=== PATIENT | female | born 1950 | race Caucasian/White ===

== ENCOUNTER 2022-10-30 11:32 | Outpatient (OUT) | payer MEDICARE, SELFPAY ==
--- NOTE | 2022-10-30 11:41 | XR_ITS ---
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 FINDINGS: SPINE ANALYSIS: Average bone mineral density is 1.4-5 g/cm2. T-score (standard deviation relative to young adult mean): 2.0 . -2.0% change since prior study. HIP ANALYSIS: Lowest bone mineral density is within the left femoral trochanter, 0.739 g/cm2. T-score (standard deviation relative to young adult mean): -1.0 . -2.3% change since prior study. IMPRESSION: [employer] Classification: Normal - Low Fracture Risk Electronically authenticated by: PARTHA CAMACHO Date: 10/30/2022 12:57
== END 2022-10-30 11:33 ==
LOC: RAD 11:33
PROVIDERS: PCP Internal Medicine
DX: K74.3 Primary biliary cirrhosis (principal)
CPT/HCPCS: 77080

== ENCOUNTER 2022-12-03 08:30 | Outpatient (OUT) | payer MEDICARE, SELFPAY ==
--- NOTE | 2022-12-03 08:42 | US_ITS ---
[address] [address] Patient Name: MASSIMO CALLAHAN MRN: [id number] date: 1950 Sex: F Assigned Patient Location: [place] Current Patient Location: [place] Accession/Order Number: [id number] Exam Date: 12/03/2022 08:45 Report Date: 12/03/2022 10:19 At the request of: NON-STAFF PHYSICIAN Procedure: US right upper quadrant EXAMINATION: US right upper quadrant HISTORY: Biliary Cholangitis K74.3, Thrombocytopenia D69.6 COMPARISON: No relevant comparison available. TECHNIQUE: Transabdominal evaluation of the right upper quadrant. FINDINGS: LIVER: Nodular liver with heterogeneous echotexture. PORTAL VEIN: Duplex Doppler demonstrates normal hepatopetal flow pattern with flow velocity averaging 31 cm/s. GALLBLADDER: Contains a 1.5 cm stone. No wall thickening or free fluid. BILIARY: No abnormal dilation or stones. Common bile duct diameter is within normal limits. PANCREASE: No visible mass, abnormal atrophy, or duct dilation. KIDNEY: Contain several nonobstructing stones, largest is 5 mm. Benign-appearing 4.8 cm cyst projecting from inferior pole. Size: 9.9 x 5.5 x 5.7 cm US/US right upper quadrant IMPRESSION: 1. Heterogeneous nodular liver which can be seen with cirrhosis. 2. Cholelithiasis. No ultrasound evidence of acute cholecystitis. 3. Nonobstructing right nephrolithiasis. Electronically authenticated by: PARTHA CAMACHO Date: 12/03/2022 10:19
--- NOTE | 2022-12-03 08:50 | US_ITS ---
[address] [address] Patient Name: MASSIMO CALLAHAN MRN: [id number] date: 1950 Sex: F Assigned Patient Location: [place] Current Patient Location: Accession/Order Number: [id number] Exam Date: 12/03/2022 08:51 Report Date: 12/03/2022 09:52 At the request of: NON-STAFF PHYSICIAN Procedure: US abdomen limited EXAM: US abdomen limited HISTORY: SPLENOMEGALY COMPARISON: None. TECHNIQUE: Transabdominal ultrasound evaluation. FINDINGS: Normal contour and homogeneous echotexture. Color Doppler demonstrates uniform blood flow throughout the spleen. No mass or fluid collection. Size: 13.3 x 14.6 x 4.7 cm. US/US abdomen limited IMPRESSION: 1. Mild splenomegaly of uncertain etiology. Electronically authenticated by: PARTHA CAMACHO Date: 12/03/2022 09:52
== END 2022-12-03 08:31 | disposition home or self-care (01) ==
LOC: US 08:30
PROVIDERS: PCP Internal Medicine
DX: K74.3 Primary biliary cirrhosis (principal); D69.6 Thrombocytopenia, unspecified; K80.20 Calculus of gallbladder without cholecystitis without obstruction; N20.0 Calculus of kidney
CPT/HCPCS: 76705

== ENCOUNTER 2022-12-28 12:48 | Outpatient (OUT) | payer MEDICARE, SELFPAY ==
--- NOTE | 2022-12-28 12:50 | MM_ITS ---
Patient: MASSIMO CALLAHAN Exam Date: 12/28/2022 : 1950 Gender:F Ordering : DR ZEUS [facility] Admission #: [id number] Family : DR GAMBOA RAFITA Order #: [id number] CLICK HERE TO VIEW EXAM RADIOLOGY REPORT PROCEDURE: MM TOMOSYNTHESIS SCREENING BI COMPARISON: MG MAMM SCREEN 3D KRISH CAD, 12/25/2021. MG MAMM SCREEN 3D KRISH CAD, 12/23/2020. MG MAMM SCREEN KRISH W CAD, 12/19/2019. MG MAMM KRISH SCRN W CAD DIG, 12/07/2012. INDICATIONS: Screening Calculator Name NCI Breast Cancer Risk Assessment Tool 5 Year Breast Cancer Risk 2.90% Lifetime Breast Cancer Risk 7.10% Personal Breast Cancer No Personal Ovarian Cancer No Treatments None Family Cancers Sister with thyroid cancer at age 63. LOCATION: [facility] BREAST COMPOSITION: Heterogeneously dense,which may obscure small masses. FINDINGS: DIAGNOSTIC CATEGORY 2--BENIGN FINDING: RIGHT BREAST: No significant suspicious finding. Scattered benign-appearing calcifications are present. No significant change has occurred. LEFT BREAST: No significant suspicious finding. Scattered benign-appearing calcifications are present. No significant change has occurred. RECOMMENDATIONS: ROUTINE MAMMOGRAM AND CLINICAL EVALUATION IN 12 MONTHS. PLEASE NOTE: A NORMAL MAMMOGRAM DOES NOT EXCLUDE THE POSSIBILITY OF BREAST CANCER. A CLINICALLY SUSPICIOUS PALPABLE LUMP SHOULD BE BIOPSIED. Dictated by: Nikko Barbosa M.D. on 12/30/2022 at 12:02 Approved by: Nikko Barbosa M.D. on 12/30/2022 at 12:07
== END 2022-12-28 12:49 | disposition home or self-care (01) ==
LOC: MAMMO 12:48
PROVIDERS: PCP Internal Medicine; Visit Provider Midwife
DX: Z12.31 Encounter for screening mammogram for malignant neoplasm of breast (principal); Z80.8 Family history of malignant neoplasm of other organs or systems
CPT/HCPCS: 77063; 77067

== ENCOUNTER 2023-01-05 12:56 | Outpatient (OUT) | payer MEDICARE, SELFPAY ==
--- NOTE | 2023-01-05 | CONS_ITS ---
CONSULTATION DATE: ??01/05/2023 TO:? Dr. Shay CHIEF COMPLAINT:? Includes neck pain, shoulder pain, worse on the left side.? HISTORY:? She reports the pain as being 8/10, sharp in character, with a deep aching component, increased with activities such as lifting maneuvers, pushing/pulling maneuvers, cervical extension.? She feels most comfortable in the semi-recumbent position.? Denies any change in bowel and bladder habits or new sensorimotor changes in the upper extremities, MEDICATIONS:? Current medications include Novato 5 mg b.i.d. p.r.n.? She reports this does help her pain symptoms, improves her quality of life and level of functioning.? She denies any side effects.? EXAM:? Notable for patient having mild dysesthesia long the left C6 dermatome.? She otherwise has a non-focal motor examination of her upper extremities.? No appreciable Spurling?s sign. IMPRESSION:? Our impression is patient appears to have chronic pain secondary to known cervical spinal stenosis.?? Patient complains of left sided neck pain and left upper extremity pain.? She has failed conservative therapy with various non-steroidal agents, most recently ibuprofen, and narcotics have been used for at least the last 6-7 months.? A home exercises program and previous aquatic therapy have failed to improve her symptomatology or level of functioning.? RECOMMENDATIONS:? Therefore, I recommend patient undergo cervical epidural steroid injection under fluoroscopic guidance.? I have also asked her to consider aquatic therapy.? Procedure discussed with the patient.? All her questions were answered.? She agrees to proceed with the outlined plan. As part of providing excellent, safe, comprehensive care, the following was completed at our patient's visit: 1. A medication reconciliation and review to ensure accurate knowledge of current/active medications, including asking our patients to inform us about any [id number] medications or herbal remedies/nutritional supplements/alternative remedies. 2. A review to specifically ensure our patients have had annual screening for: elevated body mass index (BMI, see intake chart for exact total), tobacco use, screening for depression, and screening for unhealthy alcohol use.? When screening is concerning, patients are provided with education and the specific recommendation to discuss the concerning health issue and treatment options with their primary care provider. JENNA
== END 2023-01-05 12:57 | disposition home or self-care (01) ==
PROVIDERS: PCP Internal Medicine; Visit Provider Anesthesiology Pain Medicine
DX: M48.02 Spinal stenosis, cervical region (principal); G89.29 Other chronic pain
CPT/HCPCS: G0463

== ENCOUNTER 2023-01-26 08:53 | Day surgery (SDC) | payer MEDICARE, SELFPAY ==
[2023-01-26 09:05] VITALS: BP 94/64; PULSE 69; RESP 16; TEMP 36.1; O2SAT 98
[2023-01-26 09:12] LABS: Glucometer 182 mg/dL (74-106)
[2023-01-26 10:18] VITALS: BP 138/64; PULSE 63; RESP 18; O2SAT 98
[2023-01-26] MEDS: 0.9 % SODIUM CHLORIDE 10 ML SYRINGE - SALINE FLUSH INJ (10:19)
[2023-01-26] MEDS: BUPIVACAINE HCL 0.25% PF 25 MG/10 ML VIAL INJ (10:19)
[2023-01-26] MEDS: IOHEXOL 240 MG/ML - 10 ML VIAL INJ (10:20)
[2023-01-26] MEDS: LIDOCAINE HCL 2% PF 100 MG/5 ML VIAL INJ (10:20)
[2023-01-26] MEDS: DEXAMETHASONE SODIUM PHOSPHATE 10 MG/ML VIAL INJ (10:20)
[2023-01-26 10:22] VITALS: BP 141/68; PULSE 65; RESP 18; O2SAT 97
--- NOTE | 2023-01-26 10:58 | P.ON_ITS ---
Date of procedure: 01/26/23 Pre-op diagnosis: Cervical radiculopathy Post-op diagnosis: same as pre-op Procedure: Cercical 7, T1 Epidural Steroid Injection Under fluoroscopic guidance Immediate complications none Solution used for injection: Marcaine 0.25% 2mL, 2cc Normal saline, Depo-Medrol 80mg Omnipaque 3 mL Anesthesia local 2% lidocaine up to 4ml Timeout process compliant After informed consent obtained. Patient brought to the procedure room placed in the prone position. Skin overlying the area was prepped and draped in a sterile fashion using betadine. 25 gauge needle used to raise a skin wheel with local anesthetic over the target area identified under fluoroscopy. A 17 gauge Touhy needle Was inserted over the anesthetized area and directed towards the inter- space under fluoroscopic guidance. Epidural space was identified with loss of resistance technique to air. Needle Tip placement confirmed with injection of contrast solution. Steroid solution was then injected. Anesthesia: Local Surgeon: Jarek Valenzuela Condition: stable
== END 2023-01-26 10:29 | disposition home or self-care (01) ==
LOC: SURGOUT 08:54
PROVIDERS: PCP Internal Medicine; Visit Provider Anesthesiology Pain Medicine
DX: M54.12 Radiculopathy, cervical region (principal); Z79.82 Long term (current) use of aspirin; Z79.84 Long term (current) use of oral hypoglycemic drugs; Z79.899 Other long term (current) drug therapy
CPT/HCPCS: 36415; 62321; 82948; J1100; Q9966

== ENCOUNTER 2023-02-03 11:36 | Outpatient (OUT) | payer MEDICARE, SELFPAY ==
--- NOTE | 2023-02-03 11:39 | PM.CN ---
Consult Note: HPI Data of Consult Patient: known to practice within the last 3 years Requesting Physician: Marcella Cuenca NP Primary Care Provider: COOPER ELLER Consult Narrative Reason for consult: procedure f/u Narrative: Ashlee lira pleasant 72 year old female presents for evaluation of chronic neck pain. Recently underwent a C7-T1 BERNADR with mild pain relief roughly 30%. Today rating pain 5-6/10 and would like to discuss additional treatment options cc:: CC: Marcella Cuenca NP Review of Systems ROS Status of ROS 10 or more systems reviewed and unremarkable except as noted in history and below Ears, nose, mouth, and throat Reports: neck pain Musculoskeletal Reports: back pain PFSH PFSH Medical History (Updated 02/03/23 @ 12:43 by Marcella Cuenca NP) Surgical History Meds Home Medications and Allergies Home Medications Medication Instructions Recorded Confirmed Type hydrocodone 5 mg-acetaminophen 325 1 tab PO BID PRN pain #60 tabs 01/05/23 01/26/23 Rx mg tablet acidophilus 100 million 1 cap PO DAILY 01/11/23 01/26/23 History cell-pectin, citrus 10 mg capsule (Probiotic Acidophilus-Pectin) aspirin 81 mg tablet,delayed 81 mg PO DAILY 01/11/23 01/26/23 History release atorvastatin 20 mg tablet 20 mg PO DAILY 01/11/23 01/26/23 History calcium citrate 200 mg (950 mg) 200 mg PO TID 01/11/23 01/26/23 History tablet carvedilol 25 mg tablet 25 mg PO Q12H 01/11/23 01/26/23 History cetirizine 5 mg tablet (Allergy 5 mg PO DAILY PRN allergy symptoms 01/11/23 01/26/23 History Relief (cetirizine)) cholecalciferol (vitamin D3) 50 2,000 unit PO DAILY 01/11/23 01/26/23 History mcg (2,000 unit) capsule cyclosporine 0.05 % eye drops in a 1 drp ophthalmic (eye) Q12H 01/11/23 01/26/23 History dropperette (Restasis) hydrochlorothiazide 12.5 mg tablet 12.5 mg PO DAILY 01/11/23 01/26/23 History levothyroxine 100 mcg tablet 100 mcg PO DAILY 01/11/23 01/26/23 History meloxicam 15 mg tablet 15 mg PO DAILY 01/11/23 01/26/23 History metformin 500 mg tablet 500 mg PO BID 01/11/23 01/26/23 History olopatadine 0.2 % eye drops (Eye 1 drp ophthalmic (eye) DAILY 01/11/23 01/26/23 History Allergy Itch Relief) omega 2-blu-som-fish oil 100 1 cap PO DAILY 01/11/23 01/26/23 History mg-160 mg-1,000 mg capsule (Fish Oil) trazodone 50 mg tablet 100 mg PO BEDTIME 01/11/23 01/26/23 History triamcinolone acetonide 55 mcg 2 spray intranasal DAILY 01/11/23 01/26/23 History nasal spray aerosol (24 Hour Nasal Allergy) ursodiol 300 mg capsule 300 mg PO DAILY 01/11/23 01/26/23 History valsartan 320 mg tablet 320 mg PO DAILY 01/11/23 01/26/23 History Allergies Allergy/AdvReac Type Severity Reaction Status Date / Time Penicillins Allergy Severe Verified 01/11/23 14:48 morphine Allergy Mild Rash Verified 01/11/23 14:48 nickel Allergy Mild Rash Verified 01/11/23 14:48 sulfite Allergy Watery Eye Verified 01/11/23 14:48 Exam Constitutional Documenting provider has reviewed patient's vital signs: yes Common normals: no apparent distress, oriented x3, healthy appearing, alert and well nourished General appearance: cooperative [facility] Common normals: normocephalic, hearing grossly normal bilaterally and moist oral mucous membranes Head and scalp: normocephalic Eye Common normals: PERRL Pupil: PERRL Neck & C-Spine Common normals: full ROM General: normal visual inspection Cervical spine: pain with cervical ROM, cervical spine tenderness and paracervical muscle tenderness Chest Common normals: inspection of chest normal Respiratory Common normals: normal respiratory effort, no retractions and no use of accessory muscles Back & Pelvis Lumbar spine/lower back: ROM limited and pain with ROM Other: facet loading positive on left side. Neuro Common normals: oriented x3, CN's II-XII intact bilaterally, moves all extremities, no focal motor deficits, no sensory deficits noted and deep tendon reflexes 2+ bilaterally Sensorium/orientation: alert Motor exam: strength 5/5 throughout and no movement abnormalities noted Psych Common normals: mental status grossly normal, thought process normal, cooperative, affect normal, speech normal and activity/motor behavior normal Speech: normal speech Thought process: normal thought process Results Additional Findings Additional findings: As part of providing excellent, safe, comprehensive care, the following was completed at our patient's visit: 1. A medication reconciliation and review to ensure accurate knowledge of current/active medications, including asking our patients to inform us about any deli-zog-oswuzwl medications or herbal remedies/nutritional supplements/alternative remedies. 2. A review to specifically ensure our patients have had annual screening for: elevated body mass index (BMI), tobacco use, screening for depression, and screening for unhealthy alcohol use. When screening is concerning, patients are provided with education and the specific recommendation to discuss the concerning health issue and treatment options with their primary care provider. Assessment and Plan Assessment and Plan (1) Cervical radiculopathy: (2) Lumbar spondylosis: Plan patient would like to repeat L3-4 L4-5 RFAs as she has had benefit in the past repeat left L 3-4 L4-5 MBB X2 under fluoroscopy, if provides >80% pain relief and functional improvement will proceed with thermal RFA start duloxetine 30mg HS f/u after injection
== END 2023-02-03 11:37 | disposition home or self-care (01) ==
LOC: PM 11:37
PROVIDERS: PCP Internal Medicine; Visit Provider Nurse Practitioner
DX: M54.12 Radiculopathy, cervical region (principal); M47.816 Spondylosis without myelopathy or radiculopathy, lumbar region
CPT/HCPCS: G0463

== ENCOUNTER 2023-02-04 10:54 | Outpatient (RCR) | payer MEDICARE, SELFPAY | END 2023-03-26 15:01 | disposition home or self-care (01) | LOC: PT 10:54 | PROVIDERS: PCP Internal Medicine; Visit Provider Nurse Practitioner | DX: M48.02 Spinal stenosis, cervical region (principal) | CPT/HCPCS: 97113; 97163 ==

== ENCOUNTER 2023-03-15 10:51 | Outpatient (OUT) | payer MEDICARE, SELFPAY ==
[2023-03-15 11:46] LABS: Microalbumin Urine Random <1.3 mg/dL (<=30.0)
[2023-03-15 12:26] LABS: Alanine Aminotransferase 52 U/L (14-59); Albumin Level 3.5 g/dL (3.4-5.0); Alkaline Phosphatase 195 U/L (46-116); Aspartate Amino Transferase 50 U/L (15-37); BUN Creatinine Ratio 34.9; Bilirubin Total 0.5 mg/dL (0.2-1.0); Calcium 9.7 mg/dL (8.5-10.1); Carbon Dioxide 27.2 mmol/L (21.0-32.0); Chloride 105 mmol/L (98-107); Chol HDL Ratio 2.5; Cholesterol 102 mg/dL (<=200); Estimated GFR (African America 50 (>=60); Estimated GFR (Non-African Ame 42 (>=60); Globulin 3.6 g/dL; Glucose 124 mg/dL (74-106); HDL Cholesterol 41 mg/dL (40-60); LDL Cholesterol Calculated 47.6 mg/dL; Potassium 4.2 mmol/L (3.5-5.1); Sodium 141 mmol/L (136-145); Thyroid Stimulating Hormone 0.967 uIU/mL (0.358-3.740); Total Protein 7.1 g/dL (6.4-8.2); Triglycerides 67 mg/dL (<=150); VLDL CHOLESTEROL 13.4 mg/dL
== END 2023-03-15 10:52 | disposition home or self-care (01) ==
LOC: LAB 10:55
PROVIDERS: PCP Internal Medicine; Visit Provider Internal Medicine
DX: E78.2 Mixed hyperlipidemia (principal); I10 Essential (primary) hypertension; E03.8 Other specified hypothyroidism
CPT/HCPCS: 36415; 80053; 80061; 82043; 84443

== ENCOUNTER 2023-06-23 10:09 | Outpatient (OUT) | payer MEDICARE, SELFPAY ==
--- NOTE | 2023-06-23 10:27 | P.CN_ITS ---
Consult Note: HPI Data of Consult Patient: known to practice within the last 3 years Requesting Physician: Marcella Cuenca NP Primary Care Provider: COOPER ELLER Consult Narrative Reason for consult: procedure f/u Narrative: Ashlee lira pleasant 72 year old female presents for evaluation of chronic low back pain and left hip pain. Today pain 10/10 worse with all activity, denies numbness tingling weakness of legs. Patient recovering from neck surgery with Dr Downs, very pleased with success. Patient would like to discuss chronic low back and left hip pain. 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 - Primary biliary cirrhosis (ICD-10) Osteoarthritis ?M19.90 - Unspecified osteoarthritis, unspecified site (ICD-10) Cervical myelopathy ?G95.9 - Disease of spinal cord, unspecified (ICD-10) Hypothyroid ?E03.9 - Hypothyroidism, unspecified (ICD-10) Diabetes ?E11.9 - Type 2 diabetes mellitus without complications (ICD-10) High cholesterol ?E78.00 - Pure hypercholesterolemia, unspecified (ICD-10) HTN (hypertension) ?I10 - Essential (primary) hypertension (ICD-10) Surgical History History of bunionectomy of both great toes ?Z98.890 - Other specified postprocedural states (ICD-10) History of sinus surgery ?Z98.890 - Other specified postprocedural states (ICD-10) H/O excision of ganglion cyst ?Z98.890 - Other specified postprocedural states (ICD-10) History of repair of rotator cuff ?Z98.890 - Other specified postprocedural states (ICD-10) History of incisional hernia repair ?Z98.890 - Other specified postprocedural states (ICD-10) ?Z87.19 - Personal history of other diseases of the digestive system (ICD-10) History of hysterectomy ?Z90.710 - Acquired absence of both cervix and uterus (ICD-10) History of total knee arthroplasty ?Z96.659 - Presence of unspecified artificial knee joint (ICD-10) Meds Home Medications and Allergies Home Medications Medication Instructions Recorded Confirmed Type hydrocodone 5 mg-acetaminophen 325 1 tab PO BID PRN pain #60 tabs 01/05/23 01/26/23 Rx mg tablet acidophilus 100 million 1 cap PO DAILY 01/11/23 01/26/23 History cell-pectin, citrus 10 mg capsule (Probiotic Acidophilus-Pectin) aspirin 81 mg tablet,delayed 81 mg PO DAILY 01/11/23 01/26/23 History release atorvastatin 20 mg tablet 20 mg PO DAILY 01/11/23 01/26/23 History calcium citrate 200 mg (950 mg) 200 mg PO TID 01/11/23 01/26/23 History tablet carvedilol 25 mg tablet 25 mg PO Q12H 01/11/23 01/26/23 History cetirizine 5 mg tablet (Allergy 5 mg PO DAILY PRN allergy symptoms 01/11/23 01/26/23 History Relief (cetirizine)) cholecalciferol (vitamin D3) 50 2,000 unit PO DAILY 01/11/23 01/26/23 History mcg (2,000 unit) capsule cyclosporine 0.05 % eye drops in a 1 drp ophthalmic (eye) Q12H 01/11/23 01/26/23 History dropperette (Restasis) hydrochlorothiazide 12.5 mg tablet 12.5 mg PO DAILY 01/11/23 01/26/23 History levothyroxine 100 mcg tablet 100 mcg PO DAILY 01/11/23 01/26/23 History meloxicam 15 mg tablet 15 mg PO DAILY 01/11/23 01/26/23 History metformin 500 mg tablet 500 mg PO BID 01/11/23 01/26/23 History olopatadine 0.2 % eye drops (Eye 1 drp ophthalmic (eye) DAILY 01/11/23 01/26/23 History Allergy Itch Relief) omega 7-uvu-nwx-fish oil 100 1 cap PO DAILY 01/11/23 01/26/23 History mg-160 mg-1,000 mg capsule (Fish Oil) trazodone 50 mg tablet 100 mg PO BEDTIME 01/11/23 01/26/23 History triamcinolone acetonide 55 mcg 2 spray intranasal DAILY 01/11/23 01/26/23 History nasal spray aerosol (24 Hour Nasal Allergy) ursodiol 300 mg capsule 300 mg PO DAILY 01/11/23 01/26/23 History valsartan 320 mg tablet 320 mg PO DAILY 01/11/23 01/26/23 History hydrocodone 5 mg-acetaminophen 325 1 tab PO BID PRN pain #60 tabs 03/10/23 Rx mg tablet Allergies Allergy/AdvReac Type Severity Reaction Status Date / Time Penicillins Allergy Severe Verified 01/11/23 14:48 morphine Allergy Mild Rash Verified 01/11/23 14:48 nickel Allergy Mild Rash Verified 01/11/23 14:48 sulfite Allergy Watery Eye Verified 01/11/23 14:48 Exam HENMT Common normals: normocephalic, hearing grossly normal bilaterally and moist oral mucous membranes Head and scalp: normocephalic Eye Common normals: PERRL Pupil: PERRL Neck & C-Spine Common normals: full ROM General: normal visual inspection Chest Common normals: inspection of chest normal Respiratory Common normals: normal respiratory effort, no retractions and no use of accessory muscles Back & Pelvis Lumbar spine/lower back: ROM limited, pain with ROM and straight leg raise negative bilaterally Sacroiliac joints: SI joints normal Other: facet loading positive on left side. Extremity Left lower extremity: hip joint Other: tenderness and pain with palpation of ischial bursa negative GTB negative external log roll mild pain with internal log roll pain follow IT band Extremity image (front): 2 1. Extremity image (back): 2 1. Neuro Common normals: oriented x3, CN's II-XII intact bilaterally, moves all extremities, no focal motor deficits, no sensory deficits noted and deep tendon reflexes 2+ bilaterally Sensorium/orientation: alert Motor exam: strength 5/5 throughout and no movement abnormalities noted Psych Common normals: mental status grossly normal, thought process normal, cooperative, affect normal, speech normal and activity/motor behavior normal Speech: normal speech Thought process: normal thought process Assessment and Plan Assessment and Plan (1) Ischial bursitis of left side: (2) IT band syndrome: (3) Left hip pain: (4) Lumbar spondylosis: Plan medrol dose pack with food left hip xray PT for stretching, evaluate and treat ischial bursitis of left side and IT band syndrome continue mobic 15mg daily with food will discuss potential injections with Dr Valenzuela f/u 8 weeks
== END 2023-06-23 10:10 | disposition home or self-care (01) ==
LOC: PM 10:10
PROVIDERS: PCP Internal Medicine; Visit Provider Nurse Practitioner
DX: M25.552 Pain in left hip (principal); M70.72 Other bursitis of hip, left hip; M76.32 Iliotibial band syndrome, left leg; M47.816 Spondylosis without myelopathy or radiculopathy, lumbar region
CPT/HCPCS: 73502; G0463

== ENCOUNTER 2023-06-23 10:58 | Outpatient (OUT) | payer MEDICARE, SELFPAY ==
--- NOTE | 2023-06-23 11:16 | XR_ITS ---
[facility] [place] [id number] Patient Name: MASSIMO CALLAHAN MRN: [id number] date: 1950 Sex: F Assigned Patient Location: [facility] Current Patient Location: [facility] Accession/Order Number: [id number] Exam Date: 06/23/2023 11:25 Report Date: 06/23/2023 13:03 At the request of: THERON TEMPLE Procedure: XR hip LT min 2V PROCEDURE: XR hip LT min 2V COMPARISON: None. HISTORY: Left Hip Pain FINDINGS: BONES:No acute fracture or dislocation. Severe hip osteoarthritis with joint space narrowing and extensive sclerosis and marginal osteophyte relation of the acetabulum SOFT TISSUES:Negative. No visible soft tissue swelling. EFFUSION:None visible. OTHER: Vascular calcifications. Neurostimulator wire projects over the left sacrum XR/XR hip LT min 2V IMPRESSION: Severe degenerative changes of the left hip Electronically authenticated by: WILVER CARTAGENA Date: 06/23/2023 13:03
--- OUTSIDE RECORDS SUMMARY | 2023-06-23 11:17 | XMS_ITS | CCD ---
Author Name Unknown Address [id number] [place] [address] Organization [facility] Care Team Providers Care Station Installation Supervisor Name Role Phone Vladimir Greco Primary Care Physician Unavail able Vladimir Greco Unavailable Unavailable Cooper Eller Primary Care Provider [phone] Vladimir Greco Primary Care Physician Unavail able Vladimir Greco Primary Care Physician Unavail able Cooper Eller Primary Care Provider Vladimir Greco Primary Care Physician Unavail able Vladimir Greco Primary Care Physician Unavail able Vladimir Greco Primary Care Physician Unavail able Rafita FOSTER, Cooper Ambriz Primary Care Provider [phone] Rafita FOSTER, Cooper Ambriz Primary Care Provider [phone] Cooper Eller MD Primary Care Provider [phone] COOPER ELLER Primary Care Unavailable PRASHANT HERNANDEZ Referring Unavailable SANDRA ALVARENGA Attending Unavailable SANDRA ALVARENGA Referring Unavailable COOPER ELLER Primary Care Unavailable COOPER ELLER Primary Care Unavailable ALEXANDRA FRYE Referring Unavailable COOPER ELLER Primary Care Unavailable ALEXANDRA FRYE Referring Unavailable COOPER ELLER Primary Care Unavailable SANDRA ALVARENGA Admitting Unavailable SANDRA ALVARENGA Attending Unavailable COOPER ELLER Primary Care Physician [phone] Unavailable Primary Care Provider UnavailDR COOPER Allen Attending Unavailable RAFITA, DR GAMBOA Consulting Unavailable RAFITA, DR GAMBOA Admitting Unavailable RAFITA, DR GAMBOA Primary Care Unavailable Wilver Hannah Consulting Unavailable SWATI DIALLO Admitting Unavailable SWATI DIALLO Attending Unavailable RAFITA, DR GAMBOA Primary Care Unavailable SWATI DIALLO Consulting Unavailable TIAN ., DR KELLY Cardoza Admitting Unavailable CALLEJAS ., ANDREW Consulting Unavailable RAFITA, DR GAMBOA Primary Care Unavailable TIAN ., DR KELLY Cardoza Attending Unavailable RAFITA, DR GAMBOA Consulting Unavailable RAFITA, DR GAMBOA Attending Unavailable RAFITA, DR GAMBOA Admitting Unavailable RAFITA, DR GAMBOA Primary Care Unavailable RAFITA, DR GAMBOA Referring Unavailable RAFITA, DR GAMBOA Primary Care Unavailable MISC, DR REYEZ Admitting Unavailable MISC, DR REYEZ Attending Unavailable MISC, DR REYEZ Consulting Unavailable TIAN ., DR KELLY Cardoza Admitting Unavailable CALLEJAS ., ANDREW Consulting Unavailable TIAN ., DR KELLY Cardoza Attending Unavailable RAFITA, DR GAMBOA Primary Care Unavailable TIAN ., DR KELLY Cardoza Admitting Unavailable TIAN ., DR KELLY Cardoza Consulting Unavailable TIAN ., DR KELLY Cardoza Attending Unavailable RAFITA, DR GAMBOA Primary Care Unavailable RAFITA, DR GAMBOA Consulting Unavailable TIAN ., DR KELLY Cardoza Attending Unavailable CALLEJAS ., ANDREW Consulting Unavailable RAFITA, DR GAMBOA Primary Care Unavailable TIAN ., DR KELLY Cardoza Admitting Unavailable TIAN ., DR KELLY Cardoza Admitting Unavailable TIAN ., DR KELLY Cardoza Consulting Unavailable RAFITA, DR GAMBOA Primary Care Unavailable TIAN ., DR KELLY Cardoza Attending Unavailable TIAN ., DR KELLY Cardoza Admitting Unavailable TIAN ., DR KELLY Cardoza Consulting Unavailable TIAN ., DR KELLY Cardoza Attending Unavailable RAFITA, DR GAMBOA Primary Care Unavailable CALLEJAS ., ANDREW Consulting Unavailable TIAN ., DR KELLY Cardoza Admitting Unavailable CALLEJAS ., ANDREW Consulting Unavailable TIAN ., DR KELLY Cardoza Attending Unavailable RAFITA, DR GAMBOA Primary Care Unavailable TIAN ., DR KELLY Cardoza Attending Unavailable CALLEJAS ., ANDREW Consulting Unavailable RAFITA, DR GAMBOA Primary Care Unavailable TIAN ., DR KELLY Cardoza Admitting Unavailable LAKSHMIPATHY ., NARENDSHEYATH Attending Jeanie vailable RAFITA, DR GAMBOA Primary Care Unavailable LAKSHMIPATHY ., NARENDSHEYATH Admitting Jeanie vailable TIAN ., DR KELLY Cardoza Admitting Unavailable TIAN ., DR KELLY Cardoza Consulting Unavailable TIAN ., DR KELLY Cardoza Attending Unavailable RAFITA, DR GAMBOA Primary Care Unavailable TIAN ., DR KELLY Cardoza Admitting Unavailable CALLEJAS ., ANDREW Consulting Unavailable TIAN ., DR KELLY Cardoza Attending Unavailable RAFITA, DR GAMBOA Primary Care Unavailable RAFITA, DR GAMBOA Consulting Unavailable TIAN ., DR KELLY Cardoza Consulting Unavailable TIAN ., DR KELLY Cardoza Attending Unavailable RAFITA, DR GAMBOA Primary Care Unavailable SANDRO ., DR KELLY Cardoza Admitting Unavailable TIAN ., DR KELLY Cardoza Attending Unavailable CALLEJAS ., ANDREW Consulting Unavailable RAFITA, DR GAMBOA Primary Care Unavailable TIAN ., DR KELLY Cardoza Admitting Unavailable CALLEJAS ., ANDREW Admitting Unavailable RAFITA, DR GAMBOA Primary Care Unavailable Wilver Hannah Consulting Unavailable BRITTA ., ANDREW Attending Unavailable BRITTA ., ANDREW Consulting Unavailable Nikko Barbosa Consulting Unavailable MARCO ANTONIO, DR SCHULZ Admitting Unavailable MARCO ANTONIO, DR SCHULZ Attending Unavailable RAFITA, DR GAMBOA Primary Care Unavailable MARCO ANTONIO, DR SCHULZ Consulting Unavailable Geri Vergara MD Unavailable [phone] Geri Vergara Attending Unavailable Geri Vergara Admitting Unavailable TIAN, KELLY S Referring Unavailable Geri Vergara Referring Unavailable MD Gerry Jerry Admitting Unavailable Gerry Jerry Attending Unavailable Geri Vergara Admitting Unavailable Geri Vergara Referring Unavailable Geri Vergara Attending Unavailable Geri Vergara Admitting Unavailable Geri Vergara Referring Unavailable Geri Vergara Attending Unavailable Janie Henning Admitting Unavailable TIAN, KELLY S Referring Unavailable Janie Henning Attending Unavailable LAKISHA STAFFORD [id number] Attending Unavailable SELF, SELF Referring Unavailable LAKISHA STAFFORD [id number] Attending Unavailable COOPER ELLER Primary Care Unavailable SELF, SELF Referring Unavailable Rafita FOSTER, Cooper Kirby Primary Care Unavailfrank Patino MD, Andrae Bradley Attending Unavailable Rafita FOSTER, Cooper Kirby Primary Care Unavailfrank Patino MD, Andrae Bradley Attending Unavailable Rafita FOSTER, Cooper Kirby Primary Care Unavailfrank Patino MD, Andrae Bradley Consulting Unavailable Sukumar FOSTER, Andrae Bradley Attending Unavailable Rafita FOSTER, Cooper Kirby Consulting Unavailfrank Eller MD, Cooper Kirby Primary Care Unavaila lydia Eller MD, Cooper Kirby Consulting Unavailfrank Patino MD, Andrae Bradley Attending Unavailable Rafita FOSTER, Cooper Kirby Primary Care Unavailfrank Patino MD, Andrae Bradley Attending Unavailable Sukumar FOSTER, Andrae Bradley Consulting Unavailable Rafita FOSTER, Cooper Kirby Primary Care Unavaila lydia Patino MD, Andrae Bradley Attending Unavailable Aline BURK-Dee SOSA Unavailable PROVIDER, UNKNOWN Admitting Unavailable PROVIDER, UNKNOWN Attending Unavailable GERI VERGARA Referring Unavailable PROVIDER, UNKNOWN Attending Unavailable PROVIDER, UNKNOWN Admitting Unavailable GERI VERGARA Referring Unavailable PROVIDER, UNKNOWN Attending Unavailable PROVIDER, UNKNOWN Admitting Unavailable GERI VERGARA Referring Unavailable PROVIDER, UNKNOWN Attending Unavailable GERI VERGARA Admitting Unavailable PROVIDER, UNKNOWN Admitting Unavailable PROVIDER, UNKNOWN Attending Unavailable PROVIDER, UNKNOWN Attending Unavailable GERI VERGARA Admitting Unavailable PROVIDER, UNKNOWN Admitting Unavailable PROVIDER, UNKNOWN Attending Unavailable PROVIDER, UNKNOWN Attending Unavailable PROVIDER, UNKNOWN Admitting Unavailable REQUEST, IP PHYSICAL THERAPY SERVICE Consulting Unavailable GERI VERGARA Admitting Unavailable GERI VERGARA Attending Unavailable REQUEST, IP OCCUPATIONAL THERAPY SERVICE Consult ing Unavailable PROVIDER, UNKNOWN Attending Unavailable PROVIDER, UNKNOWN Admitting Unavailable PROVIDER, UNKNOWN Admitting Unavailable PROVIDER, UNKNOWN Attending Unavailable PROVIDER, UNKNOWN Admitting Unavailable PROVIDER, UNKNOWN Attending Unavailable PROVIDER, UNKNOWN Attending Unavailable PROVIDER, UNKNOWN Admitting Unavailable PROVIDER, UNKNOWN Admitting Unavailable PROVIDER, UNKNOWN Attending Unavailable PROVIDER, UNKNOWN Admitting Unavailable GERI VERGARA Referring Unavailable PROVIDER, UNKNOWN Attending Unavailable Allergies Allergy Classification Reported Allergen(s) Allergy Type Date of Onset Reaction(s) Facility (2 sources) Morphine; Translations: [Morphine Sulfate] Drug Allergy rash [facility] (20 sources) nickel; Translations: [Nickel] Drug Allergy 1 Rash, Itching (finding) [facility] (20 sources) Penicillins; Translations: [PENICILLINS] Allergy to substance (disorder) 5 Swelling [facility] (11 sources) Sulfites/Food Preservatives Allergy to substance (disorder) [place] [facility] (20 sources) Morphine; Translations: [Morphine Sulfate] Drug Allergy 5 Rash, Eruption of skin (disorder) [place], [place] (20 sources) Sulfites; Translations: [sulfites] Propensity to adverse reactions to drug 5 [place], [place] (4 sources) Leucine Drug Allergy 1 [facility] (2 sources) Acetaminophen / oxyCODONE Drug Allergy 7 [facility] (7 sources) Penicillin; Translations: [penicillin] Drug Allergy Swelling (morphologic abnormality) [facility] (1 source) Acetaminophen / oxyCODONE Drug Allergy 7 [facility] (1 source) Morphine Drug Allergy 1 [facility] (1 source) Penicillin Drug Allergy 3 [facility] (1 source) Sulfites Drug allergy (disorder) 5 [facility] (1 source) Sulfur Based Preservatives Drug allergy Itching (finding) [facility] Medications Current Medications Medication Drug Class(es) Dates Sig (Normalized) Sig (Original) acetaminophen 325 mg / HYDROcodone bitartrate 5 mg oral tablet (20 sources) Opioid Agonist Start: 05-19-2022 take 1 tablet by mouth twice daily as needed acetaminophen-hyd rocodone 325 mg-5 mg oral tablet TAKE 1 TABLET BY MOUTH TWICE A DAY NEEDED Start Date: 05/19/22 Status: Ordered Start: 08-05-2021 End: 08-05-2021 take 1 tablet by mouth once as needed for pain 1 tablet, Oral, ONCE PRN, Pain Moderate (4-6), Pain Severe (7-10), Starting on Wed08/05/21 at 1451, For 1 dose Maximum dose of acetaminophen is 4000 mg from all sources in 24 hours. PACU only take 2 tablets by [facility] once as needed hydrocodone-acetaminophen (NORCO) 5-325 mg per tablet Take 2 Tablets by mouth. As needed 0 Suspended acetaminophen 325 mg / oxyCODONE hydrochloride 5 mg oral tablet (1 source) Opioid Agonist Start: 04-03-2023 End: 04-14-2023 take 1-2 tablets by mouth every six hours as needed for pain oxyCODONE-acetaminophen (Percocet) 5-325 mg per tablet Indications: History of major orthopedic surgery Take 1-2 Tablets by mouth every 6 hours as needed for Pain for up to 11 days. 84 Tablet 0 04/03/2023 04/14/2023 Active Aspirin (20 sources) Platelet Aggregation Inhibitor, Nonsteroidal Anti-inflammator y Drug Start: 05-19-2022 aspirin 81 mg, Daily, Refills(s) 0 Start Date: 05/19/22 Status: Ordered Start: 09-25-2015 take 1 tablet by janie th once daily aspirin EC 81 MG EC tablet Take 1 tablet by mouth daily 30 tablet 3 09/25/2015 Active atorvastatin 20 mg oral tablet (20 sources) HMG-CoA Reductase Inhibitor Start: 05-19-2022 take 1 tablet by mouth once daily atorvastatin 20 mg Tab 20 mg = 1 tab(s), Oral, Daily, # 30 tab(s), Refills(s) 0 Start Date: 05/19/22 Status: Ordered Start: 05-27-2018 End: 07-25-2021 take 1 tablet by mouth once daily atorvastatin (LIPITOR) 20 MG tablet Take 1 tablet by mouth daily 90 tablet 3 07/25/2021 Active bismuth subsalicylate (2 sources) Bismuth take 0.5 tablet by mouth once daily Bismuth Subsalicylate (PEPTO-BISMOL PO) Take by mouth 1/2 tablet daily 0 Active take 1 tablet by mouth once camille y Bismuth Subsalicylate (PEPTO-BISMOL PO) Take by mouth 1 tablet daily 0 Active calcium carbonate 1500 mg oral tablet (8 sources) take 1 tablet by mouth three times daily calcium carbonate 600 MG TABS tablet Take 1 tablet by mouth 3 times daily 0 Active calcium chloride 0.0014 meq/ml / potassium chloride 0.004 meq/ml / sodium chloride 0.103 meq/ml / sodium lactate 0.028 meq/ml injectable solution (4 sources) Start: 02-15-2023 lactated ringers iv infusion Start: 08-05-2021 IntraVENous, a t 125 mL/hr, CONTINUOUS, Starting on Wed08/05/21 at 1515, PACU only Start: 08-05-2021 lactated ringe rs infusion Calcium Citrate (20 sources) Start: 05-19-2022 calcium citrat e Daily, Refills(s) 0 Start Date: 05/19/22 Status: Ordered Calcium Citrate 150 MG CAPS Take by mouth 3 times daily. 0 Active calcium citrate 760 mg calcium /3.5 gram oral granules take 1500 by oral route daily carvedilol 25 mg oral tablet (20 sources) alpha-Adrenergic Walker, beta-Adrenergic Walker Start: 11-10-2022 take 1 tablet by mouth twice daily carvedilol 25 mg Tab 25 mg = 1 tab(s), Oral, BID, Refills(s) 0 Start Date: 11/10/22 Status: Ordered Start: 01-13-2022 take 1 tablet by janie twice daily carvedilol (COREG) 6.25 MG tablet Take 1 tablet by mouth 2 times daily 1 tablet 0 01/13/2022 Active ceFAZolin 2000 mg injection (1 source) Cephalosporin Antibacterial Start: 02-15-2023 End: 02-15-2023 ceFAZolin (ANCEF) 2,000 mg in dextrose 50 mL ivpb Zyrtec (20 sources) Histamine-1 Receptor Antagonist Start: 05-19-2022 Zyrtec 10 mg, Daily, Refills(s) 0 Start Date: 05/19/22 Status: Ordered cetirizine (ZyrT EC Allergy) 10 MG tablet Take 10 mg by mouth. 0 Active cholecalciferol 0.05 mg oral tablet (20 sources) Vitamin D Cholecalciferol (Vitamin D) 50 MCG (2000 UT) TABS Take by mouth. 0 Active take 1 tablet by mouth twice zulema ly vitamin D (CHOLECALCIFEROL) 1000 UNIT TABS tablet Take 1,000 Units by mouth 2 times daily 0 Active take 2 capsules by mouth once [place] Vitamin D3 2,000 unit oral capsule take 2 capsules by oral route daily clindamycin 150 mg oral capsule (5 sources) Lincosamide Antibacterial Start: 05-19-2022 take 3 capsules by mouth every eight hours clindamycin 150 mg Cap 450 mg = 3 cap(s), Oral, q8hr, # 90 cap(s), Refills(s) 0 Start Date: 05/19/22 Status: Ordered Start: 08-05-2021 End: 08-05-2021 clindamycin (CLEOCIN) 900 mg in dextrose 5 % 50 mL IVPB Co Q-10 (5 sources) Start: 05-19-2022 Co Q-10 Daily, Refills(s) 0 Start Date: 05/19/22 Status: Ordered Coenzyme Q10 (COQ10 PO) (8 sources) Coenzyme Q10 (CO Q10 PO) Take by mouth daily 0 Active Coenzyme Q10 (CO Q10 PO) Take by mouth 0 Active cyclobenzaprine hydrochloride 10 mg oral tablet (7 sources) Muscle Relaxant Start: 04-02-2023 End: 06-17-2023 take 1 tablet by mouth three times daily as needed cyclobenzaprine (FLEXERIL) 10 MG tablet Take 1 Tablet by mouth 3 times daily as needed. 90 Tablet 3 06/17/2023 Active Restasis (20 sources) Calcineurin Inhibitor Immunosuppressant Start: 11-10-2022 take 1 drop(s) into the eye(s) twice daily Restasis ophthalmic 1 drop(s), BID, Refill(s) 0 Start Date: 11/10/22 Status: Ordered Start: 02-01-2018 take 1 drop(s) into the eye(s) every twelve hours Restasis 0.05 % ophthalmic (eye) dropperette 02/01/2018 instill 1 drop into both eyes by ophthalmic route every 12 hours cycloSPORINE (RE STASIS OP) by Ophthalmic route 2 times a day. 0 Suspended cycloSPORINE (RE STASIS OP) by Ophthalmic route 2 times a day. 0 Active cycloSPORINE (RE STASIS OP) by Ophthalmic route. 0 Active take 1 drop(s) into the eye(s) twice daily CycloSPORINE (RESTASIS OP) Apply 1 drop to eye 2 times daily 0 Active 1 ml dexamethasone phosphate 10 mg/ml injection (1 source) Corticosteroid Start: 02-15-2023 End: 02-15-2023 dexamethasone sod phosphate PF (DECADRON) 10 MG/ML injection diclofenac potassium 50 mg oral tablet (4 sources) Nonsteroidal Anti-inflammatory Drug diclofenac (CATAF TREVINO) 50 MG tablet 50 mg 2 times daily 0 Active Eye Multivitamin oral tablet (5 sources) Start: 05-19-2022 Eye Multivitam in oral tablet Daily, Refill(s) 0 Start Date: 05/19/22 Status: Ordered 2 ml fentaNYL 0.05 mg/ml injection (2 sources) Opioid Agonist Start: 08-05-2021 50 mcg, IntraV ENous, EVERY 5 MIN PRN, Pain Severe (7-10), Starting on Wed08/05/21 at 1451, For 4 doses Phase I - Initial therapy for severe pain. PACU only Start: 08-05-2021 25 mcg, IntraV ENous, EVERY 5 MIN PRN, Pain Moderate (4-6), Starting on Wed08/05/21 at 1451, For 4 doses Phase I - Initial therapy for moderate pain. PACU only Fish Oils (16 sources) Start: 05-19-2022 [place]-3 Fish O il Daily, Refills(s) 0 Start Date: 05/19/22 Status: Ordered End: 11-27-2014 take 1 capsule by mouth once daily Fish Oil 500 mg oral capsule 11/27/2014 take 1 capsule by oral route daily hydroCHLOROthiazide 12.5 mg oral tablet (20 sources) Thiazide Diuretic Start: 05-19-2022 take 1 tablet by mouth once daily hydrochlorothiazide 12.5 mg Tab TAKE 1 TABLET BY MOUTH EVERY DAY Start Date: 05/19/22 Status: Ordered take 1 capsule by mo [facility] once daily hydrochlorothiazide (MICROZIDE) 12.5 MG capsule Take 12.5 mg by mouth daily. 0 Active End: 05-13-2016 take 0.5 tablet by mouth once daily in the morning hydrochlorothiazide 25 mg oral tablet 05/13/2016 take 0.5 tablet by oral route once a day (in the morning) levothyroxine sodium 0.1 mg oral tablet (20 sources) l-Thyroxine Start: 05-19-2022 take 1 tablet by mouth once daily levothyroxine 100 mcg (0.1 mg) Tab 100 mcg = 1 tab(s), Oral, Daily, # 30 tab(s), Refills(s) 0 Start Date: 05/19/22 Status: Ordered Start: 05-27-2018 End: 07-25-2021 take 1 tablet by mouth once daily levothyroxine (SYNTHROID) 100 MCG tablet Take 1 tablet by mouth Daily 90 tablet 3 07/25/2021 Active lisinopril 40 mg oral tablet (20 sources) Angiotensin Converting Enzyme Inhibitor Start: 05-19-2022 take 1 tablet by mouth once daily lisinopril 40 mg Tab 40 mg = 1 tab(s), Oral, Daily, # 30 tab(s), Refills(s) 0 Start Date: 05/19/22 Status: Ordered Start: 10-03-2021 [facility] lisinopril (PRINIVIL;ZESTRIL) 40 MG tablet Take 1 tablet by mouth daily 90 tablet 1 10/03/2021 Active Start: 06-20-2021 End: 07-25-2021 take 1 tablet by mouth once daily lisinopril (PRINIVIL;ZESTRIL) 20 MG tablet Take 1 tablet by mouth daily 90 tablet 3 07/25/2021 Active Start: 05-30-2018 take 1 tablet by janie th once daily lisinopril (PRINIVIL;ZESTRIL) 20 MG tablet Take 1 tablet by mouth daily 90 tablet 4 05/29/2019 Active melatonin 10 mg oral capsule (19 sources) take 1 capsule by mo uth once daily Melatonin 10 MG CAPS Take 10 mg by mouth nightly 0 Active take 1 tablet by mouth once camille y melatonin 10 mg oral tablet take 1 tablet by oral route daily meloxicam 15 mg oral tablet (20 sources) Nonsteroidal Anti-inflammatory Drug Start: 05-19-2022 take 1 tablet by mouth once daily meloxicam 15 mg Tab 15 mg = 1 tab(s), Oral, Daily, # 30 tab(s), Refills(s) 0 Start Date: 05/19/22 Status: Ordered metFORMIN hydrochloride 500 mg oral tablet (20 sources) Biguanide Start: 09-17-2021 take 1 tablet by mouth once daily metFORMIN (GLUCOPHAGE) 500 MG tablet Indications: Type 2 diabetes mellitus without complication, without long-term current use of insulin (HCC) Take 1 tablet by mouth daily 180 tablet 3 09/17/2021 Active Start: 01-09-2020 take 1 tablet by janie th three times daily at dinner metformin 500 mg oral tablet 01/09/2020 take 1 tablet (500 mg) by oral route 3 times per day with morning and evening meals Start: 08-29-2019 take 1 tablet by janie th three times daily at mealtime metFORMIN (GLUCOPHAGE) 500 MG tablet Take 1 tablet by mouth 3 times daily (with meals) 180 tablet 4 08/29/2019 Active Start: 05-27-2018 take 1 tablet by janie th twice daily metformin 500 mg Tab TAKE 1 TABLET BY MOUTH TWICE A DAY Start Date: 05/19/22 Status: Ordered Multivitamin preparation (5 sources) Start: 05-19-2022 multivitamin D aily, Refill(s) 0 Start Date: 05/19/22 Status: Ordered Nasacort Allergy 24HR (5 sources) Start: 05-19-2022 Nasacort Aller gy 24HR Daily, Refill(s) 0 Start Date: 05/19/22 Status: Ordered NONFORMULARY (8 sources) take 1 tablet by mouth once daily NONFORMULARY Take 1 tablet by mouth daily RESTORE OCULAR & CO-Q10 0 Active take 1 tablet by mouth twice zulema ly NONFORMULARY Take 1 tablet by mouth 2 times daily RESTORE OCULAR & CO-Q10 0 Active olopatadine 1 mg/ml ophthalmic solution (20 sources) Histamine-1 Receptor Inhibitor End: 07-28-2017 take 1 drop(s) into the eye(s) twice daily olopatadine (PATANOL) 0.1 % ophthalmic solution 1 drop 2 times daily 0 Active take 1 drop(s) into the eye(s) once daily Pataday 0.2 % ophthalmic (eye) drops instill 1 drop into both eyes by ophthalmic route once daily [place] 3-6-9 Fatty Acids (TRI PLE OMEGA-3-6-9 ORAL) (20 sources) [place] 3-6-9 Fatt y Acids (TRIPLE OMEGA-3-6-9 ORAL) Take by mouth. 0 Suspended [place] 3-6-9 Fatt y Acids (TRIPLE OMEGA-3-6-9 ORAL) Take by mouth. 0 Active [place]-3 Fatty Acids (OMEGA 3 PO) (8 sources) take 1 tablet by mouth once daily [place]-3 Fatty Acids (OMEGA 3 PO) Take 1 tablet by mouth daily 0 Active 2 ml ondansetron 2 mg/ml injection (1 source) Serotonin-3 Receptor Antagonist Start: 08-05-2021 End: 08-05-2021 4 mg, IntraVENous, ONCE PRN, Nausea, Starting on Wed08/05/21 at 1451, For 1 dose Initial antiemetic therapy. PACU only Vit-Fe Fumarate-FA ( VITAMIN PO) (8 sources) Vit-Fe Fumarate-FA ( VITAMIN PO) Take by mouth daily 0 Active Vit-Fe Fumarate-FA ( VITAMIN PO) Take by mouth 0 Active Probiotic 10 Ultra Strength (1 source) Start: 11-10-2022 Probiotic 10 U ltra Strength Refill(s) 0 Start Date: 11/10/22 Status: Ordered Probiotic Product (PROBIOTIC PO) (4 sources) Probiotic Produc t (PROBIOTIC PO) Take by mouth daily 0 Active Probiotic Produc t (PROBIOTIC PO) Take by mouth 0 Active 2 ml prochlorperazine 5 mg/ml injection (1 source) Phenothiazine Start: 08-05-2021 End: 08-05-2021 5 mg, IntraVENous, ONCE PRN, Nausea, Starting on Wed08/05/21 at 1451, For 1 dose Secondary antiemetic therapy. PACU only 5 ml sodium chloride 9 mg/ml injection (3 sources) Start: 08-05-2021 sodium chlorid e flush 0.9 % injection 5-40 mL Start: 08-05-2021 0.9 % sodium c hloride infusion Start: 08-05-2021 sodium chlorid e flush 0.9 % injection 5-40 mL traZODone hydrochloride 50 mg oral tablet (20 sources) Serotonin Reuptake Inhibitor Start: 11-10-2022 take 1 tablet by mouth once daily at bedtime traZODONE 50 mg Tab 50 mg = 1 tab(s), Oral, Once a day (at bedtime), Refills(s) 0 Start Date: 11/10/22 Status: Ordered Triamcinolone (20 sources) Corticosteroid Triamcinolone Acetonide (NASACORT NASAL) Use in each nostril. 0 Suspended Triamcinolone Ac etonide (NASACORT NASAL) Use in each nostril. 0 Active Triamcinolone Ac etonide (NASACORT AQ NA) by Nasal route daily One spray in each nostril once a day 0 Active Nasacort 55 mcg nasal aerosol,spray apply 1 spray by nasal route daily Triamcinolone Ac etonide (NASACORT AQ NA) by Nasal route 0 Active ubidecarenone 100 mg / vitamin e 5 unt oral capsule (20 sources) Coenzyme Q10 (Co Q 10) 100 MG CAPS Take by mouth. 0 Active ursodiol 500 mg oral tablet (20 sources) Bile Acid Start: 05-19-2022 take 7.5 mg by mouth twice daily at mealtime ursodiol 500 mg Tab 7.5 mg/kg, Oral, BID, with food, # 180 tab(s), Refills(s) 0 Start Date: 05/19/22 Status: Ordered Start: 10-25-2021 take 1 tablet by janie th twice daily ursodiol (ACTIGALL) 500 MG tablet Take 500 mg by mouth 2 times daily 0 10/25/2021 Active Start: 07-02-2021 take 3 capsules by out once daily ursodiol (ACTIGALL) 300 MG capsule Indications: Primary biliary cirrhosis (HCC) Take 3 capsules by mouth daily 270 capsule 3 07/02/2021 Active Start: 01-09-2020 take 4 capsules by m outh once daily, then take 2 capsules by mouth in the morning, then take 1 capsule by mouth Actigall 300 mg oral capsule 01/09/2020 Take 4 capsules a day, 2 in the morning and 1 at night Start: 08-29-2019 take 4 capsules by m outh once daily ursodiol (ACTIGALL) 300 MG capsule Take 4 capsules by mouth daily 270 capsule 3 08/29/2019 Active Start: 07-11-2019 take 3 capsules by m outh once daily, then take 2 capsules by mouth in the morning, then take 1 capsule by mouth Actigall 300 mg oral capsule 07/11/2019 Take 3 capsules a day, 2 in the morning and 1 at night Start: 07-11-2019 take 3 capsules by m outh once daily, then take 2 capsules by mouth in the morning, then take 1 capsule by mouth Actigall 300 mg oral capsule 07/11/2019 Take 3 capsules a day, 2 in the morning and 1 at night Start: 08-02-2018 take 3 capsules by m outh once daily ursodiol (ACTIGALL) 300 MG capsule Take 3 capsules by mouth daily 270 capsule 3 08/02/2018 Active Start: 11-27-2014 take 4 capsules by m outh once daily, then take 2 capsules by mouth in the morning, then take 2 capsules by mouth Actigall 300 mg oral capsule 11/27/2014 Take 4 capsules a day, 2 in the morning and 2 at night take 2 tablets by mo uth twice daily ursodiol (ACTIGALL) 250 MG TABS tablet Take 500 mg by mouth 2 times daily. 0 Active valsartan 320 mg oral tablet (20 sources) Angiotensin 2 Receptor Walker Start: 11-10-2022 take 1 tablet by mouth once daily valsartan 320 mg Tab 320 mg = 1 tab(s), Oral, Daily, Refills(s) 0 Start Date: 11/10/22 Status: Ordered Vitamin D (8 sources) Start: 05-19-2022 Vitamin D Camille y, Refills(s) 0 Start Date: 05/19/22 Status: Ordered take 1 tablet by mouth twice zulema ly vitamin D (CHOLECALCIFEROL) 1000 UNIT TABS tablet Take 1,000 Units by mouth 2 times daily 0 Active Completed/Discontinued Medications Medication Drug Class(es) Dates Sig (Normalized) Sig (Original) acetaminophen 325 mg oral tablet (1 source) Start: 2 End: 2 acetaminophen (TYLENOL) tablet 650 mg calcium carbonate 1250 mg / cholecalciferol 400 unt oral tablet (11 sources) Vitamin D End: 8 take 1 tablet by mouth four times daily Calcium 500 + D 500 mg(1,250mg) -400 unit oral tablet 02/01/2018 take 1 tablet by oral route 4 times a day calcium citrate 760 mg calcium /3.5 gram oral granules (2 sources) calcium citrate 760 mg calcium /3.5 gram oral granules take 1500 by oral route daily coenzyme q10 60 mg / red yeast rice 600 mg oral capsule (11 sources) End: 8 take 1 capsule by mouth once daily co Q10-red yeast rice 60-600 mg oral capsule 02/01/2018 take 1 capsule by oral route daily docusate sodium 100 mg oral capsule (5 sources) Start: 3 End: 4 take 1 capsule by mouth twice daily docusate sodium (COLACE) 100 MG capsule Take 1 Capsule by mouth 2 times daily. 60 Capsule 0 04/02/2023 06/17/2023 Discontinued Esomeprazole (11 sources) Proton Pump Inhibitor End: 5 nexium 22.3 mg 11/27/2014 one tablet in the morning esomeprazole 20 mg / naproxen 500 mg delayed release oral tablet (11 sources) Proton Pump Inhibitor, Nonsteroidal Anti-inflammatory Drug End: 5 take 1 tablet by mouth twice daily 30 minutes before mealtime Vimovo 500-20 mg oral tablet,IR,delayed rel,biphasic 05/29/2014 take 1 tablet by oral route 2 times per day 30 minutes before meals estrogens, conjugated (residential) 0.625 mg/ml vaginal cream (11 sources) Estrogen End: 6 apply 0.5 g topically three times weekly Premarin 0.625 mg/gram vaginal cream 05/13/2016 apply 0.5 gram by topical route three times a wk 2 ml famotidine 10 mg/ml injection (1 source) Histamine-2 Receptor Antagonist Start: 2 End: 2 famotidine (PEPCID) injection 20 mg ferrous sulfate 325 mg extended release oral capsule (2 sources) End: 8 take 1 capsule by mouth once daily iron 325 mg (65 mg iron) oral capsule, extended release 07/28/2017 take 1 capsule by oral route daily fluticasone furoate 0.0275 mg/actuat metered dose nasal spray (11 sources) Corticosteroid End: 3 take 2 spray(s) nasal route once daily Veramyst 27.5 mcg/actuation nasal spray,suspension 12/12/2012 spray 2 sprays (55 mcg) in each nostril by intranasal route once daily [id number] -115HC Oral (11 sources) End: 4 glucosamin-chond- [id number] Oral 06/12/2013 hydroCHLOROthiazide 25 mg / losartan potassium 100 mg oral tablet (11 sources) Thiazide Diuretic, Angiotensin 2 Receptor Walker End: 5 take 1 tablet by mouth once daily losartan-hydrochl orothiazide 100-25 mg oral tablet 11/27/2014 take 1 tablet by oral route once daily Iron (9 sources) End: 8 take 1 capsule by mouth once daily iron 325 mg (65 mg iron) oral capsule, extended release 07/28/2017 take 1 capsule by oral route daily krill oil 500 mg oral capsule (11 sources) End: 8 take 1 capsule by mouth twice daily krill oil 500 mg oral capsule 07/28/2017 take 1 capsule by oral route 2 times a day Suprep Bowel Prep Kit 17.5-3.13-1.6 gram oral recon soln (18 sources) Start: 7 End: 8 Suprep Bowel Prep Kit 17.5-3.13-1.6 gram oral recon soln 11/12/2016 07/28/2017 take as directed Start: 09-19-2015 Suprep Bowel P rep Kit 17.5-3.13-1.6 gram oral recon soln 09/19/2015 take as directed mometasone furoate 0.05 mg/actuat metered dose nasal spray (11 sources) Corticosteroid End: 11-27-2014 take 2 spray(s) nasal route once daily Nasonex 50 mcg/actuation nasal spray,non-aerosol 11/27/2014 spray 2 sprays in each nostril by intranasal route once daily multivitamin Oral tablet (11 sources) End: 05-13-2016 take 1 tablet by mouth once daily multivitamin Oral tablet 05/13/2016 take 1 tablet by oral route daily naloxone hydrochloride 40 mg/ml nasal spray (5 sources) Opioid Antagonist Start: 04-02-2023 End: 06-17-2023 naloxone 4 mg/0.1 mL nasal liquid Use 1 spray in one nostril (alternate sides) as needed for Drug Overdose for up to 1 dose. Use every 2-3 minutes until help arrives. 1 Each 1 04/02/2023 06/17/2023 Discontinued naproxen sodium 220 mg oral capsule (11 sources) Nonsteroidal Anti-inflammatory Drug End: 11-27-2014 take 1 capsule by mouth once daily naproxen sodium 220 mg oral capsule 11/27/2014 take 1 capsule by oral route daily obeticholic acid 5 mg oral tablet (15 sources) Farnesoid X Receptor Agonist Start: 01-09-2020 take 2 tablets by mouth once daily Ocaliva 5 mg oral tablet 01/09/2020 TAKE 2 TABLET DAILY. Start: 01-09-2020 take 2 tablets by mo [facility] once daily Ocaliva 5 mg oral tablet 01/09/2020 TAKE 2 TABLET DAILY. Start: 08-29-2019 Obeticholic Ac id (OCALIVA) 5 MG TABS 5 mg daily 30 tablet 0 08/29/2019 Active Start: 03-24-2018 [facility] Ocaliva 5 mg oral tablet 01/24/2019 TAKE 1 TABLET DAILY. Muldrow-3 350 mg-235 mg- 90 mg-597 mg oral capsule,delayed release(DR/EC) (11 sources) take 1 capsule by mouth once daily [place]row-3 350 mg-235 mg- 90 mg-597 mg oral capsule,delayed release(DR/EC) take 1 capsule by oral route daily 24 hr oxybutynin chloride 15 mg extended release oral tablet (20 sources) Cholinergic Muscarinic Antagonist Start: 016 End: 016 take 1 tablet by mouth once daily oxybutynin chloride 15 mg oral tablet extended release 24hr 08/13/2015 05/13/2016 take 1 tablet (15 mg) by oral route once daily End: 11-27-2014 take 1 tablet by mouth twice daily oxybutynin chloride 5 mg oral tablet 11/27/2014 take 1 tablet (5 mg) by oral route 2 times per day oral (11 sources) oral ta ke once daily Probiotic oral (11 sources) Probiotic oral o nce daily Restore ete vitamin (9 sources) Restore ete kaleb min 2 tablets daily- eye dr. Flores (11 sources) Cholinergic Muscarinic Antagonist End: 06-12-2013 solifenacin Oral 06/12/2013 Suprep Bowel Prep Kit 17.5-3.13-1.6 gram oral recon soln (4 sources) Start: 11-12-2016 End: 07-28-2017 Suprep Bowel Prep Kit 17.5-3.13-1.6 gram oral recon soln 11/12/2016 07/28/2017 take as directed Start: 09-19-2015 Suprep Bowel P rep Kit 17.5-3.13-1.6 gram oral recon soln 09/19/2015 take as directed traMADol hydrochloride 50 mg oral tablet (11 sources) Opioid Agonist End: 05-29-2014 take 1 tablet by mouth every four to six hours as needed tramadol 50 mg oral tablet 05/29/2014 take 1 tablet (50 mg) by oral route every 4-6 hours as needed ubiquinol 100 mg oral capsule (11 sources) Start: 07-11-2019 take 2 capsules by mouth once daily coQ10 (ubiquinol) 100 mg oral capsule 07/11/2019 take 2 capsules by oral route daily take 1 capsule by mouth once zulema ly coQ10 (ubiquinol) 100 mg oral capsule take 1 capsule by oral route daily Problems Active Problems Problem Classification Problem Date Documented Date Episodic/Chronic Coagulation and hemorrhagic disorders (2 sources) Thrombocytopenia, unspecified; Translations: [Thrombocytopenia, unspecified] Onset: 11-23-2022 Chronic Diabetes mellitus with complications (1 source) Type 2 diabetes mellitus with unspecified complications; Translations: [Type 2 diabetes mellitus with unspecified complications] Onset: 03-23-2023 Chronic Diabetes mellitus without complication (20 sources) Type 2 diabetes mellitus; Translations: [Type 2 diabetes mellitus without complication] Onset: 05-19-2016 Resolved: 04-03-2015 04-03-2015 Chronic Disorders of lipid metabolism (20 sources) Other and unspecified hyperlipidemia; Translations: [Mixed hyperlipidemia] Onset: 05-19-2016 Resolved: 04-03-2015 05-19-2016 Chronic Essential hypertension (20 sources) Essential hypertension; Translations: [Hypertensive disorder] Onset: 05-08-2015 Resolved: 04-03-2015 05-08-2015 Chronic Genitourinary symptoms and ill-defined conditions (11 sources) Mixed urinary incontinence; Translations: [Incontinence] Onset: 02-12-2016 04-06-2016 Chronic Genitourinary symptoms and ill-defined conditions (5 sources) Urgent desire to urinate; Translations: [Increased frequency of urination] Episodic Menopausal disorders (3 sources) Unspecified menopausal and postmenopausal disorder; Translations: [Menopausal and female climacteric states] Onset: 01-09-2020 Chronic Osteoarthritis (1 source) Unilateral primary osteoarthritis, left knee; Translations: [UNI PRIM OSTEOARTHRITIS LT KNEE] Onset: 10-15-2021 Chronic Other connective tissue disease (1 source) Presence of left artificial knee joint; Translations: [PRESENCE LEFT ARTIFICIAL KNEE JOINT] Onset: 11-26-2021 Chronic Other diseases of bladder and urethra (2 sources) Bladder muscle dysfunction - overactive; Translations: [OAB (overactive bladder)] Onset: 02-12-2016 04-06-2016 Chronic Other diseases of bladder and urethra (20 sources) Overactive bladder; Translations: [Overactive bladder] Onset: 02-12-2016 04-06-2016 Chronic Other liver diseases (20 sources) Biliary cirrhosis Onset: 01-26-2014 Chronic Other liver diseases (20 sources) Primary biliary cholangitis; Translations: [Primary biliary cirrhosis] Onset: 05-24-2003 02-25-2018 Chronic Other liver diseases (20 sources) Primary biliary cirrhosis; Translations: [PRIMARY BILIARY CIRRHOSIS] Onset: 11-27-2014 Chronic Other liver diseases (2 sources) Biliary cirrhosis, unspecified; Translations: [Biliary cirrhosis, unspecified] Onset: 11-23-2022 Chronic Other nervous system disorders (1 source) Other chronic pain; Translations: [OTHER CHRONIC PAIN] Onset: 03-25-2022 Chronic Other nervous system disorders (2 sources) Spinal cord disease; Translations: [Disease of spinal cord, unspecified] 10-26-2022 Chronic Other nervous system disorders (1 source) Disease of spinal cord, unspecified; Translations: [Disease of spinal cord, unspecified] Onset: 10-26-2022 Chronic Other nervous system disorders (2 sources) Disorder of nervous system; Translations: [Other specified disorders of central nervous system] 03-22-2023 Episodic Other nervous system disorders (1 source) Other specified disorders of central nervous system; Translations: [Other specified disorders of central nervous system] Onset: 03-23-2023 Episodic Other nutritional; endocrine; and metabolic disorders (2 sources) Body mass index 30+ - obesity; Translations: [Body mass index (BMI) 30.0-30.9, adult] 03-23-2023 Chronic Other nutritional; endocrine; and metabolic disorders (1 source) Body mass index (BMI) 30.0-30.9, adult; Translations: [Body mass index (BMI) 30.0-30.9, adult] Onset: 03-23-2023 Chronic Other screening for suspected conditions (not mental disorders or infectious disease) (12 sources) Encounter for screening mammogram for malignant neoplasm of breast; Translations: [Abnormal finding of blood chemistry, unspecified] Onset: 12-25-2021 Episodic Residual codes; unclassified (6 sources) History of major orthopedic surgery; Translations: [Other specified postprocedural states] Onset: 04-03-2023 04-03-2023 Episodic Residual codes; unclassified (2 sources) History of surgical procedure on cervical spine; Translations: [Other specified postprocedural states] 04-22-2023 Episodic Spondylosis; intervertebral disc disorders; other back problems (20 sources) Other spondylosis with radiculopathy, lumbar region; Translations: [Sacroiliitis, not elsewhere classified] Onset: 02-19-2022 Chronic Thyroid disorders (20 sources) Thyrotoxicosis without mention of goiter or other cause, and without mention of thyrotoxic crisis or storm; Translations: [Hypothyroidism] Onset: 02-26-2017 02-26-2017 Chronic Unclassified (4 sources) LOW BACK PAIN, UNSPECIFIED; Translations: [LOW BACK PAIN, UNSPECIFIED] Onset: 03-05-2022 Past or Other Problems Problem Classification Problem Date Documented Da te Episodic/Chronic Calculus of urinary tract (1 source) Kidney stone; Translations: [Renal stones] Episodic Other connective tissue disease (4 sources) Other muscle spasm; Translations: [OTHER MUSCLE SPASM] Onset: 05-07-2022 Episodic Other connective tissue disease (4 sources) Pain in right foot; Translations: [PAIN IN RIGHT FOOT] Onset: 03-24-2022 Episodic Other connective tissue disease (1 source) Pain in left foot; Translations: [PAIN IN LEFT FOOT] Onset: 03-27-2022 Episodic Other diseases of kidney and ureters (18 sources) Unspecified disorder of kidney and ureter Onset: 11-27-2014 Episodic Other diseases of kidney and ureters (4 sources) Disorder of kidney and ureter, unspecified Onset: 11-27-2014 Episodic Other gastrointestinal disorders (1 source) Diarrhea, unspecified; Translations: [DIARRHEA UNSPECIFIED] Onset: 04-25-2022 Episodic Other non-traumatic joint disorders (4 sources) Pain in left knee; Translations: [PAIN IN LEFT KNEE] Onset: 11-19-2021 Episodic Residual codes; unclassified (1 source) Family history of malignant neoplasm of other organs or systems; Translations: [FAM HX MALIG NEOPLASM OTH ORGN/SYS] Onset: 12-26-2021 Episodic Spondylosis; intervertebral disc disorders; other back problems (17 sources) Spinal stenosis of lumbar region; Translations: [Spinal stenosis, lumbar region without neurogenic claudication] Onset: 04-06-2022 Episodic Unclassified (1 source) LOW BACK PAIN, UNSPECIFIED; Translations: [LOW BACK PAIN, UNSPECIFIED] Onset: 03-31-2022 Results Test Name Value Interpretation Reference Range Facility Progress Noteson 06-17-2023 Patient Resource Specialist Authentication Interface Message Text Patient was identified by name and date of . Lisa Huff RN Patient at risk for falls:No Falls Risk protocol implemented: No Normal The [employer] [facility] XR C-SPINE FLEX/EXT ONLY 2 V IEWSon 06-17-2023 XR C-SPINE FLEX/EXT ONLY 2 VIEWS EXAMINATION: XR C-SPINE FLEX/EXT ONLY 2 VIEWS 06/17/2023 10:40 AM CLINICAL HISTORY: laminoplasty ASSOCIATED DIAGNOSIS: Cervical spondylosis with myelopathy ORDERING PROVIDER: GERI VERGARA [employer]ISTS NOTE: COMPARISON: 04/01/2023 FINDINGS: There is evidence of hardware for hemilaminectomy extending from C4 C7. Narrowing of multiple disc spaces is noted from C4 through C7. Anterior and posterior osteophytes are noted. Slight anterolisthesis of C3 on C4 is noted. Slight retrolisthesis of C5 on C6 and C4 on C5 is noted. Generalized osteopenia is noted. Degenerative facet arthropathy. Slight anterolisthesis of C6 over C7 IMPRESSION: No pathologic motion. Considerable cervical spondylosis as discussed. No compression deformity. Fracture of spinous process of C6 and possibly C7 vertebral bodies are noted most likely postsurgical. MACRO: None Normal [facility] XR Cervical spine Lateral Vi ews W flexion and W extensionon 06-17-2023 EXAMINATION: XR C-SPINE FLEX/EXT ONLY 2 VIEWS 06/17/2023 10:40 AM CLINICAL HISTORY: laminoplasty ASSOCIATED DIAGNOSIS: Cervical spondylosis with myelopathy ORDERING PROVIDER: G[employer]I VERGARA [employer]CH[employer]ISTS NOTE: COMPARISON: 04/01/2023 FINDINGS: There is evidence of hardware for hemilaminectomy extending from C4 C7. Narrowing of multiple disc spaces is noted from C4 through C7. Anterior and posterior osteophytes are noted. Slight anterolisthesis of C3 on C4 is noted. Slight retrolisthesis of C5 on C6 and C4 on C5 is noted. Generalized osteopenia is noted. Degenerative facet arthropathy. Slight anterolisthesis of C6 over C7 IMPRESSION: No pathologic motion. Considerable cervical spondylosis as discussed. No compression deformity. Fracture of spinous process of C6 and possibly C7 vertebral bodies are noted most likely postsurgical. MACRO: None RADIOLOGY Edin Toney MD - 06/17/2023 EXAMINATION: XR C-SPINE FLEX/EXT ONLY 2 VIEWS 06/17/2023 10:40 AM CLINICAL HISTORY: laminoplasty ASSOCIATED DIAGNOSIS: Cervical spondylosis with myelopathy ORDERING PROVIDER: G[employer] VERGARA [employer] NOTE: COMPARISON: 04/01/2023 FINDINGS: There is evidence of hardware for hemilaminectomy extending from C4 C7. Narrowing of multiple disc spaces is noted from C4 through C7. Anterior and posterior osteophytes are noted. Slight anterolisthesis of C3 on C4 is noted. Slight retrolisthesis of C5 on C6 and C4 on C5 is noted. Generalized osteopenia is noted. Degenerative facet arthropathy. Slight anterolisthesis of C6 over C7 IMPRESSION: No pathologic motion. Considerable cervical spondylosis as discussed. No compression deformity. Fracture of spinous process of C6 and possibly C7 vertebral bodies are noted most likely postsurgical. MACRO: None [facility] Study observation (narrative) [facility] XR Cervical spine Lateral Vi ews W flexion and W extensionOrdered By: Edin Toney on 06-17-2023 [employer] Work Phone: Progress Noteson 06-16-2023 Patient Resource Specialist Authentication Interface Message Text DX: [id number] Posterior cervical laminoplasty, C4 to C7, with Globus Canopy laminoplasty system. LAST VISIT: [id number] Ruddy SIMON Ms Rubio returns today. Normal bowel habits. Denies fever/chills. PE: Incision C/D/I, at neuro baseline, deltoids intact. Justine removed from surgical incision, steri-strips applied. INV: Standing lateral flex-ex cervical xrays, no issues IMP: 72yo female s/p C4-C7 laminoplasty, doing well almost 3 months PLAN: I encouraged her to continue doing her exercises. I encouraged her to take the Flexeril 3 times a day if she has pain. I recommended heat, ice and simple modalities for her neck misery. I recommended she sleep in the soft collar if her neck still hurts at night. I will see her back in 3 months with standing lateral flexion-extension views of her cervical spine. Normal [facility] [facility] Telephone Encounteron 2022 Patient Resource Specialist Authentication Interface Message Text RN called pt. Pt answered. Pt wanted to know how long to do her neck exercises. RN answered her question, 2 five minutes sessions a day. RN went over the same post-operative teaching that was done at 04/22/23 post operative visit. Pt verbalized understanding and was taking notes both at that visit and during this phone call. Pt asked how to send messages in [employer]. RN let her know to make sure she is logged into her [email or web address] and to send messages to Dr Vergara and they will get to his RN. Pt agreeable. No further questions. Pt verbalized understanding. ----- Message from Judith Palm sent at 05/04/2023 12:15 PM EST ----- Regarding: clarification Needs clarification on her neck exercises. Please call. Normal [facility] [facility] Progress Noteson 04-22-2023 Patient Resource Specialist Authentication Interface Message Text Soft cervical collar dispensed to patient in clinic. Normal [facility] [employer] [facility] Patient Resource Specialist Authentication Interface Message Text Patient was identified by name and date of . Jose Guadalupe Fox RN Patient at risk for falls:Yes Falls Risk protocol implemented: Yes DX: [id number] Posterior cervical laminoplasty, C4 to C7, with Forward [employer] Canopy laminoplasty system. LAST VISIT: [facility] Ms Rubio returns today. Normal bowel habits. Denies fever/chills. PE: Incision C/D/I, at neuro baseline, deltoids intact. [place] removed from surgical incision, steri-strips applied. INV: no new. IMP: 72 y/o female s/p C4-C7 laminoplasty, doing well first post-op check. PLAN: Soft collar p.r.n., I taught her some exercises to do. She needs to be mindful of her bowels. Continue to work the hands as much as possible and walk a little bit farther today than yesterday. Dr Vergara will want to see her back in 8-10 weeks with standing lateral flexion extension views of the cervical spine. Normal [facility] [employer] [facility] Telephone Encounteron 2022 Patient Resource Specialist Authentication Interface Message Text RN called SNF back. Spoke with Beryl who had originally called. Advised pt's justine are to stay in place until follow up appt on 04/22/23. Pt ok to shower, mild soap and water can run over the incision. No vigorous scrubbing. Pat dry. Leave open to air or cover lightly with dry gauze and change daily. Beryl agreeable. No further questions. Beryl verbalized understanding. ----- Message from Maura Trotter sent at 04/08/2023 4:13 PM EST ----- Regarding: ? from [facility] Deacon [facility] [phone] Calling to question can she get a shower ? Hair washed ? Still has justine - Dressing off today Normal [facility] [facility] Care Plan Noteon 04-03-2023 Patient Resource Specialist Authentication Interface Message Text Problem: Routine Care: Goal: Patient care will be managed and maintained throughout hospital stay per unit specific routine care procedure Outcome: Progressing Problem: Acute Pain: Goal: Ability to identify pain intensity on a pain scale and rate it consistently will be achieved and maintained Outcome: Progressing Problem: Impaired Mobility: Goal: Ability to tolerate increased activity will improve and be maintained Outcome: Progressing Goal: Ability to maintain or regain baseline function will be acheived Outcome: Progressing Problem: Impaired Skin Integrity: Goal: Acheive wound healing without signs and symptoms of infection Outcome: Progressing Problem: VTE Prophylaxis: Goal: Will be free of DVT Outcome: Progressing Problem: Safety: Goal: Patient will remain free of falls during hospital stay Outcome: Progressing Goal: Free from injury during hospitalization Outcome: Progressing Problem: Discharge Planning: Goal: Discharge needs of the adult patient will be met Outcome: Progressing Normal [facility] [employer] [facility] Discharge Planning Noteon Patient Resource Specialist Authentication Interface Message Text Ms Banerjee will be discharging tomorrow to [facility] [place]. Due to distance, she was required to pay 483$ up front for transport. Her niece has agreed to drive her and will be picking her up tomorrow at 1pm. SNF agreeable and aware of pick uptime. CM will remain available to assist with discharge planning and needs as warranted. Eloisa URBINA, wrapper stitcher (8:30-4:00) Normal [facility] [facility] Patient Resource Specialist Authentication Interface Message Text CASE MANAGEMENT/SOCIAL WORK SNF DC NOTE: Pt has been cleared for transfer to SNF on Wednesday04.03.23 Pt will be transferred to [facility] via Johan Santoyo ([id number]) at 1pm Nursing report may be called to [phone] Support person notified: Patient/Family, team aware of above and agreeable. For discharge, please ensure the following is completed: ??? MD to place DC order, reconcile meds, and print narcotics to go with patient to SNF ??? [place] to print Discharge Summary, [place], Summary of Care, Narcotic Scripts, and Signature Page and place in a packet to be given to rail car driver If transport/discharge needs to be adjusted/cancelled, team (/RN) to cancel transport, update support person, and update receiving facility. Eloisa URBINA, wrapper stitcher [phone] (available 8:30-4:00) Normal [facility] [employer] [facility] [place] 04-02-2023 Patient Resource Specialist Authentication Interface Message Text Social Work/Case Management: Reason for placement: PT/OT Therapies Patient level of care required : Skilled Applicant's potential for returning to community: Convalescent stay:<30 days Prognosis: Good Rehab Potential: Improve Mental/Behavioral status:Alert, Oriented, Cooperative Affect: Calm Social Work Assessment Functional status prior to admission: independent Community agencies active with patient: none aware of Support system: family Capacity for independent living/terminal system operator plan:good Other hospital admissions within the past 60 days: no Other pertinent problems: na Normal [facility] Progress Noteson 04-02-2023 Patient Resource Specialist Authentication Interface Message Text CASE MANAGEMENT NOTE: CM aware of FOC placement for SNF via allscripts and has been ACCEPTED for placement pending pre certification to [facility] MD to place dc order to SNF CM to complete HENS CM to complete GR CM to arrange for [place] CM to notify patient and family Eloisa Pineda Professional Nursing Assistant [phone] Normal [facility] Anesthesia Postprocedure Nya luationon 04-01-2023 Patient Resource Specialist Authentication Interface Message Text Anesthesia Postoperative Assessment: Vital Signs (most recent): BP 118/95 (BP Location: left arm) Pulse 83 Temp 36.9 ???C (98.4 ???F) (Oral) Resp 15 Ht 5' 2 (1.575 m) Wt 159 lb (72.1 kg) SpO2 96% BMI 29.08 kg/m??? Anesthesia Post Evaluation Post-procedure exam normal. Body temperature, hydration status, PONV and pain evaluated and addressed. Cardiopulmonary status stable ANESTHESIA NOTABLE EVENTS: No notable events documented. Normal [facility] Care Plan Noteon 04-01-2023 Patient Resource Specialist Authentication Interface Message Text Problem: Routine Care: Goal: Patient care will be managed and maintained throughout hospital stay per unit specific routine care procedure Outcome: Progressing Problem: Acute Pain: Goal: Ability to identify pain intensity on a pain scale and rate it consistently will be achieved and maintained Outcome: Progressing Problem: Impaired Mobility: Goal: Ability to tolerate increased activity will improve and be maintained Outcome: Progressing Goal: Ability to maintain or regain baseline function will be acheived Outcome: Progressing Problem: Impaired Skin Integrity: Goal: Acheive wound healing without signs and symptoms of infection Outcome: Progressing Problem: VTE Prophylaxis: Goal: Will be free of DVT Outcome: Progressing Problem: Safety: Goal: Patient will remain free of falls during hospital stay Outcome: Progressing Goal: Free from injury during hospitalization Outcome: Progressing Problem: Discharge Planning: Goal: Discharge needs of the adult patient will be met Outcome: Progressing Normal [facility] Anesthesia Preprocedure Eval uationon 11-08-2023 Patient Resource Specialist Authentication Interface Message Text ASA: 3 No history of anesthetic complications NPO status: Greater than 8 hours Past Medical History and Review of Systems Pulmonary - negative ROS Dental - negative ROS Endo (+) diabetes mellitus, hypothyroidism, Neuro/Psych - negative ROS Cardiovascular (+) hypertension, Surgical risk: intermediate; Cardiac condition: stable, ECG reviewed No previous ECG available GI/Hepatic/Renal - negative ROS (+) liver disease, Heme/Other (+) anemia, Other ROS: Bladder stimulator right upper gluteus. Turned off by pt. PBC. Physical Exam Airway Mallampati: II TM distance: Adequate Micrognathia: Not present Jaw opening: Adequate Neck flexion: Adequate Dental Pulmonary - pulmonary exam normal Cardiovascular - cardiovascular exam normal Neuro - neurological exam normal Plan Anesthesia plan: general; (ETT) Anesthesia risks / alternatives discussed pre-op Questions answered / anesthesia plan accepted Past medical history, surgical history, allergies, and medications reviewed. Pertinent laboratory tests, EKG, imaging, and consults reviewed and I have personally seen and evaluated the patient, repeating morales portions of the history and physical examination. Attestation: Anesthesia options were discussed with the patient and/or legal event marketing representative. The risks, benefits and alternatives were reviewed. Questions regarding anesthesia were answered. Patient and/or legal event marketing representative knows such anesthetics and procedures may be performed by Resident physicians, Certified Anesthesiologist Assistants, or Certified Nurse Anesthetists under the supervision of a physician. The patient /or the patient's legal event marketing representative agree with the plan for anesthesia. Normal [facility] Anesthesia Transfer Of Careo n 03-31-2023 Patient Resource Specialist Authentication Interface Message Text Patient taken to PACU. Patient was drowsy, comfortable and stable on arrival. Anesthesia Transfer of Care Note Past Medical History: No past medical history on file. Sleep Apnea/Positive STOP-BANG: No Problem List: Patient Active Problem List: Cervical spondylosis with myelopathy [M47.12] High blood cholesterol [E78.00] Essential hypertension [I10] OAB (overactive bladder) [N32.81] Other specified hypothyroidism [E03.8] Type 2 diabetes mellitus without complication, without long-term current use of insulin (HCC) [E11.9] Past Surgical History: There is no previous surgical history on file. Allergies: Morphine, Nickel, Penicillins, and Sulfites Basic Operating Room Facts: Surgeon(s): Geri Vergara MD Anesthesiologist: Todd Tan MD CAA: Moe Macario CAA MECHANICAL MANUFACTURING ENGINEER: Norbert Parks APRN-RAMON Anesthesia Student: Archana Rivas LAMINOPLASTY, POSTERIOR CERVICAL C4-7 (Spine Cervical) Intraoperative Events: No acute event ASA: 3 EBL: 75 mL Urine Not documented Lactated Ringers and NaCl 0.9%: Fluid Totals (Filter: LR and NaCl 0.9% Medications Shown) Medication Calculated Total Lactated Ringers 700 mL / 1 bag Lactated Ringers 800 mL / 1 bag Cell Saver: Not documented Blood Volume Values: Blood Products None MTP Blood: MTP PRBC: Not documented MTP FFP: Not documented MTP PLT: Not documented MTP Cryo: Not documented MTP Whole Blood: Not documented Current Vasoactive Medications: {Vasoactive Medications: None Lines, Drains, Airways Peripheral IV Access: 03/31/23936 18 gauge Anterior;Left Forearm (Active) Site Assessment WNL;Dressing intact 03/31/23936 Infusion Status Port #1 Infusing;Positive blood return;Patent 03/31/23936 Peripheral IV Access: 03/31/23 111 18 gauge Right Hand (Active) Arterial Line: 03/31/23 Left (Active) Airway Insertion Details [REMOVED] Advanced Airway: ETT, Oral;Cuffed #7 (Removed) 03/31/231108 Pre-Oxygenation/ Induction: Mask Rapid Sequence Induction?: Mask Ventilation: Easy Blade size: S3 Visualization: Airway Type: ETT, Oral;Cuffed Airway Size: #7 Post Insertion Assessment: Confirmation: Equal bilateral breath sounds, CO2 confirmed # Attempts >1: Special Equipment: Glidescope;Bite block placed Present on Admission?: Previously Removed / Not Present: Removal Reason: Not Removed at Discharge: Removed 03/31/23 130 Location (cm) 20 03/31/23 110 Measured from: Lips 03/31/23 110 Secured via: Taped 03/31/231108 [REMOVED] Advanced Airway: (Removed) 03/31/231108 Pre-Oxygenation/ Induction: Rapid Sequence Induction?: Mask Ventilation: Blade size: Visualization: Airway Type: Airway Size: Post Insertion Assessment: Confirmation: # Attempts >1: Special Equipment: Present on Admission?: Previously Removed / Not Present: Removal Reason: Not Removed at Discharge: Removed 03/31/23 130 All non-working IVs have been removed: Yes Laboratory Data: CBC (last 3 years, up to 5 values) WBC RBC Hgb Hct MCV RDW Plt 03/23/23 1034 4.0 3.73 11.1 33.8 91 13.6 109 Basic Metabolic Panel Na K Cl CO2 Gap Glu BUN Cr Ca 03/23/23 1034 140 4.2 104 26 14 187 40 1.31 9.9 Basic Metabolic Panel None INR (no units) Date Value 03/23/2023 1.13 (H) No result for BNP LFT's (last 3 years, up to 5 values) T Prot Albumin D Bili T Bili Alk Phos ALT AST 03/23/23 1034 6.2 3.9 0.20 0.7 138 33 39 Arterial Blood Gases None Hand off Completed: Yes 1. The patient was identified. 2. Pertinent medical history was relayed. 3. A brief discussion was had about any pertinent surgical/ procedural issues. 4. Intraoperative/ anesthetic management issue and concerns were discussed. 5. Plans for the early post-operative period relayed. 6. An opportunity for questions and acknowledgment of understanding of the report was received. JAMES Flores Normal [facility] Brief Operative Noteon 03-31 Patient Resource Specialist Authentication Interface Message Text Brief Operative Note MAIN OR 01 Massimo Banerjee 72 year old female Surgical Contact Serial Number: [id number] Preoperative Diagnosis: Cervical spondylosis with myelopathy [M47.12] Postoperative Diagnosis: * Cervical spondylosis with myelopathy [M47.12] Procedures: No data filed C4-C7 laminoplasty Surgeon(s): Surgeon(s): Geri Vergara MD Staff: Nurse: Dea Santana RN Scrub: Mathew Sethi, AUR[place]A; Sanjiv Arriaga Health Policy Nurse Nurse: Mathew Sethi, [place]UR[place]A; Rochelle Fuentes RN Label Machine Operator: Marry Hector Spinal Cord Monitor: Raz Metz Goat Driver: Tammy Ridley MD Anesthesia: General Anesthesiologist: Todd Tan MD CAA: Moe Macario CAA MECHANICAL MANUFACTURING ENGINEER: Norbert Parks APRN-MECHANICAL MANUFACTURING ENGINEER Anesthesia Student: Archana Rivas Specimen(s): * No specimens in log * Estimated Blood Loss: 75cc Lines/Drains: Peripheral IV Access: 03/31/23936 18 gauge Anterior;Left Forearm (Active) Site Assessment WNL;Dressing intact 03/31/23936 Infusion Status Port #1 Infusing;Positive blood return;Patent 03/31/23936 Peripheral IV Access: 03/31/23 1112 18 gauge Right Hand (Active) Surgical Drain Hemovac / Davol # 1 10 fr Posterior (Active) Temporarily Retained Foreign Object: No Location: N/a Object: N/a Anticipated removal date: N/a Findings: Adequate decompression Complications: None Status at end of surgery: Stable Activity: WBAT no heavy lifting/bending/twist ing Surgical wound class: Yes, wound was clean. Patient Class: Surgery Admit. Is this a patient scheduled as an outpatient that needs to be admitted as an inpatient? No Dr. Vergara was present in the OR for the critical portion of the procedure and procedure sign-out. Signed by Tammy Ridley MD 03/31/2023 1:09 PM Normal [facility] Care Plan Noteon 03-31-2023 Patient Resource Specialist Authentication Interface Message Text Problem: Routine Care: Goal: Patient care will be managed and maintained throughout hospital stay per unit specific routine care procedure Outcome: Progressing Problem: Acute Pain: Goal: Ability to identify pain intensity on a pain scale and rate it consistently will be achieved and maintained Outcome: Progressing Problem: Impaired Mobility: Goal: Ability to tolerate increased activity will improve and be maintained Outcome: Progressing Goal: Ability to maintain or regain baseline function will be acheived Outcome: Progressing Problem: Impaired Skin Integrity: Goal: Acheive wound healing without signs and symptoms of infection Outcome: Progressing Problem: VTE Prophylaxis: Goal: Will be free of DVT Outcome: Progressing Problem: Safety: Goal: Patient will remain free of falls during hospital stay Outcome: Progressing Goal: Free from injury during hospitalization Outcome: Progressing Problem: Discharge Planning: Goal: Discharge needs of the adult patient will be met Outcome: Progressing Normal [facility] GLUCOSE, FINGERSTICK-IN OFFI CEon 03-31-2023 Glucose [Mass/Vol] 126 mg/dL High 80-116 [facility] Comment on above: Result Comment: Cedrick zavaleta RN, APN, MD Performed By: #### [id number] ####NURSING GLUCOSE [id number] [facility] [place], [address] Glucose [Mass/Vol] 136 mg/dL High 80-116 [facility] Comment on above: Performed By: #### [id number] #### NURSING GLUCOSE PROGRAM [address] [place], [address] OP Noteon 03-31-2023 Patient Resource Specialist Authentication Interface Message Text Name: MASSIMO BANERJEE MR#: [id number] ENC#: [id number] Date of Procedure: 03/31/2023 ATTENDING SURGEON: Geri Vergara MD FRETTED INSTRUMENT INSPECTOR: Tammy Ridley MD PREOPERATIVE DIAGNOSIS: Cervical spondylosis with myelopathy. POSTOPERATIVE DIAGNOSIS: Cervical spondylosis with myelopathy. PROCEDURE: Posterior cervical laminoplasty, C4 to C7, with Globus Canopy laminoplasty system. ANESTHESIA: General. ESTIMATED BLOOD LOSS: 50 cc. OPERATIVE INDICATIONS: The patient is a 72-year-old female, who is [facility] for failed conservative treatment of cervical myelopathy. The patient was found to be significantly symptomatic from her multiple level spinal cord compression in her neck with some numbness and tingling in her hands and a lot of low back symptoms. Clumsiness in her gait also. Risks, benefits, and alternatives of operative versus nonoperative treatment were discussed with the patient and the patient's significant others, and she wished to proceed with surgery. OPERATIVE PROCEDURE: After proper consent and identification, the patient was taken to OR1. General endotracheal anesthesia was administered. Antibiotics were given prophylactically. The patient was rolled prone on a standard table. The head was placed in neutral alignment in an anesthesia pillow. The back of the neck was prepped and draped in a normal sterile fashion. After a time-out by Anesthesia, Nursing, and Surgery, a midline incision was made over the posterior neck with a 10-blade scalpel. Sharp dissection was taken down to the ligamentum nuchae. The paraspinal muscles were elevated off the bottom of C3 down the top of T1 bilaterally with Bovie electrocautery and a Robert elevator. One of the apparent facet joints was marked with a Milan 4 and a lateral cervical spine x-ray was taken. Once our position was justified, attention was drawn to the decompression. The spinous process of C7 was cut with angled bone cutter. A trough was decorticated at the junction of the lamina and lateral masses through and through on the left side and just the dorsal cortex on the right side with a 3 mm matchstick bur. Under maintenance of mean arterial pressure of 85 mmHg, we elevated the lamina from C4 to C7 without difficulty. We then placed Globus Canopy titanium laminoplasty plates at every level 7 mm. They were secured to the lamina with 4 mm screws and the lateral masses with 6 and 8 mm screws. Excellent purchase was obtained. Our final construct was justified by multiple C-arm views. The wound was irrigated copiously and attention was drawn to wound closure. The wound was closed in layers over vancomycin powder and a 10-Palauan round Hemovac drain, simple interrupted #2 Vicryl sutures for the ligamentum nuchae, 2-0 simple interrupted buried Vicryl sutures for the subcutaneous tissue, and justine for the skin edges. Sterile dressing was applied. Hemovac drain was sewn to the skin with a 3-0 nylon stitch, placed under suction and was functioning properly at the end of the case. The patient was then rolled supine on her hospital bed, placed in a soft cervical collar, awakened, extubated, taken to PACU. There were no complications. The patient tolerated the procedure well. I was present from the time the patient came into the room until the wounds were closed. DISPOSITION: The patient will be allowed out of bed as tolerated on the day of her surgery. She will be monitored closely for any hemodynamic instability. She will receive a standing AP and lateral cervical spine x-ray in her collar on postoperative day 1. MD FRANCISCO Wellington/Susanna/Dict: 04/01/2023 09:01:04 TRANS: 04/01/2023 09:13:01 JOB: [id number] DictJob#: [id number] Normal [facility] Gastroenterology Office/Clin ic Noteon 03-25-2023 Gastroenterology Office/Clinic Note Chief Complaint f/u History of Present Illness Here for follow up Last seen 2022 Here for follow up Last seen 03/2022 Here for follow up Last seen 10/01/2021 Here for follow up Last seen 07/08/2021 Here for follow up Last seen 04/08/2021 Here for follow up Last seen 11/07/2020 Here for follow up Seeing us for PBC Has been on Ocaliva as well as Mihai Last seen 08/05/2020 Massimo is a 69 year old female here to establish care Has been seeing Dr Greco for almost 20 years due to PBC Seems like 20 years ago had routine blood work performed Her ALP levels were 308 with an increased AMA At that point she was started on Mihai and the levels improved dramatically In addition she did undergo a liver biopsy that was consistent with non specific salinas-portal inflammation Over the past 15 years she had done well Recently her ALP level has increased and Dr Greco placed her on Ocaliva 10 mg in addition to her Ursodiol In addition she is being seen at [facility] with regard to an opinion Feels well No complaints No ascites No jaundice No signs of bleeding No encephalopathy Hx of hypothyroidism for which she is on synthroid and as per the patient her disease is well controlled Denies new medications Recent RUQ US 2020 -Fibrosis -Mild fatty liver -Gallstones 06/2020 T richard 0.1 0.4 0.5 0.3 Alb 3.7 3.5 3.5 3.7 4.5 3.4 ALT 64 60 73 42 30 36 AST 42 47 41 27 26 22 ALP 209 197 212 162 144 103 Cr 1.15 1.03 Hgb 12 12.9 PLT 163 198 Liver biopsy 2003 mild periportal chronic inflammation and focal fatty change Imaging MRCP 2002 No cirrhosis 6 mm pancreatic cystic lesion within the uncinate process Renal cyst CT Abd/pelvis 2017 - gallstones - cirrhosis with steatosis Colonoscopy 2016 - Diverticulosis - no colonic polyps Colonoscopy 2016 - Hemorrhoids - Diverticulosis - 1.7 cm sessile polyp - removed - villous adenoma Colonoscopy 2002 - normal colon - normal ileum [1] Interval History 11/08/2020 Blood results from 08/15/2020 ANDREE 1:640 HCV AB - Anti LKM - INR 1.00 WBC 7.9 Hgb 12 plT 154 T richard 0.3 TP 6.8 NA 143 BUN 25 Cr 1.17 ALT 83 AST 50 ALP 105 ALB 3.3 AFP 3.2 A1AT 143 Ceruloplasmin 25.6 Hep A AB - AMA + ( 119) HB sAB - HCV - [2] US with elastography performed at [facility] which is not here for review Most recent LFT 10/15/2020 ALK 180 AST 31 ALT 41 Alb 3.5 total Richard 0.5 She has no complaints Her concern is with regard to the recent FDA warning with regard to the use of Ocaliva in patients with PBC with advanced cirrhosis [1] Interval history 04/08/2021 Overall doing well Recent US of liver (03/31/2021 10:45 EST US Liver w/ Duplex + Elastography) IMPRESSION: 1. Hepatic steatosis. 2. Cirrhosis. 3. Liver fibrosis staging mild to moderate (F2-F3). 4. Cholelithiasis. 5. Unremarkable liver Dopplers. [2] Recent blood work Hb 12.3 INR 1.0 ALK 151 AST 62 ALT 61 Cr 1.15 Na 138 Total bilirubin 0.6 MELD 8 Only on Ursodiol Off of the Ocaliva No ascites No jaundice No encephalopathy No signs of bleeding Doing well AFP 3.1 [1] Interval GI history July 07, 2021 Overall doing quite well Recent endoscopy was negative for any esophageal or gastric varices or portal hypertensive gastropathy. EGD Esophagus - no varices - no mass - no stenosis - GEJ 40 cm Stomach - no varices - multiple superficial pre-pyloric erosions - bx - no PHG Duodenum - no varices - normal - random bx taken f/u bx OTC PPI f/u in office in one week [2] Diagnosis (Verified) Part A: Duodenum, biopsies: Normal duodenal mucosa. Part B: Stomach, biopsies: Mild inactive chronic gastritis. [3] Recent blood work demonstrated hemoglobin of 12, platelets of 145, total bilirubin of 0.4, Sodium of 140, creatinine of 1.15, ALT of 57, AST of 45, alk phos of 136, hemoglobin A1c is 6.1% INR 1.02 MELD 8 [1] Interval GI history October 01, 2021 Overall is doing quite well. She continues the ursodiol 500 mg twice daily Recent blood work demonstrates hemoglobin slight decreased 11.8 with an MCV of 88, INR 1.0, sodium 141, alkaline phosphatase 148, ALT 39, AST 38. Recent sonogram of the liver was consistent with probable cirrhosis, F0 to F1 fibrosis. No evidence of ascites. (09/08/2021 10:58 EDT US Liver + Elastography) IMPRESSION: 1. Probable cirrhosis. 2. Liver fibrosis staging normal to mild (F0-F1). 3. Cholelithiasis. 4. Likely benign right renal cyst. [2] [1] Interval GI History 04/21/2022 Since her last office visit Repeat colonoscopy colonoscopy - minimal int hemorrhoids - scattered diverticula - no rectal varices - hypertrophic anal papilla - 2 mm cecal polyp - removed with cold forceps bx - 4 mm ascending colon polyp - removed with cold forceps bx f/u bx Repeat in 5 years high fiber diet anusol prn [2] (more content not included)... Normal [facility] ABO RH TYPEon 03-23-2023 ABO and Rh group Nom (Bld) Blood group A Rh(D) positive Normal [facility] Comment on above: Performed By: #### Frank NOLAN #### [facility] [address] [place] [address], BASIC METABOLIC PANELon - Anion gap [Moles/Vol] 14 mmol/L Normal 10-20 [facility] Comment on above: Performed By: #### Mirta AHN, CH8 #### [facility] [address] [place] [address], Calcium [Mass/Vol] 9.9 mg/dL Normal 8.4-10.4 [facility] Comment on above: Performed By: #### Mirta AHN, 8 #### [facility] [address] [place] [address], Chloride [Moles/Vol] 104 mmol/L Normal 97-111 [facility] Comment on above: Performed By: #### Mirta AHN, CH8 #### [facility] [address] [place] [address], CO2 [Moles/Vol] 26 mmol/L Normal 21-30 [facility] Comment on above: Performed By: #### Mirta AHN, CH8 #### [facility] [address] [place] [address], Creatinine [Mass/Vol] 1.31 mg/dL High 0.50-1.10 [facility] Comment on above: Performed By: #### Mirta AHN, CH8 #### [facility] [address] [place] [address], ESTIMATED GFR (CKD-EPI) 43 mL/min/1.73sqm Low >=60 [facility] Comment on above: Result Comment: 2020 CKD EPI Equation using Creatinine without Race Comment: Estimated glomerular filtration rate (eGFR) is calculated without a race coefficient. Values should be interpreted in the context of the patient's full clinical presentation. Reference: 1. Bill Maurice, Sharona M, Bob CALDERON, et al.. A Unifying Approach for GFR Estimation: Recommendations of the NKF-ASN Task Force on Reassessing the Inclusion of Race in Diagnosing Kidney Disease. [place] Journal of Kidney Diseases 2021;79(2):268-88.e1. 2. N Engl J Med 1 Vol. 385 Issue 19 Pages 9920-3913 Performed By: #### Mirta AHN CH8 #### [facility] [address] [place] [address], Glucose [Mass/Vol] 187 mg/dL High 80-116 [facility] Comment on above: Performed By: #### Mirta AHN CH8 #### [facility] [address] [place] [address], Potassium [Moles/Vol] 4.2 mmol/L Normal 3.3-5.3 [facility] Comment on above: Performed By: #### Mirta AHN CH8 #### [facility] [address] [place] [address], Sodium [Moles/Vol] 140 mmol/L Normal 135-148 [facility] Comment on above: Performed By: #### Mirta AHN CH8 #### [facility] [address] [place] [address], Urea nitrogen [Mass/Vol] 40 mg/dL High 8-22 [facility] Comment on above: Performed By: #### Mirta AHN CH8 #### [facility] [address] [place] [address], Basic metabolic 2000 panelon 03-23-2023 Anion gap [Moles/Vol] 14 mmol/L 10 - 20 [facility] Calcium [Mass/Vol] 9.9 mg/dL 8.4 - 10. 4 mg/dL [facility] Chloride [Moles/Vol] 104 mmol/L 97 - 11 1 mmol/L [facility] CO2 [Moles/Vol] 26 mmol/L 21 - 30 mmol/L [facility] Creatinine [Mass/Vol] 1.31 mg/dL High 0.50 - 1.10 mg/dL [facility] GFR/1.73 sq M.predicted MDRD (S/P/Bld) [Vol rate/Area] 43 mL/min/{1.73_m2} Low - PINF [facility] Comment on above: 2020 CKD EPI Equatio n using Creatinine without Race Comment: Estimated glomerular filtration rate (eGFR) is calculated without a race coefficient. Values should be interpreted in the context of the patient's full clinical presentation. Reference: 1. Bill C, Sharona M, Bob DC, et al.. A Unifying Approach for GFR Estimation: Recommendations of the NKF-ASN Task Force on Reassessing the Inclusion of Race in Diagnosing Kidney Disease. [place] Journal of Kidney Diseases 2021;79(2):268-88.e1. 2. N Engl J Med 2020 Vol. 385 Issue 19 Pages [id number] Glucose [Mass/Vol] 187 mg/dL High 80 - 116 mg/dL [facility] Interpretation and review of laboratory results Abnormal [facility] Potassium [Moles/Vol] 4.2 mmol/L 3.3 - 5.3 mmol/L [facility] Sodium [Moles/Vol] 140 mmol/L 135 - 148 mmol/L [facility] Urea nitrogen [Mass/Vol] 40 mg/dL High 8 - 22 mg/dL [facility] CBC WITH DIFFERENTIALon 10-3 Basophils (Bld) [#/Vol] 0.03 10*3/uL Normal 0.00-0.20 [facility] Comment on above: Performed By: #### C BCDSAT ####S PATHOLOGY [id number] [place], [place], Basophils/100 WBC (Bld) 0.7 % Normal <=1.9 [facility] Comment on above: Performed By: #### C BCDSAT ####S PATHOLOGY [id number] [place], [place], Eosinophils (Bld) [#/Vol] 0.15 10*3/uL Normal 0.00-0.70 [facility] Comment on above: Performed By: #### C BCDSAT ####[facility] PATHOLOGY [id number] [place], [place], Eosinophils/100 WBC (Bld) 3.7 % Normal 0.1-4.0 [facility] Comment on above: Performed By: #### C BCDSAT ####[facility] PATHOLOGY [id number] [place], [place], Erythrocyte distribution width (RBC) [Ratio] 13.6 % Normal 11.5-14.5 [facility] Comment on above: Performed By: #### C BCDSAT ####[facility] PATHOLOGY [id number] [place], [place], Hematocrit (Bld) [Volume fraction] 33.8 % Low 36.0-46.0 [facility] Comment on above: Performed By: #### C BCDSAT ####[facility] PATHOLOGY [id number] [place], [place], Hemoglobin (Bld) [Mass/Vol] 11.1 g/dL Low 12.0-15.0 [facility] Comment on above: Performed By: #### C BCDSAT ####[facility] PATHOLOGY [id number] [place], [place], Lymphocytes (Bld) [#/Vol] 0.74 10*3/uL Low 1.00-4.80 [facility] Comment on above: Performed By: #### C BCDSAT ####[facility] PATHOLOGY [id number] [place], [place], Lymphocytes/100 WBC (Bld) 18.3 % Low 24.0-44.0 [facility] System Comment on above: Performed By: #### C BCDSAT ####[facility] PATHOLOGY [id number] [place], [place], MCH (RBC) [Entitic mass] 29.8 pg Normal 26.0-34.0 [facility] System Comment on above: Performed By: #### C BCDSAT ####[facility] PATHOLOGY [id number] [place], [place], MCHC (RBC) [Mass/Vol] 32.9 g/dL Normal 32.0-35.9 [facility] System Comment on above: Performed By: #### C BCDSAT ####[facility] PATHOLOGY [id number] [place], [place], MCV (RBC) [Entitic vol] 91 fL Normal 80-100 [facility] System Comment on above: Performed By: #### C BCDSAT ####[facility] PATHOLOGY [id number] [place], [place], Monocytes (Bld) [#/Vol] 0.34 10*3/uL Normal 0.20-1.00 [facility] System Comment on above: Performed By: #### C BCDSAT ####[facility] PATHOLOGY [id number] [place], [place], Monocytes/100 WBC (Bld) 8.4 % Normal 2.0-11.0 [facility] System Comment on above: Performed By: #### C BCDSAT ####[facility] PATHOLOGY [id number] [place], [place], Neutrophils (Bld) [#/Vol] 2.79 10*3/uL Normal 1.50-8.00 [facility] System Comment on above: Performed By: #### C BCDSAT ####[facility] PATHOLOGY [id number] [place] [address], Neutrophils/100 WBC (Bld) 68.9 % Normal 31.0-76.0 [facility] System Comment on above: Performed By: #### C BCDSAT ####[facility] PATHOLOGY [id number] [place], [place], Platelet mean volume (Bld) [Entitic vol] 9.8 fL Normal 7.5-11.2 [facility] System Comment on above: Performed By: #### C BCDSAT ####S PATHOLOGY [id number] [place], [place], Platelets (Bld) [#/Vol] 109 10*3/uL Low 150-400 [facility] System Comment on above: Performed By: #### C BCDSAT ####S PATHOLOGY [id number] [place], [place], RBC (Bld) [#/Vol] 3.73 10*6/uL Low 4.00-5.20 [facility] [employer] [facility] Comment on above: Performed By: #### C BCDSAT ####[facility] [id number] [place], [place], WBC (Bld) [#/Vol] 4.0 10*3/uL Low 4.5-11.5 [facility] Comment on above: Performed By: #### C BCDSAT ####[facility] [id number] [place], [place], CT C-SPINE W/O CONTRASTon CT C-SPINE W/O CONTRAST EXAMINATION: CT C-SPINE W/O CONTRAST 03/23/2023 08:32 AM CLINICAL HISTORY: Neck pain, 6 weeks or more; X-ray C-spine done ASSOCIATED DIAGNOSIS: Cervical spondylosis with myelopathy ORDERING PROVIDER: [employer] NOTE: COMPARISON: None TECHNIQUE: Thin isotropic axial images were obtained from the skull base to the upper thoracic spine without intravenous contrast. 2D sagittal and coronal reconstructions were obtained from the axial data. FINDINGS: Counting reference: Craniocervical junction. Anatomic variants: None. Alignment: Degenerative reversal of usual cervical lordosis centered at C4-5. Vertebrae: No evidence of prior fracture or destructive osseous lesion. Advanced multilevel degenerative disc space narrowing with endplate spurring greatest at C4-5 and C5-6. Canal and foramina: Unless otherwise specified, spinal canal stenosis is due to posterior disc osteophyte complexes/endplate spurring, and neural foraminal stenosis is due to facet hypertrophy and uncovertebral spurring. No ossification of posterior longitudinal ligament. C2-C3: Mild spinal canal stenosis with ventral cord indentation eccentric to the left due to protrusion. No significant neural foraminal stenosis. C3-C4: Mild spinal canal stenosis and ventral cord abutment on the left. No significant right neural foraminal stenosis. Mild left neural foraminal stenosis. C4-C5: Moderate eccentric spinal canal stenosis with ventral cord flattening on the left. Mild right and moderate left neural foraminal stenoses. C5-C6: Moderate eccentric spinal canal stenosis with ventral cord flattening on the left. Mild right and severe left neural foraminal stenoses. C6-C7: Moderate spinal canal stenosis and ventral cord indentation. Moderate right and severe left neural foraminal stenoses. C7-T1: No significant spinal canal or neural foraminal stenosis. Soft Tissues: No dorsal paraspinous, paravertebral, or prevertebral fluid collection. Atheromatous calcifications of the carotid bifurcations. No mass or focal consolidation in the included upper lungs. IMPRESSION: Advanced multilevel cervical degenerative changes with moderate eccentric spinal canal stenoses and ventral cord flattening at C4-5 through C6-7. Scattered moderate and severe neural foraminal stenoses. MACRO: None Normal The [facility] CT Cervical spine WO contras tOrdered By: Alexandra Neri on 03-23-2023 CT DLP 324.15 (mGy.cm) [employer] Work Phone: CT Series Topogram,Topogram,C SPINE WO [employer] Work Phone: CTDI VOL 0.07 (mGy),0.08 (mGy),15.96 (mGy) [employer] Work Phone: PHANTOM TYPE IEC Body Dosimetry Phantom,IEC Body Dosimetry Phantom,IEC Body Dosimetry Phantom [employer] Work Phone: [employer] Work Phone: CT Cervical spine WO contras ton 03-23-2023 EXAMINATION: CT C-SPINE W/O CONTRAST 03/23/2023 08:32 AM CLINICAL HISTORY: Neck pain, 6 weeks or more; X-ray C-spine done ASSOCIATED DIAGNOSIS: Cervical spondylosis with myelopathy ORDERING PROVIDER: [employer] NOTE: COMPARISON: None TECHNIQUE: Thin isotropic axial images were obtained from the skull base to the upper thoracic spine without intravenous contrast. 2D sagittal and coronal reconstructions were obtained from the axial data. FINDINGS: Counting reference: Craniocervical junction. Anatomic variants: None. Alignment: Degenerative reversal of usual cervical lordosis centered at C4-5. Vertebrae: No evidence of prior fracture or destructive osseous lesion. Advanced multilevel degenerative disc space narrowing with endplate spurring greatest at C4-5 and C5-6. Canal and foramina: Unless otherwise specified, spinal canal stenosis is due to posterior disc osteophyte complexes/endplate spurring, and neural foraminal stenosis is due to facet hypertrophy and uncovertebral spurring. No ossification of posterior longitudinal ligament. C2-C3: Mild spinal canal stenosis with ventral cord indentation eccentric to the left due to protrusion. No significant neural foraminal stenosis. C3-C4: Mild spinal canal stenosis and ventral cord abutment on the left. No significant right neural foraminal stenosis. Mild left neural foraminal stenosis. C4-C5: Moderate eccentric spinal canal stenosis with ventral cord flattening on the left. Mild right and moderate left neural foraminal stenoses. C5-C6: Moderate eccentric spinal canal stenosis with ventral cord flattening on the left. Mild right and severe left neural foraminal stenoses. C6-C7: Moderate spinal canal stenosis and ventral cord indentation. Moderate right and severe left neural foraminal stenoses. C7-T1: No significant spinal canal or neural foraminal stenosis. Soft Tissues: No dorsal paraspinous, paravertebral, or prevertebral fluid collection. Atheromatous calcifications of the carotid bifurcations. No mass or focal consolidation in the included upper lungs. IMPRESSION: Advanced multilevel cervical degenerative changes with moderate eccentric spinal canal stenoses and ventral cord flattening at C4-5 through C6-7. Scattered moderate and severe neural foraminal stenoses. MACRO: None RADIOLOGY Alexandra Neri MD - 03/23/2023 EXAMINATION: CT C-SPINE W/O CONTRAST 03/23/2023 08:32 AM CLINICAL HISTORY: Neck pain, 6 weeks or more; X-ray C-spine done ASSOCIATED DIAGNOSIS: Cervical spondylosis with myelopathy ORDERING PROVIDER: [employer] NOTE: COMPARISON: None TECHNIQUE: Thin isotropic axial images were obtained from the skull base to the upper thoracic spine without intravenous contrast. 2D sagittal and coronal reconstructions were obtained from the axial data. FINDINGS: Counting reference: Craniocervical junction. Anatomic variants: None. Alignment: Degenerative reversal of usual cervical lordosis centered at C4-5. Vertebrae: No evidence of prior fracture or destructive osseous lesion. Advanced multilevel degenerative disc space narrowing with endplate spurring greatest at C4-5 and C5-6. Canal and foramina: Unless otherwise specified, spinal canal stenosis is due to posterior disc osteophyte complexes/endplate spurring, and neural foraminal stenosis is due to facet hypertrophy and uncovertebral spurring. No ossification of posterior longitudinal ligament. C2-C3: Mild spinal canal stenosis with ventral cord indentation eccentric to the left due to protrusion. No significant neural foraminal stenosis. C3-C4: Mild spinal canal stenosis and ventral cord abutment on the left. No significant right neural foraminal stenosis. Mild left neural foraminal stenosis. C4-C5: Moderate eccentric spinal canal stenosis with ventral cord flattening on the left. Mild right and moderate left neural foraminal stenoses. C5-C6: Moderate eccentric spinal canal stenosis with ventral cord flattening on the left. Mild right and severe left neural foraminal stenoses. C6-C7: Moderate spinal canal stenosis and ventral cord indentation. Moderate right and severe left neural foraminal stenoses. C7-T1: No significant spinal canal or neural foraminal stenosis. Soft Tissues: No dorsal paraspinous, paravertebral, or prevertebral fluid collection. Atheromatous calcifications of the carotid bifurcations. No mass or focal consolidation in the included upper lungs. IMPRESSION: Advanced multilevel cervical degenerative changes with moderate eccentric spinal canal stenoses and ventral cord flattening at C4-5 through C6-7. Scattered moderate and severe neural foraminal stenoses. MACRO: None [facility] Radiology Study observation (narrative) [facility] EKG 12 LEAD - PERFORMon 02-23 Diagnosis Normal sinus rhythm Nonspecific ST abnormality Abnormal ECG No previous ECGs available Confirmed by BREN AUSTIN ([id number]) on 03/23/2023 6:39:31 PM [facility] P wave At[facility] by EKG 77 BPM [facility] P wave axis 73 degrees [facility] P-R Interval 126 ms [facility] Q-T interval 372 ms [facility] Q-T interval corrected 420 ms [facility] QRS axis 72 degrees [facility] QRS duration 80 ms [facility] T wave axis 59 degrees [facility] GLUCOSE, FINGERSTICK-IN OFFI CEon 03-23-2023 Glucose [Mass/Vol] 183 mg/dL High 80-116 [facility] Comment on above: Result Comment: Foll ow Protocol Performed By: #### [id number] #### [facility] GLUCOSE PROGRAM [address] [place] [address], [id number] HEPATIC FUNCTION PANELon Albumin [Mass/Vol] 3.9 g/dL Normal 3.4-5.1 [facility] Comment on above: Performed By: #### H FRANCES AHN #### [facility] [address] [place] [address], ALK 138 IU/L Normal 40-200 [facility] Comment on above: Performed By: #### Mirta AHN CH8 #### [facility] [address] [place] [address], ALT [Catalytic activity/Vol] 33 U/L Normal 7-40 [facility] Comment on above: Performed By: #### Mirta AHN CH8 #### [facility] [address] [place] [address], AST [Catalytic activity/Vol] 39 U/L Normal 7-40 [facility] Comment on above: Performed By: #### Mirta AHN CH8 #### [facility] [address] [place] [address], Bilirubin [Mass/Vol] 0.7 mg/dL Normal 0.1-1.5 [facility] Comment on above: Performed By: ###FRANCES BOX #### [facility] [address] [place] [address], Bilirubin.direct [Mass/Vol] 0.20 mg/dL Normal 0.10-0.30 [facility] Comment on above: Performed By: ###Gracy AHN CH8 #### [facility] [address] [place] [address], Protein [Mass/Vol] 6.2 g/dL Normal 5.7-8.1 [facility] Comment on above: Performed By: ###FRANCES BOX #### [facility] [address] [place] [address], Laboratory - Blood bankon ABO and Rh group Nom (Bld) Blood group A Rh(D) positive [facility] ABO and Rh group Nom (Bld) No Previous Results [facility] Comment on above: Patient does not req uire a 2nd sample drawn prior to surgery date of 03/31/2023. Specimen meets Blood Bank's Pre-Surgical Protocol and is valid within 14 days from date of collection but will at midnight on the day of approved Surgery. Blood group antibody screen Ql Negative [facility] ABO and Rh group Nom (Bld) Blood group A Rh(D) positive [facility] Laboratory - Chemistry and C hemistry - challengeon 03-23-2023 Albumin [Mass/Vol] 3.9 g/dL 3.4 - 5.1 g/dL [facility] ALP [Catalytic activity/Vol] 138 U/L [facility] ALT [Catalytic activity/Vol] 33 U/L [facility] AST [Catalytic activity/Vol] 39 U/L [facility] Bilirubin [Mass/Vol] 0.7 mg/dL 0.1 - 1 .5 mg/dL [facility] Bilirubin.direct [Mass/Vol] 0.20 mg/dL 0.10 - 0.30 mg/dL [facility] Protein [Mass/Vol] 6.2 g/dL 5.7 - 8.1 g/dL [facility] Glucose [Mass/Vol] 183 mg/dL High 80 - 116 mg/dL [facility] Comment on above: Follow Protocol Notified [facility] Laboratory - Coagulationon 1 aPTT Coag (Bld) [Time] 36 s [facility] INR Coag (PPP) [Relative time] 1.13 {INR} High 0.90 - 1.10 [facility] PT Coag (PPP) [Time] 12.6 s [facility] Laboratory - Hematology and Cell countson 03-23-2023 Basophils (Bld) [#/Vol] 0.03 10*3/uL 0.00 - 0.20 K/uL [facility] Basophils/100 WBC (Bld) 0.7 % NINF - 1.9 % [facility] Eosinophils (Bld) [#/Vol] 0.15 10*3/uL 0.00 - 0.70 K/uL [facility] Eosinophils/100 WBC (Bld) 3.7 % 0.1 - 4.0 % [facility] Erythrocyte distribution width (RBC) [Ratio] 13.6 % 11.5 - 14.5 % [facility] Hematocrit (Bld) [Volume fraction] 33.8 % Low 36.0 - 46.0 % [facility] Hemoglobin (Bld) [Mass/Vol] 11.1 g/dL Low 12.0 - 15.0 g/dL [facility] Lymphocytes (Bld) [#/Vol] 0.74 10*3/uL Low 1.00 - 4.80 K/uL [facility] Lymphocytes/100 WBC (Bld) 18.3 % Low 24.0 - 44.0 % [facility] MCH (RBC) [Entitic mass] 29.8 pg 26.0 - 34.0 pg [facility] MCHC (RBC) [Mass/Vol] 32.9 g/dL 32.0 - 35.9 g/dL [facility] MCV (RBC) [Entitic vol] 91 fL 80 - 100 fL [facility] Monocytes (Bld) [#/Vol] 0.34 10*3/uL 0.20 - 1.00 K/uL [facility] Monocytes/100 WBC (Bld) 8.4 % 2.0 - 11.0 % [facility] Neutrophils (Bld) [#/Vol] 2.79 10*3/uL 1.50 - 8.00 K/uL [facility] Neutrophils/100 WBC (Bld) 68.9 % 31.0 - 76.0 % [facility] Platelet mean volume (Bld) [Entitic vol] 9.8 fL 7.5 - 11.2 fL [facility] Platelets (Bld) [#/Vol] 109 10*3/uL Low 150 - 400 K/uL [facility] RBC (Bld) [#/Vol] 3.73 10*6/uL Low [facility] WBC (Bld) [#/Vol] 4.0 10*3/uL Low 4.5 - 11.5 K/uL [facility] No Panel Informationon 03-23 [facility] Interpretation and review of laboratory results Normal [facility] Interpretation and review of laboratory results Abnormal [facility] Interpretation and review of laboratory results Normal [facility] Interpretation and review of laboratory results Abnormal [facility] Interpretation and review of laboratory results Abnormal [facility] PARTIAL THROMBOPLASTIN TIMEo n 03-23-2023 aPTT Coag (Bld) [Time] 36 s Normal 25-37 [facility] System Comment on above: Performed By: #### A PTT, PT #### [facility] [address] [place] [address], [id number] PROTHROMBIN TIME AND INRon 1 INR Coag (PPP) [Relative time] 1.13 {INR} High 0.90-1.10 [facility] [employer] [facility] Comment on above: Performed By: #### A PTT, PT #### S PATHOLOGY LABORATORY [address] [place] [address], PT Coag (PPP) [Time] 12.6 s Normal 9.7-12.9 [facility] Comment on above: Performed By: #### A PTT, PT #### S PATHOLOGY LABORATORY [address] [place], [place], PSE Appt H AND Jeremy Patient Resource Specialist Authentication Interface Message Text Patient was identified by name and date of . Kassandra Griggs Patient at risk for falls:No Falls Risk protocol implemented: No Normal [facility] [employer] [facility] Patient Instructionson 03-23 Patient Resource Specialist Authentication Interface Message Text On the morning of your surgery please take only the following medications, with a small sip of water: atorvastatin (LIPITOR) 20 mg tablet CARvedilol (COREG) 25 MG tablet ursodiol (ACTIGALL) 250 MG TABS tablet cycloSPORINE (RESTASIS OP) cetirizine (ZyrTEC Allergy) 10 MG tablet levothyroxine (SYNTHROID) 100 MCG tablet Do not take any Aspirin 7 days before surgery .Do not take any Meloxicam ,Ibuprofen, Aleve, Advil, or Motrin or any other NSAIDS 3 days before surgery . May take over the counter Acetaminophen (Tylenol) as needed for pain Please hold all Co Q 10 , Vitamin E, [place] 3, fish oil and herbal supplements for 1 week prior to surgery Do not take Valsartan,hydrochloro thiazide morning of surgery Don't take any metformin evening before and the morning of surgery Do not take any diabetes medication on the morning of the surgery Normal The [facility] [employer] [facility] Progress Noteson 03-23-2023 Patient Resource Specialist Authentication Interface Message Text DX: Cervical spondylosis with myelopathy LV: [id number] Ms Banerjee comes in today with family. It is her preoperative appointment. We spent about 45 minutes talking about the upcoming surgery. They understand the importance of regular bowel habits going into surgery. They understand it's extremely important to keep her head up as much as possible and make sure to check her deltoid function at least twice a day. All their questions were answered. We reviewed the Generalities, Expectations and Home Instructions concerning the surgery. We reviewed the MRI and CT scan and discussed the surgical plan. The Risks of Surgery Form and the Informed Consent were signed by the patient and me. They will follow up the day of their surgery. Normal [facility] TYPE AND SCREENon 03-23-2023 ABO and Rh group Nom (Bld) Blood group A Rh(D) positive Normal [facility] Comment on above: Performed By: #### T S #### S PATHOLOGY LABORATORY [address] [place] [address], ABO and Rh group Nom (Bld) No Previous Results Normal [facility] Comment on above: Result Comment: Shanann ent does not require a 2nd sample drawn prior to surgery date of 03/31/2023. Specimen meets Blood Bank's Pre-Surgical Protocol and is valid within 14 days from date of collection but will at midnight on the day of approved Surgery. Performed By: #### T S #### S PATH[facility] LABORATORY [address] [place] [address], ABSC INT Negative Normal [facility] Comment on above: Performed By: #### T S #### S PATHOLOGY LABORATORY [address] [place], [place], MRI Abdomen w/ + w/o Contras ton 03-17-2023 MRI Abdomen w/ + w/o Contrast MRI abdomen with and without contrast on 03/17/2023 History: Liver cirrhosis. Technique: Multiplanar and multisequential MR images of the abdomen were obtained with and without contrast. COMPARISON: Ultrasound study on 09/30/2022 Findings: Lobulated heterogeneous liver compatible with cirrhosis. This could obscure a small lesions. However, no discrete lesion is evident. Splenomegaly measuring 14.3 cm. Recanalization of the umbilical vein. A 1.1 cm left adrenal nodule which is a small to be characterized. Unremarkable right adrenal gland. Cholelithiasis. Distended gallbladder. Slightly prominent common bile duct measuring 7 mm. No pancreatic ductal dilatation. A 2.4 x 1.0 cm T2 hypointense focus which is difficult to separate from the pancreatic body, probably prominent china hepatis lymph node rather than a pancreatic lesion. Bilateral renal cysts, some of which are too small to be characterized. An 8 mm cyst corticated with proteinaceous fluid or hemorrhage in the inferior pole of the right kidney. No hydronephrosis. No ascites in the visualized portion of the abdomen. An 8 mm nodule in the left lung base. Impression: 1. Cirrhotic liver with diffuse fatty infiltration. This could obscure a small hepatic lesions. 2. Signs of portal hypertension including splenomegaly and recanalization of the umbilical vein. 3. A 2.4 x 1.0 cm hypointense focus which is difficult to separate from the pancreatic body, probably prominent china hepatis lymph node rather than a pancreatic lesion. Consider reevaluation in 3-4 months. 4. Cholelithiasis and distended gallbladder. 5. Bilateral renal cysts. 6. A 1.1 cm left adrenal nodule consistent to be characterized, probably lipid poor adenoma. Consider reevaluation in 6 months. Final Dictated by: Mateo Shepard MD Dictated DT/TM: 03/17/2023 12:21 pm Signed by: Mateo Shepard MD Signed (Electronic Signature): 03/17/2023 1:03 pm (If Report Is Signed, Electronically Signed in Other Vendor System) Normal [facility] Comment on above: Order Comment: medtr onic bladder stim Progress Noteson 02-11-2023 Patient Resource Specialist Authentication Interface Message Text A soft cervical collar was dispensed to patient in clinic today. Normal [facility] Patient Resource Specialist Authentication Interface Message Text Patient was identified by name and date of . Lisa Huff RN Patient at risk for falls:Yes Falls Risk protocol implemented: Yes Ambulates with cane Lisa Huff RN Normal [facility] Progress Noteson 02-10-2023 Patient Resource Specialist Authentication Interface Message Text DX: Cervical myelopathy LV: [id number] Ms Banerjee returns today. She received a ANAHY [id number]. It affected her neck symptoms on the left side but it did not affect her low back pain. INV: MRI cervical performed 16oct2022 IMP: 71yo female significant cervical cord compression, significant clinical myelopathy. PLAN: I again offered her surgery. I am not sure how the ANAHY was done. She can call the office schedule surgery or follow up every 4-6 months. Normal [facility] Progress Noteson 12-24-2022 Patient Resource Specialist Authentication Interface Message Text Patient was identified by name and date of . Lisa Huff, AURORA Patient at risk for falls:No Falls Risk protocol implemented: No Normal [facility] [employer] [facility] Progress Noteson 12-23-2022 Patient Resource Specialist Authentication Interface Message Text DX: Cervical myelopathy LV: [id number] Ms Banerjee returns today. Thong [facility] pain management refused to do a ANAHY. She is going to talk to her new pain management docs in [place]. INV: MRI cervical performed 16oct2022 IMP: 71yo female significant cervical cord compression PLAN: I told her again I was concerned about her neck. Yes, I wish she can get a cervical 1 time as the temporary relief she experiences from the injection is what she can expect from surgery. She is very atypical as she has mostly lower extremity symptoms. She can call the office and schedule surgery or follow up every 4-6 months. Normal [facility] [facility] AFP TUMOR MARKERon AFP Tumor Marker 3.9 ng/mL Normal <8.1 [facility] Comment on above: Result Comment: This test was performed on the Atellica IM Immunoassay platform by Siemens which is a two-site sandwich chemiluminescent immunoassay. It is important to note that assays using different manufacturers and/or methods may not be comparable. Performed By: #### H [facility] #### [facility] (DEFAULT) [address] [place] [address] CA 19-9on 11-23-2022 CA 19-9 28.39 U/mL Normal <=37.00 [facility] Comment on above: Result Comment: This test was performed on the Siemens Atellica IM Immunoassay platform which is a 2-step sandwich chemiluminescent immunoassay. It is important to note that assays using different manufacturers and/or methods may not be comparable. Performed By: #### C A199, FOLSB #### [facility] (DEFAULT) [address] [address] CBC,PLATELETSon 11-23-2022 Hematocrit (Bld) [Volume fraction] 36.5 % Normal 34.9-44.3 [facility] Comment on above: Performed By: #### H [facility] #### [facility] (DEFAULT) [address] [place] [address] Hemoglobin (Bld) [Mass/Vol] 11.7 g/dL Normal 11.4-15.2 [facility] Comment on above: Performed By: #### H EMOGC #### U [facility] (DEFAULT) [address] [place] [address] 19454 MCV (RBC) [Entitic vol] 95.3 fL Normal 79.6-97.7 [facility] Comment on above: Performed By: #### H EMOGC #### U [facility] (DEFAULT) [address] [place] [address] 36006 Mean Cell Hgb 30.5 pg Normal 25.9-33.9 [facility] Comment on above: Performed By: #### H EMOGC #### U [facility] (DEFAULT) [address] [place] [address] 42274 Mean Cell Hgb Conc 32.1 g/dL Normal 31.4-35.9 [facility] Comment on above: Performed By: #### H EMOGC #### U [facility] (DEFAULT) [address] [address] Mean Platelet Volume Normal [facility] Comment on above: Result Comment: Not measured Performed By: #### H EMOGC #### U [facility] (DEFAULT) [address] [place] [address] Platelets (Bld) [#/Vol] 122 10*3/uL Low 150-393 [facility] Comment on above: Performed By: #### H EMOGC #### U [facility] (DEFAULT) [address] [place] [address] RBC (Bld) [#/Vol] 3.83 10*6/uL Low 3.91-5.04 [facility] Comment on above: Performed By: #### H EMOGC #### U [facility] (DEFAULT) [address] [place] [address]274 RBC Distribution 12.5 % Normal 10.8-14.9 [facility] Comment on above: Performed By: #### H [facility] #### [facility] (DEFAULT) [address] [place] [address] WBC (Bld) [#/Vol] 6.45 10*3/uL Normal 3.99-11.19 [facility] Comment on above: Performed By: #### H EMO #### U [facility] (DEFAULT) [address] [place] [address] CHEM 6 (LYTES, BUN CREA)on 0 11-23-2022 Anion gap [Moles/Vol] 14 mmol/L Normal 7-17 [facility] Comment on above: Performed By: #### H FP, IRBC, CHM6, GGTB #### [facility] (DEFAULT) [address] [place] [address] 17919 Chloride [Moles/Vol] 104 mmol/L Normal 98-108 [facility] Comment on above: Performed By: #### H FP, IRBC, CHM6, GGTB #### [facility] (DEFAULT) [address] [place] [address] 37527 CO2 [Moles/Vol] 28 mmol/L Normal 21-31 [facility] Comment on above: Performed By: #### H FP, IRBC, CHM6, GGTB #### [facility] (DEFAULT) [address] [place] [address]30 Creatinine [Mass/Vol] 1.22 mg/dL High 0.50-1.20 [facility] Comment on above: Performed By: #### H FP, IRBC, CHM6, GGTB #### [facility] (DEFAULT) [address] [place] [address]53 GFR/1.73 sq M.predicted among non-blacks MDRD (S/P/Bld) [Vol rate/Area] 47 mL/min/{1.73_m2} Low >=60 [facility] Comment on above: Result Comment: Repo rted eGFR is based on the CKD-EPI 2020 equation using creatinine, age, and sex. Performed By: #### H FP, IRBC, CHM6, GGTB #### U [facility] (DEFAULT) [address] [place] [address]246 Potassium [Moles/Vol] 4.1 mmol/L Normal 3.5-5.0 [facility] Comment on above: Performed By: #### H FP, IRBC, CHM6, GGTB #### U [facility] (DEFAULT) [address] [place] [address] 39369 Sodium [Moles/Vol] 142 mmol/L Normal 135-145 [facility] Comment on above: Performed By: #### H FP, IRBC, CHM6, GGTB #### U [facility] (DEFAULT) [address] [place] [address]45 Urea nitrogen [Mass/Vol] 35 mg/dL High 7-25 [facility] Comment on above: Performed By: #### H FP, IRBC, CHM6, GGTB #### U [facility] (DEFAULT) [address] [place] [address] 04015 Urea nitrogen/Creatinine [Mass ratio] 29 mg/mg Normal [facility] Comment on above: Performed By: #### H FP, IRBC, CHM6, GGTB #### U [facility] (DEFAULT) [address] [place] [address] FERRITINon 11-23-2022 Ferritin [Mass/Vol] 137.5 ng/mL Normal 10.0-291.0 [facility] Comment on above: Performed By: #### F ERIB, B12B #### U [facility] (DEFAULT) [address] [place] [address] 71867 FOLATE, SERUMon 11-23-2022 Folate 64.84 ng/mL Normal >5.38 [facility] Comment on above: Performed By: #### C A199, FOLSB #### U [facility] (DEFAULT) [address] [place] [address] GGTon 11-23-2022 Gamma glutamyl transferase [Catalytic activity/Vol] 28 U/L Normal 8-64 [facility] Comment on above: Performed By: #### H FP, IRBC, CHM6, GGTB #### [facility] (DEFAULT) [address] [place] [address]92 HEMOGLOBIN A1Con 11-23-2022 Glucose [Mass/Vol] 126 mg/dL Normal [facility] Comment on above: Performed By: #### A 1CB #### [facility] (DEFAULT) [address] [place] [address] Hemoglobin A1C HPLC 6.0 % High 4.7-5.6 [facility] Comment on above: Performed By: #### A 1CB #### [facility] (DEFAULT) [address] [address] HEPATIC FUNCTION PANELon Albumin [Mass/Vol] 4.3 g/dL Normal 3.5-5.0 [facility] Comment on above: Performed By: #### H FP, IRBC, CHM6, GGTB #### [facility] (DEFAULT) [address] [address] ALP [Catalytic activity/Vol] 160 U/L High 32-126 [facility] Comment on above: Performed By: #### H FP, IRBC, CHM6, GGTB #### U [facility] (DEFAULT) [address] [address] ALT [Catalytic activity/Vol] 49 U/L High 9-48 [facility] Comment on above: Performed By: #### H FP, IRBC, CHM6, GGTB #### U [facility] (DEFAULT) [address] [address] AST [Catalytic activity/Vol] 45 U/L High 10-39 [facility] Comment on above: Performed By: #### H FP, IRBC, CHM6, GGTB #### [facility] (DEFAULT) [address] [address] Bilirubin [Mass/Vol] 0.5 mg/dL Normal <1.5 [facility] Comment on above: Performed By: #### H FP, IRBC, CHM6, GGTB #### [facility] (DEFAULT) [address] [place] [address] Bilirubin.indirect [Mass/Vol] 0.2 mg/dL Normal <0.3 [facility] Comment on above: Performed By: #### H FP, IRBC, CHM6, GGTB #### [facility] (DEFAULT) [address] [place] [address] Protein [Mass/Vol] 7.1 g/dL Normal 6.4-8.3 [facility] Comment on above: Performed By: #### H FP, IRBC, CHM6, GGTB #### [facility] (DEFAULT) [address] [place] [address] IRON/IRON BINDING/TRANSFERRI Non 11-23-2022 Iron [Mass/Vol] 95 ug/dL Normal 40-174 [facility] Comment on above: Performed By: #### H FP, IRBC, CHM6, GGTB #### U [facility] (DEFAULT) [address] [place] [address] Iron Saturation 29 % Normal 20-55 [facility] Comment on above: Performed By: #### H FP, IRBC, CHM6, GGTB #### [facility] (DEFAULT) [address] [place] [address]37 Total Iron Binding Capacity 324 mcg/dL Normal 250-425 [facility] Comment on above: Performed By: #### H FP, IRBC, CHM6, GGTB #### [facility] (DEFAULT) [address] [place] [address] Transferrin [Mass/Vol] 259 mg/dL Normal 200-400 [facility] Comment on above: Performed By: #### H FP, IRBC, CHM6, GGTB #### [facility] (DEFAULT) [address] [place] [address] PROTIME-INRon 11-23-2022 INR Coag (PPP) [Relative time] 1.2 {INR} High 0.9-1.1 [facility] Comment on above: Performed By: #### P TI #### [facility] (DEFAULT) [address] [place] [address] PT Coag (PPP) [Time] 15.5 s High 11.9-14.2 [facility] Comment on above: Performed By: #### P TI #### [facility] (DEFAULT) [address] [place] [address] VITAMIN B12on 11-23-2022 Cobalamin (Vitamin B12) [Mass/Vol] 876 pg/mL Normal 211-911 [facility] Comment on above: Result Comment: Test ing of Methylmalonic Acid and Intrinsic Factor Blocking Antibody are recommended if clinical suspicion for pernicious anemia due to B12 deficiency is high for patients with intermediate B12 levels (211 to 400 pg/mL) to rule out spurious heterophile antibodies. Performed By: #### H EMO #### U [facility] (DEFAULT) [address] [address] Consent for Treatmenton 10-23 Consent for Treatment [id number]# 1.00CD:127 Normal [facility] Consultation Noteon 11-11-19 Consultation Note Patient: MASSIMO BANERJEE Age: 72 years Sex: Female : 1950 Associated Diagnoses: None Author: Gerry Jerry MD Chief Complaint 11/10/2022 9:57 EDT Neck pain History of Present Illness 72-year-old female long history of low back and lower extremity pain. She was under the care of Dr. Tian at [place]. She recently saw Dr. Vergara who obtained an MRI of the cervical spine based on the patient's progressive symptoms of standing and walking instability and clumsiness in her hands. She was found to have rather significant cervical spinal stenosis. The patient has had a recent lumbar epidural steroid injection with Dr. Tian with no benefit. Previous ablations (possible SI joint?) Were helpful in the past. Pain rates as a 6 out of 10 on the visual analog scale. The pain radiates from the neck into the left upper extremity. LIYA is 44%. The patient feels that she is relatively homebound as a result of her pain. She feels depressed as a result of her pain. She declines referral for psychological treatment and denies suicidal ideation. Review of Systems Complete review of systems obtained and reviewed. Form scanned. Pertinent findings are noted in the HPI. Health Status Allergies: Allergic Reactions (All) Severity Not Documented Morphine- Rash. Nickel- Itching. Penicillin- Swelling. Sulfur Based Preservatives- Itching. Current medications: Home Medications (21) Active acetaminophen-hydroco done 325 mg-5 mg oral tablet aspirin 81 mg, Daily atorvastatin 20 mg Tab 20 mg = 1 tab(s), Oral, Daily calcium citrate , Daily carvedilol 25 mg Tab 25 mg = 1 tab(s), Oral, BID Co Q-10 , Daily Eye Multivitamin oral tablet , Daily hydrochlorothiazide 12.5 mg Tab levothyroxine 100 mcg (0.1 mg) Tab 100 mcg = 1 tab(s), Oral, Daily lisinopril 40 mg Tab 40 mg = 1 tab(s), Oral, Daily meloxicam 15 mg Tab 15 mg = 1 tab(s), Oral, Daily metformin 500 mg Tab multivitamin , Daily Nasacort Allergy 24HR , Daily Muldrow-3 Fish Oil , Daily Probiotic 10 Ultra Strength Restasis ophthalmic 1 drop(s), BID traZODONE 50 mg Tab 50 mg = 1 tab(s), Oral, Once a day (at bedtime) valsartan 320 mg Tab 320 mg = 1 tab(s), Oral, Daily Vitamin D , Daily Zyrtec 10 mg, Daily Problem list: All Problems Diabetes / SNOMED CT 982122580 / Confirmed High blood cholesterol / SNOMED CT 97255894 / Confirmed HTN (hypertension) / SNOMED CT 2063313217 / Confirmed Hypothyroid / SNOMED CT 68830607 / Confirmed Overactive bladder / SNOMED CT 3622829102 / Confirmed Histories Past Medical History: No active or resolved past medical history items have been selected or recorded. Family History: No family history items have been selected or recorded. Procedure history: Electrical stimulation of bladder ([id number]) on 08/05/2021 at 70 Years. History of hysterectomy.. ([id number]). Comments: 05/19/2022 12:39 EST - Day Mala EDEN [address] [facility] [address] Cervantes History of right total knee replacement ([id number]). Comments: 05/19/2022 12:40 EST - Day Mlaa EDEN [address] [facility] [address] Gabriel Complete repair of rotator cuff ([id number]). Comments: 05/19/2022 12:41 EST - Day Mala EDEN [address] [facility] [address] Gabriel Complete repair of rotator cuff ([id number]). Comments: 05/19/2022 12:42 EST - Day Mala EDEN [address] [place] [address] Gabriel Social History Social & Psychosocial Habits Alcohol 06/16/2022 Risk Assessment: Denies Alcohol Use Substance Abuse 06/16/2022 Risk Assessment: Denies Substance Abuse Tobacco 06/16/2022 Risk Assessment: Denies Tobacco Use . Physical Examination Vital Signs (last 24 hrs) Last Charted Heart Rate Peripheral 68 bpm (NOV 10 09:57) SBP H 150mmHg (NOV 10 09:57) DBP 72 mmHg (NOV 10 09:57) Weight 73 kg (NOV 10 09:57) BMI 30.39 (NOV 10 09:57) General: No acute distress. Alert and oriented x3. Well-nourished. Well-developed. Musculoskeletal: Arises easily from a seated position. Neuro: Unsteady gait. Review / Management * Final Report * Reason For Exam G95.9 POWERSCRIBE REPORT IMPRESSION: Multilevel degenerative changes of the cervical spine, especially involving the C4-C5, C5-C6, and C6-C7 levels. EXAMINATION: MRI Spine Cervical w/o Contrast HISTORY: Chronic neck pain, worsening.. TECHNIQUE: Routine cervical spine MR protocol without gadolinium. COMPARISON: None. RESULT: CERVICAL: Counting reference: Craniocervical junction. Anatomic Variants: None. Alignment: Straightening of the cervical lordosis. Grade 1 retrolisthesis of C4 on C5 measuring around 3 mm, C5 on C6 measuring around 3 mm, and grade 1 anterolisthesis of C7 on T1 measuring around 3 mm. Craniocervical junction: Craniocervical junction is unremarkable. Cord: The cervical spinal cord is within normal limits of signal intensity and morphology. Bone marrow signal/fracture: No evidence for acute (more content not included)... Normal [facility] Comment on above: Result Comment: Elec tronically Signed By: Rosalino FOSTER, Gerry Ovalle.br\Date and Time Signed: 11/10/22 11:01 EDT HIPAA Forms Officeon 023 HIPAA Forms Office [id number]#1 .00CD:127 [facility] Legal Correspondence Officeo n 11-10-2022 Legal Correspondence Office [id number]#1 .00CD:127 [facility] Legal Correspondence Office [id number]#1 .00CD:127 Normal [facility] Office/Clinic Note-Physician on 11-10-2022 Office/Clinic Note-Physician [id number]#1 .00CD:127 [facility] Patient Correspondenceon Patient Correspondence [id number]#1 .00CD:127 [facility] Patient Correspondence [id number]#1 .00CD:127 [facility] Patient Correspondence [id number]#1 .00CD:127 [facility] Patient Correspondence [id number]#1 .00CD:127 [facility] Patient Correspondence [id number]#1 .00CD:127 [facility] Patient History Officeon Patient History Office [id number] .00CD:127 Normal [facility] Provider Letteron 11-03-2022 Provider Letter Cooper EllerMD [address] [place] [address] [address] [place] [address] Re: Massimo Banerjee Date of Visit: 04/21/2022 Dear Cooper Eller, Attached you will find the office visit and/or procedure documentation for Massimo Banerjee. Let me know if you have any questions or concerns. Sincerely, Lisa Yanez RN C C Providers: Result Name Current Result Outside Imaging 11/02/2022 Normal [facility] Progress Noteson 10-29-2022 Patient Resource Specialist Authentication Interface Message Text Patient was identified by name and date of . Lisa Huff RN Patient at risk for falls:No Falls Risk protocol implemented: No Normal [facility] [employer] [facility] Progress Noteson 10-28-2022 Patient Resource Specialist Authentication Interface Message Text DX: Lumbar stenosis rule out cervical myelopathy LV: [id number] Ms Banerjee returns today to review the new cervical MRI. Remember, she received a LESI which DID NOT affect her symptoms INV: MRI cervical performed 16oct2022 IMP: 71yo female significant cervical cord compression PLAN: I mentioned the option of a ANAHY at [facility] if the providers feel appropriate. She realizes the temporary relief the injection gives her is what she can expect permanently from an operation. Saying that, it would delay surgery for 3 months. I am offering her surgery on her cervical spine. I gave her the Risks of Cervical Surgery Form, the Generalities, Expectations and Home Instructions Form and names of surgeons in the area that I trust. She will consider her options. Normal [facility] [employer] [facility] MRI Spine Cervical w/o Contr rosette 10-22-2022 MRI Spine Cervical w/o Contrast Exam Date/Time: 10/16/2022 15:46 EDT Reason for Exam: G95.9 Report IMPRESSION: Multilevel degenerative changes of the cervical spine, especially involving the C4-C5, C5-C6, and C6-C7 levels. EXAMINATION: MRI Spine Cervical w/o Contrast HISTORY: Chronic neck pain, worsening.. TECHNIQUE: Routine cervical spine MR protocol without gadolinium. COMPARISON: None. RESULT: CERVICAL: Counting reference: Craniocervical junction. Anatomic Variants: None. Alignment: Straightening of the cervical lordosis. Grade 1 retrolisthesis of C4 on C5 measuring around 3 mm, C5 on C6 measuring around 3 mm, and grade 1 anterolisthesis of C7 on T1 measuring around 3 mm. Craniocervical junction: Craniocervical junction is unremarkable. Cord: The cervical spinal cord is within normal limits of signal intensity and morphology. Bone marrow signal/fracture: No evidence for acute or chronic fracture. No destructive osseous process. Cervical soft tissues: The paraspinal soft tissues are unremarkable. C2-C3: Tiny disc bulge without significant canal or foraminal narrowing. C3-C4: Broad-based disc bulge. Endplate osteophytes. Facet/uncovertebral degenerative changes. Mild bilateral foraminal narrowing with mild canal narrowing. C4-C5: Disc height loss. Broad-based disc bulge. Endplate osteophytes. Facet/uncovertebral degenerative changes. Severe bilateral foraminal narrowing with moderate to severe canal narrowing. C5-C6: Disc height loss. Broad-based disc bulge. Endplate osteophytes. Report Facet/uncovertebral degenerative changes. Severe bilateral foraminal narrowing with severe canal narrowing. C6-C7: Disc height loss. Broad-based disc bulge. Endplate osteophytes. Facet/uncovertebral degenerative changes. Severe bilateral foraminal narrowing with moderate to severe canal narrowing. C7-T1: Anterolisthesis. Facet degenerative changes. No significant canal or foraminal narrowing. Upper thoracic spine: Visualized upper thoracic canal and foramina without significant narrowing. Ordering Provider: Geri Vergara FINAL REPORT Dictated: 10/22/2022 3:36 pm Agustín Martinez MD Signed (Electronic Signature): 10/22/2022 3:36 pm Signed by: Agustín Martinez MD Transcribed by: KENYA Technologist: GIANNA Technical Comments None Normal [facility] Gastroenterology Office/Clin ic Noteon 2022 Gastroenterology Office/Clinic Note Chief Complaint 6 mo follow up primary biliary cholangitis, colon polyp tubular adenoma, diarrhea. Pt c/o epigastric pain and pressure. History of Present Illness Here for follow up Last seen 03/2022 Here for follow up Last seen 10/01/2021 Here for follow up Last seen 07/08/2021 Here for follow up Last seen 04/08/2021 Here for follow up Last seen 11/07/2020 Here for follow up Seeing us for PBC Has been on Ocaliva as well as Mihai Last seen 08/05/2020 Massimo is a 69 year old female here to establish care Has been seeing Dr Greco for almost 20 years due to PBC Seems like 20 years ago had routine blood work performed Her ALP levels were 308 with an increased AMA At that point she was started on Mihai and the levels improved dramatically In addition she did undergo a liver biopsy that was consistent with non specific salinas-portal inflammation Over the past 15 years she had done well Recently her ALP level has increased and Dr Greco placed her on Ocaliva 10 mg in addition to her Ursodiol In addition she is being seen at [facility] with regard to an opinion Feels well No complaints No ascites No jaundice No signs of bleeding No encephalopathy Hx of hypothyroidism for which she is on synthroid and as per the patient her disease is well controlled Denies new medications Recent RUQ US 2020 -Fibrosis -Mild fatty liver -Gallstones 06/2020 T richard 0.1 0.4 0.5 0.3 Alb 3.7 3.5 3.5 3.7 4.5 3.4 ALT 64 60 73 42 30 36 AST 42 47 41 27 26 22 ALP 209 197 212 162 144 103 Cr 1.15 1.03 Hgb 12 12.9 PLT 163 198 Liver biopsy 2003 mild periportal chronic inflammation and focal fatty change Imaging MRCP 2002 No cirrhosis 6 mm pancreatic cystic lesion within the uncinate process Renal cyst CT Abd/pelvis 2017 - gallstones - cirrhosis with steatosis Colonoscopy 2016 - Diverticulosis - no colonic polyps Colonoscopy 2016 - Hemorrhoids - Diverticulosis - 1.7 cm sessile polyp - removed - villous adenoma Colonoscopy 2002 - normal colon - normal ileum [1] Interval History 11/08/2020 Blood results from 08/15/2020 ANDREE 1:640 HCV AB - Anti LKM - INR 1.00 WBC 7.9 Hgb 12 plT 154 T richard 0.3 TP 6.8 NA 143 BUN 25 Cr 1.17 ALT 83 AST 50 ALP 105 ALB 3.3 AFP 3.2 A1AT 143 Ceruloplasmin 25.6 Hep A AB - AMA + ( 119) HB sAB - HCV - [2] US with elastography performed at OSH which is not here for review Most recent LFT 10/15/2020 ALK 180 AST 31 ALT 41 Alb 3.5 total Richard 0.5 She has no complaints Her concern is with regard to the recent FDA warning with regard to the use of Ocaliva in patients with PBC with advanced cirrhosis [1] Interval history 04/08/2021 Overall doing well Recent US of liver (03/31/2021 10:45 EST US Liver w/ Duplex + Elastography) IMPRESSION: 1. Hepatic steatosis. 2. Cirrhosis. 3. Liver fibrosis staging mild to moderate (F2-F3). 4. Cholelithiasis. 5. Unremarkable liver Dopplers. [2] Recent blood work Hb 12.3 INR 1.0 ALK 151 AST 62 ALT 61 Cr 1.15 Na 138 Total bilirubin 0.6 MELD 8 Only on Ursodiol Off of the Ocaliva No ascites No jaundice No encephalopathy No signs of bleeding Doing well AFP 3.1 [1] Interval GI history July 07, 2021 Overall doing quite well Recent endoscopy was negative for any esophageal or gastric varices or portal hypertensive gastropathy. EGD Esophagus - no varices - no mass - no stenosis - GEJ 40 cm Stomach - no varices - multiple superficial pre-pyloric erosions - bx - no PHG Duodenum - no varices - normal - random bx taken f/u bx OTC PPI f/u in office in one week [2] Diagnosis (Verified) Part A: Duodenum, biopsies: Normal duodenal mucosa. Part B: Stomach, biopsies: Mild inactive chronic gastritis. [3] Recent blood work demonstrated hemoglobin of 12, platelets of 145, total bilirubin of 0.4, Sodium of 140, creatinine of 1.15, ALT of 57, AST of 45, alk phos of 136, hemoglobin A1c is 6.1% INR 1.02 MELD 8 [1] Interval GI history October 01, 2021 Overall is doing quite well. She continues the ursodiol 500 mg twice daily Recent blood work demonstrates hemoglobin slight decreased 11.8 with an MCV of 88, INR 1.0, sodium 141, alkaline phosphatase 148, ALT 39, AST 38. Recent sonogram of the liver was consistent with probable cirrhosis, F0 to F1 fibrosis. No evidence of ascites. (09/08/2021 10:58 EDT US Liver + Elastography) IMPRESSION: 1. Probable cirrhosis. 2. Liver fibrosis staging normal to mild (F0-F1). 3. Cholelithiasis. 4. Likely benign right renal cyst. [2] [1] Interval GI History 04/21/2022 Since her last office visit Repeat colonoscopy colonoscopy - minimal int hemorrhoids - scattered diverticula - no rectal varices - hypertrophic anal papilla - 2 mm cecal polyp - removed with cold forceps bx - 4 mm ascending colon polyp - removed with cold f (more content not included)... Normal [facility] Consent for Treatmenton 05-2 Consent for Treatment [id number]#1 .00CD:127 Normal [facility] RAD - MRI Screening Formon 0 10-16-2022 RAD - MRI Screening Form [id number]#1 .00CD:127 Normal [facility] Physician Orderon 10-12-2022 Physician Order [id number]#1 .00CD:127 Normal [facility] Progress Noteson 10-08-2022 Patient Resource Specialist Authentication Interface Message Text DX: Lumbar stenosis rule out cervical myelopathy LV: FT with Janie Henning PA-C Ms Banerjee returns today with a friend. She actually received a lumbar epidural steroid injection at [facility] which did not affect her symptoms. We would wanted to get an MRI of her cervical spine also the same time but the insurance company did not approve it. She comes in today still with significant numbness and tingling in her hands clumsiness in her gait but she does have classic neurogenic claudication. INV: MRI lumbar spine is reviewed. Significant L4-5 spondylolisthesis but there is a salvage engineering technician sagittal of the entire spine which shows significant cervical spondylosis can not determine if there is cord compression secondary to the resolution. IMP: 71yo female lumbar stenosis unresponsive to epidural steroid injections rule out cervical myelopathy. PLAN: We absolutely need to perform a cervical spine MRI. She will call on Wednesday to for that order at but she can have it done out at [facility]. She will follow up once that is complete. Normal [facility] Progress Noteson 10-06-2022 Patient Resource Specialist Authentication Interface Message Text Patient was identified by name and date of . Judigilson Flores Patient at risk for falls:No Falls Risk protocol implemented: No Normal [facility] GLYCOHEMOGLOBIN A1Con 2022 ADA RECOMMENDATION SEE BELOW Normal [facility] Comment on above: Result Comment: ADA RECOMMENDED LIMIT 4.0 - 6.0 ADA THERAPEUTIC TARGET < 7.0 ACTION SUGGESTED > 7.0 Performed By: #### A 1C #### [facility] [address] [address] [address] Fernanda Sanon Glucose [Mass/Vol] 134 mg/dL Normal [facility] Comment on above: Performed By: #### A 1C #### [facility] [address] [address] [address] Fernanda Sanon HbA1c (Bld) [Mass fraction] 6.3 % Critically high 4.5-6.2 [facility] Comment on above: Performed By: #### A 1C #### [facility] [address] [address] [address] Fernanda Sanon POINT OF CARE GLUCOSEon 06-24 Glucose [Mass/Vol] 138 mg/dL Critically high 74-106 [facility] Comment on above: Performed By: #### P OCGLUC #### [facility] [address] [place] [address] Dr. Fernanda Sanon Coding Summary.on 06-23-2022 Coding Summary. CD:[id number] G h0bWw+PGhlYWQ+UX7XSZV uK06wjBUkvI7XR5xKJN9F CETXAFHYXO1JNB9dwJQ0A KftE5EjzhZu QagcqUNdGO15HJx6RLA4p MmeKUskbL2djEQjC4e5Wk YvBL30lA17UGpfDRKgBzB 3LjZpbjsgbWFy N9mkXwWksKFrPsw+PHRhY mxlIHdpZHRoPScxMDAlJy CbrWqpVZ4mZb5tUSJyDAI vbGxhcHNlOiBj n2mvEJIsKExzFK4uvQvfW 3VfsQW0DQDgd9v8Dm06zI I+BRCjBYS1gBphAEbcz35 3TfSac3cuIFK5 gNMjGEaoOHV8Q65vp3R0S HIySLZuRGQ6lWZ0zN0vwZ rzmjijU8AhdSZkJwB6OBP 1wKTnqM1rrMkt bmwmrJ7iOmq+F39TOI6LU YYOBV6TFgj2G3VqDpcksA I+FH81HLXbFU32oHQvmWA be5keuGk8VpTs BBAgFMY2sKdkUGbfq5JbJ JUwI97nnQVzu4Y5GBWtiM gkhSZvXaTbiJR3dE6nCNs ndagpj7mllnkw Jmsbn6zhdl08yM82O61nA SejTOEdESP2UAHoZFCwdS nknd0gkW0rXf5+DEqzc7h me7kkoYy4YyQz WZJzwdZofSjxMVC9i2VvN b86U3OfpXdjr4NlRar1pq 32pSZze8G6bPH8ZKjzHPC iuG0cTJowZdZ3 BXZnWwXrmZ31aELsZGplC h8cqQahfNjnUF6iYXDgtg myBSBuwN9kCFCanMWhcLl nAA4dYGMawwfn f925QjSuSNT9LKRmvDUaE 8DzyE1yZyFhSSPbGBMtN7 KnhNQdHUmfR984DNkfCsS 5CCYkyvCoX5Al QTDbpDxzXhQ0m8T9Fl5Xs 3ExodlnFZN0QBqpWMPrSf AqBcDkVaT7O2XqGko6ZUI zyDgrPU5qP5Bh RVFxymrsvkbbeUI1WNJvN KDpaC50gKKrUKmzKx9zb7 G8k179UXBgNGNpvN68Ka7 udDogMTBwdCBU lO3xuytzb2zwctifScThA POhCKf5SHm1JZEeyDbpBa ElJHS6KhA4AWI4mHIjcS8 iaZioacytwH5k Oyc+R31maU2cBOY4ZVO1i ykiRAVmtvRqLW57LN28P3 RyPjwvdGFibGU+PGRpdiB dzRrcHE3qBoMp u0app0RwMAesL8NkPGKcG JwaZcg2LSLtYXK1yIM8eP 7kVKWaNEyxm4I9kWO7P3Q plwWthp8ay8xd KHAsTLghU42csFPzv7E1D HTpgJL1SHOesQczUlBdqK 93Oyc+DUUtiMxnu0UmEkj yq2hsl2ndzJn0 LmLqCWWkhiAuqTcdDOB6f 3LfDn24O45kWXxpNTMeBO JdKKNqGKWdgBoocj1phQ8 wIi8+PGNvbCB3 iIS9jN0vFUEdPdN7VSjgM 102NhNfyBGrMotaz8rfu3 idhXr0YyQwXDEvtaAdiKf iTKE3r4TxQf03 U17pNTovPPWuLDHnWQNuB PRzhRrhex6iaB8wCz6+PC 7qz8mmai81rX94oTE+PHR bYBK6fOepJLxj HHEobS8nTWsyDkI0WWMbQ hWciK22bLBiAEboTb1lbQ lccHwhTJ3bMSOwgydbs89 8CmDzs2szYSFb uQTrPPkiOBL5I07dt2A9M FKbIAGjLZG6kOL9rV2pvN lnbjogbGVmdDsgdmVydGl fFCfzRPxeZ291 IHRvcDsnPlBhdGllbnQgT bBmKHs4G7SdDfv0NVVcxJ stYC0jyDOzVAceHc2xiTl poXglJW3kVAXh vplfr047YbHdi2pxKPUdw YKlWUinQHS5C65ui5Q1FO TkJGEePCE1kVX2tN8dlFf nbjogbGVmdDsg xlFqjVfvZAzeDPduI749I HRvcDsnPkJpcnRoIERhdG X6IW47AH20oAFab8W8fFJ 7L0AaDQArfnfo cmlhoQQ3GSQzBXCcoP49P w7hfAufBp6ePDSuHLN1SE UpbIHjF9EljU6lMgMoNPZ hBBUaW5XhpUAi GEzaU212KDnqNlP8MVVam pPeI0KyIVOpkDoqNvA9c3 M8Qd0AV3S5YX46RK23dKZ ll0D6pCY4M2Zm MTBbmornukvosKY4FRYjO ETmyX46Tw0qyNmwZp2gXQ IdBDT0UYYquOYzJ7XvdC3 yOiAjMDAwMDAw V7NjkQAoEXawN158HJinW jK3XLQpfqTqP3JwWKFqdQ vkDmP2o9J3Nn0EDZt5DO5 3EP11sNQzt6X8 jWZ2Z3BjYMFxdjafxeenf CX9ZMWkUZPgiJ33Hn1sdT oiOk0qHYUbOCI0MHIjsES bG5CttK4eHwQh XZXrVFXuR1FcwCIcXUvjA 711LFpnGlB2EGFzhrSdX1 XzTCKieStyCmT8d8Y2Qx4 CNVZpJN04TXY9 eON3RG78XN55Z9NyDxugx GFibGU+PHRhYmxlIHdpZH RoPScxMDAlJyBzdHlsZT0 gPg5uHQVuYKVf aAnxrIYjHrMkr2smZTHxC McvSG8qqFrmS7LbwIB6ML Fjr9y5Lq60Z33pO7ZnlFF +WRWvgCT1vXE2 fC2aCrYyXtD5TXzsT799J yZtgKOqWbqfg2pqx3snmJ w2BqU4SJUoasSupKunCTX 2a5XiLp78V57o IHdpZHRoPSIxNSUiIHZhb Nhcbi9kiE6fLc9+PGNvbC F2eHU2oR1vQjCxPeC1PXg gO395DqXdoQKf Alwzv1rzp7gusMu9SjItM TCdgjCyuVqqYIX7x5KxVj 85G8OfjDnji6LmRsf3op1 1uAWdk0C6bIM2 H7NmAREvwbzmiYLlxTazF O2qWEEdabjwQQPowU6vXB BqP3t4TgTbDwM1BNhbO2N exvJ7QYHvbWKb XYwqBOL7Y19ei4L0KEBuQ AVpYTS0iOO6cU8hkUcupl ogbGVmdDsgdmVydGljYWw zAAxuN664LYNp cVuzRNXnkG3qCRWefJQcn RwvTW0iMXFjcbdeOmSUCu VzUZDLJupvEG0DCUCWKB3 7W4GuTlv2VFVy kCubGT5fsVMxGKytBd4ix QydbKwbTE4oCODpgggfSQ OydF4hUYQsxMWvqBhaON3 tNATyuqaue250 XqDnAEU9ZZSnpAIcM0Gfy S2rBkWeMMGlCCSlP9DnkO SqYNxwQ087SHxqDbI3LCE kppHeR9QaXCOp aCkyCzH8i2W0Xl5zDL4fC F7gZTEtSM48OS26sWIrq3 K7oQN8P6RxVZAbxskqbhf acOW2WFWaGIHj xJ12uYDdPEmuAa3ki5V5p 236QSOgRNVumR65Mv8keC lnUNJymNMSrN6hnzvbp2i vcjogIzAwMDAw LXf2VQj7RMXycJgxKwDmZ IN8TnH2KTV6rYJuxM7iiS vgnerceL6tFxn+NzIgWWV qptR2S0IsFwp5 SRRlkUlhKP6ezAUfQZiqO m7qsNabyKusDP7dPTXglg pyMMKtmZ4xZOKlcOUbwMb hNT8kDMRfdhmf w342DoHgJYI2EIFkaBCsZ 1TxfW4kZaCkBAUxRZUwE6 KvfQWqBKcoS998BTxmHwW 0RFIbowGdD4Qp NXZvjEeyUrQ5j9R2Oa9HA F1cuCF5B7WnGiv9BAUhtX ylAK2lsGKePZqxLh7sbHy qbKlvBV2eIXGj uyleTKQbhY3rBQZdvYJoi PatCO0gVXAcrmtsw985Fk AvMCB4POAchMUsS7ObzW3 yOiAjMDAwMDAw U5MxyZFdVOimU101HRinD kB3BQUcvqPnS6GyHYWxmU xxLjS1k1D1Nn1DfSIvOQV kOL92OG24DQ71 Z7AvCfyjxEAoyZL+PHRhY mxlIHdpZHRoPScxMDAlJy MmmMauEK6eCo3yRKWdMMK vbGxhcHNlOiBj v7ilIISaRIisOW3tuYckP 8LcjJA4NIGpc6g6Xx84Q2 6nR7JtqOO+ZQUlvCI4nMS 3gW9uFnXuDcF2 MLjfC674RvCxmJQqEtoag 6wgq1edbMn4OmVaKREjkx QpdOjcAWP6j1FvWr92T01 sIHdpZHRoPSIy GCDeRTXnsPqgwe4pdA7mM i8+GQFetFB5uJE1uB7cZx NrCiM5RAqqG438EdZcyWG pMuauG34jG9Os dXA+AVCuJen3VXOutLhiM H0vtQLoXBimQm7wZYC2Rq PjXhWmVQwsO8HcYCPihwq kmsgiiYC5PQYj TXIruA25Zk7atIthLj2fC YTiICH6IKMaeRVrB1LiiR 1zUpWfDAPjFGXcJ6AygNC jRAjvD668EGzv HfX2QYWlstXqJ6QoZBYei JzwTbG2k8M5Le9QoRsigH UaSM1kOlCdPQo3G9ZlXli 8VSSttOfvIN9g uOWdWLkyWe5bkEhrqAqcU F9pEJXhywdwg131IhEmr8 yzYBVgmTQwFIgiLZP5E84 nw6J4FZCmCNFp ADA2yRY7uY0gdLxstneso GVmdDsgdmVydGljYWwtYW wnC675XMZupVdtPpDGIeb 4X8CoXou6PUPy nQnyTR0ngXThMKbyJm3jn AbucPgpXZ7mZDXykztsc6 18CuJko3mnULIocHFpPMx eUPW4J52qy0D0 OIWrCAOzOZY5nIR8yO0mk GlnbjogbGVmdDsgdmVydG feLFdpBRynS650KZQizIw rRy7EThk4J9Qk Fos7CCAzxUftRT0zcMKzU TacSk0ljBjyoZliFE3kOK Txjddqw660MnJte9roRXH wcHQgVGltZXM7 U58lu9G2FRWmVZFxKDW1q KL0uZ8lgDlozzxzyAXixJ odiyPyrGkiZGnfZJseX67 6IHRvcDsnPlBh eWVyOjwvdGQ+XU32tq72E 5ToWpzbPrk5SZXuGUI7sP D7bA9gHUXsSCflh5B0jBV 1R1OqpaEtgu4s b2xs (more content not included)... Normal [facility] Consent for Treatmenton 05-25 Consent for Treatment [id number]# 1.00CD:127 Normal [facility] Consultation Noteon 06-16-19 Consultation Note Patient: MASSIMO BANERJEE Age: 71 years Sex: Female : 1950 Associated Diagnoses: None Author: Janie Henning PA-C Subjective Chief complaint 06/16/2022 13:42 EST Spine-Follow Up . Patient is a 71-year-old female. She presents today for follow-up after undergoing a lumbar MRI She continues have lower back pain with left radiating leg pain and intermittent left leg weakness. She rates her discomfort a 5/10 She states that she has difficulty with any sort of ambulation or doing physical activities. This affects her ability to get comfortable. This affects her quality of life and activities of daily. Patient has previously seen Dr. Tian. From my review of those records she had a lumbar RFA as well as a left gluteal trigger point injection but the sacroiliac joint RFA was denied by her insurance It does not appear as though that she had any epidurals and she states that she call them to confirm this and she has not had any epidurals Health Status Allergies: Allergic Reactions (Selected) Severity Not Documented Morphine- Rash. Nickel- Itching. Penicillin- Swelling., Allergies (3) Active Reaction morphine Rash Nickel Itching penicillin Swelling Current medications: (Selected) Documented Medications Documented Co Q-10: Daily, Refills(s) 0 Eye Multivitamin oral tablet: Daily, Refill(s) 0 Nasacort Allergy 24HR: Daily, Refill(s) 0 [place]-3 Fish Oil: Daily, Refills(s) 0 Vitamin D: Daily, Refills(s) 0 Zyrtec: 10 mg, Daily, Refills(s) 0 acetaminophen-hydroco done 325 mg-5 mg oral tablet: TAKE 1 TABLET BY MOUTH TWICE A DAY NEEDED aspirin: 81 mg, Daily, Refills(s) 0 atorvastatin 20 mg Tab: 20 mg = 1 tab(s), Oral, Daily, # 30 tab(s), Refills(s) 0 calcium citrate: Daily, Refills(s) 0 clindamycin 150 mg Cap: 450 mg = 3 cap(s), Oral, q8hr, # 90 cap(s), Refills(s) 0 hydrochlorothiazide 12.5 mg Tab: TAKE 1 TABLET BY MOUTH EVERY DAY levothyroxine 100 mcg (0.1 mg) Tab: 100 mcg = 1 tab(s), Oral, Daily, # 30 tab(s), Refills(s) 0 lisinopril 40 mg Tab: 40 mg = 1 tab(s), Oral, Daily, # 30 tab(s), Refills(s) 0 meloxicam 15 mg Tab: 15 mg = 1 tab(s), Oral, Daily, # 30 tab(s), Refills(s) 0 metformin 500 mg Tab: TAKE 1 TABLET BY MOUTH TWICE A DAY multivitamin: Daily, Refill(s) 0 ursodiol 500 mg Tab: 7.5 mg/kg, Oral, BID, with food, # 180 tab(s), Refills(s) 0 Problem list: All Problems Overactive bladder / SNOMED CT 2663301566 / Confirmed Diabetes / SNOMED CT 668613836 / Confirmed HTN (hypertension) / SNOMED CT 0242221035 / Confirmed Hypothyroid / SNOMED CT 46521043 / Confirmed High blood cholesterol / SNOMED CT 01659235 / Confirmed Objective Vital Signs 06/16/2022 13:42 EST Peripheral Pulse Rate 65 bpm Respiratory Rate 18 br/min Systolic Blood Pressure 140 mmHg Diastolic Blood Pressure 75 mmHg Mean Arterial Pressure, Cuff 97 mmHg General: Alert and oriented, No acute distress. Eye: Normal conjunctiva. HENT: Normocephalic, Normal hearing. Cardiovascular: No edema. Musculoskeletal Normal range of motion. Normal strength. Other than bilateral hip flexion 5 -/5 Integumentary: Warm, Dry, [place]. Neurologic: Alert, Oriented. Psychiatric: Cooperative, Appropriate mood & affect. Results Review * Final Report * Reason For Exam M54.50 POWERSCRIBE REPORT IMPRESSION: MILD MULTILEVEL DEGENERATIVE DISC DISEASE WITH CENTRAL DISC HERNIATION AT L2-L3. MILD CANAL STENOSIS AT L3-L4 AND L4-L5 AND MILD TO MODERATE CANAL STENOSIS AT L2-L3. QUESTION POSSIBLE LUMBAR INSTABILITY L4-L5 EXAM: MRI Lumbar Spine MRI Spine Lumbar w/o Contrast COMPARISONS: None CLINICAL HISTORY: Low back pain radiating into left leg. M54.50 TECHNIQUE: Multisequence multiplanar imaging of the lumbar spine was performed without gadolinium contrast. MR contrast: MultiHance Volume of contrast: None cc. FINDINGS: Vertebrae: Vertebral bodies show normal age-related bone marrow signal changes. No acute fracture. Conus: The conus medullaris ends at L1 level and is unremarkable. T12-1: Normal central canal and neural foramina. L1-L2: Normal central canal and neural foramina. L2-L3: There is broad-based disc bulging with central protrusion/extrusion and slight caudal migration of the herniating fragment. Marked facet hypertrophy and thickening of ligamenta flava also present at this level. These changes are resulting in crowding of the nerve roots resulting moderate central canal stenosis. Posterior epidural fat is preserved at this level. Abutment and probable compression of the traversing nerve roots on the right with associated right lateral recess stenosis. Borderline left lateral recess narrowing. Borderline to mild left foraminal narrowing. No right foraminal narrowing. L3-L4: Broad-based disc bulging with facet hypertrophy and thickening of ligamenta flava. Mild central canal stenosis. Mild right lateral recess narrowing mild right foraminal pito (more content not included)... Normal [facility] Comment on above: Result Comment: Elec tronically Signed By: Janie Henning PA-C\.br\Date and Time Signed: 06/16/22 14:02 EST\.br\Electronically Co-Signed By: Geri Vergara MD\.br\Date and Time Co-Signed: 06/21/22 21:27 EST Office/Clinic Note-Physician on 06-16-2022 Office/Clinic Note-Physician [id number]#1 .00CD:127 Normal [facility] Coding Summary.on 06-15-2022 Coding Summary. CD:[id number] G h0bWw+PGhlYWQ+QL9FYST mT95wqRQxoL0GP6bUPA5F IMUVUJKILO9WVV9xkKS9F NebY9TvjgDw WevxlAOiZH20AJs1DYR8v OftAHilfG1bmJKtI5e2Mk TnFG73fH05FUxdBFLqDhH 3LjZpbjsgbWFy K9baXwWxxLOwEet+PHRhY mxlIHdpZHRoPScxMDAlJy YspUqcWA8nPb1pPZKjCCM vbGxhcHNlOiBj p2bfIIUeMYwbRG2xmUldW 5VzpZD4UHVxf4q2Vj87aM I+XOAiHMZ4fUxiOCmps47 0LpAmi7kmWNE3 bLIeLZsqXLF8M20il5Y0W ZJbUYEpZEB3pAM3vZ6rmH mthwwcD0MksQDuNhB2XPW 8pRLliY8ohScj pmbdxK4hNtk+K13FSZ3AS ZHXXP3SRub1D1MuAekweX I+DW77PBSeLE50uKNjzLN dr9wjqWv2JkOc ATDcFIS5bMohSCoor5JrB WFaH99dqPSrt4G7HLVwcH mqqVPyNlOegRR1kC6oNVl okyocz5mhfois Fkyxt8bfrc97bB25I17dF NrpNWYiJGV0VAUePGDcqM rbcf7ezL5kCq8+VBniu6e uu8irzYy9KzRm KOWzbxOylWptNTN7a2ViY w42J6UdzAzwt2EhXsf5tj 73pYXih3C8xVZ0UZdvTJF doP8nYAmaFeX5 SFRbNvBfyQ76hXGwWYbwN b6bfDuwgUogCN6rVLWgxq vzYPMfbC2aNBIkrQAosQn bRL1kKILdevqk d890YdAlIAA6NRVgaKZrK 2IxgP4bPyWxWHRqOHGzD6 BgqYXgZNfkN102NCpfZnZ 0FGJmiyGqF2Ck MKBqxIpvDnC6s7Y7Hn5Yw 2BgzbkiGJS4CFpeOQIcHb OpLqWeZpQ2C0FkDyl5SXY jbPjsSJ1kV6Dn IBHxodlehotcjUG8QZFpE WXxpO53sXAkCVtuZt8ye7 X0a888NOKpYSTwsL18Aj8 udDogMTBwdCBU zV3cszsns2ppayvuPmRnZ UGdEWt2DMm5HTHdvFmbAe AbSWD6OeI1DGZ6aKFgpJ2 flIrqwafbwU6g Oyc+O96vbZ0bURQ7IZO8v ekqEXDozoKjCK56OR75E7 RyPjwvdGFibGU+PGRpdiB fjPkbZK6vKwZz x6eda9CqVUehW2FeKBStG CgoAyo5EAFjCAG1mQO4kY 2xJSSjOMqdw3Z8zII2F2T ncjQblv1fi5ya UCZzGNsqN46tuNSgb5P2T ORqbMO9TSYhlNinZzZsvM 93Oyc+GEJdaNfqn7ZnYkz ky2csz2gnrLp3 TsJoPPQcvcJjhBarIHM3q 0RmJf46A89iMAxxVQIiSU EeATPmNSTkuWuxmq5mbE4 wIi8+PGNvbCB3 oLY5fU3bEUVvCnA1MIshC 758RjTusCAdKdufp0wpb5 wfrNu0JdJgKJYzrjQgmFl fXUZ4c9QiQg60 N51rKIuyOQWdHZSjNBYeN XGreNwihu4dcL9gNi9+PC 5yn4balb26kZ47tSL+PHR nOZX4sRzvUOux NSQcqS3zBZzaMlB1XBXhV tIbsB12eIYeWMzwWs7esT ahiJuxQC9lTLJnrridb53 1TzHkm6lvNXXt bRCaAIaaRYN0J45mh5S9I RAaEYQhRBC4jZD9wS6sqI lnbjogbGVmdDsgdmVydGl fUUwvPWtfG205 IHRvcDsnPlBhdGllbnQgT sUiBLd1X1BxJtt2DPQduW bsHU9ffEZsZOzjFc8wfNq nnNqfBT9yOSZt pqisr803NuJom0hmCRZbu HQqSWfsZQS0L62ng4C5LO HjHOEvPJM0iND3pH6zuUt nbjogbGVmdDsg mqAjdVnwYFcqREsyI144M HRvcDsnPkJpcnRoIERhdG Q2BL07BX23hYOsc2Z0zQR 8L8YwPUWhotzs jyzgpSY6OSHmAXPtiT21S k9fiZurJp4jMOJrTED0RI QfoZUqY1QesV5zCuUuOOU lONRpQ3RxcOEb JBiaV566DJeyNuJ3VWPrq aFsH9BlLAJrzZejWeK1b7 S9Sn6RY3U8VJ11EX71mNS dc3A9lCD2J5Me PBDrdfglwsnxmFS1JSYiO DBdxU75Vn5vcXjoIb5vQB MkQJU4QHZgzGYgE0AaxF5 yOiAjMDAwMDAw Y4AplSJtDRokF814UIzbW iG9CXLhvtBpQ4RiOMOxoJ obSrA6e5U9Zl3SNKd9IM6 8KZ19aBTpz5S2 bMN1C6ZpWDJiviknbywrd UK6FVUaKALosH86So7vcL krBk5vXZXcPKT9FEYusWZ kS6SsaR3uKsNr DNTjXQJvY7WeoRGeYFldT 313OIzrRkR4CARmmuSqQ4 RdMBXtaEypMaV8z3X0Ik7 XTNMuMA06CBR2 bQE2LN53WZ96S6IzIhzft GFibGU+PHRhYmxlIHdpZH RoPScxMDAlJyBzdHlsZT0 mId9mDOIkWINp pGxrtSZlFvGuo7vmSTNuY WvbYY7bdEzfP6ZmxMC3EI Hgt5c6Hg60A24kA4CfaNT +GFDapRZ1mQK7 yM9hFeDiUqG3GKsiX612M jMwvCVoZuias3own2wbxN i8AtQ3NYQkapKygHucQZJ 1e6YrOd80O23o IHdpZHRoPSIxNSUiIHZhb Ahylp6yyH3jPe3+PGNvbC W3pQU8lB7pFaDnSfT5CLh lJ567EhVdnPKi Trqoa0jxc6nvlCd1KjWxH IKymaQouJyzMGM4y7WnBx 16Q8KgbIwys4SkGjs9lf7 8aOPdn8O4oUE7 O9JmMFTkogemvPHelJxmS S5lFEAdvqszGLVciW4jEA DfN5e5FjXjHqR2IGokF8K urbE4FBMilAAx IEtkRZQ2P47sy7V0MQTiS VEuGKV5pYH0aP3mfYttai ogbGVmdDsgdmVydGljYWw vWXybH927DQXo jZhiOOYsnU2kQBWzeJCoy OuuKC7sHBXlhuuoVbCVJh WjOGJPRtujPU6HGRMHXM3 9P3NkIyw6NAUv dRueTP0wpMXiCGfoUh9zq MsfvAinDZ4zECVgldxlIO SvfA3xJBKcsGMpqClgSS0 dIQQnkklkg928 OjOwAYS3DNRamOKbL0Ohs Y7hSgZhLEFyCLXgQ5HvaZ EzWTfdX036NRbhNiC9CQJ mmfGpQ6UsBJBu iJyjEcZ8w8Y1Jt2cWA7xO M5dRXGkDD96IX84dUDou1 L4tZQ3J0OzLNLptdikcae rdOK2TOFrAQBy yR11fLCiSSeuOx4ff1H5u 332LWVwPJOatF21Pu3ycZ unWUVpjYWKzV2xpaaky9m vcjogIzAwMDAw WNf1IDr3FVPplZnhDxUyR SD6RaT8ESX6tUSjsQ6yaO jpujpyaC0kAwe+NzIgWWV wafZ8F3LpGgq8 TUJicWcyTH5ceTIvCHgaZ f1ghRbduFobQO6eTFNtcv kqQSBinZ3oTFRhxXLxjWf uVN4yEZMryfng a872SqDcXAS7WLJigCTgT 7HhiP9lLvDkAWMuQLStR6 YghRMjFTfwJ851WTfbQfJ 9GIYfxeFsC8Lu HDWfwZobRvS3g6N8Sw8MU I9hjQW8B0TuKaq4PVHrnQ yeYN1bfWLtIOsuDs4clZi prGdgSL4gEXDn wecuXHMbiA9xIKZdtRQmb IzlJB7zDTUovtxix946Tk GzKUX6GYCxrGIhV7VcwC6 yOiAjMDAwMDAw F1GfsOYpCVhpQ257FInuF aB8RBLdvkMiS9QjGTSzcB ytYfF9q8J9Fb7YgLUzLFK jOC36QG55XL26 Y8QqGwnsrZImsGC+PHRhY mxlIHdpZHRoPScxMDAlJy JpoRhfRB5tWn5qROVxDGA vbGxhcHNlOiBj s2prUYIwBIalWG1zpGndF 8SvyUM3GZPsl4x2Gg05G2 0wU6ElgSC+ZADvgJZ4nJD 9nC5aZdAeMvE6 WJhiB417FpDmjWJdZhjjx 1byf7ygmKn2FzNgXSKmkd YktMskGNQ9y9LlVl06B74 sIHdpZHRoPSIy MYJzZBTazOaszx0wrH4xA i8+HPEdyMN8wSJ9sQ0oXj TwRfK9WZooU505CrWzoNA jWlgnR13uZ5Up dXA+YUKcXip1OZJmkSdaY G9wcLXtQDitUf1gEUV9Sj NnNrMkRSxhJ4PzBITasrh ncujunOW2QMIu XLUrlF28Ay9leTouOe6zU TCvUAX3XIDfpGCkL5NseG 7gEhFxGUGuOGIhV8CrlWM nGPrsZ849YHgw XvT2EJOtabDtL0SwEOTuq HdzBsP8g9M3Qv1LlHagnQ HqQP7uSdBuAGk4I5LhLnp 3ABEkyOwtEW2s qTLxHLedJf8kpNwsxDsrV Y3gZIIycynhy642RtSrz2 fsBLAwxZLpWMshYHM9Q95 hv2C5UKFzTLGu USX5zKE3fZ7uqYtbnagyf GVmdDsgdmVydGljYWwtYW lmW081MVIodBunQsUDPvt 7Y2JyMjz5AFIs hNfySP9shIIjYIpfUg1ik YhkdNyaHX5rQRMuuzzem2 68HwIcg7zkNQPqwQFcMQt lKVY4I10wn1C3 SEJuIUQuHUG0kQB5pI9hp GlnbjogbGVmdDsgdmVydG wwRAcxKUhrF025XPCtvUq yFg9VQli4A9Zu Cbv3JIIefYdcWM7haTRqM VfkLl2haPwnjSqjWJ9qII Mkkquxt944HnHnp2quATP wcHQgVGltZXM7 H38jc9U5BRRyZRLcWJN0v IK9oZ6lyXpeubgozWMawQ pcrxEfpAlxWJblMWlrG03 6IHRvcDsnPlBh eWVyOjwvdGQ+PI99kg70W 2OiNmotTiu1XIOjROQ4gV S5cV5lXUSaKOrzw6O3lQV 7V2UzkfUtzh8q b2xs (more content not included)... Normal [facility] MRI Spine Lumbar w/o Contras ton 06-11-2022 MRI Spine Lumbar w/o Contrast Exam Date/Time: 06/09/2022 11:53 EST Reason for Exam: M54.50 Report IMPRESSION: MILD MULTILEVEL DEGENERATIVE DISC DISEASE WITH CENTRAL DISC HERNIATION AT L2-L3. MILD CANAL STENOSIS AT L3-L4 AND L4-L5 AND MILD TO MODERATE CANAL STENOSIS AT L2-L3. QUESTION POSSIBLE LUMBAR INSTABILITY L4-L5 EXAM: MRI Lumbar Spine MRI Spine Lumbar w/o Contrast COMPARISONS: None CLINICAL HISTORY: Low back pain radiating into left leg. M54.50 TECHNIQUE: Multisequence multiplanar imaging of the lumbar spine was performed without gadolinium contrast. MR contrast: MultiHance Volume of contrast: None cc. FINDINGS: Vertebrae: Vertebral bodies show normal age-related bone marrow signal changes. No acute fracture. Conus: The conus medullaris ends at L1 level and is unremarkable. T12-1: Normal central canal and neural foramina. L1-L2: Normal central canal and neural foramina. L2-L3: There is broad-based disc bulging with central protrusion/extrusion and slight caudal migration of the herniating fragment. Marked facet hypertrophy and thickening of ligamenta flava also present at this level. These changes are resulting in crowding of the nerve roots resulting moderate central canal stenosis. Posterior epidural fat is preserved at this level. Abutment and probable compression of the traversing nerve roots on the right with associated right lateral recess stenosis. Borderline left lateral recess narrowing. Borderline to mild left foraminal narrowing. No right foraminal narrowing. L3-L4: Broad-based disc bulging with facet hypertrophy and thickening of ligamenta flava. Mild central canal stenosis. Mild right lateral recess narrowing mild right foraminal narrowing. No left foraminal narrowing. L4-L5: 4 mm anterolisthesis. Disc space narrowing. Mild broad-based disc bulging with mild indentation on the anterior CSF space. Facet hypertrophy and thickening of ligamenta flava. Mild central canal stenosis. There is widening of the facet joints Report with increased facet fluid bilaterally. This can be associated with instability of hypermobility of the lumbar spine. Mild bilateral foraminal narrowing left greater than right. Mild bilateral lateral recess narrowing as well. L5-S1: Disc space narrowing. Minimal ventral ridging on the thecal sac without canal stenosis. Mild bilateral foraminal narrowing. Minimal bilateral lateral recess narrowing. Retroperitoneum: No abnormality of the visualized aorta or retroperitoneum. FINAL REPORT Dictated: 06/11/2022 9:23 am Geri Muro MD Signed (Electronic Signature): 06/11/2022 9:23 am Signed by: Geri Muro MD Transcribed by: KEYNA Technologist: ADRIEL Technical Comments None Normal [facility] Consent for Treatmenton 05-24 Consent for Treatment [id number]#1 .00CD:127 Normal [facility] RAD - MISCon 06-09-2022 RAD - MISC [id number]#1 .00CD:127 Normal [facility] RAD - MRI Screening Formon 0 06-09-2022 RAD - MRI Screening Form [id number]# 1.00CD:127 Normal [facility] Office/Clinic Note-Nurseon 0 06-04-2022 Office/Clinic Note-Nurse [id number]#1 .00CD:127 Normal [facility] Physician Orderon 06-04-2022 Physician Order [id number]#1 .00CD:127 Normal [facility] Physician Order [id number]#1 .00CD:127 Normal [facility] Coding Summary.on 05-21-2022 Coding Summary. CD:[id number]:[id number] G h0bWw+PGhlYWQ+YY0LNOD bV37cfRKszD2VF1kWIF2L DQYXNKLZDB4PCR9eeWK9B WpuO3HxpuSy OjxjcWOdOG95NQe4DSY8p RirDQnpeJ9nwDPbL3o8Se UePM00tQ50UZwlCSYwSwN 3LjZpbjsgbWFy X2mtTiKxwULqLig+PHRhY mxlIHdpZHRoPScxMDAlJy HpaLgsYZ2bDy5qGMImWUJ vbGxhcHNlOiBj h3pmMWMmTJtjEA5flXwfE 1YblUM6SNAmz0o6Cq95yW I+QYTpZFX8nPbcTNidr32 5SpNmw3pjPNE2 oZEbXHolYZZ8M37kv8Z3C KEvJEGvUWB1jMA0dX8knU cqfnknK0OxcAMzDwY8WBF 6eAItfG7iqNzz ljlliX7vMgl+A38WYE7EU XPZVO0FRbc0R3GrFaimlJ I+BS86ASRfFT01dBIciUX uc5cfaBq4NoFh JJCpPGS5eOqkBFjdi3WmA DToE14poSJki3I6POWeaF btvCPtJxPdjNA4rU6vUSe pnxxjp5shxdma Mbwjm7pqhe83mK26V96mR KbkTRVoGMR6GXXiRWNkjJ tniv0qvU0mHa9+JJsld2k ik9osuYn9OfVc PSJrsdZkuUzvRUU1h0IvL p88K8HutBobi6BbUjq1qv 92nKWlb8D6lED3HTefOMH fbW5nMYyqAxI0 VOVtTbDrnU22pMHhKEzzL m9vmZnkcZbhEJ8rBXMgqq vpHCIkzL5bPERiwJVxeIl nHE8rWHQqgcyd f210MyYkXEN7QGIlaMTjZ 7UjkM7pKwUhPIZsXIFbL1 FouAKdERgpX731NGtxWrI 0JZJdviXgR0Eq VAAhpXkcIgE1m1Z6Ks3Fs 1OlpnimDNE1XRxuOQBnUt N3FgFgBuZ2G3OzEss7HVB qqHdoEI2eB1Qr HXVixhhoioicsAG7ALEwK SQhlO54lPCcWYuuGq7gb5 D5m606ENRrYEXvfB20Aq9 udDogMTBwdCBU eL6qojzpm0pjaeeuFaNnW CUuTEf0PDu9WCBlrAwvTg WxHSV2OfC0GZL3lVAdmG6 eyHswwsyirY6u Oyc+W79lfQ8tGWL4UAW6h oqcQDPtftKuTC42LV86K9 RyPjwvdGFibGU+PGRpdiB uiNdbAP2qKwVc b3agt8DsKQztF6HvELVnQ UhuYza6UTLkOII6oGO8oF 4lDGDdFRzez0Z8hQJ2R6X wihBljx7fl8ky VKNwMIkbS18avMCgv2Q9Z IRwlRH3ZFBnuJqgSuKblX 93Oyc+AIEijIpgk8HoHrv rq6qce6dgyWu4 ZrHxADHqigLzrFreWEA3w 6MySy49V52dJDlhOOPpFC OpIOBbNHBtsUqafn2adU7 wIi8+PGNvbCB3 dUP1xV8dRQXjZrG2RYviG 280RjAjwNZbObzfc9yds3 vcrBg8VoFkCSNhnlFwuQs aPNT2z9KhEc31 X00qIUewQRZtIHGvCGNhR OGbyMfwlj2nlX9zRt5+PC 4rf9gogl64aV18eRL+PHR hMBT8lYsxTPob PJHuqD7uOPciFdH8SAWcG lRnhG42wKAnIRjzCp4zrA pfiNjhQH8eHYHsyrfpg29 7YoClx5anMWIe aHEfUGwxCXV7G33yy6S0Z MSrYRJoTSC9tKK3yE8vrO lnbjogbGVmdDsgdmVydGl pCOfiQKwjX320 IHRvcDsnPlBhdGllbnQgT wIhOMa6T6PzFry3BYZhaL rhFJ7shNEzPRunOk4kuHy pzOeeUS3bBTDm bubqj376RqSci5idKBBya GPxOCwuMKQ2N25kl1N0CM NiMTLhSEI5jPE4qU8mjLn nbjogbGVmdDsg bwCvoEdqAHykRExiF993G HRvcDsnPkJpcnRoIERhdG X6HR08WN76fVZax3N5kLD 6D9SmGSQmaxax jfisrGL1WGBuPWYxmQ58B j6bbTegJn6aJWQmJUB2YA SicITdN5ShsK5lJyUbQZE aHETrT4YgfIOh WZusB175SUzsOiA1HRDtt bPaD4RtVJKgsExePsO7z7 J8Mq3FJ8Q3WK17GB41vCR pm5O7xWF7V6Rl CSZotzcsruzcsOD6NDQmD KEdrW55Sn1pvUudYn8bNK BfNLD8YBMejKUiE3FfwY5 yOiAjMDAwMDAw A3TtcUAhLVvvM845XDexL wU0UAWzrbNkM9BtCTNqsY vpFiD7k4C8Pw3CWYl0QZ7 8HI13bUWsr5Y8 hQY4P3OzSRGjcuxsdikmt BO2JTGzUQImtI39Lj0tpR gcJd3xZKIzTKN3XESuaZQ cH3KonD8aUvCc VNJiRDYhZ1FrfLMcWQtcU 072OEaiSnT3VABgorOqZ9 QkRAZplAnnAqM7l2U8Fs2 CSQBsNT97OHJ9 iPI9JS98YG41Z9QgEnhvr GFibGU+PHRhYmxlIHdpZH RoPScxMDAlJyBzdHlsZT0 eEd0qSXMbYHQp hSxiaJPsDbSpz8avKQNxU FnkTT7peOpwZ9PyyNN1DR Dbl6r2Mr73P51dW0WzjTW +VVOtsBD8rSW8 lI4nXkUgMxI0XJyuH085A jHqaNJqLjhev2esk9aixY g2XwN6FZBuqdMlyWplRHF 3j8CiWk44P89q IHdpZHRoPSIxNSUiIHZhb Uoiak9dfL2aDh1+PGNvbC I5bRR1zG5bAyVyOnZ6XDc rS241AeJhjOOi Bcnvc4lzh9hnkMk0YiToY GZamlFycYrzAOF0b9GhUl 40U2LxcPqtl5IgOry7bn3 0iIRwn1X1yWF6 Q0YqCQRjbxuksLGziQkqQ E3vPOMaazmwUMOotJ0nFF SgK5w9NtNoRfM6DNaqT3M nqpJ6XEZmxIBh QEspTOC3B20bc8Z3SSWaP VKuXQX4rWS8pN0enLtqmj ogbGVmdDsgdmVydGljYWw mFFkbB176YUXc iWvcRPQuhB4aUVJfcEQzr WuyMF5aLZIuldyaGhIODo XwFTKJYrjqSB3LEFZDCH4 6U1KyBxq4NJQx gOioZR7iwZFiRSnyMq0hd IsudEinNF6jVOLindogYI ZrnQ9oOMAklNZuaMafZC2 bOTDjqqqdp380 KfJoVFQ6LAFacMHfE3Ore O3oLvFaBWIpCNWxP2CerV ZfTJfdD100BYvrMcC1JLN komEtD0FlNYTf cEvvAuB3k1H4Gp6kTK3yN S6vVALtWN34CC12kBEil6 G0eRZ8R6AvXBHflrjtwtf smBQ1SFHgYVOe fC55yQGqSSnoHs8yk2V4d 227TOSgCBJgoU60Ea9esC oeIGYliMITsQ1nnfigh7p vcjogIzAwMDAw NJz6NAp4QZFnzClxVkNeW MV4HkS8XMV4uVQxhU2ilC gokmmijU0nZzn+NzIgWWV gjrM4R3AhZtv4 BGWmzEunWH4qlEAmVJqgV u0bdAjsiTreWX7pMSXhjh kyQBZdrB2gRWQkzZYtlJl nPG1xLJGzurhe w071XaYsYOX3RTZggUCwT 7InkE6xIjLnSQMnCBShA7 SewWBgANdlX903RKmcZuK 9WVTaqxQaX6Tf MRTqlWmfAmW2v4I1Hv4KZ K3wgWM7F5PsRuc6ELAdjD vbEP3rsELlPKfaSg8kfCf xjFhbZA8qOKEf jlkkPGEtqJ5uQXSkqZVyl BwmBM5uTMPvmvaff103Mp IiHKX4QXWvqLJlC8LurL5 yOiAjMDAwMDAw P5YodFHlKFshX669PPtpL wM8EBWvmpHbB7SmDMKcfM xbWuM9x3H6Es0AbVTzCCV lKT38VE84YZ90 C8JzGbrowFWmwNU+PHRhY mxlIHdpZHRoPScxMDAlJy PptAotIG2bGa8cXTEvSEB vbGxhcHNlOiBj g9xpMVTkXXcoEG0pqSdxA 1KzqXT2ZWTsa5n3Fn16K1 2wZ6CluQU+UUMkyRH3tVD 0hG5mIgMoYaK7 FVspA496QtAbzGIcVgeqf 4esa9hlzRq1BsWhWPFciw FqwKjwSDG1e0PzMc78G43 sIHdpZHRoPSIy QNOsWPTonDimpi4peC8jI i8+AFInsIA4wCV3nM0cYy QdRzU9HChpT370AjVbsLA mPcycE60aG2Nb dXA+ZDUkHiu9VTOmoCovQ H2woQGwOIkaOs0yXVX9Oa KaHqYyDLxdC2NiTSJnwvn jtxvkjJO8JHAs FPTihU95Ah0glTjqId7sR HPdACM2SQThtWPgI8LsjS 3xHvKrSHJtXTAnY4YgvWR zTZjrM826CTnz XzZ9UHMxayKjS1DxPJKuu UllIaP4t2Y9Jf5UiWfmtJ DjAS2dKrToUPj9Y8FoYrb 1XQQmdAzmZO8b rUQgJGqqKo3qfGrtqEgyX O6dTIQoxcufc992NyBsc0 ptJBNqdGRwFZyePCC9G21 ur6T2VYKtADKz MUT7oHN2fU7viZviakydj GVmdDsgdmVydGljYWwtYW sjC347RIFzdOpjXnLHHcn 8F2UlHuo9LXGx qAlgIQ8vuDZqSRjhPx5ne LnucGmkSW8yWESqghxvc7 17ChGhr1htBNKesVLhDOx yGOZ5A90ss1A0 RHJgPTYeLTD5vVH3mV0gv GlnbjogbGVmdDsgdmVydG ljRJogEWltR280ALAufJc dJj6QEvx1X9Vx Yqx7JZXwzMsdOQ8jiHAoT SalYj8qsAyorAogTQ5xDI Odyugal293KxXli3rxUSV wcHQgVGltZXM7 G27vi4J9JGTcFJGpZNX7u YX6iD3psRhdshfcxFYvrS rfdfWhaEvfAUxuRDhrG04 6IHRvcDsnPlBh eWVyOjwvdGQ+HN61vo71H 6WkKqesSvc3PMLnEPJ5kH F8aW7vBBTpWTuxa3W7dHQ 9D7OrzrIzlv3z b2xs (more content not included)... Normal [facility] Consent for Treatmenton 04-24 Consent for Treatment [id number]# 1.00CD:127 Normal [facility] HIPAA Forms Officeon 022 HIPAA Forms Office [id number]#1 .00CD:127 Normal [facility] Legal Correspondence Officeo n 05-19-2022 Legal Correspondence Office [id number]#1 .00CD:127 [facility] Office/Clinic Note-Physician on 05-19-2022 Office/Clinic Note-Physician [id number]#1 .00CD:127 Normal [facility] Patient History Officeon Patient History Office [id number]#1 .00CD:127 Normal [facility] Outside Records Officeon Outside Records Office [id number]# 1.00CD:127 Normal [facility] Radiology Outside Office Zigzag Appliquer yon 05-12-2022 Radiology Outside Office Copy [id number]# 1.00CD:127 Normal [facility] Radiology Outside Office Copy [id number]# 1.00CD:127 Normal [facility] Referrals Officeon 2 Referrals Office [id number]# 1.00CD:127 Normal [facility] CT LSPINE WO CONon 2 CT LSPINE WO CON EXAMINATION: CT LSPINE WO CON HISTORY: Lumbar radiculopathy , spondylosis, sacroiliitis, chronic low back pain COMPARISON: No relevant comparison available. TECHNIQUE: Axial, Coronal, and Sagittal CT images were created without I.V. contrast material. Dose reduction techniques were achieved by using automated exposure control and/or adjustment of mA and/or kV according to patient size and/or use of iterative reconstruction technique. FINDINGS: PARASPINAL AREA: Right neurostimulator extending up the left sacrum. Moderate atherosclerosis BONES: 4 mm anterolisthesis of L4 in relation to L5. Mild to moderate diffuse degenerative spondylosis and facet osteoarthropathy DISC LEVELS: 12-L1: Moderate degenerative disc disease is present without visible neural impingement. L1-L2: Moderate degenerative disc disease is present without visible neural impingement. L2-L3: Disc space narrowing. Broad-based disc herniation the perfusion type extending up to 3.9 mm. Ligamentum flavum and facet osteoarthropathy. No central canal or right foraminal stenosis. Minimal left foraminal stenosis L3-L4: Disc space narrowing. Broad-based disc herniation of the protrusion type extending up to 3 mm posterior inferior migration. Ligamentum flavum and facet osteoarthropathy. No definite central or left foraminal stenosis. Mild narrowing of the right neural foramen sagittal image 24 L4-L5: 4 mm anterolisthesis of L4 in relation L5. Moderate disc space narrowing and disc desiccation with vacuum disc. Moderate diffuse disc bulge/pseudobulge. No central canal or right foraminal stenosis. Moderate narrowing of the left neural foramen L5-S1: Disc collapse with endplate sclerosis. Mild diffuse disc/osteophyte complex and facet osteoarthropathy. No central canal stenosis. Mild bilateral foraminal stenosis IMPRESSION: Degenerative changes resulting in central and foraminal stenosis at multiple levels Electronically authenticated by: WILVER HANNAH Date: 2022-05-04 08:26 Normal [facility] CT PELVIS WO CONon 2 CT PELVIS WO CON EXAMINATION: CT PELVIS WO CON HISTORY: Lumbar radiculopathy COMPARISON: No relevant comparison available. TECHNIQUE: Axial, Coronal, and Sagittal CT images obtained without IV contrast. Dose reduction techniques were achieved by using automated exposure control and/or adjustment of mA and/or kV according to patient size and/or use of iterative reconstruction technique. FINDINGS: URINARY BLADDER: No visible focal wall thickening, lesion, or calculus. LYMPH NODES: No adenopathy. BOWEL: Mild colonic diverticulosis without evidence of acute diverticulitis. Nonobstructive bowel gas pattern PELVIC ORGANS: Hysterectomy. ANTERIOR WALL: Evidence of prior hernia repair with suspected mesh placement BONES: No acute fracture or dislocation. No focal sclerotic or lytic change. 3 mm anterolisthesis of L4 and L5 likely related to facet osteoarthropathy. Vacuum disc L4-L5. Disc collapse L5-S1. OTHER: Moderate diffuse atherosclerosis. Pelvic stimulator implanted over the right buttock. 5 cm cyst partially visualized lower pole of the right kidney IMPRESSION: Moderate degenerative changes of the visualized spine Electronically authenticated by: WILVER HANNAH Date: 2022-05-01 14:57 Normal [facility] OVA AND PARASITE EXAMINATION on 04-30-2022 O AND P Exam, Formalin Only Final report Normal [facility] Comment on above: Result Comment: Refe rence Range: None Seen No PVA preserved specimen received. For optimal O and P results we suggest the use of O and P kits containing both formalin and PVA. These kits are available from your vending service technician. Performed By: #### P ANC #### [facility] [address] [place] [address] Dr. Fernanda Sanon Result 1 Comment Normal [facility] Comment on above: Result Comment: No o va, cysts, or parasites seen. . One negative specimen does not rule out the possibility of a parasitic infection. Performed By: #### P ANCEF #### [facility] [address] [place] [address] Dr. Fernanda Sanon CALPROTECTIN, FECALon 2021 Calprotectin, Fecal 83 ug/g Normal 0-120 [facility] Comment on above: Result Comment: Conc entration Interpretation Follow-Up <16 - 50 ug/g Normal None >50 -120 ug/g Borderline Re-evaluate in 4-6 weeks >120 ug/g Abnormal Repeat as clinically indicated Performed By: #### C ALPOO #### [facility] [address] [place] [address] Dr. Fernanda Sanon PANCREATIC ELASTASE FECALon 04-26-2022 Pancreatic Elastase, Fecal 415 ug Elast./g Normal >200 [facility] Comment on above: Result Comment: Shayna re Pancreatic Insufficiency: <100 Moderate Pancreatic Insufficiency: 100 - 200 Normal: >200 Performed By: #### P ANCEF #### [facility] [address] [place] [address] Dr. Fernanda Sanon GI PANEL (PCR)on 04-22-2022 Adenovirus F 40/41 Not detected Normal NOT DETECTED [facility] Comment on above: Performed By: #### G IPANEL #### [facility] [address] [place] [address] Dr. Fernanda Sanon Astrovirus Not detected Normal NOT DETECTED [facility] Comment on above: Performed By: #### G IPANEL #### [facility] [address] [place] [address] Dr. Fernadna Sanon C. Diff toxin A/B Not detected Normal NOT DETECTED [facility] Comment on above: Performed By: #### G IPANEL #### [facility] [address] [place] [address] Dr. Fernanda Sanon Campylobacter Not detected Normal NOT DETECTED [facility] Comment on above: Performed By: #### G IPANEL #### [facility] [address] [place] [address] Dr. Fernanda Sanon Cryptosporidium Not detected Normal NOT DETECTED [facility] Comment on above: Performed By: #### G IPANEL #### [facility] [address] [place] [address] Dr. Fernanda Sanon Cyclos. Cayetanensis Not detected Normal NOT DETECTED [facility] Comment on above: Performed By: #### G IPANEL #### [facility] [address] [place] [address] Dr. Fernanda Sanon E. Coli O157 Not Applicable Normal Not Applicable [facility] Comment on above: Performed By: #### G IPANEL #### [facility] [address] [place] [address] Dr. Fernanda Sanon E. histolytica Not detected Normal NOT DETECTED [facility] Comment on above: Performed By: #### G IPANEL #### [facility] [address] [place] [address] Dr. Fernanda Sanon EAEC Not detected Normal NOT DETECTED [facility] Comment on above: Performed By: #### G IPANEL #### [facility] [address] [place] [address] Dr. Fernanda Sanon EIEC Not detected Normal NOT DETECTED [facility] Comment on above: Performed By: #### G IPANEL #### [facility] [address] [place] [address] Dr. Fernanda Sanon EPEC Not detected Normal NOT DETECTED [facility] Comment on above: Performed By: #### G IPANEL #### [facility] [address] [place] [address] Dr. Fernanda Sanon ETEC Not detected Normal NOT DETECTED [facility] Comment on above: Performed By: #### G IPANEL #### [facility] [address] [place] [address] Dr. Fernanda Sanon G. Lamblia Not detected Normal NOT DETECTED [facility] Comment on above: Performed By: #### G IPANEL #### [facility] [address] [place] [address] Dr. Fernanda CHOU CONTROLS PASSED Normal The [facility] Comment on above: Performed By: #### G IPANEL #### [facility] [address] [address] [address] Fernanda BLEDSOE HEADER GI PANEL BACTERIA Normal [facility] Comment on above: Performed By: #### G IPANEL #### [facility] [address] [address] [address] Fernanda SAUER ECOLI GI PANEL DIARRHEAGENIC E.COLI / SHIGELLA Normal [facility] Comment on above: Performed By: #### G IPANEL #### [facility] [address] [address] [address] Fernanda SAUER INFO SEE BELOW Normal [facility] Comment on above: Result Comment: EAEC - Enteroaggregative E. Coli EPEC- Enteropathogenic E. Coli ETEC- Enterotoxigenic E. Coli lt/st STEC- Shigella-like toxin-producing E. Coli stx1/stx2 EIEC- Shigella/Enteroinvasive E. Coli Performed By: #### G IPANEL #### [facility] [address] [place] [address] Dr. Fernanda SAUER PARASITES GI PANEL PARASITES Normal [facility] Comment on above: Performed By: #### G IPANEL #### [facility] [address] [place] [address] Dr. Fernanda SAUER VIRUS GI PANEL VIRUSES Normal [facility] Comment on above: Performed By: #### G IPANEL #### [facility] [address] [place] [address] Dr. Fernanda Sanon Norovirus GI/GII Not detected Normal NOT DETECTED [facility] Comment on above: Performed By: #### G IPANEL #### [facility] [address] [address] [address] Fernanda Sanon P. Shigelloides Not detected Normal NOT DETECTED [facility] Comment on above: Performed By: #### G IPANEL #### [facility] [address] [place] [address] Dr. Fernanda Sanon Rotavirus A Not detected Normal NOT DETECTED [facility] Comment on above: Performed By: #### G IPANEL #### [facility] [address] [place] [address] Dr. Fernanda Sanon Salmonella Not detected Normal NOT DETECTED [facility] Comment on above: Performed By: #### G IPANEL #### [facility] [address] [place] [address] Dr. Fernanda Sanon Sapovirus Not detected Normal NOT DETECTED [facility] Comment on above: Performed By: #### G IPANEL #### [facility] [address] [place] [address] Dr. Fernanda Sanon STEC Not detected Normal NOT DETECTED [facility] Comment on above: Performed By: #### G IPANEL #### [facility] [address] [place] [address] Dr. Fernanda Sanon Vibrio Not detected Normal NOT DETECTED [facility] Comment on above: Performed By: #### G IPANEL #### [facility] [address] [place] [address] Dr. Fernanda Sanon Vibrio Cholera Not detected Normal NOT DETECTED [facility] Comment on above: Performed By: #### G IPANEL #### [facility] [address] [place] [address] Dr. Fernanda Sanon Y. Enterocolitica Not detected Normal NOT DETECTED [facility] Comment on above: Performed By: #### G IPANEL #### [facility] [address] [place] [address] Dr. Fernanda Sanon Gastroenterology Office/Clin ic Noteon 04-21-2022 Gastroenterology Office/Clinic Note Chief Complaint 6 mo follow up PBC, colon polyp. Pt c/o diarrhea, weight gain. History of Present Illness Here for follow up Last seen 10/01/2021 Here for follow up Last seen 07/08/2021 Here for follow up Last seen 04/08/2021 Here for follow up Last seen 11/07/2020 Here for follow up Seeing us for PBC Has been on Ocaliva as well as Mihai Last seen 08/05/2020 Massimo is a 69 year old female here to establish care Has been seeing Dr Greco for almost 20 years due to PBC Seems like 20 years ago had routine blood work performed Her ALP levels were 308 with an increased AMA At that point she was started on Mihai and the levels improved dramatically In addition she did undergo a liver biopsy that was consistent with non specific salinas-portal inflammation Over the past 15 years she had done well Recently her ALP level has increased and Dr Greco placed her on Ocaliva 10 mg in addition to her Ursodiol In addition she is being seen at [facility] with regard to an opinion Feels well No complaints No ascites No jaundice No signs of bleeding No encephalopathy Hx of hypothyroidism for which she is on synthroid and as per the patient her disease is well controlled Denies new medications Recent RUQ US 2020 -Fibrosis -Mild fatty liver -Gallstones 06/2020 T richard 0.1 0.4 0.5 0.3 Alb 3.7 3.5 3.5 3.7 4.5 3.4 ALT 64 60 73 42 30 36 AST 42 47 41 27 26 22 ALP 209 197 212 162 144 103 Cr 1.15 1.03 Hgb 12 12.9 PLT 163 198 Liver biopsy 2003 mild periportal chronic inflammation and focal fatty change Imaging MRCP 2002 No cirrhosis 6 mm pancreatic cystic lesion within the uncinate process Renal cyst CT Abd/pelvis 2017 - gallstones - cirrhosis with steatosis Colonoscopy 2016 - Diverticulosis - no colonic polyps Colonoscopy 2016 - Hemorrhoids - Diverticulosis - 1.7 cm sessile polyp - removed - villous adenoma Colonoscopy 2002 - normal colon - normal ileum [1] Interval History 11/08/2020 Blood results from 08/15/2020 ANDREE 1:640 HCV AB - Anti LKM - INR 1.00 WBC 7.9 Hgb 12 plT 154 T richard 0.3 TP 6.8 NA 143 BUN 25 Cr 1.17 ALT 83 AST 50 ALP 105 ALB 3.3 AFP 3.2 A1AT 143 Ceruloplasmin 25.6 Hep A AB - AMA + ( 119) HB sAB - HCV - [2] US with elastography performed at [facility] which is not here for review Most recent LFT 10/15/2020 ALK 180 AST 31 ALT 41 Alb 3.5 total Richard 0.5 She has no complaints Her concern is with regard to the recent FDA warning with regard to the use of Ocaliva in patients with PBC with advanced cirrhosis [1] Interval history 04/08/2021 Overall doing well Recent US of liver (03/31/2021 10:45 EST US Liver w/ Duplex + Elastography) IMPRESSION: 1. Hepatic steatosis. 2. Cirrhosis. 3. Liver fibrosis staging mild to moderate (F2-F3). 4. Cholelithiasis. 5. Unremarkable liver Dopplers. [2] Recent blood work Hb 12.3 INR 1.0 ALK 151 AST 62 ALT 61 Cr 1.15 Na 138 Total bilirubin 0.6 MELD 8 Only on Ursodiol Off of the Ocaliva No ascites No jaundice No encephalopathy No signs of bleeding Doing well AFP 3.1 [1] Interval GI history July 07, 2021 Overall doing quite well Recent endoscopy was negative for any esophageal or gastric varices or portal hypertensive gastropathy. EGD Esophagus - no varices - no mass - no stenosis - GEJ 40 cm Stomach - no varices - multiple superficial pre-pyloric erosions - bx - no PHG Duodenum - no varices - normal - random bx taken f/u bx OTC PPI f/u in office in one week [2] Diagnosis (Verified) Part A: Duodenum, biopsies: Normal duodenal mucosa. Part B: Stomach, biopsies: Mild inactive chronic gastritis. [3] Recent blood work demonstrated hemoglobin of 12, platelets of 145, total bilirubin of 0.4, Sodium of 140, creatinine of 1.15, ALT of 57, AST of 45, alk phos of 136, hemoglobin A1c is 6.1% INR 1.02 MELD 8 [1] Interval GI history October 01, 2021 Overall is doing quite well. She continues the ursodiol 500 mg twice daily Recent blood work demonstrates hemoglobin slight decreased 11.8 with an MCV of 88, INR 1.0, sodium 141, alkaline phosphatase 148, ALT 39, AST 38. Recent sonogram of the liver was consistent with probable cirrhosis, F0 to F1 fibrosis. No evidence of ascites. (09/08/2021 10:58 EDT US Liver + Elastography) IMPRESSION: 1. Probable cirrhosis. 2. Liver fibrosis staging normal to mild (F0-F1). 3. Cholelithiasis. 4. Likely benign right renal cyst. [2] [1] Interval GI History 04/21/2022 Since her last office visit Repeat colonoscopy colonoscopy - minimal int hemorrhoids - scattered diverticula - no rectal varices - hypertrophic anal papilla - 2 mm cecal polyp - removed with cold forceps bx - 4 mm ascending colon polyp - removed with cold forceps bx f/u bx Repeat in 5 years high fiber diet anusol prn [2] Diagnosis (Verified) (more content not included)... Normal [facility] POINT OF CARE GLUCOSEon 11-0 Glucose [Mass/Vol] 81 mg/dL Normal 74-106 [facility] Comment on above: Performed By: #### P ANCEF #### [facility] [address] [place], [place] [address] Dr. Fernanda Sanon .eGFRon 03-30-2022 Estimated GFR 59 mL/min/1.73m? Low >=60 [facility] Comment on above: Result Comment: [facility] have implemented the eGFR calculation approach that does not have a coefficient for race and that conforms to the NKF-ASN Task Force Recommendations. Stages of Chronic Kidney Disease GFR Stage 3a Mild to moderate loss of kidney function 59 to 45 Stage 3b Moderate to severe loss of kidney function 44 to 33 Stage 4 Severe loss of kidney function 29 to 15 Stage 5 Kidney failure Less than 15 GFR calculated using the CKD-Epi Creatinine Equation (2020): eGFR = 142 X min(SCr/?, 1)? X max(SCr /?, 1)-1.200 X 0.9938Age X 1.012 [if female] Abbreviations/Units: eGFR (estimated glomerular filtration rate) = mL/min/1.73 m2 SCr (standardized serum creatinine) = mg/dL ? = 0.7 (females) or 0.9 (males) ? = -0.241 (females) or -0.302 (males) min = indicates the minimum of SCr/? or 1 max = indicates the maximum of SCr/? or 1 Age = years Performed By: #### . Automated Diff #### [facility] [address] [place] [address] AFP Tumor Marker,Serumon AFP Tumor Marker, Serum 2.6 ng/mL Normal <=8.3 [facility] Comment on above: Result Comment: Refe rence values are for non- subjects only; production of alpha-fetoprotein elevates values in women. In this [facility] [place] assay AFP concentrations are <8.4 ng/mL for 99% of a normal population consisting of non- healthy individuals, without known liver disease, hepatocellular carcinoma, or germ-cell tumors. The persistence of alpha-fetoprotein , an uncommon hereditary trait may cause elevations of AFP above the reference interval. In some immunoassays, the presence of unusually high concentrations of analyte may result in a high-dose hook effect. This may result in a lower or even normal measured analyte concentration. If the reported result is inconsistent with the clinical presentation, the laboratory should be alerted for troubleshooting. For diagnostic purposes, these immunoassay results should always be assessed in conjunction with the patient?s medical history, clinical examination and other findings. The testing method is an immunoenzymatic assay manufactured by [employer]. and is tested on the [employer] DxI 600. Values obtained with different assay methods or kits may be different and cannot be used interchangeably. Test results cannot be interpreted as absolute evidence of the presence or absence of malignant disease. Alpha-Fetoprotein values are not interpretable in females for the investigation of malignant disease. Performed By: #### C [id number] #### [address] [address] B12/Folate Lvlon 03-30-2022 Cobalamin (Vitamin B12) [Mass/Vol] 1014 pg/mL High 180-914 [facility] Comment on above: Performed By: #### B 12FO #### [address] [address] Folate Lvl >22.3 Normal >=5.9 [facility] Comment on above: Result Comment: A [facility] Technical Consultation has determined that deficient Folate concentrations are considered to be less than 4 ng/mL. Performed By: #### B 12FO #### [address] [address] CBC w/ Diffon 03-30-2022 Erythrocyte distribution width (RBC) [Ratio] 13.5 % Normal 11.6-14.8 [facility] Comment on above: Performed By: #### C BC #### [address] [address] Hematocrit (Bld) [Volume fraction] 37.4 % Normal 36.0-46.0 [facility] Comment on above: Performed By: #### C BC #### [address] [address] Hemoglobin (Bld) [Mass/Vol] 12.6 g/dL Normal 12.0-16.0 [facility] Comment on above: Performed By: #### C BC #### [place] [id number] MCH (RBC) [Entitic mass] 30.0 pg Normal 27.0-35.0 [facility] Comment on above: Performed By: #### C BC #### [place] [id number] MCHC 33.5 % Normal 31.0-37.0 [facility] Comment on above: Performed By: #### C BC #### [place] [id number] MCV (RBC) [Entitic vol] 89.3 fL Normal 80.0-100.0 [facility] Comment on above: Performed By: #### C BC #### [address] [address] Platelet 111 x10*3/mcL Low 150-350 [facility] Comment on above: Performed By: #### C BC #### [address] [address] Platelet mean volume (Bld) [Entitic vol] 9.0 fL Normal 6.7-10.6 [facility] Comment on above: Performed By: #### C BC #### [address] [address] RBC 4.19 x10*6/mcL Normal 3.80-5.20 [facility] Comment on above: Performed By: #### C BC #### [address] [address] WBC 5.1 x10*3/mcL Normal 4.5-11.0 [facility] Comment on above: Performed By: #### C BC #### [address] [address] CMPon 03-30-2022 Albumin [Mass/Vol] 4.1 g/dL Normal 3.2-4.9 [facility] Comment on above: Performed By: #### . Automated Diff #### [address] [address] Albumin/Globulin [Mass ratio] 1.3 {ratio} Normal 1.1-2.2 [facility] Comment on above: Performed By: #### . Automated Diff #### [address] [address] Alk Phos 140 IU/L High 32-91 [facility] Comment on above: Performed By: #### . Automated Diff #### [address] [address] ALT [Catalytic activity/Vol] 32 U/L Normal 14-54 [facility] Comment on above: Performed By: #### . Automated Diff #### [address] [address] Anion gap [Moles/Vol] 11 mmol/L Normal 7-17 [facility] Comment on above: Performed By: #### . Automated Diff #### [address] [address] AST [Catalytic activity/Vol] 36 U/L Normal 15-41 [facility] Comment on above: Performed By: #### . Automated Diff #### [address] [address] Bili Total 0.5 mg/dL Normal 0.3-1.2 [facility] Comment on above: Performed By: #### . Automated Diff #### [address] [address] Calcium [Mass/Vol] 10.1 mg/dL Normal 8.5-10.3 [facility] Comment on above: Performed By: #### . Automated Diff #### [address] [address] Chloride [Moles/Vol] 105 mmol/L Normal 98-110 [facility] Comment on above: Performed By: #### . Automated Diff #### [address] [address] CO2 [Moles/Vol] 28 mmol/L Normal 22-32 [facility] Comment on above: Performed By: #### . Automated Diff #### [address] [address] Creatinine [Mass/Vol] 1.01 mg/dL Normal 0.44-1.03 [facility] Comment on above: Performed By: #### . Automated Diff #### [address] [address] Glucose [Mass/Vol] 123 mg/dL High 70-99 [facility] Comment on above: Performed By: #### . Automated Diff #### [address] [address] Potassium [Moles/Vol] 4.3 mmol/L Normal 3.4-4.8 [facility] Comment on above: Performed By: #### . Automated Diff #### [address] [address] Protein [Mass/Vol] 7.3 g/dL Normal 6.5-8.1 [facility] Comment on above: Performed By: #### . Automated Diff #### [address] [address] Sodium [Moles/Vol] 140 mmol/L Normal 133-142 [facility] Comment on above: Performed By: #### . Automated Diff #### [address] [address] Urea nitrogen [Mass/Vol] 27 mg/dL High 8-26 [facility] Comment on above: Performed By: #### . Automated Diff #### [address] [address] Urea nitrogen/Creatinine [Mass ratio] 26.7 mg/mg High 10.0-20.0 [facility] Comment on above: Performed By: #### . Automated Diff #### [address] [address] Diff Autoon 03-30-2022 Baso Absolute 0.0 x10*3/mcL Normal 0.0-0.2 [facility] Comment on above: Performed By: #### . Automated Diff #### [address] [address] Basophils/100 WBC (Bld) 0.8 % Normal 0.0-1.5 [facility] Comment on above: Performed By: #### . Automated Diff #### [address] [address] Eos Absolute 0.2 x10*3/mcL Normal 0.0-0.4 [facility] Comment on above: Performed By: #### . Automated Diff #### [address] [address] Eosinophils/100 WBC (Bld) 3.3 % Normal 0.0-5.4 [facility] Comment on above: Performed By: #### . Automated Diff #### [address] [address] Lymph Absolute 0.9 x10*3/mcL Low 1.0-4.8 [facility] Comment on above: Performed By: #### . Automated Diff #### [address] [address] Lymphocytes/100 WBC (Bld) 16.9 % Low 27.2-40.8 [facility] Comment on above: Performed By: #### . Automated Diff #### [address] [address] [place] Absolute 0.4 x10*3/mcL Normal 0.1-1.1 [facility] Comment on above: Performed By: #### . Automated Diff #### [address] [address] Monocytes/100 WBC (Bld) 8.3 % Normal 3.7-11.9 [facility] Comment on above: Performed By: #### . Automated Diff #### [address] [address] Neutro Absolute 3.6 x10*3/mcL Normal 1.8-7.7 [facility] Comment on above: Performed By: #### . Automated Diff #### [address] [address] Neutro Auto 70.7 % Normal 47.2-70.8 [facility] Comment on above: Performed By: #### . Automated Diff #### [address] [address] Ferritinon 03-30-2022 Ferritin Lvl 48.5 ng/mL Normal 11.0-306.8 [facility] Comment on above: Performed By: #### F ERR #### [address] [address] Hgb A1con 03-30-2022 Glucose [Mass/Vol] 140 mg/dL High 68-114 [facility] Comment on above: Result Comment: Math ematical Calc approx. The mean gluc equivalency of A1c Performed By: #### . Automated Diff #### [address] [address] Hgb A1c 6.5 % A1c High 4.0-5.6 [facility] Comment on above: Result Comment: Refe rence Range: 4.0 - 5.6 % Normal 5.7 - 6.4 % Pre-Diabetes > 6.5 % Diabetes Performed By: #### . Automated Diff #### [address] [address] PTon 03-30-2022 INR Coag (PPP) [Relative time] 1.0 {INR} Normal <=3.5 [facility] Comment on above: Result Comment: INR has no normal range. INR Therapeutic range is: 2.0-3.0 (AF, CVA, TIAs, DVT prophylaxis, acute DVT) 2.5-3.5 (Mech heart valves, recurrent thrombosis/emboli) Performed By: #### P TINR #### [place] [id number] [facility] [place] [address] PT Coag (PPP) [Time] 10.5 s Normal 8.9-11.8 [facility] Comment on above: Performed By: #### P TINR #### [address] [address] TIBCon 03-30-2022 Iron [Mass/Vol] 62 ug/dL Normal 28-170 [facility] Comment on above: Performed By: #### T IBC #### [address] [address] Iron Sat 14.8 % Low >=16.0 [facility] Comment on above: Performed By: #### T IBC #### [address] [address] TIBC 420 mcg/dL Normal 261-478 [facility] Comment on above: Performed By: #### T IBC #### [address] [address] Transferrin [Mass/Vol] 300 mg/dL Normal 192-382 [facility] Comment on above: Performed By: #### T IBC #### [address] [address] Vitamin D 25-Hydroxy Totalon 03-30-2022 Vitamin D 25-Hydroxy Total 67 ng/mL Normal 30-100 [facility] Comment on above: Result Comment: Kaleb min D 25-Hydroxy Total Reference Range: Deficient: < 20 Insufficient: 20 to < 30 Sufficient: 30 - 100 Upper Safety Limit: > 100 Performed By: #### C [id number] #### [address] [address] XR FOOT RICHARD MIN 3 VIEWSon XR FOOT RICHARD MIN 3 VIEWS EXAMINATION: XR FOOT RICHARD MIN 3 VIEWS HISTORY: Pain in both feet COMPARISON: 09/23/2021 FINDINGS: RIGHT FINDINGS: BONES: No acute fracture or dislocation. Stable fusion first metatarsal-phalangeal joint with no mechanical failure. Degenerative changes with enthesopathic spurring of the calcaneus SOFT TISSUES: Negative. No visible soft tissue swelling. OTHER: Vascular calcification LEFT FINDINGS: BONES: No acute fracture or dislocation. Stable fusion first metatarsal-phalangeal joint with no mechanical failure. Degenerative changes with enthesopathic spurring of the calcaneus SOFT TISSUES: Negative. No visible soft tissue swelling. OTHER: Scattered calcifications IMPRESSION: RIGHT CONCLUSION: Stable first metatarsal-phalangeal joint fusion and degenerative changes LEFT CONCLUSION: Stable first metatarsal-phalangeal joint fusion and degenerative changes Electronically authenticated by: WILVER HANNAH Date: 2022-03-24 12:02 Normal [facility] GLYCOHEMOGLOBIN A1Con 2021 ADA RECOMMENDATION SEE BELOW Normal [facility] Comment on above: Result Comment: ADA RECOMMENDED LIMIT 4.0 - 6.0 ADA THERAPEUTIC TARGET < 7.0 ACTION SUGGESTED > 7.0 Performed By: #### P ANCEF #### [facility] [address] [place] [address] Dr. Fernanda Sanon Glucose [Mass/Vol] 148 mg/dL Normal [facility] Comment on above: Performed By: #### P ANCEF #### [facility] [address] [place] [address] Dr. Fernanda Sanon HbA1c (Bld) [Mass fraction] 6.8 % Critically high 4.5-6.2 [facility] Comment on above: Performed By: #### P ANCEF #### [facility] [address] [place] [address] Dr. Fernanda Sanon LIPID PROFILEon 03-10-2022 CHOL-HDL RATIO NORM SEE BELOW Normal [facility] Comment on above: Result Comment: 3.3 - 4.4 LOW RISK 4.4 - 7.1 AVERAGE RISK 7.1 - 11.0 MODERATE RISK >11.0 HIGH RISK Performed By: #### L IPID, TSH, BMP #### [facility] [address] [place] [address] Dr. Fernanda Sanon Cholesterol [Mass/Vol] 141 mg/dL Normal <=200 [facility] Comment on above: Performed By: #### L IPID, TSH, BMP #### [facility] [address] [place] [address] [address] Fernanda Sanon Cholesterol in HDL [Mass/Vol] 74 mg/dL Critically high 40-60 [facility] Comment on above: Performed By: #### L IPID, TSH, BMP #### [facility] [address] [place] [address] [address] Fernanda Sanon Cholesterol in LDL [Mass/Vol] 57.6 mg/dL Normal [facility] Comment on above: Performed By: #### L IPID, TSH, BMP #### [facility] [address] [place] [address] [address] Fernanda Sanon Cholesterol.total/Ch olesterol in HDL [Mass ratio] 1.9 {ratio} Normal [facility] Comment on above: Performed By: #### L IPID, TSH, BMP #### [facility] [address] [place] [address] [address] Fernanda Sanon HDL NORMAL > or = 60 mg/dl - LO W CARDIOVASCULAR RISK <40 mg/dl - HIGH CARDIOVASCULAR RISK Normal [facility] Comment on above: Performed By: #### L IPID, TSH, BMP #### [facility] [address] [place] [address] Dr. Fernanda Sanon LDL CALC NORMAL SEE BELOW Normal [facility] Comment on above: Result Comment: <100 mg/dl OPTIMAL 100 - 129 mg/dl NEAR OR ABOVE OPTIMAL 130 - 159 mg/dl BORDERLINE HIGH 160 - 189 mg/dl HIGH >190 mg/dl VERY HIGH Performed By: #### L IPID, TSH, BMP #### [facility] [address] [place] [address] [address] Fernanda Sanon Triglyceride [Mass/Vol] 47 mg/dL Normal <=150 [facility] Comment on above: Performed By: #### L IPID, TSH, BMP #### [facility] [address] [place] [address] [address] Fernanda Sanon VLDL CALC 9.4 mg/dL Normal [facility] Comment on above: Performed By: #### L IPID, TSH, BMP #### [facility] [address] [place] [address] [address] Fernanda Sanon MICROALBUMIN, RAND URon 10-1 mALB 1.3 mg/L Normal <=30.0 [facility] Comment on above: Performed By: #### M ALBR #### [facility] [address] [place] [address] Dr. Fernanda Sanon PROF CHEM 8 (BAS METB)on Anion gap [Moles/Vol] 12.6 mmol/L Normal [facility] Comment on above: Performed By: #### L IPID, TSH, BMP #### [facility] [address] [place] [address] Dr. Fernanda Sanon Calcium [Mass/Vol] 9.7 mg/dL Normal 8.5-10.1 [facility] Comment on above: Performed By: #### L IPID, TSH, BMP #### [facility] [address] [place] [address] Dr. Fernanda Sanon Chloride [Moles/Vol] 104 mmol/L Normal 98-107 [facility] Comment on above: Performed By: #### L IPID, TSH, BMP #### [facility] [address] [place] [address] Dr. Fernanda Sanon CO2 [Moles/Vol] 29.2 mmol/L Normal 21.0-32.0 [facility] Comment on above: Performed By: #### L IPID, TSH, BMP #### [facility] [address] [place] [address] Dr. Fernanda Sanon Creatinine [Mass/Vol] 1.20 mg/dL Critically high 0.55-1.02 [facility] Comment on above: Performed By: #### L IPID, TSH, BMP #### [facility] [address] [place] [address] Dr. Fernanda Sanon EGFR-AF THAI 54 mL/min/1.73m2 Critically low >=60 [facility] Comment on above: Performed By: #### L IPID, TSH, BMP #### [facility] [address] [place] [address] Dr. Fernanda Sanon EGFR-NON AF THAI 44 mL/min/1.73m2 Critically low >=60 [facility] Comment on above: Performed By: #### L IPID, TSH, BMP #### [facility] [address] [place] [address] [address] Fernanda Sanon Glucose [Mass/Vol] 122 mg/dL Critically high 74-106 [facility] Comment on above: Performed By: #### L IPID, TSH, BMP #### [facility] [address] [place] [address] Dr. Fernanda Sanon Potassium [Moles/Vol] 4.8 mmol/L Normal 3.5-5.1 [facility] Comment on above: Performed By: #### L IPID, TSH, BMP #### [facility] [address] [place] [address] Dr. Fernanda Sanon Sodium [Moles/Vol] 141 mmol/L Normal 136-145 [facility] Comment on above: Performed By: #### L IPID, TSH, BMP #### [facility] [address] [place] [address] Dr. Fernanda Sanon Urea nitrogen [Mass/Vol] 39.0 mg/dL Critically high 7.0-18.0 [facility] Comment on above: Performed By: #### L IPID, TSH, BMP #### [facility] [address] [place] [address] Dr. Fernanda Sanon Urea nitrogen/Creatinine [Mass ratio] 32.5 mg/mg Normal [facility] Comment on above: Performed By: #### L IPID, TSH, BMP #### [facility] [address] [place] [address] Dr. Fernanda Sanon TSHon 03-10-2022 TSH 2.050 uIU/mL Normal 0.358-3.740 [facility] Comment on above: Performed By: #### L IPID, TSH, BMP #### [facility] [address] [place] [address] Dr. Fernanda Sanon POINT OF CARE GLUCOSEon 02-21 Glucose [Mass/Vol] 124 mg/dL Critically high 74-106 [facility] Comment on above: Performed By: #### P ANCEF #### [facility] [address] [place] [address] Dr. Fernanda Sanon Cult,Urineon 01-21-2022 Cult,Urine Specimen Description .CLEAN CATCH URINE Culture NO GROWTH Report Status FINAL 01/21/2022 Normal [facility] Comment on above: Performed By: #### U RC #### [facility] [address] [place], [place] [id number] Child Guidance Counselor: Beto Farah MD [facility] [address] [place] [address] [place] [address] Child Guidance Counselor: Wilver Calvillo MD Urinalysis w/ Microon 2021 Bilirubin, SemiQt,Ur Negative Normal NEG [facility] Comment on above: Performed By: #### U AMIC #### [address] [place] [address] Child Guidance Counselor: Wilver Calvillo MD Blood, Urine Negative Normal NEG [facility] Comment on above: Performed By: #### U AMIC #### [facility] [address] [place] [address] [place] [address] Child Guidance Counselor: Wilver Calvillo MD Clarity (U) Clear Normal CLEAR [facility] Comment on above: Performed By: #### U AMIC #### [address] [place] [address] Child Guidance Counselor: Wilver Calvillo MD Color (U) Yellow Normal YEL [facility] Comment on above: Performed By: #### U AMIC #### [facility] [address] [place] [address] Dr. [place], [place] [id number] Child Guidance Counselor: Wilver Calvillo MD Epithelial cells LM Ql (Urine sed) 0 TO 2 Normal 0-25 [facility] Comment on above: Performed By: #### U AMIC #### [facility] [address] [place] [address] [place] [address] Child Guidance Counselor: Wilver Calvillo MD Glucose Ql (U) Negative Normal NEG [facility] Comment on above: Performed By: #### U AMIC #### [facility] [address] [place] [address] Dr. [place], [place] [id number] Child Guidance Counselor: Wilver Calivllo MD Ketones Ql (U) TRACE Abnormal NEG [facility] Comment on above: Performed By: #### U AMIC #### [facility] [address] [place] [address] Dr. [place], [place] [id number] Child Guidance Counselor: Wilver Calvillo MD Leukocyte esterase Test strip Ql (U) Negative Normal NEG [facility] Comment on above: Performed By: #### U AMIC #### [facility] [address] [place] [address] [place]. [place], [place] [phone] Child Guidance Counselor: Wilver Calvillo MD Mucus Strands 1+ Abnormal NONE [facility] Comment on above: Performed By: #### U AMIC #### [facility] [address] [place] [address] Dr. [place], [place] [address] Child Guidance Counselor: Wilver Calvillo MD Nitrite,Ur Negative Normal NEG [facility] Comment on above: Performed By: #### U AMIC #### [facility] [address] [place] [address] Dr. [place], [facility] Child Guidance Counselor: Wilver Calvillo MD PH,Ur 6.0 Normal 5.0-9.0 [facility] Comment on above: Performed By: #### U AMIC #### [facility] [address] [place] [address] Dr. [place], [facility] Child Guidance Counselor: Wilver Calvillo MD Protein Ql (U) Negative Normal NEG [facility] Comment on above: Performed By: #### U AMIC #### [facility] [address] [place] [address] [place] [address] Child Guidance Counselor: Wilver Calvillo MD Spec. [place],Ur >1.030 High 1.010-1.020 [facility] Comment on above: Performed By: #### U AMIC #### [facility] [address] [place] [address] Dr. [place], [place] [phone] Child Guidance Counselor: Wilver Calvillo MD Urine RBC's 0 TO 2 Normal 0-2 [facility] Comment on above: Performed By: #### U AMIC #### [facility] [address] [place], [place] [id number] Child Guidance Counselor: Wilver Calvillo MD Urine WBC's 0 TO 2 Normal 0-5 [facility] Comment on above: Performed By: #### U AMIC #### [facility] [address] [place], [place] [id number] Child Guidance Counselor: Wilver Calvillo MD Urobilinogen,Ur Normal Normal NORM [facility] Comment on above: Performed By: #### U AMIC #### [facility] [address] [place] [address] Child Guidance Counselor: Wilver Calvillo MD Urinalysis with Microscopico n 01-20-2022 Bilirubin Urine Negative NEGATIVE [facility] Color, UA Yellow Yellow [facility] Epithelial Cells UA 0 TO 2 [facility] Glucose, Ur Negative NEGATIVE [facility] Interpretation and review of laboratory results Abnormal [facility] Ketones Ql (U) TRACE Abnormal NEGATIVE [facility] Leukocyte esterase Test strip Ql (U) Negative NEGATIVE [facility] Mucus, UA 1+ Abnormal None [facility] Nitrite, Urine Negative NEGATIVE [facility] pH, UA 6.0 5 - 9 [facility] Protein, UA Negative NEGATIVE [facility] RBC, UA 0 TO 2 [facility] Specific [place], UA High 1.01 - 1.02 [facility] Turbidity UA Clear Clear [facility] Urine Hgb Negative NEGATIVE [facility] Urobilinogen, Urine Normal Normal [facility] WBC, UA 0 TO 2 [facility] MG MAMM SCREEN 3D RICHARD CADon 12-25-2021 MG MAMM SCREEN 3D RICHARD CAD Patient: MASSIMO BANERJEESpenser Exam Date: 12/25/2021 : 1950 Gender:F Ordering : DR ZEUS COUGHLIN [facility] Admission #: [id number] Family : Order #: [id number] CLICK HERE TO VIEW EXAM RADIOLOGY REPORT PROCEDURE: MAMMOGRAM SCREENING 3D BILATERAL CAD COMPARISON: MG MAMM SCREEN 3D RICHARD CAD, 12/23/2020. MG MAMM SCREEN RICHARD W CAD, 12/19/2019. INDICATIONS: Screening mammography Calculator Name NCI Breast Cancer Risk Assessment Tool 5 Year Breast Cancer Risk 2.90% Lifetime Breast Cancer Risk 7.50% Personal Breast Cancer No Personal Ovarian Cancer No Treatments None Family Cancers Sister with thyroid cancer at age 63. LOCATION: [facility] BREAST COMPOSITION: Heterogeneously dense,which may obscure small masses. FINDINGS: DIAGNOSTIC CATEGORY 2--BENIGN FINDING: RIGHT BREAST: No significant suspicious finding. Scattered benign-appearing calcifications are present. No significant change has occurred. LEFT BREAST: No significant suspicious finding. Scattered benign-appearing calcifications are present. No significant change has occurred. RECOMMENDATIONS: ROUTINE MAMMOGRAM AND CLINICAL EVALUATION IN 12 MONTHS. PLEASE NOTE: A NORMAL MAMMOGRAM DOES NOT EXCLUDE THE POSSIBILITY OF BREAST CANCER. A CLINICALLY SUSPICIOUS PALPABLE LUMP SHOULD BE BIOPSIED. Dictated by: Nikko Barbosa M.D. on 12/26/2021 at 11:00 Approved by: Nikko Barbosa M.D. on 12/26/2021 at 11:11 Normal [facility] Cult,Urineon 11-19-2021 Cult,Urine Specimen Description .CLEAN CATCH URINE Culture NO GROWTH Report Status FINAL 11/19/2021 Normal [facility] Comment on above: Performed By: #### U RC #### [facility] [employer] [address] [place] [address] Child Guidance Counselor: Beto Farah MD [facility] [address] [place] [address] Child Guidance Counselor: Wilver Calvillo MD Urinalysis w/ Microon 2021 ----- Normal [facility] Comment on above: Performed By: #### B MP, IPF, CDP #### [facility] [address] [place] [address] Child Guidance Counselor: Wilver Calvillo MD Bacteria 2+ Abnormal NONE [facility] Comment on above: Performed By: #### B MP IPF, CDP #### [facility] [address] [place] [address] Child Guidance Counselor: Wilver Calvillo MD Bilirubin, SemiQt,Ur Negative Normal NEG [facility] Comment on above: Performed By: #### B MP, IPF, CDP #### [facility] [address] [place] [address] Child Guidance Counselor: Wilver Calvillo MD Blood, Urine Negative Normal NEG [facility] Comment on above: Performed By: #### B MP, IPF, CDP #### [facility] [address] [place] [address] Child Guidance Counselor: Wilver Calvillo MD Clarity (U) Clear Normal CLEAR [facility] Comment on above: Performed By: #### B MP, IPF, CDP #### [facility] [address] [place] [address] Child Guidance Counselor: Wilver Calvillo MD Color (U) Yellow Normal YEL [facility] Comment on above: Performed By: #### B MP, IPF, CDP #### [facility] [address] [place] [address] Child Guidance Counselor: Wilver Calvillo MD Epithelial cells LM Ql (Urine sed) 2 TO 5 Normal 0-25 [facility] Comment on above: Performed By: #### B MP, IPF, CDP #### [facility] [address] [place] [address] Child Guidance Counselor: Wilver Calvillo MD Glucose Ql (U) Negative Normal NEG [facility] Comment on above: Performed By: #### B MP, IPF, CDP #### [facility] [address] [place] [address] Child Guidance Counselor: Wilver Calvillo MD Ketones Ql (U) TRACE Abnormal NEG [facility] Comment on above: Performed By: #### B MP, IPF, CDP #### [facility] [address] [place], [place] [id number] Child Guidance Counselor: Wilver Calvillo MD Leukocyte esterase Test strip Ql (U) Negative Normal NEG [facility] Comment on above: Performed By: #### B MP, IPF, CDP #### [facility] [address] [place] [address] Child Guidance Counselor: Wilver Calvillo MD Mucus Strands 2+ Abnormal NONE [facility] Comment on above: Performed By: #### B MP, IPF, CDP #### [facility] [address] [place] [address] [place] [address] Child Guidance Counselor: Wilver Calvillo MD Nitrite,Ur Negative Normal [facility] Comment on above: Performed By: #### B MP, IPF, CDP #### [facility] [address] [place] [address] [place] [address] Child Guidance Counselor: Wilver Calvillo MD PH,Ur 5.5 Normal 5.0-9.0 [facility] Comment on above: Performed By: #### B MP, IPF, CDP #### [facility] [address] [place] [address] [place] [address] Child Guidance Counselor: Wilver Calvillo MD Protein Ql (U) TRACE Abnormal NEG [facility] Comment on above: Performed By: #### B MP, IPF, CDP #### [facility] [address] [place] [address] Child Guidance Counselor: Wilver Calvillo MD Spec. [place]mar,Ur >1.030 High 1.010-1.020 [facility] Comment on above: Performed By: #### B MP, IPF, CDP #### [facility] [address] [place] [address] Child Guidance Counselor: Wilver Calvillo MD Urine RBC's 0 TO 2 Normal 0-2 [facility] Comment on above: Performed By: #### B SUKHJINDER ISABEL, CDP #### [facility] [address] [place] [address] Child Guidance Counselor: Wilver Calvillo MD Urine WBC's 0 TO 2 Normal 0-5 [facility] Comment on above: Performed By: #### B SUKHJINDER ISABEL, CDP #### [facility] [address] [place], [place] [id number] Child Guidance Counselor: Wilver Calvillo MD Urobilinogen,Ur Normal Normal NORM [facility] Comment on above: Performed By: #### B SUKHJINDER ISABEL, CDP #### [facility] [address] [place] [address] Child Guidance Counselor: Wilver Calvillo MD Urinalysis with Microscopico n 11-18-2021 - [facility] Bacteria, UA 2+ Abnormal None [facility] Bilirubin Urine Negative NEGATIVE [facility] Color, UA Yellow Yellow [facility] Epithelial Cells UA 2 TO 5 [facility] Glucose, Ur Negative NEGATIVE [facility] Interpretation and review of laboratory results Abnormal [facility] Ketones Ql (U) TRACE Abnormal NEGATIVE [facility] Leukocyte esterase Test strip Ql (U) Negative NEGATIVE [facility] Mucus, UA 2+ Abnormal None [facility] Nitrite, Urine Negative NEGATIVE [facility] pH, UA 5.5 [facility] Protein, UA TRACE Abnormal NEGATIVE [facility] RBC, UA 0 TO 2 [facility] Specific [place], UA >1.030 High [facility] Turbidity UA Clear Clear [facility] Urine Hgb Negative NEGATIVE [facility] Urobilinogen, Urine Normal Normal [facility] WBC, UA 0 TO 2 [facility] POINT [facility] CARE GLUCOSEon 05-2 Glucose [Mass/Vol] 105 mg/dL Normal 74-106 [facility] Comment on above: Performed By: #### P ANCEF #### [facility] [address] [address] [address] Fernanda Sanon OPERATIVE REPORTon 2 OPERATIVE REPORT [address] [id number] OPERATIVE REPORT PATIENT NAME: MASSIMO BANERJEE : 1950 MED REC NO: [id number] ROOM: ACCOUNT NO: [id number] ADMIT DATE: 08/05/2021 PROVIDER: Sandra Alvarenga DATE OF PROCEDURE: 08/05/2021 SURGEON: Dr. Sandra Alvarenga. DEWAXER: None. PREOPERATIVE DIAGNOSES: 1. Overactive bladder. 2. Urinary urgency. 3. Urge incontinence. POSTOPERATIVE DIAGNOSES: 1. Overactive bladder. 2. Urinary urgency. 3. Urge incontinence. PROCEDURES PERFORMED: InterStim replacement of device and lead, phase 1 and 2. ANESTHESIA: MAC. COMPLICATIONS: None. ESTIMATED BLOOD LOSS: Minimal. SPECIMENS: None. PROSTHESIS: [employer] InterStim device lead and generator. DISPOSITION: Stable. FINDINGS: InterStim lead. INDICATIONS: This patient is a 70-year-old female who has had InterStim placed for approximately five years, has zero battery life left, here now for replacement of device and lead. DESCRIPTION OF PROCEDURE: The patient was taken back to the operating room after informed consent including all risks, benefits, and alternatives were obtained. The patient was transferred from the [facility] onto the operating room table, where she was induced under MAC anesthesia, and given IV for preoperative antibiotic prophylaxis. To begin the case, she was prepped and draped in the normal sterile fashion, and placed in the prone position. To begin the case, we identified the previous generator. We made an incision approximately 4 cm over this area and further dissected out opening soft tissue pocket for the generator, which was then placed into the incision. We then used the torque wrench and removed the lead. We then checked the lead back to the midline incision, made a counterincision approximately 1 cm over this area. We were able to grasp the lead with a hemostat. Once this was done, we were able to remove the lead in its entirety. At this point in time, we then took a needle and we were able to try to place this back into the S3 foramina and got a good response, we were unsuccessful. We then anesthetized the opposite side on her left side, where we were able to place the needle into the S3 foramina and get adequate response as well as plantarflexion. We then made a skin incision around this needle. We then removed the inner needle, placed the needle guide, and placed this introducer into the S3 foramina. We then removed the anterior and placed the lead. All four leads were then checked once this was placed adequately with appropriate response. We then removed the introducer, deploying the tines and deploying the lead. This was confirmed with placement with both AP and lateral fluoroscopy. Once this was done, we then tunneled the lead back over the incision and inserted it back into a new generator, which was then placed into the incision. We then checked impedances. Once that was done, we then closed the skin incision with a running subcuticular 3-0 Vicryl. We then closed the skin subcutaneous 4-0 Monocryl and all wounds were dressed with Dermabond. She was then awoken from general anesthesia, transferred to the [facility], and taken to the PACU in satisfactory condition by Nursing and Anesthesia Teams. PLAN: The patient will be discharged home to follow up with us in two to four weeks, so we can check the device. SANDRA ALVARENGA [id number] Doc#: [id number] CC: Normal [facility] FLUORO FOR SURGICAL PROCEDUR ESon 08-05-2021 FLUORO FOR SURGICAL PROCEDURES Radiology exam is complete. No Radiologist dictation. Please follow up with ordering provider. Final result Normal [facility] Basic Metabolic Panelon -0 Anion gap [Moles/Vol] 10 mmol/L 9 - 17 mmol/L [facility] Calcium [Mass/Vol] 10.2 mg/dL 8.6 - 10. 4 mg/dL [facility] Chloride [Moles/Vol] 105 mmol/L 98 - 10 7 mmol/L [facility] CO2 [Moles/Vol] 26 mmol/L 20 - 31 mmol/L [facility] Creatinine [Mass/Vol] 1.01 mg/dL High 0.50 - 0.90 mg/dL [facility] GFR >60 >60 mL/min [facility] GFR Non- 54 mL/min Low >60 [facility] Glucose [Mass/Vol] 102 mg/dL High 70 - 99 mg/dL [facility] Interpretation and review of laboratory results Abnormal [facility] Potassium [Moles/Vol] 4.1 mmol/L 3.7 - 5.3 mmol/L [facility] Sodium [Moles/Vol] 141 mmol/L 135 - 144 mmol/L [facility] Urea nitrogen (BldV) [Mass/Vol] 32 mg/dL High 8 - 23 mg/dL [facility] Urea nitrogen/Creatinine (Bld) [Mass ratio] 32 High [facility][Note 3] Basic Metabolic Profon 07-23 (cont.) Normal [facility] Comment on above: Result Comment: Aver age GFR for 70 or more years old: 75 mL/min/1.73sq m Chronic Kidney Disease: <60 mL/min/1.73sq m Kidney failure: <15 mL/min/1.73sq m eGFR calculated using average adult body mass. Additional eGFR calculator available at: http://www.[employer]portal.[employer] [place]/multiple_crcl_2012.htm Performed By: #### B SUKHJINDER ISABEL, [place] #### [facility] [address] [place] [address] Child Guidance Counselor: Wilver Calvillo MD Anion gap [Moles/Vol] 10 mmol/L Normal - [facility] Comment on above: Performed By: #### B SUKHJINDER ISABEL, CDP #### [facility] [address] [place] [address] Child Guidance Counselor: Wilver Calvillo MD BUN/CRE Ratio 32 High - [facility] Comment on above: Performed By: #### B SUKHJINDER ISABEL, CDP #### [facility] [address] [place] [address] Child Guidance Counselor: Wilver Calvillo MD Calcium [Mass/Vol] 10.2 mg/dL Normal 8.6-10.4 [facility] Comment on above: Performed By: #### B MP, IPF, CDP #### [facility] [address] [place], [place] [phone] Child Guidance Counselor: Wilver Calvillo MD Chloride [Moles/Vol] 105 mmol/L Normal 98-107 [facility] Comment on above: Performed By: #### B MP, IPF, CDP #### [facility] [address] [place], [place] [address] Child Guidance Counselor: Wilver Calvillo MD CO2 [Moles/Vol] 26 mmol/L Normal 20-31 [facility] Comment on above: Performed By: #### B MP, IPF, CDP #### [facility] [address] [place], [place] [id number] Child Guidance Counselor: Wilver Calvillo MD Creatinine [Mass/Vol] 1.01 mg/dL High 0.50-0.90 [facility] Comment on above: Performed By: #### B MP, IPF, CDP #### [facility] [address] [place], [place] 85[address]483 Child Guidance Counselor: Wilver Calvillo MD GFR, Amer >60 Normal >60 [facility] Comment on above: Performed By: #### B MP, IPF, CDP #### [facility] [address] [place], [place] [address] Child Guidance Counselor: Wilver Calvillo MD GFR,non Amer 54 mL/min Low >60 [facility] Comment on above: Performed By: #### B MP, IPF, CDP #### [facility] [address] [place], [place] [phone] Child Guidance Counselor: Wilver Calvillo MD Glucose [Mass/Vol] 102 mg/dL High 70-99 [facility] Comment on above: Performed By: #### B MP, IPF, CDP #### [facility] [address] [place], [place] [address]183 Child Guidance Counselor: Wilver Calvillo MD Potassium [Moles/Vol] 4.1 mmol/L Normal 3.7-5.3 [facility] Comment on above: Performed By: #### B SUKHJINDER ISABEL, CDP #### [facility] [address] [place], [place] [address] Child Guidance Counselor: Wilver Calvillo MD Sodium [Moles/Vol] 141 mmol/L Normal 135-144 [facility] Comment on above: Performed By: #### B SUKHJINDER ISABEL, CDP #### [facility] [address] [place] [address] Child Guidance Counselor: Wilver Calvillo MD Staging: Normal [facility] Comment on above: Result Comment: Stag e 1: Some kidney damage normal GFR Stage 2: Mild kidney damage GFR 60-89 Stage 3: Moderate kidney damage GFR 30-59 Stage 4: Severe kidney damage GFR 15-29 Stage 5: Severe kidney damage GFR <15 ESRD - chronic treatment by dialysis or transplant Performed By: #### B SUKHJINDER ISABEL, CDP #### [facility] [address] [place] [address] [place] [address] Child Guidance Counselor: Wilver Calvillo MD Urea nitrogen [Mass/Vol] 32 mg/dL High 8-23 [facility] Comment on above: Performed By: #### B SUKHJINDER ISABEL, CDP #### [facility] [address] [place] [address] [place] [address] Child Guidance Counselor: Wilver Calvillo MD CBC Auto Differentialon 03-0 Absolute Eos # 0.26 [facility] th Absolute Immature Granulocyte <0.03 [facility] Absolute Lymph # 1.09 Low [facility] He alth Absolute [place] # 0.54 [facility] Hea lth Basophils (Bld) [#/Vol] 0.05 10*3/uL [facility] Basophils/100 WBC (Bld) 1 % 0 - 2 % [facility] Eosinophils/100 WBC (Bld) 4 % 1 - 4 % [facility] Hematocrit (Bld) [Volume fraction] 40.2 % 36.3 - 47.1 % [facility] Hemoglobin.gastroint estinal spec 1 Ql (Stl) 12.3 g/dL 11.9 - 15.1 g/dL [facility] Immature granulocytes/100 WBC (Bld) 0 % 0 [facility] Interpretation and review of laboratory results Abnormal [facility] Lymphocytes/100 WBC (Bld) 18 % Low 24 - 43 % [facility] MCH (RBC) [Entitic mass] 29.4 pg 25.2 - 33.5 pg [facility] MCHC (RBC) [Mass/Vol] 30.6 g/dL 28.4 - 34.8 g/dL [facility] MCV (RBC) [Entitic vol] 95.9 fL 82.6 - 102.9 fL [facility] Monocytes/100 WBC (Bld) 9 % 3 - 12 % [facility] NRBC Automated 0.0 0.0 per 100 WBC [facility] Platelet distribution width (Bld) [Ratio] 12.5 % 11.8 - 14.4 % [facility] Platelets (Bld) [#/Vol] See Reflexed IPF Result [facility] RBC (Bld) [#/Vol] 4.19 10*6/uL 3.95 - 5.1 1 m/uL [facility] Segmented neutrophils/100 WBC (Bld) 69 % High 36 - 65 % [facility] Segs Absolute 4.26 [facility] ([facility]ld) [#/Vol] 6.2 10*3/uL [facility][Note 3] CBC with Diffon 07-23-2021 Abs. Basophil 0.05 k/uL Normal 0.00-0.20 [facility] Comment on above: Performed By: #### B MAAME IPF, CDP #### [facility] [address] [place] [address] Child Guidance Counselor: Wilver Calvillo MD Abs.Imm.Granulocyte <0.03 Normal 0.00-0.30 [facility] Comment on above: Performed By: #### B MAAME, IPF, CDP #### [facility] [address] [place] [address] Child Guidance Counselor: Wilver Calvillo MD Abs.Neutrophil (Seg) 4.26 k/uL Normal 1.50-8.10 [facility] Comment on above: Performed By: #### B MP, IPF, CDP #### [facility] [address] [place] [address] [place] [place], [place] [address] Child Guidance Counselor: Wilver Calvillo MD Basophils/100 WBC (Bld) 1 % Normal 0-2 [facility] Comment on above: Performed By: #### B MP, IPF, CDP #### [facility] [address] [place], [facility] Child Guidance Counselor: Wilver Calvillo MD Eosinophils (Bld) [#/Vol] 0.26 10*3/uL Normal 0.00-0.44 [facility] Comment on above: Performed By: #### B MP, IPF, CDP #### [address] [place], [facility] Child Guidance Counselor: Wilver Calvillo MD Eosinophils/100 WBC (Bld) 4 % Normal 1-4 [facility] Comment on above: Performed By: #### B MP, IPF, CDP #### [address] [place], [facility] Child Guidance Counselor: Wilver Calvillo MD Erythrocyte distribution width (RBC) [Ratio] 12.5 % Normal 11.8-14.4 [facility] Comment on above: Performed By: #### B MP, IPF, CDP #### [address] [place], [facility] Child Guidance Counselor: Wilver Calvillo MD Hematocrit (Bld) [Volume fraction] 40.2 % Normal 36.3-47.1 [facility] Comment on above: Performed By: #### B MP, IPF, CDP #### [address] [place], [facility] Child Guidance Counselor: Wilver Calvillo MD Hemoglobin (Bld) [Mass/Vol] 12.3 g/dL Normal 11.9-15.1 [facility] Comment on above: Performed By: #### B MP, IPF, CDP #### [facility] [address] [place], [place] [phone] Child Guidance Counselor: Wilver Calvillo MD Immature granulocytes/100 WBC (Bld) 0 % Normal 0 [facility] Comment on above: Performed By: #### B MP, IPF, CDP #### [facility] [address] [place], [place] [address] Child Guidance Counselor: Wilver Calvillo MD Lymphocytes (Bld) [#/Vol] 1.09 10*3/uL Low 1.10-3.70 [facility] Comment on above: Performed By: #### B MP, IPF, CDP #### [address] [place], [place] [phone] Child Guidance Counselor: Wilver Calvillo MD Lymphocytes/100 WBC (Bld) 18 % Low 24-43 [facility] Comment on above: Performed By: #### B MP, IPF, CDP #### [address] [place], [place] 3082183 Child Guidance Counselor: Wilver Calvillo MD MCH (RBC) [Entitic mass] 29.4 pg Normal 25.2-33.5 [facility] Comment on above: Performed By: #### B MAAME IPF, CDP #### [address] [place], [facility]83 Child Guidance Counselor: Wilver Calvillo MD MCHC (RBC) [Mass/Vol] 30.6 g/dL Normal 28.4-34.8 [facility] Comment on above: Performed By: #### B MP, IPF, CDP #### [address] [place] [address] Child Guidance Counselor: Wilver Calvillo MD MCV (RBC) [Entitic vol] 95.9 fL Normal 82.6-102.9 [facility] Comment on above: Performed By: #### B MP, IPF, CDP #### [facility] [address] [place], [place] [phone] Child Guidance Counselor: Wilver Calvillo MD Monocytes (Bld) [#/Vol] 0.54 10*3/uL Normal 0.10-1.20 [facility] Comment on above: Performed By: #### B MP, IPF, CDP #### [facility] [address] [place], [place] [phone] Child Guidance Counselor: Wilver Calvillo MD Monocytes/100 WBC (Bld) 9 % Normal 3-12 [facility] Comment on above: Performed By: #### B MP, IPF, CDP #### [facility] [address] [place], [place] [phone] Child Guidance Counselor: Wilver Calvillo MD Neutrophil (Seg) 69 % High 36-65 [facility] Comment on above: Performed By: #### B MP, IPF, CDP #### [facility] [address] [place] [address] [place] [place], [place] [phone] Child Guidance Counselor: Wilver Calvillo MD NRBC Automated 0.0 per 100 WBC Normal 0.0 [facility] Comment on above: Performed By: #### B MP, IPF, CDP #### [address] [place], [place] [address]83 Child Guidance Counselor: Wilver Calvillo MD Platelet Count See Reflexed IPF Result Normal 138-453 [facility] Comment on above: Performed By: #### B MP, IPF, CDP #### [facility] [address] [place], [place] [phone] Child Guidance Counselor: Wilver Calvillo MD RBC (Bld) [#/Vol] 4.19 10*6/uL Normal 3.95-5.11 [facility] Comment on above: Performed By: #### B MP, IPF, CDP #### [facility] [address] [place], [place] [address]83 Child Guidance Counselor: Wilver Calvillo MD WBC (Bld) [#/Vol] 6.2 10*3/uL Normal 3.5-11.3 [facility] Comment on above: Performed By: #### B MP, IPF, CDP #### [facility] [address] [place], [place] 2288383 Child Guidance Counselor: Wilver Calvillo MD EKG 12 LeadOrdered By: Steve Wilson on 07-23-2021 Atrial Rate 69 BPM [employer] Work Phone: P Kountze 64 degrees [employer] Work Phone: P-R Interval 130 ms [employer] Work Phone: Q-T Interval 366 ms [employer] Work Phone: QRS Duration 82 ms [employer] Work Phone: QTc Calculation (Bazett) 392 ms [employer] Work Phone: R Kountze 27 degrees [employer] Work Phone: T Kountze 34 degrees [employer] Work Phone: Ventricular Rate 69 BPM [employer] Work Phone: [employer] Work Phone: EKG 12 Leadon 07-23-2021 Normal sinus rhythm Possible Left atrial enlargement Borderline ECG When compared with ECG of 16-MAR-2016 09:54, No significant change was found Confirmed by MONI WILSON ([id number]) on 07/23/2021 1:56:02 PM [facility] Moni Wilson MD - 07/23/2021 Normal sinus rhythm Possible Left atrial enlargement Borderline ECG When compared with ECG of 16-MAR-2016 09:54, No significant change was found Confirmed by MONI WILSON ([id number]) on 07/23/2021 1:56:02 PM [employer] Work Phone: Immature Platelet Fractionon 07-23-2021 Interpretation and review of laboratory results Abnormal [employer] Platelet, Fluorescence 133 Low [facility] Platelet, Immature Fraction 3.7 % 1.1 - 10.3 % [facility][Note 3] Laboratory - Chemistry and C hemistry - challengeon 07-23-2021 GFR/1.73 sq M.predicted MDRD (S/P/Bld) [Vol rate/Area] [facility] Comment on above: Average GFR for 70 o r more years old: 75 mL/min/1.73sq m Chronic Kidney Disease: <60 mL/min/1.73sq m Kidney failure: <15 mL/min/1.73sq m eGFR calculated using average adult body mass. Additional eGFR calculator available at: http://www.[employer]ise Intervention [email or web address] Stage 1: Some kidney damage normal GFR Stage 2: Mild kidney damage GFR 60-89 Stage 3: Moderate kidney damage GFR 30-59 Stage 4: Severe kidney damage GFR 15-29 Stage 5: Severe kidney damage GFR <15 ESRD - chronic treatment by dialysis or transplant PLT, Immature Fract.on 07-23 Platelet, Fluoresc. 133 k/uL Low 138-453 [facility] Comment on above: Performed By: #### B MP IPF, CDP #### [facility] [address] [place] [address] Child Guidance Counselor: Wilver Calvillo MD PLT, Immature Fract. 3.7 % Normal 1.1-10.3 [facility] Comment on above: Performed By: #### B MP IPF, CDP #### [facility] [address] [place] [address] Child Guidance Counselor: Wliver Calvillo MD Cult,Urineon 04-08-2021 Cult,Urine Specimen Description .CLEAN CATCH URINE Special Requests NOT REPORTED Culture NO SIGNIFICANT GROWTH Report Status FINAL 04/08/2021 Normal [facility] Comment on above: Performed By: #### U RC #### [id number] [place] [address] Child Guidance Counselor: Beto Farah MD [facility] [address] [place] [address] Child Guidance Counselor: Wilver Calvillo MD Urinalysis w/ Microon 2020 ----- Normal [facility] Comment on above: Performed By: #### U AMIC #### [facility] [address] [place], [place] [phone] Child Guidance Counselor: Wilver Calvillo MD Bilirubin, SemiQt,Ur Negative Normal NEG [facility] Comment on above: Performed By: #### U AMIC #### [facility] [address] [place], [place] [id number] Child Guidance Counselor: Wilver Calvillo MD Blood, Urine Negative Normal NEG [facility] Comment on above: Performed By: #### U AMIC #### [facility] [address] [place] [address] [address]. [place], [place] [phone] Child Guidance Counselor: Wilver Calvillo MD Clarity (U) Clear Normal CLEAR [facility] Comment on above: Performed By: #### U AMIC #### [facility] [address] [place], [place] [id number] Child Guidance Counselor: Wilver Calvillo MD Color (U) Yellow Normal YEL [facility] Comment on above: Performed By: #### U AMIC #### [facility] [address] [place], [place] [phone] Child Guidance Counselor: Wilver Calvillo MD Epithelial cells LM Ql (Urine sed) None Normal 0-25 [facility] Comment on above: Performed By: #### U AMIC #### [facility] [address] [place], [place] [phone] Child Guidance Counselor: Wilver Calvillo MD Glucose Ql (U) Negative Normal NEG [facility] Comment on above: Performed By: #### U AMIC #### [facility] [address] [place], [place] [id number] Child Guidance Counselor: Wilver Calvillo MD Ketones Ql (U) TRACE Abnormal NEG [facility] Comment on above: Performed By: #### U AMIC #### [facility] [address] [place], [place] [phone] Child Guidance Counselor: Wilver Calvillo MD Leukocyte esterase Test strip Ql (U) Negative Normal NEG [facility] Comment on above: Performed By: #### U AMIC #### [facility] [address] [place], [place] [phone] Child Guidance Counselor: Wilver Calvillo MD Nitrite,Ur Negative Normal NEG [facility] Comment on above: Performed By: #### U AMIC #### [address] [place] [phone] Child Guidance Counselor: Wilver Calvillo MD PH,Ur 6.0 Normal 5.0-9.0 [facility] Comment on above: Performed By: #### U AMIC #### [address] [place] [phone] Child Guidance Counselor: Wilver Calvillo MD Protein Ql (U) Negative Normal NEG [facility] Comment on above: Performed By: #### U AMIC #### [address] [place], [place] [phone] Child Guidance Counselor: Wilver Calvillo MD Spec. [place],Ur 1.025 High 1.010-1.020 [facility] Comment on above: Performed By: #### U AMIC #### [facility] [address] [place] [phone] Child Guidance Counselor: Wilver Calvillo MD Urine RBC's None Normal 0-2 [facility] Comment on above: Performed By: #### U AMIC #### [facility] [address] [place], [place] [phone] Child Guidance Counselor: Wilver Calvillo MD Urine WBC's 0 TO 2 Normal 0-5 [facility] Comment on above: Performed By: #### U AMIC #### [facility] [address] [place], [place] [phone] Child Guidance Counselor: Wilver Calvillo MD Urobilinogen,Ur Normal Normal NORM [facility] Comment on above: Performed By: #### U AMIC #### [facility] [address] [place], [place] [id number] Child Guidance Counselor: Wilver Calvillo MD Amorphous sediment LM Ql (Urine sed) NOT REPORTED Normal NONE [facility] Comment on above: Performed By: #### U AMIC #### [facility] [address] [place], [place] 6[address]83 Child Guidance Counselor: Wilver Calvillo MD Bacteria NOT REPORTED Normal [facility] Comment on above: Performed By: #### U AMIC #### [facility] [address] [place], [place] [phone] Child Guidance Counselor: Wilver Calvillo MD Casts NOT REPORTED Normal [facility] Comment on above: Performed By: #### U AMIC #### [facility] [address] [place], [place] [phone] Child Guidance Counselor: Wilver Calvillo MD Comment NOT REPORTED Normal [facility] Comment on above: Performed By: #### U AMIC #### [facility] [address] [place], [place] [phone] Child Guidance Counselor: Wilver Calvillo MD Crystals LM Nom (Urine sed) NOT REPORTED Normal [facility] Comment on above: Performed By: #### U AMIC #### [facility] [address] [place], [place] [phone] Child Guidance Counselor: Wilver Calvillo MD Epithelial, Renal NOT REPORTED Normal 0 [facility] Comment on above: Performed By: #### U AMIC #### [facility] [address] [place], [place] [phone] Child Guidance Counselor: Wilver Calvillo MD Mucus Strands NOT REPORTED Normal [facility] Comment on above: Performed By: #### U AMIC #### [facility] [address] [place] [address] Child Guidance Counselor: Wilver Calvillo MD Other Observations NOT REPORTED Normal NREQ [facility] Comment on above: Performed By: #### U AMIC #### [facility] [address] [place] [address] Child Guidance Counselor: Wilver Calvillo MD Trichomonas NOT REPORTED Normal NONE [facility] Comment on above: Performed By: #### U AMIC #### [facility] [address] [place] [address] Child Guidance Counselor: Wilver Calvillo MD Yeast NOT REPORTED Normal [facility] Comment on above: Performed By: #### U AMIC #### [facility] [address] [place] [address] Child Guidance Counselor: Wilver Calvillo MD Urinalysis With Microscopico n 2019 Amorphous, UA NOT REPORTED None [facility], [place] Bacteria, UA NOT REPORTED None [facility], [place] Bilirubin Urine Negative NEGATIVE [facility], [place] Casts UA NOT REPORTED /LPF [facility], [place] Color, UA YELLOW YELLOW [facility], [place] Crystals, UA NOT REPORTED None /HPF [facility]- [place], [place] Epithelial Cells UA 0 TO 2 [facility], [place] Glucose, Ur Negative NEGATIVE [facility], [place] Interpretation and review of laboratory results Abnormal [facility], [place] Ketones Ql (U) TRACE Abnormal NEGATIVE [facility]- [place], [place] Leukocyte esterase Test strip Ql (U) MODERATE Abnormal NEGATIVE [facility]- [place] Mucus, UA NOT REPORTED None [facility], [place] Nitrite, Urine Negative NEGATIVE [facility]- [place] Other Observations UA NOT REPORTED NOT REQ. [facility]- [place] pH, UA 5.5 [facility]- [place] Protein (U) [Mass/Vol] Negative NEGATIVE [facility]- [place], [place] RBC (U) [#/Vol] 0 TO 2 [facility] [place], [place] Renal Epithelial, UA NOT REPORTED 0 /HPF [place], [place] Specific [place], UA >1.030 [place], [place] Trichomonas, UA NOT REPORTED None [place] Turbidity UA CLEAR CLEAR [place] Urinalysis Comments NOT REPORTED [place], [place] Urine Hgb Negative NEGATIVE [place] Urobilinogen, Urine Normal Normal [place], [place] WBC, UA 5 TO 10 [place], [place] Yeast, UA NOT REPORTED None [place] - [place] Otheron 02-24-2019 Unremarkable bowel-gas pattern. Indeterminate right upper quadrant calcification most likely reflects cholelithiasis, as seen on prior CT. Possible calculus versus vascular calcification overlying the left renal shadow. No stone at this level on CT 1 year ago. [place], [place] EXAMINATION: ONE SUPINE XRAY VIEW(S) OF THE ABDOMEN 02/24/2019 2:30 pm COMPARISON: CT abdomen 02/27/2018 HISTORY: ORDERING SYSTEM PROVIDED HISTORY: Renal stones TECHNOLOGIST PROVIDED HISTORY: renal stone FINDINGS: 2 images are presented. Unremarkable bowel gas pattern. Nonspecific approximately 12 x 15 mm stippled calcification overlying the right upper quadrant could reflect gallstones, upper pole renal calculus or lymph node. Approximate 2 mm calcific density overlies the inferior left renal shadow. No unusual abdominal or pelvic soft tissue or calcific density is seen. Visualized osseous structures appear unremarkable. Stimulator power pack is noted over the right iliac wing, lead overlying the inferior right sacrum. [place], [place], [employer] Incoming Radiant Results From [employer] - 02/24/2019 3:08 PM EDT EXAMINATION: ONE SUPINE XRAY VIEW(S) OF THE ABDOMEN 02/24/2019 2:30 pm COMPARISON: CT abdomen 02/27/2018 HISTORY: ORDERING SYSTEM PROVIDED HISTORY: Renal stones TECHNOLOGIST PROVIDED HISTORY: renal stone FINDINGS: 2 images are presented. Unremarkable bowel gas pattern. Nonspecific approximately 12 x 15 mm stippled calcification overlying the right upper quadrant could reflect gallstones, upper pole renal calculus or lymph node. Approximate 2 mm calcific density overlies the inferior left renal shadow. No unusual abdominal or pelvic soft tissue or calcific density is seen. Visualized osseous structures appear unremarkable. Stimulator power pack is noted over the right iliac wing, lead overlying the inferior right sacrum. IMPRESSION: Unremarkable bowel-gas pattern. Indeterminate right upper quadrant calcification most likely reflects cholelithiasis, as seen on prior CT. Possible calculus versus vascular calcification overlying the left renal shadow. No stone at this level on CT 1 year ago. [place] Urinalysis with Microscopico n 01-06-2019 Amorphous, UA NOT REPORTED None [place] Bacteria, UA NOT REPORTED None [place], [place] Bilirubin Urine Negative NEGATIVE [place] Casts UA NOT REPORTED /LPF [place] Color, UA YELLOW YELLOW [place] Crystals UA NOT REPORTED None /HPF [place] Epithelial Cells UA 0 TO 2 [place], [place] Glucose, Ur Negative NEGATIVE [place] Interpretation and review of laboratory results Abnormal [place], [place] Ketones Ql (U) Negative NEGATIVE [place] Leukocyte esterase Test strip Ql (U) SMALL Abnormal NEGATIVE [place], [place] Mucus, UA NOT REPORTED None [place] Nitrite, Urine Negative NEGATIVE [place] Other Observations UA NOT REPORTED NOT REQ. [place] pH, UA 5.5 [place] Protein (U) [Mass/Vol] Negative NEGATIVE [place] RBC (U) [#/Vol] 0 TO 2 [place] Renal Epithelial, Urine NOT REPORTED 0 /HPF [place], [place] Specific [place], UA 1.020 [place], [place] Trichomonas, UA NOT REPORTED None [facility] [place] Turbidity UA CLEAR CLEAR [place] Urinalysis Comments NOT REPORTED [place], [place] Urine Hgb Negative NEGATIVE [place] Urobilinogen, Urine Normal Normal [place], [place] WBC, UA 2 TO 5 [place], [place] Yeast, UA NOT REPORTED None [place] - [place] Vital Signs Date Time Vital Sign Value Performing Clinician Facility 03-23-2023 19:08-0400 Heart rate 77 /min Dee Mireles [employer] Work Phone: [facility] 03-23-2023 10:41-0400 Body height 154.9 cm Dee Mireles CHAINST[employer] B[employer]PER[employer] Work Phone: [facility] 03-23-2023 10:41-0400 Body mass index (BMI) [Ratio] 30.04 kg/m2 Dee Mireles CHAINSTITCH B[employer]SUPER[employer] Work Phone: [facility] 03-23-2023 10:41-0400 Body temperature 98.01 [degF] Dee Mireles CH[employer]STITCH B[employer]PER[employer] Work Phone: [facility] 03-23-2023 10:41-0400 Body weight 72.12 kg Dee Mireles CH[employer]STITCH B[employer]PER[employer] Work Phone: [facility] 03-23-2023 10:41-0400 Diastolic blood pressure 67 mm[Hg] Dee Mireles [employer]STITCH B[employer]PER[employer] Work Phone: [facility] 03-23-2023 10:41-0400 Heart rate 79 /min Dee Mireles CHAINSTITCH B[employer]ER[employer]PER[employer] Work Phone: [facility] 03-23-2023 10:41-0400 Respiratory rate 12 /min Dee Mireles CHAINSTITCH B[employer]ER[employer]PER[employer]OR [employer] Work Phone: [facility] 03-23-2023 10:41-0400 SaO2% (BldA) [Mass fraction] 100 % Dee Mireles CHAINSTITCH B[employer]ER-SUPER[employer]OR [employer] Work Phone: [facility] 03-23-2023 10:41-0400 Systolic blood pressure 123 mm[Hg] Dee Mireles CHAINSTITCH B[employer]ER-SUPER[employer]OR [employer] Work Phone: [facility] 11-10-2022 09:57-0400 Diastolic blood pressure 72 mm[Hg] Gerry Rosalino [facility] 11-10-2022 09:57-0400 Heart rate 68 /min Gerry Rosalino [facility] 11-10-2022 09:57-0400 Mean blood pressure 98 mm[Hg] Gerry Jerry [facility] 11-10-2022 09:57-0400 Respiratory rate 16 /min Gerry Jerry [facility] 11-10-2022 09:57-0400 Systolic blood pressure 150 mm[Hg] Gerry Jerry [facility] 06-16-2022 13:42-0500 Diastolic blood pressure 75 mm[Hg] Janie Henning [facility] 06-16-2022 13:42-0500 Heart rate 65 /min Janie Henning [facility] 06-16-2022 13:42-0500 Mean blood pressure 97 mm[Hg] Janie Henning [facility] 06-16-2022 13:42-0500 Respiratory rate 18 /min Janie Henning [facility] 06-16-2022 13:42-0500 Systolic blood pressure 140 mm[Hg] Janie Henning [facility] 05-19-2022 12:15-0500 Diastolic blood pressure 82 mm[Hg] Geri Vergara [facility] 05-19-2022 12:15-0500 Heart rate 62 /min Geri Vergara [facility] 05-19-2022 12:15-0500 Mean blood pressure 95 mm[Hg] Geri Vergara [facility] 05-19-2022 12:15-0500 Respiratory rate 18 /min Geri Vergara [facility] 05-19-2022 12:15-0500 Systolic blood pressure 120 mm[Hg] Geri Vergara [facility] 08-05-2021 16:30-0400 Diastolic blood pressure 76 mm[Hg] Sandra Alvarenga MD Work Phone: [facility] 08-05-2021 16:30-0400 Heart rate 71 /min Sandra Alvarenga MD Work Phone: [facility] 08-05-2021 16:30-0400 Respiratory rate 18 /min Sandra Alvarenga MD Work Phone: [facility] 08-05-2021 16:30-0400 SaO2% (BldA) [Mass fraction] 98 % Sandra Alvarenga MD Work Phone: [facility] 08-05-2021 16:30-0400 Systolic blood pressure 148 mm[Hg] Sandra Alvarenga MD Work Phone: [facility] 08-05-2021 15:50-0400 Body temperature 98.1 [degF] Sandra Alvarenga MD Work Phone: [facility] 08-05-2021 12:44-0400 Body height 154.9 cm Sandra Alvarenga MD Work Phone: [facility] 08-05-2021 12:44-0400 Body mass index (BMI) [Ratio] 30.12 kg/m2 Sandra Alvarenga MD Work Phone: [employer] [facility] 08-05-2021 12:44-0400 Body weight 72.3 kg Sandra Alvarenga MD Work Phone: [employer] [facility] 07-23-2021 09:04-0500 Body height 154.9 cm Sandra Alvarenga MD Work Phone: [employer] 07-23-2021 09:04-0500 Body mass index (BMI) [Ratio] 30.89 kg/m2 Sandra Alvarenga MD Work Phone: [employer] 07-23-2021 09:04-0500 Body temperature 97.11 [degF] Sandra Alvarenga MD Work Phone: [employer] 07-23-2021 09:04-0500 Body weight 74.16 kg Sandra Alvarenga MD Work Phone: [employer] 07-23-2021 09:04-0500 Diastolic blood pressure 73 mm[Hg] Sandra Alvarenga MD Work Phone: [employer] 07-23-2021 09:04-0500 Heart rate 77 /min Sandra Alvarenga MD Work Phone: [employer] 07-23-2021 09:04-0500 Respiratory rate 20 /min Sandra Alvarenga MD Work Phone: [employer] 07-23-2021 09:04-0500 SaO2% (BldA) [Mass fraction] 99 % Sandra Alvarenga MD Work Phone: [employer] 07-23-2021 09:04-0500 Systolic blood pressure 151 mm[Hg] Sandra Alvarenga MD Work Phone: [employer] 04-10-2020 16:39-0500 BMI (Body Mass Index) 33.25 kg/m2 SellplexkelbyDesmosAlemanAmbiq [employer] [facility] 04-10-2020 16:39-0500 Body weight 79.83 kg SellplexkelbyDesmosAlemanAmbiq Micro [facility] 04-10-2020 16:39-0500 BP Diastolic 76 mm[Hg] [employer] [facility] 04-10-2020 16:39-0500 BP Systolic 130 mm[Hg] [employer] [facility] 04-10-2020 16:39-0500 BSA (Body Surface Area) 1.85 m2 TechflakesGBkatherine AlemanAmbiq Micro [facility] 04-10-2020 16:39-0500 Height 154.94 cm Incline TherapeuticsncAmbiq Micro [facility] 04-10-2020 16:39-0500 Pulse (Heart Rate) 88 /min Vladimir [facility] 01-09-2020 16:05-0400 BMI (Body Mass Index) 33.82 kg/m2 Vladimir ArshadAFINOSkatherine [employer] 01-09-2020 16:05-0400 Body Temperature 98.4 [degF] Vladimir Martínez[employer]bar 01-09-2020 16:05-0400 Body weight 81.19 kg Vladimir Greco [employer] 01-09-2020 16:05-0400 BP Diastolic 62 mm[Hg] Vladimir [employer] 01-09-2020 16:05-0400 BP Systolic 114 mm[Hg] Vladimir [employer] 01-09-2020 16:05-0400 BSA (Body Surface Area) 1.87 m2 Vladimir [employer] 01-09-2020 16:05-0400 Height 154.94 cm Vladimir [employer] 01-09-2020 16:05-0400 Pulse (Heart Rate) 76 /min Vladimir Aleman [employer] [facility] 07-11-2019 16:08-0500 BMI (Body Mass Index) 35.01 kg/m2 Vladimir Emot[employer] [facility] 07-11-2019 16:08-0500 Body Temperature 98.7 [degF] [employer] 07-11-2019 16:08-0500 Body weight 84.06 kg Vladimir [employer] 07-11-2019 16:08-0500 BP Diastolic 72 mm[Hg] [employer] 07-11-2019 16:08-0500 BP Systolic 126 mm[Hg] Vladimir MartínezJybe 07-11-2019 16:08-0500 BSA (Body Surface Area) 1.9 m2 Vladimir Aleman [employer] 07-11-2019 16:08-0500 Height 154.94 cm Vladimir ArshadKnoa SoftwarencJybe 07-11-2019 16:08-0500 Pulse (Heart Rate) 72 /min Vladimir Vaddio Aleman Dee Dee sanchezy [employer] 11-29-2018 18:22-0400 BMI (Body Mass Index) 34.39 kg/m2 Vladimir ChristopherBad Juju Games[employer] AlemanJybe 11-29-2018 18:22-0400 Body Temperature 97.9 [degF] Vladimir Phillips [employer] 11-29-2018 18:22-0400 Body weight 82.56 kg Vladimir ArshadKnoa SoftwarencJybe 11-29-2018 18:22-0400 BP Diastolic 70 mm[Hg] Vladimir ChristopherBad Juju Games[employer] AlemanJybe 11-29-2018 18:22-0400 BP Systolic 140 mm[Hg] Vladimir EzeecubencJybe 11-29-2018 18:22-0400 BSA (Body Surface Area) 1.88 m2 Vladimir EzeecubencJybe 11-29-2018 18:22-0400 BSA (Body Surface Area) 1.89 m2 Vladimir EzeecubencJybe 11-29-2018 18:22-0400 Height 154.94 cm Vladimir EzeecubencJybe 11-29-2018 18:22-0400 Pulse (Heart Rate) 80 /min Vladimir Funez [employer] 05-31-2018 17:44-0500 BMI (Body Mass Index) 32.94 kg/m2 Vladimir ArshadAFINOSkatherine MartínezAlemanJybe 05-31-2018 17:44-0500 Body Temperature 98.2 [degF] Vladimir ArshadIngagePatient AlemanBitbar 05-31-2018 17:44-0500 Body weight 79.07 kg Vladimir JeancarlosIngagePatient Aleman[employer] 05-31-2018 17:44-0500 BP Diastolic 68 mm[Hg] [employer] 05-31-2018 17:44-0500 BP Systolic 118 mm[Hg] Vladimir [employer] 05-31-2018 17:44-0500 BSA (Body Surface Area) 1.84 m2 Incline TherapeuticsncJybe 05-31-2018 17:44-0500 Height 154.94 cm Vladimir ArshadKnoa SoftwarencJybe 05-31-2018 17:44-0500 Pulse (Heart Rate) 80 /min Vladimir Funez [employer] 02-01-2018 17:15-0400 BMI (Body Mass Index) 32.31 kg/m2 [employer] 02-01-2018 17:15-0400 Body Temperature 98.5 [degF] [employer] Therapeuticsnc[employer]bar 02-01-2018 17:15-0400 Body weight 77.57 kg [employer] 02-01-2018 17:15-0400 BP Diastolic 88 mm[Hg] Vladimir ArshadKnoa SoftwarencJybe 02-01-2018 17:15-0400 BP Systolic 134 mm[Hg] Vladimir ArshadKnoa SoftwarencJybe 02-01-2018 17:15-0400 BSA (Body Surface Area) 1.83 m2 Vladimir EzeecubencJybe 02-01-2018 17:15-0400 Height 154.94 cm [employer] 02-01-2018 17:15-0400 Pulse (Heart Rate) 76 /min Vladimir Vaddio Aleman[employer] 07-28-2017 17:14-0500 BMI (Body Mass Index) 32.31 kg/m2 [employer] 07-28-2017 17:14-0500 Body Temperature 99.2 [degF] Vladimir Vaddio AlemanBitbar 07-28-2017 17:14-0500 Body weight 77.57 kg Vladimir [employer] 07-28-2017 17:14-0500 BP Diastolic 78 mm[Hg] [employer] 07-28-2017 17:14-0500 BP Systolic 128 mm[Hg] [employer] 07-28-2017 17:14-0500 BSA (Body Surface Area) 1.83 m2 [employer] 07-28-2017 17:14-0500 Height 154.94 cm [employer] 07-28-2017 17:14-0500 Pulse (Heart Rate) 68 /min [employer] AlemanLes[employer] 11-11-2016 18:39-0400 BMI (Body Mass Index) 34.11 kg/m2 Vladimir Aleman [employer] 11-11-2016 18:39-0400 Body Temperature 98.1 [degF] Vladimir Aleman [employer] 11-11-2016 18:39-0400 Body weight 82.56 kg Vladimir MartínezJybe 11-11-2016 18:39-0400 BP Diastolic 70 mm[Hg] Vladimir EzeecubencJybe 11-11-2016 18:39-0400 BP Systolic 138 mm[Hg] Vladimir ChristopherBad Juju Games[employer] AlemanJybe 11-11-2016 18:39-0400 BSA (Body Surface Area) 1.89 m2 Vladimir FinestrellakelbyBad Juju Games, Inc[employer] AlemanJybe 11-11-2016 18:39-0400 Height 155.57 cm Vladimir EzeecubencJybe 11-11-2016 18:39-0400 Pulse (Heart Rate) 88 /min Vladimir sanchezBloc 05-13-2016 18:05-0500 BMI (Body Mass Index) 34.48 kg/m2 Vladimir Greco AlemanJybe 05-13-2016 18:05-0500 Body Temperature 98.4 [degF] Vladimir Vaddio Aleman [employer] 05-13-2016 18:05-0500 Body weight 83.46 kg Vladimir ChristopherDesmosAlemanJybe 05-13-2016 18:05-0500 BP Diastolic 64 mm[Hg] Vladimir EzeecubencJybe 05-13-2016 18:05-0500 BP Systolic 118 mm[Hg] Vladimir MartínezJybe 05-13-2016 18:050500 BSA (Body Surface Area) 1.9 m2 Vladimir MartínezJybe 05-13-2016 18:050500 Height 155.57 cm Vladimir ArshadIngagePatient AlemanJybe 05-13-2016 18:05-0500 Pulse (Heart Rate) 92 /min Vladimir Funez [employer] 08-13-2015 18:22-0400 BMI (Body Mass Index) 33.45 kg/m2 Vladimir Vaddio AlemanJybe 08-13-2015 18:22-0400 Body Temperature 98 [degF] Vladimir Vaddio Love [employer] 08-13-2015 18:22-0400 Body weight 80.97 kg Vladimir MartínezJybe 08-13-2015 18:22-0400 BP Diastolic 70 mm[Hg] Vladimir ArshadIngagePatient AlemanJybe 08-13-2015 18:22-0400 BP Systolic 124 mm[Hg] Vladimir Vaddio AlemanJybe 08-13-2015 18:22-0400 BSA (Body Surface Area) 1.87 m2 Vladimir ArshadAFINOSkatherine MartínezAlemanJybe 08-13-2015 18:220400 Height 155.57 cm Vladimir EzeecubencJybe 08-13-2015 18:22-0400 Pulse (Heart Rate) 76 /min Vladimir Funez [employer] 11-27-2014 18:35-0400 BMI (Body Mass Index) 33.93 kg/m2 Vladimir Heacock AlemanJybe 11-27-2014 18:35-0400 Body Temperature 97.3 [degF] Vladimir MartínezBitbar 11-27-2014 18:35-0400 Body weight 83.46 kg Vladimir ChristopherDesmosAlemanJybe 11-27-2014 18:35-0400 BP Diastolic 66 mm[Hg] Vladimir [employer] 11-27-2014 18:35-0400 BP Systolic 108 mm[Hg] [employer] 11-27-2014 18:35-0400 BSA (Body Surface Area) 1.91 m2 Incline TherapeuticsncJybe 11-27-2014 18:35-0400 Height 156.84 cm [employer] 11-27-2014 18:35-0400 Pulse (Heart Rate) 88 /min Vladimir Vaddio Love sanchezBloc 05-29-2014 18:26-0500 BMI (Body Mass Index) 37.61 kg/m2 Vladimir EzeecubencJybe 05-29-2014 18:26-0500 Body Temperature 97.5 [degF] Vladimir ArshadIngagePatient AlemanBitbar 05-29-2014 18:26-0500 Body weight 92.53 kg Element ID 05-29-2014 18:26-0500 BP Diastolic 72 mm[Hg] Element ID 05-29-2014 18:26-0500 BP Systolic 128 mm[Hg] Element ID 05-29-2014 18:26-0500 BSA (Body Surface Area) 2.01 m2 Vladimir EzeecubencJybe 05-29-2014 18:26-0500 Height 156.84 cm Vladimir EzeecubencJybe 05-29-2014 18:26-0500 Pulse (Heart Rate) 66 /min Vladimir dbTwangkatherien Funez [employer] 06-12-2013 16:34-0500 BMI (Body Mass Index) 34.02 kg/m2 Element ID 06-12-2013 16:34-0500 Body Temperature 98.6 [degF] [employer] AlemanBitbar 06-12-2013 16:34-0500 Body weight 83.69 kg Vladimir [employer] 06-12-2013 16:34-0500 BP Diastolic 64 mm[Hg] Element ID 06-12-2013 16:34-0500 BP Systolic 112 mm[Hg] Element ID 06-12-2013 16:34-0500 BSA (Body Surface Area) 1.91 m2 Vladimir [employer] 06-12-2013 16:34-0500 Height 156.84 cm Vladimir EzeecubencJybe 06-12-2013 16:34-0500 Pulse (Heart Rate) 76 /min Vladimir Vaddio [employer] 12-12-2012 18:33-0400 BMI (Body Mass Index) 32.4 kg/m2 Element ID 12-12-2012 18:33-0400 Body Temperature 97.6 [degF] Vladimir ArshadKnoa Softwarenchard Jacqueline nelson Joust 12-12-2012 18:33-0400 Body weight 79.07 kg Vladimir EzeecubencJybe 12-12-2012 18:33-0400 BP Diastolic 80 mm[Hg] Element ID 12-12-2012 18:33-0400 BP Systolic 140 mm[Hg] Element ID 12-12-2012 18:33-0400 BSA (Body Surface Area) 1.85 m2 Element ID 12-12-2012 18:33-0400 Height 156.21 cm Element ID 12-12-2012 18:33-0400 Pulse (Heart Rate) 76 /min Vladimir Vaddio Aleman Dee Dee cuellar Joust Encounters Encounter Date Encounter Type Care Provider Facility Start: 06-17-2023 End: 06-18-2023 ambulatory UNKNOWN PROVIDER Facility:[facility] Start: 06-17-2023 End: 06-17-2023 Patient encounter procedure Geri Vergara MD Work Phone: [facility] Comment on above: Cervical spondylosis with myelopathy (Primary Dx) Start: 06-17-2023 End: 06-17-2023 Subsequent hospital visit by physician Op Xray 1 [facility] Radiology Comment on above: Cervical spondylosis with myelopathy Start: 05-04-2023 Telephone encounter Geri Vergara MD Work Phone: [facility] Comment on above: Health Information Start: 04-22-2023 End: 04-22-2023 ambulatory UNKNOWN PROVIDER Facility:[facility] Start: 04-22-2023 End: 04-22-2023 Patient encounter procedure Ortho Spine Rn [facility] Comment on above: Hx of cervical spine surgery (Primary Dx) Start: 04-09-2023 Telephone encounter Geri Vergara MD Work Phone: [facility] Comment on above: Health Information Start: 04-01-2023 Evaluation and manag ement of inpatient UNKNOWN PROVIDER Facility:[facility] Start: 03-31-2023 End: 04-03-2023 Evaluation and management of inpatient IP PHYSICAL THERAPY SERVICE REQUEST Facility:[facility] Start: 03-31-2023 End: 04-01-2023 ambulatory UNKNOWN PROVIDER Facility:[facility] Start: 03-31-2023 End: 03-31-2023 Subsequent hospital visit by physician Geri Vergara MD Work Phone: [facility] Rad[facility] Comment on above: Arrived Start: 03-25-2023 End: 03-26-2023 ambulatory Cooper Eller MD Facility:[facility] Start: 03-23-2023 End: 03-23-2023 ambulatory UNKNOWN PROVIDER Facility:[facility] Start: 03-23-2023 Encounter for other preprocedural examination [facility] Start: 03-23-2023 End: 03-23-2023 ambulatory UNKNOWN PROVIDER Facility:[facility] Start: 03-23-2023 End: 03-23-2023 Patient encounter procedure Dee Aline BURK-SUPERVISOR PAYROLL Work Phone: [facility] Pre Surgical Evaluation Comment on above: Preop testing (Prima ry Dx); 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); Other specified disorders of central nervous system; Body mass index (BMI) 30.0-30.9, adult Preop testing (Prima ry Dx); 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); Other specified disorders of central nervous system; Body mass index (BMI) 30.0-30.9, adult; Abnormal electrocardiogram (ECG) (EKG) Start: 03-23-2023 End: 03-23-2023 Patient encounter status Dee Aline CHAINSTITCH BINDER-SUPERVISOR PAYROLL Work Phone: [facility] Work Phone: Start: 03-23-2023 End: 03-24-2023 ambulatory UNKNOWN PROVIDER Facility:[facility] Start: 03-23-2023 End: 03-23-2023 Office outpatient visit 25 minutes Geri Vergara MD Work Phone: [facility] Comment on above: Cervical spondylosis with myelopathy (Primary Dx) Start: 03-23-2023 End: 03-23-2023 Subsequent hospital visit by physician Ip/Op Ct Scan Main 2(Edge) [facility] Rad[facility] CT Comment on above: Cervical spondylosis with myelopathy Start: 03-16-2023 End: 03-17-2023 ambulatory Cooper Eller MD Facility:[facility] Start: 02-15-2023 Admission to [facility] Geri Vergara MD Work Phone: [facility] Main OR Start: 02-11-2023 End: 02-11-2023 ambulatory UNKNOWN PROVIDER Facility:[facility] Start: 02-11-2023 End: 02-11-2023 Office outpatient visit 15 minutes Geri Vergara MD Work Phone: [facility] Comment on above: Cervical spondylosis with myelopathy (Primary Dx) Start: 01-30-2023 Letter encounter Geri Vergara MD Work Phone: [facility] Start: 12-24-2022 End: 12-24-2022 ambulatory UNKNOWN PROVIDER Facility:[facility] Start: 12-24-2022 End: 12-24-2022 Office outpatient visit 15 minutes Geri Vergara MD Work Phone: [facility] Comment on above: Cervical spondylosis with myelopathy (Primary Dx) Start: 11-23-2022 ambulatory LAKISHA LAKISHA G~[id number] BERYL CORDOBA Facility:[facility] Start: 11-23-2022 ambulatory LAKISHA LAKISHA G~06 [id number] BERYL CORDOBA Facility:[facility] Start: 11-10-2022 End: 11-11-2022 ambulatory Geri Vergara Facility:[facility] Start: 11-10-2022 End: 11-10-2022 Pain Management Gerry Jerry [facility] Start: 10-29-2022 End: 11-02-2022 ambulatory UNKNOWN PROVIDER Facility:[facility] Start: 10-29-2022 End: 11-02-2022 Office outpatient visit 15 minutes Geri Vergara MD Work Phone: [facility] Comment on above: Cervical spondylosis with myelopathy (Primary Dx) Start: 10-28-2022 ambulatory LAKISHA BANUELOS KATELIN Nelson BERYL Facility:[facility] Start: 10-27-2022 Letter encounter Geri Vergara MD Work Phone: [facility] Start: 10-26-2022 End: 10-27-2022 Orders Only Geri Vergara MD Work Phone: [facility] Comment on above: Myelopathy (HCC) Start: 2022 End: 10-21-2022 ambulatory Cooper Eller MD Facility:[facility] Start: 10-16-2022 End: 10-17-2022 ambulatory Geri Vergara Facility:[facility] Start: 10-16-2022 End: 10-16-2022 Patient encounter procedure Geri Vergara [facility] Start: 10-06-2022 End: 10-08-2022 ambulatory UNKNOWN PROVIDER Facility:[facility] Start: 09-30-2022 End: 10-01-2022 ambulatory Cooper Eller MD Facility:[facility] Start: 09-28-2022 End: 09-29-[address] COOPER ELLER Facility: Start: 09-24-2022 End: 09-25-2022 ambulatory UNKNOWN PROVIDER Facility:[facility] Start: 09-24-2022 End: 09-24-2022 Subsequent hospital visit by physician Courtney [facility] Comment on above: Spinal stenosis of l umbar region, unspecified whether neurogenic claudication present Start: 09-23-2022 Orders Only Geri farias MD Work Phone: [facility] Start: 07-30-2022 End: 07-31-[address] KELLY TIAN . Facility: Start: 07-07-2022 End: 07-07-[address] KELLY TIAN . Facility: Start: 06-25-2022 End: 06-26-[address] KELLY TIAN . Facility: Start: 06-16-2022 End: 06-17-2022 ambulatory Janie Henning Facility:[facility] Start: 06-16-2022 End: 06-16-2022 Patient encounter procedure Janie Henning [facility] Start: 06-09-2022 End: 06-10-2022 ambulatory Geri Vergara Facility:[facility] Start: 06-09-2022 End: 06-09-2022 Patient encounter procedure Geri Vergara [facility] Start: 05-19-2022 End: 05-20-2022 ambulatory Geri Vergara Facility:[facility] Start: 05-19-2022 End: 05-19-2022 Patient encounter procedure Geri Vergara [facility] Start: 05-07-2022 End: 05-08-[address] KELLY TIAN . Facility: Start: 05-01-2022 End: 05-02-2022 ambulatory ANDREW CALLEJAS . Facility: Start: 04-22-2022 End: 04-22-[address] KELLY TIAN . Facility: Start: 04-22-2022 End: 04-23-[address] COOPER ELLER Facility: Start: 04-21-2022 End: 04-22-2022 ambulatory Cooper Eller MD Facility:[facility] Start: 03-31-2022 End: 03-31-[address] KELLY TIAN . Facility: Start: 03-30-2022 End: 03-31-2022 ambulatory Cooper Eller MD Facility:[facility] Start: 03-24-2022 End: 03-25-2022 ambulatory Wilver Hannah Facility: Start: 03-18-2022 End: 03-19-[address] KELLY TIAN . Facility:[facility] Start: 03-10-2022 End: 03-11-[address] COOPER ELLER Facility:[facility] Start: 03-03-2022 End: 03-03-[address] KELLY TIAN . Facility:[facility] Start: 02-19-2022 End: 02-20-[address] KELLY TIAN . Facility:[facility] Start: 01-20-2022 End: 01-21-2022 ambulatory COOPER ELLER [facility] Start: 01-20-2022 End: 01-20-2022 Subsequent hospital visit by physician Cooper Eller MD Work Phone: [facility] Comment on above: Urinary urgency; Frequency of micturition Start: 12-25-2021 End: 12-26-2021 ambulatory Nikko Familia Facility:[facility] Start: 11-19-2021 End: 11-20-[address] KELLY TIAN . Facility:[facility] Start: 11-18-2021 End: 11-19-2021 ambulatory COOPER AMBRIZ RAFITA [facility] Start: 11-18-2021 End: 11-18-2021 Subsequent hospital visit by physician Cooper Eller MD Work Phone: [facility] Comment on above: Urinary urgency Start: 10-14-2021 End: 10-14-[address] KELLY TIAN . Facility:[facility] Start: 10-09-2021 End: 10-10-[address] KELLY TIAN . Facility:[facility] Start: 08-05-2021 End: 08-05-2021 ambulatory COOPER CROWDERIN RAFITA [facility] Start: 08-05-2021 End: 08-05-2021 Subsequent hospital visit by physician Sandra Alvarenga MD Work Phone: [facility] Start: 07-23-2021 End: 07-28-2021 ambulatory SANDRA ALVARENGA [facility] Start: 07-23-2021 End: 07-27-2021 Patient encounter status Sandra Alvarenga MD Work Phone: [facility] PRE [facility]MIT Start: 07-23-2021 End: 07-27-2021 Subsequent hospital visit by physician Sandra Alvarenga MD Work Phone: [facility] Comment on above: Preop testing Start: 04-07-2021 End: 04-08-2021 ambulatory COOPER ELLER [facility] Start: 04-10-2020 Office outpatient vi sit 15 minutes Vladimir Celestina Greco Other [facility] Start: 04-10-2020 Office Services Vladimir murphy Other [facility] Start: 01-09-2020 Office outpatient vi sit 15 minutes Vladimir Celestina Heacokatherine Other [facility] Start: 2019 End: 2019 Subsequent hospital visit by physician Cooper [facility] Comment on above: Mixed incontinence Start: 07-11-2019 Office outpatient vi sit 15 minutes Vladimir Celestina Greco Other [facility] Start: 02-24-2019 End: 02-26-2019 Subsequent hospital visit by physician Madhuri [place] Dr Room 2 [facility] Comment on above: Arrived Renal stones Start: 01-06-2019 End: 01-06-2019 Subsequent hospital visit by physician Cooper [facility] Comment on above: Mixed incontinence; OAB (overactive bladder); Frequency of urination; Urgency of urination Start: 11-29-2018 Office outpatient vi sit 15 minutes Vladimir Celestina Heacokatherine Other [facility] Start: 05-31-2018 Office outpatient vi sit 15 minutes Vladimir Celestina Heacokatherine Other [facility] Start: 02-01-2018 Office outpatient vi sit 15 minutes Vladimir Celestina Heacokatherine Other [facility] Start: 07-28-2017 Office outpatient vi sit 15 minutes Vladimir Celestina Heacokatherine Other [facility] Start: 12-03-2016 Procedure Vladimir murphy Other [facility] Start: 11-11-2016 Office outpatient vi sit 15 minutes Vladimir Celestina Heacokatherine Other [facility] Start: 05-13-2016 Office outpatient vi sit 15 minutes Vladimir Celestina Fannie Other [facility] Start: 09-26-2015 Procedure Vladimir murphy Other [facility] Start: 08-13-2015 Office outpatient vi sit 15 minutes Vladimir Greco Other [facility] Start: 11-27-2014 Office outpatient vi sit 15 minutes Vladimir Arshadkelbykatherine Other [facility] Start: 05-29-2014 Office Services Vladimir Christopher ck Other [facility] Start: 06-12-2013 Office Services Vladimir Christopher ck Other [facility] Start: 12-12-2012 Office Services Vladimir murphy Other [facility] Procedures Date Procedure Procedure Detail Performing Clinician Start: 06-17-2023 Radex spine cervical 2 or 3 views Geri Vergara MD Work Phone: Start: 03-31-2023 Fluoroscopy up to 1 hour physician/qhp time Tammy Ridley MD Work Phone: Start: 03-23-2023 End: 03-23-2023 Blood typing serologic abo Deepolo willoughby CHAINSTITCH BINDER-SUPERVISOR PAYROLL Work Phone: Start: 03-23-2023 Ecg routine ecg w/le ast 12 lds trcg only w/o i&r To Be Assigned Start: 03-23-2023 Blood typing, ABO, R ho(D) and RBC antibody screening Dee Mireles CHAINSTITCH BINDER-SUPERVISOR [employer]ROLL Work Phone: Start: 03-23-2023 End: 03-23-2023 Thromboplastin time partial plasma/whole blood Dee Mireles CHAINSTITCH BINDER-SUPERVISOR [employer]RO[employer] Work Phone: Start: 03-23-2023 Ct cervical spine w/ o contrast material Geri Vergara MD Work Phone: Start: 10-26-2022 MR NEURO IMAGE IMPORT Dayanna Vergara MD Work Phone: Start: 09-24-2022 MR NEURO IMAGE IMPORT Dayanna Vergara MD Work Phone: Start: 01-20-2022 Urnls dip stick/tabl et reagent auto microscopy Alexandra Frye PA-[employer] Work Phone: Start: 11-18-2021 Urnls dip stick/tabl et reagent auto microscopy Alexandra Frye PA-C Work Phone: Start: 08-05-2021 Electrical stimulati on of bladder Gerry Jerry Start: 07-23-2021 Ecg routine ecg w/le ast 12 lds i&r only Alexandra Abbott Hunterjosé miguelTargeted Growth PA-[employer] Work Phone: Start: 07-23-2021 Basic metabolic pane l calcium total Alexandra Abbott [employer] Work Phone: Start: 07-23-2021 IMMATURE PLATELET FRACTION Alexandra Abbott [employer]aurelianoanaV[employer] Work Phone: Start: 04-10-2020 Doc meds verified w/ pt or re Vladimir Greco Start: 01-09-2020 Doc meds verified w/ pt or re Vladimir Greco Start: 2019 Urnls dip stick/tabl et reagent auto microscopy Prashant Hernandez Work Phone: Start: 07-11-2019 Doc meds verified w/ pt or re Vladimir Greco Start: 03-01-2019 Blood count complete auto&auto difrntl wbc Vladimir Greco Start: 03-01-2019 Comprehensive metabo lic panel Vladimir Greco Start: 02-24-2019 Radiologic exam abdo men 1 view Prashant Hernandez Work Phone: Start: 01-06-2019 Urnls dip stick/tabl et reagent auto microscopy Prashant Hernandez Work Phone: Start: 11-29-2018 Current Medications Verified MIPS Vladimir Greco Start: 11-29-2018 Doc meds verified w/ pt or re Vladimir Greco Start: 11-22-2018 Blood count complete auto&auto difrntl wbc Vlaidmir Greco Start: 11-22-2018 Comprehensive metabo lic panel Vladimir Greco Start: 08-29-2018 Blood count complete auto&auto difrntl wbc Vladimir Greco Start: 08-29-2018 Comprehensive metabo lic panel Vladimir Greco Start: 08-23-2018 Blood count complete auto&auto difrntl wbc Vladimir Greco Start: 08-23-2018 Comprehensive metabo lic panel Vladimir Greco Start: 06-03-2018 Blood count complete auto&auto difrntl wbc Vladimir Greco Start: 05-31-2018 Current Medications Verified MIPS Vladimir Greco Start: 05-31-2018 Doc meds verified w/ pt or re Vladimir Greco Start: 05-24-2018 Blood count complete auto&auto difrntl wbc Vladimir Greco Start: 05-24-2018 Comprehensive metabo lic panel Vladimir Greco Start: 02-01-2018 Current Medications Verified MIPS Vladimir Greco Start: 01-28-2018 Blood count complete auto&auto difrntl wbc Vladimir Greco Start: 01-28-2018 Comprehensive metabo lic panel Vladimir Greco Start: 01-24-2018 Blood count complete auto&auto difrntl wbc Vladimir Greco Start: 01-24-2018 Comprehensive metabo lic panel Vladimir Greco Start: 07-28-2017 Current Medications Verified MIPS Vladimir Greco Start: 07-19-2017 Blood count complete auto&auto difrntl wbc Vladimir Greco Start: 07-19-2017 Comprehensive metabo lic panel Vladimir Greco Start: 05-13-2017 Blood count complete auto&auto difrntl wbc Vladimir Greco Start: 05-13-2017 Comprehensive metabo lic panel Vladimir Greco Start: 12-03-2016 Colonoscopy Sandra garces MD Work Phone: Start: 11-11-2016 Blood count complete auto&auto difrntl wbc Vladimir Greco Start: 11-11-2016 Colon ca scrn not hi rsk ind Vladimir Greco Start: 11-11-2016 Comprehensive metabo lic panel Vladimir Greco Start: 11-04-2016 Blood count complete auto&auto difrntl wbc Vladimir Greco Start: 11-04-2016 Comprehensive metabo lic panel Vladimir Greco Start: 05-13-2016 Colon ca scrn not hi rsk ind Vladimir Greco Start: 02-13-2016 Blood count complete auto&auto difrntl wbc Vladimir Greco Start: 02-10-2016 Blood count complete auto&auto difrntl wbc Vladimir Greco Start: 02-10-2016 Comprehensive metabo lic panel Vladimir Greco Start: 08-13-2015 Colon ca scrn not hi rsk ind Vladimir Greco Start: 05-30-2015 Blood count complete auto&auto difrntl wbc Vladimir Greco Start: 05-30-2015 Comprehensive metabo lic panel Vladimir Greco Start: 05-21-2014 Blood count complete auto&auto difrntl wbc Vladimir Greco Start: 05-21-2014 Comprehensive metabo lic panel Vladimir Arshadxiomara Complete repair of r otator cuff Geri Vergara Comment on above: 2014 Lewis Liu [address] [facility] [address] Gabriel H/O: hysterectomy Geri Mo jessica Comment on above: 1993 [place] History of right tot al knee replacement Geri Vergara Comment on above: [address] Gabriel Plan of Treatment Date Care Activity Detail Author Start: 03-10-2027 Cholesterol [Mass/volume] in Serum or Plasma [facility] Start: 12-03-2026 Colon cancer screen colonoscopy Colon cancer screen colonoscopy [place], [place] Start: 12-03-2026 Screening for malignant neoplasm of colon [facility] Start: 03-23-2024 Creatinine measurement Basic Metabolic Panel [facility] Start: 03-15-2024 Lipid panel Lipid Profile [facility] Start: 03-15-2024 Urine screening for protein [facility]albumin [facility] Start: 03-11-2024 Glaucoma screening Eye Exam [facility] Start: 12-27-2023 Screening for malignant neoplasm of breast Breast cancer screen [facility] Start: 09-16-2023 End: 09-16-2023 Patient encounter procedure 09/16/2023 11:15 AM EDT Office Visit [facility] [address] [place] [address] Geri Vergara MD [address] [place] [address] [facility] Start: 06-24-2023 End: 06-24-2023 Patient encounter procedure 06/24/2023 10:45 AM EST [facility] [address] [place] [id number] Geri Vergara MD [address] [place] [phone] [facility] Start: 06-17-2023 End: 06-17-2023 Patient encounter procedure 06/17/2023 10:45 AM EST [facility] [address] [place] [id number] Geri Vergara MD [address] [place] [id number] [facility] Start: 05-26-2023 Hemoglobin A1c measurement Hemoglobin A1C [facility] Start: 04-22-2023 End: 04-22-2023 [facility] Start: 03-31-2023 End: 03-31-2023 Admission to same day surgery center 03/31/2023 7:30 AM EST - 03/31/2023 10:23 AM EST Surgery [facility] Main OR [address] [place] [id number] Geri Vergara MD [address] [place] [id number] LAMINOPLASTY, POSTERIOR CERVICAL [facility] Main OR Comment on above: LAMINOPLASTY, POSTERIOR CERVICAL Start: 03-31-2023 End: 03-31-2023 LAMINOPLASTY, POSTERIOR CERVICAL LAMINOPLASTY, POSTERIOR CERVICAL Routine scheduled Cervical spondylosis with myelopathy 03/31/2023 7:30 AM EST [facility] Start: 03-31-2023 Subsequent hospital visit by physician [facility] Main [facility] Start: 03-23-2023 End: 03-23-2023 Patient encounter procedure 03/23/2023 10:30 AM EDT [facility] [address] [place] [address], [place] [address] Dee Mireles APRN-SUPERVISOR [employer]RO[employer] [address] [place] [address] [facility] Pre Surgical Evaluation Start: 03-23-2023 End: 03-23-2023 Patient encounter procedure [facility] Rad[facility] CT Start: 02-21-2023 Annual Wellness Visit (G0439) Annual Wellness Visit (G0439) [facility] Start: 02-21-2023 Influenza vaccination Influenza Vaccine (#1) [facility] Start: 02-15-2023 End: 02-16-2024 CT Cervical spine WO contrast CT C-SPINE W/O CONTRAST Imaging Within 1 week Cervical spondylosis with myelopathy Expected: 02/15/2023, Expires: 02/16/2024 [facility] Work Phone: Comment on above: Expected: 02/15/2023, Expires: Start: 02-11-2023 End: 02-11-2023 Patient encounter procedure 02/11/2023 10:30 AM EDT Office Visit [facility] [address] [place] [address] Geri Vergara MD [address] [place] [address] [facility] Start: 01-22-2023 COVID-19 Vaccine ( season) COVID-19 Vaccine ( season) [facility] Start: 12-26-2022 Screening for malignant neoplasm of breast [facility] Start: 11-03-2022 End: 11-03-2022 Patient encounter procedure 11/03/2022 Office Visit Obstetrics and Gynecology Zeus Coughlin, WM - CNStephanie [address] [place] [address] [facility] OBST[facility] & [facility]YNECOLOGY [facility] Start: 10-29-2022 ambulatory Ambulatory Facility: Start: 10-29-2022 End: 10-29-2022 Patient encounter procedure 10/29/2022 9:45 AM EDT [facility] [address] [place] [id number] Geri Vergara MD [address] [place] [phone] [facility] Start: 10-06-2022 End: 10-06-2022 Patient encounter procedure 10/06/2022 Office Visit Orthopedics Geri Vergara MD [address] [place] [phone] [facility] Start: 09-23-2022 End: 09-24-2023 DOWNLOAD eblizz IMAGES TO [employer] DOWNLOAD eblizz IMAGES TO [facility] Imaging Routine Spinal stenosis of lumbar region, unspecified whether neurogenic claudication present Expected: 09/23/2022, Expires: 09/24/2023 [employer] Work Phone: Comment on above: Expected: 09/23/2022, Expires: Start: 09-17-2022 Depression Screen [facility] Screen [facility] Start: 09-17-2022 DTaP/Tdap/Td vaccine (1 - Tdap) DTaP/Tdap/Td vaccine (1 - Tdap) [facility] [employer] Comment on above: Postponed from 1968 (Patient Refus ed) Start: 07-23-2022 Creatinine measurement Creatinine monitoring [facility] Start: 07-23-2022 Potassium monitoring Potassium monitoring [facility] Start: 03-24-2022 End: 03-24-2022 Patient encounter procedure 03/24/2022 Office Visit Urology Prashant Hernandez, CHAINSTITCH BINDER - SUPERVISOR PAYROLL [address] [place] [address] [facility] Start: 03-18-2022 Depression Screen Depression Screen [facility] Start: 03-17-2022 End: 03-17-2022 Patient encounter procedure 03/17/2022 Office Visit Internal Medicine Rafita, Cooper Pb, MD [address], [place] [address] Cooper Eller MD Start: 03-13-2022 Annual Wellness Visit (AWV) Annual Wellness Visit (AWV) [facility] Start: 03-12-2022 Diabetic foot examination Diabetic foot exam [facility] Start: 03-04-2022 Hemoglobin A1c measurement A1C test (Diabetic or Prediabetic) [facility] Start: 03-04-2022 Lipid panel [facility] Start: 03-04-2022 Thyroid stimulating hormone measurement TSH testing [facility] Start: 03-04-2022 Urine screening for protein Diabetic microalbuminuria test [facility] Start: 01-22-2022 Influenza vaccination Flu vaccine (#1) KELLI [facility] Start: 01-20-2022 End: 01-20-2022 Patient encounter procedure 01/20/2022 Office Visit Urology Prashant Hernandez, CHAINSTITCH BINDER - SUPERVISOR PAYROLL [address] [place] [id number] [facility] UROLOG[facility] Start: 10-30-2021 End: 10-30-2021 Patient encounter procedure 10/30/2021 Office Visit Obstetrics and Gynecology Zeus Coughlin, CHAINSTITCH BINDER - CNM [address] [place] [address] [facility] OBSTETRICS & GYNECOLOGY [facility] Start: 09-17-2021 End: 09-17-2021 Patient encounter procedure 09/17/2021 Office Visit Internal Medicine Cooper Eller MD [address], [place] [address] Cooper Eller MD Start: 09-10-2021 Hepatitis A vaccine (1 of 2 - Risk 2-dose series) Hepatitis A vaccine (1 of 2 - Risk 2-dose series) [facility] Comment on above: Postponed from 1950 (Not Indicated ) Start: 08-28-2021 End: 08-28-2021 Patient encounter procedure 08/28/2021 Office Visit Urology Prashant Hernandez, CHAINSTITCH BINDER - SUPERVISOR PAYROLL [address] [place] [address] [facility] Start: 08-05-2021 End: 08-05-2021 Admission to same day surgery center 08/05/2021 Surgery IP Unit Sandra Alvarenga MD [address], [address] [place] [address] SACRAL NERVE STIMULATOR IMPLANT--REMOVE INTERSTIM AND LEADS PLACEMENT OF NEW INTERSTIM [facility] Comment on above: SACRAL NERVE STIMULATOR IMPLANT--REMOVE INTERSTIM AND LEADS PLACEMENT OF NEW INTERSTIM Start: 08-05-2021 End: 08-05-2021 Inc impltj neurostimulator eltrd sacral nerve [facility] Start: 08-05-2021 Subsequent hospital visit by physician 08/05/2021 Hospital Encounter IP Unit Sandra Alvarenga MD [address], [address] [place] [address] [facility] Start: 03-31-2021 Diabetic retinal exam Diabetic retinal exam [place], [place] Start: 10-08-2020 Blood count complete auto&auto difrntl wbc CBC w diff [facility] Start: 10-08-2020 Comprehensive metabolic panel Comp [facility] Start: 08-22-2020 Creatinine measurement Creatinine monitoring [place], [place] Start: 08-22-2020 HbA1c (Bld) [Mass fraction] A1C test (Diabetic or Prediabetic) [place] Start: 08-22-2020 Lipid panel Lipid screen [place] Start: 08-22-2020 Potassium monitoring Potassium monitoring [place] Start: 07-11-2020 Blood count complete auto&auto difrntl wbc [facility] Start: 07-11-2020 Comprehensive metabolic panel [facility] Start: 04-23-2020 End: 04-23-2020 Office Visit 04/23/2020 Office Visit Urology Prashant Hernandez, CHAINSTITCH BINDER - SUPERVISOR PAYROLL [address] [place] [address] [facility] Start: 04-01-2020 Blood count complete auto&auto difrntl wbc CBC w diff [facility] Start: 04-01-2020 Comprehensive metabolic panel Comp [facility] Start: 03-31-2020 Diabetic retinal exam Diabetic retinal exam [facility] Start: 03-16-2020 Diabetic retinal exam Diabetic retinal exam [place] Start: 03-06-2020 End: 03-06-2020 Office Visit 03/06/2020 Office Visit Internal Medicine Cooper Eller MD [address] [place] [address], [place] [address] Cooper Eller MD Start: 02-25-2020 Annual Wellness Visit (AWV) Annual Wellness Visit (AWV) [place] Start: 02-25-2020 DTaP/Tdap/Td vaccine (1 - Tdap) DTaP/Tdap/Td vaccine (1 - Tdap) [place] Comment on above: Postponed from 1968 (Patient Refus ed) Start: 02-25-2020 Shingles Vaccine (2 of 3) Shingles Vaccine (2 of 3) [place] Comment on above: Postponed from 11/29/2013 (Patient Refus ed) Start: 02-24-2020 Annual Wellness Visit (AWV) Annual Wellness Visit (AWV) [place] Start: 02-18-2020 A1C test (Diabetic or Prediabetic) A1C test (Diabetic or Prediabetic) [place] Start: 02-18-2020 TSH Qn TSH testing [place] Start: 02-18-2020 TSH testing TSH testing [place] Start: 01-09-2020 Blood count complete auto&auto difrntl wbc CBC, PLATELET, DIFFERENTIAL, AUTOMATED [facility] Start: 01-09-2020 Dual energy X-ray photon absorptiometry DEXA bone density study of axial skeleton [facility] Start: 01-02-2020 Blood count complete auto&auto difrntl wbc CBC w diff [facility] Start: 01-02-2020 Comprehensive metabolic panel Comp [facility] Start: 12-08-2019 Breast cancer screen Breast cancer screen [place] Start: 12-08-2019 Screening for malignant neoplasm of breast Breast cancer screen [place] Start: 10-26-2019 End: 10-26-2019 Office Visit 10/26/2019 Office Visit Obstetrics and Gynecology Zeus Coughlin APRN - CNStephanie [address] [address] [phone] [facility]ECOLOGY Start: 10-10-2019 End: 10-10-2019 Office Visit 10/10/2019 Office Visit Obstetrics and Gynecology Zeus Coughlin, WM - CN [address] [place] [id number] [facility] 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 Start: 08-29-2019 End: 08-29-2019 Office Visit 08/29/2019 Office Visit Internal Medicine Cooper Eller MD [address] [place] [address] [phone] Cooper Eller MD Start: 08-18-2019 A1C test (Diabetic or Prediabetic) A1C test (Diabetic or Prediabetic) [place] Start: 08-18-2019 Creatinine monitoring Creatinine monitoring [place] Start: 08-18-2019 Potassium monitoring Potassium monitoring [place] Start: 08-09-2019 Blood count complete auto&auto difrntl wbc CBC w diff [facility] Start: 08-09-2019 Comprehensive metabolic panel [facility] Start: 07-11-2019 Blood count complete auto&auto difrntl wbc CBC, PLATELET, DIFFERENTIAL, AUTOMATED [facility] Start: 05-31-2019 Blood count complete auto&auto difrntl wbc CBC w diff [facility] Start: 05-31-2019 Comprehensive metabolic panel CMP [facility] Start: 03-10-2019 End: 03-10-2019 Office Visit 03/10/2019 Office Visit Urology Prashant Hernandez, CHAINSTITCH BINDER - SUPERVISOR PAYROLL [address] [place] [address] [facility] Start: 03-01-2019 Blood count complete auto&auto difrntl wbc CBC, PLATELET, DIFFERENTIAL, AUTOMATED [facility] Start: 03-01-2019 Comprehensive metabolic panel COMPREHENSIVE METABOLIC PANEL [facility] Start: 02-25-2019 [object Object] Diabetic foot exam [place] Start: 02-25-2019 Diabetic foot examination Diabetic foot exam [place] Start: 02-25-2019 Hepatitis A vaccine (1 of 2 - Risk 2-dose series) Hepatitis A vaccine (1 of 2 - Risk 2-dose series) [place] Comment on above: Postponed from 1950 (Not Indicated ) Start: 02-24-2019 End: 02-24-2019 Office Visit 02/24/2019 Office Visit Internal Medicine Cooper Eller MD [address] [place] [address], [place] [address] Cooper Eller MD Start: 02-18-2019 Lipid screen Lipid screen [place] Start: 01-22-2019 Influenza vaccination Flu vaccine (#1) [place] Start: 11-22-2018 Blood count complete auto&auto difrntl wbc CBC w diff [facility] Start: 11-22-2018 Comprehensive metabolic panel Comp [facility] Start: 08-29-2018 Blood count complete auto&auto difrntl wbc CBC, PLATELET, DIFFERENTIAL, AUTOMATED [facility] Start: 08-29-2018 Comprehensive metabolic panel COMPREHENSIVE METABOLIC PANEL [facility] Start: 08-23-2018 Blood count complete auto&auto difrntl wbc CBC w diff [facility] Start: 08-23-2018 Comprehensive metabolic panel Comp [facility] Start: 08-17-2018 TSH testing TSH testing [place] Start: 06-03-2018 Blood count complete auto&auto difrntl wbc CBC, PLATELET, DIFFERENTIAL, AUTOMATED [facility] Start: 05-24-2018 Blood count complete auto&auto difrntl wbc CBC w diff [facility] Start: 05-24-2018 Comprehensive metabolic panel Comp [facility] Start: 03-25-2016 Diabetic microalbuminuria test Diabetic microalbuminuria test [place] Start: 09-22-2015 Annual wellness visit Annual Wellness Visit (G0438) [facility] Start: 2014 Pneumococcal vaccination Pneumococcal Vaccine(s) (65+ yrs) (1 - PCV) [facility] Start: 2014 Screening for osteoporosis Bone Densitometry [facility] Start: 11-29-2013 Shingles Vaccine (2 of 3) Shingles Vaccine (2 of 3) [facility] Start: 2012 Annual Wellness Visit (AWV) Annual Wellness Visit (AWV) [place] Start: 2009 RSV vaccine (optional 60+ years) RSV vaccine (optional 60+ years) [facility] Start: 10-21-1999 Shingles (RZV) Vaccine (1 of 2) Shingles (RZV) Vaccine (1 of 2) [facility] Start: 1994 Cholesterol [Mass/volume] in Serum or Plasma Cholesterol [facility] Start: 1994 Screening for malignant neoplasm of colon [facility] Start: 1989 Screening for malignant neoplasm of breast Mammography [facility] Start: 1968 DTaP/Tdap/Td vaccine (1 - Tdap) DTaP/Tdap/Td vaccine (1 - Tdap) [facility] Start: 10-21-1967 Hepatitis C screening Hepatitis C Antibody [facility] Start: 10-21-1967 Tetanus + diphtheria + acellular pertussis vaccine (product) Tdap Booster [facility] Start: 1950 Hepatitis A vaccine (1 of 2 - Risk 2-dose series) Hepatitis A vaccine (1 of 2 - Risk 2-dose series) [facility] Start: 04-22-1950 COVID-19 Vaccine (#1) COVID-19 [facility]ine [facility]) [facility] Start: 1949 Urine screening for protein Microalbumin [facility] Start: 1949 COVID-19 Vaccine ([id number] formulation) COVID-19 Vaccine ( formulation) [facility] Start: 1949 Cyanocobalamin vitamin b-12 Vitamin B12 [facility] Start: 1949 Diabetic foot examination Foot Exam [facility] Start: 1949 Screening for malignant neoplasm of colon Colonoscopy [facility] Start: 1949 Thyroid stimulating hormone measurement TSH [facility] End: 2019 Culture, Urine Culture, Urine Microbiology Routine Mixed incontinence 1 Occurrences starting 2019 until 2019 [place] Comment on above: 1 Occurrences starting 2019 until 2019 Culture, Urine Culture, Urine Microbiology Routine Mixed incontinence 2019 3:24 PM EDT [place] End: 11-18-2021 Culture, Urine [facility] Work Phone: Comment on above: 1 Occurrences starting 11/18/2021 until 11/18/2021 End: 01-20-2022 Culture, Urine [facility] Phone: Comment on above: 1 Occurrences starting 01/20/2022 until 01/20/2022 End: 04-05-2023 Ecg routine ecg w/least 12 lds trcg only w/o i&r EKG 12 LEAD - PERFORM MUSE Routine Preop testing 1 Occurrences starting 03/22/2023 until 04/05/2023 [employer] Work Phone: Comment on above: 1 Occurrences starting 03/22/2023 until 04/05/2023 End: 08-05-2021 Fluoroscopy during operation FLUORO FOR SURGICAL PROCEDURES Imaging Routine Once for 1 Occurrences starting 08/05/2021 until 08/05/2021 [employer] Phone: Comment on above: Once for 1 Occurrences starting 08/06/19 until 08/05/2021 End: 08-05-2021 INITIATE PACU OXYGEN THERAPY PROTOCOL Initiate PACU Oxygen Therapy Protocol Respiratory Care Routine Continuous until discontinued starting 08/05/2021 [employer] Phone: Comment on above: Continuous until discontinued starting 0 08/05/2021 LAMINOPLASTY, COLD ROLLING COORDINATOR IOR CERVICAL LAMINOPLASTY, POSTERIOR CERVICAL Routine scheduled Cervical spondylosis with myelopathy [employer] Oxygen therapy [[facility] Data Set] Initiate Oxygen Therapy Protocol Respiratory Care Routine As Needed until discontinued starting 08/05/2021 [employer] Phone: Comment on above: As Needed until discontinued starting End: 01-06-2019 Urine culture clean catch Urine culture clean catch Microbiology Routine Mixed incontinence OAB (overactive bladder) Frequency of urination Urgency of urination 1 Occurrences starting 01/06/2019 until 01/06/2019 [employer] Comment on above: 1 Occurrences starting 01/06/2019 until 01/06/2019 Urine culture clean catch Urine culture clean catch Microbiology Routine Mixed incontinence OAB (overactive bladder) Frequency of urination Urgency of urination 01/06/2019 10:45 AM EDT [facility] Immunizations Immunization Date Immunization Notes Care Provider Fa [facility] 02-02-2023 Influenza, seasonal vaccine, quadrivalent, adjuvanted, 0.5mL dose, preservative free (NGB=245) Geri Vergara MD Work Phone: [facility] 11-23-2022 Hemoglobin A1C Dee willoughby CHAINSTITCH BINDER-SUPERVISOR PAYROLL Work Phone: [facility] 02-01-2022 Influenza, injectabl e, high-dose seasonal, quadrivalent, 0.7 mL, preservative free (QGK=432) [facility] 02-01-2022 influenza virus vaccine, unspecified formulation Geri Vergara MD Work Phone: [facility] 08-27-2021 Pfizer Monovalent (1 2+ yrs) SARS-COV-2 (COVID-19) vaccine, mRNA, spike protein, LNP, pres. free, 30 mcg/0.3mL dose, nabil-sucrose (HIB=199) [facility] 02-15-2021 COVID-19, Pfizer Pur ple top, DILUTE for use, 12+ yrs, 30mcg/0.3mL dose Sandra Alvarenga MD Work Phone: [facility] [employer] Work Phone: 02-03-2021 Influenza, High-dose , Quadv, 65 yrs +, IM (Fluzone) Sandra Alvarenga MD Work Phone: [facility] [employer] Work Phone: 07-22-2020 COVID-19, Pfizer Pur ple top, DILUTE for use, 12+ yrs, 30mcg/0.3mL dose Sandra Alvarenga MD Work Phone: [facility] Work Phone: 07-01-2020 COVID-19, Pfizer Pur ple top, DILUTE for use, 12+ yrs, 30mcg/0.3mL dose Sandra Alvarenga MD Work Phone: [facility] Work Phone: 01-25-2020 influenza virus vaccine, unspecified formulation Sandra Alvarenga MD Work Phone: [facility] [employer] Work Phone: 01-25-2020 Influenza, High-dose , Quadv, 65 yrs +, IM (Fluzone) Sandra Alvarenga MD Work Phone: [facility] 02-14-2019 influenza, high dose seasonal, preservative-free [address], [place] 02-28-2018 influenza, high dose seasonal, preservative-free [facility], [place] 02-28-2018 pneumococcal polysaccharide vaccine, 23 valent Cooper [facility] 03-01-2017 Influenza Vaccine, unspecified formulation [address] , [place] 03-01-2017 influenza virus vaccine, unspecified formulation Cooper Eller MD Work Phone: [facility] Work Phone: 02-19-2017 influenza, high dose seasonal, preservative-free [facility], [place] 03-04-2016 Influenza Vaccine, unspecified formulation [address] Work Phone: 03-04-2016 pneumococcal conjuga te vaccine, 13 valent Cooper [facility] 03-02-2016 influenza virus vaccine, unspecified formulation [facility] 05-01-2015 pneumococcal conjuga te vaccine, [address], [place] 03-24-2015 influenza virus vaccine, unspecified formulation Cooper Eller MD Work Phone: [facility] Work Phone: 03-24-2015 seasonal influenza, intradermal, preservative free [address], [place] 03-13-2015 influenza, high dose seasonal, preservative-free [address], [place] 02-26-2014 influenza virus vaccine, unspecified formulation [facility] 10-04-2013 zoster vaccine, live Cooper [facility], [place] 02-26-2012 zoster vaccine, live Cooper [facility] 03-24-2011 pneumococcal polysaccharide vaccine, 23 valent Cooper [facility] 03-25-2009 novel [id number], preservative-free, injectable [facility] Payers Date Payer Category Payer Unknown [id number] 2018 Medicare MEDICARE MEDICAR E PART A AND B xxxxxxxxxxx 2018-Present [phone] [place] [address] xxxxxxxxxxx [id number] 2018 Private Health Insurance HUMANA HUMANA MEDICARE SUPP xxxxxxxxx 2018-Present [address] [address] [place] [address] xxxxxxxxx [id number] 2014 Medicare [id number] 1959 Medicare [id number] 2.16.840.1.042624.3.441 1959 Private Health Insurance [id number] 1.2.840.521959.1.13.239.2. [id number] 1949 Unknown [id number] 2.16.840.1.692381.3.579.2. 173 1949 Unknown [id number] 2.16.840.1.193247.3.579.2. 173 1949 Unknown [id number] 2.16.840.1.597962.3.579.2. 173 1949 Unknown [id number] 2.16.840.1.604783.3.579.2. 173 1949 Unknown [id number] 2.16.840.1.485270.3.579.2. 173 1949 Unknown [id number] 2.16.840.1.101547.3.579.2. 593 1949 Unknown [id number] 2.16.840.1.833641.3.579.2. 593 1949 Unknown [id number] 2.16.840.1.109271.3.579.2. 593 1949 Unknown [id number] 2.16.840.1.306219.3.579.2. 593 1949 Unknown [id number] 2.16.840.1.759087.3.579.2. 593 1949 Unknown [id number] 2.16.840.1.631936.3.579.2. 593 1949 Unknown [id number] 2.16.840.1.170022.3.579.2. 593 1949 Unknown [id number] 2.16.840.1.145531.3.579.2. 593 1949 Unknown [id number] 2.16.840.1.354242.3.579.2. 593 1949 Unknown [id number] 2.16.840.1.972363.3.579.2. 593 1949 Unknown [id number] 2.16.840.1.720686.3.579.2. 593 1949 Unknown [id number] 2.16.840.1.854876.3.579.2. 593 1949 Unknown [id number] 2.16.840.1.270078.3.579.2. 593 1949 Unknown [id number] 2.16.840.1.796130.3.579.2. 593 1949 Unknown [id number] 2.16.840.1.453314.3.579.2. 593 1949 Unknown [id number] 2.16.840.1.390096.3.579.2. 593 1949 Unknown [id number] 2.16.840.1.890517.3.579.2. 593 1949 Unknown [id number] 2.16.840.1.363096.3.579.2. 593 1949 Unknown [id number] 2.16.840.1.427480.3.579.2. 593 1949 Unknown [id number] 2.16.840.1.085186.3.579.2. 727 1949 Unknown [id number] 2.16.840.1.745964.3.579.2. 727 1949 Unknown [id number] 2.16.840.1.281005.3.579.2. 727 1949 Unknown [id number] 2.16.840.1.138757.3.579.2. 727 1949 Unknown [id number] 2.16.840.1.661831.3.579.2. 727 1949 Unknown [id number] 2.16.840.1.946348.3.579.2. 594 1949 Unknown [id number] 2.16.840.1.946302.3.579.2. 594 1949 Unknown [id number] 2.16.840.1.830789.3.579.2. 594 1949 Unknown [id number] 2.16.840.1.319607.3.579.2. 196 1949 Unknown [id number] 2.16.840.1.585907.3.579.2. 196 1949 Unknown [id number] 2.16.840.1.263079.3.579.2. 196 1949 Unknown [id number] 2.16.840.1.952004.3.579.2. 196 1949 Unknown [id number] 2.16.840.1.309454.3.579.2. 196 1949 Unknown [id number] 2.16.840.1.386210.3.579.2. 196 1949 Unknown [id number] 2.16.840.1.457682.3.579.2. 732 1949 Unknown [id number] 2.16840.1.007854.3.579.2. 1949 Unknown [id number] 2.16.840.1.126725.3.579.2. 73 1949 Unknown [id number] 2.840.1.122982.3.579.2. 1949 Unknown [id number] 2.840.1.239291.3.579.2. 73 1949 Unknown [id number] 2.840.1.564160.3.579.2 1949 Unknown [id number] 2.840.1.600306.3.579.2 1949 Unknown [id number] 2.840.1.790819.3.579.2. 1949 Unknown [id number] 2.840.1.777743.3.579.2. 1949 Unknown [id number] 2.840.1.231912.3.579.2 1949 Unknown [id number] 2.840.1.281650.3.579.2. 73 1949 Unknown [id number] 2.840.1.961284.3.579.2. 1949 Unknown [id number] 2.840.1.182638.3.579.2. 1949 Unknown [id number] 2.840.1.415747.3.579.2. 1949 Unknown [id number] 2.840.1.392207.3.579.2. 732 Private Health Insurance [id number] 2.840.1.610302.3.441 Unknown [id number] 2.840.1.539875.3.441 Unknown [id number] 2.16.840.1.990578.3.441 Social History Date Type Detail Facility Start: Denies ETOH use [facility] Start: 01-06-2019 End: 10-29-2022 Former smoker [facility] [employer] End: 05-24-1974 History of tobacco use Current [place] End: 05-24-1974 History of tobacco use Cigarette Smoker [place] Start: 01-06-2019 End: 01-20-2022 Cigarettes smoked current (pack per day) - Reported [place] Start: 01-06-2019 End: 02-24-2019 Alcohol intake No [facility] Start: 03-24-2016 End: 01-20-2022 Tobacco Comment smoked socially on occassion until 1999 [place] Start: 04-07-2016 Alcohol Comment social [place] Start: 1950 Sex Assigned At Not on file [place] Start: 2019 Alcohol intake Current non-drinker of alcohol (finding) [place] Start: 08-29-2019 History SDOH Financial 5 [place] Start: 08-29-2019 End: 03-18-2021 History SDOH Food Worry 1 [place] Start: 08-29-2019 End: 03-18-2021 History SDOH Transport Med 2 [place] Start: 1950 Sex Assigned At Female [place] Exposure to SARS-CoV -2 (event) Unable to assess [place] Start: 04-03-2015 End: 10-29-2022 Tobacco use and exposure Smokeless tobacco non-user [facility] Phone: Start: 07-23-2021 End: 08-05-2021 Alcohol intake Current drinker of alcohol (finding) [facility] [employer] Phone: Start: 03-11-2020 History SDOH Alcohol Std Drinks 98 [employer] Phone: Start: 03-18-2021 History SDOH Social Connections Phone 3 [employer] Phone: Start: 03-18-2021 History SDOH Social Connections Living 7 [employer] Phone: Start: 03-18-2021 History SDOH Physical Activity DPW 0 [employer] Phone: Start: 03-18-2021 History SDOH Financial 4 [employer] Phone: Start: 2021 End: 10-30-2021 Exposure to SARS-CoV-2 (event) Not sure [employer] Phone: Start: 11-18-2021 End: 04-01-2023 Alcohol intake Ex-drinker (finding) [facility] Phone: Tobacco smoking status No Smokin g Status Entered [facility] Tobacco smoking stat [facility] Tobacco smoking consumption unknown [facility] Start: 09-24-2022 Gender identity Identifies as female gender (finding) [facility] Start: 09-24-2022 Sexual orientation Heterosexual (finding) [facility] Medical Equipment Procedure Code Equipment Code Equipment Origin al Text Equipment Identifier Dates Kit Lead Sure Sc an Interstim Mri - [id number] Start: 08-05-2021 Generator Neurostimulator [id number] Thk3in Torq [facility] Prod - [id number] Start: 08-05-2021 Comment on above: Description: PIN# [id number] Plate 7mm In-Tiffanie e Shelf Ea1 1102.3007 - [id number] Start: 03-31-2023 Screw 2.6 X 6mm Self-Drilling Ea1 1102.6006 - [id number] Start: 03-31-2023 Functional Status Date Assessment Result Facility 11-10-2022 Functional Status N/A [facility] 06-16-2022 Functional Status N/A [facility] [facility] 05-19-2022 Functional Status N/A [place] [facility] Clinical Notes 07-23-2021 to 06-17-2023 Lisa Huff RN - 06/17/2023 10:59 AM Geri Marin MD - 06/16/2023 6:06 PM ESTTelephone Encounter - Jose Guadalupe Fox RN - 05/04/2023 1:46 PM ESTAshleighSalomoncesar - 04/22/2023 4:22 PM EST Note Date & Type Note Facility 06-17-2023 History of Presen t illness Narrative Patient was identified by name and date of . Lisa Huff RN Patient at risk for falls:No Falls Risk protocol implemented: No DX: 31Mar2023 Posterior cervical laminoplasty, C4 to C7, with Globus Canopy laminoplasty system. LAST VISIT: 22apr2023 Ruddy RN Ms Rubio returns today. Normal bowel habits. Denies fever/chills. PE: Incision C/D/I, at neuro baseline, deltoids intact. Justine removed from surgical incision, steri-strips applied. INV: Standing lateral flex-ex cervical xrays, no issues IMP: 72yo female s/p C4-C7 laminoplasty, doing well almost 3 months PLAN: I encouraged her to continue doing her exercises. I encouraged her to take the Flexeril 3 times a day if she has pain. I recommended heat, ice and simple modalities for her neck misery. I recommended she sleep in the soft collar if her neck still hurts at night. I will see her back in 3 months with standing lateral flexion-extension views of her cervical spine. documented in this encounter [facility] 05-04-2023 Telephone encount er Note RN called pt. Pt answered. Pt wanted to know how long to do her neck exercises. RN answered her question, 2 five minutes sessions a day. RN went over the same post-operative teaching that was done at 11/30/23 post operative visit. Pt verbalized understanding and was taking notes both at that visit and during this phone call. Pt asked how to send messages in [employer]. RN let her know to make sure she is logged into her [employer] and to send messages to Dr Vergara and they will get to his RN. Pt agreeable. No further questions. Pt verbalized understanding. ----- Message from Judith Palm sent at 05/04/2023 12:15 PM EST ----- Regarding: clarification Needs clarification on her neck exercises. Please call. [facility] 05-04-2023 Miscellaneous Notes Formattin g of this note might be different from the original. RN called pt. Pt answered. Pt wanted to know how long to do her neck exercises. RN answered her question, 2 five minutes sessions a day. RN went over the same post-operative teaching that was done at 04/22/23 post operative visit. Pt verbalized understanding and was taking notes both at that visit and during this phone call. Pt asked how to send messages in [employer]. RN let her know to make sure she is logged into her [employer] and to send messages to Dr Vergara and they will get to his RN. Pt agreeable. No further questions. Pt verbalized understanding. ----- Message from Judith Palm sent at 05/04/2023 12:15 PM EST ----- Regarding: clarification Needs clarification on her neck exercises. Please call. documented in this encounter [facility] 04-22-2023 History of Presen t illness Narrative Soft cervical collar dispensed to patient in clinic. Patient was identified by name and date of . Jose Guadalupe Fox RN Patient at risk for falls:Yes Falls Risk protocol implemented: Yes DX: 31Mar2023 Posterior cervical laminoplasty, C4 to C7, with Globus Canopy laminoplasty system. LAST VISIT: [facility]SD Ms Rubio returns today. Normal bowel habits. Denies fever/chills. PE: Incision C/D/I, at neuro baseline, deltoids intact. Justine removed from surgical incision, steri-strips applied. INV: no new. IMP: 72 y/o female s/p C4-C7 laminoplasty, doing well first post-op check. PLAN: Soft collar p.r.n., I taught her some exercises to do. She needs to be mindful of her bowels. Continue to work the hands as much as possible and walk a little bit farther today than yesterday. Dr Vergara will want to see her back in 8-10 weeks with standing lateral flexion extension views of the cervical spine. documented in this encounter [facility] 04-09-2023 Telephone encount er Note RN called [facility] back. Spoke with Beryl who had originally called. Advised pt's justine are to stay in place until follow up appt on 04/22/23. Pt ok to shower, mild soap and water can run over the incision. No vigorous scrubbing. Pat dry. Leave open to air or cover lightly with dry gauze and change daily. Beryl agreeable. No further questions. Beryl verbalized understanding. ----- Message from Maura Trotter sent at 04/08/2023 4:13 PM EST ----- Regarding: ? from [facility] [phone] Calling to question can she get a shower ? Hair washed ? Still has justine - Dressing off today [facility] 04-09-2023 Miscellaneous Notes Formattin g of this note might be different from the original. RN called [facility] back. Spoke with Beryl who had originally called. Advised pt's justine are to stay in place until follow up appt on 04/22/23. Pt ok to shower, mild soap and water can run over the incision. No vigorous scrubbing. Pat dry. Leave open to air or cover lightly with dry gauze and change daily. Beryl agreeable. No further questions. Beryl verbalized understanding. ----- Message from Maura Trotter sent at 04/08/2023 4:13 PM EST ----- Regarding: ? from SNF [facility] [phone] Calling to question can she get a shower ? Hair washed ? Still has justine - Dressing off today documented in this encounter [facility] 04-03-2023 Note DISCHARGE SUMMARY [address] [address] Msasimo Banerjee Date of : 1950 72 year oldfemale Attending No att. providers found ? Date of Admission 03/31/2023 Date of Discharge 04/03/23 Hospital Problems as of 04/03/2023 * (Principal) Cervical spondylosis with myelopathy History of major orthopedic surgery No discharge procedures on file. Future Appointments Date Time Provider Department Center 04/22/2023 10:30 AM ORTHO SPINE RN [facility] Condition at Discharge Improved Activity WBAT, no heavy lifting/bending/twisting Diet No restrictions Disposition SNF Functional Status Ambulatory Reason for Hospitalization Cervical spondylosis with myelopathy Significant Findings See operative report Hospital Course 72 year-old F who presented with Cervical spondylosis with myelopathy. Patient is now s/p C4-C7 laminoplasty on 03/31/[address] Vergara. On the day of surgery, patient was identified in the pre-operative holding area and agreeable to proceed with surgery. Written consent was obtained. Please see operative note for further details of this procedure. Patient received 24 hours of salinas-operative antibiotics. Patient recovered in the PACU before transfer to a regular nursing floor. Patient was started on oxycodone, tylenol, and AUDIO PRODUCTION ENGINEER for pain control. Physical therapy recommended continued recovery at SNF with continued physical therapy and wound care. On the day of discharge, patient was afebrile with stable vital signs. Patient was neurovascularly intact at time of discharge. Patient will follow-up with Dr. Vergara in 2 weeks for post-operative visit. Jose Guadalupe Coello MD Orthopaedic Surgery, PGY 2 Ortho Team A Pager [phone] (Mashwork works best - please include all of Team A in epic messages) Additional Team A: Charlie Solis MD ([phone]) After 5 pm and on weekends, please page consumer affairs specialist resident ([phone]) with questions or concerns. [facility] 04-03-2023 Note ORTHOPAEDIC SURGERY PROGRESS NOTE SUBJECTIVE: No acute events overnight. AFVSS. Pain is well controlled. Plan for DC today to facility. OBJECTIVE: Patient Vitals for the past 24 hrs: BP Temp Temp src Pulse Resp SpO2 O2 Device 04/03/23 0511 136/65 98.4 ???F (36.9 ???C) Oral 81 18 98 % Room air 04/02/23 2121 135/57 98.2 ???F (36.8 ???C) Oral 87 17 97 % Room air 04/02/23 1405 -- 99.8 ???F (37.7 ???C) Oral -- -- -- -- 04/02/23 1400 148/74 101.1 ???F (38.4 ???C) Oral 85 18 99 % Room air 04/02/23 1001 142/63 99.7 ???F (37.6 ???C) Oral 85 16 97 % Room air 04/02/23 0800 -- -- -- -- -- -- Room air Basic Metabolic Panel None Intake/Output Summary (Last 24 hours) at 04/03/2023 0657 Last data filed at 04/02/2023 0900 Gross per 24 hour Intake 600 ml Output -- Net 600 ml PHYSICAL EXAM: Gen: NAD, A AND O x3 Normal chest rise with respiration RRR to peripheral palpation Spine Exam: - 5/5 motor bilateral deltoids, triceps, biceps, HG - 5/5 motor bilateral KF/KE, PF/DF/EHL - Sensation intact throughout bilateral upper and lower extremities - Bilateral upper and lower extremities warm and well perfused - HV removed 04/02. ASSESSMENT AND PLAN: Massimo Banerjee is a 72 year old female s/p C4-7 laminoplasty w/ Dr. Vergara on 03/31 - Weightbearing: AT, no heavy lifting/bending/twisting - Dressing: c/d/i - Keep splint dry, use rest, ice, elevation, and compression PRN for pain - Drains: Hv removed 04/02 - Diet: Regular - DVT Prophylaxis: SCDs - Antibiotics: periop ancef - Consults: PT/OT, appreciate recs - XR complete DISPO: SNF today Jose Guadalupe Coello MD Orthopaedic Surgery PGY-2 For questions/issues: Patient will be followed by Team A: Salvador Solis PGY2 Jose Guadalupe Coello PGY2 After 5 PM and Weekends, please notify consult pager, [phone] Ortho Team A: Tati Coello, PGY2: [phone] Charlie Solis, PGY2: [phone] Ortho Team B: Percy (Yvette) Jacqueline, PGY3: [phone] Jeffrey Vega, PGY1: [phone] Ortho Elective Team: Harini Cardoso, PGY3: [phone] Aden Culver, PGY2: [phone] Ortho Hand Team: Chavez Gill, PGY4: [phone] Kyle Santos, PGY4: [phone] [facility] [employer] [facility] 04-02-2023 Note 04/02/23 0827 Assessment and Discharge Planning Evaluation READMISSION LESS THAN 30 DAYS No READMISSION RISK SCORE IS Low Risk INTERVIEWED Patient;Chart Review COGNITIVE STATUS Oriented to person, place, time and location Functional Status Age Appropriate;Ambulatory LIVING SITUATION Alone;Home - Own PCP VERIFIED No ADMISSION INSURANCE Medicare HOME HEALTH CARE PRIOR TO ADMISSION No Dialysis No TENTATIVE DISCHARGE PLAN Custodial Facility READMISSION RISK SCORE SHOULD BE Remain Unchanged REASON READMISSION SCORE NEEDS ADJUSTED na CM met with Ms Banerjee yesterday. She is requesting SNF ([facility]) CM sent referral via [facility]. She will need 3 midnights in order to transfer which will be Wednesday04/03/23. CM will remain available to assist with discharge planning and needs as warranted. Eloisa URBINA, wrapper stitcher (8:30-4:00) [facility] 04-02-2023 Note ORTHOPAEDIC SURGERY PROGRESS NOTE SUBJECTIVE: No acute events overnight. AFVSS. Pain is well controlled. OBJECTIVE: Patient Vitals for the past 24 hrs: BP Temp Temp src Pulse Resp SpO2 O2 Device 04/02/23 0513 156/80 99.3 ???F (37.4 ???C) Oral 91 16 9 % Room air 04/02/23 0319 134/67 99.3 ???F (37.4 ???C) Oral 87 16 99 % Room air 04/01/23 2008 149/62 98.6 ???F (37 ???C) Oral 89 16 99 % Room air 04/01/23 1331 134/52 98.2 ???F (36.8 ???C) Oral 83 16 99 % Room air 04/01/23 0921 140/64 98.2 ???F (36.8 ???C) Oral 88 18 98 % Room air 04/01/23 0831 -- -- -- -- -- -- Room air Basic Metabolic Panel None Intake/Output Summary (Last 24 hours) at 04/02/2023 0746 Last data filed at 04/02/2023 0500 Gross per 24 hour Intake 401.8 ml Output 65 ml Net 336.8 ml PHYSICAL EXAM: Gen: NAD, A AND O x3 Normal chest rise with respiration RRR to peripheral palpation Spine Exam: - 5/5 motor bilateral deltoids, triceps, biceps, HG - 5/5 motor bilateral KF/KE, PF/DF/EHL - Sensation intact throughout bilateral upper and lower extremities - Bilateral upper and lower extremities warm and well perfused - HV in place holding suction ASSESSMENT AND PLAN: Massimo Banerjee is a 72 year old female s/p C4-7 laminoplasty w/ Dr. Vergara on 03/31 - Weightbearing: AT, no heavy lifting/bending/twisting - Dressing: c/d/i - Keep splint dry, use rest, ice, elevation, and compression PRN for pain - Drains: Hvx1; please record output each shift - Diet: Regular - DVT Prophylaxis: SCDs - Antibiotics: periop ancef - Consults: PT/OT, appreciate recs - XR complete DISPO: recd SNF pending drain Charlie Solis MD Orthopaedic Surgery PGY-2 For questions/issues: Patient will be followed by Team A: Salvador Solis PGY2 Jose Guadalupe Coello PGY2 After 5 PM and Weekends, please notify consult pager, [phone] Ortho Team A: Tati Coello, PGY2: [phone] Charlie Solis, PGY2: [phone] Ortho Team B: Percy (Yvette) Jacqueline, PGY3: [phone] Jeffrey Vega, PGY1: [phone] Ortho Elective Team: Harini Cardoso, PGY3: [phone] Aden Culver, PGY2: [phone] Ortho Hand Team: Chavez Gill, PGY4: [phone] Kyle Santos, PGY4: [phone] [facility] 04-01-2023 Note PHYSICAL THERAPY ACU TE EVALUATION Referral received, chart reviewed. Patient seen on unit: 6E for 24 minutes (eval and tx) Time in: 1048 time out: 1112 Admit date/time: 03/31/2023 8:20 AM Reason for admit: elective surgery for cervical spondylosis and myelopathy. Procedures this admit: 03/31/[address] Vergara: C4-C7 laminoplasty History of B knee replacements. Bilateral rotator cuff surgeries. Precautions: high falls, full code, soft collar, WBAT, no heavy lifting, twisting or bending. Identification was verified by patient verbalizing her name and date of and patient's I.D. band. Risks and Benefits of physical therapy: Patient informed of risks and benefits of treatment SUBJECTIVE: Patient Subjective: My plan was to go to a skilled facility. I already talked to them and gave them my information and they told me they would have a bed for me. Patient Identified Goal(s): to go to SNF MUFFLER TENDER Status: independent, lives alone. Drives. Retired. Home: 3 steps to enter without rails. 1 flight of steps to bedroom/bathroom with rails. *can stay in recliner on first level with half bath Assistance available: limited assist. Can call people but cannot depend on them Equipment available: quad cane OBJECTIVE: Appearance: soft cervical collar, IV, AUDIO PRODUCTION ENGINEER, BLE SCDs, hemovac drain Behavior: WFL Oriented x 3 Follows 1 step commands consistently Pain: Site/Location: neck and shoulders; Pain Scale: greater than a 10 /10 Pain Relief Interventions Implemented: positioning, rest, AUDIO PRODUCTION ENGINEER and RN administered tylenol. Passive ROM: Not formally tested however observed WFL for basic level of mobility Strength/Active ROM: BLE at least 3/5 throughout however some increased heaviness in LLE Mobility: Rolling to left: contact guard with cues Sidelying to sit: mod assist of 1 from flat bed. Sitting balance: Good Sit to stand: min assist of 2 (side by side) with quad cane. Reports increased weakness in LLE. No buckling. Denies dizziness. Transfers: bed to chair with stand-step transfer. Patient able take 4-5 small steps to chair with quad cane in RUE and min assist of 2. Decreased speed and step length. No buckling or LOB. Patient seated in chair. Able to scoot back in chair with cues. Remained in chair with BLE elevated at end of session. Call light in reach. Chair alarm on. RN aware. AUDIO PRODUCTION ENGINEER in reach. Endurance: WFL Patient/Family Education: Instructed Patient in roles of therapy. Educated in log roll technique Importance of mobility and OOB Repositioning in chair Reviewed use of call light and instructed patient to call for assistance to mobilize. Instructed in ability to use ice pack. Reviewed antiembolic exercises with patient Reviewed gentle shoulder exercises to decreased pain and stiffness. ASSESSMENT: Massimo Banerjee is a 72 year old female admitted for elective C4-C7 laminoplasty. Patient demonstrates increased pain and L weakness though does have full active ROM available. Patient is below functional baseline and lives alone with limited assistance available. At this time, would recommend further inpt therapies in a skilled setting to maximize functional outcomes. Will follow pt while in house. Problems: Pain Decreased ROM/strength Decreased functional mobility Decreased balance Decreased education in exercise/precautions Rehabilitation Potential: Good Goals (to be achieved by discharge from acute care): Patient will achieve acceptable level of pain control to allow participation in therapy. Patient will increase bed mobility to minimal assistance Patient will perform sit to/from stand with quad cane vs RW PRN with CG assistance. Patient will ambulate 40+ feet with quad cane vs RW PRN with CG assistance. Patient will increase ROM/Strength/Endurance/Balance to allow for above goals. 6 Clicks Basic Mobility PT 04/01/2023 Difficulty turning over in bed 3 Difficulty sitting down and standing up from a chair with arms 2 Difficulty moving from lying on back to sitting on the side of the bed 2 Help from another person moving to and from bed to a chair 2 Help from another person to walk in hospital room 2 Help from another person climbing 3-5 steps with a railing 1 PT 6 Clicks Score 12 6 Click Score Guidelines: 1 - Total = Requires total assistance, or cannot do at all. 2 - A lot = Requires a lot of help (maximun to moderate assistance) Can use assistive devices. 3 - A little = Requires a little help (supervision, minimal assistance) Can use assistive devices. 4 - None = Does not require any help and does the activity independently. Can use assistive devices. PLAN: Frequency: Patient to be seen 1-3 times a week for: Interventions: Functional mobility ROM/Strengthening Discharge planning and equipment ordering as needed Patient/Family education The evaluation findings and treatment plan were discussed with the patient. The patient i (more content not included)... [facility] [employer] [facility] 04-01-2023 Note OCCUPATIONAL THERAPY INITIAL EVALUATION Patient seen from 1049 to 1111 on GC6E unit for 22 minutes. (E + Tx) Co-eval with PT for skilled assist with progression of functional mobility and safety. Admit Date: 03/31/2023 8:20 AM Reason for Admit: 72 y/o female presenting for planned procedure 2/2 cervical spondylosis with myelopathy Precautions/Activity Order: [place] Full Code Regular Diet Activity as Tolerated WBAT no heavy lifting/bending/twisting per Dr. Ridley Brief Operative Note Procedures this admit: 03/31/[address] Vergara: C4-C7 laminoplasty Past Medical and Surgical History: PMH: No past medical history on file. PSH: Past Surgical History: Procedure Laterality Date LAMINOPLASTY, POSTERIOR CERVICAL N/A 03/31/2023 Procedure: LAMINOPLASTY, POSTERIOR CERVICAL C4-7; Surgeon: Geri Vergara MD; Location: PERIOPERATIVE SERVICES; Service: Neurosurgery SUBJECTIVE: Patient Subjective: I plan on going to a [facility]p facility. I already called them before the surgery and set it up. Patient Identified Goal(s): return to home. Home Living Situation Prior Functional Status: Independent with Activities of Daily Living Independent Driving Modified Independent Ambulation with quad cane PRN Independent with Instrumental Activities of Daily Living Retired Denies recent falls Assistance Available at Home: Lives alone, very limited assist available Patient lives in a 2 story condo 3 stairs to enter w/ no rail. Full Bathroom on 2 level, 1/2 Bathroom on 1 level. Bedroom on 2 level. Does have recliner chair on 1 level she can sleep in. Laundry on 1 level. Equipment available at home: quad cane OBJECTIVE: Patient Identification: patient verbalizing his/her name and date of . Risks and benefits of occupational therapy: Patient informed of risks and benefits of treatment Appearance: supine in bed, hospital gown, soft collar, cervical incision/dressings intact with hemovac x1, B SCDs Alertness: WFL Affect: WNL Cooperation/Behavior: Appropriate dialogue with therapist and Pleasant and cooperative Communication: WFL Pain: Pain rating: greater than a 10 /10, Location: neck Pain Relief Interventions Implemented: Positioning, Rest, Relaxation Training, and Encouraged patient to use AUDIO PRODUCTION ENGINEER Self Care: Assistance Level Dep Max Mod Min CG CS DS ID I Set-Up Comment Feeding X Drinking from water Grooming/Hygiene X Anticipate chair level based on observed AROM Bathing:UB X Anticipate chair level for thoroughness Bathing:LB X Anticipate chair level Dressing:UB X To don personal robe, assist to manage around backside Dressing: LB X Anticipate for clothing mgmt over hips Toileting X Declines urgency, anticipate for clothing mgmt and hygiene Transfers/Bed Mobility: Assistance Level Dep Max Mod Min CG CS DS ID I Set-Up Comment Toilet Transfers Bed Transfers x2 Sit > stand EOB to quad cane in (R) hand (Min x2) Upon stand, pt reaching for therapist's hand on (L) d/t instability. Provided HONING MACHINE SET UP OPERATOR TOOL. Pt then took few steps to transfer to chair with Min x2 (HONING MACHINE SET UP OPERATOR TOOL and quad cane). Stand > sit in chair (Min x2) Cues for hand placement Bed Mobility x1 At trunk via logroll technique towards (L) Cues for technique Patient remained seated in bedside chair at end of session. Chair alarm intact. Call hylton and telephone within reach. RN aware of patient location and mobility status. Patient instructed to call RN assist for all mobility. Endurance for Self Care: Impaired Static Sitting Balance: WFL Dynamic Sitting Balance: WFL UE Motor: BUE AROM WFL with exception of shoulder flexion only tested to 90* 2/2 cervical surgery Strength NT d/t increased pain but observed at least 3+ Certified Ethical Hacker strength WFL Denies numbness/tingling Vision/Perception: WFL Cognition: Orientation: Oriented to person, place, date, and situation Follows Commands: WFL Attention: WNL Memory: WFL Problem Solving: WFL Safety/Judgement: WFL Sequencing: WFL Other Specialized Tests: None Patient/Family Education: Pt instructed in roles, goals, treatment plan: demonstrated good verbal understanding. Educated pt on WBAT and no heavy bending/lifting/twisting, OOBTC at least x1 hour and not to mobilize without staff assist, gentle AROM of B shoulders DME: With Patients permission ordered no equipment via [employer] Order. [facility] any [facility] at [phone]. 6 Clicks Daily Activity OT 04/01/2023 Help from another person Eating meals 4 Help from another person taking care of personal grooming 3 Help from another person bathing 3 Help from another person putting on and taking off regular upper body clothing 3 Help from another person putting on and taking off regular lower body clothing 3 Help from another person toileting 3 OT 6 Clicks Score 19 6 Click Score Guidelines: 1 - Unable = Total/Dependent Assist 2 - A lot = Max/Moderate Assist 3 - A little = Mi (more content not included)... [facility] [employer] [facility] 04-01-2023 Note EXAMINATION: XR C-SP INE AP+LATERAL 2 VIEWS 04/01/2023 04:47 AM CLINICAL HISTORY: Postoperative evaluation ASSOCIATED DIAGNOSIS: Postoperative evaluation ORDERING PROVIDER: JOSE GUADALUPE COELLO TECHNOLOGISTS NOTE: COMPARISON: CT of the cervical spine dated March 23, 2023 FINDINGS: Postsurgical changes are seen to the cervical spine from C4 to C7 laminoplasty. There is no malalignment. The hardware is intact. Midline skin justine are seen with minimal soft tissue gas posteriorly from recent surgery. A surgical drain is in place. There is no significant prevertebral soft tissue thickening. IMPRESSION: Postsurgical changes without acute complication. MACRO: None [facility] [employer] [facility] 04-01-2023 Note ORTHOPAEDIC SURGERY PROGRESS NOTE SUBJECTIVE: No acute events overnight. AFVSS. Pain is well controlled. OBJECTIVE: Patient Vitals for the past 24 hrs: BP Temp Temp src Pulse Resp SpO2 O2 Device O2 Flow Rate (l/min) 03/31/23 2050 133/66 97.7 ???F (36.5 ???C) Oral 84 15 97 % Room air -- 03/31/23 1800 155/57 97.7 ???F (36.5 ???C) Oral 76 15 94 % Room air -- 03/31/23 1541 153/75 97.9 ???F (36.6 ???C) Oral 83 16 99 % Room air -- 03/31/23 1416 160/78 -- -- 77 11 99 % -- -- 03/31/23 1401 98/77 -- -- 75 12 100 % -- -- 03/31/23 1345 165/68 -- -- 75 11 100 % -- -- 03/31/23 1330 153/61 -- -- 77 13 99 % -- -- 03/31/23 1329 -- -- -- 76 15 99 % Nasal cannula 2 03/31/23 1328 -- -- -- 78 9 89 % Room air -- 03/31/23 1319 159/84 98.3 ???F (36.8 ???C) Temporal 84 10 97 % -- -- 03/31/23 1318 -- -- -- 88 12 96 % -- -- 03/31/23 0903 146/81 96.8 ???F (36 ???C) Oral 78 18 100 % Room air -- Basic Metabolic Panel None Intake/Output Summary (Last 24 hours) at 04/01/2023 0513 Last data filed at 04/01/2023 0200 Gross per 24 hour Intake 1554.8 ml Output 515 ml Net 1039.8 ml PHYSICAL EXAM: Gen: NAD, A AND O x3 Normal chest rise with respiration RRR to peripheral palpation Spine Exam: - 5/5 motor bilateral deltoids, triceps, biceps, HG - 5/5 motor bilateral KF/KE, PF/DF/EHL - Sensation intact throughout bilateral upper and lower extremities - Bilateral upper and lower extremities warm and well perfused ASSESSMENT AND PLAN: Massimo Banerjee is a 72 year old female s/p C4-7 laminoplasty w/ Dr. Vergara on 03/31 - Weightbearing: AT, no heavy lifting/bending/twisting - Dressing: c/d/i - Keep splint dry, use rest, ice, elevation, and compression PRN for pain - Drains: Hvx1, output 30,110 - Diet: Regular - DVT Prophylaxis: SCDs - Antibiotics: periop ancef - Consults: PT/OT, appreciate recs - XR obtained this AM DISPO: pending PT, drain Jose Guadalupe Coello MD Orthopaedic Surgery, PGY 2 Ortho Team A Pager [phone] (JustGo Chat works best - please include all of Team A in [employer] messages) Additional Team A: Charlie Solis MD ([phone]) After 5 pm and on weekends, please page consumer affairs specialist resident ([phone]) with questions or concerns. [facility] [employer] [facility] 03-31-2023 Note I have reviewed the patient's History and Physical Examination. I have personally seen and evaluated the patient, repeating morales portions. There is no significant interval change. Surgery is still indicated. Yes Consent reviewed and signed by patient/family: Yes Operative site verified and marked: Yes Tammy Ridley MD Spine Fellow Orthopaedic On-Call Pager at [phone] [facility] [employer] [facility] 03-23-2023 History of Presen t illness Narrative DX: Cervical spondylosis with myelopathy LV: [id number] Ms Banerjee comes in today with family. It is her preoperative appointment. We spent about 45 minutes talking about the upcoming surgery. They understand the importance of regular bowel habits going into surgery. They understand it's extremely important to keep her head up as much as possible and make sure to check her deltoid function at least twice a day. All their questions were answered. We reviewed the Generalities, Expectations and Home Instructions concerning the surgery. We reviewed the MRI and CT scan and discussed the surgical plan. The Risks of Surgery Form and the Informed Consent were signed by the patient and me. They will follow up the day of their surgery. documented in this encounter [facility] [employer] [facility] 03-23-2023 Instructions Dee Mireles APRN-SUPERVISOR [employer] - 03/23/2023 11:05 AM EDT On the morning of your surgery please take only the following medications, with a small sip of water: atorvastatin (LIPITOR) 20 mg tablet CARvedilol (COREG) 25 MG tablet ursodiol (ACTIGALL) 250 MG TABS tablet cycloSPORINE (RESTASIS OP) cetirizine (ZyrTEC Allergy) 10 MG tablet levothyroxine (SYNTHROID) 100 MCG tablet Do not take any Aspirin 7 days before surgery .Do not take any Meloxicam ,Ibuprofen, Aleve, Advil, or Motrin or any other NSAIDS 3 days before surgery . May take over the counter Acetaminophen (Tylenol) as needed for pain Please hold all Co Q 10 , Vitamin E, Muldrow 3, fish oil and herbal supplements for 1 week prior to surgery Do not take Valsartan,hydrochlorothiazide morning of surgery Don't take any metformin evening before and the morning of surgery Do not take any diabetes medication on the morning of the surgery documented in this encounter [facility] 03-23-2023 Instructions Dee Mireles APRN-CNP - 03/23/2023 11:05 AM EDT On the morning of your surgery please take only the following medications, with a small sip of water: atorvastatin (LIPITOR) 20 mg tablet CARvedilol (COREG) 25 MG tablet ursodiol (ACTIGALL) 250 MG TABS tablet cycloSPORINE (RESTASIS OP) cetirizine (ZyrTEC Allergy) 10 MG tablet levothyroxine (SYNTHROID) 100 MCG tablet Do not take any Aspirin 7 days before surgery .Do not take any Meloxicam ,Ibuprofen, Aleve, Advil, or Motrin or any other NSAIDS 3 days before surgery . May take over the counter Acetaminophen (Tylenol) as needed for pain Please hold all Co Q 10 , Vitamin E, Muldrow 3, fish oil and herbal supplements for 1 week prior to surgery Do not take Valsartan,hydrochlorothiazide morning of surgery Don't take any metformin evening before and the morning of surgery Do not take any diabetes medication on the morning of the surgery documented in this encounter [facility] 03-23-2023 Evaluation note Patient was identified by name and date of . Kassandra Griggs Patient at risk for falls:No Falls Risk protocol implemented: No [facility] 03-23-2023 Miscellaneous Notes Formattin g of this note might be different from the original. Patient was identified by name and date of . Kassandra Griggs Patient at risk for falls:No Falls Risk protocol implemented: No Images from the original note were not included. Presurgical Evaluation (Pre-Admission Testing) Consultation Massimo Banerjee, [id number] 72 year old Female 03/23/2023 Consult placed to PSE by Dr. Vergara Patient needs a PSE TELEPHONE ASSESSMENT Total Score: 4 1 Patient has exhibited symptoms of Diabetes in the past. 2 Patient is on more than 2 antihypertension medications. 1 Patient has history of hyperlipidemia. Massimo Banerjee is scheduled for LAMINOPLASTY, POSTERIOR CERVICAL on 03/31/2023. Preop diagnosis of: Pre-Op Diagnosis Codes: * Cervical spondylosis with myelopathy [M47.12] HISTORY OF PRESENT ILLNESS: Patient report neck pain that started many years ,pain has gotten worse over past 1 year . Surgical intervention warranted . Patient is here for presurgical optimization and education prior to surgery. RECENT ILLNESS: Serious illness or hospitalization within the last six months. No STOP BANG: STOP-BANG Row Name 03/23/23 1049 History of sleep apnea? No Snoring No Tired/Fatigued No Observed Apnea No Pressure: Hypertension Yes BMI greater than 35 0 Age greater than 50 1 Neck circ greater than 40cm (15.75 ) No Gender male? 0 Score 2 ALLERGIES: Allergies Allergen Reactions Morphine Nickel Penicillins Sulfites Patient Active Problem List: Cervical spondylosis with myelopathy [M47.12] High blood cholesterol [E78.00] Essential hypertension [I10] OAB (overactive bladder) [N32.81] Other specified hypothyroidism [E03.8] Type 2 diabetes mellitus without complication, without long-term current use of insulin (HCC) [E11.9] SOCIAL HISTORY: has no history on file for drug use. Social History Tobacco Use Smoking status: Former Current packs/day: 0.00 Types: Cigarettes Smokeless tobacco: Never MEDICAL HISTORY: No past medical history on file. SURGICAL HISTORY: No past surgical history on file. ANESTHESIA REVIEW OF SYSTEMS: Eyes/ENT: Eye Glasses and Snoring,sinus surgery ,right hearing deficit, dry eyes Teeth: Negative Pulmonary: Negative Cardio-vascular: HTN,HLD and denies CP, SOB, SCANLON,Syncope or palpitations G.I./ Hepatic: occ GERD,primary biliary cirrhosis -followed by specialists ,hernia repairs Renal/: OAB -stimulator in place ,CKD Neurological: Negative Gynecological: hysterectomy Psychiatric: anxiety Musculoskeletal: b/l toe surgery ,b/l RTC repair ,b/l TKR Cervical spondylosis with myelopathy Endocrine: DM 2 BG 183 @ 1030 ,hypothyroid Hematologic: anemia ,plt 109 Constitutional: Negative Skin: excision pilonidal cyst , excision ganglion cyst b/l PREVIOUS ANESTHETIC COMPLICATIONS: Anesthesia Complications None FAMILY HISTORY OF ANESTHETIC COMPLICATIONS: Yessister post op headache ,father slow to wake up CURRENT MEDICATION LIST: Current Outpatient Medications Medication Sig Dispense Refill atorvastatin (LIPITOR) 20 mg tablet Take 20 mg by mouth daily. hydrochlorothiazide (MICROZIDE) 12.5 MG capsule Take 12.5 mg by mouth daily. CARvedilol (COREG) 25 MG tablet Take 25 mg by mouth 2 times daily. valsartan (DIOVAN) 320 MG tablet Take 320 mg by mouth daily. metformin (GLUCOPHAGE) 500 MG tablet Take 500 mg by mouth 2 times daily (with meals). ursodiol (ACTIGALL) 250 MG TABS tablet Take 500 mg by mouth 2 times daily. meloxicam (MOBIC) 15 MG tablet Take 15 mg by mouth daily. TRAZODONE HCL ORAL Take 50 mg by mouth at bedtime. hydrocodone-acetaminophen (NORCO) 5-325 mg per tablet Take 2 Tablets by mouth. (Patient not taking: Reported on 02/11/2023) cycloSPORINE (RESTASIS OP) by Ophthalmic route. cetirizine (ZyrTEC Allergy) 10 MG tablet Take 10 mg by mouth. Triamcinolone Acetonide (NASACORT NASAL) Use in each nostril. aspirin EC 81 MG tablet Take 81 mg by mouth daily. Calcium Citrate 150 MG CAPS Take by mouth 3 times daily. Cholecalciferol (Vitamin D) 50 MCG (2000 UT) TABS Take by mouth. Muldrow 3-6-9 Fatty Acids (TRIPLE OMEGA-3-6-9 ORAL) Take by mouth. Coenzyme Q10 (Co Q 10) 100 MG CAPS Take by mouth. levothyroxine (SYNTHROID) 100 MCG tablet Take 100 mcg by mouth daily. No current facility-administered medications for this visit. HEIGHT: 5' 1 WEIGHT: No prior weight on file BMI: 30.04 VITAL SIGNS:BP 123/67 Pulse 79 Temp 98 F (36.7 C) (Temporal) Resp 12 Ht 1.549 m (5' 1 ) Wt 72.1 kg (159 lb) SpO2 100% BMI 30.04 kg/m PAIN ASSESSMENT: Severity: 1 Location: neck AIRWAY EXAM: Mallampati score: 3 TMD: Adequate Neck Extension/ Flexion: Limited Mouth Opening: Adequate Dentition: Intact Micrognathia/Overbite: No PHYSICAL EXAM: Eyes: Wears glasses ENT: Mucosa normal, Neck supple, Carotids normal pulse without bruits, and Thyroid normal Pulmonary: Chest clear to auscultation bilaterally Cardiovascular: RRR with S1S2 and No murmurs, gallops, or rubs Abdomen: Deferred Extremities: No gross or obvious abnormalities Neurologic: Awake, alert, oriented Psychiatric: alert and oriented to person, place and time, Appropriate mood/affect Skin: Deferred FUNCTIONAL CAPACITY: Uses a cane and around 4 mets, patient able to walk 1/2 block , able to climb stairs and shop Assessment and Plan: 1) pre surgical evaluation 2) Cervical spondylosis with myelopathy -Stop aspirin 7 days before surgery ,Chlorhexidine soap and instructions given to patient,Proceed to surgery 3) HTN -Do not take Valsartan,hydrochlorothiazide morning of surgery 4 ) DM 2 -Don't take any metformin evening before and the morning of surgery LABS, TESTS, CONSULTS ORDERED: Orders & Meds Signed During This Encounter GLUCOSE, FINGERSTICK-IN OFFICE [[id number]] BASIC METABOLIC PANEL [CH8] HEPATIC FUNCTION PANEL [HEPATIC] COMPLETE BLOOD COUNT W/DIFF (RAPID RESPONSE LABS) PROTHROMBIN TIME AND INR [PT] PARTIAL THROMBOPLASTIN TIME [APTT] TYPE AND SCREEN [TS] Abo Rh Type Complete Blood Count W/Diff EKG 12-LEAD TRACING [31930] LABORATORY DATA: Contains abnormal data HEMOGLOBIN A1C Order: [id number] Component Ref Range & Units 3 mo ago Hemoglobin A1C HPLC 4.7 - 5.6 % 6.0 High CBC WBC RBC Hgb Hct MCV RDW Plt 03/23/23 1034 4.0 3.73 11.1 33[address] Vergara made aware platelet count Basic Metabolic Panel Na K Cl CO2 Gap Glu BUN Cr Ca Mg PO4 03/23/23 1034 140 4.2 104 26 14 187 40 1.31 9.9 INR (no units) Date Value 03/23/2023 1.13 (H) Type & Screen (Last result in the past 30 days) ABO Rh Screen Int. 03/23/23 1048 A Positive LFT's (last 3 years, up to 5 values) T Prot Albumin D Bili T Bili Alk Phos ALT AST 03/23/23 1034 6.2 3.9 0.20 0.7 138 33 39 TESTS REVIEWED: I personally reviewed and interpreting and findings were: CXRay: No Chest x-ray found EK03/23/2023 Normal sinus rhythm Nonspecific ST abnormality Abnormal ECG No previous ECGs available ECHO: Last Echocardiogram: none found going back to 05/01/2015 Stress test date: Last StressTest: none found going back to 05/01/2015 Patient is medically optimized for surgery. This note will be forwarded to the referring provider. Patient should follow up with referring provider. Interviewer signature: ALEXANDER Alvarez 10:50 AM 03/23/2023 documented in this encounter [facility] 03-23-2023 Miscellaneous Notes Formattin g of this note might be different from the original. Patient was identified by name and date of . Kassandra Anson Patient at risk for falls:No Falls Risk protocol implemented: No Images from the original note were not included. Presurgical Evaluation (Pre-Admission Testing) Consultation Massimo Banerjee, [id number] 72 year old Female 03/23/2023 Consult placed to PSE by Dr. Vergara Patient needs a PSE TELEPHONE ASSESSMENT Total Score: 4 1 Patient has exhibited symptoms of Diabetes in the past. 2 Patient is on more than 2 antihypertension medications. 1 Patient has history of hyperlipidemia. Massimo Banerjee is scheduled for LAMINOPLASTY, POSTERIOR CERVICAL on 03/31/2023. Preop diagnosis of: Pre-Op Diagnosis Codes: * Cervical spondylosis with myelopathy [M47.12] HISTORY OF PRESENT ILLNESS: Patient report neck pain that started many years ,pain has gotten worse over past 1 year . Surgical intervention warranted . Patient is here for presurgical optimization and education prior to surgery. RECENT ILLNESS: Serious illness or hospitalization within the last six months. No STOP BANG: STOP-BANG Row Name 03/23/23 1049 History of sleep apnea? No Snoring No Tired/Fatigued No Observed Apnea No Pressure: Hypertension Yes BMI greater than 35 0 Age greater than 50 1 Neck circ greater than 40cm (15.75 ) No Gender male? 0 Score 2 ALLERGIES: Allergies Allergen Reactions Morphine Nickel Penicillins Sulfites Patient Active Problem List: Cervical spondylosis with myelopathy [M47.12] High blood cholesterol [E78.00] Essential hypertension [I10] OAB (overactive bladder) [N32.81] Other specified hypothyroidism [E03.8] Type 2 diabetes mellitus without complication, without long-term current use of insulin (HCC) [E11.9] SOCIAL HISTORY: has no history on file for drug use. Social History Tobacco Use Smoking status: Former Current packs/day: 0.00 Types: Cigarettes Smokeless tobacco: Never MEDICAL HISTORY: No past medical history on file. SURGICAL HISTORY: No past surgical history on file. ANESTHESIA REVIEW OF SYSTEMS: Eyes/ENT: Eye Glasses and Snoring,sinus surgery ,right hearing deficit, dry eyes Teeth: Negative Pulmonary: Negative Cardio-vascular: HTN,HLD and denies CP, SOB, SCANLON,Syncope or palpitations G.I./ Hepatic: occ GERD,primary biliary cirrhosis -followed by specialists ,hernia repairs Renal/: OAB -stimulator in place ,CKD Neurological: Negative Gynecological: hysterectomy Psychiatric: anxiety Musculoskeletal: b/l toe surgery ,b/l RTC repair ,b/l TKR Cervical spondylosis with myelopathy Endocrine: DM 2 BG 183 @ 1030 ,hypothyroid Hematologic: anemia ,plt 109 Constitutional: Negative Skin: excision pilonidal cyst , excision ganglion cyst b/l PREVIOUS ANESTHETIC COMPLICATIONS: Anesthesia Complications None FAMILY HISTORY OF ANESTHETIC COMPLICATIONS: Yessister post op headache ,father slow to wake up CURRENT MEDICATION LIST: Current Outpatient Medications Medication Sig Dispense Refill atorvastatin (LIPITOR) 20 mg tablet Take 20 mg by mouth daily. hydrochlorothiazide (MICROZIDE) 12.5 MG capsule Take 12.5 mg by mouth daily. CARvedilol (COREG) 25 MG tablet Take 25 mg by mouth 2 times daily. valsartan (DIOVAN) 320 MG tablet Take 320 mg by mouth daily. metformin (GLUCOPHAGE) 500 MG tablet Take 500 mg by mouth 2 times daily (with meals). ursodiol (ACTIGALL) 250 MG TABS tablet Take 500 mg by mouth 2 times daily. meloxicam (MOBIC) 15 MG tablet Take 15 mg by mouth daily. TRAZODONE HCL ORAL Take 50 mg by mouth at bedtime. hydrocodone-acetaminophen (NORCO) 5-325 mg per tablet Take 2 Tablets by mouth. (Patient not taking: Reported on 02/11/2023) cycloSPORINE (RESTASIS OP) by Ophthalmic route. cetirizine (ZyrTEC Allergy) 10 MG tablet Take 10 mg by mouth. Triamcinolone Acetonide (NASACORT NASAL) Use in each nostril. aspirin EC 81 MG tablet Take 81 mg by mouth daily. Calcium Citrate 150 MG CAPS Take by mouth 3 times daily. Cholecalciferol (Vitamin D) 50 MCG (2000 UT) TABS Take by mouth. Muldrow 3-6-9 Fatty Acids (TRIPLE OMEGA-3-6-9 ORAL) Take by mouth. Coenzyme Q10 (Co Q 10) 100 MG CAPS Take by mouth. levothyroxine (SYNTHROID) 100 MCG tablet Take 100 mcg by mouth daily. No current facility-administered medications for this visit. HEIGHT: 5' 1 WEIGHT: No prior weight on file BMI: 30.04 VITAL SIGNS:BP 123/67 Pulse 79 Temp 98 F (36.7 C) (Temporal) Resp 12 Ht 1.549 m (5' 1 ) Wt 72.1 kg (159 lb) SpO2 100% BMI 30.04 kg/m PAIN ASSESSMENT: Severity: 1 Location: neck AIRWAY EXAM: Mallampati score: 3 TMD: Adequate Neck Extension/ Flexion: Limited Mouth Opening: Adequate Dentition: Intact Micrognathia/Overbite: No PHYSICAL EXAM: Eyes: Wears glasses ENT: Mucosa normal, Neck supple, Carotids normal pulse without bruits, and Thyroid normal Pulmonary: Chest clear to auscultation bilaterally Cardiovascular: RRR with S1S2 and No murmurs, gallops, or rubs Abdomen: Deferred Extremities: No gross or obvious abnormalities Neurologic: Awake, alert, oriented Psychiatric: alert and oriented to person, place and time, Appropriate mood/affect Skin: Deferred FUNCTIONAL CAPACITY: Uses a cane and around 4 mets, patient able to walk 1/2 block , able to climb stairs and shop Assessment and Plan: 1) pre surgical evaluation 2) Cervical spondylosis with myelopathy -Stop aspirin 7 days before surgery ,Chlorhexidine soap and instructions given to patient,Proceed to surgery 3) HTN -Do not take Valsartan,hydrochlorothiazide morning of surgery 4 ) DM 2 -Don't take any metformin evening before and the morning of surgery LABS, TESTS, CONSULTS ORDERED: Orders & Meds Signed During This Encounter GLUCOSE, FINGERSTICK-IN OFFICE [[id number]] BASIC METABOLIC PANEL [CH8] HEPATIC FUNCTION PANEL [HEPATIC] COMPLETE BLOOD COUNT W/DIFF (RAPID RESPONSE LABS) PROTHROMBIN TIME AND INR [PT] PARTIAL THROMBOPLASTIN TIME [APTT] TYPE AND SCREEN [TS] Abo Rh Type Complete Blood Count W/Diff EKG 12-LEAD TRACING [39912] LABORATORY DATA: Contains abnormal data HEMOGLOBIN A1C Order: [id number] Component Ref Range & Units 3 mo ago Hemoglobin A1C HPLC 4.7 - 5.6 % 6.0 High CBC WBC RBC Hgb Hct MCV RDW Plt 03/23/23 1034 4.0 3.73 11.1 33[address] Vergara made aware platelet count Basic Metabolic Panel Na K Cl CO2 Gap Glu BUN Cr Ca Mg PO4 03/23/23 1034 140 4.2 104 26 14 187 40 1.31 9.9 INR (no units) Date Value 03/23/2023 1.13 (H) Type & Screen (Last result in the past 30 days) ABO Rh Screen Int. 03/23/23 1048 A Positive LFT's (last 3 years, up to 5 values) T Prot Albumin D Bili T Bili Alk Phos ALT AST 03/23/23 1034 6.2 3.9 0.20 0.7 138 33 39 TESTS REVIEWED: I personally reviewed and interpreting and findings were: CXRay: No Chest x-ray found EK03/23/2023 Normal sinus rhythm Nonspecific ST abnormality Abnormal ECG No previous ECGs available ECHO: Last Echocardiogram: none found going back to 05/01/2015 Stress test date: Last StressTest: none found going back to 05/01/2015 Patient is medically optimized for surgery. This note will be forwarded to the referring provider. Patient should follow up with referring provider. Interviewer signature: ALEXANDER Alvarez 10:50 AM 03/23/2023 documented in this encounter [facility] 03-22-2023 Note Presurgical Evaluati on (Pre-Admission Testing) Consultation Massimo Banerjee, [id number] 72 year old Female 03/23/2023 Consult placed to PSE by Dr. Vergara Patient needs a PSE TELEPHONE ASSESSMENT Total Score: 4 1 Patient has exhibited symptoms of Diabetes in the past. 2 Patient is on more than 2 antihypertension medications. 1 Patient has history of hyperlipidemia. Massimo Banerjee is scheduled for LAMINOPLASTY, POSTERIOR CERVICAL on 03/31/2023. Preop diagnosis of: Pre-Op Diagnosis Codes: * Cervical spondylosis with myelopathy [M47.12] HISTORY OF PRESENT ILLNESS: Patient report neck pain that started many years ,pain has gotten worse over past 1 year . Surgical intervention warranted . Patient is here for presurgical optimization and education prior to surgery. RECENT ILLNESS: Serious illness or hospitalization within the last six months. No STOP BANG: STOP-BANG Row Name 03/23/23 1049 History of sleep apnea? No Snoring No Tired/Fatigued No Observed Apnea No Pressure: Hypertension Yes BMI greater than 35 0 Age greater than 50 1 Neck circ greater than 40cm (15.75 ) No Gender male? 0 Score 2 ALLERGIES: Allergies Allergen Reactions Morphine Nickel Penicillins Sulfites Patient Active Problem List: Cervical spondylosis with myelopathy [M47.12] High blood cholesterol [E78.00] Essential hypertension [I10] OAB (overactive bladder) [N32.81] Other specified hypothyroidism [E03.8] Type 2 diabetes mellitus without complication, without long-term current use of insulin (HCC) [E11.9] SOCIAL HISTORY: has no history on file for drug use. Social History Tobacco Use Smoking status: Former Current packs/day: 0.00 Types: Cigarettes Smokeless tobacco: Never MEDICAL HISTORY: No past medical history on file. SURGICAL HISTORY: No past surgical history on file. ANESTHESIA REVIEW OF SYSTEMS: Eyes/ENT: Eye Glasses and Snoring,sinus surgery ,right hearing deficit, dry eyes Teeth: Negative Pulmonary: Negative Cardio-vascular: HTN,HLD and denies CP, SOB, SCANLON,Syncope or palpitations G.I./ Hepatic: occ GERD,primary biliary cirrhosis -followed by specialists ,hernia repairs Renal/: OAB -stimulator in place ,CKD Neurological: Negative Gynecological: hysterectomy Psychiatric: anxiety Musculoskeletal: b/l toe surgery ,b/l RTC repair ,b/l TKR Cervical spondylosis with myelopathy Endocrine: DM 2 BG 183 @ 1030 ,hypothyroid Hematologic: anemia ,plt 109 Constitutional: Negative Skin: excision pilonidal cyst , excision ganglion cyst b/l PREVIOUS ANESTHETIC COMPLICATIONS: Anesthesia Complications None FAMILY HISTORY OF ANESTHETIC COMPLICATIONS: Yessister post op headache ,father slow to wake up CURRENT MEDICATION LIST: Current Outpatient Medications Medication Sig Dispense Refill atorvastatin (LIPITOR) 20 mg tablet Take 20 mg by mouth daily. hydrochlorothiazide (MICROZIDE) 12.5 MG capsule Take 12.5 mg by mouth daily. CARvedilol (COREG) 25 MG tablet Take 25 mg by mouth 2 times daily. valsartan (DIOVAN) 320 MG tablet Take 320 mg by mouth daily. metformin (GLUCOPHAGE) 500 MG tablet Take 500 mg by mouth 2 times daily (with meals). ursodiol (ACTIGALL) 250 MG TABS tablet Take 500 mg by mouth 2 times daily. meloxicam (MOBIC) 15 MG tablet Take 15 mg by mouth daily. TRAZODONE HCL ORAL Take 50 mg by mouth at bedtime. hydrocodone-acetaminophen (NORCO) 5-325 mg per tablet Take 2 Tablets by mouth. (Patient not taking: Reported on 02/11/2023) cycloSPORINE (RESTASIS OP) by Ophthalmic route. cetirizine (ZyrTEC Allergy) 10 MG tablet Take 10 mg by mouth. Triamcinolone Acetonide (NASACORT NASAL) Use in each nostril. aspirin EC 81 MG tablet Take 81 mg by mouth daily. Calcium Citrate 150 MG CAPS Take by mouth 3 times daily. Cholecalciferol (Vitamin D) 50 MCG (2000 UT) TABS Take by mouth. Muldrow 3-6-9 Fatty Acids (TRIPLE OMEGA-3-6-9 ORAL) Take by mouth. Coenzyme Q10 (Co Q 10) 100 MG CAPS Take by mouth. levothyroxine (SYNTHROID) 100 MCG tablet Take 100 mcg by mouth daily. No current facility-administered medications for this visit. HEIGHT: 5' 1 WEIGHT: No prior weight on file BMI: 30.04 VITAL SIGNS:BP 123/67 Pulse 79 Temp 98 ???F (36.7 ???C) (Temporal) Resp 12 Ht 1.549 m (5' 1 ) Wt 72.1 kg (159 lb) SpO2 100% BMI 30.04 kg/m??? PAIN ASSESSMENT: Severity: 1 Location: neck AIRWAY EXAM: Mallampati score: 3 TMD: Adequate Neck Extension/ Flexion: Limited Mouth Opening: Adequate Dentition: Intact Micrognathia/Overbite: No PHYSICAL EXAM: Eyes: Wears glasses ENT: Mucosa normal, Neck supple, Carotids normal pulse without bruits, and Thyroid normal Pulmonary: Chest clear to auscultation bilaterally Cardiovascular: RRR with S1S2 and No murmurs, gallops, or rubs Abdomen: Deferred Extremities: No gross or obvious abnormalities Neurologic: Awake, alert, oriented Psychiatric: alert and oriented to person, place and time, Appropriate mood/affect Skin: (more content not included)... [facility] [employer] [facility] 03-22-2023 Evaluation note Images from the original note were not included. Presurgical Evaluation (Pre-Admission Testing) Consultation Massimo Banerjee, [id number] 72 year old Female 03/23/2023 Consult placed to PSE by Dr. Vergara Patient needs a PSE TELEPHONE ASSESSMENT Total Score: 4 1 Patient has exhibited symptoms of Diabetes in the past. 2 Patient is on more than 2 antihypertension medications. 1 Patient has history of hyperlipidemia. Massimo Banerjee is scheduled for LAMINOPLASTY, POSTERIOR CERVICAL on 03/31/2023. Preop diagnosis of: Pre-Op Diagnosis Codes: * Cervical spondylosis with myelopathy [M47.12] HISTORY OF PRESENT ILLNESS: Patient report neck pain that started many years ,pain has gotten worse over past 1 year . Surgical intervention warranted . Patient is here for presurgical optimization and education prior to surgery. RECENT ILLNESS: Serious illness or hospitalization within the last six months. No STOP BANG: STOP-BANG Row Name 03/23/23 1049 History of sleep apnea? No Snoring No Tired/Fatigued No Observed Apnea No Pressure: Hypertension Yes BMI greater than 35 0 Age greater than 50 1 Neck circ greater than 40cm (15.75 ) No Gender male? 0 Score 2 ALLERGIES: Allergies Allergen Reactions Morphine Nickel Penicillins Sulfites Patient Active Problem List: Cervical spondylosis with myelopathy [M47.12] High blood cholesterol [E78.00] Essential hypertension [I10] OAB (overactive bladder) [N32.81] Other specified hypothyroidism [E03.8] Type 2 diabetes mellitus without complication, without long-term current use of insulin (HCC) [E11.9] SOCIAL HISTORY: has no history on file for drug use. Social History Tobacco Use Smoking status: Former Current packs/day: 0.00 Types: Cigarettes Smokeless tobacco: Never MEDICAL HISTORY: No past medical history on file. SURGICAL HISTORY: No past surgical history on file. ANESTHESIA REVIEW OF SYSTEMS: Eyes/ENT: Eye Glasses and Snoring,sinus surgery ,right hearing deficit, dry eyes Teeth: Negative Pulmonary: Negative Cardio-vascular: HTN,HLD and denies CP, SOB, SCANLON,Syncope or palpitations G.I./ Hepatic: occ GERD,primary biliary cirrhosis -followed by specialists ,hernia repairs Renal/: OAB -stimulator in place ,CKD Neurological: Negative Gynecological: hysterectomy Psychiatric: anxiety Musculoskeletal: b/l toe surgery ,b/l RTC repair ,b/l TKR Cervical spondylosis with myelopathy Endocrine: DM 2 BG 183 @ 1030 ,hypothyroid Hematologic: anemia ,plt 109 Constitutional: Negative Skin: excision pilonidal cyst , excision ganglion cyst b/l PREVIOUS ANESTHETIC COMPLICATIONS: Anesthesia Complications None FAMILY HISTORY OF ANESTHETIC COMPLICATIONS: Yessister post op headache ,father slow to wake up CURRENT MEDICATION LIST: Current Outpatient Medications Medication Sig Dispense Refill atorvastatin (LIPITOR) 20 mg tablet Take 20 mg by mouth daily. hydrochlorothiazide (MICROZIDE) 12.5 MG capsule Take 12.5 mg by mouth daily. CARvedilol (COREG) 25 MG tablet Take 25 mg by mouth 2 times daily. valsartan (DIOVAN) 320 MG tablet Take 320 mg by mouth daily. metformin (GLUCOPHAGE) 500 MG tablet Take 500 mg by mouth 2 times daily (with meals). ursodiol (ACTIGALL) 250 MG TABS tablet Take 500 mg by mouth 2 times daily. meloxicam (MOBIC) 15 MG tablet Take 15 mg by mouth daily. TRAZODONE HCL ORAL Take 50 mg by mouth at bedtime. hydrocodone-acetaminophen (NORCO) 5-325 mg per tablet Take 2 Tablets by mouth. (Patient not taking: Reported on 02/11/2023) cycloSPORINE (RESTASIS OP) by Ophthalmic route. cetirizine (ZyrTEC Allergy) 10 MG tablet Take 10 mg by mouth. Triamcinolone Acetonide (NASACORT NASAL) Use in each nostril. aspirin EC 81 MG tablet Take 81 mg by mouth daily. Calcium Citrate 150 MG CAPS Take by mouth 3 times daily. Cholecalciferol (Vitamin D) 50 MCG (2000 UT) TABS Take by mouth. [place] 3-6-9 Fatty Acids (TRIPLE OMEGA-3-6-9 ORAL) Take by mouth. Coenzyme Q10 (Co Q 10) 100 MG CAPS Take by mouth. levothyroxine (SYNTHROID) 100 MCG tablet Take 100 mcg by mouth daily. No current facility-administered medications for this visit. HEIGHT: 5' 1 WEIGHT: No prior weight on file BMI: 30.04 VITAL SIGNS:BP 123/67 Pulse 79 Temp 98 F (36.7 C) (Temporal) Resp 12 Ht 1.549 m (5' 1 ) Wt 72.1 kg (159 lb) SpO2 100% BMI 30.04 kg/m PAIN ASSESSMENT: Severity: 1 Location: neck AIRWAY EXAM: Mallampati score: 3 TMD: Adequate Neck Extension/ Flexion: Limited Mouth Opening: Adequate Dentition: Intact Micrognathia/Overbite: No PHYSICAL EXAM: Eyes: Wears glasses ENT: Mucosa normal, Neck supple, Carotids normal pulse without bruits, and Thyroid normal Pulmonary: Chest clear to auscultation bilaterally Cardiovascular: RRR with S1S2 and No murmurs, gallops, or rubs Abdomen: Deferred Extremities: No gross or obvious abnormalities Neurologic: Awake, alert, oriented Psychiatric: alert and oriented to person, place and time, Appropriate mood/affect Skin: Deferred FUNCTIONAL CAPACITY: Uses a cane and around 4 mets, patient able to walk 1/2 block , able to climb stairs and shop Assessment and Plan: 1) pre surgical evaluation 2) Cervical spondylosis with myelopathy -Stop aspirin 7 days before surgery ,Chlorhexidine soap and instructions given to patient,Proceed to surgery 3) HTN -Do not take Valsartan,hydrochlorothiazide morning of surgery 4 ) DM 2 -Don't take any metformin evening before and the morning of surgery LABS, TESTS, CONSULTS ORDERED: Orders & Meds Signed During This Encounter GLUCOSE, FINGERSTICK-IN OFFICE [[id number]] BASIC METABOLIC PANEL [CH8] HEPATIC FUNCTION PANEL [HEPATIC] COMPLETE BLOOD COUNT W/DIFF (RAPID RESPONSE LABS) PROTHROMBIN TIME AND INR [PT] PARTIAL THROMBOPLASTIN TIME [APTT] TYPE AND SCREEN [TS] Abo Rh Type Complete Blood Count W/Diff EKG 12-LEAD TRACING [81186] LABORATORY DATA: Contains abnormal data HEMOGLOBIN A1C Order: [id number] Component Ref Range & Units 3 mo ago Hemoglobin A1C HPLC 4.7 - 5.6 % 6.0 High CBC WBC RBC Hgb Hct MCV RDW Plt 03/23/23 1034 4.0 3.73 11.1 33[address] Vergara made aware platelet count Basic Metabolic Panel Na K Cl CO2 Gap Glu BUN Cr Ca Mg PO4 03/23/23 1034 140 4.2 104 26 14 187 40 1.31 9.9 INR (no units) Date Value 03/23/2023 1.13 (H) Type & Screen (Last result in the past 30 days) ABO Rh Screen Int. 03/23/23 1048 A Positive LFT's (last 3 years, up to 5 values) T Prot Albumin D Bili T Bili Alk Phos ALT AST 03/23/23 1034 6.2 3.9 0.20 0.7 138 33 39 TESTS REVIEWED: I personally reviewed and interpreting and findings were: CXRay: No Chest x-ray found EK03/23/2023 Normal sinus rhythm Nonspecific ST abnormality Abnormal ECG No previous ECGs available ECHO: Last Echocardiogram: none found going back to 05/01/2015 Stress test date: Last StressTest: none found going back to 05/01/2015 Patient is medically optimized for surgery. This note will be forwarded to the referring provider. Patient should follow up with referring provider. Interviewer signature: ALEXANDER Alvarez 10:50 AM 03/23/2023 T [facility] 02-11-2023 History of Presen t illness Narrative A soft cervical collar was dispensed to patient in clinic today. Patient was identified by name and date of . Lisa Huff RN Patient at risk for falls:Yes Falls Risk protocol implemented: Yes Ambulates with cane Lisa Huff RN Images from the original note were not included. DX: Cervical myelopathy LV: [id number] Ms Banerjee returns today. She received a ANAHY [id number]. It affected her neck symptoms on the left side but it did not affect her low back pain. INV: MRI cervical performed [id number] IMP: 71yo female significant cervical cord compression, significant clinical myelopathy. PLAN: I again offered her surgery. I am not sure how the ANAHY was done. She can call the office schedule surgery or follow up every 4-6 months. documented in this encounter [facility] 12-24-2022 History of Presen t illness Narrative Patient was identified by name and date of . Lisa Huff RN Patient at risk for falls:No Falls Risk protocol implemented: No Images from the original note were not included. DX: Cervical myelopathy LV: [id number] Ms Banerjee returns today. [facility] pain management refused to do a ANAHY. She is going to talk to her new pain management docs in [place]. INV: MRI cervical performed [id number] IMP: 71yo female significant cervical cord compression PLAN: I told her again I was concerned about her neck. Yes, I wish she can get a cervical 1 time as the temporary relief she experiences from the injection is what she can expect from surgery. She is very atypical as she has mostly lower extremity symptoms. She can call the office and schedule surgery or follow up every 4-6 months. documented in this encounter [facility] 11-10-2022 Evaluation + Plan note Extrac nagi from: Title:NPV Author:Gerry Jerry MD Date :11/10/22 Impression and Plan 72-year-old female with longstanding neck pain that radiates to left shoulder and low back pain that radiates to the left lower extremity. She is myelopathic. She has rather severe cervical spinal canal stenosis. I encouraged the patient to seek surgical intervention based on her deteriorating motor function. I counseled the patient on her condition extensively. Her numerous questions were addressed. She is receiving controlled substances from her current pain provider at [place]. She wishes to continue receiving those prescriptions from them at this time. I offered a referral for psychological care, the patient declined. The patient will follow- up with me as needed. If she decides to switch her care here we will obtain her previous pain management records in full and send the patient for urine drug screen. Patient voiced understanding and agrees with plan of care [facility]06-08-2023 History of Present illness Narrative* Lisa Huff RN - 10/29/2022 9:58 AM EDT Patient was identified by name and date of . Lisa Huff RN Patient at risk for falls:No Falls Risk protocol implemented: No * Geri Vergara MD - 10/28/2022 6:37 AM EDT Images from the original note were not included. DX: Lumbar stenosis rule out cervical myelopathy LV: [id number] Ms Banerjee returns today to review the new cervical MRI. Remember, she received a LESI which DID NOT affect her symptoms INV: MRI cervical performed [id number] IMP: 71yo female significant cervical cord compression PLAN: I mentioned the option of a ANAHY at [facility] if the providers feel appropriate. She realizes the temporary relief the injection gives her is what she can expect permanently from an operation. Saying that, it would delay surgery for 3 months. I am offering her surgery on her cervical spine. I gave her the Risks of Cervical Surgery Form, the Generalities, Expectations and Home Instructions Form andnames of surgeons in the area that I trust. She will consider her options. documented in this [id number] NoteProcedure: Liver sonogram with elastography. Technique: Real-time grayscale, color-flow Doppler, and shear wave elastography (ElastPQ) of the liver. Still images were reviewed. Clinical information: Follow-up cirrhosis Comparison: 03/30/2022 Findings: Liver: Moderately increased and heterogenous echotexture. No focal liver lesion. Sagittal liver dimension: 13.4 cm. Elastography: Mean tissue stiffness 1.39 m/s. Stiffness IQR 0.06 m/s. Gallbladder: More spread out appearance of dependent gallstones with the largest about 13 mm. Negative Salomon sign. More distended gallbladder appearance today with AP measurement about 6 cm versus 4cm. Gallbladder wall thickness: 2 mm. Biliary tree: No intrahepatic biliary dilatation. Common duct diameter: Similar CBD cross-section 7 mm. Pancreas: Partially obscured by bowel gas. Grossly unremarkable. Ascites: None. IMPRESSION: 1. Metavir fibrosis score F2 to F3, [id number]. Slight worsening compared to 6 months ago. 2. Cholelithiasis. No gross indication of cholecystitis. (Previous report had an error in impression #3) 3. More distended gallbladder today. Persistent enlargement of CBD that is not different in 6 months. Consider nuclear medicine hepatobiliary scan if CBD obstruction is suspected clinically. Liver fibrosis staging Metavir Score m/s Normal F0 0.81 -1.22 Normal - Mild F0 - F1 1.22 - 1.37 Mild - Moderate F2 - F3 1.37 - 2.00 Moderate - Severe F3 - F4 2.00 - 2.64+ Final Dictated by: Omar Magallanes MD Dictated DT/TM: 09/30/2022 12:43 pm Signed by: Omar Magallanes MD Signed (Electronic Signature): 09/30/2022 12:53 pm (If Report Is Signed, Electronically Signed in Other Vendor System)[facility]03-09-2023 NoteCONSULTATION PROCEDURE DATE: 07/30/2022 PREOPERATIVE DIAGNOSIS: Bilateral lumbar paravertebral spasms. POSTOPERATIVE DIAGNOSIS: Bilateral lumbar paravertebral spasms. PROCEDURE: Bilateral lumbar trigger point injections. Subsequent to obtaining informed consent, the patient was placed in the upright standing forward flexion position. Alcohol prep was used to sterilize the site in two locations. A 25 gauge needle with 0.125% Marcaine and 40 mg of Kenalog was placed to rest inside the trigger zone. Negative heme. Medication was injected in a slow, fan-like pattern in both locations. Patient tolerated procedure will, will be followed up in the office.[facility] 07-30-2022 NoteCONSULTATION CONSULTATION DATE: 07/30/2022 HISTORY OF PRESENT ILLNESS: This is a 71-year-old female who returns to the clinic status post lumbar epidural steroid injection completed on 07/07/2022. This patient received a lumbar epidural and it afforded only 10% relief. Historically, she has received much better relief, and she is disappointed. Medications include Vansant 5/325 b.i.d., Mobic 15 mg daily, Tylenol and trazodone. Patient has seen Dr. Geri Vergara, neurosurgeon, at [facility], but he has since moved to [facility]. She is going to follow up with him regarding pending fusion surgery. She is complaining of some left leg weakness. She rates her pain today 4/10, describes it as dull. Activities such as twisting, pushing, pulling, standing, walking and bending greatly aggravate her pain. She will occasionally get radiating pain down the lateral and anterior portion of her left leg. She denies any trips or falls. Patient's REVIEW OF SYSTEMS / PAST MEDICAL HISTORY / ALLERGIES and IMAGES have been reviewed and noted on the chart. PHYSICAL EXAM: VITAL SIGNS: Blood pressure 153/78, heart rate is 76. Temperature is 97.3. She is 60 and weighs 76 kg. GENERAL IMPRESSION: Pleasant, appropriate, in no acute distress. FOCUSED EXAM - BACK: Range of motion is functional in lateral rotation and flexion/extension. Paravertebral muscles are spasmodic with trigger points identified bilateral lower erector spinae muscles. Compression of these muscles reproduces the patient's pain symptomatology. No spinal axial pain upon deep compression. Dean's point mildly tender to the right with no radiation. Negative FABERs. MUSCULOSKELETAL: Patient walks unassisted with a stable but antalgic gait. Muscle weakness noted to bilateral quadriceps and right anterior tibialis. NEUROLOGICALLY: Patchy hypoesthesia noted along the L4-L5 distribution to the left that does extend below the knee. Blunted bilateral patellar reflexes. DIAGNOSIS: Lumbar radiculitis, lumbar paravertebral spasms, lumbar degenerative disc disease. PLAN: The patient will receive bilateral lumbar trigger point injections in the clinic, which she does consent to. We discussed an inversion table, and patient does agree to seek one out for her house. We will prescribe aqua therapy 2-3 times a week for 6-8 weeks. She will follow up in the clinic in two months' time, unless otherwise indicated.[id number] NoteCONSULTATION CONSULTATION DATE: 06/25/2022 HISTORY OF PRESENT ILLNESS: This is a 71-year-old female who returns to the clinic following neurosurgical evaluation with Dr. Geri Vergara at [facility] in [place]. She was last seen in the office on 05/07/2022 and, at that time, she received a left gluteal trigger point injection. The patient states it gave her 90% relief for two weeks and she was very pleased with that. She did bring a disc in today for review of her lumbar MRI. She does have significant pathology to her lower lumbar, particularly L5-S1 and L4-L5. It is at the recommendation of Dr. Vergara that prior to any surgery he did recommend trialing a lumbar epidural steroid injection. Patient is very open to this. Today, her pain is 5/10 and she describes it as an ache and a pressure. It is increased by prolonged standing, walking, lifting and housework. She scanlon use ice intermittent, which does help decrease the pain. She does have radicular pain down her left buttock and left leg. She does have some intermittent weakness but denies any falls or injuries. Medications include Vansant 5/325 daily p.r.n., which she does use sparingly, Mobic 15 mg daily, Tylenol and trazodone. Patient's REVIEW OF SYSTEMS / PAST MEDICAL HISTORY / ALLERGIES and IMAGES have been reviewed and noted on the chart. PHYSICAL EXAM: VITAL SIGNS: Blood pressure 151/76, heart rate is 84. Temperature is 96.8. She is 5'1 , weighs 78 kg. GENERAL IMPRESSION: Pleasant, appropriate, in no acute distress. FOCUSED EXAM - BACK: Range of motion is functional in lateral rotation and flexion/extension. Paravertebral muscles are non-spasmodic. Mild spinal axial pain noted to direct compression along the lower lumbar facets of L2, L3 and L4, L5. Dean's point mildly tender with pain radiating bilaterally. FABERs is negative as is compression test. MUSCULOSKELETAL: Motor is intact, 5/5 bilaterally. Patient walks unassisted with a steady gait. Muscle tone adequate. Left anterior tibialis with mild decreased strength. Extensors are intact. NEUROLOGICAL: Patchy hypoesthesia noted along the L4-L5 distribution to the left lower extremity that does extend below the knee. +1 bilateral patellar and Achilles reflexes. DIAGNOSIS: Lumbar radiculitis, lumbar degenerative disc disease and lumbar spondylosis. PLAN: We will move forward with a lumbar epidural steroid injection. I did discuss with the patient the benefits of using an inversion table and she is to do her own research on it. We will refill her Mobic 50 mg daily and maintain her on her Vansant 5/325 p.r.n. Patient agrees with the procedure and will be followed up in the clinic thereafter.[facility] [id number] Evaluation + Plan noteExtracted from: Title:Spine Follow up Author:Lj Henning PA-C Date:06/16/22 Impression and Plan Patient is a 71-year-old female with a past medical history significant for lumbar stenosis and lumbar neuritis. We reviewed the MRI scan. We discussed different options. At this time she states that surgery would be her absolute last option I am in agreement with this She has previously seen Dr. Tian. She has had a few treatments with him but none appear to be an epidural steroid injection. I would recommend her to once again see him/his services and discuss her options She really wants to try and avoid any sort of surgery. She will follow-up with spine as needed. [facility]12-15-2022 NoteCONSULTATION PROCEDURE DATE: 05/07/2022 PREOPERATIVE DIAGNOSIS: Left gluteal spasm. POSTOPERATIVE DIAGNOSIS: Left gluteal spasm. PROCEDURE: Left gluteal trigger point injection. Subsequent to obtaining informed consent, the patient was placed in the upright standing forward flexion position. Alcohol prep was used to sterilize the site. A 25 gauge needle with 0.125% Marcaine and 40 mg of Kenalog was placed to rest inside the trigger zone. Negative heme. Medication was injected in a slow, fan-like pattern. Patient tolerated the procedure well. She will be followed up in the office.[facility] [id number] NoteCONSULTATION CONSULTATION DATE: 05/07/2022 HISTORY OF PRESENT ILLNESS: This is a 71-year-old female who reports to the clinic for a one month follow up for left buttock and lower back pain. She is also here for a lumbar CT review. She was last seen on 04/22/2022 and the imaging was reviewed at that time. She has had successful #1 and #2 left SI joint injections with 100% relief but for 2-4 hours only. Historically, she has had lumbar RFAs of L2, L3 and L4, L5 with good relief. She is having increasing spinal axial pain and left groin pain as well. Activities such as standing, walking, lying, pushing, pulling and lifting aggravate her pain. She does use ice which decreases her pain. Current medications include Mobic 15 mg daily, Vitamin D and Extra Strength Tylenol twice a day. Her PCP has her on 25 mg of trazodone for sleep. She has been placed on tramadol in the past with some relief, but opted not to continue that medication for her pain at her last appointment. Today, she is willing to entertain pain medicine idea, as he pain is chronically between [address] does show a broad based disc herniation between L2, L3 and L3, L4. She has got an anterior listhesis between L4 and L5 with diffuse disc bulging as well. No evidence of central canal or right foraminal stenosis. She does have moderate narrowing of the left neural foramen at L4-5. There is disc collapse with end plate sclerosis between L5 and S1. Unfortunately, her insurance does not allow for SI RFA. Patient's REVIEW OF SYSTEMS / PAST MEDICAL HISTORY / ALLERGIES and IMAGES have been reviewed and noted in the chart. PHYSICAL EXAM: VITAL SIGNS: Blood pressure is 133/75. Heart rate is 80. Temperature is 96.9. She is 5'1 , weighs 172.6 pounds. GENERAL IMPRESSION: Appropriate, uncomfortable sitting in the chair, using a quad cane to ambulate. BACK EXAM: Facet compression along posterior elements of the lumbar spine between L2 and S1 reproduces patient's spinal axial pain. Paravertebral muscles are taut but non-spasmodic. Dean's point is tender bilaterally, specifically to the left, with a positive jump response. FABERs, compression and thigh thrust tests are positive with referral pain to the left groin. Compression over left gluteal muscle reproduces a positive jump response with trigger point identified. MUSCULOSKELETAL: Diffuse muscle atrophy noted bilateral lower extremities, particularly to bilateral quadriceps and left anterior tibialis. Extensors are intact. NEUROLOGICALLY: Patient is cognitively intact. Bilateral patella and Achilles reflexes are +1. DIAGNOSIS: Left sacroiliitis, lumbar degenerative disc disease and lumbar spondylosis, left gluteal spasm. PLAN: Patient will receive a left gluteal trigger point injection in the clinic today, which she does consent to. We will start her on Vansant 5/325 once or twice daily p.r.n. for pain. We are sending a referral to Neurosurgery to Dr. Anjum Vergara in [facility]. Patient agrees with this plan of care, will be followed up here in two months' time, unless otherwise indicated.[facility] [id number] NoteCONSULTATION CONSULTATION DATE: 04/22/2022 This is a 71-year-old female returning to the clinic status post left SI joint infections completed on . This afforded her 100% relief for 12 hours. Today she complains of pain in that area. It is 2 out of 10. With increased activity, it will increase to 5 out of 10. Her primary area of pain today is her left knee. She has had bilateral total knee replacement. Historically she has responded well to left knee genicular blocks. She states her left knee pain is a different kind of pain today and has resulted in total leg weakness. She states it starts with her hip and goes downward. She denies any recent falls, but states she has had a couple near misses. She does not use an assistive device. Medications include Mobic 15 mg q. day, extra strength Tylenol, 2 g. q.day, Trazadone and multivitamins. REVIEW OF SYSTEMS, PAST MEDICAL HISTORY, ALLERGIES AND IMAGES: Have been reviewed and noted in the chart. PHYSICAL EXAM: VITAL SIGNS: Blood pressure 165/76, heart rate is 76, temperature is 96.6. Height is 5'1 , weighs 79 kg. GENERAL APPEARANCE: Pleasant, appropriate, no acute distress. FOCUSED EXAM: BACK: Range of motion is functional in lateral rotation and flexion/extension. The patient does transition from sitting to standing in a very guarded position. Compression of the lower aspect of the facets are tender along L3, L4 and L5 and fullness palpated as well. This is indicative of ill facet arthropathy, lumbar spondylosis. Pain does radiate down the left leg to the level of the knee along the lateral aspects. Dean's point is mildly tender on the right which is non-radiating. Simran's and compression tests are positive. MUSCULOSKELETAL: Muscle weakness noted to left hamstring and quadriceps as well as anterior tibialis. Motor is 4 out of 5 bilaterally, weaker on the left. NEUROLOGICAL: Radicular sensory is intact, negative polyneuropathy. Reflexes are +1 bilaterally. DIAGNOSIS: Lumbar radiculopathy, lumbar degenerative disk disease, lumbar spondylosis and bilateral sacroiliitis. PLAN: Will obtain lumbar and pelvis MRI without contrast. I did instruct the patient to start walking with a cane for safety reasons. We will refill her Mobic 15 mg q. day. The patient will be brought back to the clinic following the MRI and for re-evaluation and formation of plan of care. The patient is in agreement.[id number] NoteProcedure: Liver sonogram with elastography. Technique: Real-time grayscale, color-flow Doppler, and shear wave elastography (ElastPQ) of the liver. Still images were reviewed. Clinical information: Cirrhosis Comparison: 09/08/2021 Findings: Liver: Moderately increased and heterogenous echotexture. No focal acute lesion. Sagittal liver dimension: 12 cm Elastography: Mean tissue stiffness 1.36 m/s. Stiffness IQR 0.03 mm/s. Gallbladder: Small collection of adherent stones versus 2 cm lobulated gallstone. No gallbladder wall thickening or pericholecystic fluid. Negative Salomon sign. Gallbladder wall thickness: 2 mm. Biliary tree: No intrahepatic biliary dilatation. Common duct diameter: 7 mm like previous exam. Pancreas: Partially obscured by bowel gas. Grossly unremarkable. Ascites: None. IMPRESSION: 1. Metavir fibrosis score normal to mild. 2. No focal liver lesion. 3. Negative gallbladder. Negative Salomon's sign. 4. Mildly enlarged common bile duct to 7 mm cross-section. No change compared to previous exam. Liver fibrosis staging Metavir Score m/s Normal F0 0.81 -1.22 Normal - Mild F0 - F1 1.22 - 1.37 Mild - Moderate F2 - F3 1.37 - 2.00 Moderate - Severe F3 - F4 2.00 - 2.64+ Final Dictated by: Omar Magallanes MD Dictated DT/TM: 04/02/2022 2:55 pm Signed by: Omar Magallanes MD Signed (Electronic Signature): 04/02/2022 3:01 pm (If Report Is Signed, Electronically Signed in Other Vendor System)[facility]10-26-2022 NoteCONSULTATION CONSULTATION DATE: 03/18/2022 HISTORY OF PRESENT ILLNESS: This is a 71-year-old female returning to the clinic status post left SI joint injection completed on 03/03/2022. The patient states she received 90% relief for two hours. During those two hours, patient was able to stand, walk, fold laundry and cook with great decreased amount of pain. Today, she presents near baseline with pain 3/10 at rest, which increases to 7/10 with activity. Those activities that aggravate the pain are standing, walking, lying, pushing, pulling, sitting and lifting. Current medications include Mobic 15 mg daily, Tylenol p.r.n., trazodone 50 mg q.h.s. and multivitamin. She is experiencing some bilateral leg weakness, left greater than the right. During the two hours of decreased pain, she did not experience this weakness. Patient's REVIEW OF SYSTEMS / PAST MEDICAL HISTORY / ALLERGIES and IMAGES have been reviewed and they are noted on the chart. PHYSICAL EXAM: VITAL SIGNS: Blood pressure 140/76, heart rate is 70. Temperature is 97.5. She is 5'1 , weighs 79 kg. GENERAL IMPRESSION: Pleasant, appropriate, no acute distress. FOCUSED EXAM - BACK: Range of motion is functional in lateral rotation and flexion/extension. Dean's point is grossly tender to the right with pain radiating to the right hip and groin indicative of right sacroiliitis. Slight pain radiating along the lateral aspect of the right leg to mid thigh. Paravertebral muscles are non-spasmodic. MUSCULOSKELETAL: Motor is intact, 4/5 bilaterally. Slight muscle atrophy noted bilateral lower extremities. Her gait is steady. No limp noted. NEUROLOGICALLY: Patient is cognitively intact with negative polyneuropathy. Radicular sensory is intact. DIAGNOSIS: Left sacroiliitis and chronic lower back pain. PLAN: We will move forward to authorize a #2 left SI joint injection. I did encourage her to continue taking the Mobic as well as her vitamin regimen. The hopes are, depending on the outcomes, to move forward with a possible radiofrequency ablation. The patient agrees with the plan of care and would like to move forward. She will be followed up in the office post procedure.[facility] [id number] NoteCONSULTATION CONSULTATION DATE: 02/19/2022 HISTORY OF PRESENT ILLNESS: This is a pleasant and active 71-year-old female returning to the clinic for a three month follow up for her chronic lower back pain. The patient had lumbar radiofrequency ablations successfully in July of 2020. The patient continues to feel significant relief. Today, she is complaining of left buttock and hip pain and radiating pain that goes down the lateral aspect of her left leg to mid thigh. She denies any new vasomotor weakness; however, the radiating pain makes her feel weak. She does not use an assistive device to ambulate. She denies any new falls. Activities such as prolonged standing, walking, lying on her left side and stairs aggravate her pain. She does use ice and Voltaren gel which decreases her pain. Medications include Tylenol p.r.n., melatonin 10 mg q.h.s., multivitamin regimen and Mobic 15 mg daily. Patient's REVIEW OF SYSTEMS / PAST MEDICAL HISTORY / ALLERGIES and IMAGES have been reviewed and they are noted on the chart. PHYSICAL EXAM: VITAL SIGNS: Blood pressure is 123/77. Heart rate is 77. Temperature is 97.9. She is 5'1, weighs 77.6 kg. GENERAL IMPRESSION: Pleasant, appropriate, no acute distress. FOCUSED EXAM - BACK: Range of motion is functional in lateral rotation and flexion/extension. Paravertebral muscles are non-spasmodic. Dean's point is tender to the left with positive jump response compression. Pain does radiate to the left hip and to the left groin and along the lateral aspect of her left leg to the level of the knee. This is indicative of left sacroiliitis. MUSCULOSKELETAL: Motor is intact, 4/5 bilaterally. No vasomotor weakness is noted. Patient walks with a stable and steady gait. NEUROLOGICALLY: Patchy hypoesthesia noted along L5 dermatome to the left to the level above the knee. Radicular sensory is intact. DIAGNOSIS: Left sacroiliitis, lumbar degenerative disc disease, lumbar spondylosis. PLAN: We will move forward with a left SI joint injection which the patient does agree to. I educated the patient on heat and a menthol heat rub. She is compliant with her vitamins at this time. Patient agrees with the plan, will be followed up in the office post procedure.[facility] [id number] Note CONSULTATION CONSULTATION DATE: 11/19/2021 HISTORY OF PRESENT ILLNESS: This is a pleasant and active, 71-year-old female returning to the clinic status post left genicular RFA completed on 10/14/2021. This has thus far afforded her 60% relief. She had her initial left knee genicular RFA in March 2021 that afforded her 70% relief. She is pleased with her relief, but is hoping that she will gain further improvement at the weeks go on. She initially was sore for multiple days following the procedure, but has since noticed improvement. Current medications include diclofenac 50 mg b.i.d. The patient did cut her diclofenac frequency to once a day due to climbing blood pressure issues. She denies any vasomotor weakness. Patient's REVIEW OF SYSTEMS / PAST MEDICAL HISTORY / ALLERGIES and IMAGES have been reviewed and they are noted on the chart. PHYSICAL EXAM: VITAL SIGNS: Blood pressure 141/82, heart rate is 82. Temperature is 97.1. She is 5'1 and weighs 78.4 kg. GENERAL APPEARANCE: Pleasant, appropriate, no acute distress. FOCUSED EXAM - MUSCULOSKELETAL: Motor is intact, 4/5 bilaterally with decent muscle tone. Left knee with full range of motion in flexion/extension. No reproducible pain to palpation. NEUROLOGICAL: Radicular sensory is intact. Negative polyneuropathy. Patient is cognitively intact. IMPRESSION: Left knee pain and status post left total knee replacement. PLAN: Diclofenac will be discontinued and will be changed to Mobic 15 mg daily. I did encourage her to continue using her Icy Hot heat rub to her knee, but I did encourage her to mix it with a nickel size dose of Voltaren gel topical. She is to continue with her multivitamins as well. She will be seen in the clinic in three months' time unless otherwise indicated. Patient agrees with the plan of care. [facility] Signed and Approved by: ANDREW CALLEJAS . 11/20/2021 13:37:00[facility]05-19-2022 NoteCONSULTATION CONSULTATION DATE: 10/09/2021 This 70-year-old female returns to the clinic status post #2 left genicular nerve block completed on 05/13/2022 that afforded her 70% precent relief for 2-1/2 months. The patient is anticipating moving forward with radiofrequency ablation of that left genicular nerve. Today the patient rates her pain 8 out of 10 and describes it as achy with occasional sharp shooting pain. She will occasionally use ice which decreases her pain. Physical activity and changes in the weather aggravate her pain. She does take Diclofenac 15 mg b.i.d. as well as calcium, omega 3 and a multivitamin. She denies any new radicular pain or vasomotor changes. REVIEW OF SYSTEMS, PAST MEDICAL HISTORY, ALLERGIES AND IMAGES: Have been reviewed and noted in the chart. PHYSICAL EXAM: VITAL SIGNS: Blood pressure 181/86, heart rate is 72, temperature is 97.7. Height is 155 cm, weighs 75.2 kg. GENERAL APPEARANCE: Pleasant and appropriate. No acute distress. FOCUSED EXAM: MUSCULOSKELETAL: Motor is intact, 4 out of 5 bilaterally. Slight weakness left over right. Range of motion to her left knee is fully intact. Negative crepitus or effusion. NEUROLOGICAL: Negative polyneuropathy or hypesthesia. Achilles tendon reflex bilaterally is +1. DIAGNOSIS: Left knee pain, left knee osteoarthritis. PLAN: We will get authorization to move forward with the radiofrequency ablation of the left genicular nerve. She is to continue with her diclofenac but recommended to take with Pepto Bismol. Nutrition was discussed and Boost Supplements recommended. The patient agrees with the plan of care and would like to proceed. She will be followed up in the office post procedure. [facility] Signed and Approved by: ANDREW CALLEJAS . 10/13/2021 14:58:00[facility]03-15-2022 History of Present illness Narrative* Delores Wilson RN - 08/05/2021 4:44 PM EDT Pt ambulated to bathroom and back to chair. Pt tolerated ambulation well and able to urinate without difficulty. * Delores Wilson RN - 08/05/2021 4:40 PM EDT Pt verbalized readiness to go home. Discharge instructions given to pt and sister. Verbalized understanding and all questions answered at this time. Discharge Criteria Inpatients must meet Criteria 1 through 7. All other patients are either YES or N/A. If a NO is chosen then Anesthesia or Surgeon must be notified. 1. Minimum 30 minutes after last dose of sedative medication, minimum 120 minutes after last dose of reversal agent. Yes 2. Systolic BP stable within 20 mmHg for 30 minutes & systolic BP between 90 & 180 or within 10 mmHg of baseline. Yes 3. Pulse between 60 and 100 or within 10 bpm of baseline. Yes 4. Spontaneous respiratory rate >/= 10 per minute. Yes 5. SaO2 >/= 95 or >/= baseline. Yes 6. Able to cough and swallow or return to baseline function. Yes 7. Alert and oriented or return to baseline mental status. Yes 8. Demonstrates controlled, coordinated movements, ambulates with steady gait, or return to baseline activity function. Yes 9. Minimal or no pain or nausea, or at a level tolerable and acceptable to patient. Yes 10. Takes and retains oral fluids as allowed. Yes 11. Procedural / perioperative site stable. Minimal or no bleeding. Yes 12. If GI endoscopy procedure, minimal or no abdominal distention or passing flatus. N/A 13. Written discharge instructions and emergency telephone number provided. Yes 14. Accompanied by a responsible adult. Yes documented in this HelpHub Phone: 1(749) 147-636103-15-2022 Hospital Discharge instructions* Instructions* Delores Wilson RN - 08/05/2021 SACRAL NERVE STIMULATOR IMPLANT INSTRUCTIONS 1. Do not drive or operate hazardous machinery for 24 hours. 2. Do not make important personal or business decisions for 24 hours. 3. Do not drink alcoholic beverages for 24 hours. 4. Do not smoke tobacco products for 24 hours. 5. Eat light foods (Jell-O, soups, etc....) and drink plenty of fluids (water, Sprite, etc...) up to 8 glasses per day, as you can tolerate. 6. If your bandages become soaked with bright red blood, place another dressing pad over your bandages. (DO NOT remove original bandage.) Call your surgeon for further instructions. A small amount ofbright red blood is to be expected. 7. Limit your activities for 24 hours. Do not engage in heavy work until your surgeon gives you permission. 8. Report the following signs or any questions regarding your physical condition to your surgeon immediately: Excessive swelling of, or around the wound area. Redness. Temperature of 100 degrees (F) or above. Excessive pain. 9. Call your surgeon for any questions regarding your surgery. 10. Call for an appointment to see your surgeon in 2 weeks. 11. No swimming or use of hot tubs/saunas, no sitting in bath tub for 4 weeks. (You may shower the next day.) 12. Call Dr. Alvarenga if you are unable to void or can void only small amounts of urine. Call Dr. Alvarenga for any questions [phone] documented in this HelpHub Phone: 1(738) 476-605103-02-2022 History of Present illness Narrative* Sayda Sepulveda RN - 07/23/2021 9:00 AM EST [facility] Preadmission Testing Name: Massimo Brown Lavonne : 1950 Patient (home) Procedure INTERSTIM REPLACEMENT Date of Procedure: 08/05/21 Surgeon: Sandra Alvarenga MD Ht: 5' 1 (154.9 cm) Wt: 163 lb 8 oz (74.2 kg) Wt method: Actual Allergies: Allergies Allergen Reactions Pcn [Penicillins] Swelling Leucine Morphine Rash Nickel Rash Sulfites SNEEZING, RUNNY NOSE Peanut allergy: No Vitals: 07/23/21 0904 BP: (!) 151/73 Pulse: 77 Resp: 20 Temp: 97.1 F (36.2 C) SpO2: 99% No LMP recorded (lmp unknown). Patient has had a hysterectomy. Do you take blood thinners? [x] Yes [] No Instructed to stop blood thinners prior to procedure? [x] Yes [] No [] N/A Do you have sleep apnea? [] Yes [x] No Instructed to bring CPAP machine? [] Yes [] No [x] N/A Do you have acid reflux ? [x] Yes [] No HEARTBURN Do you have hiatal hernia? [] Yes [x] No Do you ever experience motion sickness? [x] Yes [] No Have you had a respiratory infection or sore throat in last 4 weeks before surgery? [] Yes [x] No Do you have poorly controlled asthma or COPD? [] Yes [x] No Do you have a history of angina in the last month or symptomatic arrhythmia? [] Yes [x] No Do you have significant central nervous system disease? [] Yes [x] No Have you had an EKG, labs, or chest xray in last 12 months? If yes provide copies to anesthesia [x] Yes [] No [x] Lab [] EKG [] CXR Have you had a stress test? [x] Yes [] No When/where: [facility] Was it normal? [x] Yes [] No Do you or your family have a history of Malignant Hyperthermia? [] Yes [x] No Patient instructed on: [x] NPO Status [x] Meds to Take Day of Surgery [x] Ride Home [x]No Jewelry/Contact Lenses/Dentures day of surgery [x] Chlorhexidene PAT Call/Visit Questions Person Interviewed: MASSIMO Relationship to Patient: Patient Surgery Time Verified: Yes Surgery Location Verified: Yes NPO Status Reinforced: Yes Ride and Caregiver Arranged: Yes Ride Caregiver Provider: [place] [facility] Bottle/Wipes provided with instructions for use: Yes Pre-AdmissionTesting Checklist Communication Needs: None Patient instructed on the pre-operative, intra-operative, and post-operative process? Yes Medication instructions reviewed with patient? Yes Pre operative instruction sheet reviewed and given to patient in PAT? Yes * Sayda Sepulveda RN - 07/23/2021 9:00 AM EST Patient instructed on the pre-operative, intra-operative, and post-operative process. Patient instructed on NPO status. Medication instructions and pre operative instruction sheet reviewed with the patient. CHG skin prep instructions reviewed with patient. documented in this encounter[facility] HospitalBuildDirect Phone: evaluation + Plan note No data available for this section [facility] + Plan note Future Appointments Appointment Date:06/16/2022 01:30:00 PM Scheduled Provider:Janie Henning PA-C Location:[facility] Appointment Type:Spine - Follow Up ([facility]) [facility] note* Diagnosis Preop testing Preoperative examination, unspecified documented in this encounter [employer] Phone: evaluation note* Diagnosis OAB (overactive bladder)- Primary Hypertonicity of bladder Mixed incontinence Mixed incontinence urge and stress (male)(female) documented in this encounter [employer] Phone: evaluation note* Diagnosis Urinary urgency Urgency of urination documented in this encounter [facility] [employer] Phone: evalvwzstn note* Diagnosis Urinary urgency Urgency of urination Frequency of micturition Urinary frequency documented in this encounter [facility] [employer] Phone: evaluation note* Diagnosis Spinal stenosis of lumbar region, unspecified whether neurogenic claudication present- Primary [facility] Diagnosis Spinal stenosis of lumbar region, unspecified whether neurogenic claudication present [facility]* Diagnosis Myelopathy (HCC)- Primary Unspecified disease of spinal cord [facility]* Diagnosis Myelopathy (HCC) Unspecified disease of spinal cord [facility]* Diagnosis Cervical spondylosis with myelopathy- Primary [facility]* Diagnosis Cervical spondylosis with myelopathy- Primary [facility]* Diagnosis Cervical spondylosis with myelopathy- Primary [facility]* Diagnosis Cervical spondylosis with myelopathy- Primary [facility]* Diagnosis Cervical spondylosis with myelopathy- Primary Cervical spondylosis with myelopathy- Primary [facility]* Diagnosis Cervical spondylosis with myelopathy- Primary Cervical spondylosis with myelopathy- Primary Cervical spondylosis with myelopathy [facility]* Diagnosis Cervical spondylosis with myelopathy- Primary Preop testing- Primary Preoperative examination, unspecified 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) Other specified disorders of central nervous system Body mass index (BMI) 30.0-30.9, adult Cervical spondylosis with myelopathy [facility]* Diagnosis Cervical spondylosis with myelopathy- Primary Cervical spondylosis with myelopathy- Primary Cervical spondylosis with myelopathy [facility]* Diagnosis Cervical spondylosis with myelopathy- Primary Preop testing- Primary Preoperative examination, unspecified 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) Other specified disorders of central nervous system Body mass index (BMI) 30.0-30.9, adult Abnormal electrocardiogram (ECG) (EKG) Cervical spondylosis with myelopathy [facility]* Diagnosis Cervical spondylosis with myelopathy- Primary Cervical spondylosis with myelopathy Cervical spondylosis with myelopathy [facility]* Diagnosis Hx of cervical spine surgery- Primary [facility]* Diagnosis Cervical spondylosis with myelopathy- Primary Cervical spondylosis with myelopathy [facility]* Diagnosis Cervical spondylosis with myelopathy [facility] No data available for this section [facility] No data available for this section [facility] Narrative* Auth/Cert Specialty Diagnoses / Procedures Referred By Rebekah lara Referred To Contact Diagnoses OAB (overactive bladder) OAB MIXED CONTINENCE Procedures MO OPEN IMPLANTATION JENNI SACRAL NERVE SACRAL NERVE STIMULATOR IMPLANT--REMOVE INTERSTIM AND LEADS PLACEMENT OF NEW INTERSTIM Sandra Alvarenga MD [address], [address] [place] [address] [facility] [id number] [place] [address] Referral ID Status Reason Start Date Expiration Date Visits Re quested Visits Authorized [id number] 1 1 [employer] Phone: Assessments Diagnosis Mixed incontinence Mixed incontinence urge and stress (male)(female) OAB (overactive bladder) Hypertonicity of bladder Frequency of urination Urinary frequency Urgency of urination Diagnosis Mixed incontinence Mixed incontinence urge and stress (male)(female) Diagnosis Renal stones Calculus of kidney Advance Directives No Advanced Directives Records FoundDocuments on File Type Date Recorded 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 Advance Directives and Living Will Power of Field Seismologist Latest Code Status on File Code Status Date Activated Date Inactivated Comments Full Code 04/07/2016 12:51 PM 04/07/2016 6:11 PM Full Code 03/24/2016 7:53 AM 03/24/2016 2:13 PM Documents on File Type Date Recorded 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 ACP-Advance Directive ACP-Power of Field Seismologist Latest Code Status on File Code Status Date Activated Date Inactivated Comments Full Code 04/07/2016 12:51 PM 04/07/2016 6:11 PM Full Code 03/24/2016 7:53 AM 03/24/2016 2:13 PM Latest Code Status on File Code Status Date Activated Date Inactivated Comments Full Code 08/05/2021 12:10 PM Full Code 04/07/2016 12:51 PM 04/07/2016 6:11 PM Documents on File Type Date Recorded 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 This is the code status chosen by the patient/surrogate. Latest Code Status on File Code Status Date Activated Date Inactivated Comments Full Code 03/31/2023 3:39 PM 04/03/2023 3:35 PM Question Answer Comments Documentation of decision process for this code status: Discussed with patient or surrogate. This is the code status chosen by the patient/surrogate. Latest Code Status on File Code Status Date Activated Date Inactivated Comments Full Code 03/31/2023 3:39 PM 04/03/2023 3:35 PM Question Answer Comments Documentation of decision process for this code status: Discussed with patient or surrogate. This is the code status chosen by the patient/surrogate. Reason for Referral Specialty Diagnoses / Procedures Referred By Contac t Referred To Contact Cardiology Diagnoses Preop testing Procedures EKG 12 Lead Prashant Hernandez, CHAINSTITCH BINDER - SUPERVISOR PAYROLL [address] [facility] [address] [address] Referral ID Status Reason Start Date Expiration Date Visits Re quested Visits Authorized [id number] Open 07/22/2021 07/22/2022 1 1 Specialty Diagnoses / Procedures Referred By Contac t Referred To Contact Radiology Diagnoses Spinal stenosis of lumbar region, unspecified whether neurogenic claudication present Procedures DOWNLOAD POWERSHARE IMAGES TO Geri Garay MD [address] [place] [address] [facility] [address] [place] [address] [place] [address] Referral ID Status Reason Start Date Expiration Date V isits Requested Visits Authorized [id number] Authorized 09/23/2022 09/23/2023 1 1 Specialty Diagnoses / Procedures Referred By Contac t Referred To Contact Radiology Diagnoses Myelopathy (HCC) Procedures MR NEURO IMAGE IMPORT(WHIT) DOWNLOAD POWERSHARE IMAGES TO Geri Garay MD [address] [place], [place] [id number] [facility] [address] [place] [address] [place] [address] Referral ID Status Reason Start Date Expiration Date Visits Re quested Visits Authorized [id number] Closed 10/26/2022 10/26/2023 1 1 Specialty Diagnoses / Procedures Referred By Contac t Referred To Contact Radiology Diagnoses Cervical spondylosis with myelopathy Procedures CT C-SPINE W/O CONTRAST Geri Vergara MD [address] [place] [address] [facility] [address] [facility]AN Referral ID Status Reason Start Date Expiration Date V isits Requested Visits Authorized [id number] Authorized 02/15/2023 02/15/2024 1 1 Referral ID Status Reason Start Date Expiration Date Visits Re quested Visits Authorized [id number] Closed 02/15/2023 02/15/2024 1 1 Specialty Diagnoses / Procedures Referred By Contac t Referred To Contact Radiology Diagnoses Cervical spondylosis with myelopathy Procedures XR C-SPINE FLEX/EXT ONLY 2 VIEWS Geri Vergara MD [address] [place], [place] [id number] [facility] [address] [place] [address] [place] [address] Referral ID Status Reason Start Date Expiration Date Visits Re quested Visits Authorized [id number] Closed 06/16/2023 06/15/2024 1 1 Summary Purpose Family History No Family History Records FoundNo Family History Records FoundNo Family History Records FoundNo Family History Records FoundNo Family History Records FoundNo Family History Records Found Additional Source Comments Care Teams (unrecognized sec tion and content) Station Installation Supervisor Relationship Specialty Start Date End Date Cooper Eller MD [address] [place] [address], [facility] [place] [address] PCP - General Internal Medicine 07/20/14 Station Installation Supervisor Relationship Specialty Start Date End Date Cooper Eller MD [address] [place] [address], [facility] [place] [address] PCP - General Internal Medicine 07/20/14 Station Installation Supervisor Relationship Specialty Start Date End Date Cooper Eller MD [address] [place] [address], [facility] [place] [address] PCP - General Internal Medicine 07/20/14 Station Installation Supervisor Relationship Specialty Start Date End Date Geri Vergara MD [address] [place] [address] Physician Orthopaedic Surgery 09/26/22 Station Installation Supervisor Relationship Specialty Start Date End Date Geri Vergara MD [address] [place] [address] Physician Orthopaedic Surgery 09/26/22 Station Installation Supervisor Relationship Specialty Start Date End Date Geri Vergara MD [address] [place] [address]604 Physician Orthopaedic Surgery 09/26/22 Station Installation Supervisor Relationship Specialty Start Date End Date Geri Vergara MD [address] [place] [address]98 Physician Orthopaedic Surgery 09/26/22 Station Installation Supervisor Relationship Specialty Start Date End Date Geri Vergara MD [address] [place] [address] Physician Orthopaedic Surgery 09/26/22 Station Installation Supervisor Relationship Specialty Start Date End Date Geri Vergara MD [address] [place] [address]37 Physician Orthopaedic Surgery 09/26/22 Station Installation Supervisor Relationship Specialty Start Date End Date Geri Vergara MD [address] [place] [address] Physician Orthopaedic Surgery 09/26/22 Station Installation Supervisor Relationship Specialty Start Date End Date Geri Vergara MD [address] [place] [address] 66714 Physician Orthopaedic Surgery 09/26/22 Station Installation Supervisor Relationship Specialty Start Date End Date Geri Vergara MD [address] [place] [address] 75886 Physician Orthopaedic Surgery 09/26/22 Station Installation Supervisor Relationship Specialty Start Date End Date Geri Vergara MD [address] [place] [address] 416[address] Physician Orthopaedic Surgery 09/26/22 Station Installation Supervisor Relationship Specialty Start Date End Date Geri Vergara MD [address] [place] [address] Physician Orthopaedic Surgery 09/26/22 Station Installation Supervisor Relationship Specialty Start Date End Date Geri Vergara MD [address] [place] [address] Physician Orthopaedic Surgery 09/26/22 Station Installation Supervisor Relationship Specialty Start Date End Date Geri Vergara MD [address] [place] [address]20 Physician Orthopaedic Surgery 09/26/22 Station Installation Supervisor Relationship Specialty Start Date End Date Geri Vergara MD [address] [place] [address] 57674 Physician Orthopaedic Surgery 09/26/22 Dee Mireles, CHAINSTITCH BINDER-SUPERVISOR [employer] [address] [place] [address] FABRICATION TECHNICIAN Anesthesiology 03/27/23 Station Installation Supervisor Relationship Specialty Start Date End Date Geri Vergara MD [address] [place] [address] 46966 Physician Orthopaedic Surgery 09/26/22 Dee Mireles APRN-SUPERVISOR [employer] [address] [place] [address] [place] [address] FABRICATION TECHNICIAN Anesthesiology 03/27/23 Station Installation Supervisor Relationship Specialty Start Date End Date Geri Vergara MD [address] [place] [address]758 Physician Orthopaedic Surgery 09/26/22 Dee Mireles APRN-SUPERVISOR [employer] [address] [place] [address] [place] [address] FABRICATION TECHNICIAN Anesthesiology 03/27/23 Station Installation Supervisor Relationship Specialty Start Date End Date Geri Vergara MD [address] [place] [address] Physician Orthopaedic Surgery 09/26/22 Dee Mireles APRN-SUPERVISOR [employer] [address] [place] [address] [place] [address] FABRICATION TECHNICIAN Anesthesiology 03/27/23 Station Installation Supervisor Relationship Specialty Start Date End Date Geri Vergara MD [address] [place] [address] Physician Orthopaedic Surgery 09/26/22 Dee Mireles APRN-SUPERVISOR [employer] [address] [place] [address] [place] [address] FABRICATION TECHNICIAN Anesthesiology 03/27/23 Station Installation Supervisor Relationship Specialty Start Date End Date Geri Vergara MD [address] [place] [address] Physician Orthopaedic Surgery 09/26/22 Dee Mireles APRN-CNP [address] [place] [address] FABRICATION TECHNICIAN Anesthesiology 03/27/23 Scheduled Active and Recently Administ ered Medications (unrecognized section and content) Medication Order 08/03/2021 08/04/2021 08/05/2021 acetaminophen (TYLENOL) tablet 650 mg (COMPLETED) 650 mg, Oral, ONCE, On e 08/05/21 at 1230, For 1 dose, Maximum dose of acetaminophen is 4000 mg from all sources in 24 hours., Pre-op (day of surgery) 1259 (Given - Provid er: Aditi Felton RN) clindamycin (CLEOCIN) 900 mg in dextrose 5 % 50 mL IVPB (COMPLETED) 900 mg, IntraVENous, ONCE, 1 dose, On e 08/05/21 at 1300 1427 (New Bag - Prov ider: Zenon Baltazar RN)1447 (Stopped - Provider: Zenon Baltazar RN) famotidine (PEPCID) injection 20 mg (COMPLETED) 20 mg, IntraVENous, ONCE, On 08/05/21 at 1230, For 1 dose, Administer over 2 minutes., Pre-op (day of surgery) 1259 (Given - Provid er: Aditi Felton RN) sodium chloride flush 0.9 % injection 5-40 mL 5-40 mL, IntraVENous, EVERY 12 HOURS SCHEDULED (2 times per day), First dose on Wed08/05/21 at 2100, For Line Patency: Peripheral IV = 5 mL; Midline or Central Line = 10 mL/lumen. If following IV push medication, administer flush at same rate as the IV push. Flush volume is determined by type of infusion therapy being given. For non-viscous solutions use: Peripheral IV = 5 mL Midline or Central Line = 10 mL/lumen For viscous solutions (i.e. blood components, parenteral nutrition, contrast media, or after obtaining blood sample) use: Peripheral IV = 10 mL Midline or Central Line = 20 mL/lumen, Pre-op (day of surgery) 2100 (Due) Continuous Medication Order 08/03/2021 08/04/2021 08/05/2021 lactated ringers infusion IntraVENous, at 100 mL/hr, CONTINUOUS, Starting on e 08/05/21 at 1230, Pre-op (day of surgery) 1230 (Due) lactated ringers infusion IntraVENous, at 125 mL/hr, CONTINUOUS, Starting on Wed08/05/21 at 1230, Pre-op (day of surgery) 1254 (New Bag - Prov ider: Aditi Felton RN)1429 (NoRateChange - Provider: WM Olea CRNA)1548 (Paused - Provider: WM Nash CRNA - Comment: Switch to gravity)1549 (Restarted - Provider: WM Nash CRNA) lactated ringers infusion IntraVENous, at 125 mL/hr, CONTINUOUS, Starting on Wed08/05/21 at 1515, PACU only 1515 (Due) PRN Medication Order 08/03/2021 08/04/2021 08/05/2021 0.9 % sodium chloride infusion 25 mL, IntraVENous, at 100 mL/hr, PRN, If patient receiving piggyback infusions without ordered maintenance IV fluids or with frequent/long duration piggyback infusions, Starting on Wed08/05/21 at 1204, Administer at the same rate as the piggyback being infused., Pre-op (day of surgery) fentaNYL (SUBLIMAZE) injection 25 mcg 25 mcg, IntraVENous, EVERY 5 MIN PRN, Pain Moderate (4-6), Starting on e 08/05/21 at 1451, For 4 doses, Phase I - Initial therapy for moderate pain., PACU only fentaNYL (SUBLIMAZE) injection 50 mcg 50 mcg, IntraVENous, EVERY 5 MIN PRN, Pain Severe (7-10), Starting on Wed08/05/21 at 1451, For 4 doses, Phase I - Initial therapy for severe pain., PACU only HYDROcodone-acetaminophen (NORCO) 5-325 MG per tablet 1 tablet 1 tablet, Oral, ONCE PRN, Pain Moderate (4-6), Pain Severe (7-10), Starting on Wed08/05/21 at 1451, For 1 dose, Maximum dose of acetaminophen is 4000 mg from all sources in 24 hours., PACU only lidocaine-EPINEPHrine 2 percent-1:[id number] injection (CANCELED) PRN, Starting on Wed08/05/21 at 1449, Intra-op 1449 (Given - Provid er: Sandra Alvarenga MD - Comment: injection to implant site) ondansetron (ZOFRAN) injection 4 mg 4 mg, IntraVENous, ONCE PRN, Nausea, Starting on Wed08/05/21 at 1451, For 1 dose, Initial antiemetic therapy., PACU only prochlorperazine (COMPAZINE) injection 5 mg 5 mg, IntraVENous, ONCE PRN, Nausea, Starting on Wed08/05/21 at 1451, For 1 dose, Secondary antiemetic therapy., PACU only sodium chloride flush 0.9 % injection 5-40 mL 5-40 mL, IntraVENous, PRN, Line Care, Starting on Wed08/05/21 at 1204, For Line Patency: Peripheral IV = 5 mL; Midline or Central Line = 10 mL/lumen. If following IV push medication, administer flush at same rate as the IV push. Flush volume is determined by type of infusion therapy being given. For non-viscous solutions use: Peripheral IV = 5 mL Midline or Central Line = 10 mL/lumen For viscous solutions (i.e. blood components, parenteral nutrition, contrast media, or after obtaining blood sample) use: Peripheral IV = 10 mL Midline or Central Line = 20 mL/lumen, Pre-op (day of surgery) INFORMATION SOURCE (unrecogn ized section and content) DATE CREATED AUTHOR 01/22/2022 [facility] DATE CREATED AUTHOR AUTHOR'S ORGANIZ ATION 10/02/2022 [facility] DATE CREATED AUTHOR AUTHOR'S ORGANIZ ATION 11/11/2022 [facility] DATE CREATED AUTHOR AUTHOR'S ORGANIZ ATION 11/25/2022 [facility] DATE CREATED AUTHOR AUTHOR'S ORGANIZ ATION 03/26/2023 [facility] DATE CREATED AUTHOR AUTHOR'S ORGANIZ ATION 06/21/2023 [facility] Reason for Visit (unrecogniz ed section and content) Specialty Diagnoses / Procedures Referred By Contac t Referred To Contact Radiology Diagnoses Spinal stenosis of lumbar region, unspecified whether neurogenic claudication present Procedures MR NEURO IMAGE IMPORT(WHIT) DOWNLOAD POWERSHARE IMAGES TO Geri Garay MD [address] [place] [address] [facility] [address] [place] [address] [place] [address] Referral ID Status Reason Start Date Expiration Date Visits Re quested Visits Authorized [id number] Closed 09/23/2022 09/23/2023 1 1 Specialty Diagnoses / Procedures Referred By Contac t Referred To Contact Radiology Diagnoses Myelopathy (HCC) Procedures MR NEURO IMAGE IMPORT(WHIT) DOWNLOAD POWERSHARE IMAGES TO Geri Garay MD [address] [place] [address] [facility] [address] [place] [address] [place] [address] Referral ID Status Reason Start Date Expiration Date Visits Re quested Visits Authorized [id number] Closed 10/26/2022 10/26/2023 1 1 Reason Comments Neck pain Reason Comments Leg/thigh symptoms Reason Comments Monitoring/follow-up Specialty Diagnoses / Procedures Referred By Kyraac t Referred To Contact Radiology Diagnoses Cervical spondylosis with myelopathy Procedures CT C-SPINE W/O CONTRAST Geri Vergara MD [address] [place] [address] [facility] [address] [facility] Referral ID Status Reason Start Date Expiration Date Visits Re quested Visits Authorized [id number] Closed 02/15/2023 02/15/2024 1 1 Specialty Diagnoses / Procedures Referred By Contac t Referred To Contact General Surgery Diagnoses Cervical spondylosis with myelopathy Cervical spondylosis with myelopathy [M47.12] Procedures LAMINOPLASTY, CERVICAL, W/SPINAL CORD DECOMPRESS, 2/> VERTEBRAL SEGMENTS W/POST BONE RECONSTRUCT LAMINOPLASTY, POSTERIOR CERVICAL Geri Vergara MD [address] [place] [address] [facility] [address] [place] [address] Phone: [phone] Referral ID Status Reason Start Date Expiration Date Visits Re quested Visits Authorized [id number] 3 Reason Onset Date Comments Health Information 04/09/2023 Reason Comments Post Op Check Reason Onset Date Comments Health Information 05/04/2023 Reason Comments Post Op Check Specialty Diagnoses / Procedures Referred By Contac t Referred To Contact Radiology Diagnoses Cervical spondylosis with myelopathy Procedures XR C-SPINE FLEX/EXT ONLY 2 VIEWS Geri Vergara MD [address] [place] [address] [facility] [address] [place] [address] Referral ID Status Reason Start Date Expiration Date Visits Re quested Visits Authorized [id number] Closed 06/16/2023 06/15/2024 1 1 FOR RECORDS PERTAINING TO PATIENTS WHO ARE OR HAVE BEEN ENROLLED IN A CHEMICAL DEPENDENCY/SUBSTANCEABUSE PROGRAM, SOME INFORMATION MAY BE OMITTED. This clinical summary was aggregated from multiple sources. Caution should be exercised in using it in the provision of clinical care. This summary normalizes information from multiple sources, and as a consequence, information in this document may materially change the coding, format and clinical context of patient data. In addition, data may be omitted in some cases. CLINICAL DECISIONS SHOULD BE BASED ON THE PRIMARY CLINICAL RECORDS. [facility]. provides no warranty or guarantee of the accuracy or completeness of information in this document.
== END 2023-06-23 10:59 | disposition home or self-care (01) ==
LOC: RAD 11:02
PROVIDERS: PCP Internal Medicine; Visit Provider Nurse Practitioner
DX: M25.552 Pain in left hip (principal)
CPT/HCPCS: 73502

== ENCOUNTER 2023-07-02 14:47 | Outpatient (RCR) | payer MEDICARE, SELFPAY | END 2023-09-22 15:52 | disposition home or self-care (01) | LOC: PT 14:47 | PROVIDERS: PCP Internal Medicine; Visit Provider Nurse Practitioner | DX: M70.72 Other bursitis of hip, left hip (principal); M76.30 Iliotibial band syndrome, unspecified leg | CPT/HCPCS: 20561; 97010; 97110; 97112; 97140; 97163; G0283 ==

== ENCOUNTER 2023-07-13 08:05 | Day surgery (SDC) | payer MEDICARE, SELFPAY ==
--- OUTSIDE RECORDS SUMMARY | 2023-07-13 08:11 | XMS_ITS | CCD ---
Author Name Unknown Address [id number] [place] [address] Organization [facility] Care Team Providers Care Manufacturing Laborer Name Role Phone Vladimir Greco Primary Care Physician Unavail able Vladimir Greco Unavailable Unavailable Cooper Eller Primary Care Provider [phone] Vladimir Greco Primary Care Physician Unavail able Vladimir Greco Primary Care Physician Unavail able Cooper Eller Primary Care Provider Vladimir Greco Primary Care Physician Unavail able Vladimir Greco Primary Care Physician Unavail able Vladimir Greco Primary Care Physician Unavail able Rafita FOSTER, Cooper Ambriz Primary Care Provider Rafita FOSTER, Cooper Ambriz Primary Care Provider [phone] Cooper Eller MD Primary Care Provider COOPER ELLER Primary Care Unavailable PRASHANT HERNANDEZ Referring Unavailable SANDRA ALVARENGA Attending Unavailable SANDRA ALVARENGA Referring Unavailable COOPER ELLER Primary Care Unavailable COOPER ELLER Primary Care Unavailable ALEXANDRA FRYE Referring Unavailable COOPER ELLER Primary Care Unavailable ALEXANDRA FRYE Referring Unavailable COOPER ELLER Primary Care Unavailable SANDRA ALVARENGA Admitting Unavailable SANDRA ALVARENGA Attending Unavailable COOPER ELLER Primary Care Physician [phone] Unavailable Primary Care Provider UnavailDR COOPER Allen [...] SCHULZ Consulting Unavailable Geri Vergara MD Unavailable [phone] Geri Vergara Attending Unavailable Geri Vergara Admitting [...] Unavailable Janie Henning Attending Unavailable LAKISHA STAFFORD [id number] Attending Unavailable SELF, SELF Referring Unavailable LAKISHA STAFFORD [id number] Attending Unavailable COOPER ELLER Primary Care Unavailable [...] Unavailable Aline BURK-Dee SOSA Unavailable PROVIDER, UNKNOWN Attending Unavailable PROVIDER, UNKNOWN [...] THERAPY SERVICE Consult ing Unavailable PROVIDER, UNKNOWN Admitting Unavailable PROVIDER, UNKNOWN Attending Unavailable PROVIDER, UNKNOWN Admitting Unavailable PROVIDER, UNKNOWN Attending Unavailable PROVIDER, UNKNOWN Attending Unavailable PROVIDER, UNKNOWN Admitting Unavailable PROVIDER, UNKNOWN Admitting Unavailable PROVIDER, UNKNOWN Attending Unavailable PROVIDER, UNKNOWN Admitting Unavailable PROVIDER, UNKNOWN Attending Unavailable GERI VERGARA Referring Unavailable PROVIDER, UNKNOWN Admitting Unavailable GERI VERGARA Referring Unavailable PROVIDER, UNKNOWN Attending Unavailable Vladimir Jose Primary Care Physician Unava ilable Vladimir Jose Unavailable Unavailable Allergies Allergy Classification Reported Allergen(s) Allergy Type Date of Onset Reaction(s) Facility (2 sources) Morphine; Translations: [Morphine Sulfate] Drug Allergy rash [facility] (20 sources) nickel; Translations: [Nickel] Drug Allergy 1 Rash, Itching (finding) [facility] (20 sources) Penicillins; Translations: [PENICILLINS] Allergy to substance (disorder) 5 Swelling [facility] (12 sources) Sulfites/Food Preservatives Allergy to substance (disorder) [facility] (20 sources) Morphine; Translations: [Morphine Sulfate] Drug Allergy 5 Rash, Eruption of skin (disorder) [place] (20 sources) Sulfites; Translations: [sulfites] Propensity to adverse reactions to drug 5 [place], [place] (4 sources) Leucine Drug Allergy 1 [facility] (2 sources) Acetaminophen / oxyCODONE Drug Allergy 7 [facility] (7 sources) Penicillin; Translations: [penicillin] Drug Allergy Swelling (morphologic abnormality) [facility] (1 source) Acetaminophen / oxyCODONE Drug Allergy 7 [facility] (1 source) Morphine Drug Allergy 1 [facility] (1 source) Penicillin Drug Allergy 3 [facility] (1 source) Sulfites Drug allergy (disorder) 5 [facility] (1 source) Sulfur Based Preservatives Drug allergy Itching (finding) [facility] Medications Current Medications Medication Drug Class(es) [...] hours. PACU only take 2 tablets by [facility] once as needed hydrocodone-acetaminophen (NORCO) 5-325 mg [...] Start: 01-13-2022 take 1 tablet by janie th twice daily carvedilol (COREG) 6.25 MG tablet [...] Status: Ordered take 1 tablet by mouth once camille y Zyrtec 10 mg oral tablet take 1 tablet (10 mg) by oral route once daily clindamycin 150 mg oral capsule (5 [...] for moderate pain. PACU only Fish Oils (17 sources) Start: 05-19-2022 Macungie-3 Fish O il Daily, Refills(s) 0 Start [...] EVERY DAY Start Date: 05/19/22 Status: Ordered End: 05-13-2016 take 0.5 tablet by mouth once daily in the morning hydrochlorothiazide 25 mg oral tablet 05/13/2016 take 0.5 tablet by oral route once a day (in the morning) take 1 capsule by mo wih once daily hydrochlorothiazide (MICROZIDE) 12.5 MG capsule Take 12.5 mg by mouth daily. 0 Active levothyroxine sodium 0.1 mg oral tablet (20 [...] Ordered Start: 10-03-2021 take 1 tablet by janie th once daily lisinopril (PRINIVIL;ZESTRIL) 40 MG tablet [...] mouth daily 90 tablet 4 05/29/2019 Active meloxicam 15 mg oral tablet (20 sources) [...] daily RESTORE OCULAR & CO-Q10 0 Active [place] 3-6-9 Fatty Acids (TRI PLE OMEGA-3-6-9 ORAL) (20 sources) Mac[place]ie 3-6-9 Fatt y Acids (TRIPLE OMEGA-3-6-9 ORAL) Take by mouth. 0 Suspended [place]ie 3-6-9 Fatt y Acids (TRIPLE OMEGA-3-6-9 ORAL) Take by mouth. 0 Active Macungie-3 Fatty Acids (OMEGA 3 PO) (8 sources) take 1 tablet by mouth once daily Macungie-3 Fatty Acids (OMEGA 3 PO) Take 1 [...] Refills(s) 0 Start Date: 11/10/22 Status: Ordered ubidecarenone 100 mg / vitamin e 5 [...] Active Start: 07-02-2021 take 3 capsules by m outh once daily ursodiol (ACTIGALL) 300 MG capsule Indications: Primary biliary cirrhosis (HCC) Take 3 capsules by mouth daily 270 capsule 3 07/02/2021 Active Start: 01-09-2020 Actigall 300 m g oral capsule 01/09/2020 Take 4 capsules a [...] 325 mg oral tablet (1 source) Start: 08-05-2021 End: 08-05-2021 acetaminophen (TYLENOL) tablet 650 mg calcium carbonate 1250 mg / cholecalciferol 0.01 mg oral tablet (12 sources) Vitamin D End: 02-01-2018 take 1 tablet by mouth four times daily Calcium 500 + D 500 mg(1,250mg) -400 unit oral tablet 02/01/2018 take 1 tablet by oral route 4 times a day End: 02-01-2018 take 1 tablet by mouth four times daily Calcium 500 + D 500 mg(1,250mg) -400 unit oral tablet 02/01/2018 take 1 tablet by oral route 4 times a day calcium citrate 760 mg calcium /3.5 gram oral granules (2 sources) calcium citrate 760 mg calcium /3.5 gram oral granules take 1500 by oral route daily cholecalciferol 0.05 mg oral capsule (20 sources) Vitamin D take 2 capsules by mouth once daily Vitamin D3 2,000 unit oral capsule take 2 capsules by oral route daily Cholecalciferol (Vitamin D) 50 MCG (2000 UT) TABS Take by mouth. 0 Active take 1 tablet by mouth twice zulema ly vitamin D (CHOLECALCIFEROL) 1000 UNIT TABS tablet Take 1,000 Units by mouth 2 times daily 0 Active co Q10-red yeast rice 60-600 mg oral capsule (1 source) End: 02-01-2018 take 1 capsule by mouth once daily co Q10-red yeast rice 60-600 mg oral capsule 02/01/2018 take 1 capsule by oral route daily coenzyme q10 60 mg / red yeast rice 600 mg oral capsule (11 sources) End: 02-01-2018 take 1 capsule by mouth once daily co Q10-red yeast rice 60-600 mg oral capsule 02/01/2018 take 1 capsule by oral route daily docusate sodium 100 mg oral capsule (5 sources) Start: 04-02-2023 End: 06-17-2023 take 1 capsule by mouth twice daily docusate sodium (COLACE) 100 MG capsule Take 1 Capsule by mouth 2 times daily. 60 Capsule 0 04/02/2023 06/17/2023 Discontinued Esomeprazole (12 sources) Proton Pump Inhibitor End: 11-27-2014 nexium 22.3 mg 11/27/2014 one tablet in the morning esomeprazole 20 mg / naproxen 500 mg delayed release oral tablet (12 sources) Proton Pump Inhibitor, Nonsteroidal Anti-inflammatory Drug End: 05-29-2014 take 1 tablet by mouth twice daily 30 minutes before mealtime Vimovo 500-20 mg oral tablet,IR,delaye d rel,biphasic 05/29/2014 take 1 tablet by oral route 2 times per day 30 minutes before meals estrogens, conjugated (fci) 0.625 mg/ml vaginal cream (12 sources) Estrogen End: 05-13-2016 apply 0.5 g topically three times weekly Premarin 0.625 mg/gram vaginal cream 05/13/2016 apply 0.5 gram by topical route three times a wk 2 ml famotidine 10 mg/ml injection (1 source) Histamine-2 Receptor Antagonist Start: 08-05-2021 End: 08-05-2021 famotidine (PEPCID) injection 20 mg ferrous sulfate 325 mg extended release oral capsule (2 sources) End: 07-28-2017 take 1 capsule by mouth once daily iron 325 mg (65 mg iron) oral capsule, extended release 07/28/2017 take 1 capsule by oral route daily fluticasone furoate 0.0275 mg/actuat metered dose nasal spray (12 sources) Corticosteroid End: 12-12-2012 take 2 spray(s) nasal route once daily Veramyst 27.5 mcg/actuation nasal spray,suspension 12/12/2012 spray 2 sprays (55 mcg) in each nostril by intranasal route once daily wydtblaazi-[id number]-ffq-tia -115HC Oral (12 sources) End: 06-12-2013 glucosamin-chond -[id number]-[id number] Oral 06/12/2013 hydroCHLOROthiazide 25 mg / losartan potassium 100 mg oral tablet (12 sources) Thiazide Diuretic, Angiotensin 2 Receptor Walker End: 11-27-2014 take 1 tablet by mouth once daily losartan-hydroch lorothiazide 100-25 mg oral tablet 11/27/2014 take 1 tablet by oral route once daily Iron (10 sources) End: 07-28-2017 take 1 capsule by mouth once daily iron 325 mg (65 mg iron) oral capsule, extended release 07/28/2017 take 1 capsule by oral route daily krill oil 500 mg oral capsule (12 sources) End: 07-28-2017 take 1 capsule by mouth twice daily krill oil 500 mg oral capsule 07/28/2017 take 1 capsule by oral route 2 times a day Suprep Bowel Prep Kit 17.5-3.13-1.6 gram oral recon soln (20 sources) Start: 11-12-2016 End: 07-28-2017 Suprep Bowel Prep Kit 17.5-3.13-1.6 gram oral recon soln 11/12/2016 07/28/2017 take as directed Start: 09-19-2015 Suprep Bowel P rep Kit 17.5-3.13-1.6 gram oral recon soln 09/19/2015 take as directed melatonin 10 mg oral tablet (20 sources) take 1 tablet by janie th once daily melatonin 10 mg oral tablet take 1 tablet by oral route daily take 1 capsule by mouth once zulema ly Melatonin 10 MG CAPS Take 10 mg by mouth nightly 0 Active mometasone furoate 0.05 mg/actuat metered dose nasal spray (12 sources) Corticosteroid End: 11-27-2014 take 2 spray(s) nasal route once daily Nasonex 50 mcg/actuation nasal spray,non-aerosol 11/27/2014 spray 2 sprays in each nostril by intranasal route once daily multivitamin Oral tablet (12 sources) End: 05-13-2016 take 1 tablet by [...] Discontinued naproxen sodium 220 mg oral capsule (12 sources) Nonsteroidal Anti-inflammatory Drug End: 11-27-2014 take 1 capsule by mouth once daily naproxen sodium 220 mg oral capsule 11/27/2014 take 1 capsule by oral route daily obeticholic acid 5 mg oral tablet (16 sources) Farnesoid X Receptor Agonist Start: 01-09-2020 take 2 tablets by mouth once daily Ocaliva 5 mg oral tablet 01/09/2020 TAKE 2 TABLET DAILY. Start: 08-29-2019 Obeticholic Ac id (OCALIVA) 5 MG TABS 5 mg daily 30 tablet 0 08/29/2019 Active Start: 03-24-2018 take 1 tablet by janie th once daily Ocaliva 5 mg oral tablet 01/24/2019 TAKE 1 TABLET DAILY. olopatadine 2 mg/ml ophthalmic solution (20 sources) Histamine-1 Receptor Inhibitor End: 07-28-2017 take 1 drop(s) into the eye(s) twice daily Patanol 0.1 % ophthalmic drops 07/28/2017 instill 1 drop into affected eye(s) by ophthalmic route 2 times per day at an interval of 6 to 8 hours take 1 drop(s) into the eye(s) once daily Pataday 0.2 % ophthalmic (eye) drops instill 1 drop into both eyes by ophthalmic route once daily Macungie-3 350 mg-235 mg- 90 mg-597 mg oral capsule,delayed release(DR/EC) (12 sources) take 1 capsule by mouth once daily Macungie-3 350 mg-235 mg- 90 mg-597 mg oral [...] oral route 2 times per day oral (12 sources) oral ta ke once daily Probiotic oral (12 sources) Probiotic oral o nce daily Restasis 0.05 % ophthalmic (eye) dropperette (1 source) Start: 8 take 1 drop(s) into the eye(s) every twelve hours Restasis 0.05 % ophthalmic (eye) dropperette 02/01/2018 instill 1 drop into both eyes by ophthalmic route every 12 hours Restore ete vitamin (10 sources) Restore ete kaleb min 2 tablets daily- eye dr. Flores (12 sources) Cholinergic Muscarinic Antagonist End: 4 solifenacin Oral 06/12/2013 Suprep Bowel Prep Kit 17.5-3.13-1.6 gram oral recon soln (4 sources) Start: 7 End: 8 Suprep Bowel Prep Kit 17.5-3.13-1.6 gram oral recon soln 11/12/2016 07/28/2017 take as directed Start: 09-19-2015 Suprep Bowel P rep Kit 17.5-3.13-1.6 gram oral recon soln 09/19/2015 take as directed traMADol hydrochloride 50 mg oral tablet (12 sources) Opioid Agonist End: 05-29-2014 take 1 tablet by mouth every four to six hours as needed tramadol 50 mg oral tablet 05/29/2014 take 1 tablet (50 mg) by oral route every 4-6 hours as needed triamcinolone acetonide 0.055 mg/actuat metered dose nasal spray (20 sources) Corticosteroid Nasacort 55 mcg nasal aerosol,spray apply 1 spray by nasal route daily Triamcinolone Ac etonide (NASACORT NASAL) Use in each nostril. 0 Suspended Triamcinolone Ac etonide (NASACORT NASAL) Use in each nostril. 0 Active Triamcinolone Ac etonide (NASACORT AQ NA) by Nasal route daily One spray in each nostril once a day 0 Active Triamcinolone Ac etonide (NASACORT AQ NA) by Nasal route 0 Active ubiquinol 100 mg oral capsule (12 sources) Start: 07-11-2019 take 2 capsules by [...] [Increased frequency of urination] Episodic Menopausal disorders (4 sources) Unspecified menopausal and postmenopausal disorder; Translations: [...] of central nervous system] 03-22-2023 Episodic Other nutritional; endocrine; and metabolic disorders (2 sources) Body mass index 30+ - obesity; Translations: [Body mass index (BMI) 30.0-30.9, adult] 03-23-2023 Chronic Other nutritional; endocrine; and metabolic disorders (1 source) Body mass index (BMI) 30.0-30.9, adult; Translations: [Body mass index (BMI) 30.0-30.9, adult] Onset: 03-23-2023 Chronic Residual codes; unclassified (6 sources) History of [...] Episodic Other diseases of kidney and ureters (6 sources) Disorder of kidney and ureter, unspecified Onset: 11-27-2014 Episodic Other gastrointestinal disorders (1 source) Diarrhea, unspecified; Translations: [DIARRHEA UNSPECIFIED] Onset: 04-25-2022 Episodic Other nervous system disorders (1 source) Other specified disorders of central nervous system; Translations: [Other specified disorders of central nervous system] Onset: 03-23-2023 Episodic Other non-traumatic joint disorders (4 sources) Pain in left knee; Translations: [PAIN IN LEFT KNEE] Onset: 11-19-2021 Episodic Other screening for suspected conditions (not mental disorders or infectious disease) (12 sources) Encounter for screening mammogram for malignant neoplasm of breast; Translations: [Abnormal finding of blood chemistry, unspecified] Onset: 12-25-2021 Episodic Residual codes; unclassified (1 source) Family [...] Interpretation Reference Range Facility Progress Noteson 06-17-2023 [employer] Interface Message Text Patient was identified by name and date of . Lisa Huff RN Patient at risk for falls:No Falls Risk protocol implemented: No Normal [facility] XR C-SPINE FLEX/EXT ONLY 2 V [...] most likely postsurgical. MACRO: None Normal [facility] XR Cervical spine Lateral Vi ews [...] are noted most likely postsurgical. MACRO: None [facility] (narrative) [facility] XR Cervical spine Lateral Vi ews W flexion and W extensionOrdered By: Edin Toney on 06-17-2023 [employer] Work Phone: Progress Noteson 06-16-2023 [employer] Aut[employer] Interface Message Text DX: 31Mar2023 Posterior cervical laminoplasty, C4 to C7, with Simulmedia laminoplasty system. LAST VISIT: 22apr2023 Ruddy SIMON Ms Rubio returns today. Normal bowel habits. Denies fever/chills. PE: Incision C/D/I, at neuro baseline, deltoids intact. Rowland removed from surgical incision, steri-strips applied. INV: [...] views of her cervical spine. Normal [facility] Telephone Encounteron 2022 [employer] Authentication Interface Message Text RN called pt. [...] Pt asked how to send messages in [employer]. RN let her know to make sure she is logged into her [employer] and to send messages to Dr Vergara and they will get to his RN. Pt agreeable. No further questions. Pt verbalized understanding. ----- Message from Judith Palm sent at 05/04/2023 12:15 PM EST ----- Regarding: clarification Needs clarification on her neck exercises. Please call. Normal [facility] Progress Noteson 04-22-2023 [employer] Interface Message Text Soft cervical collar dispensed to patient in clinic. Normal [facility] [employer] Interface Message Text Patient was identified by name and date of . Jose Guadalupe Fox RN Patient at risk for falls:Yes Falls Risk protocol implemented: Yes DX: 31Mar2023 Posterior cervical laminoplasty, C4 to C7, with Simulmedia laminoplasty system. LAST VISIT: [facility] Ms Rubio [...] views of the cervical spine. Normal [facility] Telephone Encounteron 2022 [employer] Interface Message Text RN called SNF [...] EST ----- Regarding: ? from SN[facility] [phone] Calling to question can she get a shower ? Hair washed ? Still has justine - Dressing off today Normal [facility] Care Plan Noteon 04-03-2023 [employer]hentication Interface Message Text Problem: Routine Care: [...] will be met Outcome: Progressing Normal [facility] Discharge Planning Noteon [employer] Interface Message Text Ms Banerjee will be discharging tomorrow to [facility] [place]. Due to distance, she was required to pay 483$ up front for transport. Her niece has agreed to drive her and will be picking her up tomorrow at 1pm. SNF agreeable and aware of pick uptime. CM will remain available to assist with discharge planning and needs as warranted. Eloisa URBINA, quality control (8:30-4:00) Normal [facility] [employer]hentication Interface Message Text CASE MANAGEMENT/SOCIAL WORK SNF DC NOTE: Pt has been cleared for transfer to SNF on 04.03. Pt will be transferred to [facility] via Johan Santoyo ([id number]) at 1pm Nursing report may be called to [phone] Support person notified: Patient/Family, team aware of above and agreeable. For discharge, please ensure the following is completed: ??? MD to place DC order, reconcile meds, and print narcotics to go with patient to [facility] ??? [place] to print Discharge Summary, [place], Summary of Care, Narcotic Scripts, and Signature Page and place in a packet to be given to regional otr company driver If transport/discharge needs to be adjusted/cancelled, team (MD/RN) to cancel transport, update support person, and update receiving facility. Eloisa Tan BSN, quality control [phone] (available 8:30-4:00) Normal [facility] [place] 04-02-2023 [employer] Interface Message Text Social Work/Case Management: Reason for placement: PT/OT Therapies Patient level of care required : Skilled Applicant's potential for returning to community: Convalescent stay:<30 days Prognosis: Good Rehab Potential: Improve Mental/Behavioral status:Alert, Oriented, Cooperative Affect: Calm Social Work Assessment Functional status prior to admission: independent Community agencies active with patient: none aware of Support system: family Capacity for independent living/assistant terminal manager plan:good Other hospital admissions within the past 60 days: no Other pertinent problems: na Normal [facility] Progress Noteson 04-02-2023 [employer] Interface Message Text CASE MANAGEMENT NOTE: CM aware of FOC placement for SNF via allscripts and has been ACCEPTED for placement pending pre certification to [facility] MD to place dc order to SNF CM to complete HENS CM to complete GR CM to arrange for [place] CM to notify patient and family Eloisa Pineda Salesperson Flowers [phone] Normal [facility] Anesthesia Postprocedure Nya lopes 04-01-2023 [employer] Authentication Interface Message Text Anesthesia Postoperative Assessment: [...] EVENTS: No notable events documented. Normal [facility] Care Plan Noteon 04-01-2023 [employer] Authentication Interface Message Text Problem: Routine Care: [...] will be met Outcome: Progressing Normal The [facility] Preprocedure Eval mariion 03-31-2023 [employer] Interface Message Text ASA: 3 No [...] were discussed with the patient and/or legal loan servicing representative. The risks, benefits and alternatives were reviewed. Questions regarding anesthesia were answered. Patient and/or legal loan servicing representative knows such anesthetics and procedures may be performed by Resident physicians, Certified Anesthesiologist Assistants, or Certified Nurse Anesthetists under the supervision of a physician. The patient /or the patient's legal loan servicing representative agree with the plan for anesthesia. Normal [facility] Anesthesia Transfer Of Careo n 03-31-2023 [employer] Authentication Interface Message Text Patient taken to [...] Todd Tan MD CAA: Moe Macario CAA COREMAKING SUPERVISOR: Norbert Parks APRN-RAMON Anesthesia Student: Archana Rivas [...] 03/31/23 1112 18 gauge Right Hand (Active) Arterial Line: 03/31/23 Left (Active) Airway Insertion Details [REMOVED] Advanced Airway: ETT, Oral;Cuffed #7 (Removed) 03/31/23 1109 Pre-Oxygenation/ Induction: Mask Rapid Sequence Induction?: Mask Ventilation: Easy Blade size: S3 Visualization: Airway Type: ETT, Oral;Cuffed Airway Size: #7 Post Insertion Assessment: Confirmation: Equal bilateral breath sounds, CO2 confirmed # Attempts >1: Special Equipment: Glidescope;Bite block placed Present on Admission?: Previously Removed / Not Present: Removal Reason: Not Removed at Discharge: Removed 03/31/23 1309 Location (cm) 20 03/31/23 1109 Measured from: Lips 03/31/23 110 Secured via: Taped 03/31/23 110 [REMOVED] Advanced Airway: (Removed) 03/31/23 110 Pre-Oxygenation/ Induction: Rapid Sequence Induction?: Mask Ventilation: [...] of the report was received. JAMES Flores [facility] Brief Operative Noteon 03-31 [employer] Authentication Interface Message Text Brief Operative Note MAIN OR 01 Massimo Banerjee 72 year old female Surgical Contact Serial Number: [id number] Preoperative Diagnosis: Cervical spondylosis with myelopathy [M47.12] Postoperative Diagnosis: * Cervical spondylosis with myelopathy [M47.12] Procedures: No data filed C4-C7 laminoplasty Surgeon(s): Surgeon(s): Geri Vergara MD Staff: Nurse: Dea Santana RN Scrub: Mathew Sethi, AURORA; Sanjiv Arriaga Extra Hand Nurse: Mathew Sethi, AURORA; Rochelle Fuentes RN Orchid Worker: Marry Hector Spinal Cord Monitor: Raz [employer]Mtz Cabinet Mounter: Tammy Ridley MD Anesthesia: General Anesthesiologist: Todd Tan MD CAA: Moe Macario CAA COREMAKING SUPERVISOR: Norbert Parks APRN-RAMON Anesthesia Student: Archana Rivas Specimen(s): * No [...] Ridley MD 03/31/2023 1:09 PM Normal [facility] Care Plan Noteon 03-31-2023 [employer] Authentication Interface Message Text Problem: Routine Care: [...] will be met Outcome: Progressing Normal [facility] GLUCOSE, FINGERSTICK-IN OFFI CEon 03-31-2023 Glucose [Mass/Vol] 126 mg/dL High 80-116 [facility] Comment on above: Result Comment: Cedrick zavaleta RN, APN, MD Performed By: #### [id number] ####NURSING GLUCOSE [id number] [place], [address] Glucose [Mass/Vol] 136 mg/dL High 80-116 [facility] [employer] Comment on above: Performed By: #### 8 [id number] #### NURSING GLUCOSE PROGRAM [address] [place], [address] OP Noteon 03-31-2023 Solder [employer]ayer Authentication Interface Message Text Name: MASSIMO BANERJEE MR#: [id number] ENC#: [id number] Date of Procedure: 03/31/2023 ATTENDING SURGEON: Geri Vergara MD CERTIFIED ADAPTIVE PHYSICAL EDUCATOR: Tammy Ridley MD PREOPERATIVE DIAGNOSIS: Cervical spondylosis [...] apparent facet joints was marked with a [place] 4 and a lateral cervical spine x-ray [...] in layers over vancomycin powder and a 10-Danish round Hemovac drain, simple interrupted #2 Vicryl [...] collar on postoperative day 1. MD FRANCISCO Wellington/MedQ/Dict: 04/01/2023 09:01:04 TRANS: 04/01/2023 09:13:01 JOB: [id number] DictJob#: [id number] Normal [facility] Gastroenterology Office/Clin ic Noteon 03-25-2023 Gastroenterology Office/Clinic [...] well controlled Denies new medications Recent RUQ 2020 -Fibrosis -Mild fatty liver -Gallstones 06/2020 T richard 0.1 0.4 0.5 0.3 Alb 3.7 3.5 3.5 3.7 4.5 3.4 ALT 64 60 73 42 30 36 AST 42 47 41 27 26 22 ALP 209 197 212 162 144 103 Cr 1.15 1.03 Hgb 12 12.9 PLT 163 198 Liver biopsy 2002 mild periportal chronic inflammation and focal fatty change Imaging MRCP 2002 No cirrhosis 6 mm pancreatic cystic lesion within the uncinate process Renal cyst CT Abd/pelvis 2017 - gallstones - cirrhosis with steatosis Colonoscopy 2017 - Diverticulosis - no colonic polyps Colonoscopy [...] prn [2] (more content not included)... Normal [facility] ABO RH TYPEon 03-23-2023 ABO and Rh group Nom (Bld) Blood group A Rh(D) positive Normal [facility] Comment on above: Performed By: #### Frank NOLAN #### [facility] [address] [place] [address], BASIC METABOLIC PANELon 10-3 Anion gap [Moles/Vol] 14 mmol/L Normal 10-20 [facility] Comment on above: Performed By: #### C H8, HEPATIC #### [facility] [address] [place] [address], Calcium [Mass/Vol] 9.9 mg/dL Normal 8.4-10.[address] [facility] Comment on above: Performed By: #### C H8, HEPATIC #### [facility] [address] [place] [address], Chloride [Moles/Vol] 104 mmol/L Normal 97-111 [facility] Comment on above: Performed By: #### C H8, HEPATIC #### [facility] [address] [place], [place], CO2 [Moles/Vol] 26 mmol/L Normal 21-30 The [facility] Comment on above: Performed By: #### C H8, HEPATIC #### [facility] [address] [place], [place], Creatinine [Mass/Vol] 1.31 mg/dL High 0.50-1.10 The [facility] Comment on above: Performed By: #### C H8, HEPATIC #### [facility] [address] [place] [address], ESTIMATED GFR (CKD-EPI) 43 mL/min/1.73sqm Low >=60 The [facility] Comment on above: Result Comment: 2020 CKD EPI Equation using Creatinine without Race Comment: Estimated glomerular filtration rate (eGFR) is calculated without a race coefficient. Values should be interpreted in the context of the patient's full clinical presentation. Reference: 1. Bill C, Sharona M, Bob CALDERON, et al.. A Unifying Approach for GFR Estimation: Recommendations of the NKF-ASN Task Force on Reassessing the Inclusion of Race in Diagnosing Kidney Disease. [place] Journal of Kidney Diseases 2021;79(2):268-88.e1. 2. N Engl J Med 1 Vol. 385 Issue 19 Pages 8976-2718 Performed By: #### C H8, HEPATIC #### [facility] [address] [place], [place], Glucose [Mass/Vol] 187 mg/dL High 80-116 The [facility] Comment on above: Performed By: #### C H8, HEPATIC #### [facility] [address] [place], [place], Potassium [Moles/Vol] 4.2 mmol/L Normal 3.3-5.3 [facility] Comment on above: Performed By: #### C H8, HEPATIC #### [facility] [address] [place], [place], Sodium [Moles/Vol] 140 mmol/L Normal 135-148 [facility] Comment on above: Performed By: #### C H8, HEPATIC #### [facility] [address] [place], [place], Urea nitrogen [Mass/Vol] 40 mg/dL High 8-22 [facility] Comment on above: Performed By: #### C H8, HEPATIC #### [facility] [address] [place], [place], Basic metabolic 2000 panelon 03-23-2023 Anion gap [Moles/Vol] 14 mmol/L 10 - 20 [facility] Calcium [Mass/Vol] 9.9 mg/dL 8.4 - 10. 4 mg/dL [facility] Chloride [Moles/Vol] 104 mmol/L 97 - 11 1 mmol/L [facility] CO2 [Moles/Vol] 26 mmol/L 21 - 30 mmol/L [facility] Creatinine [Mass/Vol] 1.31 mg/dL High 0.50 - 1.10 mg/dL [facility] GFR/1.73 sq M.predicted MDRD (S/P/Bld) [Vol rate/Area] 43 mL/min/{1.73_m2} Low - PINF [facility] Comment on above: 2020 CKD EPI Equatio [...] Inclusion of Race in Diagnosing Kidney Disease. [place] Journal of Kidney Diseases 2021;79(2):268-88.e1. 2. N Engl J Med 2020 Vol. 385 Issue 19 Pages 4449-6618 Glucose [Mass/Vol] 187 mg/dL High 80 - 116 mg/dL [facility] Interpretation and review of laboratory results Abnormal [facility] Potassium [Moles/Vol] 4.2 mmol/L 3.3 - 5.3 mmol/L [facility] Sodium [Moles/Vol] 140 mmol/L 135 - 148 mmol/L [facility] Urea nitrogen [Mass/Vol] 40 mg/dL High 8 - 22 mg/dL [facility] CBC WITH DIFFERENTIALon 02-23 Basophils (Bld) [#/Vol] 0.03 10*3/uL Normal 0.00-0.20 [facility] Comment on above: Performed By: #### C BCDSAT ####[facility] [[email or web address] PATHOLOGY [id number] [place] [address], Basophils/100 WBC (Bld) 0.7 % Normal <=1.9 [facility] Comment on above: Performed By: #### C BCDSAT ####[facility] [[email or web address] PATHOLOGY [id number] [place] [address], Eosinophils (Bld) [#/Vol] 0.15 10*3/uL Normal 0.00-0.70 [facility] Comment on above: Performed By: #### C BCDSAT ####[facility] [[email or web address] PATHOLOGY [id number] [place] [address], Eosinophils/100 WBC (Bld) 3.7 % Normal 0.1-4.0 [facility] Comment on above: Performed By: #### C BCDSAT ####[facility] [[email or web address] PATHOLOGY [id number] [place] [address], Erythrocyte distribution width (RBC) [Ratio] 13.6 % Normal 11.5-14.5 [facility] Comment on above: Performed By: #### C BCDSAT ####[facility] [[email or web address] PATHOLOGY [id number] [place] [address], Hematocrit (Bld) [Volume fraction] 33.8 % Low 36.0-46.[address] [facility] Comment on above: Performed By: #### C BCDSAT ####[facility] [[email or web address] PATHOLOGY [id number] [place] [address], Hemoglobin (Bld) [Mass/Vol] 11.1 g/dL Low 12.0-15.[address] [facility] Comment on above: Performed By: #### C BCDSAT ####[facility] [[email or web address] PATHOLOGY [id number] [place] [address], Lymphocytes (Bld) [#/Vol] 0.74 10*3/uL Low 1.00-4.80 [facility] Comment on above: Performed By: #### C BCDSAT ####[facility] [[email or web address] PATHOLOGY [id number] [place] [address], Lymphocytes/100 WBC (Bld) 18.3 % Low 24.0-44.0 [facility] Comment on above: Performed By: #### Kaylene DORMANAT ####[facility] [[email or web address]] PATHOLOGY [id number] [place], [place], MCH (RBC) [Entitic mass] 29.8 pg Normal 26.0-34.0 [facility] Comment on above: Performed By: #### C DANDYAT ####[facility] [[email or web address]] PATHOLOGY [id number] [place] [address], MCHC (RBC) [Mass/Vol] 32.9 g/dL Normal 32.0-35.9 [facility] Comment on above: Performed By: #### Kaylene DORMANAT ####[facility] [[email or web address]] PATHOLOGY [id number] [place] [address], MCV (RBC) [Entitic vol] 91 fL Normal 80-100 [facility] Comment on above: Performed By: #### Kaylene DORMANAT ####[facility] [[email or web address]] PATHOLOGY [id number] [place] [address], Monocytes (Bld) [#/Vol] 0.34 10*3/uL Normal 0.20-1.00 [facility] Comment on above: Performed By: #### Kaylene DORMANAT ####[facility] [[email or web address]] PATHOLOGY [id number] [place], [place], Monocytes/100 WBC (Bld) 8.4 % Normal 2.0-11.0 [facility] Comment on above: Performed By: #### Kaylene DORMANAT ####[facility] [[email or web address]] PATHOLOGY [id number] [place] [address], Neutrophils (Bld) [#/Vol] 2.79 10*3/uL Normal 1.50-8.00 [facility] Comment on above: Performed By: #### C BCDARRELLAT ####[facility] [[email or web address]] PATHOLOGY [id number] [place], [place], Neutrophils/100 WBC (Bld) 68.9 % Normal 31.0-76.0 [facility] Comment on above: Performed By: #### C VARUNDSAT ####[facility] [[email or web address]] PATHOLOGY [id number] [place], [place], Platelet mean volume (Bld) [Entitic vol] 9.8 fL Normal 7.5-11.2 [facility] Comment on above: Performed By: #### C BCDSAT ####[facility] [[email or web address] PATHOLOGY [id number] [place], [place], Platelets (Bld) [#/Vol] 109 10*3/uL Low 150-400 [facility] Comment on above: Performed By: #### C BCDSAT ####[facility] [[email or web address] PATHOLOGY [id number] [place], [place], RBC (Bld) [#/Vol] 3.73 10*6/uL Low 4.00-5.20 [facility] Comment on above: Performed By: #### C BCDSAT ####[facility] [[email or web address] PATHOLOGY [id number] [place], [place], WBC (Bld) [#/Vol] 4.0 10*3/uL Low 4.5-11.5 [facility] Comment on above: Performed By: #### C BCDSAT ####[facility] [[email or web address]] PATHOLOGY [id number] [place], [place], CT C-SPINE W/O CONTRASTon CT C-SPINE [...] neural foraminal stenoses. MACRO: None Normal [facility] CT Cervical spine WO contras tOrdered By: Alexandra Neri on 03-23-2023 CT DLP 324.15 (mGy.cm) [employer] Work Phone: CT Series Topogram,Topogram,C SPINE WO [employer] Work Phone: CTDI VOL 0.07 (mGy),0.08 (mGy),15.96 (mGy) [employer] Work Phone: PHANTOM TYPE IEC Body Dosimetry Phantom,IEC Body Dosimetry Phantom,IEC Body Dosimetry Phantom [employer] Work Phone: [employer] Work Phone: CT Cervical spine WO contras [...] and severe neural foraminal stenoses. MACRO: None [facility] Radiology Study observation (narrative) [facility] EKG 12 LEAD - PERFORMon 10-3 Diagnosis Normal sinus rhythm Nonspecific ST abnormality Abnormal ECG No previous ECGs available Confirmed by BREN AUSTIN ([id number]) on 03/23/2023 6:39:31 PM [facility] by E[facility] 77 BPM [facility] P wave axis 73 degrees [facility] P-R Interval 126 ms [facility] Q-T interval 372 ms [facility] Q-T interval corrected 420 ms [facility] QRS axis 72 degrees [facility] QRS duration 80 ms [facility] T wave axis 59 degrees [facility] GLUCOSE, FINGERSTICK-IN OFFI CEon 03-23-2023 Glucose [Mass/Vol] 183 mg/dL High 80-[address] [facility] Comment on above: Result Comment: Foll ow Protocol Performed By: #### 8 [id number] #### NURSING GLUCOSE PROGRAM [address] [place] [address], [address] HEPATIC FUNCTION PANELon Albumin [Mass/Vol] 3.9 g/dL Normal 3.4-5.[address] [facility] Comment on above: Performed By: #### C H8, HEPATIC #### [facility] [address] [place] [address], ALK 138 IU/L Normal 40-[address] [facility] Comment on above: Performed By: #### C H8, HEPATIC #### [facility] [address] [place] [address], ALT [Catalytic activity/Vol] 33 U/L Normal 7-[address] [facility] Comment on above: Performed By: #### C H8, HEPATIC #### [facility] [address] [place] [address], AST [Catalytic activity/Vol] 39 U/L Normal 7-[address] [facility] Comment on above: Performed By: #### C H8, HEPATIC #### [facility] [address] [place] [address], Bilirubin [Mass/Vol] 0.7 mg/dL Normal 0.1-1.[address] [facility] Comment on above: Performed By: #### C H8, HEPATIC #### [facility] [address] [place] [address], Bilirubin.direct [Mass/Vol] 0.20 mg/dL Normal 0.10-0.[address] [facility] Comment on above: Performed By: #### C H8, HEPATIC #### [facility] [address] [place] [address], Protein [Mass/Vol] 6.2 g/dL Normal 5.7-8.[address] [facility] Comment on above: Performed By: #### C H8, HEPATIC #### [facility] [address] [place], [address] Laboratory - Blood bankon ABO and Rh group Nom (Bld) Blood group A Rh(D) positive [facility] ABO and Rh group Nom (Bld) No Previous Results [facility] Comment on above: Patient does not req uire a 2nd sample drawn prior to surgery date of 03/31/2023. Specimen meets Blood Bank's Pre-Surgical Protocol and is valid within 14 days from date of collection but will at midnight on the day of approved Surgery. Blood group antibody screen Ql Negative [facility] ABO and Rh group Nom (Bld) Blood group A Rh(D) positive [facility] Laboratory - Chemistry and C hemistry - challengeon 03-23-2023 Albumin [Mass/Vol] 3.9 g/dL 3.4 - 5.1 g/dL [facility] ALP [Catalytic activity/Vol] 138 U/L [facility] ALT [Catalytic activity/Vol] 33 U/L [facility] AST [Catalytic activity/Vol] 39 U/L [facility] Bilirubin [Mass/Vol] 0.7 mg/dL 0.1 - 1 .5 mg/dL [facility] Bilirubin.direct [Mass/Vol] 0.20 mg/dL 0.10 - 0.30 mg/dL [facility] Protein [Mass/Vol] 6.2 g/dL 5.7 - 8.1 g/dL [facility] Glucose [Mass/Vol] 183 mg/dL High 80 - 116 mg/dL [facility] Comment on above: Follow Protocol Notified AURORA WAKEFIELD MD Laboratory - Coagulationon 1 aPTT Coag (Bld) [Time] 36 s [facility] INR Coag (PPP) [Relative time] 1.13 {INR} High 0.90 - 1.10 [facility] PT Coag (PPP) [Time] 12.6 s [facility] - Hematology and Cell countson 03-23-2023 [...] 0.74 10*3/uL Low 1.00 - 4.80 K/uL [facility] Lymphocytes/100 WBC (Bld) 18.3 % Low 24.0 - 44.0 % [facility] MCH (RBC) [Entitic mass] 29.8 pg 26.0 - 34.0 pg [facility] MCHC (RBC) [Mass/Vol] 32.9 g/dL 32.0 - 35.9 g/dL [facility] MCV (RBC) [Entitic vol] 91 fL 80 - 100 fL [facility] Monocytes (Bld) [#/Vol] 0.34 10*3/uL 0.20 - 1.00 K/uL [facility] Monocytes/100 WBC (Bld) 8.4 % 2.0 - 11.0 % [facility] Neutrophils (Bld) [#/Vol] 2.79 10*3/uL 1.50 - 8.00 K/uL [facility] Neutrophils/100 WBC (Bld) 68.9 % 31.0 - 76.0 % [facility] Platelet mean volume (Bld) [Entitic vol] 9.8 fL 7.5 - 11.2 fL [facility] Platelets (Bld) [#/Vol] 109 10*3/uL Low 150 - 400 K/uL [facility] RBC (Bld) [#/Vol] 3.73 10*6/uL Low [facility] WBC (Bld) [#/Vol] 4.0 10*3/uL Low 4.5 - 11.5 K/uL [facility] No Panel Informationon 03-23 [facility] Interpretation and review of laboratory results Normal [facility] Interpretation and review of laboratory results Abnormal [facility] Interpretation and review of laboratory results Normal [facility] Interpretation and review of laboratory results Abnormal [facility] Interpretation and review of laboratory results Abnormal [facility] PARTIAL THROMBOPLASTIN TIMEo n 03-23-2023 aPTT Coag (Bld) [Time] 36 s Normal 25-[address] [facility] Comment on above: Performed By: #### A PTT, PT #### S PATHOLOGY LABORATORY [address] [place] [address], PROTHROMBIN TIME AND INRon 1 INR Coag (PPP) [Relative time] 1.13 {INR} High 0.90-1.[address] [facility] Comment on above: Performed By: #### A PTT, PT #### S [facility] [address] [place], [place], PT Coag (PPP) [Time] 12.6 s Normal 9.7-12.[address] [facility] Comment on above: Performed By: #### A PTT, PT #### S [facility] [address] [place], [place], PSE Appt H AND Jeremy [employer] Authentication Interface Message Text Patient was identified by name and date of . Kassandra Griggs Patient at risk for falls:No Falls Risk protocol implemented: No Normal The [facility] Patient Instructionson 03-23 [employer] Authentication Interface Message Text On the morning [...] all Co Q 10 , Vitamin E, [place] 3, fish oil and herbal supplements for 1 week prior to surgery Do not take Valsartan,hydrochloro thiazide morning of surgery Don't take any metformin evening before and the morning of surgery Do not take any diabetes medication on the morning of the surgery Normal The [employer] [facility] Progress Noteson 03-23-2023 [employer] Authentication Interface Message Text DX: Cervical spondylosis with myelopathy LV: [id number] Ms Banerjee comes in today with family. [...] the day of their surgery. Normal [facility] TYPE AND SCREENon 03-23-2023 ABO and Rh group Nom (Bld) Blood group A Rh(D) positive Normal [facility] Comment on above: Performed By: #### T S #### S PATH[facility]Y LABORATORY [address] [place] [address], ABO and Rh group Nom (Bld) No Previous Results Normal [facility] Comment on above: Result Comment: Shannan ent does not require a 2nd sample drawn prior to surgery date of 03/31/2023. Specimen meets Blood Bank's Pre-Surgical Protocol and is valid within 14 days from date of collection but will at midnight on the day of approved Surgery. Performed By: #### T S #### [facility] [address] [place] [address], ABSC INT Negative Normal The [employer] [facility] Comment on above: Performed By: #### T S #### [facility] [address] [place] [address], MRI Abdomen w/ + w/o Contras ton [...] Electronically Signed in Other Vendor System) Normal [facility] Comment on above: Order Comment: medtr onic bladder stim Progress Noteson 02-11-2023 [employer] Authentication Interface Message Text A soft cervical collar was dispensed to patient in clinic today. Normal [facility] [employer] Authentication Interface Message Text Patient was identified by name and date of . Lisa Huff RN Patient at risk for falls:Yes Falls Risk protocol implemented: Yes Ambulates with cane Lisa Huff RN Normal [facility] Progress Noteson 02-10-2023 [employer] Authentication Interface Message Text DX: Cervical myelopathy LV: [id number] Ms Banerjee returns today. She received a ANAHY [id number]. It affected her neck symptoms on the left side but it did not affect her low back pain. INV: MRI cervical performed [id number] IMP: 71yo female significant cervical cord compression, significant clinical myelopathy. PLAN: I again offered her surgery. I am not sure how the ANAHY was done. She can call the office schedule surgery or follow up every 4-6 months. 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 Lisa Huff RN Patient at risk for falls:No Falls Risk protocol implemented: No Normal The [employer] [facility] Progress Noteson 12-23-2022 [employer] Authentication Interface Message Text DX: Cervical myelopathy LV: [id number] Ms Banerjee returns today. [facility]ong [facility] pain management refused to do a ANAHY. She is going to talk to her new pain management docs in [place]. INV: MRI cervical performed [id number] IMP: 71yo female significant cervical cord compression [...] follow up every 4-6 months. Normal The [employer] [facility] AFP TUMOR MARKERon 3 AFP Tumor Marker 3.9 ng/mL Normal <8.1 [facility] Comment on above: Result Comment: This test was performed on the [employer] IM Immunoassay platform by [employer] which is a two-site sandwich chemiluminescent immunoassay. It is important to note that assays using different manufacturers and/or methods may not be comparable. Performed By: #### H [facility] #### [facility] (DEFAULT) [address] [place] [address] CA 19-9on 11-23-2022 CA 19-9 28.39 U/mL Normal <=37.00 [facility] Comment on above: Result Comment: This test was performed on the [employer] IM Immunoassay platform which is a 2-step sandwich chemiluminescent immunoassay. It is important to note that assays using different manufacturers and/or methods may not be comparable. Performed By: #### C A199, LIOR #### [facility] (DEFAULT) [address] [place] [address] CBC,PLATELETSon 11-23-2022 Hematocrit (Bld) [Volume fraction] 36.5 % Normal 34.9-44.3 [facility] Comment on above: Performed By: #### H EMOGC #### [facility] (DEFAULT) [address] [address] Hemoglobin (Bld) [Mass/Vol] 11.7 g/dL Normal 11.4-15.2 [facility] Comment on above: Performed By: #### H EMOGC #### [facility] (DEFAULT) [address] [place] [address] MCV (RBC) [Entitic vol] 95.3 fL Normal 79.6-97.7 [facility] Comment on above: Performed By: #### H EMOGC #### [facility] (DEFAULT) [address] [address] Mean Cell Hgb 30.5 pg Normal 25.9-33.9 [facility] Comment on above: Performed By: #### H EMOGC #### [facility] (DEFAULT) [address] [place] [address] Mean Cell Hgb Conc 32.1 g/dL Normal 31.4-35.9 [facility] Comment on above: Performed By: #### H EMOGC #### [facility] (DEFAULT) [address] [address] Mean Platelet Volume Normal [facility] Comment on above: Result Comment: Not measured Performed By: #### H EMOGC #### [facility] (DEFAULT) [address] [place] [address] Platelets (Bld) [#/Vol] 122 10*3/uL Low 150-393 [facility] Comment on above: Performed By: #### H EMO #### [facility] (DEFAULT) [address] [place] [address] RBC (Bld) [#/Vol] 3.83 10*6/uL Low 3.91-5.04 [facility] Comment on above: Performed By: #### H EMO #### [facility] (DEFAULT) [address] [place] [address] 89365 RBC Distribution 12.5 % Normal 10.8-14.9 [facility] Comment on above: Performed By: #### H EMO #### [facility] (DEFAULT) [address] [place] [address] 22200 WBC (Bld) [#/Vol] 6.45 10*3/uL Normal 3.99-11.19 [facility] Comment on above: Performed By: #### H EMO #### [facility] (DEFAULT) [address] [place] [address] 05709 CHEM 6 (LYTES, BUN CREA)on 0 --2022 Anion gap [Moles/Vol] 14 mmol/L Normal 7-17 [facility] Comment on above: Performed By: #### H FP, IRBC, CHM6, GGTB #### [facility] (DEFAULT) [address] [place] [address] 80282 Chloride [Moles/Vol] 104 mmol/L Normal 98-108 [facility] Comment on above: Performed By: #### H FP, IRBC, CHM6, GGTB #### [facility] (DEFAULT) [address] [place] [address] 80736 CO2 [Moles/Vol] 28 mmol/L Normal 21-31 [facility] Comment on above: Performed By: #### H FP, IRBC, CHM6, GGTB #### [facility] (DEFAULT) [address] [place] [address] 19166 Creatinine [Mass/Vol] 1.22 mg/dL High 0.50-1.20 [facility] Comment on above: Performed By: #### H DONNA IRBC, CHM6, GGTB #### [facility] (DEFAULT) [address] [place] [address] 23240 GFR/1.73 sq M.predicted among non-blacks MDRD (S/P/Bld) [Vol rate/Area] 47 mL/min/{1.73_m2} Low >=60 [facility] Comment on above: Result Comment: Repo rted eGFR is based on the CKD-EPI 2020 equation using creatinine, age, and sex. Performed By: #### H DONNA IRBC, CHM6, GGTB #### [facility] (DEFAULT) [address] [place] [address] 39892 Potassium [Moles/Vol] 4.1 mmol/L Normal 3.5-5.0 [facility] Comment on above: Performed By: #### H DONNA IRBC, CHM6, GGTB #### [facility] (DEFAULT) [address] [place] [address] 42027 Sodium [Moles/Vol] 142 mmol/L Normal 135-145 [facility] Comment on above: Performed By: #### H FP, IRBC, CHM6, GGTB #### [facility] (DEFAULT) [address] [place] [address] 89546 Urea nitrogen [Mass/Vol] 35 mg/dL High 7-25 [facility] Comment on above: Performed By: #### H DONNA, IRBC, CHM6, GGTB #### [facility] (DEFAULT) [address] [place] [address] 56085 Urea nitrogen/Creatinine [Mass ratio] 29 mg/mg Normal [facility] Comment on above: Performed By: #### H FP, IRBC, CHM6, GGTB #### [facility] (DEFAULT) [address] [place] [address] 70941 FERRITINon 07-03-2023 Ferritin [Mass/Vol] 137.5 ng/mL Normal 10.0-291.0 [facility] Comment on above: Performed By: #### F ERIB, B12B #### [facility] (DEFAULT) [address] [place] [address] 64632 FOLATE, SERUMon 11-23-2022 Folate 64.84 ng/mL Normal >5.38 [facility] Comment on above: Performed By: #### C A199, FOLSB #### [facility] (DEFAULT) [address] [place] [address] 94451 GGTon 11-23-2022 Gamma glutamyl transferase [Catalytic activity/Vol] 28 U/L Normal 8-64 [facility] Comment on above: Performed By: #### H FP, IRBC, CHM6, GGTB #### [facility] (DEFAULT) [address] [place] [address] 38756 HEMOGLOBIN A1Con 11-23-2022 Glucose [Mass/Vol] 126 mg/dL Normal [facility] Comment on above: Performed By: #### A 1CB #### [facility] (DEFAULT) [address] [address] Hemoglobin A1C HPLC 6.0 % High 4.7-5.6 [facility] Comment on above: Performed By: #### A 1CB #### [facility] (DEFAULT) [address] [place] [address] 80419 HEPATIC FUNCTION PANELon Albumin [Mass/Vol] 4.3 g/dL Normal 3.5-5.0 [facility] Comment on above: Performed By: #### H FP, IRBC, CHM6, GGTB #### [facility] (DEFAULT) [address] [address] ALP [Catalytic activity/Vol] 160 U/L High 32-126 [facility] Comment on above: Performed By: #### H FP, IRBC, CHM6, GGTB #### [facility] (DEFAULT) [address] [place] [address] 02168 ALT [Catalytic activity/Vol] 49 U/L High 9-48 [facility] Comment on above: Performed By: #### H FP, IRBC, CHM6, GGTB #### [facility] (DEFAULT) [address] [place] [address] 61189 AST [Catalytic activity/Vol] 45 U/L High 10-39 [facility] Comment on above: Performed By: #### H FP, IRBC, CHM6, GGTB #### [facility] (DEFAULT) [address] [place] [address] 10637 Bilirubin [Mass/Vol] 0.5 mg/dL Normal <1.5 [facility] Comment on above: Performed By: #### H FP, IRBC, CHM6, GGTB #### [facility] (DEFAULT) [address] [place] [address] 54861 Bilirubin.indirect [Mass/Vol] 0.2 mg/dL Normal <0.3 [facility] Comment on above: Performed By: #### H FP, IRBC, CHM6, GGTB #### [facility] (DEFAULT) [address] [place] [address] 59984 Protein [Mass/Vol] 7.1 g/dL Normal 6.4-8.3 [facility] Comment on above: Performed By: #### H FP, IRBC, CHM6, GGTB #### [facility] (DEFAULT) [address] [place] [address] 13935 IRON/IRON BINDING/TRANSFERRI Non 11-23-2022 Iron [Mass/Vol] 95 ug/dL Normal 40-174 [facility] Comment on above: Performed By: #### H FP, IRBC, CHM6, GGTB #### [facility] (DEFAULT) [address] [place] [address] 47438 Iron Saturation 29 % Normal 20-55 [facility] Comment on above: Performed By: #### H FP, IRBC, CHM6, GGTB #### [facility] (DEFAULT) [address] [place] [address] 84901 Total Iron Binding Capacity 324 mcg/dL Normal 250-425 [facility] Comment on above: Performed By: #### H FP, IRBC, CHM6, GGTB #### [facility] (DEFAULT) [address] [place] [address] 24171 Transferrin [Mass/Vol] 259 mg/dL Normal 200-400 [facility] Comment on above: Performed By: #### H FP, IRBC, CHM6, GGTB #### [facility] (DEFAULT) [address] [place] [address] 06896 PROTIME-INRon 11-23-2022 INR Coag (PPP) [Relative time] 1.2 {INR} High 0.9-1.1 [facility] Comment on above: Performed By: #### P TI #### [facility] (DEFAULT) [address] [place] [address] 19225 PT Coag (PPP) [Time] 15.5 s High 11.9-14.2 [facility] Comment on above: Performed By: #### P TI #### [facility] (DEFAULT) [address] [place] [address] 10581 VITAMIN B12on 11-23-2022 Cobalamin (Vitamin B12) [Mass/Vol] 876 pg/mL Normal 211-911 [facility] Comment on above: Result Comment: Test ing of Methylmalonic Acid and Intrinsic Factor Blocking Antibody are recommended if clinical suspicion for pernicious anemia due to B12 deficiency is high for patients with intermediate B12 levels (211 to 400 pg/mL) to rule out spurious heterophile antibodies. Performed By: #### H EMOGC #### [facility] (DEFAULT) [address] [place] [address] 93662 Consent for Treatmenton 10-23 Consent for Treatment [id number]# 1.00CD:127 Normal [facility] Consultation Noteon 11-11-19 Consultation Note Patient: STRAZIUSO, MASSIMO M Age: 72 years Sex: Female : 1950 Associated Diagnoses: None Author: Gerry Jerry MD Chief Complaint 11/10/2022 9:57 EDT Neck pain History of Present Illness 72-year-old female long history of low back and lower extremity pain. She was under the care of Dr. Tian at [facility]. She recently saw Dr. Vergara who obtained [...] , Daily Nasacort Allergy 24HR , Daily [place]-3 Fish Oil , Daily Probiotic 10 Ultra Strength Restasis ophthalmic 1 drop(s), BID traZODONE 50 mg Tab 50 mg = 1 tab(s), Oral, Once a day (at bedtime) valsartan 320 mg Tab 320 mg = 1 tab(s), Oral, Daily Vitamin D , Daily Zyrtec 10 mg, Daily Problem list: All Problems Diabetes / SNOMED CT 132750719 / Confirmed High blood cholesterol / SNOMED CT 38650181 / Confirmed HTN (hypertension) / SNOMED CT 2523408227 / Confirmed Hypothyroid / SNOMED CT 91480757 / Confirmed Overactive bladder / SNOMED CT 9453566867 / Confirmed Histories Past Medical History: No active or resolved past medical history items have been selected or recorded. Family History: No family history items have been selected or recorded. Procedure history: Electrical stimulation of bladder (171076190) on 08/05/2021 at 70 Years. History of hysterectomy.. ([id number]). Comments: 05/19/2022 12:39 EST - Day Mala EDEN [address] [facility] History of right total knee replacement ([id number]). Comments: 05/19/2022 12:40 EST - Day Mala EDEN [address] [facility] [address] Gabriel Complete repair of rotator cuff ([id number]). Comments: 05/19/2022 12:41 EST - Day Mala EDEN [address] [facility] [address] Gabriel Complete repair of rotator cuff ([id number]). Comments: 05/19/2022 12:42 EST - Day Mala EDEN [address] [place] [address] Gabrile Social History Social & Psychosocial Habits Alcohol 06/16/2022 Risk Assessment: Denies Alcohol Use Substance Abuse 06/16/2022 Risk Assessment: Denies Substance Abuse Tobacco 06/16/2022 Risk Assessment: Denies Tobacco Use . Physical Examination Vital Signs (last 24 hrs) Last Charted Heart Rate Peripheral 68 bpm (NOV 10:57) SBP H 150mmHg (NOV 10:57) DBP 72 mmHg (NOV 10:57) Weight 73 kg (NOV 10:57) BMI 30.39 (NOV 10:57) General: No acute distress. Alert and oriented [...] for acute (more content not included)... Normal [facility] Comment on above: Result Comment: Elec tronically Signed By: Rosalino FOSTER, Gerry Ovalle.br\Date and Time Signed: 11/10/22 11:01 EDT HIPAA Forms Officeon 023 HIPAA Forms Office [id number]#1 .00CD:127 [facility] Legal Correspondence Officeo n 11-10-2022 Legal Correspondence Office [id number]#1 .00CD:127 [facility] Legal Correspondence Office [id number]#1 .00CD:127 [facility] Office/Clinic Note-Physician on 11-10-2022 Office/Clinic Note-Physician [id number]#1 .00CD:127 [facility] Patient Correspondenceon Patient Correspondence [id number]#1 .00CD:127 [facility] Patient Correspondence [id number]#1 .00CD:127 Normal [facility] Patient Correspondence [id number]#1 .00CD:127 Normal [facility] Patient Correspondence [id number]#1 .00CD:127 Normal [facility] Patient Correspondence [id number]#1 .00CD:127 Normal [facility] Patient History Officeon Patient History Office [id number]#1 .00CD:127 Normal [facility] Provider Letteron 11-03-2022 Provider Letter Cooper EllerMD [address] [place] [phone] Re: Massimo Banerjee Date of Visit: 04/21/2022 Dear Cooper Eller, Attached you will find the office visit and/or procedure documentation for Massimo Banerjee. Let me know if you have any questions or concerns. Sincerely, Lisa Yanez RN C C Providers: Result Name Current Result Outside Imaging 11/02/[address] [facility] Progress Noteson 10-29-2022 Solder Sprayer Authentication Interface Message Text Patient was identified by name and date of . Lisa Huff RN Patient at risk for falls:No Falls Risk protocol implemented: No [facility] Progress Noteson 10-28-2022 Solder Sprayer Authentication Interface Message Text DX: Lumbar stenosis rule out cervical myelopathy LV: [id number] Ms Banerjee returns today to review the [...] She will consider her options. Normal [facility] [employer] [facility] MRI Spine Cervical w/o Contr rosette [...] Vergara FINAL REPORT Dictated: 10/22/2022 3:36 pm Michelle FOSTER, Agustín Aldridge Signed (Electronic Signature): 10/22/2022 3:36 pm Signed by: Agustín Martinez MD Transcribed by: KENYA Technologist: GIANNA Technical Comments None Normal [facility] Gastroenterology Office/Clin ic Noteon 2022 Gastroenterology Office/Clinic [...] 12 12.9 PLT 163 198 Liver biopsy 2002 mild periportal chronic inflammation and focal fatty change Imaging MRCP 2002 No cirrhosis 6 mm pancreatic cystic lesion within the uncinate process Renal cyst CT Abd/pelvis 2017 - gallstones - cirrhosis with steatosis Colonoscopy 2017 - Diverticulosis - no colonic polyps Colonoscopy [...] cold f (more content not included)... Normal [facility] Consent for Treatmenton 09-22 Consent for Treatment [id number]#1 .00CD:127 Normal [facility] RAD - MRI Screening Formon 0 10-16-2022 RAD - MRI Screening Form [id number]#1 .00CD:127 Normal [facility] Physician Orderon 10-12-2022 Physician Order [id number]#1 .00CD:127 Normal [facility] Progress Noteson 10-08-2022 Solder Sprayer Authentication Interface Message Text DX: Lumbar stenosis rule out cervical myelopathy LV: FT with Janie Henning PA-C Ms Banerjee returns today with a friend. She actually received a lumbar epidural steroid injection at [facility] which did not affect her symptoms. [...] Significant L4-5 spondylolisthesis but there is a thread twister sagittal of the entire spine which shows [...] she can have it done out at [facility]. She will follow up once that is complete. Normal [facility] [employer] [facility] Progress Noteson 10-06-2022 Solder Sprayer Authentication Interface Message Text Patient was identified by name and date of . Judi Flores Patient at risk for falls:No Falls Risk protocol implemented: No Normal [facility] [employer] [facility] GLYCOHEMOGLOBIN A1Con 2022 ADA RECOMMENDATION SEE BELOW Normal [facility] Comment on above: Result Comment: ADA RECOMMENDED LIMIT 4.0 - 6.0 ADA THERAPEUTIC TARGET < 7.0 ACTION SUGGESTED > 7.0 Performed By: #### A 1C #### [facility] [address] [place] [address] Dr. Fernanda Sanon Glucose [Mass/Vol] 134 mg/dL Normal [facility] Comment on above: Performed By: #### A 1C #### [facility] [address] [address] [address] Fernanda Sanon HbA1c (Bld) [Mass fraction] 6.3 % Critically high 4.5-6.2 [facility] Comment on above: Performed By: #### A 1C #### [facility] [address] [address] [address] Fernanda Sanon POINT OF CARE GLUCOSEon 06-24 Glucose [Mass/Vol] 138 mg/dL Critically high 74-106 [facility] Comment on above: Performed By: #### P OCGLUC #### [facility] [address] [place] [address] Dr. Fernanda Sanon Coding Summary.on 06-23-2022 Coding Summary. CD:[id number] G h0bWw+PGhlYWQ+LR1EPOS hF35huBKmvK3DG3iNWF6I KLNBGMXNUI0AGT8idRC3H BrfL3LkrpQs BlhorARuUY56JVe2JAM1i DvjVGkzvE4fkBUqM6n4Fx ZtLT30fM97TKvqYLZoJdH 3LjZpbjsgbWFy D1whWkRjuOTdYyt+PHRhY mxlIHdpZHRoPScxMDAlJy OnxUpnHN7rYu7hZGZaFVP vbGxhcHNlOiBj y1vcXWYkHYliSO6qwEfnE 9FfmLI7DAGsr7n4Fl31zX I+VUVtMZA0kIqbRZhmk02 4LuBpe9azJDF4 uVFcMQzgKID9L56bq2R9B PRkMJCbLTF5vLB9jN7jeH dfbplqT6ZcwYRbHnQ6DAS 5kYDxrI4wgUrz kxtzrX3gWok+D02FCR6GF IRPRX4OOqi5F5TdOcbfpW I+BI65FQApWM34pZHstSO wb0jzzIo8LxNj UVXqTDA8mOibDFxqc8OaW NLrI35mpTRmd5C6WDZmbD qnpFBbHiLlwGS0jY1tUDl exjkwp6fkgofm Adbfo6hbyl86vN29L97nS JnwZTTzAKA8YXAnGWUlmJ lthq4koS3uIg3+XIznn8t bs3innDn4JwRw TKDltrZaeEaxNHT6o4HuR h62L8MqwQvtg0XzNqn2ew 68iCGxo6W3pEH2ANgfRDU cuF2pYWmnIlN7 ADNtJsXajC54iDVlKRrdB b6yoIoocEtvVM0qDNHyvf vgHUTaaA2yQUAglAFooSf uXN1iNGOwdctu k492KlDuJUI4ZRLohBVqP 3BgaE4uCkHlJRTxJDByK9 GnzIFnIVztO777NXytFdZ 0YAZtgvOhF2Kw SXCmrAwzVoC4h9Z8Cs0Wn 9HaoaixEKS4JDhmLYJoTx RzVgGyIsE6L8IkSfe6GSO zgDhvSH2yM0Tg XEAtbnhelfxslER1VKIdV WBfiQ86aHJcQHycLh7ua0 T5z365XNSjKSJitI78Zo4 udDogMTBwdCBU mG3bdfmfp8hhducpHlUsE LCiLZe3OCc5NEYirHfaQu OcOJF4ZfX4JUY4aVPnfJ7 gnRkdqbfqyI7z Oyc+K52paW8gVOW7JVJ2n ainJPMnvrJxDF02PD14I1 RyPjwvdGFibGU+PGRpdiB ztWurUJ5cYhGd r0uzs8UdEZiqT2JiOIDxI KxmGmo7NMJzVIV1cHZ4qT 1yADXmOGjzo6T8vWK2N4T wlsJtyx4be9oh IFPsXMeyO99xlNQai1A3O TQycUO3LCNobQhlCsUlqN 93Oyc+MWLfjXwsw4GzTjr nu3reu7witDi0 UxCxVKNopkGmgQaeXNQ9w 4VfDu24J59jFCjxOSPwQD ChCOIcOYGnhQkrzp3peO2 wIi8+PGNvbCB3 fRG0xO2pYOAkNpA4GHtmI 482ZpLgvFOlAzfiz2xzn6 cezWr0JjCtCLSnirGecOu rNVP8n1BxIs81 R90ePZblXKTzGGGoXKQqI KVzhUkjwj5cgC4hFu5+PC 9in4mrvw29hE76pUK+PHR pMWS3bVisPYuw RRQvwG5dODkcYhA4IJNgP yLwaQ58zVBoTUnkCq9coU mdsZdqKG5eWAAjygcjb77 1PxAaa0oaGWJu oPLkTSqeWSK1K60fa5T1O RGdYDOmBYO8dBU1oO6ptJ lnbjogbGVmdDsgdmVydGl eGTcpOEvjF248 IHRvcDsnPlBhdGllbnQgT aDoNCm7J4MfZqf2MXBqoG yvKL0snLElZObsVu0vhOg ufLvbOB7eHBNb tkkul250BuImz9vlAVUjp AApINodAPP6S49ip9A9SJ RjPLAtRPQ9kWX7rU4ofBa nbjogbGVmdDsg muPiyCrgWCvlAHkjC076Z HRvcDsnPkJpcnRoIERhdG I6YV02WE18oBKbq3N7rKM 5V2KgBEGnvyao qnlniEZ4KZWtFHFbcR75C k8poTgfKy6iMYJfOGK6DA BslWSnE9YghE8iNuVkLWG xTEFxC1FwiZDe BDqtW659VBzbXmI2ZMImq cGtW8EiPFThlVmjKuO4g6 Q6Mp4UH6H2AX41DJ58eJD dy5E8tEW6O3Ej VYLzizoeehxsyYP1QQVeL BHmbZ51No5fdVffWb1cLP RiSOF3IBZoxEJwK5RbuO2 yOiAjMDAwMDAw T8PxpDPtXRcbV676KBnkH oR3VTLqhsGyI6UkIURmcT pxXpM8u4Z9Oq3EFPn7LZ2 2OA71oPXee2S9 uVN1S4GeQNMxbmvczsufb PE1OULjISTmdJ47Sz9enM bfTl1uZCKfSXS4HLTzwWP zG0XxaZ2oUaUa TTDhUFFmC9RjtUYyZLdpQ 015SYhzVlG7CKWmjwOvV6 KfNPUarBfbLkJ8e2M0Hb6 SBOMmWD58BBP3 zVC5VI13AP53M0ZlAglfw GFibGU+PHRhYmxlIHdpZH RoPScxMDAlJyBzdHlsZT0 sGu9jEIHjIRZq dQloeXBiCpHqe1efCXHnO TqdYV3wzOheY1TqkVV4XQ Xue1b3Zy28L74kE6KfnVC +KDNayBX6pXG8 fU2zMdZiJxM0YBwoQ908P mUvoQVvHvydo7uvx6mbgI e4RnO0TCUoubCgiVixIHW 9v4KaLv71D17c IHdpZHRoPSIxNSUiIHZhb Deiup7joK0uLv4+PGNvbC L3uHA2iH6eAtKxKoR1XTz qN820GbFidQVk Fqcyd6ttq7qruTu6NfDeT CYotiDlhSwoLCP4v8SwGx 58V4ZpmOnhj1IgEqu4wd1 1wLKaf3L8cLK8 U1MzWPKwmpigiVQwrOegC Z2nQDWhggwxKGLwjP1qQQ IcB5f7ToAuTwI3YShtJ7G cgoC6EMSvgSYf SVzuNLU5A16mb7A2CCSpP SStVEL0qFV4iL6wyTxlwq ogbGVmdDsgdmVydGljYWw hXUbxD364LEBq wDsyWYHuoX3mWWYbtGIex TomHH8uTTMutacnMyDGRp MdEIHHKbhjOU0QNBNOLO1 9A2RmFaw1MFVo fEfjHD4wpYUzHWlrVm1sh BlwfKemDQ2gHHSzbpuzGJ ZmdN5bIWCtwPUrfOahVT8 zHOGakxlrz440 QxGxJFY2BNOmrGWcC3Wdn R5lQdYuCQJeJBTzI2EzbA TfZNpxS107MKmgPyG5FRP etgVnG4DfKHFf gBziDoE0y1Z2Nu2xGN6uV L9xJOKjHV09PS75cTSmi2 L5pDQ4E4SbZMNjndclkhp rrYG6KJToMUBu aT78kOJvNFhiNb4sa5Q4n 547BVSwMOJopB90Sl8oxH lyIDNvzGOKxB6kmwxge2w vcjogIzAwMDAw RGn6ZBg8JUOohSblPoMcA IG5ZbI7FVW6fACoeF6vpF ojzrcdeB0oDay+NzIgWWV eatS2P5UdDob3 GZInmDvaCV7mxIZuTOpeY m5riHhamQbnYY1xVHPotk nvZMDjdM4vYLUxcOEtdBb nWT2xMXZuyswt i780AvWqOBQ0WAFvjXYxO 9VtmP5gQkMmJBNcZAUeM4 QyrUYxZCciC496FXaoQxC 4UIGghfUeI4Wj HKRywLdjEsH7m9E0Yk4CE L6ucFJ8W6UwAde3DKDmiU ycEE0xnJZqKFtwKx7blTt ptKxlBO7jOQXp qgtuOPYuyI0jBAHpdZNic RyvCV2jHJQmyhelz084Cj ZrDJI6KJXtdMWhN9FajY1 yOiAjMDAwMDAw F3RriTHiWRafM706VHmjE uO6RSTqxtZrY3DmJXRseV tkQiM5o1W0We6RqGQkOXA wWI29QU91PL55 T0DmJevbiQGevPM+PHRhY mxlIHdpZHRoPScxMDAlJy AxpHviLH4lUe8iFENxLFK vbGxhcHNlOiBj x9sqVTXgXOirOH2zuJvrG 7LllFC7FQKeu0p3Es56S2 3mN8EvuMV+HPIcqAM6dWO 7kM7cDoBlTuB0 FXvpJ327GbDwkUXoLclsi 9rvh0grqBy6FmMjZAEhdr MvvCbaEXN3z7ScDc50T97 sIHdpZHRoPSIy SAUsDYGopNknla4yiF9lB i8+JGImiAH5tUD7zS8eBr CeDxU7XPmvP269FmVesNP tIyiwC09kQ6Ox dXA+XTHvQyw5DDDnrGbjC P8nrJJaUTrdGr3rEPI2Ek WxToVzPMtkS2RnZDQbuxp achmduYO4MLTp UCRgqQ55Bw1lmEgxVv1cR IFjOUG9JTIhoQMnX5GqoU 9tHiUrDUKfNHKuA9SirVG oRBfyM481LJcw BoL7BZEidzSiU8OvJEPtw JwcNvX0d9L0Ve2MbIzhpG MgYL0aPmZdSPs4F0XtYpw 9JQNrcRjwNP7p gFInDIapKy7fnCdiiPveN M2oUXJljetbx102IjCmr7 gsFHZpoGXwSOldPUZ9W70 tc1O7EXEtPFNg WXW1hYD7gC9auWfjvusum GVmdDsgdmVydGljYWwtYW ahA625VFToiQlcXaQJFix 8R8DyEas5DHSp kEuwSD8vwGWcDOisWl2nv BbphXnsZW5tLNOpdmvso2 27ClJdl5uvVHMloMUzQCa tNJW2D04kk5N1 DERqWYAtOSE1pAY3lN7ok GlnbjogbGVmdDsgdmVydG ffGPllQHgoE728AYYozFj aVk7HIqk2M4St Vsf1YAAymCflCX5jfCZkR OrvOl4crNeduXqxRW5uRN Aybgqln494LwDpz5cuULW wcHQgVGltZXM7 O58kq3E4QNNeOEAcCEE7w JR8rR5umVfmiokoxPLunC mrqjIqbKrxBFfuMWvjN83 6IHRvcDsnPlBh eWVyOjwvdGQ+WI04qd31B 6QwZinsRvl5OUHwJMH1rS H0lF8xLDOfIEeae6O9gOJ 6K2LoheUknw5r b2xs (more content not included)... Normal [facility] Consent for Treatmenton 05-25 Consent for Treatment [id number]# 1.00CD:127 Normal [facility] Consultation Noteon 06-16-19 23 Consultation Note Patient: MASSIMO BANERJEE Age: 71 [...] 0 Nasacort Allergy 24HR: Daily, Refill(s) 0 [place]-3 Fish Oil: Daily, Refills(s) 0 Vitamin D: [...] All Problems Overactive bladder / SNOMED CT 6280263794 / Confirmed Diabetes / SNOMED CT 379478426 / Confirmed HTN (hypertension) / SNOMED CT 2898581270 / Confirmed Hypothyroid / SNOMED CT 64430012 / Confirmed High blood cholesterol / SNOMED CT 76467580 / Confirmed Objective Vital Signs 06/16/2022 13:42 [...] hip flexion 5 -/5 Integumentary: Warm, Dry, [place]. Neurologic: Alert, Oriented. Psychiatric: Cooperative, Appropriate mood [...] foraminal pito (more content not included)... Normal [facility] Comment on above: Result Comment: Elec tronically Signed By: Janie Henning PA-C\.br\Date and Time Signed: 06/16/22 14:02 EST\.br\Electronically Co-Signed By: Geri Vergara MD\.br\Date and Time Co-Signed: 06/21/22 21:27 EST Office/Clinic Note-Physician on 06-16-2022 Office/Clinic Note-Physician [id number]#1 .00CD:127 Normal [facility] Coding Summary.on 06-15-2022 Coding Summary. CD:[id number]:[id number] G h0bWw+PGhlYWQ+OP6TWCR zQ21ecOWfdB8QE9sYHX0M YJICZJYXHS2KZC2ruKQ0W FqwR9QzdvWg FbympGCaBC69SSj9VMJ8i UwwADnmeM4emLWbY0t4Gu TbDM90kG26PSjgHCMiOuI 3LjZpbjsgbWFy P6ypXgQxqDUzRor+PHRhY mxlIHdpZHRoPScxMDAlJy LioMtlOV5tPz3sYYLwOBA vbGxhcHNlOiBj k4kwZNTaRBprYH0jwAudJ 7StqCL8NYJkb1r9Ke71tE I+RFItWOD5eSpbRSovq62 6JxFrt4skBYX6 nOYzZYxkDCZ5Y52ew8W4N HAgOFFeSYC0mAS0mN6boM inlcqtS6HcqRMqGtP4PGQ 9sLWjoV4zhUud hrfttR0hAoi+E39OKV0QP LDODY9LLzz7H0DxYarfcU I+JJ68AZJhOP23jUWjaQN ld3igpId3ZpWq PLUaUVQ9vMgfZCfgc6XhC HKgJ88uyUCke1U9GSZdnR mrmMZwZmTywIX5yN5bLFf vpqjbl8ikjsio Oqgpf0dhky66gD62X63jO RoxLUAqMQF5JSTiVAOhqK nutm1cxE2vLv9+HLgsf9x fb2eoyDr0JsZs ECXfojZwhBugKHZ5o5WgR s92O7FfyJqbf8JnUsh5bz 13yRQex6E1rMB8KGrbDUO hjE0wZKaeCiQ4 WDRaEiJjeJ85wTGdLKabG u6beUaooAdrQU1yMBQvqi plBGNqfV6sUAQcvXEjzNv kPX9pCFUkhtla e421UnXeFMD7XWFfqRSlK 8XegJ5eMfGkBPDfGBRwM7 VigLSkHHopO622IBqtAqM 0ICLiurMmP5Xq KLEjqSgqQvC6q8B2Bh3Qz 7TwxhbwJHE8VKvzZITaSe DvJxGyJeQ0D2SjWlu3AET pcOnuQV1lE5Zb QMWzxbozkbevsHZ7VMNyG UOfkX32bMFbZXonHa1ix0 N7i543EHGaYRCvuV65Ix4 udDogMTBwdCBU uR4gpppgd2pbjlsiHsDiR MDpNZm8XUb0DNJohQnyOy XkDUS5VwU5TYJ7fOOqgJ0 hsOvntqgsuR9v Oyc+I91idB3zCMX3SYV9g mpdMSSdrvDfQL20IH89B7 RyPjwvdGFibGU+PGRpdiB vsAzpLS8xWlVv q6xiy0VyZBwgQ5AbFCVzM QorDvp6TMQuKMK7jVZ5hR 1vKEXaOLuwh4Q2tJI4H0Y jzpKdub9hy0vi JRNgXDozR66hpIPvp6L0O CLezDZ4TKPpeKbkUnSgyO 93Oyc+ZJXpyRhqp3VpCgs bz2ome7vznJc9 BrImIKDlcxDdqNcdGZZ1e 8LgVz84M87iELanKUTfEQ QmIJMqZFBxeDzpor9rzN7 wIi8+PGNvbCB3 bMP5mL1rBBHlMvZ5DIehI 151FtTiwWAoQiafa1rzf9 skbCf0LsIwTFQinaHcaHy eQAA1f8CrEj50 M25nOKflVJHlNZIfWYIqX OFqhNxrlq3bxF4wNc9+PC 2ak7yqhr78yZ05mBQ+PHR rPRS8zRrzOFlb SGBebP6uOAsfZcU0XPMtB aYxyF44iEKkZLfuKl3ddB dmwSzsSK5jEKUhlqesx21 2GaWsj6ftMNAk bMSkRTouIUD1M95vd2A0K WBgWEHqCWZ3gCO4lN5zmP lnbjogbGVmdDsgdmVydGl dZVzxYKwmA295 IHRvcDsnPlBhdGllbnQgT kNwKAw7A7WjUdh1NZOptR kyXG4xoCFbUDibRm3ygXl hqLwwNU2wIPPo kkidf364CkLcg5mbFCHhj KPwFUvzNMP0F98ly9H3DF DaMIWrCGT9kQW8cJ2gnCs nbjogbGVmdDsg dcTytPrbBRflSUxjU175G HRvcDsnPkJpcnRoIERhdG K3JW82HL19zCGem6V5jZF 6W4EeHIFazpfn onvoaNP9RMLqBIWjcA08Q y1jeBuhMm3yLDWeBBS9OS BksDCbH5KgzN9fFpXxSLY aCXXeN6TugMYa DFgkM825FHwtRqQ5STXho bNiB6OzFZIceAwmHoK8h1 A4Yp1MG5U9ES16UL93jWM ot8J8eKL8D7Ra LGWxovtmebbdeIF2PVCbR HVstC71Wg3shPeqVb4vNM CsFCT0RKXalYYhX0OmnX1 yOiAjMDAwMDAw M2SbxDYuBMhsD543HBosY bF8HEMpbnXoH6YqNSMygM fpGvI8z6W7Xl0MQYr6NC4 6KB00gCAsh8K1 oWW4J6JvXMMbsephgzrca ZT4KEBhPGZfpH17Nv9yfZ naVb1uTMFkVME5KJNruUK mW2SwbM3kAuXv UITpBYKiI4WxkKOiWCpmF 856ZKwqNrY5CGZsnaKcU7 YcDPNycMgyHjW1o0Q5Ug3 GFUMuCH68HVA9 nEM9NY34GZ67D8DnUezmj GFibGU+PHRhYmxlIHdpZH RoPScxMDAlJyBzdHlsZT0 xQz8pJMJeWDTy jMgkkFJxUiMtr8pxTGIyJ SepDK2ttDkdB7KyjSO5FS Fdx1w1Ir38T74jD9ZctRR +ZYXvpTD1mXO4 jZ5oTwOdFzN6XXccB215R kWfmVBbHrwhf7ihx6nwrV s2MpN4NMHcwyCzlPnePZN 8t8QzNw50C79x IHdpZHRoPSIxNSUiIHZhb Zovid6abJ4aMi8+PGNvbC I2pWO8tO0vPuWrThV0ANs lH962YnPndGJj Ofmne7qim2fobWn4LnDbM IDtjuCipGslEUH4s5ExYj 28M1EcdSosc9CrVsq7sc4 7jYBrr5S6oCI6 C3IfTHJmldodaVFkvEnvP M6qLAVecburFSNbdF6vBW DvW4e8WbCdGoP3OCjcI0W febV8QEZfuRQp NDewXOF4S08pp1I3HJIrN JIcZLD2tOU5hG8njLezdb ogbGVmdDsgdmVydGljYWw mITxzI120LXYl wMujLYZgpW1pYQTvfTKld CkhEZ4vMQSkvqnpWnZPYs MuBWXPOzpmGB2KFXHWRN2 3Z8OwRzt3MTIv sHalGY2suAAkCNpsSk1wp VmirGvpNR5lNNNtqpvzWL IpbP9zIIIhrBRqmFntJF5 lFFDhzwucq179 YzQzZFP4BTZqaLKgL5Cma P6kHyZyVPGoDZBzX3DsjL UdJRbgT972VWppHmJ9RDU txjTcY0CsMXBs oRadNoI0u4D9Lh4bAV7aG X6aNOArLT33YM06vEUqn9 V1qRO9P4QrOIUfhbgagri hyAE9FSAdNQPb pG19cOHlZTqaTf3ct2Z3n 656OGDdHEKytJ61Jf6hqB wuNLWvcYSRsT8mqxvsi5d vcjogIzAwMDAw HYd5XZu0QNBoyQhhBjBnM QC1OwN6VSI0iUOxsV3voS lptkbqlA1pEov+NzIgWWV pkwN4G6EpSow4 WLQhiLfqJN7bqAJwYTtuM q7ylUvabGgiYP7yDUNrxe wcPEWyrS7tDLZvrHHikYl jHE0hTHVdfnrz e979EfWsBZC1UXOhmBTeI 5FscZ5kTyDdXNRsLDAtJ7 AmrELoIGjkC403SIioEdR 6ZDByflHbG7Sj BRAgtCrjHhE9a8M5Pt0YY W6qlCR4S5SyAza7MJTubE syEK9ebTImWNkpQg4nyKm qeOwySY6qHDEe miszHAZsdC7tNQBqnHSiq BedEB0hZIQjbpsqm175Ev BcZGF4ZUNgbLWrB7LwcJ3 yOiAjMDAwMDAw L0CrdDRzKLvgG031WYouY yW1NJIybbMjG1UeGUAipZ lnMmC6n6A0Xe7BrZQvAMD mTI89WR75JD65 U5VzVlfxcEJvhIG+PHRhY mxlIHdpZHRoPScxMDAlJy WtlUqzMZ4hSe7rNAZgCJB vbGxhcHNlOiBj f9qiZJGkGBiiYN8dyJjuS 6TyjWH7GXAol0y1Xg28S9 5aZ7BieCG+XUPlyMO6oOY 9uC1kTgXaJuI6 VYavQ518GlUdmHXcXtbtp 1duh6izpZw7UxGvRYXmku DesRlyBCA2q0ZkGw93O60 sIHdpZHRoPSIy VBSwRQSnmYxvix6foQ1hU i8+EEYfnZG9kVX6iG1yUl SiCyV8WRzeK118QeJuwGK aJxpyK83eR5Iv dXA+XJYgZxp3SSLstPqrI L5jdBXbDRelRv1pJGZ4Np KxRoRvUUotV7IvBXDdssr jvsfltML6QBKp UHXfiO21Fc8tmLnsMb8uJ EWfZKT1JPPvqWMcG2PnuC 6rNsDcGSFwUMWmF6MeyUE fTQqsM426TKmw UuD8PXFlepJpD0TyIZOjr WutXlS4t9C2Vc6HfWkceX OfAX1gInKzXWd2E2RpZfz 6LHOgdNeuZQ9f dGHkEWaqEz7hvTaitYnmS H2mXPZpisosw339QhVto8 hoWPItlCFqBKjnNXM0H16 qy6C6OSQfUFLc JXV8xIR2cQ7ptEzybrhpr GVmdDsgdmVydGljYWwtYW diQ143SPJcvAjdZuSYSzs 4B4WqToc2LYCa uRaiQQ5cyMLcZXmxMj1sb JntjMdjNN0sNXKwrglxy0 43ItLyu8kzLUQsoDKrFEg qMOL4V34ut1A2 ZCDqOSYuABI8dCN0rK1qa GlnbjogbGVmdDsgdmVydG exFUqrTTzuE225ZADwbSd aEc3XHsc6Y3Wi Hbq0PBGzpMplWI8cyROpG SfrIa7amAzgzCoyQO4tNN Ocrgltu433IqNsl1tjBHD wcHQgVGltZXM7 P62yp1A6WZFhTJRcBTF2k TU6sY5jyCnpwsexlROgxC prqnZyrBboURcaLAuhN74 6IHRvcDsnPlBh eWVyOjwvdGQ+JD18ma72H 5KsYgltYaj6PPPuNZW7fV C3vL0zBCFgMScmm6M7uZA 1P0MnhbTbhc9x b2xs (more content not included)... Normal [facility] MRI Spine Lumbar w/o Contras ton 06-11-2022 [...] Signed by: Geri Muro MD Transcribed by: KENYA Technologist: ADRIEL Technical Comments None [facility] Consent for Treatmenton 05-24 Consent for Treatment [id number]#1 .00CD:127 Normal [facility] RAD - MISCon 06-09-2022 RAD - MISC [id number]#1 .00CD:127 [facility] RAD - MRI Screening Formon 0 06-09-2022 RAD - MRI Screening Form [id number]# 1.00CD:127 [facility] Office/Clinic Note-Nurseon 0 06-04-2022 Office/Clinic Note-Nurse [id number]#1 .00CD:127 Normal [facility] Physician Orderon 06-04-2022 Physician Order [id number]#1 .00CD:127 [facility] Physician Order [id number]#1 .00CD:127 [facility] Coding Summary.on 05-21-2022 Coding Summary. CD:[id number] G h0bWw+PGhlYWQ+EW8LUOG jV24xqNSlaR4EH8zBWV4S QYLFTYJTWP1XEA5ymJZ7V RckM3HfveKk EhbtsPFxDD31SQg1TNW3u EhnKZdpxQ6xgVUdX6k3Uw OkKN77bE74ARprGXWuJgM 3LjZpbjsgbWFy K0vdLyTciPHnHus+PHRhY mxlIHdpZHRoPScxMDAlJy XloWjnVJ4rRa3gAUHoNLD vbGxhcHNlOiBj l8fmYLAzXUrjLN0wmTzkA 6LkhRR6RVZnh8p2Sb58wA I+TODjPUL2uDzyVErfp59 8PgXmy4uhRGS1 aPJnNUdhJZT0Y27dh4H2U ACdOKEwTQJ9iZZ3fN8ocJ tlyqmuI9MrgATkUqA9FNR 3ySDkzK6rsQqp rcsswD0xFcg+G62JUT8LN VEXJX9DJyk0J7PoWtcgaZ I+QX45GSMiVX30dTHsmDM mm9rrhAh0WvSj BAPgIHN3bNuuNHoif5VyD KAlE84okIJfu6U6FWDdtV jozREhBwPjuYE2pU0bZMr knmyfx3vubkhk Fhwqy4celp20iY82I06wO WhzJFRtPMO0KGLaRJTbsX ibls7exN3gBu1+SMmft9x rs7qklKt3EtBw XMPwstJtxSphNIU2o8VmN s65V2WqlHcev5VnYtx6yw 92aXZof5M6dXL2JAadFQR czC2vBLvhMuC5 KODvQxXpzW45dZJbAUdbV i8zqKnirByjDH3ePLYcuj qtHESaoB7mXVBgjSQniBd kOS8kYYVnsfbi j251YdLbTPX8PNDezQOkR 0DjxC5pXlXiMMOhVQSoT1 WddQAuJTnpM215TJzwChH 8AQXelkSxZ0Sv GJZerVucFoC9y5W3Bt1Ph 2PdsinyOVR4SIdxXCYoQq I5KyZvNsP6K2QaHwr1VGW umEkgYW5oE0Ad MCCvsudloegpuVA4ZVFpG NKlgZ45zNXyAUqoNd3rk3 O6d153JZIyKKVvwW19Ml5 udDogMTBwdCBU nG1zqiqtq6lkkrodMvJuE XPxOGw3HEz4EPOraYgxLc XvMVW5NpA4OOY7uGJhcO4 hyJynlnpamQ6x Oyc+U34ueB9hNKO7JXI7h wgsWTXqvrAdWZ20GA25U7 RyPjwvdGFibGU+PGRpdiB djMgrCU3zLrOt z5oug2RtEQliC6ElZORaO DwuGxy0REObKBQ6kGO2uH 3bDSGbKTgfu8N5mQJ7H0M wryEqtd4rv2zk QNEeRHmeX15kfKWbq7I1R DYbcVF7KVCmzTjeMiDuqI 93Oyc+NRRwuNwrl6JxZpr oi2dcc7ywrYd3 LyPkHCKmkrLzdAojBEL2s 2JyPv16Z60zKKfaREGhHX GlMOFqYMHazRoaeg4vvR7 wIi8+PGNvbCB3 bNC0wP4jJIYaUqN2SVioU 354QcHylHOjRmwtl7wfu4 omvOl6EdNbYZRgplKxzUh sHIJ0j0ZxTq25 E29sJFvhHFViMHQbZIHlB NMzjPvzdg5qtD6vZc8+PC 9ha3ttnr49aR82iWX+PHR wPML5aLwnJMbm WQVqyI9pVVkaLrU6AVTzL aEwiY63qFTwMEomIr4pxI emuIjbQO4rTHXhfueuw80 9JkKwp1iyEPKn fPSlTLtyYIY1R71fh4Q7O MZtDCHxFLW0cFI5aK1djA lnbjogbGVmdDsgdmVydGl tMGeoUVoaN308 IHRvcDsnPlBhdGllbnQgT qNvCNv3T2DnCgp6WJOhqB hiLB3uwGMwNIcbQj9ynBv dhJtaPA0kDTWg wdrrf451OcRkh4frJDEpg NOmJYfrARG0E90br7M1GI YbXDIxKXM4yKG0rR6fpVa nbjogbGVmdDsg lfFhrGspLBjqISiqA705Y HRvcDsnPkJpcnRoIERhdG C3VW18EH86dLTom2G5jYZ 8S7UePNRjvthx lzyduJM2AZVyQVJhvI03W u3exEdhOo5hZDYfQFA0TK PyfQYxX5DbiC8tGgEhKZJ fFFZfM9MibVYx RIchS847KTopEgB6FESae mHvS6WnCZJmgPoaFeN9y7 R2Vd0PD5Q0IN12FC93rAY lx4Y4nVE7Z4Yo YOWxuhsmgebluCY3WMPcO VGhhM06Qt8loCoqJi9mWI YlLSK4HTUelTVoK5ElwQ5 yOiAjMDAwMDAw A7OnfKRzXQidV421HDibA kD2DIFqicGrB7YdODRtpB lwYyU7d8O5Zq6ARLt4TR3 6SN25aKTyf6P2 eFN3T3SuRFAsvudptsaee PF7HZSbYZXceB97Zr4idS gaPy0xDUWqAQW9AGSucHD cU0OhfZ2zTuCy NDCjTQOtI2DolDIvYInhC 232ZKjsFiY2UUOawxIvM1 MwPEWauSwzRtP6h1V2Pf5 BBFJkOJ88HYT3 eCM6CK23QD96L1FzNdvgx GFibGU+PHRhYmxlIHdpZH RoPScxMDAlJyBzdHlsZT0 vMy8vYIIxYEOv eSppkVDjPfZdy2suCENwO ZulLR6zvWktJ3KzvDM8RE Xus9c6Go04D49lH9QuyAF +LAOtwOW2vSE7 vD6xHrBlYrX8NEviM782E aNyeUUhYobsa4tdo5iiaP s9QdN0IPJwrhMyyTndUGV 5q3MlZk69P37a IHdpZHRoPSIxNSUiIHZhb Zbeuj6nbZ1hOp5+PGNvbC X3zXQ2yC7hIfSjXyY9DBu hL579OtCcjSNv Yzmze1ntz9vrhGa9MkOjP JWnfjCmrWduPQA9j7DpRf 96O4BeiQxug5ZiGfn7cq7 7vLYjm4X7xKW3 N1LdJMFnanthaITvfGmnW I2rYZJpwillIVOexS2lFJ HwS5w5MwKgKjW1DMafH8E fldF7EMUakFYm XIhuBUM0G82we6D8LYCtK RVkKMP1uNX3lU8grDyxia ogbGVmdDsgdmVydGljYWw uTLqtC309XUTx fRzxYEXymZ1iJRAfcOJcp AlwZO2uMCLlskyjEcZMFa CmTRKQOwgnOH8IPCRISD5 7D7MrMqb5IFQi aQqrXQ8hqTAyLOqcSq8nx VleaMplTW9vECYbdfftSN DfxF2cLIHvfYVltSijRU1 nADJlqjbwa537 BtTtPBJ7WYArpDBdW0Agh F0dKsMgTPYtNAZzJ5XpyA RjDPpdN155YQjmLkQ0EVB aakMtF1YjITMk lCnfTpU6q6G8Cn7kRL1iS N9iZBJpGB33BR67nNBwu0 X0zQZ8J8QwRFTluhitmln kyIK5ERTrHJEx rB94iPHcNIxtNf4mc1H3y 529CFXeKBWwuK40Fn4bjN oqWSXlyEFZoD5ycgyzi7h vcjogIzAwMDAw LKm4LCf5JHFwvBzfKwLdM OE2FcH1VZW5fAGtzQ8vrT nuzsbfqM6tEjx+NzIgWWV edbM6H7EyJxj9 WZXcbNxjFP2sxMSvUBwjC a3ckHbvoFwbNX4mCFAxuq teBQNdbG3aYWKdmLTsuCw eCA4eLRBcnfcj a295UoCbUMP9BCKngCNlR 7YpcG7rZsItHKLhUQZwC2 FkwFKiBZiwV325YDxnJdY 9ENYavaSfI7Tz HSPfgHoiQmW6l5E0Bl8FK N0ehUM6X2IeEvk2KHWcqA cxYG0buTWeEVkcVh8deGf dsAxyFI7bWXDu kluhLWHeuW3kGACvmYKco KchFR4mDZXrdcygw045Nf LwHHW0RHWvjORmV2LsjZ8 yOiAjMDAwMDAw N3GlySQpSUjnQ918RMxxA rH5SDGjptEfE6BwURAajY abEzZ4g4L8Ty5KqFEwIZP xSM66ON95AW13 C0ChLtfcdRZnxNZ+PHRhY mxlIHdpZHRoPScxMDAlJy KejRrhOW4tQl8kJXBdMQW vbGxhcHNlOiBj i1jfGRJgPSmfJX0rkBoaJ 4QezLF6GFAir6q1Nz61P1 9uY0VmuPP+OHPywVO6cDR 7hI3fHoBySyO1 MNeeU464MfJnzQIsPhglq 0ucn8rucEp5TjAaTPQkhp UmvFisGBX9c4InWp67T10 sIHdpZHRoPSIy KQLmRGQbsEmbvw7rlD2iW i8+TZXvpWQ3xXX1fC7vRr EdFgA9ICnvH567CtCrzLJ vAobqF03gX8Fv dXA+RXWqTxi1FVZyjAkfA H1xnKOkQZjfUd9mSTR7Qb FaBfAmJPiqL5HoJYWgetm yddazhQS3VHIa GUGdsK55Lh8gqJjyUi6qK WPlYEY3LUBecUChC3AizG 8yNxPqSKTdDHWgX6IjtVA jLTloR474IAqb BhX2KIFmzwAnG7AtRVMsw SmpGfC3q4Q5Ce0IvBfhbV QfEQ3aMdDsJEf5H5KqJfz 7QRXcvFrcMD0l zWBgZAobIo4tbXdamLxcX K9rUKUufjmfl525NnVkn5 niDKGwuTXySCzxUPG6T11 jt9T0IHRtKVSv FKR6kFX2fF6lzEmlejpyr GVmdDsgdmVydGljYWwtYW oqD491WMCvaXneHkDAUwm 3J4OaXkd5AWGf zQkhRH7pgNUjQAnoQm1fo WumzJkpNQ9pTFLoouawx1 89BfYus6evXJTkyFGtGAu cTZR2V95lc7F7 CPSuEHScWDG0tIQ6sJ0ej GlnbjogbGVmdDsgdmVydG yzJYqgSKxdW460NOFalSi xJd5UCks8W3Gd Xgx3MUCrlWkzGY5irKCmL NorYb5idRxlgLwaMB3fOK Ooyenno197OfAhy9wrAKQ wcHQgVGltZXM7 P70qy8I9MWWqKFJnDHE3p ZH2iE0tqBupbrnqpKZrrP gajqJseWvwUWonAWyaS70 6IHRvcDsnPlBh eWVyOjwvdGQ+HO26ty91S 2LsAqfqYzj1CHZpFKT7yX C2rL3gIEEsPNnob6M6eXW 7Q0NtfgGazh4o b2xs (more content not included)... Normal [facility] Consent for Treatmenton 12-2 Consent for Treatment [id number]# 1.00CD:127 Normal [facility] HIPAA Forms Officeon 022 HIPAA Forms Office [id number]#1 .00CD:127 Normal [facility] Legal Correspondence Officeo n 05-19-2022 Legal Correspondence Office [id number]#1 .00CD:127 Normal [facility] Office/Clinic Note-Physician on 05-19-2022 Office/Clinic Note-Physician [id number]#1 .00CD:127 Normal [facility] Patient History Officeon Patient History Office [id number]#1 .00CD:127 Normal [facility] Outside Records Officeon Outside Records Office [id number]# 1.00CD:127 Normal [facility] Radiology Outside Office Hebrew Cantor yon 05-12-2022 Radiology Outside Office Copy [id number]# 1.00CD:127 Normal [facility] Radiology Outside Office Copy [id number]# 1.00CD:127 Normal [facility] Referrals Officeon 2 Referrals Office [id number]# 1.00CD:127 Normal [facility] CT LSPINE WO CONon 2 CT LSPINE [...] by: WILVER HANNAH Date: 2022-05-04 08:26 Normal [facility] CT PELVIS WO CONon 2 CT [...] WILVER HANNAH Date: 2022-05-01 14:57 Normal [facility] OVA AND PARASITE EXAMINATION on 04-30-2022 O AND P Exam, Formalin Only Final report Normal [facility] Comment on above: Result Comment: Refe rence Range: None Seen No PVA preserved specimen received. For optimal O and P results we suggest the use of O and P kits containing both formalin and PVA. These kits are available from your service station cashier. Performed By: #### P ANCEF #### [facility] [address] [place] [address] Dr. Fernanda Sanon Result 1 Comment Normal [facility] Comment on above: Result Comment: No o va, cysts, or parasites seen. . One negative specimen does not rule out the possibility of a parasitic infection. Performed By: #### P ANCEF #### [facility] [address] [place] [address] Dr. Fernanda Sanon CALPROTECTIN, FECALon 2021 Calprotectin, Fecal 83 ug/g Normal 0-120 [facility] Comment on above: Result Comment: Conc entration Interpretation Follow-Up <16 - 50 ug/g Normal None >50 -120 ug/g Borderline Re-evaluate in 4-6 weeks >120 ug/g Abnormal Repeat as clinically indicated Performed By: #### C ALPOO #### [facility] [address] [place] [address] Dr. Fernanda Sanon PANCREATIC ELASTASE FECALon 04-26-2022 Pancreatic Elastase, Fecal 415 ug Elast./g Normal >200 [facility] Comment on above: Result Comment: Shayna re Pancreatic Insufficiency: <100 Moderate Pancreatic Insufficiency: 100 - 200 Normal: >200 Performed By: #### P ANCEF #### [facility] [address] [place] [address] Dr. Fernanda Sanon GI PANEL (PCR)on 04-22-2022 Adenovirus F 40/41 Not detected Normal NOT DETECTED [facility] Comment on above: Performed By: #### G IPANEL #### [facility] [address] [address] [address] Fernanda Sanon Astrovirus Not detected Normal NOT DETECTED [facility] Comment on above: Performed By: #### G IPANEL #### [facility] [address] [place] [address] Dr. Fernanda Sanon C. Diff toxin A/B Not detected Normal NOT DETECTED [facility] Comment on above: Performed By: #### G IPANEL #### [facility] [address] [address] [address] Fernanda Sanon Campylobacter Not detected Normal NOT DETECTED [facility] Comment on above: Performed By: #### G IPANEL #### [facility] [address] [place] [address] Dr. Fernanda Sanon Cryptosporidium Not detected Normal NOT DETECTED [facility] Comment on above: Performed By: #### G IPANEL #### [facility] [address] [place] [address] Dr. Fernanda Sanon Cyclos. Cayetanensis Not detected Normal NOT DETECTED [facility] Comment on above: Performed By: #### G IPANEL #### [facility] [address] [place] [address] Dr. Fernanda Sanon E. Coli O157 Not Applicable Normal Not Applicable [facility] Comment on above: Performed By: #### G IPANEL #### [facility] [address] [place] [address] Dr. Fernanda Sanon E. histolytica Not detected Normal NOT DETECTED [facility] Comment on above: Performed By: #### G IPANEL #### [facility] [address] [place] [address] Dr. Fernanda Sanon EAEC Not detected Normal NOT DETECTED [facility] Comment on above: Performed By: #### G IPANEL #### [facility] [address] [place] [address] Dr. Fernadna Sanon EIEC Not detected Normal NOT DETECTED [facility] Comment on above: Performed By: #### G IPANEL #### [facility] [address] [place] [address] Dr. Fernanda Sanon EPEC Not detected Normal NOT DETECTED [facility] Comment on above: Performed By: #### G IPANEL #### [facility] [address] [place] [address] Dr. Fernanda Sanon ETEC Not detected Normal NOT DETECTED [facility] Comment on above: Performed By: #### G IPANEL #### [facility] [address] [address] [address] Fernanda Humphrey Lamblia Not detected Normal NOT DETECTED [facility] Comment on above: Performed By: #### G IPANEL #### [facility] [address] [address] [address] Fernanda CHOU CONTROLS PASSED Normal [facility] Comment on above: Performed By: #### G IPANEL #### [facility] [address] [place] [address] Dr. Fernanda BLEDSOE HEADER GI PANEL BACTERIA Normal [facility] Comment on above: Performed By: #### G IPANEL #### [facility] [address] [place] [address] Dr. Fernanda SAUER ECOLI GI PANEL DIARRHEAGENIC E.COLI / SHIGELLA Normal [facility] Comment on above: Performed By: #### G IPANEL #### [facility] [address] [place] [address] Dr. Fernanda SAUER INFO SEE BELOW Normal [facility] Comment on above: Result Comment: EAEC - Enteroaggregative E. Coli EPEC- Enteropathogenic E. Coli ETEC- Enterotoxigenic E. Coli lt/st STEC- Shigella-like toxin-producing E. Coli stx1/stx2 EIEC- Shigella/Enteroinvasive E. Coli Performed By: #### G IPANEL #### [facility] [address] [place] [address] Dr. Fernanda SAUER PARASITES GI PANEL PARASITES Normal [facility] Comment on above: Performed By: #### G IPANEL #### [facility] [address] [address] [address] Fernanda SAUER VIRUS GI PANEL VIRUSES Normal [facility] Comment on above: Performed By: #### G IPANEL #### [facility] [address] [address] [address] Fernanda Sanon Norovirus GI/GII Not detected Normal NOT DETECTED [facility] Comment on above: Performed By: #### G IPANEL #### [facility] [address] [address] [address] Fernanda Sanon P. Shigelloides Not detected Normal NOT DETECTED [facility] Comment on above: Performed By: #### G IPANEL #### [facility] [address] [address] [address] Fernanda Sanon Rotavirus A Not detected Normal NOT DETECTED [facility] Comment on above: Performed By: #### G IPANEL #### [facility] [address] [address] [address] Fernanda Sanon Salmonella Not detected Normal NOT DETECTED [facility] Comment on above: Performed By: #### G IPANEL #### [facility] [address] [address] [address] Fernanda Sanon Sapovirus Not detected Normal NOT DETECTED [facility] Comment on above: Performed By: #### G IPANEL #### [facility] [address] [address] [address] Fernanda Sanon STEC Not detected Normal NOT DETECTED [facility] Comment on above: Performed By: #### G IPANEL #### [facility] [address] [address] [address] Fernanda Sanon Vibrio Not detected Normal NOT DETECTED [facility] Comment on above: Performed By: #### G IPANEL #### [facility] [address] [address] [address] Fernanda Sanon Vibrio Cholera Not detected Normal NOT DETECTED [facility] Comment on above: Performed By: #### G IPANEL #### [facility] [address] [address] [address] Fernanda Sanon Y. Enterocolitica Not detected Normal NOT DETECTED [facility] Comment on above: Performed By: #### G IPANEL #### [facility] [id number] Fernanda Sanon Gastroenterology Office/Clin ic Noteon [...] 12 12.9 PLT 163 198 Liver biopsy 2002 mild periportal chronic inflammation and focal fatty change Imaging MRCP 2002 No cirrhosis 6 mm pancreatic cystic lesion within the uncinate process Renal cyst CT Abd/pelvis 2017 - gallstones - cirrhosis with steatosis Colonoscopy 2017 - Diverticulosis - no colonic polyps Colonoscopy [...] Diagnosis (Verified) (more content not included)... Normal [facility] POINT OF CARE GLUCOSEon 11-0 Glucose [Mass/Vol] 81 mg/dL Normal 74-106 [facility] Comment on above: Performed By: #### P ANCEF #### [facility] [address] [place] [address] Dr. Fernanda Sanon .eGFRon 03-30-2022 Estimated GFR 59 mL/min/1.73m? Low >=60 [facility] Comment on above: Result Comment: [facility] have implemented the eGFR calculation approach [...] Performed By: #### . Automated Diff #### [facility] [address] [place] [address] AFP Tumor Marker,Serumon AFP Tumor Marker, Serum 2.6 ng/mL Normal <=8.[address] [facility] Comment on above: Result Comment: Refe rence values are for non- subjects only; production of alpha-fetoprotein elevates values in women. In this [employer] assay AFP concentrations are <8.4 ng/mL for [...] method is an immunoenzymatic assay manufactured by [employer]. and is tested on the [employer] DxI 600. Values obtained with different assay methods or kits may be different and cannot be used interchangeably. Test results cannot be interpreted as absolute evidence of the presence or absence of malignant disease. Alpha-Fetoprotein values are not interpretable in females for the investigation of malignant disease. Performed By: #### C [id number] #### [facility] [address] [place] [address] B12/Folate Lvlon 03-30-2022 Cobalamin (Vitamin B12) [Mass/Vol] 1014 pg/mL High 180-[address] [facility] Comment on above: Performed By: #### B 12FO #### [facility] [address] [place] [address] Folate Lvl >22.3 Normal >=5.[address] [facility] Comment on above: Result Comment: A [facility] Technical Consultation has determined that deficient Folate concentrations are considered to be less than 4 ng/mL. Performed By: #### B 12FO #### [address] [address] CBC w/ Diffon 03-30-2022 Erythrocyte distribution width (RBC) [Ratio] 13.5 % Normal 11.6-14.[address] [facility] Comment on above: Performed By: #### C BC #### [address] [address] Hematocrit (Bld) [Volume fraction] 37.4 % Normal 36.0-46.[address] [facility] Comment on above: Performed By: #### C BC #### [address] [address] Hemoglobin (Bld) [Mass/Vol] 12.6 g/dL Normal 12.0-16.[address] [facility] Comment on above: Performed By: #### C BC #### [address] [address] MCH (RBC) [Entitic mass] 30.0 pg Normal 27.0-35.[address] [facility] Comment on above: Performed By: #### C BC #### [address] [address] MCHC 33.5 % Normal 31.0-37.[address] [facility] Comment on above: Performed By: #### C BC #### [address] [address] MCV (RBC) [Entitic vol] 89.3 fL Normal 80.0-100.[address] [facility] Comment on above: Performed By: #### C BC #### [address] [address] Platelet 111 x10*3/mcL Low 150-[address] [facility] Comment on above: Performed By: #### C BC #### [address] [address] Platelet mean volume (Bld) [Entitic vol] 9.0 fL Normal 6.7-10.[address] [facility] Comment on above: Performed By: #### C BC #### [address] [address] RBC 4.19 x10*6/mcL Normal 3.80-5.[address] [facility] Comment on above: Performed By: #### C BC #### [address] [address] WBC 5.1 x10*3/mcL Normal 4.5-11.[address] [facility] Comment on above: Performed By: #### C BC #### [address] [address] CMPon 03-30-2022 Albumin [Mass/Vol] 4.1 g/dL Normal 3.2-4.9 [facility] Comment on above: Performed By: #### . Automated Diff #### [address] [id number] Albumin/Globulin [Mass ratio] 1.3 {ratio} Normal 1.1-2.[address] [facility] Comment on above: Performed By: #### . Automated Diff #### [address] [address] Alk Phos 140 IU/L High 32-[address] [facility] Comment on above: Performed By: #### . Automated Diff #### [address] [address] ALT [Catalytic activity/Vol] 32 U/L Normal 14-[address] [facility] Comment on above: Performed By: #### . Automated Diff #### [address] [address] Anion gap [Moles/Vol] 11 mmol/L Normal 7-[address] [facility] Comment on above: Performed By: #### . Automated Diff #### [address] [address] AST [Catalytic activity/Vol] 36 U/L Normal 15-[address] [facility] Comment on above: Performed By: #### . Automated Diff #### [address] [address] Bili Total 0.5 mg/dL Normal 0.3-1.[address] [facility] Comment on above: Performed By: #### . Automated Diff #### [address] [address] Calcium [Mass/Vol] 10.1 mg/dL Normal 8.5-10.3 [facility] Comment on above: Performed By: #### . Automated Diff #### [address] [address] Chloride [Moles/Vol] 105 mmol/L Normal 98-110 [facility] Comment on above: Performed By: #### . Automated Diff #### [address] [address] CO2 [Moles/Vol] 28 mmol/L Normal 22-[address] [facility] Comment on above: Performed By: #### . Automated Diff #### [address] [address] Creatinine [Mass/Vol] 1.01 mg/dL Normal 0.44-1.03 [facility] Comment on above: Performed By: #### . Automated Diff #### [address] [address] Glucose [Mass/Vol] 123 mg/dL High 70-99 [facility] Comment on above: Performed By: #### . Automated Diff #### [address] [address] Potassium [Moles/Vol] 4.3 mmol/L Normal 3.4-4.[address] [facility] Comment on above: Performed By: #### . Automated Diff #### [address] [address] Protein [Mass/Vol] 7.3 g/dL Normal 6.5-8.1 [facility] Comment on above: Performed By: #### . Automated Diff #### [address] [address] Sodium [Moles/Vol] 140 mmol/L Normal 133-142 [facility] Comment on above: Performed By: #### . Automated Diff #### [address] [address] Urea nitrogen [Mass/Vol] 27 mg/dL High 8-[address] [facility] Comment on above: Performed By: #### . Automated Diff #### [address] [address] Urea nitrogen/Creatinine [Mass ratio] 26.7 mg/mg High 10.0-20.[address] [facility] Comment on above: Performed By: #### . Automated Diff #### [address] [address] Diff Autoon 03-30-2022 Baso Absolute 0.0 x10*3/mcL Normal 0.0-0.2 [facility] Comment on above: Performed By: #### . Automated Diff #### [address] [address] Basophils/100 WBC (Bld) 0.8 % Normal 0.0-1.[address] [facility] Comment on above: Performed By: #### . Automated Diff #### [address] [address] Eos Absolute 0.2 x10*3/mcL Normal 0.0-0.[address] [facility] Comment on above: Performed By: #### . Automated Diff #### [address] [address] Eosinophils/100 WBC (Bld) 3.3 % Normal 0.0-5.[address] [facility] Comment on above: Performed By: #### . Automated Diff #### [address] [address] Lymph Absolute 0.9 x10*3/mcL Low 1.0-4.8 [facility] Comment on above: Performed By: #### . Automated Diff #### [address] [address] Lymphocytes/100 WBC (Bld) 16.9 % Low 27.2-40.[address] [facility] Comment on above: Performed By: #### . Automated Diff #### [address] [address] Gem Absolute 0.4 x10*3/mcL Normal 0.1-1.1 [facility] Comment on above: Performed By: #### . Automated Diff #### [address] [address] Monocytes/100 WBC (Bld) 8.3 % Normal 3.7-11.[address] [facility] Comment on above: Performed By: #### . Automated Diff #### [address] [address] Neutro Absolute 3.6 x10*3/mcL Normal 1.8-7.7 [facility] Comment on above: Performed By: #### . Automated Diff #### [address] [address] Neutro Auto 70.7 % Normal 47.2-70.[address] [facility] Comment on above: Performed By: #### . Automated Diff #### [address] [address] Ferritinon 03-30-2022 Ferritin Lvl 48.5 ng/mL Normal 11.0-306.[address] [facility] Comment on above: Performed By: #### F ERR #### [address] [address] Hgb A1con 03-30-2022 Glucose [Mass/Vol] 140 mg/dL High 68-114 [facility] Comment on above: Result Comment: Math ematical Calc approx. The mean gluc equivalency of A1c Performed By: #### . Automated Diff #### [address] [address] Hgb A1c 6.5 % A1c High 4.0-5.[address] [facility] Comment on above: Result Comment: Refe rence Range: 4.0 - 5.6 % Normal 5.7 - 6.4 % Pre-Diabetes > 6.5 % Diabetes Performed By: #### . Automated Diff #### [address] [address] PTon 03-30-2022 INR Coag (PPP) [Relative time] 1.0 {INR} Normal <=3.[address] [facility] Comment on above: Result Comment: INR has no normal range. INR Therapeutic range is: 2.0-3.0 (AF, CVA, TIAs, DVT prophylaxis, acute DVT) 2.5-3.5 ([facility] heart valves, recurrent thrombosis/emboli) Performed By: #### P TINR #### [address] [address] PT Coag (PPP) [Time] 10.5 s Normal 8.9-11.8 [facility] Comment on above: Performed By: #### P TINR #### [address] [address] TIBCon 03-30-2022 Iron [Mass/Vol] 62 ug/dL Normal 28-[address] [facility] Comment on above: Performed By: #### T IBC #### [address] [address] Iron Sat 14.8 % Low >=16.[address] [facility] Comment on above: Performed By: #### T IBC #### [address] [address] TIBC 420 mcg/dL Normal 261-[address] [facility] Comment on above: Performed By: #### T IBC #### [address] [address] Transferrin [Mass/Vol] 300 mg/dL Normal 192-[address] [facility] Comment on above: Performed By: #### T IBC #### [address] [address] Vitamin D 25-Hydroxy Totalon 03-30-2022 Vitamin D 25-Hydroxy Total 67 ng/mL Normal 30-[address] [facility] Comment on above: Result Comment: Kaleb min D 25-Hydroxy Total Reference Range: Deficient: < 20 Insufficient: 20 to < 30 Sufficient: 30 - 100 Upper Safety Limit: > 100 Performed By: #### C [id number] #### [facility] [address] [place] [address] XR FOOT RICHARD MIN 3 VIEWSon XR [...] by: WILVER HANNAH Date: 2022-03-24 12:02 Normal [facility] GLYCOHEMOGLOBIN A1Con 2021 ADA RECOMMENDATION SEE BELOW Normal [facility] Comment on above: Result Comment: ADA RECOMMENDED LIMIT 4.0 - 6.0 ADA THERAPEUTIC TARGET < 7.0 ACTION SUGGESTED > 7.0 Performed By: #### P ANCEF #### [facility] [address] [address] [address] Fernanda Sanon Glucose [Mass/Vol] 148 mg/dL Normal [facility] Comment on above: Performed By: #### P ANCEF #### [facility] [address] [address] [address] Fernanda Sanon HbA1c (Bld) [Mass fraction] 6.8 % Critically high 4.5-6.2 [facility] Comment on above: Performed By: #### P ANCEF #### [facility] [address] [address] [address] Fernanda Sanon LIPID PROFILEon 03-10-2022 CHOL-HDL RATIO NORM SEE BELOW Normal [facility] Comment on above: Result Comment: 3.3 - 4.4 LOW RISK 4.4 - 7.1 AVERAGE RISK 7.1 - 11.0 MODERATE RISK >11.0 HIGH RISK Performed By: #### L IPID, TSH, BMP #### [facility] [address] [address] [address] Fernanda Sanon Cholesterol [Mass/Vol] 141 mg/dL Normal <=200 [facility] Comment on above: Performed By: #### L IPID, TSH, BMP #### [facility] [address] [address] [address] Fernanda Sanon Cholesterol in HDL [Mass/Vol] 74 mg/dL Critically high 40-60 [facility] Comment on above: Performed By: #### L IPID, TSH, BMP #### [facility] [address] [address] [address] Fernanda Sanon Cholesterol in LDL [Mass/Vol] 57.6 mg/dL Normal [facility] Comment on above: Performed By: #### L IPID, TSH, BMP #### [facility] [address] [address] [address] Fernanda Sanon Cholesterol.total/Ch olesterol in HDL [Mass ratio] 1.9 {ratio} Normal [facility] Comment on above: Performed By: #### L IPID, TSH, BMP #### [facility] [address] [address] [address] Fernanda Sanon HDL NORMAL > or = 60 mg/dl - LO W CARDIOVASCULAR RISK <40 mg/dl - HIGH CARDIOVASCULAR RISK Normal [facility] Comment on above: Performed By: #### L IPID, TSH, BMP #### [facility] [address] [address] [address] Fernanda Sanon LDL CALC NORMAL SEE BELOW Normal [facility] Comment on above: Result Comment: <100 mg/dl OPTIMAL 100 - 129 mg/dl NEAR OR ABOVE OPTIMAL 130 - 159 mg/dl BORDERLINE HIGH 160 - 189 mg/dl HIGH >190 mg/dl VERY HIGH Performed By: #### L IPID, TSH, BMP #### [facility] [address] [address] [address] Fernanda Sanon Triglyceride [Mass/Vol] 47 mg/dL Normal <=150 [facility] Comment on above: Performed By: #### L IPID, TSH, BMP #### [facility] [address] [address] [address] Fernanda Sanon VLDL CALC 9.4 mg/dL Normal [facility] Comment on above: Performed By: #### L IPID, TSH, BMP #### [facility] [address] [address] [address] Fernanda Sanon MICROALBUMIN, RAND URon 10-1 mALB 1.3 mg/L Normal <=30.0 [facility] Comment on above: Performed By: #### M ALBR #### [facility] [address] [place] [address] Dr. Fernanda Sanon PROF CHEM 8 (BAS METB)on Anion gap [Moles/Vol] 12.6 mmol/L Normal [facility] Comment on above: Performed By: #### L IPID, TSH, BMP #### [facility] [address] [address] [address] Fernanda Sanon Calcium [Mass/Vol] 9.7 mg/dL Normal 8.5-10.1 [facility] Comment on above: Performed By: #### L IPID, TSH, BMP #### [facility] [address] [address] [address] Fernanda Sanon Chloride [Moles/Vol] 104 mmol/L Normal 98-107 [facility] Comment on above: Performed By: #### L IPID, TSH, BMP #### [facility] [address] [address] [address] Fernanda Sanon CO2 [Moles/Vol] 29.2 mmol/L Normal 21.0-32.0 [facility] Comment on above: Performed By: #### L IPID, TSH, BMP #### [facility] [address] [address] [address] Fernanda Sanon Creatinine [Mass/Vol] 1.20 mg/dL Critically high 0.55-1.02 [facility] Comment on above: Performed By: #### L IPID, TSH, BMP #### [facility] [address] [place] [address] Dr. Fernanda Sanon EGFR-AF BRITISH 54 mL/min/1.73m2 Critically low >=60 [facility] Comment on above: Performed By: #### L IPID, TSH, BMP #### [facility] [address] [place] [address] Dr. Fernanda Sanon EGFR-NON AF BRITISH 44 mL/min/1.73m2 Critically low >=60 [facility] Comment on above: Performed By: #### L IPID, TSH, BMP #### [facility] [address] [place] [address] Dr. Fernanda Sanon Glucose [Mass/Vol] 122 mg/dL Critically high 74-106 [facility] Comment on above: Performed By: #### L IPID, TSH, BMP #### [facility] [address] [place] [address] Dr. Fernanda Sanon Potassium [Moles/Vol] 4.8 mmol/L Normal 3.5-5.1 [facility] Comment on above: Performed By: #### L IPID, TSH, BMP #### [facility] [address] [place] [address] Dr. Fernanda Sanon Sodium [Moles/Vol] 141 mmol/L Normal 136-145 [facility] Comment on above: Performed By: #### L IPID, TSH, BMP #### [facility] [address] [place] [address] Dr. Fernanda Sanon Urea nitrogen [Mass/Vol] 39.0 mg/dL Critically high 7.0-18.0 [facility] Comment on above: Performed By: #### L IPID, TSH, BMP #### [facility] [address] [place] [address] Dr. Fernanda Sanon Urea nitrogen/Creatinine [Mass ratio] 32.5 mg/mg Normal [facility] Comment on above: Performed By: #### L IPID, TSH, BMP #### [facility] [address] [address] [address] Fernanda Sanon TSHon 03-10-2022 TSH 2.050 uIU/mL Normal 0.358-3.740 [facility] Comment on above: Performed By: #### L IPID, TSH, BMP #### [facility] [address] [address] [address] Fernanda Sanon POINT OF CARE GLUCOSEon 02-21 Glucose [Mass/Vol] 124 mg/dL Critically high 74-106 [facility] Comment on above: Performed By: #### P ANCEF #### [facility] [address] [address] [address] Fernanda Sanon Cult,Urineon 01-21-2022 Cult,Urine Specimen Description .CLEAN CATCH URINE Culture NO GROWTH Report Status FINAL 01/21/2022 Normal [facility] Comment on above: Performed By: #### U RC #### [address] [place], [place] [id number] [employer]: Beto Farah MD [facility] [address] [place] [address] [employer]: Wilver Calvillo MD Urinalysis w/ Microon 2021 Bilirubin, SemiQt,Ur Negative Normal NEG [facility] Comment on above: Performed By: #### U AMIC #### [facility] [address] [place], [place] [id number] [employer]: Wilver Calvillo MD Blood, Urine Negative Normal NEG [facility] Comment on above: Performed By: #### U AMIC #### [facility] [address] [place] [address] [employer]: Wilver Calvillo MD Clarity (U) Clear Normal CLEAR [facility] Comment on above: Performed By: #### U AMIC #### [facility] [address] [place] [address] [employer]: Wilver Calvillo MD Color (U) Yellow Normal YEL [facility] Comment on above: Performed By: #### U AMIC #### [facility] [address] [place], [place] [id number] [employer]: Wilver Calvillo MD Epithelial cells LM Ql (Urine sed) 0 TO 2 Normal 0-25 [facility] Comment on above: Performed By: #### U AMIC #### [facility] [address] [place], [place] [id number] [employer]: Wilver Calvillo MD Glucose Ql (U) Negative Normal NEG [facility] Comment on above: Performed By: #### U AMIC #### [facility] [address] [place], [place] [id number] [employer]: Wilver Calvillo MD Ketones Ql (U) TRACE Abnormal NEG [facility] Comment on above: Performed By: #### U AMIC #### [facility] [address] [place], [place] [id number] [employer]: Wilver Calvillo MD Leukocyte esterase Test strip Ql (U) Negative Normal NEG [facility] Comment on above: Performed By: #### U AMIC #### [facility] [address] [place] [address] Dr[place], [place] [id number] [employer]: Wilver Calvillo MD Mucus Strands 1+ Abnormal NONE [facility] Comment on above: Performed By: #### U AMIC #### [facility] [address] [place], [place] [address]83 [employer]: Wilver Calvillo MD Nitrite,Ur Negative Normal NEG [facility] Comment on above: Performed By: #### U AMIC #### [facility] [address] [place] [address] [place] [address] [employer]: Wilver Calvillo MD PH,Ur 6.0 Normal 5.0-9.0 [facility] Comment on above: Performed By: #### U AMIC #### [facility] [address] [place], [place] [address] [employer]: Wilver Calvillo MD Protein Ql (U) Negative Normal NEG [facility] Comment on above: Performed By: #### U AMIC #### [facility] [address] [place], [place] [id number] [employer]: Wilver Calvillo MD Spec. [place],Ur >1.030 High 1.010-1.020 [facility] Comment on above: Performed By: #### U AMIC #### [facility] [address] [place], [place] [id number] [employer]: Wilver Calvillo MD Urine RBC's 0 TO 2 Normal 0-2 [facility] Comment on above: Performed By: #### U AMIC #### [facility] [address] [place] [address] Dr. [place], [facility] [employer]: Wilver Calvillo MD Urine WBC's 0 TO 2 Normal 0-5 [facility] Comment on above: Performed By: #### U AMIC #### [facility] [address] [place] [address] Dr[place], [place] [id number] [employer]: Wilver Calvillo MD Urobilinogen,Ur Normal Normal NORM [facility] Comment on above: Performed By: #### U AMIC #### [facility] [address] [place], [facility] [employer]: Wilver Calvillo MD Urinalysis with Microscopico n 01-20-2022 Bilirubin Urine Negative NEGATIVE [facility] Color, UA Yellow Yellow [facility] Epithelial Cells UA 0 TO 2 [facility] Glucose, Ur Negative NEGATIVE [facility] Interpretation and review of laboratory results Abnormal [facility] Ketones Ql (U) TRACE Abnormal NEGATIVE [facility] Leukocyte esterase Test strip Ql (U) Negative NEGATIVE [facility] Mucus, UA 1+ Abnormal None [facility] Nitrite, Urine Negative NEGATIVE [facility] pH, UA 6.0 5 - 9 [facility] Protein, UA Negative NEGATIVE [facility] RBC, UA 0 TO 2 [facility] Specific [place], UA High 1.01 - 1.02 [facility] Turbidity UA Clear Clear [facility] Urine Hgb Negative NEGATIVE [facility] Urobilinogen, Urine Normal Normal [facility] WBC, UA 0 TO 2 [facility] MG MAMM SCREEN 3D RICHARD CADon 12-25-2021 MG MAMM SCREEN 3D RICHARD CAD Patient: MASSIMO BANERJEE Exam Date: 12/25/2021 : 1950 Gender:F Ordering : [facility] Admission #: [id number] Family : Order #: [id number] CLICK HERE TO VIEW EXAM RADIOLOGY REPORT [...] thyroid cancer at age 62. LOCATION: [facility] BREAST COMPOSITION: Heterogeneously dense,which may obscure [...] Barbosa M.D. on 12/26/2021 at 11:11 Normal [facility] Cult,Urineon 11-19-2021 Cult,Urine Specimen Description .CLEAN CATCH URINE Culture NO GROWTH Report Status FINAL 11/19/2021 Normal [facility] Comment on above: Performed By: #### U RC #### [facility] [address] [place], [place] [address] [employer]: Beto Farah MD [facility] [address] [place], [place] [id number] [employer]: Wilver Calvillo MD Urinalysis w/ Microon 2021 ----- Normal [facility] Comment on above: Performed By: #### B MP, IPF, CDP #### [facility] [address] [place], [place] [address]83 [employer]: Wilver Calvillo MD Bacteria 2+ Abnormal NONE [facility] Comment on above: Performed By: #### B MP, IPF, CDP #### [facility] [address] [place], [place] [address]85783 [employer]: Wilver Calvillo MD Bilirubin, SemiQt,Ur Negative Normal NEG [facility] Comment on above: Performed By: #### B MP, IPF, CDP #### [facility] [address] [place], [place] [id number] [employer]: Wilver Calvillo MD Blood, Urine Negative Normal NEG [facility] Comment on above: Performed By: #### B MP, IPF, CDP #### [facility] [address] [place], [place] 687[address]83 [employer]: Wilver Calvillo MD Clarity (U) Clear Normal CLEAR [facility] Comment on above: Performed By: #### B MP, IPF, CDP #### [facility] [address] [place], [place] [address]019183 [employer]: Wilver Calvillo MD Color (U) Yellow Normal YEL [facility] Comment on above: Performed By: #### B MP, IPF, CDP #### [facility] [address] [place], [place] [id number] [employer]: Wilver Calvillo MD Epithelial cells LM Ql (Urine sed) 2 TO 5 Normal 0-25 [facility] Comment on above: Performed By: #### B MP, IPF, CDP #### [facility] [address] [place], [place] [address]83 [employer]: Wilver Calvillo MD Glucose Ql (U) Negative Normal NEG [facility] Comment on above: Performed By: #### B MP, IPF, CDP #### [facility] [address] [place], [place] [address]83 [employer]: Wilver Calvillo MD Ketones Ql (U) TRACE Abnormal NEG [facility] Comment on above: Performed By: #### B MP, IPF, CDP #### [facility] [address] [place], [place] [address]89[address]83 [employer]: Wilver Calvillo MD Leukocyte esterase Test strip Ql (U) Negative Normal NEG [facility] Comment on above: Performed By: #### B MP, IPF, CDP #### [facility] [address] [place], [place] [id number] [employer]: Wilver Calvillo MD Mucus Strands 2+ Abnormal NONE [facility] Comment on above: Performed By: #### B MP, IPF, CDP #### [facility] [address] [place], [place] [address]83 [employer]: Wilver Calvillo MD Nitrite,Ur Negative Normal NEG [facility] Comment on above: Performed By: #### B MP, IPF, CDP #### [facility] [address] [place], [place] [address] [employer]: Wilver Calvillo MD PH,Ur 5.5 Normal 5.0-9.0 [facility] Comment on above: Performed By: #### B MP, IPF, CDP #### [facility] [address] [place], [place] [address]883 [employer]: Wilver Calvillo MD Protein Ql (U) TRACE Abnormal NEG [facility] Comment on above: Performed By: #### B MAAME IPF, CDP #### [facility] [address] [place] [address] Dr. [place], [place] [phone] [employer]: Wilver Calvillo MD Spec. [place],Ur >1.030 High 1.010-1.020 [facility] Comment on above: Performed By: #### B MAAME IPF, CDP #### [facility] [address] [place] [address] Dr[place], [place] [id number] [employer]: Wilver Calvillo MD Urine RBC's 0 TO 2 Normal 0-2 [facility] Comment on above: Performed By: #### B SUKHJINDER ISABEL, CDP #### [facility] [address] [place] [address] Dr[address] [place], [place] [id number] [employer]: Wilver Calvillo MD Urine WBC's 0 TO 2 Normal 0-5 [facility] Comment on above: Performed By: #### B SUKHJINDER ISABEL, CDP #### [facility] [address] [place] [address] Dr. [place], [place] [phone] [employer]: Wilver Calvillo MD Urobilinogen,Ur Normal Normal NORM [facility] Comment on above: Performed By: #### B MAAME IPF, CDP #### [facility] [address] [place] [address] Dr. [place], [facility] [employer]: Wilver Calvillo MD Urinalysis with Microscopico n 11-18-2021 - [facility] Bacteria, UA 2+ Abnormal None [facility] Bilirubin Urine Negative NEGATIVE [facility] Color, UA Yellow Yellow [facility] Epithelial Cells UA 2 TO 5 [facility] Glucose, Ur Negative NEGATIVE [facility] Interpretation and review of laboratory results Abnormal [facility] Ketones Ql (U) TRACE Abnormal NEGATIVE [facility] Leukocyte esterase Test strip Ql (U) Negative NEGATIVE [facility] Mucus, UA 2+ Abnormal None [facility] Nitrite, Urine Negative NEGATIVE [facility] pH, UA 5.5 [facility] Protein, UA TRACE Abnormal NEGATIVE [facility] RBC, UA 0 TO 2 [facility] Specific [place], UA >1.030 High [facility] Turbidity UA Clear Clear [facility] Urine Hgb Negative NEGATIVE [facility] Urobilinogen, Urine Normal Normal [facility] WBC, UA 0 TO 2 [facility] POINT OF CARE GLUCOSEon - Glucose [Mass/Vol] 105 mg/dL Normal 74-106 [facility] Comment on above: Performed By: #### P ANCEF #### [facility] Laboratory [address] [address] [address] Fernanda Sanon OPERATIVE REPORTon 2 OPERATIVE REPORT [address] [id number] OPERATIVE REPORT PATIENT NAME: MASSIMO BANERJEE : 1950 MED REC NO: [id number] ROOM: ACCOUNT NO: [id number] ADMIT DATE: 08/05/2021 PROVIDER: Sandra Alvarenga DATE OF PROCEDURE: 08/05/2021 SURGEON: Dr. Sandra Alvarenga. COMMUNITY DEVELOPMENT WORKER: None. PREOPERATIVE DIAGNOSES: 1. Overactive bladder. 2. Urinary urgency. 3. Urge incontinence. POSTOPERATIVE DIAGNOSES: 1. Overactive bladder. 2. Urinary urgency. 3. Urge incontinence. PROCEDURES PERFORMED: InterStim replacement of device and lead, phase 1 and 2. ANESTHESIA: MAC. COMPLICATIONS: None. ESTIMATED BLOOD LOSS: Minimal. SPECIMENS: None. PROSTHESIS: [employer] InterStim device lead and generator. DISPOSITION: Stable. [...] obtained. The patient was transferred from the [facility] onto the operating room table, where she [...] awoken from general anesthesia, transferred to the [facility], and taken to the PACU in satisfactory condition by Nursing and Anesthesia Teams. PLAN: The patient will be discharged home to follow up with us in two to four weeks, so we can check the device. SANDRA ALVARENGA [id number] Doc#: [id number] CC: [facility] SURGICAL PROCEDUR ESon 08-05-2021 FLUORO FOR SURGICAL PROCEDURES Radiology exam is complete. No Radiologist dictation. Please follow up with ordering provider. Final result Normal [facility] Basic Metabolic Panelon Anion gap [Moles/Vol] 10 mmol/L 9 - 17 mmol/L [facility] Calcium [Mass/Vol] 10.2 mg/dL 8.6 - 10. 4 mg/dL [facility] Chloride [Moles/Vol] 105 mmol/L 98 - 10 7 mmol/L [facility] CO2 [Moles/Vol] 26 mmol/L 20 - 31 mmol/L [facility] Creatinine [Mass/Vol] 1.01 mg/dL High 0.50 - 0.90 mg/dL [facility] GFR >60 >60 mL/min [facility] GFR Non- 54 mL/min Low >60 [facility] Glucose [Mass/Vol] 102 mg/dL High 70 - 99 mg/dL [facility] Interpretation and review of laboratory results Abnormal [facility] Potassium [Moles/Vol] 4.1 mmol/L 3.7 - 5.3 mmol/L [facility] Sodium [Moles/Vol] 141 mmol/L 135 - 144 mmol/L [facility] Urea nitrogen (BldV) [Mass/Vol] 32 mg/dL High 8 - 23 mg/dL [facility] Urea nitrogen/Creatinine (Bld) [Mass ratio] 32 High [facility] Basic Metabolic Profon 07-23 (cont.) Normal [facility] Comment on above: Result Comment: Aver age GFR for 70 or more years old: 75 mL/min/1.73sq m Chronic Kidney Disease: <60 mL/min/1.73sq m Kidney failure: <15 mL/min/1.73sq m eGFR calculated using average adult body mass. Additional eGFR calculator available at: http://www.Chideo.Figure 1/multiple_crcl_2011.htm Performed By: #### B MP, IPF, CDP #### [facility] [address] [place] [address] [employer] Ref[employer]: Wilver Calvillo MD Anion gap [Moles/Vol] 10 mmol/L Normal 9-17 [facility] Comment on above: Performed By: #### B MP, IPF, CDP #### [facility] [address] [place], [place] [id number] [employer]: Wilver Calvillo MD BUN/CRE Ratio 32 High 9-20 [facility] Comment on above: Performed By: #### B MP, IPF, CDP #### [facility] [address] [place], [place] [id number] [employer]: Wilver Calvillo MD Calcium [Mass/Vol] 10.2 mg/dL Normal 8.6-10.4 [facility] Comment on above: Performed By: #### B MP, IPF, CDP #### [facility] [address] [place], [place] [id number] [employer]: Wilver Calvillo MD Chloride [Moles/Vol] 105 mmol/L Normal 98-107 [facility] Comment on above: Performed By: #### B MP, IPF, CDP #### [facility] [address] [place], [place] [id number] [employer]: Wilver Calvillo MD CO2 [Moles/Vol] 26 mmol/L Normal 20-31 [facility] Comment on above: Performed By: #### B MP, IPF, CDP #### [facility] [address] [place], [place] [id number] [employer]: Wilver Calvillo MD Creatinine [Mass/Vol] 1.01 mg/dL High 0.50-0.90 [facility] Comment on above: Performed By: #### B MP, IPF, CDP #### [facility] [address] [place], [place] [id number] [employer]: Wilver Calvillo MD GFR, Amer >60 Normal >60 [facility] Comment on above: Performed By: #### B MP, IPF, CDP #### [facility] [address] [place], [place] [id number] [employer]: Wilver Calvillo MD GFR,non Amer 54 mL/min Low >60 [facility] Comment on above: Performed By: #### B SUKHJINDER ISABEL, CDP #### [facility] [address] [place], [place] [id number] [employer]: Wilver Calvillo MD Glucose [Mass/Vol] 102 mg/dL High 70-99 [facility] Comment on above: Performed By: #### B SUKHJINDER ISABEL, CDP #### [facility] [address] [place], [place] [id number] [employer]: Wilver Calvillo MD Potassium [Moles/Vol] 4.1 mmol/L Normal 3.7-5.3 [facility] Comment on above: Performed By: #### B SUKHJINDER ISABEL, CDP #### [address] [place], [place] 9787783 [employer]: Wilver Calvillo MD Sodium [Moles/Vol] 141 mmol/L Normal 135-144 [facility] Comment on above: Performed By: #### B SUKHJINDER ISABEL, CDP #### [address] [place], [place] 1003083 [employer]: Wilver Calvillo MD Staging: Normal [facility] Comment on above: Result Comment: Stag e 1: Some kidney damage normal GFR Stage 2: Mild kidney damage GFR 60-89 Stage 3: Moderate kidney damage GFR 30-59 Stage 4: Severe kidney damage GFR 15-29 Stage 5: Severe kidney damage GFR <15 ESRD - chronic treatment by dialysis or transplant Performed By: #### B SUKHJINDER ISABLE, CDP #### [facility] [address] [place] [address] Dr. [place], [place] [phone] [employer]: Wilver Calvillo MD Urea nitrogen [Mass/Vol] 32 mg/dL High 8-23 [facility] Comment on above: Performed By: #### B SUKHJINDER ISABEL, CDP #### [facility] [address] [place] [address] [employer]: Wilver Calvillo MD CBC Auto Differentialon Absolute Eos # 0.26 [facility] th Absolute Immature Granulocyte <0.03 [facility] Absolute Lymph # 1.09 Low [facility] alth Absolute Gem # 0.54 [facility] lt Basophils (Bld) [#/Vol] 0.05 10*3/uL [facility] Basophils/100 WBC (Bld) 1 % 0 - 2 % [facility] Eosinophils/100 WBC (Bld) 4 % 1 - 4 % [facility] Hematocrit (Bld) [Volume fraction] 40.2 % 36.3 - 47.1 % [facility] Hemoglobin.gastroint estinal spec 1 Ql (Stl) 12.3 g/dL 11.9 - 15.1 g/dL [facility] Immature granulocytes/100 WBC (Bld) 0 % 0 [facility] Interpretation and review of laboratory results Abnormal [facility] Lymphocytes/100 WBC (Bld) 18 % Low 24 - 43 % [facility] MCH (RBC) [Entitic mass] 29.4 pg 25.2 - 33.5 pg [facility] MCHC (RBC) [Mass/Vol] 30.6 g/dL 28.4 - 34.8 g/dL [facility] MCV (RBC) [Entitic vol] 95.9 fL 82.6 - 102.9 fL [facility] Monocytes/100 WBC (Bld) 9 % 3 - 12 % [facility] NRBC Automated 0.0 0.0 per 100 WBC [facility] Platelet distribution width (Bld) [Ratio] 12.5 % 11.8 - 14.4 % [facility] Platelets (Bld) [#/Vol] See Reflexed IPF Result [facility] RBC (Bld) [#/Vol] 4.19 10*6/uL 3.95 - 5.1 1 m/uL [facility] Segmented neutrophils/100 WBC (Bld) 69 % High 36 - 65 % [facility] Segs Absolute 4.26 [facility] h WBC (Bld) [#/Vol] 6.2 10*3/uL [facility] CBC with Diffon 07-23-2021 Abs. Basophil 0.05 k/uL Normal 0.00-0.20 [facility] Comment on above: Performed By: #### B MP, IPF, CDP #### [facility] [address] [place] [address] Dr[address] [place], [address] [place] [address] [employer]: Wilver Calvillo MD Abs.Imm.Granulocyte <0.03 Normal 0.00-0.30 [facility] Comment on above: Performed By: #### B MP, IPF, CDP #### [address] [place], [place] [address] [employer]: Wilver Calvillo MD Abs.Neutrophil (Seg) 4.26 k/uL Normal 1.50-8.10 [facility] Comment on above: Performed By: #### B MP, IPF, CDP #### [address] [place], [place] [address] [employer]: Wilver Calvillo MD Basophils/100 WBC (Bld) 1 % Normal 0-2 [facility] Comment on above: Performed By: #### B MP IPF, CDP #### [address] [place], [place] [address] [employer]: Wilver Calvillo MD Eosinophils (Bld) [#/Vol] 0.26 10*3/uL Normal 0.00-0.44 [facility] Comment on above: Performed By: #### B MP, IPF, CDP #### [address] [place], [facility] [employer]: Wilver Calvillo MD Eosinophils/100 WBC (Bld) 4 % Normal 1-4 [facility] Comment on above: Performed By: #### B MP, IPF, CDP #### [address] [place], [facility]83 [employer]: Wilver Calvillo MD Erythrocyte distribution width (RBC) [Ratio] 12.5 % Normal 11.8-14.4 [facility] Comment on above: Performed By: #### B MP, IPF, CDP #### [facility] [address] [place], [place] [id number] [employer]: Wilver Calvillo MD Hematocrit (Bld) [Volume fraction] 40.2 % Normal 36.3-47.1 [facility] Comment on above: Performed By: #### B MP IPF, CDP #### [facility] [address] [place], [facility] [employer]: Wilver Calvillo MD Hemoglobin (Bld) [Mass/Vol] 12.3 g/dL Normal 11.9-15.1 [facility] Comment on above: Performed By: #### B MP IPF, CDP #### [address] [place], [facility]83 [employer]: Wilver Calvillo MD Immature granulocytes/100 WBC (Bld) 0 % Normal 0 [facility] Comment on above: Performed By: #### B MP IPF, CDP #### [address] [place], [facility] [employer]: Wilver Calvillo MD Lymphocytes (Bld) [#/Vol] 1.09 10*3/uL Low 1.10-3.70 [facility] Comment on above: Performed By: #### B MP IPF, CDP #### [address] [place], [facility]83 [employer]: Wilver Calvillo MD Lymphocytes/100 WBC (Bld) 18 % Low 24-43 [facility] Comment on above: Performed By: #### B MP, IPF, CDP #### [address] [place], [facility]83 [employer]: Wilver Calvillo MD MCH (RBC) [Entitic mass] 29.4 pg Normal 25.2-33.5 [facility] Comment on above: Performed By: #### B MP IPF, CDP #### [address] [place] [id number] [employer]: Wilver Calvillo MD MCHC (RBC) [Mass/Vol] 30.6 g/dL Normal 28.4-34.8 [facility] Comment on above: Performed By: #### B MP, IPF, CDP #### [facility] [address] [place] [address] Dr. [place], [place] [phone] [employer]: Wilver Calvillo MD MCV (RBC) [Entitic vol] 95.9 fL Normal 82.6-102.9 [facility] Comment on above: Performed By: #### B MP, IPF, CDP #### [address] [place], [place] [phone] [employer]: Wilver Calvillo MD Monocytes (Bld) [#/Vol] 0.54 10*3/uL Normal 0.10-1.20 [facility] Comment on above: Performed By: #### B MP, IPF, CDP #### [facility] [address] [place] [address] Dr. [place], [place] [phone] [employer]: Wilver Calvillo MD Monocytes/100 WBC (Bld) 9 % Normal 3-12 [facility] Comment on above: Performed By: #### B MP, IPF, CDP #### [facility] [address] [place] [address] Dr. [place], [place] [phone] [employer]: Wilver Calvillo MD Neutrophil (Seg) 69 % High 36-65 [facility] Comment on above: Performed By: #### B MP, IPF, CDP #### [facility] [address] [place] [address] Dr. [place], [place] [id number] [employer]: Wilver Calvillo MD NRBC Automated 0.0 per 100 WBC Normal 0.0 [facility] Comment on above: Performed By: #### B MP, IPF, CDP #### [facility] [address] [place] [address] Dr. [place], [place] [phone] [employer]: Wilver Calvillo MD Platelet Count See Reflexed IPF Result Normal 138-453 [facility] Comment on above: Performed By: #### B MP, IPF, CDP #### [facility] [address] [place] [address] [employer]: Wilver Calvillo MD RBC (Bld) [#/Vol] 4.19 10*6/uL Normal 3.95-5.11 [facility] Comment on above: Performed By: #### B MP, IPF, CDP #### [facility] [address] [place] [address] [employer]: Wilver Calvillo MD WBC (Bld) [#/Vol] 6.2 10*3/uL Normal 3.5-11.3 [facility] Comment on above: Performed By: #### B MP, IPF, CDP #### [facility] [address] [place] [address] [employer]: Wilver Calvillo MD EKG 12 LeadOrdered By: Steve Wilson on 07-23-2021 Atrial Rate 69 BPM [employer] Phone: P [place] 64 degrees [employer] Phone: P-R Interval 130 ms [employer] Phone: Q-T Interval 366 ms [employer] Phone: QRS Duration 82 ms [employer] Phone: QTc Calculation (Bazett) 392 ms [employer] Phone: R [place] 27 degrees [employer] Phone: T [place] 34 degrees [employer] Phone: Ventricular Rate 69 BPM [employer] Phone: [employer] Phone: EKG 12 Leadon 07-23-2021 Normal sinus rhythm Possible Left atrial enlargement Borderline ECG When compared with ECG of 16-MAR-2016 09:54, No significant change was found Confirmed by MONI WILSON ([id number]) on 07/23/2021 1:56:02 PM [facility] Moni Wilson MD - 07/23/2021 Normal sinus rhythm Possible Left atrial enlargement Borderline ECG When compared with ECG of 16-MAR-2016 09:54, No significant change was found Confirmed by MONI WILSON ([id number]) on 07/23/2021 1:56:02 PM [facility] Work Phone: Immature Platelet Fractionon 07-23-2021 Interpretation and review of laboratory results Abnormal [facility] Platelet, Fluorescence 133 Low [facility] Platelet, Immature Fraction 3.7 % 1.1 - 10.3 % [facility] - Chemistry and C hemistry - challengeon 07-23-2021 GFR/1.73 sq M.predicted MDRD (S/P/Bld) [Vol rate/Area] [facility] Comment on above: Average GFR for 70 o r more years old: 75 mL/min/1.73sq m Chronic Kidney Disease: <60 mL/min/1.73sq m Kidney failure: <15 mL/min/1.73sq m eGFR calculated using average adult body mass. Additional eGFR calculator available at: http://www.Unlimited [employer]s/multiple_crcl_2011.htm Stage 1: Some kidney damage normal GFR Stage 2: Mild kidney damage GFR 60-89 Stage 3: Moderate kidney damage GFR 30-59 Stage 4: Severe kidney damage GFR 15-29 Stage 5: Severe kidney damage GFR <15 ESRD - chronic treatment by dialysis or transplant PLT, Immature Fract.on 07-23 Platelet, Fluoresc. 133 k/uL Low 138-453 [facility] Comment on above: Performed By: #### B SUKHJINDER ISABEL, CDP #### [address] [place] [address] [employer]: Wilver Calvillo MD PLT, Immature Fract. 3.7 % Normal 1.1-10.3 [facility] Comment on above: Performed By: #### B SUKHJINDER ISABEL, CDP #### [facility] [address] [place], [place] [phone] [employer]: Wilver Calvillo MD Cult,Urineon 04-08-2021 Cult,Urine Specimen Description .CLEAN CATCH URINE Special Requests NOT REPORTED Culture NO SIGNIFICANT GROWTH Report Status FINAL 04/08/2021 Normal [facility] Comment on above: Performed By: #### U RC #### [facility] [address], [place] 6522[address] [employer]: Beto Farah MD [facility] [address] [place], [place] 9[address]83 [employer]: Wilver Calvillo MD Urinalysis w/ Microon 2020 ----- Normal [facility] Comment on above: Performed By: #### U AMIC #### [facility] [address] [place] [address] Dr. [place], [place] [phone] [employer]: Wilver Calvillo MD Bilirubin, SemiQt,Ur Negative Normal NEG [facility] Comment on above: Performed By: #### U AMIC #### [facility] [address] [place] [address] [place] [address] [employer]: Wilver Calvillo MD Blood, Urine Negative Normal NEG [facility] Comment on above: Performed By: #### U AMIC #### [facility] [address] [place] [address] Dr. [place], [place] [phone] [employer]: Wilver Calvillo MD Clarity (U) Clear Normal CLEAR [facility] Comment on above: Performed By: #### U AMIC #### [facility] [address] [place] [address] [employer]: Wilver Calvillo MD Color (U) Yellow Normal YEL [facility] Comment on above: Performed By: #### U AMIC #### [facility] [address] [place] [address] [employer]: Wilver Calvillo MD Epithelial cells LM Ql (Urine sed) None Normal 0-25 [facility] Comment on above: Performed By: #### U AMIC #### [facility] [address] [place] [address] Dr. [place], [place] 9294983 [employer]: Wilver Calvillo MD Glucose Ql (U) Negative Normal NEG [facility] in Hospital Comment on above: Performed By: #### U AMIC #### [facility] [address] [place] [address] Dr. [place], [place] [phone] [employer]: Wilver Calvillo MD Ketones Ql (U) TRACE Abnormal NEG [facility] Comment on above: Performed By: #### U AMIC #### [facility] [address] [place] [address] Dr. [place], [place] [phone] [employer]: Wilver Calvillo MD Leukocyte esterase Test strip Ql (U) Negative Normal NEG [facility] Comment on above: Performed By: #### U AMIC #### [facility] [address] [place] [address] Dr. [place], [place] [phone] [employer]: Wilver Calvillo MD Nitrite,Ur Negative Normal NEG [facility] Comment on above: Performed By: #### U AMIC #### [facility] [address] [place] [address] Dr. [place], [place] [phone] [employer]: Wilver Calvillo MD PH,Ur 6.0 Normal 5.0-9.0 [facility] Comment on above: Performed By: #### U AMIC #### [facility] [address] [place] [address] Dr. [place], [place] 5396783 [employer]: Wilver Calvillo MD Protein Ql (U) Negative Normal NEG [facility] in [facility] Comment on above: Performed By: #### U AMIC #### [facility] [address] [place] [address] Dr. [place], [place] 6931883 [employer]: Wilver Calvillo MD Spec. [place],Ur 1.025 High 1.010-1.020 [facility] Comment on above: Performed By: #### U AMIC #### [facility] [address] [place], [place] [phone] [employer]: Wilver Calvillo MD Urine RBC's None Normal 0-2 [facility] Comment on above: Performed By: #### U AMIC #### [facility] [address] [place], [place] [phone] [employer]: Wilver Calvillo MD Urine WBC's 0 TO 2 Normal 0-5 [facility] Comment on above: Performed By: #### U AMIC #### [facility] [address] [place], [place] 1415383 [employer]: Wilver Calvillo MD Urobilinogen,Ur Normal Normal NORM [facility] Comment on above: Performed By: #### U AMIC #### [facility] [address] [place], [place] [phone] [employer]: Wilver Calvillo MD Amorphous sediment LM Ql (Urine sed) NOT REPORTED Normal [facility] Comment on above: Performed By: #### U AMIC #### [facility] [address] [place] [address] Dr. [place], [place] [phone] [employer]: Wilver Calvillo MD Bacteria NOT REPORTED Normal [facility] Comment on above: Performed By: #### U AMIC #### [facility] [address] [place], [place] [phone] [employer]: Wilver Calvillo MD Casts NOT REPORTED Normal [facility] Comment on above: Performed By: #### U AMIC #### [facility] [address] [place] [address] Dr. [place], [place] [phone] [employer]: Wilver Calvillo MD Comment NOT REPORTED Normal [facility] Comment on above: Performed By: #### U AMIC #### [facility] [address] [place] [address] [employer]: Wilver Calvillo MD Crystals LM Nom (Urine sed) NOT REPORTED Normal [facility] Comment on above: Performed By: #### U AMIC #### [facility] [address] [place] [address] [employer]: Wilver Calvillo MD Epithelial, Renal NOT REPORTED Normal 0 [facility] Comment on above: Performed By: #### U AMIC #### [facility] [address] [place], [place] [phone] [employer]: Wilver Calvillo MD Mucus Strands NOT REPORTED Normal [facility] Comment on above: Performed By: #### U AMIC #### [facility] [address] [place], [place] 075[address]83 [employer]: Wilver Calvillo MD Other Observations NOT REPORTED Normal NREQ [facility] Comment on above: Performed By: #### U AMIC #### [facility] [address] [place], [place] [phone] [employer]: Wilver Calvillo MD Trichomonas NOT REPORTED Normal [facility] Comment on above: Performed By: #### U AMIC #### [facility] [address] [place] [address] [place]. [place], [place] [address] [employer]: Wilver Calvillo MD Yeast NOT REPORTED Normal [facility] Comment on above: Performed By: #### U AMIC #### [facility] [address] [place], [place] 8116083 [employer]: Wilver Calvillo MD Urinalysis With Microscopico n 2019 Amorphous, UA NOT REPORTED None [facility] [place] [place] Bacteria, UA NOT REPORTED None [facility] [place] Bilirubin Urine Negative NEGATIVE [facility] [place] Casts UA NOT REPORTED /LPF [facility] [place] Color, UA YELLOW YELLOW [facility] Crystals, UA NOT REPORTED None /HPF [facility] Epithelial Cells UA 0 TO 2 [place] Glucose, Ur Negative NEGATIVE [place] Interpretation and review of laboratory results Abnormal [place] Ketones Ql (U) TRACE Abnormal NEGATIVE [place] Leukocyte esterase Test strip Ql (U) MODERATE Abnormal NEGATIVE [place] Mucus, UA NOT REPORTED None [place] Nitrite, Urine Negative NEGATIVE [place] Other Observations UA NOT REPORTED NOT REQ. [place] pH, UA 5.5 [place] Protein (U) [Mass/Vol] Negative NEGATIVE [place] RBC (U) [#/Vol] 0 TO 2 [facility] [place] [place] Renal Epithelial, UA NOT REPORTED 0 /HPF [place] Specific [place], UA >1.030 [place], [place] Trichomonas, UA NOT REPORTED None [facility] [place] Turbidity UA CLEAR CLEAR [place], [place] Urinalysis Comments NOT REPORTED [place], [place] Urine Hgb Negative NEGATIVE [place], [place] Urobilinogen, Urine Normal Normal [place] WBC, UA 5 TO 10 [place], [place] Yeast, UA NOT REPORTED None [place] Otheron 02-24-2019 Unremarkable bowel-gas pattern. Indeterminate right upper quadrant calcification most likely reflects cholelithiasis, as seen on prior CT. Possible calculus versus vascular calcification overlying the left renal shadow. No stone at this level on CT 1 year ago. [place], [place] EXAMINATION: ONE SUPINE XRAY VIEW(S) OF [...] wing, lead overlying the inferior right sacrum. [place], [place] Souleymane, Mhpn Incoming Radiant Results From madvertisee/Pacs - 02/24/2019 3:08 PM EDT EXAMINATION: ONE [...] this level on CT 1 year ago. [place], [place] Urinalysis with Microscopico n 01-06-2019 Amorphous, UA NOT REPORTED None [facility], [place] Bacteria, UA NOT REPORTED None [place], [place] Bilirubin Urine Negative NEGATIVE [place], [place] Casts UA NOT REPORTED /LPF [place], [place] Color, UA YELLOW YELLOW [place], [place] Crystals UA NOT REPORTED None /HPF [facility] [place] Epithelial Cells UA 0 TO 2 [place], [place] Glucose, Ur Negative NEGATIVE [place] Interpretation and review of laboratory results Abnormal [place], [place] Ketones Ql (U) Negative NEGATIVE [place], [place] Leukocyte esterase Test strip Ql (U) SMALL Abnormal NEGATIVE [place], [place] Mucus, UA NOT REPORTED None [place], [place] Nitrite, Urine Negative NEGATIVE [place], [place] Other Observations UA NOT REPORTED NOT REQ. [place] pH, UA 5.5 [place], [place] Protein (U) [Mass/Vol] Negative NEGATIVE [place] RBC (U) [#/Vol] 0 TO 2 [facility] [place], [place] Renal Epithelial, Urine NOT REPORTED 0 /HPF [facility], [place] Specific [place], UA 1.020 [facility] [place], [place] Trichomonas, UA NOT REPORTED None [facility] [place], [place] Turbidity UA CLEAR CLEAR [facility], [place] Urinalysis Comments NOT REPORTED [facility] [place], [place] Urine Hgb Negative NEGATIVE [facility], [place] Urobilinogen, Urine Normal Normal [facility], [place] WBC, UA 2 TO 5 [facility] [place], [place] Yeast, UA NOT REPORTED None [facility] [place], [place] - [facility], [place] Vital Signs Date Time Vital Sign Value Performing Clinician Facility 03-23-2023 19:08-0400 Heart rate 77 /min Dee Mireles COCOA ROOM OPERATOR-HEEL TOP LIFT SPLITTER [facility] 03-23-2023 10:41-0400 Body height 154.9 cm Dee Mireles COCOA ROOM OPERATOR-HEEL TOP LIFT SPLITTER [facility] 03-23-2023 10:41-0400 Body mass index (BMI) [Ratio] 30.04 kg/m2 Dee Mireles COCOA ROOM OPERATOR-HEEL TOP LIFT SPLITTER Work Phone: [employer] 03-23-2023 10:41-0400 Body temperature 98.01 [degF] Dee Mireles COCOA ROOM OPERATOR-HEEL TOP LIFT SPLITTER Work Phone: [employer] 03-23-2023 10:41-0400 Body weight 72.12 kg Dee Mireles COCOA ROOM OPERATOR-HEEL TOP LIFT SPLITTER [facility] 03-23-2023 10:41-0400 Diastolic blood pressure 67 mm[Hg] Dee Mireles COCOA ROOM OPERATOR-HEEL TOP LIFT SPLITTER Work Phone: [employer] 03-23-2023 10:41-0400 Heart rate 79 /min Dee Mireles COCOA ROOM OPERATOR-HEEL TOP LIFT SPLITTER Work Phone: [employer] 03-23-2023 10:41-0400 Respiratory rate 12 /min Dee Mireles COCOA ROOM OPERATOR-HEEL TOP LIFT SPLITTER Work Phone: [employer] 03-23-2023 10:41-0400 SaO2% (BldA) [Mass fraction] 100 % Dee Mireles COCOA ROOM OPERATOR-HEEL TOP LIFT SPLITTER Work Phone: [facility] 03-23-2023 10:41-0400 Systolic blood pressure 123 mm[Hg] Dee Mireles COCOA ROOM OPERATOR-HEEL TOP LIFT SPLITTER Work Phone: [facility] 11-10-2022 09:57-0400 Diastolic blood pressure 72 mm[Hg] Gerry Jerry [facility] 11-10-2022 09:57-0400 Heart rate 68 /min Gerry Jerry [facility] 11-10-2022 09:57-0400 Mean blood pressure 98 mm[Hg] Gerry Jerry [facility] 11-10-2022 09:57-0400 Respiratory rate 16 /min Gerry Jerry [facility] 11-10-2022 09:57-0400 Systolic blood pressure 150 mm[Hg] Gerry Jerry [facility] 06-16-2022 13:42-0500 Diastolic blood pressure 75 mm[Hg] Janie Henning [facility] 06-16-2022 13:42-0500 Heart rate 65 /min Janie Henning [facility] 06-16-2022 13:42-0500 Mean blood pressure 97 mm[Hg] Janie Henning [facility] 06-16-2022 13:42-0500 Respiratory rate 18 /min Janie Henning [facility] 06-16-2022 13:42-0500 Systolic blood pressure 140 mm[Hg] Janie Henning [facility] 05-19-2022 12:15-0500 Diastolic blood pressure 82 mm[Hg] Geri Vergara [facility] 05-19-2022 12:15-0500 Heart rate 62 /min Geri Vergara [facility] 05-19-2022 12:15-0500 Mean blood pressure 95 mm[Hg] Geri Vergara [facility] 05-19-2022 12:15-0500 Respiratory rate 18 /min Geri Vergara [facility] 05-19-2022 12:15-0500 Systolic blood pressure 120 mm[Hg] Geri Vergara [facility] 08-05-2021 16:30-0400 Diastolic blood pressure 76 mm[Hg] Sandra Alvarenga MD Work Phone: [facility] 08-05-2021 16:30-0400 Heart rate 71 /min Sandra Alvarenga MD Work Phone: [facility] 08-05-2021 16:30-0400 Respiratory rate 18 /min Sandra Alvarenga MD Work Phone: [facility] 08-05-2021 16:30-0400 SaO2% (BldA) [Mass fraction] 98 % Sandra Alvarenga MD Work Phone: [facility] 08-05-2021 16:30-0400 Systolic blood pressure 148 mm[Hg] Sandra Alvarenga MD Work Phone: [facility] 08-05-2021 15:50-0400 Body temperature 98.1 [degF] Sandra Alvarenga MD Work Phone: [facility] 08-05-2021 12:44-0400 Body height 154.9 cm Sandra Alvarenga MD Work Phone: [facility] 08-05-2021 12:44-0400 Body mass index (BMI) [Ratio] 30.12 kg/m2 Sandra Alvarenga MD Work Phone: [facility] [employer] 08-05-2021 12:44-0400 Body weight 72.3 kg Sandra Alvarenga MD Work Phone: [employer] 07-23-2021 09:04-0500 Body height 154.9 cm Sandra Alvarenga MD Work Phone: [employer] 07-23-2021 09:04-0500 Body mass index (BMI) [Ratio] 30.89 kg/m2 Sandra Alvarenga MD Work Phone: [employer] 07-23-2021 09:04-0500 Body temperature 97.11 [degF] Sandra Alvarenga MD Work Phone: [employer] 07-23-2021 09:04-0500 Body weight 74.16 kg Sandra Alvarenga MD Work Phone: [employer] 07-23-2021 09:04-0500 Diastolic blood pressure 73 mm[Hg] Sandra Alvarenga MD Work Phone: [employer] 07-23-2021 09:04-0500 Heart rate 77 /min Sandra Alvarenga MD Work Phone: [employer] 07-23-2021 09:04-0500 Respiratory rate 20 /min Sandra Alvarenga MD Work Phone: [employer] 07-23-2021 09:04-0500 SaO2% (BldA) [Mass fraction] 99 % Sandra Alvarenga MD Work Phone: [employer] 07-23-2021 09:04-0500 Systolic blood pressure 151 mm[Hg] Sandra Alvarenga MD Work Phone: [employer] 04-10-2020 16:39-0500 BMI (Body Mass Index) 33.25 kg/m2 Vladimir Je[facility] hospitalMedServeAlemanGenieMD, LLC 04-10-2020 16:39-0500 Body weight 79.83 kg [employer] 04-10-2020 16:39-0500 BP Diastolic 76 mm[Hg] [facility] 04-10-2020 16:39-0500 BP Systolic 130 mm[Hg] Vladimir Aleman [employer] 04-10-2020 16:39-0500 BSA (Body Surface Area) 1.85 m2 Vladimir Aleman [employer] 04-10-2020 16:39-0500 Height 154.94 cm Vladimir MartínezImmco Diagn[facility] 04-10-2020 16:39-0500 Pulse (Heart Rate) 88 /min Vladimir Lezamancsadia Funez [employer] [facility] 01-09-2020 16:05-0400 BMI (Body Mass Index) 33.82 kg/m2 Vladimir MartínezGenieMD, LLC 01-09-2020 16:05-0400 Body Temperature 98.4 [degF] Vladimir [facility] [employer] [facility] 01-09-2020 16:05-0400 Body weight 81.19 kg Vladimir MartínezImmco Diagnostics Inc 01-09-2020 16:05-0400 BP Diastolic 62 mm[Hg] Vladimir MartínezImmco Diagnostics Inc 01-09-2020 16:05-0400 BP Systolic 114 mm[Hg] Vladimir MartínezImm[facility] 01-09-2020 16:05-0400 BSA (Body Surface Area) 1.87 m2 Vladimir MartínezImmco Diagnostics Inc 01-09-2020 16:05-0400 Height 154.94 cm Vladimir Aleman [employer] 01-09-2020 16:05-0400 Pulse (Heart Rate) 76 /min Vladimir Lezamancsadia Funez Tribe[employer] [facility] 07-11-2019 16:08-0500 BMI (Body Mass Index) 35.01 kg/m2 Vladimir Aleman [employer] 07-11-2019 16:08-0500 Body Temperature 98.7 [degF] Vladimir Mart[employer]Woowa [employer] 07-11-2019 16:08-0500 Body weight 84.06 kg Vladimir MartínezGenieMD, LLC 07-11-2019 16:08-0500 BP Diastolic 72 mm[Hg] Vladimir ADARTISncGenieMD, LLC 07-11-2019 16:08-0500 BP Systolic 126 mm[Hg] Vladimir ChristopherMedServeLaemanGenieMD, LLC 07-11-2019 16:08-0500 BSA (Body Surface Area) 1.9 m2 Vladimir Celltick TechnologieskelbyMedServeAlemanGenieMD, LLC 07-11-2019 16:08-0500 Height 154.94 cm Vladimir ADARTISncGenieMD, LLC 07-11-2019 16:08-0500 Pulse (Heart Rate) 72 /min Vladimir [employer]Get[employer] 11-29-2018 18:22-0400 BMI (Body Mass Index) 34.39 kg/m2 Vladimir ChristopherMedServeAlemanGenieMD, LLC 11-29-2018 18:22-0400 Body Temperature 97.9 [degF] Vladimir ChristopherPopset AlemanWoowa [employer] 11-29-2018 18:22-0400 Body weight 82.56 kg Vladimir ADARTISncGenieMD, LLC 11-29-2018 18:22-0400 BP Diastolic 70 mm[Hg] [employer] 11-29-2018 18:22-0400 BP Systolic 140 mm[Hg] Vladimir Christopherkatherine MartínezAlemanImmco Diagnostics Inc 11-29-2018 18:22-0400 BSA (Body Surface Area) 1.88 m2 Vladimir Arshadzhiwo AlemanImmco Diagnostics Inc 11-29-2018 18:22-0400 BSA (Body Surface Area) 1.89 m2 Vladimir ADARTISncGenieMD, LLC 11-29-2018 18:22-0400 Height 154.94 cm Vladimir [employer] 11-29-2018 18:22-0400 Pulse (Heart Rate) 80 /min Vladimir [employer] 05-31-2018 17:44-0500 BMI (Body Mass Index) 32.94 kg/m2 [employer] 05-31-2018 17:44-0500 Body Temperature 98.2 [degF] Vladimir [employer]owa [employer] 05-31-2018 17:44-0500 Body weight 79.07 kg Vladimir [employer] 05-31-2018 17:44-0500 BP Diastolic 68 mm[Hg] [employer] 05-31-2018 17:44-0500 BP Systolic 118 mm[Hg] [employer] 05-31-2018 17:44-0500 BSA (Body Surface Area) 1.84 m2 Vladimir [employer] 05-31-2018 17:44-0500 Height 154.94 cm [employer] 05-31-2018 17:44-0500 Pulse (Heart Rate) 80 /min [employer] 02-01-2018 17:15-0400 BMI (Body Mass Index) 32.31 kg/m2 Vladimir MartínezGenieMD, LLC 02-01-2018 17:15-0400 Body Temperature 98.5 [degF] Vladimir MartínezW[employer] 02-01-2018 17:15-0400 Body weight 77.57 kg Vladimir ArshadBoxeencGenieMD, LLC 02-01-2018 17:15-0400 BP Diastolic 88 mm[Hg] [employer] 02-01-2018 17:15-0400 BP Systolic 134 mm[Hg] [employer] 02-01-2018 17:15-0400 BSA (Body Surface Area) 1.83 m2 Vladimir ADARTISncGenieMD, LLC 02-01-2018 17:15-0400 Height 154.94 cm [employer] 02-01-2018 17:15-0400 Pulse (Heart Rate) 76 /min Vladimir Aleman [employer] 07-28-2017 17:14-0500 BMI (Body Mass Index) 32.31 kg/m2 Vladimir ADARTISncGenieMD, LLC 07-28-2017 17:14-0500 Body Temperature 99.2 [degF] [employer] 07-28-2017 17:14-0500 Body weight 77.57 kg [employer] 07-28-2017 17:14-0500 BP Diastolic 78 mm[Hg] [employer] 07-28-2017 17:14-0500 BP Systolic 128 mm[Hg] Vladimir [employer] 07-28-2017 17:14-0500 BSA (Body Surface Area) 1.83 m2 Vladimir [employer] 07-28-2017 17:14-0500 Height 154.94 cm Vladimir [employer] 07-28-2017 17:14-0500 Pulse (Heart Rate) 68 /min [employer] Aleman[employer]View 11-11-2016 18:39-0400 BMI (Body Mass Index) 34.11 kg/m2 [employer] 11-11-2016 18:39-0400 Body Temperature 98.1 [degF] Vladimir ADARTISncWoowa Bros 11-11-2016 18:39-0400 Body weight 82.56 kg [employer] 11-11-2016 18:39-0400 BP Diastolic 70 mm[Hg] [employer] 11-11-2016 18:39-0400 BP Systolic 138 mm[Hg] [employer] 11-11-2016 18:39-0400 BSA (Body Surface Area) 1.89 m2 [employer] 11-11-2016 18:39-0400 Height 155.57 cm [employer] 11-11-2016 18:39-0400 Pulse (Heart Rate) 88 /min [employer] AlemanBView 05-13-2016 18:05-0500 BMI (Body Mass Index) 34.48 kg/m2 Vladimir MartínezGenieMD, LLC 05-13-2016 18:05-0500 Body Temperature 98.4 [degF] Vladimir MartínezW[employer]owa [employer] 05-13-2016 18:05-0500 Body weight 83.46 kg Vladimir ChristopherMedServeAlemanGenieMD, LLC 05-13-2016 18:05-0500 BP Diastolic 64 mm[Hg] Vladimir ADARTISncGenieMD, LLC 05-13-2016 18:05-0500 BP Systolic 118 mm[Hg] Vladimir [employer] 05-13-2016 18:05-0500 BSA (Body Surface Area) 1.9 m2 [employer] 05-13-2016 18:05-0500 Height 155.57 cm Vladimir ADARTISncGenieMD, LLC 05-13-2016 18:05-0500 Pulse (Heart Rate) 92 /min Vladimir Celltick Technologiesxiomara sanchezGetApp 08-13-2015 18:22-0400 BMI (Body Mass Index) 33.45 kg/m2 Vladimir ADARTISncGenieMD, LLC 08-13-2015 18:22-0400 Body Temperature 98 [degF] Vladimir [employer] Ale[employer] 08-13-2015 18:22-0400 Body weight 80.97 kg Vladimir [employer] 08-13-2015 18:22-0400 BP Diastolic 70 mm[Hg] [employer] 08-13-2015 18:22-0400 BP Systolic 124 mm[Hg] [employer] 08-13-2015 18:22-0400 BSA (Body Surface Area) 1.87 m2 Vladimir Aleman [employer] 08-13-2015 18:220400 Height 155.57 cm Vladimir MartínezGenieMD, LLC 08-13-2015 18:22-0400 Pulse (Heart Rate) 76 /min Vladimir Funez [employer] 11-27-2014 18:35-0400 BMI (Body Mass Index) 33.93 kg/m2 Vladimir [employer] AlemanGenieMD, LLC 11-27-2014 18:35-0400 Body Temperature 97.3 [degF] Vladimir Phillips [employer] 11-27-2014 18:35-0400 Body weight 83.46 kg Vladimir MartínezGenieMD, LLC 11-27-2014 18:35-0400 BP Diastolic 66 mm[Hg] Vladimir [employer] AlemanGenieMD, LLC 11-27-2014 18:35-0400 BP Systolic 108 mm[Hg] Vladimir MartínezGenieMD, LLC 11-27-2014 18:35-0400 BSA (Body Surface Area) 1.91 m2 Vladimir MartínezGenieMD, LLC 11-27-2014 18:35-0400 Height 156.84 cm Vladimir Buzzoolekatherine MartínezAlemanGenieMD, LLC 11-27-2014 18:35-0400 Pulse (Heart Rate) 88 /min Vladimir Funez [employer] 05-29-2014 18:26-0500 BMI (Body Mass Index) 37.61 kg/m2 Vladimir ADARTISncGenieMD, LLC 05-29-2014 18:26-0500 Body Temperature 97.5 [degF] Vladimir Phillips [employer] 05-29-2014 18:26-0500 Body weight 92.53 kg Vladimir Aleman [employer] 05-29-2014 18:26-0500 BP Diastolic 72 mm[Hg] Vladimir MartínezGenieMD, LLC 05-29-2014 18:26-0500 BP Systolic 128 mm[Hg] Vladimir MartínezGenieMD, LLC 05-29-2014 18:26-0500 BSA (Body Surface Area) 2.01 m2 Vladimir ChristopherMedServeAlemanGenieMD, LLC 05-29-2014 18:26-0500 Height 156.84 cm Vladimir Celltick TechnologieskelbyMedServeAlemanGenieMD, LLC 05-29-2014 18:26-0500 Pulse (Heart Rate) 66 /min Vladimir sanchezGetApp 06-12-2013 16:34-0500 BMI (Body Mass Index) 34.02 kg/m2 Vladimir MartínezGenieMD, LLC 06-12-2013 16:34-0500 Body Temperature 98.6 [degF] Vladimir Aleman [employer] 06-12-2013 16:34-0500 Body weight 83.69 kg Vladimir ChristopherMedServeAlemanGenieMD, LLC 06-12-2013 16:34-0500 BP Diastolic 64 mm[Hg] Vladimir ChristopherMedServeAlemanGenieMD, LLC 06-12-2013 16:34-0500 BP Systolic 112 mm[Hg] [employer] 06-12-2013 16:34-0500 BSA (Body Surface Area) 1.91 m2 Vladimir [employer] 06-12-2013 16:34-0500 Height 156.84 cm Vladimir [employer] 06-12-2013 16:34-0500 Pulse (Heart Rate) 76 /min Vladimir Arshadzhiwo [employer]View 12-12-2012 18:33-0400 BMI (Body Mass Index) 32.4 kg/m2 Vladimir [employer] 12-12-2012 18:33-0400 Body Temperature 97.6 [degF] Vladimir [employer] 12-12-2012 18:33-0400 Body weight 79.07 kg [employer] 12-12-2012 18:33-0400 BP Diastolic 80 mm[Hg] [employer] 12-12-2012 18:33-0400 BP Systolic 140 mm[Hg] [employer] 12-12-2012 18:33-0400 BSA (Body Surface Area) 1.85 m2 [employer] 12-12-2012 18:33-0400 Height 156.21 cm Vladimir [employer] 12-12-2012 18:33-0400 Pulse (Heart Rate) 76 /min Vladimir ADARTISncBView Encounters Encounter Date Encounter Type Care Provider Facility Start: 06-17-2023 End: 06-18-2023 ambulatory UNKNOWN PROVIDER Facility:[facility] Start: 06-17-2023 End: 06-17-2023 Patient encounter procedure Geri Vergara MD Work Phone: [facility] Orthopedic Spine Comment on above: Cervical spondylosis with myelopathy (Primary Dx) Start: 06-17-2023 End: 06-17-2023 Subsequent hospital visit by physician Op Xray [address] [facility] Radiology Comment on above: Cervical spondylosis with myelopathy Start: 05-04-2023 Telephone encounter Geri Vergara MD Work Phone: [facility] Comment on above: Health Information Start: 04-22-2023 End: 04-22-2023 ambulatory UNKNOWN PROVIDER Facility:[facility] Start: 04-22-2023 End: 04-22-2023 Patient encounter procedure Ortho Spine Rn [facility] Comment on above: Hx of cervical spine surgery (Primary Dx) Start: 04-09-2023 Telephone encounter Geri Vergara MD Work Phone: [facility] Comment on above: Health Information Start: 04-01-2023 Evaluation and manag ement of inpatient UNKNOWN PROVIDER Facility:[facility] Start: 03-31-2023 End: 04-03-2023 Evaluation and management of inpatient IP PHYSICAL THERAPY SERVICE REQUEST Facility:[facility] Start: 03-31-2023 End: 04-01-2023 ambulatory UNKNOWN PROVIDER Facility:[facility] Start: 03-31-2023 End: 03-31-2023 Subsequent hospital visit by physician Geri Vergara MD Work Phone: [facility] Radiology Comment on above: Arrived Start: 03-25-2023 End: 03-26-2023 ambulatory Cooper Eller MD Facility:[facility] Start: 03-23-2023 End: 03-23-2023 ambulatory UNKNOWN PROVIDER Facility:[facility] Start: 03-23-2023 Encounter for other preprocedural examination UNKNOWN PROVIDER [facility] Start: 03-23-2023 End: 03-23-2023 ambulatory UNKNOWN PROVIDER Facility:[facility] Start: 03-23-2023 End: 03-23-2023 Patient encounter procedure Dee Mireles COCOA ROOM OPERATOR-HEEL TOP LIFT SPLITTER Work Phone: [facility] Pre Surgical Evaluation Comment on above: Preop [...] 03-23-2023 End: 03-23-2023 Patient encounter status Dee Mireles COCOA ROOM OPERATOR-HEEL TOP LIFT SPLITTER Work Phone: [facility] Work Phone: Start: 03-23-2023 End: 03-24-2023 ambulatory UNKNOWN PROVIDER Facility:[facility] Start: 03-23-2023 End: 03-23-2023 Office outpatient visit 25 minutes Geri Vergara MD Work Phone: [facility] Comment on above: Cervical spondylosis with myelopathy (Primary Dx) Start: 03-23-2023 End: 03-23-2023 Subsequent hospital visit by physician Ip/Op Ct Scan Main 2(Edge) [facility] Radiology CT Comment on above: Cervical spondylosis with myelopathy Start: 03-16-2023 End: 03-17-2023 ambulatory Cooper Eller MD Facility:[facility] Start: 02-15-2023 Admission to [facility] Geri Vergara MD Work Phone: [facility] Main OR Start: 02-11-2023 End: 02-11-2023 ambulatory UNKNOWN PROVIDER Facility:[facility] Start: 02-11-2023 End: 02-11-2023 Office outpatient visit 15 minutes Geri Vergara MD Work Phone: [facility] Comment on above: Cervical spondylosis with myelopathy (Primary Dx) Start: 01-30-2023 Letter encounter Geri Vergara MD Work Phone: [facility] Start: 12-24-2022 End: 12-24-2022 ambulatory UNKNOWN PROVIDER Facility:[facility] Start: 12-24-2022 End: 12-24-2022 Office outpatient visit 15 minutes Geri Vergara MD Work Phone: [facility] Comment on above: Cervical spondylosis with myelopathy (Primary Dx) Start: 11-23-2022 ambulatory LAKISHA LAKISHA Adam~06 6 BERYL CORDOBA Facility:[facility] Start: 11-23-2022 ambulatory LAKISHA Medina~06 6 BERYL CORDOBA [facility] Start: 11-10-2022 End: 11-11-2022 ambulatory Geri Vergara Facility:[facility] Start: 11-10-2022 End: 11-10-2022 Pain Management Gerry Jerry [facility] Start: 10-29-2022 End: 11-02-2022 ambulatory UNKNOWN PROVIDER Facility:[facility] Start: 10-29-2022 End: 11-02-2022 Office outpatient visit 15 minutes Geri Vergara MD Work Phone: [facility] Comment on above: Cervical spondylosis with myelopathy (Primary Dx) Start: 10-28-2022 ambulatory LAKISHA CORDOBA Facility:[facility] Start: 10-27-2022 Letter encounter Geri Vergara MD Work Phone: [facility] Start: 10-26-2022 End: 10-27-2022 Orders Only Geri Vergara MD Work Phone: [facility] Comment on above: Myelopathy (HCC) Start: 2022 End: 10-21-2022 ambulatory Cooper Eller MD Facility:[facility] Start: 10-16-2022 End: 10-17-2022 ambulatory Geri Vergara Facility:[facility] Start: 10-16-2022 End: 10-16-2022 Patient encounter procedure Geri Vergara [facility] Start: 10-06-2022 End: 10-08-2022 ambulatory UNKNOWN PROVIDER Facility:[facility] Start: 09-30-2022 End: 10-01-2022 ambulatory Cooper Eller MD Facility:[facility] Start: 09-28-2022 End: 09-29-[address] COOPER ELLER Facility: Start: 09-24-2022 End: 09-25-2022 ambulatory UNKNOWN PROVIDER Facility:[facility] Start: 09-24-2022 End: 09-24-2022 Subsequent hospital visit by physician Courtney [facility] Radiology Comment on above: Spinal stenosis of l umbar region, unspecified whether neurogenic claudication present Start: 09-23-2022 Orders Only Geri farias MD Work Phone: [facility] Start: 07-30-2022 End: 07-31-[address] KELLY TIAN . Facility: Start: 07-07-2022 End: 07-07-[address] KELLY TIAN . Facility: Start: 06-25-2022 End: 06-26-[address] KELLY TIAN . Facility: Start: 06-16-2022 End: 06-17-2022 ambulatory Janie Henning Facility:[facility] Start: 06-16-2022 End: 06-16-2022 Patient encounter procedure Janie Henning [facility] Start: 06-09-2022 End: 06-10-2022 ambulatory Geri Vergara Facility:[facility] Start: 06-09-2022 End: 06-09-2022 Patient encounter procedure Geri A Himanshu [facility] Start: 05-19-2022 End: 05-20-2022 ambulatory Geri Vergara Facility:[facility] Start: 05-19-2022 End: 05-19-2022 Patient encounter procedure Geri Frank Himanshu [facility] Start: 05-07-2022 End: 05-08-[address] KELLY TIAN . Facility: Start: 05-01-2022 End: 05-02-2022 ambulatory ANDREW CALLEJAS . Facility: Start: 04-22-2022 End: 04-22-[address] KELLY TIAN . Facility:[facility] Start: 04-22-2022 End: 04-23-[address] COOPER ELLER Facility:[facility]1 Start: 04-21-2022 End: 04-22-2022 ambulatory Cooper Eller MD Facility:[facility] Start: 03-31-2022 End: 03-31-[address] KELLY TIAN . Facility:[facility]1 Start: 03-30-2022 End: 03-31-2022 ambulatory Cooper Eller MD Facility:[facility] Start: 03-24-2022 End: 03-25-2022 ambulatory [facility] Facility:[facility]1 Start: 03-18-2022 End: 03-19-[address] KELLY TIAN . Facility:[facility]1 Start: 03-10-2022 End: 03-11-[address] COOPER ELLER Facility:[facility]1 Start: 03-03-2022 End: 03-03-[address] KELLY TIAN . Facility:[facility] Start: 02-19-2022 End: 02-20-[address] KELLY TIAN . Facility:[facility] Start: 01-20-2022 End: 01-21-2022 ambulatory COOPER ELLER [facility] Start: 01-20-2022 End: 01-20-2022 Subsequent hospital visit by physician Cooper Eller MD Work Phone: [facility] Comment on above: Urinary urgency; Frequency of micturition Start: 12-25-2021 End: 12-26-2021 ambulatory Nikko Barbosa Facility:[facility]1 Start: 11-19-2021 End: 11-20-[address] KELLY TIAN . Facility:[facility] Start: 11-18-2021 End: 11-19-2021 ambulatory [facility] Start: 11-18-2021 End: 11-18-2021 Subsequent hospital visit by physician Cooper Eller MD Work Phone: [facility] Comment on above: Urinary urgency Start: 10-14-2021 End: 10-14-[address] KELLY TIAN . Facility:[facility]1 Start: 10-09-2021 End: 10-10-[address] KELLY TIAN . Facility:[facility] Start: 08-05-2021 End: 08-05-2021 ambulatory COOPER ELLER [facility] Start: 08-05-2021 End: 08-05-2021 Subsequent hospital visit by physician Sandra Alvarenga MD Work Phone: [facility] Start: 07-23-2021 End: 07-28-2021 ambulatory SANDRA LANDEROSZHENG [facility] Start: 07-23-2021 End: 07-27-2021 Patient encounter status Sandra Alvarenga MD Work Phone: [facility] Start: 07-23-2021 End: 07-27-2021 Subsequent hospital visit by physician Sandra Alvarenga MD Work Phone: [facility] Comment on above: Preop testing Start: 04-07-2021 End: 04-08-2021 ambulatory COOPER ELLER [facility] Start: 04-10-2020 Office outpatient vi sit 15 minutes Vladimir Greco Other [facility] Start: 04-10-2020 Office Services Vladimir murphy Other [facility] Office Start: 01-09-2020 Office outpatient vi sit 15 minutes Vladimir Greco Other [facility] Office Start: 2019 End: 2019 Subsequent hospital visit by physician Cooper [facility] Comment on above: Mixed incontinence Start: 07-11-2019 Office outpatient vi sit 15 minutes Vladimir Greco Other [facility] Office Start: 02-24-2019 End: 02-26-2019 Subsequent hospital visit by physician Madhuri Fair[address] Dr Room 2 [facility] Radiology Comment on above: Arrived Renal stones Start: 01-06-2019 End: 01-06-2019 Subsequent hospital visit by physician Cooper [facility] Comment on above: Mixed incontinence; OAB (overactive bladder); Frequency of urination; Urgency of urination Start: 11-29-2018 Office outpatient vi sit 15 minutes Vladimir Greco Other [facility] Office Start: 05-31-2018 Office outpatient vi sit 15 minutes Vladimir L Heacock Other [facility] Office Start: 02-01-2018 Office outpatient vi sit 15 minutes Vladimir L Heacock Other [facility] Office Start: 07-28-2017 Office outpatient vi sit 15 minutes Vladimir L Heacock Other [facility] Office Start: 12-03-2016 Procedure Vladimir L Jeancarlosaco ck Other [facility] Start: 11-11-2016 Office outpatient vi sit 15 minutes Vladimir L Heacock Other [facility] Start: 05-13-2016 Office outpatient vi sit 15 minutes Vladimir L Heacock Other [facility] Office Start: 09-26-2015 Procedure Vladimir L Heaco ck Other [facility] Start: 08-13-2015 Office outpatient vi sit 15 minutes Vladimir L Heacock Other [facility] Office Start: 11-27-2014 Office outpatient vi sit 15 minutes Vladimir L Heacock Other [facility] Start: 05-29-2014 Office Services Vladimir L Heaco ck Other [facility] Office Start: 06-12-2013 Office Services Vladimir L Heaco ck Other [facility] Office Start: 12-12-2012 Office Services Vladimir L Heaco ck Other [facility] Office Procedures Date Procedure Procedure Detail Performing Clinician Start: 06-17-2023 Radex spine cervical 2 or 3 views Geri Vergara MD Work Phone: Start: 03-31-2023 Fluoroscopy up to 1 hour physician/qhp time Tammy Ridley MD Work Phone: Start: 03-23-2023 End: 03-23-2023 Blood typing serologic abo Dee Funez es COCOA ROOM OPERATOR-HEEL TOP LIFT SPLITTER Work Phone: Start: 03-23-2023 Ecg routine ecg w/le ast 12 lds trcg only w/o i&r To Be Assigned Start: 03-23-2023 Blood typing, ABO, R ho(D) and RBC antibody screening Dee Mireles COCOA ROOM OPERATOR-HEEL TOP LIFT SPLITTER Work Phone: Start: 03-23-2023 End: 03-23-2023 Thromboplastin time partial plasma/whole blood Dee Mireles COCOA ROOM OPERATOR-HEEL TOP LIFT SPLITTER Work Phone: Start: 03-23-2023 Ct cervical spine w/ o contrast material Geri Vergara MD Work Phone: Start: 10-26-2022 MR NEURO IMAGE IMPORT Dayanna Vergara MD Work Phone: Start: 09-24-2022 MR NEURO IMAGE IMPORT Dayanna Vergara MD Work Phone: Start: 01-20-2022 Urnls dip stick/tabl et reagent auto microscopy Alexandra Frye PA-C Work Phone: Start: 11-18-2021 Urnls dip stick/tabl et reagent auto microscopy Alexandra Frye PA-C Work Phone: Start: 08-05-2021 Electrical stimulati on of bladder Gerry Jerry Start: 07-23-2021 Ecg routine ecg w/le ast 12 lds i&r only Alexandra Frye PA-C Work Phone: Start: 07-23-2021 Basic metabolic pane l calcium total Alexandra THOMPSON-C Work Phone: Start: 07-23-2021 IMMATURE PLATELET FRACTION Alexandra Frye PA-C Work Phone: Start: 10-08-2020 Complete blood count Ro susie Greco Start: 10-08-2020 Comprehensive metabo lic panel Vladimir Greco Start: 07-11-2020 Complete blood count Ro susie Greco Start: 07-11-2020 Comprehensive metabo lic panel Vladimir Greco Start: 04-10-2020 Current Medications Verified MIPS Vladimir Greco Start: 04-10-2020 Doc meds verified w/ pt or re Vladimir Greco Start: 04-01-2020 Complete blood count Ro susie Arshadxiomara Start: 04-01-2020 Comprehensive metabo lic panel Vladimir arriaga Fannie Start: 01-09-2020 Complete blood count Ro susie Arshadxiomara Start: 01-09-2020 Current Medications Verified MIPS Vladimir arriaga Fannie Start: 01-09-2020 Doc meds verified w/ pt or re Vladimir Greco Start: 01-09-2020 Dual energy X-ray absorptiometry Vladimir bart Greco Start: 01-02-2020 Complete blood count Ro susie arriaga Fannie Start: 01-02-2020 Comprehensive metabo lic panel Vladimir bart Greco Start: 2019 Urnls dip stick/tabl et reagent auto microscopy Prashant Hernandez Work Phone: Start: 08-09-2019 Complete blood count Ro susie arriaga Fannie Start: 08-09-2019 Comprehensive metabo lic panel Vladimir bart Greco Start: 07-11-2019 Complete blood count Ro susie arriaga Fannie Start: 07-11-2019 Current Medications Verified MIPS Vladimir Greco Start: 07-11-2019 Doc meds verified w/ pt or re Vladimir Greco Start: 05-31-2019 Complete blood count Ro susie arriaga Fannie Start: 05-31-2019 Comprehensive metabo lic panel Vladimir Greco Start: 03-01-2019 Blood count complete auto&auto difrntl wbc Vladimir Greco Start: 03-01-2019 Complete blood count Ro susie arriaga Fannie Start: 03-01-2019 Comprehensive metabo lic panel Vladimir Greco Start: 02-24-2019 Radiologic exam abdo men 1 view Prashant Hernandez Work Phone: Start: 01-06-2019 Urnls dip stick/tabl et reagent auto microscopy Prashant Hernandez Work Phone: Start: 11-29-2018 Current Medications Verified MIPS Vladimir Greco Start: 11-29-2018 Doc meds verified w/ pt or re Vladimir Greco Start: 11-22-2018 Blood count complete auto&auto difrntl wbc Vladimir Greco Start: 11-22-2018 Complete blood count Ro susie arriaga Fannie Start: 11-22-2018 Comprehensive metabo lic panel Vladimir Greco Start: 08-29-2018 Blood count complete auto&auto difrntl wbc Vladimir Greco Start: 08-29-2018 Complete blood count Ro susie Arshadxiomara Start: 08-29-2018 Comprehensive metabo lic panel Vladimir Greco Start: 08-23-2018 Blood count complete auto&auto difrntl wbc Vladimir Greco Start: 08-23-2018 Complete blood count Ro susie arriaga Fannie Start: 08-23-2018 Comprehensive metabo lic panel Vladimir Greco Start: 06-03-2018 Blood count complete auto&auto difrntl wbc Vladimir Greco Start: 06-03-2018 Complete blood count Ro susie arriaga Fannie Start: 05-31-2018 Current Medications Verified MIPS Vladimir Greco Start: 05-31-2018 Doc meds verified w/ pt or re Vladimir Greco Start: 05-24-2018 Blood count complete auto&auto difrntl wbc Vladimir Greco Start: 05-24-2018 Complete blood count Ro susie arriaga Fannie Start: 05-24-2018 Comprehensive metabo lic panel Vladimir Greco Start: 02-01-2018 Current Medications Verified MIPS Vladimir Greco Start: 01-28-2018 Blood count complete auto&auto difrntl wbc Vladimir Greco Start: 01-28-2018 Complete blood count Ro susie arriaga Fannie Start: 01-28-2018 Comprehensive metabo lic panel Vladimir Greco Start: 01-24-2018 Blood count complete auto&auto difrntl wbc Vladimir Greco Start: 01-24-2018 Complete blood count Ro susie arriaga Fannie Start: 01-24-2018 Comprehensive metabo lic panel Vladimir Greco Start: 07-28-2017 Current Medications Verified MIPS Vladimir Greco Start: 07-19-2017 Blood count complete auto&auto difrntl wbc Vladimir Greco Start: 07-19-2017 Complete blood count Ro susie bart Greco Start: 07-19-2017 Comprehensive metabo lic panel Vladimir Greco Start: 05-13-2017 Blood count complete auto&auto difrntl wbc Vladimir Greco Start: 05-13-2017 Complete blood count Ro susie arriaga Fannie Start: 05-13-2017 Comprehensive metabo lic panel Vladimir Greco Start: 12-03-2016 Siddhartha garces MD Work Phone: Start: 11-11-2016 Blood count complete auto&auto difrntl wbc Vladimir Jeancarlosxiomara Start: 11-11-2016 Colon ca scrn not hi rsk ind Vladimir Greco Start: 11-11-2016 Complete blood count Ro susie Arshadxiomara Start: 11-11-2016 Comprehensive metabo lic panel Vladimir Greco Start: 11-11-2016 Screening colonoscopy Candace arriaga Fannie Start: 11-04-2016 Blood count complete auto&auto difrntl wbc Vladimir Greco Start: 11-04-2016 Complete blood count Ro susie Arshadxiomara Start: 11-04-2016 Comprehensive metabo lic panel Vladimir Greco Start: 05-13-2016 Colon ca scrn not hi rsk ind Vladimir Greco Start: 05-13-2016 Screening colonoscopy R alvarado arriaga Fannie Start: 02-13-2016 Blood count complete auto&auto difrntl wbc Vladimir Greco Start: 02-13-2016 Complete blood count Ro susie arriaga Fannie Start: 02-10-2016 Blood count complete auto&auto difrntl wbc Vladimir Greco Start: 02-10-2016 Complete blood count Ro susie Arshadxiomara Start: 02-10-2016 Comprehensive metabo lic panel Vladimir Greco Start: 08-13-2015 Colon ca scrn not hi rsk ind Vladimir Greco Start: 08-13-2015 Screening colonoscopy R alvarado Arshadxiomara Start: 05-30-2015 Blood count complete auto&auto difrntl wbc Vladimir Greco Start: 05-30-2015 Complete blood count Tayla arriaga Fannie Start: 05-30-2015 Comprehensive metabo lic panel Vladimir Greco Start: 05-21-2014 Blood count complete auto&auto difrntl wbc Vladimir Greco Start: 05-21-2014 Complete blood count Ro susie arriaga Fannie Start: 05-21-2014 Comprehensive metabo lic panel Vladimir Greco Complete repair of r otator cuff Geri Vergara Comment on above: 2014 Lewis Liu [address] [facility] [address] Gabriel H/O: hysterectomy Geri Mo ore Comment on above: 1993 [facility]ian Cervantes History of right tot al knee replacement Geri Vergara Comment on above: 2010 Lewis Gabriel Plan of Treatment Date Care Activity Detail Author Start: 03-10-2027 Cholesterol [Mass/volume] in Serum or Plasma Cholesterol [facility] Start: 12-03-2026 Colon cancer screen colonoscopy Colon cancer screen colonoscopy [place], [place] Start: 12-03-2026 Screening for malignant neoplasm of colon [facility] Start: 03-23-2024 Creatinine measurement Basic Metabolic Panel [facility] Start: 03-15-2024 Lipid panel Lipid Profile [facility] Start: 03-15-2024 Urine screening for protein Microalbumin [facility] Start: 03-11-2024 Glaucoma screening Eye Exam [facility] Start: 12-27-2023 Screening for malignant neoplasm of breast Breast cancer screen [facility] Start: 09-16-2023 End: 09-16-2023 Patient encounter procedure 09/16/2023 11:15 AM EDT Office Visit [facility] Orthopedic Spine [address] [place] [phone] Geri Vergara MD [address] [place] [address] [facility] Orthopedic Spine Start: 06-24-2023 End: 06-24-2023 Patient encounter procedure 06/24/2023 10:45 AM EST Office Visit [facility] Orthopedic Spine [address] [place] [id number] Geri Vergara MD [address] [place] [address] [facility] Start: 06-17-2023 End: 06-17-2023 Patient encounter procedure 06/17/2023 10:45 AM EST [facility] [address] [place] [id number] Geri Vergara MD [address] [place] [address] [facility] Start: 05-26-2023 Hemoglobin A1c measurement [facility]C [facility] Start: 04-22-2023 End: 04-22-2023 Patient encounter procedure [facility] Start: 03-31-2023 End: 03-31-2023 Admission to same day surgery center 03/31/2023 7:30 AM EST - 03/31/2023 10:23 AM EST Surgery [facility] Main OR [address] [place] [address] Geri Vergara MD [address] [place] [address] LAMINOPLASTY, POST[facility]IOR [facility] Comment on above: LAMINOPLASTY, POSTERIOR CERVICAL Start: 03-31-2023 End: 03-31-2023 LAMINOPLASTY, POSTERIOR CERVICAL LAMINOPLASTY, POSTERIOR CERVICAL Routine scheduled Cervical spondylosis with myelopathy 03/31/2023 7:30 AM EST [facility] Start: 03-31-2023 Subsequent hospital visit by physician [facility] Main OR Start: 03-23-2023 End: 03-23-2023 Patient encounter procedure 03/23/2023 10:30 AM EDT Office Visit [facility] Pre Surgical Evaluation [address] [place] [address] Dee Mireles, COCOA ROOM OPERATOR-HEEL TOP LIFT SPLITTER [address] [place] [address] [facility] Pre Surgical Evaluation Start: 03-23-2023 End: 03-23-2023 Patient encounter procedure [facility] Radiology CT Start: 02-21-2023 Annual Wellness Visit (G0439) Annual Wellness Visit (G0439) [facility] Start: 02-21-2023 Influenza vaccination Influenza Vaccine (#1) [facility] Start: 02-15-2023 End: 02-16-2024 CT Cervical spine WO contrast CT C-SPINE W/O CONTRAST Imaging Within 1 week Cervical spondylosis with myelopathy Expected: 02/15/2023, Expires: 02/16/2024 [facility] Work Phone: Comment on above: Expected: 02/15/2023, Expires: Start: 02-11-2023 End: 02-11-2023 Patient encounter procedure 02/11/2023 10:30 AM EDT [facility] [address] [place] [phone] Geri Vergara MD [address] [place] [phone] [facility] Start: 01-22-2023 COVID-19 Vaccine () COVID-19 Vaccine () [facility] Start: 12-26-2022 Screening for malignant neoplasm of breast [facility] Start: 11-03-2022 End: 11-03-2022 Patient encounter procedure 11/03/2022 Office Visit Obstetrics and Gynecology Zeus Coughlin, COCOA ROOM OPERATOR - CNM [address] [place], [place] [phone] [facility] OBSTETRICS & [facility]YNECOLOGY [facility] of [facility] Start: 10-29-2022 ambulatory Ambulatory Facility: Start: 10-29-2022 End: 10-29-2022 Patient encounter procedure 10/29/2022 9:45 AM EDT Office Visit [facility] Orthopedic Spine [address] [place] [phone] Geri Vergara MD [address] [place] [phone] [facility] Orthopedic Spine Start: 10-06-2022 End: 10-06-2022 Patient encounter procedure 10/06/2022 Office Visit Orthopedics Geri Vergara MD [address] [place] [phone] [facility] Start: 09-23-2022 End: 09-24-2023 DOWNLOAD [employer] IMAGES TO [email or web address] DOWNLOAD [employer] IMAGES TO [facility] Imaging Routine Spinal stenosis of lumbar region, unspecified whether neurogenic claudication present Expected: 09/23/2022, Expires: 09/24/2023 [employer] Work Phone: Comment on above: Expected: 09/23/2022, Expires: Start: 09-17-2022 Depression Screen Depression Screen [facility] Start: 09-17-2022 DTaP/Tdap/Td vaccine (1 - Tdap) DTaP/Tdap/Td vaccine (1 - Tdap) [facility] Comment on above: Postponed from 1968 (Patient Refus ed) Start: 07-23-2022 Creatinine measurement Creatinine monitoring [facility] Start: 07-23-2022 Potassium monitoring Potassium monitoring [facility] Start: 03-24-2022 End: 03-24-2022 Patient encounter procedure 03/24/2022 Office Visit Urology Prashant Hernandez, COCOA ROOM OPERATOR - HEEL TOP LIFT SPLITTER [address] [place] [phone] [facility] of [facility] Start: 03-18-2022 Depression Screen Depression Screen [facility] Start: 03-17-2022 End: 03-17-2022 Patient encounter procedure 03/17/2022 Office Visit Internal Medicine Cooper Eller MD [address] [place] [address], [address] [place], [place] [phone] Cooper Eller MD Start: 03-13-2022 Annual Wellness Visit (AWV) Annual Wellness Visit (AWV) [facility] Start: 03-12-2022 Diabetic foot examination Diabetic foot exam [facility] Start: 03-04-2022 Hemoglobin A1c measurement A1C test (Diabetic or Prediabetic) [facility] Start: 03-04-2022 Lipid panel [facility] Start: 03-04-2022 Thyroid stimulating hormone measurement TSH testing [facility] Start: 03-04-2022 Urine screening for protein Diabetic microalbuminuria test [facility] Start: 01-22-2022 Influenza vaccination Flu vaccine (#1) [facility] Start: 01-20-2022 End: 01-20-2022 Patient encounter procedure 01/20/2022 Office Visit Urology Prashant Hernandez, COCOA ROOM OPERATOR - HEEL TOP LIFT SPLITTER [address] [place] [phone] [facility] UROLOGY [facility] Start: 10-30-2021 End: 10-30-2021 Patient encounter procedure 10/30/2021 Office Visit Obstetrics and Gynecology Zeus Coughlin, COCOA ROOM OPERATOR - CNM [address] [place], [place] [phone] [facility]OLOGY [facility] Start: 09-17-2021 End: 09-17-2021 Patient encounter procedure 09/17/2021 Office Visit Internal Medicine Cooper Eller MD [address], [place] [address] Cooper Eller MD Start: 09-10-2021 Hepatitis A vaccine (1 of 2 - Risk 2-dose series) Hepatitis A vaccine (1 of 2 - Risk 2-dose series) [facility] Comment on above: Postponed from 1950 (Not Indicated ) Start: 08-28-2021 End: 08-28-2021 Patient encounter procedure 08/28/2021 Office Visit Urology Prashant Hernandez, COCOA ROOM OPERATOR - HEEL TOP LIFT SPLITTER [address] [place] [phone] [facility] UROLOGY [facility] Start: 08-05-2021 End: 08-05-2021 Admission to same day surgery center 08/05/2021 Surgery IP Unit Sandra Alvarenga MD [address], [address] [place] [address] SACRAL NERVE STIMULATOR IMPLANT--REMOVE INTERSTIM AND LEADS PLACEMENT OF NEW INTERSTIM [facility] Comment on above: SACRAL NERVE STIMULATOR IMPLANT--REMOVE INTERSTIM AND LEADS PLACEMENT OF NEW INTERSTIM Start: 08-05-2021 End: 08-05-2021 Inc impltj neurostimulator eltrd sacral nerve [facility] Start: 08-05-2021 Subsequent hospital visit by physician 08/05/2021 Hospital Encounter IP Unit Sandra Alvarenga MD [address], [address] [place], [place] [phone] [facility] Start: 03-31-2021 Diabetic retinal exam Diabetic retinal exam [facility] [employer] [place] Start: 10-08-2020 Blood count complete auto&auto difrntl wbc CBC w diff [facility] Start: 10-08-2020 Comprehensive metabolic panel Comp [facility] Start: 08-22-2020 Creatinine measurement Creatinine monitoring [facility] [employer] [place] Start: 08-22-2020 HbA1c (Bld) [Mass fraction] A1C test (Diabetic or Prediabetic) [place], [place] Start: 08-22-2020 Lipid panel Lipid screen [place] Start: 08-22-2020 Potassium monitoring Potassium monitoring [place] Start: 07-11-2020 Blood count complete auto&auto difrntl wbc [facility] Start: 07-11-2020 Comprehensive metabolic panel [facility] Start: 04-23-2020 End: 04-23-2020 Office Visit 04/23/2020 Office Visit Urology Prashant Hernandez, COCOA ROOM OPERATOR - HEEL TOP LIFT SPLITTER [address] [place] [address] [facility] UROLOGY [facility] Start: 04-01-2020 Blood count complete auto&auto difrntl wbc CBC w diff [facility] Start: 04-01-2020 Comprehensive metabolic panel [facility] Start: 03-31-2020 Diabetic retinal exam Diabetic retinal exam [facility] Start: 03-16-2020 Diabetic retinal exam Diabetic retinal exam [place], [place] Start: 03-06-2020 End: 03-06-2020 Office Visit 03/06/2020 Office Visit Internal Medicine Cooper Eller MD [address] [place] [address], [place] [address] Cooper Eller MD Start: 02-25-2020 Annual Wellness Visit (AWV) Annual Wellness Visit (AWV) [place] Start: 02-25-2020 DTaP/Tdap/Td vaccine (1 - Tdap) DTaP/Tdap/Td vaccine (1 - Tdap) [place] Comment on above: Postponed from 1968 (Patient Refus ed) Start: 02-25-2020 Shingles Vaccine (2 of 3) Shingles Vaccine (2 of 3) [place], [place] Comment on above: Postponed from 11/29/2013 (Patient Refus ed) Start: 02-24-2020 Annual Wellness Visit (AWV) Annual Wellness Visit (AWV) [place] Start: 02-18-2020 A1C test (Diabetic or Prediabetic) A1C test (Diabetic or Prediabetic) [place] Start: 02-18-2020 TSH Qn TSH testing [place] Start: 02-18-2020 TSH testing TSH testing [place] Start: 01-09-2020 Blood count complete auto&auto difrntl wbc CBC, PLATELET, DIFFERENTIAL, AUTOMATED [employer] Start: 01-09-2020 Dual energy X-ray photon absorptiometry DEXA bone density study of axial skeleton [facility] Start: 01-02-2020 Blood count complete auto&auto difrntl wbc CBC w diff [employer] Start: 01-02-2020 Comprehensive metabolic panel Comp [facility] Start: 12-08-2019 Breast cancer screen Breast cancer screen [place], [place] Start: 12-08-2019 Screening for malignant neoplasm of breast Breast cancer screen [place] Start: 10-26-2019 End: 10-26-2019 Office Visit 10/26/2019 Office Visit Obstetrics and Gynecology Zeus Coughlin, COCOA ROOM OPERATOR - CNStephanie [address] [place] [address] [phone] [facility] Start: 10-10-2019 End: 10-10-2019 Office Visit 10/10/2019 Office Visit Obstetrics and Gynecology Zeus Coughlin, COCOA ROOM OPERATOR - CNM [address] [place] [phone] [facility] LOGISTICS LEAD Start: 08-29-2019 End: 08-29-2019 Office Visit 08/29/2019 Office Visit Internal Medicine Cooper Eller MD [address] [place] [address], [place] [address] Cooper Eller MD Start: 08-18-2019 A1C test (Diabetic or Prediabetic) A1C test (Diabetic or Prediabetic) [place], [place] Start: 08-18-2019 Creatinine monitoring Creatinine monitoring [place], [place] Start: 08-18-2019 Potassium monitoring Potassium monitoring [place] Start: 08-09-2019 Blood count complete auto&auto difrntl wbc CBC w diff Immunity Project Start: 08-09-2019 Comprehensive metabolic panel Immunity Project Start: 07-11-2019 Blood count complete auto&auto difrntl wbc CBC, PLATELET, DIFFERENTIAL, AUTOMATED [employer] Start: 05-31-2019 Blood count complete auto&auto difrntl wbc CBC w diff Immunity Project Start: 05-31-2019 Comprehensive metabolic panel CMP Immunity Project Start: 03-10-2019 End: 03-10-2019 Office Visit 03/10/2019 Office Visit Urology Prashant Hernandez, COCOA ROOM OPERATOR - HEEL TOP LIFT SPLITTER [address] [place] [phone] [facility] Start: 03-01-2019 Blood count complete auto&auto difrntl wbc CBC, PLATELET, DIFFERENTIAL, AUTOMATED [facility] Start: 03-01-2019 Comprehensive metabolic panel COMPREHENSIVE METABOLIC PANEL Immunity Project Start: 02-25-2019 [object Object] Diabetic foot exam [place] Start: 02-25-2019 Diabetic foot examination Diabetic foot exam [place] Start: 02-25-2019 Hepatitis A vaccine (1 of 2 - Risk 2-dose series) Hepatitis A vaccine (1 of 2 - Risk 2-dose series) [place] Comment on above: Postponed from 1951 (Not Indicated ) Start: 02-24-2019 End: 02-24-2019 Office Visit 02/24/2019 Office Visit Internal Medicine Cooper Eller MD [address] [place] [address], [facility] [place] [address] Cooper Eller MD Start: 02-18-2019 Lipid screen Lipid screen [place] Start: 01-22-2019 Influenza vaccination Flu vaccine (#1) [place] Start: 11-22-2018 Blood count complete auto&auto difrntl wbc CBC w diff Immunity Project Start: 11-22-2018 Comprehensive metabolic panel Comp Immunity Project Start: 08-29-2018 Blood count complete auto&auto difrntl wbc CBC, PLATELET, DIFFERENTIAL, AUTOMATED Immunity Project Start: 08-29-2018 Comprehensive metabolic panel COMPREHENSIVE METABOLIC PANEL Immunity Project Start: 08-23-2018 Blood count complete auto&auto difrntl wbc CBC w diff Immunity Project Start: 08-23-2018 Comprehensive metabolic panel Comp Immunity Project Start: 08-17-2018 TSH testing TSH testing [place] Start: 06-03-2018 Blood count complete auto&auto difrntl wbc CBC, PLATELET, DIFFERENTIAL, AUTOMATED Immunity Project Start: 05-24-2018 Blood count complete auto&auto difrntl wbc CBC w diff Immunity Project Start: 05-24-2018 Comprehensive metabolic panel Comp [employer] Start: 03-25-2016 Diabetic microalbuminuria test Diabetic microalbuminuria test [place] Start: 09-22-2015 Annual wellness visit Annual Wellness Visit (G0438) [facility] Start: 2014 Pneumococcal vaccination Pneumococcal Vaccine(s) (65+ yrs) (1 - PCV) [facility] Start: 2014 Screening for osteoporosis Bone Densitometry [facility] Start: 11-29-2013 Shingles Vaccine (2 of 3) Shingles Vaccine (2 of 3) [facility] Start: 2012 Annual Wellness Visit (AWV) Annual Wellness Visit (AWV) [place] Start: 2009 RSV vaccine (optional 60+ years) RSV vaccine (optional 60+ years) [facility] Start: 10-21-1999 Shingles (RZV) Vaccine (1 of 2) Shingles (RZV) Vaccine (1 of 2) [facility] Start: 1994 Cholesterol [Mass/volume] in Serum or Plasma Cholesterol [facility] Start: 1994 Screening for malignant neoplasm of colon [facility] Start: 1989 Screening for malignant neoplasm of breast Mammography [facility] Start: 1968 DTaP/Tdap/Td vaccine (1 - Tdap) DTaP/Tdap/Td vaccine (1 - Tdap) [facility] Start: 10-21-1967 Hepatitis C screening Hepatitis C Antibody [facility] Start: 10-21-1967 Tetanus + diphtheria + acellular pertussis vaccine (product) Tdap Booster [facility] Start: 1950 Hepatitis A vaccine (1 of 2 - Risk 2-dose series) Hepatitis A vaccine (1 of 2 - Risk 2-dose series) [facility] Start: 04-22-1951 COVID-19 Vaccine (#1) COVID-19 Vaccine (#1) [facility] Start: 1949 Urine screening for protein Microalbumin [facility] Start: 1949 COVID-19 Vaccine ( formulation) COVID-19 Vaccine ( formulation) [facility] Start: 1949 Cyanocobalamin vitamin b-12 Vitamin B12 [facility] Start: 1949 Diabetic foot examination Foot Exam [facility] Start: 1949 Screening for malignant neoplasm of colon Colonoscopy [facility] Start: 1949 Thyroid stimulating hormone measurement TSH [facility] End: 2019 Culture, Urine Culture, Urine Microbiology Routine Mixed incontinence 1 Occurrences starting 2019 until 2019 [employer] Comment on above: 1 Occurrences starting 2019 until 2019 Culture, Urine Culture, Urine Microbiology Routine Mixed incontinence 2019 3:24 PM EDT [facility] [place] End: 11-18-2021 Culture, Urine [facility] [employer] Work Phone: Comment on above: 1 Occurrences starting 11/18/2021 until 11/18/2021 End: 01-20-2022 Culture, Urine [facility] [employer] Work Phone: Comment on above: 1 Occurrences starting 01/20/2022 until 01/20/2022 End: 04-05-2023 Ecg routine ecg w/least 12 lds trcg only w/o i&r EKG 12 LEAD - PERFORM MUSE Routine Preop testing 1 Occurrences starting 03/22/2023 until 04/05/2023 [employer] Work Phone: Comment on above: 1 Occurrences starting 03/22/2023 until 04/05/2023 End: 08-05-2021 Fluoroscopy during operation FLUORO FOR SURGICAL PROCEDURES Imaging Routine Once for 1 Occurrences starting 08/05/2021 until 08/05/2021 [employer] Phone: Comment on above: Once for 1 Occurrences starting 08/06/19 until 08/05/2021 End: 08-05-2021 INITIATE PACU OXYGEN THERAPY PROTOCOL Initiate PACU Oxygen Therapy Protocol Respiratory Care Routine Continuous until discontinued starting 08/05/2021 [employer] Phone: Comment on above: Continuous until discontinued starting 0 08/05/2021 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 Oxygen therapy [[facility] Data Set] Initiate Oxygen Therapy Protocol Respiratory Care Routine As Needed until discontinued starting 08/05/2021 [employer] Phone: Comment on above: As Needed until discontinued starting End: 01-06-2019 Urine culture clean catch Urine culture clean catch Microbiology Routine Mixed incontinence OAB (overactive bladder) Frequency of urination Urgency of urination 1 Occurrences starting 01/06/2019 until 01/06/2019 [facility] [place] Comment on above: 1 Occurrences starting 01/06/2019 until 01/06/2019 Urine culture clean catch Urine culture clean catch Microbiology Routine Mixed incontinence OAB (overactive bladder) Frequency of urination Urgency of urination 01/06/2019 10:45 AM EDT [facility] [place] Immunizations Immunization Date Immunization Notes Care Provider [facility] 02-02-2023 Influenza, seasonal vaccine, quadrivalent, adjuvanted, 0.5mL dose, preservative free (MXP=842) Geri Vergara MD Work Phone: [facility] 11-23-2022 Hemoglobin A1C Dee Funez COCOA ROOM OPERATOR-[facility] Work Phone: [facility] 02-01-2022 Influenza, injectabl e, high-dose seasonal, quadrivalent, 0.7 mL, preservative free (UHK=389) [facility] 02-01-2022 influenza virus vaccine, unspecified formulation Geri Vergara MD Work Phone: [facility] 08-27-2021 Pfizer Monovalent (1 2+ yrs) SARS-COV-2 (COVID-19) vaccine, mRNA, spike protein, LNP, pres. free, 30 mcg/0.3mL dose, nabil-sucrose (IVO=693) [facility] 02-15-2021 COVID-19, Pfizer Pur ple top, DILUTE for use, 12+ yrs, 30mcg/0.3mL dose Sandra Alvarenga MD Work Phone: [employer] Phone: 02-03-2021 Influenza, High-dose , Quadv, 65 yrs +, IM (Fluzone) Sandra Alvarenga MD Work Phone: [facility] Work Phone: 07-22-2020 COVID-19, Pfizer Pur ple top, DILUTE for use, 12+ yrs, 30mcg/0.3mL dose Sandra Alvarenga MD Work Phone: [facility] Work Phone: 07-01-2020 COVID-19, Pfizer Pur ple top, DILUTE for use, 12+ yrs, 30mcg/0.3mL dose Sandra Alvarenga MD Work Phone: [facility] Work Phone: 01-25-2020 influenza virus vaccine, unspecified formulation Sandra Alvarenga MD Work Phone: [facility] Work Phone: 01-25-2020 Influenza, High-dose , Quadv, 65 yrs +, IM (Fluzone) Sandra Alvarenga MD Work Phone: [facility] 02-14-2019 influenza, high dose seasonal, preservative-free [facility] [place] 02-28-2018 influenza, high dose seasonal, preservative-free [facility] [place] 02-28-2018 pneumococcal polysaccharide vaccine, 23 valent [facility] 03-01-2017 Influenza Vaccine, unspecified formulation [facility] [place] 03-01-2017 influenza virus vaccine, unspecified formulation Cooper Eller MD Work Phone: [facility] Work Phone: 02-19-2017 influenza, high dose seasonal, preservative-free Cooper [facility] 03-04-2016 Influenza Vaccine, unspecified formulation [facility] Work Phone: 03-04-2016 pneumococcal conjuga te vaccine, 13 valent Cooper [facility], [place] 03-02-2016 influenza virus vaccine, unspecified formulation Cooper Eller [facility] [place] 05-01-2015 pneumococcal conjuga te vaccine, [address], [place] 03-24-2015 influenza virus vaccine, unspecified formulation Cooper Eller MD Work Phone: [facility] Work Phone: 03-24-2015 seasonal influenza, intradermal, preservative free [address], [place] 03-13-2015 influenza, high dose seasonal, preservative-free [address], [place] 02-26-2014 influenza virus vaccine, unspecified formulation Cooper [facility] 10-04-2013 zoster vaccine, live Cooper [facility], [place] 02-26-2012 zoster vaccine, live Cooper [facility] 03-24-2011 pneumococcal polysaccharide vaccine, 23 valent Cooper [facility], [place] 03-25-2009 novel [id number], preservative-free, injectable [facility] Payers Date Payer Category Payer Unknown [id number] 2018 Medicare MEDICARE MEDICAR E PART A AND B xxxxxxxxxxx 2018-Present [phone] [place] [address] xxxxxxxxxxx [id number] 2018 Private Health Insurance HUMANA HUMANA MEDICARE SUPP xxxxxxxxx 2018-Present [address] [address] [place] [address] xxxxxxxxx [id number]. [id number] 2014 Medicare [id number] [id number] .[id number] 1959 Medicare [id number] 2.16.840.1.739369.3.441 1959 Private Health Insurance [id number] 1.2.840.210854.1.13.239.2. 7.3.724348.315 1949 Unknown [id number] 2.16.840.1.940974.3.579.2. 173 1949 Unknown [id number] 2.16.840.1.460767.3.579.2. 173 1949 Unknown [id number] 2.16.840.1.495596.3.579.2. 173 1949 Unknown [id number] 2.16.840.1.681515.3.579.2. 173 1949 Unknown [id number] 2.16.840.1.568333.3.579.2. 173 1949 Unknown [id number] 2.16.840.1.450543.3.579.2. 593 1949 Unknown [id number] 2.16.840.1.590211.3.579.2. 593 1949 Unknown [id number] 2.16.840.1.599050.3.579.2. 593 1949 Unknown [id number] 2.16.840.1.438952.3.579.2. 593 1949 Unknown [id number] 2.16.840.1.445830.3.579.2. 593 1949 Unknown [id number] 2.16.840.1.778423.3.579.2. 593 1949 Unknown [id number] 2.16.840.1.285692.3.579.2. 593 1949 Unknown [id number] 2.16.840.1.366549.3.579.2. 593 1949 Unknown [id number] 2.16.840.1.419136.3.579.2. 593 1949 Unknown [id number] 2.16.840.1.118077.3.579.2. 593 1949 Unknown [id number] 2.16.840.1.373511.3.579.2. 593 1949 Unknown [id number] 2.16.840.1.188559.3.579.2. 593 1949 Unknown [id number] 2.16.840.1.762369.3.579.2. 593 1949 Unknown [id number] 2.16.840.1.498072.3.579.2. 593 1949 Unknown [id number] 2.16.840.1.975570.3.579.2. 593 1949 Unknown [id number] 2.16.840.1.307368.3.579.2. 593 1949 Unknown [id number] 2.16.840.1.110057.3.579.2. 593 1949 Unknown [id number] 2.16.840.1.914602.3.579.2. 593 1949 Unknown [id number] 2.16.840.1.590009.3.579.2. 593 1949 Unknown [id number] 2.16.840.1.655704.3.579.2. 727 1949 Unknown [id number] 2.16.840.1.399549.3.579.2. 727 1949 Unknown [id number] 2.16.840.1.121307.3.579.2. 727 1949 Unknown [id number] 2.16.840.1.693956.3.579.2. 727 1949 Unknown [id number] 2.16.840.1.961995.3.579.2. 727 1949 Unknown [id number] 2.16.840.1.759596.3.579.2. 594 1949 Unknown [id number] 2.16.840.1.802390.3.579.2. 594 1949 Unknown [id number] 2.16.840.1.975958.3.579.2. 594 1949 Unknown [id number] 2.16.840.1.793672.3.579.2. 196 1949 Unknown [id number] 2.16.840.1.745343.3.579.2. 196 1949 Unknown [id number] 2.16.840.1.896598.3.579.2. 196 1949 Unknown [id number] 2.16.840.1.696461.3.579.2. 196 1949 Unknown [id number] 2.16.840.1.777192.3.579.2. 196 1949 Unknown [id number] 2.16.840.1.911130.3.579.2. 196 1949 Unknown [id number] 2.16.840.1.824801.3.579.2. 732 1949 Unknown [id number] 2.16.840.1.749796.3.579.2. 732 1949 Unknown [id number] 2.16.840.1.892155.3.579.2. 732 1949 Unknown [id number] 2.16.840.1.650254.3.579.2. 732 1949 Unknown [id number] 2.16.840.1.051803.3.579.2. 732 1949 Unknown [id number] 2.16.840.1.603926.3.579.2. 732 1949 Unknown [id number] 2.16.840.1.793427.3.579.2. 732 1949 Unknown [id number] 2.16.840.1.230261.3.579.2. 732 1949 Unknown [id number] 2.16.840.1.509631.3.579.2. 732 1949 Unknown [id number] 2.16.840.1.526809.3.579.2. 732 1949 Unknown [id number] 2.16.840.1.440744.3.579.2. 73 1949 Unknown [id number] 2.16.840.1.449265.3.579.2. 73 1949 Unknown [id number] 2.16.840.1.102087.3.579.2. 73 1949 Unknown [id number] 2.16.840.1.331602.3.579.2. 73 1949 Unknown [id number] 2.16.840.1.403981.3.579.2. 732 Private Health Insurance [id number] 2.840.1.430675.3.441 Unknown [id number] 2.16840.1.154847.3.441 Unknown [id number] 2.840.1.862817.3.441 Social History Date Type Detail Facility Start: Denies ETOH use Bath [employer] [facility] Start: End: 10-29-2022 Former smoker Bath [employer] [facility] [employer] [facility] End: 05-24-1974 History of tobacco use Current smoker [place], [place] End: 05-24-1974 History of tobacco use Cigarette [place] Start: 01-06-2019 End: 01-20-2022 Cigarettes smoked current (pack per day) - Reported [place] Start: 01-06-2019 End: 02-24-2019 Alcohol intake No [facility] Start: 03-24-2016 End: 01-20-2022 Tobacco Comment smoked socially on occassion until 1999 [place], [place] Start: 11-15-2016 Alcohol Comment social [place] Start: 1950 Sex Assigned At Not on file [place] Start: 2019 Alcohol intake Current non-drinker of alcohol (finding) [place] Start: 08-29-2019 History SDOH Financial 5 [place] Start: 08-29-2019 End: 03-18-2021 History SDOH Food Worry 1 [place] Start: 08-29-2019 End: 03-18-2021 History SDOH Transport Med 2 [place], [place] Start: 1950 Sex Assigned At Female [place] Exposure to SARS-CoV -2 (event) Unable to assess [place] Start: 04-03-2015 End: 10-29-2022 Tobacco use and exposure Smokeless tobacco non-user [employer] Phone: Start: 07-23-2021 End: 08-05-2021 Alcohol intake Current drinker of alcohol (finding) [employer] Phone: Start: 03-11-2020 History SDOH Alcohol Std Drinks 98 [employer] Phone: Start: 03-18-2021 History SDOH Social Connections Phone 3 [employer] Phone: Start: 03-18-2021 History SDOH Social Connections Living 7 [employer] Phone: Start: 03-18-2021 History SDOH Physical Activity DPW 0 [employer] Phone: Start: 03-18-2021 History SDOH Financial 4 [employer] Phone: Start: 2021 End: 10-30-2021 Exposure to SARS-CoV-2 (event) Not sure [employer] Phone: Start: 11-18-2021 End: 04-01-2023 Alcohol intake Ex-drinker (finding) [facility] [employer] Phone: Tobacco smoking status No Smokin g Status Entered [facility] Tobacco smoking stat [facility] Tobacco smoking consumption unknown [facility] Start: 09-24-2022 Gender identity Identifies as female gender (finding) [facility] Start: 09-24-2022 Sexual orientation Heterosexual (finding) [facility] Medical Equipment Procedure Code Equipment Code Equipment Origin al Text Equipment Identifier Dates Kit Lead Sure Sc an Interstim Mri - [id number] Start: 08-05-2021 Generator Neurostimulator [id number] Thk3in Torq Wrnch Prod - [id number] Start: 08-05-2021 Comment on above: Description: PIN# [id number] Plate 7mm In-Tiffanie e Shelf Ea1 1102.3007 - [id number] Start: 03-31-2023 Screw 2.6 X 6mm Self-Drilling Ea1 1102.6006 - [id number] Start: 03-31-2023 Functional Status Date Assessment Result Facility 11-10-2022 Functional Status N/A [facility] 06-16-2022 Functional Status N/A [facility] 05-19-2022 Functional Status N/A [facility] Clinical Notes 07-23-2021 to 06-17-2023 Lisa Huff RN - 06/17/2023 10:59 AM Geri Marin MD - 06/16/2023 6:06 PM ESTTelephone Encounter - Jose Guadalupe Fox RN - 05/04/2023 1:46 PM Maruicio Walters - 04/22/2023 4:22 PM EST Note Date & Type Note Facility 06-17-2023 History of Presen t illness Narrative Patient was identified by name and date of . Lisa Huff RN Patient at risk for falls:No Falls Risk protocol implemented: No DX: [id number] Posterior cervical laminoplasty, C4 to C7, with Globus Canopy laminoplasty system. LAST VISIT: 22apr2023 Ruddy SIMON Ms Rubio returns today. Normal bowel habits. Denies fever/chills. PE: Incision C/D/I, at neuro baseline, deltoids intact. Rowland removed from surgical incision, steri-strips applied. INV: [...] her cervical spine. documented in this encounter [facility] 05-04-2023 Telephone encount er Note RN called [...] Pt asked how to send messages in [employer]. RN let her know to make sure she is logged into her [facility] and to send messages to Dr Vergara and they will get to his RN. Pt agreeable. No further questions. Pt verbalized understanding. ----- Message from Judith Palm sent at 05/04/2023 12:15 PM EST ----- Regarding: clarification Needs clarification on her neck exercises. Please call. [facility] 05-04-2023 Miscellaneous Notes Formattin g of this [...] Pt asked how to send messages in [employer]. RN let her know to make sure she is logged into her [facility] DDNhart and to send messages to Dr Vergara and they will get to his RN. Pt agreeable. No further questions. Pt verbalized understanding. ----- Message from Judithnikunj Palm sent at 05/04/2023 12:15 PM EST ----- Regarding: clarification Needs clarification on her neck exercises. Please call. documented in this encounter [facility] 04-22-2023 History of Presen t illness Narrative [...] the cervical spine. documented in this encounter [facility] 04-09-2023 Telephone encount er Note RN called SNF back. Spoke with Beryl [...] 4:13 PM EST ----- Regarding[phone] Calling to question can she get a shower ? Hair washed ? Still has justine - Dressing off today [facility] 04-09-2023 Miscellaneous Notes Formattin g of this note might be different from the original. RN called [facility] back. Spoke with Beryl who had originally [...] 4:13 PM EST ----- Regarding: ? from [facility] Deacon Beryl [phone] Calling to question can she get a shower ? Hair washed ? Still has justine - Dressing off today documented in this encounter [facility] 04-03-2023 Note DISCHARGE SUMMARY [address] [address] Massimo Banerjee Date of : 1950 72 year oldfemale Attending No att. providers found ? Date of Admission 03/31/2023 Date of Discharge 04/03/23 Hospital Problems as of 04/03/2023 * (Principal) Cervical spondylosis with myelopathy History of major orthopedic surgery No discharge procedures on file. Future Appointments Date Time Provider Department Center 04/22/2023 10:30 AM ORTHO SPINE RN [facility] [place] Condition at Discharge Improved Activity WBAT, no [...] Patient was started on oxycodone, tylenol, and PROPERTY AND CASUALTY INSURANCE AGENT for pain control. Physical therapy recommended continued recovery at SNF with continued physical therapy and wound care. On the day of discharge, patient was afebrile with stable vital signs. Patient was neurovascularly intact at time of discharge. Patient will follow-up with Dr. Vergara in 2 weeks for post-operative visit. Jose Guadalupe Coello MD Orthopaedic Surgery, PGY 2 Ortho Team A Pager [phone] ([employer] Chat works best - please include all of Team A in afterBOT messages) Additional Team A: Charlie Solis MD ([phone]) After 5 pm and on weekends, please page security solutions engineer resident ([phone]) with questions or concerns. [employer] 04-03-2023 Note ORTHOPAEDIC SURGERY PROGRESS NOTE [...] PM and Weekends, please notify consult pager, [phone] Ortho Team A: Tati Coello, PGY2: [phone] Charlie Solis, PGY2: [phone] Ortho Team B: Percy (Yvette) Jacqueline, PGY3: [phone] Jeffrey Vega, PGY1: [phone] Ortho Elective Team: Harini Cardoso, PGY3: [phone] Aden Culver, PGY2: [phone] Ortho Hand Team: Chavez iGll, PGY4: [phone] Kyle Santos, PGY4: [phone] [employer] 04-02-2023 Note 04/02/23 0827 Assessment and Discharge Planning Evaluation READMISSION LESS THAN 30 DAYS No READMISSION RISK SCORE IS Low Risk INTERVIEWED Patient;Chart Review COGNITIVE STATUS Oriented to person, place, time and location Functional Status Age Appropriate;Ambulatory LIVING SITUATION Alone;Home - Own PCP VERIFIED No ADMISSION INSURANCE Medicare HOME HEALTH CARE PRIOR TO ADMISSION No Dialysis No TENTATIVE DISCHARGE PLAN [facility] Facility READMISSION RISK SCORE SHOULD BE Remain Unchanged REASON READMISSION SCORE NEEDS ADJUSTED na CM met with Ms Banerjee yesterday. She is requesting SNF ([facility]) CM sent referral via [facility]. She will need 3 midnights in order to transfer which will be Wednesday04/03/23. CM will remain available to assist with discharge planning and needs as warranted. Eloisa URBINA, quality control (8:30-4:00) [employer] 04-02-2023 Note ORTHOPAEDIC SURGERY PROGRESS NOTE [...] PM and Weekends, please notify consult pager, [phone] Ortho Team A: Tati Coello, PGY2: [phone] Charlie Solis, PGY2: [phone] Ortho Team B: Percy (Evelina Phillips, PGY3: [phone] Jeffrey Vega, PGY1: [phone] Ortho Elective Team: Harini Cardoso, PGY3: [phone] Aden Culver, PGY2: [phone] Ortho Hand Team: Chavez Gill, PGY4: [phone] Kyle Santos, PGY4: [phone] [facility]-01-2023 Note PHYSICAL THERAPY ACU TE [...] Patient Identified Goal(s): 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 Drives. Retired. Home: 3 steps to enter without rails. 1 flight of steps to bedroom/bathroom with rails. *can stay in recliner on first level with half bath Assistance available: limited assist. Can call people but cannot depend on them Equipment available: quad cane OBJECTIVE: Appearance: soft cervical collar, IV, PROPERTY AND CASUALTY INSURANCE AGENT, BLE SCDs, hemovac drain Behavior: WFL Oriented x 3 Follows 1 step commands consistently Pain: Site/Location: neck and shoulders; Pain Scale: greater than a 10 /10 Pain Relief Interventions Implemented: positioning, rest, PROPERTY AND CASUALTY INSURANCE AGENT and RN administered tylenol. Passive ROM: Not [...] in reach. Chair alarm on. RN aware. PROPERTY AND CASUALTY INSURANCE AGENT in reach. Endurance: WFL Patient/Family Education: Instructed [...] patient i (more content not included)... [employer] 04-01-2023 Note OCCUPATIONAL THERAPY INITIAL EVALUATION Patient seen from 1049 to 1111 on GC6E unit for 22 minutes. (E + Tx) Co-eval with PT for skilled assist with progression of functional mobility and safety. Admit Date: 03/31/2023 8:20 AM Reason for Admit: 72 y/o female presenting for planned procedure 2/2 cervical spondylosis with myelopathy Precautions/Activity Order: [place] Full Code Regular Diet Activity as Tolerated [...] Subjective: I plan on going to a residential facility. I already called them before the [...] Relaxation Training, and Encouraged patient to use PROPERTY AND CASUALTY INSURANCE AGENT Self Care: Assistance Level Dep Max Mod Min CG CS DS NH I Set-Up Comment Feeding X Drinking from [...] Dep Max Mod Min CG CS DS NH I Set-Up Comment Toilet Transfers Bed Transfers x2 Sit > stand EOB to quad cane in (R) hand (Min x2) Upon stand, pt reaching for therapist's hand on (L) d/t instability. Provided MATTRESS INSPECTOR. Pt then took few steps to transfer to chair with Min x2 (MATTRESS INSPECTOR and quad cane). Stand > sit in [...] increased pain but observed at least 3+ Patternmaker Helper strength WFL Denies numbness/tingling Vision/Perception: WFL Cognition: [...] With Patients permission ordered no equipment via [employer] Order. If any questions contact [facility] DME Provider at [phone]. 6 Clicks Daily Activity OT 04/01/2023 Help [...] = Mi (more content not included)... [employer] 04-01-2023 Note EXAMINATION: XR C-SP INE [...] changes without acute complication. MACRO: None [facility] [employer] 04-01-2023 Note ORTHOPAEDIC SURGERY PROGRESS NOTE SUBJECTIVE: No acute events overnight. AFVSS. Pain is well controlled. OBJECTIVE: Patient Vitals for the past 24 hrs: BP Temp Temp src Pulse Resp SpO2 O2 Device O2 Flow Rate (l/min) 03/31/232049 133/66 97.7 ???F (36.5 ???C) Oral 84 [...] Surgery, PGY 2 Ortho Team A Pager [phone] ([employer] Chat works best - please include all of Team A in afterBOT messages) Additional Team A: Charlie Solis MD ([phone]) After 5 pm and on weekends, please page security solutions engineer resident ([phone]) with questions or concerns. [facility] [employer] 03-31-2023 Note I have reviewed the patient's History and Physical Examination. I have personally seen and evaluated the patient, repeating morales portions. There is no significant interval change. Surgery is still indicated. Yes Consent reviewed and signed by patient/family: Yes Operative site verified and marked: Yes Tammy Ridley MD Spine Fellow Orthopaedic On-Call Pager at [phone] [employer] 03-23-2023 History of Presen t illness Narrative DX: Cervical spondylosis with myelopathy LV: [id number] Ms Banerjee comes in today with family. [...] of their surgery. documented in this encounter [facility] 03-23-2023 Instructions Dee Mireles APRN-CNP - 03/23/2023 [...] all Co Q 10 , Vitamin E, [place] 3, fish oil and herbal supplements for 1 week prior to surgery Do not take Valsartan,hydrochlorothiazide morning of surgery Don't take any metformin evening before and the morning of surgery Do not take any diabetes medication on the morning of the surgery documented in this encounter [facility] 03-23-2023 Instructions Dee Mireles APRN-CNP - 03/23/2023 [...] all Co Q 10 , Vitamin E, [place] 3, fish oil and herbal supplements for 1 week prior to surgery Do not take Valsartan,hydrochlorothiazide morning of surgery Don't take any metformin evening before and the morning of surgery Do not take any diabetes medication on the morning of the surgery documented in this encounter [facility] 03-23-2023 Evaluation note Patient was identified by name and date of . Kassandra Griggs Patient at risk for falls:No Falls Risk protocol implemented: No [facility] 03-23-2023 Miscellaneous Notes Formattin g of this note might be different from the original. Patient was identified by name and date of . Kassandra Griggs Patient at risk for falls:No Falls Risk protocol implemented: No Images from the original note were not included. Presurgical Evaluation (Pre-Admission Testing) Consultation Massimo Howardhiwot, [id number] 72 year old Female 03/23/2023 Consult placed [...] MCG (2000 UT) TABS Take by mouth. [place]ie 3-6-9 Fatty Acids (TRIPLE OMEGA-3-6-9 ORAL) Take [...] Signed During This Encounter GLUCOSE, FINGERSTICK-IN OFFICE [59177] BASIC METABOLIC PANEL [CH8] HEPATIC FUNCTION PANEL [HEPATIC] COMPLETE BLOOD COUNT W/DIFF (RAPID RESPONSE LABS) PROTHROMBIN TIME AND INR [PT] PARTIAL THROMBOPLASTIN TIME [APTT] TYPE AND SCREEN [TS] Abo Rh Type Complete Blood Count W/Diff EKG 12-LEAD TRACING [19863] LABORATORY DATA: Contains abnormal data HEMOGLOBIN A1C Order: [id number] Component Ref Range & Units 3 mo [...] 10:50 AM 03/23/2023 documented in this encounter [facility] 03-23-2023 Miscellaneous Notes Formattin g of this note might be different from the original. Patient was identified by name and date of . Kassandra Griggs Patient at risk for falls:No Falls Risk protocol implemented: No Images from the original note were not included. Presurgical Evaluation (Pre-Admission Testing) Consultation Massimo Banerjee, [id number] 72 year old Female 03/23/2023 Consult placed [...] MCG (2000 UT) TABS Take by mouth. [place]ie 3-6-9 Fatty Acids (TRIPLE OMEGA-3-6-9 ORAL) Take [...] Signed During This Encounter GLUCOSE, FINGERSTICK-IN OFFICE [97831] BASIC METABOLIC PANEL [CH8] HEPATIC FUNCTION PANEL [HEPATIC] COMPLETE BLOOD COUNT W/DIFF (RAPID RESPONSE LABS) PROTHROMBIN TIME AND INR [PT] PARTIAL THROMBOPLASTIN TIME [APTT] TYPE AND SCREEN [TS] Abo Rh Type Complete Blood Count W/Diff EKG 12-LEAD TRACING [12116] LABORATORY DATA: Contains abnormal data HEMOGLOBIN A1C Order: [id number] Component Ref Range & Units 3 mo [...] 10:50 AM 03/23/2023 documented in this encounter [facility] 03-22-2023 Note Presurgical Evaluati on (Pre-Admission Testing) Consultation Massimo Banerjee, [id number] 72 year old Female 03/23/2023 Consult placed [...] MCG (2000 UT) TABS Take by mouth. [place]ie 3-6-9 Fatty Acids (TRIPLE OMEGA-3-6-9 ORAL) Take [...] mood/affect Skin: (more content not included)... [facility] [employer] 03-22-2023 Evaluation note Images from the original note were not included. Presurgical Evaluation (Pre-Admission Testing) Consultation Massimo Banerjee, [id number] 72 year old Female 03/23/2023 Consult placed [...] times daily. Cholecalciferol (Vitamin D) 50 MCG (1999 UT) TABS Take by mouth. [place]ie 3-6-9 Fatty Acids (TRIPLE OMEGA-3-6-9 ORAL) Take [...] Signed During This Encounter GLUCOSE, FINGERSTICK-IN OFFICE [91513] BASIC METABOLIC PANEL [CH8] HEPATIC FUNCTION PANEL [HEPATIC] COMPLETE BLOOD COUNT W/DIFF (RAPID RESPONSE LABS) PROTHROMBIN TIME AND INR [PT] PARTIAL THROMBOPLASTIN TIME [APTT] TYPE AND SCREEN [TS] Abo Rh Type Complete Blood Count W/Diff EKG 12-LEAD TRACING [97391] LABORATORY DATA: Contains abnormal data HEMOGLOBIN A1C Order: [id number] Component Ref Range & Units 3 mo [...] Interviewer signature: ALEXANDER Alvarez 10:50 AM 03/23/[address] [facility] 02-11-2023 History of Presen t illness Narrative A soft cervical collar was dispensed to patient in clinic today. Patient was identified by name and date of . Lisa Huff RN Patient at risk for falls:Yes Falls Risk protocol implemented: Yes Ambulates with cane Lisa Huff RN Images from the original note were not included. DX: Cervical myelopathy LV: [id number] Ms Banerjee returns today. She received a ANAHY [id number]. It affected her neck symptoms on the [...] every 4-6 months. documented in this encounter [facility] 12-24-2022 History of Presen t illness Narrative Patient was identified by name and date of . Lisa Huff RN Patient at risk for falls:No Falls Risk protocol implemented: No Images from the original note were not included. DX: Cervical myelopathy LV: [id number] Ms Banerjee returns today. [facility] pain management refused to do a ANAHY. She is going to talk to her new pain management docs in [place]. INV: MRI cervical performed 16oct2022 IMP: 71yo [...] every 4-6 months. documented in this encounter [facility] 11-10-2022 Evaluation + Plan note Extrac nagi from: Title:NPV Author:Rosalino FOSTER, Gerry Abbott Date :11/10/22 Impression and Plan 72-year-old female [...] substances from her current pain provider at [place]. She wishes to continue receiving those prescriptions [...] understanding and agrees with plan of care [facility]06-08-2023 History of Present illness Narrative* Lisa Huff RN - 10/29/2022 9:58 AM EDT Patient was identified by name and date of . Lisa Huff RN Patient at risk for falls:No Falls Risk protocol implemented: No * Geri Vergara MD - 10/28/2022 6:37 AM EDT Images from the original note were not included. DX: Lumbar stenosis rule out cervical myelopathy LV: [id number] Ms Banerjee returns today to review the [...] will consider her options. documented in this [id number] NoteProcedure: Liver sonogram with elastography. Technique: Real-time [...] 1. 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 Slight worsening compared to 6 months ago. [...] Is Signed, Electronically Signed in Other Vendor System)[facility]03-09-2023 NoteCONSULTATION PROCEDURE DATE: 07/30/2022 PREOPERATIVE DIAGNOSIS: Bilateral [...] will be followed up in the office.[facility] 07-30-2022 NoteCONSULTATION CONSULTATION DATE: 07/30/2022 HISTORY OF PRESENT ILLNESS: This is a 71-year-old female who returns to the clinic status post lumbar epidural steroid injection completed on 07/07/2022. This patient received a lumbar epidural and it afforded only 10% relief. Historically, she has received much better relief, and she is disappointed. Medications include Austin 5/325 b.i.d., Mobic 15 mg daily, Tylenol and trazodone. Patient has seen Dr. Geri Vergara, neurosurgeon, at [facility], but he has since moved to [facility]. She is going to follow up with [...] in two months' time, unless otherwise indicated.[facility] [id number] NoteCONSULTATION CONSULTATION DATE: 06/25/2022 HISTORY OF PRESENT ILLNESS: This is a 71-year-old female who returns to the clinic following neurosurgical evaluation with Dr. Geri Vergara at [facility] in [place]. She was last seen in the office [...] denies any falls or injuries. Medications include Austin 5/325 daily p.r.n., which she does use [...] mg daily and maintain her on her Austin 5/325 p.r.n. Patient agrees with the procedure and will be followed up in the clinic thereafter.[id number] Evaluation + Plan noteExtracted from: Title:Spine Follow [...] She will follow-up with spine as needed. [facility]12-15-2022 NoteCONSULTATION PROCEDURE DATE: 05/07/2022 PREOPERATIVE DIAGNOSIS: [...] will be followed up in the office.[id number] NoteCONSULTATION CONSULTATION DATE: 05/07/2022 HISTORY OF PRESENT [...] consent to. We will start her on Austin 5/325 once or twice daily p.r.n. for pain. We are sending a referral to Neurosurgery to Dr. Anjum Vergara in [place] [facility]. Patient agrees with this plan of care, will be followed up here in two months' time, unless otherwise indicated.[facility] [id number] NoteCONSULTATION CONSULTATION DATE: 04/22/2022 This is a [...] of care. The patient is in agreement.[facility] [id number] NoteProcedure: Liver sonogram with elastography. Technique: Real-time [...] Is Signed, Electronically Signed in Other Vendor System)[facility]10-26-2022 NoteCONSULTATION CONSULTATION DATE: 03/18/2022 HISTORY OF PRESENT [...] followed up in the office post procedure.[facility] [id number] NoteCONSULTATION CONSULTATION DATE: 02/19/2022 HISTORY OF PRESENT [...] followed up in the office post procedure.[facility] [id number] Note CONSULTATION CONSULTATION DATE: 11/19/2021 HISTORY OF [...] Patient agrees with the plan of care. [facility] Signed and Approved by: ANDREW CALLEJAS . 11/20/2021 13:37:00[facility] [id number] NoteCONSULTATION CONSULTATION DATE: 10/09/2021 This 70-year-old female [...] followed up in the office post procedure. [facility] Signed and Approved by: ANDREW CALLEJAS . 10/13/2021 14:58:00[facility]03-15-2022 History of Present illness Narrative* Delores [...] a responsible adult. Yes documented in this [facility] Phone: 1(363) 785-760803-15-2022 Hospital Discharge instructions* Instructions* Delores Wilson RN [...] urine. Call Dr. Alvarenga for any questions [phone] documented in this [facility] Phone: [phone] History of Present illness Narrative* Sayda eSpulveda RN - 07/23/2021 9:00 AM EST [facility] Preadmission Testing Name: Massimo Banerjee : 1950 Patient (home) Procedure INTERSTIM REPLACEMENT [...] stress test? [x] Yes [] No When/where: [facility] Was it normal? [x] Yes [] No [...] and Caregiver Arranged: Yes Ride Caregiver Provider: [facility] [facility] Bottle/Wipes provided with instructions for use: [...] instructions reviewed with patient. documented in this encounterMeniga Phone: evaluation + Plan note No data available for this section [facility] note Future Appointments Appointment Date:06/16/2022 01:30:00 PM Scheduled Provider:Janie Henning PA-C Location:.[facility] Appointment Type:Spine - Follow Up () [facility]* Diagnosis Preop testing Preoperative examination, unspecified documented in this encounter [employer] Phone: evaluation note* Diagnosis OAB (overactive bladder)- Primary Hypertonicity of bladder Mixed incontinence Mixed incontinence urge and stress (male)(female) documented in this encounter [employer] Phone: evaluation note* Diagnosis Urinary urgency Urgency of urination documented in this encounter [employer] Phone: evalatqekc note* Diagnosis Urinary urgency Urgency of urination Frequency of micturition Urinary frequency documented in this encounter [employer] Phone: evalfrurrq note* Diagnosis Spinal stenosis of lumbar region, unspecified whether neurogenic claudication present- Primary [facility] Diagnosis Spinal stenosis of lumbar region, [...] instructions No data available for this section [facility] HospitalProgress note No data available for this section [facility] HospitalReason for visit Narrative* Auth/Cert Specialty Diagnoses / Procedures Referred By Rebekah lara Referred To Contact Diagnoses OAB (overactive bladder) OAB MIXED CONTINENCE Procedures GA OPEN IMPLANTATION JENNI SACRAL NERVE SACRAL NERVE STIMULATOR IMPLANT--REMOVE INTERSTIM AND LEADS PLACEMENT OF NEW INTERSTIM Sandra Alvarenga MD [address] [place] [address], [address] [place] [address] [employer] [address] [place] [address] Referral ID Status Reason Start Date Expiration Date Visits Re quested Visits Authorized [id number] 1 1 [employer] Phone: Assessments Diagnosis Mixed incontinence Mixed incontinence urge and stress (male)(female) OAB (overactive bladder) Hypertonicity of bladder Frequency of urination Urinary frequency Urgency of urination Diagnosis Mixed incontinence Mixed incontinence urge and stress (male)(female) Diagnosis Renal stones Calculus of kidney Advance Directives Documents on File Type Date Recorded 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 Expl anation Advance Directives and Living Will Power of Construction Recruiter Latest Code Status on File Code Status Date Activated Date Inactivated Comments Full Code 04/07/2016 12:51 PM 04/07/2016 6:11 PM Full Code 03/24/2016 7:53 AM 03/24/2016 2:13 PM Documents on File Type Date Recorded 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 Expl anation ACP-Advance Directive ACP-Power of Construction Recruiter Latest Code Status on File Code Status Date Activated Date Inactivated Comments Full Code 04/07/2016 12:51 PM 04/07/2016 6:11 PM Full Code 03/24/2016 7:53 AM 03/24/2016 2:13 PM Latest Code Status on File Code Status Date Activated Date Inactivated Comments Full Code 08/05/2021 12:10 PM Full Code 04/07/2016 12:51 PM 04/07/2016 6:11 PM Documents on File Type Date Recorded 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 Expl anation ACP-Advance Directive ACP-Power of Construction Recruiter Latest Code Status on File Code Status [...] Referral Specialty Diagnoses / Procedures Referred By Rebekah lara Referred To Contact Cardiology Diagnoses Preop testing Procedures EKG 12 Lead Prashant Hernandez, COCOA ROOM OPERATOR - HEEL TOP LIFT SPLITTER [address] [facility] [address] [place] [address] Referral ID Status Reason Start Date Expiration Date Visits Re quested Visits Authorized [id number] Open 07/22/2021 07/22/2022 1 1 Specialty Diagnoses / Procedures Referred By Contac t Referred To Contact Radiology Diagnoses Spinal stenosis of lumbar region, unspecified whether neurogenic claudication present Procedures DOWNLOAD POWERSHARE IMAGES TO Geri Garay MD [address] [place] [address] [email or web address] DIAGNOSTIC RADIOLOGY [address] [place] [address] [place] [address] Referral ID Status Reason Start Date Expiration Date V isits Requested Visits Authorized [id number] Authorized 09/23/2022 09/23/2023 1 1 Specialty Diagnoses / Procedures Referred By Contac t Referred To Contact Radiology Diagnoses Myelopathy (HCC) Procedures MR NEURO IMAGE IMPORT(WHIT) DOWNLOAD POWERSHARE IMAGES TO Geri Garay MD [address] [place] [address] [facility] [[email or web address] DIAGNOSTIC RADIOLOGY [address] [place] [address] [place] [address] Referral ID Status Reason Start Date Expiration Date Visits Re quested Visits Authorized [id number] Closed 10/26/2022 10/26/2023 1 1 Specialty Diagnoses / Procedures Referred By Contac t Referred To Contact Radiology Diagnoses Cervical spondylosis with myelopathy Procedures CT C-SPINE W/O CONTRAST Geri Vergara MD [address] [place] [address] [facility] [[email or web address]] CT SCAN Referral ID Status Reason Start Date Expiration Date V isits Requested Visits Authorized [id number] Authorized 02/15/2023 02/15/2024 1 1 Referral ID Status Reason Start Date Expiration Date Visits Re quested Visits Authorized [id number] Closed 02/15/2023 02/15/2024 1 1 Specialty Diagnoses / Procedures Referred By Contac t Referred To Contact Radiology Diagnoses Cervical spondylosis with myelopathy Procedures XR C-SPINE FLEX/EXT ONLY 2 VIEWS Geri Vergara MD [address] [place] [address] [facility] [[email or web address]] DIAGNOSTIC RADIOLOGY [address] [place] [address] Referral ID Status Reason Start Date Expiration Date Visits Re quested Visits Authorized [id number] Closed 06/16/2023 06/15/2024 1 1 Summary Purpose Family History No Family History Records FoundNo Family History Records FoundNo Family History Records FoundNo Family History Records FoundNo Family History Records FoundNo Family History Records Found Additional Source Comments Care Teams (unrecognized sec tion and content) Manufacturing Laborer Relationship Specialty Start Date End Date Cooper Eller MD [address] [place] [address] [place] [id number] PCP - General Internal Medicine 07/20/14 Manufacturing Laborer Relationship Specialty Start Date End Date Cooper Eller MD [address] [place] [address] [place] [address] PCP - General Internal Medicine 07/20/14 Manufacturing Laborer Relationship Specialty Start Date End Date Cooper Eller MD [address] [place] [address], [facility] [place] [address] PCP - General Internal Medicine 07/20/14 Manufacturing Laborer Relationship Specialty Start Date End Date Geri Vergara MD [address] [place] [address] Physician Orthopaedic Surgery 09/26/22 Manufacturing Laborer Relationship Specialty Start Date End Date Geri Vergara MD [address] [place] [address] Physician Orthopaedic Surgery 09/26/22 Manufacturing Laborer Relationship Specialty Start Date End Date Geri Vergara MD [address] [place] [address] Physician Orthopaedic Surgery 09/26/22 Manufacturing Laborer Relationship Specialty Start Date End Date Geri Vergara MD [address] [place] [address] Physician Orthopaedic Surgery 09/26/22 Manufacturing Laborer Relationship Specialty Start Date End Date Geri Vergara MD [address] [place] [address]644 Physician Orthopaedic Surgery 09/26/22 Manufacturing Laborer Relationship Specialty Start Date End Date Geri Vergara MD [address] [place] [address] 31575 Physician Orthopaedic Surgery 09/26/22 Manufacturing Laborer Relationship Specialty Start Date End Date Geri Vergara MD [address] [place] [address]1663 Physician Orthopaedic Surgery 09/26/22 Manufacturing Laborer Relationship Specialty Start Date End Date Geri Vergara MD [address] [place] [address] 11260 Physician Orthopaedic Surgery 09/26/22 Manufacturing Laborer Relationship Specialty Start Date End Date Geri Vergara MD [address] [place] [address] 20361 Physician Orthopaedic Surgery 09/26/22 Manufacturing Laborer Relationship Specialty Start Date End Date Geri Vergara MD [address] [place] [address] 48644 Physician Orthopaedic Surgery 09/26/22 Manufacturing Laborer Relationship Specialty Start Date End Date Geri Vergara MD [address] [place] [address] 83928 Physician Orthopaedic Surgery 09/26/22 Manufacturing Laborer Relationship Specialty Start Date End Date Geri Vergara MD [address] [place] [address] 43392 Physician Orthopaedic Surgery 09/26/22 Manufacturing Laborer Relationship Specialty Start Date End Date Geri Vergara MD [address] [place] [address] 40468 Physician Orthopaedic Surgery 09/26/22 Manufacturing Laborer Relationship Specialty Start Date End Date Geri Vergara MD [address] [place] [address] 74934 Physician Orthopaedic Surgery 09/26/22 Dee Mireles APRN-HEEL TOP LIFT SPLITTER [address] [place] [address] [place] [address] DRYWALL STRIPPER HELPER Anesthesiology 03/27/23 Manufacturing Laborer Relationship Specialty Start Date End Date Geri Vergara MD [address] [place] [id number] Physician Orthopaedic Surgery 09/26/22 Dee Mireles APRN-HEEL TOP LIFT SPLITTER [address] [place] [address] [place] [address] DRYWALL STRIPPER HELPER Anesthesiology 03/27/23 Manufacturing Laborer Relationship Specialty Start Date End Date Geri Vergara MD [address] [place] [id number] Physician Orthopaedic Surgery 09/26/22 Dee Mireles APRN-HEEL TOP LIFT SPLITTER [address] [place] [address] [place] [address] DRYWALL STRIPPER HELPER Anesthesiology 03/27/23 Manufacturing Laborer Relationship Specialty Start Date End Date Geri Vergara MD [address] [place] [id number] Physician Orthopaedic Surgery 09/26/22 Dee Mireles APRN-HEEL TOP LIFT SPLITTER [address] [place] [address] [address] [place] [phone] DRYWALL STRIPPER HELPER Anesthesiology 03/27/23 Manufacturing Laborer Relationship Specialty Start Date End Date Geri Vergara MD [address] [place], [place] [phone] Physician Orthopaedic Surgery 09/26/22 Dee Mireles APRN-HEEL TOP LIFT SPLITTER [address] [place] [address] DR [place] [phone] DRYWALL STRIPPER HELPER Anesthesiology 03/27/23 Manufacturing Laborer Relationship Specialty Start Date End Date Geri Vergara MD [address] [place] [id number] Physician Orthopaedic Surgery 09/26/22 Dee Mireles APRN-HEEL TOP LIFT SPLITTER [address] [place] [address] [place] [address] DRYWALL STRIPPER HELPER Anesthesiology 03/27/23 Scheduled Active and Recently Administ ered Medications (unrecognized section and content) Medication Order 08/03/2021 08/04/2021 08/05/2021 acetaminophen (TYLENOL) tablet 650 mg (COMPLETED) 650 mg, Oral, ONCE, On Wed08/05/21 at 1230, For 1 dose, Maximum dose of acetaminophen is 4000 mg from all sources in 24 hours., Pre-op (day of surgery) 1259 (Given - Provid er: Aditi Felton RN) clindamycin (CLEOCIN) 900 mg in dextrose 5 % 50 mL IVPB (COMPLETED) 900 mg, IntraVENous, ONCE, 1 dose, On Wed08/05/21 at 1300 1427 (New Bag - Prov ider: Zenon Baltazar RN)1447 (Stopped - Provider: Zenon Baltazar RN) famotidine (PEPCID) injection 20 mg (COMPLETED) 20 mg, IntraVENous, ONCE, On Wed08/05/21 at 1230, For 1 dose, Administer over [...] IntraVENous, at 100 mL/hr, CONTINUOUS, Starting on Wed08/05/21 at 1230, Pre-op (day of surgery) 1230 [...] in 24 hours., PACU only lidocaine-EPINEPHrine 2 percent-1:[id number] injection (CANCELED) PRN, Starting on Wed08/05/21 at [...] DATE CREATED AUTHOR AUTHOR'S ORGANIZ ATION 11/11/2022 [facility] DATE CREATED AUTHOR AUTHOR'S ORGANIZ ATION 11/25/2022 [facility] DATE CREATED AUTHOR AUTHOR'S ORGANIZ ATION 03/26/[address] [facility] DATE CREATED AUTHOR AUTHOR'S ORGANIZ ATION 06/24/2023 [employer] Reason for Visit (unrecogniz ed section and content) Specialty Diagnoses / Procedures Referred By Kyraac t Referred To Contact Radiology Diagnoses Spinal stenosis of lumbar region, unspecified whether neurogenic claudication present Procedures MR NEURO IMAGE IMPORT(WHIT) DOWNLOAD POWERSHARE IMAGES TO Geri Garay MD [address] [place] [address] [facility] [[email or web address]] DIAGNOSTIC RADIOLOGY [address] [place] [address] [place] [address] Referral ID Status Reason Start Date Expiration Date Visits Re quested Visits Authorized [id number] Closed 09/23/2022 09/23/2023 1 1 Specialty Diagnoses / Procedures Referred By Rebekah lara Referred To Contact Radiology Diagnoses Myelopathy (HCC) Procedures MR NEURO IMAGE IMPORT(WHIT) DOWNLOAD POWERSHARE IMAGES TO Geri Garay MD [address] [place] [address] [facility] [[email or web address]] DIAGNOSTIC RADIOLOGY [address] [place] [address] [place] [address] Referral ID Status Reason Start Date Expiration Date Visits Re quested Visits Authorized [id number] Closed 10/26/2022 10/26/2023 1 1 Reason Comments Neck pain Reason Comments Leg/thigh symptoms Reason Comments Monitoring/follow-up Specialty Diagnoses / Procedures Referred By Rebekah t Referred To Contact Radiology Diagnoses Cervical spondylosis with myelopathy Procedures CT C-SPINE W/O CONTRAST Geri Vergara MD [address] [place] [address] [facility] [[email or web address]] CT SCAN Referral ID Status Reason Start Date Expiration Date Visits Re quested Visits Authorized [id number] Closed 02/15/2023 02/15/2024 1 1 Specialty Diagnoses / Procedures Referred By Rebekah t Referred To Contact General Surgery Diagnoses Cervical spondylosis with myelopathy Cervical spondylosis with myelopathy [M47.12] Procedures LAMINOPLASTY, CERVICAL, W/SPINAL CORD DECOMPRESS, 2/> VERTEBRAL SEGMENTS W/POST BONE RECONSTRUCT LAMINOPLASTY, POSTERIOR CERVICAL Geri Vergara MD [address] [place] [address] [facility] [address] [place] [id number] Phone: [phone] Referral ID Status Reason Start Date Expiration Date Visits Re quested Visits Authorized [id number] 3 Reason Onset Date Comments Health Information 04/09/2023 Reason Comments Post Op Check Reason Onset Date Comments Health Information 05/04/2023 Reason Comments Post Op Check Specialty Diagnoses / Procedures Referred By Rebekah t Referred To Contact Radiology Diagnoses Cervical spondylosis with myelopathy Procedures XR C-SPINE FLEX/EXT ONLY 2 VIEWS Geri Vergara MD [address] [place] [address] [facility] [[email or web address]] DIAGNOSTIC RADIOLOGY [address] [place] [address] Referral ID Status Reason Start Date Expiration Date Visits Re quested Visits Authorized [id number] Closed 06/16/2023 06/15/2024 1 1 FOR RECORDS [...] BE BASED ON THE PRIMARY CLINICAL RECORDS. [facility]. provides no warranty or guarantee of the accuracy or completeness of information in this document.
[2023-07-13 08:22] VITALS: BP 143/83; PULSE 76; RESP 16; TEMP 36.4; O2SAT 99
[2023-07-13 08:24] LABS: Glucometer 124 mg/dL (74-106)
[2023-07-13 08:56] VITALS: BP 155/72; PULSE 75; RESP 18; O2SAT 98
[2023-07-13 08:58] VITALS: BP 154/72; PULSE 73; RESP 18; O2SAT 98
[2023-07-13] MEDS: BUPIVACAINE HCL 0.25% PF 25 MG/10 ML VIAL 4 ML INJ (09:01)
[2023-07-13] MEDS: IOHEXOL 240 MG/ML - 10 ML VIAL 24 MG INJ (09:01)
[2023-07-13] MEDS: METHYLPREDNISOLONE ACETATE 40 MG/ML VIAL INJ (09:01)
--- NOTE | 2023-07-13 10:14 | P.ON_ITS ---
Date of procedure: 07/13/23 Pre-op diagnosis: Left hip osteoarthritis Post-op diagnosis: same as pre-op Procedure: Procedure: Left Hip joint injection Pre & postoperative diagnosis: pain secondary to osteoarthritis. Immediate complications none. Anesthesia: 2% lidocaine plain for skin wheal. After informed consent was obtained, patient brought to the OR placed in the supine position. Skin overlying the area was prepped and draped using betadine. 25-gauge 1/2 inch needle was used for skin wheal over the medial aspect of the joint identified under fluoroscopy. Omnipaque dye was used to confirm needle tip placement within the hip joint space 0.5 mL use of the injection. Subseq uently Depomedrol 40mg and Marcaine 0.25% 4ml was injected into the space. No indication of intravascular or intraneuronal needle tip placement or injection was noted post procedure. The needle was removed, patient transferred to Recovery room in stable condition to discharged home after meeting criteria. Anesthesia: Local Surgeon: Jarek Valenzuela Condition: stable
== END 2023-07-13 09:06 | disposition home or self-care (01) ==
LOC: SURGOUT 08:06
PROVIDERS: PCP Internal Medicine; Visit Provider Anesthesiology Pain Medicine
DX: M16.12 Unilateral primary osteoarthritis, left hip (principal); Z79.84 Long term (current) use of oral hypoglycemic drugs
CPT/HCPCS: 20610; 36415; 77002; 82948; J0665; J1030; Q9966

== ENCOUNTER 2023-07-21 11:09 | Outpatient (OUT) | payer MEDICARE, SELFPAY ==
--- NOTE | 2023-07-21 11:34 | PM.CN ---
Consult Note: HPI Data of Consult Patient: known to practice within the last 3 years Requesting Physician: Marcella Cuenca NP Primary Care Provider: COOPER ELLER Consult Narrative Reason for consult: procedure f/u Narrative: Ashlee Banerjee a pleasant 72 year old female presents for evaluation of chronic low back pain and left hip pain. Today pain 0.5/10. Patient reporting significant relief from current medication regimen and greater than 90% improvement from left hip injection with Dr Valenzuela. Patient would like to continue current medication regimen as needed and is continuing PT. 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 (ICD-10) Osteoarthritis ?M19.90 - Unspecified osteoarthritis, unspecified site (ICD-10) Cervical myelopathy ?G95.9 - Disease of spinal cord, unspecified (ICD-10) Hypothyroid ?E03.9 - Hypothyroidism, unspecified (ICD-10) Diabetes ?E11.9 - Type 2 diabetes mellitus without complications (ICD-10) High cholesterol ?E78.00 - Pure hypercholesterolemia, unspecified (ICD-10) HTN (hypertension) ?I10 - Essential (primary) hypertension (ICD-10) Surgical History History of bunionectomy of both great toes ?Z98.890 - Other specified postprocedural states (ICD-10) History of sinus surgery ?Z98.890 - Other specified postprocedural states (ICD-10) H/O excision of ganglion cyst ?Z98.890 - Other specified postprocedural states (ICD-10) History of repair of rotator cuff ?Z98.890 - Other specified postprocedural states (ICD-10) History of incisional hernia repair ?Z98.890 - Other specified postprocedural states (ICD-10) ?Z87.19 - Personal history of other diseases of the digestive system (ICD-10) History of hysterectomy ?Z90.710 - Acquired absence of both cervix and uterus (ICD-10) History of total knee arthroplasty ?Z96.659 - Presence of unspecified artificial knee joint (ICD-10) Meds Home Medications and Allergies Home Medications Medication Instructions Recorded Confirmed Type acidophilus 100 million 1 cap PO DAILY 01/11/23 07/13/23 History cell-pectin, citrus 10 mg capsule (Probiotic Acidophilus-Pectin) aspirin 81 mg tablet,delayed 81 mg PO DAILY 01/11/23 07/13/23 History release atorvastatin 20 mg tablet 20 mg PO DAILY 01/11/23 07/13/23 History calcium citrate 200 mg (950 mg) 200 mg PO TID 01/11/23 07/13/23 History tablet carvedilol 25 mg tablet 25 mg PO Q12H 01/11/23 07/13/23 History cetirizine 5 mg tablet (Allergy 5 mg PO DAILY PRN allergy symptoms 01/11/23 07/13/23 History Relief (cetirizine)) cholecalciferol (vitamin D3) 50 2,000 unit PO DAILY 01/11/23 07/13/23 History mcg (2,000 unit) capsule cyclosporine 0.05 % eye drops in a 1 drp ophthalmic (eye) Q12H 01/11/23 07/13/23 History dropperette (Restasis) hydrochlorothiazide 12.5 mg tablet 12.5 mg PO DAILY 01/11/23 07/13/23 History levothyroxine 100 mcg tablet 100 mcg PO DAILY 01/11/23 07/13/23 History meloxicam 15 mg tablet 15 mg PO DAILY 01/11/23 07/13/23 History metformin 500 mg tablet 500 mg PO BID 01/11/23 07/13/23 History olopatadine 0.2 % eye drops (Eye 1 drp ophthalmic (eye) DAILY 01/11/23 07/13/23 History Allergy Itch Relief) omega 5-gxn-fmz-fish oil 100 1 cap PO DAILY 01/11/23 07/13/23 History mg-160 mg-1,000 mg capsule (Fish Oil) trazodone 50 mg tablet 100 mg PO BEDTIME 01/11/23 07/13/23 History triamcinolone acetonide 55 mcg 2 spray intranasal DAILY 01/11/23 07/13/23 History nasal spray aerosol (24 Hour Nasal Allergy) ursodiol 300 mg capsule 300 mg PO DAILY 01/11/23 07/13/23 History valsartan 320 mg tablet 320 mg PO DAILY 01/11/23 07/13/23 History Allergies Allergy/AdvReac Type Severity Reaction Status Date / Time Penicillins Allergy Severe Verified 07/13/23 08:15 morphine Allergy Mild Rash Verified 07/13/23 08:15 nickel Allergy Mild Rash Verified 07/13/23 08:15 sulfite Allergy Watery Eye Verified 07/13/23 08:15 Exam Constitutional Documenting provider has reviewed patient's vital signs: yes Common normals: no apparent distress, oriented x3, healthy appearing, alert and well nourished General appearance: cooperative HENMT Common normals: normocephalic, hearing grossly normal bilaterally and moist oral mucous membranes Head and scalp: normocephalic Eye Common normals: PERRL Pupil: PERRL Neck & C-Spine Common normals: full ROM General: normal visual inspection Chest Common normals: inspection of chest normal Respiratory Common normals: normal respiratory effort, no retractions and no use of accessory muscles Back & Pelvis Other: facet loading positive on left side. Extremity Other: no pain over IT band or ischial bursa negative internal and external log roll of left hip Neuro Common normals: oriented x3, CN's II-XII intact bilaterally, moves all extremities, no focal motor deficits, no sensory deficits noted and deep tendon reflexes 2+ bilaterally Sensorium/orientation: alert Motor exam: strength 5/5 throughout and no movement abnormalities noted Psych Common normals: mental status grossly normal, thought process normal, cooperative, affect normal, speech normal and activity/motor behavior normal Speech: normal speech Thought process: normal thought process Results Additional Findings Additional findings: I have checked an OARRS report on this patient today and there are no aberrancies noted in the prescribing history.?? A drug screen was completed and reviewed within the last year, and if there has not been a drug screen completed we ordered one today to monitor higher risk, state monitored pain medication use. As part of providing excellent, safe, comprehensive care, the following was completed at our patient's visit: 1. A medication reconciliation and review to ensure accurate knowledge of current/active medications, including asking our patients to inform us about any [id number]-[id number] medications or herbal remedies/nutritional supplements/alternative remedies. 2. A review to specifically ensure our patients have had annual screening for: elevated body mass index (BMI), tobacco use, screening for depression, and screening for unhealthy alcohol use. When screening is concerning, patients are provided with education and the specific recommendation to discuss the concerning health issue and treatment options with their primary care provider. Assessment and Plan Assessment and Plan (1) Left hip pain: (2) Ischial bursitis of left side: (3) Lumbar spondylosis: Plan decrease mobic to 7.5 once-twice daily or 15mg daily as needed mild to moderate pain f/u 6 months, sooner if needed
== END 2023-07-21 11:10 | disposition home or self-care (01) ==
LOC: PM 11:15
PROVIDERS: PCP Internal Medicine; Visit Provider Nurse Practitioner
DX: M25.552 Pain in left hip (principal); M70.72 Other bursitis of hip, left hip; M47.816 Spondylosis without myelopathy or radiculopathy, lumbar region
CPT/HCPCS: G0463

== ENCOUNTER 2023-09-21 11:41 | Outpatient (OUT) | payer MEDICARE, SELFPAY ==
[2023-09-21 12:19] LABS: Microalbumin Urine Random <1.3 mg/dL (<=30.0)
[2023-09-21 12:20] LABS: Estimated Average Glucose 126 mg/dL
[2023-09-21 12:37] LABS: Alanine Aminotransferase 54 U/L (14-59); Albumin Globulin Ratio 0.8; Albumin Level 3.2 g/dL (3.4-5.0); Alkaline Phosphatase 197 U/L (46-116); Anion Gap 10.5; Aspartate Amino Transferase 52 U/L (15-37); BUN Creatinine Ratio 24.8; Bilirubin Total 0.5 mg/dL (0.2-1.0); Calcium 9.8 mg/dL (8.5-10.1); Carbon Dioxide 29.5 mmol/L (21.0-32.0); Chloride 104 mmol/L (98-107); Chol HDL Ratio 2.6; Cholesterol 116 mg/dL (<=200); Estimated GFR (African America 57 (>=60); Estimated GFR (Non-African Ame 47 (>=60); Globulin 3.8 g/dL; Glucose 108 mg/dL (74-106); HDL Cholesterol 45 mg/dL (40-60); LDL Cholesterol Calculated 56.6 mg/dL; Sodium 140 mmol/L (136-145); Triglycerides 72 mg/dL (<=150); VLDL CHOLESTEROL 14.4 mg/dL
== END 2023-09-21 11:42 | disposition home or self-care (01) ==
LOC: LAB 11:43
PROVIDERS: PCP Internal Medicine; Visit Provider Internal Medicine
DX: E78.2 Mixed hyperlipidemia (principal); E11.9 Type 2 diabetes mellitus without complications; I10 Essential (primary) hypertension
CPT/HCPCS: 36415; 80053; 80061; 82043; 83036

== ENCOUNTER 2023-09-30 12:30 | Outpatient (OUT) | payer MEDICARE, SELFPAY ==
[2023-09-30 14:46] LABS: Percent Iron Saturation 15.9 %
[2023-10-01 04:12] LABS: AFP, Serum, Tumor Marker 2.5 ng/mL (0.0-9.2)
== END 2023-09-30 12:31 | disposition home or self-care (01) ==
LOC: LAB 12:30
PROVIDERS: PCP Internal Medicine
DX: K74.3 Primary biliary cirrhosis (principal)
CPT/HCPCS: 36415; 82105; 82306; 82728; 83540; 83550

== ENCOUNTER 2023-11-04 10:08 | Outpatient (OUT) | payer MEDICARE, SELFPAY ==
--- NOTE | 2023-11-04 10:12 | US_ITS ---
The [address] [address] Patient Name: MASSIMO CALLAHAN MRN: [id number] date: 1950 Sex: F Assigned Patient Location: US Current Patient Location: US Accession/Order Number: [id number] Exam Date: 11/04/2023 10:13 Report Date: 11/04/2023 11:35 At the request of: NON-STAFF PHYSICIAN Procedure: US right upper quadrant EXAM: US right upper quadrant HISTORY: Primary Biliary Cholangitis K74.3 Thrombocytopenia D69.6 COMPARISON: 12/03/2022 TECHNIQUE: Grayscale and color ultrasound FINDINGS: the liver appears small in size nodular contour with diffuse increase in hepatic echotexture. No focal mass. Hepatopedal flow in the main portal vein with velocity 23 cm/s. The gallbladder is enlarged measuring 11.1 cm in length. The wall measures 1.3 mm. Identified in the posterior gallbladder wall is 1.5 x 1.3 x 1.2 cm mixed echogenicity mass with vascularity felt to be artifact from calcification, this was noted to be mobile by the technologist. The common bile duct measures 5.9 mm. Negative sonographic Salomon sign. The visualized pancreatic body is normal. The right kidney 5 mm area of anechoic echogenicity of the lower pole, simple cyst US/US right upper quadrant IMPRESSION: Small nodular echogenic liver suggesting cirrhosis Gallbladder hydrops with cholelithiasis Electronically authenticated by: WILVER CARTAGENA Date: 11/04/2023 11:35
--- NOTE | 2023-11-04 10:15 | US_ITS ---
[address] [address] Patient Name: MASSIMO CALLAHAN MRN: [id number] date: 1950 Sex: F Assigned Patient Location: US Current Patient Location: Accession/Order Number: [id number] Exam Date: 11/04/2023 10:13 Report Date: 11/04/2023 11:36 At the request of: NON-STAFF PHYSICIAN Procedure: US abdomen limited EXAMINATION: US abdomen limited HISTORY: Primary Biliary Cholangitis K74.3 Thrombocytopenia D69.6 COMPARISON: 12/03/2022 FINDINGS: The spleen measures 12.7 x 13.5 x 5.9 cm, normal in contour and echotexture US/US abdomen limited IMPRESSION: Prominent spleen size, stable Electronically authenticated by: WILVER CARTAGENA Date: 11/04/2023 11:36
== END 2023-11-04 10:09 | disposition home or self-care (01) ==
LOC: US 10:08
PROVIDERS: PCP Internal Medicine
DX: K74.3 Primary biliary cirrhosis (principal); D69.6 Thrombocytopenia, unspecified
CPT/HCPCS: 76705

== ENCOUNTER 2023-12-08 07:49 | Outpatient (RCR) | payer MEDICARE, SELFPAY ==
--- NOTE | 2023-12-08 08:25 | PC.NURSE ---
0803: Pt. to [facility] amb. for straight cath. Explained procedure to patient, questions addressed. Pt. to supine position on bed. Using sterile technique, pt. straight cath'd for large amount clear yellow urine. Cath removed, salinas care provided. Pt. tolerated without c/o discomfort. 0820: Pt. d/c'd amb to home.
[2023-12-08 15:10] LABS: Bilirubin Urine NEGATIVE (NEGATIVE); Blood Urine NEGATIVE (NEGATIVE); Clarity Urine CLEAR (CLEAR); Color Urine YELLOW (YELLOW); Glucose Urine UA NEGATIVE (NEGATIVE); Ketones Urine NEGATIVE (NEGATIVE); Leukocyte Esterase Urine NEGATIVE (NEGATIVE); Nitrite Urine NEGATIVE (NEGATIVE); Protein Urine NEGATIVE (NEG/TRACE); Specific Gravity Urine >=1.030 (1.005-1.025); Urobilinogen Urine 0.2 EU/dL (0.2-1.0); pH Urine 5.5 (5.0-9.0)
[2023-12-08 15:25] LABS: Urine Microscopic Indicated NO
== END 2023-12-22 23:59 | disposition home or self-care (01) ==
LOC: INF 07:49
PROVIDERS: PCP Internal Medicine; Visit Provider Personal Emergency Response Attendant
DX: N30.00 Acute cystitis without hematuria (principal)
CPT/HCPCS: 51701; 81003

== ENCOUNTER 2024-02-15 13:51 | Outpatient (OUT) | payer MEDICARE, SELFPAY ==
--- NOTE | 2024-02-15 13:54 | MM_ITS ---
Patient Name: MASSIMO CALLAHAN MR#: [id number] : 1950 Exam Date: 02/15/2024 Ordering Doctor: DR ZEUS BERNARD [facility] RADIOLOGY REPORT PROCEDURE: MM TOMOSYNTHESIS SCREENING BI COMPARISON: MM TOMOSYNTHESIS SCREENING BI, 12/28/2022. MG MAMM SCREEN 3D KRISH CAD, 12/25/2021. MG MAMM SCREEN 3D KRISH CAD, 12/23/2020. MG MAMM KRISH SCRN W CAD DIG, 12/07/2012. INDICATIONS: Screening Calculator Name NCI Breast Cancer Risk Assessment Tool 5 Year Breast Cancer Risk 2.90% Lifetime Breast Cancer Risk 6.70% Personal Breast Cancer No Personal Ovarian Cancer No Treatments None Family Cancers Sister with thyroid cancer at age 63. LOCATION: The [facility] BREAST COMPOSITION: The breasts are heterogeneously dense,which may obscure small masses. FINDINGS: DIAGNOSTIC CATEGORY 2--BENIGN FINDING: RIGHT BREAST: No significant suspicious finding. Scattered benign-appearing calcifications are present. No significant change has occurred. LEFT BREAST: No significant suspicious finding. Scattered benign-appearing calcifications are present. No significant change has occurred. RECOMMENDATIONS: ROUTINE MAMMOGRAM AND CLINICAL EVALUATION IN 12 MONTHS. PLEASE NOTE: A NORMAL MAMMOGRAM DOES NOT EXCLUDE THE POSSIBILITY OF BREAST CANCER. A CLINICALLY SUSPICIOUS PALPABLE LUMP SHOULD BE BIOPSIED. Dictated by: Nikko Barbosa M.D. on 02/16/2024 at 15:35 Approved by: iNkko Barbosa M.D. on 02/16/2024 at 15:37
== END 2024-02-15 13:52 | disposition home or self-care (01) ==
LOC: MAMMO 13:51
PROVIDERS: PCP Internal Medicine; Visit Provider Midwife
DX: Z12.31 Encounter for screening mammogram for malignant neoplasm of breast (principal); Z85.850 Personal history of malignant neoplasm of thyroid
CPT/HCPCS: 77063; 77067

== ENCOUNTER 2024-03-15 09:22 | Outpatient (OUT) | payer MEDICARE, SELFPAY ==
[2024-03-15 10:05] LABS: Microalbumin Urine Random <1.3 mg/dL (<=30.0)
[2024-03-15 10:37] LABS: Estimated Average Glucose 114 mg/dL; Glycohemoglobin A1C 5.6 % (4.5-6.2)
== END 2024-03-15 09:23 | disposition home or self-care (01) ==
LOC: LAB 09:24
PROVIDERS: PCP Internal Medicine; Visit Provider Internal Medicine
DX: E11.9 Type 2 diabetes mellitus without complications (principal)
CPT/HCPCS: 36415; 82043; 83036

== ENCOUNTER 2024-05-02 11:07 | Outpatient (OUT) | payer MEDICARE, SELFPAY ==
[2024-05-02 11:52] LABS: Estimated Average Glucose 128 mg/dL; Glycohemoglobin A1C 6.1 % (4.5-6.2)
[2024-05-02 11:56] LABS: Calcium 9.5 mg/dL (8.5-10.1); Carbon Dioxide 29.3 mmol/L (21.0-32.0); Chloride 107 mmol/L (98-107); Estimated GFR (African America 53 (>=60 mL/min/1.73m^2); Estimated GFR (Non-African Ame 44 (>=60 mL/min/1.73m^2); Glucose 118 mg/dL (74-106); Potassium 4.3 mmol/L (3.5-5.1); Sodium 142 mmol/L (136-145)
== END 2024-05-02 11:08 | disposition home or self-care (01) ==
LOC: LAB 11:09
PROVIDERS: PCP Internal Medicine; Visit Provider Internal Medicine
DX: E11.9 Type 2 diabetes mellitus without complications (principal)
CPT/HCPCS: 36415; 80048; 82043; 83036

== ENCOUNTER 2024-09-26 10:14 | Outpatient (OUT) | payer MEDICARE, SELFPAY ==
[2024-09-26 10:57] LABS: Estimated Average Glucose 137 mg/dL; Glycohemoglobin A1C 6.4 % (4.5-6.2)
[2024-09-26 11:04] LABS: Chol HDL Ratio 2.3; Cholesterol 116 mg/dL (<=200); Estimated GFR (African America 44 (>=60 mL/min/1.73m^2); Estimated GFR (Non-African Ame 36 (>=60 mL/min/1.73m^2); HDL Cholesterol 51 mg/dL (40-60); Hematocrit 28.4 % (36.0-48.0); Hemoglobin 9.1 g/dL (12.0-16.0); LDL Cholesterol Calculated 44.4 mg/dL; Mean Corpuscular Hemoglobin 29.7 pg (26.7-34.0); Mean Corpuscular Volume 92.8 fL (81.0-99.0); Mean Platelet Volume 12.2 fL (9.5-13.5); Platelet Count 91 10^3/uL (150-450); Red Blood Count 3.06 10^6/uL (4.20-5.40); Red Cell Distribution Width 13.8 % (11.0-15.0); Thyroid Stimulating Hormone 2.112 uIU/mL (0.358-3.740); Triglycerides 103 mg/dL (<=150); VLDL CHOLESTEROL 20.6 mg/dL; White Blood Count 4.4 10^3/uL (4.0-11.0)
[2024-09-26 11:40] LABS: Eosinophils Absolute Manual 0.17 10^3/uL (0.00-0.70); Lymphocytes Absolute Manual 1.14 10^3/uL (1.20-3.80); Monocytes Absolute Manual 0.17 10^3/uL (0.30-0.80)
[2024-09-26 12:55] LABS: Creatinine Urine Random 30.17 mg/dL (20.00-300.00); Microalbumin Urine Random 1.3 mg/dL (<=30.0)
== END 2024-09-26 10:15 | disposition home or self-care (01) ==
LOC: LAB 10:15
PROVIDERS: PCP Internal Medicine; Visit Provider Internal Medicine
DX: R10.84 Generalized abdominal pain (principal); Z98.890 Other specified postprocedural states; M51.369 Other intervertebral disc degeneration, lumbar region without mention of lumbar back pain or lower extremity pain
CPT/HCPCS: 36415; 74177; 80061; 82043; 82565; 82570; 83036; 84156; 84443; 85007; 85027; Q9967

== ENCOUNTER 2024-11-21 15:59 | Outpatient (OUT) | payer MEDICARE, SELFPAY ==
--- OUTSIDE RECORDS SUMMARY | 2024-11-09 13:45 | XMS_ITS | Encounter Summary ---
Author Organization [facility] Address [address] [place] [address] Care Team Providers Care Grated Cheese Maker Name Role Phone Magnus Shay MD Primary Care Provider [phone] Reason for Visit * Reason Comments Urinary Frequency at Night Patient is he re today for her 3 month follow up for Nocturia. The provider increased the Interstim settings at her last visit on 08/03/2024, but the patient reports this did not help her nocturia at all. Patient continues to get up every 90 minutes at night to urinate. Pt reports she wears a brief at night and it is saturated. Pt often has to change her brief during the night. Patient reports she urinates every 90 minutes to 1 hr during the day. Patient wears a pad and changes it bid. Other Patient denies hemat uria, dysuria, fever or flank pain. Pt was hospitalized for internal bleeding since her last office visit. Encounter Details Date Type Department Care Team (Late st Contact Info) Description 11/09/2024 1:45 PM EDT Office Visit [facility] UROLOGY Part of [address] [place] [address] Sandra Alvares, SANITATION TECHNICIAN - ARMATURE VARNISHER [address] [place] [address] [address] [place] [address] Nocturia (Primary Dx); OAB (overactive bladder); Mixed incontinence Social History Tobacco Use Types Packs/Day Years Used Date Smoking Tobacco: Former Cigarettes 0.3 8 1 967 - 1974 Smokeless Tobacco: Never Comments:smoked socially on occassion until 1999 Alcohol Use Standard Drinks/Week Comments Not Currently 0 (1 standard drink = 0.6 oz pur e alcohol) social [facility] Utilities Answer Date Recorded In the past 12 months has th e electric, gas, oil, or water company threatened to shut off services in your home? No 09/28/2024 Humiliation, Afraid, Rape, and Kick questionnair e Answer Date Recorded Within the last year, have y ou been afraid of your partner or ex-partner? No 03/27/2024 Within the last year, have y ou been humiliated or emotionally abused in other ways by your partner or ex-partner? No Within the last year, have y ou been kicked, hit, slapped, or otherwise physically hurt by your partner or ex-partner? No 03/27/2024 Within the last year, have y ou been raped or forced to have any kind of sexual activity by your partner or ex-partner? No 03/27/2024 Social Connection and Isolat ion Panel [NHANES] Answer Date Recorded In a typical week, how many times do you talk on the phone with family, friends, or neighbors? More than three times a week 03/27/2024 How often do you get togethe r with friends or relatives? More than three times a week 03/27/2024 How often do you attend [facility] or worship services? 1 to 4 times per year 03/27/2024 Do you belong to any clubs o r organizations such as yazdanism groups, unions, fraternal or athletic groups, or school groups? Yes 03/27/2024 How often do you attend meet ings of the clubs or organizations you belong to? More than 4 times per year 03/27/2024 Are you , , di vorced, , never , or living with a partner? Never 03/27/2024 AUDIT-C Answer Date Recorded Q1: How often do you have a drink containing alcohol? Never 03/27/2024 Q2: How many drinks containi ng alcohol do you have on a typical day when you are drinking? Patient does not drink Q3: How often do you have si x or more drinks on one occasion? Never 03/27/2024 Overall Financial Resource Strain (CARDIA) Answe r Date Recorded How hard is it for you to pa y for the very basics like food, housing, medical care, and heating? Not hard at all 03/27/2024 PHQ-2 Answer Date Recorded PHQ-9 Total Score 2 10/11/2024 [facility] - Occupational Stress Questionnaire Answer Date Recorded Do you feel stress - tense, restless, nervous, or anxious, or unable to sleep at night because your mind is troubled all the time - these days? To some extent 03/27/2024 Exercise Vital Sign Answer Date Recorde d On average, how many days pe r week do you engage in moderate to strenuous exercise (like a brisk walk)? 3 days 03/27/2024 On average, how many minutes do you engage in exercise at this level? 20 min 03/27/2024 Hunger Vital Sign Answer Date Recorded Within the past 12 months, y ou worried that your food would run out before you got the money to buy more. Never true 09/29/19 25 Within the past 12 months, t he food you bought just didn't last and you didn't have money to get more. Never true 09/28/2024 PRAPARE - Transportation Answer Date Re corded In the past 12 months, has l ack of transportation kept you from medical appointments or from getting medications? No 12/2024 In the past 12 months, has l ack of transportation kept you from meetings, work, or from getting things needed for daily living? No 09/28/2024 Housing Stability Vital Sign Answer Raiel e Recorded Unable to Pay for Housing in the Last Year Not o n file 10/01/2023 Number of Places Lived in the Last Year Not on f ile 10/01/2023 In the last 12 months, was t here a time when you did not have a steady place to sleep or slept in a fpc (including now)? No 10/01/2023 Housing Stability Vital Sign Answer Ariel e Recorded In the last 12 months, was t here a time when you were not able to pay the mortgage or rent on time? No 09/28/2024 In the past 12 months, how m any times have you moved where you were living? 0 09/28/2024 At any time in the past 12 m [facility], were you homeless or living in a fpc (including now)? No 09/28/2024 Food Insecurity Answer Date Recorded Within the past 12 months, y ou worried that your food would run out before you got the money to buy more. 1 09/28/2024 Within the past 12 months, t he food you bought just didn't last and you didn't have money to get more. 1 09/28/2024 Interpersonal Safety Domain Source: IP Abuse Scr eening Answer Date Recorded Physical abuse Denies 09/28/2024 Verbal abuse Denies 09/28/2024 Emotional abuse Denies 09/28/2024 Financial abuse Denies 09/28/2024 Sexual abuse Denies 09/28/2024 Comments No Sex and Gender Information Value Date Recorded Sex Assigned at Female 10/18/2019 5:43 PM EDT Legal Sex Female 10:08 AM EST Gender Identity Female 10/18/2019 5:43 PM EDT Sexual Orientation Straight 10/18/2019 5: 43 PM EDT documented as of this encounter Last Filed Vital Signs Vital Sign Reading Time Taken Comments Blood Pressure 138/70 11/09/2024 1:46 PM EDT Pulse - - Temperature 36.5 C (97.7 F) 11/09/2024 1:46 PM EDT Respiratory Rate - - Oxygen Saturation - - Inhaled Oxygen Concentration - - Weight 69.4 kg (153 lb) 11/09/2024 1:46 PM EDT Height - - Body Mass Index 28.91 10/11/2024 1:49 PM EDT documented in this encounter Patient Instructions * Patient Instructions* Sandra Alvares, SANITATION TECHNICIAN - ARMATURE VARNISHER - 11/09/2024 1:46 PM EDT Estrace: insert one inch of cream inside the vagina and place an additional dime sized amount to the urethra and inner labia every night for two weeks then three nights per week thereafter. DO NOT use plastic applicator. Survey: You may be receiving a survey from [employer] regarding your visit today. Please complete the survey to enable us to provide the highest quality of care to you and your family. If you cannot score us as very good on any question, please call the office to discuss how we couldhave major experience exceptional. Thank you Your Urology Care Team. documented in this encounter Progress Notes * Jasmina Tolbert RN - 11/09/2024 1:51 PM EDT Bladderscan performed in office today: Pt voided - 100 mL, PVR - 7 mL * Sandra Alvares APRN - CNP - 11/09/2024 1:49 PM EDT History Symptoms: daytime frequency every 1.5 hours, with severe sudden urgency and urge incontinence. 3 pads per day. nocturia ×1-2. Mild OLEG, not as bothersome as the urge incontinence/OAB. Previous treatment: 4 or 5 anticholinergics including Ditropan, Detrol, and Vesicare (thinks 1 or 2others in addition) as well as Myrbetriq. variable improvement. intolerable side effects. 04/07/2016 Interstim device placed Tried program #3 (-2 +0), 2.2 V Apr-Jul. Switched to program #2 (-1 +3), 2.3V, in July. [we did attempt program #1 (-0 +3) but pt couldn't feel stim until 4.2V and still very weak at that point so we chose not to try this program] Marked improvement in symptoms. Battery life: 85-100%, 60-70 monthsin Aug 20162017 Urinates every 2-2.5 hours during the day, nocturia 1-2 times per night. She is using 1 pad per day, but this is not always wet. She denies urge incontinence. She does have mild stress incontinence with position changes. She denies dysuria or gross hematuria. She is having daily bowel movements. Current program: #2, (-1 +3), 2.5 V feels stimulation in the vaginal area Battery life: 71-97%%, 52-71 months 1482 impedence Electrodes fixed: no 12/2018 Current program: #2, (-1 +3), 3.0 V feels stimulation in the buttocks. We did increase stimulation to 3.4. Battery life: 32-57%, 24-44 months Electrodes fixed: no 02/2019 frequency every 1.5-2 hours hours, urgency and worsening urge incontinence. Nocturia is unchanged, 1-2 times per night. She is using 3 pads per day. She denies dysuria, gross hematuria, or constipation. Current program: #2, (-1 +3), 3.4 V feels stimulation in the buttocks. Changed to: #C5, (-1, -0 +3), 3.4 V feels stimulation in the buttocks, perineum 05/2019 patient is doing well. She reports minor issues with urinary frequency and urgency. She doeshave some minor leakage. It is hard to tell whether this is stress or urge. We did go over her bladder irritants with her again today. She has no flank pain nausea vomiting. Current program: #C5, (-1 +3), 3.4 V feels stimulation in the pelvis 10/2020 Urinating every 2-3 hours during the day. She is having a daily bowel movement with MiraLAX and fiber supplementation. She does wear at least 1 pad a day. It is never saturated. Nocturia X 1 She still has occasional stress incontinence. She is interested in pelvic floor rehabilitation for this but would like to wait until she has foot surgery she overall is very happy with her symptoms. 07/2021 - Interstim revision due to device end of life 09/2021 - Increased to 0.8V 10/2021 - Program #2 - increased to 1.1V - perineal 12/2021 - Program changed to #3 1.8V - anus 03/2022 Nocturia every 2 hours. Program 1 (+3, -0). Increased to 2.2. Haworth stimulation down her leg 08/2022 - Program 1 (+3, -0). Increased pulse width to 300. Increased rate to 30. 1.4V, felt stimulation in rectum and down left leg 03/2023 nocturia has improved. She wears 1-2 pads during the day. She states that these are rarely saturated. This is when she holds too long. She urinates every 2-2.5 hours during the day. Nocturia X 2. Sometimes more nocturia. 03/2024 complaints of nocturia. She is having nocturia every hour. She is status post left hip replacement in December. She did go to the [facility] for rehab. She is also having lower extremity swelling.She is wearing compression hose during the day. Her primary care provider did start her on a diuretic, but she has not started this yet. They are visibly edematous today in the office. She denies any dysuria or gross hematuria. Her bowels are moving daily since surgery. Urine culture due to recent hospitalization and stay in a rehab facility, positive for klebsiella I did explain to her that the worsening nocturia is likely due to recent hip replacement and will continue to improve as the hip heals. In addition, due to worsening lower extremity edema this can actually worsen nocturia until the diuretic becomes effective. I did increase her energy to 1.8 V. She did feel the stimulation in her left hip and vaginal area. 07/2024 follow-up for nocturia. At her last visit we did treat her for a positive urine culture. Thenocturia did not improve with antibiotics. She has nocturia approximately every 90 minutes. She denies daytime frequency, urgency or incontinence. PVR is low Changed to Program 5 (+3,-1,-0) 1.2V Today Here today to follow-up for nocturia and overactive bladder. She continues to complain of nocturia every 90 minutes. She was recently hospitalized for internal bleeding. She denies any dysuria or gross hematuria. Plan PCR urine Start estradiol nightly for two weeks, then three nights per week Increased stim to 1.6V felt stim in her entire seat F/u in 3 months documented in this encounter Plan of Treatment Upcoming Encounters Date Type Department Care Team (Late st Contact Info) Description 12/12/2024 2:00 PM EDT Office Visit Magnus Shay MD [address] [place] [address] [place] [address] Magnus Shay MD [address] [facility] [place] [address] 2 month gc 12/19/2024 2:15 PM EDT Office Visit [facility] OBSTETRICS & GYNECOLOGY [address] [place] [address] Destinee Coughlin, SANITATION TECHNICIAN - CNM [address] [facility] [address] [place] [address] yearly-last PAP 12/15/2022-Medicare 02/06/2025 2:00 PM EDT Office Visit [facility] UROLOGY [address] [place] [address] Sandra Alvares, SANITATION TECHNICIAN - ARMATURE VARNISHER [address] [place] [address] [address] [place] [address] 3M interstim check. remind patient to charge 04/11/2025 9:50 AM EST Office Visit Magnus Shay MD [address] [place] [address] [place] [address] Magnus Shay MD [address] [place] [address] [place] [address] maw documented as of this encounter Procedures Procedure Name Priority Date/Time Associated Diagnosis Comments CLARA,POST-VOID RES,US,NON-IMAGING Routine 11/09/2024 2:26 PM EDT Nocturia OAB (overactive bladder) Mixed incontinence documented in this encounter Visit Diagnoses Diagnosis Nocturia- Primary OAB (overactive bladder) Hypertonicity of bladder Mixed incontinence Mixed incontinence urge and stress (male)(female) documented in this encounter Additional Health Concerns Assessment Noted Time A fall risk assessment has been complete d for the patient 10/11/2024 1:55 PM EDT A Body Mass Index follow-up plan has been documented for the patient 11/18/2021 4:24 PM EDT documented as of this encounter Care Teams Grated Cheese Maker Relationship Specialty Start Date End Date Magnus Shay MD [address] [place] [address], [address] [place] [id number] PCP - General Internal Medicine 07/20/14 documented as of this encounter
--- OUTSIDE RECORDS SUMMARY | 2024-11-21 16:01 | XMS_ITS | Encounter Summary ---
Author Organization [facility] Address [address] [place] [address] Care Team Providers Care Pharmacist Helper Name Role Phone Andrae Patino MD Unavailable Magnus Shay MD Primary Care Provider [phone] Reason for Visit * Reason Onset Date Comments Labs Only 10/26/2022 Encounter Details Date Type Department Care Team (Late st Contact Info) Description 10/26/2022 Telephone Central Scheduling [address] [place] [address] Kaylen De La Rosa Labs Only Social History Tobacco Use Types Packs/Day Years Used Date Smoking Tobacco: Former Cigarettes Smokeless Tobacco: Never Alcohol Use Standard Drinks/Week Comments Not Currently 0 (1 standard drink = 0.6 oz pur e alcohol) Comments No Sex and Gender Information Value Date Recorded Sex Assigned at Not on file Legal Sex Female 5:30 PM EST Gender Identity Female 11/11/2023 9:47 PM EDT Sexual Orientation Straight 11/11/2023 9: 47 PM EDT documented as of this encounter Miscellaneous Notes * Telephone Encounter - Kaylen De La Rosa - 10/26/2022 8:49 AM EDT GHN TRIAGE (NON-SYMPTOM) MESSAGE Provider: Carol Minor CNP, Dr. Cordova Subject of call: Labs in September Reason for call: Patient states she had labs done around October 08, and Dr. Andrae Patino, of [facility], is concerned that when she had the booster (also in September) could have interfered with her lab work and wanted this relayed to the provider as an FYI. Please call if there are any questions. Dr. Patino, Preferred call back time: [phone] Will warm connect patient to nursing line if symptomatic or if returning call from nurse on same day. If not symptomatic or same day call back a message will be routed and it will be a 24-48 hour turn around time documented in this encounter Plan of Treatment Not on file documented as of this encounter Visit Diagnoses Not on filedocumented in this encounter Care Teams Pharmacist Helper Relationship Specialty Start Date End Date Magnus Shay MD [address] [place] [address], [facility] [place] [address] PCP - General Internal Medicine 11/23/22 Andrae Patino MD [address] [place] [facility] [address] Gastroenterology 11/23/22 documented as of this encounter
--- OUTSIDE RECORDS SUMMARY | 2024-11-21 16:01 | XMS_ITS | Encounter Summary ---
Author Organization [facility] Address [address] [place] [address] Care Team Providers Care Pbx Teacher Name Role Phone Magnus Shay MD Primary Care Provider Encounter Details Date Type Department Care Team (Late Contact Info) Description 04/08/2016 FollowUp Telephone Encounter [facility] General Surgery [address] [place] [address] Candida Randolph RN Social History Tobacco Use Types Packs/Day Years Used Date Smoking Tobacco: Former Cigarettes Q uit: 1975 Smokeless Tobacco: Never Comments:smoked socially on occassion until 1999 Alcohol Use Standard Drinks/Week Comments Yes 0 (1 standard drink = 0.6 oz pur e alcohol) social Comments No Sex and Gender Information Value Date Recorded Sex Assigned at Female 10/18/2019 5:43 PM EDT Legal Sex Female 10:08 AM EST Gender Identity Female 10/18/2019 5:43 PM EDT Sexual Orientation Straight 10/18/2019 5: 43 PM EDT documented as of this encounter Plan of Treatment Upcoming Encounters Date Type Department Care Team (Late Contact Info) Description 12/12/2024 2:00 PM EDT Office Visit Magnus Shay MD [address] [place] [address] Magnus Shay MD [address] [place] [address], [place] [address] 2 month gc 12/19/2024 2:15 PM EDT Office Visit [facility] OBSTETRICS & GYNECOLOGY Part of [address] [place] [address] Destinee Coughlin, SCREEN REPAIRER CRUSHER - CNM [address] [place] [address] [address] [facility] [place] [address] yearly-last PAP 12/15/2022-Medicare 02/06/2025 2:00 PM EDT Office Visit [facility] UROLOGY Part of [address] [place] [phone] Sandra Alvares, SCREEN REPAIRER CRUSHER - LASER BEAM TRIM OPERATOR [address] [place] [address] [address] [facility] [place] [address] 3M interstim check. remind patient to charge 04/11/2025 9:50 AM EST Office Visit Magnus Shay MD [address] [place] [address] [place] [phone] Magnus Shay MD [address] [place] [address] A [place] [id number] maw documented as of this encounter Visit Diagnoses Not on filedocumented in this encounter Additional Health Concerns Assessment Noted Time A fall risk assessment has been complete d for the patient 03/18/2016 3:36 PM EDT documented as of this encounter Care Teams Pbx Teacher Relationship Specialty Start Date End Date Magnus Shay MD [address] [place] [address] [place] [id number] PCP - General Internal Medicine 07/20/14 documented as of this encounter
--- OUTSIDE RECORDS SUMMARY | 2024-11-21 16:01 | XMS_ITS | Encounter Summary ---
Author Organization [facility] Address [address] [place] [address] Care Team Providers Care Groover And Striper Operator Name Role Phone Magnus Shay MD Primary Care Provider [phone] Encounter Details Date Type Department Care Team (Late Contact Info) Description 03/25/2016 FollowUp Telephone Encounter [facility] General Surgery [address] [place] [address] Candida Randolph RN Social History Tobacco Use Types Packs/Day Years Used Date Smoking Tobacco: Former Cigarettes Q uit: 1975 Smokeless Tobacco: Never Comments:smoked socially on occassion until 1999 Alcohol Use Standard Drinks/Week Comments No 0 (1 standard drink = 0.6 oz [...] PM EDT Office Visit Magnus Shay MD [address] [place] [phone] Magnus Shay MD [address] [place] [address], [place] [address] 2 month gc 12/19/2024 2:15 PM EDT Office Visit [facility] OBSTETRICS & GYNECOLOGY Part of [address] [place], [place] [address] Destinee Coughlin, MORNING SHOW HOST - CNM [address] [place] [address] [address] [place] [address] yearly-last PAP 12/15/2022-Medicare 02/06/2025 2:00 PM EDT Office Visit [facility] UROLOGY Part of [address] [place] [address] Sandra Alvares, MORNING SHOW HOST - HEARING EXAMINER [address] [place] [address] [address] [place] [address] 3M interstim check. remind patient to charge 04/11/2025 9:50 AM EST Office Visit Magnus Shay MD [address] [place] [address] [place] [phone] Magnus Shay MD [address] [place] [address] [place] [id number] maw documented as of this encounter Visit Diagnoses Not on filedocumented in this encounter Additional Health Concerns Assessment Noted Time A fall risk assessment has been complete d for the patient 03/18/2016 3:36 PM EDT documented as of this encounter Care Teams Groover And Striper Operator Relationship Specialty Start Date End Date Magnus Shay MD [address] [place] [address] [place] [id number] PCP - General Internal Medicine 07/20/14 documented as of this encounter
--- OUTSIDE RECORDS SUMMARY | 2024-11-21 16:01 | XMS_ITS | Encounter Summary ---
Author Organization [facility] Address [address] [place] [address] Care Team Providers Care Embedded Processor Name Role Phone Maguns Shay MD Primary Care Provider [phone]- [phone] Encounter Details Date Type Department Care Team (Late st Contact Info) Description 03/12/2023 Orders Only Magnus Shay MD [address] [place] [address] [place] [phone] Provider, MD Eduarda Social History Tobacco Use Types Packs/Day Years Used Date Smoking Tobacco: Former Cigarettes 0.3 8 1 967 - 1974 Smokeless Tobacco: Never Comments:smoked socially on occassion until 1999 Alcohol Use Standard Drinks/Week Comments Not Currently 0 (1 standard drink = 0.6 oz pur e alcohol) social Humiliation, Afraid, Rape, and Kick questionnair e Answer Date Recorded Within the last year, have y ou been afraid of your partner or ex-partner? No 03/18/2022 Within the last year, have y ou been humiliated or emotionally abused in other ways by your partner or ex-partner? No Within the last year, have y ou been kicked, hit, slapped, or otherwise physically hurt by your partner or ex-partner? No 03/18/2022 Within the last year, have y ou been raped or forced to have any kind of sexual activity by your partner or ex-partner? No 03/18/2022 Social Connection and Isolat ion Panel [NHANES] Answer Date Recorded In a typical week, how many times do you talk on the phone with family, friends, or neighbors? More than three times a week 03/18/2022 How often do you get togethe r with friends or relatives? Once a week 03/18/2022 How often do you attend chur or moravian services? 1 to 4 times per year 03/18/2022 Do you belong to any clubs o r organizations such as uatsdin groups, unions, fraternal or athletic groups, or school groups? Yes 03/18/2022 How often do you attend meet ings of the clubs or organizations you belong to? More than 4 times per year 03/18/2022 Are you , , di vorced, , never , or living with a partner? Never 03/18/2022 AUDIT-C Answer Date Recorded Q1: How often do you have a drink containing alcohol? Never 03/10/2022 Q2: How many drinks containi ng alcohol do you have on a typical day when you are drinking? Patient does not drink Q3: How often do you have si x or more drinks on one occasion? Never 03/10/2022 Overall Financial Resource Strain (CARDIA) Answe r Date Recorded How hard is it for you to pa y for the very basics like food, housing, medical care, and heating? Not hard at all 09/16/2022 PHQ-2 Answer Date Recorded PHQ-9 Total Score 0 09/16/2022 [facility] ional [facility] - Occupational Stress Questionnaire Answer Date Recorded Do you feel stress - tense, restless, nervous, or anxious, or unable to sleep at night because your mind is troubled all the time - these days? To some extent 03/18/2021 Exercise Vital Sign Answer Date Recorde d On average, how many days pe r week do you engage in moderate to strenuous exercise (like a brisk walk)? Patient declined Minutes of Exercise per Session Not on file 03/10/2022 Hunger Vital Sign Answer Date Recorded Within the past 12 months, y ou worried that your food would run out before you got the money to buy more. Never true 09/17/19 23 Within the past 12 months, t he food you bought just didn't last and you didn't have money to get more. Never true 09/16/2022 PRAPARE - Transportation Answer Date Re corded Lack of Transportation (Medical) Not on file 09/16/2022 In the past 12 months, has l ack of transportation kept you from meetings, work, or from getting things needed for daily living? No 09/16/2022 Housing Stability Vital Sign Answer Ariel e Recorded Unable to Pay for Housing in the Last Year Not o n file 09/16/2022 Number of Places Lived in the Last Year Not on f ile 09/16/2022 In the last 12 months, was t here a time when you did not have a steady place to sleep or slept in a halfway (including now)? No 09/16/2022 Food Insecurity Answer Date Recorded Within the past 12 months, y ou worried that your food would run out before you got the money to buy more. 1 09/16/2022 Within the past 12 months, t he food you bought just didn't last and you didn't have money to get more. 1 09/16/2022 Comments No Sex and Gender Information Value [...] PM EDT Office Visit Magnus Shay MD [address] [place] [address] [place] [address] Magnus Shay MD [address] [facility] [place], [place] [address] 2 month gc 12/19/2024 2:15 PM EDT Office Visit [facility] OBSTETRICS & GYNECOLOGY Part of [address] [place] [address] Destinee Coughlin, WM - [address] [place] [address] yearly-last PAP 12/15/2022-Medicare 02/06/2025 2:00 PM EDT Office Visit [facility] UROLOGY Part of [facility] [address] [facility] [place] [phone] Sandra Alvares, OVERHAULER HELPER - TROLLEY WIRE INSTALLER [address] [facility] [address] [place] [phone] 3M interstim check. remind patient to charge 04/11/2025 9:50 AM EST Office Visit Magnus Shay MD [address] [place] [address] Magnus Shay MD [address] [facility] [place] [address] maw documented as of this encounter Procedures Procedure Name Priority Date/Time Associated Diagnosis Comments DIABETES EYE EXAM Routine 03/11/2023 documented in this encounter Results * DIABETES EYE EXAM (03/11/2023) Diabetic Retinopathy Negative 03/11/2023 us Historical Provider [facility] Result - Final documented in this encounter Visit Diagnoses Not on filedocumented in this encounter Additional Health Concerns Assessment Noted Time A fall risk assessment has been complete d for the patient 09/16/2022 1:35 PM EDT A Body Mass Index follow-up plan has been documented for the patient 11/18/2021 4:24 PM EDT documented as of this encounter Care Teams Embedded Processor Relationship Specialty Start Date End Date Magnus Shay MD [address] [place] [address] [place] [address] PCP - General Internal Medicine 07/20/14 documented as of this encounter
--- OUTSIDE RECORDS SUMMARY | 2024-11-21 16:01 | XMS_ITS | Encounter Summary ---
Author Organization [facility] Address [address] [place] [address] Care Team Providers Care Copy Manager Name Role Phone Andrae Patino MD Unavailable Magnus Shay MD Primary Care Provider [phone] Reason for Visit * Reason Onset Date Comments Medication Follow-up 02/04/2023 Encounter Details Date Type Department Care Team (Late st Contact Info) Description 02/04/2023 Telephone Gastroenterology and Hepatology [facility] [address] [phone] Pamela Mckeon Medication Follow-up Social History Tobacco Use Types Packs/Day Years [...] encounter Miscellaneous Notes * Telephone Encounter - Enedina Chiu RN - 02/04/2023 11:41 AM EDT Routing to provider for review and advice * Telephone Encounter - Pamela Mckeon - 02/04/2023 10:31 AM EDT GHN TRIAGE (NON-SYMPTOM) MESSAGE Provider: Dr Cordova Subject of call: Sonja called from [facility] (with [facility]) Reason for call: Pt was prescribed Duloxetine 30mg at bedtime, but pharmacist recommends pt 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 Is this medication safe for this pt or is there an alternative medication that pt could take instead? Preferred call back time: Any, Sonja PH# [phone] press 0 Will warm connect patient to nursing line [...] on filedocumented in this encounter Care Teams Copy Manager Relationship Specialty Start Date End Date Magnus Shay MD [address] [place] [address] [place] [address] PCP - General Internal Medicine 11/23/22 Andrae Patino MD [address] [place] [address] Gastroenterology 11/23/22 documented as of this encounter
--- OUTSIDE RECORDS SUMMARY | 2024-11-21 16:01 | XMS_ITS | Encounter Summary ---
Author Organization [facility] Address [address] [place] [address] Care Team Providers Care Ward Maid Name Role Phone Magnus Shay MD Primary Care Provider [phone] Reason for Visit * Reason Onset Date Comments Results 11/13/2024 Encounter Details Date Type Department Care Team (Late st Contact Info) Description 11/13/[address] [facility] UROLOGY Part of [address] [place] [address] Sandra Alvares, QUILL REAMER - REGISTRAR NURSES' REGISTRY [address] [place] [address] Results Social History Tobacco Use Types Packs/Day Years Used Date Smoking Tobacco: Former Cigarettes 0.3 8 1 967 - 1974 Smokeless Tobacco: Never Comments:smoked socially on occassion until 1999 Alcohol Use Standard Drinks/Week Comments Not Currently 0 (1 standard drink = 0.6 oz pur e alcohol) social [facility] Utilities Answer Date Recorded In the past 12 months has e electric, gas, oil, or water company [...] week 03/27/2024 How often do you attend chur or judaism services? 1 to 4 times per year 03/27/2024 Do you belong to any clubs o r organizations such as oriental orthodox groups, unions, fraternal or athletic groups, or [...] Date Recorded PHQ-9 Total Score 2 10/11/2024 [facility]at ional [facility] - Occupational Stress [...] No 09/28/2024 Housing Stability Vital Sign Answer Ariel e Recorded Unable to Pay for Housing in the Last Year Not o n file 10/01/2023 Number of Places Lived in the Last Year Not on f ile 10/01/2023 In the last 12 months, was t here a time when you did not have a steady place to sleep or slept in a mcc (including now)? No 10/01/2023 Housing Stability Vital Sign Answer Ariel e Recorded In the last 12 months, was t here a time when you were not able to pay the mortgage or rent on time? No 09/28/2024 In the past 12 months, how m any times have you moved where you were living? 0 09/28/2024 At any time in the past 12 m [facility], were you homeless or living in a mcc (including now)? No 09/28/2024 Food Insecurity Answer [...] PM EDT Office Visit Magnus Shay MD [address] [place] [address] [place] [phone] Magnus Shay MD [address] [place] [address] [place] [address] 2 month gc 12/19/2024 2:15 PM EDT Office Visit [facility] OBSTETRICS & GYNECOLOGY [address] [place] [phone] Destinee Coughlin, QUILL REAMER - CNM [address] [place] [address] [address] [place] [address] yearly-last PAP 12/15/2022-Medicare 02/06/2025 2:00 PM EDT Office Visit [facility] UROLOGY Part [address] [place] [phone] Sandra Alvares, QUILL REAMER - REGISTRAR NURSES' REGISTRY [address] [place] [address] [address] [place] [address] 3M interstim check. remind patient to charge 04/11/2025 9:50 AM EST Office Visit Magnus Shay MD [address] [place] [address] [place] [phone] Magnus Shay MD [address] [place] [address], [facility] [place] [address] maw documented as of this encounter Visit Diagnoses Not on filedocumented in this encounter Additional Health Concerns Assessment Noted Time A fall risk assessment has been complete d for the patient 10/11/2024 1:55 PM EDT A Body Mass Index follow-up plan has been documented for the patient 11/18/2021 4:24 PM EDT documented as of this encounter Care Teams Ward Maid Relationship Specialty Start Date End Date Magnus Shay MD [address] [place] [address] [place] [phone] PCP - General Internal Medicine 07/20/14 documented as of this encounter
--- OUTSIDE RECORDS SUMMARY | 2024-11-21 16:01 | XMS_ITS | Encounter Summary ---
Author Organization [facility] Address [address] [place] [address] Care Team Providers Care Mainspring Winder Name Role Phone Magnus Shay MD Primary Care Provider [phone] Encounter Details Date Type Department Care Team (Late st Contact Info) Description 11/13/2024 Orders Only [facility] UROLOGY Part of [address] [place] [address] Provider, MD Eduarda Social History Tobacco Use Types Packs/Day Years Used Date Smoking Tobacco: Former Cigarettes 0.3 8 1 967 - 1974 Smokeless Tobacco: Never Comments:smoked socially on occassion until 1999 Alcohol Use Standard Drinks/Week Comments Not Currently 0 (1 standard drink = 0.6 oz pur e alcohol) social [facility] Utilities Answer Date Recorded In the past 12 months has e [employer], gas, oil, or water [employer] threatened to shut off services in your [...] How often do you attend chur or advent services? 1 to 4 times per year 03/27/2024 Do you belong to any clubs o r organizations such as holiness groups, unions, fraternal or athletic groups, or [...] Date Recorded PHQ-9 Total Score 2 10/11/2024 [facility] of Occupat ional Health - Occupational Stress [...] place to sleep or slept in a detention (including now)? No 10/01/2023 Housing Stability Vital Sign Answer Ariel e Recorded In the last 12 months, was t here a time when you were not able to pay the mortgage or rent on time? No 09/28/2024 In the past 12 months, how m any times have you moved where you were living? 0 09/28/2024 At any time in the past 12 m [facility], were you homeless or living in a detention (including now)? No 09/28/2024 Food Insecurity Answer [...] PM EDT Office Visit Magnus Shay MD [address] [place] [address] [place] [phone] Magnus Shay MD [address] [place] [address] [place] [address] 2 month gc 12/19/2024 2:15 PM EDT Office Visit [facility] OBSTETRICS & GYNECOLOGY [address] [place] [address] Destinee Coughlin, FORESTER SILVICULTURE - CNM [address] [place] [address] [address] [place] [address] yearly-last PAP 12/15/2022-Medicare 02/06/2025 2:00 PM EDT Office Visit [facility] UROLOGY Part [address] [place] [phone] Sandra Alvares, FORESTER SILVICULTURE - PERSONAL INVESTMENT ADVISER [address] [place] [address] [address] [place] [phone] 3M interstim check. remind patient to charge 04/11/2025 9:50 AM EST Office Visit Magnus Shay MD [address] [place] [address] [place] [phone] Magnus Shay MD [address] [place] [address] [place] [address] maw documented as of this encounter Procedures Procedure Name Priority Date/Time Associated Diagnosis Comments URINE PCR MULTIPLEX Routine 11/11/2024 8:36 AM EDT documented in this encounter Results * Urine PCR Multiplex (11/11/2024 8:36 AM EDT) Urine (Urine) us Historical Provider MICROBIOLOGY - GENERAL OR DERABLES Final Result documented in this encounter Visit Diagnoses Not on filedocumented in this encounter Additional Health Concerns Assessment Noted Time A fall risk assessment has been complete d for the patient 10/11/2024 1:55 PM EDT A Body Mass Index follow-up plan has been documented for the patient 11/18/2021 4:24 PM EDT documented as of this encounter Care Teams Mainspring Winder Relationship Specialty Start Date End Date Magnus Shay MD [address] [place], [place] [phone] PCP - General Internal Medicine 07/20/14 documented as of this encounter
--- OUTSIDE RECORDS SUMMARY | 2024-11-21 16:01 | XMS_ITS | Clinical Summary ---
Author Organization [facility] Address [address] [place] [address] [place] [address] Care Team Providers Care Trouble Locator Test Desk Name Role Phone Andrae Patino MD Unavailable Magnus Shay MD Primary Care Provider [phone] Allergies Active Allergy Reactions Criticality Noted Date Comments Morphine Rash 05/22/2020 Nickel Rash 05/22/2020 Penicillins Swelling 05/22/2020 Sulfites Itching,Sneezing 05/22/2020 Medications Synthroid 100 MCG tablet Take 1 tablet by mouth daily. 04/30/2020 Active atorvastatin 20 MG tablet Take 1 tablet by mouth daily every morning. 04/30/2020 Active metFORMIN 500 MG tablet Take 1 tablet by mouth 2 times daily. 05/07/2020 Active ursodiol 300 MG capsule Take 1 capsule by mouth 4 times daily. Takes 2 capsules in the am and 2 capsules in the pm 04/12/2020 Active cyclosporin 0.05 % Emulsion ophthalmic suspension 1 drop 2 times daily. Active Vit-Fe Fumarate-FA ( VITAMIN PO) Take 1 tablet by mouth daily. Active Cholecalciferol (VITAMIN D3 PO) Take 1 tablet by mouth daily. Active Coenzyme Q10 (CO Q 10 PO) Take 1 tablet by mouth daily. Active Triamcinolone Acetonide (NASACORT AQ NA) by Nasal route. Active omega-3 acid ethyl esters 1 g capsule Take 2 capsules by mouth daily. Active cetirizine 10 MG tablet Take 1 tablet by mouth daily. Active olopatadine (Pataday) 0.1 % Solution ophthalmic solution 1 drop 2 times daily as needed for Allergies. Active meloxicam (Mobic) 15 MG tablet Take 0.5 tablets by mouth daily. Active Valsartan 160 MG tablet Take 2 tablets by mouth daily. Active hydroCHLOROthia zide 12.5 MG capsule Take 1 capsule by mouth daily. Active carveDILOL 25 MG tablet Take 1 tablet by mouth 2 times daily with meals. Active traZODone 50 MG tablet Take 0.5 tablets by mouth At bedtime. Active Active Problems Problem Noted Date Diagnosed Date Obesity (BMI 30.0-34.9) 05/22/2020 Encounters Date Type Department Care Team Description 09/20/2024 11:45 AM EDT - 09/20/2024 1:15 PM EDT Surgery [facility] [address] [place] [phone] Harshad Whipple II, MD Venography Hepatic W/ S&I Transjugular Liver Bx w/ Pressures 09/20/2024 10:19 AM EDT - 09/20/2024 2:56 PM EDT Hospital Encounter [facility] [address] [place] [phone] Harshad Whipple II, MD Liver fibrosis Discharge Disposition: Home or Self Care 09/12/2024 Telephone [facility] [address] [place] [phone] Heather Tolbert, [facility] Appointment from Last 3 Months Family History Medical History Relation Name Comments Alzheimer's Father Heart Disease - Other Father Myocardial Infarction Maternal Grandfather Alzheimer's Mother Diabetes Mother Hypertension Mother Thyroid Disease Sister Relation Name Status Comments Father Maternal Grandfather Maternal Grandmother Mother Paternal Grandfather Sister Alive Social History Tobacco Use Types Packs/Day Years [...] Orientation Straight 11/11/2023 9: 47 PM EDT Last Filed Vital Signs Vital Sign Reading Time Taken Comments Blood Pressure 142/64 09/20/2024 2:30 PM EDT Pulse 82 09/20/2024 2:30 PM EDT Temperature 36.9 C (98.4 F) 11/29/2023 1:17 PM EDT Respiratory Rate 16 09/20/2024 1:00 PM EDT Oxygen Saturation 97% 09/20/2024 2:30 PM EDT Inhaled Oxygen Concentration - - Weight 62.6 kg (138 lb) 11/29/2023 1:17 PM EDT Height 154.9 cm (5' 1 ) 11/29/2023 1:17 PM EDT Body Mass Index 26.07 11/29/2023 1:17 PM EDT Plan of Treatment Health Maintenance Due Date Last Done Comments DEXA SCAN DISCUSSION 1949 HEPATITIS C VIRUS SCREENING 1949 TETANUS 1949 TSH 1949 TDAP (ADULT) 1968 CERVICAL CANCER SCREENING DISCUSSION 1970 LIPID SCREENING 1989 HEP B VACCINE (1 of 3 - Risk 3-dose series) 2009 ZOSTER (SHINGLES) VACCINE (2 of 3) 11/29/20132013, 02/26/2012 COLORECTAL CANCER SCREENING DISCUSSION 08/13/2021 08/13/2020 MAMMOGRAM SCREENING DISCUSSION 12/26/2022 0 12/26/2021, 12/26/2020, 12/07/2017 COVID-19 VACCINE (2023-2 5 season) 2024 02/25/2024, 08/13/2023, 09/27/2022, Additional history exists POTASSIUM 11/28/2024 11/29/2023, 0707/2022, 05/22/2020 PNEUMOCOCCAL VACCINE SERIES Completed 12/2017, 03/04/2016, 05/01/2015, Additional history exists RSV VACCINE Completed 02/23/2023 INFLUENZA VACCINE Completed 02/11/2024, , 02/01/2022, Additional history exists Procedures Procedure Name Priority Date/Time Associated Diagnosis Comments BX TRANSCATHETER W/ S&I Routine 09/20/2024 12:19 PM EDT Liver fibrosis BX TRANSCATHETER Routine 09/20/2024 12:1 9 PM EDT Liver fibrosis VENOGRAPHY HEPATIC W/ S&I Routine 09/20/2024 12:19 PM EDT Liver fibrosis GENERAL PROCEDURE Routine 09/20/2024 12: 12 PM EDT SURG PATH REQUEST Routine 09/20/2024 12: 08 PM EDT GLUCOSE POC Routine 09/20/2024 10:57 AM EDT SEDATION/PROCEDURES MONITORING FLOWSHEET 09/20/2024 OUTSIDE PROCEDURES 08/25/2024 LABS (OUTSIDE) Routine 08/23/2024 12:22 PM EDT LABS (OUTSIDE) 08/23/2024 CHEM 6 (LYTES, BUN CREA) Routine 11/29/2023 2:44 PM EDT Primary biliary cholangitis Abnormal LFTs Splenomegaly OUTSIDE COLONOSCOPY 08/13/2020 from Last 3 Months or Most Recently Relevant to Health Maintenance Results * BX TRANSCATHETER, BX TRANSCATHETER W/ S&I (09/20/2024 12:19 PM EDT) Anatomical Region Laterality Modality X-Ray Angiograph y 09/20/2024 12:4 8 PM EDT Impressions 09/21/2024 3:20 PM EDT IMPRESSION: Transjugular liver biopsy performed with samples sent to pathology. Pressure measurements as above. Harshad Whipple II, MD was in the room and participated during all morales portions of this procedure. I personally viewed and interpreted these images and I have reviewed and approved this report. Narrative 09/21/2024 3:20 PM EDT EXAM: IR HEPATIC WEDGE PRESSURE/VENO, IR TRANSCATHETER BIOPSY, 09/20/2024 12:17 PM CLINICAL INDICATIONS: 73-year-old woman with history of liver fibrosis and primary biliary cholangitis presenting for transjugular liver biopsy with manometry. MEDICATIONS: 11:34 AM 09/20/24 fentaNYL (SUBLIMAZE) injection 0-300 mcg Ordered and Given 50 mcg Given Rate: 0 Route: Intravenous; 11:34 AM 09/20/24 midazolam (VERSED) injection 0-10 mg Ordered and Given 1 mg Given Rate: 0 Route: Intravenous; 11:41 AM 09/20/24 fentaNYL (SUBLIMAZE) injection 0-300 mcg Given 50 mcg Given Rate: 0 Route: Intravenous; 11:41 AM 09/20/24 midazolam (VERSED) injection 0-10 mg Given 1 mg Given Rate: 0 Route: Intravenous; 11:50 AM 09/20/24 Lidocaine 2 % injection Ordered and Given 2 mL Given Rate: 0 Route: Other; 11:51 AM 09/20/24 fentaNYL (SUBLIMAZE) injection 0-300 mcg Given 25 mcg Given Rate: 0 Route: Intravenous; 11:51 AM 09/20/24 midazolam (VERSED) injection 0-10 mg Given 0.5 mg Given Rate: 0 Route: Intravenous; 12:03 PM 09/20/24 fentaNYL (SUBLIMAZE) injection 0-300 mcg Given 25 mcg Given Rate: 0 Route: Intravenous; 12:03 PM 09/20/24 midazolam (VERSED) injection 0-10 mg Given 0.5 mg Given Rate: 0 Route: Intravenous; 12:07 PM 09/20/24 Iohexol (OMNIPAQUE) 300 MG/ML vial Ordered and Given 20 mL Given Rate: 0 Route: Intravenous; 12:07 PM 09/20/24 fentaNYL (SUBLIMAZE) injection 0-300 mcg Given 50 mcg Given Rate: 0 Route: Intravenous; 12:07 PM 09/20/24 midazolam (VERSED) injection 0-10 mg Given 1 mg Given Rate: 0 Route: Intravenous; TOTAL FLUORO TIME: 4.3 minutes OPERATORS: Harshad Whipple II, MD (attending), Jorge Serrano MD (resident) CONSENT: Following discussion of the risks, benefits and alternatives of the procedure, written informed consent was obtained. SEDATION: I performed Moderate Sedation which included the presence of a nurse that assisted in monitoring the patient's level of consciousness and physiologic status. After administration of sedative medication(s), I spent 33 minutes of continuous [id number] time with the patient. COMPARISON: No prior studies available for comparison. TIME OUT: Prior to the procedure a time out was performed in the presence of the patient and all personnel involved in this case. The patient identity, procedure type, procedure side/site, and allergies were verified. TECHNIQUE: Position: The patient was transferred to the IR laboratory and was positioned supine on the procedural table. The right side of the neck was prepped and draped using maximum sterile barrier technique. This consisted of cap, mask, hand hygiene, sterile gown and gloves, 2% Chlorhexidine solution or acceptable alternatives for cutaneous antisepsis and occlusive sterile draping of the field. Procedure: Access was gained via the right internal jugular vein using direct ultrasound guidance and an image was saved in the imaging archive system for documentation. A wire was advanced into the IVC. A 10-Spanish by 40 cm hemostatic sheath was placed. An endhole catheter was advanced into the right hepatic vein. A right hepatic venogram was obtained. The catheter was then positioned into a wedged position and wedged hepatic pressure measurement was obtained. It was then pulled back into the free position and free hepatic venous pressure was obtained. This process was repeated until a total of 2 sets of pressure measurements were obtained. The right atrial pressure was measured via the sheath. An Amplatz wire was placed through the catheter. The sheath was positioned into the right hepatic vein. A biopsy device was advanced through the sheath into the right hepatic vein. A total of 4 passes were made in the right hepatic vein and tissue samples were obtained and submitted in formalin. FINDINGS: The right hepatic vein has a normal appearance. 1st pressures Right Atrium Pressure: 6 Wedge Pressure: 16 Free Hepatic Pressure: 10 2nd pressures Right Atrium Pressure: 5 Wedge Pressure: 13 Free Hepatic Pressure: 8 Procedure Note Harshad Whipple II, MD - 09/21/2024 EXAM: IR HEPATIC WEDGE PRESSURE/VENO, IR TRANSCATHETER BIOPSY,09/20/2024 12:17 PM CLINICAL INDICATIONS: 73-year-old woman with history of liver fibrosisand primary biliary cholangitis presenting for transjugular liver biopsywith manometry. MEDICATIONS: 11:34 AM 09/20/24 fentaNYL (SUBLIMAZE) injection 0-300 mcg Ordered and Given 50 mcg Given Rate: 0 Route: Intravenous; 11:34 AM09/20/24 midazolam (VERSED) injection 0-10 mg Ordered and Given 1 mg Given Rate:0 Route: Intravenous; 11:41 AM 09/20/24 fentaNYL (SUBLIMAZE) injection 0-300mcg Given 50 mcg Given Rate: 0 Route: Intravenous; 11: AM 09/20/24midazolam (VERSED) injection 0-10 mg Given 1 mg Given Rate: 0 Route:Intravenous; 11:50 AM 09/20/24 Lidocaine 2 % injection Ordered and Given 2 mL GivenRate: 0 Route: Other; 11:51 AM 09/20/24 fentaNYL (SUBLIMAZE) injection 0-300 mcgGiven 25 mcg Given Rate: 0 Route: Intravenous; 11:51 AM 09/20/24 midazolam(VERSED) injection 0-10 mg Given 0.5 mg Given Rate: 0 Route: Intravenous; 12:03PM 09/20/24 fentaNYL (SUBLIMAZE) injection 0-300 mcg Given 25 mcg Given Rate:0 Route: Intravenous; 12:03 PM 09/20/24 midazolam (VERSED) injection 0-10mg Given 0.5 mg Given Rate: 0 Route: Intravenous; 12:07 PM 09/20/24Iohexol (OMNIPAQUE) 300 MG/ML vial Ordered and Given 20 mL Given Rate: 0 Route: Intravenous; 12:07 PM 09/20/24 fentaNYL (SUBLIMAZE) injection 0-300 mcgGiven 50 mcg Given Rate: 0 Route: Intravenous; 12:07 PM 09/20/24 midazolam(VERSED) injection 0-10 mg Given 1 mg Given Rate: 0 Route: Intravenous; TOTAL FLUORO TIME: 4.3 minutes OPERATORS: Harshad Whipple II, MD (attending), Jorge Serrano MD(resident) CONSENT: Following discussion of the risks, benefits and alternatives ofthe procedure, written informed consent was obtained. SEDATION: I performed Moderate Sedation which included the presence of anurse that assisted in monitoring the patient's level of consciousness and physiologic status. After administration of sedative medication(s), Ispent 33 minutes of continuous [id number] time with the patient. COMPARISON: No prior studies available for comparison. TIME OUT: Prior to the procedure a time out was performed in the presenceof the patient and all personnel involved in this case. The patientidentity, procedure type, procedure side/site, and allergies were verified. TECHNIQUE: Position: The patient was transferred to the IR laboratory and waspositioned supine on the procedural table. The right side of the neck was preppedand draped using maximum sterile barrier technique. This consisted of cap,mask, hand hygiene, sterile gown and gloves, 2% Chlorhexidine solution oracceptable alternatives for cutaneous antisepsis and occlusive sterile draping ofthe field. Procedure: Access was gained via the right internal jugular vein usingdirect ultrasound guidance and an image was saved in the imaging archive systemfor documentation. A wire was advanced into the IVC. A 10-Spanish by 40 cm hemostatic sheath was placed. An endhole catheter was advanced into theright hepatic vein. A right hepatic venogram was obtained. The catheter wasthen positioned into a wedged position and wedged hepatic pressure measurementwas obtained. It was then pulled back into the free position and freehepatic venous pressure was obtained. This process was repeated until a total of2 sets of pressure measurements were obtained. The right atrial pressurewas measured via the sheath. An Amplatz wire was placed through the catheter. The sheath waspositioned into the right hepatic vein. A biopsy device was advanced through thesheath into the right hepatic vein. A total of 4 passes were made in the right hepatic vein and tissue samples were obtained and submitted in formalin. FINDINGS: The right hepatic vein has a normal appearance. 1st pressures Right Atrium Pressure: 6 Wedge Pressure: 16 Free Hepatic Pressure: 10 2nd pressures Right Atrium Pressure: 5 Wedge Pressure: 13 Free Hepatic Pressure: 8 IMPRESSION IMPRESSION: Transjugular liver biopsy performed with samples sent to pathology. Pressure measurements as above. Harshad Whipple II, MD was in the room and participated during all morales portions of this procedure. I personally viewed and interpreted these images and I have reviewed and approved this report. Harshad Whipple II, MD VIR ORDERABLES Final R esult * VENOGRAPHY HEPATIC W/ S&I (09/20/2024 12:19 PM EDT) Anatomical Region Laterality Modality X-Ray Angiograph y 09/20/2024 12:4 8 PM EDT Impressions 09/21/2024 3:20 PM EDT IMPRESSION: Transjugular liver biopsy performed with samples sent to pathology. Pressure measurements as above. Harshad Whipple II, MD was in the room and participated during all morales portions of this procedure. I personally viewed and interpreted these images and I have reviewed and approved this report. Narrative 09/21/2024 3:20 PM EDT EXAM: IR HEPATIC WEDGE PRESSURE/VENO, IR TRANSCATHETER BIOPSY, 09/20/2024 12:17 PM CLINICAL INDICATIONS: 73-year-old woman with history of liver fibrosis and primary biliary cholangitis presenting for transjugular liver biopsy with manometry. MEDICATIONS: 11:34 AM 09/20/24 fentaNYL (SUBLIMAZE) injection 0-300 mcg Ordered and Given 50 mcg Given Rate: 0 Route: Intravenous; 11:34 AM 09/20/24 midazolam (VERSED) injection 0-10 mg Ordered and Given 1 mg Given Rate: 0 Route: Intravenous; 11:41 AM 09/20/24 fentaNYL (SUBLIMAZE) injection 0-300 mcg Given 50 mcg Given Rate: 0 Route: Intravenous; 11:41 AM 09/20/24 midazolam (VERSED) injection 0-10 mg Given 1 mg Given Rate: 0 Route: Intravenous; 11:50 AM 09/20/24 Lidocaine 2 % injection Ordered and Given 2 mL Given Rate: 0 Route: Other; 11:51 AM 09/20/24 fentaNYL (SUBLIMAZE) injection 0-300 mcg Given 25 mcg Given Rate: 0 Route: Intravenous; 11:51 AM 09/20/24 midazolam (VERSED) injection 0-10 mg Given 0.5 mg Given Rate: 0 Route: Intravenous; 12:03 PM 09/20/24 fentaNYL (SUBLIMAZE) injection 0-300 mcg Given 25 mcg Given Rate: 0 Route: Intravenous; 12:03 PM 09/20/24 midazolam (VERSED) injection 0-10 mg Given 0.5 mg Given Rate: 0 Route: Intravenous; 12:07 PM 09/20/24 Iohexol (OMNIPAQUE) 300 MG/ML vial Ordered and Given 20 mL Given Rate: 0 Route: Intravenous; 12:07 PM 09/20/24 fentaNYL (SUBLIMAZE) injection 0-300 mcg Given 50 mcg Given Rate: 0 Route: Intravenous; 12:07 PM 09/20/24 midazolam (VERSED) injection 0-10 mg Given 1 mg Given Rate: 0 Route: Intravenous; TOTAL FLUORO TIME: 4.3 minutes OPERATORS: Harshad Wihpple II, MD (attending), Jorge Serrano MD (resident) CONSENT: Following discussion of the risks, benefits and alternatives of the procedure, written informed consent was obtained. SEDATION: I performed Moderate Sedation which included the presence of a nurse that assisted in monitoring the patient's level of consciousness and physiologic status. After administration of sedative medication(s), I spent 33 minutes of continuous [id number] time with the patient. COMPARISON: No prior studies available for comparison. TIME OUT: Prior to the procedure a time out was performed in the presence of the patient and all personnel involved in this case. The patient identity, procedure type, procedure side/site, and allergies were verified. TECHNIQUE: Position: The patient was transferred to the IR laboratory and was positioned supine on the procedural table. The right side of the neck was prepped and draped using maximum sterile barrier technique. This consisted of cap, mask, hand hygiene, sterile gown and gloves, 2% Chlorhexidine solution or acceptable alternatives for cutaneous antisepsis and occlusive sterile draping of the field. Procedure: Access was gained via the right internal jugular vein using direct ultrasound guidance and an image was saved in the imaging archive system for documentation. A wire was advanced into the IVC. A 10-Spanish by 40 cm hemostatic sheath was placed. An endhole catheter was advanced into the right hepatic vein. A right hepatic venogram was obtained. The catheter was then positioned into a wedged position and wedged hepatic pressure measurement was obtained. It was then pulled back into the free position and free hepatic venous pressure was obtained. This process was repeated until a total of 2 sets of pressure measurements were obtained. The right atrial pressure was measured via the sheath. An Amplatz wire was placed through the catheter. The sheath was positioned into the right hepatic vein. A biopsy device was advanced through the sheath into the right hepatic vein. A total of 4 passes were made in the right hepatic vein and tissue samples were obtained and submitted in formalin. FINDINGS: The right hepatic vein has a normal appearance. 1st pressures Right Atrium Pressure: 6 Wedge Pressure: 16 Free Hepatic Pressure: 10 2nd pressures Right Atrium Pressure: 5 Wedge Pressure: 13 Free Hepatic Pressure: 8 Procedure Note Harshad Whipple II, MD - 09/21/2024 EXAM: IR HEPATIC WEDGE PRESSURE/VENO, IR TRANSCATHETER BIOPSY,09/20/2024 12:17 PM CLINICAL INDICATIONS: 73-year-old woman with history of liver fibrosisand primary biliary cholangitis presenting for transjugular liver biopsywith manometry. MEDICATIONS: 11:34 AM 09/20/24 fentaNYL (SUBLIMAZE) injection 0-300 mcg Ordered and Given 50 mcg Given Rate: 0 Route: Intravenous; 11:34 AM09/20/24 midazolam (VERSED) injection 0-10 mg Ordered and Given 1 mg Given Rate:0 Route: Intravenous; 11:41 AM 09/20/24 fentaNYL (SUBLIMAZE) injection 0-300mcg Given 50 mcg Given Rate: 0 Route: Intravenous; 11: AM 09/20/24midazolam (VERSED) injection 0-10 mg Given 1 mg Given Rate: 0 Route:Intravenous; 11: AM 09/20/24 Lidocaine 2 % injection Ordered and Given 2 mL GivenRate: 0 Route: Other; 11: AM 09/20/24 fentaNYL (SUBLIMAZE) injection 0-300 mcgGiven 25 mcg Given Rate: 0 Route: Intravenous; 11: AM 09/20/24 midazolam(VERSED) injection 0-10 mg Given 0.5 mg Given Rate: 0 Route: Intravenous; 12:03PM 09/20/24 fentaNYL (SUBLIMAZE) injection 0-300 mcg Given 25 mcg Given Rate:0 Route: Intravenous; 12:03 PM 09/20/24 midazolam (VERSED) injection 0-10mg Given 0.5 mg Given Rate: 0 Route: Intravenous; 12:07 PM 09/20/24Iohexol (OMNIPAQUE) 300 MG/ML vial Ordered and Given 20 mL Given Rate: 0 Route: Intravenous; 12:07 PM 09/20/24 fentaNYL (SUBLIMAZE) injection 0-300 mcgGiven 50 mcg Given Rate: 0 Route: Intravenous; 12:07 PM 09/20/24 midazolam(VERSED) injection 0-10 mg Given 1 mg Given Rate: 0 Route: Intravenous; TOTAL FLUORO TIME: 4.3 minutes OPERATORS: Harshad Whipple II, MD (attending), Jorge Serrano MD(resident) CONSENT: Following discussion of the risks, benefits and alternatives ofthe procedure, written informed consent was obtained. SEDATION: I performed Moderate Sedation which included the presence of anurse that assisted in monitoring the patient's level of consciousness and physiologic status. After administration of sedative medication(s), Ispent 33 minutes of continuous bmrk-we-scki time with the patient. COMPARISON: No prior studies available for comparison. TIME OUT: Prior to the procedure a time out was performed in the presenceof the patient and all personnel involved in this case. The patientidentity, procedure type, procedure side/site, and allergies were verified. TECHNIQUE: Position: The patient was transferred to the IR laboratory and waspositioned supine on the procedural table. The right side of the neck was preppedand draped using maximum sterile barrier technique. This consisted of cap,mask, hand hygiene, sterile gown and gloves, 2% Chlorhexidine solution oracceptable alternatives for cutaneous antisepsis and occlusive sterile draping ofthe field. Procedure: Access was gained via the right internal jugular vein usingdirect ultrasound guidance and an image was saved in the imaging archive systemfor documentation. A wire was advanced into the IVC. A 10-Spanish by 40 cm hemostatic sheath was placed. An endhole catheter was advanced into theright hepatic vein. A right hepatic venogram was obtained. The catheter wasthen positioned into a wedged position and wedged hepatic pressure measurementwas obtained. It was then pulled back into the free position and freehepatic venous pressure was obtained. This process was repeated until a total of2 sets of pressure measurements were obtained. The right atrial pressurewas measured via the sheath. An Amplatz wire was placed through the catheter. The sheath waspositioned into the right hepatic vein. A biopsy device was advanced through thesheath into the right hepatic vein. A total of 4 passes were made in the right hepatic vein and tissue samples were obtained and submitted in formalin. FINDINGS: The right hepatic vein has a normal appearance. 1st pressures Right Atrium Pressure: 6 Wedge Pressure: 16 Free Hepatic Pressure: 10 2nd pressures Right Atrium Pressure: 5 Wedge Pressure: 13 Free Hepatic Pressure: 8 IMPRESSION IMPRESSION: Transjugular liver biopsy performed with samples sent to pathology. Pressure measurements as above. Harshad Whipple II, MD was in the room and participated during all morales portions of this procedure. I personally viewed and interpreted these images and I have reviewed and approved this report. us Harshad Whipple II, MD VIR ORDERABLES Final R esult * GENERAL PROCEDURE (09/20/2024 12:12 PM EDT) Anatomical Region Laterality Modality Other Narrative Procedure Note Jorge Serrano MD - 09/20/2024 12:12 PM EDT PROCEDURE NOTE PROCEDURE PERFORMED BY: Attending Dr. Harshad Whipple, Dr. Jorge Serrano(fellow) PROCEDURE DATE: 09/20/24 12:13 PM PRE PROCEDURE DIAGNOSIS: hepatic fibrosis POST PROCEDURE DIAGNOSIS: hepatic fibrosis PROCEDURE: Transjugular liver biopsy with pressures. Please refer to the imaging tab for the full dictation final report. CONSENT: Informed consent was obtained prior to the procedure after discussion ofthe risks, benefits, and alternatives and expected outcomes were discussedwith the patient; consent placed in chart. UNIVERSAL PROTOCOL: Preprocedure verification is complete- patientverified and consents confirmed. ANESTHESIA: Moderate sedation and local anesthetic ESTIMATED BLOOD LOSS: Minimal CONDITION: Stable. Patient tolerated procedure well. COMPLICATIONS: None. SPECIMEN: 4 passe sliver parenchyma 1st pressures Right Atrium Pressure: 6 Wedge Pressure: 16 Free Hepatic Pressure: 10 2nd pressures Right Atrium Pressure: 5 Wedge Pressure: 13 Free Hepatic Pressure: 8 IMPRESSION/PLAN: Successful transjugular liver biopsy with hepatic pressures. Biopsy samples sent to laboratory. Gradient pressures as above. Thank you for allowing Interventional Radiology to participate in thispatient's care. Jorge Serrano MD Integrated Interventional Seed Trucker PGY-6 us Jorge Serrano MD BEDSIDE PROCEDURES Edited Res ult - Final * SURG PATH REQUEST (09/20/2024 12:08 PM EDT) Case Report Surgical Pathology Report Case: [id number] Authorizing Provider: ERNIE Duek Collected: 09/20/2024 12:08 PM Ordering Location: [facility] Received: 09/20/2024 12:24 PM Hospital Pathologist: Jj Crowell MD Specimen: Liver Non-Tumor (medical) 5 6:35 PM EDT [facility] Clinical History 73 year old female with history of PBC, indeterminate hepatic fibrosis. 5 6:35 PM EDT [facility] Pathologic Diagnosis A. Liver, transjugular core biopsy: Focal bile duct injury with inflammation, compatible with clinical history of PBC Trichrome stain highlights bridging fibrosis with focal nodular formation, stage 3-4 Iron stain is negative PAS with diastase is negative for intracytoplasmic globules 5 6:35 PM EDT [facility] at 1835 EDT Microscopic Description A microscopic examination was performed. All controls show appropriate reactivity. All immunohistochemistry (IHC), in situ hybridization (LEONARDA), and histochemical tests were developed by and are performed at the [facility], Histology and IHC Lab, [address] [place] [address]. All Immunofluorescent (IF) tests were developed by and are performed at the [facility], Renal Division, [address] [place] [address]. All tests reported here, except for PD-L1, have not been cleared by or approved by the [place] Food and Drug Administration (FDA). The laboratory is regulated under CLIA as qualified to perform high-complexity testing. The tests are used for clinical purposes. They should not be regarded as investigational or for research. 5 6:35 PM EDT [facility] Gross Description The specimen is received in one properly labeled container with the patient's name and accession number. A. The specimen is designated transjugular medical liver core biopsy and consists of five copeland soft tissue cores that range from 0.5 cm up to 1.6 cm in length, with an average diameter of 0.1 cm. TE 2 Lab Use Only: JobID [id number] Grosser for this case was: Judith Flores 5 6:35 PM EDT [facility] Images 5 6:35 PM EDT [facility] For Immediate Release to Patient's [email or web address]? Yes Yes 5 6:35 PM EDT [facility] Professional Interpretation Performed at: [facility] [address] [place] [address] 5 6:35 PM EDT [facility] Tissue (Liver Non-Tumor (medical)) 09/20/2024 12:08 PM EDT 09/20/2024 12:24 PM EDT us Vonda GOODWINBS SURG PATH Final Result Performing Organization Address [facility] Co de Phone Number [facility] [address] [address] * GLUCOSE POC (09/20/2024 10:57 AM EDT) Glucose (POC Device) 133 Nonfasting Glucose: 70-179 mg/dL 09/20/2024 11:00 AM EDT [facility] POC Sample Type VENO 09/20/2024 11:00 AM EDT [facility] Blood 09/20/2024 10:5 7 AM EDT 09/20/2024 11:00 AM EDT Narrative [facility] - 09/20/2024 11:00 AM EDT Test performed at address of the patient encounter. us Harshad Whipple II, MD POINT OF CARE TESTING F inal Result Performing Organization Address [facility] de Phone Number [facility] [address] [address] * SEDATION/PROCEDURES MONITORING FLOWSHEET (09/20/2024) Anatomical Region Laterality Modality Other 09/20/2024 us Other Other OT PROC - OPERATIVE Final Result * OUTSIDE PROCEDURES (08/25/2024) Anatomical Region Laterality Modality Other 08/25/2024 us Other Other OT PROC - OPERATIVE Final Result * LABS (OUTSIDE) (08/23/2024 12:22 PM EDT) Only the most recent of2 resultswithin the time period is included. us Andrae Patino MD LAB SEND OUTS Final Result * (ABNORMAL) CHEM 6 (LYTES, BUN CREA) (11/29/2023 2:44 PM EDT) BUN 35(H) 7 - 25 mg/dL 11/29/2023 5:01 PM EDT [facility] Sodium 141 135 - 145 mmol/L 11/29/2023 5:01 PM EDT [facility] Potassium 4.1 3.5 - 5.0 mmol/L 11/29/2023 5:01 PM EDT [facility] Chloride 107 98 - 108 mmol/L 11/29/2023 5:01 PM EDT [facility] CO2 25 21 - 31 mmol/L 11/29/2023 5:01 PM EDT [facility] Creatinine 0.99 0.50 - 1.20 mg/dL 11/29/2023 5:01 PM EDT [facility] Bun/Crea Ratio 35 11/29/2023 5:01 PM EDT [facility] Anion Gap 13 7 - 17 mmol/L 11/29/2023 5:01 PM EDT [facility] eGFR, CKD-EPI, Female 60 >=60 mL/min/1.7 3m2 11/29/2023 5:01 PM EDT [facility] Comment:Reported eGFR is bas ed on the CKD-EPI 2020 equation using creatinine, age, and sex. Blood Venipuncture / Unknown 11/29/2023 2:44 PM EDT 11/29/2023 2:46 PM EDT us Mono Cordova MD CHEMISTRY ORDERABLES Final Resul t [facility] [address] [address] * COLONOSCOPY (OUTSIDE) (08/13/2020) Anatomical Region Laterality Modality Other 08/13/2020 us Other Other GI/BRONCH PROCEDURE ORDERABLES F inal Result from Last 3 Months or Most Recently Relevant to Health Maintenance Insurance MEDICARE A AND B [facility] Care Teams Trouble Locator Test Desk Relationship Specialty Start Date End Date Magnus Shay MD [address] [place] [address] [place] [address] PCP - General Internal Medicine 11/23/22 Andrae Patino MD [address] [facility] [address] [place] [address] Gastroenterology 11/23/22
--- OUTSIDE RECORDS SUMMARY | 2024-11-21 16:02 | XMS_ITS | Encounter Summary ---
Author Organization [facility] Address [address] [place] [address] Care Team Providers Care Air Carrier Inspector Name Role Phone Magnus Shay MD Primary Care Provider [phone] Encounter Details Date Type Department Care Team (Late Contact Info) Description 11/29/2023 Orders Only [facility] [address] [facility] [address] [place] [id number] Jr. Keith Gabriel, DO [address] [facility] [address] [place] [address] Social History Tobacco Use Types Packs/Day Years Used Date Smoking Tobacco: Former Cigarettes Q uit: 1975 Smokeless Tobacco: Never Alcohol Use Standard Drinks/Week Comments Not Currently 0 (1 standard drink = 0.6 oz pure alcohol) caffeine intake: 1-2 cups per day Comments Unknown Sex and Gender Information Value Date Recorded Sex Assigned at Female 03/08/2023 10:15 AM EDT Legal Sex Female 6:38 PM EDT Gender Identity Female 03/08/2023 10:15 AM EDT Sexual Orientation Not on file documented as of this encounter Plan of Treatment Upcoming Encounters Date Type Department Care Team (Late st Contact Info) Description 12/13/2024 1:15 PM EDT Office Visit [facility] [address] [place] [address] [place] [id number] Jr. Keith Gabriel, DO [address] [facility] [address] [place] [address] documented as of this encounter Procedures Procedure Name Priority Date/Time Associated Diagnosis Comments XR CHEST 1 VIEW FRONTAL Routine 11/29/2023 10:11 AM EDT documented in this encounter Results * XR CHEST 1 VIEW FRONTAL (11/29/2023 10:11 AM EDT) Anatomical Region Laterality Modality Radiographic Ashley ging Jr. Keith Gabriel DO IMG XR PROCEDURES Final Result documented in this encounter Visit Diagnoses Not on filedocumented in this encounter Care Teams Air Carrier Inspector Relationship Specialty Start Date End Date Magnus Shay MD [address] [place] [address] PCP - General 03/08/23 documented as of this encounter
--- OUTSIDE RECORDS SUMMARY | 2024-11-21 16:02 | XMS_ITS | Encounter Summary ---
Author Organization [facility] [employer] [facility] tem Address [id number] [address] [place] [address] Care Team Providers Care Assistant Professor Sculpture Name Role Phone Unavailable Primary Care Provider Unavailabl e Encounter Details Date Type Department Care Team (Late st Contact Info) Description 10/04/2024 Documentation [facility] - GEN 9 ICU [address] [facility] [place] [address] Joel Carroll RN Social History Tobacco Use Types Packs/Day Years Used Date Smoking Tobacco: Former Cigarettes Smokeless Tobacco: Never Alcohol Use Standard Drinks/Week Comments Not Currently 0 (1 standard drink = 0.6 oz pur e alcohol) [facility] Utilities Answer Date Recorded In the past 12 months has e [employer], gas, oil, or water [employer] threatened to shut off services in your home? No 09/30/2024 AUDIT-C Answer Date Recorded Q1: How often do you have a drink containing alcohol? Never 09/30/2024 Q2: How many drinks containi ng alcohol do you have on a typical day when you are drinking? Patient does not drink Q3: How often do you have si x or more drinks on one occasion? Never 09/30/2024 Overall Financial Resource Strain (CARDIA) Answe r Date Recorded How hard is it for you to pa y for the very basics like food, housing, medical care, and heating? Not hard at all 09/30/2024 PHQ-2 Answer Date Recorded Total Score 0 09/30/2024 PRAPARE - Transportation Answer Date Re corded In the past 12 months, has l ack of transportation kept you from medical appointments or from getting medications? No 09/21 In the past 12 months, has l ack of transportation kept you from meetings, work, or from getting things needed for daily living? No 09/30/2024 Housing Instability Answer Date Recorde d Are you worried or concerned that in the next two months you may not have stable housing that you own, rent or stay in as a part of a household? No 09/30/2024 Childcare Answer Date Recorded Childcare Unknown 11/02/2018 Employment Answer Date Recorded Employment Unknown 11/02/2018 Hunger Screening Answer Date Recorded Within the past 12 months we worried whether our food would run out before we got money to buy more. Never True 09/30/2024 Within the past 12 months th e food we bought just didn't last and we didn't have money to get more. Never True 09/30/2024 Comments No Sex and Gender Information Value Date Recorded Sex Assigned at Not on file Legal Sex Female 2:32 PM EST Gender Identity Not on file Sexual Orientation Not on file documented as of this encounter Plan of Treatment Not on file documented as of this encounter Goals Goal Patient Goal Type Associated Problems Recent Progress Patient-Stated? Author Return home General Yes Nadya Pickens, [place] Note: Evaluation of progress towards goal: Plan to return home. documented as of this encounter Visit Diagnoses Not on filedocumented in this encounter Additional Health Concerns Assessment Noted Time PHQ-9 Depression Total Score: 0 10/01/19 25 9:48 AM EDT documented as of this encounter
--- OUTSIDE RECORDS SUMMARY | 2024-11-21 16:02 | XMS_ITS | Encounter Summary ---
Author Organization [facility] Address [address] [place] [address] Care Team Providers Care Online Content Developer Name Role Phone Andrae Patino MD Unavailable Magnus Shay MD Primary Care Provider [phone] Reason for Visit * Reason Onset Date Comments Advice Only 08/14/2024 Encounter Details Date Type Department Care Team (Late st Contact Info) Description 08/14/2024 Telephone [facility] [address] [place] [address] Ihisschedule, Interventional Rad (Ir Dept Use Only) [address] [place] [address] [address] [place] [id number] Advice Only Social History Tobacco Use Types Packs/Day [...] encounter Miscellaneous Notes * Telephone Encounter - Lisa Lee - 08/14/2024 11:54 AM EDT Patient is scheduled for a transjugular liver biopsy on 09/20. She asked she will need to wait for aspecific length of time after the procedure to eat. Please call her at [phone]. documented in this encounter Plan of Treatment Not on file documented as of this encounter Visit Diagnoses Not on filedocumented in this encounter Care Teams Online Content Developer Relationship Specialty Start Date End Date Magnus Shay MD [address] [place] [address] [place] [address] PCP - General Internal Medicine 11/23/22 Andrae Patino MD [address] [place] [address] Gastroenterology 11/23/22 documented as of this encounter
--- OUTSIDE RECORDS SUMMARY | 2024-11-21 16:02 | XMS_ITS | Clinical Summary ---
Author Organization Eugenio [facility] [place] [facility] Address [address] [place] [address] Care Team Providers Care Marine Electronics Technician Name Role Phone Magnus Shay MD Primary Care Provider Allergies Active Allergy Reactions Criticality Noted Date Comments Cyclobenzaprine Hallucinations 04/13/2024 Leucine 06/26/2010 Morphine Rash Low 04/03/2015 Nickel Rash Low 04/03/2015 Penicillins Swelling Medium 04/03/2015 Sulfites Low 04/03/2015 SNEEZING, RUNNY NOSE Medications calcium carbonate 600 MG TABS tablet Take 1 tablet by mouth 3 times daily Active vitamin D (CHOLECALCIFEROL) 1000 UNIT TABS tablet Take 1 tablet by mouth in the morning and 1 tablet in the evening. Active NONFORMULARY Take 1 tablet by mouth daily RESTORE OCULAR Active CycloSPORINE (RESTASIS OP) Apply 1 drop to eye in the morning and 1 drop in the evening. Both Eyes. Active Triamcinolone Acetonide (NASACORT AQ NA) by Nasal route daily One spray in each nostril once a day Active Vit-Fe Fumarate-FA ( VITAMIN PO) Take by mouth daily Active cetirizine (ZYRTEC) 10 MG tablet Take 1 tablet by mouth daily Active Probiotic Product (PROBIOTIC PO) Take 1 tablet by mouth daily Active ursodiol (ACTIGALL) 500 MG tablet Take 1 tablet by mouth 2 times daily 022 Active carvedilol (COREG) 25 MG tablet TAKE 1 TABLET BY MOUTH TWICE A DAY 180 tablet 1 02/19/2 025 Active levothyroxine (SYNTHROID) 100 MCG tablet TAKE 1 TABLET BY MOUTH EVERY DAY 90 tablet 3 Active atorvastatin (LIPITOR) 20 MG tablet TAKE 1 TABLET BY MOUTH EVERY DAY 90 tablet 3 Active coenzyme Q10 60 MG CAPS Take 1 tablet by mouth daily Active meloxicam (MOBIC) 15 MG tablet Take 1 tablet by mouth daily Active hydroCHLOROthiazi de 12.5 MG tablet Take 1 tablet by mouth daily 90 tablet 3 Active omeprazole (PRILOSEC) 40 MG delayed release capsule Take 1 capsule by mouth daily 90 capsule 3 Active metFORMIN (GLUCOPHAGE) 500 MG tabletIndications :Type 2 diabetes mellitus without complication, without long-term current use of insulin (HCC) Take 1 tablet by mouth 2 times daily 180 tablet 3 Active lactulose (CHRONULAC) 10 GM/15ML solution TAKE 30 ML BY MOUTH DAILY NEEDED FOR CONSTIPATION FOR UP TO 30 DAYS. 237 mL 2 Active Additional Information Patient not taking.Reported on 11/09/2024 estradiol (ESTRACE VAGINAL) 0.1 MG/GM vaginal cream insert one inch of cream inside the vagina and place an additional dime sized amount to the urethra and inner labia every night for two weeks then three nights per week thereafter. Do NOT use plastic applicator. 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 SOLN solution Take 30 mLs by mouth daily as needed (constipation) 025 2024 Discontinued Active Problems Problem Noted Date Diagnosed Date Gastrointestinal hemorrhage with melena / Normal EGD 2024 / Likely from Liver Biopsy 09/29/2024 Hypothyroidism 02/26/2017 Mixed hyperlipidemia 05/19/2016 Type 2 diabetes mellitus wit hout complication, without long-term current use of insulin (HCC) / Metformin ER 05/19/2016 Mixed incontinence 02/12/2016 OAB (overactive bladder) 02/12/2016 Essential hypertension 05/08/2015 Primary biliary cirrhosis (HCC) / 2003 / MRI 202 3 05/24/2003 Resolved Problems Problem Noted Date Diagnosed Date Resolved Date Hypovolemic shock 09/29/2024 10/11/2024 Hypertension 04/03/2015 Hyperlipidemia 04/03/2015 Type 2 diabetes mellitus 03/2015 Encounters Date Type Department Care Team Description 11/13/2024 Orders Only [facility] [address] [place] [phone] ProviderEduarda MD 11/13/2024 Telephone [facility] [address] [place] [phone] Sandra Alvares APRN - MANAGER COLLECTION Results 11/09/2024 1:45 PM EDT Office Visit [facility] [address] [place] [phone] Sandra Alvares DRIVER/GUIDE - MANAGER COLLECTION Nocturia (Primary Dx); OAB (overactive bladder); Mixed incontinence 10/30/2024 Refill Magnus Shay MD [address] [place] [address] [place] [address] Magnus Shay MD Medication Refill 2024 Telephone Magnus Shay MD [facility] [place] [address] Magnus Shay MD update 10/18/2024 Telephone [facility] [place] [address] Magnus Shay MD update 10/11/2024 2:00 PM EDT Office Visit [facility] [place] [phone] Magnus Shay MD Primary biliary cirrhosis (HCC) / 2003 MRI 2022 (Primary Dx); Type 2 diabetes mellitus without complication, without long-term current use of insulin (HCC) / Metformin ER; Gastrointestinal hemorrhage with melena / Normal EGD 2024 / Likely from Liver Biopsy; Essential hypertension; OAB (overactive bladder); Hospital discharge follow-up 10/04/2024 Telephone Magnus Shay MD [address] [place] [address] [place] [address] Magnus Shay MD 10/04/2024 Telephone Magnus Shay MD [address] [place] [address] [place] [address] Magnus Shay MD Care Coordination 09/28/2024 1:32 PM EDT - 09/29/2024 6:13 PM EDT Hospital Encounter [facility] [address] [facility] [place] [address] Magnus Shay MD Discharge Disposition: Another Acute Care Hospital 09/28/2024 Travel 09/28/2024 Telephone [facility] of [facility] [address] [place] [phone] Sandra Alvares, DRIVER/GUIDE - MANAGER COLLECTION 09/27/2024 Orders Only Magnus Shay MD [address] [place] [address] [place] [address] Dulce Bess MA Generalized abdominal pain; History of liver biopsy 09/27/2024 Telephone Magnus Shay MD [address] [place] [address] [place] [address] Magnus Shay MD Results 09/26/2024 Refill Magnus Shay MD [address] [place] [address] [place] [address] Magnus Shay MD Medication Refill 09/26/2024 Orders Only Magnus Shay MD [address] [place] [address] [place] [address] Magnus Shay MD 09/26/2024 Telephone Magnus Shay MD [address] [place] [address] [place] [address] Magnus Shay MD order 09/25/2024 1:30 PM EDT Office Visit Magnus Shay MD [address] [place] [address] [place] [address] Magnus Shay MD Primary osteoarthritis involving multiple joints (Primary Dx); Type 2 diabetes mellitus without complication, without long-term current use of insulin (HCC) / Metformin ER; Primary biliary cirrhosis (HCC) / 2003 / MRI 2022; Mixed hyperlipidemia; Hypothyroidism; Essential hypertension 09/01/2024 Refill Magnus Shay MD [address] [place] [address] [place] [address] Magnus Shay MD Medication Refill 08/29/2024 Abstract Magnus Shay MD [address] [place] [address] [place] [address] Magnus Shay MD 08/23/2024 Abstract Magnus Shay MD [address] [place] [address] [place] [address] Tasha Arce MA from Last 3 Months Immunizations Immunization Administration Dates Next Due COVID-19, PFIZER Bivalent, D O NOT Dilute, (age 12y+), IM, 30 mcg/0.3 mL 09/27/2022,02/01/2022 COVID-19, PFIZER TERRY top, D O NOT Dilute, (age 12 y+), IM, 30 mcg/0.3 mL 08/27/2021 COVID-19, PFIZER PURPLE top, DILUTE for use, (age 12 y+), 30mcg/0.3mL 02/01/2022,02/15/2021,07/22/2020,2020 COVID-19, PFIZER, , ( age 12y+), IM, 30mcg/0.3mL 02/23/2023 Influenza A (S3H3-92) Vaccine PF IM 03/25/2009 Influenza Vaccine, unspecifi ed formulation 03/01/2017,03/04/2016 Influenza Virus Vaccine 01/25/2020,03/01,03/02/2016,2014,02/26/2014 Influenza, FLUAD, (age 65 y+ ), IM, Quadv, 0.5mL 02/02/2023 Influenza, FLUAD, (age 65 y+ ), IM, Trivalent PF, 0.5mL 02/28/2016 Influenza, FLUZONE High Dose (age 65 y+), IM, Quadv, 0.7mL 02/01/2022,02/03/2021,02/03/2021,2019 Influenza, FLUZONE High Dose , (age 65 y+), IM, Trivalent PF, 0.5mL 02/11/2024,02/14/2019,02/28/2018,2016,03/13/2015 Influenza, Intradermal, Pres ervative free 03/24/2015 Pneumococcal, PCV-13, PREVNA R 13, (age 6w+), IM, 0.5mL 03/04/2016,05/01/2015 Pneumococcal, PPSV23, PNEUMO VAX 23, (age 2y+), SC/IM, 0.5mL 02/28/2018,03/24/2011 RSV, ABRYSVO, ( or a ge 60y+), PF, IM, 0.5mL 02/23/2023 Zoster Live (Zostavax) 10/04/2013,02/26/2012 Family History Medical History Relation Name Comments Arthritis Father Depression Father Heart Disease Father Mental Illness Father Thyroid Disease Father Anemia Mother Arthritis Mother Depression Mother Diabetes Mother High Blood Pressure Mother Mental Illness Mother Thyroid Disease Mother Allergies Sister 1 Asthma Sister 1 Relation Name Status Comments Father Maternal Grandfather Maternal Grandmother Mother Paternal Grandfather Paternal Grandmother Sister 1 Alive Sister 2 Alive Sister 3 Alive Social History Tobacco Use Types Packs/Day Years Used Date Smoking Tobacco: Former Cigarettes 0.3 8 1 967 - 1974 Smokeless Tobacco: Never Comments:smoked socially on occassion until 1999 Alcohol Use Standard Drinks/Week Comments Not Currently 0 (1 standard drink = 0.6 oz pur e alcohol) social [facility] Utilities Answer Date Recorded In the past 12 months has e [employer], or water [employer] threatened to shut off services in your [...] 03/27/2024 How often do you attend chur ch or spiritism services? 1 to 4 times per year 03/27/2024 Do you belong to any clubs o r organizations such as baptist groups, unions, fraternal or athletic groups, or [...] Date Recorded PHQ-9 Total Score 2 10/11/2024 [facility] - [...] place to sleep or slept in a correction (including now)? No 10/01/2023 Housing Stability Vital Sign Answer Ariel e Recorded In the last 12 months, was t here a time when you were not able to pay the mortgage or rent on time? No 09/28/2024 In the past 12 months, how m any times have you moved where you were living? 0 09/28/2024 At any time in the past 12 m [facility], were you homeless or living in a correction (including now)? No 09/28/2024 Food Insecurity Answer [...] Orientation Straight 10/18/2019 5: 43 PM EDT Last Filed Vital Signs Vital Sign Reading Time Taken Comments Blood Pressure 138/70 11/09/2024 1:46 PM EDT Pulse 73 10/11/2024 1:49 PM EDT Temperature 36.5 C (97.7 F) 11/09/2024 1:46 PM EDT Respiratory Rate 19 09/29/2024 6:00 PM EDT Oxygen Saturation 98% 09/29/2024 6:00 PM EDT Inhaled Oxygen Concentration - - Weight 69.4 kg (153 lb) 11/09/2024 1:46 PM EDT Height 154.9 cm (5' 1 ) 10/11/2024 1:49 PM EDT Body Mass Index 28.91 10/11/2024 1:49 PM EDT Plan of Treatment Upcoming Encounters Date Type Department Care Team (Late st Contact Info) Description 12/12/2024 2:00 PM EDT Office Visit Magnus Shay MD [address] [place] [address] [place] [phone] Magnus Shay MD [address] [place] [address], [place] [address] 2 month gc 12/19/2024 2:15 PM EDT Office Visit [facility] [address] [place] [address] Destinee Coughlin, WM - CNM [address] [place] [address] [address] [place] [address] yearly-last PAP 12/15/2022-Medicare 02/06/2025 2:00 PM EDT Office Visit [facility] UR[facility] [address] [place] [address] Sandra Alvares, DRIVER/GUIDE - MANAGER COLLECTION [address] [place] [address] [address] [place] [phone] 3M interstim check. remind patient to charge 04/11/2025 9:50 AM EST Office Visit Magnus Shay MD [address] [facility] [place] [address] Magnus Shay MD [address] [place] [address], [place] [address] maw Health Maintenance Due Date Last Done Comments Fecal-DNA (Cologuard): Average risk 1994 Sigmoidoscopy/CT colonography 1994 Shingles vaccine (2 of 3) 11/29/2013 10/04/2013, 09/2011 DTaP/Tdap/Td vaccine (1 - Tdap) 12/05/2024 Postponed from 1968 (Patient Refused) Diabetic foot exam 12/14/2024 12/15/2023, 1 , 03/12/2021, Additional history exists Flu vaccine (#1) 12/22/2024 02/11/2024, 04/2023, 02/01/2022, Additional history exists Annual Wellness Visit (Medicare) 03/28/2025 03/27/2024, 03/24/2023, 03/17/2022, Additional history exists COVID-19 Vaccine ( season) 2025 02/25/2024, 08/13/2023, 02/23/2023, Additional history exists Postponed from 08/25/2024 (Patient Refused) Hepatitis A vaccine (1 of 2 - Risk 2-dose series) 09/25/2025 Postponed from 1968 (Patient Refused) A1C test (Diabetic or Prediabetic) 09/26/2025 09/26/2024, 05/02/2024, 05/02/2024, Additional history exists Diabetic Alb to Cr ratio (uACR) test 09/26/2025 09/26/2024, 03/25/2015 (Previously completed) Lipids 09/26/2025 09/26/2024, 08/24, 03/10/2022, Additional history exists FIT/FOBT: Average risk 09/29/2025 09/29/2024 GFR test (Diabetes, CKD 3-4, OR last GFR 15-59) 09/29/2025 09/29/2024, 09/28/2024, 03/10/2022, Additional history exists Depression Screen 10/11/2025 10/11/2024, 10/11/2024 Diabetic retinal exam 03/13/2026 03/13/2024 , 03/11/2023, 03/10/2022, Additional history exists Colonoscopy 12/03/2026 12/03/2016, 09/2015, 08/22/2002 (Previously completed) Colorectal Cancer Screen 12/03/2026 Hepatitis C screen Addressed 09/25/2015 (Declined) Overridden with the intention of not completing the topic Pneumococcal 50+ years Vaccine Completed 02/28/2018, 03/04/2016, 05/01/2015, Additional history exists DEXA (modify frequency per FRAX score) Completed 10/30/2022, 09/19/2014 (Previously completed) Respiratory Syncytial Virus (RSV) or age 60 yrs+ Completed 02/23/2023 Breast cancer screen Discontinued 02/15/2024, 02/15/2024, 12/28/2022, Additional history exists Hepatitis B vaccine Discontinued Hib vaccine Aged Out No longer eligi ble based on patient's age to complete this topic Meningococcal (ACWY) vaccine Aged Out No longer eligible based on patient's age to complete this topic Meningococcal B vaccine Aged Out No l onger eligible based on patient's age to complete this topic Polio vaccine Aged Out No longer elig ible based on patient's age to complete this topic Medical Devices Implanted Type Area Ferris Wheel Attendant Device Identifier Shelf Expiration Date Model / Serial / Lot Kit Lead Sure Scan Interstim Mri - [id number] Implanted:Qty: 1 on 08/05/2021 by Mj Alvarenga MD at [facility] Spine:St imulator [employer]PMM 12/16/2022 [id number] / / [id number] Generator Neurostimulator [id number] Thk3in [facility] Prod - [id number] Implanted:Qty: 1 on 08/05/2021 by Mj Alvarenga MD at [facility] [employer] 11/18/2022 [id number] / [id number] / Description:PIN# [id number] Procedures Procedure Name Priority Date/Time Associated Diagnosis Comments URINE PCR MULTIPLEX Routine 11/11/2024 8:36 AM EDT CLARA,POST-VOID RES,US,NON-IMAGING Routine 11/09/2024 2:26 PM EDT Nocturia OAB (overactive bladder) Mixed incontinence HEMOGLOBIN AND HEMATOCRIT Timed 09/29/2024 4:00 PM EDT EKG RHYTHM STRIP Routine 09/29/2024 3:00 PM EDT NM HEPATOBILIARY SCAN W PHARMACOLOGICAL INTERVENTION Routine 09/29/2024 1:32 PM EDT TRANSFUSE RED BLOOD CELLS Routine 09/29/2024 11:52 AM EDT HEMOGLOBIN AND HEMATOCRIT Timed 09/29/2024 9:05 AM EDT BLOOD OCCULT STOOL DIAGNOSTIC [employer] Label Print 09/29/2024 6:45 AM EDT EKG RHYTHM STRIP Routine 09/29/2024 6:00 AM EDT APTT STAT 09/29/2024 4:35 AM EDT PROTIME-INR STAT 09/29/2024 4:35 AM EDT TRANSFUSE RED BLOOD CELLS Routine 09/29/2024 4:22 AM EDT AMMONIA STAT 09/29/2024 4:03 AM EDT LACTIC ACID Routine 09/29/2024 4:03 AM EDT CBC WITH AUTO DIFFERENTIAL Routine 09/29/2024 4:03 AM EDT COMPREHENSIVE METABOLIC PANEL W/ REFLEX TO MG FOR LOW K Routine 09/29/2024 4:03 AM EDT EKG 12-LEAD Routine 09/29/2024 3:46 AM EDT EKG 12-LEAD Routine 09/29/2024 3:46 AM EDT Procedure Note - Result, Unknown Provider - 09/29/2024 3:46 AM EDTThis note is in progress. Consider ACUTE CORONARY SYNDROME (ACS) Sinus bradycardia with short NJ with Premature atrial complexes Nonspecific ST abnormality ECG interpretation of ACS is based on presence of symptoms and STdepression in Anterolateral leads Abnormal ECG When compared with ECG of 28-Sep-2024 14:51, (unconfirmed) Premature atrial complexes are now Present NJ interval has decreased Nonspecific T wave abnormality no longer evident in Anterior leads GLUCOSE, WHOLE BLOOD Routine 09/29/2024 3:43 AM EDT EKG RHYTHM STRIP Routine 09/29/2024 12:00 AM EDT MICROSCOPIC URINALYSIS Routine 09/28/2024 5:22 PM EDT URINALYSIS WITH REFLEX TO CULTURE [employer] Label Print 09/28/2024 5:22 PM EDT TYPE AND SCREEN Routine 09/28/2024 4:20 PM EDT LACTATE, SEPSIS Timed 09/28/2024 4:20 PM EDT CULTURE, BLOOD 2 STAT 09/28/2024 4:20 PM EDT CTA CHEST ABDOMEN PELVIS W CONTRAST STAT 09/28/2024 3:14 PM EDT EKG RHYTHM STRIP Routine 09/28/2024 3:00 PM EDT EKG 12-LEAD Routine 09/28/2024 2:51 PM EDT APTT STAT 09/28/2024 2:05 PM EDT PROTIME-INR Routine 09/28/2024 2:05 PM EDT COMPREHENSIVE METABOLIC PANEL W/ REFLEX TO MG FOR LOW K Routine 09/28/2024 2:05 PM EDT CBC WITH AUTO DIFFERENTIAL Routine 09/28/2024 2:05 PM EDT PROCALCITONIN Routine 09/28/2024 2:05 PM EDT LIPASE Routine 09/28/2024 2:05 PM EDT LACTATE, SEPSIS Timed 09/28/2024 2:05 PM EDT CULTURE, BLOOD 1 STAT 09/28/2024 2:05 PM EDT ALBUMIN/CREATININE RATIO, URINE Routine 09/26/2024 1:45 PM EDT CBC Routine 09/26/2024 1:41 PM EDT LIPID PANEL Routine 09/26/2024 1:41 PM EDT TSH Routine 09/26/2024 1:41 PM EDT HEMOGLOBIN A1C Routine 09/26/2024 11:36 AM EDT DIABETES EYE EXAM Routine 03/13/2024 HM MAMMOGRAPHY Routine 02/15/2024 1:54 PM EDT DIABETES FOOT EXAM Routine 12/15/2023 Type 2 diabetes mellitus without complication, without long-term current use of insulin (HCC) / metformin HM DEXA SCAN Routine 10/30/2022 HM COLONOSCOPY Routine 12/03/2016 from Last 3 Months or Most Recently Relevant to Health Maintenance Results * Urine PCR Multiplex (11/11/2024 8:36 AM EDT) Urine (Urine) us Historical Provider MICROBIOLOGY - GENERAL OR DERABLES Final Result * (ABNORMAL) Hemoglobin and Hematocrit (09/29/2024 4:00 PM EDT) Only the most recent of2 resultswithin the time period is included. Hemoglobin 8.9(L) 11.9 - 15.1 g/dL 09/29/2024 4:00 PM EDT [facility] Hematocrit 27.3(L) 36.3 - 47.1 % 09/29/2024 4:00 PM EDT [facility] Blood BLOOD SPECIMEN / Unknown 09/29/2024 4:00 PM EDT 09/29/2024 4:02 PM EDT us Magnus Shay MD HEMATOLOGY ORDERABLES Final Result Performing Organization Address [facility]/ZIP Co de Phone Number [facility] [address] [place] [address] * EKG Rhythm Strip (09/29/2024 3:00 PM EDT) Only the most recent of4 resultswithin the time period is included. 09/29/2024 3:00 PM EDT Narrative [facility] - 09/29/2024 3:20 PM EDT us Unknown Provider Result ECG ORDERABLES Final Re sult Performing Organization Address [facility] Co de Phone Number [facility] [address] [place] [address] * Transfuse RBC (09/29/2024 2:48 PM EDT) Only the most recent of2 resultswithin the time period is included. us Teresa Moss DRIVER/GUIDE - MANAGER COLLECTION NURSI NG TREATMENT ORDERABLES - BLOOD ADMIN Final Result * NM HEPATOBILIARY SCAN W EJECTION FRACTION (09/29/2024 1:32 PM EDT) Anatomical Region Laterality Modality Abdomen Nuclear Medicine 09/29/2024 3:03 PM EDT Impressions 09/29/2024 3:07 PM EDT Nonvisualization of the gallbladder taken out to 2 hours. The findings could represent either acute cholecystitis or chronic cholecystitis. No enterogastric bile reflux Narrative 09/29/2024 3:07 PM EDT EXAMINATION: NUCLEAR MEDICINE HEPATOBILIARY SCINTIGRAPHY (HIDA SCAN). 09/29/2024 12:55 pm TECHNIQUE: Approximately 5.1 mCi Tc-99m Mebrofenin (Choletec) was administered IV. Then, dynamic images of the abdomen were obtained in the anterior projection for 60 min(s). A right lateral view was also obtained at 60 min(s). Imaging in the anterior projection and lateral projection was performed at 2 hours. COMPARISON: CT angiogram of the chest, abdomen, pelvis done September 28, 2024 HISTORY: ORDERING SYSTEM PROVIDED HISTORY: sludge TECHNOLOGIST PROVIDED HISTORY: sludge Reason for Exam: cholelithiasis FINDINGS: Following administration of radiotracer prompt uptake of radiotracer is seen in the liver with no persistence of cardiac blood pool activity. The biliary tree is visualized by 30 minutes. Gallbladder activity is not demonstrated up to 2 hours of imaging. Bowel activity is demonstrated at 30 minutes. Progressive radiotracer excretion is demonstrated from the liver to the small-bowel. Good aboral progression of radiotracer from the proximal to distal small bowel is seen. No enterogastric bile reflux is noted. Procedure Note Bonita Torres MD - 09/29/2024 EXAMINATION: NUCLEAR MEDICINE HEPATOBILIARY SCINTIGRAPHY (HIDA SCAN). 09/29/2024 12:55pm TECHNIQUE: Approximately 5.1 mCi Tc-99m Mebrofenin (Choletec) was administered IV. Then, dynamic images of the abdomen were obtained in the anteriorprojection for 60 min(s). A right lateral view was also obtained at 60 min(s).Imaging in the anterior projection and lateral projection was performed at 2hours. COMPARISON: CT angiogram of the chest, abdomen, pelvis done September 28, 2024 HISTORY: ORDERING SYSTEM PROVIDED HISTORY: sludge TECHNOLOGIST PROVIDED HISTORY: sludge Reason for Exam: cholelithiasis FINDINGS: Following administration of radiotracer prompt uptake of radiotracer isseen in the liver with no persistence of cardiac blood pool activity. The biliary tree is visualized by 30 minutes. Gallbladder activity is not demonstrated up to 2 hours of imaging. Bowel activity is demonstrated at 30 minutes. Progressive radiotracer excretion is demonstrated from the liver to the small-bowel. Good aboral progression of radiotracer from the proximalto distal small bowel is seen. No enterogastric bile reflux is noted. IMPRESSION: Nonvisualization of the gallbladder taken out to 2 hours. The findingscould represent either acute cholecystitis or chronic cholecystitis. No enterogastric bile reflux us Smita Washington DRIVER/GUIDE - MANAGER COLLECTION IMG NM ORDERABLES Final Result * (ABNORMAL) Blood occult stool #1 (09/29/2024 6:45 AM EDT) Occult Blood, Stool #1 POSITIVE(A ) NEGATIVE 09/29/2024 6:45 AM EDT [facility] Date, Stool #1 TIMED 09/29/2024 6:45 AM EDT [facility] Time, Stool #1 [id number] 09/29/2024 6:45 AM EDT [facility] STOOL SPECIMEN / Unknown 09/29/2024 6:45 AM EDT 09/29/2024 6:54 AM EDT Smita Washington DRIVER/GUIDE - MANAGER COLLECTION BODY FLUIDS AND STOOLS ORDERABLES Final Result Performing Organization Address [facility]/ZIP Co de Phone Number [facility] [address] [place] [address] * PTT (09/29/2024 4:35 AM EDT) Only the most recent of2 resultswithin the time period is included. APTT 33.6 26.8 - 34.8 sec 09/29/2024 4:35 AM EDT [facility] Comment: IV Heparin Therapy Range: 62.0-94.0 Blood BLOOD SPECIMEN / Unknown 09/29/2024 4:35 AM EDT 09/29/2024 4:42 AM EDT us Smita Washington DRIVER/GUIDE - MANAGER COLLECTION HEMATOLOGY ORDERABLES F inal Result Performing Organization Address [facility]/ZIP Co de Phone Number [facility] [address] [place] [address] * (ABNORMAL) Protime-INR (09/29/2024 4:35 AM EDT) Only the most recent of2 resultswithin the time period is included. Protime 17.0(H) 11.7 - 14.1 sec 09/29/2024 4:35 AM EDT [facility] INR 1.4 09/29/2024 4:35 AM EDT [facility] Comment: Therapeutic Range: Moderate Anticoagulant Intensity: INR = 2.0-3.0 High Anticoagulant Intensity: INR = 2.5-3.5 Blood BLOOD SPECIMEN / Unknown 09/29/2024 4:35 AM EDT 09/29/2024 4:42 AM EDT Smita Washington DRIVER/GUIDE - MANAGER COLLECTION HEMATOLOGY ORDERABLES F inal Result [facility] [address] [phone] * (ABNORMAL) Comprehensive Metabolic Panel w/ Reflex to MG (09/29/2024 4:03 AM EDT) Only the most recent of2 resultswithin the time period is included. Pathologist [facility] Sodium 139 136 - 145 mmol/L 09/29/2024 4:03 AM T [facility] Potassium 4.8 3.7 - 5.3 mmol/L 09/29/2024 4:03 AM [facility] Chloride 109(H) 98 - 107 mmol/L 09/29/2024 4:03 AM T [facility] CO2 17(L) 20 - 31 mmol/L 09/29/2024 4:03 AM [facility] Anion Gap 13 9 - 16 mmol/L 09/29/2024 4:03 AM [facility] Glucose 171(H) 74 - 99 mg/dL 09/29/2024 4:03 AM [facility] BUN 54(H) 8 - 23 mg/dL 09/29/2024 4:03 AM T [facility] Creatinine 1.8(H) 0.50 - 0.90 mg/dL 09/29/2024 4:03 AM [facility] Est, [place] Filt Rate 29(L) >60 mL/min/1.7 3m2 09/29/2024 4:03 AM [facility] Comment: These results are not intended for use in patients <18 years of age. eGFR results are calculated without a race factor using the 2020 CKD-EPI equation. Careful clinical correlation is recommended, particularly when comparing to results calculated using previous equations. The CKD-EPI equation is less accurate in patients with extremes of muscle mass, extra-renal metabolism of creatine, excessive creatine ingestion, or following therapy that affects renal tubular secretion. BUN/Creatinine Ratio 30(H) 9 - 20 09/29/2024 4:03 AM [facility] Calcium 8.3(L) 8.6 - 10.4 mg/dL 09/29/2024 4:03 AM [facility] Total Protein 5.7(L) 6.6 - 8.7 g/dL 09/29/2024 4:03 AM [facility] Albumin 3.3(L) 3.5 - 5.2 g/dL 09/29/2024 4:03 AM [facility] Albumin/Globulin Ratio 1.3 1.0 - 2.5 09/29/2024 4:03 AM [facility] Total Bilirubin 0.9 0.00 - 1.20 mg/dL 09/29/2024 4:03 AM [facility] Alkaline Phosphatase 181(H) 35 - 104 U/L 09/29/2024 4:03 AM [facility] ALT 71(H) 10 - 35 U/L 09/29/2024 4:03 AM [facility] AST 83(H) 10 - 35 U/L 09/29/2024 4:03 AM [facility] Blood BLOOD SPECIMEN / Unknown 09/29/2024 4:03 AM EDT 09/29/2024 4:09 AM EDT Smita Washington DRIVER/GUIDE - MANAGER COLLECTION CHEMISTRY ORDERABLES Fi nal Result [facility] [address] [id number], [facility] [phone] * (ABNORMAL) CBC auto differential (09/29/2024 4:03 AM EDT) Only the most recent of2 resultswithin the time period is included. WBC 7.3 3.5 - 11.3 k/uL 09/29/2024 4:03 AM [facility] RBC 2.28(L) 3.95 - 5.11 m/uL 09/29/2024 4:03 AM [facility] Hemoglobin 6.8(LL) 11.9 - 15.1 g/dL 09/29/2024 4:03 AM [facility] Hematocrit 21.7(L) 36.3 - 47.1 % 09/29/2024 4:03 AM [facility] MCV 95.2 82.6 - 102.9 fL 09/29/2024 4:03 AM [facility] MCH 29.8 25.2 - 33.5 pg 09/29/2024 4:03 AM [facility] MCHC 31.3 28.4 - 34.8 g/dL 09/29/2024 4:03 AM [facility] RDW 14.3 11.8 - 14.4 % 09/29/2024 4:03 AM [facility] Platelets See Reflexed IPF Result 138 - 453 k/uL 09/29/2024 4:03 AM [facility] Platelet, Fluorescence 91(L) 138 - 453 k/uL 09/29/2024 4:03 AM [facility] Platelet, Immature Fraction 3.7 1.1 - 10.3 % 09/29/2024 4:03 AM [facility] NRBC Automated 0.0 0.0 per 100 WBC 09/29/2024 4:03 AM [facility] Neutrophils % 75(H) 36 - 65 % 09/29/2024 4:03 AM [facility] Lymphocytes % 13(L) 24 - 43 % 09/29/2024 4:03 AM [facility] Monocytes % 12 3 - 12 % 09/29/2024 4:03 AM [facility] Eosinophils % 0(L) 1 - 4 % 09/29/2024 4:03 AM [facility] Immature Granulocytes % 0 0 % 09/29/2024 4:03 AM [facility] Basophils % 0 0 - 2 % 09/29/2024 4:03 AM [facility] Neutrophils Absolute 5.47 1.50 - 8.10 k/uL 09/29/2024 4:03 AM [facility] Lymphocytes Absolute 0.95(L) 1.10 - 3.70 k/uL 09/29/2024 4:03 AM [facility] Monocytes Absolute 0.88 0.10 - 1.20 k/uL 09/29/2024 4:03 AM [facility] Eosinophils Absolute 0.00 0.00 - 0.44 k/uL 09/29/2024 4:03 AM [facility] Immature Granulocytes Absolute 0.00 0.00 - 0.30 k/uL 09/29/2024 4:03 AM [facility] Basophils Absolute 0.00 0.00 - 0.20 k/uL 09/29/2024 4:03 AM [facility] Morphology Platelet scan shows Decreased Platelets 09/29/2024 4:03 AM [facility] 09/29/2024 4:03 AM EDT 09/29/2024 4:09 AM EDT us Smita Washington DRIVER/GUIDE - MANAGER COLLECTION HEMATOLOGY ORDERABLES F inal Result [facility] [address] [place] [phone] * (ABNORMAL) Lactic Acid (09/29/2024 4:03 AM EDT) Lactic Acid 2.4(H) 0.5 - 2.2 mmol/L 09/29/2024 4:03 AM EDT [facility] Blood BLOOD SPECIMEN / Unknown 09/29/2024 4:03 AM EDT 09/29/2024 4:07 AM EDT Smita L Felix DRIVER/GUIDE - MANAGER COLLECTION CHEMISTRY ORDERABLES Fi nal Result Performing Organization Address City/[facility]/ZIP Co de Phone Number [facility] [address] [place] [address] * Ammonia (09/29/2024 4:03 AM EDT) Ammonia 23 11 - 51 umol/L 09/29/2024 4:03 AM EDT [facility] Blood BLOOD SPECIMEN / Unknown 09/29/2024 4:03 AM EDT 09/29/2024 4:10 AM EDT Smita Celestina Felix DRIVER/GUIDE - MANAGER COLLECTION CHEMISTRY ORDERABLES Fi nal Result Performing Organization Address City/[facility]/ZIP Co de Phone Number [facility] [address] [place] [address] * EKG 12 Lead (09/29/2024 3:46 AM EDT) Only the most recent of2 resultswithin the time period is included. Ventricular Rate 54 BPM [facility] Atrial Rate 54 BPM [facility] P-R Interval 88 ms [facility] QRS Duration 78 ms [facility] Q-T Interval 428 ms [facility] QTc Calculation (Bazett) 405 ms [facility] P Vulcan 74 degrees [facility] R Vulcan 25 degrees [facility] T Vulcan 30 degrees [facility] 09/29/2024 3:46 AM EDT Narrative [facility] - 09/29/2024 8:23 AM EDT Consider ACUTE CORONARY SYNDROME (ACS) Sinus bradycardia with short NJ with Premature atrial complexes Nonspecific ST abnormality ECG interpretation of ACS is based on presence of symptoms and ST depression in Anterolateral leads Abnormal ECG When compared with ECG of 28-Sep-2024 14:51, Premature atrial complexes are now Present NJ interval has decreased Nonspecific T wave abnormality no longer evident in Anterior leads Confirmed by John Galindo ([id number]) on 09/29/2024 8:23:04 AM Procedure Note John Galindo MD - 09/29/2024 Consider ACUTE CORONARY SYNDROME (ACS) Sinus bradycardia with short NJ with Premature atrial complexes Nonspecific ST abnormality ECG interpretation of ACS is based on presence of symptoms and STdepression in Anterolateral leads Abnormal ECG When compared with ECG of 28-Sep-2024 14:51, Premature atrial complexes are now Present NJ interval has decreased Nonspecific T wave abnormality no longer evident in Anterior leads Confirmed by John Galindo ([id number]) on 09/29/2024 8:23:04 AM us Smita Ramos CNP ECG ORDERABLES Final R esult Performing Organization Address City/[facility]/ZIP Co de Phone Number [facility] * (ABNORMAL) Glucose, Whole Blood (09/29/2024 3:43 AM EDT) Pathologist [facility] POC Glucose 178(H) 74 - 100 mg/dL 09/29/2024 3:43 AM EDT [facility] 09/29/2024 3:43 AM EDT 09/29/2024 4:24 AM EDT us Magnus Shay MD CHEMISTRY ORDERABLES Final Result Performing Organization Address [facility]/ZIP Co de Phone Number [facility] [address] [place] [address], [facility] [phone] * (ABNORMAL) Urinalysis with Reflex to Culture (09/28/2024 5:22 PM EDT) Color, UA Yellow Yellow 09/28/2024 5:22 PM EDT [facility] Turbidity UA Clear Clear 09/28/2024 5:22 PM EDT [facility] Glucose, Ur NEGATIVE NEGATIVE mg/dL 09/28/2024 5:22 PM EDT [facility] Bilirubin, Urine SMALL(A) NEGATIVE 09/28/2024 5:22 PM EDT [facility] Ketones, Urine NEGATIVE NEGATIVE mg/dL 09/28/2024 5:22 PM EDT [facility] Specific [place], UA 1.010 1.010 - 1.020 09/28/2024 5:22 PM EDT [facility] Urine Hgb NEGATIVE NEGATIVE 09/28/2024 5:22 PM EDT [facility] pH, Urine 6.0 5.0 - 9.0 09/28/2024 5:22 PM EDT [facility] Protein, UA NEGATIVE NEGATIVE mg/dL 09/28/2024 5:22 PM EDT [facility] Urobilinogen, Urine Normal 0.0 - 1.0 EU/dL 09/28/2024 5:22 PM EDT [facility] Nitrite, Urine NEGATIVE NEGATIVE 09/28/2024 5:22 PM EDT [facility] Leukocyte Esterase, Urine NEGATIVE NEGATIVE 09/28/2024 5:22 PM T [facility] Urine 09/28/2024 5:22 PM EDT 09/28/2024 5:31 PM EDT us Teresa Moss DRIVER/GUIDE - MANAGER COLLECTION URINE ORDERAB LES Final Result [facility] [address] [id number] [phone] * (ABNORMAL) Microscopic Urinalysis (09/28/2024 5:22 PM EDT) WBC, UA 0 TO 2 0 - 5 /HPF 09/28/2024 5:22 PM EDT [facility] RBC, UA None 0 - 2 /HPF 09/28/2024 5:22 PM EDT [facility] Epithelial Cells, UA 0 TO 2 0 - 25 /HPF 09/28/2024 5:22 PM EDT [facility] Mucus, UA TRACE(A) None 09/28/2024 5:22 PM EDT [facility] 09/28/2024 5:22 PM EDT 09/28/2024 5:31 PM EDT Teresa Moss APRN - MANAGER COLLECTION URINE ORDERAB LES Final Result Performing Organization Address [facility]/ZIP Co de Phone Number [facility] [address] [place] [address] * (ABNORMAL) Lactate, Sepsis (09/28/2024 4:20 PM EDT) Only the most recent of2 resultswithin the time period is included. Lactic Acid, Sepsis 2.0(H) 0.5 - 1.9 mmol/L 09/28/2024 4:20 PM EDT [facility] BLOOD SPECIMEN / Unknown 09/28/2024 4:20 PM EDT 09/28/2024 4:35 PM EDT Teresa Moss APRN - MANAGER COLLECTION CHEMISTRY ORD ERABLES Final Result Performing Organization Address [facility]/ZIP Co de Phone Number [facility] [address] [place] [address] * Culture, Blood 2 (09/28/2024 4:20 PM EDT) Specimen Description .BLOOD 09/28/2024 4:20 PM EDT [facility] Special Requests rfa, 2ml 09/29/19 4:20 PM EDT [facility] Culture NO GROWTH 5 DAYS 09/28/2024 4:20 PM EDT [facility] BLOOD SPECIMEN / Unknown 09/28/2024 4:20 PM EDT 09/28/2024 4:36 PM EDT us Teresa Moss DRIVER/GUIDE - MANAGER COLLECTION MICROBIOLOGY - GENERAL ORDERABLES Final Result [facility] [address] [phone] * TYPE AND SCREEN (09/28/2024 4:20 PM EDT) [facility] Blood Bank Sample Expiration 10/01/2024,2353 09/28/2024 5:24 PM EDT [facility] Arm Band Number [id number] 5:24 PM EDT [facility] ABO/Rh A POSITIVE 09/28/2024 5:24 PM EDT [facility] Antibody Screen NEGATIVE 5:24 PM EDT [facility] Unit Number [id number] 09/28/2024 5:32 PM EDT [facility] Component Leukocyte Reduced Red Cell 09/28/2024 5:32 PM [facility] Unit Divison 00 09/28/2024 5:32 PM EDT [facility] Dispense Status Blood Bank TRANSFUSED 09/30/2024 12:57 AM [facility] Unit Issue Date/Time [id number] 09/30/2024 12:57 AM [facility] Product Code Blood Bank [id number] 09/30/2024 12:57 AM [facility] Blood Bank Unit Type and Rh A POS 09/30/2024 12:[facility] IS[facility] Product Blood Type 6200 09/30/2024 12:57 [facility] Blood Product Expiration Date [id number] 09/30/2024 12:57 AM EDT [facility] Transfusion Status OK TO TRANSFUSE 09/28/2024 5:32 PM EDT [facility] Crossmatch Result COMPATIBLE 09/28/2024 5:32 PM EDT [facility] Unit Number [id number] 09/28/2024 5:32 PM EDT [facility] Component Leukocyte Reduced Red Cell 09/28/2024 5:32 PM EDT [facility] Unit Divison 00 09/28/2024 5:32 PM EDT [facility] Dispense Status Blood Bank TRANSFUSED 09/30/2024 12:57 AM EDT [facility] Unit Issue Date/Time [id number] 09/30/2024 12:57 AM EDT [facility] Product Code Blood Bank [id number] 09/30/2024 12:57 AM EDT [facility] Blood Bank Unit Type and Rh O POS 09/30/2024 12:57 AM EDT [facility] Blood Bank ISBT Product Blood Type 5100 09/30/2024 12:57 AM T [facility] Blood Bank Blood Product Expiration Date [id number] 09/30/2024 12:57 AM EDT [facility] Transfusion Status OK TO TRANSFUSE 09/28/2024 5:32 PM EDT [facility] Crossmatch Result COMPATIBLE 09/28/2024 5:32 PM EDT [facility] Blood BLOOD SPECIMEN / Unknown 09/28/2024 4:20 PM EDT 09/28/2024 4:35 PM EDT us Teresa Moss DRIVER/GUIDE - MANAGER COLLECTION BLOOD BANK TE ST ORDERABLES Final Result [facility] [address] [id number] [phone] * CTA CHEST ABDOMEN PELVIS W CONTRAST (09/28/2024 3:14 PM EDT) Anatomical Region Laterality Modality Chest, Abdomen, Pelvis, Hip Comp uted Tomography 09/28/2024 5:13 PM EDT Impressions 09/28/2024 5:23 PM EDT 1. No aortic aneurysm or dissection. There is moderate atherosclerosis with approximately 25% stenosis at the origin of the left subclavian artery due to fibrocalcific calcific plaque. 2. Distension of the gallbladder with cholelithiasis and tumefactive sludge in the gallbladder. The common bile duct is dilated measuring up to 1.3 cm and there is dependent soft tissue attenuation in the common bile duct believed to represent sludge. Correlation with liver function tests is suggested. 3. Hepatic cirrhosis with portal hypertension including splenomegaly and a small amount of ascites in the abdomen and pelvis. 4. Thickening of the central airways which could be related to bronchitis or reactive airways disease. 5. Colonic diverticulosis. Narrative 09/28/2024 5:23 PM EDT EXAMINATION: CTA OF THE CHEST, ABDOMEN AND PELVIS WITH CONTRAST 09/28/2024 2:13 pm: TECHNIQUE: CTA of the chest, abdomen and pelvis was performed after the administration of intravenous contrast. Multiplanar reformatted images are provided for review. MIP images are provided for review. Automated exposure control, iterative reconstruction, and/or weight based adjustment of the mA/kV was utilized to reduce the radiation dose to as low as reasonably achievable. COMPARISON: CT of the abdomen pelvis 01/28/2018. HISTORY: ORDERING SYSTEM PROVIDED HISTORY: abdominal pain TECHNOLOGIST PROVIDED HISTORY: abdominal pain FINDINGS: CTA CHEST: Thoracic aorta: The thoracic aorta is normal in caliber and opacified. There is mild fibrocalcific plaque at the aortic arch. There is no dissection or aneurysm. There is normal patency of the branches of the aortic arch. There is significant fibrocalcific plaque at the origin of the left subclavian artery with approximately 25% stenosis at the origin. Mediastinum: There is no lymphadenopathy. There is borderline cardiomegaly. There is no pericardial effusion. Lungs/Pleura: There is a calcified granuloma in the left lower lobe. Mild linear opacities at the lung bases likely represent atelectasis or scarring. There is no confluent airspace consolidation or pleural effusion. The central airways appear patent and are thickened. Soft Tissues/Bones: No acute bone or soft tissue abnormality. CTA ABDOMEN: Abdominal aorta/Branches: Moderate multifocal atheromatous plaque involves the abdominal aorta its branches with no aneurysm or dissection. There is no hemodynamically significant stenosis of the mesenteric or renal arteries. Organs: The liver has a nodular contour and there is hypertrophy of the left lobe. No focal liver lesion is noted. The gallbladder contains a stone and tumefactive sludge and is distended. The common bile duct is dilated measuring up to 1.3 cm and there is dependent soft tissue attenuation in the common bile duct believed to represent sludge. The spleen is enlarged measuring up to 16.5 cm. The adrenal glands and pancreas are unremarkable. The kidneys enhance normally. No suspicious renal parenchymal lesion, ureteral stone or hydronephrosis is identified. GI/Bowel: No bowel dilatation or bowel wall thickening is identified. There are colonic diverticula. There is no appendicitis. The stomach is unremarkable. Peritoneum/Retroperitoneum: There is no lymphadenopathy. There is a small amount of ascites near the liver. Elsewhere, no fat stranding, free fluid, free air or focal fluid collection is identified. Bones/Soft Tissues: No acute findings. CTA PELVIS: Aorta/Iliacs: The bilateral iliac and visualized femoral arteries are normal in caliber. There is multifocal atheromatous plaque with no dissection or stenosis. Other: The bladder appears normal. There has been a hysterectomy. There is trace ascites in the pelvis. Bones/Soft Tissues: There is a left hip arthroplasty. No fracture or suspicious bone lesion is identified. Procedure Note Harshad Jackson MD - 09/28/2024 EXAMINATION: CTA OF THE CHEST, ABDOMEN AND PELVIS WITH CONTRAST 09/28/2024 2:13 pm: TECHNIQUE: CTA of the chest, abdomen and pelvis was performed after theadministration of intravenous contrast. Multiplanar reformatted images are providedfor review. MIP images are provided for review. Automated exposure control, iterative reconstruction, and/or weight based adjustment of the mA/kVwas utilized to reduce the radiation dose to as low as reasonablyachievable. COMPARISON: CT of the abdomen pelvis 01/28/2018. HISTORY: ORDERING SYSTEM PROVIDED HISTORY: abdominal pain TECHNOLOGIST PROVIDED HISTORY: abdominal pain FINDINGS: CTA CHEST: Thoracic aorta: The thoracic aorta is normal in caliber and opacified.There is mild fibrocalcific plaque at the aortic arch. There is no dissectionor aneurysm. There is normal patency of the branches of the aortic arch.There is significant fibrocalcific plaque at the origin of the left subclavian artery with approximately 25% stenosis at the origin. Mediastinum: There is no lymphadenopathy. There is borderlinecardiomegaly. There is no pericardial effusion. Lungs/Pleura: There is a calcified granuloma in the left lower lobe.Mild linear opacities at the lung bases likely represent atelectasis orscarring. There is no confluent airspace consolidation or pleural effusion. The central airways appear patent and are thickened. Soft Tissues/Bones: No acute bone or soft tissue abnormality. CTA ABDOMEN: Abdominal aorta/Branches: Moderate multifocal atheromatous plaqueinvolves the abdominal aorta its branches with no aneurysm or dissection. There isno hemodynamically significant stenosis of the mesenteric or renalarteries. Organs: The liver has a nodular contour and there is hypertrophy of theleft lobe. No focal liver lesion is noted. The gallbladder contains a stoneand tumefactive sludge and is distended. The common bile duct is dilated measuring up to 1.3 cm and there is dependent soft tissue attenuation inthe common bile duct believed to represent sludge. The spleen is enlarged measuring up to 16.5 cm. The adrenal glands and pancreas areunremarkable. The kidneys enhance normally. No suspicious renal parenchymal lesion, ureteral stone or hydronephrosis is identified. GI/Bowel: No bowel dilatation or bowel wall thickening is identified.There are colonic diverticula. There is no appendicitis. The stomach is unremarkable. Peritoneum/Retroperitoneum: There is no lymphadenopathy. There is asmall amount of ascites near the liver. Elsewhere, no fat stranding, freefluid, free air or focal fluid collection is identified. Bones/Soft Tissues: No acute findings. CTA PELVIS: Aorta/Iliacs: The bilateral iliac and visualized femoral arteries arenormal in caliber. There is multifocal atheromatous plaque with no dissectionor stenosis. Other: The bladder appears normal. There has been a hysterectomy. Thereis trace ascites in the pelvis. Bones/Soft Tissues: There is a left hip arthroplasty. No fracture or suspicious bone lesion is identified. IMPRESSION: 1. No aortic aneurysm or dissection. There is moderate atherosclerosiswith approximately 25% stenosis at the origin of the left subclavian artery dueto fibrocalcific calcific plaque. 2. Distension of the gallbladder with cholelithiasis and tumefactivesludge in the gallbladder. The common bile duct is dilated measuring up to 1.3cm and there is dependent soft tissue attenuation in the common bile duct believed to represent sludge. Correlation with liver function tests is suggested. 3. Hepatic cirrhosis with portal hypertension including splenomegaly liane small amount of ascites in the abdomen and pelvis. 4. Thickening of the central airways which could be related to bronchitisor reactive airways disease. 5. Colonic diverticulosis. Teresa Moss APRN [facility] IMG CT ORDERA BLES Final Result * Culture, Blood 1 (09/28/2024 2:05 PM EDT) Specimen Description .BLOOD 09/28/2024 2:05 PM EDT [facility] Special Requests 20ml, rac 09/29/19 25 2:05 PM EDT [facility] Culture NO GROWTH 5 DAYS 09/28/2024 2:05 PM EDT [facility] BLOOD SPECIMEN / Unknown 09/28/2024 2:05 PM EDT 09/28/2024 2:16 PM EDT Teresa Moss [facility] MICROBIOLOGY - GENERAL ORDERABLES Final Result [facility] [address] [phone] * (ABNORMAL) Procalcitonin (09/28/2024 2:05 PM EDT) Procalcitonin 1.16(H) 0.00 - 0.09 ng/mL 09/28/2024 2:05 PM EDT [facility] Comment: Suspected Sepsis: <0.50 ng/mL Low likelihood of sepsis. 0.50-2.00 ng/mL Increased likelihood of sepsis. Antibiotics encouraged. >2.00 ng/mL High risk of sepsis/shock. Antibiotics strongly encouraged. Suspected Lower Resp Tract Infections: <0.24 ng/mL Low likelihood of bacterial infection. >0.24 ng/mL Increased likelihood of bacterial infection. Antibiotics encouraged. With successful antibiotic therapy, PCT levels should decrease rapidly. (Half- life of 24 to 36 hours.) Procalcitonin values from samples collected within the first 6 hours of systemic infection may still be low. Retesting may be indicated. Values from day 1 and day 4 can be entered into the Change in Procalcitonin Calculator (www.vvobpm-vov-jugtllykti.com) to determine the patient's Mortality Risk Prognosis In healthy neonates, plasma Procalcitonin (PCT) concentrations increase gradually after , reaching peak values at about 24 hours of age then decrease to normal values below 0.5 ng/mL by 48-72 hours of age. Blood BLOOD SPECIMEN / Unknown 09/28/2024 2:05 PM EDT 09/28/2024 2:16 PM EDT Teresa Moss APRN - MANAGER COLLECTION CHEMISTRY ORD ERABLES Final Result Performing Organization Address [facility]/ZIP Co de Phone Number [facility] [address] [place] [address] [phone] * Lipase (09/28/2024 2:05 PM EDT) Pathologist [facility] Lipase 42 13 - 60 U/L 09/28/2024 2:05 PM EDT [facility] Blood BLOOD SPECIMEN / Unknown 09/28/2024 2:05 PM EDT 09/28/2024 2:15 PM EDT Teresa Moss DRIVER/GUIDE - [facility] CHEMISTRY ORD ERABLES Final Result Performing Organization Address [facility]/ZIP Co de Phone Number [facility] [address] [phone] * Albumin/Creatinine Ratio, Urine (09/26/2024 1:45 PM EDT) Albumin/Creatin ine Ratio 43.0 mg/g Albumin Urine 1.3 MG/DL Creatinine, Ur 30.17 mg/dL Urine (Urine) Magnus Shay MD URINE ORDERABLES Edited Res ult - Final * (ABNORMAL) CBC (09/26/2024 1:41 PM EDT) WBC 4.4 10^3/mL Hemoglobin 9.1(A) 12.0 - 16.0 g/dL Hematocrit 28.4(A) 36 - 46 % Platelets 91 K/ L Neutrophils % 66.0 % Lymphocytes % 26.0 % Monocytes % 4.0 % Eosinophils % 4.0 % Basophils % 0.0 % Neutrophils Absolute 2.90 / L Lymphocytes Absolute 1.14 / L Monocytes Absolute 0.17 / L Eosinophils Absolute 0.17 / L Basophils Absolute 0.00 / L RBC 3.06 10^6/ L MCV 92.8 fL MCH 29.7 pg MCHC 32.0 g/dL MPV 12.2 fL Blood BLOOD SPECIMEN / Unknown Magnus Shay MD HEMATOLOGY ORDERABLES Edite d Result - Final * TSH (09/26/2024 1:41 PM EDT) TSH 2.112 uIU/mL Blood BLOOD SPECIMEN / Unknown Magnus Shay MD CHEMISTRY ORDERABLES Edited Result - Final * Lipid Panel (09/26/2024 1:41 PM EDT) Cholesterol, Total 116 mg/dL HDL 51 35 - 70 mg/dL LDL Cholesterol 44.4 Triglycerides 103 mg/dL Chol/HDL Ratio 2.3 VLDL 20.6 mg/dL Cholesterol non HDL Blood BLOOD SPECIMEN / Unknown Magnus Shay MD CHEMISTRY ORDERABLES Edited Result - Final * Hemoglobin A1C (09/26/2024 11:36 AM EDT) Hemoglobin A1C 6.4 % Estimated Avg Glucose 137 Blood BLOOD SPECIMEN / Unknown us Magnus Shay MD CHEMISTRY ORDERABLES Edited Result - Final * DIABETES EYE EXAM (03/13/2024) Diabetic Retinopathy Negative 03/13/2024 Provider Unknown PA HEALTH MAINTENANCE Edited Re sult - Final * MAMMOGRAPHY (02/15/2024 1:54 PM EDT) Anatomical Region Laterality Modality Other Provider Unknown PA HEALTH MAINTENANCE Final Res ult * DIABETES FOOT EXAM (12/15/2023) Magnus Shay MD HEALTH MAINTENANCE Final Re sult * DEXA SCAN (10/30/2022) Anatomical Region Laterality Modality Other Historical Provider HEALTH MAINTENANCE Final Result * COLONOSCOPY (12/03/2016) Historical Provider HEALTH MAINTENANCE Final Result from Last 3 Months or Most Recently Relevant to Health Maintenance Insurance MEDICARE [employer] MEDICARE SUPP MEDICARE [employer] MEDICARE SUPP Advance Directives * Full Code (Latest Code Status on File) Date Activated Date Inactivated Comments 09/28/2024 1:46 PM 09/29/2024 8:18 PM * Full Code Date Activated Date Inactivated Comments 08/05/2021 12:10 PM 08/05/2021 6:52 PM * Full Code Date Activated Date Inactivated Comments 04/07/2016 12:51 PM 04/07/2016 6:11 PM * Full Code Date Activated Date Inactivated Comments 03/24/2016 7:53 AM 03/24/2016 2:13 PM Care Teams Marine Electronics Technician Relationship Specialty Start Date End Date Magnus Shay MD [address] [place] [address], [place] [phone] PCP - General Internal Medicine 07/20/14
--- OUTSIDE RECORDS SUMMARY | 2024-11-21 16:02 | XMS_ITS | Encounter Summary ---
Author Organization [facility] Address [address] [email or web address] [address] Care Team Providers Care Expeller Operator Name Role Phone Magnus Shay MD Primary Care Provider [phone] Encounter Details Date Type Department Care Team (Late st Contact Info) Description 03/13/2024 Orders Only Magnus Shay MD [address] [place] [address] [place] [phone] Unknown, Provider, PA Social History Tobacco Use Types Packs/Day Years [...] How often do you attend chur or rastafarian services? 1 to 4 times per year 03/18/2022 Do you belong to any clubs o r organizations such as congregational groups, unions, fraternal or athletic groups, or [...] you have a drink containing alcohol? Never 03/21/2023 Q2: How many drinks containi ng alcohol do you have on a typical day when you are drinking? Patient does not drink Q3: How often do you have si x or more drinks on one occasion? Never 03/21/2023 Overall Financial Resource Strain (CARDIA) Answe r Date Recorded How hard is it for you to pa y for the very basics like food, housing, medical care, and heating? Not hard at all 10/01/2023 PHQ-2 Answer Date Recorded PHQ-9 Total Score 0 12/06/2023 [facility] - Occupational [...] to strenuous exercise (like a brisk walk)? 2 days 03/21/2023 On average, how many minutes do you engage in exercise at this level? 30 min 03/21/2023 Hunger Vital Sign Answer Date Recorded Within the past 12 months, y ou worried that your food would run out before you got the money to buy more. Never true 10/01/19 24 Within the past 12 months, t he food you bought just didn't last and you didn't have money to get more. Never true 10/01/2023 PRAPARE - Transportation Answer Date Re corded Lack of Transportation (Medical) Not on file 10/01/2023 In the past 12 months, has l ack of transportation kept you from meetings, work, or from getting things needed for daily living? No 10/01/2023 Housing Stability Vital Sign Answer [...] in a fpc (including now)? No 10/01/2023 Food Insecurity Answer Date Recorded Within the past 12 months, y ou worried that your food would run out before you got the money to buy more. 1 10/01/2023 Within the past 12 months, t he food you bought just didn't last and you didn't have money to get more. 1 10/01/2023 Comments No Sex and Gender Information Value [...] PM EDT Office Visit Magnus Shay MD [address] [place] [address] [place] [address] Magnus Shay MD [address] [facility], [place] [address] 2 month gc 12/19/2024 2:15 PM EDT Office Visit [facility] Part of [address] [place] [address] Destinee Coughlin, WM - [address] [place] [address] yearly-last PAP 12/15/2022-Medicare 02/06/2025 2:00 PM EDT Office Visit [facility] UR[facility] Part of [facility] [address] [place] [address] Sandra Avlares, DIE STORAGE CLERK - SILVERWARE WASHER [address] [facility] [address] [place] [address] 3M interstim check. remind patient to charge 04/11/2025 9:50 AM EST Office Visit Magnus Shay MD [address] [place] [phone] Magnus Shay MD [address] [place] [address] maw documented as of this encounter Procedures Procedure Name Priority Date/Time Associated Diagnosis Comments DIABETES EYE EXAM Routine 03/13/2024 documented in this encounter Results * DIABETES EYE EXAM (03/13/2024) Diabetic Retinopathy Negative 03/13/2024 us Provider Unknown PA HEALTH MAINTENANCE Edited Re sult - Final documented in this encounter Visit Diagnoses Not on filedocumented in this encounter Additional Health Concerns Assessment Noted Time A fall risk assessment has been complete d for the patient 12/06/2023 9:27 AM EDT A Body Mass Index follow-up plan has been documented for the patient 11/18/2021 4:24 PM EDT documented as of this encounter Care Teams Expeller Operator Relationship Specialty Start Date End Date Magnus Shay MD [address] [place] [address], [facility] [place] [address] PCP - General Internal Medicine 07/20/14 documented as of this encounter
--- OUTSIDE RECORDS SUMMARY | 2024-11-21 16:02 | XMS_ITS | Encounter Summary ---
Author Organization [employer] Address [id number] [address] [place] [address] Care Team Providers Care Exercise Equipment Specialist Name Role Phone Unavailable Primary Care Provider Unavailabl e Encounter Details Date Type Department Care Team (Late st Contact Info) Description 09/30/2024 Orders Only [facility] [address] [place] [address] Transcribe, Orders Support User Pain (Primary Dx) Social History Tobacco Use Types Packs/Day Years Used Date Smoking Tobacco: Former Cigarettes Smokeless Tobacco: Never Alcohol Use Standard Drinks/Week Comments Not Currently 0 (1 standard drink = 0.6 oz pur e alcohol) [facility] Utilities Answer Date Recorded In the past 12 months has e [employer], gas, oil, or water [email or web address] threatened to shut off services in your [...] on file documented as of this encounter Functional Status * Audit-C Score Answer Date of Assessment Author 0 09/30/2024 9:47 AM Shanika Pizarro RN * Question Answer Date of Assessment Author Q1: How often do you have a drink containing alcohol? Never 09/30/2024 9:47 AM Kristine Pizarro RN Q2: How many drinks containing alcohol do you have on a typical day when you are drinking? Patient does not drink 09/30/2024 9:47 AM Kristine Pizarro RN Q3: How often do you have six or more drinks on one occasion? Never 09/30/2024 9:47 AM Kristine Pizarro RN * Question Answer Date of Assessment Author Functional Status Independent 09/30/2024 9:49 AM Kristine Pizarro RN documented as of this encounter Plan of Treatment Not on file documented as of this encounter Goals Goal Patient Goal Type Associated Problems Recent Progress Patient-Stated? Author Return home General Yes Nadya Pickens, RN Note: Evaluation of progress towards goal: Plan to return home. documented as of this encounter Results * NM hepatobiliary system imaging with pharmacologic agent (09/29/2024 11:30 AM EDT) us Scanning Provider External IMG NM ORDERABLES Fin al Result * CT angiogram abdomen and pelvis (09/28/2024 3:15 PM EDT) us Scanning Provider External IMG CT ORDERABLES Fin al Result * CT angiogram chest (09/28/2024 3:10 PM EDT) us Scanning Provider External IMG CT ORDERABLES Fin al Result documented in this encounter Visit Diagnoses Diagnosis Pain- Primary Generalized pain documented in this encounter Additional Health Concerns Assessment Noted Time PHQ-9 Depression Total Score: 0 10/01/19 25 9:48 AM EDT documented as of this encounter
--- OUTSIDE RECORDS SUMMARY | 2024-11-21 16:02 | XMS_ITS | Encounter Summary ---
Author Organization [employer] Address [id number] [address] [place] [address] Care Team Providers Care Fisher Hand Line Name Role Phone Unavailable Primary Care Provider Unavailabl e Reason for Visit * Reason Onset Date Comments Transfer 09/29/2024 Encounter Details Date Type Department Care Team (Late st Contact Info) Description 09/29/2024 Telephone [facility] [address] [place] [phone] Candida Quiros Transfer Social History Tobacco Use Types Packs/Day Years Used Date Smoking Tobacco: Never Assessed [facility] Utilities Answer Date Recorded In [...] to get more. Never True 09/30/2024 Comments Unknown Sex and Gender Information Value [...] Pizarro RN documented as of this encounter Miscellaneous Notes * Telephone Encounter - Candida Quiros - 09/29/2024 8:45 AM EDT Contract: ELIO Andrews is calling for a Pt at [facility] with Lauren Fuchs and are requesting a transfer. Call [phone] * Telephone Encounter - Candida Quiros - 09/29/2024 8:45 AM EDT Secure chat sent to Melquiades Smith MD documented in this encounter Plan of Treatment Not on file documented as of this encounter Visit Diagnoses Not on filedocumented in this encounter
--- OUTSIDE RECORDS SUMMARY | 2024-11-21 16:02 | XMS_ITS | Encounter Summary ---
Author Organization [facility] Address [address] [place] [address] Care Team Providers Care Lumber Buyer Name Role Phone Magnus Shay MD Primary Care Provider [phone]- [phone] Encounter Details Date Type Department Care Team (Late st Contact Info) Description 02/17/2024 Orders Only Magnus Shay MD [address] [place] [address] [place] [phone] Unknown, Provider, PA Social History Tobacco Use [...] How often do you attend chur or synagogue services? 1 to 4 times per year 03/18/2022 Do you belong to any clubs o r organizations such as latter-day groups, unions, fraternal or athletic groups, or [...] Date Recorded PHQ-9 Total Score 0 12/06/2023 [facility] - Occupational [...] slept in a halfway (including now)? No 10/01/2023 Food Insecurity Answer [...] PM EDT Office Visit Magnus Shay MD [address] [place] [address] [place] [address] Magnus Shay MD [address] [facility], [place] [address] 2 month gc 12/19/2024 2:15 PM EDT Office Visit [facility] Part of [address] [place] [address] Destinee Coughlin, WM - [address] [place] [address] yearly-last PAP 12/15/2022-Medicare 02/06/2025 2:00 PM EDT Office Visit [facility] Part of [facility] [address] [facility] [address] [place] [address] Sandra Alvares, INTEGRATED MARKETING INTERN - WHITEPRINTING MACHINE OPERATOR [address] [facility] [address] [place] [address] 3M interstim check. remind patient to charge 04/11/2025 9:50 AM EST Office Visit Magnus Shay MD [address] [place] [phone] Magnus Shay MD [address] [facility] [place] [address] maw documented as of this encounter Procedures Procedure Name Priority Date/Time Associated Diagnosis Comments MAMMOGRAPHY Routine 02/15/2024 1:54 PM EDT documented in this encounter Results * MAMMOGRAPHY (02/15/2024 1:54 PM EDT) Anatomical Region Laterality Modality Other us Provider Unknown PA HEALTH MAINTENANCE Final Res ult documented in this encounter Visit Diagnoses Not on filedocumented in this encounter Additional Health Concerns Assessment Noted Time A fall risk assessment has been complete d for the patient 12/06/2023 9:27 AM EDT A Body Mass Index follow-up plan has been documented for the patient 11/18/2021 4:24 PM EDT documented as of this encounter Care Teams Lumber Buyer Relationship Specialty Start Date End Date Magnus Shay MD [address] [place] [address] [place] [address] PCP - General Internal Medicine 07/20/14 documented as of this encounter
--- OUTSIDE RECORDS SUMMARY | 2024-11-21 16:02 | XMS_ITS | Clinical Summary ---
Author Organization Appinions s tem Address [id number] [address] [place] [address] Care Team Providers Care Pack Room Operator Name Role Phone Unavailable Primary Care Provider Unavailabl e Allergies Active Allergy Reactions Criticality Noted Date Comments Cyclobenzaprine 09/30/2024 Morphine 09/30/2024 Nickel 09/30/2024 Penicillins 09/30/2024 Sulfites 09/30/2024 Medications ubidecarenone (coenzyme Q10) 60 mg capsule Take 1 tablet by mouth in the morning. Active acetaminophen (TYLENOL EXTRA STRENGTH) 500 mg tablet Take 2 tablets (1,000 mg total) by mouth every 6 (six) hours as needed. 4 Active atorvastatin (LIPITOR) 20 mg tablet Take 1 tablet (20 mg total) by mouth in the morning. 4 Active calcium carbonate (OS-TIP) 600 mg elemental (1,500 mg) tablet Take 1 tablet (600 mg total) by mouth daily with breakfast. Active carboxymethylce llulose sodium (THERATEARS OPHT) Administer 2 drops to both eyes daily as needed. 4 Active carvediloL (COREG) 25 mg tablet Take 1 tablet (25 mg total) by mouth in the morning and 1 tablet (25 mg total) in the evening. Take with meals. 4 Active cetirizine (ZyrTEC) 10 mg tablet Take 1 tablet (10 mg total) by mouth in the morning. Active cholecalciferol 1,000 units tablet Take 1 tablet (1,000 Units total) by mouth in the morning and at bedtime. Active cycloSPORINE (RESTASIS) 0.05 % ophthalmic emulsion Administer 1 drop to both eyes in the morning and 1 drop before bedtime. 4 Active docosahexaenoic acid (EXPECTA LIPIL) 200 mg capsule Take 1 capsule (200 mg total) by mouth in the morning. 4 Active levothyroxine (SYNTHROID, LEVOTHROID) 100 MCG tablet Take 1 tablet (100 mcg total) by mouth in the morning. 4 Active triamcinolone (NASACORT) 55 mcg nasal inhaler Administer 1 spray into each nostril in the morning. Active ursodioL (NATHEN FORTE) 500 mg tablet Take 1 tablet (500 mg total) by mouth in the morning and 1 tablet (500 mg total) before bedtime. Active ferrous sulfate 325 (65 FE) MG tablet Take 1 tablet (325 mg total) by mouth daily with breakfast for 30 days. 30 tablet 5 11/04/19 25 lactulose (CHRONULAC) 10 gram/15 mL solution Take 30 mL (20 g total) by mouth daily as needed (For constipation) for up to 30 days. 237 mL 5 11/03/19 25 pantoprazole (PROTONIX) 40 mg EC tablet Take 1 tablet (40 mg total) by mouth in the morning and at bedtime for 30 days. 60 tablet 5 11/03/19 25 SITagliptin phosphate (JANUVIA) 25 mg tablet Take 1 tablet (25 mg total) by mouth in the morning for 30 days. 30 tablet 5 11/03/19 25 Active Problems Problem Noted Date Diagnosed Date GI bleed 09/29/2024 Encounters Date Type Department Care Team Description 5 Telephone [facility]at[facility] Pancreatic & Endocrine Surgery [address] [place] [phone] Anjelica Holland MD 5 Documentation [facility] - GEN 9 ICU [address] [place] [phone] Joel Carroll RN 5 2:37 PM EDT Anesthesia Event [facility] - Endoscopy [address] [place] [phone] Steven Riddle MD 5 1:15 PM EDT - 5 1:45 PM EDT Surgery [facility] - Endoscopy [address] [place] [phone] Christina Noland, ESOPHAGOGASTRODUODENOSCOPY DIAGNOSTIC [44748 (CPT )] 5 Travel 5 Orders Only [facility] [employer] [facility] [place] [phone] Transcribe, Orders Support User Pain (Primary Dx) 5 7:35 PM EDT - 5 3:00 PM EDT Hospital Encounter [facility] - GEN 9 ICU [address] [place] [phone] Lisbet Tolbert MD Kukreja, Sandeep S, MD Gastrointestinal hemorrhage with melena (Primary Dx); Gastrointestinal hemorrhage, unspecified gastrointestinal hemorrhage type; Acute blood loss anemia; Iron deficiency anemia, unspecified iron deficiency anemia type; Right upper quadrant abdominal pain Discharge Disposition: Home 5 11:30 AM EDT Ancillary Procedure [facility] [place] [phone] Pain 5 Telephone [facility] [address] [place] [phone] Candida Quiros Transfer 5 3:15 PM EDT Ancillary Procedure [facility] [place] [address] Pain 5 3:10 PM EDT Ancillary Procedure [facility] [address] [place] [phone] Pain from Last 3 Months Immunizations Immunization Administration Dates Next Due Covid-19, Mrna, Lnp-s, Pf,nabil-sucrose,30 Mcg/0.3ml Seasonal 02/23/2023 H1N1 Inj Preservative Free 03/25/2009 Influenza High Dose Preserva tive Free IM 02/11/2024,02/14/2019,02/28/2018,02/19,03/13/2015 Influenza Split Preservative Free ID 03/24/2015 Influenza Vaccine, Quadrival ent, Adjuvanted 02/02/2023 Influenza, High-dose, Quadrivalent 02/01/2022,,01/25/2020 Influenza, Injectable, quadr ivalent (PF) 03/04/2016 Influenza, Trivalent, Adjuvanted 02/28/2016 Influenza, Unspecified 03/01/2017,03/02/2016,10/2013 Pneumococcal Conjugate 13-Valent 03/04/2016,12/0 01/2015 Pneumococcal Polysaccharide 02/28/2018, 1 RSV, bivalent, protein subun it RSVpreF, diluent reconstituted, 0.5 mL, PF 02/23/2023 Zoster Live 10/04/2013,02/26/2012 Social History Tobacco Use Types Packs/Day Years Used Date Smoking Tobacco: Former Cigarettes Smokeless Tobacco: Never Tobacco Cessation:Counseling Given: Not Answered Alcohol Use Standard Drinks/Week Comments Not Currently 0 (1 standard drink = 0.6 oz pur e alcohol) [facility] [employer] Answer Date Recorded In the past 12 months has [employer] oil, or water [employer] threatened to shut off services in your [...] on file Sexual Orientation Not on file Last Filed Vital Signs Vital Sign Reading Time Taken Comments Blood Pressure 164/78 10/03/2024 11:35 AM EDT Pulse 74 10/03/2024 12:00 PM EDT Temperature 37.1 C (98.8 F) 10/03/2024 12:00 PM EDT Respiratory Rate 21 10/03/2024 12:00 PM EDT Oxygen Saturation 100% 10/02/2024 3:15 PM EDT Inhaled Oxygen Concentration - - Weight 72.6 kg (160 lb) 10/03/2024 6:00 AM EDT Height 154.9 cm (5' 1 ) 09/30/2024 12:00 AM EDT Body Mass Index 30.23 09/30/2024 12:00 AM EDT Plan of Treatment Health Maintenance Due Date Last Done Comments DTaP,Tdap and Td Vaccines (1 - Tdap) 1968 Zoster (Shingles) Vaccine (2 of 3) 11/29/2013 10/04/2013, 02/26/2012 Fall Risk Screening 2014 COVID-19 Vaccine ( season) 2024 02/25/2024, 08/13/2023, 02/23/2023, Additional history exists Influenza Vaccine 01/22/2025 02/11/2024, , 02/01/2022, Additional history exists Depression Screening 09/30/2025 09/30/2024 Tobacco Screening 10/02/2025 10/02/2024 Goals Goal Patient Goal Type Associated Problems Recent Progress Patient-Stated? Author Return home General Yes Nadya Pickens, RN Note: Evaluation of progress towards goal: Plan to return home. Medical Devices Not on file Procedures Procedure Name Priority Date/Time Associated Diagnosis Comments BEDSIDE GLUCOSE Routine 10/03/2024 11:44 AM EDT BEDSIDE GLUCOSE Routine 10/03/2024 8:27 AM EDT BASIC METABOLIC PANEL Routine 10/03/2024 3:45 AM EDT CBC WITH AUTO DIFFERENTIAL Routine 10/03 3:45 AM EDT BEDSIDE GLUCOSE Routine 10/02/2024 10:36 PM EDT NV ESOPHAGOGASTRODUODENOSCOP Y TRANSORAL DIAGNOSTIC 10/02/2024 2:35 PM EDT Gastrointestina l hemorrhage with melena EGD 10/02/2024 1:24 PM EDT PROVATION EGD Routine 10/02/2024 1:05 PM EDT IONIZED MAGNESIUM Routine 10/02/2024 9:27 AM EDT THYROID PROFILE INCLUDES TSH FT4 Add-On 10/02/2024 2:27 AM EDT FOLATE Add-On 10/02/2024 2:27 AM EDT VITAMIN B12 Add-On 10/02/2024 2:27 AM EDT IRON AND TIBC Add-On 10/02/2024 2:27 AM EDT HEMOGLOBIN A1C Add-On 10/02/2024 2:27 AM EDT MAGNESIUM Routine 10/02/2024 2:27 AM EDT COMPREHENSIVE METABOLIC PANEL Routine 2:27 AM EDT CBC WITH AUTO DIFFERENTIAL Routine 10/02 2:27 AM EDT HEMOGLOBIN AND HEMATOCRIT, BLOOD Routine 10/01/2024 5:53 PM EDT HEMOGLOBIN AND HEMATOCRIT, BLOOD Routine 10/01/2024 10:56 AM EDT IONIZED MAGNESIUM Routine 10/01/2024 10:56 AM EDT MAGNESIUM Routine 10/01/2024 3:09 AM EDT COMPREHENSIVE METABOLIC PANEL Routine 3:09 AM EDT CBC WITH AUTO DIFFERENTIAL Routine 10/01 3:09 AM EDT HEMOGLOBIN AND HEMATOCRIT, BLOOD Routine 09/30/2024 8:55 PM EDT HEMOGLOBIN AND HEMATOCRIT, BLOOD Routine 09/30/2024 5:13 PM EDT MAGNESIUM Routine 09/30/2024 9:49 AM EDT COMPREHENSIVE METABOLIC PANEL Routine 9:49 AM EDT CBC WITH AUTO DIFFERENTIAL Routine 09/30 9:49 AM EDT HEMOGLOBIN AND HEMATOCRIT, BLOOD Routine 09/30/2024 3:23 AM EDT IONIZED CALCIUM Routine 09/30/2024 3:23 AM EDT REPEATED ABORH Routine 09/29/2024 11:15 PM EDT PROCALCITONIN Routine 09/29/2024 11:15 PM EDT TYPE AND SCREEN Routine 09/29/2024 8:32 PM EDT APTT Routine 09/29/2024 8:32 PM EDT PROTIME & INR Routine 09/29/2024 8:32 PM EDT LACTATE W/ REFLEX Routine 09/29/2024 8:32 PM EDT CBC WITH AUTO DIFFERENTIAL Routine 09/29 8:32 PM EDT COMPREHENSIVE METABOLIC PANEL Routine 8:32 PM EDT BEDSIDE GLUCOSE Routine 09/29/2024 7:42 PM EDT NM HEPATOBILIARY SYS IMAGING W PHARMACOLOGIC AGENT Routine 09/29/2024 11:[address] CTA ABD AND PELVIS Routine 09/28/2024 3:[address] CTA CHEST Routine 09/28/2024 3:10 PM EDT Pain from Last 3 Months Results * (ABNORMAL) Bedside Glucose *Place/Obtain serum glucose if >500 per glucometer. (10/03/2024 11:44AM EDT) Only the most recent of4 resultswithin the time period is included. Bedside Glucose (POC) 203(H) 65 - 99 mg/dL 10/03/2024 11:45 AM EDT [facility] arterial/capilla ry 10/03/2024 11:44 AM EDT 10/03/2024 11:45 AM EDT us Kev Melendez MD POINT OF CARE TEST ORDERABL ES Final Result [facility] [address] [place] [address], [place] * (ABNORMAL) CBC auto differential (10/03/2024 3:45 AM EDT) Only the most recent of5 resultswithin the time period is included. WBC 3.4(L) 4 - 11 x10E9/L 10/03/2024 4:21 AM [facility] RBC Count 3.06(L) 3.8 - 5.2 X10E12/L 10/03/2024 4:21 AM T [facility] Hemoglobin 9.1(L) 11.7 - 15.5 g/dL 10/03/2024 4:21 AM T [facility] Hematocrit 26.8(L) 35 - 47 % 10/03/2024 4:21 AM [facility] MCV 88 80 - 100 fL 10/03/2024 4:21 AM [facility] MCH 29.7 27 - 34 pg 10/03/2024 4:21 AM [facility] MCHC 33.9 32 - 36 g/dL 10/03/2024 4:21 AM [facility] RDW 15.0 11.5 - 15 % 10/03/2024 4:21 AM T [facility] Platelet Count 99(L) 150 - 450 X10E9/L 10/03/2024 4:21 AM [facility] MPV 8.9 7 - 12 fL 10/03/2024 4:21 AM T [facility] Neutrophils % 60.0 % 10/03/2024 4:21 AM EDT [facility] Lymphocytes % 23.3 % 10/03/2024 4:[facility] Monocytes % 11.2 % 10/03/2024 4:21 AM T [facility] Eosinophils % 4.3 % 10/03/2024 4:21 AM T [facility] Basophils % 1.2 % 10/03/2024 4:21 AM [facility] Neutrophils Absolute (A) 2.1 1.5 - 6.6 10*3/uL 10/03/2024 4:21 AM T [facility] Lymphocytes Absolute 0.8(L) 1.0 - 3.5 10*3/uL 10/03/2024 4:21 AM EDT [facility] Monocytes Absolute 0.4 0.0 - 0.9 10*3/uL 10/03/2024 4:21 AM EDT [facility] Eosinophils Absolute 0.1 0.0 - 0.4 10*3/uL 10/03/2024 4:21 AM EDT [facility] Basophils Absolute 0.0 0.0 - 0.2 10*3/uL 10/03/2024 4:21 AM EDT [facility] Differential Type AUTOMATED DIFFERENTIAL 10/03/2024 4:21 AM EDT [facility] Blood 10/03/2024 3:45 AM EDT 10/03/2024 3:59 AM EDT Kev Melendez MD LAB BLOOD ORDERABLES Final Result [facility] [address] [place] [address], * (ABNORMAL) Basic Metabolic Panel (10/03/2024 3:45 AM EDT) SODIUM 139 134 - 146 mmol/L 10/03/2024 4:27 AM EDT [facility] POTASSIUM 4.2 3.5 - 5.0 mmol/L 10/03/2024 4:27 AM EDT [facility] CHLORIDE 111(H) 98 - 109 mmol/L 10/03/2024 4:27 AM EDT [facility] CARBON DIOXIDE 22 22 - 32 mmol/L 10/03/2024 4:27 AM EDT [facility] ANION GAP 6 5 - 15 mmol/L 10/03/2024 4:27 AM EDT [facility] BLOOD UREA NITROGEN 22 5 - 27 mg/dL 10/03/2024 4:27 AM EDT [facility] CREATININE 0.90 0.40 - 1.00 mg/dL 10/03/2024 4:27 AM EDT [facility] Comment:METHOD TRACEABLE TO IDMS STANDARD GLUCOSE 165(H) 65 - 99 mg/dL 10/03/2024 4:27 AM EDT [facility] CALCIUM 8.2(L) 8.5 - 10.5 mg/dL 10/03/2024 4:27 AM EDT [facility] EGFR Non-Race Dependent 67 >=60 ml/min/1.7 3sq.m 10/03/2024 4:27 AM EDT [facility] Comment: Reported eGFR is based on the CKD-EPI 2020 equation that does not use a race coefficient. Blood 10/03/2024 3:45 AM EDT 10/03/2024 3:59 AM EDT Kev Melendez MD LAB BLOOD ORDERABLES Final Result [facility] [address] [place] [address], * EGD (10/02/2024 1:24 PM EDT) 10/02/2024 1:24 PM EDT Narrative PM CARDIOVASCULAR - 10/02/2024 2:58 PM EDT [facility] Patient Name: Ashlee Banerjee Procedure Date: 10/02/2024 1:24 PM CSN: [id number] Date of : 1950 Admit Type: Inpatient Age: 73 Room: [place] [address] Gender: Female Note Status: Finalized Attending MD: Christina Noland , , Procedure: Upper GI endoscopy Indications: Melena Providers: Christina Noland Referring MD: Teresa Hilton Requestgenia Provider: Medicines: Monitored Anesthesia Care Complications: No immediate complications. Procedure: After obtaining informed consent, the endoscope was passed under direct vision. Throughout the procedure, the patient's blood pressure, pulse, and oxygen saturations were monitored continuously. The Endoscope was introduced through the mouth, and advanced to the second part of duodenum. The upper GI endoscopy was accomplished without difficulty. The patient tolerated the procedure well. Findings: The examined esophagus was normal. The Z-line was regular and was found 40 cm from the incisors. Moderate portal hypertensive gastropathy was found in the entire examined stomach. A few dispersed small erosions with no bleeding and no stigmata of recent bleeding were found in the gastric antrum. The ampulla, duodenal bulb, first portion of the duodenum and second portion of the duodenum were normal. Estimated Blood Loss: Estimated blood loss: none. Impression: - Normal esophagus. - Z-line regular, 40 cm from the incisors. - Moderate Portal hypertensive gastropathy. - Erosive gastropathy with no bleeding and no stigmata of recent bleeding. - Normal ampulla, duodenal bulb, first portion of the duodenum and second portion of the duodenum. - No esophageal or gastric varices. No evidence of significant GAVE. Most likely source of GI bleed with hemodynamic instability at outside hospital was most likely hemobilia from liver biopsy. - No specimens collected. Recommendation: - Return patient to hospital day for ongoing care. - Resume regular diet. - If melena recurs, can consider colonoscopy if she has not had a recent colonoscopy. - Follow-up with primary liberal arts teacher at [facility] for further management of underlying liver disease. Procedure Code(s): --- Professional --- 32006, Esophagogastroduodenoscopy, flexible, transoral; diagnostic, including collection of specimen(s) by brushing or washing, when performed (separate procedure) Diagnosis Code(s): --- Professional --- K76.6, Portal hypertension K31.89, Other diseases of stomach and duodenum K92.1, Melena (includes Hematochezia) CPT copyright 2022 [employer]. All rights reserved. The codes documented in this report are preliminary and upon map editor review may be revised to meet current compliance requirements. Thomas Ridley, 10/02/2024 2:57:29 PM This report has been signed electronically. Number of Addenda: 0 Note Initiated On: 10/02/2024 1:24 PM Procedure Note Christina Noland DO - 10/02/2024 [facility] Patient Name: Lincolnton Straziuso Procedure Date: 10/02/2024 1:24 PM CSN: [id number] Date of : 1950 Admit Type: Inpatient Age: 73 Room: [place] [address] Gender: Female Note Status: Finalized Attending MD: Christina Noland , , Procedure: Upper GI endoscopy Indications: Melena Providers: Christina Noland Referring MD: Teresa Hilton Requesting Provider: Medicines: Monitored Anesthesia Care Complications: No immediate complications. Procedure: After obtaining informed consent, theendoscope was passed under direct vision. Throughoutthe procedure, the patient's blood pressure,pulse, and oxygen saturations were monitored continuously. The Endoscope was introduced through the mouth, and advanced to thesecond part of duodenum. The upper GI endoscopy was accomplished without difficulty. The patient tolerated the procedure well. Findings: The examined esophagus was normal. The Z-line was regular and was found 40 cm from the incisors. Moderate portal hypertensive gastropathy was found in the entire examined stomach. A few dispersed small erosions with no bleeding and no stigmata of recent bleeding were found in the gastric antrum. The ampulla, duodenal bulb, first portion of the duodenum and second portion of the duodenum were normal. Estimated Blood Loss: Estimated blood loss: none. Impression: - Normal esophagus. - Z-line regular, 40 cm from the incisors. - Moderate Portal hypertensivegastropathy. - Erosive gastropathy with no bleeding andno stigmata of recent bleeding. - Normal ampulla, duodenal bulb, firstportion of the duodenum and second portion of the duodenum. - No esophageal or gastric varices. Noevidence of significant GAVE. [facility] from[facility]. - No specimens collected. Recommendation: - Return patient to hospital day forongoing care. - Resume regular diet. - If melena recurs, can consider colonoscopyif she has not had a recent colonoscopy. - [facility] disease. Procedure Code(s): --- Professional --- 92853, Esophagogastroduodenoscopy, flexible, transoral; diagnostic, including collectionof specimen(s) by brushing or washing, when performed (separate procedure) Diagnosis Code(s): --- Professional --- K76.6, Portal hypertension K31.89, Other diseases of stomach andduodenum K92.1, Melena (includes Hematochezia) CPT copyright 2022 [employer]. All rights reserved. The codes documented in this report are preliminary and upon map editor reviewmay be revised to meet current compliance requirements. Thomas Ridley, 10/02/2024 2:57:29 PM This report has been signed electronically. Number of Addenda: 0 Note Initiated On: 10/02/2024 1:24 PM Christina Noland DO GI PROCEDURE ORDERABLES Final Result PM CARDIOVASCULAR * EGD Report (10/02/2024 1:05 PM EDT) Narrative SYSTEMGENERATED, DOCUMENTATION - 10/02/2024 1:05 PM EDT This order has been auto-finalized for image and report archival in PACs. *For full report details, please reach out to your physician. This image is visible to you in MyChart.* Anne-Marie Suggs MD IMG OR IMG ORDERABLES Final R esult * Ionized magnesium (10/02/2024 9:27 AM EDT) Only the most recent of2 resultswithin the time period is included. Pathologist [facility] [place] IONIZED MAGNESIUM 0.63 0.45 - 0.74 mmol/L 10/02/2024 9:49 AM EDT [facility] Blood Venous blood / Unknown 10/02/2024 9:27 AM EDT 10/02/2024 9:41 AM EDT Tj Amin ESTATE CONSERVATOR-[employer] INSPECTOR LAB BLOOD ORDERABLES Fi nal Result [facility] [address] [place] [address], [place] [phone] * (ABNORMAL) Thyroid profile includes TSH FT4 (10/02/2024 2:27 AM EDT) [facility] FREE T4 0.94 0.61 - 1.60 ng/dL 10/02/2024 6:13 PM EDT [facility] TSH 5.65(H) 0.49 - 4.67 uIU/mL 10/02/2024 6:13 PM EDT [facility] Blood Venous blood / Unknown Central Line / Unknown 10/02/2024 2:27 AM EDT 10/02/2024 2:44 AM EDT us Kev Melendez MD LAB BLOOD ORDERABLES Final Result [facility] [address] [place] [address], * (ABNORMAL) Iron and TIBC (10/02/2024 2:27 AM EDT) Pathologist [facility] [place] IRON 28(L) 50 - 170 ug/dL 10/02/2024 5:40 PM EDT [facility] TRANSFERRIN 234 168 - 336 mg/dL 10/02/2024 5:40 PM EDT [facility] IRON BINDING 328 250 - 425 ug/dL 10/02/2024 5:40 PM EDT [facility] IRON SATURATION 9(L) 15 - 50 % SATURATION 10/02/2024 5:40 PM EDT [facility] Blood Venous blood / Unknown Central Line / Unknown 10/02/2024 2:27 AM EDT 10/02/2024 2:44 AM EDT us Kev Melendez MD LAB BLOOD ORDERABLES Final Result [facility] [address] [place] [address], * Magnesium (10/02/2024 2:27 AM EDT) Only the most recent of3 resultswithin the time period is included. MAGNESIUM 1.8 1.8 - 2.6 mg/dL 10/02/2024 3:13 AM EDT [facility] Blood Venous blood / Unknown Central Line / Unknown 10/02/2024 2:27 AM EDT 10/02/2024 2:44 AM EDT Tammy Sung PA-C LAB BLOOD ORDERABLES Final Result [facility] [address] [place] [address], [place] [phone] * (ABNORMAL) Hemoglobin A1c (10/02/2024 2:27 AM EDT) HEMOGLOBIN A1C 6.3(H) 4.4 - 5.6 % 10/02/2024 10:13 AM EDT [facility] Comment: ADA Guidelines Result HgbA1c Normal : less than 5.7 % Prediabetes : 5.7 % to 6.4 % Diabetes : > 6.4 % Use with caution in patients with abnormal hemoglobin variants as the half-life of red blood cells and in vivo glycation rates are affected. EST. AVERAGE GLUCOSE 134 mg/dL 10/02/2024 10:13 AM EDT [facility] Blood Venous blood / Unknown Central Line / Unknown 10/02/2024 2:27 AM EDT 10/02/2024 2:44 AM EDT Kev Melendez MD LAB BLOOD ORDERABLES Final Result [facility] [address] [place] [address], [place] [phone] * Folate (10/02/2024 2:27 AM EDT) FOLIC ACID 18.6 >5.8 ng/mL 10/02/2024 6:22 PM EDT [facility] Blood Venous blood / Unknown Central Line / Unknown 10/02/2024 2:27 AM EDT 10/02/2024 2:44 AM EDT us Kev Melendez MD LAB BLOOD ORDERABLES Final Result [facility] [address] [place] [address], * (ABNORMAL) Vitamin B12 (10/02/2024 2:27 AM EDT) VITAMIN B12 >1,500(H) 180 - 914 pg/mL 10/02/2024 6:22 PM EDT [facility] Blood Venous blood / Unknown Central Line / Unknown 10/02/2024 2:27 AM EDT 10/02/2024 2:44 AM EDT us Kev Melendez MD LAB BLOOD ORDERABLES Final Result [facility] [address] [place] [address], * (ABNORMAL) Comprehensive metabolic panel (10/02/2024 2:27 AM EDT) Only the most recent of4 resultswithin the time period is included. SODIUM 141 134 - 146 mmol/L 10/02/2024 3:13 AM EDT [facility] POTASSIUM 4.2 3.5 - 5.0 mmol/L 10/02/2024 3:13 AM EDT [facility] CHLORIDE 113(H) 98 - 109 mmol/L 10/02/2024 3:13 AM EDT [facility] CARBON DIOXIDE 20(L) 22 - 32 mmol/L 10/02/2024 3:13 AM EDT [facility] ANION GAP 8 5 - 15 mmol/L 10/02/2024 3:13 AM EDT [facility] BLOOD UREA NITROGEN 28(H) 5 - 27 mg/dL 10/02/2024 3:13 AM EDT [facility] CREATININE 0.97 0.40 - 1.00 mg/dL 10/02/2024 3:13 AM EDT [facility] Comment:METHOD TRACEABLE TO IDWI STANDARD GLUCOSE 215(H) 65 - 99 mg/dL 10/02/2024 3:13 AM EDT [facility] CALCIUM 8.3(L) 8.5 - 10.5 mg/dL 10/02/2024 3:13 AM EDT [facility] TOTAL PROTEIN 5.4(L) 6.0 - 8.0 g/dL 10/02/2024 3:13 AM EDT [facility] ALBUMIN 2.9(L) 3.2 - 5.3 g/dL 10/02/2024 3:13 AM EDT [facility] ALKALINE PHOSPHATASE 119 39 - 130 U/L 10/02/2024 3:13 AM EDT [facility] AST 30 <=41 U/L 10/02/2024 3:13 AM EDT [facility] ALT 28 <=31 U/L 10/02/2024 3:13 AM EDT [facility] BILIRUBIN,TOTAL 0.6 0.3 - 1.2 mg/dL 10/02/2024 3:13 AM EDT [facility] EGFR Non-Race Dependent 61 >=60 ml/min/1.7 3sq.m 10/02/2024 3:13 AM EDT [facility] Comment: Reported eGFR is based on the CKD-EPI 2020 equation that does not use a race coefficient. Blood Venous blood / Unknown Central Line / Unknown 10/02/2024 2:27 AM EDT 10/02/2024 2:44 AM EDT us Tammy Sung PA-C LAB BLOOD ORDERABLES Final Result [facility] [address] [place] [address], * (ABNORMAL) Hemoglobin and hematocrit, blood (10/01/2024 5:53 PM EDT) Only the most recent of5 resultswithin the time period is included. Hemoglobin 9.4(L) 11.7 - 15.5 g/dL 10/01/2024 6:24 PM EDT [facility] Hematocrit 27.9(L) 35 - 47 % 10/01/2024 6:24 PM EDT [facility] Blood Venous blood / Unknown 10/01/2024 5:53 PM EDT 10/01/2024 6:06 PM EDT Tammy Sung PA-C LAB BLOOD ORDERABLES Final Result [facility] [address] [place] [address], * Ionized calcium (09/30/2024 3:23 AM EDT) IONIZED CALCIUM - ICAN 4.6 4.5 - 5.3 mg/dL 09/30/2024 3:57 AM EDT [facility] Blood Venous blood / Unknown 09/30/2024 3:23 AM EDT 09/30/2024 3:46 AM EDT Tj Amin [employer] LAB BLOOD ORDERABLES Fi nal Result [facility] [address] [place] [address], [place] [phone] * (ABNORMAL) Procalcitonin (09/29/2024 11:15 PM EDT) PROCALCITONIN 1.48(H) <0.05 ng/mL 09/30/2024 12:28 AM EDT [facility] Blood Venous blood / Unknown Central Line / Unknown 09/29/2024 11:15 PM EDT 09/29/2024 11:34 PM EDT Narrative [facility] - 09/30/2024 12:28 AM EDT <0.50 ng/mL - Low risk of severe sepsis and/or septic shock. <2.00 ng/mL - Recommend retesting within 6-24 hours. >2.00 ng/mL - High risk of sepsis and/or septic shock. us Tj Amin [employer]STATE CON[employer]ATOR[employer] INS[employer] LAB BLOOD ORDERABLES Fi nal Result [facility] [address] [place] [address], * ABO Rh Repeat (09/29/2024 11:15 PM EDT) ABO A 09/30/2024 12:50 AM EDT [facility] RH Positive 09/30/2024 12:50 AM EDT [facility] Blood Venous blood / Unknown Central Line / Unknown 09/29/2024 11:15 PM EDT 09/29/2024 11:29 PM EDT us Lisbet Tolbert MD BLOOD BANK TEST ORDERABLES F inal Result Performing Organization Address City/[facility]/ZIP Co de Phone Number [facility] - [place] [address] [place] [address], [facility] [address] [place] [address], * Lactate w/ Reflex (09/29/2024 8:32 PM EDT) LACTATE W/REFLEX 0.7 0.4 - 2.0 mmol/L 09/29/2024 9:11 PM EDT [facility] Blood Venous blood / Unknown 09/29/2024 8:32 PM EDT 09/29/2024 8:45 PM EDT Narrative [facility] - 09/29/2024 9:11 PM EDT Result did not trigger repeat Lactate, re-order if needed. Tj Amin [facility] LAB BLOOD ORDERABLES Fi nal Result [facility] [address] [place] [address], * APTT (09/29/2024 8:32 PM EDT) APTT 31 26 - 37 sec 09/29/2024 8:59 PM EDT [facility] Blood Venous blood / Unknown 09/29/2024 8:32 PM EDT 09/29/2024 8:45 PM EDT Tj Amin [facility] LAB BLOOD ORDERABLES Fi nal Result Performing Organization Address City/[facility]/ZIP Co de Phone Number [facility] [address] [place] [address], * (ABNORMAL) Protime & INR (09/29/2024 8:32 PM EDT) PROTIME 15.9(H) 9.8 - 13.2 sec 09/29/2024 8:59 PM EDT [facility] INR 1.4(H) 0.9 - 1.2 09/29/2024 8:59 PM EDT [facility] Blood Venous blood / Unknown 09/29/2024 8:32 PM EDT 09/29/2024 8:45 PM EDT Tj Amin [facility] LAB BLOOD ORDERABLES Fi nal Result [facility] [address] [place] [address], * Type and screen(includes indirect jesenia) (09/29/2024 8:32 PM EDT) ABO A 09/29/2024 9:32 PM EDT [facility] RH Positive 09/29/2024 9:32 PM EDT [facility] Antibody Screen Negative 09/29/2024 9:32 PM EDT [facility] Blood Venous blood / Unknown 09/29/2024 8:32 PM EDT 09/29/2024 8:55 PM EDT Tj Amin [employer] CON[employer]ATOR[employer] INS[employer] BLOOD BANK TEST ORDERAB LES Edited Result - Final [facility] - [address] [place] [address], [facility] [address] [place] [address], * NM hepatobiliary system imaging with pharmacologic agent (09/29/2024 11:30 AM EDT) us Scanning Provider External IMG NM ORDERABLES Fin al Result * CT angiogram abdomen and pelvis (09/28/2024 3:15 PM EDT) us Scanning Provider External IMG CT ORDERABLES Fin al Result * CT angiogram chest (09/28/2024 3:10 PM EDT) us Scanning Provider External IMG CT ORDERABLES Fin al Result from Last 3 Months Insurance MEDICARE [facility] Advance Directives * Full Code (Latest Code Status on File) Date Activated Date Inactivated Comments 09/29/2024 7:59 PM 10/03/2024 6:17 PM
[2024-11-21 16:14] LABS: Hematocrit 33.4 % (36.0-48.0); Hemoglobin 10.8 g/dL (12.0-16.0); Immature Granulocytes Abs Auto 0.14 10^3/uL (0.00-0.03); Immature Granulocytes Pct Auto 3.5 % (0.0-0.5); Lymphocytes Absolute Auto 1.0 10^3/uL (1.2-3.8); Mean Corpuscular HGB Conc 32.3 g/dL (29.9-35.2); Mean Corpuscular Hemoglobin 29.1 pg (26.7-34.0); Mean Corpuscular Volume 90.0 fL (81.0-99.0); Platelet Count 80 10^3/uL (150-450); Red Blood Count 3.71 10^6/uL (4.20-5.40); White Blood Count 4.0 10^3/uL (4.0-11.0)
== END 2024-11-21 16:00 | disposition home or self-care (01) ==
LOC: LAB 16:00
PROVIDERS: PCP Internal Medicine; Visit Provider Internal Medicine
DX: K92.1 Melena (principal)
CPT/HCPCS: 36415; 85025

== ENCOUNTER 2024-12-13 16:06 | Outpatient (OUT) | payer MEDICARE, SELFPAY ==
[2024-12-13 16:59] LABS: Anion Gap 13.1; Blood Urea Nitrogen 36.0 mg/dL (7.0-18.0); Calcium 9.2 mg/dL (8.5-10.1); Carbon Dioxide 26.1 mmol/L (21.0-32.0); Chloride 107 mmol/L (98-107); Estimated GFR (African America >60 (>=60 mL/min/1.73m^2); Estimated GFR (Non-African Ame 51 (>=60 mL/min/1.73m^2); Glucose 123 mg/dL (74-106); Potassium 5.2 mmol/L (3.5-5.1); Sodium 141 mmol/L (136-145)
== END 2024-12-13 16:07 | disposition home or self-care (01) ==
LOC: LAB 16:07
PROVIDERS: PCP Internal Medicine; Visit Provider Internal Medicine
DX: I10 Essential (primary) hypertension (principal)
CPT/HCPCS: 36415; 80048

== ENCOUNTER 2025-01-09 15:07 | Outpatient (OUT) | payer MEDICARE, SELFPAY ==
--- OUTSIDE RECORDS SUMMARY | 2025-01-09 16:25 | XMS_ITS | CCD ---
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 Teacher Name Role Phone Vladimir Greco Primary Care Physician Unavail able Vladimir Greco Unavailable Unavailable Cooper Eller Primary Care Provider [phone] Vladimir Greco Primary Care Physician Unavail able Vladimir Greco Primary Care Physician Unavail able Cooper Eller Primary Care Provider [phone] Vladimir Greco Primary Care Physician Unavail able Vladimir Greco Primary Care Physician Unavail able Vladimir Greco Primary Care Physician Unavail able Rafita FOSTER, Cooper Ambriz Primary Care Provider Cooper Eller MD Primary Care Provider Cooper Eller MD Primary Care Provider COOPER ELLER Primary Care Physician Unavailable Primary Care Provider UnavailDR COOPER Allen Attending Unavailable RAFITA, DR GAMBOA Consulting Unavailable RAFITA, DR GAMBOA Admitting Unavailable RAFITA, DR GAMBOA Primary Care Unavailable Wilver Hannah Consulting Unavailable SWATI DIALLO Admitting Unavailable SWATI DIALLO Attending Unavailable RAFITA, DR GAMBOA Primary Care Unavailable SWATI DIALLO Consulting Unavailable DR KELLY CISNEROS Admitting Unavailable CALLEJAS ., ANDREW Consulting Unavailable RAFITA, DR GAMBOA Primary Care Unavailable SANDRO Dueñas, DR KELLY Cardoza Attending Unavailable RAFITA, DR GAMBOA Consulting Unavailable RAFITA, DR GAMBOA Attending Unavailable RAFITA, DR GAMBOA Admitting Unavailable RAFITA, DR GAMBOA Primary Care Unavailable RAFITA, DR GAMBOA Referring Unavailable RAFITA, DR GAMBOA Primary Care Unavailable MISC, DR REYEZ Admitting Unavailable MISC, DR REYEZ Attending Unavailable MISC, DR REYEZ Consulting Unavailable SANDRO Dueñas, DR KELLY Cardoza Admitting Unavailable CALLEJAS ., [...] DR GAMBOA Primary Care Unavailable RAFITA, DR COOPER Kaye Unavailable TIAN ., DR KELLY Cardoza Consulting [...] DR GAMBOA Primary Care Unavailable Wilver Hannah Unavailable CALLEJAS ., ANDREW Attending Unavailable CALLEJAS ., ANDREW Consulting Unavailable Nikko Barbosa Consulting Unavailable MARCO ANTONIO, DR SCHULZ Admitting Unavailable MARCO ANTONIO, DR SCHULZ Attending Unavailable DR COOPER ELLER Primary Care Unavailable DR DESTINEE COUGHLIN Consulting Unavailable Geri Vergara MD Unavailable Geri Vergara Attending Unavailable Geri Vergara A Admitting Unavailable TIAN, KELLY S Referring Unavailable Florian Vergaraothy A Referring Unavailable MD Gerry Jerry Admitting Unavailable Gerry Jerry Attending Unavailable Geri Vergara A Admitting Unavailable Florian Vergaraothy A Referring Unavailable Geri Vergara Attending Unavailable Florian Vergaraothy A Admitting Unavailable Florian Vergaraothy A Referring Unavailable Geri Vergara Attending Unavailable Juvencio Janei Admitting Unavailable TIAN, KELLY S Referring Unavailable Janie Henning Attending Unavailable Aline SAND CLEANING MACHINE OPERATOR-SKID WORKER, Dee Unavailable Vladimir Jose Primary Care Physician Unava ilable Vladimir Jose Unavailable Unavailable Geri Vergara MD Unavailable Andrae Patino MD Unavailable Cooper Eller MD Primary Care Provider KEITH GABRIEL Attending Unavailable Elvis Adame Consulting Unavailable COOPER ELLER Primary Care Unavailable KEITH GABRIEL Admitting Unavailable COOPER ELLER Primary Care Unavailable KEITH GABRIEL Admitting Unavailable KEITH GABRIEL Attending Unavailable Cooper Eller MD Primary Care Provider Cooper Eller MD Primary Care Provider PROVIDER, UNKNOWN Attending Unavailable GERI VERGARA Referring Unavailable PROVIDER, UNKNOWN Admitting Unavailable PROVIDER, UNKNOWN Attending Unavailable GERI VERGARA Referring Unavailable PROVIDER, UNKNOWN Admitting Unavailable GERI VERGARA Attending Unavailable PROVIDER, UNKNOWN Admitting Unavailable PROVIDER, UNKNOWN Attending Unavailable PROVIDER, UNKNOWN Admitting Unavailable PROVIDER, UNKNOWN Attending Unavailable PROVIDER, UNKNOWN Admitting Unavailable GERI VERGARA Attending Unavailable PROVIDER, UNKNOWN Admitting Unavailable PROVIDER, UNKNOWN Attending Unavailable GERI VERGARA Referring Unavailable PROVIDER, UNKNOWN Admitting Unavailable Sukumar FOSTER, Andrae Bradley Attending Unavailable Rafita FOSTER, Cooper Kirby Primary Care UnavailAndrae Porter MD Attending Unavailable Rafita FOSTER, Cooper Kirby Primary Care UnavailAndrae Porter MD Consulting Unavailable Sukumar FOSTER, Andrae Bradley Attending Unavailable Rafita FOSTER, Cooper Pb H Primary Care Unavaila lydia Patino MD, Andrae Bradley Attending Unavailable Rafita FOSTER, Cooper Kirby Primary Care Unavaila ble RAFITA, COOPER Primary Care Unavailable LAKISHA CORDOBA Attending Unavailable COOPER ELLER Referring Unavailable RAFITA, COOPER Referring Unavailable RAFITA, COOPER Primary Care Unavailable LAKISHA CORDOBA Attending Unavailable RAFITA, COOPER Primary Care Unavailable LAKISHA CORDOBA Referring Unavailable MARVIN II, RYLIE Brown Attending Unavailabl e MARVIN II, RYLIE Brown Admitting Unavailabl e RAFITA, COOPER Primary Care Unavailable MARVIN II, RYLIE Brown Referring Unavailabl e MARVIN II, RYLIE Brown Attending Unavailabl e Unavailable Primary Care Provider Unavailabl e ALEXANDRA FRYE Referring Unavailable RAFITA, COOPER AMBRIZ Primary Care Unavailable PRASHANT HERNANDEZ Referring Unavailable RAFITA, COOPER AMBRIZ Primary Care Unavailable RAFITA, COOPER AMBRIZ Admitting Unavailable RAFITA, COOPER AMBRIZ Attending Unavailable RAFITA, COOPER AMBRIZ Primary Care Unavailable CHACE MADRIGALTINA Consulting Unavailable LISBET BRUSH Admitting Unavailable TERESA FAIRBANKS Referring Unavailable ANJELICA HOLLAND Consulting Unavailable JUICE MELENDEZ Attending Unavailable JEANNIE ARELLANO Consulting Unavailable JR. SANJANA, KEITH Maurice Attending Unavaila ble JR. SANJANA, KEITH Maurice Attending Unavaila ble JR. SANJANA, KEITH Maurice Referring Unavaila ble JR. SANJANA, KEITH Maurice Referring Unavaila ble JR SANJANA., KEITH Maurice Attending Unavaila ble JR. SANJANA, KEITH Maurice Referring Unavaila ble JR. SANJANA, KEITH Maurice Attending Unavaila ble Allergies Allergy Classification Reported Allergen(s) Allergy Type Date of Onset Reaction(s) Facility nickel sulfate (1 source) nickel sulfate Drug Allergy 05-22-20 Rash [facility] Opioid Agonists (1 source) Morphine Drug Allergy 05-22-20 Rash [facility] Penicillins (antibiotic) (1 source) Penicillins Drug Allergy 05-[facility]-20 [facility] ([facility] source) Sulfites Substance Allergy 05-22-20 [facility] (2 sources) Morphine; Translations: [Morphine Sulfate] Drug Allergy rash [facility] (20 sources) nickel; Translations: [Nickel] Drug Allergy 06-26-19 11 Rash, Itching (finding), Other [facility] (20 sources) Penicillins; Translations: [PENICILLINS] Allergy to substance (disorder) 04-03-20 15 Swelling [facility] (12 sources) Sulfites/Food Preservatives Allergy to substance (disorder) [facility] (20 sources) Morphine; Translations: [Morphine Sulfate] Drug Allergy 04-03-20 15 Rash, Eruption of skin (disorder), Itching [place], [place] (20 sources) Sulfites; Translations: [SULFITES] Propensity to adverse reactions to drug 04-03-20 15 Other, Itching, Sneezing [place], [place] (6 sources) Leucine Drug Allergy 06-26-19 11 [facility] (2 sources) Acetaminophen / oxyCODONE Drug Allergy 04-05-20 17 [facility] (8 sources) Penicillin; Translations: [penicillin] Drug Allergy Swelling (morphologic abnormality) [facility] (1 source) Acetaminophen / oxyCODONE Drug Allergy 04-05-20 17 [facility] (1 source) Morphine Drug Allergy 07-25-19 11 [facility] (1 source) Penicillin Drug Allergy 10-20-18 63 [facility] (1 source) Sulfites Drug allergy (disorder) 09-26-19 15 [facility] (1 source) Sulfur Based Preservatives Drug allergy Itching (finding) [facility] (1 source) Lactose; Translations: [Lactose] Drug Allergy [facility] (1 source) Sulfites; Translations: [Sulfite Allergy] Propensity to adverse reactions to food (disorder) [facility] (12 sources) Penicillin G Drug Allergy 03-11-20 23 Swelling [facility] (8 sources) cyclobenzaprine; Translations: [CYCLOBENZAPRINE ] Drug Allergy 04-13-20 24 [facility] Work Phone: (2 sources) Sulfites Propensity to adverse reactions to drug 10-01-19 [facility] Current Medications Medication Drug Class(es) Dates Sig (Normalized) Sig (Original) acetaminophen 500 mg oral tablet (16 sources) Start: 11-24-2023 take 2 tablets by mouth every six hours as needed acetaminophen (TYLENOL EXTRA STRENGTH) 500 mg tablet Take 2 tablets (1,000 mg total) by mouth every 6 (six) hours as needed. 11/24/2023 Active Start: 08-05-2021 End: 08-05-2021 acetaminophen (TYLENOL) tabl et 650 mg Acetaminophen 50 0 MG capsule Active acetaminophen 325 mg / HYDROcodone bitartrate 5 mg oral tablet (20 sources) Opioid Agonist Start: 09-26-2024 End: 10-06-2024 take 1 tablet by mouth every eight hours as needed HYDROcodone-acetaminophen (NORCO) 5-325 mg per tablet Take 1 tablet by mouth every 8 (eight) hours as needed. 09/26/2024 10/06/2024 Active Start: 09-26-2024 End: 10-06-2024 HYDROcodone-acetaminophen (N ORCO) 5-325 MG per tablet Indications: Primary osteoarthritis involving multiple joints Take 1 tablet by mouth 2 times daily as needed for Pain for up to 10 days. Max Daily Amount: 2 tablets 20 tablet 09/26/2024 10/06/2024 Active Start: 05-19-2022 take 1 tablet by janie twice daily as needed acetaminophen-hydrocodone 325 mg-5 mg or al tablet TAKE 1 TABLET BY MOUTH TWICE A DAY NEEDED Start Date: 05/19/22 Status: Ordered Start: 08-05-2021 End: 08-05-2021 take 1 tablet by mouth once as needed for pain 1 tablet, Oral, ONCE PRN, Pain Moderate (4-6), Pain Severe (7-10), Starting on Wed08/05/21 at 1451, For 1 dose Maximum dose of acetaminophen is 4000 mg from all sources in 24 hours. PACU only End: 11-29-2023 take 1 tablet by mouth every four hours as needed hydroCODone-acetaminophen 5-325 MG table t Take 1 tablet by mouth every 4 hours as needed. 11/29/2023 Discontinued (Therapy completed) take 2 tablets by mo [facility] once as needed hydrocodone-acetaminophen (NORCO) 5-325 mg [...] mouth daily 30 tablet 3 09/25/2015 Active End: 11-29-2023 Aspirin 500 MG tablet Take 8 1 mg by mouth daily. 11/29/2023 Discontinued (Therapy completed) atorvastatin 20 mg oral tablet (20 sources) HMG-CoA Reductase Inhibitor Start: 05-19-2022 take 1 tablet by mouth in the morning atorvastatin (LIPITOR) 20 mg tablet Take 1 tablet (20 mg total) by mouth in the morning. 11/24/2023 Active Start: 05-27-2018 End: 07-25-2021 take 1 tablet by mouth in the morning atorvastatin (Lipitor) 20 MG tablet Take 20 mg by mouth in the morning. 05/19/2022 Active bismuth subsalicylate (2 sources) Bismuth take 0.5 tablet by mouth once daily Bismuth Subsalicylate (PEPTO-BISMOL PO) Take by mouth 1/2 tablet daily 0 Active take 1 tablet by mouth once marcello y Bismuth Subsalicylate (PEPTO-BISMOL PO) Take by mouth 1 tablet daily 0 Active calcium carbonate 1500 mg oral tablet (13 sources) take 1 tablet by janie th once daily at breakfast calcium carbonate (OS-TIP) 600 mg elemental (1,500 mg) tablet Take 1 tablet (600 mg total) by mouth daily with breakfast. Active take 1 tablet by mouth three florian es daily calcium carbonate 600 MG TABS tablet Take 1 tablet by mouth 3 times daily Active calcium chloride 0.0014 meq/ ml / potassium chloride 0.004 meq/ml / sodium chloride 0.103 meq/ml / sodium lactate 0.028 meq/ml injectable solution (4 sources) Start: 02-15-2023 lactated ringe rs iv infusion Start: 08-05-2021 IntraVENous, a t 125 mL/hr, CONTINUOUS, Starting on Wed08/05/21 at 1515, PACU only Start: 08-05-2021 lactated ringe rs infusion Calcium Citrate (20 sources) Start: 05-19-2022 calcium citrat e Daily, Refills(s) 0 Start Date: 05/19/22 Status: Ordered Calcium Citrate 150 MG CAPS Take by mouth 3 times daily. Active CALCIUM CITRATE PO Take 600 mg by mouth in the morning and 600 mg at noon and 600 mg in the evening. Active calcium citrate 760 mg calcium /3.5 gram oral granules take 1500 by oral route daily Carboxymethylcellulose (15 sources) Start: 11-24-2023 take 2 drop(s) into the eye(s) once daily as needed carboxymethylcellulose sodium (THERATEARS OPHT) Administer 2 drops to both eyes daily as needed. 11/24/2023 Active Start: 11-24-2023 take 2 drop(s) into the eye(s) once daily as needed carboxymethylcellulose sodium (THERATEAR S OPHT) Administer 2 drops to both eyes daily as needed. 11/24/2023 Carboxymethylcel lulose Sodium (EQ RESTORE PLUS LUBRICANT EYE OP) Restore-X Active carvedilol 25 mg oral tablet (20 sources) alpha-Adrenergic Walker, beta-Adrenergic Walker Start: 11-10-2022 take 1 tablet by mouth in the morning, then take 1 tablet by mouth at mealtime carvediloL (COREG) 25 mg tablet Take 1 tablet (25 mg total) by mouth in the morning and 1 tablet (25 mg total) in the evening. Take with meals. 11/24/2023 Active Start: 01-13-2022 take 1 tablet by janie [...] Start Date: 05/19/22 Status: Ordered cetirizine (ZyrT EC) 10 MG tablet Take 10 mg by mouth. Active cholecalciferol 0.05 mg oral tablet (20 sources) Vitamin D take 1 tablet by mouth in the morning cholecalciferol (Vitamin D-3) 50 MCG (1999 UT) tablet Take 1 tablet by mouth in the morning. Active take 1 tablet by mouth at bedtim e cholecalciferol 1,000 units tablet Take 1 tablet (1,000 Units total) by mouth in the morning and at bedtime. Active take 1 tablet by janie th once in the morning vitamin D (CHOLECALCIFEROL) 1000 UNIT TA BS tablet Take 1 tablet by mouth in the morning and 1 tablet in the evening. Active Cholecalciferol (Vitamin D) 50 MCG (1999 UT) TABS Take by mouth. Active take 1 tablet by mouth once marcello y Cholecalciferol (VITAMIN D3 PO) Take 1 tablet by mouth daily. Active take 2 capsules by mouth once da silvino Vitamin D3 2,000 unit oral capsule take 2 capsules by oral route daily take 1 tablet by mouth twice zulema ly vitamin D (CHOLECALCIFEROL) 1000 UNIT TABS tablet Take 1,000 Units by mouth 2 times daily 0 Active Co Q-10 (5 sources) Start: 05-19-2022 Co Q-10 Daily, Refills(s) 0 Start Date: 05/19/22 Status: Ordered Coenzyme Q10 (CO Q 10 PO) (2 sources) take 1 tablet by mouth once daily Coenzyme Q10 (CO Q 10 PO) Take 1 tablet by mouth daily. Active Coenzyme Q10 (COQ10 PO) (8 sources) Coenzyme Q10 (CO Q10 PO) Take by mouth daily 0 Active Coenzyme Q10 (CO Q10 PO) Take by mouth 0 Active cycloSPORINE (RESTASIS) 0.05 % ophthalmic emulsion (3 sources) Start: 11-24-2023 take 1 drop(s) into the eye(s) in the morning cycloSPORINE (RESTASIS) 0.05 % ophthalmic emulsion Administer 1 drop to both eyes in the morning and 1 drop before bedtime. 11/24/2023 Active Start: 11-24-2023 take 1 drop(s) into the eye(s) in the morning cycloSPORINE (RESTASIS) 0.05 % ophthalmic emulsion Administer 1 drop to both eyes in the morning and 1 drop before bedtime. 11/24/2023 1 ml dexamethasone phosphate 10 mg/ml injection (1 source) Corticosteroid Start: 02-15-2023 End: 02-15-2023 dexamethasone sod phosphate PF (DECADRON) 10 MG/ML injection diclofenac potassium 50 mg oral tablet (4 sources) Nonsteroidal Anti-inflammatory Drug diclofenac (CATAFLAM) 50 MG tablet 50 mg 2 times daily 0 Active docosahexaenoic acid 200 mg oral capsule (3 sources) Start: 11-24-2023 take 1 capsule by mouth in the morning docosahexaenoic acid (EXPECTA LIPIL) 200 mg capsule Take 1 capsule (200 mg total) by mouth in the morning. 11/24/2023 Active Eye Multivitamin oral tablet (5 sources) Start: 05-19-2022 Eye Multivitamin oral tablet Daily, Refill(s) 0 Start Date: 05/19/22 Status: Ordered ferrous sulfate 325 mg oral tablet (6 sources) Start: 10-03-2024 End: 11-03-2024 take 1 tablet by mouth once daily at breakfast ferrous sulfate 325 (65 FE) MG tablet Take 1 tablet (325 mg total) by mouth daily with breakfast for 30 days. 30 tablet 10/04/2024 11/03/2024 Active End: 07-28-2017 take 1 capsule by mouth once daily iron 325 mg (65 mg iron) oral capsule, extended release 07/28/2017 take 1 capsule by oral route daily Fish Oils (17 sources) Start: 05-19-2022 [place]-3 Fish O il Daily, Refills(s) 0 Start Date: 05/19/22 Status: Ordered End: 11-27-2014 take 1 capsule by mouth once daily Fish Oil 500 mg oral capsule 11/27/2014 take 1 capsule by oral route daily furosemide 20 mg oral tablet (1 source) Loop Diuretic Start: 03-27-2024 take 1 tablet by mouth once daily as needed for edema furosemide (LASIX) 20 MG tablet Take 1 tablet by mouth daily as needed (leg edema) 30 tablet 03/27/2024 Active Handicap Placard MISC (1 source) Start: 07-19-2023 Handicap Placard [facility] [place] Indications: Bursitis of left hip, unspecified bursa by Does not apply route Duration; permanent placard 1 each 07/19/2023 Active HYDROmorphone HCl PF (DILAUDID) injection 0.25 mg (1 source) Start: 09-28-2024 HYDROmorphone HCl PF (DILAUDID) injection 0.25 mg lactulose 667 mg/ml oral solution (3 sources) Osmotic Laxative Start: 10-03-2024 End: 11-02-2024 take 30 mL by mouth once daily as needed for constipation lactulose (CHRONULAC) 10 gram/15 mL solution Take 30 mL (20 g total) by mouth daily as needed (For constipation) for up to 30 days. 237 mL 10/03/2024 11/02/2024 Active lisinopril 40 mg oral tablet (20 [...] daily 90 tablet 1 10/03/2021 Active Start: 05-30-2018 End: 11-29-2023 take 1 tablet by mouth once daily lisinopril (PRINIVIL;ZESTRIL) 20 MG tablet Take 1 tablet by mouth daily 90 tablet 3 07/25/2021 Active metFORMIN hydrochloride 500 mg oral tablet (20 sources) Biguanide Start: 05-19-2022 End: 10-03-2024 take 1 tablet by mouth in the morning metFORMIN (Glucophage) 500 MG tablet Take 500 mg by mouth in the morning and 500 mg in the evening. Take with meals. 05/19/2022 Active Start: 09-17-2021 take 1 tablet by janie th once daily metFORMIN (GLUCOPHAGE) 500 MG tablet [...] 1 tablet by janie th twice daily metFORMIN (GLUCOPHAGE) 500 MG tablet Indications: Type 2 diabetes mellitus without complication, without long-term current use of insulin (HCC) Take 1 tablet by mouth 2 times daily 180 tablet 3 11/01/2023 Active Multivitamin preparation (5 sources) Start: 05-19-2022 multivitamin D aily, Refill(s) 0 Start Date: 05/19/22 Status: Ordered Nasacort Allergy 24HR (5 sources) Start: 05-19-2022 Nasacort Aller gy 24HR Daily, Refill(s) 0 Start Date: 05/19/22 Status: Ordered NONFORMULARY (10 sources) take 1 tablet by mouth once daily NONFORMULARY Take 1 tablet by mouth daily RESTORE OCULAR Active take 1 tablet by mouth once marcello y NONFORMULARY Take 1 tablet by mouth daily RESTORE OCULAR & CO-Q10 0 Active take 1 tablet by mouth twice zulema ly NONFORMULARY Take 1 tablet by mouth 2 times daily RESTORE OCULAR & CO-Q10 0 Active norepinephrine (LEVOPHED) 16 mg in sodium chloride 0.9 % 250 mL infusion (premix) (1 source) Start: 09-29-2024 1-100 mcg/min (0.9375-93.75 mL/hr, rounded to 0.9-93.8 mL/hr), IntraVENous, CONTINUOUS, Starting on Wed09/29/24 at 1100, Until Discontinued, Titrate Infusion? Yes, Initial Infusion Dose: 5 mcg/min, Goal of Therapy is: MAP greater than 65 mmHg, Contact Provider if: Patient is receiving the maximum dose and is not achieving the goal of therapy, Vascular access recommendations: - Step 1: Is the concentration GREATER than 16mg/250mL? >Yes - REQUIRES A central line >No - Proceed to step 2 -Step 2: Concentrations LESS THAN OR EQUAL TO 16mg/250mL, central line preferred, may administer through a peripheral intraVENous catheter for emergent situations (in anticipation of central line placement) or for a short duration (less than 48 hours) if placed in a large vein, at a proximal site. If available, refer to site specific guidance for additional administration requirements/instructions. If Titrate Infusion? is No : Disregard instructions below. If Titrate infusion? is Yes : If rate LESS than 10 mcg/min: Titrate by 2 mcg/min no faster than every 5 minutes to goal. If rate GREATER than or equal to 10 mcg/min: Titrate by 5 mcg/min no faster than every 5 minutes to goal. When approaching therapeutic goal or weaning off, smaller titration increments of 1 mcg/min no faster than every 5 minutes may be used to maintain goal. If patient is not at goal for >15 minutes, titrate infusion by 10 mcg/min every 2 minutes for a max of 10 minutes and contact the provider for further instructions/orders. Restarting the infusion: If the infusion has been stopped for less than or equal to 30 minutes, resume at previous dose. If the infusion has been stopped for greater than 30 minutes, resume at initial starting dose in order. olopatadine 1 mg/ml ophthalmic solution (20 sources) Histamine-1 Receptor Inhibitor End: 07-28-2017 take 1 drop(s) into the eye(s) twice daily as needed olopatadine (Pataday) 0.1 % Solution ophthalmic solution 1 drop 2 times daily as needed for Allergies. Active take 1 drop(s) into the eye(s) once daily Pataday 0.2 % ophthalmic (eye) drops instill 1 drop into both eyes by ophthalmic route once daily [place] 3-6-9 Fatty Acids (TRI PLE OMEGA COMPLEX PO) (12 sources) [place] 3-6-9 Fatt y Acids (TRIPLE OMEGA COMPLEX PO) Take by mouth. Active [place] 3-6-9 Fatty Acids (TRI PLE OMEGA-3-6-9 ORAL) (20 sources) [place] 3-6-9 Fatt y Acids (TRIPLE OMEGA-3-6-9 ORAL) Take by mouth. Active [place] 3-6-9 Fatt y Acids (TRIPLE OMEGA-3-6-9 ORAL) Take by mouth. 0 Suspended [place] 3-6-9 Fatt y Acids (TRIPLE OMEGA-3-6-9 ORAL) Take by mouth. 0 Active omega-3 acid ethyl esters (intermediate) 1000 mg oral capsule (2 sources) take 2 capsules by mouth once daily omega-3 acid ethyl esters 1 g capsule Take 2 capsules by mouth daily. Active [place]-3 Fatty Acids (OMEGA 3 PO) (8 sources) take 1 tablet by mouth once daily [place]-3 Fatty Acids (OMEGA 3 PO) Take 1 tablet by mouth daily 0 Active pantoprazole 40 mg delayed release oral tablet (4 sources) Proton Pump Inhibitor Start: End: take 1 tablet by mouth at bedtime pantoprazole (PROTONIX) 40 mg EC tablet Take 1 tablet (40 mg total) by mouth in the morning and at bedtime for 30 days. 60 tablet 10/03/2024 11/02/2024 Active Start: 09-29-2024 End: 10-03-2024 take 40 mg intravenously every twelve hours 40 mg, intravenous, Every 12 hours, First dose on Wed09/29/24 at 2000, Look-alike/sound-alike medication - verify indication for use., Indication: Upper GI bleed pantoprazole (PROTONIX) 80 mg in sodium chloride 0.9 % 100 mL infusion (1 source) Start: 09-28-2024 take 8 mg intravenously every hour 8 mg/hr (10 mL/hr), IntraVENous, CONTINUOUS, Starting on Wed09/28/24 at 1415, Until Discontinued 28-0.8 MG tablet (12 sources) 28-0.8 MG tablet 1 (one) time each day at the same time. Active Vit-Fe Fumarate-FA ( VITAMIN PO) (12 sources) Vit-Fe Fumarate-FA ( VITAMIN PO) Take by mouth daily Active take 1 tablet by mouth once marcello y Vit-Fe Fumarate-FA ( VITAMIN PO) Take 1 tablet by mouth daily. Active Vit-Fe Fumarate-FA ( VITAMIN PO) Take by mouth daily 0 Active Vit-Fe Fumarate-FA ( VITAMIN PO) Take by mouth 0 Active Probiotic 10 Ultra Strength (1 source) Start: 11-10-2022 Probiotic 10 U ltra Strength Refill(s) 0 Start Date: 11/10/22 Status: Ordered Probiotic Product (PROBIOTIC BLEND PO) (12 sources) Probiotic Produc t (PROBIOTIC BLEND PO) as directed Orally Active Probiotic Product (PROBIOTIC PO) (6 sources) take 1 tablet by mouth once daily Probiotic Product (PROBIOTIC PO) Take 1 tablet by mouth daily Active Probiotic Produc t (PROBIOTIC PO) Take by mouth daily Active Probiotic Produc t (PROBIOTIC PO) Take by mouth daily 0 Active Probiotic Produc t (PROBIOTIC PO) Take by mouth 0 Active 2 ml prochlorperazine 5 mg/ml injection (2 sources) Phenothiazine Start: 09-20-2024 End: 09-20-2024 5 mg, Intravenous, ONCE, 1 dose, On Wed09/20/24 at 1400, For IV route: dilute dose with 10mL normal saline and give by slow IV push at a rate of 5mg/min. Maximum of 40mg/day. Start: 08-05-2021 End: 08-05-2021 5 mg, IntraVENous, ONCE PRN, Nausea, Starting on Wed08/05/21 at 1451, For 1 dose Secondary antiemetic therapy. PACU only SITagliptin 25 mg oral tablet (3 sources) Dipeptidyl Peptidase 4 Inhibitor Start: 10-03-2024 End: 11-02-2024 take 1 tablet by mouth in the morning SITagliptin phosphate (JANUVIA) 25 mg tablet Take 1 tablet (25 mg total) by mouth in the morning for 30 days. 30 tablet 10/03/2024 11/02/2024 Active triamcinolone acetonide 0.055 mg/actuat metered dose nasal spray (20 sources) Corticosteroid triamcinolone (Nasacort Allergy 24HR) 55 MCG/ACT nasal inhaler 1 (one) time each day at the same time. Active take 1 spray(s) nasa l route in the morning triamcinolone (NASACORT) 55 mcg nasal inhaler Administer 1 spray into each nostril in the morning. Active Triamcinolone Ac etonide (NASACORT NASAL) Use in each nostril. Active Triamcinolone Ac etonide (NASACORT AQ NA) by Nasal route daily One spray in each nostril once a day Active Triamcinolone Ac etonide (NASACORT AQ NA) by Nasal route. Active Nasacort 55 mcg nasal aerosol,spray apply [...] NA) by Nasal route 0 Active ubidecarenone 60 mg oral capsule (3 sources) take 1 tablet by mouth once in the morning ubidecarenone (coenzyme Q10) 60 mg capsule Take 1 tablet by mouth in the morning. Active ubidecarenone 100 mg / vitamin e 5 unt oral capsule (20 sources) Start: 05-19-2022 coenzyme Q-10 (Q-SORB) 100 MG capsule Daily, Refills(s) 0 05/19/2022 Active Coenzyme Q10 (Co Q 10) 100 MG CAPS Take by mouth. Active ursodiol 500 mg oral tablet (20 sources) Bile Acid Start: 05-19-2022 take 7.5 mg by mouth twice daily at mealtime ursodiol 500 mg Tab 7.5 mg/kg, Oral, BID, with food, # 180 tab(s), Refills(s) 0 Start Date: 05/19/22 Status: Ordered Start: 10-25-2021 End: 10-03-2024 take 1 tablet by mouth in the morning ursodiol (Actigall) 500 MG tablet Take 500 mg by mouth in the morning and 500 mg before bedtime. 12/17/2022 Active Start: 07-02-2021 take 3 capsules by m outh once daily ursodiol (ACTIGALL) 300 MG capsule Indications: Primary biliary cirrhosis (HCC) Take 3 capsules by mouth daily 270 capsule 3 07/02/2021 Active Start: 04-12-2020 take 1 capsule by mo uth four times daily, then take 2 capsules by mouth in the morning, then take 2 capsules by mouth in the evening ursodiol 300 MG capsule Take 1 capsule by mouth 4 times daily. Takes 2 capsules in the am and 2 capsules in the pm 04/12/2020 Active Start: 01-09-2020 Actigall 300 m g [...] 500 mg by mouth 2 times daily. Active valsartan 320 mg oral tablet (20 sources) Angiotensin 2 Receptor Walker Start: 11-10-2022 End: 10-03-2024 take 1 tablet by mouth in the morning valsartan (Diovan) 320 MG tablet Take 320 mg by mouth in the morning. 11/10/2022 Active take 2 tablets by mouth once zulema ly Valsartan 160 MG tablet Take 2 tablets by mouth daily. Active Vitamin D (8 sources) Start: 05-19-2022 Vitamin D Marcello y, Refills(s) 0 Start Date: 05/19/22 Status: Ordered take 1 tablet by mouth twice zulema ly vitamin D (CHOLECALCIFEROL) 1000 UNIT TABS tablet Take 1,000 Units by mouth 2 times daily 0 Active Completed/Discontinued Medications Medication Drug Class(es) Dates Sig (Normalized) Sig (Original) ALTEplase (CATHFLO) injection 2 mg (1 source) Start: 09-29-2024 2 mg, IntraCATHeter, PRN, Starting on Wed09/29/24 at 1038, Until Discontinued, for PICC occlusion., Dilute with 2.2 mL of sterile water to final concentration of 1 mg/mL. Instill 2 mg alteplase in each occluded lumen. After 30 minutes of dwell time, assess patency. If still occluded, reassess after a total of 120 minutes of dwell time. If still occluded after 120 minutes, obtain new vials of alteplase and sterile water. Dilute and instill a second 2 mg dose per occluded lumen and assess patency as outlined above. Once patency is restored, aspirate 5 mL of blood to remove alteplase and residual clot then flush with 10 mL normal saline. apixaban 5 mg oral tablet (10 sources) Factor Xa Inhibitor Start: 12-13-2023 End: 06-20-2024 take 0.5 tablet by mouth in the morning apixaban (Eliquis) 5 MG tablet Indications: Encounter for deep vein thrombosis prophylaxis Take 0.5 tablets (2.5 mg) by mouth in the morning and 0.5 tablets (2.5 mg) before bedtime. Do all this for 14 days. 14 tablet 12/13/2023 06/20/2024 Discontinued (Therapy completed) calcium carbonate 1250 mg / cholecalciferol 0.01 [...] granules take 1500 by oral route daily Calcium Gluconate (1 source) Start: 09-29-2024 End: 10-03-2024 calcium gluconate IVPB 1000 mg/50 mL (20 mg/mL premix) clindamycin 150 mg oral capsule (7 sources) Lincosamide Antibacterial Start: 07-14-2024 End: 10-03-2024 clindamycin (CLEOCIN) 150 mg capsule Take 1 capsule (150 mg total) by mouth. 07/14/2024 10/03/2024 Discontinued (Stop Taking at Discharge) Start: 07-14-2024 clindamycin (C LEOCIN) 150 MG capsule TAKE 4 CAPSULES 1 HR BEFORE DENTAL WORK 4 capsule 07/14/2024 Active Start: 05-19-2022 take 3 capsules by m outh every eight hours clindamycin 150 mg Cap 450 mg = 3 cap(s), Oral, q8hr, # 90 cap(s), Refills(s) 0 Start Date: 05/19/22 Status: Ordered Start: 08-05-2021 End: 08-05-2021 clindamycin (CLEOCIN) 900 mg in dextrose 5 % 50 mL IVPB co Q10-red yeast rice 60-600 mg oral [...] take 1 capsule by oral route daily cyclobenzaprine hydrochloride 10 mg oral tablet (10 sources) Muscle Relaxant Start: 04-02-2023 End: 04-13-2024 take 1 tablet by mouth three times daily as needed cyclobenzaprine (FLEXERIL) 10 MG tablet Take 1 Tablet by mouth 3 times daily as needed. 90 Tablet 3 06/17/2023 04/13/2024 Discontinued cycloSPORINE 0.5 mg/ml ophthalmic suspension (20 sources) Calcineurin Inhibitor Immunosuppressant Start: 09-28-2024 take 1 drop(s) into the eye(s) twice daily 1 drop, Ophthalmic, 2 TIMES DAILY RESP, First dose (after last reorder) on [facility] 09/28/24 at 2200, Until Discontinued, Please select a reason the therapeutic interchange was not accepted: Okay for Pharmacy to Substitute Start: 11-10-2022 cycloSPORINE ( Restasis) 0.05 % ophthalmic emulsion 1 drop. 11/10/2022 Active Start: 11-10-2022 take 1 drop(s) into the eye(s) twice daily Restasis ophthalmic 1 drop(s), BID, Refill(s) 0 Start Date: 11/10/22 Status: Ordered Start: 02-01-2018 take 1 drop(s) into the eye(s) every twelve hours Restasis 0.05 % ophthalmic (eye) dropperette 02/01/2018 instill 1 drop into both eyes by ophthalmic route every 12 hours take 1 drop(s) into the eye(s) twice daily cyclosporin 0.05 % Emulsion ophthalmic suspension 1 drop 2 times daily. Active cycloSPORINE (RE STASIS OP) by Ophthalmic route 2 times a day. Active take 1 drop(s) into the eye(s) in the morning CycloSPORINE (RESTASIS OP) Apply 1 drop to eye in the morning and 1 drop in the evening. Both Eyes. Active cycloSPORINE (RE STASIS OP) by Ophthalmic route 2 times a day. 0 Suspended cycloSPORINE (RE STASIS OP) by Ophthalmic route 2 times a day. 0 Active cycloSPORINE (RE STASIS OP) by Ophthalmic route. 0 Active take 1 drop(s) into the eye(s) twice daily CycloSPORINE (RESTASIS OP) Apply 1 drop to eye 2 times daily 0 Active docusate sodium 100 mg oral capsule (5 [...] day 30 minutes before meals estrogens, conjugated (intermediate) 0.625 mg/ml vaginal cream (12 sources) Estrogen End: 05-13-2016 apply 0.5 g topically three times weekly Premarin 0.625 mg/gram vaginal cream 05/13/2016 apply 0.5 gram by topical route three times a wk 2 ml famotidine 10 mg/ml injection (1 source) Histamine-2 Receptor Antagonist Start: 08-05-2021 End: 08-05-2021 famotidine (PEPCID) injection 20 mg 2 ml fentaNYL 0.05 mg/ml injection (3 sources) Opioid Agonist Start: 09-28-2024 End: 09-29-2024 take 25 ug by mouth every two hours as needed for pain 25 mcg, IntraVENous, EVERY 2 HOURS PRN, Starting on Renee 09/28/24 at 1357, Until Wed09/29/24 at 0603, Pain Severe (7-10), If oral and IV narcotics ordered, use oral first and only use IV if oral is ineffective or cannot take oral. Do Not give oral and IV within 1 hour of each other unless specifically ordered. Start: 08-05-2021 50 mcg, IntraV ENous, EVERY 5 MIN PRN, Pain Severe (7-10), Starting on Wed08/05/21 at 1451, For 4 doses Phase I - Initial therapy for severe pain. PACU only Start: 08-05-2021 25 mcg, IntraV ENous, EVERY 5 MIN PRN, Pain Moderate (4-6), Starting on Wed08/05/21 at 1451, For 4 doses Phase I - Initial therapy for moderate pain. PACU only fentaNYL (SUBLIMAZE) injection 50 mcg (1 source) Start: 09-29-2024 End: 10-03-2024 take 50 ug intravenously every two hours as needed fentaNYL (SUBLIMAZE) injection 50 mcg fluticasone furoate 0.0275 mg/actuat metered dose nasal spray (12 sources) Corticosteroid End: 12-12-2012 take 2 spray(s) nasal route once daily Veramyst 27.5 mcg/actuation nasal spray,suspensio n 12/12/2012 spray 2 sprays (55 mcg) in each nostril by intranasal route once daily glucagon (rdna) 1 mg injection (1 source) Antihypoglycemic Agent Start: 09-29-2024 End: 10-03-2024 1 mg, intramuscular, As needed, low blood sugar, blood glucose less than 70 mg/dL and unconscious or NPO without IV access., Starting on Wed09/29/24 at 1955, If conscious and not NPO, immediately follow with meal tray or high protein (7Grams) snack if tray not available. If NPO, initiate IV 5% Dextrose/Water at 100 mL/hr and contact prescriber for additional orders. If blood glucose is not greater than 70 mg/dL after initial treatment, repeat treatment. glucosamin-chond [id number] Oral (12 sources) End: 06-12-2013 glucosamin-katlyn [id number] Oral 06/12/2013 50 ml glucose 500 mg/ml prefilled syringe (2 sources) Start: 09-29-2024 End: 10-03-2024 15 g, oral, As needed, low blood sugar, blood glucose less than 70 mg/dL, Starting on Wed09/29/24 at 1955, If patient conscious and taking PO. If blood glucose is not greater than 70 mg/dL after initial treatment, repeat treatment. Start: 09-29-2024 End: 10-03-2024 25 mL, intravenous, As neede d, low blood sugar, blood glucose less than 70 mg/dL and unconscious or NPO with IV access, Starting on Wed09/29/24 at 1955, Push over 1-3 minutes STAT. If conscious and not NPO, immediately follow with meal tray or high protein (7 grams) snack if tray not available. If NPO, initiate 5% dextrose in water at 100 mL/hr and contact prescriber for additional orders. If blood glucose is not greater than 70 mg/dL after initial treatment, repeat treatment. VESICANT (RED) Warning: HYPERTONIC solution. 1 ml hydrALAZINE hydrochloride 20 mg/ml injection (1 source) Arteriolar Vasodilator Start: 10-01-2024 End: 10-03-2024 take 10 mg intravenously every six hours as needed 10 mg, intravenous, Every 6 hours PRN, high blood pressure, Starting on Wed10/01/24 at 0940, For systolic blood pressure greater than 160 mmHg Look-alike/sound-alike medication - verify indication for use. Administer IV doses as a slow IV push; maximum rate: 5 mg/minute. hydroCHLOROthiazide 12.5 mg oral tablet (20 sources) Thiazide Diuretic Start: 05-19-2022 End: 10-03-2024 take 1 tablet by mouth once daily hydroCHLOROthiazide (HYDRODIURIL) 12.5 mg tablet Take 1 tablet (12.5 mg total) by mouth daily. 11/24/2023 10/03/2024 Discontinued (Stop Taking at Discharge) take 1 capsule by [facility] once daily hydroCHLOROthiazide 12.5 MG capsule Take 1 capsule by mouth daily. Active End: 05-13-2016 take 0.5 tablet by mouth once daily in the morning hydrochlorothiazide 25 mg oral tablet 05/13/2016 take 0.5 tablet by oral route once a day (in the morning) hydroCHLOROthiazide 25 mg / losartan potassium 100 mg oral tablet (12 sources) Thiazide Diuretic, Angiotensin 2 Receptor Walker End: 11-27-2014 take 1 tablet by mouth once daily losartan-hydrochlorothiazide 100-25 mg oral tablet 11/27/2014 take 1 tablet by oral route once daily hypromellose 5 mg/ml ophthalmic solution (1 source) Start: 10-02-2024 End: 10-03-2024 ibuprofen 200 mg oral tablet (1 source) Nonsteroidal Anti-inflamma tory Drug End: 11-29-2023 take 1 tablet by mouth every six hours as needed Ibuprofen 200 MG tablet Take 1 tablet by mouth every 6 hours as needed for Mild Pain. 11/29/2023 Discontinued (Therapy completed) 3 ml insulin lispro 100 unt/ml pen injector (2 sources) Insulin Analog Start: 10-02-2024 End: 10-03-2024 inject 400 mg by subcutaneous injection once daily, then inject 2 [IU] by subcutaneous injection 15 minutes after mealtime 1-4 Units, subcutaneous, Nightly, First dose on Wed10/02/24 at 2200, Bedtime hyperglycemia dosing. For blood glucose 201-250 mg/dL, give 1 unit. For blood glucose 251-300 mg/dL, give 2 units. For blood glucose 301-350 mg/dL, give 3 units. For blood glucose 351-400 mg/dL, give 4 units. Give even if NPO or meals skipped. Do NOT give more often than every 4 hours when NPO. Notify prescriber if blood glucose greater than 400 mg/dL. Look-alike/sound-alike medication - verify indication for use. Prime with 2 units of insulin prior to administration. Prandial/supplemental Insulin. Pre-filled pens stable 28 days at room temperature. Insulin lispro should be administered within 15 minutes before or immediately after a meal. Start: 10-02-2024 End: 10-03-2024 inject 400 mg by subcutaneous injection three times daily at mealtime, then inject 2 [IU] by subcutaneous injection 15 minutes after mealtime 1-5 Units, subcutaneous, 3 times daily with meals, First dose on 10/02/24 at 1730, Daytime hyperglycemia dosing. For blood glucose 151-200 mg/dL, give 1 unit. For blood glucose 201-250 mg/dL, give 2 units. For blood glucose 251-300 mg/dL, give 3 units. For blood glucose 301-350 mg/dL, give 4 units. For blood glucose 351-400 mg/dL, give 5 units. Give even if NPO or meals skipped. Do NOT give more often than every 4 hours when NPO. Notify prescriber if blood glucose greater than 400 mg/dL. Look-alike/sound-alike medication - verify indication for use. Prime with 2 units of insulin prior to administration. Prandial/supplemental Insulin. Pre-filled pens stable 28 days at room temperature. Insulin lispro should be administered within 15 minutes before or immediately after a meal. iopamidol (ISOVUE-370) 76 % injection 100 mL (1 source) Start: 09-28-2024 End: 09-28-2024 take 1 dose intravenously once 100 mL, IntraVENous, IMG ONCE PRN, 1 dose, Starting on Renee 09/28/24 at 1458, Until Renee 09/28/24 at 1504, Other Iron (10 sources) End: 07-28-2017 take 1 [...] by oral route 2 times a day levothyroxine sodium 0.1 mg oral tablet (20 sources) l-Thyrox ine Start: 11-24-2023 Start: 05-19-2022 End: 10-03-2024 100 mcg, oral, Daily, First dose on Wed10/01/24 at 1000, Look-alike/sound-alike medication. Verify indication for use Administer on empty stomach at least ONE hour before or TWO hours after food Enteral Feeding: For 7 days or less of tube feeding- do NOT hold tube feedings, after 7 days- hold tube feedings ONE hour before and ONE hour after administration DOES NOT APPLY TO NEONATES Monitor thyroid function tests weekly Start: 05-19-2022 take 1 tablet by janie th once daily levothyroxine 100 mcg (0.1 mg) Tab 100 mcg = 1 tab(s), Oral, Daily, # 30 tab(s), Refills(s) 0 Start Date: 05/19/22 Status: Ordered Start: 05-27-2018 End: 07-25-2021 take 1 tablet by mouth in the morning levothyroxine (Synthroid, Levoxyl) 100 MCG tablet Take 100 mcg by mouth in the morning. 05/19/2022 Active loratadine 10 mg oral tablet (1 source) Start: 10-02-2024 End: 10-03-2024 take 10 mg by mouth once daily 10 mg, oral, Daily, First dose on Wed10/02/24 at 1715, Look-alike/sound-alike medication - verify indication for use. Suprep Bowel Prep Kit 17.5-3.13-1.6 gram oral recon soln (20 sources) Start: 11-12-2016 End: 07-28-2017 Suprep Bowel Prep Kit 17.5-3.13-1.6 gram oral recon soln 11/12/2016 07/28/2017 take as directed Start: 09-19-2015 Suprep Bowel P rep Kit 17.5-3.13-1.6 gram oral recon soln 09/19/2015 take as directed magnesium sulfate IVPB 2000 mg/50 mL in iso-osmotic water (40 mg/mL premix) (1 source) Start: 09-29-2024 End: 10-03-2024 magnesium sulfate IVPB 2000 mg/50 mL in iso-osmotic water (40 mg/mL premix) melatonin 10 mg oral tablet (20 sources) End: 11-29-2023 take 1 tablet by mouth at bedtime Melatonin 10 MG tablet Take 10 mg by mouth at bedtime. 11/29/2023 Discontinued (Therapy completed) take 1 capsule by mouth once zulema ly Melatonin 10 MG CAPS Take 10 mg by mouth nightly 0 Active meloxicam 15 mg oral tablet (20 sources) Nonsteroidal Anti-inflammatory Drug Start: 05-19-2022 End: 10-03-2024 take 1 tablet by mouth in the morning MOBIC 15 mg tablet Take 1 tablet (15 mg total) by mouth in the morning. 04/17/2024 10/03/2024 Discontinued (Stop Taking at Discharge) take 0.5 tablet by mouth once da silvino meloxicam (Mobic) 15 MG tablet Take 0.5 tablets by mouth daily. Active mometasone furoate 0.05 mg/actuat metered dose [...] capsule by oral route daily obeticholic acid 10 mg oral tablet (17 sources) Farnesoid X Receptor Agonist Start: 05-16-2020 End: 11-29-2023 take 1 tablet by mouth once daily Ocaliva 10 MG tablet Take 10 mg by mouth daily. 05/16/2020 11/29/2023 Discontinued (Therapy completed) Start: 01-09-2020 take 2 tablets by mo [facility] once daily Ocaliva 5 mg oral tablet 01/09/2020 TAKE 2 TABLET DAILY. Start: 08-29-2019 Obeticholic Ac id (OCALIVA) 5 MG TABS 5 mg daily 30 tablet 0 08/29/2019 Active Start: 03-24-2018 [facility] Ocaliva 5 mg oral tablet 01/24/2019 TAKE 1 TABLET DAILY. [place]-3 350 mg-235 mg- 90 mg-597 mg oral capsule,delayed release(DR/EC) (12 sources) take 1 capsule by mouth once daily [place]-3 350 mg-235 mg- 90 mg-597 mg oral capsule,delayed release(DR/EC) take 1 capsule by oral route daily omeprazole 40 mg delayed release oral capsule (2 sources) Proton Pump Inhibitor End: 025 take 1 capsule by mouth once daily before breakfast omeprazole (PriLOSEC) 40 mg capsule Take 1 capsule (40 mg total) by mouth every morning before breakfast. 10/03/2024 Discontinued (Stop Taking at Discharge) 2 ml ondansetron 2 mg/ml injection (3 sources) Serotonin-3 Receptor Antagonist Start: 4 mg, IntraVENous, EVERY 6 HOURS PRN, Starting on Renee 09/28/24 at 1400, Until Discontinued, Nausea, Vomiting Start: 09-20-2024 End: 09-20-2024 4 mg, Intravenous, ONCE N EEDED, 1 dose, Starting on Wed09/20/24 at 1053, Until Wed09/20/24 at 1225, Nausea, Intra-op/Intra-Proc Start: 08-05-2021 End: 08-05-2021 4 mg, IntraVENous, ONCE PRN, Nausea, Starting on Wed08/05/21 at 1451, For 1 dose Initial antiemetic therapy. PACU only 24 hr oxybutynin chloride 15 mg extended release oral tablet (20 sources) Cholinergic Muscarinic Antagonist Start: 08-13-2015 End: 05-13-2016 take 1 tablet by mouth once daily oxybutynin chloride 15 mg oral tablet extended release 24hr 08/13/2015 05/13/2016 take 1 tablet (15 mg) by oral route once daily End: 11-27-2014 take 1 tablet by mouth twice daily oxybutynin chloride 5 mg oral tablet 11/27/2014 take 1 tablet (5 mg) by oral route 2 times per day oxyCODONE hydrochloride 5 mg oral tablet (1 source) Opioid Agonist Start: 09-20-2024 End: 09-20-2024 take 1 dose by mouth once 2.5 mg, Oral, ONCE, 1 dose, On Wed09/20/24 at 1430 polyvinyl alcohol 0.005 ml/ml / povidone 6 mg/ml ophthalmic solution (1 source) Start: 09-28-2024 End: 09-28-2024 1 drop, Both Eyes, 2 TIMES DAILY, First dose on Wed09/28/24 at 2100, Until Discontinued, Substituted for cycloSPORINE (RESTASIS). Potassium Chloride (2 sources) Start: 09-29-2024 End: 10-03-2024 potassium chloride (K-TAB,KLOR-CON) CR tablet 20-40 mEq Start: 03-27-2024 take 1 tablet by janie th once daily as needed potassium chloride (KLOR-CON M) 20 MEQ extended release tablet Take 1 tablet by mouth daily as needed (/ Take with lasix water pill) 30 tablet 5 03/27/2024 Active potassium chloride IVPB 10 mEq/50 mL in water (0.2 mEq/mL premix) (1 source) Start: 09-29-2024 End: 10-03-2024 potassium chloride IVPB 10 mEq/50 mL in water (0.2 mEq/mL premix) oral (12 sources) oral ta ke once daily Probiotic oral (12 sources) Probiotic oral o nce daily Restasis 0.05 % ophthalmic (eye) dropperette (1 source) Start: 02-01-2018 take 1 drop(s) into the eye(s) every twelve hours Restasis 0.05 % ophthalmic (eye) dropperette 02/01/2018 instill 1 drop into both eyes by ophthalmic route every 12 hours Restore ete vitamin (10 sources) Restore ete kaleb min 2 tablets daily- eye Sodium Chloride (20 sources) Start: 09-30-2024 End: 10-03-2024 take 10 mL intravenously every eight hours sodium chloride 0.9 % flush 10 mL Start: 09-29-2024 5-40 mL, Intra VENous, EVERY 12 HOURS SCHEDULED (2 times per day), First dose on Wed09/29/24 at 2100, Until Discontinued, For Line Patency: Peripheral IV = 5 [...] mL Midline or Central Line = 20 mL/lumen Start: 09-29-2024 End: 09-30-2024 take 75 mL intravenously every hour 75 mL/hr, intravenous, Continuous, Starting on Wed09/29/24 at 2015, For 1 day Start: 09-29-2024 5-40 mL, Intra VENous, EVERY 12 HOURS SCHEDULED (2 times per day), First dose on Wed09/29/24 at 1100, Until Discontinued, For Line Patency: Peripheral IV = 5 [...] mL Midline or Central Line = 20 mL/lumen Start: 09-29-2024 5-40 mL, Intra VENous, PRN, Starting on Wed09/29/24 at 1324, Until Discontinued, Line Care, After every IV line use, For Line Patency: Peripheral IV = 5 [...] mL Midline or Central Line = 20 mL/lumen Start: 09-28-2024 End: 09-29-2024 IntraVENous, at 5-250 mL/hr, PRN, if patient receiving piggyback infusions and maintenance fluids are not ordered, Starting on Wed09/29/24 at 1324, For piggyback infusion, administer at same rate as piggyback for a total of 25 mL. Enter 25 mL into dose field and piggyback rate into rate field of order. If piggyback is infusing at a rate less than 100 mL/hr, enter 25 mL into dose field and 100 mL/hr into rate field of order. Start: 09-28-2024 Start: 09-28-2024 End: 05-10-2025 take 1 mL intravenously every hour IntraVENous, at 125 mL/hr, CONTINUOUS, Starting on Renee 09/28/24 at 1415, For 48 hours, Maintenance IV fluid order, if a bolus IV fluid order is present, begin this order after the bolus is complete. Start: 08-05-2021 sodium chlorid e flush 0.9 % injection 5-40 mL Start: 08-05-2021 0.9 % sodium c hloride infusion Start: 08-05-2021 sodium chlorid e flush 0.9 % injection 5-40 mL Solifenacin (12 sources) Cholinergic Muscarinic Antagonist End: 06-12-2013 solifenacin Oral 06/12/2013 Suprep Bowel Prep Kit 17.5-3.13-1.6 gram oral recon soln (4 sources) Start: 11-12-2016 End: 07-28-2017 Suprep Bowel Prep Kit 17.5-3.13-1.6 gram oral recon soln 11/12/2016 07/28/2017 take as directed Start: 09-19-2015 Suprep Bowel P rep Kit 17.5-3.13-1.6 gram oral recon soln 09/19/2015 take as directed technetium mebrofenin (CHOLETEC) injection 5 millicurie (1 source) Start: 09-29-2024 End: 09-29-2024 5 millicurie, IntraVENous, IMG ONCE PRN, 1 dose, Starting on Wed09/29/24 at 1254, Until Wed09/29/24 at 1333, Other tiZANidine 4 mg oral capsule (11 sources) Central alpha-2 Adrenergic Agonist End: 06-20-2024 take 1 capsule by mouth in the morning, then take 1 capsule by mouth in the evening, then take 1 capsule by mouth at bedtime tiZANidine (Zanaflex) 4 MG capsule Take 4 mg by mouth in the morning and 4 mg in the evening and 4 mg before bedtime. 06/20/2024 Discontinued (Therapy completed) traMADol hydrochloride 50 mg oral tablet (12 sources) Opioid Agonist End: 05-29-2014 take 1 tablet by mouth every four to six hours as needed tramadol 50 mg oral tablet 05/29/2014 take 1 tablet (50 mg) by oral route every 4-6 hours as needed traZODone hydrochloride 50 mg oral tablet (20 sources) Serotonin Reuptake Inhibitor Start: 11-10-2022 End: 06-20-2024 traZODone (Desyrel) 50 MG tablet Take 50 mg by mouth as needed at bedtime. 11/10/2022 06/20/2024 Discontinued (Therapy completed) take 0.5 tablet by mouth at bedt leila traZODone 50 MG tablet Take 0.5 tablets by mouth At bedtime. Active ubiquinol 100 mg oral capsule (12 sources) Start: 07-11-2019 take 2 capsules by mouth once daily coQ10 (ubiquinol) 100 mg oral capsule 07/11/2019 take 2 capsules by oral route daily take 1 capsule by mouth once zulema ly coQ10 (ubiquinol) 100 mg oral capsule take 1 capsule by oral route daily Problems Active Problems Problem Classification Problem Date Documented Da te Episodic/Chronic Abdominal pain (7 sources) Acute abdominal pain; Translations: [Unspecified abdominal pain] Onset: 5 09-28-2024 Episodic Acute posthemorrhagic anemia (3 sources) Acute posthemorrhagic anemia; Translations: [Acute posthemorrhagic anemia] Onset: 5 10-03-2024 Episodic Deficiency and other anemia (2 sources) Iron deficiency anemia; Translations: [Iron deficiency anemia, unspecified] 10-03-2024 Episodic Deficiency and other anemia (1 source) Iron deficiency anemia, unspecified; Translations: [Iron deficiency anemia, unspecified] Onset: Episodic Diabetes mellitus without complication (20 sources) Type 2 diabetes mellitus; Translations: [Type 2 diabetes mellitus without complication] Onset: 6 Resolved: 5 04-03-2015 Chronic Disorders of lipid metabolism (20 sources) Other and unspecified hyperlipidemia; Translations: [Mixed hyperlipidemia] Onset: 6 Resolved: 5 05-19-2016 Chronic Essential hypertension (20 sources) Essential hypertension; Translations: [Hypertensive disorder] Onset: 5 Resolved: 5 05-08-2015 Chronic Gastrointestinal hemorrhage (11 sources) Gastrointestinal hemorrhage; Translations: [Hemorrhage of anus and rectum] Onset: 5 09-29-2024 Episodic Genitourinary symptoms and ill-defined conditions (14 sources) Mixed urinary incontinence; Translations: [Incontinence] Onset: 6 04-06-2016 Chronic Menopausal disorders (4 sources) Unspecified menopausal and postmenopausal disorder; Translations: [Menopausal and female climacteric states] Onset: 0 Chronic Osteoarthritis (1 source) Unilateral primary osteoarthritis, left knee; Translations: [UNI PRIM OSTEOARTHRITIS LT KNEE] Onset: 2 Chronic Other connective tissue disease (1 source) Presence of left artificial knee joint; Translations: [PRESENCE LEFT ARTIFICIAL KNEE JOINT] Onset: 2 Chronic Other connective tissue disease (6 sources) History of repair of hip joint; Translations: [Presence of left artificial hip joint] 03-20-2024 Chronic Other diseases of bladder and urethra (2 sources) Bladder muscle dysfunction - overactive; Translations: [OAB (overactive bladder)] Onset: 6 04-06-2016 Chronic Other diseases of bladder and urethra (20 sources) Overactive bladder; Translations: [Overactive bladder] Onset: 6 04-06-2016 Chronic Other gastrointestinal disorders (1 source) Splenomegaly; Translations: [Splenomegaly, not elsewhere classified] 11-29-2023 Episodic Other liver diseases (20 sources) Biliary cirrhosis Onset: 4 Chronic Other liver diseases (20 sources) Primary biliary cholangitis; Translations: [Primary biliary cirrhosis] Onset: 4 02-25-2018 Chronic Other liver diseases (20 sources) Primary biliary cirrhosis; Translations: [PRIMARY BILIARY CIRRHOSIS] Onset: 5 Chronic Other liver diseases (1 source) Hepatic fibrosis; Translations: [Liver fibrosis] 12-07-2023 Chronic Other nervous system disorders (1 source) Other chronic pain; Translations: [OTHER CHRONIC PAIN] Onset: 2 Chronic Other nervous system disorders (3 sources) Spinal cord disease; Translations: [Disease of spinal cord, unspecified] 10-26-2022 Chronic Other nervous system disorders (2 sources) Disorder of nervous system; Translations: [Other specified disorders of central nervous system] 03-22-2023 Episodic Other non-traumatic joint disorders (4 sources) Hip pain; Translations: [Pain in left hip] 02-02-2024 Episodic Other nutritional; endocrine; and metabolic disorders (2 sources) Body mass index 30+ - obesity; Translations: [Body mass index (BMI) 30.0-30.9, adult] 03-23-2023 Chronic Other nutritional; endocrine; and metabolic disorders (2 sources) Obese class I; Translations: [Obesity, unspecified] Onset: 0 05-22-2020 Chronic Residual codes; unclassified (2 sources) History of surgical procedure on cervical spine; Translations: [Other specified postprocedural states] 04-22-2023 Episodic Residual codes; unclassified (1 source) Pain, unspecified; Translations: [Pain, unspecified] Onset: 5 Episodic Shock (2 sources) Hypovolemic shock; Translations: [Hypovolemic shock] Onset: 5 09-29-2024 Episodic Spondylosis; intervertebral disc disorders; other back problems (20 sources) Other spondylosis with radiculopathy, lumbar region; Translations: [Sacroiliitis, not elsewhere classified] Onset: 2 Chronic Spondylosis; intervertebral disc disorders; other back problems (16 sources) Spinal stenosis of lumbar region; Translations: [Spinal stenosis, lumbar region without neurogenic claudication] Onset: 2 Episodic Thyroid disorders (20 sources) Thyrotoxicosis without mention of goiter or other cause, and without mention of thyrotoxic crisis or storm; Translations: [Hypothyroidism] Onset: 7 02-26-2017 Chronic Unclassified (4 sources) LOW BACK PAIN, UNSPECIFIED; Translations: [LOW BACK PAIN, UNSPECIFIED] Onset: 2 Unclassified (1 source) Hepatic fibrosis, unspecified; Translations: [Hepatic fibrosis, unspecified] Onset: 5 Past or Other Problems Problem Classification Problem Date Documented Da te Episodic/Chronic Calculus of urinary tract (1 source) Kidney stone; Translations: [Renal stones] Episodic Genitourinary symptoms and ill-defined conditions (7 sources) Urgent desire to urinate; Translations: [Increased frequency of urination] Onset: 10-26-2023 Episodic Mood disorders (2 sources) Mood disorders Onset: 09-30-2024 09-30-2024 Other connective tissue disease (4 sources) Other [...] Translations: [DIARRHEA UNSPECIFIED] Onset: 04-25-2022 Episodic Other gastrointestinal disorders (2 sources) Splenomegaly, not elsewhere classified; Translations: [Splenomegaly, not elsewhere classified] Onset: 11-29-2023 Episodic Other non-traumatic joint disorders (4 sources) Pain in left knee; Translations: [PAIN IN LEFT KNEE] Onset: 11-19-2021 Episodic Other screening for suspected conditions (not mental disorders or infectious disease) (10 sources) Encounter for screening mammogram for malignant neoplasm of breast; Translations: [Electrocardiogram abnormal] Onset: 12-25-2021 Episodic Residual codes; unclassified (1 source) Family history of malignant neoplasm of other organs or systems; Translations: [FAM HX MALIG NEOPLASM OTH ORGN/SYS] Onset: 12-26-2021 Episodic Residual codes; unclassified (10 sources) History of major orthopedic surgery; Translations: [Other specified postprocedural states] Onset: 04-03-2023 04-03-2023 Episodic Unclassified (1 source) LOW BACK PAIN, UNSPECIFIED; Translations: [LOW BACK PAIN, UNSPECIFIED] Onset: 03-31-2022 Unclassified (4 sources) Onset: 11-18-2021 Resolved: 03-24-2024 03-24-2024 Unclassified (1 source) Hepatic fibrosis, unspecified; Translations: [Hepatic fibrosis, unspecified] Onset: 09-20-2024 Results Test Name Value Interpretation Reference Range Facility BASIC METABOLIC PANELon 09-21 Anion gap [Moles/Vol] 6 mmol/L Normal 5-15 [facility] Comment on above: Performed By: #### C BCA #### [facility] ([facility]) [address] [place] [address] VIR Calcium [Mass/Vol] 8.2 mg/dL Low 8.5-10.5 [facility] Comment on above: Performed By: #### C BCA #### [facility] ([facility]) [address] [place] [address] VIR Chloride [Moles/Vol] 111 mmol/L High 98-109 [facility] Comment on above: Performed By: #### C BCA #### [facility] ([facility]) [address] [place] [address] VIR CO2 [Moles/Vol] 22 mmol/L Normal 22-32 [facility] Comment on above: Performed By: #### C BCA #### [facility] ([facility]) [address] [place] [address] VIR Creatinine [Mass/Vol] 0.90 mg/dL Normal 0.40-1.00 [facility] Comment on above: Result Comment: METH OD TRACEABLE TO IDMS STANDARD Performed By: #### C BCA #### [facility] ([facility]) [address] [place] [address] VIR GFR/1.73 sq M.predicted among non-blacks MDRD (S/P/Bld) [Vol rate/Area] 67 mL/min/{1.73_m2} Normal >=60 [facility] Comment on above: Result Comment: Repo rted eGFR is based on the CKD-EPI 2020 equation that does not use a race coefficient. Performed By: #### C BCA #### [facility] ([facility]) [address] [place] [address] VIR Glucose [Mass/Vol] 165 mg/dL High 65-99 [facility] Comment on above: Performed By: #### C BCA #### [facility] ([facility]) [address] [place] [address] VIR Potassium [Moles/Vol] 4.2 mmol/L Normal 3.5-5.0 [facility] Comment on above: Performed By: #### C BCA #### [facility] ([facility]) [address] [place] [address] VIR Sodium [Moles/Vol] 139 mmol/L Normal 134-146 [facility] Comment on above: Performed By: #### C BCA #### [facility] ([facility]) [address] [place] [address] VIR Urea nitrogen [Mass/Vol] 22 mg/dL Normal 5-27 [facility] Comment on above: Performed By: #### C BCA #### [facility] ([facility]) [address] [place] [address] VIR BEDSIDE GLUCOSEon 10-03-2024 Glucose [Mass/Vol] 203 mg/dL High 65-99 [facility] Comment on above: Performed By: #### C BCA #### [facility] ([facility]) [address] [place] [address] VIR Glucose [Mass/Vol] 245 mg/dL High 65-99 [facility] Comment on above: Performed By: #### C BCA #### [facility] ([facility]) [address] [place] [address] VIR Basic Metabolic Panelon 05- Anion gap [Moles/Vol] 6 mmol/L 5 - 15 mmol/L [facility] Calcium [Mass/Vol] 8.2 mg/dL Low 8.5 - 10. 5 mg/dL [facility] Chloride [Moles/Vol] 111 mmol/L High 98 - 109 mmol/L [facility] CO2 [Moles/Vol] 22 mmol/L 22 - 32 mmol/L [facility] Creatinine [Mass/Vol] 0.9 mg/dL 0.40 - 1.00 mg/dL [facility] Comment on above: METHOD TRACEABLE TO IDMS STANDARD EGFR Non-Race Dependent 67 - PINF [facility] Comment on above: Reported eGFR is bas ed on the CKD-EPI 2020 equation that does not use a race coefficient. Glucose [Mass/Vol] 165 mg/dL High 65 - 99 mg/dL [facility] Interpretation and review of laboratory results Abnormal [facility] Potassium [Moles/Vol] 4.2 mmol/L 3.5 - 5.0 mmol/L [facility] Sodium [Moles/Vol] 139 mmol/L 134 - 146 mmol/L [facility] Urea nitrogen [Mass/Vol] 22 mg/dL 5 - 27 mg/dL [facility] Bedside Glucose *Place/Obtai n serum glucose if >500 per glucometer.on 10-03-2024 Glucose [Mass/Vol] 203 mg/dL High 65 - 99 mg/dL [facility] Interpretation and review of laboratory results Abnormal [facility] Glucose [Mass/Vol] 245 mg/dL High 65 - 99 mg/dL [facility] Interpretation and review of laboratory results Abnormal [facility] CBC WITH AUTO DIFFERENTIALon 10-03-2024 BASOPHILS ABSOLUTE COUNT (10*3/UL) BY AUTOMATED COUNT 0.0 10*3/uL Normal 0.0-0.2 [facility] Comment on above: Performed By: #### C BCA #### [facility] ([facility]) [address] [place] [address] VIR BASOPHILS RELATIVE PERCENT BY AUTOMATED COUNT 1.2 % Normal [facility] Comment on above: Performed By: #### C BCA #### [facility] ([facility]) [address] [place] [address] VIR CELLAVISION DIFFERENTIAL TYPE AUTOMATED DIFFERENTIAL Normal [facility] Comment on above: Performed By: #### C BCA #### [facility] ([facility]) [address] [place] [address] VIR Eosinophils (Bld) [#/Vol] 0.1 10*3/uL Normal 0.0-0.4 [facility] Comment on above: Performed By: #### C BCA #### [facility] ([facility]) [address] [place] [address] VIR EOSINOPHILS RELATIVE PERCENT BY AUTOMATED COUNT 4.3 % Normal [facility] Comment on above: Performed By: #### C BCA #### [facility] ([facility]) [address] [place] [address] VIR Erythrocyte distribution width (RBC) [Ratio] 15.0 % Normal 11.5-15 [facility] Comment on above: Performed By: #### C BCA #### [facility] ([facility]) [address] [place] [address] VIR Hematocrit (Bld) [Volume fraction] 26.8 % Low 35-47 [facility] Comment on above: Performed By: #### C BCA #### [facility] ([facility]) [address] [facility] [address] [place] [address] VIR Hemoglobin (Bld) [Mass/Vol] 9.1 g/dL Low 11.7-15.5 [facility] Comment on above: Performed By: #### C BCA #### [facility] ([facility]) [address] [facility] [address] [place] [address] VIR LYMPHOCYTES ABSOLUTE COUNT (10*3/UL) BY AUTOMATED COUNT 0.8 10*3/uL Low 1.0-3.5 [facility] Comment on above: Performed By: #### C BCA #### [facility] ([facility]) [address] [facility] [address] [place] [address] VIR LYMPHOCYTES RELATIVE PERCENT BY AUTOMATED COUNT 23.3 % Normal [facility] Comment on above: Performed By: #### C BCA #### [facility] ([facility]) [address] [place] [address] VIR MCH (RBC) [Entitic mass] 29.7 pg Normal 27-34 [facility] Comment on above: Performed By: #### C BCA #### [facility] ([facility]) [address] [place] [address] VIR MCHC (RBC) [Mass/Vol] 33.9 g/dL Normal 32-36 [facility] Comment on above: Performed By: #### C BCA #### [facility] ([facility]) [address] [place] [address] VIR MCV (RBC) [Entitic vol] 88 fL Normal 80-100 [facility] Comment on above: Performed By: #### C BCA #### [facility] ([facility]) [address] [place] [address] VIR MONOCYTES ABSOLUTE COUNT (10*3/UL) BY AUTOMATED COUNT 0.4 10*3/uL Normal 0.0-0.9 [facility] Comment on above: Performed By: #### C BCA #### [facility] ([facility]) [address] [place] [address] VIR MONOCYTES RELATIVE PERCENT BY AUTOMATED COUNT 11.2 % Normal [facility] Comment on above: Performed By: #### C BCA #### [facility] ([facility]) [address] [place] [address] VIR NEUTROPHILS ABSOLUTE COUNT BY AUTOMATED COUNT 2.1 10*3/uL Normal 1.5-6.6 [facility] Comment on above: Performed By: #### C BCA #### [facility] ([facility]) [address] [place] [address] VIR NEUTROPHILS RELATIVE PERCENT BY AUTOMATED COUNT 60.0 % Normal [facility] Comment on above: Performed By: #### C BCA #### [facility] ([facility]) [address] [place] [address] VIR Platelet mean volume (Bld) [Entitic vol] 8.9 fL Normal 7-12 [facility] Comment on above: Performed By: #### C BCA #### [facility] ([facility]) [address] [place] [address] VIR Platelets (Bld) [#/Vol] 99 10*3/uL Low 150-450 [facility] Comment on above: Performed By: #### C BCA #### [facility] ([facility]) [address] [place] [address] VIR RBC COUNT 3.06 X10E12/L Low 3.8-5.2 [facility] Comment on above: Performed By: #### C BCA #### [facility] ([facility]) [address] [place] [address] VIR WBC (Bld) [#/Vol] 3.4 10*3/uL Low 4-11 [facility] Comment on above: Performed By: #### C BCA #### [facility] ([facility]) [address] [place] [address] VIR CBC auto differentialon 09-21 Basophils (Bld) [#/Vol] 0 10*3/uL 0.0 - 0.2 10*3/uL [facility] Basophils/100 WBC (Bld) 1.2 % [facility] Differential cell count method Nom (Bld) AUTOMATED DIFFERENTIAL [facility] Eosinophils (Bld) [#/Vol] 0.1 10*3/uL 0.0 - 0.4 10*3/uL [facility] Eosinophils/100 WBC (Bld) 4.3 % [facility] Erythrocyte distribution width (RBC) [Ratio] 15 % 11.5 - 15 % [facility] Hematocrit (Bld) [Volume fraction] 26.8 % Low 35 - 47 % [facility] Hemoglobin (Bld) [Mass/Vol] 9.1 g/dL Low 11.7 - 15.5 g/dL [facility] Interpretation and review of laboratory results Abnormal [facility] Lymphocytes (Bld) [#/Vol] 0.8 10*3/uL Low 1.0 - 3.5 10*3/uL [facility] Lymphocytes/100 WBC (Bld) 23.3 % [facility] MCH (RBC) [Entitic mass] 29.7 pg 27 - 34 pg [facility] MCHC (RBC) [Mass/Vol] 33.9 g/dL 32 - 36 g/dL [facility] MCV (RBC) [Entitic vol] 88 fL 80 - 100 fL [facility] Monocytes (Bld) [#/Vol] 0.4 10*3/uL 0.0 - 0.9 10*3/uL [facility] Monocytes/100 WBC (Bld) 11.2 % [facility] Neutrophils (Bld) [#/Vol] 2.1 10*3/uL 1.5 - 6.6 10*3/uL [facility] Neutrophils/100 WBC (Bld) 60 % [facility] Platelet mean volume (Bld) [Entitic vol] 8.9 fL 7 - 12 fL [facility] Platelets (Bld) [#/Vol] 99 10*3/uL Low [facility] RBC (Bld) [#/Vol] 3.06 10*6/uL Low [facility] WBC LM Ql (Sput) 3.4 Low [facility] Cult, Bloodon 10-03-2024 Cult, Blood Specimen Description .BLOOD Special Requests rfa, 2ml Culture NO GROWTH 5 DAYS Report Status FINAL 10/03/2024 [facility] Comment on above: Performed By: #### B CUL2 #### [facility] [address] [place] [address] Incident Engineer: Wilver Calvillo MD Cult,Bloodon 10-03-2024 Cult,Blood Specimen Description .BLOOD Special Requests 20ml, rac Culture NO GROWTH 5 DAYS Report Status FINAL 10/03/2024 [facility] Comment on above: Performed By: #### L ACDS #### [facility] [address] [place] [address] Incident Engineer: Wilver Calvillo MD BEDSIDE GLUCOSEon 10-02-2024 Glucose [Mass/Vol] 202 mg/dL High 65-99 [facility] Comment on above: Performed By: #### C BCA #### [facility] ([facility]) [address] [place] [address] VIR Bedside Glucose *Place/Obtai n serum glucose if >500 per glucometer.on 10-02-2024 Glucose [Mass/Vol] 202 mg/dL High 65 - 99 mg/dL [facility] Interpretation and review of laboratory results Abnormal [facility] CBC WITH AUTO DIFFERENTIALon 10-02-2024 BASOPHILS ABSOLUTE COUNT (10*3/UL) BY AUTOMATED COUNT 0.0 10*3/uL Normal 0.0-0.2 [facility] Comment on above: Performed By: #### P TT #### [facility] ([facility]) [address] [place] [address] VIR BASOPHILS RELATIVE PERCENT BY AUTOMATED COUNT 0.7 % Normal [facility] Comment on above: Performed By: #### P TT #### [facility] ([facility]) [address] [place] [address] VIR CELLAVISION DIFFERENTIAL TYPE AUTOMATED DIFFERENTIAL Normal [facility] Comment on above: Performed By: #### P TT #### [facility] ([facility]) [address] [place] [address] VIR Eosinophils (Bld) [#/Vol] 0.2 10*3/uL Normal 0.0-0.4 [facility] Comment on above: Performed By: #### P TT #### [facility] ([facility]) [address] [place] [address] VIR EOSINOPHILS RELATIVE PERCENT BY AUTOMATED COUNT 4.6 % Normal [facility] Comment on above: Performed By: #### P TT #### [facility] ([facility]) [address] [place] [address] VIR Erythrocyte distribution width (RBC) [Ratio] 15.3 % High 11.5-15 [facility] Comment on above: Performed By: #### P TT #### [facility] ([facility]) [address] [place] [address] VIR Hematocrit (Bld) [Volume fraction] 26.5 % Low 35-47 [facility] Comment on above: Performed By: #### P TT #### [facility] ([facility]) [address] [place] [address] VIR Hemoglobin (Bld) [Mass/Vol] 9.1 g/dL Low 11.7-15.5 [facility] Comment on above: Performed By: #### P TT #### [facility] ([facility]) [address] [place] [address] VIR LYMPHOCYTES ABSOLUTE COUNT (10*3/UL) BY AUTOMATED COUNT 0.7 10*3/uL Low 1.0-3.5 [facility] Comment on above: Performed By: #### P TT #### [facility] ([facility]) [address] [place] [address] VIR LYMPHOCYTES RELATIVE PERCENT BY AUTOMATED COUNT 21.4 % Normal [facility] Comment on above: Performed By: #### P TT #### [facility] ([facility]) [address] [place] [address] VIR MCH (RBC) [Entitic mass] 30.1 pg Normal 27-34 [facility] Comment on above: Performed By: #### P TT #### [facility] ([facility]) [address] [place] [address] VIR MCHC (RBC) [Mass/Vol] 34.3 g/dL Normal 32-36 [facility] Comment on above: Performed By: #### P TT #### [facility] ([facility]) [address] [place] [address] VIR MCV (RBC) [Entitic vol] 88 fL Normal 80-100 [facility] Comment on above: Performed By: #### P TT #### [facility] ([facility]) [address] [place] [address] VIR MONOCYTES ABSOLUTE COUNT (10*3/UL) BY AUTOMATED COUNT 0.4 10*3/uL Normal 0.0-0.9 [facility] Comment on above: Performed By: #### P TT #### [facility] LABORATORY ([facility]) [address] [place] [address] VIR MONOCYTES RELATIVE PERCENT BY AUTOMATED COUNT 12.6 % Normal [facility] Comment on above: Performed By: #### P TT #### [facility] ([facility]) [address] [place] [address] VIR NEUTROPHILS ABSOLUTE COUNT BY AUTOMATED COUNT 2.1 10*3/uL Normal 1.5-6.6 [facility] Comment on above: Performed By: #### P TT #### [facility] ([facility]) [address] [place] [address] VIR NEUTROPHILS RELATIVE PERCENT BY AUTOMATED COUNT 60.7 % Normal [facility] Comment on above: Performed By: #### P TT #### [facility] ([facility]) [address] [place] [address] VIR Platelet mean volume (Bld) [Entitic vol] 9.1 fL Normal 7-12 [facility] Comment on above: Performed By: #### P TT #### [facility] ([facility]) [address] [place] [address] VIR Platelets (Bld) [#/Vol] 97 10*3/uL Low 150-450 [facility] Comment on above: Performed By: #### P TT #### [facility] ([facility]) [address] [place] [address] VIR RBC COUNT 3.01 X10E12/L Low 3.8-5.2 [facility] Comment on above: Performed By: #### P TT #### [facility] ([facility]) [address] [place] [address] VIR WBC (Bld) [#/Vol] 3.5 10*3/uL Low 4-11 [facility] Comment on above: Performed By: #### P TT #### [facility] ([facility]) [address] [place] [address] VIR CBC auto differentialon 09-21 Basophils (Bld) [#/Vol] 0 10*3/uL 0.0 - 0.2 10*3/uL [facility] Basophils/100 WBC (Bld) 0.7 % [facility] Differential cell count method Nom (Bld) AUTOMATED DIFFERENTIAL [facility] Eosinophils (Bld) [#/Vol] 0.2 10*3/uL 0.0 - 0.4 10*3/uL [facility] Eosinophils/100 WBC (Bld) 4.6 % [facility] Erythrocyte distribution width (RBC) [Ratio] 15.3 % High 11.5 - 15 % [facility] Hematocrit (Bld) [Volume fraction] 26.5 % Low 35 - 47 % [facility] Hemoglobin (Bld) [Mass/Vol] 9.1 g/dL Low 11.7 - 15.5 g/dL [facility] Interpretation and review of laboratory results Abnormal [facility] Lymphocytes (Bld) [#/Vol] 0.7 10*3/uL Low 1.0 - 3.5 10*3/uL [facility] Lymphocytes/100 WBC (Bld) 21.4 % [facility] MCH (RBC) [Entitic mass] 30.1 pg 27 - 34 pg [facility] MCHC (RBC) [Mass/Vol] 34.3 g/dL 32 - 36 g/dL [facility] MCV (RBC) [Entitic vol] 88 fL 80 - 100 fL [facility] Monocytes (Bld) [#/Vol] 0.4 10*3/uL 0.0 - 0.9 10*3/uL [facility] Monocytes/100 WBC (Bld) 12.6 % [facility] Neutrophils (Bld) [#/Vol] 2.1 10*3/uL 1.5 - 6.6 10*3/uL [facility] Neutrophils/100 WBC (Bld) 60.7 % [facility] Platelet mean volume (Bld) [Entitic vol] 9.1 fL 7 - 12 fL [facility] Platelets (Bld) [#/Vol] 97 10*3/uL Low [facility] RBC (Bld) [#/Vol] 3.01 10*6/uL Low [facility] WBC LM Ql (Sput) 3.5 Low [facility] COMPREHENSIVE METABOLIC PANE [place] 10-02-2024 Albumin [Mass/Vol] 2.9 g/dL Low 3.2-5.3 [facility] Comment on above: Performed By: #### P TT #### [facility] ([facility]) [address] [place] [address] VIR ALP [Catalytic activity/Vol] 119 U/L Normal 39-130 [facility] Comment on above: Performed By: #### P TT #### [facility] ([facility]) [address] [place] [address] VIR ALT [Catalytic activity/Vol] 28 U/L Normal <=31 [facility] Comment on above: Performed By: #### P TT #### [facility] ([facility]) [address] [place] [address] VIR Anion gap [Moles/Vol] 8 mmol/L Normal 5-15 [facility] Comment on above: Performed By: #### P TT #### [facility] ([facility]) [address] [place] [address] VIR AST [Catalytic activity/Vol] 30 U/L Normal <=41 [facility] Comment on above: Performed By: #### P TT #### [facility] ([facility]) [address] [place] [address] VIR Bilirubin [Mass/Vol] 0.6 mg/dL Normal 0.3-1.2 [facility] Comment on above: Performed By: #### P TT #### [facility] ([facility]) [address] [place] [address] VIR Calcium [Mass/Vol] 8.3 mg/dL Low 8.5-10.5 [facility] Comment on above: Performed By: #### P TT #### [facility] ([facility]) [address] [place] [address] VIR Chloride [Moles/Vol] 113 mmol/L High 98-109 [facility] Comment on above: Performed By: #### P TT #### [facility] ([facility]) [address] [place] [address] VIR CO2 [Moles/Vol] 20 mmol/L Low 22-32 [facility] Comment on above: Performed By: #### P TT #### [facility] ([facility]) [address] [place] [address] VIR Creatinine [Mass/Vol] 0.97 mg/dL Normal 0.40-1.00 [facility] Comment on above: Result Comment: METH OD TRACEABLE TO IDMS STANDARD Performed By: #### P TT #### [facility] ([facility]) [address] [place] [address] VIR GFR/1.73 sq M.predicted among non-blacks MDRD (S/P/Bld) [Vol rate/Area] 61 mL/min/{1.73_m2} Normal >=60 [facility] Comment on above: Result Comment: Repo rted eGFR is based on the CKD-EPI 2020 equation that does not use a race coefficient. Performed By: #### P TT #### [facility] ([facility]) [address] [place] [address] VIR Glucose [Mass/Vol] 215 mg/dL High 65-99 [facility] Comment on above: Performed By: #### P TT #### [facility] ([facility]) [address] [place] [address] VIR Potassium [Moles/Vol] 4.2 mmol/L Normal 3.5-5.0 [facility] Comment on above: Performed By: #### P TT #### [facility] ([facility]) [address] [place] [address] VIR Protein [Mass/Vol] 5.4 g/dL Low 6.0-8.0 [facility] Comment on above: Performed By: #### P TT #### [facility] ([facility]) [address] [place] [address] VIR Sodium [Moles/Vol] 141 mmol/L Normal 134-146 [facility] Comment on above: Performed By: #### P TT #### [facility] ([facility]) [address] [place] [address] VIR Urea nitrogen [Mass/Vol] 28 mg/dL High 5-27 [facility] Comment on above: Performed By: #### P TT #### [facility] ([facility]) [address] [place] [address] VIR Comprehensive metabolic pane [place] 10-02-2024 Albumin [Mass/Vol] 2.9 g/dL Low 3.2 - 5.3 g/dL [facility] ALP [Catalytic activity/Vol] 119 U/L 39 - 130 U/L [facility] ALT No additional P-5'-P [Catalytic activity/Vol] 28 U/L NINF - 31 U/L [facility] Anion gap [Moles/Vol] 8 mmol/L 5 - 15 mmol/L [facility] AST [Catalytic activity/Vol] 30 U/L NINF - 41 U/L [facility] Bilirubin [Mass/Vol] 0.6 mg/dL 0.3 - 1.2 mg/dL [facility] Calcium [Mass/Vol] 8.3 mg/dL Low 8.5 - 10. 5 mg/dL [facility] Chloride [Moles/Vol] 113 mmol/L High 98 - 109 mmol/L [facility] CO2 [Moles/Vol] 20 mmol/L Low 22 - 32 mmol/L [facility] Creatinine [Mass/Vol] 0.97 mg/dL 0.40 - 1.00 mg/dL [facility] Comment on above: METHOD TRACEABLE TO IDMS STANDARD EGFR Non-Race Dependent 61 - PINF [facility] Comment on above: Reported eGFR is bas ed on the CKD-EPI 2020 equation that does not use a race coefficient. Glucose [Mass/Vol] 215 mg/dL High 65 - 99 mg/dL [facility] Interpretation and review of laboratory results Abnormal [facility] Potassium [Moles/Vol] 4.2 mmol/L 3.5 - 5.0 mmol/L [facility] Protein [Mass/Vol] 5.4 g/dL Low 6.0 - 8.0 g/dL [facility] Sodium [Moles/Vol] 141 mmol/L 134 - 146 mmol/L [facility] Urea nitrogen [Mass/Vol] 28 mg/dL High 5 - 27 mg/dL [facility] EGDon 10-02-2024 Christina Noland DO - 10/02/2024 [facility] [place] [facility] Patient Name: Ashlee Banerjee Procedure Date: 10/02/2024 1:24 PM CSN: [id number] Date of : 1950 Admit Type: Inpatient Age: 73 Room: [place] [address] Gender: Female Note Status: Finalized Attending MD: Christina Noland , , Procedure: Upper GI endoscopy Indications: Melena Providers: Chirstina Noland Referring MD: Teresa Fairbanks Requestgenia Provider: Medicines: Monitored Anesthesia Care Complications: [...] a recent colonoscopy. - Follow-up with primary construction recruiter at [facility] for further management of underlying liver disease. Procedure Code(s): --- Professional --- 43442, Esophagogastroduodenosc opy, flexible, transoral; diagnostic, including collection of specimen(s) by brushing or washing, when performed (separate procedure) Diagnosis Code(s): --- Professional --- K76.6, Portal hypertension K31.89, Other diseases of stomach and duodenum K92.1, Melena (includes Hematochezia) CPT copyright 2022 [employer]. All rights reserved. The codes documented in this report are preliminary and upon survey workers supervisor review may be revised to meet current compliance requirements. Thomas Ridley, 10/02/2024 2:57:29 PM This report has been signed electronically. Number of Addenda: 0 Note Initiated On: 10/02/2024 1:24 PM [facility] EGD Study observationon 09-21 This order has been auto-finalized for image and report archival in PACs. *For full report details, please reach out to your physician. This image is visible to you in MyChart.* [facility] FOLATEon 10-02-2024 FOLIC ACID 18.6 ng/mL Normal >5.8 [facility] Comment on above: Performed By: #### P TT #### [facility] (TT) [address] [place] [address] VIR Folateon 10-02-2024 Folate [Mass/Vol] 18.6 ng/mL 5.8 - PINF ng/mL [facility] Interpretation and review of laboratory results Normal [facility] HEMOGLOBIN A1Con 10-02-2024 Glucose [Mass/Vol] 134 mg/dL Normal [facility] Comment on above: Performed By: #### P TT #### [facility] ([facility]) [address] [place] [address] VIR HbA1c (Bld) [Mass fraction] 6.3 % High 4.4-5.6 [facility] Comment on above: Result Comment: ADA Guidelines Result HgbA1c Normal : less than 5.7 % Prediabetes : 5.7 % to 6.4 % Diabetes : > 6.4 % Use with caution in patients with abnormal hemoglobin variants as the half-life of red blood cells and in vivo glycation rates are affected. Performed By: #### P TT #### [facility] ([facility]) [address] [place] [address] VIR Hemoglobin A1con 10-02-2024 Average glucose Estimated from glycated hemoglobin (Bld) [Mass/Vol] 134 mg/dL [facility] HbA1c (Bld) [Mass fraction] 6.3 % High 4.4 - 5.6 % [facility] Comment on above: ADA Guidelines Result HgbA1c Normal : less than 5.7 % Prediabetes : 5.7 % to 6.4 % Diabetes : > 6.4 % Use with caution in patients with abnormal hemoglobin variants as the half-life of red blood cells and in vivo glycation rates are affected. Interpretation and review of laboratory results Abnormal [facility] IONIZED MAGNESIUMon 10-03-19 25 Magnesium [Moles/Vol] 0.63 mmol/L Normal 0.45-0.74 [facility] Comment on above: Performed By: #### P TT #### [facility] ([facility]) [address] [place] [address] VIR IRON AND TIBCon 10-02-2024 Iron [Mass/Vol] 28 ug/dL Low 50-170 [facility] Comment on above: Performed By: #### P TT #### [facility] ([facility]) [address] [place] [address] VIR IRON BINDING 328 ug/dL Normal 250-425 [facility] Comment on above: Performed By: #### P TT #### [facility] ([facility]) [address] [place] [address] VIR IRON SATURATION 9 % SATURATION Low 15-50 [facility] Comment on above: Performed By: #### P TT #### [facility] ([facility]) [address] [place] [address] VIR Transferrin [Mass/Vol] 234 mg/dL Normal 168-336 [facility] Comment on above: Performed By: #### P TT #### [facility] ([facility]) [address] [place] [address] VIR Ionized magnesiumon 10-03-19 Interpretation and review of laboratory results Normal [facility] Magnesium Ionized ISE (Bld) [Moles/Vol] 0.63 mmol/L 0.45 - 0.74 mmol/L [facility] Iron and TIBCon 10-02-2024 Interpretation and review of laboratory results Abnormal [facility] Iron [Mass/Vol] 28 ug/dL Low 50 - 170 ug/dL [facility] Iron binding capacity [Mass/Vol] 328 ug/dL 250 - 425 ug/dL [facility] Iron saturation [Mass fraction] 9 Low [facility] Transferrin [Mass or moles/Vol] 234 mg/dL 168 - 336 mg/dL [facility] MAGNESIUMon 10-02-2024 Magnesium [Mass/Vol] 1.8 mg/dL Normal 1.8-2.6 [facility] Comment on above: Performed By: #### P TT #### [facility] ([facility]) [address] [place] [address] VIR Magnesiumon 10-02-2024 Interpretation and review of laboratory results Normal [facility] Magnesium [Mass/Vol] 1.8 mg/dL 1.8 - 2.6 mg/dL [facility] No Panel Informationon 10-02 [facility] THYROID PROFILE INCLUDES TSH FT4on 10-02-2024 Free T4 [Mass/Vol] 0.94 ng/dL Normal 0.61-1.60 [facility] Comment on above: Performed By: #### P TT #### [facility] ([facility]) [address] [place] [address] VIR TSH 5.65 uIU/mL High 0.49-4.67 [facility] Comment on above: Performed By: #### P TT #### [facility] ([facility]) [address] [place] [address] VIR Thyroid profile includes TSH FT4on 10-02-2024 Free T4 [Mass/Vol] 0.94 ng/dL 0.61 - 1. 60 ng/dL [facility] Interpretation and review of laboratory results Abnormal [facility] TSH Qn 5.65 m[IU]/L High [facility] VITAMIN B12on 10-02-2024 Cobalamin (Vitamin B12) [Mass/Vol] pg/mL High 180-914 [facility] Comment on above: Performed By: #### C BCA #### [facility] ([facility]) [address] [place] [address] VIR Vitamin B12on 10-02-2024 Cobalamin (Vitamin B12) [Mass/Vol] pg/mL High 180 - 914 pg/mL [facility] Interpretation and review of laboratory results Abnormal [facility] CBC WITH AUTO DIFFERENTIALon 10-01-2024 BASOPHILS ABSOLUTE COUNT (10*3/UL) BY AUTOMATED COUNT 0.0 10*3/uL Normal 0.0-0.2 [facility] Comment on above: Performed By: #### P INR #### [facility] ([facility]) [address] [place] [address] VIR BASOPHILS RELATIVE PERCENT BY AUTOMATED COUNT 0.7 % Normal [facility] Comment on above: Performed By: #### P INR #### [facility] ([facility]) [address] [place] [address] VIR CELLAVISION DIFFERENTIAL TYPE AUTOMATED DIFFERENTIAL Normal [facility] Comment on above: Performed By: #### P INR #### [facility] ([facility]) [address] [place] [address] VIR Eosinophils (Bld) [#/Vol] 0.2 10*3/uL Normal 0.0-0.4 [facility] Comment on above: Performed By: #### P INR #### [facility] ([facility]) [address] [place] [address] VIR EOSINOPHILS RELATIVE PERCENT BY AUTOMATED COUNT 4.4 % Normal [facility] Comment on above: Performed By: #### P INR #### [facility] ([facility]) [address] [place] [address] VIR Erythrocyte distribution width (RBC) [Ratio] 15.7 % High 11.5-15 [facility] Comment on above: Performed By: #### P INR #### [facility] ([facility]) [address] [place] [address] VIR Hematocrit (Bld) [Volume fraction] 26.3 % Low 35-47 [facility] Comment on above: Performed By: #### P INR #### [facility] ([facility]) [address] [place] [address] VIR Hemoglobin (Bld) [Mass/Vol] 8.9 g/dL Low 11.7-15.5 [facility] Comment on above: Performed By: #### P INR #### [facility] ([facility]) [address] [place] [address] VIR LYMPHOCYTES ABSOLUTE COUNT (10*3/UL) BY AUTOMATED COUNT 0.8 10*3/uL Low 1.0-3.5 [facility] Comment on above: Performed By: #### P INR #### [facility] ([facility]) [address] [place] [address] VIR LYMPHOCYTES RELATIVE PERCENT BY AUTOMATED COUNT 23.0 % Normal [facility] Comment on above: Performed By: #### P INR #### [facility] ([facility]) [address] [place] [address] VIR MCH (RBC) [Entitic mass] 29.9 pg Normal 27-34 [facility] Comment on above: Performed By: #### P INR #### [facility] ([facility]) [address] [place] [address] VIR MCHC (RBC) [Mass/Vol] 34.0 g/dL Normal 32-36 [facility] Comment on above: Performed By: #### P INR #### [facility] ([facility]) [address] [place] [address] VIR MCV (RBC) [Entitic vol] 88 fL Normal 80-100 [facility] Comment on above: Performed By: #### P INR #### [facility] ([facility]) [address] [place] [address] VIR MONOCYTES ABSOLUTE COUNT (10*3/UL) BY AUTOMATED COUNT 0.4 10*3/uL Normal 0.0-0.9 [facility] Comment on above: Performed By: #### P INR #### [facility] ([facility]) [address] [place] [address] VIR MONOCYTES RELATIVE PERCENT BY AUTOMATED COUNT 10.4 % Normal [facility] Comment on above: Performed By: #### P INR #### [facility] ([facility]) [address] [place] [address] VIR NEUTROPHILS ABSOLUTE COUNT BY AUTOMATED COUNT 2.1 10*3/uL Normal 1.5-6.6 [facility] Comment on above: Performed By: #### P INR #### [facility] ([facility]) [address] [place] [address] VIR NEUTROPHILS RELATIVE PERCENT BY AUTOMATED COUNT 61.5 % Normal [facility] Comment on above: Performed By: #### P INR #### [facility] ([facility]) [address] [place] [address] VIR Platelet mean volume (Bld) [Entitic vol] 9.6 fL Normal 7-12 [facility] Comment on above: Performed By: #### P INR #### [facility] ([facility]) [address] [place] [address] VIR Platelets (Bld) [#/Vol] 86 10*3/uL Low 150-450 [facility] Comment on above: Performed By: #### P INR #### [facility] ([facility]) [address] [facility] [address] [place] [address] VIR RBC COUNT 2.99 X10E12/L Low 3.8-5.2 [facility] Comment on above: Performed By: #### P INR #### [facility] ([facility]) [address] [facility] [address] [place] [address] VIR WBC (Bld) [#/Vol] 3.5 10*3/uL Low 4-11 [facility] Comment on above: Performed By: #### P INR #### [facility] ([facility]) [address] [facility] [address] [place] [address] VIR CBC auto differentialon 09-21 Basophils (Bld) [#/Vol] 0 10*3/uL 0.0 - 0.2 10*3/uL [facility] Basophils/100 WBC (Bld) 0.7 % [facility] Differential cell count method Nom (Bld) AUTOMATED DIFFERENTIAL [facility] Eosinophils (Bld) [#/Vol] 0.2 10*3/uL 0.0 - 0.4 10*3/uL [facility] Eosinophils/100 WBC (Bld) 4.4 % [facility] Erythrocyte distribution width (RBC) [Ratio] 15.7 % High 11.5 - 15 % [facility] Hematocrit (Bld) [Volume fraction] 26.3 % Low 35 - 47 % [facility] Hemoglobin (Bld) [Mass/Vol] 8.9 g/dL Low 11.7 - 15.5 g/dL [facility] Interpretation and review of laboratory results Abnormal [facility] Lymphocytes (Bld) [#/Vol] 0.8 10*3/uL Low 1.0 - 3.5 10*3/uL [facility] Lymphocytes/100 WBC (Bld) 23 % [facility] MCH (RBC) [Entitic mass] 29.9 pg 27 - 34 pg [facility] MCHC (RBC) [Mass/Vol] 34 g/dL 32 - 36 g/dL [facility] MCV (RBC) [Entitic vol] 88 fL 80 - 100 fL [facility] Monocytes (Bld) [#/Vol] 0.4 10*3/uL 0.0 - 0.9 10*3/uL [facility] Monocytes/100 WBC (Bld) 10.4 % [facility] Neutrophils (Bld) [#/Vol] 2.1 10*3/uL 1.5 - 6.6 10*3/uL [facility] Neutrophils/100 WBC (Bld) 61.5 % [facility] Platelet mean volume (Bld) [Entitic vol] 9.6 fL 7 - 12 fL [facility] Platelets (Bld) [#/Vol] 86 10*3/uL Low [facility] RBC (Bld) [#/Vol] 2.99 10*6/uL Low [facility] WBC LM Ql (Sput) 3.5 Low [facility] COMPREHENSIVE METABOLIC PANE Arley 10-01-2024 Albumin [Mass/Vol] 2.9 g/dL Low 3.2-5.3 [facility] Comment on above: Performed By: #### P INR #### [facility] ([facility]) [address] [place] [address] VIR ALP [Catalytic activity/Vol] 113 U/L Normal 39-130 [facility] Comment on above: Performed By: #### P INR #### [facility] ([facility]) [address] [place] [address] VIR ALT [Catalytic activity/Vol] 32 U/L High <=31 [facility] Comment on above: Performed By: #### P INR #### [facility] ([facility]) [address] [place] [address] VIR Anion gap [Moles/Vol] 7 mmol/L Normal 5-15 [facility] Comment on above: Performed By: #### P INR #### [facility] ([facility]) [address] [place] [address] VIR AST [Catalytic activity/Vol] 30 U/L Normal <=41 [facility] Comment on above: Performed By: #### P INR #### [facility] ([facility]) [address] [place] [address] VIR Bilirubin [Mass/Vol] 0.9 mg/dL Normal 0.3-1.2 [facility] Comment on above: Performed By: #### P INR #### [facility] ([facility]) [address] [place] [address] VIR Calcium [Mass/Vol] 8.4 mg/dL Low 8.5-10.5 [facility] Comment on above: Performed By: #### P INR #### [facility] ([facility]) [address] [place] [address] VIR Chloride [Moles/Vol] 114 mmol/L High 98-109 [facility] Comment on above: Performed By: #### P INR #### [facility] ([facility]) [address] [place] [address] VIR CO2 [Moles/Vol] 19 mmol/L Low 22-32 [facility] Comment on above: Performed By: #### P INR #### [facility] ([facility]) [address] [place] [address] VIR Creatinine [Mass/Vol] 1.09 mg/dL High 0.40-1.00 [facility] Comment on above: Result Comment: METH OD TRACEABLE TO IDMS STANDARD Performed By: #### P INR #### [facility] ([facility]) [address] [place] [address] VIR GFR/1.73 sq M.predicted among non-blacks MDRD (S/P/Bld) [Vol rate/Area] 53 mL/min/{1.73_m2} Low >=60 [facility] Comment on above: Result Comment: Repo rted eGFR is based on the CKD-EPI 2020 equation that does not use a race coefficient. Performed By: #### P INR #### [facility] ([facility]) [address] [place] [address] VIR Glucose [Mass/Vol] 125 mg/dL High 65-99 [facility] Comment on above: Performed By: #### P INR #### [facility] ([facility]) [address] [place] [address] VIR Potassium [Moles/Vol] 4.1 mmol/L Normal 3.5-5.0 [facility] Comment on above: Performed By: #### P INR #### [facility] ([facility]) [address] [place] [address] VIR Protein [Mass/Vol] 5.2 g/dL Low 6.0-8.0 [facility] Comment on above: Performed By: #### P INR #### [facility] ([facility]) [address] [place] [address] VIR Sodium [Moles/Vol] 140 mmol/L Normal 134-146 [facility] Comment on above: Performed By: #### P INR #### [facility] ([facility]) [address] [place] [address] VIR Urea nitrogen [Mass/Vol] 37 mg/dL High 5-27 [facility] Comment on above: Performed By: #### P INR #### [facility] ([facility]) [address] [place] [address] VIR Comprehensive metabolic pane arley 10-01-2024 Albumin [Mass/Vol] 2.9 g/dL Low 3.2 - 5.3 g/dL [facility] ALP [Catalytic activity/Vol] 113 U/L 39 - 130 U/L [facility] ALT No additional P-5'-P [Catalytic activity/Vol] 32 U/L High NINF - 31 U/L [facility] Anion gap [Moles/Vol] 7 mmol/L 5 - 15 mmol/L [facility] AST [Catalytic activity/Vol] 30 U/L NINF - 41 U/L [facility] Bilirubin [Mass/Vol] 0.9 mg/dL 0.3 - 1.2 mg/dL [facility] Calcium [Mass/Vol] 8.4 mg/dL Low 8.5 - 10. 5 mg/dL [facility] Chloride [Moles/Vol] 114 mmol/L High 98 - 109 mmol/L [facility] CO2 [Moles/Vol] 19 mmol/L Low 22 - 32 mmol/L [facility] Creatinine [Mass/Vol] 1.09 mg/dL High 0.40 - 1.00 mg/dL [facility] Comment on above: METHOD TRACEABLE TO IDIA STANDARD EGFR Non-Race Dependent 53 Low - PINF [facility] Comment on above: Reported eGFR is bas ed on the CKD-EPI 2020 equation that does not use a race coefficient. Glucose [Mass/Vol] 125 mg/dL High 65 - 99 mg/dL [facility] Interpretation and review of laboratory results Abnormal [facility] Potassium [Moles/Vol] 4.1 mmol/L 3.5 - 5.0 mmol/L [facility] Protein [Mass/Vol] 5.2 g/dL Low 6.0 - 8.0 g/dL [facility] Sodium [Moles/Vol] 140 mmol/L 134 - 146 mmol/L [facility] Urea nitrogen [Mass/Vol] 37 mg/dL High 5 - 27 mg/dL [facility] HEMOGLOBIN AND HEMATOCRIT, B LOODon 10-01-2024 Hematocrit (Bld) [Volume fraction] 27.9 % Low 35-47 [facility] Comment on above: Performed By: #### P TT #### [facility] ([facility]) [address] [place] [address] VIR Hemoglobin (Bld) [Mass/Vol] 9.4 g/dL Low 11.7-15.5 [facility] Comment on above: Performed By: #### P TT #### [facility] ([facility]) [address] [place] [address] VIR Hematocrit (Bld) [Volume fraction] 28.6 % Low 35-47 [facility] Comment on above: Performed By: #### P TT #### [facility] ([facility]) [address] [place] [address] VIR Hemoglobin (Bld) [Mass/Vol] 9.6 g/dL Low 11.7-15.5 [facility] Comment on above: Performed By: #### P TT #### [facility] ([facility]) [address] [place] [address] VIR Hemoglobin and hematocrit, b loodon 10-01-2024 Hematocrit (Bld) [Volume fraction] 27.9 % Low 35 - 47 % [facility] Hemoglobin (Bld) [Mass/Vol] 9.4 g/dL Low 11.7 - 15.5 g/dL [facility] Interpretation and review of laboratory results Abnormal [facility] Hematocrit (Bld) [Volume fraction] 28.6 % Low 35 - 47 % [facility] Hemoglobin (Bld) [Mass/Vol] 9.6 g/dL Low 11.7 - 15.5 g/dL [facility] Interpretation and review of laboratory results Abnormal [facility] IONIZED MAGNESIUMon 10-02-19 25 Magnesium [Moles/Vol] 0.57 mmol/L Normal 0.45-0.74 [facility] Comment on above: Performed By: #### P INR #### [facility] ([facility]) [address] [place] [address] VIR Ionized magnesiumon 10-02-19 Interpretation and review of laboratory results Normal [facility] Magnesium Ionized ISE (Bld) [Moles/Vol] 0.57 mmol/L 0.45 - 0.74 mmol/L [facility] MAGNESIUMon 10-01-2024 Magnesium [Mass/Vol] 1.8 mg/dL Normal 1.8-2.6 [facility] Comment on above: Performed By: #### P INR #### [facility] ([facility]) [address] [place] [address] VIR Magnesiumon 10-01-2024 Interpretation and review of laboratory results Normal [facility] Magnesium [Mass/Vol] 1.8 mg/dL 1.8 - 2.6 mg/dL [facility] No Panel Informationon 10-01 [facility] ABO Rh Repeaton 09-30-2024 ABO A [facility] Rh Nom (Bld) Positive [facility] CBC WITH AUTO DIFFERENTIALon 09-30-2024 BASOPHILS ABSOLUTE COUNT (10*3/UL) BY AUTOMATED COUNT 0.0 10*3/uL Normal 0.0-0.2 [facility] Comment on above: Performed By: #### P INR #### [facility] ([facility]) [address] [place] [address] VIR BASOPHILS RELATIVE PERCENT BY AUTOMATED COUNT 0.7 % Normal [facility] Comment on above: Performed By: #### P INR #### [facility] ([facility]) [address] [place] [address] VIR CELLAVISION DIFFERENTIAL TYPE AUTOMATED DIFFERENTIAL Normal [facility] Comment on above: Performed By: #### P INR #### [facility] ([facility]) [address] [place] [address] VIR Eosinophils (Bld) [#/Vol] 0.1 10*3/uL Normal 0.0-0.4 [facility] Comment on above: Performed By: #### P INR #### [facility] ([facility]) [address] [place] [address] VIR EOSINOPHILS RELATIVE PERCENT BY AUTOMATED COUNT 3.2 % Normal [facility] Comment on above: Performed By: #### P INR #### [facility] ([facility]) [address] [place] [address] VIR Erythrocyte distribution width (RBC) [Ratio] 15.1 % High 11.5-15 [facility] Comment on above: Performed By: #### P INR #### [facility] ([facility]) [address] [facility] [address] [place] [address] VIR Hematocrit (Bld) [Volume fraction] 26.2 % Low 35-47 [facility] Comment on above: Performed By: #### P INR #### [facility] ([facility]) [address] [facility] [address] [place] [address] VIR Hemoglobin (Bld) [Mass/Vol] 8.9 g/dL Low 11.7-15.5 [facility] Comment on above: Performed By: #### P INR #### [facility] ([facility]) [address] [place] [address] VIR LYMPHOCYTES ABSOLUTE COUNT (10*3/UL) BY AUTOMATED COUNT 0.5 10*3/uL Low 1.0-3.5 [facility] Comment on above: Performed By: #### P INR #### [facility] ([facility]) [address] [place] [address] VIR LYMPHOCYTES RELATIVE PERCENT BY AUTOMATED COUNT 15.3 % Normal [facility] Comment on above: Performed By: #### P INR #### [facility] ([facility]) [address] [place] [address] VIR MCH (RBC) [Entitic mass] 30.0 pg Normal 27-34 [facility] Comment on above: Performed By: #### P INR #### [facility] ([facility]) [address] [place] [address] VIR MCHC (RBC) [Mass/Vol] 34.2 g/dL Normal 32-36 [facility] Comment on above: Performed By: #### P INR #### [facility] ([facility]) [address] [place] [address] VIR MCV (RBC) [Entitic vol] 88 fL Normal 80-100 [facility] Comment on above: Performed By: #### P INR #### [facility] ([facility]) [address] [place] [address] VIR MONOCYTES ABSOLUTE COUNT (10*3/UL) BY AUTOMATED COUNT 0.4 10*3/uL Normal 0.0-0.9 [facility] Comment on above: Performed By: #### P INR #### [facility] ([facility]) [address] [facility] [address] [place] [address] VIR MONOCYTES RELATIVE PERCENT BY AUTOMATED COUNT 11.7 % Normal [facility] Comment on above: Performed By: #### P INR #### [facility] ([facility]) [address] [place] [address] VIR NEUTROPHILS ABSOLUTE COUNT BY AUTOMATED COUNT 2.4 10*3/uL Normal 1.5-6.6 [facility] Comment on above: Performed By: #### P INR #### [facility] ([facility]) [address] [facility] [address] [place] [address] VIR NEUTROPHILS RELATIVE PERCENT BY AUTOMATED COUNT 69.1 % Normal [facility] Comment on above: Performed By: #### P INR #### [facility] ([facility]) [address] [place] [address] VIR Platelet mean volume (Bld) [Entitic vol] 9.7 fL Normal 7-12 [facility] Comment on above: Performed By: #### P INR #### [facility] ([facility]) [address] [place] [address] VIR Platelets (Bld) [#/Vol] 71 10*3/uL Low 150-450 [facility] Comment on above: Performed By: #### P INR #### [facility] ([facility]) [address] [place] [address] VIR RBC COUNT 2.98 [id number]/L Low 3.8-5.2 [facility] Comment on above: Performed By: #### P INR #### [facility] ([facility]) [address] [place] [address] VIR WBC (Bld) [#/Vol] 3.5 10*3/uL Low 4-11 [facility] Comment on above: Performed By: #### P INR #### [facility] ([facility]) [address] [place] [address] VIR CBC auto differentialon 09-21 Basophils (Bld) [#/Vol] 0 10*3/uL 0.0 - 0.2 10*3/uL [facility] Basophils/100 WBC (Bld) 0.7 % [facility] Differential cell count method Nom (Bld) AUTOMATED DIFFERENTIAL [facility] Eosinophils (Bld) [#/Vol] 0.1 10*3/uL 0.0 - 0.4 10*3/uL [facility] Eosinophils/100 WBC (Bld) 3.2 % [facility] Erythrocyte distribution width (RBC) [Ratio] 15.1 % High 11.5 - 15 % [facility] Hematocrit (Bld) [Volume fraction] 26.2 % Low 35 - 47 % [facility] Hemoglobin (Bld) [Mass/Vol] 8.9 g/dL Low 11.7 - 15.5 g/dL [facility] Interpretation and review of laboratory results Abnormal [facility] Lymphocytes (Bld) [#/Vol] 0.5 10*3/uL Low 1.0 - 3.5 10*3/uL [facility] Lymphocytes/100 WBC (Bld) 15.3 % [facility] MCH (RBC) [Entitic mass] 30 pg 27 - 34 pg [facility] MCHC (RBC) [Mass/Vol] 34.2 g/dL 32 - 36 g/dL [facility] MCV (RBC) [Entitic vol] 88 fL 80 - 100 fL [facility] Monocytes (Bld) [#/Vol] 0.4 10*3/uL 0.0 - 0.9 10*3/uL [facility] Monocytes/100 WBC (Bld) 11.7 % [facility] Neutrophils (Bld) [#/Vol] 2.4 10*3/uL 1.5 - 6.6 10*3/uL [facility] Neutrophils/100 WBC (Bld) 69.1 % [facility] Platelet mean volume (Bld) [Entitic vol] 9.7 fL 7 - 12 fL [facility] Platelets (Bld) [#/Vol] 71 10*3/uL Low [facility] RBC (Bld) [#/Vol] 2.98 10*6/uL Low [facility] WBC LM Ql (Sput) 3.5 Low [facility] COMPREHENSIVE METABOLIC PANE Arley 09-30-2024 Albumin [Mass/Vol] 3.0 g/dL Low 3.2-5.3 [facility] Comment on above: Performed By: #### P INR #### [facility] ([facility]) [address] [place] [address] VIR ALP [Catalytic activity/Vol] 123 U/L Normal 39-130 [facility] Comment on above: Performed By: #### P INR #### [facility] ([facility]) [address] [place] [address] VIR ALT [Catalytic activity/Vol] 38 U/L High <=31 [facility] Comment on above: Performed By: #### P INR #### [facility] ([facility]) [address] [place] [address] VIR Anion gap [Moles/Vol] 9 mmol/L Normal 5-15 [facility] Comment on above: Performed By: #### P INR #### [facility] ([facility]) [address] [place], [place] [address], [place] [address] VIR AST [Catalytic activity/Vol] 36 U/L Normal <=41 [facility] Comment on above: Performed By: #### P INR #### [facility] ([facility]) [address] [place] [address] VIR Bilirubin [Mass/Vol] 1.0 mg/dL Normal 0.3-1.2 [facility] Comment on above: Performed By: #### P INR #### [facility] ([facility]) [address] [place] [address] VIR Calcium [Mass/Vol] 8.3 mg/dL Low 8.5-10.5 [facility] Comment on above: Performed By: #### P INR #### [facility] ([facility]) [address] [place] [address] VIR Chloride [Moles/Vol] 116 mmol/L High 98-109 [facility] Comment on above: Performed By: #### P INR #### [facility] ([facility]) [address] [place] [address] VIR CO2 [Moles/Vol] 17 mmol/L Low 22-32 [facility] Comment on above: Performed By: #### P INR #### [facility] ([facility]) [address] [place] [address] VIR Creatinine [Mass/Vol] 1.48 mg/dL High 0.40-1.00 [facility] Comment on above: Result Comment: METH OD TRACEABLE TO IDMS STANDARD Performed By: #### P INR #### [facility] ([facility]) [address] [place] [address] VIR GFR/1.73 sq M.predicted among non-blacks MDRD (S/P/Bld) [Vol rate/Area] 37 mL/min/{1.73_m2} Low >=60 [facility] Comment on above: Result Comment: Repo rted eGFR is based on the CKD-EPI 2020 equation that does not use a race coefficient. Performed By: #### P INR #### [facility] ([facility]) [address] [place] [address] VIR Glucose [Mass/Vol] 203 mg/dL High 65-99 [facility] Comment on above: Performed By: #### P INR #### [facility] ([facility]) [address] [place] [address] VIR Potassium [Moles/Vol] 4.3 mmol/L Normal 3.5-5.0 [facility] Comment on above: Performed By: #### P INR #### [facility] ([facility]) [address] [place] [address] VIR Protein [Mass/Vol] 5.3 g/dL Low 6.0-8.0 [facility] Comment on above: Performed By: #### P INR #### [facility] ([facility]) [address] [place] [address] VIR Sodium [Moles/Vol] 142 mmol/L Normal 134-146 [facility] Comment on above: Performed By: #### P INR #### [facility] ([facility]) [address] [place] [address] VIR Urea nitrogen [Mass/Vol] 50 mg/dL High 5-27 [facility] Comment on above: Performed By: #### P INR #### [facility] ([facility]) [address] [place] [address] VIR Comprehensive metabolic pane arley 09-30-2024 Albumin [Mass/Vol] 3 g/dL Low 3.2 - 5.3 g/dL [facility] ALP [Catalytic activity/Vol] 123 U/L 39 - 130 U/L [facility] ALT No additional P-5'-P [Catalytic activity/Vol] 38 U/L High NINF - 31 U/L [facility] Anion gap [Moles/Vol] 9 mmol/L 5 - 15 mmol/L [facility] AST [Catalytic activity/Vol] 36 U/L NINF - 41 U/L [facility] Bilirubin [Mass/Vol] 1 mg/dL 0.3 - 1.2 mg/dL [facility] Calcium [Mass/Vol] 8.3 mg/dL Low 8.5 - 10. 5 mg/dL [facility] Chloride [Moles/Vol] 116 mmol/L High 98 - 109 mmol/L [facility] CO2 [Moles/Vol] 17 mmol/L Low 22 - 32 mmol/L [facility] Creatinine [Mass/Vol] 1.48 mg/dL High 0.40 - 1.00 mg/dL [facility] Comment on above: METHOD TRACEABLE TO IDIA STANDARD EGFR Non-Race Dependent 37 Low - PINF [facility] Comment on above: Reported eGFR is bas ed on the CKD-EPI 2020 equation that does not use a race coefficient. Glucose [Mass/Vol] 203 mg/dL High 65 - 99 mg/dL [facility] Interpretation and review of laboratory results Abnormal [facility] Potassium [Moles/Vol] 4.3 mmol/L 3.5 - 5.0 mmol/L [facility] Protein [Mass/Vol] 5.3 g/dL Low 6.0 - 8.0 g/dL [facility] Sodium [Moles/Vol] 142 mmol/L 134 - 146 mmol/L [facility] Urea nitrogen [Mass/Vol] 50 mg/dL High 5 - 27 mg/dL [facility] HEMOGLOBIN AND HEMATOCRIT, B LOODon 09-30-2024 Hematocrit (Bld) [Volume fraction] 26.8 % Low 35-47 [facility] Comment on above: Performed By: #### P INR #### [facility] ([facility]) [address] [place] [address] VIR Hemoglobin (Bld) [Mass/Vol] 9.1 g/dL Low 11.7-15.5 [facility] Comment on above: Performed By: #### P INR #### [facility] ([facility]) [address] [place] [address] VIR Hematocrit (Bld) [Volume fraction] 28.4 % Low 35-47 [facility] Comment on above: Performed By: #### P INR #### [facility] ([facility]) [address] [place] [address] VIR Hemoglobin (Bld) [Mass/Vol] 9.7 g/dL Low 11.7-15.5 [facility] Comment on above: Performed By: #### P INR #### [facility] - [facility] ([facility]) [address] [place] [address] VIR Hematocrit (Bld) [Volume fraction] 24.4 % Low 35-47 [facility] Comment on above: Performed By: #### P INR #### [facility] ([facility]) [address] [place] [address] VIR Hemoglobin (Bld) [Mass/Vol] 8.3 g/dL Low 11.7-15.5 [facility] Comment on above: Performed By: #### P INR #### [facility] ([facility]) [address] [place] [address] VIR Hemoglobin and hematocrit, b loodon 09-30-2024 Hematocrit (Bld) [Volume fraction] 26.8 % Low 35 - 47 % [facility] Hemoglobin (Bld) [Mass/Vol] 9.1 g/dL Low 11.7 - 15.5 g/dL [facility] Interpretation and review of laboratory results Abnormal [facility] Hematocrit (Bld) [Volume fraction] 28.4 % Low 35 - 47 % [facility] Hemoglobin (Bld) [Mass/Vol] 9.7 g/dL Low 11.7 - 15.5 g/dL [facility] Interpretation and review of laboratory results Abnormal [facility] Hematocrit (Bld) [Volume fraction] 24.4 % Low 35 - 47 % [facility] Hemoglobin (Bld) [Mass/Vol] 8.3 g/dL Low 11.7 - 15.5 g/dL [facility] Interpretation and review of laboratory results Abnormal [facility] IONIZED CALCIUMon 09-30-2024 IONIZED CALCIUM - ICAN 4.6 mg/dL Normal 4.5-5.3 [facility] Comment on above: Performed By: #### I CA #### [facility] ([facility]) [address] [place] [address] VIR Ionized calciumon 09-30-2024 Calcium.ionized ISE [Moles/Vol] 4.6 mg/dL 4.5 - 5.3 mg/dL [facility] Interpretation and review of laboratory results Normal [facility] MAGNESIUMon 09-30-2024 Magnesium [Mass/Vol] 2.0 mg/dL Normal 1.8-2.6 [facility] Comment on above: Performed By: #### P INR #### [facility] ([facility]) [address] [place] [address] VIR Magnesiumon 09-30-2024 Interpretation and review of laboratory results Normal [facility] Magnesium [Mass/Vol] 2 mg/dL 1.8 - 2.6 mg/dL [facility] No Panel Informationon 09-30 [facility] Procalcitoninon 09-30-2024 Interpretation and review of laboratory results Abnormal [facility] Procalcitonin IA [Mass/Vol] 1.48 ng/mL High NINF - 0.05 ng/mL [facility] <0.50 ng/mL - Low ri sk of severe sepsis and/or septic shock. <2.00 ng/mL - Recommend retesting within 6-24 hours. >2.00 ng/mL - High risk of sepsis and/or septic shock. [facility] APTTon 09-29-2024 aPTT Coag (PPP) [Time] 31 s [facility] Interpretation and review of laboratory results Normal [facility] aPTT Coag (Bld) [Time] 31 s Normal 26-37 [facility] Comment on above: Performed By: #### P TT #### [facility] ([facility]) [address] [place] [address] VIR aPTT Coag (Bld) [Time] 33.6 s Normal 26.8-34.8 [facility] Comment on above: Result Comment: IV Heparin Therapy Range: 62.0-94.0 Performed By: #### P T, PTT #### [facility] [address] [place] [address] Incident Engineer: Wilver Calvillo MD Ammoniaon 09-29-2024 Ammonia (P) [Moles/Vol] 23 umol/L 11 - umol/L [facility] Ammonia (P) [Moles/Vol] 23 umol/L Normal [facility] Comment on above: Performed By: #### L ACDS #### [facility] [address] [place] [address] Incident Engineer: Wilver Calvillo MD BEDSIDE GLUCOSEon 09-29-2024 Glucose [Mass/Vol] 143 mg/dL High 65-99 [facility] Comment on above: Performed By: #### B EDG #### [facility] ([facility]) [address] [place] [address] VIR Bedside Glucose *Place/Obtai n serum glucose if >500 per glucometer.on 09-29-2024 Glucose [Mass/Vol] 143 mg/dL High 65 - 99 mg/dL [facility] Interpretation and review of laboratory results Abnormal [facility] Blood occult stool #1on Date, Stool #1 TIMED [facility] Hemoglobin.gastroin testinal spec 1 Ql (Stl) Positive Abnormal NEGATIVE [facility] Interpretation and review of laboratory results Abnormal [facility] Time, Stool #1 645 [facility] CBC WITH AUTO DIFFERENTIALon 09-29-2024 Band form neutrophils/100 WBC (Bld) 5 % Normal [facility] Comment on above: Result Comment: This is an appended report. These results have been appended to a previously preliminary verified report. Performed By: #### C BCA #### [facility] ([facility]) [address] [place] [address] VIR CELLAVISION ATYPICAL LYMPHOCYTES RELATIVE PERCENT BY MANUAL COUNT 2 % Normal [facility] Comment on above: Result Comment: This is an appended report. These results have been appended to a previously preliminary verified report. Performed By: #### C BCA #### [facility] ([facility]) [address] [place] [address] VIR CELLAVISION ROSA CELLS IN BLOOD BY LIGHT MICROSCOPY 1+ Normal [facility] Comment on above: Result Comment: This is an appended report. These results have been appended to a previously preliminary verified report. Performed By: #### C BCA #### [facility] ([facility]) [address] [place] [address] VIR CELLAVISION DIFFERENTIAL TYPE MANUAL DIFFERENTIAL Normal [facility] Comment on above: Result Comment: This is an appended report. These results have been appended to a previously preliminary verified report. Performed By: #### C BCA #### [facility] ([facility]) [address] [place] [address] VIR CELLAVISION ELLIPTOCYTES IN BLOOD BY LIGHT MICROSCOPY 1+ Normal [facility] Comment on above: Result Comment: This is an appended report. These results have been appended to a previously preliminary verified report. Performed By: #### C BCA #### [facility] ([facility]) [address] [place] [address] VIR CELLAVISION EOSINOPHILS ABSOLUTE COUNT (10*3/UL) BY MANUAL COUNT 0.1 10*3/uL Normal 0.0-0.4 [facility] Comment on above: Result Comment: This is an appended report. These results have been appended to a previously preliminary verified report. Performed By: #### C BCA #### [facility] ([facility]) [address] [place] [address] VIR CELLAVISION EOSINOPHILS PERCENT BY MANUAL COUNT 2 % Normal [facility] Comment on above: Result Comment: This is an appended report. These results have been appended to a previously preliminary verified report. Performed By: #### C BCA #### [facility] ([facility]) [address] [place] [address] VIR CELLAVISION LYMPHOCYTES ABSOLUTE COUNT (10*3/UL) BY MANUAL COUNT 0.9 10*3/uL Low 1.0-3.5 [facility] Comment on above: Result Comment: This is an appended report. These results have been appended to a previously preliminary verified report. Performed By: #### C BCA #### [facility] ([facility]) [address] [place] [address] VIR CELLAVISION LYMPHOCYTES RELATIVE PERCENT BY MANUAL COUNT 19 % Normal [facility] Comment on above: Result Comment: This is an appended report. These results have been appended to a previously preliminary verified report. Performed By: #### C BCA #### [facility] ([facility]) [address] [place] [address] VIR CELLAVISION MONOCYTES ABSOLUTE COUNT (10*3/UL) IN BLOOD BY MANUAL COUNT 0.3 10*3/uL Normal 0.0-0.9 [facility] Comment on above: Result Comment: This is an appended report. These results have been appended to a previously preliminary verified report. Performed By: #### C BCA #### [facility] ([facility]) [address] [place] [address] VIR CELLAVISION MONOCYTES RELATIVE PERCENT BY MANUAL COUNT 8 % Normal [facility] Comment on above: Result Comment: This is an appended report. These results have been appended to a previously preliminary verified report. Performed By: #### C BCA #### [facility] ([facility]) [address] [place] [address] VIR CELLAVISION NEUTROPHILS ABSOLUTE COUNT BY MANUAL COUNT 2.7 10*3/uL Normal 1.5-6.6 [facility] Comment on above: Result Comment: This is an appended report. These results have been appended to a previously preliminary verified report. Performed By: #### C BCA #### [facility] ([facility]) [address] [place] [address] VIR CELLAVISION NEUTROPHILS RELATIVE PERCENT BY MANUAL COUNT 64 % Normal [facility] Comment on above: Result Comment: This is an appended report. These results have been appended to a previously preliminary verified report. Performed By: #### C BCA #### [facility] ([facility]) [address] [place] [address] VIR Erythrocyte distribution width (RBC) [Ratio] 15.2 % High 11.5-15 [facility] Comment on above: Performed By: #### C BCA #### [facility] ([facility]) [address] [place] [address] VIR Hematocrit (Bld) [Volume fraction] 24.4 % Low 35-47 [facility] Comment on above: Performed By: #### C BCA #### [facility] ([facility]) [address] [place] [address] VIR Hemoglobin (Bld) [Mass/Vol] 8.3 g/dL Low 11.7-15.5 [facility] Comment on above: Performed By: #### C BCA #### [facility] ([facility]) [address] [place] [address] VIR MCH (RBC) [Entitic mass] 29.7 pg Normal 27-34 [facility] Comment on above: Performed By: #### C BCA #### [facility] ([facility]) [address] [place] [address] VIR MCHC (RBC) [Mass/Vol] 34.0 g/dL Normal 32-36 [facility] Comment on above: Performed By: #### C BCA #### [facility] ([facility]) [address] [place] [address] VIR MCV (RBC) [Entitic vol] 87 fL Normal 80-100 [facility] Comment on above: Performed By: #### C BCA #### [facility] ([facility]) [address] [place] [address] VIR Platelet mean volume (Bld) [Entitic vol] 9.8 fL Normal 7-12 [facility] Comment on above: Performed By: #### C BCA #### [facility] ([facility]) [address] [place] [address] VIR Platelets (Bld) [#/Vol] 61 10*3/uL Low 150-450 [facility] Comment on above: Performed By: #### C BCA #### [facility] ([facility]) [address] [place] [address] VIR RBC COUNT 2.79 X10E12/L Low 3.8-5.2 [facility] Comment on above: Performed By: #### C BCA #### [facility] ([facility]) [address] [place] [address] VIR WBC (Bld) [#/Vol] 4.0 10*3/uL Normal 4-11 [facility] Comment on above: Performed By: #### C BCA #### [facility] ([facility]) [address] [place] [address] VIR CBC auto differentialon 05-0 Band form neutrophils/100 WBC (Bld) 5 % [facility] Comment on above: This is an appended report. These results have been appended to a previously preliminary verified report. [place] cells LM Ql (Bld) 1+ [facility] Comment on above: This is an appended report. These results have been appended to a previously preliminary verified report. Differential cell count method Nom (Bld) MANUAL DIFFERENTIAL [facility] Comment on above: This is an appended report. These results have been appended to a previously preliminary verified report. Elliptocytes LM Ql (Bld) 1+ [facility] Comment on above: This is an appended report. These results have been appended to a previously preliminary verified report. Eosinophils (Bld) [#/Vol] 0.1 10*3/uL 0.0 - 0.4 10*3/uL [facility] Comment on above: This is an appended report. These results have been appended to a previously preliminary verified report. Eosinophils/100 WBC (Bld) 2 % [facility] Comment on above: This is an appended report. These results have been appended to a previously preliminary verified report. Erythrocyte distribution width (RBC) [Ratio] 15.2 % High 11.5 - 15 % [facility] Hematocrit (Bld) [Volume fraction] 24.4 % Low 35 - 47 % [facility] Hemoglobin (Bld) [Mass/Vol] 8.3 g/dL Low 11.7 - 15.5 g/dL [facility] Interpretation and review of laboratory results Abnormal [facility] Lymphocytes (Bld) [#/Vol] 0.9 10*3/uL Low 1.0 - 3.5 10*3/uL [facility] Comment on above: This is an appended report. These results have been appended to a previously preliminary verified report. MCH (RBC) [Entitic mass] 29.7 pg 27 - 34 pg [facility] MCHC (RBC) [Mass/Vol] 34 g/dL 32 - 36 g/dL [facility] MCV (RBC) [Entitic vol] 87 fL 80 - 100 fL [facility] Monocytes (Bld) [#/Vol] 0.3 10*3/uL 0.0 - 0.9 10*3/uL [facility] Comment on above: This is an appended report. These results have been appended to a previously preliminary verified report. Monocytes/100 WBC (Bld) 8 % [facility] Comment on above: This is an appended report. These results have been appended to a previously preliminary verified report. Neutrophils (Bld) [#/Vol] 2.7 10*3/uL 1.5 - 6.6 10*3/uL [facility] Comment on above: This is an appended report. These results have been appended to a previously preliminary verified report. Neutrophils/100 WBC (Bld) 64 % [facility] Comment on above: This is an appended report. These results have been appended to a previously preliminary verified report. Platelet mean volume (Bld) [Entitic vol] 9.8 fL 7 - 12 fL [facility] Platelets (Bld) [#/Vol] 61 10*3/uL Low [facility] RBC (Bld) [#/Vol] 2.79 10*6/uL Low [facility] Variant lymphocytes/100 WBC (Bld) 19 % [facility] Comment on above: This is an appended report. These results have been appended to a previously preliminary verified report. Variant lymphocytes/100 WBC (Bld) 2 % [facility] Comment on above: This is an appended report. These results have been appended to a previously preliminary verified report. WBC LM Ql (Sput) 4 [facility] Basophils (Bld) [#/Vol] 0 10*3/uL [facility] Basophils/100 WBC (Bld) 0 % 0 - 2 % [facility] Eosinophils (Bld) [#/Vol] 0 10*3/uL [facility] Eosinophils/100 WBC (Bld) 0 % Low 1 - 4 % [facility] Erythrocyte distribution width (RBC) [Ratio] 14.3 % 11.8 - 14.4 % [facility] Hematocrit (Bld) [Volume fraction] 21.7 % Low 36.3 - 47.1 % [facility] Hemoglobin (Bld) [Mass/Vol] 6.8 g/dL Critically low 11.9 - 15.1 g/dL [facility] Immature granulocytes (Bld) [#/Vol] 0 10*3/uL [facility] Immature granulocytes/100 WBC (Bld) 0 % 0 [facility] Interpretation and review of laboratory results Abnormal [facility] Lymphocytes/100 WBC (Bld) 13 % Low 24 - 43 % [facility] Lymphocytes/100 WBC (Bld) 0.95 % Low [facility] MCH (RBC) [Entitic mass] 29.8 pg 25.2 - 33.5 pg [facility] MCHC (RBC) [Mass/Vol] 31.3 g/dL 28.4 - 34.8 g/dL [facility] MCV (RBC) [Entitic vol] 95.2 fL 82.6 - 102.9 fL [facility] [place] [facility] Monocytes/100 WBC (Bld) 12 % 3 - 12 % [facility] Monocytes/100 WBC (Bld) 0.88 % [facility] [place] [facility] Morphology Padilla (Bld) [Interp] Platelet scan shows Decreased Platelets [facility] Neutrophils/100 WBC (Bld) 75 % High 36 - 65 % [facility] Nucleated RBC/100 WBC (Bld) [Ratio] 0 % 0.0 per 100 WBC [facility] Platelet, Fluorescence 91 Low [facility] Platelets (Bld) [#/Vol] See Reflexed IPF Result [facility] Platelets reticulated/100 platelets Auto (Bld) 3.7 % 1.1 - 10.3 % [facility] RBC (Bld) [#/Vol] 2.28 10*6/uL Low 3.95 - 5.1 1 m/uL [facility] Segmented neutrophils/100 WBC (Bld) 5.47 % [facility] WBC other (Bld) [#/Vol] 7.3 [facility] CBC with Diffon 09-29-2024 Abs. Basophil 0.00 k/uL Normal 0.00-0.20 [facility] Comment on above: Performed By: #### U RC #### [facility] [address] [place], [place] [id number] Incident Engineer: Beto Farah MD [facility] [address] [place] [address] [place] [address] Incident Engineer: Wilver Calvillo MD Abs.Imm.Granulocyte 0.00 k/uL Normal 0.00-0.30 [facility] Comment on above: Performed By: #### U RC #### [facility] [address], [place] [id number] Incident Engineer: Beto Farah MD [facility] [address] [place] [address] [place] [address] Incident Engineer: Wilver Calvillo MD Abs.Neutrophil (Seg) 5.47 k/uL Normal 1.50-8.10 [facility] Comment on above: Performed By: #### U RC #### [address] [place] [address] Incident Engineer: Beto Farah MD [facility] [address] [place] [address] [address]. [place] [id number] Incident Engineer: Wilver Calvillo MD Basophils/100 WBC (Bld) 0 % Normal 0-2 [facility] Comment on above: Performed By: #### U RC #### [address] [address] Incident Engineer: Beto Farah MD [facility] [address] [place] [address] Dr. [place] [id number] Incident Engineer: Wilver Calvillo MD Eosinophils (Bld) [#/Vol] 0.00 10*3/uL Normal 0.00-0.44 [facility] Comment on above: Performed By: #### U RC #### [address] [address] Incident Engineer: Beto Farah MD [address] [place] [address] Incident Engineer: Wilver Calvillo MD Eosinophils/100 WBC (Bld) 0 % Low 1-4 [facility] Comment on above: Performed By: #### U RC #### [address] [address] Incident Engineer: Beto Farah MD [facility] [address] [place] [address] [place] [address] Incident Engineer: Wilver Calvillo MD Immature granulocytes/100 WBC (Bld) 0 % Normal 0 [facility] Comment on above: Performed By: #### U RC #### [address] [address] Incident Engineer: Beto Farah MD [facility] [address] [place] [address] [place] [address] Incident Engineer: Wilver Calvillo MD Lymphocytes (Bld) [#/Vol] 0.95 10*3/uL Low 1.10-3.70 [facility] Comment on above: Performed By: #### U RC #### [address] [place] [address] Incident Engineer: Beto Farah MD [facility] [address] [place] [address] [place]. [place], [place] [id number] Incident Engineer: Wilver Calvillo MD Lymphocytes/100 WBC (Bld) 13 % Low 24-43 [facility] Comment on above: Performed By: #### U RC #### [address] [address] Incident Engineer: Beto Farah MD [facility] [address] [place] [address] Dr. [place] [phone] Incident Engineer: Wilver Calvillo MD Monocytes (Bld) [#/Vol] 0.88 10*3/uL Normal 0.10-1.20 [facility] Comment on above: Performed By: #### U RC #### [facility] [address] [place] [address] Incident Engineer: Beto Farah MD [facility] [address] [place] [address] [place] [address] Incident Engineer: Wilver Calvillo MD Monocytes/100 WBC (Bld) 12 % Normal 3-12 [facility] Comment on above: Performed By: #### U RC #### [address] [address] Incident Engineer: Beto Farah MD [facility] [address] [place] [address] [place]. [place], [place] [id number] Incident Engineer: Wilver Calvillo MD Morphology Padilla (Bld) [Interp] Platelet scan shows Decreased Platelets Normal [facility] Comment on above: Performed By: #### U RC #### [facility] [address] [place] [address] Incident Engineer: Beto Farah MD [facility] [address] [place] [address] Dr. [place], [place] [id number] Incident Engineer: Wilver Calvillo MD Neutrophil (Seg) 75 % High 36-65 [facility] Comment on above: Performed By: #### U RC #### [address] [address] Incident Engineer: Beto Farah MD [facility] [address] [place] [address] Dr. [place] [id number] Incident Engineer: Wilver Calivllo MD Erythrocyte distribution width (RBC) [Ratio] 14.3 % Normal 11.8-14.4 [facility] Comment on above: Performed By: #### U RC #### [address] [address] Incident Engineer: Beto Farah MD [facility] [address] [place] [address] Dr. [place] [phone] Incident Engineer: Wilver Calvillo MD Hematocrit (Bld) [Volume fraction] 21.7 % Low 36.3-47.1 [facility] Comment on above: Performed By: #### U RC #### [address] [address] Incident Engineer: Beto Farah MD [facility] [address] [place] [address] Dr. [place] [id number] Incident Engineer: Wilver Calvillo MD Hemoglobin (Bld) [Mass/Vol] 6.8 g/dL Critically low 11.9-15.1 [facility] Comment on above: Performed By: #### U RC #### [facility] [address] [place] [address] Incident Engineer: Beto Farah MD [facility] [address] [place] [address] Dr. [place] [id number] Incident Engineer: Wilver Calvillo MD MCH (RBC) [Entitic mass] 29.8 pg Normal 25.2-33.5 [facility] Comment on above: Performed By: #### U RC #### [address] [address] Incident Engineer: Beto Farah MD [facility] [address] [place] [address] [place] [phone] Incident Engineer: Wilver Calvillo MD MCHC (RBC) [Mass/Vol] 31.3 g/dL Normal 28.4-34.8 [facility] Comment on above: Performed By: #### U RC #### [address] [address] Incident Engineer: Beto Farah MD [address] [place] [phone] Incident Engineer: Wilver Calvillo MD MCV (RBC) [Entitic vol] 95.2 fL Normal 82.6-102.9 [facility] Comment on above: Performed By: #### U RC #### [address] [address] Incident Engineer: Beto Farah MD [address] [place] [address] Incident Engineer: Wilver Calvillo MD NRBC Automated 0.0 per 100 WBC Normal 0.0 [facility] Comment on above: Performed By: #### U RC #### [address] [address] Incident Engineer: Beto Farah MD [address] [place] [phone] Incident Engineer: Wilver Calvillo MD Platelet Count See Reflexed IPF Result Normal 138-453 [facility] Comment on above: Performed By: #### U RC #### [address] [address] Incident Engineer: Beto Farah MD [address] [place], [place] [phone] Incident Engineer: Wilver Calvillo MD Platelet, Fluoresc. 91 k/uL Low 138-453 [facility] Comment on above: Performed By: #### U RC #### [facility] [address] [place] [address] Incident Engineer: Beto Farah MD [address] [place] [phone] Incident Engineer: Wilver Calvillo MD PLT, Immature Fract. 3.7 % Normal 1.1-10.3 [facility] Comment on above: Performed By: #### U RC #### [address] [address] Incident Engineer: Beto Farah MD [address] [place] [phone] Incident Engineer: Wilver Calvillo MD RBC (Bld) [#/Vol] 2.28 10*6/uL Low 3.95-5.11 [facility] Comment on above: Performed By: #### U RC #### [facility] [address] [place] [address] Incident Engineer: Beto Farah MD [address] [place] [address] Incident Engineer: Wilver Calvillo MD WBC (Bld) [#/Vol] 7.3 10*3/uL Normal 3.5-11.3 [facility] Comment on above: Performed By: #### U RC #### [address] [address] Incident Engineer: Beto Farah MD [address] [place], [place] [phone] Incident Engineer: Wilver Calvillo MD COMPREHENSIVE METABOLIC PANE Arley 09-29-2024 Albumin [Mass/Vol] 2.7 g/dL Low 3.2-5.3 [facility] Comment on above: Performed By: #### C MP #### [facility] ([facility]) [address] [place] [address] VIR ALP [Catalytic activity/Vol] 121 U/L Normal 39-130 [facility] Comment on above: Performed By: #### C MP #### [facility] ([facility]) [address] [place] [address] VIR ALT [Catalytic activity/Vol] 39 U/L High <=31 [facility] Comment on above: Performed By: #### C MP #### [facility] ([facility]) [address] [place] [address] VIR Anion gap [Moles/Vol] 10 mmol/L Normal 5-15 [facility] Comment on above: Performed By: #### C MP #### [facility] ([facility]) [address] [place] [address] VIR AST [Catalytic activity/Vol] 40 U/L Normal <=41 [facility] Comment on above: Performed By: #### C MP #### [facility] ([facility]) [address] [place] [address] VIR Bilirubin [Mass/Vol] 0.9 mg/dL Normal 0.3-1.2 [facility] Comment on above: Performed By: #### C MP #### [facility] ([facility]) [address] [place] [address] VIR Calcium [Mass/Vol] 7.2 mg/dL Low 8.5-10.5 [facility] Comment on above: Performed By: #### C MP #### [facility] ([facility]) [address] [place] [address] VIR Chloride [Moles/Vol] 120 mmol/L High 98-109 [facility] Comment on above: Performed By: #### C MP #### [facility] ([facility]) [address] [place] [address] VIR CO2 [Moles/Vol] 16 mmol/L Low 22-32 [facility] Comment on above: Performed By: #### C MP #### [facility] ([facility]) [address] [place] [address] VIR Creatinine [Mass/Vol] 1.54 mg/dL High 0.40-1.00 [facility] Comment on above: Result Comment: METH OD TRACEABLE TO IDMS STANDARD Performed By: #### C MP #### [facility] ([facility]) [address] [place] [address] VIR GFR/1.73 sq M.predicted among non-blacks MDRD (S/P/Bld) [Vol rate/Area] 35 mL/min/{1.73_m2} Low >=60 [facility] Comment on above: Result Comment: Repo rted eGFR is based on the CKD-EPI 2020 equation that does not use a race coefficient. Performed By: #### C MP #### [facility] ([facility]) [address] [place] [address] VIR Glucose [Mass/Vol] 119 mg/dL High 65-99 [facility] Comment on above: Performed By: #### C MP #### [facility] ([facility]) [address] [place] [address] VIR Potassium [Moles/Vol] 4.0 mmol/L Normal 3.5-5.0 [facility] Comment on above: Performed By: #### C MP #### [facility] ([facility]) [address] [place] [address] VIR Protein [Mass/Vol] 4.7 g/dL Low 6.0-8.0 [facility] Comment on above: Performed By: #### C MP #### [facility] ([facility]) [address] [place] [address] VIR Sodium [Moles/Vol] 146 mmol/L Normal 134-146 [facility] Comment on above: Performed By: #### C MP #### [facility] ([facility]) [address] [place] [address] VIR Urea nitrogen [Mass/Vol] 48 mg/dL High 5-27 [facility] Comment on above: Performed By: #### C MP #### [facility] ([facility]) [address] [place] [address] VIR Comp Metabolic Pr/rfx MGon 0 - Albumin [Mass/Vol] 3.3 g/dL Low 3.5-5.2 [facility] Comment on above: Performed By: #### U RC #### [facility] [address] [place] [address] Incident Engineer: Beto Farah MD [facility] [address] [place] [address] [place] [address] Incident Engineer: Wilver Calvillo MD Albumin/Glob Ratio 1.3 Normal 1.0-2.5 [facility] Comment on above: Performed By: #### U RC #### [facility] [address] [place] [address] Incident Engineer: Beto Farah MD [facility] [address] [place] [address] Incident Engineer: Wilver Calvillo MD Alkaline Phos 181 U/L High 35-104 [facility] Comment on above: Performed By: #### U RC #### [facility] [address] [place] [address] Incident Engineer: Beto Farah MD [facility] [address] [place] [phone] Incident Engineer: Wilver Calvillo MD ALT [Catalytic activity/Vol] 71 U/L High 10-35 [facility] Comment on above: Performed By: #### U RC #### [facility] [address] [place] [address] Incident Engineer: Beto Farah MD [facility] [address] [place] [address] [place]. [place], [place] [phone] Incident Engineer: Wilver Calvillo MD Anion gap [Moles/Vol] 13 mmol/L Normal 9-16 [facility] Comment on above: Performed By: #### U RC #### [facility] [address] [place] [address] Incident Engineer: Beto Farah MD [facility] [address] [place] [address] [place] [address] Incident Engineer: Wilver Calvillo MD AST [Catalytic activity/Vol] 83 U/L High 10-35 [facility] Comment on above: Performed By: #### U RC #### [address] [address] Incident Engineer: Beto Farah MD [address] [place], [place] [phone] Incident Engineer: Wilver Calvillo MD Bilirubin [Mass/Vol] 0.9 mg/dL Normal 0.00-1.20 [facility] Comment on above: Performed By: #### U RC #### [facility] [address] [place] [address] Incident Engineer: Beto Farah MD [address] [place], [place] [phone] Incident Engineer: Wilver Calvillo MD BUN/CRE Ratio 30 High 9-20 [facility] Comment on above: Performed By: #### U RC #### [facility] [address] [place] [address] Incident Engineer: Beto Farah MD [facility] [address] [place] [address] [place]. [place], [place] [phone] Incident Engineer: Wilver Calvillo MD Calcium [Mass/Vol] 8.3 mg/dL Low 8.6-10.4 [facility] Comment on above: Performed By: #### U RC #### [facility] [address] [place] [address] Incident Engineer: Beto Farah MD [facility] [address] [place] [address] Incident Engineer: Wilver Calvillo MD Chloride [Moles/Vol] 109 mmol/L High 98-107 [facility] Comment on above: Performed By: #### U RC #### [place] [address]5972 [place] [address] Incident Engineer: Beto Farah MD [facility] [address] [place] [address] [place] [address] Incident Engineer: Wilver Calvillo MD CO2 [Moles/Vol] 17 mmol/L Low 20-31 [facility] Comment on above: Performed By: #### U RC #### [facility] [address] [place] [address] Incident Engineer: Beto Farah MD [facility] [address] [place] [address] [place] [address] Incident Engineer: Wilver Calvillo MD Creatinine [Mass/Vol] 1.8 mg/dL High 0.50-0.90 [facility] Comment on above: Performed By: #### U RC #### [address] [address] Incident Engineer: Beto Farah MD [facility] [address] [place] [address] Incident Engineer: Wilver Calvillo MD GFR/1.73 sq M.predicted among non-blacks MDRD (S/P/Bld) [Vol rate/Area] 29 mL/min/{1.73_m2} Low >60 [facility] Comment on above: Result Comment: These results are not intended for use in patients <18 years of age. eGFR results are calculated without a race factor using the 2021 CKD-EPI equation. Careful clinical correlation is recommended, particularly when comparing to results calculated using previous equations. The CKD-EPI equation is less accurate in patients with extremes of muscle mass, extra-renal metabolism of creatine, excessive creatine ingestion, or following therapy that affects renal tubular secretion. Performed By: #### U RC #### [facility] [address] [place] [address] Incident Engineer: Beto Farah MD [facility] [address] [place] [address] [place]. [place], [place] [phone] Incident Engineer: Wilver Calvillo MD Glucose [Mass/Vol] 171 mg/dL High 74-99 [facility] Comment on above: Performed By: #### U RC #### [address] [address] Incident Engineer: Beto Farah MD [facility] [address] [place] [address] [place]. [place], [place] [phone] Incident Engineer: Wilver Calvillo MD Potassium [Moles/Vol] 4.8 mmol/L Normal 3.7-5.3 [facility] Comment on above: Performed By: #### U RC #### [address] [address] Incident Engineer: Beto Farah MD [address] [place] [address] Incident Engineer: Wilver Calvillo MD Protein [Mass/Vol] 5.7 g/dL Low 6.6-8.7 [facility] Comment on above: Performed By: #### U RC #### [address] [address] Incident Engineer: Beto Farah MD [facility] [address] [place] [address] Dr. [place], [place] [phone] Incident Engineer: Wilver Calvillo MD Sodium [Moles/Vol] 139 mmol/L Normal 136-145 [facility] Comment on above: Performed By: #### U RC #### [address] [place] [id number] Incident Engineer: Beto Farah MD [facility] [address] [place] [address] Incident Engineer: Wilver Calvillo MD Urea nitrogen [Mass/Vol] 54 mg/dL High 8-23 [facility] Comment on above: Performed By: #### U RC #### [facility] [address] [place], [place] [phone] Incident Engineer: Beto Farah MD [facility] [address] [place] [address] Incident Engineer: Wilver Calvillo MD Comprehensive Metabolic Pane l w/ Reflex to on 09-29-2024 Albumin [Mass/Vol] 3.3 g/dL Low 3.5 - 5.2 g/dL [facility] Albumin/Globulin [Mass ratio] 1.3 {ratio} 1.0 - 2.5 [facility] ALP [Catalytic activity/Vol] 181 U/L High 35 - 104 U/L [facility] ALT [Catalytic activity/Vol] 71 U/L High 10 - 35 U/L [facility] Anion gap [Moles/Vol] 13 mmol/L 9 - 16 mmol/L [facility] AST [Catalytic activity/Vol] 83 U/L High 10 - 35 U/L [facility] Bilirubin [Mass/Vol] 0.9 mg/dL 0.00 - 1.20 mg/dL [facility] Calcium [Mass/Vol] 8.3 mg/dL Low 8.6 - 10. 4 mg/dL [facility] Chloride [Moles/Vol] 109 mmol/L High 98 - 107 mmol/L [facility] CO2 [Moles/Vol] 17 mmol/L Low 20 - 31 mmol/L [facility] Creatinine [Mass/Vol] 1.8 mg/dL High 0.50 - 0.90 mg/dL [facility] Est, Glom Filt Rate 29 Low - PINF [facility] Comment on above: These results are not intended for use [...] following therapy that affects renal tubular secretion. Glucose [Mass/Vol] 171 mg/dL High 74 - 99 mg/dL [facility] Interpretation and review of laboratory results Abnormal [facility] Potassium [Moles/Vol] 4.8 mmol/L 3.7 - 5.3 mmol/L [facility] Protein [Mass/Vol] 5.7 g/dL Low 6.6 - 8.7 g/dL [facility] Sodium [Moles/Vol] 139 mmol/L 136 - 145 mmol/L [facility] Urea nitrogen [Mass/Vol] 54 mg/dL High 8 - 23 mg/dL [facility] Urea nitrogen/Creatinine [Mass ratio] 30 mg/mg High 9 - 20 [facility] Comprehensive metabolic pane arlye 09-29-2024 Albumin [Mass/Vol] 2.7 g/dL Low 3.2 - 5.3 g/dL [facility] ALP [Catalytic activity/Vol] 121 U/L 39 - 130 U/L [facility] ALT No additional P-5'-P [Catalytic activity/Vol] 39 U/L High NINF - 31 U/L [facility] Anion gap [Moles/Vol] 10 mmol/L 5 - 15 mmol/L [facility] AST [Catalytic activity/Vol] 40 U/L NINF - 41 U/L [facility] Bilirubin [Mass/Vol] 0.9 mg/dL 0.3 - 1.2 mg/dL [facility] Calcium [Mass/Vol] 7.2 mg/dL Low 8.5 - 10. 5 mg/dL [facility] Chloride [Moles/Vol] 120 mmol/L High 98 - 109 mmol/L [facility] CO2 [Moles/Vol] 16 mmol/L Low 22 - 32 mmol/L [facility] Creatinine [Mass/Vol] 1.54 mg/dL High 0.40 - 1.00 mg/dL [facility] Comment on above: METHOD TRACEABLE TO IDMS STANDARD EGFR Non-Race Dependent 35 Low - PINF [facility] Comment on above: Reported eGFR is bas ed on the CKD-EPI 2020 equation that does not use a race coefficient. Glucose [Mass/Vol] 119 mg/dL High 65 - 99 mg/dL [facility] Interpretation and review of laboratory results Abnormal [facility] Potassium [Moles/Vol] 4 mmol/L 3.5 - 5.0 mmol/L [facility] Protein [Mass/Vol] 4.7 g/dL Low 6.0 - 8.0 g/dL [facility] Sodium [Moles/Vol] 146 mmol/L 134 - 146 mmol/L [facility] Urea nitrogen [Mass/Vol] 48 mg/dL High 5 - 27 mg/dL [facility] EKG 12 Leadon 09-29-2024 Atrial Rate 54 BPM [employer] P [place] 74 degrees [employer] P-R Interval 88 ms [employer] Q-T Interval 428 ms [employer] QRS Duration 78 ms [employer] [facility] Q[facility] Calculation (Bazett) 405 ms [employer] R [place] 25 degrees [facility] T [place] 30 degrees [employer] Ventricular Rate 54 BPM [facility] [employer] Consider ACUTE CORONARY SYNDROME (ACS) Sinus bradycardia with short NH with Premature atrial complexes Nonspecific ST abnormality ECG interpretation of ACS is based on presence of symptoms and ST depression in Anterolateral leads Abnormal ECG When compared with ECG of 28-Sep-2024 14:51, Premature atrial complexes are now Present NH interval has decreased Nonspecific T wave abnormality no longer evident in Anterior leads Confirmed by John Galindo ([id number]) on 09/29/2024 8:23:04 AM [facility] John Galindo MD - 09/29/2024 Consider ACUTE CORONARY SYNDROME (ACS) Sinus bradycardia with short NH with Premature atrial complexes Nonspecific ST abnormality ECG interpretation of ACS is based on presence of symptoms and ST depression in Anterolateral leads Abnormal ECG When compared with ECG of 28-Sep-2024 14:51, Premature atrial complexes are now Present NH interval has decreased Nonspecific T wave abnormality no longer evident in Anterior leads Confirmed by John Galindo ([id number]) on 09/29/2024 8:23:04 AM [employer] [facility] [employer] Normal sinus rhythm Possible Left atrial enlargement Nonspecific ST and T wave abnormality Abnormal ECG When compared with ECG of 23-Jul-2021 09:50, QT has lengthened Confirmed by John Galindo ([id number]) on 09/29/2024 8:21:59 AM [facility] John Galindo MD - 09/29/2024 Normal sinus rhythm Possible Left atrial enlargement Nonspecific ST and T wave abnormality Abnormal ECG When compared with ECG of 23-Jul-2021 09:50, QT has lengthened Confirmed by John Galindo ([id number]) on 09/29/2024 8:21:59 AM [employer] EKG 12 LeadOrdered By: John Marie hmad on 09-29-2024 Atrial Rate 76 BPM [employer] Work Phone: P [place]our 57 degrees [employer] Work Phone: P-R Interval 134 ms [employer] Work Phone: Q-T Interval 404 ms [employer] Work Phone: QRS Duration 76 ms [employer] Work Phone: QTc Calculation (Bazett) 454 ms [employer] Work Phone: R [place] 20 degrees [employer] Work Phone: T [place] 43 degrees [employer] Work Phone: Ventricular Rate 76 BPM [facility] [employer] Work Phone: [facility] [employer] Work Phone: EKG Rhythm Stripon [facility] Glucose, Whole Bloodon 09-29 Glucose [Mass/Vol] 178 mg/dL High 74 - 100 mg/dL [facility] Interpretation and review of laboratory results Abnormal [facility] Glucose [Mass/Vol] 178 mg/dL High 74-100 [facility] Hemoglobin and Hematocriton 09-29-2024 Hematocrit (Bld) [Volume fraction] 27.3 % Low 36.3 - 47.1 % [facility] Hemoglobin (Bld) [Mass/Vol] 8.9 g/dL Low 11.9 - 15.1 g/dL [facility] Interpretation and review of laboratory results Abnormal [facility] Hematocrit (Bld) [Volume fraction] 23.5 % Low 36.3 - 47.1 % [facility] Hemoglobin (Bld) [Mass/Vol] 7.7 g/dL Low 11.9 - 15.1 g/dL [facility] Interpretation and review of laboratory results Abnormal [facility] Hgb/Hcton 09-29-2024 Hematocrit (Bld) [Volume fraction] 27.3 % Low 36.3-47.1 [facility] Comment on above: Performed By: #### H H #### [facility] [address] [place] [address] [place] [address] Incident Engineer: Wilver Calvillo MD Hemoglobin (Bld) [Mass/Vol] 8.9 g/dL Low 11.9-15.1 [facility] Comment on above: Performed By: #### H H #### [facility] [address] [place] [address] Incident Engineer: Wilver Calvillo MD Hematocrit (Bld) [Volume fraction] 23.5 % Low 36.3-47.1 [facility] Comment on above: Performed By: #### L ACDS #### [facility] [address] [place] [address] [place] [address] Incident Engineer: Wilver Calvillo MD Hemoglobin (Bld) [Mass/Vol] 7.7 g/dL Low 11.9-15.1 [facility] Comment on above: Performed By: #### L ACDS #### [facility] [address] [place] [address] Incident Engineer: Wilver Calvillo MD LACTATE W/ REFLEXon 09-30-19 25 LACTATE W/REFLEX 0.7 mmol/L Normal 0.4-2.0 [facility] Comment on above: Order Comment: Resul t did not trigger repeat Lactate, re-order if needed. Performed By: #### L ACTS #### [facility] [address] [place] [address] VIR Lactate w/ Reflexon 09-30-19 25 Interpretation and review of laboratory results Normal [facility] Lactate (P filippo) [Moles/Vol] 0.7 mmol/L 0.4 - 2.0 mmol/L [facility] Result did not [place] er repeat Lactate, re-order if needed. [facility] Lactic Acidon 09-29-2024 Interpretation and review of laboratory results Abnormal [facility] Lactate (BldV) [Moles/Vol] 2.4 mmol/L High 0.5 - 2.2 mmol/L [facility] Lactate [Moles/Vol] 2.4 mmol/L High 0.5-2.2 [facility] Comment on above: Performed By: #### U RC #### [facility] [address] [place] [address] Incident Engineer: Beto Farah MD [facility] [address] [place] [address] Incident Engineer: Wilver Calvillo MD NM Gallbladder Views W ghulam cystokinin and W radionuclide Ted 09-29-2024 Nonvisualization of the gallbladder taken out to 2 hours. The findings could represent either acute cholecystitis or chronic cholecystitis. No enterogastric bile reflux [facility] RIS CONSOLIDATED EXAMINATION: NUCLEAR MEDICINE HEPATOBILIARY SCINTIGRAPHY (HIDA SCAN). [...] seen. No enterogastric bile reflux is noted. [facility] Bonita Mulligan MD - 09/29/2024 EXAMINATION: NUCLEAR MEDICINE HEPATOBILIARY [...] or chronic cholecystitis. No enterogastric bile reflux [facility] Radiology Study observation (narrative) [facility] NM Gallbladder Views W ghulam cystokinin and W radionuclide IVOrdered By: Bonita Torres on 09-29-2024 [facility] Work Phone: NM HEPATOBILIARY SCAN W PHAR MACOLOGICAL INTERVENTIONon 09-29-2024 NM HEPATOBILIARY SCAN W PHARMACOLOGICAL INTERVENTION EXAMINATION: NUCLEAR MEDICINE HEPATOBILIARY SCINTIGRAPHY (HIDA SCAN). [...] or chronic cholecystitis. No enterogastric bile reflux Interpreted by: Bonita Torres MD Signed by: Bonita Torres MD 09/29/24 Final result Normal [facility] No Panel Informationon 09-29 [facility] Occult Blood, Fecalon 2024 Occult Blood 1 Positive Abnormal NEG [facility] Comment on above: Performed By: #### L ACDS #### [facility] [address] [place] [address] Incident Engineer: Wilver Calvillo MD Specimen 1 Date TIMED Normal [facility] Comment on above: Performed By: #### L ACDS #### [facility] [address] [place] [address] Incident Engineer: Wilver Calvillo MD Specimen 1 Time 0645 [facility] Comment on above: Performed By: #### L ACDS #### [facility] [address] [place] [address] Incident Engineer: Wilver Calvillo MD PROCALCITONINon 09-29-2024 PROCALCITONIN 1.48 ng/mL High <0.05 [facility] Comment on above: Order Comment: <0.50 ng/mL - Low risk of severe sepsis and/or septic shock. <2.00 ng/mL - Recommend retesting within 6-24 hours. >2.00 ng/mL - High risk of sepsis and/or septic shock. Performed By: #### P TIP #### [facility] ([facility]) [address] [place] [address] VIR PROTIME AND INRon 09-29-2024 INR 1.4 High 0.9-1.2 [facility] Comment on above: Performed By: #### P INR #### [facility] ([facility]) [address] [place] [address] VIR PT Coag (PPP) [Time] 15.9 s High 9.8-13.2 [facility] Comment on above: Performed By: #### P INR #### [facility] ([facility]) [address] [place] [address] VIR PTon 09-29-2024 INR Coag (PPP) [Relative time] 1.4 {INR} [facility] Comment on above: Result Comment: Therapeutic Range: Moderate Anticoagulant Intensity: INR = 2.0-3.0 High Anticoagulant Intensity: INR = 2.5-3.5 Performed By: #### P T, PTT #### [facility] [address] [place] [address] Incident Engineer: Wilver Calvillo MD PT Coag (PPP) [Time] 17.0 s High 11.7-14.1 [facility] Comment on above: Performed By: #### P T, PTT #### [facility] [address] [place] [address] Incident Engineer: Wilver Calvillo MD PTTon 09-29-2024 aPTT Coag (Bld) [Time] 33.6 s [facility] Comment on above: IV Heparin Therapy Range: 62.0-94.0 [facility] Protime & INRon 09-29-2024 INR Coag (Platelet poor plasma or blood) [Relative time] 1.4 High 0.9 - 1.2 [facility] Interpretation and review of laboratory results Abnormal [facility] PT Coag (PPP) [Time] 15.9 s High [facility] Protime-INRon 09-29-2024 INR Coag (PPP) [Relative time] 1.4 {INR} [facility] Comment on above: Therapeutic Range: Moderate Anticoagulant Intensity: INR = 2.0-3.0 High Anticoagulant Intensity: INR = 2.5-3.5 Interpretation and review of laboratory results Abnormal [facility] PT Coag (PPP) [Time] 17.0 s High [facility] REPEATED ABORHon 09-29-2024 ABO_INTEP A [facility] Comment on above: Performed By: #### A BORHR #### [facility] ([facility]) [address] [place] [address] VIR RH_INTEP Positive Normal [facility] Comment on above: Performed By: #### A BORHR #### [facility] ([facility]) [address] [place] [address] VIR TYPE AND SCREENon 09-29-2024 ABO_INTEP A Normal [facility] Comment on above: Performed By: #### T SC #### [facility] ([facility]) [address] [place] [address] VIR RH_INTEP Positive Normal [facility] Comment on above: Performed By: #### T SC #### [facility] ([facility]) [address] [place] [address] VIR Type and screen(includes ind irect jesenia)on 09-29-2024 ABO A [facility] Rh Nom (Bld) Positive [facility] APTTon 09-28-2024 aPTT Coag (Bld) [Time] 31.8 s Normal 26.8-34.8 [facility] Comment on above: Result Comment: IV Heparin Therapy Range: 62.0-94.0 Performed By: #### L ACDS #### [facility] [address] [place] [address] Incident Engineer: Wilver Calvillo MD CBC auto differentialon Basophils (Bld) [#/Vol] 0 10*3/uL [facility] Basophils/100 WBC (Bld) 0 % 0 - 2 % [facility] Eosinophils (Bld) [#/Vol] 0.06 10*3/uL [facility] Eosinophils/100 WBC (Bld) 1 % 1 - 4 % [facility] Erythrocyte distribution width (RBC) [Ratio] 14 % 11.8 - 14.4 % [facility] Hematocrit (Bld) [Volume fraction] 25.2 % Low 36.3 - 47.1 % [facility] Hemoglobin (Bld) [Mass/Vol] 8.1 g/dL Low 11.9 - 15.1 g/dL [facility] Immature granulocytes (Bld) [#/Vol] 0 10*3/uL [facility] Immature granulocytes/100 WBC (Bld) 0 % 0 [facility] Interpretation and review of laboratory results Abnormal [facility] [place] [facility] Lymphocytes/100 WBC (Bld) 11 % Low 24 - 43 % [facility] Lymphocytes/100 WBC (Bld) 0.63 % Low [facility] MCH (RBC) [Entitic mass] 29.8 pg 25.2 - 33.5 pg [facility] MCHC (RBC) [Mass/Vol] 32.1 g/dL 28.4 - 34.8 g/dL [facility] MCV (RBC) [Entitic vol] 92.6 fL 82.6 - 102.9 fL [facility] Monocytes/100 WBC (Bld) 4 % 3 - 12 % [facility] Monocytes/100 WBC (Bld) 0.23 % [facility] Morphology Padilla (Bld) [Interp] ANISOCYTOSIS PRESENT [facility] Morphology Padilla (Bld) [Interp] Platelet scan shows Decreased Platelets [facility] Neutrophils/100 WBC (Bld) 84 % High 36 - 65 % [facility] Nucleated RBC/100 WBC (Bld) [Ratio] 0 % 0.0 per 100 WBC [facility] Platelet, Fluorescence 92 Low [facility] Platelets (Bld) [#/Vol] See Reflexed IPF Result [facility] Platelets reticulated/100 platelets Auto (Bld) 4.1 % 1.1 - 10.3 % [facility] RBC (Bld) [#/Vol] 2.72 10*6/uL Low 3.95 - 5.1 1 m/uL [facility] Segmented neutrophils/100 WBC (Bld) 4.78 % [facility] WBC other (Bld) [#/Vol] 5.7 [facility] CBC with Diffon 09-28-2024 Abs. Basophil 0.00 k/uL Normal 0.0-0.2 [facility] Comment on above: Performed By: #### U RC #### [facility] [employer] [address] [place] [address] Incident Engineer: Beto Farah MD [facility] [address] [place] [address] Incident Engineer: Wilver Calvillo MD Abs.Imm.Granulocyte 0.00 k/uL Normal 0.00-0.30 [facility] Comment on above: Performed By: #### U RC #### [address] [address] Incident Engineer: Beto Farah MD [address] [place] [address] Incident Engineer: Wilver Calvillo MD Abs.Neutrophil (Seg) 4.78 k/uL Normal 1.50-8.10 [facility] Comment on above: Performed By: #### U RC #### [address] [address] Incident Engineer: Beto Farah MD [address] [place] [phone] Incident Engineer: Wilver Calvillo MD Basophils/100 WBC (Bld) 0 % Normal 0-2 [facility] Comment on above: Performed By: #### U RC #### [address] [address] Incident Engineer: Beto Farah MD [address] [place] [phone] Incident Engineer: Wilver Calvillo MD Eosinophils (Bld) [#/Vol] 0.06 10*3/uL Normal 0.00-0.44 [facility] Comment on above: Performed By: #### U RC #### [address] [address] Incident Engineer: Beto Farah MD [address] [place] [phone] Incident Engineer: Wilver Calvillo MD Eosinophils/100 WBC (Bld) 1 % Normal 1-4 [facility] Comment on above: Performed By: #### U RC #### [address] [address] Incident Engineer: Beto Farah MD [address] [place] [phone] Incident Engineer: Wilver Calvillo MD Immature granulocytes/100 WBC (Bld) 0 % Normal 0 [facility] Comment on above: Performed By: #### U RC #### [facility] [address] [place] [address] Incident Engineer: Beto Farah MD [facility] [address] [place] [address] Dr. [place], [place] [phone] Incident Engineer: Wilver Calvillo MD Lymphocytes (Bld) [#/Vol] 0.63 10*3/uL Low 1.10-3.70 [facility] Comment on above: Performed By: #### U RC #### [address] [address] Incident Engineer: Beto Farah MD [facility] [address] [place] [address] Dr. [place] [phone] Incident Engineer: Wilver Calvillo MD Lymphocytes/100 WBC (Bld) 11 % Low 24-43 [facility] Comment on above: Performed By: #### U RC #### [address] [address] Incident Engineer: Beto Farah MD [facility] [address] [place] [address] [place] [address] Incident Engineer: Wilver Calvillo MD Monocytes (Bld) [#/Vol] 0.23 10*3/uL Normal 0.10-1.20 [facility] Comment on above: Performed By: #### U RC #### [address] [address] Incident Engineer: Beto Farah MD [facility] [address] [place] [address] Dr. [place] [phone] Incident Engineer: Wilver Calvillo MD Monocytes/100 WBC (Bld) 4 % Normal 3-12 [facility] Comment on above: Performed By: #### U RC #### [address] [address] Incident Engineer: Beto Farah MD [facility] [address] [place] [address] [place] [address] Incident Engineer: Wilver Calvillo MD Morphology Padilla (Bld) [Interp] ANISOCYTOSIS Normal [facility] Comment on above: Result Comment: PRES ENT Platelet scan shows Decreased Platelets Performed By: #### U RC #### [facility] [address] [place] [address] Incident Engineer: Beto Farah MD [facility] [address] [place] [address] [address]. [place], [place] [phone] Incident Engineer: Wilver Calvillo MD Neutrophil (Seg) 84 % High 36-65 [facility] Comment on above: Performed By: #### U RC #### [address] [address] Incident Engineer: Beto Farah MD [address] [place] [phone] Incident Engineer: Wilver Calvillo MD Erythrocyte distribution width (RBC) [Ratio] 14.0 % Normal 11.8-14.4 [facility] Comment on above: Performed By: #### U RC #### [facility] [address] [place] [address] Incident Engineer: Beto Farah MD [address] [place], [place] [phone] Incident Engineer: Wilver Calvillo MD Hematocrit (Bld) [Volume fraction] 25.2 % Low 36.3-47.1 [facility] Comment on above: Performed By: #### U RC #### [facility] [address] [place] [address] Incident Engineer: Beto Farah MD [facility] [address] [place] [address] [address] [place], [place] [phone] Incident Engineer: Wilver Calvillo MD Hemoglobin (Bld) [Mass/Vol] 8.1 g/dL Low 11.9-15.1 [facility] Comment on above: Performed By: #### U RC #### [address] [address] Incident Engineer: Beto Farah MD [address] [place] [address] Incident Engineer: Wilver Calvillo MD MCH (RBC) [Entitic mass] 29.8 pg Normal 25.2-33.5 [facility] Comment on above: Performed By: #### U RC #### [address] [address] Incident Engineer: Beto Farah MD [address] [place] [address] Incident Engineer: Wilver Calvillo MD MCHC (RBC) [Mass/Vol] 32.1 g/dL Normal 28.4-34.8 [facility] Comment on above: Performed By: #### U RC #### [address] [address] Incident Engineer: Beto Farah MD [address] [place] [address] Incident Engineer: Wilver Calvillo MD MCV (RBC) [Entitic vol] 92.6 fL Normal 82.6-102.9 [facility] Comment on above: Performed By: #### U RC #### [address] [address] Incident Engineer: Beto Farah MD [address] [place] [address] Incident Engineer: Wilver Calvillo MD NRBC Automated 0.0 per 100 WBC Normal 0.0 [facility] Comment on above: Performed By: #### U RC #### [address] [address] Incident Engineer: Beto Farah MD [address] [place] [address] Incident Engineer: Wilver Calvillo MD Platelet Count See Reflexed IPF Result Normal 138-453 [facility] Comment on above: Performed By: #### U RC #### [place] [address] [place] [address] Incident Engineer: Beto Farah MD [facility] [address] [place] [address] Dr. [place], [place] [phone] Incident Engineer: Wilver Calvillo MD Platelet, Fluoresc. 92 k/uL Low 138-453 [facility] Comment on above: Performed By: #### U RC #### [address] [address] Incident Engineer: Beto Farah MD [address] [place] [phone] Incident Engineer: Wilver Calvillo MD PLT, Immature Fract. 4.1 % Normal 1.1-10.3 [facility] Comment on above: Performed By: #### U RC #### [address] [address] Incident Engineer: Beto Farah MD [address] [place] [address] Incident Engineer: Wilver Calvillo MD RBC (Bld) [#/Vol] 2.72 10*6/uL Low 3.95-5.11 [facility] Comment on above: Performed By: #### U RC #### [address] [address] Incident Engineer: Beto Farah MD [address] [place] [address] Incident Engineer: Wilver Calvillo MD WBC (Bld) [#/Vol] 5.7 10*3/uL Normal 3.5-11.3 [facility] Comment on above: Performed By: #### U RC #### [address] [address] Incident Engineer: Beto Farah MD [facility] [address] [place] [address] Incident Engineer: Wilver Calvillo MD CTA CHEST ABDOMEN PELVIS W C [facility] 09-28-2024 CTA CHEST ABDOMEN PELVIS W CONTRAST EXAMINATION: CTA OF THE CHEST, ABDOMEN AND [...] is no appendicitis. The stomach is unremarkable. Peritoneum/Retroperiton eum: There is no lymphadenopathy. There is a [...] or reactive airways disease. 5. Colonic diverticulosis. Interpreted by: Rylie Jackson MD Signed by: Rylie Jackson MD 09/28/24 Final result Normal [facility] CTA Chest vessels and Abdomi nal vessels and Pelvis vessels W contrast Ted 09-28-2024 1. No aortic aneurys m or dissection. There is moderate atherosclerosis with [...] or reactive airways disease. 5. Colonic diverticulosis. [facility] RIS CONSOLIDATED EXAMINATION: CTA OF THE CHEST, ABDOMEN AND [...] is no appendicitis. The stomach is unremarkable. Peritoneum/Retroperiton eum: There is no lymphadenopathy. There is a [...] fracture or suspicious bone lesion is identified. [facility] RIS CONSOLIDATED Rylie Jackson MD - 09/28/2024 EXAMINATION: CTA OF [...] is no appendicitis. The stomach is unremarkable. Peritoneum/Retroperiton eum: There is no lymphadenopathy. There is a [...] or reactive airways disease. 5. Colonic diverticulosis. [facility] Radiology Study observation (narrative) [facility] CTA Chest vessels and Abdomi nal vessels and Pelvis vessels W contrast IVOrdered By: Rylie Jackson on 09-28-2024 [facility] Work Phone: Comp Metabolic Pr/rfx MGon 0 09-28-2024 Albumin [Mass/Vol] 3.9 g/dL Normal 3.5-5.2 [facility] Comment on above: Performed By: #### U #### [employer] [address] [place] [address] Incident Engineer: Beto Farah MD [facility] [address] [place], [place] [phone] Incident Engineer: Wilver Calvillo MD Albumin/Glob Ratio 1.4 Normal 1.0-2.5 [facility] Comment on above: Performed By: #### U RC #### [facility] [address] [place] [address] Incident Engineer: Beto Farah MD [address] [place], [place] [phone] Incident Engineer: Wilver Calvillo MD Alkaline Phos 209 U/L High 35-104 [facility] Comment on above: Performed By: #### U RC #### [address] [address] Incident Engineer: Beto Farah MD [address] [place], [place] [phone] Incident Engineer: Wilver aClvillo MD ALT [Catalytic activity/Vol] 86 U/L High 10-35 [facility] Comment on above: Performed By: #### U RC #### [facility] [address] [place] [address] Incident Engineer: Beto Farah MD [address] [place], [place] [phone] Incident Engineer: Wilver Calvillo MD Anion gap [Moles/Vol] 13 mmol/L Normal 9-16 [facility] Comment on above: Performed By: #### U RC #### [facility] [address] [place] [address] Incident Engineer: Beto Farah MD [facility] [address] [place] [address] Dr. [place], [place] [phone] Incident Engineer: Wilver Calvillo MD AST [Catalytic activity/Vol] 110 U/L High 10-35 [facility] Comment on above: Performed By: #### U RC #### [address] [address] Incident Engineer: Beto Farah MD [facility] [address] [place] [address] [place], [place] [phone] Incident Engineer: Wilver Calvillo MD Bilirubin [Mass/Vol] 1.7 mg/dL High 0.00-1.20 [facility] Comment on above: Performed By: #### U RC #### [facility] [address] [place] [address] Incident Engineer: Beto Farah MD [facility] [address] [place] [address] [place]. [place], [place] [phone] Incident Engineer: Wilver Calvillo MD BUN/CRE Ratio 34 High 9-20 [facility] Comment on above: Performed By: #### U RC #### [facility] [address] [place] [address] Incident Engineer: Beto Farah MD [facility] [address] [place] [address] [address]. [place], [place] [phone] Incident Engineer: Wilver Calvillo MD Calcium [Mass/Vol] 9.0 mg/dL Normal 8.6-10.4 [facility] Comment on above: Performed By: #### U RC #### [facility] [address] [place] [address] Incident Engineer: Beto Farah MD [address] [place], [place] [phone] Incident Engineer: Wilver Calvillo MD Chloride [Moles/Vol] 104 mmol/L Normal 98-107 [facility] Comment on above: Performed By: #### U RC #### [facility] [address] [place] [address] Incident Engineer: Beto Farah MD [facility] [address] [place] [address] [address]. [place], [place] [phone] Incident Engineer: Wilver Calvillo MD CO2 [Moles/Vol] 21 mmol/L Normal 20-31 [facility] Comment on above: Performed By: #### U RC #### [facility] [address] [place] [address] Incident Engineer: Beto Farah MD [facility] [address] [place] [address] [place] [address] Incident Engineer: Wilver Calvillo MD Creatinine [Mass/Vol] 1.7 mg/dL High 0.50-0.90 [facility] Comment on above: Performed By: #### U RC #### [address] [address] Incident Engineer: Beto Farah MD [facility] [address] [place] [address] [place] [address] Incident Engineer: Wilver Calvillo MD GFR/1.73 sq M.predicted among non-blacks MDRD (S/P/Bld) [Vol rate/Area] 31 mL/min/{1.73_m2} Low >60 [facility] Comment on above: Result Comment: These results are not intended for [...] following therapy that affects renal tubular secretion. Performed By: #### U RC #### [address] [address] Incident Engineer: Beto Farah MD [facility] [address] [place] [address] [place] [address] Incident Engineer: Wilver Calvillo MD Glucose [Mass/Vol] 218 mg/dL High 74-99 [facility] Comment on above: Performed By: #### U RC #### [facility] [address] [place] [address] Incident Engineer: Beto Farah MD [facility] [address] [place] [address] Dr. [place] [phone] Incident Engineer: Wilver Calvillo MD Potassium [Moles/Vol] 5.0 mmol/L Normal 3.7-5.3 [facility] Comment on above: Performed By: #### U RC #### [facility] [address] [place] [address] Incident Engineer: Beto Farah MD [facility] [address] [place] [address] [place] [address] Incident Engineer: Wilver Calvillo MD Protein [Mass/Vol] 6.7 g/dL Normal 6.6-8.7 [facility] Comment on above: Performed By: #### U RC #### [facility] [address] [place] [address] Incident Engineer: Beto Farah MD [facility] [address] [place] [address] [address]. [place], [place] [phone] Incident Engineer: Wilver Calvillo MD Sodium [Moles/Vol] 138 mmol/L Normal 136-145 [facility] Comment on above: Performed By: #### U RC #### [facility] [address] [place] [address] Incident Engineer: Beto Farah MD [facility] [address] [place] [address] [address] [place], [place] [phone] Incident Engineer: Wilver Calvillo MD Urea nitrogen [Mass/Vol] 57 mg/dL High 8-23 [facility] Comment on above: Performed By: #### U RC #### [facility] [address] [place] [address] Incident Engineer: Beto Farah MD [facility] [address] [place] [address] Incident Engineer: Wilver Calvillo MD Comprehensive Metabolic Pane l w/ Reflex to MGon 09-28-2024 Albumin [Mass/Vol] 3.9 g/dL 3.5 - 5.2 g/dL [facility] Albumin/Globulin [Mass ratio] 1.4 {ratio} 1.0 - 2.5 [facility] ALP [Catalytic activity/Vol] 209 U/L High 35 - 104 U/L [facility] ALT [Catalytic activity/Vol] 86 U/L High 10 - 35 U/L [facility] Anion gap [Moles/Vol] 13 mmol/L 9 - 16 mmol/L [facility] AST [Catalytic activity/Vol] 110 U/L High 10 - 35 U/L [facility] Bilirubin [Mass/Vol] 1.7 mg/dL High 0.00 - 1.20 mg/dL [facility] Calcium [Mass/Vol] 9 mg/dL 8.6 - 10. 4 mg/dL [facility] Chloride [Moles/Vol] 104 mmol/L 98 - 107 mmol/L [facility] CO2 [Moles/Vol] 21 mmol/L 20 - 31 mmol/L [facility] Creatinine [Mass/Vol] 1.7 mg/dL High 0.50 - 0.90 mg/dL [facility] Est, Glom Filt Rate 31 Low - PINF [facility] Comment on above: These results are not intended for use [...] following therapy that affects renal tubular secretion. Glucose [Mass/Vol] 218 mg/dL High 74 - 99 mg/dL [facility] Interpretation and review of laboratory results Abnormal [facility] Potassium [Moles/Vol] 5 mmol/L 3.7 - 5.3 mmol/L [facility] Protein [Mass/Vol] 6.7 g/dL 6.6 - 8.7 g/dL [facility] Sodium [Moles/Vol] 138 mmol/L 136 - 145 mmol/L [facility] Urea nitrogen [Mass/Vol] 57 mg/dL High 8 - 23 mg/dL [facility] Urea nitrogen/Creatinine [Mass ratio] 34 mg/mg High 9 - 20 [facility] EKG Rhythm Stripon [facility] Lactate, Sepsison 09-28-2024 Interpretation and review of laboratory results Abnormal [facility] Lactate (BldV) [Moles/Vol] 2 mmol/L High 0.5 - 1.9 mmol/L [facility] Lactic Acid, Sepsis 2.0 mmol/L High 0.5-1.9 [facility] Comment on above: Performed By: #### L ACDS #### [facility] [address] [place] [address] Incident Engineer: Wilver Calvillo MD Interpretation and review of laboratory results Abnormal [facility] Lactate (BldV) [Moles/Vol] 2.2 mmol/L High 0.5 - 1.9 mmol/L [facility] Lactic Acid, Sepsis 2.2 mmol/L High 0.5-1.9 [facility] Comment on above: Performed By: #### L ACDS #### [facility] [address] [place] [address] Incident Engineer: Wilver Calvillo MD Lipaseon 09-28-2024 Lipase [Catalytic activity/Vol] 42 U/L 13 - 60 U/L [facility] Lipase [Catalytic activity/Vol] 42 U/L Normal 13-60 [facility] Comment on above: Performed By: #### L ACDS #### [facility] [address] [place] [address] Incident Engineer: Wilver Calvillo MD Microscopic Urinalysison Epithelial cells LM.HPF (Urine sed) [#/Area] 0 TO 2 [facility] Interpretation and review of laboratory results Abnormal [facility] Mucus Ql (Urine sed) TRACE Abnormal None [facility] RBC LM.HPF (Urine sed) [#/Area] None [facility] WBC LM.HPF (Urine sed) [#/Area] 0 TO 2 [facility] PTon 09-28-2024 INR Coag (PPP) [Relative time] 1.2 {INR} Normal [facility] Comment on above: Result Comment: Therapeutic Range: Moderate Anticoagulant Intensity: INR = 2.0-3.0 High Anticoagulant Intensity: INR = 2.5-3.5 Performed By: #### L ACDS #### [facility] [address] [place] [address] Incident Engineer: Wilver Calvillo MD PT Coag (PPP) [Time] 14.6 s High 11.7-14.1 [facility] Comment on above: Performed By: #### L ACDS #### [facility] [address] [place] [address] Incident Engineer: Wilver Calvillo MD PTTon 09-28-2024 aPTT Coag (Bld) [Time] 31.8 s [facility] Comment on above: IV Heparin Therapy Range: 62.0-94.0 [facility] Procalcitoninon 09-28-2024 Interpretation and review of laboratory results Abnormal [facility] Procalcitonin [Mass/Vol] 1.16 ng/mL High 0.00 - 0.09 ng/mL [facility] Comment on above: Suspected Sepsis: <0.50 ng/mL Low likelihood of sepsis. 0.50-2.00 ng/mL Increased likelihood of sepsis. Antibiotics encouraged. >2.00 ng/mL High risk of sepsis/shock. Antibiotics strongly encouraged. Suspected Lower Resp Tract Infections: <0.24 ng/mL Low likelihood of bacterial infection. >0.24 ng/mL Increased likelihood of bacterial infection. Antibiotics encouraged. With successful antibiotic therapy, PCT levels should decrease rapidly. (Half-life of 24 to 36 hours.) Procalcitonin values from samples collected within the first 6 hours of systemic infection may still be low. Retesting may be indicated. Values from day 1 and day 4 can be entered into the Change in Procalcitonin Calculator ([email or web address]-oyv-[email or web address]) to determine the patient's Mortality Risk Prognosis In healthy neonates, plasma Procalcitonin (PCT) concentrations increase gradually after , reaching peak values at about 24 hours of age then decrease to normal values below 0.5 ng/mL by 48-72 hours of age. [facility] Procalcitonin 1.16 ng/mL High 0.00-0.09 [facility] Comment on above: Result Comment: Suspected Sepsis: <0.50 ng/mL Low likelihood of sepsis. 0.50-2.00 ng/mL Increased likelihood of sepsis. Antibiotics encouraged. >2.00 ng/mL High risk of sepsis/shock. Antibiotics strongly encouraged. Suspected Lower Resp Tract Infections: <0.24 ng/mL Low likelihood of bacterial infection. >0.24 ng/mL Increased likelihood of bacterial infection. Antibiotics encouraged. With successful antibiotic therapy, PCT levels should decrease rapidly. (Half-life of 24 to 36 hours.) Procalcitonin values from samples collected within the first 6 hours of systemic infection may still be low. Retesting may be indicated. Values from day 1 and day 4 can be entered into the Change in Procalcitonin Calculator (www.dbijmg-wjz-[email or web address]) to determine the patient's Mortality Risk Prognosis In healthy neonates, plasma Procalcitonin (PCT) concentrations increase gradually after , reaching peak values at about 24 hours of age then decrease to normal values below 0.5 ng/mL by 48-72 hours of age. Performed By: #### U RC #### [address] [place] [address] Incident Engineer: Beto Farah MD [facility] [address] [place] [address] [place] [address] Incident Engineer: Wilver Calvillo MD Protime-INRon 09-28-2024 INR Coag (PPP) [Relative time] 1.2 {INR} [facility] Comment on above: Therapeutic Range: Moderate Anticoagulant Intensity: INR = 2.0-3.0 High Anticoagulant Intensity: INR = 2.5-3.5 Interpretation and review of laboratory results Abnormal [facility] PT Coag (PPP) [Time] 14.6 s High [facility] Type + Screenon 09-28-2024 Type + Screen Sample Expiration 10/01/2024,2359 Arm Band Number [id number] ABO/Rh(D) A POSITIVE Antibody Screen NEGATIVE Unit Number [id number] Blood Component Type Leukocyte Reduced Red Cell Unit Division 00 Status of Unit TRANSFUSED Transfusion Status OK TO TRANSFUSE Crossmatch Result COMPATIBLE Unit Number [id number] Blood Component Type Leukocyte Reduced Red Cell Unit Division 00 Status of Unit TRANSFUSED Transfusion Status OK TO TRANSFUSE Crossmatch Result COMPATIBLE Normal [facility] Comment on above: Performed By: #### T YS #### [address] [place], [place] [id number] Incident Engineer: Wilver Calvillo MD UA w/Reflex Cultureon 2024 Bilirubin, SemiQt,Ur SMALL Abnormal NEG [facility] Comment on above: Performed By: #### U RC #### [address] [address] Incident Engineer: Beto Farah MD [address] [place] [phone] Incident Engineer: Wilver Calvillo MD Blood, Urine Negative Normal NEG [facility] Comment on above: Performed By: #### U RC #### [address] [address] Incident Engineer: Beto Farah MD [address] [place], [place] [phone] Incident Engineer: Wilver Calvillo MD Clarity (U) Clear Normal CLEAR [facility] Comment on above: Performed By: #### U RC #### [address] [address] Incident Engineer: Beto Farah MD [address] [place], [place] [phone] Incident Engineer: Wilver Calvillo MD Color (U) Yellow Normal YEL [facility] Comment on above: Performed By: #### U RC #### [address] [address] Incident Engineer: Beto Farah MD [facility] [address] [place] [address] Dr. [place], [place] [phone] Incident Engineer: Wilver Calvillo MD Glucose Ql (U) Negative Normal NEG [facility] Comment on above: Performed By: #### U RC #### [address] [address] Incident Engineer: Beto Farah MD [facility] [address] [place] [address] Dr. [place], [place] [phone] Incident Engineer: Wilver Calvillo MD Ketones Ql (U) Negative Normal NEG [facility] Comment on above: Performed By: #### U RC #### [address] [address] Incident Engineer: Beto Farah MD [facility] [address] [place] [address] Dr. [place] [phone] Incident Engineer: Wilver Calvillo MD Leukocyte esterase Test strip Ql (U) Negative Normal NEG [facility] Comment on above: Performed By: #### U RC #### [address] [address] Incident Engineer: Beto Farah MD [facility] [address] [place] [address] Dr. [place] [phone] Incident Engineer: Wilver Calvillo MD Nitrite,Ur Negative Normal [facility] Comment on above: Performed By: #### U RC #### [address] [address] Incident Engineer: Beto Farah MD [facility] [address] [place] [address] Dr. [place] [phone] Incident Engineer: Wilver Calvillo MD PH,Ur 6.0 Normal 5.0-9.0 [facility] Comment on above: Performed By: #### U RC #### [address] [id number] Incident Engineer: Beto Farah MD [facility] [address] [place] [address] Dr. [place], [place] [phone] Incident Engineer: Wilver Calvillo MD Protein Ql (U) Negative Normal NEG [facility] Comment on above: Performed By: #### U RC #### [facility] [address] [place] [address] Incident Engineer: Beto Farah MD [facility] [address] [place] [address] Dr. [place], [place] [phone] Incident Engineer: Wilver Calvillo MD Spec. [place],Ur 1.010 Normal 1.010-1.020 [facility] Comment on above: Performed By: #### U RC #### [facility] [address] [place] [address] Incident Engineer: Beto Farah MD [address] [place] [phone] Incident Engineer: Wilver Calvillo MD Urobilinogen,Ur Normal Normal 0.0-1.0 [facility] Comment on above: Performed By: #### U RC #### [address] [address] Incident Engineer: Beto Farah MD [address] [place] [phone] Incident Engineer: Wilver Calvillo MD Urinalysis with Reflex to Cu ltureon 09-28-2024 Bilirubin Ql (U) SMALL Abnormal NEGATIVE [facility] Clarity (U) Clear Clear [facility] Color (U) Yellow Yellow [facility] Glucose Test strip (U) [Mass/Vol] Negative NEGATIVE mg/dL [facility] Hemoglobin Auto test strip Ql (U) Negative NEGATIVE [facility] Interpretation and review of laboratory results Abnormal [facility] Ketones (U) [Mass/Vol] Negative NEGATIVE mg/dL [facility] Leukocyte esterase Test strip Ql (U) Negative NEGATIVE [facility] Nitrite Ql (U) Negative NEGATIVE [facility] pH (U) 6 [pH] 5.0 - 9.0 [facility] Protein (U) [Mass/Vol] Negative NEGATIVE mg/dL [facility] Specific gravity (U) [Rel density] 1.01 1.010 - 1.020 [facility] Urobilinogen Qn (U) Normal 0.0 - 1. 0 EU/dL [facility] Urinalysis,Microon 5 Epithelial cells LM Ql (Urine sed) 0 TO 2 Normal 0-25 [facility] Comment on above: Performed By: #### U RC #### [address] [address] Incident Engineer: Beto Farah MD [facility] [address] [place] [address] Dr. [place] [phone] Incident Engineer: Wilver Calvillo MD Mucus Strands TRACE Abnormal NONE [facility] Comment on above: Performed By: #### U RC #### [address] [place] [address] Incident Engineer: Beto Farah MD [facility] [address] [place] [address] Dr. [place] [phone] Incident Engineer: Wilver Calvillo MD Urine RBC's None Normal 0-2 [facility] Comment on above: Performed By: #### U RC #### [address] [address] Incident Engineer: Beto Farah MD [facility] [address] [place] [address] Dr. [place] [phone] Incident Engineer: Wilver Calvillo MD Urine WBC's 0 TO 2 Normal 0-5 [facility] Comment on above: Performed By: #### U RC #### [facility] [address] [place] [address] Incident Engineer: Beto Farah MD [facility] [address] [phone] Incident Engineer: Wilver Calvillo MD HEPATIC WEDGE PRESSURE/VENOo n 09-21-2024 HEPATIC WEDGE PRESSURE/VENO EXAM: IR HEPATIC WEDGE PRESSURE/VENO, IR TRANSCATHETER [...] 1 mg Given Rate: 0 Route: Intravenous; 11: AM 09/20/24 fentaNYL (SUBLIMAZE) injection 0-300 mcg Given 50 mcg Given Rate: 0 Route: Intravenous; 11: AM 09/20/24 midazolam (VERSED) injection 0-10 mg Given 1 mg Given Rate: 0 Route: Intravenous; 11: AM 09/20/24 Lidocaine 2 % injection Ordered and Given 2 mL Given Rate: 0 Route: Other; 11:51 AM 09/20/24 fentaNYL (SUBLIMAZE) injection 0-300 mcg Given 25 mcg Given Rate: 0 Route: Intravenous; 11: AM 09/20/24 midazolam (VERSED) injection 0-10 mg Given 0.5 mg Given Rate: 0 Route: Intravenous; 12:03 PM 09/20/24 fentaNYL (SUBLIMAZE) injection 0-300 mcg Given 25 mcg Given Rate: 0 Route: Intravenous; 12: PM 09/20/24 midazolam (VERSED) injection 0-10 mg [...] Intravenous; TOTAL FLUORO TIME: 4.3 minutes OPERATORS: Rylie Whipple II, MD (attending), Jorge Serrano MD (resident) CONSENT: Following discussion of the risks, benefits and alternatives of the procedure, written informed consent was obtained. SEDATION: I performed Moderate Sedation which included the presence of a nurse that assisted in monitoring the patient's level of consciousness and physiologic status. After administration of sedative medication(s), I spent 33 minutes of continuous kxun-nt-xbzr time with the patient. COMPARISON: No prior [...] wire was advanced into the IVC. A 10-Montserratian by 40 cm hemostatic sheath was placed. [...] Wedge Pressure: 13 Free Hepatic Pressure: 8 IMPRESSION: Transjugular liver biopsy performed with samples sent to pathology. Pressure measurements as above. Rylie Whipple II, MD was in the room and participated during all morales portions of this procedure. I personally viewed and interpreted these images and I have reviewed and approved this report. Table formatting from the original result was not included. Flowsheet Row Most Recent Value Fluoro time: 4.3 Fluoro time measurement: minutes Rad Dose: 12 Rad Dose Measurement: mGy Meds Meds Time Date Event Details User 11:26 AM 09/20/24 Timeout: Sign-in Signed by Smita Pyle RN at 09/20/2024 11:26 AM 11:34 AM 09/20/24 fentaNYL (SUBLIMAZE) injection 0-300 mcg Ordered and Given 50 mcg Given Rate: 0 Route: Intravenous 11:34 AM 09/20/24 midazolam (VERSED) injection 0-10 mg Ordered and Given 1 mg Gi (more content not included)... Normal [facility] TRANSCATHETER BIOPSYon 09-21 TRANSCATHETER BIOPSY EXAM: IR HEPATIC WEDGE PRESSURE/VENO, IR TRANSCATHETER BIOPSY, 09/20/2024 12:17 PM CLINICAL INDICATIONS: 73-year-old woman with history of liver fibrosis and primary biliary cholangitis presenting for transjugular liver biopsy with manometry. MEDICATIONS: 11:34 AM 09/20/24 fentaNYL (SUBLIMAZE) injection 0-300 mcg Ordered and Given 50 mcg Given Rate: 0 Route: Intravenous; 11: AM 09/20/24 midazolam (VERSED) injection 0-10 mg Ordered and Given 1 mg Given Rate: 0 Route: Intravenous; 11: AM 09/20/24 fentaNYL (SUBLIMAZE) injection 0-300 mcg Given 50 mcg Given Rate: 0 Route: Intravenous; 11: AM 09/20/24 midazolam (VERSED) injection 0-10 mg Given 1 mg Given Rate: 0 Route: Intravenous; 11: AM 09/20/24 Lidocaine 2 % injection Ordered and Given 2 mL Given Rate: 0 Route: Other; 11: AM 09/20/24 fentaNYL (SUBLIMAZE) injection 0-300 mcg Given 25 mcg Given Rate: 0 Route: Intravenous; : AM 09/20/24 midazolam (VERSED) injection 0-10 mg [...] Intravenous; TOTAL FLUORO TIME: 4.3 minutes OPERATORS: Rylie Whipple II, MD (attending), Jorge Serrano MD (resident) CONSENT: Following discussion of the risks, benefits and alternatives of the procedure, written informed consent was obtained. SEDATION: I performed Moderate Sedation which included the presence of a nurse that assisted in monitoring the patient's level of consciousness and physiologic status. After administration of sedative medication(s), I spent 33 minutes of continuous hzio-ln-ofyx time with the patient. COMPARISON: No prior [...] wire was advanced into the IVC. A 10-Montserratian by 40 cm hemostatic sheath was placed. [...] Wedge Pressure: 13 Free Hepatic Pressure: 8 IMPRESSION: Transjugular liver biopsy performed with samples sent to pathology. Pressure measurements as above. Rylie Whipple II, MD was in the room and participated during all morales portions of this procedure. I personally viewed and interpreted these images and I have reviewed and approved this report. Table formatting from the original result was not included. Flowsheet Row Most Recent Value Fluoro time: 4.3 Fluoro time measurement: minutes Rad Dose: 12 Rad Dose Measurement: mGy Meds Meds Time Date Event Details User 11:26 AM 09/20/24 Timeout: Sign-in Signed by Smita Pyle RN at 09/20/2024 11:26 AM 11:34 AM 09/20/24 fentaNYL (SUBLIMAZE) injection 0-300 mcg Ordered and Given 50 mcg Given Rate: 0 Route: Intravenous 11:34 AM 09/20/24 midazolam (VERSED) injection 0-10 mg Ordered and Given 1 mg Gi (more content not included)... Normal [facility] GENERAL PROCEDUREon 09-21-19 [facility] Radiology Study observation (narrative) [facility] GLUCOSE POCon 09-20-2024 Glucose [Mass/Vol] 133 mg/dL 70 - 179 mg/dL [facility] POC Sample Type VENO [facility] Test performed at address of the patient encounter. [facility] SURG PATH REQUESTon 09-21-19 Case Report Normal [facility] Comment on above: Result Comment: Surg ical Pathology Report Case: [id number] Authorizing Provider: ERNIE Duke Collected: 09/20/2024 12:08 PM Ordering Location: [facility] Received: 09/20/2024 12:24 PM Hospital Pathologist: Jj Crowell MD Specimen: Liver Non-Tumor (medical) Performed By: #### S URGP #### [facility] (DEFAULT) [address] [place] [address] Clinical History 73 year old female w ith history of PBC, indeterminate hepatic fibrosis. Normal [facility] Comment on above: Performed By: #### S URGP #### [facility] (DEFAULT) [address] [place] [address] Gross Description Normal [facility] Comment on above: Result Comment: The specimen is received in one properly labeled container with the patient's name and accession number. A. The specimen is designated transjugular medical liver core biopsy and consists of five copeland soft tissue cores that range from 0.5 cm up to 1.6 cm in length, with an average diameter of 0.1 cm. TE 2 Lab Use Only: JobID [id number] Grosser for this case was: Judith Flores Performed By: #### S URGP #### [facility] (DEFAULT) [address] [place] [address] Microscopic Description [facility] Comment on above: Result Comment: A mi croscopic examination was performed. All controls show appropriate reactivity. All immunohistochemistry (IHC), in situ hybridization (LEONARDA), and histochemical tests were developed by and are performed at the [facility] Clinical Laboratory, Histology and IHC Lab, [address] [place] [address]. All Immunofluorescent (IF) tests were developed by and are performed at the [facility] Clinical Laboratory, Renal Division, [address] [place] [address]. All tests reported here, except for PD-L1, have not been cleared by or approved by the US Food and Drug Administration (FDA). The laboratory is regulated under CLIA as qualified to perform high-complexity testing. The tests are used for clinical purposes. They should not be regarded as investigational or for research. Performed By: #### S URGP #### [facility] (DEFAULT) [address] [place] [address] Pathologic Diagnosis Normal [facility] Comment on above: Result Comment: Venkata tinoco, transjugular core biopsy: Focal bile duct injury with inflammation, compatible with clinical history of PBC Trichrome stain highlights bridging fibrosis with focal nodular formation, stage 3-4 Iron stain is negative PAS with diastase is negative for intracytoplasmic globules at 1835 EDT Performed By: #### S URGP #### [facility] (DEFAULT) [address] [address] Professional Interpretation Performed at: [facility] Comment on above: Result Comment: [facility] For Immediate Release [facility] Yes [address] [place] [address] Performed By: #### S URGP #### [facility] (DEFAULT) [address] [address] Inpatient Clinical Summaryon 08-23-2024 Inpatient Clinical Summary [facility] Post-Acute Care Transfer Instructions PERSON INFORMATION Name: Ashlee Banerjee : 1950 [employer] Admitting Physician: Attending Physician: Andrae Patino MD PCP: Rafita FOSTER, Cooper Kirby Discharge Diagnosis: Comment: PATIENT EDUCATION INFORMATION Instructions: Medication Leaflets: Follow-up: MEDICATION LIST Medication Reconciliation at Discharge: New Medications [id number], [address], [place] [id number], [phone] omeprazole (omeprazole 40 mg oral delayed release capsule) 1 Capsules Oral (given by mouth) every day for 30 Days. Refills: 6. Last Dose: __ Medications that have not changed Other Medications aspirin (aspirin 81 mg oral delayed release tablet) 1 Tabs Oral (given by mouth) every day. Last Dose: __ atorvastatin (atorvastatin 20 mg oral tablet) 1 Tabs Oral (given by mouth) every day. Last Dose: __ bifidobacterium-lactoba cillus (Probiotic Formula oral capsule) Oral (given by mouth) every day. Last Dose: __ calcium citrate Oral (given by mouth) 2 times a day. Last Dose: __ carvedilol (carvedilol 25 mg oral tablet) 1 Tabs Oral (given by mouth) 2 times a day. Last Dose: __ cetirizine (ZyrTEC 10 mg oral tablet) 1 Tabs Oral (given by mouth) every day. Last Dose: __ cholecalciferol (Vitamin D3 1000 intl units oral capsule) 25 Microgram Oral (given by mouth) every day. Last Dose: __ cycloSPORINE ophthalmic (Restasis 0.05% ophthalmic emulsion) 1 Drops Both eyes 2 times a day. Last Dose: __ hydroCHLOROthiazide (hydroCHLOROthiazide 12.5 mg oral tablet) Last Dose: __ levothyroxine (Synthroid 100 mcg (0.1 mg) oral tablet) 1 Tabs Oral (given by mouth) every day. Last Dose: __ meloxicam (meloxicam 15 mg oral tablet) Oral (given by mouth) every day. Last Dose: __ metFORMIN (metFORMIN 500 mg oral tablet) TAKE 1 TABLET BY MOUTH TWICE A DAY WITH MEALS. Last Dose: __ Misc Medication (Restore Ocular) Ophthalmic (the eye) every day. Last Dose: __ olopatadine ophthalmic (Pataday 0.2% ophthalmic solution) 1 Drops Both eyes every day. Last Dose: __ omega-3 polyunsaturated fatty acids ([place]-3 oral capsule) Last Dose: __ traZODone (traZODone 50 mg oral tablet) every day. Last Dose: __ triamcinolone nasal (Nasacort Allergy 24HR 55 mcg/inh nasal spray) 2 Sprays Nasal (into the nose) every day. Last Dose: __ ubiquinone (Co-Q10 100 mg oral capsule) 2 Capsules Oral (given by mouth) every day. Last Dose: __ ursodiol (ursodiol 500 mg oral tablet) 1 Tabs Oral (given by mouth) 2 times a day for 90 Days. Refills: 2. Last Dose: __ valsartan (valsartan 320 mg oral tablet) Last Dose: __ Patient?s Final Home Medication List Upon Discharge: [id number], [address], [place] [id number], [phone] omeprazole (omeprazole 40 mg oral delayed release capsule) 1 Capsules Oral (given by mouth) every day for 30 Days. Refills: 6. Other Medications aspirin (aspirin 81 mg oral delayed release tablet) 1 Tabs Oral (given by mouth) every day. atorvastatin (atorvastatin 20 mg oral tablet) 1 Tabs Oral (given by mouth) every day. bifidobacterium-lactoba cillus (Probiotic Formula oral capsule) Oral (given by mouth) every day. calcium citrate Oral (given by mouth) 2 times a day. carvedilol (carvedilol 25 mg oral tablet) 1 Tabs Oral (given by mouth) 2 times a day. cetirizine (ZyrTEC 10 mg oral tablet) 1 Tabs Oral (given by mouth) every day. cholecalciferol (Vitamin D3 1000 intl units oral capsule) 25 Microgram Oral (given by mouth) every day. cycloSPORINE ophthalmic (Restasis 0.05% ophthalmic emulsion) 1 Drops Both eyes 2 times a day. hydroCHLOROthiazide (hydroCHLOROthiazide 12.5 mg oral tablet) levothyroxine (Synthroid 100 mcg (0.1 mg) oral tablet) 1 Tabs Oral (given by mouth) every day. meloxicam (meloxicam 15 mg oral tablet) Oral (given by mouth) every day. metFORMIN (metFORMIN 500 mg oral tablet) TAKE 1 TABLET BY MOUTH TWICE A DAY WITH MEALS. Misc Medication (Restore Ocular) Ophthalmic (the eye) every day. olopatadine ophthalmic (Pataday 0.2% ophthalmic solution) 1 Drops Both eyes every day. omega-3 polyunsaturated fatty acids ([place]-3 oral capsule) traZODone (traZODone 50 mg oral tablet) every day. triamcinolone nasal (Nasacort Allergy 24HR 55 mcg/inh nasal spray) 2 Sprays Nasal (into the nose) every day. ubiquinone (Co-Q10 100 mg oral capsule) 2 Capsules Oral (given by mouth) every day. ursodiol (ursodiol 500 mg oral tablet) 1 Tabs Oral (given by mouth) 2 times a day for 90 Days. Refills: 2. valsartan (valsartan 320 mg oral (more content not included)... Normal [facility] POC Glucose Randomon 025 Glucose [Mass/Vol] 134 mg/dL High 70-99 [facility] Comment on above: Performed By: #### C [id number] #### [facility] [address] [place] [address] XR C-SPINE FLEX/EXT ONLY 2 V IEWSon 04-13-2024 XR C-SPINE FLEX/EXT ONLY 2 VIEWS EXAMINATION: XR C-SPINE FLEX/EXT ONLY 2 VIEWS 04/13/2024 11:45 AM CLINICAL HISTORY: laminoplasty ASSOCIATED DIAGNOSIS: Cervical spondylosis with myelopathy ORDERING PROVIDER: GERI VERGARA [employer] NOTE: COMPARISON: Cervical radiograph 09/16/2023 FINDINGS: On the lateral view the C-spine is visible to the C7 level. Normal alignment. The vertebral bodies appear intact. There is no prevertebral soft tissue swelling. The atlantodental interval is normal. Multilevel degenerative changes are present most prominent at 4-5 and C5-6. Posterior cervical hardware is intact. 1 mm posterior displacement of the C4 vertebral body and relation to C5 on flexion in setting of retrolisthesis.. IMPRESSION: Multilevel degenerative changes of the lower cervical spine with 1 mm posterior displacement of the C4 vertebral body in relation to C5 on flexion in the setting of retrolisthesis. MACRO: None Normal [employer] XR Cervical spine Lateral Vi ews W flexion and W extensionon 04-13-2024 EXAMINATION: XR C-SP INE FLEX/EXT ONLY 2 VIEWS 04/13/2024 11:45 AM CLINICAL HISTORY: laminoplasty ASSOCIATED DIAGNOSIS: Cervical spondylosis with myelopathy ORDERING PROVIDER: GERI VERGARA TECHNMONY NOTE: COMPARISON: Cervical radiograph 09/16/2023 FINDINGS: On the lateral view the C-spine is visible to the C7 level. Normal alignment. The vertebral bodies appear intact. There is no prevertebral soft tissue swelling. The atlantodental interval is normal. Multilevel degenerative changes are present most prominent at 4-5 and C5-6. Posterior cervical hardware is intact. 1 mm posterior displacement of the C4 vertebral body and relation to C5 on flexion in setting of retrolisthesis.. IMPRESSION: Multilevel degenerative changes of the lower cervical spine with 1 mm posterior displacement of the C4 vertebral body in relation to C5 on flexion in the setting of retrolisthesis. MACRO: None RADIOLOGY Bacilio Lisa MD - 04/13/2024 EXAMINATION: XR C-SPINE FLEX/EXT ONLY 2 VIEWS 04/13/2024 11:45 AM CLINICAL HISTORY: laminoplasty ASSOCIATED DIAGNOSIS: Cervical spondylosis with myelopathy ORDERING PROVIDER: GERI VERGARA TECHNMONY NOTE: COMPARISON: Cervical radiograph 09/16/2023 FINDINGS: On the lateral view the C-spine is visible to the C7 level. Normal alignment. The vertebral bodies appear intact. There is no prevertebral soft tissue swelling. The atlantodental interval is normal. Multilevel degenerative changes are present most prominent at 4-5 and C5-6. Posterior cervical hardware is intact. 1 mm posterior displacement of the C4 vertebral body and relation to C5 on flexion in setting of retrolisthesis.. IMPRESSION: Multilevel degenerative changes of the lower cervical spine with 1 mm posterior displacement of the C4 vertebral body in relation to C5 on flexion in the setting of retrolisthesis. MACRO: [facility] (narrative) [facility] XR Cervical spine Lateral Vi ews W flexion and W extensionOrdered By: Bacilio Lisa on 04-13-2024 [employer] Work Phone: Progress Noteson 04-12-2024 Sleeping Bag Filler Authentication Interface Message Text DX: [id number] Posterior cervical laminoplasty, C4 to C7, with Paxfire laminoplasty system. LV: [id number] Ms Rubio returns today now 1 year out from her surgery. PE: Incision C/D/I, at neuro baseline, deltoids intact, she has lost some fascial integrity but the skin is still mobile over the spinous processes. INV: Standing lateral flex-ex cervical xrays, no issues IMP: 73yo female s/p C4-C7 laminoplasty, doing well at 1 year. PLAN: I told her if things change tomorrow to call the office. Otherwise I reminded her of the simple things - ice, sleep in the soft collar, ABCs twice a day and take a muscle relaxer at night. I want to see her for her two year follow up with standing lateral flexion-extension cervical spine xrays. Normal [employer] Cult,Urineon 04-01-2024 Cult,Urine Specimen Description .CLEAN CATCH URINE Special Requests Site: Urine Culture KLEBSIELLA PNEUMONIAE >100,000 CFU/ML KLEBSIELLA PNEUMONIAE >100,000 CFU/ML 2ND COLONY TYPE Report Status FINAL 04/01/2024 SUSCEPTIBILITY Organism KLEBSIELLA PNEUMONIAE Method TERESA Ampicillin 16 RESISTANT Cefazolin <=4 SUSCEPTIBLE Cefazolin sensitivity results can be used to predict the effectiveness of oral cephalosporins (eg. Cephalexin) in uncomplicated Urinary Tract Infections due to E. coli, K. pneumoniae, and P. mirabilis Ceftriaxone <=0.25 SUSCEPTIBLE ESBL NEGATIVE Gentamicin <=1 SUSCEPTIBLE Levofloxacin <=0.12 SUSCEPTIBLE Nitrofurantoin 32 SUSCEPTIBLE Piperacillin/Tazobactam <=4 SUSCEPTIBLE Tobramycin <=1 SUSCEPTIBLE Trimethoprim/Sulfa <=20 SUSCEPTIBLE SUSCEPTIBILITY Organism KLEBSIELLA PNEUMONIAE Method TERESA Ampicillin RESISTANT Cefazolin <=4 SUSCEPTIBLE Cefazolin sensitivity results can be used to predict the effectiveness of oral cephalosporins (eg. Cephalexin) in uncomplicated Urinary Tract Infections due to E. coli, K. pneumoniae, and P. mirabilis Ceftriaxone <=0.25 SUSCEPTIBLE ESBL NEGATIVE Gentamicin <=1 SUSCEPTIBLE Levofloxacin <=0.12 SUSCEPTIBLE Nitrofurantoin 64 INTERMEDIATE Piperacillin/Tazobactam <=4 SUSCEPTIBLE Tobramycin <=1 SUSCEPTIBLE Trimethoprim/Sulfa <=20 SUSCEPTIBLE Susceptible [facility] Comment on above: Performed By: #### L ACDS #### [facility] [address] [place], [place] [id number] Incident Engineer: Wilver Calvillo MD Urinalysis w/ Microon 2023 Bacteria 2+ Abnormal NONE [facility] Comment on above: Performed By: #### L ACDS #### [facility] [address] [place], [place] [id number] Incident Engineer: Wilver Calvillo MD Bilirubin, SemiQt,Ur Negative Normal NEG [facility] Comment on above: Performed By: #### L ACDS #### [facility] [address] [place], [place] [id number] Incident Engineer: Wilver Calvillo MD Blood, Urine Negative Normal NEG [facility] Comment on above: Performed By: #### L ACDS #### [facility] [address] [place], [place] [id number] Incident Engineer: Wilver Calvillo MD Clarity (U) Clear Normal CLEAR [facility] Comment on above: Performed By: #### L ACDS #### [facility] [address] [place], [place] [id number] Incident Engineer: Wilver Calvillo MD Color (U) Yellow Normal YEL [facility] Comment on above: Performed By: #### L ACDS #### [facility] [address] [place] [address] Incident Engineer: Wilver Calvillo MD Epithelial cells LM Ql (Urine sed) 0 TO 2 Normal 0-25 [facility] Comment on above: Performed By: #### L ACDS #### [facility] [address] [place] [address] [place] [address] Incident Engineer: Wilver Calvillo MD Glucose Ql (U) Negative Normal NEG [facility] Comment on above: Performed By: #### L ACDS #### [facility] [address] [place] [address] [place] [place], [place] [id number] Incident Engineer: Wilver Calvillo MD Ketones Ql (U) Negative Normal NEG [facility] Comment on above: Performed By: #### L ACDS #### [facility] [address] [place] [address] [place] [place], [place] [id number] Incident Engineer: Wilver Calvillo MD Leukocyte esterase Test strip Ql (U) Negative Normal NEG [facility] Comment on above: Performed By: #### L ACDS #### [facility] [address] [place] [address] [place] [address] Incident Engineer: Wilver Calvillo MD Nitrite,Ur Negative Normal NEG [facility] Comment on above: Performed By: #### L ACDS #### [facility] [address] [place] [address] [address] [place], [place] [id number] Incident Engineer: Wilver Calvillo MD PH,Ur 5.5 Normal 5.0-9.0 [facility] Comment on above: Performed By: #### L ACDS #### [facility] [address] [place] [address] [place] [address] Incident Engineer: Wilver Calvillo MD Protein Ql (U) Negative Normal NEG [facility] Comment on above: Performed By: #### L ACDS #### [facility] [address] [place] [address] [place], [place] [id number] Incident Engineer: Wilver Calvillo MD Spec. [place],Ur 1.025 High 1.010-1.020 [facility] Comment on above: Performed By: #### L ACDS #### [facility] [address] [place] [address] [address] [place], [place] [id number] Incident Engineer: Wilver Calvillo MD Urine RBC's 0 TO 2 Normal 0-2 [facility] Comment on above: Performed By: #### L ACDS #### [facility] [address] [place], [place] [id number] Incident Engineer: Wilver Calvillo MD Urine WBC's 0 TO 2 Normal 0-5 [facility] Comment on above: Performed By: #### L ACDS #### [facility] [address] [place], [place] [id number] Incident Engineer: Wilver Calvillo MD Urobilinogen,Ur Normal Normal 0.0-1.0 [facility] Comment on above: Performed By: #### L ACDS #### [facility] [address] [place] [address] Incident Engineer: Wilver Calvillo MD Urinalysis with Microscopico n 03-28-2024 Bacteria LM Ql (Urine sed) 2+ Abnormal None [facility] Bilirubin Ql (U) Negative NEGATIVE [facility] Clarity (U) Clear Clear [facility] Color (U) Yellow Yellow [facility] Epithelial cells LM.HPF (Urine sed) [#/Area] 0 TO 2 [facility] Glucose Test strip (U) [Mass/Vol] Negative NEGATIVE mg/dL [facility] Hemoglobin Auto test strip Ql (U) Negative NEGATIVE [facility] Interpretation and review of laboratory results Abnormal [facility] Ketones (U) [Mass/Vol] Negative NEGATIVE mg/dL [facility] Leukocyte esterase Test strip Ql (U) Negative NEGATIVE [facility] Nitrite Ql (U) Negative NEGATIVE [facility] pH (U) 5.5 [pH] 5.0 - 9.0 [facility] Protein (U) [Mass/Vol] Negative NEGATIVE mg/dL [facility] RBC LM.HPF (Urine sed) [#/Area] 0 TO [address] [facility] Specific gravity (U) [Rel density] 1.025 High 1.010 - 1.020 [facility] Urobilinogen Qn (U) Normal 0.0 - 1. 0 EU/dL [facility] WBC LM.HPF (Urine sed) [#/Area] 0 TO 2 [facility] XR Hip - left 3 Viewson 01-22 Imaging Result: AP and lateral of left hip showed acceptable position and alignment of left total hip arthroplasty. There was no evidence of loosening of the acetabular cup or femoral stem. Femoral head was well centered in the acetabular liner without evidence of asymmetric or accelerated wear. There was no gross evidence of fracture and/or dislocation. Impression: Unremarkable left total hip arthroplasty. [facility] Radiology Study observation (narrative) [facility] MAGR Intraoperative Record MAGR Intra-Op Record Summary Primary Physician: Finalized Date/Time: 01/31/24 12:58:14 Pt. Name: ASHLEE BANERJEE/Sex: 1950 FEMALE Med Rec #: [id number] Physician: KEITH GABRIEL DO Financial #: [id number] Pt. Type: I Room/Bed: [facility] Admit/Disch: 12/23/23 05:40:58 - 12/27/23 16:10:00 Institution: Case Times MAGR Entry 1 Patient In Room Time 12/23/23 07:41:00 Out Room Time 12/23/23 07:53:00 Anesthesia Start Time 12/23/23 07:42:00 Stop Time 12/23/23 07:53:00 Surgery Start Time 12/23/23 07:47:00 Stop Time 12/23/23 07:49:00 Last Modified By: Carole Jones RN 12/23/23 08:22:49 Case Attendance MAGR Entry 1 Entry 2 Entry 3 Case Attendee George Beverly MD, Erika RN Draper, Lora RN Role Performed Anesthesiologist of Clinical Data Abstractor Clinical Data Abstractor Record Time In 12/23/23 07:41:00 12/23/23 07:41:00 12/23/23 07:41:00 Time Out 12/23/23 07:53:00 08/01/24 07:53:00 12/23/23 07:53:00 Procedure FASCIA ILIACA FASCIA ILIACA FASCIA ILIACA BLOCK(Left) BLOCK(Left) BLOCK(Left) Last Modified By: Carole Jones RN 12/23/23 Carole Jones RN 12/23/23 Carole Jones RN 12/23/23 08:22:55 08:22:55 08:22:55 Surgical Procedures MAGR Pre-Care Text: A.20 Verifies operative procedure, surgical site, and laterality Im.150 Develops individualized plan of care Entry 1 Procedure FASCIA ILIACA BLOCK Primary Procedure Yes Primary Surgeon George Beverly MD Modifiers Left Surgeon Comment BLOCK PRIOR TO LEFT Start 12/23/23 07:47:00 TOTAL HIP Stop 12/23/23 07:49:00 Anesthesia Type Regional Block Surgical Service Anesthesia Wound Class Clean Technique Details Closure Technique N/A Entire procedure No was performed via laparoscope or robotic assistance Last Modified By: Hailee Rosa RN 01/31/24 12:58:02 Post-Care Text: O.730 The patient's care is consistent with the individualized perioperative plan of care General Case Data MAGR Pre-Care Text: A.350.1 Classifies surgical wound Entry 1 Case Information OR MAGR Proc Room Case Level None Wound Class Clean Specialty Anesthesia ASA Class 3 Diagnosis Preop Diagnosis BLOCK PRIOR TO LEFT Postop Same As Preop Yes TOTAL HIP Postop Diagnosis BLOCK PRIOR TO LEFT TOTAL HIP Blunt or No Is the procedure No penetrating injury considered occured prior to Emergent/Urgent? the start of the procedure: Last Modified By: Carole Jones RN 12/23/23 08:15:35 Post-Care Text: O.760 Patient receives consistent and comparable care regardless of the setting Time Out MAGR Entry 1 Procedure(s) FASCIA ILIACA BLOCK(Left) Time Out Checklist Verifications Team Introductions Yes Confirmed Identity, Yes Completed Procedure, Incision Site, and Consent(s) Presence of Yes Site Verification, Yes Necessary Site Marking, Site Procedural Marking Equipment, Devices, Alternative, and/or and Implants Site Marking Verified Exception in Accordance with Facility Policy Anesthesia Review Antibiotic Received n/a All Anesthesia Yes Within an Concerns Addressed Appropriate Time Interval Prior to Surgical Incision Surgeon Review Anticipated Blood Yes Expected Case Yes Loss Risk Addressed Duration Addressed Critical and Yes Non-Routine Steps to be Performed Addressed Nurse Review Equipment Yes Fire Risk Yes Checks/Concerns Assessment Addressed Completed and Interventions Performed Diagnostic and Yes Sterilization Yes Radiological Test Concerns Addressed Results Displayed are Appropriate and Labeled Other Concerns Yes Addressed Time Out George Beverly MD, Time Out Time 12/23/23 07:42:00 Participants Carole Jones RN, Amelia Acosta RN Last Modified By: Carole Jones RN 12/23/23 08:17:32 Patient Positioning MAGR Pre-Care Text: A.280 Identifies baseline musculoskeletal status Im.40 Positions the patient Im.80 Applies safety devices Entry 1 Procedure FASCIA ILIACA Body Position Supine BLOCK(Left) Left Arm Position Resting at Side Right Arm Position Resting at Side Left Leg Position Extended Right Leg Position Extended Feet Uncrossed? Yes Press Points Checked Yes Outcome Met (O.80) Yes Last Modified By: Carole Jones RN 12/23/23 08:21:42 Post-Care Text: E.290 Evaluates musculoskeletal status O.80 Patient is free from signs and symptoms of injury related to positioning Skin Prep MAGR Pre-Care Text: A.30 Verifies allergies Im.270 Performs skin preparation Im.270.1 Implements protective measures to prevent skin and tissue injury due to chemical sources Entry 1 Skin Prep Syntegrity Prep Agents (Im.270) Chlorhexidine Gluconate Prep By George Beverly MD and Alcohol Prep Area (Im.270) Hip Prep Area Details Left Skin Prep Agent Dry Yes Without Pooling Hair Removal Syntegrity Hair Removal Methods No hair removal performed Outcome Met (O.100) Yes Last Modified By: Carole Jones RN 12/23/23 08:19:21 Post-Care Text: E.10 Evaluates for sign (more content not included)... [facility] Coding Summary 12-29-2023 Coding Summary HTMLBase 64 FijwdwfaIEx7yXk+PGhlYWQ +BJ6IJYKtB71zqRCeiJ0rI4 NMTElOSywgQVBQTElOSyIgb hYmYH1vnBEnQXDh IC8+HP2zWSHyMiprwJUis7J 1nVV6W79dew4dJHbkhMQ3OM VrKzVcjisvr6gzuSk2WZquL mluOyBt TLIgeS20SCG6qK27Ex93gDM agFPtl3qgoKo5MoVmSNFlVV A2nYnlYYhca8HcTYOlS91ql BXwx6S8 RHOjeIhntYYmMmWfjSO6vO9 aIJiafzrfz1kdopivZfm7bl 62gWTcy6A5tKA0S0QdjfG5Q GJvbGQg BqsbfHTRyC4gbsuow1gvodd kHgMsRMVlCUm7HVw0IGMalX dlFrTrVN33WXD9VTNgysLiF 2FsLWFs tVvyWgH8v0I5Sz7JS5YXQeg jH6GEQQAUVMqwbNQ+PC90cj 97P8OoPalfAnx7CUVpEMV6z XC9lQ6r BLUyEKlbl4V2vSX6J9GphqN ctp7xq8aaSXBqZOhrR26cqW Cma2V7QLRupMB1JEOpbWuwD iBzaG93 Oyc+SMTcaJygt5DeVgmfz4y ob7hunYc1YikxHWGyngEbmG rwFZL7f5PjGk0oOZFtxVH1i UI3oP9i XwYvRrA8JFgbS559HuQulPV sIjwfM49aZ1OnxJO+PHRyPj a6EGLzxLhvKO8nR5SoUVDns mctbGVm oOtlWZ3yTICistffVTNrcL9 rLJSoX3u9ZwVkLeE1YLgeM7 LkEKFrfiwnAt14cF3vYgAbI yA2HSwy J3LaxlP5QLUksDWxKYptRKJ 8R77fb3S4KNBtURNiUJP2vB G0yG9qhHucaemfbDIboIoej mVydGlj MOuaBIveS948JHPohPqzPgM vZGluZyBEYXRlOiAgMDgvMD cvMjAyNDwvdGQ+DJPiFEZ1a WxlPSAn qRZwSLgdOm4jkXrqvCwqCC1 gBEGvoakuZOErgC7bWOMilE JpwSbqOB3yEMTztghjy369L iAxMHB0 SMGoqUDeX2VuwJ7wAmUpLSK hCLPtS7CvkSTwWDwmG121ZK kbMdU2CMRkdbGjW6BcAMUoj WduOiB0 q2G9Qq1An8BtbfamK9VaeUO kLtZaDsafEMx8N5FfAwcovB I+GH96QXRvDK01QGn3GTR7n WxlPSdi ZFJxO6FkeC4lBcEyRERtLFM kOyc+PHRhYmxlIHdpZHRoPS nqZSTuXqQumGbzAH7eVa5cH GVyLWNv eZosxSSwFrMap7nzERKzBLh uJS1zxMzpB8AfmMX0QQBvg8 p0Du44K59vX9FweZD+PGNvb VR4zZG5 hD3fBxTyCfK1RVqmR017HgT bzOFaMrbgz6zez2teqPy2Vi Z4DLXfumGlxIhdQJE5s6QrI z07Q97x IHdpZHRoPSIxNSUiIHZhbGl wfa1noM8qIq9+IVWkxBY0wA J1yD1mFpPpDnT0BAjnG517U nRvcCIv Ercgm0psl0kzgRs5ZiXjSXD ktzRcbXgcXQA3u8EhJi23N5 BozDuya7MwXkr5ca24qZKut 5P4mSB1 B4GnVRHvlgtdpXAycAprGT3 pFUZxrfkqHMWtfJ9iVQYvV3 e6NzMqZrT2BHndQ2DfnbJ4J GJvbGQg YNUkzCCZmT2dwhxjm3nutyt qEkAwAURhKIi3IMa6ZGFgbI dcSpPmBGC8TzH5TDE0pODwj M4cnJpg uhyfoI2dZfc+FZV1oKCjcUF PBU5aPukorZO+OQBmFQN4qB gaDQysOPQeiA3wRSJaU3n4B iAwLjA1 HDvhQ5PobqW3IKDtuDDwXRV piNJCaC1vhyhtb9zftbuuHl CrBFPuVTo4GNl0EFQbjQpnS iBsZWZ0 TwE0NPA7uFGhtP2igDnsplb ubJ8jBwq+OagblSvjQWD2XJ n0S6QnJrz0UOPctNuqSD5uc GFkZGlu Wc2lfDbkoUayKV1tTBIahoq aq952FpAqa2vqTBKmpPCiPY ezRMT0A96fv3W4IKEtAHRpG YM2wYH7 oD5aaFvyjydicJHxkJqqjmX njZswKXusTDulY230WIFwbF wfQdDqFDt7R3EzUqp8UWWmz EkaCP6a iVVeQWcmBi3kkIcvyPynKB5 qHPLdwysfn432SwKes9wdRI WmjKAkWVibXEW1W28og3U2C CMwMDAw ZZT7xQJ4sZ4bpLyihothjBE mdDsgdmVydGljYWwtYWxpZ2 98BBUkbEcvBhRwlVc3F6ZwH da7MBUq yYtqPR9psXVmWBibGz2diZq mbXgpDI0bANBqssjjf046Pm Cdn5ulTKYzfZHcLMkoYII9J 28kc7R9 FBPgUFRkLJK6xRG4iC5uwRh nbjogbGVmdDsgdmVydGljYW ilYUqiR246PUOntWieLmElj GllbnQg KRaaGEu8L7RrKsupsDW+PC9 8GOTqMN22gGPngSZjy4dulP o7QrMwQBVqGAO7yFfbVUtgx 3JkZXIt B00efFUnq8K6AHIoyRdbyAJ lIbTqlZP3pL5cZTpuixemh6 xzxzqxAbvcw2orhb94pF71L 29sIHdp ZHRoPSIzMCUiIHZhbGlnbj0 bxR1dHy7+QVRmqJF2cYZ6eO 1bEYEoLdY0VMpyJ032TtCre CIvPjxj f2tse3jgyRx4ChQ1HHSvxkY dvNeqVPF2k8MbWn51K05uSJ dpZHRoPSIyMCUiIHZhbGlnb w2hfX5p Ii8+HDCacUZ3uTZ5wN7tPfV cEoG8CKomR860VlPsoCZmGx sjL54fX6OjmTH+LGLxEum2Y CBzdHls KA3mhUZuZShhSx6rGBP8ToP aFkZcZRmeD0TsNYNzrvzgzy ybsUT2YISfEHYlnS90Yw4ma DogMTBw mWRDyA0fblmsj5krubgmXsK uGAZwYPi8BJx2MZRtqKocUf FyQQV4TjC9ONR4qBTciJ0px Glnbjog lZ3pM6WpIAJohevoQs34fA0 jMsLhVeA7QHcjLgj+U1RSQV cPQBMLZBNEN4YDW6RrXSLER ZD5G5Fa Cir8XHVzeJjyOU3hgTRiQRa vFp4gsYulgRbfJW3sFUAtqo njEXWimC7uSXMadOQonJgkU J3bRUBn ounvr808JxEqROS7KAZtsXQ vR0JxjX2sTqMjIYYqOMIyG8 DfmLFyORvbP892AYmzDmC6F HZlcnRp I3OgPMAmzYtzEgR9r9C0Di4 qEB7cSR2cULCwXL46ZA17sG Vaw3A9iWH1F2JlGVTbmjdlh mlnaHQ6 OQSmZDPzdP16rWQwZCnmDl2 zt6Q8c772KPSuCSCgfZ91Yz 5wbSikZNCvrBMCnT0lwwfkl 2xvcjog HeVrRXTrXLs4SIc0EMTdhAt mYuSyOKC8FhU9XFN0pKPgoH 2swVdfwtedaQ2dApc+NzQgW WVhcnM8 Y2UwGwd3CAXfkUtuRZ5aaWD yIYmyCf1rdKhefKfyRU7wCJ KqicecARPmyU8gPJKehQRju HfsGW1h FKBwkadrj372SoNmIVP9UHS otCBbN2GezB7rSfAsYTOzZO PgJ2JzfWEaOXbmK428YEfoO uH4UXQg qaJbD3HmLWImjOseQgM2o0A 5Wr0IBR9JMLU6R8GxHzg3SJ LwaDlnRG1esGZnEXvmPi0sd WdodDog XA3nGQFgebhbCVWmyL0bMFJ gqTRbfRmcYT9iBAScfdgmq9 23HeUfYXX0NYExhTQqH1Kwa V0sKsYb UVYxSQDyZ9CjpHGsEYkeJ66 6PGujCzA4CYZfcjGaS1EiKB LreAoeEaK6y3C6Lj8YmjSeo GllbnQ8 Z5KsSxeyhPS+GU45ZGWaKM9 8mARvpFUnn0wjyQg0ZmTwBN OsPFB6aVgtKIvet4KgMRMtA 29sbGFw y5G3VZWicShvlPWvGnJphNW 3hZ6iCWvlutlgm3opeezsGy hjo7tfsm82lP55Y78pQBglF HRoPSIz QQWgNNGtyPueul9keI8wOg3 +VOVkqKI1jCC5pD9hTwEkTp W1CCbfR107DrZdoSIdIpfsm 9pey6oi kMs3WtXeRXHlaoMltMxwQQX 5c6VjPx51B79vBZawBYBdCY DyGDXxOBYfmTbyfk1jhT1eP i8+PC9j n3tjvk74pJ16zFH+PHRkIHN 7uQjiVAvhNOZlfO5sZBjmEy Y8CUDbEqEdnX76xTAdEZmgT v4pkJwr iHzwQX5sNJVqswzdx319UnI zm0rhMCAezVEmRNiaVYC0C4 5kz8A5MZNoSPFdIEZ4nKF8a I5grDgq bjogbGVmdDsgdmVydGljYWw rSOsjV383IDGyhOchPsPyxE BbX5ymunQHPP3gLduqhXV+P HRkIHN0 mUmgZHvlLWXcuY0tVEBbV8s 7HuQlIiU8CHweF6UdquM4OB SmtNSoEWDkzGCJnA0xyqkzy 2xvcjog SdMbYLFdTTu8FAm2GYEueQu hEzCuVEN4VgB2GOG5sEIakS 6wrJqnbgfqsP6xCwz+RklOO jwvdGQ+ LLKpVSZ3rDakHDhgTRQiwV6 eRSHsK9a5BzOaBuF1ZXtxU9 VedcI3WEVvrUGsWNCoxMOYz S7bqjmb m1kkbvxtOsVzZEJiQKx9MLs 7RGEjeQruSgQtLYI1UwU3YX S8lCTyeV7vrBbardeabC5qU yc+TVJO OjwvdGQ+DRZiQHH6uTaiUVg uBKPrqZ2hHKAbN4i5MwWkCb R4SZopF6IneyP0HMMhpBJwW TBwdCBU xU6lqjmgt8vzppobBlJqNSE bWBc0GRi1GXQszRsiNyZxYK S7LlQ8OLJ5sLLfuI5bcXfiw temdL8s Oyc+AER1QDF8AM99XM35M5Y yPjwvdGFibGU+PHRhYmxlIH dpZHRoPScxMDAlJyBzdHlsZ U5xLs1l ZGV (more content not included)... [facility] Consultation/Specialist Note on 12-29-2023 Consultation/Specia list Note [id number]#1.00OT [facility] Consent Formson 12-28-2023 Consent Forms [id number]#1.00OT [facility] Consent Forms [id number]#1.00OT [facility] Outside Recordson 12-28-2023 Outside Records [id number]#1.00OT [facility] Provider Orderson 12-28-2023 Provider Orders [id number]#1.00OT [facility] Provider Orders [id number]#1.00OT [facility] Provider Orders [id number]#1.00OT [facility] Telemetry Stripson Telemetry Strips [id number]#1.00OT [facility] Inpatient Patient Summaryon 12-27-2023 Inpatient Patient Summary [facility] [address] [place] [address] Patient Discharge Instructions Name: ASHLEE BANERJEE : 1950 Patient Address: [address] [place] [address] Primary Care Provider: Name: COOPER ELLER MD After you are discharged if you find you have any questions, please, call [phone] ext [phone] to speak to a nurse. The Pharmacy at [facility] is open Wednesday through Wednesday from 9A to 6P and Wednesday and Wednesday from 9A to 5P Discharge Diagnosis: Arthritis of left hip Prescription Information: If you have been given a prescription for narcotics, seek immediate medical attention if you have any difficulty breathing or any sudden status changes such as confusion and sleepiness. If you or anyone you know is experiencing suicidal thoughts, mental health, alcohol and/or drug addiction problems; contact the [facility] 14/12 Crisis Hotline -Text 4HKXC to 022107. If you received any narcotics, sedation, or any other medication that causes drowsiness for the next 24 hours, unless otherwise directed: ? Do not drive a car. ? Do not operate machinery such as power tools, lawn mowers, drills, sewing machines, or stoves ? Avoid alcoholic beverages and drugs for allergies, nerves, or sleep ? Do not make important personal or business decisions or sign any legal documents [facility] would like to thank you for allowing us to assist you with your healthcare needs. The following includes patient education materials and information regarding your injury/illness. ASHLEE BANERJEE has been given the following list of follow-up instructions, prescriptions, and patient education materials: Follow-up Instructions With: Address: When: KEITH GABRIEL DO [address] [facility] [address] [place] [address] Within 1 to 2 weeks, only if needed With: Address: When: COOPER FRENCH Business (1) Comments: gave patient blue card to make follow up appt with pcp With: Address: When: Omar Dutta [address] [place] [address], [address] [place] [address] Business (1) 01/06/2024 10:00 AM Medications During the course of your visit, your medication list was updated with the most current information. The details of those changes are reflected below: New Medications [id number], [address], [place] [id number], [phone] apixaban (Eliquis 2.5 mg oral tablet) 1 tab(s) Oral (given by mouth) 2 times per day. Refills: 0. Medications to Continue That Have Not Changed Other Medications acetaminophen (Tylenol Extra Strength 500 mg oral tablet) 2 tab(s) Oral (given by mouth) 2 times per day as needed pain. atorvastatin (atorvastatin 20 mg oral tablet) 1 tab(s) Oral (given by mouth) every day. carvedilol (carvedilol 25 mg oral tablet) 1 tab(s) Oral (given by mouth) 2 times per day. cycloSPORINE ophthalmic (Restasis 0.05% ophthalmic emulsion) 1 drop Eye-Both 2 times per day. hydroCHLOROthiazide (hydroCHLOROthiazide 12.5 mg oral tablet) 1 tab(s) Oral (given by mouth) every day. iron polysaccharide (Ferrex-150 oral capsule) 1 cap(s) Oral (given by mouth) every day. levothyroxine (levothyroxine 100 mcg (0.1 mg) oral tablet) 1 tab(s) Oral (given by mouth) every day. meloxicam (meloxicam 15 mg oral tablet) 1 tab(s) Oral (given by mouth) every day. metFORMIN (metFORMIN 500 mg oral tablet) 1 tab(s) Oral (given by mouth) 2 times per day. multivitamin with minerals 1 tab(s) Oral (given by mouth) At bedtime. ocular lubricant (TheraTears) 2 Drops Eye-Both every day. omega-3 polyunsaturated fatty acids (omega-3 polyunsaturated fatty acids 200 mg oral capsule) 1 cap(s) Oral (given by mouth) At bedtime. polyethylene glycol 3350 (MiraLax oral powder for reconstitution) 17 gram Oral (given by mouth) every day. dissolve in water before taking. psyllium (psyllium 3.4 g/5.2 g oral powder for reconstitution) 1.7 gram Oral (given by mouth) every day as needed for constipation. Template Non-Formulary (Restore) 1 tab(s) Oral (given by mouth) every day. tiZANidine (tiZANidine 4 mg oral tablet) 1 tab(s) Oral (given by mouth) once a day (at bedtime) as needed spasm. traZODone (traZODone 50 mg oral tablet) 1 tab(s) Oral (given by mouth) once a day (at bedtime) as needed insomnia. ubiquinone (CoQ10 100 mg oral capsule) 1 tab(s) Oral (given by mouth) every day. ursodiol (ursodiol 500 mg oral tablet) 1 tab(s) Oral (given by mouth) 2 times per day. valsartan (valsartan 320 mg oral tablet) 1 tab(s) Oral (given by mouth) every day. No Longer Take the Following Medications aspirin (aspirin 81 mg oral capsule) 1 cap(s) Oral (given by mouth) every 4 hours.. not to exceed 12 capsules/day. It is important to always keep an active list of medications available so that you can share with other providers and manage your medications appropriately. As an addit (more content not included)... Normal [facility] Nutrition Noteon 12-27-2023 Nutrition Note Per intake records, Pt avg 50% of most meals, drinking supplements. Last BM 12/25. BS 116-205Hmg/dl past 24hrs; SSI in place. CRP 13.5H, alb 2.5L suspect low from inflammation coupled w/ post op anemia. H/H 8.8/25.9L slight improvement. Per medical rounds, discharge anticipated to SNF later today. Would continue to encourage oral nutritional supplements for higher protein/nutritional needs. Normal [facility] POCT Glucose Levelon 024 Glucose [Mass/Vol] 231 mg/dL High 74-118 [facility] Comment on above: Result Comment: OPR_ ID=IN_LIST,TGC FLAG = False,Meter:[id number] Manager Aviation:[id number] Michelle G[address] Performed By: #### 4 [id number] #### [facility] (DEFAULT) [address] [place] [address] 14970 Glucose [Mass/Vol] 116 mg/dL Normal -[address] [place] [address] Comment on above: Result Comment: OPR_ ID=IN_LIST,TGC FLAG = False,Meter:[id number] Manager Aviation:[id number] G[place] Performed By: #### 4 [id number] #### [facility] (DEFAULT) [address] [place] [address] [id number] Pharmacy Noteon 12-27-2023 Pharmacy Note I have personally reviewed the patient's medication list upon discharge including, prescription medications, OTC products, vitamins and supplements. Below are the following medications the patient is discharged on. New Medications [id number], [address], [place] [id number], [phone] apixaban (Eliquis 2.5 mg oral tablet) 1 tab(s) Oral (given by mouth) 2 times per day. Refills: 0. Medications to Continue That Have Not Changed Other Medications acetaminophen (Tylenol Extra Strength 500 mg oral tablet) 2 tab(s) Oral (given by mouth) 2 times per day as needed pain. atorvastatin (atorvastatin 20 mg oral tablet) 1 tab(s) Oral (given by mouth) every day. carvedilol (carvedilol 25 mg oral tablet) 1 tab(s) Oral (given by mouth) 2 times per day. cycloSPORINE ophthalmic (Restasis 0.05% ophthalmic emulsion) 1 drop Eye-Both 2 times per day. hydroCHLOROthiazide (hydroCHLOROthiazide 12.5 mg oral tablet) 1 tab(s) Oral (given by mouth) every day. iron polysaccharide (Ferrex-150 oral capsule) 1 cap(s) Oral (given by mouth) every day. levothyroxine (levothyroxine 100 mcg (0.1 mg) oral tablet) 1 tab(s) Oral (given by mouth) every day. meloxicam (meloxicam 15 mg oral tablet) 1 tab(s) Oral (given by mouth) every day. metFORMIN (metFORMIN 500 mg oral tablet) 1 tab(s) Oral (given by mouth) 2 times per day. multivitamin with minerals 1 tab(s) Oral (given by mouth) At bedtime. ocular lubricant (TheraTears) 2 Drops Eye-Both every day. omega-3 polyunsaturated fatty acids (omega-3 polyunsaturated fatty acids 200 mg oral capsule) 1 cap(s) Oral (given by mouth) At bedtime. polyethylene glycol 3350 (MiraLax oral powder for reconstitution) 17 gram Oral (given by mouth) every day. dissolve in water before taking. psyllium (psyllium 3.4 g/5.2 g oral powder for reconstitution) 1.7 gram Oral (given by mouth) every day as needed for constipation. Template Non-Formulary (Restore) 1 tab(s) Oral (given by mouth) every day. tiZANidine (tiZANidine 4 mg oral tablet) 1 tab(s) Oral (given by mouth) once a day (at bedtime) as needed spasm. traZODone (traZODone 50 mg oral tablet) 1 tab(s) Oral (given by mouth) once a day (at bedtime) as needed insomnia. ubiquinone (CoQ10 100 mg oral capsule) 1 tab(s) Oral (given by mouth) every day. ursodiol (ursodiol 500 mg oral tablet) 1 tab(s) Oral (given by mouth) 2 times per day. valsartan (valsartan 320 mg oral tablet) 1 tab(s) Oral (given by mouth) every day. No Longer Take the Following Medications aspirin (aspirin 81 mg oral capsule) 1 cap(s) Oral (given by mouth) every 4 hours.. not to exceed 12 capsules/day. Discharge Med Rec Notes: _ [Electronically Signed on: 12/27/2023 16:04 EDT] Omar Fischer PharmD [Verified on: 12/27/2023 16:04 EDT] Omar Fischer PharmD [facility] Progress Note - Nurseon 08 Progress Note - Nurse Report called over to [facility], spoke with Leonie regarding patient care here at [facility]. All questions and concerns were answered to satisfaction. Prior to leaving surgical site was cleansed after old dressing was removed, and a new dressing was applied. Patient tolerate well. Discharge instructions were given to patient and patient sister regarding medications, follow up appointment and restrictions. Both verbalized understanding. Patient sister will be transporting her to the [facility] and the facility was informed of this. All patient belongings were sent with the patient, clothing cell phones and chargers. Patient was discharge per wheelchair. [Electronically Signed on: 12/27/2023 16:15 EDT] Yarely Monique RN [Verified on: 12/27/2023 16:15 EDT] Yarely Monique RN Normal [facility] US Echocardiogram Completeon 12-27-2023 US Echocardiogram Complete APPROVED REPORT EXAM: Comprehensive 2D, Doppler, and color-flow Echocardiogram Patient Location: Room/Bed: 235 BSA: 1.63 m2BP: 159/72 mmHg Rhythm: NSR Indications: Elevated troponin, hsTn peaked @ 45 (currently 34), Chest pain vs GERD Past Med. Hx: DM, HTN, HLD, Former smoker Other Information Study Quality: Adequate Conclusion The left ventricular systolic function is normal. The left ventricular ejection fraction is within the normal range. LVEF is 65-70%. Right ventricle is mildly dilated. The right ventricular systolic function is normal. There is no significant aortic valvular stenosis. There is mild tricuspid regurgitation. Right ventricular systolic pressure is estimated at 41 mmHg. There is mild pulmonary hypertension. Left Ventricle The left ventricle is normal size. There is normal left ventricular wall thickness. The left ventricular systolic function is normal. The left ventricular ejection fraction is within the normal range. LVEF is 65-70%. There is normal LV segmental wall motion. The left ventricular diastolic function is normal. Right Ventricle Right ventricle is mildly dilated. The right ventricular systolic function is normal. Atria The left atrium size is normal. The right atrium size is normal. Aortic Valve The aortic valve is not well visualized. Aortic valve is trileaflet. Mild aortic valve sclerosis. Mildly decreased excursion of aortic valve leaflets. There is no aortic valvular stenosis. Calculated aortic valve area is 1.2 cm2 with maximum pressure gradient of 16.8 mmHg and mean pressure gradient of 9.2 mmHg. No aortic regurgitation is present. Mitral Valve Mitral valve leaflets are mildly thickened. Mild mitral annular calcification. Mitral valve leaflets open well. No evidence of mitral valve stenosis. Trace mitral regurgitation. Tricuspid Valve The tricuspid valve is normal in structure. There is mild tricuspid regurgitation. The right atrial pressure is estimated at 3 mmHg. Right ventricular systolic pressure is estimated at 41 mmHg. There is mild pulmonary hypertension. Pulmonic Valve The pulmonary valve is normal in structure. There is no pulmonic valvular regurgitation. Great Vessels The aortic root is normal in size. IVC is normal in size and collapses >50% with inspiration. Pericardium There is no pericardial effusion. 2D Dimensions RV Minor (Base)4.37 cmLV EDV (Teich) 92.85 mL IVSd 0.87 cm F: 0.6 - 0.9LV ESV (Teich) 32.21 mL LVDd 4.51 cm F: 3.9 - 5.3Left Atrium 3.05 cm F: 2.7 - 3.8 PWd 0.85 cm F: 0.6 - 1.0Sinus of Valsalva2.44 cm LVDs 2.90 (2.1 - 4.0 cm) Sinotubular Junction2.19 cm F: 2.3 - 2.9 LV Qezp719.87 g LVOT Diameter 1.70 cm IVC1.22 (<= 2.1cm) M-Mode Dimensions Aortic Root2.17 cm F: < 3.8MV EPSS1.00 ( < 0.7 cm) Aortic Cusp Exc1.20 (1.5 - 2.6 cm)TAPSE 2.6 (>1.7) Left Atrium3.23 cm F: 2.7 - 3.8 LV Volume - Method of Disks (Li's) Single Plane 2D LV VolumesBiplane 2D LV Volumes LV EDV A4C85.7 mLLV EDV BP78.98 mL F: 46 - 106 LV ESV A4C31.1 mLLV ESV BP26.5 mL LVEF(%) A4C63.8 %LVEF(%) BP66.46 % F: 54 - 74 LV EDV A2C69.0 mLLV EDV BP Index48.15 mL/m2 F: 29 - 61 LV ESV A2C20.1 mLSV (BP)52.49 mL LVEF(%) A2C70.9 %SV (BP) Index32.02 mL/m2 CO BP4.0 L/min Left Atrium Volume Systole (Method of Disks) Single Plane 4 CH 61.08 mLBiplane LA Rimngu37.90 mL Single Plane 2 CH39.17 mLLA ESV Index32.26 mL/m2 Right Atrium Area Systole RA Systolic Area A4C9.18 cm2RA Systolic Vol A4C19.10 mL Aortic Valve AoV Peak Velocity2.05 m/sLVOT Peak Velocity1.00 m/s AO Mean Velocity1.44 m/sLVOT Mean Velocity0.61 m/s AO Peak PG16.78 mmHgLVOT Peak PG4.00 mmHg AO Mean PG9.23 mmHgLVOT Mean PG1.82 mmHg AO V2 VTI39.28 cmLVOT V1 VTI20.40 cm ROBERT (Vmax)1.11 in1DACJ Area 2.28 cm2 ROBERT (VTI)1.18 cm2SV (LVOT) 46.46 mL Indexed ROBERT (VTI)0.72 cm2/m2 Mitral Valve MV Max Pvkjuuqt855.34 m/sMV PHT57.68 ms MV E Max Velocity0.92 m/sMVA (PHT)3.81 cm2 MV A Max Velocity0.77 m/sMR WQI909.19 cm E/A Ratio1.2MR Peak Velocity5.04 m/s MV Decel. Xtcu468.91 ms TDI Med e' Velocity7.33 cm/sMV E / Medial e' 12.54 Lat e' Velocity7.58 cm/sMV E / Lateral e' 12.14 TV S'14.67 cm/s Pulmonary Valve PV Peak Velocity0.98 m/sPV Peak PG3.82 mmHg PV Mean PG2.23 mmHg Tricuspid Valve TR Peak Velocity3.08 m/sRAP Estimate3.00 mmHg TR Peak PG37.95 ahBuLWGO66.95 mmHg Final Signed (Electronic Signature): Milton Pruitt MD 12/27/23 3:51 pm Technologist: JOAN Bonilla [facility] .Auto Diff 12-26-2023 Auto [facility] % 13 % High 06-[address] [facility] Comment on above: Performed By: #### 7 [id number] #### [facility] (DEFAULT) [address] [place] [address] Baso Abs# 0.1 x10 Normal 0.0-0.[address] [facility] Comment on above: Performed By: #### 7 [id number], [id number] #### [facility] (DEFAULT) [address] [place] [address] Basophils/100 WBC (Bld) 1.2 % Normal 0.2-2.[address] [facility] Comment on above: Performed By: #### 7 [id number] #### [facility] (DEFAULT) [address] [place] [address] Eos Abs# 0.1 x10 Normal 0.0-0.[address] [facility] Comment on above: Performed By: #### 7 [id number], [id number] #### [facility] (DEFAULT) [address] [place] [address] Eosinophils/100 WBC (Bld) 0.9 % Normal 0.9-4.[address] [facility] Comment on above: Performed By: #### 7 [id number], [id number] #### [facility] (DEFAULT) [address] [place] [address] Lymph Abs# 1.3 x10 Normal 1.3-2.[address] [facility] Comment on above: Performed By: #### 7 [id number], [id number] #### [facility] (DEFAULT) [address] [place] [address] Lymphocytes/100 WBC (Bld) 19 % Normal 14-[address] [facility] Comment on above: Performed By: #### 7 [id number], [id number] #### [facility] (DEFAULT) [address] [place] [address] [facility] Abs# 0.9 x10 High 0.0-0.[address] [facility] Comment on above: Performed By: #### 7 [id number], [id number] #### [facility] (DEFAULT) [address] [place] [address] Neut Abs# 4.7 x10 Normal 1.5-9.[address] [facility] Comment on above: Performed By: #### 7 [id number], [id number] #### [facility] (DEFAULT) [address] [place] [address] Neutrophils/100 WBC (Bld) 66 % Normal 44-[address] [facility] Comment on above: Performed By: #### 7 [id number], [id number] #### [facility] (DEFAULT) [address] [place] [address] CBC w/ Auto Diffon 4 Erythrocyte distribution width (RBC) [Ratio] 14.4 % Normal 11.5-15.[address] [facility] Comment on above: Performed By: #### 7 [id number], [id number] #### [facility] (DEFAULT) [address] [place] [address] Hematocrit (Bld) [Volume fraction] 25.9 % Low 33.7-40.[address] [facility] Comment on above: Performed By: #### 7 [id number], [id number] #### [facility] (DEFAULT) [address] [place] [address] Hemoglobin (Bld) [Mass/Vol] 8.8 g/dL Low 11.3-15.[address] [facility] Comment on above: Performed By: #### 7 [id number], [id number] #### [facility] (DEFAULT) [address] [place] [address] Man Diff? Auto Invalid Interpretation Code [facility] Comment on above: Performed By: #### 7 [id number], [id number] #### [facility] (DEFAULT) [address] [place] [address] MCH (RBC) [Entitic mass] 31 pg Normal 24-[address] [facility] Comment on above: Performed By: #### 7 [id number], [id number] #### [facility] (DEFAULT) [address] [place] [address] MCHC (RBC) [Mass/Vol] 34 g/dL Normal 26-[address] [facility] Comment on above: Performed By: #### 7 [id number], [id number] #### [facility] (DEFAULT) [address] [place] [address] MCV (RBC) [Entitic vol] 91 fL Normal 81-[address] [facility] Comment on above: Performed By: #### 7 [id number], [id number] #### [facility] (DEFAULT) [address] [place] [address] Platelet 86 x10 Low 138-[address] [facility] Comment on above: Performed By: #### 7 [id number], [id number] #### [facility] (DEFAULT) [address] [place] [address] 52446 Platelet mean volume (Bld) [Entitic vol] 9.3 fL Normal 6.3-10.[address] [facility] Comment on above: Performed By: #### 7 [id number], [id number] #### [facility] (DEFAULT) [address] [place] [address] 19897 RBC 2.83 x10 Low 3.70-5.[address] [facility] Comment on above: Performed By: #### 7 [id number], [id number] #### [facility] (DEFAULT) [address] [place] [address] 04282 WBC 7.0 x10 Normal 3.5-10.[address] [facility] Comment on above: Performed By: #### 7 [id number], [id number] #### [facility] (DEFAULT) [address] [place] [address] 07455 CMP Standardon 12-26-2023 eGFR Non AA 54 mL/min/1.73m2 Invalid Interpretation Code [facility] Comment on above: Performed By: #### 4 [id number] #### [facility] (DEFAULT) [address] [place] [address] 68866 eGFR AA >60 Invalid Interpretation Code [facility] Comment on above: Performed By: #### 4 [id number] #### [facility] (DEFAULT) [address] [place] [address] 62687 Albumin [Mass/Vol] 2.5 g/dL Low 3.5-5.0 [facility] Comment on above: Performed By: #### 4 [id number] #### [facility] (DEFAULT) [address] [place] [address] 96206 Albumin/Globulin [Mass ratio] 0.9 {ratio} Low 1.4-2.[address] [facility] Comment on above: Performed By: #### 4 [id number] #### [facility] (DEFAULT) [address] [place] [address] 63493 Alk Phos 73 IU/L Normal 32-[address] [facility] Comment on above: Performed By: #### 4 [id number] #### [facility] (DEFAULT) [address] [place] [address] 30989 ALT [Catalytic activity/Vol] 26.0 U/L Normal 14.0-54.[address] [facility] Comment on above: Performed By: #### 4 [id number] #### [facility] (DEFAULT) [address] [place] [address] 95635 AST [Catalytic activity/Vol] 31 U/L Normal 15-[address] [facility] Comment on above: Performed By: #### 4 [id number] #### [facility] (DEFAULT) [address] [place] [address] 76073 Bili Total 0.7 mg/dL Normal 0.3-1.[address] [facility] Comment on above: Performed By: #### 4 [id number] #### [facility] (DEFAULT) [address] [place] [address] 24403 Creatinine [Mass/Vol] 1.01 mg/dL Normal 0.60-1.[address] [facility] Comment on above: Performed By: #### 4 [id number] #### [facility] (DEFAULT) [address] [place] [address] 55132 Globulin (S) [Mass/Vol] 2.7 g/dL Normal 1.5-4.[address] [facility] Comment on above: Performed By: #### 4 [id number] #### [facility] (DEFAULT) [address] [place] [address] 54276 Osmolality 277 mOsm/L Invalid Interpretation Code [facility] Comment on above: Performed By: #### 4 [id number] #### [facility] (DEFAULT) [address] [place] [address] 80334 Protein [Mass/Vol] 5.2 g/dL Low 6.5-8.1 [facility] Comment on above: Performed By: #### 4 [id number] #### [facility] (DEFAULT) [address] [place] [address] 44852 Urea nitrogen [Mass/Vol] 27 mg/dL High 8-[address] [facility] Comment on above: Performed By: #### 4 [id number] #### [facility] (DEFAULT) [address] [place] [address] 28208 Urea nitrogen/Creatinine [Mass ratio] 26.7 mg/mg High 4.6-16.[address] [facility] Comment on above: Performed By: #### 4 [id number] #### [facility] (DEFAULT) [address] [place] [address] 26283 Anion gap [Moles/Vol] 8.2 mmol/L Normal 5.0-19.[address] [facility] Comment on above: Performed By: #### 4 [id number] #### [facility] (DEFAULT) [address] [place] [address] 05352 Calcium [Mass/Vol] 8.2 mg/dL Low 8.9-10.3 [facility] Comment on above: Performed By: #### 4 [id number] #### [facility] (DEFAULT) [address] [place] [address] 57811 Chloride [Moles/Vol] 108 mmol/L Normal 101-[address] [facility] Comment on above: Performed By: #### 4 [id number] #### [facility] (DEFAULT) [address] [place] [address] 53769 CO2 [Moles/Vol] 23 mmol/L Normal 21-[address] [facility] Comment on above: Performed By: #### 4 [id number] #### [facility] (DEFAULT) [address] [place] [address] 46084 Glucose [Mass/Vol] 128.0 mg/dL High 74.0-118.0 [facility] Comment on above: Performed By: #### 4 [id number] #### [facility] (DEFAULT) [address] [place] [address] 76514 Potassium [Moles/Vol] 4.2 mmol/L Normal 3.6-5.[address] [facility] Comment on above: Performed By: #### 4 [id number] #### [facility] (DEFAULT) [address] [place] [address] 21134 Sodium [Moles/Vol] 135.0 mmol/L Low 136.0-144.0 [facility] Comment on above: Performed By: #### 4 [id number] #### [facility] (DEFAULT) [address] [place] [address] 17217 CRPon 12-26-2023 CRP 13.5 mg/dL High <=0.[address] [facility] Comment on above: Performed By: #### 4 [id number] #### [facility] (DEFAULT) [address] [place] [address] 80041 POCT Glucose Levelon 024 Glucose [Mass/Vol] 205 mg/dL High [address] [place] [address] Comment on above: Result Comment: OPR_ ID=IN_LIST,TGC FLAG = False,Meter:[id number] Manager Aviation:Say Vasquez Performed By: #### 4 [id number] #### [facility] (DEFAULT) [address] [place] [address] 50966 Glucose [Mass/Vol] 146 mg/dL High [address] [place] [address] Comment on above: Result Comment: OPR_ ID=IN_LIST,TGC FLAG = False,Meter:[id number] Manager Aviation:[id number] Kayden Pritchett Performed By: #### 4 [id number] #### [facility] (DEFAULT) [address] [place] [address] 03018 Glucose [Mass/Vol] 205 mg/dL High [address] [place] [address] Comment on above: Result Comment: OPR_ ID=IN_LIST,TGC FLAG = False,Meter:[id number] Manager Aviation:[id number] Kayden Pritchett Performed By: #### 7 [id number], [id number] #### [facility] (DEFAULT) [address] [place] [address] 65886 Glucose [Mass/Vol] 129 mg/dL High [address] [place] [address] Comment on above: Result Comment: OPR_ ID=IN_LIST,TGC FLAG = False,Meter:[id number] Manager Aviation:Christiano Villa [place] Performed By: #### 4 [id number] #### [facility] (DEFAULT) [address] [place] [address] 36524 Progress Note - Nurseon 08-0 Progress Note - Nurse Dressing to left hip changed per order. Incision with sutures, intact and well approximated. No drainage or odor noted, incision pink in color. Dry, clean dressing applied, patient tolerate well. [Electronically Signed on: 12/26/2023 10:14 EDT] Yarely Monique RN [Verified on: 12/26/2023 10:14 EDT] Yarely Monique RN Normal [facility] TnI HSon 12-26-2023 Troponin I High Sensitivity 34.1 pg/mL Critically abnormal <=15.[address] [facility] Comment on above: Result Comment: Crit ical result TNIHS 34.1 pg/mL called to and read back by Alicia Ascencio at 26-Dec-2023 06:28 by Urban. Performed By: #### 4 [id number] #### [facility] (DEFAULT) [address] [place] [address] .Auto Diff 1on 12-25-2023 Auto [facility] % 13 % High -[address] [facility] Comment on above: Performed By: #### 1 [id number], [id number] ####[facility] (DEFAULT)[address] [place] [address] Baso Abs# 0.1 x10 Normal 0.0-0.[address] [facility] Comment on above: Performed By: #### 1 [id number], [id number] ####[facility] (DEFAULT)[address] [place] [address] Basophils/100 WBC (Bld) 0.6 % Normal 0.2-2.[address] [facility] Comment on above: Performed By: #### 1 [id number], [id number] ####[facility] (DEFAULT)[address] [place] [address] Eos Abs# 0.0 x10 Normal 0.0-0.[address] [facility] Comment on above: Performed By: #### 1 [id number], [id number] ####[facility] (DEFAULT)[address] [place] [address] 50187 Eosinophils/100 WBC (Bld) 0.5 % Low 0.9-4.[address] [facility] Comment on above: Performed By: #### 1 [id number], [id number] ####[facility] (DEFAULT)[address] [place] [address] 43335 Lymph Abs# 1.2 x10 Low 1.3-2.[address] [facility] Comment on above: Performed By: #### 1 [id number], [id number] ####[facility] (DEFAULT)[address] [place] [address] 60721 Lymphocytes/100 WBC (Bld) 14 % Normal 14-[address] [facility] Comment on above: Performed By: #### 1 [id number], [id number] ####[facility] (DEFAULT)[address] [place] [address] 10081 [facility] Abs# 1.1 x10 High 0.0-0.[address] [facility] Comment on above: Performed By: #### 1 [id number], [id number] ####[facility] (DEFAULT)[address] [place] [address] Neut Abs# 6.2 x10 Normal 1.5-9.[address] [facility] Comment on above: Performed By: #### 1 [id number], [id number] ####[facility] (DEFAULT)[address] [place] [address] 48031 Neutrophils/100 WBC (Bld) 72 % Normal 44-[address] [facility] Comment on above: Performed By: #### 1 [id number], [id number] ####[facility] (DEFAULT)[address] [place] [address] 24335 CBC w/ Auto Diffon 4 Erythrocyte distribution width (RBC) [Ratio] 14.5 % Normal 11.5-15.[address] [facility] Comment on above: Performed By: #### 1 [id number], [id number] #### [facility] (DEFAULT) [address] [place] [address] 88259 Hematocrit (Bld) [Volume fraction] 25.5 % Low 33.7-40.[address] [facility] Comment on above: Performed By: #### 1 [id number], [id number] #### [facility] (DEFAULT) [address] [place] [address] 65879 Hemoglobin (Bld) [Mass/Vol] 8.8 g/dL Low 11.3-15.[address] [facility] Comment on above: Performed By: #### 1 [id number], [id number] #### [facility] (DEFAULT) [address] [place] [address] Man Diff? Auto Invalid Interpretation Code [facility] Comment on above: Performed By: #### 1 [id number], [id number] #### [facility] (DEFAULT) [address] [place] [address] MCH (RBC) [Entitic mass] 31 pg Normal 24-[address] [facility] Comment on above: Performed By: #### 1 [id number], [id number] #### [facility] (DEFAULT) [address] [place] [address] MCHC (RBC) [Mass/Vol] 34 g/dL Normal 26-[address] [facility] Comment on above: Performed By: #### 1 [id number], [id number] #### [facility] (DEFAULT) [address] [place] [address] MCV (RBC) [Entitic vol] 90 fL Normal 81-[address] [facility] Comment on above: Performed By: #### 1 [id number], [id number] #### [facility] (DEFAULT) [address] [place] [address] Platelet 94 x10 Low 138-[address] [facility] Comment on above: Performed By: #### 1 [id number], [id number] #### [facility] (DEFAULT) [address] [place] [address] Platelet mean volume (Bld) [Entitic vol] 9.4 fL Normal 6.3-10.[address] [facility] Comment on above: Performed By: #### 1 [id number], [id number] #### [facility] (DEFAULT) [address] [place] [address] RBC 2.83 x10 Low 3.70-5.[address] [facility] Comment on above: Performed By: #### 1 [id number], [id number] #### [facility] (DEFAULT) [address] [place] [address] WBC 8.6 x10 Normal 3.5-10.[address] [facility] Comment on above: Performed By: #### 1 [id number], [id number] #### [facility] (DEFAULT) [address] [place] [address] CMP Standardon 12-25-2023 eGFR Non AA 40 mL/min/1.73m2 Invalid Interpretation Code [facility] Comment on above: Performed By: #### 7 [id number], [id number] #### [facility] (DEFAULT) [address] [place] [address] eGFR AA 48 mL/min/1.73m2 Invalid Interpretation Code [facility] Comment on above: Performed By: #### 7 [id number], [id number] #### [facility] (DEFAULT) [address] [place] [address] Albumin [Mass/Vol] 2.6 g/dL Low 3.5-5.0 [facility] Comment on above: Performed By: #### 7 [id number], [id number] #### [facility] (DEFAULT) [address] [place] [address] Albumin/Globulin [Mass ratio] 1.0 {ratio} Low 1.4-2.[address] [facility] Comment on above: Performed By: #### 7 [id number], [id number] #### [facility] (DEFAULT) [address] [place] [address] Alk Phos 81 IU/L Normal 32-[address] [facility] Comment on above: Performed By: #### 7 511709, [id number] #### [facility] (DEFAULT) [address] [place] [address] ALT [Catalytic activity/Vol] 30.0 U/L Normal 14.0-54.[address] [facility] Comment on above: Performed By: #### 7 076773, [id number] #### [facility] (DEFAULT) [address] [place] [address] Anion gap [Moles/Vol] 13.0 mmol/L Normal 5.0-19.[address] [facility] Comment on above: Performed By: #### 7 265904, [id number] #### [facility] (DEFAULT) [address] [place] [address] AST [Catalytic activity/Vol] 38 U/L Normal 15-[address] [facility] Comment on above: Performed By: #### 7 [id number], [id number] #### [facility] (DEFAULT) [address] [place] [address] Bili Total 0.6 mg/dL Normal 0.3-1.[address] [facility] Comment on above: Performed By: #### 7 [id number], [id number] #### [facility] (DEFAULT) [address] [place] [address] 06144 Calcium [Mass/Vol] 8.4 mg/dL Low 8.9-10.3 [facility] Comment on above: Performed By: #### 7 956524, [id number] #### [facility] (DEFAULT) [address] [place] [address] 62689 Chloride [Moles/Vol] 104 mmol/L Normal 101-[address] [facility] Comment on above: Performed By: #### 7 839799, [id number] #### [facility] (DEFAULT) [address] [place] [address] 18193 CO2 [Moles/Vol] 20 mmol/L Low 21-[address] [facility] Comment on above: Performed By: #### 7 915000, [id number] #### [facility] (DEFAULT) [address] [place] [address] 56783 Creatinine [Mass/Vol] 1.31 mg/dL High 0.60-1.[address] [facility] Comment on above: Performed By: #### 7 928053, [id number] #### [facility] (DEFAULT) [address] [place] [address] 83384 Globulin (S) [Mass/Vol] 2.6 g/dL Normal 1.5-4.[address] [facility] Comment on above: Performed By: #### 7 229615, [id number] #### [facility] (DEFAULT) [address] [place] [address] 52945 Glucose [Mass/Vol] 127.0 mg/dL High 74.0-118.0 [facility] Comment on above: Performed By: #### 7 421738, [id number] #### [facility] (DEFAULT) [address] [place] [address] 64054 Osmolality 277 mOsm/L Invalid Interpretation Code [facility] Comment on above: Performed By: #### 7 633830, [id number] #### [facility] (DEFAULT) [address] [place] [address] 45768 Potassium [Moles/Vol] 4.0 mmol/L Normal 3.6-5.[address] [facility] Comment on above: Performed By: #### 7 679209, [id number] #### [facility] (DEFAULT) [address] [place] [address] 65373 Protein [Mass/Vol] 5.2 g/dL Low 6.5-8.1 [facility] Comment on above: Performed By: #### 7 107584, [id number] #### [facility] (DEFAULT) [address] [place] [address] 46188 Sodium [Moles/Vol] 133.0 mmol/L Low 136.0-144.0 [facility] Comment on above: Performed By: #### 7 624367, [id number] #### [facility] (DEFAULT) [address] [place] [address] 68309 Urea nitrogen [Mass/Vol] 39 mg/dL High [address] [facility] Comment on above: Performed By: #### 7 889815, 97786423 #### [facility] (DEFAULT) [address] [place] [address] 71440 Urea nitrogen/Creatinine [Mass ratio] 29.7 mg/mg High 4.6-16.[address] [facility] Comment on above: Performed By: #### 7 572085, [id number] #### [facility] (DEFAULT) [address] [place] [address] 95760 POCT Glucose Levelon 024 Glucose [Mass/Vol] 246 mg/dL High [address] Comment on above: Result Comment: OPR_ ID=IN_LIST,TGC FLAG = False,Meter:[id number] Manager Aviation:[id number] Diana Holguinah Performed By: #### 4 [id number] #### [facility] (DEFAULT) [address] [place] [address] 43431 Glucose [Mass/Vol] 149 mg/dL High [address] Comment on above: Result Comment: OPR_ ID=IN_LIST,TGC FLAG = False,Meter:[id number] Manager Aviation:90Kwan Pritchett Performed By: #### 4 [id number] #### [facility] (DEFAULT) [address] [place] [address] Glucose [Mass/Vol] 263 mg/dL High [address] [facility] Comment on above: Result Comment: OPR_ ID=IN_LIST,TGC FLAG = False,Meter:[id number] Manager Aviation:[id number] Kayden Yarely Performed By: #### 4 [id number] #### [facility] (DEFAULT) [address] [place] [address] Glucose [Mass/Vol] 109 mg/dL Normal [address] [place] [address] Comment on above: Result Comment: OPR_ ID=IN_LIST,TGC FLAG = False,Meter:[id number] Manager Aviation:[id number] Kayden Yarely Performed By: #### 7 [id number], [id number] #### [facility] (DEFAULT) [address] [place] [address] Performed By: #### 4 [id number] #### [facility] (DEFAULT) [address] [place] [address] TnI HSon 12-25-2023 Troponin I High Sensitivity 35.3 pg/mL Critically abnormal <=15.[address] [facility] Comment on above: Result Comment: Smootht ical result TNIHS 35.3 pg/mL called to and read back by Alicia ascencio at 25-Dec-2023 06:24 by Urban. Performed By: #### 7 [id number], [id number] #### [facility] (DEFAULT) [address] [place] [address] UA w Culture if Ind Standard on 12-25-2023 Breakpoint UA Normal [facility] Comment on above: Performed By: #### 1 [id number] #### [facility] (DEFAULT) [address] [place] [address] Color (U) Yellow Normal [facility] Comment on above: Performed By: #### 1 [id number] #### [facility] (DEFAULT) [address] [place] [address] Culture? Not Indicated Invalid Interpretation Code [facility] Comment on above: Result Comment: Resu lt created by rule GL_MAGR_ADD_UA_CULT1 Performed By: #### 1 [id number] #### [facility] (DEFAULT) [address] [place] [address] Glucose (U) [Mass/Vol] Negative Normal [facility] Comment on above: Performed By: #### 1 [id number] #### [facility] (DEFAULT) [address] [place] [address] 32844 Ketones Ql (U) Negative Normal [facility] Comment on above: Performed By: #### 1 [id number] #### [facility] (DEFAULT) [address] [place] [address] 69869 Micro? Not Indicated Invalid Interpretation Code [facility] Comment on above: Result Comment: Resu lt created by rule GL_MAGR_ADD_UA_MICRO Performed By: #### 1 [id number] #### [facility] (DEFAULT) [address] [place] [address] UA Bilirubin Negative Normal [facility] Comment on above: Performed By: #### 1 [id number] #### [facility] (DEFAULT) [address] [place] [address] 65232 UA Blood Negative Normal NEGATIVE [facility] Comment on above: Performed By: #### 1 [id number] #### [facility] (DEFAULT) [address] [place] [address] 36737 UA Clarity CLEAR Normal CLEAR [facility] Comment on above: Performed By: #### 1 [id number] #### [facility] (DEFAULT) [address] [place] [address] 31051 UA Leuk Est Negative Normal NEGATIVE [facility] Comment on above: Performed By: #### 1 [id number] #### [facility] (DEFAULT) [address] [place] [address] 18792 UA Nitrite Negative Normal NEGATIVE [facility] Comment on above: Performed By: #### 1 [id number] #### [facility] (DEFAULT) [address] [place] [address] 41053 UA pH 6.0 Normal 5-[address] [facility] Comment on above: Performed By: #### 1 [id number] #### [facility] (DEFAULT) [address] [place] [address] UA Protein Negative Normal NEGATIVE [facility] Comment on above: Performed By: #### 1 [id number] #### [facility] (DEFAULT) [address] [place] [address] UA Spec Grav 1.015 Normal 1.001-1.[address] [facility] Comment on above: Performed By: #### 1 [id number] #### [facility] (DEFAULT) [address] [place] [address] UA Urobilinogen 0.2 mg/dL Normal 0.2-1.[address] [facility] Comment on above: Performed By: #### 1 [id number] #### [facility] (DEFAULT) [address] [place] [address] Urine Source Clean Catch Normal [facility] Comment on above: Performed By: #### 1 [id number] #### [facility] (DEFAULT) [address] [place] [address] XR Chest 1 View Frontalon XR Chest 1 View Frontal EXAMINATION: XR Chest 1 View Frontal HISTORY: Fever COMPARISON: XR chest 11/24/2023 FINDINGS: LUNGS: No significant pulmonary parenchymal abnormalities. VASCULATURE: No increased pulmonary vasculature. PLEURA: Mild blunting of the costophrenic angles bilaterally. CARDIAC: No cardiomegaly or cardiac silhouette abnormality. MEDIASTINUM: No visible mass or adenopathy. BONES: No fracture or visible bone lesion. OTHER: Negative. IMPRESSION: 1. Suspect small bilateral pleural effusions. Lungs are otherwise clear. Final Dictated by: Nikko Barbosa MD Dictated DT/TM: 12/25/23 8:39 Signed (Electronic Signature): Nikko Barbosa MD 12/25/23 8:40 am Technologist: B[place] ROSARIO Normal [facility] .Auto Diff 112-24-2023 Auto [facility] % 14 % High -[address] [facility] Comment on above: Performed By: #### 7 [id number], [id number], [id number] ####[facility] (DEFAULT)[address] [place] [address] Baso Abs# 0.0 x10 Normal 0.0-0.[address] [facility] Comment on above: Performed By: #### 7 435709, [id number], [id number] ####[facility] (DEFAULT)[address] [place] [address] 40935 Basophils/100 WBC (Bld) 1.0 % Normal 0.2-2.[address] [facility] Comment on above: Performed By: #### 7 075393, [id number], [id number] ####[facility] (DEFAULT)[address] [place] [address] 51535 Eos Abs# 0.0 x10 Normal 0.0-0.[address] [facility] Comment on above: Performed By: #### 7 797443, 47461461, [id number] ####[facility] (DEFAULT)[address] [place] [address] 55032 Eosinophils/100 WBC (Bld) 1.0 % Normal 0.9-4.[address] [facility] Comment on above: Performed By: #### 7 260436, 69606041, [id number] ####[facility] (DEFAULT)[address] [place] [address] 04207 Lymph Abs# 0.7 x10 Low 1.3-2.[address] [facility] Comment on above: Performed By: #### 7 805805, 96552316, [id number] ####[facility] (DEFAULT)[address] [place] [address] 60532 Lymphocytes/100 WBC (Bld) 18 % Normal 14-[address] [facility] Comment on above: Performed By: #### 7 980658, [id number], [id number] ####[facility] (DEFAULT)[address] [place] [address] 04647 [facility] Abs# 0.6 x10 Normal 0.0-0.[address] [facility] Comment on above: Performed By: #### 7 541053, [id number], [id number] ####[facility] (DEFAULT)[address] [place] [address] 61189 Neut Abs# 2.7 x10 Normal 1.5-9.[address] [facility] Comment on above: Performed By: #### 7 415084, 98798041, [id number] ####[facility] (DEFAULT)[address] [place] [address] 46697 Neutrophils/100 WBC (Bld) 66 % Normal 44-[address] [facility] Comment on above: Performed By: #### 7 340817, 40690194, [id number] ####[facility] (DEFAULT)[address] [place] [address] 86193 CBC w/ Auto Diffon 4 Erythrocyte distribution width (RBC) [Ratio] 14.4 % Normal 11.5-15.[address] [facility] Comment on above: Order Comment: I spo ke with Arabella Denis RN and asked if I would get the patient's blood work before 0600. Arabella had said that it was okay to do so. 12/24/2023 05:35:43 EDT Performed By: #### 7 205408, [id number], [id number] ####[facility] (DEFAULT)[address] [place] [address] 37274 Hematocrit (Bld) [Volume fraction] 25.8 % Low 33.7-40.[address] [facility] Comment on above: Order Comment: I spo ke with Arabella Denis RN and asked if I would get the patient's blood work before 0600. Arabella had said that it was okay to do so. 12/24/2023 05:35:43 EDT Performed By: #### 7 577859, 84403810, [id number] ####[facility] (DEFAULT)[address] [place] [address] 70456 Hemoglobin (Bld) [Mass/Vol] 8.6 g/dL Low 11.3-15.[address] [facility] Comment on above: Order Comment: I spo ke with Arabella Denis RN and asked if I would get the patient's blood work before 0600. Arabella had said that it was okay to do so. 12/24/2023 05:35:43 EDT Performed By: #### 7 346800, [id number], [id number] ####[facility] (DEFAULT)[address] [place] [address] 77712 Man Diff? Auto Invalid Interpretation Code [facility] Comment on above: Order Comment: I spo ke with Arabella Denis RN and asked if I would get the patient's blood work before 0600. Arabella had said that it was okay to do so. 12/24/2023 05:35:43 EDT Performed By: #### 7 903194, 64186981, [id number] ####[facility] (DEFAULT)[address] [place] [address] 29518 MCH (RBC) [Entitic mass] 30 pg Normal 24-[address] [facility] Comment on above: Order Comment: I spo ke with Arabella Denis RN and asked if I would get the patient's blood work before 0600. Arabella had said that it was okay to do so. 12/24/2023 05:35:43 EDT Performed By: #### 7 490513, [id number], [id number] ####[facility] (DEFAULT)[address] [place] [address] 02723 MCHC (RBC) [Mass/Vol] 33 g/dL Normal 26-[address] [facility] Comment on above: Order Comment: I spo ke with Arabella Denis RN and asked if I would get the patient's blood work before 0600. Arabella had said that it was okay to do so. 12/24/2023 05:35:43 EDT Performed By: #### 7 421329, 53573943, [id number] ####[facility] (DEFAULT)[address] [place] [address] 88372 MCV (RBC) [Entitic vol] 92 fL Normal 81-[address] [facility] Comment on above: Order Comment: I spo ke with Arabella Denis RN and asked if I would get the patient's blood work before 0600. Arabella had said that it was okay to do so. 12/24/2023 05:35:43 EDT Performed By: #### 7 486338, 10004815, [id number] ####[facility] (DEFAULT)[address] [place] [address] 43033 Platelet 90 x10 Low 138-[address] [facility] Comment on above: Order Comment: I spo ke with Arabella Denis RN and asked if I would get the patient's blood work before 0600. Arabella had said that it was okay to do so. 12/24/2023 05:35:43 EDT Performed By: #### 7 179935, 48117782, [id number] ####[facility] (DEFAULT)[address] [place] [address] 91679 Platelet mean volume (Bld) [Entitic vol] 9.9 fL Normal 6.3-10.[address] [facility] Comment on above: Order Comment: I spo ke with Arabella Denis RN and asked if I would get the patient's blood work before 0600. Arabella had said that it was okay to do so. 12/24/2023 05:35:43 EDT Performed By: #### 7 382422, 51334882, [id number] ####[facility] (DEFAULT)[address] [place] [address] 62049 RBC 2.80 x10 Low 3.70-5.[address] [facility] Comment on above: Order Comment: I spo ke with Arabella Denis RN and asked if I would get the patient's blood work before 0600. Arabella had said that it was okay to do so. 12/24/2023 05:35:43 EDT Performed By: #### 7 151842, 69053679, [id number] ####[facility] (DEFAULT)[address] [place] [address] 51104 WBC 4.1 x10 Normal 3.5-10.[address] [facility] Comment on above: Order Comment: I spo ke with Arabella Denis RN and asked if I would get the patient's blood work before 0600. Arabella had said that it was okay to do so. 12/24/2023 05:35:43 EDT Performed By: #### 7 964200, 86389702, [id number] ####[facility] (DEFAULT)[address] [place] [address] 48349 Electrolyte Panel Standardon 12-24-2023 Anion gap [Moles/Vol] 10.2 mmol/L Normal 5.0-19.[address] [facility] Comment on above: Order Comment: I spo ke with Arabella Denis RN and asked if I would get the patient's blood work before 0600. Arabella had said that it was okay to do so. 12/24/2023 05:35:43 EDT Performed By: #### 7 472218, [id number], [id number] ####[facility] (DEFAULT)[address] [place] [address] 38745 Chloride [Moles/Vol] 107 mmol/L Normal 101-[address] [facility] Comment on above: Order Comment: I spo ke with Arabella Denis RN and asked if I would get the patient's blood work before 0600. Arabella had said that it was okay to do so. 12/24/2023 05:35:43 EDT Performed By: #### 7 537007, [id number], [id number] ####[facility] (DEFAULT)[address] [place] [address] 08635 CO2 [Moles/Vol] 21 mmol/L Normal 21-[address] [facility] Comment on above: Order Comment: I spo ke with Arabella Denis RN and asked if I would get the patient's blood work before 0600. Arabella had said that it was okay to do so. 12/24/2023 05:35:43 EDT Performed By: #### 7 584830, [id number], [id number] ####[facility] (DEFAULT)[address] [place] [address] 64727 Potassium [Moles/Vol] 4.2 mmol/L Normal 3.6-5.[address] [facility] Comment on above: Order Comment: I spo ke with Arabella Denis RN and asked if I would get the patient's blood work before 0600. Arabella had said that it was okay to do so. 12/24/2023 05:35:43 EDT Performed By: #### 7 979628, [id number], [id number] ####[facility] (DEFAULT)[address] [place] [address] Sodium [Moles/Vol] 134.0 mmol/L Low 136.0-144.0 [facility] Comment on above: Order Comment: I spo ke with Arabella Denis RN and asked if I would get the patient's blood work before 0600. Arabella had said that it was okay to do so. 12/24/2023 05:35:43 EDT Performed By: #### 7 178609, [id number], [id number] ####[facility] (DEFAULT)[address] [place] [address] MAGR Postoperative Recordon 12-24-2023 MAGR Postoperative Record MAGR Phase II Record Summary Primary Physician: KEITH GABRIEL DO Finalized Date/Time: 12/24/23 06:58:45 Pt. Name: ASHLEE BANERJEE /Sex: 1950 FEMALE Med Rec #: [id number] Physician: KEITH GABRIEL DO Financial #: [id number] Pt. Type: D Room/Bed: [facility] Admit/Disch: 12/23/23 05:40:58 - Institution: Phase II Case Times MAGR Pre-Care Text: Patient is free from s/s of injury. Patient remains free from compromised physical state related to surgery or anesthesia. Patient comfort maintained. Patient/family verbalize understanding of discharge instructions. Entry 1 In PACU II 12/23/23 11:08:00 Discharge from PACU 12/23/23 14:29:00 II Last Modified By: Hailee Rosa RN 12/24/23 06:58:42 Post-Care Text: The patient remains free from s/s of injury. Patient's vital signs stable, circulation maintained, return to preop mental and physical status, opsite/dressing intact, minimal or absent nausea and vomiting, tolerates po intake. Patient verbalizes adequate pain control. Patient/family express understanding of discharge instructions. Finalized By: Hailee Rosa RN Document Signatures Signed By: Hailee Rosa RN 12/24/23 06:[address] [facility] Nutrition Noteon 12-24-2023 Nutrition Note Pt admitted for scheduled Lt hip surgery. Diet advanced to Regular w/ usual post op vitamins/minerals and oral nutritional supplements in place. No chewing/swallowing problems identified. Pre-op wt 64.2kg, no wt hx on file, denied any wt changes. Recent labs Na 134L, BS 93-110H, H/H 8.6/25.8L suspect from post op losses. 7/3 hgbA1C 6.3%. Will adjust diet to include DM restrictions to aid in consistent CHO intake. No BM since prior to surgery; psyllium and colace in place. Other than age greater than 65y w/ surgery, pt appears at low nutrition risk. Will monitor intake, wts, labs. [facility] Pharmacy Noteon 12-24-2023 Pharmacy Note The following medications(s) has been reviewed for renal dose adjustment per P &T protocol based on the patient's current creatinine clearance: Medication: Enoxaparin 30mg subq daily Estimated CrCl: 29.7 ml/min _ (most recent cr from 11/24/23) Action: No change required Changes Made: [Electronically Signed on: 12/24/2023 16:46 EDT] Kieran Alexandra PharmD [Verified on: 12/24/2023 16:46 EDT] Kieran Alexandra PharmD [facility] Progress Note - Nurseon Progress Note - Nurse Dressing to left hip removed- scant amount of old drainage on dressing. Wound intact with stitches, well approximated. Minimal bruising and swelling noted. Redressed with optifoam. Patient tolerated well. [Electronically Signed on: 12/24/2023 13:58 EDT] Millicent Henry RN [Verified on: 12/24/2023 13:58 EDT] Millicent Henry RN [facility] Progress Note - Nurse Patient complains of pain in middle of chest since swallowing pills, vitals checked- B/P 117/57 pulse [address]%. Dr. Adame in room and aware of same/ EKG ordered [Electronically Signed on: 12/24/2023 11:41 EDT] Millicent Henry RN [Verified on: 12/24/2023 11:41 EDT] Millicent Henry RN [facility] Progress Note - Nurse Patient complaining of nausea and the feeling that her pills are caught in her esophagus / Patient also states she feels she is having pain in her jaw- Zofran 4mg IV given, along with alcohol pad placed under nose- patient states she is feeling relief after. B/P 128/71, pulse 80, pulse ox 99%. [Electronically Signed on: 12/24/2023 10:39 EDT] Millicent Henry RN [Verified on: 12/24/2023 10:39 EDT] Millicent Henry RN [facility] Progress Note - Nurse Attempted to ambulate patient to restroom as she stated she feels capable. Noted toilet riser not in place. RN places toilet riser in place. Begin mod x2 assist patient out of bed. Patient unable to lift non surgical leg off ground and attempted to shuffle to restroom. After less than a few steps, patient knee rosalinda and patient complains of feeling weak. Patient returned to bed and bedpan used per patient request. BP remains soft at this time. [Electronically Signed on: 12/24/2023 02:55 EDT] Lena Persaud RN [Verified on: 12/24/2023 02:55 EDT] Lena Persaud RN Normal [facility] TnI HSon 12-24-2023 Troponin I High Sensitivity 41.1 pg/mL Critically abnormal <=15.[address] [facility] Comment on above: Result Comment: Crit ical result TNIHS 41.1 pg/mL called to and read back by Adam Lynch at 24-Dec-2023 19:55 by renetta. Performed By: #### 7 [id number], [id number] #### [facility] (DEFAULT) [address] [place] [address] Troponin I High Sensitivity 45.3 pg/mL Critically abnormal <=15.[address] [facility] Comment on above: Result Comment: Crit ical result TNIHS 45.3 pg/mL called to and read back by Adam Lynch at 24-Dec-2023 14:45 by renetta. Performed By: #### 7 [id number], [id number] #### [facility] (DEFAULT) [address] [place] [address] .Auto Diff 1on 12-23-2023 Auto [facility] % 13 % High 1-[address] [facility] Comment on above: Performed By: #### 1 [id number], [id number], 06832813, 1967976, [id number], [id number] ####[facility] (DEFAULT)[address] [place] [address] Baso Abs# 0.0 x10 Normal 0.0-0.[address] [facility] Comment on above: Performed By: #### 1 [id number], [id number], 63461634, 8882884, [id number], [id number] ####[facility] (DEFAULT)[address] [place] [address] Basophils/100 WBC (Bld) 0.7 % Normal 0.2-2.[address] [facility] Comment on above: Performed By: #### 1 [id number], 36660462, 96066734, 8094634, [id number], 2809122 ####[facility] (DEFAULT)[address] [place] [address] Eos Abs# 0.1 x10 Normal 0.0-0.[address] [facility] Comment on above: Performed By: #### 1 [id number], 22025189, 56636449, 0273756, [id number], 1111563 ####[facility] (DEFAULT)[address] [place] [address] Eosinophils/100 WBC (Bld) 4.9 % High 0.9-4.[address] [facility] Comment on above: Performed By: #### 1 [id number], 32532171, 80747390, 1521469, [id number], 8479285 ####[facility] (DEFAULT)[address] [place] [address] Lymph Abs# 0.9 x10 Low 1.3-2.[address] [facility] Comment on above: Performed By: #### 1 [id number], 26943491, 12971347, 8543770, [id number], [id number] ####[facility] (DEFAULT)[address] [place] [address]77 Lymphocytes/100 WBC (Bld) 24 % Normal 14-[address] [facility] Comment on above: Performed By: #### 1 [id number], 07476745, 71080897, 4927436, [id number], 7189670 ####[facility] (DEFAULT)[address] [place] [address] [facility] Abs# 0.4 x10 Normal 0.0-0.[address] [facility] Comment on above: Performed By: #### 1 7202354, 22497170, 02386409, 7065154, [id number], 5568495 ####[facility] (DEFAULT)[address] [place] [address] Neut Abs# 2.2 x10 Normal 1.5-9.[address] [facility] Comment on above: Performed By: #### 1 0540233, 59241477, 04658654, 0032382, [id number], 8092284 ####[facility] (DEFAULT)[address] [place] [address] Neutrophils/100 WBC (Bld) 58 % Normal 44-[address] [facility] Comment on above: Performed By: #### 1 3798612, 19382674, 89824847, 8495762, [id number], 5846676 ####[facility] (DEFAULT)[address] [place] [address] ABORhon 12-23-2023 ABO and Rh group Nom (Bld) Hx Check: Not Found Anti-A: 4+ Anti-B: 0 Anti-D: 4+ DCon: NT A1: 0 B: 4+ ABORh Interp: A POS Invalid Interpretation Code [facility] Comment on above: Performed By: #### 1 [id number], 30084314, 26833381, 0933597, [id number], [id number] ####[facility] (DEFAULT)[address] [place] [address] ABORh Retypeon 12-23-2023 ABO and Rh group Nom (Bld) Ordered by Discern. Anti-A: 4+ Anti-B: 0 Anti-D: 4+ DCon: NT A1: 0 B: 4+ ABORh Retype: A POS Invalid Interpretation Code [facility] Comment on above: Performed By: #### 1 [id number], 32384090, 21289025, 4515388, [id number], 9725560 ####[facility] (DEFAULT)[address] [place] [address] ABSC Gelon 12-23-2023 ABSC Gel Negative Normal [facility] Comment on above: Performed By: #### 1 [id number], 40780842, 13047509, 3398693, [id number], 1732841 ####[facility] (DEFAULT)[address] [place] [address] Anesthesia Noteon 12-23-2023 Anesthesia Note Patient: ASHLEE BANERJEE Age: 73 years Sex: FEMALE : 1950 Associated Diagnoses: None Author: George Beverly MD Postoperative Information Post Operative Note: Post Anesthesia Care Unit. Anesthetic utilized: General. Regional: Fascia Iliaca (SIFI) block for post-operative pain control. . Health Status Allergies: Allergic Reactions (All) Severe Penicillin- Swelling. Moderate Morphine- Rash. Nickel- Rash. Sulfite Allergy- Itching. Physical Examination Vital Signs (last 24 hrs) Last Charted Temp Temporal L 35.6 DegC (DEC 22 06:15) Heart Rate Monitored 71 bpm (DEC 22:) Resp Rate 16 br/min (DEC 22:00) SBP 124 mmHg (DEC 22:00) DBP 63 mmHg (DEC 22:) General: Alert and oriented, No acute distress. Respiratory: Respirations are non-labored. Cardiovascular: Normal rate, Regular rhythm. Neurologic: Alert, Oriented. Review / Management Condition: Stable. Assessment Anesthetic outcome No anesthetic complications noted. Adequate pain relief. No Complaint of nausea and vomiting. Plan Transfer/ Discharge: Patient can be discharged from PACU when criteria met. [Electronically Signed on: 12/23/2023 11:11 EDT] George Beverly MD [Verified on: 12/23/2023 11:11 EDT] George Beverly MD [facility] Anesthesia Note Patient: ASHLEE BANERJEE Age: 73 years Sex: FEMALE : 1950 Associated Diagnoses: None Author: George Beverly MD Preoperative Information Anesthesia history: Patient history: No nausea and vomiting with anesthesia, No prior anesthesia problems, No problems with local anesthetics. Review of Systems Constitutional: Negative. Respiratory: No shortness of breath. Cardiovascular: No chest pain. Health Status Allergies: Allergic Reactions (All) Severe Penicillin- Swelling. Moderate Morphine- Rash. Nickel- Rash. Sulfite Allergy- Itching. Current medications: Home Medications (21) Active aspirin 81 mg oral capsule 81 mg = 1 cap(s), Oral, q4hr atorvastatin 20 mg oral tablet 20 mg = 1 tab(s), Oral, Daily carvedilol 25 mg oral tablet 25 mg = 1 tab(s), Oral, BID CoQ10 100 mg oral capsule 1 tab(s), Oral, Daily Ferrex-150 oral capsule 150 mg = 1 cap(s), Oral, Daily hydroCHLOROthiazide 12.5 mg oral tablet 12.5 mg = 1 tab(s), Oral, Daily levothyroxine 100 mcg (0.1 mg) oral tablet 100 mcg = 1 tab(s), Oral, Daily meloxicam 15 mg oral tablet 15 mg = 1 tab(s), Oral, Daily metFORMIN 500 mg oral tablet 500 mg = 1 tab(s), Oral, BID MiraLax oral powder for reconstitution 17 gm, Oral, Daily multivitamin with minerals 1 tab(s), Oral, HS omega-3 polyunsaturated fatty acids 200 mg oral capsule 200 mg = 1 cap(s), Oral, HS psyllium 3.4 g/5.2 g oral powder for reconstitution 1.7 gm, PRN, Oral, Daily Restasis 0.05% ophthalmic emulsion 1 drop, Eye-Both, BID Restore 1 tab(s), Oral, Daily TheraTears 2 drop(s), Eye-Both, Daily tiZANidine 4 mg oral tablet 4 mg = 1 tab(s), PRN, Oral, Once a day (at bedtime) traZODone 50 mg oral tablet 50 mg = 1 tab(s), PRN, Oral, Once a day (at bedtime) Tylenol Extra Strength 500 mg oral tablet 1,000 mg = 2 tab(s), PRN, Oral, BID ursodiol 500 mg oral tablet 500 mg = 1 tab(s), Oral, BID valsartan 320 mg oral tablet 320 mg = 1 tab(s), Oral, Daily Problem list (past medical history): All Problems Cervical spondylosis with myelopathy and radiculopathy / SNOMED CT 0007412591 / Confirmed Diabetes / SNOMED CT 552810337 / Confirmed Gallstones / SNOMED CT 973428048 / Confirmed History of colon polyps / SNOMED CT 3511918384 / Confirmed HTN (hypertension) / SNOMED CT 9057822297 / Confirmed Hypothyroidism / SNOMED CT 28731707 / Confirmed Hernia, incisional / SNOMED CT 092423486 / Confirmed Overactive bladder / SNOMED CT 4274050916 / Confirmed Primary biliary cholangitis / SNOMED CT 0110793708 / Confirmed Histories Family History: Diabetes mellitus type II Mother Hypothyroidism Mother Thyroid cancer Sister Alzheimer's disease Mother Father CABG - Coronary artery bypass graft Father Procedure history: History of cervical spine surgery ([id number]) on 03/31/2023 at 72 Years. Comments: 11/24/2023 14:39 Swati Elizalde RN pins placed to open spinal canal Hysterectomy (173696321). Arthroplasty of right knee (2605398807). Tonsillectomy and adenoidectomy (613279467). Excision of ganglion cyst of hand (0917246566). Arthroplasty of left knee (7589378596). Colonoscopy (302557870). Rotator cuff repair (297099780). Comments: 11/24/2023 14:57 Swati Elizalde RN Bilateral shoulders Repair of incisional hernia (434551141). Social History Electronic Cigarette/Vaping Assessment Electronic Cigarette Use: Never. Alcohol Assessment Use: Past. Beer, Wine, Liquor, 1-2 times per week Tobacco Assessment Former tobacco user Tobacco Use:. 1ppd per day. Comment: Quit 1999 Substance Abuse Assessment Substance use: Never. . Social & Psychosocial Habits Alcohol 11/24/2023 Alcohol Use: Past Type: Beer, Liquor, Wine Frequency: 1-2 times per week Substance Use 11/24/2023 Substance use: Never Tobacco 11/24/2023 Smoking tobacco use: Former tobacco user Number used per day: 1ppd Comment: Quit 1999 - 11/24/2023 15:04 - Swati Reddy RN Electronic Cigarette/Vaping 11/24/2023 Electronic Cigarette Use: Never . Physical Examination VS/Measurements Vital Signs (last 24 hrs) Last Charted Temp Temporal L 35.6 DegC (DEC 22 06:15) Heart Rate Peripheral 74 bpm (DEC 22 06:15) Resp Rate 16 br/min (DEC 22:15) SBP 125 mmHg (DEC 22:15) DBP 72 mmHg (DEC 22:15) General: Alert and oriented, No acute distress. Airway: Mallampati classification: II (soft palate, fauces, uvula visible). Distance: Adequate. Mouth: Within normal limits, Adequate opening. Neck: Trachea ( Prior Cervical Fusion ), No full range of motion. Respiratory: Respirations are non-labored. Cardiovascular: Normal rate, Regular rhythm. Neurologic: Alert, Oriented. Review / Management Laboratory Results Plan [place] [employer]esthesiologists#(ASA) physical status classification: Class III. Anesthetic Preoperative Plan Anesthesia: General. , Regional Fascia Iliaca (SIFI) block (more content not included)... Normal [facility] Blood Bank IDon 12-23-2023 Blood Bank ID BBID: [id number] Invalid Interpretation Code [facility] Comment on above: Performed By: #### 1 [id number], 22182043, 66285641, 8895498, [id number], 7409297 ####[facility] (DEFAULT)[address] [place] [address] CBC w/ Auto Diffon Erythrocyte distribution width (RBC) [Ratio] 14.6 % Normal 11.5-15.[address] [facility] Comment on above: Performed By: #### 1 1934165, 87140645, 96183045, 4801681, 3368091463, 1939237 ####[facility] (DEFAULT)[address] [place] [address] Hematocrit (Bld) [Volume fraction] 29.4 % Low 33.7-40.[address] [facility] Comment on above: Performed By: #### 1 9311764, 29054579, 12884514, 1715995, 9219984189, 5421088 ####[facility] (DEFAULT)[address] [place] [address] Hemoglobin (Bld) [Mass/Vol] 10.1 g/dL Low 11.3-15.[address] [facility] Comment on above: Performed By: #### 1 2764311, 64520463, 28148086, 7601626, 5730780509, 2865378 ####[facility] (DEFAULT)[address] [place] [address] Man Diff? Auto Invalid Interpretation Code [facility] Comment on above: Performed By: #### 1 5410062, 05435089, 96945561, 7601323, [id number], 4949915 ####[facility] (DEFAULT)[address] [place] [address] MCH (RBC) [Entitic mass] 32 pg Normal 24-[address] [facility] Comment on above: Performed By: #### 1 3627741, 12448861, 84678658, 3069935, 9365229770, 2513265 ####[facility] (DEFAULT)[address] [place] [address] MCHC (RBC) [Mass/Vol] 34 g/dL Normal 26-[address] [facility] Comment on above: Performed By: #### 1 4429323, 45513817, 67053205, 1383873, 8551558132, 7321038 ####[facility] (DEFAULT)[address] [place] [address] MCV (RBC) [Entitic vol] 94 fL Normal 81-[address] [facility] Comment on above: Performed By: #### 1 2158154, 23335878, 12539393, 7886305, 0807911511, 8029868 ####[facility] (DEFAULT)[address] [place] [address] Platelet 86 x10 Low 138-[address] [facility] Comment on above: Performed By: #### 1 7678737, 42876410, 36413644, 7449880, 7848658837, 5598108 ####[facility] (DEFAULT)[address] [place] [address] 37983 Platelet mean volume (Bld) [Entitic vol] 8.8 fL Normal 6.3-10.[address] [facility] Comment on above: Performed By: #### 1 9442217, 12059644, 22825205, 8746536, 4727494461, 5978978 ####[facility] (DEFAULT)[address] [place] [address] 48292 RBC 3.14 x10 Low 3.70-5.[address] [facility] Comment on above: Performed By: #### 1 4567489, 52604328, 64384050, 5094601, 6949661851, 5369607 ####[facility] (DEFAULT)[address] [place] [address]3796 WBC 3.8 x10 Normal 3.5-10.[address] [facility] Comment on above: Performed By: #### 1 7624237, 20385744, 98504797, 9208316, 4193322116, 1122231 ####[facility] (DEFAULT)[address] [place] [address] MAGR Intraoperative Recordon 12-23-2023 MAGR Intraoperative Record MAGR Intra-Op Record Summary Primary Physician: KEITH GABRIEL DO Finalized Date/Time: 12/23/23 11:24:45 Pt. Name: ASHLEE BANERJEE/Sex: 1950 FEMALE Med Rec #: [id number] Physician: KEITH GABRIEL DO Financial #: [id number] Pt. Type: D Room/Bed: / Admit/Disch: 12/23/23 05:40:58 - Institution: Case Times MAGR Entry 1 Patient In Room Time 12/23/23 07:54:00 Out Room Time 12/23/23 10:35:00 Anesthesia Start Time 12/23/23 07:54:00 Stop Time 12/23/23 10:41:00 Surgery Start Time 12/23/23 08:33:00 Stop Time 12/23/23 10:28:00 Last Modified By: Opal Orr RN 12/23/23 10:42:03 Case Attendance MAGR Entry 1 Entry 2 Entry 3 Case Attendee KEITH GABRIEL Bradley MD Kokinda, Diane RN Role Performed Surgeon - Primary Anesthesiologist of Clinical Data Abstractor Record Time In 12/23/23 08:03:00 12/23/23 07:54:00 12/23/23 07:54:00 Time Out 12/23/23 10:10:00 12/23/23 10:35:00 12/23/23 10:35:00 Procedure Arthroplasty Total Arthroplasty Total Arthroplasty Total Hip(Left) Hip(Left) Hip(Left) Last Modified By: Opal Orr RN, Diane RN Kokinda, Diane RN 12/23/23 10:41:40 12/23/23 10:41:40 12/23/23 10:41:40 Entry 4 Entry 5 Entry 6 Case Attendee Tasha Quintana SPECIAL PROCEDURES TECH De La Cruz SPECIAL PROCEDURES TECH, Tammy Wolff CST SPECIAL PROCEDURES TECH CSFA CSFA Role Performed Scrub Personnel Ditching Machine Engineer Ditching Machine Engineer Time In 12/23/23 07:54:00 12/23/23 07:54:00 12/23/23 07:54:00 Time Out 12/23/23 10:35:00 12/23/23 10:35:00 12/23/23 10:35:00 Procedure Arthroplasty Total Arthroplasty Total Arthroplasty Total Hip(Left) Hip(Left) Hip(Left) Last Modified By: Opal Orr RN, Diane RN Kokinda, Diane RN 12/23/23 10:41:40 12/23/23 10:41:40 12/23/23 10:42:20 General Comments: LAMBERTO BENITO-DEPBRANDON REP Surgical Procedures MAGR Pre-Care Text: A.20 Verifies operative procedure, surgical site, and laterality Im.150 Develops individualized plan of care Entry 1 Procedure Arthroplasty Total Hip Primary Procedure Yes Primary Surgeon KEITH GABRIEL DO Modifiers Left Surgeon Comment LEFT TOTAL HIP - NICKEL Start 12/23/23 08:33:00 FREE - DEPUY Stop 12/23/23 10:28:00 Anesthesia Type General Surgical Service Orthopedics Wound Class Clean Technique Details Closure Technique Primary Entire procedure No was performed via laparoscope or robotic assistance Last Modified By: Opal Orr RN 12/23/23 10:41:41 Post-Care Text: O.730 The patient's care is consistent with the individualized perioperative plan of care General Case Data MAGR Pre-Care Text: A.350.1 Classifies surgical wound Entry 1 Case Information OR MAGR OR 05 Case Level Level 5 Wound Class Clean Specialty Orthopedics ASA Class 3 Diagnosis Preop Diagnosis DJD Postop Same As Preop Yes Postop Diagnosis DJD Blunt or No Is the procedure No penetrating injury considered occured prior to Emergent/Urgent? the start of the procedure: Last Modified By: Opal Orr RN 12/23/23 08:37:57 Post-Care Text: O.760 Patient receives consistent and comparable care regardless of the setting Time Out MAGR Entry 1 Procedure(s) Arthroplasty Total Hip(Left) Time Out Checklist Verifications Team Introductions Yes Confirmed Identity, Yes Completed Procedure, Incision Site, and Consent(s) Presence of Yes Site Verification, Yes Necessary Site Marking, Site Procedural Marking Equipment, Devices, Alternative, and/or and Implants Site Marking Verified Exception in Accordance with Facility Policy Anesthesia Review Antibiotic Received Yes All Anesthesia Yes Within an Concerns Addressed Appropriate Time Interval Prior to Surgical Incision Surgeon Review Anticipated Blood Yes Expected Case Yes Loss Risk Addressed Duration Addressed Critical and Yes Non-Routine Steps to be Performed Addressed Nurse Review Equipment Yes Fire Risk Yes Checks/Concerns Assessment Addressed Completed and Interventions Performed Diagnostic and Yes Sterilization n/a Radiological Test Concerns Addressed Results Displayed are Appropriate and Labeled Other Concerns n/a Addressed Time Out KEITH GABRIEL DO, Time Out Time 12/23/23 08:32:00 Participants George Beverly MD, Opal Orr RN, Tasha Quintana SPECIAL PROCEDURES TECH, Joon SPECIAL PROCEDURES TECH, Deidre ARCHER CSFA Last Modified By: Opal Orr RN 12/23/23 08:38:11 Patient Positioning MAGR Pre-Care Text: A.280 Identifies baseline musculoskeletal status Im.40 Positions the patient Im.80 Applies safety devices Entry 1 Procedure Arthroplasty Total Body Position Lateral Hip(Left) Left Arm Position Extended on padded arm Right Arm Position Secured across chest board Left Leg Position Extended Right Leg Position Extended Feet Uncrossed? Yes Press Points Checked Yes Additional Heel gel placed under Positioning Device Safety Strap, Pillow, Information lateral non-operative Peg Board, Axillary Roll ankle O (more content not included)... [facility] PACU Record MAGR PACU Record Summary Primary Physician: KEITH GABRIEL DO Finalized Date/Time: 12/23/23 11:16:16 Pt. Name: ASHLEE BANERJEE Bhavana/Sex: 1950 FEMALE Med Rec #: [id number] Physician: KEITH GABRIEL DO Financial #: [id number] Pt. Type: D Room/Bed: / Admit/Disch: 12/23/23 05:40:58 - Institution: PACU Case Times MAGR Entry 1 In PACU I 12/23/23 10:36:00 Discharge from PACU 12/23/23 11:07:00 I Last Modified By: Kenneth Self RN 12/23/23 11:16:12 Finalized By: Kenneth Self RN Document Signatures Signed By: Kenneth Self RN 12/23/23 11:16 [facility] MAGR Preoperative Recordon 0 12-23-2023 MAGR Preoperative Record MAGR Pre-Op Record Summary Primary Physician: KEITH GABRIEL DO Finalized Date/Time: 12/23/23 11:16:35 Pt. Name: ASHLEE BANERJEE Bhavana/Sex: 1950 FEMALE [facility] Rec #: [id number] Physician: KEITH GABRIEL DO Financial #: [id number] Pt. Type: D Room/Bed: / Admit/Disch: 12/23/23 05:40:58 - Institution: Pre-Op Case Times MAGR Pre-Care Text: Patient will be optimally prepared for surgery. Patient is free from s/s of injury. Provide information to patient/family related to plan of care. Verify patient allergies. Confirm identity and verify consent before the operative or invasive procedure. Entry 1 Patient Arrival Time 12/23/23 05:54:00 Preop Departure 12/23/23 07:53:00 Last Modified By: Kenneth Self RN 12/23/23 11:16:32 Post-Care Text: Patient is prepared mentally and physically and is ready for surgery. The patient remains free from s/s of injury. Patient/family express understanding of plan of care and participate in decisions affecting his or her perioperrative plan of care. Allergies documented appropriately. Patient identifiers and consent correct. General Comments: Pt arrives to psw in a WC, Pt denies cp, sob, cough or flu like symptoms. Pt denies pacemaker/defibillator or sleep apnea. Finalized By: Kenneth Self RN Document Signatures Signed By: Kenneth Self RN 12/23/23 11:16 [facility] POCT Glucose Levelon 024 Glucose [Mass/Vol] 110 mg/dL Normal [facility] Comment on above: Result Comment: OPR_ ID=IN_LIST,TGC FLAG = False,Meter:[id number] Manager Aviation:[id number] Robert Storyika Performed By: #### 7 [id number], [id number] #### [facility] (DEFAULT) [address] [place] [address] Glucose [Mass/Vol] 93 mg/dL Normal [address] [place] [address] Comment on above: Result Comment: OPR_ ID=IN_LIST,TGC FLAG = False,Meter:[id number] Manager Aviation:[id number] Shannon Sidsel Performed By: #### 7 [id number], [id number] #### [facility] (DEFAULT) [address] [place] [address] XR Hip Complete Lefton 12-22 XR Hip Complete Left EXAM: XR Hip Complete Left HISTORY: S/P hip replacement. COMPARISON: 11/24/2023. TECHNIQUE: 2 views of the left hip. FINDINGS: Bones are osteopenic. Interval left hip arthroplasty is noted. Alignment appears preserved. No periprosthetic fracture is identified. Sacral nerve stimulator device is seen. Arteriovascular calcifications are noted. IMPRESSION: Interval left hip arthroplasty without signs of hardware complication identified. Final Dictated by: Andrei López DO Dictated DT/TM: 12/25/23 7:22 Signed (Electronic Signature): Andrei López DO 12/25/23 7:33 am Technologist: Aspen PHILLIP [facility] Coding Queryon 12-22-2023 Coding Query [id number] [facility] Coding Summaryon 12-21-2023 Coding Summary [employer] 64 JuehnyklIAt7jYy+PGhlYWQ +QE5RZJTtQ29dlVWrqL2nS7 NMTElOSywgQVBQTElOSyIgb cOoMC9gsHUvIRCf IC8+HJ2lADNmPbczoRXyp7V 4bTD9T62jmf2kVMvjyDF8ZZ AiFrKbdhjsu0uxpEf3VYawK mluOyBt KOXbiC79YFF4qH55Qz84tIT msRKaz8mqdDc3ZqAuJEWrEN M5cHclBJosc5LdJCSxQ56ho UEgz1U5 URNfmWoquYNoJsCrmVH0gW9 hZFswyjelo3iidvcmByp9oe 42gHQnr4L7uAU6Z9MlliW0Y GJvbGQg AcoogSHKtH5vdxwrc6monpm wFyJdJGQtCXx4LQw4JGFidG jzVbUoZO50VSG4ZZJjdpQqK 2FsLWFs oPbgVmJ4l6F6Ha1GT4MFIjf rQ0VQXNCXBDctqQB+PC90cj 73L0XtFdbmMyz5YNStKMA2y ZY5hW7k ECBgNHntn6Q7xAX9D7HirwR amm7lg7hcEDMfAHngZ39huF Tno2S2LDSazAC6JOGylWfpV iBzaG93 Oyc+JFKzaUkod0DxMmvik1j ho9oyySj2RmcpEOZgfnSahS qzOJQ8g1GbXu7oNMMblNU4l RM3fQ2x SjYhErC6BCijI013BrStoYK kZvurA88yN8YdrXO+PHRyPj k4FADfbLcmFP7sL5KlULRnx mctbGVm jElnEB1wGCKwftgmYGGnnP0 sCRKiN8v3CcXkHmS9RStcG4 GdCETrhckuUa97vM4cWeNuQ zV7DKoa A1ByewY8ZFPgpZSiOBdjPEW 2X98ek4F6CCYoEZCpGFV0lI O6gM1cnQfjgprqlDVmiVaak mVydGlj BNtsYRanG056EPSgjWnpXpN vZGluZyBEYXRlOiAgMDcvMz AvMjAyNDwvdGQ+NCFgCQL3e WxlPSAn aBMmMUeiBs0bcWfyrBipFH0 aOAPgtievQXMgoS1fCCGniH RczUyiYW8iLYUzmiapk401G iAxMHB0 OYYvfCCrI1CyqY2uYjYmZBW xWFDzE9UjzBOcBOzfC610CP wqWiZ5RELmvoNmA6FiYYBks WduOiB0 k5K4Ip2Yq7BfhjsmV6LqwUM lMdAeClkfHVq2G8ZrMscdoO I+IQ21XNSgBG09CQn5GLI7x WxlPSdi OTHxP5ZbbJ1tMxKhPSMeCLR kOyc+PHRhYmxlIHdpZHRoPS ueBZKwIdUtwIkeGL1qFy0uS GVyLWNv gAxsvTLqGcBnm7mrFFMjJTy tFZ1ibNpqU4PekZU6ZLUxu0 h0Ec25U38xN8VqhEN+PGNvb BF2hHP2 bF7iOjPkYvX7MNcmP976ZyI nnOCoEbquc6pqa9rawIg7Ni A8BQCgdsWbvYqlDJM0k3TnT g62C51w IHdpZHRoPSIxNSUiIHZhbGl end2soB5aLx1+CTCqvTA4vD Y0aF2mUmFvGqW2BGnxJ851L nRvcCIv Iyitw6ded0tgeQt9KxPqVBG wqgUjoFxrMMI4w4GtQl10H5 OedRoyw4OaBbp0st05xYMyr 1N0rYU3 B0SwXGGkfmuulNZpzHatVT0 xPNJrasvbIEYyvE6lVLPvM6 l4IfPeThR7TUqpK5BzebC1X GJvbGQg TWQkyGEQhG3zomzzk5takvi sFhAeKVCiRIy5XRd8NOGabU paWdCuZJW9ZmE7TOH1lPWzf N7lzLwu jauzaL7wImt+OZF0eHCafDF MGD9wRvizoXM+ONWmZWC0zA xbIZeiICLpcQ0wFHBwP3z0P iAwLjA1 LWeyY2ZqgzO9ZHEilARgPWI tiDGLwK9dlpion0kknafaGh BiZKFdSKo9NYf2DNKugQseL iBsZWZ0 NwL9XDG8dBVhdJ0azJiifdx hrF1cVis+JioxfBwbGOZ5GM n2V3HuXte8TITqpZnqWK8tu GFkZGlu Om3mgRuavLrkSK8hEFKeckk es772UnAxa2nzVYTsbCJuRP aoUSB9M95oq1D9PLNdFXKwU KE3tXL5 xR3wlAyamhuztZXicTubfqU imEzlOZybVEedA380QSWvaW iyLkNiWHi5K1TlRtl0GIGpe CqtRH2w xAPiCVxaSf4wfXkliLqkDF6 oTBIkezrfc804KuHtm6pkCT BgzRWiTOsxZBL5H80ux2U0G CMwMDAw JNH7qOY9gV7rnPipqsuzbVV mdDsgdmVydGljYWwtYWxpZ2 14OYSfkJwiLzHrsVf8Y7SnL ft4ZHYv sJmxKD1gyYBaVCkhUj4qxKy jlVekKQ5zJAQfcnfyw138Ev Rby0ifHNQkhBRqARszKGI5B 30ea1I7 EWHdDGJpLEH2wLG0oV0daOq nbjogbGVmdDsgdmVydGljYW lhBIwoW638TTIntGopAfYay GllbnQg RHxlIEs6D3DzBhenzQF+PC9 0GYOiXP93hDTjlQOyg1husC x4GaKxURNcKIX1wSwfPCpyz 3JkZXIt S84liGCdv5Q5STVaaXcftFC pNvYmxGC4zB0iSJnkfeoqh0 vtkcecSwgce5tqyu28gK93D 29sIHdp ZHRoPSIzMCUiIHZhbGlnbj0 gzC5pQa2+KUKkxXT3kWS9tQ 9bVBEdLxE0EWhyY594ZjXpi CIvPjxj o3rjr1mhqFv6FjM9YXUceiV bbTncPPD1n7PyCp83F35gZB dpZHRoPSIyMCUiIHZhbGlnb x9tmP7v Ii8+NIWcfTG2lUT5jW3kAaN lOlY9YJydM085DcFtdFNvIr pfN28uU6GnhGR+XKUnFur1R CBzdHls ZX8abHUlXSveCu6xGGJ7EmI mXqKrJExiV0YqBFJnejohrd pczDX0PRHqZWRkaR81Gc2cs DogMTBw nFODqS8tondka3ekmvhpDfR bLYLeNXy2OYi8QFQwdKqqSj ZpWMM4OnK2DPS9bSVjvD7cf Glnbjog iQ6cI5ZpZMKtkytyNq82jG1 dXhNxZaK1QDiiYnn+U1RSQV rOPJMAGKQPF4COZ1LsFEOHA BX7Q9Nx Ngf3GYUkoBnvCW7ezEAiASh pBq6geVhuuOidLW9jLSSojj ipKGStpB5dVZWciFVriRoqV Q5kRGWv zvidr525KlSaSKN2LQEmcGD yZ9BrsU6lDiHxMEHeOOHrB8 CjyDCuCZsyF185PMblMoU5J HZlcnRp Q3VlRGChhQvtTqA1n3M1Ca2 nYP7lZZ8qSHTuAC08JC71mN Mrq5I1xDH0H6TvULCxiyvvt mlnaHQ6 PAZrBDOyaC85pYFnBDdkCy8 qi3X5p887PUWnSUXviP05We 9fhYhoQODigQDIjU0ehmfvo 2xvcjog MkUzCFTuUPs8VOm9KTGtoEf xNuDjAGS2TdO7KBL6yCRruA 2wkHqwudmoiY8fIzw+NzQgW WVhcnM8 Z2ErPgg9FDHayHstQH1pdEB gQHftOz4rgLeqnWybGD3oGR TjgqwqPLRzxG7aYFAavJYqm BhvLV8i XEMmckqbw132WlGcNWI6GRR pdJQbW2CimG2kZfOfKTZnZZ UeH8IvqQBpRIyvY582UUjoN gM0GKLw ccAoL6NcXWRslCieJdX4k6G 1Jm4ZQD9GSGJ8N8BpWps3WN LwrFcpQV6lxVFjKXoyTs1xr WdodDog SC4hXLGakbwdMZLiiB7yYIV kdHFvsVebZA9mIXXdgyrzw5 16KoRnCEA6DOTvaXBhT8Sao A0nFqWm SQIdBYOvU0UcuTHlUVlyY93 8YUdlLeY0DVEovqLoX7JsVK WpyDryEsH9l6W9Rd5AODxbz GQ+PC90 if00X6MiQyfgFjm4ZUXwONZ 1dOY7cY6kVSByWDajj3N8jH J8D2RtdyKmmi0my5zcUWOmT HbpN21s sSXdm3A0AQTecBV1MMQrmUe gHsPkiX68Nee+PGNvbGdyb3 ZfJrmrz3htd8mseVd9HoWnG SIgdmFs sEyzOHG7o1ZcBr99D28oULj pZHRoPSIzMCUiIHZhbGlnbj 9xtG2fJp8+ODKesFM9iVO7x M1wCmMq WeB4TLuvU372EbGqiATzZvw ma5pwj0pmnDs8CqUcLJWsmq OmnKoaPGQ9e5GwWb40W8Dzy Krti9Uk Sfj3qf29fXGsm3K9oBL7S6L iCGQrfzpdrZEhtIfaXT8tNC QagtbqVVHejZ3vBGBwB1z5R iAwLjA1 WWjtE4QhvwL3GZLqfOXySFU stBMLuO6ziihpe9pjlhotUt UdGDYkYGf3DHb8CWEhpRecY iBsZWZ0 VwD2YDK0dTFxhR1xsQktwwy etE6kLwj+YUs3m7qpeCHcOX 5urHS2DW30DG45mAPtr2L0z XK9R8Xr CTGkkitmyjnyvRS8FNRlBUY deB49Ct6yeSnxRm3nHRLwAK F5KNZzoUPkZ5NhlY8eYdGzI DAwMDAw Z1IfgZYhVTbyE865BBxmIrV 3TVZmjbEtM6KlVSTakIzwNw K3e1V0Jq0WYD09PB10FP49e IDhg0I6 xKW2U2LhRGRpjgueevmnjCE 3PPGfUTIdzI33Yj1wuOcnNw 0hFIGmPKB3TLWvrHImD5Okj V6lYlMn UCLoDFFpB2BivLOwPOamE30 4MUksBrA6GWHyamEnR1UxRP EtcZsqMeU9h1H0On5AIk80P O17EL56 yXFmr2B0iOS2W3EwXWAfxsf iecrkmEA5UWVsWUKtnN57Ag 2qlErjHn6gDTApEUQ8CKWuk GEvP0Vc mN9rXgOiFSUuVOAzN5QajQL pHKcrN554BKfnVrG4UMHttk CdA7OlRNUagEpkHxN3t3B3Y n6KZIhi slh8H5BjVmmxlGB+JR66APA aXS56qWHyvWZwu9qsoOm2To GtCSCwULC6uNcoQFbzb8RpI GZzK11i bGF (more content not included)... Normal [facility] AFP TUMOR MARKERon AFP Tumor Marker <2.2 Normal <8.1 [facility] Comment on above: Result Comment: This test was performed on the [employer] IM Immunoassay platform by Siem[employer] which is a two-site sandwich chemiluminescent immunoassay. It is important to note that assays using different manufacturers and/or methods may not be comparable. Performed By: #### A FPTMR #### [facility] (DEFAULT) [address] [place] [address] CA 19-9on 11-29-2023 Cancer Ag 19-9 Qn 26.24 [arb'U]/mL NINF - 37.00 U/mL [facility] Comment on above: This test was perfor med on the Siemens Atell[employer] IM Immunoassay platform which is a 2-step sandwich chemiluminescent immunoassay. It is important to note that assays using different manufacturers and/or methods may not be comparable. Interpretation and review of laboratory results Normal [facility] CA 19-9 26.24 U/mL Normal <=37.00 [facility] Comment on above: Result Comment: This test was performed on the Siemens Atellica IM Immunoassay platform which is a 2-step sandwich chemiluminescent immunoassay. It is important to note that assays using different manufacturers and/or methods may not be comparable. Performed By: #### C A199 #### [facility] (DEFAULT) [address] [place] [address] CBC,PLATELETSon 11-29-2023 Erythrocyte distribution width (RBC) [Ratio] 13.6 % 10.8 - 14.9 % [facility] Hematocrit (Bld) [Volume fraction] 34.2 % Low 34.9 - 44.3 % [facility] Hemoglobin (Bld) [Mass/Vol] 10.8 g/dL Low 11.4 - 15.2 g/dL [facility] Interpretation and review of laboratory results Abnormal [facility] MCH (RBC) [Entitic mass] 29.7 pg 25.9 - 33.9 pg [facility] MCHC (RBC) [Mass/Vol] 31.6 g/dL 31.4 - 35.9 g/dL [facility] MCV (RBC) [Entitic vol] 94.0 fL 79.6 - 97.7 fL [facility] Platelet mean volume (Bld) [Entitic vol] 12.0 fL 8.5 - 12.2 fL [facility] Comment on above: This is an appended report. These results have been appended to a previously preliminary verified report. Platelets (Bld) [#/Vol] 91 10*3/uL Low 150 - 393 K/uL [facility] Comment on above: This is an appended report. These results have been appended to a previously preliminary verified report. RBC (Bld) [#/Vol] 3.64 10*6/uL Low [facility] WBC (Bld) [#/Vol] 4.06 10*3/uL 3.99 - 11. 19 K/uL [facility] Hematocrit (Bld) [Volume fraction] 34.2 % Low 34.9-44.3 [facility] Comment on above: Performed By: #### [place] [facility] [place] #### [facility] (DEFAULT) [address] [address] Hemoglobin (Bld) [Mass/Vol] 10.8 g/dL Low 11.4-15.2 [facility] Comment on above: Performed By: #### [place] [facility] [place] #### [facility] (DEFAULT) [address] [address] MCV (RBC) [Entitic vol] 94.0 fL Normal 79.6-97.7 [facility] Comment on above: Performed By: #### H EMOGC #### [facility] (DEFAULT) [address] [address] Mean Cell Hgb 29.7 pg Normal 25.9-33.9 [facility] Comment on above: Performed By: #### H EMOGC #### [facility] (DEFAULT) [address] [address] Mean Cell Hgb Conc 31.6 g/dL Normal 31.4-35.9 [facility] Comment on above: Performed By: #### H EMOGC #### [facility] (DEFAULT) [address] [address] Platelet mean volume (Bld) [Entitic vol] 12.0 fL Normal 8.5-12.2 [facility] Comment on above: Result Comment: This is an appended report. These results have been appended to a previously preliminary verified report. Performed By: #### H EMOGC #### [facility] (DEFAULT) [address] [address] Platelets (Bld) [#/Vol] 91 10*3/uL Low 150-393 [facility] Comment on above: Result Comment: This is an appended report. These results have been appended to a previously preliminary verified report. Performed By: #### H EMOGC #### [facility] (DEFAULT) [address] [address] RBC (Bld) [#/Vol] 3.64 10*6/uL Low 3.91-5.04 [facility] Comment on above: Performed By: #### H EMOGC #### [facility] (DEFAULT) [address] [address] RBC Distribution 13.6 % Normal 10.8-14.9 [facility] Comment on above: Performed By: #### H EMOGC #### [facility] (DEFAULT) [address] [address] WBC (Bld) [#/Vol] 4.06 10*3/uL Normal 3.99-11.19 [facility] Comment on above: Performed By: #### H [facility] [place] #### [facility] (DEFAULT) [address] [place] [address] CHEM 6 (LYTES, BUN CREA)on 0 11-29-2023 Anion gap [Moles/Vol] 13 mmol/L 7 - 17 mmol/L [facility] Chloride [Moles/Vol] 107 mmol/L 98 - 108 mmol/L [facility] CO2 [Moles/Vol] 25 mmol/L 21 - 31 mmol/L [facility] Creatinine [Mass/Vol] 0.99 mg/dL 0.50 - 1.20 mg/dL [facility] eGFR, CKD-EPI, Female 60 - PINF [facility] Comment on above: Reported eGFR is bas ed on the CKD-EPI 2020 equation using creatinine, age, and sex. Potassium [Moles/Vol] 4.1 mmol/L 3.5 - 5.0 mmol/L [facility] Sodium [Moles/Vol] 141 mmol/L 135 - 145 mmol/L [facility] Urea nitrogen [Mass/Vol] 35 mg/dL High 7 - 25 mg/dL [facility] Urea nitrogen/Creatinine [Mass ratio] 35 mg/mg [facility] Anion gap [Moles/Vol] 13 mmol/L Normal 7-17 [facility] Comment on above: Performed By: #### VARGAS CABRAL6 #### [facility] (DEFAULT) [address] [place] [address] Chloride [Moles/Vol] 107 mmol/L Normal 98-108 [facility] Comment on above: Performed By: #### H VARGAS THOMPSON6 #### [facility] (DEFAULT) [address] [place] [address] CO2 [Moles/Vol] 25 mmol/L Normal 21-31 [facility] Comment on above: Performed By: #### H FP, CHM6 #### [facility] (DEFAULT) [address] [place] [address] Creatinine [Mass/Vol] 0.99 mg/dL Normal 0.50-1.20 [facility] Comment on above: Performed By: #### H FP, CHM6 #### [facility] (DEFAULT) [address] [place] [address] GFR/1.73 sq M.predicted among non-blacks MDRD (S/P/Bld) [Vol rate/Area] 60 mL/min/{1.73_m2} Normal >=60 [facility] Comment on above: Result Comment: Repo rted eGFR is based on the CKD-EPI 2020 equation using creatinine, age, and sex. Performed By: #### H DONNA, CHM6 #### [facility] (DEFAULT) [address] [place] [address] Potassium [Moles/Vol] 4.1 mmol/L Normal 3.5-5.0 [facility] Comment on above: Performed By: #### H DONNA, CHM6 #### [facility] (DEFAULT) [address] [place] [address] Sodium [Moles/Vol] 141 mmol/L Normal 135-145 [facility] Comment on above: Performed By: #### H DONNA, CHM6 #### [facility] (DEFAULT) [address] [place] [address] Urea nitrogen [Mass/Vol] 35 mg/dL High 7-25 [facility] Comment on above: Performed By: #### H FP, CHM6 #### [facility] (DEFAULT) [address] [place] [address] Urea nitrogen/Creatinine [Mass ratio] 35 mg/mg Normal [facility] Comment on above: Performed By: #### H FP, CHM6 #### [facility] (DEFAULT) [address] [place] [address] HEPATIC FUNCTION PANELon Albumin [Mass/Vol] 4.0 g/dL 3.5 - 5.0 g/dL [facility] ALP [Catalytic activity/Vol] 118 U/L 32 - 126 U/L [facility] ALT [Catalytic activity/Vol] 34 U/L 9 - 48 U/L [facility] AST [Catalytic activity/Vol] 39 U/L 10 - 39 U/L [facility] Bilirubin [Mass/Vol] 0.5 mg/dL NINF - 1.5 mg/dL [facility] Bilirubin.direct [Mass/Vol] 0.2 mg/dL NINF - 0.3 mg/dL [facility] Protein [Mass/Vol] 6.3 g/dL Low 6.4 - 8.3 g/dL [facility] Albumin [Mass/Vol] 4.0 g/dL Normal 3.5-5.0 [facility] Comment on above: Performed By: #### Mirta THOMPSON, CHM6 #### [facility] (DEFAULT) [address] [address] ALP [Catalytic activity/Vol] 118 U/L Normal 32-126 [facility] Comment on above: Performed By: #### Mirta THOMPSON, CHM6 #### [facility] (DEFAULT) [address] [address] ALT [Catalytic activity/Vol] 34 U/L Normal 9-48 [facility] Comment on above: Performed By: #### Mirta THOMPSON, CHM6 #### [facility] (DEFAULT) [address] [address] AST [Catalytic activity/Vol] 39 U/L Normal 10-39 [facility] Comment on above: Performed By: #### Mirta THOMPSON, CHM6 #### [facility] (DEFAULT) [address] [address] Bilirubin [Mass/Vol] 0.5 mg/dL Normal <1.5 [facility] Comment on above: Performed By: #### Mirta THOMPSON, CHM6 #### [facility] (DEFAULT) [address] [place] [address] Bilirubin.indirect [Mass/Vol] 0.2 mg/dL Normal <0.3 [facility] Comment on above: Performed By: #### H TRENT THOMPSONM6 #### [facility] (DEFAULT) [address] [place] [address] Protein [Mass/Vol] 6.3 g/dL Low 6.4-8.3 [facility] Comment on above: Performed By: #### H TRENT THOMPSONM6 #### [facility] (DEFAULT) [address] [place] [address] No Panel Informationon 11-28 Interpretation and review of laboratory results Abnormal [facility] PROTIME-INRon 11-29-2023 INR Coag (Bld) [Relative time] 1.3 {INR} High 0.9 - 1.1 [facility] Interpretation and review of laboratory results Abnormal [facility] PT Coag (PPP) [Time] 15.7 s High [facility] INR Coag (PPP) [Relative time] 1.3 {INR} High 0.9-1.1 [facility] Comment on above: Performed By: #### P TI #### [facility] (DEFAULT) [address] [place] [address] PT Coag (PPP) [Time] 15.7 s High 11.9-14.2 [facility] Comment on above: Performed By: #### P TI #### [facility] (DEFAULT) [address] [place] [address] C Urineon 11-26-2023 C Urine Urine Culture ordere d as a result of parameters set on specific urine dip and urine microsopic results. >100,000 cfu/ml Escherichia coli and 30,000 cfu/ml Klebsiella oxytoca ORGANISM EC Kleoxy -- SUSCEPTIBILITY - ORGANISM ID: 1 ANTIBIOTIC INTERPRETATION TERESA STATUS ORGANISM ECEC Amik S <=16 Verified Amox/Cla S <=8/4 Verified Amp S <=8 Verified Amp/Sul S <=8/4 Verified Azt S <=4 Verified Cefaz S <=2 Verified Cefep S <=8 Verified Cefo S <=2 Verified Ceftaz S <=1 Verified Ceftri S <=1 Verified Cefur S <=4 Verified Cipro S <=1 Verified Ertap S <=0.5 Verified Gent S <=2 Verified Imi S <=1 Verified Levo S <=2 Verified Nitro S <=32 Verified Pip/Tej S <=16 Verified Tetra S <=4 Verified Tobra S <=4 Verified Tri/Sulf S <=2/38 Verified -- SUSCEPTIBILITY - ORGANISM ID: 2 ANTIBIOTIC INTERPRETATION TERESA STATUS ORGANISM KleoxyKleoxy Amik S <=16 Verified Amox/Cla S <=8/4 Verified Amp R >16 Verified Amp/Sul S <=8/4 Verified Azt S <=4 Verified Cefaz S 4 Verified Cefep S <=8 Verified Cefo S <=2 Verified Ceftaz S <=1 Verified Ceftri S <=1 Verified Cefur S <=4 Verified Cipro S <=1 Verified Ertap S <=0.5 Verified Gent S <=2 Verified Imi S <=1 Verified Levo S <=2 Verified Nitro S <=32 Verified Pip/Tej S <=16 Verified Tetra S <=4 Verified Tobra S <=4 Verified Tri/Sulf S <=2/38 Verified [facility] Comment on above: Performed By: #### 7 [id number], [id number] #### [facility] (DEFAULT) [address] [place] [address] Provider Orderson 11-26-2023 Provider Orders [id number] TGTIFF [facility] .Auto Diff 1on 11-24-2023 Auto [facility] % 8 % Normal 1-[address] [facility] Comment on above: Performed By: #### 7 [id number], [id number] #### [facility] (DEFAULT) [address] [place] [address] Baso Abs# 0.0 x10 Normal 0.0-0.[address] [facility] Comment on above: Performed By: #### 7 [id number], [id number] #### [facility] (DEFAULT) [address] [place] [address] Basophils/100 WBC (Bld) 0.8 % Normal 0.2-2.[address] [facility] Comment on above: Performed By: #### 7 [id number], [id number] #### [facility] (DEFAULT) [address] [place] [address] Eos Abs# 0.2 x10 Normal 0.0-0.[address] [facility] Comment on above: Performed By: #### 7 [id number], [id number] #### [facility] (DEFAULT) [address] [place] [address] Eosinophils/100 WBC (Bld) 4.3 % High 0.9-4.[address] [facility] Comment on above: Performed By: #### 7 [id number], [id number] #### [facility] (DEFAULT) [address] [place] [address] Lymph Abs# 0.7 x10 Low 1.3-2.[address] [facility] Comment on above: Performed By: #### 7 [id number], [id number] #### [facility] (DEFAULT) [address] [place] [address] Lymphocytes/100 WBC (Bld) 19 % Normal 14-[address] [facility] Comment on above: Performed By: #### 7 [id number], [id number] #### [facility] (DEFAULT) [address] [place] [address] [facility] Abs# 0.3 x10 Normal 0.0-0.[address] [facility] Comment on above: Performed By: #### 7 [id number], [id number] #### [facility] (DEFAULT) [address] [place] [address] Neut Abs# 2.4 x10 Normal 1.5-9.[address] [facility] Comment on above: Performed By: #### 7 [id number], [id number] #### [facility] (DEFAULT) [address] [place] [address] Neutrophils/100 WBC (Bld) 68 % Normal 44-[address] [facility] Comment on above: Performed By: #### 7 [id number], [id number] #### [facility] (DEFAULT) [address] [place] [address] BMP Standardon 11-24-2023 eGFR Non AA 41 mL/min/1.73m2 Invalid Interpretation Code [facility] Comment on above: Performed By: #### 7 [id number], [id number] #### [facility] (DEFAULT) [address] [place] [address] 74185 eGFR AA 49 mL/min/1.73m2 Invalid Interpretation Code [facility] Comment on above: Performed By: #### 7 [id number], [id number] #### [facility] (DEFAULT) [address] [place] [address] 24511 Calcium [Mass/Vol] 9.0 mg/dL Normal 8.9-10.3 [facility] Comment on above: Performed By: #### 7 [id number], [id number] #### [facility] (DEFAULT) [address] [place] [address] 15982 Chloride [Moles/Vol] 108 mmol/L Normal 101-[address] [facility] Comment on above: Performed By: #### 7 [id number], [id number] #### [facility] (DEFAULT) [address] [place] [address] 66664 CO2 [Moles/Vol] 24 mmol/L Normal 21-[address] [facility] Comment on above: Performed By: #### 7 [id number], [id number] #### [facility] (DEFAULT) [address] [place] [address] 93777 Creatinine [Mass/Vol] 1.28 mg/dL Normal 0.60-1.[address] [facility] Comment on above: Performed By: #### 7 [id number], [id number] #### [facility] (DEFAULT) [address] [place] [address] 96353 Glucose [Mass/Vol] 97.0 mg/dL Normal 74.0-118.0 [facility] Comment on above: Performed By: #### 7 [id number], [id number] #### [facility] (DEFAULT) [address] [place] [address] 50324 Potassium [Moles/Vol] 4.1 mmol/L Normal 3.6-5.[address] [facility] Comment on above: Performed By: #### 7 [id number], [id number] #### [facility] (DEFAULT) [address] [place] [address] 27471 Sodium [Moles/Vol] 138.0 mmol/L Normal 136.0-144.0 [facility] Comment on above: Performed By: #### 7 [id number], [id number] #### [facility] (DEFAULT) [address] [place] [address] 35861 Urea nitrogen [Mass/Vol] 43 mg/dL High 8-[address] [facility] Comment on above: Performed By: #### 7 [id number], [id number] #### [facility] (DEFAULT) [address] [place] [address] 04221 Anion gap [Moles/Vol] 10.1 mmol/L Normal 5.0-19.[address] [facility] Comment on above: Performed By: #### 7 [id number], [id number] #### [facility] (DEFAULT) [address] [place] [address] 44246 Osmolality 286 mOsm/L Invalid Interpretation Code [facility] Comment on above: Performed By: #### 7 [id number], [id number] #### [facility] (DEFAULT) [address] [place] [address] 60630 Urea nitrogen/Creatinine [Mass ratio] 33.5 mg/mg High 4.6-16.[address] [facility] Comment on above: Performed By: #### 7 [id number], [id number] #### [facility] (DEFAULT) [address] [place] [address] 70838 CBC w/ Auto Diffon 4 Erythrocyte distribution width (RBC) [Ratio] 14.7 % Normal 11.5-15.[address] [facility] Comment on above: Performed By: #### 7 [id number], [id number] #### [facility] (DEFAULT) [address] [place] [address] 22856 Hematocrit (Bld) [Volume fraction] 33.3 % Low 33.7-40.[address] [facility] Comment on above: Performed By: #### 7 [id number], [id number] #### [facility] (DEFAULT) [address] [place] [address] 61663 Hemoglobin (Bld) [Mass/Vol] 11.1 g/dL Low 11.3-15.[address] [facility] Comment on above: Performed By: #### 7 [id number], [id number] #### [facility] (DEFAULT) [address] [place] [address] Man Diff? Auto Invalid Interpretation Code [facility] Comment on above: Performed By: #### 7 [id number], [id number] #### [facility] (DEFAULT) [address] [place] [address] 39706 MCH (RBC) [Entitic mass] 31 pg Normal 24-[address] [facility] Comment on above: Performed By: #### 7 [id number], [id number] #### [facility] (DEFAULT) [address] [place] [address] 23664 MCHC (RBC) [Mass/Vol] 33 g/dL Normal 26-[address] [facility] Comment on above: Performed By: #### 7 [id number], [id number] #### [facility] (DEFAULT) [address] [place] [address] 51479 MCV (RBC) [Entitic vol] 92 fL Normal 81-[address] [facility] [facility] Comment on above: Performed By: #### 7 [id number], [id number] #### [facility] (DEFAULT) [address] [place] [address] 60035 Platelet 101 x10 Low 138-[address] [facility] Comment on above: Performed By: #### 7 [id number], [id number] #### [facility] (DEFAULT) [address] [place] [address] 14284 Platelet mean volume (Bld) [Entitic vol] 9.4 fL Normal 6.3-10.[address] [facility] Comment on above: Performed By: #### 7 [id number], [id number] #### [facility] (DEFAULT) [address] [place] [address] 40545 RBC 3.62 x10 Low 3.70-5.[address] [facility] Comment on above: Performed By: #### 7 [id number], [id number] #### [facility] (DEFAULT) [address] [place] [address] 56195 WBC 3.6 x10 Normal 3.5-10.[address] [facility] Comment on above: Performed By: #### 7 [id number], [id number] #### [facility] (DEFAULT) [address] [place] [address] 97332 HgbA1c Standardon 11-24-2023 .Hb 11.5 Invalid Interpretation Code [facility] Comment on above: Performed By: #### 1 [id number] ####[facility] (DEFAULT)[address] [place] [address] .Hgb A1c 0.53 g/dL Invalid Interpretation Code [facility] Comment on above: Performed By: #### 1 [id number] ####[facility] (DEFAULT)[address] [place] [address] Glucose [Mass/Vol] 134 mg/dL Invalid Interpretation Code [facility] Comment on above: Performed By: #### 1 [id number] ####[facility] (DEFAULT)[address] [place] [address] 75481 HbA1c (Bld) [Mass fraction] 6.3 % High 4.6-6.[address] [facility] Comment on above: Performed By: #### 1 [id number] ####[facility] (DEFAULT)[address] [place] [address]5945 UA Cddbt8hi 11-24-2023 UA Amorph. 1+ Normal [facility] Comment on above: Order Comment: Urina lysis Microscopic order added on by [employer] Expert Rules system. Performed By: #### 7 [id number], [id number] #### [facility] (DEFAULT) [address] [place] [address] 16585 UA Bacteria 1+ Normal [facility] Comment on above: Order Comment: Urina lysis Microscopic order added on by [employer] Rules system. Performed By: #### 7 [id number], [id number] #### [facility] (DEFAULT) [address] [place] [address] UA Hyal Cast 5-10 [facility] Comment on above: Order Comment: Urina lysis Microscopic order added on by Discern Expert Rules system. Performed By: #### 7 [id number], [id number] #### [facility] (DEFAULT) [address] [place] [address] UA Mucous 2+ [facility] Comment on above: Order Comment: Urina lysis Microscopic order added on by Discern Expert Rules system. Performed By: #### 7 [id number], [id number] #### [facility] (DEFAULT) [address] [place] [address] UA RBC 0-2 [facility] Comment on above: Order Comment: Urina lysis Microscopic order added on by Discern Expert Rules system. Performed By: #### 7 [id number], [id number] #### [facility] (DEFAULT) [address] [place] [address] UA Squam Epi Few [facility] Comment on above: Order Comment: Urina lysis Microscopic order added on by Discern Expert Rules system. Performed By: #### 7 [id number], [id number] #### [facility] (DEFAULT) [address] [place] [address] UA WBC 3-5 [facility] Comment on above: Order Comment: Urina lysis Microscopic order added on by Discern Expert Rules system. Performed By: #### 7 [id number], [id number] #### [facility] (DEFAULT) [address] [place] [address] UA w Culture if Ind Standard on 11-24-2023 Breakpoint UA [facility] Comment on above: Performed By: #### 7 [id number], [id number] #### [facility] (DEFAULT) [address] [place] [address] Color (U) Yellow [facility] Comment on above: Performed By: #### 7 [id number], [id number] #### [facility] (DEFAULT) [address] [place] [address] Culture? Indicated Invalid Interpretation Code [facility] Comment on above: Result Comment: Resu lt created by rule GL_MAGR_ADD_UA_CULT Result created by rule GL_MAGR_ADD_UA_CULT Result created by rule GL_MAGR_ADD_UA_CULT Performed By: #### 7 [id number], [id number] #### [facility] (DEFAULT) [address] [place] [address] 16488 Glucose (U) [Mass/Vol] Negative Normal [facility] Comment on above: Performed By: #### 7 [id number], [id number] #### [facility] (DEFAULT) [address] [place] [address] 01718 Ketones Ql (U) TRACE Normal [facility] Comment on above: Performed By: #### 7 [id number], [id number] #### [facility] (DEFAULT) [address] [place] [address] 72888 Micro? Indicated Invalid Interpretation Code [facility] Comment on above: Result Comment: Resu lt created by rule GL_MAGR_ADD_UA_MICRO Performed By: #### 7 [id number], [id number] #### [facility] (DEFAULT) [address] [place] [address] 41403 UA Bilirubin Negative Normal [facility] Comment on above: Performed By: #### 7 [id number], [id number] #### [facility] (DEFAULT) [address] [place] [address] 07275 UA Blood Negative Normal NEGATIVE [facility] Comment on above: Performed By: #### 7 [id number], [id number] #### [facility] (DEFAULT) [address] [place] [address] 18437 UA Clarity CLEAR Normal CLEAR [facility] Comment on above: Performed By: #### 7 [id number], [id number] #### [facility] (DEFAULT) [address] [place] [address] 38340 UA Leuk Est TRACE Abnormal NEGATIVE [facility] Comment on above: Performed By: #### 7 [id number], [id number] #### [facility] (DEFAULT) [address] [place] [address] 71212 UA Nitrite Negative Normal NEGATIVE [facility] Comment on above: Performed By: #### 7 [id number], [id number] #### [facility] (DEFAULT) [address] [place] [address] 18878 UA pH 5.5 Normal 5-[address] [facility] Comment on above: Performed By: #### 7 [id number], [id number] #### [facility] (DEFAULT) [address] [place] [address] 01605 UA Protein Negative Normal NEGATIVE [facility] Comment on above: Performed By: #### 7 [id number], [id number] #### [facility] (DEFAULT) [address] [place] [address] 40365 UA Spec Grav >=1.030 Normal 1.001-1.[address] [facility] Comment on above: Performed By: #### 7 [id number], [id number] #### [facility] (DEFAULT) [address] [place] [address] 01459 UA Urobilinogen 0.2 mg/dL Normal 0.2-1.[address] [facility] Comment on above: Performed By: #### 7 [id number], [id number] #### [facility] (DEFAULT) [address] [place] [address] 62107 Urine Source Clean Catch Normal [facility] Comment on above: Performed By: #### 7 [id number], [id number] #### [facility] (DEFAULT) [address] [place] [address] 54090 XR Chest 1 View Frontalon XR Chest 1 View Frontal EXAM: XR Chest 1 View Frontal INDICATION: pre op-former smoker. COMPARISON: None. TECHNIQUE: Single frontal view of the chest FINDINGS: Normal cardiomediastinal contours. No acute infiltrative process. No pleural effusion or pneumothorax. No acute osseous abnormality. IMPRESSION: No acute cardiopulmonary process. Final Dictated by: Belgica Cordoba MD Dictated DT/TM: 11/27/23 8:58 Signed (Electronic Signature): Belgica Cordoba MD 11/27/23 8:59 am Technologist: [facility] XR Hip Complete Lefton 11-23 XR Hip Complete Left EXAM: XR Hip Complete Left INDICATION: Left total hip-pre op. COMPARISON: None. TECHNIQUE: : Frontal and frog-leg lateral views of the left hip. FINDINGS: No acute fracture or dislocation. Severe left hip joint space narrowing with periarticular osteophyte and subchondral cyst formation. Severe vascular calcifications. Unremarkable soft tissues. Left sacral stimulator device noted. IMPRESSION: Severe left hip osteoarthrosis. Final Dictated by: Belgica Cordoba MD Dictated DT/TM: 11/27/23 8:59 Signed (Electronic Signature): Belgica Cordoba MD 11/27/23 9:01 am Technologist: [facility] Cult,Urineon 10-27-2023 Cult,Urine Specimen Description .VOIDED URINE Special Requests Site: Urine Culture NO SIGNIFICANT GROWTH Report Status FINAL 10/27/2023 [facility] Comment on above: Performed By: #### U #### [facility] [address] [place] [address] Incident Engineer: Beto Farah MD [facility] [address] [address] Incident Engineer: Wilver Calvillo MD Gastroenterology Office/Clin ic Noteon 10-19-2023 Gastroenterology Office/Clinic Note Chief Complaint f/u History of Present Illness Here for follow up Last seen 03/25/2023 Here for follow up Last seen 2022 Here for follow up Last seen 03/2022 Here for follow up Last seen 10/01/2021 Here for follow up Last seen 07/08/2021 Here for follow up Last seen 04/08/2021 Here for follow up Last seen 11/07/2020 Here for follow up Seeing us for PBC Has been on Ocaliva as well as Mihai Last seen 08/05/2020 Ashlee is a 69 year old female here [...] her ALP level has increased and Dr Gerco placed her on Ocaliva 10 mg in [...] -Fibrosis -Mild fatty liver -Gallstones 06/2020 T bowen 0.1 0.4 0.5 0.3 Alb 3.7 3.5 [...] - Diverticulosis - no colonic polyps Colonoscopy 2015 - Hemorrhoids - Diverticulosis - 1.7 cm sessile polyp - removed - villous adenoma Colonoscopy 2002 - normal colon - normal ileum [1] Interval History 11/08/2020 Blood results from 08/15/2020 ANDREE 1:640 HCV AB - Anti LKM - INR 1.00 WBC 7.9 Hgb 12 plT 154 T bowen 0.3 TP 6.8 NA 143 BUN 25 Cr 1.17 ALT 83 AST 50 ALP 105 ALB 3.3 AFP 3.2 A1AT 143 Ceruloplasmin 25.6 Hep A AB - AMA + ( 119) HB sAB - HCV - [2] US with elastography performed at OSH which is not here for review Most recent LFT 10/15/2020 ALK 180 AST 31 ALT 41 Alb 3.5 total Bowen 0.5 She has no complaints Her concern [...] cold forceps bx f/u bx Repeat in (more content not included)... Normal [facility] MRI Abdomen w/ + w/o Contras ton 09-23-2023 MRI Abdomen w/ + w/o Contrast HISTORY: Cirrhosis with hepatocellular carcinoma screening. TECHNIQUE: Multiplanar, multisequences were obtained pre and postcontrast. COMPARISON: 03/16/2023. FINDINGS: There is fatty infiltration of the liver with mild hypertrophy left lobe of liver and lobulation suspicious for changes of cirrhosis. No hepatic masses or biliary ductal dilatation is seen. Common bile duct measures 5 mm. There is cholelithiasis with a contracted gallbladder. Spleen is enlarged measuring 14 cm longitudinally. There is portal hypertension with recanalization of periumbilical vein. Pancreas and pancreatic ducts are normal. There are mildly enlarged reactive china-hepatal and peripancreatic lymph nodes. After IV contrast administration no masses seen. Hepatic and portal veins are patent. There are renal cortical cysts with a large exophytic cyst in the right kidney. No ascites is seen. The bowel, bones and soft tissues unremarkable. IMPRESSION: 1. Cirrhotic appearing liver. No evidence for masses or acute process. 2. Cholelithiasis. No biliary ductal dilatation. 3. Splenomegaly. Mild portal hypertension. 4. Reactive periportal and peripancreatic lymph nodes. 5. Renal cortical cysts on the right. Final Dictated by: Cooper Gramajo MD Dictated DT/TM: 09/23/2023 4:26 pm Signed by: Cooper Gramajo MD Signed (Electronic Signature): 09/23/2023 4:49 pm Transcribed DT/TM: 09/23/2023 4:47 (If Report Is Signed, Electronically Signed in Other Vendor System) Normal [facility] Comment on above: Order Comment: medtronic bladder stim, please have pt bring card .eGFRon 09-22-2023 Estimated GFR 48 mL/min/1.73m? Low >=60 [facility] Comment on above: Order Comment: Order added by Discern Rule. Result Comment: [facility] have implemented the eGFR calculation [...] 1 Age = years Performed By: #### E GFR #### [address] [address] POC Creatinine Von POC Crea iStat Venous 1.2 mg/dL Normal 0.6-1.3 [facility] Comment on above: Performed By: #### C [id number] #### [address] [address] XR C-SPINE FLEX/EXT ONLY 2 V IEWSon 09-17-2023 XR C-SPINE FLEX/EXT ONLY 2 VIEWS EXAMINATION: XR C-SPINE FLEX/EXT ONLY 2 VIEWS 09/16/2023 10:58 AM CLINICAL HISTORY: Laminoplasty ASSOCIATED DIAGNOSIS: Cervical spondylosis with myelopathy ORDERING PROVIDER: GERI VERGARA TECHNOLOGISTS NOTE: COMPARISON: XR C-SPINE FLEX/EXT ONLY 2 VIEWS 06/17/2023, 10:[address] C-SPINE W/O CONTRAST 03/23/2023, 8:32 AM FINDINGS: Visualization of the cervical spine from the levels of the skull base to the C7-T1 intervertebral disc space on the lateral image. Postsurgical changes: Plate and screw fixation of C4-C7 hemilaminoplasties. Alignment and vertebra: Osteopenia. Slight anterolisthesis of C2 on C3 and C3 on C4 and slight retrolisthesis of C4 on C5, C5 on C6 and C6 on C7 with flexion which reduces at the C2-C3 and C3-C4 levels with extension. Moderate osteophytic endplate spurring of the C4-C7 vertebra. No acute fracture or destructive bone lesion. Intervertebral discs: Marked C4-5, C5-6 and C6-7 intervertebral disc space narrowing. Joints: Degenerative facet arthrosis. Paravertebral soft tissues: Unremarkable. IMPRESSION: 1. Status post C4-C7 hemilaminoplasties. No hardware failure or loosening. 2. Slight anterolisthesis of C2 on C3 and C3 on C4 and slight retrolisthesis of C4 on C5, C5 on C6 and C6 on C7 with flexion which reduces at the C2-C3 and C3-C4 levels with extension. 3. Advanced C4-5, C5-6 and C6-7 degenerative disc disease, moderate C4-C7 endplate spondylosis and degenerative facet arthrosis. 4. Osteopenia. 5. No acute fracture. MACRO: None Normal [employer] XR Cervical spine Lateral Vi ews W flexion and W extensionon 09-17-2023 EXAMINATION: XR C-SP INE FLEX/EXT ONLY 2 VIEWS 09/16/2023 10:58 AM CLINICAL HISTORY: Laminoplasty ASSOCIATED DIAGNOSIS: Cervical spondylosis with myelopathy ORDERING PROVIDER: GERI VERGARA TECHNMONY NOTE: COMPARISON: XR C-SPINE FLEX/EXT ONLY 2 VIEWS 06/17/2023, 10:[address] C-SPINE W/O CONTRAST 03/23/2023, 8:32 AM FINDINGS: Visualization of the cervical spine from the levels of the skull base to the C7-T1 intervertebral disc space on the lateral image. Postsurgical changes: Plate and screw fixation of C4-C7 hemilaminoplasties. Alignment and vertebra: Osteopenia. Slight anterolisthesis of C2 on C3 and C3 on C4 and slight retrolisthesis of C4 on C5, C5 on C6 and C6 on C7 with flexion which reduces at the C2-C3 and C3-C4 levels with extension. Moderate osteophytic endplate spurring of the C4-C7 vertebra. No acute fracture or destructive bone lesion. Intervertebral discs: Marked C4-5, C5-6 and C6-7 intervertebral disc space narrowing. Joints: Degenerative facet arthrosis. Paravertebral soft tissues: Unremarkable. IMPRESSION: 1. Status post C4-C7 hemilaminoplasties. No hardware failure or loosening. 2. Slight anterolisthesis of C2 on C3 and C3 on C4 and slight retrolisthesis of C4 on C5, C5 on C6 and C6 on C7 with flexion which reduces at the C2-C3 and C3-C4 levels with extension. 3. Advanced C4-5, C5-6 and C6-7 degenerative disc disease, moderate C4-C7 endplate spondylosis and degenerative facet arthrosis. 4. Osteopenia. 5. No acute fracture. MACRO: None Rylie Hilton, - 09/17/2023 EXAMINATION: XR C-SPINE FLEX/EXT ONLY 2 VIEWS 09/16/2023 10:58 AM CLINICAL HISTORY: Laminoplasty ASSOCIATED DIAGNOSIS: Cervical spondylosis with myelopathy ORDERING PROVIDER: GERI VERGARA TECHNOLOGISTS NOTE: COMPARISON: XR C-SPINE FLEX/EXT ONLY 2 VIEWS 06/17/2023, 10:[address] C-SPINE W/O CONTRAST 03/23/2023, 8:32 AM FINDINGS: Visualization of the cervical spine from the levels of the skull base to the C7-T1 intervertebral disc space on the lateral image. Postsurgical changes: Plate and screw fixation of C4-C7 hemilaminoplasties. Alignment and vertebra: Osteopenia. Slight anterolisthesis of C2 on C3 and C3 on C4 and slight retrolisthesis of C4 on C5, C5 on C6 and C6 on C7 with flexion which reduces at the C2-C3 and C3-C4 levels with extension. Moderate osteophytic endplate spurring of the C4-C7 vertebra. No acute fracture or destructive bone lesion. Intervertebral discs: Marked C4-5, C5-6 and C6-7 intervertebral disc space narrowing. Joints: Degenerative facet arthrosis. Paravertebral soft tissues: Unremarkable. IMPRESSION: 1. Status post C4-C7 hemilaminoplasties. No hardware failure or loosening. 2. Slight anterolisthesis of C2 on C3 and C3 on C4 and slight retrolisthesis of C4 on C5, C5 on C6 and C6 on C7 with flexion which reduces at the C2-C3 and C3-C4 levels with extension. 3. Advanced C4-5, C5-6 and C6-7 degenerative disc disease, moderate C4-C7 endplate spondylosis and degenerative facet arthrosis. 4. Osteopenia. 5. No acute fracture. MACRO: None [facility] XR Cervical spine Lateral Vi ews W flexion and W extensionOrdered By: Rylie Min on 09-17-2023 [facility] Work Phone: XR Cervical spine Lateral Vi ews W flexion and W extensionon 09-16-2023 Radiology Study observation (narrative) [facility] Progress Noteson 09-15-2023 [employer] Authentication Interface Message Text DX: [id number] Posterior cervical laminoplasty, C4 to C7, with Paxfire laminoplasty system. LV: 17jun2023 Ms Rubio returns today now 6 months out from her surgery. She is dealing with some L hip issues - bursitis vs hip arthritis. PE: Incision C/D/I, at neuro baseline, deltoids intact, she has lost some fascial integrity but the skin is still mobile over the spinous processes. INV: Standing lateral flex-ex cervical xrays, no issues IMP: 72yo female s/p C4-C7 laminoplasty, doing well at 6 months PLAN: No restrictions. She is going to continue doing her exercises twice a day, sleep in the soft collar for neck hurts and take the Flexeril at night. I will see her back for her 1 year postop with standing lateral flexion-extension views of her cervical spine. Normal [facility] [employer] Progress Noteson 06-17-2023 Sleeping Bag Filler Authentication Interface Message Text Patient was identified by name and date of . Lisa Huff RN Patient at risk for falls:No Falls Risk protocol implemented: No Normal [facility] XR C-SPINE FLEX/EXT ONLY 2 V IEWSon 06-17-2023 XR C-SPINE FLEX/EXT ONLY 2 VIEWS EXAMINATION: XR C-SPINE FLEX/EXT ONLY 2 VIEWS 06/17/2023 10:40 AM CLINICAL HISTORY: laminoplasty ASSOCIATED DIAGNOSIS: Cervical spondylosis with myelopathy ORDERING PROVIDER: GERI VERGARA TECHNMONY NOTE: COMPARISON: 04/01/2023 FINDINGS: There is evidence [...] most likely postsurgical. MACRO: None Normal [facility] XR Cervical spine Lateral Vi ews W flexion and W extensionon 06-17-2023 EXAMINATION: XR C-SP INE FLEX/EXT ONLY 2 VIEWS 06/17/2023 10:40 AM CLINICAL HISTORY: laminoplasty ASSOCIATED DIAGNOSIS: Cervical spondylosis with myelopathy ORDERING PROVIDER: GERI VERGARA TECHNMONY NOTE: COMPARISON: 04/01/2023 FINDINGS: There is evidence [...] are noted most likely postsurgical. MACRO: None [facility] Radiology Study observation (narrative) [facility] XR Cervical spine Lateral Vi ews W flexion and W extensionOrdered By: Edin Toney on 06-17-2023 [facility] Work Phone: Progress Noteson 06-16-2023 Sleeping Bag Filler Authentication Interface Message Text DX: [id number] Posterior cervical laminoplasty, C4 to C7, with Paxfire laminoplasty system. LAST VISIT: [id number] Ruddy SIMON [...] views of her cervical spine. Normal [facility] [employer] Telephone Encounteron 2022 Sleeping Bag Filler Authentication Interface Message Text RN called pt. [...] Pt asked how to send messages in [employer]. RN let her know to make sure she is logged into her [employer] and to send messages to Dr Vergara and they will get to his RN. Pt agreeable. No further questions. Pt verbalized understanding. ----- Message from Judith Palm sent at 05/04/2023 12:15 PM EST ----- Regarding: clarification Needs clarification on her neck exercises. Please call. Normal [facility] [employer] [facility] Progress Noteson 04-22-2023 Sleeping Bag Filler Authentication Interface Message Text Soft cervical collar dispensed to patient in clinic. Normal [facility] [employer] Authentication Interface Message Text Patient was identified by name and date of . Addie Fox RN Patient at risk for falls:Yes [...] little bit farther today than yesterday. Dr Himanshu will want to see her back in 8-10 weeks with standing lateral flexion extension views of the cervical spine. Normal [facility] Basic metabolic 2000 panelon 03-23-2023 Anion gap [Moles/Vol] 14 mmol/L 10 - 20 [facility] Calcium [Mass/Vol] 9.9 mg/dL 8.4 - 10. 4 mg/dL [facility] Chloride [Moles/Vol] 104 mmol/L 97 - 111 mmol/L [facility] CO2 [Moles/Vol] 26 mmol/L 21 - 30 mmol/L [facility] Creatinine [Mass/Vol] 1.31 mg/dL High 0.50 - 1.10 mg/dL [facility] GFR/1.73 sq M.predicted MDRD (S/P/Bld) [Vol rate/Area] 43 mL/min/{1.73_m2} Low - PINF [facility] Comment on above: 2020 CKD EPI Equatio n using Creatinine without Race Comment: Estimated glomerular filtration rate (eGFR) is calculated without a race coefficient. Values should be interpreted in the context of the patient's full clinical presentation. Reference: 1. Khan C, Baweja M, Credoc DC, et al.. A Unifying Approach for GFR Estimation: Recommendations of the NKF-ASN Task Force on Reassessing the Inclusion of Race in Diagnosing Kidney Disease. Vietnamese Journal of Kidney Diseases 202;79(2):268-88.e1. 2. N Engl J Med 2020 Vol. 385 Issue 19 Pages 8612-0664 Glucose [Mass/Vol] 187 mg/dL High 80 - 116 mg/dL [facility] Interpretation and review of laboratory results Abnormal [facility] Potassium [Moles/Vol] 4.2 mmol/L 3.3 - 5.3 mmol/L [facility] Sodium [Moles/Vol] 140 mmol/L 135 - 148 mmol/L [facility] Urea nitrogen [Mass/Vol] 40 mg/dL High 8 - 22 mg/dL [facility] CT Cervical spine WO contras tOrdered By: Alexandra Neri on 03-23-2023 CT DLP 324.15 (mGy.cm) [facility] Work Phone: CT Series Topogram,Topogram,C SPINE [employer] Work Phone: CTDI VOL 0.07 (mGy),0.08 (mGy),15.96 (mGy) [facility] Work Phone: PHANTOM TYPE IEC Body Dosimetry Phantom,IEC Body Dosimetry Phantom,IEC Body Dosimetry Phantom [employer] Work Phone: [facility] Work Phone: CT Cervical spine WO contras ton 03-23-2023 EXAMINATION: CT C-SP INE W/O CONTRAST 03/23/2023 08:32 AM CLINICAL HISTORY: [...] spondylosis with myelopathy ORDERING PROVIDER: GERI VERGARA TECHNMONY NOTE: COMPARISON: None TECHNIQUE: Thin isotropic axial [...] and severe neural foraminal stenoses. MACRO: None [facility]arrative[facility] EKG 12 LEAD - PERFORMon 02-23 Diagnosis Normal sinus rhythm Nonspecific ST abnormality Abnormal ECG No previous ECGs available Confirmed by BREN AUSTIN ([id number]) on 03/23/2023 6:39:31 PM [facility] P wave [facility] by E[facility] 77 BPM [facility] P wave axis 73 degrees [facility] P-R Interval 126 ms [facility] Q-T interval 372 ms [facility] Q-T interval corrected 420 ms [facility] QRS axis 72 degrees [facility] QRS duration 80 ms [facility] T wave axis 59 degrees [facility] - Blood bankon ABO and Rh group Nom (Bld) Blood group A Rh(D) positive [facility] ABO and Rh group Nom (Bld) No Previous Results [facility] Comment on above: Patient does not req uire a 2nd sample drawn prior to surgery date of 03/31/2023. Specimen meets Blood Bank's Pre-Surgical Protocol and is valid within 14 days from date of collection but will at midnight on the day of approved Surgery. Blood group antibody screen Ql Negative [facility] ABO and Rh group Nom (Bld) Blood group A Rh(D) positive [facility] - Chemistry and C hemistry - challengeon 03-23-2023 Albumin [Mass/Vol] 3.9 g/dL 3.4 - 5.1 g/dL [facility] ALP [Catalytic activity/Vol] 138 U/L [facility] ALT [Catalytic activity/Vol] 33 U/L [facility] AST [Catalytic activity/Vol] 39 U/L [facility] Bilirubin [Mass/Vol] 0.7 mg/dL 0.1 - 1.5 mg/dL [facility] Bilirubin.direct [Mass/Vol] 0.20 mg/dL 0.10 - 0.30 mg/dL [facility] Protein [Mass/Vol] 6.2 g/dL 5.7 - 8.1 g/dL [facility] Glucose [Mass/Vol] 183 mg/dL High 80 - 116 mg/dL [facility] Comment on above: Follow Protocol Notified AURORA WAKEFIELD MD Laboratory - Coagulationon 1 aPTT Coag (Bld) [Time] 36 s [facility] INR Coag (PPP) [Relative time] 1.13 {INR} High 0.90 - 1.10 [facility] PT Coag (PPP) [Time] 12.6 s [facility] Laboratory - Hematology and Cell countson 03-23-2023 [...] 11.5 K/uL [facility] No Panel Informationon 03-23 [facility] Interpretation and review of laboratory results Normal [facility] Interpretation and review of laboratory results Abnormal [facility] Interpretation and review of laboratory results Normal [facility] Interpretation and review of laboratory results Abnormal [facility] Interpretation and review of laboratory results Abnormal [facility] Consent for Treatmenton 10-23 Consent for Treatment [id number]#1.00 CD:127 Normal [facility] Consultation Noteon 11-11-19 Consultation Note Patient: ASHLEE BANERJEE Age: 72 years Sex: Female : 1950 Associated Diagnoses: None Author: Gerry Jerry MD Chief Complaint 11/10/2022 9:57 EDT Neck pain History of Present Illness 72-year-old female long history of low back and lower extremity pain. She was under the care of Dr. Tian at [place]. She recently saw Dr. Vergara who obtained [...] Itching. Current medications: Home Medications (21) Active acetaminophen-hydrocodo ne 325 mg-5 mg oral tablet aspirin 81 [...] , Daily Nasacort Allergy 24HR , Daily [place]-3 Fish Oil , Daily Probiotic 10 Ultra Strength Restasis ophthalmic 1 drop(s), BID traZODONE 50 mg Tab 50 mg = 1 tab(s), Oral, Once a day (at bedtime) valsartan 320 mg Tab 320 mg = 1 tab(s), Oral, Daily Vitamin D , Daily Zyrtec 10 mg, Daily Problem list: All Problems Diabetes / SNOMED CT 057747369 / Confirmed High blood cholesterol / SNOMED CT 56524326 / Confirmed HTN (hypertension) / SNOMED CT 8061288136 / Confirmed Hypothyroid / SNOMED CT 51214886 / Confirmed Overactive bladder / SNOMED CT 4451661130 / Confirmed Histories Past Medical History: No active or resolved past medical history items have been selected or recorded. Family History: No family history items have been selected or recorded. Procedure history: Electrical stimulation of bladder ([id number]) on 08/05/2021 at 70 Years. History of hysterectomy.. ([id number]). Comments: 05/19/2022 12:39 EST - Day Mala [facility] Dr History of right total knee replacement ([id number]). Comments: 05/19/2022 12:40 EST - Day RMAMala Celestina [address] [facility] [address] Gabriel Complete repair of rotator cuff ([id number]). Comments: 05/19/2022 12:41 EST - Day RMMala Marie [address] [facility] [address] Gabriel Complete repair of rotator cuff ([id number]). Comments: 05/19/2022 12:42 EST - Day RMAMala [address] [place] [address] Gabriel Social History Social & Psychosocial Habits Alcohol 06/16/2022 Risk Assessment: Denies Alcohol Use Substance Abuse 06/16/2022 Risk Assessment: Denies Substance Abuse Tobacco 06/16/2022 Risk Assessment: Denies Tobacco Use . Physical Examination Vital Signs (last 24 hrs) Last Charted Heart Rate Peripheral 68 bpm (NOV 10 09:57) SBP H 150mmHg (NOV 10:57) DBP 72 [...] for acute (more content not included)... Normal [facility] Comment on above: Result Comment: Elec tronically Signed By: Rosalino FOSTER, Gerry Abbott\.br\Date and Time Signed: 11/10/22 11:01 EDT HIPAA Forms Officeon 023 HIPAA Forms Office [id number]#1.00C D:127 Normal [facility] Legal Correspondence Officeo n 11-10-2022 Legal Correspondence Office [id number]#1.00C D:127 Normal [facility] Legal Correspondence Office [id number]#1.00C D:127 Normal [facility] Office/Clinic Note-Physician on 11-10-2022 Office/Clinic Note-Physician [id number]#1.00C D:127 Normal [facility] Patient Correspondenceon Patient Correspondence [id number]#1.00C D:127 Normal [facility] Patient Correspondence [id number]#1.00C D:127 Normal [facility] Patient Correspondence [id number]#1.00C D:127 Normal [facility] Patient Correspondence [id number]#1.00C D:127 Normal [facility] Patient Correspondence [id number]#1.00C D:127 Normal [facility] Patient History Officeon Patient History Office [id number]#1.00C D:127 Normal [facility] MRI Spine Cervical w/o Contr rosette 10-22-2022 [...] REPORT Dictated: 10/22/2022 3:36 pm Agustín Martinez MD. Signed (Electronic Signature): 10/22/2022 3:36 pm Signed by: Agustín Martinez MD Transcribed by: KENYA Technologist: GIANNA Technical Comments None Normal [facility] Consent for Treatmenton 2 Consent for Treatment [id number]#1.00C D:127 Normal [facility] RAD - MRI Screening Formon 0 10-16-2022 RAD - MRI Screening Form [id number]#1.00C D:127 Normal [facility] Physician Orderon 10-12-2022 Physician Order [id number]#1.00C D:127 Normal [facility] GLYCOHEMOGLOBIN A1Con 2022 ADA RECOMMENDATION SEE BELOW Normal [facility] Comment on above: Result Comment: ADA RECOMMENDED LIMIT 4.0 - 6.0 ADA THERAPEUTIC TARGET < 7.0 ACTION SUGGESTED > 7.0 Performed By: #### A 1C #### [facility] [address] [address] [address] Fernanda Sanon Glucose [Mass/Vol] 134 mg/dL Normal [facility] Comment on above: Performed By: #### A 1C #### [facility] [address] [address] [address] Fernanda Sanon HbA1c (Bld) [Mass fraction] 6.3 % Critically high 4.5-6.2 [facility] Comment on above: Performed By: #### A 1C #### [facility] [address] [address] [address] Fernanda Sanon POINT OF CARE GLUCOSEon 06-24 Glucose [Mass/Vol] 138 mg/dL Critically high 74-106 [facility] Comment on above: Performed By: #### P OCGLUC #### [facility] [address] [address] [address] eFrnanda Sanon Coding Summary.on 06-23-2022 Coding Summary. CD:[id number] Gh0 bWw+PGhlYWQ+OP0FGKRlD77 roBDqrF4GX7vDJP2OGHMUWU OPVN3OKO4xbDW8SParS1Bfo iAv JpxnqPPfAX61QMf9QER8jYa mHUxjbJ3oyMVuM6b6LqUdNL 91hP68RSynOBZlMpX1ReNsw jsgbWFy Y7xhBtQkfEEtDag+PHRhYmx lIHdpZHRoPScxMDAlJyBzdH mgUO1kZb6vIVQnYIMsuYrzp HNlOiBj s8xeACCzIWmrBB3vrIwcZ1A teRK1JRRqw0c0He77yTG+PH LcDPQ9uDslXLida391JsNyl 0leOYX0 hXWzVStqOZC4E80qk9E0IBC dPGKaSZS3kJS9yH0neElpls xtQ1ZppRHgAhD4KJM8zRFxz Z3riMsv dtgkoN6zMen+M65ZPU5ZCTC XQC5GOiu0W1YoHsoluHY+PC 35QXAtQO23dLGjeAXur1wam Hh6ZrQr BWUcUNU7vZmfRRbgs3WfXJB iR31klPYfd3Q1OXAgwLrmjG LlNrZdjEQ9cZ6yNBwriyyfh 2hvdzsn Wkigl0maxc66pQ37S09zRAs mBIQlOSR5CHFiHSNteUdiib 0mfU6sHk6+SZgvd1qwg9mnx Lq6AkFn SMGevgFzhItgUPI3c9KrPz5 4G0GlfSosx6YuGyp7ez86qS Got8R1wOI9FKjrYHDgbZ6uD WxlZnQ6 DMKeByRxwP91yHQaHVyaKj9 kcQdzaIugKH1sFUPnsdexNW BpgG3vPMXfdPAphRzzVJ7fU TBpbjtm d188MpPaHSE5WFPieAZqA9F zbN0cLrFvOVRyTHYdL8LxnL MaULvoN361TZdcWlX0VYPwd fSbU1Qe DHBneMyhGkU3x0S9Ml1Nf6Y kwzupAJW2NVmfLUQiWkOrHt ZjQkS8N8RiAzh2KHRhqBywG D3uI8Ry HIEfifcfkcefqZT7FFMwJTA frP91lCXiRPyaKi1is1M9l0 82NLYbZGJvyI22Pa5wqWurO TBwdCBU oK6bqnnao2ajikidQxMbEKJ qXUw1AIc5FNZweAbrWyAlJV G1HpA0NCY6tABobW3ylQbxp dnufO3n Oyc+P29jaN5mTWN3TYV6lnw gEFHsvsEsEJ66BU91T5EvCh wvdGFibGU+PGRpdiBzdHlsZ V4lWfMi j8nzq5YhWXauX9LyFZPaTGy kMql9OEObMAJ4oFO4pU8wSC UaXCsng5M8hZH8S5RlbvJbe b5ol1fa AYZySLnkH19odSOpd9S1EYK bkNO4BPYdgNkrYsPzqJ31Du c+TEQcgXjmx0RcIhzfz2dqp 9hyxKv4 CzTfGVGunyOdhYvpQWE1w3Z nGj50F58yPFqaVFBpRAOjKZ IbESQibDunjn9ruX4yJg6+P GNvbCB3 xDX7qQ1xHLPkEiQ7MDjoO48 2MiYrgIIoRdeda2egm0koxM u6WpKxEEQhfnWmkTuoASA8r 8PmEi83 C93zCTlrWEYoSRRmJMZkLXU xrPiqlk6mtW3tWn1+PC9jb2 qfgk74xK56oOS+GAAqNFX1l WxlPSdw IPFyzX5sZHqbExQ4SJByCnK djO13dUWtQXaaYi6uyRbpjO faCO5dNVNkhvqbn410JyQhf 2xkIDEw jTUaDLnuWLK2P97sv6H9HPC iWTMuKEY2pRK4cX8wwCdjre ogbGVmdDsgdmVydGljYWwtY YcnW715 IHRvcDsnPlBhdGllbnQgTmF lMBw5N3JbEby1TMBioGagDA 7fnBAxPIpzCk8xmCjwfXllY Q6pRJDe vvabm267UmCar3xeTHTyhAS wGYbbJZR4V86qz2M2BVGzNX IsJJF7tYB3aP3ahTffhrixr GVmdDsg plObmRzoLMwuHVwxP652YAX fwUvnDjOfyvBcNPGxkUA3SM 16DY19rAMtb0V5zVX1J5RbT GRpbmct xtdslHR6VRBqPGNjlX01Uc4 cfIfwXn5zVFEvHDY6NJJfkF XiB2PtfG7kLuIxSSDeINUvV 3RleHQt PNubJ703XTepAgO7MMIouzP oP9AvRNHwtUnzQqX6q0T7Up 7EM6I8WT23VU17xFWku6D6c VW9K8Ku UVQfurbxiusnqQV3GEKaATK xlL43Vf6opMovKx8tKXMtAC O5CVZkcBOhX1ZxtZ9mPjNbD DAwMDAw A9XinQNmRSbnB759BWncYvO 0BVSjfpUoP7CvBEUcsGgaAd R9v6N3Em5JJSu4JZ11ZB51u RCht0F2 bQH5A4XuAPVhhmiugqkqtPE 5OMTwPGJpeX76Cx0cmBcuWj 0yZJSwHIG9MXZygZNwO1Lqs W3kGkLw XGCzXPYhM1YtoDPtITprJ11 9USedLxF8EREajwXtX8WjTN KfuYehGoS5b4P0Po0KCYRdY G04IRL2 jKR9MO85DI48D9AdUyckaHF ibGU+PHRhYmxlIHdpZHRoPS ygSWVuCiWtpOnnUG7cBs7uJ GVyLWNv eQjkfQLmBbKav0qsCMZeNBs oAT3neOddF1XpjAB4RCIsl4 m2Kg53C98qO7GzuMF+PGNvb TY4cYE7 zV0aTgCpJvT9WKloX757IcQ jiZVsKmane4lox4qoiCw8Bf Q1RVYfsjPbtTwgMWZ9u0OaL q36N06z IHdpZHRoPSIxNSUiIHZhbGl luw4gbR0lXe7+ZODaiSV7tI Y8sH1mMcQsUgH8RSssF016F nRvcCIv Onhaz9jqr7ouuDy8VvMdKCC vrmZjpRlmALX8x5RhJq01Q8 OczGsdz0BdCcr0sx21wIQab 2H4tHH5 V4AnVMVzoolddMIneZamCN7 bENVjfcvuNDQfrS0iXRXlP8 c6XfWrXqK3WDlyC6UqqzN2G DEwcHQg QAgtIKY4U43rd6P8MCStRTK pGMZ6iDW3zG2sfTqrqthkyS VmdDsgdmVydGljYWwtYWxpZ 246IHRv qRefVRMgyG0yRYNfuWRwuHj uAY0rTLCuqwjaNfTOFkNaBG URFdqiYC6AFSGVJZ59N6HvB hm7DLBn yXiiLZ5mcRFvBBjcIn8wuKo kfSyyUO0xLNMisgprGBKegB 4aMUEofEJtjCepWP0kEGCov icbw991 TbCqDCD2SWQdvBTtJ6EubG9 aEfXyPHXsJMVtY3LflDHlNN abL599VBdlXlZ6WCFuxwPjX 2FsLWFs gRupXjK9h2I6Kq2uGP4pRU0 mYLExFS75RX42yYEud9D9hC M4I8PcZHOicikibpimdYL8M DAuMDUw dH33tRRjVZjvSq9pk2V0u48 0NUXhYNUqjB24Xv7puSpjZB JvuWWZzL4qkjygi1tpauyuZ zAwMDAw WYr3SVg8VVPcmRdrEqLiBJX 2TuA3PVI1kOPgsQ1tjQdmqc otnA4mNoz+VkRdTTBdjbR2Y 2UfOjv4 XNZflObcYR0ofPVqWDvoMh9 vzJqkqMvfSG3wKWDezpmtFZ ExvY6gTUZmgJYhbHchDF2zE TBpbjtm w676NaLgAUV5IRQsmXEgB0H fpP6hSkKjUPPiHDBwO6CxbG KnSDanS256UPxdBoW3XZBli hYeX0Rp WHLihEvoAvT4x7G8Kl8WSK3 lbMF1F0KhBdu2PVRncJsnJU 2dgXTmOLfkYr2ywBqmqEpvV M3iQSVp xsobGLGkoE0iHOYehKGbtPn xDX0jMZZbsvsgx425EuOsNL C3ZNKpwHIfT0NyrA3iIqXuK DAwMDAw N2IdfGXhGYbrT970QUgzPmA 1CPUepxXxI3ZaFIDtrPxaLg M1g0F3Gq3YrWWaYHNbMC01T N07CH14 M4YdGltnaFLxtLQ+PHRhYmx lIHdpZHRoPScxMDAlJyBzdH ziER9xYo7zPWNhOIWgqBsud HNlOiBj r2fnWUAfOTiwPJ7cdLdgQ3Z hbGA9PPKzk0q1Lw21V34bG7 JvdXA+VJCieAD4cBX7dN2nH zAlIiB2 KIkrS339HsBkfMOfEjhvf1z pb0ezeCz2ZxZmSMLmlmGsmJ ulPQX4n9HdSr17C63aNGifN HRoPSIy DQMdIYVajScfaz8ttK0eKu6 +ZSJzbQY7nAC6xW5gPbVtJn L9LTmfR201PjIncQYjSbulT 45fX4Uw dXA+LBRePpq4RQMktAnfSI7 cqZKbYCyeGw7kZQH6BaRyJk UeXZylN2BnYCKcuwdwenvru YM9EKUa FCDarV09Yg8ujXzzPz7oHMR mUXB4BZCeaAOqV4XdnG6oXj UdBKPcXTIfU0QmzOGzLOwgR 246IGxl UjF2VHBvfbGlX9HzUCHhfEt qXgI6a7P9Lu6TyKvfnFYoRB 1pLqZdFOr9Y0BtSjh4ANPoy RdmAK8k bCWzRStbJy7iyCkkvUkhBX3 tXXUqxywoq214DkYpu2hmLB MnlWMoHVbmMLE8W27rv9T6E CMwMDAw KPS5xHS3vM3hpUkydfnliRG mdDsgdmVydGljYWwtYWxpZ2 81GQEpyCemNwNVQky7E8HkB cb6QXVw gYnfBG6tgAQyBLcjVc1glDr rkMwwZT1uYZMzibsll728Gb Uoy5qeRYPqpRCjOPxgMBJ4U 57gz3Q9 HGSsWIIhRYB4iKO6cJ0ftQs nbjogbGVmdDsgdmVydGljYW exPPnwT235BEYmwRsjGl2RZ dm0M2Mw Och1IMKjfLpzRL6wbLXxSXr xKc0qpKnubTjaVT2aGZPrpy wou162WfGuz6xuODFgkMRrH GltZXM7 I77cz7Q1GPOzYXJbMTN1iAG 1fM3ytPajkxcbdRBxeDoyfs CdrSqvJZpqRQjcC200OBGcv DsnPlBh eWVyOjwvdGQ+CJ10er40C4S tPblsJfy9UJDsHJM9jEZ0lB 5pKGDdQXojp9X2qGF5J0Oqw rDudq3l b2xs (more content not included)... Normal [facility] Consent for Treatmenton 05-25 Consent for Treatment [id number]#1.00 CD:127 Normal [facility] Consultation Noteon 06-16-19 Consultation Note Patient: ASHLEE BANERJEE Age: 71 years Sex: Female : [...] 0 Nasacort Allergy 24HR: Daily, Refill(s) 0 [place]-3 Fish Oil: Daily, Refills(s) 0 Vitamin D: Daily, Refills(s) 0 Zyrtec: 10 mg, Daily, Refills(s) 0 acetaminophen-hydrocodo ne 325 mg-5 mg oral tablet: TAKE 1 [...] All Problems Overactive bladder / SNOMED CT 8455705910 / Confirmed Diabetes / SNOMED CT 889696776 / Confirmed HTN (hypertension) / SNOMED CT 0595407480 / Confirmed Hypothyroid / SNOMED CT 99732975 / Confirmed High blood cholesterol / SNOMED CT 86693271 / Confirmed Objective Vital Signs 06/16/2022 13:42 [...] hip flexion 5 -/5 Integumentary: Warm, Dry, Gause. Neurologic: Alert, Oriented. Psychiatric: Cooperative, Appropriate mood [...] right lateral recess narrowing mild right foraminal padilla (more content not included)... Normal [facility] Comment on above: Result Comment: Elec tronically Signed By: Janie Henning PA-C\.br\Date and Time Signed: 06/16/22 14:02 EST\.br\Electronically Co-Signed By: Geri Vergara MD\.br\Date and Time Co-Signed: 06/21/22 21:27 EST Office/Clinic Note-Physician on 06-16-2022 Office/Clinic Note-Physician [id number]#1.00C D:127 Normal [facility] Coding Summary.on 06-15-2022 Coding Summary. CD:[id number] Gh0 bWw+PGhlYWQ+CZ2LFWRiJ46 mdEQgvQ1LS8rYYN9YXJZDPE KWXN9RIT0yzET9HDsvJ0Lbc iAv BgmskJUhMX47AUn4IXR1lUi jXPprcP2mhYTjF5q1OhWvKL 03kB23IXhyEOUmMbY5YsNuf jsgbWFy P8egGcUynCLpKas+PHRhYmx lIHdpZHRoPScxMDAlJyBzdH ikOL1rCn4kPQIvTIShzSojq HNlOiBj c1usAPLhVCxvKU8zdOwvR8G kwHC9YNTam5d1Fz03qYQ+PH NiWLG2zTcwCAfwv663EqEbe 8raAIN4 dCSxUDmkCES2B92py5P0IZY mJNYlJRF1aSV3nJ6jzQdkkw wvA5DsqIWyPdU7VQE1uLCje B3toMnu guvaxO1oGyp+G93HBZ8BAPH YWU1WUbe8R6JaUcgspBG+PC 27JTXnBS79wCIxvCMlv1ndu Rk3QrRz UAEpLIJ3yXieHYazj5GyKXJ eH46yhFSmj3N9TGJclUxnqN WwXtXmhCU3lV9bUWtoqfkut 2hvdzsn Tdrgg5naen76fJ97J84uQDe dFETcBGU5UKMoFTHnfMgbaf 4ubF3qQn2+XKcmv7rrw0wkl Os3WlWb RAGqtiQhkRvuMZQ5g2EjWa3 0X4GfhIhmk1IgMki6wu15wQ Dzc2J2jED9COyyLWSetZ4dF WxlZnQ6 HWFaHaKguA40sAJnGTpxZu8 laGbngCzrRN4ySEYpcrrqQK PsaP6dRTKvmNZyhUheIS5eJ TBpbjtm j871FsWkGEE0IQWumWGvV5O eoY9qOmZkQLFeSDTnT2FbwT XbWEkyV612XVbbVvX5QKZpe dVmU2Lm YVInrVnwTuA2f1B7Rc1Fk3M pteidKRV8LPgbQFLqGjYwRj HpHkJ4M0LhHfo4IUDssBxcI S7aH3Wh SRTtglzzywrpuUH7QDPzMGS rmD23oLWuLDopXm5eu9W6z7 25XJBfXXCmqK84Tc4wtZpxL TBwdCBU vI8kjficf0nlvsdtAqVyCIB kDNg6TUq2ZXMadRbjTjRbAR J3XsV2GNJ6tZZnaS1cpZxka mlimB4p Oyc+E98ylR3zFXW3DNM1sku lAIXqcgJkMG63AB69L1FvFx wvdGFibGU+PGRpdiBzdHlsZ H2qTxTo g6cgi1LqGAhjR5ImRPSoWGe dAqc6HHTlBXH9eID9uZ5jZZ XpQLcnk4J1wXG6T9MazaOzf n7oa7hu QENmFJnyW45xoIVfi3N5VLV duVG0BAFdrSbeIfYjwK42Hy c+OKEixHqvf0MoFaftg5kyw 8wgqOm4 UuNdHCLchpYytIjpYHQ8h4S pEp16A37gPLnkVEXlBPVhAK TjPEFucKraee1gsV9bAy8+P GNvbCB3 eHX7mB1gXWEzWdC6HUewT97 1RtDuwUOlLfxbp7vmk8ideL d5RgQdOPTldlUypSgqACB6j 0NiSu71 Z73bWMsuSTWlNBQqFHVuCFI hsWqtcx5ciS5vFf3+PC9jb2 zaew62hV88wJL+SNTqJQX7e WxlPSdw TFJynF8bUFvkYpR6PGNfWqG knZ81wWHwABxyHo7rhKyyqS vmEV7bRLGxtoftd515EvJxt 2xkIDEw gFMaPUblXMX4R78gi1Z0EKM xCJVdFCT4hDB5lG3cwCrsod ogbGVmdDsgdmVydGljYWwtY JtqO903 IHRvcDsnPlBhdGllbnQgTmF nJSt8H3YxTnd4KUHjuVzbSC 1jmIUoRYvdOy7fmGyxcObyC E8aQNHa uofeb124QaOdj5alDSSmvYT fPUofZWE8F33tx7D4EGAhBQ SkBNX4dPI9iB0ljKmgxlsab GVmdDsg dcKxjOecRGckASczF763MDB qxTgmIeKbssFiVEGgeRP4NQ 39OM43hUMnx9G5oMI0V5GtM GRpbmct iyakxQW8AZNaEJFzgK35Ly8 wxIgqMi8gPUZnHOP6PYMxdU NaZ1BbvP7vJdBfSRQeAXOyI 3RleHQt PIyiE778YXziDlK8VURiedJ gZ9UuWWCnaSbfNlO5t3V4Pj 1ZP1V9QC21KD51tIYyx8R3i FQ5Y8Fo QYDnadhimuuppQM0ETYvYVG ilD24Qp9wfEtpVh1yGKHfKI F8RXWbnBIyC1HxrO7qAnWoI DAwMDAw K5StjPFbBEkpT324QKciUeD 0HNRctqTfF0VgGEJyeMxzSx J7q9G8Zn6FMCj3VH67PK60q NQfd9G0 hGV1S0StERPoaltxyhmrrBK 8CPGkOYSvuJ39Aq1tiTnqOu 7jGVJpOWW8AOLtmUAuL9Lzz X2mXsBe CJTgDNSqP2ZejURlWPwgB33 5YTukInT3VCPtlnWsV1IjGH DkvIosIjD7o9Q3Mb5FRNLsQ B33WJB4 vBF7NA32RA88V2YaMswwbVJ ibGU+PHRhYmxlIHdpZHRoPS ctFVKhYfEwmKxvQT8vQf3fN GVyLWNv iGznyGUvSqBio5yjZKIfFDq fCF5hkAjqV3RfuMP2LDTat3 v7Gv46M23dP2TscCX+PGNvb TP2bZJ4 wD7iKbMoViN0YRcwP360PhS loBWnTgxzb2ivg4nggJy0Kd F3SFEapbGdnBhtSDI1k5MdD p51V57i IHdpZHRoPSIxNSUiIHZhbGl vsm4tkE2tAg6+UOIyhAX8aY S6cB8xDdHmEvK0MQurY530J nRvcCIv Jlliu1qsz8vxcCz3TaUwBBZ vhoVfnFpcKLS3u2MpJy57I0 ZuyOasa6YsOnj1rj82hALnf 9A2oNF6 G6ScKALvldesvDVjmArbGF3 oCMWzprunJAKtuL5uOFQnB0 u6JjCtTzP5XAotY0PvuxO7C DEwcHQg BUfcQSY5I85sf0A7BBNzXEN wEPB7gXU9hC7osQldoxxklA VmdDsgdmVydGljYWwtYWxpZ 246IHRv aVepSRAdvU8eNBVbdNXlqFm hJW4vTSDhvnqjGzAPVzHxNO KYPgqpCT3QAAMYHQ34T1BwI nm4USDn wRuhDS0eqGGfZIywMb7eaZz vfIvaVH1aUZSgzzkwJYZttN 5tFLPdsVFlyZnvMH6yQUKlo mzaz954 ZwXaJYL5EXIumZCqX7RxiS0 hHqSaNFGtBREeX0TfkMJvBY frN636CPahWkC2JJChgwLoB 2FsLWFs zFgpGwO3w2T8Fp3xRY5aZE4 uBGWpDV18AN23qPRay1J8tF B7W3EjEZEvdggupdpajXB8E DAuMDUw xC22eGYeHQxtMz7oq0C3j28 2QOKaHWVviB78Id5goNiuNY JucIGWmR3scosug6rscigsL zAwMDAw XCv7BGw3OSGslOptQkHiLDA 4SxY5PSS6fQXyxK7cnEgwfa lviW6kAjd+EqQqMCVnhxD2M 8LnCqa0 VAZtxJijGD4skDEaOXzqXu3 hvEgimGmkTX1jIVWoiojiSL SbwI9bETSciLSosTygSU3iS TBpbjtm c989MjXqBWV2GHPvxGIoK1Z svM6bCbIjSXHrKLKoE2UndU BbCEifB901RCofDnC3FUTrr eGhS6Ci BLXxqPftJnB2r8S4Cp7YDD2 vtOU8K6QoXxw3YYWzqUoiHT 1txDDxHJcqXl3otVbqgTzgP R1jTENk pdupNYRaiE0iZREzaBCbjIy yHO4sHFKagnsip097FeFmCH F2DBWptVAsL1WqbU3gPjSuQ DAwMDAw H4HvjIHkTOtmU277UDqbWsN 1IKDsfqIvX4GgQDKlcIvfBg H2d8S5Sc3YgMHzTRJqYC11V N77GC24 D2PiAnfjlWJwwCN+PHRhYmx lIHdpZHRoPScxMDAlJyBzdH odMZ2bMr1sYFZrLKXfsMlqp HNlOiBj h5thDXKfGCwvNG9qzRulN4W kiIB0HRMko0a2Rc22J63yU3 JvdXA+HZBxaFH2zXS0dM3sD zAlIiB2 REzhD617IyRhaTQtJqlon4h kd1bolXe6BlEqURMerdDpgT eaISP0v3OlVj12L61gGJaiB HRoPSIy KJZzQQLwbTmpoe5vfM8nHq7 +YOOsfWQ0eFP6kO2qQfLqFf R5RLsqX436QuEmsMFkAvjnV 64fK2Fw dXA+UTSoWmc0QUXnqZisGX2 nlGCyGRkvKq9iMQO9GbNbVq OeWRkzM5UiDLRhhnoryyxpg GG2AGSg KVWzbO74Zf7cwPvtAr9yCYI dIKM3BYRacRGcH2BwxE7gSi XoNEQcXKKaV3IvdQVmLAksJ 246IGxl TiJ3XCInqlIzH1RwXFKexQk qArD5r7W7Pb0QzXmymVBtZG 0eLtSeQNl7C7PmRit0TQJlk YscDR5s bVEmYYjxBv0wiAywsHkzUZ3 rTPCszhmoq680GuIxv9vvSG CpsTGyTSglQGA4U09ph8N0K CMwMDAw UGH1kBB7uX5iuInjuobnkXV mdDsgdmVydGljYWwtYWxpZ2 27BAMzqPrtVxFIZfd9P9GgM ef4ZICd dZcgTP0kkTWdGIhtQx5wxEn ojSieDN8iODJrbrkrm126Wa Xyw9uvLASdqZRxCKngTBL3I 08ys5S9 XILiYJXqJQK2gJD4uI5jvPf nbjogbGVmdDsgdmVydGljYW kwCXwvX774IEMzmUobJr4WR lr5G7Uy Adj8NTWmiScdDP0qtQTwTEw qUc9bkIjktTxaOW4xFXUnuq itf234WxTsj8zaMBFimCKcJ GltZXM7 I45hl8N1KWArMDWxHOE9nBU 7eG2tqSdcvhwayUBvlElskl HlqBwyGBvkRVqgA328GKNbp DsnPlBh eWVyOjwvdGQ+RT02kf64I0D mNllmLuz1LGTvXDK3cZO0rG 7zBAVkVUzfv2G2uSO6N9Nxh xRntm0k b2xs (more content not included)... Normal [facility] MRI Spine Lumbar w/o Contras [...] by: KENYA Technologist: ADRIEL Technical Comments None Normal [facility] Consent for Treatmenton 05-24 Consent for Treatment [id number]#1.00C D:127 Normal [facility] RAD - MISCon 06-09-2022 RAD - MISC [id number]#1.00C D:127 Normal [facility] RAD - MRI Screening Formon 0 06-09-2022 RAD - MRI Screening Form [id number]#1.00 CD:127 Normal [facility] Office/Clinic Note-Nurseon 0 06-04-2022 Office/Clinic Note-Nurse [id number]#1.00C D:127 Normal [facility] Physician Orderon 06-04-2022 Physician Order [id number]#1.00C D:127 [facility] Physician Order [id number]#1.00C D:127 [facility] Coding Summary.on 05-21-2022 Coding Summary. CD:[id number] Gh0 bWw+PGhlYWQ+TO9KOTIzB42 qpSSprY6PY1sLFX9UGZXXBH KOFQ2ILA6tlRX4LCxfV7Fxu iAv XwpseOQwNT18LAg2EYM3pVi xWFazpV7njNNwV8v6BsQgUC 72hB00LWjmEDKbDzT3UtXmg jsgbWFy X1rvOyObrQHbEkz+PHRhYmx lIHdpZHRoPScxMDAlJyBzdH owJL7jCl9aVQHcLYNdrSskd HNlOiBj g4gpRQPgGGihTE4pgVxsS0X rrNU2YBHlb8m1Yp29lRL+PH VcERH3cEjmUWojq076YpZmp 8sqQFC8 aAZjRQwzTVE9H78kz7R0AOJ eCEFrQON8cVM7yI7wcKtcfp eqU4RngWRyQrO9HJP9oCIej J5fqZvp vbstqU0vHha+N14FHS8PAMH OFN0KNqc3G1JdUccrbEM+PC 69GNDcEV11rXPczKMgw1bpk Om2FuWe YZZkAUM4qAirFVnif8BsNHB pM33ovXJsl4Y4YKFllJrbqX TyPwDehSL5pY5zWVtbuzgzh 2hvdzsn Nnntv2eppf08wL18L16jGBg sTUZmZAX1CHNfLCEbfJsklx 9mpH2iFq8+KSnim5mvw6bkb Kw5GcIj EDBgtlIqpDxbLSF3n3HbJy1 0F3VrcWrzn8MpPnf2vk67dZ Gue5Q3iEF6WXzzYMEcuE7aS WxlZnQ6 CKZoDfPwmP25qRTxEVbuKk1 tnWnakGxqNK1aVTHctcxvAO WrfG8qXOBjkCAtuTmyIW9bF TBpbjtm x740IyHaUHY7VTOtlDKgF0Q uyH6nDpGiNGAzMAXlJ0QbsF KuQGovU058HTstHhP3UHKho wBuS9Eh JAUqaMdbVvJ8k2F8Ei1Zk8R xbclsDFB5OLkiGYJaNlM1Fu UfPlH5O3ZdVco6OZFnkIgwA S1qB1Wr GEDzxbzaccldjRD5TERyPKT xvV24fOUxGMvcWs9dh7C4i4 19TYJsBVEjqD70Ow8odXqwB TBwdCBU uA8vifrqc8sbmfhcDoTuRWE ySKa9NOv1RRImmIfwJkWvOJ I7WyJ1OZH9aBJthG7sgTumz blkuD4m Oyc+V46mjU9lWFN0AJD6psf lMJIwdbQvIE71IE78O2ZlDc wvdGFibGU+PGRpdiBzdHlsZ O1hKyNj w5sps5HhLFsvY5FxJNXwSLh oHaf1WQGtMME4mTD8bX8uTK TdHJsbb5N2jBU8A6XhjgVzb y2ms3rv KJNjFOztV87asZLzp9C0OGR ypCW3OEEmeZllFbIlpO78Eg c+MZXyqWhwz8XdYfdms0pwe 6pqkKs3 AoUjMWOoxkCmnVmiFIN3m5B dSf84C50uXYmpSXUeXXKdAO FvQAYptOctdr9zcA5tFf1+P GNvbCB3 yIQ8iY0dBNFbTtR7WKtkH24 6OsYnaAFaFnxyo5nyx2uehV g7QzOiQOKpbmDxlQebDIY3u 8CxIs67 G73iJReuQPGxRFKlSACcXGY kbApdsw5nyK5yYx2+PC9jb2 gqsi98cC05aDX+JLPyRLZ8e WxlPSdw NPXkfF0zKYipQgQ3QTMuXmU geI43qXJlYFtyDd6yaGoqhI taDR8hWHMknqbsh031KsNoy 2xkIDEw jSFzLOlrGIE1Z23qj9Q0XLZ xXRZyQWC3gBB4gS2akLjpwf ogbGVmdDsgdmVydGljYWwtY FbmB875 IHRvcDsnPlBhdGllbnQgTmF uNAh5R3UoIwv1VEAriQoiLL 2kaYEsJCvzRi0vtGihfUznL X3cZDIr cwftc192KvAfb3kgGNIgbEW jEEbeDFL0S05bo4J8FIMgLH UfLZB6qPR7mX5cgTyqybpwv GVmdDsg ogNfiBezMStzWYcuT987AFE dtUcaJwZrenPyIGXsnSR9QH 42IZ92eJUat8B5uIS8Q8QrC GRpbmct bptfnFV5ICAvAVXgcT22Wr9 olUniTq8nBARrPEM8UWGotF KaS1ZrcH8dTcDfXSPyKMUzZ 3RleHQt IMvbC324WJwrLgD0XZHhmkP uF5IcZFKncAbuCaO2d0W5Hs 3ZX4K4SQ84HT65wAEor1G9m RF1I4Py VJBoafadjjtibMH7UMQoNLJ suM17Au3btTknWc2uCNJgTN W2UXRptWQxH6FexF0iZkUcS DAwMDAw V6SsyVRaHVibS814PSqmYgZ 2CEUabvRbU6PrRPKbtRwjXn S9u3B2Qq8PUCj3SE84OM28t BCvy3M1 zYX5J8UtCGIzdqawdildeNZ 7AKPyPNNgaY17Ip8bcKjqMj 9jPFOuNVC3TQFmfYIyQ6Xka V0wChLi RAEaHCCcF5IuqSSzYUgxX44 9YEkrKhH3RRZraeCoG8CiQJ ZcrSrpHrD6f7J3Bt4ZKZYqB P67IQY2 mPD0OW30UE55H0RdHteslCD ibGU+PHRhYmxlIHdpZHRoPS zaBWBhCtGcaUajZC0yFc3sC GVyLWNv zZfguRBtHxNrg0esERNdNQm bQQ3acCbhN1ZtlXJ0DMNlk2 d9Au57F57tO2IavJZ+PGNvb PZ8rEX3 bO1eJoPmCyB5SFemX385CoY lnKVzFitzb8txu8ngqLx1Pf J2DYOtnlNhvXirVMO8y5JzU o31C76l IHdpZHRoPSIxNSUiIHZhbGl mlq0lgA1mUi6+OUMjbWW4gB B5pR9bEwCjJyU9JIaeB009R nRvcCIv Fruhm4rqz1wvjQf3DdXcEEV ohqRjmMslZAQ6y5KhRl75W5 KpkPjnd4HrVtw8ek00zWPrp 9A6hBC1 M0SaPNZmntaiiIWzzFoqRR8 vNWEvcrxeKVCkaT2sPFQiW8 z5GaSoVdA9DRmxE7PdgqW6P DEwcHQg EHjsEYL6Y85xi8S9CKPuRMV rPQC4fDG2mT3ugYaknekwxT VmdDsgdmVydGljYWwtYWxpZ 246IHRv rVdgXXDmmX6gBNDehDEseXn eQK3lVBRvsenwWhHAVnHlYY FOWwswTH5GGVKYTI43K0LwC aj0RWDc tRofNY7zfYYhGRabBz6hbLz shDfuYU6mSHBtyumkKUDumS 8qLXYqnXNucBzoSB7xKCXfo gqwg760 IrHwCVK1DNAbsAKpV3AloG9 tWtPkFCTaISGxE6DzwFHeVH kcF317QTnkLwN1EKHfrzHaB 2FsLWFs vYofJuN9w3C7Aq4qGK8vNV0 aXGPrKP00ID74dECnl1I9fC P8S8FiSAWinzynuzzobFU3W DAuMDUw fA29fFUsXOikUb3kx7T0l31 9LCIvTRXyiZ13Ub5pvKvkTX LvbFEHcJ4ikferm1hbyiivX zAwMDAw ZFw6KBb3MDWqsQyxOmPfACI 9HgR3YNZ3kJHgeZ5frOztsj lnjK1gVqu+LvZoRHFhdgE8M 6KeOzu3 SAGdxSasCP4ahBSaAYenDw6 fbVnbgYznGQ9jYJYchyjpTX MnoE5lMPLktETwnTjqTL3bV TBpbjtm p538XeKsYUY8LYAooEVsX2Q adG9pYqWmELAhMDZbP5ZtjJ TaTPgkX167QGybTuJ0AADhi lIcN7Ti BTWvwSvoQqV1k6S4Zp2IUF3 ycQF1V3OpQjz8DPYqpJjuUE 3zyCRfGIkpZm2xlHrlqUvmY P5kPPZg xboeCYZyyI9zGGZlhOFkoQk cVY8qRXFciceld563PdIhQR P5YZEigYJmZ5WyjN0vGzPkB DAwMDAw D3JtmCOwWPkjE535EKyzZcN 9MCSsavVvM9FnJBTdkWosVd A5y1L7Vr1FuZMyGACjUL89S A57XJ31 F2XmSfsjzVKqyJH+PHRhYmx lIHdpZHRoPScxMDAlJyBzdH wuXG0eJy0rXHPmLOErbKuzt HNlOiBj n6ahBYVwHNbhXI6fbQphK2G yhHL0IBSem5o9Mv12R38fW2 JvdXA+TDRlmIF3bFG5hA2kV zAlIiB2 PJvwT855NdCgbLQwFvxsr3e ri6ugfPh1DsWuJSTmxsIbeD zyULK8e8EoVp56A33sIQchA HRoPSIy SJXgUXVarXazyr7zgX9oMi4 +[id number] M4LIpaB154AtRwpCIjPekyA 75hI5Jx dXA+OYMhPzt3EDMnaEugGU0 wmXZuMSgwRy0qZNZ5NoZlAq UcMLlcX4KfOJEabftmnybqg OO7KVOb MJVpgO06Ov2mxRhfUy7dUUH iYHQ0JXDocKEmJ5HzeB0tAr KtRBOfKCEjH0LioHHzFFyfP 246IGxl QhE4JKWhayAbR5CrBRShmBy jOvI4i7L9Gg0GpVxdfPKgSW 7xShHcDZb1I1RhQok1YKJll YmxUG1y xWQjJHhnWi3rtKwbeMbgHN0 yMAMmsffkw344SoHob1wuBA UumVOvNSsvTBR0F08dy7L6F CMwMDAw IUR8cUX3nK5peUgnynzqiNO mdDsgdmVydGljYWwtYWxpZ2 66KUWddWgtDxGMGod6W9SvL xo1DDUi vPchJQ8pzDFwIAuhDl3eyCx knCwcFL3rTCEajwnll496Dl Ess1mhIHXuhHZlSExpQTH6T 52mi1H6 ODUiBMUrXMH5uTA6sT2hhHf nbjogbGVmdDsgdmVydGljYW acVCnuO678IYUcgVmyMl7FV ii5B0Qz Aez8LASwiMheZM0cdIOyRMk aFm2tsEqwiZezBG1mCCDhjm ebn422NbAnx7uwVNKibIPvC GltZXM7 A09ql8J4LSRoECUjOKJ8yUZ 3cN2urHxwgntgzYBeaXyjdb DwsGwlGShtRWzaT382YNNvc DsnPlBh eWVyOjwvdGQ+UC30dl77V1G iQfiyPfn9GCHmJRE2hEA5dV 0gDYAjWLfky2Y7pKT1V2Tgg oMvmt9y b2xs (more content not included)... [facility] Consent for Treatmenton 04-24 Consent for Treatment [id number]#1.00 CD:127 [facility] HIPAA Forms Officeon 022 HIPAA Forms Office [id number]#1.00C D:127 Normal [facility] Legal Correspondence Officeo n 05-19-2022 Legal Correspondence Office [id number]#1.00C D:127 Normal [facility] Office/Clinic Note-Physician on 05-19-2022 Office/Clinic Note-Physician [id number]#1.00C D:127 Normal [facility] Patient History Officeon Patient History Office [id number]#1.00C D:127 Normal [facility] Outside Records Officeon Outside Records Office [id number]#1.00 CD:127 Normal [facility] Radiology Outside Office Magazine Supervisor yon 05-12-2022 Radiology Outside Office Copy [id number]#1.00 CD:127 Normal [facility] Radiology Outside Office Copy [id number]#1.00 CD:127 Normal [facility] Referrals Officeon 2 Referrals Office [id number]#1.00 CD:127 Normal [facility] CT LSPINE WO CONon 2 CT LSPINE WO CON EXAMINATION: CT LSPI NE WO CON HISTORY: Lumbar radiculopathy , spondylosis, [...] by: WILVER HANNAH Date: 2022-05-04 08:[address] [facility] [address] PELVIS WO CONon 2 CT PELVIS WO CON EXAMINATION: CT PELV IS WO CON HISTORY: Lumbar radiculopathy COMPARISON: No [...] WILVER HANNAH Date: 2022-05-01 14:57 Normal [facility] OVA AND PARASITE EXAMINATION on 04-30-2022 O AND P Exam, Formalin Only Final report Normal [facility] Comment on above: Result Comment: Refe rence Range: None Seen No PVA preserved specimen received. For optimal O and P results we suggest the use of O and P kits containing both formalin and PVA. These kits are available from your director professional services. Performed By: #### P ANCEF #### [facility] [address] [place] [address] Dr. Fernanda Sanon Result 1 Comment Normal [facility] Comment on above: Result Comment: No o va, cysts, or parasites seen. . One negative specimen does not rule out the possibility of a parasitic infection. Performed By: #### P ANCEF #### [facility] [address] [place] [address] Dr. Fernanda Sanon CALPROTECTIN, FECALon 2021 Calprotectin, Fecal 83 ug/g Normal 0-120 [facility] Comment on above: Result Comment: Conc entration Interpretation Follow-Up <16 - 50 ug/g Normal None >50 -120 ug/g Borderline Re-evaluate in 4-6 weeks >120 ug/g Abnormal Repeat as clinically indicated Performed By: #### C ALPOO #### [facility] [address] [place] [address] Dr. Fernanda Sanon PANCREATIC ELASTASE FECALon 04-26-2022 Pancreatic Elastase, Fecal 415 ug Elast./g Normal >200 [facility] Comment on above: Result Comment: Shayna re Pancreatic Insufficiency: <100 Moderate Pancreatic Insufficiency: 100 - 200 Normal: >200 Performed By: #### P ANCEF #### [facility] [address] [place] [address] Dr. Fernanda Sanon GI PANEL (PCR)on 04-22-2022 Adenovirus F 40/41 Not detected Normal NOT DETECTED [facility] Comment on above: Performed By: #### G IPANEL #### [facility] [address] [place] [address] Dr. Fernanda Sanon Astrovirus Not detected Normal NOT DETECTED [facility] Comment on above: Performed By: #### G IPANEL #### [facility] [address] [place] [address] Dr. Fernanda Sanon C. Diff toxin A/B Not detected Normal NOT DETECTED [facility] Comment on above: Performed By: #### G IPANEL #### [facility] [address] [place] [address] Dr. Fernanda Sanon Campylobacter Not detected Normal NOT DETECTED [facility] Comment on above: Performed By: #### G IPANEL #### [facility] [address] [place] [address] Dr. Fernanda Sanon Cryptosporidium Not detected Normal NOT DETECTED The [facility] Comment on above: Performed By: #### G IPANEL #### [facility] [address] [place] [address] Dr. Fernanda Sanon Cyclos. Cayetanensis Not detected Normal NOT DETECTED [facility] Comment on above: Performed By: #### G IPANEL #### [facility] [address] [place] [address] Dr. Fernanda Sanon E. Coli O157 Not Applicable Normal Not Applicable [facility] Comment on above: Performed By: #### G IPANEL #### [facility] [address] [place] [address] Dr. Fernanda Sanon E. histolytica Not detected Normal NOT DETECTED [facility] Comment on above: Performed By: #### G IPANEL #### [facility] [address] [place] [address] Dr. Fernanda Sanon EAEC Not detected Normal NOT DETECTED [facility] Comment on above: Performed By: #### G IPANEL #### [facility] [address] [place] [address] Dr. Fernanda Sanon EIEC Not detected Normal NOT DETECTED [facility] Comment on above: Performed By: #### G IPANEL #### [facility] [address] [place] [address] Dr. Fernanda Sanon EPEC Not detected Normal NOT DETECTED [facility] Comment on above: Performed By: #### G IPANEL #### [facility] [address] [address] [address] Fernanda Sanon ETEC Not detected Normal NOT DETECTED [facility] Comment on above: Performed By: #### G IPANEL #### [facility] [address] [address] [address] Fernanda Humphrey Lamblia Not detected Normal NOT DETECTED [facility] Comment on above: Performed By: #### G IPANEL #### [facility] [address] [address] [address] Fernanda CHOU CONTROLS PASSED Normal [facility] Comment on above: Performed By: #### G IPANEL #### [facility] [address] [address] [address] Fernanda PIZARRO LADI HEADER GI PANEL BACTERIA Normal [facility] Comment on above: Performed By: #### G IPANEL #### [facility] [address] [place] [address] Dr. Fernanda SAUER ECOLI GI PANEL DIARRHEAGEN IC E.COLI / SHIGELLA Normal [facility] Comment on above: Performed By: #### G IPANEL #### [facility] [address] [place] [address] Dr. Fernanda SAUER INFO SEE BELOW Normal [facility] Comment on above: Result Comment: EAEC - Enteroaggregative E. Coli EPEC- Enteropathogenic E. Coli ETEC- Enterotoxigenic E. Coli lt/st STEC- Shigella-like toxin-producing E. Coli stx1/stx2 EIEC- Shigella/Enteroinvasive E. Coli Performed By: #### G IPANEL #### [facility] [address] [place] [address] Dr. Fernanda SAUER PARASITES GI PANEL PARASITES Normal [facility] Comment on above: Performed By: #### G IPANEL #### [facility] [address] [place] [address] Dr. Fernanda SAUER VIRUS GI PANEL VIRUSES Normal The [facility] Comment on above: Performed By: #### G IPANEL #### [facility] [address] [place] [address] Dr. Fernanda Sanon Norovirus GI/GII Not detected Normal NOT DETECTED [facility] Comment on above: Performed By: #### G IPANEL #### [facility] [address] [place] [address] Dr. Fernanda Sanon P. Shigelloides Not detected Normal NOT DETECTED The [facility] Comment on above: Performed By: #### G IPANEL #### [facility] [address] [place] [address] Dr. Fernanda Sanon Rotavirus A Not detected Normal NOT DETECTED [facility] Comment on above: Performed By: #### G IPANEL #### [facility] [address] [place] [address] Dr. Fernanda Sanon Salmonella Not detected Normal NOT DETECTED [facility] Comment on above: Performed By: #### G IPANEL #### [facility] [address] [place] [address] Dr. Fernanda Sanon Sapovirus Not detected Normal NOT DETECTED [facility] Comment on above: Performed By: #### G IPANEL #### [facility] [address] [place] [address] Dr. Fernanda Sanon STEC Not detected Normal NOT DETECTED [facility] Comment on above: Performed By: #### G IPANEL #### [facility] [address] [place] [address] Dr. Fernanda Sanon Vibrio Not detected Normal NOT DETECTED [facility] Comment on above: Performed By: #### G IPANEL #### [facility] [address] [place] [address] Dr. Fernanda Sanon Vibrio Cholera Not detected Normal NOT DETECTED [facility] Comment on above: Performed By: #### G IPANEL #### [facility] [address] [place] [address] Dr. Fernanda Sanon Y. Enterocolitica Not detected Normal NOT DETECTED [facility] Comment on above: Performed By: #### G IPANEL #### [facility] [address] [place] [address] Dr. Fernanda Sanon POINT OF CARE GLUCOSEon 11-0 Glucose [Mass/Vol] 81 mg/dL Normal 74-106 [facility] Comment on above: Performed By: #### P ANCEF #### [facility] [address] [address] [address] Fernanda Sanon XR FOOT BOWEN MIN 3 VIEWSon XR FOOT BOWEN MIN 3 VIEWS EXAMINATION: XR FOOT BOWEN MIN 3 VIEWS HISTORY: Pain in both [...] by: WILVER HANNAH Date: 2022-03-24 12:02 Normal [facility] GLYCOHEMOGLOBIN A1Con 2021 ADA RECOMMENDATION SEE BELOW Normal [facility] Comment on above: Result Comment: ADA RECOMMENDED LIMIT 4.0 - 6.0 ADA THERAPEUTIC TARGET < 7.0 ACTION SUGGESTED > 7.0 Performed By: #### P ANCEF #### [facility] [address] [address] [address] Fernanda Sanon Glucose [Mass/Vol] 148 mg/dL Normal [facility] Comment on above: Performed By: #### P ANCEF #### [facility] [address] [address] [address] Fernanda Sanon HbA1c (Bld) [Mass fraction] 6.8 % Critically high 4.5-6.2 [facility] Comment on above: Performed By: #### P ANCEF #### [facility] [address] [address] [address] Fernanda Sanon LIPID PROFILEon 03-10-2022 CHOL-HDL RATIO NORM SEE BELOW Normal [facility] Comment on above: Result Comment: 3.3 - 4.4 LOW RISK 4.4 - 7.1 AVERAGE RISK 7.1 - 11.0 MODERATE RISK >11.0 HIGH RISK Performed By: #### L IPID, TSH, BMP #### [facility] [address] [address] [address] Fenranda Sanon Cholesterol [Mass/Vol] 141 mg/dL Normal <=200 [facility] Comment on above: Performed By: #### L IPID, TSH, BMP #### [facility] [address] [address] [address] Fernanda Sanon Cholesterol in HDL [Mass/Vol] 74 mg/dL Critically high 40-60 [facility] Comment on above: Performed By: #### L IPID, TSH, BMP #### [facility] [address] [address] [address] Fernanda Sanon Cholesterol in LDL [Mass/Vol] 57.6 mg/dL Normal [facility] Comment on above: Performed By: #### L IPID, TSH, BMP #### [facility] [address] [address] [address] Fernanda Sanon Cholesterol.total/C holesterol in HDL [Mass ratio] 1.9 {ratio} Normal [facility] Comment on above: Performed By: #### L IPID, TSH, BMP #### [facility] [address] [address] [address] Fernanda Sanon HDL NORMAL > or = 60 mg/dl - LO W CARDIOVASCULAR RISK <40 mg/dl - HIGH CARDIOVASCULAR RISK Normal [facility] Comment on above: Performed By: #### L IPID, TSH, BMP #### [facility] [address] [address] [address] Fernanda Sanon LDL CALC NORMAL SEE BELOW Normal [facility] Comment on above: Result Comment: <100 mg/dl OPTIMAL 100 - 129 mg/dl NEAR OR ABOVE OPTIMAL 130 - 159 mg/dl BORDERLINE HIGH 160 - 189 mg/dl HIGH >190 mg/dl VERY HIGH Performed By: #### L IPID, TSH, BMP #### [facility] [address] [address] [address] Fernanda Sanon Triglyceride [Mass/Vol] 47 mg/dL Normal <=150 [facility] Comment on above: Performed By: #### L IPID, TSH, BMP #### [facility] [address] [address] [address] Fernanda Sanon VLDL CALC 9.4 mg/dL Normal [facility] Comment on above: Performed By: #### L IPID, TSH, BMP #### [facility] [address] [address] [address] Fernanda Sanon MICROALBUMIN, RAND URon 10-1 mALB 1.3 mg/L Normal <=30.0 [facility] Comment on above: Performed By: #### M ALBR #### [facility] [address] [address] [address] Fernanda Sanon PROF CHEM 8 (BAS METB)on Anion gap [Moles/Vol] 12.6 mmol/L Normal [facility] Comment on above: Performed By: #### L IPID, TSH, BMP #### [facility] [address] [address] [address] Fernanda Sanon Calcium [Mass/Vol] 9.7 mg/dL Normal 8.5-10.1 [facility] Comment on above: Performed By: #### L IPID, TSH, BMP #### [facility] [address] [address] [address] Fernanda Sanon Chloride [Moles/Vol] 104 mmol/L Normal 98-107 [facility] Comment on above: Performed By: #### L IPID, TSH, BMP #### [facility] [address] [address] [address] Fernanda Sanon CO2 [Moles/Vol] 29.2 mmol/L Normal 21.0-32.0 [facility] Comment on above: Performed By: #### L IPID, TSH, BMP #### [facility] [address] [address] [address] Fernanda Sanon Creatinine [Mass/Vol] 1.20 mg/dL Critically high 0.55-1.02 [facility] Comment on above: Performed By: #### L IPID, TSH, BMP #### [facility] [address] [place] [address] Dr. Fernanda Sanon EGFR-AF EQUATORIAL GUINEAN 54 mL/min/1.73m2 Critically low >=60 [facility] Comment on above: Performed By: #### L IPID, TSH, BMP #### [facility] [address] [place] [address] Dr. Fernanda Sanon EGFR-NON AF EQUATORIAL GUINEAN 44 mL/min/1.73m2 Critically low >=60 [facility] Comment on above: Performed By: #### L IPID, TSH, BMP #### [facility] [address] [place] [address] Dr. Fernanda Sanon Glucose [Mass/Vol] 122 mg/dL Critically high 74-106 [facility] Comment on above: Performed By: #### L IPID, TSH, BMP #### [facility] [address] [place] [address] Dr. Fernanda Sanon Potassium [Moles/Vol] 4.8 mmol/L Normal 3.5-5.1 [facility] Comment on above: Performed By: #### L IPID, TSH, BMP #### [facility] [address] [place] [address] Dr. Fernanda Sanon Sodium [Moles/Vol] 141 mmol/L Normal 136-145 [facility] Comment on above: Performed By: #### L IPID, TSH, BMP #### [facility] [address] [place] [address] Dr. Fernanda Sanon Urea nitrogen [Mass/Vol] 39.0 mg/dL Critically high 7.0-18.0 [facility] Comment on above: Performed By: #### L IPID, TSH, BMP #### [facility] [address] [place] [address] Dr. Fernanda Sanon Urea nitrogen/Creatinine [Mass ratio] 32.5 mg/mg Normal [facility] Comment on above: Performed By: #### L IPID, TSH, BMP #### [facility] [address] [address] [address] Fernanda Sanon TSHon 03-10-2022 TSH 2.050 uIU/mL Normal 0.358-3.740 [facility] Comment on above: Performed By: #### L IPID, TSH, BMP #### [facility] [address] [place], [place] [address] Dr. Fernanda Sanon POINT OF CARE GLUCOSEon 02-21 Glucose [Mass/Vol] 124 mg/dL Critically high 74-106 [facility] Comment on above: Performed By: #### P ANCEF #### [facility] [address] [address] [address] Fernanda Sanon Urinalysis with Microscopico n 01-20-2022 Bilirubin Urine Negative NEGATIVE [facility] [employer] Color, UA Yellow Yellow [facility] Epithelial Cells UA 0 TO 2 [facility] Glucose, Ur Negative NEGATIVE [facility] Interpretation and review of laboratory results Abnormal [facility] Ketones Ql (U) TRACE Abnormal NEGATIVE [facility] Leukocyte esterase Test strip Ql (U) Negative NEGATIVE [facility] Mucus, UA 1+ Abnormal None [facility] Nitrite, Urine Negative NEGATIVE [facility] pH, UA 6.0 5 - 9 [facility] Protein, UA Negative NEGATIVE [facility] RBC, UA 0 TO 2 [facility] Specific [place], UA High 1.01 - 1.02 [facility] Turbidity UA Clear Clear [facility] Urine Hgb Negative NEGATIVE [facility] Urobilinogen, Urine Normal Normal [facility] WBC, UA 0 TO 2 [facility] MG MAMM SCREEN 3D BOWEN CADon 12-25-2021 MG MAMM SCREEN 3D BOWEN CAD Patient: ASHLEE BANERJEE Exam Date: 12/25/2021 : 1950 Gender:F Ordering : DR DESTINEE COUGHLIN [facility] Admission #: [id number] Family : Order #: [id number] CLICK HERE TO VIEW EXAM RADIOLOGY REPORT PROCEDURE: MAMMOGRAM SCREENING 3D BILATERAL CAD COMPARISON: MG MAMM SCREEN 3D BOWEN CAD, 12/23/2020. MG MAMM SCREEN BOWEN W CAD, 12/19/2019. INDICATIONS: Screening mammography Calculator Name NCI Breast Cancer Risk Assessment Tool 5 Year Breast Cancer Risk 2.90% Lifetime Breast Cancer Risk 7.50% Personal Breast Cancer No Personal Ovarian Cancer No Treatments None Family Cancers Sister with thyroid cancer at age 63. LOCATION: [facility] BREAST COMPOSITION: Heterogeneously dense,which may obscure [...] Barbosa M.D. on 12/26/2021 at 11:11 Normal [facility] Urinalysis with Microscopico n 11-18-2021 - [employer] [facility] Bacteria, UA 2+ Abnormal None [facility] Bilirubin Urine Negative NEGATIVE [employer] [facility] [employer] Color, UA Yellow Yellow [employer] [facility] Epithelial Cells UA 2 TO 5 [facility] Glucose, Ur Negative NEGATIVE [facility] Interpretation and review of laboratory results Abnormal [facility] Ketones Ql (U) TRACE Abnormal NEGATIVE [employer] [facility] Leukocyte esterase Test strip Ql (U) Negative NEGATIVE [employer] [facility] Mucus, UA 2+ Abnormal None [facility] Nitrite, Urine Negative NEGATIVE [employer] [facility] pH, UA 5.5 [employer] [facility] Protein, UA TRACE Abnormal NEGATIVE [place] [facility] RBC, UA 0 TO 2 [employer] [facility] Specific [place], UA >1.030 High [employer] [facility] Turbidity UA Clear Clear [employer] [facility] Urine Hgb Negative NEGATIVE [employer] [place] [facility] Urobilinogen, Urine Normal Normal [facility] WBC, UA 0 TO 2 [facility] [employer] [facility] POINT OF CARE GLUCOSEon 05-2 4-2022 Glucose [Mass/Vol] 105 mg/dL Normal 74-106 [facility] Comment on above: Performed By: #### P ANCEF #### [facility] [address] [address] [address] Fernanda Sanon Basic Metabolic Panelon Anion gap [Moles/Vol] 10 mmol/L 9 - 17 mmol/L [facility] Calcium [Mass/Vol] 10.2 mg/dL 8.6 - 10. 4 mg/dL [facility] Chloride [Moles/Vol] 105 mmol/L 98 - 107 mmol/L [facility] CO2 [Moles/Vol] 26 mmol/L 20 - 31 mmol/L [facility] Creatinine [Mass/Vol] 1.01 mg/dL High 0.50 - 0.90 mg/dL [facility] GFR >60 >60 mL/min [facility] GFR Non- 54 mL/min Low >60 [facility] Glucose [Mass/Vol] 102 mg/dL High 70 - 99 mg/dL [facility] Interpretation and review of laboratory results Abnormal [facility] Potassium [Moles/Vol] 4.1 mmol/L 3.7 - 5.3 mmol/L [facility] Sodium [Moles/Vol] 141 mmol/L 135 - 144 mmol/L [facility] Urea nitrogen (BldV) [Mass/Vol] 32 mg/dL High 8 - 23 mg/dL [facility] Urea nitrogen/Creatinine (Bld) [Mass ratio] 32 High [facility] CBC Auto Differentialon Absolute Eos # 0.26 [facility] th Absolute Immature Granulocyte <0.03 [facility] Absolute Lymph # 1.09 Low [facility] He alth Absolute [facility] Basophils (Bld) [#/Vol] 0.05 10*3/uL [facility] Basophils/100 WBC (Bld) 1 % 0 - 2 % [facility] Eosinophils/100 WBC (Bld) 4 % 1 - 4 % [facility] Hematocrit (Bld) [Volume fraction] 40.2 % 36.3 - 47.1 % [facility] Hemoglobin.gastroin testinal spec 1 Ql (Stl) 12.3 g/dL 11.9 - 15.1 g/dL [facility] Immature granulocytes/100 WBC (Bld) 0 % 0 [facility] Interpretation and review of laboratory results Abnormal [facility] Lymphocytes/100 WBC (Bld) 18 % Low 24 - 43 % [facility] MCH (RBC) [Entitic mass] 29.4 pg 25.2 - 33.5 pg [facility] MCHC (RBC) [Mass/Vol] 30.6 g/dL 28.4 - 34.8 g/dL [facility] MCV (RBC) [Entitic vol] 95.9 fL 82.6 - 102.9 fL [facility] Monocytes/100 WBC (Bld) 9 % 3 - 12 % [facility] NRBC Automated 0.0 0.0 per 100 WBC [facility] Platelet distribution width (Bld) [Ratio] 12.5 % 11.8 - 14.4 % [facility] Platelets (Bld) [#/Vol] See Reflexed IPF Result [facility] alth RBC (Bld) [#/Vol] 4.19 10*6/uL 3.95 - 5.1 1 m/uL [facility] Segmented neutrophils/100 WBC (Bld) 69 % High 36 - 65 % [facility] Segs Absolute 4.26 [facility] [#/Vol] 6.2 10*3/uL [facility] EKG 12 LeadOrdered By: Lamberto Wilson on 07-23-2021 Atrial Rate 69 BPM [facility] Work Phone: P Balfour 64 degrees [facility] Work Phone: P-R Interval 130 ms [facility] Work Phone: Q-T Interval 366 ms [facility] Work Phone: QRS Duration 82 ms [facility] Work Phone: QTc Calculation (Milena) 392 ms [facility] Work Phone: R Balfour 27 degrees [facility] Work Phone: T Balfour 34 degrees [facility] Work Phone: Ventricular Rate 69 BPM [facility] Work Phone: [facility] Work Phone: EKG 12 Leadon 07-23-2021 Normal sinus rhythm Possible Left atrial enlargement Borderline ECG When compared with ECG of 16-MAR-2016 09:54, No significant change was found Confirmed by MONI WILSON ([id number]) on 07/23/2021 1:56:02 PM [facility] Moni Wilson MD - 07/23/2021 Normal sinus rhythm Possible Left atrial enlargement Borderline ECG When compared with ECG of 16-MAR-2016 09:54, No significant change was found Confirmed by MONI WILSON ([id number]) on 07/23/2021 1:56:02 PM [facility] Work Phone: Immature Platelet Fractionon 07-23-2021 Interpretation and review of laboratory results Abnormal [facility] Platelet, Fluorescence 133 Low [facility] Platelet, Immature Fraction 3.7 % 1.1 - 10.3 % [facility] Laboratory - Chemistry and C hemistry - challengeon 07-23-2021 GFR/1.73 sq M.predicted MDRD (S/P/Bld) [Vol rate/Area] [facility] Comment on above: Average GFR for 70 o r more years old: 75 mL/min/1.73sq m Chronic Kidney Disease: <60 mL/min/1.73sq m Kidney failure: <15 mL/min/1.73sq m eGFR calculated using average adult body mass. Additional eGFR calculator available at: http://[email or web address]_crcl_2012.htm Stage 1: Some kidney damage normal GFR Stage 2: Mild kidney damage GFR 60-89 Stage 3: Moderate kidney damage GFR 30-59 Stage 4: Severe kidney damage GFR 15-29 Stage 5: Severe kidney damage GFR <15 ESRD - chronic treatment by dialysis or transplant Urinalysis With Microscopico n 2019 Amorphous, UA NOT REPORTED None [facility] [place] [place] Bacteria, UA NOT REPORTED None [facility] Bilirubin Urine Negative NEGATIVE [facility] [place] Casts UA NOT REPORTED /LPF [facility] [place] Color, UA YELLOW YELLOW [facility] [place] Crystals, UA NOT REPORTED None /HPF [place] Epithelial Cells UA 0 TO 2 [place], [place] Glucose, Ur Negative NEGATIVE [place] Interpretation and review of laboratory results Abnormal [place] Ketones Ql (U) TRACE Abnormal NEGATIVE [place] Leukocyte esterase Test strip Ql (U) MODERATE Abnormal NEGATIVE [place] Mucus, UA NOT REPORTED None [place], [place] Nitrite, Urine Negative NEGATIVE [place] Other Observations UA NOT REPORTED NOT REQ. [place] pH, UA 5.5 [place] Protein (U) [Mass/Vol] Negative NEGATIVE [place] RBC (U) [#/Vol] 0 TO 2 [facility] [place] Renal Epithelial, UA NOT REPORTED 0 /HPF [place] Specific [place], UA >1.030 High [place] Trichomonas, UA NOT REPORTED None [facility] [place] Turbidity UA CLEAR CLEAR [place] Urinalysis Comments NOT REPORTED [place] Urine Hgb Negative NEGATIVE [place] Urobilinogen, Urine Normal Normal [place] WBC, UA 5 TO 10 [place] Yeast, UA NOT REPORTED None [place] - [place] Otheron 02-24-2019 Unremarkable bowel-g as pattern. Indeterminate right upper quadrant calcification most likely reflects cholelithiasis, as seen on prior CT. Possible calculus versus vascular calcification overlying the left renal shadow. No stone at this level on CT 1 year ago. [place], [place] EXAMINATION: ONE SUP INE XRAY VIEW(S) OF THE ABDOMEN 02/24/2019 2:30 [...] wing, lead overlying the inferior right sacrum. [place], [place] Souleymane, Mhpn Incoming Radiant Results From [facility]acs - 02/24/2019 3:08 PM EDT EXAMINATION: ONE [...] this level on CT 1 year ago. [place] Urinalysis with Microscopico n 01-06-2019 Amorphous, UA NOT REPORTED None [place] Bacteria, UA NOT REPORTED None [place] Bilirubin Urine Negative NEGATIVE [place] Casts UA NOT REPORTED /LPF [place] Color, UA YELLOW YELLOW [place] Crystals UA NOT REPORTED None /HPF [place] Epithelial Cells UA 0 TO 2 [place] Glucose, Ur Negative NEGATIVE [place] Interpretation and review of laboratory results Abnormal [place] Ketones Ql (U) Negative NEGATIVE [place] Leukocyte esterase Test strip Ql (U) SMALL Abnormal NEGATIVE [place] Mucus, UA NOT REPORTED None [place] Nitrite, Urine Negative NEGATIVE [place] Other Observations UA NOT REPORTED NOT REQ. [place] pH, UA 5.5 [place] Protein (U) [Mass/Vol] Negative NEGATIVE [place] RBC (U) [#/Vol] 0 TO 2 [facility] Renal Epithelial, Urine NOT REPORTED 0 /HPF [facility], [place] Specific [place], UA 1.020 [facility], [place] Trichomonas, UA NOT REPORTED None [facility] [place], [place] Turbidity UA CLEAR CLEAR [facility], [place] Urinalysis Comments NOT REPORTED [facility]- [place], [place] Urine Hgb Negative NEGATIVE [facility], [place] Urobilinogen, Urine Normal Normal [facility], [place] WBC, UA 2 TO 5 [facility], [place] Yeast, UA NOT REPORTED None [facility], [place] - [facility], [place] Vital Signs Date Time Vital Sign Value Performing Clinician Facility 10-03-2024 12:00-0400 Body temperature 98.8 [degF] Juice Melendez MD Work Phone: [facility] 10-03-2024 12:00-0400 Heart rate 74 /min Juice Melendez MD Work Phone: [facility] 10-03-2024 12:00-0400 Respiratory rate 21 /min Juice Melendez MD Work Phone: [facility] 10-03-2024 11:35-0400 Diastolic blood pressure 78 mm[Hg] Juice Melendez MD Work Phone: [facility] 10-03-2024 11:35-0400 Systolic blood pressure 164 mm[Hg] Juice Melendez MD Work Phone: [facility] 10-03-2024 06:00-0400 Body mass index (BMI) [Ratio] 30.23 kg/m2 Juice Melendez MD Work Phone: [facility] 10-03-2024 06:00-0400 Body weight 72.58 kg Juice Melendez MD Work Phone: [facility] 10-02-2024 15:15-0400 SaO2% (BldA) [Mass fraction] 100 % Juice Melendez MD Work Phone: [facility] 09-29-2024 18:00-0400 Heart rate 76 /min Cooper Eller MD [facility] 09-29-2024 18:00-0400 Respiratory rate 19 /min Cooper Eller MD Work Phone: [facility] 09-29-2024 18:00-0400 SaO2% (BldA) [Mass fraction] 98 % Cooper Eller MD Work Phone: [facility] 09-29-2024 17:30-0400 Diastolic blood pressure 44 mm[Hg] Cooper Eller MD Work Phone: [facility] 09-29-2024 17:30-0400 Systolic blood pressure 104 mm[Hg] Cooper Eller MD Work Phone: [facility] 09-29-2024 15:45-0400 Body temperature 100 [degF] Cooper Eller MD Work Phone: [facility] 09-29-2024 07:01-0400 Body height 154.9 cm Cooper Eller MD Work Phone: [facility] 09-29-2024 03:31-0400 Body mass index (BMI) [Ratio] 29.3 kg/m2 Cooper Eller MD Work Phone: [facility] 09-29-2024 03:31-0400 Body weight 70.3 kg Cooper Eller MD Work Phone: [facility] 09-20-2024 14:30-0400 Diastolic blood pressure 64 mm[Hg] Rylie Whipple II, MD Work Phone: [facility] 09-20-2024 14:30-0400 Heart rate 82 /min Rylie Whipple II, MD Work Phone: [facility] 09-20-2024 14:30-0400 SaO2% (BldA) [Mass fraction] 97 % Rylie Whipple II, MD Work Phone: [facility] 09-20-2024 14:30-0400 Systolic blood pressure 142 mm[Hg] Rylie Whipple II, MD Work Phone: [facility] 09-20-2024 13:00-0400 Respiratory rate 16 /min Rylie Whipple II, MD Work Phone: [facility] 11-29-2023 13:17-0400 Body height 154.9 cm Lakisha Cordoba MD Work Phone: [facility] 11-29-2023 13:17-0400 Body mass index (BMI) [Ratio] 26.07 kg/m2 Lakisha Cordoba MD Work Phone: [facility] 11-29-2023 13:17-0400 Body temperature 98.4 [degF] Lakisha Cordoba MD Work Phone: [facility] 11-29-2023 13:17-0400 Body weight 62.6 kg Lakisha Cordoba MD Work Phone: [facility] 11-29-2023 13:17-0400 Diastolic blood pressure 62 mm[Hg] Lakisha Cordoba MD Work Phone: [facility] 11-29-2023 13:17-0400 Heart rate 76 /min Lakisha Cordoba MD Work Phone: [facility] 11-29-2023 13:17-0400 SaO2% (BldA) [Mass fraction] 99 % Lakisha Cordoba MD Work Phone: [facility] 11-29-2023 13:17-0400 Systolic blood pressure 132 mm[Hg] Lakisha Cordoba MD Work Phone: [facility] 03-23-2023 19:08-0400 Heart rate 77 /min Dee Mireles APRN-SHEILA Work Phone: [facility] 03-23-2023 10:41-0400 Body height 154.9 cm Dee Mireles SAND CLEANING MACHINE OPERATOR-SKID WORKER Work Phone: [employer] 03-23-2023 10:41-0400 Body mass index (BMI) [Ratio] 30.04 kg/m2 Dee Mireles SAND CLEANING MACHINE OPERATOR-SKID WORKER Work Phone: [employer] 03-23-2023 10:41-0400 Body temperature 98.01 [degF] Dee Mireles SAND CLEANING MACHINE OPERATOR-SKID WORKER Work Phone: [employer] 03-23-2023 10:41-0400 Body weight 72.12 kg Dee Mireles SAND CLEANING MACHINE OPERATOR-SKID WORKER Work Phone: [employer] 03-23-2023 10:41-0400 Diastolic blood pressure 67 mm[Hg] Dee Mireles SAND CLEANING MACHINE OPERATOR-SKID WORKER Work Phone: [employer] 03-23-2023 10:41-0400 Heart rate 79 /min Dee Mireles SAND CLEANING MACHINE OPERATOR-SKID WORKER Work Phone: [employer] 03-23-2023 10:41-0400 Respiratory rate 12 /min Dee Mireles SAND CLEANING MACHINE OPERATOR-SKID WORKER Work Phone: [employer] 03-23-2023 10:41-0400 SaO2% (BldA) [Mass fraction] 100 % Dee Mireles SAND CLEANING MACHINE OPERATOR-SKID WORKER [facility] 03-23-2023 10:41-0400 Systolic blood pressure 123 mm[Hg] Dee Mireles SAND CLEANING MACHINE OPERATOR-SKID WORKER Work Phone: [facility] 11-10-2022 09:57-0400 Diastolic blood pressure 72 mm[Hg] Gerry Rosalino [facility] 11-10-2022 09:57-0400 Heart rate 68 /min Gerry Rosalino [facility] 11-10-2022 09:57-0400 Mean blood pressure 98 mm[Hg] Gerry Rosalino [facility] 11-10-2022 09:57-0400 Respiratory rate 16 /min Gerry Jerry [facility] 11-10-2022 09:57-0400 Systolic blood pressure 150 mm[Hg] Gerry Jerry [facility] 06-16-2022 13:42-0500 Diastolic blood pressure 75 mm[Hg] Janie Henning [facility] 06-16-2022 13:42-0500 Heart rate 65 /min Janie Henning [facility] 06-16-2022 13:42-0500 Mean blood pressure 97 mm[Hg] Janie Henning [facility] 06-16-2022 13:42-0500 Respiratory rate 18 /min Janie Henning [facility] 06-16-2022 13:42-0500 Systolic blood pressure 140 mm[Hg] Janie Henning [facility] 05-19-2022 12:15-0500 Diastolic blood pressure 82 mm[Hg] Geri Vergara [facility] 05-19-2022 12:15-0500 Heart rate 62 /min Geri Vergara [facility] 05-19-2022 12:15-0500 Mean blood pressure 95 mm[Hg] Geri Vergara [facility] 05-19-2022 12:15-0500 Respiratory rate 18 /min Geri Vergara [facility] 05-19-2022 12:15-0500 Systolic blood pressure 120 mm[Hg] Geri Vergara [facility] 08-05-2021 16:30-0400 Diastolic blood pressure 76 mm[Hg] Mj Alvarenga MD Work Phone: [facility] 08-05-2021 16:30-0400 Heart rate 71 /min Mj Alvarenga MD Work Phone: [facility] 08-05-2021 16:30-0400 Respiratory rate 18 /min Mj Alvarenga MD Work Phone: [facility] 08-05-2021 16:30-0400 SaO2% (BldA) [Mass fraction] 98 % Mj Alvarenga MD Work Phone: [facility] 08-05-2021 16:30-0400 Systolic blood pressure 148 mm[Hg] Mj Alvarenga MD Work Phone: [facility] 08-05-2021 15:50-0400 Body temperature 98.1 [degF] Mj Alvarenga MD Work Phone: [facility] 08-05-2021 12:44-0400 Body height 154.9 cm Mj Alvarenga MD Work Phone: [facility] 08-05-2021 12:44-0400 Body mass index (BMI) [Ratio] 30.12 kg/m2 Mj Alvarenga MD Work Phone: [facility] 08-05-2021 12:44-0400 Body weight 72.3 kg Mj Alvarenga MD Work Phone: [facility] 07-23-2021 09:04-0500 Body height 154.9 cm Mj Alvarenga MD Work Phone: [facility] 07-23-2021 09:04-0500 Body mass index (BMI) [Ratio] 30.89 kg/m2 Mj Alvarenga MD Work Phone: [facility] 07-23-2021 09:04-0500 Body temperature 97.11 [degF] Mj Alvarenga MD Work Phone: [facility] 07-23-2021 09:04-0500 Body weight 74.16 kg Mj Alvarenga MD Work Phone: [facility] 07-23-2021 09:04-0500 Diastolic blood pressure 73 mm[Hg] Mj Alvarenga MD Work Phone: [facility] 07-23-2021 09:04-0500 Heart rate 77 /min Mj Alvarenga MD Work Phone: [facility] 07-23-2021 09:04-0500 Respiratory rate 20 /min Mj Alvarenga MD Work Phone: [facility] 07-23-2021 09:04-0500 SaO2% (BldA) [Mass fraction] 99 % Mj Alvarenga MD Work Phone: [facility] 07-23-2021 09:04-0500 Systolic blood pressure 151 mm[Hg] Mj Alvarenga MD Work Phone: [facility] 04-10-2020 16:39-0500 BMI (Body Mass Index) 33.25 kg/m2 [employer] 04-10-2020 16:39-0500 Body weight 79.83 kg [employer] 04-10-2020 16:39-0500 BP Diastolic 76 mm[Hg] [employer] 04-10-2020 16:39-0500 BP Systolic 130 mm[Hg] [employer] 04-10-2020 16:39-0500 BSA (Body Surface Area) 1.85 m2 [employer] 04-10-2020 16:39-0500 Height 154.94 cm [employer] 04-10-2020 16:39-0500 Pulse (Heart Rate) 88 /min [employer] [facility] 01-09-2020 16:05-0400 BMI (Body Mass Index) 33.82 kg/m2 Vladimir [employer] 01-09-2020 16:05-0400 Body Temperature 98.4 [degF] Vladimir [employer] 01-09-2020 16:05-0400 Body weight 81.19 kg Vladimir ArshadNoteWagonncmDialog [employer] 01-09-2020 16:05-0400 BP Diastolic 62 mm[Hg] Vladimir [employer] 01-09-2020 16:05-0400 BP Systolic 114 mm[Hg] Vladimir [employer] 01-09-2020 16:05-0400 BSA (Body Surface Area) 1.87 m2 Vladimir [employer] 01-09-2020 16:05-0400 Height 154.94 cm Vladimir [employer] 01-09-2020 16:05-0400 Pulse (Heart Rate) 76 /min Vladimir [employer]omara Martínezhard Dee Dee polo [employer] 07-11-2019 16:08-0500 BMI (Body Mass Index) 35.01 kg/m2 Vladimir [employer] 07-11-2019 16:08-0500 Body Temperature 98.7 [degF] Vladimir Thinknumkatherine MartínezAlemanLove[employer] 07-11-2019 16:08-0500 Body weight 84.06 kg Vladimir [employer] 07-11-2019 16:08-0500 BP Diastolic 72 mm[Hg] [employer] 07-11-2019 16:08-0500 BP Systolic 126 mm[Hg] Vladimir [employer] [facility] 07-11-2019 16:08-0500 BSA (Body Surface Area) 1.9 m2 Vladimir Aleman [employer] 07-11-2019 16:08-0500 Height 154.94 cm Vladimir Aleman [email or web address] 07-11-2019 16:08-0500 Pulse (Heart Rate) 72 /min Vladimir Funez [employer] 11-29-2018 18:22-0400 BMI (Body Mass Index) 34.39 kg/m2 Vladimir Martí[employer]Mark[employer] 11-29-2018 18:22-0400 Body Temperature 97.9 [degF] Vladimir Aleman [employer] 11-29-2018 18:22-0400 Body weight 82.56 kg Vladimir Martínez[employer]Markets 11-29-2018 18:22-0400 BP Diastolic 70 mm[Hg] Vladimir ArshadJ&J Solutionskatherine MartínezAlemanThe[employer]ets 11-29-2018 18:22-0400 BP Systolic 140 mm[Hg] Vladimir [employer] 11-29-2018 18:22-0400 BSA (Body Surface Area) 1.88 m2 Vladimir Aleman [email or web address] 11-29-2018 18:22-0400 BSA (Body Surface Area) 1.89 m2 Vladimir ArshadJ&J Solutionskatherine MartínezAlemanTheMarkets 11-29-2018 18:22-0400 Height 154.94 cm Vladimir Martí[employer] 11-29-2018 18:22-0400 Pulse (Heart Rate) 80 /min Vladimir Funez [employer] 05-31-2018 17:44-0500 BMI (Body Mass Index) 32.94 kg/m2 Vladimir Mart[employer] 05-31-2018 17:44-0500 Body Temperature 98.2 [degF] Vladimir MartínezRealm 05-31-2018 17:44-0500 Body weight 79.07 kg Vladimir Greco [employer] 05-31-2018 17:44-0500 BP Diastolic 68 mm[Hg] Vladimir Donay 05-31-2018 17:44-0500 BP Systolic 118 mm[Hg] Vladimir Donay 05-31-2018 17:44-0500 BSA (Body Surface Area) 1.84 m2 Vladimir QThruncThe[employer]ets 05-31-2018 17:44-0500 Height 154.94 cm Vladimir QThruncTheMarkets 05-31-2018 17:44-0500 Pulse (Heart Rate) 80 /min Vladimir sanchezRed Balloon Security 02-01-2018 17:15-0400 BMI (Body Mass Index) 32.31 kg/m2 Vladimir QThrunc[employer] 02-01-2018 17:15-0400 Body Temperature 98.5 [degF] Vladimir Newst[employer] AlemanRealm 02-01-2018 17:15-0400 Body weight 77.57 kg Vladimir Donay 02-01-2018 17:15-0400 BP Diastolic 88 mm[Hg] [employer] 02-01-2018 17:15-0400 BP Systolic 134 mm[Hg] Vladimir [employer] 02-01-2018 17:15-0400 BSA (Body Surface Area) 1.83 m2 Vladimir [employer] 02-01-2018 17:15-0400 Height 154.94 cm [employer] 02-01-2018 17:15-0400 Pulse (Heart Rate) 76 /min Vladimir Newstag AlemanData [employer] 07-28-2017 17:14-0500 BMI (Body Mass Index) 32.31 kg/m2 [employer] 07-28-2017 17:14-0500 Body Temperature 99.2 [degF] [employer] 07-28-2017 17:14-0500 Body weight 77.57 kg [employer] 07-28-2017 17:14-0500 BP Diastolic 78 mm[Hg] [employer] 07-28-2017 17:14-0500 BP Systolic 128 mm[Hg] [employer] 07-28-2017 17:14-0500 BSA (Body Surface Area) 1.83 m2 [employer] 07-28-2017 17:14-0500 Height 154.94 cm [employer] 07-28-2017 17:14-0500 Pulse (Heart Rate) 68 /min [employer] 11-11-2016 18:39-0400 BMI (Body Mass Index) 34.11 kg/m2 [employer] 11-11-2016 18:39-0400 Body Temperature 98.1 [degF] Vladimir Phillips [employer] 11-11-2016 18:39-0400 Body weight 82.56 kg Vladimir Aleman [email or web address] 11-11-2016 18:39-0400 BP Diastolic 70 mm[Hg] Vladimir Aleman [email or web address] 11-11-2016 18:39-0400 BP Systolic 138 mm[Hg] Vladimir Aleman [email or web address] 11-11-2016 18:39-0400 BSA (Body Surface Area) 1.89 m2 Vladimir Aleman [email or web address] 11-11-2016 18:39-0400 Height 155.57 cm Vladimir Aleman [email or web address] 11-11-2016 18:39-0400 Pulse (Heart Rate) 88 /min Vladimir sanchezRed Balloon Security 05-13-2016 18:05-0500 BMI (Body Mass Index) 34.48 kg/m2 Vladimir Aleman [email or web address] 05-13-2016 18:05-0500 Body Temperature 98.4 [degF] Vladimir Phillips [employer] 05-13-2016 18:05-0500 Body weight 83.46 kg Vladimir Martínez[employer]Markets 05-13-2016 18:05-0500 BP Diastolic 64 mm[Hg] Vladimir Aleman [email or web address] 05-13-2016 18:05-0500 BP Systolic 118 mm[Hg] Vladimir Greco Aleman [email or web address] 05-13-2016 18:05-0500 BSA (Body Surface Area) 1.9 m2 Vladimir Martínez[employer] 05-13-2016 18:050500 Height 155.57 cm Vladimir Martínez[employer]Markets 05-13-2016 18:05-0500 Pulse (Heart Rate) 92 /min Vladimir Funez [employer] 08-13-2015 18:22-0400 BMI (Body Mass Index) 33.45 kg/m2 Vladimir Newstag AlemanTheMarkets 08-13-2015 18:22-0400 Body Temperature 98 [degF] Vladimir MartínezRealm 08-13-2015 18:22-0400 Body weight 80.97 kg Vladimir ChristopherPetta AlemanTheMarkets 08-13-2015 18:22-0400 BP Diastolic 70 mm[Hg] Vladimir QThrunc[employer]ets 08-13-2015 18:22-0400 BP Systolic 124 mm[Hg] Vladimir QThrunc[employer]ets 08-13-2015 18:22-0400 BSA (Body Surface Area) 1.87 m2 Vladimir Newstag AlemanTheMarkets 08-13-2015 18:22-0400 Height 155.57 cm Vladimir Newstag AlemanTheMarkets 08-13-2015 18:22-0400 Pulse (Heart Rate) 76 /min Vladimir Funez [employer] 11-27-2014 18:35-0400 BMI (Body Mass Index) 33.93 kg/m2 Vladimir QThrunc[employer] 11-27-2014 18:35-0400 Body Temperature 97.3 [degF] Vladimir ChristopherPetta Ale[employer]Real[employer] 11-27-2014 18:35-0400 Body weight 83.46 kg Vladimir MartínezTheMarkets 11-27-2014 18:35-0400 BP Diastolic 66 mm[Hg] Vladimir [employer]Thrunc[employer] 11-27-2014 18:35-0400 BP Systolic 108 mm[Hg] Vladimir Donay 11-27-2014 18:35-0400 BSA (Body Surface Area) 1.91 m2 [employer] 11-27-2014 18:35-0400 Height 156.84 cm [employer] 11-27-2014 18:35-0400 Pulse (Heart Rate) 88 /min Vladimir Super Heat GameskelbyPetta Aleman [employer] 05-29-2014 18:26-0500 BMI (Body Mass Index) 37.61 kg/m2 Vladimir Donay 05-29-2014 18:26-0500 Body Temperature 97.5 [degF] Vladimir QThruncRealm 05-29-2014 18:26-0500 Body weight 92.53 kg Vladimir Donay 05-29-2014 18:26-0500 BP Diastolic 72 mm[Hg] [employer] 05-29-2014 18:26-0500 BP Systolic 128 mm[Hg] [employer] 05-29-2014 18:26-0500 BSA (Body Surface Area) 2.01 m2 [employer] 05-29-2014 18:26-0500 Height 156.84 cm Vladimir ArshadNoteWagonncTheMarkets 05-29-2014 18:26-0500 Pulse (Heart Rate) 66 /min Vladimir Funez [employer] 06-12-2013 16:34-0500 BMI (Body Mass Index) 34.02 kg/m2 Vladimir Donay 06-12-2013 16:34-0500 Body Temperature 98.6 [degF] [employer] 06-12-2013 16:34-0500 Body weight 83.69 kg Vladimir Donay 06-12-2013 16:34-0500 BP Diastolic 64 mm[Hg] Vladimir Donay 06-12-2013 16:34-0500 BP Systolic 112 mm[Hg] [employer] 06-12-2013 16:34-0500 BSA (Body Surface Area) 1.91 m2 Vladimir QThrunc[employer] 06-12-2013 16:34-0500 Height 156.84 cm Vladimir Donay 06-12-2013 16:34-0500 Pulse (Heart Rate) 76 /min Vladimir Super Heat Gamesxiomara Aleman [employer] 12-12-2012 18:33-0400 BMI (Body Mass Index) 32.4 kg/m2 Vladimir Donay 12-12-2012 18:33-0400 Body Temperature 97.6 [degF] [employer] 12-12-2012 18:33-0400 Body weight 79.07 kg Vladmiir QThruncTheMarkets 12-12-2012 18:33-0400 BP Diastolic 80 mm[Hg] Vladimir ArshadNoteWagonncTheMarkets 12-12-2012 18:33-0400 BP Systolic 140 mm[Hg] Vladimir Donay 12-12-2012 18:33-0400 BSA (Body Surface Area) 1.85 m2 Vladimir [employer]Thrunc[employer] 12-12-2012 18:33-0400 Height 156.21 cm Vladimir Donay 12-12-2012 18:33-0400 Pulse (Heart Rate) 76 /min Vladimir QThrunchard Dee Dee [employer] Encounters Encounter Date Encounter Type Care Provider Facility Start: 01-03-2025 End: 01-03-2025 ambulatory KEITH VÁSQUEZ Not Available Start: 01-03-2025 End: 01-03-2025 Charbel Gabriel DO Work Phone: [facility] Start: 01-03-2025 End: 01-03-2025 Charbel Gabriel DO Work Phone: [facility] Start: 10-11-2024 End: 10-11-2024 Telephone encounter Anjelica Holland MD Work Phone: [facility] Start: 09-30-2024 ambulatory [facility] Start: 09-29-2024 End: 10-03-2024 Evaluation and management of inpatient Lisbet Brush MD Work Phone: [facility] - GEN 9 ICU Comment on above: Gastrointestinal hem orrhage with melena (Primary Dx); Gastrointestinal hemorrhage, unspecified gastrointestinal hemorrhage type; Acute blood loss anemia; Iron deficiency anemia, unspecified iron deficiency anemia type; Right upper quadrant abdominal pain Start: 09-28-2024 End: 09-29-2024 Evaluation and management of inpatient Cooper Eller MD Work Phone: [facility] Start: 09-20-2024 End: 09-20-2024 ambulatory COOPER ELLER Facility:[facility] Start: 09-20-2024 End: 09-20-2024 Subsequent hospital visit by physician Rylie Whipple MD Work Phone: [facility] Comment on above: Liver fibrosis Start: 08-23-2024 End: 08-23-2024 ambulatory Andrae Patino MD Facility:[facility] Start: 08-11-2024 ambulatory COOPER ELLER Facility:[facility] Start: 06-20-2024 End: 06-20-2024 Charbel Gabriel DO Work Phone: [facility] Start: 06-20-2024 End: 06-20-2024 Charbel Gabriel DO Work Phone: [facility] Start: 06-20-2024 End: 06-20-2024 Office outpatient visit 15 minutes Jr. Keith Gabriel DO Work Phone: [facility] Comment on above: Left hip pain (Prima ry Dx); Status post left hip replacement Start: 06-20-2024 End: 06-20-2024 ambulatory KEITH VÁSQUEZ Not Available Start: 04-13-2024 End: 04-13-2024 Office outpatient visit 15 minutes Geri Vergara MD Work Phone: [facility] Comment on above: Cervical spondylosis with myelopathy (Primary Dx) Start: 04-13-2024 End: 04-13-2024 ambulatory UNKNOWN PROVIDER Facility:[facility] Start: 04-13-2024 End: 04-13-2024 Subsequent hospital visit by physician Alexx Op Xray 4 [facility] Comment on above: Cervical spondylosis with myelopathy Start: 03-28-2024 End: 03-28-2024 [address] [facility] Start: 03-28-2024 End: 03-28-2024 Subsequent hospital visit by physician Cooper Eller MD Work Phone: [facility] Comment on above: Nocturia Start: 03-20-2024 End: 03-20-2024 Bamboo flowsheet Jr. Keith Maurice Stepanic DO Work Phone: [facility] Start: 03-20-2024 End: 03-20-2024 Bamboo flowsheet Jr. Keith Maurice Stepanic DO Work Phone: [facility] Start: 03-20-2024 End: 03-20-2024 Postop follow up visit related to original px Jr. Keith Maurice Stepanic DO Work Phone: [facility] Comment on above: Status post left hip replacement (Primary Dx) Start: 03-20-2024 End: 03-20-2024 ambulatory KEITH VÁSQUEZ SHAYLAURBAN Not Available Start: 02-22-2024 End: 02-22-2024 Telephone encounter Jr. Keith Gabriel DO Work Phone: [facility] Comment on above: Restrictions Start: 02-02-2024 End: 02-02-2024 Bamboo flowsheet Jr. Keith Maurice Stepanic DO Work Phone: [facility] Start: 02-02-2024 End: 02-02-2024 Bamboo flowsheet Jr. Keith Maurice Stepanic DO Work Phone: [facility] Start: 02-02-2024 End: 02-02-2024 Postop follow up visit related to original px Jr. Keith Maurice Stepanic DO Work Phone: [facility] Comment on above: Status post left hip replacement (Primary Dx); Acute hip pain, left Start: 02-02-2024 End: 02-02-2024 ambulatory KEITH VÁSQUEZ SANJANA Not Available Start: 01-17-2024 End: 01-19-2024 Telephone encounter Jr. Keith Maurice Stepurban DO Work Phone: [facility] Comment on above: Frederickocollin vossificatio n Start: 12-23-2023 End: 12-27-2023 Evaluation and management of inpatient KEITH GABRIEL Facility:[facility] Start: 11-29-2023 ambulatory [facility] Facility:[facility] Start: 11-29-2023 End: 11-29-2023 Office outpatient visit 40 minutes Lakisha Cordoba MD Work Phone: [facility] [place] Comment on above: Primary biliary chol angitis (Primary Dx); Abnormal LFTs; Splenomegaly; Other abnormal tumor markers Start: 11-29-2023 ambulatory [facility] Facility:[facility] Start: 11-24-2023 End: 11-24-2023 ambulatory [facility] Facility:[facility] Start: 11-09-2023 ambulatory Andrae kirby MD Facility:[facility] Start: 10-26-2023 End: 10-26-2023 ambulatory ALEXANDRA VALENTEJACQUELINE [facility] Start: 10-19-2023 End: 10-19-2023 ambulatory Andrae Patino MD Facility:[facility] Start: 09-22-2023 End: 09-22-2023 ambulatory Andrae Patino MD Facility:[facility] Start: 09-16-2023 End: 09-16-2023 Office outpatient visit 15 minutes Geri Vergara MD Work Phone: [facility] Comment on above: Cervical spondylosis with myelopathy (Primary Dx); Myelopathy (HCC) Start: 09-16-2023 End: 09-16-2023 Subsequent hospital visit by physician Op Xray 4 [facility] Comment on above: Cervical spondylosis with myelopathy Start: 09-16-2023 End: 09-16-2023 ambulatory UNKNOWN PROVIDER Facility:[facility] Start: 06-17-2023 End: 06-17-2023 Patient encounter procedure Geri Vergara MD Work Phone: [facility] Comment on above: Cervical spondylosis with myelopathy (Primary Dx) Start: 06-17-2023 End: 06-17-2023 Subsequent hospital visit by physician Op Xray 1 [facility] Comment on above: Cervical spondylosis with myelopathy Start: 06-17-2023 End: 06-17-2023 ambulatory UNKNOWN PROVIDER Facility:[facility] Start: 05-04-2023 Telephone encounter Geri Vergara MD Work Phone: [facility] Comment on above: Health Information Start: 04-22-2023 End: 04-22-2023 Patient encounter procedure Ortho Spine Rn [facility] Comment on above: Hx of cervical spine surgery (Primary Dx) Start: 04-22-2023 End: 04-22-2023 ambulatory UNKNOWN PROVIDER Facility:[facility] Start: 04-09-2023 Telephone encounter Geri Vergara MD Work Phone: [facility] Comment on above: Health Information Start: 03-31-2023 End: 03-31-2023 Subsequent hospital visit by physician Geri Vergara MD Work Phone: [facility] Comment on above: Arrived Start: 03-23-2023 End: 03-23-2023 Patient encounter procedure Dee Mireles SAND CLEANING MACHINE OPERATOR-SKID WORKER Work Phone: [facility] Comment on above: [...] End: 03-23-2023 Patient encounter status Dee Mireles SAND CLEANING MACHINE OPERATOR-SKID WORKER Work Phone: [facility] Work Phone: Start: 03-23-2023 End: 03-23-2023 Office outpatient visit 25 minutes Geri Vergara MD Work Phone: [facility] Comment on above: Cervical spondylosis with myelopathy (Primary Dx) Start: 03-23-2023 End: 03-23-2023 Subsequent hospital visit by physician Ip/Op Ct Scan Main 2([facility]) [facility] Comment on above: Cervical spondylosis with myelopathy Start: 02-15-2023 Admission to [facility] Geri Vergara MD Work Phone: [facility] Main OR Start: 02-11-2023 End: 02-11-2023 Office outpatient visit 15 minutes Geri Vergara MD Work Phone: [facility] Comment on above: Cervical spondylosis with myelopathy (Primary Dx) Start: 01-30-2023 Letter encounter Geri Vergara MD Work Phone: [facility] Start: 12-24-2022 End: 12-24-2022 Office outpatient visit 15 minutes Geri Vergara MD Work Phone: [facility] Comment on above: Cervical spondylosis with myelopathy (Primary Dx) Start: 11-10-2022 End: 11-11-2022 ambulatory Geri Vergara Facility:[facility] Start: 11-10-2022 End: 11-10-2022 Pain Management Gerry Jerry [facility] Start: 10-29-2022 End: 11-02-2022 Office outpatient visit 15 minutes Geri Vergara MD Work Phone: [facility] Comment on above: Cervical spondylosis with myelopathy (Primary Dx) Start: 10-27-2022 Letter encounter Geri Vergara MD Work Phone: [facility] Start: 10-26-2022 End: 10-26-2022 Orders Only Geri Vergara MD Work Phone: [facility] Comment on above: Myelopathy (HCC) Start: 10-16-2022 End: 10-17-2022 ambulatory Geri Vergara Facility:[facility] Start: 10-16-2022 End: 10-16-2022 Patient encounter procedure Geri Vergara [facility] Start: 09-28-2022 End: 09-29-[address] COOPER ELLER Facility:[facility] Start: 09-24-2022 End: 09-24-2022 [facility] Comment on above: Spinal stenosis of l umbar region, unspecified whether neurogenic claudication present Start: 09-23-2022 Orders Only Geri farias MD Work Phone: [facility] Start: 07-30-2022 End: 07-31-[address] KELLY TIAN . Facility:[facility] Start: 07-07-2022 End: 07-07-[address] KELLY TIAN . Facility:[facility] Start: 06-25-2022 End: 06-26-[address] KELLY TIAN . Facility: Start: 06-16-2022 End: 06-17-2022 ambulatory Janie Henning Facility:[facility] Start: 06-16-2022 End: 06-16-2022 Patient encounter procedure Janie Henning [facility] Start: 06-09-2022 End: 06-10-2022 ambulatory Gerijonathan Vergara Facility:[facility] Start: 06-09-2022 End: 06-09-2022 Patient encounter procedure Geri Marie Vergara [facility] Start: 05-19-2022 End: 05-20-2022 ambulatory Geri Frank Vergara Facility:[facility] Start: 05-19-2022 End: 05-19-2022 Patient encounter procedure Geri Marie Vergara [facility] Start: 05-07-2022 End: 05-08-[address] KELLY TIAN . Facility: Start: 05-01-2022 End: 05-02-2022 ambulatory ANDREW CALLEJAS . Facility:[facility] Start: 04-22-2022 End: 04-22-[address] KELLY TIAN . Facility:[facility] Start: 04-22-2022 End: 04-23-[address] COOPER ELLER Facility:[facility] Start: 03-31-2022 End: 03-31-[address] KELLY TIAN . Facility:[facility] Start: 03-24-2022 End: 03-25-2022 ambulatory Wilver Hannah Facility:[facility] Start: 03-18-2022 End: 03-19-[address] KELLY TIAN . Facility:[facility] Start: 03-10-2022 End: 03-11-[address] COOPER ELLER Facility:[facility] Start: 03-03-2022 End: 03-03-[address] KELLY TIAN . Facility:[facility] Start: 02-19-2022 End: 02-20-[address] KELLY TIAN . Facility:[facility] Start: 01-20-2022 End: 01-20-2022 Subsequent hospital visit by physician Cooper Eller MD Work Phone: [facility] Comment on above: Urinary urgency; Frequency of micturition Start: 12-25-2021 End: 12-26-2021 ambulatory Nikko Familia Facility:[facility] Start: 11-19-2021 End: 11-20-[address] KELLY TIAN . Facility:[facility] Start: 11-18-2021 End: 11-18-2021 Subsequent hospital visit by physician Cooper Eller MD Work Phone: [facility] Comment on above: Urinary urgency Start: 10-14-2021 End: 10-14-[address] KELLY TIAN . Facility:[facility] Start: 10-09-2021 End: 10-10-[address] KELLY TIAN . Facility:[facility] Start: 08-05-2021 End: 08-05-2021 Subsequent hospital visit by physician Mj Alvarenga MD Work Phone: [facility] Start: 07-23-2021 End: 07-27-2021 Patient encounter status Mj Alvarenga MD Work Phone: [facility] Start: 07-23-2021 End: 07-27-2021 Subsequent hospital visit by physician Mj Alvarenga MD Work Phone: [facility] Comment on above: Preop testing Start: 04-10-2020 Office outpatient vi sit 15 minutes Vladimir Celestina Hexiomara Other [facility] Start: 04-10-2020 Office Services Vladimir murphy Other [facility] Start: 01-09-2020 Office outpatient vi sit 15 minutes Vladimir Celestina Greco Other [facility] Start: 2019 End: 2019 Subsequent hospital visit by physician Cooper [facility] Comment on above: Mixed incontinence Start: 07-11-2019 Office outpatient vi sit 15 minutes Vladimir Celestina Greco Other [facility] Start: 02-24-2019 End: 02-26-2019 Subsequent hospital visit by physician Madhuri [address] Dr [facility] Comment on above: Arrived Renal stones Start: 01-06-2019 End: 01-06-2019 Subsequent hospital visit by physician Cooper [facility] Comment on above: Mixed incontinence; OAB (overactive bladder); Frequency of urination; Urgency of urination Start: 11-29-2018 Office outpatient vi sit 15 minutes Vladimir Celestina Heacokatherine Other [facility] Start: 05-31-2018 Office outpatient vi sit 15 minutes Vladimir Celestina Heacokatherine Other [facility] Start: 02-01-2018 Office outpatient vi sit 15 minutes Vladimir Celestina Heacokatherine Other [facility] Start: 07-28-2017 Office outpatient vi sit 15 minutes Vladimir Celestina Heacokatherine Other [facility] Start: 12-03-2016 Procedure Vladimir L Heaco ck Other [facility] Start: 11-11-2016 Office outpatient vi sit 15 minutes Vladimir Celestina Heacokatherine Other [facility] Start: 05-13-2016 Office outpatient vi sit 15 minutes Vladimir Celestina Heacock Other [facility] Start: 09-26-2015 Procedure Vladimir Arshadaco ck Other [facility] Start: 08-13-2015 Office outpatient vi sit 15 minutes Vladimir L Heacock Other [facility] Start: 11-27-2014 Office outpatient vi sit 15 minutes Vladimir Arshadxiomara Other [facility] Start: 05-29-2014 Office Services Vladimir murphy Other [facility] Start: 06-12-2013 Office Services Vladimir Christopher katherine Other [facility] Start: 12-12-2012 Office Services Vladimir Christopher katherine Other [facility] Procedures Date Procedure Procedure Detail Performing Clinician Start: 10-03-2024 BEDSIDE GLUCOSE Juice Melendez MD Work Phone: Start: 10-03-2024 BEDSIDE GLUCOSE Juice Melendez MD Work Phone: Start: 10-03-2024 Basic metabolic panel calcium total Juice Melendez MD Work Phone: Start: 10-02-2024 BEDSIDE GLUCOSE Juice Melendez MD Work Phone: Start: 10-02-2024 End: 10-02-2024 Esophagogastroduodenoscopy transoral diagnostic Christina Noland DO Work Phone: Start: 10-02-2024 Esophagogastroduodenoscopy Christina nelson DO Work Phone: Start: 10-02-2024 PROVATION EGD Anne-Marie Suggs MD Work Phone: Start: 10-02-2024 Assay of magnesium Tj Amin SAND CLEANING MACHINE OPERATOR-SKID WORKER Work Phone: Start: 10-02-2024 Comprehensive metabolic panel Tammy ruiz PA-C Work Phone: Start: 10-01-2024 Blood count hematocrit Tammy Sung PA-C Work Phone: Start: 10-01-2024 Blood count hematocrit Tammy Sung PA-C Work Phone: Start: 10-01-2024 Comprehensive metabolic panel Tammy Cardoza marlinz PA-C Work Phone: Start: 09-30-2024 Blood count hematocrit Tammy Posadas Pineda PA-C Work Phone: Start: 09-30-2024 Blood count hematocrit Tammy Posadas Pineda PA-C Work Phone: Start: 09-30-2024 Comprehensive metabolic panel Tammy Cardoza chultz PA-C Work Phone: Start: 09-30-2024 Calcium ionized Tj Randolphnner SAND CLEANING MACHINE OPERATOR-SKID WORKER Work Phone: Start: 09-30-2024 Adult depression screening assessment Anjelica Holland MD Work Phone: Start: 09-29-2024 Procalcitonin (pct) Tj Randolphnner SAND CLEANING MACHINE OPERATOR-SKID WORKER Work Phone: Start: 09-29-2024 REPEATED ABORH Lisbet Brush MD Work Phone: Start: 09-29-2024 End: 09-29-2024 Antibody screen Juice Melendez MD Work Phone: Comment on above: Performed By: #### TSC #### [facility] ([facility]) [address] [place] [address] VIR Start: 09-29-2024 Blood typing serologic abo Tj story SAND CLEANING MACHINE OPERATOR-SKID WORKER Work Phone: Start: 09-29-2024 Comprehensive metabolic panel Tj dean SAND CLEANING MACHINE OPERATOR-SKID WORKER Work Phone: Start: 09-29-2024 BEDSIDE GLUCOSE Lisbet Brush MD Work Phone: Start: 09-29-2024 Hepatobil syst imag inc gb w/pharma intervenj Smita Washington SAND CLEANING MACHINE OPERATOR - SKID WORKER Work Phone: Start: 09-29-2024 End: 09-29-2024 Transfusion of packed red blood cells Teresa Moss SAND CLEANING MACHINE OPERATOR - SKID WORKER Work Phone: Start: 09-29-2024 Blood count hemoglobin Cooper Eller MD Work Phone: Start: 09-29-2024 Blood occult peroxidase actv qual feces 1 deter Smita Washington APRN [facility] Work Phone: Start: 09-29-2024 End: 09-29-2024 Transfusion of packed red blood cells Smita Washington APRN [facility] Work Phone: Start: 09-29-2024 End: 09-29-2024 Assay of ammonia Smita Washington APRN [facility] Work Phone: Start: 09-29-2024 End: 09-29-2024 Ecg routine ecg w/least 12 lds w/i&r Teresa Moss APRN [facility] Work Phone: Start: 09-29-2024 GLUCOSE, WHOLE BLOOD Cooper Eller MD Work Phone: Start: 09-28-2024 Urinalysis microscopic only Teresa Moss APRN - [facility] Work Phone: Start: 09-28-2024 Urnls dip stick/tablet rgnt auto w/o microscopy Teresa Moss SAND CLEANING MACHINE OPERATOR - [facility] Work Phone: Start: 09-28-2024 Blood typing serologic abo Teresa Moss APRN - [facility] Work Phone: Start: 09-28-2024 Culture bacterial blood aerobic w/id isolates Teresa Moss APRN - [facility] Work Phone: Start: 09-28-2024 LACTATE, SEPSIS Teresa Moss APRN - [facility] Work Phone: Start: 09-28-2024 Ct thorax w/contrast material Teresa Moss APRN - [facility] Work Phone: Start: 09-28-2024 End: 09-29-2024 Ecg routine ecg w/least 12 lds i&r only Teresa Moss APRN - [facility] Work Phone: Start: 09-28-2024 Assay of lipase Teresa Moss SAND CLEANING MACHINE OPERATOR - [facility] Work Phone: Start: 09-28-2024 CULTURE, BLOOD 1 Teresa Moss SAND CLEANING MACHINE OPERATOR - [facility] Work Phone: Start: 09-28-2024 LACTATE, SEPSIS Teresa Moss SAND CLEANING MACHINE OPERATOR - [facility] Work Phone: Start: 09-20-2024 Glucose measurement, blood Rylie gunter MD Work Phone: Start: 04-13-2024 Radex spine cervical 2 or 3 views Jarek Vergara MD Work Phone: Start: 03-28-2024 Urnls dip stick/tablet reagent auto microscopy Prashant Hernandez [facility] Work Phone: Start: 02-02-2024 Radex hip unilateral with pelvis 2-3 views Jr. Keith Gabriel DO Work Phone: Start: 09-16-2023 Radex spine cervical 2 or 3 views Jarek Vergara MD Work Phone: Start: 06-17-2023 Radex spine cervical 2 or 3 views Jarek Vergara MD Work Phone: Start: 03-31-2023 Fluoroscopy up to 1 hour physician/qhp time Tammy Ridley MD Work Phone: Start: 03-23-2023 End: 03-23-2023 Blood typing serologic abo Dee willoughby [facility] Work Phone: Start: 03-23-2023 Ecg routine ecg w/least 12 lds trcg only w/o i&r To Be Assigned Start: 03-23-2023 Blood typing, ABO, Rho(D) and RBC antibody screening Dee Mireles [facility] Work Phone: Start: 03-23-2023 End: 03-23-2023 Thromboplastin time partial plasma/whole blood Dee Mireles [facility] Work Phone: Start: 03-23-2023 Ct cervical spine w/o contrast material Geri Vergara MD Work Phone: Start: 10-26-2022 MR NEURO IMAGE IMPORT Geri Vergara MD Work Phone: Start: 09-24-2022 MR NEURO IMAGE IMPORT Geri Vergara MD Work Phone: Start: 01-20-2022 Urnls dip stick/tablet reagent auto microscopy Alexandra Frye PA-C Work Phone: Start: 12-26-2021 Mammography Jr. Stepanic DO Work Phone: Start: 11-18-2021 Urnls dip stick/tablet reagent auto microscopy Alexandra Frye PA-C Work Phone: Start: 08-05-2021 Electrical stimulation of bladder Gerry Jerry Start: 07-23-2021 Ecg routine ecg w/least 12 lds i&r only Alexandra Frye PA-C Work Phone: Start: 07-23-2021 Basic metabolic panel calcium total Alexandra THOMPSON-C Work Phone: Start: 07-23-2021 IMMATURE PLATELET FRACTION Alexandra balbuenae PA-C Work Phone: Start: 10-08-2020 Complete blood count Vladimir Greco Start: 10-08-2020 Comprehensive metabolic panel Vladimir sanchez Start: 08-13-2020 Colonoscopy Jr. Stepanic DO Work Phone: Start: 07-11-2020 Complete blood count Vladimir Greco Start: 07-11-2020 Comprehensive metabolic panel Vladimir sanchez Start: 04-10-2020 Current Medications Verified MIPS Vladimir Greco Start: 04-10-2020 Doc meds verified w/pt or re Vladimir Mcgrath ock Start: 04-01-2020 Complete blood count Vladimir Greco Start: 04-01-2020 Comprehensive metabolic panel Vladimir sanchez Start: 01-09-2020 Complete blood count Vladimir bart Greco Start: 01-09-2020 Current Medications Verified MIPS Vladimir arriaga Fannie Start: 01-09-2020 Doc meds verified w/pt or re Vladimir Arshadac ock Start: 01-09-2020 Dual energy X-ray absorptiometry Vladimir bart Greco Start: 01-02-2020 Complete blood count Vladimir Greco Start: 01-02-2020 Comprehensive metabolic panel Vladimir sanchez Start: 2019 Urnls dip stick/tablet reagent auto microscopy Prashant Hernandez Work Phone: Start: 08-09-2019 Complete blood count Vladimir Greco Start: 08-09-2019 Comprehensive metabolic panel Vladimir sanchez Start: 07-11-2019 Complete blood count Vladimir Greco Start: 07-11-2019 Current Medications Verified MIPS Vladimir bart Greco Start: 07-11-2019 Doc meds verified w/pt or re Vladimir Jeancarlosac ock Start: 05-31-2019 Complete blood count Vladimir Greco Start: 05-31-2019 Comprehensive metabolic panel Vladimir sanchez Start: 03-01-2019 Blood count complete auto&auto difrntl wbc Vladimir Greco Start: 03-01-2019 Complete blood count Vladimir Greco Start: 03-01-2019 Comprehensive metabolic panel Vladimir wilson Start: 02-24-2019 Radiologic exam abdomen 1 view Prashant Riaz Hernandez Work Phone: Start: 01-06-2019 Urnls dip stick/tablet reagent auto microscopy Prashant Hernandez Work Phone: Start: 11-29-2018 Current Medications Verified MIPS Vladimir Greco Start: 11-29-2018 Doc meds verified w/pt or re Vladimir Arshadac ock Start: 11-22-2018 Blood count complete auto&auto difrntl wbc Vladimir Greco Start: 11-22-2018 Complete blood count Vladimir Greco Start: 11-22-2018 Comprehensive metabolic panel Vladimir wilson Start: 08-29-2018 Blood count complete auto&auto difrntl wbc Vladimir Greco Start: 08-29-2018 Complete blood count Vladimir Greco Start: 08-29-2018 Comprehensive metabolic panel Vladimir wilson Start: 08-23-2018 Blood count complete auto&auto difrntl wbc Vladimir Greco Start: 08-23-2018 Complete blood count Vladimir Greco Start: 08-23-2018 Comprehensive metabolic panel Vladimir wilson Start: 06-03-2018 Blood count complete auto&auto difrntl wbc Vladimir Greco Start: 06-03-2018 Complete blood count Vladimir Greco Start: 05-31-2018 Current Medications Verified MIPS Vladimir Greco Start: 05-31-2018 Doc meds verified w/pt or re Vladimir simpson Start: 05-24-2018 Blood count complete auto&auto difrntl wbc Vladimir Greco Start: 05-24-2018 Complete blood count Vladimir Greco Start: 05-24-2018 Comprehensive metabolic panel Vladimir wilson Start: 02-01-2018 Current Medications Verified MIPS Vladimir Greco Start: 01-28-2018 Blood count complete auto&auto difrntl wbc Vladimir Greco Start: 01-28-2018 Complete blood count Vladimir Greco Start: 01-28-2018 Comprehensive metabolic panel Vladimir wilson Start: 01-24-2018 Blood count complete auto&auto difrntl wbc Vladimir Greco Start: 01-24-2018 Complete blood count Vladimir Greco Start: 01-24-2018 Comprehensive metabolic panel Vladimir wilson Start: 07-28-2017 Current Medications Verified MIPS Vladimir Greco Start: 07-19-2017 Blood count complete auto&auto difrntl wbc Vladimir Greco Start: 07-19-2017 Complete blood count Vladimir Greco Start: 07-19-2017 Comprehensive metabolic panel Vladimir wilson Start: 05-13-2017 Blood count complete auto&auto difrntl wbc Vladimir Greco Start: 05-13-2017 Complete blood count Vladimir Greco Start: 05-13-2017 Comprehensive metabolic panel Vladimir wilson Start: 12-03-2016 Colonoscopy Mj Alvarenga MD Work Phone: Start: 11-11-2016 Blood count complete auto&auto difrntl wbc Vladimir Greco Start: 11-11-2016 Colon ca scrn not hi rsk ind Vladimir Mcgrath ock Start: 11-11-2016 Complete blood count Vladimir Greco Start: 11-11-2016 Comprehensive metabolic panel Vladimir wilson Start: 11-11-2016 Screening colonoscopy Vladimir Arshadxiomara Start: 11-04-2016 Blood count complete auto&auto difrntl wbc Vladimir Arshadxiomara Start: 11-04-2016 Complete blood count Vladimir Arshadxiomara Start: 11-04-2016 Comprehensive metabolic panel Vladimir wilson Start: 05-13-2016 Colon ca scrn not hi rsk ind Vladimir Arshadac ock Start: 05-13-2016 Screening colonoscopy Vladimir Arshadxioamra Start: 02-13-2016 Blood count complete auto&auto difrntl wbc Vladimir Arshadxiomara Start: 02-13-2016 Complete blood count Vladimir Arshadxiomara Start: 02-10-2016 Blood count complete auto&auto difrntl wbc Vladimir Arshadxiomara Start: 02-10-2016 Complete blood count Vladimir Arshadxiomara Start: 02-10-2016 Comprehensive metabolic panel Vladimir wilson Start: 08-13-2015 Colon ca scrn not hi rsk ind Vladimir Mcgrath ock Start: 08-13-2015 Screening colonoscopy Vladimir Arshadxiomara Start: 05-30-2015 Blood count complete auto&auto difrntl wbc Vladimir Arshadxiomara Start: 05-30-2015 Complete blood count Vladimir Arshadkelbykatherine Start: 05-30-2015 Comprehensive metabolic panel Vladimir Gonzalez steve Start: 05-21-2014 Blood count complete auto&auto difrntl wbc Vladimir Arshadxiomara Start: 05-21-2014 Complete blood count Vladimir Arshadkelbykatherine Start: 05-21-2014 Comprehensive metabolic panel Vladimir Gonzalez steve Complete repair of rotator cuff Geri Vergara Comment on above: [address] [place] [address] Gabriel [address] [facility] [address] Gabriel H/O: hysterectomy Geri Mo jessica Comment on above: 1993 [place] Cervantes History of right tot al knee replacement Geri Vergara Comment on above: [address] [facility] [address] Gabriel Laboratory test result abnormal Other abnormal tumor markers Lakisha Cordoba MD Work Phone: Plan of Treatment Date Care Activity Detail Author Start: 08-13-2030 Screening for malignant neoplasm of colon [facility] Start: 03-10-2027 Cholesterol [Mass/volume] in Serum or Plasma Cholesterol [facility] Start: 12-03-2026 Colon cancer screen colonoscopy Colon cancer screen colonoscopy [facility] [place] Start: 12-03-2026 Screening for malignant neoplasm of colon [facility] Start: 03-13-2026 Glaucoma screening Diabetic retinal exam [facility] Start: 02-14-2026 Screening for malignant neoplasm of breast Breast cancer screen [facility] Start: 10-03-2025 Adult BMI Screening Adult BMI Screening [facility] Start: 10-02-2025 Tobacco Screening Tobacco Screening [facility] Start: 09-30-2025 Depression Screening Depression Screening [facility] Start: 09-29-2025 GFR test (Diabetes, CKD 3-4, OR last GFR 15-59) GFR test (Diabetes, CKD 3-4, OR last GFR 15-59) [facility] Start: 09-29-2025 Screening for malignant neoplasm of colon [facility] Start: 09-26-2025 Hemoglobin A1c measurement A1C test (Diabetic or Prediabetic) [facility] Start: 09-26-2025 Lipid panel Lipids [facility] Start: 09-26-2025 Urine screening for protein Diabetic Alb to Cr ratio (uACR) test [facility] Start: 09-25-2025 COVID-19 Vaccine ( season) COVID-19 Vaccine () [facility] Comment on above: Postponed from 08/25/2024 (Patient Refus ed) Start: 09-25-2025 Depression Screen Depression Screen [facility] Start: 09-25-2025 Hepatitis A vaccine (1 of 2 - Risk 2-dose series) Hepatitis A vaccine (1 of 2 - Risk 2-dose series) [facility] Comment on above: Postponed from 1968 (Patient Refus ed) Start: 04-11-2025 End: 04-11-2025 Patient encounter procedure 04/11/2025 9:50 AM EST Office Visit Cooper Eller MD [address] [place] [address] [place] [phone] Cooper Eller MD [address] [place] [address], [place] [address] mason Eller MD Comment on above: mason Start: 03-28-2025 Annual Wellness Visit (Medicare) Annual Wellness Visit (Medicare) [facility] Start: 03-24-2025 Annual Wellness Visit (G0439) Annual Wellness Visit (G0439) [facility] Start: 03-24-2025 Depression Screen Depression Screen [facility] Start: 03-15-2025 Hemoglobin A1c measurement A1C test (Diabetic or Prediabetic) [facility] Start: 03-15-2025 Urine screening for protein Urine Protein (microalbumin) [facility] Start: 01-22-2025 Influenza vaccination [facility] Start: 01-03-2025 End: 01-03-2025 Patient encounter procedure 01/03/2025 2:15 PM EDT Office Visit [facility] [address] [place] [phone] Jr. Keith Gabriel, DO [address] [facility] [address] [place] [address] Left hip pain [facility] Comment on above: Left hip pain Start: 12-25-2024 Lipid panel Lipid Profile [facility] Start: 12-19-2024 End: 12-19-2024 Patient encounter procedure 12/19/2024 2:15 PM EDT Office Visit [facility] & GYNECOLOGY [address] [place] [address] Destinee Coughlin APRN - JEFFREY[address] [facility] [address] [place] [address] yearly-last PAP 12/15/2022-Medicare [facility] Comment on above: yearly-last PAP 12/15/2022-Medicare Start: 12-14-2024 Diabetic foot examination Diabetic foot exam [facility] Start: 12-13-2024 End: 12-13-2024 Patient encounter procedure 12/13/2024 1:15 PM EDT Office Visit [facility] [address] [place] [phone] Jr. Keith Gabriel, DO [address] [facility] [address] [place] [address] [facility] Start: 12-05-2024 DTaP/Tdap/Td vaccine (1 - Tdap) DTaP/Tdap/Td vaccine (1 - Tdap) [facility] Comment on above: Postponed from 1968 (Patient Refus ed) Start: 11-28-2024 Potassium [Moles/volume] in Serum or Plasma POTASSIUM [facility] Start: 2024 RSV vaccine (adult) (1 - 1-dose 75+ series) RSV vaccine (adult) (1 - 1-dose 75+ series) [facility] Start: 10-17-2024 End: 10-17-2024 Patient encounter procedure 10/17/2024 2:00 PM EDT Office Visit [facility] [address] [facility] [address] [place] [phone] Anjelica Holland MD [address] [facility] [address] [place] [address] [facility] Start: 10-11-2024 End: 10-11-2024 Patient encounter procedure 10/11/2024 2:20 PM EDT Office Visit Cooper Eller MD [address] [place] [address] [place] [address] Cooper Eller MD [address] [place] [address] [place] [address] 2 week follow up Cooper Eller MD Comment on above: 2 week follow up Start: 09-25-2024 End: 09-25-2024 Patient encounter procedure 09/25/2024 1:30 PM EDT Office Visit Cooper Eller MD [address] [place] [address] [place] [address] Cooper Eller MD [address] [place] [address], [facility] [address] 6 month f/u Cooper Eller MD Comment on above: 6 month f/u Start: 09-20-2024 Lipid panel Lipids [facility] Start: 09-13-2024 Hemoglobin A1c measurement Hemoglobin A1C [facility] Start: 08-25-2024 COVID-19 Vaccine () COVID-19 Vaccine () [facility] Start: 06-20-2024 End: 06-20-2024 Patient encounter procedure [facility] Comment on above: Arrived Start: 06-01-2024 End: 06-01-2024 Patient encounter procedure 06/01/2024 1:30 PM EST Office Visit [facility] UROLOG[address] [place] [address] Prashant Hernandez, SAND CLEANING MACHINE OPERATOR - SKID WORKER [address] [facility] [address] [place] [address] 8 week f/u/ patient bringing device [facility] Comment on above: 8 week f/u/ patient bringing device Start: 04-12-2024 End: 04-12-2025 XR Cervical spine Lateral Views W flexion and W extension XR C-SPINE FLEX/EXT ONLY 2 VIEWS Imaging Routine Cervical spondylosis with myelopathy Expected: 04/12/2024, Expires: 04/12/2025 [employer] Work Phone: Comment on above: Expected: 04/12/2024, Expires: Start: 04-06-2024 End: 04-06-2024 Patient encounter procedure 04/06/2024 11:00 AM EST Office Visit [facility] [address] [place] [address] Geri Vergara MD [address] [place] [address] [facility] Start: 03-23-2024 Creatinine measurement Basic Metabolic Panel [facility] Start: 03-20-2024 End: 03-20-2024 Patient encounter procedure [facility] Comment on above: Arrived Start: 03-15-2024 Lipid panel Lipid Profile [facility] Start: 03-15-2024 Urine screening for protein Microalbumin [facility] Start: 03-11-2024 Glaucoma screening Eye Exam [facility] Start: 02-02-2024 End: 02-02-2024 Patient encounter procedure [facility] Comment on above: Arrived Start: 01-23-2024 Influenza vaccination INFLUENZA VACCINE (#[facility]) [facility] Start: 12-27-2023 Screening for malignant neoplasm of breast Breast cancer screen [facility] Start: 12-13-2023 COVID Vaccine Additional Dose (65+ years) COVID Vaccine Additional Dose (65+ years) [facility] Start: 11-29-2023 End: 11-28-2024 [facility] Comment on above: Expected: 11/29/2023 (Approximate), Expi res: 11/28/2024 Start: 09-16-2023 End: 09-16-2023 Patient encounter procedure 09/16/2023 11:15 AM EDT [facility] [address] [place] [address] Geri Vergara MD [address] [place] [address] [facility] Start: 09-15-2023 End: 09-14-2024 XR Cervical spine Lateral Views W flexion and W extension XR C-SPINE FLEX/EXT ONLY 2 VIEWS Imaging Routine Cervical spondylosis with myelopathy Expected: 09/15/2023, Expires: 09/14/2024 [employer] Work Phone: Comment on above: Expected: 09/15/2023, Expires: Start: 06-24-2023 End: 06-24-2023 Patient encounter procedure 06/24/2023 10:45 AM EST [facility] [address] [place] [address] Geri Vergara MD [address] [place] [address] [facility] Start: 06-17-2023 End: 06-17-2023 Patient encounter procedure 06/17/2023 10:45 AM EST [facility] [address] [place] [address] Geri Vergara MD [address] [place] [address] [facility] Start: 05-26-2023 Hemoglobin A1c measurement Hemoglobin A1C [facility] Start: 04-22-2023 End: 04-22-2023 Patient encounter procedure [facility] Start: 03-31-2023 End: 03-31-2023 Admission to same day surgery center 03/31/2023 7:30 AM EST - 03/31/2023 10:23 AM EST [facility] [address] [place] [address] Geri Vergara MD [address] [place] [address] LAMINOPLASTY, POSTERIOR CERVICAL [facility] [place] Comment on above: LAMINOPLASTY, POSTERIOR CERVICAL Start: 03-31-2023 End: 03-31-2023 LAMINOPLASTY, POSTERIOR CERVICAL LAMINOPLASTY, POSTERIOR CERVICAL Routine scheduled Cervical spondylosis with myelopathy 03/31/2023 7:30 AM EST [facility] Start: 03-31-2023 Subsequent hospital visit by physician [facility] [place] Start: 03-23-2023 End: 03-23-2023 Patient encounter procedure 03/23/2023 10:30 AM EDT Office Visit [facility] [address] [place] [address] Dee Mireles, WM-SHEILA [address] [place] [address] [facility] Start: 03-23-2023 End: 03-23-2023 Patient encounter procedure [facility] Start: 03-10-2023 GFR test (Diabetes, CKD 3-4, OR last GFR 15-59) GFR test (Diabetes, CKD 3-4, OR last GFR 15-59) Eugenio Madrid [facility] Start: 02-21-2023 Annual Wellness Visit (G0439) Annual Wellness Visit (G0439) [facility] Start: 02-21-2023 Influenza vaccination Influenza Vaccine (#1) [facility] Start: 02-15-2023 End: 02-16-2024 CT Cervical spine WO contrast CT C-SPINE W/O CONTRAST Imaging Within 1 week Cervical spondylosis with myelopathy Expected: 02/15/2023, Expires: 02/16/2024 [employer] Work Phone: Comment on above: Expected: 02/15/2023, Expires: Start: 02-11-2023 End: 02-11-2023 Patient encounter procedure 02/11/2023 10:30 AM EDT Office Visit [facility] [address] [place] [address] Geri Vergara MD [address] [place] [address] [facility] Start: 01-22-2023 COVID-19 Vaccine ( season) COVID-19 Vaccine ( season) [facility] Start: 12-26-2022 Screening for malignant neoplasm of breast [facility] Start: 11-03-2022 End: 11-03-2022 Patient encounter procedure 11/03/2022 Office Visit Obstetrics and Gynecology Destinee Coughlin, SAND CLEANING MACHINE OPERATOR - CNStephanie [address] [facility] [address] [place] [phone] [facility]STETRICS & GYNECOLOGY [facility] Start: 10-29-2022 ambulatory Ambulatory Facility: Start: 10-29-2022 End: 10-29-2022 Patient encounter procedure 10/29/2022 9:45 AM EDT Office Visit [facility] [address] [place] [address] Geri Vergara MD [address] [place] [address] [facility] Start: 10-06-2022 End: 10-06-2022 Patient encounter procedure 10/06/2022 Office Visit Orthopedics Geri Vergara MD [address] [place] [address] [facility] Start: 09-23-2022 End: 09-24-2023 DOWNLOAD [email or web address] IMAGES TO [employer] DOWNLOAD [email or web address] IMAGES TO [employer] Imaging Routine Spinal stenosis of lumbar region, unspecified whether neurogenic claudication present Expected: 09/23/2022, Expires: 09/24/2023 [employer] Work Phone: Comment on above: Expected: 09/23/2022, Expires: Start: 09-17-2022 Depression Screen Depression Screen [facility] Start: 09-17-2022 DTaP/Tdap/Td vaccine (1 - Tdap) DTaP/Tdap/Td vaccine (1 - Tdap) [facility] Comment on above: Postponed from 1968 (Patient Refus ed) Start: 07-23-2022 Creatinine measurement Creatinine monitoring [facility] Start: 07-23-2022 Potassium monitoring Potassium monitoring [facility] Start: 03-24-2022 End: 03-24-2022 Patient encounter procedure 03/24/2022 Office Visit Urology Prashant Hernandez, SAND CLEANING MACHINE OPERATOR - SKID WORKER [address] [facility] [address] [place] [phone] [facility] UROLOGY [facility] Start: 03-18-2022 Depression Screen Depression Screen [facility] Start: 03-17-2022 End: 03-17-2022 Patient encounter procedure 03/17/2022 Office Visit Internal Medicine Cooper Eller MD [address] [place] [address], [place] [address] Cooper Eller MD Start: 03-13-2022 Annual Wellness Visit (AWV) Annual Wellness Visit (AWV) [facility] Start: 03-12-2022 Diabetic foot examination Diabetic foot exam [facility] Start: 03-04-2022 Hemoglobin A1c measurement A1C test (Diabetic or Prediabetic) [facility] Start: 03-04-2022 Lipid panel [facility] Start: 03-04-2022 Thyroid stimulating hormone measurement TSH testing [facility] Start: 03-04-2022 Urine screening for protein Diabetic microalbuminuria test [facility] Start: 01-22-2022 Influenza vaccination Flu vaccine (#1) [facility] Start: 01-20-2022 End: 01-20-2022 Patient encounter procedure 01/20/2022 Office Visit Urology Prashant Hernandez, SAND CLEANING MACHINE OPERATOR - SKID WORKER [address] [facility] [address] [place] [phone] [facility] UROLOGY [facility] Start: 12-26-2021 Screening for malignant neoplasm of breast MAMMOGRAM SCREENING DISCUSSION [facility] Start: 10-30-2021 End: 10-30-2021 Patient encounter procedure 10/30/2021 Office Visit Obstetrics and Gynecology Destinee Coughlin, SAND CLEANING MACHINE OPERATOR - CNM [address] [facility] [address] [facility] [place] [phone] [facility] OBSTETRICS & GYNECOLOGY [facility] Start: 09-17-2021 End: 09-17-2021 Patient encounter procedure 09/17/2021 Office Visit Internal Medicine Cooper Eller MD [address] [place] [address], [address] [place], [place] [phone] Cooper Eller MD Start: 09-10-2021 Hepatitis A vaccine (1 of 2 - Risk 2-dose series) Hepatitis A vaccine (1 of 2 - Risk 2-dose series) [facility] Comment on above: Postponed from 1950 (Not Indicated ) Start: 08-28-2021 End: 08-28-2021 Patient encounter procedure 08/28/2021 Office Visit Urology Prashant Hernandez, SAND CLEANING MACHINE OPERATOR - SKID WORKER [address] [facility] [address] [place] [phone] [facility] UROLOGY [facility] Start: 08-13-2021 Screening for malignant neoplasm of colon COLORECTAL CANCER SCREENING DISCUSSION [facility] Start: 08-05-2021 End: 08-05-2021 Admission to same day surgery center 08/05/2021 Surgery IP Unit Mj Alvarenga MD [address] [facility], [address] [place] [address] SACRAL NERVE STIMULATOR IMPLANT--REMOVE INTERSTIM AND LEADS PLACEMENT OF NEW INTERSTIM [facility] Comment on above: SACRAL NERVE STIMULATOR IMPLANT--REMOVE INTERSTIM AND LEADS PLACEMENT OF NEW INTERSTIM Start: 08-05-2021 End: 08-05-2021 Inc impltj neurostimulator eltrd sacral nerve [facility] Start: 08-05-2021 Subsequent hospital visit by physician 08/05/2021 Hospital Encounter IP Unit Mj Alvarenga MD [address] [facility], [address] [place] [address] [facility] [place] Start: 03-31-2021 Diabetic retinal exam Diabetic retinal exam [place], [place] Start: 10-08-2020 Blood count complete auto&auto difrntl wbc CBC w diff [facility] [employer] [facility] Start: 10-08-2020 Comprehensive metabolic panel Comp [facility] [employer] [facility] Start: 08-22-2020 Creatinine measurement Creatinine monitoring [place], [place] Start: 08-22-2020 HbA1c (Bld) [Mass fraction] A1C test (Diabetic or Prediabetic) [place], [place] Start: 08-22-2020 Lipid panel Lipid screen [place], [place] Start: 08-22-2020 Potassium monitoring Potassium monitoring [place], [place] Start: 07-11-2020 Blood count complete auto&auto difrntl wbc [facility] Start: 07-11-2020 Comprehensive metabolic panel [employer] Start: 04-23-2020 End: 04-23-2020 Office Visit 04/23/2020 Office Visit Urology Prashant Hernandez, SAND CLEANING MACHINE OPERATOR - SKID WORKER [address] [facility] [address] [place] [address] [facility] Start: 04-01-2020 Blood count complete auto&auto difrntl wbc CBC w diff [employer] Start: 04-01-2020 Comprehensive metabolic panel Comp [employer] app Start: 03-31-2020 Diabetic retinal exam Diabetic retinal exam [facility] Start: 03-16-2020 Diabetic retinal exam Diabetic retinal exam [place], [place] Start: 03-06-2020 End: 03-06-2020 Office Visit 03/06/2020 Office Visit Internal Medicine Cooper Eller MD [address] [place] [address], [facility] [address] Cooper Eller MD Start: 02-25-2020 Annual Wellness Visit (AWV) Annual Wellness Visit (AWV) [place], [place] Start: 02-25-2020 DTaP/Tdap/Td vaccine (1 - Tdap) DTaP/Tdap/Td vaccine (1 - Tdap) [place] Comment on above: Postponed from 1968 (Patient Refus ed) Start: 02-25-2020 Shingles Vaccine (2 of 3) Shingles Vaccine (2 of 3) [place] Comment on above: Postponed from 11/29/2013 (Patient Refus ed) Start: 02-24-2020 Annual Wellness Visit (AWV) Annual Wellness Visit (AWV) [place] Start: 02-18-2020 A1C test (Diabetic or Prediabetic) A1C test (Diabetic or Prediabetic) [place] Start: 02-18-2020 TSH Qn TSH testing [facility] Start: 02-18-2020 TSH testing TSH testing [facility] Start: 01-09-2020 Blood count complete auto&auto difrntl wbc CBC, PLATELET, DIFFERENTIAL, AUTOMATED [place] [employer] [facility] [employer] Start: 01-09-2020 Dual energy X-ray photon absorptiometry DEXA bone density study of axial skeleton [place] [employer] [facility] [employer] Start: 01-02-2020 Blood count complete auto&auto difrntl wbc CBC w diff [employer] [facility] [employer] Start: 01-02-2020 Comprehensive metabolic panel Comp [place] [employer] [facility] [employer] Start: 12-08-2019 Breast cancer screen Breast cancer screen [place], [place] Start: 12-08-2019 Screening for malignant neoplasm of breast Breast cancer screen [place], [place] Start: 10-26-2019 End: 10-26-2019 Office Visit 10/26/2019 Office Visit Obstetrics and Gynecology Destinee Coughlin, SAND CLEANING MACHINE OPERATOR - CNM [address] [address] [facility] Start: 10-10-2019 End: 10-10-2019 Office Visit 10/10/2019 Office Visit Obstetrics and Gynecology Destinee Coughlin, SAND CLEANING MACHINE OPERATOR - CNM [address] [place] [address] [facility] PIE CRIMPING MACHINE OPERATOR Start: 08-29-2019 End: 08-29-2019 Office Visit 08/29/2019 Office Visit Internal Medicine Cooper Eller MD [address] [place] [address], [facility] [address] Cooper Eller MD Start: 08-18-2019 A1C test (Diabetic or Prediabetic) A1C test (Diabetic or Prediabetic) [place] Start: 08-18-2019 Creatinine monitoring Creatinine monitoring [place], [place] Start: 08-18-2019 Potassium monitoring Potassium monitoring [place], [place] Start: 08-09-2019 Blood count complete auto&auto difrntl wbc CBC w diff [employer] Start: 08-09-2019 Comprehensive metabolic panel [email or web address] Start: 07-11-2019 Blood count complete auto&auto difrntl wbc CBC, PLATELET, DIFFERENTIAL, AUTOMATED [employer] Start: 05-31-2019 Blood count complete auto&auto difrntl wbc CBC w diff [employer] Start: 05-31-2019 Comprehensive metabolic panel CMP [employer] Start: 03-10-2019 End: 03-10-2019 Office Visit 03/10/2019 Office Visit Urology Prashant Hernandez, SAND CLEANING MACHINE OPERATOR - SKID WORKER [address] [facility] [place] [address] [facility] Start: 03-01-2019 Blood count complete auto&auto difrntl wbc CBC, PLATELET, DIFFERENTIAL, AUTOMATED [employer] Start: 03-01-2019 Comprehensive metabolic panel COMPREHENSIVE METABOLIC PANEL [email or web address] Start: 02-25-2019 [object Object] Diabetic foot exam [place], [place] Start: 02-25-2019 Diabetic foot examination Diabetic foot exam [place] Start: 02-25-2019 Hepatitis A vaccine (1 of 2 - Risk 2-dose series) Hepatitis A vaccine (1 of 2 - Risk 2-dose series) [place] Comment on above: Postponed from 1950 (Not Indicated ) Start: 02-24-2019 End: 02-24-2019 Office Visit 02/24/2019 Office Visit Internal Medicine Cooper Eller MD [address] [place] [address], [place] [address] Cooper Eller MD Start: 02-18-2019 Lipid screen Lipid screen [place], [place] Start: 01-22-2019 Influenza vaccination Flu vaccine (#1) [place], [place] Start: 11-22-2018 Blood count complete auto&auto difrntl wbc CBC w diff [employer] app Start: 11-22-2018 Comprehensive metabolic panel Comp Context app Start: 08-29-2018 Blood count complete auto&auto difrntl wbc CBC, PLATELET, DIFFERENTIAL, AUTOMATED [employer] app Start: 08-29-2018 Comprehensive metabolic panel COMPREHENSIVE METABOLIC PANEL [employer] [facility] Start: 08-23-2018 Blood count complete auto&auto difrntl wbc CBC w diff [employer] app Start: 08-23-2018 Comprehensive metabolic panel Comp [employer] app Start: 08-17-2018 TSH testing TSH testing [place], [place] Start: 06-03-2018 Blood count complete auto&auto difrntl wbc CBC, PLATELET, DIFFERENTIAL, AUTOMATED [employer] [facility] Start: 05-24-2018 Blood count complete auto&auto difrntl wbc CBC w diff [employer] Start: 05-24-2018 Comprehensive metabolic panel Comp [employer] app Start: 03-25-2016 Diabetic microalbuminuria test Diabetic microalbuminuria test [place], [place] Start: 03-25-2016 Urine screening for protein Diabetic Alb to Cr ratio (uACR) test [facility] Start: 09-22-2015 Annual wellness visit Annual Wellness Visit ([id number]) [facility] Start: 2014 Fall Risk Screening Fall Risk Screening [facility] Start: 2014 Pneumococcal vaccination Pneumococcal Vaccine(s) (65+ yrs) (1 - PCV) [facility] Start: 2014 Screening for osteoporosis Bone Densitometry [facility] Start: 11-29-2013 Administration of varicella zoster vaccine Zoster (Shingles) Vaccine (2 of 3) [facility] Start: 11-29-2013 Shingles Vaccine (2 of 3) Shingles Vaccine (2 of 3) [facility] Start: 11-29-2013 Zoster vaccine hzv live for subcutaneous use ZOSTER (SHINGLES) VACCINE (2 of 3) [facility] Start: 2012 Annual Wellness Visit (AWV) Annual Wellness Visit (AWV) [place] Start: 2009 Hepatitis B (HBV) Vaccine (optional start 60+ years) Hepatitis B (HBV) Vaccine (optional start 60+ years) [facility] Start: 2009 Hepatitis B vaccination HEP B VACCINE (1 of 3 - Risk 3-dose series) [facility] Start: 2009 RSV vaccine (optional 60+ years) RSV vaccine (optional 60+ years) [facility] Start: 10-21-1999 Shingles (RZV) Vaccine (1 of 2) Shingles (RZV) Vaccine (1 of 2) [facility] Start: 1994 Cholesterol [Mass/volume] in Serum or Plasma Cholesterol [facility] Start: 1994 Screening for malignant neoplasm of colon [facility] Start: 1989 Lipid panel LIPID SCREENING [facility] Start: 1989 Screening for malignant neoplasm of breast Mammography [facility] Start: 1970 Screening for malignant neoplasm of cervix CERVICAL CANCER SCREENING DISCUSSION [facility] Start: 1968 DTaP,Tdap and Td Vaccines (1 - Tdap) DTaP,Tdap and Td Vaccines (1 - Tdap) [facility] Start: 1968 DTaP/Tdap/Td vaccine (1 - Tdap) DTaP/Tdap/Td vaccine (1 - Tdap) [facility] Start: 1968 Hepatitis A (HAV) Vaccine (optional start 19+ years) Hepatitis A (HAV) Vaccine (optional start 19+ years) [facility] Start: 1968 Hepatitis A vaccine (1 of 2 - Risk 2-dose series) Hepatitis A vaccine (1 of 2 - Risk 2-dose series) [facility] Start: 1968 Third diphtheria, tetanus and acellular pertussis (DTaP) vaccination TDAP (ADULT) [facility] Start: 10-21-1967 Adult BMI Follow Up Plan Adult BMI Follow Up Plan [facility] Start: 10-21-1967 Hepatitis C screening Hepatitis C Antibody [facility] Start: 10-21-1967 Tetanus + diphtheria + acellular pertussis vaccine (product) Tdap Booster [facility] Start: 1950 Hepatitis A vaccine (1 of 2 - Risk 2-dose series) Hepatitis A vaccine (1 of 2 - Risk 2-dose series) [facility] Start: 04-22-1950 COVID-19 Vaccine (#1) COVID-19 Vaccine (#1) [facility] Start: 1949 Glaucoma screening Eye Exam [facility] Start: 1949 Urine screening for protein Microalbumin [facility] Start: 1949 COVID-19 Vaccine ( formulation) COVID-19 Vaccine ( formulation) [facility] Start: 1949 Cyanocobalamin vitamin b-12 Vitamin B12 [facility] Start: 1949 Diabetic foot examination Foot Exam [facility] Start: 1949 Hepatitis C screening HEPATITIS C VIRUS SCREENING [facility] Start: 1949 Screening for malignant neoplasm of colon [facility] Start: 1949 Screening for osteoporosis DEXA SCAN DISCUSSION [facility] Start: 1949 Tetanus vaccination TETANUS [facility] Start: 1949 Thyroid stimulating hormone measurement TSH [facility] End: 10-06-2024 CBC W Auto Differential panel - Blood CBC auto differential Lab Routine Daily for 9 Days starting 09/28/2024 until 10/06/2024, 2 completed [facility] Comment on above: Daily for 9 Days starting 09/28/2024 unt il 10/06/2024, 2 completed End: 11-28-2024 CBC,PLATELETS CBC,PLATELETS Lab Routine Primary biliary cholangitis Abnormal LFTs Splenomegaly Every 16 Weeks for 3 Occurrences starting 11/29/2023 until 11/28/2024, 1 completed [facility] Comment on above: Every 16 Weeks for 3 Occurrences startin g 11/29/2023 until 11/28/2024, 1 completed End: 10-07-2024 Comprehensive Metabolic Panel w/ Reflex to MG Comprehensive Metabolic Panel w/ Reflex to MG Lab Routine Daily for 9 Days starting 09/29/2024 until 10/07/2024, 1 completed [employer] Comment on above: Daily for 9 Days starting 09/29/2024 unt il 10/07/2024, 1 completed Culture, Blood 1 Culture, Blood 1 Microbiology STAT 09/28/2024 2:05 PM EDT [employer] Culture, Blood 2 Culture, Blood 2 Microbiology STAT 09/28/2024 4:20 PM EDT [employer] End: 2019 Culture, Urine Culture, Urine Microbiology Routine Mixed incontinence 1 Occurrences starting 2019 until 2019 [facility] [facility] Comment on above: 1 Occurrences starting 2019 until 2019 Culture, Urine Culture, Urine Microbiology Routine Mixed incontinence 2019 3:[address] [place] End: 11-18-2021 Culture, Urine [employer] Work Phone: Comment on above: 1 Occurrences starting 11/18/2021 until 11/18/2021 End: 01-20-2022 Culture, Urine [employer] Work Phone: Comment on above: 1 Occurrences starting 01/20/2022 until 01/20/2022 End: 03-28-2024 Culture, Urine [employer] Work Phone: Comment on above: 1 Occurrences starting 03/28/2024 until 03/28/2024 End: 04-05-2023 Ecg routine ecg w/least 12 lds trcg only w/o i&r EKG 12 LEAD - PERFORM MUSE Routine Preop testing 1 Occurrences starting 03/22/2023 until 04/05/2023 [employer] Work Phone: Comment on above: 1 Occurrences starting 03/22/2023 until 04/05/2023 EKG 12 lead EKG 12 lead ECG Routine 09/29/2024 3:46 AM EDT [employer] End: 08-05-2021 Fluoroscopy during operation FLUORO FOR SURGICAL PROCEDURES Imaging Routine Once for 1 Occurrences starting 08/05/2021 until 08/05/2021 [employer] Work Phone: Comment on above: Once for 1 Occurrences starting 08/06/19 until 08/05/2021 End: 09-20-2024 GENERAL PROCEDURE GENERAL PROCEDURE Procedures Routine Once for 1 Occurrences starting 09/20/2024 until 09/20/2024 [facility] Work Phone: Comment on above: Once for 1 Occurrences starting 09/21/19 until 09/20/2024 End: 09-29-2024 Glucose [Mass/volume] in Serum or Plasma POCT glucose Point of Care Testing Routine One Time for 1 Occurrences starting 09/29/2024 until 09/29/2024 [facility] Comment on above: One Time for 1 Occurrences starting 01/2025 until 09/29/2024 End: 10-13-2024 Hemoglobin and Hematocrit Hemoglobin and Hematocrit Lab Routine Post Transfusion Post Transfusion Post Transfustion until discontinued starting 09/29/2024 [facility] Comment on above: Post Transfusion Post Transfusion Post T ransfustion until discontinued starting 09/29/2024 End: 11-28-2024 Hepatic function 2000 panel - Serum or Plasma HEPATIC FUNCTION PANEL Lab Routine Primary biliary cholangitis Abnormal LFTs Splenomegaly Every 16 Weeks for 3 Occurrences starting 11/29/2023 until 11/28/2024, 1 completed [facility] Comment on above: Every 16 Weeks for 3 Occurrences startin g 11/29/2023 until 11/28/2024, 1 completed End: 12-07-2023 HEPATIC WEDGE PRESSURE/VENO [facility] Work Phone: Comment on above: One Time for 1 Occurrences starting 11/21 until 12/07/2023 End: 08-05-2021 INITIATE PACU OXYGEN THERAPY PROTOCOL Initiate PACU Oxygen Therapy Protocol Respiratory Care Routine Continuous until discontinued starting 08/05/2021 [employer] Work Phone: Comment on above: Continuous until discontinued starting 0 08/05/2021 LAMINOPLASTY, FINISH REPAIR WORKER IOR CERVICAL LAMINOPLASTY, POSTERIOR CERVICAL Routine scheduled Cervical spondylosis with myelopathy [facility] Oxygen therapy [Mini mum Data Set] Initiate Oxygen Therapy Protocol Respiratory Care Routine As Needed until discontinued starting 08/05/2021 [employer] Work Phone: Comment on above: As Needed until discontinued starting Oxygen therapy [[facility] Data Set] Initiate Oxygen Therapy Protocol Respiratory Care Routine Daily until discontinued starting 09/28/2024 [facility] [employer] Comment on above: Daily until discontinued starting 2024 End: 09-29-2024 PREPARE RBC (CROSSMATCH), 1 Units PREPARE RBC (CROSSMATCH), 1 Units Blood Bank Routine Once for 1 Occurrences starting 09/29/2024 until 09/29/2024 [facility] [employer] Comment on above: Once for 1 Occurrences starting 09/30/19 until 09/29/2024 End: 09-28-2024 PREPARE RBC (CROSSMATCH), 2 Units PREPARE RBC (CROSSMATCH), 2 Units Blood Bank Routine Once for 1 Occurrences starting 09/28/2024 until 09/28/2024 [facility] [employer] Comment on above: Once for 1 Occurrences starting 09/29/19 until 09/28/2024 End: 09-20-2024 SURG PATH REQUEST [facility] Work Phone: Comment on above: One Time for 1 Occurrences starting 08/24 until 09/20/2024, 1 completed End: 12-07-2023 TRANSCATHETER BIOPSY [facility] Comment on above: One Time for 1 Occurrences starting 11/21 until 12/07/2023 TYPE AND SCREEN TYPE AND SCREEN Blood Bank Routine 09/28/2024 4:20 PM EDT [facility] [employer] [facility] End: 01-06-2019 Urine culture clean catch Urine culture clean catch Microbiology Routine Mixed incontinence OAB (overactive bladder) Frequency of urination Urgency of urination 1 Occurrences starting 01/06/2019 until 01/06/[address] [facility] [address] Comment on above: 1 Occurrences starting 01/06/2019 until 01/06/2019 Urine culture clean catch Urine culture clean catch Microbiology Routine Mixed incontinence OAB (overactive bladder) Frequency of urination Urgency of urination 01/06/2019 10:45 AM EDT [facility] [place], [place] XR Cervical spine La teral Views W flexion and W extension XR C-SPINE FLEX/EXT ONLY 2 VIEWS Imaging Routine Cervical spondylosis with myelopathy 09/16/2023 10:58 AM EDT [facility] XR Cervical spine La teral Views W flexion and W extension XR C-SPINE FLEX/EXT ONLY 2 VIEWS Imaging Routine Cervical spondylosis with myelopathy 04/13/2024 11:45 AM EST [facility] Immunizations Immunization Date Immunization Notes Care Provider Fa cristina 03-15-2024 Hemoglobin A1C Geri Vergara MD Work Phone: [facility] 02-11-2024 influenza, high dose seasonal, preservative-free Cooper Eller MD Work Phone: [facility] 02-11-2024 influenza virus vaccine, unspecified formulation Anjelica Holland MD Work Phone: [facility] 02-23-2023 COVID-19, PFIZER, (a ge 12y+), IM, 30mcg/0.3mL Cooper Eller MD Work Phone: [facility] 02-23-2023 RSV, ABRYSVO, (Pregn ant or age 60y+), PF, IM, 0.5mL Cooper Eller MD Work Phone: [facility] 02-02-2023 Influenza, seasonal vaccine, quadrivalent, adjuvanted, 0.5mL dose, preservative free ([id number]) Geri Vergara MD Work Phone: [facility] 02-02-2023 influenza virus vaccine, unspecified formulation Lakisha Cordoba MD Work Phone: [facility] 11-23-2022 Hemoglobin A1C Dee willoughby SAND CLEANING MACHINE OPERATOR-SKID WORKER Work Phone: [facility] 09-27-2022 COVID-19, PFIZER Bivalent, DO NOT Dilute, (age 12y+), IM, 30 mcg/0.3 mL Cooper Eller MD Work Phone: [facility] 02-01-2022 COVID-19, PFIZER Bivalent, DO NOT Dilute, (age 12y+), IM, 30 mcg/0.3 mL Cooper Eller MD Work Phone: [facility] 02-01-2022 COVID-19, PFIZER PUR PLE top, DILUTE for use, (age 12 y+), 30mcg/0.3mL Cooper Eller MD Work Phone: [facility] 02-01-2022 Influenza, injectabl e, high-dose seasonal, quadrivalent, 0.7 mL, preservative free (KEN=413) [facility] 02-01-2022 influenza virus vaccine, unspecified formulation Geri Vergara MD Work Phone: [facility] 08-27-2021 Pfizer Monovalent (1 2+ yrs) SARS-COV-2 (COVID-19) vaccine, mRNA, spike protein, LNP, pres. free, 30 mcg/0.3mL dose, nabil-sucrose (FIP=738) [facility] 02-15-2021 COVID-19, Pfizer Pur ple top, DILUTE for use, 12+ yrs, 30mcg/0.3mL dose Mj Alvarenga MD Work Phone: [employer] Work Phone: 02-03-2021 Influenza, High-dose , Quadv, 65 yrs +, IM (Fluzone) Mj Alvarenga MD Work Phone: [facility] Work Phone: 07-22-2020 COVID-19, Pfizer Pur ple top, DILUTE for use, 12+ yrs, 30mcg/0.3mL dose Mj Alvarenga MD Work Phone: [facility] Work Phone: 07-01-2020 COVID-19, Pfizer Pur ple top, DILUTE for use, 12+ yrs, 30mcg/0.3mL dose [facility]j [facility]renga [facility] Work Phone: 01-25-2020 influenza virus vaccine, unspecified formulation Mj Alvarenga MD Work Phone: [facility] Work Phone: 01-25-2020 Influenza, High-dose , Quadv, 65 yrs +, IM (Fluzone) Mj Alvarenga MD Work Phone: [facility] 02-14-2019 influenza, high dose seasonal, preservative-free [address], [place] 02-28-2018 influenza, high dose seasonal, preservative-free [facility], [place] 02-28-2018 pneumococcal polysaccharide vaccine, 23 valent [facility] 03-01-2017 Influenza Vaccine, unspecified formulation [address] , [place] 03-01-2017 influenza virus vaccine, unspecified formulation Cooper Eller MD Work Phone: [facility] Work Phone: 02-19-2017 influenza, high dose seasonal, preservative-free Cooper [facility], [place] 03-04-2016 Influenza Vaccine, unspecified formulation [address] Work Phone: 03-04-2016 influenza, injectabl e, quadrivalent, preservative free Juice Melendez MD Work Phone: [facility] 03-04-2016 pneumococcal conjuga te vaccine, 13 valent [facility], [place] 03-02-2016 influenza virus vaccine, unspecified formulation [facility] 02-28-2016 Seasonal trivalent influenza vaccine, adjuvanted, preservative free Juice Melendez MD Work Phone: [facility] 05-01-2015 pneumococcal conjuga te vaccine, [address], [place] 03-24-2015 influenza virus vaccine, unspecified formulation Cooper Eller MD Work Phone: [facility] Work Phone: 03-24-2015 seasonal influenza, intradermal, preservative free [address], [place] 03-13-2015 influenza, high dose seasonal, preservative-free [address], [place] 02-26-2014 influenza virus vaccine, unspecified formulation [facility] 10-04-2013 zoster vaccine, live Cooper Eller [facility] 10-04-2013 zoster vaccine, unspecified formulation Lakisha Cordoba MD Work Phone: [facility] 02-26-2012 zoster vaccine, live Cooper Eller [facility] 03-24-2011 pneumococcal polysaccharide vaccine, 23 valent Cooper [facility], [place] 03-25-2009 novel [id number], preservative-free, injectable [facility] Payers Date Payer Category Payer Commercial Indemnity AARP [id number] 2022 Private Health Insurance AARP [id number] 2020 Managed Care (unspecified) [employer] [id number] 2020 Unknown [id number] 1.13.56.2. [id number] 2018 Medicare MEDICARE MEDICAR E PART A AND B xxxxxxxxxxx 2018-Present [phone] [address] [address] [place] [address] xxxxxxxxxxx [id number] .[id number] 2018 Private Health Insurance HUMANA HUMANA MEDICARE SUPP xxxxxxxxx 2018-Present [address] [address] [place] [address] xxxxxxxxx [id number] .[id number] 2014 Medicare [id number]. 1.13.56.2. [id number] 2014 Medicare FFS MEDICARE [id number]. [id number] 1959 Medicare [id number] 2.16.840.1.900678.3.441 1959 Private Health Insurance [facility] [id number] 1.2.840.789588.1.13.239.2 .7.3.636999.315 1949 Unknown [id number] 2.16.840.1.537927.3.579.2 .593 1949 Unknown [id number] 2.16.840.1.908543.3.579.2 .593 1949 Unknown [id number] 2.16.840.1.823487.3.579.2 .593 1949 Unknown [id number] 2.16.840.1.339229.3.579.2 .593 1949 Unknown [id number] 2.16.840.1.110798.3.579.2 .593 1949 Unknown [id number] 2.16.840.1.517175.3.579.2 .59 1949 Unknown [id number] 2.16.840.1.962234.3.579.2 .593 1949 Unknown [id number] 2.16.840.1.312727.3.579.2 .59 1949 Unknown [id number] 2.16.840.1.832539.3.579.2 .593 1949 Unknown [id number] 2.16.840.1.131134.3.579.2 .593 1949 Unknown [id number] 2.16.840.1.198227.3.579.2 .593 1949 Unknown [id number] 2.16.840.1.152657.3.579.2 .593 1949 Unknown [id number] 2.16.840.1.234953.3.579.2 .593 1949 Unknown [id number] 2.16.840.1.891330.3.579.2 .1949 Unknown [id number] 2.16.840.1.183933.3.579.2 .593 1949 Unknown [id number] 2.16.840.1.585617.3.579.2 .593 1949 Unknown [id number] 2.16.840.1.358476.3.579.2 .593 1949 Unknown [id number] 2.16.840.1.951436.3.579.2 .593 1949 Unknown [id number] 2.16.840.1.917031.3.579.2 .593 1949 Unknown [id number] 2.16.840.1.644032.3.579.2 .727 1949 Unknown [id number] 2.16.840.1.411007.3.579.2 .727 1949 Unknown [id number] 2.16.840.1.107528.3.579.2 .727 1949 Unknown [id number] 2.16.840.1.769995.3.579.2 .727 1949 Unknown [id number] 2.16.840.1.108962.3.579.2 .727 1949 Unknown [id number] 2.16.840.1.253703.3.579.2 .718 1949 Unknown [id number] 2.16.840.1.584535.3.579.2 .718 1949 Unknown [id number] 2.16.840.1.951461.3.579.2 .732 1949 Unknown [id number] 2.16.840.1.456227.3.579.2 .732 1949 Unknown [id number] 2.16.840.1.506786.3.579.2 .732 1949 Unknown [id number] 2.16.840.1.656094.3.579.2 .732 1949 Unknown [id number] 2.16.840.1.606685.3.579.2 .732 1949 Unknown [id number] 2.16.840.1.460307.3.579.2 .732 1949 Unknown [id number] 2.16.840.1.705358.3.579.2 .732 1949 Unknown [id number] 2.16.840.1.395963.3.579.2 .196 1949 Unknown [id number] 2.16.840.1.007089.3.579.2 .196 1949 Unknown [id number] 2.16.840.1.103842.3.579.2 .196 1949 Unknown [id number] 2.16.840.1.893090.3.579.2 .196 1949 Unknown [id number] 2.16.840.1.043629.3.579.2 .594 1949 Unknown [id number] 2.16.840.1.169141.3.579.2 .594 1949 Unknown [id number] 2.16.840.1.622228.3.579.2 .594 1949 Unknown [id number] 2.16.840.1.397216.3.579.2 .594 1949 Unknown [id number] 2.16.840.1.935578.3.579.2 .173 1949 Unknown [id number] 2.16.840.1.398458.3.579.2 .173 1949 Unknown [id number] 2.16.840.1.143941.3.579.2 .173 1949 Unknown [id number] 2.16.840.1.596646.3.579.2 .1286 1949 Unknown [id number] 2.16.840.1.746741.3.579.2 .1286 1949 Unknown [id number] 2.16.840.1.597600.3.579.2 .1286 1949 Unknown [id number] 2.16.840.1.542242.3.579.2 .1286 1949 Unknown [id number] 2.16.840.1.725951.3.579.2 .1258 1949 Unknown [id number] 2.16.840.1.578386.3.579.2 .1258 1949 Unknown [id number] 2.16.840.1.379896.3.579.2 .1258 1949 Unknown [id number] 2.16.840.1.931854.3.579.2 .1258 1949 Unknown [id number] 2.16.840.1.833090.3.579.2 .1258 1949 Unknown [id number] 2.16.840.1.770840.3.579.2 .1258 1949 Unknown [id number] 2.16.840.1.895659.3.579.2 .1258 1949 Unknown [id number] 2.16.840.1.085200.3.579.2 .1259 Private Health Insurance [id number] 2.16840.1.844977.3.441 Unknown [id number] 2.16840.1.312773.3.441 Unknown [id number] 2.16840.1.612499.3.441 Social History Date Type Detail Facility Start: Denies ETOH use [employer] [facility] Start: 01-06-2019 End: 03-15-2023 Former smoker [employer] [facility] Start: 05-24-1966 End: 05-24-1974 History of tobacco use Current smoker [place], [place] Start: 05-24-1966 End: 05-24-1974 History of tobacco use Cigarette Smoker [place] Start: 01-06-2019 End: 06-20-2024 Cigarettes smoked current (pack per day) - Reported [facility] Start: 01-06-2019 End: 01-28-2025 Alcohol intake No [facility] Start: 03-24-2016 End: 01-20-2022 Tobacco Comment smoked socially on occassion until 1999 [place], [place] Start: 04-07-2016 Alcohol Comment social [place] Start: 1950 Sex Assigned At Not on file [place] Start: 2019 Alcohol intake Current non-drinker of alcohol (finding) [place] Start: 08-29-2019 History SDOH Financial 5 [place] Start: 08-29-2019 End: 03-18-2021 History SDOH Food Worry 1 [place], [place] Start: 08-29-2019 End: 03-18-2021 History SDOH Transport Med 2 [place], [place] Start: 1950 Sex Assigned At Female [place] Exposure to SARS-CoV -2 (event) Unable to assess [place] Start: 04-03-2015 End: 03-15-2023 Tobacco use and exposure Smokeless tobacco non-user [employer] Phone: Start: 07-23-2021 End: 08-05-2021 Alcohol intake Current drinker of alcohol (finding) [employer] Phone: Start: 03-11-2020 History SDOH Alcohol Std Drinks 98 [employer] Phone: Start: 03-18-2021 History SDOH Social Connections Phone 3 [employer] Phone: Start: 03-18-2021 History SDOH Social Connections Living 7 [employer] Phone: Start: 03-18-2021 History SDOH Physical Activity DPW 0 [employer] Phone: Start: 03-18-2021 History SDOH Financial 4 [employer] Phone: Start: 2021 End: 10-30-2021 Exposure to SARS-CoV-2 (event) Not sure [employer] Phone: Start: 11-18-2021 End: 06-20-2024 Alcohol intake Ex-drinker (finding) [employer] Work Phone: Tobacco smoking status No Smokin g Status Entered [facility] Tobacco smoking stat [facility] Tobacco smoking consumption unknown [facility] Start: 10-18-2019 Gender identity Identifies as female gender (finding) [facility] Start: 10-18-2019 Sexual orientation Heterosexual (finding) [facility] Within the last year , have you been afraid of your partner or ex-partner? No [facility] Do you belong to any clubs or organizations such as anabaptism groups, unions, fraternal or athletic groups, or school groups? Yes [facility] Are you now , , , , never or living with a partner? Never [facility] How hard is it for y ou to pay for the very basics like food, housing, medical care, and heating Somewhat hard [facility] Do you feel stress - tense, restless, nervous, or anxious, or unable to sleep at night because your mind is troubled all the time - these days [OSQ] To some extent [facility] (I/We) worried wheth er (my/our) food would run out before (I/we) got money to buy more. Never true [facility] In the past 12 month s, has lack of transportation kept you from medical appointments or from getting medications? No [facility] Start: 09-29-2022 Education 18 [facility] Start: 03-15-2023 Alcohol Comment caffeine intake: 1-2 cups per day [facility] How often to you hav e a drink containing alcohol? Never [facility] [employer] Start: 04-15-2015 End: 09-23-2022 Sex Female (finding) [facility] Procedure Code Equipment Code Equipment Origin al Text Equipment Identifier Dates Kit Lead Sure Sc an Interstim Mri - [id number] Start: 08-05-2021 Generator Neurostimulator [id number] [employer]in [employer]rn[employer] Prod - [id number] Start: 08-05-2021 Comment on above: Description: PIN# [id number] Plate 7mm In-Tiffanie e Shelf Ea1 1102.3007 - [id number] Start: 03-31-2023 Screw 2.6 X 6mm Self-Drilling Ea1 1102.6006 - [id number] Start: 03-31-2023 Screw 2.6 X 4mm Self-Drilling Ea1 1102.6004 - [id number] Start: 03-31-2023 Goals Date Patient Goal Desired Activity /State Personal health goal Comment on above: Formatting of this n ote might be different from the original. Evaluation of progress towards goal: Plan to return home. Functional Status Date Assessment Result Facility 09-30-2024 Total score [AUDIT-C] 0 10/01/19 9:47 AM EDT Kristine Sotomayor RN [facility] 09-30-2024 Humiliation, Afraid, Rape, and Kick questionnaire [HARK] [facility] 11-10-2022 Functional Status N/A [facility] 06-16-2022 Functional Status N/A [facility] 05-19-2022 Functional Status N/A [facility] Clinical Notes 07-23-2021 to 10-11-2024 Telephone Encounter - Anjelica Holland MD - 10/11/2024 2:41 PM EDTTelephone Encounter - Anjelica Holland MD - 10/11/2024 2:41 PM EDTSandres Melendez MD - 10/03/2024 12:21 PM EDTDischarge Instructions Note Date & Type Note Facility 10-11-2024 Miscellaneous Notes I spoke to the patient's PCP Dr Eller, she has been doing fine since discharge with no symptoms at all concerning for symptomatic cholelithiasis or acute cholecystitis. Patient does not want to make the trip up here to see me for evaluation of this. I think as long as she is asymptomatic that is fine and we will cancel the appointment scheduled for Tuesday 10/17. If patient has any issues in the future she or Dr. Eller will reach out. documented in this encounter [facility] 10-11-2024 Telephone encounter Note I spoke to the patient's PCP Dr Eller, she has been doing fine since discharge with no symptoms at all concerning for symptomatic cholelithiasis or acute cholecystitis. Patient does not want to make the trip up here to see me for evaluation of this. I think as long as she is asymptomatic that is fine and we will cancel the appointment scheduled for Tuesday 10/17. If patient has any issues in the future she or Dr. Eller will reach out. [facility] Work Phone: 10-03-2024 Hospital course Narrative Inpatient Discharge Summary BRIEF OVERVIEW Admitting Provider: Lisbet Brush MD Discharge Provider: Juice Melendez M.D Primary Care Physician at Discharge: No primary care provider on file. None Admission Date: 09/29/2024 Discharge Date: 10/04/2023 Primary Discharge Diagnosis Acute upper GI bleed, melena with Hx/o GAVE s/p plans for EGD portal hypertensive gastropathy, erosive gastropathy with no active bleeding no varices or evidence of significant GAVE. Secondary Discharge Diagnosis Acute blood loss anemia secondary to above, s/p 2 units pRBC at sending hospital with underlying iron deficiency anemia. Hypovolemic shock in settings of acute blood loss anemia. Gallbladder distension with cholelithiasis and sludge CBD 1.3 cm on CTA abdomen [facility] pelvis at [facility] 09/28/2024. Transient abdominal pain most likely related to liver biopsy. Pancytopenia in settings of liver cirrhosis. Discharge Disposition Home. Outpatient Follow-Up Follow-up with PCP within 1-2 weeks with CBC, CMP. Follow-up with Hepatobiliary surgery as scheduled per them. Follow-up with liver biopsy results/GI at [facility] as previously scheduled. DETAILS OF HOSPITAL STAY Presenting Problem/History of Present Illness GI bleed [K92.2] Hospital Course Patient is a 73-year-old female with known Hx/o primary biliary cirrhosis s/p liver biopsy 09/20/24 at [facility], GAVE, DM2, HTN, GERD presented to [place] ER with abdominal pain and dark stools was transferred to [facility] for GI evaluation, initially admitted to ICU in view of hypotension once stabilized was transferred to [facility] as primary on 10/02/2024. 1. Acute upper GI bleed, melena with Hx/o GAVE s/p plans for EGD portal hypertensive gastropathy, erosive gastropathy with no active bleeding no varices or evidence of significant GAVE. Outpatient follow-up with Gastroenterology as scheduled per them. Protonix 40 mg IV b.i.d switched to p.o. on discharge Hemoglobin stable at the time of discharge. Discontinue Mobic. 2. Acute blood loss anemia secondary to above, s/p 2 units pRBC at sending hospital with underlying iron deficiency anemia. Monitor H&H, transfuse if hemoglobin less than 7. Ferrous sulfate 325 mg p.o. daily. 3. Hypovolemic shock in settings of acute blood loss anemia. Resolved, off pressor support. Reinitiate it on Coreg on discharge but continue to hold Hyzaar till follow-up with PCP, can consider re-initiation if blood pressures are elevated. 4. Gallbladder distension with cholelithiasis and sludge CBD [facility] Appreciate hepatobiliary follow-up with plans for outpatient follow-up for evaluation for cholecystectomy. 5. Transient abdominal pain most likely related to liver biopsy. Monitor, presently is pain-free. 6. Pancytopenia in settings of cirrhosis. Normal vitamin B12, folate levels. Follow-up with PCP. 7. Hepatic cirrhosis with postal hypertension on CTA A/P 08/29/2024. Outpatient follow-up with GI at [facility] as scheduled. 8. Diabetes mellitus type 2 controlled with hyperglycemia. HbA1c of 6.3 likely falsely low in settings of anemia. Correctional NovoLog settings site coverage. Metformin discontinued in view of liver cirrhosis with increased chances for lactic acidosis. Initiated on Januvia 25 mg p.o. daily Outpatient follow-up with PCP in regard to up titration of Januvia +/- SGLT2 inhibitors. 9. Hx/o HLD. Reinitiate statins on discharge. 10. DVT prophylaxis. EPC's. No chemical prophylaxis in settings of GI bleed. Rest of medical issues were stable during the course of hospitalization. CODE STATUS: FULL CODE. Consults, Imaging, Operative Procedures Performed Gastroenterology consult. Hepatobiliary surgery consult. EGD: Impression: - Normal esophagus. - Z-line regular, [...] a recent colonoscopy. - Follow-up with primary construction recruiter at [facility] for further management of underlying liver disease. Physical Exam at Discharge Discharge Condition: good Pulse: 76 Resp: 21 BP: 143/61 Temp: 37.6 C (99.7 F) Weight: 72.6 kg (160 lb) GENERAL: patient awake oriented x 3, does not appear in distress. HEENT: pale, no icterus, NECK: supple, CVS: s1,s2 heard no murmurs, rubs or gallops RESPIRATORY: B/l airway entry with no crackles or wheezing ABDOMINAL: soft non tender, non distended with bowel sounds heard, EXTREMITIES: no pedal edema with peripheral pulses palpable NEURO: strength 5/5 all 4 extremities, SKIN: no rashes appreciated PLEASE REFER TO DISCHARGE MEDICATION RECONCILIATION SHEET FOR MEDS AT DISCHARGE. DIET at DISCHARGE: ADA 1800 calories diet. DISCHARGE TIME: 38 minutes This note was completed using a voice economic geographer system. Every effort was made to ensure accuracy. However, inadvertent computerized economic geographer errors may be present. documented in this encounter [facility] 10-03-2024 History of Present illness Narrative [facility] Gastroenterology/Hepatology Progress Note IDENTIFYING DATA PATIENT: Ashlee Banerjee ADMIT DATE: 09/29/2024 TIME OF EVALUATION: 10/03/2024 11:11 AM HOSPITAL STAY: LOS: 4 days REASON FOR HOSPITALIZATION: SUBJECTIVE/INTERVAL HISTORY Ashlee Banerjee's events from the last 12-24 hours were reviewed. She has no further abdominal pain. Had a dark brown stool today. Tells me plan is for discharge and she is going to follow-up with her construction recruiter in [place], Dr. Patnio.. OBJECTIVE MEDICATIONS SCHEDULED: ferrous sulfate, 325 mg, oral, Daily with breakfast insulin lispro, 1-4 Units, subcutaneous, Nightly insulin lispro, 1-5 Units, subcutaneous, TID with meals levothyroxine, 100 mcg, oral, Daily loratadine, 10 mg, oral, Daily pantoprazole, 40 mg, intravenous, Q12H sodium chloride, 10 mL, intravenous, Q8H AND sodium chloride, 10 mL, intravenous, PRN AND sodium chloride, 20 mL, intravenous, PRN ursodioL, 500 mg, oral, BID PRNs: artificial tears(hypromellose), 2 drop, PRN calcium gluconate, 1,000 mg, PRN Or calcium gluconate, 2,000 mg, PRN Or calcium gluconate, 3,000 mg, PRN dextrose, 15 g, PRN dextrose 50 % in water (D50W), 25 mL, PRN fentaNYL, 50 mcg, Q2H PRN Or fentaNYL, 25 mcg, Q2H PRN glucagon (human recombinant), 1 mg, PRN hydrALAZINE, 10 mg, Q6H PRN magnesium sulfate, 2,000 mg, PRN Or magnesium sulfate, 4,000 mg, PRN potassium chloride, 20-40 mEq, PRN Or potassium chloride, 20-40 mEq, PRN potassium chloride in water, 10 mEq, PRN Or potassium chloride in water, 10 mEq, PRN sodium chloride, 10 mL, PRN And sodium chloride, 20 mL, PRN ALLERGIES: Allergies Allergen Reactions Cyclobenzaprine Morphine Nickel Penicillins Sulfites Physical VITALS: BP 143/61 Pulse 76 Temp 37.6 C (99.7 F) (Oral) Resp 21 Ht 154.9 cm (5' 1 ) Wt 72.6 kg (160 lb) SpO2 100% BMI 30.23 kg/m GEN: alert and oriented x3, NAD, up in chair ABD: soft, non-tender, non-distended LABS AND IMAGING CBC: Lab Results Component Value Date WBC 3.4 (L) 10/03/2024 HGB 9.1 (L) 10/03/2024 HCT 26.8 (L) 10/03/2024 MCV 88 10/03/2024 PLT 99 (L) 10/03/2024 BMP: Lab Results Component Value Date GLU 245 (H) 10/03/2024 CALCIUM 8.2 (L) 10/03/2024 SODIUM 139 10/03/2024 K 4.2 10/03/2024 CO2 22 10/03/2024 BUN 22 10/03/2024 CREATININE 0.90 10/03/2024 IMAGING: EGD Report Result Date: 10/02/2024 Findings: The examined esophagus was normal. The [...] a recent colonoscopy. - Follow-up with primary construction recruiter at [facility] for further management of underlying liver disease. NM HEPATOBILIARY SCAN W EJECTION FRACTION Result Date: 09/29/2024 Narrative: EXAMINATION: NUCLEAR MEDICINE HEPATOBILIARY SCINTIGRAPHY (HIDA SCAN). [...] seen. No enterogastric bile reflux is noted. Impression: Nonvisualization of the gallbladder taken out to 2 hours. The findings could represent either acute cholecystitis or chronic cholecystitis. No enterogastric bile reflux ASSESSMENT AND PLAN Ashlee Banerjee is a 73 y.o. female with a PMH of HTN, PBC, cirrhosis, GAVE admitted as a transfer from [facility] with GI bleed after presenting with upper abdominal discomfort and recent melena. At [facility] she was hypotensive requiring vasopressors. 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 Jun Nickerson, [facility] [place] [id number] PH: [phone] ALEXANDER Sosa 10/03/24 0052 Principal Problem: GI bleed Chief Complaint: 1 bowel movement with dark stools yesterday ASSESSMENT AND PLAN: Patient is a 73-year-old female with known Hx/o primary biliary cirrhosis s/p liver biopsy 09/20/24 at [facility], GAVE, DM2, HTN, GERD presented to [place] ER with abdominal pain and dark stools was transferred to [facility] for GI evaluation, initially admitted to ICU in view of hypotension once stabilized was transferred to [facility] as primary on 10/02/2024. 1. Acute upper GI bleed, melena with Hx/o GAVE s/p plans for EGD today. Appreciate GI follow-up. Protonix 40 mg IV b.i.d. Dark stools yesterday, monitor H&H 2. Acute blood loss anemia secondary to above, s/p 2 units pRBC at sending hospital rule out underlying nutritional deficiencies Monitor H&H, transfuse if hemoglobin less than 7. Check iron panel, vitamin B12, folate, TSH. 3. Hypovolemic shock in settings of acute blood loss anemia. Resolved, off pressor support. Holding home regimen of Coreg/losartan/HCTZ. 4. Gallbladder distension with cholelithiasis and sludge CBD 1.3 cm on CTA abdomen and pelvis at [facility] 09/28/2024. Appreciate hepatobiliary follow-up with plans for outpatient follow-up for evaluation for cholecystectomy. 5. Transient abdominal pain most likely related to liver biopsy. Monitor, presently is pain-free. 6. Pancytopenia in settings of cirrhosis. Monitor. Check vitamin B12, folate levels. 7. Hepatic cirrhosis with postal hypertension on CTA A/P 08/29/2024. Appreciate GI follow-up. 8. Diabetes mellitus type 2 controlled with hyperglycemia. HbA1c of 6.3 likely falsely low in settings of anemia. Discontinue metformin in settings of liver cirrhosis, correctional NovoLog settings site coverage 9. Hx/o HLD. Reinitiate statins on discharge. 10. DVT prophylaxis. EPC's. No chemical prophylaxis in settings of GI bleed. Rest of medical issues are stable. CODE STATUS: FULL CODE. DISCHARGE DISPOSITION: Home likely in 24-48 hours pending stabilization of hemoglobin, EGD evaluation. Dietary Orders (From admission, onward) Start Ordered 10/02/24 0001 Adult diet NPO Diet effective midnight Question: Diet Type: Answer: NPO 10/01/24 1157 SUBJECTIVE: Patient awake oriented x3 does not appear to be in distress, denies any further episodes of abdominal pain but mentions had 1 episode of loose stools yesterday which was dark but no hematochezia. Denies chest pain, shortness of breath, no fever or chills, no nausea and vomiting, seen earlier this morning was NPO with plans for EGD. OBJECTIVE Vitals: 10/02/24 0700 BP: 140/60 Pulse: 68 Resp: 13 Temp: SpO2: 97% PHYSICAL EXAM: GENERAL: patient awake oriented x 3, does not appear in distress. HEENT: pale, no icterus, NECK: supple, CVS: s1,s2 heard no murmurs, rubs or gallops RESPIRATORY: B/l airway entry with no crackles or wheezing ABDOMINAL: soft non tender, non distended with bowel sounds heard, EXTREMITIES: no pedal edema with peripheral pulses palpable NEURO: strength 5/5 all 4 extremities, SKIN: no rashes appreciated Recent Results (from the past 24 hours) Ionized magnesium Collection Time: 10/01/24 10:56 AM Result Value Ref Range IONIZED MAGNESIUM 0.57 0.45 - 0.74 mmol/L Hemoglobin and hematocrit, blood Collection Time: 10/01/24 10:56 AM Result Value Ref Range Hemoglobin 9.6 (L) 11.7 - 15.5 g/dL Hematocrit 28.6 (L) 35 - 47 % Hemoglobin and hematocrit, blood Collection Time: 10/01/24 5:53 PM Result Value Ref Range Hemoglobin 9.4 (L) 11.7 - 15.5 g/dL Hematocrit 27.9 (L) 35 - 47 % CBC auto differential Collection Time: 10/02/24 2:27 AM Result Value Ref Range WBC 3.5 (L) 4 - 11 x10E9/L RBC Count 3.01 (L) 3.8 - 5.2 X10E12/L Hemoglobin 9.1 (L) 11.7 - 15.5 g/dL Hematocrit 26.5 (L) 35 - 47 % MCV 88 80 - 100 fL MCH 30.1 27 - 34 pg MCHC 34.3 32 - 36 g/dL RDW 15.3 (H) 11.5 - 15 % Platelet Count 97 (L) 150 - 450 X10E9/L MPV 9.1 7 - 12 fL Neutrophils Relative 60.7 % Lymphocytes Relative 21.4 % Monocytes Relative 12.6 % Eosinophils Relative 4.6 % Basophils Relative 0.7 % Neutrophils Absolute (A) 2.1 1.5 - 6.6 10*3/uL Lymphocytes Absolute 0.7 (L) 1.0 - 3.5 10*3/uL Monocytes Absolute 0.4 0.0 - 0.9 10*3/uL Eosinophils Absolute 0.2 0.0 - 0.4 10*3/uL Basophils Absolute 0.0 0.0 - 0.2 10*3/uL Differential Type AUTOMATED DIFFERENTIAL Comprehensive metabolic panel Collection Time: 10/02/24 2:27 AM Result Value Ref Range SODIUM 141 134 - 146 mmol/L POTASSIUM 4.2 3.5 - 5.0 mmol/L CHLORIDE 113 (H) 98 - 109 mmol/L CARBON DIOXIDE 20 (L) 22 - 32 mmol/L ANION GAP 8 5 - 15 mmol/L BLOOD UREA NITROGEN 28 (H) 5 - 27 mg/dL CREATININE 0.97 0.40 - 1.00 mg/dL GLUCOSE 215 (H) 65 - 99 mg/dL CALCIUM 8.3 (L) 8.5 - 10.5 mg/dL TOTAL PROTEIN 5.4 (L) 6.0 - 8.0 g/dL ALBUMIN 2.9 (L) 3.2 - 5.3 g/dL ALKALINE PHOSPHATASE 119 39 - 130 U/L AST 30 <=41 U/L ALT 28 <=31 U/L BILIRUBIN,TOTAL 0.6 0.3 - 1.2 mg/dL EGFR Non-Race Dependent 61 >=60 ml/min/1.73sq.m Magnesium Collection Time: 10/02/24 2:27 AM Result Value Ref Range MAGNESIUM 1.8 1.8 - 2.6 mg/dL MICROBIOLOGY: Microbiology Results No results found for the last 168 hours. EGD: Pending. SCHEDULED MEDICATIONS: levothyroxine, 100 mcg, oral, Daily pantoprazole, 40 mg, intravenous, Q12H sodium chloride, 10 mL, intravenous, Q8H AND sodium chloride, 10 mL, intravenous, PRN AND sodium chloride, 20 mL, intravenous, PRN P.R.N. MEDICATIONS: calcium gluconate OR calcium gluconate OR calcium gluconate dextrose dextrose 50 % in water (D50W) fentaNYL OR fentaNYL glucagon (human recombinant) hydrALAZINE magnesium sulfate OR magnesium sulfate potassium chloride OR potassium chloride potassium chloride in water OR potassium chloride in water sodium chloride AND sodium chloride AND sodium chloride This note was completed using a voice economic geographer system. Every effort was made to ensure accuracy. However, inadvertent computerized economic geographer errors may be present. HEPATOBILIARY, PANCREAS & ENDOCRINE SURGERY PROGRESS NOTE Principal Problem: GI bleed LOS: 2 days Subjective Interval History: No overnight events. No more melena. Tolerating p.o.. No abdominal pain. Objective Vital signs in last 24 hours: Temp: [36.4 C (97.5 F)-37.1 C (98.8 F)] 36.4 C (97.5 F) Pulse: [63-78] 70 Resp: [15-24] 18 BP: (116-169)/(58-85) 159/66 SpO2: [95 %-100 %] 99 % O2 Device: None (Room air) Intake/Output this shift: No intake/output data recorded. Labs: Recent Results (from the past 24 hours) Hemoglobin and hematocrit, blood Collection Time: 09/30/24 5:13 PM Result Value Ref Range Hemoglobin 9.7 (L) 11.7 - 15.5 g/dL Hematocrit 28.4 (L) 35 - 47 % Hemoglobin and hematocrit, blood Collection Time: 09/30/24 8:55 PM Result Value Ref Range Hemoglobin 9.1 (L) 11.7 - 15.5 g/dL Hematocrit 26.8 (L) 35 - 47 % CBC auto differential Collection Time: 10/01/24 3:09 AM Result Value Ref Range WBC 3.5 (L) 4 - 11 x10E9/L RBC Count 2.99 (L) 3.8 - 5.2 X10E12/L Hemoglobin 8.9 (L) 11.7 - 15.5 g/dL Hematocrit 26.3 (L) 35 - 47 % MCV 88 80 - 100 fL MCH 29.9 27 - 34 pg MCHC 34.0 32 - 36 g/dL RDW 15.7 (H) 11.5 - 15 % Platelet Count 86 (L) 150 - 450 X10E9/L MPV 9.6 7 - 12 fL Neutrophils Relative 61.5 % Lymphocytes Relative 23.0 % Monocytes Relative 10.4 % Eosinophils Relative 4.4 % Basophils Relative 0.7 % Neutrophils Absolute (A) 2.1 1.5 - 6.6 10*3/uL Lymphocytes Absolute 0.8 (L) 1.0 - 3.5 10*3/uL Monocytes Absolute 0.4 0.0 - 0.9 10*3/uL Eosinophils Absolute 0.2 0.0 - 0.4 10*3/uL Basophils Absolute 0.0 0.0 - 0.2 10*3/uL Differential Type AUTOMATED DIFFERENTIAL Comprehensive metabolic panel Collection Time: 10/01/24 3:09 AM Result Value Ref Range SODIUM 140 134 - 146 mmol/L POTASSIUM 4.1 3.5 - 5.0 mmol/L CHLORIDE 114 (H) 98 - 109 mmol/L CARBON DIOXIDE 19 (L) 22 - 32 mmol/L ANION GAP 7 5 - 15 mmol/L BLOOD UREA NITROGEN 37 (H) 5 - 27 mg/dL CREATININE 1.09 (H) 0.40 - 1.00 mg/dL GLUCOSE 125 (H) 65 - 99 mg/dL CALCIUM 8.4 (L) 8.5 - 10.5 mg/dL TOTAL PROTEIN 5.2 (L) 6.0 - 8.0 g/dL ALBUMIN 2.9 (L) 3.2 - 5.3 g/dL ALKALINE PHOSPHATASE 113 39 - 130 U/L AST 30 <=41 U/L ALT 32 (H) <=31 U/L BILIRUBIN,TOTAL 0.9 0.3 - 1.2 mg/dL EGFR Non-Race Dependent 53 (L) >=60 ml/min/1.73sq.m Magnesium Collection Time: 10/01/24 3:09 AM Result Value Ref Range MAGNESIUM 1.8 1.8 - 2.6 mg/dL Ionized magnesium Collection Time: 10/01/24 10:56 AM Result Value Ref Range IONIZED MAGNESIUM 0.57 0.45 - 0.74 mmol/L Hemoglobin and hematocrit, blood Collection Time: 10/01/24 10:56 AM Result Value Ref Range Hemoglobin 9.6 (L) 11.7 - 15.5 g/dL Hematocrit 28.6 (L) 35 - 47 % Imaging: No results found. Physical Exam: Physical Exam Vitals reviewed. Constitutional: Appearance: Normal appearance. HENT: Head: Normocephalic and atraumatic. Eyes: General: No scleral icterus. Cardiovascular: Rate and Rhythm: Normal rate and regular rhythm. Pulses: Normal pulses. Heart sounds: Normal heart sounds. Pulmonary: Effort: Pulmonary effort is normal. Abdominal: General: There is no distension. Palpations: Abdomen is soft. Tenderness: There is no abdominal tenderness. There is no guarding or rebound. Skin: Capillary Refill: Capillary refill takes less than 2 seconds. Coloration: Skin is not jaundiced or pale. Neurological: General: No focal deficit present. Mental Status: She is alert and oriented to person, place, and time. Psychiatric: Mood and Affect: Mood normal. Behavior: Behavior normal. Assessment/Plan Ashlee Banerjee is a 73 y.o.female with past medical history of primary biliary cirrhosis s/p recent transjugular liver biopsy who was admitted on 09/29/2024 for concern for upper GI bleed. Imaging reports reviewed, however images from OSH are currently not in our system. 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 Plan: Patient with distended GB with cholelithiasis/sludge, but clinically asymptomatic from this process. Will delay cholecystectomy evaluation to outpatient. GI team consulted, note plans for EGD All other care and workup per primary and other consulting teams Will follow while inpatient. [facility] Gastroenterology/Hepatology Progress Note IDENTIFYING DATA PATIENT: Ashlee Banerjee ADMIT DATE: 09/29/2024 TIME OF EVALUATION: 10/01/2024 11:55 AM HOSPITAL STAY: LOS: 2 days SUBJECTIVE/INTERVAL HISTORY Patient reports that she is doing well. No episodes of melena or hematochezia. No hematemesis. No abdominal pain. Her hemoglobin seems to be stable with most recent hemoglobin is 8.9 OBJECTIVE MEDICATIONS SCHEDULED: No current facility-administered medications on file prior to encounter. Current Outpatient Medications on File Prior to Encounter Medication Sig Dispense Refill acetaminophen (TYLENOL EXTRA STRENGTH) 500 mg tablet Take 2 tablets (1,000 mg total) by mouth every 6 (six) hours as needed. atorvastatin (LIPITOR) 20 mg tablet Take 1 tablet (20 mg total) by mouth in the morning. calcium carbonate (OS-TIP) 600 mg elemental (1,500 mg) tablet Take 1 tablet (600 mg total) by mouth daily with breakfast. carboxymethylcellulose sodium (THERATEARS OPHT) Administer 2 drops to both eyes daily as needed. carvediloL (COREG) 25 mg tablet Take 1 tablet (25 mg total) by mouth in the morning and 1 tablet (25 mg total) in the evening. Take with meals. cetirizine (ZyrTEC) 10 mg tablet Take 1 tablet (10 mg total) by mouth in the morning. cholecalciferol 1,000 units tablet Take 1 tablet (1,000 Units total) by mouth in the morning and at bedtime. clindamycin (CLEOCIN) 150 mg capsule Take 1 capsule (150 mg total) by mouth. cycloSPORINE (RESTASIS) 0.05 % ophthalmic emulsion Administer 1 drop to both eyes in the morning and 1 drop before bedtime. docosahexaenoic acid (EXPECTA LIPIL) 200 mg capsule Take 1 capsule (200 mg total) by mouth in the morning. hydroCHLOROthiazide (HYDRODIURIL) 12.5 mg tablet Take 1 tablet (12.5 mg total) by mouth daily. HYDROcodone-acetaminophen (NORCO) 5-325 mg per tablet Take 1 tablet by mouth every 8 (eight) hours as needed. levothyroxine (SYNTHROID, LEVOTHROID) 100 MCG tablet Take 1 tablet (100 mcg total) by mouth in the morning. metFORMIN (GLUCOPHAGE) 500 mg tablet Take 1 tablet (500 mg total) by mouth in the morning and 1 tablet (500 mg total) in the evening. Take with meals. MOBIC 15 mg tablet Take 1 tablet (15 mg total) by mouth in the morning. omeprazole (PriLOSEC) 40 mg capsule Take 1 capsule (40 mg total) by mouth every morning before breakfast. triamcinolone (NASACORT) 55 mcg nasal inhaler Administer 1 spray into each nostril in the morning. ubidecarenone (coenzyme Q10) 60 mg capsule Take 1 tablet by mouth in the morning. ursodioL (MIHAI FORTE) 500 mg tablet Take 1 tablet (500 mg total) by mouth in the morning and 1 tablet (500 mg total) before bedtime. valsartan (DIOVAN) 320 mg tablet Take 1 tablet (320 mg total) by mouth in the morning. PRNs: calcium gluconate, 1,000 mg, PRN Or calcium gluconate, 2,000 mg, PRN Or calcium gluconate, 3,000 mg, PRN dextrose, 15 g, PRN dextrose 50 % in water (D50W), 25 mL, PRN fentaNYL, 50 mcg, Q2H PRN Or fentaNYL, 25 mcg, Q2H PRN glucagon (human recombinant), 1 mg, PRN hydrALAZINE, 10 mg, Q6H PRN magnesium sulfate, 2,000 mg, PRN Or magnesium sulfate, 4,000 mg, PRN potassium chloride, 20-40 mEq, PRN Or potassium chloride, 20-40 mEq, PRN potassium chloride in water, 10 mEq, PRN Or potassium chloride in water, 10 mEq, PRN sodium chloride, 10 mL, PRN And sodium chloride, 20 mL, PRN ALLERGIES: Allergies Allergen Reactions Cyclobenzaprine Morphine Nickel Penicillins Sulfites Physical VITALS: BP 159/66 Pulse 70 Temp 36.4 C (97.5 F) Resp 18 Ht 154.9 cm (5' 1 ) Wt 74.5 kg (164 lb 4.8 oz) SpO2 99% BMI 31.04 kg/m GEN: alert and oriented x3, Patient is not in distress CV: RRR PULM: No respiratory distress Neurological: Alert, Ox3 LABS AND IMAGING Results from last 7 days Lab Units 10/01/24 1056 10/01/24 0309 09/30/245 09/30/24 1713 09/30/24 0949 09/30/24 0323 09/29/24 2032 WBC x10E9/L -- 3.5* -- -- 3.5* -- 4.0 HEMOGLOBIN g/dL 9.6* 8.9* 9.1* < > 8.9* < > 8.3* HEMATOCRIT % 28.6* 26.3* 26.8* < > 26.2* < > 24.4* PLATELETS X10E9/L -- 86* -- -- 71* -- 61* < > = values in this interval not displayed. Results from last 7 days Lab Units 09/29/242031 INR 1.4* Lab Results Component Value Date GLU 125 (H) 10/01/2024 CALCIUM 8.4 (L) 10/01/2024 K 4.1 10/01/2024 CO2 19 (L) 10/01/2024 BUN 37 (H) 10/01/2024 CREATININE 1.09 (H) 10/01/2024 Lab Results Component Value Date ALT 32 (H) 10/01/2024 AST 30 10/01/2024 ALKPHOS 113 10/01/2024 No results found for: LIPASE IMAGING: No results found. ASSESSMENT AND PLAN Ashlee Banerjee is a 73 y.o. woman with past medical history significant for hypertension, biopsy-proven primary biliary cholangitis with advanced fibrosis/cirrhosis based on transjugular liver biopsy biopsy done on September 20, 2024 at [facility] (pathology showed changes compatible with PVC and stage 3-4 fibrosis), history of GAVE on EGD that was performed on the week of August (this is per patient history, this was done at [facility] and no records are available. Patient presented with of melena the day after her liver biopsy associated with upper abdominal discomfort. Patient reports that she never had melena before this. She was found to have hemoglobin of 6.8 with some hypotension. She received 2 units of packed red blood cells with significant improvement in hemoglobin up to 8.3 this morning. Patient denies any melena for the last 3 days. Her abdominal pain seems to have subsided. The differential diagnosis for her melena includes; hemobilia secondary to her liver biopsy, bleeding from GAVE Her hemoglobin continues to be stable. No recurrence of melena since admission. Hemodynamically she has been stable. I discussed with her proceeding with EGD tomorrow. [place] [address] PH: [phone] Images from the original note were not included. [facility] Progress Note Name: Ashlee Banerjee Age: 73 y.o. Date: 10/01/24 Length of Stay 2 day(s) ASSESSMENT Acute upper GI bleed, melena Acute blood loss anemia secondary to above, s/p 2 units pRBC at [facility] Primary biliary cirrhosis Recent liver biopsy 09/20/2024 at [facility] History of GAVE Hypovolemic shock, resolved - off vasopressors Right-sided abdominal pain Gallbladder distension with cholelithiasis and sludge CBD 1.3 cm on CTA abdomen and pelvis at [facility] 09/28/2024 Hepatic cirrhosis with postal hypertension on CTA A/P 08/29/2024 Pancytopenia Type 2 diabetes mellitus Essential hypertension GERD on home Omeprazole PLAN Utilize supplemental oxygen as needed to achieve SpO2 >90% Patient has been hemodynamically stable and has not required pressor support since arrival Continue to trend H&H Transfuse for hemoglobin <7, or for signs of active bleeding with hemodynamic instability Protonix 40 mg IV BID Consult GI, appreciate recommendations Note plans for EGD tentatively tomorrow Consult general surgery (hepatobiliary), Dr. Holland, appreciate recommendations Noted plans for possible cholecystectomy during this admission PRN analgesia Resume home levothyroxine Bowel regimen: PRN Nutrition: regular diet today, NPO at midnight for EGD tomorrow Activity: as tolerated DVT prophylaxis: EPC cuffs; pharmacologic prophylaxis held in the setting of bleeding GI prophylaxis: protonix BID Glycemic control: as needed to maintain euglycemia Replace electrolytes per protocol CODE STATUS: Full DISPOSITION: Stable for transfer out of ICU. Critical care will sign off upon transfer, or 10/02/2024 at 0700 if patient remains in ICU with orders to transfer, at that time [facility] will assume care. *Most recent imaging / lab studies independently reviewed. *Please also note additional orders *Plan of care discussed with Dr. Tomasz SUNG, [facility] Please feel free to contact me via Patient Touch. Subjective No acute events reported overnight. Patient seen and examined while resting in bed this morning. She denies abdominal pain, nausea, vomiting. She denies additional episodes of melena. Hospital Problem: Principal Problem: GI bleed OBJECTIVE: Lungs: effort normal no respiratory distress no wheezes Heart: rate normal regular rhythm Abdomen: soft no distension Neuro: alert Physical Exam Constitutional She is oriented to person, place, and time. No distress. HENT Head Normocephalic and atraumatic. Eyes: Conjunctivae are normal. Neck Neck supple. Cardiovascular: Normal rate and regular rhythm. Pulmonary/Chest: Effort normal. She has no wheezes. No respiratory distress. Abdominal: She exhibits no distension. Soft. There is no abdominal tenderness. Musculoskeletal: Cervical back: Neck supple. Neurological She is alert and oriented to person, place, and time. Skin: Skin is warm and dry. She is not diaphoretic. Vital Signs Temp: [36.4 C (97.5 F)-37.1 C (98.8 F)] 37.1 C (98.7 F) Pulse: [67-78] 78 Resp: [15-24] 24 BP: (116-165)/(58-85) 154/68 SpO2: [94 %-100 %] 96 % O2 Device: None (Room air) O2 Device: None (Room air) No intake/output data recorded. Results from last 3 days Lab Units 10/01/2430809/30/2494809/29/242031 BUN mg/dL 37* 50* 48* CREATININE mg/dL 1.09* 1.48* 1.54* POTASSIUM mmol/L 4.1 4.3 4.0 CO2 mmol/L 19* 17* 16* CHLORIDE mmol/L 114* 116* 120* MAGNESIUM mg/dL 1.8 2.0 -- AST U/L 30 36 40 ALT U/L 32* 38* 39* ALK PHOS U/L 113 123 121 Results from last 3 days Lab Units 09/29/242031 INR 1.4* PROTIME sec 15.9* Results from last 3 days Lab Units 10/01/24 0309 09/30/24 2055 09/30/24 1713 09/30/24 0949 09/30/24 0323 09/29/242031 WBC x10E9/L 3.5* -- -- 3.5* -- 4.0 HEMOGLOBIN g/dL 8.9* 9.1* 9.7* 8.9* 8.3* 8.3* HEMATOCRIT % 26.3* 26.8* 28.4* 26.2* 24.4* 24.4* PLATELETS X10E9/L 86* -- -- 71* -- 61* MCV fL 88 -- -- 88 -- 87 MCH pg 29.9 -- -- 30.0 -- 29.7 MCHC g/dL 34.0 -- -- 34.2 -- 34.0 RDW % 15.7* -- -- 15.1* -- 15.2* MONO ABS MAN 10*3/uL -- -- -- -- -- 0.3 EOS ABS AUTO 10*3/uL 0.2 -- -- 0.1 -- -- EOS ABS MAN 10*3/uL -- -- -- -- -- 0.1 Microbiology Results No results found for the last 168 hours. Results from last 7 days Lab Units 10/01/2430809/30/2494809/29/24203109/29/241941 BEDSIDE GLUCOSE mg/dL -- -- -- 143* GLUCOSE mg/dL 125* 203* 119* -- Lines/Drains PICC Triple Lumen 09/29/24 Left (Active) Precautions Standard precautions;Hand hygiene;Gloves 10/01/24299 Lumen 1 White 10/01/24299 Lumen 1 Status Flushed;Blood return noted;Saline locked;Alcohol sponge cap changed 10/01/24299 Lumen 2 Blue 10/01/24299 Lumen 2 Status Flushed;Blood return noted;Saline locked;Alcohol sponge cap changed 10/01/24299 Lumen 3 Gause 10/01/24299 Lumen 3 Status Infusing;Alcohol sponge cap maintained;Connections checked/tightened 10/01/24299 Site Assessment Clean;Dry;Intact 10/01/24299 Dressing Type Transparent with CHG gel;Occlusive 10/01/24299 Dressing Status Clean;Dry;Intact 10/01/24299 Dressing Intervention Initial dressing 05/09/25 1945 Line Necessity Peripherally incompatible solution 10/01/24 0300 Line Necessity Reviewed With CC 09/30/242044 Patient Tolerance of Line Care Tolerated well 10/01/24 0300 Dressing Change Due (Non-Gauze) 10/06/24 09/29/24 194 Tammy Sung PA-C 10/01/24 1015 Attestation signed by 11:02 AM PULMONARY/CRITICAL CARE ATTENDING ATTESTATION I, LISBET BRUSH MD, personally performed the face to face diagnostic evaluation on this patient. I have reviewed the GRICELDA's History, Exam, and MDM and agree with the assessment and plan as written. Lisbet Brush MD [facility] Images from the original note were not included. [facility] Progress Note Name: Ashlee Banerjee Age: 73 y.o. Date: 09/30/24 Length of Stay 1 day(s) ASSESSMENT Acute upper GI bleed, melena Acute blood loss anemia secondary to above, s/p 2 units pRBC at [facility] Primary biliary cirrhosis Recent liver biopsy 09/20/2024 at [facility] History of GAVE Hypovolemic shock, resolved - off vasopressors Right-sided abdominal pain Gallbladder distension with cholelithiasis and sludge CBD 1.3 cm on CTA abdomen and pelvis at [facility] 09/28/2024 Hepatic cirrhosis with postal hypertension on CTA A/P 08/29/2024 Type 2 diabetes mellitus Essential hypertension GERD on home Omeprazole PLAN Utilize supplemental oxygen as needed to achieve SpO2 >90% Patient has been hemodynamically stable and has not required pressor support since arrival Trend H&H Transfuse for hemoglobin <7, or for signs of active bleeding with hemodynamic instability Protonix 40 mg IV BID Consult GI, appreciate recommendations Note plans for EGD tentatively Wednesday Consult general surgery (hepatobiliary), Dr. Holland, appreciate recommendations Noted plans for possible cholecystectomy during this admission Hold home antihypertensives PRN analgesia Nutrition: ok for clears per GI. No plans for GI or surgery intervention today. Activity: out of bed and to chair as tolerated DVT prophylaxis: EPC cuffs, pharmacologic prophylaxis held in the setting of bleeding GI prophylaxis: Protonix BID Glycemic control: as needed to maintain euglycemia Replace electrolytes per protocol CODE STATUS: FULL DISPOSITION: Stable for transfer out of ICU *Most recent imaging / lab studies independently reviewed. *Please also note additional orders *Plan of care discussed with Dr. Tomasz SUNG, [place] [facility] Please feel free to contact me via Patient Touch. Subjective No acute events reported overnight. Patient seen and examined while resting in bed this morning. She denies abdominal pain, nausea, vomiting. She states that she is hungry. Hospital Problem: Principal Problem: GI bleed OBJECTIVE: Lungs: effort normal no respiratory distress no wheezes Heart: rate normal regular rhythm Abdomen: soft no distension Neuro: alert Physical Exam Constitutional She is oriented to person, place, and time. No distress. HENT Head Normocephalic and atraumatic. Eyes: Conjunctivae are normal. Neck Neck supple. Cardiovascular: Normal rate and regular rhythm. Pulmonary/Chest: Effort normal. She has no wheezes. No respiratory distress. Abdominal: She exhibits no distension. Soft. There is no abdominal tenderness. Musculoskeletal: Cervical back: Neck supple. Neurological She is alert and oriented to person, place, and time. Skin: Skin is warm and dry. She is not diaphoretic. Vital Signs Temp: [36.5 C (97.7 F)-36.9 C (98.5 F)] 36.7 C (98.1 F) Pulse: [72-78] 72 Resp: [13-22] 18 BP: (94-139)/(44-64) 113/44 SpO2: [93 %-99 %] 93 % O2 Device: None (Room air) O2 Flow Rate (L/min): [0 L/min] 0 L/min O2 Device: None (Room air) No intake/output data recorded. Results from last 3 days Lab Units 09/29/242031 BUN mg/dL 48* CREATININE mg/dL 1.54* POTASSIUM mmol/L 4.0 CO2 mmol/L 16* CHLORIDE mmol/L 120* AST U/L 40 ALT U/L 39* ALK PHOS U/L 121 Results from last 3 days Lab Units 09/29/242031 INR 1.4* PROTIME sec 15.9* Results from last 3 days Lab Units 09/30/24 0323 09/29/242031 WBC x10E9/L -- 4.0 HEMOGLOBIN g/dL 8.3* 8.3* HEMATOCRIT % 24.4* 24.4* PLATELETS X10E9/L -- 61* MCV fL -- 87 MCH pg -- 29.7 MCHC g/dL -- 34.0 RDW % -- 15.2* MONO ABS MAN 10*3/uL -- 0.3 EOS ABS MAN 10*3/uL -- 0.1 Microbiology Results No results found for the last 168 hours. Results from last 7 days Lab Units 09/29/24203109/29/241941 BEDSIDE GLUCOSE mg/dL -- 143* GLUCOSE mg/dL 119* -- Lines/Drains PICC Triple Lumen 09/29/24 Left (Active) Precautions Standard precautions;Hand hygiene;Gloves 09/30/24 0300 Lumen 1 Gause 09/30/24 0300 Lumen 1 Status Blood return noted;Alcohol sponge cap maintained 09/30/24 0300 Lumen 2 Blue 09/30/24 0300 Lumen 2 Status Blood return noted;Alcohol sponge cap maintained 09/30/24 0300 Lumen 3 White 09/30/24 0300 Lumen 3 Status Blood return noted;Alcohol sponge cap maintained 09/30/24 0300 Site Assessment Clean;Dry;Intact 09/30/24 0300 Dressing Type Transparent with CHG gel;Occlusive 09/30/24 0300 Dressing Status Clean;Dry;Intact 09/30/24 0300 Dressing Intervention Initial dressing 09/29/241944 Line Necessity Peripherally incompatible solution 09/30/24 030 Line Necessity Reviewed With CC 09/30/24 0300 Patient Tolerance of Line Care Tolerated well 09/30/24 030 Dressing Change Due (Non-Gauze) 10/06/24 09/29/241944 Tammy Sung PA-C 09/30/24 1018 Attestation signed by 2:36 PM PULMONARY/CRITICAL CARE ATTENDING ATTESTATION I, LISBET BRUSH MD, personally performed the face to face diagnostic evaluation on this patient. I have reviewed the GRICELDA's History, Exam, and MDM and agree with the assessment and plan as written. Patient evaluated at the bedside. No further signs of bleeding. She remains hemodynamically stable. Tentative plans for EGD Wednesday. Patient to transfer out of ICU Lisbet Brush MD [facility] Pul[facility] / Critical Care documented in this encounter [facility] 10-03-2024 Progress note Formatting of t his note is different from the original. DISCHARGE PLANNING NOTE 10/03/24 0908 Enhanced DTR Today's Focus of Care Is... 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 Primary Appointment set up What is the Discharge / Transition Plan? Home with Self Care Case discussed in daily transition rounds and chart reviewed by CN. Barriers to discharge include no medical barriers Discharge Plan remains: home self care. CN will continue to follow and is available should any further needs arise. - Ginny Moreland RN 10/03/24 9:16 AM [facility] 10-03-2024 Miscellaneous Notes DISCHARGE PLANNING NOTE 10/03/24 0908 Enhanced DTR Today's Focus of Care Is... 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 Primary Appointment set up What is the Discharge / Transition Plan? Home with Self Care Case discussed in daily transition rounds and chart reviewed by CN. Barriers to discharge include no medical barriers Discharge Plan remains: home self care. CN will continue to follow and is available should any further needs arise. - Ginny Moreland RN 10/03/24 9:16 AM Initial Assessment Initial Assessment Flowsheet Row Most Recent Value Patient Information Discharge Planning Living Arrangements Alone Assistance Needed none Home Care Services No Type of Residence Private residence Stressors Income Information IP Hunger/Food Insecurity Screening Within the past 12 months we worried whether our food would run out before we got money to buy more. Never True Within the past 12 months the food we bought just didn't last and we didn't have money to get more. Never True Caregiver/Family Member Caregiver/Support System Limitations Patient/Caregiver Goals Community Provider Referral Services Requested Patient expects to be discharged to: home independently Discharge Disposition Home with self care Additional Comments (If Applicable) Follow-up Discharge Planning Progress Note. Late entry. 10-02-2024. Per RN during discharge transition rounds, barriers to discharge are: EGD today. Discharge Plan: Return home. Has follow up scheduled with PCP on next Wednesday. Care Navigation will continue to follow for any discharge needs. - Nadya Pickens RN 10/03/24 8:24 AM Problem: Pain Goal: Patient goal is pain score less than 4, able to rest, and participant in treatment plan as appropriate Description: INTERVENTIONS: 1. Encourage patient or legal access services representative to report early pain and ask for pain medicine when needed 2. Assess pain using appropriate pain scale and include the scale used when documenting 3. Administer analgesics based on type and severity of pain and evaluate response within appropriate time frame 4. Implement non-pharmacological measures as appropriate and evaluate response 5. Consider cultural and social influences on pain and pain management 6. Notify LIP if interventions ineffective or patient reports new pain 7. Monitor vital signs including pulse ox, end-tidal CO2 based on pain intervention 8. Reassess pain per policy 9. Teach patient or legal access services representative interventions for comforting Outcome: Progressing Note: Evaluation of progress towards goal: This shift pt. Has displayed adequate pain and comfort level. Problem: Safety Goal: Patient will be injury free during hospitalization Description: INTERVENTIONS: 1. Assess patient's risk for falls and implement fall prevention plan of care per policy 2. Provide and maintain a safe environment 3. Proper use of double Identifiers 4. Medication administration using the 5 rights 5. Hand hygiene 6. Specimens are labeled at the bedside 7. Instruct patient/ patient access services representative about use of safety devices 8. Include patient/ patient access services representative in decisions related to safety Outcome: Progressing Note: Evaluation of progress towards goal: Pt. Remained free of injury this shift. Problem: Infection Goal: Absence of infection during hospitalization Description: INTERVENTIONS 1. Assess and monitor for signs and symptoms of infection. 2. Monitor lab/diagnostic results. 3. Monitor all insertion sites i.e., indwelling lines, tubes and drains. 4. Monitor endotracheal (as able) and nasal secretions for changes in amount and color. 5. Administer medications as ordered. 6. Instruct and encourage patient and family to use good hand hygiene technique. 7. Identify and instruct patient/patient access services representative in use of appropriate isolation precautions for identified infection/symptoms. 8. Provide and discuss with patient/patient access services representative on educational MDRO sheet. 9. Encourage and monitor nutritional status daily and consult traffic technician if indicated. 10. Implement neutropenic guidelines as needed. Outcome: Progressing Note: Evaluation of progress towards goal: Pt. Remained free of signs and symptoms of infection this shift. Problem: Potential for Compromised Skin Integrity Goal: Skin integrity is maintained or improved Description: Patient's goal is: INTERVENTIONS 1. Perform initial skin assessment on admission and as needed 2. Turn patient every 2 hours and PRN 3. Relieve pressure to bony prominences 4. Avoid shearing 5. Keep skin clean and dry 6. Alternate a full bath with partial baths for elderly 7. Apply lotion/moisturizer on skin 8. Monitor patient's hygiene practices 9. Float heels 10. Collaborate with interdisciplinary team and initiate plans and interventions as needed Outcome: Progressing Note: Evaluation of progress towards goal: Pt. Skin integrity this shift remained intact. Problem: Urinary Incontinence Goal: Perineal skin integrity is maintained or improved Description: INTERVENTIONS 1. Assess genitourinary system, perineal skin, labs (urinalysis), and history of incontinence to include past management, aggravating, and alleviating factors 2. Keep skin clean and dry 3. Apply skin protectant 4. Develop skin care regimen 5. Provide privacy when changing patients incontinence device to maintain their dignity 6. Consider placing an indwelling catheter 7. Collaborate with interdisciplinary team and initiate plans and interventions as needed Outcome: Progressing Note: Evaluation of progress towards goal: Pt. Perineal Skin integrity this shift remained intact. Problem: Moderate - High Risk Fall Score Description: Almazan Fall Score of =/> 25 or indicated by [facility] Assessment Goal: Patient should be free from fall Description: Interventions: 1. Harmans to environment 2. Hourly rounds addressing the 4 P's (Pain, Positioning, Possessions, Potty) 3. Clear area of hazards (spills, clutter, electrical cords, unnecessary equipment) 4. Place equipment (bed & TV controls, call light, phone, urinal) within reach 5. Encourage patient to wear glasses and hearing aides as appropriate 6. Maintain bed in lowest position 7. Lock wheels on bed/wheelchair 8. Provide adequate lighting, including night light 9. Assess need for additional bedding, food/fluids, pain med's prior to sleep/routinely 10. Provide gripper slippers or personal non-skid footwear 11. Teach patient and patient access services representative to maintain environment for safety and engage in all aspects of fall prevention program 12. Remind patient to call for help before getting out of bed 13. Initiate bed/chair/exit alarms supportive devices as appropriate, (chair wedge, no-skid floor mat, raised edge mattress, hip protectors) 14. Locate patient bed assignment for optimal visualization 15. Evaluate and identify Safe Patient Handling Equipment needs 16. Provide supervision when out of bed or chair 17. Utilize gait belt as needed to assist with ambulation 18. Place adaptive equipment (cane, walker) within reach 19. Request patient access services representative bring adaptive equipment/mobility aids from home or obtain and provide as needed 20. Consult pharmacy regarding effects of med's affecting mobility, cognition, and alternatives 21. Obtain physician order for PT if risk factors associated with mobility are present 22. Obtain physician order for OT as appropriate 23. Utilize diversional activities 24. Educate patient and patient access services representative how to maintain a safe environment during visitation times (notify nurse prior to leaving bedside) 25. Consider appropriateness of medical or non-biomedical engineering technologist 26. Set up voiding schedule as appropriate (every 2 hours) Outcome: Progressing Note: Evaluation of progress towards goal: Pt. Remained free of falls this shift. Patient Instructions after an EGD without BiopsyPatient: Ashlee Banerjee Date: October 02ttngoc MD: Christina Noland1. Do Not eat or drink anything for 1 hour. Try sips of water first. If tolerated, resume your regular diet or one recommended by your physician.2. Do not drive, operate machinery, make critical decisions, or do activities that require coordination or balance for 24 hours.3. You may experience a sore throat for 24 to 48 hours. You may use throat lozenges or gargle with warm salt water to relieve the discomfort.4. Because air was put into your stomach during the procedure, you may experience some belching.5. Go directly to the emergency room if you notice any of the following: Chills and/or fever over 101 Persistent vomiting or vomiting with blood Severe abdominal pain, other than gas cramps Severe chest pain Black, tarry stoolsYour doctor recommends these additional instructions:Resume your regular diet.Your impressions for this procedure:- Normal esophagus. - Z-line regular, 40 cm [...] hospital was most likely hemobilia from liver biopsy.- No specimens collected.If you have any questions on the above instructions, please call the GI Lab. Nurse Signature Patient/De signated Responsible Republican SignatureS. Ludin Noland, 10/02/2024 2:57:29 PMThis report has been signed electronically. Problem: Pain Goal: Patient goal is pain score less than 4, able to rest, and participant in treatment plan as appropriate Description: INTERVENTIONS: 1. Encourage patient or legal access services representative to report early pain and ask for pain medicine when needed 2. Assess pain using appropriate pain scale and include the scale used when documenting 3. Administer analgesics based on type and severity of pain and evaluate response within appropriate time frame 4. Implement non-pharmacological measures as appropriate and evaluate response 5. Consider cultural and social influences on pain and pain management 6. Notify LIP if interventions ineffective or patient reports new pain 7. Monitor vital signs including pulse ox, end-tidal CO2 based on pain intervention 8. Reassess pain per policy 9. Teach patient or legal access services representative interventions for comforting Outcome: Progressing Note: Evaluation of progress towards goal: Patient has PRN pain medication. Checking with every assessment. Monitoring vitals. Problem: Safety Goal: Patient will be injury free during hospitalization Description: INTERVENTIONS: 1. Assess patient's risk for falls and implement fall prevention plan of care per policy 2. Provide and maintain a safe environment 3. Proper use of double Identifiers 4. Medication administration using the 5 rights 5. Hand hygiene 6. Specimens are labeled at the bedside 7. Instruct patient/ patient access services representative about use of safety devices 8. Include patient/ patient access services representative in decisions related to safety Outcome: Progressing Note: Evaluation of progress towards goal: Patient safety maintained, call light in reach, area clear of hazards, hourly rounding continued, bed locked in lowest position, alarm on as applicable, non skid socks on, safety educated completed with patient/family, no injuries noted at this time. Problem: Infection Goal: Absence of infection during hospitalization Description: INTERVENTIONS 1. Assess and monitor for signs and symptoms of infection. 2. Monitor lab/diagnostic results. 3. Monitor all insertion sites i.e., indwelling lines, tubes and drains. 4. Monitor endotracheal (as able) and nasal secretions for changes in amount and color. 5. Administer medications as ordered. 6. Instruct and encourage patient and family to use good hand hygiene technique. 7. Identify and instruct patient/patient access services representative in use of appropriate isolation precautions for identified infection/symptoms. 8. Provide and discuss with patient/patient access services representative on educational MDRO sheet. 9. Encourage and monitor nutritional status daily and consult traffic technician if indicated. 10. Implement neutropenic guidelines as needed. Outcome: Progressing Note: Evaluation of progress towards goal: Labs and vitals monitored as ordered. Medications administered as ordered. Patient remains free from infection at this time. Problem: Potential for Compromised Skin Integrity Goal: Skin integrity is maintained or improved Description: Patient's goal is: INTERVENTIONS 1. Perform initial skin assessment on admission and as needed 2. Turn patient every 2 hours and PRN 3. Relieve pressure to bony prominences 4. Avoid shearing 5. Keep skin clean and dry 6. Alternate a full bath with partial baths for elderly 7. Apply lotion/moisturizer on skin 8. Monitor patient's hygiene practices 9. Float heels 10. Collaborate with interdisciplinary team and initiate plans and interventions as needed Outcome: Progressing Note: Evaluation of progress towards goal: Patient is turned every 2 hours and as needed. Skin is clean and dry. Will continue to monitor. Goal: Patient's nutritional intake is adequate Description: Patient's goal is: INTERVENTIONS 1. Assess and monitor food intake and supplements, patient food preferences, nausea, vomiting, labs, oral cavity (gums, teeth, tongue, mucosa), proper denture fit, and cultural beliefs 2. Monitor for signs of hypoglycemia and hyperglycemia 3. Collaborate with interdisciplinary team and initiate plan and interventions as ordered 4. Monitor patient's weight 5. Assist patient with meals/food selection 6. Assist patient with eating 7. Allow adequate time for meals 8. Provide pleasant environment during mealtime 9. Increase social contact during mealtimes 10. Plan activities to conserve energy 11. Encourage/perform oral hygiene as appropriate 12. Encourage patient to take dietary supplement as ordered 13. Collaborate with clinical traffic technician 14. Include patient/ patient's access services representative in decisions related to nutrition Outcome: Progressing Note: Evaluation of progress towards goal: Patient is turned every 2 hours and as needed. Skin is clean and dry. Will continue to monitor. Problem: Moderate - High Risk Fall Score Description: [place] Fall Score of =/> 25 or indicated by [facility] Assessment Goal: Patient should be free from fall Description: Interventions: 1. [place] to environment 2. Hourly rounds addressing the 4 P's (Pain, Positioning, Possessions, Potty) 3. Clear area of hazards (spills, clutter, electrical cords, unnecessary equipment) 4. Place equipment (bed & TV controls, call light, phone, urinal) within reach 5. Encourage patient to wear glasses and hearing aides as appropriate 6. Maintain bed in lowest position 7. Lock wheels on bed/wheelchair 8. Provide adequate lighting, including night light 9. Assess need for additional bedding, food/fluids, pain med's prior to sleep/routinely 10. Provide gripper slippers or personal non-skid footwear 11. Teach patient and patient access services representative to maintain environment for safety and engage in all aspects of fall prevention program 12. Remind patient to call for help before getting out of bed 13. Initiate bed/chair/exit alarms supportive devices as appropriate, (chair wedge, no-skid floor mat, raised edge mattress, hip protectors) 14. Locate patient bed assignment for optimal visualization 15. Evaluate and identify Safe Patient Handling Equipment needs 16. Provide supervision when out of bed or chair 17. Utilize gait belt as needed to assist with ambulation 18. Place adaptive equipment (cane, walker) within reach 19. Request patient access services representative bring adaptive equipment/mobility aids from home or obtain and provide as needed 20. Consult pharmacy regarding effects of med's affecting mobility, cognition, and alternatives 21. Obtain physician order for PT if risk factors associated with mobility are present 22. Obtain physician order for OT as appropriate 23. Utilize diversional activities 24. Educate patient and patient access services representative how to maintain a safe environment during visitation times (notify nurse prior to leaving bedside) 25. Consider appropriateness of medical or non-biomedical engineering technologist 26. Set up voiding schedule as appropriate (every 2 hours) Outcome: Progressing Note: Evaluation of progress towards goal: Patient is oriented to their environment, area is free from hazards, and hourly rounding is done. The bed alarm is on, bed is in lowest position, and call light is in reach. Fall risk armband is on patient. Problem: Pain Goal: Patient goal is pain score less than 4, able to rest, and participant in treatment plan as appropriate Description: INTERVENTIONS: 1. Encourage patient or legal access services representative to report early pain and ask for pain medicine when needed 2. Assess pain using appropriate pain scale and include the scale used when documenting 3. Administer analgesics based on type and severity of pain and evaluate response within appropriate time frame 4. Implement non-pharmacological measures as appropriate and evaluate response 5. Consider cultural and social influences on pain and pain management 6. Notify LIP if interventions ineffective or patient reports new pain 7. Monitor vital signs including pulse ox, end-tidal CO2 based on pain intervention 8. Reassess pain per policy 9. Teach patient or legal access services representative interventions for comforting Outcome: Progressing Note: Evaluation of progress towards goal: patient will verbalize acceptable pain score and alert care team of any pain concerns. Problem: Safety Goal: Patient will be injury free during hospitalization Description: INTERVENTIONS: 1. Assess patient's risk for falls and implement fall prevention plan of care per policy 2. Provide and maintain a safe environment 3. Proper use of double Identifiers 4. Medication administration using the 5 rights 5. Hand hygiene 6. Specimens are labeled at the bedside 7. Instruct patient/ patient access services representative about use of safety devices 8. Include patient/ patient access services representative in decisions related to safety Outcome: Progressing Note: Evaluation of progress towards goal: .pt will remain free from falls throughout hospital stay. Double identifiers used for proper pt identification to prevent safety risks. Problem: Infection Goal: Absence of infection during hospitalization Description: INTERVENTIONS 1. Assess and monitor for signs and symptoms of infection. 2. Monitor lab/diagnostic results. 3. Monitor all insertion sites i.e., indwelling lines, tubes and drains. 4. Monitor endotracheal (as able) and nasal secretions for changes in amount and color. 5. Administer medications as ordered. 6. Instruct and encourage patient and family to use good hand hygiene technique. 7. Identify and instruct patient/patient access services representative in use of appropriate isolation precautions for identified infection/symptoms. 8. Provide and discuss with patient/patient access services representative on educational MDRO sheet. 9. Encourage and monitor nutritional status daily and consult traffic technician if indicated. 10. Implement neutropenic guidelines as needed. Outcome: Progressing Note: Evaluation of progress towards goal: pt will show no signs or symptoms of infection prior to discharge. Any unneccessary invasive lines and tubes will be removed if not medically necessary to decrease infection risk. Problem: Knowledge Deficit Goal: Patient/patient access services representative demonstrates understanding of disease process, treatment plan, medications, and discharge instructions Description: INTERVENTIONS 1. Complete learning assessment and assess knowledge base 2. Provide teaching at level of understanding 3. Provide teaching via preferred learning method(s) Outcome: Progressing Note: Evaluation of progress towards goal: pt will verbalize understanding of care plan as well as medications and procedures necessary for care. Pt will demonstrate proper use of equipment and medications needed prior to discharge. Education will be individualized to pt needs. Problem: Discharge Planning Goal: Discharge to post-acute care, other facility, or home with appropriate resources Description: Patient's goal is: INTERVENTIONS 1. Conduct assessment to determine patient/family and health care team treatment goals, and need for post-acute services based on payer coverage, community resources, and patient preferences, and barriers to discharge 2. Coordinate with Social work, Care Navigation, and Utilization Review to arrange appropriate level of services according to patient's needs based on patient preference and payer coverage in collaboration with the physician and health care team 3. Address psychosocial, clinical, and financial barriers to discharge as identified in assessment in conjunction with the patient/family and health care team 4. Consult appropriate ancillary services (i.e.. PT/OT/ST, etc) as needed 5. Communicate with and update the patient/family, physician, and health care team regarding progress on the discharge plan 6. Identify discharge learning needs (meds, wound care, etc). 7. Arrange for needed discharge transportation as appropriate Outcome: Progressing Note: Evaluation of progress towards goal: pt will understand and verbalize any barriers to discharge. Pt will also communicate with team and family members any discharge needs such as transportation and medication needs. Pt will discuss any questions or concerns with care team. Pt has orders to transfer out of ICU. Problem: Gastrointestinal - Adult Goal: Maintains or returns to baseline bowel function Description: Patient's goal is: INTERVENTIONS: 1. Assess bowel function 2. Encourage oral fluids to ensure adequate hydration 3. Administer IV fluids as ordered to ensure adequate hydration 4. Administer ordered medications as needed 5. Encourage mobilization and activity 6. Nutrition consult to assist patient with appropriate food choices 7. Nasogastric tube to suction as ordered Outcome: Progressing Note: Evaluation of progress towards goal: Pt's rectal bleeding has improved/subsided. H+H trending upwards and remain stable. Pt having regular bowel movements. Problem: Hematologic - Adult Goal: Maintains hematologic stability Description: INTERVENTIONS 1. Assess for signs and symptoms of bleeding or hemorrhage 2. Monitor labs as ordered 3. Administer supportive blood products/factors as ordered and appropriate 4. [place] and maintain bleeding precautions Outcome: Progressing Note: Evaluation of progress towards goal: Pt's H+H being monitored at least Q6H, remains stable at this time, no evidence of bleeding noted. Problem: Pain Goal: Patient goal is pain score less than 4, able to rest, and participant in treatment plan as appropriate Description: INTERVENTIONS: 1. Encourage patient or legal access services representative to report early pain and ask for pain medicine when needed 2. Assess pain using appropriate pain scale and include the scale used when documenting 3. Administer analgesics based on type and severity of pain and evaluate response within appropriate time frame 4. Implement non-pharmacological measures as appropriate and evaluate response 5. Consider cultural and social influences on pain and pain management 6. Notify LIP if interventions ineffective or patient reports new pain 7. Monitor vital signs including pulse ox, end-tidal CO2 based on pain intervention 8. Reassess pain per policy 9. Teach patient or legal access services representative interventions for comforting Outcome: Progressing Note: Evaluation of progress towards goal: patient comfort measures taken into consideration, medication given when needed Problem: Safety Goal: Patient will be injury free during hospitalization Description: INTERVENTIONS: 1. Assess patient's risk for falls and implement fall prevention plan of care per policy 2. Provide and maintain a safe environment 3. Proper use of double Identifiers 4. Medication administration using the 5 rights 5. Hand hygiene 6. Specimens are labeled at the bedside 7. Instruct patient/ patient access services representative about use of safety devices 8. Include patient/ patient access services representative in decisions related to safety Outcome: Progressing Note: Evaluation of progress towards goal: patient has remained injury free, bed in lowest position, usable items within reach, safety measures maintained. Problem: Infection Goal: Absence of infection during hospitalization Description: INTERVENTIONS 1. Assess and monitor for signs and symptoms of infection. 2. Monitor lab/diagnostic results. 3. Monitor all insertion sites i.e., indwelling lines, tubes and drains. 4. Monitor endotracheal (as able) and nasal secretions for changes in amount and color. 5. Administer medications as ordered. 6. Instruct and encourage patient and family to use good hand hygiene technique. 7. Identify and instruct patient/patient access services representative in use of appropriate isolation precautions for identified infection/symptoms. 8. Provide and discuss with patient/patient access services representative on educational MDRO sheet. 9. Encourage and monitor nutritional status daily and consult traffic technician if indicated. 10. Implement neutropenic guidelines as needed. Outcome: Progressing Note: Evaluation of progress towards goal: patient temperature remains within limits, antibiotics given when indicated, hygiene maintained. Problem: Knowledge Deficit Goal: Patient/patient access services representative demonstrates understanding of disease process, treatment plan, medications, and discharge instructions Description: INTERVENTIONS 1. Complete learning assessment and assess knowledge base 2. Provide teaching at level of understanding 3. Provide teaching via preferred learning method(s) Outcome: Progressing Note: Evaluation of progress towards goal: regularly educating patient when appropriate, answering any questions family or patient may have, providing information when needed Problem: Discharge Planning Goal: Discharge to post-acute care, other facility, or home with appropriate resources Description: Patient's goal is: INTERVENTIONS 1. Conduct assessment to determine patient/family and health care team treatment goals, and need for post-acute services based on payer coverage, community resources, and patient preferences, and barriers to discharge 2. Coordinate with Social work, Care Navigation, and Utilization Review to arrange appropriate level of services according to patient's needs based on patient preference and payer coverage in collaboration with the physician and health care team 3. Address psychosocial, clinical, and financial barriers to discharge as identified in assessment in conjunction with the patient/family and health care team 4. Consult appropriate ancillary services (i.e.. PT/OT/ST, etc) as needed 5. Communicate with and update the patient/family, physician, and health care team regarding progress on the discharge plan 6. Identify discharge learning needs (meds, wound care, etc). 7. Arrange for needed discharge transportation as appropriate Outcome: Progressing Note: Evaluation of progress towards goal: continuously working with interdisciplinary team to improve patient status, patient currently in the MICU for critical care. [facility] Name: Ashlee Banerjee Date: 10/01/2024 Admit Date: 09/29/2024 Patient to be transferred out of the ICU. Sign-out has been called to Dr. Hudson at 12:15 PM. Critical Care will sign off at time of transfer out of ICU or 10/02/2024 at 0700 if patient does not have a bed and [facility] will assume care at that time. Please contact via patient touch if there any questions. Thank you. BEATRICE NIETO PA-C 10/01/24 1215 Problem: Pain Goal: Patient goal is pain score less than 4, able to rest, and participant in treatment plan as appropriate Description: INTERVENTIONS: 1. Encourage patient or legal access services representative to report early pain and ask for pain medicine when needed 2. Assess pain using appropriate pain scale and include the scale used when documenting 3. Administer analgesics based on type and severity of pain and evaluate response within appropriate time frame 4. Implement non-pharmacological measures as appropriate and evaluate response 5. Consider cultural and social influences on pain and pain management 6. Notify LIP if interventions ineffective or patient reports new pain 7. Monitor vital signs including pulse ox, end-tidal CO2 based on pain intervention 8. Reassess pain per policy 9. Teach patient or legal access services representative interventions for comforting Outcome: Progressing Note: Evaluation of progress towards goal: Denies pain this shift. Prn medications and non-pharmacological available for pain intervention. Pt satisfied with pain management Problem: Safety Goal: Patient will be injury free during hospitalization Description: INTERVENTIONS: 1. Assess patient's risk for falls and implement fall prevention plan of care per policy 2. Provide and maintain a safe environment 3. Proper use of double Identifiers 4. Medication administration using the 5 rights 5. Hand hygiene 6. Specimens are labeled at the bedside 7. Instruct patient/ patient access services representative about use of safety devices 8. Include patient/ patient access services representative in decisions related to safety Outcome: Progressing Note: Evaluation of progress towards goal: No injuries this shift. Safety precautions in place. Problem: Infection Goal: Absence of infection during hospitalization Description: INTERVENTIONS 1. Assess and monitor for signs and symptoms of infection. 2. Monitor lab/diagnostic results. 3. Monitor all insertion sites i.e., indwelling lines, tubes and drains. 4. Monitor endotracheal (as able) and nasal secretions for changes in amount and color. 5. Administer medications as ordered. 6. Instruct and encourage patient and family to use good hand hygiene technique. 7. Identify and instruct patient/patient access services representative in use of appropriate isolation precautions for identified infection/symptoms. 8. Provide and discuss with patient/patient access services representative on educational MDRO sheet. 9. Encourage and monitor nutritional status daily and consult traffic technician if indicated. 10. Implement neutropenic guidelines as needed. Outcome: Progressing Note: Evaluation of progress towards goal: No new s/s of infection. Problem: Knowledge Deficit Goal: Patient/patient access services representative demonstrates understanding of disease process, treatment plan, medications, and discharge instructions Description: INTERVENTIONS 1. Complete learning assessment and assess knowledge base 2. Provide teaching at level of understanding 3. Provide teaching via preferred learning method(s) Outcome: Progressing Note: Evaluation of progress towards goal: Educate pt and family and updated on POC qshift and PRN Problem: Discharge Planning Goal: Discharge to post-acute care, other facility, or home with appropriate resources Description: Patient's goal is: INTERVENTIONS 1. Conduct assessment to determine patient/family and health care team treatment goals, and need for post-acute services based on payer coverage, community resources, and patient preferences, and barriers to discharge 2. Coordinate with Social work, Care Navigation, and Utilization Review to arrange appropriate level of services according to patient's needs based on patient preference and payer coverage in collaboration with the physician and health care team 3. Address psychosocial, clinical, and financial barriers to discharge as identified in assessment in conjunction with the patient/family and health care team 4. Consult appropriate ancillary services (i.e.. PT/OT/ST, etc) as needed 5. Communicate with and update the patient/family, physician, and health care team regarding progress on the discharge plan 6. Identify discharge learning needs (meds, wound care, etc). 7. Arrange for needed discharge transportation as appropriate Outcome: Progressing Note: Evaluation of progress towards goal: Discharge planning ongoing. Tx orders to intermediate care awaiting bed assignment Problem: Potential for Compromised Skin Integrity Goal: Skin integrity is maintained or improved Description: Patient's goal is: INTERVENTIONS 1. Perform initial skin assessment on admission and as needed 2. Turn patient every 2 hours and PRN 3. Relieve pressure to bony prominences 4. Avoid shearing 5. Keep skin clean and dry 6. Alternate a full bath with partial baths for elderly 7. Apply lotion/moisturizer on skin 8. Monitor patient's hygiene practices 9. Float heels 10. Collaborate with interdisciplinary team and initiate plans and interventions as needed Outcome: Progressing Note: Evaluation of progress towards goal: No s/s of new breakdown pressure ulcer prevention in place. Goal: Patient's nutritional intake is adequate Description: Patient's goal is: INTERVENTIONS 1. Assess and monitor food intake and supplements, patient food preferences, nausea, vomiting, labs, oral cavity (gums, teeth, tongue, mucosa), proper denture fit, and cultural beliefs 2. Monitor for signs of hypoglycemia and hyperglycemia 3. Collaborate with interdisciplinary team and initiate plan and interventions as ordered 4. Monitor patient's weight 5. Assist patient with meals/food selection 6. Assist patient with eating 7. Allow adequate time for meals 8. Provide pleasant environment during mealtime 9. Increase social contact during mealtimes 10. Plan activities to conserve energy 11. Encourage/perform oral hygiene as appropriate 12. Encourage patient to take dietary supplement as ordered 13. Collaborate with clinical traffic technician 14. Include patient/ patient's access services representative in decisions related to nutrition Outcome: Progressing Note: Evaluation of progress towards goal: Pt advanced to clear liquid (no red coloring). Tolerating well Problem: Urinary Incontinence Goal: Perineal skin integrity is maintained or improved Description: INTERVENTIONS 1. Assess genitourinary system, perineal skin, labs (urinalysis), and history of incontinence to include past management, aggravating, and alleviating factors 2. Keep skin clean and dry 3. Apply skin protectant 4. Develop skin care regimen 5. Provide privacy when changing patients incontinence device to maintain their dignity 6. Consider placing an indwelling catheter 7. Collaborate with interdisciplinary team and initiate plans and interventions as needed Outcome: Progressing Note: Evaluation of progress towards goal: Bladder stimulator in place. Pt ambulating to bathroom. Voids without difficulty Problem: Moderate - High Risk Fall Score Description: Almazan Fall Score of =/> 25 or indicated by [facility] Assessment Goal: Patient should be free from fall Description: Interventions: 1. Harmans to environment 2. Hourly rounds addressing the 4 P's (Pain, Positioning, Possessions, Potty) 3. Clear area of hazards (spills, clutter, electrical cords, unnecessary equipment) 4. Place equipment (bed & TV controls, call light, phone, urinal) within reach 5. Encourage patient to wear glasses and hearing aides as appropriate 6. Maintain bed in lowest position 7. Lock wheels on bed/wheelchair 8. Provide adequate lighting, including night light 9. Assess need for additional bedding, food/fluids, pain med's prior to sleep/routinely 10. Provide gripper slippers or personal non-skid footwear 11. Teach patient and patient access services representative to maintain environment for safety and engage in all aspects of fall prevention program 12. Remind patient to call for help before getting out of bed 13. Initiate bed/chair/exit alarms supportive devices as appropriate, (chair wedge, no-skid floor mat, raised edge mattress, hip protectors) 14. Locate patient bed assignment for optimal visualization 15. Evaluate and identify Safe Patient Handling Equipment needs 16. Provide supervision when out of bed or chair 17. Utilize gait belt as needed to assist with ambulation 18. Place adaptive equipment (cane, walker) within reach 19. Request patient access services representative bring adaptive equipment/mobility aids from home or obtain and provide as needed 20. Consult pharmacy regarding effects of med's affecting mobility, cognition, and alternatives 21. Obtain physician order for PT if risk factors associated with mobility are present 22. Obtain physician order for OT as appropriate 23. Utilize diversional activities 24. Educate patient and patient access services representative how to maintain a safe environment during visitation times (notify nurse prior to leaving bedside) 25. Consider appropriateness of medical or non-biomedical engineering technologist 26. Set up voiding schedule as appropriate (every 2 hours) Outcome: Progressing Note: Evaluation of progress towards goal: No falls this shift. Fall precautions in place. Pt activity up with assist. Turns self Problem: Spiritual Needs Goal: Ability to function at adequate level Description: INTERVENTIONS 1. Assist patient in evaluation of resources/support systems available 2. Encourage verbalization of feelings/concerns/expectations 3. Provide quiet environment 4. Be available and sensitive to patient's needs 5. Communicate referral to pastoral care as appropriate 6. Collaborate with case management/social work case manager for discharge needs Outcome: Progressing Note: Evaluation of progress towards goal: Pt able to adequately express needs. Problem: Gastrointestinal - Adult Goal: Maintains or returns to baseline bowel function Description: Patient's goal is: INTERVENTIONS: 1. Assess bowel function 2. Encourage oral fluids to ensure adequate hydration 3. Administer IV fluids as ordered to ensure adequate hydration 4. Administer ordered medications as needed 5. Encourage mobilization and activity 6. Nutrition consult to assist patient with appropriate food choices 7. Nasogastric tube to suction as ordered Outcome: Progressing Note: Evaluation of progress towards goal: Pt without bloody stools this shift. Problem: Metabolic/Fluid and Electrolytes - Adult Goal: Electrolytes maintained within normal limits Description: INTERVENTIONS 1. Monitor for signs and symptoms of hypovolemia (tachycardia, rapid breathing, decreased urine output, postural hypotension, sunken fontanel) 2. Monitor for signs and symptoms of hypervolemia (strong rapid pulse, rapid breathing, crackles heard in lung geiger, edema, decreased urine output, sudden weight gain, distended neck veins in older children, enlarged liver and spleen) 1. Monitor intake and output 2. Monitor pt's weight 1. Monitor labs and assess patient for signs and symptoms of electrolyte imbalances 2. Administer electrolyte replacement as ordered 3. Monitor response to electrolyte replacements, including repeat lab results as appropriate 4. Fluid restriction or hydration as ordered 5. Instruct patient/ legal access services representative on nutrition/diet; fluid/hydration restrictions as appropriate Outcome: Progressing Note: Evaluation of progress towards goal: Monitor e-lytes and replace per protocol Problem: Hematologic - Adult Goal: Maintains hematologic stability Description: INTERVENTIONS 1. Assess for signs and symptoms of bleeding or hemorrhage 2. Monitor labs as ordered 3. Administer supportive blood products/factors as ordered and appropriate 4. [place] and maintain bleeding precautions Outcome: Progressing Note: Evaluation of progress towards goal: No s/s of bleeding, q8h H&H checks. Hgb remains stable. [facility]-OFF NOTE Name: Ashlee Banerjee Date: 09/30/2024 Admit Date: 09/29/2024 Patient to be transferred out of the ICU. Sign-out has been called to Dr. Jackson at 3:19 PM. Critical Care will sign off at time of transfer out of ICU. Please call Critical Care GRICELDA at if there any questions. Thank you. LISBET BRUSH MD Problem: Pain Goal: Patient goal is pain score less than 4, able to rest, and participant in treatment plan as appropriate Description: INTERVENTIONS: 1. Encourage patient or legal access services representative to report early pain and ask for pain medicine when needed 2. Assess pain using appropriate pain scale and include the scale used when documenting 3. Administer analgesics based on type and severity of pain and evaluate response within appropriate time frame 4. Implement non-pharmacological measures as appropriate and evaluate response 5. Consider cultural and social influences on pain and pain management 6. Notify LIP if interventions ineffective or patient reports new pain 7. Monitor vital signs including pulse ox, end-tidal CO2 based on pain intervention 8. Reassess pain per policy 9. Teach patient or legal access services representative interventions for comforting 09/30/2024 105 by AURORA Diaz Outcome: Progressing Note: Evaluation of progress towards goal: Patient denies pain at this time; repositioned for comfort; PRN pain medication if needed. 09/30/20241034 by AURORA Diaz Outcome: Progressing Note: Evaluation of progress towards goal: Patient denies pain at this time; repositioned for comfort; PRN pain medication if needed. Problem: Safety Goal: Patient will be injury free during hospitalization Description: INTERVENTIONS: 1. Assess patient's risk for falls and implement fall prevention plan of care per policy 2. Provide and maintain a safe environment 3. Proper use of double Identifiers 4. Medication administration using the 5 rights 5. Hand hygiene 6. Specimens are labeled at the bedside 7. Instruct patient/ patient access services representative about use of safety devices 8. Include patient/ patient access services representative in decisions related to safety 09/30/2024 105 by AURORA Diaz Outcome: Progressing Note: Evaluation of progress towards goal: Patient safety maintained; remains free from injury 09/30/20241034 by AURORA Diaz Outcome: Progressing Note: Evaluation of progress towards goal: Patient safety maintained; remains free from injury Problem: Infection Goal: Absence of infection during hospitalization Description: INTERVENTIONS 1. Assess and monitor for signs and symptoms of infection. 2. Monitor lab/diagnostic results. 3. Monitor all insertion sites i.e., indwelling lines, tubes and drains. 4. Monitor endotracheal (as able) and nasal secretions for changes in amount and color. 5. Administer medications as ordered. 6. Instruct and encourage patient and family to use good hand hygiene technique. 7. Identify and instruct patient/patient access services representative in use of appropriate isolation precautions for identified infection/symptoms. 8. Provide and discuss with patient/patient access services representative on educational MDRO sheet. 9. Encourage and monitor nutritional status daily and consult traffic technician if indicated. 10. Implement neutropenic guidelines as needed. 09/30/2024 105 by AURORA Diaz Outcome: Progressing Note: Evaluation of progress towards goal: No active infections 09/30/20241034 by AURORA Diaz Outcome: Progressing Note: Evaluation of progress towards goal: Patient afebrile; vitals stable; antibiotic therapy continues Problem: Knowledge Deficit Goal: Patient/patient access services representative demonstrates understanding of disease process, treatment plan, medications, and discharge instructions Description: INTERVENTIONS 1. Complete learning assessment and assess knowledge base 2. Provide teaching at level of understanding 3. Provide teaching via preferred learning method(s) 09/30/20241051 by AURORA Diaz Outcome: Progressing Note: Evaluation of progress towards goal: pt updated on POC 09/30/20241034 by AURORA Diaz Outcome: Progressing Note: Evaluation of progress towards goal: pt updated on POC Problem: Discharge Planning Goal: Discharge to post-acute care, other facility, or home with appropriate resources Description: Patient's goal is: INTERVENTIONS 1. Conduct assessment to determine patient/family and health care team treatment goals, and need for post-acute services based on payer coverage, community resources, and patient preferences, and barriers to discharge 2. Coordinate with Social work, Care Navigation, and Utilization Review to arrange appropriate level of services according to patient's needs based on patient preference and payer coverage in collaboration with the physician and health care team 3. Address psychosocial, clinical, and financial barriers to discharge as identified in assessment in conjunction with the patient/family and health care team 4. Consult appropriate ancillary services (i.e.. PT/OT/ST, etc) as needed 5. Communicate with and update the patient/family, physician, and health care team regarding progress on the discharge plan 6. Identify discharge learning needs (meds, wound care, etc). 7. Arrange for needed discharge transportation as appropriate 09/30/20241051 by AURORA Diaz Outcome: Progressing Note: Evaluation of progress towards goal: pt has d/c planning 09/30/20241034 by AURORA Diaz Outcome: Progressing Note: Evaluation of progress towards goal: pt has d/c planning Problem: Potential for Compromised Skin Integrity Goal: Skin integrity is maintained or improved Description: Patient's goal is: INTERVENTIONS 1. Perform initial skin assessment on admission and as needed 2. Turn patient every 2 hours and PRN 3. Relieve pressure to bony prominences 4. Avoid shearing 5. Keep skin clean and dry 6. Alternate a full bath with partial baths for elderly 7. Apply lotion/moisturizer on skin 8. Monitor patient's hygiene practices 9. Float heels 10. Collaborate with interdisciplinary team and initiate plans and interventions as needed 09/30/20241051 by AURORA Diaz Outcome: Progressing Note: Evaluation of progress towards goal: No new skin breakdown noted; turning patient every 2 hours per protocol 09/30/2024 1035 by AURORA Diaz Outcome: Progressing Note: Evaluation of progress towards goal: No new skin breakdown noted; turning patient every 2 hours per protocol Goal: Patient's nutritional intake is adequate Description: Patient's goal is: INTERVENTIONS 1. Assess and monitor food intake and supplements, patient food preferences, nausea, vomiting, labs, oral cavity (gums, teeth, tongue, mucosa), proper denture fit, and cultural beliefs 2. Monitor for signs of hypoglycemia and hyperglycemia 3. Collaborate with interdisciplinary team and initiate plan and interventions as ordered 4. Monitor patient's weight 5. Assist patient with meals/food selection 6. Assist patient with eating 7. Allow adequate time for meals 8. Provide pleasant environment during mealtime 9. Increase social contact during mealtimes 10. Plan activities to conserve energy 11. Encourage/perform oral hygiene as appropriate 12. Encourage patient to take dietary supplement as ordered 13. Collaborate with clinical traffic technician 14. Include patient/ patient's access services representative in decisions related to nutrition 09/30/2024 1052 by AURORA Diaz Outcome: Progressing Note: Evaluation of progress towards goal: pt has clear liquid diet 09/30/2024 1035 by AURORA Diaz Outcome: Progressing Note: Evaluation of progress towards goal: trickle TF Problem: Urinary Incontinence Goal: Perineal skin integrity is maintained or improved Description: INTERVENTIONS 1. Assess genitourinary system, perineal skin, labs (urinalysis), and history of incontinence to include past management, aggravating, and alleviating factors 2. Keep skin clean and dry 3. Apply skin protectant 4. Develop skin care regimen 5. Provide privacy when changing patients incontinence device to maintain their dignity 6. Consider placing an indwelling catheter 7. Collaborate with interdisciplinary team and initiate plans and interventions as needed 09/30/2024 1052 by AURORA Diaz Outcome: Progressing Note: Evaluation of progress towards goal: No new skin breakdown noted; turning patient every 2 hours per protocol 09/30/2024 1035 by AURORA Diaz Outcome: Progressing Note: Evaluation of progress towards goal: No new skin breakdown noted; turning patient every 2 hours per protocol Problem: Moderate - High Risk Fall Score Description: Almazan Fall Score of =/> 25 or indicated by [facility] Assessment Goal: Patient should be free from fall Description: Interventions: 1. Harmans to environment 2. Hourly rounds addressing the 4 P's (Pain, Positioning, Possessions, Potty) 3. Clear area of hazards (spills, clutter, electrical cords, unnecessary equipment) 4. Place equipment (bed & TV controls, call light, phone, urinal) within reach 5. Encourage patient to wear glasses and hearing aides as appropriate 6. Maintain bed in lowest position 7. Lock wheels on bed/wheelchair 8. Provide adequate lighting, including night light 9. Assess need for additional bedding, food/fluids, pain med's prior to sleep/routinely 10. Provide gripper slippers or personal non-skid footwear 11. Teach patient and patient access services representative to maintain environment for safety and engage in all aspects of fall prevention program 12. Remind patient to call for help before getting out of bed 13. Initiate bed/chair/exit alarms supportive devices as appropriate, (chair wedge, no-skid floor mat, raised edge mattress, hip protectors) 14. Locate patient bed assignment for optimal visualization 15. Evaluate and identify Safe Patient Handling Equipment needs 16. Provide supervision when out of bed or chair 17. Utilize gait belt as needed to assist with ambulation 18. Place adaptive equipment (cane, walker) within reach 19. Request patient access services representative bring adaptive equipment/mobility aids from home or obtain and provide as needed 20. Consult pharmacy regarding effects of med's affecting mobility, cognition, and alternatives 21. Obtain physician order for PT if risk factors associated with mobility are present 22. Obtain physician order for OT as appropriate 23. Utilize diversional activities 24. Educate patient and patient access services representative how to maintain a safe environment during visitation times (notify nurse prior to leaving bedside) 25. Consider appropriateness of medical or non-biomedical engineering technologist 26. Set up voiding schedule as appropriate (every 2 hours) 09/30/2024 1052 by AURORA Diaz Outcome: Progressing Note: Evaluation of progress towards goal: Patient safety maintained; remains free from injury 09/30/2024 1035 by AURORA Diaz Outcome: Progressing Note: Evaluation of progress towards goal: Patient safety maintained; remains free from injury Problem: Spiritual Needs Goal: Ability to function at adequate level Description: INTERVENTIONS 1. Assist patient in evaluation of resources/support systems available 2. Encourage verbalization of feelings/concerns/expectations 3. Provide quiet environment 4. Be available and sensitive to patient's needs 5. Communicate referral to pastoral care as appropriate 6. Collaborate with case management/social work case manager for discharge needs 09/30/2024 1052 by AURORA Diaz Outcome: Progressing Note: Evaluation of progress towards goal: 09/30/2024 1035 by AURORA Diaz Outcome: Progressing Note: Evaluation of progress towards goal: Problem: Pain Goal: Patient goal is pain score less than 4, able to rest, and participant in treatment plan as appropriate Description: INTERVENTIONS: 1. Encourage patient or legal access services representative to report early pain and ask for pain medicine when needed 2. Assess pain using appropriate pain scale and include the scale used when documenting 3. Administer analgesics based on type and severity of pain and evaluate response within appropriate time frame 4. Implement non-pharmacological measures as appropriate and evaluate response 5. Consider cultural and social influences on pain and pain management 6. Notify LIP if interventions ineffective or patient reports new pain 7. Monitor vital signs including pulse ox, end-tidal CO2 based on pain intervention 8. Reassess pain per policy 9. Teach patient or legal access services representative interventions for comforting 09/30/2024 0545 by AURORA Britton Outcome: Progressing Note: Evaluation of progress towards goal: Patient denies pain at this time; comfort measures applied; PRN pain medications available if needed. Plan of care continues that patient pain is being managed appropriately. 09/30/2024 0506 by AURORA Britton Outcome: Progressing Note: Evaluation of progress towards goal: Patient denies pain at this time; comfort measures applied; PRN pain medications available if needed. Plan of care continues that patient pain is being managed appropriately. Problem: Safety Goal: Patient will be injury free during hospitalization Description: INTERVENTIONS: 1. Assess patient's risk for falls and implement fall prevention plan of care per policy 2. Provide and maintain a safe environment 3. Proper use of double Identifiers 4. Medication administration using the 5 rights 5. Hand hygiene 6. Specimens are labeled at the bedside 7. Instruct patient/ patient access services representative about use of safety devices 8. Include patient/ patient access services representative in decisions related to safety 09/30/2024 0545 by AURORA Britton Outcome: Progressing Note: Evaluation of progress towards goal: Patient safety maintained; remains free from falls/injuries 09/30/2024 0506 by AURORA Britton Outcome: Progressing Note: Evaluation of progress towards goal: bed in lowest position with wheels locked, items and call light within reach. Care ongoing to meet patient safety goals. Problem: Infection Goal: Absence of infection during hospitalization Description: INTERVENTIONS 1. Assess and monitor for signs and symptoms of infection. 2. Monitor lab/diagnostic results. 3. Monitor all insertion sites i.e., indwelling lines, tubes and drains. 4. Monitor endotracheal (as able) and nasal secretions for changes in amount and color. 5. Administer medications as ordered. 6. Instruct and encourage patient and family to use good hand hygiene technique. 7. Identify and instruct patient/patient access services representative in use of appropriate isolation precautions for identified infection/symptoms. 8. Provide and discuss with patient/patient access services representative on educational MDRO sheet. 9. Encourage and monitor nutritional status daily and consult traffic technician if indicated. 10. Implement neutropenic guidelines as needed. 09/30/2024 0545 by AURORA Britton Outcome: Progressing Note: Evaluation of progress towards goal: Infection safety policies applied to patient's care while monitoring s/s, labs, and vitals for any indications of infection. 09/30/2024 0506 by AURORA Britton Outcome: Progressing Note: Evaluation of progress towards goal: Problem: Knowledge Deficit Goal: Patient/patient access services representative demonstrates understanding of disease process, treatment plan, medications, and discharge instructions Description: INTERVENTIONS 1. Complete learning assessment and assess knowledge base 2. Provide teaching at level of understanding 3. Provide teaching via preferred learning method(s) Outcome: Progressing Note: Evaluation of progress towards goal: continue to provide education to patient and family when available Problem: Discharge Planning Goal: Discharge to post-acute care, other facility, or home with appropriate resources Description: Patient's goal is: INTERVENTIONS 1. Conduct assessment to determine patient/family and health care team treatment goals, and need for post-acute services based on payer coverage, community resources, and patient preferences, and barriers to discharge 2. Coordinate with Social work, Care Navigation, and Utilization Review to arrange appropriate level of services according to patient's needs based on patient preference and payer coverage in collaboration with the physician and health care team 3. Address psychosocial, clinical, and financial barriers to discharge as identified in assessment in conjunction with the patient/family and health care team 4. Consult appropriate ancillary services (i.e.. PT/OT/ST, etc) as needed 5. Communicate with and update the patient/family, physician, and health care team regarding progress on the discharge plan 6. Identify discharge learning needs (meds, wound care, etc). 7. Arrange for needed discharge transportation as appropriate Outcome: Progressing Note: Evaluation of progress towards goal: Discharge planning initiated upon admission and updated as appropriate throughout stay. Problem: Potential for Compromised Skin Integrity Goal: Skin integrity is maintained or improved Description: Patient's goal is: INTERVENTIONS 1. Perform initial skin assessment on admission and as needed 2. Turn patient every 2 hours and PRN 3. Relieve pressure to bony prominences 4. Avoid shearing 5. Keep skin clean and dry 6. Alternate a full bath with partial baths for elderly 7. Apply lotion/moisturizer on skin 8. Monitor patient's hygiene practices 9. Float heels 10. Collaborate with interdisciplinary team and initiate plans and interventions as needed Outcome: Progressing Note: Evaluation of progress towards goal: skin remains intact and without issues at this time documented in this encounter [employer] 10-03-2024 Progress note Formatting of t his note is different from the original. Initial Assessment Initial Assessment Flowsheet Row Most Recent Value Patient Information Discharge Planning Living Arrangements Alone Assistance Needed none Home Care Services No Type of Residence Private residence Stressors Income Information IP Hunger/Food Insecurity Screening Within the past 12 months we worried whether our food would run out before we got money to buy more. Never True Within the past 12 months the food we bought just didn't last and we didn't have money to get more. Never True Caregiver/Family Member Caregiver/Support System Limitations Patient/Caregiver Goals Community Provider Referral Services Requested Patient expects to be discharged to: home independently Discharge Disposition Home with self care Additional Comments (If Applicable) Follow-up Discharge Planning Progress Note. Late entry. 10-02-2024. Per RN during discharge transition rounds, barriers to discharge are: EGD today. Discharge Plan: Return home. Has follow up scheduled with PCP on next Wednesday. Care Navigation will continue to follow for any discharge needs. - Nadya Pickens RN 10/03/24 8:24 AM T [facility] 10-03-2024 Plan of care note Problem: Pain Goal: Patient goal is pain score less than 4, able to rest, and participant in treatment plan as appropriate Description: INTERVENTIONS: 1. Encourage patient or legal access services representative to report early pain and ask for pain medicine when needed 2. Assess pain using appropriate pain scale and include the scale used when documenting 3. Administer analgesics based on type and severity of pain and evaluate response within appropriate time frame 4. Implement non-pharmacological measures as appropriate and evaluate response 5. Consider cultural and social influences on pain and pain management 6. Notify LIP if interventions ineffective or patient reports new pain 7. Monitor vital signs including pulse ox, end-tidal CO2 based on pain intervention 8. Reassess pain per policy 9. Teach patient or legal access services representative interventions for comforting Outcome: Progressing Note: Evaluation of progress towards goal: This shift pt. Has displayed adequate pain and comfort level. Problem: Safety Goal: Patient will be injury free during hospitalization Description: INTERVENTIONS: 1. Assess patient's risk for falls and implement fall prevention plan of care per policy 2. Provide and maintain a safe environment 3. Proper use of double Identifiers 4. Medication administration using the 5 rights 5. Hand hygiene 6. Specimens are labeled at the bedside 7. Instruct patient/ patient access services representative about use of safety devices 8. Include patient/ patient access services representative in decisions related to safety Outcome: Progressing Note: Evaluation of progress towards goal: Pt. Remained free of injury this shift. Problem: Infection Goal: Absence of infection during hospitalization Description: INTERVENTIONS 1. Assess and monitor for signs and symptoms of infection. 2. Monitor lab/diagnostic results. 3. Monitor all insertion sites i.e., indwelling lines, tubes and drains. 4. Monitor endotracheal (as able) and nasal secretions for changes in amount and color. 5. Administer medications as ordered. 6. Instruct and encourage patient and family to use good hand hygiene technique. 7. Identify and instruct patient/patient access services representative in use of appropriate isolation precautions for identified infection/symptoms. 8. Provide and discuss with patient/patient access services representative on educational MDRO sheet. 9. Encourage and monitor nutritional status daily and consult traffic technician if indicated. 10. Implement neutropenic guidelines as needed. Outcome: Progressing Note: Evaluation of progress towards goal: Pt. Remained free of signs and symptoms of infection this shift. Problem: Potential for Compromised Skin Integrity Goal: Skin integrity is maintained or improved Description: Patient's goal is: INTERVENTIONS 1. Perform initial skin assessment on admission and as needed 2. Turn patient every 2 hours and PRN 3. Relieve pressure to bony prominences 4. Avoid shearing 5. Keep skin clean and dry 6. Alternate a full bath with partial baths for elderly 7. Apply lotion/moisturizer on skin 8. Monitor patient's hygiene practices 9. Float heels 10. Collaborate with interdisciplinary team and initiate plans and interventions as needed Outcome: Progressing Note: Evaluation of progress towards goal: Pt. Skin integrity this shift remained intact. Problem: Urinary Incontinence Goal: Perineal skin integrity is maintained or improved Description: INTERVENTIONS 1. Assess genitourinary system, perineal skin, labs (urinalysis), and history of incontinence to include past management, aggravating, and alleviating factors 2. Keep skin clean and dry 3. Apply skin protectant 4. Develop skin care regimen 5. Provide privacy when changing patients incontinence device to maintain their dignity 6. Consider placing an indwelling catheter 7. Collaborate with interdisciplinary team and initiate plans and interventions as needed Outcome: Progressing Note: Evaluation of progress towards goal: Pt. Perineal Skin integrity this shift remained intact. Problem: Moderate - High Risk Fall Score Description: Almazan Fall Score of =/> 25 or indicated by [facility] Assessment Goal: Patient should be free from fall Description: Interventions: 1. Harmans to environment 2. Hourly rounds addressing the 4 P's (Pain, Positioning, Possessions, Potty) 3. Clear area of hazards (spills, clutter, electrical cords, unnecessary equipment) 4. Place equipment (bed & TV controls, call light, phone, urinal) within reach 5. Encourage patient to wear glasses and hearing aides as appropriate 6. Maintain bed in lowest position 7. Lock wheels on bed/wheelchair 8. Provide adequate lighting, including night light 9. Assess need for additional bedding, food/fluids, pain med's prior to sleep/routinely 10. Provide gripper slippers or personal non-skid footwear 11. Teach patient and patient access services representative to maintain environment for safety and engage in all aspects of fall prevention program 12. Remind patient to call for help before getting out of bed 13. Initiate bed/chair/exit alarms supportive devices as appropriate, (chair wedge, no-skid floor mat, raised edge mattress, hip protectors) 14. Locate patient bed assignment for optimal visualization 15. Evaluate and identify Safe Patient Handling Equipment needs 16. Provide supervision when out of bed or chair 17. Utilize gait belt as needed to assist with ambulation 18. Place adaptive equipment (cane, walker) within reach 19. Request patient access services representative bring adaptive equipment/mobility aids from home or obtain and provide as needed 20. Consult pharmacy regarding effects of med's affecting mobility, cognition, and alternatives 21. Obtain physician order for PT if risk factors associated with mobility are present 22. Obtain physician order for OT as appropriate 23. Utilize diversional activities 24. Educate patient and patient access services representative how to maintain a safe environment during visitation times (notify nurse prior to leaving bedside) 25. Consider appropriateness of medical or non-biomedical engineering technologist 26. Set up voiding schedule as appropriate (every 2 hours) Outcome: Progressing Note: Evaluation of progress towards goal: Pt. Remained free of falls this shift. [facility]24 Note [facility] Patient Name: Ashlee Banerjee Procedure Date: 10/02/2024 1:24 PM CSN: [id number] Date of : 1950 Admit Type: Inpatient Age: 73 Room: [place] [address] Gender: Female Note Status: Finalized Attending MD: Christina Noland , , Procedure: Upper GI endoscopy Indications: Melena Providers: Christina Noland Referring MD: Teresa Fairbanks Requesting Provider: Medicines: Monitored Anesthesia Care Complications: [...] a recent colonoscopy. - Follow-up with primary construction recruiter at [facility] for further management of underlying liver disease. Procedure Code(s): --- Professional --- 83556, Esophagogastroduodenoscopy, flexible, transoral; diagnostic, including collection of specimen(s) by brushing or washing, when performed (separate procedure) Diagnosis Code(s): --- Professional --- K76.6, Portal hypertension K31.89, Other diseases of stomach and duodenum K92.1, Melena (includes Hematochezia) CPT copyright 2022 [employer]. All rights reserved. The codes documented in this report are preliminary and upon survey workers supervisor review may be revised to meet current compliance requirements. Thomas Ridley, 10/02/2024 2:57:29 PM This report has been signed electronically. Number of Addenda: 0 Note Initiated On: 10/02/2024 1:24 PM PM CARDIOVASCULAR 10-02-2024 Attending History and physical note HISTORY AND PHYSICAL INTERVAL NOTE: Ashlee Banerjee 1950 [id number] H&P reviewed. The patient was examined and there are no changes to the H&P. Christina Noland DO Source Note - Anne-Marie Suggs MD - 10/01/2024 11:55 AM EDT [facility] Gastroenterology/Hepatology Progress Note IDENTIFYING DATA PATIENT: Ashlee Banerjee ADMIT DATE: 09/29/2024 TIME OF EVALUATION: 10/01/2024 11:55 AM HOSPITAL STAY: LOS: 2 days SUBJECTIVE/INTERVAL HISTORY Patient reports that she is doing well. No episodes of melena or hematochezia. No hematemesis. No abdominal pain. Her hemoglobin seems to be stable with most recent hemoglobin is 8.9 OBJECTIVE MEDICATIONS SCHEDULED: No current facility-administered medications on file prior to encounter. Current Outpatient Medications on File Prior to Encounter Medication Sig Dispense Refill acetaminophen (TYLENOL EXTRA STRENGTH) 500 mg tablet Take 2 tablets (1,000 mg total) by mouth every 6 (six) hours as needed. atorvastatin (LIPITOR) 20 mg tablet Take 1 tablet (20 mg total) by mouth in the morning. calcium carbonate (OS-TIP) 600 mg elemental (1,500 mg) tablet Take 1 tablet (600 mg total) by mouth daily with breakfast. carboxymethylcellulose sodium (THERATEARS OPHT) Administer 2 drops to both eyes daily as needed. carvediloL (COREG) 25 mg tablet Take 1 tablet (25 mg total) by mouth in the morning and 1 tablet (25 mg total) in the evening. Take with meals. cetirizine (ZyrTEC) 10 mg tablet Take 1 tablet (10 mg total) by mouth in the morning. cholecalciferol 1,000 units tablet Take 1 tablet (1,000 Units total) by mouth in the morning and at bedtime. clindamycin (CLEOCIN) 150 mg capsule Take 1 capsule (150 mg total) by mouth. cycloSPORINE (RESTASIS) 0.05 % ophthalmic emulsion Administer 1 drop to both eyes in the morning and 1 drop before bedtime. docosahexaenoic acid (EXPECTA LIPIL) 200 mg capsule Take 1 capsule (200 mg total) by mouth in the morning. hydroCHLOROthiazide (HYDRODIURIL) 12.5 mg tablet Take 1 tablet (12.5 mg total) by mouth daily. HYDROcodone-acetaminophen (NORCO) 5-325 mg per tablet Take 1 tablet by mouth every 8 (eight) hours as needed. levothyroxine (SYNTHROID, LEVOTHROID) 100 MCG tablet Take 1 tablet (100 mcg total) by mouth in the morning. metFORMIN (GLUCOPHAGE) 500 mg tablet Take 1 tablet (500 mg total) by mouth in the morning and 1 tablet (500 mg total) in the evening. Take with meals. MOBIC 15 mg tablet Take 1 tablet (15 mg total) by mouth in the morning. omeprazole (PriLOSEC) 40 mg capsule Take 1 capsule (40 mg total) by mouth every morning before breakfast. triamcinolone (NASACORT) 55 mcg nasal inhaler Administer 1 spray into each nostril in the morning. ubidecarenone (coenzyme Q10) 60 mg capsule Take 1 tablet by mouth in the morning. ursodioL (MIHAI FORTE) 500 mg tablet Take 1 tablet (500 mg total) by mouth in the morning and 1 tablet (500 mg total) before bedtime. valsartan (DIOVAN) 320 mg tablet Take 1 tablet (320 mg total) by mouth in the morning. PRNs: calcium gluconate, 1,000 mg, PRN Or calcium gluconate, 2,000 mg, PRN Or calcium gluconate, 3,000 mg, PRN dextrose, 15 g, PRN dextrose 50 % in water (D50W), 25 mL, PRN fentaNYL, 50 mcg, Q2H PRN Or fentaNYL, 25 mcg, Q2H PRN glucagon (human recombinant), 1 mg, PRN hydrALAZINE, 10 mg, Q6H PRN magnesium sulfate, 2,000 mg, PRN Or magnesium sulfate, 4,000 mg, PRN potassium chloride, 20-40 mEq, PRN Or potassium chloride, 20-40 mEq, PRN potassium chloride in water, 10 mEq, PRN Or potassium chloride in water, 10 mEq, PRN sodium chloride, 10 mL, PRN And sodium chloride, 20 mL, PRN ALLERGIES: Allergies Allergen Reactions Cyclobenzaprine Morphine Nickel Penicillins Sulfites Physical VITALS: BP 159/66 Pulse 70 Temp 36.4 C (97.5 F) Resp 18 Ht 154.9 cm (5' 1 ) Wt 74.5 kg (164 lb 4.8 oz) SpO2 99% BMI 31.04 kg/m GEN: alert and oriented x3, Patient is not in distress CV: RRR PULM: No respiratory distress Neurological: Alert, Ox3 LABS AND IMAGING Results from last 7 days Lab Units 10/01/24 1056 10/01/24 0309 09/30/245 09/30/24 1713 09/30/24 0949 09/30/24 0323 09/29/242031 WBC x10E9/L -- 3.5* -- -- 3.5* -- 4.0 HEMOGLOBIN g/dL 9.6* 8.9* 9.1* < > 8.9* < > 8.3* HEMATOCRIT % 28.6* 26.3* 26.8* < > 26.2* < > 24.4* PLATELETS X10E9/L -- 86* -- -- 71* -- 61* < > = values in this interval not displayed. Results from last 7 days Lab Units 09/29/242031 INR 1.4* Lab Results Component Value Date GLU 125 (H) 10/01/2024 CALCIUM 8.4 (L) 10/01/2024 K 4.1 10/01/2024 CO2 19 (L) 10/01/2024 BUN 37 (H) 10/01/2024 CREATININE 1.09 (H) 10/01/2024 Lab Results Component Value Date ALT 32 (H) 10/01/2024 AST 30 10/01/2024 ALKPHOS 113 10/01/2024 No results found for: LIPASE IMAGING: No results found. ASSESSMENT AND PLAN Ashlee Banerjee is a 73 y.o. woman with past medical history significant for hypertension, biopsy-proven primary biliary cholangitis with advanced fibrosis/cirrhosis based on transjugular liver biopsy biopsy done on September 20, 2024 at [facility] (pathology showed changes compatible with PVC and stage 3-4 fibrosis), history of GAVE on EGD that was performed on the week of August (this is per patient history, this was done at [facility] and no records are available. Patient presented with of melena the day after her liver biopsy associated with upper abdominal discomfort. Patient reports that she never had melena before this. She was found to have hemoglobin of 6.8 with some hypotension. She received 2 units of packed red blood cells with significant improvement in hemoglobin up to 8.3 this morning. Patient denies any melena for the last 3 days. Her abdominal pain seems to have subsided. The differential diagnosis for her melena includes; hemobilia secondary to her liver biopsy, bleeding from GAVE Her hemoglobin continues to be stable. No recurrence of melena since admission. Hemodynamically she has been stable. I discussed with her proceeding with EGD tomorrow. Anne-Marie Suggs MD [facility] [address] [place], [place] [id number] PH: [phone] [facility] Work Phone: 10-02-2024 History and physical note HISTORY AND PHYSICAL INTERVAL NOTE: Ashlee Banerjee 1950 [id number] H&P reviewed. The patient was examined and there are no changes to the H&P. Christina Noland DO Source Note - Anne-Marie Suggs MD - 10/01/2024 11:55 AM EDT [facility] Gastroenterology/Hepatology Progress Note IDENTIFYING DATA PATIENT: Ashlee Banerjee ADMIT DATE: 09/29/2024 TIME OF EVALUATION: 10/01/2024 11:55 AM HOSPITAL STAY: LOS: 2 days SUBJECTIVE/INTERVAL HISTORY Patient reports that she is doing well. No episodes of melena or hematochezia. No hematemesis. No abdominal pain. Her hemoglobin seems to be stable with most recent hemoglobin is 8.9 OBJECTIVE MEDICATIONS SCHEDULED: No current facility-administered medications on file prior to encounter. Current Outpatient Medications on File Prior to Encounter Medication Sig Dispense Refill acetaminophen (TYLENOL EXTRA STRENGTH) 500 mg tablet Take 2 tablets (1,000 mg total) by mouth every 6 (six) hours as needed. atorvastatin (LIPITOR) 20 mg tablet Take 1 tablet (20 mg total) by mouth in the morning. calcium carbonate (OS-TIP) 600 mg elemental (1,500 mg) tablet Take 1 tablet (600 mg total) by mouth daily with breakfast. carboxymethylcellulose sodium (THERATEARS OPHT) Administer 2 drops to both eyes daily as needed. carvediloL (COREG) 25 mg tablet Take 1 tablet (25 mg total) by mouth in the morning and 1 tablet (25 mg total) in the evening. Take with meals. cetirizine (ZyrTEC) 10 mg tablet Take 1 tablet (10 mg total) by mouth in the morning. cholecalciferol 1,000 units tablet Take 1 tablet (1,000 Units total) by mouth in the morning and at bedtime. clindamycin (CLEOCIN) 150 mg capsule Take 1 capsule (150 mg total) by mouth. cycloSPORINE (RESTASIS) 0.05 % ophthalmic emulsion Administer 1 drop to both eyes in the morning and 1 drop before bedtime. docosahexaenoic acid (EXPECTA LIPIL) 200 mg capsule Take 1 capsule (200 mg total) by mouth in the morning. hydroCHLOROthiazide (HYDRODIURIL) 12.5 mg tablet Take 1 tablet (12.5 mg total) by mouth daily. HYDROcodone-acetaminophen (NORCO) 5-325 mg per tablet Take 1 tablet by mouth every 8 (eight) hours as needed. levothyroxine (SYNTHROID, LEVOTHROID) 100 MCG tablet Take 1 tablet (100 mcg total) by mouth in the morning. metFORMIN (GLUCOPHAGE) 500 mg tablet Take 1 tablet (500 mg total) by mouth in the morning and 1 tablet (500 mg total) in the evening. Take with meals. MOBIC 15 mg tablet Take 1 tablet (15 mg total) by mouth in the morning. omeprazole (PriLOSEC) 40 mg capsule Take 1 capsule (40 mg total) by mouth every morning before breakfast. triamcinolone (NASACORT) 55 mcg nasal inhaler Administer 1 spray into each nostril in the morning. ubidecarenone (coenzyme Q10) 60 mg capsule Take 1 tablet by mouth in the morning. ursodioL (MIHAI FORTE) 500 mg tablet Take 1 tablet (500 mg total) by mouth in the morning and 1 tablet (500 mg total) before bedtime. valsartan (DIOVAN) 320 mg tablet Take 1 tablet (320 mg total) by mouth in the morning. PRNs: calcium gluconate, 1,000 mg, PRN Or calcium gluconate, 2,000 mg, PRN Or calcium gluconate, 3,000 mg, PRN dextrose, 15 g, PRN dextrose 50 % in water (D50W), 25 mL, PRN fentaNYL, 50 mcg, Q2H PRN Or fentaNYL, 25 mcg, Q2H PRN glucagon (human recombinant), 1 mg, PRN hydrALAZINE, 10 mg, Q6H PRN magnesium sulfate, 2,000 mg, PRN Or magnesium sulfate, 4,000 mg, PRN potassium chloride, 20-40 mEq, PRN Or potassium chloride, 20-40 mEq, PRN potassium chloride in water, 10 mEq, PRN Or potassium chloride in water, 10 mEq, PRN sodium chloride, 10 mL, PRN And sodium chloride, 20 mL, PRN ALLERGIES: Allergies Allergen Reactions Cyclobenzaprine Morphine Nickel Penicillins Sulfites Physical VITALS: BP 159/66 Pulse 70 Temp 36.4 C (97.5 F) Resp 18 Ht 154.9 cm (5' 1 ) Wt 74.5 kg (164 lb 4.8 oz) SpO2 99% BMI 31.04 kg/m GEN: alert and oriented x3, Patient is not in distress CV: RRR PULM: No respiratory distress Neurological: Alert, Ox3 LABS AND IMAGING Results from last 7 days Lab Units 10/01/24 1056 10/01/24 0309 09/30/245 09/30/24 1713 09/30/24 0949 09/30/24 0323 09/29/242031 WBC x10E9/L -- 3.5* -- -- 3.5* -- 4.0 HEMOGLOBIN g/dL 9.6* 8.9* 9.1* < > 8.9* < > 8.3* HEMATOCRIT % 28.6* 26.3* 26.8* < > 26.2* < > 24.4* PLATELETS X10E9/L -- 86* -- -- 71* -- 61* < > = values in this interval not displayed. Results from last 7 days Lab Units 09/29/242031 INR 1.4* Lab Results Component Value Date GLU 125 (H) 10/01/2024 CALCIUM 8.4 (L) 10/01/2024 K 4.1 10/01/2024 CO2 19 (L) 10/01/2024 BUN 37 (H) 10/01/2024 CREATININE 1.09 (H) 10/01/2024 Lab Results Component Value Date ALT 32 (H) 10/01/2024 AST 30 10/01/2024 ALKPHOS 113 10/01/2024 No results found for: LIPASE IMAGING: No results found. ASSESSMENT AND PLAN Ashlee Banerjee is a 73 y.o. woman with past medical history significant for hypertension, biopsy-proven primary biliary cholangitis with advanced fibrosis/cirrhosis based on transjugular liver biopsy biopsy done on September 20, 2024 at [facility] (pathology showed changes compatible with PVC and stage 3-4 fibrosis), history of GAVE on EGD that was performed on the week of August (this is per patient history, this was done at [facility] and no records are available. Patient presented with of melena the day after her liver biopsy associated with upper abdominal discomfort. Patient reports that she never had melena before this. She was found to have hemoglobin of 6.8 with some hypotension. She received 2 units of packed red blood cells with significant improvement in hemoglobin up to 8.3 this morning. Patient denies any melena for the last 3 days. Her abdominal pain seems to have subsided. The differential diagnosis for her melena includes; hemobilia secondary to her liver biopsy, bleeding from GAVE Her hemoglobin continues to be stable. No recurrence of melena since admission. Hemodynamically she has been stable. I discussed with her proceeding with EGD tomorrow. [place] [address] PH: [phone] Images from the original note were not included. CRITICAL CARE HISTORY & PHYSICAL Name: Ashlee Banerjee Date: 09/29/2024 Length of Stay: 0 day(s) Chief Complaint: Upper GIB History of Present Illness: Ashlee Banerjee is a 73 y.o. year-old female who is transferred to us from [facility] for acute upper GIB and need for GI services. Patient has past medical history as listed below, which is significant for primary biliary cirrhosis s/p liver biopsy 09/20/24 and 'watermelon stomach'. Patient was a direct admit at [place] from her doctor's office due to abdominal pain. She states that she has been having intermittent RUQ pain every 2 days or so ever since she had her liver biopsy at [facility]. She also reports that she has noticed dark-colored stools recently. Patient has known history of primary biliary cirrhosis as stated above. She follows with Dr. Patino in [place] as well as with doctors at [facility]. She has had previous EGD in August the patient states did not show varices. While at [place], patient was admitted to the ICU due to hypotension and anemia. She was given 2 units of packed red blood cells and started on norepinephrine. CTA did not show active bleeding, however, did note cholelithiasis and sludge. She was transferred to [facility] for GI services. Currently, vital signs are stable. She is no longer requiring vasopressors. She is tolerating room air. She denies any nausea or vomiting but does report mild right upper quadrant pain when palpated. Patient states that she used to take baby aspirin but has stopped that. She denies any NSAID use or current tobacco use. Past Medical History: Primary biliary cirrhosis DM 2 Essential Hypertension Hyperlipidemia Bladder stimulator Past Surgical History: Liver biopsy 09/20/2024 at [facility] Allergies: Morphine Nickel Sulfites Leucine Cyclobenzaprine Penicillins Review of Systems Positive for mild RUQ pain to palpation PHYSICAL EXAM: General: In bed. Well-developed, well-nourished, no apparent distress. Head: Normocephalic, atraumatic. Eyes: Wearing glasses Neck: No tracheal deviation, neck supple. Cardiovascular: Regular rate and rhythm Pulmonary: Good air entry bilaterally. On room air. Abdomen: Soft. Mildly tender to palpation RUQ Neurological: No gross deficits. Moving all extremities. Skin: Warm, no rashes or erythema. Extremities: No cyanosis or clubbing. Pulses: 2+ peripheral pulses bilaterally in upper and lower extremities. Patient Active Problem List Diagnosis GI bleed Ashlee Banerjee is a 73 y.o. year-old female with acute GIB. ASSESSMENT Acute upper GIB Patient reports dark stools Acute blood loss anemia Primary biliary cirrhosis. Recent liver biopsy September 20, 2024 at [facility] Hypovolemic Shock, resolved. Off pressors. DM type 2, not currently on medications Essential Hypertension Right sided abdominal pain Bladder stimulator GERD, on omeprazole PLAN Currently off vasopressors. Levophed ordered if needed Type and screen Trend H/H and transfuse as needed Check full set of labs now Protonix BID for upper GIB Consult Dr. Holland for evaluation. She was made aware of the patient at outside facility. PRN pain control Hold home antihypertensives for now Nutrition: NPO for now Activity: bedrest tonight. Ok to get up to commode with assist DVT prophylaxis: EPC cuffs GI prophylaxis: Protonix BID Glycemic control: as needed Replace electrolytes per protocol LINES/DRAINS/AIRWAYS: Left arm PICC CODE STATUS: Full Code DISPOSITION: ICU Most recent imaging / lab studies independently reviewed. *Please also note additional orders Tj Amin APRN, CNP Acute Care Nurse Practitioner [facility] Critical Care Please feel free to contact me via Patient Touch. CRITICAL CARE TIME: 40 minutes. Non-contiguous time with attending MD, excluding procedures. This patient, with a critical illness, requires constant monitoring and titration of care by a Critical Care Production Control Planner or GRICELDA. Failure to do so may result in further organ system failure, imminent deterioration, or . ALEXANDER Rubio 09/29/242032 Cosigned by Hal Linder MD at 09/30/2024 5:21 AM EDT documented in this encounter [facility] 10-02-2024 Note Formatting of this n ote might be different from the original. Patient Instructions after an EGD without BiopsyPatient: Ashlee Banerjee Date: October 02ttending MD: Christina Noland1. Do Not eat or drink anything for 1 hour. Try sips of water first. If tolerated, resume your regular diet or one recommended by your physician.2. Do not drive, operate machinery, make critical decisions, or do activities that require coordination or balance for 24 hours.3. You may experience a sore throat for 24 to 48 hours. You may use throat lozenges or gargle with warm salt water to relieve the discomfort.4. Because air was put into your stomach during the procedure, you may experience some belching.5. Go directly to the emergency room if you notice any of the following: Chills and/or fever over 101 Persistent vomiting or vomiting with blood Severe abdominal pain, other than gas cramps Severe chest pain Black, tarry stoolsYour doctor recommends these additional instructions:Resume your regular diet.Your impressions for this procedure:- Normal esophagus. - Z-line regular, 40 cm [...] hospital was most likely hemobilia from liver biopsy.- No specimens collected.If you have any questions on the above instructions, please call the GI Lab. Nurse Signature Patient/De signated Responsible Republican SignatureS. Ludin Noland, 10/02/2024 2:57:29 PMThis report has been signed electronically. [facility] 10-02-2024 Plan of care note Problem: Pain Goal: Patient goal is pain score less than 4, able to rest, and participant in treatment plan as appropriate Description: INTERVENTIONS: 1. Encourage patient or legal access services representative to report early pain and ask for pain medicine when needed 2. Assess pain using appropriate pain scale and include the scale used when documenting 3. Administer analgesics based on type and severity of pain and evaluate response within appropriate time frame 4. Implement non-pharmacological measures as appropriate and evaluate response 5. Consider cultural and social influences on pain and pain management 6. Notify LIP if interventions ineffective or patient reports new pain 7. Monitor vital signs including pulse ox, end-tidal CO2 based on pain intervention 8. Reassess pain per policy 9. Teach patient or legal access services representative interventions for comforting Outcome: Progressing Note: Evaluation of progress towards goal: Patient has PRN pain medication. Checking with every assessment. Monitoring vitals. Problem: Safety Goal: Patient will be injury free during hospitalization Description: INTERVENTIONS: 1. Assess patient's risk for falls and implement fall prevention plan of care per policy 2. Provide and maintain a safe environment 3. Proper use of double Identifiers 4. Medication administration using the 5 rights 5. Hand hygiene 6. Specimens are labeled at the bedside 7. Instruct patient/ patient access services representative about use of safety devices 8. Include patient/ patient access services representative in decisions related to safety Outcome: Progressing Note: Evaluation of progress towards goal: Patient safety maintained, call light in reach, area clear of hazards, hourly rounding continued, bed locked in lowest position, alarm on as applicable, non skid socks on, safety educated completed with patient/family, no injuries noted at this time. Problem: Infection Goal: Absence of infection during hospitalization Description: INTERVENTIONS 1. Assess and monitor for signs and symptoms of infection. 2. Monitor lab/diagnostic results. 3. Monitor all insertion sites i.e., indwelling lines, tubes and drains. 4. Monitor endotracheal (as able) and nasal secretions for changes in amount and color. 5. Administer medications as ordered. 6. Instruct and encourage patient and family to use good hand hygiene technique. 7. Identify and instruct patient/patient access services representative in use of appropriate isolation precautions for identified infection/symptoms. 8. Provide and discuss with patient/patient access services representative on educational MDRO sheet. 9. Encourage and monitor nutritional status daily and consult traffic technician if indicated. 10. Implement neutropenic guidelines as needed. Outcome: Progressing Note: Evaluation of progress towards goal: Labs and vitals monitored as ordered. Medications administered as ordered. Patient remains free from infection at this time. Problem: Potential for Compromised Skin Integrity Goal: Skin integrity is maintained or improved Description: Patient's goal is: INTERVENTIONS 1. Perform initial skin assessment on admission and as needed 2. Turn patient every 2 hours and PRN 3. Relieve pressure to bony prominences 4. Avoid shearing 5. Keep skin clean and dry 6. Alternate a full bath with partial baths for elderly 7. Apply lotion/moisturizer on skin 8. Monitor patient's hygiene practices 9. Float heels 10. Collaborate with interdisciplinary team and initiate plans and interventions as needed Outcome: Progressing Note: Evaluation of progress towards goal: Patient is turned every 2 hours and as needed. Skin is clean and dry. Will continue to monitor. Goal: Patient's nutritional intake is adequate Description: Patient's goal is: INTERVENTIONS 1. Assess and monitor food intake and supplements, patient food preferences, nausea, vomiting, labs, oral cavity (gums, teeth, tongue, mucosa), proper denture fit, and cultural beliefs 2. Monitor for signs of hypoglycemia and hyperglycemia 3. Collaborate with interdisciplinary team and initiate plan and interventions as ordered 4. Monitor patient's weight 5. Assist patient with meals/food selection 6. Assist patient with eating 7. Allow adequate time for meals 8. Provide pleasant environment during mealtime 9. Increase social contact during mealtimes 10. Plan activities to conserve energy 11. Encourage/perform oral hygiene as appropriate 12. Encourage patient to take dietary supplement as ordered 13. Collaborate with clinical traffic technician 14. Include patient/ patient's access services representative in decisions related to nutrition Outcome: Progressing Note: Evaluation of progress towards goal: Patient is turned every 2 hours and as needed. Skin is clean and dry. Will continue to monitor. Problem: Moderate - High Risk Fall Score Description: Almazan Fall Score of =/> 25 or indicated by [facility] Assessment Goal: Patient should be free from fall Description: Interventions: 1. [place] to environment 2. Hourly rounds addressing the 4 P's (Pain, Positioning, Possessions, Potty) 3. Clear area of hazards (spills, clutter, electrical cords, unnecessary equipment) 4. Place equipment (bed & TV controls, call light, phone, urinal) within reach 5. Encourage patient to wear glasses and hearing aides as appropriate 6. Maintain bed in lowest position 7. Lock wheels on bed/wheelchair 8. Provide adequate lighting, including night light 9. Assess need for additional bedding, food/fluids, pain med's prior to sleep/routinely 10. Provide gripper slippers or personal non-skid footwear 11. Teach patient and patient access services representative to maintain environment for safety and engage in all aspects of fall prevention program 12. Remind patient to call for help before getting out of bed 13. Initiate bed/chair/exit alarms supportive devices as appropriate, (chair wedge, no-skid floor mat, raised edge mattress, hip protectors) 14. Locate patient bed assignment for optimal visualization 15. Evaluate and identify Safe Patient Handling Equipment needs 16. Provide supervision when out of bed or chair 17. Utilize gait belt as needed to assist with ambulation 18. Place adaptive equipment (cane, walker) within reach 19. Request patient access services representative bring adaptive equipment/mobility aids from home or obtain and provide as needed 20. Consult pharmacy regarding effects of med's affecting mobility, cognition, and alternatives 21. Obtain physician order for PT if risk factors associated with mobility are present 22. Obtain physician order for OT as appropriate 23. Utilize diversional activities 24. Educate patient and patient access services representative how to maintain a safe environment during visitation times (notify nurse prior to leaving bedside) 25. Consider appropriateness of medical or non-biomedical engineering technologist 26. Set up voiding schedule as appropriate (every 2 hours) Outcome: Progressing Note: Evaluation of progress towards goal: Patient is oriented to their environment, area is free from hazards, and hourly rounding is done. The bed alarm is on, bed is in lowest position, and call light is in reach. Fall risk armband is on patient. [facility] 10-01-2024 Plan of care note Problem: Pain Goal: Patient goal is pain score less than 4, able to rest, and participant in treatment plan as appropriate Description: INTERVENTIONS: 1. Encourage patient or legal access services representative to report early pain and ask for pain medicine when needed 2. Assess pain using appropriate pain scale and include the scale used when documenting 3. Administer analgesics based on type and severity of pain and evaluate response within appropriate time frame 4. Implement non-pharmacological measures as appropriate and evaluate response 5. Consider cultural and social influences on pain and pain management 6. Notify LIP if interventions ineffective or patient reports new pain 7. Monitor vital signs including pulse ox, end-tidal CO2 based on pain intervention 8. Reassess pain per policy 9. Teach patient or legal access services representative interventions for comforting Outcome: Progressing Note: Evaluation of progress towards goal: patient will verbalize acceptable pain score and alert care team of any pain concerns. Problem: Safety Goal: Patient will be injury free during hospitalization Description: INTERVENTIONS: 1. Assess patient's risk for falls and implement fall prevention plan of care per policy 2. Provide and maintain a safe environment 3. Proper use of double Identifiers 4. Medication administration using the 5 rights 5. Hand hygiene 6. Specimens are labeled at the bedside 7. Instruct patient/ patient access services representative about use of safety devices 8. Include patient/ patient access services representative in decisions related to safety Outcome: Progressing Note: Evaluation of progress towards goal: .pt will remain free from falls throughout hospital stay. Double identifiers used for proper pt identification to prevent safety risks. Problem: Infection Goal: Absence of infection during hospitalization Description: INTERVENTIONS 1. Assess and monitor for signs and symptoms of infection. 2. Monitor lab/diagnostic results. 3. Monitor all insertion sites i.e., indwelling lines, tubes and drains. 4. Monitor endotracheal (as able) and nasal secretions for changes in amount and color. 5. Administer medications as ordered. 6. Instruct and encourage patient and family to use good hand hygiene technique. 7. Identify and instruct patient/patient access services representative in use of appropriate isolation precautions for identified infection/symptoms. 8. Provide and discuss with patient/patient access services representative on educational MDRO sheet. 9. Encourage and monitor nutritional status daily and consult traffic technician if indicated. 10. Implement neutropenic guidelines as needed. Outcome: Progressing Note: Evaluation of progress towards goal: pt will show no signs or symptoms of infection prior to discharge. Any unneccessary invasive lines and tubes will be removed if not medically necessary to decrease infection risk. Problem: Knowledge Deficit Goal: Patient/patient access services representative demonstrates understanding of disease process, treatment plan, medications, and discharge instructions Description: INTERVENTIONS 1. Complete learning assessment and assess knowledge base 2. Provide teaching at level of understanding 3. Provide teaching via preferred learning method(s) Outcome: Progressing Note: Evaluation of progress towards goal: pt will verbalize understanding of care plan as well as medications and procedures necessary for care. Pt will demonstrate proper use of equipment and medications needed prior to discharge. Education will be individualized to pt needs. Problem: Discharge Planning Goal: Discharge to post-acute care, other facility, or home with appropriate resources Description: Patient's goal is: INTERVENTIONS 1. Conduct assessment to determine patient/family and health care team treatment goals, and need for post-acute services based on payer coverage, community resources, and patient preferences, and barriers to discharge 2. Coordinate with Social work, Care Navigation, and Utilization Review to arrange appropriate level of services according to patient's needs based on patient preference and payer coverage in collaboration with the physician and health care team 3. Address psychosocial, clinical, and financial barriers to discharge as identified in assessment in conjunction with the patient/family and health care team 4. Consult appropriate ancillary services (i.e.. PT/OT/ST, etc) as needed 5. Communicate with and update the patient/family, physician, and health care team regarding progress on the discharge plan 6. Identify discharge learning needs (meds, wound care, etc). 7. Arrange for needed discharge transportation as appropriate Outcome: Progressing Note: Evaluation of progress towards goal: pt will understand and verbalize any barriers to discharge. Pt will also communicate with team and family members any discharge needs such as transportation and medication needs. Pt will discuss any questions or concerns with care team. Pt has orders to transfer out of ICU. Problem: Gastrointestinal - Adult Goal: Maintains or returns to baseline bowel function Description: Patient's goal is: INTERVENTIONS: 1. Assess bowel function 2. Encourage oral fluids to ensure adequate hydration 3. Administer IV fluids as ordered to ensure adequate hydration 4. Administer ordered medications as needed 5. Encourage mobilization and activity 6. Nutrition consult to assist patient with appropriate food choices 7. Nasogastric tube to suction as ordered Outcome: Progressing Note: Evaluation of progress towards goal: Pt's rectal bleeding has improved/subsided. H+H trending upwards and remain stable. Pt having regular bowel movements. Problem: Hematologic - Adult Goal: Maintains hematologic stability Description: INTERVENTIONS 1. Assess for signs and symptoms of bleeding or hemorrhage 2. Monitor labs as ordered 3. Administer supportive blood products/factors as ordered and appropriate 4. [place] and maintain bleeding precautions Outcome: Progressing Note: Evaluation of progress towards goal: Pt's H+H being monitored at least Q6H, remains stable at this time, no evidence of bleeding noted. [facility] 10-01-2024 Plan of care note Problem: Pain Goal: Patient goal is pain score less than 4, able to rest, and participant in treatment plan as appropriate Description: INTERVENTIONS: 1. Encourage patient or legal access services representative to report early pain and ask for pain medicine when needed 2. Assess pain using appropriate pain scale and include the scale used when documenting 3. Administer analgesics based on type and severity of pain and evaluate response within appropriate time frame 4. Implement non-pharmacological measures as appropriate and evaluate response 5. Consider cultural and social influences on pain and pain management 6. Notify LIP if interventions ineffective or patient reports new pain 7. Monitor vital signs including pulse ox, end-tidal CO2 based on pain intervention 8. Reassess pain per policy 9. Teach patient or legal access services representative interventions for comforting Outcome: Progressing Note: Evaluation of progress towards goal: patient comfort measures taken into consideration, medication given when needed Problem: Safety Goal: Patient will be injury free during hospitalization Description: INTERVENTIONS: 1. Assess patient's risk for falls and implement fall prevention plan of care per policy 2. Provide and maintain a safe environment 3. Proper use of double Identifiers 4. Medication administration using the 5 rights 5. Hand hygiene 6. Specimens are labeled at the bedside 7. Instruct patient/ patient access services representative about use of safety devices 8. Include patient/ patient access services representative in decisions related to safety Outcome: Progressing Note: Evaluation of progress towards goal: patient has remained injury free, bed in lowest position, usable items within reach, safety measures maintained. Problem: Infection Goal: Absence of infection during hospitalization Description: INTERVENTIONS 1. Assess and monitor for signs and symptoms of infection. 2. Monitor lab/diagnostic results. 3. Monitor all insertion sites i.e., indwelling lines, tubes and drains. 4. Monitor endotracheal (as able) and nasal secretions for changes in amount and color. 5. Administer medications as ordered. 6. Instruct and encourage patient and family to use good hand hygiene technique. 7. Identify and instruct patient/patient access services representative in use of appropriate isolation precautions for identified infection/symptoms. 8. Provide and discuss with patient/patient access services representative on educational MDRO sheet. 9. Encourage and monitor nutritional status daily and consult traffic technician if indicated. 10. Implement neutropenic guidelines as needed. Outcome: Progressing Note: Evaluation of progress towards goal: patient temperature remains within limits, antibiotics given when indicated, hygiene maintained. Problem: Knowledge Deficit Goal: Patient/patient access services representative demonstrates understanding of disease process, treatment plan, medications, and discharge instructions Description: INTERVENTIONS 1. Complete learning assessment and assess knowledge base 2. Provide teaching at level of understanding 3. Provide teaching via preferred learning method(s) Outcome: Progressing Note: Evaluation of progress towards goal: regularly educating patient when appropriate, answering any questions family or patient may have, providing information when needed Problem: Discharge Planning Goal: Discharge to post-acute care, other facility, or home with appropriate resources Description: Patient's goal is: INTERVENTIONS 1. Conduct assessment to determine patient/family and health care team treatment goals, and need for post-acute services based on payer coverage, community resources, and patient preferences, and barriers to discharge 2. Coordinate with Social work, Care Navigation, and Utilization Review to arrange appropriate level of services according to patient's needs based on patient preference and payer coverage in collaboration with the physician and health care team 3. Address psychosocial, clinical, and financial barriers to discharge as identified in assessment in conjunction with the patient/family and health care team 4. Consult appropriate ancillary services (i.e.. PT/OT/ST, etc) as needed 5. Communicate with and update the patient/family, physician, and health care team regarding progress on the discharge plan 6. Identify discharge learning needs (meds, wound care, etc). 7. Arrange for needed discharge transportation as appropriate Outcome: Progressing Note: Evaluation of progress towards goal: continuously working with interdisciplinary team to improve patient status, patient currently in the MICU for critical care. [facility] 10-01-2024 Progress note Formatting of t his note might be different from the original. [facility] CRITICAL CARE TRANSFER NOTE Name: Ashlee Banerjee Date: 10/01/2024 Admit Date: 09/29/2024 Patient to be transferred out of the ICU. Sign-out has been called to Dr. Hudson at 12:15 PM. Critical Care will sign off at time of transfer out of ICU or 10/02/2024 at 0700 if patient does not have a bed and [facility] will assume care at that time. Please contact via patient touch if there any questions. Thank you. BEATRICE NIETO PA-C 10/01/24 [address] Work Phone: 09-30-2024 Plan of care note Problem: Pain Goal: Patient goal is pain score less than 4, able to rest, and participant in treatment plan as appropriate Description: INTERVENTIONS: 1. Encourage patient or legal access services representative to report early pain and ask for pain medicine when needed 2. Assess pain using appropriate pain scale and include the scale used when documenting 3. Administer analgesics based on type and severity of pain and evaluate response within appropriate time frame 4. Implement non-pharmacological measures as appropriate and evaluate response 5. Consider cultural and social influences on pain and pain management 6. Notify LIP if interventions ineffective or patient reports new pain 7. Monitor vital signs including pulse ox, end-tidal CO2 based on pain intervention 8. Reassess pain per policy 9. Teach patient or legal access services representative interventions for comforting Outcome: Progressing Note: Evaluation of progress towards goal: Denies pain this shift. Prn medications and non-pharmacological available for pain intervention. Pt satisfied with pain management Problem: Safety Goal: Patient will be injury free during hospitalization Description: INTERVENTIONS: 1. Assess patient's risk for falls and implement fall prevention plan of care per policy 2. Provide and maintain a safe environment 3. Proper use of double Identifiers 4. Medication administration using the 5 rights 5. Hand hygiene 6. Specimens are labeled at the bedside 7. Instruct patient/ patient access services representative about use of safety devices 8. Include patient/ patient access services representative in decisions related to safety Outcome: Progressing Note: Evaluation of progress towards goal: No injuries this shift. Safety precautions in place. Problem: Infection Goal: Absence of infection during hospitalization Description: INTERVENTIONS 1. Assess and monitor for signs and symptoms of infection. 2. Monitor lab/diagnostic results. 3. Monitor all insertion sites i.e., indwelling lines, tubes and drains. 4. Monitor endotracheal (as able) and nasal secretions for changes in amount and color. 5. Administer medications as ordered. 6. Instruct and encourage patient and family to use good hand hygiene technique. 7. Identify and instruct patient/patient access services representative in use of appropriate isolation precautions for identified infection/symptoms. 8. Provide and discuss with patient/patient access services representative on educational MDRO sheet. 9. Encourage and monitor nutritional status daily and consult traffic technician if indicated. 10. Implement neutropenic guidelines as needed. Outcome: Progressing Note: Evaluation of progress towards goal: No new s/s of infection. Problem: Knowledge Deficit Goal: Patient/patient access services representative demonstrates understanding of disease process, treatment plan, medications, and discharge instructions Description: INTERVENTIONS 1. Complete learning assessment and assess knowledge base 2. Provide teaching at level of understanding 3. Provide teaching via preferred learning method(s) Outcome: Progressing Note: Evaluation of progress towards goal: Educate pt and family and updated on POC qshift and PRN Problem: Discharge Planning Goal: Discharge to post-acute care, other facility, or home with appropriate resources Description: Patient's goal is: INTERVENTIONS 1. Conduct assessment to determine patient/family and health care team treatment goals, and need for post-acute services based on payer coverage, community resources, and patient preferences, and barriers to discharge 2. Coordinate with Social work, Care Navigation, and Utilization Review to arrange appropriate level of services according to patient's needs based on patient preference and payer coverage in collaboration with the physician and health care team 3. Address psychosocial, clinical, and financial barriers to discharge as identified in assessment in conjunction with the patient/family and health care team 4. Consult appropriate ancillary services (i.e.. PT/OT/ST, etc) as needed 5. Communicate with and update the patient/family, physician, and health care team regarding progress on the discharge plan 6. Identify discharge learning needs (meds, wound care, etc). 7. Arrange for needed discharge transportation as appropriate Outcome: Progressing Note: Evaluation of progress towards goal: Discharge planning ongoing. Tx orders to intermediate care awaiting bed assignment Problem: Potential for Compromised Skin Integrity Goal: Skin integrity is maintained or improved Description: Patient's goal is: INTERVENTIONS 1. Perform initial skin assessment on admission and as needed 2. Turn patient every 2 hours and PRN 3. Relieve pressure to bony prominences 4. Avoid shearing 5. Keep skin clean and dry 6. Alternate a full bath with partial baths for elderly 7. Apply lotion/moisturizer on skin 8. Monitor patient's hygiene practices 9. Float heels 10. Collaborate with interdisciplinary team and initiate plans and interventions as needed Outcome: Progressing Note: Evaluation of progress towards goal: No s/s of new breakdown pressure ulcer prevention in place. Goal: Patient's nutritional intake is adequate Description: Patient's goal is: INTERVENTIONS 1. Assess and monitor food intake and supplements, patient food preferences, nausea, vomiting, labs, oral cavity (gums, teeth, tongue, mucosa), proper denture fit, and cultural beliefs 2. Monitor for signs of hypoglycemia and hyperglycemia 3. Collaborate with interdisciplinary team and initiate plan and interventions as ordered 4. Monitor patient's weight 5. Assist patient with meals/food selection 6. Assist patient with eating 7. Allow adequate time for meals 8. Provide pleasant environment during mealtime 9. Increase social contact during mealtimes 10. Plan activities to conserve energy 11. Encourage/perform oral hygiene as appropriate 12. Encourage patient to take dietary supplement as ordered 13. Collaborate with clinical traffic technician 14. Include patient/ patient's access services representative in decisions related to nutrition Outcome: Progressing Note: Evaluation of progress towards goal: Pt advanced to clear liquid (no red coloring). Tolerating well Problem: Urinary Incontinence Goal: Perineal skin integrity is maintained or improved Description: INTERVENTIONS 1. Assess genitourinary system, perineal skin, labs (urinalysis), and history of incontinence to include past management, aggravating, and alleviating factors 2. Keep skin clean and dry 3. Apply skin protectant 4. Develop skin care regimen 5. Provide privacy when changing patients incontinence device to maintain their dignity 6. Consider placing an indwelling catheter 7. Collaborate with interdisciplinary team and initiate plans and interventions as needed Outcome: Progressing Note: Evaluation of progress towards goal: Bladder stimulator in place. Pt ambulating to bathroom. Voids without difficulty Problem: Moderate - High Risk Fall Score Description: Almazan Fall Score of =/> 25 or indicated by [facility] Assessment Goal: Patient should be free from fall Description: Interventions: 1. Harmans to environment 2. Hourly rounds addressing the 4 P's (Pain, Positioning, Possessions, Potty) 3. Clear area of hazards (spills, clutter, electrical cords, unnecessary equipment) 4. Place equipment (bed & TV controls, call light, phone, urinal) within reach 5. Encourage patient to wear glasses and hearing aides as appropriate 6. Maintain bed in lowest position 7. Lock wheels on bed/wheelchair 8. Provide adequate lighting, including night light 9. Assess need for additional bedding, food/fluids, pain med's prior to sleep/routinely 10. Provide gripper slippers or personal non-skid footwear 11. Teach patient and patient access services representative to maintain environment for safety and engage in all aspects of fall prevention program 12. Remind patient to call for help before getting out of bed 13. Initiate bed/chair/exit alarms supportive devices as appropriate, (chair wedge, no-skid floor mat, raised edge mattress, hip protectors) 14. Locate patient bed assignment for optimal visualization 15. Evaluate and identify Safe Patient Handling Equipment needs 16. Provide supervision when out of bed or chair 17. Utilize gait belt as needed to assist with ambulation 18. Place adaptive equipment (cane, walker) within reach 19. Request patient access services representative bring adaptive equipment/mobility aids from home or obtain and provide as needed 20. Consult pharmacy regarding effects of med's affecting mobility, cognition, and alternatives 21. Obtain physician order for PT if risk factors associated with mobility are present 22. Obtain physician order for OT as appropriate 23. Utilize diversional activities 24. Educate patient and patient access services representative how to maintain a safe environment during visitation times (notify nurse prior to leaving bedside) 25. Consider appropriateness of medical or non-biomedical engineering technologist 26. Set up voiding schedule as appropriate (every 2 hours) Outcome: Progressing Note: Evaluation of progress towards goal: No falls this shift. Fall precautions in place. Pt activity up with assist. Turns self Problem: Spiritual Needs Goal: Ability to function at adequate level Description: INTERVENTIONS 1. Assist patient in evaluation of resources/support systems available 2. Encourage verbalization of feelings/concerns/expectations 3. Provide quiet environment 4. Be available and sensitive to patient's needs 5. Communicate referral to pastoral care as appropriate 6. Collaborate with case management/social work case manager for discharge needs Outcome: Progressing Note: Evaluation of progress towards goal: Pt able to adequately express needs. Problem: Gastrointestinal - Adult Goal: Maintains or returns to baseline bowel function Description: Patient's goal is: INTERVENTIONS: 1. Assess bowel function 2. Encourage oral fluids to ensure adequate hydration 3. Administer IV fluids as ordered to ensure adequate hydration 4. Administer ordered medications as needed 5. Encourage mobilization and activity 6. Nutrition consult to assist patient with appropriate food choices 7. Nasogastric tube to suction as ordered Outcome: Progressing Note: Evaluation of progress towards goal: Pt without bloody stools this shift. Problem: Metabolic/Fluid and Electrolytes - Adult Goal: Electrolytes maintained within normal limits Description: INTERVENTIONS 1. Monitor for signs and symptoms of hypovolemia (tachycardia, rapid breathing, decreased urine output, postural hypotension, sunken fontanel) 2. Monitor for signs and symptoms of hypervolemia (strong rapid pulse, rapid breathing, crackles heard in lung geiger, edema, decreased urine output, sudden weight gain, distended neck veins in older children, enlarged liver and spleen) 1. Monitor intake and output 2. Monitor pt's weight 1. Monitor labs and assess patient for signs and symptoms of electrolyte imbalances 2. Administer electrolyte replacement as ordered 3. Monitor response to electrolyte replacements, including repeat lab results as appropriate 4. Fluid restriction or hydration as ordered 5. Instruct patient/ legal access services representative on nutrition/diet; fluid/hydration restrictions as appropriate Outcome: Progressing Note: Evaluation of progress towards goal: Monitor e-lytes and replace per protocol Problem: Hematologic - Adult Goal: Maintains hematologic stability Description: INTERVENTIONS 1. Assess for signs and symptoms of bleeding or hemorrhage 2. Monitor labs as ordered 3. Administer supportive blood products/factors as ordered and appropriate 4. [place] and maintain bleeding precautions Outcome: Progressing Note: Evaluation of progress towards goal: No s/s of bleeding, q8h H&H checks. Hgb remains stable. [facility] 09-30-2024 Progress note Formatting of t his note might be different from the original. [facility] CRITICAL CARE SIGN-OFF NOTE Name: Ashlee Banerjee Date: 09/30/2024 Admit Date: 09/29/2024 Patient to be transferred out of the ICU. Sign-out has been called to Dr. Jackson at 3:19 PM. Critical Care will sign off at time of transfer out of ICU. Please call Critical Care GRICELDA at if there any questions. Thank you. LISBET BRUSH MD [facility] 09-30-2024 Plan of care note Problem: Pain Goal: Patient goal is pain score less than 4, able to rest, and participant in treatment plan as appropriate Description: INTERVENTIONS: 1. Encourage patient or legal access services representative to report early pain and ask for pain medicine when needed 2. Assess pain using appropriate pain scale and include the scale used when documenting 3. Administer analgesics based on type and severity of pain and evaluate response within appropriate time frame 4. Implement non-pharmacological measures as appropriate and evaluate response 5. Consider cultural and social influences on pain and pain management 6. Notify LIP if interventions ineffective or patient reports new pain 7. Monitor vital signs including pulse ox, end-tidal CO2 based on pain intervention 8. Reassess pain per policy 9. Teach patient or legal access services representative interventions for comforting 09/30/2024 1052 by AURORA Diaz Outcome: Progressing Note: Evaluation of progress towards goal: Patient denies pain at this time; repositioned for comfort; PRN pain medication if needed. 09/30/2024 103 by AURORA Diaz Outcome: Progressing Note: Evaluation of progress towards goal: Patient denies pain at this time; repositioned for comfort; PRN pain medication if needed. Problem: Safety Goal: Patient will be injury free during hospitalization Description: INTERVENTIONS: 1. Assess patient's risk for falls and implement fall prevention plan of care per policy 2. Provide and maintain a safe environment 3. Proper use of double Identifiers 4. Medication administration using the 5 rights 5. Hand hygiene 6. Specimens are labeled at the bedside 7. Instruct patient/ patient access services representative about use of safety devices 8. Include patient/ patient access services representative in decisions related to safety 09/30/2024 105 by AURORA Diaz Outcome: Progressing Note: Evaluation of progress towards goal: Patient safety maintained; remains free from injury 09/30/2024 103 by AURORA Diaz Outcome: Progressing Note: Evaluation of progress towards goal: Patient safety maintained; remains free from injury Problem: Infection Goal: Absence of infection during hospitalization Description: INTERVENTIONS 1. Assess and monitor for signs and symptoms of infection. 2. Monitor lab/diagnostic results. 3. Monitor all insertion sites i.e., indwelling lines, tubes and drains. 4. Monitor endotracheal (as able) and nasal secretions for changes in amount and color. 5. Administer medications as ordered. 6. Instruct and encourage patient and family to use good hand hygiene technique. 7. Identify and instruct patient/patient access services representative in use of appropriate isolation precautions for identified infection/symptoms. 8. Provide and discuss with patient/patient access services representative on educational MDRO sheet. 9. Encourage and monitor nutritional status daily and consult traffic technician if indicated. 10. Implement neutropenic guidelines as needed. 09/30/2024 105 by AURORA Diaz Outcome: Progressing Note: Evaluation of progress towards goal: No active infections 09/30/20241034 by AURORA Diaz Outcome: Progressing Note: Evaluation of progress towards goal: Patient afebrile; vitals stable; antibiotic therapy continues Problem: Knowledge Deficit Goal: Patient/patient access services representative demonstrates understanding of disease process, treatment plan, medications, and discharge instructions Description: INTERVENTIONS 1. Complete learning assessment and assess knowledge base 2. Provide teaching at level of understanding 3. Provide teaching via preferred learning method(s) 09/30/20241051 by AURORA Diaz Outcome: Progressing Note: Evaluation of progress towards goal: pt updated on POC 09/30/20241034 by AURORA Diaz Outcome: Progressing Note: Evaluation of progress towards goal: pt updated on POC Problem: Discharge Planning Goal: Discharge to post-acute care, other facility, or home with appropriate resources Description: Patient's goal is: INTERVENTIONS 1. Conduct assessment to determine patient/family and health care team treatment goals, and need for post-acute services based on payer coverage, community resources, and patient preferences, and barriers to discharge 2. Coordinate with Social work, Care Navigation, and Utilization Review to arrange appropriate level of services according to patient's needs based on patient preference and payer coverage in collaboration with the physician and health care team 3. Address psychosocial, clinical, and financial barriers to discharge as identified in assessment in conjunction with the patient/family and health care team 4. Consult appropriate ancillary services (i.e.. PT/OT/ST, etc) as needed 5. Communicate with and update the patient/family, physician, and health care team regarding progress on the discharge plan 6. Identify discharge learning needs (meds, wound care, etc). 7. Arrange for needed discharge transportation as appropriate 09/30/20241051 by AURORA Diaz Outcome: Progressing Note: Evaluation of progress towards goal: pt has d/c planning 09/30/20241034 by AURORA Diaz Outcome: Progressing Note: Evaluation of progress towards goal: pt has d/c planning Problem: Potential for Compromised Skin Integrity Goal: Skin integrity is maintained or improved Description: Patient's goal is: INTERVENTIONS 1. Perform initial skin assessment on admission and as needed 2. Turn patient every 2 hours and PRN 3. Relieve pressure to bony prominences 4. Avoid shearing 5. Keep skin clean and dry 6. Alternate a full bath with partial baths for elderly 7. Apply lotion/moisturizer on skin 8. Monitor patient's hygiene practices 9. Float heels 10. Collaborate with interdisciplinary team and initiate plans and interventions as needed 09/30/2024 1052 by AURORA Diaz Outcome: Progressing Note: Evaluation of progress towards goal: No new skin breakdown noted; turning patient every 2 hours per protocol 09/30/2024 1035 by AURORA Diaz Outcome: Progressing Note: Evaluation of progress towards goal: No new skin breakdown noted; turning patient every 2 hours per protocol Goal: Patient's nutritional intake is adequate Description: Patient's goal is: INTERVENTIONS 1. Assess and monitor food intake and supplements, patient food preferences, nausea, vomiting, labs, oral cavity (gums, teeth, tongue, mucosa), proper denture fit, and cultural beliefs 2. Monitor for signs of hypoglycemia and hyperglycemia 3. Collaborate with interdisciplinary team and initiate plan and interventions as ordered 4. Monitor patient's weight 5. Assist patient with meals/food selection 6. Assist patient with eating 7. Allow adequate time for meals 8. Provide pleasant environment during mealtime 9. Increase social contact during mealtimes 10. Plan activities to conserve energy 11. Encourage/perform oral hygiene as appropriate 12. Encourage patient to take dietary supplement as ordered 13. Collaborate with clinical traffic technician 14. Include patient/ patient's access services representative in decisions related to nutrition 09/30/2024 1052 by AURORA Diaz Outcome: Progressing Note: Evaluation of progress towards goal: pt has clear liquid diet 09/30/2024 1035 by AURORA Diaz Outcome: Progressing Note: Evaluation of progress towards goal: trickle TF Problem: Urinary Incontinence Goal: Perineal skin integrity is maintained or improved Description: INTERVENTIONS 1. Assess genitourinary system, perineal skin, labs (urinalysis), and history of incontinence to include past management, aggravating, and alleviating factors 2. Keep skin clean and dry 3. Apply skin protectant 4. Develop skin care regimen 5. Provide privacy when changing patients incontinence device to maintain their dignity 6. Consider placing an indwelling catheter 7. Collaborate with interdisciplinary team and initiate plans and interventions as needed 09/30/2024 1052 by AURORA Diaz Outcome: Progressing Note: Evaluation of progress towards goal: No new skin breakdown noted; turning patient every 2 hours per protocol 09/30/2024 1035 by AURORA Diaz Outcome: Progressing Note: Evaluation of progress towards goal: No new skin breakdown noted; turning patient every 2 hours per protocol Problem: Moderate - High Risk Fall Score Description: Almazan Fall Score of =/> 25 or indicated by [facility] Assessment Goal: Patient should be free from fall Description: Interventions: 1. Harmans to environment 2. Hourly rounds addressing the 4 P's (Pain, Positioning, Possessions, Potty) 3. Clear area of hazards (spills, clutter, electrical cords, unnecessary equipment) 4. Place equipment (bed & TV controls, call light, phone, urinal) within reach 5. Encourage patient to wear glasses and hearing aides as appropriate 6. Maintain bed in lowest position 7. Lock wheels on bed/wheelchair 8. Provide adequate lighting, including night light 9. Assess need for additional bedding, food/fluids, pain med's prior to sleep/routinely 10. Provide gripper slippers or personal non-skid footwear 11. Teach patient and patient access services representative to maintain environment for safety and engage in all aspects of fall prevention program 12. Remind patient to call for help before getting out of bed 13. Initiate bed/chair/exit alarms supportive devices as appropriate, (chair wedge, no-skid floor mat, raised edge mattress, hip protectors) 14. Locate patient bed assignment for optimal visualization 15. Evaluate and identify Safe Patient Handling Equipment needs 16. Provide supervision when out of bed or chair 17. Utilize gait belt as needed to assist with ambulation 18. Place adaptive equipment (cane, walker) within reach 19. Request patient access services representative bring adaptive equipment/mobility aids from home or obtain and provide as needed 20. Consult pharmacy regarding effects of med's affecting mobility, cognition, and alternatives 21. Obtain physician order for PT if risk factors associated with mobility are present 22. Obtain physician order for OT as appropriate 23. Utilize diversional activities 24. Educate patient and patient access services representative how to maintain a safe environment during visitation times (notify nurse prior to leaving bedside) 25. Consider appropriateness of medical or non-biomedical engineering technologist 26. Set up voiding schedule as appropriate (every 2 hours) 09/30/2024 1052 by AURORA Diaz Outcome: Progressing Note: Evaluation of progress towards goal: Patient safety maintained; remains free from injury 09/30/2024 1035 by AURORA Diaz Outcome: Progressing Note: Evaluation of progress towards goal: Patient safety maintained; remains free from injury Problem: Spiritual Needs Goal: Ability to function at adequate level Description: INTERVENTIONS 1. Assist patient in evaluation of resources/support systems available 2. Encourage verbalization of feelings/concerns/expectations 3. Provide quiet environment 4. Be available and sensitive to patient's needs 5. Communicate referral to pastoral care as appropriate 6. Collaborate with case management/social work case manager for discharge needs 09/30/2024 1052 by AURORA Diaz Outcome: Progressing Note: Evaluation of progress towards goal: 09/30/2024 1035 by AURORA Diaz Outcome: Progressing Note: Evaluation of progress towards goal: [facility] 09-30-2024 Consult note Associated Order (s): IP CONSULT TO GASTROENTEROLOGY [facility] Initial Gastroenterology/Hepatology Consultation Note IDENTIFYING DATA PATIENT: Ashlee Banerjee ADMIT DATE: 09/29/2024 TIME OF EVALUATION: 09/30/2024 9:19 AM Reason for Consult: Melena and anemia. HISTORY OF PRESENT ILLNESS Ashlee Banerjee is a 73 y.o. woman with past medical history significant for hypertension, biopsy-proven primary biliary cholangitis with advanced fibrosis/cirrhosis based on transjugular biopsy done on September 20, 2024 at [facility] (pathology showed changes compatible with PVC and stage 3-4 fibrosis), history of GAVE 1st week of August (this is per patient history, this was done at [facility] and no records are available. Patient reports that after she had her liver biopsy done on September 20 she noted frequent bowel movement with black stools, she thinks that this happened immediately a day after her liver biopsy. She denied any prior history of melena. She also noted some upper abdominal pain/discomfort. She was evaluated at outside facility in [place] and her hemoglobin was 6.8. She received 2 units of packed red blood cells. Initially patient required pressors but was weaned off quickly. Her most recent hemoglobin was 8.3 today. Patient reports no bowel movements for the last 3 days. Her pain in the upper part of the abdomen has subsided. She had mild nausea but no vomiting. GI HISTORY SUMMARY TABLE Last EGD Last colonoscopy Primary GI physician Sukumar PAST MEDICAL, SURGICAL, FAMILY, and SOCIAL HISTORY No past medical history on file. No past surgical history on file. No family history on file. Social History: MEDICATIONS Allergies: Allergies Allergen Reactions Cyclobenzaprine Uxzaalp-Bxmitxacxb-Ywqzyk-Soy Morphine Nickel Penicillins Sulfites No medications prior to admission. Current Medications: @MEDSCURRENTMD@ PRNs: calcium gluconate, 1,000 mg, PRN Or calcium gluconate, 2,000 mg, PRN Or calcium gluconate, 3,000 mg, PRN dextrose, 15 g, PRN dextrose 5 % in water, 100 mL/hr, Continuous PRN dextrose 50 % in water (D50W), 25 mL, PRN fentaNYL, 50 mcg, Q2H PRN Or fentaNYL, 25 mcg, Q2H PRN glucagon (human recombinant), 1 mg, PRN magnesium sulfate, 2,000 mg, PRN Or magnesium sulfate, 4,000 mg, PRN potassium chloride, 20-40 mEq, PRN Or potassium chloride, 20-40 mEq, PRN potassium chloride in water, 10 mEq, PRN Or potassium chloride in water, 10 mEq, PRN sodium chloride 0.9 %, 10 mL/hr, Continuous PRN sodium chloride 0.9 %, 10 mL/hr, Continuous PRN sodium chloride 0.9 %, 10 mL/hr, Continuous PRN REVIEW OF SYSTEMS Review of Systems Constitutional: Negative for fever, chills and unexpected weight change. HENT: Negative for trouble swallowing. Respiratory: Negative for cough and shortness of breath. Cardiovascular: Negative for chest pain and chest discomfort. Gastrointestinal: Positive for nausea, abdominal pain and black tarry stool. Negative for vomiting. Endocrine: Negative for cold intolerance and heat intolerance. Genitourinary: Negative for dysuria and difficulty urinating. Skin: Positive for pallor. Negative for rash. Psychiatric/Behavioral: Negative for agitation and behavioral problems. OBJECTIVE DATA Vitals: BP 133/69 Pulse 74 Temp 36.4 C (97.5 F) (Oral) Resp 15 Ht 154.9 cm (5' 1 ) Wt 72.8 kg (160 lb 6.4 oz) SpO2 94% BMI 30.31 kg/m Physical Exam Constitutional She is oriented to person, place, and time. She appears well-developed and well-nourished. HENT Head Normocephalic and atraumatic. Cardiovascular: Normal rate and regular rhythm. Pulmonary/Chest: Effort normal. No respiratory distress. Abdominal: She exhibits no distension and no mass. Soft. There is abdominal tenderness. There is no guarding. Mild tenderness on deep palpation of the epigastric area. Neurological She is alert and oriented to person, place, and time. Psychiatric: She has a normal mood and affect. Her behavior is normal. LABS AND IMAGING CBC: Lab Results Component Value Date WBC 4.0 09/29/2024 HGB 8.3 (L) 09/30/2024 HCT 24.4 (L) 09/30/2024 MCV 87 09/29/2024 RDW 15.2 (H) 09/29/2024 RDW 13.3 05/01/2015 PLT 61 (L) 09/29/2024 CMP: Lab Results Component Value Date K 4.0 09/29/2024 CL 120 (H) 09/29/2024 CL 101 05/01/2015 CO2 16 (L) 09/29/2024 BUN 48 (H) 09/29/2024 GLU 119 (H) 09/29/2024 GLU 143 (H) 09/29/2024 GLU 141 (H) 05/21/2015 Lipase: No components found for: LIP Ionized Calcium: No components found for: IONCA Magnesium: No results found for: MG Phosphorus: No components found for: PO4 PT/INR: Lab Results Component Value Date INR 1.4 (H) 09/29/2024 TSH: No results found for: TSH VITAMIN B12: No components found for: B12 FOLATE: No results found for: FOLATE IRON: No results found for: FE Iron Saturation: No components found for: PERCENTFESAT TIBC: No results found for: TIBC FERRITIN: No results found for: FERRITIN ANDREE: No results found for: ANATITER , TITER2 MICRO Blood Culture: No components found for: CBLOOD , CFUNGUSBL Stool Culture: No components found for: CSTOOL IMAGING: No results found. ASSESSMENT AND PLAN Ashlee Banerjee is a 73 y.o. woman with past medical history significant for hypertension, biopsy-proven primary biliary cholangitis with advanced fibrosis/cirrhosis based on transjugular liver biopsy biopsy done on September 20, 2024 at [facility] (pathology showed changes compatible with PVC and stage 3-4 fibrosis), history of GAVE on EGD that was performed on the week of August (this is per patient history, this was done at [facility] and no records are available. Patient presented with of melena the day after her liver biopsy associated with upper abdominal discomfort. Patient reports that she never had melena before this. She was found to have hemoglobin of 6.8 with some hypotension. She received 2 units of packed red blood cells with significant improvement in hemoglobin up to 8.3 this morning. Patient denies any melena for the last 3 days. Her abdominal pain seems to have subsided. The differential diagnosis for her melena includes; hemobilia secondary to her liver biopsy, bleeding from GAVE Given the good response to blood transfusion, and the lack of episodes of melena for the last 3 days. I discussed with patient proceeding with upper GI endoscopy on Wednesday to rule out bleeding from the luminal part of the upper GI tract, if there is any further drop or any overt GI bleeding then will plan on doing the EGD this weekend. In the meanwhile, continue IV Protonix and monitoring H&H if 6-8 hours and transfuse to keep hemoglobin at 7 or more. Hepatobiliary surgery Service are evaluating the patient for reports of cholelithiasis and biliary sludge in the gallbladder. We will continue to follow along to determine if there is any further testing is needed. Thank you for allowing us to participate in the care of Ashlee Banerjee. [place] [address] PH: [phone] [facility]24 Consult note Associated Order (s): IP CONSULT TO GASTROENTEROLOGY [facility] Initial Gastroenterology/Hepatology Consultation Note IDENTIFYING DATA PATIENT: Ashlee Banerjee ADMIT DATE: 09/29/2024 TIME OF EVALUATION: 09/30/2024 9:19 AM Reason for Consult: Melena and anemia. HISTORY OF PRESENT ILLNESS Ashlee Banerjee is a 73 y.o. woman with past medical history significant for hypertension, biopsy-proven primary biliary cholangitis with advanced fibrosis/cirrhosis based on transjugular biopsy done on September 20, 2024 at [facility] (pathology showed changes compatible with PVC and stage 3-4 fibrosis), history of GAVE 1st week of August (this is per patient history, this was done at [facility] and no records are available. Patient reports that after she had her liver biopsy done on September 20 she noted frequent bowel movement with black stools, she thinks that this happened immediately a day after her liver biopsy. She denied any prior history of melena. She also noted some upper abdominal pain/discomfort. She was evaluated at outside facility in [place] and her hemoglobin was 6.8. She received 2 units of packed red blood cells. Initially patient required pressors but was weaned off quickly. Her most recent hemoglobin was 8.3 today. Patient reports no bowel movements for the last 3 days. Her pain in the upper part of the abdomen has subsided. She had mild nausea but no vomiting. GI HISTORY SUMMARY TABLE Last EGD Last colonoscopy Primary GI physician Sukumar PAST MEDICAL, SURGICAL, FAMILY, and SOCIAL HISTORY No past medical history on file. No past surgical history on file. No family history on file. Social History: MEDICATIONS Allergies: Allergies Allergen Reactions Cyclobenzaprine Fesweoj-Tzlsqyiahi-Ybqlwh-Soy Morphine Nickel Penicillins Sulfites No medications prior to admission. Current Medications: @MEDSCURRENTMD@ PRNs: calcium gluconate, 1,000 mg, PRN Or calcium gluconate, 2,000 mg, PRN Or calcium gluconate, 3,000 mg, PRN dextrose, 15 g, PRN dextrose 5 % in water, 100 mL/hr, Continuous PRN dextrose 50 % in water (D50W), 25 mL, PRN fentaNYL, 50 mcg, Q2H PRN Or fentaNYL, 25 mcg, Q2H PRN glucagon (human recombinant), 1 mg, PRN magnesium sulfate, 2,000 mg, PRN Or magnesium sulfate, 4,000 mg, PRN potassium chloride, 20-40 mEq, PRN Or potassium chloride, 20-40 mEq, PRN potassium chloride in water, 10 mEq, PRN Or potassium chloride in water, 10 mEq, PRN sodium chloride 0.9 %, 10 mL/hr, Continuous PRN sodium chloride 0.9 %, 10 mL/hr, Continuous PRN sodium chloride 0.9 %, 10 mL/hr, Continuous PRN REVIEW OF SYSTEMS Review of Systems Constitutional: Negative for fever, chills and unexpected weight change. HENT: Negative for trouble swallowing. Respiratory: Negative for cough and shortness of breath. Cardiovascular: Negative for chest pain and chest discomfort. Gastrointestinal: Positive for nausea, abdominal pain and black tarry stool. Negative for vomiting. Endocrine: Negative for cold intolerance and heat intolerance. Genitourinary: Negative for dysuria and difficulty urinating. Skin: Positive for pallor. Negative for rash. Psychiatric/Behavioral: Negative for agitation and behavioral problems. OBJECTIVE DATA Vitals: BP 133/69 Pulse 74 Temp 36.4 C (97.5 F) (Oral) Resp 15 Ht 154.9 cm (5' 1 ) Wt 72.8 kg (160 lb 6.4 oz) SpO2 94% BMI 30.31 kg/m Physical Exam Constitutional She is oriented to person, place, and time. She appears well-developed and well-nourished. HENT Head Normocephalic and atraumatic. Cardiovascular: Normal rate and regular rhythm. Pulmonary/Chest: Effort normal. No respiratory distress. Abdominal: She exhibits no distension and no mass. Soft. There is abdominal tenderness. There is no guarding. Mild tenderness on deep palpation of the epigastric area. Neurological She is alert and oriented to person, place, and time. Psychiatric: She has a normal mood and affect. Her behavior is normal. LABS AND IMAGING CBC: Lab Results Component Value Date WBC 4.0 09/29/2024 HGB 8.3 (L) 09/30/2024 HCT 24.4 (L) 09/30/2024 MCV 87 09/29/2024 RDW 15.2 (H) 09/29/2024 RDW 13.3 05/01/2015 PLT 61 (L) 09/29/2024 CMP: Lab Results Component Value Date K 4.0 09/29/2024 CL 120 (H) 09/29/2024 CL 101 05/01/2015 CO2 16 (L) 09/29/2024 BUN 48 (H) 09/29/2024 GLU 119 (H) 09/29/2024 GLU 143 (H) 09/29/2024 GLU 141 (H) 05/21/2015 Lipase: No components found for: LIP Ionized Calcium: No components found for: IONCA Magnesium: No results found for: MG Phosphorus: No components found for: PO4 PT/INR: Lab Results Component Value Date INR 1.4 (H) 09/29/2024 TSH: No results found for: TSH VITAMIN B12: No components found for: B12 FOLATE: No results found for: FOLATE IRON: No results found for: FE Iron Saturation: No components found for: PERCENTFESAT TIBC: No results found for: TIBC FERRITIN: No results found for: FERRITIN ANDREE: No results found for: ANATITER , TITER2 MICRO Blood Culture: No components found for: CBLOOD , CFUNGUSBL Stool Culture: No components found for: CSTOOL IMAGING: No results found. ASSESSMENT AND PLAN Ashlee Banerjee is a 73 y.o. woman with past medical history significant for hypertension, biopsy-proven primary biliary cholangitis with advanced fibrosis/cirrhosis based on transjugular liver biopsy biopsy done on September 20, 2024 at [facility] (pathology showed changes compatible with PVC and stage 3-4 fibrosis), history of GAVE on EGD that was performed on the week of August (this is per patient history, this was done at [facility] and no records are available. Patient presented with of melena the day after her liver biopsy associated with upper abdominal discomfort. Patient reports that she never had melena before this. She was found to have hemoglobin of 6.8 with some hypotension. She received 2 units of packed red blood cells with significant improvement in hemoglobin up to 8.3 this morning. Patient denies any melena for the last 3 days. Her abdominal pain seems to have subsided. The differential diagnosis for her melena includes; hemobilia secondary to her liver biopsy, bleeding from GAVE Given the good response to blood transfusion, and the lack of episodes of melena for the last 3 days. I discussed with patient proceeding with upper GI endoscopy on Wednesday to rule out bleeding from the luminal part of the upper GI tract, if there is any further drop or any overt GI bleeding then will plan on doing the EGD this weekend. In the meanwhile, continue IV Protonix and monitoring H&H if 6-8 hours and transfuse to keep hemoglobin at 7 or more. Hepatobiliary surgery Service are evaluating the patient for reports of cholelithiasis and biliary sludge in the gallbladder. We will continue to follow along to determine if there is any further testing is needed. Thank you for allowing us to participate in the care of Ashlee Banerjee. [place] [address] PH: [phone] Associated Order(s): IP CONSULT TO GENERAL SURGERY Images from the original note were not included. Hepatobiliary, Pancreas, and Endocrine Surgery CONSULTATION Patient Name: Ashlee Banerjee Admit Date: 09/29/2024 Length of Stay: 1 Days Admitting Physician: Lisbet Brush MD Reason for Consult: Cholelithiasis; Hx primary biliary cirrhosis with recent liver biopsy at [facility] september 20; current upper GIB History of Present Illness: Ashlee Banerjee is a 73 y.o. female with past medical history of primary biliary cirrhosis, hemorrhoids, hypertension, and type 2 diabetes mellitus who presented on 09/29/2024 as a transfer from outside hospital with concerns for GI bleed. Patient had a recent transjugular liver biopsy at [facility] on 09/20/2024 and since then has been experiencing epigastric/RUQ abdominal pain and darker colored stools. Patient endorses that she does have a history of hemorrhoids and has experienced blood when she wipes, however change in stool caliber and color is different than from before. Due to persistence of abdominal pain, patient was admitted to the hospital yesterday by PCP. All admitted to outside hospital, patient was noted to have an episode of syncope while going to the bathroom. Patient was noted to be hypotensive and bradycardic at that time. Labs were drawn and hemoglobin came back at 6.8. Patient was transferred to the ICU of the hospital, and given a unit of blood. CT angiogram of the abdomen and pelvis was obtained at outside hospital (images not currently available in our system) and report read as no acute bleed seen with incidental findings of cholelithiasis and sludge. Due to concerns for upper GI bleed, patient was transferred to [facility] for further workup by GI and general surgery teams. Review of Systems Constitutional: Positive for malaise/fatigue. HENT: Negative. Eyes: Negative. Cardiovascular: Negative. Respiratory: Negative. Endocrine: Negative. Hematologic/Lymphatic: Negative. Skin: Negative. Musculoskeletal: Positive for falls. Gastrointestinal: Positive for abdominal pain, melena and nausea. Genitourinary: Negative. Neurological: Negative. Allergic/Immunologic: Negative. Vascular: Negative. No past medical history on file. No past surgical history on file. Allergies Allergen Reactions Cyclobenzaprine Bjitvrs-Ylzpxylxzq-Sfaeyc-Soy Morphine Nickel Penicillins Sulfites Current Facility-Administered Medications: calcium gluconate IVPB 1000 mg/50 mL (20 mg/mL premix), 1,000 mg, intravenous, PRN OR calcium gluconate IVPB 2000 mg/100 mL (20 mg/mL premix), 2,000 mg, intravenous, PRN OR calcium gluconate 3,000 mg in sodium chloride 0.9 % 100 mL IVPB, 3,000 mg, intravenous, PRN, ALEXANDER Rubio dextrose (GLUTOSE) 40 % gel 15 g, 15 g, oral, PRN, ALEXANDER Rubio dextrose 5 % (D5W) infusion, 100 mL/hr, intravenous, Continuous PRNTj APRN-CNP dextrose 50 % in water (D50W) 50% solution 25 mL, 25 mL, intravenous, PRNTj APRN-CNP fentaNYL (SUBLIMAZE) injection 50 mcg, 50 mcg, intravenous, Q2H PRN OR fentaNYL (SUBLIMAZE) injection 25 mcg, 25 mcg, intravenous, Q2H PRNTj APRN-CNP glucagon HCL injection 1 mg, 1 mg, intramuscular, PRN, ALEXANDER Rubio magnesium sulfate IVPB 2000 mg/50 mL in iso-osmotic water (40 mg/mL premix), 2,000 mg, intravenous, PRN OR magnesium sulfate IVPB 4000 mg/100 mL in iso-osmotic water (40 mg/mL premix), 4,000 mg, intravenous, PRN, Tj Amin APRN-SKID WORKER norepinephrine (LEVOPHED) infusion 8 mg/250 mL in sod chlor 0.9% (0.032 mg/mL PMX), 0.01-0.2 mcg/kg/min (Order-Specific), intravenous, Continuous, Tj Amin APRN-SHEILA, Held at 09/29/242014 pantoprazole (PROTONIX) injection 40 mg, 40 mg, intravenous, Q12H, Tj Amin APRN-SHEILA, 40 mg at 09/29/242042 potassium chloride (K-TAB,KLOR-CON) CR tablet 20-40 mEq, 20-40 mEq, oral, PRN OR potassium chloride (KAYCIEL) 20 mEq/15 mL solution 20-40 mEq, 20-40 mEq, oral, PRN, Tj Amin, SAND CLEANING MACHINE OPERATOR-SKID WORKER potassium chloride IVPB 10 mEq/50 mL in water (0.2 mEq/mL premix), 10 mEq, intravenous, PRN OR potassium chloride IVPB 10 mEq/100 mL in water (0.1 mEq/mL premix), 10 mEq, intravenous, PRN, Tj Delaneyer, SAND CLEANING MACHINE OPERATOR-SKID WORKER sodium chloride 0.9 % infusion, 10 mL/hr, intravenous, Continuous PRN, Tj Amin, SAND CLEANING MACHINE OPERATOR-SKID WORKER sodium chloride 0.9 % infusion, 10 mL/hr, intravenous, Continuous PRN, Tj Amin, SAND CLEANING MACHINE OPERATOR-SKID WORKER sodium chloride 0.9 % infusion, 10 mL/hr, intravenous, Continuous PRN, Tj Randolphnner, SAND CLEANING MACHINE OPERATOR-SKID WORKER sodium chloride 0.9 % infusion, 75 mL/hr, intravenous, Continuous, Tj Amin APRN-SKID WORKER, Last Rate: 75 mL/hr at 09/30/24558, 75 mL/hr at 09/30/24558 Social History Socioeconomic History Marital status: Single Spouse name: Not on file Number of children: Not on file Years of education: Not on file Highest education level: Not on file Occupational History Not on file Tobacco Use Smoking status: Not on file Smokeless tobacco: Not on file Substance and Sexual Activity Alcohol use: Not on file Drug use: Not on file Sexual activity: Not on file Other Topics Concern Not on file Social History Narrative Not on file Social Drivers of Health Financial Resource Strain: Medium Risk (04/10/2024) Received from [employer] Overall Financial Resource Strain (CARDIA) Difficulty of Paying Living Expenses: Somewhat hard Food Insecurity: No Food Insecurity (09/28/2024) Received from [facility] Hunger Vital Sign Worried About Running Out of Food in the Last Year: Never true Ran Out of Food in the Last Year: Never true Transportation Needs: No Transportation Needs (09/28/2024) Received from [facility] PRAPARE - Transportation Lack of Transportation (Medical): No Lack of Transportation (Non-Medical): No Physical Activity: Insufficiently Active (04/10/2024) Received from [employer] Exercise Vital Sign Days of Exercise per Week: 3 days Minutes of Exercise per Session: 10 min Stress: Stress Concern Present (04/10/2024) Received from [employer] [place] [facility] - Occupational Stress Questionnaire Feeling of Stress : To some extent Social Connections: Moderately Integrated (04/10/2024) Received from [employer] Social Connection and Isolation Panel [NHANES] Frequency of Communication with Friends and Family: More than three times a week Frequency of Social Gatherings with Friends and Family: Twice a week Attends Sabianist Services: 1 to 4 times per year Active Member of Clubs or Organizations: Yes Attends Club or Organization Meetings: More than 4 times per year Marital Status: Never Interpersonal Safety: Patient Declined (04/10/2024) Received from [employer] Humiliation, Afraid, Rape, and Kick questionnaire Fear of Current or Ex-Partner: Patient declined Emotionally Abused: Patient declined Physically Abused: Patient declined Sexually Abused: Patient declined Housing Instability: Low Risk (09/28/2024) Received from [facility] Housing Stability Vital Sign Unable to Pay for Housing in the Last Year: No Number of Times Moved in the Last Year: 0 Homeless in the Last Year: No No family history on file. Physical Exam Constitutional: General: She is not in acute distress. Appearance: Normal appearance. HENT: Head: Normocephalic and atraumatic. Cardiovascular: Rate and Rhythm: Normal rate and regular rhythm. Pulmonary: Effort: Pulmonary effort is normal. No respiratory distress. Abdominal: General: Abdomen is flat. There is no distension. Palpations: Abdomen is soft. Tenderness: There is abdominal tenderness in the right upper quadrant. There is no guarding or rebound. Positive signs include Salomon's sign. Musculoskeletal: General: Normal range of motion. Skin: General: Skin is warm and dry. Coloration: Skin is not jaundiced. Neurological: General: No focal deficit present. Mental Status: She is alert and oriented to person, place, and time. Vital Signs: Blood pressure 113/44, pulse 72, temperature 36.7 C (98.1 F), temperature source Oral, resp. rate 18, height 154.9 cm (5' 1 ), weight 72.8 kg (160 lb 6.4 oz), SpO2 93%. Respiratory Source: O2 Device: None (Room air) Admission Weight: Weight: 72.8 kg (160 lb 6.4 oz) Labs: Lab Results Component Value Date WBC 4.0 09/29/2024 HGB 8.3 (L) 09/30/2024 HCT 24.4 (L) 09/30/2024 MCV 87 09/29/2024 PLT 61 (L) 09/29/2024 Lab Results Component Value Date GLU 119 (H) 09/29/2024 CALCIUM 7.2 (L) 09/29/2024 K 4.0 09/29/2024 CO2 16 (L) 09/29/2024 CL 120 (H) 09/29/2024 BUN 48 (H) 09/29/2024 CREATININE 1.54 (H) 09/29/2024 No results found for: AMYLASE No results found for: LIPASE Lab Results Component Value Date ALT 39 (H) 09/29/2024 AST 40 09/29/2024 ALKPHOS 121 09/29/2024 Lab Results Component Value Date INR 1.4 (H) 09/29/2024 PROTIME 15.9 (H) 09/29/2024 Imaging: CT CTA TAVR Result Date: 09/28/2024 Narrative: EXAMINATION: CTA OF THE CHEST, ABDOMEN AND [...] fracture or suspicious bone lesion is identified. Impression: 1. No aortic aneurysm or dissection. There [...] or reactive airways disease. 5. Colonic diverticulosis. TRANSCATHETER BIOPSY Result Date: 09/21/2024 Narrative: EXAM: IR HEPATIC WEDGE PRESSURE/VENO, IR TRANSCATHETER [...] 1 mg Given Rate: 0 Route: Intravenous; 11: AM 09/20/24 fentaNYL (SUBLIMAZE) injection 0-300 mcg Given 50 mcg Given Rate: 0 Route: Intravenous; 11: AM 09/20/24 midazolam (VERSED) injection 0-10 mg Given 1 mg Given Rate: 0 Route: Intravenous; 11:50 AM 09/20/24 Lidocaine 2 % injection Ordered and Given 2 mL Given Rate: 0 Route: Other; 11:51 AM 09/20/24 fentaNYL (SUBLIMAZE) injection 0-300 mcg Given 25 mcg Given Rate: 0 Route: Intravenous; 11: AM 09/20/24 midazolam (VERSED) injection 0-10 mg [...] Intravenous; TOTAL FLUORO TIME: 4.3 minutes OPERATORS: Rylie Whipple II, MD (attending), Jorge Serrano MD (resident) CONSENT: Following discussion of the risks, benefits and alternatives of the procedure, written informed consent was obtained. SEDATION: I performed Moderate Sedation which included the presence of a nurse that assisted in monitoring the patient's level of consciousness and physiologic status. After administration of sedative medication(s), I spent 33 minutes of continuous [id number] time with the patient. COMPARISON: No prior [...] wire was advanced into the IVC. A 10-Montserratian by 40 cm hemostatic sheath was placed. [...] Wedge Pressure: 13 Free Hepatic Pressure: 8 Impression: IMPRESSION: Transjugular liver biopsy performed with samples sent to pathology. Pressure measurements as above. Rylie Whipple II, MD was in the room and participated during all morales portions of this procedure. I personally viewed and interpreted these images and I have reviewed and approved this report. TIC WEDGE PRESSURE/VENO Result Date: 09/21/2024 Narrative: EXAM: IR HEPATIC WEDGE PRESSURE/VENO, IR TRANSCATHETER [...] 1 mg Given Rate: 0 Route: Intravenous; 11: AM 09/20/24 fentaNYL (SUBLIMAZE) injection 0-300 mcg Given 50 mcg Given Rate: 0 Route: Intravenous; 11: AM 09/20/24 midazolam (VERSED) injection 0-10 mg Given 1 mg Given Rate: 0 Route: Intravenous; 11: AM 09/20/24 Lidocaine 2 % injection Ordered and Given 2 mL Given Rate: 0 Route: Other; 11: AM 09/20/24 fentaNYL (SUBLIMAZE) injection 0-300 mcg Given 25 mcg Given Rate: 0 Route: Intravenous; 11: AM 09/20/24 midazolam (VERSED) injection 0-10 mg [...] Intravenous; TOTAL FLUORO TIME: 4.3 minutes OPERATORS: Rylie Whipple II, MD (attending), Jorge Serrano MD (resident) CONSENT: Following discussion of the risks, benefits and alternatives of the procedure, written informed consent was obtained. SEDATION: I performed Moderate Sedation which included the presence of a nurse that assisted in monitoring the patient's level of consciousness and physiologic status. After administration of sedative medication(s), I spent 33 minutes of continuous [id number] time with the patient. COMPARISON: No prior [...] wire was advanced into the IVC. A 10-Montserratian by 40 cm hemostatic sheath was placed. [...] Wedge Pressure: 13 Free Hepatic Pressure: 8 Impression: IMPRESSION: Transjugular liver biopsy performed with samples sent to pathology. Pressure measurements as above. Rylie Whipple II, MD was in the room and participated during all morales portions of this procedure. I personally viewed and interpreted these images and I have reviewed and approved this report. Assessment: Ashlee Banerjee is a 73 y.o.female with past medical history of primary biliary cirrhosis s/p recent transjugular liver biopsy who was admitted on 09/29/2024 for concern for upper GI bleed. Imaging reports reviewed, however images from OSH are currently not in our system. 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 Plan: Patient would likely benefit from cholecystectomy during this admission, however will defer until after patient is clinically stable GI team consulted, appreciate recommendations regarding possible EGD and/or EUS to evaluate biliary track Recommend trying to get images from outside hospital if possible Pain & nausea control as needed Monitor & replace electrolytes as needed All other care and workup per primary and other consulting teams Ramon Decker MD General Surgery, PGY-1 Hepatobiliary, Pancreas, and Endocrine Surgery 09/30/24 Cosigned by Pily Zaman MD at 09/30/2024 5:39 PM EDT Associated attestation - Pily Zaman MD - 09/30/2024 5:39 PM EDT Attending Attestation: I saw the patient. I performed the critical/morales portions of the service. I was directly involved in the management and treatment plan of the patient. I reviewed the resident's note. Additional Notes/Findings: Abdomen is soft and mildly tender. Hgb stable. CT images reviewed, no active extravasation. Will plan to follow. documented in this encounter [facility] 09-30-2024 Consult note Associated Order (s): IP CONSULT TO GENERAL SURGERY Images from the original note were not included. Hepatobiliary, Pancreas, and Endocrine Surgery CONSULTATION Patient Name: Ashlee Banerjee Admit Date: 09/29/2024 Length of Stay: 1 Days Admitting Physician: Lisbet Brush MD Reason for Consult: Cholelithiasis; Hx primary biliary cirrhosis with recent liver biopsy at [facility] september 20; current upper GIB History of Present Illness: Ashlee Banerjee is a 73 y.o. female with past medical history of primary biliary cirrhosis, hemorrhoids, hypertension, and type 2 diabetes mellitus who presented on 09/29/2024 as a transfer from outside hospital with concerns for GI bleed. Patient had a recent transjugular liver biopsy at [facility] on 09/20/2024 and since then has been experiencing epigastric/RUQ abdominal pain and darker colored stools. Patient endorses that she does have a history of hemorrhoids and has experienced blood when she wipes, however change in stool caliber and color is different than from before. Due to persistence of abdominal pain, patient was admitted to the hospital yesterday by PCP. All admitted to outside hospital, patient was noted to have an episode of syncope while going to the bathroom. Patient was noted to be hypotensive and bradycardic at that time. Labs were drawn and hemoglobin came back at 6.8. Patient was transferred to the ICU of the hospital, and given a unit of blood. CT angiogram of the abdomen and pelvis was obtained at outside hospital (images not currently available in our system) and report read as no acute bleed seen with incidental findings of cholelithiasis and sludge. Due to concerns for upper GI bleed, patient was transferred to [facility] for further workup by GI and general surgery teams. Review of Systems Constitutional: Positive for malaise/fatigue. HENT: Negative. Eyes: Negative. Cardiovascular: Negative. Respiratory: Negative. Endocrine: Negative. Hematologic/Lymphatic: Negative. Skin: Negative. Musculoskeletal: Positive for falls. Gastrointestinal: Positive for abdominal pain, melena and nausea. Genitourinary: Negative. Neurological: Negative. Allergic/Immunologic: Negative. Vascular: Negative. No past medical history on file. No past surgical history on file. Allergies Allergen Reactions Cyclobenzaprine Ilxzazr-Xastacnbpa-Znxkhi-Soy Morphine Nickel Penicillins Sulfites Current Facility-Administered Medications: calcium gluconate IVPB 1000 mg/50 mL (20 mg/mL premix), 1,000 mg, intravenous, PRN OR calcium gluconate IVPB 2000 mg/100 mL (20 mg/mL premix), 2,000 mg, intravenous, PRN OR calcium gluconate 3,000 mg in sodium chloride 0.9 % 100 mL IVPB, 3,000 mg, intravenous, PRNTj APRN-SHEILA dextrose (GLUTOSE) 40 % gel 15 g, 15 g, oral, PRNTj APRN-SHEILA dextrose 5 % (D5W) infusion, 100 mL/hr, intravenous, Continuous PRNTj APRN-CNP dextrose 50 % in water (D50W) 50% solution 25 mL, 25 mL, intravenous, PRNTj APRN-SHEILA fentaNYL (SUBLIMAZE) injection 50 mcg, 50 mcg, intravenous, Q2H PRN OR fentaNYL (SUBLIMAZE) injection 25 mcg, 25 mcg, intravenous, Q2H PRNTj APRN-SHEILA glucagon HCL injection 1 mg, 1 mg, intramuscular, PRNTj APRN-SHEILA magnesium sulfate IVPB 2000 mg/50 mL in iso-osmotic water (40 mg/mL premix), 2,000 mg, intravenous, PRN OR magnesium sulfate IVPB 4000 mg/100 mL in iso-osmotic water (40 mg/mL premix), 4,000 mg, intravenous, PRN, Tj J Eloisa, SAND CLEANING MACHINE OPERATOR-SKID WORKER norepinephrine (LEVOPHED) infusion 8 mg/250 mL in sod chlor 0.9% (0.032 mg/mL PMX), 0.01-0.2 mcg/kg/min (Order-Specific), intravenous, Continuous, Tj Amin APRN-SHEILA, Held at 09/29/242014 pantoprazole (PROTONIX) injection 40 mg, 40 mg, intravenous, Q12H, Tj Amin APRN-SHEILA, 40 mg at 09/29/242042 potassium chloride (K-TAB,KLOR-CON) CR tablet 20-40 mEq, 20-40 mEq, oral, PRN OR potassium chloride (KAYCIEL) 20 mEq/15 mL solution 20-40 mEq, 20-40 mEq, oral, PRN, Tj Amin SAND CLEANING MACHINE OPERATOR-SKID WORKER potassium chloride IVPB 10 mEq/50 mL in water (0.2 mEq/mL premix), 10 mEq, intravenous, PRN OR potassium chloride IVPB 10 mEq/100 mL in water (0.1 mEq/mL premix), 10 mEq, intravenous, PRN, Tj Amin APRN-SKID WORKER sodium chloride 0.9 % infusion, 10 mL/hr, intravenous, Continuous PRN, Tj Amin, SAND CLEANING MACHINE OPERATOR-SKID WORKER sodium chloride 0.9 % infusion, 10 mL/hr, intravenous, Continuous PRN, Tj Amin, SAND CLEANING MACHINE OPERATOR-SKID WORKER sodium chloride 0.9 % infusion, 10 mL/hr, intravenous, Continuous PRN, Tj Amin, SAND CLEANING MACHINE OPERATOR-SKID WORKER sodium chloride 0.9 % infusion, 75 mL/hr, intravenous, Continuous, Tj Amin SAND CLEANING MACHINE OPERATOR-SKID WORKER, Last Rate: 75 mL/hr at 09/30/24 0559, 75 mL/hr at 09/30/24 0559 Social History Socioeconomic History Marital status: Single Spouse name: Not on file Number of children: Not on file Years of education: Not on file Highest education level: Not on file Occupational History Not on file Tobacco Use Smoking status: Not on file Smokeless tobacco: Not on file Substance and Sexual Activity Alcohol use: Not on file Drug use: Not on file Sexual activity: Not on file Other Topics Concern Not on file Social History Narrative Not on file Social Drivers of Health Financial Resource Strain: Medium Risk (04/10/2024) Received from [employer] Overall Financial Resource Strain (CARDIA) Difficulty of Paying Living Expenses: Somewhat hard Food Insecurity: No Food Insecurity (09/28/2024) Received from [facility] Hunger Vital Sign Worried About Running Out of Food in the Last Year: Never true Ran Out of Food in the Last Year: Never true Transportation Needs: No Transportation Needs (09/28/2024) Received from [facility] PRAPARE - Transportation Lack of Transportation (Medical): No Lack of Transportation (Non-Medical): No Physical Activity: Insufficiently Active (04/10/2024) Received from [employer] Exercise Vital Sign Days of Exercise per Week: 3 days Minutes of Exercise per Session: 10 min Stress: Stress Concern Present (04/10/2024) Received from [employer] [place] [facility] - Occupational Stress Questionnaire Feeling of Stress : To some extent Social Connections: Moderately Integrated (04/10/2024) Received from [employer] Social Connection and Isolation Panel [NHANES] Frequency of Communication with Friends and Family: More than three times a week Frequency of Social Gatherings with Friends and Family: Twice a week Attends Sabianist Services: 1 to 4 times per year Active Member of Clubs or Organizations: Yes Attends Club or Organization Meetings: More than 4 times per year Marital Status: Never Interpersonal Safety: Patient Declined (04/10/2024) Received from [employer] Humiliation, Afraid, Rape, and Kick questionnaire Fear of Current or Ex-Partner: Patient declined Emotionally Abused: Patient declined Physically Abused: Patient declined Sexually Abused: Patient declined Housing Instability: Low Risk (09/28/2024) Received from [facility] Housing Stability Vital Sign Unable to Pay for Housing in the Last Year: No Number of Times Moved in the Last Year: 0 Homeless in the Last Year: No No family history on file. Physical Exam Constitutional: General: She is not in acute distress. Appearance: Normal appearance. HENT: Head: Normocephalic and atraumatic. Cardiovascular: Rate and Rhythm: Normal rate and regular rhythm. Pulmonary: Effort: Pulmonary effort is normal. No respiratory distress. Abdominal: General: Abdomen is flat. There is no distension. Palpations: Abdomen is soft. Tenderness: There is abdominal tenderness in the right upper quadrant. There is no guarding or rebound. Positive signs include Salomon's sign. Musculoskeletal: General: Normal range of motion. Skin: General: Skin is warm and dry. Coloration: Skin is not jaundiced. Neurological: General: No focal deficit present. Mental Status: She is alert and oriented to person, place, and time. Vital Signs: Blood pressure 113/44, pulse 72, temperature 36.7 C (98.1 F), temperature source Oral, resp. rate 18, height 154.9 cm (5' 1 ), weight 72.8 kg (160 lb 6.4 oz), SpO2 93%. Respiratory Source: O2 Device: None (Room air) Admission Weight: Weight: 72.8 kg (160 lb 6.4 oz) Labs: Lab Results Component Value Date WBC 4.0 09/29/2024 HGB 8.3 (L) 09/30/2024 HCT 24.4 (L) 09/30/2024 MCV 87 09/29/2024 PLT 61 (L) 09/29/2024 Lab Results Component Value Date GLU 119 (H) 09/29/2024 CALCIUM 7.2 (L) 09/29/2024 K 4.0 09/29/2024 CO2 16 (L) 09/29/2024 CL 120 (H) 09/29/2024 BUN 48 (H) 09/29/2024 CREATININE 1.54 (H) 09/29/2024 No results found for: AMYLASE No results found for: LIPASE Lab Results Component Value Date ALT 39 (H) 09/29/2024 AST 40 09/29/2024 ALKPHOS 121 09/29/2024 Lab Results Component Value Date INR 1.4 (H) 09/29/2024 PROTIME 15.9 (H) 09/29/2024 Imaging: CT CTA TAVR Result Date: 09/28/2024 Narrative: EXAMINATION: CTA OF THE CHEST, ABDOMEN AND [...] fracture or suspicious bone lesion is identified. Impression: 1. No aortic aneurysm or dissection. There [...] or reactive airways disease. 5. Colonic diverticulosis. TRANSCATHETER BIOPSY Result Date: 09/21/2024 Narrative: EXAM: IR HEPATIC WEDGE PRESSURE/VENO, IR TRANSCATHETER [...] 1 mg Given Rate: 0 Route: Intravenous; 11: AM 09/20/24 fentaNYL (SUBLIMAZE) injection 0-300 mcg Given 50 mcg Given Rate: 0 Route: Intravenous; 11: AM 09/20/24 midazolam (VERSED) injection 0-10 mg [...] Intravenous; TOTAL FLUORO TIME: 4.3 minutes OPERATORS: Rylie Whipple II, MD (attending), Jorge Serrano MD (resident) CONSENT: Following discussion of the risks, benefits and alternatives of the procedure, written informed consent was obtained. SEDATION: I performed Moderate Sedation which included the presence of a nurse that assisted in monitoring the patient's level of consciousness and physiologic status. After administration of sedative medication(s), I spent 33 minutes of continuous [id number] time with the patient. COMPARISON: No prior [...] wire was advanced into the IVC. A 10-Montserratian by 40 cm hemostatic sheath was placed. [...] Wedge Pressure: 13 Free Hepatic Pressure: 8 Impression: IMPRESSION: Transjugular liver biopsy performed with samples sent to pathology. Pressure measurements as above. Rylie Whipple II, MD was in the room and participated during all morales portions of this procedure. I personally viewed and interpreted these images and I have reviewed and approved this report. TIC WEDGE PRESSURE/VENO Result Date: 09/21/2024 Narrative: EXAM: IR HEPATIC WEDGE PRESSURE/VENO, IR TRANSCATHETER [...] 1 mg Given Rate: 0 Route: Intravenous; 11: AM 09/20/24 fentaNYL (SUBLIMAZE) injection 0-300 mcg Given 50 mcg Given Rate: 0 Route: Intravenous; 11: AM 09/20/24 midazolam (VERSED) injection 0-10 mg Given 1 mg Given Rate: 0 Route: Intravenous; 11:50 AM 09/20/24 Lidocaine 2 % injection Ordered and Given 2 mL Given Rate: 0 Route: Other; 11:51 AM 09/20/24 fentaNYL (SUBLIMAZE) injection 0-300 mcg Given 25 mcg Given Rate: 0 Route: Intravenous; 11: AM 09/20/24 midazolam (VERSED) injection 0-10 mg [...] Intravenous; TOTAL FLUORO TIME: 4.3 minutes OPERATORS: Rylie Whipple II, MD (attending), Jorge Serrano MD (resident) CONSENT: Following discussion of the risks, benefits and alternatives of the procedure, written informed consent was obtained. SEDATION: I performed Moderate Sedation which included the presence of a nurse that assisted in monitoring the patient's level of consciousness and physiologic status. After administration of sedative medication(s), I spent 33 minutes of continuous [id number] time with the patient. COMPARISON: No prior [...] wire was advanced into the IVC. A 10-Montserratian by 40 cm hemostatic sheath was placed. [...] Wedge Pressure: 13 Free Hepatic Pressure: 8 Impression: IMPRESSION: Transjugular liver biopsy performed with samples sent to pathology. Pressure measurements as above. Rylie Whipple II, MD was in the room and participated during all morales portions of this procedure. I personally viewed and interpreted these images and I have reviewed and approved this report. Assessment: Ashlee Banerjee is a 73 y.o.female with past medical history of primary biliary cirrhosis s/p recent transjugular liver biopsy who was admitted on 09/29/2024 for concern for upper GI bleed. Imaging reports reviewed, however images from OSH are currently not in our system. 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 Plan: Patient would likely benefit from cholecystectomy during this admission, however will defer until after patient is clinically stable GI team consulted, appreciate recommendations regarding possible EGD and/or EUS to evaluate biliary track Recommend trying to get images from outside hospital if possible Pain & nausea control as needed Monitor & replace electrolytes as needed All other care and workup per primary and other consulting teams Ramon Decker MD General Surgery, PGY-1 Hepatobiliary, Pancreas, and Endocrine Surgery 09/30/24 Cosigned by Pily Zaman MD at 09/30/2024 5:39 PM EDT Associated attestation - Pily Zaman MD - 09/30/2024 5:39 PM EDT Attending Attestation: I saw the patient. I performed the critical/morales portions of the service. I was directly involved in the management and treatment plan of the patient. I reviewed the resident's note. Additional Notes/Findings: Abdomen is soft and mildly tender. Hgb stable. CT images reviewed, no active extravasation. Will plan to follow. [employer] Phone: 09-30-2024 Plan of care note Problem: Pain Goal: Patient goal is pain score less than 4, able to rest, and participant in treatment plan as appropriate Description: INTERVENTIONS: 1. Encourage patient or legal access services representative to report early pain and ask for pain medicine when needed 2. Assess pain using appropriate pain scale and include the scale used when documenting 3. Administer analgesics based on type and severity of pain and evaluate response within appropriate time frame 4. Implement non-pharmacological measures as appropriate and evaluate response 5. Consider cultural and social influences on pain and pain management 6. Notify LIP if interventions ineffective or patient reports new pain 7. Monitor vital signs including pulse ox, end-tidal CO2 based on pain intervention 8. Reassess pain per policy 9. Teach patient or legal access services representative interventions for comforting 09/30/[id number] by AURORA Britton Outcome: Progressing Note: Evaluation of progress towards goal: Patient denies pain at this time; comfort measures applied; PRN pain medications available if needed. Plan of care continues that patient pain is being managed appropriately. 09/30/2024505 by AURORA Britton Outcome: Progressing Note: Evaluation of progress towards goal: Patient denies pain at this time; comfort measures applied; PRN pain medications available if needed. Plan of care continues that patient pain is being managed appropriately. Problem: Safety Goal: Patient will be injury free during hospitalization Description: INTERVENTIONS: 1. Assess patient's risk for falls and implement fall prevention plan of care per policy 2. Provide and maintain a safe environment 3. Proper use of double Identifiers 4. Medication administration using the 5 rights 5. Hand hygiene 6. Specimens are labeled at the bedside 7. Instruct patient/ patient access services representative about use of safety devices 8. Include patient/ patient access services representative in decisions related to safety 09/30/[id number] by AURORA Britton Outcome: Progressing Note: Evaluation of progress towards goal: Patient safety maintained; remains free from falls/injuries 09/30/2024505 by AURORA Britton Outcome: Progressing Note: Evaluation of progress towards goal: bed in lowest position with wheels locked, items and call light within reach. Care ongoing to meet patient safety goals. Problem: Infection Goal: Absence of infection during hospitalization Description: INTERVENTIONS 1. Assess and monitor for signs and symptoms of infection. 2. Monitor lab/diagnostic results. 3. Monitor all insertion sites i.e., indwelling lines, tubes and drains. 4. Monitor endotracheal (as able) and nasal secretions for changes in amount and color. 5. Administer medications as ordered. 6. Instruct and encourage patient and family to use good hand hygiene technique. 7. Identify and instruct patient/patient access services representative in use of appropriate isolation precautions for identified infection/symptoms. 8. Provide and discuss with patient/patient access services representative on educational MDRO sheet. 9. Encourage and monitor nutritional status daily and consult traffic technician if indicated. 10. Implement neutropenic guidelines as needed. 09/30/2024 0545 by AURORA Britton Outcome: Progressing Note: Evaluation of progress towards goal: Infection safety policies applied to patient's care while monitoring s/s, labs, and vitals for any indications of infection. 09/30/2024 0506 by AURORA Britton Outcome: Progressing Note: Evaluation of progress towards goal: Problem: Knowledge Deficit Goal: Patient/patient access services representative demonstrates understanding of disease process, treatment plan, medications, and discharge instructions Description: INTERVENTIONS 1. Complete learning assessment and assess knowledge base 2. Provide teaching at level of understanding 3. Provide teaching via preferred learning method(s) Outcome: Progressing Note: Evaluation of progress towards goal: continue to provide education to patient and family when available Problem: Discharge Planning Goal: Discharge to post-acute care, other facility, or home with appropriate resources Description: Patient's goal is: INTERVENTIONS 1. Conduct assessment to determine patient/family and health care team treatment goals, and need for post-acute services based on payer coverage, community resources, and patient preferences, and barriers to discharge 2. Coordinate with Social work, Care Navigation, and Utilization Review to arrange appropriate level of services according to patient's needs based on patient preference and payer coverage in collaboration with the physician and health care team 3. Address psychosocial, clinical, and financial barriers to discharge as identified in assessment in conjunction with the patient/family and health care team 4. Consult appropriate ancillary services (i.e.. PT/OT/ST, etc) as needed 5. Communicate with and update the patient/family, physician, and health care team regarding progress on the discharge plan 6. Identify discharge learning needs (meds, wound care, etc). 7. Arrange for needed discharge transportation as appropriate Outcome: Progressing Note: Evaluation of progress towards goal: Discharge planning initiated upon admission and updated as appropriate throughout stay. Problem: Potential for Compromised Skin Integrity Goal: Skin integrity is maintained or improved Description: Patient's goal is: INTERVENTIONS 1. Perform initial skin assessment on admission and as needed 2. Turn patient every 2 hours and PRN 3. Relieve pressure to bony prominences 4. Avoid shearing 5. Keep skin clean and dry 6. Alternate a full bath with partial baths for elderly 7. Apply lotion/moisturizer on skin 8. Monitor patient's hygiene practices 9. Float heels 10. Collaborate with interdisciplinary team and initiate plans and interventions as needed Outcome: Progressing Note: Evaluation of progress towards goal: skin remains intact and without issues at this time [facility] 09-29-2024 History and physical note Images from the original note were not included. CRITICAL CARE HISTORY & PHYSICAL Name: Ashlee Banerjee Date: 09/29/2024 Length of Stay: 0 day(s) Chief Complaint: Upper GIB History of Present Illness: Ashlee Banerjee is a 73 y.o. year-old female who is transferred to us from [facility] for acute upper GIB and need for GI services. Patient has past medical history as listed below, which is significant for primary biliary cirrhosis s/p liver biopsy 09/20/24 and 'watermelon stomach'. Patient was a direct admit at [place] from her doctor's office due to abdominal pain. She states that she has been having intermittent RUQ pain every 2 days or so ever since she had her liver biopsy at [facility]. She also reports that she has noticed dark-colored stools recently. Patient has known history of primary biliary cirrhosis as stated above. She follows with Dr. Patino in [place] as well as with doctors at [facility]. She has had previous EGD in August the patient states did not show varices. While at [place], patient was admitted to the ICU due to hypotension and anemia. She was given 2 units of packed red blood cells and started on norepinephrine. CTA did not show active bleeding, however, did note cholelithiasis and sludge. She was transferred to [facility] for GI services. Currently, vital signs are stable. She is no longer requiring vasopressors. She is tolerating room air. She denies any nausea or vomiting but does report mild right upper quadrant pain when palpated. Patient states that she used to take baby aspirin but has stopped that. She denies any NSAID use or current tobacco use. Past Medical History: Primary biliary cirrhosis DM 2 Essential Hypertension Hyperlipidemia Bladder stimulator Past Surgical History: Liver biopsy 09/20/2024 at [facility] Allergies: Morphine Nickel Sulfites Leucine Cyclobenzaprine Penicillins Review of Systems Positive for mild RUQ pain to palpation PHYSICAL EXAM: General: In bed. Well-developed, well-nourished, no apparent distress. Head: Normocephalic, atraumatic. Eyes: Wearing glasses Neck: No tracheal deviation, neck supple. Cardiovascular: Regular rate and rhythm Pulmonary: Good air entry bilaterally. On room air. Abdomen: Soft. Mildly tender to palpation RUQ Neurological: No gross deficits. Moving all extremities. Skin: Warm, no rashes or erythema. Extremities: No cyanosis or clubbing. Pulses: 2+ peripheral pulses bilaterally in upper and lower extremities. Patient Active Problem List Diagnosis GI bleed Ashlee Banerjee is a 73 y.o. year-old female with acute GIB. ASSESSMENT Acute upper GIB Patient reports dark stools Acute blood loss anemia Primary biliary cirrhosis. Recent liver biopsy September 20, 2024 at [facility] Hypovolemic Shock, resolved. Off pressors. DM type 2, not currently on medications Essential Hypertension Right sided abdominal pain Bladder stimulator GERD, on omeprazole PLAN Currently off vasopressors. Levophed ordered if needed Type and screen Trend H/H and transfuse as needed Check full set of labs now Protonix BID for upper GIB Consult Dr. Holland for evaluation. She was made aware of the patient at outside facility. PRN pain control Hold home antihypertensives for now Nutrition: NPO for now Activity: bedrest tonight. Ok to get up to commode with assist DVT prophylaxis: EPC cuffs GI prophylaxis: Protonix BID Glycemic control: as needed Replace electrolytes per protocol LINES/DRAINS/AIRWAYS: Left arm PICC CODE STATUS: Full Code DISPOSITION: ICU Most recent imaging / lab studies independently reviewed. *Please also note additional orders Tj Amin APRN, CNP Acute Care Nurse Practitioner [facility] Critical Care Please feel free to contact me via Patient Touch. CRITICAL CARE TIME: 40 minutes. Non-contiguous time with attending MD, excluding procedures. This patient, with a critical illness, requires constant monitoring and titration of care by a Critical Care Production Control Planner or GRICELDA. Failure to do so may result in further organ system failure, imminent deterioration, or . ALEXANDER Rubio 09/29/242032 Cosigned by Hal Linder MD at 09/30/2024 5:21 AM EDT [facility]: 09-29-2024 History of Present illness Narrative Report given to transport crew. Called report to Agnieszka at [facility]. [facility] called at this time for update. They stated the ETA is TBD as they are calling around for transport. Let access know that patient was through with testing and procedures and clear for transport. Returned from Nuc Med at this time. Hung new bag of Normal Saline and new Protonix drip while patient was in nuc med testing. Scanner unavailable Accompanied patient to nuc med at this time along with RVAT nurse for PICC placement. Vascular access team to be here in 1.5 hrs. Updated Teresa Updated [facility] access at this time Blood transfusion completed at this time. Recheck HGB in one hour per orders. Dr. Eller and Teresa RACE RELATIONS ADVISER rounding at bedside. Comprehensive Nutrition Assessment Type and Reason for Visit: Initial Nutrition Recommendations/Plan: Recommendation of GI bland diet with presence of abdominal pain and GERD. Meet >75% of estimated needs. Consume >50% of meals after NPO. Malnutrition Assessment: Malnutrition Status: At risk for malnutrition (09/29/24723) Context: Acute Illness Findings of the 6 clinical characteristics of malnutrition: Energy Intake: 75% or less of estimated energy requirements for 7 or more days Weight Loss: No weight loss Body Fat Loss: No body fat loss Muscle Mass Loss: No muscle mass loss Fluid Accumulation: No fluid accumulation Manager Solution Strength: Not Performed Nutrition Assessment: Predicted inadequate energy intake r/t altered GI function aeb variable PO intake prior to admission. Pt reported since her transjugular liver biopsy with hepatic wedge pressures at [facility] her appetite was low due to abdominal pain. She would try to eat three small meals a day having cereal in the morning, a light lunch with chicken and broccoli, with a protein and vegetable for lunch. Pt expresses she monitors her fat intake and does not consume fast food. Labs reviewed with elevated glucose (171), BUN (54), and creatinine (1.8). Recommendation of a GI bland diet due to diagnosis of chronic GERD to ease stomach pain. Nutrition Related Findings: Active b/s and BLE non-pitting trace edema Wound Type: None Current Nutrition Intake & Therapies: Average Meal Intake: NPO Average Supplements Intake: NPO Diet NPO Exceptions are: Sips of Water with Meds Anthropometric Measures: Height: 154.9 cm (5' 0.98 ) [place] Body Weight (IBW): 105 lbs (48 kg) Admission Body Weight: 68.6 kg (151 lb 3.8 oz) Current Body Weight: 70.3 kg (154 lb 15.7 oz), 147.6 % IBW. Weight Source: Bed scale Current BMI (kg/m2): 29.3 Usual Body Weight: 67.6 kg (149 lb) (6 months ago) % Weight Change (Calculated): 4 Weight Adjustment For: No Adjustment BMI Categories: Overweight (BMI 25.0-29.9) Hematology: Recent Labs 09/26/24 1341 09/28/24 14009/29/24 0403 WBC 4.4 5.7 7.3 HGB 9.1* 8.1* 6.8* HCT 28.4* 25.2* 21.7* Chemistry: Recent Labs 09/28/24 1405 09/29/24 0403 NA 138 139 K 5.0 4.8 CL 104 109* CO2 21 17* GLUCOSE 218* 171* BUN 57* 54* CREATININE 1.7* 1.8* CALCIUM 9.0 8.3* Recent Labs 09/26/24 1136 09/26/24 1341 09/28/24 1405 09/29/24 0403 LABA1C 6.4 -- -- -- TSH -- 2.112 -- -- AST -- -- 110* 83* ALT -- -- 86* 71* ALKPHOS -- -- 209* 181* BILITOT -- -- 1.7* 0.9 AMMONIA -- -- -- 23 LIPASE -- -- 42 -- CHOL -- 116 -- -- TRIG -- 103 -- -- HDL -- 51 -- -- Estimated Daily Nutrient Needs: Energy Requirements Based On: Kcal/kg Weight Used for Energy Requirements: Current Energy (kcal/day): 4150-4078 (20-23kcal/kg) Weight Used for Protein Requirements: [place] Protein (g/day): 58-67 (1.2-1.4g/kg) Method Used for Fluid Requirements: 1 ml/kcal Fluid (ml/day): 3019-6901 Nutrition Diagnosis: Predicted inadequate energy intake related to altered GI function as evidenced by nausea, variable po intake Nutrition Interventions: Food and/or Nutrient Delivery: Continue Current Diet Nutrition Education/Counseling: No recommendation at this time Coordination of Nutrition Care: Continue to monitor while inpatient Plan of Care discussed with: pt Goals: Goals: Meet at least 75% of estimated needs, PO intake 50% or greater Type of Goal: New goal Previous Goal Met: New Goal Nutrition Monitoring and Evaluation: Behavioral-Environmental Outcomes: None Identified Food/Nutrient Intake Outcomes: Food and Nutrient Intake, Diet Advancement/Tolerance Physical Signs/Symptoms Outcomes: Biochemical Data, GI Status, Nausea or Vomiting, Meal Time Behavior, Nutrition Focused Physical Findings, Weight Discharge Planning: Continue current diet Serena Baig Contact: [phone] Cosigned by Ne[address] RD, LD at 09/29/2024 11:52 AM EDT 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 female who is seen for follow up in the ICU. Per nursing report and notes, overnight events include: hypotension, worsening Hgb . She resting in bed no distress. No pain at this time. No reports of rectal bleeding. Discussed transfer at this time ROS: Constitutional: negative for fevers, and negative for chills. Respiratory: negative for shortness of breath, negative for cough, and negative for wheezing Cardiovascular: negative for chest pain, and negative for palpitations Gastrointestinal: negative for abdominal pain, negative for nausea,negative for vomiting, negative for diarrhea, and negative for constipation All other systems were reviewed with the patient and are negative unless otherwise stated in HPI. OBJECTIVE: VITAL SIGNS: Patient Vitals for the past 8 hrs: BP Temp Temp src Pulse Resp SpO2 Weight 09/29/24 0615 (!) 100/38 -- -- 92 19 96 % -- 09/29/24 0600 (!) 100/35 -- -- 68 19 97 % -- 09/29/24 0545 (!) 98/37 -- -- 65 17 95 % -- 09/29/24 0530 (!) 40 98.1 F (36.7 C) Oral 66 20 -- -- 09/29/24 0517 (!) 98.1 F (36.7 C) Oral 67 22 97 % -- 09/29/24 0500 (!) 99.1 F (37.3 C) Oral 62 22 94 % -- 09/29/24 0445 (!) -- -- 60 20 96 % -- 09/29/24 0442 (!) -- -- 57 22 96 % -- 09/29/24 0422 (!) 98.9 F (37.2 C) Temporal 52 16 96 % -- 09/29/24 0405 (!) 83/46 -- -- (!) 48 -- -- -- 09/29/24 0350 (!) 83/ -- -- 50 -- -- -- 09/29/24 0345 (!) 84/ -- -- 50 -- -- -- 09/29/24 0344 (!) 72/50 -- -- -- -- -- -- 09/29/24 0340 (!) 68/43 -- -- (!) 44 -- -- -- 09/29/24 0338 (!) 84/37 -- -- (!) 48 -- -- -- 09/29/24 0331 -- -- -- -- -- -- 70.3 kg (154 lb 15.7 oz) Temp: 98.1 F (36.7 C) Temp range: Temp Av.4 F (36.9 C) Min: 97.3 F (36.3 C) Max: 99.1 F (37.3 C) BP: (!) 100/38 BP Range: Systolic (24hrs), Av , Min:68 , Max:121 Diastolic (24hrs), Av, Min:30, Max:88 Pulse: 92 Pulse Range: Pulse Av.3 Min: 44 Max: 94 Respirations: 19 Resp Range: Resp Av.5 Min: 16 Max: 22 SpO2: 96 % on room air SpO2 range: SpO2 Av.4 % Min: 94 % Max: 100 % Weight Wt Readings from Last 3 Encounters: 09/29/24 70.3 kg (154 lb 15.7 oz) 09/25/24 69.4 kg (153 lb) 08/03/24 69.4 kg (153 lb) Body mass index is 29.28 kg/m . 24HR INTAKE/OUTPUT: Intake/Output Summary (Last 24 hours) at 09/29/2024 0638 Last data filed at 09/29/20241 Gross per 24 hour Intake 2529.67 ml Output 300 ml Net 2229.67 ml Date 09/29/24 0000 - 09/29/24 2359 Shift 5088-5458 1116-5651 5794-7741 24 Hour Total INTAKE I.V.(mL/kg/hr) 2529.7 2529.7 Shift Total(mL/kg) 2529.7(36) 2529.7(36) OUTPUT Shift Total(mL/kg) Weight (kg) 70.3 70.3 70.3 70.3 PHYSICAL EXAM: GEN: Awake and following commands: [] No [x] Yes MENTAL STATUS: alert and oriented x3. DISTRESS: Acute respiratory distress: [x] No [] Yes EYES: EOMI, pupils equal NECK: Supple. No lymphadenopathy. No carotid bruit CVS: regular but tachycardic, systolic murmur PULM: CTA, no wheezes, rales or rhonchi, no acute respiratory distress ABD: Bowels sounds normal. Abdomen is soft. No distention. no tenderness to palpation. EXT: no edema bilaterally . No calf tenderness. NEURO: Moves all extremities. Motor and sensory are grossly intact SKIN: No rashes. No skin lesions. MEDICATIONS: Scheduled Meds: sodium chloride flush 5-40 mL IntraVENous 2 times per day ursodiol 500 mg Oral BID carvedilol 25 mg Oral BID levothyroxine 100 mcg Oral Daily cycloSPORINE 1 drop Ophthalmic BID RT Continuous Infusions: sodium chloride sodium chloride sodium chloride pantoprazole (PROTONIX) 80 mg in sodium chloride 0.9 % 100 mL infusion 8 mg/hr (09/29/24 0328) sodium chloride PRN Meds: sodium chloride, , PRN sodium chloride flush, 5-40 mL, PRN sodium chloride, , PRN ondansetron, 4 mg, Q6H PRN sodium chloride, , PRN HYDROmorphone, 0.25 mg, Q3H PRN Or HYDROmorphone, 0.5 mg, Q3H PRN VASOPRESSORS: [x] No [] Yes [] Levophed [] Dopamine [] Vasopressin [] Dobutamine [] Phenylephrine [] Epinephrine DATA: Complete Blood Count: Recent Labs 09/26/24 1341 09/28/24 1405 09/29/24 0403 WBC 4.4 5.7 7.3 RBC 3.06 2.72* 2.28* HGB 9.1* 8.1* 6.8* HCT 28.4* 25.2* 21.7* MCV 92.8 92.6 95.2 RDW -- 14.0 14.3 PLT 91 See Reflexed IPF Result See Reflexed IPF Result NEUTROABS 2.90 4.78 5.47 LYMPHOPCT 26.0 11* 13* LYMPHSABS 1.14 0.63* 0.95* MONOPCT 4.0 4 12 BASOPCT 0.0 0 0 IMMGRAN -- 0 0 Recent Blood Glucose: Recent Labs 09/28/24 1405 09/29/24 0403 GLUCOSE 218* 171* Comprehensive Metabolic Profile: Recent Labs 09/28/24 1405 09/29/24 0403 BUN 57* 54* CREATININE 1.7* 1.8* NA 138 139 K 5.0 4.8 CL 104 109* CALCIUM 9.0 8.3* ANIONGAP 13 13 CO2 21 17* BILITOT 1.7* 0.9 ALKPHOS 209* 181* AST 110* 83* ALT 86* 71* Urinalysis: Lab Results Component Value Date/Time NITRU NEGATIVE 09/28/2024 05:22 PM COLORU Yellow 09/28/2024 05:22 PM PHUR 6.0 09/28/2024 05:22 PM PHUR 6.0 01/20/2022 04:27 PM WBCUA 0 TO 2 09/28/2024 05:22 PM RBCUA None 09/28/2024 05:22 PM MUCUS TRACE 09/28/2024 05:22 PM TRICHOMONAS NOT REPORTED 04/07/2021 03:00 PM YEAST NOT REPORTED 04/07/2021 03:00 PM BACTERIA 2+ 03/28/2024 04:54 PM LEUKOCYTESUR NEGATIVE 09/28/2024 05:22 PM UROBILINOGEN Normal 09/28/2024 05:22 PM BILIRUBINUR SMALL 09/28/2024 05:22 PM GLUCOSEU NEGATIVE 09/28/2024 05:22 PM KETUA NEGATIVE 09/28/2024 05:22 PM AMORPHOUS NOT REPORTED 04/07/2021 03:00 PM HgBA1c: Lab Results Component Value Date/Time LABA1C 6.4 09/26/2024 11:36 AM TSH: Lab Results Component Value Date/Time TSH 2.112 09/26/2024 01:41 PM Lactic Acid: Lab Results Component Value Date/Time LACTA 2.4 09/29/2024 04:03 AM High Sensitivity Troponin: No results for input(s): TROPHS in the last 72 hours. Pro-BNP:No results found for: PROBNP D-Dimer:No results found for: DDIMER PT/INR: Lab Results Component Value Date/Time PROTIME 17.0 09/29/2024 04:35 AM INR 1.4 09/29/2024 04:35 AM PTT: Lab Results Component Value Date/Time APTT 33.6 09/29/2024 04:35 AM CRP: No results for input(s): CRP in the last 72 hours. ABGs: No results found for: PHART , PH , OEG3SZE , PCO2 , PO2ART , PO2 , GVM1EXU , HCO3 , BEART , BE , THGBART , THB , UVT1SNB , C6OOUVOG , O2SAT , FIO2 Radiology/Imaging: CTA CHEST ABDOMEN PELVIS W CONTRAST Final Result 1. No aortic aneurysm or dissection. There [...] or reactive airways disease. 5. Colonic diverticulosis. NM HEPATOBILIARY SCAN W EJECTION FRACTION (Results Pending) ASSESSMENT / PLAN: Primary Problem(s): Acute abdominal pain Differential diagnoses: Cholelithiasis versus cholecystitis, GI bleed, pancreatitis, biopsy site liver bleed Condition is an undiagnosed new problem with uncertain prognosis Condition is stable Treatment plan: Appreciate Dr. Trivedi-discussed N.p.o. Monitor labs replace electrolytes Lipase - Normal Ammonia - Normal Urinalysis with reflex BC x 2 Type and Screen - Keep 2u of PRBCs on hold Transfusing 1 unit at this time Stool for all occult blood-Positive Imaging: CTA chest abdomen and pelvis - No active bleed. Distension of GB with cholelithiasis and tumefactive sludge in the gallbladder. CBD is dilated measuring up to 1.3 cm and thee is dependent soft tissue attentuation in the CBD thought to be sludge. Hepatic cirrhosis with portal HTN and splenomegaly and small amount of ascites in the abdomen and pelvis Consider HIDA scan Medications: IV fluids IV Protonix IV fentanyl IV Zofran Medication Monitoring / High Risk Medications: none HTN Condition is a chronic stable condition Treatment plan: Continue current treatment Imaging: no further imaging studies ordered today Medications: Hold Coreg, HCTZ, valsartan Nutrition status: at risk for malnutrition I/O Daily Weight Nutritional Supplements as tolerated Acute Care Clinical Nurse Specialist consult initiated MALNUTRITION ASSESSMENT AND PLAN The following was documented by the Dietitian: I agree with the dietitian's malnutrition assessment. Medical Nutrition Therapy: continue current nutrition therapy Hospital Prophylaxis: DVT: none due to bleed Stress Ulcer: PPI Disposition: Shared decision making: All test results, treatment options and disposition options were discussed with the patient today Social determinants of health that may impact management: none Code status: Full Code Disposition: Discharge plan is Transfer to [facility] Critical Care Time: Total critical care time caring for this patient with life threatening, unstable organ failure, including direct patient contact, management of life support systems, review of data including imaging and labs, discussions with other team members and physicians at least 0 minutes so far today, excluding separately billable procedures. [facility] Advanced Care Planning documentation: [x] I have confirmed that the patient's Advance Care Plan is present, Code Status is documented, or surrogate decision maker is listed in the patient's medical record [If yes , STOP HERE] [] The patient's Advance Care Plan is NOT present because: [] I confirmed today that the patient does not wish or was not able to name a surrogate decision maker or provide and advance care plan. [] Hospice care is currently being provided or has been provided within the calendar year. [] I did NOT confirm today the presence of an Advance Care Plan or surrogate decision maker documented within the patient's medical record. [DOES NOT SATISFY [facility] PERFORMANCE] WM Hopper CNP , WM-RACE RELATIONS ADVISER-C 09/29/2024 6:38 AM Cosigned by Cooper Eller MD at 09/29/2024 9:51 AM EDT Associated attestation - Cooper Eller MD - 09/29/2024 9:51 AM EDT Attending Supervising Physician s Attestation Statement I have personally evaluated and examined the patient [id number] in conjunction with the nurse practitioner. I agree with management and disposition of the patient. Examined and Reviewed plan of care with RACE RELATIONS ADVISER. Directions and discussion about care and plans. Disposition including length of stay was reviewed. Nutritional status, advanced directive and old records reviewed. In addition, Consultations and pharmacy management including drug therapy was reviewed. Therapy goals along with occupational therapy was reviewed & integrated into management including disposition. The patient was seen examined with the nurse practitioner & all direct care was reviewed with the nurse practitioner at the bedside with the patient. Electronically signed by Cooper Eller MD [employer] Icer [employer] Packer called patient's emergency contact, Arun Valnetine (sister) to make aware of transfer to ICU. Was sent to [employer], message left on voicemail to give call back regarding update on patient's status. Report given to Eloisa SIMON on patient. Blood administration hand off given to Eloisa SIMON who will remain at bedside for first 15 minutes of blood administration. Patient transferred back to ICU, room I305, at this time. Blood was obtained by writer and Shelby SIMON. Unit of blood started by writer and Shelby SIMON once patient back in ICU. Eloisa SIMON who will be taking over patient care is currently at bedside. RN wood mill supervisor and Smita SOSA at bedside as well. Patient continues to be hypotensive but patient remains alert and orientated at this time. Writer and Shelby SIMON were at bedside with patient assisting to ambulate to the bathroom. Patient urinated and was assisted back into bed. Writer and Shelby SIMON were talking to patient, when patient suddenly became silent and starred off. Writer and Shelby SIMON called out patient's name multiple times but patient just continued to stare off. Patient only following commands for short few seconds or would not follow commands at all. Patient not verbally responding when name called but would look at you. Neuros at first were difficult to obtain d/t not following commands but after a few minutes patient started to become orientated again and started to follow commands again. Neuros overall negative. Vital signs were obtained at the start of this issues. Patient hypotensive and bradycardic. [employer] I[employer] Packer called Smita SOSA and requested to come to bedside. EKG, Fingerstick and blood work obtained. Bolus was initiated. Patient placed in trendelenburg. Hemoglobin came back as 6.8. Unit of blood needed. Smita SOSA to transfer patient back to ICU. Called to the bedside by nursing staff for change in patient condition. Dana SIMON states that the patient had gotten up to the restroom and when she got back to bed, she stared off into space and did not know where she was. This lasted for a few minutes. Patient was hypotensive with blood pressures as low as 68/43 and bradycardic with a heart rate in the 40s. Normal saline bolus was initiated, EKG and labs ordered. Patient alert and oriented presently. She denies any dizziness, chest pain, shortness of breath, abdominal pain, nausea or bowel movement while she was in the restroom. Patient to be transferred back to ICU for closer monitoring. Cosigned by Cooper Eller MD at 09/29/2024 9:51 AM EDT Patient assessment and vitals completed as charted. Patient A&OX4 and cooperative with assessment. Patient resting comfortably at this time, denies complains of a little bit of pain and requested pain medications. Denies any needs. Call light within patients reach and bed alarm on. Plan of care ongoing. [facility]. Vitals and assessment complete. See flowsheets for details. Breathing is regular and unlabored. Lung sounds are clear. Patient reports upper mid abdominal pain. Abdomen is soft and tender. Bowel sounds are active x4. Patient reports passing bloody loose stools. Patient denies further needs at this time. Call light is within reach. Care ongoing. documented in this encounter [facility] 09-20-2024 Nurse Note Abdominal pain and nausea improved. Patient has met outpatient Interventional Radiology post procedure and post sedation discharge criteria. RN discussed After Visit Summary with patient and visitor. Answered all pt questions. Phone numbers given, voices understanding of materials. Right neck dressing clean, dry, and intact, no swelling or shadowing noted. Returned to baseline ambulatory state. All patient belongings gathered prior to discharge home. Pt taken by wheelchair to waiting car for discharge home per MD order. [facility] 09-20-2024 Miscellaneous Notes Abdominal pain and nausea improved. Patient has met outpatient Interventional Radiology post procedure and post sedation discharge criteria. RN discussed After Visit Summary with patient and visitor. Answered all pt questions. Phone numbers given, voices understanding of materials. Right neck dressing clean, dry, and intact, no swelling or shadowing noted. Returned to baseline ambulatory state. All patient belongings gathered prior to discharge home. Pt taken by wheelchair to waiting car for discharge home per MD order. 1330: C/o Continuing to have nausea 1 hour post zofran administration. 5mg IV compazine ordered. 1345: C/o 10/10 abdominal pain, Dr. Whipple notified and assessed patient. 2.5mg oxycodone ordered. Interventional Radiology procedure completed with IR Attending MD Whipple/ of transjugular liver biopsy. Pt tolerated procedure with IV sedation and local numbing agent. Surgical path sample time-out done per myself and Teresa Henry RN. Pt to travel to [facility] for post procedure recovery. Post procedure orders for nursing to acknowledge including strict bedrest for 2 hours post biopsy. Needle out - 1207 Intra-procedure pressures obtained by as the followinst pressures Right Atrium Pressure: 6 Wedge Pressure: 16 Free Hepatic Pressure: 10 2nd pressures Right Atrium Pressure: 5 Wedge Pressure: 13 Free Hepatic Pressure: 8 documented in this encounter [facility] 09-20-2024 Nurse Note 1330: C/o Continuing to have nausea 1 hour post zofran administration. 5mg IV compazine ordered. 1345: C/o 10/10 abdominal pain, Dr. Whipple notified and assessed patient. 2.5mg oxycodone ordered. [facility] 09-20-2024 Nurse Note Interventional Radiology procedure completed with IR Attending MD Whipple/ of transjugular liver biopsy. Pt tolerated procedure with IV sedation and local numbing agent. Surgical path sample time-out done per myself and Teresa Henry RN. Pt to travel to [facility] for post procedure recovery. Post procedure orders for nursing to acknowledge including strict bedrest for 2 hours post biopsy. Needle out - 1207 Intra-procedure pressures obtained by as the followinst pressures Right Atrium Pressure: 6 Wedge Pressure: 16 Free Hepatic Pressure: 10 2nd pressures Right Atrium Pressure: 5 Wedge Pressure: 13 Free Hepatic Pressure: 8 [facility] 09-20-2024 Hospital Discharge instructions Christina Skaggs RN - 09/20/2024 11:00 AM EDT Home Care after Sedation You have been given medicines during your procedure that might make you sleepy. To prevent problems: 1. Rest for the remainder of the day. You should have someone drive you home and be available for the next [address] 3. Do not drink alcoholic beverages today. 4. Do not make any important business or legally binding decisions today. 5. Do not work around the stove, machinery or power equipment today. 6. The medicines used for sedation may make you feel nauseated. Start with clear liquids, which is anything that you can see through such as tea, jello, broth and lety krissy. As you feel better you may add soft foods such as pudding and ice cream. When you no longer feel nauseated you may try your normal diet. You should be back to eating your normal meals after 24 hours. Home Care Instructions After Your Transjugular Liver Biopsy 1. Go home without making any stops along the way. Rest in bed or on the couch until the next morning. Keep stair climbing to a minimum. Limit your activity for the next two days, no jogging or contact sports. Do not drive until the day after your biopsy. 2. Drink plenty of fluids. You should drink about twice the amount you usually Drink 3. Do not shower or take a tub bath the day of the biopsy. If you want to clean up, take a sponge bath. 4. Remove catheter site bandage from your neck the morning after your biopsy. As you shower or bathe, wash the site gently and pat it dry. Do not scrub the site. 5. Do not lift heavy objects for 3 - 4 days. If your usual activities involve lifting, ask your doctor what is safe for you. 6. Ask your doctor when you may return to work. Call your doctor right away if you have these problems: Dizziness Change position or stand up slowly. Sometimes it helps to sit on the side of the bed for a few minutes before standing up. Pain After having a liver biopsy patients often have discomfort in their shoulder, arm, and neck. If the pain suddenly becomes more severe or if it does not decrease each day after the biopsy, notify your [facility] physician. Other Instructions Call your doctor's office for a follow-up appointment if you do not already have one scheduled. Interventional Radiology Contact Information If you have questions or concerns, please call Interventional Radiology at After-Hours or on Weekends, please call the [facility] at [phone] and ask them for the Interventional Chain [employer] On-Call documented in this encounter [facility] 08-23-2024 Note Missing Attachment - attachment storage system not supported [id number] Can be viewed in source system Missing Attachment - attachment storage system not supported [id number] Can be viewed in source system Missing Attachment - attachment storage system not supported [id number] Can be viewed in source system Missing Attachment - attachment storage system not supported [id number] Can be viewed in source system Missing Attachment - attachment storage system not supported [id number] Can be viewed in source system Missing Attachment - attachment storage system not supported [id number] Can be viewed in source system Patient: Ashlee Banerjee Age: 73 years Sex: Female : 1950 Associated Diagnoses: None Author: Andrae Patino MD Pre-Procedure Procedure Date: 08/23/2024 . Procedure Type: Esophagogastroduodenoscopy. Procedure provider: Performed by Andrae Patino MD. Current history and physical: Colonoscopy Biopsy on 01/09/2022 at 71 Years. Comments: 01/09/2022 10:32 Lisa Segovia auto-populated from documented surgical case Esophagogastroduodenoscopy Biopsy on 07/01/2021 at 70 Years. Comments: 07/01/2021 13:13 Smita Leyva auto-populated from documented surgical case FUSION OF BIG TOE JOINT ([id number]) on 03/24/2021 at 70 Years. Comments: 06/20/2021 14:27 Smita Leyva Left great toe FUSION OF BIG TOE JOINT ([id number]) on 11/21/2020 at 70 Years. Comments: 06/20/2021 14:27 Smita Leyva Right great toe TOTAL KNEE ARTHROPLASTY ([id number]) on 05/24/2016 at 65 Years. Comments: 06/20/2021 14:26 Smita Leyva Lt knee REPAIR ROTATOR CUFF ACUTE ([id number]) on 05/24/2014 at 63 Years. Comments: 06/20/2021 14:25 Smita Leyva Lt REPAIR ROTATOR CUFF ACUTE ([id number]) on 05/24/2012 at 61 Years. Comments: 06/20/2021 14:25 Smita Leyva Right TOTAL KNEE ARTHROPLASTY ([id number]) on 05/24/2010 at 59 Years. Comments: 06/20/2021 14:24 EST - Smita Marques Right ANESTH REPAIR OF HERNIA ([id number]) on 05/24/1998 at 47 Years. Comments: 06/20/2021 14:23 Smita Leyva 1999 Incisional hernia from hysterectomy REMOVE TONSILS AND ADENOIDS (20772). REMOVE PILONIDAL CYST COMPL (49687). EXPLORATION MAXILLARY SINUS (31136). Comments: 06/20/2021 14:21 Smita Leyva RT ANESTH HYSTERECTOMY ([id number]). Provision of bladder vibration stimulation device ([id number]).. Informed Consent: After discussing the rationale, risks and benefits, and alternatives to this procedure, the patient provided signed consent for the procedure. Indication: Surveillance: Esophageal/ gastric varices. Monitoring: See anesthesia record. Procedure Location: [facility]. See anesthesia record for sedation given during procedure. The patient was positioned starting in the left lateral decubitus position. Endoscope type used was an adult-size, introduced orally, advanced to the 2nd portion of the duodenum. Views were good. Findings Examination of the esophagus revealed no bleeding, no esophagitis, no mass, no polyps, no ulcerations and no varices. The squamocolumnar junction was located 38 cm from incisors. Examination of the stomach revealed no varices. 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 Intervention(s) included argon plasma coagulation. The intervention was successful. Portal hypertensive gastropathy was identified at the fundus. It is described as having a mosaic appearance. Examination of the duodenum revealed a normal duodenum. Images Procedure images: [id number]_0001.jpg EGD_0002.jpg EGD_0003.jpg EGD_0004.jpg EGD_0005.jpg EGD_0006.jpg . Post-Procedure Complications encountered during the procedure were none. Estimated blood loss during the procedure was none. Impression and Plan EGD: Course: Progressing as expected. Education and Follow-up: Counseled: Patient. EGD Esophagus - no evidence of stenosis, varices or mass - GEJ 38 cm Stomach - no HH - no gastric varices - no masses - no obvious ulcers - mild portal HTN gastropathy with focal areas of oozing that was ablated with APC - Gastric antral vascular ectasia (watermelon stomach) focal areas of oozing - ablated with APC Duodenum - normal - no varices Monitor CBC as might require further ablations in the future PPI Avoid NSAID Electronically signed by Andrae Patino MD 08/23/24 10:49 EDT [facility] Comment on above: Order Comment: Yvonne bravo Attachment - attachment storage system not supported [id number] Can be viewed in source system Missing Attachment - attachment storage system not supported [id number] Can be viewed in source system Missing Attachment - attachment storage system not supported [id number] Can be viewed in source system Missing Attachment - attachment storage system not supported [id number] Can be viewed in source system Missing Attachment - attachment storage system not supported [id number] Can be viewed in source system Missing Attachment - attachment storage system not supported [id number] Can be viewed in source system 06-20-2024 History of Present illness Narrative Images from the original note were not included. HISTORY OF PRESENT ILLNESS: EST PT Ashlee Banerjee is an 73 y.o. @ female. EST PT S/P (L) JESUS - NICKEL FREE 12/23/23 (~6MO)- DOING WELL PT STATES SHE WAS ON AN ATB FOR UTI 03/2024; PT DID NOT HAVE SYMPTOMS OF UTI (STATES SHE WAS JUST AT A ROUTINE VISIT WITH UROLOGIST; PT HAS OVER ACTIVE BLADDER) XRAYS 02/02/24 IN [facility] HX PT @ [facility] MINIMAL DISCOMFORT/ACHINESS IN THE AM; SYMPTOMS IMPROVE ONCE UP AND MOVING- PT IS WONDERING IF THE MUSCLE IS HEALED - TYLENOL ES PRN- PT USES CAN OCCASIONALLY WHEN OUTSIDE OF HOME- MINIMAL LIMP- PT WOULD LIKE TO START AN EXERCISE ROUTINE ALLERGIES: Allergies Allergen Reactions Morphine Itching Nickel Other Penicillin G Swelling Sulfites Other Sneezing / Runny Nose HOME MEDICATIONS: Current Outpatient Medications Medication Instructions Acetaminophen 500 MG capsule aspirin 81 mg, Oral, Daily RT atorvastatin (LIPITOR) 20 mg, Oral, Daily RT CALCIUM CITRATE PO 600 mg, Oral, 3 times daily Carboxymethylcellulose Sodium (EQ RESTORE PLUS LUBRICANT EYE OP) Restore-X carvedilol (COREG) 25 mg, Oral, 2 times daily cetirizine (ZYRTEC) 10 mg, Oral cholecalciferol (Vitamin D-3) 50 MCG (1999 UT) tablet 1 tablet, Oral, Daily RT coenzyme Q-10 (Q-SORB) 100 MG capsule Daily, Refills(s) 0 cycloSPORINE (Restasis) 0.05 % ophthalmic emulsion 1 drop hydroCHLOROthiazide (HYDRODIURIL) 12.5 mg, Oral, Daily levothyroxine (SYNTHROID, LEVOXYL) 100 mcg, Oral, Daily RT meloxicam (MOBIC) 15 mg, Oral, Daily metFORMIN (GLUCOPHAGE) 500 mg, Oral, 2 times daily with meals [place] 3-6-9 Fatty Acids (TRIPLE OMEGA COMPLEX PO) Oral 28-0.8 MG tablet Every 24 hours Probiotic Product (PROBIOTIC BLEND PO) as directed Orally triamcinolone (Nasacort Allergy 24HR) 55 MCG/ACT nasal inhaler Every 24 hours ursodiol (ACTIGALL) 500 mg, Oral, 2 times daily valsartan (DIOVAN) 320 mg, Oral, Daily RT PHYSICAL EXAM: Hip Musculoskeletal Exam Gait Gait is normal. Inspection Leg length disparity: no discrepancy Left Erythema: none Ecchymosis: none Edema: none Deformity: none Previous incision: anterolateral Incision: well-healed Palpation Left Left hip palpation is normal. Increased warmth: none Tenderness: none Range of Motion Left Left hip range of motion is within functional limits. Active ROM: normal. Passive ROM: normal. Active extension: 30. Passive extension: 30. Active flexion: 110. Passive flexion: 110. Active internal rotation: 35. Passive internal rotation: 35. Active external rotation: 40. Passive external rotation: 40. Active adduction: 40. Passive adduction: 40. Active abduction: 40. Passive abduction: 40. Strength Left Left hip strength is normal. Extension: 5/5. Flexion: 5/5. Internal rotation: 5/5. External rotation: 5/5. Adduction: 5/5. Abduction: 5/5. Neurovascular Left Left hip neurovascular exam is normal. Pulses - PT: normal Posterior tibial: 2+ General Constitutional: appears stated age Labored breathing: no Psychiatric: normal mood and affect Neurological: alert and oriented x3 Skin: intact Lymphadenopathy: none Vitals: There is no height or weight on file to calculate BMI. Tobacco Use: Medium Risk (06/20/2024) Patient History Smoking Tobacco Use: Former Smokeless Tobacco Use: Never Passive Exposure: Not on file Alcohol Use: Not At Risk (03/27/2024) Received from [facility] Frequency of Alcohol Consumption: Never Average Number of Drinks: Patient does not drink Frequency of Binge Drinking: Never IMAGING: Procedures No orders of the defined types were placed in this encounter. ASSESSMENT: No diagnosis found. PLAN: Patient very pleased with her progress and glad that she had her hip replaced. She states that she has no complaints whatsoever about her hip. She states that her hip is significantly better than it was before surgery. The operative lower extremity was neurovascularly intact without any sensorimotor deficits noted distal to the operative hip. Patient was able to motor feet toes ankle and knee and all anatomic planes with 5 out of 5 strength to the operative lower extremity. Dorsalis pedis and posterior tibial pulses were present and equal bilaterally. Sensation to light touch was intact all dermatomes to lower extremities bilaterally. Negative Homans and negative Tushar were noted bilaterally to lower extremities. There was no evidence of infection the lower extremities bilaterally. Compartments were soft to lower extremities bilaterally. Questions answered in laymen terms at the bedside. The diagnosis, home exercise plan and any ongoing restrictions/ recommendations reviewed. If unable to be reached in office, I recommend evaluation at nearest Emergency Room if any symptoms worsened or new symptoms develop for requiring urgent evaluation. documented in this encounter [facility] 04-12-2024 History of Present illness Narrative DX: [id number] Posterior cervical laminoplasty, C4 to C7, with Globus Canopy laminoplasty system. LV: [id number] Ms Rubio returns today now 1 year out from her surgery. PE: Incision C/D/I, at neuro baseline, deltoids intact, she has lost some fascial integrity but the skin is still mobile over the spinous processes. INV: Standing lateral flex-ex cervical xrays, no issues IMP: 73yo female s/p C4-C7 laminoplasty, doing well at 1 year. PLAN: I told her if things change tomorrow to call the office. Otherwise I reminded her of the simple things - ice, sleep in the soft collar, ABCs twice a day and take a muscle relaxer at night. I want to see her for her two year follow up with standing lateral flexion-extension cervical spine xrays. documented in this encounter [facility] 03-20-2024 History of Present illness Narrative Images from the original note were not included. HISTORY OF PRESENT ILLNESS: POST OP PT Ashlee Banerjee is an 73 y.o. @ female. EST PT S/P (L) JESUS - NICKEL FREE 12/23/23 (12WKS 4DAYS)- FINISHED PT @ [facility] XRAYS 02/02/24 IN [facility] HX PT @ [facility] NOTES SOME DISCOMFORT- USING CANE TO AMBULATE WHEN OUTSIDE OF HOME- NOTES SORENESS- C/O FEET SWELLING- WEARS NAGI HOSE DURING THE DAY- GOOD ROM- NOTES WEAKNESS- +TYLENOL ES PRN/MELOXICAM REVIEW OF SYSTEMS: General: Denies fever, fatigue or weight loss Lungs: Denies SOB Cardio: Denies chest pain GI: Denies indigestion or abdominal pain Neuro: Denies numbness or tingling, denies new onset paralysis Musculoskeletal: ( see note) PHYSICAL EXAM: Left Ankle Exam Range of Motion Dorsiflexion: normal Plantar flexion: normal Muscle Strength Dorsiflexion: 5/5 Plantar flexion: 5/5 Comments: Left Hip Exam Left hip exam is normal. Tenderness The patient is experiencing no tenderness (minimal soreness to scar, no s/s of infefction). Range of Motion Abduction: normal Adduction: normal Extension: normal Flexion: normal Muscle Strength Adduction: 5/5 Flexion: 5/5 Other Erythema: absent Scars: present (well healing, no erythema, discharge or drainage) Sensation: normal Pulse: present Comments: The operative lower extremity was neurovascularly intact without any sensorimotor deficits noted distal to the operative hip. Patient was able to motor feet, toes, ankle and knee in all anatomic planes with 5 out of 5 strength to the operative lower extremity with abduction stress testing not preformed secondary to surgery healing. Dorsalis pedis and posterior tibial pulses were present and equal bilaterally. Sensation to light touch was intact all dermatomes to lower extremities bilaterally. Negative Homans and negative Tushar were noted bilaterally to lower extremities. There was no evidence of infection the lower extremities bilaterally. Compartments were soft to lower extremities bilaterally. XR hip left 2 or 3 views Imaging Result: AP and lateral of left hip showed acceptable position and alignment of left total hip arthroplasty. There was no evidence of loosening of the acetabular cup or femoral stem. Femoral head was well centered in the acetabular liner without evidence of asymmetric or accelerated wear. There was no gross evidence of fracture and/or dislocation. Impression: Unremarkable left total hip arthroplasty. Procedures No orders of the defined types were placed in this encounter. ASSESSMENT: ICD-10-CM 1. Status post left hip replacement Z96.642 PLAN: We have answered all the patients questions and explained the patients condition, decision making and plan including the risks and benefits associated with said plan in layman''s terms in a language the patient could understand easily. If patient''s symptoms significantly worsen and they cannot get a hold of us or their family physician, we have recommended that the patient proceed to the nearest emergency department (room). Dr. Gabriel obtained history and examined the patient, I am acting as scribe for Dr. Gabriel/jhon, PLAN: We have reviewed prior (L) hip xrays. Patient is please with her left hip progress as she admits her left hip is better now than it was prior to sx. She has good strength / ROM of her left hip with examination today. She presents in office today ambulating with cane ; states she does attempt to ambulate without it at home. We are recommending that patient follow up with PCP and she states she has a follow up scheduled next week 11/04 to discuss b/l swelling noted to her feet. We are recommending that she resume OTC nagi hose in attempt to decrease the swelling noted bilaterally. She is wanting to proceed with exercises at gym ; we have discussed avoiding motions including, but not limited to : no hip abduction machine, knee extension / flexion, seated leg press. We have discussed her HEP and restrictions and will see her back 3 months to reassess her left hip strength / ROM. Keith Gabriel D.O. documented in this encounter [facility] 02-22-2024 Telephone encounter Note Pt reports doing well, finishing up with therapy in coming weeks.. discussed travels to [place]. For appts.. pt will take breaks with travel.. pt pleased with progress, working on balance, occ tylenol. I am really doing well. [facility] 02-22-2024 Miscellaneous Notes Pt reports doing well, finishing up with therapy in coming weeks.. discussed travels to [place]. For appts.. pt will take breaks with travel.. pt pleased with progress, working on balance, occ tylenol. I am really doing well. Patient left vm asking for Andrei to call her back regarding her travel restrictions. Please advise [phone]. documented in this encounter [facility] 02-22-2024 Telephone encounter Note Patient left vm asking for Andrei to call her back regarding her travel restrictions. Please advise [phone]. [facility] 02-02-2024 History of Present illness Narrative Images from the original note were not included. HISTORY OF PRESENT ILLNESS: POST OP PT Ashlee Banerjee is an 73 y.o. @ female. (EST PT ; LAST APPT W/ ANDREI) S/P (L) JESUS - NICKEL FREE 12/23/23 (5WKS 6DAYS) XRAYS DONE TODAY, 02/02/24 IN [facility] CONTINUES TO HAVE DISCOMFORT - WORSE HS / DIFFICULTY SLEEPING ; TAKING TYLENOL PRN. CONTINUES THERAPY 3x WEEKLY @ [facility] - NOTES INCREASING ROM & STRENGTH - CONTINUES TO USE CANE / WALKER. SOME SWELLING - WEARS COMPRESSION SOCKS / ICING. FINISHED ELIQUIS ; HAS NOT RESTARTED ASA / MELOXICAM REVIEW OF SYSTEMS: General: Denies fever, fatigue or weight loss Lungs: Denies SOB Cardio: Denies chest pain GI: Denies indigestion or abdominal pain Neuro: Denies numbness or tingling, denies new onset paralysis Musculoskeletal: ( see note) PHYSICAL EXAM: Left Ankle Exam Range of Motion Dorsiflexion: normal Plantar flexion: normal Muscle Strength Dorsiflexion: 5/5 Plantar flexion: 5/5 Comments: Left Hip Exam Left hip exam is normal. Tenderness The patient is experiencing tenderness in the lateral (minimal soreness to scar, no s/s of infefction). Range of Motion Left hip abduction: not stressed with recent surgery. Adduction: normal Extension: normal Flexion: normal Muscle Strength Adduction: 5/5 Flexion: 5/5 Other Erythema: absent Scars: present (well healing, no erythema, discharge or drainage) Sensation: normal Pulse: present Comments: The operative lower extremity was neurovascularly intact without any sensorimotor deficits noted distal to the operative hip. Patient was able to motor feet, toes, ankle and knee in all anatomic planes with 5 out of 5 strength to the operative lower extremity with abduction stress testing not preformed secondary to surgery healing. Dorsalis pedis and posterior tibial pulses were present and equal bilaterally. Sensation to light touch was intact all dermatomes to lower extremities bilaterally. Negative Homans and negative Tushar were noted bilaterally to lower extremities. There was no evidence of infection the lower extremities bilaterally. Compartments were soft to lower extremities bilaterally. XR hip left 2 or 3 views Imaging Result: AP and lateral of left hip showed acceptable position and alignment of left total hip arthroplasty. There was no evidence of loosening of the acetabular cup or femoral stem. Femoral head was well centered in the acetabular liner without evidence of asymmetric or accelerated wear. There was no gross evidence of fracture and/or dislocation. Impression: Unremarkable left total hip arthroplasty. XR hip left 2 or 3 views Imaging Result: AP and lateral of left hip showed acceptable position and alignment of left total hip arthroplasty. There was no evidence of loosening of the acetabular cup or femoral stem. Femoral head was well centered in the acetabular liner without evidence of asymmetric or accelerated wear. There was no gross evidence of fracture and/or dislocation. Impression: Unremarkable left total hip arthroplasty. Procedures Orders Placed This Encounter Procedures XR hip left 2 or 3 views Order Specific Question: Reason for exam: Answer: POST-OP Ambulatory referral to Physical Therapy [facility] ; continue to increase strength / ROM of her left hip s/p (L) JESUS May flex past 90 degrees and may start abduction of left hip Standing Status: Future Standing Expiration Date: 08/01/2024 Referral Priority: Routine Referral Type: Rehabilitation - Outpatient Referral Reason: Specialty Services Required Requested Specialty: Physical Therapy Number of Visits Requested: 1 ASSESSMENT: ICD-10-CM 1. Status post left hip replacement Z96.642 Ambulatory referral to Physical Therapy 2. Acute hip pain, left M25.552 XR hip left 2 or 3 views Ambulatory referral to Physical Therapy PLAN: We have answered all the patients questions and explained the patients condition, decision making and plan including the risks and benefits associated with said plan in layman''s terms in a language the patient could understand easily. If patient''s symptoms significantly worsen and they cannot get a hold of us or their family physician, we have recommended that the patient proceed to the nearest emergency department (room). Dr. Gabriel obtained history and examined the patient, I am acting as scribe for Dr. Gabriel/jhon, PLAN: We have discussed (L) hip xrays with patient at bedside. Patient is pleased with her left hip progress as she admits her left hip is better now than it was prior to sx. She admits that she feels her leg lengths are equal. Patient proceeds to formal physical therapy at [facility] as an outpatient. Patient admits that she has been taking Meloxicam and ASA 81mg for years ; she is understanding we are recommending that she clear that per Dr. Eller. We have discussed her HEP and restrictions and will see her back on 03/20 to reassess her left hip. We will place her yearly b/l TKA appt on hold at this time. Keith Gabriel D.O. documented in this encounter [facility] 01-17-2024 Telephone encounter Note Mimi from [facility] called today and left vm wanting some clarification on pt for Eloquis- pt is saying something different than what than had down. Please call them to clarify at [phone] [facility] 01-17-2024 Miscellaneous Notes Mimi from [facility] called today and left vm wanting some clarification on pt for Eloquis- pt is saying something different than what than had down. Please call them to clarify at [phone] documented in this encounter [facility] 12-28-2023 Note [id number] 12-27-2023 Note Education Materials POST OPERATIVE TOTAL KNEE/HIP DISCHARGE INTRUCTIONS SURGEONS WRITTEN INSTRUCTIONS: Walk with walker; bear weight to tolerance on operative extremity Elevate extremity 1 hour 3 times/day to control pain and swelling and apply cyrocuff Range of motion to ankle 10 times/hour Range of motion to knee hourly Change dressing daily. Reapply silver dressing for next four days then discontinue Nagi hose (compression stockings) for 6 weeks Physical therapy as prescribed May shower, no tub bath. Do not rub/scrub incision. Wash gently Take Aspirin Eliquis 2.5mg twice a day to help prevent blood clots, for 14 days WHAT YOU SHOULD KNOW AFTER YOUR OPERATION: If you need pain pills, start before the pain becomes intense. Pain pills are frequently less upsetting to your stomach if you take them with food such as crackers or bread. If you have excessive or persistent pain, swelling, bleeding, nausea, vomiting or any other problems, you should first call your surgeon for advice. If you are unable to contact your surgeon, seek help from the emergency room. FOR THE PREVENTION OF DVT AFTER LOWER EXTREMITY SURGERY What is a DVT? There is always the risk of DVT after lower extremity surgery. DVT, or deep vein thrombosis, is a blood blot in a major vein that may partially or completely block the flow of blood. The clot occurs in the legs or pelvis, in areas where blood flow is slow, or in an injured blood vessel. DVT can be life-threatening should pieces of the clot break away and travel to the lungs. This is called pulmonary embolism What are the symptoms of DVT? The area affected by the blood clot may become swollen and painful, and possibly turn red as the normal flow of blood is blocked. You may also develop edema, which is the build up of fluid in the skin tissues surrounding the clot. If the clot is somewhere other than your leg, there may be no physical signs of DVT. If the clot breaks away and travels to your lungs, you may experience shortness of breath and chest pain. If this occurs you should call your doctor immediately or go to the emergency room. How can I prevent DVT? You should keep active. Moving the ankle and foot and bending the knee as tolerated when you are in bed and walking as tolerated. Take medication, especially the Aspirin, as prescribed by your doctor. What should I do if I think I have a DVT? You should call your doctor or go to the emergency room any time you have a sudden and unusual shortness of breath that is not related to exercise, exertion or anxiety. If you have swelling with redness and pain in your leg, you should call your doctor immediately. If there is concern then a test called ?Venous Doppler? can be done to rule of a DVT. #1 May shower and change dressing daily, no scrubbing or rubbing incision during shower just let the water run over the incision #2 stop smoking and drinking alcohol #3 ice to operative hip 20 minutes every hour while awake until pain and swelling control #4 flex and extend both feet/ankles 10 times per hour while awake #5 push both knees backwards into the bed 10 times every hour while awake, clench buttock muscles together 10 times every hour while awake #6 use walker weight-bear as tolerated to operative hip #7 No external rotation of the operative hip's foot, no kicking operative hip leg to the side, no flexion of operative hip past 90? #8 follow up in office with physician paperhanger assistant Andrei Dutta as scheduled #9 [facility] will be contacting you within the next 24 hours to set up home therapy visit #[address] Gabriel at the office [phone] or have him paged through the hospital mixing plant operator [phone] for any concerns or questions #[address] Gabriel if no bowel movement in 2 days Or if you're uncomfortable before that #12 You have been given a prescription for Percocet, Percocet is a narcotic, narcotics are addictive. If you feel you have problems with addiction, feel free to contact Dr. Gabriel, your family physician, or proceed immediately to the nearest hospitals emergency services department. #13 get up every 2 hours while awake and walk around the house in a safe area for 1-2 minutes with walker #14 knee-high NAGI hose to be worn daily for the next 30 days to prevent blood clots #15 take aspirin Eliquis 2.5 mg twice daily for 14 days to help prevent blood clots 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 Marital Status Single Phone Med Service Med/Surg Acct# Arrival 12/23/2023 05:40:58 Visit Reason SURGERY - LEFT TOTAL HIP - NICKEL FREE - DEPUY Acuity LOS 004 04:35 Address: [address] [place] [address] Comment: PROVIDER INFORMATION VITALS INFORMATION Vital Sign Triage Latest Temp Oral 37 DegC 37.5 DegC Temp Temporal 35.6 DegC 35.6 DegC Temp Intravascular Temp Axillary Temp Rectal 02 Sat 100 % 100 % Respiratory Rate 18 br/min 18 br/min Peripheral Pulse Rate 74 bpm 76 bpm Apical Heart Rate Blood Pressure 136 mmHg / 64 mmHg 151 mmHg / 77 mmHg Comment: MEDICAL INFORMATION Allergy Info: Lactose; Sulfite Allergy; Nickel; morphine; penicillin Medication List: New Medications [id number], [address], [place] [id number], [phone] apixaban (Eliquis 2.5 mg oral tablet) 1 tab(s) Oral (given by mouth) 2 times per day. Refills: 0. Medications to Continue That Have Not Changed Other Medications acetaminophen (Tylenol Extra Strength 500 mg oral tablet) 2 tab(s) Oral (given by mouth) 2 times per day as needed pain. atorvastatin (atorvastatin 20 mg oral tablet) 1 tab(s) Oral (given by mouth) every day. carvedilol (carvedilol 25 mg oral tablet) 1 tab(s) Oral (given by mouth) 2 times per day. cycloSPORINE ophthalmic (Restasis 0.05% ophthalmic emulsion) 1 drop Eye-Both 2 times per day. hydroCHLOROthiazide (hydroCHLOROthiazide 12.5 mg oral tablet) 1 tab(s) Oral (given by mouth) every day. iron polysaccharide (Ferrex-150 oral capsule) 1 cap(s) Oral (given by mouth) every day. levothyroxine (levothyroxine 100 mcg (0.1 mg) oral tablet) 1 tab(s) Oral (given by mouth) every day. meloxicam (meloxicam 15 mg oral tablet) 1 tab(s) Oral (given by mouth) every day. metFORMIN (metFORMIN 500 mg oral tablet) 1 tab(s) Oral (given by mouth) 2 times per day. multivitamin with minerals 1 tab(s) Oral (given by mouth) At bedtime. ocular lubricant (TheraTears) 2 Drops Eye-Both every day. omega-3 polyunsaturated fatty acids (omega-3 polyunsaturated fatty acids 200 mg oral capsule) 1 cap(s) Oral (given by mouth) At bedtime. polyethylene glycol 3350 (MiraLax oral powder for reconstitution) 17 gram Oral (given by mouth) every day. dissolve in water before taking. psyllium (psyllium 3.4 g/5.2 g oral powder for reconstitution) 1.7 gram Oral (given by mouth) every day as needed for constipation. Template Non-Formulary (Restore) 1 tab(s) Oral (given by mouth) every day. tiZANidine (tiZANidine 4 mg oral tablet) 1 tab(s) Oral (given by mouth) once a day (at bedtime) as needed spasm. traZODone (traZODone 50 mg oral tablet) 1 tab(s) Oral (given by mouth) once a day (at bedtime) as needed insomnia. ubiquinone (CoQ10 100 mg oral capsule) 1 tab(s) Oral (given by mouth) every day. ursodiol (ursodiol 500 mg oral tablet) 1 tab(s) Oral (given by mouth) 2 times per day. valsartan (valsartan 320 mg oral tablet) 1 tab(s) Oral (given by mouth) every day. No Longer Take the Following Medications aspirin (aspirin 81 mg oral capsule) 1 cap(s) Oral (given by mouth) every 4 hours.. not to exceed 12 capsules/day. Comment: Lab and Radiology Results Laboratory or Other Results This Visit (last charted value for your 12/23/2023 visit) Hematology 12/26/2023 5:51 AM Hct: 25.9 % -- Normal range between ( 33.7 and 40.4 ) Hgb: 8.8 gm/dL -- Normal range between ( 11.3 and 15.9 ) MCH: 31 pg -- Normal range between ( 24 and 34 ) MCHC: 34 gm/dL -- Normal range between ( 26 and 37 ) MCV: 91 fL -- Normal range between ( 81 and 100 ) MPV: 9.3 fL -- Normal range between ( 6.3 and 10.2 ) Platelet: 86 x103/mcL -- Normal range between ( 138 and 427 ) RBC: 2.83 x106/mcL -- Normal range between ( 3.70 and 5.30 ) RDW: 14.4 % -- Normal range between ( 11.5 and 15.0 ) WBC: 7.0 x103/mcL -- Normal range between ( 3.5 and 10.5 ) Auto Eos %: 0.9 % -- Normal range between ( 0.9 and 4.0 ) Auto Lymph %: 19 % -- Normal range between ( 14 and 48 ) Auto Neut %: 66 % -- Normal range between ( 44 and 88 ) Eos Abs#: 0.1 x103/mcL -- Normal range between ( 0.0 and 0.4 ) Lymph Abs#: 1.3 x103/mcL -- Normal range between ( 1.3 and 2.9 ) [facility] Abs#: 0.9 x103/mcL -- Normal range between ( 0.0 and 0.8 ) Auto Baso %: 1.2 % -- Normal range between ( 0.2 and 2.0 ) Auto [facility] %: 13 % -- Normal range between ( 1 and 12 ) Baso Abs#: 0.1 x103/mcL -- Normal range between ( 0.0 and 0.2 ) Neut Abs#: 4.7 x103/mcL -- Normal range between ( 1.5 and 9.2 ) Urinalysis 12/25/2023 1:25 PM UA Blood: NEGATIVE UA Color: Yellow UA Glucose: NEGATIVE UA Ketones: NEGATIVE UA Leuk Est: NEGATIVE UA Nitrite: NEGATIVE UA Protein: NEGATIVE UA Urobilinogen: 0.2 mg/dL -- Normal range between ( 0.2 and 1.0 ) UA pH: 6.0 -- Normal range between ( 5 and 8 ) UA S (more content not included)... [facility] 12-25-2023 Note [id number] [facility] 11-29-2023 History of Present illness Narrative Images from the original note were not included. Chief Complaint: Primary biliary cholangitis (PBC) History of Present Illness: Ashlee Banerjee is a 73 y.o. female who presents to the [facility] G[facility] Hep[facility]ology, [facility] Nutrition [facility] today regarding for follow up. I have reviewed her extensive medical, surgical, family and social history and have updated medication and allergy information in the computerized patient record. Mrs. Banerjee is a 73-year-old woman with HTN, hyperlipidemia and PBC. She followed with Carol Minor APRN as well. Mrs. Banerjee denies any acute complaints or concerns today. She denies jaundice, scleral icterus, pruritus, encephalopathy, rectal bleeding, ascites or additional concerns for hepatic decompensation. She remains on Ursodiol 500 mg BID. Ocaliva was discontinued a few years ago. She denies alcohol use or recreational drug use. She has lost approximately 70 pounds over the last 20 years with portion control. Mrs. Banerjee had cervical spinal stenosis s/p repair on 03/31/2023. Patient will have a left total hip arthroplasty soon. MELD near 10 on prior labs. ROS: No recent fever, chills, sweats, weight change, dysphagia, chest pain, cough, wheezing, dyspnea, abdominal pain, nausea, vomiting, diarrhea, melena, hematochezia or lightheadedness. Other pertinent positives listed in HPI. Remaining complete ROS negative. No Patient Care Coordination Note on file. Patient Active Problem List Diagnosis Obesity (BMI 30.0-34.9) Past Medical History She has a past medical history of Diabetes mellitus, Hyperlipidemia, Hypothyroidism, and OAB (overactive bladder). 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 carveDILOL 25 MG tablet Take 1 tablet by mouth 2 times daily with meals. cetirizine 10 MG tablet Take 1 tablet by mouth daily. Cholecalciferol (VITAMIN D3 PO) Take 1 tablet by mouth daily. Coenzyme Q10 (CO Q 10 PO) Take 1 tablet by mouth daily. cyclosporin 0.05 % Emulsion ophthalmic suspension 1 drop 2 times daily. hydroCHLOROthiazide 12.5 MG capsule Take 1 capsule by mouth daily. meloxicam (Mobic) 15 MG tablet Take 0.5 tablets by mouth daily. metFORMIN 500 MG tablet Take 1 tablet by mouth 2 times daily. olopatadine (Pataday) 0.1 % Solution ophthalmic solution 1 drop 2 times daily as needed for Allergies. omega-3 acid ethyl esters 1 g capsule Take 2 capsules by mouth daily. Vit-Fe Fumarate-FA ( VITAMIN PO) Take 1 tablet by mouth daily. Synthroid 100 MCG tablet Take 1 tablet by mouth daily. traZODone 50 MG tablet Take 0.5 tablets by mouth At bedtime. Triamcinolone Acetonide (NASACORT AQ NA) by Nasal route. ursodiol 300 MG capsule Take 1 capsule by mouth 4 times daily. Takes 2 capsules in the am and 2 capsules in the pm Valsartan 160 MG tablet Take 2 tablets by mouth daily. Allergies Allergen Reactions Morphine Rash Nickel Rash Penicillins Swelling Sulfites Itching and Sneezing Social History Social History Narrative Not on file Substance Abuse History She reports that she has quit smoking. Her smoking use included cigarettes. She has never used smokeless tobacco. She reports that she does not currently use alcohol. She reports that she does not use drugs. Family History Her family history includes Alzheimer's in her father and mother; Diabetes in her mother; Heart Disease - Other in her father; Hypertension in her mother; Myocardial Infarction in her maternal grandfather; Thyroid Disease in her sister. Physical Exam BP 132/62 Pulse 76 Temp 98.4 F (36.9 C) (Temporal) Ht 1.549 m (5' 1 ) Wt 62.6 kg (138 lb) SpO2 99% BMI 26.07 kg/m Smoking Status Former Body mass index is 26.07 kg/m . General: Well developed, well nourished female in no acute distress Eyes: Pupils equal and round, extraocular muscles intact, no scleral icterus ENT: Normal oropharynx, no cervical lymphadenopathy CV: Regular rate and rhythm, normal S1/S2; no murmurs, rubs or gallops Resp: Normal breath sounds; no crackles, wheezing, rhonchi or accessory muscle use Abd: Soft, nontender, nondistended, normal bowel sounds; no ascites or organomegaly Extremities: Warm and well perfused, no LE edema Skin: No rash, jaundice or palmar erythema Neuro: No asterixis or focal deficits; AAOx4 Psych: Normal affect, cooperative Labs/Imaging: US with elastography at [facility] on 07/18/20 demonstrated mild fatty infiltration, cholelithiasis. Elastography indicated mild-moderated risk for fibrosis. CTAP 01/28/2018 with the following findings: No acute findings identified. Findings of cirrhosis are demonstrated with underlying steatosis. Cholelithiasis. Punctate left nephrolithiasis. Right renal cyst. US Elastography 09/2022: 12/03/2022 ABD US: Nodular hepatic contour. Cholelithiasis. Non-obstructing nephrolithiasis on right. 11/04/2023 Spleen US: Mild splenomegaly. Lab Results Component Value Date WBC 4.06 11/29/2023 HGB 10.8 (L) 11/29/2023 HCT 34.2 (L) 11/29/2023 PLATELET 91 (L) 11/29/2023 MCV 94.0 11/29/2023 MELD PELD: 9 at 11/29/2023 2:44 PM Calculated from: Serum Creatinine: 0.99 mg/dL (Using min of 1 mg/dL) at 11/29/2023 2:44 PM Total Bilirubin: 0.5 mg/dL (Using min of 1 mg/dL) at 11/29/2023 2:44 PM INR(ratio): 1.3 at 11/29/2023 2:44 PM Age: 73 years ASSESSMENT/PLAN: Mrs. Banerjee is a 73-year-old woman with HTN, hyperlipidemia and PBC. 1. No signs of HCC on 10/2023 ABD US. Hepatic fibrosis may be over-estimated on imaging in patients with PBC. Ordered a transjugular liver biopsy with hepatic venous pressure measurements through IR. 2. Mild splenomegaly on 10/2023 US. 3. Labs (BMP, LFTs, INR) today with an updated MELD score. 4. Patient has undergone upper endoscopies and colonoscopies through Dr. Patino. 5. Advised patient to follow a low sodium, high protein diet. Glucerna (for diabetics), Boost, Ensure and carnation instant breakfast are very important sources of nutrients. Egg whites, tuna, other fish, chicken and beans are good options as well. 6. Continue Ursodiol 500 mg BID. 7. Return to clinic in one year. I spent over 40 minutes of time in this encounter on the day of service. Lakisha Cordoba MD Associate Clinical Professor Division of Gastroenterology, Hepatology and Nutrition [facility] Patient has verified full name and . documented in this encounter [facility] 11-29-2023 Instructions Lakisha Cordoba MD - 11/29/2023 2:00 PM EDT It was very nice seeing you today. 1. I have ordered a number of labs to assess the status of your liver disease. 2. Will monitor labs every 4 months. Please have our team print your standing lab orders (CBC and LFTs). 3. Ordered an specialized liver biopsy as discussed. 4. Would continue ursodiol at current dosing. 5. Return to clinic in one year. documented in this encounter [facility] 09-15-2023 History of Present illness Narrative DX: [id number] Posterior cervical laminoplasty, C4 to C7, with Globus Canopy laminoplasty system. LV: 17jun2023 Ms Rubio returns today now 6 months out from her surgery. She is dealing with some L hip issues - bursitis vs hip arthritis. PE: Incision C/D/I, at neuro baseline, deltoids intact, she has lost some fascial integrity but the skin is still mobile over the spinous processes. INV: Standing lateral flex-ex cervical xrays, no issues IMP: 72yo female s/p C4-C7 laminoplasty, doing well at 6 months PLAN: No restrictions. She is going to continue doing her exercises twice a day, sleep in the soft collar for neck hurts and take the Flexeril at night. I will see her back for her 1 year postop with standing lateral flexion-extension views of her cervical spine. documented in this encounter [facility] 06-17-2023 History of Present illness Narrative Patient was identified by name and date of . Lisa Huff RN Patient at risk for falls:No Falls Risk protocol implemented: No DX: [id number] Posterior cervical laminoplasty, C4 to C7, with Globus Canopy laminoplasty system. LAST VISIT: [id number] Ruddy SIMON Ms Rubio returns today. Normal bowel habits. Denies fever/chills. PE: Incision C/D/I, at neuro baseline, deltoids intact. [place] removed from surgical incision, steri-strips applied. INV: [...] her cervical spine. documented in this encounter [facility] 05-04-2023 Telephone encounter Note RN called pt. Pt answered. Pt [...] Pt asked how to send messages in Aspida. RN let her know to make sure she is logged into her Nomiost and to send messages to Dr Vergara and they will get to his RN. Pt agreeable. No further questions. Pt verbalized understanding. ----- Message from Judith Palm sent at 05/04/2023 12:15 PM EST ----- Regarding: clarification Needs clarification on her neck exercises. Please call. [facility] 05-04-2023 Miscellaneous Notes RN called pt. Pt answered. Pt wanted [...] Pt asked how to send messages in Aspida. RN let her know to make sure she is logged into her Nomiost and to send messages to Dr Vergara and they will get to his RN. Pt agreeable. No further questions. Pt verbalized understanding. ----- Message from Judith Palm sent at 05/04/2023 12:15 PM EST ----- Regarding: clarification Needs clarification on her neck exercises. Please call. documented in this encounter [facility] 04-22-2023 History of Present illness Narrative Soft cervical collar dispensed to patient in clinic. Patient was identified by name and date of . Addie Fox RN Patient at risk for falls:Yes [...] the cervical spine. documented in this encounter [facility] 04-09-2023 Telephone encounter Note RN called [facility] back. Spoke with Tasha who had originally called. Advised pt's justine are to stay in place until follow up appt on 04/22/23. Pt ok to shower, mild soap and water can run over the incision. No vigorous scrubbing. Pat dry. Leave open to air or cover lightly with dry gauze and change daily. Tasha agreeable. No further questions. Tasha verbalized understanding. ----- Message from Maura Trotter sent at 04/08/2023 4:13 PM EST ----- Regarding: ? from [facility] Deacon Cordoba [phone] Calling to question can she get a shower ? Hair washed ? Still has justine - Dressing off today [facility] 04-09-2023 Miscellaneous Notes RN called [facility] back. Spoke with Tasha who had originally called. Advised pt's justine are to stay in place until follow up appt on 04/22/23. Pt ok to shower, mild soap and water can run over the incision. No vigorous scrubbing. Pat dry. Leave open to air or cover lightly with dry gauze and change daily. Tasha agreeable. No further questions. Tasha verbalized understanding. ----- Message from Maura Trotter sent at 04/08/2023 4:13 PM EST ----- Regarding: ? from [facility] Deacon Cordoba [phone] Calling to question can she get a shower ? Hair washed ? Still has justine - Dressing off today documented in this encounter [facility] 03-23-2023 History of Present illness Narrative DX: Cervical spondylosis with myelopathy LV: [id number] Ms Banerjee comes in today with family. [...] of their surgery. documented in this encounter [facility] 03-23-2023 Instructions Dee Mireles APRN-SHEILA - 03/23/2023 11:05 AM EDT On the [...] all Co Q 10 , Vitamin E, [place] 3, fish oil and herbal supplements for 1 week prior to surgery Do not take Valsartan,hydrochlorothiazide morning of surgery Don't take any metformin evening before and the morning of surgery Do not take any diabetes medication on the morning of the surgery documented in this encounter [facility] 03-23-2023 Instructions Dee Mireles APRN-CNP - [...] all Co Q 10 , Vitamin E, [place] 3, fish oil and herbal supplements for 1 week prior to surgery Do not take Valsartan,hydrochlorothiazide morning of surgery Don't take any metformin evening before and the morning of surgery Do not take any diabetes medication on the morning of the surgery documented in this encounter [facility] 03-23-2023 Evaluation note Patient was identified by name and date of . Kassandra Griggs Patient at risk for falls:No Falls Risk protocol implemented: No [facility] 03-23-2023 Miscellaneous Notes Patient was identified by name and date of . Kassandra Griggs Patient at risk for falls:No Falls Risk protocol implemented: No Images from the original note were not included. Presurgical Evaluation (Pre-Admission Testing) Consultation Ashlee Banerjee, [id number] 72 year old Female 03/23/2023 Consult placed to PSE by Dr. Vergara Patient needs a PSE TELEPHONE ASSESSMENT Total Score: 4 1 Patient has exhibited symptoms of Diabetes in the past. 2 Patient is on more than 2 antihypertension medications. 1 Patient has history of hyperlipidemia. Ashlee Banerjee is scheduled for LAMINOPLASTY, POSTERIOR CERVICAL [...] MCG (2000 UT) TABS Take by mouth. [place] 3-6-9 Fatty Acids (TRIPLE [place]MEGA-3-6-9 ORAL) Take [...] Signed During This Encounter GLUCOSE, FINGERSTICK-IN OFFICE [40716] BASIC METABOLIC PANEL [CH8] HEPATIC FUNCTION PANEL [HEPATIC] COMPLETE BLOOD COUNT W/DIFF (RAPID RESPONSE LABS) PROTHROMBIN TIME AND INR [PT] PARTIAL THROMBOPLASTIN TIME [APTT] TYPE AND SCREEN [TS] Abo Rh Type Complete Blood Count W/Diff EKG 12-LEAD TRACING [35308] LABORATORY DATA: Contains abnormal data HEMOGLOBIN A1C Order: [id number] Component Ref Range & Units 3 mo [...] 10:50 AM 03/23/2023 documented in this encounter [facility] 03-23-2023 Miscellaneous Notes Patient was identified by name and date of . Kassandra Griggs Patient at risk for falls:No Falls Risk protocol implemented: No Images from the original note were not included. Presurgical Evaluation (Pre-Admission Testing) Consultation Ashlee Banerjee, [id number] 72 year old Female 03/23/2023 Consult placed to PSE by Dr. Vergara Patient needs a PSE TELEPHONE ASSESSMENT Total Score: 4 1 Patient has exhibited symptoms of Diabetes in the past. 2 Patient is on more than 2 antihypertension medications. 1 Patient has history of hyperlipidemia. Ashlee Banerjee is scheduled for LAMINOPLASTY, POSTERIOR CERVICAL [...] MCG (2000 UT) TABS Take by mouth. [place] 3-6-9 Fatty Acids (TRIPLE OMEGA-3-6-9 ORAL) Take [...] Signed During This Encounter GLUCOSE, FINGERSTICK-IN OFFICE [42306] BASIC METABOLIC PANEL [CH8] HEPATIC FUNCTION PANEL [HEPATIC] COMPLETE BLOOD COUNT W/DIFF (RAPID RESPONSE LABS) PROTHROMBIN TIME AND INR [PT] PARTIAL THROMBOPLASTIN TIME [APTT] TYPE AND SCREEN [TS] Abo Rh Type Complete Blood Count W/Diff EKG 12-LEAD TRACING [16044] LABORATORY DATA: Contains abnormal data HEMOGLOBIN A1C Order: [id number] Component Ref Range & Units 3 mo [...] 10:50 AM 03/23/2023 documented in this encounter [facility] 03-22-2023 Evaluation note Images from the original note were not included. Presurgical Evaluation (Pre-Admission Testing) Consultation Ashlee Banerjee, [id number] 72 year old Female 03/23/2023 Consult placed to PSE by Dr. Vergara Patient needs a PSE TELEPHONE ASSESSMENT Total Score: 4 1 Patient has exhibited symptoms of Diabetes in the past. 2 Patient is on more than 2 antihypertension medications. 1 Patient has history of hyperlipidemia. Ashlee Banerjee is scheduled for LAMINOPLASTY, POSTERIOR CERVICAL [...] MCG (2000 UT) TABS Take by mouth. [place] 3-6-9 Fatty Acids (TRIPLE OMEGA-3-6-9 ORAL) Take [...] Signed During This Encounter GLUCOSE, FINGERSTICK-IN OFFICE [42964] BASIC METABOLIC PANEL [CH8] HEPATIC FUNCTION PANEL [HEPATIC] COMPLETE BLOOD COUNT W/DIFF (RAPID RESPONSE LABS) PROTHROMBIN TIME AND INR [PT] PARTIAL THROMBOPLASTIN TIME [APTT] TYPE AND SCREEN [TS] Abo Rh Type Complete Blood Count W/Diff EKG 12-LEAD TRACING [76753] LABORATORY DATA: Contains abnormal data HEMOGLOBIN A1C Order: [id number] Component Ref Range & Units 3 mo [...] Interviewer signature: ALEXANDER Alvarez 10:50 AM 03/23/2023 [facility] 02-11-2023 History of Present illness Narrative A soft cervical collar was dispensed to patient in clinic today. Patient was identified by name and date of . Lisa Huff RN Patient at risk for falls:Yes Falls Risk protocol implemented: Yes Ambulates with cane Lisa Huff RN Images from the original note were not included. DX: Cervical myelopathy LV: [id number] Ms Banerjee returns today. She received a ANAHY [id number]. It affected her neck symptoms on the left side but it did not affect her low back pain. INV: MRI cervical performed [id number] IMP: 71yo female significant cervical cord compression, significant clinical myelopathy. PLAN: I again offered her surgery. I am not sure how the ANAHY was done. She can call the office schedule surgery or follow up every 4-6 months. documented in this encounter [facility] 12-24-2022 History of Present illness Narrative Patient was identified by name and date of . Lisa Huff RN Patient at risk for falls:No Falls Risk protocol implemented: No Images from the original note were not included. DX: Cervical myelopathy LV: [id number] Ms Banerjee returns today. Benito Rafa pain management refused to do a ANAHY. She is going to talk to her new pain management docs in [place]. INV: MRI cervical performed [id number] IMP: 71yo female significant cervical cord compression [...] every 4-6 months. documented in this encounter [facility] 11-10-2022 Evaluation + Plan note Extrac [...] substances from her current pain provider at [place]. She wishes to continue receiving those prescriptions [...] understanding and agrees with plan of care [facility]06-08[facility] History of Present illness Narrative* Lisa Huff RN - 10/29/2022 9:58 AM EDT Patient was identified by name and date of . Lisa Huff RN Patient at risk for falls:No Falls Risk protocol implemented: No * Geri Vergara MD - 10/28/2022 6:37 AM EDT Images from the original note were not included. DX: Lumbar stenosis rule out cervical myelopathy LV: [id number] Ms Banerjee returns today to review the new cervical MRI. Remember, she received a LESI which DID NOT affect her symptoms INV: MRI cervical performed [id number] IMP: 71yo female significant cervical cord compression [...] will consider her options. documented in this [id number] NoteCONSULTATION PROCEDURE DATE: 07/30/2022 PREOPERATIVE DIAGNOSIS: Bilateral [...] will be followed up in the office.[facility] 07-30-2022 NoteCONSULTATION CONSULTATION DATE: 07/30/2022 HISTORY OF PRESENT ILLNESS: This is a 71-year-old female who returns to the clinic status post lumbar epidural steroid injection completed on 07/07/2022. This patient received a lumbar epidural and it afforded only 10% relief. Historically, she has received much better relief, and she is disappointed. Medications include Winters 5/325 b.i.d., Mobic 15 mg daily, Tylenol and trazodone. Patient has seen Dr. Geri Vergara, neurosurgeon, at [facility], but he has since moved to [facility]. She is going to follow up [...] in two months' time, unless otherwise indicated.[facility] [id number] NoteCONSULTATION CONSULTATION DATE: 06/25/2022 HISTORY OF PRESENT ILLNESS: This is a 71-year-old female who returns to the clinic following neurosurgical evaluation with Dr. Geri Vergara at [facility] in [place]. She was last seen in the office [...] denies any falls or injuries. Medications include Winters 5/325 daily p.r.n., which she does use [...] mg daily and maintain her on her Winters 5/325 p.r.n. Patient agrees with the procedure and will be followed up in the clinic thereafter.[facility] [id number] Evaluation + Plan noteExtracted from: Title:Spine Follow [...] She will follow-up with spine as needed. [facility]12[facility]15[facility]2022 NoteCONSULTATION PROCEDURE DATE: 05/07/2022 PREOPERATIVE DIAGNOSIS: Left [...] will be followed up in the office.[facility] [id number] NoteCONSULTATION CONSULTATION DATE: 05/07/2022 HISTORY OF PRESENT [...] consent to. We will start her on Winters 5/325 once or twice daily p.r.n. for pain. We are sending a referral to Neurosurgery to Dr. Florian Vergara in [facility]. Patient agrees with this plan of care, will be followed up here in two months' time, unless otherwise indicated.[facility] [id number] NoteCONSULTATION CONSULTATION DATE: 04/22/2022 This is a [...] of care. The patient is in agreement.[facility] [id number] NoteCONSULTATION CONSULTATION DATE: 03/18/2022 HISTORY OF PRESENT [...] followed up in the office post procedure.[facility] [id number] NoteCONSULTATION CONSULTATION DATE: 02/19/2022 HISTORY OF PRESENT [...] followed up in the office post procedure.[facility] [id number] Note CONSULTATION CONSULTATION DATE: 11/19/2021 HISTORY OF [...] Patient agrees with the plan of care. [facility] Signed and Approved by: ANDREW CALLEJAS . 11/20/2021 13:37:00[facility]05-19-2022 NoteCONSULTATION CONSULTATION DATE: 10/09/2021 This 70-year-old [...] followed up in the office post procedure. [facility] Signed and Approved by: ANDREW CALLEJAS . 10/13/2021 14:58:00[facility]03-15-2022 History of Present illness Narrative* Delores [...] a responsible adult. Yes documented in [facility] Phone: 1(105) 581-895503-15-2022 Hospital Discharge instructions* Instructions* Delores Wilson RN [...] urine. Call Dr. Alvarenga for any questions [phone] documented in this encounterMeta Pharmaceutical Services Phone: 1(286) 431-375803-02-2022 History of Present illness Narrative* Sayda Sepulveda RN - 07/23/2021 9:00 AM EST [facility] Preadmission Testing Name: Ashlee Brown Sindy : 1950 Patient (home) Procedure INTERSTIM REPLACEMENT Date of Procedure: 08/05/21 Surgeon: Mj Alvarenga MD Ht: 5' 1 (154.9 cm) [...] stress test? [x] Yes [] No When/where: [facility] Was it normal? [x] Yes [] No Do you or your family have a history of Malignant Hyperthermia? [] Yes [x] No Patient instructed on: [x] NPO Status [x] Meds to Take Day of Surgery [x] Ride Home [x]No Jewelry/Contact Lenses/Dentures day of surgery [x] Chlorhexidene PAT Call/Visit Questions Person Interviewed: ASHLEE Relationship to Patient: Patient Surgery Time Verified: Yes Surgery Location Verified: Yes NPO Status Reinforced: Yes Ride and Caregiver Arranged: Yes Ride Caregiver Provider: MOHANARUN CHG Bottle/Wipes provided with instructions for use: [...] instructions reviewed with patient. documented in this encounterW[facility] HospitalR[facility] Phone: evaluation + Plan note No data available for this section [facility] note Future Appointments Appointment Date:06/16/2022 01:30:00 PM Scheduled Provider:Janie Henning PA-C Location:.[facility] Clinic Appointment Type:Sp[facility] - Follow Up (FT) [facility]* Diagnosis Preop testing Preoperative examination, unspecified documented in this encounter [employer] Phone: evaluation note* Diagnosis OAB (overactive bladder)- Primary Hypertonicity of bladder Mixed incontinence Mixed incontinence urge and stress (male)(female) documented in this encounter [employer] Phone: evaluation note* Diagnosis Urinary urgency Urgency of urination documented in this encounter [facility] Phone: evalrwcbcu note* Diagnosis Urinary urgency Urgency of urination Frequency of micturition Urinary frequency documented in this encounter [facility] Phone: evalnjrtil note* Diagnosis Spinal stenosis of lumbar region, [...] note* Diagnosis Cervical spondylosis with myelopathy- Primary Myelopathy (HCC) Unspecified disease of spinal cord [facility] Diagnosis Cervical spondylosis with myelopathy [facility]* Diagnosis Primary biliary cholangitis- Primary Abnormal LFTs Other abnormal blood chemistry Splenomegaly Other abnormal tumor markers [facility] Diagnosis Status post left hip replacement- Primary [facility]* Diagnosis Nocturia documented in this encounter [facility] note* Diagnosis Cervical spondylosis with myelopathy- Primary [facility]* Diagnosis Cervical spondylosis with myelopathy [facility]* Diagnosis Status post left hip replacement- Primary Acute hip pain, left documented in [facility]* Diagnosis Left hip pain- Primary Pain in joint, pelvic region and thigh Status post left hip replacement documented [facility]* Diagnosis Liver fibrosis Cirrhosis of liver without mention of alcohol [facility] Diagnosis Acute abdominal pain- Primary Abdominal pain, unspecified site Primary biliary cirrhosis (HCC) / 2003 / MRI 2022 Biliary cirrhosis Essential hypertension Unspecified essential hypertension Type 2 diabetes mellitus without complication, without long-term current use of insulin (HCC) / Metformin ER Gastrointestinal hemorrhage associated with anorectal source Hypovolemic shock (HCC) Other shock without mention of trauma documented in this encounter [facility] note* Diagnosis GI bleed- Primary Unspecified, hemorrhage of gastrointestinal tract Gastrointestinal hemorrhage with melena Gastrointestinal hemorrhage, unspecified gastrointestinal hemorrhage type Acute blood loss anemia Acute posthemorrhagic anemia Iron deficiency anemia, unspecified iron deficiency anemia type Right upper quadrant abdominal pain [facility] No data available for this section [facility] Discharge instructions* Attachments The following attachments cannot be sent through Care Everywhere. * Blood Transfusions: General Info (Estonian) [facility] Discharge instructionsNot on filedocumented in this encounterMiami [facility] InstructionsNot on filedocumented in this encounterMiami [facility] Hospital Progress note No data available for this section [facility] for referral (narrative)* Consultation (Routine) - New Request Specialty Diagnoses / Procedures Referred By Contac t Referred To Contact Diagnoses Primary biliary cholangitis Abnormal LFTs Splenomegaly Lakisha Cordoba MD [address] [place] [address] [address] [place] [address] Referral ID Status Reason Start Date Expiration Date V isits Requested Visits Authorized [id number] New Request 11/29/2023 12/23/2024 1 1 [facility] for visit Narrative* Auth/Cert Specialty Diagnoses / Procedures Referred By Contac t Referred To Contact Diagnoses OAB (overactive bladder) OAB MIXED CONTINENCE Procedures NH OPEN IMPLANTATION JENNI SACRAL NERVE SACRAL NERVE STIMULATOR IMPLANT--REMOVE INTERSTIM AND LEADS PLACEMENT OF NEW INTERSTIM Mj Alvarenga MD [address] [facility], [address] [place] [address] [employer] [address] [place] [address] Referral ID Status Reason Start Date Expiration Date Visits Re quested Visits Authorized [id number] 1 1 [employer] Phone: reason for visit Narrative* Diagnostic X-Ray (Routine) - Closed Specialty Diagnoses / Procedures Referred By Contac t Referred To Contact Radiology Diagnoses Cervical spondylosis with myelopathy Procedures XR C-SPINE FLEX/EXT ONLY 2 VIEWS Geri Vergara MD [address] [place] [address] Phone: tel: fax: [facility] [address] [place] [address] Phone: tel: Referral ID Status Reason Start Date Expiration Date Visits Re quested Visits Authorized [id number] Closed 04/12/2024 04/12/2025 1 1 [facility] for visit Narrative* Auth/Cert Specialty Diagnoses / Procedures Referred By Contac t Referred To Contact Diagnoses Liver fibrosis Liver fibrosis [K74.00] Procedures CHG HEPATC VNGRPH WDG/FR HEMODYN EVAL RS&I NH TRANSCATHETER BIOPSY CHG TRANSCATHETER BIOPSY RS&I VENOGRAPHY HEPATIC W/HEMODYNM EVALUATION W/S&I BX TRANSCATHETER BX TRANSCATHETER W/ S&I [address] [place] [address] Phone: tel: [facility]: [facility] [address] [place] [address] Referral ID Status Reason Start Date Expiration Date Visits Re quested Visits Authorized [id number] 1 1 [facility] N[facility]* Auth/Cert Specialty Diagnoses / Procedures Referred By Contrios t Referred To Contact Diagnoses Acute abdominal pain Cooper Eller MD [address] [place] [address], [place] [address] Phone: tel: fax: [facility] [address] [place] [address] Referral ID Status Reason Start Date Expiration Date Visits Re quested Visits Authorized [id number] [facility] Narrative* Auth/Cert Specialty Diagnoses / Procedures Referred By Contrios t Referred To Contact Diagnoses GI Bleed [facility] [address] [place] [phone] Referral ID Status Reason Start Date Expiration Date Visits Re quested Visits Authorized [id number] 1 1 [facility] Assessments Diagnosis Mixed incontinence Mixed incontinence urge and stress (male)(female) OAB (overactive bladder) Hypertonicity of bladder Frequency of urination Urinary frequency Urgency of urination Diagnosis Mixed incontinence Mixed incontinence urge and stress (male)(female) Diagnosis Renal stones Calculus of kidney Advance Directives No Advanced Directives Records FoundDocuments on File Type Date Recorded 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 Advance Directives and Living Will Power of Roof Bolting Coal Miner Latest Code Status on File Code Status Date Activated Date Inactivated Comments Full Code 04/07/2016 12:51 PM 04/07/2016 6:11 PM Full Code 03/24/2016 7:53 AM 03/24/2016 2:13 PM Documents on File Type Date Recorded 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 ACP-Advance Directive ACP-Power of Roof Bolting Coal Miner Latest Code Status on File Code Status Date Activated Date Inactivated Comments Full Code 04/07/2016 12:51 PM 04/07/2016 6:11 PM Full Code 03/24/2016 7:53 AM 03/24/2016 2:13 PM Latest Code Status on File Code Status Date Activated Date Inactivated Comments Full Code 08/05/2021 12:10 PM Full Code 04/07/2016 12:51 PM 04/07/2016 6:11 PM Documents on File Type Date Recorded 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 Date Activated Date Inactivated Comments 08/05/2021 12:10 PM 08/05/2021 6:52 PM Date Activated Date Inactivated Comments 04/07/2016 12:51 PM 04/07/2016 6:11 PM Date Activated Date Inactivated Comments 03/24/2016 7:53 AM 03/24/2016 2:13 PM Date Activated Date Inactivated Comments 03/31/2023 3:39 PM 04/03/2023 3:35 PM Question Answer Comments Documentation of decision pr ocess for this code status: Discussed with patient or surrogate. This is the code status chosen by the patient/surrogate. Date Activated Date Inactivated Comments 09/28/2024 1:46 PM Date Activated Date Inactivated Comments 08/05/2021 12:10 PM 08/05/2021 6:52 PM Date Activated Date Inactivated Comments 04/07/2016 12:51 PM 04/07/2016 6:11 PM Date Activated Date Inactivated Comments 03/24/2016 7:53 AM 03/24/2016 2:13 PM Date Activated Date Inactivated Comments 09/29/2024 7:59 PM 10/03/2024 6:17 PM Date Activated Date Inactivated Comments 09/29/2024 7:59 PM 10/03/2024 6:17 PM Reason for Referral Specialty Diagnoses / Procedures Referred By Contac t Referred To Contact Cardiology Diagnoses Preop testing Procedures EKG 12 Lead Prashant Hernandez, SAND CLEANING MACHINE OPERATOR - SKID WORKER [address] [facility] [address] [phone] Referral ID Status Reason Start Date Expiration Date Visits Re quested Visits Authorized [id number] Open 07/22/2021 07/22/2022 1 1 Specialty Diagnoses / Procedures Referred By Contac t Referred To Contact Radiology Diagnoses Spinal stenosis of lumbar region, unspecified whether neurogenic claudication present Procedures DOWNLOAD POWERSHARE IMAGES TO Geri Garay MD [address] [place] [address] [facility] [address] [place] [address] [place] [address] Referral ID Status Reason Start Date Expiration Date V isits Requested Visits Authorized [id number] Authorized 09/23/2022 09/23/2023 1 1 Specialty Diagnoses / Procedures Referred By Contac t Referred To Contact Radiology Diagnoses Myelopathy (HCC) Procedures MR NEURO IMAGE IMPORT(WHIT) DOWNLOAD POWERSHARE IMAGES TO Geri Garay MD [address] [place] [address] [facility] [address] [place] [address] [place] [address] Referral ID Status Reason Start Date Expiration Date Visits Re quested Visits Authorized [id number] Closed 10/26/2022 10/26/2023 1 1 Specialty Diagnoses / Procedures Referred By Contac t Referred To Contact Radiology Diagnoses Cervical spondylosis with myelopathy Procedures CT C-SPINE W/O CONTRAST Geri Vergara MD [address] [place] [address] [facility] [address] SCAN Referral ID Status Reason Start Date Expiration Date V isits Requested Visits Authorized [id number] Authorized 02/15/2023 02/15/2024 1 1 Referral ID Status Reason Start Date Expiration Date Visits Re quested Visits Authorized [id number] Closed 02/15/2023 02/15/2024 1 1 Specialty Diagnoses / Procedures Referred By Contac t Referred To Contact Radiology Diagnoses Cervical spondylosis with myelopathy Procedures XR C-SPINE FLEX/EXT ONLY 2 VIEWS Geri Vergara MD [address] [place] [address] [facility] [address] [place] [address] Referral ID Status Reason Start Date Expiration Date Visits Re quested Visits Authorized [id number] Closed 06/16/2023 06/15/2024 1 1 Referral ID Status Reason Start Date Expiration Date V isits Requested Visits Authorized [id number] Pending Review 09/15/2023 09/14/2024 1 1 Specialty Diagnoses / Procedures Referred By Contac t Referred To Contact Physical Therapy Diagnoses Acute hip pain, left Status post left hip replacement Procedures NH OFFICE/OUTPATIENT NEW HIGH MDM 60 MINUTES Jr. Keith Gabriel DO [address] [address] Referral ID Status Reason Start Date Expiration Date Visits Requested Visits Authorized [id number] Authorized Specialty Services Required 02/02/2024 07/31/2024 10 10 Summary Purpose Family History No Family History Records FoundNo Family History Records FoundNo Family History Records FoundNo Family History Records FoundNo Family History Records FoundNo Family History Records FoundNo Family History Records FoundNo Family History Records FoundNo Family History Records FoundNo Family History Records Found Additional Source Comments Care Teams (unrecognized sec tion and content) Preschool Teacher Relationship Specialty Start Date End Date Cooper Eller MD [address] [place] [address], [facility] [place] [address] PCP - General Internal Medicine 07/20/14 Preschool Teacher Relationship Specialty Start Date End Date Cooper Eller MD [address] [facility], [facility] [place], [place] [id number] PCP - General Internal Medicine 07/20/14 Preschool Teacher Relationship Specialty Start Date End Date Cooper Eller MD [address] [facility], [facility] [place] [address] PCP - General Internal Medicine 07/20/14 Preschool Teacher Relationship Specialty Start Date End Date Geri Vergara MD [address] [place] [address] Physician Orthopaedic Surgery 09/26/22 Preschool Teacher Relationship Specialty Start Date End Date Geri Vergara MD [address] [place] [address]69 Physician Orthopaedic Surgery 09/26/22 Preschool Teacher Relationship Specialty Start Date End Date Geri Vergara MD [address] [place] [address]483 Physician Orthopaedic Surgery 09/26/22 Preschool Teacher Relationship Specialty Start Date End Date Geri Vergara MD [address] [place] [address] 45565 Physician Orthopaedic Surgery 09/26/22 Preschool Teacher Relationship Specialty Start Date End Date Geri Vergara MD [address] [place] [address] 68398 Physician Orthopaedic Surgery 09/26/22 Preschool Teacher Relationship Specialty Start Date End Date Geri Vergara MD [address] [place] [address]12 Physician Orthopaedic Surgery 09/26/22 Preschool Teacher Relationship Specialty Start Date End Date Geri Vergara MD [address] [place] [address] 51140 Physician Orthopaedic Surgery 09/26/22 Preschool Teacher Relationship Specialty Start Date End Date Geri Vergara MD [address] [place] [address] 24323 Physician Orthopaedic Surgery 09/26/22 Preschool Teacher Relationship Specialty Start Date End Date Geri Vergara MD [address] [place] [address] 90762 Physician Orthopaedic Surgery 09/26/22 Preschool Teacher Relationship Specialty Start Date End Date Geri Vergara MD [address] [place] [address] Physician Orthopaedic Surgery 09/26/22 Preschool Teacher Relationship Specialty Start Date End Date Geri Vergara MD [address] [place] [address] 10498 Physician Orthopaedic Surgery 09/26/22 Preschool Teacher Relationship Specialty Start Date End Date Geri Vergara MD [address] [place] [address] 53717 Physician Orthopaedic Surgery 09/26/22 Preschool Teacher Relationship Specialty Start Date End Date Geri Vergara MD [address] [place] [address] 19289 Physician Orthopaedic Surgery 09/26/22 Preschool Teacher Relationship Specialty Start Date End Date Geri Vergara MD [address] [place] [address] 05661 Physician Orthopaedic Surgery 09/26/22 Dee Mireles APRN-SKID WORKER [address] [place] [address] [place] [address] WINDOWS ADMINISTRATOR Anesthesiology 03/27/23 Preschool Teacher Relationship Specialty Start Date End Date Geri Vergara MD [address] [place] [address] 21099 Physician Orthopaedic Surgery 09/26/22 Dee Mireles APRN-SKID WORKER [address] [place] [address] [place] [address] WINDOWS ADMINISTRATOR Anesthesiology 03/27/23 Preschool Teacher Relationship Specialty Start Date End Date Geri Vergara MD [address] [place] [address] 49518 Physician Orthopaedic Surgery 09/26/22 Dee Mireles APRN-SKID WORKER [address] [place] [address] [place] [address] WINDOWS ADMINISTRATOR Anesthesiology 03/27/23 Preschool Teacher Relationship Specialty Start Date End Date Geri Vergara MD [address] [place] [address] 72494 Physician Orthopaedic Surgery 09/26/22 Dee Mireles APRN-SKID WORKER [address] [place] [address] [place] [address] WINDOWS ADMINISTRATOR Anesthesiology 03/27/23 Preschool Teacher Relationship Specialty Start Date End Date Geri Vergara MD [address] [place] [address] 96908 Physician Orthopaedic Surgery 09/26/22 Dee Mireles APRN-SKID WORKER [address] [place] [address] [place] [address] WINDOWS ADMINISTRATOR Anesthesiology 03/27/23 Preschool Teacher Relationship Specialty Start Date End Date Geri Vergara MD [address] [place] [address] 99292 Physician Orthopaedic Surgery 09/26/22 Dee Mireles APRN-SKID WORKER [address] [place] [address] [place] [address] WINDOWS ADMINISTRATOR Anesthesiology 03/27/23 Preschool Teacher Relationship Specialty Start Date End Date Geri Vergara MD [address] [place] [address] Physician Orthopaedic Surgery 09/26/22 Dee Mireles APRN-SKID WORKER [address] [place] [address] [place] [address] WINDOWS ADMINISTRATOR Anesthesiology 03/27/23 Preschool Teacher Relationship Specialty Start Date End Date Cooper Eller MD [address] [place] [address] PCP - General Internal Medicine 11/23/22 Andrae Patino MD [address] [place] [address] Gastroenterology 11/23/22 Preschool Teacher Relationship Specialty Start Date End Date Cooper Eller MD [address] [place] [address] PCP - General 03/08/23 Preschool Teacher Relationship Specialty Start Date End Date Cooper Eller MD [address] [place], [place] [phone] PCP - General 03/08/23 Preschool Teacher Relationship Specialty Start Date End Date Cooper Eller MD [address] [place], [place] [phone] PCP - General 03/08/23 Preschool Teacher Relationship Specialty Start Date End Date Cooper Eller MD [address] [facility] [place], [place] [phone] PCP - General Internal Medicine 07/20/14 Preschool Teacher Relationship Specialty Start Date End Date Geri Vergara MD [address] [place] [address] Physician Orthopaedic Surgery 09/26/22 Dee Mireles, SAND CLEANING MACHINE OPERATOR-SKID WORKER [address] [place] [address] WINDOWS ADMINISTRATOR Anesthesiology 03/27/23 Preschool Teacher Relationship Specialty Start Date End Date Coopre Eller MD [address] [place], [place] [phone] PCP - General 03/08/23 Preschool Teacher Relationship Specialty Start Date End Date Cooper Eller MD [address] [place] [address] PCP - General 03/08/23 Preschool Teacher Relationship Specialty Start Date End Date Cooper Eller MD [address] [place] [address] PCP - General 03/08/23 Preschool Teacher Relationship Specialty Start Date End Date Cooper Eller MD [address] [place] [address] [id number] PCP - General 03/08/23 Preschool Teacher Relationship Specialty Start Date End Date Cooper Eller MD [address] [place] [id number] PCP - General Internal Medicine 11/23/22 Andrae Patino MD [address] [facility] [place] [address] Gastroenterology 11/23/22 Preschool Teacher Relationship Specialty Start Date End Date Cooper Eller MD [address] [place] [phone] PCP - General Internal Medicine 07/20/14 Preschool Teacher Relationship Specialty Start Date End Date Cooper Eller MD [address] [place] [address] [id number] PCP - General 03/08/23 Scheduled Active and Recently Administ ered Medications [...] in 24 hours., PACU only lidocaine-EPINEPHrine 2 percent-[id number] injection (CANCELED) PRN, Starting on Wed08/05/21 at 1449, Intra-op 1449 (Given - Provid er: Mj Alvarenga MD - Comment: injection to implant [...] = 20 mL/lumen, Pre-op (day of surgery) Scheduled Medication Order 09/18/2024 09/19/2024 09/20/2024 Flumazenil (ROMAZICON) injection 0.2 mg 0.2 mg, Intravenous, SEE ADMIN INSTRUCTIONS, Starting on Wed09/20/24 at 1053, Until Wed09/20/24 at 1452, Vial to bedside in procedure room. Administer ONLY UNDER THE DIRECTION OF PHYSICIAN. Reversal of Conscious Sedation Initial dose: 0.2 mg Repeat doses: 0.2 mg repeated at one-minute intervals Maximum total cumulative dose: 1mg, Intra-op/Intra-Proc lidocaine-epinephrine 2 %-1:[id number] injection 0-20 mL 0-20 mL, Infiltration, ONCE, 1 dose, On Wed09/20/24 at 1100, Subcutaneous injection as numbing agent., Intra-op/Intra-Proc 1100 (Canceled Entry - Provider: System Discharge - Comment: Automatically canceled at discontinue of medication order) Naloxone (NARCAN) injection 0.1 mg(Linked Group 1) 0.1 mg, Intravenous, SEE ADMIN INSTRUCTIONS, Starting on Wed09/20/24 at 1053, Until Wed09/20/24 at 1452, If RR </= 7 per min and difficult to arouse give naloxone 0.1 mg q 2 mins until RR > 8/min and/or drowsiness abates. Contact provider. If no response is noted after 4 doses, consider other causes of respiratory depression. Vial to bedside in procedure room. Administer ONLY UNDER THE DIRECTION OF PHYSICIAN to a maximum dose of 2mg., Intra-op/Intra-Proc Naloxone (NARCAN) injection 0.4 mg(Linked Group 1) 0.4 mg, Intravenous, SEE ADMIN INSTRUCTIONS, Starting on Wed09/20/24 at 1053, Until Wed09/20/24 at 1452, If patient APNEIC and difficult to arouse: Give naloxone 0.4 mg q2 minutes until RR> 8/min and call a 'code blue'. If no response is noted after 4 doses, consider other causes of respiratory depression. Vial to bedside in procedure room. Administer ONLY UNDER THE DIRECTION OF PHYSICIAN to a maximum dose of 2mg., Intra-op/Intra-Proc oxyCODONE (ROXICODONE) tablet 2.5 mg (COMPLETED) 2.5 mg, Oral, ONCE, 1 dose, On Wed09/20/24 at 1430 1400 (Given - Provid er: Kristen Stock RN) Prochlorperazine (COMPAZINE) injection 5 mg (COMPLETED) 5 mg, Intravenous, ONCE, 1 dose, On Wed09/20/24 at 1400, For IV route: dilute dose with 10mL normal saline and give by slow IV push at a rate of 5mg/min. Maximum of 40mg/day. 1333 (Given - Provid er: Moni Jha RN) PRN Medication Order 09/18/2024 09/19/2024 09/20/2024 fentaNYL (SUBLIMAZE) injection 0-300 mcg 0-300 mcg, Intravenous, Administer over 2 Minutes, ADMINISTER DIRECTED, Starting on Wed09/20/24 at 1053, Until Wed09/20/24 at 1452, intraoperative pain management, Administer during procedure as directed by physician. Recorded MAR dose is cumulative amount given during procedure., Intra-op/Intra-Proc 1134 (Given - Provid er: Smita Pyle RN)1141 (Given - Provider: Smita Pyle RN)1151 (Given - Provider: Smita Pyle RN)1203 (Given - Provider: Smita Pyle RN)1207 (Given - Provider: Smita Pyle RN) Iohexol (OMNIPAQUE) 300 MG/ML vial (COMPLETED) ONCE NEEDED, 1 dose, Starting on Wed09/20/24 at 1207, Until Wed09/20/24 at 1207, Intra-op/Intra-Proc 1207 (Given - Provid er: Jorge Serrano MD) Lidocaine 2 % injection (COMPLETED) ONCE NEEDED, 1 dose, Starting on Wed09/20/24 at 1150, Until Wed09/20/24 at 1150, Intra-op/Intra-Proc 1150 (Given - Provid er: Jorge Serrano MD) midazolam (VERSED) injection 0-10 mg 0-10 mg, Intravenous, ADMINISTER DIRECTED, Starting on Wed09/20/24 at 1053, Until Wed09/20/24 at 1452, Procedural sedation, Administer during procedure as directed by physician. Recorded MAR dose is cumulative amount given during procedure., Intra-op/Intra-Proc 1134 (Given - Provid er: Smita Pyle RN)1141 (Given - Provider: Smita Pyle RN)1151 (Given - Provider: Smita Pyle, RN)1203 (Given - Provider: Smita Pyle, AUR[place]A)1207 (Given - Provider: Smita Pyle RN) Ondansetron 4mg/2ml (ZOFRAN) injection 4 mg (COMPLETED) 4 mg, Intravenous, ONCE NEEDED, 1 dose, Starting on Wed09/20/24 at 1053, Until Wed09/20/24 at 1225, Nausea, Intra-op/Intra-Proc 1225 (Given - Provid er: Christina Skaggs RN) Linked Groups Order Group 1: Naloxone (NARCAN) injection 0.1 mgJump to med 0.1 mg, Intravenous, SEE ADMIN INSTRUCTIONS, Starting on Wed09/20/24 at 1053, Until Wed09/20/24 at 1452, If RR </= 7 per min and difficult to arouse give naloxone 0.1 mg q 2 mins until RR > 8/min and/or drowsiness abates. Contact provider. If no response is noted after 4 doses, consider other causes of respiratory depression. Vial to bedside in procedure room. Administer ONLY UNDER THE DIRECTION OF PHYSICIAN to a maximum dose of 2mg., Intra-op/Intra-Proc Or Naloxone (NARCAN) injection 0.4 mgJump to med 0.4 mg, Intravenous, SEE ADMIN INSTRUCTIONS, Starting on Wed09/20/24 at 1053, Until Wed09/20/24 at 1452, If patient APNEIC and difficult to arouse: Give naloxone 0.4 mg q2 minutes until RR> 8/min and call a 'code blue'. If no response is noted after 4 doses, consider other causes of respiratory depression. Vial to bedside in procedure room. Administer ONLY UNDER THE DIRECTION OF PHYSICIAN to a maximum dose of 2mg., Intra-op/Intra-Proc Scheduled Medication Order 09/27/2024 09/28/2024 09/29/2024 carvedilol (COREG) tablet 25 mg 25 mg, Oral, 2 TIMES DAILY, First dose on Renee 09/28/24 at 1445, Until Discontinued, Administer with food to minimize the risk of orthostatic hypotension, On hold since Wed09/29/2024 at 0649 until manually unheld 152 (Not Given - Provider: Ronel Jackson RN - Reason: Pt NPO)211 (Given - Provider: Zaida Moya RN) 0649 (Held by provider - Provider: WM Hopper CNP - Reason: Other)0900 (Automatically Held - Provider: WM Hopper CNP)2100 (Automatically Held - Provider: WM Hopper CNP) cycloSPORINE (RESTASIS) 0.05 % ophthalmic emulsion 1 drop (Patient Supplied) 1 drop, Ophthalmic, 2 TIMES DAILY RESP, First dose (after last reorder) on Wed09/28/24 at 2200, Until Discontinued, Please select a reason the therapeutic interchange was not accepted: Okay for Pharmacy to Substitute 2150 (Given - Provider: Dana Fajardo RN) 09 (Given - Provider: Valorie Coronado RN)1999 (Due) levothyroxine (SYNTHROID) tablet 100 mcg 100 mcg, Oral, DAILY, First dose on Renee 09/28/24 at 1500, Until Discontinued, Tube feeding (TF) interaction, obtain physician order to manage, recommend holding TF for 30 minutes before and after dose. 1528 (Not Given - Provider: Ronel Jackson RN - Reason: Pt NPO) 0626 (Not Given - Provider: Valorie Coronado RN - Reason: Pt NPO) lidocaine 1 % injection 50 mg 50 mg, IntraDERmal, ONCE, 1 dose, On Wed09/29/24 at 1100 1121 (Not Given - Provider: Valorie Coronado RN - Reason: Other - Comment: access provides own medication) lidocaine 1 % injection 50 mg 50 mg, IntraDERmal, ONCE, 1 dose, On Wed09/29/24 at 1345 1434 (Canceled Entry - Provider: Valorie Coronado RN - Comment: [facility] provides own meds) meropenem (MERREM) 1,000 mg in sodium chloride 0.9 % 100 mL IVPB ([id number]) (COMPLETED)(Linked Group 1) 1,000 mg, IntraVENous, ONCE, 1 dose, On Renee 09/28/24 at 1415, Antimicrobial Indications: Intra-Abdominal Infection, Use 20mm (Blue) [id number] Adapter Preparation instructions: Attach medication vial to one 20mm (Blue) [id number] adapter. Cayetano fluid bag with adapter, mix, and administer per order. 1634 (New Bag - Provider: Ronel Jackson RN)1704 (Stopped - Provider: Ronel Jackson RN) polyvinyl alcohol-povidone 5-6 MG/ML opthalmic solution 1 drop (CANCELED) 1 drop, Both Eyes, 2 TIMES DAILY, First dose on Wed09/28/24 at 2100, Until Discontinued, Substituted for cycloSPORINE (RESTASIS). 2116 (Given - Provider: Zaida Moya RN) sodium chloride 0.9 % bolus 1,000 mL (COMPLETED) 1,000 mL (14.4 mL/kg), IntraVENous, at 983.6 mL/hr, Administer over 61 Minutes, ONCE, On Wed09/28/24 at 1500, For 1 dose 1547 (New Bag - Provider: Ronel Jackson RN)1726 (Stopped - Provider: Ronel Jackson RN) sodium chloride 0.9 % bolus 1,000 mL (COMPLETED) 1,000 mL (14.2 mL/kg), IntraVENous, at 495.9 mL/hr, Administer over 121 Minutes, ONCE, On Wed09/29/24 at 0400, For 1 dose 0350 (New Bag - Provider: Zaida Moya RN)0506 (Stopped - Provider: Eloisa Olguin RN) sodium chloride flush 0.9 % injection 5-40 mL 5-40 mL, IntraVENous, EVERY 12 HOURS SCHEDULED (2 times per day), First dose on Wed09/28/24 at 2100, Until Discontinued, For Line Patency: Peripheral IV = 5 [...] mL Midline or Central Line = 20 mL/lumen 2100 (Not Given - Provider: Dana Fajardo RN - Reason: IV Fluid Infusing) 0749 (Not Given - Provider: Valorie Coronado RN - Reason: IV Fluid Infusing)2100 (Due) sodium chloride flush 0.9 % injection 5-40 mL 5-40 mL, IntraVENous, EVERY 12 HOURS SCHEDULED (2 times per day), First dose on Wed09/29/24 at 1100, Until Discontinued, For Line Patency: Peripheral IV = 5 [...] mL Midline or Central Line = 20 mL/lumen 1121 (Not Given - Provider: Valorie Coronado RN - Reason: IV Fluid Infusing)2100 (Due) sodium chloride flush 0.9 % injection 5-40 mL 5-40 mL, IntraVENous, EVERY 12 HOURS SCHEDULED (2 times per day), First dose on Wed09/29/24 at 2100, Until Discontinued, For Line Patency: Peripheral IV = 5 [...] mL Midline or Central Line = 20 mL/lumen 2100 (Due) ursodiol (ACTIGALL) tablet 500 mg (Patient Supplied) 500 mg, Oral, 2 TIMES DAILY, First dose on Wed09/28/24 at 2100, Until Discontinued, We do not have this medication in stock, and there is no direct substitute, or substitute was declined. The medication is marked patient supplied, however if the patient cannot provide their own medication then contact the prescriber for an alternative. 2115 (Not Given - Provider: Zaida Moya RN - Reason: Medication not available) 0749 (Not Given - Provider: Valorie Coronado RN - Reason: Medication not available)2100 (Due) Continuous Medication Order 09/27/2024 09/28/2024 09/29/2024 0.9 % sodium chloride infusion (CANCELED) IntraVENous, at 125 mL/hr, CONTINUOUS, Starting on Renee 09/28/24 at 1415, For 48 hours, Maintenance IV fluid order, if a bolus IV fluid order is present, begin this order after the bolus is complete. 1713 (New Bag - Provider: Ronel Jackson, RN) 0121 (New Bag - Provider: Zaida Moya, AURORA)0639 (Stopped - Provider: Valorie Coronado, AURORA) 0.9 % sodium chloride infusion IntraVENous, at 125 mL/hr, CONTINUOUS, Starting on Wed09/29/24 at 0630, For 33 hours, Maintenance IV fluid order, if a bolus IV fluid order is present, begin this order after the bolus is complete. 0640 (New Bag - Provider: Valorie Coronado, AURORA)1008 (Rate/Dose Change - Provider: Valorie Coronado RN)1338 (New Bag - Provider: Valorie Coronado, AURORA) norepinephrine (LEVOPHED) 16 mg in sodium chloride 0.9 % 250 mL infusion (premix) 1-100 mcg/min (0.9375-93.75 mL/hr, rounded to 0.9-93.8 mL/hr), IntraVENous, CONTINUOUS, Starting on Wed09/29/24 at 1100, Until Discontinued, Titrate Infusion? Yes, Initial Infusion Dose: 5 mcg/min, Goal of Therapy is: MAP greater than 65 mmHg, Contact Provider if: Patient is receiving the maximum dose and is not achieving the goal of therapy, Vascular access recommendations: - Step 1: Is the concentration GREATER than 16mg/250mL? >Yes - REQUIRES A central line >No - Proceed to step 2 -Step 2: Concentrations LESS THAN OR EQUAL TO 16mg/250mL, central line preferred, may administer through a peripheral intraVENous catheter for emergent situations (in anticipation of central line placement) or for a short duration (less than 48 hours) if placed in a large vein, at a proximal site. If available, refer to site specific guidance for additional administration requirements/instructions. If Titrate Infusion? is No : Disregard instructions below. If Titrate infusion? is Yes : If rate LESS than 10 mcg/min: Titrate by 2 mcg/min no faster than every 5 minutes to goal. If rate GREATER than or equal to 10 mcg/min: Titrate by 5 mcg/min no faster than every 5 minutes to goal. When approaching therapeutic goal or weaning off, smaller titration increments of 1 mcg/min no faster than every 5 minutes may be used to maintain goal. If patient is not at goal for >15 minutes, titrate infusion by 10 mcg/min every 2 minutes for a max of 10 minutes and contact the provider for further instructions/orders. Restarting the infusion: If the infusion has been stopped for less than or equal to 30 minutes, resume at previous dose. If the infusion has been stopped for greater than 30 minutes, resume at initial starting dose in order. 1100 (Due) pantoprazole (PROTONIX) 80 mg in sodium chloride 0.9 % 100 mL infusion 8 mg/hr (10 mL/hr), IntraVENous, CONTINUOUS, Starting on Renee 09/28/24 at 1415, Until Discontinued 1714 (New Bag - Provider: Ronel Jackson, RN) 0328 (New Bag - Provider: Zaida Moya, AURORA)1339 (New Bag - Provider: Valorie Coronado, AURORA) PRN Medication Order 09/27/2024 09/28/2024 09/29/2024 0.9 % sodium chloride infusion IntraVENous, at 5-250 mL/hr, PRN, if patient receiving piggyback infusions and maintenance fluids are not ordered, Starting on Renee 09/28/24 at 1340, For piggyback infusion, administer at same rate as piggyback for a total of 25 mL. Enter 25 mL into dose field and piggyback rate into rate field of order. If piggyback is infusing at a rate less than 100 mL/hr, enter 25 mL into dose field and 100 mL/hr into rate field of order. 0.9 % sodium chloride infusion IntraVENous, at 240 mL/hr, Administer over 10 Minutes, PRN, blood administration, Starting on Renee 09/28/24 at 1437, For 1 dose, For use in priming line prior to transfusion (prime via gravity) and flush line post transfusion ONLY. Discontinue once line has been cleared of remaining blood product. 0.9 % sodium chloride infusion IntraVENous, at 240 mL/hr, Administer over 10 Minutes, PRN, blood administration, Starting on Wed09/29/24 at 0420, For 1 dose, For use in priming line prior to transfusion (prime via gravity) and flush line post transfusion ONLY. Discontinue once line has been cleared of remaining blood product. 0.9 % sodium chloride infusion IntraVENous, at 240 mL/hr, Administer over 10 Minutes, PRN, blood administration, Starting on Wed09/29/24 at 1025, For 1 dose, For use in priming line prior to transfusion (prime via gravity) and flush line post transfusion ONLY. Discontinue once line has been cleared of remaining blood product. 0.9 % sodium chloride infusion IntraVENous, at 5-250 mL/hr, PRN, if patient receiving piggyback infusions and maintenance fluids are not ordered, Starting on Wed09/29/24 at 1038, For piggyback infusion, administer at same rate as piggyback for a total of 25 mL. Enter 25 mL into dose field and piggyback rate into rate field of order. If piggyback is infusing at a rate less than 100 mL/hr, enter 25 mL into dose field and 100 mL/hr into rate field of order. 0.9 % sodium chloride infusion IntraVENous, at 5-250 mL/hr, PRN, if patient receiving piggyback infusions and maintenance fluids are not ordered, Starting on Wed09/29/24 at 1324, For piggyback infusion, administer at same rate as piggyback for a total of 25 mL. Enter 25 mL into dose field and piggyback rate into rate field of order. If piggyback is infusing at a rate less than 100 mL/hr, enter 25 mL into dose field and 100 mL/hr into rate field of order. ALTEplase (CATHFLO) injection 2 mg 2 mg, IntraCATHeter, PRN, Starting on Wed09/29/24 at 1038, Until Discontinued, for PICC occlusion., Dilute with 2.2 mL of sterile water to final concentration of 1 mg/mL. Instill 2 mg alteplase in each occluded lumen. After 30 minutes of dwell time, assess patency. If still occluded, reassess after a total of 120 minutes of dwell time. If still occluded after 120 minutes, obtain new vials of alteplase and sterile water. Dilute and instill a second 2 mg dose per occluded lumen and assess patency as outlined above. Once patency is restored, aspirate 5 mL of blood to remove alteplase and residual clot then flush with 10 mL normal saline. fentaNYL (SUBLIMAZE) injection 25 mcg (CANCELED) 25 mcg, IntraVENous, EVERY 2 HOURS PRN, Starting on Renee 09/28/24 at 1357, Until Wed09/29/24 at 0603, Pain Severe (7-10), If oral and IV narcotics ordered, use oral first and only use IV if oral is ineffective or cannot take oral. Do Not give oral and IV within 1 hour of each other unless specifically ordered. 1450 (Given - Provider: Swati Schmidt RN) HYDROmorphone HCl PF (DILAUDID) injection 0.25 mg(Linked Group 2) 0.25 mg, IntraVENous, EVERY 3 HOURS PRN, Starting on Renee 09/28/24 at 1554, Until Discontinued, Pain Moderate (4-6), allowed for higher pain score per patient request, If oral and IV narcotics ordered, use oral first and only use IV if oral is ineffective or cannot take oral. Do Not give oral and IV within 1 hour of each other unless specifically ordered. 1558 (See Alternative - Provider: Swati Schmidt RN)1928 (Given - Provider: Zaida Moya, AURORA) HYDROmorphone HCl PF (DILAUDID) injection 0.5 mg(Linked Group 2) 0.5 mg, IntraVENous, EVERY 3 HOURS PRN, Starting on Renee 09/28/24 at 1554, Until Discontinued, Pain Severe (7-10), If oral and IV narcotics ordered, use oral first and only use IV if oral is ineffective or cannot take oral. Do Not give oral and IV within 1 hour of each other unless specifically ordered. 1558 (Given - Provider: Swati Schmidt RN)1928 (See Alternative - Provider: Zaida Moya, AURORA) iopamidol (ISOVUE-370) 76 % injection 100 mL (COMPLETED) 100 mL, IntraVENous, IMG ONCE PRN, 1 dose, Starting on Renee 09/28/24 at 1458, Until Renee 09/28/24 at 1504, Other 1504 (Given - Provider: Valerie Coughlin) ondansetron (ZOFRAN) injection 4 mg 4 mg, IntraVENous, EVERY 6 HOURS PRN, Starting on Renee 09/28/24 at 1400, Until Discontinued, Nausea, Vomiting 1447 (Given - Provider: Swati Schmidt RN) sodium chloride flush 0.9 % injection 5-40 mL 5-40 mL, IntraVENous, PRN, Starting on Renee 09/28/24 at 1340, Until Discontinued, Line Care, After every IV line use, For Line Patency: Peripheral IV = 5 [...] mL Midline or Central Line = 20 mL/lumen sodium chloride flush 0.9 % injection 5-40 mL 5-40 mL, IntraVENous, PRN, Starting on Wed09/29/24 at 1038, Until Discontinued, Line Care, After every IV line use, For Line Patency: Peripheral IV = 5 [...] mL Midline or Central Line = 20 mL/lumen sodium chloride flush 0.9 % injection 5-40 mL 5-40 mL, IntraVENous, PRN, Starting on Wed09/29/24 at 1324, Until Discontinued, Line Care, After every IV line use, For Line Patency: Peripheral IV = 5 [...] mL Midline or Central Line = 20 mL/lumen technetium mebrofenin (CHOLETEC) injection 5 millicurie (COMPLETED) 5 millicurie, IntraVENous, IMG ONCE PRN, 1 dose, Starting on Wed09/29/24 at 1254, Until Wed09/29/24 at 1333, Other 1333 (Given - Provid er: Moe Trevino) Linked Groups Order Group 1: meropenem (MERREM) 1,000 mg in sodium chloride 0.9 % 100 mL IVPB ([id number]) (COMPLETED)Jump to med 1,000 mg, IntraVENous, ONCE, 1 dose, On Renee 09/28/24 at 1415, Antimicrobial Indications: Intra-Abdominal Infection, Use 20mm (Blue) [id number] Adapter Preparation instructions: Attach medication vial to one 20mm (Blue) [id number] adapter. Cayetano fluid bag with adapter, mix, and administer per order. Followed by meropenem (MERREM) 1,000 mg in sodium chloride 0.9 % 100 mL IVPB ([id number]) (CANCELED) 1,000 mg, IntraVENous, at 33.3 mL/hr, Administer over 180 Minutes, EVERY 8 HOURS, First dose on Renee 09/28/24 at 2200, Use 20mm (Blue) [id number] Adapter Preparation instructions: Attach medication vial to one 20mm (Blue) [id number] adapter. Cayetano fluid bag with adapter, mix, and administer per order. Group 2: HYDROmorphone HCl PF (DILAUDID) injection 0.25 mgJump to med 0.25 mg, IntraVENous, EVERY 3 HOURS PRN, Starting on Renee 09/28/24 at 1554, Until Discontinued, Pain Moderate (4-6), allowed for higher pain score per patient request, If oral and IV narcotics ordered, use oral first and only use IV if oral is ineffective or cannot take oral. Do Not give oral and IV within 1 hour of each other unless specifically ordered. Or HYDROmorphone HCl PF (DILAUDID) injection 0.5 mgJump to med 0.5 mg, IntraVENous, EVERY 3 HOURS PRN, Starting on Renee 09/28/24 at 1554, Until Discontinued, Pain Severe (7-10), If oral and IV narcotics ordered, use oral first and only use IV if oral is ineffective or cannot take oral. Do Not give oral and IV within 1 hour of each other unless specifically ordered. Scheduled Medication Order 10/01/2024 10/02/2024 10/03/2024 ferrous sulfate tablet 325 mg 325 mg, oral, Daily with breakfast, First dose on Wed10/03/24 at 0800, Give ferrous sulfate 2 hours before or 4 hours after antacids. 1000 (Given - Provider: Madeleine Espinoza, [place]) insulin lispro (HumaLOG) injection 1-4 Units 1-4 Units, subcutaneous, Nightly, First dose on Wed10/02/24 at 2200, Bedtime hyperglycemia dosing. For blood glucose 201-250 mg/dL, give 1 unit. For blood glucose 251-300 mg/dL, give 2 units. For blood glucose 301-350 mg/dL, give 3 units. For blood glucose 351-400 mg/dL, give 4 units. Give even if NPO or meals skipped. Do NOT give more often than every 4 hours when NPO. Notify prescriber if blood glucose greater than 400 mg/dL. Look-alike/sound-alike medication - verify indication for use. Prime with 2 units of insulin prior to administration. Prandial/supplemental Insulin. Pre-filled pens stable 28 days at room temperature. Insulin lispro should be administered within 15 minutes before or immediately after a meal. 2236 (Given - Provider: Daron Brush RN - Comment: BG 202) insulin lispro (HumaLOG) injection 1-5 Units 1-5 Units, subcutaneous, 3 times daily with meals, First dose on Wed10/02/24 at 1730, Daytime hyperglycemia dosing. For blood glucose 151-200 mg/dL, give 1 unit. For blood glucose 201-250 mg/dL, give 2 units. For blood glucose 251-300 mg/dL, give 3 units. For blood glucose 301-350 mg/dL, give 4 units. For blood glucose 351-400 mg/dL, give 5 units. Give even if NPO or meals skipped. Do NOT give more often than every 4 hours when NPO. Notify prescriber if blood glucose greater than 400 mg/dL. Look-alike/sound-alike medication - verify indication for use. Prime with 2 units of insulin prior to administration. Prandial/supplemental Insulin. Pre-filled pens stable 28 days at room temperature. Insulin lispro should be administered within 15 minutes before or immediately after a meal. 1730 (Not Given - Provider: Sherie Maldonado RN - Reason: Order parameters not met) 0828 (Given - Provider: Madeleine Espinoza, [place]UR[place]A - Comment: bs [phone] (Given - Provider: Madeleine Epsinoza RN - Comment: bs 204) levothyroxine (SYNTHROID, LEVOTHROID) tablet 100 mcg 100 mcg, oral, Daily, First dose on Wed10/01/24 at 1000, Look-alike/sound-alike medication. Verify indication for use Administer on empty stomach at least ONE hour before or TWO hours after food Enteral Feeding: For 7 days or less of tube feeding- do NOT hold tube feedings, after 7 days- hold tube feedings ONE hour before and ONE hour after administration DOES NOT APPLY TO NEONATES Monitor thyroid function tests weekly 1049 (Given - Provider: Deidre Payne RN) 0559 (Given - Provider: Teresa Rojo, AUR[place]A)1243 (MAR Hold - Provider: Automatic Transfer Provider - Reason: Patient not available)1517 (MAR Unhold - Provider: Automatic Transfer Provider) 0557 (Given - Provider: Daron Brush, RN) loratadine (CLARITIN) tablet 10 mg 10 mg, oral, Daily, First dose on Wed10/02/24 at 1715, Look-alike/sound-alike medication - verify indication for use. 1755 (Given - Provider: Sherie Maldonado RN) 0819 (Given - Provider: Madeleine Espinoza RN) pantoprazole (PROTONIX) injection 40 mg 40 mg, intravenous, Every 12 hours, First dose on Wed09/29/24 at 2000, Look-alike/sound-alike medication - verify indication for use., Indication: Upper GI bleed 0818 (Given - Provider: Chana Beauchamp RN)1931 (Given - Provider: Teresa Rojo, AURORA) 0728 (Given - Provider: Sherie Maldonado RN)1243 (MAR Hold - Provider: Automatic Transfer Provider - Reason: Patient not available)1517 (MAR Unhold - Provider: Automatic Transfer Provider)2026 (Given - Provider: Daron Brush RN) 0820 (Given - Provider: Madeleine Espinoza RN) sodium chloride 0.9 % flush 10 mL(Linked Group 1) 10 mL, intravenous, Every 8 hours, First dose on Wed09/30/24 at 1445, Short-term Central Line. IVP to lumens. 0304 (Given - Provider: Christina Adams RN)1445 (Given - Provider: Chana Beauchamp RN)2245 (Canceled Entry - Provider: Teresa Rojo, AURORA) 0645 (Canceled Entry - Provider: Teresa Rojo, RN)1243 (MAR Hold - Provider: Automatic Transfer Provider - Reason: Patient not available)1300 (Not Given - Provider: Sherie Maldonado RN - Reason: Other - Comment: pt not on floor)1517 (MAR Unhold - Provider: Automatic Transfer Provider)2241 (Given - Provider: Daron Brush RN) 0557 (Given - Provider: Daron Brush RN)1445 (Not Given - Provider: Madeleine Espinoza RN - Reason: Other - Comment: picc removed) ursodioL (MIHAI FORTE) tablet 500 mg 500 mg, oral, 2 times daily, First dose on Wed10/02/24 at 2100 2025 (Given - Provider: Daron Brush, RN) 0818 (Given - Provider: Madeleine Espinoza, RN) Continuous Medication Order 10/01/2024 10/02/2024 10/03/2024 sodium chloride 0.9 % infusion () 75 mL/hr, intravenous, Continuous, Starting on Wed09/29/24 at 2015, For 1 day 0317 (Rate/Dose Verify - Provider: Christina Adams RN)0400 (Stop Bag - Provider: Christina Adams RN) PRN Medication Order 10/01/2024 10/02/2024 10/03/2024 artificial tears(hypromellose) (ISOPTO TEARS) 0.5 % ophthalmic solution 2 drop 2 drop, both eyes, As needed, dry eyes, Starting on Wed10/02/24 at 1712 calcium gluconate 3,000 mg in sodium chloride 0.9 % 100 mL IVPB(Linked Group 2) 3,000 mg, intravenous, at 130 mL/hr, Administer over 60 Minutes, As needed, for ionized calcium level less than 3 mg/dL, Starting on Wed09/29/24 at 1955, CALL PHYSICIAN if this dose is administered. Recheck ionized calcium 6 hours after infusion. Hold calcium replacement for phosphorus greater than 5.5 mg/dL. VESICANT (RED) 1243 ([facility] Hold - Provider: Automatic Transfer Provider - Reason: Patient not available)151 ([facility] Unhold - Provider: Automatic Transfer Provider) calcium gluconate IVPB 1000 mg/50 mL (20 mg/mL premix)(Linked Group 2) 1,000 mg, intravenous, at 50 mL/hr, Administer over 60 Minutes, As needed, for ionized calcium level 3.5 to 4.4 mg/dL, Starting on Wed09/29/24 at 1955, Recheck ionized calcium 6 hours after infusion. Hold calcium replacement for phosphorus greater than 5.5 mg/dL. VESICANT (RED) 1243 ([facility] Hold - Provider: Automatic Transfer Provider - Reason: Patient not available)151 ([facility] Unhold - Provider: Automatic Transfer Provider) calcium gluconate IVPB 2000 mg/100 mL (20 mg/mL premix)(Linked Group 2) 2,000 mg, intravenous, at 100 mL/hr, Administer over 60 Minutes, As needed, for ionized calcium level 3 to 3.4 mg/dL, Starting on Wed09/29/24 at 1955, Recheck ionized calcium 6 hours after infusion. Hold calcium replacement for phosphorus greater than 5.5 mg/dL. VESICANT (RED) 1243 ([facility] Hold - Provider: Automatic Transfer Provider - Reason: Patient not available)151 ([facility] Unhold - Provider: Automatic Transfer Provider) dextrose (GLUTOSE) 40 % gel 15 g 15 g, oral, As needed, low blood sugar, blood glucose less than 70 mg/dL, Starting on Wed09/29/24 at 1955, If patient conscious and taking PO. If blood glucose is not greater than 70 mg/dL after initial treatment, repeat treatment. 1243 ([facility] Hold - Provider: Automatic Transfer Provider - Reason: Patient not available)1517 ([facility] Unhold - Provider: Automatic Transfer Provider) dextrose 50 % in water (D50W) 50% solution 25 mL 25 mL, intravenous, As needed, low blood sugar, blood glucose less than 70 mg/dL and unconscious or NPO with IV access, Starting on Wed09/29/24 at 1955, Push over 1-3 minutes STAT. If conscious and not NPO, immediately follow with meal tray or high protein (7 grams) snack if tray not available. If NPO, initiate 5% dextrose in water at 100 mL/hr and contact prescriber for additional orders. If blood glucose is not greater than 70 mg/dL after initial treatment, repeat treatment. VESICANT (RED) Warning: HYPERTONIC solution. 1243 ([facility] Hold - Provider: Automatic Transfer Provider - Reason: Patient not available)1517 ([facility] Unhold - Provider: Automatic Transfer Provider) fentaNYL (SUBLIMAZE) injection 25 mcg(Linked Group 3) 25 mcg, intravenous, Every 2 hour PRN, for mild to moderate pain, Starting on Wed09/29/24 at 2002, Look-alike/sound-alike medication - verify indication for use. 1243 ([facility] Hold - Provider: Automatic Transfer Provider - Reason: Patient not available)1517 ([facility] Unhold - Provider: Automatic Transfer Provider) fentaNYL (SUBLIMAZE) injection 50 mcg(Linked Group 3) 50 mcg, intravenous, Every 2 hour PRN, for severe pain, Starting on Wed09/29/24 at 2002, Look-alike/sound-alike medication - verify indication for use. 1243 ([facility] Hold - Provider: Automatic Transfer Provider - Reason: Patient not available)1517 ([facility] Unhold - Provider: Automatic Transfer Provider) glucagon HCL injection 1 mg 1 mg, intramuscular, As needed, low blood sugar, blood glucose less than 70 mg/dL and unconscious or NPO without IV access., Starting on Wed09/29/24 at 1955, If conscious and not NPO, immediately follow with meal tray or high protein (7Grams) snack if tray not available. If NPO, initiate IV 5% Dextrose/Water at 100 mL/hr and contact prescriber for additional orders. If blood glucose is not greater than 70 mg/dL after initial treatment, repeat treatment. 1243 ([facility] Hold - Provider: Automatic Transfer Provider - Reason: Patient not available)1517 ([facility] Unhold - Provider: Automatic Transfer Provider) hydrALAZINE (APRESOLINE) injection 10 mg 10 mg, intravenous, Every 6 hours PRN, high blood pressure, Starting on Wed10/01/24 at 0940, For systolic blood pressure greater than 160 mmHg Look-alike/sound-alike medication - verify indication for use. Administer IV doses as a slow IV push; maximum rate: 5 mg/minute. 0927 (Given - Provider: Sherie Maldonado RN)1243 ([facility] Hold - Provider: Automatic Transfer Provider - Reason: Patient not available)1517 ([facility] Unhold - Provider: Automatic Transfer Provider) magnesium sulfate IVPB 2000 mg/50 mL in iso-osmotic water (40 mg/mL premix)(Linked Group 4) 2,000 mg, intravenous, at 25 mL/hr, Administer over 120 Minutes, As needed, for magnesium level 1.7 to 1.9 mg/dL or ionized magnesium level 0.45 to 0.5 mmol/L, Starting on Wed09/29/24 at 1955, Use premix solution. Default to ionized magnesium level in cases where patient has both magnesium and ionized magnesium results. If administered, check ionized magnesium (or total magnesium if ionized magnesium unavailable) level 4 hours after infusion. 0401 (New Bag - Provider: Christina Adams RN)0600 (Rate/Dose Verify - Provider: Christina Adams RN)0605 (Stop Bag - Provider: Christina Adams RN) 0349 (New Bag - Provider: Teresa Rojo RN)0549 (Stop Bag - Provider: Teresa Rojo, AURORA)1243 ([facility] Hold - Provider: Automatic Transfer Provider - Reason: Patient not available)1517 ([facility] Unhold - Provider: Automatic Transfer Provider) magnesium sulfate IVPB 4000 mg/100 mL in iso-osmotic water (40 mg/mL premix)(Linked Group 4) 4,000 mg, intravenous, at 25 mL/hr, Administer over 240 Minutes, As needed, for magnesium level 1.6 mg/mL or less, or ionized magnesium level 0.44 mmol/L or less, Starting on Wed09/29/24 at 1955, Use premix solution. Default to ionized magnesium level in cases where patient has both magnesium and ionized magnesium results. If administered, check ionized magnesium (or total magnesium if ionized magnesium unavailable) level 4 hours after infusion. 0401 (See Alternative - Provider: Christina Adams RN)0600 (See Alternative - Provider: Christina Adams RN)0605 (See Alternative - Provider: Christina Adams RN) 0349 (See Alternative - Provider: Teresa Rojo RN)0549 (See Alternative - Provider: Teresa Rojo RN)1243 ([facility] Hold - Provider: Automatic Transfer Provider - Reason: Patient not available)1517 ([facility] Unhold - Provider: Automatic Transfer Provider) potassium chloride (K-TAB,KLOR-CON) CR tablet 20-40 mEq(Linked Group 5) 20-40 mEq, oral, As needed, for potassium replacement, Starting on Wed09/29/24 at 1955, Progress to oral potassium replacement when patient tolerating oral intake. If dose administered, recheck potassium level 4 hours after last dose. For potassium level 3.4 to 3.8 mmol/L and Serum Creatinine 1.2 or less=30 mEq. For potassium level 3.1 to 3.3 mmol/L and Serum Creatinine 1.2 or less=40 mEq. For potassium level 3 mmol/L or less and Serum Creatinine 1.2 or less=50 mEq. For potassium level 3.4 to 3.8 mmol/L and Serum Creatinine greater than 1.2=20 mEq. For potassium level 3.1 to 3.3 mmol/L and Serum Creatinine greater than 1.2=30 mEq. For potassium level 3 mmol/L or less and Serum Creatinine greater than 1.2=40 mEq. Do not crush or chew. 1243 ([facility] Hold - Provider: Automatic Transfer Provider - Reason: Patient not available)1517 ([facility] Unhold - Provider: Automatic Transfer Provider) potassium chloride (KAYCIEL) 20 mEq/15 mL solution 20-40 mEq(Linked Group 5) 20-40 mEq, oral, As needed, potassium replacement, Starting on Wed09/29/24 at 1955, Progress to oral potassium replacement when patient tolerating oral intake. If dose administered, recheck potassium level 4 hours after last dose. For potassium level 3.4 to 3.8 mmol/L and Serum Creatinine 1.2 or less=30 mEq (22.5mL). For potassium level 3.1 to 3.3 mmol/L and Serum Creatinine 1.2 or less=40 mEq (30mL). For potassium level 3 mmol/L or less and Serum Creatinine 1.2 or less=50 mEq (37.5mL). For potassium level 3.4 to 3.8 mmol/L and Serum Creatinine greater than 1.2=20 mEq (15mL). For potassium level 3.1 to 3.3 mmol/L and Serum Creatinine greater than 1.2=30 mEq (22.5mL). For potassium level 3 mmol/L or less and Serum Creatinine greater than 1.2=40 mEq (30mL). Must dilute before use - Mix in 3-8 ounces of water or juice before administration When administering in feeding tube, flush before and after per policy and monitor potassium levels 1243 ([facility] Hold - Provider: Automatic Transfer Provider - Reason: Patient not available)1517 ([facility] Unhold - Provider: Automatic Transfer Provider) potassium chloride IVPB 10 mEq/100 mL in water (0.1 mEq/mL premix)(Linked Group 6) 10 mEq, intravenous, at 100 mL/hr, Administer over 60 Minutes, As needed, for potassium replacement, Starting on Wed09/29/24 at 1954, Administer Potassium Chloride IVPB in 10 mEq increments. Maximum infusion rates: Central Line = 20 mEq/hour; Peripheral Line = 10 mEq/hour (10 mEq/100 mL). If dose administered, recheck potassium level 1 hour after infusion complete. For potassium level 3.4 to 3.8 mmol/L and Serum Creatinine 1.2 or less = 30 mEq For potassium level 3.1 to 3.3 mmol/L and Serum Creatinine 1.2 or less = 40 mEq For potassium level 3 mmol/L or less and Serum Creatinine 1.2 or less = 50 mEq For potassium level 3.4 to 3.8 mmol/L and Serum Creatinine greater than 1.2 = 20 mEq For potassium level 3.1 to 3.3 mmol/L and Serum Creatinine greater than 1.2 = 30 mEq For potassium level 3 mmol/L or less and Serum Creatinine greater than 1.2 = 40 mEq VESICANT (YELLOW) Infuse each 10 mEq over a minimum of 1 hour. 1243 ([facility] Hold - Provider: Automatic Transfer Provider - Reason: Patient not available)1517 ([facility] Unhold - Provider: Automatic Transfer Provider) potassium chloride IVPB 10 mEq/50 mL in water (0.2 mEq/mL premix)(Linked Group 6) 10 mEq, intravenous, at 50 mL/hr, Administer over 1 Hours, As needed, for potassium replacement, Starting on Wed09/29/24 at 1955, Administer Potassium Chloride IVPB in 10 mEq increments. Maximum infusion rates: Central Line = 20 mEq/hour. Administer via Central Line Only. If dose administered, recheck potassium level 1 hour after infusion complete. For potassium level 3.4 to 3.8 mmol/L and Serum Creatinine 1.2 or less = 30 mEq For potassium level 3.1 to 3.3 mmol/L and Serum Creatinine 1.2 or less = 40 mEq For potassium level 3 mmol/L or less and Serum Creatinine 1.2 or less = 50 mEq For potassium level 3.4 to 3.8 mmol/L and Serum Creatinine greater than 1.2 = 20 mEq For potassium level 3.1 to 3.3 mmol/L and Serum Creatinine greater than 1.2 = 30 mEq For potassium level 3 mmol/L or less and Serum Creatinine greater than 1.2 = 40 mEq VESICANT (YELLOW) 1243 ([facility] Hold - Provider: Automatic Transfer Provider - Reason: Patient not available)1517 ([facility] Unhold - Provider: Automatic Transfer Provider) sodium chloride 0.9 % flush 10 mL(Linked Group 1) 10 mL, intravenous, As needed, line care, Starting on 09/30/24 at 1442, Short-term Central Line. IVP to lumens before and after each use. 1243 ([facility] Hold - Provider: Automatic Transfer Provider - Reason: Patient not available)1517 ([facility] Unhold - Provider: Automatic Transfer Provider) sodium chloride 0.9 % flush 20 mL(Linked Group 1) 20 mL, intravenous, As needed, line care, Starting on 09/30/24 at 1442, Short-term Central Line. IVP to lumens after lab draws, blood infusion, and meds known to precipitate. 1243 ([facility] Hold - Provider: Automatic Transfer Provider - Reason: Patient not available)1517 ([facility] Unhold - Provider: Automatic Transfer Provider) Linked Groups Order Group 1: sodium chloride 0.9 % flush 10 mLJump to med 10 mL, intravenous, Every 8 hours, First dose on 09/30/24 at 1445, Short-term Central Line. IVP to lumens. And sodium chloride 0.9 % flush 10 mLJump to med 10 mL, intravenous, As needed, line care, Starting on 09/30/24 at 1442, Short-term Central Line. IVP to lumens before and after each use. And sodium chloride 0.9 % flush 20 mLJump to med 20 mL, intravenous, As needed, line care, Starting on Wed09/30/24 at 1442, Short-term Central Line. IVP to lumens after lab draws, blood infusion, and meds known to precipitate. Group 2: calcium gluconate IVPB 1000 mg/50 mL (20 mg/mL premix)Jump to med 1,000 mg, intravenous, at 50 mL/hr, Administer over 60 Minutes, As needed, for ionized calcium level 3.5 to 4.4 mg/dL, Starting on Wed09/29/24 at 1955, Recheck ionized calcium 6 hours after infusion. Hold calcium replacement for phosphorus greater than 5.5 mg/dL. VESICANT (RED) Or calcium gluconate IVPB 2000 mg/100 mL (20 mg/mL premix)Jump to med 2,000 mg, intravenous, at 100 mL/hr, Administer over 60 Minutes, As needed, for ionized calcium level 3 to 3.4 mg/dL, Starting on Wed09/29/24 at 1955, Recheck ionized calcium 6 hours after infusion. Hold calcium replacement for phosphorus greater than 5.5 mg/dL. VESICANT (RED) Or calcium gluconate 3,000 mg in sodium chloride 0.9 % 100 mL IVPBJump to med 3,000 mg, intravenous, at 130 mL/hr, Administer over 60 Minutes, As needed, for ionized calcium level less than 3 mg/dL, Starting on Wed09/29/24 at 1955, CALL PHYSICIAN if this dose is administered. Recheck ionized calcium 6 hours after infusion. Hold calcium replacement for phosphorus greater than 5.5 mg/dL. VESICANT (RED) Group 3: fentaNYL (SUBLIMAZE) injection 50 mcgJump to med 50 mcg, intravenous, Every 2 hour PRN, for severe pain, Starting on Wed09/29/24 at 2002, Look-alike/sound-alike medication - verify indication for use. Or fentaNYL (SUBLIMAZE) injection 25 mcgJump to med 25 mcg, intravenous, Every 2 hour PRN, for mild to moderate pain, Starting on Wed09/29/24 at 2002, Look-alike/sound-alike medication - verify indication for use. Group 4: magnesium sulfate IVPB 2000 mg/50 mL in iso-osmotic water (40 mg/mL premix)Jump to med 2,000 mg, intravenous, at 25 mL/hr, Administer over 120 Minutes, As needed, for magnesium level 1.7 to 1.9 mg/dL or ionized magnesium level 0.45 to 0.5 mmol/L, Starting on Wed09/29/24 at 1954, Use premix solution. Default to ionized magnesium level in cases where patient has both magnesium and ionized magnesium results. If administered, check ionized magnesium (or total magnesium if ionized magnesium unavailable) level 4 hours after infusion. Or magnesium sulfate IVPB 4000 mg/100 mL in iso-osmotic water (40 mg/mL premix)Jump to med 4,000 mg, intravenous, at 25 mL/hr, Administer over 240 Minutes, As needed, for magnesium level 1.6 mg/mL or less, or ionized magnesium level 0.44 mmol/L or less, Starting on Wed09/29/24 at 1954, Use premix solution. Default to ionized magnesium level in cases where patient has both magnesium and ionized magnesium results. If administered, check ionized magnesium (or total magnesium if ionized magnesium unavailable) level 4 hours after infusion. Group 5: potassium chloride (K-TAB,KLOR-CON) CR tablet 20-40 mEqJump to med 20-40 mEq, oral, As needed, for potassium replacement, Starting on Wed09/29/24 at 1954, Progress to oral potassium replacement when patient tolerating oral intake. If dose administered, recheck potassium level 4 hours after last dose. For potassium level 3.4 to 3.8 mmol/L and Serum Creatinine 1.2 or less=30 mEq. For potassium level 3.1 to 3.3 mmol/L and Serum Creatinine 1.2 or less=40 mEq. For potassium level 3 mmol/L or less and Serum Creatinine 1.2 or less=50 mEq. For potassium level 3.4 to 3.8 mmol/L and Serum Creatinine greater than 1.2=20 mEq. For potassium level 3.1 to 3.3 mmol/L and Serum Creatinine greater than 1.2=30 mEq. For potassium level 3 mmol/L or less and Serum Creatinine greater than 1.2=40 mEq. Do not crush or chew. Or potassium chloride (KAYCIEL) 20 mEq/15 mL solution 20-40 mEqJump to med 20-40 mEq, oral, As needed, potassium replacement, Starting on Wed09/29/24 at 1955, Progress to oral potassium replacement when patient tolerating oral intake. If dose administered, recheck potassium level 4 hours after last dose. For potassium level 3.4 to 3.8 mmol/L and Serum Creatinine 1.2 or less=30 mEq (22.5mL). For potassium level 3.1 to 3.3 mmol/L and Serum Creatinine 1.2 or less=40 mEq (30mL). For potassium level 3 mmol/L or less and Serum Creatinine 1.2 or less=50 mEq (37.5mL). For potassium level 3.4 to 3.8 mmol/L and Serum Creatinine greater than 1.2=20 mEq (15mL). For potassium level 3.1 to 3.3 mmol/L and Serum Creatinine greater than 1.2=30 mEq (22.5mL). For potassium level 3 mmol/L or less and Serum Creatinine greater than 1.2=40 mEq (30mL). Must dilute before use - Mix in 3-8 ounces of water or juice before administration When administering in feeding tube, flush before and after per policy and monitor potassium levels Group 6: potassium chloride IVPB 10 mEq/50 mL in water (0.2 mEq/mL premix)Jump to med 10 mEq, intravenous, at 50 mL/hr, Administer over 1 Hours, As needed, for potassium replacement, Starting on Wed09/29/24 at 1954, Administer Potassium Chloride IVPB in 10 mEq increments. Maximum infusion rates: Central Line = 20 mEq/hour. Administer via Central Line Only. If dose administered, recheck potassium level 1 hour after infusion complete. For potassium level 3.4 to 3.8 mmol/L and Serum Creatinine 1.2 or less = 30 mEq For potassium level 3.1 to 3.3 mmol/L and Serum Creatinine 1.2 or less = 40 mEq For potassium level 3 mmol/L or less and Serum Creatinine 1.2 or less = 50 mEq For potassium level 3.4 to 3.8 mmol/L and Serum Creatinine greater than 1.2 = 20 mEq For potassium level 3.1 to 3.3 mmol/L and Serum Creatinine greater than 1.2 = 30 mEq For potassium level 3 mmol/L or less and Serum Creatinine greater than 1.2 = 40 mEq VESICANT (YELLOW) Or potassium chloride IVPB 10 mEq/100 mL in water (0.1 mEq/mL premix)Jump to med 10 mEq, intravenous, at 100 mL/hr, Administer over 60 Minutes, As needed, for potassium replacement, Starting on Wed09/29/24 at 1955, Administer Potassium Chloride IVPB in 10 mEq increments. Maximum infusion rates: Central Line = 20 mEq/hour; Peripheral Line = 10 mEq/hour (10 mEq/100 mL). If dose administered, recheck potassium level 1 hour after infusion complete. For potassium level 3.4 to 3.8 mmol/L and Serum Creatinine 1.2 or less = 30 mEq For potassium level 3.1 to 3.3 mmol/L and Serum Creatinine 1.2 or less = 40 mEq For potassium level 3 mmol/L or less and Serum Creatinine 1.2 or less = 50 mEq For potassium level 3.4 to 3.8 mmol/L and Serum Creatinine greater than 1.2 = 20 mEq For potassium level 3.1 to 3.3 mmol/L and Serum Creatinine greater than 1.2 = 30 mEq For potassium level 3 mmol/L or less and Serum Creatinine greater than 1.2 = 40 mEq VESICANT (YELLOW) Infuse each 10 mEq over a minimum of 1 hour. Reason for Visit (unrecogniz ed section and content) Specialty Diagnoses / Procedures Referred By Rebekah lara Referred To Contact Radiology Diagnoses Spinal stenosis of lumbar region, unspecified whether neurogenic claudication present Procedures MR NEURO IMAGE IMPORT(WHIT) DOWNLOAD POWERSHARE IMAGES TO Geri Garay MD [address] [place] [address] [facility] [address] [place] [address] [place] [address] Referral ID Status Reason Start Date Expiration Date Visits Re quested Visits Authorized [id number] Closed 09/23/2022 09/23/2023 1 1 Specialty Diagnoses / Procedures Referred By Rebekah lara Referred To Contact Radiology Diagnoses Myelopathy (HCC) Procedures MR NEURO IMAGE IMPORT(WHIT) DOWNLOAD POWERSHARE IMAGES TO Geri Garay MD [address] [place] [address] [facility] [address] [place] [address] [place] [address] Referral ID Status Reason Start Date Expiration Date Visits Re quested Visits Authorized [id number] Closed 10/26/2022 10/26/2023 1 1 Reason Comments Neck pain Reason Comments Leg/thigh symptoms Reason Comments Monitoring/follow-up Specialty Diagnoses / Procedures Referred By Rebekah t Referred To Contact Radiology Diagnoses Cervical spondylosis with myelopathy Procedures CT C-SPINE W/O CONTRAST Geri Vergara MD [address] [place] [address] [facility] [address] SCAN Referral ID Status Reason Start Date Expiration Date Visits Re quested Visits Authorized [id number] Closed 02/15/2023 02/15/2024 1 1 Specialty Diagnoses / Procedures Referred By Rebekah t Referred To Contact General Surgery Diagnoses Cervical spondylosis with myelopathy Cervical spondylosis with myelopathy [M47.12] Procedures LAMINOPLASTY, CERVICAL, W/SPINAL CORD DECOMPRESS, 2/> VERTEBRAL SEGMENTS W/POST BONE RECONSTRUCT LAMINOPLASTY, POSTERIOR CERVICAL Geri Vergara MD [address] [place] [address] [facility] [address] [place] [id number] Phone: [phone] Referral ID Status Reason Start Date Expiration Date Visits Re quested Visits Authorized [id number] 3 Reason Onset Date Comments Health Information 04/09/2023 Reason Comments Post Op Check Reason Onset Date Comments Health Information 05/04/2023 Reason Comments Post Op Check Specialty Diagnoses / Procedures Referred By Rebekah t Referred To Contact Radiology Diagnoses Cervical spondylosis with myelopathy Procedures XR C-SPINE FLEX/EXT ONLY 2 VIEWS Geri Vergara MD [address] [place] [address] [facility] [address] [place] [address] Referral ID Status Reason Start Date Expiration Date Visits Re quested Visits Authorized [id number] Closed 06/16/2023 06/15/2024 1 1 Reason Comments Joint Pain Post Op Check Referral ID Status Reason Start Date Expiration Date V isits Requested Visits Authorized [id number] Pending Review 09/15/2023 09/14/2024 1 1 Reason Comments Follow-up Reason Onset Date Comments Restrictions 02/22/2024 Reason Comments Pain Reason Comments Pain Reason Onset Date Comments Eloquis clarification 01/17/2024 INFORMATION SOURCE (unrecogn ized section and content) DATE CREATED AUTHOR 10/02/2022 [facility] DATE CREATED AUTHOR AUTHOR'S ORGANIZ ATION 11/11/2022 Benito Rafa [facility] DATE CREATED AUTHOR AUTHOR'S ORGANIZ ATION 02/01/2024 [facility] DATE CREATED AUTHOR AUTHOR'S ORGANIZ ATION 04/21/2024 [facility] DATE CREATED AUTHOR AUTHOR'S ORGANIZ ATION 08/30/2024 [facility] DATE CREATED AUTHOR AUTHOR'S ORGANIZ ATION 09/27/2024 [facility] DATE CREATED AUTHOR AUTHOR'S ORGANIZ ATION 10/04/2024 [facility] DATE CREATED AUTHOR AUTHOR'S ORGANIZ ATION 10/22/2024 [facility] DATE CREATED AUTHOR AUTHOR'S ORGANIZ ATION 10/27/2024 [facility] DATE CREATED AUTHOR AUTHOR'S ORGANIZ ATION 01/08/2025 [facility] FOR RECORDS PERTAINING TO PATIENTS WHO ARE [...] BE BASED ON THE PRIMARY CLINICAL RECORDS. [employer] provides no warranty or guarantee of the accuracy or completeness of information in this document.
[2025-01-09 18:33] LABS: Alanine Aminotransferase 29 U/L (14-59); Albumin Globulin Ratio 0.9; Albumin Level 3.6 g/dL (3.4-5.0); Alkaline Phosphatase 113 U/L (46-116); Anion Gap 13.3; Aspartate Amino Transferase 28 U/L (15-37); Blood Urea Nitrogen 34.0 mg/dL (7.0-18.0); Calcium 9.4 mg/dL (8.5-10.1); Carbon Dioxide 25.5 mmol/L (21.0-32.0); Chloride 108 mmol/L (98-107); Estimated GFR (African America 53 (>=60 mL/min/1.73m^2); Estimated GFR (Non-African Ame 43 (>=60 mL/min/1.73m^2); Globulin 3.8 g/dL; Glucose 102 mg/dL (74-106); Potassium 4.8 mmol/L (3.5-5.1); Sodium 142 mmol/L (136-145); Total Protein 7.4 g/dL (6.4-8.2)
== END 2025-01-09 15:08 | disposition home or self-care (01) ==
LOC: LAB 15:08
PROVIDERS: PCP Internal Medicine; Visit Provider Internal Medicine
DX: I10 Essential (primary) hypertension (principal)
CPT/HCPCS: 36415; 80053

== ENCOUNTER 2025-02-15 13:03 | Outpatient (OUT) | payer MEDICARE, SELFPAY ==
--- NOTE | 2025-02-15 13:05 | MM_ITS ---
Patient Name: MASSIMO CALLAHAN MR#: [id number] : 1950 Exam Date: 02/15/2025 Ordering Doctor: DR ZEUS BERNARD [facility] RADIOLOGY REPORT PROCEDURE: MM TOMOSYNTHESIS SCREENING BI COMPARISON: MM TOMOSYNTHESIS SCREENING BI, 02/15/2024. MM TOMOSYNTHESIS SCREENING BI, 12/28/2022. MG MAMM SCREEN 3D KRISH CAD, 12/25/2021. MG MAMM KRISH SCRN W CAD DIG, 12/07/2012. INDICATIONS: screening mammogram initial encounter Calculator Name NCI Breast Cancer Risk Assessment Tool 5 Year Breast Cancer Risk 2.90% Lifetime Breast Cancer Risk 6.30% Personal Breast Cancer No Personal Ovarian Cancer No Treatments None Family Cancers Sister with thyroid cancer at age 63. LOCATION: [facility] BREAST COMPOSITION: The breasts are heterogeneously dense, which may obscure small masses. FINDINGS: DIAGNOSTIC CATEGORY 1--NEGATIVE. RIGHT BREAST: No significant suspicious finding. LEFT BREAST: No significant suspicious finding. RECOMMENDATIONS: ROUTINE MAMMOGRAM AND CLINICAL EVALUATION IN 12 MONTHS. Dictated by: Norbert Banks DO on 02/15/2025 at 15:07 Approved by: Norbert Banks DO on 02/15/2025 at 15:20
--- OUTSIDE RECORDS SUMMARY | 2025-02-15 13:06 | XMS_ITS | Clinical Summary ---
Author Organization [facility] Address [address] [place] [address] [place] [address] Care Team Providers Care Jewel Stripper Name Role Phone Andrae Patino MD Unavailable Magnus Shay MD Primary Care Provider [phone] Allergies Active Allergy Reactions Criticality Noted Date [...] Date Diagnosed Date Obesity (BMI 30.0-34.9) 05/22/2020 Family History Medical History Relation Name Comments [...] SCREENING DISCUSSION 12/26/2022 0 12/26/2021, 12/26/2020, 12/07/2017 POTASSIUM 11/28/2024 11/29/2023, 07/2022, 05/22/2020 COVID-19 VACCINE (2023-2 5 season) 2025 02/25/2024, 08/13/2023, 09/27/2022, Additional history exists INFLUENZA VACCINE (#1) 2025 , 02/02/2023, 02/01/2022, Additional history exists PNEUMOCOCCAL VACCINE SERIES Completed 12/2017, 03/04/2016, 05/01/2015, Additional history exists RSV VACCINE Completed 02/23/2023 Procedures Procedure Name Priority Date/Time Associated Diagnosis Comments CHEM 6 (LYTES, BUN CREA) Routine 11/29/2023 2:44 PM EDT Primary biliary cholangitis Abnormal LFTs Splenomegaly OUTSIDE COLONOSCOPY 08/13/2020 from Last 3 Months or Most Recently Relevant to Health Maintenance Results * (ABNORMAL) CHEM 6 (LYTES, BUN CREA) (11/29/2023 2:44 PM EDT) BUN 35(H) 7 - 25 mg/dL 11/29/2023 5:01 PM EDT [facility] Sodium 141 135 - 145 mmol/L 11/29/2023 5:01 PM EDT [facility] Potassium 4.1 3.5 - 5.0 mmol/L 11/29/2023 5:01 PM EDT [facility] Chloride 107 98 - 108 mmol/L 11/29/2023 5:01 PM EDT [facility] CO2 25 21 - 31 mmol/L 11/29/2023 5:01 PM EDT [facility] Creatinine 0.99 0.50 - 1.20 mg/dL 11/29/2023 5:01 PM EDT [facility] Bun/Crea Ratio 35 11/29/2023 5:01 PM EDT [facility] Anion Gap 13 7 - 17 mmol/L 11/29/2023 5:01 PM EDT [facility] eGFR, CKD-EPI, Female 60 >=60 mL/min/1.7 3m2 11/29/2023 5:01 PM EDT [facility] Comment:Reported eGFR is bas ed on the CKD-EPI 2020 equation using creatinine, age, and sex. Blood Venipuncture / Unknown 11/29/2023 2:44 PM EDT 11/29/2023 2:46 PM EDT us Mono Cordova MD CHEMISTRY ORDERABLES Final Resul t [facility] Organization Address City/State/ZIP Co de Phone Number [facility] [address] [address] * COLONOSCOPY (OUTSIDE) (08/13/2020) Anatomical Region Laterality Modality Other 08/13/2020 us Other Other GI/BRONCH PROCEDURE ORDERABLES F inal Result from Last 3 Months or Most Recently Relevant to Health Maintenance Insurance Medicare A and B [employer] Care Teams Jewel Stripper Relationship Specialty Start Date End Date Magnus Shay MD [address] [place] [address], [place] [address] PCP - General Internal Medicine 11/23/22 Andrae Patino MD [address] [place] [address] [place] [address] Gastroenterology 11/23/22
--- OUTSIDE RECORDS SUMMARY | 2025-02-15 13:06 | XMS_ITS | Clinical Summary ---
Author Organization [facility] Address [address] [place] [address] Care Team Providers Care Business Enterprise Officer Name Role Phone Magnus Shay MD Primary Care Provider [phone] Allergies Active Allergy Reactions Criticality Noted Date Comments Morphine Itching 03/11/2023 Nickel Other 03/11/2023 Penicillin G Swelling 03/11/2023 Sulfites Other 03/11/2023 Sneezing / Runny Nose Medications valsartan (Diovan) 320 MG tablet Take 320 mg by mouth in the morning. 11/10/2022 Active atorvastatin (Lipitor) 20 MG tablet Take 20 mg by mouth in the morning. 05/19/2022 Active levothyroxine (Synthroid, Levoxyl) 100 MCG tablet Take 100 mcg by mouth in the morning. 05/19/2022 Active hydroCHLOROthia zide (HYDRODiuril) 12.5 MG tablet Take 12.5 mg by mouth in the morning. Active carvedilol (Coreg) 25 MG tablet Take 25 mg by mouth in the morning and 25 mg before bedtime. Active metFORMIN (Glucophage) 500 MG tablet Take 500 mg by mouth in the morning and 500 mg in the evening. Take with meals. 05/19/2022 Active meloxicam (Mobic) 15 MG tablet Take 15 mg by mouth in the morning. Active cetirizine (ZyrTEC) 10 MG tablet Take 10 mg by mouth. Active Probiotic Product (PROBIOTIC BLEND PO) as directed Orally Active aspirin 81 MG EC tablet Take 81 mg by mouth in the morning. Active 28-0.8 MG tablet 1 (one) time each day at the same time. Active Carboxymethylce llulose Sodium (EQ RESTORE PLUS LUBRICANT EYE OP) Restore-X Active cholecalciferol (Vitamin D-3) 50 MCG (2000 UT) tablet Take 1 tablet by mouth in the morning. Active CALCIUM CITRATE PO Take 600 mg by mouth in the morning and 600 mg at noon and 600 mg in the evening. Active coenzyme Q-10 (Q-SORB) 100 MG capsule Daily, Refills(s) 0 05/19/2022 Active [place] 3-6-9 Fatty Acids (TRIPLE OMEGA COMPLEX PO) Take by mouth. Active triamcinolone (Nasacort Allergy 24HR) 55 MCG/ACT nasal inhaler 1 (one) time each day at the same time. Active ursodiol (Actigall) 500 MG tablet Take 500 mg by mouth in the morning and 500 mg before bedtime. 12/17/2022 Active cycloSPORINE (Restasis) 0.05 % ophthalmic emulsion 1 drop. 11/10/2022 Active Acetaminophen 500 MG capsule Activ e omeprazole (PriLOSEC) [address] capsule Take 10 mg by mouth in the morning. Take before meals. Do not crush or chew. Active Active Problems No known active problems Encounters Date Type Department Care Team Description 01/03/2025 2:40 PM EDT Ancillary Procedure [facility] [address] [facility] [address] [place] [address] 01/03/2025 2:35 PM EDT Ancillary Procedure [facility] [address] [facility] [address] [place] [address] 01/03/2025 2:20 PM EDT Ancillary Procedure [facility] [address] [place] [address] [place] [address] 01/03/2025 2:15 PM EDT Office Visit [facility] [address] [facility] [address] [place] [address] Jr. Keith Gabriel DO Left hip pain; Acute pain of left knee; Acute pain of right knee 01/03/2025 Bamboo flowsheet [facility] [address] [facility] [address] [place] [address] Jr. Keith Gabriel DO 01/03/2025 Travel 12/29/2024 Travel 12/07/2024 Travel from Last 3 Months Family History Medical History Relation Name Comments Alzheimer's disease Father Heart disease Father Hypertension Father Mental illness Father Stroke Father Heart disease Maternal Grandfather Hypertension Maternal Grandfather Alzheimer's disease Mother Diabetes Mother Hypertension Mother Mental illness Mother Relation Name Status Comments Father Maternal Grandfather Mother Social History Tobacco Use Types Packs/Day Years Used Date Smoking Tobacco: Former Cigarettes Q uit: 1975 Smokeless Tobacco: Never Tobacco Cessation:Counseling Given: Not [...] AM EDT Sexual Orientation Not on file Last Filed Vital Signs Vital Sign Reading Time Taken Comments Blood Pressure - - Pulse - - Temperature - - Respiratory Rate - - Oxygen Saturation - - Inhaled Oxygen Concentration - - Weight 62.1 kg (137 lb) 12/08/2023 11:06 AM EDT Height 154.9 cm (5' 1 ) 12/08/2023 11:06 AM EDT Body Mass Index 25.89 12/08/2023 11:06 AM EDT Plan of Treatment Upcoming Encounters Date Type Department Care Team (Late st Contact Info) Description 01/02/2026 2:00 PM EDT Office Visit [facility] [address] [place] [address] [place] [id number] Jr. Keith Gabriel, [address] [place] [address] Health Maintenance Due Date Last Done Comments CT Colonography 1950 FIT-DNA 1950 FIT 1950 Sigmoidoscopy 1950 Influenza Vaccine (#1) 2025 , 02/02/2023, 02/01/2022, Additional history exists FOBT 09/29/2025 09/29/2024 Colonoscopy 08/13/2030 08/13/2020, 03/2 07/2020, 12/03/2016 Colorectal Cancer Screening 08/13/2030 Pneumococcal Vaccine: 65+ Years Completed 02/28/2018, 03/04/2016, 05/01/2015, Additional history exists Mammogram Discontinued 12/26/2021, 08/0 09/2021, 12/26/2020, Additional history exists Procedures Procedure Name Priority Date/Time Associated Diagnosis Comments XR KNEE 1-2 VIEWS LEFT Routine 01/03/2025 2:33 PM EDT Acute pain of left knee XR KNEE 1-2 VIEWS RIGHT Routine 01/03/2025 2:33 PM EDT Acute pain of right knee XR HIP 2 OR 3 VW LEFT Routine 01/03/2025 2:18 PM EDT Left hip pain from Last 3 Months Results * XR knee 1 or 2 views right (01/03/2025 2:33 PM EDT) Anatomical Region Laterality Modality Lower Extremities, Knee Right Radiogra phic Imaging Narrative 01/03/2025 3:05 PM EDT Imaging Result: AP and lateral of right knee showed surgical position and alignment of prosthetic components without evidence of loosening or wear to the femoral, tibial, or patellar components. The alignment appeared to be anatomic. There was no evidence of accelerated or asymmetric wear to the patellar button or tibial tray. There was no evidence of fracture and/or dislocation. Impression: Unremarkable right total knee arthroplasty. Jr. Keith Gabriel DO IMG XR PROCEDURES Final Result * XR knee 1 or 2 views left (01/03/2025 2:33 PM EDT) Anatomical Region Laterality Modality Lower Extremities, Knee Left Radiogra phic Imaging Narrative 01/03/2025 3:05 PM EDT Imaging Result: AP and lateral of left knee showed surgical position and alignment of prosthetic components without evidence of loosening or wear to the femoral, tibial, or patellar components. The alignment appeared to be anatomic. There was no evidence of accelerated or asymmetric wear to the patellar button or tibial tray. There was no evidence of fracture and/or dislocation. Impression: Unremarkable left total knee arthroplasty. Jr. Keith Gabriel DO IMG XR PROCEDURES Final Result * XR hip left 2 or 3 views (01/03/2025 2:18 PM EDT) Anatomical Region Laterality Modality Lower Extremities, Hip Left Radiograp hic Imaging Narrative 01/03/2025 3:05 PM EDT Imaging Result: AP and lateral of left hip showed acceptable position and alignment of left total hip arthroplasty. There was no evidence of loosening of the acetabular cup or femoral stem. Femoral head was well centered in the acetabular liner without evidence of asymmetric or accelerated wear. There was no gross evidence of fracture and/or dislocation. Impression: Unremarkable left total hip arthroplasty. Jr. Keith Gabriel DO IMG XR PROCEDURES Final Result from Last 3 Months Insurance MEDICARE [facility] Care Teams Business Enterprise Officer Relationship Specialty Start Date End Date Magnus Shay MD [address] [place], [place] [id number] PCP - General 03/08/23
--- OUTSIDE RECORDS SUMMARY | 2025-02-15 13:06 | XMS_ITS | Clinical Summary ---
Author Organization [facility] Address [address] [facility] [place] [address] Care Team Providers Care Slitter Processed Film Name Role Phone Isaias Downs MD Unavailable [phone] Dee Mireles Unavailable [phone] Source Comments The following information is NOT included in Care Everywhere downloads:Psychiatric notes, ECG results, Cardiac Rehab notes, Pulmonary Function notes, data from [email or web address] (includes but not limited toPregnancy data,audiograms, eye exams, pre-surgical evaluation notes, well-child exam data).[facility] Allergies Active Allergy Reactions Criticality Noted Date Comments Cyclobenzaprine Hallucinations 04/13/2024 Morphine 10/06/2022 Nickel 10/06/2022 Penicillins 10/06/2022 Sulfites 10/06/2022 Medications levothyroxine (SYNTHROID) 100 MCG tablet Take 100 mcg by mouth daily. Active atorvastatin (LIPITOR) 20 mg tablet Take 20 mg by mouth daily. Active hydrochlorothia zide (MICROZIDE) 12.5 MG capsule Take 12.5 mg by mouth daily. Active CARvedilol (COREG) 25 MG tablet Take 25 mg by mouth 2 times daily. Active valsartan (DIOVAN) 320 MG tablet Take 320 mg by mouth daily. Active metformin (GLUCOPHAGE) 500 MG tablet Take 500 mg by mouth 2 times daily (with meals). Active ursodiol (ACTIGALL) 250 MG TABS tablet Take 500 mg by mouth 2 times daily. Active TRAZODONE HCL ORAL Take 50 mg by mouth at bedtime. Active cycloSPORINE (RESTASIS OP) by Ophthalmic route 2 times a day. Active cetirizine (ZyrTEC Allergy) 10 MG tablet Take 10 mg by mouth. Active Triamcinolone Acetonide (NASACORT NASAL) Use in each nostril. Active aspirin EC 81 MG tablet Take 81 mg by mouth daily. Active Calcium Citrate 150 MG CAPS Take by mouth 3 times daily. Active Cholecalciferol (Vitamin D) 50 MCG (2000 UT) TABS Take by mouth. Activ e [place] 3-6-9 Fatty Acids (TRIPLE [place]-3-6-9 ORAL) Take by mouth. Activ e Coenzyme Q10 (Co Q 10) 100 MG CAPS Take by mouth. Activ e Active Problems Problem Noted Date Diagnosed Date History of major orthopedic surgery 04/03/2023 High blood cholesterol 03/22/2023 3 Cervical spondylosis with myelopathy 02/15/2023 Other specified hypothyroidism 02/26/2017 1 Type 2 diabetes mellitus wit hout complication, without long-term current use of insulin 05/19/2016 03/22/2023 OAB (overactive bladder) 02/12/2016 023 Essential hypertension 05/08/2015 3 Immunizations Immunization Administration Dates Next Due Influenza, injectable, adjuv anted, quadrivalent, preservative free (HRE=468) 02/02/2023 Influenza, injectable, high dose seasonal, trivalent, preservative free (DNS=042) 02/11/2024,02/14/2019,02/28/2018,02/19 Influenza, injectable, high- dose seasonal, quadrivalent, preservative free (MTT=459) 02/01/2022,02/03/2021,01/25/2020 Influenza, novel U4J7-12, in jectable, preservative-free (RYM=130) 03/25/2009 Pfizer Monovalent (12+ yrs) SARS-COV-2 (COVID-19) vaccine, mRNA, spike protein, LNP, pres. free, 30 mcg/0.3mL dose (FEF=760) 02/15/2021,07/22/2020,07/01/2020 Pfizer Monovalent (12+ yrs) SARS-COV-2 (COVID-19) vaccine, mRNA, spike protein, LNP, pres. free, 30 mcg/0.3mL dose, nabil-sucrose (OGD=143) 08/27/2021 Pneumococcal conjugate 13 va lent (PCV13) (HQB=452) 05/01/2015 Pneumococcal polysaccharide 23 Valent (PPSV23) (CVX=33) 02/28/2018 Social History Tobacco Use Types Packs/Day Years Used Date Smoking Tobacco: Former Cigarettes Smokeless Tobacco: Never Tobacco Cessation:Counseling Given: Not Answered Alcohol Use Standard Drinks/Week Comments Not Currently 0 (1 standard drink = 0.6 oz pur e alcohol) [facility] Progressive Careities Answer Date Recorded In the past 12 months has e [employer], gas, oil, or water [employer] threatened to shut off services in your home? No 04/10/2024 Humiliation, Afraid, Rape, and Kick questionnair e Answer Date Recorded Within the last year, have y ou been afraid of your partner or ex-partner? Patient declined 04/10/2024 Within the last year, have y ou been humiliated or emotionally abused in other ways by your partner or ex-partner? Patient declined 04/10/2024 Within the last year, have y ou been kicked, hit, slapped, or otherwise physically hurt by your partner or ex-partner? Patient declined 04/10/2024 Within the last year, have y ou been raped or forced to have any kind of sexual activity by your partner or ex-partner? Patient declined 04/10/2024 Social Connection and Isolat ion Panel [NHANES] Answer Date Recorded In a typical week, how many times do you talk on the phone with family, friends, or neighbors? More than three times a week 04/10/2024 How often do you get togethe r with friends or relatives? Twice a week 04/10/2024 How often do you attend chur ch or orthodoxy services? 1 to 4 times per year 04/10/2024 Do you belong to any clubs o r organizations such as taoism groups, unions, fraternal or athletic groups, or school groups? Yes 04/10/2024 How often do you attend meet ings of the clubs or organizations you belong to? More than 4 times per year 04/10/2024 Are you , , di vorced, , never , or living with a partner? Never 04/10/2024 Overall Financial Resource Strain (CARDIA) Answe r Date Recorded How hard is it for you to pa y for the very basics like food, housing, medical care, and heating? Somewhat hard 04/10/2024 [facility] of Occupat ional [facility] - Occupational Stress Questionnaire Answer Date Recorded Do you feel stress - tense, restless, nervous, or anxious, or unable to sleep at night because your mind is troubled all the time - these days? To some extent 04/10/2024 Exercise Vital Sign Answer Date Recorde d On average, how many days pe r week do you engage in moderate to strenuous exercise (like a brisk walk)? 3 days 04/10/2024 On average, how many minutes do you engage in exercise at this level? 10 min 04/10/2024 Hunger Vital Sign Answer Date Recorded Within the past 12 months, y ou worried that your food would run out before you got the money to buy more. Never true 04/10/20 24 Within the past 12 months, t he food you bought just didn't last and you didn't have money to get more. Never true 04/10/2024 PRAPARE - Transportation Answer Date Re corded In the past 12 months, has l ack of transportation kept you from medical appointments or from getting medications? No 03/24 In the past 12 months, has l ack of transportation kept you from meetings, work, or from getting things needed for daily living? No 04/10/2024 Housing Stability Vital Sign Answer Ariel e Recorded In the last 12 months, was t here a time when you were not able to pay the mortgage or rent on time? No 09/29/2022 In the last 12 months, how many places have you lived? 1 09/29/2022 In the last 12 months, was t here a time when you did not have a steady place to sleep or slept in a correction (including now)? No 09/29/2022 Housing Stability Vital Sign Answer Ariel e Recorded In the last 12 months, was t here a time when you were not able to pay the mortgage or rent on time? No 04/10/2024 In the past 12 months, how m any times have you moved where you were living? 0 04/10/2024 At any time in the past 12 m [facility], were you homeless or living in a correction (including now)? No 04/10/2024 Utilities - Historical Answer Date Tian rded In the past 12 months has th e electric, gas, oil, or water company threatened to shut off services in your home? No 04/10/2024 Education Answer Date Recorded What is the highest level of school you have completed or the highest degree you have received? Master's degree (e.g., MA, MS, Yoni, MEd, COPY CENTER OPERATOR, IRENE) 09/29/2022 Substance Use Types Use/Week Comments Not Currently Comments No Sex and Gender Information Value Date Recorded Sex Assigned at Female 09/24/2022 5:40 PM EDT Legal Sex Female 3:43 PM EDT Gender Identity Female 09/24/2022 5:40 PM EDT Sexual Orientation Straight 09/24/2022 5: 40 PM EDT Last Filed Vital Signs Vital Sign Reading Time Taken Comments Blood Pressure 136/65 04/03/2023 5:11 AM EST Pulse 81 04/03/2023 5:11 AM EST Temperature 36.9 C (98.4 F) 04/03/2023 5:11 AM EST Respiratory Rate 18 04/03/2023 5:11 AM EST Oxygen Saturation 98% 04/03/2023 5:11 AM EST Inhaled Oxygen Concentration - - Weight 72.1 kg (159 lb) 03/31/2023 3:39 PM EST Height 157.5 cm (5' 2 ) 03/31/2023 9:03 AM EST Body Mass Index 29.08 03/31/2023 9:03 AM EST Plan of Treatment Upcoming Encounters Date Type Department Care Team (Late st Contact Info) Description 03/29/2025 12:45 PM EST Office Visit [facility] Orthopedic Spine [address] [place], [place] [id number] Isaias Downs MD [address] [place] [address] Health Maintenance Due Date Last Done Comments Colonoscopy 1949 Foot Exam 1949 TSH 1949 Vitamin B12 1949 Eye Exam 1949 Hepatitis C Antibody 10/21/1967 Tdap Booster 10/21/1967 Hepatitis A (HAV) Vaccine (optional start 19+ years) 1968 CRC Screening 1994 Cologuard (Stool DNA) 1994 FIT 1994 Shingles (RZV) Vaccine (1 of 2) 10/21/1999 Hepatitis B (HBV) Vaccine (optional start 60+ years) 2009 Bone Densitometry 2014 Mammography 12/26/2022 12/26/2021, 09/2020, 12/07/2017 Basic Metabolic Panel 03/23/2024 03/23/2023 , 03/15/2023, 03/10/2022, Additional history exists Hemoglobin A1C 09/13/2024 03/15/2024, 07/2022, 09/28/2022 RSV vaccine (adult) (1 - 1-d ose 75+ series) 2024 Lipid Profile 12/25/2024 12/26/2023, 09/21/2023 COVID-19 Vaccine (2023-2 5 season) 2025 02/25/2024, 08/13/2023, 09/27/2022, Additional history exists Influenza Vaccine (#1) 2025 , 02/02/2023, 02/01/2022, Additional history exists Urine Protein (microalbumin) 03/15/2025 03/15/2024 Annual Wellness Visit (G0439) 03/24/2025 03/27/2024 Pneumococcal Vaccine(s) (50+ yrs) Completed 018, 05/01/2015 Pap Smear Discontinued Medical Devices Implanted Type Area Lamp Decorator Device Identifier Shelf Expiration Date Model / Serial / Lot Plate 7mm In-Line Shelf Ea1 1102.3007 - [id number] Implanted:Qty: 4 on 03/31/2023 by Isaias Downs MD at INPATIENT DEPARTMENTS Plate N/A: Posterior Cervical Globus 1102.3007 / / Screw 2.6 X 4mm Self-Drilling Ea1 1102.6004 - [id number] Implanted:Qty: 3 on 03/31/2023 by Isaias Downs MD at INPATIENT DEPARTMENTS Screw N/A: Posterior Cervical Globus 1102.6004 / / Screw 2.6 X 6mm Self-Drilling Ea1 1102.6006 - [id number] Implanted:Qty: 5 on 03/31/2023 by Isaias Downs MD at INPATIENT DEPARTMENTS Screw N/A: Posterior Cervical Globus 1102.6006 / / Procedures Procedure Name Priority Date/Time Associated Diagnosis Comments BASIC METABOLIC PANEL Routine 03/23/2023 10:34 AM EDT Preop testing from Last 3 Months or Most Recently Relevant to Health Maintenance Results * (ABNORMAL) BASIC METABOLIC PANEL (03/23/2023 10:34 AM EDT) Glucose 187(H) 80 - 116 mg/dL 03/23/2023 12:33 PM EDT [facility] Sodium 140 135 - 148 mmol/L 03/23/2023 12:33 PM EDT [facility] Potassium 4.2 3.3 - 5.3 mmol/L 03/23/2023 12:33 PM EDT [facility] Carbon Dioxide 26 21 - 30 mmol/L 03/23/2023 12:33 PM EDT [facility] Chloride 104 97 - 111 mmol/L 03/23/2023 12:33 PM EDT [facility] Blood Urea Nitrogen 40(H) 8 - 22 mg/dL 03/23/2023 12:33 PM EDT [facility] Creatinine 1.31(H) 0.50 - 1.10 mg/dL 03/23/2023 12:33 PM EDT [facility] Calcium 9.9 8.4 - 10.4 mg/dL 03/23/2023 12:33 PM EDT [facility] Anion Gap 14 10 - 20 03/23/2023 12:33 PM EDT [facility] Estimated GFR (CKD-EPI) 43(L) >=60 mL/min/1. 73sqm 03/23/2023 12:33 PM EDT [facility] Comment: 2020 CKD EPI Equation using Creatinine [...] of Race in Diagnosing Kidney Disease. [place] Journal of Kidney Diseases 202;79(2):268- 88.e1. 2. N Engl J Med 2021 Vol. 385 Issue 19 Pages 9036-0898 Blood BLOOD SPECIMEN / Unknown Venipuncture / Unknown 03/23/2023 10:34 AM EDT 03/23/2023 12:02 PM EDT Dee Mireles PIPELINE SYSTEMS OPERATOR-HUMAN RESOURCES OFFICE ASSISTANT 98 GENERAL LAB Final R esult S PATHOLOGY LABORATORY [address] [place] [address] from Last 3 Months or Most Recently Relevant to Health Maintenance Insurance MEDICARE DO NOT USE [facility] Advance Directives * Full Code (Latest Code Status on File) Date Activated Date Inactivated Comments 03/31/2023 3:39 PM 04/03/2023 3:35 PM Question Answer Comments Documentation of decision pr ocess for this code status: Discussed with patient or surrogate. This is the code status chosen by the patient/surrogate. Care Teams Slitter Processed Film Relationship Specialty Start Date End Date Isaias Downs MD [address] [place] [id number] Physician Orthopaedic Surgery 09/26/22 Dee Mireles APRN-HUMAN RESOURCES OFFICE ASSISTANT [address] [place] [id number] CASH MANAGEMENT COORDINATOR Anesthesiology 03/27/23
--- OUTSIDE RECORDS SUMMARY | 2025-02-15 13:06 | XMS_ITS | Clinical Summary ---
Author Organization [employer] s tem Address [id number] [address] [place] [address] Care Team Providers Care Conductor Yard Name Role Phone Unavailable Primary Care Provider [...] tablet (500 mg total) before bedtime. Active Active Problems Problem Noted Date Diagnosed Date GI bleed 09/29/2024 Immunizations Immunization Administration Dates Next Due Covid-19, [...] drink = 0.6 oz pur e alcohol) [facility] Utilities Answer Date Recorded In the [...] Risk Screening 2014 COVID-19 Vaccine ( season) 2025 02/25/2024, 08/13/2023, 02/23/2023, Additional history exists Influenza Vaccine 01/22/2025 02/11/2024, , 02/01/2022, Additional history exists Depression Screening 09/30/2025 09/30/2024 Tobacco Screening 10/02/2025 10/02/2024 Goals Goal Patient Goal Type Associated Problems Recent Progress Patient-Stated? Author Return home General Yes Nadya Pickens, RN Note: Evaluation of progress towards goal: Plan to return home. Medical Devices Not on file Insurance MEDICARE [facility] Advance Directives * Full Code (Latest Code Status on File) Date Activated Date Inactivated Comments 09/29/2024 7:59 PM 10/03/2024 6:17 PM
--- OUTSIDE RECORDS SUMMARY | 2025-02-15 13:06 | XMS_ITS | Encounter Summary ---
Author Organization [employer] [facility] Address [id number] [address] [place] [address] Care Team Providers Care Architectural Design Professor Name Role Phone Unavailable Primary Care Provider Unavailabl e Encounter Details Date Type Department Care Team (Late st Contact Info) Description 09/30/2024 Orders Only [facility] [employer] [address] [place] [address] Transcribe, Orders Support User Pain (Primary Dx) Social History Tobacco Use Types Packs/Day Years Used Date Smoking Tobacco: Former Cigarettes Smokeless Tobacco: Never Alcohol Use Standard Drinks/Week Comments Not Currently 0 (1 standard drink = 0.6 oz pur e alcohol) [facility] Utilities Answer Date Recorded In the past 12 months has e [employer], gas, oil, or water [employer] threatened to shut off services in your [...]
--- OUTSIDE RECORDS SUMMARY | 2025-02-15 13:06 | XMS_ITS | Clinical Summary ---
Author Organization [facility] Address [address] [place], [place] [id number] Care Team Providers Care Baling Press Operator Name Role Phone Unavailable Primary Care Provider Unavailabl e Social History Tobacco Use Types Packs/Day Years Used Date Smoking Tobacco: Never Assessed Comments Unknown Sex and Gender Information Value Date Recorded Sex Assigned at Not on file Legal Sex Female 3:10 PM EDT Gender Identity Not on file Sexual Orientation Not on file Plan of Treatment Upcoming Encounters Date Type Department Care Team (Latest Contact Info) Description 05/22/2025 2:00 PM EST Office Visit [facility] [address] [place] [address] Lissa Maria MD [address] [facility] [place] [address] Diagnostics, Eye Tech And [address] [address] Cataract Evaluation (referral scanned) Health Maintenance Due Date Last Done Comments Anxiety Screening 10/21/1967 Depression Screening 10/21/1967 Hepatitis C Screening 10/21/1967 DTaP,Tdap,Td Vaccine (1 - Tdap) 1968 CT Colonography 1994 Cologuard (FIT-DNA) 1994 Colonoscopy 1994 Colorectal Cancer Screening 1994 Diabetes Screening 1994 Fecal Occult Blood 1994 Lipid Screening 1994 Sigmoidoscopy 1994 Pneumococcal Vaccine: 50+ (1 of 1 - PCV) 10/21/1999 Shingrix Vaccine (1 of 2) 10/21/1999 Bone Density Screening 2014 Advance Directive Discussion 05/24/2024 RSV Vaccine (1 - 1-dose 75+ series) 2024 Influenza Vaccine (#1) 2025 [id number] [address]
--- OUTSIDE RECORDS SUMMARY | 2025-02-15 13:06 | XMS_ITS | Encounter Summary ---
Author Organization [facility] Address [address] [place] [address] Care Team Providers Care Feather Washer Name Role Phone Andrae Patino MD Unavailable Magnus Shay MD Primary Care Provider [phone] Reason for Visit * Reason Onset Date Comments Labs Only 10/26/2022 Encounter Details Date Type Department Care Team (Late st Contact Info) Description 10/26/2022 Telephone Central Scheduling [address] [place] [address] Kaylen De La Rosa Labs [...] October 08, and Dr. Andrae Patino, of [facility], is concerned that when she had the booster (also in September) could have interfered with her lab work and wanted this relayed to the provider as an FYI. Please call if there are any questions. Dr. Patino, Preferred call back time: [phone] Will warm connect patient to nursing line [...] on filedocumented in this encounter Care Teams Feather Washer Relationship Specialty Start Date End Date Magnus Shay MD [address] [place] [address], [place] [address] PCP - General Internal Medicine 11/23/22 Andrae Patino MD [address] [place] [address] Gastroenterology 11/23/22 documented as of this encounter
--- OUTSIDE RECORDS SUMMARY | 2025-02-15 13:06 | XMS_ITS | Encounter Summary ---
Author Organization [facility] tem Address [id number] [address] [place] [address] Care Team Providers Care Special Trackwork Blacksmith Name Role Phone Unavailable Primary Care Provider Unavailabl e Encounter Details Date Type Department Care Team (Late st Contact Info) Description 10/04/2024 Documentation [facility] - GEN 9 ICU [address] [facility] [place] [address] Joel Carroll RN Social History Tobacco Use Types Packs/Day Years Used Date Smoking Tobacco: Former Cigarettes Smokeless Tobacco: Never Alcohol Use Standard Drinks/Week Comments Not Currently 0 (1 standard drink = 0.6 oz pur e alcohol) [facility] Utilities Answer Date Recorded In the past 12 months has e [employer], gas, oil, or water [employer] threatened to shut off services in your [...]
--- OUTSIDE RECORDS SUMMARY | 2025-02-15 13:06 | XMS_ITS | Encounter Summary ---
Author Organization [facility] Address [address] [place] [address] Care Team Providers Care Senior Designer/Art Director Name Role Phone Andrae Patino MD Unavailable Magnus Shay MD Primary Care Provider [phone] Reason for Visit * Reason Onset Date Comments Medication Follow-up 02/04/2023 Encounter Details Date Type Department Care Team (Late st Contact Info) Description 02/04/2023 Telephone Gastroenterology and Hepatology [facility] [address] [phone] Pamela Mckeon Medication Follow-up Social History Tobacco [...] [place] Subject of call: Sonja called from [facility] (with [facility]) Reason for call: Pt was prescribed Duloxetine 30mg at bedtime, but pharmacist recommends pt 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 Is this medication safe for this pt or is there an alternative medication that pt could take instead? Preferred call back time: Any, Sonja PH# [phone] press 0 Will warm connect patient to [...] on filedocumented in this encounter Care Teams Senior Designer/Art Director Relationship Specialty Start Date End Date Magnus Shay MD [address] [place] [address] [place] [address] PCP - General Internal Medicine 11/23/22 Andrae Patino MD [address] [facility] [place] [address] Gastroenterology 11/23/22 documented as of this encounter
--- OUTSIDE RECORDS SUMMARY | 2025-02-15 13:07 | XMS_ITS | Encounter Summary ---
Author Organization [facility] Address [address] [place] [address] Care Team Providers Care Air Quality Chemist Name Role Phone Andrae Patino MD Unavailable Magnus Shay MD Primary Care Provider [phone] Reason for Visit * Reason Onset Date Comments Advice Only 08/14/2024 Encounter Details Date Type Department Care Team (Late st Contact Info) Description 08/14/2024 Telephone Inter[facility]iology [facility] [address] [place] [address] Ihisschedule, Interventional Rad (Ir Dept Use Only) [address] [place] [address] [address] [place] [id number] Advice Only Social History Tobacco Use Types [...] procedure to eat. Please call her at [phone]. documented in this encounter Plan of Treatment Not on file documented as of this encounter Visit Diagnoses Not on filedocumented in this encounter Care Teams Air Quality Chemist Relationship Specialty Start Date End Date Magnus Shay MD [address] [place] [address] [place] [address] PCP - General Internal Medicine 11/23/22 Andrae Patino MD [address] [place] [address] Gastroenterology 11/23/22 documented as of this encounter
--- OUTSIDE RECORDS SUMMARY | 2025-02-15 13:07 | XMS_ITS | Encounter Summary ---
Author Organization [employer] s tem Address [id number] [address] [place] [address] Care Team Providers Care Powerhouse Oiler Name Role Phone Unavailable Primary Care Provider Unavailabl e Reason for Visit * Reason Onset Date Comments Transfer 09/29/2024 Encounter Details Date Type Department Care Team (Late st Contact Info) Description 09/29/2024 Telephone [employer] [facility] [address] [place] [phone] Candida Quiros Transfer Social History Tobacco Use Types Packs/Day Years Used Date Smoking Tobacco: Never Assessed [facility] Utilities Answer Date Recorded In [...] Andrews is calling for a Pt at [facility] with Lauren Fuchs and are requesting a transfer. Call [phone] * Telephone Encounter - Candida Quiros - 09/29/2024 8:45 AM EDT Secure chat sent to Melquiades Smith MD documented in this encounter Plan of Treatment Not on file documented as of this encounter Visit Diagnoses Not on filedocumented in this encounter
--- OUTSIDE RECORDS SUMMARY | 2025-02-15 13:07 | XMS_ITS | Encounter Summary ---
Author Organization [facility] Address [address] [place] [address] Care Team Providers Care Chair Lift Operator Name Role Phone Magnus Shay MD Primary Care Provider [phone] Encounter Details Date Type Department Care Team (Late Contact Info) Description 11/29/2023 Orders Only [facility] [address] [facility] [address] [place] [id number] Jr. Keith Gabriel, DO [address] [facility] [address] [place] [address] Social History Tobacco Use Types Packs/Day Years [...] [facility] [address] [place] [address] [place] [id number] Jr. Keith Gabriel, DO [address] [facility] [address] [place] [address] documented as of this encounter Procedures Procedure [...] on filedocumented in this encounter Care Teams Chair Lift Operator Relationship Specialty Start Date End Date Magnus Shay MD [address] [place] [address] PCP - General 03/08/23 documented as of this encounter
--- OUTSIDE RECORDS SUMMARY | 2025-02-15 13:12 | XMS_ITS | CCD ---
Author Organization [facility] Care Team Providers Care Lion Trainer Name Role Phone Vladimir Greco Primary Care Physician Unavail able Vladimir Greco Unavailable Unavailable Cooper Eller Primary Care Provider Vladimir Greco Primary Care Physician Unavail able Vladimir Greco Primary Care Physician Unavail able Cooper Eller Primary Care Provider [phone] Vladimir Greco Primary Care Physician Unavail able [...] Primary Care Unavailable SWATI DIALLO Consulting Unavailable SANDRO Dueñas, DR KELLY Cardoza [...] Unavailable MISC, DR REYEZ Consulting Unavailable SANDRO ., DR KELLY Cardoza Admitting Unavailable CALLEJAS ., ANDREW Consulting Unavailable SANDRO ., DR KELLY S Attending Unavailable RAFITA, DR GAMBOA Primary Care Unavailable TIAN ., DR KELYL Cardoza Admitting Unavailable TIAN ., DR KELLY [...] Cardoza Admitting Unavailable TIAN ., DR KELLY Carodza Consulting Unavailable RAFITA, DR GAMBOA Primary Care [...] DR KELLY Cardoza Admitting Unavailable LAKSHMIPATHY ., NARENDRANATH Attending Jeanie vailable RAFITA, DR GAMBOA Primary [...] Primary Care Unavailable Wilver Hannah Consulting Unavailable CALLEJAS ., ANDREW Attending Unavailable CALLEJAS ., ANDREW Consulting Unavailable Nikko Barbosa Consulting Unavailable MARCO ANTONIO, DR SCHULZ Admcheryle Unavailable MARCO ANTONIO, DR SCHULZ Attending Unavailable RAFITA, DR GAMBOA Primary Care Unavailable MARCO ANTONIO, DR SCHULZ Consulting Unavailable Geri Vergara MD Unavailable Geri Vergara A Attending Unavailable Himanshu, Geri A Admitting Unavailable TIAN, KELLY S Referring Unavailable Himanshu Geri A Referring Unavailable MD Gerry Jerry Admitting Unavailable Gerry Jerry Attending Unavailable Anjum Vergaraothy A Admitting Unavailable Himanshu, Geri A Referring Unavailable Geri Vergara A Attending Unavailable Himanshu, Geri A Admitting Unavailable Himanshu, Geri A Referring Unavailable Geri Vergara A Attending Unavailable Juvencio Janie Admitting Unavailable TIAN, KELLY S Referring Unavailable Janie Henning Attending Unavailable Aline TOWNSENDN-BEVELING MACHINE OPERATOR, Dee Unavailable Vladimir Jose Primary Care Physician Unava ilable Vladimir Jose Unavailable Unavailable Geri Vergara MD Unavailable [phone] Andrae Patino MD Unavailable Rafita FOSTER, Cooper Primary Care Provider KEITH GABRIEL Attending Unavailable Elvis Adame Consulting Unavailable COOPER ELLER Primary Care Unavailable KEITH GABRIEL Admitting Unavailable COOPER ELLER Primary Care Unavailable KEITH GABRIEL Admitting Unavailable KEITH GABRIEL Attending Unavailable Rafita FOSTER, Cooper Primary Care Provider Cooper Eller MD Primary Care Provider PROVIDER, UNKNOWN Attending Unavailable GERI VERGARA Referring Unavailable PROVIDER, UNKNOWN Admitting Unavailable PROVIDER, UNKNOWN Attending Unavailable GERI VERGARA Referring Unavailable PROVIDER, UNKNOWN Admitting Unavailable GERI VERGARA Attending Unavailable PROVIDER, UNKNOWN Admitting Unavailable PROVIDER, UNKNOWN Attending Unavailable PROVIDER, UNKNOWN Admitting Unavailable PROVIDER, UNKNOWN Attending Unavailable PROVIDER, UNKNOWN Admitting Unavailable GERI VERGARA ASpenser Attending Unavailable PROVIDER, UNKNOWN Admitting Unavailable PROVIDER, UNKNOWN Attending Unavailable GERI VERGARA ASpenser Referring Unavailable PROVIDER, UNKNOWN Admitting Unavailable Andrae Patino MD Attending Unavailable Rafita FOSTER, Cooper Kirby Primary Care Unavailsoraya Patino MD, Andrae Bradley Attending Unavailable Rafita FOSTER, Cooper Kirby Primary Care UnavailAndrae Porter MD Consulting Unavailable Sukumar FOSTER, Andrae Bradley Attending Unavailable Rafita FOSTER, Cooper Kirby Primary Care UnavailAndrae Porter MD Attending Unavailable Rafita FOSTER, Cooper Kirby Primary Care Unavaila COOPER Fernandes Primary Care Unavailable LAKISHA CORDOBA Attending Unavailable COOPER ELLER Referring Unavailable COOPER ELLER Referring Unavailable RAFITA, COOPER Primary Care Unavailable LAKISHA CORDOBA Attending Unavailable RAFITA, COOPER Primary Care Unavailable LAKISHA CORDOBA Referring Unavailable MARVIN II, RYLIE Brown Attending Unavailabl e MARVIN II, RYLIE Brown Admitting Unavailabl e COOPER ELLER Primary Care Unavailable MARVIN II, RYLIE Brown Referring Unavailabl e MARVIN II, RYLIE Brown Attending Unavailabl e Unavailable Primary Care Provider UnavailLISBET Torres Admitting Unavailable TERESA FAIRBANKS Referring Unavailable ANJELICA HOLLAND Consulting Unavailable JUICE MELENDEZ Attending Unavailable JEANNIE ARELLANO Consulting Unavailable STEPANIC, ., KEITH Maurice Attending Unavaila ble STEPANIC, JR., KEITH Maurice Attending Unavaila ble STEPANIC, JR., KEITH Maurice Referring Unavaila ble STEPANIC, JR., KEITH Maurice Referring Unavaila ble STEPANIC, JR., KEITH Maurice Attending Unavaila ble STEPANIC, JR., KEITH Maurice Referring Unavaila ble STEPANIC, JR., KEITH Maurice Attending Unavaila COOPER Fernandes Primary Care Unavailable PRASHANT HERNANDEZ Referring Unavailable COOPER ELLER Primary Care Unavailable PRASHANT HERNANDEZ Referring Unavailable COOPER ELLER Primary Care Unavailable GIORGIO PRASHANT W Referring Unavailable NAZEMI I, JOSE Consulting Unavailable COOPER ELLER Admitting Unavailable COOPER ELLER Attending Unavailable COOPER ELLER Primary Care Unavailable COOPER ELLER Primary Care Unavailable PRASHANT HERNANDEZ Referring Unavailable COOPER ELLER Primary Care Unavailable GIORGIO PRASHANT W Referring Unavailable Allergies Allergy Classification Reported Allergen(s) Allergy Type Date of Onset Reaction(s) Facility nickel sulfate (1 source) nickel sulfate Drug Allergy 05-22-20 Rash [facility] Opioid Agonists (1 source) Morphine Drug Allergy 05-22-20 Rash [facility] Penicillins (antibiotic) (1 source) Penicillins Drug Allergy 05-22-20 [facility]) Sulfites Substance Allergy 05-22-20 Itching, Sneezing [facility] (2 sources) Morphine; Translations: [Morphine Sulfate] Drug Allergy rash [employer] (20 sources) nickel; Translations: [Nickel] Drug Allergy 06-26-19 11 Rash, Itching (finding), Other [facility] (20 sources) Penicillins; Translations: [PENICILLINS] Allergy to substance (disorder) 04-03-20 15 Swelling [facility] (12 sources) Sulfites/Food Preservatives Allergy to substance (disorder) [facility] (20 sources) Morphine; Translations: [Morphine Sulfate] Drug Allergy 04-03-20 15 Rash, Eruption of skin (disorder), It[place] (20 sources) Sulfites; Translations: [SULFITES] Propensity to adverse reactions to drug 04-03-20 15 Other, Itching, Sneezing [place] (9 sources) Leucine Drug Allergy 06-26-19 11 [facility] (2 sources) Acetaminophen / oxyCODONE Drug Allergy 04-05-20 17 [facility] (8 sources) Penicillin; Translations: [penicillin] Drug Allergy Swelling (morphologic abnormality) [facility] (1 source) Acetaminophen / oxyCODONE Drug Allergy 04-05-20 17 [facility] (1 source) Morphine Drug Allergy 07-25-19 11 [facility] (1 source) Penicillin Drug Allergy 10-20-18 63 [facility] (1 source) Sulfites Drug allergy (disorder) 09-26-19 15 [facility] (1 source) Sulfur Based Preservatives Drug allergy Itching (finding) [facility] (1 source) Lactose; Translations: [Lactose] Drug Allergy [facility] Repository (1 source) Sulfites; Translations: [Sulfite Allergy] Propensity to adverse reactions to food (disorder) [facility] Rep[facility] (14 sources) Penicillin G Drug Allergy 03-11-20 23 Swelling [facility] (11 sources) cyclobenzaprine; Translations: [CYCLOBENZAPRINE ] Drug Allergy 04-13-20 24 [facility] Work Phone: (2 sources) Sulfites Propensity to adverse reactions to drug 10-01-19 [facility] Medications Current Medications Medication Drug Class(es) Dates Sig (Normalized) Sig (Original) acetaminophen 500 mg oral tablet (18 sources) Start: 11-24-2023 take 2 tablets by [...] (Therapy completed) take 2 tablets by mo uth once as needed hydrocodone-acetaminophen (NORCO) 5-325 mg [...] once daily atorvastatin (LIPITOR) 20 MG tablet TAKE 1 TABLET BY MOUTH EVERY DAY 90 tablet 3 09/01/2024 Active Start: 05-27-2018 End: 07-25-2021 take 1 [...] Active calcium carbonate 1500 mg oral tablet (16 sources) take 1 tablet by janie th three times daily calcium carbonate 600 MG TABS tablet Take 1 tablet by mouth 3 times daily Active take 1 tablet by janie th once daily at breakfast calcium carbonate (OS-TIP) 600 mg elemental (1,500 mg) tablet Take 1 tablet (600 mg total) by mouth daily with breakfast. Active calcium chloride 0.0014 meq/ ml / [...] take 1500 by oral route daily Carboxymethylcellulose (17 sources) Start: 11-24-2023 take 2 drop(s) into [...] 1 tablet by mouth twice daily carvedilol (COREG) 25 MG tablet TAKE 1 TABLET BY MOUTH TWICE A DAY 180 tablet 3 01/01/2025 Active Start: 01-13-2022 take 1 tablet by [...] Ordered take 1 tablet by mouth once marcello y cetirizine (ZYRTEC) 10 MG tablet Take 1 tablet by mouth daily Active cholecalciferol 0.025 mg oral tablet (20 sources) Vitamin D take 1 tablet by mouth once in the morning vitamin D (CHOLECALCIFEROL) 1000 UNIT TABS tablet Take 1 tablet by mouth in the morning and 1 tablet in the evening. Active take 1 tablet by mouth in the mo rning cholecalciferol (Vitamin D-3) 50 MCG (1999 UT) tablet Take 1 tablet by mouth in the morning. Active take 1 tablet by mouth at bedtim e cholecalciferol 1,000 units tablet Take 1 tablet (1,000 Units total) by mouth in the morning and at bedtime. Active Cholecalciferol (Vitamin D) 50 MCG (2000 UT) TABS Take by mouth. Active take [...] by mouth 2 times daily 0 Active clindamycin 150 mg oral capsule (10 sources) Lincosamide Antibacterial Start: 01-10-2025 clindamycin (CLEOCIN ) 150 MG capsule Take 4 tabs One hr prior to dental procedure 8 capsule 01/10/2025 Active Start: 07-14-2024 End: 10-03-2024 clindamycin (CLEOCIN) 150 [...] by mouth in the morning. 11/24/2023 Active estradiol 0.1 mg/ml vaginal cream (3 sources) Estrogen Start: 11-09-2024 estradiol (ESTRACE VAGINAL) 0.1 MG/GM vaginal cream insert one inch of cream inside the vagina and place an additional dime sized amount to the urethra and inner labia every night for two weeks then three nights per week thereafter. Do NOT use plastic applicator. 42.5 g 3 11/09/2024 Active Eye Multivitamin oral tablet (5 sources) [...] daily Fish Oils (17 sources) Start: 05-19-2022 [place]-3 Fish O il Daily, Refills(s) 0 Start [...] MISC (1 source) Start: 07-19-2023 Handicap Placard MISC Indications: Bursitis of left hip, unspecified bursa by Does not apply route Duration; permanent placard 1 each 07/19/2023 Active hydroCHLOROthiazide 12.5 mg oral tablet (20 sources) Thiazide Diuretic Start: 10-18-2024 take 1 tablet by mouth once daily hydroCHLOROthiazide 12.5 MG tablet Take 1 tablet by mouth daily 90 tablet 3 10/18/2024 Active Start: 05-19-2022 End: 10-03-2024 take 1 tablet by mouth once daily hydroCHLOROthiazide (HYDRODIURIL) 12.5 mg tablet Take 1 tablet (12.5 mg total) by mouth daily. 11/24/2023 10/03/2024 Discontinued (Stop Taking at Discharge) take 1 capsule by mo [facility] once daily hydroCHLOROthiazide 12.5 MG capsule Take 1 capsule by mouth daily. Active End: 05-13-2016 take 0.5 tablet by mouth once daily in the morning hydrochlorothiazide 25 mg oral tablet 05/13/2016 take 0.5 tablet by oral route once a day (in the morning) HYDROmorphone HCl PF (DILAUDID) injection 0.25 mg [...] 30 days. 237 mL 10/03/2024 11/02/2024 Active levothyroxine sodium 0.1 mg oral tablet (20 sources) l-Thyroxine Start: 05-19-2022 take 1 tablet by mouth once daily levothyroxine (SYNTHROID) 100 MCG tablet TAKE 1 TABLET BY MOUTH EVERY DAY 90 tablet 3 09/01/2024 Active Start: 05-19-2022 End: 10-03-2024 100 mcg, oral, Daily, First dose on 10/01/24 at 1000, Look-alike/sound-alike medication. Verify indication for [...] weekly Start: 05-19-2022 [facility] 100 mcg (0.1 mg) Tab 100 mcg = 1 tab(s), Oral, Daily, # 30 tab(s), Refills(s) 0 Start Date: 05/19/22 Status: Ordered Start: 05-27-2018 End: 07-25-2021 take 1 tablet by mouth in the morning levothyroxine (Synthroid, Levoxyl) 100 MCG tablet Take 100 mcg by mouth in the morning. 05/19/2022 Active lisinopril 40 mg oral tablet (20 [...] mouth daily 90 tablet 3 07/25/2021 Active meloxicam 15 mg oral tablet (20 sources) Nonsteroidal Anti-inflammatory Drug Start: 12-19-2024 take 1 tablet by mouth once daily meloxicam (MOBIC) 15 MG tablet Take 1 tablet by mouth daily 30 tablet 1 12/19/2024 Active Start: 05-19-2022 End: 10-03-2024 take 1 tablet by mouth in the morning MOBIC 15 mg tablet Take 1 tablet (15 mg total) by mouth in the morning. 04/17/2024 10/03/2024 Discontinued (Stop Taking at Discharge) take 0.5 tablet by m out once daily meloxicam (Mobic) 15 MG tablet Take 0.5 tablets by mouth daily. Active metFORMIN hydrochloride 500 mg oral tablet (20 sources) Biguanide Start: 10-18-2024 take 1 tablet by mouth twice daily metFORMIN (GLUCOPHAGE) 500 MG tablet Indications: Type 2 diabetes mellitus without complication, without long-term current use of insulin (HCC) Take 1 tablet by mouth 2 times daily 180 tablet 3 10/18/2024 Active Start: 09-17-2021 take 1 tablet by [...] 180 tablet 4 08/29/2019 Active Start: 05-27-2018 End: 10-03-2024 take 1 tablet by mouth in the morning metFORMIN (Glucophage) 500 MG tablet Take 500 mg by mouth in the morning and 500 mg in the evening. Take with meals. 05/19/2022 Active Multivitamin preparation (5 sources) Start: 05-19-2022 multivitamin D aily, Refill(s) 0 Start Date: 05/19/22 Status: Ordered Nasacort Allergy 24HR (5 sources) Start: 05-19-2022 Nasacort Aller gy 24HR Daily, Refill(s) 0 Start Date: 05/19/22 Status: Ordered NONFORMULARY (13 sources) take 1 tablet by mouth once [...] both eyes by ophthalmic route once daily [place] 3-6-9 Fatty Acids (TRI PLE OMEGA COMPLEX PO) (14 sources) [place] 3-6-9 Fatt y Acids (TRIPLE OMEGA COMPLEX PO) Take by mouth. Active [place] 3-6-9 Fatty Acids (TRI PLE OMEGA-3-6-9 ORAL) (20 sources) [place] 3-6-9 Fatt y Acids (TRIPLE OMEGA-3-6-9 ORAL) Take by mouth. Active [place] 3-6-9 Fatt y Acids (TRIPLE OMEGA-3-6-9 ORAL) Take by mouth. 0 Suspended [place] 3-6-9 Fatt y Acids (TRIPLE OMEGA-3-6-9 ORAL) Take by mouth. 0 Active omega-3 acid ethyl esters (fpc) 1000 mg oral capsule (2 sources) take 2 capsules by mouth once daily omega-3 acid ethyl esters 1 g capsule Take 2 capsules by mouth daily. Active [place]-3 Fatty Acids (OMEGA 3 PO) (8 sources) take 1 tablet by mouth once daily [place]-3 Fatty Acids (OMEGA 3 PO) Take 1 tablet by mouth daily 0 Active omeprazole 40 mg delayed release oral capsule (7 sources) Proton Pump Inhibitor Start: 10-18-2024 take 1 capsule by mouth once daily omeprazole (PRILOSEC) 40 MG delayed release capsule Take 1 capsule by mouth daily 90 capsule 3 10/18/2024 Active take 1 capsule by mo uth before mealtime omeprazole (PriLOSEC) [address] capsule Take 10 mg by mouth in the morning. Take before meals. Do not crush or chew. Active End: 10-03-2024 take 1 capsule by mouth once daily before breakfast omeprazole (PriLOSEC) 40 mg capsule Take 1 capsule (40 mg total) by mouth every morning before breakfast. 10/03/2024 Discontinued (Stop Taking at Discharge) pantoprazole 40 mg delayed release oral tablet (4 sources) Proton Pump Inhibitor Start: 10-03-2024 End: 11-02-2024 take 1 tablet by mouth at bedtime [...] Starting on Wed09/28/24 at 1415, Until Discontinued polyethylene glycol 3350 09614 mg powder for oral solution (3 sources) Osmotic Laxative take 1 dose by mouth once daily as needed for constipation polyethylene glycol (GLYCOLAX) 17 g packet Take 1 packet by mouth daily as needed for Constipation Active 28-0.8 MG tablet (14 sources) 28-0.8 MG tablet 1 (one) time each day at the same time. Active Vit-Fe Fumarate-FA ( VITAMIN PO) (15 sources) Vit-Fe Fumarate-FA ( VITAMIN PO) Take [...] Status: Ordered Probiotic Product (PROBIOTIC BLEND PO) (14 sources) Probiotic Produc t (PROBIOTIC BLEND PO) as directed Orally Active Probiotic Product (PROBIOTIC PO) (9 sources) take 1 tablet by mouth once [...] 30 days. 30 tablet 10/03/2024 11/02/2024 Active Triamcinolone (20 sources) Corticosteroid triamcinolone (Nasacort Allergy 24HR) [...] 0 Active ubidecarenone 60 mg oral capsule (6 sources) take 1 tablet by janie th once daily coenzyme Q10 60 MG CAPS Take 1 tablet by mouth daily Active take 1 tablet by janie th once in the morning ubidecarenone (coenzyme Q10) 60 mg capsu le Take 1 tablet by mouth in the morning. Active ubidecarenone 100 mg / vitam in e 5 unt oral capsule (20 sources) [...] End: 10-03-2024 take 1 tablet by mouth twice daily ursodiol (ACTIGALL) 500 MG tablet Take 1 tablet by mouth 2 times daily 10/25/2021 Active Start: 07-02-2021 take 3 capsules [...] (20 sources) Angiotensin 2 Receptor Walker Start: 11-22-2024 take 1 tablet by mouth once daily valsartan (DIOVAN) 320 MG tablet Take 1 tablet by mouth daily 90 tablet 3 11/22/2024 Active Start: 11-10-2022 End: 10-03-2024 take 1 tablet by mouth in the morning valsartan (Diovan) 320 MG tablet Take 320 mg by mouth in the morning. 11/10/2022 Active take 2 tablets by [facility] once daily Valsartan 160 MG tablet Take 2 tablets [...] route daily Calcium Gluconate (1 source) Start: 2024 End: 2024 calcium gluconate IVPB 1000 mg/50 mL (20 mg/mL premix) co Q10-red yeast rice 60-600 mg oral capsule (1 source) End: 2017 take 1 capsule by mouth once daily co Q10-red yeast rice 60-600 mg oral capsule 02/01/2018 take 1 capsule by oral route daily coenzyme q10 60 mg / red yeast rice 600 mg oral capsule (11 sources) End: 2017 take 1 capsule by mouth once daily co Q10-red yeast rice 60-600 mg oral capsule 02/01/2018 take 1 capsule by oral route daily cyclobenzaprine hydrochloride 10 mg oral tablet (10 sources) Muscle Relaxant Start: 2022 End: 2023 take 1 tablet by mouth three times daily as needed cyclobenzaprine (FLEXERIL) 10 MG tablet Take 1 Tablet by mouth 3 times daily as needed. 90 Tablet 3 06/17/2023 04/13/2024 Discontinued cycloSPORINE 0.5 mg/ml ophthalmic suspension (20 sources) Calcineurin Inhibitor Immunosuppressant Start: 2024 take 1 drop(s) into the eye(s) twice daily 1 drop, Ophthalmic, 2 TIMES DAILY RESP, First dose (after last reorder) on Renee 09/28/24 at 2200, Until Discontinued, Please select [...] day 30 minutes before meals estrogens, conjugated (fpc) 0.625 mg/ml vaginal cream (12 sources) Estrogen [...] mg/dL after initial treatment, repeat treatment. glucosamin-chond -[id number] Oral (12 sources) End: 06-12-2013 glucosamin-katlyn [id number] Oral 06/12/2013 50 ml glucose 500 mg/ml [...] IV push; maximum rate: 5 mg/minute. hydroCHLOROthiazide 25 mg / losartan potassium 100 mg oral tablet (12 sources) Thiazide Diuretic, Angiotensin 2 Receptor Walker End: 11-27-2014 take 1 tablet by mouth once daily losartan-hydrochlorothi azide 100-25 mg oral tablet 11/27/2014 take 1 tablet by oral route once daily hypromellose 5 mg/ml ophthalmic solution (1 source) Start: 10-02-2024 End: 10-03-2024 ibuprofen 200 mg oral tablet (1 source) Nonsteroidal Anti-inflammat ory Drug End: 11-29-2023 take 1 tablet by [...] by oral route 2 times a day loratadine 10 mg oral tablet (1 source) Start: 10-02-2024 End: 10-03-2024 take 10 mg by mouth once daily 10 mg, oral, Daily, First dose on Wed10/02/24 at 1715, Look-alike/sound-sanket e medication - verify indication for use. Suprep [...] Start: 01-09-2020 take 2 tablets by mo [facility] once daily Ocaliva 5 mg oral tablet 01/09/2020 TAKE 2 TABLET DAILY. Start: 08-29-2019 Obeticholic Ac id (OCALIVA) 5 MG TABS 5 mg daily 30 tablet 0 08/29/2019 Active Start: 03-24-2018 take 1 tablet by janie once daily Ocaliva 5 mg oral tablet 01/24/2019 TAKE 1 TABLET DAILY. [place]-3 350 mg-235 mg- 90 mg-597 mg oral capsule,delayed release(DR/EC) (12 sources) take 1 capsule by mouth once daily [place]-3 350 mg-235 mg- 90 mg-597 mg oral capsule,delayed release(DR/EC) take 1 capsule by oral route daily 2 ml ondansetron 2 mg/ml injection (3 sources) Serotonin-3 Receptor Antagonist Start: 09-29-19 4 mg, IntraVENous, EVERY 6 HOURS PRN, Starting on Wed09/28/24 at 1400, Until Discontinued, Nausea, Vomiting Start: [...] Eyes, 2 TIMES DAILY, First dose on Renee 09/28/24 at 2100, Until Discontinued, Substituted for cycloSPORINE [...] ete kaleb min 2 tablets daily- eye drSpenser Sodium Chloride (20 sources) Start: 09-30-2024 End: [...] of order. Start: 09-28-2024 Start: 09-28-2024 End: 09-30-2024 take 1 mL intravenously every hour IntraVENous, at 125 mL/hr, CONTINUOUS, Starting on Wed09/28/24 at 1415, For 48 hours, Maintenance IV [...] Date Documented Da te Episodic/Chronic Abdominal pain (9 sources) Acute abdominal pain; Translations: [Unspecified abdominal pain] Onset: 09-28-2024 09-28-2024 Episodic Acute posthemorrhagic anemia (3 sources) Acute posthemorrhagic anemia; Translations: [Acute posthemorrhagic anemia] Onset: 09-29-2024 10-03-2024 Episodic Deficiency and other anemia (2 sources) Iron deficiency anemia; Translations: [Iron deficiency anemia, unspecified] 10-03-2024 Episodic Deficiency and other anemia (1 source) Iron deficiency anemia, unspecified; Translations: [Iron deficiency anemia, unspecified] Onset: 09-29-2024 Episodic Diabetes mellitus without complication (20 sources) Type 2 diabetes mellitus; Translations: [Type 2 diabetes mellitus without complication] Onset: 05-19-2016 Resolved: 04-03-2015 04-03-2015 Chronic Disorders of lipid metabolism (20 sources) Other and unspecified hyperlipidemia; Translations: [Mixed hyperlipidemia] Onset: 05-19-2016 Resolved: 04-03-2015 05-19-2016 Chronic Essential hypertension (20 sources) Essential hypertension; Translations: [Hypertensive disorder] Onset: 05-08-2015 Resolved: 04-03-2015 05-08-2015 Chronic Genitourinary symptoms and ill-defined conditions (20 sources) Mixed urinary incontinence; Translations: [Incontinence] Onset: 02-12-2016 04-06-2016 Chronic Menopausal disorders (4 sources) Unspecified menopausal and postmenopausal disorder; Translations: [Menopausal and female climacteric states] Onset: 01-09-2020 Chronic Osteoarthritis (1 source) Unilateral primary osteoarthritis, left knee; Translations: [UNI PRIM OSTEOARTHRITIS LT KNEE] Onset: 10-15-2021 Chronic Other connective tissue disease (1 source) Presence of left artificial knee joint; Translations: [PRESENCE LEFT ARTIFICIAL KNEE JOINT] Onset: 11-26-2021 Chronic Other connective tissue disease (6 sources) History of repair of hip joint; Translations: [Presence of left artificial hip joint] 03-20-2024 Chronic Other diseases of bladder and urethra (2 sources) Bladder muscle dysfunction - overactive; Translations: [OAB (overactive bladder)] Onset: 02-12-2016 04-06-2016 Chronic Other diseases of bladder and urethra (20 sources) Overactive bladder; Translations: [Overactive bladder] Onset: 02-12-2016 04-06-2016 Chronic Other gastrointestinal disorders (1 source) Splenomegaly; Translations: [Splenomegaly, not elsewhere classified] 11-29-2023 Episodic Other liver diseases (20 sources) Biliary cirrhosis Onset: 01-26-2014 Chronic Other liver diseases (20 sources) Primary biliary cholangitis; Translations: [Primary biliary cirrhosis] Onset: 05-24-2003 02-25-2018 Chronic Other liver diseases (20 sources) Primary biliary cirrhosis; Translations: [PRIMARY BILIARY CIRRHOSIS] Onset: 11-27-2014 Chronic Other liver diseases (1 source) Hepatic fibrosis; Translations: [Liver fibrosis] 12-07-2023 Chronic Other lower respiratory disease (2 sources) Snoring; Translations: [Snoring] 02-13-2025 Episodic Other lower respiratory disease (1 source) Snoring; Translations: [Snoring] Onset: 02-13-2025 Episodic Other nervous system disorders (1 source) Other chronic pain; Translations: [OTHER CHRONIC PAIN] Onset: 03-25-2022 Chronic Other nervous system disorders (3 sources) Spinal cord disease; Translations: [Disease of spinal cord, unspecified] 10-26-2022 Chronic Other nervous system disorders (2 sources) Disorder of nervous system; Translations: [Other specified disorders of central nervous system] 03-22-2023 Episodic Other non-traumatic joint disorders (6 sources) Pain in left knee; Translations: [Pain in joint, lower leg] Onset: 11-19-2021 Episodic Other non-traumatic joint disorders (6 sources) Hip pain; Translations: [Pain in left hip] 02-02-2024 Episodic Other non-traumatic joint disorders (2 sources) Pain in right knee; Translations: [Pain in joint, lower leg] 01-03-2025 Episodic Other nutritional; endocrine; and metabolic disorders (2 sources) Body mass index 30+ - obesity; Translations: [Body mass index (BMI) 30.0-30.9, adult] 03-23-2023 Chronic Other nutritional; endocrine; and metabolic disorders (2 sources) Obese class I; Translations: [Obesity, unspecified] Onset: 05-22-2020 05-22-2020 Chronic Residual codes; unclassified (2 sources) Sleep apnea; Translations: [Sleep apnea, unspecified] 02-13-2025 Chronic Residual codes; unclassified (1 source) Sleep apnea, unspecified; Translations: [Sleep apnea, unspecified] Onset: 02-13-2025 Chronic Residual codes; unclassified (2 sources) History of surgical procedure on cervical spine; Translations: [Other specified postprocedural states] 04-22-2023 Episodic Residual codes; unclassified (1 source) Pain, unspecified; Translations: [Pain, unspecified] Onset: 09-30-2024 Episodic Spondylosis; intervertebral disc disorders; other back problems (20 sources) Other spondylosis with radiculopathy, lumbar region; Translations: [Sacroiliitis, not elsewhere classified] Onset: 02-19-2022 Chronic Spondylosis; intervertebral disc disorders; other back problems (16 sources) Spinal stenosis of lumbar region; Translations: [Spinal stenosis, lumbar region without neurogenic claudication] Onset: 04-06-2022 Episodic Thyroid disorders (20 sources) Thyrotoxicosis without mention of goiter or other cause, and without mention of thyrotoxic crisis or storm; Translations: [Hypothyroidism] Onset: 02-26-2017 02-26-2017 Chronic Unclassified (4 sources) LOW BACK PAIN, UNSPECIFIED; Translations: [LOW BACK PAIN, UNSPECIFIED] Onset: 03-05-2022 Unclassified (1 source) Hepatic fibrosis, unspecified; Translations: [Hepatic fibrosis, unspecified] Onset: 09-20-2024 Past or Other Problems Problem Classification Problem Date Documented Da te Episodic/Chronic Calculus of urinary tract (1 source) Kidney stone; Translations: [Renal stones] Episodic Gastrointestinal hemorrhage (14 sources) Gastrointestinal hemorrhage; Translations: [Hemorrhage of anus and rectum] Onset: 09-29-2024 Episodic Genitourinary symptoms and ill-defined conditions (8 sources) Urgent desire to urinate; Translations: [Increased frequency of urination] Onset: 4 Episodic Mood disorders (2 sources) Mood disorders Onset: 5 09-30-2024 Other connective tissue disease (4 sources) Other muscle spasm; Translations: [OTHER MUSCLE SPASM] Onset: 2 Episodic Other connective tissue disease (4 sources) Pain in right foot; Translations: [PAIN IN RIGHT FOOT] Onset: 2 Episodic Other connective tissue disease (1 source) Pain in left foot; Translations: [PAIN IN LEFT FOOT] Onset: 2 Episodic Other diseases of kidney and ureters (18 sources) Unspecified disorder of kidney and ureter Onset: 5 Episodic Other diseases of kidney and ureters (6 sources) Disorder of kidney and ureter, unspecified Onset: 5 Episodic Other gastrointestinal disorders (1 source) Diarrhea, unspecified; Translations: [DIARRHEA UNSPECIFIED] Onset: 2 Episodic Other gastrointestinal disorders (2 sources) Splenomegaly, not elsewhere classified; Translations: [Splenomegaly, not elsewhere classified] Onset: 4 Episodic Other screening for suspected conditions (not mental disorders or infectious disease) (10 sources) Encounter for screening mammogram for malignant neoplasm of breast; Translations: [Electrocardiogram abnormal] Onset: 2 Episodic Residual codes; unclassified (1 source) Family history of malignant neoplasm of other organs or systems; Translations: [FAM HX MALIG NEOPLASM OTH ORGN/SYS] Onset: 2 Episodic Residual codes; unclassified (10 sources) History of major orthopedic surgery; Translations: [Other specified postprocedural states] Onset: 3 04-03-2023 Episodic Shock (5 sources) Hypovolemic shock; Translations: [Hypovolemic shock] Onset: 5 Resolved: 5 09-29-2024 Episodic Unclassified (1 source) LOW BACK PAIN, UNSPECIFIED; Translations: [LOW BACK PAIN, UNSPECIFIED] Onset: 2 Unclassified (10 sources) Onset: 2 Resolved: 4 03-24-2024 Unclassified (1 source) Hepatic fibrosis, unspecified; Translations: [Hepatic fibrosis, unspecified] Onset: 5 Results Test Name Value Interpretation Reference Range Facility BUN & Creatinineon 5 Creatinine [Mass/Vol] 1.4 mg/dL High 0.50 - 0.90 mg/dL [facility] Est, Glom Filt Rate 40 Low - [facility] Comment on above: These results [...] following therapy that affects renal tubular secretion. Interpretation and review of laboratory results Abnormal [facility] Urea nitrogen [Mass/Vol] 38 mg/dL High 8 - 23 mg/dL [facility] BUN + Creatinineon 5 Creatinine [Mass/Vol] 1.4 mg/dL High 0.50-0.90 [facility] Comment on above: Performed By: #### L ACDS #### [facility] [address] [place] [address] Education Program Associate: Wilver Calvillo MD GFR/1.73 sq M.predicted among non-blacks MDRD (S/P/Bld) [Vol rate/Area] 40 mL/min/{1.73_m2} Low >60 [facility] Comment on above: Result Comment: These [...] affects renal tubular secretion. Performed By: #### L ACDS #### [facility] [address] [place] [address] Education Program Associate: Wilver Calvillo MD Urea nitrogen [Mass/Vol] 38 mg/dL High 8-23 [facility] Comment on above: Performed By: #### L ACDS #### [facility] [address] [place] [address] Education Program Associate: Wilver Calvillo MD CT UROGRAMon 02-14-2025 CT UROGRAM EXAMINATION: CT UROGRAM 02/14/2025 2:47 pm TECHNIQUE: CT of the abdomen and pelvis was performed before and after the administration of intravenous contrast as per CT urogram protocol. Multiplanar reformatted images as well as MIP urogram images are provided for review. Dose modulation, iterative reconstruction, and/or weight based adjustment of the mA/kV was utilized to reduce the radiation dose to as low as reasonably achievable. COMPARISON: CT scan dated September 28, 2024 HISTORY: ORDERING SYSTEM PROVIDED HISTORY: Mixed incontinence FINDINGS: Lower Chest: A densely calcified granuloma is again demonstrated within the left lung base. No focal area of consolidation is present. Cardiomegaly is noted, with coronary arterial calcifications. Small pericardial effusion is noted. Kidneys and Urinary Tract: Simple appearing cortical cyst formation is noted on the kidneys bilaterally. Largest cyst is within the lower pole of the right kidney, and measures 5.7 cm. No routine follow-up imaging is recommended. Unenhanced images demonstrate a punctate calculus within the upper pole collecting system of the right kidney, and lower pole portion of the left collecting system. Postcontrast images demonstrate the nephrogram to be symmetric bilaterally. No evidence of hydronephrosis is present. Ureters are nondilated. Urinary bladder wall appears diffusely thickened, with a mild degree of surrounding inflammation suggesting cystitis. Bladder is incompletely distended. This does limit evaluation for cystitis. Organs: Liver is again noted to be cirrhotic in morphology. Splenomegaly is present, secondary to portal hypertension. Cholelithiasis is present without evidence of cholecystitis. Adenomatous thickening of the adrenal glands is again demonstrated. No suspicious adrenal nodules are present. No acute abnormalities present involving the pancreas. GI/Bowel: Small hiatal hernia is noted. Circumferential wall thickening is present involving the GE junction distal esophagus. Enlarged lymph nodes are present adjacent to the distal esophagus, largest measuring 12 x 10 mm. Endoscopy is recommended to further evaluate the distal esophagus and GE junction, light of the adjacent enlarged lymph nodes. No evidence of small-bowel obstruction is present. Scattered colonic diverticula are present without evidence of diverticulitis. A 1.3 cm lipoma or ingested piece of fat is present within the right colon. Pelvis: The uterus is surgically absent. Urinary bladder is incompletely distended. Bladder wall appears thickened, with surrounding inflammation, suggesting cystitis. Peritoneum/Retroperiton eum: No evidence of aneurysm formation is present. Recannulization of the paraumbilical vein is demonstrated, multiple varices present within the upper abdomen. Small amount of free fluid is present within the pelvis. No free air is noted. Scattered mesenteric lymph nodes are present and are nonspecific. Bones/Soft Tissues: Grade 1 degenerative anterolisthesis is present at the L4-5 level. Osteopenia is noted. No acute or aggressive osseous abnormality is present. Patient is status post prior total left hip arthroplasty. Focal hernia defect is present involving the inferolateral left abdominal wall, with fat herniating through the defect within the abdominal wall musculature. Cutaneous varices are present within the lower anterior abdominal wall. IMPRESSION: 1. Punctate nonobstructing calculus within the upper pole collecting system of the right kidney, and lower pole portion of the left collecting system. 2. Urinary bladder wall appears diffusely thickened, with a mild degree of surrounding inflammation suggesting cystitis. 3. Cirrhotic morphology of the liver, with splenomegaly, and multiple varices within the upper abdomen. Findings were noted previously 4. Cholelithiasis without evidence of cholecystitis. 5. Small hiatal hernia. Circumferential wall thickening is present involving the GE junction distal esophagus. Enlarged lymph nodes are present adjacent to the distal esophagus, largest measuring 12 x 10 mm. Endoscopy is recommended to further evaluate the distal esophagus and GE junction, light of the adjacent enlarged lymph nodes. 6. Scattered colonic diverticula without evidence of diverticulitis. 7. Focal hernia defect involving the inferolateral left abdominal wall, with fat herniating through the defect within the abdominal wall musculature. 8. Cardiomegaly with coronary arterial calcifications. Small pericardial effusion. Interpreted by: Joesph Peck DO Signed by: Joesph Peck DO 02/14/25 Final result Normal [facility] Urinalysis w/ Microon 2024 Bacteria 1+ Abnormal NONE [facility] Comment on above: Performed By: #### L ACDS #### [facility] [address] [place], [place] [id number] Education Program Associate: Wilver Calvillo MD Bilirubin, SemiQt,Ur Negative Normal NEG [facility] Comment on above: Performed By: #### L ACDS #### [facility] [address] [place], [place] [phone] Education Program Associate: Wilver Calvillo MD Blood, Urine 3+ Abnormal NEG [facility] Comment on above: Performed By: #### L ACDS #### [facility] [address] [place], [place] [phone] Education Program Associate: Wilver Calvillo MD Clarity (U) Cloudy Abnormal CLEAR [facility] Comment on above: Performed By: #### L ACDS #### [facility] [address] [place] [address] [address] [place], [place] [phone] Education Program Associate: Wilver Calvillo MD Color (U) Brown Abnormal YEL [facility] Comment on above: Performed By: #### L ACDS #### [facility] [address] [place] [address] [address] [place], [place] [phone] Education Program Associate: Wilver Calvillo MD Epithelial cells LM Ql (Urine sed) 0 TO 2 Normal 0-25 [facility] Comment on above: Performed By: #### L ACDS #### [facility] [address] [place] [address] [address] [place], [place] [phone] Education Program Associate: Wilver Calvillo MD Epithelial, Renal 0 TO 2 Normal 0 [facility] Comment on above: Performed By: #### L ACDS #### [facility] [address] [place], [place] [phone] Education Program Associate: Wilver Calvillo MD Glucose Ql (U) Negative Normal NEG [facility] Comment on above: Performed By: #### L ACDS #### [facility] [address] [place], [place] [phone] Education Program Associate: Wilver Calvillo MD Ketones Ql (U) TRACE Abnormal NEG [facility] Comment on above: Performed By: #### L ACDS #### [facility] [address] [place], [place] [phone] Education Program Associate: Wilver Calvillo MD Leukocyte esterase Test strip Ql (U) SMALL Abnormal NEG [facility] Comment on above: Performed By: #### L ACDS #### [facility] [address] [place], [place] [phone] Education Program Associate: Wilver Calvillo MD Nitrite,Ur Negative Normal NEG [facility] Comment on above: Performed By: #### L ACDS #### [facility] [address] [place], [place] [phone] Education Program Associate: Wilver Calvillo MD PH,Ur 5.5 Normal 5.0-9.0 [facility] Comment on above: Performed By: #### L ACDS #### [facility] [address] [place], [place] [phone] Education Program Associate: Wilver Calvillo MD Protein Ql (U) 2+ mg/dL Abnormal NEG [facility] Comment on above: Performed By: #### L ACDS #### [facility] [address] [place], [place] [phone] Education Program Associate: Wilver Calvillo MD Spec. [place],Ur 1.025 High 1.010-1.020 [facility] Comment on above: Performed By: #### L ACDS #### [facility] [address] [place], [place] [phone] Education Program Associate: Wilver Calvillo MD Urine RBC's 50 TO 100 Normal 0-2 [facility] Comment on above: Performed By: #### L ACDS #### [facility] [address] [place] [address] Education Program Associate: Wilver Calvillo MD Urine WBC's 10 TO 20 Normal 0-5 [facility] Comment on above: Performed By: #### L ACDS #### [facility] [address] [place] [address] Education Program Associate: Wilver Calvillo MD Urobilinogen,Ur Normal Normal 0.0-1.0 [facility] Comment on above: Performed By: #### L ACDS #### [facility] [address] [place] [address] Education Program Associate: Wilver Calvillo MD Urinalysis with Microscopico n 02-14-2025 Bacteria LM Ql (Urine sed) 1+ Abnormal None [facility] Bilirubin Ql (U) Negative NEGATIVE [facility] Clarity (U) Cloudy Abnormal Clear [facility] Color (U) Brown Abnormal Yellow [facility] Epithelial cells LM.HPF (Urine sed) [#/Area] 0 TO 2 [facility] Glucose Test strip (U) [Mass/Vol] Negative NEGATIVE mg/dL [facility] Hemoglobin Auto test strip Ql (U) 3+ Abnormal NEGATIVE [facility] Interpretation and review of laboratory results Abnormal [facility] Ketones (U) [Mass/Vol] TRACE Abnormal NEGATIVE mg/dL [facility] Leukocyte esterase Test strip Ql (U) SMALL Abnormal NEGATIVE [facility] Nitrite Ql (U) Negative NEGATIVE [facility] pH (U) 5.5 [pH] 5.0 - 9.0 [facility] Protein (U) [Mass/Vol] 2+ Abnormal NEGATIVE mg/dL [facility] RBC LM.HPF (Urine sed) [#/Area] 50 TO 100 [facility] Renal Epithelial, UA 0 TO 2 0 /HPF [facility] Specific gravity (U) [Rel density] 1.025 High 1.010 - 1.020 [facility] Urobilinogen Qn (U) Normal 0.0 - 1. 0 EU/dL [facility] WBC LM.HPF (Urine sed) [#/Area] 10 TO 20 [facility] Cult,Urineon 02-07-2025 Cult,Urine Specimen Description .CLEAN CATCH URINE Special Requests Site: Urine Culture NO SIGNIFICANT GROWTH Report Status FINAL 02/07/2025 Normal [facility] Comment on above: Performed By: #### U RC #### [facility] [address], [place] [id number] Education Program Associate: Beto Farah MD [facility] [address] [place] [address] Education Program Associate: Wilver Calvillo MD Urinalysis w/ Microon 2024 Bacteria 1+ Abnormal NONE [facility] Comment on above: Performed By: #### U AMIC #### [facility] [address] [place] [address] [place] [address] Education Program Associate: Wilver Calvillo MD Bilirubin, SemiQt,Ur Negative Normal NEG [facility] Comment on above: Performed By: #### U AMIC #### [facility] [address] [place] [address] Education Program Associate: Wilver Calvillo MD Blood, Urine Negative Normal NEG [facility] Comment on above: Performed By: #### U AMIC #### [address] [place] [address] Education Program Associate: Wilver Calvillo MD Clarity (U) SLIGHTLY CLOUDY Abnormal CLEAR [facility] Comment on above: Performed By: #### U AMIC #### [facility] [address] [place] [address] [place] [address] Education Program Associate: Wilver Calvillo MD Color (U) Yellow Normal YEL [facility] Comment on above: Performed By: #### U AMIC #### [facility] [address] [place] [address] Education Program Associate: Wilver Calvillo MD Epithelial cells LM Ql (Urine sed) 10 TO 20 Normal 0-25 [facility] Comment on above: Performed By: #### U AMIC #### [facility] [address] [place] [address] [place] [address] Education Program Associate: Wilver Calvillo MD Glucose Ql (U) Negative Normal NEG [facility] Comment on above: Performed By: #### U AMIC #### [facility] [address] [place] [address] [place], [place] [phone] Education Program Associate: Wilver Calvillo MD Ketones Ql (U) Negative Normal NEG [facility] Comment on above: Performed By: #### U AMIC #### [facility] [address] [place] [address] [place], [place] [phone] Education Program Associate: Wilver Calvillo MD Leukocyte esterase Test strip Ql (U) TRACE Abnormal NEG [facility] Comment on above: Performed By: #### U AMIC #### [facility] [address] [place] [address] [place], [place] [phone] Education Program Associate: Wilver Calvillo MD Mucus Strands TRACE Abnormal NONE [facility] Comment on above: Performed By: #### U AMIC #### [facility] [address] [place] [address] [place], [place] [phone] Education Program Associate: Wilver Calvillo MD Nitrite,Ur Negative Normal NEG [facility] Comment on above: Performed By: #### U AMIC #### [facility] [address] [place] [address] [address] [place], [place] [phone] Education Program Associate: Wilver Calvillo MD PH,Ur 5.5 Normal 5.0-9.0 [facility] Comment on above: Performed By: #### U AMIC #### [facility] [address] [place] [address] [place], [place] [phone] Education Program Associate: Wilver Calvillo MD Protein Ql (U) Negative Normal NEG [facility] Comment on above: Performed By: #### U AMIC #### [facility] [address] [place] [address] [place] [place], [place] [phone] Education Program Associate: Wilver Calvillo MD Spec. [place],Ur 1.020 Normal 1.010-1.020 [facility] Comment on above: Performed By: #### U AMIC #### [facility] [address] [place], [place] [phone] Education Program Associate: Wilver Calvillo MD Urine RBC's None Normal 0-2 [facility] Comment on above: Performed By: #### U AMIC #### [facility] [address] [place], [place] [phone] Education Program Associate: Wilver Calvillo MD Urine WBC's 5 TO 10 Normal 0-5 [facility] Comment on above: Performed By: #### U AMIC #### [facility] [address] [place] [address] [place] [place], [place] [phone] Education Program Associate: Wilver Calvillo MD Urobilinogen,Ur Normal Normal 0.0-1.0 [facility] [place] Comment on above: Performed By: #### U AMIC #### [facility] [address] [place] [address] [place], [place] [phone] Education Program Associate: Wilver Calvillo MD Yeast PRESENCE NOTED Abnormal NONE [facility] Comment on above: Performed By: #### U AMIC #### [facility] [address] [place] [address] [place], [place] [phone] Education Program Associate: Wilver Calvillo MD Urinalysis with Microscopico n 02-06-2025 Bacteria LM Ql (Urine sed) 1+ Abnormal None [facility] Bilirubin Ql (U) Negative NEGATIVE [facility] Clarity (U) SLIGHTLY CLOUDY Abnormal Clear [facility] Color (U) Yellow Yellow [facility] Epithelial cells LM.HPF (Urine sed) [#/Area] 10 TO 20 [facility] (U) [Mass/Vol] Negative NEGATIVE mg/dL [facility] Hemoglobin Auto test strip Ql (U) Negative NEGATIVE [facility] Interpretation and review of laboratory results Abnormal [facility] Ketones (U) [Mass/Vol] Negative NEGATIVE mg/dL [facility] Leukocyte esterase Test strip Ql (U) TRACE Abnormal NEGATIVE [facility] Mucus Ql (Urine sed) TRACE Abnormal None [facility] Nitrite Ql (U) Negative NEGATIVE [facility] pH (U) 5.5 [pH] 5.0 - 9.0 [facility] Protein (U) [Mass/Vol] Negative NEGATIVE mg/dL [facility] RBC LM.HPF (Urine sed) [#/Area] None [facility] Specific gravity (U) [Rel density] 1.020 1.010 - 1.020 [facility] Urobilinogen Qn (U) Normal 0.0 - 1. 0 EU/dL [facility] WBC LM.HPF (Urine sed) [#/Area] 5 TO 10 [facility] Yeast LM Ql (Urine sed) PRESENCE NOTED Abnormal None [facility] No Panel Informationon 01-03 Radiology Study observation (narrative) [email or web address] - [facility] 3 Viewson 12-22 Imaging Result: AP and lateral of left hip showed acceptable position and alignment of left total hip arthroplasty. There was no evidence of loosening of the acetabular cup or femoral stem. Femoral head was well centered in the acetabular liner without evidence of asymmetric or accelerated wear. There was no gross evidence of fracture and/or dislocation. Impression: Unremarkable left total hip arthroplasty. [facility] Radiology Study observation (narrative) [email or web address] - left 1 or 2 Viewso n 01-03-2025 Imaging Result: AP and lateral of left [...] dislocation. Impression: Unremarkable left total knee arthroplasty. [email or web address] - right 1 or 2 Views on 01-03-2025 Imaging Result: AP and lateral of right [...] dislocation. Impression: Unremarkable right total knee arthroplasty. [facility] BASIC METABOLIC PANELon 05- Anion gap [Moles/Vol] 6 mmol/L Normal 5-[address] [facility] Comment on above: Performed By: #### C BCA #### [facility] ([facility]) [address] [place] [address] VIR Calcium [Mass/Vol] 8.2 mg/dL Low 8.5-10.5 [facility] Comment on above: Performed By: #### C BCA #### [facility] ([facility]) [address] [address] VIR Chloride [Moles/Vol] 111 mmol/L High 98-[address] [facility] Comment on above: Performed By: #### C BCA #### [facility] ([facility]) [address] [place] [address] VIR CO2 [Moles/Vol] 22 mmol/L Normal 22-[address] [facility] Comment on above: Performed By: #### C BCA #### [facility] ([facility]) [address] [address] VIR Creatinine [Mass/Vol] 0.90 mg/dL Normal 0.40-1.[address] [facility] Comment on above: Result Comment: METH OD TRACEABLE TO IDMS STANDARD Performed By: #### C BCA #### [facility] ([facility]) [address] [address] VIR GFR/1.73 sq M.predicted among non-blacks MDRD (S/P/Bld) [Vol rate/Area] 67 mL/min/{1.73_m2} Normal >=[address] [facility] Comment on above: Result Comment: Repo rted eGFR is based on the CKD-EPI 2020 equation that does not use a race coefficient. Performed By: #### C BCA #### [facility] ([facility]) [address] [place] [address] VIR Glucose [Mass/Vol] 165 mg/dL High 65-99 [facility] Comment on above: Performed By: #### C BCA #### [facility] ([facility]) [address] [place] [address] VIR Potassium [Moles/Vol] 4.2 mmol/L Normal 3.5-5.[address] [facility] Comment on above: Performed By: #### C BCA #### [facility] ([facility]) [address] [place] [address] VIR Sodium [Moles/Vol] 139 mmol/L Normal 134-146 [facility] Comment on above: Performed By: #### C BCA #### [facility] ([facility]) [address] [place] [address] VIR Urea nitrogen [Mass/Vol] 22 mg/dL Normal 5-[address] [facility] Comment on above: Performed By: #### C BCA #### [facility] ([facility]) [address] [place] [address] VIR BEDSIDE GLUCOSEon 10-03-2024 Glucose [Mass/Vol] 203 mg/dL High 65-99 [facility] Comment on above: Performed By: #### C BCA #### [facility] ([facility]) [address] [place] [address] VIR Glucose [Mass/Vol] 245 mg/dL High 65-99 [facility] Comment on above: Performed By: #### C BCA #### [facility] ([facility]) [address] [place] [address] VIR Basic Metabolic Panelon 09-21 Anion gap [Moles/Vol] 6 mmol/L 5 - 15 mmol/L [facility] Calcium [Mass/Vol] 8.2 mg/dL Low 8.5 - 10. 5 mg/dL [facility] Chloride [Moles/Vol] 111 mmol/L High 98 - 109 mmol/L [facility] CO2 [Moles/Vol] 22 mmol/L 22 - 32 mmol/L [facility] Creatinine [Mass/Vol] 0.9 mg/dL 0.40 - 1.00 mg/dL [facility] Comment on above: METHOD TRACEABLE TO IDPR STANDARD EGFR Non-Race Dependent 67 - PINF [facility] Comment on above: Reported eGFR is bas ed on the CKD-EPI 2020 equation that does not use a race coefficient. Glucose [Mass/Vol] 165 mg/dL High 65 - 99 mg/dL [facility] Interpretation and review of laboratory results Abnormal [facility] Potassium [Moles/Vol] 4.2 mmol/L 3.5 - 5.0 mmol/L [facility] Sodium [Moles/Vol] 139 mmol/L 134 - 146 mmol/L [facility] Urea nitrogen [Mass/Vol] 22 mg/dL 5 - 27 mg/dL [facility] Bedside Glucose *Place/Obtai n serum glucose if >500 per glucometer.on 10-03-2024 Glucose [Mass/Vol] 203 mg/dL High 65 - 99 mg/dL [facility] Interpretation and review of laboratory results Abnormal [facility] Glucose [Mass/Vol] 245 mg/dL High 65 - 99 mg/dL [facility] Interpretation and review of laboratory results Abnormal [facility] CBC WITH AUTO DIFFERENTIALon 10-03-2024 BASOPHILS ABSOLUTE COUNT (10*3/UL) BY AUTOMATED COUNT 0.0 10*3/uL Normal 0.0-0.[address] [facility] Comment on above: Performed By: #### C BCA #### [facility] ([facility]) [address] [place] [address] VIR BASOPHILS RELATIVE PERCENT BY AUTOMATED COUNT 1.2 % Normal [facility] Comment on above: Performed By: #### C BCA #### [facility] ([facility]) [address] [place] [address] VIR CELLAVISION DIFFERENTIAL TYPE AUTOMATED DIFFERENTIAL Normal [facility] Comment on above: Performed By: #### C BCA #### [facility] ([facility]) [address] [place] [address] VIR Eosinophils (Bld) [#/Vol] 0.1 10*3/uL Normal 0.0-0.[address] [facility] Comment on above: Performed By: #### C BCA #### [facility] ([facility]) [address] [place] [address] VIR EOSINOPHILS RELATIVE PERCENT BY AUTOMATED COUNT 4.3 % Normal [facility] Comment on above: Performed By: #### C BCA #### [facility] ([facility]) [address] [place] [address] VIR Erythrocyte distribution width (RBC) [Ratio] 15.0 % Normal 11.5-[address] [facility] Comment on above: Performed By: #### C BCA #### [facility] ([facility]) [address] [place] [address] VIR Hematocrit (Bld) [Volume fraction] 26.8 % Low 35-[address] [facility] Comment on above: Performed By: #### C BCA #### [facility] ([facility]) [address] [place] [address] VIR Hemoglobin (Bld) [Mass/Vol] 9.1 g/dL Low 11.7-15.[address] [facility] Comment on above: Performed By: #### C BCA #### [facility] ([facility]) [address] [place] [address] VIR LYMPHOCYTES ABSOLUTE COUNT (10*3/UL) BY AUTOMATED COUNT 0.8 10*3/uL Low 1.0-3.[address] [facility] Comment on above: Performed By: #### C BCA #### [facility] ([facility]) [address] [place] [address] VIR LYMPHOCYTES RELATIVE PERCENT BY AUTOMATED COUNT 23.3 % Normal [facility] Comment on above: Performed By: #### C BCA #### [facility] ([facility]) [address] [place] [address] VIR MCH (RBC) [Entitic mass] 29.7 pg Normal 27-[address] [facility] Comment on above: Performed By: #### C BCA #### [facility] ([facility]) [address] [place] [address] VIR MCHC (RBC) [Mass/Vol] 33.9 g/dL Normal 32-[address] [facility] Comment on above: Performed By: #### C BCA #### [facility] ([facility]) [address] [place] [address] VIR MCV (RBC) [Entitic vol] 88 fL Normal 80-[address] [facility] Comment on above: Performed By: #### C BCA #### [facility] ([facility]) [address] [place] [address] VIR MONOCYTES ABSOLUTE COUNT (10*3/UL) BY AUTOMATED COUNT 0.4 10*3/uL Normal 0.0-0.[address] [facility] Comment on above: Performed By: #### C BCA #### [facility] ([facility]) [address] [place] [address] VIR MONOCYTES RELATIVE PERCENT BY AUTOMATED COUNT 11.2 % Normal [facility] Comment on above: Performed By: #### C BCA #### [facility] ([facility]) [address] [place] [address] VIR NEUTROPHILS ABSOLUTE COUNT BY AUTOMATED COUNT 2.1 10*3/uL Normal 1.5-6.[address] [facility] Comment on above: Performed By: #### C BCA #### [facility] ([facility]) [address] [place] [address] VIR NEUTROPHILS RELATIVE PERCENT BY AUTOMATED COUNT 60.0 % Normal [facility] Comment on above: Performed By: #### C BCA #### [facility] ([facility]) [address] [place] [address] VIR Platelet mean volume (Bld) [Entitic vol] 8.9 fL Normal 7-[address] [facility] Comment on above: Performed By: #### C BCA #### [facility] ([facility]) [address] [place] [address] VIR Platelets (Bld) [#/Vol] 99 10*3/uL Low 150-[address] [facility] Comment on above: Performed By: #### C BCA #### [facility] ([facility]) [address] [place] [address] VIR RBC COUNT 3.06 X10E12/L Low 3.8-5.[address] [facility] Comment on above: Performed By: #### C BCA #### [facility] ([facility]) [address] [place] [address] VIR WBC (Bld) [#/Vol] 3.4 10*3/uL Low 4-11 [facility] Comment on above: Performed By: #### C BCA #### [facility] ([facility]) [address] [place] [address] VIR CBC auto differentialon 05 Basophils (Bld) [#/Vol] 0 10*3/uL 0.0 - 0.2 10*3/uL [facility] Basophils/100 WBC (Bld) 1.2 % [facility] Differential cell count method Nom (Bld) AUTOMATED DIFFERENTIAL [facility] Eosinophils (Bld) [#/Vol] 0.1 10*3/uL 0.0 - 0.4 10*3/uL [facility] Eosinophils/100 WBC (Bld) 4.3 % [facility] Erythrocyte distribution width (RBC) [Ratio] 15 % 11.5 - 15 % [facility] Hematocrit (Bld) [Volume fraction] 26.8 % Low 35 - 47 % [facility] Hemoglobin (Bld) [Mass/Vol] 9.1 g/dL Low 11.7 - 15.5 g/dL [facility] Interpretation and review of laboratory results Abnormal [facility] Lymphocytes (Bld) [#/Vol] 0.8 10*3/uL Low 1.0 - 3.5 10*3/uL [facility] Lymphocytes/100 WBC (Bld) 23.3 % [facility] MCH (RBC) [Entitic mass] 29.7 pg 27 - 34 pg [facility] MCHC (RBC) [Mass/Vol] 33.9 g/dL 32 - 36 g/dL [facility] MCV (RBC) [Entitic vol] 88 fL 80 - 100 fL [facility] Monocytes (Bld) [#/Vol] 0.4 10*3/uL 0.0 - 0.9 10*3/uL [facility] Monocytes/100 WBC (Bld) 11.2 % [facility] Neutrophils (Bld) [#/Vol] 2.1 10*3/uL 1.5 - 6.6 10*3/uL [facility] Neutrophils/100 WBC (Bld) 60 % [facility] Platelet mean volume (Bld) [Entitic vol] 8.9 fL 7 - 12 fL [facility] Platelets (Bld) [#/Vol] 99 10*3/uL Low [facility] RBC (Bld) [#/Vol] 3.06 10*6/uL Low [facility] WBC LM Ql (Sput) 3.4 Low [facility] Cult, Bloodon 10-03-2024 Cult, Blood Specimen Description .BLOOD Special Requests rfa, 2ml Culture NO GROWTH 5 DAYS Report Status FINAL 10/03/2024 [facility] Comment on above: Performed By: #### B CUL2 #### [facility] [address] [place] [address] Education Program Associate: Wilver Calvillo MD Cult,Bloodon 10-03-2024 Cult,Blood Specimen Description .BLOOD Special Requests 20ml, rac Culture NO GROWTH 5 DAYS Report Status FINAL 10/03/2024 [facility] Comment on above: Performed By: #### B C #### [facility] [address] [place] [address] Education Program Associate: Wilver Calvillo MD BEDSIDE GLUCOSEon 10-02-2024 Glucose [Mass/Vol] 202 mg/dL High 65-99 [facility] Comment on above: Performed By: #### C BCA #### [facility] ([facility]) [address] [place] [address] VIR Bedside Glucose *Place/Obtai n serum glucose if >500 per glucometer.on 10-02-2024 Glucose [Mass/Vol] 202 mg/dL High 65 - 99 mg/dL [facility] Interpretation and review of laboratory results Abnormal [facility] CBC WITH AUTO DIFFERENTIALon 10-02-2024 BASOPHILS ABSOLUTE COUNT (10*3/UL) BY AUTOMATED COUNT 0.0 10*3/uL Normal 0.0-0.[address] [facility] Comment on above: Performed By: #### P TT #### [facility] ([facility]) [address] [place] [address] VIR BASOPHILS RELATIVE PERCENT BY AUTOMATED COUNT 0.7 % Normal [facility] Comment on above: Performed By: #### P TT #### [facility] ([facility]) [address] [place] [address] VIR CELLAVISION DIFFERENTIAL TYPE AUTOMATED DIFFERENTIAL Normal [facility] Comment on above: Performed By: #### P TT #### [facility] ([facility]) [address] [place] [address] VIR Eosinophils (Bld) [#/Vol] 0.2 10*3/uL Normal 0.0-0.[address] [facility] Comment on above: Performed By: #### P TT #### [facility] ([facility]) [address] [place] [address] VIR EOSINOPHILS RELATIVE PERCENT BY AUTOMATED COUNT 4.6 % Normal [facility] Comment on above: Performed By: #### P TT #### [facility] ([facility]) [address] [place] [address] VIR Erythrocyte distribution width (RBC) [Ratio] 15.3 % High 11.5-[address] [facility] Comment on above: Performed By: #### P TT #### [facility] ([facility]) [address] [place] [address] VIR Hematocrit (Bld) [Volume fraction] 26.5 % Low 35-[address] [facility] Comment on above: Performed By: #### P TT #### [facility] ([facility]) [address] [place] [address] VIR Hemoglobin (Bld) [Mass/Vol] 9.1 g/dL Low 11.7-15.[address] [facility] Comment on above: Performed By: #### P TT #### [facility] ([facility]) [address] [place] [address] VIR LYMPHOCYTES ABSOLUTE COUNT (10*3/UL) BY AUTOMATED COUNT 0.7 10*3/uL Low 1.0-3.[address] [facility] Comment on above: Performed By: #### P TT #### [facility] ([facility]) [address] [place] [address] VIR LYMPHOCYTES RELATIVE PERCENT BY AUTOMATED COUNT 21.4 % Normal [facility] Comment on above: Performed By: #### P TT #### [facility] ([facility]) [address] [place] [address] VIR MCH (RBC) [Entitic mass] 30.1 pg Normal 27-[address] [facility] Comment on above: Performed By: #### P TT #### [facility] ([facility]) [address] [place] [address] VIR MCHC (RBC) [Mass/Vol] 34.3 g/dL Normal 32-[address] [facility] Comment on above: Performed By: #### P TT #### [facility] ([facility]) [address] [place] [address] VIR MCV (RBC) [Entitic vol] 88 fL Normal 80-[address] [facility] Comment on above: Performed By: #### P TT #### [facility] ([facility]) [address] [place] [address] VIR MONOCYTES ABSOLUTE COUNT (10*3/UL) BY AUTOMATED COUNT 0.4 10*3/uL Normal 0.0-0.[address] [facility] Comment on above: Performed By: #### P TT #### [facility] ([facility]) [address] [place] [address] VIR MONOCYTES RELATIVE PERCENT BY AUTOMATED COUNT 12.6 % Normal [facility] Comment on above: Performed By: #### P TT #### [facility] ([facility]) [address] [place] [address] VIR NEUTROPHILS ABSOLUTE COUNT BY AUTOMATED COUNT 2.1 10*3/uL Normal 1.5-6.[address] [facility] Comment on above: Performed By: #### P TT #### [facility] ([facility]) [address] [place] [address] VIR NEUTROPHILS RELATIVE PERCENT BY AUTOMATED COUNT 60.7 % Normal [facility] Comment on above: Performed By: #### P TT #### [facility] ([facility]) [address] [place] [address] VIR Platelet mean volume (Bld) [Entitic vol] 9.1 fL Normal 7-[address] [facility] Comment on above: Performed By: #### P TT #### [facility] ([facility]) [address] [place] [address] VIR Platelets (Bld) [#/Vol] 97 10*3/uL Low 150-[address] [facility] Comment on above: Performed By: #### P TT #### [facility] ([facility]) [address] [place] [address] VIR RBC COUNT 3.01 X10E12/L Low 3.8-5.[address] [facility] Comment on above: Performed By: #### P TT #### [facility] ([facility]) [address] [place] [address] VIR WBC (Bld) [#/Vol] 3.5 10*3/uL Low 4-11 [facility] Comment on above: Performed By: #### P TT #### [facility] ([facility]) [address] [place] [address] VIR CBC auto differentialon 09-21 Basophils (Bld) [#/Vol] 0 10*3/uL 0.0 - 0.2 10*3/uL [facility] Basophils/100 WBC (Bld) 0.7 % [facility] Differential cell count method Nom (Bld) AUTOMATED DIFFERENTIAL [facility] Eosinophils (Bld) [#/Vol] 0.2 10*3/uL 0.0 - 0.4 10*3/uL [facility] Eosinophils/100 WBC (Bld) 4.6 % [facility] Erythrocyte distribution width (RBC) [Ratio] 15.3 % High 11.5 - 15 % [facility] Hematocrit (Bld) [Volume fraction] 26.5 % Low 35 - 47 % [facility] Hemoglobin (Bld) [Mass/Vol] 9.1 g/dL Low 11.7 - 15.5 g/dL [facility] Interpretation and review of laboratory results Abnormal [facility] Lymphocytes (Bld) [#/Vol] 0.7 10*3/uL Low 1.0 - 3.5 10*3/uL [facility] Lymphocytes/100 WBC (Bld) 21.4 % [facility] MCH (RBC) [Entitic mass] 30.1 pg 27 - 34 pg [facility] MCHC (RBC) [Mass/Vol] 34.3 g/dL 32 - 36 g/dL [facility] MCV (RBC) [Entitic vol] 88 fL 80 - 100 fL [facility] Monocytes (Bld) [#/Vol] 0.4 10*3/uL 0.0 - 0.9 10*3/uL [facility] Monocytes/100 WBC (Bld) 12.6 % [facility] Neutrophils (Bld) [#/Vol] 2.1 10*3/uL 1.5 - 6.6 10*3/uL [facility] Neutrophils/100 WBC (Bld) 60.7 % [facility] Platelet mean volume (Bld) [Entitic vol] 9.1 fL 7 - 12 fL [facility] Platelets (Bld) [#/Vol] 97 10*3/uL Low [facility] RBC (Bld) [#/Vol] 3.01 10*6/uL Low [facility] WBC LM Ql (Sput) 3.5 Low [facility] COMPREHENSIVE METABOLIC PANE [place] 10-02-2024 Albumin [Mass/Vol] 2.9 g/dL Low 3.2-5.3 [facility] Comment on above: Performed By: #### P TT #### [facility] ([facility]) [address] [place] [address] VIR ALP [Catalytic activity/Vol] 119 U/L Normal 39-[address] [facility] Comment on above: Performed By: #### P TT #### [facility] ([facility]) [address] [place] [address] VIR ALT [Catalytic activity/Vol] 28 U/L Normal <=[address] [facility] Comment on above: Performed By: #### P TT #### [facility] ([facility]) [address] [place] [address] VIR Anion gap [Moles/Vol] 8 mmol/L Normal 5-[address] [facility] Comment on above: Performed By: #### P TT #### [facility] ([facility]) [address] [place] [address] VIR AST [Catalytic activity/Vol] 30 U/L Normal <=[address] [facility] Comment on above: Performed By: #### P TT #### [facility] ([facility]) [address] [place] [address] VIR Bilirubin [Mass/Vol] 0.6 mg/dL Normal 0.3-1.[address] [facility] Comment on above: Performed By: #### P TT #### [facility] ([facility]) [address] [place] [address] VIR Calcium [Mass/Vol] 8.3 mg/dL Low 8.5-10.5 [facility] Comment on above: Performed By: #### P TT #### [facility] ([facility]) [address] [place] [address] VIR Chloride [Moles/Vol] 113 mmol/L High 98-[address] [facility] Comment on above: Performed By: #### P TT #### [facility] ([facility]) [address] [place] [address] VIR CO2 [Moles/Vol] 20 mmol/L Low 22-[address] [facility] Comment on above: Performed By: #### P TT #### [facility] ([facility]) [address] [place] [address] VIR Creatinine [Mass/Vol] 0.97 mg/dL Normal 0.40-1.[address] [facility] Comment on above: Result Comment: METH OD TRACEABLE TO IDMS STANDARD Performed By: #### P TT #### [facility] ([facility]) [address] [place] [address] VIR GFR/1.73 sq M.predicted among non-blacks MDRD (S/P/Bld) [Vol rate/Area] 61 mL/min/{1.73_m2} Normal >=[address] [facility] Comment on above: Result Comment: Repo rted eGFR is based on the CKD-EPI 2020 equation that does not use a race coefficient. Performed By: #### P TT #### [facility] ([facility]) [address] [place] [address] VIR Glucose [Mass/Vol] 215 mg/dL High 65-99 [facility] Comment on above: Performed By: #### P TT #### [facility] ([facility]) [address] [place] [address] VIR Potassium [Moles/Vol] 4.2 mmol/L Normal 3.5-5.[address] [facility] Comment on above: Performed By: #### P TT #### [facility] ([facility]) [address] [place] [address] VIR Protein [Mass/Vol] 5.4 g/dL Low 6.0-8.0 [facility] Comment on above: Performed By: #### P TT #### [facility] ([facility]) [address] [place] [address] VIR Sodium [Moles/Vol] 141 mmol/L Normal 134-146 [facility] Comment on above: Performed By: #### P TT #### [facility] ([facility]) [address] [place] [address] VIR Urea nitrogen [Mass/Vol] 28 mg/dL High 5-[address] [facility] Comment on above: Performed By: #### P TT #### [facility] ([facility]) [address] [place] [address] VIR Comprehensive metabolic pane arley 10-02-2024 Albumin [Mass/Vol] 2.9 g/dL Low 3.2 - 5.3 g/dL [facility] ALP [Catalytic activity/Vol] 119 U/L 39 - 130 U/L [facility] ALT No additional P-5'-P [Catalytic activity/Vol] 28 U/L NINF - 31 U/L [facility] Anion gap [Moles/Vol] 8 mmol/L 5 - 15 mmol/L [facility] AST [Catalytic activity/Vol] 30 U/L NINF - 41 U/L [facility] Bilirubin [Mass/Vol] 0.6 mg/dL 0.3 - 1.2 mg/dL [facility] Calcium [Mass/Vol] 8.3 mg/dL Low 8.5 - 10. 5 mg/dL [facility] Chloride [Moles/Vol] 113 mmol/L High 98 - 109 mmol/L [facility] CO2 [Moles/Vol] 20 mmol/L Low 22 - 32 mmol/L [facility] Creatinine [Mass/Vol] 0.97 mg/dL 0.40 - 1.00 mg/dL [facility] Comment on above: METHOD TRACEABLE TO IDMS STANDARD EGFR Non-Race Dependent 61 - PINF [facility] Comment on above: Reported eGFR is bas ed on the CKD-EPI 2020 equation that does not use a race coefficient. Glucose [Mass/Vol] 215 mg/dL High 65 - 99 mg/dL [facility] Interpretation and review of laboratory results Abnormal [facility] Potassium [Moles/Vol] 4.2 mmol/L 3.5 - 5.0 mmol/L [facility] Protein [Mass/Vol] 5.4 g/dL Low 6.0 - 8.0 g/dL [facility] Sodium [Moles/Vol] 141 mmol/L 134 - 146 mmol/L [facility] Urea nitrogen [Mass/Vol] 28 mg/dL High 5 - 27 mg/dL [facility] Imtiaz 10-02-2024 Christina Noland DO - 10/02/[address] [facility] Patient Name: Ashlee Banerjee Procedure Date: 10/02/2024 1:24 PM CSN: [id number] Date of : 1950 Admit Type: Inpatient Age: 73 Room: [place] [address] Gender: Female Note Status: Finalized Attending MD: [...] a recent colonoscopy. - Follow-up with primary disability coordinator at [facility] for further management of underlying liver disease. Procedure Code(s): --- Professional --- 80880, Esophagogastroduodenosc opy, flexible, transoral; diagnostic, including collection of specimen(s) by brushing or washing, when performed (separate procedure) Diagnosis Code(s): --- Professional --- K76.6, Portal hypertension K31.89, Other diseases of stomach and duodenum K92.1, Melena (includes Hematochezia) CPT copyright 2022 [employer]. All rights reserved. The codes documented in this report are preliminary and upon librarian school review may be revised to meet current compliance requirements. Thomas Ridley, 10/02/2024 2:57:29 PM This report has been signed electronically. Number of Addenda: 0 Note Initiated On: 10/02/2024 1:24 PM [facility] EGD Study observationon 09-21 This order has been auto-finalized for image and report archival in PACs. *For full report details, please reach out to your physician. This image is visible to you in MyChart.* [facility] FOLATEon 10-02-2024 FOLIC ACID 18.6 ng/mL Normal >5.[address] [facility] Comment on above: Performed By: #### P TT #### [facility] ([facility]) [address] [place] [address] VIR Folateon 10-02-2024 Folate [Mass/Vol] 18.6 ng/mL 5.8 - PINF ng/mL [facility] Interpretation and review of laboratory results Normal [facility] HEMOGLOBIN A1Con 10-02-2024 Glucose [Mass/Vol] 134 mg/dL Normal [facility] Comment on above: Performed By: #### P TT #### [facility] ([facility]) [address] [place] [address] VIR HbA1c (Bld) [Mass fraction] 6.3 % High 4.4-5.[address] [facility] Comment on above: Result Comment: ADA Guidelines Result HgbA1c Normal : less than 5.7 % Prediabetes : 5.7 % to 6.4 % Diabetes : > 6.4 % Use with caution in patients with abnormal hemoglobin variants as the half-life of red blood cells and in vivo glycation rates are affected. Performed By: #### P TT #### [facility] ([facility]) [address] [place] [address] VIR Hemoglobin A1con 10-02-2024 Average glucose Estimated from glycated hemoglobin (Bld) [Mass/Vol] 134 mg/dL [facility] HbA1c (Bld) [Mass fraction] 6.3 % High 4.4 - 5.6 % [facility] Comment on above: ADA Guidelines Result HgbA1c Normal : less than 5.7 % Prediabetes : 5.7 % to 6.4 % Diabetes : > 6.4 % Use with caution in patients with abnormal hemoglobin variants as the half-life of red blood cells and in vivo glycation rates are affected. Interpretation and review of laboratory results Abnormal [facility] IONIZED MAGNESIUMon 10-03-19 25 Magnesium [Moles/Vol] 0.63 mmol/L Normal 0.45-0.[address] [facility] Comment on above: Performed By: #### P TT #### [facility] ([facility]) [address] [place] [address] VIR IRON AND TIBCon 10-02-2024 Iron [Mass/Vol] 28 ug/dL Low 50-[address] [facility] Comment on above: Performed By: #### P TT #### [facility] ([facility]) [address] [place] [address] VIR IRON BINDING 328 ug/dL Normal 250-[address] [facility] Comment on above: Performed By: #### P TT #### [facility] ([facility]) [address] [place] [address] VIR IRON SATURATION 9 % SATURATION Low 15-50 [facility] Comment on above: Performed By: #### P TT #### [facility] ([facility]) [address] [place] [address] VIR Transferrin [Mass/Vol] 234 mg/dL Normal 168-[address] [facility] Comment on above: Performed By: #### P TT #### [facility] ([facility]) [address] [place] [address] VIR Ionized magnesiumon 10-03-19 Interpretation and review of laboratory results Normal [facility] Magnesium Ionized ISE (Bld) [Moles/Vol] 0.63 mmol/L 0.45 - 0.74 mmol/L [facility] Iron and TIBCon 10-02-2024 Interpretation and review of laboratory results Abnormal [facility] Iron [Mass/Vol] 28 ug/dL Low 50 - 170 ug/dL [facility] Iron binding capacity [Mass/Vol] 328 ug/dL 250 - 425 ug/dL [facility] Iron saturation [Mass fraction] 9 Low [facility] Transferrin [Mass or moles/Vol] 234 mg/dL 168 - 336 mg/dL [facility] MAGNESIUMon 10-02-2024 Magnesium [Mass/Vol] 1.8 mg/dL Normal 1.8-2.[address] [facility] Comment on above: Performed By: #### P TT #### [facility] ([facility]) [address] [place] [address] VIR Magnesiumon 10-02-2024 Interpretation and review of laboratory results Normal [facility] Magnesium [Mass/Vol] 1.8 mg/dL 1.8 - 2.6 mg/dL [facility] No Panel Informationon 10-02 [facility] THYROID PROFILE INCLUDES TSH FT4on 10-02-2024 Free T4 [Mass/Vol] 0.94 ng/dL Normal 0.61-1.60 [facility] Comment on above: Performed By: #### P TT #### [facility] ([facility]) [address] [place] [address] VIR TSH 5.65 uIU/mL High 0.49-4.[address] [facility] Comment on above: Performed By: #### P TT #### [facility] ([facility]) [address] [place] [address] VIR Thyroid profile includes TSH FT4on 10-02-2024 Free T4 [Mass/Vol] 0.94 ng/dL 0.61 - 1. 60 ng/dL [facility] Interpretation and review of laboratory results Abnormal [facility] TSH Qn 5.65 m[IU]/L High [facility] VITAMIN B12on 10-02-2024 Cobalamin (Vitamin B12) [Mass/Vol] pg/mL High 180-[address] [facility] Comment on above: Performed By: #### C BCA #### [facility] ([facility]) [address] [place] [address] VIR Vitamin B12on 10-02-2024 Cobalamin (Vitamin B12) [Mass/Vol] pg/mL High 180 - 914 pg/mL [facility] Interpretation and review of laboratory results Abnormal [facility] CBC WITH AUTO DIFFERENTIALon 10-01-2024 BASOPHILS ABSOLUTE COUNT (10*3/UL) BY AUTOMATED COUNT 0.0 10*3/uL Normal 0.0-0.[address] [facility] Comment on above: Performed By: #### P INR #### [facility] ([facility]) [address] [place] [address] VIR BASOPHILS RELATIVE PERCENT BY AUTOMATED COUNT 0.7 % Normal [facility] Comment on above: Performed By: #### P INR #### [facility] ([facility]) [address] [place] [address] VIR CELLAVISION DIFFERENTIAL TYPE AUTOMATED DIFFERENTIAL Normal [facility] Comment on above: Performed By: #### P INR #### [facility] ([facility]) [address] [place] [address] VIR Eosinophils (Bld) [#/Vol] 0.2 10*3/uL Normal 0.0-0.[address] [facility] Comment on above: Performed By: #### P INR #### [facility] ([facility]) [address] [place] [address] VIR EOSINOPHILS RELATIVE PERCENT BY AUTOMATED COUNT 4.4 % Normal [facility] Comment on above: Performed By: #### P INR #### [facility] ([facility]) [address] [place] [address] VIR Erythrocyte distribution width (RBC) [Ratio] 15.7 % High 11.5-[address] [facility] Comment on above: Performed By: #### P INR #### [facility] ([facility]) [address] [place] [address] VIR Hematocrit (Bld) [Volume fraction] 26.3 % Low 35-[address] [facility] Comment on above: Performed By: #### P INR #### [facility] ([facility]) [address] [place] [address] VIR Hemoglobin (Bld) [Mass/Vol] 8.9 g/dL Low 11.7-15.[address] [facility] Comment on above: Performed By: #### P INR #### [facility] ([facility]) [address] [place] [address] VIR LYMPHOCYTES ABSOLUTE COUNT (10*3/UL) BY AUTOMATED COUNT 0.8 10*3/uL Low 1.0-3.[address] [facility] Comment on above: Performed By: #### P INR #### [facility] ([facility]) [address] [place] [address] VIR LYMPHOCYTES RELATIVE PERCENT BY AUTOMATED COUNT 23.0 % Normal [facility] Comment on above: Performed By: #### P INR #### [facility] ([facility]) [address] [place] [address] VIR MCH (RBC) [Entitic mass] 29.9 pg Normal 27-[address] [facility] Comment on above: Performed By: #### P INR #### [facility] ([facility]) [address] [place] [address] VIR MCHC (RBC) [Mass/Vol] 34.0 g/dL Normal 32-[address] [facility] Comment on above: Performed By: #### P INR #### [facility] ([facility]) [address] [place] [address] VIR MCV (RBC) [Entitic vol] 88 fL Normal 80-[address] [facility] Comment on above: Performed By: #### P INR #### [facility] ([facility]) [address] [place] [address] VIR MONOCYTES ABSOLUTE COUNT (10*3/UL) BY AUTOMATED COUNT 0.4 10*3/uL Normal 0.0-0.[address] [facility] Comment on above: Performed By: #### P INR #### [facility] ([facility]) [address] [place] [address] VIR MONOCYTES RELATIVE PERCENT BY AUTOMATED COUNT 10.4 % Normal [facility] Comment on above: Performed By: #### P INR #### [facility] ([facility]) [address] [place] [address] VIR NEUTROPHILS ABSOLUTE COUNT BY AUTOMATED COUNT 2.1 10*3/uL Normal 1.5-6.[address] [facility] Comment on above: Performed By: #### P INR #### [facility] ([facility]) [address] [place] [address] VIR NEUTROPHILS RELATIVE PERCENT BY AUTOMATED COUNT 61.5 % Normal [facility] Comment on above: Performed By: #### P INR #### [facility] ([facility]) [address] [place] [address] VIR Platelet mean volume (Bld) [Entitic vol] 9.6 fL Normal 7-[address] [facility] Comment on above: Performed By: #### P INR #### [facility] ([facility]) [address] [place] [address] VIR Platelets (Bld) [#/Vol] 86 10*3/uL Low 150-[address] [facility] Comment on above: Performed By: #### P INR #### [facility] ([facility]) [address] [place] [address] VIR RBC COUNT 2.99 X10E12/L Low 3.8-5.[address] [facility] Comment on above: Performed By: #### P INR #### [facility] ([facility]) [address] [place] [address] VIR WBC (Bld) [#/Vol] 3.5 10*3/uL Low 4-11 [facility] Comment on above: Performed By: #### P INR #### [facility] ([facility]) [address] [place] [address] VIR CBC auto differentialon 09-21 Basophils (Bld) [#/Vol] 0 10*3/uL 0.0 - 0.2 10*3/uL [facility] Basophils/100 WBC (Bld) 0.7 % [facility] Differential cell count method Nom (Bld) AUTOMATED DIFFERENTIAL [facility] Eosinophils (Bld) [#/Vol] 0.2 10*3/uL 0.0 - 0.4 10*3/uL [facility] Eosinophils/100 WBC (Bld) 4.4 % [facility] Erythrocyte distribution width (RBC) [Ratio] 15.7 % High 11.5 - 15 % [facility] Hematocrit (Bld) [Volume fraction] 26.3 % Low 35 - 47 % [facility] Hemoglobin (Bld) [Mass/Vol] 8.9 g/dL Low 11.7 - 15.5 g/dL [facility] Interpretation and review of laboratory results Abnormal [facility] Lymphocytes (Bld) [#/Vol] 0.8 10*3/uL Low 1.0 - 3.5 10*3/uL [facility] Lymphocytes/100 WBC (Bld) 23 % [facility] MCH (RBC) [Entitic mass] 29.9 pg 27 - 34 pg [facility] MCHC (RBC) [Mass/Vol] 34 g/dL 32 - 36 g/dL [facility] MCV (RBC) [Entitic vol] 88 fL 80 - 100 fL [facility] Monocytes (Bld) [#/Vol] 0.4 10*3/uL 0.0 - 0.9 10*3/uL [facility] Monocytes/100 WBC (Bld) 10.4 % [facility] Neutrophils (Bld) [#/Vol] 2.1 10*3/uL 1.5 - 6.6 10*3/uL [facility] Neutrophils/100 WBC (Bld) 61.5 % [facility] Platelet mean volume (Bld) [Entitic vol] 9.6 fL 7 - 12 fL [facility] Platelets (Bld) [#/Vol] 86 10*3/uL Low [facility] RBC (Bld) [#/Vol] 2.99 10*6/uL Low [facility] WBC LM Ql (Sput) 3.5 Low [facility] COMPREHENSIVE METABOLIC PANE [place] 10-01-2024 Albumin [Mass/Vol] 2.9 g/dL Low 3.2-5.3 [facility] [place] [facility] Comment on above: Performed By: #### P INR #### [facility] ([facility]) [address] [place] [address] VIR ALP [Catalytic activity/Vol] 113 U/L Normal 39-[address] [facility] Comment on above: Performed By: #### P INR #### [facility] ([facility]) [address] [place] [address] VIR ALT [Catalytic activity/Vol] 32 U/L High <=[address] [facility] Comment on above: Performed By: #### P INR #### [facility] ([facility]) [address] [place] [address] VIR Anion gap [Moles/Vol] 7 mmol/L Normal 5-[address] [facility] Comment on above: Performed By: #### P INR #### [facility] ([facility]) [address] [place] [address] VIR AST [Catalytic activity/Vol] 30 U/L Normal <=[address] [facility] Comment on above: Performed By: #### P INR #### [facility] ([facility]) [address] [place] [address] VIR Bilirubin [Mass/Vol] 0.9 mg/dL Normal 0.3-1.[address] [facility] Comment on above: Performed By: #### P INR #### [facility] ([facility]) [address] [place] [address] VIR Calcium [Mass/Vol] 8.4 mg/dL Low 8.5-10.5 [facility] Comment on above: Performed By: #### P INR #### [facility] ([facility]) [address] [place] [address] VIR Chloride [Moles/Vol] 114 mmol/L High 98-[address] [facility] Comment on above: Performed By: #### P INR #### [facility] ([facility]) [address] [place] [address] VIR CO2 [Moles/Vol] 19 mmol/L Low 22-[address] [facility] Comment on above: Performed By: #### P INR #### [facility] ([facility]) [address] [place] [address] VIR Creatinine [Mass/Vol] 1.09 mg/dL High 0.40-1.[address] [facility] Comment on above: Result Comment: METH OD TRACEABLE TO IDMS STANDARD Performed By: #### P INR #### [facility] ([facility]) [address] [place] [address] VIR GFR/1.73 sq M.predicted among non-blacks MDRD (S/P/Bld) [Vol rate/Area] 53 mL/min/{1.73_m2} Low >=[address] [facility] Comment on above: Result Comment: Repo rted eGFR is based on the CKD-EPI 2020 equation that does not use a race coefficient. Performed By: #### P INR #### [facility] ([facility]) [address] [place] [address] VIR Glucose [Mass/Vol] 125 mg/dL High 65-99 [facility] Comment on above: Performed By: #### P INR #### [facility] ([facility]) [address] [place] [address] VIR Potassium [Moles/Vol] 4.1 mmol/L Normal 3.5-5.[address] [facility] Comment on above: Performed By: #### P INR #### [facility] ([facility]) [address] [place] [address] VIR Protein [Mass/Vol] 5.2 g/dL Low 6.0-8.0 [facility] Comment on above: Performed By: #### P INR #### [facility] ([facility]) [address] [place] [address] VIR Sodium [Moles/Vol] 140 mmol/L Normal 134-146 [facility] Comment on above: Performed By: #### P INR #### [facility] ([facility]) [address] [place] [address] VIR Urea nitrogen [Mass/Vol] 37 mg/dL High 5-[address] [facility] Comment on above: Performed By: #### P INR #### [facility] ([facility]) [address] [place] [address] VIR Comprehensive metabolic pane arley 10-01-2024 Albumin [Mass/Vol] 2.9 g/dL Low 3.2 - 5.3 g/dL [facility] ALP [Catalytic activity/Vol] 113 U/L 39 - 130 U/L [facility] ALT No additional P-5'-P [Catalytic activity/Vol] 32 U/L High NINF - 31 U/L [facility] Anion gap [Moles/Vol] 7 mmol/L 5 - 15 mmol/L [facility] AST [Catalytic activity/Vol] 30 U/L NINF - 41 U/L [facility] Bilirubin [Mass/Vol] 0.9 mg/dL 0.3 - 1.2 mg/dL [facility] Calcium [Mass/Vol] 8.4 mg/dL Low 8.5 - 10. 5 mg/dL [facility] Chloride [Moles/Vol] 114 mmol/L High 98 - 109 mmol/L [facility] CO2 [Moles/Vol] 19 mmol/L Low 22 - 32 mmol/L [facility] Creatinine [Mass/Vol] 1.09 mg/dL High 0.40 - 1.00 mg/dL [facility] Comment on above: METHOD TRACEABLE TO IDMS STANDARD EGFR Non-Race Dependent 53 Low - PINF [facility] Comment on above: Reported eGFR is bas ed on the CKD-EPI 2020 equation that does not use a race coefficient. Glucose [Mass/Vol] 125 mg/dL High 65 - 99 mg/dL [facility] Interpretation and review of laboratory results Abnormal [facility] Potassium [Moles/Vol] 4.1 mmol/L 3.5 - 5.0 mmol/L [facility] Protein [Mass/Vol] 5.2 g/dL Low 6.0 - 8.0 g/dL [facility] Sodium [Moles/Vol] 140 mmol/L 134 - 146 mmol/L [facility] Urea nitrogen [Mass/Vol] 37 mg/dL High 5 - 27 mg/dL [facility] HEMOGLOBIN AND HEMATOCRIT, B 10-01-2024 Hematocrit (Bld) [Volume fraction] 27.9 % Low 35-[address] [facility] Comment on above: Performed By: #### P TT #### [facility] ([facility]) [address] [place] [address] VIR Hemoglobin (Bld) [Mass/Vol] 9.4 g/dL Low 11.7-15.[address] [facility] Comment on above: Performed By: #### P TT #### [facility] ([facility]) [address] [place] [address] VIR Hematocrit (Bld) [Volume fraction] 28.6 % Low 35-[address] [facility] Comment on above: Performed By: #### P TT #### [facility] ([facility]) [address] [place] [address] VIR Hemoglobin (Bld) [Mass/Vol] 9.6 g/dL Low 11.7-15.[address] [facility] Comment on above: Performed By: #### P TT #### [facility] ([facility]) [address] [place], [place] [address] VIR Hemoglobin and hematocrit, [facility] 10-01-2024 Hematocrit (Bld) [Volume fraction] 27.9 % Low 35 - 47 % [facility] Hemoglobin (Bld) [Mass/Vol] 9.4 g/dL Low 11.7 - 15.5 g/dL [facility] Interpretation and review of laboratory results Abnormal [facility] Hematocrit (Bld) [Volume fraction] 28.6 % Low 35 - 47 % [facility] Hemoglobin (Bld) [Mass/Vol] 9.6 g/dL Low 11.7 - 15.5 g/dL [facility] Interpretation and review of laboratory results Abnormal [facility] IONIZED MAGNESIUMon 10-02-19 Magnesium [Moles/Vol] 0.57 mmol/L Normal 0.45-0.[address] [facility] Comment on above: Performed By: #### P INR #### [facility] ([facility]) [address] [place] [address] VIR Ionized magnesiumon 10-02-19 Interpretation and review of laboratory results Normal [facility] Magnesium Ionized ISE (Bld) [Moles/Vol] 0.57 mmol/L 0.45 - 0.74 mmol/L [facility] MAGNESIUMon 10-01-2024 Magnesium [Mass/Vol] 1.8 mg/dL Normal 1.8-2.[address] [facility] Comment on above: Performed By: #### P INR #### [facility] ([facility]) [address] [place] [address] VIR Magnesiumon 10-01-2024 Interpretation and review of laboratory results Normal [facility] Magnesium [Mass/Vol] 1.8 mg/dL 1.8 - 2.6 mg/dL [facility] No Panel Informationon 10-01 [facility] ABO Rh Repe[place] 09-30-2024 ABO A [facility] Rh Nom (Bld) Positive [facility] CBC WITH AUTO DIFFERENTIALon 09-30-2024 BASOPHILS ABSOLUTE COUNT (10*3/UL) BY AUTOMATED COUNT 0.0 10*3/uL Normal 0.0-0.[address] [facility] Comment on above: Performed By: #### P INR #### [facility] ([facility]) [address] [place] [address] VIR BASOPHILS RELATIVE PERCENT BY AUTOMATED COUNT 0.7 % Normal [facility] Comment on above: Performed By: #### P INR #### [facility] ([facility]) [address] [place] [address] VIR CELLAVISION DIFFERENTIAL TYPE AUTOMATED DIFFERENTIAL Normal [facility] Comment on above: Performed By: #### P INR #### [facility] ([facility]) [address] [place] [address] VIR Eosinophils (Bld) [#/Vol] 0.1 10*3/uL Normal 0.0-0.[address] [facility] Comment on above: Performed By: #### P INR #### [facility] ([facility]) [address] [place] [address] VIR EOSINOPHILS RELATIVE PERCENT BY AUTOMATED COUNT 3.2 % Normal [facility] Comment on above: Performed By: #### P INR #### [facility] ([facility]) [address] [place] [address] VIR Erythrocyte distribution width (RBC) [Ratio] 15.1 % High 11.5-[address] [facility] Comment on above: Performed By: #### P INR #### [facility] ([facility]) [address] [place] [address] VIR Hematocrit (Bld) [Volume fraction] 26.2 % Low 35-[address] [facility] Comment on above: Performed By: #### P INR #### [facility] ([facility]) [address] [place] [address] VIR Hemoglobin (Bld) [Mass/Vol] 8.9 g/dL Low 11.7-15.[address] [facility] Comment on above: Performed By: #### P INR #### [facility] ([facility]) [address] [place] [address] VIR LYMPHOCYTES ABSOLUTE COUNT (10*3/UL) BY AUTOMATED COUNT 0.5 10*3/uL Low 1.0-3.[address] [facility] Comment on above: Performed By: #### P INR #### [facility] ([facility]) [address] [place] [address] VIR LYMPHOCYTES RELATIVE PERCENT BY AUTOMATED COUNT 15.3 % Normal [facility] Comment on above: Performed By: #### P INR #### [facility] ([facility]) [address] [place] [address] VIR MCH (RBC) [Entitic mass] 30.0 pg Normal 27-[address] [facility] Comment on above: Performed By: #### P INR #### [facility] ([facility]) [address] [place] [address] VIR MCHC (RBC) [Mass/Vol] 34.2 g/dL Normal 32-[address] [facility] Comment on above: Performed By: #### P INR #### [facility] ([facility]) [address] [place] [address] VIR MCV (RBC) [Entitic vol] 88 fL Normal 80-[address] [facility] Comment on above: Performed By: #### P INR #### [facility] ([facility]) [address] [place] [address] VIR MONOCYTES ABSOLUTE COUNT (10*3/UL) BY AUTOMATED COUNT 0.4 10*3/uL Normal 0.0-0.[address] [facility] Comment on above: Performed By: #### P INR #### [facility] ([facility]) [address] [place] [address] VIR MONOCYTES RELATIVE PERCENT BY AUTOMATED COUNT 11.7 % Normal [facility] Comment on above: Performed By: #### P INR #### [facility] ([facility]) [address] [place] [address] VIR NEUTROPHILS ABSOLUTE COUNT BY AUTOMATED COUNT 2.4 10*3/uL Normal 1.5-6.[address] [facility] Comment on above: Performed By: #### P INR #### [facility] ([facility]) [address] [place] [address] VIR NEUTROPHILS RELATIVE PERCENT BY AUTOMATED COUNT 69.1 % Normal [facility] Comment on above: Performed By: #### P INR #### [facility] ([facility]) [address] [place] [address] VIR Platelet mean volume (Bld) [Entitic vol] 9.7 fL Normal 7-[address] [facility] Comment on above: Performed By: #### P INR #### [facility] ([facility]) [address] [place] [address] VIR Platelets (Bld) [#/Vol] 71 10*3/uL Low 150-[address] [facility] Comment on above: Performed By: #### P INR #### [facility] ([facility]) [address] [place] [address] VIR RBC COUNT 2.98 X10E12/L Low 3.8-5.[address] [facility] Comment on above: Performed By: #### P INR #### [facility] ([facility]) [address] [place] [address] VIR WBC (Bld) [#/Vol] 3.5 10*3/uL Low 4-11 [facility] Comment on above: Performed By: #### P INR #### [facility] ([facility]) [address] [place] [address] VIR CBC auto differentialon 09-21 Basophils (Bld) [#/Vol] 0 10*3/uL 0.0 - 0.2 10*3/uL [facility] Basophils/100 WBC (Bld) 0.7 % [facility] Differential cell count method Nom (Bld) AUTOMATED DIFFERENTIAL [facility] Eosinophils (Bld) [#/Vol] 0.1 10*3/uL 0.0 - 0.4 10*3/uL [facility] Eosinophils/100 WBC (Bld) 3.2 % [facility] Erythrocyte distribution width (RBC) [Ratio] 15.1 % High 11.5 - 15 % [facility] Hematocrit (Bld) [Volume fraction] 26.2 % Low 35 - 47 % [facility] Hemoglobin (Bld) [Mass/Vol] 8.9 g/dL Low 11.7 - 15.5 g/dL [facility] Interpretation and review of laboratory results Abnormal [facility] Lymphocytes (Bld) [#/Vol] 0.5 10*3/uL Low 1.0 - 3.5 10*3/uL [facility] Lymphocytes/100 WBC (Bld) 15.3 % [facility] MCH (RBC) [Entitic mass] 30 pg 27 - 34 pg [facility] MCHC (RBC) [Mass/Vol] 34.2 g/dL 32 - 36 g/dL [facility] MCV (RBC) [Entitic vol] 88 fL 80 - 100 fL [facility] Monocytes (Bld) [#/Vol] 0.4 10*3/uL 0.0 - 0.9 10*3/uL [facility] Monocytes/100 WBC (Bld) 11.7 % [facility] Neutrophils (Bld) [#/Vol] 2.4 10*3/uL 1.5 - 6.6 10*3/uL [facility] Neutrophils/100 WBC (Bld) 69.1 % [facility] Platelet mean volume (Bld) [Entitic vol] 9.7 fL 7 - 12 fL [facility] Platelets (Bld) [#/Vol] 71 10*3/uL Low [facility] RBC (Bld) [#/Vol] 2.98 10*6/uL Low [facility] WBC LM Ql (Sput) 3.5 Low [facility] COMPREHENSIVE METABOLIC PANE Arley 09-30-2024 Albumin [Mass/Vol] 3.0 g/dL Low 3.2-5.3 [facility] Comment on above: Performed By: #### P INR #### [facility] ([facility]) [address] [place] [address] VIR ALP [Catalytic activity/Vol] 123 U/L Normal 39-[address] [facility] Comment on above: Performed By: #### P INR #### [facility] ([facility]) [address] [place] [address] VIR ALT [Catalytic activity/Vol] 38 U/L High <=[address] [facility] Comment on above: Performed By: #### P INR #### [facility] ([facility]) [address] [place] [address] VIR Anion gap [Moles/Vol] 9 mmol/L Normal 5-[address] [facility] Comment on above: Performed By: #### P INR #### [facility] ([facility]) [address] [place] [address] VIR AST [Catalytic activity/Vol] 36 U/L Normal <=[address] [facility] Comment on above: Performed By: #### P INR #### [facility] ([facility]) [address] [place] [address] VIR Bilirubin [Mass/Vol] 1.0 mg/dL Normal 0.3-1.[address] [facility] Comment on above: Performed By: #### P INR #### [facility] ([facility]) [address] [place] [address] VIR Calcium [Mass/Vol] 8.3 mg/dL Low 8.5-10.5 [facility] Comment on above: Performed By: #### P INR #### [facility] ([facility]) [address] [place] [address] VIR Chloride [Moles/Vol] 116 mmol/L High 98-[address] [facility] Comment on above: Performed By: #### P INR #### [facility] ([facility]) [address] [place] [address] VIR CO2 [Moles/Vol] 17 mmol/L Low 22-[address] [facility] Comment on above: Performed By: #### P INR #### [facility] ([facility]) [address] [place] [address] VIR Creatinine [Mass/Vol] 1.48 mg/dL High 0.40-1.[address] [facility] Comment on above: Result Comment: METH OD TRACEABLE TO IDMS STANDARD Performed By: #### P INR #### [facility] ([facility]) [address] [place] [address] VIR GFR/1.73 sq M.predicted among non-blacks MDRD (S/P/Bld) [Vol rate/Area] 37 mL/min/{1.73_m2} Low >=[address] [facility] Comment on above: Result Comment: Repo rted eGFR is based on the CKD-EPI 2020 equation that does not use a race coefficient. Performed By: #### P INR #### [facility] ([facility]) [address] [place] [address] VIR Glucose [Mass/Vol] 203 mg/dL High 65-99 [facility] Comment on above: Performed By: #### P INR #### [facility] ([facility]) [address] [place] [address] VIR Potassium [Moles/Vol] 4.3 mmol/L Normal 3.5-5.[address] [facility] Comment on above: Performed By: #### P INR #### [facility] ([facility]) [address] [place] [address] VIR Protein [Mass/Vol] 5.3 g/dL Low 6.0-8.0 [facility] Comment on above: Performed By: #### P INR #### [facility] ([facility]) [address] [place] [address] VIR Sodium [Moles/Vol] 142 mmol/L Normal 134-146 [facility] Comment on above: Performed By: #### P INR #### [facility] ([facility]) [address] [place] [address] VIR Urea nitrogen [Mass/Vol] 50 mg/dL High 5-[address] [facility] Comment on above: Performed By: #### P INR #### [facility] ([facility]) [address] [place] [address] VIR Comprehensive metabolic pane arley 09-30-2024 Albumin [Mass/Vol] 3 g/dL Low 3.2 - 5.3 g/dL [facility] ALP [Catalytic activity/Vol] 123 U/L 39 - 130 U/L [facility] ALT No additional P-5'-P [Catalytic activity/Vol] 38 U/L High NINF - 31 U/L [facility] Anion gap [Moles/Vol] 9 mmol/L 5 - 15 mmol/L [facility] AST [Catalytic activity/Vol] 36 U/L NINF - 41 U/L [facility] Bilirubin [Mass/Vol] 1 mg/dL 0.3 - 1.2 mg/dL [facility] Calcium [Mass/Vol] 8.3 mg/dL Low 8.5 - 10. 5 mg/dL [facility] Chloride [Moles/Vol] 116 mmol/L High 98 - 109 mmol/L [facility] CO2 [Moles/Vol] 17 mmol/L Low 22 - 32 mmol/L [facility] Creatinine [Mass/Vol] 1.48 mg/dL High 0.40 - 1.00 mg/dL [facility] Comment on above: METHOD TRACEABLE TO IDPR STANDARD EGFR Non-Race Dependent 37 Low - PINF [facility] Comment on above: Reported eGFR is bas ed on the CKD-EPI 2020 equation that does not use a race coefficient. Glucose [Mass/Vol] 203 mg/dL High 65 - 99 mg/dL [facility] Interpretation and review of laboratory results Abnormal [facility] Potassium [Moles/Vol] 4.3 mmol/L 3.5 - 5.0 mmol/L [facility] Protein [Mass/Vol] 5.3 g/dL Low 6.0 - 8.0 g/dL [facility] Sodium [Moles/Vol] 142 mmol/L 134 - 146 mmol/L [facility] Urea nitrogen [Mass/Vol] 50 mg/dL High 5 - 27 mg/dL [facility] HEMOGLOBIN AND HEMATOCRIT, B LOODon 09-30-2024 Hematocrit (Bld) [Volume fraction] 26.8 % Low 35-[address] [facility] Comment on above: Performed By: #### P INR #### [facility] [address] [place] [address] VIR Hemoglobin (Bld) [Mass/Vol] 9.1 g/dL Low 11.7-15.[address] [facility] Comment on above: Performed By: #### P INR #### [facility] ([facility]) [address] [place] [address] VIR Hematocrit (Bld) [Volume fraction] 28.4 % Low 35-[address] [facility] Comment on above: Performed By: #### P INR #### [facility] ([facility]) [address] [place] [address] VIR Hemoglobin (Bld) [Mass/Vol] 9.7 g/dL Low 11.7-15.[address] [facility] Comment on above: Performed By: #### P INR #### [facility] ([facility]) [address] [place] [address] VIR Hematocrit (Bld) [Volume fraction] 24.4 % Low 35-[address] [facility] Comment on above: Performed By: #### P INR #### [facility] ([facility]) [address] [place] [address] VIR Hemoglobin (Bld) [Mass/Vol] 8.3 g/dL Low 11.7-15.[address] [facility] Comment on above: Performed By: #### P INR #### [facility] ([facility]) [address] [place] [address] VIR Hemoglobin and hematocrit, b loodon 09-30-2024 Hematocrit (Bld) [Volume fraction] 26.8 % Low 35 - 47 % [facility] Hemoglobin (Bld) [Mass/Vol] 9.1 g/dL Low 11.7 - 15.5 g/dL [facility] Interpretation and review of laboratory results Abnormal [facility] Hematocrit (Bld) [Volume fraction] 28.4 % Low 35 - 47 % [facility] Hemoglobin (Bld) [Mass/Vol] 9.7 g/dL Low 11.7 - 15.5 g/dL [facility] Interpretation and review of laboratory results Abnormal [facility] Hematocrit (Bld) [Volume fraction] 24.4 % Low 35 - 47 % [facility] Hemoglobin (Bld) [Mass/Vol] 8.3 g/dL Low 11.7 - 15.5 g/dL [facility] Interpretation and review of laboratory results Abnormal [facility] IONIZED CALCIUMon 09-30-2024 IONIZED CALCIUM - ICAN 4.6 mg/dL Normal 4.5-5.[address] [facility] Comment on above: Performed By: #### I CA #### [facility] ([facility]) [address] [place] [address] VIR Ionized calciumon 09-30-2024 Calcium.ionized ISE [Moles/Vol] 4.6 mg/dL 4.5 - 5.3 mg/dL [facility] Interpretation and review of laboratory results Normal [facility] MAGNESIUMon 09-30-2024 Magnesium [Mass/Vol] 2.0 mg/dL Normal 1.8-2.[address] [facility] Comment on above: Performed By: #### P INR #### [facility] ([facility]) [address] [place] [address] VIR Magnesiumon 09-30-2024 Interpretation and review of laboratory results Normal [facility] Magnesium [Mass/Vol] 2 mg/dL 1.8 - 2.6 mg/dL [facility] No Panel Informationon 09-30 [facility] Procalcitoninon 09-30-2024 Interpretation and review of laboratory results Abnormal [facility] Procalcitonin IA [Mass/Vol] 1.48 ng/mL High NINF - 0.05 ng/mL [facility] <0.50 ng/mL - Low ri sk of severe sepsis and/or septic shock. <2.00 ng/mL - Recommend retesting within 6-24 hours. >2.00 ng/mL - High risk of sepsis and/or septic shock. [facility] APTTon 09-29-2024 aPTT Coag (PPP) [Time] 31 s [facility] Interpretation and review of laboratory results Normal [facility] aPTT Coag (Bld) [Time] 31 s Normal 26-[address] [facility] Comment on above: Performed By: #### P TT #### [facility] ([facility]) [address] [place] [address] VIR aPTT Coag (Bld) [Time] 33.6 s Normal 26.8-34.8 [facility] Comment on above: Result Comment: IV Heparin Therapy Range: 62.0-94.0 Performed By: #### P TT, PT #### [facility] [address] [place] [address] Education Program Associate: Wilver Calvillo MD Ammoniaon 09-29-2024 Ammonia (P) [Moles/Vol] 23 umol/L 11 - 51 umol/L [facility] Ammonia (P) [Moles/Vol] 23 umol/L Normal -51 [facility] Comment on above: Performed By: #### U RC #### [facility] [address] [place], [place] [id number] Education Program Associate: Beto Farah MD [facility] [address] [place] [address] Education Program Associate: Wilver Calvillo MD BEDSIDE GLUCOSEon 09-29-2024 Glucose [Mass/Vol] 143 mg/dL High 65-99 [facility] Comment on above: Performed By: #### B EDG #### [facility] ([facility]) [address] [place] [address] VIR Bedside Glucose *Place/Obtai n serum glucose if >500 per glucometer.on 09-29-2024 Glucose [Mass/Vol] 143 mg/dL High 65 - 99 mg/dL [facility] Interpretation and review of laboratory results Abnormal [facility] Blood occult stool #1on 0 Date, Stool #1 TIMED [facility] Hemoglobin.gastroin testinal spec 1 Ql (Stl) Positive Abnormal NEGATIVE [facility] Interpretation and review of laboratory results Abnormal [facility] Time, Stool #1 645 [facility] CBC WITH AUTO DIFFERENTIALon 09-29-2024 Band form neutrophils/100 WBC (Bld) 5 % Normal [facility] Comment on above: Result Comment: This is an appended report. These results have been appended to a previously preliminary verified report. Performed By: #### C BCA #### [facility] ([facility]) [address] [place] [address] VIR CELLAVISION ATYPICAL LYMPHOCYTES RELATIVE PERCENT BY MANUAL COUNT 2 % Normal [facility] Comment on above: Result Comment: This is an appended report. These results have been appended to a previously preliminary verified report. Performed By: #### C BCA #### [facility] ([facility]) [address] [place] [address] VIR CELLAVISION ROSA CELLS IN BLOOD BY LIGHT MICROSCOPY 1+ Normal [facility] Comment on above: Result Comment: This is an appended report. These results have been appended to a previously preliminary verified report. Performed By: #### C BCA #### [facility] ([facility]) [address] [place] [address] VIR CELLAVISION DIFFERENTIAL TYPE MANUAL DIFFERENTIAL Normal [facility] Comment on above: Result Comment: This is an appended report. These results have been appended to a previously preliminary verified report. Performed By: #### C BCA #### [facility] ([facility]) [address] [place] [address] VIR CELLAVISION ELLIPTOCYTES IN BLOOD BY LIGHT MICROSCOPY 1+ Normal [facility] Comment on above: Result Comment: This is an appended report. These results have been appended to a previously preliminary verified report. Performed By: #### C BCA #### [facility] ([facility]) [address] [place] [address] VIR CELLAVISION EOSINOPHILS ABSOLUTE COUNT (10*3/UL) BY MANUAL COUNT 0.1 10*3/uL Normal 0.0-0.[address] [facility] Comment on above: Result Comment: This is an appended report. These results have been appended to a previously preliminary verified report. Performed By: #### C BCA #### [facility] ([facility]) [address] [place] [address] VIR CELLAVISION EOSINOPHILS PERCENT BY MANUAL COUNT 2 % Normal [facility] Comment on above: Result Comment: This is an appended report. These results have been appended to a previously preliminary verified report. Performed By: #### C BCA #### [facility] ([facility]) [address] [place] [address] VIR CELLAVISION LYMPHOCYTES ABSOLUTE COUNT (10*3/UL) BY MANUAL COUNT 0.9 10*3/uL Low 1.0-3.[address] [facility] Comment on above: Result Comment: This is an appended report. These results have been appended to a previously preliminary verified report. Performed By: #### C BCA #### [facility] ([facility]) [address] [place] [address] VIR CELLAVISION LYMPHOCYTES RELATIVE PERCENT BY MANUAL COUNT 19 % Normal [facility] Comment on above: Result Comment: This is an appended report. These results have been appended to a previously preliminary verified report. Performed By: #### C BCA #### [facility] ([facility]) [address] [place] [address] VIR CELLAVISION MONOCYTES ABSOLUTE COUNT (10*3/UL) IN BLOOD BY MANUAL COUNT 0.3 10*3/uL Normal 0.0-0.[address] [facility] Comment on above: Result Comment: This is an appended report. These results have been appended to a previously preliminary verified report. Performed By: #### C BCA #### [facility] ([facility]) [address] [place] [address] VIR CELLAVISION MONOCYTES RELATIVE PERCENT BY MANUAL COUNT 8 % Normal [facility] Comment on above: Result Comment: This is an appended report. These results have been appended to a previously preliminary verified report. Performed By: #### C BCA #### [facility] ([facility]) [address] [place] [address] VIR CELLAVISION NEUTROPHILS ABSOLUTE COUNT BY MANUAL COUNT 2.7 10*3/uL Normal 1.5-6.[address] [facility] Comment on above: Result Comment: This is an appended report. These results have been appended to a previously preliminary verified report. Performed By: #### C BCA #### [facility] ([facility]) [address] [place] [address] VIR CELLAVISION NEUTROPHILS RELATIVE PERCENT BY MANUAL COUNT 64 % Normal [facility] Comment on above: Result Comment: This is an appended report. These results have been appended to a previously preliminary verified report. Performed By: #### C BCA #### [facility] ([facility]) [address] [place] [address] VIR Erythrocyte distribution width (RBC) [Ratio] 15.2 % High 11.5-[address] [facility] Comment on above: Performed By: #### C BCA #### [facility] ([facility]) [address] [place] [address] VIR Hematocrit (Bld) [Volume fraction] 24.4 % Low 35-[address] [facility] Comment on above: Performed By: #### C BCA #### [facility] ([facility]) [address] [place] [address] VIR Hemoglobin (Bld) [Mass/Vol] 8.3 g/dL Low 11.7-15.[address] [facility] Comment on above: Performed By: #### C BCA #### [facility] ([facility]) [address] [place] [address] VIR MCH (RBC) [Entitic mass] 29.7 pg Normal 27-[address] [facility] Comment on above: Performed By: #### C BCA #### [facility] ([facility]) [address] [place] [address] VIR MCHC (RBC) [Mass/Vol] 34.0 g/dL Normal 32-[address] [facility] Comment on above: Performed By: #### C BCA #### [facility] ([facility]) [address] [place] [address] VIR MCV (RBC) [Entitic vol] 87 fL Normal 80-[address] [facility] Comment on above: Performed By: #### C BCA #### [facility] ([facility]) [address] [place] [address] VIR Platelet mean volume (Bld) [Entitic vol] 9.8 fL Normal 7-[address] [facility] Comment on above: Performed By: #### C BCA #### [facility] ([facility]) [address] [place] [address] VIR Platelets (Bld) [#/Vol] 61 10*3/uL Low 150-[address] [facility] Comment on above: Performed By: #### C BCA #### [facility] ([facility]) [address] [place] [address] VIR RBC COUNT 2.79 X10E12/L Low 3.8-5.[address] [facility] Comment on above: Performed By: #### C BCA #### [facility] ([facility]) [address] [place] [address] VIR WBC (Bld) [#/Vol] 4.0 10*3/uL Normal 4-11 [facility] Comment on above: Performed By: #### C BCA #### [facility] ([facility]) [address] [place] [address] VIR CBC auto differentialon 05-0 9-5 Band form neutrophils/100 WBC (Bld) 5 % [facility] Comment on above: This is an appended report. These results have been appended to a previously preliminary verified report. [place] cells LM Ql (Bld) 1+ [facility] Comment on above: This is an appended report. These results have been appended to a previously preliminary verified report. Differential cell count method Nom (Bld) MANUAL DIFFERENTIAL [facility] Comment on above: This is an appended report. These results have been appended to a previously preliminary verified report. Elliptocytes LM Ql (Bld) 1+ [facility] Comment on above: This is an appended report. These results have been appended to a previously preliminary verified report. Eosinophils (Bld) [#/Vol] 0.1 10*3/uL 0.0 - 0.4 10*3/uL [facility] Comment on above: This is an appended report. These results have been appended to a previously preliminary verified report. Eosinophils/100 WBC (Bld) 2 % [facility] Comment on above: This is an appended report. These results have been appended to a previously preliminary verified report. Erythrocyte distribution width (RBC) [Ratio] 15.2 % High 11.5 - 15 % [facility] Hematocrit (Bld) [Volume fraction] 24.4 % Low 35 - 47 % [facility] Hemoglobin (Bld) [Mass/Vol] 8.3 g/dL Low 11.7 - 15.5 g/dL [facility] Interpretation and review of laboratory results Abnormal [facility] Lymphocytes (Bld) [#/Vol] 0.9 10*3/uL Low 1.0 - 3.5 10*3/uL [facility] Comment on above: This is an appended report. These results have been appended to a previously preliminary verified report. MCH (RBC) [Entitic mass] 29.7 pg 27 - 34 pg [facility] MCHC (RBC) [Mass/Vol] 34 g/dL 32 - 36 g/dL [facility] MCV (RBC) [Entitic vol] 87 fL 80 - 100 fL [facility] Monocytes (Bld) [#/Vol] 0.3 10*3/uL 0.0 - 0.9 10*3/uL [facility] Comment on above: This is an appended report. These results have been appended to a previously preliminary verified report. Monocytes/100 WBC (Bld) 8 % [facility] Comment on above: This is an appended report. These results have been appended to a previously preliminary verified report. Neutrophils (Bld) [#/Vol] 2.7 10*3/uL 1.5 - 6.6 10*3/uL [facility] Comment on above: This is an appended report. These results have been appended to a previously preliminary verified report. Neutrophils/100 WBC (Bld) 64 % [facility] Comment on above: This is an appended report. These results have been appended to a previously preliminary verified report. Platelet mean volume (Bld) [Entitic vol] 9.8 fL 7 - 12 fL [facility] Platelets (Bld) [#/Vol] 61 10*3/uL Low [facility] RBC (Bld) [#/Vol] 2.79 10*6/uL Low [facility] Variant lymphocytes/100 WBC (Bld) 19 % [facility] Comment on above: This is an appended report. These results have been appended to a previously preliminary verified report. Variant lymphocytes/100 WBC (Bld) 2 % [facility] Comment on above: This is an appended report. These results have been appended to a previously preliminary verified report. WBC LM Ql (Sput) 4 [facility] Basophils (Bld) [#/Vol] 0 10*3/uL [facility] Basophils/100 WBC (Bld) 0 % 0 - 2 % [facility] Eosinophils (Bld) [#/Vol] 0 10*3/uL [facility] Eosinophils/100 WBC (Bld) 0 % Low 1 - 4 % [facility] Erythrocyte distribution width (RBC) [Ratio] 14.3 % 11.8 - 14.4 % [facility] Hematocrit (Bld) [Volume fraction] 21.7 % Low 36.3 - 47.1 % [facility] Hemoglobin (Bld) [Mass/Vol] 6.8 g/dL Critically low 11.9 - 15.1 g/dL [facility] Immature granulocytes (Bld) [#/Vol] 0 10*3/uL [facility] Immature granulocytes/100 WBC (Bld) 0 % 0 [facility] Interpretation and review of laboratory results Abnormal [facility] Lymphocytes/100 WBC (Bld) 13 % Low 24 - 43 % [facility] Lymphocytes/100 WBC (Bld) 0.95 % Low [facility] MCH (RBC) [Entitic mass] 29.8 pg 25.2 - 33.5 pg [facility] MCHC (RBC) [Mass/Vol] 31.3 g/dL 28.4 - 34.8 g/dL [facility] MCV (RBC) [Entitic vol] 95.2 fL 82.6 - 102.9 fL [facility] Monocytes/100 WBC (Bld) 12 % 3 - 12 % [facility] Monocytes/100 WBC (Bld) 0.88 % [facility] Morphology Padilla (Bld) [Interp] Platelet scan shows Decreased Platelets [facility] Neutrophils/100 WBC (Bld) 75 % High 36 - 65 % [facility] Nucleated RBC/100 WBC (Bld) [Ratio] 0 % 0.0 per 100 WBC [facility] Platelet, Fluorescence 91 Low [facility] Platelets (Bld) [#/Vol] See Reflexed IPF Result [facility] Platelets reticulated/100 platelets Auto (Bld) 3.7 % 1.1 - 10.3 % [facility] RBC (Bld) [#/Vol] 2.28 10*6/uL Low 3.95 - 5.1 1 m/uL [facility] Segmented neutrophils/100 WBC (Bld) 5.47 % [facility] WBC other (Bld) [#/Vol] 7.3 [facility] CBC with Diffon 09-29-2024 Abs. Basophil 0.00 k/uL Normal 0.00-0.20 [facility] Comment on above: Performed By: #### U #### [facility] [place] [address] Education Program Associate: Beto Farah MD [address] [place] [phone] Education Program Associate: Wilver Calvillo MD Abs.Imm.Granulocyte 0.00 k/uL Normal 0.00-0.30 [facility] Comment on above: Performed By: #### U RC #### [address] [address] Education Program Associate: Beto Farah MD [address] [place] [address] Education Program Associate: Wilver Calvillo MD Abs.Neutrophil (Seg) 5.47 k/uL Normal 1.50-8.10 [facility] Comment on above: Performed By: #### U RC #### [address] [address] Education Program Associate: Beto Farah MD [address] [place] [address] Education Program Associate: Wilver Calvillo MD Basophils/100 WBC (Bld) 0 % Normal 0-2 [facility] Comment on above: Performed By: #### U RC #### [address] [address] Education Program Associate: Beto Farah MD [address] [place] [address] Education Program Associate: Wilver Calvillo MD Eosinophils (Bld) [#/Vol] 0.00 10*3/uL Normal 0.00-0.44 [facility] Comment on above: Performed By: #### U RC #### [address] [address] Education Program Associate: Beto Farah MD [address] [place] [address] Education Program Associate: Wilver Calvillo MD Eosinophils/100 WBC (Bld) 0 % Low 1-4 [facility] Comment on above: Performed By: #### U RC #### [place] [address] [place] [address] Education Program Associate: Beto Farah MD [facility] [address] [place] [address] [place] [phone] Education Program Associate: Wilver Calvillo MD Immature granulocytes/100 WBC (Bld) 0 % Normal 0 [facility] Comment on above: Performed By: #### U RC #### [address] [address] Education Program Associate: Beto Farah MD [facility] [address] [place] [address] [place] [phone] Education Program Associate: Wilver Calvillo MD Lymphocytes (Bld) [#/Vol] 0.95 10*3/uL Low 1.10-3.70 [facility] Comment on above: Performed By: #### U RC #### [address] [address] Education Program Associate: Beto Farah MD [facility] [address] [place] [address] [place] [phone] Education Program Associate: Wilver Calvillo MD Lymphocytes/100 WBC (Bld) 13 % Low 24-43 [facility] Comment on above: Performed By: #### U RC #### [address] [address] Education Program Associate: Beto Farah MD [facility] [address] [place] [address] [place] [address] Education Program Associate: Wilver Calvillo MD Monocytes (Bld) [#/Vol] 0.88 10*3/uL Normal 0.10-1.20 [facility] Comment on above: Performed By: #### U RC #### [address] [address] Education Program Associate: Beto Farah MD [facility] [address] [place] [address] [place] [phone] Education Program Associate: Wilver Calvillo MD Monocytes/100 WBC (Bld) 12 % Normal 3-12 [facility] Comment on above: Performed By: #### U RC #### [facility] [address] [place] [address] Education Program Associate: Beto Farah MD [facility] [address] [place] [address] [place], [place] [phone] Education Program Associate: Wilver Calvillo MD Morphology Padilla (Bld) [Interp] Platelet scan shows Decreased Platelets Normal [facility] Comment on above: Performed By: #### U RC #### [facility] [address] [place] [phone] Education Program Associate: Beto Farah MD [address] [place] [address] Education Program Associate: Wilver Calvillo MD Neutrophil (Seg) 75 % High 36-65 [facility] Comment on above: Performed By: #### U RC #### [facility] [address] [place] [address] Education Program Associate: Beto Farah MD [facility] [address] [place] [address] [address] [place] [phone] Education Program Associate: Wilver Calvillo MD Erythrocyte distribution width (RBC) [Ratio] 14.3 % Normal 11.8-14.4 [facility] Comment on above: Performed By: #### U RC #### [facility] [address] [place] [phone] Education Program Associate: Beto Farah MD [facility] [address] [place] [address] [address] [place], [place] [phone] Education Program Associate: Wilver Calvillo MD Hematocrit (Bld) [Volume fraction] 21.7 % Low 36.3-47.1 [facility] Comment on above: Performed By: #### U RC #### [facility] [address] [place] [address] Education Program Associate: Beto Farah MD [address] [place], [place] [phone] Education Program Associate: Wilver Calvillo MD Hemoglobin (Bld) [Mass/Vol] 6.8 g/dL Critically low 11.9-15.1 [facility] Comment on above: Performed By: #### U RC #### [address] [address] Education Program Associate: Beto Farah MD [address] [place] [phone] Education Program Associate: Wilver Calvillo MD MCH (RBC) [Entitic mass] 29.8 pg Normal 25.2-33.5 [facility] Comment on above: Performed By: #### U RC #### [address] [address] Education Program Associate: Beto Farah MD [address] [place] [phone] Education Program Associate: Wilver Calvillo MD MCHC (RBC) [Mass/Vol] 31.3 g/dL Normal 28.4-34.8 [facility] Comment on above: Performed By: #### U RC #### [address] [address] Education Program Associate: Beto Farah MD [address] [place] [phone] Education Program Associate: Wilver Calvillo MD MCV (RBC) [Entitic vol] 95.2 fL Normal 82.6-102.9 [facility] Comment on above: Performed By: #### U RC #### [address] [address] Education Program Associate: Beto Farah MD [address] [place] [address] Education Program Associate: Wilver Calvillo MD NRBC Automated 0.0 per 100 WBC Normal 0.0 [facility] Comment on above: Performed By: #### U RC #### [facility] [address] [place] [address] Education Program Associate: Beto Farah MD [facility] [address] [place] [address] [place] [address] Education Program Associate: Wilver Calvillo MD Platelet Count See Reflexed IPF Result Normal 138-453 [facility] Comment on above: Performed By: #### U RC #### [address] [address] Education Program Associate: Beto Farah MD [facility] [address] [place] [address] [place] [address] Education Program Associate: Wilver Calvillo MD Platelet, Fluoresc. 91 k/uL Low 138-453 [facility] Comment on above: Performed By: #### U RC #### [address] [address] Education Program Associate: Beto Farah MD [address] [place] [address] Education Program Associate: Wilver Calvillo MD PLT, Immature Fract. 3.7 % Normal 1.1-10.3 [facility] Comment on above: Performed By: #### U RC #### [address] [address] Education Program Associate: Beto Farah MD [address] [place] [address] Education Program Associate: Wilver Calvillo MD RBC (Bld) [#/Vol] 2.28 10*6/uL Low 3.95-5.11 [facility] Comment on above: Performed By: #### U RC #### [address] [address] Education Program Associate: Beto Farah MD [address] [place] [address] Education Program Associate: Wilver Calvillo MD WBC (Bld) [#/Vol] 7.3 10*3/uL Normal 3.5-11.3 [facility] Comment on above: Performed By: #### U #### [facility] [address] [place] [address] Education Program Associate: Beto Farah MD [facility] [address] [place], [place] [phone] Education Program Associate: Wilver Calvillo MD COMPREHENSIVE METABOLIC PANE [facility] 09-29-2024 Albumin [Mass/Vol] 2.7 g/dL Low 3.2-5.3 [facility] Comment on above: Performed By: #### C MP #### [facility] ([facility]) [address] [place] [address] VIR ALP [Catalytic activity/Vol] 121 U/L Normal 39-[address] [facility] Comment on above: Performed By: #### C MP #### [facility] ([facility]) [address] [place] [address] VIR ALT [Catalytic activity/Vol] 39 U/L High <=[address] [facility] Comment on above: Performed By: #### C MP #### [facility] ([facility]) [address] [place] [address] VIR Anion gap [Moles/Vol] 10 mmol/L Normal 5-[address] [facility] Comment on above: Performed By: #### C MP #### [facility] ([facility]) [address] [place] [address] VIR AST [Catalytic activity/Vol] 40 U/L Normal <=[address] [facility] Comment on above: Performed By: #### C MP #### [facility] ([facility]) [address] [place] [address] VIR Bilirubin [Mass/Vol] 0.9 mg/dL Normal 0.3-1.[address] [facility] Comment on above: Performed By: #### C MP #### [facility] ([facility]) [address] [place] [address] VIR Calcium [Mass/Vol] 7.2 mg/dL Low 8.5-10.5 [facility] Comment on above: Performed By: #### C MP #### [facility] ([facility]) [address] [place] [address] VIR Chloride [Moles/Vol] 120 mmol/L High 98-[address] [facility] Comment on above: Performed By: #### C MP #### [facility] ([facility]) [address] [place] [address] VIR CO2 [Moles/Vol] 16 mmol/L Low 22-[address] [facility] Comment on above: Performed By: #### C MP #### [facility] ([facility]) [address] [place] [address] VIR Creatinine [Mass/Vol] 1.54 mg/dL High 0.40-1.[address] [facility] Comment on above: Result Comment: METH OD TRACEABLE TO IDMS STANDARD Performed By: #### C MP #### [facility] ([facility]) [address] [place] [address] VIR GFR/1.73 sq M.predicted among non-blacks MDRD (S/P/Bld) [Vol rate/Area] 35 mL/min/{1.73_m2} Low >=[address] [facility] Comment on above: Result Comment: Repo rted eGFR is based on the CKD-EPI 2020 equation that does not use a race coefficient. Performed By: #### C MP #### [facility] ([facility]) [address] [place] [address] VIR Glucose [Mass/Vol] 119 mg/dL High 65-99 [facility] Comment on above: Performed By: #### C MP #### [facility] ([facility]) [address] [place] [address] VIR Potassium [Moles/Vol] 4.0 mmol/L Normal 3.5-5.[address] [facility] Comment on above: Performed By: #### C MP #### [facility] ([facility]) [address] [place] [address] VIR Protein [Mass/Vol] 4.7 g/dL Low 6.0-8.0 [facility] Comment on above: Performed By: #### C MP #### [facility] ([facility]) [address] [place] [address] VIR Sodium [Moles/Vol] 146 mmol/L Normal 134-146 [facility] Comment on above: Performed By: #### C MP #### [facility] ([facility]) [address] [place] [address] VIR Urea nitrogen [Mass/Vol] 48 mg/dL High 5-[address] [facility] Comment on above: Performed By: #### C MP #### [facility] ([facility]) [address] [place] [address] VIR Comp Metabolic Pr/rfx MGon 0 - Albumin [Mass/Vol] 3.3 g/dL Low 3.5-5.2 [facility] Comment on above: Performed By: #### U RC #### [facility] [address] [place] [address] Education Program Associate: Beto Farah MD [facility] [address] [place] [address] [place] [address] Education Program Associate: Wilver Calvillo MD Albumin/Glob Ratio 1.3 Normal 1.0-2.5 [facility] Comment on above: Performed By: #### U RC #### [facility] [address] [place] [address] Education Program Associate: Beto Farah MD [facility] [address] [place] [address] Education Program Associate: Wilver Calvillo MD Alkaline Phos 181 U/L High 35-104 [facility] Comment on above: Performed By: #### U RC #### [facility] [address] [place] [address] Education Program Associate: Beto Farah MD [facility] [address] [place] [address] [place] [place], [place] [phone] Education Program Associate: Wilver Calvillo MD ALT [Catalytic activity/Vol] 71 U/L High 10-35 [facility] Comment on above: Performed By: #### U RC #### [facility] [address] [place] [address] Education Program Associate: Beto Farah MD [address] [place], [place] [phone] Education Program Associate: Wilver Calvillo MD Anion gap [Moles/Vol] 13 mmol/L Normal 9-16 [facility] Comment on above: Performed By: #### U RC #### [facility] [address] [place] [address] Education Program Associate: Beto Farah MD [address] [place], [place] [phone] Education Program Associate: Wilver Calvillo MD AST [Catalytic activity/Vol] 83 U/L High 10-35 [facility] Comment on above: Performed By: #### U RC #### [facility] [address] [place] [address] Education Program Associate: Beto Farah MD [facility] [address] [place] [address] [address] [place], [place] [phone] Education Program Associate: Wilver Calvillo MD Bilirubin [Mass/Vol] 0.9 mg/dL Normal 0.00-1.20 [facility] Comment on above: Performed By: #### U RC #### [facility] [address] [place] [address] Education Program Associate: Beto Farah MD [facility] [address] [place] [address] [place] [address] Education Program Associate: Wilver Calvillo MD BUN/CRE Ratio 30 High 9-20 [facility] Comment on above: Performed By: #### U RC #### [facility] [address] [place] [address] Education Program Associate: Beto Farah MD [facility] [address] [place], [place] [phone] Education Program Associate: Wilver Calvillo MD Calcium [Mass/Vol] 8.3 mg/dL Low 8.6-10.4 [facility] Comment on above: Performed By: #### U RC #### [address] [address] Education Program Associate: Beto Farah MD [facility] [address] [place] [address] [place] [phone] Education Program Associate: Wilver Calvillo MD Chloride [Moles/Vol] 109 mmol/L High 98-107 [facility] Comment on above: Performed By: #### U RC #### [address] [address] Education Program Associate: Beto Farah MD [facility] [address] [place] [address] [place], [place] [phone] Education Program Associate: Wilver Calvillo MD CO2 [Moles/Vol] 17 mmol/L Low 20-31 [facility] Comment on above: Performed By: #### U RC #### [facility] [address] [place] [address] Education Program Associate: Beto Farah MD [facility] [address] [place], [place] [phone] Education Program Associate: Wilver Calvillo MD Creatinine [Mass/Vol] 1.8 mg/dL [facility] 0.50-0.90 [facility] Comment on above: Performed By: #### U RC #### [facility] [address] [place] [address] Education Program Associate: Beto Farah MD [facility] [address] [place] [address] [place] [address] Education Program Associate: Wilver Calvillo MD GFR/1.73 sq M.predicted among non-blacks MDRD (S/P/Bld) [Vol rate/Area] 29 mL/min/{1.73_m2} Low >60 [facility] Comment on above: Result Comment: These [...] secretion. Performed By: #### U RC #### [address] [address] Education Program Associate: Beto Farah MD [facility] [address] [place] [address] [place] [address] Education Program Associate: Wilver Calvillo MD Glucose [Mass/Vol] 171 mg/dL High 74-99 [facility] Comment on above: Performed By: #### U RC #### [address] [address] Education Program Associate: Beto Farah MD [facility] [address] [place] [address] [place] [address] Education Program Associate: Wilver Calvillo MD Potassium [Moles/Vol] 4.8 mmol/L Normal 3.7-5.3 [facility] Comment on above: Performed By: #### U RC #### [address] [address] Education Program Associate: Beto Farah MD [facility] [address] [place] [address] [place] [address] Education Program Associate: Wilver Calvillo MD Protein [Mass/Vol] 5.7 g/dL Low 6.6-8.7 [facility] Comment on above: Performed By: #### U #### [facility] [address] [place] [address] Education Program Associate: Beto Farah MD [facility] [address] [place] [address] Education Program Associate: Wilver Calvillo MD Sodium [Moles/Vol] 139 mmol/L Normal 136-145 [facility] Comment on above: Performed By: #### U #### [facility] [address] [place] [address] Education Program Associate: Beto Farah MD [facility] [address] [place] [address] Education Program Associate: Wilver Calvillo MD Urea nitrogen [Mass/Vol] 54 mg/dL High 8-23 [facility] Comment on above: Performed By: #### U RC #### [facility] [address] [place] [address] Education Program Associate: Beto Farah MD [facility] [address] [place] [address] Education Program Associate: Wilver Calvillo MD Comprehensive Metabolic Pane l w/ Reflex to MGon 09-29-2024 Albumin [Mass/Vol] 3.3 g/dL Low 3.5 - 5.2 g/dL [facility] Albumin/Globulin [Mass ratio] 1.3 {ratio} 1.0 - 2.5 [facility] ALP [Catalytic activity/Vol] 181 U/L High 35 - 104 U/L [facility] ALT [Catalytic activity/Vol] 71 U/L High 10 - 35 U/L [facility] Anion gap [Moles/Vol] 13 mmol/L 9 - 16 mmol/L [facility] AST [Catalytic activity/Vol] 83 U/L High 10 - 35 U/L [facility] Bilirubin [Mass/Vol] 0.9 mg/dL 0.00 - 1.20 mg/dL [facility] Calcium [Mass/Vol] 8.3 mg/dL Low 8.6 - 10. 4 mg/dL [facility] Chloride [Moles/Vol] 109 mmol/L High 98 - 107 mmol/L [facility] CO2 [Moles/Vol] 17 mmol/L Low 20 - 31 mmol/L [facility] Creatinine [Mass/Vol] 1.8 mg/dL High 0.50 - 0.90 mg/dL [facility] Alma Smytht Rate 29 Low - PINF [facility] Comment on above: These results are not [...] 171 mg/dL High 74 - 99 mg/dL [facility] Interpretation and review of laboratory results Abnormal [facility] Potassium [Moles/Vol] 4.8 mmol/L 3.7 - 5.3 mmol/L [facility] Protein [Mass/Vol] 5.7 g/dL Low 6.6 - 8.7 g/dL [facility] Sodium [Moles/Vol] 139 mmol/L 136 - 145 mmol/L [facility] Urea nitrogen [Mass/Vol] 54 mg/dL High 8 - 23 mg/dL [facility] Urea nitrogen/Creatinine [Mass ratio] 30 mg/mg High 9 - 20 [facility] Comprehensive metabolic pane arley 09-29-2024 Albumin [Mass/Vol] 2.7 g/dL Low 3.2 - 5.3 g/dL [facility] ALP [Catalytic activity/Vol] 121 U/L 39 - 130 U/L [facility] ALT No additional P-5'-P [Catalytic activity/Vol] 39 U/L High NINF - 31 U/L [facility] Anion gap [Moles/Vol] 10 mmol/L 5 - 15 mmol/L [facility] AST [Catalytic activity/Vol] 40 U/L NINF - 41 U/L [facility] Bilirubin [Mass/Vol] 0.9 mg/dL 0.3 - 1.2 mg/dL [facility] Calcium [Mass/Vol] 7.2 mg/dL Low 8.5 - 10. 5 mg/dL [facility] Chloride [Moles/Vol] 120 mmol/L High 98 - 109 mmol/L [facility] CO2 [Moles/Vol] 16 mmol/L Low 22 - 32 mmol/L [facility] Creatinine [Mass/Vol] 1.54 mg/dL High 0.40 - 1.00 mg/dL [facility] Comment on above: METHOD TRACEABLE TO IDPR STANDARD EGFR Non-Race Dependent 35 Low - PINF [facility] Comment on above: Reported eGFR is bas ed on the CKD-EPI 2020 equation that does not use a race coefficient. Glucose [Mass/Vol] 119 mg/dL High 65 - 99 mg/dL [facility] Interpretation and review of laboratory results Abnormal [facility] Potassium [Moles/Vol] 4 mmol/L 3.5 - 5.0 mmol/L [facility] Protein [Mass/Vol] 4.7 g/dL Low 6.0 - 8.0 g/dL [facility] Sodium [Moles/Vol] 146 mmol/L 134 - 146 mmol/L [facility] Urea nitrogen [Mass/Vol] 48 mg/dL High 5 - 27 mg/dL [facility] EKG 12 Leadon 09-29-2024 Atrial Rate 54 BPM [facility] Tempolib P [place] 74 degrees [facility] Tempolib P-R Interval 88 ms [facility] Tempolib Q-T Interval 428 ms [facility] QRS Duration 78 ms [facility] QTc Calculation (Bazett) 405 ms [facility] R [place] 25 degrees [facility] Tempolib T [place] 30 degrees [facility] Tempolib Ventricular Rate 54 BPM [facility] Consider ACUTE CORONARY SYNDROME (ACS) Sinus bradycardia with short VA with Premature atrial complexes Nonspecific ST abnormality ECG interpretation of ACS is based on presence of symptoms and ST depression in Anterolateral leads Abnormal ECG When compared with ECG of 28-Sep-2024 14:51, Premature atrial complexes are now Present VA interval has decreased Nonspecific T wave abnormality no longer evident in Anterior leads Confirmed by John Galindo ([id number]) on 09/29/2024 8:23:04 AM [facility] John Galindo MD - 09/29/2024 Consider ACUTE CORONARY SYNDROME (ACS) Sinus bradycardia with short VA with Premature atrial complexes Nonspecific ST abnormality ECG interpretation of ACS is based on presence of symptoms and ST depression in Anterolateral leads Abnormal ECG When compared with ECG of 28-Sep-2024 14:51, Premature atrial complexes are now Present VA interval has decreased Nonspecific T wave abnormality no longer evident in Anterior leads Confirmed by John Galindo ([id number]) on 09/29/2024 8:23:04 AM [email or web address] Normal sinus rhythm Possible Left atrial enlargement Nonspecific ST and T wave abnormality Abnormal ECG When compared with ECG of 23-Jul-2021 09:50, QT has lengthened Confirmed by John Galindo ([id number]) on 09/29/2024 8:21:59 AM [facility] John Galindo MD - 09/29/2024 Normal sinus rhythm Possible Left atrial enlargement Nonspecific ST and T wave abnormality Abnormal ECG When compared with ECG of 23-Jul-2021 09:50, QT has lengthened Confirmed by John Galindo ([id number]) on 09/29/2024 8:21:59 AM [employer] EKG 12 LeadOrdered By: John Marie hmad on 09-29-2024 Atrial Rate 76 BPM [employer] Work Phone: P [place] 57 degrees [employer] Work Phone: P-R Interval 134 ms [employer] Work Phone: Q-T Interval 404 ms [employer] Work Phone: QRS Duration 76 ms [employer] Work Phone: QTc Calculation (Bazett) 454 ms [employer] Work Phone: R [place] 20 degrees [facility] Work Phone: T [place] 43 degrees [facility] Work Phone: Ventricular Rate 76 BPM [facility] Work Phone: [facility] Work Phone: EKG Rhythm Stripon [facility] Glucose, Whole Bloodon 09-29 Glucose [Mass/Vol] 178 mg/dL High 74 - 100 mg/dL [facility] Interpretation and review of laboratory results Abnormal [facility] Glucose [Mass/Vol] 178 mg/dL High 74-100 [facility] Hemoglobin and Hematocriton 09-29-2024 Hematocrit (Bld) [Volume fraction] 27.3 % Low 36.3 - 47.1 % [facility] Hemoglobin (Bld) [Mass/Vol] 8.9 g/dL Low 11.9 - 15.1 g/dL [facility] Interpretation and review of laboratory results Abnormal [facility] Hematocrit (Bld) [Volume fraction] 23.5 % Low 36.3 - 47.1 % [facility] Hemoglobin (Bld) [Mass/Vol] 7.7 g/dL Low 11.9 - 15.1 g/dL [facility] Interpretation and review of laboratory results Abnormal [facility] Hgb/Hcton 09-29-2024 Hematocrit (Bld) [Volume fraction] 27.3 % Low 36.3-47.1 [facility] Comment on above: Performed By: #### U RC #### [employer] [address] [place] [address] Education Program Associate: Beto Farah MD [facility] [address] [place] [address] Education Program Associate: Wilver Calvillo MD Hemoglobin (Bld) [Mass/Vol] 8.9 g/dL Low 11.9-15.1 [facility] Comment on above: Performed By: #### U RC #### [facility] [address] [place] [address] Education Program Associate: Beto Farah MD [facility] [address] [place] [place] [address] Education Program Associate: Wilver Calvillo MD Hematocrit (Bld) [Volume fraction] 23.5 % Low 36.3-47.1 [facility] Comment on above: Performed By: #### U RC #### [facility] [address] [place] [address] Education Program Associate: Beto Farah MD [facility] [address] [place] [address] [place] [address] Education Program Associate: Wilver Calvillo MD Hemoglobin (Bld) [Mass/Vol] 7.7 g/dL Low 11.9-15.1 [facility] Comment on above: Performed By: #### U RC #### [facility] [address] [place] [address] Education Program Associate: Beto Farah MD [facility] [address] [place] [address] [place], [place] [phone] Education Program Associate: Wilver Calvillo MD LACTATE W/ REFLEXon 09-30-19 25 LACTATE W/REFLEX 0.7 mmol/L Normal 0.4-2.0 [facility] Comment on above: Order Comment: Resul t did not trigger repeat Lactate, re-order if needed. Performed By: #### L ACTS #### [facility] [address] [place] [address] VIR Lactate w/ Reflexon 09-30-19 25 Interpretation and review of laboratory results Normal [facility] Lactate (P filippo) [Moles/Vol] 0.7 mmol/L 0.4 - 2.0 mmol/L [facility] Result did not [place] er repeat Lactate, re-order if needed. [facility] Lactic Acidon 09-29-2024 Interpretation and review of laboratory results Abnormal [facility] Lactate (BldV) [Moles/Vol] 2.4 mmol/L High 0.5 - 2.2 mmol/L [facility] Lactate [Moles/Vol] 2.4 mmol/L High 0.5-2.2 [facility] Comment on above: Performed By: #### U #### [facility] [address] [place] [address] Education Program Associate: Beto Farah MD [facility] [address] [place] [address] Education Program Associate: Wilver Calvillo MD [place] Gallbladder Views W ghulam cystokinin and W radionuclide Ted 09-29-2024 Nonvisualization of the gallbladder taken out to 2 hours. The findings could represent either acute cholecystitis or chronic cholecystitis. No enterogastric bile reflux [facility] RIS CONSOLIDATED EXAMINATION: NUCLEAR MEDICINE HEPATOBILIARY SCINTIGRAPHY [...] seen. No enterogastric bile reflux is noted. [facility] RIS CONSOLIDATED Bonita Torres MD - 09/29/2024 EXAMINATION: NUCLEAR [...] or chronic cholecystitis. No enterogastric bile reflux [facility] Radiology Study observation (narrative) [facility] NM Gallbladder Views W ghulam cystokinin and W radionuclide IVOrdered By: Bonita Torres on 09-29-2024 [facility] Work Phone: NM HEPATOBILIARY SCAN W PHAR [...] by: Bonita Torres MD 09/29/24 Final result [facility] No Panel Informationon 09-29 [facility] Occult Blood, Fecalon 2024 Occult Blood 1 Positive Abnormal NEG [facility] Comment on above: Performed By: #### U RC #### [facility] [address] [place] [address] Education Program Associate: Beto Farah MD [facility] [address] [place] [address] [place] [address] Education Program Associate: Wilver Calvillo MD Specimen 1 Date TIMED [facility] Comment on above: Performed By: #### U RC #### [facility] [address] [place] [address] Education Program Associate: Beto Farah MD [facility] [address] [place] [address] [place] [address] Education Program Associate: Wilver Calvillo MD Specimen 1 Time 0645 [facility] Comment on above: Performed By: #### U RC #### [facility] [address] [place] [address] Education Program Associate: Beto Farah MD [facility] [address] [place] [address] [place] [address] Education Program Associate: Wilver Calvillo MD PROCALCITONINon 09-29-2024 PROCALCITONIN 1.48 ng/mL High <0.[address] [facility] Comment on above: Order Comment: <0.50 ng/mL - Low risk of severe sepsis and/or septic shock. <2.00 ng/mL - Recommend retesting within 6-24 hours. >2.00 ng/mL - High risk of sepsis and/or septic shock. Performed By: #### P TIP #### [facility] ([facility]) [address] [place] [address] VIR PROTIME AND INRon 09-29-2024 INR 1.4 High 0.9-1.[address] [facility] Comment on above: Performed By: #### P INR #### [facility] ([facility]) [address] [place] [address] VIR PT Coag (PPP) [Time] 15.9 s High 9.8-13.[address] [facility] Comment on above: Performed By: #### P INR #### [facility] ([facility]) [address] [place] [address] VIR PTon 09-29-2024 INR Coag (PPP) [Relative time] 1.4 {INR} Normal [facility] Comment on above: Result Comment: Therapeutic Range: Moderate Anticoagulant Intensity: INR = 2.0-3.0 High Anticoagulant Intensity: INR = 2.5-3.5 Performed By: #### P TT, PT #### [facility] [address] [place] [address] [place] [address] Education Program Associate: Wilver Calvillo MD PT Coag (PPP) [Time] 17.0 s High 11.7-14.1 [facility] Comment on above: Performed By: #### P TT, PT #### [facility] [address] [place] [address] Education Program Associate: Wilver Calvillo MD PTTon 09-29-2024 aPTT Coag (Bld) [Time] 33.6 s [facility] Comment on above: IV Heparin Therapy Range: 62.0-94.0 [facility] Protime & INRon 09-29-2024 INR Coag (Platelet poor plasma or blood) [Relative time] 1.4 High 0.9 - 1.2 [facility] Interpretation and review of laboratory results Abnormal [facility] PT Coag (PPP) [Time] 15.9 s High [facility] Protime-INRon 09-29-2024 INR Coag (PPP) [Relative time] 1.4 {INR} [facility] Comment on above: Therapeutic Range: Moderate Anticoagulant Intensity: INR = 2.0-3.0 High Anticoagulant Intensity: INR = 2.5-3.5 Interpretation and review of laboratory results Abnormal [facility] PT Coag (PPP) [Time] 17.0 s High [facility] REPEATED ABORHon 09-29-2024 ABO_INTEP A [facility] Comment on above: Performed By: #### A JULIET #### [facility] ([facility]) [address] [place] [address] VIR RH_INTEP Positive [facility] Comment on above: Performed By: #### A JULIET #### [facility] ([facility]) [address] [place] [address] VIR TYPE AND SCREENon 09-29-2024 ABO_INTEP A [facility] Comment on above: Performed By: #### T SC #### [facility] ([facility]) [address] [place] [address] VIR RH_INTEP Positive [facility] Comment on above: Performed By: #### T SC #### [facility] ([facility]) [address] [place] [address] VIR Type and screen(includes ind irect jesenia)on 09-29-2024 ABO A [facility] Rh Nom (Bld) Positive [facility] APTTon 09-28-2024 aPTT Coag (Bld) [Time] 31.8 s Normal 26.8-34.8 [facility] Comment on above: Result Comment: IV Heparin Therapy Range: 62.0-94.0 Performed By: #### L ACDS #### [facility] [address] [place] [address] Education Program Associate: Wilver Calvillo MD CBC auto differentialon 05-0 Basophils (Bld) [#/Vol] 0 10*3/uL [facility] Basophils/100 WBC (Bld) 0 % 0 - 2 % [facility] Eosinophils (Bld) [#/Vol] 0.06 10*3/uL [facility] Eosinophils/100 WBC (Bld) 1 % 1 - 4 % [facility] Erythrocyte distribution width (RBC) [Ratio] 14 % 11.8 - 14.4 % [facility] Hematocrit (Bld) [Volume fraction] 25.2 % Low 36.3 - 47.1 % [facility] Hemoglobin (Bld) [Mass/Vol] 8.1 g/dL Low 11.9 - 15.1 g/dL [facility] Immature granulocytes (Bld) [#/Vol] 0 10*3/uL [facility] Immature granulocytes/100 WBC (Bld) 0 % 0 [facility] Interpretation and review of laboratory results Abnormal [facility] Lymphocytes/100 WBC (Bld) 11 % Low 24 - 43 % [facility] Lymphocytes/100 WBC (Bld) 0.63 % Low [facility] MCH (RBC) [Entitic mass] 29.8 pg 25.2 - 33.5 pg [facility] MCHC (RBC) [Mass/Vol] 32.1 g/dL 28.4 - 34.8 g/dL [facility] MCV (RBC) [Entitic vol] 92.6 fL 82.6 - 102.9 fL [facility] Monocytes/100 WBC (Bld) 4 % 3 - 12 % [facility] Monocytes/100 WBC (Bld) 0.23 % [facility] Morphology Padilla (Bld) [Interp] ANISOCYTOSIS PRESENT [facility] [place] (Bld) [Interp] Platelet scan shows Decreased Platelets [facility] Neutrophils/100 WBC (Bld) 84 % High 36 - 65 % [facility] Nucleated RBC/100 WBC (Bld) [Ratio] 0 % 0.0 per 100 WBC [facility] Platelet, Fluorescence 92 Low [facility] Platelets (Bld) [#/Vol] See Reflexed IPF Result [facility] Platelets reticulated/100 platelets Auto (Bld) 4.1 % 1.1 - 10.3 % [facility] RBC (Bld) [#/Vol] 2.72 10*6/uL Low 3.95 - 5.1 1 m/uL [facility] Segmented neutrophils/100 WBC (Bld) 4.78 % [facility] WBC other (Bld) [#/Vol] 5.7 [facility] CBC with Diffon 09-28-2024 Abs. Basophil 0.00 k/uL Normal 0.0-0.2 [facility] Comment on above: Performed By: #### U RC #### [address] [place] [address] Education Program Associate: Beto Farah MD [facility] [address] [place] [address] Dr. [place] [phone] Education Program Associate: Wilver Calvillo MD Abs.Imm.Granulocyte 0.00 k/uL Normal 0.00-0.30 [facility] Comment on above: Performed By: #### U RC #### [address] [place] [address] Education Program Associate: Beto Farah MD [facility] [address] [place] [address] Dr. [place] [phone] Education Program Associate: Wilver Calvillo MD Abs.Neutrophil (Seg) 4.78 k/uL Normal 1.50-8.10 [facility] Comment on above: Performed By: #### U RC #### [address] [place] [address] Education Program Associate: Beto Farah MD [facility] [address] [place] [address] Dr. [place] [phone] Education Program Associate: Wilver Calvillo MD Basophils/100 WBC (Bld) 0 % Normal 0-2 [facility] Comment on above: Performed By: #### U RC #### [address] [address] Education Program Associate: Beto Farah MD [facility] [address] [place] [address] Dr. [place] [phone] Education Program Associate: Wilver Calvillo MD Eosinophils (Bld) [#/Vol] 0.06 10*3/uL Normal 0.00-0.44 [facility] Comment on above: Performed By: #### U RC #### [address] [address] Education Program Associate: Beto Farah MD [address] [place] [phone] Education Program Associate: Wilver Calvillo MD Eosinophils/100 WBC (Bld) 1 % Normal 1-4 [facility] Comment on above: Performed By: #### U RC #### [address] [address] Education Program Associate: Beto Farah MD [address] [place] [phone] Education Program Associate: Wilver Calvillo MD Immature granulocytes/100 WBC (Bld) 0 % Normal 0 [facility] Comment on above: Performed By: #### U RC #### [address] [address] Education Program Associate: Beto Farah MD [facility] [address] [place] [address] Dr. [place] [phone] Education Program Associate: Wilver Calvillo MD Lymphocytes (Bld) [#/Vol] 0.63 10*3/uL Low 1.10-3.70 [facility] Comment on above: Performed By: #### U RC #### [address] [address] Education Program Associate: Beto Farah MD [facility] [address] [place] [address] Dr. [place] [phone] Education Program Associate: Wilver Calvillo MD Lymphocytes/100 WBC (Bld) 11 % Low 24-43 [facility] Comment on above: Performed By: #### U RC #### [facility] [address] [place] [address] Education Program Associate: Beto Farah MD [facility] [address] [place] [address] Dr. [place], [place] [phone] Education Program Associate: Wilver Calvillo MD Monocytes (Bld) [#/Vol] 0.23 10*3/uL Normal 0.10-1.20 [facility] Comment on above: Performed By: #### U RC #### [address] [address] Education Program Associate: Beto Farah MD [address] [place] [phone] Education Program Associate: Wilver Calvillo MD Monocytes/100 WBC (Bld) 4 % Normal 3-12 [facility] Comment on above: Performed By: #### U RC #### [facility] [address] [place] [address] Education Program Associate: Beto Farah MD [address] [place] [address] Education Program Associate: Wilver Calvillo MD Morphology Padilla (Bld) [Interp] ANISOCYTOSIS Normal [facility] Comment on above: Result Comment: PRES ENT Platelet scan shows Decreased Platelets Performed By: #### U RC #### [facility] [address] [place] [address] Education Program Associate: Beto Farah MD [facility] [address] [place] [address] Dr. [place], [place] [phone] Education Program Associate: Wilver Calvillo MD Neutrophil (Seg) 84 % High 36-65 [facility] Comment on above: Performed By: #### U RC #### [facility] [address] [place] [address] Education Program Associate: Beto Farah MD [facility] [address] [place] [address] Dr. [place], [place] [phone] Education Program Associate: Wilver Calvillo MD Erythrocyte distribution width (RBC) [Ratio] 14.0 % Normal 11.8-14.4 [facility] Comment on above: Performed By: #### U RC #### [address] [place] [address] Education Program Associate: Beto Farah MD [address] [place] [phone] Education Program Associate: Wilver Calvillo MD Hematocrit (Bld) [Volume fraction] 25.2 % Low 36.3-47.1 [facility] Comment on above: Performed By: #### U RC #### [facility] [address] [place] [address] Education Program Associate: Beto Farah MD [facility] [address] [place] [address] Dr. [place] [phone] Education Program Associate: Wilver Calvillo MD Hemoglobin (Bld) [Mass/Vol] 8.1 g/dL Low 11.9-15.1 [facility] Comment on above: Performed By: #### U RC #### [address] [address] Education Program Associate: Beto Farah MD [facility] [address] [place] [address] [place] [address] Education Program Associate: Wilver Calvillo MD MCH (RBC) [Entitic mass] 29.8 pg Normal 25.2-33.5 [facility] Comment on above: Performed By: #### U RC #### [facility] [address] [place] [address] Education Program Associate: Beto Farah MD [address] [place], [place] [phone] Education Program Associate: Wilver Calvillo MD MCHC (RBC) [Mass/Vol] 32.1 g/dL Normal 28.4-34.8 [facility] Comment on above: Performed By: #### U RC #### [address] [address] Education Program Associate: Beto Farah MD [address] [place] [phone] Education Program Associate: Wilver Calvillo MD MCV (RBC) [Entitic vol] 92.6 fL Normal 82.6-102.9 [facility] Comment on above: Performed By: #### U RC #### [address] [address] Education Program Associate: Beto Farah MD [address] [place] [phone] Education Program Associate: Wilver Calvillo MD NRBC Automated 0.0 per 100 WBC Normal 0.0 [facility] Comment on above: Performed By: #### U RC #### [address] [address] Education Program Associate: Beto Farah MD [address] [place] [phone] Education Program Associate: Wilver Calvillo MD Platelet Count See Reflexed IPF Result Normal 010-[address] [place] [address] Comment on above: Performed By: #### U RC #### [address] [address] Education Program Associate: Beto Farah MD [address] [place] [phone] Education Program Associate: Wilver Calvillo MD Platelet, Fluoresc. 92 k/uL Low 138-069 [facility] Comment on above: Performed By: #### U RC #### [address] [place] [address] Education Program Associate: Beto Farah MD [address] [place] [address] Education Program Associate: Wilver Calvillo MD PLT, Immature Fract. 4.1 % Normal 1.1-10.3 [facility] Comment on above: Performed By: #### U RC #### [address] [address] Education Program Associate: Beto Farah MD [address] [place] [address] Education Program Associate: Wilver Calvillo MD RBC (Bld) [#/Vol] 2.72 10*6/uL Low 3.95-5.11 [facility] Comment on above: Performed By: #### U RC #### [address] [address] Education Program Associate: Beto Farah MD [address] [place] [address] Education Program Associate: Wilver Calvillo MD WBC (Bld) [#/Vol] 5.7 10*3/uL Normal 3.5-11.3 [facility] Comment on above: Performed By: #### U RC #### [address] [address] Education Program Associate: Beto Farah MD [address] [place] [phone] Education Program Associate: Wilver Calvillo MD CTA CHEST ABDOMEN PELVIS W C [facility] 09-28-2024 CTA CHEST ABDOMEN PELVIS W CONTRAST [...] Rylie Jackson MD 09/28/24 Final result Normal [facility] CTA Chest vessels and Abdomi nal [...] or reactive airways disease. 5. Colonic diverticulosis. PN RIS CONSOLIDATED EXAMINATION: CTA OF THE CHEST, [...] fracture or suspicious bone lesion is identified. [facility] RIS CONSOLIDATED Rylie Jackson MD - 09/28/2024 [...] or reactive airways disease. 5. Colonic diverticulosis. [facility] Radiology Study observation (narrative) [facility] CTA Chest vessels and Abdomi nal vessels and Pelvis vessels W contrast IVOrdered By: Rylie Jackson on 09-28-2024 [facility] Work Phone: Comp Metabolic Pr/rfx MGon 0 09-28-2024 Albumin [Mass/Vol] 3.9 g/dL Normal 3.5-5.2 [facility] Comment on above: Performed By: #### U RC #### [facility] [address] [place], [place] [phone] Education Program Associate: Beto Farah MD [facility] [address] [place] [address] [place] [address] Education Program Associate: Wilver Calvillo MD Albumin/Glob Ratio 1.4 Normal 1.0-2.5 [facility] Comment on above: Performed By: #### U RC #### [facility] [address] [place] [address] Education Program Associate: Beto Farah MD [facility] [address] [place] [address] Education Program Associate: Wilver Calvillo MD Alkaline Phos 209 U/L High 35-104 [facility] Comment on above: Performed By: #### U RC #### [facility] [address] [place] [address] Education Program Associate: Beto Farah MD [address] [place], [place] [phone] Education Program Associate: Wilver Calvillo MD ALT [Catalytic activity/Vol] 86 U/L [address] [facility] Comment on above: Performed By: #### U RC #### [address] [address] Education Program Associate: Beto Farah MD [address] [place], [place] [phone] Education Program Associate: Wilver Calvillo MD Anion gap [Moles/Vol] 13 mmol/L Normal 9-16 [facility] Comment on above: Performed By: #### U RC #### [address] [address] Education Program Associate: Beto Farah MD [address] [place], [place] [phone] Education Program Associate: Wilver Calvillo MD AST [Catalytic activity/Vol] 110 U/L [address] Comment on above: Performed By: #### U RC #### [address] [address] Education Program Associate: Beto Farah MD [address] [place] [address] Education Program Associate: Wilver Calvillo MD Bilirubin [Mass/Vol] 1.7 mg/dL [facility] 0.00-1.20 [facility] Comment on above: Performed By: #### U RC #### [facility] [address] [place] [address] Education Program Associate: Beto Farah MD [facility] [address] [place] [address] [place] [phone] Education Program Associate: Wilver Calvillo MD BUN/CRE Ratio 34 High 9-20 [facility] Comment on above: Performed By: #### U RC #### [facility] [address] [place] [address] Education Program Associate: Beto Farah MD [facility] [address] [place] [address] Dr. [place], [place] [phone] Education Program Associate: Wilver Calvillo MD Calcium [Mass/Vol] 9.0 mg/dL Normal 8.6-10.4 [facility] Comment on above: Performed By: #### U RC #### [facility] [address] [place] [address] Education Program Associate: Beto Farah MD [facility] [address] [place] [address] Dr. [place], [place] [phone] Education Program Associate: Wilver Calvillo MD Chloride [Moles/Vol] 104 mmol/L Normal 98-107 [facility] Comment on above: Performed By: #### U RC #### [facility] [address] [place] [address] Education Program Associate: Beto Farah MD [facility] [address] [place] [address] Dr. [place], [place] [phone] Education Program Associate: Wilver Calvillo MD CO2 [Moles/Vol] 21 mmol/L Normal 20-31 [facility] Comment on above: Performed By: #### U RC #### [facility] [address] [place] [address] Education Program Associate: Beto Farah MD [facility] [address] [place] [address] Dr. [place], [place] [phone] Education Program Associate: Wilver Calvillo MD Creatinine [Mass/Vol] 1.7 mg/dL High 0.50-0.90 [facility] Comment on above: Performed By: #### U RC #### [facility] [address] [place] [address] Education Program Associate: Beto Farah MD [facility] [address] [place] [address] Dr. [place], [place] [phone] Education Program Associate: Wilver Calvillo MD GFR/1.73 sq M.predicted among non-blacks MDRD (S/P/Bld) [Vol rate/Area] 31 mL/min/{1.73_m2} Low >60 [facility] Comment on above: Result Comment: These [...] secretion. Performed By: #### U RC #### [address] [place] [address] Education Program Associate: Beto Farah MD [facility] [address] [place] [address] Dr. [place], [place] [phone] Education Program Associate: Wilver Calvillo MD Glucose [Mass/Vol] 218 mg/dL High 74-99 [facility] Comment on above: Performed By: #### U RC #### [address] [address] Education Program Associate: Beto Farah MD [facility] [address] [place] [address] Dr. [place], [place] [phone] Education Program Associate: Wilver Calvillo MD Potassium [Moles/Vol] 5.0 mmol/L Normal 3.7-5.3 [facility] Comment on above: Performed By: #### U RC #### [facility] [address] [place] [address] Education Program Associate: Beto Farah MD [facility] [address] [place] [address] Dr. [place], [place] [phone] Education Program Associate: Wilver Calvillo MD Protein [Mass/Vol] 6.7 g/dL Normal 6.6-8.7 [facility] Comment on above: Performed By: #### U RC #### [facility] [address] [place] [address] Education Program Associate: Beto Farah MD [facility] [address] [place] [address] Education Program Associate: Wilver Calvillo MD Sodium [Moles/Vol] 138 mmol/L Normal 136-145 [facility] Comment on above: Performed By: #### U RC #### [facility] [address] [place] [address] Education Program Associate: Beto Farah MD [facility] [address] [place] [address] Education Program Associate: Wilver Calvillo MD Urea nitrogen [Mass/Vol] 57 mg/dL High 8-23 [facility] Comment on above: Performed By: #### U RC #### [facility] [address] [place] [address] Education Program Associate: Beto Farah MD [facility] [address] [place] [address] [place] [address] Education Program Associate: Wilver Calvillo MD Comprehensive Metabolic Pane l w/ Reflex to [facility] 09-28-2024 Albumin [Mass/Vol] 3.9 g/dL 3.5 - 5.2 g/dL [facility] Albumin/Globulin [Mass ratio] 1.4 {ratio} 1.0 - 2.5 [facility] ALP [Catalytic activity/Vol] 209 U/L High 35 - 104 U/L [facility] ALT [Catalytic activity/Vol] 86 U/L High 10 - 35 U/L [facility] Anion gap [Moles/Vol] 13 mmol/L 9 - 16 mmol/L [facility] AST [Catalytic activity/Vol] 110 U/L High 10 - 35 U/L [facility] Bilirubin [Mass/Vol] 1.7 mg/dL High 0.00 - 1.20 mg/dL [facility] Calcium [Mass/Vol] 9 mg/dL 8.6 - 10. 4 mg/dL [facility] Chloride [Moles/Vol] 104 mmol/L 98 - 107 mmol/L [facility] CO2 [Moles/Vol] 21 mmol/L 20 - 31 mmol/L [facility] Creatinine [Mass/Vol] 1.7 mg/dL High 0.50 - 0.90 mg/dL [facility] Alma Smyth Filt Rate 31 Low - PINF [facility] Comment on above: These results [...] 218 mg/dL High 74 - 99 mg/dL [facility] Interpretation and review of laboratory results Abnormal [facility] Potassium [Moles/Vol] 5 mmol/L 3.7 - 5.3 mmol/L [facility] Protein [Mass/Vol] 6.7 g/dL 6.6 - 8.7 g/dL [facility] Sodium [Moles/Vol] 138 mmol/L 136 - 145 mmol/L [facility] Urea nitrogen [Mass/Vol] 57 mg/dL High 8 - 23 mg/dL [facility] Urea nitrogen/Creatinine [Mass ratio] 34 mg/mg High 9 - 20 [facility] EKG Rhythm Stripon [facility] Lactate, Sepsison 09-28-2024 Interpretation and review of laboratory results Abnormal [facility] Lactate (BldV) [Moles/Vol] 2 mmol/L High 0.5 - 1.9 mmol/L [facility] Lactic Acid, Sepsis 2.0 mmol/L High 0.5-1.9 [facility] Comment on above: Performed By: #### L ACDS #### [facility] [address] [place] [address] Education Program Associate: Wilver Calvillo MD Interpretation and review of laboratory results Abnormal [facility] Lactate (BldV) [Moles/Vol] 2.2 mmol/L High 0.5 - 1.9 mmol/L [facility] Lactic Acid, Sepsis 2.2 mmol/L High 0.5-1.9 [facility] Comment on above: Performed By: #### L ACDS #### [facility] [address] [place] [address] Education Program Associate: Wilver Calvillo MD Lipaseon 09-28-2024 Lipase [Catalytic activity/Vol] 42 U/L 13 - 60 U/L [facility] Lipase [Catalytic activity/Vol] 42 U/L Normal -60 [facility] Comment on above: Performed By: #### L ACDS #### [facility] [address] [place] [address] Education Program Associate: Wilver Calvillo MD Microscopic Urinalysison Epithelial cells LM.HPF (Urine sed) [#/Area] 0 TO 2 [facility] Interpretation and review of laboratory results Abnormal [facility] Mucus Ql (Urine sed) TRACE Abnormal None [facility] RBC LM.HPF (Urine sed) [#/Area] None [facility] WBC LM.HPF (Urine sed) [#/Area] 0 TO 2 [facility] PTon 09-28-2024 INR Coag (PPP) [Relative time] 1.2 {INR} Normal [facility] Comment on above: Result Comment: Therapeutic Range: Moderate Anticoagulant Intensity: INR = 2.0-3.0 High Anticoagulant Intensity: INR = 2.5-3.5 Performed By: #### L ACDS #### [facility] [address] [place] [address] Education Program Associate: Wilver Calvillo MD PT Coag (PPP) [Time] 14.6 s High 11.7-14.1 [facility] Comment on above: Performed By: #### L ACDS #### [facility] [address] [place] [address] Education Program Associate: Wilver Calvillo MD PTTon 09-28-2024 aPTT Coag (Bld) [Time] 31.8 s [facility] Comment on above: IV Heparin Therapy Range: 62.0-94.0 [facility] Procalcitoninon 09-28-2024 Interpretation and review of laboratory results Abnormal [facility] Procalcitonin [Mass/Vol] 1.16 ng/mL High 0.00 - 0.09 ng/mL [facility] Comment on above: Suspected Sepsis: <0.50 ng/mL [...] entered into the Change in Procalcitonin Calculator ([email or web address]-[email or web address]) to determine the patient's Mortality Risk Prognosis In healthy neonates, plasma Procalcitonin (PCT) concentrations increase gradually after , reaching peak values at about 24 hours of age then decrease to normal values below 0.5 ng/mL by 48-72 hours of age. [facility] Procalcitonin 1.16 ng/mL High 0.00-0.09 [facility] Comment on above: Result Comment: Suspected Sepsis: [...] entered into the Change in Procalcitonin Calculator ([email or web address].[email or web address]) to determine the patient's Mortality Risk Prognosis In healthy neonates, plasma Procalcitonin (PCT) concentrations increase gradually after , reaching peak values at about 24 hours of age then decrease to normal values below 0.5 ng/mL by 48-72 hours of age. Performed By: #### U RC #### [address] [phone] Education Program Associate: Beto Farah MD [address] [place] [address] Education Program Associate: Wilver Calvillo MD Protime-INRon 09-28-2024 INR Coag (PPP) [Relative time] 1.2 {INR} [facility] Comment on above: Therapeutic Range: Moderate Anticoagulant Intensity: INR = 2.0-3.0 High Anticoagulant Intensity: INR = 2.5-3.5 Interpretation and review of laboratory results Abnormal [facility] PT Coag (PPP) [Time] 14.6 s High [facility] Type + Screenon 09-28-2024 Type + Screen Sample Expiration 10/01/2024,5981 Arm Band Number [id number] ABO/Rh(D) A POSITIVE Antibody Screen NEGATIVE Unit Number [id number] Blood Component Type Leukocyte Reduced Red Cell Unit Division 00 Status of Unit TRANSFUSED Transfusion Status OK TO TRANSFUSE Crossmatch Result COMPATIBLE Unit Number [id number] Blood Component Type Leukocyte Reduced Red Cell Unit Division 00 Status of Unit TRANSFUSED Transfusion Status OK TO TRANSFUSE Crossmatch Result COMPATIBLE Normal [facility] Comment on above: Performed By: #### L ACDS #### [facility] [address] [place] [address] [place] [address] Education Program Associate: Wilver Calvillo MD UA w/Reflex Cultureon 2024 Bilirubin, SemiQt,Ur SMALL Abnormal NEG [facility] Comment on above: Performed By: #### U RC #### [address] [address] Education Program Associate: Beto Farah MD [facility] [address] [place] [address] Dr. [place], [place] [phone] Education Program Associate: Wilver Calvillo MD Blood, Urine Negative Normal [facility] Comment on above: Performed By: #### U RC #### [address] [address] Education Program Associate: Beto Farah MD [address] [place], [place] [phone] Education Program Associate: Wilver Calvillo MD Clarity (U) Clear Normal CLEAR [facility] Comment on above: Performed By: #### U RC #### [address] [address] Education Program Associate: Beto Farah MD [facility] [address] [place] [address] [place] [address] Education Program Associate: Wilver Calvillo MD Color (U) Yellow Normal YEL [facility] Comment on above: Performed By: #### U RC #### [address] [address] Education Program Associate: Beto Farah MD [facility] [facility] [address] [place] [address] Dr. [place], [place] [phone] Education Program Associate: Wilver Calvillo MD Glucose Ql (U) Negative Normal NEG [facility] Comment on above: Performed By: #### U RC #### [address] [address] Education Program Associate: Beto Farah MD [facility] [address] [place] [address] [address], [place] [phone] Education Program Associate: Wilver Calvillo MD Ketones Ql (U) Negative Normal NEG [facility] Comment on above: Performed By: #### U RC #### [place] [place] [address] Education Program Associate: Beto Farah MD [address] [place], [place] [phone] Education Program Associate: Wilver Calvillo MD Leukocyte esterase Test strip Ql (U) Negative Normal NEG [facility] Comment on above: Performed By: #### U RC #### [address] [address] Education Program Associate: Beto Farah MD [address] [place] [address] Education Program Associate: Wilver Calvillo MD Nitrite,Ur Negative Normal NEG [facility] Comment on above: Performed By: #### U RC #### [address] [address] Education Program Associate: Beto Farah MD [address] [place] [phone] Education Program Associate: Wilver Calvillo MD PH,Ur 6.0 Normal 5.0-9.0 [facility] Comment on above: Performed By: #### U RC #### [address] [address] Education Program Associate: Beto Farah MD [address] [place] [address] Education Program Associate: Wilver Calvillo MD Protein Ql (U) Negative Normal NEG [facility] Comment on above: Performed By: #### U RC #### [address] [address] Education Program Associate: Beto Farah MD [facility] [address] [place] [address] [place]. [place], [place] [phone] Education Program Associate: Wilver Calvillo MD Spec. [place],Ur 1.010 Normal 1.010-1.020 [facility] Comment on above: Performed By: #### U RC #### [facility] [address] [place], [place] [phone] Education Program Associate: Beto Farah MD [facility] [address] [place] [address] Education Program Associate: Wilver Calvillo MD Urobilinogen,Ur Normal Normal 0.0-1.0 [facility] Comment on above: Performed By: #### U #### [facility] [address] [place] [address] Education Program Associate: Beto Farah MD [facility] [address] [place] [address] [place] [address] Education Program Associate: Wilver Calvillo MD Urinalysis with Reflex to Cu ltureon 09-28-2024 Bilirubin Ql (U) SMALL Abnormal NEGATIVE [facility] Clarity (U) Clear Clear [facility] Color (U) Yellow Yellow [facility] Glucose Test strip (U) [Mass/Vol] Negative NEGATIVE mg/dL [facility] Hemoglobin Auto test strip Ql (U) Negative NEGATIVE [facility] Interpretation and review of laboratory results Abnormal [facility] Ketones (U) [Mass/Vol] Negative NEGATIVE mg/dL [facility] Leukocyte esterase Test strip Ql (U) Negative NEGATIVE [facility] Nitrite Ql (U) Negative NEGATIVE [facility] pH (U) 6 [pH] 5.0 - 9.0 [facility] Protein (U) [Mass/Vol] Negative NEGATIVE mg/dL [facility] Specific gravity (U) [Rel density] 1.01 1.010 - 1.020 [facility] Urobilinogen Qn (U) Normal 0.0 - 1. 0 EU/dL [facility] Urinalysis,Microon 5 Epithelial cells LM Ql (Urine sed) 0 TO 2 Normal 0-25 [facility] Comment on above: Performed By: #### U RC #### [facility] [address] [place] [address] Education Program Associate: Beto Farah MD [address] [place] [address] Education Program Associate: Wilver Calvillo MD Mucus Strands TRACE Abnormal NONE [facility] Comment on above: Performed By: #### U RC #### [address] [address] Education Program Associate: Beto Farah MD [facility] [address] [place] [address] [place]. [place], [place] [phone] Education Program Associate: Wilver Calvillo MD Urine RBC's None Normal 0-2 [facility] Comment on above: Performed By: #### U RC #### [address] [address] Education Program Associate: Beto Farah MD [address] [place], [place] [phone] Education Program Associate: Wilver Calvillo MD Urine WBC's 0 TO 2 Normal 0-5 [facility] Comment on above: Performed By: #### U RC #### [facility] [address] [place] [address] Education Program Associate: Beto Farah MD [address] [place] [address] Education Program Associate: Wilver Calvillo MD HEPATIC WEDGE PRESSURE/VENOo n [...] medication(s), I spent 33 minutes of continuous lbqn-df-vjmy time with the patient. COMPARISON: No prior [...] wire was advanced into the IVC. A 10-Togolese by 40 cm hemostatic sheath was placed. [...] Rad Dose: 12 Rad Dose Measurement: mGy RAP Indexs RAP Indexs Time Date Event Details User 11:26 AM 09/20/24 Timeout: Sign-in Signed by Smita Pyle RN at 09/20/2024 11:26 AM 11:34 AM 09/20/24 fentaNYL (SUBLIMAZE) injection 0-300 mcg Ordered and Given 50 mcg Given Rate: 0 Route: Intravenous 11:34 AM 09/20/24 midazolam (VERSED) injection 0-10 mg Ordered and Given 1 mg Gi (more content not included)... Normal [facility] TRANSCATHETER BIOPSYon 09-21 TRANSCATHETER BIOPSY EXAM: IR [...] medication(s), I spent 33 minutes of continuous ywbe-si-cpbb time with the patient. COMPARISON: No prior [...] wire was advanced into the IVC. A 10-Togolese by 40 cm hemostatic sheath was placed. [...] mg Gi (more content not included)... Normal [facility] GENERAL PROCEDUREon 09-21-19 [facility] Radiology Study observation (narrative) [facility] GLUCOSE POCon 09-20-2024 Glucose [Mass/Vol] 133 mg/dL 70 - 179 mg/dL [facility] POC Sample Type VENO [facility] Test performed at address of the patient encounter. [facility] SURG PATH REQUESTon 09-21-19 Case Report [facility] Comment on above: Result Comment: Surg ica Pathology Report Case: [id number] Authorizing Provider: ERNIE Duke Collected: 09/20/2024 12:08 PM Ordering Location: [facility] Received: 09/20/2024 12:24 PM Hospital Pathologist: Jj Crowell MD Specimen: Liver Non-Tumor (medical) Performed By: #### S URGP #### [facility] (DEFAULT) [address] [place] [address] Clinical History 73 year old female w ith history of PBC, indeterminate hepatic fibrosis. [facility] Comment on above: Performed By: #### S URGP #### [facility] (DEFAULT) [address] [place] [address] Gross Description [facility] Comment on above: Result Comment: The specimen is received in one properly labeled container with the patient's name and accession number. A. The specimen is designated transjugular medical liver core biopsy and consists of five copeland soft tissue cores that range from 0.5 cm up to 1.6 cm in length, with an average diameter of 0.1 cm. TE 2 Lab Use Only: JobID [id number] Grosser for this case was: Judith Flores Performed By: #### S URGP #### [facility] (DEFAULT) [address] [place] [address] Microscopic Description [facility] Comment on above: Result Comment: A mi croscopic examination was performed. All controls show appropriate reactivity. All immunohistochemistry (IHC), in situ hybridization (LEONARDA), and histochemical tests were developed by and are performed at the [facility] Clinical Laboratory, Histology and IHC Lab, [address] [place] [address]. All Immunofluorescent (IF) tests were developed by and are performed at the [facility], Renal Division, [address] [place] [address]. All tests reported here, except for PD-L1, have not been cleared by or approved by the US Food and Drug Administration (FDA). The laboratory is regulated under CLIA as qualified to perform high-complexity testing. The tests are used for clinical purposes. They should not be regarded as investigational or for research. 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 Yes [address] [place] [address] Performed By: #### S URGP #### [facility] (DEFAULT) [address] [place] [address] Inpatient Clinical Summaryon 08-23-2024 Inpatient Clinical Summary [facility] Post-Acute Care Transfer Instructions PERSON INFORMATION Name: Ashlee Banerjee : 1950 [employer] Admitting Physician: Attending Physician: Sukumar FOSTER, Andrae Bradley PCP: Rafita FOSTER, Cooper Kirby Discharge Diagnosis: Comment: PATIENT EDUCATION INFORMATION Instructions: Medication Leaflets: Follow-up: MEDICATION LIST Medication Reconciliation at Discharge: New Medications [id number], [address], [place] [id number], [phone] omeprazole (omeprazole 40 mg oral delayed release [...] Last Dose: __ omega-3 polyunsaturated fatty acids (Han[place]-3 oral capsule) Last Dose: __ traZODone (traZODone [...] Patient?s Final Home Medication List Upon Discharge: [id number], [address], [place] [id number], [phone] omeprazole (omeprazole 40 mg oral delayed release [...] eyes every day. omega-3 polyunsaturated fatty acids (Hanover-3 oral capsule) traZODone (traZODone 50 mg oral [...] mg oral (more content not included)... Normal [facility] POC Glucose Randomon 025 Glucose [Mass/Vol] 134 mg/dL High 70-99 [facility] Comment on above: Performed By: #### C [id number] #### [address] [address] XR C-SPINE FLEX/EXT ONLY 2 V IEWSon [...] setting of retrolisthesis. MACRO: None Normal [facility] [facility] XR Cervical spine Lateral Vi ews [...] in the setting of retrolisthesis. 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 LV: [id number] Ms Rubio returns today now 1 year [...] lateral flexion-extension cervical spine xrays. Normal [facility] Cult,Urineon 04-01-2024 Cult,Urine Specimen Description .CLEAN [...] Tobramycin <=1 SUSCEPTIBLE Trimethoprim/Sulfa <=20 SUSCEPTIBLE Susceptible [facility] Comment on above: Performed By: #### U #### [facility] [address] [place] [address] Education Program Associate: Beto Farah MD [facility] [address] [place] [address] Education Program Associate: Wilver Calvillo MD Urinalysis w/ Microon 2023 Bacteria 2+ Abnormal NONE [facility] Comment on above: Performed By: #### L ACDS #### [facility] [address] [place] [address] Education Program Associate: Wilver Calvillo MD Bilirubin, SemiQt,Ur Negative Normal NEG [facility] Comment on above: Performed By: #### L ACDS #### [facility] [address] [place] [address] Education Program Associate: Wilver Calvillo MD Blood, Urine Negative Normal NEG [facility] Comment on above: Performed By: #### L ACDS #### [facility] [address] [place] [address] Education Program Associate: Wilver Calvillo MD Clarity (U) Clear Normal CLEAR [facility] Comment on above: Performed By: #### L ACDS #### [facility] [address] [place], [place] [phone] Education Program Associate: Wilver Calvillo MD Color (U) Yellow Normal YEL [facility] Comment on above: Performed By: #### L ACDS #### [facility] [address] [place], [place] [phone] Education Program Associate: Wilver Calvillo MD Epithelial cells LM Ql (Urine sed) 0 TO 2 Normal 0-25 [facility] Comment on above: Performed By: #### L ACDS #### [facility] [address] [place] [address] Education Program Associate: Wilver Calvillo MD Glucose Ql (U) Negative Normal NEG [facility] Comment on above: Performed By: #### L ACDS #### [facility] [address] [place] [address] Education Program Associate: Wilver Calvillo MD Ketones Ql (U) Negative Normal NEG [facility] Comment on above: Performed By: #### L ACDS #### [facility] [address] [place] [address] [place] [address] Education Program Associate: Wilver Calvillo MD Leukocyte esterase Test strip Ql (U) Negative Normal NEG [facility] Comment on above: Performed By: #### L ACDS #### [facility] [address] [place] [address] Dr. [place], [place] [phone] Education Program Associate: Wilver Calvillo MD Nitrite,Ur Negative Normal NEG [facility] Comment on above: Performed By: #### L ACDS #### [facility] [address] [place] [address] [place] [address] Education Program Associate: Wilver Calvillo MD PH,Ur 5.5 Normal 5.0-9.0 [facility] Comment on above: Performed By: #### L ACDS #### [address] [place], [place] [phone] Education Program Associate: Wilver Calvillo MD Protein Ql (U) Negative Normal NEG [facility] Comment on above: Performed By: #### L ACDS #### [facility] [address] [place] [address] [place] [address] Education Program Associate: Wilver Calvillo MD Spec. [place],Ur 1.025 High 1.010-1.020 [facility] Comment on above: Performed By: #### L ACDS #### [facility] [address] [place] [address] [place] [address] Education Program Associate: Wilver Calvillo MD Urine RBC's 0 TO 2 Normal 0-2 [facility] Comment on above: Performed By: #### L ACDS #### [facility] [address] [place] [address] [place] [address] Education Program Associate: Wilver Calvillo MD Urine WBC's 0 TO 2 Normal 0-5 [facility] Comment on above: Performed By: #### L ACDS #### [facility] [address] [place] [address] Education Program Associate: Wilver Calvillo MD Urobilinogen,Ur Normal Normal 0.0-1.0 [facility] Comment on above: Performed By: #### L ACDS #### [facility] [address] [place] [address] Education Program Associate: Wilver Calvillo MD Urinalysis with Microscopico n 03-28-2024 Bacteria LM Ql (Urine sed) 2+ Abnormal None [facility] Bilirubin Ql (U) Negative NEGATIVE [facility] Seco urs [facility] Clarity (U) Clear Clear [facility] Color (U) Yellow Yellow [facility] Epithelial cells LM.HPF (Urine sed) [#/Area] 0 TO 2 [facility] Glucose Test strip (U) [Mass/Vol] Negative NEGATIVE mg/dL [facility] Hemoglobin Auto test strip Ql (U) Negative NEGATIVE [facility] Interpretation and review of laboratory results Abnormal [facility] Ketones (U) [Mass/Vol] Negative NEGATIVE mg/dL [facility] Leukocyte esterase Test strip Ql (U) Negative NEGATIVE [facility] Nitrite Ql (U) Negative NEGATIVE [place] [facility] pH (U) 5.5 [pH] 5.0 - 9.0 [facility] Protein (U) [Mass/Vol] Negative NEGATIVE mg/dL [facility] RBC LM.HPF (Urine sed) [#/Area] 0 TO 2 [facility] [place] Specific gravity (U) [Rel density] 1.025 High 1.010 - 1.020 [facility] Urobilinogen Qn (U) Normal 0.0 - 1. 0 EU/dL [facility] WBC LM.HPF (Urine sed) [#/Area] 0 TO 2 [facility] Secours [facility] XR Hip - left 3 Viewson 01-22 [...] dislocation. Impression: Unremarkable left total hip arthroplasty. [facility] Radiology Study observation (narrative) [facility] MAGR Intraoperative Recordon 01-31-2024 MAGR Intraoperative Record MAGR Intra-Op Record Summary Primary Physician: Finalized Date/Time: 01/31/24 12:58:14 Pt. Name: ASHLEE BANERJEEYo Bateman/Sex: 1950 FEMALE Med Rec #: [id number] Physician: KEITH GABRIEL DO Financial #: [id number] Pt. Type: I Room/Bed: [facility] Admit/Disch: 12/23/23 05:40:58 - 12/27/23 16:10:00 Institution: [...] Draper, Lora RN Role Performed Anesthesiologist of Computer Repair Instructor Computer Repair Instructor Record Time In 12/23/23 07:41:00 12/23/23 07:41:00 12/23/23 07:41:00 Time Out 12/23/23 07:53:00 12/23/23 07:53:00 12/23/23 07:53:00 Procedure FASCIA ILIACA FASCIA ILIACA FASCIA ILIACA BLOCK(Left) BLOCK(Left) BLOCK(Left) Last Modified By: Caroel Jones RN 12/23/23 Carole Jones RN 12/23/23 [...] of injury related to positioning Skin Prep [facility] Pre-Care Text: A.30 Verifies allergies Im.270 Performs [...] Evaluates for sign (more content not included)... [facility] Coding Summaryon 12-29-2023 Coding Summary HTMLBase 64 DuwolmvbZTy8pIr+PGhlYWQ +FI0EXKJyR82bqSUmtX9oZ1 NMTElOSywgQVBQTElOSyIgb lSoIS0qrPGpEEBr IC8+ZV9fDLMbQfdeiOWej2N 8vFA9O65gfg2bABryyHU5FW RyBgSxahezh7jahTg1PIvoH mluOyBt VOHfuB59OAD1xN12Ce33cDS cvEWxa6bpaDj5FdItSQKzTU T2kIepTTpbl8RiHZJuG38xt JAre4A1 PBSeqCretPUxChKmbDH7eD1 lMJkhkwfxi2ctbubkFmo0xr 73uESwv2I2wAY3Z5UmdzQ7A GJvbGQg SwrpwTXLiJ6iudrra7ccexl iZyLiOGCzPZl0WTd8CXKakN zePhSiRF92TFV6PLEgclDrG 2FsLWFs dBjhAzF2y6J1Fx9DP2BTGke sB5UOAIWSZEyvgVW+PC90cj 19F1NmHjgzTjp7NSUbXWA6f QI1yP9y WFUfXLeyy8P4yUA0D5UnpoC tbn3qi5goPJLpAIowE18bbQ Kle8K0OGRwlAL5BXPwoQqlE iBzaG93 Oyc+FFGmpDlyd2DgHhblx8t lo9loxBo4PstbJNYizlIllS erXTD6r9XcAj0sGRGhyXG2s OR7jG0u FwTfSwH9FMaaE008WuEfnCB nNpiqX41uJ9BjlXS+PHRyPj f3BDJluYwsSF2rT3AuNYDly mctbGVm aNatAE9qKQXrcmiqYVBusX0 zIQVgO1g6InCzMbV1FVerB4 AuNSFuxlhvPu71kQ0dJpWuL xB3TKkr P7UxfnR7QKFrcDMaXIguEOY 6R88pr9F1TDKpDXByCLV7eT Y5kS3viMyowirjoWHvnVqfa mVydGlj BAkuNOxgC739PGMwgIrsIoI vZGluZyBEYXRlOiAgMDgvMD cvMjAyNDwvdGQ+VBXaYCT4g WxlPSAn pWJkHRkkAa4ozVcsnDziTZ7 bTUNgkyorLMVeiZ6sHPUcsE GdnKtqEY6cZIJytrdch905D iAxMHB0 WIJanLIyE2KveY8tSuBqUFF jCKJkS9IelUIlHPdmA559GA esQbA3AAPjenFxQ5TeSGHqx WduOiB0 u2Q6Ag4Gq7KtmpzpN9QmzJR wSdIhQdpwMOa3M3IhMpqniK I+LE40RVSfNO40IFb2DGG3e WxlPSdi IAZcC9ZwzV5eLmZkUKEeMXO kOyc+PHRhYmxlIHdpZHRoPS tzYFJoCiMiuIytAM5tYg4pG GVyLWNv sIdexNUqEvNcn2gmHQNdSCc iIZ2gmUrxX5DcyMA5SGTcs6 j7Ao04A75hM5OfjDC+PGNvb EF4hPF3 vA3bClOtShY8FCchT932ZnM toFBkQuhfw2uzu9xejYf6Bn K0UUSvzmMxhZoqICT9o9SsQ j32X87s IHdpZHRoPSIxNSUiIHZhbGl cxz3wjJ5aBx9+GXIkxOS9tW W1lS8qShBbTkD8FKbfF530U nRvcCIv Tlmrk0foa7xreIt9ImGmZJE mevMohQrvGHN9l6CtYr81Y4 MdvNspk8KfNoq7ry41gLAfg 8N6uJU3 N1XiGSGginzfbNGytJtjYF5 xRQRglswhDQPvbR7oBFQbP2 b5MrSkYsQ8THfnV0IdpgU0I GJvbGQg YFDrmQKHtC0idvezh2kjzaf kXmYgGKFgPQc3IQh2YSRhiY xeThTvXGX6JzA9WIF6oRKzg S9ksEgl kdpfvK4jMgq+FBP6kXLrxTP XSU8xMfuzjHU+TOIvWEZ0kS niFIucFYFjbF6oZRStK0m1C iAwLjA1 GGybA8VtfrD0ZPYnwYCmYPF jzVDYnH7ipwsrk0vqgohgJt EeJNGzXNo6KCj5XQMufAsmG iBsZWZ0 UnH3UWP2yWCqpQ4cbQtwcnd bmB8kOnl+AqrgxGuqTSI1AP p1H1EhTzc4QPLdeQsrJW9vi GFkZGlu Ni8tpDypbModDI5zMYTfgqg hm234KjKrs7zxTMWceEGiSQ edCBL4F51tj3R5SOMeOVZpZ IZ3hKF7 uZ5kxPzbhbkiaSZelZvagcC noPtzOCciAWryX066QDCbvD akIxIzSHa7L5QeGva9CUPzl QeqTJ9p xXEwTXvmCp8bhGqomOrdCF7 mWEJvzvvpz557WnQpv0krZT JwmGBoCUtgAFQ4G51bo1F6K CMwMDAw LXY0iED5nW2maKfkdnqmwEA mdDsgdmVydGljYWwtYWxpZ2 16LZNpvZgfOpUxdGk3W1EdZ gx9JODk mWzgLY5igQOjHEyhSj0orMv wpNzxCA8mHWErqfqlb909Ib Zzy3ikFQSeqITjQHxwPJL0S 12wo3A9 GJIwRDPkHJQ1lST2yI0ckSr nbjogbGVmdDsgdmVydGljYW pzUJszH113PBAbmPrzWxUzf GllbnQg QXrkIQw1L5LyYpgjxQV+PC9 2JINaNR76mMOxzXEic8bteJ q0OpQpWTIbLPF9gYboCCwuu 3JkZXIt M65xgALpu7O8RVEymStbbRX lApYsyUJ3hG2zRTnwvdjdv4 odavsiXefno1ynhz06jO62Y 29sIHdp ZHRoPSIzMCUiIHZhbGlnbj0 mbK3pKf8+RUTfgAU2gFJ9bT 5oOELgRdS6MBggZ069NtIhi CIvPjxj c6qcq5insOe0MnI9FGQjjtG lkMznKWB7y8MdBh55S78yTB dpZHRoPSIyMCUiIHZhbGlnb o4hyF1z Ii8+MHJomEM8eMZ2fM6bScS qUzW1GVuvE082NtNdyGZmDq lrU61yA8PdcKN+UZEyKdy1X CBzdHls KP1ikZMpNZyhZw2sRBL6XpG lZxSgHQoiK0AfSWXbezwtnn tuvGP3ZIEnZSOmoI81Ct5or DogMTBw tKGWhL2lpmwiz8kgmxerIpS lLNWcJQr2SQc2XXHwvXhfHy HsKIU5XhU6XVF8rBKkbG4xy Glnbjog lC0oK4XfPGRxljqvZz22hH8 dQqZjBcD9RFvzCmx+U1RSQV bRNYXEWELYZ9TCL5KdGXXNN YZ1O2Qn Ixi9HRIzoLbmHI6wlZOmGBq fTk3bxCtkgDntDN6ePOXllo pxEWGdiY0lTYZajBFghOkjP O9rBVWz lricl500BzQxXTO2FPEkgDR bG9FzlD9pFrQyHJOjJSDwC1 JheJLuJVmuU624JCjdVwH0S HZlcnRp J7SaAEBnyEcaYaA5i4R9Br5 uWF2vYN3hUUMdKA72ND11nH Mwy1R5vIS3Q6PfLMAhbfjjl mlnaHQ6 DYPuMPPnsZ12lGCiNUqbHh8 iv4V9h077ZUOmGOPvdH91Nh 5rfDylOGYduOPQzR6ylbhur 2xvcjog WaPfKIHeQYy0MRv2JFYseHt mQyOyBVA5YrP0XGB0wYSccW 9twVoqbhjbrJ8nXmg+NzQgW WVhcnM8 Z0KbBtd2BQZqdWioTJ0jkHZ gAPrcLg7gxYkacLttVL3tVW QsvckjZLAuhV3fYZZxaWHwf LjaVP0r PLIlunhol029HiYxOIR4TEF piHDmP3UimS4oMiMlEOGzOC XiG8AatIQnEQhrU316YSzsX oX6WIQz gsZgQ8PhEOQwbHsrVyZ3m0S 6Cf2GWK7YNDJ3L9MhShi8XQ PhpZunBY1hoHQnGMaeOi4wn WdodDog JB3rXMIpjmbuXQHiyM3wZWQ lyUIyvAntXK3uCIAdaxgrg9 41XeNqBHW3YAAgeJVaY8Uoe P3cXlCh UOPkXXTpT6TdxUUsIVlfP97 0FKkpTaL5LLDbuuSbF6EbUJ TwjMsoVhW8x3L8Tu3PonPcn GllbnQ8 V8PlVrvniSI+WE91UCOuDC2 5cQJelQTfq8tiwWl7XuFrPD GsISB5lRmtLAiej8GqVIAkZ 29sbGFw b6K6ZSAhoVzqnAQpDyLnbZG 0dK7hGExyyocpw2uljbrzIz axo3xmkc75mN06C47yOZkoV HRoPSIz GFHgDGJcsQxgxk1ryS4vRy0 +TGMsyXN5yMP4uI6gHcFyIl A7NEiiD977AoSqgADtEyhvl 0vrr1ub kPp7XuSsUHLpzsVbzYsnKNQ 1x6AwKt25O37jPMayVQCnVP PzGQPbGDZlvOadlc7ubD2vW i8+PC9j e8xonx80fE48pQZ+PHRkIHN 4iLtsFVlhRPFhlR5jHFmfUw W3KJClUiJzqA18qYMqSXemW u5ljNnk uKqpZH6aQSBrhprwe626LaX eb8cnCINdcMEcNTapRUU8X3 7lo9P0UGGgDYRoTMR2lGE2d V8xnRdg bjogbGVmdDsgdmVydGljYWw zFXmdW829SOFctUrmOwLnhN NfH1ssajSSJO3oZngkmDD+P HRkIHN0 xVqhYPsqWOAemA4dPEEiR1k 9RxYtHzV1SBppJ2PvcqX1UH ByfZKqGVJljRHKsF4okeomf 2xvcjog ExOiNOVuKLo8BLt7ZTEjtUl cZjSoZQT3ScR1RDE6gTAmiN 2fhEruzvhauC6wAdo+RklOO jwvdGQ+ TLGvEQS6fWzbRSpuROCitD6 jYYAkG7c7GpRyRiD8GOnnY7 JeefG3BTQgaEPeVQLqxLHQv O3vmqeg k4gpcqdcQsYeFZAgOJn3HZb 9PLPffDkoJnOhIQI9UwP9LU M6lZHruV5bzSkermbraV1cD yc+TVJO OjwvdGQ+AIOeEXR0eVynOPb vPTEzuW7zQBZyK8s7HrSuLu W3NJpqX2NtpoE9LGMaoXWwI TBwdCBU fA0cgncju4wedmweFtKpZPJ gYKd0ZIb1CTJybVlrHeAjRT T5HqH2KTB4lVKbbY1fyYxwr ngudS7t Oyc+VIT8QMH5OU42HX85X8O yPjwvdGFibGU+PHRhYmxlIH [id number] [id number] ZGV (more content not included)... [facility] Consultation/Specialist Note on 12-29-2023 Consultation/Specia list Note [id number]#1.00OT IFF [facility] Consent Formson 12-28-2023 Consent Forms [id number]#1.00OT IFF [facility] Consent Forms [id number]#1.00OT IFF [facility] Outside Recordson 08-06-2024 Outside Records [id number] [id number]#1.00OT [facility] Provider Orderson 12-28-2023 Provider Orders [id number]#1.00OT [facility] Provider Orders [id number]#1.00OT [facility] Provider Orders [id number]#1.00OT [facility] Telemetry Stripson Telemetry Strips [id number]#1.00OT [facility] Inpatient Patient Summaryon 12-27-2023 [place] [address] Patient Discharge Instructions Name: ASHLEE BANERJEE : 1950 Patient Address: [address] [place] [address] Primary Care Provider: Name: COOPER ELLER MD After you are discharged if you find you have any questions, please, call [phone] ext [phone] to speak to a nurse. The Pharmacy at [facility] is open Wednesday through Wednesday from 9A [...] alcohol and/or drug addiction problems; contact the [facility] 14/12 Crisis Hotline -Text 4HOPE in [phone]. If you received any narcotics, sedation, or [...] business decisions or sign any legal documents [facility] would like to thank you for allowing us to assist you with your healthcare needs. The following includes patient education materials and information regarding your injury/illness. ASHLEE BANERJEE KELLEY has been given the following list of follow-up instructions, prescriptions, and patient education materials: Follow-up Instructions With: Address: When: KEITH GABRIEL DO [address] [facility] [address] [place] [address] Within 1 to 2 weeks, only if needed With: Address: When: COOPER FRENCH Business (1) Comments: gave patient blue card to make follow up appt with pcp With: Address: When: Omar Tra [address] [place] [address], [facility] [address] [place] [address] Business (1) 01/06/2024 10:00 AM Medications During the course of your visit, your medication list was updated with the most current information. The details of those changes are reflected below: New Medications [id number], [address], [place] [id number], [phone] apixaban (Eliquis 2.5 mg oral tablet) 1 [...] an addit (more content not included)... Normal [facility] Nutrition Noteon 12-27-2023 Nutrition Note Per [...] nutritional supplements for higher protein/nutritional needs. Normal [facility] POCT Glucose Levelon 024 Glucose [Mass/Vol] 231 mg/dL High 74-118 [facility] Comment on above: Result Comment: OPR_ ID=IN_LIST,TGC FLAG = False,Meter:[id number] Enamel Pulverizer:[id number] Michelle Giavahna Performed By: #### 4 [id number] #### [facility] (DEFAULT) [address] [place] [address] 06859 Glucose [Mass/Vol] 116 mg/dL Normal [address] [place] [address] Comment on above: Result Comment: OPR_ ID=IN_LIST,TGC FLAG = False,Meter:[id number] Enamel Pulverizer:3518 Carney Giavahna Performed By: #### 4 [id number] #### [facility] (DEFAULT) [address] [place] [address] 10989 Pharmacy Noteon 12-27-2023 Pharmacy Note I have personally reviewed the patient's medication list upon discharge including, prescription medications, OTC products, vitamins and supplements. Below are the following medications the patient is discharged on. New Medications [id number], [address], [place] [id number], [phone] apixaban (Eliquis 2.5 mg oral tablet) 1 [...] hours.. not to exceed 12 capsules/day. Discharge [facility] Rec Notes: _ [Electronically Signed on: 12/27/2023 16:04 EDT] Omar Fischer PharmD [Verified on: 12/27/2023 16:04 EDT] Omar Fischer PharmD [facility] Progress Note - Nurseon Progress Note - Nurse Report called over to [facility] facility, spoke with Leonie regarding patient care here at [facility]. All questions and concerns were answered to satisfaction. Prior to leaving surgical site was cleansed after old dressing was removed, and a new dressing was applied. Patient tolerate well. Discharge instructions were given to patient and patient sister regarding medications, follow up appointment and restrictions. Both verbalized understanding. Patient sister will be transporting her to the [facility] and the facility was informed of this. All patient belongings were sent with the patient, clothing cell phones and chargers. Patient was discharge per wheelchair. [Electronically Signed on: 12/27/2023 16:15 EDT] Yarely Monique RN [Verified on: 12/27/2023 16:15 EDT] Yarely Monique RN [facility] US Echocardiogram Completeon 12-27-2023 US Echocardiogram [...] Junction2.19 cm F: 2.3 - 2.9 LV Lzje402.87 g LVOT Diameter 1.70 cm IVC1.22 (<= [...] Single Plane 4 CH 61.08 mLBiplane LA Edodhi51.90 mL Single Plane 2 CH39.17 mLLA ESV Index32.26 mL/m2 Right Atrium Area Systole RA Systolic Area A4C9.18 cm2RA Systolic Vol A4C19.10 mL Aortic Valve AoV Peak Velocity2.05 m/sLVOT Peak Velocity1.00 m/s AO Mean Velocity1.44 m/sLVOT Mean Velocity0.61 m/s AO Peak PG16.78 mmHgLVOT Peak PG4.00 mmHg AO Mean PG9.23 mmHgLVOT Mean PG1.82 mmHg AO V2 VTI39.28 cmLVOT V1 VTI20.40 cm ROBERT (Vmax)1.11 uy5WLIJ Area 2.28 cm2 ROBERT (VTI)1.18 cm2SV (LVOT) 46.46 mL Indexed ROBERT (VTI)0.72 cm2/m2 Mitral Valve MV Max Cshwoxxd703.34 m/sMV PHT57.68 ms MV E Max Velocity0.92 m/sMVA (PHT)3.81 cm2 MV A Max Velocity0.77 m/sMR OJT015.19 cm E/A Ratio1.2MR Peak Velocity5.04 m/s MV Decel. Iwtp582.91 ms TDI Med e' Velocity7.33 cm/sMV E / Medial e' 12.54 Lat e' Velocity7.58 cm/sMV E / Lateral e' 12.14 TV S'14.67 cm/s Pulmonary Valve PV Peak Velocity0.98 m/sPV Peak PG3.82 mmHg PV Mean PG2.23 mmHg Tricuspid Valve TR Peak Velocity3.08 m/sRAP Estimate3.00 mmHg TR Peak PG37.95 erGmABDJ21.95 mmHg Final Signed (Electronic Signature): Milton Pruitt MD 12/27/23 3:51 pm Technologist: JOAN [facility] .Auto Diff 12-26-2023 Auto [place] % 13 % High 06-04 [facility] Comment on above: Performed By: #### 7 [id number], [id number] #### [facility] (DEFAULT) [address] [place] [address] 46964 Baso Abs# 0.1 x10 Normal 0.0-0.2 [facility] Comment on above: Performed By: #### 7 [id number], [id number] #### [facility] (DEFAULT) [address] [place] [address] 95323 Basophils/100 WBC (Bld) 1.2 % Normal 0.2-2.0 [facility] Comment on above: Performed By: #### 7 [id number], [id number] #### [facility] (DEFAULT) [address] [place] [address] 11248 Eos Abs# 0.1 x10 Normal 0.0-0.4 [facility] Comment on above: Performed By: #### 7 [id number], [id number] #### [facility] (DEFAULT) [address] [place] [address] 14266 Eosinophils/100 WBC (Bld) 0.9 % Normal 0.9-4.0 [facility] Comment on above: Performed By: #### 7 [id number], [id number] #### [facility] (DEFAULT) [address] [place] [address] 41463 Lymph Abs# 1.3 x10 Normal 1.3-2.9 [facility] Comment on above: Performed By: #### 7 [id number], [id number] #### [facility] (DEFAULT) [address] [place] [address] 65540 Lymphocytes/100 WBC (Bld) 19 % Normal 14-48 [facility] Comment on above: Performed By: #### 7 [id number], [id number] #### [facility] (DEFAULT) [address] [place] [address] 90229 [place] Abs# 0.9 x10 High 0.0-0.8 [facility] Comment on above: Performed By: #### 7 [id number], [id number] #### [facility] (DEFAULT) [address] [place] [address] 26064 Neut Abs# 4.7 x10 Normal 1.5-9.2 [facility] Comment on above: Performed By: #### 7 [id number], [id number] #### [facility] (DEFAULT) [address] [place] [address] 38863 Neutrophils/100 WBC (Bld) 66 % Normal 44-88 [facility] Comment on above: Performed By: #### 7 [id number], [id number] #### [facility] (DEFAULT) [address] [place] [address] 46505 CBC w/ Auto Diffon 4 Erythrocyte distribution width (RBC) [Ratio] 14.4 % Normal 11.5-15.0 [facility] Comment on above: Performed By: #### 7 [id number], [id number] #### [facility] (DEFAULT) [address] [place] [address] 43973 Hematocrit (Bld) [Volume fraction] 25.9 % Low 33.7-40.4 [facility] Comment on above: Performed By: #### 7 [id number], [id number] #### [facility] (DEFAULT) [address] [place] [address] 73980 Hemoglobin (Bld) [Mass/Vol] 8.8 g/dL Low 11.3-15.9 [facility] Comment on above: Performed By: #### 7 [id number], [id number] #### [facility] (DEFAULT) [address] [place] [address] 65497 Man Diff? Auto Invalid Interpretation Code [facility] Comment on above: Performed By: #### 7 [id number], [id number] #### [facility] (DEFAULT) [address] [place] [address] 64688 MCH (RBC) [Entitic mass] 31 pg Normal 24-34 [facility] Comment on above: Performed By: #### 7 [id number], [id number] #### [facility] (DEFAULT) [address] [place] [address] 62716 MCHC (RBC) [Mass/Vol] 34 g/dL Normal 26-37 [facility] Comment on above: Performed By: #### 7 [id number], [id number] #### [facility] (DEFAULT) [address] [place] [address] 55476 MCV (RBC) [Entitic vol] 91 fL Normal 81-100 [facility] Comment on above: Performed By: #### 7 [id number], [id number] #### [facility] (DEFAULT) [address] [place] [address] 43148 Platelet 86 x10 Low 138-427 [facility] Comment on above: Performed By: #### 7 [id number], [id number] #### [facility] (DEFAULT) [address] [place] [address] 89430 Platelet mean volume (Bld) [Entitic vol] 9.3 fL Normal 6.3-10.2 [facility] Comment on above: Performed By: #### 7 [id number], [id number] #### [facility] (DEFAULT) [address] [place] [address] 40564 RBC 2.83 x10 Low 3.70-5.30 [facility] Comment on above: Performed By: #### 7 [id number], [id number] #### [facility] (DEFAULT) [address] [place] [address] 12698 WBC 7.0 x10 Normal 3.5-10.5 [facility] Comment on above: Performed By: #### 7 [id number], [id number] #### [facility] (DEFAULT) [address] [place] [address] 23623 CMP Standardon 12-26-2023 eGFR Non AA 54 mL/min/1.73m2 Invalid Interpretation Code [facility] Comment on above: Performed By: #### 4 [id number] #### [facility] (DEFAULT) [address] [place] [address] 62811 eGFR AA >60 Invalid Interpretation Code [facility] Comment on above: Performed By: #### 4 [id number] #### [facility] (DEFAULT) [address] [place] [address] 95224 Albumin [Mass/Vol] 2.5 g/dL Low 3.5-5.0 [facility] Comment on above: Performed By: #### 4 [id number] #### [facility] (DEFAULT) [address] [place] [address] 10167 Albumin/Globulin [Mass ratio] 0.9 {ratio} Low 1.4-2.6 [facility] Comment on above: Performed By: #### 4 [id number] #### [facility] (DEFAULT) [address] [place] [address] 48174 Alk Phos 73 IU/L Normal 32-91 [facility] Comment on above: Performed By: #### 4 [id number] #### [facility] (DEFAULT) [address] [place] [address] 31274 ALT [Catalytic activity/Vol] 26.0 U/L Normal 14.0-54.0 [facility] Comment on above: Performed By: #### 4 [id number] #### [facility] (DEFAULT) [address] [place] [address] 48941 AST [Catalytic activity/Vol] 31 U/L Normal 15-41 [facility] Comment on above: Performed By: #### 4 [id number] #### [facility] (DEFAULT) [address] [place] [address] 50283 Bili Total 0.7 mg/dL Normal 0.3-1.2 [facility] Comment on above: Performed By: #### 4 [id number] #### [facility] (DEFAULT) [address] [place] [address] 65138 Creatinine [Mass/Vol] 1.01 mg/dL Normal 0.60-1.30 [facility] Comment on above: Performed By: #### 4 [id number] #### [facility] (DEFAULT) [address] [place] [address] 83009 Globulin (S) [Mass/Vol] 2.7 g/dL Normal 1.5-4.3 [facility] Comment on above: Performed By: #### 4 [id number] #### [facility] (DEFAULT) [address] [place] [address] 64036 Osmolality 277 mOsm/L Invalid Interpretation Code [facility] Comment on above: Performed By: #### 4 [id number] #### [facility] (DEFAULT) [address] [place] [address] 65742 Protein [Mass/Vol] 5.2 g/dL Low 6.5-8.1 [facility] Comment on above: Performed By: #### 4 [id number] #### [facility] (DEFAULT) [address] [place] [address] 10818 Urea nitrogen [Mass/Vol] 27 mg/dL High 8-26 [facility] Comment on above: Performed By: #### 4 [id number] #### [facility] (DEFAULT) [address] [place] [address] 03497 Urea nitrogen/Creatinine [Mass ratio] 26.7 mg/mg High 4.6-16.2 [facility] Comment on above: Performed By: #### 4 [id number] #### [facility] (DEFAULT) [address] [place] [address] 34477 Anion gap [Moles/Vol] 8.2 mmol/L Normal 5.0-19.0 [facility] Comment on above: Performed By: #### 4 [id number] #### [facility] (DEFAULT) [address] [place] [address] 55831 Calcium [Mass/Vol] 8.2 mg/dL Low 8.9-10.3 [facility] Comment on above: Performed By: #### 4 [id number] #### [facility] (DEFAULT) [address] [place] [address] 35412 Chloride [Moles/Vol] 108 mmol/L Normal 101-111 [facility] Comment on above: Performed By: #### 4 [id number] #### [facility] (DEFAULT) [address] [place] [address] 02953 CO2 [Moles/Vol] 23 mmol/L Normal 21-32 [facility] Comment on above: Performed By: #### 4 [id number] #### [facility] (DEFAULT) [address] [place] [address] 17335 Glucose [Mass/Vol] 128.0 mg/dL High 74.0-118.0 [facility] Comment on above: Performed By: #### 4 [id number] #### [facility] (DEFAULT) [address] [place] [address] 16138 Potassium [Moles/Vol] 4.2 mmol/L Normal 3.6-5.1 [facility] Comment on above: Performed By: #### 4 [id number] #### [facility] (DEFAULT) [address] [place] [address] 25672 Sodium [Moles/Vol] 135.0 mmol/L Low 136.0-144.0 [facility] Comment on above: Performed By: #### 4 [id number] #### [facility] (DEFAULT) [address] [place] [address] 63246 CRPon 12-26-2023 CRP 13.5 mg/dL High <=0.5 [facility] Comment on above: Performed By: #### 4 [id number] #### [facility] (DEFAULT) [address] [place] [address] 81115 POCT Glucose Levelon 024 Glucose [Mass/Vol] 205 mg/dL High 74-118 [facility] Comment on above: Result Comment: OPR_ ID=IN_LIST,TGC FLAG = False,Meter:[id number] Enamel Pulverizer:Say Vasquez Performed By: #### 4 [id number] #### [facility] (DEFAULT) [address] [place] [address] 04089 Glucose [Mass/Vol] 146 mg/dL High 74-118 [facility] Comment on above: Result Comment: OPR_ ID=IN_LIST,TGC FLAG = False,Meter:[id number] Enamel Pulverizer:[id number] Kayden Pritchett Performed By: #### 4 [id number] #### [facility] (DEFAULT) [address] [place] [address] 86400 Glucose [Mass/Vol] 205 mg/dL High [address] [place] [address] Comment on above: Result Comment: OPR_ ID=IN_LIST,TGC FLAG = False,Meter:[id number] Enamel Pulverizer:[id number] Kayden Pritchett Performed By: #### 7 [id number], [id number] #### [facility] (DEFAULT) [address] [place] [address] 67909 Glucose [Mass/Vol] 129 mg/dL High [address] [place] [address] Comment on above: Result Comment: OPR_ ID=IN_LIST,TGC FLAG = False,Meter:[id number] Enamel Pulverizer:Christiano Driver Amanda Performed By: #### 4 [id number] #### [facility] (DEFAULT) [address] [place] [address] 54316 Progress Note - Nurseon - Progress Note - Nurse Dressing to left hip changed per order. Incision with sutures, intact and well approximated. No drainage or odor noted, incision pink in color. Dry, clean dressing applied, patient tolerate well. [Electronically Signed on: 12/26/2023 10:14 EDT] Yarely Monique RN [Verified on: 12/26/2023 10:14 EDT] Yarely Monique RN Normal [facility] TnI HSon 12-26-2023 Troponin I High Sensitivity 34.1 pg/mL Critically abnormal <=15.0 [facility] Comment on above: Result Comment: Dianne leo result TNIHS 34.1 pg/mL called to and read back by Alicia Ascencio at 26-Dec-2023 06:28 by Urban. Performed By: #### 4 [id number] #### [facility] (DEFAULT) [address] [place] [address] 75273 .Auto Diff 112-25-2023 Auto [place] % 13 % High 1-12 [facility] Comment on above: Performed By: #### 1 [id number], [id number] ####[facility] (DEFAULT)[address] [place] [address] Baso Abs# 0.1 x10 Normal 0.0-0.2 [facility] Comment on above: Performed By: #### 1 [id number], [id number] ####[facility] (DEFAULT)[address] [place] [address] Basophils/100 WBC (Bld) 0.6 % Normal 0.2-2.0 [facility] Comment on above: Performed By: #### 1 [id number], [id number] ####[facility] (DEFAULT)[address] [place] [address] Eos Abs# 0.0 x10 Normal 0.0-0.4 [facility] Comment on above: Performed By: #### 1 [id number], [id number] ####[facility] (DEFAULT)[address] [place] [address] Eosinophils/100 WBC (Bld) 0.5 % Low 0.9-4.0 [facility] Comment on above: Performed By: #### 1 [id number], [id number] ####[facility] (DEFAULT)[address] [place] [address] Lymph Abs# 1.2 x10 Low 1.3-2.9 [facility] Comment on above: Performed By: #### 1 [id number], [id number] ####[facility] (DEFAULT)[address] [place] [address] Lymphocytes/100 WBC (Bld) 14 % Normal 14-48 [facility] Comment on above: Performed By: #### 1 [id number], [id number] ####[facility] (DEFAULT)[address] [place] [address] 45862 [place] Abs# 1.1 x10 High 0.0-0.8 [facility] Comment on above: Performed By: #### 1 [id number], [id number] ####[facility] (DEFAULT)[address] [place] [address] Neut Abs# 6.2 x10 Normal 1.5-9.2 [facility] Comment on above: Performed By: #### 1 [id number], [id number] ####[facility] (DEFAULT)[address] [place] [address] Neutrophils/100 WBC (Bld) 72 % Normal 44-88 [facility] Comment on above: Performed By: #### 1 [id number], [id number] ####[facility] (DEFAULT)[address] [place] [address] CBC w/ Auto Diffon 4 Erythrocyte distribution width (RBC) [Ratio] 14.5 % Normal 11.5-15.0 [facility] Comment on above: Performed By: #### 1 [id number], [id number] #### [facility] (DEFAULT) [address] [place] [address] Hematocrit (Bld) [Volume fraction] 25.5 % Low 33.7-40.4 [facility] Comment on above: Performed By: #### 1 [id number], [id number] #### [facility] (DEFAULT) [address] [place] [address] Hemoglobin (Bld) [Mass/Vol] 8.8 g/dL Low 11.3-15.9 [facility] Comment on above: Performed By: #### 1 [id number], [id number] #### [facility] (DEFAULT) [address] [place] [address] Man Diff? Auto Invalid Interpretation Code [facility] Comment on above: Performed By: #### 1 [id number], [id number] #### [facility] (DEFAULT) [address] [place] [address] MCH (RBC) [Entitic mass] 31 pg Normal 24-34 [facility] Comment on above: Performed By: #### 1 [id number], [id number] #### [facility] (DEFAULT) [address] [place] [address] MCHC (RBC) [Mass/Vol] 34 g/dL Normal 26-37 [facility] Comment on above: Performed By: #### 1 [id number], [id number] #### [facility] (DEFAULT) [address] [place] [address] MCV (RBC) [Entitic vol] 90 fL Normal 81-100 [facility] Comment on above: Performed By: #### 1 [id number], [id number] #### [facility] (DEFAULT) [address] [place] [address] Platelet 94 x10 Low 138-427 [facility] Comment on above: Performed By: #### 1 [id number], [id number] #### [facility] (DEFAULT) [address] [place] [address] Platelet mean volume (Bld) [Entitic vol] 9.4 fL Normal 6.3-10.2 [facility] Comment on above: Performed By: #### 1 [id number], [id number] #### [facility] (DEFAULT) [address] [place] [address] RBC 2.83 x10 Low 3.70-5.30 [facility] Comment on above: Performed By: #### 1 [id number], [id number] #### [facility] (DEFAULT) [address] [place] [address] WBC 8.6 x10 Normal 3.5-10.5 [facility] Comment on above: Performed By: #### 1 [id number], [id number] #### [facility] [place] (DEFAULT) [address] [place] [address] CMP Standardon 12-25-2023 eGFR Non AA 40 mL/min/1.73m2 Invalid Interpretation Code [facility] Comment on above: Performed By: #### 7 [id number], [id number] #### [facility] [place] (DEFAULT) [address] [place] [address] eGFR AA 48 mL/min/1.73m2 Invalid Interpretation Code [facility] Comment on above: Performed By: #### 7 [id number], [id number] #### [facility] [place] (DEFAULT) [address] [place] [address] Albumin [Mass/Vol] 2.6 g/dL Low 3.5-5.0 [facility] Comment on above: Performed By: #### 7 [id number], [id number] #### [facility] [place] (DEFAULT) [address] [place] [address] 61355 Albumin/Globulin [Mass ratio] 1.0 {ratio} Low 1.4-2.6 [facility] Comment on above: Performed By: #### 7 [id number], [id number] #### [facility] [place] (DEFAULT) [address] [place] [address] 15866 Alk Phos 81 IU/L Normal 32-91 [facility] Comment on above: Performed By: #### 7 928231, [id number] #### [facility] [place] (DEFAULT) [address] [place] [address] 25956 ALT [Catalytic activity/Vol] 30.0 U/L Normal 14.0-54.0 [facility] Comment on above: Performed By: #### 7 [id number], [id number] #### [facility] [place] (DEFAULT) [address] [place] [address] 06162 Anion gap [Moles/Vol] 13.0 mmol/L Normal 5.0-19.0 [facility] Comment on above: Performed By: #### 7 [id number], [id number] #### [facility] [place] (DEFAULT) [address] [place] [address] 44293 AST [Catalytic activity/Vol] 38 U/L Normal 15-41 [facility] Comment on above: Performed By: #### 7 051457, [id number] #### [facility] [place] (DEFAULT) [address] [place] [address] 34393 Bili Total 0.6 mg/dL Normal 0.3-1.2 [facility] Comment on above: Performed By: #### 7 311208, [id number] #### [facility] [place] (DEFAULT) [address] [place] [address] 20101 Calcium [Mass/Vol] 8.4 mg/dL Low 8.9-10.3 [facility] Comment on above: Performed By: #### 7 [id number], [id number] #### [facility] [place] (DEFAULT) [address] [place] [address] 39973 Chloride [Moles/Vol] 104 mmol/L Normal 101-111 [facility] Comment on above: Performed By: #### 7 238669, [id number] #### [facility] [place] (DEFAULT) [address] [place] [address] 05638 CO2 [Moles/Vol] 20 mmol/L Low 21-32 [facility] Comment on above: Performed By: #### 7 [id number], [id number] #### [facility] [place] (DEFAULT) [address] [place] [address] 76580 Creatinine [Mass/Vol] 1.31 mg/dL High 0.60-1.30 [facility] Comment on above: Performed By: #### 7 063724, [id number] #### [facility] [place] (DEFAULT) [address] [place] [address] 42243 Globulin (S) [Mass/Vol] 2.6 g/dL Normal 1.5-4.3 [facility] Comment on above: Performed By: #### 7 498981, [id number] #### [facility] [place] (DEFAULT) [address] [place] [address] 15658 Glucose [Mass/Vol] 127.0 mg/dL High 74.0-118.0 [facility] Comment on above: Performed By: #### 7 [id number], [id number] #### [facility] [place] (DEFAULT) [address] [place] [address] 81113 Osmolality 277 mOsm/L Invalid Interpretation Code [facility] Comment on above: Performed By: #### 7 [id number], [id number] #### [facility] [place] (DEFAULT) [address] [place] [address] 86719 Potassium [Moles/Vol] 4.0 mmol/L Normal 3.6-5.1 [facility] Comment on above: Performed By: #### 7 013933, [id number] #### [facility] [place] (DEFAULT) [address] [place] [address] 26007 Protein [Mass/Vol] 5.2 g/dL Low 6.5-8.1 [facility] Comment on above: Performed By: #### 7 896367, [id number] #### [facility] [place] (DEFAULT) [address] [place] [address] 78256 Sodium [Moles/Vol] 133.0 mmol/L Low 136.0-144.0 [facility] Comment on above: Performed By: #### 7 056623, [id number] #### [facility] [place] (DEFAULT) [address] [place] [address] 41740 Urea nitrogen [Mass/Vol] 39 mg/dL High 01-16 [facility] Comment on above: Performed By: #### 7 [id number], [id number] #### [facility] [place] (DEFAULT) [address] [place] [address] 96445 Urea nitrogen/Creatinine [Mass ratio] 29.7 mg/mg High 4.6-16.2 [facility] Comment on above: Performed By: #### 7 214604, [id number] #### [facility] [place] (DEFAULT) [address] [place] [address] 54254 POCT Glucose Levelon 024 Glucose [Mass/Vol] 246 mg/dL High [address] [place] [address] Comment on above: Result Comment: OPR_ ID=[email or web address],TGC FLAG = False,Meter:[id number] Enamel Pulverizer:Say Vasquez Performed By: #### 4 [id number] #### [facility] [place] (DEFAULT) [address] [place] [address] 88184 Glucose [Mass/Vol] 149 mg/dL High [address] [place] [address] Comment on above: Result Comment: OPR_ ID=IN_LIST,TGC FLAG = False,Meter:[id number] Enamel Pulverizer:[id number] Kayden Yarely Performed By: #### 4 [id number] #### [facility] [place] (DEFAULT) [address] [place] [address] 23029 Glucose [Mass/Vol] 263 mg/dL High [address] [place] [address] Comment on above: Result Comment: OPR_ ID=IN_LIST,TGC FLAG = False,Meter:[id number] Enamel Pulverizer:[id number] Kayden Yarely Performed By: #### 4 [id number] #### [facility] [place] (DEFAULT) [address] [place] [address] 04422 Glucose [Mass/Vol] 109 mg/dL Normal 74-118 [facility] Comment on above: Result Comment: OPR_ ID=IN_LIST,TGC FLAG = False,Meter:[id number] Enamel Pulverizer:90Kwan Pritchett Performed By: #### 7 [id number], [id number] #### [facility] [place] (DEFAULT) [address] [place] [address] 29344 Performed By: #### 4 [id number] #### [facility] [place] (DEFAULT) [address] [place] [address] 22448 TnI HSon 12-25-2023 Troponin I High Sensitivity 35.3 pg/mL Critically abnormal <=15.0 [facility] Comment on above: Result Comment: Dianne ical result TNIHS 35.3 pg/mL called to and read back by Alicia ascencio at 25-Dec-2023 06:24 by Urban. Performed By: #### 7 [id number], [id number] #### [facility] [place] (DEFAULT) [address] [place] [address] UA w Culture if Ind Standard on 12-25-2023 Breakpoint UA Normal [facility] Comment on above: Performed By: #### 1 [id number] #### [facility] [place] (DEFAULT) [address] [place] [address] Color (U) Yellow [facility] Comment on above: Performed By: #### 1 [id number] #### [facility] [place] (DEFAULT) [address] [place] [address] Culture? Not Indicated Invalid Interpretation Code [facility] Comment on above: Result Comment: Resu lt created by rule [email or web address] Performed By: #### 1 [id number] #### [facility] [place] (DEFAULT) [address] [place] [address] 14764 Glucose (U) [Mass/Vol] Negative [facility] Comment on above: Performed By: #### 1 [id number] #### [facility] [place] (DEFAULT) [address] [place] [address] 27042 Ketones Ql (U) Negative [facility] Comment on above: Performed By: #### 1 [id number] #### [facility] [place] (DEFAULT) [address] [place] [address] 57005 Micro? Not Indicated Invalid Interpretation Code [facility] Comment on above: Result Comment: Resu lt created by rule GL_MAGR_ADD_UA_MICRO Performed By: #### 1 [id number] #### [facility] [place] (DEFAULT) [address] [place] [address] 79347 UA Bilirubin Negative Normal [facility] Comment on above: Performed By: #### 1 [id number] #### [facility] [place] (DEFAULT) [address] [place] [address] 13851 UA Blood Negative Normal NEGATIVE [facility] Comment on above: Performed By: #### 1 [id number] #### [facility] [place] (DEFAULT) [address] [place] [address] 46358 UA Clarity CLEAR Normal CLEAR [facility] Comment on above: Performed By: #### 1 [id number] #### [facility] [place] (DEFAULT) [address] [place] [address] 93330 UA Leuk Est Negative Normal NEGATIVE [facility] Comment on above: Performed By: #### 1 [id number] #### [facility] [place] (DEFAULT) [address] [place] [address] 85901 UA Nitrite Negative Normal NEGATIVE [facility] Comment on above: Performed By: #### 1 [id number] #### [facility] [place] (DEFAULT) [address] [place] [address] 41547 UA pH 6.0 Normal 5-8 [facility] Comment on above: Performed By: #### 1 [id number] #### [facility] [place] (DEFAULT) [address] [place] [address] 58705 UA Protein Negative Normal NEGATIVE [facility] Comment on above: Performed By: #### 1 [id number] #### [facility] [place] (DEFAULT) [address] [place] [address] 74061 UA Spec Grav 1.015 Normal 1.001-1.035 [facility] Comment on above: Performed By: #### 1 [id number] #### [facility] [place] (DEFAULT) [address] [place] [address] 14596 UA Urobilinogen 0.2 mg/dL Normal 0.2-1.0 [facility] Comment on above: Performed By: #### 1 [id number] #### [facility] [place] (DEFAULT) [address] [place] [address] Urine Source Clean Catch [facility] Comment on above: Performed By: #### 1 [id number] #### [facility] [place] (DEFAULT) [address] [place] [address] 58991 XR Chest 1 View Frontalon XR Chest [...] 12/25/23 8:40 am Technologist: [place] [facility] .Auto Diff 1on 12-24-2023 Auto [place] % 14 % High 1-12 [facility] Comment on above: Performed By: #### 7 [id number], [id number], [id number] ####[facility] [place] (DEFAULT)[address] [place], [place] [address] Baso Abs# 0.0 x10 Normal 0.0-0.2 [facility] Comment on above: Performed By: #### 7 834286, [id number], [id number] ####[facility] [place] (DEFAULT)[address] [place], [place] [address] Basophils/100 WBC (Bld) 1.0 % Normal 0.2-2.0 [facility] Comment on above: Performed By: #### 7 603830, [id number], [id number] ####[facility] [place] (DEFAULT)[address] [place] [address] 40743 Eos Abs# 0.0 x10 Normal 0.0-0.4 [facility] Comment on above: Performed By: #### 7 498482, [id number], [id number] ####[facility] [place] (DEFAULT)[address] [place] [address] 81537 Eosinophils/100 WBC (Bld) 1.0 % Normal 0.9-4.0 [facility] Comment on above: Performed By: #### 7 441493, [id number], [id number] ####[facility] [place] (DEFAULT)[address] [place] [address] 10579 Lymph Abs# 0.7 x10 Low 1.3-2.9 [facility] Comment on above: Performed By: #### 7 478653, [id number], [id number] ####[facility] [place] (DEFAULT)[address] [place] [address] 92175 Lymphocytes/100 WBC (Bld) 18 % Normal 14-48 [facility] Comment on above: Performed By: #### 7 098083, [id number], [id number] ####[facility] [place] (DEFAULT)[address] [place] [address] 13286 [place] Abs# 0.6 x10 Normal 0.0-0.8 [facility] Comment on above: Performed By: #### 7 375087, [id number], [id number] ####[facility] [place] (DEFAULT)[address] [place] [address] 07913 Neut Abs# 2.7 x10 Normal 1.5-9.2 [facility] Comment on above: Performed By: #### 7 930063, [id number], [id number] ####[facility] [place] (DEFAULT)[address] [place] [address] 17377 Neutrophils/100 WBC (Bld) 66 % Normal 44-88 [facility] Comment on above: Performed By: #### 7 201352, [id number], [id number] ####[facility] [place] (DEFAULT)[address] [place] [address] 49696 CBC w/ Auto Diffon Erythrocyte distribution width (RBC) [Ratio] 14.4 % Normal 11.5-15.0 [facility] Comment on above: Order Comment: I spo ke with Arabella Denis RN and asked if I would get the patient's blood work before 0600. Arabella had said that it was okay to do so. 12/24/2023 05:35:43 EDT Performed By: #### 7 732375, [id number], [id number] ####[facility] [place] (DEFAULT)[address] [place] [address] Hematocrit (Bld) [Volume fraction] 25.8 % Low 33.7-40.4 [facility] Comment on above: Order Comment: I spo ke with Arabella Denis RN and asked if I would get the patient's blood work before 0600. Arabella had said that it was okay to do so. 12/24/2023 05:35:43 EDT Performed By: #### 7 549065, [id number], [id number] ####[facility] [place] (DEFAULT)[address] [place] [address] Hemoglobin (Bld) [Mass/Vol] 8.6 g/dL Low 11.3-15.9 [facility] Comment on above: Order Comment: I spo ke with Arabella Denis RN and asked if I would get the patient's blood work before 0600. Arabella had said that it was okay to do so. 12/24/2023 05:35:43 EDT Performed By: #### 7 683892, [id number], [id number] ####[facility] [place] (DEFAULT)[address] [place] [address] 77946 Man Diff? Auto Invalid Interpretation Code [facility] Comment on above: Order Comment: I spo ke with Arabella Denis RN and asked if I would get the patient's blood work before 0600. Arabella had said that it was okay to do so. 12/24/2023 05:35:43 EDT Performed By: #### 7 639713, [id number], [id number] ####[facility] [place] (DEFAULT)[address] [place] [address] 08817 MCH (RBC) [Entitic mass] 30 pg Normal 24-34 [facility] Comment on above: Order Comment: I spo ke with Arabella Denis RN and asked if I would get the patient's blood work before 0600. Arabella had said that it was okay to do so. 12/24/2023 05:35:43 EDT Performed By: #### 7 793160, [id number], [id number] ####[facility] [place] (DEFAULT)[address] [place] [address] 68414 MCHC (RBC) [Mass/Vol] 33 g/dL Normal 26-37 [facility] Comment on above: Order Comment: I spo ke with Arabella Denis RN and asked if I would get the patient's blood work before 0600. Arabella had said that it was okay to do so. 12/24/2023 05:35:43 EDT Performed By: #### 7 [id number], [id number], [id number] ####[facility] [place] (DEFAULT)[address] [place] [address] 70302 MCV (RBC) [Entitic vol] 92 fL Normal 81-100 [facility] Comment on above: Order Comment: I spo ke with Arabella Denis RN and asked if I would get the patient's blood work before 0600. Arabella had said that it was okay to do so. 12/24/2023 05:35:43 EDT Performed By: #### 7 154878, [id number], [id number] ####[facility] [place] (DEFAULT)[address] [place] [address] 93861 Platelet 90 x10 Low 138-427 [facility] Comment on above: Order Comment: I spo ke with Arabella Denis RN and asked if I would get the patient's blood work before 0600. Arabella had said that it was okay to do so. 12/24/2023 05:35:43 EDT Performed By: #### 7 888077, [id number], [id number] ####[facility] [place] (DEFAULT)[address] [place] [address] 28949 Platelet mean volume (Bld) [Entitic vol] 9.9 fL Normal 6.3-10.2 [facility] Comment on above: Order Comment: I spo ke with Arabella Denis RN and asked if I would get the patient's blood work before 0600. Arabella had said that it was okay to do so. 12/24/2023 05:35:43 EDT Performed By: #### 7 [id number], [id number], [id number] ####[facility] [place] (DEFAULT)[address] [place] [address] RBC 2.80 x10 Low 3.70-5.30 [facility] Comment on above: Order Comment: I spo ke with Arabella Denis RN and asked if I would get the patient's blood work before 0600. Arabella had said that it was okay to do so. 12/24/2023 05:35:43 EDT Performed By: #### 7 996387, [id number], [id number] ####[facility] [place] (DEFAULT)[address] [place] [address] 85907 WBC 4.1 x10 Normal 3.5-10.5 [facility] Comment on above: Order Comment: I spo ke with Arabella Denis RN and asked if I would get the patient's blood work before 0600. Arabella had said that it was okay to do so. 12/24/2023 05:35:43 EDT Performed By: #### 7 [id number], [id number], [id number] ####[facility] [place] (DEFAULT)[address] [place] [address] 79682 Electrolyte Panel Standardon 12-24-2023 Anion gap [Moles/Vol] 10.2 mmol/L Normal 5.0-19.0 [facility] Comment on above: Order Comment: I spo ke with Arabella Denis RN and asked if I would get the patient's blood work before 0600. Arabella had said that it was okay to do so. 12/24/2023 05:35:43 EDT Performed By: #### 7 315183, [id number], [id number] ####[facility] [place] (DEFAULT)[address] [place] [address] 63712 Chloride [Moles/Vol] 107 mmol/L Normal 101-111 [facility] Comment on above: Order Comment: I spo ke with Arabella Denis RN and asked if I would get the patient's blood work before 0600. Arabella had said that it was okay to do so. 12/24/2023 05:35:43 EDT Performed By: #### 7 330703, [id number], [id number] ####[facility] [place] (DEFAULT)[address] [place] [address] 09970 CO2 [Moles/Vol] 21 mmol/L Normal 21-32 [facility] Comment on above: Order Comment: I spo ke with Arabella Denis RN and asked if I would get the patient's blood work before 0600. Arabella had said that it was okay to do so. 12/24/2023 05:35:43 EDT Performed By: #### 7 774838, [id number], [id number] ####[facility] [place] (DEFAULT)[address] [place] [address] 09756 Potassium [Moles/Vol] 4.2 mmol/L Normal 3.6-5.1 [facility] Comment on above: Order Comment: I spo ke with Arabella Denis RN and asked if I would get the patient's blood work before 0600. Arabella had said that it was okay to do so. 12/24/2023 05:35:43 EDT Performed By: #### 7 873653, [id number], [id number] ####[facility] [place] (DEFAULT)[address] [place] [address] 86487 Sodium [Moles/Vol] 134.0 mmol/L Low 136.0-144.0 [facility] Comment on above: Order Comment: I spo ke with Arabella Denis RN and asked if I would get the patient's blood work before 0600. Arabella had said that it was okay to do so. 12/24/2023 05:35:43 EDT Performed By: #### 7 034789, [id number], [id number] ####[facility] (DEFAULT)[address] [place] [address] MAGR Postoperative Recordon 12-24-2023 MAGR Postoperative Record MAGR Phase II Record Summary Primary Physician: KEITH GABRIEL DO Finalized Date/Time: 12/24/23 06:58:45 Pt. Name: ASHLEE BANERJEE /Sex: 1950 FEMALE Med Rec #: [id number] Physician: KEITH GABRIEL DO Financial #: [id number] Pt. Type: D Room/Bed: [facility] Admit/Disch: 12/23/23 05:40:58 - Institution: Phase II [...] By: Hailee Rosa RN 12/24/23 06:58 Normal [facility] Nutrition Noteon 12-24-2023 Nutrition Note Pt [...] nutrition risk. Will monitor intake, wts, labs. [facility] Pharmacy Noteon 12-24-2023 Pharmacy Note The [...] on: 12/24/2023 16:46 EDT] Kieran Alexandra PharmD [facility] Progress Note - Nurseon Progress Note - Nurse Dressing to left hip removed- scant amount of old drainage on dressing. Wound intact with stitches, well approximated. Minimal bruising and swelling noted. Redressed with optifoam. Patient tolerated well. [Electronically Signed on: 12/24/2023 13:58 EDT] Millicent Henry RN [Verified on: 12/24/2023 13:58 EDT] Millicent Henry RN [facility] Progress Note - Nurse Patient complains of pain in middle of chest since swallowing pills, vitals checked- B/P 117/57 pulse [address] Dr. Adame in room and aware of same/ EKG ordered [Electronically Signed on: 12/24/2023 11:41 EDT] Millicent Henry RN [Verified on: 12/24/2023 11:41 EDT] Millicent Henry RN [facility] Progress Note - Nurse Patient complaining [...] on: 12/24/2023 10:39 EDT] Millicent Henry RN [facility] Progress Note - Nurse Attempted to [...] 12/24/2023 02:55 EDT] Lena Persaud RN Normal [facility] TnI HSon 12-24-2023 Troponin I High Sensitivity 41.1 pg/mL Critically abnormal <=15.0 [facility] Comment on above: Result Comment: Crit ical result TNIHS 41.1 pg/mL called to and read back by Adam Lynch at 24-Dec-2023 19:55 by Urban. Performed By: #### 7 [id number], [id number] #### [facility] (DEFAULT) [address] [place] [address] Troponin I High Sensitivity 45.3 pg/mL Critically abnormal <=15.0 [facility] Comment on above: Result Comment: Crit ical result TNIHS 45.3 pg/mL called to and read back by Adam Lynch at 24-Dec-2023 14:45 by Urban. Performed By: #### 7 [id number], [id number] #### [facility] (DEFAULT) [address] [place] [address] .Auto Diff 112-23-2023 Auto [place] % 13 % High 1-12 [facility] Comment on above: Performed By: #### 1 [id number], [id number], [id number], [id number], [id number], [id number] ####[facility] (DEFAULT)[address] [place] [address] Baso Abs# 0.0 x10 Normal 0.0-0.2 [facility] Comment on above: Performed By: #### 1 [id number], [id number], [id number], [id number], [id number], [id number] ####[facility] (DEFAULT)[address] [place] [address] Basophils/100 WBC (Bld) 0.7 % Normal 0.2-2.0 [facility] Comment on above: Performed By: #### 1 [id number], [id number], [id number], [id number], [id number], [id number] ####[facility] [facility] [place] (DEFAULT)[address] [place] [address] Eos Abs# 0.1 x10 Normal 0.0-0.4 [facility] Comment on above: Performed By: #### 1 [id number], [id number], 58598138, 6385992, [id number], [id number] ####[facility] [place] (DEFAULT)[address] [place] [address]21 Eosinophils/100 WBC (Bld) 4.9 % High 0.9-4.0 [facility] Comment on above: Performed By: #### 1 [id number], [id number], 93825961, 7081749, [id number], [id number] ####[facility] [place] (DEFAULT)[address] [place] [address] Lymph Abs# 0.9 x10 Low 1.3-2.9 [facility] Comment on above: Performed By: #### 1 [id number], 29941810, 94615730, 3696632, [id number], 1590103 ####[facility] [place] (DEFAULT)[address] [place] [address]8685 Lymphocytes/100 WBC (Bld) 24 % Normal 14-48 [facility] Comment on above: Performed By: #### 1 [id number], 51390145, 71876223, 0800277, [id number], [id number] ####[facility] [place] (DEFAULT)[address] [place] [address] [place] Abs# 0.4 x10 Normal 0.0-0.8 [facility] Comment on above: Performed By: #### 1 [id number], 18453616, 80977284, 0557005, [id number], 5036676 ####[facility] [place] (DEFAULT)[address] [place] [address] Neut Abs# 2.2 x10 Normal 1.5-9.2 [facility] Comment on above: Performed By: #### 1 [id number], 42454417, 53242335, 4257232, [id number], 8292269 ####[facility] [place] (DEFAULT)[address] [place] [address] Neutrophils/100 WBC (Bld) 58 % Normal 44-88 [facility] Comment on above: Performed By: #### 1 [id number], 29068769, 37447402, 9867593, [id number], 3243116 ####[facility] [place] (DEFAULT)[address] [place] [address] ABORhon 12-23-2023 ABO and Rh group Nom (Bld) Hx Check: Not Found Anti-A: 4+ Anti-B: 0 Anti-D: 4+ DCon: NT A1: 0 B: 4+ ABORh Interp: A POS Invalid Interpretation Code [facility] Comment on above: Performed By: #### 1 [id number], [id number], 85650138, 1826273, [id number], [id number] ####[facility] [place] (DEFAULT)[address] [place] [address] ABORh Retypeon 12-23-2023 ABO and Rh group Nom (Bld) Ordered by Discern. Anti-A: 4+ Anti-B: 0 Anti-D: 4+ DCon: NT A1: 0 B: 4+ ABORh Retype: A POS Invalid Interpretation Code [facility] Comment on above: Performed By: #### 1 [id number], 14526179, 27435557, 7934704, [id number], [id number] ####[facility] [place] (DEFAULT)[address] [place] [address] ABSC Gelon 12-23-2023 ABSC Gel Negative Normal [facility] Comment on above: Performed By: #### 1 [id number], 32379503, 33020233, 3628963, [id number], 1537262 ####[facility] [place] (DEFAULT)[address] [place] [address] Anesthesia Noteon 12-23-2023 Anesthesia Note Patient: ASHLEE [...] br/min (DEC 22:00) SBP 124 mmHg (DEC 22:) DBP 63 mmHg (DEC 22:) General: Alert [...] on: 12/23/2023 11:11 EDT] George Beverly MD [facility] Anesthesia Note Patient: ASHLEE BANERJEE Age: [...] with myelopathy and radiculopathy / SNOMED CT 6385809791 / Confirmed Diabetes / SNOMED CT 241237681 / Confirmed Gallstones / SNOMED CT 763683281 / Confirmed History of colon polyps / SNOMED CT 1788156104 / Confirmed HTN (hypertension) / SNOMED CT 6163747393 / Confirmed Hypothyroidism / SNOMED CT 80165672 / Confirmed Hernia, incisional / SNOMED CT 702121728 / Confirmed Overactive bladder / SNOMED CT 4117156813 / Confirmed 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 Comments: 11/24/2023 14:39 ODILIAT - Swati Reddy RN pins placed to open spinal canal Hysterectomy (825389053). Arthroplasty of right knee (9650728575). Tonsillectomy and adenoidectomy (727918693). Excision of ganglion cyst of hand (8692506322). Arthroplasty of left knee (5715191273). Colonoscopy (308856635). Rotator cuff repair (132501901). Comments: 11/24/2023 14:57 ODILIAT Swati Phan RN Bilateral shoulders Repair of incisional hernia (524138880). Social History Electronic Cigarette/Vaping Assessment Electronic Cigarette [...] 22 06:15) Resp Rate 16 br/min (DEC 22 06:15) SBP 125 mmHg (DEC 22 06:15) DBP 72 mmHg (DEC 22 06:15) General: Alert and oriented, No acute distress. Airway: Mallampati classification: II (soft palate, fauces, uvula visible). Distance: Adequate. Mouth: Within normal limits, Adequate opening. Neck: Trachea ( Prior Cervical Fusion ), No full range of motion. Respiratory: Respirations are non-labored. Cardiovascular: Normal rate, Regular rhythm. Neurologic: Alert, Oriented. Review / Management Laboratory Results Plan [place] [employer]esthesiologists#(ASA) physical status classification: Class III. Anesthetic Preoperative Plan Anesthesia: General. , Regional Fascia Iliaca (SIFI) block (more content not included)... Normal [facility] Blood Bank IDon 12-23-2023 Blood Bank ID BBID: [id number] Invalid Interpretation Code [facility] Comment on above: Performed By: #### 1 [id number], 79498669, 38922472, 6967998, [id number], 4313063 ####[facility] [place] (DEFAULT)[address] [place] [address] CBC w/ Auto Diffon Erythrocyte distribution width (RBC) [Ratio] 14.6 % Normal 11.5-15.0 [facility] Comment on above: Performed By: #### 1 [id number], 40155145, 18024578, 3867550, [id number], 3572948 ####[facility] [place] (DEFAULT)[address] [place] [address] Hematocrit (Bld) [Volume fraction] 29.4 % Low 33.7-40.4 [facility] Comment on above: Performed By: #### 1 6954738, 82455473, 65342293, 9338563, [id number], 2307947 ####[facility] [place] (DEFAULT)[address] [place] [address] Hemoglobin (Bld) [Mass/Vol] 10.1 g/dL Low 11.3-15.9 [facility] Comment on above: Performed By: #### 1 2272892, 92784312, 76075276, 0403450, [id number], 0798530 ####[facility] [place] (DEFAULT)[address] [place] [address] Man Diff? Auto Invalid Interpretation Code [facility] Comment on above: Performed By: #### 1 [id number], 90903308, 82889265, 5496254, [id number], 1773121 ####[facility] [place] (DEFAULT)[address] [place] [address] MCH (RBC) [Entitic mass] 32 pg Normal 24-34 [facility] Comment on above: Performed By: #### 1 9356006, 42007365, 14296810, 0612151, [id number], 3168828 ####[facility] [place] (DEFAULT)[address] [place] [address] MCHC (RBC) [Mass/Vol] 34 g/dL Normal 26-37 [facility] Comment on above: Performed By: #### 1 5226771, 51652695, 98578788, 5503502, 4163621679, 4452040 ####[facility] [place] (DEFAULT)[address] [place] [address] MCV (RBC) [Entitic vol] 94 fL Normal 81-100 [facility] Comment on above: Performed By: #### 1 5106781, 92898045, 98913951, 6925557, 8925397425, 3091885 ####[facility] [place] (DEFAULT)[address] [place] [address] Platelet 86 x10 Low 138-427 [facility] Comment on above: Performed By: #### 1 4439155, 44042838, 78830640, 9692121, 3660716774, 4857753 ####[facility] [place] (DEFAULT)[address] [place] [address] Platelet mean volume (Bld) [Entitic vol] 8.8 fL Normal 6.3-10.2 [facility] Comment on above: Performed By: #### 1 2124622, 51783224, 75944582, 4664507, 2891710274, 1785265 ####[facility] [place] (DEFAULT)[address] [place] [address] RBC 3.14 x10 Low 3.70-5.30 [facility] Comment on above: Performed By: #### 1 6562971, 66546061, 41896109, 8895464, 8512370772, 0469736 ####[facility] [place] (DEFAULT)[address] [place] [address] WBC 3.8 x10 Normal 3.5-10.5 [facility] Comment on above: Performed By: #### 1 8703840, 49131437, 32115488, 2421159, [id number], 6114932 ####[facility] [place] (DEFAULT)[address] [place] [address] MAGR Intraoperative Recordon 12-23-2023 MAGR Intraoperative Record MAGR Intra-Op Record Summary Primary Physician: KEITH GABRIEL DO Finalized Date/Time: 12/23/23 11:24:45 Pt. Name: ASHLEE BANERJEE/Sex: 1950 FEMALE Med Rec #: [id number] Physician: KEITH GABRIEL DO Financial #: [id number] Pt. Type: D Room/Bed: / Admit/Disch: 12/23/23 [...] Role Performed Surgeon - Primary Anesthesiologist of Computer Repair Instructor Record Time In 12/23/23 08:03:00 12/23/23 07:54:00 12/23/23 07:54:00 Time Out 12/23/23 10:10:00 12/23/23 10:35:00 12/23/23 10:35:00 Procedure Arthroplasty Total Arthroplasty Total Arthroplasty Total Hip(Left) Hip(Left) Hip(Left) Last Modified By: Opal Orr RN, Diane RN Kokinda, Diane RN 12/23/23 10:41:40 12/23/23 10:41:40 12/23/23 10:41:40 Entry 4 Entry 5 Entry 6 Case Attendee Tasha Quintana CST De La Cruz FLOW WORKER, Tammy Wolff CST FLOW WORKER CSFA CSFA Role Performed Scrub Personnel Poultry Grader Poultry Grader Time In 12/23/23 07:54:00 12/23/23 07:54:00 12/23/23 07:54:00 Time Out 12/23/23 10:35:00 12/23/23 10:35:00 12/23/23 10:35:00 Procedure Arthroplasty Total Arthroplasty Total Arthroplasty Total Hip(Left) Hip(Left) Hip(Left) Last Modified By: Opal Orr RN, Diane RN Kokinda, Diane RN 12/23/23 10:41:40 12/23/23 10:41:40 12/23/23 10:42:20 General Comments: LAMBERTO BENITO-DEPUY REP Surgical Procedures MAGR Pre-Care Text: A.20 [...] Beverly MD, Opal Orr RN, Tasha Quintana FLOW WORKER, Jono FLOW WORKER, Deidre FLOW WORKER CSFA Last Modified By: Opal Orr RN [...] ankle O (more content not included)... [facility] PACU Record [facility] PACU Record Summary Primary Physician: KEITH GABRIEL DO Finalized Date/Time: 12/23/23 11:16:16 Pt. Name: ASHLEE BANERJEE/Sex: 1950 FEMALE Med Rec #: [id number] Physician: KEITH GABRIEL DO Financial #: [id number] Pt. Type: D Room/Bed: / Admit/Disch: 12/23/23 05:40:58 - Institution: PACU Case Times MAGR Entry 1 In PACU I 12/23/23 10:36:00 Discharge from PACU 12/23/23 11:07:00 I Last Modified By: Kenneth Self RN 12/23/23 11:16:12 Finalized By: Kenneth Self RN Document Signatures Signed By: Kenneth Self RN 12/23/23 11:16 [facility] MAGR Preoperative Recordon 0 12-23-2023 MAGR Preoperative Record MAGR Pre-Op Record Summary Primary Physician: KEITH GABRIEL DO Finalized Date/Time: 12/23/23 11:16:35 Pt. Name: ASHLEE BANERJEE /Sex: 1950 FEMALE Med Rec #: [id number] Physician: KEITH GABRIEL DO Financial #: [id number] Pt. Type: D Room/Bed: / Admit/Disch: 12/23/23 [...] consent correct. General Comments: Pt arrives to w in a WC, Pt denies cp, sob, cough or flu like symptoms. Pt denies pacemaker/defibillator or sleep apnea. Finalized By: Kenneth Self RN Document Signatures Signed By: Kenneth Self RN 12/23/23 11:16 [facility] POCT Glucose Levelon 08-01-2 024 Glucose [Mass/Vol] 110 mg/dL Normal 74-118 [facility] Comment on above: Result Comment: OPR_ ID=[email or web address],TGC FLAG = False,Meter:[id number] Enamel Pulverizer:Connor Storyika Performed By: #### 7 [id number], [id number] #### [facility] [place] (DEFAULT) [address] [place] [address] Glucose [Mass/Vol] 93 mg/dL Normal 74-118 [facility] Comment on above: Result Comment: OPR_ ID=IN_LIST,TGC FLAG = False,Meter:[id number] Enamel Pulverizer:Darlene7 Shannon Sidsel Performed By: #### 7 [id number], [id number] #### [facility] [place] (DEFAULT) [address] [place] [address] 25593 XR Hip Complete Lefton 12-22 XR Hip [...] DO 12/25/23 7:33 am Technologist: Aspen PHILLIP [facility] Coding Queryon 12-22-2023 Coding Query [id number] GTIFF [facility] Coding Summaryon 12-21-2023 Coding Summary HTMLBase 64 BltpulchHFt1hNe+PGhlYWQ +EO0GNHKtQ92sxZKplY3fL0 NMTElOSywgQVBQTElOSyIgb wJhMX3fzNJoNVNx IC8+UP6nJVXnZdrhcZZip4K 8fOC6P45ueh5lMIbotFJ8RD PmGnHzrhqvu6ftyQq7RUctV mluOyBt PCVglZ53MCD4fC28Na52iFS ywAQaj8mdoZx0XdKiTCKbKK J3vFmqMEwmk2ZsFSAzY29pk CCea4A8 XNIjuZcbhIWyVfPfaTI3pA7 mAUntcvzdv7jjunecOvh0rm 64nMPxo5T2eHI2H9KghuV2Z GJvbGQg KjwlrMXAyW0oskskz6ctnpk oRmQvSAJkQXl3NPp2YQBtyU tjVqJsEL78LXA3LQNtsmGbZ 2FsLWFs nKtbQiK1v8H1Mx0BG5EUEic nU7VPIOWGECmjzTK+PC90cj 22M4OiJuwnTxl3PTMfETZ3p WT8pE9s ZQJkRNkke1F3gLA7J0MgnmA cde5zu2tcOYWxVXfnS14sbI Igu1I5YBMpzNC8HJDscTzuP iBzaG93 Oyc+ZHIygCwby2YdTzqoi0c qp1xapCv6XsxwZLNtujHlyL iuGGT1q3OoXg4sPJUiuJN1k NT9wG1l DhTiWpK6PVuiS168HoNyeEC yGqqcW64dM2XnqOK+PHRyPj y8QQPjwMnhDC8xC4BqMNYhw mctbGVm rWrgZI0hDFBovlbgWXLeuD8 eZZMfR2m8WfAbJeC0WGheQ2 TkMIOosrzrJj12fF5gMcPmT sP4YPpr H8AdbmT9TAKvtWTkCBcdWQV 9D38ky3G8VMPzQSBsKAH0aE M3wW3anNggzstqrWTflGbgj mVydGlj EXmvBYztD991HRNteKbbVhI vZGluZyBEYXRlOiAgMDcvMz AvMjAyNDwvdGQ+IRChTUU6u WxlPSAn uSOiEEakQw0rlOugeFggDX6 lMNEcaiaePQNfzI2nDFCpeU WlcVxyZD5sGQTzrglmx231R iAxMHB0 LGFclEBkB2KshI8uWmHxXCN qRHTwI1FmeMJuFHlnI965GD gmOhP3NZHoesAeQ1MwPTBge WduOiB0 k7V3Rg3Ae2YlixywJ3SveNP fCuAfMotuVKy3V2FhAhzocX I+QQ29WIPoKD30KMw8JDJ6p WxlPSdi EWSxU8EnoW6fCyInPMLjDSE kOyc+PHRhYmxlIHdpZHRoPS itNUQrVnLiyFmaEF8xUl1fR GVyLWNv qEjiyGFbDnWlo8vcIKRkASh kZD5zsUhiZ2WjzLC3BREhy7 a1Mz59G47tM3ImnCQ+PGNvb OW1wUV7 uW3jNzMtSeH7MFrzX364StI xwXCkClygx5low5yynCp4Wj O2ACGqebTfxGsvMSC9l2OzD q89Y42m IHdpZHRoPSIxNSUiIHZhbGl adn5lqP7cMd6+GEIvvQX9vU E4oY1dEqOwKvU2RJjfH065K nRvcCIv Oxslp8uml0ovbLk0FyXdDGV jmgRglUfoMFJ1v1TkLx88U6 OdxBzeg5StUjl4xm46wKFdg 7S9wIA2 H3BdVPSbpkhdmGNveUfiTT4 mBXRgvsptUQZxiL2fYLWrT4 t4NmDfUnG9PQphE0MikpK7E GJvbGQg HDVazXIMnM2dbqwlx4bhycb nRqOcKJLdBLm8QLw0LRMmoB nrPgChQFR0DkK3RUI3xFCaa K4mnXxz pvtwhC8oKjc+DOT6vGZnaOY NWE3uVburvAD+CQYpQRS1zV voOQimIKWciO3gNXHwO3f7Q iAwLjA1 HNbwG1TxozW4FGWyhCLuLSA guVVJqT1wcxkkn3ihsrxvQp YwILPqINq4THl5EGFmqHfiR iBsZWZ0 CtG2BZC2rZSzfL2byLzqgul faA6fPig+CcnxoYtuKJN1UE p9Q0WfQqs1BESnjOsoFO0hx GFkZGlu Ql2ztOtmcZloBG8tUVXbetn rj058UeDye3moRFGqeRXvWM pbLDR2X11vz4W9ZFWzDKHtP QR2nHQ9 cR2roQzmlemogYOkdWatrtQ dnLsrEMxyIMwwO711DXXwzM daGrFxSQu8W6OrNko5QWLua XadRW5b cLQiWBkwAq7vxKeedGuoJZ9 oPVGfmuudz924DmYkr2xmPJ ZjeHOdACcmREJ7Y76if0G2Y CMwMDAw SYW1nKF2uY9hhPkoamvzwWJ mdDsgdmVydGljYWwtYWxpZ2 56RVYykTpkDxWyzRq5L2OrJ zx9SWNx rTpmRG3poJEwHGjrRb2zzVq rvOxnRU3zJBBljyuhv576Gy Rli6drXUGodAKzKFeeVNU6R 92ap1G3 TOXcEFUdGOS3zYS2oK4qvBo nbjogbGVmdDsgdmVydGljYW csAPytB942LKVjrWpwIvQia GllbnQg CBieCPl4J3SaClesiHP+PC9 4JGVwII20mJSinMDbt5befV k9AbStGKHjLSK5uSzvUNfby 3JkZXIt P85xhSEnv4Q2WTTfoWnaiMY sFrBjvQU1gY9nBCtruxmvk6 hlgbkbWljzt2hrsz82vZ34H 29sIHdp ZHRoPSIzMCUiIHZhbGlnbj0 rgC2hYk7+MHAvoMJ9cPE8gM 3tEEWeIiZ0UFlbA221YvGmw CIvPjxj g3hsf1swpZp0FxN0BJXmefS wbSllFSS1k2JoNy18J93tFQ dpZHRoPSIyMCUiIHZhbGlnb u6ndP1j Ii8+YKTeoIE5oLE6qQ5kRcO iCuS1TVggA177KfUfkLOwUk ozO96nH1IbdIY+CQSuJwp3E CBzdHls JV4elUDjFSeiBd0nTSO2IvR eLzDfHMwiZ9ScENTkyidfne vbcIJ7LBOuTSHheH52It9tb DogMTBw yWZZzJ0cajsgd0obhvwkTcQ tXUTwNRv7QCs0FWFtuRzaRv VnYWU5EbP3GQH6eGBdnO6pd Glnbjog kM0cZ2VwQDTabwqoDx31bE4 eQxDhBvS5PSjbRsr+U1RSQV aUFYSPGZICP1JTG5ZmIELVP VQ5R2Bq Akx3WVUtoEgmOP7ihOHxYLp aHc1mfYantRgrSV1oCQShpy coXALzpM7yCWYekGStyCglP T5uPDFn szjri207AcZrKHD9NOVkpEZ qT5UfsW5ySlKaXGHfHHFfM9 ReiTGmZEduW831XChvGxT0D HZlcnRp G2KhKKCpfFfkKtK5n5X7Oc9 lAD0qZB6jNKWbJB15TS05iZ Ahm8X3wWU7T5FnTUHdflpzq mlnaHQ6 NTQiXTMioR86mIYzTNjoQn4 ll1A0c003UHNgIQOphL80Xx 8hnFjvSARjcBXSdQ6nenzeo 2xvcjog HgQiWBOsLSm3OYc7PTRxpEf tVvBaXKM8CrL0RWD8kUDaoS 6xgEaaiusayK4sKnh+NzQgW WVhcnM8 P8ImZgw9XALybSvuEV7xvIC lDGccFx3gfCiovSrnCP9hTA ZwikptNUGchI9fYRRdmBRlv PzhPM2c YKJwdjuqk202PsTrOXS4MDR ewJXgQ8YikF0oXlDeLHRlGA ZlQ3BmfDJeDAikQ446SYbvD wC2WSAa mvSsZ4NxIDVecNbkPrF0w9E 7Ys1RBP2NWWD3L3OaIwe8EB EjsAxpPP8tpHYySGaaYj9ul WdodDog IB8cVJNwrdbrZVKtmR9aGED mnTElnYttOB6iVLTcabozw5 59MnEdQJT3FVEbxZMyV7Omi X4eQcYe VCUeYECtV3GwiRGiLTapJ03 4ZXgvKsP8SWWpyrBuZ8FeZF LgaTutHoF7r5N3Ie5CGGnpp GQ+PC90 hp55X2JjUidsUjg5CNCcCSB 3zQN4fL9yKHDhXRvyz7A0fF O1J0GjdbQdvd5fd5uyRANjC TubY01g uGRte1U0EUOhfBQ0PLNveSt mZzRhpF97Jnj+PGNvbGdyb3 SyJlxbt1hcb6vlnQg4PzEsH SIgdmFs aKdjGCA0m4OwVa68D46lUAf pZHRoPSIzMCUiIHZhbGlnbj 6czP2pHs8+VNVyiUA6bUG2i X9iQlBw KhS1OIsgS381ChYziBElIia hf8ldd2ueiBb3PwGpJYDcmz TbsMviBFC5v5LkJo83P8Ajg Bkax1Ix Wut3jo84zXEcd5L7dGJ0Z4M uDNWspmpwuMJffJbeVB4nAS MxkhckRSNgxR2bXEFwJ6i7U iAwLjA1 COhkB5TsvwO9QJSfbWGwPDW mjSVQhL4dstuei3rqtedlMg SxGKFqEUb9GWb8TOJgfBcuX iBsZWZ0 GjW6IAG4lEWlxO0isKlsagt zuY8fRqm+KPo8m8qcxQZmQT 0puBT3IP35EV62eNKkk2J2e KY6L9Qi LRJooermimywzOI3FDSqVVZ lsI35Ft2qoUlwZz0wYZEuMJ R7SOZpgOEmJ8QawK7oSgAfN DAwMDAw T0DtfNSjKZijO883AAodGkZ 0ELAbywFpI5GmSNCvpBijBw A9p4J8Bl8YGR22AB79UC82e IJaw8U1 oWU6S3QeNPVgvhmvqhgnwWW 0NTIgHJXhfV21Kh6xkLfeZs 0iSXCsQQS8YJDgtIGmR2Wkq F9nKnJh MLImMISvT3DxiCSeMFjlO23 6JIhwRuT8QUQrqlIqR2TjTO FjfIpfDsD7s1N0Xg9SFb81B L04QB22 hDTmt1J8aCQ3G5MlVCOxasp uaquvrNI0VSDoJJElrV86Tv 1umSpyMa7xBNCoGOO6SJPcv ACkO2La vS1fUaQpFGTbZYBkA2JpsWJ mDNohW978IJegGlP5CUVxqv AqW8NePPIulCktYnK7f7W4V y1QZHns qid6S2DiAhisdUM+RC13NTP zPZ25ePMmrOEdz7dglRq5Px NkBNCaNMS2uJhcKBxcd5JyB JJqY45w bGF (more content not included)... [facility] AFP TUMOR MARKERon AFP Tumor Marker <2.2 Normal <8.1 [facility] Comment on above: Result Comment: This test was performed on the [employer] IM Immunoassay platform by Siem[employer] which is a two-site sandwich chemiluminescent immunoassay. It is important to note that assays using different manufacturers and/or methods may not be comparable. Performed By: #### A FPTMR #### [facility] (DEFAULT) [address] [address] [place] 19-9on 11-29-2023 Cancer Ag 19-9 Qn 26.24 [arb'U]/mL NINF - 37.00 U/mL [facility] Comment on above: This test was perfor med on the Siemens [employer] IM Immunoassay platform which is a 2-step sandwich chemiluminescent immunoassay. It is important to note that assays using different manufacturers and/or methods may not be comparable. Interpretation and review of laboratory results Normal [facility] CA 19-9 26.24 U/mL Normal <=37.00 [facility] Comment on above: Result Comment: This test was performed on the Siemens Atell[employer] IM Immunoassay platform which is a 2-step sandwich chemiluminescent immunoassay. It is important to note that assays using different manufacturers and/or methods may not be comparable. Performed By: #### C A199 #### [facility] (DEFAULT) [address] [address] CBC,PLATELETSon 11-29-2023 Erythrocyte distribution width (RBC) [Ratio] 13.6 % 10.8 - 14.9 % [facility] Hematocrit (Bld) [Volume fraction] 34.2 % Low 34.9 - 44.3 % [facility] Hemoglobin (Bld) [Mass/Vol] 10.8 g/dL Low 11.4 - 15.2 g/dL [facility] Interpretation and review of laboratory results Abnormal [facility] MCH (RBC) [Entitic mass] 29.7 pg 25.9 - 33.9 pg [facility] MCHC (RBC) [Mass/Vol] 31.6 g/dL 31.4 - 35.9 g/dL [facility] MCV (RBC) [Entitic vol] 94.0 fL 79.6 - 97.7 fL [facility] Platelet mean volume (Bld) [Entitic vol] 12.0 fL 8.5 - 12.2 fL [facility] Comment on above: This is an appended report. These results have been appended to a previously preliminary verified report. Platelets (Bld) [#/Vol] 91 10*3/uL Low 150 - 393 K/uL [facility] Comment on above: This is an appended report. These results have been appended to a previously preliminary verified report. RBC (Bld) [#/Vol] 3.64 10*6/uL Low [facility] WBC (Bld) [#/Vol] 4.06 10*3/uL 3.99 - 11. 19 K/uL [facility] Hematocrit (Bld) [Volume fraction] 34.2 % Low 34.9-44.3 [facility] Comment on above: Performed By: #### [place] [facility] [place] #### [facility] (DEFAULT) [address] [address] Hemoglobin (Bld) [Mass/Vol] 10.8 g/dL Low 11.4-15.2 [facility] Comment on above: Performed By: #### H EMOGC #### [facility] (DEFAULT) [address] [address] MCV (RBC) [Entitic vol] 94.0 fL Normal 79.6-97.7 [facility] Comment on above: Performed By: #### H EMOGC #### [facility] (DEFAULT) [address] [address] Mean Cell Hgb 29.7 pg Normal 25.9-33.9 [facility] Comment on above: Performed By: #### H EMOGC #### [facility] (DEFAULT) [address] [address] Mean Cell Hgb Conc 31.6 g/dL Normal 31.4-35.9 [facility] Comment on above: Performed By: #### H EMO #### [facility] (DEFAULT) [address] [address] Platelet mean volume (Bld) [Entitic vol] 12.0 fL Normal 8.5-12.2 [facility] Comment on above: Result Comment: This is an appended report. These results have been appended to a previously preliminary verified report. Performed By: #### H EMO #### [facility] (DEFAULT) [address] [address] Platelets (Bld) [#/Vol] 91 10*3/uL Low 150-393 [facility] Comment on above: Result Comment: This is an appended report. These results have been appended to a previously preliminary verified report. Performed By: #### H EMOHEIDY #### [facility] (DEFAULT) [address] [address] RBC (Bld) [#/Vol] 3.64 10*6/uL Low 3.91-5.04 [facility] Comment on above: Performed By: #### H EMO #### [facility] (DEFAULT) [address] [address] RBC Distribution 13.6 % Normal 10.8-14.9 [facility] Comment on above: Performed By: #### H EMO #### [facility] (DEFAULT) [address] [address] WBC (Bld) [#/Vol] 4.06 10*3/uL Normal 3.99-11.19 [facility] Comment on above: Performed By: #### H EMOGC #### [facility] (DEFAULT) [address] [address] CHEM 6 (LYTES, BUN CREA)on 0 11-29-2023 Anion gap [Moles/Vol] 13 mmol/L 7 - 17 mmol/L [facility] Chloride [Moles/Vol] 107 mmol/L 98 - 108 mmol/L [facility] CO2 [Moles/Vol] 25 mmol/L 21 - 31 mmol/L [facility] Creatinine [Mass/Vol] 0.99 mg/dL 0.50 - 1.20 mg/dL [facility] eGFR, CKD-EPI, Female 60 - PINF [facility] Comment on above: Reported eGFR is bas ed on the CKD-EPI 2020 equation using creatinine, age, and sex. Potassium [Moles/Vol] 4.1 mmol/L 3.5 - 5.0 mmol/L [facility] Sodium [Moles/Vol] 141 mmol/L 135 - 145 mmol/L [facility] Urea nitrogen [Mass/Vol] 35 mg/dL High 7 - 25 mg/dL [facility] Urea nitrogen/Creatinine [Mass ratio] 35 mg/mg [facility] Anion gap [Moles/Vol] 13 mmol/L Normal 7-17 [facility] Comment on above: Performed By: #### H FP, CHM6 #### [facility] (DEFAULT) [address] [place] [address] Chloride [Moles/Vol] 107 mmol/L Normal 98-108 [facility] Comment on above: Performed By: #### H FP, CHM6 #### [facility] (DEFAULT) [address] [place] [address] CO2 [Moles/Vol] 25 mmol/L Normal 21-31 [facility] Comment on above: Performed By: #### H FP, CHM6 #### [facility] (DEFAULT) [address] [place] [address] Creatinine [Mass/Vol] 0.99 mg/dL Normal 0.50-1.20 [facility] Comment on above: Performed By: #### H FP, CHM6 #### [facility] (DEFAULT) [address] [place] [address] GFR/1.73 sq M.predicted among non-blacks MDRD (S/P/Bld) [Vol rate/Area] 60 mL/min/{1.73_m2} Normal >=60 [facility] Comment on above: Result Comment: Repo rted eGFR is based on the CKD-EPI 2020 equation using creatinine, age, and sex. Performed By: #### H DONNA, CHM6 #### U [facility] (DEFAULT) [address] [place] [address] 12515 Potassium [Moles/Vol] 4.1 mmol/L Normal 3.5-5.0 [facility] Comment on above: Performed By: #### H DONNA, CHM6 #### [facility] (DEFAULT) [address] [place] [address] 99330 Sodium [Moles/Vol] 141 mmol/L Normal 135-145 [facility] Comment on above: Performed By: #### H DONNA, CHM6 #### [facility] (DEFAULT) [address] [place] [address] 89332 Urea nitrogen [Mass/Vol] 35 mg/dL High 7-25 [facility] Comment on above: Performed By: #### H DONNA, CHM6 #### [facility] (DEFAULT) [address] [place] [address] 92029 Urea nitrogen/Creatinine [Mass ratio] 35 mg/mg Normal [facility] Comment on above: Performed By: #### H FP, CHM6 #### [facility] (DEFAULT) [address] [place] [address] 24749 HEPATIC FUNCTION PANELon Albumin [Mass/Vol] 4.0 g/dL 3.5 - 5.0 g/dL [facility] ALP [Catalytic activity/Vol] 118 U/L 32 - 126 U/L [facility] ALT [Catalytic activity/Vol] 34 U/L 9 - 48 U/L [facility] AST [Catalytic activity/Vol] 39 U/L 10 - 39 U/L [facility] Bilirubin [Mass/Vol] 0.5 mg/dL NINF - 1.5 mg/dL [facility] Bilirubin.direct [Mass/Vol] 0.2 mg/dL NINF - 0.3 mg/dL [facility] Protein [Mass/Vol] 6.3 g/dL Low 6.4 - 8.3 g/dL [facility] Albumin [Mass/Vol] 4.0 g/dL Normal 3.5-5.0 [facility] Comment on above: Performed By: #### H DONNA, CHM6 #### [facility] (DEFAULT) [address] [place] [address] 50615 ALP [Catalytic activity/Vol] 118 U/L Normal 32-126 [facility] Comment on above: Performed By: #### H DONNA, CHM6 #### [facility] (DEFAULT) [address] [place] [address] 22395 ALT [Catalytic activity/Vol] 34 U/L Normal 9-48 [facility] Comment on above: Performed By: #### H DONNA, CHM6 #### [facility] (DEFAULT) [address] [place] [address] 60606 AST [Catalytic activity/Vol] 39 U/L Normal 10-39 [facility] Comment on above: Performed By: #### H DONNA, CHM6 #### [facility] (DEFAULT) [address] [place] [address] 02431 Bilirubin [Mass/Vol] 0.5 mg/dL Normal <1.5 [facility] Comment on above: Performed By: #### H DONNA, CHM6 #### [facility] (DEFAULT) [address] [place] [address] 84061 Bilirubin.indirect [Mass/Vol] 0.2 mg/dL Normal <0.3 [facility] Comment on above: Performed By: #### H DONNA, CHM6 #### [facility] (DEFAULT) [address] [place] [address] 28431 Protein [Mass/Vol] 6.3 g/dL Low 6.4-8.3 [facility] Comment on above: Performed By: #### H , CHM6 #### [facility] (DEFAULT) [address] [place] [address] 81070 No Panel Informationon 11-28 Interpretation and review of laboratory results Abnormal [facility] PROTIME-INRon 11-29-2023 INR Coag (Bld) [Relative time] 1.3 {INR} High 0.9 - 1.1 [facility] Interpretation and review of laboratory results Abnormal [facility] PT Coag (PPP) [Time] 15.7 s High [facility] INR Coag (PPP) [Relative time] 1.3 {INR} High 0.9-1.1 [facility] Comment on above: Performed By: #### P TI #### [facility] (DEFAULT) [address] [place] [address] PT Coag (PPP) [Time] 15.7 s High 11.9-14.2 [facility] Comment on above: Performed By: #### P TI #### [facility] (DEFAULT) [address] [place] [address] C Urineon 11-26-2023 C Urine Urine Culture [...] S <=4 Verified Tri/Sulf S <=2/38 Verified Normal [facility] Comment on above: Performed By: #### 7 [id number], [id number] #### [facility] (DEFAULT) [address] [place] [address] Provider Orderson 11-26-2023 Provider Orders [id number] TGTIFF Normal [facility] .Auto Diff 1on 11-24-2023 Auto [place] % 8 % Normal 1-12 [facility] Comment on above: Performed By: #### 7 [id number], [id number] #### [facility] (DEFAULT) [address] [place] [address] Baso Abs# 0.0 x10 Normal 0.0-0.2 [facility] Comment on above: Performed By: #### 7 [id number], [id number] #### [facility] (DEFAULT) [address] [place] [address] Basophils/100 WBC (Bld) 0.8 % Normal 0.2-2.0 [facility] Comment on above: Performed By: #### 7 065694, [id number] #### [facility] (DEFAULT) [address] [place] [address] Eos Abs# 0.2 x10 Normal 0.0-0.4 [facility] Comment on above: Performed By: #### 7 [id number], [id number] #### [facility] (DEFAULT) [address] [place] [address] Eosinophils/100 WBC (Bld) 4.3 % High 0.9-4.0 [facility] Comment on above: Performed By: #### 7 [id number], [id number] #### [facility] (DEFAULT) [address] [place] [address] Lymph Abs# 0.7 x10 Low 1.3-2.9 [facility] Comment on above: Performed By: #### 7 [id number], [id number] #### [facility] (DEFAULT) [address] [place] [address] Lymphocytes/100 WBC (Bld) 19 % Normal 14-48 [facility] Comment on above: Performed By: #### 7 [id number], [id number] #### [facility] (DEFAULT) [address] [place] [address] [place] Abs# 0.3 x10 Normal 0.0-0.8 [facility] Comment on above: Performed By: #### 7 [id number], [id number] #### [facility] (DEFAULT) [address] [place] [address] Neut Abs# 2.4 x10 Normal 1.5-9.2 [facility] Comment on above: Performed By: #### 7 [id number], [id number] #### [facility] (DEFAULT) [address] [place] [address] Neutrophils/100 WBC (Bld) 68 % Normal 44-88 [facility] Comment on above: Performed By: #### 7 [id number], [id number] #### [facility] (DEFAULT) [address] [place] [address] BMP Standardon 11-24-2023 eGFR Non AA 41 mL/min/1.73m2 Invalid Interpretation Code [facility] Comment on above: Performed By: #### 7 [id number], [id number] #### [facility] (DEFAULT) [address] [place] [address] 89356 eGFR AA 49 mL/min/1.73m2 Invalid Interpretation Code [facility] Comment on above: Performed By: #### 7 428705, [id number] #### [facility] (DEFAULT) [address] [place] [address] 09667 Calcium [Mass/Vol] 9.0 mg/dL Normal 8.9-10.3 [facility] Comment on above: Performed By: #### 7 691687, [id number] #### [facility] (DEFAULT) [address] [place] [address] 54331 Chloride [Moles/Vol] 108 mmol/L Normal 101-111 [facility] Comment on above: Performed By: #### 7 300364, [id number] #### [facility] (DEFAULT) [address] [place] [address] 31130 CO2 [Moles/Vol] 24 mmol/L Normal 21-32 [facility] Comment on above: Performed By: #### 7 785236, [id number] #### [facility] (DEFAULT) [address] [place] [address] 13883 Creatinine [Mass/Vol] 1.28 mg/dL Normal 0.60-1.30 [facility] Comment on above: Performed By: #### 7 960386, [id number] #### [facility] (DEFAULT) [address] [place] [address] 02491 Glucose [Mass/Vol] 97.0 mg/dL Normal 74.0-118.0 [facility] Comment on above: Performed By: #### 7 906157, [id number] #### [facility] (DEFAULT) [address] [place] [address] 88490 Potassium [Moles/Vol] 4.1 mmol/L Normal 3.6-5.1 [facility] Comment on above: Performed By: #### 7 494423, [id number] #### [facility] (DEFAULT) [address] [place] [address] 71648 Sodium [Moles/Vol] 138.0 mmol/L Normal 136.0-144.0 [facility] Comment on above: Performed By: #### 7 654112, [id number] #### [facility] (DEFAULT) [address] [place] [address] 29771 Urea nitrogen [Mass/Vol] 43 mg/dL High 8-26 [facility] Comment on above: Performed By: #### 7 478735, [id number] #### [facility] (DEFAULT) [address] [place] [address] 61762 Anion gap [Moles/Vol] 10.1 mmol/L Normal 5.0-19.0 [facility] Comment on above: Performed By: #### 7 894294, [id number] #### [facility] (DEFAULT) [address] [place] [address] 95846 Osmolality 286 mOsm/L Invalid Interpretation Code [facility] Comment on above: Performed By: #### 7 303200, [id number] #### [facility] (DEFAULT) [address] [place] [address] 83258 Urea nitrogen/Creatinine [Mass ratio] 33.5 mg/mg High 4.6-16.2 [facility] Comment on above: Performed By: #### 7 905848, [id number] #### [facility] (DEFAULT) [address] [place] [address] 68543 CBC w/ Auto Diffon 4 Erythrocyte distribution width (RBC) [Ratio] 14.7 % Normal 11.5-15.0 [facility] Comment on above: Performed By: #### 7 816090, [id number] #### [facility] (DEFAULT) [address] [place] [address] 77589 Hematocrit (Bld) [Volume fraction] 33.3 % Low 33.7-40.4 [facility] Comment on above: Performed By: #### 7 467515, [id number] #### [facility] (DEFAULT) [address] [place] [address] 98811 Hemoglobin (Bld) [Mass/Vol] 11.1 g/dL Low 11.3-15.9 [facility] Comment on above: Performed By: #### 7 722561, [id number] #### [facility] (DEFAULT) [address] [place] [address] Man Diff? Auto Invalid Interpretation Code [facility] Comment on above: Performed By: #### 7 823972, [id number] #### [facility] (DEFAULT) [address] [place] [address] 59279 MCH (RBC) [Entitic mass] 31 pg Normal 24-34 [facility] Comment on above: Performed By: #### 7 826389, [id number] #### [facility] (DEFAULT) [address] [place] [address] 78807 MCHC (RBC) [Mass/Vol] 33 g/dL Normal 26-37 [facility] Comment on above: Performed By: #### 7 543379, [id number] #### [facility] (DEFAULT) [address] [place] [address] 19066 MCV (RBC) [Entitic vol] 92 fL Normal 81-100 [facility] Comment on above: Performed By: #### 7 [id number], [id number] #### [facility] (DEFAULT) [address] [place] [address] 58870 Platelet 101 x10 Low 138-427 [facility] Comment on above: Performed By: #### 7 849370, [id number] #### [facility] (DEFAULT) [address] [place] [address] 25232 Platelet mean volume (Bld) [Entitic vol] 9.4 fL Normal 6.3-10.2 [facility] Comment on above: Performed By: #### 7 [id number], [id number] #### [facility] (DEFAULT) [address] [place] [address] 75028 RBC 3.62 x10 Low 3.70-5.30 [facility] Comment on above: Performed By: #### 7 886816, [id number] #### [facility] (DEFAULT) [address] [place] [address] 03500 WBC 3.6 x10 Normal 3.5-10.5 [facility] Comment on above: Performed By: #### 7 285285, [id number] #### [facility] (DEFAULT) [address] [place] [address] 05185 HgbA1c Standardon 11-24-2023 .Hb 11.5 Invalid Interpretation Code [facility] Comment on above: Performed By: #### 1 [id number] ####[facility] (DEFAULT)[address] [place] [address] .Hgb A1c 0.53 g/dL Invalid Interpretation Code [facility] Comment on above: Performed By: #### 1 [id number] ####[facility] (DEFAULT)[address] [place] [address] Glucose [Mass/Vol] 134 mg/dL Invalid Interpretation Code [facility] Comment on above: Performed By: #### 1 [id number] ####[facility] (DEFAULT)[address] [place] [address] HbA1c (Bld) [Mass fraction] 6.3 % High 4.6-6.2 [facility] Comment on above: Performed By: #### 1 [id number] ####[facility] (DEFAULT)[address] [place] [address] 06694 UA Welie6kt 11-24-2023 UA Amorph. 1+ Normal [facility] Comment on above: Order Comment: Urina lysis Microscopic order added on by [employer] Rules system. Performed By: #### 7 [id number], [id number] #### [facility] (DEFAULT) [address] [place] [address] 92088 UA Bacteria 1+ Normal [facility] Comment on above: Order Comment: Urina lysis Microscopic order added on by [employer] Rules system. Performed By: #### 7 937315, [id number] #### [facility] (DEFAULT) [address] [place] [address] 61072 UA Hyal Cast 5-10 Normal [facility] Comment on above: Order Comment: Urina lysis Microscopic order added on by [employer] Rules system. Performed By: #### 7 342419, [id number] #### [facility] (DEFAULT) [address] [place] [address] 72405 UA Mucous 2+ Normal [facility] Comment on above: Order Comment: Urina lysis Microscopic order added on by [employer] Rules system. Performed By: #### 7 048059, [id number] #### [facility] (DEFAULT) [address] [place] [address] UA RBC 0-2 [facility] Comment on above: Order Comment: Urina lysis Microscopic order added on by [employer] Rules system. Performed By: #### 7 761801, [id number] #### [facility] (DEFAULT) [address] [place] [address] UA Squam Epi Few [facility] Comment on above: Order Comment: Urina lysis Microscopic order added on by [employer] Rules system. Performed By: #### 7 093341, [id number] #### [facility] (DEFAULT) [address] [place] [address] UA WBC 3-5 [facility] Comment on above: Order Comment: Urina lysis Microscopic order added on by [employer] Rules system. Performed By: #### 7 [id number], [id number] #### [facility] (DEFAULT) [address] [place] [address] UA w Culture if Ind Standard on 11-24-2023 Breakpoint UA [facility] Comment on above: Performed By: #### 7 [id number], [id number] #### [facility] (DEFAULT) [address] [place] [address] Color (U) Yellow [facility] Comment on above: Performed By: #### 7 054103, [id number] #### [facility] (DEFAULT) [address] [place] [address] Culture? Indicated Invalid Interpretation Code [facility] Comment on above: Result Comment: Resu lt created by rule GL_MAGR_ADD_UA_CULT Result created by rule GL_MAGR_ADD_UA_CULT Result created by rule GL_MAGR_ADD_UA_CULT Performed By: #### 7 [id number], [id number] #### [facility] (DEFAULT) [address] [place] [address] Glucose (U) [Mass/Vol] Negative [facility] Comment on above: Performed By: #### 7 813079, [id number] #### [facility] (DEFAULT) [address] [place] [address] 39420 Ketones Ql (U) TRACE Normal [facility] Comment on above: Performed By: #### 7 [id number], [id number] #### [facility] (DEFAULT) [address] [place] [address] 90835 Micro? Indicated Invalid Interpretation Code [facility] Comment on above: Result Comment: Resu lt created by rule GL_MAGR_ADD_UA_MICRO Performed By: #### 7 [id number], [id number] #### [facility] (DEFAULT) [address] [place] [address] 95563 UA Bilirubin Negative Normal [facility] Comment on above: Performed By: #### 7 366336, [id number] #### [facility] (DEFAULT) [address] [place] [address] 45351 UA Blood Negative Normal NEGATIVE [facility] Comment on above: Performed By: #### 7 [id number], [id number] #### [facility] (DEFAULT) [address] [place] [address] 37767 UA Clarity CLEAR Normal CLEAR [facility] Comment on above: Performed By: #### 7 [id number], [id number] #### [facility] (DEFAULT) [address] [place] [address] 91354 UA Leuk Est TRACE Abnormal NEGATIVE [facility] Comment on above: Performed By: #### 7 [id number], [id number] #### [facility] (DEFAULT) [address] [place] [address] 74255 UA Nitrite Negative Normal NEGATIVE [facility] Comment on above: Performed By: #### 7 207684, [id number] #### [facility] (DEFAULT) [address] [place] [address] 17852 UA pH 5.5 Normal 5-8 [facility] Comment on above: Performed By: #### 7 [id number], [id number] #### [facility] (DEFAULT) [address] [place] [address] 45440 UA Protein Negative Normal NEGATIVE [facility] Comment on above: Performed By: #### 7 [id number], [id number] #### [facility] (DEFAULT) [address] [place] [address] UA Spec Grav >=1.030 Normal 1.001-1.035 [facility] Comment on above: Performed By: #### 7 106531, [id number] #### [facility] (DEFAULT) [address] [place] [address] 18448 UA Urobilinogen 0.2 mg/dL Normal 0.2-1.0 [facility] Comment on above: Performed By: #### 7 [id number], [id number] #### [facility] (DEFAULT) [address] [place] [address] 82134 Urine Source Clean Catch Normal [facility] Comment on above: Performed By: #### 7 [id number], [id number] #### [facility] (DEFAULT) [address] [place] [address] 32936 XR Chest 1 View Frontalon XR Chest [...] Belgica Cordoba MD 11/27/23 8:59 am Technologist: [facility] XR Hip Complete Lefton 11-23 XR [...] Belgica Cordoba MD 11/27/23 9:01 am Technologist: [facility] Gastroenterology Office/Clin ic Noteon 10-19-2023 Gastroenterology Office/Clinic [...] Repeat in (more content not included)... Normal [facility] MRI Abdomen w/ + w/o Contras ton [...] cysts on the right. Final Dictated by: Avila FOSTER, Cooper Dictated DT/TM: 09/23/2023 4:26 pm Signed by: Cooper Gramajo MD Signed (Electronic Signature): 09/23/2023 4:49 pm Transcribed DT/TM: 09/23/2023 4:47 (If Report Is Signed, Electronically Signed in Other Vendor System) Normal [facility] Comment on above: Order Comment: medtronic bladder stim, please have pt bring card .eGFRon 09-22-2023 Estimated GFR 48 mL/min/1.73m? Low >=60 [facility] Comment on above: Order Comment: Order added by Discern Rule. Result Comment: [facility] have implemented [...] years Performed By: #### E GFR #### [address] [address] POC Creatinine Von 4 POC Crea iStat Venous 1.2 mg/dL Normal 0.6-1.3 [facility] Comment on above: Performed By: #### C [id number] #### [address] [address] XR C-SPINE FLEX/EXT ONLY 2 V IEWSon [...] No acute fracture. MACRO: None Normal [facility] XR Cervical spine Lateral Vi ews [...] Osteopenia. 5. No acute fracture. MACRO: None RADIOLOGY Rylie Min, DO - 09/17/2023 EXAMINATION: XR C-SPINE FLEX/EXT ONLY [...] Osteopenia. 5. No acute fracture. MACRO: None [facility] XR Cervical spine Lateral Vi ews W flexion and W extensionOrdered By: Rylie Min on 09-17-2023 [facility] Work Phone: XR Cervical spine Lateral Vi ews W flexion and W extensionon 09-16-2023 Radiology Study observation (narrative) [facility] Progress Noteson 09-15-2023 [employer] Authentication Interface Message Text DX: [id number] Posterior cervical laminoplasty, C4 to C7, with [employer] laminoplasty system. LV: 17jun2023 Ms Rubio returns [...] views of her cervical spine. Normal [facility] Progress Noteson 06-17-2023 [employer]sembler Authentication Interface Message Text Patient was identified by name and date of . Lisa Huff, [place] Patient at risk for falls:No Falls Risk protocol implemented: No Normal [facility] XR C-SPINE FLEX/EXT ONLY 2 V [...] most likely postsurgical. MACRO: None Normal [facility] XR Cervical spine Lateral Vi ews [...] are noted most likely postsurgical. MACRO: None [facility]narrative[facility] Lateral Vi ews W flexion and W extensionOrdered By: Edin Toney on 06-17-2023 [employer] Work Phone: Progress Noteson 06-16-2023 [employer] Authentication Interface Message Text DX: 31Mar2023 Posterior cervical laminoplasty, C4 to C7, with [employer] laminoplasty system. LAST VISIT: [id number] Ruddy SIMON [...] views of her cervical spine. Normal [facility] Telephone Encounteron 2022 [employer]er Authentication Interface Message Text RN called pt. [...] Pt asked how to send messages in [employer]. RN let her know to make sure she is logged into her ebindlet and to send messages to Dr Vergara and they will get to his RN. Pt agreeable. No further questions. Pt verbalized understanding. ----- Message from Judith Arpita sent at 05/04/2023 12:15 PM EST ----- Regarding: clarification Needs clarification on her neck exercises. Please call. Normal [facility] Progress Noteson 04-22-2023 [employer]er Authentication Interface Message Text Soft cervical collar dispensed to patient in clinic. Normal [facility] [employer] Authentication Interface Message Text Patient was identified by name and date of . Addie Fox RN Patient at risk for falls:Yes Falls Risk protocol implemented: Yes DX: 31Mar2023 Posterior cervical laminoplasty, C4 to C7, with [employer] laminoplasty system. LAST VISIT: [facility] Ms Rubio [...] views of the cervical spine. Normal [facility] Basic metabolic 2000 panelon 03-23-2023 Anion [...] presentation. Reference: 1. Bill C, Sharona M, Credoc DC, et al.. A Unifying Approach for GFR Estimation: Recommendations of the NKF-ASN Task Force on Reassessing the Inclusion of Race in Diagnosing Kidney Disease. [employer] of Kidney Diseases 202;79(2):268-88.e1. 2. N Engl J Med 1 Vol. 385 Issue 19 Pages 5937-7864 Glucose [Mass/Vol] 187 mg/dL High 80 - 116 mg/dL [facility] Interpretation and review of laboratory results Abnormal [facility] Potassium [Moles/Vol] 4.2 mmol/L 3.3 - 5.3 mmol/L [facility] Sodium [Moles/Vol] 140 mmol/L 135 - 148 mmol/L [facility] Urea nitrogen [Mass/Vol] 40 mg/dL High 8 - 22 mg/dL [facility] CT Cervical spine WO contras tOrdered By: Jed Neri on 03-23-2023 CT DLP 324.15 (mGy.cm) [facility] Work Phone: CT Series Topogram,Topogram,C SPINE WO [facility] Work Phone: CTDI VOL 0.07 (mGy),0.08 (mGy),15.96 (mGy) [facility] Work Phone: PHANTOM TYPE IEC Body Dosimetry Phantom,IEC Body Dosimetry Phantom,IEC Body Dosimetry Phantom [facility] Work Phone: [facility] Work Phone: CT Cervical spine WO contras [...] severe neural foraminal stenoses. MACRO: None RADIOLOGY Jed Neri MD - 03/23/2023 EXAMINATION: CT C-SPINE [...] and severe neural foraminal stenoses. MACRO: None [facility] Radiology Study observation (narrative) [facility] EKG 12 LEAD - PERFORMon 02-23 Diagnosis Normal sinus rhythm Nonspecific ST abnormality Abnormal ECG No previous ECGs available Confirmed by BREN AUSTIN ([id number]) on 03/23/2023 6:39:31 PM [facility] P wave Atrium by EKG 77 BPM [facility] P wave axis 73 degrees [facility] P-R Interval 126 ms [facility] Q-T interval 372 ms [facility] Q-T interval corrected 420 ms [facility] QRS axis 72 degrees [facility] QRS duration 80 ms [facility] T wave axis 59 degrees [facility] Laboratory - Blood bankon ABO and Rh group Nom (Bld) Blood group A Rh(D) positive [facility] ABO and Rh group Nom (Bld) No Previous Results [facility] Comment on above: Patient does not req uire a 2nd sample drawn prior to surgery date of 03/31/2023. Specimen meets Blood Bank's Pre-Surgical Protocol and is valid within 14 days from date of collection but will at midnight on the day of approved Surgery. Blood group antibody screen Ql Negative [facility] ABO and Rh group Nom (Bld) Blood group A Rh(D) positive [facility] Laboratory - Chemistry and C hemistry [...] [facility] PT Coag (PPP) [Time] 12.6 s [facility] Laboratory - Hematology and Cell countson 03-23-2023 [...] results Abnormal [facility] Consent for Treatmenton 062 Consent for Treatment [id number]#1.00 CD:127 Normal [facility] Consultation Noteon 11-11-19 Consultation Note Patient: ASHLEE BANERJEE Age: 72 years Sex: Female : 1950 Associated Diagnoses: None Author: Gerry Jerry MD Chief Complaint 11/10/2022 9:57 EDT Neck pain History of Present Illness 72-year-old female long history of low back and lower extremity pain. She was under the care of Dr. Tian at [place]. She recently saw Dr. Vergara who obtained [...] , Daily Nasacort Allergy 24HR , Daily Hanover-3 Fish Oil , Daily Probiotic 10 Ultra Strength Restasis ophthalmic 1 drop(s), BID traZODONE 50 mg Tab 50 mg = 1 tab(s), Oral, Once a day (at bedtime) valsartan 320 mg Tab 320 mg = 1 tab(s), Oral, Daily Vitamin D , Daily Zyrtec 10 mg, Daily Problem list: All Problems Diabetes / SNOMED CT 376285183 / Confirmed High blood cholesterol / SNOMED CT 08390524 / Confirmed HTN (hypertension) / SNOMED CT 4097043042 / Confirmed Hypothyroid / SNOMED CT 49329590 / Confirmed Overactive bladder / SNOMED CT 5726399797 / Confirmed Histories Past Medical History: No active or resolved past medical history items have been selected or recorded. Family History: No family history items have been selected or recorded. Procedure history: Electrical stimulation of bladder ([id number]) on 08/05/2021 at 70 Years. History of hysterectomy.. ([id number]). Comments: 05/19/2022 12:39 EST - Day Mala EDEN [address] [facility] [address] Cervantes History of right total knee replacement ([id number]). Comments: 05/19/2022 12:40 EST - Day Mala EDEN [address] [facility] [address] Gabriel Complete repair of rotator cuff ([id number]). Comments: 05/19/2022 12:41 EST - Day Mala EDEN [address] [facility] [address] Gabriel Complete repair of rotator cuff ([id number]). Comments: 05/19/2022 12:42 EST - Day Mala EDEN [address] [place] [address] Gabriel Social History Social & Psychosocial [...] for acute (more content not included)... Normal [facility] Comment on above: Result Comment: Elec tronically Signed By: Rosalino FOSTER, Gerry Abbott\.br\Date and Time Signed: 11/10/22 11:01 EDT HIPAA Forms Officeon 023 HIPAA Forms Office [id number]#1.00C D:127 Normal [facility] Legal Correspondence Officeo n 11-10-2022 Legal Correspondence Office [id number]#1.00C D:127 Normal [facility] Legal Correspondence Office [id number]#1.00C D:127 Normal [facility] Office/Clinic Note-Physician on 11-10-2022 Office/Clinic Note-Physician [id number]#1.00C D:127 Normal [facility] Patient Correspondenceon Patient Correspondence [id number]#1.00C D:127 Normal [facility] Patient Correspondence [id number]#1.00C D:127 Normal [facility] Patient Correspondence [id number]#1.00C D:127 Normal [facility] Patient Correspondence [id number]#1.00C D:127 Normal [facility] Patient Correspondence [id number]#1.00C D:127 Normal [facility] Patient History Officeon Patient History Office [id number]#1.00C D:127 Normal [facility] MRI Spine Cervical w/o Contr rosette [...] KENYA Technologist: GIANNA Technical Comments None Normal [facility] Consent for Treatmenton 05-2 Consent for Treatment [id number]#1.00C D:127 Normal [facility] RAD - MRI Screening Formon 0 10-16-2022 RAD - MRI Screening Form [id number]#1.00C D:127 Normal [facility] Physician Orderon 10-12-2022 Physician Order [id number]#1.00C D:127 Normal [facility] GLYCOHEMOGLOBIN A1Con 2022 ADA RECOMMENDATION SEE BELOW Normal [facility] Comment on above: Result Comment: ADA RECOMMENDED LIMIT 4.0 - 6.0 ADA THERAPEUTIC TARGET < 7.0 ACTION SUGGESTED > 7.0 Performed By: #### A 1C #### [facility] [address] [place] [address] Dr. Fernanda Sanon Glucose [Mass/Vol] 134 mg/dL Normal [facility] Comment on above: Performed By: #### A 1C #### [facility] [address] [place], [place] [address] Dr. Fernanda Sanon HbA1c (Bld) [Mass fraction] 6.3 % Critically high 4.5-6.2 [facility] Comment on above: Performed By: #### A 1C #### [facility] [address] [place] [id number] [address] Fernanda Sanon POINT OF CARE GLUCOSEon 06-24 Glucose [Mass/Vol] 138 mg/dL Critically high 74-106 T [facility] Comment on above: Performed By: #### P OCGLUC #### [facility] [address] [place] [address] [address] Fernanda Sanon Coding Summary.on 06-23-2022 Coding Summary. CD:[id number] Gh0 bWw+PGhlYWQ+UV7MVJVyI99 vdLFmhO9JO5eUKS5CVUEPDJ YAGZ0QNO7icRN4RUrfP1Ile iAv KzgwqMRqCB20CJh5KVQ1yXj iUOsofT7leBLlC4s7ZfMsJK 93yL04XBjeNWTgZrN9AfDhk jsgbWFy T1hkXsUteSPhCps+PHRhYmx lIHdpZHRoPScxMDAlJyBzdH wrIL4lEy6cCASsKEGjiAxio HNlOiBj y8zuKKDeODjqKD6nfEsfU7A vfKR4KKZtq8b7Er47vDA+PH AbWAG4dVcgRLsfc110LnNaw 3xlMLQ3 uQSzPOvdFDS8V29vj8S1XKW hBRCzXFZ3mBR0kG3okLfpks idE9SvpPGaRlI0WIE6vKRxw Y0hoNhg frxqsS7mVdx+D00JMI7GCBM YHW4MKjb9R4KmEvsshQJ+PC 06HNQoBM19oAPysBHpg2fjp Ci9WxLd AXMvHHP9gEmaOAwbr0FeTCH dF23zwFHbs5F0LHDfzGonpT FeEwItcQR6uS2zXSdzyyytk 2hvdzsn Beeqp7ycod18jX66P80iHNt nNQJdCMO6RSEmEEEuuTryfu 3mlV2mUu4+BWlhl9ebd5raj Yv5XxNh LKZnbhEydDbmZKM0w6TrHp5 7Z8RxuEowx6NnUye5jx13mQ Hxa7S8nRP8EAvgHTWspR3mM WxlZnQ6 ALCgSsJmkS46mAKbKPghFh5 jwSejqQoeAT9yIUVctwnaFQ NkkD4wTCLdyKPppQnsUV0jV TBpbjtm f336CdVeCTP7HUSmwRWyQ3B vlY5yNpRcFDXbGVTuW5AyrX OrWNrpT509XHqmOpP5UORbl hEzW2Dq FPRfyXanZcT5m2I1Yx8Yb3F qcqqkRLY3OJwsJYPkQsVvLc WnTqF2X0AgNoz8ANFliLuaG K1oJ6Mj JCXwgjfekxbgiMH1AVYjCEF wxP92aPRkSQvsKq3ix7W2f5 11HGXsNDRywG91Ff9auBybY TBwdCBU sN8vsbmwv2jlyvlkZxDbCAP hZLn4OBx7HZWwvNktOeBiED J2UqA5BLW4fRHfcY7cgLkqr rfqtI8m Oyc+N66hrX0nRWZ6BJK8djh tOJEuumXuVR52VP69U8WwMl wvdGFibGU+PGRpdiBzdHlsZ C8hZlWs y5ghh4CbXSshQ7EoBIOfJHl cMgc1WFAwYPG8lAI6tX4tZJ KnJKvly5T0xVE7D8NxwpZsb w5ho2su RUEpMHgtX11nfTQgn3N4IRT dkGJ0SGHpwAflQhKkhG17Fw c+UKDvbZqdx6XzPkpuf6cxt 3llwTn6 TyOqUVFtbfBlcAjtMTI1o6B cXs71U31jNWerKUXgRCVaUE ThYLHgiFqbyb6pgD1sHh1+P GNvbCB3 kBF1hJ7yRDHxVwP6UHvgY85 7IgObzTRaOxxib5hbm4pdpP s0CbGaKHLvlySrlKyfVWA7o 6BmPe27 T34jVGzxIUByBHQvHNBfZBS zcNzlud0yzL9hNy6+PC9jb2 oknb87oZ76gYF+RXEzMPB1b WxlPSdw HCOxsC3jSTjsTjV6APVyYsW zaA27pHLiGUfkOa0ypDmmjE ijDT3qRCIhtukvh687LnBaj 2xkIDEw yQDsTXewMWY4D27gp6R5CQT oPTNmDVP8dEX9cU9ctJwaoe ogbGVmdDsgdmVydGljYWwtY UmpN881 IHRvcDsnPlBhdGllbnQgTmF tGAk3T7PoHfd6JPSqgTdbFO 5zaSJtUOdsOx8yrMyjxEcvV P4hFACg ruwnn029WsOoc5dzZENtdZZ mALrgPWV7L22zp5I5ETLuIP ObELF4zLD5yU5ovIrqaxgss GVmdDsg hgJqlKhhOGtjJShtI994WHD myFlcXvEvwrJwTTGhxSV1YA 94ZS98fXRxk6B5lQW7R0VjP GRpbmct crszcJQ0NDWiFNTyxU61Lp6 yxCfsBq7aGUBaTQT8KQGmxT QxT4JlcP5xJgYbWRDdGMOqM 3RleHQt JRbdV949LJhmHcY3TKIrbyF eS7WqRDYlrFqqRuF4k8W0Zb 3CZ2U5HL26IG43oRIlg9K4h AN4G6Fo EMSkysxiumofvIK7LRIvCHY gtR24Dj7ddDdsIz4kHZGuCV K9RFNumAKmJ8BtlQ6iFnOuY DAwMDAw I3KaqKUhTEctH021LKmuVtQ 6MLAwsiViF7UuJCBzeDgwRs T6s3X3Em8JDVn5PA84CI99z WLmf0X1 iQS6H7LiNVHluqqvseavpOZ 5MCOoBKErxN56Cu6tuGreMh 1fIFHpPTY7LWTshXDuO9Tof P8tRnIp MVHdHZJeU6ZrpIRvTHhsK22 2PIihXgH5IPFvniZfD3PrRC CxzBnaVbO4f4F4Xp0GQBMpZ E02RRY9 mIS4DX31JC18T4GwSvqqqMD ibGU+PHRhYmxlIHdpZHRoPS iqUXYeOmEyyMfeLM4pNg6hV GVyLWNv cQhqhOEoBlEfx4atZDNtAVo aWD5tkTlbB4CfyYD6HTEbh5 p7Xh12L15nD5UkyYH+PGNvb JN8sSK7 jW0eStZlHrU2QHiuZ410CpB xzGFnWntrz8cpd6ttwXl6Lw P5IEDjnvHvnGldRZJ9h7KbX i46S55r IHdpZHRoPSIxNSUiIHZhbGl nrw4wxP9wNi2+LWIuyVR6tL M8uN5vEnKpTeV9IXpyK650N nRvcCIv Vuoxf7tza3sdpTg5PxIrGEM lmhAjvUazSFO6q3KaUp21S5 RwcKpll1LaByf2xx95mBRwo 5F7iYL0 T7MbPBPjrxnwlNSxrHqcAT0 yKCTfvzgxBGKcvO2xBVBjW8 o9HxIzIzV7IDrsS6MmliG0W DEwcHQg GWsjCZB8B07hc2Y5PMFgUFE qMBJ0zPA4sH0dbVbdsrnhwH VmdDsgdmVydGljYWwtYWxpZ 246IHRv qLvvHFPypO9lTWCwlOQkdGl nFZ4pTFQdzxuwIvUFYoWyTU GSQgqqDU8GYNFXTA88U0HnV xo9CWJj dWvhGE8zjZUzZHyzQv8gqIk mxLohBT1rFMVltkkgQSOghN 6qTBBauJSlvLarOS1zRKLby lepv367 KwJlFRG7TEGmwENaT2OjkE2 lOxOtCRCtYKVkR5QflSZeUA dhR073JNbaAcT3OHMvwxOuP 2FsLWFs gJisTuY6b1N4Lv2xNV2fVV8 uWZJtNT65MS22pKFae1Y0rN J7X3WmTGLcmqetpvgnsMT3K DAuMDUw aG73sMKzAHdkNf8cd4V3c98 2AWEoEVIfcJ11Li6otRjxYP NleTPMfD7yzkesj0qvbqtkG zAwMDAw AOd7SOk8HIVpjDusZyTmZNG 5InA6FJB3oENpxK3ooYleyj ajpZ5hZkx+FbVpLLAjzqN9H 7VxLwi5 TFIhoLvmPK8gjROsKRgaPv5 oqCphmHdxDH0iDISubnkdWT MihT6sFUQrnKFwbOzlJB0rB TBpbjtm s046GzQoKGO4IYPecBEhK3N qfN1iOmXdARTyAJHyD3GlfB WoQQpvH595ZYgjJpW1MJRuz hNoS8Xd IWKcjMmcFmG8q0L6Pv8PJG0 bfRY5D7NhSlz9MQSrbTccQH 8dvKExLIciEf7twOscxJywV H5oXCHr tgssFRVpgF0xWBCelSZkeJz mPI1rTHIlaavjl551NzHsGS M8VFJpwJHtS5XwgU2fKiYkX DAwMDAw C9UolQRsGFoqN488AAyxAuV 2FZKtcdCzR6HhDPUjyPksMd P1m3Q2Xu9PiLJxSFHpKR94Z Y12UA54 D2FpChamjECnbMX+PHRhYmx lIHdpZHRoPScxMDAlJyBzdH kdML6lOk9rLUApWGLcwWzde HNlOiBj d5hdYBDdJCgvKJ7jhBvhP8K drMQ2MRJcb8v1Wb65O65kC6 JvdXA+NOCscXY7nEA4bJ1kZ zAlIiB2 HZzyH708McOyjQIlIudoj0u jp9bgyNz5ExXzDKDhwvKniP wcCOS6d7ZiKn78S95tHZpkL HRoPSIy FZPnYIHfoNdjfz7udL2fIn2 +QOVzoIS2tEU0cI0fTaOeXq C0EOtfB500NmUjoZQpLyfaB 60kV6Wh dXA+SUDxMnm0THQwjMakPM8 dtYBhIGoqIx8jDET0GdPoKq JpNZivP6QwGTVnlpcqudoln LS0BZQr SBAogJ34Bm0pzNkyBq9tQQV wLGT7VMYxiQYxR8MweX2dJl KlJGSqGOIzG6DwrCZyEMulV 246IGxl AzP8IEWqfqMrD8UoSHOkbNa vIlW6e5V4Iy0NuWdqaAEnAO 8kZfLlEZw6Z9NxGtj0UICsa QmxSL7q aQIlKHrvLe1ynGgdzHtaYW2 mTMGhwsrae423JtMtv4riYP YmpQHuCWtoMVW7T69tl0O2N CMwMDAw SFS1hCC3nX6mzVqtpagyfKI mdDsgdmVydGljYWwtYWxpZ2 48OHVsuPpkFzFUGzn6M0NbJ pt5JQBh sBytST4jrRRnDRnuLc6quEb uoQzvHP5yFDRmjewgn598Wf Gcz4fmEZKdeBVgUGifNVW8F 37ra1F7 XPHxSHAqSBK3vJP0vI8lrAh nbjogbGVmdDsgdmVydGljYW vvKVtdB516VVPtyNuzHa6OH ct1L9Dq Shy6SGOusRvyHP7duBHcHGe eXm2jbYbjuZpgIF4yFCVcni qcj665JiKes9aqAOWsvPKxS GltZXM7 Q74ot0Z2NBBdLQDcGZD7iMM 1yB1ehNgwshvzqDKnaFftjs AzlRlhCVtkWSwoB130BCNko DsnPlBh eWVyOjwvdGQ+GA23rp60U7V qInfkWgq5XVItJFJ9wPD9bL 0rASGgNSnnl1C2hTZ2H7Yfi eXyto1n b2xs (more content not included)... Normal [facility] Consent for Treatmenton 05-25 Consent for Treatment [id number]#1.00 CD:127 Normal [facility] Consultation Noteon 06-16-19 23 Consultation Note Patient: ASHLEE BANERJEE Age: 71 [...] 0 Nasacort Allergy 24HR: Daily, Refill(s) 0 Hanover-3 Fish Oil: Daily, Refills(s) 0 Vitamin D: [...] All Problems Overactive bladder / SNOMED CT 6796596331 / Confirmed Diabetes / SNOMED CT 206873769 / Confirmed HTN (hypertension) / SNOMED CT 0005639898 / Confirmed Hypothyroid / [facility] 89845317 / Confirmed High blood cholesterol / [facility]835[facility] / Confirmed Objective Vital Signs 06/16/2022 13:42 [...] hip flexion 5 -/5 Integumentary: Warm, Dry, Comunas. Neurologic: Alert, Oriented. Psychiatric: Cooperative, Appropriate mood [...] foraminal padilla (more content not included)... Normal [facility] Comment on above: Result Comment: Elec tronically Signed By: Janie Henning PA-C\.br\Date and Time Signed: 06/16/22 14:02 EST\.br\Electronically Co-Signed By: Geri Vergara MD\.br\Date and Time Co-Signed: 06/21/22 21:27 EST Office/Clinic Note-Physician on 06-16-2022 Office/Clinic Note-Physician [id number]#1.00C D:127 [facility] Coding Summary.on 06-15-2022 Coding Summary. CD:[id number] Gh0 bWw+PGhlYWQ+DH6XOQTbT13 kfELbeL9AX3gZRM3DZQZFFR AHBK4MAV0djCI6SBuhX8Nod iAv JlruzVSkMR54CQo0CJH8eMy hSMboaZ1vfEHoG0a4OoHmKH 11vI91BZapEDNxUxJ4RnOlq jsgbWFy A4baAvXdlQAnDhi+PHRhYmx lIHdpZHRoPScxMDAlJyBzdH frPC6jTz6yCDCaLHYwaZagt HNlOiBj r3liSBGcWTibNY2eqJsnO0M qdKR1NYQqv2m3Vh76vNB+PH MhCMU1yJevTUhve669WjLjj 6kdMWN3 uCNlOOjdBBE2D10al7W2VSS gHVMnBJH1tDG8jV7ihPinqj eiV9UkyLWuVdK4EIJ9pICvn V1jmZko drgdxZ6hJxg+D79LIA3LQTW VYF1PBrt7H6ZzRxhlmSB+PC 48HHZcGL84yYAfyUKyv3sdd Su3XwCv HQHnONH9mUqgJKugt0EmMHA uN79glKXog1Z7TTUplWkgeW KxOeDhnOP2jJ8yTAduohqzs 2hvdzsn Zylkr8pvki77uM80N12rJOa oXJTsBGQ2NJMcHQFogPghhj 3glD4eGu5+RRaaf4szr7zgs Kv9SyAg TPDydkQlfJghXTS6a5IoHz4 3B2WvkTyly2RbNbx3mn15iI Qjh6E0uPV5VEhhZXYasO7hV WxlZnQ6 HPXsOuHnmF94aCOpOKrgUj9 skXylyWdrUM9rCRNoxoidNV FiwP1kHPVwnAOqyKadRW0kP TBpbjtm l537LtLpBTB6EMJebAJcV6E lvH1eGqTmJYTtHBKpO2OkyE KjPIsxU432YMzhKmU9HIHcl kPzO2Va VSYasZcpCjX4j0R4Ge3Nr5U yumzsAKG4VEahWJEgVfOlRa UuMuC4P2QkTor2UGBatFtdK G5sU0Kf CSCyqsxljibydIL7VFXcSHM nrU58hWWgFCkmTf9jj7P5f3 79WBKgQWVoaC27Pl5hvWexB TBwdCBU aX8zlfgbx2iawujrQoUpQYX uEAt9LBu6IGQotIviKnBsCK R1IwI9UBT3gRMmvP5frCuji hcumC7h Oyc+T27wmX4zJQP0SBV2pja bTZVjwtVgIK96VF08Y8NmKs wvdGFibGU+PGRpdiBzdHlsZ I1cFaVd a1hqc5GrPJisF1AnLLDuZIl uYtq8HFLwKCF3sFF4uD8zLH MaJPqub9G8zJY0U5AwxdJim r9bh0zh ASTlEXgvA29tyVUpf7L8PYS rfND8QIFbqGnhAoJvyS87Ga c+WXVpjArdy9CnYldej1tyy 6gsuZn5 HgAuSXBdfiOviEdtWFV7l1Z nJn90Z91iEPntBSQhQBTnGM WcAKCrkJpzjl1yoI0kJd5+P GNvbCB3 cOH8xH1cXNIdRjX8MSkyJ20 6VgZrlURzIfmts0qes0gtpA n7RmSmHTWdyzKaaDtuSYD4g 1VcSx31 V49fRFawZXDwSRGiQOQwFLZ vbSnsce0cpB6wHh8+PC9jb2 kpyt49dQ80sUJ+WYPmFSI8b WxlPSdw QLElbJ7vKQwrNjX8UASnIzE hfZ79aPOwOLieMv4ymGottM ntAW1hKHFtvwywf495BjUwp 2xkIDEw mIPwCGkkIYQ4V06qh5S0BJS cUOLcRML0kIB0hM2zeElbrt ogbGVmdDsgdmVydGljYWwtY AnpX995 IHRvcDsnPlBhdGllbnQgTmF gTMz8H8UuNlm9NPNsuNqePY 1jzLJpHZklTb6jeHkogBviG S5jPLIt appfj895KbEjr6dnJMBfoJB tOMolNZQ2O82wg7L6GMGtIG DzYPK9lCW1aV2kpRyrnmocy GVmdDsg leTvzGggZCabCJusT844VLJ hfBtnWpUqkqEcPKZuoXF6NN 23HF11lZYyi6S3mAN4E2QqN GRpbmct ggnquHT3RTLyQDScfE47Vd2 uuSfsIu3oXPNfCOM4INAfkF SbL4YjvJ8jByRcPCGcVSSgO 3RleHQt GYvvL081UTfeAlK5MDXvwgD yN8BiCHWwuIguIaO4s5L5Ha 4EJ9H1NV49VL88cGLnq4W9l EV0T2Uu EAMtbomdqrqurAQ9XBRcAJQ gaS98Yy5lhIuzTh6zYIBpGY A2WLVugSKzP8VhgL7rOsThW DAwMDAw T5KopRFzGBzmC501OJqwZoN 5CMFufeXzR0CpDDTneSefUl A2u0S4Gl8XMZc3YC10VV07f HWzn3I2 uNI5D8YnLJMxossmuskptCE 1IXPkFZIaxO62Pw1mjYrdUb 5nOCOpDVS0UOUaiFOnK6Mqd C7pMzFm RXJwFAKmT9CevXTeJQkoJ34 7NCsgYpF2NCZwueLaL5XyXZ PbgUmsUhL9a9Z3Wc7OSDLqB K32IYQ5 uGI3JI04KE60C7PfHngwvEQ ibGU+PHRhYmxlIHdpZHRoPS wqDTGgBkAldBevKS3qCm1xW GVyLWNv uCjknZZzBxWhz4hmUKEwCVg dLP4smKgdK0KlyKS3FBKcn1 z5Xx36T65sA4GdnZH+PGNvb LO5gMP9 mZ5hEiScHfR0LXbjU340PuD lcHVdTivuy5mht8dvfTl9Bx O8BBMwoqLahDlfFSB7k0JtD o32W21t IHdpZHRoPSIxNSUiIHZhbGl ivn5kfX4dPa4+ZYVhwYN8vL F8bU5hUvOkIiD6HYhcE137M nRvcCIv Zidxl6bwr8flmAb3RtXtFLK bboEhnKidKTB9s1BnKb11V9 VkmVidu7CqEwt3zs73zMCgf 1V0eNS5 I9RwQCGaopmcsQLolWapQZ0 pESKbgmfgUTNwfE8kRAKiT0 f7HkJfGwW5JZrrQ8BnzoC0Z DEwcHQg REsxPQC5O22at4K4RAAuQZL cDLZ3fPH7sJ6xkCzeufwbkN VmdDsgdmVydGljYWwtYWxpZ 246IHRv zAkqWMMqyE5zJVZeiXOuhEe iZS4yCSDqvpicBeOVGjPaKG VZDfhoCJ1VLJUDJN05P6SeP zr4ZRXx qObnJE0piCAyKFchMw2okRt erBexYX8zFBAmilyfIZCxxL 1oSZEreQQmyXhaCU6uOOOib okce948 CdScUBB2KLQpoYPkX0BdjV4 cOeJaTFMiLCUmL6XieFExZH niK445PSbsCfL0DQBssaCfD 2FsLWFs hYboFcF8x2W8Gx3yER3pFL8 hZHZcYK58QQ95hBHwe7E4vT L3G1KzGTAqrvzmbskdaEL3Y DAuMDUw aM44oKCmZNqzDx0zi6V4l87 9DLIdBGRixV67Sd0rkZhwEI QhmEQNrO3ezmrrs4vzgpxsB zAwMDAw ERq2TLf1KIBkgDcwAeZlKNJ 5PdW2OPD9iXYsyX0jpFqbqx bnyS4rHmh+TnPuNSXsrcN4U 8PuJha2 EKNtrPppYW2yyCXdDRsaDg3 ieEwyuVdkBQ1bMAUhpdyzPY KqzO7oDXQzsZQjtNgqRB8mN TBpbjtm w330CkYtJQE6WFZuqXVuZ0I ybH1fIjSsONJaKDTeS7BvhY CpTFirL274LIvkFuL3NBDey zCqG5Oy RTAvjTbgQbG1b9M4Ox8DIM8 yhMB5J0FsHms8MVXubIuyFM 8rrMOfOXldNv2yyKdidJmjK M0uQIIy tnamQPUsmI7dPDHqbXOvtUf xUS5yMCBgjdian279TqBjTF O5WXNzuADsF7EupR8fThKgU DAwMDAw W6XetMQqPXkgJ755KCwbRwX 2ERKdwtBtS3VfPLXzaBqzZe L5u2J5Rm9McKPtRWJfLY66Z P38XZ17 G7PcQdrsvFBxzSX+PHRhYmx lIHdpZHRoPScxMDAlJyBzdH fcTC0eRn6sDPZjKWIdiIads HNlOiBj d1ufSCSrMIojKQ3tpVhaR9X vtQO6UAQos3t1Aw84X16iR2 JvdXA+IHByrCD9sGD9lU7sX zAlIiB2 AMkjC890VdZejZYdXjinb3x cx3pbkHf4SiPsMIFsxcNipR zdLNB9a8RmZq61T20tYZdaD HRoPSIy ZDTsXQOzzQtikd9ouM8nTo6 +JYNsnXX5lGP3jA8aDjGwOu U0VPpyK841TuWrnZVoMgoaE 12lR6Io dXA+HEXwEgy1MOEkwDnwHM7 okOBuHLziAz6cEQR2DjVhSr EySIinU8EeQLNbraiiqhzcy OD7JMAb NHXvqH46Bl2gyYdtYn6mSFV eGJU4MFYccTBfR4XolA7vIp JtJDBnILRpN9CwtUPcSTtyL 246IGxl CxX9DJLfynYjU2NrGPXlkQc wZtX6b8E8Nj9SxQewhSZyNA 9qRgXqXQb1M8WyGku7WUEou EphNS9a aYIpUWdxBy3mzFkpjYujHB7 xBPHoqwzjt882LrHjt5wpML KgdGHzSOonQRM5X38fn1U1G CMwMDAw LLO1tWR1nX9szUkmyhalrSH mdDsgdmVydGljYWwtYWxpZ2 93QBOsaWplLkRBLgn2P9FsX qw1QGLd zImkZM0naXVaSNhqNr6goZu ihRbtCN7gNWTeahyyb475Gj Kdk7ayOGQzaSGkCDmtDYC3Q 04ai5P4 ZWBvXYUmYBN5fAT8dA2kzJe nbjogbGVmdDsgdmVydGljYW sgYYzoG159UMYojKxsUt7CW cp4D2Eu Ydg9WBQerOueJE9vzSGyPVg qMx7vePynqXjbFQ2eXEDrok rzw919LbEso4adPXHxoDRmZ GltZXM7 T20dl8D2FKObKZLdQNK0zWN 8yJ9efFcfzihwrMCfbCafxw NmaKnnRTxdCZagR969BCFtc DsnPlBh eWVyOjwvdGQ+UW61js98O9L iUnvgZkg4PNGrING1sNN4sF 1qSEFhZByhn3R0zNQ0V4Dbs tStha9t b2xs (more content not included)... Normal [facility] MRI Spine Lumbar w/o Contras ton 06-11-2022 [...] KENYA Technologist: ADRIEL Technical Comments None Normal [facility] Consent for Treatmenton 05-24 Consent for Treatment [id number]#1.00C D:127 Normal [facility] RAD - MISCon 06-09-2022 RAD - MISC [id number]#1.00C D:127 Normal [facility] RAD - MRI Screening Formon 0 06-09-2022 RAD - MRI Screening Form [id number]#1.00 CD:127 Normal [facility] Office/Clinic Note-Nurseon 0 06-04-2022 Office/Clinic Note-Nurse [id number]#1.00C D:127 Normal [facility] Physician Orderon 06-04-2022 Physician Order [id number]#1.00C D:127 Normal [facility] Physician Order [id number]#1.00C D:127 Normal [facility] Coding Summary.on 05-21-2022 Coding Summary. CD:[id number] Gh0 bWw+PGhlYWQ+CG6XJFCgY30 ozGEojR6WV5tQDS8EHHFNYR RJAC3CVN2krWR6SXujV7Aqx iAv JpdkzFPsGL27QPj0OYR6gLf cCWeebV5giJUcY8f2BeKsHQ 54nQ90EUpvGBLiQqJ4HmZwr jsgbWFy O7mkNdKdxWSfQdi+PHRhYmx lIHdpZHRoPScxMDAlJyBzdH qpZN3xGu8jYALjILMvdHkuv HNlOiBj k6gvGHTdGDfdKC3dlFtfL6Q xwVE1NDWuz3q5Kg94mCX+PH WdNCO3aRswOCryz278HpYdr 0exWPM7 fLPmKDpzAFR3B03vy9D5PSU kXHIhKIZ9nSA4jX0wpJofyt wjL1OqnZUvEsM5XRV0wADjq N5xoZxb lmptmW7pMzs+Q21ECA0DRXL SSX9KRhg2R0UlDvyszYQ+PC 99PGGfQJ11tXEtnXSto9src Lk3AhIe VIYnQAL1yRfmJXjle0YhQMC gW34ogPKgj1Z5VCVbdEpkhX OuOrBvdHT2aT0mAQbiicjos 2hvdzsn Qaiyw6asge01kL38L12aGQp zRRJdNCF7HDMpQYCgxBxicc 1cxA4jUe9+WCazj8svy2jsp Ds8ToSh FVTwfrYniSmlKTD8r4AqBa2 3V2XykPdlh7PqZeo5wt88wU Zrm4W5qRB3WEbgVLGanJ4kF WxlZnQ6 KVZnNsEljA45mAKgYJjfRs9 wmSjmmKqjUM6vVRTymgnbST RxmS0lMMCszTDxjCgbRC2jB TBpbjtm s860PuJmPGA8ZSRauECaI9E ljL0yRwXwOQYiYPPkX7WnbY GbOVsyK030SGyjUtG5BOMvl xPpY2Wi LOBeiCbpHsZ7b5G4Gh6Yp0M hlbywMGA5NAddPAZbYjS4Fz XpPwH3P8XxWva1FHUosXtzS J5pS3Bs QHDhkpuybwlwhYM3UNZtELT uhC29tRPwSBicQc5et5M8l4 34SLSdBHVmsR14Vo9msMfgR TBwdCBU jF2sosexq1cqujdgVnGtVLY qKWg2SDr1SXGyoJosEbWjHC L0CiZ7SCG0fOLsfX5ssKaol njblQ1w Oyc+X14ujF5sVCG1JTN7kqs nPDTtjtHgVF57PQ90U3MwWx wvdGFibGU+PGRpdiBzdHlsZ E7aBrWn d1jnq6FdTNxvP4KkBKYgWQs oLab3QCFcVQS5sIM5zE5fLG FaRHrdl5F1nSE4W9HzqnGms h1xk8mh CMVcJJvmN62weLHfl0W7FGH qcQF1KZRmeJmdRaApeX91Sr c+OREhgTtck1EwYxgil2whh 0wqrRp9 XqZcXXNzadQxlHfyGIX9t4S pJp36J64vTDluPCVoJKKtTV FwBVRcgZjckf9pcR7pXo8+P GNvbCB3 lMU5aM5nNRGsIjT5GKraW98 6RuZmpPXjMfivc6fhp4vwfF r0BdQfIDRwugXegAjpQCJ6z 0TfYj36 S52pMLulAQSpGXPpDLAuRDL wnPobun3swZ5hVy9+PC9jb2 uxdd29oA89nMS+TXBoSKT2p WxlPSdw VDOuuP0hTDegMwS6YOMqAbK gyL69qVOaQZuzFu0mkNapiI wmUN0rPDJhygomx155NjGpu 2xkIDEw eTIzYEhbFAO0L92ib2Z0NAR tBSSkKND5tHQ8wC5jqXzigz ogbGVmdDsgdmVydGljYWwtY EaqV347 IHRvcDsnPlBhdGllbnQgTmF nMCi0L4RfHjl9MXSxaXovSA 4hqBMeNZmiWc1zgXoweXiwR P0yMPXu rsjsv054NiTza8geLTKfhXU nLUpfPCO3C84ac7X6YBMmIF XcXZG9aUM3qR0ksUjwzjosd GVmdDsg aiFaiDvkBThdUTqmH949OBN ybYxjBuWltxKzWNEedNM3VJ 88AW41tTAyy1L9sAY5B0RkU GRpbmct xwbcxBT0CYEvRDHpvA93Hi2 juKqaUx1nBYJlVQN6WCEuuJ SgE8VeoO8yAnXdGMQoTAJyJ 3RleHQt IJdjR104WGdcNjV4BWSbaxU wS9IqYEEzbRqoNoE2e7L5Mw 1ER1L9BY33FX40cXJkf7H6j SW7A9Fv KGMwbgoqnufdjJU7PJUhSWT xaX03Rg9laNrePf9vIPOgRE W8OVJbsJWsA2XojK3wBdNmL DAwMDAw V8TsaEWpYKczS698XNftFuU 7RJFlrgUlT8NgYNFqlMkcVn Y0b3P3La6JAGw1HI55YK70u UOex4C6 yLL3K1MfRYShheaczsorsWU 5YDTkQOWaeT07Qz9qpBufOt 2iNDKtLTP4AVOqeRXzT9Bnr F8vMvEk TAZsJKFjS0YtbWUtCHqnK33 8TDpzInZ4YDPznzTjX0QzVX YxxThjYqO3u3Q6Pp0XYTReL F45HEA5 iXK6DA76NT51E2TcIchayFW ibGU+PHRhYmxlIHdpZHRoPS nuPRWxOhEflTrpYJ2cMu1gZ GVyLWNv wBfxcAXyTuNxm2fsOXJkJOc gSX0rlYvfF6SmmVW4DFSiy8 u8Lu55W01oV9KgnMA+PGNvb MR5fKG8 bX5sWaVsUkZ2RTvfR536QjT zbCMlNidqc9pgp0wnxHa3Xb Y2EABcgoOidVdwDXV8b7WfY t17C57i IHdpZHRoPSIxNSUiIHZhbGl evi3anB7rFm6+ZLGdvFO4gR O0aR6qDoGgNiA1JKaaH932K nRvcCIv Chocb2jnm5kzdWw6DqRgCQH attOjkVrxTQO0l4BrXl93F5 GuoVtdf8JsNcn4ir72qYSeo 7U3qMW1 C0JuVPJofwmirJIduApsAU0 iIRVfyunlOQJcvR5kSYAzQ3 r8VyNgRqW0WUnzJ9LxqvH1B DEwcHQg FGwuFVZ6K56fc2E0HHIpHPL sOAB2gQN4pB6agPnaqarxtN VmdDsgdmVydGljYWwtYWxpZ 246IHRv jDxlDZCcaT3fIFMujFOiwIu gHX9fOZAgarafBvPQKqXmGK DVMchnDI5OSTWYVR00L6TcK ha3HTXx wHjoFW0nuDCmHNmhUw9cyZw mfRnkTC0wDBTnykarIPMdeE 4qAUMsaGGxkFvvDQ3zHLDsr zjrm519 BsPzHAB9SQZdnPZdM1FwfL8 lGwKmHOQoXXTmX3CmvWClYI qhU463SPsbUpZ5IIDwwyQnO 2FsLWFs fUonOxI8g8Q5Kz9nSK5pNX9 tCRFyMA13EQ38nPCkn1B3cB I9C0PbKSAyhppejoowxEB7Y DAuMDUw tB65tJCeTIhbOo0ui0H6m05 9DVNgAJBtgE93On8nqFibZL FidRQKtZ2yjnrpp2dgswbpD zAwMDAw VTq4UNj1ZSVanOlcRjIaTKJ 3RtC6MKH6jFTizU4woKiuxy lmdI7mIhy+CgKnRFHsjgD3E 4XcFsa4 EZKrkUopZG9xpBHxEKtrNt4 yjOulfSosDK7xPKHvbpimTS OeyH5oMZNrkILqrAvaFS4yJ TBpbjtm a807CqYpUWA6YZWbaNZjD8W gvU5qNmKvNITqYBHeW3MtoS ZdYViuL291LJfnRpV2AXQko lEnN3Gy WXNanDlqAnK7v0L4Pr4LHF6 uePG8H8ZpJdd3ZHCdmQecPL 0kcLWvCEhlPh7hgYawjBorJ T7mIYAs cwejIDJwlM0wKZSklLUyhGk vOP6aYEIeftvum365XfFbNA J6VBMgwYRuC4FbxY0sMqXnV DAwMDAw M0HexTAjMUovP535LQanQwQ 2UULjuqIwB1HcFXDfzOyrAw I6t7S0Cu7HlKQbGUPaOC10V K72AF44 M8KvHkxmpJMgoKP+PHRhYmx lIHdpZHRoPScxMDAlJyBzdH yaOO7lHj5oZWOzGFQydJkio HNlOiBj b7yrEIIcWFveXG2bsZklX5I shMM8WGDvo4j7Ad32C15zY6 JvdXA+FSSezHR9cHE3rX0vM zAlIiB2 MWaxP972EpMljSDhBomqi0k pq2svrTr2MaTwUZUetzTxzO jyPMJ3c2HeBq45A00tPMuxE HRoPSIy UJJsZZYjwIrxan4zzS0wJv1 +VGMjfGL8lXG3kJ4vFpIyDu A8GEdfO578JcZkmWPjSxxgF 47yA5Bj dXA+YHRdOwc6AFYzhKzhZR3 oeXGoJQeaNl6bXZK2QuAhIy JiCHgyG0DrSTLxmxsoqjfbx VG8MIFl IBWlsG62Xo9mjSwxSg4oMUQ xVYF5QZChvWAaM5TfbJ0pKe XeAPRvPQZcN5VnqYWnUZxtU 246IGxl VhC1AEDqnpZvV1PfVDBbdKa iIpS4t9W9Op7VcPkzoFLwOG 7jRvOtKNi6Y0CkTmj4PKNdb IsjSJ2e lLIqXVobPh3imAbeiBveXY6 fWROsmnuny522NaBkp2jmDB UyoTWeVMuzGPZ7Y73md3V3N CMwMDAw RDK7lSV2lD5laDbcfenpkIQ mdDsgdmVydGljYWwtYWxpZ2 14RMMcjUpiSxWIYgl4V4VeJ ig3PQMs sHfpVF4bqKKlHNtuSn7xwQq dwFduEA3gLLMhrovvw573Gg Zwd0fnFGJnqTCuCKebHEO7G 75rz4W8 FYJvKJQsMJH2iMR3sN5upBa nbjogbGVmdDsgdmVydGljYW yxNQtqX804KYWjbIfxCl9IH zw4H3Oj Qgt1NFVhfUxjMT7ghHLiLSs mRr9trSjckHsoOW8kIMIvot dmz339GkFwq1bhVNAcrIDrP GltZXM7 M25dv2R1WADsISHkZXQ3sNR 2sN8hyCrkfmhakNDhpPmazn EhdWrsQWmdMTywK791BFCxz DsnPlBh eWVyOjwvdGQ+NW27pr10U9O sFatvAxr7ICWsVHQ3qZZ9dB 2kVZJqQMazi3Q1uMO6E6Qcj lTlfg7m b2xs (more content not included)... Normal [facility] Consent for Treatmenton 04-24 Consent for Treatment [id number]#1.00 CD:127 Normal [facility] HIPAA Forms Officeon 022 HIPAA Forms Office [id number]#1.00C D:127 Normal [facility] Legal Correspondence Officeo n 05-19-2022 Legal Correspondence Office [id number]#1.00C D:127 Normal [facility] Office/Clinic Note-Physician on 05-19-2022 Office/Clinic Note-Physician [id number]#1.00C D:127 Normal [facility] Patient History Officeon Patient History Office [id number]#1.00C D:127 Normal [facility] Outside Records Officeon Outside Records Office [id number]#1.00 CD:127 Normal [facility] Radiology Outside Office Medical Support Specialist yon 05-12-2022 Radiology Outside Office Copy [id number]#1.00 CD:127 Normal [facility] Radiology Outside Office Copy [id number]#1.00 CD:127 Normal [facility] Referrals Officeon 2 Referrals Office [id number]#1.00 CD:127 Normal [facility] CT LSPINE WO CONon 2 CT [...] WILVER HANNAH Date: 2022-05-04 08:26 Normal [facility] CT PELVIS WO CONon 2 CT PELVIS [...] the visualized spine Electronically authenticated by: WILVER HANNHA Date: 2022-05-01 14:57 Normal [facility] OVA AND PARASITE EXAMINATION on 04-30-2022 O AND P Exam, Formalin Only Final report Normal [facility] Comment on above: Result Comment: Refe rence Range: None Seen No PVA preserved specimen received. For optimal O and P results we suggest the use of O and P kits containing both formalin and PVA. These kits are available from your nursing service administrator. Performed By: #### P ANCEF #### [facility] Laboratory [address] [address] [address] Fernanda Sanon Result 1 Comment Normal [facility] Comment on above: Result Comment: No o va, cysts, or parasites seen. . One negative specimen does not rule out the possibility of a parasitic infection. Performed By: #### P ANCEF #### [facility] [address] [address] [address] Fernanda Sanon CALPROTECTIN, FECALon 2021 Calprotectin, Fecal 83 ug/g Normal 0-120 [facility] Comment on above: Result Comment: Conc entration Interpretation Follow-Up <16 - 50 ug/g Normal None >50 -120 ug/g Borderline Re-evaluate in 4-6 weeks >120 ug/g Abnormal Repeat as clinically indicated Performed By: #### C ALPOO #### [facility] [address] [address] [address] Fernanda Sanon PANCREATIC ELASTASE FECALon 04-26-2022 Pancreatic Elastase, Fecal 415 ug Elast./g Normal >200 [facility] Comment on above: Result Comment: Shayna re Pancreatic Insufficiency: <100 Moderate Pancreatic Insufficiency: 100 - 200 Normal: >200 Performed By: #### P ANCEF #### [facility] [address] [address] [address] Fernanda Sanon GI PANEL (PCR)on 04-22-2022 Adenovirus F 40/41 Not detected Normal NOT DETECTED [facility] Comment on above: Performed By: #### G IPANEL #### [facility] [address] [place] [address] Dr. Fernanda Sanon Astrovirus Not detected Normal NOT DETECTED [facility] Comment on above: Performed By: #### G IPANEL #### [facility] [address] [address] [address] Fernanda Maurice. Diff toxin A/B Not detected Normal NOT DETECTED [facility] Comment on above: Performed By: #### G IPANEL #### [facility] [address] [place] [address] Dr. Fernanda Sanon Campylobacter Not detected Normal NOT DETECTED [facility] Comment on above: Performed By: #### G IPANEL #### [facility] [address] [address] [address] Fernanda Sanon Cryptosporidium Not detected Normal NOT DETECTED [facility] Comment on above: Performed By: #### G IPANEL #### [facility] [address] [place] [address] Dr. Fernanda Sanon Cyclos. Cayetanensis Not detected Normal NOT DETECTED [facility] Comment on above: Performed By: #### G IPANEL #### [facility] [address] [place] [address] Dr. Fernanda Sanon E. Coli O157 Not Applicable Normal Not Applicable [facility] Comment on above: Performed By: #### G IPANEL #### [facility] [address] [place] [address] Dr. Fernanda Sanon E. histolytica Not detected Normal NOT DETECTED The [facility] Comment on above: Performed By: #### G IPANEL #### [facility] [address] [place] [address] Dr. Fernanda Sanon EAEC Not detected Normal NOT DETECTED [facility] Comment on above: Performed By: #### G IPANEL #### [facility] [address] [place] [address] Dr. Fernanda Sanon EIEC Not detected Normal NOT DETECTED [facility] Comment on above: Performed By: #### G IPANEL #### [facility] [address] [place] [address] Dr. Fernanda Sanon EPEC Not detected Normal NOT DETECTED [facility] Comment on above: Performed By: #### G IPANEL #### [facility] [address] [place] [address] Dr. Fernanda Sanon ETEC Not detected Normal NOT DETECTED [facility] Comment on above: Performed By: #### G IPANEL #### [facility] [address] [place] [address] Dr. Fernanda Medina. Lamblia Not detected Normal NOT DETECTED [facility] Comment on above: Performed By: #### G IPANEL #### [facility] [address] [place] [address] Dr. Fernanda ORTEGAL CONTROLS PASSED Normal [facility] Comment on above: Performed By: #### G IPANEL #### [facility] [address] [place] [address] Dr. Fernanda PIZARRO LADI HEADER GI PANEL BACTERIA Normal [facility] Comment on above: Performed By: #### G IPANEL #### [facility] [address] [place] [address] DrSpenser KENNYLI GI PANEL DIARRHEAGEN IC E.COLI / SHIGELLA Normal [facility] Comment on above: Performed By: #### G IPANEL #### [facility] [address] [address] [address] Fernanda SAUER INFO SEE BELOW Normal [facility] Comment on above: Result Comment: EAEC - Enteroaggregative E. Coli EPEC- Enteropathogenic E. Coli ETEC- Enterotoxigenic E. Coli lt/st STEC- Shigella-like toxin-producing E. Coli stx1/stx2 EIEC- Shigella/Enteroinvasive E. Coli Performed By: #### G IPANEL #### [facility] [address] [address] [address] Fernanda SAUER PARASITES GI PANEL PARASITES Normal [facility] Comment on above: Performed By: #### G IPANEL #### [facility] [address] [place] [address] Dr. Fernanda SAUER VIRUS GI PANEL VIRUSES Normal [facility] Comment on above: Performed By: #### G IPANEL #### [facility] [address] [place] [address] Dr. Fernanda Sanon Norovirus GI/GII Not detected Normal NOT DETECTED [facility] Comment on above: Performed By: #### G IPANEL #### [facility] [address] [place] [address] Dr. Fernanda Sanon P. Shigelloides Not detected Normal NOT DETECTED [facility] Comment on above: Performed By: #### G IPANEL #### [facility] [address] [address] [address] Fernanda Sanon Rotavirus A Not detected Normal NOT DETECTED [facility] Comment on above: Performed By: #### G IPANEL #### [facility] [address] [place] [address] Dr. Fernanda Sanon Salmonella Not detected Normal NOT DETECTED [facility] Comment on above: Performed By: #### G IPANEL #### [facility] [address] [address] [address] Fernanda Sanon Sapovirus Not detected Normal NOT DETECTED [facility] Comment on above: Performed By: #### G IPANEL #### [facility] [address] [address] [address] Fernanda Sanon STEC Not detected Normal NOT DETECTED [facility] Comment on above: Performed By: #### G IPANEL #### [facility] [address] [address] [address] Fernanda Sanon Vibrio Not detected Normal NOT DETECTED [facility] Comment on above: Performed By: #### G IPANEL #### [facility] [address] [address] [address] Fernanda Sanon Vibrio Cholera Not detected Normal NOT DETECTED [facility] Comment on above: Performed By: #### G IPANEL #### [facility] [address] [place] [address] Dr. Fernanda Sanon Y. Enterocolitica Not detected Normal NOT DETECTED [facility] Comment on above: Performed By: #### G IPANEL #### [facility] [address] [place] [address] Dr. Fernanda Sanon POINT OF CARE GLUCOSEon 0 Glucose [Mass/Vol] 81 mg/dL Normal 74-[address] [facility] Comment on above: Performed By: #### P ANCEF #### [facility] [address] [place] [address] Dr. Fernanda Sanon XR FOOT BOWEN MIN [...] by: WILVER HANNAH Date: 2022-03-24 12:02 Normal [facility] GLYCOHEMOGLOBIN A1Con 2021 ADA RECOMMENDATION SEE BELOW Normal [facility] Comment on above: Result Comment: ADA RECOMMENDED LIMIT 4.0 - 6.0 ADA THERAPEUTIC TARGET < 7.0 ACTION SUGGESTED > 7.0 Performed By: #### P ANCEF #### [facility] [address] [address] [address] Fernanda Sanon Glucose [Mass/Vol] 148 mg/dL Normal [facility] Comment on above: Performed By: #### P ANCEF #### [facility] [address] [address] [address] Fernanda Sanon HbA1c (Bld) [Mass fraction] 6.8 % Critically high 4.5-6.2 [facility] Comment on above: Performed By: #### P ANCEF #### [facility] [address] [place] [address] Dr. Fernanda Sanon LIPID PROFILEon 03-10-2022 CHOL-HDL RATIO NORM SEE BELOW Normal [facility] Comment on above: Result Comment: 3.3 - 4.4 LOW RISK 4.4 - 7.1 AVERAGE RISK 7.1 - 11.0 MODERATE RISK >11.0 HIGH RISK Performed By: #### L IPID, TSH, BMP #### [facility] [address] [place] [address] Dr. Fernanda Sanon Cholesterol [Mass/Vol] 141 mg/dL Normal <=200 [facility] Comment on above: Performed By: #### L IPID, TSH, BMP #### [facility] [address] [address] [address] Fernanda Sanon Cholesterol in HDL [Mass/Vol] 74 mg/dL Critically high 40-60 [facility] Comment on above: Performed By: #### L IPID, TSH, BMP #### [facility] [address] [address] [address] Fernanda Sanon Cholesterol in LDL [Mass/Vol] 57.6 mg/dL Normal [facility] Comment on above: Performed By: #### L IPID, TSH, BMP #### [facility] [address] [address] [address] Fernanda Sanon Cholesterol.total/C holesterol in HDL [Mass ratio] 1.9 {ratio} Normal [facility] Comment on above: Performed By: #### L IPID, TSH, BMP #### [facility] [address] [address] [address] Fernanda Sanon HDL NORMAL > or = 60 mg/dl - LO W CARDIOVASCULAR RISK <40 mg/dl - HIGH CARDIOVASCULAR RISK Normal [facility] Comment on above: Performed By: #### L IPID, TSH, BMP #### [facility] [address] [place] [address] Dr. Fernanda Sanon LDL CALC NORMAL SEE BELOW Normal [facility] Comment on above: Result Comment: <100 mg/dl OPTIMAL 100 - 129 mg/dl NEAR OR ABOVE OPTIMAL 130 - 159 mg/dl BORDERLINE HIGH 160 - 189 mg/dl HIGH >190 mg/dl VERY HIGH Performed By: #### L IPID, TSH, BMP #### [facility] [address] [place] [address] Dr. Fernanda Sanon Triglyceride [Mass/Vol] 47 mg/dL Normal <=150 [facility] Comment on above: Performed By: #### L IPID, TSH, BMP #### [facility] [address] [place] [address] Dr. Fernanda Sanon VLDL CALC 9.4 mg/dL Normal [facility] Comment on above: Performed By: #### L IPID, TSH, BMP #### [facility] [address] [place] [address] Dr. Fernanda Sanon MICROALBUMIN, RAND URon - mALB 1.3 mg/L Normal <=30.0 [facility] Comment on above: Performed By: #### M ALBR #### [facility] [address] [place] [address] Dr. Fernanda Sanon PROF CHEM 8 (BAS METB)on Anion gap [Moles/Vol] 12.6 mmol/L Normal [facility] Comment on above: Performed By: #### L IPID, TSH, BMP #### [facility] [address] [address] [address] Fernanda Sanon Calcium [Mass/Vol] 9.7 mg/dL Normal 8.5-10.1 [facility] Comment on above: Performed By: #### L IPID, TSH, BMP #### [facility] [address] [address] [address] Fernanda Sanon Chloride [Moles/Vol] 104 mmol/L Normal 98-107 [facility] Comment on above: Performed By: #### L IPID, TSH, BMP #### [facility] [address] [place] [address] Dr. Fernanda Sanon CO2 [Moles/Vol] 29.2 mmol/L Normal 21.0-32.0 [facility] Comment on above: Performed By: #### L IPID, TSH, BMP #### [facility] [address] [place] [address] Dr. Fernanda Sanon Creatinine [Mass/Vol] 1.20 mg/dL Critically high 0.55-1.02 [facility] Comment on above: Performed By: #### L IPID, TSH, BMP #### [facility] [address] [place] [address] Dr. Fernanda Sanon EGFR-AF ROMANIAN 54 mL/min/1.73m2 Critically low >=60 [facility] Comment on above: Performed By: #### L IPID, TSH, BMP #### [facility] [address] [place] [address] Dr. Fernanda Sanon EGFR-NON AF ROMANIAN 44 mL/min/1.73m2 Critically low >=60 [facility] Comment on above: Performed By: #### L IPID, TSH, BMP #### [facility] [address] [place] [address] Dr. Fernanda Sanon Glucose [Mass/Vol] 122 mg/dL Critically high 74-[address] [facility] Comment on above: Performed By: #### L IPID, TSH, BMP #### [facility] [address] [place] [address] Dr. Fernanda Sanon Potassium [Moles/Vol] 4.8 mmol/L Normal 3.5-5.1 [facility] Comment on above: Performed By: #### L IPID, TSH, BMP #### [facility] [address] [address] [address] Fernanda Sanon Sodium [Moles/Vol] 141 mmol/L Normal 136-145 [facility] Comment on above: Performed By: #### L IPID, TSH, BMP #### [facility] [address] [address] [address] Fernanda Sanon Urea nitrogen [Mass/Vol] 39.0 mg/dL Critically high 7.0-18.0 [facility] Comment on above: Performed By: #### L IPID, TSH, BMP #### [facility] [address] [place] [address] Dr. Fernanda Sanon Urea nitrogen/Creatinine [Mass ratio] 32.5 mg/mg Normal [facility] Comment on above: Performed By: #### L IPID, TSH, BMP #### [facility] [address] [address] [address] Fernanda Sanon TSHon 03-10-2022 TSH 2.050 uIU/mL Normal 0.358-3.740 [facility] Comment on above: Performed By: #### L IPID, TSH, BMP #### [facility] [address] [place] [address] Dr. Fernanda Sanon POINT OF CARE GLUCOSEon 02-21 Glucose [Mass/Vol] 124 mg/dL Critically high 74-[address] [facility] Comment on above: Performed By: #### P ANCEF #### [facility] [address] [address] [address] Fernanda Sanon Urinalysis with Microscopico n 01-20-2022 Bilirubin Urine Negative NEGATIVE [facility] Color, UA Yellow Yellow [facility] Epithelial Cells UA 0 TO 2 [facility] Glucose, Ur Negative NEGATIVE [facility] Interpretation and review of laboratory results Abnormal [facility] Ketones Ql (U) TRACE Abnormal NEGATIVE [facility] [employer] Leukocyte esterase Test strip Ql (U) Negative NEGATIVE [facility] Mucus, UA 1+ Abnormal None [facility] Nitrite, Urine Negative NEGATIVE [facility] pH, UA 6.0 5 - 9 [facility] Protein, UA Negative NEGATIVE [facility] RBC, UA 0 TO 2 [facility] Specific [place], UA High 1.01 - 1.02 [facility] Turbidity UA Clear Clear [facility] Urine Hgb Negative NEGATIVE [facility] Urobilinogen, Urine Normal Normal [facility] [employer] WBC, UA 0 TO 2 [facility] MG MAMM SCREEN 3D BOWEN CADon 12-25-2021 MG MAMM SCREEN 3D BOWEN CAD Patient: ASHLEE BANERJEE Exam Date: 12/25/2021 : 1950 Gender:F Ordering : DR DESTINEE COUGHLIN [facility] Admission #: [id number] Family : Order #: [id number] CLICK HERE TO VIEW EXAM RADIOLOGY REPORT [...] thyroid cancer at age 62. LOCATION: [facility] BREAST COMPOSITION: Heterogeneously dense,which may obscure small [...] M.D. on 12/26/2021 at 11:11 Normal [facility] Urinalysis with Microscopico n 11-18-2021 - [facility] Bacteria, UA 2+ Abnormal None [facility] Bilirubin Urine Negative NEGATIVE [facility] Color, UA Yellow Yellow [facility] Epithelial Cells UA 2 TO 5 [facility] Glucose, Ur Negative NEGATIVE [facility] Interpretation and review of laboratory results Abnormal [facility] Ketones Ql (U) TRACE Abnormal NEGATIVE [facility] Leukocyte esterase Test strip Ql (U) Negative NEGATIVE [facility] Mucus, UA 2+ Abnormal None [facility] Nitrite, Urine Negative NEGATIVE [facility] pH, UA 5.5 [facility] Protein, UA TRACE Abnormal NEGATIVE [facility] RBC, UA 0 TO 2 [facility] Specific [place], UA >1.030 High [facility] Turbidity UA Clear Clear [facility] Urine Hgb Negative NEGATIVE [facility] Urobilinogen, Urine Normal Normal [facility] WBC, UA 0 TO 2 [facility] POINT OF CARE GLUCOSEon 05-2 Glucose [Mass/Vol] 105 mg/dL Normal 74-[address] [facility] Comment on above: Performed By: #### P ANCEF #### [facility] [address] [address] [address] Fernanda Sanon Basic Metabolic Panelon 03-0 Anion gap [Moles/Vol] 10 mmol/L 9 - 17 mmol/L [facility] Calcium [Mass/Vol] 10.2 mg/dL 8.6 - 10. 4 mg/dL [facility] [facility] Chloride [Moles/Vol] 105 mmol/L 98 - 107 mmol/L [facility] CO2 [Moles/Vol] 26 mmol/L 20 - 31 mmol/L [facility] Creatinine [Mass/Vol] 1.01 mg/dL High 0.50 - 0.90 mg/dL [facility] GFR >60 >60 mL/min [facility] GFR Non- 54 mL/min Low >60 [facility] Glucose [Mass/Vol] 102 mg/dL High 70 - 99 mg/dL [facility] Interpretation and review of laboratory results Abnormal [facility] Potassium [Moles/Vol] 4.1 mmol/L 3.7 - 5.3 mmol/L [facility] Sodium [Moles/Vol] 141 mmol/L 135 - 144 mmol/L [facility] Urea nitrogen (BldV) [Mass/Vol] 32 mg/dL High 8 - 23 mg/dL [facility] Urea nitrogen/Creatinine (Bld) [Mass ratio] 32 High [facility] CBC Auto Differentialon 03-0 Absolute Eos # 0.26 [facility] Absolute Immature Granulocyte <0.03 [facility] Absolute Lymph # 1.09 Low [facility] alth Absolute [place] # 0.54 [facility] lth Basophils (Bld) [#/Vol] 0.05 10*3/uL [facility] Basophils/100 WBC (Bld) 1 % 0 - 2 % [facility] Eosinophils/100 WBC (Bld) 4 % 1 - 4 % [facility] Hematocrit (Bld) [Volume fraction] 40.2 % 36.3 - 47.1 % [facility] Hemoglobin.gastroin testinal spec 1 Ql (Stl) 12.3 g/dL 11.9 - 15.1 g/dL [facility] Immature granulocytes/100 WBC (Bld) 0 % 0 [facility] Interpretation and review of laboratory results Abnormal [facility] Lymphocytes/100 WBC (Bld) 18 % Low 24 - 43 % [facility] MCH (RBC) [Entitic mass] 29.4 pg 25.2 - 33.5 pg [facility] MCHC (RBC) [Mass/Vol] 30.6 g/dL 28.4 - 34.8 g/dL [facility] MCV (RBC) [Entitic vol] 95.9 fL 82.6 - 102.9 fL [facility] Monocytes/100 WBC (Bld) 9 % 3 - 12 % [facility] NRBC Automated 0.0 0.0 per 100 WBC [facility] Platelet distribution width (Bld) [Ratio] 12.5 % 11.8 - 14.4 % [facility] Platelets (Bld) [#/Vol] See Reflexed IPF Result [facility] RBC (Bld) [#/Vol] 4.19 10*6/uL 3.95 - 5.1 1 m/uL [facility] Segmented neutrophils/100 WBC (Bld) 69 % High 36 - 65 % [facility] Absolute 4.26 [facility] h WBC (Bld) [#/Vol] 6.2 10*3/uL [facility] E[facility] 12 LeadOrdered By: Lamberto Wilson on 07-23-2021 Atrial Rate 69 BPM [facility] Work Phone: P [place] 64 degrees [facility] Work Phone: P-R Interval 130 ms [facility] Work Phone: Q-T Interval 366 ms [facility] Work Phone: QRS Duration 82 ms [facility] Work Phone: QTc Calculation (Bazett) 392 ms [facility] Work Phone: R [place] 27 degrees [facility] Work Phone: T [place] 34 degrees [facility] Work Phone: Ventricular Rate 69 BPM [facility] Work Phone: [facility] Work Phone: EKG 12 Leadon 07-23-2021 Normal sinus rhythm Possible Left atrial enlargement Borderline ECG When compared with ECG of 16-MAR-2016 09:54, No significant change was found Confirmed by MONI WILSON ([id number]) on 07/23/2021 1:56:02 PM [facility] Moni Wilson MD - 07/23/2021 Normal sinus rhythm Possible Left atrial enlargement Borderline ECG When compared with ECG of 16-MAR-2016 09:54, No significant change was found Confirmed by MONI WILSON ([id number]) on 07/23/2021 1:56:02 PM [facility] Work Phone: Immature Platelet Fractionon 07-23-2021 Interpretation and review of laboratory results Abnormal [facility] Platelet, Fluorescence 133 Low [facility] Platelet, Immature Fraction 3.7 % 1.1 - 10.3 % [facility] - Chemistry and C hemistry - challengeon 07-23-2021 GFR/1.73 sq M.predicted MDRD (S/P/Bld) [Vol rate/Area] [facility] Comment on above: Average GFR for 70 o r more years old: 75 mL/min/1.73sq m Chronic Kidney Disease: <60 mL/min/1.73sq m Kidney failure: <15 mL/min/1.73sq m eGFR calculated using average adult body mass. Additional eGFR calculator available at: http://www.[employer]/multiple_crcl_2012.htm Stage 1: Some kidney damage normal GFR Stage 2: Mild kidney damage GFR 60-89 Stage 3: Moderate kidney damage GFR 30-59 Stage 4: Severe kidney damage GFR 15-29 Stage 5: Severe kidney damage GFR <15 ESRD - chronic treatment by dialysis or transplant Urinalysis With Microscopico n 2019 Amorphous, UA NOT REPORTED None [place] Bacteria, UA NOT REPORTED None [place] Bilirubin Urine Negative NEGATIVE [place] Casts UA NOT REPORTED /LPF [place] Color, UA YELLOW YELLOW [place] Crystals, UA NOT REPORTED None /HPF [place] Epithelial Cells UA 0 TO 2 [place] Glucose, Ur Negative NEGATIVE [place] Interpretation and review of laboratory results Abnormal [place] Ketones Ql (U) TRACE Abnormal NEGATIVE [place] Leukocyte esterase Test strip Ql (U) MODERATE Abnormal NEGATIVE [place] Mucus, UA NOT REPORTED None [place] Nitrite, Urine Negative NEGATIVE [place] Other Observations UA NOT REPORTED NOT REQ. [place] pH, UA 5.5 [place] Protein (U) [Mass/Vol] Negative NEGATIVE [place] RBC (U) [#/Vol] 0 TO 2 [facility] [place] Renal Epithelial, UA NOT REPORTED 0 /HPF [place] Specific [place], UA >1.030 High [place] Trichomonas, UA NOT REPORTED None [facility] [place] Turbidity UA CLEAR CLEAR [place] Urinalysis Comments NOT REPORTED [place] Urine Hgb Negative NEGATIVE [place] Urobilinogen, Urine Normal Normal [place] WBC, UA 5 TO 10 [place] Yeast, UA NOT REPORTED None [place] - [place] Otheron 02-24-2019 Unremarkable bowel-g as pattern. Indeterminate right upper quadrant calcification most likely reflects cholelithiasis, as seen on prior CT. Possible calculus versus vascular calcification overlying the left renal shadow. No stone at this level on CT 1 year ago. [place] EXAMINATION: ONE SUP INE XRAY VIEW(S) [...] wing, lead overlying the inferior right sacrum. [place] Souleymane, Mhpn Incoming Radiant Results From [employer] - 02/24/2019 3:08 PM EDT EXAMINATION: ONE [...] this level on CT 1 year ago. [place] Urinalysis with Microscopico n 01-06-2019 Amorphous, UA NOT REPORTED None [place] Bacteria, UA NOT REPORTED None [place] Bilirubin Urine Negative NEGATIVE [place] Casts UA NOT REPORTED /LPF [place] Color, UA YELLOW YELLOW [place] Crystals UA NOT REPORTED None /HPF [place] Epithelial Cells UA 0 TO 2 [place] Glucose, Ur Negative NEGATIVE [place] Interpretation and review of laboratory results Abnormal [place] Ketones Ql (U) Negative NEGATIVE [place] Leukocyte esterase Test strip Ql (U) SMALL Abnormal NEGATIVE [place] Mucus, UA NOT REPORTED None [place] Nitrite, Urine Negative NEGATIVE [place] Other Observations UA NOT REPORTED NOT REQ. [place] pH, UA 5.5 [place] Protein (U) [Mass/Vol] Negative NEGATIVE [place] RBC (U) [#/Vol] 0 TO 2 [place] Renal Epithelial, Urine NOT REPORTED 0 /HPF [place] Specific [place], UA 1.020 [place] Trichomonas, UA NOT REPORTED None [place] Turbidity UA CLEAR CLEAR [place] Urinalysis Comments NOT REPORTED [place] Urine Hgb Negative NEGATIVE [place] Urobilinogen, Urine Normal Normal [place] WBC, UA 2 TO 5 [place] Yeast, UA NOT REPORTED None [place] Vital Signs Date Time Vital Sign Value Performing Clinician Facility 10-03-2024 12:00-0400 Body temperature 98.8 [degF] Juice Melendez MD Work Phone: [facility] 10-03-2024 12:00-0400 Heart rate 74 /min Juice Melendez MD Work Phone: [facility] 10-03-2024 12:00-0400 Respiratory rate 21 /min Juice Melendez MD Work Phone: [facility] 10-03-2024 11:35-0400 Diastolic blood pressure 78 mm[Hg] Juice Melendez MD Work Phone: [facility] 10-03-2024 11:35-0400 Systolic blood pressure 164 mm[Hg] Juice Melendez MD Work Phone: [facility] 10-03-2024 06:00-0400 Body mass index (BMI) [Ratio] 30.23 kg/m2 Juice Melendez MD Work Phone: [facility] 10-03-2024 06:00-0400 Body weight 72.58 kg Juice Melendez MD Work Phone: [facility] 10-02-2024 15:15-0400 SaO2% (BldA) [Mass fraction] 100 % Juice Melendez MD Work Phone: [facility] 09-29-2024 18:00-0400 Heart rate 76 /min Cooper Eller MD Work Phone: [facility] [employer] 09-29-2024 18:00-0400 Respiratory rate 19 /min Cooper Eller MD Work Phone: [employer] 09-29-2024 18:00-0400 SaO2% (BldA) [Mass fraction] 98 % Cooper Eller MD Work Phone: [employer] 09-29-2024 17:30-0400 Diastolic blood pressure 44 mm[Hg] Cooper Eller MD Work Phone: [employer] 09-29-2024 17:30-0400 Systolic blood pressure 104 mm[Hg] Cooper Eller MD Work Phone: [facility] [employer] 09-29-2024 15:45-0400 Body temperature 100 [degF] Cooper Eller MD Work Phone: [facility] 09-29-2024 07:01-0400 Body height 154.9 cm Cooper Eller MD Work Phone: [facility] 09-29-2024 03:31-0400 Body mass index (BMI) [Ratio] 29.3 kg/m2 Cooper Eller MD Work Phone: [facility] 09-29-2024 03:31-0400 Body weight 70.3 kg Cooper Eller MD Work Phone: [facility] 09-20-2024 14:30-0400 Diastolic blood pressure 64 mm[Hg] Rylie Whipple II, MD Work Phone: [facility] 09-20-2024 14:30-0400 Heart rate 82 /min Rylie Whipple II, MD Work Phone: [facility] 09-20-2024 14:30-0400 SaO2% (BldA) [Mass fraction] 97 % Rylie Whipple II, MD Work Phone: [facility] 09-20-2024 14:30-0400 Systolic blood pressure 142 mm[Hg] Rylie Whipple II, MD Work Phone: [facility] 09-20-2024 13:00-0400 Respiratory rate 16 /min Rylie Whipple II, MD Work Phone: [facility] 11-29-2023 13:17-0400 Body height 154.9 cm Lakisha Cordoba MD Work Phone: [facility] 11-29-2023 13:17-0400 Body mass index (BMI) [Ratio] 26.07 kg/m2 Lakisha Cordoba MD Work Phone: [facility] 11-29-2023 13:17-0400 Body temperature 98.4 [degF] Lakisha Cordoba MD Work Phone: [facility] 11-29-2023 13:17-0400 Body weight 62.6 kg Lakisha Cordoba MD Work Phone: [facility] 11-29-2023 13:17-0400 Diastolic blood pressure 62 mm[Hg] Lakisha Cordoba MD Work Phone: [facility] 11-29-2023 13:17-0400 Heart rate 76 /min Lakisha Cordoba MD Work Phone: [facility] 11-29-2023 13:17-0400 SaO2% (BldA) [Mass fraction] 99 % Lakisha Cordoba MD Work Phone: [facility] 11-29-2023 13:17-0400 Systolic blood pressure 132 mm[Hg] Lakisha Cordoba MD Work Phone: [facility] 03-23-2023 19:08-0400 Heart rate 77 /min Dee Aline [employer]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 [facility] 03-23-2023 10:41-0400 Body height 154.9 cm Dee Funezes E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 [facility] 03-23-2023 10:41-0400 Body mass index (BMI) [Ratio] 30.04 kg/m2 Dee Aline E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 [facility] 03-23-2023 10:41-0400 Body temperature 98.01 [degF] Dee Funezes E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 Work Phone: [employer] 03-23-2023 10:41-0400 Body weight 72.12 kg Dee Aline E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 Work Phone: [employer] 03-23-2023 10:41-0400 Diastolic blood pressure 67 mm[Hg] Dee Aline E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 Work Phone: [employer] 03-23-2023 10:41-0400 Heart rate 79 /min Dee Aline E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 Work Phone: [facility] 03-23-2023 10:41-0400 Respiratory rate 12 /min Dee Mireles E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 Work Phone: [facility] 03-23-2023 10:41-0400 SaO2% (BldA) [Mass fraction] 100 % Dee Mireles E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 Work Phone: [facility] 03-23-2023 10:41-0400 Systolic blood pressure 123 mm[Hg] Dee Mireles E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 Work Phone: [facility] 11-10-2022 09:57-0400 Diastolic blood pressure 72 mm[Hg] Gerry Rosalino [facility] 11-10-2022 09:57-0400 Heart rate 68 /min Gerry Rosalino [facility] 11-10-2022 09:57-0400 Mean blood pressure 98 mm[Hg] Gerry Rosalino [facility] 11-10-2022 09:57-0400 Respiratory rate 16 /min Gerry Rosalino [facility] 11-10-2022 09:57-0400 Systolic blood pressure 150 mm[Hg] Gerry Rosalino [facility] 06-16-2022 13:42-0500 Diastolic blood pressure 75 mm[Hg] Janie [email or web address] [facility] 06-16-2022 13:42-0500 Heart rate 65 /min Janie [email or web address] [facility] 06-16-2022 13:42-0500 Mean blood pressure 97 mm[Hg] Janie Henning [facility] 06-16-2022 13:42-0500 Respiratory rate 18 /min Janie [email or web address] [facility] 06-16-2022 13:42-0500 Systolic blood pressure 140 mm[Hg] Janie Henning [facility] 05-19-2022 12:15-0500 Diastolic blood pressure 82 mm[Hg] Geri Vergara [facility] 05-19-2022 12:15-0500 Heart rate 62 /min Geri Vergara [facility] 05-19-2022 12:15-0500 Mean blood pressure 95 mm[Hg] Geri Vergara [facility] 05-19-2022 12:15-0500 Respiratory rate 18 /min Geri Vergara [facility] 05-19-2022 12:15-0500 Systolic blood pressure 120 mm[Hg] Geri Vergara [facility] 08-05-2021 16:30-0400 Diastolic blood pressure 76 mm[Hg] Mj Alvarenga MD Work Phone: [facility] 08-05-2021 16:30-0400 Heart rate 71 /min Mj Alvarenga MD Work Phone: [facility] 08-05-2021 16:30-0400 Respiratory rate 18 /min Mj Alvarenga MD Work Phone: [facility] 08-05-2021 16:30-0400 SaO2% (BldA) [Mass fraction] 98 % Mj Alvarenga MD Work Phone: [facility] 08-05-2021 16:30-0400 Systolic blood pressure 148 mm[Hg] Mj Alvarenga MD Work Phone: [facility] 08-05-2021 15:50-0400 Body temperature 98.1 [degF] Mj Alvarenga MD Work Phone: [facility] 08-05-2021 12:44-0400 Body height 154.9 cm Mj Alvarenga MD Work Phone: [employer] 08-05-2021 12:44-0400 Body mass index (BMI) [Ratio] 30.12 kg/m2 Mj Alvarenga MD Work Phone: [facility] 08-05-2021 12:44-0400 Body weight 72.3 kg Mj Alvarenga MD Work Phone: [employer] 07-23-2021 09:04-0500 Body height 154.9 cm Mj Alvarenga MD Work Phone: [employer] 07-23-2021 09:04-0500 Body mass index (BMI) [Ratio] 30.89 kg/m2 Mj Alvarenga MD Work Phone: [employer] 07-23-2021 09:04-0500 Body temperature 97.11 [degF] Mj Alvarenga MD Work Phone: [employer] 07-23-2021 09:04-0500 Body weight 74.16 kg Mj Alvarenga MD Work Phone: [employer] 07-23-2021 09:04-0500 Diastolic blood pressure 73 mm[Hg] Mj Alvarenga MD Work Phone: [employer] 07-23-2021 09:04-0500 Heart rate 77 /min Mj Alvarenga MD Work Phone: [employer] 07-23-2021 09:04-0500 Respiratory rate 20 /min Mj Alvarenga MD Work Phone: [employer] 07-23-2021 09:04-0500 SaO2% (BldA) [Mass fraction] 99 % Mj Alvarenga MD Work Phone: [employer] 07-23-2021 09:04-0500 Systolic blood pressure 151 mm[Hg] Mj Alvarenga MD Work Phone: [employer] 04-10-2020 16:39-0500 BMI (Body Mass Index) 33.25 kg/m2 [facility] 04-10-2020 16:39-0500 Body weight 79.83 kg Vladimir MartínezClash [employer] [facility] 04-10-2020 16:39-0500 BP Diastolic 76 mm[Hg] Vladimir Greco AlemanCl[employer] [facility] 04-10-2020 16:39-0500 BP Systolic 130 mm[Hg] Vladimir Greco AlemanCl[employer] [facility] 04-10-2020 16:39-0500 BSA (Body Surface Area) 1.85 m2 Vladimir FANCRUncClash Media [employer] [facility] 04-10-2020 16:39-0500 Height 154.94 cm Vladimir FANCRUncClash Media [employer] [facility] 04-10-2020 16:39-0500 Pulse (Heart Rate) 88 /min Vladimir Aircraft Logsmclaren oaklandOnavo Aleman Dee Dee polo [employer] [facility] 01-09-2020 16:05-0400 BMI (Body Mass Index) 33.82 kg/m2 Vladimir FANCRUnchard [employer] [facility] 01-09-2020 16:05-0400 Body Temperature 98.4 [degF] Vladimir Aircraft LogskelbyOnavo Aleman Phillips [employer] [facility] 01-09-2020 16:05-0400 Body weight 81.19 kg Vladimir Greco AlemanClash [employer] [facility] 01-09-2020 16:05-0400 BP Diastolic 62 mm[Hg] Vladimir FANCRUncClash [employer] [facility] 01-09-2020 16:05-0400 BP Systolic 114 mm[Hg] [employer] LLC[employer] [facility] 01-09-2020 16:05-0400 BSA (Body Surface Area) 1.87 m2 [employer] [facility] 01-09-2020 16:05-0400 Height 154.94 cm Vladimir [employer] 01-09-2020 16:05-0400 Pulse (Heart Rate) 76 /min Vladimir Aleman [employer] 07-11-2019 16:08-0500 BMI (Body Mass Index) 35.01 kg/m2 Vladimir [employer] 07-11-2019 16:08-0500 Body Temperature 98.7 [degF] [employer] 07-11-2019 16:08-0500 Body weight 84.06 kg [employer] 07-11-2019 16:08-0500 BP Diastolic 72 mm[Hg] [employer] 07-11-2019 16:08-0500 BP Systolic 126 mm[Hg] [employer] 07-11-2019 16:08-0500 BSA (Body Surface Area) 1.9 m2 Vladimir Bitly 07-11-2019 16:08-0500 Height 154.94 cm [employer] 07-11-2019 16:08-0500 Pulse (Heart Rate) 72 /min Vladimir Chatositykatherine LezamaAleman[employer] 11-29-2018 18:22-0400 BMI (Body Mass Index) 34.39 kg/m2 [employer] 11-29-2018 18:22-0400 Body Temperature 97.9 [degF] [employer] 11-29-2018 18:22-0400 Body weight 82.56 kg [employer] 11-29-2018 18:22-0400 BP Diastolic 70 mm[Hg] Vladimir Aleman [employer] 11-29-2018 18:22-0400 BP Systolic 140 mm[Hg] Vladimir Aleman [employer] 11-29-2018 18:22-0400 BSA (Body Surface Area) 1.88 m2 Vladimir MartínezA[employer]om Education 11-29-2018 18:22-0400 BSA (Body Surface Area) 1.89 m2 Vladimir FANCRUncAxiom Education 11-29-2018 18:22-0400 Height 154.94 cm Vladimir MartínezAxiom Education 11-29-2018 18:22-0400 Pulse (Heart Rate) 80 /min Vladimir sanchezy [employer] 05-31-2018 17:44-0500 BMI (Body Mass Index) 32.94 kg/m2 Vladimir ArshadpocketfungamesncAxiom Education 05-31-2018 17:44-0500 Body Temperature 98.2 [degF] Vladimir Phillips [employer] 05-31-2018 17:44-0500 Body weight 79.07 kg Vladimir Greco AleamnAxiom Education 05-31-2018 17:44-0500 BP Diastolic 68 mm[Hg] Vladimir FANCRUncAxiom Education 05-31-2018 17:44-0500 BP Systolic 118 mm[Hg] Vladimir FANCRUncAxiom Education 05-31-2018 17:44-0500 BSA (Body Surface Area) 1.84 m2 Vladimir FANCRUncAxiom Education 05-31-2018 17:44-0500 Height 154.94 cm Vladimir MartínezAxiom Education 05-31-2018 17:44-0500 Pulse (Heart Rate) 80 /min Vladimir Aleman [employer] 02-01-2018 17:15-0400 BMI (Body Mass Index) 32.31 kg/m2 Vladimir ArshadSpinTheCam 02-01-2018 17:15-0400 Body Temperature 98.5 [degF] [employer] 02-01-2018 17:15-0400 Body weight 77.57 kg Vladimir ChristopherBenjamin's Desk 02-01-2018 17:15-0400 BP Diastolic 88 mm[Hg] Vladimir [employer] 02-01-2018 17:15-0400 BP Systolic 134 mm[Hg] [employer] 02-01-2018 17:15-0400 BSA (Body Surface Area) 1.83 m2 Vladimir ChristopherBenjamin's Desk 02-01-2018 17:15-0400 Height 154.94 cm Vladimir Bitly 02-01-2018 17:15-0400 Pulse (Heart Rate) 76 /min Vladimir Aleman [employer] 07-28-2017 17:14-0500 BMI (Body Mass Index) 32.31 kg/m2 Vladimir Bitly 07-28-2017 17:14-0500 Body Temperature 99.2 [degF] [employer] 07-28-2017 17:14-0500 Body weight 77.57 kg Vladimir ChristopherStonybrook PurificationAlemanA[employer]om Education 07-28-2017 17:14-0500 BP Diastolic 78 mm[Hg] Vladimir FANCRUncAxiom Education 07-28-2017 17:14-0500 BP Systolic 128 mm[Hg] [employer] 07-28-2017 17:14-0500 BSA (Body Surface Area) 1.83 m2 [employer] 07-28-2017 17:14-0500 Height 154.94 cm [employer] 07-28-2017 17:14-0500 Pulse (Heart Rate) 68 /min [employer] Aleman [employer] 11-11-2016 18:39-0400 BMI (Body Mass Index) 34.11 kg/m2 [employer] 11-11-2016 18:39-0400 Body Temperature 98.1 [degF] Vladimir FANCRUncBizerra.rule [employer] 11-11-2016 18:39-0400 Body weight 82.56 kg [employer] 11-11-2016 18:39-0400 BP Diastolic 70 mm[Hg] [employer] 11-11-2016 18:39-0400 BP Systolic 138 mm[Hg] [employer] 11-11-2016 18:39-0400 BSA (Body Surface Area) 1.89 m2 [employer] 11-11-2016 18:39-0400 Height 155.57 cm [employer] 11-11-2016 18:39-0400 Pulse (Heart Rate) 88 /min Vladimir Funez SaludFÁCIL 05-13-2016 18:05-0500 BMI (Body Mass Index) 34.48 kg/m2 Vladimir MartínezAxiom Education 05-13-2016 18:05-0500 Body Temperature 98.4 [degF] Vladimir Aleman [employer] 05-13-2016 18:05-0500 Body weight 83.46 kg Vladimir ChristopherOnavo AlemanAxiom Education 05-13-2016 18:05-0500 BP Diastolic 64 mm[Hg] Vladimir ChristopherOnavo AlemanA[employer]om Education 05-13-2016 18:05-0500 BP Systolic 118 mm[Hg] Vladimir ArshadpocketfungamesncAxiom Education 05-13-2016 18:05-0500 BSA (Body Surface Area) 1.9 m2 Vladimir FANCRUncAxiom Education 05-13-2016 18:05-0500 Height 155.57 cm Vladimir ChristopherStonybrook PurificationAlemanA[employer]om Education 05-13-2016 18:05-0500 Pulse (Heart Rate) 92 /min Vladimir Funez SaludFÁCIL 08-13-2015 18:22-0400 BMI (Body Mass Index) 33.45 kg/m2 Vladimir FANCRUncAxiom Education 08-13-2015 18:22-0400 Body Temperature 98 [degF] Vladimir [employer]iCo AlemanNext [employer] 08-13-2015 18:22-0400 Body weight 80.97 kg Vladimir Bitly 08-13-2015 18:22-0400 BP Diastolic 70 mm[Hg] Vladimir MartínezAxiom Education 08-13-2015 18:22-0400 BP Systolic 124 mm[Hg] Vladimir MartínezAxiom Education 08-13-2015 18:22-0400 BSA (Body Surface Area) 1.87 m2 Vladimir [email or web address] AlemanAxiom Education 08-13-2015 18:22-0400 Height 155.57 cm Vladimir FANCRUncAxiom Education 08-13-2015 18:22-0400 Pulse (Heart Rate) 76 /min Vladimir Chatositykatherine MartínezAlemanLearnVest 11-27-2014 18:35-0400 BMI (Body Mass Index) 33.93 kg/m2 [employer] 11-27-2014 18:35-0400 Body Temperature 97.3 [degF] Vladimir [employer] AlemanNext [employer] Greatness 11-27-2014 18:35-0400 Body weight 83.46 kg Vladimir ArshadpocketfungamesncAxiom Education 11-27-2014 18:35-0400 BP Diastolic 66 mm[Hg] Vladimir FANCRUncAxiom Education 11-27-2014 18:35-0400 BP Systolic 108 mm[Hg] [employer] LLCnc[employer] 11-27-2014 18:35-0400 BSA (Body Surface Area) 1.91 m2 [employer] 11-27-2014 18:35-0400 Height 156.84 cm [employer] LLCnc[employer] 11-27-2014 18:35-0400 Pulse (Heart Rate) 88 /min [employer] 05-29-2014 18:26-0500 BMI (Body Mass Index) 37.61 kg/m2 Vladimir ArshadSpinTheCam 05-29-2014 18:26-0500 Body Temperature 97.5 [degF] [employer] 05-29-2014 18:26-0500 Body weight 92.53 kg Vladimir Bitly 05-29-2014 18:26-0500 BP Diastolic 72 mm[Hg] [employer] 05-29-2014 18:26-0500 BP Systolic 128 mm[Hg] [employer] 05-29-2014 18:26-0500 BSA (Body Surface Area) 2.01 m2 Vladimir Bitly 05-29-2014 18:26-0500 Height 156.84 cm [employer] 05-29-2014 18:26-0500 Pulse (Heart Rate) 66 /min Vladimir GeneriCo AlemanLearnVest 06-12-2013 16:34-0500 BMI (Body Mass Index) 34.02 kg/m2 Vladimir Bitly 06-12-2013 16:34-0500 Body Temperature 98.6 [degF] [employer] 06-12-2013 16:34-0500 Body weight 83.69 kg [employer] 06-12-2013 16:34-0500 BP Diastolic 64 mm[Hg] [employer] 06-12-2013 16:34-0500 BP Systolic 112 mm[Hg] Vladimir FANCRUncAxiom Education 06-12-2013 16:34-0500 BSA (Body Surface Area) 1.91 m2 Vladimir [employer] 06-12-2013 16:34-0500 Height 156.84 cm Vladimir Bitly 06-12-2013 16:34-0500 Pulse (Heart Rate) 76 /min [employer]Bug [employer] 12-12-2012 18:33-0400 BMI (Body Mass Index) 32.4 kg/m2 [employer] 12-12-2012 18:33-0400 Body Temperature 97.6 [degF] Vladimir [employer] 12-12-2012 18:33-0400 Body weight 79.07 kg [employer] 12-12-2012 18:33-0400 BP Diastolic 80 mm[Hg] [employer] 12-12-2012 18:33-0400 BP Systolic 140 mm[Hg] [employer] 12-12-2012 18:33-0400 BSA (Body Surface Area) 1.85 m2 [employer] 12-12-2012 18:33-0400 Height 156.21 cm [employer] 12-12-2012 18:33-0400 Pulse (Heart Rate) 76 /min [employer] Encounters Encounter Date Encounter Type Care Provider Facility Start: 02-14-2025 End: 02-14-2025 Subsequent hospital visit by physician Cooper Eller MD Work Phone: [facility] Comment on above: Mixed incontinence; Suprapubic pain Start: 02-14-2025 ambulatory [facility] Start: 02-13-2025 End: 02-13-2025 ambulatory [facility] Start: 02-13-2025 End: 02-13-2025 [facility] Comment on above: Snoring; Type 2 diabetes mellitus without complication, without long-term current use of insulin (HCC) / Metformin ER; Sleep apnea, unspecified type Start: 02-06-2025 End: 02-06-2025 ambulatory [facility] Start: 02-06-2025 End: 02-06-2025 Subsequent hospital visit by physician Cooper Eller MD Work Phone: [facility] Comment on above: Nocturia; Mixed incontinence Start: 01-03-2025 End: 01-03-2025 Office outpatient visit 15 minutes Jr. Keith Gabriel DO Work Phone: [facility] Comment on above: Left hip pain; Acute pain of left knee; Acute pain of right knee Start: 01-03-2025 End: 01-03-2025 ambulatory KEITH VÁSQUEZ Not Available Start: 01-03-2025 End: 01-03-2025 Charbel Gabriel DO Work Phone: [facility] Start: 01-03-2025 End: 01-03-2025 Bamyuni Gabriel DO Work Phone: [facility] Start: 10-11-2024 End: 10-11-2024 Telephone encounter Anjelica Holland MD Work Phone: [facility] Hepatobiliary[facility] Pancreatic & Endocrine Surgery Start: 09-30-2024 ambulatory [facility] Start: 09-29-2024 End: 10-03-2024 Evaluation and management of inpatient Lisbet Brush MD Work Phone: [facility] ICU Comment on above: Gastrointestinal hem orrhage with melena (Primary Dx); Gastrointestinal hemorrhage, unspecified gastrointestinal hemorrhage type; Acute blood loss anemia; Iron deficiency anemia, unspecified iron deficiency anemia type; Right upper quadrant abdominal pain Start: 09-28-2024 End: 09-29-2024 Evaluation and management of inpatient Cooper Eller MD Work Phone: [facility] ICU Start: 09-20-2024 End: 09-20-2024 ambulatory COOPER RAFIAT Facility:[facility] Start: 09-20-2024 End: 09-20-2024 Subsequent hospital visit by physician Rylie Whipple MD Work Phone: [facility] Comment on above: Liver fibrosis Start: 08-23-2024 End: 08-23-2024 ambulatory Andrae Patino MD Facility:[facility] Start: 08-11-2024 ambulatory COOPER ELLER Facility:[facility] Start: 06-20-2024 End: 06-20-2024 Charbel Gabriel DO [facility] Start: 06-20-2024 End: 06-20-2024 Charbel Gabriel DO [facility] Start: 06-20-2024 End: 06-20-2024 Office outpatient visit 15 minutes Jr. Keith Gabriel DO Work Phone: [facility] Comment on above: Left hip pain (Prima ry Dx); Status post left hip replacement Start: 06-20-2024 End: 06-20-2024 ambulatory KEITH VÁSQUEZ Not Available Start: 04-13-2024 End: 04-13-2024 Office outpatient visit 15 minutes Geri Vergara MD Work Phone: [facility] Comment on above: Cervical spondylosis with myelopathy (Primary Dx) Start: 04-13-2024 End: 04-13-2024 ambulatory UNKNOWN PROVIDER Facility:[facility] Start: 04-13-2024 End: 04-13-2024 Subsequent hospital visit by physician Alexx Op Xray 4 [facility] Comment on above: Cervical spondylosis with myelopathy Start: 03-28-2024 End: 03-28-2024 [facility] Start: 03-28-2024 End: 03-28-2024 Subsequent hospital visit by physician Cooper Eller MD Work Phone: [facility] Comment on above: Nocturia Start: 03-20-2024 End: 03-20-2024 Bamboo flowsheet Jr. Keith Maurice Stepurban DO Work Phone: [facility] Start: 03-20-2024 End: 03-20-2024 Bamboo flowsheet Jr. Keith Maurice Stepanic DO Work Phone: [facility] Start: 03-20-2024 End: 03-20-2024 Postop follow up visit related to original px Jr. Keith Maurice Stepanic DO Work Phone: [facility] Comment on above: Status post left hip replacement (Primary Dx) Start: 03-20-2024 End: 03-20-2024 ambulatory KEITH VÁSQUEZ Not Available Start: 02-22-2024 End: 02-22-2024 Telephone encounter Jr. Keith Gabriel DO Work Phone: [facility] Comment on above: Restrictions Start: 02-02-2024 End: 02-02-2024 Bamboo flowsheet Jr. Keith Maurice Stepurban DO Work Phone: [facility] Start: 02-02-2024 End: 02-02-2024 Bamboo flowsheet Jr. Keith Maurice Stepurban DO Work Phone: [facility] Start: 02-02-2024 End: 02-02-2024 Postop follow up visit related to original px Jr. Keith Maurice Stepanic DO Work Phone: [facility] Comment on above: Status post left hip replacement (Primary Dx); Acute hip pain, left Start: 02-02-2024 End: 02-02-2024 ambulatory KEITH VÁSQUEZ Not Available Start: 01-17-2024 End: 01-19-2024 Telephone encounter Jr. Keith Gabriel DO Work Phone: [facility] Comment on above: Eloquis clarificatio n Start: 12-23-2023 End: 12-27-2023 Evaluation and management of inpatient KEITH GABRIEL Facility:[facility] Start: 11-29-2023 ambulatory [facility] Facility:[facility] Start: 11-29-2023 End: 11-29-2023 Office outpatient visit 40 minutes Lakisha Cordoba MD Work Phone: [facility] Comment on above: Primary biliary chol angitis (Primary Dx); Abnormal LFTs; Splenomegaly; Other abnormal tumor markers Start: 11-29-2023 ambulatory [facility] Facility:[facility] Start: 11-24-2023 End: 11-24-2023 ambulatory [facility] Facility:[facility] Start: 11-09-2023 ambulatory Andrae kirby MD Facility:[facility] Start: 10-19-2023 End: 10-19-2023 ambulatory Andrae Patino MD Facility:[facility] Start: 09-22-2023 End: 09-22-2023 ambulatory Andrae Patino MD Facility:[facility] Start: 09-16-2023 End: 09-16-2023 Office outpatient visit 15 minutes Geri Vergara MD Work Phone: [facility] Comment on above: Cervical spondylosis with myelopathy (Primary Dx); Myelopathy (HCC) Start: 09-16-2023 End: 09-16-2023 Subsequent hospital visit by physician Op Xray 4 [facility] Comment on above: Cervical spondylosis with myelopathy Start: 09-16-2023 End: 09-16-2023 ambulatory UNKNOWN PROVIDER Facility:[facility] Start: 06-17-2023 End: 06-17-2023 Patient encounter procedure Geri Vergara MD Work Phone: [facility] Comment on above: Cervical spondylosis with myelopathy (Primary Dx) Start: 06-17-2023 End: 06-17-2023 Subsequent hospital visit by physician Alexx Op Xray 1 [facility] Comment on above: Cervical spondylosis with myelopathy Start: 06-17-2023 End: 06-17-2023 ambulatory UNKNOWN PROVIDER Facility:[facility] Start: 05-04-2023 Telephone encounter Geri Vergara MD Work Phone: [facility] Comment on above: Health Information Start: 04-22-2023 End: 04-22-2023 Patient encounter procedure Ortho Spine Rn [facility] Comment on above: Hx of cervical spine surgery (Primary Dx) Start: 04-22-2023 End: 04-22-2023 ambulatory UNKNOWN PROVIDER Facility:[facility] Start: 04-09-2023 Telephone encounter Geri Vergara MD Work Phone: [facility] Comment on above: Health Information Start: 03-31-2023 End: 03-31-2023 Subsequent hospital visit by physician Geri Vergara MD Work Phone: [facility] Comment on above: Arrived Start: 03-23-2023 End: 03-23-2023 Patient encounter procedure Deecynthia Mireles E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 Work Phone: [facility] Pre Surgical Evaluation Comment on above: [...] 03-23-2023 End: 03-23-2023 Patient encounter status Dee Funezes E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 Work Phone: [facility] Work Phone: Start: 03-23-2023 End: 03-23-2023 Office outpatient visit 25 minutes Geri Vergara MD Work Phone: [facility] Comment on above: Cervical spondylosis with myelopathy (Primary Dx) Start: 03-23-2023 End: 03-23-2023 Subsequent hospital visit by physician Ip/Op Ct Scan Main 2(Edge) [facility] CT Comment on above: Cervical spondylosis with myelopathy Start: 02-15-2023 Admission to [facility] Geri Vergara MD Work Phone: [facility] Main OR Start: 02-11-2023 End: 02-11-2023 Office outpatient visit 15 minutes Geri Vergara MD Work Phone: [facility] Comment on above: Cervical spondylosis with myelopathy (Primary Dx) Start: 01-30-2023 Letter encounter Geri Vergara MD Work Phone: [facility] Start: 12-24-2022 End: 12-24-2022 Office outpatient visit 15 minutes Geri Vergara MD Work Phone: [facility] Comment on above: Cervical spondylosis with myelopathy (Primary Dx) Start: 11-10-2022 End: 11-11-2022 ambulatory Geri Vergara Facility:[facility] Start: 11-10-2022 End: 11-10-2022 Pain Management Gerry Jerry [facility] Start: 10-29-2022 End: 11-02-2022 Office outpatient visit 15 minutes Geri Vergara MD Work Phone: [facility] Comment on above: Cervical spondylosis with myelopathy (Primary Dx) Start: 10-27-2022 Letter encounter Geri Vergara MD Work Phone: [facility] Start: 10-26-2022 End: 10-26-2022 Orders Only Geri Vergara MD Work Phone: [facility] Comment on above: Myelopathy (HCC) Start: 10-16-2022 End: 10-17-2022 ambulatory Geri Vergara Facility:[facility] Start: 10-16-2022 End: 10-16-2022 Patient encounter procedure Geri Vergara [facility] Start: 09-28-2022 End: 09-29-[address] COOPER ELLER Facility: Start: 09-24-2022 End: 09-24-2022 Subsequent hospital visit by physician [facility] Comment on above: Spinal stenosis of l umbar region, unspecified whether neurogenic claudication present Start: 09-23-2022 Orders Only Geri farias MD Work Phone: [facility] Start: 07-30-2022 End: 07-31-[address] KELLY TIAN . Facility: Start: 07-07-2022 End: 07-07-[address] KELLY TIAN . Facility: Start: 06-25-2022 End: 06-26-[address] KELLY TIAN . Facility: Start: 06-16-2022 End: 06-17-2022 ambulatory Janie Henning Facility:[facility] Start: 06-16-2022 End: 06-16-2022 Patient encounter procedure Janie Henning [facility] Start: 06-09-2022 End: 06-10-2022 ambulatory Geri Vergara Facility:[facility] Start: 06-09-2022 End: 06-09-2022 Patient encounter procedure Geri Vergara [facility] Start: 05-19-2022 End: 05-20-2022 ambulatory Geri Vergara Facility:[facility] Start: 05-19-2022 End: 05-19-2022 Patient encounter procedure Geri Vergara [facility] Start: 05-07-2022 End: 05-08-[address] KELLY TIAN . Facility: Start: 05-01-2022 End: 05-02-2022 ambulatory ANDREW CALLEJAS . Facility:[facility] Start: 04-22-2022 End: 04-22-[address] KELLY TIAN . Facility:[facility] Start: 04-22-2022 End: 04-23-[address] COOPER ELLER Facility:[facility] Start: 03-31-2022 End: 03-31-[address] KELLY TIAN . Facility:[facility] Start: 03-24-2022 End: 03-25-2022 ambulatory Wilver Camden Facility:[facility] Start: 03-18-2022 End: 03-19-[address] KELLY TIAN . Facility:[facility] Start: 03-10-2022 End: 03-11-[address] COOPER ELLER Facility:[facility] Start: 03-03-2022 End: 03-03-[address] KELLY TIAN . Facility:[facility] Start: 02-19-2022 End: 02-20-[address] KELLY TIAN . Facility:[facility] Start: 01-20-2022 End: 01-20-2022 Subsequent hospital visit by physician Cooper Eller MD Work Phone: [facility] Comment on above: Urinary urgency; Frequency of micturition Start: 12-25-2021 End: 12-26-2021 ambulatory Nikko Barbosa Facility:[facility] Start: 11-19-2021 End: 11-20-[address] KELLY TIAN . Facility:[facility] Start: 11-18-2021 End: 11-18-2021 Subsequent hospital visit by physician Cooper Eller MD Work Phone: [facility] Comment on above: Urinary urgency Start: 10-14-2021 End: 10-14-[address] KELLY TIAN . Facility:[facility] Start: 10-09-2021 End: 10-10-[address] KELLY TIAN . Facility:[facility] Start: 08-05-2021 End: 08-05-2021 Subsequent hospital visit by physician Mj Alvarenga MD Work Phone: [facility] OR Start: 07-23-2021 End: 07-27-2021 Patient encounter status Mj Alvarenga MD Work Phone: [facility] PRE ADMIT Start: 07-23-2021 End: 07-27-2021 Subsequent hospital visit by physician Mj Alvarenga MD Work Phone: [facility] Comment on above: [...] hospital visit by physician Madhuri [place] Dr [facility] Rad[facility] Comment on above: Arrived Renal stones Start: 01-06-2019 End: 01-06-2019 Subsequent hospital visit by physician Cooper [facility] Comment on above: Mixed incontinence; OAB (overactive bladder); Frequency of urination; Urgency of urination Start: 11-29-2018 Office outpatient vi sit 15 minutes Vladimir Celestina Greco Other [facility] Start: 05-31-2018 Office outpatient vi sit 15 minutes Vladimir Celestina Heacokatherine Other [facility] Start: 02-01-2018 Office outpatient vi sit 15 minutes Vladimir Celestina Heacokatherine Other [facility] Start: 07-28-2017 Office outpatient vi sit 15 minutes Vladimir L Heacokatherine Other [facility] Start: 12-03-2016 Procedure Vladimir murphy Other [facility] Start: 11-11-2016 Office outpatient vi sit 15 minutes Vladimir Celestina Heacokatherine Other [facility] Start: 05-13-2016 Office outpatient vi sit 15 minutes Vladimir Celestina Heacokatherine Other [facility] Start: 09-26-2015 Procedure Vladimir Christopher ck Other [facility] Start: 08-13-2015 Office outpatient vi sit 15 minutes Vladimir Arshadxiomara Other [facility] Start: 11-27-2014 Office outpatient vi sit 15 minutes Vladimir Arshadxiomara Other [facility] Start: 05-29-2014 Office Services Vladimir Christopher ck Other [facility] Start: 06-12-2013 Office Services Vladimir Christopher ck Other [facility] Start: 12-12-2012 Office Services Vladimir Christopher ck Other [facility] Procedures Date Procedure Procedure Detail Performing Clinician Start: 02-14-2025 Urnls dip stick/tablet reagent auto microscopy Prashant Hernandez ELECTRIC MOTOR ASSEMBLER AND TESTER - BEVELING MACHINE OPERATOR Work Phone: Start: 02-14-2025 Assay of urea nitrogen quantitative Prashant Hernandez ELECTRIC MOTOR ASSEMBLER AND TESTER - BEVELING MACHINE OPERATOR Work Phone: Start: 02-06-2025 Urnls dip stick/tablet reagent auto microscopy Prashant Hernandez ELECTRIC MOTOR ASSEMBLER AND TESTER - BEVELING MACHINE OPERATOR Work Phone: Start: 01-03-2025 End: 01-03-2025 Radex hip unilateral with pelvis 2-3 views Jr. Keith Gabriel DO Work Phone: Start: 10-03-2024 BEDSIDE GLUCOSE Juice [...] Start: 10-02-2024 Assay of magnesium Tj Amin E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 Work Phone: Start: 10-02-2024 Comprehensive metabolic panel Tammy N S chultz PA-C Work Phone: Start: 10-01-2024 Blood count hematocrit Tammy N Sung PA-C Work Phone: Start: 10-01-2024 Blood count hematocrit Tammy N Sung PA-C Work Phone: Start: 10-01-2024 Comprehensive metabolic panel Tammy N S chultz PA-C Work Phone: Start: 09-30-2024 Blood count hematocrit Tammy N Sung PA-C Work Phone: Start: 09-30-2024 Blood count hematocrit Tammy N Sung PA-C Work Phone: Start: 09-30-2024 Comprehensive metabolic panel Tammy N S chultz PA-C Work Phone: Start: 09-30-2024 Calcium ionized Tj Amin E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 Work Phone: Start: 09-30-2024 Adult depression screening assessment Anjelica Holland MD Work Phone: Start: 09-29-2024 Procalcitonin (pct) Tj Amin E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 Work Phone: Start: 09-29-2024 REPEATED ABORMirta Brush MD Work Phone: Start: 09-29-2024 End: 09-29-2024 Antibody screen Juice Melendez MD Work Phone: Comment on above: Performed By: #### TSC #### [facility] ([facility] [address] [place] [address] VIR Start: 09-29-2024 Blood typing serologic abo Tj story E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 Work Phone: Start: 09-29-2024 Comprehensive metabolic panel Tj dean E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 Work Phone: Start: 09-29-2024 BEDSIDE GLUCOSE Lisbet Brush MD Work Phone: Start: 09-29-2024 Hepatobil syst imag inc gb w/pharma intervenj Smita Washington ELECTRIC MOTOR ASSEMBLER AND TESTER - BEVELING MACHINE OPERATOR Work Phone: Start: 09-29-2024 End: 09-29-2024 Transfusion of packed red blood cells Teresa Moss ELECTRIC MOTOR ASSEMBLER AND TESTER - BEVELING MACHINE OPERATOR Work Phone: Start: 09-29-2024 Blood count hemoglobin Cooper Eller MD Work Phone: Start: 09-29-2024 Blood occult peroxidase actv qual feces 1 deter Smita Washington ELECTRIC MOTOR ASSEMBLER AND TESTER - BEVELING MACHINE OPERATOR Work Phone: Start: 09-29-2024 End: 09-29-2024 Transfusion of packed red blood cells Smita Agarwaln ELECTRIC MOTOR ASSEMBLER AND TESTER - BEVELING MACHINE OPERATOR Work Phone: Start: 09-29-2024 End: 09-29-2024 Assay of ammonia Smita Washington ELECTRIC MOTOR ASSEMBLER AND TESTER - BEVELING MACHINE OPERATOR Work Phone: Start: 09-29-2024 End: 09-29-2024 Ecg routine ecg w/least 12 lds w/i&r Teresa Moss ELECTRIC MOTOR ASSEMBLER AND TESTER - BEVELING MACHINE OPERATOR Work Phone: Start: 09-29-2024 GLUCOSE, WHOLE BLOOD Cooper Eller MD Work Phone: Start: 09-28-2024 Urinalysis microscopic only Teresa Moss ELECTRIC MOTOR ASSEMBLER AND TESTER - BEVELING MACHINE OPERATOR Work Phone: Start: 09-28-2024 Urnls dip stick/tablet rgnt auto w/o microscopy Teresa Moss ELECTRIC MOTOR ASSEMBLER AND TESTER - BEVELING MACHINE OPERATOR Work Phone: Start: 09-28-2024 Blood [facility]o [facility] Start: 09-28-2024 Culture bacterial blood aerobic w/id isolates Teresa Moss [facility] Work Phone: Start: 09-28-2024 LACTATE, SEPSIS Teresa Moss [facility] Work Phone: Start: 09-28-2024 Ct thorax w/contrast material Teresa Moss [facility] Work Phone: Start: 09-28-2024 End: 09-29-2024 Ecg routine ecg w/least 12 lds i&r only Teresa Moss [facility] Work Phone: Start: 09-28-2024 Assay of lipase Teresa Moss [facility] Work Phone: Start: 09-28-2024 CULTURE, BLOOD 1 [facility] Work Phone: Start: 09-28-2024 [facility]: Start: 09-20-2024 Glucose measurement, blood Rylie gunter MD Work Phone: Start: 04-13-2024 Radex spine cervical 2 or 3 views Jarek Vergara MD Work Phone: Start: 03-28-2024 Urnls dip stick/tablet reagent auto microscopy Prashant Riaz Giorgio [facility] Work Phone: Start: 02-02-2024 Radex hip [...] 03-23-2023 Blood typing serologic abo Dee willoughby E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 Work Phone: Start: 03-23-2023 Ecg routine ecg w/least 12 lds trcg only w/o i&r To Be Assigned Start: 03-23-2023 Blood typing, ABO, Rho(D) and RBC antibody screening Dee Mireles E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 Work Phone: Start: 03-23-2023 End: 03-23-2023 Thromboplastin time partial plasma/whole blood Dee Mireles E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 Work Phone: Start: 03-23-2023 Ct cervical spine w/o contrast material Geri Vergara MD Work Phone: Start: 10-26-2022 MR NEURO IMAGE IMPORT Geri Vergara MD Work Phone: Start: 09-24-2022 MR NEURO IMAGE IMPORT Geri Vergara MD Work Phone: Start: 01-20-2022 Urnls dip stick/tablet reagent auto microscopy Jed Frye PA-C Work Phone: Start: 12-26-2021 Mammography Jr. Stepanic DO Work Phone: Start: 11-18-2021 Urnls dip stick/tablet reagent auto microscopy Jed Frye PA-C Work Phone: Start: 08-05-2021 Electrical stimulation of bladder Gerry Jerry Start: 07-23-2021 Ecg routine ecg w/least 12 lds i&r only Jed Frye PA-C Work Phone: Start: 07-23-2021 Basic metabolic panel calcium total Jed Frye PA-C Work Phone: Start: 07-23-2021 IMMATURE PLATELET FRACTION Jed arredondo PA-C Work Phone: Start: 10-08-2020 Complete blood count Vladimir arriaga Fannie Start: 10-08-2020 Comprehensive metabolic panel Vladimir bart sanchez Start: 08-13-2020 Colonoscopy Jr. Stepanic DO Work Phone: Start: 07-11-2020 Complete blood count Vladimir Greco Start: 07-11-2020 Comprehensive metabolic panel Vladimir sanchez Start: 04-10-2020 Current Medications Verified MIPS Vladimir Greco Start: 04-10-2020 Doc meds verified w/pt or re Vladimir Arshadac ock Start: 04-01-2020 Complete blood count Vladimir Greco Start: 04-01-2020 Comprehensive metabolic panel Vladimir sanchez Start: 01-09-2020 Complete blood count Vladimir Greco Start: 01-09-2020 Current Medications Verified MIPS Vladimir Greco Start: 01-09-2020 Doc meds verified w/pt or re Vladimir Arshadac ock Start: 01-09-2020 Dual energy X-ray absorptiometry Vladimir Greco Start: 01-02-2020 Complete blood count Vladimir Greco Start: 01-02-2020 Comprehensive metabolic panel Vladimir sanchez Start: 2019 Urnls dip stick/tablet reagent auto microscopy Prashant Hernandez Work Phone: Start: 08-09-2019 Complete blood count Vladimir Greco Start: 08-09-2019 Comprehensive metabolic panel Vladimir sanchez Start: 07-11-2019 Complete blood count Vladimir Greco Start: 07-11-2019 Current Medications Verified MIPS Vladimir Greco Start: 07-11-2019 Doc meds verified w/pt or re Vladimir Heac ock Start: 05-31-2019 Complete blood count Vladimir Greco Start: 05-31-2019 Comprehensive metabolic panel Vladimir sanchez Start: 03-01-2019 Blood count complete auto&auto difrntl wbc Vladimir Greco Start: 03-01-2019 Complete blood count Vladimir rGeco Start: 03-01-2019 Comprehensive metabolic panel Vladimir wilson Start: 02-24-2019 Radiologic exam abdomen 1 view Prashant Hernandez Work Phone: Start: 01-06-2019 Urnls dip stick/tablet reagent auto microscopy Prashant Hernandez Work Phone: Start: 11-29-2018 Current Medications Verified MIPS Vladimir Jeancarlosxiomara Start: 11-29-2018 Doc meds verified w/pt or [...] meds verified w/pt or re Vladimir Mcgrath ocaspen Start: 05-24-2018 Blood count complete auto&auto difrntl [...] Vladimir wilson Start: 11-11-2016 Screening colonoscopy Vladimir Greco Start: 11-04-2016 Blood count complete auto&auto difrntl wbc Vladimir Greco Start: 11-04-2016 Complete blood count Vladimir Greco Start: 11-04-2016 Comprehensive metabolic panel Vladimir wilson Start: 05-13-2016 Colon ca scrn not hi rsk ind Vladimir Jeancarlosrios ock Start: 05-13-2016 Screening colonoscopy Vladimir Greco Start: 02-13-2016 Blood count complete auto&auto difrntl wbc Vladimir Greco Start: 02-13-2016 Complete blood count Vladimir Greco Start: 02-10-2016 Blood count complete auto&auto difrntl wbc Vladimir Greco Start: 02-10-2016 Complete blood count Vladimir Greco Start: 02-10-2016 Comprehensive metabolic panel Vladimir wilson Start: 08-13-2015 Colon ca scrn not hi rsk ind Vladimir Arshadac ock Start: 08-13-2015 Screening colonoscopy Vladimir Greco Start: 05-30-2015 Blood count complete auto&auto difrntl wbc Vladimir Greco Start: 05-30-2015 Complete blood count Vladimir Greco Start: 05-30-2015 Comprehensive metabolic panel Vladimir wilson Start: 05-21-2014 Blood count complete auto&auto difrntl wbc Vladimir Greco Start: 05-21-2014 Complete blood count Vladimir Greco Start: 05-21-2014 Comprehensive metabolic panel Vladimir wilson Complete repair of rotator cuff Geri Vergara Comment on above: [address] [place] [address] Gabriel [address] [facility] [address] Gabriel H/O: hysterectomy Geri lopez Comment on above: [address] [facility] [address] Cervantes History of right tot al knee replacement Geri Vergara Comment on above: 2010 [facility] Dr Gabriel Laboratory test result abnormal Other abnormal tumor markers Lakisha Cordoba MD Work Phone: Plan of Treatment Date Care Activity Detail Author Start: 08-13-2030 Screening for malignant neoplasm of colon [facility] Start: 03-10-2027 Cholesterol [Mass/volume] in Serum or Plasma Cholesterol [facility] Start: 12-24-2026 End: 12-24-2026 Patient encounter procedure 12/24/2026 2:15 PM EDT Office Visit [facility] [address] [place] [id number] Destinee Coughlin, ELECTRIC MOTOR ASSEMBLER AND TESTER - [address] [place], [place] [id number] yearly--last 12/19/2024--Medicare [facility] of [facility] Comment on above: yearly--last 12/19/2024--Medicare Start: 12-03-2026 Colon cancer screen colonoscopy Colon cancer screen colonoscopy [facility] [place], [place] Start: 12-03-2026 Screening for malignant neoplasm of colon [facility] Start: 03-13-2026 Glaucoma screening Diabetic retinal exam [facility] [employer] Start: 02-14-2026 GFR test (Diabetes, CKD 3-4, OR last GFR 15-59) GFR test (Diabetes, CKD 3-4, OR last GFR 15-59) [facility] Start: 02-14-2026 Screening for malignant neoplasm of breast Breast cancer screen [facility] Start: 01-02-2026 End: 01-02-2026 Patient encounter procedure 01/02/2026 2:00 PM EDT Office Visit [facility] [address] [place] [address] Jr. Keith Gabriel, [address] [facility] [address] [place] [address] [facility] Start: 12-12-2025 Depression Screen Depression Screen [email or web address] Start: 10-03-2025 Adult BMI Screening Adult BMI Screening [facility] Start: 10-02-2025 Tobacco Screening Tobacco Screening [facility] Start: 09-30-2025 Depression Screening Depression Screening [facility] Start: 09-29-2025 GFR test (Diabetes, CKD 3-4, OR last GFR 15-59) GFR test (Diabetes, CKD 3-4, OR last GFR 15-59) [facility] Start: 09-29-2025 Screening for malignant neoplasm of colon [facility] Start: 09-26-2025 Hemoglobin A1c measurement A1C test (Diabetic or Prediabetic) [email or web address] Start: 09-26-2025 Lipid panel Lipids [email or web address] Start: 09-26-2025 Urine screening for protein Diabetic Alb to Cr ratio (uACR) test [email or web address] Start: 09-25-2025 COVID-19 Vaccine ( season) COVID-19 Vaccine ( season) [facility] Comment on above: Postponed from 08/25/2024 (Patient Refus ed) Start: 09-25-2025 Depression Screen Depression Screen [email or web address] Start: 09-25-2025 Hepatitis A vaccine (1 of 2 - Risk 2-dose series) Hepatitis A vaccine (1 of 2 - Risk 2-dose series) [email or web address] Comment on above: Postponed from 1968 (Patient Refus ed) Start: 04-11-2025 End: 04-11-2025 Patient encounter procedure 04/11/2025 9:50 AM EST Office Visit Cooper Eller MD [address] [place] [address] [place] [phone] Cooper Eller MD [address] [place] [address], [place] [address] mason Eller MD Comment on above: mason Start: 03-28-2025 Annual Wellness Visit (Medicare) Annual Wellness Visit (Medicare) [facility] Start: 03-24-2025 Annual Wellness Visit (G0439) Annual Wellness Visit (G0439) [facility] Start: 03-24-2025 Depression Screen Depression Screen [facility] Start: 03-15-2025 Hemoglobin A1c measurement A1C test (Diabetic or Prediabetic) [facility] Start: 03-15-2025 Urine screening for protein Urine Protein (microalbumin) [facility] Start: 01-22-2025 Influenza vaccination [facility] Start: 01-03-2025 End: 01-03-2025 Patient encounter procedure 01/03/2025 2:15 PM EDT Office Visit [facility] [address] [place] [phone] Jr. Keith Gabriel, DO [address] [place] [address] Left hip pain [employer] [facility] Comment on above: Left hip pain Start: 12-25-2024 Lipid panel Lipid Profile [facility] Start: 12-19-2024 End: 12-19-2024 Patient encounter procedure 12/19/2024 2:15 PM EDT Office Visit [facility] [address] [place] [address] Destinee Coughlin, WM - JEFFREY[address] [place], [place] [phone] yearly-last PAP 12/15/2022-Medicare [facility] Comment on above: yearly-last PAP 12/15/2022-Medicare Start: 12-14-2024 Diabetic foot examination Diabetic foot exam [facility] Start: 12-13-2024 End: 12-13-2024 Patient encounter procedure 12/13/2024 1:15 PM EDT Office Visit [facility] [address] [place] [address] Jr. Keith Gabriel, 112 [facility] [address] [place] [address] [facility] Start: 12-05-2024 DTaP/Tdap/Td vaccine (1 - Tdap) DTaP/Tdap/Td vaccine (1 - Tdap) [facility] Comment on above: Postponed from 1968 (Patient Refus ed) Start: 11-28-2024 Potassium [Moles/volume] in Serum or Plasma POTASSIUM [facility] Start: 2024 RSV vaccine (adult) (1 - 1-dose 75+ series) RSV vaccine (adult) (1 - 1-dose 75+ series) [facility] Start: 10-17-2024 End: 10-17-2024 Patient encounter procedure 10/17/2024 2:00 PM EDT Office Visit [facility] [address] [facility] [address] [place] [phone] Anjelica Holland MD [address] [facility] [address] [place] [address] [facility] Start: 10-11-2024 End: 10-11-2024 Patient encounter procedure 10/11/2024 2:20 PM EDT Office Visit Cooper Eller MD [address] [place] [address] [place] [address] Cooper Eller MD [address] [facility], [place] [address] 2 week follow up Cooepr Eller MD Comment on above: 2 week follow up Start: 09-25-2024 End: 09-25-2024 Patient encounter procedure 09/25/2024 1:30 PM EDT Office Visit Cooper Eller MD [address] [place] [address] [place] [address] Cooper Eller MD [address] [facility], [place] [address] 6 month f/u Cooper Eller MD Comment on above: 6 month f/u Start: 09-20-2024 Lipid panel Lipids [facility] Start: 09-13-2024 Hemoglobin A1c measurement Hemoglobin A1C [facility] Start: 08-25-2024 COVID-19 Vaccine ( season) COVID-19 Vaccine () [facility] Start: 06-20-2024 End: 06-20-2024 Patient encounter procedure [facility] Comment on above: Arrived Start: 06-01-2024 End: 06-01-2024 Patient encounter procedure 06/01/2024 1:30 PM EST Office Visit [facility] Part [address] [place] [phone] Prashant Hernandez, ELECTRIC MOTOR ASSEMBLER AND TESTER - BEVELING MACHINE OPERATOR [address] [facility] [address] [place] [phone] 8 week f/u/ patient bringing device [facility] Comment on above: 8 week f/u/ patient bringing device Start: 04-12-2024 End: 04-12-2025 XR Cervical spine Lateral Views W flexion and W extension XR C-SPINE FLEX/EXT ONLY 2 VIEWS Imaging Routine Cervical spondylosis with myelopathy Expected: 04/12/2024, Expires: 04/12/2025 [facility] Work Phone: Comment on above: Expected: 04/12/2024, Expires: Start: 04-06-2024 End: 04-06-2024 Patient encounter procedure 04/06/2024 11:00 AM EST Office Visit [facility] [address] [place] [id number] Geri Vergara MD [address] [place] [address] [facility] Start: 03-23-2024 Creatinine measurement [...] Start: 01-23-2024 Influenza vaccination INFLUENZA VACCINE (#1) [facility] Start: 12-27-2023 Screening for malignant neoplasm of breast Breast cancer screen [facility] Start: 12-13-2023 COVID Vaccine Additional Dose (65+ years) COVID Vaccine Additional Dose (65+ years) [facility] Start: 11-29-2023 End: 11-28-2024 [facility] Comment on above: Expected: 11/29/2023 (Approximate), Expi res: 11/28/2024 Start: 09-16-2023 End: 09-16-2023 Patient encounter procedure 09/16/2023 11:15 AM EDT Office Visit [facility] [address] [place], [place] [phone] Geri Vergara MD [address] [place] [address] [facility] Start: 09-15-2023 End: 09-14-2024 XR Cervical spine Lateral Views W flexion and W extension XR C-SPINE FLEX/EXT ONLY 2 VIEWS Imaging Routine Cervical spondylosis with myelopathy Expected: 09/15/2023, Expires: 09/14/2024 [facility] Work Phone: Comment on above: Expected: 09/15/2023, Expires: Start: 06-24-2023 End: 06-24-2023 Patient encounter procedure 06/24/2023 10:45 AM EST Office Visit [facility] [address] [place] [address] Geri Vergara MD [address] [place] [address] [facility] Start: 06-17-2023 End: 06-17-2023 Patient encounter procedure 06/17/2023 10:45 AM EST [facility] [address] [place] [address] Geri Vergara MD [address] [place] [address] [facility] Start: 05-26-2023 Hemoglobin A1c measurement Hemoglobin A1C [facility] Start: 04-22-2023 End: 04-22-2023 Patient encounter procedure [facility] Start: 03-31-2023 End: 03-31-2023 Admission to same day surgery center 03/31/2023 7:30 AM EST - 03/31/2023 10:23 AM EST Surgery [facility] Main OR [address] [place] [address] Geri Vergara MD [address] [place] [address] LAMINOPLASTY, POSTERIOR CERVICAL [facility] Comment on above: LAMINOPLASTY, POSTERIOR CERVICAL Start: 03-31-2023 End: 03-31-2023 LAMINOPLASTY, POSTERIOR CERVICAL LAMINOPLASTY, POSTERIOR CERVICAL Routine scheduled Cervical spondylosis with myelopathy 03/31/2023 7:30 AM EST [facility] Start: 03-31-2023 Subsequent hospital visit by physician [facility] [place] Start: 03-23-2023 End: 03-23-2023 Patient encounter procedure 03/23/2023 10:30 AM EDT Office Visit [facility] Pre Surgical Evaluation [address] [place] [address] Dee Mireles, E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 [address] [place] [address] [place] [address] [facility] Pre Surgical Evaluation Start: 03-23-2023 End: 03-23-2023 Patient encounter procedure [facility] Radiology CT Start: 03-10-2023 GFR test (Diabetes, CKD 3-4, OR last GFR 15-59) GFR test (Diabetes, CKD 3-4, OR last GFR 15-59) [facility] Start: 02-21-2023 Annual Wellness Visit (G0439) Annual Wellness Visit (G0439) [facility] Start: 02-21-2023 Influenza vaccination Influenza Vaccine (#1) [facility] Start: 02-15-2023 End: 02-16-2024 CT Cervical spine WO contrast CT C-SPINE W/O CONTRAST Imaging Within 1 week Cervical spondylosis with myelopathy Expected: 02/15/2023, Expires: 02/16/2024 [facility] Work Phone: Comment on above: Expected: 02/15/2023, Expires: Start: 02-11-2023 End: 02-11-2023 Patient encounter procedure 02/11/2023 10:30 AM EDT Office Visit [facility] [address] [place] [address] Geri Vergara MD [address] [place] [address] [facility] Start: 01-22-2023 COVID-19 Vaccine ( season) COVID-19 Vaccine () [facility] Start: 12-26-2022 Screening for malignant neoplasm of breast [facility] Start: 11-03-2022 End: 11-03-2022 Patient encounter procedure 11/03/2022 Office Visit Obstetrics and Gynecology Destinee Coughlin, WM - RAJIV [address] [facility] [address] [place] [address] [facility] Start: 10-29-2022 ambulatory Ambulatory Facility: Start: 10-29-2022 End: 10-29-2022 Patient encounter procedure 10/29/2022 9:45 AM EDT [facility] [address] [place] [address] Geri Vergara MD [address] [place] [address] [facility] Start: 10-06-2022 End: 10-06-2022 Patient encounter procedure 10/06/2022 Office Visit Orthopedics Geri Vergara MD [address] [place] [address] [facility] Start: 09-23-2022 End: 09-24-2023 DOWNLOAD [employer] IMAGES TO iiyuma DOWNLOAD [employer] IMAGES TO iiyuma Imaging Routine Spinal stenosis of lumbar region, unspecified whether neurogenic claudication present Expected: 09/23/2022, Expires: 09/24/2023 [facility] Work Phone: Comment on above: Expected: 09/23/2022, Expires: Start: 09-17-2022 Depression Screen Depression Screen [facility] Start: 09-17-2022 DTaP/Tdap/Td vaccine (1 - Tdap) DTaP/Tdap/Td vaccine (1 - Tdap) [facility] [employer] [facility] Comment on above: Postponed from 1968 (Patient Refus ed) Start: 07-23-2022 Creatinine measurement Creatinine monitoring [facility] [employer] Start: 07-23-2022 Potassium monitoring Potassium monitoring [facility] Start: 03-24-2022 End: 03-24-2022 Patient encounter procedure 03/24/2022 Office Visit Urology Prashant Hernandez, ELECTRIC MOTOR ASSEMBLER AND TESTER - BEVELING MACHINE OPERATOR [address] [facility] [place] [phone] [facility] Start: 03-18-2022 Depression Screen Depression Screen [facility] Start: 03-17-2022 End: 03-17-2022 Patient encounter procedure 03/17/2022 Office Visit Internal Medicine Cooper Eller MD [address] [facility] [place] [address] Cooper Eller MD Start: 03-13-2022 Annual Wellness Visit (AWV) Annual Wellness Visit (AWV) [facility] Start: 03-12-2022 Diabetic foot examination Diabetic foot exam [facility] Start: 03-04-2022 Hemoglobin A1c measurement A1C test (Diabetic or Prediabetic) [facility] Start: 03-04-2022 Lipid panel [facility] Start: 03-04-2022 Thyroid stimulating hormone measurement TSH testing [facility] Start: 03-04-2022 Urine screening for protein Diabetic microalbuminuria test [facility] Start: 01-22-2022 Influenza vaccination Flu vaccine (#1) [facility] Start: 01-20-2022 End: 01-20-2022 Patient encounter procedure 01/20/2022 Office Visit Urology Prashant Hernandez, ELECTRIC MOTOR ASSEMBLER AND TESTER - BEVELING MACHINE OPERATOR [address] [facility] [address] [place] [phone] [facility] Part [facility] Start: 12-26-2021 Screening for malignant neoplasm of breast MAMMOGRAM SCREENING DISCUSSION [facility] Start: 10-30-2021 End: 10-30-2021 Patient encounter procedure 10/30/2021 Office Visit Obstetrics and Gynecology Destinee Coughlin, ELECTRIC MOTOR ASSEMBLER AND TESTER - CNM [address] [facility] [address] [place] [address] [facility] Part [facility] Start: 09-17-2021 End: 09-17-2021 Patient encounter procedure 09/17/2021 Office Visit Internal Medicine Cooper Eller MD [address] [facility] [place] [address] Cooper Eller MD Start: 09-10-2021 Hepatitis A vaccine (1 of 2 - Risk 2-dose series) Hepatitis A vaccine (1 of 2 - Risk 2-dose series) [facility] Comment on above: Postponed from 1950 (Not Indicated ) Start: 08-28-2021 End: 08-28-2021 Patient encounter procedure 08/28/2021 Office Visit Urology Prashant Hernandez, ELECTRIC MOTOR ASSEMBLER AND TESTER - BEVELING MACHINE OPERATOR [address] [facility] [address] [place] [phone] [facility] Start: 08-13-2021 Screening for malignant neoplasm of colon COLORECTAL CANCER SCREENING DISCUSSION [facility] Start: 08-05-2021 End: 08-05-2021 Admission to same day surgery center 08/05/2021 Surgery IP Unit Mj Alvarenga MD [address] [facility], [address] [place] [address] SACRAL NERVE STIMULATOR IMPLANT--REMOVE INTERSTIM AND LEADS PLACEMENT OF NEW INTERSTIM [facility] Comment on above: SACRAL NERVE STIMULATOR IMPLANT--REMOVE INTERSTIM AND LEADS PLACEMENT OF NEW INTERSTIM Start: 08-05-2021 End: 08-05-2021 Inc impltj neurostimulator eltrd sacral nerve [facility] Start: 08-05-2021 Subsequent hospital visit by physician 08/05/2021 Hospital Encounter IP Unit Mj Alvarenga MD [address] [facility], [address] [place] [address] [facility] Start: 03-31-2021 Diabetic retinal exam Diabetic retinal exam [place] Start: 10-08-2020 Blood count complete auto&auto difrntl wbc CBC w diff [employer] [facility] Start: 10-08-2020 Comprehensive metabolic panel Comp [employer] Start: 08-22-2020 Creatinine measurement Creatinine monitoring [place], [place] Start: 08-22-2020 HbA1c (Bld) [Mass fraction] A1C test (Diabetic or Prediabetic) [place], [place] Start: 08-22-2020 Lipid panel Lipid screen [place] Start: 08-22-2020 Potassium monitoring Potassium monitoring [place] Start: 07-11-2020 Blood count complete auto&auto difrntl wbc [employer] Start: 07-11-2020 Comprehensive metabolic panel [employer] Start: 04-23-2020 End: 04-23-2020 Office Visit 04/23/2020 Office Visit Urology Prashant Hernandez, ELECTRIC MOTOR ASSEMBLER AND TESTER - BEVELING MACHINE OPERATOR [address] [facility] [address] [place] [address] [facility] Start: 04-01-2020 Blood count complete auto&auto difrntl wbc CBC w diff [employer] Start: 04-01-2020 Comprehensive metabolic panel Comp [employer] Start: 03-31-2020 Diabetic retinal exam Diabetic retinal exam [facility] Start: 03-16-2020 Diabetic retinal exam Diabetic retinal exam [place] Start: 03-06-2020 End: 03-06-2020 Office Visit 03/06/2020 Office Visit Internal Medicine Cooper Eller MD [address] [place] [address], [place] [address] Cooper Eller MD Start: 02-25-2020 Annual Wellness Visit (AWV) Annual Wellness Visit (AWV) [place] Start: 02-25-2020 DTaP/Tdap/Td vaccine (1 - Tdap) DTaP/Tdap/Td vaccine (1 - Tdap) [place] Comment on above: Postponed from 1968 (Patient Refus ed) Start: 02-25-2020 Shingles Vaccine (2 of 3) Shingles Vaccine (2 of 3) [place] Comment on above: Postponed from 11/29/2013 (Patient Refus ed) Start: 02-24-2020 Annual Wellness Visit (AWV) Annual Wellness Visit (AWV) [place] Start: 02-18-2020 A1C test (Diabetic or Prediabetic) A1C test (Diabetic or Prediabetic) [place] Start: 02-18-2020 TSH Qn TSH testing [place] Start: 02-18-2020 TSH testing TSH testing [place] Start: 01-09-2020 Blood count complete auto&auto difrntl wbc CBC, PLATELET, DIFFERENTIAL, AUTOMATED [employer] Start: 01-09-2020 Dual energy X-ray photon absorptiometry DEXA bone density study of axial skeleton [employer] Start: 01-02-2020 Blood count complete auto&auto difrntl wbc CBC w diff [employer] Start: 01-02-2020 Comprehensive metabolic panel Comp [place] [facility] [employer] Start: 12-08-2019 Breast cancer screen Breast cancer screen [place], [place] Start: 12-08-2019 Screening for malignant neoplasm of breast Breast cancer screen [place] Start: 10-26-2019 End: 10-26-2019 Office Visit 10/26/2019 Office Visit Obstetrics and Gynecology Destinee Coughlin APRN - CNStephanie [address] [address] [facility] Start: 10-10-2019 End: 10-10-2019 Office Visit 10/10/2019 Office Visit Obstetrics and Gynecology Destinee Coughlin APRN - CNStephanie [address] [place] [phone] [facility] [employer] Start: 08-29-2019 End: 08-29-2019 Office Visit 08/29/2019 Office Visit Internal Medicine Cooper Eller MD [address] [place] [phone] Cooper Eller MD Start: 08-18-2019 A1C test (Diabetic or Prediabetic) A1C test (Diabetic or Prediabetic) [place] Start: 08-18-2019 Creatinine monitoring Creatinine monitoring [place] Start: 08-18-2019 Potassium monitoring Potassium monitoring [place] Start: 08-09-2019 Blood count complete auto&auto difrntl wbc CBC w diff [employer] Start: 08-09-2019 Comprehensive metabolic panel [employer] Start: 07-11-2019 Blood count complete auto&auto difrntl wbc CBC, PLATELET, DIFFERENTIAL, AUTOMATED [employer] Start: 05-31-2019 Blood count complete auto&auto difrntl wbc CBC w diff [employer] Start: 05-31-2019 Comprehensive metabolic panel CMP [employer] Start: 03-10-2019 End: 03-10-2019 Office Visit 03/10/2019 Office Visit Urology Prashant Hernandez, ELECTRIC MOTOR ASSEMBLER AND TESTER - BEVELING MACHINE OPERATOR [address] [facility] [address] [place] [phone] [facility] Start: 03-01-2019 Blood count complete auto&auto difrntl wbc CBC, PLATELET, DIFFERENTIAL, AUTOMATED [employer] Start: 03-01-2019 Comprehensive metabolic panel COMPREHENSIVE METABOLIC PANEL [employer] Start: 02-25-2019 [object Object] Diabetic foot exam [place] Start: 02-25-2019 Diabetic foot examination Diabetic foot exam [place] Start: 02-25-2019 Hepatitis A vaccine (1 of 2 - Risk 2-dose series) Hepatitis A vaccine (1 of 2 - Risk 2-dose series) [place] Comment on above: Postponed from 1950 (Not Indicated ) Start: 02-24-2019 End: 02-24-2019 Office Visit 02/24/2019 Office Visit Internal Medicine Cooper Eller MD [address] [place] [address], [place] [address] Cooper Eller MD Start: 02-18-2019 Lipid screen Lipid screen [place] Start: 01-22-2019 Influenza vaccination Flu vaccine (#1) [place] Start: 11-22-2018 Blood count complete auto&auto difrntl wbc CBC w diff [facility] Start: 11-22-2018 Comprehensive metabolic panel Comp [facility] Start: 08-29-2018 Blood count complete auto&auto difrntl wbc CBC, PLATELET, DIFFERENTIAL, AUTOMATED [facility] Start: 08-29-2018 Comprehensive metabolic panel COMPREHENSIVE METABOLIC PANEL [facility] Start: 08-23-2018 Blood count complete auto&auto difrntl wbc CBC w diff [facility] Start: 08-23-2018 Comprehensive metabolic panel Comp [facility] Start: 08-17-2018 TSH testing TSH testing [place] Start: 06-03-2018 Blood count complete auto&auto difrntl wbc CBC, PLATELET, DIFFERENTIAL, AUTOMATED [facility] Start: 05-24-2018 Blood count complete auto&auto difrntl wbc CBC w diff [facility] Start: 05-24-2018 Comprehensive metabolic panel Comp [facility] Start: 03-25-2016 Diabetic microalbuminuria test Diabetic microalbuminuria test [place] Start: 03-25-2016 Urine screening for protein Diabetic Alb to Cr ratio (uACR) test Kelli Rice [facility] Start: 09-22-2015 Annual wellness visit [id number] Start: 2014 Fall Risk Screening Fall Risk Screening [facility] Start: 2014 Pneumococcal vaccination Pneumococcal Vaccine(s) (65+ yrs) (1 - PCV) [facility] Start: 2014 Screening for osteoporosis Bone [facility] Start: 11-29-2013 Administration of varicella zoster vaccine Zoster (Shingles) Vaccine (2 of 3) [facility] Start: 11-29-2013 Shingles Vaccine (2 of 3) Shingles Vaccine (2 of 3) [facility] Start: 11-29-2013 Zoster vaccine hzv live for subcutaneous use ZOSTER (SHINGLES) VACCINE (2 of 3) [facility] Start: 2012 Annual Wellness Visit (AWV) Annual Wellness Visit (AWV) [place] Start: 2009 Hepatitis B (HBV) Vaccine (optional start 60+ years) Hepatitis B (HBV) Vaccine (optional start 60+ years) [facility] Start: 2009 Hepatitis B vaccination HEP B VACCINE (1 of 3 - Risk 3-dose series) [facility] Start: 2009 RSV vaccine (optional 60+ years) RSV vaccine (optional 60+ years) [facility] Start: 10-21-1999 Shingles (RZV) Vaccine (1 of 2) Shingles (RZV) Vaccine (1 of 2) [facility] Start: 1994 Cholesterol [Mass/volume] in Serum or Plasma Cholesterol [facility] Start: 1994 Screening for malignant neoplasm of colon [facility] Start: 1989 Lipid panel LIPID SCREENING [facility] Start: 1989 Screening for malignant neoplasm of breast [facility] Start: 1970 Screening for malignant neoplasm of cervix CERVICAL CANCER SCREENING DISCUSSION [facility] Start: 1968 DTaP,Tdap and Td Vaccines (1 - Tdap) DTaP,Tdap and Td Vaccines (1 - Tdap) [facility] Start: 1968 DTaP/Tdap/Td vaccine (1 - Tdap) DTaP/Tdap/Td vaccine (1 - Tdap) [facility] Start: 1968 Hepatitis A (HAV) Vaccine (optional start 19+ years) Hepatitis A (HAV) Vaccine (optional start 19+ years) [facility] Start: 1968 Hepatitis A vaccine (1 of 2 - Risk 2-dose series) Hepatitis A vaccine (1 of 2 - Risk 2-dose series) [facility] Start: 1968 Third diphtheria, tetanus and acellular pertussis (DTaP) vaccination TDAP (ADULT) [facility] Start: 10-21-1967 Adult BMI Follow Up Plan Adult BMI Follow Up Plan [facility] Start: 10-21-1967 Hepatitis C screening Hepatitis [...] Hepatitis C screening HEPATITIS C VIRUS SCREENING [facility] Start: 1949 Screening for malignant neoplasm of colon [facility] Start: 1949 Screening for osteoporosis DEXA SCAN DISCUSSION [facility] Start: 1949 Tetanus vaccination TETANUS [facility] Start: 1949 Thyroid stimulating hormone measurement TSH [facility] End: 10-06-2024 CBC W Auto Differential panel - Blood CBC auto differential Lab Routine Daily for 9 Days starting 09/28/2024 until 10/06/2024, 2 completed [facility] Comment on above: Daily for 9 Days starting 09/28/2024 unt il 10/06/2024, 2 completed End: 11-28-2024 CBC,PLATELETS CBC,PLATELETS Lab Routine Primary biliary cholangitis Abnormal LFTs Splenomegaly Every 16 Weeks for 3 Occurrences starting 11/29/2023 until 11/28/2024, 1 completed [facility] Comment on above: Every 16 Weeks for 3 Occurrences startin g 11/29/2023 until 11/28/2024, 1 completed End: 10-07-2024 Comprehensive Metabolic Panel w/ Reflex to MG Comprehensive Metabolic Panel w/ Reflex to MG Lab Routine Daily for 9 Days starting 09/29/2024 until 10/07/2024, 1 completed [facility] Comment on above: Daily for 9 Days starting 09/29/2024 unt il 10/07/2024, 1 completed Culture, Blood 1 Culture, Blood 1 Microbiology STAT 09/28/2024 2:05 PM EDT [facility] Culture, Blood 2 Culture, Blood 2 Microbiology STAT 09/28/2024 4:20 PM EDT [facility] End: 2019 Culture, Urine Culture, Urine Microbiology Routine Mixed incontinence 1 Occurrences starting 2019 until 2019 [employer] [place] Comment on above: 1 Occurrences starting 2019 until 2019 Culture, Urine Culture, Urine Microbiology Routine Mixed incontinence 2019 3:24 PM EDT [employer] [place] End: 11-18-2021 Culture, Urine [employer] Work Phone: Comment on above: 1 Occurrences starting 11/18/2021 until 11/18/2021 End: 01-20-2022 Culture, Urine [employer] Work Phone: Comment on above: 1 Occurrences starting 01/20/2022 until 01/20/2022 End: 03-28-2024 Culture, Urine [employer] Work Phone: Comment on above: 1 Occurrences starting 03/28/2024 until 03/28/2024 End: 02-06-2025 Culture, Urine [facility] Comment on above: 1 Occurrences starting 02/06/2025 until 02/06/2025 End: 02-14-2025 Culture, Urine [employer] Comment on above: 1 Occurrences starting 02/14/2025 until 02/14/2025 End: 04-05-2023 Ecg routine ecg w/least 12 lds trcg only w/o i&r EKG 12 LEAD - PERFORM MUSE Routine Preop testing 1 Occurrences starting 03/22/2023 until 04/05/2023 [facility] Work Phone: Comment on above: 1 Occurrences starting 03/22/2023 until 04/05/2023 EKG 12 lead EKG 12 lead ECG Routine 09/29/2024 3:46 AM EDT [facility] End: 08-05-2021 Fluoroscopy during operation FLUORO FOR SURGICAL PROCEDURES Imaging Routine Once for 1 Occurrences starting 08/05/2021 until 08/05/2021 [employer] Work Phone: Comment on above: Once for 1 Occurrences starting 08/06/19 until 08/05/2021 End: 09-20-2024 GENERAL PROCEDURE GENERAL PROCEDURE Procedures Routine Once for 1 Occurrences starting 09/20/2024 until 09/20/2024 [facility] Work Phone: Comment on above: Once for 1 Occurrences starting 09/21/19 until 09/20/2024 End: 09-29-2024 Glucose [Mass/volume] in Serum or Plasma POCT glucose Point of Care Testing Routine One Time for 1 Occurrences starting 09/29/2024 until 09/29/2024 [facility] Comment on above: One Time for 1 Occurrences starting 01/2025 until 09/29/2024 End: 10-13-2024 Hemoglobin and Hematocrit Hemoglobin and Hematocrit Lab Routine Post Transfusion Post Transfusion Post Transfustion until discontinued starting 09/29/2024 [facility] Comment on above: Post Transfusion Post Transfusion Post T ransfustion until discontinued starting 09/29/2024 End: 11-28-2024 Hepatic function 2000 panel - Serum or Plasma HEPATIC FUNCTION PANEL Lab Routine Primary biliary cholangitis Abnormal LFTs Splenomegaly Every 16 Weeks for 3 Occurrences starting 11/29/2023 until 11/28/2024, 1 completed [facility] Comment on above: Every 16 Weeks for 3 Occurrences startin g 11/29/2023 until 11/28/2024, 1 completed End: 12-07-2023 HEPATIC WEDGE PRESSURE/VENO [facility] Work Phone: Comment on above: One Time for 1 Occurrences starting 11/21 until 12/07/2023 End: 02-13-2025 Home Sleep Study Home Sleep Study [facility] Routine Snoring Type 2 diabetes mellitus without complication, without long-term current use of insulin (HCC) / Metformin ER Sleep apnea, unspecified type 1 Occurrences starting 02/13/2025 until 02/13/2025 [employer] Comment on above: 1 Occurrences starting 02/13/2025 until 02/13/2025 End: 08-05-2021 INITIATE PACU OXYGEN THERAPY PROTOCOL Initiate PACU Oxygen Therapy Protocol Respiratory Care Routine Continuous until discontinued starting 08/05/2021 [employer] Work Phone: Comment on above: Continuous until discontinued starting 0 08/05/2021 LAMINOPLASTY, MANAGER LAN IOR CERVICAL LAMINOPLASTY, POSTERIOR CERVICAL Routine scheduled Cervical spondylosis with myelopathy [facility] Oxygen therapy [Mini mum Data Set] Initiate Oxygen Therapy Protocol Respiratory Care Routine As Needed until discontinued starting 08/05/2021 [employer] Work Phone: Comment on above: As Needed until discontinued starting Oxygen therapy [Mini mum Data Set] Initiate Oxygen Therapy Protocol Respiratory Care Routine Daily until discontinued starting 09/28/2024 [facility] Comment on above: Daily until discontinued starting 2024 End: 09-29-2024 PREPARE RBC (CROSSMATCH), 1 Units PREPARE RBC (CROSSMATCH), 1 Units Blood Bank Routine Once for 1 Occurrences starting 09/29/2024 until 09/29/2024 [facility] Comment on above: Once for 1 Occurrences starting 09/30/19 until 09/29/2024 End: 09-28-2024 PREPARE RBC (CROSSMATCH), 2 Units PREPARE RBC (CROSSMATCH), 2 Units Blood Bank Routine Once for 1 Occurrences starting 09/28/2024 until 09/28/2024 [employer] Comment on above: Once for 1 Occurrences starting 09/29/19 until 09/28/2024 End: 09-20-2024 SURG PATH REQUEST [facility] Work Phone: Comment on above: One Time for 1 Occurrences starting 08/24 until 09/20/2024, 1 completed End: 12-07-2023 TRANSCATHETER BIOPSY [facility] Comment on above: One Time for 1 Occurrences starting 11/21 until 12/07/2023 TYPE AND SCREEN TYPE AND SCREEN Blood Bank Routine 09/28/2024 4:20 PM EDT [facility] End: 01-06-2019 Urine culture clean catch Urine culture clean catch Microbiology Routine Mixed incontinence OAB (overactive bladder) Frequency of urination Urgency of urination 1 Occurrences starting 01/06/2019 until 01/06/2019 [facility] on above: 1 Occurrences starting 01/06/2019 until 01/06/2019 Urine culture clean catch Urine culture clean catch Microbiology Routine Mixed incontinence OAB (overactive bladder) Frequency of urination Urgency of urination 01/06/2019 10:45 AM EDT [facility] [employer] [facility] XR Cervical spine [place] teral Views W flexion and W extension XR C-SPINE FLEX/EXT ONLY 2 VIEWS Imaging Routine Cervical spondylosis with myelopathy 09/16/2023 10:58 AM EDT [facility] XR Cervical spine La teral Views W flexion and W extension XR C-SPINE FLEX/EXT ONLY 2 VIEWS Imaging Routine Cervical spondylosis with myelopathy 04/13/2024 11:45 AM EST [facility] Immunizations Immunization Date Immunization Notes Care Provider [facility] 03-15-2024 Hemoglobin A1C Geri Vergara MD Work Phone: [facility] 02-11-2024 influenza, high dose seasonal, preservative-free Cooper Eller MD Work Phone: [facility] 02-11-2024 influenza virus vaccine, unspecified formulation Anjelica Holland MD Work Phone: [employer] [facility] 02-23-2023 COVID-19, PFIZER, (a ge 12y+), IM, 30mcg/0.3mL Cooper Eller MD Work Phone: [facility] 02-23-2023 RSV, ABRYSVO, (Pregn ant or age 60y+), PF, IM, 0.5mL Cooper Eller MD Work Phone: [facility] 02-02-2023 Influenza, seasonal vaccine, quadrivalent, adjuvanted, 0.5mL dose, preservative free (SMP=760) Geri Vergara MD Work Phone: [facility] 02-02-2023 influenza virus vaccine, unspecified formulation Lakisha Cordoba MD Work Phone: [facility] 11-23-2022 Hemoglobin A1C Dee willoughby [employer]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 Work Phone: [facility] 09-27-2022 COVID-19, PFIZER Bivalent, DO NOT Dilute, (age 12y+), IM, 30 mcg/0.3 mL Cooper Eller MD Work Phone: [facility] 02-01-2022 COVID-19, PFIZER Bivalent, DO NOT Dilute, (age 12y+), IM, 30 mcg/0.3 mL Cooper Eller MD Work Phone: [facility] 02-01-2022 COVID-19, PFIZER PUR PLE top, DILUTE for use, (age 12 y+), 30mcg/0.3mL Cooper Eller MD Work Phone: [facility] 02-01-2022 Influenza, injectabl e, high-dose seasonal, quadrivalent, 0.7 mL, preservative free (XJL=900) [facility] 02-01-2022 influenza virus vaccine, unspecified formulation Geri Vergara MD Work Phone: [facility] 08-27-2021 Pfizer Monovalent (1 2+ yrs) SARS-COV-2 (COVID-19) vaccine, mRNA, spike protein, LNP, pres. free, 30 mcg/0.3mL dose, nabil-sucrose (QNB=820) [facility] 02-15-2021 COVID-19, Pfizer Pur ple top, DILUTE for use, 12+ yrs, 30mcg/0.3mL dose Mj Alvarenga MD Work Phone: [facility] Work Phone: 02-03-2021 Influenza, High-dose , Quadv, 65 yrs +, IM (Fluzone) Mj Alvarenga MD Work Phone: [facility] Work Phone: 07-22-2020 COVID-19, Pfizer Pur ple top, DILUTE for use, 12+ yrs, 30mcg/0.3mL dose Mj Alvarenga MD Work Phone: [facility] Work Phone: 07-01-2020 COVID-19, Pfizer Pur ple top, DILUTE for use, 12+ yrs, 30mcg/0.3mL dose Mj Alvarenga MD Work Phone: [facility] Work Phone: 01-25-2020 influenza virus vaccine, unspecified formulation Mj Alvarenga MD Work Phone: [facility] Work Phone: 01-25-2020 Influenza, High-dose , Quadv, 65 yrs +, IM (Fluzone) Mj Alvarenga MD Work Phone: [facility] 02-14-2019 influenza, high dose seasonal, preservative-free [address], [place] 02-28-2018 influenza, high dose seasonal, preservative-free [facility] 02-28-2018 pneumococcal polysaccharide vaccine, 23 valent [facility] 03-01-2017 Influenza Vaccine, unspecified formulation [address] , [place] 03-01-2017 influenza virus vaccine, unspecified formulation Cooper Eller MD Work Phone: [facility] Work Phone: 02-19-2017 influenza, high dose seasonal, preservative-free [facility] 03-04-2016 Influenza Vaccine, unspecified formulation [address] Work Phone: 03-04-2016 influenza, injectabl e, quadrivalent, preservative free Juice Melendez MD Work Phone: [facility] 03-04-2016 pneumococcal conjuga te vaccine, 13 valent [facility] 03-02-2016 influenza virus vaccine, unspecified formulation [facility] 02-28-2016 Seasonal trivalent influenza vaccine, adjuvanted, preservative free Juice Melendez MD Work Phone: [facility] 05-01-2015 pneumococcal conjuga te vaccine, [address], [place] 03-24-2015 influenza virus vaccine, unspecified formulation Cooper Eller MD Work Phone: [facility] Work Phone: 03-24-2015 seasonal influenza, intradermal, preservative free [address], [place] 03-13-2015 influenza, high dose seasonal, preservative-free [address], [place] 02-26-2014 influenza virus vaccine, unspecified formulation [facility] 10-04-2013 zoster vaccine, live [facility] 10-04-2013 zoster vaccine, unspecified formulation Lakisha Cordoba MD Work Phone: [facility] 02-26-2012 zoster vaccine, live [facility] 03-24-2011 pneumococcal polysaccharide vaccine, 23 valent [facility] 03-25-2009 novel [id number], preservative-free, injectable [facility] Payers Date Payer Category Payer Commercial Indemnity AARP [id number] 2022 Private Health Insurance AARP [id number] 2020 Managed Care (unspecified) [employer]AR [id number] 2020 Unknown [id number]. 1.13.56.2. 7.3.675186.315 2018 Medicare MEDICARE MEDICAR E PART A AND B xxxxxxxxxxx 2018-Present [phone] [address] [address] [place] [address] xxxxxxxxxxx [id number] .[id number] 2018 Private Health Insurance HUMANA HUMANA MEDICARE SUPP xxxxxxxxx 2018-Present [address] [address] [place] [address] xxxxxxxxx [id number] .[id number] 2014 Medicare [id number]. 1.13.56.2. [id number] 2014 Medicare FFS MEDICARE [id number]. [id number] 1959 Medicare [id number] 2.16.840.1.515599.3.441 1959 Private Health Insurance [facility] [id number] 1.2.840.977969.1.13.239.2 .7.3.570521.315 1949 Unknown [id number] 2.16.840.1.204967.3.579.2 .593 1949 Unknown [id number] 2.16.840.1.068548.3.579.2 .593 1949 Unknown [id number] 2.16.840.1.449055.3.579.2 .593 1949 Unknown [id number] 2.16.840.1.812557.3.579.2 .593 1949 Unknown [id number] 2.16.840.1.909326.3.579.2 .593 1949 Unknown [id number] 2.16.840.1.636168.3.579.2 .593 1949 Unknown [id number] 2.16.840.1.914334.3.579.2 .593 1949 Unknown [id number] 2.16.840.1.692704.3.579.2 .59 1949 Unknown [id number] 2.16.840.1.725124.3.579.2 .593 1949 Unknown [id number] 2.16.840.1.626227.3.579.2 .59 1949 Unknown [id number] 2.16.840.1.326952.3.579.2 .593 1949 Unknown [id number] 2.16.840.1.058710.3.579.2 .593 1949 Unknown [id number] 2.16.840.1.917350.3.579.2 .593 1949 Unknown [id number] 2.16.840.1.460617.3.579.2 .593 1949 Unknown [id number] 2.16.840.1.613724.3.579.2 .593 1949 Unknown [id number] 2.16.840.1.932293.3.579.2 .593 1949 Unknown [id number] 2.16.840.1.323556.3.579.2 .593 1949 Unknown [id number] 2.16.840.1.795920.3.579.2 .593 1949 Unknown [id number] 2.16.840.1.356488.3.579.2 .593 1949 Unknown [id number] 2.16.840.1.626933.3.579.2 .727 1949 Unknown [id number] 2.16.840.1.850370.3.579.2 .727 1949 Unknown [id number] 2.16.840.1.509902.3.579.2 .727 1949 Unknown [id number] 2.16.840.1.383251.3.579.2 .727 1949 Unknown [id number] 2.16.840.1.942621.3.579.2 .727 1949 Unknown [id number] 2.16.840.1.126530.3.579.2 .718 1949 Unknown [id number] 2.16.840.1.605265.3.579.2 .718 1949 Unknown [id number] 2.16.840.1.000288.3.579.2 .732 1949 Unknown [id number] 2.16.840.1.470133.3.579.2 .732 1949 Unknown [id number] 2.16.840.1.487155.3.579.2 .732 1949 Unknown [id number] 2.16.840.1.074629.3.579.2 .732 1949 Unknown [id number] 2.16.840.1.302199.3.579.2 .732 1949 Unknown [id number] 2.16.840.1.928012.3.579.2 .732 1949 Unknown [id number] 2.16.840.1.381661.3.579.2 .732 1949 Unknown [id number] 2.16.840.1.836127.3.579.2 .196 1949 Unknown [id number] 2.16.840.1.524694.3.579.2 .196 1949 Unknown [id number] 2.16.840.1.533549.3.579.2 .196 1949 Unknown [id number] 2.16.840.1.749168.3.579.2 .196 1949 Unknown [id number] 2.16.840.1.157720.3.579.2 .594 1949 Unknown [id number] 2.16.840.1.123719.3.579.2 .594 1949 Unknown [id number] 2.16.840.1.908362.3.579.2 .594 1949 Unknown [id number] 2.16.840.1.621859.3.579.2 .594 1949 Unknown [id number] 2.16.840.1.886156.3.579.2 .1286 1949 Unknown [id number] 2.16.840.1.246323.3.579.2 .1286 1949 Unknown [id number] 2.16.840.1.270807.3.579.2 .1286 1949 Unknown [id number] 2.16.840.1.021909.3.579.2 .1286 1949 Unknown [id number] 2.16.840.1.182763.3.579.2 .1259 1949 Unknown [id number] 2.16.840.1.122106.3.579.2 .1259 1949 Unknown [id number] 2.16.840.1.276298.3.579.2 .1259 1949 Unknown [id number] 2.16.840.1.818541.3.579.2 .1259 1949 Unknown [id number] 2.16.840.1.401566.3.579.2 .1259 1949 Unknown [id number] 2.16.840.1.235638.3.579.2 .1259 1949 Unknown [id number] 2.16.840.1.897211.3.579.2 .1259 1949 Unknown [id number] 2.16.840.1.860670.3.579.2 .1259 1949 Unknown [id number] 2.16.840.1.941217.3.579.2 .173 1949 Unknown [id number] 2.16.840.1.059196.3.579.2 .173 1949 Unknown [id number] 2.16.840.1.076731.3.579.2 .173 1949 Unknown [id number] 2.16.840.1.386186.3.579.2 .173 1949 Unknown [id number] 2.16.840.1.551734.3.579.2 .173 1949 Unknown [id number] 2..840.1.805328.3.579.2 .173 Private Health Insurance [id number] 2..840.1.843404.3.441 Unknown [id number] 2..840.1.329532.3.441 Unknown [id number] 2..840.1.644113.3.441 Social History Date Type Detail Facility Start: Denies ETOH use [facility] Start: 01-06-2019 End: 10-01-2023 Former smoker [facility] Start: 05-24-1966 End: 05-24-1974 History of tobacco use Current [place] Start: 05-24-1966 End: 05-24-1974 History of tobacco use [place]ig[place] Start: 01-06-2019 End: 09-28-2024 Cigarettes smoked current (pack per day) - Reported [facility] Start: 01-06-2019 End: 09-28-2024 Alcohol intake No [facility] Start: 03-24-2016 End: 01-20-2022 Tobacco Comment smoked socially on occassion until 1999 [place] Start: 04-07-2016 Alcohol Comment social [place] Start: 1950 Sex Assigned At Not on file [place] Start: 2019 Alcohol intake Current non-drinker of alcohol (finding) [place] Start: 08-29-2019 History SDOH Financial 5 [place] Start: 08-29-2019 End: 03-18-2021 History SDOH Food Worry 1 [place] Start: 08-29-2019 End: 03-18-2021 History SDOH Transport Med 2 [place] Start: 1950 Sex Assigned At [place] Exposure to SARS-CoV -2 (event) Unable to assess [place] Start: 04-03-2015 End: 10-01-2023 Tobacco use and exposure Smokeless tobacco non-user [employer] Phone: Start: 07-23-2021 End: 08-05-2021 Alcohol intake Current drinker of alcohol (finding) [employer] Phone: Start: 03-11-2020 History SDOH Alcohol Std Drinks 98 [employer] Phone: Start: 03-18-2021 History SDOH Social Connections Phone 3 [employer] Phone: Start: 03-18-2021 History SDOH Social Connections Living 7 [employer] Phone: Start: 03-18-2021 History SDOH Physical Activity DPW 0 [employer] Phone: Start: 03-18-2021 History SDOH Financial 4 [employer] Phone: Start: 2021 End: 10-30-2021 Exposure to SARS-CoV-2 (event) Not sure [employer] Phone: Start: 11-18-2021 End: 02-06-2025 Alcohol intake Ex-drinker (finding) [facility] [employer] Phone: Tobacco smoking status No Smokin g Status Entered [facility] Tobacco smoking stat [facility] Tobacco smoking consumption unknown [facility] Start: 10-18-2019 Gender identity Identifies as female gender (finding) [facility] Start: 10-18-2019 Sexual orientation Heterosexual (finding) [facility] Within the last year , have you been afraid of your partner or ex-partner? No [facility] Do you belong to any clubs or organizations such as moravian groups, unions, fraternal or athletic groups, or [...] hav e a drink containing alcohol? Never [facility] [employer] Start: 07-03-2012 End: 09-23-2022 Sex Female (finding) [facility] Medical Equipment Procedure Code Equipment Code Equipment Origin al Text Equipment Identifier Dates Kit Lead Sure Sc an Interstim Mri - [id number] Start: 08-05-2021 Generator Neurostimulator [id number] Thk3in Torq [facility] Prod - [id number] Start: 08-05-2021 Comment on above: Description: PIN# [id number] Plate 7mm In-Tiffanie e Shelf Ea1 1102.3007 - [id number] Start: 03-31-2023 Screw 2.6 X 6mm Self-Drilling Ea1 1102.6006 - [id number] Start: 03-31-2023 Screw 2.6 X 4mm Self-Drilling Ea1 1102.6004 - [id number] Start: 03-31-2023 Goals Date Patient Goal Desired Activity /State Personal health goal Comment on above: Formatting of this n ote might be different from the original. Evaluation of progress towards goal: Plan to return home. Functional Status Date Assessment Result Facility 09-30-2024 Total score [AUDIT-C] 0 10/01/19 25 9:47 AM Kristine Pizarro, [facility] 09-30-2024 Humiliation, Afraid, Rape, and Kick questionnaire [HARK] [facility] 11-10-2022 Functional Status N/A [facility] 06-16-2022 Functional Status N/A [facility] 05-19-2022 Functional Status N/A [facility] Clinical Notes 07-23-2021 to 01-03-2025 Jr. Keith Gabriel, DO - 01/03/2025 2:15 PM EDTTelephone Encounter - Anjelica Holland MD - 10/11/2024 2:41 PM EDTTelephone Encounter - Anjelica Holland MD - 10/11/2024 2:41 PM EDTDischarge Instructions Note Date & Type Note Facility 01-03-2025 History of Present illness Narrative Images from the original note were not included. HISTORY OF PRESENT ILLNESS: EST PT Ashlee Banerjee is an 74 y.o. @ female. (L) HIP (EST PT) - YEARLY RECHECK (L) JESUS (NICKEL FREE) 12/23/23 (~1 YR, 2 WKS) *NEW HOSPITAL ADMISSIONS (X2) ~ 09/28/24 - INTERNAL BLEEDING S/P LIVER BX XRAY TODAY, 01/03/25 IN EPIC XRAYS 02/02/24 IN EPIC NO MDP / PREDNISONE HX ATB FOR UTI 03/2024 - DID NOT HAVE SX'S OF UTI (HX OVERACTIVE BLADDER) S/P PT [facility] (POST-[facility]) PT WOULD LIKE TO KNOW ABOUT TYL 8HR ARTHRITIS REPLACING MOBIC RX ?? PT WOULD LIKE TO KNOW RESTRICTIONS FOR HIP @[facility] DOING WELL. ADMITS ARTHRITIS FLARE UP WITH HOT WEATHER. NOTES PROGRESS WAS ON HOLD DURING HOSPITAL ADMISSION TIME PERIOD. STATES SHE PLANS TO INCREASE WALKING. INTERMITTENT ACHING LATERALLY - DENIES RADIATION. DENIES SWELLING. GOOD ROM. SOME LIMITED STRENGTH / OFF BALANCE AT TIMES. TYL EXTRA STRENGTH PRN - DOES NOT TAKE OFTEN. MOBIC DAILY. DENIES ICING / HEATING. DENIES TOPICALS. (L) KNEE (EST PT) - HERE FOR BIENNAL CHECK OF (L) TKA (NICKEL FREE) 04/22/17 (~7 YRS, 9 MONTHS) XRAY TODAY, 01/03/25 IN EPIC XRAY 03/15/23 IN CHANGE / EPIC NO BONE SCAN NO MDP / PREDNISONE CURRENT AQUATIC THERAPY ; PRE-OP NECK SX FINISHED PHYSICAL THERAPY ; POST-OP PAIN MGMT - DR TIAN S/P (L) KNEE NERVE BLOCK 04/15/21, 03/25/21 - DR TIAN (CURRENTLY SEEING DR COOK) ADMITS ARTHRITIS FLARE UP WITH HOT WEATHER. STATES SHE PLANS TO INCREASE WALKING. DOING WELL. DENIES DISCOMFORT. DENIES SWELLING. GOOD ROM. SOME WEAKNESS. LATERAL NUMBNESS. DENIES TINGLING. DENIES STIFFNESS. TYL EXTRA STRENGTH PRN - DOES NOT TAKE OFTEN. MOBIC DAILY. DENIES ICING / HEATING. DENIES TOPICALS. TYL EXTRA STRENGTH PRN - DOES NOT TAKE OFTEN. MOBIC DAILY. OLD NOTE: DOING WELL. DENIES ANY CURRENT DISCOMFORT - CONTINUES TO HAVE NUMBNESS - LATERAL ASPECT. NOTES GOOD ROM ; SOME OCCASIONAL INTABILITY / WEAKNESS - USES CANE TO AMBULATE. CURRENTLY TAKING NORCO (PAIN MGMT) / MELOXICAM. (R) KNEE - HERE FOR BIENNAL CHECK OF (R) TKA 2010 (~14 YRS) XRAY TODAY, 01/03/25 IN EPIC XRAYS 03/15/23 IN CHANGE / EPIC NO BONE SCAN NO MDP / PREDNISONE CURRENT AQUATIC THERAPY ; PRE-OP NECK SX FINISHED PHYSICAL THERAPY ; POST-OP PAIN MGMT - DR COOK STATES SHE PLANS TO INCREASE WALKING. DOING WELL. DENIES ANY DISCOMFORT. GOOD ROM / STRENGTH. DENIES SWELLING. DENIES N/T. TYL EXTRA STRENGTH PRN - DOES NOT TAKE OFTEN. MOBIC DAILY. DENIES ICING / HEATING. DENIES TOPICALS. ALLERGIES: Allergies Allergen Reactions Morphine Itching Nickel [...] mg, Oral cholecalciferol (Vitamin D-3) 50 MCG (1999) tablet 1 tablet, Oral, Daily RT coenzyme Q-10 (Q-SORB) 100 MG capsule Daily, Refills(s) 0 cycloSPORINE (Restasis) 0.05 % ophthalmic emulsion 1 drop hydroCHLOROthiazide (HYDRODIURIL) 12.5 mg, Oral, Daily levothyroxine (SYNTHROID, LEVOXYL) 100 mcg, Oral, Daily RT meloxicam (MOBIC) 15 mg, Oral, Daily metFORMIN (GLUCOPHAGE) 500 mg, Oral, 2 times daily with meals [place] 3-6-9 Fatty Acids (TRIPLE OMEGA COMPLEX PO) Oral omeprazole (PRILOSEC) 10 mg, Oral, Daily before breakfast, Do not crush or chew. 28-0.8 MG tablet Every 24 hours Probiotic Product (PROBIOTIC BLEND PO) as directed Orally triamcinolone (Nasacort Allergy 24HR) 55 MCG/ACT nasal inhaler Every 24 hours ursodiol (ACTIGALL) 500 mg, Oral, 2 times daily valsartan (DIOVAN) 320 mg, Oral, Daily RT PHYSICAL EXAM: Knee Musculoskeletal Exam Gait Gait is normal. Inspection Leg length disparity: no discrepancy Right Erythema: none Effusion: none Edema: none Ecchymosis: none Deformity: none Alignment: normal Previous incision: anterior Incision: well-healed Left Erythema: none Effusion: none Edema: none Ecchymosis: none Deformity: none Alignment: normal Previous incision: anterior Incision: well-healed Palpation Right Right knee palpation is unremarkable. Increased warmth: none Masses: none Tenderness: none Left Left knee palpation is unremarkable. Increased warmth: none Masses: none Tenderness: none Range of Motion Right Right knee range of motion is normal and full. Active extension: 5 Passive extension: 0 Active flexion: 115 Passive flexion: 115 Left Left knee range of motion is normal and full. Strength Right Right knee strength is normal. Extension: 5/5. Flexion: 5/5. Left Left knee strength is normal. Extension: 5/5. Flexion: 5/5. Instability Right Instability signs: none - stable Varus stress grade: normal Valgus stress grade: normal Left Instability signs: none - stable Varus stress grade: normal Valgus stress grade: normal Neurovascular Right Right knee neurovascular exam is normal. Pulses - PT: normal Posterior tibial: 2+ Capillary refill: warm and well-perfused Left Left knee neurovascular exam is normal. Pulses - PT: normal Posterior tibial: 2+ Capillary refill: warm and well-perfused Special Signs Right Right knee special signs are normal. Left Left knee special signs are normal. General Constitutional: appears stated age Labored breathing: no Psychiatric: normal mood and affect Neurological: alert and oriented x3 Skin: intact Lymphadenopathy: none Hip Musculoskeletal Exam Gait Gait is normal. Inspection Leg length disparity: no discrepancy Left Erythema: none Ecchymosis: none Edema: none Deformity: none Previous incision: anterolateral Incision: well-healed Palpation Left Left hip palpation is normal. Increased warmth: none Tenderness: none Range of Motion Left Left hip range of motion is within functional limits. Active ROM: normal. Passive ROM: normal. Active extension: 40. Passive extension: 40. Active flexion: 120. Passive flexion: 120. Active internal rotation: 45. Passive internal rotation: 45. Active external rotation: 35. Passive external rotation: 35. Active adduction: 30. Passive adduction: 30. Active abduction: 35. Passive abduction: 35. Strength Left Left hip strength is normal. Extension: 5/5. Flexion: 5/5. Internal rotation: 5/5. External rotation: 5/5. Adduction: 5/5. Abduction: 5/5. Neurovascular Right Pulses - PT: normal Posterior tibial: 2+ Left Left hip neurovascular exam is normal. Pulses - PT: normal Posterior tibial: 2+ General Constitutional: appears stated age Labored breathing: no Psychiatric: normal mood and affect Neurological: alert and oriented x3 Skin: intact Lymphadenopathy: none Vitals: There is no height or weight on file to calculate BMI. Tobacco Use: Medium Risk (01/03/2025) Patient History Smoking Tobacco Use: Former Smokeless Tobacco Use: Never Passive Exposure: Not on file Alcohol Use: Not At Risk (09/30/2024) Received from [facility] AUDIT-C Frequency of Alcohol Consumption: Never Average Number of Drinks: Patient does not drink Frequency of Binge Drinking: Never IMAGING: XR hip left 2 or 3 views [...] Impression: Unremarkable left total hip arthroplasty. XR knee 1 or 2 views right Imaging Result: AP and lateral of right [...] dislocation. Impression: Unremarkable right total knee arthroplasty. XR knee 1 or 2 views left Imaging Result: AP and lateral of left [...] dislocation. Impression: Unremarkable left total knee arthroplasty. Procedures Orders Placed This Encounter Procedures XR hip left 2 or 3 views Reason for exam:: Yearly Recheck XR knee 1 or 2 views right Reason for exam:: Follow-up XR knee 1 or 2 views left Reason for exam:: Follow-up ASSESSMENT: ICD-10-CM 1. Left hip pain M25.552 XR hip left 2 or 3 views 2. Acute pain of left knee M25.562 XR knee 1 or 2 views left 3. Acute pain of right knee M25.561 XR knee 1 or 2 views right PLAN: We have discussed her symptoms, physical exam, x-rays of her bilateral knees and left hip today at length. She is glad that she had her joints replaced and is doing very well. We'll see her back in one year to reevaluate her radiographically for her bilateral knee replacements and her left hip replacement. Questions answered in laymen terms at the bedside. The diagnosis, home exercise plan and any ongoing restrictions/ recommendations reviewed. If unable to be reached in office, I recommend evaluation at nearest Emergency Room if any symptoms worsened or new symptoms develop for requiring urgent evaluation. documented in this encounter [facility] 10-11-2024 Miscellaneous Notes I spoke to the [...] will reach out. documented in this encounter [facility] 10-11-2024 Telephone encounter Note I spoke to [...] she or Dr. Eller will reach out. [employer] Phone: 10-03-2024 Hospital course Narrative Inpatient [...] cm on CTA abdomen [facility] pelvis at [facility] 09/28/2024. Transient abdominal pain most likely [...] [facility], GAVE, DM2, HTN, GERD presented to [place] ER with abdominal pain and dark stools was transferred to [facility] for GI evaluation, initially admitted to ICU in view of hypotension once stabilized was transferred to [facility] as primary on 10/02/2024. 1. Acute upper [...] [facility] Appreciate hepatobiliary follow-up with plans for [...] a recent colonoscopy. - Follow-up with primary disability coordinator at [facility] for further management of underlying liver [...] This note was completed using a voice gas scrubber operator system. Every effort was made to ensure accuracy. However, inadvertent computerized gas scrubber operator errors may be present. documented in this encounter [facility] [employer] 10-03-2024 History of Present illness Narrative [facility] Gastroenterology/Hepatology Progress Note [...] she is going to follow-up with her disability coordinator in [place], Dr. Patino.. OBJECTIVE MEDICATIONS SCHEDULED: ferrous sulfate, 325 mg, [...] a recent colonoscopy. - Follow-up with primary disability coordinator at [facility] for further management of underlying liver [...] cirrhosis, GAVE admitted as a transfer from [facility] with GI bleed after presenting with upper abdominal discomfort and recent melena. At [facility] she was hypotensive requiring vasopressors. 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 at [facility] Continue ursodiol Noted plans for discharge today Discussed w/ attending physician ALEXANDER Trammell [address] [address] PH: [phone] ALEXANDER Sosa 10/03/24 8199 Principal Problem: GI bleed Chief Complaint: 1 bowel movement with dark stools yesterday ASSESSMENT AND PLAN: Patient is a 73-year-old female with known Hx/o primary biliary cirrhosis s/p liver biopsy 09/20/24 at [facility], GAVE, DM2, HTN, GERD presented to [place] ER with abdominal pain and dark stools was transferred to [facility] for GI evaluation, initially admitted to ICU in view of hypotension once stabilized was transferred to [facility] as primary on 10/02/2024. 1. Acute upper [...] cm on CTA abdomen and pelvis at [facility] 09/28/2024. Appreciate hepatobiliary follow-up with plans [...] This note was completed using a voice gas scrubber operator system. Every effort was made to ensure accuracy. However, inadvertent computerized gas scrubber operator errors may be present. HEPATOBILIARY, PANCREAS & [...] other consulting teams Will follow while inpatient. 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 Patient [...] with her proceeding with EGD tomorrow. [place] [address] PH: [phone] Images from the original note were not included. [facility] Progress Note Name: Ashlee Banerjee Age: 73 y.o. Date: 10/01/24 Length of Stay 2 day(s) ASSESSMENT Acute upper GI bleed, melena Acute blood loss anemia secondary to above, [facility] Primary biliary cirrhosis Recent liver biopsy 09/20/2024 at [facility] History of GAVE Hypovolemic shock, resolved - off vasopressors Right-sided abdominal pain Gallbladder distension with cholelithiasis and sludge CBD 1.3 cm on CTA abdomen and pelvis at [facility] 09/28/2024 Hepatic cirrhosis with postal hypertension [...] *Plan of care discussed with Dr. Tomasz SUNG PA-C [facility] Please feel free to [...] last 3 days Lab Units 10/01/24 0309 09/30/245 09/30/24 1713 09/30/24 0949 [...] from last 7 days Lab Units 10/01/24 0309 09/30/24 0949 09/29/24203109/29/241941 BEDSIDE GLUCOSE mg/dL -- -- -- 143* GLUCOSE mg/dL 125* 203* 119* -- Lines/Drains PICC Triple Lumen 09/29/24 Left (Active) Precautions Standard precautions;Hand hygiene;Gloves 10/01/24299 Lumen 1 White 10/01/24299 Lumen 1 Status Flushed;Blood return noted;Saline locked;Alcohol sponge cap changed 10/01/24299 Lumen 2 Blue 10/01/24299 Lumen 2 Status Flushed;Blood return noted;Saline locked;Alcohol sponge cap changed 10/01/24299 Lumen 3 Comunas 10/01/24299 Lumen 3 Status Infusing;Alcohol sponge cap maintained;Connections checked/tightened 10/01/24299 Site Assessment Clean;Dry;Intact 10/01/24299 Dressing Type Transparent with CHG gel;Occlusive 10/01/24299 Dressing Status Clean;Dry;Intact 10/01/24299 Dressing Intervention Initial dressing 09/29/241944 Line Necessity Peripherally incompatible solution 05/11/25 0300 Line Necessity Reviewed With CC 09/30/242044 Patient Tolerance of Line Care Tolerated well 10/01/24 0300 Dressing Change Due (Non-Gauze) 10/06/24 09/29/24 1945 Tammy Sung PA-C 10/01/24 1015 Attestation signed [...] to above, [facility] Primary biliary cirrhosis Recent liver biopsy 09/20/2024 at [facility] History of GAVE Hypovolemic shock, resolved - off vasopressors Right-sided abdominal pain Gallbladder distension with cholelithiasis and sludge CBD 1.3 cm on CTA abdomen and pelvis at [facility] 09/28/2024 Hepatic cirrhosis with postal hypertension [...] *Plan of care discussed with Dr. Tomasz SUNG PA-C [facility] Please feel free to [...] Standard precautions;Hand hygiene;Gloves 09/30/24 0300 Lumen 1 Comunas 09/30/24 0300 Lumen 1 Status Blood return [...] transfer out of ICU Lisbet Brush MD [facility] Pul[facility] / Critical Care documented in this encounter [facility] 10-03-2024 Progress note Formatting of t [...] - Ginny Moreland RN 10/03/24 9:16 AM [facility] 10-03-2024 Miscellaneous Notes DISCHARGE PLANNING NOTE [...] Description: INTERVENTIONS: 1. Encourage patient or legal food service representative to report early pain and ask [...] per policy 9. Teach patient or legal food service representative interventions for comforting Outcome: Progressing Note: [...] at the bedside 7. Instruct patient/ patient food service representative about use of safety devices 8. Include patient/ patient food service representative in decisions related to safety Outcome: [...] hygiene technique. 7. Identify and instruct patient/patient food service representative in use of appropriate isolation precautions for identified infection/symptoms. 8. Provide and discuss with patient/patient food service representative on educational MDRO sheet. 9. Encourage and monitor nutritional status daily and consult manager of employee relations if indicated. 10. Implement neutropenic guidelines as [...] Score of =/> 25 or indicated by [facility] Assessment Goal: Patient should be free from fall Description: Interventions: 1. [place] to environment 2. Hourly rounds addressing the [...] non-skid footwear 11. Teach patient and patient food service representative to maintain environment for safety and [...] (cane, walker) within reach 19. Request patient food service representative bring adaptive equipment/mobility aids from home or obtain and provide as needed 20. Consult pharmacy regarding effects of med's affecting mobility, cognition, and alternatives 21. Obtain physician order for PT if risk factors associated with mobility are present 22. Obtain physician order for OT as appropriate 23. Utilize diversional activities 24. Educate patient and patient food service representative how to maintain a safe environment during visitation times (notify nurse prior to leaving bedside) 25. Consider appropriateness of medical or non-medical driver 26. Set up voiding schedule as appropriate [...] GI Lab. Nurse Signature Patient/De signated Responsible [employer] SignatureS. Ludin Noland, 10/02/2024 2:57:29 PMThis report has been signed electronically. Problem: Pain Goal: Patient goal is pain score less than 4, able to rest, and participant in treatment plan as appropriate Description: INTERVENTIONS: 1. Encourage patient or legal food service representative to report early pain and ask [...] per policy 9. Teach patient or legal food service representative interventions for comforting Outcome: Progressing Note: [...] at the bedside 7. Instruct patient/ patient food service representative about use of safety devices 8. Include patient/ patient food service representative in decisions related to safety Outcome: [...] hygiene technique. 7. Identify and instruct patient/patient food service representative in use of appropriate isolation precautions for identified infection/symptoms. 8. Provide and discuss with patient/patient food service representative on educational MDRO sheet. 9. Encourage and monitor nutritional status daily and consult manager of employee relations if indicated. 10. Implement neutropenic guidelines as [...] supplement as ordered 13. Collaborate with clinical manager of employee relations 14. Include patient/ patient's food service representative in decisions related to nutrition Outcome: Progressing Note: Evaluation of progress towards goal: Patient is turned every 2 hours and as needed. Skin is clean and dry. Will continue to monitor. Problem: Moderate - High Risk Fall Score Description: [place] Fall Score of =/> 25 or indicated by [facility] Assessment Goal: Patient should be free from fall Description: Interventions: 1. [place] to environment 2. Hourly rounds addressing the [...] non-skid footwear 11. Teach patient and patient food service representative to maintain environment for safety and [...] (cane, walker) within reach 19. Request patient food service representative bring adaptive equipment/mobility aids from home or obtain and provide as needed 20. Consult pharmacy regarding effects of med's affecting mobility, cognition, and alternatives 21. Obtain physician order for PT if risk factors associated with mobility are present 22. Obtain physician order for OT as appropriate 23. Utilize diversional activities 24. Educate patient and patient food service representative how to maintain a safe environment during visitation times (notify nurse prior to leaving bedside) 25. Consider appropriateness of medical or non-medical driver 26. Set up voiding schedule as appropriate [...] Description: INTERVENTIONS: 1. Encourage patient or legal food service representative to report early pain and ask [...] per policy 9. Teach patient or legal food service representative interventions for comforting Outcome: Progressing Note: [...] at the bedside 7. Instruct patient/ patient food service representative about use of safety devices 8. Include patient/ patient food service representative in decisions related to safety Outcome: [...] hygiene technique. 7. Identify and instruct patient/patient food service representative in use of appropriate isolation precautions for identified infection/symptoms. 8. Provide and discuss with patient/patient food service representative on educational MDRO sheet. 9. Encourage and monitor nutritional status daily and consult manager of employee relations if indicated. 10. Implement neutropenic guidelines as needed. Outcome: Progressing Note: Evaluation of progress towards goal: pt will show no signs or symptoms of infection prior to discharge. Any unneccessary invasive lines and tubes will be removed if not medically necessary to decrease infection risk. Problem: Knowledge Deficit Goal: Patient/patient food service representative demonstrates understanding of disease process, treatment [...] blood products/factors as ordered and appropriate 4. [place] and maintain bleeding precautions Outcome: Progressing Note: Evaluation of progress towards goal: Pt's H+H being monitored at least Q6H, remains stable at this time, no evidence of bleeding noted. Problem: Pain Goal: Patient goal is pain score less than 4, able to rest, and participant in treatment plan as appropriate Description: INTERVENTIONS: 1. Encourage patient or legal food service representative to report early pain and ask [...] per policy 9. Teach patient or legal food service representative interventions for comforting Outcome: Progressing Note: [...] at the bedside 7. Instruct patient/ patient food service representative about use of safety devices 8. Include patient/ patient food service representative in decisions related to safety Outcome: [...] hygiene technique. 7. Identify and instruct patient/patient food service representative in use of appropriate isolation precautions for identified infection/symptoms. 8. Provide and discuss with patient/patient food service representative on educational MDRO sheet. 9. Encourage and monitor nutritional status daily and consult manager of employee relations if indicated. 10. Implement neutropenic guidelines as needed. Outcome: Progressing Note: Evaluation of progress towards goal: patient temperature remains within limits, antibiotics given when indicated, hygiene maintained. Problem: Knowledge Deficit Goal: Patient/patient food service representative demonstrates understanding of disease process, treatment [...] currently in the MICU for critical care. [facility] CRITICAL [facility] TRANSFER NOTE Name: Ashlee Banerjee [...] Description: INTERVENTIONS: 1. Encourage patient or legal food service representative to report early pain and ask [...] per policy 9. Teach patient or legal food service representative interventions for comforting Outcome: Progressing Note: [...] at the bedside 7. Instruct patient/ patient food service representative about use of safety devices 8. Include patient/ patient food service representative in decisions related to safety Outcome: [...] hygiene technique. 7. Identify and instruct patient/patient food service representative in use of appropriate isolation precautions for identified infection/symptoms. 8. Provide and discuss with patient/patient food service representative on educational MDRO sheet. 9. Encourage and monitor nutritional status daily and consult manager of employee relations if indicated. 10. Implement neutropenic guidelines as needed. Outcome: Progressing Note: Evaluation of progress towards goal: No new s/s of infection. Problem: Knowledge Deficit Goal: Patient/patient food service representative demonstrates understanding of disease process, treatment [...] supplement as ordered 13. Collaborate with clinical manager of employee relations 14. Include patient/ patient's food service representative in decisions related to nutrition Outcome: [...] be free from fall Description: Interventions: 1. [place] to environment 2. Hourly rounds addressing the [...] non-skid footwear 11. Teach patient and patient food service representative to maintain environment for safety and [...] (cane, walker) within reach 19. Request patient food service representative bring adaptive equipment/mobility aids from home or obtain and provide as needed 20. Consult pharmacy regarding effects of med's affecting mobility, cognition, and alternatives 21. Obtain physician order for PT if risk factors associated with mobility are present 22. Obtain physician order for OT as appropriate 23. Utilize diversional activities 24. Educate patient and patient food service representative how to maintain a safe environment during visitation times (notify nurse prior to leaving bedside) 25. Consider appropriateness of medical or non-medical driver 26. Set up voiding schedule as appropriate [...] care as appropriate 6. Collaborate with case management/clinical social worker for discharge needs Outcome: Progressing Note: Evaluation [...] hydration as ordered 5. Instruct patient/ legal food service representative on nutrition/diet; fluid/hydration restrictions as appropriate Outcome: Progressing Note: Evaluation of progress towards goal: Monitor e-lytes and replace per protocol Problem: Hematologic - Adult Goal: Maintains hematologic stability Description: INTERVENTIONS 1. Assess for signs and symptoms of bleeding or hemorrhage 2. Monitor labs as ordered 3. Administer supportive blood products/factors as ordered and appropriate 4. [place] and maintain bleeding precautions Outcome: Progressing Note: Evaluation of progress towards goal: No s/s of bleeding, q8h H&H checks. Hgb remains stable. [facility] Name: Ashlee Banerjee Date: 09/30/2024 Admit Date: 09/29/2024 Patient to be transferred out of the ICU. Sign-out has been called to Dr. Jackson at 3:19 PM. Critical Care will sign off at time of transfer out of ICU. Please call Critical Care GRICELDA at if there any questions. Thank you. LISBET BURSH MD Problem: Pain Goal: Patient goal is pain score less than 4, able to rest, and participant in treatment plan as appropriate Description: INTERVENTIONS: 1. Encourage patient or legal food service representative to report early pain and ask [...] per policy 9. Teach patient or legal food service representative interventions for comforting 09/30/2024 105 by [...] at the bedside 7. Instruct patient/ patient food service representative about use of safety devices 8. Include patient/ patient food service representative in decisions related to safety 09/30/2024 [...] hygiene technique. 7. Identify and instruct patient/patient food service representative in use of appropriate isolation precautions for identified infection/symptoms. 8. Provide and discuss with patient/patient food service representative on educational MDRO sheet. 9. Encourage and monitor nutritional status daily and consult manager of employee relations if indicated. 10. Implement neutropenic guidelines as needed. 09/30/2024 105 by AURORA Diaz Outcome: Progressing Note: Evaluation of progress towards goal: No active infections 09/30/20241034 by AURORA Diaz Outcome: Progressing Note: Evaluation of progress towards goal: Patient afebrile; vitals stable; antibiotic therapy continues Problem: Knowledge Deficit Goal: Patient/patient food service representative demonstrates understanding of disease process, treatment plan, medications, and discharge instructions Description: INTERVENTIONS 1. Complete learning assessment and assess knowledge base 2. Provide teaching at level of understanding 3. Provide teaching via preferred learning method(s) 09/30/2024 105 by AURORA Diaz Outcome: Progressing [...] Arrange for needed discharge transportation as appropriate 09/30/2024 105 by AURORA Diaz Outcome: Progressing [...] supplement as ordered 13. Collaborate with clinical manager of employee relations 14. Include patient/ patient's food service representative in decisions related to nutrition 09/30/2024 [...] Score of =/> 25 or indicated by [facility] Assessment Goal: Patient should be free from fall Description: Interventions: 1. [place] to environment 2. Hourly rounds addressing the [...] non-skid footwear 11. Teach patient and patient food service representative to maintain environment for safety and [...] (cane, walker) within reach 19. Request patient food service representative bring adaptive equipment/mobility aids from home or obtain and provide as needed 20. Consult pharmacy regarding effects of med's affecting mobility, cognition, and alternatives 21. Obtain physician order for PT if risk factors associated with mobility are present 22. Obtain physician order for OT as appropriate 23. Utilize diversional activities 24. Educate patient and patient food service representative how to maintain a safe environment during visitation times (notify nurse prior to leaving bedside) 25. Consider appropriateness of medical or non-medical driver 26. Set up voiding schedule as appropriate [...] care as appropriate 6. Collaborate with case management/clinical social worker for discharge needs 09/30/2024 1052 by AURORA Diaz Outcome: Progressing Note: Evaluation of progress towards goal: 09/30/2024 1035 by AURORA Diaz Outcome: Progressing Note: Evaluation of progress towards goal: Problem: Pain Goal: Patient goal is pain score less than 4, able to rest, and participant in treatment plan as appropriate Description: INTERVENTIONS: 1. Encourage patient or legal food service representative to report early pain and ask [...] per policy 9. Teach patient or legal food service representative interventions for comforting 09/30/2024 0545 by [...] at the bedside 7. Instruct patient/ patient food service representative about use of safety devices 8. Include patient/ patient food service representative in decisions related to safety 09/30/2024 0545 by AURORA Britton Outcome: Progressing Note: Evaluation of progress towards goal: Patient safety maintained; remains free from falls/injuries 09/30/20246 by AURORA Britton Outcome: Progressing Note: Evaluation [...] hygiene technique. 7. Identify and instruct patient/patient food service representative in use of appropriate isolation precautions for identified infection/symptoms. 8. Provide and discuss with patient/patient food service representative on educational MDRO sheet. 9. Encourage and monitor nutritional status daily and consult manager of employee relations if indicated. 10. Implement neutropenic guidelines as needed. 09/30/2024 0545 by AURORA Britton Outcome: Progressing Note: Evaluation of progress towards goal: Infection safety policies applied to patient's care while monitoring s/s, labs, and vitals for any indications of infection. 09/30/2024 0506 by AURORA Britton Outcome: Progressing Note: Evaluation of progress towards goal: Problem: Knowledge Deficit Goal: Patient/patient food service representative demonstrates understanding of disease process, treatment [...] at this time documented in this encounter [employer] 10-03-2024 Progress note Formatting of t his [...] - Nadya Pickens RN 10/03/24 8:24 AM [facility] 10-03-2024 Plan of care note Problem: Pain Goal: Patient goal is pain score less than 4, able to rest, and participant in treatment plan as appropriate Description: INTERVENTIONS: 1. Encourage patient or legal food service representative to report early pain and ask [...] per policy 9. Teach patient or legal food service representative interventions for comforting Outcome: Progressing Note: [...] at the bedside 7. Instruct patient/ patient food service representative about use of safety devices 8. Include patient/ patient food service representative in decisions related to safety Outcome: [...] hygiene technique. 7. Identify and instruct patient/patient food service representative in use of appropriate isolation precautions for identified infection/symptoms. 8. Provide and discuss with patient/patient food service representative on educational MDRO sheet. 9. Encourage and monitor nutritional status daily and consult manager of employee relations if indicated. 10. Implement neutropenic guidelines as [...] Score of =/> 25 or indicated by [facility] Assessment Goal: Patient should be free from fall Description: Interventions: 1. [place] to environment 2. Hourly rounds addressing the [...] non-skid footwear 11. Teach patient and patient food service representative to maintain environment for safety and [...] (cane, walker) within reach 19. Request patient food service representative bring adaptive equipment/mobility aids from home or obtain and provide as needed 20. Consult pharmacy regarding effects of med's affecting mobility, cognition, and alternatives 21. Obtain physician order for PT if risk factors associated with mobility are present 22. Obtain physician order for OT as appropriate 23. Utilize diversional activities 24. Educate patient and patient food service representative how to maintain a safe environment during visitation times (notify nurse prior to leaving bedside) 25. Consider appropriateness of medical or non-medical driver 26. Set up voiding schedule as appropriate (every 2 hours) Outcome: Progressing Note: Evaluation of progress towards goal: Pt. Remained free of falls this shift. [facility] 10-02-2024 Note [facility] Patient Name: Ashlee Banerjee Procedure Date: 10/02/2024 1:24 PM CSN: [id number] Date of : 1950 Admit Type: Inpatient Age: 73 Room: [place] [address] Gender: Female Note Status: Finalized Attending MD: [...] a recent colonoscopy. - Follow-up with primary disability coordinator at [facility] for further management of underlying liver disease. Procedure Code(s): --- Professional --- 13616, Esophagogastroduodenoscopy, flexible, transoral; diagnostic, including collection of specimen(s) by brushing or washing, when performed (separate procedure) Diagnosis Code(s): --- Professional --- K76.6, Portal hypertension K31.89, Other diseases of stomach and duodenum K92.1, Melena (includes Hematochezia) CPT copyright 2022 [employer]. All rights reserved. The codes documented in this report are preliminary and upon librarian school review may be revised to meet current compliance requirements. Thomas Ridley, 10/02/2024 2:57:29 PM This report has been signed electronically. Number of Addenda: 0 Note Initiated On: 10/02/2024 1:24 PM PM [facility] 10-02-2024 Attending History and physical note HISTORY AND PHYSICAL INTERVAL NOTE: Ashlee Banerjee 1950 [id number] H&P reviewed. The patient was examined and there are no changes to the H&P. 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 Patient [...] proceeding with EGD tomorrow. Anne-Marie Suggs MD [facility] [address] [place], [place] [id number] PH: [phone] [facility] [employer] Work Phone: 10-02-2024 History and physical note HISTORY AND PHYSICAL INTERVAL NOTE: Ashlee Banerjee 1950 [id number] H&P reviewed. The patient was examined and there are no changes to the H&P. 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 Patient [...] proceeding with EGD tomorrow. Anne-Marie Suggs MD [facility] [place] [address] PH: [phone] Images from the original note were not included. CRITICAL CARE HISTORY & PHYSICAL Name: Ashlee Banerjee Date: 09/29/2024 Length of Stay: 0 day(s) Chief Complaint: Upper GIB History of Present Illness: Ashlee Banerjee is a 73 y.o. year-old female who is transferred to us from [facility] for acute upper GIB and need for GI services. Patient has past medical history as listed below, which is significant for primary biliary cirrhosis s/p liver biopsy 4/30/25 and 'watermelon stomach'. Patient was a direct admit at [place] from her doctor's office due to abdominal pain. She states that she has been having intermittent RUQ pain every 2 days or so ever since she had her liver biopsy at [facility]. She also reports that she has noticed dark-colored stools recently. Patient has known history of primary biliary cirrhosis as stated above. She follows with Dr. Patino in [place] as well as with doctors at [facility]. She has had previous EGD in August the patient states did not show varices. While at [place], patient was admitted to the ICU due to hypotension and anemia. She was given 2 units of packed red blood cells and started on norepinephrine. CTA did not show active bleeding, however, did note cholelithiasis and sludge. She was transferred to [facility] for GI services. Currently, vital signs are [...] Past Surgical History: Liver biopsy 09/20/2024 at [facility] Allergies: Morphine Nickel Sulfites Leucine Cyclobenzaprine Penicillins [...] Amin APRN, CNP Acute Care Nurse Practitioner [facility] Critical Care Please feel free to contact me via Patient Touch. CRITICAL CARE TIME: 40 minutes. Non-contiguous time with attending MD, excluding procedures. This patient, with a critical illness, requires constant monitoring and titration of care by a Critical Care Federal Agent or GRICELDA. Failure to do so may result in further organ system failure, imminent deterioration, or . ALEXANDER Rubio 09/29/242032 Cosigned by Hal Linder MD at 09/30/2024 5:21 AM EDT documented in this encounter [facility] 10-02-2024 Note Formatting of this n ote [...] GI Lab. Nurse Signature Patient/De signated Responsible [employer]. Ludin Noland, 10/02/2024 2:57:29 PMThis report has been signed electronically. [facility] 10-02-2024 Plan of care note Problem: Pain Goal: Patient goal is pain score less than 4, able to rest, and participant in treatment plan as appropriate Description: INTERVENTIONS: 1. Encourage patient or legal food service representative to report early pain and ask [...] per policy 9. Teach patient or legal food service representative interventions for comforting Outcome: Progressing Note: [...] at the bedside 7. Instruct patient/ patient food service representative about use of safety devices 8. Include patient/ patient food service representative in decisions related to safety Outcome: [...] hygiene technique. 7. Identify and instruct patient/patient food service representative in use of appropriate isolation precautions for identified infection/symptoms. 8. Provide and discuss with patient/patient food service representative on educational MDRO sheet. 9. Encourage and monitor nutritional status daily and consult manager of employee relations if indicated. 10. Implement neutropenic guidelines as [...] supplement as ordered 13. Collaborate with clinical manager of employee relations 14. Include patient/ patient's food service representative in decisions related to nutrition Outcome: Progressing Note: Evaluation of progress towards goal: Patient is turned every 2 hours and as needed. Skin is clean and dry. Will continue to monitor. Problem: Moderate - High Risk Fall Score Description: [place]ma[place] Fall Score of =/> 25 or indicated by [facility] Assessment Goal: Patient should be free from fall Description: Interventions: 1. [place] to environment 2. Hourly rounds addressing the [...] non-skid footwear 11. Teach patient and patient food service representative to maintain environment for safety and [...] (cane, walker) within reach 19. Request patient food service representative bring adaptive equipment/mobility aids from home or obtain and provide as needed 20. Consult pharmacy regarding effects of med's affecting mobility, cognition, and alternatives 21. Obtain physician order for PT if risk factors associated with mobility are present 22. Obtain physician order for OT as appropriate 23. Utilize diversional activities 24. Educate patient and patient food service representative how to maintain a safe environment during visitation times (notify nurse prior to leaving bedside) 25. Consider appropriateness of medical or non-medical driver 26. Set up voiding schedule as appropriate (every 2 hours) Outcome: Progressing Note: Evaluation of progress towards goal: Patient is oriented to their environment, area is free from hazards, and hourly rounding is done. The bed alarm is on, bed is in lowest position, and call light is in reach. Fall risk armband is on patient. [facility] [employer] [facility] 10-01-2024 Plan of care note Problem: Pain Goal: Patient goal is pain score less than 4, able to rest, and participant in treatment plan as appropriate Description: INTERVENTIONS: 1. Encourage patient or legal food service representative to report early pain and ask [...] per policy 9. Teach patient or legal food service representative interventions for comforting Outcome: Progressing Note: [...] at the bedside 7. Instruct patient/ patient food service representative about use of safety devices 8. Include patient/ patient food service representative in decisions related to safety Outcome: [...] hygiene technique. 7. Identify and instruct patient/patient food service representative in use of appropriate isolation precautions for identified infection/symptoms. 8. Provide and discuss with patient/patient food service representative on educational MDRO sheet. 9. Encourage and monitor nutritional status daily and consult manager of employee relations if indicated. 10. Implement neutropenic guidelines as needed. Outcome: Progressing Note: Evaluation of progress towards goal: pt will show no signs or symptoms of infection prior to discharge. Any unneccessary invasive lines and tubes will be removed if not medically necessary to decrease infection risk. Problem: Knowledge Deficit Goal: Patient/patient food service representative demonstrates understanding of disease process, treatment [...] blood products/factors as ordered and appropriate 4. [place] and maintain bleeding precautions Outcome: Progressing Note: Evaluation of progress towards goal: Pt's H+H being monitored at least Q6H, remains stable at this time, no evidence of bleeding noted. [facility] 10-01-2024 Plan of care note Problem: Pain Goal: Patient goal is pain score less than 4, able to rest, and participant in treatment plan as appropriate Description: INTERVENTIONS: 1. Encourage patient or legal food service representative to report early pain and ask [...] per policy 9. Teach patient or legal food service representative interventions for comforting Outcome: Progressing Note: [...] at the bedside 7. Instruct patient/ patient food service representative about use of safety devices 8. Include patient/ patient food service representative in decisions related to safety Outcome: [...] hygiene technique. 7. Identify and instruct patient/patient food service representative in use of appropriate isolation precautions for identified infection/symptoms. 8. Provide and discuss with patient/patient food service representative on educational MDRO sheet. 9. Encourage and monitor nutritional status daily and consult manager of employee relations if indicated. 10. Implement neutropenic guidelines as needed. Outcome: Progressing Note: Evaluation of progress towards goal: patient temperature remains within limits, antibiotics given when indicated, hygiene maintained. Problem: Knowledge Deficit Goal: Patient/patient food service representative demonstrates understanding of disease process, treatment [...] currently in the MICU for critical care. [facility] 10-01-2024 Progress note Formatting of t his note might be different from the original. [facility] CRITICAL CARE TRANSFER NOTE Name: Ashlee Banerjee [...] questions. Thank you. BEATRICE NIETO PA-C 10/01/24 1218 [employer] Work Phone: 09-30-2024 Plan of care note Problem: Pain Goal: Patient goal is pain score less than 4, able to rest, and participant in treatment plan as appropriate Description: INTERVENTIONS: 1. Encourage patient or legal food service representative to report early pain and ask [...] per policy 9. Teach patient or legal food service representative interventions for comforting Outcome: Progressing Note: [...] at the bedside 7. Instruct patient/ patient food service representative about use of safety devices 8. Include patient/ patient food service representative in decisions related to safety Outcome: [...] hygiene technique. 7. Identify and instruct patient/patient food service representative in use of appropriate isolation precautions for identified infection/symptoms. 8. Provide and discuss with patient/patient food service representative on educational MDRO sheet. 9. Encourage and monitor nutritional status daily and consult manager of employee relations if indicated. 10. Implement neutropenic guidelines as needed. Outcome: Progressing Note: Evaluation of progress towards goal: No new s/s of infection. Problem: Knowledge Deficit Goal: Patient/patient food service representative demonstrates understanding of disease process, treatment [...] supplement as ordered 13. Collaborate with clinical manager of employee relations 14. Include patient/ patient's food service representative in decisions related to nutrition Outcome: [...] be free from fall Description: Interventions: 1. [place] to environment 2. Hourly rounds addressing the [...] non-skid footwear 11. Teach patient and patient food service representative to maintain environment for safety and [...] (cane, walker) within reach 19. Request patient food service representative bring adaptive equipment/mobility aids from home or obtain and provide as needed 20. Consult pharmacy regarding effects of med's affecting mobility, cognition, and alternatives 21. Obtain physician order for PT if risk factors associated with mobility are present 22. Obtain physician order for OT as appropriate 23. Utilize diversional activities 24. Educate patient and patient food service representative how to maintain a safe environment during visitation times (notify nurse prior to leaving bedside) 25. Consider appropriateness of medical or non-medical driver 26. Set up voiding schedule as appropriate [...] care as appropriate 6. Collaborate with case management/clinical social worker for discharge needs Outcome: Progressing Note: Evaluation [...] hydration as ordered 5. Instruct patient/ legal food service representative on nutrition/diet; fluid/hydration restrictions as appropriate Outcome: Progressing Note: Evaluation of progress towards goal: Monitor e-lytes and replace per protocol Problem: Hematologic - Adult Goal: Maintains hematologic stability Description: INTERVENTIONS 1. Assess for signs and symptoms of bleeding or hemorrhage 2. Monitor labs as ordered 3. Administer supportive blood products/factors as ordered and appropriate 4. [place] and maintain bleeding precautions Outcome: Progressing Note: Evaluation of progress towards goal: No s/s of bleeding, q8h H&H checks. Hgb remains stable. [facility] 09-30-2024 Progress note Formatting of t his note might be different from the original. [facility] CRITICAL CARE SIGN-OFF NOTE Name: Ashlee Banerjee Date: 09/30/2024 Admit Date: 09/29/2024 Patient to be transferred out of the ICU. Sign-out has been called to Dr. Jackson at 3:19 PM. Critical Care will sign off at time of transfer out of ICU. Please call Critical Care GRICELDA at if there any questions. Thank you. LISBET BRUSH MD [facility] 09-30-2024 Plan of care note Problem: Pain Goal: Patient goal is pain score less than 4, able to rest, and participant in treatment plan as appropriate Description: INTERVENTIONS: 1. Encourage patient or legal food service representative to report early pain and ask [...] per policy 9. Teach patient or legal food service representative interventions for comforting 09/30/2024 105 by [...] at the bedside 7. Instruct patient/ patient food service representative about use of safety devices 8. Include patient/ patient food service representative in decisions related to safety 09/30/2024 [...] hygiene technique. 7. Identify and instruct patient/patient food service representative in use of appropriate isolation precautions for identified infection/symptoms. 8. Provide and discuss with patient/patient food service representative on educational MDRO sheet. 9. Encourage and monitor nutritional status daily and consult manager of employee relations if indicated. 10. Implement neutropenic guidelines as needed. 09/30/2024 105 by AURORA Diaz Outcome: Progressing Note: Evaluation of progress towards goal: No active infections 09/30/20241034 by AURORA Diaz Outcome: Progressing Note: Evaluation of progress towards goal: Patient afebrile; vitals stable; antibiotic therapy continues Problem: Knowledge Deficit Goal: Patient/patient food service representative demonstrates understanding of disease process, treatment plan, medications, and discharge instructions Description: INTERVENTIONS 1. Complete learning assessment and assess knowledge base 2. Provide teaching at level of understanding 3. Provide teaching via preferred learning method(s) 09/30/2024 105 by AURORA Diaz Outcome: Progressing [...] supplement as ordered 13. Collaborate with clinical manager of employee relations 14. Include patient/ patient's food service representative in decisions related to nutrition 09/30/2024 [...] Score of =/> 25 or indicated by [facility] Assessment Goal: Patient should be free from fall Description: Interventions: 1. [place] to environment 2. Hourly rounds addressing the [...] non-skid footwear 11. Teach patient and patient food service representative to maintain environment for safety and [...] (cane, walker) within reach 19. Request patient food service representative bring adaptive equipment/mobility aids from home or obtain and provide as needed 20. Consult pharmacy regarding effects of med's affecting mobility, cognition, and alternatives 21. Obtain physician order for PT if risk factors associated with mobility are present 22. Obtain physician order for OT as appropriate 23. Utilize diversional activities 24. Educate patient and patient food service representative how to maintain a safe environment during visitation times (notify nurse prior to leaving bedside) 25. Consider appropriateness of medical or non-medical driver 26. Set up voiding schedule as appropriate [...] care as appropriate 6. Collaborate with case management/clinical social worker for discharge needs 09/30/2024 1052 by AURORA Diaz Outcome: Progressing Note: Evaluation of progress towards goal: 09/30/2024 1035 by AURORA Diaz Outcome: Progressing Note: Evaluation of progress towards goal: [facility] 09-30-2024 Consult note Associated Order (s): IP CONSULT TO GASTROENTEROLOGY [facility] Initial Gastroenterology/Hepatology Consultation Note IDENTIFYING DATA PATIENT: Ashlee Banerjee ADMIT DATE: 09/29/2024 TIME OF EVALUATION: 09/30/2024 9:19 AM Reason for Consult: Melena and anemia. HISTORY OF PRESENT ILLNESS Ashlee Banerjee is a 73 y.o. 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 Patient reports that after she had her liver biopsy done on September 20 she noted frequent bowel movement with black stools, she thinks that this happened immediately a day after her liver biopsy. She denied any prior history of melena. She also noted some upper abdominal pain/discomfort. She was evaluated at outside facility in [place] and her hemoglobin was 6.8. She received [...] History: MEDICATIONS Allergies: Allergies Allergen Reactions Cyclobenzaprine Kpotjom-Dipoaxkhbt-Wqajxf-Soy Morphine Nickel Penicillins Sulfites No medications prior [...] biopsy done on September 20, 2024 at [facility] (pathology showed changes compatible with PVC and stage 3-4 fibrosis), history of GAVE on EGD that was performed on the week of August (this is per patient history, this was done at [facility] and no records are available. Patient [...] care of Ashlee Banerjee. [place] [address] PH: [phone] [facility] Consult note Associated Order (s): IP CONSULT TO GASTROENTEROLOGY [facility] Initial Gastroenterology/Hepatology Consultation Note IDENTIFYING DATA PATIENT: Ashlee Banerjee ADMIT DATE: 09/29/2024 TIME OF EVALUATION: 09/30/2024 9:19 AM Reason for Consult: Melena and anemia. HISTORY OF PRESENT ILLNESS Ashlee Banerjee is a 73 y.o. 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 Patient reports that after she had her liver biopsy done on September 20 she noted frequent bowel movement with black stools, she thinks that this happened immediately a day after her liver biopsy. She denied any prior history of melena. She also noted some upper abdominal pain/discomfort. She was evaluated at outside facility in [place] and her hemoglobin was 6.8. She received [...] History: MEDICATIONS Allergies: Allergies Allergen Reactions Cyclobenzaprine Reeklkg-Ogkvclxsbo-Xmvkqs-Soy Morphine Nickel Penicillins Sulfites No medications prior [...] biopsy done on September 20, 2024 at [facility] (pathology showed changes compatible with PVC and stage 3-4 fibrosis), history of GAVE on EGD that was performed on the week of August (this is per patient history, this was done at [facility] and no records are available. Patient [...] care of Ashlee Banerjee. [place] [address] PH: [phone] Associated Order(s): IP CONSULT TO GENERAL SURGERY [...] upper GI bleed, patient was transferred to [facility] for further workup by GI and general [...] history on file. Allergies Allergen Reactions Cyclobenzaprine Thiulmj-Nvkxxwakab-Jassxq-Soy Morphine Nickel Penicillins Sulfites Current Facility-Administered Medications: [...] injection 1 mg, 1 mg, intramuscular, PRNTj APRN-CNP magnesium sulfate IVPB 2000 mg/50 mL in iso-osmotic water (40 mg/mL premix), 2,000 mg, intravenous, PRN OR magnesium sulfate IVPB 4000 mg/100 mL in iso-osmotic water (40 mg/mL premix), 4,000 mg, intravenous, PRN, Tj Amin APRN-SHEILA norepinephrine (LEVOPHED) infusion 8 mg/250 mL in [...] mEq, 20-40 mEq, oral, PRN, Tj Amin, E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 potassium chloride IVPB 10 mEq/50 mL in water (0.2 mEq/mL premix), 10 mEq, intravenous, PRN OR potassium chloride IVPB 10 mEq/100 mL in water (0.1 mEq/mL premix), 10 mEq, intravenous, PRN, Tj Amin, E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 sodium chloride 0.9 % infusion, 10 mL/hr, intravenous, Continuous PRN, Tj Amin, E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 sodium chloride 0.9 % infusion, 10 mL/hr, intravenous, Continuous PRN, Tj Amin, E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 sodium chloride 0.9 % infusion, 10 mL/hr, intravenous, Continuous PRN, Tj Amin, E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 sodium chloride 0.9 % infusion, 75 mL/hr, intravenous, Continuous, Tj Amin APRN-BEVELING MACHINE OPERATOR, Last Rate: 75 mL/hr at 09/30/24 0559, [...] Resource Strain: Medium Risk (04/10/2024) Received from [facility] Overall Financial Resource Strain (CARDIA) Difficulty of Paying Living Expenses: Somewhat hard Food Insecurity: No Food Insecurity (09/28/2024) Received from [facility] Hunger Vital Sign Worried About Running Out of Food in the Last Year: Never true Ran Out of Food in the Last Year: Never true Transportation Needs: No Transportation Needs (09/28/2024) Received from [facility] PRAPARE - Transportation Lack of Transportation (Medical): No Lack of Transportation (Non-Medical): No Physical Activity: Insufficiently Active (04/10/2024) Received from [facility] Exercise Vital Sign Days of Exercise per Week: 3 days Minutes of Exercise per Session: 10 min Stress: Stress Concern Present (04/10/2024) Received from [facility] [place] [facility] Occupational [facility] - Occupational Stress Questionnaire Feeling of Stress : To some extent Social Connections: Moderately Integrated (04/10/2024) Received from [facility] Social Connection and Isolation Panel [NHANES] Frequency of Communication with Friends and Family: More than three times a week Frequency of Social Gatherings with Friends and Family: Twice a week Attends Orthodox Services: 1 to 4 times per year Active Member of Clubs or Organizations: Yes Attends Club or Organization Meetings: More than 4 times per year Marital Status: Never Interpersonal Safety: Patient Declined (04/10/2024) Received from [facility] Humiliation, Afraid, Rape, and Kick questionnaire Fear of Current or Ex-Partner: Patient declined Emotionally Abused: Patient declined Physically Abused: Patient declined Sexually Abused: Patient declined Housing Instability: Low Risk (09/28/2024) Received from [facility] Housing Stability Vital Sign Unable to [...] Given Rate: 0 Route: Intravenous; 12:03 PM 4/30/25 fentaNYL (SUBLIMAZE) injection 0-300 mcg Given 25 [...] medication(s), I spent 33 minutes of continuous vtkh-zl-vbus time with the patient. COMPARISON: No prior [...] wire was advanced into the IVC. A 10-Togolese by 40 cm hemostatic sheath was placed. [...] Given Rate: 0 Route: Intravenous; 12:03 PM 4/30/25 fentaNYL (SUBLIMAZE) injection 0-300 mcg Given 25 [...] medication(s), I spent 33 minutes of continuous xvyu-zd-qzkp time with the patient. COMPARISON: No prior [...] wire was advanced into the IVC. A 10-Togolese by 40 cm hemostatic sheath was placed. [...] plan to follow. documented in this encounter [facility] 09-30-2024 Consult note Associated Order [...] upper GI bleed, patient was transferred to [facility] for further workup by GI and general [...] history on file. Allergies Allergen Reactions Cyclobenzaprine Tykaovr-Ejzymhfoxz-Wlmzde-Soy Morphine Nickel Penicillins Sulfites Current Facility-Administered Medications: calcium gluconate IVPB 1000 mg/50 mL (20 mg/mL premix), 1,000 mg, intravenous, PRN OR calcium gluconate IVPB 2000 mg/100 mL (20 mg/mL premix), 2,000 mg, intravenous, PRN OR calcium gluconate 3,000 mg in sodium chloride 0.9 % 100 mL IVPB, 3,000 mg, intravenous, PRN, Tj Amin APRN-SHEILA dextrose (GLUTOSE) 40 % gel 15 g, 15 g, oral, PRNTj APRN-CNP dextrose 5 % (D5W) infusion, 100 mL/hr, [...] water (40 mg/mL premix), 4,000 mg, intravenous, PRNTj APRN-SHEILA norepinephrine (LEVOPHED) infusion 8 mg/250 mL in sod chlor 0.9% (0.032 mg/mL PMX), 0.01-0.2 mcg/kg/min (Order-Specific), intravenous, Continuous, Tj Amin APRN-SHEILA, Held at 09/29/242014 pantoprazole (PROTONIX) injection 40 mg, 40 mg, intravenous, Q12H, Tj Amin APRN-SHELIA, 40 mg at 09/29/242042 potassium chloride (K-TAB,KLOR-CON) CR tablet 20-40 mEq, 20-40 mEq, oral, PRN OR potassium chloride (KAYCIEL) 20 mEq/15 mL solution 20-40 mEq, 20-40 mEq, oral, PRN, Tj Amin, E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 potassium chloride IVPB 10 mEq/50 mL in water (0.2 mEq/mL premix), 10 mEq, intravenous, PRN OR potassium chloride IVPB 10 mEq/100 mL in water (0.1 mEq/mL premix), 10 mEq, intravenous, PRN, Tj Delaneyer, E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 sodium chloride 0.9 % infusion, 10 mL/hr, intravenous, Continuous PRN, Tj Amin, E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 sodium chloride 0.9 % infusion, 10 mL/hr, intravenous, Continuous PRN, Tj Delaneyer, E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 sodium chloride 0.9 % infusion, 10 mL/hr, intravenous, Continuous PRN, Tj Amin, E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 sodium chloride 0.9 % infusion, 75 mL/hr, intravenous, Continuous, Tj Amin, E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, Last Rate: 75 mL/hr at 09/30/24 0559, [...] Resource Strain: Medium Risk (04/10/2024) Received from [facility] Overall Financial Resource Strain (CARDIA) Difficulty of Paying Living Expenses: Somewhat hard Food Insecurity: No Food Insecurity (09/28/2024) Received from [facility] Hunger Vital Sign Worried About Running Out of Food in the Last Year: Never true Ran Out of Food in the Last Year: Never true Transportation Needs: No Transportation Needs (09/28/2024) Received from [facility] PRAPARE - Transportation Lack of Transportation (Medical): No Lack of Transportation (Non-Medical): No Physical Activity: Insufficiently Active (04/10/2024) Received from [facility] Exercise Vital Sign Days of Exercise per Week: 3 days Minutes of Exercise per Session: 10 min Stress: Stress Concern Present (04/10/2024) Received from [facility] [place] [facility] [employer] [facility] - Occupational Stress Questionnaire Feeling of Stress : To some extent Social Connections: Moderately Integrated (04/10/2024) Received from [facility] Social Connection and Isolation Panel [NHANES] Frequency of Communication with Friends and Family: More than three times a week Frequency of Social Gatherings with Friends and Family: Twice a week Attends Orthodox Services: 1 to 4 times per year Active Member of Clubs or Organizations: Yes Attends Club or Organization Meetings: More than 4 times per year Marital Status: Never Interpersonal Safety: Patient Declined (04/10/2024) Received from [facility] Humiliation, Afraid, Rape, and Kick questionnaire Fear of Current or Ex-Partner: Patient declined Emotionally Abused: Patient declined Physically Abused: Patient declined Sexually Abused: Patient declined Housing Instability: Low Risk (09/28/2024) Received from [facility] Housing Stability Vital Sign Unable to [...] medication(s), I spent 33 minutes of continuous tigl-ka-ekvv time with the patient. COMPARISON: No prior [...] wire was advanced into the IVC. A 10-Togolese by 40 cm hemostatic sheath was placed. [...] medication(s), I spent 33 minutes of continuous ttoc-ac-pitm time with the patient. COMPARISON: No prior [...] wire was advanced into the IVC. A 10-Togolese by 40 cm hemostatic sheath was placed. [...] no active extravasation. Will plan to follow. [employer] Work Phone: 09-30-2024 Plan of care note Problem: Pain Goal: Patient goal is pain score less than 4, able to rest, and participant in treatment plan as appropriate Description: INTERVENTIONS: 1. Encourage patient or legal food service representative to report early pain and ask [...] per policy 9. Teach patient or legal food service representative interventions for comforting 09/30/2024544 by AURORA [...] at the bedside 7. Instruct patient/ patient food service representative about use of safety devices 8. Include patient/ patient food service representative in decisions related to safety 09/30/2024544 [...] hygiene technique. 7. Identify and instruct patient/patient food service representative in use of appropriate isolation precautions for identified infection/symptoms. 8. Provide and discuss with patient/patient food service representative on educational MDRO sheet. 9. Encourage and monitor nutritional status daily and consult manager of employee relations if indicated. 10. Implement neutropenic guidelines as needed. 09/30/2024 0545 by AURORA Britton Outcome: Progressing Note: Evaluation of progress towards goal: Infection safety policies applied to patient's care while monitoring s/s, labs, and vitals for any indications of infection. 09/30/2024 0506 by AURORA Britton Outcome: Progressing Note: Evaluation of progress towards goal: Problem: Knowledge Deficit Goal: Patient/patient food service representative demonstrates understanding of disease process, treatment [...] intact and without issues at this time [facility] 09-29-2024 History and physical note Images from the original note were not included. CRITICAL CARE HISTORY & PHYSICAL Name: Ashlee Banerjee Date: 09/29/2024 Length of Stay: 0 day(s) Chief Complaint: Upper GIB History of Present Illness: Ashlee Banerjee is a 73 y.o. year-old female who is transferred to us from [facility] for acute upper GIB and need for GI services. Patient has past medical history as listed below, which is significant for primary biliary cirrhosis s/p liver biopsy 09/20/24 and 'watermelon stomach'. Patient was a direct admit at [place] from her doctor's office due to abdominal pain. She states that she has been having intermittent RUQ pain every 2 days or so ever since she had her liver biopsy at [facility]. She also reports that she has noticed dark-colored stools recently. Patient has known history of primary biliary cirrhosis as stated above. She follows with Dr. Patino in [place] as well as with doctors at [facility]. She has had previous EGD in August the patient states did not show varices. While at [place], patient was admitted to the ICU due to hypotension and anemia. She was given 2 units of packed red blood cells and started on norepinephrine. CTA did not show active bleeding, however, did note cholelithiasis and sludge. She was transferred to [facility] for GI services. Currently, vital signs are [...] Past Surgical History: Liver biopsy 09/20/2024 at [facility] Allergies: Morphine Nickel Sulfites Leucine Cyclobenzaprine Penicillins [...] Amin APRN, CNP Acute Care Nurse Practitioner [facility] Critical Care Please feel free to contact me via Patient Touch. CRITICAL CARE TIME: 40 minutes. Non-contiguous time with attending MD, excluding procedures. This patient, with a critical illness, requires constant monitoring and titration of care by a Critical Care Federal Agent or GRICELDA. Failure to do so may result in further organ system failure, imminent deterioration, or . ALEXANDER Rubio 09/29/242032 Cosigned by Hal Linder MD at 09/30/2024 5:21 AM EDT [facility] 09-29-2024 History of Present illness Narrative Report given to transport crew. Called report to Agnieszka at [facility]. [employer] called at this time for update. They [...] hour per orders. Dr. Eller and Teresa HEALTH AND SAFETY SPECIALIST rounding at bedside. Comprehensive Nutrition Assessment Type [...] mass loss Fluid Accumulation: No fluid accumulation Embroidery Specialist Strength: Not Performed Nutrition Assessment: Predicted inadequate [...] Measures: Height: 154.9 cm (5' 0.98 ) [place] Body Weight (IBW): 105 lbs (48 kg) [...] 25.0-29.9) Hematology: Recent Labs 09/26/24 1341 09/28/24 1405 09/29/24 0403 WBC 4.4 5.7 7.3 HGB 9.1* [...] Used for Energy Requirements: Current Energy (kcal/day): 1409-0147 (20-23kcal/kg) Weight Used for Protein Requirements: [place] Protein (g/day): 58-67 (1.2-1.4g/kg) Method Used for Fluid Requirements: 1 ml/kcal Fluid (ml/day): 8492-4692 Nutrition Diagnosis: Predicted inadequate energy intake related [...] Planning: Continue current diet Serena Baig Contact: [phone]igned [address], LD at 09/29/2024 11:52 AM EDT INTENSIVE CARE UNIT ELECTRIC MOTOR ASSEMBLER AND TESTER - Progress Note Patient - Ashlee Banerjee [...] 19 97 % -- 09/29/24 0545 (!) 98 -- -- 65 17 95 % -- [...] 16 96 % -- 09/29/24 0405 (!) 8346 -- -- (!) 48 -- -- -- 09/29/24 0350 (!) 83/ -- -- 50 -- -- -- 09/29/24 0345 (!) 84 -- -- 50 -- -- -- 09/29/24 0344 (!) 72/50 -- -- -- -- -- -- 09/29/24 0340 (!) 68 -- -- (!) 44 -- -- -- 09/29/24 0338 (!) 84 -- -- (!) 48 -- -- -- [...] Intake/Output Summary (Last 24 hours) at 09/29/2024 06 Last data filed at 09/29/20241 Gross per 24 hour Intake 2529.67 ml Output 300 ml Net 2229.67 ml Date 09/29/24 0000 - 09/29/24 2359 Shift [id number] 7480-1984 2357-9837 24 Hour Total INTAKE I.V.(mL/kg/hr) 2529.7 2529.7 [...] results found for: PHART , PH , XPW6ZOM , PCO2 , PO2ART , PO2 , WKS0EIN , HCO3 , BEART , BE , THGBART , THB , ITS7YAV , X5SQHNEN , O2SAT , FIO2 Radiology/Imaging: CTA CHEST [...] I/O Daily Weight Nutritional Supplements as tolerated Auger Operator consult initiated MALNUTRITION ASSESSMENT AND PLAN The [...] so far today, excluding separately billable procedures. [facility] Advanced Care Planning documentation: [x] [...] the patient's medical record. [DOES NOT SATISFY [facility] PERFORMANCE] WM Hopper CNP , WM-HEALTH AND SAFETY SPECIALIST-C 09/29/2024 6:38 AM Cosigned by Cooper Eller MD at 09/29/2024 9:51 AM EDT Associated attestation - Cooper Eller MD - 09/29/2024 9:51 AM EDT Attending Supervising Physician s Attestation Statement I have personally evaluated and examined the patient [id number] in conjunction with the nurse practitioner. I agree with management and disposition of the patient. Examined and Reviewed plan of care with HEALTH AND SAFETY SPECIALIST. Directions and discussion about care and plans. [...] patient. Electronically signed by Cooper Eller MD Java Developer With Security Clearance called patient's emergency contact, Arun Valentine (sister) to make aware of transfer to ICU. Was sent to [facility], message left on voicemail to give call [...] patient care is currently at bedside. RN supervisor counseling and guidance and Smita SOSA at bedside as well. [...] of this issues. Patient hypotensive and bradycardic. Java Developer With Security Clearance called Smita SOSA and requested to come [...] Plan of care ongoing. [facility] at this time. Vitals and assessment complete. See flowsheets for details. Breathing is regular and unlabored. Lung sounds are clear. Patient reports upper mid abdominal pain. Abdomen is soft and tender. Bowel sounds are active x4. Patient reports passing bloody loose stools. Patient denies further needs at this time. Call light is within reach. Care ongoing. documented in this encounter [facility] 09-20-2024 Nurse Note Abdominal pain and nausea [...] car for discharge home per MD order. [facility] 09-20-2024 Miscellaneous Notes Abdominal pain and [...] out - 1207 Intra-procedure pressures obtained by MD as the followinst pressures Right Atrium Pressure: 6 Wedge Pressure: 16 Free Hepatic Pressure: 10 2nd pressures Right Atrium Pressure: 5 Wedge Pressure: 13 Free Hepatic Pressure: 8 documented in this encounter [facility] 09-20-2024 Nurse Note 1330: C/o Continuing to have nausea 1 hour post zofran administration. 5mg IV compazine ordered. 1345: C/o 10/10 abdominal pain, Dr. Whipple notified and assessed patient. 2.5mg oxycodone ordered. [facility] 09-20-2024 Nurse Note Interventional Radiology procedure [...] Wedge Pressure: 13 Free Hepatic Pressure: 8 [facility] 09-20-2024 Hospital Discharge instructions Christina Skaggs [...] or on Weekends, please call the Hospital [facility] at [phone] and ask them for the Interventional Senior Editor On-Call documented in this encounter [facility] 08-23-2024 Note Missing Attachment - attachment storage system not supported [id number] Can be viewed in source system Missing Attachment - attachment storage system not supported [id number] Can be viewed in source system Missing Attachment - attachment storage system not supported [id number] Can be viewed in source system Missing Attachment - attachment storage system not supported [id number] Can be viewed in source system Missing Attachment - attachment storage system not supported [id number] Can be viewed in source system Missing Attachment - attachment storage system not supported [id number] Can be viewed in source system Patient: Ashlee Banerjee Age: 73 years Sex: Female : 1950 Associated Diagnoses: None Author: Andrae Patino MD Pre-Procedure Procedure Date: 08/23/2024 . Procedure Type: Esophagogastroduodenoscopy. Procedure provider: Performed by Andrae Patino MD. Current history and physical: Colonoscopy Biopsy on 01/09/2022 at 71 Years. Comments: 01/09/2022 10:32 REBA - Lisa Garvey auto-populated from documented surgical case Esophagogastroduodenoscopy Biopsy on 07/01/2021 at 70 Years. Comments: 07/01/2021 13:13 Smita Leyva auto-populated from documented surgical case FUSION OF BIG TOE JOINT (32819) on 03/24/2021 at 70 Years. Comments: 06/20/2021 14:27 mSita Leyva Left great toe FUSION OF BIG TOE JOINT (85822) on 11/21/2020 at 70 Years. Comments: 06/20/2021 14:27 Smita Leyva Right great toe TOTAL KNEE ARTHROPLASTY (85423) on 05/24/2016 at 65 Years. Comments: 06/20/2021 14:26 Smita Leyva Lt knee REPAIR ROTATOR CUFF ACUTE (67026) on 05/24/2014 at 63 Years. Comments: 06/20/2021 14:25 Smita Leyva Lt REPAIR ROTATOR CUFF ACUTE (75202) on 05/24/2012 at 61 Years. Comments: 06/20/2021 14:25 Smita Leyva Right TOTAL KNEE ARTHROPLASTY (96517) on 05/24/2010 at 59 Years. Comments: 06/20/2021 14:24 EST - Smita Marques Right ANESTH REPAIR OF HERNIA (25067) on 05/24/1998 at 47 Years. Comments: 06/20/2021 14:23 Smita Leyva 1999 Incisional hernia from hysterectomy REMOVE TONSILS AND ADENOIDS (18197). REMOVE PILONIDAL CYST COMPL (13828). EXPLORATION MAXILLARY SINUS (21374). Comments: 06/20/2021 14:21 Smita Leyva RT ANESTH HYSTERECTOMY (83454). Provision of bladder vibration stimulation device ([id number]).. Informed Consent: After discussing the rationale, risks [...] by Andrae Patino MD 08/23/24 10:49 EDT [facility] Comment on above: Order Comment: Yvonne bravo Attachment - attachment storage system not supported [id number] Can be viewed in source system Missing Attachment - attachment storage system not supported [id number] Can be viewed in source system Missing Attachment - attachment storage system not supported [id number] Can be viewed in source system Missing Attachment - attachment storage system not supported [id number] Can be viewed in source system Missing Attachment - attachment storage system not supported [id number] Can be viewed in source system Missing Attachment - attachment storage system not supported [id number] Can be viewed in source system 06-20-2024 [...] mg, Oral, 2 times daily with meals Hanover 3-6-9 Fatty Acids (TRIPLE OMEGA COMPLEX PO) [...] Use: Not At Risk (03/27/2024) Received from [facility] Frequency of Alcohol Consumption: Never [...] requiring urgent evaluation. documented in this encounter [facility] 04-12-2024 History of Present illness Narrative DX: [id number] Posterior cervical laminoplasty, C4 to C7, with [employer]ide[employer] Canopy laminoplasty system. LV: [id number] Ms Rubio returns today now 1 year [...] cervical spine xrays. documented in this encounter [facility] 03-20-2024 History of Present illness Narrative [...] has a follow up scheduled next week 03/27 to discuss b/l swelling noted to her [...] Keith Gabriel D.O. documented in this encounter [facility] 02-22-2024 Telephone encounter Note Pt reports doing well, finishing up with therapy in coming weeks.. discussed travels to [place]. For appts.. pt will take breaks with travel.. pt pleased with progress, working on balance, occ tylenol. I am really doing well. [facility] 02-22-2024 Miscellaneous Notes Pt reports doing well, finishing up with therapy in coming weeks.. discussed travels to [place]. For appts.. pt will take breaks with travel.. pt pleased with progress, working on balance, occ tylenol. I am really doing well. Patient left vm asking for Andrei to call her back regarding her travel restrictions. Please advise [phone]. documented in this encounter [facility] 02-22-2024 Telephone encounter Note Patient left vm asking for Andrei to call her back regarding her travel restrictions. Please advise [phone]. [facility] 02-02-2024 History of Present illness Narrative Images from the original note were not included. HISTORY OF PRESENT ILLNESS: POST OP PT Ashlee Banerjee is an 73 y.o. @ female. (EST PT ; LAST APPT W/ ANDREI) S/P (L) JESUS - NICKEL FREE 12/23/23 (5WKS 6DAYS) XRAYS DONE TODAY, 02/02/24 IN [facility] CONTINUES TO HAVE DISCOMFORT - WORSE HS [...] POST-OP Ambulatory referral to Physical Therapy [facility] ; continue to increase strength / ROM [...] proceeds to formal physical therapy at [facility] as an outpatient. Patient admits that she has been taking Meloxicam and ASA 81mg for years ; she is understanding we are recommending that she clear that per Dr. Eller. We have discussed her HEP and restrictions and will see her back on 10/28 to reassess her left hip. We will place her yearly b/l TKA appt on hold at this time. Keith Gabriel D.O. documented in this encounter [facility] 01-17-2024 Telephone encounter Note Mimi from [facility] called today and left vm wanting some clarification on pt for Eloquis- pt is saying something different than what than had down. Please call them to clarify at [phone] [facility] 01-17-2024 Miscellaneous Notes Mimi from [facility] called today and left vm wanting some clarification on pt for Eloquis- pt is saying something different than what than had down. Please call them to clarify at [phone] documented in this encounter [facility] 12-28-2023 Note [id number]#[id number] 12-27-2023 Note Education Materials POST OPERATIVE [...] #8 follow up in office with physician assistant professor in family studies Andrei Dutta as scheduled #9 [facility] will be contacting you within the next 24 hours to set up home therapy visit #[address] Gabriel at the office [phone] or have him paged through the hospital brake operator [phone] for any concerns or questions #11 call [...] 14 days to help prevent blood clots [facility] 12-27-2023 Note [facility] 2SOUT Clinical Discharge Summary PERSON INFORMATION Name ASHLEE BANERJEE Age 73 Years 1950 Sex FEMALE Language Montenegrin PCP COOPER ELLER MD Marital Status Single Phone Med Service Med/Surg Acct# Arrival 12/23/2023 05:40:58 Visit Reason SURGERY - LEFT TOTAL HIP - NICKEL FREE - DEPUY Acuity LOS 004 04:35 Address: [address] [place] [id number] Comment: PROVIDER INFORMATION VITALS INFORMATION Vital Sign [...] morphine; penicillin Medication List: New Medications [id number], [address], [place] [id number], [phone] apixaban (Eliquis 2.5 mg oral tablet) 1 [...] range between ( 1.3 and 2.9 ) [place] Abs#: 0.9 x103/mcL -- Normal range between ( 0.0 and 0.8 ) Auto Baso %: 1.2 % -- Normal range between ( 0.2 and 2.0 ) Auto [place] %: 13 % -- Normal range between [...] ) UA S (more content not included)... [facility] 12-25-2023 Note [id number] 11-29-2023 History of Present illness Narrative Images from the original note were not included. Chief Complaint: Primary biliary cholangitis (PBC) History of Present Illness: Ashlee Banerjee is a 73 y.o. female who presents to the [facility] Gastroenterology, Hepatology, and Nutrition Clinic today regarding [...] Division of Gastroenterology, Hepatology and Nutrition [facility] Patient has verified full name and . documented in this encounter [facility] 11-29-2023 Instructions Lakisha Cordoba MD - [...] in one year. documented in this encounter [facility] 09-15-2023 History of Present illness Narrative [...] her cervical spine. documented in this encounter [facility] 06-17-2023 History of Present illness Narrative [...] her cervical spine. documented in this encounter [facility] 05-04-2023 Telephone encounter Note RN called [...] Pt asked how to send messages in [employer]. RN let her know to make sure she is logged into her ebindlet and to send messages to Dr Vergara and they will get to his RN. Pt agreeable. No further questions. Pt verbalized understanding. ----- Message from Judith Palm sent at 05/04/2023 12:15 PM EST ----- Regarding: clarification Needs clarification on her neck exercises. Please call. [facility] 05-04-2023 Miscellaneous Notes RN called pt. [...] Pt asked how to send messages in [employer]. RN let her know to make sure she is logged into her ebindlet and to send messages to Dr Vergara and they will get to his RN. Pt agreeable. No further questions. Pt verbalized understanding. ----- Message from Judith Paml sent at 05/04/2023 12:15 PM EST ----- Regarding: clarification Needs clarification on her neck exercises. Please call. documented in this encounter [facility] 04-22-2023 History of Present illness Narrative [...] C/D/I, at neuro baseline, deltoids intact. [place] removed from surgical incision, steri-strips applied. INV: [...] the cervical spine. documented in this encounter [facility] 04-09-2023 Telephone encounter Note RN called [facility] back. Spoke with Tasha who had originally [...] 4:13 PM EST ----- Regarding: ? from [facility] [phone] Calling to question can she get a shower ? Hair washed ? Still has justine - Dressing off today [facility] 04-09-2023 Miscellaneous Notes RN called SNF [...] 4:13 PM EST ----- Regarding: ? from [facility] [phone] Calling to question can she get a shower ? Hair washed ? Still has justine - Dressing off today documented in this encounter [facility] 03-23-2023 History of Present illness Narrative DX: Cervical spondylosis with myelopathy LV: [id number] Ms Banerjee comes in today with family. [...] of their surgery. documented in this encounter [facility] 03-23-2023 Instructions Dee Mireles APRN-SHEILA - [...] all Co Q 10 , Vitamin E, [place] 3, fish oil and herbal supplements for 1 week prior to surgery Do not take Valsartan,hydrochlorothiazide morning of surgery Don't take any metformin evening before and the morning of surgery Do not take any diabetes medication on the morning of the surgery documented in this encounter [facility] 03-23-2023 Instructions Dee Mireles APRN-CNP - [...] all Co Q 10 , Vitamin E, [place] 3, fish oil and herbal supplements for 1 week prior to surgery Do not take Valsartan,hydrochlorothiazide morning of surgery Don't take any metformin evening before and the morning of surgery Do not take any diabetes medication on the morning of the surgery documented in this encounter [facility] 03-23-2023 Evaluation note Patient was identified by name and date of . Kassandra Griggs Patient at risk for falls:No Falls Risk protocol implemented: No [facility] 03-23-2023 Miscellaneous Notes Patient was identified by name and date of . Kassandra Griggs Patient at risk for falls:No Falls Risk protocol implemented: No Images from the original note were not included. Presurgical Evaluation (Pre-Admission Testing) Consultation Ashlee Banerjee, [id number] 72 year old Female 03/23/2023 Consult placed [...] MCG (2000 UT) TABS Take by mouth. Hanover 3-6-9 Fatty Acids (TRIPLE OMEGA-3-6-9 ORAL) Take [...] Signed During This Encounter GLUCOSE, FINGERSTICK-IN OFFICE [10943] BASIC METABOLIC PANEL [CH8] HEPATIC FUNCTION PANEL [HEPATIC] COMPLETE BLOOD COUNT W/DIFF (RAPID RESPONSE LABS) PROTHROMBIN TIME AND INR [PT] PARTIAL THROMBOPLASTIN TIME [APTT] TYPE AND SCREEN [TS] Abo Rh Type Complete Blood Count W/Diff EKG 12-LEAD TRACING [92402] LABORATORY DATA: Contains abnormal data HEMOGLOBIN A1C Order: [id number] Component Ref Range & Units 3 mo [...] 10:50 AM 03/23/2023 documented in this encounter [facility] 03-23-2023 Miscellaneous Notes Patient was identified by name and date of . Kassandra Anson Patient at risk for falls:No Falls Risk protocol implemented: No Images from the original note were not included. Presurgical Evaluation (Pre-Admission Testing) Consultation Ashlee Banerjee, [id number] 72 year old Female 03/23/2023 Consult placed [...] MCG (2000 UT) TABS Take by mouth. Hanover 3-6-9 Fatty Acids (TRIPLE OMEGA-3-6-9 ORAL) Take [...] Signed During This Encounter GLUCOSE, FINGERSTICK-IN OFFICE [95889] BASIC METABOLIC PANEL [CH8] HEPATIC FUNCTION PANEL [HEPATIC] COMPLETE BLOOD COUNT W/DIFF (RAPID RESPONSE LABS) PROTHROMBIN TIME AND INR [PT] PARTIAL THROMBOPLASTIN TIME [APTT] TYPE AND SCREEN [TS] Abo Rh Type Complete Blood Count W/Diff EKG 12-LEAD TRACING [43288] LABORATORY DATA: Contains abnormal data HEMOGLOBIN A1C Order: [id number] Component Ref Range & Units 3 mo [...] 10:50 AM 03/23/2023 documented in this encounter [facility] 03-22-2023 Evaluation note Images from the original note were not included. Presurgical Evaluation (Pre-Admission Testing) Consultation Ashlee Banerjee, [id number] 72 year old Female 03/23/2023 Consult placed [...] MCG (2000 UT) TABS Take by mouth. Hanover 3-6-9 Fatty Acids (TRIPLE OMEGA-3-6-9 ORAL) Take [...] Signed During This Encounter GLUCOSE, FINGERSTICK-IN OFFICE [97598] BASIC METABOLIC PANEL [CH8] HEPATIC FUNCTION PANEL [HEPATIC] COMPLETE BLOOD COUNT W/DIFF (RAPID RESPONSE LABS) PROTHROMBIN TIME AND INR [PT] PARTIAL THROMBOPLASTIN TIME [APTT] TYPE AND SCREEN [TS] Abo Rh Type Complete Blood Count W/Diff EKG 12-LEAD TRACING [47170] LABORATORY DATA: Contains abnormal data HEMOGLOBIN A1C Order: [id number] Component Ref Range & Units 3 mo [...] Interviewer signature: ALEXANDER Alvarez 10:50 AM 03/23/2023 [facility] 02-11-2023 History of Present illness Narrative A soft cervical collar was dispensed to patient in clinic today. Patient was identified by name and date of . Lisa Huff RN Patient at risk for falls:Yes Falls Risk protocol implemented: Yes Ambulates with cane Lisa Huff RN Images from the original note were not included. DX: Cervical myelopathy LV: [id number] Ms Banerjee returns today. She received a ANAHY [id number]. It affected her neck symptoms on the [...] every 4-6 months. documented in this encounter [facility] 12-24-2022 History of Present illness Narrative Patient was identified by name and date of . Lisa Huff RN Patient at risk for falls:No Falls Risk protocol implemented: No Images from the original note were not included. DX: Cervical myelopathy LV: [id number] Ms Banerjee returns today. [facility] pain management refused to do a ANAHY. She is going to talk to her new pain management docs in [place]. INV: MRI cervical performed 16oct2022 IMP: 71yo [...] every 4-6 months. documented in this encounter [facility] 11-10-2022 Evaluation + Plan note Extrac [...] substances from her current pain provider at [place]. She wishes to continue receiving those prescriptions [...] understanding and agrees with plan of care [facility]06-08-2023 History of Present illness Narrative* Lisa Huff RN - 10/29/2022 9:58 AM EDT Patient was identified by name and date of . Lisa Huff RN Patient at risk for falls:No Falls Risk protocol implemented: No * Geri Vergara MD - 10/28/2022 6:37 AM EDT Images from the original note were not included. DX: Lumbar stenosis rule out cervical myelopathy LV: [id number] Ms Banerjee returns today to review the new cervical MRI. Remember, she received a LESI which DID NOT affect her symptoms INV: MRI cervical performed [id number] IMP: 71yo female significant cervical cord compression [...] will consider her options. documented in this [id number] NoteCONSULTATION PROCEDURE DATE: 07/30/2022 PREOPERATIVE DIAGNOSIS: Bilateral [...] will be followed up in the office.[facility] 07-30-2022 NoteCONSULTATION CONSULTATION DATE: 07/30/2022 HISTORY OF PRESENT ILLNESS: This is a 71-year-old female who returns to the clinic status post lumbar epidural steroid injection completed on 07/07/2022. This patient received a lumbar epidural and it afforded only 10% relief. Historically, she has received much better relief, and she is disappointed. Medications include [place] 5/325 b.i.d., Mobic 15 mg daily, Tylenol and trazodone. Patient has seen Dr. Geri Vergara, neurosurgeon, at [facility], but he has since moved to [facility]. She is going to follow up [...] in two months' time, unless otherwise indicated.[facility] [id number] NoteCONSULTATION CONSULTATION DATE: 06/25/2022 HISTORY OF PRESENT ILLNESS: This is a 71-year-old female who returns to the clinic following neurosurgical evaluation with Dr. Geri Vergara at [facility] in [place]. She was last seen in the office [...] denies any falls or injuries. Medications include [place] 5/325 daily p.r.n., which she does use [...] mg daily and maintain her on her [place] 5/325 p.r.n. Patient agrees with the procedure and will be followed up in the clinic thereafter.[facility] [id number] Evaluation + Plan noteExtracted from: Title:Spine Follow [...] She will follow-up with spine as needed. [facility]12-15-2022 NoteCONSULTATION PROCEDURE DATE: 05/07/2022 PREOPERATIVE DIAGNOSIS: Left [...] will be followed up in the office.[facility] [id number] NoteCONSULTATION CONSULTATION DATE: 05/07/2022 HISTORY OF PRESENT [...] consent to. We will start her on [place] 5/325 once or twice daily p.r.n. for pain. We are sending a referral to Neurosurgery to Dr. Anjum Vergara in [facility]. Patient agrees with this plan of care, will be followed up here in two months' time, unless otherwise indicated.[facility] [id number] NoteCONSULTATION CONSULTATION DATE: 04/22/2022 This is a [...] of care. The patient is in agreement.[facility] [id number] NoteCONSULTATION CONSULTATION DATE: 03/18/2022 HISTORY OF PRESENT [...] followed up in the office post procedure.[facility] [id number] NoteCONSULTATION CONSULTATION DATE: 02/19/2022 HISTORY OF PRESENT [...] followed up in the office post procedure.[facility] [id number] Note CONSULTATION CONSULTATION DATE: 11/19/2021 HISTORY OF [...] Patient agrees with the plan of care. [facility] Signed and Approved by: ANDREW CALLEJAS . 11/20/2021 13:37:00[facility]05-19-2022 NoteCONSULTATION CONSULTATION DATE: 10/09/2021 This 70-year-old [...] followed up in the office post procedure. [facility] Signed and Approved by: ANDREW CALLEJAS . 10/13/2021 14:58:00[facility]03-15-2022 History of Present illness Narrative* Delores [...] a responsible adult. Yes documented in this [employer] Phone: 1(983) 267-859203-15-2022 Hospital Discharge instructions* Instructions* Delores Wilson RN [...] urine. Call Dr. Alvarenga for any questions [phone] documented in this [employer] Phone: 1(597) 865-395003-02-2022 History of Present illness Narrative* Sayda Sepulveda RN - 07/23/2021 9:00 AM EST [facility] Preadmission Testing Name: Ashlee Stephanie Banerjee : 1950 Patient (home) Procedure INTERSTIM [...] stress test? [x] Yes [] No When/where: [facility] Was it normal? [x] Yes [...] instructions reviewed with patient. [facility]: evaluation + Plan note No data available for this section [facility] + Plan note Future Appointments Appointment Date:06/16/2022 01:30:00 PM Scheduled Provider:Janie Henning PA-C Location:[facility] Appointment Type:Spine - Follow Up ([facility]) [facility] note* Diagnosis Preop testing Preoperative examination, unspecified documented in this encounter [employer] Phone: evaluation note* Diagnosis OAB (overactive bladder)- Primary Hypertonicity of bladder Mixed incontinence Mixed incontinence urge and stress (male)(female) documented in this encounter [employer] Phone: evaluation note* Diagnosis Urinary urgency Urgency of urination documented in this encounter [employer] Phone: evaljbegko note* Diagnosis Urinary urgency Urgency of urination Frequency of micturition Urinary frequency documented in this encounter [employer] Phone: evaluation note* Diagnosis Spinal stenosis of lumbar region, unspecified whether neurogenic claudication present- Primary [facility] Spinal stenosis of lumbar region, [...] tumor markers [facility] Diagnosis Status post left hip replacement- Primary [facility] Diagnosis Nocturia [facility] Diagnosis Cervical spondylosis with myelopathy- Primary [facility] Cervical spondylosis with myelopathy [facility]* Diagnosis Status post left hip replacement- Primary Acute hip pain, left documented in this [facility]* Diagnosis Left hip pain- Primary Pain in joint, pelvic region and thigh Status post left hip replacement documented in this [facility]* Diagnosis Liver fibrosis Cirrhosis of liver without mention of alcohol [facility] Diagnosis Acute abdominal pain- Primary Abdominal pain, unspecified site Primary biliary cirrhosis (HCC) / 2003 / MRI 2022 Biliary cirrhosis Essential hypertension Unspecified essential hypertension Type 2 diabetes mellitus without complication, without long-term current use of insulin (HCC) / Metformin ER Gastrointestinal hemorrhage associated with anorectal source Hypovolemic shock (HCC) Other shock without mention of trauma [facility] [place] [facility]* Diagnosis GI bleed- Primary Unspecified, hemorrhage of gastrointestinal tract Gastrointestinal hemorrhage with melena Gastrointestinal hemorrhage, unspecified gastrointestinal hemorrhage type Acute blood loss anemia Acute posthemorrhagic anemia Iron deficiency anemia, unspecified iron deficiency anemia type Right upper quadrant abdominal pain [facility] Diagnosis Left hip pain Pain in joint, pelvic region and thigh Acute pain of left knee Acute pain of right knee documented in this encounter [facility]* Diagnosis Nocturia Mixed incontinence Mixed incontinence urge and stress (male)(female) documented [facility] [place] [facility]* Diagnosis Snoring Other dyspnea and respiratory abnormality Type 2 diabetes mellitus without complication, without long-term current use of insulin (HCC) / Metformin ER Sleep apnea, unspecified type [facility] Diagnosis Mixed incontinence Mixed incontinence urge and stress (male)(female) Suprapubic pain Abdominal pain, other specified site documented in this encounter [facility] Discharge instructions No data available for this section [facility] Discharge instructions* Attachments The following attachments cannot be sent through Care Everywhere. * Blood Transfusions: General Info (Montenegrin) [facility] Discharge instructionsNot on filedocumented in this encounterPro[facility] InstructionsNot on filedocumented in this encounterA[facility] Progress note No data available for this section [facility] (narrative)* Consultation (Routine) - New Request Specialty Diagnoses / Procedures Referred By Rebekah lara Referred To Contact Diagnoses Primary biliary cholangitis Abnormal LFTs Splenomegaly Lakisha Cordoba MD [address] [place] [address] 3rd [place] [address] Referral ID Status Reason Start Date Expiration Date V isits Requested Visits Authorized [id number] New Request 11/29/2023 12/23/2024 1 1 [facility] for visit Narrative* Auth/Cert Specialty Diagnoses / Procedures Referred By Rebekah lara Referred To Contact Diagnoses OAB (overactive bladder) OAB MIXED CONTINENCE Procedures VA OPEN IMPLANTATION JENNI SACRAL NERVE SACRAL NERVE STIMULATOR IMPLANT--REMOVE INTERSTIM AND LEADS PLACEMENT OF NEW INTERSTIM Mj Alvarenga MD [address] [place] [address], [address] [place] [address] [facility] [id number] [place] [address] Referral ID Status Reason Start Date Expiration Date Visits Re quested Visits Authorized [id number] 1 1 [employer] Phone: reason for visit Narrative* Diagnostic X-Ray (Routine) - Closed Specialty Diagnoses / Procedures [facility] Referred To Contact Radiology Diagnoses Cervical spondylosis with myelopathy Procedures XR C-SPINE FLEX/EXT ONLY 2 VIEWS Geri Vergara MD [address] [place] [address] Phone: tel: fax: [facility] [address] [place] [address] Phone: tel: Referral ID Status Reason Start Date Expiration Date Visits Re quested Visits Authorized [id number] Closed 04/12/2024 04/12/2025 1 [facility] Auth/Cert Specialty Diagnoses / Procedures Referred By Rebekah t Referred To Contact Diagnoses Liver fibrosis Liver fibrosis [K74.00] Procedures CHG HEPATC VNGRPH WDG/FR HEMODYN EVAL RS&I VA TRANSCATHETER BIOPSY CHG TRANSCATHETER BIOPSY RS&I VENOGRAPHY HEPATIC W/HEMODYNM EVALUATION W/S&I BX TRANSCATHETER BX TRANSCATHETER W/ S&I Ihisschedule, Interventional Rad [address] [place] [address] Phone: tel: fax: [facility] [address] [place] [address] Referral ID Status Reason Start Date Expiration Date Visits Re quested Visits Authorized [id number] 1 1 [facility]* Auth/Cert Specialty Diagnoses / Procedures Referred By Rebekah t Referred To Contact Diagnoses Acute abdominal pain Cooper Eller MD [address] [facility], [place] [address] Phone: tel: fax: [facility] [address] [place] [address] Referral ID Status Reason Start Date Expiration Date Visits Re quested Visits Authorized [id number] [facility] Narrative* Auth/Cert Specialty Diagnoses / Procedures Referred By Contac t Referred To Contact Diagnoses GI Bleed [facility] [address] [place] [address] Referral ID Status Reason Start Date Expiration Date Visits Re quested Visits Authorized [id number] 1 1 [facility] N[facility]ative* Other (Routine) - Not Required - RTA Specialty Diagnoses / Procedures Referred By Contac t Referred To Contact Sleep Center Diagnoses Snoring Type 2 diabetes mellitus without complication, without long-term current use of insulin (HCC) Sleep apnea, unspecified type Procedures Home Sleep Study Prashant Hernandez, ELECTRIC MOTOR ASSEMBLER AND TESTER - BEVELING MACHINE OPERATOR [address] [place] [address] Phone: tel: fax: Referral ID Status Reason Start Date Expiration Date V isits Requested Visits Authorized [id number] Not Required - RTA 02/06/2025 02/06/2026 1 1 [facility] Assessments Diagnosis Mixed incontinence Mixed incontinence urge and stress (male)(female) OAB (overactive bladder) Hypertonicity of bladder Frequency of urination Urinary frequency Urgency of urination Diagnosis Mixed incontinence Mixed incontinence urge and stress (male)(female) Diagnosis Renal stones Calculus of kidney Advance Directives Documents on File Type Date Recorded Patient Barrel Washer Expl anation Advance Directives and Living Will Power of Reservations Agent Latest Code Status on File Code Status Date Activated Date Inactivated Comments Full Code 04/07/2016 12:51 PM 04/07/2016 6:11 PM Full Code 03/24/2016 7:53 AM 03/24/2016 2:13 PM Documents on File Type Date Recorded Patient Barrel Washer Expl anation ACP-Advance Directive ACP-Power of Reservations Agent Latest Code Status on File Code Status Date Activated Date Inactivated Comments Full Code 04/07/2016 12:51 PM 04/07/2016 6:11 PM Full Code 03/24/2016 7:53 AM 03/24/2016 2:13 PM Latest Code Status on File Code Status Date Activated Date Inactivated Comments Full Code 08/05/2021 12:10 PM Full Code 04/07/2016 12:51 PM 04/07/2016 6:11 PM Documents on File Type Date Recorded Patient Barrel Washer Expl anation ACP-Advance Directive ACP-Power of Reservations Agent Latest Code Status on File Code Status [...] 6:17 PM Date Activated Date Inactivated Comments 09/28/2024 1:46 PM 09/29/2024 8:18 PM Date Activated Date Inactivated Comments 08/05/2021 12:10 PM 08/05/2021 6:52 PM Date Activated Date Inactivated Comments 04/07/2016 12:51 PM 04/07/2016 6:11 PM Date Activated Date Inactivated Comments 03/24/2016 7:53 AM 03/24/2016 2:13 PM Date Activated Date Inactivated Comments 09/28/2024 1:46 PM 09/29/2024 8:18 PM Reason for Referral Specialty Diagnoses / Procedures Referred By Contac t Referred To Contact Cardiology Diagnoses Preop testing Procedures EKG 12 Lead Prashant Hernandez, ELECTRIC MOTOR ASSEMBLER AND TESTER - BEVELING MACHINE OPERATOR [address] [place] [phone] Referral ID Status Reason Start Date Expiration Date Visits Re quested Visits Authorized [id number] Open 07/22/2021 07/22/2022 1 1 Specialty Diagnoses / Procedures Referred By Contac t Referred To Contact Radiology Diagnoses Spinal stenosis of lumbar region, unspecified whether neurogenic claudication present Procedures DOWNLOAD POWERSHARE IMAGES TO Geri Garay MD [address] [place] [address] [facility] DI[facility] RADIOLOGY [address] [place] [address] [place] [address] Referral ID Status Reason Start Date Expiration Date V isits Requested Visits Authorized [id number] Authorized 09/23/2022 09/23/2023 1 1 Specialty Diagnoses / Procedures Referred By Contac t Referred To Contact Radiology Diagnoses Myelopathy (HCC) Procedures MR NEURO IMAGE IMPORT(WHIT) DOWNLOAD POWERSHARE IMAGES TO Geri Garay MD [address] [place] [address] [facility] RAD[facility]OLOG[facility] [address] [place] [address] [place] [address] Referral ID Status Reason Start Date Expiration Date Visits Re quested Visits Authorized [id number] Closed 10/26/2022 10/26/2023 1 1 Specialty Diagnoses / Procedures Referred By Contac t Referred To Contact Radiology Diagnoses Cervical spondylosis with myelopathy Procedures CT C-SPINE W/O CONTRAST Geri Vergara MD [address] [place] [address] [facility] CT SCAN Referral ID Status Reason Start Date Expiration Date V isits Requested Visits Authorized [id number] Authorized 02/15/2023 02/15/2024 1 1 Referral ID Status Reason Start Date Expiration Date Visits Re quested Visits Authorized [id number] Closed 02/15/2023 02/15/2024 1 1 Specialty Diagnoses / Procedures Referred By Contac t Referred To Contact Radiology Diagnoses Cervical spondylosis with myelopathy Procedures XR C-SPINE FLEX/EXT ONLY 2 VIEWS Geri Vergara MD [address] [place] [address] [facility] [address] [place] [phone] Referral ID Status Reason Start Date Expiration Date Visits Re quested Visits Authorized [id number] Closed 06/16/2023 06/15/2024 1 1 Referral ID Status Reason Start Date Expiration Date V isits Requested Visits Authorized [id number] Pending Review 09/15/2023 09/14/2024 1 1 Specialty Diagnoses / Procedures Referred By Contac t Referred To Contact Physical Therapy Diagnoses Acute hip pain, left Status post left hip replacement Procedures VA OFFICE/OUTPATIENT NEW HIGH MDM 60 MINUTES Jr. Keith Gabriel DO [address] [address] Referral ID Status Reason Start Date Expiration Date Visits Requested Visits Authorized [id number] Authorized Specialty Services Required 02/02/2024 07/31/2024 10 10 Summary Purpose Family History No Family History Records FoundNo Family History Records FoundNo Family History Records FoundNo Family History Records FoundNo Family History Records FoundNo Family History Records FoundNo Family History Records FoundNo Family History Records FoundNo Family History Records FoundNo Family History Records Found Additional Source Comments Care Teams (unrecognized sec tion and content) Lion Trainer Relationship Specialty Start Date End Date Cooper Eller MD [address] [place] [address], [place] [place] [address] PCP - General Internal Medicine 07/20/14 Lion Trainer Relationship Specialty Start Date End Date Cooper Eller MD [address] [place] [address], [place] [place] [address] PCP - General Internal Medicine 07/20/14 Lion Trainer Relationship Specialty Start Date End Date Cooper Eller MD [address] [facility], [place] [address] PCP - General Internal Medicine 07/20/14 Lion Trainer Relationship Specialty Start Date End Date Geri Vergara MD [address] [place] [address] Physician Orthopaedic Surgery 09/26/22 Lion Trainer Relationship Specialty Start Date End Date Geri Vergara MD [address] [place] [address] 31911 Physician Orthopaedic Surgery 09/26/22 Lion Trainer Relationship Specialty Start Date End Date Geri Vergara MD [address] [place] [address] 42798 Physician Orthopaedic Surgery 09/26/22 Lion Trainer Relationship Specialty Start Date End Date Geri Vergara MD [address] [place] [address] 58688 Physician Orthopaedic Surgery 09/26/22 Lion Trainer Relationship Specialty Start Date End Date Geri Vergara MD [address] [place] [address] 28755 Physician Orthopaedic Surgery 09/26/22 Lion Trainer Relationship Specialty Start Date End Date Geri Vergara MD [address] [place] [address] 69302 Physician Orthopaedic Surgery 09/26/22 Lion Trainer Relationship Specialty Start Date End Date Geri Vergara MD [address] [place] [address] 50272 Physician Orthopaedic Surgery 09/26/22 Lion Trainer Relationship Specialty Start Date End Date Geri Vergara MD [address] [place] [address] 40369 Physician Orthopaedic Surgery 09/26/22 Lion Trainer Relationship Specialty Start Date End Date Geri Vergara MD [address] [place] [address] 08000 Physician Orthopaedic Surgery 09/26/22 Lion Trainer Relationship Specialty Start Date End Date Geri Vergara MD [address] [place] [address] 91678 Physician Orthopaedic Surgery 09/26/22 Lion Trainer Relationship Specialty Start Date End Date Geri Vergara MD [address] [place] [address] 07157 Physician Orthopaedic Surgery 09/26/22 Lion Trainer Relationship Specialty Start Date End Date Geri Vergara MD [address] [place] [address] 38678 Physician Orthopaedic Surgery 09/26/22 Lion Trainer Relationship Specialty Start Date End Date Geri Vergara MD [address] [place] [address] 45649 Physician Orthopaedic Surgery 09/26/22 Lion Trainer Relationship Specialty Start Date End Date Geri Vergara MD [address] [place] [address] 22513 Physician Orthopaedic Surgery 09/26/22 Dee Mireles, E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 [address] [place] [address] RACQUET MAKER Anesthesiology 03/27/23 Lion Trainer Relationship Specialty Start Date End Date Geri Vergara MD [address] [place] [address] 76289 Physician Orthopaedic Surgery 09/26/22 Dee Mireles APRN-BEVELING MACHINE OPERATOR [address] [place] [address] [place] [address] RACQUET MAKER Anesthesiology 03/27/23 Lion Trainer Relationship Specialty Start Date End Date Geri Vergara MD [address] [place] [address] 67147 Physician Orthopaedic Surgery 09/26/22 Dee Mireles APRN-BEVELING MACHINE OPERATOR [address] [place] [address] [place] [address] RACQUET MAKER Anesthesiology 03/27/23 Lion Trainer Relationship Specialty Start Date End Date Geri Vergara MD [address] [place] [address]14 Physician Orthopaedic Surgery 09/26/22 Dee Mireles APRN-BEVELING MACHINE OPERATOR [address] [place] [address] [place] [address] RACQUET MAKER Anesthesiology 03/27/23 Lion Trainer Relationship Specialty Start Date End Date Geri Vergara MD [address] [place] [address] 25494 Physician Orthopaedic Surgery 09/26/22 Dee Mireles APRN-BEVELING MACHINE OPERATOR [address] [place] [address] [place] [address] RACQUET MAKER Anesthesiology 03/27/23 Lion Trainer Relationship Specialty Start Date End Date Geri Vergara MD [address] [place] [address] 31285 Physician Orthopaedic Surgery 09/26/22 Dee Mireles APRN-BEVELING MACHINE OPERATOR [address] [place] [address] [place] [address] RACQUET MAKER Anesthesiology 03/27/23 Lion Trainer Relationship Specialty Start Date End Date Geri Vergara MD [address] [place] [address]3650 Physician Orthopaedic Surgery 09/26/22 Dee Mireles APRN-BEVELING MACHINE OPERATOR [address] [place] [address] [place] [address] RACQUET MAKER Anesthesiology 03/27/23 Lion Trainer Relationship Specialty Start Date End Date Cooper Eller MD [address] [place] [address] PCP - General Internal Medicine 11/23/22 Andrae Patino MD [address] [place] [address] Gastroenterology 11/23/22 Lion Trainer Relationship Specialty Start Date End Date Cooper Eller MD [address] [place] [address] PCP - General 03/08/23 Lion Trainer Relationship Specialty Start Date End Date Cooper Eller MD [address] [place] [address] PCP - General 03/08/23 Lion Trainer Relationship Specialty Start Date End Date Cooper Eller MD [address] [place] [address] PCP - General 03/08/23 Lion Trainer Relationship Specialty Start Date End Date Cooper Eller MD [address] [place] [address] PCP - General Internal Medicine 07/20/14 Lion Trainer Relationship Specialty Start Date End Date Geri Vergara MD [address] [place] [address] Physician Orthopaedic Surgery 09/26/22 Dee Mireles APRN-BEVELING MACHINE OPERATOR [address] [place] [address] RACQUET MAKER Anesthesiology 03/27/23 Lion Trainer Relationship Specialty Start Date End Date Cooper Eller MD [address] [place] [phone] PCP - General 03/08/23 Lion Trainer Relationship Specialty Start Date End Date Cooper Eller MD [address] [place] [address] PCP - General 03/08/23 Lion Trainer Relationship Specialty Start Date End Date Cooper Eller MD [address] [place] [address] PCP - General 03/08/23 Lion Trainer Relationship Specialty Start Date End Date Cooper Eller MD [address] [place] [address] PCP - General 03/08/23 Lion Trainer Relationship Specialty Start Date End Date Cooper Eller MD [address] [place] [address] PCP - General Internal Medicine 11/23/22 Andrae Patino MD [address] [place] [address] Gastroenterology 11/23/22 Lion Trainer Relationship Specialty Start Date End Date Cooper Eller MD [address] [place] [address] PCP - General Internal Medicine 07/20/14 Lion Trainer Relationship Specialty Start Date End Date Cooper Eller MD [address] [place] [address] PCP - General 03/08/23 Lion Trainer Relationship Specialty Start Date End Date Cooper Eller MD [address] [place] [address] PCP - General 03/08/23 Lion Trainer Relationship Specialty Start Date End Date Cooper Eller MD [address] [place] [address] PCP - General Internal Medicine 07/20/14 Lion Trainer Relationship Specialty Start Date End Date Cooper Eller MD [address] [place] [address] PCP - General Internal Medicine 07/20/14 Lion Trainer Relationship Specialty Start Date End Date Cooper Eller MD [address] [place] [address] PCP - General Internal Medicine 07/20/14 Scheduled Active and Recently Administ ered Medications (unrecognized section and content) Medication Order 08/03/2021 08/04/202108/05/2021 acetaminophen (TYLENOL) tablet 650 mg (COMPLETED) 650 [...] Felton RN)1429 (NoRateChange - Provider: WM Olea DEMO SPECIALIST)1548 (Paused - Provider: WM Nash CRNA - [...] in 24 hours., PACU only lidocaine-EPINEPHrine 2 percent-1:625618 injection (CANCELED) PRN, Starting on Wed08/05/21 at [...] total cumulative dose: 1mg, Intra-op/Intra-Proc lidocaine-epinephrine 2 %-1:012847 injection 0-20 mL 0-20 mL, Infiltration, ONCE, [...] RN)1207 (Given - Provider: Smita Pyle RN) Ondansetron [...] since Wed09/29/2024 at 0649 until manually unheld 1529 (Not Given - Provider: Ronel Jackson RN [...] RESP, First dose (after last reorder) on Renee 09/28/24 at 2200, Until Discontinued, Please select a reason the therapeutic interchange was not accepted: Okay for Pharmacy to Substitute 2150 (Given - Provider: Dana Fajardo RN) 09 (Given - Provider: Valorie Coronado, AURORA)1999 (Due) levothyroxine (SYNTHROID) tablet 100 mcg 100 [...] sodium chloride 0.9 % 100 mL IVPB (Upnx6Zpt) (COMPLETED)(Linked Group 1) 1,000 mg, IntraVENous, ONCE, 1 dose, On Renee 09/28/24 at 1415, Antimicrobial Indications: Intra-Abdominal Infection, Use 20mm (Blue) [id number] Adapter Preparation instructions: Attach medication vial to one 20mm (Blue) [id number] adapter. Cayetano fluid bag with adapter, mix, and administer per order. 1634 (New Bag - Provider: Ronel Jackson RN)1704 (Stopped - Provider: Ronel Jackson RN) polyvinyl alcohol-povidone 5-6 MG/ML opthalmic solution 1 drop (CANCELED) 1 drop, Both Eyes, 2 TIMES DAILY, First dose on Renee 09/28/24 at 2100, Until Discontinued, Substituted for cycloSPORINE (RESTASIS). 211 (Given - Provider: Zaida Moya RN) sodium chloride 0.9 % bolus 1,000 mL (COMPLETED) 1,000 mL (14.4 mL/kg), IntraVENous, at 983.6 mL/hr, Administer over 61 Minutes, ONCE, On Renee 09/28/24 at 1500, For 1 dose 1547 (New Bag - Provider: Ronel Jackson RN)1726 (Stopped - Provider: Ronel Jackson, AURORA) sodium chloride 0.9 % bolus 1,000 mL [...] Midline or Central Line = 20 mL/lumen 2101 (Not Given - Provider: Dana Fajardo RN [...] DAILY, First dose on Renee 09/28/24 at 2100, Until Discontinued, We do not have this medication in stock, and there is no direct substitute, or substitute was declined. The medication is marked patient supplied, however if the patient cannot provide their own medication then contact the prescriber for an alternative. 2115 (Not Given - Provider: Zaida Moya RN - Reason: Medication not available) 07 (Not Given - Provider: Valorie Coronado RN - Reason: Medication not available)2099 (Due) Continuous Medication Order 09/27/2024 09/28/2024 09/29/2024 0.9 % sodium chloride infusion (CANCELED) IntraVENous, at 125 mL/hr, CONTINUOUS, Starting on Renee 09/28/24 at 1415, For 48 hours, Maintenance IV fluid order, if a bolus IV fluid order is present, begin this order after the bolus is complete. 1713 (New Bag - Provider: Ronel Jackson RN) 0121 (New Bag - Provider: Zaida [...] Coronado, AURORA)1008 (Rate/Dose Change - Provider: Valorie Coronado, RN)1338 (New Bag - Provider: Valorie Coronado, [...] RN) 0328 (New Bag - Provider: Zaida Moya RN)1339 (New Bag - Provider: Valorie Coronado RN) PRN Medication Order 09/27/2024 09/28/2024 09/29/2024 0.9 [...] 10 Minutes, PRN, blood administration, Starting on Wed09/28/24 at 1437, For 1 dose, For use [...] IntraVENous, EVERY 2 HOURS PRN, Starting on Wed09/28/24 at 1357, Until Wed09/29/24 at 0603, Pain [...] IntraVENous, EVERY 3 HOURS PRN, Starting on Wed09/28/24 at 1554, Until Discontinued, Pain Moderate (4-6), allowed for higher pain score per patient request, If oral and IV narcotics ordered, use oral first and only use IV if oral is ineffective or cannot take oral. Do Not give oral and IV within 1 hour of each other unless specifically ordered. 1558 (See Alternative - Provider: Swati Schmidt RN)1929 (Given - Provider: Zaida Moya RN) HYDROmorphone HCl PF (DILAUDID) injection 0.5 mg(Linked Group 2) 0.5 mg, IntraVENous, EVERY 3 HOURS PRN, Starting on Wed09/28/24 at 1554, Until Discontinued, Pain Severe (7-10), If oral and IV narcotics ordered, use oral first and only use IV if oral is ineffective or cannot take oral. Do Not give oral and IV within 1 hour of each other unless specifically ordered. 1558 (Given - Provider: Swati Schmidt, RN)1929 (See Alternative - Provider: Zaida Moya RN) iopamidol (ISOVUE-370) 76 % injection 100 mL [...] sodium chloride 0.9 % 100 mL IVPB (Ywnv6Luv) (COMPLETED)Jump to med 1,000 mg, IntraVENous, ONCE, 1 dose, On Renee 09/28/24 at 1415, Antimicrobial Indications: Intra-Abdominal Infection, Use 20mm (Blue) [id number] Adapter Preparation instructions: Attach medication vial to one 20mm (Blue) [id number] adapter. Cayetano fluid bag with adapter, mix, and administer per order. Followed by meropenem (MERREM) 1,000 mg in sodium chloride 0.9 % 100 mL IVPB (Dvlw2Hnl) (CANCELED) 1,000 mg, IntraVENous, at 33.3 mL/hr, Administer over 180 Minutes, EVERY 8 HOURS, First dose on Renee 09/28/24 at 2200, Use 20mm (Blue) Vbrr4Rrh Adapter Preparation instructions: Attach medication vial to one 20mm (Blue) Akfy4Pjd adapter. Cayetano fluid bag with adapter, mix, [...] after antacids. 1000 (Given - Provider: Madeleine Espinoza RN) insulin lispro (HumaLOG) injection 1-4 Units 1-4 [...] not met) 0828 (Given - Provider: Madeleine Espinoza RN - Comment: bs 245)1146 (Given - Provider: Madeleine Espinoza RN - Comment: bs 204) levothyroxine (SYNTHROID, [...] tests weekly 1049 (Given - Provider: Deidre Payne, AURORA) 0559 (Given - Provider: Teresa Rojo RN)1243 (MAR Hold - Provider: Automatic Transfer Provider - Reason: Patient not available)1517 (MAR Unhold - Provider: Automatic Transfer Provider) 0557 (Given - Provider: Daron Brush RN) loratadine (CLARITIN) tablet 10 mg 10 mg, oral, Daily, First dose on Wed10/02/24 at 1715, Look-alike/sound-alike medication - verify indication for use. 1755 (Given - Provider: Sherie Maldonado RN) 0819 (Given - Provider: Madeleine Espinoza, AURORA) pantoprazole (PROTONIX) injection 40 mg 40 mg, intravenous, Every 12 hours, First dose on Wed09/29/24 at 2000, Look-alike/sound-alike medication - verify indication for use., Indication: Upper GI bleed 0818 (Given - Provider: Chana Beauchamp RN)1931 (Given - Provider: Teresa Rojo, RN) 0728 (Given - Provider: Sherie Maldonado RN)1243 (MAR Hold - Provider: Automatic Transfer Provider - Reason: Patient not available)1517 (MAR Unhold - Provider: Automatic Transfer Provider)202 (Given - Provider: Daron Brush RN) 0820 (Given - Provider: Madeleine Espinoza, [facility]) sodium chloride 0.9 % flush 10 mL(Linked Group 1) 10 mL, intravenous, Every 8 hours, First dose on Wed09/30/24 at 1445, Short-term Central Line. IVP to lumens. 0304 (Given - Provider: Christina Adams RN)1445 (Given - Provider: Chana Beauchamp RN)2245 (Canceled Entry - Provider: Teresa Rojo RN) 0645 (Canceled Entry - Provider: Teresa Rojo, [facility])1243 (MAR Hold - Provider: Automatic Transfer Provider - Reason: Patient not available)1300 (Not Given - Provider: Sherie Maldonado RN - Reason: Other - Comment: pt not on floor)1517 (MAR Unhold - Provider: Automatic Transfer Provider)2241 (Given - Provider: Daron Brush RN) 0557 (Given - Provider: Daron Brush RN)1445 (Not Given - Provider: Madeleine Espinoza, [facility] - Reason: Other - Comment: picc removed) ursodioL (MIHAI FORTE) tablet 500 mg 500 mg, oral, 2 times daily, First dose on Wed10/02/24 at 2100 2025 (Given - Provider: Daron Brush RN) 0818 (Given - Provider: Madeleine Espinoza, [facility]) Continuous Medication Order 10/01/2024 10/02/2024 10/03/2024 sodium chloride 0.9 % infusion () 75 mL/hr, intravenous, Continuous, Starting on Wed09/29/24 at 2015, For 1 day 0317 (Rate/Dose Verify - Provider: Christina Adams, [facility])0400 (Stop Bag - Provider: Christina Adams RN) [...] greater than 5.5 mg/dL. VESICANT (RED) 1243 ([facility] Hold - Provider: Automatic Transfer Provider - Reason: Patient not available)1517 ([facility] Unhold - Provider: Automatic Transfer Provider) calcium gluconate IVPB 1000 mg/50 mL (20 mg/mL premix)(Linked Group 2) 1,000 mg, intravenous, at 50 mL/hr, Administer over 60 Minutes, As needed, for ionized calcium level 3.5 to 4.4 mg/dL, Starting on Wed09/29/24 at 1955, Recheck ionized calcium 6 hours after infusion. Hold calcium replacement for phosphorus greater than 5.5 mg/dL. VESICANT (RED) 1243 ([facility] Hold - Provider: Automatic Transfer Provider - Reason: Patient not available)1517 ([facility] Unhold - Provider: Automatic Transfer Provider) calcium gluconate IVPB 2000 mg/100 mL (20 mg/mL premix)(Linked Group 2) 2,000 mg, intravenous, at 100 mL/hr, Administer over 60 Minutes, As needed, for ionized calcium level 3 to 3.4 mg/dL, Starting on Wed09/29/24 at 1955, Recheck ionized calcium 6 hours after infusion. Hold calcium replacement for phosphorus greater than 5.5 mg/dL. VESICANT (RED) 1243 ([facility] Hold - Provider: Automatic Transfer Provider - Reason: Patient not available)1517 ([facility] Unhold - Provider: Automatic Transfer Provider) dextrose (GLUTOSE) 40 % gel 15 g 15 g, oral, As needed, low blood sugar, blood glucose less than 70 mg/dL, Starting on Wed09/29/24 at 1954, If patient conscious and taking PO. If blood glucose is not greater than 70 mg/dL after initial treatment, repeat treatment. 1243 ([facility] Hold - Provider: Automatic Transfer Provider - Reason: Patient not available)1517 ([facility] Unhold - Provider: Automatic Transfer Provider) dextrose [...] treatment. VESICANT (RED) Warning: HYPERTONIC solution. 1243 ([facility] Hold - Provider: Automatic Transfer Provider - Reason: Patient not available)1517 ([facility] Unhold - Provider: Automatic Transfer Provider) fentaNYL (SUBLIMAZE) injection 25 mcg(Linked Group 3) 25 mcg, intravenous, Every 2 hour PRN, for mild to moderate pain, Starting on Wed09/29/24 at 2002, Look-alike/sound-alike medication - verify indication for use. 1243 ([facility] Hold - Provider: Automatic Transfer Provider - Reason: Patient not available)1517 ([facility] Unhold - Provider: Automatic Transfer Provider) fentaNYL (SUBLIMAZE) injection 50 mcg(Linked Group 3) 50 mcg, intravenous, Every 2 hour PRN, for severe pain, Starting on Wed09/29/24 at 2002, Look-alike/sound-alike medication - verify indication for use. 1243 ([facility] Hold - Provider: Automatic Transfer Provider - Reason: Patient not available)1517 ([facility] Unhold - Provider: Automatic Transfer Provider) glucagon [...] mg/dL after initial treatment, repeat treatment. 1243 ([facility] Hold - Provider: Automatic Transfer Provider - Reason: Patient not available)1517 ([facility] Unhold - Provider: Automatic Transfer Provider) hydrALAZINE (APRESOLINE) injection 10 mg 10 mg, intravenous, Every 6 hours PRN, high blood pressure, Starting on Wed10/01/24 at 0940, For systolic blood pressure greater than 160 mmHg Look-alike/sound-alike medication - verify indication for use. Administer IV doses as a slow IV push; maximum rate: 5 mg/minute. 09 (Given - Provider: Sherie Maldonado RN)1243 ([facility] Hold - Provider: Automatic Transfer Provider - Reason: Patient not available)1517 ([facility] Unhold - Provider: Automatic Transfer Provider) magnesium [...] infusion. 0401 (New Bag - Provider: Christina Adams, [facility])0600 (Rate/Dose Verify - Provider: Christina Adams RN)0605 (Stop Bag - Provider: Christina Adams RN) 0349 (New Bag - Provider: Teresa Rojo, [facility])0549 (Stop Bag - Provider: Teresa Rojo, RN)1243 ([facility] Hold - Provider: Automatic Transfer Provider - Reason: Patient not available)1517 ([facility] Unhold - Provider: Automatic Transfer Provider) magnesium [...] infusion. 0401 (See Alternative - Provider: Christina Adams, RN)0600 (See Alternative - Provider: Christina Adams, RN)0605 (See Alternative - Provider: Christina Adams, RN) 0349 (See Alternative - Provider: Teresa Rojo, [facility])0549 (See Alternative - Provider: Teresa Rojo, [facility])1243 (JUL Hold - Provider: Automatic Transfer Provider - Reason: Patient not available)1517 ([facility] Unhold - Provider: Automatic Transfer Provider) potassium [...] mEq. Do not crush or chew. 1243 ([facility] Hold - Provider: Automatic Transfer Provider - Reason: Patient not available)1517 ([facility] Unhold - Provider: Automatic Transfer Provider) potassium chloride (KAYCIEL) 20 mEq/15 mL solution 20-40 mEq(Linked Group 5) 20-40 mEq, oral, As needed, potassium replacement, Starting on Wed09/29/24 at 1954, [...] per policy and monitor potassium levels 1243 (MAR Hold - Provider: Automatic Transfer Provider - Reason: Patient not available)1517 (MAR Unhold - Provider: Automatic Transfer Provider) potassium [...] over a minimum of 1 hour. 1243 ([facility] Hold - Provider: Automatic Transfer Provider - Reason: Patient not available)151 ([facility] Unhold - Provider: Automatic Transfer Provider) potassium [...] 1.2 = 40 mEq VESICANT (YELLOW) 1243 ([facility] Hold - Provider: Automatic Transfer Provider - Reason: Patient not available)151 ([facility] Unhold - Provider: Automatic Transfer Provider) sodium chloride 0.9 % flush 10 mL(Linked Group 1) 10 mL, intravenous, As needed, line care, Starting on 09/30/24 at 1442, Short-term Central Line. IVP to lumens before and after each use. 1243 ([facility] Hold - Provider: Automatic Transfer Provider - Reason: Patient not available)1517 ([facility] Unhold - Provider: Automatic Transfer Provider) sodium chloride 0.9 % flush 20 mL(Linked Group 1) 20 mL, intravenous, As needed, line care, Starting on 09/30/24 at 1442, Short-term Central Line. IVP to lumens after lab draws, blood infusion, and meds known to precipitate. 1243 (JUL Hold - Provider: Automatic Transfer Provider - Reason: Patient not available)1517 ([facility] Unhold - Provider: Automatic Transfer Provider) Linked [...] needed, potassium replacement, Starting on Wed09/29/24 at 1954, [...] DOWNLOAD POWERSHARE IMAGES TO Geri Garay MD [address] [place] [address] [facility] DIAGNOSTIC RADIOLOGY [address] [place] [address] [place] [id number] Referral ID Status Reason Start Date Expiration Date Visits Re quested Visits Authorized [id number] Closed 09/23/2022 09/23/2023 1 1 Specialty Diagnoses / Procedures Referred By Contac t Referred To Contact Radiology Diagnoses Myelopathy (HCC) Procedures MR NEURO IMAGE IMPORT(WHIT) DOWNLOAD POWERSHARE IMAGES TO Geri Garay MD [address] [place], [place] [id number] [facility] DIAGNOSTIC RADIOLOGY [address] [place] [address] [place] [address] Referral ID Status Reason Start Date Expiration Date Visits Re quested Visits Authorized [id number] Closed 10/26/2022 10/26/2023 1 1 Reason Comments Neck pain Reason Comments Leg/thigh symptoms Reason Comments Monitoring/follow-up Specialty Diagnoses / Procedures Referred By Contac t Referred To Contact Radiology Diagnoses Cervical spondylosis with myelopathy Procedures CT C-SPINE W/O CONTRAST Geri Vergara MD [address] [place], [place] [phone] [facility] CT SCAN Referral ID Status Reason Start Date Expiration Date Visits Re quested Visits Authorized [id number] Closed 02/15/2023 02/15/2024 1 1 Specialty Diagnoses / Procedures Referred By Contac t Referred To Contact General Surgery Diagnoses Cervical spondylosis with myelopathy Cervical spondylosis with myelopathy [M47.12] Procedures LAMINOPLASTY, CERVICAL, W/SPINAL CORD DECOMPRESS, 2/> VERTEBRAL SEGMENTS W/POST BONE RECONSTRUCT LAMINOPLASTY, POSTERIOR CERVICAL Geri Vergara MD [address] [place] [id number] [facility] [address] [place] [id number] Phone: [phone] Referral ID Status Reason Start Date Expiration Date Visits Re quested Visits Authorized [id number] 3 3 Reason Onset Date Comments Health Information 04/09/2023 Reason Comments Post Op Check Reason Onset Date Comments Health Information 05/04/2023 Reason Comments Post Op Check Specialty Diagnoses / Procedures Referred By Contac t Referred To Contact Radiology Diagnoses Cervical spondylosis with myelopathy Procedures XR C-SPINE FLEX/EXT ONLY 2 VIEWS Geri Vergara MD [address] [facility] [place] [address] S DIAGNOSTIC RADIOLOGY [address] [place] [address] Referral ID Status Reason Start Date Expiration Date Visits Re quested Visits Authorized [id number] Closed 06/16/2023 06/15/2024 1 1 Reason Comments Joint Pain Post Op Check Referral ID Status Reason Start Date Expiration Date V isits Requested Visits Authorized [id number] Pending Review 09/15/2023 09/14/2024 1 1 Reason Comments Follow-up Reason Onset Date Comments Restrictions 02/22/2024 Reason Comments Pain Reason Comments Pain Reason Onset Date Comments Eloquis clarification 01/17/2024 Reason Comments Follow-up INFORMATION SOURCE (unrecogn ized section and content) DATE CREATED AUTHOR 10/02/2022 [facility] DATE CREATED AUTHOR AUTHOR'S ORGANIZ ATION 11/11/2022 [facility] DATE CREATED AUTHOR AUTHOR'S ORGANIZ ATION 02/01/2024 [facility] DATE CREATED AUTHOR AUTHOR'S ORGANIZ ATION 04/21/2024 [facility] DATE CREATED AUTHOR AUTHOR'S ORGANIZ ATION 08/30/2024 [facility] DATE CREATED AUTHOR AUTHOR'S ORGANIZ ATION 09/27/2024 [facility] DATE CREATED AUTHOR AUTHOR'S ORGANIZ ATION 10/22/[address] [facility] DATE CREATED AUTHOR AUTHOR'S ORGANIZ ATION 10/27/2024 [facility] DATE CREATED AUTHOR AUTHOR'S ORGANIZ ATION 01/08/2025 [facility] DATE CREATED AUTHOR AUTHOR'S ORGANIZ ATION 02/14/2025 [facility] FOR RECORDS PERTAINING TO PATIENTS WHO ARE [...] BE BASED ON THE PRIMARY CLINICAL RECORDS. [facility] [employer] [facility]. provides no warranty or guarantee of the accuracy or completeness of information in this document.
== END 2025-02-15 13:04 | disposition home or self-care (01) ==
LOC: MAMMO 13:03
PROVIDERS: PCP Internal Medicine; Visit Provider Midwife
DX: Z12.31 Encounter for screening mammogram for malignant neoplasm of breast (principal); Z80.8 Family history of malignant neoplasm of other organs or systems
CPT/HCPCS: 77063; 77067

== ENCOUNTER 2025-04-13 12:06 | Outpatient (OUT) | payer MEDICARE, SELFPAY ==
--- OUTSIDE RECORDS SUMMARY | 2025-03-29 10:50 | XMS_ITS | Encounter Summary ---
Author Organization [facility] Address [address] [facility] [place] [id number] Care Team Providers Care Elderly Companion Name Role Phone Isaias Downs MD Unavailable [phone] Dee Mireles APRN-SHEILA Unavailable [phone] Reason for Referral * Diagnostic X-Ray (Routine) - ClosedSpecialtyDiagnoses / ProceduresReferred By ContactReferred To ContactRadiology Diagnoses Cervical spondylosis with myelopathy Procedures XR C-SPINE FLEX/EXT ONLY 2 VIEWS Isaias Downs MD [address] [place] [address] Phone: tel: fax: [facility] DIAGNOSTIC RADIOLOGY [address] [place] [address] [place] [address] Phone: tel: Referral IDStatusReasonStart DateExpiration DateVisits RequestedVisits [id number]/5/202511/ Reason for Visit * Diagnostic X-Ray (Routine) - ClosedSpecialtyDiagnoses / ProceduresReferred By ContactReferred To ContactRadiology Diagnoses Cervical spondylosis with myelopathy Procedures XR C-SPINE FLEX/EXT ONLY 2 VIEWS Isaias Downs MD [address] [place] [address] Phone: tel: fax: S DIAGNOSTIC RADIOLOGY [address] [place] [address] [place] [address] Phone: tel: Referral IDStatOlegario DateExpiration DateVisits RequestedVisits [id number]/5/202511/ Encounter Details DateTypeDepartmentCare Team (Latest Contact Info)Lerotpusxrr02/06/2025 10:50 AM EST - 03/29/2025 11:59 PM ESTHospital Encounter [facility] Radiology [address] [place] [id number] Cervical spondylosis with myelopathy Discharge Disposition: Discharge to Home Social History Tobacco UseTypesPacks/DayYears UsedDateSmoking Tobacco: FormerCigarettes Smokeless Tobacco: NeverAlcohol UseStandard Drinks/WeekCommentsNot Currently0 (1 standard drink = 0.6 oz pure alcohol)[facility] UtilitiesAnswerDate RecordedIn the past 12 months has the [employer], gas, oil, or water Queryly threatened to shut off services in your home?No04/10/2024Humiliation, Afraid, Rape, and Kick questionnaireAnswerDate RecordedWithin the last year, have you been afraid of your partner or ex-partner?Patient idwckuae52/18/2024Within the last year, have you been humiliated or emotionally abused in other ways by your partner or ex-partner?Patient jzgqbioz29/18/2024Within the last year, have you been kicked, hit, slapped, or otherwise physically hurt by your partner or ex-partner?Patient lyntfdty37/18/2024Within the last year, have you been raped or forced to have any kind of sexual activity by your partner or ex-partner?Patient declined 04/10/2024Social Connection and Isolation PanelAnswerDate RecordedIn a typical week, how many times do you talk on the phone with family, friends, or neighbors?More than three times a week04/10/2024How often do you get together with friends or relatives?Twice a week04/10/2024How often do you attend lutheran or jehovah's witness services?1 to 4 times per year04/10/2024o you belong to any clubs or organizations such as lutheran groups, unions, fraternal or athletic groups, or school groups?Yes04/10/2024How often do you attend meetings of the clubs or organizations you belong to?More than 4 times per year04/10/2024re you , , , , never , or living with a partner?Never dngqmno2904/10/2024Overall Financial Resource Strain (CARDIA)AnswerDate Recorded How hard is it for you to pay for the very basics like food, housing, medical care, and heating?Somewhat hard04/10/2024[facility] - Occupational Stress QuestionnaireAnswerDate RecordedDo you feel stress - tense, restless, nervous, or anxious, or unable to sleep at night because your mind is troubled all the time - these days?To some awpzck6504/10/2024Exercise Vital SignAnswerDate RecordedOn average, how many days per week do you engage in moderate to strenuous exercise (like a brisk walk)?3 days04/10/2024On average, how many minutes do you engage in exercise at this level?10 min04/10/2024Hunger Vital SignAnswerDate RecordedWithin the past 12 months, you worried that your food would run out before you got the money to buymore.Never true04/10/2024 Within the past 12 months, the food you bought just didn't last and you didn't have money to get more.Never true04/10/2024RAPARE - TransportationAnswerDate RecordedIn the past 12 months, has lack of transportation kept you from medical appointments or from getting medications?No04/10/2024In the past 12 months, has lack of transportation kept you from meetings, work, or from getting things needed for daily living?No04/10/2024Housing Stability Vital SignAnswerDate RecordedIn the last 12 months, was there a time when you were not able to pay the mortgage or rent on time?No09/29/2022In the last 12 months, how many places have you lived?In the last 12 months, was there a time when you did not have a steady place to sleep or slept in manvelelter (including now)?No 09/29/2022Housing Stability Vital SignAnswerDate RecordedIn the last 12 months, was there a time when you were not able to pay the mortgage or rent on time?No 04/10/2024In the past 12 months, how many times have you moved where you were living?t any time in the past 12 months, were you homeless or living in a penitentiary (including now)?No04/10/2024Utilities - HistoricalAnswerDate RecordedIn the past 12 months has the [employer], gas, oil, or water Queryly threatened to shut off services in your home?No04/10/2024EducationAnswerDate RecordedWhat is the highest level of school you have completed or the highest degree you have received?Master's degree (e.g., MA, MS, Yoni, MEd, MASTER PRINTER, IRENE) 09/29/2022Substance UseTypesUse/WeekCommentsNot CurrentlyCommentsNoSex and Gender InformationValueDate RecordedSex Assigned at PqdnqBtpvwk27/04/2023 5:40 PM EDTLegal PonShzyos25/03/2023 3:43 PM EDTGender BsampvafUbssbz70/04/2023 5:40 PM EDTSexual ZnnefcheramLtmsjifv55/04/2023 5:40 PM EDTdocumented as of this encounter Medications at Time of Discharge MedicationSigDispense QuantityRefillsLast FilledStart DateEnd Date atorvastatin (LIPITOR) 20 mg tablet Take 20 [...] 500 mg by mouth 2 times daily. cycloSPORINE (RESTASIS OP) by Ophthalmic route 2 times a day. cetirizine (ZyrTEC Allergy) 10 MG tablet Take 10 mg by mouth. Triamcinolone Acetonide (NASACORT NASAL) Use in each nostril. aspirin EC 81 MG tablet Take 81 mg by mouth daily. Calcium Citrate 150 MG CAPS Take by mouth 3 times daily. Cholecalciferol (Vitamin D) 50 MCG (2000 UT) TABS Take by mouth. Crane 3-6-9 Fatty Acids (TRIPLE OMEGA-3-6-9 ORAL) Take by mouth. Coenzyme Q10 (Co Q 10) 100 MG CAPS Take by mouth. levothyroxine (SYNTHROID) 100 MCG tablet Take 100 mcg by mouth daily.documented as of this encounter Plan of Treatment Not on file documented as of this encounter Procedures Procedure NamePriorityDate/TimeAssociated DiagnosisCommentsXR C-SPINE FLEX/EXT ONLY 2 RXMLHSbrblgx34/06/2025 11:40 AM EST Cervical spondylosis with myelopathy documented in this encounter Results * XR C-SPINE FLEX/EXT ONLY 2 VIEWS (03/29/2025 11:40 AM EST)Anatomical Region LateralityModalityXR C-spine, C-spineN/AComputed RadiographySpecimen (Source) Anatomical Location / LateralityCollection Method / VolumeCollection Time Received Time03/31/2025 11:10 AM EST Narrative 03/31/2025 11:13 AM EST EXAMINATION: XR C-SPINE FLEX/EXT ONLY 2 VIEWSPRO 03/29/2025 11:40 AM CLINICAL HISTORY: laminoplasty ASSOCIATED DIAGNOSIS: Cervical spondylosis with myelopathy ORDERING PROVIDER: ISAIAS DOWNS TECHNMONY NOTE: COMPARISON: XR C-SPINE FLEX/EXT ONLY 2 VIEWS 04/13/2024 11:56 AM FINDINGS/IMPRESSION: On the lateral view the C-spine is visible to the C7 level. Mild stepwise retrolisthesis at C4-C7 and mild anterolisthesis at C7-T1 without dynamic instability. Postsurgical changes of C4-C7 left laminoplasty without radiographic evidence for hardware complication. Decrease osseous mineralization. The vertebral bodies appear intact. Multilevel cervical spond ylosis. No prevertebral soft tissue swelling. MACRO: None Procedure Note Jarrett Jackson DO - 03/31/2025 EXAMINATION: XR C-SPINE FLEX/EXT ONLY 2 VIEWSPRO 03/29/2025 11:40 AM CLINICAL HISTORY: laminoplasty ASSOCIATED DIAGNOSIS: Cervical spondylosis with myelopathy ORDERING PROVIDER: ISAIAS DOWNS TECHNMONY NOTE: COMPARISON: XR C-SPINE FLEX/EXT ONLY 2 VIEWS 04/13/2024 11:56 AM FINDINGS/IMPRESSION: On the lateral view the C-spine is visible to the C7 level. Mild stepwise retrolisthesis at C4-C7 and mild anterolisthesis at C7-M7ogdwbix dynamic instability. Postsurgical changes of C4-C7 leftlaminoplasty without radiographic evidence for hardware complication.Decrease osseous mineralization. The vertebral bodies appear intact.Multilevel cervical spondylosis. No prevertebral soft tissue swelling. MACRO: None Authorizing ProviderResult TypeResult StatusTimjonathan BLANTON DIAGNOSTIC X-RAYFinal Result documented in this encounter Visit Diagnoses Diagnosis Cervical spondylosis with myelopathy documented in this encounter Care Teams Team MemberRelationshipSpecialtyStart DateEnd Date Isaias Downs MD [address] [place] [address] PhysicianOrthopaedic Surgery09/26/22 Dee Mireles, DIRECTOR OF DIVERSITY AND INCLUSION-LMSW [address] [place] [address] DGJJwbwtvvdnuhugg34/4/23documented as of this encounter
--- OUTSIDE RECORDS SUMMARY | 2025-04-01 19:07 | XMS_ITS | Continuity of Care Document ---
Author Organization [facility] Address [address] [place] [address] Phone Care Team Providers Care Government Services Professional Name Role Phone Tammy Mckeon APRN Attending Provider NON STAFF Primary Care Provider Unavailabl e Care Teams Patient Care Team Team Status: Active Member Role/Relationship Status Dates NON STAFF Primary Care Provider Active Visit Care Team Team Status: Inactive Member Role/Relationship Status Dates Tammy Mckeon APRN Attending Provider Active Start: April 01, 2025 End: April 01, 2025NON STAFFPrima Care ProviderActiveStart: April 01, 2025 End: April 01, 2025 Visit Care Team Team Status: Inactive Member Role/Relationship Status Dates NON STAFF Primary Care Provider Active Start: April 01, 2025 End: April 01, 2025Fortino Fontaine ProviderActiveStart: April 01, 2025 End: April 01, 2025 Chief Complaint and Reason for Visit Chief Complaint Admit Date Left shoulder, left knee pain after fall April 01, 2025 1:18pm R07.89 - Other chest pain April 01, 2025 2:01pm Reason for Visit Admit Date Contusion of left chest wall March 1:18pm Allergies, Adverse Reactions, Alerts Allergen Type Severity Reaction Last Updated Verified Status No Known Allergies Allergy Unknown April 01, 2025 1:15pmYesActive Social History Smoking Status Unknown if ever smoked Observation Status Observation Response Date of Response Legal Sex Female (finding) Sex Assigned At BirthFemaleMay 1950 Problems Active Problems Problem Diagnosis/Recorded Date Onset Date Stat us Rib pain on left side April 01, 2025 1:55pm Unknow n Active Contusion of left chest wall April 01, 2025 2:47pm Unknown Active Medications Medication Status Dose Units Route Directions Qty Days Refills S tart Date Stop Date End Date Reason(s) Instructions Adherence Metformin 500 mg tablet Active MGPONovember 2024 12:00amUnknownCarvedilol 25 mg tabletActiveMGPONovember 2024 12:00amUnknownAtorvastatin 20 mg tabletActiveMGPONovember 2024 12:00amUnknownMeloxicam 15 mg tabletActiveMGPONovember 2024 12:00amUnknown Omeprazole 40 mg capsule,delayed release(DR/EC)ActiveMGPONovember 2024 12:00amUnknownLevothyroxine 100 mcg tabletActiveMCGPONovember 2024 12:00am UnknownValsartan 320 mg tabletActiveMGPONovember 2024 12:00amUnknown Levofloxacin 500 mg tabletActiveMGPONovember 2024 12:00amUnknownEstradiol 0.01 % (0.1 mg/gram) creamActiveVAGINALApril 01, 2025 12:00amUnknownUrsodiol 500 mg tabletActiveMGPONovember 2024 12:00amUnknownHydrochlorothiazide 12.5 mg tabletActiveMGPONovember 2024 12:00amUnknown Procedures Procedure Date Performed Status XR ribs LT min 3V w CXR1V* April 01, 2025 2: 01pm completed Relevant Diagnostic Tests and/or Laboratory Data Diagnostic Imaging Reports Author Magnus Schneider [facility]Report Date/TimeNovember 2024 2:39pm [facility] [place] [address] XRay Report Signed Patient: Ashlee Banerjee MR#: [id number] : 1950 Acct:[id number] Age/Sex: 74 / F ADM Date: 5 Loc: XDUCLY Room: Type: [facility] CLI Attending Dr: Tammy Mckeon APRN Copies to: Tammy Mckeon APRN~ Ordering Provider: Tammy Mckeon APRN Date of Service: 04/01/25 XR/XR ribs LT min 3V w CXR1V*: R07.89 - Other chest pain XR ribs LT min 3V w CXR1V* 04/01/2025 2:21 PM SIGNS AND SYMPTOMS: Fall onto left side with left mid anterior rib pain PROTOCOL: Frontal radiograph the chest with oblique radiographs of the left. COMPARISON: None FINDINGS: The trachea is midline. The heart and mediastinal structures are within normal limits. The lung parenchyma is clear. The bony thorax is intact. XR/XR ribs LT min 3V w CXR1V* IMPRESSION: No acute cardiopulmonary pathology. No acute displaced rib fracture. Impression dictated by: Magnus Schneider M.D. 04/01/2025 2:39 PM Dictation Location: [place] [address] Transcribed By: [facility] 04/01/25 1439 Dictated By: Magnus Schneider II, MD 04/01/25 1437 Signed By: <Electronically signed by Magnus Schneider II, MD in OV> 04/01/25 1439 Vital Signs Vital Reading Result Reference Range Collection Date/Time Height 61 [in_i] April 01, 2025 1:73oiHcflxq26.24 kgApril 01, 2025 1:28pmBody Temperature 97.8 [degF]97.6-99.0April 01, 2025 1:28pmHeart Rate98 /ffp30-656UszzzrwaApril 01, 2025 1:28pmRespiratory rate19 /jfq11-05UlggedzuApril 01, 2025 1:28pmOxygen saturation by Pulse qqcaubgl31 %95-100April 01, 2025 1:28pmBP Istwvxwl587 mm[Hg]100-140April 01, 2025 1:28pmBP Fdsafoqap81 mm[Hg]60-100April 01, 2025 1:28pmBMI (Body Mass Index)29.7 kg/b0TaqfktyrApril 01, 2025 1:28pm Advance Directives Advance Directive Response Recorded Date/ Time Advance Directives No December 07 7:00am Insurance Providers Guarantor Stephanie Ramos Address [address] [place] [phone] Info.Home Phone: Coverage Status Update:2025 Payer Group Member ID Coverage Type Subscriber Relationship to Subscriber Effective Date Expiration Date Medicare [id number] Reddy Id: [id number] [address] [facility] [address] Home Phone: [employer] Advantage PFFS [id number] Reddy Id: [id number] [address] [facility] [address] Home Phone: Self Encounters Encounter Location(s) Arrival/Admit Date Discharge/Departure Date Discharge/Departure Disposition Provider(s) Departed Physician/ Provider Office Visit -[facility] April 01, 2025 1:18pm April 01, 2025 2:48pm Discharged to home care or self care (routine discharge) Stephanie Thomas APRN Departed Clinical -[facility] April 01, 2025 2:01pm April 01, 2025 2:02pm Discharged to home care or self care (routine discharge) Stephanie Thomas APRN Recent Diagnosis Onset Date Admit Date Contusion of left chest wall Unknown Nov emb2024 1:18pm Assessments Diagnosis Onset Date Resolution Status Admit Date Contusion of left chest wall acuteNov2024 1:18pm Plan of Treatment Author Tammy Mckeon [facility]AuthoredNov2024 2:48pmX-ray of left rib area without any acute fracture. Discussed diagnosis of contusion. Patient is on meloxicam regularly. May continue Tylenol as needed. Recommend ice, rest. May brace area with pillow to encourage deep breathing or coughing if needed. Recommend follow-up with PCP if not gradually improving over the next week. Patient verbalized understanding Future Tests Future scheduled test information is unavailable Pending Tests Pending diagnostic test information is unavailable Future Visits Future appointment information is unavailable Future Procedures Future procedure information is unavailable Future Medications Future medication information is unavailable Patient Instructions Patient instructions are unavailable
--- OUTSIDE RECORDS SUMMARY | 2025-04-11 09:50 | XMS_ITS | Encounter Summary ---
Author Organization [facility]enio [facility] Address [address], [address] [place] [address] Care Team Providers Care Business Information Analyst Name Role Phone Magnus Shay MD Primary Care Provider [phone] Reason for Visit * ReasonCommentsMedicare AWV Encounter Details DateTypeDepartmentCare Team (Latest Contact Info)Lhmwqenujtt18/19/2025 9:50 AM ESTOffice Visit Magnus Shay MD [address] [place] [phone] Magnus Shay MD [address], [place] [address] Medicare annual wellness visit, subsequent (Primary Dx); Type 2 diabetes mellitus without complication, without long-term current use of insulin (HCC) / Metformin ER Social History Tobacco UseTypesPacks/DayYears UsedDateSmoking Tobacco: FormerCigarettes0.571196 - 1974Smokeless Tobacco: Never Tobacco Cessation:Counseling Given: Not Answered Comments:smoked socially on occassion until 1999 Alcohol UseStandard Drinks/WeekCommentsNot Currently0 (1 standard drink = 0.6 oz pure alcohol)socialHumiliation, Afraid, Rape, and Kick questionnaireAnswerDate RecordedWithin the last year, have you been afraid of your partner or ex-partner?No03/27/2024Within the last year, have you been humiliated or emotionally abused in other ways by your partner or ex-partner?No03/27/2024 Within the last year, have you been kicked, hit, slapped, or otherwise physically hurt by your partner or ex-partner?No03/27/2024Within the last year, have you been raped or forced to have any kind of sexual activity by your part ner or ex-partner?No03/27/2024Social Connection and Isolation PanelAnswerDate RecordedIn a typical week, how many times do you talk on the phone with family, friends, or neighbors?More than three times a week03/27/2024How often do you get together with friends or relatives?More than three times a week03/27/2024How often do you attend roman catholic or confucianist services?1 to 4 times per year03/27/2024 Do you belong to any clubs or organizations such as roman catholic groups, unions, [employer] or athletic groups, or school groups?Yes03/27/2024How often do you attend meetings of the clubs or organizations you belong to?More than 4 times per year03/27/2024re you , , , , never , or living with a partner?Never fkbmjiz6203/27/2024UDIT-CAnswerDate RecordedQ1: How often do you have a drink containing alcohol?Never03/27/2024Q2: How many drinks containing alcohol do you have on a typical day when you are drinking? Patient does not drink03/27/2024Q3: How often do you have six or more drinks on one occasion?Never03/27/2024HQ-2AnswerDate RecordedPHQ-9 Total Pyesg26506/04/2024 Exercise Vital SignAnswerDate RecordedOn average, how many days per week do you engage in moderate to strenuous exercise (like a brisk walk)?3 days03/27/2024On average, how many minutes do you engage in exercise at this level?20 min 03/27/2024RAPARE - TransportationAnswerDate RecordedIn the past 12 months, has lack of transportation kept you from medical appointments or from getting medications?No09/28/2024In the past 12 months, has lack of transportation kept you from meetings, work, or from getting things needed for daily living?No 09/28/2024Housing Stability Vital SignAnswerDate RecordedUnable to Pay for Housing in the Last YearNot on file10/01/2023Number of Places Lived in the Last YearNot on file10/01/2023In the last 12 months, was there a time when you did not have a steady place to sleep or slept in ashelter (including now)?No 10/01/2023Housing Stability Vital SignAnswerDate RecordedIn the last 12 months, was there a time when you were not able to pay the mortgage or rent on time?No 04/11/2025In the past 12 months, how many times have you moved where you were living?t any time in the past 12 months, were you homeless or living in a care home (including now)?No04/11/2025Humiliation, Afraid, Rape, and Kick questionnaireAnswerDate RecordedWithin the last year, have you been afraid of your partner or ex-partner?No04/11/2025Within the last year, have you been humiliated or emotionally abused in other ways by your partner or ex-partner?No 04/11/2025Within the last year, have you been kicked, hit, slapped, or otherwise physically hurt by your partner or ex-partner?No04/11/2025Within the last year, have you been raped or forced to have any kind of sexual activity by your part ner or ex-partner?No04/11/2025Social Connection and Isolation PanelAnswerDate RecordedIn a typical week, how many times do you talk on the phone with family, friends, or neighbors?More than three times a week04/11/2025How often do you get together with friends or relatives?Twice a week04/11/2025How often do you attend roman catholic or confucianist services?Never04/11/2025Do you belong to any clubs or organizations such as roman catholic groups, unions, fraternal or athletic groups, or school groups?Yes04/11/2025How often do you attend meetings of the clubs or organizations you belong to?More than 4 times per year04/11/2025re you , , , , never , or living with a partner?Never qbryctr9504/11/2025UDIT-CAnswerDate RecordedQ1: How often do you have a drink containing alcohol?Never04/11/2025Q2: How many drinks containing alcohol do you have on a typical day when you are drinking?Patient does not drink04/11/2025Q3: How often do you have six or more drinks on one occasion?Never04/11/2025Overall Financial Resource Strain (CARDIA)AnswerDate RecordedHow hard is it for you to pay for the very basics like food, housing, medical care, and heating?Not hard at all04/11/2025[facility] - Occupational Stress QuestionnaireAnswerDate RecordedDo you feel stress - tense, restless, nervous, or anxious, or unable to sleep at night because yourmind is troubled all the time - these days?To some yjgmye8004/11/2025Exercise Vital SignAnswerDate Recorded On average, how many days per week do you engage in moderate to strenuous exercise (like a brisk walk)?0 days04/11/2025On average, how many minutes do you engage in exercise at this level?0 min04/11/2025Hunger Vital SignAnswerDate RecordedWithin the past 12 months, you worried that your food would run out before you got the money to buymore.Never true04/11/2025Within the past 12 months, the food you bought just didn't last and you didn't have money to get more.Never true04/11/2025PRAPARE - TransportationAnswerDate RecordedIn the past 12 months, has lack of transportation kept you from medical appointments or from getting medications?No04/11/2025In the past 12 months, has lack of transportation kept you from meetings, work, or from getting things needed for daily living?No04/11/2025HC UtilitiesAnswerDate RecordedIn the past 12 months has the electric, gas, oil, or water company threatened to shut off services in your home?No04/11/2025Interpersonal Safety Domain Source: IP Abuse Screening AnswerDate RecordedPhysical mwsmkRymloq72/08/2025Verbal uvvosBunfrj13/08/2025 Emotional hnotgWcieqr58/08/2025Financial bshgtZjtmju05/08/2025Sexual abuseDenies 09/28/2024CommentsNoSex and Gender InformationValueDate RecordedSex Assigned at JhhulDfogvw24/27/2020 5:43 PM EDTLegal CmhTmkuuo32/10/2013 10:08 AM ESTGender YasdocguByeyub76/27/2020 5:43 PM EDTSexual OrientationStraight 10/18/2019 5:43 PM EDTdocumented as of this encounter Last Filed Vital Signs Vital SignReadingTime TakenCommentsBlood Uskmtghx130/6904/11/2025 9:43 AM EST Ztqon902704/11/2025 9:43 AM ESTTemperature--Respiratory Rate--Oxygen Saturation-- Inhaled Oxygen Concentration--Zhgtta04.5 kg (162 lb)04/11/2025 9:43 AM ESTHeight 154.9 cm (5' 1 )04/11/2025 9:43 AM ESTBody Mass Index30.6104/11/2025 9:43 AM EST documented in this encounter Functional Status * AUDIT-C ScoreAnswerDate of AmnojqxydoLykgiy766/19/2025 10:38 AM Dulce Almeida MA * QuestionAnswerDate of AssessmentAuthorQ1: How often do you have a drink containing alcohol?Never04/11/2025 10:38 AM Dulce Almeida MAQ2: How many drinks containing alcohol do you have on a typical day when you are drinking? Patient does not drink04/11/2025 10:38 AM Dulce Almeida MAQ3: How often do you have six or more drinks on one occasion?Never04/11/2025 10:38 AM Dulce Almeida MA documented as of this encounter Patient Instructions * Patient Instructions* Magnus Shay MD - 04/11/2025 10:09 AM EST A1c blood test Talk to Dr. Patino. I am inclined to have him see you and you can get rid of [place] Try the muscle relaxant 2 mg at bedtime. I think he will be fine documented in this encounter Progress Notes * Magnus Shay MD - 04/11/2025 9:51 AM EST Medicare Annual Wellness Visit Ashlee Banerjee is here for Medicare AWV Assessment & Plan Medicare annual wellness visit, subsequent Type 2 diabetes mellitus without complication, without long-term current use of insulin (HCC) / Metformin ER - Hemoglobin A1C; Future Return in 1 year (on 04/11/2026) for Medicare AW, check up 6 months. Subjective Wellness Patient's complete Health Risk Assessment and screening values have been reviewed and are found in Flowsheets. The following problems were reviewed today and where indicated follow up appointments were made and/or referrals ordered. Positive Risk Factor Screenings with Interventions: Fall Risk: Do you feel unsteady or are you worried about falling? : (!) yes 2 or more falls in past year?: no Fall with injury in past year?: (!) yesInterventions: Reviewed medications, home hazards, visual acuity, and co-morbidities that can increase risk for falls Patient declines any further evaluation or treatment General HRA Questions: Select all that apply: (!) New or Increased PainInterventions - Pain: See above Inactivity: On average, how many days per week do you engage in moderate to strenuous exercise (like a brisk walk)?: 0 days (!) Abnormal On average, how many minutes do you engage in exercise at this level?: 0 min Advanced Directives: Do you have a Living Will?: (!) No Intervention: has NO advanced directive - information provided Advance Care Planning Discussed the patient???s choices for care and treatment preferences in case of a health event thatadversely affects decision-making abilities or is life- limiting. Recommended the patient document care preferences in state-specific advance directives. Also reviewed the process of designating a trusted capable adult as an Agent (or Health Care Power of Silk Screen Painter) to make health care decisions for the patient if the patient becomes unable due to incapacity. Patient was asked to complete advance directive forms, if not already done, and to provide a dated, signed and witnessed (or notarized) copy, per the forms' requirements, to the practice office. Time spent (minutes): 20 minutes Objective Vitals: 04/11/25 0943 BP: (!) 143/69 Pulse: 81 Weight: 73.5 kg (162 lb) Height: 1.549 m (5' 1 ) Body mass index is 30.61 kg/m??. General Appearance: alert and oriented to person, place and time, well developed and well- nourished, in no acute distress Skin: warm and dry, no rash or erythema Head: normocephalic and atraumatic Eyes: pupils equal, round, and reactive to light, extraocular eye movements intact, conjunctivae normal ENT: tympanic membrane, external ear and ear canal normal bilaterally, nose without deformity, nasal mucosa and turbinates normal without polyps Neck: supple and non-tender without mass, no thyromegaly or thyroid nodules, no cervical lymphadenopathy Pulmonary/Chest: clear to auscultation bilaterally- no wheezes, rales or rhonchi, normal air movement, no respiratory distress Cardiovascular: normal rate, regular rhythm, normal S1 and S2, no murmurs, rubs, clicks, or gallops, distal pulses intact, no carotid bruits Extremities: no cyanosis, clubbing or edema Musculoskeletal: normal range of motion, no joint swelling, deformity or tenderness Neurologic: reflexes normal and symmetric, no cranial nerve deficit, gait, coordination and speech normal Allergies Allergen Reactions Pcn [Penicillins] Swelling Cyclobenzaprine Hallucinations Leucine Morphine Rash Nickel Rash Sulfites SNEEZING, RUNNY NOSE Prior to Visit Medications Medication Sig Taking? Authorizing Provider tiZANidine (ZANAFLEX) 2 MG tablet Take 1 tablet by mouth nightly as needed (neck muscle) Yes Magnus Shay MD Carboxymethylcellulose Sodium (THERATEARS OP) Apply to eye Yes Eduarda Lockett MD aspirin 81 MG chewable tablet Take 1 tablet by mouth daily Yes Eduarda Lockett MD meloxicam (MOBIC) 15 MG tablet TAKE 1 TABLET BY MOUTH EVERY DAY Yes Magnus Shay MD polyethylene glycol (GLYCOLAX) 17 g packet Take 1 packet by mouth daily as needed for Constipation Yes Eduarda Lockett MD clindamycin (CLEOCIN) 150 MG capsule Take 4 tabs One hr prior to dental procedure Yes Magnus Shay MD carvedilol (COREG) 25 MG tablet TAKE 1 TABLET BY MOUTH TWICE A DAY Yes Magnus Shay MD valsartan (DIOVAN) 320 MG tablet Take 1 tablet by mouth daily Yes Magnus Shay MD estradiol (ESTRACE VAGINAL) 0.1 MG/GM vaginal cream insert one inch of cream inside the vagina and place an additional dime sized amount to the urethra and inner labia every night for two weeks then three nights per week thereafter. Do NOT use plastic applicator. Yes Sandra Alvares, AGRICULTURE SPECIALIST - BINDING STITCHER hydroCHLOROthiazide 12.5 MG tablet Take 1 tablet by mouth daily Yes Magnus Shay MD omeprazole (PRILOSEC) 40 MG delayed release capsule Take 1 capsule by mouth daily Yes Magnus Shay MD metFORMIN (GLUCOPHAGE) 500 MG tablet Take 1 tablet by mouth 2 times daily Yes Magnus Shay MD coenzyme Q10 60 MG CAPS Take 1 tablet by mouth daily Yes Eduarda Lockett MD levothyroxine (SYNTHROID) 100 MCG tablet TAKE 1 TABLET BY MOUTH EVERY DAY Yes Magnus Shay MD atorvastatin (LIPITOR) 20 MG tablet TAKE 1 TABLET BY MOUTH EVERY DAY Yes Magnus Shay MD ursodiol (ACTIGALL) 500 MG tablet Take 1 tablet by mouth 2 times daily Yes Eduarda Lockett MD Probiotic Product (PROBIOTIC PO) Take 1 tablet by mouth daily Yes Eduarda Lockett MD cetirizine (ZYRTEC) 10 MG tablet Take 1 tablet by mouth daily Yes Eduarda Lockett MD Vit-Fe Fumarate-FA ( VITAMIN PO) Take by mouth daily Yes Eduarda Lockett MD Triamcinolone Acetonide (NASACORT AQ NA) by Nasal route daily One spray in each nostril once a day Yes Eduarda Lockett MD CycloSPORINE (RESTASIS OP) Apply 1 drop to eye in the morning and 1 drop in the evening. Both Eyes.Yes Eduarda Lockett MD NONFORMULARY Take 1 tablet by mouth daily RESTORE OCULAR Yes Eduarda Lockett MD calcium carbonate 600 MG TABS tablet Take 1 tablet by mouth 3 times daily Yes Eduarda Lockett MD vitamin D (CHOLECALCIFEROL) 1000 UNIT TABS tablet Take 1 tablet by mouth in the morning and 1 tablet in the evening. Yes Provider, MD Cesar Lerneram (Including outside providers/suppliers regularly involved in providing care): Patient Care Team: Magnus Shay MD as PCP - General (Internal Medicine) Magnus Shay MD as PCP - Empaneled Provider Recommendations for Preventive Services Due: see orders and patient instructions/AVS. Recommended screening schedule for the next 5-10 years is provided to the patient in written form: see Patient Instructions/AVS. Reviewed and updated this visit: Tobacco Allergies Meds Med Hx Surg Hx documented in this encounter Plan of Treatment DateTypeDepartmentCare Team (Latest Contact Info)Aqwljmsobdc72/22/2026 1:00 PM ESTOffice Visit [facility] Part of [address] [place] [phone] Mj Alvarenga MD [address] [place] [address], [address] [place] [phone] sympotm check06/26/2025 11:30 AM ESTOffice Visit [facility] [address] [address] Sandra Alvares, AGRICULTURE SPECIALIST - [address] [phone] 3 months f/u with fihkca0210/02/2025 1:30 PM EDTOffice Visit Magnus Shay MD [address] [place] [address] [place] [phone] Magnus Shay MD [address] [place] [address] [place] [address] 6 month gc04/24/2026 11:00 AM ESTOffice Visit Magnus Shay MD [address] [place] [address] [place] [phone] Magnus Shay MD [address] [place] [address] [place] [id number] awv12/24/2026 2:15 PM EDTOffice Visit [facility] OBSTETRICS & GYNECOLOGY Part of [address] [place], [place] [phone] Destinee Coughlin, WM - [address] [place] [address] yearly--last 12/19/2024--MedicareNameTypePriorityAssociated DiagnosesOrder ScheduleHemoglobin X0WNvmMmiemow Type 2 diabetes mellitus without complication, without long-term current use of insulin (HCC) / Metformin ER Expected: 04/11/2025, Expires: 04/11/2026documented as of this encounter Visit Diagnoses Diagnosis Medicare annual wellness visit, subsequent- Primary Routine general medical examination at a health care facility Type 2 diabetes mellitus without complication, without long-term current use of insulin (HCC) / Metformin ER documented in this encounter Additional Health Concerns AssessmentNoted TimeA fall risk assessment has been completed for the patient 04/04/2025 5:47 PM ESTA Body Mass Index follow-up plan has been documented for the vkvvtrh8811/18/2021 4:24 PM EDTdocumented as of this encounter Care Teams Team MemberRelationshipSpecialtyStart DateEnd Date Magnus Shay MD [address] [place] [address], [address] [place], [place] [phone] PCP - GeneralInternal Medicine07/20/14documented as of this encounter
--- OUTSIDE RECORDS SUMMARY | 2025-04-13 12:14 | XMS_ITS | Clinical Summary ---
Author Organization [facility] Address [address] [place] [address] [place] [address] Care Team Providers Care Physician Scribe Name Role Phone Andrae Patino MD Unavailable Magnus Shay MD Primary Care Provider [phone] Allergies Active AllergyReactionsCriticalityNoted LfunTnbwqmlgPstwsirhBzlw21/30/2020Nickel Rash05/22/20202712VazbedcwwpvMgllzblw86/30/2020SulfitesItching,Lmyjspkl21/30/2020 Medications MedicationSigDispense QuantityRefillsLast FilledStart DateEnd DateStatus Synthroid 100 MCG tablet Take 1 tablet by mouth daily.04/30/2020Active atorvastatin 20 MG tablet Take 1 tablet by mouth daily every morning.04/30/2020Active metFORMIN 500 MG tablet Take 1 tablet by mouth 2 times daily.05/07/2020Active ursodiol 300 MG capsule Take 1 capsule by mouth 4 times daily. Takes 2 capsules in the am and 2 capsules in the pm04/12/2020Active cyclosporin 0.05 % Emulsion ophthalmic suspension 1 drop 2 times daily.Active Vit-Fe Fumarate-FA ( VITAMIN PO) Take 1 tablet by mouth daily.Active Cholecalciferol (VITAMIN D3 PO) Take 1 tablet by mouth daily.Active Coenzyme Q10 (CO Q 10 PO) Take 1 tablet by mouth daily.Active Triamcinolone Acetonide (NASACORT AQ NA) by Nasal route.Active omega-3 acid ethyl esters 1 g capsule Take 2 capsules by mouth daily.Active cetirizine 10 MG tablet Take 1 tablet by mouth daily.Active olopatadine (Pataday) 0.1 % Solution ophthalmic solution 1 drop 2 times daily as needed for Allergies.Active meloxicam (Mobic) 15 MG tablet Take 0.5 tablets by mouth daily.Active Valsartan 160 MG tablet Take 2 tablets by mouth daily.Active hydroCHLOROthiazide 12.5 MG capsule Take 1 capsule by mouth daily.Active carveDILOL 25 MG tablet Take 1 tablet by mouth 2 times daily with meals.Active traZODone 50 MG tablet Take 0.5 tablets by mouth At bedtime.Active Active Problems ProblemNoted DateDiagnosed DateObesity (BMI 30.0-34.9)05/22/2020 Family History Medical HistoryRelationNameCommentsAlzheimer'sFatherHeart Disease - OtherFather Myocardial InfarctionMaternal GrandfatherAlzheimer'sMotherDiabetesMother HypertensionMotherThyroid DiseaseSisterRelationNameStatusCommentsFatherDeceased Maternal GrandfatherDeceasedMaternal GrandmotherDeceasedMotherDeceasedPaternal GrandfatherDeceasedSisterAlive Social History Tobacco UseTypesPacks/DayYears UsedDateSmoking Tobacco: FormerCigarettes Smokeless Tobacco: NeverAlcohol UseStandard Drinks/WeekCommentsNot Currently0 (1 standard drink = 0.6 oz pure alcohol)CommentsNoSex and Gender InformationValueDate RecordedSex Assigned at BirthNot on fileLegal SexFemale 05/29/2016 5:30 PM ESTGender VychkwqdVhjswt63/20/2024 9:47 PM EDTSexual JdqpqcsqdecSfhpnicr44/20/2024 9:47 PM EDT Last Filed Vital Signs Vital SignReadingTime TakenCommentsBlood Syxvgilm070/6404 2:30 PM EDT Ppqgp2002 2:30 PM ZGZUbhlupzmmmv88.9 ??C (98.4 ??F)11/29/2023 1:17 PM EDTRespiratory Czyu421609/20/2024 1:00 PM EDTOxygen Hdkimdfgxg74%09/20/2024 2:30 PM EDTInhaled Oxygen Concentration--Xxzikz23.6 kg (138 lb)11/29/2023 1:17 PM EDT Zbtqhd121.9 cm (5' 1 )11/29/2023 1:17 PM EDTBody Mass Index26.0711/29/2023 1:17 PM EDT Plan of Treatment Health MaintenanceDue DateLast DoneCommentsDEXA SCAN FFQJEAUAJY20/30/1950 HEPATITIS C VIRUS NLKLRBMVM04/30/8636VUFQIRZ92/30/5447GHC20 1949TDAP (ADULT) 1968CERVICAL CANCER SCREENING YQXYKNDRHW39/30/1971LIPID SCREENING 1989HEP B VACCINE (1 of 3 - Risk 3-dose series)2009ZOSTER (SHINGLES) VACCINE (2 of 3), 02/26/2012COLORECTAL CANCER SCREENING NLRNPAJBOU77/23/202203/MAMMOGRAM SCREENING VLZTOODGUC20/05/2023 12/26/2021, 12/26/2020, 12/07/20171873CJFHTODHA48/08/202507/12/2023, 11/23/2022, 05/22/2020COVID-19 VACCINE ( season)/08/2023, 08/13/2023, 09/27/2022, Additional history existsINFLUENZA VACCINE (#1)509/, 02/02/2023, 02/01/2022, Additional history existsPNEUMOCOCCAL VACCINE SERIES Lzzybsgkp78/08/2018, 03/04/2016, 05/01/2015, Additional history existsRSV XIRVPZPYadjerbry36/03/2023 Procedures Procedure NamePriorityDate/TimeAssociated DiagnosisCommentsCHEM 6 (LYTES, BUN CREA)Epuzpea9211/29/2023 2:44 PM EDT Primary biliary cholangitis Abnormal LFTs Splenomegaly OUTSIDE FPHDSJJIKVO95/23/2021from Last 3 Months or Most Recently Relevant to Health Maintenance Results * (ABNORMAL) CHEM 6 (LYTES, BUN CREA) (11/29/2023 2:44 PM EDT)ComponentValueRef RangeTest MethodAnalysis TimePerformed AtPathologist GwebqgugjZVK68(H)7 - 25 mg/dL11/29/2023 5:01 PM [facility]ATORYSodium 940080 - 145 mmol/L11/29/2023 5:01 PM [facility] LABORATORYPotassium4.13.5 - 5.0 mmol/L11/29/2023 5:01 PM [facility] HZPCVMVZGIMenwajwh43190 - 108 mmol/L11/29/2023 5:01 PM [facility] RUOUEERCHRWN14030 - 31 mmol/L11/29/2023 5:01 PM [facility] LABORATORYCreatinine0.990.50 - 1.20 mg/dL11/29/2023 5:01 PM [facility] Bun/Crea Tftnx434111/29/2023 5:01 PM [facility] LABORATORYAnion Pyc881 - 17 mmol/L11/29/2023 5:01 PM [facility] LABORATORYeGFR, CKD-EPI, Kcyfdh35>=60 mL/min/1.72n12511/29/2023 5:01 PM [facility] LABORATORYComment:Reported eGFR is based on the CKD-EPI 2020 equation using creatinine, age, and sex.Specimen (Source)Anatomical Location / LateralityCollection Method / VolumeCollection TimeReceived TimeBloodVenipuncture / Kkkyivr2111/29/2023 2:44 PM EDT11/29/2023 2:46 PM EDT Narrative Authorizing ProviderResult TypeResult StatusSemilagro Cordova MDCHEMISTRY ORDERABLES Final ResultPerforming OrganizationAddressCity/State/ZIP CodePhone Number [facility] [address] [address] * COLONOSCOPY (OUTSIDE) (08/13/2020)Anatomical RegionLateralityModalityOther Specimen (Source)Anatomical Location / LateralityCollection Method / Volume Collection TimeReceived Time08/13/2020 Narrative Authorizing ProviderResult TypeResult StatusOther OtherGI/BRONCH PROCEDURE ORDERABLESFinal Result from Last 3 Months or Most Recently Relevant to Health Maintenance Insurance Care Teams Team MemberRelationshipSpecialtyStart DateEnd Date Magnus Shay MD [address] [place] [address] [place] [address] PCP - GeneralInternal Medicine11/23/22 Andrae Patino MD [address] [facility] [place] [address] Gastroenterology11/23/22
--- OUTSIDE RECORDS SUMMARY | 2025-04-13 12:14 | XMS_ITS | Clinical Summary ---
Author Organization [facility] Address [address] [facility] [place] [address] Care Team Providers Care Stacker And Sorter Operator Name Role Phone Isaias Downs MD Unavailable [phone] Dee Mireles Unavailable [phone] Source Comments The following information is NOT included in Care Everywhere downloads:Psychiatric notes, ECG results, Cardiac Rehab notes, Pulmonary Function notes, data from [employer] (includes but not limited toPregnancy data,audiograms, eye exams, pre-surgical evaluation notes, well-child exam data).[facility] Allergies Active AllergyReactionsCriticalityNoted DateCommentsCyclobenzaprine Modikfmvhkbjgt09/21/6398Hvvlvler14/16/2096Fqzhhc19/16/9793Eakpakpzlym04/16/2023 Ziufrgly65/16/2023 Medications MedicationSigDispense QuantityRefillsLast FilledStart DateEnd DateStatus levothyroxine (SYNTHROID) 100 MCG tablet Take 100 mcg by mouth daily.Active atorvastatin (LIPITOR) 20 mg tablet Take 20 mg by mouth daily.Active hydrochlorothiazide (MICROZIDE) 12.5 MG capsule Take 12.5 mg by mouth daily.Active CARvedilol (COREG) 25 MG tablet Take 25 mg by mouth 2 times daily.Active valsartan (DIOVAN) 320 MG tablet Take 320 mg by mouth daily.Active metformin (GLUCOPHAGE) 500 MG tablet Take 500 mg by mouth 2 times daily (with meals).Active ursodiol (ACTIGALL) 250 MG TABS tablet Take 500 mg by mouth 2 times daily.Active cycloSPORINE (RESTASIS OP) by Ophthalmic route 2 times a day.Active cetirizine (ZyrTEC Allergy) 10 MG tablet Take 10 mg by mouth.Active Triamcinolone Acetonide (NASACORT NASAL) Use in each nostril.Active aspirin EC 81 MG tablet Take 81 mg by mouth daily.Active Calcium Citrate 150 MG CAPS Take by mouth 3 times daily.Active Cholecalciferol (Vitamin D) 50 MCG (2000 UT) TABS Take by mouth.Active Victoria 3-6-9 Fatty Acids (TRIPLE OMEGA-3-6-9 ORAL) Take by mouth.Active Coenzyme Q10 (Co Q 10) 100 MG CAPS Take by mouth.Active tiZANidine (ZANAFLEX) 2 MG tablet Indications:Cervical spondylosis with myelopathy,Hx of cervical spine surgery Take 1 Tablet by mouth 3 times daily as needed. 90 Tablet 5Active TRAZODONE HCL ORAL Take 50 mg by mouth at bedtime.03/29/2025Discontinued Active Problems ProblemNoted DateDiagnosed DateHistory of major orthopedic rdkudqz8304/03/2023High blood oklojnbpbqj03/30/112790ervical spondylosis with myelopathy 02/15/2023Other specified mpdtdiddietcdm94Type 2 diabetes mellitus without complication, without long-term current use of insulin OAB (overactive bladder)Essential xqmgbxlkasem15 Encounters DateTypeDepartmentCare RlyaSzkpekktteq07/11/2025Orders Only [facility]ine [address] [place] [address] Isaias Downs MD 03/29/2025 12:45 PM ESTOffice Visit [facility] [address] [place] [address] Isaias Downs MD Cervical spondylosis with myelopathy (Primary Dx)03/29/2025 10:50 AM EST - 03/29/2025 11:59 PM ESTHospital Encounter [facility] [address] [place] [address] Cervical spondylosis with myelopathy Discharge Disposition: Discharge to Homefrom Last 3 Months Immunizations ImmunizationAdministration DatesNext DueInfluenza, injectable, adjuvanted, quadrivalent, preservative free (SQF=683)02/02/2023Influenza, injectable, high dose seasonal, trivalent, preservative free (MJJ=640)01/30/2025,02/11/2024, 02/14/2019,02/28/2018,02/19/2017Influenza, injectable, high-dose seasonal, quadrivalent, preservative free (ROR=244)02/01/2022,02/03/2021,01/25/2020 Influenza, novel B1P5-58, injectable, preservative-free (TZF=316)03/25/2009 Pfizer Monovalent (12+ yrs) SARS-COV-2 (COVID-19) vaccine, mRNA, spike protein, LNP, pres. free, 30mcg/0.3mL dose (TVL=754)02/15/2021,07/22/2020,07/01/2020 Pfizer Monovalent (12+ yrs) SARS-COV-2 (COVID-19) vaccine, mRNA, spike protein, LNP, pres. free, 30mcg/0.3mL dose, nabil-sucrose (DKQ=658)2Pneumococcal conjugate 13 valent (PCV13) (KDX=864)05/01/2015Pneumococcal polysaccharide 23 Valent (PPSV23) (CVX=33)02/28/2018 Social History Tobacco UseTypesPacks/DayYears UsedDateSmoking Tobacco: FormerCigarettes Smokeless Tobacco: Never Tobacco Cessation:Counseling Given: Not Answered Alcohol UseStandard Drinks/WeekCommentsNot Currently0 (1 standard drink = 0.6 oz pure alcohol)[facility] UtilitiesAnswerDate RecordedIn the past 12 months has the [employer], gas, oil, or water [employer] threatened to shut off services in your home?No04/10/2024Humiliation, Afraid, Rape, and Kick questionnaireAnswerDate RecordedWithin the last year, have you been afraid of your partner or ex-partner?Patient iymwqqux64/18/2024Within the last year, have you been humiliated or emotionally abused in other ways by your partner or ex-partner? Patient txmkdeay51/18/2024Within the last year, have you been kicked, hit, slapped, or otherwise physically hurt by your partner or ex-partner?Patient sntqwymt80/18/2024Within the last year, have you been raped [...] relatives?Twice a week04/10/2024How often do you attend anabaptist or anabaptism services?1 to 4 times per year04/10/2024o you belong to any clubs or organizations such as anabaptist groups, unions, fraternal or athletic groups, or school groups?Yes04/10/2024How often do you attend meetings of the clubs or organizations you belong to?More than 4 times per year04/10/2024re you , , , , never , or living with a partner?Never ldnpjai3404/10/2024Overall Financial Resource Strain (CARDIA)AnswerDate Recorded How hard is it for you to pay for the very basics like food, housing, medical care, and heating?Somewhat hard04/10/2024[facility] [place] [facility] - Occupational Stress QuestionnaireAnswerDate RecordedDo you feel stress - tense, restless, nervous, or anxious, or unable to sleep at night because your mind is troubled all the time - these days?To some byvutq6504/10/2024Exercise Vital SignAnswerDate RecordedOn average, how many days [...] sleep or slept in ashelter (including now)?No 09/29/2022Housing Stability Vital SignAnswerDate RecordedIn the last 12 months, was there a time when you were not able to pay the mortgage or rent on time?No 04/10/2024In the past 12 months, how many times have you moved where you were living?t any time in the past 12 months, were you homeless or living in a long term (including now)?No04/10/2024Utilities - HistoricalAnswerDate RecordedIn the past 12 months has the electric, gas, oil, or water [employer] threatened to shut off services in your home?No04/10/2024EducationAnswerDate RecordedWhat is the highest level of school you have completed or the highest degree you have received?Master's degree (e.g., MA, MS, Yoni, MEd, 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, IRENE) 09/29/2022Substance UseTypesUse/WeekCommentsNot CurrentlyCommentsNoSex and Gender InformationValueDate RecordedSex Assigned at YdqtxQwaecc51/04/2023 5:40 PM EDTLegal JdpZhxodb40/03/2023 3:43 PM EDTGender RhaugeyxDlbmey88/04/2023 5:40 PM EDTSexual PuauxwzfyclObzqqlrs51/04/2023 5:40 PM EDT Last Filed Vital Signs Vital SignReadingTime TakenCommentsBlood Upuulpii695/6511 5:11 AM EST Yhlyj230504/03/2023 5:11 AM QDROuvezfkipgk96.9 ??C (98.4 ??F)04/03/2023 5:11 AM ESTRespiratory Kzwd197506/03/2022 5:11 AM ESTOxygen Gqmduqpqwk99%04/03/2023 5:11 AM ESTInhaled Oxygen Concentration--Dhfpnm17.1 kg (159 lb)03/31/2023 3:39 PM EST Rtghcp617.5 cm (5' 2 )03/31/2023 9:03 AM ESTBody Mass Index29.0803/31/2023 9:03 AM EST Plan of Treatment Health MaintenanceDue DateLast JlrkGrsvmaruJjzkiesjlki07/30/1950Foot Exam 1949Vitamin B12 1949Eye Exam1949Hepatitis C Xpfvsaaw10/30/1968 Tdap Vsspgxj1610/21/1967Hepatitis A (HAV) Vaccine (optional start 19+ years) 1968CRC Wszdtxeto61/30/1995Cologuard (Stool DNA)1994FIT1994 Shingles (RZV) Vaccine (1 of 2)10/21/1999Hepatitis B (HBV) Vaccine (optional start 60+ years)2009one Nkdocwuwrnkm68/30/8123Xzzsiaxiqbs90/05/2023 12/26/2021, 12/26/2020, 12/07/2017RSV vaccine (adult) (1 - 1-dose 75+ series) 5Annual Wellness Visit (G0439)/08/2023Hemoglobin A1C 505/04/2025, 09/26/2024, 03/15/2024, Additional history existsUrine Protein (microalbumin)/4COVID-19 Vaccine ( season) 609/01/2025, 02/25/2024, 08/13/2023, Additional history existsLipid Hjcyicg165/10/2024, 09/21/2023TSHasic Metabolic Panel, 10/03/2024, 10/02/2024, Additional history exists Pneumococcal Vaccine(s) (50+ yrs)Jaxeeghqk56/08/2018, 05/01/2015Influenza YrxpygnWoaabwfsx53/09/2025, 02/11/2024, 02/02/2023, Additional history existsPap SmearDiscontinued Medical Devices ImplantedTypeAreaManufacturerDevice IdentifierShelf Expiration DateModel / Serial / LotPlate 7mm In-Line Shelf Ea1 1102.3007 - [id number] Implanted:Qty: 4 on 03/31/2023 by Isaias Downs MD at INPATIENT DEPARTMENTSPlateN/A: Posterior StyztfwdJrpogw9659.3007 / / Screw 2.6 X 4mm Self-Drilling Ea1 1102.6004 - [id number] Implanted:Qty: 3 on 03/31/2023 by Isaias Downs MD at INPATIENT DEPARTMENTSScrewN/A: Posterior KxjwzlxfHborjo0053.6004 / / Screw 2.6 X 6mm Self-Dr[employer] Ea1 1102.6006 - [id number] Implanted:Qty: 5 on 03/31/2023 by Isaias Downs MD at INPATIENT DEPARTMENTSScrewN/A: Posterior [id number] / / Procedures Procedure NamePriorityDate/TimeAssociated DiagnosisCommentsXR C-SPINE FLEX/EXT ONLY 2 YFJULMrfmyoc31/06/2025 11:40 AM EST Cervical spondylosis with myelopathy BASIC METABOLIC MNALKLswxyli15/31/2023 10:34 AM EDT Preop testing from Last 3 Months or Most Recently Relevant to Health Maintenance Results * XR C-SPINE FLEX/EXT ONLY 2 VIEWS (03/29/2025 11:40 AM EST)Anatomical Region LateralityModalityXR C-spine, C-spineN/AComputed RadiographySpecimen (Source) Anatomical Location / LateralityCollection Method / VolumeCollection Time Received Time03/31/2025 11:10 AM EST Narrative 03/31/2025 11:13 AM EST EXAMINATION: XR C-SPINE FLEX/EXT ONLY 2 VIEWSPRO 03/29/2025 11:40 AM CLINICAL HISTORY: laminoplasty ASSOCIATED DIAGNOSIS: Cervical spondylosis with myelopathy ORDERING PROVIDER: ISAIAS DOWNS TECHNOLOGISTS NOTE: COMPARISON: XR C-SPINE FLEX/EXT ONLY [...] spondylosis with myelopathy ORDERING PROVIDER: ISAIAS DOWNS TECHNOLOGISTS NOTE: COMPARISON: XR C-SPINE FLEX/EXT ONLY 2 VIEWS 04/13/2024 11:56 AM FINDINGS/IMPRESSION: On the lateral view the C-spine is visible to the C7 level. Mild stepwise retrolisthesis at C4-C7 and mild anterolisthesis at C7-C2vlhsbnt dynamic instability. Postsurgical changes of C4-C7 leftlaminoplasty without radiographic evidence for hardware complication.Decrease osseous mineralization. The vertebral bodies appear intact.Multilevel cervical spondylosis. No prevertebral soft tissue swelling. MACRO: None Authorizing ProviderResult TypeResult StatusTimjonathan BLANTON DIAGNOSTIC X-RAYFinal Result * (ABNORMAL) BASIC METABOLIC PANEL (03/23/2023 10:34 AM EDT)ComponentValueRef RangeTest MethodAnalysis TimePerformed AtPathologist NukzaqdjjCkwvtlr519(H)80 - 116 mg/dL03/23/2023 12:33 PM [facility] YGNYBRWNLZHfpnia451420 - 148 mmol/L1 12:33 PM EDUN[facility] PATHOLOG[facility] LABORATORYPotassium4.23.3 - 5.3 mmol/L1 12:33 PM [facility] PATH[facility] LABORATORYCarbon Lliubsk3592 - 30 mmol/L1 12:33 PM [facility] YQFBJGINVGImhgnwze42562 - 111 mmol/L1 12:33 PM [facility] PATHOLOGY LABORATORYBlood Urea Lizkgfku00(H)8 - 22 mg/dL03/23/2023 12:33 PM [facility] PATH[facility] LABORATORYCreatinine1.31(H)0.50 - 1.10 mg/dL03/23/2023 12:33 PM [facility] PATHOLOGY LABORATORYCalcium9.98.4 - 10.4 mg/dL03/23/2023 12:33 PM [facility] PATH[facility] LABORATORYAnion Jfc5162 - 20 03/23/2023 12:33 PM [facility] PATHOLOGY LABORATORYEstimated GFR (CKD-EPI)43(L) >=60 mL/min/1.03cav37 12:33 PM [facility] PATHOLOGY LABORATORYComment: 2020 CKD EPI Equation using Creatinine without Race Comment: ??Estimated glomerular filtration rate (eGFR) is calculated without a race coefficient. Values should be interpreted in the context of the patient's full clinical presentation. Reference: 1. Khan C, Baruizja M, Credoc DC, et al.. A Unifying Approach for GFR Estimation: Recommendations of the NKF-ASN Task Force on Reassessing the Inclusion of Race in Diagnosing Kidney Disease. AmericanJournal of Kidney Diseases 2021;79(2):268-88.e1. 2. N Engl J Med 2021 Vol. 385 Issue 19 Pages 0102-6670 Specimen (Source)Anatomical Location / LateralityCollection Method / Volume Collection TimeReceived TimeBloodBLOOD SPECIMEN / UnknownVenipuncture / Unknown 03/23/2023 10:34 AM EDT1 12:02 PM EDT Narrative Authorizing ProviderResult TypeResult StatusKiaisha Mireles APRN-CNP98 GENERAL LABFinal ResultPerforming OrganizationAddressCity/State/ZIP CodePhone Number S PATHOLOGY LABORATORY [address] [place] [address] from Last 3 Months or Most Recently Relevant to Health Maintenance Insurance Advance Directives * Full Code (Latest Code Status on File) Date ActivatedDate UcrpcubmmkdTbghjyoy85/8/2023 3:39 PM04/03/2023 3:35 PM QuestionAnswerCommentsDocumentation of decision process for this code status:* Discussed with patient or surrogate.?? This is the code status chosen by the patient/surrogate. Care Teams Team MemberRelationshipSpecialtyStart DateEnd Isaias Downs MD [address] [place] [id number] PhysicianOrthopaedic Surgery09/26/22 Dee Mireles, AMBULANCE DRIVER-SHEILA [address] [place] [address] LTDBkpnjbtxjeachr05/4/23
--- OUTSIDE RECORDS SUMMARY | 2025-04-13 12:14 | XMS_ITS | Clinical Summary ---
Author Organization [facility] Address [address] [place] [address] Care Team Providers Care Care Mgr Name Role Phone Unavailable Primary Care Provider Unavailabl e Social History Tobacco UseTypesPacks/DayYears UsedDateSmoking Tobacco: Never Assessed CommentsUnknownSex and Gender InformationValueDate RecordedSex Assigned at Not on fileLegal SmsKlguye15/18/2025 3:10 PM EDTGender IdentityNot on fileSexual OrientationNot on file Plan of Treatment DateTypeDepartmentCare Team (Latest Contact Info)Qonmqrbeidj37/30/2025 2:00 PM ESTOffice Visit [facility] [address] [place] [address] Lissa Maria MD [address] [place] [address] Diagnostics, [facility] [address] [phone] Cataract Evaluation (referral scanned)Health MaintenanceDue DateLast Done CommentsAnxiety Jhckwjlii86/30/1968Depression Ldmxixvkr20/30/1968Hepatitis C Wgdireqnv91/30/1968DTaP,Tdap,Td Vaccine (1 - Tdap)1968CT Colonography 1994Cologuard (FIT-DNA)10/20/19945769Jhkinddixhc90/30/1995Colorectal Cancer Annrutcmk99/30/1995Diabetes Qnjlanabf20/30/1995Fecal Occult Blood1994Lipid Kzgdyqndf18/30/1539Ksyyolzsmrniq11/30/1995Pneumococcal Vaccine: 50+ (1 of 1 - PCV)10/21/1999Shingrix Vaccine (1 of 2)10/21/1999Bone Density Screening 2014dvance Directive Fcwrjlzymx25/01/2025RSV Vaccine (1 - 1-dose 75+ series)2024ovid-19 Vaccine (1 - 2024-26 season)2025Influenza Vaccine (#1)2025 Insurance
--- OUTSIDE RECORDS SUMMARY | 2025-04-13 12:14 | XMS_ITS | Clinical Summary ---
Author Organization [employer] [facility] Address [facility] [id number] [address] [place] [address] Care Team Providers Care Pork Cutlet Maker Name Role Phone Unavailable Primary Care Provider Unavailabl e Allergies Active AllergyReactionsCriticalityNoted TsnpYadayosmMcdxmhiqbcnstuw68/10/2025 Ndzywuzk94/10/6255Yynffl11/10/7926Tscfvslxwbt44/10/9934Asipzmsa43/10/2025 Medications MedicationSigDispense QuantityRefillsLast FilledStart DateEnd DateStatus ubidecarenone (coenzyme Q10) 60 mg capsule Take 1 tablet by mouth in the morning.Active acetaminophen (TYLENOL EXTRA STRENGTH) 500 mg tablet Take 2 tablets (1,000 mg total) by mouth every 6 (six) hours as needed. 11/24/2023ctive atorvastatin (LIPITOR) 20 mg tablet Take 1 tablet (20 mg total) by mouth in the morning.11/24/2023ctive calcium carbonate (OS-TIP) 600 mg elemental (1,500 mg) tablet Take 1 tablet (600 mg total) by mouth daily with breakfast.Active carboxymethylcellulose sodium (THERATEARS OPHT) Administer 2 drops to both eyes daily as needed.11/24/2023ctive carvediloL (COREG) 25 mg tablet Take 1 tablet (25 mg total) by mouth in the morning and 1 tablet (25 mg total) in the evening. Takewith meals.11/24/2023ctive cetirizine (ZyrTEC) 10 mg tablet Take 1 tablet (10 mg total) by mouth in the morning.Active cholecalciferol 1,000 units tablet Take 1 tablet (1,000 Units total) by mouth in the morning and at bedtime.Active cycloSPORINE (RESTASIS) 0.05 % ophthalmic emulsion Administer 1 drop to both eyes in the morning and 1 drop before bedtime. 11/24/2023ctive docosahexaenoic acid (EXPECTA LIPIL) 200 mg capsule Take 1 capsule (200 mg total) by mouth in the morning.11/24/2023ctive levothyroxine (SYNTHROID, LEVOTHROID) 100 MCG tablet Take 1 tablet (100 mcg total) by mouth in the morning.11/24/2023ctive triamcinolone (NASACORT) 55 mcg nasal inhaler Administer 1 spray into each nostril in the morning.Active ursodioL (NATHEN FORTE) 500 mg tablet Take 1 tablet (500 mg total) by mouth in the morning and 1 tablet (500 mg total) before bedtime.Active Active Problems ProblemNoted DateDiagnosed DateGI bleed09/29/2024 Immunizations ImmunizationAdministration DatesNext DueCovid-19, Mrna, Lnp-s, Pf,nabil- sucrose,30 Mcg/0.3ml Xrdbjeyr04/03/4551B1I9 Inj Preservative Free03/25/2009 Influenza High Dose Preservative Free IM02/11/2024,02/14/2019,02/28/2018, 02/19/2017,03/13/2015Influenza Split Preservative Free ID03/24/2015Influenza Vaccine, Quadrivalent, Vksblvmnvw45/12/2023Influenza, High-dose, Quadrivalent 02/01/2022,02/03/2021,01/25/2020Influenza, Injectable, quadrivalent (PF) 03/04/2016Influenza, Trivalent, Ykpgzjgaap10/07/2016Influenza, Unspecified 03/01/2017,03/02/2016,02/26/2014Pneumococcal Conjugate 13-Rnikfy0203/04/2016, 05/01/2015Pneumococcal Zqdwlxoepkaaff82/08/2018,03/24/2011RSV, bivalent, protein subunit RSVpreF, diluent reconstituted, 0.5 mL, PF02/23/2023Zoster Live 10/04/2013,02/26/2012 Social History Tobacco UseTypesPacks/DayYears UsedDateSmoking Tobacco: FormerCigarettes Smokeless Tobacco: Never Tobacco Cessation:Counseling Given: Not Answered Alcohol UseStandard Drinks/WeekCommentsNot Currently0 (1 standard drink = 0.6 oz pure alcohol)[facility] UtilitiesAnswerDate RecordedIn the past 12 months has the electric, gas, oil, or water company threatened to shut off services in your home?No09/30/2024UDIT-CAnswerDate RecordedQ1: How often do you have a drink containing alcohol?Never09/30/2024Q2: How many drinks containing alcohol do you have on a typical day when you are drinking?Patient does not drink09/30/2024Q3: How often do you have six or more drinks on one occasion?Never09/30/2024Overall Financial Resource Strain (CARDIA)AnswerDate RecordedHow hard is it for you to pay for the very basics like food, housing, medical care, and heating?Not hard at all09/30/2024PHQ-2AnswerDate RecordedTotal Ihiiz706PRAPARE - TransportationAnswerDate RecordedIn the past 12 months, has lack of transportation kept you from medical appointments or from getting medications?No 09/30/2024In the past 12 months, has lack of transportation kept you from meetings, work, or from getting things needed for daily living?No09/30/2024 Housing InstabilityAnswerDate RecordedAre you worried or concerned that in the next two months you may not have stable housing that you own, rent or stay in as a part of a household?No09/30/2024hildcareAnswerDate RecordedChildcareUnknown 11/02/2018EmploymentAnswerDate VdzmxjwoUlwpfxeebmByzkvlt93/12/2019Hunger ScreeningAnswerDate RecordedWithin the past 12 months we worried whether our food would run out before we got money to buy more.Never True09/30/2024Within the past 12 months the food we bought just didn't last and we didn't have money to get more.Never True09/30/2024CommentsNoSex and Gender Information ValueDate RecordedSex Assigned at BirthNot on fileLegal FisCxrcds35/23/2015 2:32 PM ESTGender IdentityNot on fileSexual OrientationNot on file Last Filed Vital Signs Vital SignReadingTime TakenCommentsBlood Baakmwsg050/78010/03/2024 11:35 AM EDT Hbzgb054110/03/2024 12:00 PM SYQPfkzcfqfccs97.1 ??C (98.8 ??F)10/03/2024 12:00 PM EDTRespiratory Usbl131310/03/2024 12:00 PM EDTOxygen Wptaggveyu356%10/02/2024 3:15 PM EDTInhaled Oxygen Concentration--Kzefng87.6 kg (160 lb)10/03/2024 6:00 AM EDT Aqhpqw452.9 cm (5' 1 )09/30/2024 12:00 AM EDTBody Mass Index30.23009/30/2024 12:00 AM EDT Plan of Treatment Health MaintenanceDue DateLast DoneCommentsDTaP,Tdap and Td Vaccines (1 - Tdap) 1968Zoster (Shingles) Vaccine (2 of 3), 02/26/2012Fall Risk Eyjihliiw96/30/2015COVID-19 Vaccine ( season)2025 02/25/2024, 08/13/2023, 02/23/2023, Additional history existsInfluenza Vaccine /, 02/02/2023, 02/01/2022, Additional history exists Depression Cfatbpgww34/02/2025Tobacco Joxyzzenz13/04/2025RSV ( or age 60+ yrs)Vgfhfcwfk70/03/2023 Goals GoalPatient Goal TypeAssociated ProblemsRecent ProgressPatient-Stated?Author Return home Nadya Carpio, [facility] Note: Evaluation of progress towards goal: Plan to return home. Medical Devices Not on file Insurance Advance Directives * Full Code (Latest Code Status on File) Date ActivatedDate InactivatedComments09/29/2024 7:59 PM10/03/2024 6:17 PM
--- OUTSIDE RECORDS SUMMARY | 2025-04-13 12:14 | XMS_ITS | Encounter Summary ---
Author Organization Eugenio Arshad [facility] Address [address], [address] [place] [address] Care Team Providers Care Public School Teacher Name Role Phone Magnus Shay MD Primary Care Provider [phone] Encounter Details DateTypeDepartmentCare Team (Latest Contact Info)Hzixvsqazox07/10/2025bstract Magnus Shay MD [address] [place] [phone] Magnus Shay MD [address] [facility], [place] [address] Social History Tobacco UseTypesPacks/DayYears UsedDateSmoking Tobacco: FormerCigarettes0.129753 - 1974Smokeless Tobacco: Never Comments:smoked socially on occassion until [...] times a week03/27/2024How often do you attend uatsdin or uatsdin services?1 to 4 times per year03/27/2024 Do you belong to any clubs or organizations such as uatsdin groups, unions, fraSphere 3d or athletic groups, or school groups?Yes03/27/2024How often do you attend meetings of the clubs or organizations you belong to?More than 4 times per year03/27/2024re you , , , , never , or living with a partner?Never gnlhozv7103/27/2024UDIT-CAnswerDate RecordedQ1: How often do you have a drink containing alcohol?Never03/27/2024Q2: How many drinks containing alcohol do you have on a typical day when you are drinking? Patient does not drink03/27/2024Q3: How often do you have six or more drinks on one occasion?Never03/27/2024HQ-2AnswerDate RecordedPHQ-9 Total Wntgk77506/04/2024 Exercise Vital SignAnswerDate RecordedOn average, how many [...] steady place to sleep or slept in [facility] (including now)?No 10/01/2023Housing Stability Vital SignAnswerDate RecordedIn the last 12 months, was there a time when you were not able to pay the mortgage or rent on time?No 04/11/2025In the past 12 months, how many times have you moved where you were living?t any time in the past 12 months, were you homeless or living in a senior living (including now)?No04/11/2025Humiliation, Afraid, Rape, and Kick questionnaireAnswerDate [...] relatives?Twice a week04/11/2025How often do you attend uatsdin or uatsdin services?Never04/11/2025Do you belong to any clubs or organizations such as uatsdin groups, unions, fraternal or athletic groups, or school groups?Yes04/11/2025How often do you attend meetings of the clubs or organizations you belong to?More than 4 times per year04/11/2025re you , , , , never , or living with a partner?Never dlniexj3904/11/2025UDIT-CAnswerDate RecordedQ1: How often do you have a [...] housing, medical care, and heating?Not hard at all04/11/2025[facility] Occupational Health - Occupational Stress QuestionnaireAnswerDate RecordedDo you feel stress - tense, restless, nervous, or anxious, or unable to sleep at night because yourmind is troubled all the time - these days?To some prxyvw1204/11/2025Exercise Vital SignAnswerDate Recorded On average, how many [...] RecordedIn the past 12 months has the [employer], gas, oil, or water [employer] threatened to shut off services in your home?No04/11/2025Interpersonal Safety Domain Source: IP Abuse Screening AnswerDate RecordedPhysical ysxboTvqxmp48/08/2025Verbal vlogwPspzth01/08/2025 Emotional xrourBqxfwu54/08/2025Financial fwaiuFbxzyq11/08/2025Sexual abuseDenies 09/28/2024CommentsNoSex and Gender InformationValueDate RecordedSex Assigned at BurzgJtakwg91/27/2020 5:43 PM EDTLegal FicWceycr78/10/2013 10:08 AM ESTGender ApqwojoeUwtpof24/27/2020 5:43 PM EDTSexual OrientationStraight 10/18/2019 5:43 PM EDTdocumented as of this encounter Functional Status * AUDIT-C ScoreAnswerDate of IwigjojpsnYrvfpe334/12/2025 5:47 PM Dilia, Processor * Q1: How often do you have a drink containing alcohol?AnswerDate of Assessment JzhoxkTewha06/12/2025 5:47 PM ESTSamreen, Processor * Q2: How many drinks containing alcohol do you have on a typical day when you are drinking?AnswerDate of AssessmentAuthorPatient does not drink04/04/2025 5:47 PM Dilia, Processor * Q3: How often do you have six or more drinks on one occasion?AnswerDate of WkzifxxheuYsuwlyOpyst58/12/2025 5:47 PM Dilia Processor documented as of this encounter Plan of Treatment DateTypeDepartmentCare Team (Latest Contact Info)Cqunkghvrry74/22/2026 1:00 PM ESTOffice Visit [facility] UROLOGY Part of [address] [place] [phone] Mj Alvarenga MD [address] [place] [address] [address] [place] [phone] [address] [place], [place] [address]ot check06/26/2025 11:30 AM ESTOffice Visit [facility] Specialty Providers on Main [address] [address] Sandra Alvares, LIFTER/DRIVER - [address] [address] 3 months f/u with xtdaob8910/02/2025 1:30 PM EDTOffice Visit Magnus Shay MD [address] [place] [phone] Magnus Shay MD [address] [place] [address], [facility] [place] [address] 6 month gc04/24/2026 11:00 AM ESTOffice Visit Magnus Shay MD [address] [place] [address] Magnus Shay MD [address] [facility], [facility] [place] [address] awv12/24/2026 2:15 PM EDTOffice Visit [facility] OBSTETRICS & GYNECOLOGY Part of [address] [place] [address] Destinee Coughlin, WM - [address] [place] [address] yearly--last 12/19/2024--Medicaredocumented as of this encounter Visit Diagnoses Not on filedocumented in this encounter Additional Health Concerns AssessmentNoted TimeA fall risk assessment has been completed for the patient 12/12/2024 2:26 PM EDTA Body Mass Index follow-up plan has been documented for the fijaayr0311/18/2021 4:24 PM EDTdocumented as of this encounter Care Teams Team MemberRelationshipSpecialtyStart DateEnd Date Magnus Shay MD [address] [place] [address], [place] [address] PCP - GeneralInternal Medicine07/20/14documented as of this encounter
--- OUTSIDE RECORDS SUMMARY | 2025-04-13 12:14 | XMS_ITS | Encounter Summary ---
Author Organization [facility] Address [address] [place] [address] Care Team Providers Care Clamp Truck Driver Name Role Phone Isaias Downs MD Unavailable [phone] Dee Mireles Unavailable Encounter Details DateTypeDepartmentCare Team (Latest Contact Info)Jmiasbcitfs81/11/2025Orders Only [facility] Orthopedic Spine [address] [place], [place] [phone] Isaias Downs MD [address] [place], [place] [phone] Social History Tobacco UseTypesPacks/DayYears UsedDateSmoking Tobacco: FormerCigarettes Smokeless Tobacco: NeverAlcohol UseStandard Drinks/WeekCommentsNot Currently0 (1 standard drink = 0.6 oz pure alcohol)[facility] UtilitiesAnswerDate RecordedIn the past 12 months has the [employer], gas, oil, or water [employer] threatened to shut off services in your home?No04/10/2024Humiliation, Afraid, Rape, and Kick questionnaireAnswerDate RecordedWithin the last year, have you been afraid of your partner or ex-partner?Patient anesvytv33/18/2024Within the last year, have you been humiliated or emotionally abused in other ways by your partner or ex-partner?Patient ffgfxtdi21/18/2024Within the last year, have you been kicked, hit, slapped, or otherwise physically hurt by your partner or ex-partner?Patient nkyggesr98/18/2024Within the last year, have you been raped [...] relatives?Twice a week04/10/2024How often do you attend alevism or denominational services?1 to 4 times per year04/10/2024o you belong to any clubs or organizations such as alevism groups, unions, fraternal or athletic groups, or school groups?Yes04/10/2024How often do you attend meetings of the clubs or organizations you belong to?More than 4 times per year04/10/2024re you , , , , never , or living with a partner?Never jurexgc3104/10/2024Overall Financial Resource Strain (CARDIA)AnswerDate Recorded How hard is it for you to pay for the very basics like food, housing, medical care, and heating?Somewhat hard04/10/2024[employer] [place] of Occupational Health - Occupational Stress QuestionnaireAnswerDate RecordedDo you feel stress - tense, restless, nervous, or anxious, or unable to sleep at night because your mind is troubled all the time - these days?To some rlcadq5904/10/2024Exercise Vital SignAnswerDate RecordedOn average, how many days [...] were you homeless or living in a intermediate (including now)?04/10/2024Utilities - HistoricalAnswerDate RecordedIn the past 12 months has the electric, gas, oil, or water [employer] threatened to shut off services in your home?04/10/2024EducationAnswerDate RecordedWhat is the highest level of school you have completed or the highest degree you have received?Master's degree (e.g., MA, MS, Yoni, MEd, TREATMENT TECHNICIAN, IRENE) 09/29/2022Substance UseTypesUse/WeekCommentsNot CurrentlyCommentsNoSex and Gender InformationValueDate RecordedSex Assigned at PcbjbNcqrqk80/04/2023 5:40 PM EDTLegal PnlAjluqj97/03/2023 3:43 PM EDTGender XqkvyojtWrekal10/04/2023 5:40 PM EDTSexual HtlgmgacmuuLnsziefd76/04/2023 5:40 PM EDTdocumented as of this encounter Progress Notes * Addie Fox, RN - 04/03/2025 11:[address] Downs recommended pt to take muscle relaxant at night. Unable to take flexeril, causes hallucinations. Tizanidine order pended to Dr Downs. documented in this encounter Plan of Treatment Not on file documented as of this encounter Visit Diagnoses Diagnosis Cervical spondylosis with myelopathy- Primary Hx of cervical spine surgery documented in this encounter Care Teams Team MemberRelationshipSpecialtyStart DateEnd Date Isaias Downs MD [address] [place] [address] PhysicianOrthopaedic Surgery09/26/22 Dee Mireles, WM-SKILLED LABOR [address] [place] [address] [address] [place] [place] [phone] KIUBipudxqgaygtvz44/4/23documented as of this encounter
--- OUTSIDE RECORDS SUMMARY | 2025-04-13 12:14 | XMS_ITS | Encounter Summary ---
Author Organization Eugenio [facility] Address [address], [address] [place] [address] Care Team Providers Care Mesh Man Name Role Phone Magnus Shay MD Primary Care Provider [phone] Encounter Details DateTypeDepartmentCare Team (Latest Contact Info)Fbctwdukeet95/18/2025Results Follow-Up [facility] UROLOGY Part of [address] [place] [phone] Shirley Pelayo, OPERATIONS STAFF SPECIALIST SECURITY - DRIER UNLOADER [address] [place] [address] [address] [place] [address] Social History Tobacco UseTypesPacks/DayYears UsedDateSmoking Tobacco: FormerCigarettes0.596645 - 1975Smokeless Tobacco: Never Comments:smoked socially on occassion until [...] times a week03/27/2024How often do you attend restorationism or zoroastrian services?1 to 4 times per year03/27/2024 Do you belong to any clubs or organizations such as restorationism groups, unions, [employer] or athletic groups, or school groups?Yes03/27/2024How often do you attend meetings of the clubs or organizations you belong to?More than 4 times per year03/27/2024re you , , , , never , or living with a partner?Never xxczknr9403/27/2024UDIT-CAnswerDate RecordedQ1: How often do you have a drink containing alcohol?Never03/27/2024Q2: How many drinks containing alcohol do you have on a typical day when you are drinking? Patient does not drink03/27/2024Q3: How often do you have six or more drinks on one occasion?Never03/27/2024HQ-2AnswerDate RecordedPHQ-9 Total Hpzjh104 Exercise Vital SignAnswerDate RecordedOn average, how many [...] steady place to sleep or slept in [facility] (including now)?No 10/01/2023Housing Stability Vital SignAnswerDate RecordedIn the last 12 months, was there a time when you were not able to pay the mortgage or rent on time?No 04/11/2025In the past 12 months, how many times have you moved where you were living?t any time in the past 12 months, were you homeless or living in a jail (including now)?No04/11/2025Humiliation, Afraid, Rape, and Kick questionnaireAnswerDate [...] relatives?Twice a week04/11/2025How often do you attend restorationism or zoroastrian services?Never04/11/2025Do you belong to any clubs or organizations such as restorationism groups, unions, fraternal or athletic groups, or school groups?Yes04/11/2025How often do you attend meetings of the clubs or organizations you belong to?More than 4 times per year04/11/2025re you , , , , never , or living with a partner?Never oerrkac7404/11/2025UDIT-CAnswerDate RecordedQ1: How often do you have a [...] housing, medical care, and heating?Not hard at all04/11/2025[facility] [place] of Occupational Health - Occupational Stress QuestionnaireAnswerDate RecordedDo you feel stress - tense, restless, nervous, or anxious, or unable to sleep at night because yourmind is troubled all the time - these days?To some udtpch5104/11/2025Exercise Vital SignAnswerDate Recorded On average, how many [...] RecordedIn the past 12 months has the [employer], gas, oil, or water company threatened to shut off services in your home?No04/11/2025Interpersonal Safety Domain Source: IP Abuse Screening AnswerDate RecordedPhysical gwiajLqwaci31/08/2025Verbal nepnbEqtmwk94/08/2025 Emotional dvozwCsgwyx82/08/2025Financial azpmhVwboyr18/08/2025Sexual abuseDenies 09/28/2024CommentsNoSex and Gender InformationValueDate RecordedSex Assigned at HvcsxMnsend33/27/2020 5:43 PM EDTLegal EqiLpzoaf55/10/2013 10:08 AM ESTGender HssoeklxFvpqyq93/27/2020 5:43 PM EDTSexual OrientationStraight 10/18/2019 5:43 PM EDTdocumented as of this encounter Functional Status * AUDIT-C ScoreAnswerDate of VcpbftjqcrHirapx967/12/2025 5:47 PM ESTMychart, Processor * Q1: How often do you have a drink containing alcohol?AnswerDate of Assessment McojurRcvom34/12/2025 5:47 PM ESTMychart, Processor * Q2: How many drinks containing alcohol do you have on a typical day when you are drinking?AnswerDate of AssessmentAuthorPatient does not drink04/04/2025 5:47 PM ESTChelseachart, Processor * Q3: How often do you have six or more drinks on one occasion?AnswerDate of TmlkrfwbwrMjpfvnXybfw40/12/2025 5:47 PM ESTSamreen, Processor documented as of this encounter Plan of Treatment DateTypeDepartmentCare Team (Latest Contact Info)Gtkuaqvnrzf22/22/2026 1:00 PM ESTOffice Visit [facility] UROLOGY Part of [address] [place] [phone] Mj Alvarenga MD [address] [place] [address] [address] [phone] sympotm check06/26/2025 11:30 AM ESTOffice Visit [facility] Specialty Providers on Main [address] [address] Sandra Alvares, OPERATIONS STAFF SPECIALIST SECURITY - DRIER UNLOADER [address] [place] [address] 3 months f/u with vozglq6510/02/2025 1:30 PM EDTOffice Visit Magnus Shay MD [address] [place] [phone] Magnus Shay MD [address] [place] [address], [facility] [place] [address] 6 month gc04/24/2026 11:00 AM ESTOffice Visit Magnus Shay MD [address] [place] [address] [facility] [address] Magnus Shay MD [address] [facility] [address] [place] [phone] awv12/24/2026 2:15 PM EDTOffice Visit [facility] OBSTETRICS & GYNECOLOGY Part of [address] [place] [phone] Destinee Coughlin, OPERATIONS STAFF SPECIALIST SECURITY - [address] [facility] [address] [place] [address] yearly--last 12/19/2024--Medicaredocumented as of this encounter Visit Diagnoses Not on filedocumented in this encounter Additional Health Concerns InfectionOnset DateLast IndicatedResolved EpexOqocyzwjbc76/24/70840402/14/2025 02/24/2025 9:27 PM EDTAssessmentNoted TimeA fall risk assessment has been completed for the kioknuf5612/12/2024 2:26 PM EDTA Body Mass Index follow-up plan has been documented for the aslfwat3511/18/2021 4:24 PM EDTdocumented as of this encounter Care Teams Team MemberRelationshipSpecialtyStart DateEnd Date Magnus Shay MD [address] [place] [address] PCP - GeneralInternal Medicine07/20/14documented as of this encounter
--- OUTSIDE RECORDS SUMMARY | 2025-04-13 12:14 | XMS_ITS | Clinical Summary ---
Author Organization [facility] Address [address] [place] [address] Care Team Providers Care Alarm Signaler Name Role Phone Magnus Shay MD Primary Care Provider [phone] Allergies Active AllergyReactionsCriticalityNoted EfemVjpdoqyfEyximnitNabslvn19/19/2023 RrwoalVjolt19/19/2023enicillin QJpfpammc34/19/8588ZopqbstvCaasg53/19/2023 Sneezing / Runny Nose Medications MedicationSigDispense QuantityRefillsLast FilledStart DateEnd DateStatus valsartan (Diovan) 320 MG tablet Take 320 mg by mouth in the morning.11/10/2022ctive atorvastatin (Lipitor) 20 MG tablet Take 20 mg by mouth in the morning.05/19/2022ctive levothyroxine (Synthroid, Levoxyl) 100 MCG tablet Take 100 mcg by mouth in the morning.05/19/2022ctive hydroCHLOROthiazide (HYDRODiuril) 12.5 MG tablet Take 12.5 mg by mouth in the morning.Active carvedilol (Coreg) 25 MG tablet Take 25 mg by mouth in the morning and 25 mg before bedtime.Active metFORMIN (Glucophage) 500 MG tablet Take 500 mg by mouth in the morning and 500 mg in the evening. Take with meals. 05/19/2022ctive meloxicam (Mobic) 15 MG tablet Take 15 mg by mouth in the morning.Active cetirizine (ZyrTEC) 10 MG tablet Take 10 mg by mouth.Active Probiotic Product (PROBIOTIC BLEND PO) as directed OrallyActive aspirin 81 MG EC tablet Take 81 mg by mouth in the morning.Active 28-0.8 MG tablet 1 (one) time each day at the same time.Active Carboxymethylcellulose Sodium (EQ RESTORE PLUS LUBRICANT EYE OP) Restore-XActive cholecalciferol (Vitamin D-3) 50 MCG (1999 UT) tablet Take 1 tablet by mouth in the morning.Active CALCIUM CITRATE PO Take 600 mg by mouth in the morning and 600 mg at noon and 600 mg in the evening.Active coenzyme Q-10 (Q-SORB) 100 MG capsule Daily, Refills(s) ctive [place] 3-6-9 Fatty Acids (TRIPLE OMEGA COMPLEX PO) Take by mouth.Active triamcinolone (Nasacort Allergy 24HR) 55 MCG/ACT nasal inhaler 1 (one) time each day at the same time.Active ursodiol (Actigall) 500 MG tablet Take 500 mg by mouth in the morning and 500 mg before bedtime.12/17/2022ctive cycloSPORINE (Restasis) 0.05 % ophthalmic emulsion 1 drop.11/10/2022ctive Acetaminophen 500 MG capsule Active omeprazole (PriLOSEC) [address] capsule Take 10 mg by mouth in the morning. Take before meals. Do not crush or chew. Active Active Problems No known active problems Family History Medical HistoryRelationNameCommentsAlzheimer's diseaseFatherHeart diseaseFather HypertensionFatherMental illnessFatherStrokeFatherHeart diseaseMaternal GrandfatherHypertensionMaternal GrandfatherAlzheimer's diseaseMotherDiabetes MotherHypertensionMotherMental illnessMotherRelationNameStatusCommentsFather DeceasedMaternal GrandfatherMotherDeceased Social History Tobacco UseTypesPacks/DayYears UsedDateSmoking Tobacco: FormerCigarettesQuit: 1975Smokeless Tobacco: Never Tobacco Cessation:Counseling Given: Not Answered Alcohol UseStandard Drinks/WeekCommentsNot Currently0 (1 standard drink = 0.6 oz pure alcohol)caffeine intake: 1-2 cups per dayCommentsUnknownSex and Gender InformationValueDate RecordedSex Assigned at OedaeQeglks60/16/2023 10:15 AM EDTLegal HviNqubcp13/15/2023 6:38 PM EDTGender XfamotdhWzwcnk96/16/2023 10:15 AM EDTSexual OrientationNot on file Last Filed Vital Signs Vital SignReadingTime TakenCommentsBlood Pressure--Pulse--Temperature-- Respiratory Rate--Oxygen Saturation--Inhaled Oxygen Concentration--Qcjrot14.1 kg (137 lb)12/08/2023 11:06 AM SQJZdubap112.9 cm (5' 1 )12/08/2023 11:06 AM EDTBody Mass Index25.8912/08/2023 11:06 AM EDT Plan of Treatment DateTypeDepartmentCare Team (Latest Contact Info)Wiaccwqfari54/12/2026 2:00 PM EDTOffice Visit [facility] [address] [place] [address] Jr. Keith Gabriel C, DO [address] [place] [address] Health MaintenanceDue DateLast DoneCommentsCT Ybkkjquzzeve74/30/1950FIT-DNA 1949FIT1949 5859Pfsqfgmtyqwjb44/30/1950COVID-19 Vaccine ( season)510/08/2023, 08/13/2023, 02/23/2023, Additional history exists Influenza Vaccine (#1)509/, 02/02/2023, 02/01/2022, Additional history rgnxadJZUE08/09/595194/3527Xlgnkygtfhy83/23/203103/, 08/13/2020, 12/03/2016Colorectal Cancer Gladjyivy03/23/2031neumococcal Vaccine: 65+ VfqgzLblmyhfxn66/08/2018, 03/04/2016, 05/01/2015, Additional history exists DytdpulrzKmzidjncyyui00/05/2022, 12/26/2021, 12/26/2020, Additional history exists Insurance Care Teams Team MemberRelationshipSpecialtyStart DateEnd Date Magnus Shay MD [address] [place] [address] PCP - Nvaqixq03/16/23
--- OUTSIDE RECORDS SUMMARY | 2025-04-13 12:14 | XMS_ITS | Clinical Summary ---
Author Organization [facility] Address [address], [address] [place] [address] Care Team Providers Care Operater Name Role Phone Magnus Shay MD Primary Care Provider [phone] Allergies Active AllergyReactionsCriticalityNoted DateCommentsCyclobenzaprine Mljsqyzzswzals65/21/5353Jqxrlme52/03/1326TrgcmhqrUksvPry89/11/2015NickelRashLow 04/03/20155156LetxqmlgshiMnuxnqdlQwaauo80/11/5575OruidtfaJdr47/11/2015 SNEEZING, RUNNY NOSE Medications MedicationSigDispense QuantityRefillsLast FilledStart DateEnd DateStatus calcium carbonate 600 MG TABS tablet Take 1 tablet by mouth 3 times dailyActive vitamin D (CHOLECALCIFEROL) 1000 UNIT TABS tablet Take 1 tablet by mouth in the morning and 1 tablet in the evening.Active NONFORMULARY Take 1 tablet by mouth daily RESTORE OCULARActive CycloSPORINE (RESTASIS OP) Apply 1 drop to eye in the morning and 1 drop in the evening. Both Eyes.Active Triamcinolone Acetonide (NASACORT AQ NA) by Nasal route daily One spray in each nostril once a dayActive Vit-Fe Fumarate-FA ( VITAMIN PO) Take by mouth dailyActive cetirizine (ZYRTEC) 10 MG tablet Take 1 tablet by mouth dailyActive Probiotic Product (PROBIOTIC PO) Take 1 tablet by mouth dailyActive ursodiol (ACTIGALL) 500 MG tablet Take 1 tablet by mouth 2 times daily2Active levothyroxine (SYNTHROID) 100 MCG tablet TAKE 1 TABLET BY MOUTH EVERY DAY 90 tablet 5Active atorvastatin (LIPITOR) 20 MG tablet TAKE 1 TABLET BY MOUTH EVERY DAY 90 tablet 5Active coenzyme Q10 60 MG CAPS Take 1 tablet by mouth dailyActive hydroCHLOROthiazide 12.5 MG tablet Take 1 tablet by mouth daily 90 tablet 5Active omeprazole (PRILOSEC) 40 MG delayed release capsule Take 1 capsule by mouth daily 90 capsule 5Active metFORMIN (GLUCOPHAGE) 500 MG tablet Indications:Type 2 diabetes mellitus without complication, without long-term current use of insulin (HCC)Take 1 tablet by mouth 2 times daily 180 tablet 5Active estradiol (ESTRACE VAGINAL) 0.1 MG/GM vaginal cream insert one inch of cream inside the vagina and place an additional dime sized amount to the urethraand inner labia every night for two weeks then three nights per week thereafter. Do NOT use plasticapplicator. 42.5 g 5Active valsartan (DIOVAN) 320 MG tablet Take 1 tablet by mouth daily 90 tablet 5Active carvedilol (COREG) 25 MG tablet TAKE 1 TABLET BY MOUTH TWICE A DAY 180 tablet 5Active clindamycin (CLEOCIN) 150 MG capsule Take 4 tabs One hr prior to dental procedure 8 capsule 5Active polyethylene glycol (GLYCOLAX) 17 g packet Take 1 packet by mouth daily as needed for ConstipationActive meloxicam (MOBIC) 15 MG tablet TAKE 1 TABLET BY MOUTH EVERY DAY 30 tablet 5Active Carboxymethylcellulose Sodium (THERATEARS OP) Apply to eyeActive aspirin 81 MG chewable tablet Take 1 tablet by mouth dailyActive tiZANidine (ZANAFLEX) 2 MG tablet Take 1 tablet by mouth nightly as needed (neck muscle)5Active Active Problems ProblemNoted DateDiagnosed DateUrge etdttytvhllt36/28/2025Gastrointestinal hemorrhage with melena from Liver Biopsy / Normal EGD Uxnohpzihazqwz05/06/2017Mixed ufqjtpyulmqesv64/27/2016Type 2 diabetes mellitus without complication, without long-term current use of insulin (HCC) / Metformin ER05/19/2016Mixed aooqvhmznnce26/21/2016OAB (overactive bladder)02/12/2016 Essential hjlxolevfboo88/16/2015Primary biliary cirrhosis (HCC) / 2004 / MRI [id number] Resolved Problems ProblemNoted DateDiagnosed DateResolved DateHypovolemic shock09/29/2024 10/11/20243094Xvzfhhfdzogq45/11/8171Qzppxytipqvwhj34/11/2015Type 2 diabetes mellitus 04/03/2015 Encounters DateTypeDepartmentCare IqvzLcyxakpdsco59/19/2025 9:50 AM ESTOffice Visit Mangus Shay MD [address] [place] [address] [place] [phone] Magnus Shay MD Medicare annual wellness visit, subsequent (Primary Dx); Type 2 diabetes mellitus without complication, without long-term current use of insulin (HCC) / Metformin ER04/02/2025bstract Magnus Shay MD [address] [place] [address] [place] [phone] Magnus Shay MD 03/27/2025 11:30 AM ESTOffice Visit [facility] on [address] [address] Sandra Alvares GIFT OFFICER - SHEILA Mixed incontinence (Primary Dx); Mlktsipr11/30/2025Telephone [facility] on [address] [address] Sandra Alvares GIFT OFFICER - EXPEDITION SUPERVISOR Other03/21/2025 7:30 AM EDT - 03/21/2025 8:35 AM EDTSurgery [facility] OR [address] [place] [address] Mj Alvarenga MD TIBIAL NERVE HXURJJJTDIQ89/29/2025 6:36 AM EDT - 03/21/2025 9:20 AM EDTHospital Encounter [facility] OR [address] [place], [place] [phone] Mj Alvarenga MD Discharge Disposition: Home or Self Care03/21/20253918Onocnp87/24/2025Telephone [facility] on [address] [phone] Parsell, Sandra W, GIFT OFFICER - EXPEDITION SUPERVISOR Surgery Smamfrreks40/21/2025Telephone [facility] on Main [place] [phone] Sandra Alvares, GIFT OFFICER - EXPEDITION SUPERVISOR Other03/09/2025 10:15 AM EDTProcedure visit [facility] Part of [address] [place] [phone] Mj Alvarenga MD Mixed incontinence (Primary Dx); OAB (overactive bladder); Microhematuria; Bladder wall cfnxqpqtby91/07/2025 2:38 PM EDT - 02/27/2025 11:59 PM EDTHospital Encounter [facility] [address] [place] [address] Discharge Disposition: Home or Self Care02/19/2025Refill Magnus Shay MD [address] [place] [address] [place] [address] Magnus Shay MD Medication Cljjiw7202/15/2025Orders Only Magnus Shay MD [address] [place] [address] [place] [phone] Destinee Coughlin, WM - RAJIV 02/15/2025Results Follow-Up [facility] Part of [address] [place] [phone] Shirley Pelayo, GIFT OFFICER - EXPEDITION SUPERVISOR Nynulxk3302/14/2025 4:41 PM EDT - 02/14/2025 11:59 PM EDTHospital Encounter [facility] [address] [place] [address] Mixed incontinence; Suprapubic pain Discharge Disposition: Home or Self Care02/14/2025 4:39 PM EDT - 02/16/2025 11:59 PM EDTHospital Encounter [facility] Scan [address] [place] [phone] Mixed incontinence; Suprapubic pain Discharge Disposition: Home or Self Care02/14/2025Orders Only [facility] Part of [address] [place] [phone] Sandra Alvares GIFT OFFICER - EXPEDITION SUPERVISOR Mixed incontinence (Primary Dx)02/14/2025Telephone [facility] [address] [place] [address] Sandra Alvares GIFT OFFICER - EXPEDITION SUPERVISOR OTHER02/13/2025 2:56 PM EDT - 02/13/2025 11:59 PM EDTHospital Encounter [facility] Sleep Center [address] [place], [place] [phone] Snoring; Type 2 diabetes mellitus without complication, without long-term current use of insulin (HCC) / Metformin ER; Sleep apnea, unspecified type Discharge Disposition: Home or Self Care02/08/2025Results Follow-Up [address] [place], [facility] Shirley Pelayo GIFT OFFICER - EXPEDITION SUPERVISOR 02/07/2025Telephone [facility] [place] [address] Sandra Alvares GIFT OFFICER - EXPEDITION SUPERVISOR 02/06/2025 3:33 PM EDT - 02/06/2025 11:59 PM EDTHospital Encounter [facility] [address] [place], [place] [phone] Nocturia; Mixed incontinence Discharge Disposition: Home or Self Care02/06/2025 2:00 PM EDTOffice Visit [facility] [place] [address] Sandra Alvares GIFT OFFICER - EXPEDITION SUPERVISOR Snoring (Primary Dx); Type 2 diabetes mellitus without complication, without long-term current use of insulin (HCC) / Metformin ER; Nocturia; Mixed incontinence; Sleep apnea, unspecified typefrom Last 3 Months Immunizations ImmunizationAdministration DatesNext DueCOVID-19, COMIRNATY (Pfizer), (age 12y+), IM, 30mcg/0.3mL10/3COVID-19, Inactive, PFIZER Bivalent, DO NOT Dilute, (age 12y+)09/27/2022,2COVID-19, Inactive, PFIZER TERRY top, DO NOT Dilute, (age 12 y+)2COVID-19, Inactive, PFIZER PURPLE top, DILUTE for use, (age 12 y+)02/01/2022,02/15/2021,07/22/2020,07/01/2020Influenza A (J6V4-25) Vaccine PF IM03/25/2009Influenza Vaccine, unspecified formulation 03/01/2017,03/04/2016Influenza Virus Iztnslm6202/11/2024,01/25/2020,03/01/2017, 03/02/2016,03/24/2015,02/26/2014Influenza, FLUAD, (age 65 y+), IM, Quadv, 0.5mL 02/02/2023Influenza, FLUAD, (age 65 y+), IM, Trivalent PF, 0.5mL02/28/2016 Influenza, FLUZONE High Dose (age 65 y+), IM, Quadv, 0.7mL02/01/2022,02/03/2021, 02/03/2021,01/25/2020Influenza, FLUZONE High Dose, (age 65 y+), IM, Trivalent PF, 0.5mL01/30/2025,02/11/2024,02/14/2019,02/28/2018,02/19/2017,03/13/2015 Influenza, Intradermal, Preservative free03/24/2015Pneumococcal, PCV-13, PREVNAR 13, (age 6w+), IM, 0.5mL03/04/2016,05/01/2015Pneumococcal, PPSV23, PNEUMOVAX 23, (age 2y+), SC/IM, 0.5mL02/28/2018,03/24/2011RSV, ABRYSVO, ( or age 60y+), PF, IM, 0.5mL02/23/2023Zoster Live (Zostavax)10/04/2013,02/26/2012Zoster Sobeggt85/ Family History Medical HistoryRelationNameCommentsArthritisFatherJosephDepressionFatherJoseph Heart DiseaseFatherJosephHeart SurgeryFatherJosephMental IllnessFatherJoseph Thyroid DiseaseFatherJosephAnemiaMotherHelenArthritisMotherHelenDepressionMother HelenDiabetesMotherHelenHigh Blood PressureMotherHelenHypertensionMotherHelen Mental IllnessMotherHelenThyroid DiseaseMotherHelenAllergiesSister 1CarmAsthma Sister 1CarmDiabetesSister 1CarmMental IllnessSister 1CarmRelationNameStatus CommentsFatherJosephDeceasedMaternal GrandfatherDeceasedMaternal Grandmother DeceasedMotherHelenDeceasedPaternal GrandfatherDeceasedPaternal Grandmother DeceasedSister 1CarmAliveSister 2AliveSister 3Alive Social History Tobacco UseTypesPacks/DayYears UsedDateSmoking Tobacco: FormerCigarettes0.461633 - 1975Smokeless Tobacco: Never Tobacco Cessation:Counseling Given: Not [...] times a week03/27/2024How often do you attend jehovah's witness or adventist services?1 to 4 times per year03/27/2024 Do you belong to any clubs or organizations such as jehovah's witness groups, unions, fraternal or athletic groups, or school groups?Yes03/27/2024How often do you attend meetings of the clubs or organizations you belong to?More than 4 times per year03/27/2024re you , , , , never , or living with a partner?Never xcvoppx8803/27/2024UDIT-CAnswerDate RecordedQ1: How often do you have a drink containing alcohol?Never03/27/2024Q2: How many drinks containing alcohol do you have on a typical day when you are drinking? Patient does not drink03/27/2024Q3: How often do you have six or more drinks on one occasion?Never03/27/2024HQ-2AnswerDate RecordedPHQ-9 Total Moxud70806/04/2024 Exercise Vital SignAnswerDate RecordedOn average, how many [...] steady place to sleep or slept in [facility] (including now)?No 10/01/2023Housing Stability Vital SignAnswerDate RecordedIn the last 12 months, was there a time when you were not able to pay the mortgage or rent on time?No 04/11/2025In the past 12 months, how many times have you moved where you were living?111/19/2025At any time in the past 12 months, were you homeless or living in a skilled nursing (including now)?No04/11/2025Humiliation, Afraid, Rape, and Kick questionnaireAnswerDate [...] relatives?Twice a week04/11/2025How often do you attend jehovah's witness or adventist services?Never04/11/2025Do you belong to any clubs or organizations such as jehovah's witness groups, unions, fraternal or athletic groups, or school groups?Yes04/11/2025How often do you attend meetings of the clubs or organizations you belong to?More than 4 times per year04/11/2025re you , , , , never , or living with a partner?Never wjtfydm3204/11/2025UDIT-CAnswerDate RecordedQ1: How often do you have a [...] housing, medical care, and heating?Not hard at all04/11/2025[facility] [place] [facility] - Occupational Stress QuestionnaireAnswerDate RecordedDo you feel stress - tense, restless, nervous, or anxious, or unable to sleep at night because yourmind is troubled all the time - these days?To some ocgpwh1904/11/2025Exercise Vital SignAnswerDate Recorded On average, how many [...] Domain Source: IP Abuse Screening AnswerDate RecordedPhysical cgslkNzjudd01/08/2025Verbal bkvhbUrewaw15/08/2025 Emotional dxkrgRdougl66/08/2025Financial civnbIvjosu33/08/2025Sexual abuseDenies 09/28/2024CommentsNoSex and Gender InformationValueDate RecordedSex Assigned at ZhyixKgpdtb28/27/2020 5:43 PM EDTLegal VefOnlvcr80/10/2013 10:08 AM ESTGender SabwzerqCimyrs17/27/2020 5:43 PM EDTSexual OrientationStraight 10/18/2019 5:43 PM EDT Last Filed Vital Signs Vital SignReadingTime TakenCommentsBlood Tkvpgaiu575/6904/11/2025 9:43 AM EST Zmcbf606204/11/2025 9:43 AM KKGLnrztrwybey90.3 ??C (97.4 ??F)03/21/2025 8:05 AM EDTRespiratory Cmzj232205/27/2024 11:18 AM ESTOxygen Txilssmzyo25%03/27/2025 11:18 AM ESTInhaled Oxygen Concentration--Qjnlbk34.5 kg (162 lb)04/11/2025 9:43 AM EST Bjwppf867.9 cm (5' 1 )04/11/2025 9:43 AM ESTBody Mass Index30.6104/11/2025 9:43 AM EST Plan of Treatment DateTypeDepartmentCare Team (Latest Contact Info)Kklfsthjvjt47/22/2026 1:00 PM ESTOffice Visit [facility] Part of [address] [place] [phone] Mj Alvarenga MD [address] [place] [address], [address] [place] [phone] sympotm check06/26/2025 11:30 AM ESTOffice Visit [facility] on Main [address] [phone] Sandra Alvares, GIFT OFFICER - [address] [phone] 3 months f/u with psiprf3210/02/2025 1:30 PM EDTOffice Visit Magnus Shay MD [address] [place] [address] [place] [address] Magnus Shay MD [address] [place] [address], [facility] [place] [address] 6 month gc04/24/2026 11:00 AM ESTOffice Visit Magnus Shay MD [address] [place] [address] [place] [address] Magnus Shay MD [address] [place] [address], [facility] A [place] [phone] awv12/24/2026 2:15 PM EDTOffice Visit [facility] Part of [address] [place], [place] [phone] Destinee Coughlin, GIFT OFFICER - CN [address] [place] [address] yearly--last 12/19/2024--MedicareHealth MaintenanceDue DateLast DoneComments DTaP/Tdap/Td vaccine (1 - Tdap)1968Fecal-DNA (Cologuard): Average risk 1994Sigmoidoscopy/CT txkeldzotkne88/30/1995Shingles vaccine (2 of 3) , 10/04/2013, 02/26/2012Diabetic foot exam12/14/2024 12/15/2023, 03/17/2022, 03/12/2021, Additional history existsHepatitis A vaccine (1 of 2 - Risk 2-dose series)09/25/2025Postponed from 1968 (Patient Refused)A1C test (Diabetic or Prediabetic), 05/02/2024, 05/02/2024, Additional history existsDiabetic Alb to Cr ratio (uACR) test , 03/25/2015 (Previously completed)Nwqqlm6409/26/2025 09/26/2024, 09/21/2023, 03/10/2022, Additional history existsFIT/FOBT: Average riskGFR test (Diabetes, CKD 3-4, OR last GFR 15-59) /, 09/29/2024, 09/28/2024, Additional history existsDiabetic retinal exam/, 03/11/2023, 03/10/2022, Additional history existsDepression Xanswj34/04/2025, 04/04/2025nnual Wellness Visit (Medicare), 03/27/2024, 03/24/2023, Additional history lwuqthGekspdyqtkt90, 09/26/2015, 08/22/2002 (Previously completed)Colorectal Cancer Ywermh3612/03/2026Hepatitis C screenAddressed 09/25/2015 (Declined)Overridden with the intention of not completing the topic Pneumococcal 50+ years AbgwwpkSgcozqjvc43/08/2018, 03/04/2016, 05/01/2015, Additional history existsDEXA (modify frequency per FRAX score)Completed 10/30/2022, 09/19/2014 (Previously completed)Respiratory Syncytial Virus (RSV) or age 60 yrs+Otffpmowr61/03/2023OVID-19 BfkipauGczuwxmli73/09/2025, 02/25/2024, 08/13/2023, Additional history existsFlu jmcvhwoSikhubgkj04/09/2025, 02/11/2024, 02/11/2024, Additional history existsBreast cancer screen Qtjqeniffkit83/25/2025, 02/15/2024, 02/15/2024, Additional history exists Hepatitis B vaccineDiscontinuedHib vaccineAged OutNo longer eligible based on patient's age to complete this topicMeningococcal (ACWY) vaccineAged OutNo longer eligible based on patient's age to complete this topicMeningococcal B vaccineAged OutNo longer eligible based on patient's age to complete this topic Polio vaccineAged OutNo longer eligible based on patient's age to complete this topic Medical Devices ImplantedTypeAreaManufacturerDevice IdentifierShelf Expiration DateModel / Serial / LotKit Lead Sure Scan Interstim Mri - [id number] Implanted:Qty: 1 on 08/05/2021 by [facility]StimulatorMEDTRONIC USA INC-[id number] / / [id number] Neurostimulator [id number] Thk3in Torq [facility] Prod - [id number] Implanted:Qty: 1 on 08/05/2021 by [facility]-[id number] / [id number] / Description:PIN# [id number] [employer] Neurostimulator - [id number] Implanted:Qty: 1 on 03/21/2025 [facility]06/20/2026/ [id number] / Procedures Procedure NamePriorityDate/TimeAssociated DiagnosisCommentsMEAS,POST-VOID RES,US,NON-SZFPOZOQuvfjsb75/04/2025 1:48 PM EST Mixed incontinence Nocturia NV OPEN INSJ/RPLCMT INTEGRATED NSTIMJ SYS PTN SUBQ1 7:22 AM EDT Overactive bladder Mixed incontinence Case Notes SS/ Myah 03/19/25[employer]- Special Needs SS/ Myah 03/19/25[employer]onic- LMSXDOLVXLRISAUEDJyfzjim96/17/2025 10:34 AM EDT Mixed incontinence OAB (overactive bladder) Microhematuria Bladder wall thickening HM DULACQUNHADFmkfjbs61/25/2025 3:49 PM EDTCT KJBQASYOESK28/24/2025 5:47 PM EDT Mixed incontinence Suprapubic pain CULTURE, FXUKHYopnpys75/24/2025 5:04 PM EDT Mixed incontinence Suprapubic pain URINALYSIS WITH JVECLGOTNCDPkidxqu16/24/2025 5:03 PM EDT Mixed incontinence Suprapubic pain BUN & BIBDGIQKKYZdjsmnn44/24/2025 4:41 PM EDT Mixed incontinence URINALYSIS WITH WZFTMWYPWXEUmfymtl71/16/2025 2:50 PM EDT Nocturia Mixed incontinence CULTURE, FZZDDEvdvqis56/16/2025 2:50 PM EDT Nocturia Mixed incontinence CLARA,POST-VOID RES,US,NON-ZWTLYYDYdfhfrh63/16/2025 2:39 PM EDT Nocturia Mixed incontinence BLOOD OCCULT STOOL DIAGNOSTICSunquest Label Print09/29/2024 6:45 AM EDT ALBUMIN/CREATININE RATIO, OMUGONgarjzb70/06/2025 1:45 PM EDT LIPID XAMAPPhohzyx21/06/2025 1:41 PM EDT HEMOGLOBIN R5WUkywjop98/06/2025 11:36 AM EDT DIABETES EYE PGHYYqplgmr17/21/2024 DIABETES FOOT HVCHTalvxfd09/24/2024 Type 2 diabetes mellitus without complication, without long-term current use of insulin (HCC) / metformin DEXA DLLASotywol21/09/2023HM GFOZXYDQQREUhevgsx94/13/2017from Last 3 Months or Most Recently Relevant to Health Maintenance Results * MAMMOGRAPHY (02/15/2025 3:49 PM EDT)Anatomical RegionLateralityModality Other Narrative Authorizing ProviderResult TypeResult StatusSusan Lisa Coughlin GIFT OFFICER - CNM HEALTH MAINTENANCEFinal Result * CT UROGRAM (02/14/2025 5:47 PM EDT)Anatomical RegionLateralityModalityAbdomen, PelvisComputed TomographySpecimen (Source)Anatomical Location / Laterality Collection Method / VolumeCollection TimeReceived Time02/14/2025 8:12 PM EDT Impressions 02/14/2025 8:21 PM EDT 1. Punctate nonobstructing calculus within the upper pole collecting system of the right kidney, and lower pole portion of the left collecting system. 2. Urinary bladder wall appears diffusely thickened, with a mild degree of surrounding inflammation suggesting cystitis. 3. Cirrhotic morphology of the liver, with splenomegaly, and multiple varices within the upper abdomen. ??Findings were noted previously 4. Cholelithiasis without evidence [...] with coronary arterial calcifications. Small pericardial effusion. Narrative 02/14/2025 8:21 PM EDT EXAMINATION: CT UROGRAM 02/14/2025 2:47 pm TECHNIQUE: [...] again demonstrated within the left lung base. ??No focal area of consolidation is present. ??Cardiomegaly is noted, with coronary arterial calcifications. ??Small pericardial effusion is noted. Kidneys and Urinary Tract: Simple appearing cortical cyst formation is noted on the kidneys bilaterally. ??Largest cyst is within the lower pole of the right kidney, and measures 5.7 cm. ??No routine follow-up imaging is recommended. ??Unenhanced images demonstrate a punctate calculus within the upper pole collecting system of the right kidney, and lower pole portion of the left collecting system. ??Postcontrast images demonstrate the nephrogram to be symmetric bilaterally. ??No evidence of hydronephrosis is present. Ureters are nondilated. ??Urinary bladder wall appears diffusely thickened, with a mild degree of surrounding inflammation suggesting cystitis. ??Bladder is incompletely distended. ??This does limit evaluation for cystitis. Organs: Liver is again noted to be cirrhotic in morphology. ??Splenomegaly is present, secondary to portal hypertension. ??Cholelithiasis is present without evidence of cholecystitis. ??Adenomatous thickening of the adrenal glands is again demonstrated. ??No suspicious adrenal nodules are present. ??No acute abnormalities present involving the pancreas. GI/Bowel: Small hiatal hernia is noted. ??Circumferential wall thickening is present involving the GE junction distal esophagus. ??Enlarged lymph nodes are present adjacent to the distal esophagus, largest measuring 12 x 10 mm. Endoscopy is recommended to further evaluate the distal esophagus and GE junction, light of the adjacent enlarged lymph nodes. ??No evidence of small-bowel obstruction is present. ??Scattered colonic diverticula are present without evidence of diverticulitis. ??A 1.3 cm lipoma or ingested piece of fat is present within the right colon. Pelvis: The uterus is surgically absent. ??Urinary bladder is incompletely distended. ??Bladder wall appears thickened, with surrounding inflammation, suggesting cystitis. Peritoneum/Retroperitoneum: No evidence of aneurysm formation is present. Recannulization of the paraumbilical vein is demonstrated, multiple varices present within the upper abdomen. ??Small amount of free fluid is present within the pelvis. ??No free air is noted. ??Scattered mesenteric lymph nodes are present and are nonspecific. Bones/Soft Tissues: Grade 1 degenerative anterolisthesis is present at the L4-5 level. ??Osteopenia is noted. ??No acute or aggressive osseous abnormality is present. ??Patient is status post prior total left hip arthroplasty. ??Focal hernia defect is present involving the inferolateral left abdominal wall, with fat herniating through the defect within the abdominal wall musculature. Cutaneous varices are present within the lower anterior abdominal wall. Procedure Note Joesph Peck, DO - 02/14/2025 EXAMINATION: CT UROGRAM 02/14/2025 2:47 pm TECHNIQUE: CT of the abdomen and pelvis was performed before and after the administration of intravenous contrast as per CT urogram protocol. Multiplanar reformatted images as well as MIP urogram images are providedfor review. Dose modulation, iterative reconstruction, and/or weight based adjustment of the mA/kV was utilized to reduce the radiation dose to aslow as reasonably achievable. COMPARISON: CT scan dated September 28, 2024 HISTORY: ORDERING SYSTEM PROVIDED HISTORY: Mixed incontinence FINDINGS: Lower Chest: A densely calcified granuloma is again demonstrated withinthe left lung base. No focal area of consolidation is present. Cardiomegalyis noted, with coronary arterial calcifications. Small pericardial effusionis noted. Kidneys and Urinary Tract: Simple appearing cortical cyst formation isnoted on the kidneys bilaterally. Largest cyst is within the lower pole ofthe right kidney, and measures 5.7 cm. No routine follow-up imaging is recommended. Unenhanced images demonstrate a punctate calculus withinthe upper pole collecting system of the right kidney, and lower pole portionof the left collecting system. Postcontrast images demonstrate thenephrogram to be symmetric bilaterally. No evidence of hydronephrosis is present. Ureters are nondilated. Urinary bladder wall appears diffuselythickened, with a mild degree of surrounding inflammation suggesting cystitis.Bladder is incompletely distended. This does limit evaluation for cystitis. Organs: Liver is again noted to be cirrhotic in morphology. Splenomegalyis present, secondary to portal hypertension. Cholelithiasis is presentwithout evidence of cholecystitis. Adenomatous thickening of the adrenal glandsis again demonstrated. No suspicious adrenal nodules are present. Noacute abnormalities present involving the pancreas. GI/Bowel: Small hiatal hernia is noted. Circumferential wall thickeningis present involving the GE junction distal esophagus. Enlarged lymph nodesare present adjacent to the distal esophagus, largest [...] The uterus is surgically absent. Urinary bladder isincompletely distended. Bladder wall appears thickened, with surroundinginflammation, suggesting cystitis. Peritoneum/Retroperitoneum: No evidence of aneurysm formation ispresent. Recannulization of the paraumbilical vein is demonstrated, multiplevarices present within the upper abdomen. Small amount of free fluid is present within the pelvis. No free air is noted. Scattered mesenteric lymphnodes are present and are nonspecific. Bones/Soft Tissues: Grade 1 degenerative anterolisthesis is present atthe L4-5 level. Osteopenia is noted. No acute or aggressive osseousabnormality is present. Patient is status post prior total left hip arthroplasty.Focal hernia defect is present involving the inferolateral left abdominalwall, with fat herniating through the defect within the abdominal wallmusculature. Cutaneous varices are present within the lower anterior abdominal wall. IMPRESSION: 1. Punctate nonobstructing calculus within the upper pole collectingsystem of the right kidney, and lower pole portion of the left collectingsystem. 2. Urinary bladder wall appears diffusely thickened, with a mild degreeof surrounding inflammation suggesting cystitis. 3. Cirrhotic morphology of the liver, with splenomegaly, and multiplevarices within the upper abdomen. Findings were noted previously 4. Cholelithiasis without evidence of cholecystitis. 5. Small hiatal hernia. Circumferential wall thickening is presentinvolving the GE junction distal esophagus. Enlarged lymph nodes are presentadjacent to the distal esophagus, largest measuring 12 x 10 mm. Endoscopy is recommended to further evaluate the distal esophagus and GE junction,light of the adjacent enlarged lymph nodes. 6. Scattered colonic diverticula without evidence of diverticulitis. 7. Focal hernia defect involving the inferolateral left abdominal wall,with fat herniating through the defect within the abdominal wall musculature. 8. Cardiomegaly with coronary arterial calcifications. Small pericardial effusion. Authorizing ProviderResult TypeResult StatusBerolando Alvares APRN - CNPIMG CT ORDERABLESFinal Result * (ABNORMAL) Culture, Urine (02/14/2025 5:04 PM EDT) Only the most recent of2 resultswithin the time period is included. ComponentValueRef RangeTest MethodAnalysis TimePerformed AtPathologist Signature Specimen Description.CLEAN CATCH URINE02/14/2025 5:04 PM [facility] LABSpecial RequestsSite: Urine02/14/2025 5:04 PM [facility] LABCultureSALMONELLA SPECIES >100,000 CFU/ML(AA)02/14/2025 5:04 PM EDT [facility] ImpactRxSpecimen (Source)Anatomical Location / LateralityCollection Method / VolumeCollection TimeReceived TimeUrineURINE SPECIMEN / Unknown 02/14/2025 5:04 PM EDT02/14/2025 5:05 PM EDT Narrative OrganismAntibioticMethodSusceptibilitySalmonella groupampicillinBACTERIAL SUSCEPTIBILITY PANEL TERESA <=2: Sensitive Salmonella groupcefepimeBACTERIAL SUSCEPTIBILITY PANEL TERESA <=0.12: Sensitive Salmonella grouplevofloxacinBACTERIAL SUSCEPTIBILITY PANEL TERESA <=0.12: Sensitive Salmonella grouptrimethoprim-sulfamethoxazoleBACTERIAL SUSCEPTIBILITY PANEL TERESA <=20: Sensitive Authorizing ProviderResult TypeResult StatusBerolando Alvares APRN - EXPEDITION SUPERVISOR MICROBIOLOGY - GENERAL ORDERABLESFinal ResultPerforming OrganizationAddress City/State/ZIP CodePhone Number [facility] [address] [place] [address], [facility] [phone] [facility] Impact[facility] [address] [place] [id number], [facility] [phone] * (ABNORMAL) Urinalysis with Microscopic (02/14/2025 5:03 PM EDT) Only the most recent of2 resultswithin the time period is included. ComponentValueRef RangeTest MethodAnalysis TimePerformed AtPathologist Signature Color, UABrown(A)Pwgmql3702/14/2025 5:03 PM [facility] Turbidity UACloudy(A)Clear02/14/2025 5:03 PM [facility] Glucose, UrNEGATIVENEGATIVE mg/dL02/14/2025 5:03 PM [facility] LABBilirubin, QpzaxWRQBYTJJOMVFTZNV46/24/2025 5:03 PM [facility] LABKetones, UrineTRACE(A)NEGATIVE mg/dL02/14/2025 5:03 PM EDT [facility] LABSpecific [place], UA1.025(H)1.010 - 1.020 02/14/2025 5:03 PM [facility] LABUrine Hgb3+(A)NEGATIVE 02/14/2025 5:03 PM [facility] LABpH, Urine5.55.0 - 9.0 02/14/2025 5:03 PM [facility] LABProtein, UA2+(A)NEGATIVE mg/dL02/14/2025 5:03 PM [facility] LABUrobilinogen, Urine Normal0.0 - 1.0 EU/dL02/14/2025 5:03 PM [facility] Nitrite, KqfduABOQLMRUWEBUGOWR15/24/2025 5:03 PM [facility] LABLeukocyte Esterase, UrineSMALL(A)RCTVUKAC88/24/2025 5:03 PM [facility] LABWBC, UA10 TO 200 - 5 /HPF02/14/2025 5:03 PM [facility] LABRBC, UA50 TO 1000 - 2 /HPF02/14/2025 5:03 PM [facility] LABEpithelial Cells, UA0 TO 20 - 25 /HPF02/14/2025 5:03 PM EDT [facility] LABRenal Epithelial, UA0 TO 20 /HPF02/14/2025 5:03 PM [facility] LABBacteria, UA1+(A)None02/14/2025 5:03 PM [facility] LABSpecimen (Source)Anatomical Location / LateralityCollection Method / VolumeCollection TimeReceived TimeUrineURINE SPECIMEN / Siptbxw5202/14/2025 5:03 PM EDT02/14/2025 5:04 PM EDT Narrative Authorizing ProviderResult TypeResult StatusSandra Alvares APRN - CNPURINE ORDERABLESFinal ResultPerforming OrganizationAddressCity/State/ZIP CodePhone Number [facility] [address] [place] [id number] [phone] * (ABNORMAL) BUN & Creatinine (02/14/2025 4:41 PM EDT)ComponentValueRef Range Test MethodAnalysis TimePerformed AtPathologist HfmojvkkuRWE93(H)8 - 23 mg/dL 02/14/2025 4:41 PM [facility] LABCreatinine1.4(H)0.50 - 0.90 mg/dL02/14/2025 4:41 PM [facility] LABEst, Glom Filt Rate40(L)>60 mL/min/1.62p04502/14/2025 4:41 PM [facility] LABComment: ? These results are not intended for use in patients <18 years of age. ? eGFR results are calculated without a race factor using the 2020 CKD-EPI equation. Careful clinical correlation is recommended, particularly when comparing to results calculated using previous equations. The CKD-EPI equation is less accurate in patients with extremes of muscle mass, extra-renal metabolism of creatine, excessive creatine ingestion, or following therapy that affects renal tubular secretion. Specimen (Source)Anatomical Location / LateralityCollection Method / Volume Collection TimeReceived TimeBLOOD SPECIMEN / Uepgrjs4802/14/2025 4:41 PM EDT 02/14/2025 4:42 PM EDT Narrative Authorizing ProviderResult TypeResult StatusBerolando Alvares GIFT OFFICER - EXPEDITION SUPERVISOR CHEMISTRY ORDERABLESFinal ResultPerforming OrganizationAddressCity/State/ZIP CodePhone Number [facility] [address] [phone] * (ABNORMAL) Blood occult stool #1 (09/29/2024 6:45 AM EDT)ComponentValueRef RangeTest MethodAnalysis TimePerformed AtPathologist SignatureOccult Blood, Stool #1POSITIVE(A)GSGQPDBK74/09/2025 6:45 AM [facility] LABDate, Stool #[id number]/29/2024 6:45 AM [facility] Time, Stool #[id number] 6:45 AM [facility] Specimen (Source)Anatomical Location / LateralityCollection Method / Volume Collection TimeReceived TimeSTOOL SPECIMEN / Xknpvyv9709/29/2024 6:45 AM EDT 09/29/2024 6:54 AM EDT Narrative Authorizing ProviderResult TypeResult StatusMevarun Washington APRN - CNPBODY FLUIDS AND STOOLS ORDERABLESFinal ResultPerforming OrganizationAddressCity/State/ZIP CodePhone Number [facility] [address] [phone] * Albumin/Creatinine Ratio, Urine (09/26/2024 1:45 PM EDT)ComponentValueRef RangeTest MethodAnalysis TimePerformed AtPathologist Signature Albumin/Creatinine Ratio43.0mg/gAlbumin Urine1.3MG/DLCreatinine, Ur30.17mg/dL Specimen (Source)Anatomical Location / LateralityCollection Method / Volume Collection TimeReceived TimeUrine (Urine) Narrative Authorizing ProviderResult TypeResult StatusMark Pb CHOI ORDERABLES Edited Result - Final * Lipid Panel (09/26/2024 1:41 PM EDT)ComponentValueRef RangeTest MethodAnalysis TimePerformed AtPathologist SignatureCholesterol, Fcwmj484xv/iPARI7155 - 70 mg/dLLDL Dsdrutdtlmg13.9Gkohxlmhodztj558of/dLChol/HDL Ratio2.3KCQI26.6mg/dL Cholesterol non HDLSpecimen (Source)Anatomical Location / LateralityCollection Method / VolumeCollection TimeReceived TimeBloodBLOOD SPECIMEN / Unknown Narrative Authorizing ProviderResult TypeResult StatusMark Pb Shay MDCHEMISTRY ORDERABLESEdited Result - Final * Hemoglobin A1C (09/26/2024 11:36 AM EDT)ComponentValueRef RangeTest Method Analysis TimePerformed AtPathologist SignatureHemoglobin A1C6.4%Estimated Avg Oenqstm833Ijtokwhr (Source)Anatomical Location / LateralityCollection Method / VolumeCollection TimeReceived TimeBloodBLOOD SPECIMEN / Unknown Narrative Authorizing ProviderResult TypeResult StatusMark Pb Shay MDCHEMISTRY ORDERABLESEdited Result - Final * DIABETES EYE EXAM (03/13/2024)ComponentValueRef RangeTest MethodAnalysis TimePerformed AtPathologist SignatureDiabetic RetinopathyNegativeSpecimen (Source)Anatomical Location / LateralityCollection Method / VolumeCollection TimeReceived Time03/13/2024 Narrative Authorizing ProviderResult TypeResult StatusProvider UnknownHEALTH MAINTENANCE Edited Result - Final * DIABETES FOOT EXAM (12/15/2023) Narrative Authorizing ProviderResult TypeResult StatusMark Pb Shay MDHEALTH MAINTENANCEFinal Result * DEXA SCAN (10/30/2022)Anatomical RegionLateralityModalityOther Narrative Authorizing ProviderResult TypeResult StatusHistorical Provider MDHEALTH MAINTENANCEFinal Result * COLONOSCOPY (12/03/2016) Narrative Authorizing ProviderResult TypeResult StatusHistorical Provider MDHEALTH MAINTENANCEFinal Result from Last 3 Months or Most Recently Relevant to Health Maintenance Insurance Advance Directives * Full Code (Latest Code Status on File) Date ActivatedDate AlokmsnayqkVetympgb01/29/2025 6:43 AM03/21/2025 11:25 AM * Full Code Date ActivatedDate InactivatedComments09/28/2024 1:46 PM09/29/2024 8:18 PM * Full Code Date ActivatedDate InactivatedComments3/ 12:10 PM08/05/2021 6:52 PM * Full Code Date ActivatedDate WhikeimqfarFnvpvwhr29/15/2016 12:51 PM04/07/2016 6:11 PM * Full Code Date ActivatedDate KsbyxggzcwaXzzhjksx05/1/2016 7:53 AM03/24/2016 2:13 PM Care Teams Team MemberRelationshipSpecialtyStart DateEnd Date Magnus Shay MD [address] [place] [address], [facility] [place] [address] PCP - GeneralInternal Medicine07/20/14
--- OUTSIDE RECORDS SUMMARY | 2025-04-13 12:19 | XMS_ITS | CCD ---
Author Organization [facility] Care Team Providers Care Senior Engineering Team Leader Name Role Phone Vladimir Greco Primary Care Physician Unavail able Vladimir Greco Unavailable Unavailable Cooper Eller Primary Care Provider [phone] Vladimir Greco Primary Care Physician Unavail able Vladimir Greco Primary Care Physician Unavail able Cooper Eller Primary Care Provider [phone] Vladimir Greco Primary Care Physician Unavail able Vladimir Greco Primary Care Physician Unavail able Vladimir Greco Primary Care Physician Unavail able Rafita FOSTER, Cooper Ambriz Primary Care Provider [phone] Cooper Eller MD Primary Care Provider Cooper Eller MD Primary Care Provider [phone] COOPER ELLER Primary Care Physician Unavailable Primary Care Provider Unavailnina ELLER, DR GAMBOA Attending Unavailable RAFITA, DR GAMBOA Consulting Unavailable [...] ANDREW Consulting Unavailable SANDRO ., DR KELLY Cardoza Attending Unavailable RAFITA, [...] KELLY Cardoza Attending Unavailable TIAN ., DR MENDOZA S Admitting Unavailable TIAN ., DR KELLY Cardoza [...] DR GAMBOA Primary Care Unavailable LAKSHMIPATHY ., NARENDRANATH Admitting Jeanie vailable TIAN ., DR KELLY [...] CALLEJAS ., ANDREW Consulting Unavailable Nikko Barbosa Unavailable MARCO ANTONIO, DR SCHULZ Admcheryle Unavailable MARCO ANTONIO, DR SCHULZ Attending Unavailable RAFITA, DR GAMBOA Primary Care Unavailable DR DESTINEE COUGHLIN Consulting Unavailable Geri Vergara MD Unavailable [phone] Geri Vergara Attending Unavailable Geri Vergara Admitting [...] Referring Unavailable Janie Henning Attending Unavailable Aline BURK-WET ROLLER, Dee Unavailable Vladimir Jose Primary Care Physician Unava ilable Vladimir Jose Unavailable Unavailable Geri Vergara MD Unavailable Sukumar FOSTER, Andrae Pineda Unavailable Cooper Eller MD Primary Care Provider [phone] KEITH GABRIEL Attending Unavailable Elvis Adame Consulting Unavailable COOPER ELLER Primary Care Unavailable KEITH GABRIEL Admitting Unavailable COOPER ELLER Primary Care Unavailable KEITH GABRIEL Admitting Unavailable KEITH GABRIEL Attending Unavailable Cooper Eller MD Primary Care Provider [phone] Cooper Eller MD Primary Care Provider Andrae Patino MD Attending Unavailable Rafita FOSTER, Cooper Kirby Primary Care Unavailfrank Patino MD, Andrae Bradley Attending Unavailable Rafita FOSTER, Cooper Kirby Primary Care Unavailfrank Patino MD, Andrae Bradley Consulting Unavailable Sukumar FOSTER, Andrae Bradley Attending Unavailable Cooper Eller MD Primary Care Unavailfrank Patino MD, Andrae Bradley Attending Unavailable Cooper Eller MD Primary Care Unavaila COOPER Fernandes Primary Care Unavailable LAKISHA CORDOBA Attending Unavailable COOPER ELLER Referring Unavailable COOPER ELLER Referring Unavailable COOPER ELLER Primary Care Unavailable LAKISHA CORDOBA Attending Unavailable COOPER ELLER Primary Care Unavailable LAKISHA CORDOBA Referring Unavailable MARVIN II, RYLIE Brown Attending Unavailnina e MARVINRYLIE LONGORIA II Admitting Unavailabl COOPER Alarcon Primary Care Unavailable MARVIN II, RYLIE Brown Referring Unavailabl e MARVIN II, RYLIE Brown Attending Unavailabl e Unavailable Primary Care Provider Unavailabl e LISBET BRUSH Admitting Unavailable TERESA FAIRBANKS Referring Unavailable VERONICA, ANJELICA A Consulting Unavailable JUICE MELENDEZ Attending Unavailable JEANNIE ARELLANO Consulting Unavailable STEPANIC, JR., KEITH Maurice Attending Unavaila ble STEPANIC, JR., KEITH Maurice Attending Unavaila ble STEPANIC, JR., KEITH Maurice Referring Unavaila ble STEPANIC, JR., KEITH Maurice Referring Unavaila ble STEPANIC, JR., KEITH Maurice Attending Unavaila ble STEPANIC, JR., KEITH Maurice Referring Unavaila ble STEPANIC, JR., KEITH Maurice Attending Unavaila ble NAZEMI I, JOSE Consulting Unavailable COOPER ELLER Primary Care Unavailable COOPER ELLER Attending Unavailable COOPER ELLER Admitting Unavailable COOPER ELLER Primary Care Unavailable MARY PRASHANT W Referring Unavailable MARY PRASHANT W Referring Unavailable COOPER ELLER Primary Care Unavailable PARSGRIS PRASHANT W Referring Unavailable COOPER ELLRE Primary Care Unavailable MARY PRASHANT W Referring Unavailable COOPER ELLER Primary Care Unavailable MARY PRASHANT W Referring Unavailable COOPER ELLER Primary Care Unavailable PARSGRIS, PRASHANT W Referring Unavailable COOPER ELLER Primary Care Unavailable COOPER ELLER Primary Care Unavailable SANDRA ALVARENGA Admitting Unavailable SANDRA ALVARENGA Attending Unavailable Cooper Eller MD Primary Care Provider [phone] Tammy Mckeon APRN Attending Provider [phone] NON STAFF Primary Care Provider Unavailabl e GERI VERGARA Referring Unavailable PROVIDER, UNKNOWN Admitting Unavailable PROVIDER, UNKNOWN Attending Unavailable GERI VERGARA Referring Unavailable PROVIDER, UNKNOWN Admitting Unavailable PROVIDER, UNKNOWN Attending Unavailable PROVIDER, UNKNOWN Admitting Unavailable GERI VERGARA Attending Unavailable GERI VERGARA Attending Unavailable PROVIDER, UNKNOWN Admitting Unavailable Tammy Mckeon Attending Unavailable Tammy Mckeon Admitting Unavailable NON STAFF Primary Care Unavailable Allergies Allergy ClassificationReported Allergen(s)Allergy TypeDate of OnsetReaction(s) Facilitynickel sulfate (1 source)nickel sulfateDrug Lubfqly04-89-6006TvdeIDKSalem Regional Medical Center Opioid Agonists (1 source)MorphineDrug Zqgebkl38-52-9980GwulYUFAvita Health SystemPenicillins (antibiotic) (1 source)PenicillinsDrug Arpicql27-40-2308TssbpeswWNZ [facility] Sulfites (1 source)SulfitesSubstance Dqvohrh19-69-8933Kcyqwds, SneezingOSU [facility] (2 sources)Morphine; Translations: [Morphine Sulfate]Drug AllergyrashBlanSageWest Healthcare - [facility]ander BusinessElite (20 sources)nickel; Translations: [Nickel]Drug Xlkwpuu83-57-3854Zgij, Itching (finding), OtherChillicothe Hospital BusinessElite (20 sources)Penicillins; Translations: [PENICILLINS]Allergy to substance (disorder)76-34-5297BpakhbrfGbjpxcmrg [employer] (12 sources)Sulfites/Food PreservativesAllergy to substance (disorder)[facility] [employer] (20 sources)Morphine; Translations: [Morphine Sulfate]Drug Gkhjxzh74-01-3668 Rash, Eruption of skin (disorder), [place]chingBl[place], [place] (20 sources)Sulfites; Translations: [sulfites]Propensity to adverse reactions to nosq39-93-4164Erklb, Itching, SneezingBlanchester, [place] (11 sources)LeucineDrug Mxatxyf90-42-8385[facility] (2 sources)Acetaminophen / oxyCODONEDrug Maztpjs01-27-1837QEBCOMMUNITY HEALTH SYSTEMS (8 sources)Penicillin; Translations: [penicillin]Drug AllergySwelling (morphologic abnormality)[facility] (1 source)Acetaminophen / oxyCODONEDrug Wmnjtkr01-02-7832Hzn [facility] (1 source)MorphineDrug Xllewmi45-01-9450Yhc [facility] (1 source)PenicillinDrug Wafutau86-35-0306Gtj [facility] (1 source)SulfitesDrug allergy (disorder)11-22-0254Eqq [facility] (1 source)Sulfur Based PreservativesDrug allergyItching (finding)[facility] (1 source)Lactose; Translations: [Lactose]Drug AllergyUniversity [facility]als [facility] (1 source)Sulfites; Translations: [Sulfite Allergy]Propensity to adverse reactions to food (disorder)[facility] (14 sources)Penicillin GDrug Fbjykxk45-74-5952LgfckfasPBYI Healthcare (16 sources)cyclobenzaprine; Translations: [CYCLOBENZAPRINE]Drug Allergy 59-74-9690NcuswqvapbrjfrEklsbFmhcyb Work Phone: (2 sources)SulfitesPropensity to adverse reactions to fbif15-19-6503CsgPonetg Health System Medications Current Medications MedicationDrug Class(es)DatesSig (Normalized)Sig (Original)acetaminophen 500 mg oral tablet (18 sources)Start: 89-98-5659iqkb 2 tablets by mouth every six hours as needed acetaminophen (TYLENOL EXTRA STRENGTH) 500 mg tablet Take 2 tablets (1,000 mg total) by mouth every6 (six) hours as needed. 11/24/2023 ActiveStart: 08-05-2021 End: 09-37-8368uslofjljdelrz (TYLENOL) tablet 650 mgAcetaminophen 500 MG capsule Activeacetaminophen 325 mg / HYDROcodone bitartrate 5 mg oral tablet (20 sources)Opioid AgonistStart: 09-26-2024 End: 06-58-0338pdey 1 tablet by mouth every eight hours as neededHYDROcodone- acetaminophen (NORCO) 5-325 mg per tablet Take 1 tablet by mouth every 8 (eight) hours as needed. 09/26/2024 10/06/2024 ActiveStart: 09-26-2024 End: 32-90-0621LDLBSbyuzwl-acetaminophen (NORCO) 5-325 MG per tablet Indications: Primary osteoarthritis involvingmultiple joints Take 1 tablet by mouth 2 times daily as needed for Pain for up to 10 days. Max Daily Amount: 2 tablets 20 tablet 09/26/2024 10/06/2024 ActiveStart: 89-68-3469gxmh 1 tablet by mouth twice daily as neededacetaminophen-hydrocodone 325 mg-5 mg oral tablet TAKE 1 TABLET BY MOUTH TWICE A DAY NEEDED Start Date: 05/19/22 Status: OrderedStart: 08-05-2021 End: 18-85-6455dnvy 1 tablet by mouth once as needed for pain1 tablet, Oral, ONCE PRN, Pain Moderate (4-6), Pain Severe (7-10), Starting on Wed08/05/21 at 1451,For 1 dose Maximum dose of acetaminophen is 4000 mg from all sources in 24 hours. PACU only End: 27-73-6427voev 1 tablet by mouth every four hours as neededhydroCODone- acetaminophen 5-325 MG tablet Take 1 tablet by mouth every 4 hours as needed. 11/29/2023 Discontinued (Therapy completed)take 2 tablets by mouth once as neededhydrocodone-acetaminophen (NORCO) 5-325 mg per tablet Take 2 Tablets by mouth. As needed 0 Suspendedacetaminophen 325 mg / oxyCODONE hydrochloride 5 mg oral tablet (1 source)Opioid AgonistStart: 04-03-2023 End: 38-77-7968jiyq 1-2 tablets by mouth every six hours as needed for pain oxyCODONE-acetaminophen (Percocet) 5-325 mg per tablet Indications: History of major orthopedic surgery Take 1-2 Tablets by mouth every 6 hours as needed for Pain for up to 11 days. 84 Tablet 0 04/03/2023 04/14/2023 ActiveAspirin (20 sources)Platelet Aggregation Inhibitor, Nonsteroidal Anti-inflammatory Drug Start: 18-67-1350hhuppnn 81 mg, Daily, Refills(s) 0 Start Date: 05/19/22 Status: OrderedStart: 94-96-0787ipkf 1 tablet by mouth once dailyaspirin EC 81 MG EC tablet Take 1 tablet by mouth daily 30 tablet 3 09/25/2015 Activetake 1 tablet by mouth once dailyaspirin 81 MG chewable tablet Take 1 tablet by mouth daily Active End: 72-63-7209Gzckfgz 500 MG tablet Take 81 mg by mouth daily. 11/29/2023 Discontinued (Therapy completed)atorvastatin 20 mg oral tablet (20 sources)HMG-CoA Reductase InhibitorStart: 78-87-0554Eguun: 20-41-3354nnys 1 tablet by mouth once dailyatorvastatin (LIPITOR) 20 MG tablet TAKE 1 TABLET BY MOUTH EVERY DAY 90 tablet 3 09/01/2024 ActiveStart: 05-27-2018 End: 99-01-2082exmq 1 tablet by mouth in the morningatorvastatin (Lipitor) 20 MG tablet Take 20 mg by mouth in the morning. 05/19/2022 Activebismuth subsalicylate (2 sources)Bismuthtake 0.5 tablet by mouth once dailyBismuth Subsalicylate (PEPTO-BISMOL PO) Take by mouth 1/2 tablet daily 0 Activetake 1 tablet by mouth once dailyBismuth Subsalicylate (PEPTO-BISMOL PO) Take by mouth 1 tablet daily 0 Activecalcium carbonate 1500 mg oral tablet (18 sources)take 1 tablet by mouth three times dailycalcium carbonate 600 MG TABS tablet Take 1 tablet by mouth 3 times daily Activetake 1 tablet by mouth once daily at breakfastcalcium carbonate (OS-TIA) 600 mg elemental (1,500 mg) tablet Take 1 tablet (600 mg total) by mouthdaily with breakfast. Activecalcium chloride 0.0014 meq/ml / potassium chloride 0.004 meq/ml / sodium chloride 0.103 meq/ml / sodium lactate 0.028 meq/ml injectable solution (4 sources)Start: 13-76-5612vhpapobz ringers iv infusionStart: 08-05-2021 IntraVENous, at 125 mL/hr, CONTINUOUS, Starting on Wed08/05/21 at 1515, PACU onlyStart: 68-64-0541igfgkgpu ringers infusionCalcium Citrate (20 sources)Start: 87-08-5036lngyvih citrate Daily, Refills(s) 0 Start Date: 05/19/22 Status: OrderedCalcium Citrate 150 MG CAPS Take by mouth 3 times daily. ActiveCALCIUM CITRATE PO Take 600 mg by mouth in the morning and 600 mg at noon and 600 mg in the evening. Activecalcium citrate 760 mg calcium /3.5 gram oral granules take 1500 by oral route dailyCarboxymethylcellulose (18 sources)Start: 47-12-6458glph 2 drop(s) into the eye(s) once daily as needed carboxymethylcellulose sodium (THERATEARS OPHT) Administer 2 drops to both eyes daily as needed. 11/24/2023 ActiveStart: 70-56-1458lgfh 2 drop(s) into the eye(s) once daily as neededcarboxymethylcellulose sodium (THERATEARS OPHT) Administer 2 drops to both eyes daily as needed. 11/24/2023 Carboxymethylcellulose Sodium (THERATEARS OP) Apply to eye Active Carboxymethylcellulose Sodium (EQ RESTORE PLUS LUBRICANT EYE OP) Restore-X Activecarvedilol 25 mg oral tablet (20 sources)alpha-Adrenergic Walker, beta-Adrenergic BlockerStart: 04-01-2025 Start: 73-26-8933rkwd 1 tablet by mouth twice dailycarvedilol (COREG) 25 MG tablet TAKE 1 TABLET BY MOUTH TWICE A DAY 180 tablet 3 01/01/2025 ActiveStart: 49-94-6056zdqu 1 tablet by mouth twice dailycarvedilol (COREG) 6.25 MG tablet Take 1 tablet by mouth 2 times daily 1 tablet 0 01/13/2022 ActiveceFAZolin 2000 mg injection (1 source)Cephalosporin AntibacterialStart: 02-15-2023 End: 12-59-6964biIEZlbio (ANCEF) 2,000 mg in dextrose 50 mL ivpbZyrtec (20 sources)Histamine-1 Receptor AntagonistStart: 06-94-5197Nuvrnu 10 mg, Daily, Refills(s) 0 Start Date: 05/19/22 Status: Orderedcetirizine (ZyrTEC Allergy) 10 MG tablet Take 10 mg by mouth. Activecholecalciferol 0.05 mg oral tablet (20 sources)Vitamin DCholecalciferol (Vitamin D) 50 MCG (2000 UT) TABS Take by mouth. Activetake 1 tablet by mouth once in the morningvitamin D (CHOLECALCIFEROL) 1000 UNIT TABS tablet Take 1 tablet by mouth in the morning and 1 tablet in the evening. Activetake 1 tablet by mouth in the morning cholecalciferol (Vitamin D-3) 50 MCG (2000 UT) tablet Take 1 tablet by mouth in the morning. Activetake 1 tablet by mouth at bedtimecholecalciferol 1,000 units tablet Take 1 tablet (1,000 Units total) by mouth in the morning and atbedtime. Activetake 1 tablet by mouth once dailyCholecalciferol (VITAMIN D3 PO) Take 1 tablet by mouth daily. Activetake 2 capsules by mouth once dailyVitamin D3 2,000 unit oral capsule take 2 capsules by oral route dailytake 1 tablet by mouth twice dailyvitamin D (CHOLECALCIFEROL) 1000 UNIT TABS tablet Take 1,000 Units by mouth 2 times daily 0 Activeclindamycin 150 mg oral capsule (12 sources)Lincosamide AntibacterialStart: 32-41-4733zfdnamejjmm (CLEOCIN) 150 MG capsule Take 4 tabs One hr prior to dental procedure 8 capsule 01/10/2025 ActiveStart: 07-14-2024 End: 13-89-6618otwiqyqzxqf (CLEOCIN) 150 mg capsule Take 1 capsule (150 mg total) by mouth. 07/14/2024 10/03/2024 Discontinued (Stop Taking at Discharge) Start: 89-06-7125fehpjrwemrf (CLEOCIN) 150 MG capsule TAKE 4 CAPSULES 1 HR BEFORE DENTAL WORK 4 capsule 07/14/2024 ActiveStart: 74-38-8663twwm 3 capsules by mouth every eight hoursclindamycin 150 mg Cap 450 mg = 3 cap(s), Oral, q8hr, # 90 cap(s), Refills(s) 0 Start Date: 05/19/22 Status: OrderedStart: 08-05-2021 End: 06-06-0087uhchfajjgkk (CLEOCIN) 900 mg in dextrose 5 % 50 mL IVPBCo Q-10 (5 sources)Start: 27-18-5984Bl Q-10 Daily, Refills(s) 0 Start Date: 05/19/22 Status: OrderedCoenzyme Q10 (CO Q 10 PO) (2 sources)take 1 tablet by mouth once dailyCoenzyme Q10 (CO Q 10 PO) Take 1 tablet by mouth daily. ActiveCoenzyme Q10 (COQ10 PO) (8 sources)Coenzyme Q10 (COQ10 PO) Take by mouth daily 0 ActiveCoenzyme Q10 (COQ10 PO) Take by mouth 0 ActivecycloSPORINE (RESTASIS) 0.05 % ophthalmic emulsion (3 sources)Start: 37-33-5755xwqr 1 drop(s) into the eye(s) in the morning cycloSPORINE (RESTASIS) 0.05 % ophthalmic emulsion Administer 1 drop to both eyes in the morning and 1 drop before bedtime. 11/24/2023 ActiveStart: 41-00-2661pwox 1 drop(s) into the eye(s) in the morningcycloSPORINE (RESTASIS) 0.05 % ophthalmic emulsion Administer 1 drop to both eyes in the morning and 1 drop before bedtime. ml dexamethasone phosphate 10 mg/ml injection (1 source)CorticosteroidStart: 02-15-2023 End: 49-05-6177hpcohjdhedmtf sod phosphate PF (DECADRON) 10 MG/ML injection diclofenac potassium 50 mg oral tablet (4 sources)Nonsteroidal Anti-inflammatory Drugdiclofenac (CATAFLAM) 50 MG tablet 50 mg 2 times daily 0 Activedocosahexaenoic acid 200 mg oral capsule (3 sources)Start: 61-29-8701kumf 1 capsule by mouth in the morning docosahexaenoic acid (EXPECTA LIPIL) 200 mg capsule Take 1 capsule (200 mg total) by mouth in the morning. 11/24/2023 Activeestradiol 0.1 mg/ml vaginal cream (7 sources)EstrogenStart: 99-51-5905Psrux: 66-49-1340isunceifp (ESTRACE VAGINAL) 0.1 MG/GM vaginal cream insert one inch of cream inside the vagina and place an additional dime sized amount to the urethra and inner labia every night for two weeks then three nights per week thereafter. Do NOT use plastic applicator. 42.5 g 3 11/09/2024 ActiveEye Multivitamin oral tablet (5 sources)Start: 00-93-6333Elr Multivitamin oral tablet Daily, Refill(s) 0 Start Date: 05/19/22 Status: Orderedferrous sulfate 325 mg oral tablet (6 sources)Start: 10-03-2024 End: 09-60-5243dzyd 1 tablet by mouth once daily at breakfastferrous sulfate 325 (65 FE) MG tablet Take 1 tablet (325 mg total) by mouth daily with breakfast for 30 days. 30 tablet 10/04/2024 11/03/2024 Active End: 75-40-6677ldjg 1 capsule by mouth once dailyiron 325 mg (65 mg iron) oral capsule, extended release 07/28/2017 take 1 capsule by oral route dailyFish Oils (17 sources)Start: 21-17-6553Zcgol-3 Fish Oil Daily, Refills(s) 0 Start Date: 05/19/22 Status: Ordered End: 85-97-7268xtnx 1 capsule by mouth once dailyFish Oil 500 mg oral capsule 11/27/2014 take 1 capsule by oral route dailyfurosemide 20 mg oral tablet (1 source)Loop DiureticStart: 65-94-1451ebog 1 tablet by mouth once daily as needed for edemafurosemide (LASIX) 20 MG tablet Take 1 tablet by mouth daily as needed (leg edema) 30 tablet 03/27/2024 ActiveHandicap Placard MISC (1 source)Start: 62-56-9770Xuqkewoc Placrosette MISC Indications: Bursitis of left hip, unspecified bursa by Does not apply route Duration; permanent placard 1 each 07/19/2023 ActivehydroCHLOROthiazide 12.5 mg oral tablet (20 sources)Thiazide DiureticStart: 21-58-0631Ytffp: 75-76-3600ecrv 1 tablet by mouth once dailyhydroCHLOROthiazide 12.5 MG tablet Take 1 tablet by mouth daily 90 tablet 3 10/18/2024 ActiveStart: 05-19-2022 End: 37-99-0601fxdv 1 tablet by mouth once dailyhydroCHLOROthiazide (HYDRODIURIL) 12.5 mg tablet Take 1 tablet (12.5 mg total) by mouth daily. 11/2310/03/2024 Discontinued (Stop Taking at Discharge)take 1 capsule by mouth once dailyhydrochlorothiazide (MICROZIDE) 12.5 MG capsule Take 12.5 mg by mouth daily. Active End: 07-98-3387jepo 0.5 tablet by mouth once daily in the morning hydrochlorothiazide 25 mg oral tablet 05/13/2016 take 0.5 tablet by oral route once a day (in the morning)HYDROmorphone HCl PF (DILAUDID) injection 0.25 mg (1 source)Start: 68-56-7610QTKKMwhcoyzrl HCl PF (DILAUDID) injection 0.25 mg lactulose 667 mg/ml oral solution (3 sources)Osmotic LaxativeStart: 10-03-2024 End: 25-33-5836ljiu 30 mL by mouth once daily as needed for constipation lactulose (CHRONULAC) 10 gram/15 mL solution Take 30 mL (20 g total) by mouth daily as needed (For constipation) for up to 30 days. 237 mL 10/03/2024 11/02/2024 ActivelevoFLOXacin 500 mg oral tablet (2 sources)Quinolone AntimicrobialStart: 80-44-6962ebkunduhecpyk sodium 0.1 mg oral tablet (20 sources)l-ThyroxineStart: 62-90-3122Mkwuf: 95-09-7113tpvz 1 tablet by mouth once dailylevothyroxine (SYNTHROID) 100 MCG tablet TAKE 1 TABLET BY MOUTH EVERY DAY 90 tablet 3 09/01/2024 ActiveStart: 05-19-2022 End: 15-41-9000633 mcg, oral, Daily, First dose on 10/01/24 [...] APPLY TO NEONATES Monitor thyroid function tests weeklyStart: 65-87-2854yaaf 1 tablet by mouth once dailylevothyroxine 100 mcg (0.1 mg) Tab 100 mcg = 1 tab(s), Oral, Daily, # 30 tab(s), Refills(s) 0 StartDate: 05/19/22 Status: Ordered Start: 05-27-2018 End: 36-02-2515dtsj 1 tablet by mouth in the morninglevothyroxine (Synthroid, Levoxyl) 100 MCG tablet Take 100 mcg by mouth in the morning. 05/19/2022 Active lisinopril 40 mg oral tablet (20 sources)Angiotensin Converting Enzyme InhibitorStart: 70-99-3871aqkj 1 tablet by mouth once dailylisinopril 40 mg Tab 40 mg = 1 tab(s), Oral, Daily, # 30 tab(s), Refills(s) 0 Start Date: 05/19/22 Status: OrderedStart: 10-03-2021 take 1 tablet by mouth once dailylisinopril (PRINIVIL;ZESTRIL) 40 MG tablet Take 1 tablet by mouth daily 90 tablet 1 10/03/2021 ActiveStart: 05-30-2018 End: 60-82-5002wriw 1 tablet by mouth once dailylisinopril (PRINIVIL;ZESTRIL) 20 MG tablet Take 1 tablet by mouth daily 90 tablet 3 07/25/2021 Activemeloxicam 15 mg oral tablet (20 sources)Nonsteroidal Anti-inflammatory DrugStart: 00-46-5953Quygi: 72-41-9796fjny 1 tablet by mouth once dailymeloxicam (MOBIC) 15 MG tablet TAKE 1 TABLET BY MOUTH EVERY DAY 30 tablet 1 02/19/2025 ActiveStart: 87-94-7746orpq 1 tablet by mouth once dailymeloxicam (MOBIC) 15 MG tablet Take 1 tablet by mouth daily 30 tablet 1 12/19/2024 ActiveStart: 05-19-2022 End: 32-37-0029xkci 1 tablet by mouth in the morningMOBIC 15 mg tablet Take 1 tablet (15 mg total) by mouth in the morning. 04/17/2024 10/03/2024 Discontinued (Stop Taking at Discharge)take 0.5 tablet by mouth once dailymeloxicam (Mobic) 15 MG tablet Take 0.5 tablets by mouth daily. ActivemetFORMIN hydrochloride 500 mg oral tablet (20 sources)BiguanideStart: 64-28-1532Cfzji: 15-94-8798ppeh 1 tablet by mouth twice dailymetFORMIN (GLUCOPHAGE) 500 MG tablet Indications: Type 2 diabetes mellitus without complication, without long-term current use of insulin (HCC) Take 1 tablet by mouth 2 times daily 180 tablet 3 10/18/2024 ActiveStart: 28-30-7672sccw 1 tablet by mouth once dailymetFORMIN (GLUCOPHAGE) 500 MG tablet Indications: Type 2 diabetes mellitus without complication, without long-term current use of insulin (HCC) Take 1 tablet by mouth daily 180 tablet 3 09/17/2021 ActiveStart: 92-54-2694jumv 1 tablet by mouth three times daily at dinnermetformin 500 mg oral tablet 01/09/2020 take 1 tablet (500 mg) by oral route 3 times per day with morning and evening mealsStart: 33-47-6068hrmq 1 tablet by mouth three times daily at mealtimemetFORMIN (GLUCOPHAGE) 500 MG tablet Take 1 tablet by mouth 3 times daily (with meals) 180 tablet ActiveStart: 05-27-2018 End: 50-18-1097xorh 1 tablet by mouth in the morningmetFORMIN (Glucophage) 500 MG tablet Take 500 mg by mouth in the morning and 500 mg in the evening.Take with meals. 05/19/2022 ActiveMultivitamin preparation (5 sources)Start: 71-12-3800lermkkvooipq Daily, Refill(s) 0 Start Date: 05/19/22 Status: OrderedNasacort Allergy 24HR (5 sources)Start: 52-12-5608Sphivhqy Allergy 24HR Daily, Refill(s) 0 Start Date: 05/19/22 Status: OrderedNONFORMULARY (15 sources)take 1 tablet by mouth once dailyNONFORMULARY Take 1 tablet by mouth daily RESTORE OCULAR Activetake 1 tablet by mouth once dailyNONFORMULARY Take 1 tablet by mouth daily RESTORE OCULAR & CO-Q10 0 Activetake 1 tablet by mouth twice dailyNONFORMULARY Take 1 tablet by mouth 2 times daily RESTORE OCULAR & CO-Q10 0 Activenorepinephrine (LEVOPHED) 16 mg in sodium chloride 0.9 % 250 mL infusion (premix) (1 source)Start: -100 mcg/min (0.9375-93.75 mL/hr, rounded to 0.9- 93.8 mL/hr), IntraVENous, CONTINUOUS, Starting onFri 09/29/24 at 1100, Until Discontinued, Titrate Infusion? Yes, Initial Infusion Dose: 5 mcg/min, Goal of Therapy is: MAP greater than 65 mmHg, Contact Provider if: Patient is receiving the maximum dose and is not achieving the goal of therapy, Vascular access recommendations: - Step 1: Is the concentration GREATER than 16mg/250mL? >Yes - REQUIRES A central line >No - Proceed to step 2 -Step2: Concentrations LESS THAN OR EQUAL TO 16mg/250mL, [...] Titrate infusion? is Yes : If rate LESSthan 10 mcg/min: Titrate by 2 mcg/min no faster than every 5 minutes to goal. If rate GREATER than or equal to 10 mcg/min: Titrate by 5 mcg/min no faster than every 5 minutes to goal. When approaching therapeutic goal or weaning off, smaller titration increments of 1 mcg/min no faster than every 5 m inutes may be used to maintain goal. If patient is not at goal for >15 minutes, titrate infusionby 10 mcg/min every 2 minutes for a max of 10 minutes and contact the provider for further instructions/orders. Restarting the infusion: If the infusion has been stopped for less than or equal to 30 minutes, resume at previous dose. If the infusion has been stopped for greater than 30 minutes, resume at initial starting dose in order.olopatadine 1 mg/ml ophthalmic solution (20 sources)Histamine-1 Receptor Inhibitor End: 84-42-2826dwbg 1 drop(s) into the eye(s) twice daily as neededolopatadine (Pataday) 0.1 % Solution ophthalmic solution 1 drop 2 times daily as needed for Allergies. Activetake 1 drop(s) into the eye(s) once dailyPataday 0.2 % ophthalmic (eye) drops instill 1 drop into both eyes by ophthalmic route once dailyOmega 3-6-9 Fatty Acids (TRIPLE OMEGA COMPLEX PO) (14 sources)Pomfret 3-6-9 Fatty Acids (TRIPLE OMEGA COMPLEX PO) Take by mouth. ActiveOmega 3-6-9 Fatty Acids (TRIPLE OMEGA-3-6-9 ORAL) (20 sources)Pomfret 3-6-9 Fatty Acids (TRIPLE OMEGA-3-6-9 ORAL) Take by mouth. ActiveOmega 3-6-9 Fatty Acids (TRIPLE OMEGA-3-6-9 ORAL) Take by mouth. 0 SuspendedOmega 3-6-9 Fatty Acids (TRIPLE OMEGA-3-6-9 ORAL) Take by mouth. 0 Activeomega-3 acid ethyl esters (retirement) 1000 mg oral capsule (2 sources)take 2 capsules by mouth once dailyomega-3 acid ethyl esters 1 g capsule Take 2 capsules by mouth daily. ActiveOmega-3 Fatty Acids (OMEGA 3 PO) (8 sources)take 1 tablet by mouth once dailyOmega-3 Fatty Acids (OMEGA 3 PO) Take 1 tablet by mouth daily 0 Activeomeprazole 40 mg delayed release oral capsule (11 sources)Proton Pump InhibitorStart: 26-57-9049Amltl: 61-21-3285uzqy 1 capsule by mouth once dailyomeprazole (PRILOSEC) 40 MG delayed release capsule Take 1 capsule by mouth daily 90 capsule 3 10/18/2024 Activetake 1 capsule by mouth before mealtimeomeprazole (PriLOSEC) [address] capsule Take 10 mg by mouth in the morning. Take before meals. Do not crush or chew. Active End: 78-55-6149dkae 1 capsule by mouth once daily before breakfastomeprazole (PriLOSEC) 40 mg capsule Take 1 capsule (40 mg total) by mouth every morning before breakfast. 10/03/2024 Discontinued (Stop Taking at Discharge)pantoprazole 40 mg delayed release oral tablet (4 sources)Proton Pump InhibitorStart: 10-03-2024 End: 72-22-3137honn 1 tablet by mouth at bedtimepantoprazole (PROTONIX) 40 mg EC tablet Take 1 tablet (40 mg total) by mouth in the morning and at bedtime for 30 days. 60 tablet 10/03/2024 11/02/2024 ActiveStart: 09-29-2024 End: 01-97-3928uumz 40 mg intravenously every twelve hours40 mg, intravenous, Every 12 hours, First dose on Wed09/29/24 at 2000, Look-alike/sound-alike medicat ion - verify indication for use., Indication: Upper GI bleedpantoprazole (PROTONIX) 80 mg in sodium chloride 0.9 % 100 mL infusion (1 source)Start: 19-83-8480faoz 8 mg intravenously every hour8 mg/hr (10 mL/hr), IntraVENous, CONTINUOUS, Starting on Wed09/28/24 at 1415, Until Discontinued polyethylene glycol 3350 79237 mg powder for oral solution (5 sources)Osmotic Laxativetake 1 dose by mouth once daily as needed for constipationpolyethylene glycol (GLYCOLAX) 17 g packet Take 1 packet by mouth daily as needed for Constipation ActivePrenatal 28-0.8 MG tablet (14 sources) 28-0.8 MG tablet 1 (one) time each day at the same time. ActivePrenatal Vit-Fe Fumarate-FA ( VITAMIN PO) (17 sources) Vit-Fe Fumarate-FA ( VITAMIN PO) Take by mouth daily Activetake 1 tablet by mouth once dailyPrenatal Vit-Fe Fumarate-FA ( VITAMIN PO) Take 1 tablet by mouth daily. ActivePrenatal Vit-Fe Fumarate-FA ( VITAMIN PO) Take by mouth daily 0 ActivePrenatal Vit-Fe Fumarate-FA ( VITAMIN PO) Take by mouth 0 ActiveProbiotic 10 Ultra Strength (1 source)Start: 51-47-8207Ecqxzgsgf 10 Ultra Strength Refill(s) 0 Start Date: 11/10/22 Status: OrderedProbiotic Product (PROBIOTIC BLEND PO) (14 sources)Probiotic Product (PROBIOTIC BLEND PO) as directed Orally Active Probiotic Product (PROBIOTIC PO) (11 sources)take 1 tablet by mouth once dailyProbiotic Product (PROBIOTIC PO) Take 1 tablet by mouth daily ActiveProbiotic Product (PROBIOTIC PO) Take by mouth daily ActiveProbiotic Product (PROBIOTIC PO) Take by mouth daily 0 Active Probiotic Product (PROBIOTIC PO) Take by mouth 0 Active2 ml prochlorperazine 5 mg/ml injection (2 sources)PhenothiazineStart: 09-20-2024 End: mg, Intravenous, ONCE, 1 dose, On Wed09/20/24 at 1400, For IV route: dilute dose with 10mL normalsaline and give by slow IV push at a rate of 5mg/min. Maximum of 40mg/day.Start: 08-05-2021 End: mg, IntraVENous, ONCE PRN, Nausea, Starting on Wed08/05/21 at 1451, For 1 dose Secondary antiemetic therapy. PACU onlySITagliptin 25 mg oral tablet (3 sources)Dipeptidyl Peptidase 4 InhibitorStart: 10-03-2024 End: 10-17-3248uiam 1 tablet by mouth in the morningSITagliptin phosphate (JANUVIA) 25 mg tablet Take 1 tablet (25 mg total) by mouth in the morning for 30 days. 30 tablet 10/03/2024 11/02/2024 ActiveTriamcinolone (20 sources)Corticosteroidtriamcinolone (Nasacort Allergy 24HR) 55 MCG/ACT nasal inhaler 1 (one) time each day at the same time. Activetake 1 spray(s) nasal route in the morningtriamcinolone (NASACORT) 55 mcg nasal inhaler Administer 1 spray into each nostril in the morning. ActiveTriamcinolone Acetonide (NASACORT NASAL) Use in each nostril. ActiveTriamcinolone Acetonide (NASACORT AQ NA) by Nasal route daily One spray in each nostril once a day ActiveTriamcinolone Acetonide (NASACORT AQ NA) by Nasal route. ActiveNasacort 55 mcg nasal aerosol,spray apply 1 spray by nasal route dailyTriamcinolone Acetonide (NASACORT NASAL) Use in each nostril. 0 SuspendedTriamcinolone Acetonide (NASACORT NASAL) Use in each nostril. 0 ActiveTriamcinolone Acetonide (NASACORT AQ NA) by Nasal route daily One spray in each nostril once a day 0 Active Triamcinolone Acetonide (NASACORT AQ NA) by Nasal route 0 Activeubidecarenone 60 mg oral capsule (8 sources)take 1 tablet by mouth once dailycoenzyme Q10 60 MG CAPS Take 1 tablet by mouth daily Activetake 1 tablet by mouth once in the morning ubidecarenone (coenzyme Q10) 60 mg capsule Take 1 tablet by mouth in the morning. Activeubidecarenone 100 mg / vitamin e 5 unt oral capsule (20 sources)Start: 19-54-5485gkbqjypd Q-10 (Q-SORB) 100 MG capsule Daily, Refills(s) 0 05/19/2022 ActiveCoenzyme Q10 (Co Q 10) 100 MG CAPS Take by mouth. Activeursodiol 500 mg oral tablet (20 sources)Bile AcidStart: 78-17-5089Znvos: 92-81-8855friq 7.5 mg by mouth twice daily at mealtimeursodiol 500 mg Tab 7.5 mg/kg, Oral, BID, with food, # 180 tab(s), Refills(s) 0 Start Date: 05/19/22 Status: OrderedStart: 10-25-2021 End: 14-26-5799wqsm 1 tablet by mouth twice dailyursodiol (ACTIGALL) 500 MG tablet Take 1 tablet by mouth 2 times daily 10/25/2021 ActiveStart: 07-02-2021 take 3 capsules by mouth once dailyursodiol (ACTIGALL) 300 MG capsule Indications: Primary biliary cirrhosis (HCC) Take 3 capsules by mouth daily 270 capsule 3 07/02/2021 ActiveStart: 21-55-1443axem 1 capsule by mouth four times daily, then take 2 capsules by mouth in the morning, then take 2capsules by mouth in the eveningursodiol 300 MG capsule Take 1 capsule by mouth 4 times daily. Takes 2 capsules in the am and 2 capsules in the pm 04/12/2020 Active Start: 44-30-1528Ftmpsbhk 300 mg oral capsule 01/09/2020 Take 4 capsules a day, 2 in the morning and 1 at nightStart: 29-85-1402ueiz 4 capsules by mouth once dailyursodiol (ACTIGALL) 300 MG capsule Take 4 capsules by mouth daily 270 capsule 3 08/29/2019 ActiveStart: 75-38-0401mgug 3 capsules by mouth once daily, then take 2 capsules by mouth in the morning, then take 1 capsule by mouth Actigall 300 mg oral capsule 07/11/2019 Take 3 capsules a day, 2 in the morning and 1 at nightStart: 13-94-6396lyqk 3 capsules by mouth once daily, then take 2 capsules by mouth in the morning, then take 1 capsule by mouthActigall 300 mg oral capsule 07/11/2019 Take 3 capsules a day, 2 in the morning and 1 at night Start: 20-30-9925jkwl 3 capsules by mouth once dailyursodiol (ACTIGALL) 300 MG capsule Take 3 capsules by mouth daily 270 capsule 3 08/02/2018 ActiveStart: 40-67-9873pvnk 4 capsules by mouth once daily, then take 2 capsules by mouth in the morning, then take 2 capsules by mouthActigall 300 mg oral capsule 11/27/2014 Take 4 capsules a day, 2 in the morning and 2 at nighttake 2 tablets by mouth twice dailyursodiol (ACTIGALL) 250 MG TABS tablet Take 500 mg by mouth 2 times daily. Activevalsartan 320 mg oral tablet (20 sources)Angiotensin 2 Receptor BlockerStart: 60-26-2138Tniwo: 39-10-0938aaat 1 tablet by mouth once dailyvalsartan (DIOVAN) 320 MG tablet Take 1 tablet by mouth daily 90 tablet 3 11/22/2024 ActiveStart: 11-10-2022 End: 20-33-4425vhxv 1 tablet by mouth in the morningvalsartan (Diovan) 320 MG tablet Take 320 mg by mouth in the morning. 11/10/2022 Activetake 2 tablets by mouth once dailyValsartan 160 MG tablet Take 2 tablets by mouth daily. Active Vitamin D (8 sources)Start: 54-06-1090Znjxvks D Daily, Refills(s) 0 Start Date: 05/19/22 Status: Orderedtake 1 tablet by mouth twice dailyvitamin D (CHOLECALCIFEROL) 1000 UNIT TABS tablet Take 1,000 Units by mouth 2 times daily 0 Active Completed/Discontinued Medications MedicationDrug Class(es)DatesSig (Normalized)Sig (Original)ALTEplase (CATHFLO) injection 2 mg (1 source)Start: mg, IntraCATHeter, PRN, Starting on Wed09/29/24 at [...] mL of blood to remove alteplase and residualclot then flush with 10 mL normal saline.apixaban 5 mg oral tablet (10 sources)Factor Xa InhibitorStart: 12-13-2023 End: 13-15-8918tbbo 0.5 tablet by mouth in the morningapixaban (Eliquis) 5 MG tablet Indications: Encounter for deep vein thrombosis prophylaxis Take 0.5 tablets (2.5 mg) by mouth in the morning and 0.5 tablets (2.5 mg) before bedtime. Do all this for 14 days. 14 tablet 12/13/2023 06/20/2024 Discontinued (Therapy completed)calcium carbonate 1250 mg / cholecalciferol 0.01 mg oral tablet (12 sources)Vitamin D End: 38-76-2987nojl 1 tablet by mouth four times dailyCalcium 500 + D 500 mg(1,250mg) -400 unit oral tablet 02/01/2018 take 1 tablet by oral route 4 timesa day End: 70-15-8625mmea 1 tablet by mouth four times dailyCalcium 500 + D 500 mg(1,250mg) -400 unit oral tablet 02/01/2018 take 1 tablet by oral route 4 timesa daycalcium citrate 760 mg calcium /3.5 gram oral granules (2 sources)calcium citrate 760 mg calcium /3.5 gram oral granules take 1500 by oral route dailyCalcium Gluconate (1 source)Start: 09-29-2024 End: 67-29-9138jjdwyfq gluconate IVPB 1000 mg/50 mL (20 mg/mL premix)co Q10-red yeast rice 60-600 mg oral capsule (1 source) End: 40-13-7607xiwv 1 capsule by mouth once dailyco Q10-red yeast rice 60-600 mg oral capsule 02/01/2018 take 1 capsule by oral route dailycoenzyme q10 60 mg / red yeast rice 600 mg oral capsule (11 sources) End: 35-36-7305zoqo 1 capsule by mouth once dailyco Q10-red yeast rice 60-600 mg oral capsule 02/01/2018 take 1 capsule by oral route dailycyclobenzaprine hydrochloride 10 mg oral tablet (10 sources)Muscle RelaxantStart: 04-02-2023 End: 63-20-3605hffh 1 tablet by mouth three times daily as neededcyclobenzaprine (FLEXERIL) 10 MG tablet Take 1 Tablet by mouth 3 times daily as needed. 90 Tablet 04/13/2024 DiscontinuedcycloSPORINE 0.5 mg/ml ophthalmic suspension (20 sources)Calcineurin Inhibitor ImmunosuppressantStart: 12-49-6547hhbo 1 drop(s) into the eye(s) twice daily1 drop, Ophthalmic, 2 TIMES DAILY RESP, First dose (after last reorder) on [facility] 09/28/24 at 2200, Until Discontinued, Please select a reason the therapeutic interchange was not accepted: Okay for Pharmacy to SubstituteStart: 69-87-4103yxmcfHUOVBNQ (Restasis) 0.05 % ophthalmic emulsion 1 drop. 11/10/2022 ActiveStart: 72-44-4089grdk 1 drop(s) into the eye(s) twice dailyRestasis ophthalmic 1 drop(s), BID, Refill(s) 0 Start Date: 11/10/22 Status: OrderedStart: 06-84-7336mgyq 1 drop(s) into the eye(s) every twelve hours Restasis 0.05 % ophthalmic (eye) dropperette 02/01/2018 instill 1 drop into both eyes by ophthalmic route every 12 hourstake 1 drop(s) into the eye(s) twice dailycyclosporin 0.05 % Emulsion ophthalmic suspension 1 drop 2 times daily. ActivecycloSPORINE (RESTASIS OP) by Ophthalmic route 2 times a day. Activetake 1 drop(s) into the eye(s) in the morningCycloSPORINE (RESTASIS OP) Apply 1 drop to eye in the morning and 1 drop in the evening. Both Eyes.ActivecycloSPORINE (RESTASIS OP) by Ophthalmic route 2 times a day. 0 SuspendedcycloSPORINE (RESTASIS OP) by Ophthalmic route 2 times a day. 0 ActivecycloSPORINE (RESTASIS OP) by Ophthalmic route. 0 Activetake 1 drop(s) into the eye(s) twice daily CycloSPORINE (RESTASIS OP) Apply 1 drop to eye 2 times daily 0 Activedocusate sodium 100 mg oral capsule (5 sources)Start: 04-02-2023 End: 10-83-8046vkpx 1 capsule by mouth twice dailydocusate sodium (COLACE) 100 MG capsule Take 1 Capsule by mouth 2 times daily. 60 Capsule 0 04/02/2023 06/17/2023 DiscontinuedEsomeprazole (12 sources)Proton Pump Inhibitor End: 52-49-7491auejpi 22.3 mg 11/27/2014 one tablet in the morningesomeprazole 20 mg / naproxen 500 mg delayed release oral tablet (12 sources)Proton Pump Inhibitor, Nonsteroidal Anti-inflammatory Drug End: 39-86-2299fvic 1 tablet by mouth twice daily 30 minutes before mealtime Vimovo 500-20 mg oral tablet,IR,delayed rel,biphasic 05/29/2014 take 1 tablet by oral route 2 times per day 30 minutes before mealsestrogens, conjugated (retirement) 0.625 mg/ml vaginal cream (12 sources)Estrogen End: 31-11-6732pbwux 0.5 g topically three times weeklyPremarin 0.625 mg/gram vaginal cream 05/13/2016 apply 0.5 gram by topical route three times a wk2 ml famotidine 10 mg/ml injection (1 source)Histamine-2 Receptor AntagonistStart: 08-05-2021 End: 74-30-9329ziyjwusrbp (PEPCID) injection 20 mg2 ml fentaNYL 0.05 mg/ml injection (3 sources)Opioid AgonistStart: 09-28-2024 End: 39-40-8751wqkl 25 ug by mouth every two hours as needed for pain25 mcg, IntraVENous, EVERY 2 HOURS PRN, Starting on Renee 09/28/24 at 1357, Until Wed09/29/24 at 0603, Pain Severe (7-10), If oral and IV narcotics ordered, use oral first and only use IV if oral is ineffective or cannot take oral. Do Not give oral and IV within 1 hour of each other unless specifically ordered.Start: 20-35-295725 mcg, IntraVENous, EVERY 5 MIN PRN, Pain Severe (7-10), Starting on Wed08/05/21 at 1451, For 4 doses Phase I - Initial therapy for severe pain. PACU onlyStart: 13-50-318006 mcg, IntraVENous, EVERY 5 MIN PRN, Pain Moderate (4-6), Starting on Wed08/05/21 at 1451, For 4 doses Phase I - Initial therapy for moderate pain. PACU onlyfentaNYL (SUBLIMAZE) injection 50 mcg (1 source)Start: 09-29-2024 End: 23-99-4628ffwe 50 ug intravenously every two hours as neededfentaNYL (SUBLIMAZE) injection 50 mcgfluticasone furoate 0.0275 mg/actuat metered dose nasal spray (12 sources)Corticosteroid End: 14-73-8511vxvf 2 spray(s) nasal route once dailyVeramyst 27.5 mcg/actuation nasal spray,suspension 12/12/2012 spray 2 sprays (55 mcg) in each nostril by intranasal route once dailyglucagon (rdna) 1 mg injection (1 source)Antihypoglycemic AgentStart: 09-29-2024 End: mg, intramuscular, As needed, low blood sugar, blood glucose less than 70 mg/dL and unconscious or NPO without IV access., Starting on Wed09/29/24 at 1955, If conscious and not NPO, immediately follow with meal tray or high protein (7Grams) snack if tray not available. If NPO, initiate IV 5% Dextro se/Water at 100 mL/hr and contact prescriber for additional orders. If blood glucose is not greaterthan 70 mg/dL after initial treatment, repeat treatment. vmjqfplyhz-eezls-nha-tia-115HC Oral (12 sources) End: 60-27-4669rultehtaty-scdtz-qgv-jqu-115HC Oral 06/12/201350 ml glucose 500 mg/ml prefilled syringe (2 sources)Start: 09-29-2024 End: g, oral, As needed, low blood sugar, blood glucose less than 70 mg/dL, Starting on Wed09/29/24 [id number], If patient conscious and taking PO. If blood glucose is not greater than 70 mg/dL after initial treatment, repeat treatment.Start: 09-29-2024 End: mL, intravenous, As needed, low blood sugar, blood glucose less than 70 mg/dL and unconscious orNPO with IV access, Starting on Wed09/29/24 at [...] mg/dL after initial treatment, repeat treatment. VESICANT (RED)Warning: HYPERTONIC solution.1 ml hydrALAZINE hydrochloride 20 mg/ml injection (1 source)Arteriolar VasodilatorStart: 10-01-2024 End: 10-44-2746vszo 10 mg intravenously every six hours as nggxyi16 mg, intravenous, Every 6 hours PRN, high blood pressure, Starting on Wed10/01/24 at 0940, For systolic blood pressure greater than 160 mmHg Look-alike/sound-alike medication - verify indication for use. Administer IV doses as a slow IV push; maximum rate: 5 mg/minute.hydroCHLOROthiazide 25 mg / losartan potassium 100 mg oral tablet (12 sources)Thiazide Diuretic, Angiotensin 2 Receptor Walker End: 61-14-4574mhzg 1 tablet by mouth once dailylosartan-hydrochlorothiazide 100-25 mg oral tablet 11/27/2014 take 1 tablet by oral route once daily hypromellose 5 mg/ml ophthalmic solution (1 source)Start: 10-02-2024 End: 39-41-6941jeomazmyp 200 mg oral tablet (1 source)Nonsteroidal Anti-inflammatory Drug End: 27-67-9266iglp 1 tablet by mouth every six hours as neededIbuprofen 200 MG tablet Take 1 tablet by mouth every 6 hours as needed for Mild Pain. 11/29/2023 Discontinued (Therapy completed)3 ml insulin lispro 100 unt/ml pen injector (2 sources)Insulin AnalogStart: 10-02-2024 End: 94-18-7376cfsyvi 400 mg by subcutaneous injection once daily, then inject 2 [IU] by subcutaneous injection 15minutes after mealtime1-4 Units, subcutaneous, Nightly, First dose on Wed10/02/24 at 2200, Bedtime hyperglycemia dosing. For blood glucose 201-250 mg/dL, give 1 unit. For blood glucose 251-300 mg/dL, give 2 units. For blood glucose 301-350 mg/dL, give 3 units. For blood glucose 351- 400 mg/dL, give 4 units. Give even if NPO or meals skipped. Do NOT give more often than every 4 hours when NPO. Notify prescriber if bloodglucose greater than 400 mg/dL. Look-alike/sound-alike medication - verify indication for use. Prime with 2 units of insulin prior to administration. Prandial/supplemental Insulin. Pre-filled pens stable 28 days at room temperature. Insulin lispro should be administered within 15 minutes before or immediately after a meal. Start: 10-02-2024 End: 88-71-0009zetset 400 mg by subcutaneous injection three times daily at mealtime, then inject 2 [IU] by subcutaneous injection 15 minutes after mealtime 1-5 Units, subcutaneous, 3 times daily with meals, First dose on Wed10/02/24 at 1730, Daytime hyperglycemia dosing. For blood glucose 151-200 mg/dL, give 1 unit. For blood glucose 201-250 mg/dL, give2 units. For blood glucose 251-300 mg/dL, give [...] 15 minutes before or immediately after a meal.iopamidol (ISOVUE-370) 76 % injection 100 mL (1 source)Start: 09-28-2024 End: 08-21-2288gxyg 1 dose intravenously ezfs482 mL, IntraVENous, IMG ONCE PRN, 1 dose, Starting on Renee 09/28/24 at 1458, Until Renee 09/28/24 at 1504, Otheriopamidol (ISOVUE-370) 76 % injection 120 mL (1 source)Start: 02-14-2025 End: 99-83-6024bluz 1 dose intravenously peen054 mL, IntraVENous, IMG ONCE PRN, 1 dose, Starting on Wed02/14/25 at 1747, Until Wed02/14/25 at 1747, OtherIron (10 sources) End: 75-59-1138xckw 1 capsule by mouth once dailyiron 325 mg (65 mg iron) oral capsule, extended release 07/28/2017 take 1 capsule by oral route dailykrill oil 500 mg oral capsule (12 sources) End: 42-07-1274svui 1 capsule by mouth twice dailykrill oil 500 mg oral capsule 07/28/2017 take 1 capsule by oral route 2 times a dayloratadine 10 mg oral tablet (1 source)Start: 10-02-2024 End: 06-02-3632qcdw 10 mg by mouth once daily10 mg, oral, Daily, First dose on Wed10/02/24 at 1715, Look-alike/sound-alike medication - verify indication for use.Suprep Bowel Prep Kit 17.5-3.13-1.6 gram oral recon soln (20 sources)Start: 11-12-2016 End: 30-33-1682Zqwwma Bowel Prep Kit 17.5-3.13-1.6 gram oral recon soln 11/12/2016 07/28/2017 take as directedStart: 46-52-9557Pnndvh Bowel Prep Kit 17.5-3.13-1.6 gram oral recon soln 09/19/2015 take as directedmagnesium sulfate IVPB 2000 mg/50 mL in iso-osmotic water (40 mg/mL premix) (1 source)Start: 09-29-2024 End: 33-09-4626kymguwber sulfate IVPB 2000 mg/50 mL in iso-osmotic water (40 mg/mL premix)melatonin 10 mg oral tablet (20 sources) End: 30-21-4606ptfy 1 tablet by mouth at bedtimeMelatonin 10 MG tablet Take 10 mg by mouth at bedtime. 11/29/2023 Discontinued (Therapy completed)take 1 capsule by mouth once dailyMelatonin 10 MG CAPS Take 10 mg by mouth nightly 0 Activemometasone furoate 0.05 mg/actuat metered dose nasal spray (12 sources)Corticosteroid End: 53-10-0531qqyx 2 spray(s) nasal route once dailyNasonex 50 mcg/actuation nasal spray,non-aerosol 11/27/2014 spray 2 sprays in each nostril by intranasal route once dailymultivitamin Oral tablet (12 sources) End: 52-81-2150xxvw 1 tablet by mouth once dailymultivitamin Oral tablet 05/13/2016 take 1 tablet by oral route dailynaloxone hydrochloride 40 mg/ml nasal spray (5 sources)Opioid AntagonistStart: 04-02-2023 End: 88-88-4095edeqlmzz 4 mg/0.1 mL nasal liquid Use 1 spray in one nostril (alternate sides) as needed for Drug Overdose for up to 1 dose. Use every 2-3 minutes until help arrives. 1 Each 1 04/02/2023 06/17/2023 Discontinuednaproxen sodium 220 mg oral capsule (12 sources)Nonsteroidal Anti-inflammatory Drug End: 55-26-1124lnio 1 capsule by mouth once dailynaproxen sodium 220 mg oral capsule 11/27/2014 take 1 capsule by oral route dailyobeticholic acid 10 mg oral tablet (17 sources)Farnesoid X Receptor AgonistStart: 05-16-2020 End: 57-42-2444khhz 1 tablet by mouth once dailyOcaliva 10 MG tablet Take 10 mg by mouth daily. 05/16/2020 11/29/2023 Discontinued (Therapy completed)Start: 19-38-2237yvwb 2 tablets by mouth once dailyOcaliva 5 mg oral tablet 01/09/2020 TAKE 2 TABLET DAILY.Start: 50-51-2783Mmiadpsuzwn Acid (OCALIVA) 5 MG TABS 5 mg daily 30 tablet 0 08/29/2019 ActiveStart: 66-12-0839udpp 1 tablet by mouth once dailyOcaliva 5 mg oral tablet 01/24/2019 TAKE 1 TABLET DAILY.Pomfret-3 350 mg-235 mg- 90 mg-597 mg oral capsule,delayed release(DR/EC) (12 sources)take 1 capsule by mouth once dailyOmega-3 350 mg-235 mg- 90 mg-597 mg oral capsule,delayed release(DR/EC) take 1 capsule by oral route daily2 ml ondansetron 2 mg/ml injection (3 sources)Serotonin-3 Receptor AntagonistStart: mg, IntraVENous, EVERY 6 HOURS PRN, Starting on Wed09/28/24 at 1400, Until Discontinued, Nausea, VomitingStart: 09-20-2024 End: mg, Intravenous, ONCE NEEDED, 1 dose, Starting on Wed09/20/24 at 1053, Until Wed09/20/24 at 1225, Nausea, Intra-op/Intra-ProcStart: 08-05-2021 End: mg, IntraVENous, ONCE PRN, Nausea, Starting on Wed08/05/21 at 1451, For 1 dose Initial antiemetictherapy. PACU only24 hr oxybutynin chloride 15 mg extended release oral tablet (20 sources)Cholinergic Muscarinic AntagonistStart: 08-13-2015 End: 73-58-5131ssfi 1 tablet by mouth once dailyoxybutynin chloride 15 mg oral tablet extended release 24hr 08/13/2015 05/13/2016 take 1 tablet (15 mg) by oral route once daily End: 82-13-6892ayjk 1 tablet by mouth twice dailyoxybutynin chloride 5 mg oral tablet 11/27/2014 take 1 tablet (5 mg) by oral route 2 times per dayoxyCODONE hydrochloride 5 mg oral tablet (1 source)Opioid AgonistStart: 09-20-2024 End: 18-20-0621jjsr 1 dose by mouth once2.5 mg, Oral, ONCE, 1 dose, On Wed09/20/24 at 1430polyvinyl alcohol 0.005 ml/ml / povidone 6 mg/ml ophthalmic solution (1 source)Start: 09-28-2024 End: drop, Both Eyes, 2 TIMES DAILY, First dose on Wed09/28/24 at 2100, Until Discontinued, Substitutedfor cycloSPORINE (RESTASIS).Potassium Chloride (2 sources)Start: 09-29-2024 End: 79-51-0781uqhanusxs chloride (K-TAB,KLOR-CON) CR tablet 20-40 mEqStart: 91-98-4527ewye 1 tablet by mouth once daily as neededpotassium chloride (KLOR- CON M) 20 MEQ extended release tablet Take 1 tablet by mouth daily as needed (/ Take with lasix water pill) 30 tablet 5 03/27/2024 Activepotassium chloride IVPB 10 mEq/50 mL in water (0.2 mEq/mL premix) (1 source)Start: 09-29-2024 End: 13-68-7040rahirzjys chloride IVPB 10 mEq/50 mL in water (0.2 mEq/mL premix) oral (12 sources) oral take once dailyProbiotic oral (12 sources)Probiotic oral once dailyRestasis 0.05 % ophthalmic (eye) dropperette (1 source)Start: 71-91-7164upvr 1 drop(s) into the eye(s) every twelve hours Restasis 0.05 % ophthalmic (eye) dropperette 02/01/2018 instill 1 drop into both eyes by ophthalmic route every 12 hoursRestore ete vitamin (10 sources)Restore ete vitamin 2 tablets daily- eye Sodium Chloride (20 sources)Start: 09-30-2024 End: 87-87-9203same 10 mL intravenously every eight hourssodium chloride 0.9 % flush 10 mLStart: -40 mL, IntraVENous, EVERY 12 HOURS SCHEDULED (2 times per day), First dose on Wed09/29/24 at 2100,Until Discontinued, For Line Patency: Peripheral IV = 5 mL; Midline or Central Line = 10 mL/lumen. If following IV push medication, administer flush at same rate as the IV push. Flush volume is determined by type of infusion therapy being given. For non- viscous solutions use: Peripheral IV = 5 mL Midline or Central Line = 10 mL/lumen For viscous solutions (i.e. blood components, parenteral nutrition, contrast media, or after obtaining blood sample) use: Peripheral IV = 10 mL Midline or Central Line = 20 mL/lumenStart: 09-29-2024 End: 63-92-3381fpmm 75 mL intravenously every hour75 mL/hr, intravenous, Continuous, Starting on Wed09/29/24 at 2015, For 1 dayStart: -40 mL, IntraVENous, EVERY 12 HOURS SCHEDULED (2 times per day), First dose on Wed09/29/24 at 1100,Until Discontinued, For Line Patency: Peripheral IV = [...] mL Midline or Central Line = 20 mL/lumenStart: -40 mL, IntraVENous, PRN, Starting on Wed09/29/24 at 1324, Until Discontinued, Line Care, After every IV line use, For Line Patency: Peripheral IV = 5 mL; Midline or Central Line = 10 mL/lumen. If following IV push medication, administer flush at same rate as the IV push. Flush volume is determinedby type of infusion therapy being given. For non-viscous solutions use: Peripheral IV = 5 mL Midline or Central Line = 10 mL/lumen For viscous solutions (i.e. blood components, parenteral nutrition, contrast media, or after obtaining blood sample) use: Peripheral IV = 10 mL Midline or Central Line = 20 mL/lumenStart: 09-28-2024 End: 90-23-1127BdzwsGGApuj, at 5-250 mL/hr, PRN, if patient receiving piggyback infusions and maintenance fluids are not ordered, Starting on Wed09/29/24 at 1324, For piggyback infusion, administer at same rate as piggyback for a total of 25 mL. Enter 25 mL into dose field and piggyback rate into rate field of orde r. If piggyback is infusing at a rate less than 100 mL/hr, enter 25 mL into dose field and 100 mL/hr into rate field of order.Start: 79-84-7221Gzneb: 09-28-2024 End: 33-66-4458jxuk 1 mL intravenously every hourIntraVENous, at 125 mL/hr, CONTINUOUS, Starting on Wed09/28/24 at 1415, For 48 hours, Maintenance IVfluid order, if a bolus IV fluid order is present, begin this order after the bolus is complete.Start: 55-10-7263tnnidr chloride flush 0.9 % injection 5-40 mLStart: .9 % sodium chloride infusionStart: 96-83-2594wqnmdy chloride flush 0.9 % injection 5-40 mLSolifenacin (12 sources)Cholinergic Muscarinic Antagonist End: 70-89-6533xgrtjdwspyg Oral 06/12/2013Suprep Bowel Prep Kit 17.5-3.13-1.6 gram oral recon soln (4 sources)Start: 11-12-2016 End: 60-53-1849Bcxnrd Bowel Prep Kit 17.5-3.13-1.6 gram oral recon soln 11/12/2016 07/28/2017 take as directedStart: 65-34-8180Mcvwys Bowel Prep Kit 17.5-3.13-1.6 gram oral recon soln 09/19/2015 take as directedtechnetium mebrofenin (CHOLETEC) injection 5 millicurie (1 source)Start: 09-29-2024 End: millicurie, IntraVENous, IMG ONCE PRN, 1 dose, Starting on Wed09/29/24 at 1254, Until Wed09/29/24 at 1333, OthertiZANidine 4 mg oral capsule (11 sources)Central alpha-2 Adrenergic Agonist End: 51-20-0296rble 1 capsule by mouth in the morning, then take 1 capsule by mouth in the evening, then take 1 capsule by mouth at bedtimetiZANidine (Zanaflex) 4 MG capsule Take 4 mg by mouth in the morning and 4 mg in the evening and 4 mg before bedtime. 06/20/2024 Discontinued (Therapy completed) traMADol hydrochloride 50 mg oral tablet (12 sources)Opioid Agonist End: 03-46-1925jvzq 1 tablet by mouth every four to six hours as neededtramadol 50 mg oral tablet 05/29/2014 take 1 tablet (50 mg) by oral route every 4-6 hours as neededtraZODone hydrochloride 50 mg oral tablet (20 sources)Serotonin Reuptake InhibitorStart: 11-10-2022 End: 76-91-8370uqsIHOrqa (Desyrel) 50 MG tablet Take 50 mg by mouth as needed at bedtime. 11/10/2022 06/20/2024 Discontinued (Therapy completed)take 0.5 tablet by mouth at bedtimetraZODone 50 MG tablet Take 0.5 tablets by mouth At bedtime. Activeubiquinol 100 mg oral capsule (12 sources)Start: 51-71-8653okax 2 capsules by mouth once nmpdxguZ65 (ubiquinol) 100 mg oral capsule 07/11/2019 take 2 capsules by oral route daily take 1 capsule by mouth once uzpuvxnK25 (ubiquinol) 100 mg oral capsule take 1 capsule by oral route daily Problems Active Problems Problem ClassificationProblemDateDocumented DateEpisodic/ChronicAbdominal pain (11 sources)Acute abdominal pain; Translations: [Unspecified abdominal pain] Onset: 229098-20-6771XwovfzibKelqs posthemorrhagic anemia (3 sources)Acute posthemorrhagic anemia; Translations: [Acute posthemorrhagic anemia]Onset: 996828-18-8165HjpguzlvKombsugrsq and other anemia (2 sources)Iron deficiency anemia; Translations: [Iron deficiency anemia, unspecified]15-06-1841TnajpzzqNnqubwtbpj and other anemia (1 source)Iron deficiency anemia, unspecified; Translations: [Iron deficiency anemia, unspecified]Onset: 86-21-3419YhlvcxzuNevnfgph mellitus without complication (20 sources)Type 2 diabetes mellitus; Translations: [Type 2 diabetes mellitus without complication]Onset: 05-19-2016 Resolved: 403069-69-0816FsqdepbZyhervznj of lipid metabolism (20 sources)Other and unspecified hyperlipidemia; Translations: [Mixed hyperlipidemia]Onset: 05-19-2016 Resolved: 683717-33-8997QfsctohVjxjwhvzo hypertension (20 sources)Essential hypertension; Translations: [Hypertensive disorder]Onset: 05-08-2015 Resolved: 085340-40-9080ThrmmydFhgbiqbibkuex symptoms and ill-defined conditions (20 sources)Mixed urinary incontinence; Translations: [Incontinence]Onset: 008592-17-6058NiqmlrkXuvxrzgmyc disorders (4 sources)Unspecified menopausal and postmenopausal disorder; Translations: [Menopausal and female climacteric states]Onset: 12-15-8282UubeiccQpwnanhphsh chest pain (3 sources)Rib pain; Translations: [Other chest pain]Onset: EpisodicOsteoarthritis (1 source)Unilateral primary osteoarthritis, left knee; Translations: [UNI PRIM OSTEOARTHRITIS LT KNEE]Onset: 78-13-8310CopespjVohou connective tissue disease (1 source)Presence of left artificial knee joint; Translations: [PRESENCE LEFT ARTIFICIAL KNEE JOINT]Onset: 91-35-9575FevttfzKxymh connective tissue disease (6 sources)History of repair of hip joint; Translations: [Presence of left artificial hip joint]71-77-9026PtypqbzLfaby diseases of bladder and urethra (2 sources)Bladder muscle dysfunction - overactive; Translations: [OAB (overactive bladder)]Onset: 998430-76-3580PqpszfxAtido diseases of bladder and urethra (20 sources)Overactive bladder; Translations: [Overactive bladder]Onset: 661605-24-8442TfgtnshWgiyo gastrointestinal disorders (1 source)Splenomegaly; Translations: [Splenomegaly, not elsewhere classified] 71-29-8002PvfbtwwkQwppe liver diseases (20 sources)Biliary cirrhosisOnset: 85-94-5419DmuxvcgNnjaj liver diseases (20 sources)Primary biliary cholangitis; Translations: [Primary biliary cirrhosis]Onset: 774040-92-3196CzbqljgSoskg liver diseases (20 sources)Primary biliary cirrhosis; Translations: [PRIMARY BILIARY CIRRHOSIS] Onset: 92-30-5800NyxqulqMsbdt liver diseases (1 source)Hepatic fibrosis; Translations: [Liver fibrosis]04-36-4702TctfereFlric lower respiratory disease (2 sources)Snoring; Translations: [Snoring]65-20-0708KkmopqrwScqsu lower respiratory disease (1 source)Snoring; Translations: [Snoring]Onset: 76-17-8940MilkmpvmAkzgg nervous system disorders (1 source)Other chronic pain; Translations: [OTHER CHRONIC PAIN]Onset: 84-75-8706EmehberQkuvj nervous system disorders (3 sources)Spinal cord disease; Translations: [Disease of spinal cord, unspecified]33-91-3601HyrwjhqIgejh nervous system disorders (2 sources)Disorder of nervous system; Translations: [Other specified disorders of central nervous system]28-59-9991KyiaeihyBifhb non-traumatic joint disorders (6 sources)Pain in left knee; Translations: [Pain in joint, lower leg]Onset: 03-71-1851PryvhdsnPuojn non-traumatic joint disorders (6 sources)Hip pain; Translations: [Pain in left hip]10-92-9383QynewutlZskfk non-traumatic joint disorders (2 sources)Pain in right knee; Translations: [Pain in joint, lower leg] 16-29-7999KyphjuinClxlq nutritional; endocrine; and metabolic disorders (2 sources)Body mass index 30+ - obesity; Translations: [Body mass index (BMI) 30.0-30.9, adult]97-56-7229RavxvqvMjenb nutritional; endocrine; and metabolic disorders (2 sources)Obese class I; Translations: [Obesity, unspecified]Onset: 05-22-2020 25-06-5297HqwszfvKepieccm codes; unclassified (2 sources)Sleep apnea; Translations: [Sleep apnea, unspecified]02-13-2025 ChronicResidual codes; unclassified (3 sources)Sleep apnea, unspecified; Translations: [Sleep apnea, unspecified] Onset: 20-71-1097RjdvhrrLtvowvev codes; unclassified (2 sources)History of surgical procedure on cervical spine; Translations: [Other specified postprocedural states]19-71-3940LxoxlvleXvizmjgq codes; unclassified (1 source)Pain, unspecified; Translations: [Pain, unspecified]Onset: 09-30-2024 EpisodicSpondylosis; intervertebral disc disorders; other back problems (20 sources)Other spondylosis with radiculopathy, lumbar region; Translations: [Sacroiliitis, not elsewhere classified]Onset: 50-14-5619TvuhquqZdhzwqpaaty; intervertebral disc disorders; other back problems (16 sources)Spinal stenosis of lumbar region; Translations: [Spinal stenosis, lumbar region without neurogenic claudication]Onset: 75-01-1706Wkmqkwvg Superficial injury; contusion (4 sources)Contusion of left chest wall; Translations: [Contusion of left front wall of thorax, initial encounter]69-23-9120QajporghIyzenma disorders (20 sources)Thyrotoxicosis without mention of goiter or other cause, and without mention of thyrotoxic crisis or storm; Translations: [Hypothyroidism]Onset: 812877-11-9387OgxvclvIwifnfcdsxgc (4 sources)LOW BACK PAIN, UNSPECIFIED; Translations: [LOW BACK PAIN, UNSPECIFIED]Onset: 31-46-2838Uvcvrdujquzt (1 source)Hepatic fibrosis, unspecified; Translations: [Hepatic fibrosis, unspecified]Onset: 09-20-2024 Past or Other Problems Problem ClassificationProblemDateDocumented DateEpisodic/ChronicCalculus of urinary tract (1 source)Kidney stone; Translations: [Renal stones]EpisodicGastrointestinal hemorrhage (16 sources)Gastrointestinal hemorrhage; Translations: [Hemorrhage of anus and rectum]Onset: 853951-90-5345GrfwwjmeZulvpbmzjrzpx symptoms and ill-defined conditions (8 sources)Urgent desire to urinate; Translations: [Increased frequency of urination]Onset: 13-52-2239NooxvgmzXhqm disorders (2 sources)Mood disordersOnset: 881603-04-9317Zgqhp connective tissue disease (4 sources)Other muscle spasm; Translations: [OTHER MUSCLE SPASM]Onset: 24-09-4315WfsqzaetDdoed connective tissue disease (4 sources)Pain in right foot; Translations: [PAIN IN RIGHT FOOT]Onset: 87-47-1985VepwswrnYbldx connective tissue disease (1 source)Pain in left foot; Translations: [PAIN IN LEFT FOOT]Onset: 03-27-2022 EpisodicOther diseases of kidney and ureters (18 sources)Unspecified disorder of kidney and ureterOnset: 95-50-3236Cpktjawq Other diseases of kidney and ureters (6 sources)Disorder of kidney and ureter, unspecifiedOnset: 95-37-3230Gceurumv Other gastrointestinal disorders (1 source)Diarrhea, unspecified; Translations: [DIARRHEA UNSPECIFIED]Onset: 98-20-7550NzuimrjtVbrim gastrointestinal disorders (2 sources)Splenomegaly, not elsewhere classified; Translations: [Splenomegaly, not elsewhere classified]Onset: 87-17-4783SokejqzpXziui screening for suspected conditions (not mental disorders or infectious disease) (10 sources)Encounter for screening mammogram for malignant neoplasm of breast; Translations: [Electrocardiogram abnormal]Onset: 71-38-3978LoorslpwFtlfmhhe codes; unclassified (1 source)Family history of malignant neoplasm of other organs or systems; Translations: [FAM HX MALIG NEOPLASM OTH ORGN/SYS]Onset: 83-90-5949Pglsapsm Residual codes; unclassified (13 sources)History of major orthopedic surgery; Translations: [Other specified postprocedural states]Onset: 069951-73-9236UlgudsygPnyjl (7 sources)Hypovolemic shock; Translations: [Hypovolemic shock]Onset: 09-29-2024 Resolved: 002440-91-7942UfuzvmpeVbyduwlnzfxs (1 source)LOW BACK PAIN, UNSPECIFIED; Translations: [LOW BACK PAIN, UNSPECIFIED] Onset: 11-50-3299Lxvagxfhiqca (14 sources)Onset: 11-18-2021 Resolved: 081612-03-1347Hvspjijhlreo (1 source)Hepatic fibrosis, unspecified; Translations: [Hepatic fibrosis, unspecified]Onset: 09-20-2024 Results Test NameValueInterpretationReference RangeFacilityProgress Noteson 04-03-2025 Resident Services Director Authentication Interface Message Komal Vergara recommended pt to take muscle relaxant at night. Unable to take flexeril, causes hallucinations. Tizanidine order pended to Dr Vergara.NormalThe [facility] SystemX-ray report Ordered By: Cooper Schneider on 18-10-3097Mzofl reportCHILLICOTHE [place] [address] XRay Report Signed Patient: Ashlee Banerjee MR#: [id number] : 1950 Acct:[id number] Age/Sex: 74 / F ADM Date: 5 Loc: XDUCLY Room: Type: [facility] Attending Dr: Tammy Mckeon APRN Copies to: [...] acute displaced rib fracture. Impression dictated by: Cooper Schneider M.D. 04/01/2025 2:39 PM Dictation Location: [employer]17 Transcribed By: ALDO 04/01/25 143 Dictated By: Cooper Schneider II, MD 04/01/25 143 Signed By: 04/01/25 143 [facility] Work Phone: XR ribs LT min 3V w CXR1V*on 40-34-6659KZ ribs LT min 3V w CXR1V*[facility] [address] XRay Report Signed Patient: Ashlee Banerjee MR#: [id number] : 1950 Acct:[id number] Age/Sex: 74 / F ADM Date: 04/01/25 Loc: XDUCLY Room: Type: [facility] Attending Dr: Tammy Mckeon [employer] HEL[employer] Copies to: Tammy Mckeon APRN Ordering Provider: Tammy Mckeon APRN Date of [...] acute displaced rib fracture. Impression dictated by: Cooper Schneider M.D. 04/01/2025 2:39 PM Dictation Location: [place] [address] Transcribed By: ALDO 04/01/25 1439 Dictated By: Cooper Schneider II, MD 04/01/25 1437 Signed By: 04/01/25 1439[facility] GroupXR C-SPINE FLEX/EXT ONLY 2 VIEWS on 51-38-5805SO C-SPINE FLEX/EXT ONLY 2 VIEWSEXAMINATION: XR C-SPINE FLEX/EXT ONLY 2 VIEWSPRO 03/29/2025 [...] ylosis. No prevertebral soft tissue swelling. MACRO: [facility] SystemXR Cervical spine Lateral Views W flexion and W extensionon 10-95-7484WSCGLKHEHJS: XR C-SPINE FLEX/EXT ONLY 2 VIEWSPRO 03/29/2025 [...] ylosis. No prevertebral soft tissue swelling. MACRO: Jarrett Denny, - 03/31/2025 EXAMINATION: XR C-SPINE FLEX/EXT ONLY [...] No prevertebral soft tissue swelling. MACRO: None [facility] Cervical spine Lateral Views W flexion and W extensionOrdered By: Jarrett Jackson on 68-49-9397TqzyiBwkqul Work Phone: Progress Noteson 55-71-2529Zogpguwufeypi Authentication Interface Message TextSoft cervical collar dispensed by clinician.NormalThe [employer]360 SystemTranscription Authentication Interface Message TextPatient was identified by name and date of . Ella Henderson MA Patient at risk for falls:No Falls Risk protocol implemented: NoNormalThe [facility] SystemXR Cervical spine Lateral Views W flexion and W extensionon 27-41-3151Wqpifglfv Study observation (narrative)MetroHealthProgress Noteson 84-59-0016Otjwrqkewhdef Authentication Interface Message TextDX: [id number] Posterior cervical laminoplasty, C4 to C7, with Globus Canopy laminoplasty system. LV: [id number] Ms Rubio returns today for her 2 year follow up. PE: Incision C/D/I, at neuro baseline, deltoids intact, she has lost some fascial integrity but the skin is still mobile over the spinous processes. INV: Standing lateral flex-ex cervical xrays, no issues IMP: 74yo female s/p C4-C7 laminoplasty, doing well at 2 year. PLAN: No restrictions, she can follow up PRN.NormalThe [employer] System Cult,Urineon 50-30-7545Mydl,UrineSpecimen Description .CLEAN CATCH URINE Special Requests Site: Urine Culture SALMONELLA SPECIES >100,000 CFU/ML Report Status FINAL 02/16/2025 SUSCEPTIBILITY Organism SALMONELLA SPECIES Method TERESA Ampicillin <=2 SUSCEPTIBLE Cefepime <=0.12 SUSCEPTIBLE Levofloxacin <=0.12 SUSCEPTIBLE Trimethoprim/Sulfa <=20 SUSCEPTIBLESusceptibleMercy Raymondville HospitalComment on above:Performed By: #### URC #### [facility] [address] [place] [address] Surgery Scheduling Coordinator: Beto Farah MD [facility] [address] [place] [address] [place] [address] Surgery Scheduling Coordinator: Wilver Calvillo MDBUN & Creatinineon 97-87-9713Igsmaivklv [Mass/Vol] 1.4 mg/dLHigh0.50 - 0.90 mg/dLBon Highland District HospitalEst, Glom Filt Nzmq51Vxi- PINFBon [facility] on above: These results are not intended [...] tubular secretion. Interpretation and review of laboratory resultsAbnormalBon [facility] Urea nitrogen [Mass/Vol]38 mg/dLHigh8 - 23 mg/dLBon [facility] CenterBUN + Creatinineon 43-41-6312Oavxjmvnay [Mass/Vol]1.4 mg/dL High0.50-0.90[facility] MiamisburgComharbor beach community hospital on above:Performed By: #### UAMIC #### [address] [place] [address] Surgery Scheduling Coordinator: Wilver Calvillo MDGFR/1.73 sq M.predicted among non-blacks MDRD (S/P/Bld) [Vol rate/Area]40 mL/min/{1.73_m2}Low>60[facility] on above:Result Comment: These results are not intended for [...] or following therapy that affects renal tubular secretion.Performed By: #### UAMIC #### [facility] [address] [place] [address] Surgery Scheduling Coordinator: Wilver Calvillo MDUrea nitrogen [Mass/Vol]38 mg/dL77 Brewer StreetComment on above:Performed By: #### UAMIC #### [facility] [address] [place] [address] Surgery Scheduling Coordinator: KAREEM Naylor UROGRAMon 06-74-8941XS UROGRAMEXAMINATION: CT UROGRAM 02/14/2025 2:47 pm TECHNIQUE: CT [...] Peck DO Signed by: Joesph Peck DO 9/24/25 Final resultNormalMercy Raymondville Hospital1. Punctate nonobstructing calculus within the upper pole [...] with coronary arterial calcifications. Small pericardial effusion. MHPN RIS CONSOLIDATEDEXAMINATION: CT UROGRAM 02/14/2025 2:47 pm TECHNIQUE: CT [...] present within the lower anterior abdominal wall. [facility] Joesph Barraza, DO - 02/14/2025 EXAMINATION: CT UROGRAM 02/14/2025 [...] with coronary arterial calcifications. Small pericardial effusion. [facility] HealthcareRadiology Study observation (narrative)[facility] UROGRAMOrdered By: Joesph Peck on 43-89-2454Seo [facility] Work Phone: Urinalysis w/ Microon 87-53-0543Olcokwzx3+AbnormalNONE [facility] MiamisburgComment on above:Performed By: #### URC #### [facility] [address] [place], [place] [id number] Surgery Scheduling Coordinator: Beto Farah MD [facility] [address] [place] [address] [place] [address] Surgery Scheduling Coordinator: Wilver Calvillo MDBilirubin, SemiQt,UrNegativeNormalNEGKettering Health MiamisburgComment on above:Performed By: #### URC #### [facility] [employer] [address] [place] [address] Surgery Scheduling Coordinator: Beto Farah MD [facility] [address] [place] [address] [place] [address] Surgery Scheduling Coordinator: Wilver Calvillo MDBlood, Urine3+AbnormalNEGKettering Health Miamisburg Comment on above:Performed By: #### URC #### [place] [address] [place] [address] Surgery Scheduling Coordinator: Beto Farah MD [address] [place], [place] [address] Surgery Scheduling Coordinator: NATHAN Naylorlarity (U)CloudyAbnormalCLEARMercy Hospital For Special CareComment on above:Performed By: #### URC #### [address] [address] Surgery Scheduling Coordinator: Beto Farah MD [address] [place], [place] [address] Surgery Scheduling Coordinator: NATHAN Naylorolor (U)BrownAbnormalYSheltering Arms Hospital Comment on above:Performed By: #### URC #### [address] [address] Surgery Scheduling Coordinator: Beto Farah MD [address] [place], [place] [address] Surgery Scheduling Coordinator: Wilver Calvillo MDEpithelial cells LM Ql (Urine sed)0 TO 3Zbfwwz0-79 [facility] MiamisburgComment on above:Performed By: #### URC #### [facility] [address] [place] [address] Surgery Scheduling Coordinator: Beto Farah MD [address] [place], [facility]83 Surgery Scheduling Coordinator: Wilver Calvillo MDEpithelial, Renal0 TO 5Hwrill8VxavgUniversity of [facility] Health Center/John Dempsey HospitalComment on above:Performed By: #### URC #### [address] [address] Surgery Scheduling Coordinator: Beto Farah MD [facility] [address] [place] [address] Dr. [place], [place] [address] Surgery Scheduling Coordinator: Wilver Calvillo MDGlucose Ql (U)NegativeNormalNEGKettering Health MiamisburgComment on above:Performed By: #### URC #### [place] [address] [place] [address] Surgery Scheduling Coordinator: Beto Farah MD [address] [place], [place] [address] Surgery Scheduling Coordinator: Wilver Calvillo MDKetones Ql (U)TRACEAbnormalNEGKettering Health MiamisburgComment on above:Performed By: #### URC #### [address] [address] Surgery Scheduling Coordinator: Beto Farah MD [address] [place] [id number] Surgery Scheduling Coordinator: Wilver Calvillo MDLeukocyte esterase Test strip Ql (U)SMALLAbnormal NEGKettering Health MiamisburgComment on above:Performed By: #### URC #### [address] [address] Surgery Scheduling Coordinator: Beto Farah MD [address] [place], [place] [address] Surgery Scheduling Coordinator: Benigno Naylorite,UrNegativeNormalCincinnati [facility] Comment on above:Performed By: #### URC #### [address] [address] Surgery Scheduling Coordinator: Beto Farah MD [address] [place], [facility]83 Surgery Scheduling Coordinator: LORI Naylor,Ur5.7Assrzp5.0-9.0K[facility] Health MiamisburgComment on above:Performed By: #### URC #### [address] [address] Surgery Scheduling Coordinator: Beto Farah MD [facility] [address] [place] [address] Dr. [place], [place] [address] Surgery Scheduling Coordinator: Ping Naylor Ql (U)2+ mg/dLAbnormalNEGKettering Health MiamisburgComment on above:Performed By: #### URC #### [facility] [address] [place] [address] Surgery Scheduling Coordinator: Beto Farah MD [facility] [address] [place] [address] [place] [address] Surgery Scheduling Coordinator: MORIS Naylorpec. [place],Ur1.236Ansq2.010-1.020K[facility] Health MiamisburgComment on above:Performed By: #### URC #### [facility] [address] [place] [address] Surgery Scheduling Coordinator: Beto Farah MD [address] [place] [address] Surgery Scheduling Coordinator: Janet Naylor RBC's50 TO 642Fboxhd9-4YvxfjNorwalk Memorial Hospital Comment on above:Performed By: #### URC #### [facility] [address] [place] [address] Surgery Scheduling Coordinator: Beto Farah MD [address] [place] [address] Surgery Scheduling Coordinator: Janet Naylor WBC's10 TO 56Wngdou9-1HrtcvKettering Health Miamisburg Comment on above:Performed By: #### URC #### [facility] [facility] [address] [place] [address] Surgery Scheduling Coordinator: Beto Farah MD [facility] [address] [place] [address] [place] [address] Surgery Scheduling Coordinator: Wilver Calvillo MDUrobilinogen,UrNormalNormal0.0-1.0K[facility]tering Health MiamisburgComment on above:Performed By: #### URC #### [facility] [address] [place] [address] Surgery Scheduling Coordinator: Beto Farah MD [facility] [address] [place] [address] [place] [address] Surgery Scheduling Coordinator: Wilver Calvillo MDUrinalysis with Microscopicon [id number] LM Ql (Urine sed)1+AbnormalNoneBon Secours Mercy HealthBilirubin Ql (U)Negative NEGATIVEBon Secours Mercy HealthClarity (U)CloudyAbnormalClearBon Secours Mercy HealthColor (U)BrownAbnormalYellowBon Secours Mercy HealthEpithelial cells LM.HPF (Urine sed) [#/Area]0 TO 2[facility] Mer[facility] HealthGlucose Test strip (U) [Mass/Vol]NegativeNEGATIVE mg/dLBon Secours Mercy HealthHemoglobin Auto test strip Ql (U)3+AbnormalNEGATIVEBon Secours Mercy HealthInterpretation and review of laboratory resultsAbnormalBon Secours Mercy HealthKetones (U) [Mass/Vol]TRACE AbnormalNEGATIVE mg/dLBon Secours Mercy HealthLeukocyte esterase Test strip Ql (U)SMALLAbnormalNEGATIVEBon Secours Mercy HealthNitrite Ql (U)NegativeNEGATIVE [facility]cy HealthpH (U)5.5 [pH]5.0 - 9.0[facility] HealthProtein (U) [Mass/Vol]2+AbnormalNEGATIVE mg/dLBon Secours Mercy HealthRBC LM.HPF (Urine sed) [#/Area]50 TO 100Bon [facility]cy HealthRenal Epithelial, UA0 TO 20 /HPF [facility] Mercy HealthSpecific gravity (U) [Rel density]1.710Ldsq2.010 - 1.020 [facility] HealthUrobilinogen Qn (U)Normal0.0 - 1.0 EU/dLBon Secours Mercy HealthWBC LM.HPF (Urine sed) [#/Area]10 TO 20Bon Sec[facility] Mercy HealthBon Secours Mercy HealthCult,Urineon [id number],UrineSpecimen Description .CLEAN CATCH URINE Special Requests Site: Urine Culture NO SIGNIFICANT GROWTH Report Status FINAL 02/07/2025[facility] Health Washington TownshipComment on above: Performed By: #### URC #### [employer] [address] [place] [address] Surgery Scheduling Coordinator: Beto Farah MD [facility] [address] [place], [place] 9[address]83 Surgery Scheduling Coordinator: Wilver Calvillo MDUrinalysis w/ Microon [id number]+Abnormal NONEMercy Hospital For Special CareComment on above:Performed By: #### UAMIC #### [facility] [address] [place], [place] [id number] Surgery Scheduling Coordinator: Wilver Calvillo MDBilirubin, SemiQt,UrNegativeNormalNEGMercy Hospital For Special CareComment on above:Performed By: #### UAMIC #### [facility] [address] [place], [place] 0222183 Surgery Scheduling Coordinator: Linda Naylor, UrineNegativeNormalNEGKettering Health Miamisburg Comment on above:Performed By: #### UAMIC #### [facility] [address] [place], [place] 5664383 Surgery Scheduling Coordinator: NATHAN Naylorlarity (U)SLIGHTLY CLOUDYAbnormalCLEARMercy Hospital For Special CareComment on above:Performed By: #### UAMIC #### [facility] [address] [place], [place] [id number] Surgery Scheduling Coordinator: NATHAN Naylorolor (U)YellowNormalYELMerUniversity of Connecticut Health Center/[facility] Comment on above:Performed By: #### UAMIC #### [facility] [address] [place], [place] 3658283 Surgery Scheduling Coordinator: Wilver Calvillo MDEpithelial cells LM Ql (Urine sed)10 TO 20Normal 0-25Mercy Hospital For Special CareComment on above:Performed By: #### UAMIC #### [facility] [address] [place], [place] 7843783 Surgery Scheduling Coordinator: Wilver Calvillo MDGlucose Ql (U)NegativeNormalNEGMercy Raymondville HospitalComment on above:Performed By: #### UAMIC #### [facility] [address] [place] [address] Dr. [place], [place] 8137283 Surgery Scheduling Coordinator: Debra Naylor Ql (U)NegativeNormalNEGKettering Health MiamisburgComment on above:Performed By: #### UAMIC #### [address] [place], [place] [id number] Surgery Scheduling Coordinator: Wilevr Calvillo MDLeukocyte esterase Test strip Ql (U)TRACEAbnormal NEGMerUniversity of Connecticut Health Center/John Dempsey HospitalComment on above:Performed By: #### UAMIC #### [address] [place], [place] 5680883 Surgery Scheduling Coordinator: Laura Naylor StrandsTRACEAbnormalNONEMercDanbury HospitalComment on above:Performed By: #### UAMIC #### [address] [place], [place] [address] Surgery Scheduling Coordinator: Benigno Naylorite,UrNegativeNormalNEGKettering Health Miamisburg Comment on above:Performed By: #### UAMIC #### [address] [place], [place] [address] Surgery Scheduling Coordinator: LORI Naylor,Ur5.7Jehhsm3.0-9.0K[facility] Health MiamisburgComment on above:Performed By: #### UAMIC #### [address] [place], [facility]83 Surgery Scheduling Coordinator: LORI Naylorrotein Ql (U)NegativeNormalNEGKettering Health MiamisburgComment on above:Performed By: #### UAMIC #### [facility] [address] [place] [address] Dr. [place], [place] [id number] Surgery Scheduling Coordinator: Bronson Naylor. [place],Ur1.951Vafvnp3.010-1.020K[facility]tering Health MiamisburgComment on above:Performed By: #### UAMIC #### [facility] [address] [place] [address] Dr. [place], [place] 2886083 Surgery Scheduling Coordinator: Janet Naylor RBC'sNoneNormal0-2MNorwalk Memorial Hospital Comment on above:Performed By: #### UAMIC #### [facility] [address] [place] [address] Surgery Scheduling Coordinator: Janet Naylor WBC's5 TO 30Tdzwzx5-8FjjryKettering Health Miamisburg Comment on above:Performed By: #### UAMIC #### [facility] [address] [place], [place] 9517183 Surgery Scheduling Coordinator: Wilver Calvillo MDUrobilinogen,UrNormalNormal0.0-1.0K[facility] Health MiamisburgComment on above:Performed By: #### UAMIC #### [facility] [address] [place] [address] Dr. [place], [facility]83 Surgery Scheduling Coordinator: Wilver Calvillo MDYeastPRESENCE NOTEDAbnormalNONEMercDanbury HospitalComment on above:Performed By: #### UAMIC #### [facility] [address] [place] [address] Dr. [place], [place] 5702883 Surgery Scheduling Coordinator: Wilver Calvillo MDUrinalysis with Microscopicon [id number] LM Ql (Urine sed)1+AbnormalNoneBon Secours Mercy HealthBilirubin Ql (U)Negative NEGATIVEBon Secours Mercy HealthClarity (U)SLIGHTLY CLOUDYAbnormalClearBon Secours The Christ Hospitaly HealthColor (U)YellowYellowBon Secours [facility] System HealthEpithelial cells LM.HPF (Urine sed) [#/Area]10 TO 20Bon [facility] Mercy HealthGlucose Test strip (U) [Mass/Vol]NegativeNEGATIVE mg/dLBon Secours Mercy HealthHemoglobin Auto test strip Ql (U)NegativeNEGATIVEBon Secours Mercy HealthInterpretation and review of laboratory resultsAbnormalBon Secours Mercy HealthKetones (U) [Mass/Vol]NegativeNEGATIVE mg/dLBon Secours Mercy HealthLeukocyte esterase Test strip Ql (U)TRACEAbnormalNEGATIVEBon Secours Mercy HealthMucus Ql (Urine sed) TRACEAbnormalNoneBon Secours Mercy HealthNitrite Ql (U)NegativeNEGATIVEBon Secours Mercy HealthpH (U)5.5 [pH]5.0 - 9.0[facility] HealthProtein (U) [Mass/Vol]NegativeNEGATIVE mg/dLBon Secours Mercy HealthRBC LM.HPF (Urine sed) [#/Area]NoneBon Secours Mercy HealthSpecific gravity (U) [Rel density]1.0201.010 - 1.020Bon Sec[facility] Mercy HealthUrobilinogen Qn (U)Normal0.0 - 1.0 EU/dLBon Secours Mercy HealthWBC LM.HPF (Urine sed) [#/Area]5 TO 10Bon Secours Mercy HealthYeast LM Ql (Urine sed)PRESENCE NOTEDAbnormalNoneBon Secours Mercy Health Bon Secours Mercy HealthNo Panel Informationon [id number] Study observation (narrative)[facility] Hip - left 3 Viewson [id number] Result: AP and lateral of left hip showed acceptable position and alignment of left total hip arthroplasty. There was no evidence of loosening of the acetabular cup or femoral stem. Femoral head was well centered in the acetabular liner without evidence of asymmetric or accelerated wear. There was no gross evidence of fracture and/or dislocation. Impression: Unremarkable left total hip arthroplasty. [facility] HospitalRadiology Study observation (narrative)[facility] Knee - left 1 or 2 Viewson [id number] Result: AP and lateral of left knee [...] dislocation. Impression: Unremarkable left total knee arthroplasty. [facility] Knee - right 1 or 2 Viewson [id number] Result: AP and lateral of right knee [...] dislocation. Impression: Unremarkable right total knee arthroplasty. [facility] METABOLIC PANELon 32-38-2435Yuabg gap [Moles/Vol]6 mmol/LNormal5-15ProTrihealth Bethesda Butler HospitalComment on above:Performed By: #### CBCA #### [facility] ([facility]) [address] [place] [address] VIRCalcium [Mass/Vol]8.2 mg/dLLow8.5-10.5PDayton Osteopathic HospitalComment on above:Performed By: #### CBCA #### [facility] ([facility]) [address] [place] [address] VIRChloride [Moles/Vol]111 mmol/ACrbx75-546CylTfvlzv [place] HospitalComment on above:Performed By: #### CBCA #### [facility] ([facility]) [address] [place] [address] VIRCO2 [Moles/Vol]22 mmol/DStlujp60-50YguWcqrqzDayton Osteopathic Hospital Comment on above:Performed By: #### CBCA #### [facility] ([facility]) [address] [place] [address] VIRCreatinine [Mass/Vol]0.90 mg/dLNormal0.40-1.00ProTrihealth Bethesda Butler HospitalComment on above:Result Comment: METHOD TRACEABLE TO IDAK STANDARDPerformed By: #### CBCA #### [facility] ([facility]) [address] [place] [address] VIRGFR/1.73 sq M.predicted among non-blacks MDRD (S/P/Bld) [Vol rate/Area]67 mL/min/{1.73_m2}Normal>=60ProTrihealth Bethesda Butler HospitalComment on above:Result Comment: Reported eGFR is based on the CKD-EPI 2020 equation that does not use a race coefficient.Performed By: #### CBCA #### [facility] ([facility]) [address] [place] [address] VIRGlucose [Mass/Vol]165 mg/mMEmdt45-75SayOxtmij [place] HospitalComment on above:Performed By: #### CBCA #### [facility] ([facility]) [address] [place] [address] VIRPotassium [Moles/Vol]4.2 mmol/LNormal3.5-5.0ProMedica [facility] City HospitalComment on above:Performed By: #### CBCA #### [facility] ([facility]) [address] [place] [address] VIRSodium [Moles/Vol]139 mmol/TZbbtep577-547RlaZlxmsp [place] HospitalComment on above:Performed By: #### CBCA #### [facility] ([facility]) [address] [place] [address] VIRUrea nitrogen [Mass/Vol]22 mg/dLNormal5-27ProKettering Health Washington Township HospitalComment on above:Performed By: #### CBCA #### [facility] ([facility]) [address] [place] [address] VIRBEDSIDE GLUCOSEon 25-99-7747Hurpnnq [Mass/Vol]203 mg/dLHigh 65-99ProKettering Health Washington Township HospitalComment on above:Performed By: #### CBCA #### [facility] ([facility]) [address] [place] [address] VIRGlucose [Mass/Vol]245 mg/bTMmyx60-06QyoEeyivx [place] HospitalComment on above:Performed By: #### CBCA #### [facility] ([facility]) [address] [place] [address] VIRBasic Metabolic Panelon [id number] gap [Moles/Vol]6 mmol/L5 - 15 mmol/LProMedica Health SystemCalcium [Mass/Vol]8.2 mg/dLLow8.5 - 10.5 mg/dLProMedica Health SystemChloride [Moles/Vol]111 mmol/LHigh98 - 109 mmol/[facility] Health SystemCO2 [Moles/Vol]22 mmol/L22 - 32 mmol/[facility] SystemCreatinine [Mass/Vol]0.9 mg/dL0.40 - 1.00 mg/dLWilson Street HospitalComment on above:METHOD TRACEABLE TO IDMS STANDARDEGFR Non-Race Dependent 67- PINFPLakeHealth TriPoint Medical CenterComment on above:Reported eGFR is based on the CKD-EPI 2020 equation that does not use a race coefficient. Glucose [Mass/Vol]165 mg/tKNcen96 - 99 mg/dL[address] Hospital Interpretation and review of laboratory resultsAbnoPerson Memorial Hospital Potassium [Moles/Vol]4.2 mmol/L3.5 - 5.0 mmol/[facility] Health SystemSodium [Moles/Vol]139 mmol/L134 - 146 mmol/[facility] SystemUrea nitrogen [Mass/Vol]22 mg/dL5 - 27 mg/dLForbes Hospital Bedside Glucose *Place/Obtain serum glucose if >500 per glucometer.on 10-03-2024 Glucose [Mass/Vol]203 mg/tYNhjd48 - 99 mg/dL[address] Hospital Interpretation and review of laboratory resultsAbBlack River Memorial HospitalGlucose [Mass/Vol]245 mg/uIBfea80 - 99 mg/dLWilson [address] HospitalInterpretation and review of laboratory resultsAbSouthwood Psychiatric HospitalCBC WITH AUTO DIFFERENTIALon 10-03-2024 BASOPHILS ABSOLUTE COUNT (10*3/UL) BY AUTOMATED COUNT0.0 10*3/uLNormal0.0-0.2 [facility] HospitalComment on above:Performed By: #### CBCA #### [facility] ([facility]) [address] [place] [address] VIRBASOPHILS RELATIVE PERCENT BY AUTOMATED COUNT1.2 %Normal [facility] HospitalComment on above:Performed By: #### CBCA #### [facility] ([facility]) [address] [place] [address] VIRCELLAVISION DIFFERENTIAL TYPEAUTOMATED DIFFERENTIALNormal ProMOhio State Health System HospitalComment on above:Performed By: #### CBCA #### [facility] ([facility]) [address] [place] [address] VIREosinophils (Bld) [#/Vol]0.1 10*3/uLNormal0.0-0.4ProKettering Health Washington Township HospitalComment on above:Performed By: #### CBCA #### [facility] ([facility]) [address] [place] [address] VIREOSINOPHILS RELATIVE PERCENT BY AUTOMATED COUNT4.3 %Normal [facility] HospitalComment on above:Performed By: #### CBCA #### [facility] ([facility]) [address] [place] [address] VIRErythrocyte distribution width (RBC) [Ratio]15.0 %Normal 11.5-15ProKettering Health Washington Township HospitalComment on above:Performed By: #### CBCA #### [facility] ([facility]) [address] [place] [address] VIRHematocrit (Bld) [Volume fraction]26.8 %Hvm96-82OzvQdylub [place] HospitalComment on above:Performed By: #### CBCA #### [facility] ([facility]) [address] [place] [address] VIRHemoglobin (Bld) [Mass/Vol]9.1 g/dLLow11.7-15.5PKettering Health Dayton HospitalComment on above:Performed By: #### CBCA #### [facility] ([facility]) [address] [place] [address] VIRLYMPHOCYTES ABSOLUTE COUNT (10*3/UL) BY AUTOMATED COUNT0.8 10*3/uLLow1.0-3.5PKettering Health Dayton HospitalComment on above:Performed By: #### CBCA #### [facility] ([facility]) [address] [place] [address] VIRLYMPHOCYTES RELATIVE PERCENT BY AUTOMATED COUNT23.3 %Normal [facility] HospitalComment on above:Performed By: #### CBCA #### [facility] ([facility]) [address] [place] [address] VIRMCH (RBC) [Entitic mass]29.7 bpPkmdsc71-48VwlKjdoss Morley HospitalComment on above:Performed By: #### CBCA #### [facility] ([facility]) [address] [place] [address] VIRMCHC (RBC) [Mass/Vol]33.9 g/kDMmqyud86-58BaeIrdlgu [facility] HospitalComment on above:Performed By: #### CBCA #### [facility] ([facility]) [address] [place] [address] VIRMCV (RBC) [Entitic vol]88 iVSbmqqx15-533CilDwdivc Morley HospitalComment on above:Performed By: #### CBCA #### [facility] ([facility]) [address] [place] [address] VIRMONOCYTES ABSOLUTE COUNT (10*3/UL) BY AUTOMATED COUNT0.4 10*3/uLNormal0.0-0.9ProMedica [facility] HospitalComment on above:Performed By: #### CBCA #### [facility] ([facility]) [address] [place] [address] VIRMONOCYTES RELATIVE PERCENT BY AUTOMATED COUNT11.2 %Normal [facility] HospitalComment on above:Performed By: #### CBCA #### [facility] ([facility]) [address] [place] [address] VIRNEUTROPHILS ABSOLUTE COUNT BY AUTOMATED COUNT2.1 10*3/uL Normal1.5-6.6ProMedica [facility]ley HospitalComment on above:Performed By: #### CBCA #### [facility] ([facility]) [address] [place] [address] VIRNEUTROPHILS RELATIVE PERCENT BY AUTOMATED COUNT60.0 %Normal [facility] HospitalComment on above:Performed By: #### CBCA #### [facility] ([facility]) [address] [place] [address] VIRPlatelet mean volume (Bld) [Entitic vol]8.9 fLNormal7-12 [facility] HospitalComment on above:Performed By: #### CBCA #### [facility] ([facility]) [address] [place] [address] VIRPlatelets (Bld) [#/Vol]99 10*3/eBFxs051-103NsvPuhabnCleveland Clinic Lutheran HospitalComment on above:Performed By: #### CBCA #### [facility] ([facility]) [address] [place] [address] VIRRBC COUNT3.06 X10E12/LLow3.8-5.2PDayton Osteopathic Hospital Comment on above:Performed By: #### CBCA #### [facility] ([facility]) [address] [place] [address] VIRWBC (Bld) [#/Vol]3.4 10*3/uLLow4-11[facility] Comment on above:Performed By: #### CBCA #### [facility] ([facility]) [address] [place] [address] VIRCBC auto differentialon 05-21-1534Jkguqunxq (Bld) [#/Vol]0 10*3/uL0.0 - 0.2 10*3/uLProMedica Lakehealth [facility] Center SystemBasophils/100 WBC (Bld)1.2 % [address] HospitalDifferential cell count method Nom (Bld)AUTOMATED DIFFERENTIALWilson Street HospitalEosinophils (Bld) [#/Vol]0.1 10*3/uL0.0 - 0.4 10*3/uLProThe Bellevue Hospital SystemEosinophils/100 WBC (Bld)4.[address] %[address] HospitalErythrocyte distribution width (RBC) [Ratio]15 %11.5 - 15 %[address] HospitalHematocrit (Bld) [Volume fraction]26.8 %Low35 - 47 %[address] HospitalHemoglobin (Bld) [Mass/Vol]9.1 g/dLLow11.7 - 15.5 g/dLWilson [address] HospitalInterpretation and review of laboratory resultsAbnormalWilson Street HospitalLymphocytes (Bld) [#/Vol]0.8 10*3/uLLow1.0 - 3.5 10*3/uLWilson [address] HospitalLymphocytes/100 WBC (Bld)23.3 %[facility] HospitalH (RBC) [Entitic mass]29.7 pg27 - 34 [facility] HospitalMCHC (RBC) [Mass/Vol]33.9 g/dL32 - 36 g/dLWilson Street HospitalMCV (RBC) [Entitic vol]88 fL80 - [address] HospitalMonocytes (Bld) [#/Vol]0.4 10*3/uL0.0 - 0.9 10*3/uL [address] HospitalMonocytes/100 WBC (Bld)11.2 %[facility] Neutrophils (Bld) [#/Vol]2.1 10*3/uL1.5 - 6.6 10*3/[facility] Neutrophils/100 WBC (Bld)60 %[address] HospitalPlatelet mean volume (Bld) [Entitic vol]8.9 fL7 - 12 [facility] HospitalPlatelets (Bld) [#/Vol]99 10*3/uLOhioHealth Southeastern Medical CenterRBC (Bld) [#/Vol]3.06 10*6/[facility] MacombWBC LM Ql (Sput)3.4LowForbes HospitalCult, Bloodon [id number], BloodSpecimen Description .BLOOD Special Requests rfa, 2ml Culture NO GROWTH 5 DAYS Report Status FINAL 10/03/2024NoOhioHealth Van Wert Hospital HospitalComment on above: Performed By: #### BCUL2 #### [facility] [address] [place] [address] Surgery Scheduling Coordinator: Alexis Naylor,Bloodon [id number],BloodSpecimen Description .BLOOD Special Requests 20ml, rac Culture NO GROWTH 5 DAYS Report Status FINAL 10/03/2024NormalKettering Health MiamisburgComment on above: Performed By: #### BC #### [facility] [address] [place] [address] Surgery Scheduling Coordinator: Wilver Calvillo MDBEDSIDE GLUCOSEon [id number] [Mass/Vol]202 mg/wCXmkz41-11OobHxyzlyCleveland Clinic Lutheran HospitalComment on above:Performed By: #### CBCA #### [facility] ([facility]) [address] [place] [address] VIRBedside Glucose *Place/Obtain serum glucose if >500 per glucometer.on 28-81-3720Fdqfiza [Mass/Vol]202 mg/oGZqwj94 - 99 mg/dLWilson [address] HospitalInterpretation and review of laboratory resultsAbnormalForbes HospitalCBC WITH AUTO DIFFERENTIALon 10-02-2024 BASOPHILS ABSOLUTE COUNT (10*3/UL) BY AUTOMATED COUNT0.0 10*3/uLNormal0.0-0.2 [facility] HospitalComment on above:Performed By: #### PTT #### [facility] ([facility]) [address] [place] [address] VIRBASOPHILS RELATIVE PERCENT BY AUTOMATED COUNT0.7 %Normal [facility] HospitalComment on above:Performed By: #### PTT #### [facility] ([facility]) [address] [place] [address] VIRCELLAVISION DIFFERENTIAL TYPEAUTOMATED DIFFERENTIALNormal [facility] HospitalComment on above:Performed By: #### PTT #### [facility] ([facility]) [address] [place] [address] VIREosinophils (Bld) [#/Vol]0.2 10*3/uLNormal0.0-0.4ProMedica Molrey HospitalComment on above:Performed By: #### PTT #### [facility] ([facility]) [address] [place] [address] VIREOSINOPHILS RELATIVE PERCENT BY AUTOMATED COUNT4.6 %Normal [facility] HospitalComment on above:Performed By: #### PTT #### [facility] ([facility]) [address] [place] [address] VIRErythrocyte distribution width (RBC) [Ratio]15.3 %High 11.5-15[facility] HospitalComment on above:Performed By: #### PTT #### [facility] ([facility]) [address] [place] [address] VIRHematocrit (Bld) [Volume fraction]26.5 %Egj86-23IbbLlvzlq [facility] HospitalComment on above:Performed By: #### PTT #### [facility] ([facility]) [address] [place] [address] VIRHemoglobin (Bld) [Mass/Vol]9.1 g/dLLow11.7-15.5[facility] HospitalComment on above:Performed By: #### PTT #### [facility] ([facility]) [address] [place] [address] VIRLYMPHOCYTES ABSOLUTE COUNT (10*3/UL) BY AUTOMATED COUNT0.7 10*3/uLLow1.0-3.5[facility] HospitalComment on above:Performed By: #### PTT #### [facility] ([facility]) [address] [place] [address] VIRLYMPHOCYTES RELATIVE PERCENT BY AUTOMATED COUNT21.4 %Normal [facility] HospitalComment on above:Performed By: #### PTT #### [facility] ([facility]) [address] [place] [address] VIRMCH (RBC) [Entitic mass]30.1 phBqgnfa31-57XvfDkubna [facility] City HospitalComment on above:Performed By: #### PTT #### [facility] [facility]) [address] [place] [address] VIRMCHC (RBC) [Mass/Vol]34.3 g/aCFgesnr65-52RoiMbxsmx [place] [facility] HospitalComment on above:Performed By: #### PTT #### [facility] ([facility]) [address] [place] [address] VIRMCV (RBC) [Entitic vol]88 bWTxipsz13-098XupMprtjs [place] [facility] HospitalComment on above:Performed By: #### PTT #### [facility] ([facility]) [address] [place] [address] VIRMONOCYTES ABSOLUTE COUNT (10*3/UL) BY AUTOMATED COUNT0.4 10*3/uLNormal0.0-0.9ProKettering Health Washington Township HospitalComment on above:Performed By: #### PTT #### [facility] ([facility]) [address] [place] [address] VIRMONOCYTES RELATIVE PERCENT BY AUTOMATED COUNT12.6 %Normal ProMOhio State Health System HospitalComment on above:Performed By: #### PTT #### [facility] ([facility]) [address] [place] [address] VIRNEUTROPHILS ABSOLUTE COUNT BY AUTOMATED COUNT2.1 10*3/uL Normal1.5-6.6ProKettering Health Washington Township HospitalComment on above:Performed By: #### PTT #### [facility] ([facility]) [address] [place] [address] VIRNEUTROPHILS RELATIVE PERCENT BY AUTOMATED COUNT60.7 %Normal ProMOhio State Health System HospitalComment on above:Performed By: #### PTT #### [facility] ([facility]) [address] [place] [address] VIRPlatelet mean volume (Bld) [Entitic vol]9.1 fLNormal7-12 [facility] HospitalComment on above:Performed By: #### PTT #### [facility] ([facility]) [address] [place] [address] VIRPlatelets (Bld) [#/Vol]97 10*3/eWDvq742-741OtqZptakfCleveland Clinic Lutheran HospitalComment on above:Performed By: #### PTT #### [facility] ([facility]) [address] [place] [address] VIRRBC COUNT3.01 X10E12/LLow3.8-5.2PDayton Osteopathic Hospital Comment on above:Performed By: #### PTT #### [facility] ([facility]) [address] [place] [address] VIRWBC (Bld) [#/Vol]3.5 10*3/uLLow4-11[facility] Comment on above:Performed By: #### PTT #### [facility] ([facility]) [address] [place] [address] VIRCBC auto differentialon 75-45-2851Febgdaxve (Bld) [#/Vol]0 10*3/uL0.0 - 0.2 10*3/uLProMediMiddletown State HospitalBasophils/100 WBC (Bld)0.7 % [facility] HospitalDifferential cell count method Nom (Bld)AUTOMATED DIFFERENTIALWilson Street HospitalEosinophils (Bld) [#/Vol]0.2 10*3/uL0.0 - 0.4 10*3/uLWilson Street HospitalEosinophils/100 WBC (Bld)4.6 %[address] HospitalErythrocyte distribution width (RBC) [Ratio]15.3 %High11.5 - 15 %[address] HospitalHematocrit (Bld) [Volume fraction]26.5 %Low35 - 47 %[address] HospitalHemoglobin (Bld) [Mass/Vol]9.1 g/dLLow11.7 - 15.5 g/dLWilson Street HospitalInterpretation and review of laboratory resultsAbnormalWilson Street HospitalLymphocytes (Bld) [#/Vol]0.7 10*3/uLLow1.0 - 3.5 10*3/uLWilson Street HospitalLymphocytes/100 WBC (Bld)21.4 %[facility] HospitalH (RBC) [Entitic mass]30.1 pg27 - 34 [facility] HospitalMCHC (RBC) [Mass/Vol]34.3 g/dL32 - 36 g/dLWilson Street HospitalMCV (RBC) [Entitic vol]88 fL80 - [address] HospitalMonocytes (Bld) [#/Vol]0.4 10*3/uL0.0 - 0.9 10*3/uL [address] HospitalMonocytes/100 WBC (Bld)12.6 %[facility] Neutrophils (Bld) [#/Vol]2.1 10*3/uL1.5 - 6.6 10*3/[facility] Neutrophils/100 WBC (Bld)60.7 %[address] HospitalPlatelet mean volume (Bld) [Entitic vol]9.1 fL7 - 12 [facility] HospitalPlatelets (Bld) [#/Vol]97 10*3/uLLowWilson Street HospitalRBC (Bld) [#/Vol]3.01 10*6/uLOhioHealth Southeastern Medical CenterWBC LM Ql (Sput)3.5LowForbes HospitalCOMPREHENSIVE METABOLIC PANELon 63-15-8858Qkrkkdm [Mass/Vol]2.9 g/dLLow 3.2-5.3PDayton Osteopathic HospitalComment on above:Performed By: #### PTT #### [facility] ([facility]) [address] [place] [address] VIRALP [Catalytic activity/Vol]119 U/PGccuwy22-769RbbMyonfhCleveland Clinic Lutheran HospitalComment on above:Performed By: #### PTT #### [facility] ([facility]) [address] [place] [address] VIRALT [Catalytic activity/Vol]28 U/LNormal<=31PKettering Health Dayton HospitalComment on above:Performed By: #### PTT #### [facility] ([facility]) [address] [place] [address] VIRAnion gap [Moles/Vol]8 mmol/LNormal5-15[facility] City HospitalComment on above:Performed By: #### PTT #### [facility] ([facility]) [address] [place] [address] VIRAST [Catalytic activity/Vol]30 U/LNormal<=41Pro[facility] HospitalComment on above:Performed By: #### PTT #### [facility] ([facility]) [address] [place] [address] VIRBilirubin [Mass/Vol]0.6 mg/dLNormal0.3-1.2PKettering Health Dayton HospitalComment on above:Performed By: #### PTT #### [facility] ([facility]) [address] [place] [address] VIRCalcium [Mass/Vol]8.3 mg/dLLow8.5-10.5PKettering Health Dayton HospitalComment on above:Performed By: #### PTT #### [facility] ([facility]) [address] [place] [address] VIRChloride [Moles/Vol]113 mmol/ATuue77-436TanJbtqvu [place] HospitalComment on above:Performed By: #### PTT #### [facility] ([facility]) [address] [place] [address] VIRCO2 [Moles/Vol]20 mmol/BKbm09-97OjiHxawpk [facility] Comment on above:Performed By: #### PTT #### [facility] ([facility]) [address] [place] [address] VIRCreatinine [Mass/Vol]0.97 mg/dLNormal0.40-1.00Pro[facility]ica [facility] City HospitalComment on above:Result Comment: METHOD TRACEABLE TO IDMS STANDARDPerformed By: #### PTT #### [facility] ([facility]) [address] [place] [address] VIRGFR/1.73 sq M.predicted among non-blacks MDRD (S/P/Bld) [Vol rate/Area]61 mL/min/{1.73_m2}Normal>=60Pro[facility]ica [facility] HospitalComment on above:Result Comment: Reported eGFR is based on the CKD-EPI 2020 equation that does not use a race coefficient.Performed By: #### PTT #### [facility] ([facility]) [address] [place] [address] VIRGlucose [Mass/Vol]215 mg/wKRscq04-33JrqNvoqbk [place] HospitalComment on above:Performed By: #### PTT #### [facility] ([facility]) [address] [place] [address] VIRPotassium [Moles/Vol]4.2 mmol/LNormal3.5-5.0ProSycamore Medical Centerca [place] HospitalComment on above:Performed By: #### PTT #### [facility] ([facility]) [address] [place] [address] VIRProtein [Mass/Vol]5.4 g/dLLow6.0-8.0ProKettering Health Washington Township HospitalComment on above:Performed By: #### PTT #### [facility] ([facility]) [address] [place] [address] VIRSodium [Moles/Vol]141 mmol/RAjodfn047-301WprLlmdvo [facility] HospitalComment on above:Performed By: #### PTT #### [facility] ([facility]) [address] [place] [address] VIRUrea nitrogen [Mass/Vol]28 mg/dLHigh5-27ProSycamore Medical Centerca [place] HospitalComment on above:Performed By: #### PTT #### [facility] ([facility]) [address] [place] [address] VIRComprehensive metabolic panelon 63-20-3927Zaocyzc [Mass/Vol] 2.9 g/dLLow3.2 - 5.3 g/dLProSycamore Medical Centerca Health SystemALP [Catalytic activity/Vol]119 U/L39 - 130 U/LProMedica Health SystemALT No additional P-5'-P [Catalytic activity/Vol]28 U/LNINF - 31 U/LProMedica Health SystemAnion gap [Moles/Vol]8 mmol/L5 - 15 mmol/LProMedica Health SystemAST [Catalytic activity/Vol]30 U/LNINF - 41 U/LProMedica Health SystemBilirubin [Mass/Vol]0.6 mg/dL0.3 - 1.2 mg/dL ProMedica Health SystemCalcium [Mass/Vol]8.3 mg/dLLow8.5 - 10.5 mg/dLProBullock County Hospital Health SystemChloride [Moles/Vol]113 mmol/LHigh98 - 109 mmol/LProMedica Health SystemCO2 [Moles/Vol]20 mmol/LLow22 - 32 mmol/LProMedica Health SystemCreatinine [Mass/Vol]0.97 mg/dL0.40 - 1.00 mg/dLOhio Valley Hospital SystemComment on above: METHOD TRACEABLE TO IDAK STANDARDEGFR Non-Race Ltiejndme49- [facility] SystemComment on above:Reported eGFR is based on the CKD-EPI 2020 equation that does not use a race coefficient. Glucose [Mass/Vol]215 mg/zCCxsf36 - 99 mg/dLOhio Valley Hospital System Interpretation and review of laboratory resultsAbnormalProThe [facility] System Potassium [Moles/Vol]4.2 mmol/L3.5 - 5.0 mmol/LProMedica Health SystemProtein [Mass/Vol]5.4 g/dLLow6.0 - 8.0 g/dLProBullock County Hospital Health SystemSodium [Moles/Vol]141 mmol/L134 - 146 mmol/LProMedica Health SystemUrea nitrogen [Mass/Vol]28 mg/dL High5 - 27 mg/dLOhio Valley Hospital SystemEGDon 09-34-3641HxfyirtChristina Noland DO - 10/02/[address] [facility] Patient Name: Ashlee Banerjee Procedure Date: 10/02/2024 1:24 PM CSN: [id number] Date of : 1950 Admit Type: Inpatient Age: 73 Room: [place] [address] Gender: Female Note Status: Finalized Attending MD: [...] a recent colonoscopy. - Follow-up with primary stock worker and deliverer at [place] for further management of underlying liver disease. Procedure Code(s): --- Professional --- 88699, Esophagogastroduodenoscopy, flexible, transoral; diagnostic, including collection of specimen(s) by brushing or washing, when performed (separate procedure) Diagnosis Code(s): --- Professional --- K76.6, Portal hypertension K31.89, Other diseases of stomach and duodenum K92.1, Melena (includes Hematochezia) CPT copyright 2022 [employer]. All rights reserved. The codes documented in this report are preliminary and upon patch sander review may be revised to meet current compliance requirements. Thomas Ridley, 10/02/2024 2:57:29 PM This report has been signed electronically. Number of Addenda: 0 Note Initiated On: 10/02/2024 1:24 PM [facility] HospitalEGD Study observationon 10-02-2024 This order has been auto-finalized for image and report archival in PACs. *For full report details, please reach out to your physician. This image is visible to you in MyChart.*[address] Street HospitalFOLATEon 78-44-5259SSGMZ ACID18.6 ng/mLNormal>5.8ProTrihealth Bethesda Butler HospitalComment on above:Performed By: #### PTT #### [facility] ([facility]) [address] [place] [address] VIRFolateon 59-16-5853Elcicb [Mass/Vol]18.6 ng/mL5.8 - PINF ng/mLWilson Street HospitalInterpretation and review of laboratory results NormalForbes HospitalHEMOGLOBIN A1Con 10-02-2024 Glucose [Mass/Vol]134 mg/dLNormalCleveland Clinic Lutheran HospitalComment on above: Performed By: #### PTT #### [facility] ([facility]) [address] [place] [address] PIIJtU6d (Bld) [Mass fraction]6.3 %High4.4-5.6C[facility] Luther[facility] HospitalComment on above:Result Comment: ADA Guidelines Result HgbA1c Normal : less than 5.7 % Prediabetes : 5.7 % to 6.4 % Diabetes : > 6.4 % Use with caution in patients with abnormal hemoglobin variants as the half-life of red blood cells and in vivo glycation rates are affected.Performed By: #### PTT #### [facility] ([facility]) [address] [place] [address] VIRHemoglobin A1con 05-31-9986Flxglzk glucose Estimated from glycated hemoglobin (Bld) [Mass/Vol]134 mg/dLWilson Street HospitalHbA1c (Bld) [Mass fraction]6.3 %High4.4 - 5.6 %[address] HospitalComment on above:ADA Guidelines Result HgbA1c Normal : less than 5.7 % Prediabetes : 5.7 % to 6.4 % Diabetes : > 6.4 % Use with caution in patients with abnormal hemoglobin variants as the half-life of red blood cells and in vivo glycation rates are affected. Interpretation and review of laboratory resultsAbnormalSelect Specialty Hospital - HarrisburgIONIZED MAGNESIUMon 82-32-5036Yypfbjdsx [Moles/Vol]0.63 mmol/LNormal0.45-0.74[facility] HospitalComment on above:Performed By: #### PTT #### [facility] ([facility]) [address] [place] [address] VIRIRON AND TIBCon 41-56-4905Rtvd [Mass/Vol]28 ug/yISqe56-834 [facility] HospitalComment on above:Performed By: #### PTT #### [facility] ([facility]) [address] [place] [address] VIRIRON UKSJHSH324 ug/bJQczfgz967-832DjbHgthabCleveland Clinic Lutheran Hospital Comment on above:Performed By: #### PTT #### [facility] ([facility]) [address] [place] [address] VIRIRON SATURATION9 % YMCXRURUJGUrw12-10DkqKaxcxq [place] HospitalComment on above:Performed By: #### PTT #### [facility] ([facility]) [address] [place] [address] VIRTransferrin [Mass/Vol]234 mg/uKFgosec774-348QjxEiwnmq [place] HospitalComment on above:Performed By: #### PTT #### [facility] ([facility]) [address] [place] [address] VIRIonized magnesiumon 46-53-6206Jkyfdlchthwlry and review of laboratory resultsNormalOhio Valley Hospital SystemMagnesium Ionized ISE (Bld) [Moles/Vol]0.63 mmol/L0.45 - 0.74 mmol/LProMedica Health SystemProMediUC Medical Center SystemIron and TIBCon 81-43-7173Irepdtrkfxrjce and review of laboratory results AbnormalProThe Bellevue Hospital SystemIron [Mass/Vol]28 ug/dLLow50 - 170 ug/dLProVeterans Health AdministrationIron binding capacity [Mass/Vol]328 ug/dL250 - 425 ug/dLWilson Street HospitalIron saturation [Mass fraction]9LowOhio Valley Hospital System Transferrin [Mass or moles/Vol]234 mg/dL168 - 336 mg/dLWilson [address] [facility] ProMedica Health SystemMAGNESIUMon 81-12-5307Qytdkajom [Mass/Vol]1.8 mg/dLNormal 1.8-2.6[facility] HospitalComment on above:Performed By: #### PTT #### [facility] ([facility]) [address] [place] [address] VIRMagnesiumon 18-37-3458Cqopfdxfjpwyre and review of laboratory resultsNormalOhio Valley Hospital SystemMagnesium [Mass/Vol]1.8 mg/dL1.8 - 2.6 mg/dLWilson Street HospitalNo Panel Informationon 42-90-4991UpjPjkngtWilson Street HospitalTHYROID PROFILE INCLUDES TSH FT4on 39-58-9447Nuvn T4 [Mass/Vol]0.94 ng/dLNormal0.61-1.60[facility] HospitalComment on above:Performed By: #### PTT #### [facility] ([facility]) [address] [place] [address] VIRTSH5.65 uIU/mLHigh0.49-4.67C[facility] Luther[facility] HospitalComment on above:Performed By: #### PTT #### [facility] ([facility]) [address] [place] [address] VIRThyroid profile includes TSH FT4on 97-90-9166Lgfn T4 [Mass/Vol]0.94 ng/dL0.61 - 1.60 ng/dLWilson Street HospitalInterpretation and review of laboratory resultsAbAtrium Health Wake Forest Baptist Qn5.65 m[IU]/L [facility] HospitalVITAMIN B12on 10-02-2024 Cobalamin (Vitamin B12) [Mass/Vol]pg/nNPjta266-176JptMnqlfjSt. Rita's Hospital on above:Performed By: #### CBCA #### [facility] ([facility]) [address] [place] [address] VIRVitamin B12on 69-35-9508Arnvfmmgy (Vitamin B12) [Mass/Vol] pg/uUUnyj154 - 914 pg/mLWilson Street HospitalInterpretation and review of laboratory resultsAbSouthwood Psychiatric HospitalCB WITH AUTO DIFFERENTIALon 71-96-4691CGOXNBMBW ABSOLUTE COUNT (10*3/UL) BY AUTOMATED COUNT0.0 10*3/uLNormal0.0-0.2PDayton Osteopathic HospitalComment on above:Performed By: #### PINR #### [facility] ([facility]) [address] [place] [address] VIRBASOPHILS RELATIVE PERCENT BY AUTOMATED COUNT0.7 %Normal [facility] HospitalComment on above:Performed By: #### PINR #### [facility] ([facility]) [address] [place] [address] VIRCELLAVISION DIFFERENTIAL TYPEAUTOMATED DIFFERENTIALNormal [facility] HospitalComment on above:Performed By: #### PINR #### [facility] ([facility]) [address] [place] [address] VIREosinophils (Bld) [#/Vol]0.2 10*3/uLNormal0.0-0.4Pro[facility] [place] HospitalComment on above:Performed By: #### PINR #### [facility] ([facility]) [address] [place] [address] VIREOSINOPHILS RELATIVE PERCENT BY AUTOMATED COUNT4.4 %Normal [facility] [place] HospitalComment on above:Performed By: #### PINR #### [facility] ([facility]) [address] [place] [address] VIRErythrocyte distribution width (RBC) [Ratio]15.7 %High 11.5-15Pro[facility] [place] HospitalComment on above:Performed By: #### PINR #### [facility] ([facility]) [address] [place] [address] VIRHematocrit (Bld) [Volume fraction]26.3 %Mfm42-64HjwAmkfms [place] HospitalComment on above:Performed By: #### PINR #### [facility] ([facility]) [address] [place] [address] VIRHemoglobin (Bld) [Mass/Vol]8.9 g/dLLow11.7-15.5Pro[facility]ica [place] HospitalComment on above:Performed By: #### PINR #### [facility] ([facility]) [address] [place] [address] VIRLYMPHOCYTES ABSOLUTE COUNT (10*3/UL) BY AUTOMATED COUNT0.8 10*3/uLLow1.0-3.5Pro[facility]ica [place] HospitalComment on above:Performed By: #### PINR #### [facility] ([facility]) [address] [place] [address] VIRLYMPHOCYTES RELATIVE PERCENT BY AUTOMATED COUNT23.0 %Normal [facility] [place] HospitalComment on above:Performed By: #### PINR #### [facility] ([facility]) [address] [place] [address] VIRMCH (RBC) [Entitic mass]29.9 auGwfaow35-31DbrZubiwd [place] HospitalComment on above:Performed By: #### PINR #### [facility] ([facility]) [address] [place] [address] VIRMCHC (RBC) [Mass/Vol]34.0 g/fDOlqhhk90-06TocZbddzv [place] HospitalComment on above:Performed By: #### PINR #### [facility] ([facility]) [address] [place] [address] VIRMCV (RBC) [Entitic vol]88 vXEvewus33-910AlpJyjbdp [place] HospitalComment on above:Performed By: #### PINR #### [facility] ([facility]) [address] [place] [address] VIRMONOCYTES ABSOLUTE COUNT (10*3/UL) BY AUTOMATED COUNT0.4 10*3/uLNormal0.0-0.9Pro[facility]ica [place] HospitalComment on above:Performed By: #### PINR #### [facility] ([facility]) [address] [place] [address] VIRMONOCYTES RELATIVE PERCENT BY AUTOMATED COUNT10.4 %Normal [facility] [place] HospitalComment on above:Performed By: #### PINR #### [facility] ([facility]) [address] [place] [address] VIRNEUTROPHILS ABSOLUTE COUNT BY AUTOMATED COUNT2.1 10*3/uL Normal1.5-6.6ProMedica [place] HospitalComment on above:Performed By: #### PINR #### [facility] ([facility]) [address] [place] [address] VIRNEUTROPHILS RELATIVE PERCENT BY AUTOMATED COUNT61.5 %Normal [facility] [place] HospitalComment on above:Performed By: #### PINR #### [facility] ([facility]) [address] [place] [address] VIRPlatelet mean volume (Bld) [Entitic vol]9.6 fLNormal7-12 [facility] HospitalComment on above:Performed By: #### PINR #### [facility] ([facility]) [address] [place] [address] VIRPlatelets (Bld) [#/Vol]86 10*3/jAPjn131-867ZvbCazxdvCleveland Clinic Lutheran HospitalComment on above:Performed By: #### PINR #### [facility] ([facility]) [address] [place] [address] VIRRBC COUNT2.99 X10E12/LLow3.8-5.2PDayton Osteopathic Hospital Comment on above:Performed By: #### PINR #### [facility] ([facility]) [address] [place] [address] VIRWBC (Bld) [#/Vol]3.5 10*3/uLLow4-11[facility] Comment on above:Performed By: #### PINR #### [facility] ([facility]) [address] [place] [address] VIRCBC auto differentialon 52-25-0638Ikzljyzni (Bld) [#/Vol]0 10*3/uL0.0 - 0.2 10*3/uLOhio Valley Hospital SystemBasophils/100 WBC (Bld)0.7 % [address] HospitalDifferential cell count method Nom (Bld)AUTOMATED DIFFERENTIALWilson Street HospitalEosinophils (Bld) [#/Vol]0.2 10*3/uL0.0 - 0.4 10*3/uLProVeterans Health AdministrationEosinophils/100 WBC (Bld)4.4 %[address] HospitalErythrocyte distribution width (RBC) [Ratio]15.7 %High11.5 - 15 %[address] HospitalHematocrit (Bld) [Volume fraction]26.3 %Low35 - 47 %[address] HospitalHemoglobin (Bld) [Mass/Vol]8.9 g/dLLow11.7 - 15.5 g/dLWilson Street HospitalInterpretation and review of laboratory resultsAbnormalWilson Street HospitalLymphocytes (Bld) [#/Vol]0.8 10*3/uLLow1.0 - 3.5 10*3/uLWilson Street HospitalLymphocytes/100 WBC (Bld)23 %[facility] HospitalH (RBC) [Entitic mass]29.9 pg27 - 34 pgPLakeHealth TriPoint Medical CenterMCHC (RBC) [Mass/Vol]34 g/dL32 - 36 g/dLWilson Street HospitalMCV (RBC) [Entitic vol]88 fL80 - [address] HospitalMonocytes (Bld) [#/Vol]0.4 10*3/uL0.0 - 0.9 10*3/uL [address] HospitalMonocytes/100 WBC (Bld)10.4 %[facility] Neutrophils (Bld) [#/Vol]2.1 10*3/uL1.5 - 6.6 10*3/uLWilson [facility] Hospital Neutrophils/100 WBC (Bld)61.5 %[address] HospitalPlatelet mean volume (Bld) [Entitic vol]9.6 fL7 - 12 [facility] HospitalPlatelets (Bld) [#/Vol]86 10*3/uLLowWilson Street HospitalRBC (Bld) [#/Vol]2.99 10*6/uLLowWilson Street HospitalWBC LM Ql (Sput)3.5LowForbes HospitalCOMPREHENSIVE METABOLIC PANELon [id number] [Mass/Vol]2.9 g/dLLow 3.2-5.3PDayton Osteopathic HospitalComment on above:Performed By: #### PINR #### [facility] (TT) [address] [place] [address] VIRALP [Catalytic activity/Vol]113 U/CBgvajh31-596EatNiotud [place] HospitalComment on above:Performed By: #### PINR #### [facility] ([facility]) [address] [place] [address] VIRALT [Catalytic activity/Vol]32 U/LHigh<=31ProMedUniversity Hospitals Conneaut Medical Center HospitalComment on above:Performed By: #### PINR #### [facility] ([facility]) [address] [place] [address] VIRAnion gap [Moles/Vol]7 mmol/LNormal5-15[facility] HospitalComment on above:Performed By: #### PINR #### [facility] ([facility]) [address] [place] [address] VIRAST [Catalytic activity/Vol]30 U/LNormal<=41ProSycamore Medical Centerca [place] HospitalComment on above:Performed By: #### PINR #### [facility] LABORATORY ([facility]) [address] [place] [address] VIRBilirubin [Mass/Vol]0.9 mg/dLNormal0.3-1.2PKettering Health Dayton HospitalComment on above:Performed By: #### PINR #### [facility] ([facility]) [address] [place] [address] VIRCalcium [Mass/Vol]8.4 mg/dLLow8.5-10.5PKettering Health Dayton HospitalComment on above:Performed By: #### PINR #### [facility] ([facility]) [address] [place] [address] VIRChloride [Moles/Vol]114 mmol/LZjln85-895WnfYlorac [place] HospitalComment on above:Performed By: #### PINR #### [facility] ([facility]) [address] [place] [address] VIRCO2 [Moles/Vol]19 mmol/SPbv91-34CujQhbyje [facility] Comment on above:Performed By: #### PINR #### [facility] ([facility]) [address] [place] [address] VIRCreatinine [Mass/Vol]1.09 mg/dLHigh0.40-1.00ProSycamore Medical Centerca [place] HospitalComment on above:Result Comment: METHOD TRACEABLE TO IDMS STANDARD Performed By: #### PINR #### [facility] ([facility]) [address] [place] [address] VIRGFR/1.73 sq M.predicted among non-blacks MDRD (S/P/Bld) [Vol rate/Area]53 mL/min/{1.73_m2}Low>=60ProMedica [place] City HospitalComment on above: Result Comment: Reported eGFR is based on the CKD-EPI 2020 equation that does not use a race coefficient.Performed By: #### PINR #### [facility] ([facility]) [address] [place] [address] VIRGlucose [Mass/Vol]125 mg/pQEkxu42-08DbyMwvzfb [place] HospitalComment on above:Performed By: #### PINR #### [facility] ([facility]) [address] [place] [address] VIRPotassium [Moles/Vol]4.1 mmol/LNormal3.5-5.0ProKettering Health Washington Township HospitalComment on above:Performed By: #### PINR #### [facility] ([facility]) [address] [place] [address] VIRProtein [Mass/Vol]5.2 g/dLLow6.0-8.0ProKettering Health Washington Township HospitalComment on above:Performed By: #### PINR #### [facility] ([facility]) [address] [place] [address] VIRSodium [Moles/Vol]140 mmol/JVcopnu248-707JjsRvyvvi [place] HospitalComment on above:Performed By: #### PINR #### [facility] ([facility]) [address] [place] [address] VIRUrea nitrogen [Mass/Vol]37 mg/dLHigh5-27C[facility] Lutheran HospitalComment on above:Performed By: #### PINR #### [facility] ([facility]) [address] [place] [address] VIRComprehensive metabolic panelon 07-16-1289Cmkasiu [Mass/Vol] 2.9 g/dLLow3.2 - 5.3 g/dLProMedica Health SystemALP [Catalytic activity/Vol]113 U/L39 - 130 U/LProMedica Health SystemALT No additional P-5'-P [Catalytic activity/Vol]32 U/LHighNINF - 31 U/LProMedica Health SystemAnion gap [Moles/Vol] 7 mmol/L5 - 15 mmol/LProMedica Health SystemAST [Catalytic activity/Vol]30 U/L NINF - 41 U/LProMedica Health SystemBilirubin [Mass/Vol]0.9 mg/dL0.3 - 1.2 mg/dL Pro[facility]ica Health SystemCalcium [Mass/Vol]8.4 mg/dLLow8.5 - 10.5 mg/dLProMedica Health SystemChloride [Moles/Vol]114 mmol/LHigh98 - 109 mmol/LProMedica Health SystemCO2 [Moles/Vol]19 mmol/LLow22 - 32 mmol/LProMedica Health SystemCreatinine [Mass/Vol]1.09 mg/dLHigh0.40 - 1.00 mg/dLOhio Valley Hospital SystemComment on above:METHOD TRACEABLE TO IDMS STANDARDEGFR Non-Race Dwnlhosfy90Gad- PINF [facility] SystemComment on above:Reported eGFR is based on the CKD-EPI 2020 equation that does not use a race coefficient. Glucose [Mass/Vol]125 mg/lMUyzy37 - 99 mg/dLOhio Valley Hospital System Interpretation and review of laboratory resultsAbnormalProBullock County Hospital [facility] Potassium [Moles/Vol]4.1 mmol/L3.5 - 5.0 mmol/LProMedica Health SystemProtein [Mass/Vol]5.2 g/dLLow6.0 - 8.0 g/dLProMedica Health SystemSodium [Moles/Vol]140 mmol/L134 - 146 mmol/LProMedica Health SystemUrea nitrogen [Mass/Vol]37 mg/dL High5 - 27 mg/dLWilson Street HospitalHEMOGLOBIN AND HEMATOCRIT, BLOODon 17-65-7539Jowruqaeib (Bld) [Volume fraction]27.9 %Not23-23JojBljphl [place] HospitalComment on above:Performed By: #### PTT #### [facility] ([facility]) [address] [place] [address] VIRHemoglobin (Bld) [Mass/Vol]9.4 g/dLLow11.7-15.5PKettering Health Dayton HospitalComment on above:Performed By: #### PTT #### [facility] ([facility]) [address] [place] [address] VIRHematocrit (Bld) [Volume fraction]28.6 %Anx08-50PfaUlhqkh [place] HospitalComment on above:Performed By: #### PTT #### [facility] ([facility]) [address] [place] [address] VIRHemoglobin (Bld) [Mass/Vol]9.6 g/dLLow11.7-15.5PKettering Health Dayton HospitalComment on above:Performed By: #### PTT #### [facility] ([facility]) [address] [place] [address] VIRHemoglobin and hematocrit, bloodon 60-30-7249Owpidkbion (Bld) [Volume fraction]27.9 %Low35 - 47 %[facility] SystemHemoglobin (Bld) [Mass/Vol]9.4 g/dLLow11.7 - 15.5 g/dLWilson Street HospitalInterpretation and review of laboratory resultsAbnoAllegheny General HospitalHematocrit (Bld) [Volume fraction]28.6 %Low35 - 47 %ProMNew Ulm Medical Center SystemHemoglobin (Bld) [Mass/Vol]9.6 g/dLLow11.7 - 15.5 g/dLWilson Street HospitalInterpretation and review of laboratory resultsAbnormalMemorial Medical Center SystemIONIZED MAGNESIUMon 23-80-1016Uxowdhtdc [Moles/Vol] 0.57 mmol/LNormal0.45-0.74ProTrihealth Bethesda Butler HospitalComment on above:Performed By: #### PINR #### [facility] ([facility]) [address] [place] [address] VIRIonized magnesiumon 78-49-4649Fkduoddkoeudjf and review of laboratory resultsNormalOhio Valley Hospital SystemMagnesium Ionized ISE (Bld) [Moles/Vol]0.57 mmol/L0.45 - 0.74 mmol/LProMedica Formerly Self Memorial Hospital SystemMAGNESIUMon 18-34-7433Pjsgmimqc [Mass/Vol]1.8 mg/dLNormal1.8-2.6ProTrihealth Bethesda Butler HospitalComment on above:Performed By: #### PINR #### [facility] ([facility]) [address] [place] [address] VIRMagnesiumon 03-87-9871Dqhgnpsjoipfae and review of laboratory resultsNormalWilson Street HospitalMagnesium [Mass/Vol]1.8 mg/dL1.8 - 2.6 mg/dLWilson Street HospitalNo Panel Informationon 93-32-0550XaxKtliluVeterans Health AdministrationABO Rh Repeaton 79-85-2232TIRUSljBrckyx Health SystemRh Nom (Bld) PositiveProGuthrie Towanda Memorial HospitalCBC WITH AUTO DIFFERENTIAL on 24-52-5201FKCVBUGXN ABSOLUTE COUNT (10*3/UL) BY AUTOMATED COUNT0.0 10*3/uL Normal0.0-0.2PDayton Osteopathic HospitalComment on above:Performed By: #### PINR #### [facility] ([facility]) [address] [place] [address] VIRBASOPHILS RELATIVE PERCENT BY AUTOMATED COUNT0.7 %Normal ProMSouthview Medical CenterComment on above:Performed By: #### PINR #### [facility] ([facility]) [address] [place] [address] VIRCELLAVISION DIFFERENTIAL TYPEAUTOMATED DIFFERENTIALNormal [facility] [place] HospitalComment on above:Performed By: #### PINR #### [facility] ([facility]) [address] [place] [address] VIREosinophils (Bld) [#/Vol]0.1 10*3/uLNormal0.0-0.4ProSycamore Medical Centerca [place] HospitalComment on above:Performed By: #### PINR #### [facility] ([facility]) [address] [place] [address] VIREOSINOPHILS RELATIVE PERCENT BY AUTOMATED COUNT3.2 %Normal [facility] HospitalComment on above:Performed By: #### PINR #### [facility] ([facility]) [address] [place] [address] VIRErythrocyte distribution width (RBC) [Ratio]15.1 %High 11.5-15ProSycamore Medical Centerca [place] HospitalComment on above:Performed By: #### PINR #### [facility] ([facility]) [address] [place] [address] VIRHematocrit (Bld) [Volume fraction]26.2 %Kak06-98DruEgjmxf [place] HospitalComment on above:Performed By: #### PINR #### [facility] ([facility]) [address] [place] [address] VIRHemoglobin (Bld) [Mass/Vol]8.9 g/dLLow11.7-15.5ProMedUniversity Hospitals Conneaut Medical Center HospitalComment on above:Performed By: #### PINR #### [facility] ([facility]) [address] [place] [address] VIRLYMPHOCYTES ABSOLUTE COUNT (10*3/UL) BY AUTOMATED COUNT0.5 10*3/uLLow1.0-3.5ProMedUniversity Hospitals Conneaut Medical Center HospitalComment on above:Performed By: #### PINR #### [facility] ([facility]) [address] [place] [address] VIRLYMPHOCYTES RELATIVE PERCENT BY AUTOMATED COUNT15.3 %Normal [facility] [place] HospitalComment on above:Performed By: #### PINR #### [facility] ([facility]) [address] [place] [address] VIRMCH (RBC) [Entitic mass]30.0 gzRfxtmd91-06DmqRwaxcn [place] HospitalComment on above:Performed By: #### PINR #### [facility] ([facility]) [address] [place] [address] VIRMCHC (RBC) [Mass/Vol]34.2 g/mJOzvkhz74-95TrrTzgiwg [place] HospitalComment on above:Performed By: #### PINR #### [facility] ([facility]) [address] [place] [address] VIRMCV (RBC) [Entitic vol]88 iXPeuplx61-183VycQzrauh [place] HospitalComment on above:Performed By: #### PINR #### [facility] ([facility]) [address] [place] [address] VIRMONOCYTES ABSOLUTE COUNT (10*3/UL) BY AUTOMATED COUNT0.4 10*3/uLNormal0.0-0.9ProSycamore Medical Centerca [place] HospitalComment on above:Performed By: #### PINR #### [facility] ([facility]) [address] [place] [address] VIRMONOCYTES RELATIVE PERCENT BY AUTOMATED COUNT11.7 %Normal [facility] [place] HospitalComment on above:Performed By: #### PINR #### [facility] ([facility]) [address] [place] [address] VIRNEUTROPHILS ABSOLUTE COUNT BY AUTOMATED COUNT2.4 10*3/uL Normal1.5-6.6ProMedica [place] HospitalComment on above:Performed By: #### PINR #### [facility] ([facility]) [address] [place] [address] VIRNEUTROPHILS RELATIVE PERCENT BY AUTOMATED COUNT69.1 %Normal [facility] HospitalComment on above:Performed By: #### PINR #### [facility] ([facility]) [address] [place] [address] VIRPlatelet mean volume (Bld) [Entitic vol]9.7 fLNormal7-12 [facility] HospitalComment on above:Performed By: #### PINR #### [facility] ([facility]) [address] [place] [address] VIRPlatelets (Bld) [#/Vol]71 10*3/lRFrn760-317DvxOxyxnmCleveland Clinic Lutheran HospitalComment on above:Performed By: #### PINR #### [facility] ([facility]) [address] [place] [address] VIRRBC COUNT2.98 X10E12/LLow3.8-5.2PDayton Osteopathic Hospital Comment on above:Performed By: #### PINR #### [facility] ([facility]) [address] [place] [address] VIRWBC (Bld) [#/Vol]3.5 10*3/uLLow4-11[facility] Comment on above:Performed By: #### PINR #### [facility] ([facility]) [address] [place] [address] VIRCBC auto differentialon 64-85-0757Vlvzubgga (Bld) [#/Vol]0 10*3/uL0.0 - 0.2 10*3/uLProThe Bellevue Hospital SystemBasophils/100 WBC (Bld)0.7 % [address] HospitalDifferential cell count method Nom (Bld)AUTOMATED DIFFERENTIALWilson Street HospitalEosinophils (Bld) [#/Vol]0.1 10*3/uL0.0 - 0.4 10*3/uLProThe Bellevue Hospital SystemEosinophils/100 WBC (Bld)3.2 %[address] HospitalErythrocyte distribution width (RBC) [Ratio]15.1 %High11.5 - 15 %[address] HospitalHematocrit (Bld) [Volume fraction]26.2 %Low35 - 47 %[address] HospitalHemoglobin (Bld) [Mass/Vol]8.9 g/dLLow11.7 - 15.5 g/dLWilson [address] HospitalInterpretation and review of laboratory resultsAbnormalWilson Street HospitalLymphocytes (Bld) [#/Vol]0.5 10*3/uLLow1.0 - 3.5 10*3/uLWilson Street HospitalLymphocytes/100 WBC (Bld)15.3 %[facility] HospitalH (RBC) [Entitic mass]30 pg27 - 34 [facility] HospitalMCHC (RBC) [Mass/Vol]34.2 g/dL32 - 36 g/dLWilson Street HospitalMCV (RBC) [Entitic vol]88 fL80 - [address] HospitalMonocytes (Bld) [#/Vol]0.4 10*3/uL0.0 - 0.9 10*3/uL [address] HospitalMonocytes/100 WBC (Bld)11.7 %[facility] Neutrophils (Bld) [#/Vol]2.4 10*3/uL1.5 - 6.6 10*3/[facility] Neutrophils/100 WBC (Bld)69.1 %[address] HospitalPlatelet mean volume (Bld) [Entitic vol]9.7 fL7 - 12 [facility] HospitalPlatelets (Bld) [#/Vol]71 10*3/uLLowWilson Street HospitalRBC (Bld) [#/Vol]2.98 10*6/[facility] MacombWBC LM Ql (Sput)3.5LowForbes HospitalCOMPREHENSIVE METABOLIC PANELon 11-37-2318Qmaetry [Mass/Vol]3.0 g/dLLow 3.2-5.3PDayton Osteopathic HospitalComment on above:Performed By: #### PINR #### [facility] ([facility]) [address] [place] [address] VIRALP [Catalytic activity/Vol]123 U/MVuvxfw21-487LjpGxhrck [place] HospitalComment on above:Performed By: #### PINR #### [facility] ([facility]) [address] [place] [address] VIRALT [Catalytic activity/Vol]38 U/LHigh<=31Pro[facility] [place] HospitalComment on above:Performed By: #### PINR #### [facility] ([facility]) [address] [place] [address] VIRAnion gap [Moles/Vol]9 mmol/LNormal5-15Pro[facility] [place] HospitalComment on above:Performed By: #### PINR #### [facility] ([facility]) [address] [place] [address] VIRAST [Catalytic activity/Vol]36 U/LNormal<=41Pro[facility] [place] HospitalComment on above:Performed By: #### PINR #### [facility] ([facility]) [address] [place] [address] VIRBilirubin [Mass/Vol]1.0 mg/dLNormal0.3-1.2ProMedUniversity Hospitals Conneaut Medical Center HospitalComment on above:Performed By: #### PINR #### [facility] ([facility]) [address] [place] [address] VIRCalcium [Mass/Vol]8.3 mg/dLLow8.5-10.5ProMedDiley Ridge Medical Centero HospitalComment on above:Performed By: #### PINR #### [facility] ([facility]) [address] [place] [address] VIRChloride [Moles/Vol]116 mmol/EEisx59-794FeyUklcgs [place] HospitalComment on above:Performed By: #### PINR #### [facility] ([facility]) [address] [place] [address] VIRCO2 [Moles/Vol]17 mmol/TFid02-90WbiBppqfi [place] [facility] Comment on above:Performed By: #### PINR #### [facility] ([facility]) [address] [place] [address] VIRCreatinine [Mass/Vol]1.48 mg/dLHigh0.40-1.00ProTrihealth Bethesda Butler HospitalComment on above:Result Comment: METHOD TRACEABLE TO IDMS STANDARD Performed By: #### PINR #### [facility] ([facility]) [address] [place] [address] VIRGFR/1.73 sq M.predicted among non-blacks MDRD (S/P/Bld) [Vol rate/Area]37 mL/min/{1.73_m2}Low>=60ProTrihealth Bethesda Butler HospitalComment on above: Result Comment: Reported eGFR is based on the CKD-EPI 2020 equation that does not use a race coefficient.Performed By: #### PINR #### [facility] ([facility]) [address] [place] [address] VIRGlucose [Mass/Vol]203 mg/tSYohk18-49YzcTzxzdl [place] HospitalComment on above:Performed By: #### PINR #### [facility] ([facility]) [address] [place] [address] VIRPotassium [Moles/Vol]4.3 mmol/LNormal3.5-5.0ProTrihealth Bethesda Butler HospitalComment on above:Performed By: #### PINR #### [facility] ([facility]) [address] [place] [address] VIRProtein [Mass/Vol]5.3 g/dLLow6.0-8.0ProKettering Health Washington Township HospitalComment on above:Performed By: #### PINR #### [facility] ([facility]) [address] [place] [address] VIRSodium [Moles/Vol]142 mmol/DXltnis553-431CocYhpszw [place] HospitalComment on above:Performed By: #### PINR #### [facility] ([facility]) [address] [place] [address] VIRUrea nitrogen [Mass/Vol]50 mg/dLHigh5-27[facility] HospitalComment on above:Performed By: #### PINR #### [facility] ([facility]) [address] [place] [address] VIRComprehensive metabolic panelon 24-49-4021Jgirnob [Mass/Vol] 3 g/dLLow3.2 - 5.3 g/dLOhio Valley Hospital SystemALP [Catalytic activity/Vol]123 U/L39 - 130 U/LPrSedgwick County Memorial Hospital Health SystemALT No additional P-5'-P [Catalytic activity/Vol]38 U/LHighNINF - 31 U/[facility] Health SystemAnion gap [Moles/Vol] 9 mmol/L5 - 15 mmol/LPrSedgwick County Memorial Hospital Health SystemAST [Catalytic activity/Vol]36 U/L NINF - 41 U/[facility] SystemBilirubin [Mass/Vol]1 mg/dL0.3 - 1.2 mg/dL [address] HospitalCalcium [Mass/Vol]8.3 mg/dLLow8.5 - 10.5 mg/dLOhio Valley Hospital SystemChloride [Moles/Vol]116 mmol/LHigh98 - 109 mmol/[facility] Health SystemCO2 [Moles/Vol]17 mmol/LLow22 - 32 mmol/[facility] SystemCreatinine [Mass/Vol]1.48 mg/dLHigh0.40 - 1.00 mg/dLWilson Street HospitalComment on above:METHOD TRACEABLE TO IDAK STANDARDEGFR Non-Race Lrqhyphty51Bap- PINF [address] HospitalComment on above:Reported eGFR is based on the CKD-EPI 2020 equation that does not use a race coefficient. Glucose [Mass/Vol]203 mg/hPNmok28 - 99 mg/dLWilson [address] Hospital Interpretation and review of laboratory resultsAbnormalProThe Bellevue Hospital System Potassium [Moles/Vol]4.3 mmol/L3.5 - 5.0 mmol/LProMedcarraway methodist medical center Health SystemProtein [Mass/Vol]5.3 g/dLLow6.0 - 8.0 g/dLProThe Bellevue Hospital SystemSodium [Moles/Vol]142 mmol/L134 - 146 mmol/LProMedica Lakehealth [facility] SystemUrea nitrogen [Mass/Vol]50 mg/dL High5 - 27 mg/dLWilson Street HospitalHEMOGLOBIN AND HEMATOCRIT, BLOODon 92-41-4872Cvkyiafued (Bld) [Volume fraction]26.8 %Emg85-22IfvPftwck [place] HospitalComment on above:Performed By: #### PINR #### [facility] ([facility]) [address] [place] [address] VIRHemoglobin (Bld) [Mass/Vol]9.1 g/dLLow11.7-15.5PKettering Health Dayton HospitalComment on above:Performed By: #### PINR #### [facility] ([facility]) [address] [place] [address] VIRHematocrit (Bld) [Volume fraction]28.4 %Ntd92-79WyiXzpmao [place] HospitalComment on above:Performed By: #### PINR #### [facility] ([facility]) [address] [place] [address] VIRHemoglobin (Bld) [Mass/Vol]9.7 g/dLLow11.7-15.5PKettering Health Dayton HospitalComment on above:Performed By: #### PINR #### [facility] ([facility]) [address] [place] [address] VIRHematocrit (Bld) [Volume fraction]24.4 %Wrg05-39NbjPempbz [place] HospitalComment on above:Performed By: #### PINR #### [facility] ([facility]) [address] [place] [address] VIRHemoglobin (Bld) [Mass/Vol]8.3 g/dLLow11.7-15.5PKettering Health Dayton HospitalComment on above:Performed By: #### PINR #### [facility] ([facility]) [address] [place] [address] VIRHemoglobin and hematocrit, bloodon 30-72-0075Osmtbmimtx (Bld) [Volume fraction]26.8 %Low35 - 47 %[facility] SystemHemoglobin (Bld) [Mass/Vol]9.1 g/dLLow11.7 - 15.5 g/dLOhio Valley Hospital SystemInterpretation and review of laboratory resultsAbnoMarshfield Medical Center Beaver Dam SystemHematocrit (Bld) [Volume fraction]28.4 %Low35 - 47 %ProMw. d. partlow developmental centera [facility] SystemHemoglobin (Bld) [Mass/Vol]9.7 g/dLLow11.7 - 15.5 g/dLOhio Valley Hospital SystemInterpretation and review of laboratory resultsAbnoMarshfield Medical Center Beaver Dam SystemHematocrit (Bld) [Volume fraction]24.4 %Low35 - 47 %[facility] SystemHemoglobin (Bld) [Mass/Vol]8.3 g/dLLow11.7 - 15.5 g/dL [facility] SystemInterpretation and review of laboratory resultsAbnormal [facility] SystemIONIZED CALCIUMon 09-30-2024 IONIZED CALCIUM - ICAN4.6 mg/dLNormal4.5-5.3PDayton Osteopathic HospitalComment on above:Performed By: #### ICA #### [facility] ([facility]) [address] [place] [address] VIRIonized calciumon 27-12-8396Rtobjia.ionized ISE [Moles/Vol] 4.6 mg/dL4.5 - 5.3 mg/dLWilson Street HospitalInterpretation and review of laboratory resultsPenn State Health Holy Spirit Medical CenterMAGNESIUM on [id number] [Mass/Vol]2.0 mg/dLNormal1.8-2.6[facility] Comment on above:Performed By: #### PINR #### [facility] ([facility]) [address] [place] [address] VIRMagnesiumon [id number] and review of laboratory resultsNormSheltering Arms HospitalMagnesium [Mass/Vol]2 mg/dL1.8 - 2.6 mg/dLWilson Street HospitalNo Panel Informationon [id number] Health AdministrationProcalcitoninon 33-29-0924Xqkpywpoyzjtyv and review of laboratory resultsAbnormSheltering Arms HospitalProcalcitonin IA [Mass/Vol]1.48 ng/mLB[facility] - 0.05 ng/mLWilson [address] Hospital<0.50 ng/mL - Low risk of severe sepsis and/or septic shock. <2.00 ng/mL - Recommend retesting within 6-24 hours. >2.00 ng/mL - High risk of sepsis and/or septic shock.[facility] Hospital - HarrisburgAPTEncompass Health Valley [facility] 94-45-1361pQZD Coag (PPP) [Time]31 [facility] HospitalInterpretation and review of laboratory resultsNormSheltering Arms HospitalaPTT Coag (Bld) [Time]31 jYoxzkm86-07JteKdserpCleveland Clinic [facility] Hospital Comment on above:Performed By: #### PTT #### [facility] (TT) [address] [place] [address] VIRaPTT Coag (Bld) [Time]33.6 pNsdfph33.8-34.8K[facility]tering Health MiamisburgComment on above:Result Comment: IV Heparin Therapy Range: 62.0-94.0Performed By: #### URC #### [id number] [place], [place] [id number] Surgery Scheduling Coordinator: Beto Farah MD [facility] [address] [place] [address] [place] [address] Surgery Scheduling Coordinator: Sae Naylor [id number] (P) [Moles/Vol]23 umol/L11 - 51 umol/LBon Black Hills Medical CenterAmmthompson falls (P) [Moles/Vol]23 umol/SUxkwoh93-07JudsyKettering Health MiamisburgComment on above:Performed By: #### UAMIC #### [facility] [address] [place] [address] [place] [address] Surgery Scheduling Coordinator: Wilver Calvillo MDBEDMIREYA GLUCOSEon [id number] [Mass/Vol]143 mg/qLVxni55-19WmyGznlmgCleveland Clinic Lutheran HospitalComment on above:Performed By: #### BEDG #### [facility] ([facility]) [address] [place] [address] [facility] *Place/Obtain serum glucose if >500 per glucometer.on [id number] [Mass/Vol]143 mg/mIWtmt49 - 99 mg/dLOhio Valley Hospital SystemInterpretation and review of laboratory resultsAbnormalProVeterans Health AdministrationProVeterans Health AdministrationBlood occult stool #1on [id number], Stool #1TIMEDBon Highland District HospitalHemoglobin.gastrointestinal spec 1 Ql (Stl) PositiveAbnormalNEGATIVETwin County Regional HealthcareInterpretation and review of laboratory resultsAbnormalBon Highland District HospitalTime, Stool #[id number] [facility] Hills Medical CenterCBC WITH AUTO DIFFERENTIALon [id number] form neutrophils/100 WBC (Bld)5 %NormalCleveland Clinic Lutheran HospitalComment on above:Result Comment: This is an appended report. These results have been appended to a previously preliminary verified report.Performed By: #### CBCA #### [facility] ([facility]) [address] [place] [address] VIRCELLAVISION ATYPICAL LYMPHOCYTES RELATIVE PERCENT BY MANUAL COUNT2 %NormalCleveland Clinic Lutheran HospitalComharbor beach community hospital on above:Result Comment: This is an appended report. These results have been appended to a previously preliminary verified report.Performed By: #### CBCA #### [facility] ([facility]) [address] [place] [address] VIRCELLAVISION ROSA CELLS IN BLOOD BY LIGHT MICROSCOPY1+Normal [facility] Lutheran HospitalComharbor beach community hospital on above:Result Comment: This is an appended report. These results have been appended to a previously preliminary verified report.Performed By: #### CBCA #### [facility] ([facility]) [address] [place] [address] VIRCELLAVISION DIFFERENTIAL TYPEMANUAL DIFFERENTIALNormal ProMSouthview Medical CenterComment on above:Result Comment: This is an appended report. These results have been appended to a previously preliminary verified report.Performed By: #### CBCA #### [facility] ([facility]) [address] [place] [address] VIRCELLAVISION ELLIPTOCYTES IN BLOOD BY LIGHT MICROSCOPY1+ NormalProTrihealth Bethesda Butler HospitalComharbor beach community hospital on above:Result Comment: This is an appended report. These results have been appended to a previously preliminary verified report.Performed By: #### CBCA #### [facility] ([facility]) [address] [place] [address] VIRCELLAVISION EOSINOPHILS ABSOLUTE COUNT (10*3/UL) BY MANUAL COUNT0.1 10*3/uLNormal0.0-0.4ProTrihealth Bethesda Butler HospitalComharbor beach community hospital on above:Result Comment: This is an appended report. These results have been appended to a previously preliminary verified report.Performed By: #### CBCA #### [facility] ([facility]) [address] [place] [address] VIRCELLAVISION EOSINOPHILS PERCENT BY MANUAL COUNT2 %Normal [facility] Luther[facility] HospitalComharbor beach community hospital on above:Result Comment: This is an appended report. These results have been appended to a previously preliminary verified report.Performed By: #### CBCA #### [facility] ([facility]) [address] [place] [address] VIRCELLAVISION LYMPHOCYTES ABSOLUTE COUNT (10*3/UL) BY MANUAL COUNT0.9 10*3/uLLow1.0-3.5PDayton Osteopathic HospitalComharbor beach community hospital on above:Result Comment: This is an appended report. These results have been appended to a previously preliminary verified report.Performed By: #### CBCA #### [facility] ([facility]) [address] [place] [address] VIRCELLAVISION LYMPHOCYTES RELATIVE PERCENT BY MANUAL COUNT19 % NormalProMedica Morley HospitalComment on above:Result Comment: This is an appended report. These results have been appended to a previously preliminary verified report.Performed By: #### CBCA #### [facility] ([facility]) [address] [place] [address] VIRCELLAVISION MONOCYTES ABSOLUTE COUNT (10*3/UL) IN BLOOD BY MANUAL COUNT0.3 10*3/uLNormal0.0-0.9ProMedica [facility]ley HospitalComment on above: Result Comment: This is an appended report. These results have been appended to a previously preliminary verified report.Performed By: #### CBCA #### [facility] ([facility]) [address] [place] [address] VIRCELLAVISION MONOCYTES RELATIVE PERCENT BY MANUAL COUNT8 % NormalProMedica Morley HospitalComment on above:Result Comment: This is an appended report. These results have been appended to a previously preliminary verified report.Performed By: #### CBCA #### [facility] ([facility]) [address] [place] [address] VIRCELLAVISION NEUTROPHILS ABSOLUTE COUNT BY MANUAL COUNT2.7 10*3/uLNormal1.5-6.6ProMedica [place]ley HospitalComment on above:Result Comment: This is an appended report. These results have been appended to a previously preliminary verified report.Performed By: #### CBCA #### [facility] ([facility]) [address] [place] [address] VIRCELLAVISION NEUTROPHILS RELATIVE PERCENT BY MANUAL COUNT64 % NormalProMedica Morley HospitalComment on above:Result Comment: This is an appended report. These results have been appended to a previously preliminary verified report.Performed By: #### CBCA #### [facility] ([facility]) [address] [place] [address] VIRErythrocyte distribution width (RBC) [Ratio]15.2 %High 11.5-15ProMedica [place] HospitalComment on above:Performed By: #### CBCA #### [facility] ([facility]) [address] [place] [address] VIRHematocrit (Bld) [Volume fraction]24.4 %Hge15-78TinWttspl [place] HospitalComment on above:Performed By: #### CBCA #### [facility] ([facility]) [address] [place] [address] VIRHemoglobin (Bld) [Mass/Vol]8.3 g/dLLow11.7-15.5ProMedica [place] HospitalComment on above:Performed By: #### CBCA #### [facility] ([facility]) [address] [place] [address] VIRMCH (RBC) [Entitic mass]29.7 tbNidhqb13-83PllGofwzs [place] HospitalComment on above:Performed By: #### CBCA #### [facility] ([facility]) [address] [place] [address] VIRMCHC (RBC) [Mass/Vol]34.0 g/pZMsewrx81-57SpzQpdvjw [place] HospitalComment on above:Performed By: #### CBCA #### [facility] ([facility]) [address] [place] [address] VIRMCV (RBC) [Entitic vol]87 lUFrmphk59-822ModCmkjob [place] HospitalComment on above:Performed By: #### CBCA #### [facility] ([facility]) [address] [place] [address] VIRPlatelet mean volume (Bld) [Entitic vol]9.8 fLNormal7-12 ProMedica [place] HospitalComment on above:Performed By: #### CBCA #### [facility] ([facility]) [address] [place] [address] VIRPlatelets (Bld) [#/Vol]61 10*3/gHXee896-001HkpJwygveTrihealth Bethesda Butler HospitalComment on above:Performed By: #### CBCA #### [facility] ([facility]) [address] [place] [address] VIRRBC COUNT2.79 X10E12/LLow3.8-5.2PDayton Osteopathic Hospital Comment on above:Performed By: #### CBCA #### [facility] ([facility]) [address] [place] [address] VIRWBC (Bld) [#/Vol]4.0 10*3/uLNormal4-11ProTrihealth Bethesda Butler HospitalComment on above:Performed By: #### CBCA #### [facility] ([facility]) [address] [place] [address] VIRCBC auto differentialon 03-87-1624Bbbh form neutrophils/100 WBC (Bld)5 %[facility] HospitalComment on above:This is an appended report. These results have been appended to a previously preliminary verified report. [place] cells LM Ql (Bld)1+[address] HospitalComment on above:This is an appended report. These results have been appended to a previously preliminary verified report.Differential cell count method Nom (Bld)MANUAL DIFFERENTIAL [facility] HospitalComment on above:This is an appended report. These results have been appended to a previously preliminary verified report. Elliptocytes LM Ql (Bld)1+[facility] [address] HospitalComment on above:This is an appended report. These results have been appended to a previously preliminary verified report.Eosinophils (Bld) [#/Vol]0.1 10*3/uL0.0 - 0.4 10*3/uLWilson Street HospitalComment on above:This is an appended report. These results have been appended to a previously preliminary verified report.Eosinophils/100 WBC (Bld)2 %[address] HospitalComment on above:This is an appended report. These results have been appended to a previously preliminary verified report. Erythrocyte distribution width (RBC) [Ratio]15.2 %High11.5 - 15 %[address] HospitalHematocrit (Bld) [Volume fraction]24.4 %Low35 - 47 %[address] HospitalHemoglobin (Bld) [Mass/Vol]8.3 g/dLLow11.7 - 15.5 g/dLWilson Street HospitalInterpretation and review of laboratory resultsAbnormalWilson Street HospitalLymphocytes (Bld) [#/Vol]0.9 10*3/uLLow1.0 - 3.5 10*3/uLOhio Valley Hospital SystemComment on above:This is an appended report. These results have been appended to a previously preliminary verified report.MCH (RBC) [Entitic mass]29.7 pg27 - 34 [facility] HospitalMCHC (RBC) [Mass/Vol]34 g/dL32 - 36 g/dLWilson Street HospitalMCV (RBC) [Entitic vol]87 fL80 - 100 [facility] HospitalMonocytes (Bld) [#/Vol]0.3 10*3/uL0.0 - 0.9 10*3/uLWilson [address] HospitalComment on above:This is an appended report. These results have been appended to a previously preliminary verified report.Monocytes/100 WBC (Bld)8 % [address] HospitalComment on above:This is an appended report. These results have been appended to a previously preliminary verified report. Neutrophils (Bld) [#/Vol]2.7 10*3/uL1.5 - 6.6 10*3/uLOhio Valley Hospital System Comment on above:This is an appended report. These results have been appended to a previously preliminary verified report.Neutrophils/100 WBC (Bld)64 %[address] HospitalComment on above:This is an appended report. These results have been appended to a previously preliminary verified report.Platelet mean volume (Bld) [Entitic vol]9.8 fL7 - 12 [facility] HospitalPlatelets (Bld) [#/Vol] 61 10*3/uLLowWilson Street HospitalRBC (Bld) [#/Vol]2.79 10*6/uLOhioHealth Southeastern Medical CenterVariant lymphocytes/100 WBC (Bld)19 %[address] HospitalComment on above:This is an appended report. These results have been appended to a previously preliminary verified report.Variant lymphocytes/100 WBC (Bld)2 % [address] HospitalComharbor beach community hospital on above:This is an appended report. These results have been appended to a previously preliminary verified report.WBC LM Ql (Sput)4ProVeterans Health AdministrationProThe Bellevue Hospital SystemBasophils (Bld) [#/Vol]0 10*3/uLBon Secours Dunlap Memorial HospitalBasophils/100 WBC (Bld)0 %0 - 2 %Bon SecNorwalk Memorial HospitalEosinophils (Bld) [#/Vol]0 10*3/uLBon Secours Dunlap Memorial Hospital Eosinophils/100 WBC (Bld)0 %Low1 - 4 %[facility] SecNorwalk Memorial HospitalErythrocyte distribution width (RBC) [Ratio]14.3 %11.8 - 14.4 %[facility] Hematocrit (Bld) [Volume fraction]21.7 %Low36.3 - 47.1 %[facility] Hemoglobin (Bld) [Mass/Vol]6.8 g/dLCritically low11.9 - 15.1 g/dLBon SecNorwalk Memorial HospitalImmature granulocytes (Bld) [#/Vol]0 10*3/uLBon Secours Dunlap Memorial Hospital Immature granulocytes/100 WBC (Bld)0 %0[facility] HospitalInterpretation and review of laboratory resultsAbnormalBon Secours Dunlap Memorial HospitalLymphocytes/100 WBC (Bld)13 %Low24 - 43 %Bon [facility] HospitalLymphocytes/100 WBC (Bld)0.95 % LowBon Secours Wright-Patterson Medical CenterH (RBC) [Entitic mass]29.8 pg25.2 - 33.5 pgBon Secours Wright-Patterson Medical CenterHC (RBC) [Mass/Vol]31.3 g/dL28.4 - 34.8 g/dLBon Secours Wright-Patterson Medical CenterV (RBC) [Entitic vol]95.2 fL82.6 - 102.9 fLBon Secours Dunlap Memorial HospitalMonocytes/100 WBC (Bld)12 %3 - 12 %[facility] HospitalMonocytes/100 WBC (Bld)0.88 %[facility] Memorial HospitalMorphology Padilla (Bld) [Interp]Platelet scan shows Decreased PlateletsTwin County Regional HealthcareNeutrophils/100 WBC (Bld) 75 %High36 - 65 %[facility] HealthcareNucleated RBC/100 WBC (Bld) [Ratio]0 % 0.0 per 100 WBCBon [facility] HealthPlatelet, Qsnaljojsmba30WspQyv [facility] HealthPlatelets (Bld) [#/Vol]See Reflexed IPF ResultBon Highland District HospitalPlatelets reticulated/100 platelets Auto (Bld)3.7 %1.1 - 10.3 %[facility] Regional HealthcareRBC (Bld) [#/Vol]2.28 10*6/uLLow3.95 - 5.11 m/uLTwin County Regional HealthcareSegmented neutrophils/100 WBC (Bld)5.47 %[facility] Regional HealthcareWBC other (Bld) [#/Vol]7.3Bon SecNorwalk Memorial HospitalBon Highland District HospitalCBC with Diffon [id number]. Basophil0.00 k/uLNormal0.00-0.20[facility] Health MiamisburgComment on above:Performed By: #### URC #### [employer] [facility] [place] [address] Surgery Scheduling Coordinator: Beto Farah MD [facility] [address] [place] [address] [place] [phone] Surgery Scheduling Coordinator: Farrah Naylor.Imm.Granulocyte0.00 k/uLNormal0.00-0.30[facility] MiamisburgComment on above:Performed By: #### URC #### [employer] [address] [place] [id number] Surgery Scheduling Coordinator: Beto Farah MD [facility] [address] [place] [address] [place] [phone] Surgery Scheduling Coordinator: Farrah Naylor.Neutrophil (Seg)5.47 k/uLNormal1.50-8.10[facility] MiamisburgComment on above:Performed By: #### URC #### [facility] [address] [place] [address] Surgery Scheduling Coordinator: Beto Farah MD [address] [place] [address] Surgery Scheduling Coordinator: Wilver Calvillo MDBasophils/100 WBC (Bld)0 %Normal0-2[facility] HospitalComment on above:Performed By: #### URC #### [address] [address] Surgery Scheduling Coordinator: Beto Farah MD [address] [place] [id number] Surgery Scheduling Coordinator: Wilver Calvillo MDEosinophils (Bld) [#/Vol]0.00 10*3/uLNormal 0.00-0.44[facility] Raymond[facility] HospitalComment on above:Performed By: #### URC #### [address] [address] Surgery Scheduling Coordinator: Beto Farah MD [address] [place] [phone] Surgery Scheduling Coordinator: Wilver Calvillo MDEosinophils/100 WBC (Bld)0 %Low1-4[facility] Campuscy Hospital For Special CareComment on above:Performed By: #### URC #### [address] [address] Surgery Scheduling Coordinator: Beto Farah MD [address] [place], [place] [id number] Surgery Scheduling Coordinator: Wilver Calvillo MDImmature granulocytes/100 WBC (Bld)0 %Jnmimh6OokonKettering Health MiamisburgComment on above:Performed By: #### URC #### [facility] [address] [place] [address] Surgery Scheduling Coordinator: Beto Farah MD [address] [place], [facility]83 Surgery Scheduling Coordinator: Wilver Calvillo MDLymphocytes (Bld) [#/Vol]0.95 10*3/uLLow1.10-3.70 [facility] MiamisburgComment on above:Performed By: #### URC #### [facility] [address] [place] [address] Surgery Scheduling Coordinator: Beto Farah MD [address] [place] [address] Surgery Scheduling Coordinator: Wilver Calvillo MDLymphocytes/100 WBC (Bld)13 %Sdy87-54Ayyql [facility]iffin HospitalComment on above:Performed By: #### URC #### [facility] [address] [place] [address] Surgery Scheduling Coordinator: Beto Farah MD [address] [place] [address] Surgery Scheduling Coordinator: NADEEM Nayloronocytes (Bld) [#/Vol]0.88 10*3/uLNormal0.10-1.20 [facility] MiamisburgComment on above:Performed By: #### URC #### [facility] [address] [place] [address] Surgery Scheduling Coordinator: Beto Farah MD [address] [place] [address] Surgery Scheduling Coordinator: NADEEM Nayloronocytes/100 WBC (Bld)12 %Normal3-12[facility] MiamisburgComment on above:Performed By: #### URC #### [facility] [address] [place] [address] Surgery Scheduling Coordinator: Beto Farah MD [address] [place] [address] Surgery Scheduling Coordinator: NADEEM Naylororphology Padilla (Bld) [Interp]Platelet scan shows Decreased PlateletsNormalEast Ohio Regional Hospital HospitalComment on above:Performed By: #### URC #### [facility] [address] [place] [address] Surgery Scheduling Coordinator: Beto Farah MD [address] [place], [place] [id number] Surgery Scheduling Coordinator: Wilver Calvillo MDNeutrophil (Seg)75 %Auvf94-07LfvzyKettering Health Miamisburg Comment on above:Performed By: #### URC #### [facility] [address] [place] [address] Surgery Scheduling Coordinator: Beto Farah MD [address] [place] [id number] Surgery Scheduling Coordinator: Wilver Calvillo MDErythrocyte distribution width (RBC) [Ratio]14.3 % Pdqbuo89.8-14.4[facility] Health MiamisburgComment on above:Performed By: #### URC #### [facility] [address] [place] [address] Surgery Scheduling Coordinator: Beto Farah MD [address] [place] [phone] Surgery Scheduling Coordinator: Wilver Calvillo MDHematocrit (Bld) [Volume fraction]21.7 %Low 36.3-47.1MSt. Elizabeth Hospital HospitalComment on above:Performed By: #### URC #### [facility] [address] [place] [address] Surgery Scheduling Coordinator: Beto Farah MD [address] [place] [phone] Surgery Scheduling Coordinator: Wilver Calvillo MDHemoglobin (Bld) [Mass/Vol]6.8 g/dLCritically low 11.9-15.1MNorwalk Memorial HospitalComment on above:Performed By: #### URC #### [facility] [address] [place] [address] Surgery Scheduling Coordinator: Beto Farah MD [address] [place] [facility]83 Surgery Scheduling Coordinator: NADEEM NaylorCH (RBC) [Entitic mass]29.8 xpDqpscd82.2-33.5 [facility] MiamisburgComment on above:Performed By: #### URC #### [facility] [address] [place] [address] Surgery Scheduling Coordinator: Beto Farah MD [address] [place] [phone] Surgery Scheduling Coordinator: EDELMIRA NaylorC (RBC) [Mass/Vol]31.3 g/aSFiqywh58.4-34.8[facility] MiamisburgComment on above:Performed By: #### URC #### [place] [address] [place] [address] Surgery Scheduling Coordinator: Beto Farah MD [address] [place] [address] Surgery Scheduling Coordinator: NADEEM NaylorCV (RBC) [Entitic vol]95.2 hPMcqoij82.6-102.9 [facility] MiamisburgComment on above:Performed By: #### URC #### [facility] [address] [place] [address] Surgery Scheduling Coordinator: Beto Farah MD [address] [place] [phone] Surgery Scheduling Coordinator: Wilver Calvillo MDNRBC Automated0.0 per 100 WBCNormal0.0[facility] MiamisburgComment on above:Performed By: #### URC #### [facility] [address] [place] [address] Surgery Scheduling Coordinator: Beto Farah MD [address] [place] [address] Surgery Scheduling Coordinator: Wilfrid Naylortelet CountSee Reflexed IPF [id number] [facility] MiamisburgComment on above:Performed By: #### URC #### [facility] [address] [place] [address] Surgery Scheduling Coordinator: Beto Farah MD [address] [place] [address] Surgery Scheduling Coordinator: Oni Naylor Fluoresc.91 k/hBYxz098-947XtapuKettering Health MiamisburgComment on above:Performed By: #### URC #### [facility] [address] [place] [address] Surgery Scheduling Coordinator: Beto Farah MD [address] [place] [address] Surgery Scheduling Coordinator: ANTONY Naylor Immature Fract.3.7 %Normal1.1-10.3MSt. Elizabeth Hospital HospitalComment on above:Performed By: #### URC #### [facility] [address] [place] [address] Surgery Scheduling Coordinator: Beto Farah MD [address] [place] [address] Surgery Scheduling Coordinator: NEY Naylor (Bld) [#/Vol]2.28 10*6/uLLow3.95-5.11[facility] MiamisburgComment on above:Performed By: #### URC #### [facility] [address] [place] [address] Surgery Scheduling Coordinator: Beto Farah MD [address] [place] [address] Surgery Scheduling Coordinator: SARAH Naylor (Bld) [#/Vol]7.3 10*3/uLNormal3.5-11.3MNorwalk Memorial HospitalComment on above:Performed By: #### URC #### [facility] [address] [place] [address] Surgery Scheduling Coordinator: Beto Farah MD [address] [place] [address] Surgery Scheduling Coordinator: Wilver Calvillo, [facility] – TALIHINAOMPWVUMEDICINE HARRISON COMMUNITY HOSPITALENSIVE METABOLIC PANELon 93-48-9561Xbjrcdo [Mass/Vol]2.7 g/dLLow3.2-5.3ProMedUniversity Hospitals Conneaut Medical Center HospitalComment on above:Performed By: #### CMP #### [facility] ([facility]) [address] [place] [address] VIRALP [Catalytic activity/Vol]121 U/WXbhsro65-657TnfRhsbdx [place] HospitalComment on above:Performed By: #### CMP #### [facility] ([facility]) [address] [place] [address] VIRALT [Catalytic activity/Vol]39 U/LHigh<=31PKettering Health Dayton HospitalComment on above:Performed By: #### CMP #### [facility] ([facility]) [address] [place] [address] VIRAnion gap [Moles/Vol]10 mmol/LNormal5-15ProKettering Health Washington Township HospitalComment on above:Performed By: #### CMP #### [facility] ([facility]) [address] [place] [address] VIRAST [Catalytic activity/Vol]40 U/LNormal<=41ProKettering Health Washington Township HospitalComment on above:Performed By: #### CMP #### [facility] ([facility]) [address] [place] [address] VIRBilirubin [Mass/Vol]0.9 mg/dLNormal0.3-1.2PKettering Health Dayton HospitalComment on above:Performed By: #### CMP #### [facility] ([facility]) [address] [place] [address] VIRCalcium [Mass/Vol]7.2 mg/dLLow8.5-10.5PKettering Health Dayton HospitalComment on above:Performed By: #### CMP #### [facility] ([facility]) [address] [place] [address] VIRChloride [Moles/Vol]120 mmol/KLpmu84-747ItiWuewsvTrihealth Bethesda Butler HospitalComment on above:Performed By: #### CMP #### [facility] ([facility]) [address] [place] [address] VIRCO2 [Moles/Vol]16 mmol/MQik50-85AraSmklzhKindred Hospital Lima Comment on above:Performed By: #### CMP #### [facility] ([facility]) [address] [place] [address] VIRCreatinine [Mass/Vol]1.54 mg/dLHigh0.40-1.00ProTrihealth Bethesda Butler HospitalComment on above:Result Comment: METHOD TRACEABLE TO IDMS STANDARD Performed By: #### CMP #### [facility] ([facility]) [address] [place] [address] VIRGFR/1.73 sq M.predicted among non-blacks MDRD (S/P/Bld) [Vol rate/Area]35 mL/min/{1.73_m2}Low>=60ProTrihealth Bethesda Butler HospitalComment on above: Result Comment: Reported eGFR is based on the CKD-EPI 2020 equation that does not use a race coefficient.Performed By: #### CMP #### [facility] ([facility]) [address] [place] [address] VIRGlucose [Mass/Vol]119 mg/bPGmrj80-25CwsXdczzqTrihealth Bethesda Butler HospitalComment on above:Performed By: #### CMP #### [facility] ([facility]) [address] [place] [address] VIRPotassium [Moles/Vol]4.0 mmol/LNormal3.5-5.0ProTrihealth Bethesda Butler HospitalComment on above:Performed By: #### CMP #### [facility] ([facility]) [address] [place] [address] VIRProtein [Mass/Vol]4.7 g/dLLow6.0-8.0ProKettering Health Washington Township HospitalComment on above:Performed By: #### CMP #### [facility] ([facility]) [address] [place] [address] VIRSodium [Moles/Vol]146 mmol/FGkypex058-990OapYifiqc Toledo HospitalComment on above:Performed By: #### CMP #### [facility] ([facility]) [address] [place] [address] VIRUrea nitrogen [Mass/Vol]48 mg/dLHigh5-27ProMediVeterans Health Administration HospitalComment on above:Performed By: #### CMP #### [facility] ([facility]) [address] [place] [address] VIRComp Metabolic Pr/rfx MGon 26-22-1270Sjmrnjw [Mass/Vol]3.3 g/dLLow3.5-5.2Mercy Raymondville HospitalComment on above:Performed By: #### UAMIC #### [facility] [address] [place] [address] Dr[address] [place], [place] 405[address]83 Surgery Scheduling Coordinator: Wilver Calvillo MDAlbumin/Glob Ratio1.6Wphdls7.0-2.5Kettering Health MiamisburgComment on above:Performed By: #### UAMIC #### [address] [place], [place] 2689483 Surgery Scheduling Coordinator: Baldemar Naylorkaline Nibe233 U/FFjyk97-102JtuqnKettering Health MiamisburgComment on above:Performed By: #### UAMIC #### [address] [place], [place] 9489883 Surgery Scheduling Coordinator: Wilver Calvillo MDALT [Catalytic activity/Vol]71 U/YRwxb39-76QlcpgKettering Health MiamisburgComment on above:Performed By: #### UAMIC #### [address] [place], [place] 5389683 Surgery Scheduling Coordinator: Wilver Calvillo MDAnimook gap [Moles/Vol]13 mmol/LNormal9-16K[facility]tering Health MiamisburgComment on above:Performed By: #### UAMIC #### [facility] [address] [place] [address] [place] [address] Surgery Scheduling Coordinator: Wilver Calvillo MDAST [Catalytic activity/Vol]83 U/OPwpi21-90ItlhuKettering Health MiamisburgComment on above:Performed By: #### UAMIC #### [facility] [address] [place] [address] Dr[address] [place], [place] 1660283 Surgery Scheduling Coordinator: Wilver Calvillo MDBilirubin [Mass/Vol]0.9 mg/dLNormal0.00-1.20K[facility] Health MiamisburgComment on above:Performed By: #### UAMIC #### [address] [place], [place] 3623483 Surgery Scheduling Coordinator: Wilver Calvillo MDBUN/CRE Fsmac24Jedf2-21CusfwKettering Health Miamisburg Comment on above:Performed By: #### UAMIC #### [address] [place], [place] 5[address]83 Surgery Scheduling Coordinator: NATHAN Nayloralcium [Mass/Vol]8.3 mg/dLLow8.6-10.4K[facility]tering Health MiamisburgComment on above:Performed By: #### UAMIC #### [address] [place] [address] Surgery Scheduling Coordinator: NATHAN Naylorhloride [Moles/Vol]109 mmol/BFkeb31-535Pmnkn Tiffin HospitalComment on above:Performed By: #### UAMIC #### [facility] [address] [place] [address] Dr. [place], [place] 2899283 Surgery Scheduling Coordinator: NATHAN NaylorO2 [Moles/Vol]17 mmol/GWwg43-59RwzmeKettering Health MiamisburgComment on above:Performed By: #### UAMIC #### [facility] [address] [place] [address] Dr[address] [place], [place] 3948483 Surgery Scheduling Coordinator: Wilver Sturtz, MDCreatinine [Mass/Vol]1.8 mg/dLHigh0.50-0.90K[facility]tering Health MiamisburgComment on above:Performed By: #### UAMIC #### [address] [place] [address] Surgery Scheduling Coordinator: Wilver Calvillo MDGFR/1.73 sq M.predicted among non-blacks MDRD (S/P/Bld) [Vol rate/Area]29 mL/min/{1.73_m2}Low>60MerUniversity of Connecticut Health Center/John Dempsey HospitalComment on above:Result Comment: These results are not intended for [...] or following therapy that affects renal tubular secretion.Performed By: #### UAMIC #### [address] [place] [address] Surgery Scheduling Coordinator: Wilver Calvillo MDGlucose [Mass/Vol]171 mg/oVAudm01-97Qityf Hospital For Special CareComment on above:Performed By: #### UAMIC #### [address] [place], [place] 3[address] Surgery Scheduling Coordinator: LORI Naylorotassium [Moles/Vol]4.8 mmol/LNormal3.7-5.3MNorwalk Memorial HospitalComment on above:Performed By: #### UAMIC #### [address] [place] [address] Surgery Scheduling Coordinator: Wilver Calvillo MDProtein [Mass/Vol]5.7 g/dLLow6.6-8.7K[facility]tering Health MiamisburgComment on above:Performed By: #### UAMIC #### [address] [place] [address] Surgery Scheduling Coordinator: MORIS Naylorodium [Moles/Vol]139 mmol/BKgypzg994-238YjeelKettering Health MiamisburgComment on above:Performed By: #### UAMIC #### [facility] [address] [place] [address] Surgery Scheduling Coordinator: Wilver Calvillo MDUrea nitrogen [Mass/Vol]54 mg/dLHigh8-23K[facility]tering Health MiamisburgComment on above:Performed By: #### UAMIC #### [facility] [address] [place] [address] Surgery Scheduling Coordinator: NATHAN Nayloromprehensive Metabolic Panel w/ Reflex to MGon 17-78-6868Bczazaz [Mass/Vol]3.3 g/dLLow3.5 - 5.2 g/dLBon [facility] Albumin/Globulin [Mass ratio]1.3 {ratio}1.0 - 2.5Bon SecOchsner Medical Center HealthALP [Catalytic activity/Vol]181 U/LHigh35 - 104 U/LBon [facility] HospitalALT [Catalytic activity/Vol]71 U/LHigh10 - 35 U/LBon SecNorwalk Memorial HospitalAnion gap [Moles/Vol]13 mmol/L9 - 16 mmol/LBon [facility] HealthAST [Catalytic activity/Vol]83 U/LHigh10 - 35 U/LBon [facility] HospitalBilirubin [Mass/Vol] 0.9 mg/dL0.00 - 1.20 mg/dLBon [facility] HospitalCalcium [Mass/Vol]8.3 mg/dLLow 8.6 - 10.4 mg/dLBon [facility] HospitalChloride [Moles/Vol]109 mmol/LHigh98 - 107 mmol/LBon [facility] HospitalCO2 [Moles/Vol]17 mmol/LLow20 - 31 mmol/LBon [facility] HospitalCreatinine [Mass/Vol]1.8 mg/dLHigh0.50 - 0.90 mg/dLBon [facility] HospitalEst, Glom Filt Urzc42Qoq- PINFBon [facility] Comment on above: These results are not [...] therapy that affects renal tubular secretion. Glucose [Mass/Vol]171 mg/oVKyfe47 - 99 mg/dLBon [facility] Interpretation and review of laboratory resultsAbnormalTwin County Regional Healthcare Potassium [Moles/Vol]4.8 mmol/L3.7 - 5.3 mmol/LBon [facility] HospitalProtein [Mass/Vol]5.7 g/dLLow6.6 - 8.7 g/dLBon [facility] HospitalSodium [Moles/Vol]139 mmol/L136 - 145 mmol/LBon [facility] HospitalUrea nitrogen [Mass/Vol]54 mg/dL High8 - 23 mg/dLBon [facility] HospitalUrea nitrogen/Creatinine [Mass ratio]30 mg/mgHigh9 - 20Bon [facility] CenterComprehensive metabolic panelon 52-71-1226Iexirdi [Mass/Vol]2.7 g/dLLow3.2 - 5.3 g/dLProMedica Health SystemALP [Catalytic activity/Vol]121 U/L39 - 130 U/LProMedcarraway methodist medical center Health SystemALT No additional P-5'-P [Catalytic activity/Vol]39 U/LHighNINF - 31 U/L ProMedica Health SystemAnion gap [Moles/Vol]10 mmol/L5 - 15 mmol/LProMedcarraway methodist medical center Health SystemAST [Catalytic activity/Vol]40 U/LNINF - 41 U/LProMedica Health SystemBilirubin [Mass/Vol]0.9 mg/dL0.3 - 1.2 mg/dLProMedica Lakehealth [facility] SystemCalcium [Mass/Vol]7.2 mg/dLLow8.5 - 10.5 mg/dLProMedica Lakehealth [facility] SystemChloride [Moles/Vol]120 mmol/LHigh98 - 109 mmol/[facility] Continue[facility] Hospital at PinevilleoMedcarraway methodist medical center Health SystemCO2 [Moles/Vol]16 mmol/LLow22 - 32 mmol/[facility] SystemCreatinine [Mass/Vol]1.54 mg/dL High0.40 - 1.00 mg/dLWilson Street HospitalComment on above:METHOD TRACEABLE TO IDMS STANDARDEGFR Non-Race Alxibpisl15Spa- PINCarondelet HealthComment on above:Reported eGFR is based on the CKD-EPI 2020 equation that does not use a race coefficient. Glucose [Mass/Vol]119 mg/xWFadi97 - 99 mg/dLWilson [address] Hospital Interpretation and review of laboratory resultsAbnormalProThe [facility] System Potassium [Moles/Vol]4 mmol/L3.5 - 5.0 mmol/LProMedcarraway methodist medical center Health SystemProtein [Mass/Vol]4.7 g/dLLow6.0 - 8.0 g/dLAtrium Health Unionodium [Moles/Vol]146 mmol/L134 - 146 mmol/LPrCrystal Clinic Orthopedic Center SystemUrea nitrogen [Mass/Vol]48 mg/dL High5 - 27 mg/dLMemorial Medical Center SystemEKG 12 Leadon 69-09-6598Bzpqpi Jmwl71ERGLdo Secours Mercy HealthP Tvvi68mrkkwvmUhh Secours Mercy HealthP-R Lbayjjnj96 msBon Secours Mercy HealthQ-T Dxaegcnn575 msBon Secours Mercy HealthQRS Jmvfmhdi47 msBon Secours Mercy HealthQTc Calculation (Bazett)405 msBon Secours Mercy HealthR Guki54eciohwbDdx Secours Mercy HealthT Psrt31izgjaqfAez Secours Mercy HealthVentricular Xrys99KXBEaq Secours Laricina Energyy Health Consider ACUTE CORONARY SYNDROME (ACS) Sinus bradycardia with short IA with Premature atrial complexes Nonspecific ST abnormality ECG interpretation of ACS is based on presence of symptoms and ST depression in Anterolateral leads Abnormal ECG When compared with ECG of 28-Sep-2024 14:51, Premature atrial complexes are now Present IA interval has decreased Nonspecific T wave abnormality no longer evident in Anterior leads Confirmed by John Galindo ([id number]) on 09/29/2024 8:23:04 AMPN [facility] HospitalJohn kunz MD - 09/29/2024 Consider ACUTE CORONARY SYNDROME (ACS) Sinus bradycardia with short IA with Premature atrial complexes Nonspecific ST abnormality ECG interpretation of ACS is based on presence of symptoms and ST depression in Anterolateral leads Abnormal ECG When compared with ECG of 28-Sep-2024 14:51, Premature atrial complexes are now Present IA interval has decreased Nonspecific T wave abnormality no longer evident in Anterior leads Confirmed by John Galindo ([id number]) on 09/29/2024 8:23:04 AM [facility] QlibriNormal sinus rhythm Possible Left atrial enlargement Nonspecific ST and T wave abnormality Abnormal ECG When compared with ECG of 23-Jul-2021 09:50, QT has lengthened Confirmed by John Galindo ([id number]) on 09/29/2024 8:21:59 AMEmanuel Medical CenterJohn kunz MD - 09/29/2024 Normal sinus rhythm Possible Left atrial enlargement Nonspecific ST and T wave abnormality Abnormal ECG When compared with ECG of 23-Jul-2021 09:50, QT has lengthened Confirmed by John Galindo ([id number]) on 09/29/2024 8:21:59 AM [facility] eBayEK 12 LeadOrdered By: John Galindo on 21-49-9561Giuyyy Amqp87AWDBnaTeamly Work Phone: P Inel43ftmqoxmEhgAXS-One Work Phone: P-R Ubdoveji913 [facility] [employer] Work Phone: [phone]-T Qprvhebd881 [facility] [employer] Work Phone: QRS Mjxlimdw09 [facility] [employer] Work Phone: [phone] Calculation (Bacarmitatt)454 [facility] [employer] Work Phone: [phone] Dmuv31mjpereoWwi [employer] Work Phone: T Xxiw12jjzxjtmGjy [employer] Work Phone: [phone] Gbnv07VUNBau eBay Work Phone: [phone] [employer] Work Phone: EKG Rhythm Stripon 85-26-5660OOYQWFroedtert Kenosha Medical Center HOSPITAL LABAdena Health System LABTwin County Regional HealthcareGlucose, Whole Bloodon 36-42-4021Jxnrvfs [Mass/Vol]178 mg/bYMqsy83 - 100 mg/dLBon [facility] HospitalInterpretation and review of laboratory resultsAbnoSanford Vermillion Medical CenterGlucose [Mass/Vol]178 mg/sSUnvt15-725TwdejKettering Health MiamisburgHemoglobin and Hematocriton 68-37-7450Vpnmoesqge (Bld) [Volume fraction]27.3 %Low36.3 - 47.1 %Bon [facility] HospitalHemoglobin (Bld) [Mass/Vol]8.9 g/dLLow11.9 - 15.1 g/dLBon [facility] HospitalInterpretation and review of laboratory resultsAbnoSanford Vermillion Medical CenterHematocrit (Bld) [Volume fraction]23.5 %Low36.3 - 47.1 %T[facility] County Regional HealthcareHemoglobin (Bld) [Mass/Vol]7.7 g/dLLow11.9 - 15.1 g/dLBon [facility] HospitalInterpretation and review of laboratory resultsAbnoSanford Vermillion Medical CenterHgb/Hcton 24-89-4960Skohdvhadx (Bld) [Volume fraction]27.3 %Low36.3-47.1MNorwalk Memorial HospitalComment on above:Performed By: #### UAMIC #### [address] [place] [address] Surgery Scheduling Coordinator: Wilver Calvillo MDHemoglobin (Bld) [Mass/Vol]8.9 g/dLLow11.9-15.1 [facility] Health MiamisburgComment on above:Performed By: #### UAMIC #### [address] [place] [address] Surgery Scheduling Coordinator: Wilver Calvillo MDHematocrit (Bld) [Volume fraction]23.5 %Low 36.3-47.1MNorwalk Memorial HospitalComment on above:Performed By: #### UAMIC #### [facility] [address] [place] [address] Surgery Scheduling Coordinator: Wilver Calvillo MDHemoglobin (Bld) [Mass/Vol]7.7 g/dLLow11.9-15.1 [facility] MiamisburgComment on above:Performed By: #### UAMIC #### [facility] [address] [place] [place] [address] Surgery Scheduling Coordinator: Wilver Calvillo MDLACTATE W/ REFLEXon 28-04-1353VJVEDWX W/REFLEX0.7 mmol/LNormal0.4-2.0C[facility] Lutheran HospitalComment on above:Order Comment: Result did not trigger repeat Lactate, re-order if needed.Performed By: #### LACTS #### [facility] ([facility]) [address] [place] [address] VIRLactate w/ Reflexon 04-41-0919Hfyizsjrpdwvnv and review of laboratory resultsNormalOhio Valley Hospital SystemLactate (P iflippo) [Moles/Vol]0.7 mmol/L0.4 - 2.0 mmol/LProMedcarraway methodist medical center Health SystemResult did not trigger repeat Lactate, re-order if needed.[facility] SystemLactic Acidon 06-26-6367Fnktunvssdkewl and review of laboratory resultsAbnormalTwin County Regional HealthcareLactate (BldV) [Moles/Vol]2.4 mmol/LHigh0.5 - 2.2 mmol/LBon [facility] HealthLactate [Moles/Vol]2.4 mmol/LHigh0.5-2.2 [facility] MiamisburgComment on above:Performed By: #### UAMIC #### [facility] [address] [place] [place] [address] Surgery Scheduling Coordinator: MONTSERRAT Naylor Gallbladder Views W cholecystokinin and W radionuclide Ted 36-51-9534Htzhsfxrclqwxioj of the gallbladder taken out to 2 hours. The findings could represent either acute cholecystitis or chronic cholecystitis. No enterogastric bile reflux [facility] CONSOLIDATEDEXAMINATION: NUCLEAR MEDICINE HEPATOBILIARY SCINTIGRAPHY (HIDA SCAN). 09/29/2024 [...] seen. No enterogastric bile reflux is noted. [facility] Bonita Nieto MD - 09/29/2024 EXAMINATION: NUCLEAR MEDICINE HEPATOBILIARY [...] or chronic cholecystitis. No enterogastric bile reflux [facility] Hospitaliology Study observation (narrative)[facility] Gallbladder Views W cholecystokinin and W radionuclide IVOrdered By: Bonita Torres on 17-19-7988AojBon Secours St. [facility] Work Phone: nm HEPATOBILIARY SCAN W PHARMACOLOGICAL INTERVENTIONon 32-93-1341VA HEPATOBILIARY SCAN W PHARMACOLOGICAL INTERVENTIONEXAMINATION: NUCLEAR MEDICINE HEPATOBILIARY SCINTIGRAPHY (HIDA SCAN). 09/29/2024 [...] Signed by: Bonita Torres MD 09/29/24 Final resultNormalMerUniversity of Connecticut Health Center/John Dempsey HospitalNo Panel Informationon 09-29-2024 ProMedicNorthfield City Hospital SystemOccult Blood, Fecalon 21-18-8151Ikmmkv Blood 1Positive AbnormalNEGMercy Hospital For Special CareComment on above:Performed By: #### UAMIC #### [facility] [address] [place], [place] 8[address]83 Surgery Scheduling Coordinator: Eleuterio Naylor 1 [facility] Comment on above:Performed By: #### UAMIC #### [facility] [address] [place], [place] 1538083 Surgery Scheduling Coordinator: Eleuterio Naylor [address] [place] [address] Comment on above:Performed By: #### UAMIC #### [facility] [address] [place], [place] 4402283 Surgery Scheduling Coordinator: OLIVIA NaylorALCITONINon 83-73-5156PVAYHNFECVMEU1.48 ng/mL High<0.05ProMedica Adena Regional Medical CenterComment on above:Order Comment: <0.50 ng/mL - Low risk of severe sepsis and/or septic shock. <2.00 ng/mL - Recommend retesting within 6-24 hours. >2.00 ng/mL - High risk of sepsis and/or septic shock.Performed By: #### PCAL #### [facility] ([facility]) [address] [place] [address] VIRPROTIME AND INRon 59-33-1948TZW0.4High0.9-1.2PDayton Osteopathic HospitalComment on above:Performed By: #### PINR #### [facility] ([facility]) [address] [place] [address] VIRPT Coag (PPP) [Time]15.9 sHigh9.8-13.2PDayton Osteopathic HospitalComment on above:Performed By: #### PINR #### [facility] ([facility]) [address] [place] [address] VIRPTon 67-91-2391GML Coag (PPP) [Relative time]1.4 {INR}Normal [facility] Health MiamisburgComment on above:Result Comment: Therapeutic Range: Moderate Anticoagulant Intensity: INR = 2.0-3.0 High Anticoagulant Intensity: INR = 2.5-3.5Performed By: #### PTT, PT #### [facility] [address] [place] [address] [place] [address] Surgery Scheduling Coordinator: LORI NaylorT Coag (PPP) [Time]17.0 sHigh11.7-14.1MNorwalk Memorial HospitalComment on above:Performed By: #### PTT, PT #### [facility] [address] [place] [address] Surgery Scheduling Coordinator: LORI NaylorTT 88-01-0097vSLM Coag (Bld) [Time]33.6 [facility] CenterComharbor beach community hospital on above: IV Heparin Therapy Range: 62.0-94.0 [facility] Regional HealthcareProtime & INRon 25-58-0693YXP Coag (Platelet poor plasma or blood) [Relative time]1.4High0.9 - 1.2PLakeHealth TriPoint Medical CenterInterpretation and review of laboratory resultsAbAuburn Community HospitalPT Coag (PPP) [Time]15.9 [facility] HospitalProtime-INRon 32-49-9856BWA Coag (PPP) [Relative time]1.4 {INR}[facility] Regional HealthcareComharbor beach community hospital on above: Therapeutic Range: Moderate Anticoagulant Intensity: INR = 2.0-3.0 High Anticoagulant Intensity: INR = 2.5-3.5 Interpretation and review of laboratory resultsAbCarilion New [facility] PT Coag (PPP) [Time]17.0 [facility] REPEATED ABORHon 58-33-8461QQC_NOLHYXIadrqkIsdZnqgcw [place] City HospitalComment on above:Performed By: #### ABORHR #### [facility] ([facility]) [address] [place] [address] VIRRH_INTEPPositiveNormalProMedica Morley HospitalComment on above:Performed By: #### ABORHR #### [facility] ([facility]) [address] [place] [address] VIRTYPE AND SCREENon 67-55-9318NMM_ROYBDUKgvbmaAazSptlkh Toledo HospitalComment on above:Performed By: #### TSC #### [facility] ([facility]) [address] [address] VIRRH_INTEPPositiveNormalTogus VA Medical Center HospitalComment on above:Performed By: #### TSC #### [facility] ([facility]) [address] [place] [address] VIRType and screen(includes indirect jesenia)on 06-00-6667EBUM Wilson Street HospitalRh Nom (Bld)PositiveForbes HospitalAPTTon 21-64-9863nUFC Coag (Bld) [Time]31.8 iTamzke37.8-34.8[facility] HospitalComment on above:Result Comment: IV Heparin Therapy Range: 62.0-94.0Performed By: #### UR #### [facility] [employer] [address] [place], [place] [address] Surgery Scheduling Coordinator: Beto Farah MD [facility] [address] [place] [address] Surgery Scheduling Coordinator: Wilver Calvillo [facility] auto differentialon 04-63-9247Tiqbiurvc (Bld) [#/Vol]0 10*3/uLBon Secours Dunlap Memorial HospitalBasophils/100 WBC (Bld)0 %0 - 2 %[facility] Regional HealthcareEosinophils (Bld) [#/Vol]0.06 10*3/uLBon Secours Dunlap Memorial HospitalEosinophils/100 WBC (Bld)1 %1 - 4 %[facility] HealthcareErythrocyte distribution width (RBC) [Ratio]14 %11.8 - 14.4 %[facility] Hematocrit (Bld) [Volume fraction]25.2 %Low36.3 - 47.1 %[facility] Hemoglobin (Bld) [Mass/Vol]8.1 g/dLLow11.9 - 15.1 g/dLBon [facility] Immature granulocytes (Bld) [#/Vol]0 10*3/uLBon [facility] HospitalImmature granulocytes/100 WBC (Bld)0 %0Bon [facility] HospitalInterpretation and review of laboratory resultsAbnormalTwin County Regional HealthcareLymphocytes/100 WBC (Bld)11 %Low24 - 43 %[facility] HealthcareLymphocytes/100 WBC (Bld)0.63 %LowBon Trumbull Memorial HospitalH (RBC) [Entitic mass]29.8 pg25.2 - 33.5 pgBon Trumbull Memorial HospitalHC (RBC) [Mass/Vol]32.1 g/dL28.4 - 34.8 g/dLBon Trumbull Memorial HospitalV (RBC) [Entitic vol]92.6 fL82.6 - 102.9 fLTwin County Regional Healthcare Monocytes/100 WBC (Bld)4 %3 - 12 %[facility] HealthcareMonocytes/100 WBC (Bld)0.23 %[facility] Regional HealthcareMorphology Padilla (Bld) [Interp]ANISOCYTOSIS PRESENTTwin County Regional HealthcareMorphology Padilla (Bld) [Interp]Platelet scan shows Decreased PlateletsTwin County Regional HealthcareNeutrophils/100 WBC (Bld)84 %High36 - 65 %[facility] HealthcareNucleated RBC/100 WBC (Bld) [Ratio]0 %0.0 per 100 WBCTwin County Regional HealthcarePlatelet, Yoawiotbftkg27VonCjdTwin County Regional Healthcare Platelets (Bld) [#/Vol]See Reflexed IPF ResultBon [facility]land District HospitalPlatelets reticulated/100 platelets Auto (Bld)4.1 %1.1 - 10.3 %[facility] HealthcareRBC (Bld) [#/Vol]2.72 10*6/uLLow3.95 - 5.11 m/uLTwin County Regional HealthcareSegmented neutrophils/100 WBC (Bld)4.78 %[facility] HealthcareWBC other (Bld) [#/Vol] 5.7Bon SecAurora Sheboygan Memorial Medical CenterCBC with Diffon 09-28-2024 Abs. Basophil0.00 k/uLNormal0.0-0.2MSt. Elizabeth Hospital HospitalComment on above: Performed By: #### URC #### [address] [address] Surgery Scheduling Coordinator: Beto Farah MD [address] [place] [id number] Surgery Scheduling Coordinator: Farrah Naylor.Imm.Granulocyte0.00 k/uLNormal0.00-0.30[facility] HospitalComment on above:Performed By: #### URC #### [address] [address] Surgery Scheduling Coordinator: Beto Farah MD [address] [place] [address] Surgery Scheduling Coordinator: Farrah Naylor.Neutrophil (Seg)4.78 k/uLNormal1.50-8.10[facility] HospitalComment on above:Performed By: #### URC #### [address] [address] Surgery Scheduling Coordinator: Beto Farah MD [address] [place] [address] Surgery Scheduling Coordinator: Wilver Calvillo MDBasophils/100 WBC (Bld)0 %Normal0-2MSt. Elizabeth Hospital HospitalComment on above:Performed By: #### URC #### [address] [address] Surgery Scheduling Coordinator: Beto Farah MD [address] [place] [address] Surgery Scheduling Coordinator: Wilver Calvillo MDEosinophils (Bld) [#/Vol]0.06 10*3/uLNormal 0.00-0.44[facility] HospitalComment on above:Performed By: #### URC #### [address] [address] Surgery Scheduling Coordinator: Beto Farah MD [address] [place] [address] Surgery Scheduling Coordinator: Wilver Calvillo MDEosinophils/100 WBC (Bld)1 %Normal1-4K[facility]tering Health MiamisburgComment on above:Performed By: #### URC #### [facility] [address] [place] [address] Surgery Scheduling Coordinator: Beto Farah MD [address] [place] [address] Surgery Scheduling Coordinator: Wilver Calvillo MDImmature granulocytes/100 WBC (Bld)0 %Wsibfj3UinbxKettering Health MiamisburgComment on above:Performed By: #### URC #### [facility] [address] [place] [address] Surgery Scheduling Coordinator: Beto Farah MD [address] [place] [address] Surgery Scheduling Coordinator: Wilver Calvillo MDLymphocytes (Bld) [#/Vol]0.63 10*3/uLLow1.10-3.70 [facility] MiamisburgComment on above:Performed By: #### URC #### [facility] [address] [place] [address] Surgery Scheduling Coordinator: Beto Farah MD [address] [place] [address] Surgery Scheduling Coordinator: Wilver Calvillo MDLymphocytes/100 WBC (Bld)11 %Hoy46-26UgjvhKettering Health MiamisburgComment on above:Performed By: #### URC #### [facility] [address] [place] [address] Surgery Scheduling Coordinator: Beto Farah MD [address] [place] [address] Surgery Scheduling Coordinator: NADEEM Nayloronocytes (Bld) [#/Vol]0.23 10*3/uLNormal0.10-1.20 [facility] MiamisburgComment on above:Performed By: #### URC #### [facility] [address] [place] [address] Surgery Scheduling Coordinator: Beto Farah MD [facility] [address] [place] [address] Dr. [place], [place] [address]83 Surgery Scheduling Coordinator: NADEEM Nayloronocytes/100 WBC (Bld)4 %Normal3-12[facility] MiamisburgComment on above:Performed By: #### URC #### [address] [address] Surgery Scheduling Coordinator: Beto Farah MD [address] [place] [address] Surgery Scheduling Coordinator: NADEEM Naylororphology Padilla (Bld) [Interp]ANISOCYTOSISNormal [facility] MiamisburgComment on above:Result Comment: PRESENT Platelet scan shows Decreased PlateletsPerformed By: #### URC #### [address] [address] Surgery Scheduling Coordinator: Beto Farah MD [address] [place] [address]383 Surgery Scheduling Coordinator: Wilver Calvillo MDNeutrophil (Seg)84 %Znap25-38MctpqKettering Health Miamisburg Comment on above:Performed By: #### URC #### [facility] [address] [place] [address] Surgery Scheduling Coordinator: Beto Farah MD [address] [place], [place] 117[address]83 Surgery Scheduling Coordinator: Wilver Calvillo MDErythrocyte distribution width (RBC) [Ratio]14.0 % Xjlrob85.8-14.4[facility] MiamisburgComment on above:Performed By: #### URC #### [facility] [address] [place] [address] Surgery Scheduling Coordinator: Beto Farah MD [address] [place], [place] 223[address]83 Surgery Scheduling Coordinator: Wilver Calvillo MDHematocrit (Bld) [Volume fraction]25.2 %Low 36.3-47.1MNorwalk Memorial HospitalComment on above:Performed By: #### URC #### [address] [address] Surgery Scheduling Coordinator: Beto Farah MD [address] [place] [address]383 Surgery Scheduling Coordinator: Wilver Calvillo MDHemoglobin (Bld) [Mass/Vol]8.1 g/dLLow11.9-15.1 [facility] MiamisburgComment on above:Performed By: #### URC #### [address] [address] Surgery Scheduling Coordinator: Beto Farah MD [address] [place] [address]383 Surgery Scheduling Coordinator: NADEEM NaylorCH (RBC) [Entitic mass]29.8 veNswdne81.2-33.5 [facility] MiamisburgComment on above:Performed By: #### URC #### [address] [place] [address] Surgery Scheduling Coordinator: Beto Farah MD [address] [place] [address]383 Surgery Scheduling Coordinator: EDELMIRA NaylorC (RBC) [Mass/Vol]32.1 g/yCEvixbg68.4-34.8[facility] MiamisburgComment on above:Performed By: #### URC #### [address] [address] Surgery Scheduling Coordinator: Beto Farah MD [address] [place] [address]383 Surgery Scheduling Coordinator: NADEEM NaylorCV (RBC) [Entitic vol]92.6 rSXohiuq25.6-102.9 [facility] MiamisburgComment on above:Performed By: #### URC #### [facility] [address] [place] [address] Surgery Scheduling Coordinator: Beto Farah MD [facility] [address] [place] [address] Dr. [place], [place] 512[address]83 Surgery Scheduling Coordinator: Wilver Calvillo MDNRBC Automated0.0 per 100 WBCNormal0.0K[facility] Health MiamisburgComment on above:Performed By: #### URC #### [facility] [address] [place] [address] Surgery Scheduling Coordinator: Beto Farah MD [address] [place] [address] Surgery Scheduling Coordinator: Oni Naylor CountSee Reflexed IPF [id number] [facility] MiamisburgComment on above:Performed By: #### URC #### [facility] [address] [place] [address] Surgery Scheduling Coordinator: Beto Farah MD [address] [place], [facility]83 Surgery Scheduling Coordinator: Oni Naylor Fluoresc.92 k/lUPhc371-976NznzkKettering Health MiamisburgComment on above:Performed By: #### URC #### [facility] [address] [place] [address] Surgery Scheduling Coordinator: Beto Farah MD [facility] [address] [place] [address] Dr. [place], [place] 057[address]83 Surgery Scheduling Coordinator: ANTONY Naylor Immature Fract.4.1 %Normal1.1-10.3MNorwalk Memorial HospitalComment on above:Performed By: #### URC #### [facility] [address] [place] [address] Surgery Scheduling Coordinator: Beto Farah MD [address] [place], [place] 7132483 Surgery Scheduling Coordinator: NEY Naylor (Blparvin) [#/Vol]2.72 10*6/uLLow3.95-5.11K[facility] MiamisburgComment on above:Performed By: #### URC #### [facility] [address] [place], [place] 2423808 Surgery Scheduling Coordinator: Beto Farah MD [address] [place], [place] 01111[address] Surgery Scheduling Coordinator: SARAH Naylor (Bld) [#/Vol]5.7 10*3/uLNormal3.5-11.3MercDanbury HospitalComment on above:Performed By: #### URC #### [facility] [address] [place], [place] 0128[address] Surgery Scheduling Coordinator: Beto Farah MD [address] [place], [place] 0048[address] Surgery Scheduling Coordinator: KAREEM NaylorA CHEST ABDOMEN PELVIS W CONTRASTon 09-28-2024 CTA CHEST ABDOMEN PELVIS W CONTRASTEXAMINATION: CTA OF THE CHEST, ABDOMEN AND PELVIS [...] Signed by: Rylie Jackson MD 09/28/24 Final resultNormalMercy Danbury Hospital Chest vessels and Abdominal vessels and Pelvis vessels W contrast Ted . No aortic aneurysm or dissection. There is [...] airways disease. 5. Colonic diverticulosis. MHPN RIS CONSOLIDATEDEXAMINATION: CTA OF THE CHEST, ABDOMEN AND PELVIS [...] fracture or suspicious bone lesion is identified. [facility] Rylie Mcdonald MD - 09/28/2024 EXAMINATION: CTA OF THE [...] or reactive airways disease. 5. Colonic diverticulosis. [facility] HealthcareRadiology Study observation (narrative)[facility] HealthcareCTA Chest vessels and Abdominal vessels and Pelvis vessels W contrast IV Ordered By: Rylie Jackson on 06-51-3736[facility] Work Phone: Comp Metabolic Pr/rfx MGon 22-28-6150Wbsqxdb [Mass/Vol]3.9 g/dLNormal3.5-5.2[facility] For [facility] CareComment on above:Performed By: #### URC #### [address] [address] Surgery Scheduling Coordinator: Beto Farah MD [address] [place] [address]383 Surgery Scheduling Coordinator: Wilver Calvillo MDAlbumin/Glob Ratio1.8Putbes3.0-2.5K[facility] Health MiamisburgComment on above:Performed By: #### URC #### [address] [address] Surgery Scheduling Coordinator: Beto Farah MD [address] [place] [address]14383 Surgery Scheduling Coordinator: Sera Naylorline Gaxr978 U/AAjzs60-001HzufpKettering Health MiamisburgComment on above:Performed By: #### URC #### [address] [place] [address] Surgery Scheduling Coordinator: Beto Farah MD [address] [place] 1514383 Surgery Scheduling Coordinator: Wilver Calvillo MDALT [Catalytic activity/Vol]86 U/WCreb62-82FetvgKettering Health MiamisburgComment on above:Performed By: #### URC #### [address] [place] [address] Surgery Scheduling Coordinator: Beto Farah MD [address] [place], [place] 3029883 Surgery Scheduling Coordinator: Mary Naylor gap [Moles/Vol]13 mmol/LNormal9-16[facility] MiamisburgComment on above:Performed By: #### URC #### [facility] [address] [place] [address] Surgery Scheduling Coordinator: Beto Farah MD [address] [place], [place] 5794383 Surgery Scheduling Coordinator: Wilver Calvillo MDAST [Catalytic activity/Vol]110 U/NNjfk21-60VmblbKettering Health MiamisburgComment on above:Performed By: #### URC #### [address] [address] Surgery Scheduling Coordinator: Beto Farah MD [address] [place] [address]14383 Surgery Scheduling Coordinator: Wilver Calvillo MDBilirubin [Mass/Vol]1.7 mg/dLHigh0.00-1.20[facility] MiamisburgComment on above:Performed By: #### URC #### [facility] [address] [place] [address] Surgery Scheduling Coordinator: Beto Farah MD [address] [place] [address]383 Surgery Scheduling Coordinator: Wilver Calvillo MDBUN/CRE Xnalv37Cijf6-84DsvvaKettering Health Miamisburg Comment on above:Performed By: #### URC #### [facility] [address] [place] [address] Surgery Scheduling Coordinator: Beto Farah MD [address] [place] [address] Surgery Scheduling Coordinator: NATHAN Nayloralcium [Mass/Vol]9.0 mg/dLNormal8.6-10.4[facility] MiamisburgComment on above:Performed By: #### URC #### [facility] [address] [place] [address] Surgery Scheduling Coordinator: Beto Farah MD [address] [place], [place] 8275883 Surgery Scheduling Coordinator: NATHAN Naylorhloride [Moles/Vol]104 mmol/IBojnpb19-729PzksmKettering Health MiamisburgComment on above:Performed By: #### URC #### [facility] [employer] [address] [place] [address] Surgery Scheduling Coordinator: Beto Farah MD [address] [place], [place] 5778583 Surgery Scheduling Coordinator: Wilver Calvillo MDCO2 [Moles/Vol]21 mmol/JXwowbh05-78UtuexKettering Health MiamisburgComment on above:Performed By: #### URC #### [facility] [address] [place] [address] Surgery Scheduling Coordinator: Beto Farah MD [address] [place] [address]14383 Surgery Scheduling Coordinator: NATHAN Naylorreatinine [Mass/Vol]1.7 mg/dLHigh0.50-0.90K[facility] Health MiamisburgComment on above:Performed By: #### URC #### [facility] [address] [place] [address] Surgery Scheduling Coordinator: Beto Farah MD [address] [place] [address] Surgery Scheduling Coordinator: Wilver Calvillo MDGFR/1.73 sq M.predicted among non-blacks MDRD (S/P/Bld) [Vol rate/Area]31 mL/min/{1.73_m2}Low>60K[facility] Health MiamisburgComment on above:Result Comment: These results are not intended for [...] or following therapy that affects renal tubular secretion.Performed By: #### URC #### [address] [address] Surgery Scheduling Coordinator: Beto Farah MD [address] [place] [address] Surgery Scheduling Coordinator: Wilver Calvillo MDGlucose [Mass/Vol]218 mg/vQWeld63-80EqqvoNorwalk Memorial HospitalComment on above:Performed By: #### URC #### [address] [address] Surgery Scheduling Coordinator: Beto aFrah MD [address] [place] [address] Surgery Scheduling Coordinator: LORI Naylorotassium [Moles/Vol]5.0 mmol/LNormal3.7-5.3MNorwalk Memorial HospitalComment on above:Performed By: #### URC #### [address] [address] Surgery Scheduling Coordinator: Beto Farah MD [address] [place] [address] Surgery Scheduling Coordinator: Wilver Calvillo MDProtein [Mass/Vol]6.7 g/dLNormal6.6-8.7K[facility] Health MiamisburgComment on above:Performed By: #### URC #### [address] [address] Surgery Scheduling Coordinator: Beto Farah MD [address] [place] [address] Surgery Scheduling Coordinator: Wilver Calvillo MDSodium [Moles/Vol]138 mmol/ZRpdzii394-425Ckggf Tiffin HospitalComment on above:Performed By: #### URC #### [facility] [address] [place] [address] Surgery Scheduling Coordinator: Beto Farah MD [facility] [address] [place] [address] Surgery Scheduling Coordinator: Wilver Calvillo MDUrea nitrogen [Mass/Vol]57 mg/dLHigh8-23K[facility] Health MiamisburgComment on above:Performed By: #### URC #### [facility] [address] [place] [address] Surgery Scheduling Coordinator: Beto Farah MD [facility] [address] [place] [place] [address] Surgery Scheduling Coordinator: Wilver Calvillo [facility] – TALIHINAomprehensive Metabolic Panel w/ Reflex to MGon 00-17-8490Etyblcs [Mass/Vol]3.9 g/dL3.5 - 5.2 g/dLBon [facility] Albumin/Globulin [Mass ratio]1.4 {ratio}1.0 - 2.5Bon [facility] HealthALP [Catalytic activity/Vol]209 U/LHigh35 - 104 U/LBon [facility] HealthALT [Catalytic activity/Vol]86 U/LHigh10 - 35 U/LBon [facility] HealthAnion gap [Moles/Vol]13 mmol/L9 - 16 mmol/LBon [facility] HealthAST [Catalytic activity/Vol]110 U/LHigh10 - 35 U/LBon [facility] HealthBilirubin [Mass/Vol] 1.7 mg/dLHigh0.00 - 1.20 mg/dLBon [facility] HealthCalcium [Mass/Vol]9 mg/dL 8.6 - 10.4 mg/dLBon Secours The Christ Hospitaly HealthChloride [Moles/Vol]104 mmol/L98 - 107 mmol/LBon [facility] HealthCO2 [Moles/Vol]21 mmol/L20 - 31 mmol/LBon [facility] HealthCreatinine [Mass/Vol]1.7 mg/dLHigh0.50 - 0.90 mg/dLBon [facility] HealthEst, Glom Filt Wrma70Scf- PINFBon SecOchsner Medical Center HealthComment on above: These results are not intended [...] therapy that affects renal tubular secretion. Glucose [Mass/Vol]218 mg/dTJubt54 - 99 mg/dLBon [facility] Interpretation and review of laboratory resultsAbnoVirginia Hospital Center Potassium [Moles/Vol]5 mmol/L3.7 - 5.3 mmol/LBon [facility] HospitalProtein [Mass/Vol]6.7 g/dL6.6 - 8.7 g/dLBon [facility] HospitalSodium [Moles/Vol]138 mmol/L136 - 145 mmol/LBon [facility] HospitalUrea nitrogen [Mass/Vol]57 mg/dL High8 - 23 mg/dLBon [facility] HospitalUrea nitrogen/Creatinine [Mass ratio]34 mg/mgHigh9 - 20Bon [facility] CenterEKG Rhythm Strip on 20-83-9216ZJDHVAccess Hospital DaytonLactate, Sepsison 53-71-0812Wtqhxxyfzehsyh and review of laboratory resultsAbnormMountain View Regional Medical CenterLactate (BldV) [Moles/Vol]2 mmol/LHigh0.5 - 1.9 mmol/LBon [facility] Medical CenterLactic Acid, Sepsis2.0 mmol/LHigh 0.5-1.9[facility] on above:Performed By: #### URC #### [facility] [address] [place] [address] Surgery Scheduling Coordinator: Beto Farah MD [facility] [address] [place] [address] [place] [address] Surgery Scheduling Coordinator: Wilver Calvillo MDInterpretation and review of laboratory results AbnormalTwin County Regional HealthcareLactate (BldV) [Moles/Vol]2.2 mmol/LHigh0.5 - 1.9 mmol/LBon [facility] Medical CenterLactic Acid, Sepsis2.2 mmol/LHigh0.5-1.9[facility] MiamisburgComment on above:Performed By: #### LACDS #### [address] [place], [place] 348[address]83 Surgery Scheduling Coordinator: Wilver Calvillo MDLipaseon 24-22-5503Eytjdf [Catalytic activity/Vol] 42 U/L13 - 60 U/LBon [facility] Medical CenterLipase [Catalytic activity/Vol]42 U/LGfdzwi16-66IlwspKettering Health MiamisburgComment on above: Performed By: #### URC #### [facility] [address] [place], [place] 9255508 Surgery Scheduling Coordinator: Beto Farah MD [address] [place] [address] Surgery Scheduling Coordinator: NADEEM Nayloricroscopic Urinalysison 76-54-3329Frkbghajmk cells LM.HPF (Urine sed) [#/Area]0 TO 2Bon [facility] HospitalInterpretation and review of laboratory resultsAbnormalTwin County Regional HealthcareMucus Ql (Urine sed)TRACEAbnormalNonHenrico Doctors' Hospital—Henrico CampusRBC LM.HPF (Urine sed) [#/Area]None [facility] HealthcareWBC LM.HPF (Urine sed) [#/Area]0 TO 2Bon [facility] 88-65-4233GQY Coag (PPP) [Relative time]1.2 {INR}NormalKettering Health MiamisburgComment on above:Result Comment: Therapeutic Range: Moderate Anticoagulant Intensity: INR = 2.0-3.0 High Anticoagulant Intensity: INR = 2.5-3.5Performed By: #### URC #### [facility] [address] [place], [place] 3714508 Surgery Scheduling Coordinator: Beto Farah MD [address] [place] [address] Surgery Scheduling Coordinator: DC Naylor Coag (PPP) [Time]14.6 sHigh11.7-14.1MThe Christ Hospital on above:Performed By: #### URC #### [facility] [employer] [address] [place], [place] [address] Surgery Scheduling Coordinator: Beto Farah MD [facility] [address] [place] [address] Surgery Scheduling Coordinator: Yo Naylor 65-02-0487vLSQ Coag (Bld) [Time]31.8 sBon [facility] on above: IV Heparin Therapy Range: 62.0-94.0 [facility] HealthcareProcalcitoninon 25-08-2675Qnigrxtuttdwcg and review of laboratory resultsAbnormalTwin County Regional HealthcareProcalcitonin [Mass/Vol]1.16 ng/mLHigh0.00 - 0.09 ng/mLHenrico Doctors' Hospital—[facility] on above: Suspected Sepsis: <0.50 ng/mL Low [...] entered into the Change in Procalcitonin Calculator (www.xbyxpg-ylx-ajktynyapt.com) to determine the patient's Mortality Risk Prognosis In healthy neonates, plasma Procalcitonin (PCT) concentrations increase gradually after , reaching peak values at about 24 hours of age then decrease to normal values below 0.5 ng/mL by 48-72 hours of age. [facility] HealthcareProcalcitonin1.16 ng/mLHigh0.00-0.09[facility] on above:Result Comment: Suspected Sepsis: <0.50 ng/mL Low likelihood [...] entered into the Change in Procalcitonin Calculator (www.hirwue-kym-qaffknpvtn.Traity) to determine the patient's Mortality Risk Prognosis In healthy neonates, plasma Procalcitonin (PCT) concentrations increase gradually after , reaching peak values at about 24 hours of age then decrease to normal values below 0.5 ng/mL by 48-72 hours of age.Performed By: #### UAMIC #### [facility] [address] [place] [address] [place] [address] Surgery Scheduling Coordinator: Leigh Naylorime-INRon 80-66-2847BQT Coag (PPP) [Relative time]1.2 {INR}[facility] on above: Therapeutic Range: Moderate Anticoagulant Intensity: INR = 2.0-3.0 High Anticoagulant Intensity: INR = 2.5-3.5 Interpretation and review of laboratory resultsAbCarilion [facility] PT Coag (PPP) [Time]14.6 [facility] Type + Screenon 96-00-4951Guhc + ScreenSample Expiration 10/01/2024,9224 Arm Band Number [id number] ABO/Rh(D) A POSITIVE Antibody Screen NEGATIVE Unit Number [id number] Blood Component Type Leukocyte Reduced Red Cell Unit Division 00 Status of Unit TRANSFUSED Transfusion Status OK TO TRANSFUSE Crossmatch Result COMPATIBLE Unit Number [id number] Blood Component Type Leukocyte Reduced Red Cell Unit Division 00 Status of Unit TRANSFUSED Transfusion Status OK TO TRANSFUSE Crossmatch Result COMPATIBLENormalKettering Health MiamisburgComment on above: Performed By: #### URC #### [facility] [address] [place], [place] [address] Surgery Scheduling Coordinator: Beto Farah MD [facility] [address] [place], [place] 1475583 Surgery Scheduling Coordinator: LOGAN Naylor w/Reflex Cultureon 66-28-5718Vkcufgmii, SemiQt,UrSMALLAbnormalNEGMerUniversity of Connecticut Health Center/John Dempsey HospitalComment on above:Performed By: #### UAMIC #### [facility] [address] [place] [address] Dr. [place], [place] 8503383 Surgery Scheduling Coordinator: Linda Naylor, UrineNegativeParma Community General Hospital Comment on above:Performed By: #### UAMIC #### [facility] [address] [place] [address] Dr. [place], [place] 248[address]83 Surgery Scheduling Coordinator: Delfina Naylorrity ()ClearNormalCLEARKettering Health Miamisburg Comment on above:Performed By: #### UAMIC #### [facility] [address] [place] [address] Dr. [place], [place] 4422583 Surgery Scheduling Coordinator: NATHAN Naylorolor ()YellowNoalYELMerUniversity of Connecticut Health Center/John Dempsey Hospital Comment on above:Performed By: #### UAMIC #### [facility] [address] [place] [address] Dr. [place], [place] 5417283 Surgery Scheduling Coordinator: Wilver Calvillo MDGlucose Ql (U)NegativeNormalNEGKettering Health MiamisburgComment on above:Performed By: #### UAMIC #### [facility] [address] [place] [address] Dr. [place], [place] 3141483 Surgery Scheduling Coordinator: Wilver Calvillo MDKetones Ql (U)NegativeNormalNEGKettering Health MiamisburgComment on above:Performed By: #### UAMIC #### [facility] [address] [place] [address] [place] [address] Surgery Scheduling Coordinator: Wilver Calvillo MDLeukocyte esterase Test strip Ql (U)NegativeNormal NEGKettering Health MiamisburgComment on above:Performed By: #### UAMIC #### [facility] [address] [place] [address] Dr. [place], [place] 2388983 Surgery Scheduling Coordinator: Wilver Calvillo MDNitrite,UrNegativeNormalNEGKettering Health Miamisburg Comment on above:Performed By: #### UAMIC #### [facility] [address] [place] [address] [place] [address] Surgery Scheduling Coordinator: LORI Naylor,Ur6.4Lorkke2.0-9.0K[facility] MiamisburgComment on above:Performed By: #### UAMIC #### [address] [place] [address] Surgery Scheduling Coordinator: LORI Naylorrotein Ql (U)NegativeNormalNEGEast [facility] Regional Hospital HospitalComment on above:Performed By: #### UAMIC #### [address] [place] [address] Surgery Scheduling Coordinator: MORIS Naylorpec. [place],Ur1.479Wbtiin4.010-1.020K[facility] Health MiamisburgComment on above:Performed By: #### UAMIC #### [address] [place] [address] Surgery Scheduling Coordinator: Wilver Calvillo MDUrobilinogen,UrNormalNormal0.0-1.0K[facility] MiamisburgComment on above:Performed By: #### UAMIC #### [facility] [address] [place] [address] Dr. [place], [place] 9760583 Surgery Scheduling Coordinator: Wilver Calvillo MDUrinalysis with Reflex to Cultureon 09-28-2024 Bilirubin Ql (U)SMALLAbnormalNEGATIVEBon Secours Dunlap Memorial HospitalClarity (U)Clear ClearBon Secours Dunlap Memorial HospitalColor (U)YellowYellowBon [facility] Glucose Test strip (U) [Mass/Vol]NegativeNEGATIVE mg/dLBon [facility] Hemoglobin Auto test strip Ql (U)NegativeNEGATIVETwin County Regional Healthcare Interpretation and review of laboratory resultsAbnormalTwin County Regional Healthcare Ketones (U) [Mass/Vol]NegativeNEGATIVE mg/dLBon [facility] HospitalLeukocyte esterase Test strip Ql (U)NegativeNEGATIVEBon [facility] HospitalNitrite Ql (U) NegativeNEGATIVEBon [facility] HospitalpH (U)6 [pH]5.0 - 9.0T[facility] HealthcareProtein (U) [Mass/Vol]NegativeNEGATIVE mg/dLBon [facility] Specific gravity (U) [Rel density]1.011.010 - 1.020[facility] Urobilinogen Qn (U)Normal0.0 - 1.0 EU/dLBFlandreau Medical Center / Avera HealthUrinalysis,Microon 61-28-6854Fraobyeofb cells LM Ql (Urine sed)0 TO 0Ysford8-02RneikKettering Health MiamisburgComment on above:Performed By: #### UAMIC #### [facility] [address] [place] [place] [address] Surgery Scheduling Coordinator: Laura Naylor StrandsTRACEAbnoAccess Hospital DaytonComment on above:Performed By: #### UAMIC #### [facility] [address] [place] [id number] Surgery Scheduling Coordinator: Janet Naylor RBC'sNoneNormal0-2MNorwalk Memorial Hospital Comment on above:Performed By: #### UAMIC #### [facility] [address] [place] 15[address]383 Surgery Scheduling Coordinator: Janet Naylor WBC's0 TO 0Nmzslr0-6HimuqKettering Health Miamisburg Comment on above:Performed By: #### UAMIC #### [facility] [address] [place] [place] [address] Surgery Scheduling Coordinator: Wilver Calvillo MDHEPATIC WEDGE PRESSURE/VENOon 11-21-4330UFRYFXV WEDGE PRESSURE/VENOEXAM: IR HEPATIC WEDGE PRESSURE/VENO, IR TRANSCATHETER BIOPSY, [...] medication(s), I spent 33 minutes of continuous pbqh-tj-qvgr time with the patient. COMPARISON: No prior [...] wire was advanced into the IVC. A 10-Taiwanese by 40 cm hemostatic sheath was placed. [...] Given 1 mg Gi (more content not included)...[facility] TRANSCATHETER BIOPSYon 14-12-7175LJLPSYGCSRUDL BIOPSYEXAM: IR HEPATIC WEDGE PRESSURE/VENO, IR TRANSCATHETER BIOPSY, [...] medication(s), I spent 33 minutes of continuous hogc-qj-bsjw time with the patient. COMPARISON: No prior [...] wire was advanced into the IVC. A 10-Taiwanese by 40 cm hemostatic sheath was placed. [...] Given 1 mg Gi (more content not included)...[facility] GENERAL PROCEDUREon 51-05-3010XWBOhiohealth Grove City Methodist HospitalRadiology Study observation (narrative)[facility] HospitalGLUCOSE POCon 30-94-9057Jskwbhq [Mass/Vol]133 mg/dL70 - 179 mg/dLOSU Kettering Health – Soin Medical CenterPOC Sample TypeVENOOSU Kettering Health – Soin Medical CenterTest performed at address of the patient encounter.[facility] CenterURG PATH REQUESTon 65-62-1998Ipbg ReportNormBarney Children's Medical CenterComment on above:Result Comment: Surgical Pathology Report Case: [id number] Authorizing Provider: ERNIE Duke Collected: 09/20/2024 12:08 PM Ordering Location: [facility] Received: 09/20/2024 12:24 PM Hospital Pathologist: Jj Crowell MD Specimen: Liver Non-Tumor (medical)Performed By: #### SURGP #### [facility] (DEFAULT) [address] [place] [address] 13918Etdwxhhc Wckzvma46 year old female with history of PBC, indeterminate hepatic fibrosis.[facility] Comment on above:Performed By: #### SURGP #### [facility] (DEFAULT) [address] [place] [address] 73507Pdbny DescriptionWVUMedicine Harrison Community HospitalComment on above:Result Comment: The specimen is received in one properly labeled container with the patient's name and accession number. A. The specimen is designated transjugular medical liver core biopsy and consists of five copeland soft tissue cores that range from 0.5 cm up to 1.6 cm in length, with an average diameter of 0.1 cm. TE2 Lab Use Only: JobID [id number] Grosser for this case was: Judith Shepherdformed By: #### SURGP #### [facility] (DEFAULT) [address] [place] [address] 81108Hveopsawnwd DescriptionWVUMedicine Harrison Community HospitalComment on above:Result Comment: A microscopic examination was performed. All controls show appropriate reactivity. All immunohistochemistry (IHC), in situ hybridization (LEONARDA), and histochemical tests were developed by and are performed at the [facility] Clinical Laboratory, Histology and IHC Lab, [address] [place] [address]. All Immunofluorescent (IF) tests were developed by and are performed at the [facility] Clinical Laboratory, Renal Division, [address] [place] [address]. All tests reported here, except for PD-L1, have not been cleared by or approved by the US Food and Drug Administration (FDA). The laboratory is regulated under CLIA as qualified to perform high-complexity testing. The tests are usedfor clinical purposes. They should not be regarded as investigational or for research.Performed By: #### SURGP #### [facility] (DEFAULT) [address] [place] [address] 23846Skcuzyxjdt DiagnosisNoJoint Township District Memorial HospitalComment on above:Result Comment: A. Liver, transjugular core biopsy: Focal bile duct injury with inflammation, compatible with clinical history of PBC Trichrome stain highlights bridging fibrosis with focal nodular formation, stage 3-4 Iron stain is negative PAS with diastase is negative for intracytoplasmic globules at 1835 EDTPerformed By: #### SURGP #### [facility] (DEFAULT) [address] [address]Yoilihoulerb Interpretation Performed at:[facility] HospitalComment on above:Result Comment: [facility] CL[facility]ICAL [facility] For Immediate Release to Patient's [facility]? Yes [address] [address]Veglrtzgz By: #### SURGP #### [facility] (DEFAULT) [address] [address]Zdslqfmoh Clinical Summaryon 52-46-7357Rtkjffuuh Clinical SummaryJoint Township District Memorial Hospital Post-Acute Care Transfer Instructions PERSON INFORMATION Name: Ashlee Banerjee : 1950 PHYSICIANS Admitting Physician: Attending Physician: Andrae Patino MD PCP: Rafita FOSTER, Cooper Kirby Discharge Diagnosis: Comment: PATIENT EDUCATION INFORMATION Instructions: Medication Leaflets: Follow-up: MEDICATION LIST Medication Reconciliation at Discharge: New Medications [id number], [address], [place] [id number], [phone] omeprazole (omeprazole 40 mg oral delayed release capsule) 1 Capsules Oral (given by mouth) every day for 30 Days. Refills: 6. Last Dose: Medications that have not changed Other Medications aspirin (aspirin 81 mg oral delayed release tablet) 1 Tabs Oral (given by mouth) every day. Last Dose: atorvastatin (atorvastatin 20 mg oral tablet) 1 Tabs Oral (given by mouth) every day. Last Dose: bifidobacterium-lactobacillus (Probiotic Formula oral capsule) Oral (given by mouth) every day. Last Dose: calcium citrate Oral (given by mouth) 2 times a day. Last Dose: carvedilol (carvedilol 25 mg oral tablet) 1 Tabs Oral (given by mouth) 2 times a day. Last Dose: cetirizine (ZyrTEC 10 mg oral tablet) 1 Tabs Oral (given by mouth) every day. Last Dose: cholecalciferol (Vitamin D3 1000 intl units oral capsule) 25 Microgram Oral (given by mouth) every day. Last Dose: cycloSPORINE ophthalmic (Restasis 0.05% ophthalmic emulsion) 1 Drops Both eyes 2 times a day. Last Dose: hydroCHLOROthiazide (hydroCHLOROthiazide 12.5 mg oral tablet) Last Dose: levothyroxine (Synthroid 100 mcg (0.1 mg) oral tablet) 1 Tabs Oral (given by mouth) every day. Last Dose: meloxicam (meloxicam 15 mg oral tablet) Oral (given by mouth) every day. Last Dose: metFORMIN (metFORMIN 500 mg oral tablet) TAKE 1 TABLET BY MOUTH TWICE A DAY WITH MEALS. Last Dose: Misc Medication (Restore Ocular) Ophthalmic (the eye) every day. Last Dose: olopatadine ophthalmic (Pataday 0.2% ophthalmic solution) 1 Drops Both eyes every day. Last Dose: omega-3 polyunsaturated fatty acids (Pomfret-3 oral capsule) Last Dose: traZODone (traZODone 50 mg oral tablet) every day. Last Dose: triamcinolone nasal (Nasacort Allergy 24HR 55 mcg/inh nasal spray) 2 Sprays Nasal (into the nose) every day. Last Dose: ubiquinone (Co-Q10 100 mg oral capsule) 2 Capsules Oral (given by mouth) every day. Last Dose: ursodiol (ursodiol 500 mg oral tablet) 1 Tabs Oral (given by mouth) 2 times a day for 90 Days. Refills: 2. Last Dose: valsartan (valsartan 320 mg oral tablet) Last Dose: Patient?s Final Home Medication List Upon Discharge: [id number], [address], [place] [id number], [phone] omeprazole (omeprazole 40 mg oral delayed release capsule) 1 Capsules Oral (given by mouth) every day for 30 Days. Refills: 6. Other Medications aspirin (aspirin 81 mg oral delayed release tablet) 1 Tabs Oral (given by mouth) every day. atorvastatin (atorvastatin 20 mg oral tablet) 1 Tabs Oral (given by mouth) every day. bifidobacterium-lactobacillus (Probiotic Formula oral capsule) Oral (given by [...] eyes every day. omega-3 polyunsaturated fatty acids (Pomfret-3 oral capsule) traZODone (traZODone 50 mg oral [...] (valsartan 320 mg oral (more content not included)...NormalBerger HospitalPO Glucose Randomon 91-72-9884Dgiapkx [Mass/Vol]134 mg/dL Wejw82-99JeganpqmsBerger HospitalComment on above:Performed By: #### CD:[id number] #### [facility] [address] [place], [place] [address]WJ C-SPINE FLEX/EXT ONLY 2 VIEWSon 99-93-7736QR C-SPINE FLEX/EXT ONLY 2 VIEWSEXAMINATION: XR C-SPINE FLEX/EXT ONLY 2 VIEWS 04/13/2024 [...] spine with 1 mm posterior displacement of theC4 vertebral body in relation to C5 on flexion in the setting of retrolisthesis. MACRO: NoneUC West [facility] HospitalXR Cervical spine Lateral Views W flexion and W extensionon 77-30-8450BOFCKHGURMW: XR C-SPINE FLEX/EXT ONLY 2 VIEWS 04/13/2024 [...] spine with 1 mm posterior displacement of theC4 vertebral body in relation to C5 on flexion in the setting of retrolisthesis. MACRO: None Bacilio Davis MD - 04/13/2024 EXAMINATION: XR C-SPINE FLEX/EXT [...] spine with 1 mm posterior displacement of theC4 vertebral body in relation to C5 on flexion in the setting of retrolisthesis. MACRO: None MetroHealthRadiology Study observation (narrative)MetFort Hamilton HospitalXR Cervical spine Lateral Views W flexion and W extensionOrdered By: Bacilio Lisa on 04-13-2024 [facility] Work Phone: Progress Noteson 40-27-8986Ngvqpxyzgthxr Authentication Interface Message TextDX: [id number] Posterior cervical laminoplasty, C4 to C7, with [employer] laminoplasty system. LV: [id number] Ms Rubio returns today now 1 year [...] up with standing lateral flexion-extension cervical spine xrays.NormalThe Parkwood Hospital SystemCult,Urineon 78-07-9302Iwiw,UrineSpecimen Description .CLEAN CATCH URINE Special Requests Site: [...] <=4 SUSCEPTIBLE Tobramycin <=1 SUSCEPTIBLE Trimethoprim/Sulfa <=20 SUSCEPTIBLESusceptibleKettering Health MiamisburgComment on above:Performed By: #### URC #### [facility] [address] [place], [place] [address] Surgery Scheduling Coordinator: Beto Farah MD [facility] [address] [place] [address] [place] [address] Surgery Scheduling Coordinator: Wilver Calvillo MDUrinalysis w/ Microon 10-62-0680Zgjzptaf5+Abnormal NONEKettering Health MiamisburgComment on above:Performed By: #### UAMIC #### [facility] [address] [place] [address] Dr. [place], [place] [id number] Surgery Scheduling Coordinator: Gisele Naylor, SemiQt,UrNegativeNormalNEGKettering Health MiamisburgComment on above:Performed By: #### UAMIC #### [facility] [address] [place] [address] [place] [address] Surgery Scheduling Coordinator: Linda Naylor, UrineNegativeNormalCincinnati Children's [facility] Comment on above:Performed By: #### UAMIC #### [facility] [address] [place] [address] Dr. [place], [place] 9618283 Surgery Scheduling Coordinator: Delfina Naylorrity (ClearNormalCLEARKettering Health Miamisburg Comment on above:Performed By: #### UAMIC #### [facility] [address] [place] [place] [address] Surgery Scheduling Coordinator: NATHAN Naylorolor (U)YellowNormalYSheltering Arms Hospital Comment on above:Performed By: #### UAMIC #### [facility] [address] [place], [place] [address]83 Surgery Scheduling Coordinator: Wilver Calvillo MDEpithelial cells LM Ql (Urine sed)0 TO 0Uccxyj0-22 [facility] Health MiamisburgComment on above:Performed By: #### UAMIC #### [address] [place], [place] 65[address]83 Surgery Scheduling Coordinator: Wilver Calvillo MDGlucose Ql (U)NegativeNormalNEGEast [facility] Regional Hospital HospitalComment on above:Performed By: #### UAMIC #### [address] [place], [place] 9[address]83 Surgery Scheduling Coordinator: Wilver Calvillo MDKetones Ql (U)NegativeNormalNEGMercy Raymondville HospitalComment on above:Performed By: #### UAMIC #### [address] [place], [facility]83 Surgery Scheduling Coordinator: Wilver Calvillo MDLeukocyte esterase Test strip Ql (U)NegativeNormal NEGTrinity Health System East Campuscy Hospital For Special CareComment on above:Performed By: #### UAMIC #### [address] [place] [address] Surgery Scheduling Coordinator: Wilver Calvillo MDNitrite,UrNegativeNormalNEGKettering Health Miamisburg Comment on above:Performed By: #### UAMIC #### [address] [place], [facility]83 Surgery Scheduling Coordinator: LORI Naylor,Ur5.1Nwlmyy1.0-9.0Tr[facility] Campuscy Hospital For Special CareComment on above:Performed By: #### UAMIC #### [address] [place] [address]383 Surgery Scheduling Coordinator: LORI Naylorrotein Ql (U)NegativeNormalNEGMercy Raymondville HospitalComment on above:Performed By: #### UAMIC #### [address] [place], [place] 939[address]83 Surgery Scheduling Coordinator: MORIS Naylorpec. [place],Ur1.900Wunc3.010-1.020K[facility]tering Health MiamisburgComment on above:Performed By: #### UAMIC #### [facility] [address] [place], [place] 305[address] Surgery Scheduling Coordinator: Janet Naylor RBC's0 TO 6Mxdbwr4-0AgsraNorwalk Memorial Hospital Comment on above:Performed By: #### UAMIC #### [facility] [address] [place], [place] 66[address]83 Surgery Scheduling Coordinator: Janet Naylor WBC's0 TO 9Bzztid2-8XwomjKettering Health Miamisburg Comment on above:Performed By: #### UAMIC #### [facility] [address] [place] [address] Dr. [place] [address]383 Surgery Scheduling Coordinator: Wilver Calvillo MDUrobilinogen,UrNormalNormal0.0-1.0K[facility] Health MiamisburgComment on above:Performed By: #### UAMIC #### [facility] [address] [place] [address] Dr. [place] [address]383 Surgery Scheduling Coordinator: Wilver Calvillo MDUrinalysis with Microscopicon 69-23-1410Kxuckttr LM Ql (Urine sed)2+AbnormalNoneBon Secours Mercy HealthBilirubin Ql (U)Negative NEGATIVEBon Secours Mercy HealthClarity (U)ClearClearBon Secours Mercy Health Color (U)YellowYellowBon Secours Mercy HealthEpithelial cells LM.HPF (Urine sed) [#/Area]0 TO 2Bon [facility] Mercy HealthGlucose Test strip (U) [Mass/Vol]Negative NEGATIVE mg/dLBon Secours Mercy HealthHemoglobin Auto test strip Ql (U)Negative NEGATIVEBon Secours Mercy HealthInterpretation and review of laboratory results AbnormalBon Secours Mercy HealthKetones (U) [Mass/Vol]NegativeNEGATIVE mg/dLBon Secours Mercy HealthLeukocyte esterase Test strip Ql (U)NegativeNEGATIVEBon Secours Mercy HealthNitrite Ql (U)NegativeNEGATIVEBon Secours The Christ Hospitaly HealthpH (U) 5.5 [pH]5.0 - 9.0[facility] Hospitaly HealthProtein (U) [Mass/Vol]NegativeNEGATIVE mg/dLBon Secours The Christ Hospitaly HealthRBC LM.HPF (Urine sed) [#/Area]0 TO 2Bon [facility] Mercy HealthSpecific gravity (U) [Rel density]1.315Bcfa8.010 - 1.020[facility] HealthUrobilinogen Qn (U)Normal0.0 - 1.0 EU/dLBon Secours The Christ Hospitaly HealthWBC LM.HPF (Urine sed) [#/Area]0 TO 2Bon [facility] Mercy HealthBon Secours The Christ Hospitaly HealthXR Hip - left 3 Viewson 84-32-0913Lalblba Result: AP and lateral of left hip showed acceptable position and alignment of left total hip arthroplasty. There was no evidence of loosening of the acetabular cup or femoral stem. Femoral head was well centered in the acetabular liner without evidence of asymmetric or accelerated wear. There was no gross evidence of fracture and/or dislocation. Impression: Unremarkable left total hip arthroplasty. [facility] Women[facility] HospitalRadiology Study observation (narrative)[facility] Intraoperative Recordon 72-79-6219AFCP Intraoperative RecordMAGR Intra-Op Record Summary Primary Physician: Finalized Date/Time: 01/31/24 12:58:14 Pt. Name: ASHLEE BANEJREE Bhavana/Sex: 1950 FEMALE Med Rec #: [id number] Physician: KEITH GABRIEL DO Financial #: [id number] Pt. Type: I [facility]/ Admit/Disch: 12/23/23 05:40:58 - 12/27/23 16:10:00 Institution: [...] Case Attendee George Beverly MD, Erika RN Amelia Acosta RN Role Performed Anesthesiologist of [employer]cher[employer] Hel[employer]cher[employer] Helper Record Time In 12/23/23 07:41:00 12/23/23 07:41:00 [...] Performs skin preparation Im.270.1 Implements protective measures toprevent skin and tissue injury due to chemical [...] E.10 Evaluates for sign (more content not included)...[facility] Coding Summaryon 24-83-3373Ahnsrt SummaryMLBase 64 EvrbrurgFJw1zYo+PGhlYWQ+GI6SJMEiX41kaZCayC9vB5HQJXlEPmdeVZVJKShJAyInikBnUR1puJXn ZXJu [file] ZGV (more content not included)...[facility] HospitalConsultation/Specialist Noteon 40-03-5830Bekrniptupob/Specialist Note [id number]#1.00[facility] Consent Formson 77-49-7784Zalnuzh Forms [id number]#1.00[facility] Consent [id number]#1.00[facility] Medical CenterOutside Recordson 60-45-4113Lapbyio Records [id number]#1.00[facility] Provider Orderson 14-02-7054Bazskbem Orders [id number]#1.00[facility] Provider [id number]#1.00[facility] CenterProvider [id number]#1.00[facility] CenterTelemetry Stripson 80-58-0598Fdydqvtjk Strips [id number]#1.00[facility] Inpatient Patient Summaryon 23-77-1763Wltzanlsk Patient SummaryUniversity [facility]als [facility] [address] [place] [address] Patient Discharge Instructions Name: ASHLEE BANERJEE : 1950 Patient Address: [address] [place] [address] Primary Care Provider: Name: COOPER ELLER MD After you are discharged if you find you have any questions, please, call [phone] to speak to a nurse. The Pharmacy at [facility] is open Wednesday through Wednesday from 9A to 6P and Wednesday and Wednesday from 9A to 5P Discharge Diagnosis: Arthritis of left hip Prescription Information: If you have been given a prescription for narcotics, seek immediate medical attention if you have any difficulty breathing or any sudden status changes such as confusion andsleepiness. If you or anyone you know is experiencing suicidal thoughts, mental health, alcohol and/or drug addiction problems; contact the [facility] 14/12 Crisis Hotline -Text 4HCYK to 975786. If you received any narcotics, sedation, or [...] business decisions or sign any legal documents [facility] would like to thank you for allowing us to assist you with your healthcare needs.The following includes patient education materials and information regarding your injury/illness. ASHLEE BANERJEE has been given the following list of follow-up instructions, prescriptions,and patient education materials: Follow-up Instructions With: Address: When: KEITH GABRIEL DO [address] [facility] [address] [place] [address] Within 1 to 2 weeks, only if needed With: Address: When: COOPER FRENCH Business (1) Comments: gave patient blue card to make follow up appt with pcp With: Address: When: Omar Dutta [address] [place] [address], [address] [place] [address] Business (1) 01/06/2024 10:00 AM Medications During the course of your visit, your medication list was updated with the most current information. The details of those changes are reflected below: New Medications [facility], [address], [place] [id number], [phone] apixaban (Eliquis 2.5 mg oral tablet) 1 [...] reconstitution) 1.7 gram Oral (given by mouth) everyday as needed for constipation. Template Non-Formulary (Restore) [...] appropriately. As an addit (more content not included)...White HospitalNutrition Noteon 66-04-0406Pgfekmpdl NotePer intake records, Pt avg 50% of most meals, drinking supplements. Last BM /. BS 116-205Hmg/dl past 24hrs; SSI in place. CRP 13.5H, alb 2.5L suspect low from inflammation coupled w/ post op anemia. H/H 8.8/25.9L slight improvement. Per medical rounds, discharge anticipated to SNF later today. Would continue to encourage oral nutritional supplements for higher protein/nutritional needs.White HospitalPOCT Glucose Levelon 12-76-9552Zkpiozl [Mass/Vol]231 mg/tLTwzn71-19884 Jones StreetComment on above:Result Comment: OPR_ID=IN_LIST,TGC FLAG = False,Meter:[id number] Ball Rolling Machine Operator:[id number] Michelle GiavahnaPerformed By: #### [id number] #### [facility] (DEFAULT) [address] [place] [address]Fucfnku [Mass/Vol]116 mg/bZAklogi56-821Qeqojusq[address] [place] [address] Comment on above:Result Comment: OPR_ID=IN_LIST,TGC FLAG = False,Meter:[id number] Ball Rolling Machine Operator:[id number] Michelle GiavahnaPerformed By: #### [id number] #### [facility] (DEFAULT) [address] [place] [address] 18[address]Hjdpbmec Noteon 16-93-6154Vquafyhi NoteI have personally reviewed the patient's medication list upon discharge including, prescription medications, OTC products, vitamins and supplements. Below are the following medications the patient isdischarged on. New Medications [facility], [address], [place] [id number], [phone] apixaban (Eliquis 2.5 mg oral tablet) 1 [...] reconstitution) 1.7 gram Oral (given by mouth) everyday as needed for constipation. Template Non-Formulary (Restore) [...] [Verified on: 12/27/2023 16:04 EDT] Omar Fischer PharmSONALISumma Health [facility] Note - Nurseon 43-18-3188Utxqsklj Note - NurseReport called over to [place] facility, spoke with Leonie regarding patient care here at [facility].All questions and concerns were answered to satisfaction. Prior to leaving surgical site was cleansed after old dressing was removed, and a new dressing was applied. Patient tolerate well. Discharge instructions were given to patient and patient sister regarding medications, follow up appointment and restrictions. Both verbalized understanding. Patient sister will be transporting her to the [place] and the facility was informed of this. All patient belongings were sent with the patijamal t, clothing cell phones and chargers. Patient was discharge per wheelchair. [Electronically Signed on: 12/27/2023 16:15 EDT] Yarely Monique RN [Verified on: 12/27/2023 16:15 EDT] Yarely Monique RNNormalMagruder [facility] Echocardiogram Completeon 79-27-3150AW Echocardiogram Complete APPROVED REPORT EXAM: Comprehensive 2D, [...] Junction2.19 cm F: 2.3 - 2.9 LV Bvrx545.87 g LVOT Diameter 1.70 cm IVC1.22 (<= [...] Single Plane 4 CH 61.08 mLBiplane LA Baoyzd35.90 mL Single Plane 2 CH39.17 mLLA ESV Index32.26 mL/m2 Right Atrium Area Systole RA Systolic Area A4C9.18 cm2RA Systolic Vol A4C19.10 mL Aortic Valve AoV Peak Velocity2.05 m/sLVOT Peak Velocity1.00 m/s AO Mean Velocity1.44 m/sLVOT Mean Velocity0.61 m/s AO Peak PG16.78 mmHgLVOT Peak PG4.00 mmHg AO Mean PG9.23 mmHgLVOT Mean PG1.82 mmHg AO V2 VTI39.28 cmLVOT V1 VTI20.40 cm ROBERT (Vmax)1.11 wd7WRHM Area 2.28 cm2 ROBERT (VTI)1.18 cm2SV (LVOT) 46.46 mL Indexed ROBERT (VTI)0.72 cm2/m2 Mitral Valve MV Max Igaygena269.34 m/sMV PHT57.68 ms MV E Max Velocity0.92 m/sMVA (PHT)3.81 cm2 MV A Max Velocity0.77 m/sMR ERX326.19 cm E/A Ratio1.2MR Peak Velocity5.04 m/s MV Decel. Hmem824.91 ms TDI Med e' Velocity7.33 cm/sMV E / Medial e' 12.54 Lat e' Velocity7.58 cm/sMV E / Lateral e' 12.14 TV S'14.67 cm/s Pulmonary Valve PV Peak Velocity0.98 m/sPV Peak PG3.82 mmHg PV Mean PG2.23 mmHg Tricuspid Valve TR Peak Velocity3.08 m/sRAP Estimate3.00 mmHg TR Peak PG37.95 qrKdEOSL99.95 mmHg Final Signed (Electronic Signature): Milton Pruitt MD 12/27/23 3:51 pm Technologist: [facility].Auto Diff 1on 53-68-3633Acmg [place] %13 % [address]Comment on above:Performed By: #### [id number], [id number] #### [facility] (DEFAULT) [address] [place] [address] 18361Uwut Abs#0.1 w68Ijbwqi3.0-0.2[facility] HospitalComment on above:Performed By: #### [id number], [id number] #### [facility] (DEFAULT) [address] [place] [address] 25957Qcvavjsfl/100 WBC (Bld)1.2 %Normal0.2-2.0[facility] Hospital Comment on above:Performed By: #### [id number], [id number] #### [facility] (DEFAULT) [address] [place] [address] 59936Miq Abs#0.1 l64Xxvhoz3.0-0.4[facility] HospitalComment on above:Performed By: #### [id number], [id number] #### [facility] (DEFAULT) [address] [place] [address] 26628Fkmhqssbzkg/100 WBC (Bld)0.9 %Normal0.9-4.0[facility] HospitalComment on above:Performed By: #### [id number], [id number] #### [facility] (DEFAULT) [address] [place] [address] 00365Ryaym Abs#1.3 z45Fipdxt3.3-2.9[facility] HospitalComment on above:Performed By: #### [id number], [id number] #### [facility] (DEFAULT) [address] [place] [address] 16266Wnhtflzhjxa/100 WBC (Bld)19 %Rnpysj25-83[facility] Comment on above:Performed By: #### [id number], [id number] #### [facility] (DEFAULT) [address] [place] [address] 61069Fycw Abs#0.9 e60Szkf6.0-0.8[facility] HospitalComment on above:Performed By: #### [id number], [id number] #### [facility] (DEFAULT) [address] [place] [address] 21401Iqgx Abs#4.7 r13Xdgbtl5.5-9.2[facility] HospitalComment on above:Performed By: #### [id number], [id number] #### [facility] (DEFAULT) [address] [place] [address] 08304Rpwuhbqsuof/100 WBC (Bld)66 %Jgnnia28-11Mrtdghuo Hospital Comment on above:Performed By: #### [id number], [id number] #### [facility] (DEFAULT) [address] [place] [address] 90850XYI w/ Auto Diffon 34-77-1141Jnkhmgqbokr distribution width (RBC) [Ratio]14.4 %Pqnzqo78.5-15.0[facility] CenterComment on above: Performed By: #### [id number], [id number] #### [facility] (DEFAULT) [address] [place] [address] 10998Tfrwrajloo (Bld) [Volume fraction]25.9 %Low33.7-40.4 [facility] CenterComment on above:Performed By: #### [id number], [id number] #### [facility] (DEFAULT) [address] [place] [address] 07074Sbrsgkwdxa (Bld) [Mass/Vol]8.8 g/dLLow11.3-15.9[facility] CenterComment on above:Performed By: #### [id number], [id number] #### [facility] (DEFAULT) [address] [place] [address] 10417Gks Diff?AutoInvalid Interpretation CodeUniversity [facility]als [facility] Center Comment on above:Performed By: #### [id number], [id number] #### [facility] (DEFAULT) [address] [place] [address] 95797KTE (RBC) [Entitic mass]31 zxOemigm50-27Qwdqbihv Hospital Comment on above:Performed By: #### [id number], [id number] #### [facility] (DEFAULT) [address] [place] [address] 21322IQWG (RBC) [Mass/Vol]34 g/iUXnitgx45-90Muozzgrx Hospital Comment on above:Performed By: #### [id number], [id number] #### [facility] (DEFAULT) [address] [place] [address] 11516XZQ (RBC) [Entitic vol]91 rWVuawul68-309[facility] Comment on above:Performed By: #### [id number], [id number] #### [facility] (DEFAULT) [address] [place] [address] 30699Zphlqmex91 u76Rpf976-355Eswxvugi HospitalComment on above: Performed By: #### [id number], [id number] #### [facility] (DEFAULT) [address] [place] [address] 56172Gbjajrhz mean volume (Bld) [Entitic vol]9.3 fLNormal 6.3-10.2[facility] HospitalComment on above:Performed By: #### [id number], [id number] #### [facility] (DEFAULT) [address] [place] [address] 31891PTC6.83 b42Udc6.70-5.30[facility] HospitalComment on above: Performed By: #### [id number], [id number] #### [facility] (DEFAULT) [address] [place] [address] 64402MKD3.0 i59Azqcsg0.5-10.5[facility] CenterComment on above: Performed By: #### [id number], [id number] #### [facility] (DEFAULT) [address] [place] [address] 50070EZR Standardon 51-12-0971qFJD Non AA54 mL/min/1.73m2 Invalid Interpretation [facility] HospitalComment on above:Performed By: #### [id number] #### [facility] (DEFAULT) [address] [place] [address] 04313eXVU AA>60Invalid Interpretation [facility] Comment on above:Performed By: #### [id number] #### [facility] (DEFAULT) [address] [place] [address] 88118Waveuxu [Mass/Vol]2.5 g/dLLow3.5-5.0[facility] Hospital Comment on above:Performed By: #### [id number] #### [facility] (DEFAULT) [address] [place] [address] 51556Eusgydv/Globulin [Mass ratio]0.9 {ratio}Low1.4-2.6[facility] HospitalComment on above:Performed By: #### [id number] #### [facility] (DEFAULT) [address] [place] [address] 78443Ffr Phos73 IU/ZBfqmxq10-90Qzoyacsn HospitalComment on above:Performed By: #### [id number] #### [facility] (DEFAULT) [address] [place] [address] 91389XFP [Catalytic activity/Vol]26.0 U/MOlfwdw86.0-54.0 [facility] HospitalComment on above:Performed By: #### [id number] #### [facility] (DEFAULT) [address] [place] [address] 45536WJF [Catalytic activity/Vol]31 U/ESpiddn19-30Gmlsxfgw HospitalComment on above:Performed By: #### [id number] #### [facility] (DEFAULT) [address] [place] [address] 28162Ynld Total0.7 mg/dLNormal0.3-1.2[facility] HospitalComment on above:Performed By: #### [id number] #### [facility] (DEFAULT) [address] [place] [address] 99697Dcivskrbop [Mass/Vol]1.01 mg/dLNormal0.60-1.30[facility] HospitalComment on above:Performed By: #### [id number] #### [facility] (DEFAULT) [address] [place] [address] 09789Wughtzcq (S) [Mass/Vol]2.7 g/dLNormal1.5-4.3[facility] HospitalComment on above:Performed By: #### [id number] #### [facility] (DEFAULT) [address] [place] [address] 63673Qexlgitjge524 mOsm/LInvalid Interpretation CodeHolzer Hospital HospitalComment on above:Performed By: #### [id number] #### [facility] (DEFAULT) [address] [place] [address] 24098Ocxyiim [Mass/Vol]5.2 g/dLLow6.5-8.1[facility] Comment on above:Performed By: #### [id number] #### [facility] (DEFAULT) [address] [place] [address] 29162Aqgf nitrogen [Mass/Vol]27 mg/dLHigh8-26[facility] Comment on above:Performed By: #### [id number] #### [facility] (DEFAULT) [address] [place] [address] 08311Rgty nitrogen/Creatinine [Mass ratio]26.7 mg/mgHigh 4.6-16.2[facility] HospitalComment on above:Performed By: #### [id number] #### [facility] (DEFAULT) [address] [place] [address] 00136Yzgwi gap [Moles/Vol]8.2 mmol/LNormal5.0-19.0[facility] HospitalComment on above:Performed By: #### [id number] #### [facility] (DEFAULT) [address] [place] [address] 97399Asehtjh [Mass/Vol]8.2 mg/dLLow8.9-10.3[facility] Comment on above:Performed By: #### [id number] #### [facility] (DEFAULT) [address] [place] [address] 03361Dfjytmke [Moles/Vol]108 mmol/TEoauza358-769Qmplblkd HospitalComment on above:Performed By: #### [id number] #### [facility] (DEFAULT) [address] [place] [address] 54942EB8 [Moles/Vol]23 mmol/GXxcjpp43-94Qxjtemlw Hospital Comment on above:Performed By: #### [id number] #### [facility] (DEFAULT) [address] [place] [address] 05742Bzmjkpt [Mass/Vol]128.0 mg/mFDdyb74.0-118.0[facility] HospitalComment on above:Performed By: #### [id number] #### [facility] (DEFAULT) [address] [place] [address] 61340Bevuoxzrq [Moles/Vol]4.2 mmol/LNormal3.6-5.1[facility] HospitalComment on above:Performed By: #### [id number] #### [facility] (DEFAULT) [address] [place] [address] 22272Zhaavq [Moles/Vol]135.0 mmol/JXti831.0-144.0[facility] CenterComment on above:Performed By: #### [id number] #### [facility] (DEFAULT) [address] [place] [address] 84323JLOum 91-40-6050EKG56.5 mg/dLHigh<=0.5[facility] Comment on above:Performed By: #### [id number] #### [facility] (DEFAULT) [address] [place] [address] 71549ATUI Glucose Levelon 06-93-8882Dgdeipn [Mass/Vol]205 mg/dL Orrz48-290Useotbfk HospitalComment on above:Result Comment: OPR_ID=IN_LIST,TGC FLAG = False,Meter:[id number] Ball Rolling Machine Operator:[id number] Diana VasquezPerformed By: #### [id number] #### [facility] (DEFAULT) [address] [place] [address] 87943Xvtxusd [Mass/Vol]146 mg/cXXzks76-637Blqynpve[address] Comment on above:Result Comment: OPR_ID=IN_LIST,TGC FLAG = False,Meter:[id number] Ball Rolling Machine Operator:[id number] Kayden TinaPerformed By: #### [id number] #### [facility] (DEFAULT) [address] [place] [address] 48233Dnmsygg [Mass/Vol]205 mg/qTOgtq98-475Wncczclf[address] Comment on above:Result Comment: OPR_ID=IN_LIST,TGC FLAG = False,Meter:[id number] Ball Rolling Machine Operator:[id number] Kayden TinaPerformed By: #### [id number], [id number] #### [facility] (DEFAULT) [address] [place] [address] 64680Cdmaxka [Mass/Vol]129 mg/fLCmmr54-596Snwgtevb[address] Comment on above:Result Comment: OPR_ID=IN_LIST,TGC FLAG = False,Meter:[id number] Ball Rolling Machine Operator:361Rex Driver AmandaPerformed By: #### [id number] #### [facility] (DEFAULT) [address] [place] [address] 69652Rmttdgfo Note - Nurseon 28-00-5353Xyumtkiu Note - Nurse Dressing to left hip changed per order. Incision with sutures, intact and well approximated. No drainage or odor noted, incision pink in color. Dry, clean dressing applied, patient tolerate well. [Electronically Signed on: 12/26/2023 10:14 EDT] Yarely Monique RN [Verified on: 12/26/2023 10:14 EDT] Yarely Monique RNNormalUniversity Hospitals Lake West Medical CenterTnI HSon 46-37-2031Lyhfnfsg I High Hgdkxvgzanl88.1 pg/mLCritically abnormal<=15.0[facility] HospitalComment on above: Result Comment: Critical result TNIHS 34.1 pg/mL called to and read back by Alicia Ascencio at 26-Dec-2023 06:28 by Urban.Performed By: #### [id number] #### [facility] (DEFAULT) [address] [place] [address] 78830.Auto Diff 1on 21-48-6631Ujkm [place] %13 %High1-12[facility] HospitalComment on above:Performed By: #### [id number], [id number] ####[facility] (DEFAULT)[address] [place] [address] 68723Ilpn Abs#0.1 v85Bnoapl 0.0-0.2[facility] HospitalComment on above:Performed By: #### [id number], [id number] ####[facility] (DEFAULT)[address] [place] [address] 80829 Basophils/100 WBC (Bld)0.6 %Normal0.2-2.0[facility] HospitalComment on above: Performed By: #### [id number], [id number] ####[facility] (DEFAULT)[address] [place] [address] 73928Erg Abs#0.0 r13Wpmpyp9.0-0.4[facility] HospitalComment on above:Performed By: #### [id number], [id number] ####[facility] (DEFAULT)[address] [place] [address] 51341Mcklxsgecno/100 WBC (Bld)0.5 %Low0.9-4.0 [facility] HospitalComment on above:Performed By: #### [id number], [id number] ####[facility] (DEFAULT)[address] [place] [address] 70020Trugt Abs# 1.2 o20Cce7.3-2.9[facility] HospitalComment on above:Performed By: #### [id number], [id number] ####[facility] (DEFAULT)[address] [place] [address] 17590 Lymphocytes/100 WBC (Bld)14 %Krayxz91-55Gtkxhddc HospitalComment on above: Performed By: #### [id number], [id number] ####[facility] (DEFAULT)[address] [place] [address] 91484Dxja Abs#1.1 a71Qgxj4.0-0.8[facility] HospitalComment on above:Performed By: #### [id number], [id number] ####[facility] (DEFAULT)[address] [place] [address] 11719Esbn Abs#6.2 p59Imjazb4.5-9.2[facility] HospitalComment on above:Performed By: #### [id number], [id number] ####[facility] (DEFAULT)[address] [place] [address] 62438Jgprimxpxnu/100 WBC (Bld)72 %Xtekrf50-12Hvkjbxsi HospitalComment on above:Performed By: #### [id number], [id number] ####[facility] (DEFAULT)[address] [place] [address] 30392AGP w/ Auto Diffon 64-10-7215Kzyjwteqbmx distribution width (RBC) [Ratio]14.5 %Tiunyz58.5-15.0[facility] Medical CenterComment on above:Performed By: #### [id number], [id number] #### [facility] (DEFAULT) [address] [place] [address] 27402Kzntfcyktz (Bld) [Volume fraction]25.5 %Low33.7-40.4 [facility] CenterComment on above:Performed By: #### [id number], [id number] #### [facility] (DEFAULT) [address] [place] [address] 36755Odkcdfqsks (Bld) [Mass/Vol]8.8 g/dLLow11.3-15.9[facility] Medical CenterComment on above:Performed By: #### [id number], [id number] #### [facility] (DEFAULT) [address] [place] [address] 59089Mal Diff?AutoInvalid Interpretation CodeUniversity Hospitals [facility] Center Comment on above:Performed By: #### [id number], [id number] #### [facility] (DEFAULT) [address] [place] [address] 19715EPJ (RBC) [Entitic mass]31 lrKdndip36-73Twwfqtvv Hospital Comment on above:Performed By: #### [id number], [id number] #### [facility] (DEFAULT) [address] [place] [address] 17254VWDF (RBC) [Mass/Vol]34 g/wYTxvzfn44-16Dkcmcvli Hospital Comment on above:Performed By: #### [id number], [id number] #### [facility] (DEFAULT) [address] [place] [address] 75507HEU (RBC) [Entitic vol]90 hFDeaack70-267Nxznymba Hospital Comment on above:Performed By: #### [id number], [id number] #### [facility] (DEFAULT) [address] [place] [address] 23046Tzrnuhwe32 f65Zcq938-093Jxfjktes HospitalComment on above: Performed By: #### [id number], [id number] #### [facility] (DEFAULT) [address] [place] [address] 59633Fxjwiuru mean volume (Bld) [Entitic vol]9.4 fLNormal 6.3-10.2[facility] HospitalComment on above:Performed By: #### [id number], [id number] #### [facility] (DEFAULT) [address] [place] [address] 48281BQT0.83 k09Jvy9.70-5.30[facility] HospitalComment on above: Performed By: #### [id number], [id number] #### [facility] (DEFAULT) [address] [place] [address] 27656TZC4.6 u48Kfzovx1.5-10.5[facility] HospitalComment on above: Performed By: #### [id number], [id number] #### [facility] (DEFAULT) [address] [place] [address] 88828KOV Standardon 89-47-0160eFLD Non AA40 mL/min/1.73m2 Invalid Interpretation CodeHolzer Hospital HospitalComment on above:Performed By: #### [id number], [id number] #### [facility] (DEFAULT) [address] [place] [address] 02902wMLW AA48 mL/min/1.49a6Aaqqkus Interpretation [facility] HospitalComment on above:Performed By: #### [id number], [id number] #### [facility] (DEFAULT) [address] [place] [address] 96748Yfqgyni [Mass/Vol]2.6 g/dLLow3.5-5.0[facility] Hospital Comment on above:Performed By: #### [id number], [id number] #### [facility] (DEFAULT) [address] [place] [address] 12257Vbrudfg/Globulin [Mass ratio]1.0 {ratio}Low1.4-2.6[facility] HospitalComment on above:Performed By: #### [id number], [id number] #### [facility] (DEFAULT) [address] [place] [address] 20100Lxs Phos81 IU/QGxzsek37-95Kwegtdlc HospitalComment on above:Performed By: #### [id number], [id number] #### [facility] (DEFAULT) [address] [place] [address] 41208BVO [Catalytic activity/Vol]30.0 U/DCrvzix76.0-54.0 [facility] HospitalComment on above:Performed By: #### [id number], [id number] #### [facility] (DEFAULT) [address] [place] [address] 29938Mgthz gap [Moles/Vol]13.0 mmol/LNormal5.0-19.0[facility] HospitalComment on above:Performed By: #### [id number], [id number] #### [facility] (DEFAULT) [address] [place] [address] 05463BQX [Catalytic activity/Vol]38 U/EJmdvch17-52Tbsuuuzt HospitalComment on above:Performed By: #### [id number], [id number] #### [facility] (DEFAULT) [address] [place] [address] 42742Hkex Total0.6 mg/dLNormal0.3-1.2[facility] HospitalComment on above:Performed By: #### [id number], [id number] #### [facility] (DEFAULT) [address] [place] [address] 17246Vryqzpq [Mass/Vol]8.4 mg/dLLow8.9-10.3[facility] Hospital Comment on above:Performed By: #### [id number], [id number] #### [facility] (DEFAULT) [address] [place] [address] 16953Risvqwen [Moles/Vol]104 mmol/UNnrwdm625-374Igckdbfj HospitalComment on above:Performed By: #### [id number], [id number] #### [facility] (DEFAULT) [address] [place] [address] 69291VH1 [Moles/Vol]20 mmol/KNmm72-41Gzhaebvz HospitalComment on above:Performed By: #### [id number], [id number] #### [facility] (DEFAULT) [address] [place] [address] 10886Iagunmyqqw [Mass/Vol]1.31 mg/dLHigh0.60-1.30[facility] HospitalComment on above:Performed By: #### [id number], [id number] #### [facility] (DEFAULT) [address] [place] [address] 75205Dmnztxkn (S) [Mass/Vol]2.6 g/dLNormal1.5-4.3[facility] HospitalComment on above:Performed By: #### [id number], [id number] #### [facility] (DEFAULT) [address] [place] [address] 24729Ocbmkwk [Mass/Vol]127.0 mg/sDBkmh58.0-118.0[facility] HospitalComment on above:Performed By: #### [id number], [id number] #### [facility] (DEFAULT) [address] [place] [address] 68328Pesqcnrpeu778 mOsm/LInvalid Interpretation CodeHolzer Hospital HospitalComment on above:Performed By: #### [id number], [id number] #### [facility] (DEFAULT) [address] [place] [address] 96327Mjgihckql [Moles/Vol]4.0 mmol/LNormal3.6-5.1[facility] HospitalComment on above:Performed By: #### [id number], [id number] #### [facility] (DEFAULT) [address] [place] [address] 15750Rzixmci [Mass/Vol]5.2 g/dLLow6.5-8.1[facility] Hospital Comment on above:Performed By: #### [id number], [id number] #### [facility] (DEFAULT) [address] [place] [address] 39324Cuqdux [Moles/Vol]133.0 mmol/LMxy699.0-144.0[facility] HospitalComment on above:Performed By: #### [id number], [id number] #### [facility] (DEFAULT) [address] [place] [address] 93240Dqqp nitrogen [Mass/Vol]39 mg/dLHigh8-26[facility] Hospital Comment on above:Performed By: #### [id number], [id number] #### [facility] (DEFAULT) [address] [place] [address] 37121Ckfr nitrogen/Creatinine [Mass ratio]29.7 mg/mgMon [facility] 4.6-16.2MAdena Fayette Medical CenterComment on above:Performed By: #### [id number], [id number] #### [facility] (DEFAULT) [address] [place] [address] 93545POST Glucose Levelon 50-29-0135Bfpaxnk [Mass/Vol]246 mg/dL [address] StreetComment on above:Result Comment: OPR_ID=IN_LIST,TGC FLAG = False,Meter:[id number] Ball Rolling Machine Operator:Say Diana VasquezPerformed By: #### [id number] #### [facility] (DEFAULT) [address] [place] [address] 48589Vclgwbp [Mass/Vol]149 mg/oEKzum04-659Kdyeijfm[address] Comment on above:Result Comment: OPR_ID=IN_LIST,TGC FLAG = False,Meter:[id number] Ball Rolling Machine Operator:[id number] Kayden TinaPerformed By: #### [id number] #### [facility] (DEFAULT) [address] [place] [address] 91458Kslqaqe [Mass/Vol]263 mg/fVAcfy73-489Ujxgqpri[address] Comment on above:Result Comment: OPR_ID=IN_LIST,TGC FLAG = False,Meter:[id number] Ball Rolling Machine Operator:[id number] Kayden TinaPerformed By: #### [id number] #### [facility] (DEFAULT) [address] [place] [address] 62881Dgqtldo [Mass/Vol]109 mg/oZGqiaro30-291Arsecgig[address] Comment on above:Result Comment: OPR_ID=IN_LIST,TGC FLAG = False,Meter:[id number] Ball Rolling Machine Operator:[id number] Kayden TinaPerformed By: #### [id number], [id number] #### [facility] (DEFAULT) [address] [place] [address] 08183Qfvqufzje By: #### [id number] #### [facility] (DEFAULT) [address] [place] [address] 99178FpU HSon 20-87-6614Izftcqpy I High Saoukxbuycr39.3 pg/mL Critically abnormal<=15.0[facility] HospitalComment on above:Result Comment: Critical result TNIHS 35.3 pg/mL called to and read back by Alicia ascencio at 25-Dec-2023 06:24 by Urban.Performed By: #### [id number], [id number] #### [facility] (DEFAULT) [address] [place] [address] 01402LW w Culture if Ind Standardon 39-27-5937Wcfqhsveom UA NormalHolzer Hospital HospitalComment on above:Performed By: #### [id number] #### [facility] (DEFAULT) [address] [place] [address] 21574Gcine (U)YellowNormTrumbull Memorial Hospital HospitalComment on above: Performed By: #### [id number] #### [facility] (DEFAULT) [address] [place] [address] 91839Rotqzop?Not IndicatedInvalid Interpretation CodeHolzer Hospital HospitalComment on above:Result Comment: Result created by rule GL_MAGR_ADD_UA_CULT1Performed By: #### [id number] #### [facility] (DEFAULT) [address] [place] [address] 48720Futnywm (U) [Mass/Vol]NegativeMercy Health St[facility] Hospital Comment on above:Performed By: #### [id number] #### [facility] (DEFAULT) [address] [place] [address] 77617Rdwhuzs Ql (U)NegativeNoLutheran Hospital HospitalComment on above:Performed By: #### [id number] #### [facility] (DEFAULT) [address] [place] [address] 89614Noxsl?Not IndicatedInvalid Interpretation CodeHolzer Hospital HospitalComment on above:Result Comment: Result created by rule GL_MAGR_ADD_UA_MICROPerformed By: #### [id number] #### [facility] (DEFAULT) [address] [place] [address] 05478HB BilirubinNegativeNormalNdgrmercy health [facility] hospital HospitalComment on above:Performed By: #### [id number] #### [facility] (DEFAULT) [address] [place] [address] 74897PC BloodNegativeNormalNEGATIVENdgrmercy health urbana hospital HospitalComment on above:Performed By: #### [id number] #### [facility] (DEFAULT) [address] [place] [address] 45187XA ClarityCLEARNormalCLEARHolzer Hospital HospitalComment on above:Performed By: #### [id number] #### [facility] (DEFAULT) [address] [place] [address] 41426ZT Leuk EstNegativeNormalNEGATIVEHolzer Hospital HospitalComment on above:Performed By: #### [id number] #### [facility] (DEFAULT) [address] [place] [address] 25497ZF NitriteNegativeNormalNEGATIVEHolzer Hospital HospitalComment on above:Performed By: #### [id number] #### [facility] (DEFAULT) [address] [place] [address] 72145ZW pH6.4Awsyfl9-7Vgirgwsn HospitalComment on above: Performed By: #### [id number] #### [facility] (DEFAULT) [address] [place] [address] 53506YY ProteinNegativeNormalNEGATIVEHolzer Hospital HospitalComment on above:Performed By: #### [id number] #### [facility] (DEFAULT) [address] [place] [address] 07627CX Spec Grav1.315Nmtjre8.001-1.035[facility] HospitalComment on above:Performed By: #### [id number] #### [facility] (DEFAULT) [address] [place] [address] 45576CU Urobilinogen0.2 mg/dLNormal0.2-1.0[facility] Hospital Comment on above:Performed By: #### [id number] #### [facility] (DEFAULT) [address] [place] [address] 12191Rnnvr SourceClean CatchNormalMagruder HospitalComment on above:Performed By: #### [id number] #### [facility] (DEFAULT) [address] [place] [address] 07379BP Chest 1 View Frontalon 09-34-0436EP Chest 1 View FrontalEXAMINATION: XR Chest 1 View Frontal HISTORY: Fever [...] Nikko Barbosa MD 12/25/23 8:40 am Technologist: [facility].Auto Diff 1on 32-63-5803Yxez [place] %14 %High1-12[facility] HospitalComment on above:Performed By: #### [id number], 13394081, [id number] ####[facility] (DEFAULT)[address] [place] [address] 68820Vmgx Abs#0.0 a72Ryoazb7.0-0.2Magrmercy [facility] HospitalComment on above: Performed By: #### 9993469, 77868261, [id number] ####[facility] (DEFAULT)[address] [place] [address] 20406Ahdgllmkw/100 WBC (Bld)1.0 % Normal0.2-2.0[facility] HospitalComment on above:Performed By: #### 7474070, 11681994, [id number] ####[facility] (DEFAULT)[address] [place] [address] 61227Rsa Abs#0.0 a08Beyqqc4.0-0.4[facility] HospitalComment on above: Performed By: #### 7524359, 96594379, [id number] ####[facility] (DEFAULT)[address] [place] [address] 67425Lskwvsbiojz/100 WBC (Bld)1.0 % Normal0.9-4.0[facility] HospitalComment on above:Performed By: #### [id number], 25727883, [id number] ####[facility] (DEFAULT)[address] [place] [address] 08860Lgrnp Abs#0.7 f55Ypb0.3-2.9[facility] HospitalComment on above: Performed By: #### [id number], 80279787, [id number] ####[facility] (DEFAULT)[address] [place] [address] 94757Yonecxdrkat/100 WBC (Bld)18 % Pjvdqa68-16Useprgro HospitalComment on above:Performed By: #### 9874695, 31050187, [id number] ####[facility] (DEFAULT)[address] [place] [address] 34815Bsuc Abs#0.6 n10Jfwqwq2.0-0.8[facility] HospitalComment on above: Performed By: #### 5237455, 99937237, [id number] ####[facility] (DEFAULT)[address] [place] [address] 56320Nepz Abs#2.7 q63Pygwui3.5-9.2 [facility] HospitalComment on above:Performed By: #### 7172849, 15168843, [id number] ####[facility] (DEFAULT)[address] [place] [address] 98706Ielyubqjyff/100 WBC (Bld)66 %Fcvnwj08-27Bggmkbnh HospitalComment on above: Performed By: #### 0411326, 91012697, 3640690469 ####[facility] (DEFAULT)[address] [place] [address] 77307SNP w/ Auto Diffon 12-24-2023 Erythrocyte distribution width (RBC) [Ratio]14.4 %Dhhehl75.5-15.0[facility] CenterComment on above:Order Comment: I spoke with Arabella Denis RN and asked if I would get the patient's blood work before 0600. Arabella had said that it was okay to do so. 12/24/2023 05:35:43 EDTPerformed By: #### 5120168, 21181384, [id number] ####[facility] (DEFAULT)[address] [place] [address] 95589Eerkvqafpc (Bld) [Volume fraction]25.8 %Low33.7-40.4[facility] Comment on above:Order Comment: I spoke with Arabella Denis RN and asked if I would get the patient's blood work before 0600. Arabella had said that it was okay to do so. 12/24/2023 05:35:43 EDTPerformed By: #### 9258116, 77063106, [id number] ####[facility] (DEFAULT)[address] [place] [address] 18576Jzgwpfhybx (Bld) [Mass/Vol]8.6 g/dLLow11.3-15.9[facility] CenterComment on above:Order Comment: I spoke with Arabella Denis RN and asked if I would get the patient's blood work before 0600. Arabella had said that it was okay to do so. 12/24/2023 05:35:43 EDTPerformed By: #### [id number], 66180403, [id number] ####[facility] (DEFAULT)[address] [place] [address] 40127Hyt Diff? AutoInvalid Interpretation CodeUniversity Hospitals Lake West Medical CenterComment on above:Order Comment: I spoke with Arabella Denis RN and asked if I would get the patient's blood work before 0600. Arabella had said that it was okay to do so. 12/24/2023 05:35:43 EDT Performed By: #### [id number], 74616845, [id number] ####[facility] (DEFAULT)[address] [place] [address] 36506TXY (RBC) [Entitic mass]30 pg Ebiyvc91-41Yrgsywsm HospitalComment on above:Order Comment: I spoke with Arabella Denis RN and asked if I would get the patient's blood work before 0600. Arabella had said that it was okay to do so. 12/24/2023 05:35:43 EDTPerformed By: #### [id number], 14263519, [id number] ####[facility] (DEFAULT)[address] [place] [address] 78067OSAQ (RBC) [Mass/Vol]33 g/tLVfsgqv27-21Njvgybho HospitalComment on above:Order Comment: I spoke with Arabella Denis RN and asked if I would get the patient's blood work before 0600. Arabella had said that it was okay to do so. 12/24/2023 05:35:43 EDTPerformed By: #### 3418424, 99150961, [id number] ####[facility] (DEFAULT)[address] [place] [address] 34131VMR (RBC) [Entitic vol]92 oONloayq10-237Vimwyftu HospitalComment on above: Order Comment: I spoke with Arabella Denis RN and asked if I would get the patient's blood work before 0600. Arabella had said that it was okay to do so. 12/24/2023 05:35:43 EDTPerformed By: #### [id number], 91719285, [id number] ####[facility] (DEFAULT)[address] [place] [address] 79874Avvafpry90 h81Qqj701-640Yznjizfn HospitalComment on above:Order Comment: I spoke with Arabella Denis RN and asked if I would get the patient's blood work before 0600. Arabella had said that it was okay to do so. 12/24/2023 05:35:43 EDTPerformed By: #### 9587206, 53718007, [id number] ####[facility] (DEFAULT)[address] [place] [address] 78444Hslixwxl mean volume (Bld) [Entitic vol]9.9 fLNormal 6.3-10.2MAdena Fayette Medical CenterComment on above:Order Comment: I spoke with Arabella Denis RN and asked if I would get the patient's blood work before 0600. Arabella had said that it was okay to do so. 12/24/2023 05:35:43 EDTPerformed By: #### 0517549, 64362990, [id number] ####[facility] (DEFAULT)[address] [place] [address] 68051FQG2.80 m94Uov3.70-5.30[facility] CenterComment on above:Order Comment: I spoke with Arabella Denis RN and asked if I would get the patient's blood work before 0600. Arabella had said that it was okay to do so. 12/24/2023 05:35:43 EDTPerformed By: #### 6245005, 40046594, [id number] ####[facility] (DEFAULT)[address] [place] [address] 04278UQH3.1 x10 Normal3.5-10.5[facility] Medical CenterComment on above:Order Comment: I spoke with Arabella Denis RN and asked if I would get the patient's blood work before 0600. Arabella had said that it was okay to do so. 12/24/2023 05:35:43 EDTPerformed By: #### [id number], 98680381, [id number] ####[facility] (DEFAULT)[address] [place] [address] 92181Ynebijunhjp Panel Standardon 48-97-8123Yjkil gap [Moles/Vol]10.2 mmol/LNormal5.0-19.0[facility] CenterComment on above:Order Comment: I spoke with Arabella Denis RN and asked if I would get the patient's blood work before 0600. Arabella had said that it was okay to do so. 12/24/2023 05:35:43 EDTPerformed By: #### [id number], 28518838, [id number] ####[facility] (DEFAULT)[address] [place] [address] 17015Qdpihals [Moles/Vol]107 mmol/EEvhixy291-750Nhuzarth HospitalComment on above:Order Comment: I spoke with Arabella Denis RN and asked if I would get the patient's blood work before 0600. Arabella had said that it was okay to do so. 12/24/2023 05:35:43 EDT Performed By: #### [id number], 31599747, [id number] ####[facility] (DEFAULT)[address] [place] [address] 14082TL7 [Moles/Vol]21 mmol/LNormal 21-32[facility] HospitalComment on above:Order Comment: I spoke with Arabella Denis RN and asked if I would get the patient's blood work before 0600. Arabella had said that it was okay to do so. 12/24/2023 05:35:43 EDTPerformed By: #### 4583757, 61432769, [id number] ####[facility] (DEFAULT)[address] [place] [address] 61475Rjfvgdrei [Moles/Vol]4.2 mmol/LNormal3.6-5.1MAdena Fayette Medical CenterComment on above:Order Comment: I spoke with Arabella Denis RN and asked if I would get the patient's blood work before 0600. Arabella had said that it was okay to do so. 12/24/2023 05:35:43 EDTPerformed By: #### 3622875, 40307717, [id number] ####[facility] (DEFAULT)[address] [place] [address] 41708Dieafa [Moles/Vol]134.0 mmol/USjc588.0-144.0[facility] HospitalComment on above:Order Comment: I spoke with Arabella Denis RN and asked if I would get the patient's blood work before 0600. Arabella had said that it was okay to do so. 12/24/2023 05:35:43 EDTPerformed By: #### [id number], 10233974, [id number] ####[facility] (DEFAULT)[address] [place], [place] [address]KNIY Postoperative Recordon 26-55-0139NMOJ Postoperative RecordMAGR Phase II Record Summary Primary Physician: KEITH GABRIEL DO Finalized Date/Time: 12/24/23 06:58:45 Pt. Name: ASHLEE BANERJEE /Sex: 1950 FEMALE Med Rec #: [id number] Physician: KEITH GABRIEL DO Financial #: [id number] Pt. Type: D Room/Bed: [facility] Admit/Disch: 12/23/23 05:40:58 - Institution: Phase II Case Times MAGR Pre-Care Text: Patient is free from s/s of injury. Patient remains free from compromised physical state related tosurgery or anesthesia. Patient comfort maintained. Patient/family verbalize [...] Signatures Signed By: Hailee Rosa RN 12/24/23 06:58White HospitalNutrition Noteon 12-24-2023 Nutrition NotePt admitted for scheduled Lt hip surgery. Diet [...] and colace in place. Other than age greaterthan 65y w/ surgery, pt appears at low nutrition risk. Will monitor intake, wts, labs.[facility] Noteon 12-28-3752Gzbakbck NoteThe following medications(s) has been reviewed for renal dose adjustment per P &T protocol based on the patient's current creatinine clearance: Medication: Enoxaparin 30mg subq daily Estimated CrCl: 29.7 ml/min _ (most recent cr from 11/24/23) Action: No change required Changes Made: [Electronically Signed on: 12/24/2023 16:46 EDT] Kieran Alexandra PharmD [Verified on: 12/24/2023 16:46 EDT] Kieran Alexandra PharmDNGreen Cross Hospitaless Note - Nurseon 12-24-2023 Progress Note - NurseDressing to left hip removed- scant amount of old drainage on dressing. Wound intact with stitches,well approximated. Minimal bruising and swelling noted. Redressed with optifoam. Patient tolerated well. [Electronically Signed on: 12/24/2023 13:58 EDT] Millicent Henry RN [Verified on: 12/24/2023 13:58 EDT] Millicent Henry RNNoRegency Hospital Cleveland Westess Note - NursePatient complains of pain in middle of chest since swallowing pills, vitals checked- B/P 117/57 pulse [address]%. Dr. Adame in room and aware of same/ EKG ordered [Electronically Signed on: 12/24/2023 11:41 EDT] Millicent Henry RN [Verified on: 12/24/2023 11:41 EDT] Millicent Henry [facility] Note - NursePatient complaining of nausea and the feeling that [...] [Verified on: 12/24/2023 10:39 EDT] Millicent Henry [facility] Note - NurseAttempted to ambulate patient to restroom as she [...] time. [Electronically Signed on: 12/24/2023 02:55 EDT] Carstensen, Lena RN [Verified on: 12/24/2023 02:55 EDT] Lena Persaud RNNormalMagrmercy health [facility] hospital HospitalTnI HSon 96-07-2415Uaydzthq I High Vddwcwucwxz23.1 pg/mLCritically abnormal<=15.0Magruder HospitalComment on above: Result Comment: Critical result TNIHS 41.1 pg/mL called to and read back by Adam Lynch at 24-Dec-2023 19:55 by Urban.Performed By: #### [id number], [id number] #### [facility] (DEFAULT) [address] [place] [address] 36886Hmwapsrw I High Wtlfuplybyj25.3 pg/mLCritically abnormal <=15.0Magr[facility] HospitalComment on above:Result Comment: Critical result TNIHS 45.3 pg/mL called to and read back by Adam Lynch at 24-Dec-2023 14:45 by renetta.Performed By: #### [id number], [id number] #### [facility] (DEFAULT) [address] [place] [address] 99273.Auto Diff 1on 28-60-5203Wfgv [place] %13 %High1-12[facility]uder HospitalComment on above:Performed By: #### 62516178, 05527518, 17794303, 5125689, [id number], 0844690 ####[facility](DEFAULT)[address] [place] [address] 46899Dlmj Abs#0.0 v99Wzfolc6.0-0.2[facility] HospitalComment on above: Performed By: #### 09930616, 64326409, 06128834, 9837233, 4483392839, 6642335 ####[facility](DEFAULT)[address] [place] [address] 18471 Basophils/100 WBC (Bld)0.7 %Normal0.2-2.0Mag[facility] HospitalComment on above: Performed By: #### 34448282, 24491639, 92794153, 4940992, 4472634175, 5157425 ####[facility](DEFAULT)[address] [place] [address] 20232Mvs Abs#0.1 s18Htqgom2.0-0.4[facility] HospitalComment on above:Performed By: #### 16307182, 10550338, 16048025, 3044768, 7133817653, 8321473 ####[facility] (DEFAULT)[address] [place] [address] 67969Rgtreffuryy/100 WBC (Bld)4.9 % High0.9-4.0[facility] HospitalComment on above:Performed By: #### 33838543, 13387890, 90381360, 6940973, 5472456384, 8864521 ####[facility] (DEFAULT)[address] [place] [address] 42912Ktdzv Abs#0.9 i81Bfm8.3-2.9 [facility] HospitalComment on above:Performed By: #### 35066378, 70276575, 53984093, 8125364, 6311486222, 8947154 ####[facility](DEFAULT)[address] [place] [address] 10549Yftofiubuli/100 WBC (Bld)24 %Zspkjl26-61Aeuuaszb HospitalComment on above:Performed By: #### 60708150, 15471573, 15889212, 0915683, 8010327258, 1158038 ####[facility](DEFAULT)[address] [place] [address] 58147Qynh Abs#0.4 c96Mzoxtv4.0-0.8Mag[facility] HospitalComment on above: Performed By: #### 73212877, 56321202, 77408139, 4445727, 1761767990, 7767225 ####[facility](DEFAULT)[address] [place] [address] 63615Phjr Abs# 2.2 v94Yapbaz3.5-9.2Msub[facility] HospitalComment on above:Performed By: #### 31728989, 69173190, 65734686, 8610575, 6176224531, 6694180 ####[facility] (DEFAULT)[address] [place] [address] 96720Axuhzzmvcgs/100 WBC (Bld)58 % Niwbvv61-12Felxyywv HospitalComment on above:Performed By: #### 85723357, 07216098, 42359047, 9141777, 6177037218, 2763334 ####[facility] (DEFAULT)[address] [place] [address] 00730BWSTnix 73-35-5156JGX and [facility] Nom (Bld)Hx Check: Not Found Anti-A: 4+ Anti-B: 0 Anti-D: 4+ DCon: NT A1: 0 B: 4+ ABORh Interp: A POSInvalid Interpretation [facility] HospitalComment on above: Performed By: #### 92331894, 71857452, 67014809, 3412090, 9517093929, 6930259 ####[facility](DEFAULT)[address] [place] [address] 71929NVQIh Retypeon 69-53-1799GTB and group Nom (Bld)Ordered by Discern. Anti-A: 4+ Anti-B: 0 Anti-D: 4+ DCon: NT A1: 0 B: 4+ ABORh Retype: A POSInvalid Interpretation [facility] HospitalComment on above: Performed By: #### 86876052, 79422069, 57630409, 6692799, 1846826022, 4228599 ####[facility](DEFAULT)[address] [place] [address] 79841PSIK Gelon 47-75-5701LUZJ GelNegativeNormalUniversity Hospitals Lake West Medical CenterComment on above:Performed By: #### 06860314, 60510739, 71251513, 2426062, 5787455409, 6431227 ####[facility](DEFAULT[address] [address]Vimsvabzno Noteon 69-30-3918Sjqrmlbvsz NotePatient: ASHLEE BANERJEE Age: 73 years Sex: FEMALE [...] 06:15) Heart Rate Monitored 71 bpm (DEC 22:00) Resp Rate 16 br/min (DEC 22:00) SBP [...] [Verified on: 12/23/2023 11:11 EDT] George Beverly MDWhite HospitalAnesthesia NotePatient: ASHLEE BANERJEE Age: 73 years Sex: FEMALE [...] with myelopathy and radiculopathy / SNOMED CT 0129005609 / Confirmed Diabetes / SNOMED CT 752522803 / Confirmed Gallstones / SNOMED CT 148837893 / Confirmed History of colon polyps / SNOMED CT 4181108419 / Confirmed HTN (hypertension) / SNOMED CT 3098671915 / Confirmed Hypothyroidism / SNOMED CT 05028344 / Confirmed Hernia, incisional / SNOMED CT 722421927 / Confirmed Overactive bladder / SNOMED CT 4828728322 / Confirmed 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 Comments: 11/24/2023 14:39 Swati Elizalde RN pins placed to open spinal canal Hysterectomy (116176845). Arthroplasty of right knee (6663112627). Tonsillectomy and adenoidectomy (999859659). Excision of ganglion cyst of hand (3703755326). Arthroplasty of left knee (7493309842). Colonoscopy (572380721). Rotator cuff repair (739229673). Comments: 11/24/2023 14:57 Swati Elizalde RN Bilateral shoulders Repair of incisional hernia (746064927). Social History Electronic Cigarette/Vaping Assessment Electronic Cigarette [...] 06:15) Heart Rate Peripheral 74 bpm (DEC 22:15) Resp Rate 16 br/min (DEC 22:15) SBP [...] Oriented. Review / Management Laboratory Results Plan [place] [employer]hesi[employer]#(ASA) physical status classification: Class III. Anesthetic Preoperative Plan Anesthesia: General. , Regional Fascia Iliaca (SIFI) block (more content not included)...Normal [facility] IDon [id number] Bank IDBBID: [id number] Interpretation CodeUniversity Hospitals Lake West Medical CenterComment on above:Performed By: #### [id number], 25555842, 01861844, 5065147, 3401954807, 2700215 ####[facility] (DEFAULT)[address] [place] [address] 32569JUZ w/ Auto Diffon 12-23-2023 Erythrocyte distribution width (RBC) [Ratio]14.6 %Htovxg66.5-15.0[facility] Medical CenterComment on above:Performed By: #### 26282870, 37557970, 75709735, 0041083, 5401966955, 0048199 ####[facility](DEFAULT)[address] [place] [address] 31485Ydywoivajb (Bld) [Volume fraction]29.4 %Low33.7-40.4[facility] Medical CenterComment on above:Performed By: #### 99437649, 44277157, 13228029, 1826549, 4709885312, 5146476 ####[facility](DEFAULT)[address] [place] [address] 78513Qknwhcxcfl (Bld) [Mass/Vol]10.1 g/dLLow11.3-15.9[facility] Medical CenterComment on above:Performed By: #### 01566504, 25008381, 66882369, 7176676, 6012179830, 4461694 ####[facility](DEFAULT)[address] [place] [address] 73913Cxv Diff?AutoInvalid Interpretation CodeUniversity Hospitals Lake West Medical Center Comment on above:Performed By: #### 41940314, 03596648, 33711154, 6826427, 1068737764, 8385941 ####[facility](DEFAULT)[address] [place] [address] 75269OYH (RBC) [Entitic mass]32 haFwkvfg10-49Afmfsxhs HospitalComment on above:Performed By: #### 94455456, 11442739, 02557434, 8545195, 2746585003, 2786594 ####[facility](DEFAULT)[address] [place] [address] 90753 MCHC (RBC) [Mass/Vol]34 g/tNWpkzxt30-73Asudgldn HospitalComment on above: Performed By: #### 64119493, 91501945, 93989137, 0487220, 3273331453, 3859081 ####[facility](DEFAULT)[address] [place] [address] 37637NUQ (RBC) [Entitic vol]94 wKCfovyr03-868Nwudngxe HospitalComment on above:Performed By: #### 94987563, 08590805, 34228857, 8011894, 5730924677, 8877017 ####[facility](DEFAULT)[address] [place] [address] 31439Otanlrud24 o35Cha705-863 [facility] Medical CenterComment on above:Performed By: #### 94177918, 29615671, 92822180, 7864708, 5132552102, 8324713 ####[facility](DEFAULT)[address] [place] [address] 49492Gxpzomiy mean volume (Bld) [Entitic vol]8.8 fLNormal 6.3-10.2Magrmercy health [facility] hospital HospitalComment on above:Performed By: #### 16409513, 82748275, 52804548, 8393972, 3730219185, 1616175 ####[facility](DEFAULT)[address] [place] [address] 49624OJH3.14 r66Xfn3.70-5.30[facility] HospitalComment on above:Performed By: #### 37740801, 36070407, 12925044, 4981229, 2376957474, 1679188 ####[facility](DEFAULT)[address] [place] [address] 27339RSZ 3.8 o27Xbgshl1.5-10.5[facility] HospitalComment on above:Performed By: #### 70073987, 65928321, 29809199, 7909763, 9837828483, 5997115 ####[facility] (DEFAULT)[address] [place] [address] 91087AAPB Intraoperative Recordon [id number] Intraoperative RecordMAGR Intra-Op Record Summary Primary Physician: KEITH GABRIEL DO Finalized Date/Time: 12/23/23 11:24:45 Pt. Name: SINDY ASHLEE KELLEY Bateman/Sex: 1950 FEMALE Med Rec #: [id number] Physician: KEITH GABRIEL DO Financial #: [id number] Pt. Type: D Room/Bed: / Admit/Disch: 12/23/23 05:40:58 - Institution: Case Times MAGR Entry 1 Patient In Room Time 12/23/23 07:54:00 Out Room Time 12/23/23 10:35:00 Anesthesia Start Time 12/23/23 07:54:00 Stop Time 12/23/23 10:41:00 Surgery Start Time 12/23/23 08:33:00 Stop Time 12/23/23 10:28:00 Last Modified By: Opal Orr RN 12/23/23 10:42:03 Case Attendance MAGR Entry 1 Entry 2 Entry 3 Case Attendee KIETH GABRIEL Bradley MD Kokinda, Diane RN Role Performed Surgeon - Primary Anesthesiologist of [employer] Helper Record Time In 12/23/23 08:03:00 12/23/23 07:54:00 12/23/23 07:54:00 Time Out 12/23/23 10:10:00 12/23/23 10:35:00 12/23/23 10:35:00 Procedure Arthroplasty Total Arthroplasty Total Arthroplasty Total Hip(Left) Hip(Left) Hip(Left) Last Modified By: Opal Orr RN, Diane RN Kokinda, Diane RN 12/23/23 10:41:40 12/23/23 10:41:40 12/23/23 10:41:40 Entry 4 Entry 5 Entry 6 Case Attendee Tasha Quintana BOX CHIPPER De La Cruz BOX CHIPPER, Tammy Wolff CST BOX CHIPPER CSFA CSFA Role Performed Scrub Personnel Forestry Farm Laborer Forestry Farm Laborer Time In 12/23/23 07:54:00 12/23/23 07:54:00 12/23/23 07:54:00 Time Out 12/23/23 10:35:00 12/23/23 10:35:00 12/23/23 10:35:00 Procedure Arthroplasty Total Arthroplasty Total Arthroplasty Total Hip(Left) Hip(Left) Hip(Left) Last Modified By: Opal Orr RN, Diane RN Kokinda, Diane RN 12/23/23 10:41:40 12/23/23 10:41:40 12/23/23 10:42:20 General Comments: LAMBERTO BENITO-BRITTANY REP Surgical Procedures MAGR Pre-Care Text: A.20 [...] Beverly MD, Opal Orr RN, Tasha Quintana BOX CHIPPER, Jono BOX CHIPPER, Deidre BOX CHIPPER CSFA Last Modified By: Opal Orr RN [...] Axillary Roll ankle O (more content not included)...[facility] PACU Recordon [id number] PACU RecordMAGR PACU Record Summary Primary Physician: KEITH GABRIEL DO Finalized Date/Time: 12/23/23 11:16:16 Pt. Name: ASHLEE BANERJEE KELLEY Bateman/Sex: 1950 FEMALE Med Rec #: [id number] Physician: KEITH GABRIEL DO Financial #: [id number] Pt. Type: D Room/Bed: / Admit/Disch: 12/23/23 05:40:58 - Institution: PACU Case Times MAGR Entry 1 In PACU I 12/23/23 10:36:00 Discharge from PACU 12/23/23 11:07:00 I Last Modified By: Kenneth Self RN 12/23/23 11:16:12 Finalized By: Kenneth Self RN Document Signatures Signed By: Kenneth Self RN 12/23/23 11:16[facility] Preoperative Recordon [id number] Preoperative RecordMAGR Pre-Op Record Summary Primary Physician: KEITH GABRIEL DO Finalized Date/Time: 12/23/23 11:16:35 Pt. Name: PRUDENCIO BANERJEEFrank Bateman/Sex: 1950 FEMALE Med Rec #: [id number] Physician: KEITH GABRIEL DO Financial #: [id number] Pt. Type: D Room/Bed: / Admit/Disch: 12/23/23 [...] ready for surgery. The patient remains free froms/s of injury. Patient/family express understanding of plan of care and participate in decisions affectinghis or her perioperrative plan of care. Allergies documented appropriately. Patient identifiers and consent correct. General Comments: Pt arrives to psw in a WC, Pt denies cp, sob, cough or flu like symptoms. Pt denies pacemaker/defibillator or sleep apnea. Finalized By: Kenneth Self RN Document Signatures Signed By: Kenneth Self RN 12/23/23 11:16[facility] Glucose Levelon [id number] [Mass/Vol]110 mg/jTGmsaqi03-292Dwlalcwh20 Simpson StreetComment on above:Result Comment: OPR_ID=IN_LIST,TGC FLAG = False,Meter:[id number] Ball Rolling Machine Operator:[id number] Robert StoryikaPerformed By: #### [id number], [id number] #### [facility] (DEFAULT) [address] [place] [id number] [Mass/Vol]93 mg/lTGsnqoe83-149Jdsyyjze[address] Comment on above:Result Comment: OPR_ID=[id number],TGC FLAG = False,Meter:[id number] Ball Rolling Machine Operator:127Rex MckenzieselPerformed By: #### [id number], [id number] #### [facility] (DEFAULT) [address] [place] [address] 42473PG Hip Complete Lefton 11-85-4315XX Hip Complete LeftEXAM: XR Hip Complete Left HISTORY: S/P hip [...] Andrei López DO 12/25/23 7:33 am Technologist: MARJANOhio Valley Surgical HospitalCoding Queryon 80-42-3948Cyalqg Query [id number]#1.00OTGTIFFMer[address] Health [address] HospitalCoding Summaryon 39-84-6335Nzduta SummaryHTMLBase 64 YvmqrbquDVm2ePw+PGhlYWQ+PQ7MRZPbR47igXKceU2bS1EXQYuAOnaiHBVTLVtVAxUggiSbKW3ryVPq ZXJu [file] bGF (more content not included)...[facility] TUMOR MARKERon 97-34-6494HVH Tumor Marker<2.2Normal<8.1Ohio[facility] Nelsonville Health CenterComment on above:Result Comment: This test was performed on the Atellica IM Immunoassay platform by Siemens which saurabh two-site sandwich chemiluminescent immunoassay. It is important to note that assays using different manufacturers and/or methods may not be comparable.Performed By: #### AFPTMR #### [facility] (DEFAULT) [address] [address]RK 19-9on 59-20-3208Mfhiaj Ag 19-9 Qn26.24 [arb'U]/mLNINF - 37.00 U/mLSuburban Community Hospital & Brentwood HospitalComment on above:This test was performed on the Siemens Atellica IM Immunoassay platform which is a 2-step sandwich c hemiluminescent immunoassay. It is important to note that assays using different manufacturers and/or methods may not be comparable.Interpretation and review of laboratory resultsNormalORobert Wood Johnson University Hospital at HamiltonCA 19-926.24 U/mLNormal<=37.00Ohio[facility] Nelsonville Health CenterComment on above:Result Comment: This test was performed on the Siemens Atellica IM Immunoassay platform which is a 2-step sandwich chemiluminescent immunoassay. It is important to note that assays using different manufacturers and/or methods may not be comparable.Performed By: #### [id number] #### [facility] (DEFAULT) [address] [place] [address] 21410ALO,PLATELETSon 45-08-0392Dwoigclblik distribution width (RBC) [Ratio]13.6 %10.8 - 14.9 %[facility] HospitalHematocrit (Bld) [Volume fraction]34.2 %Low34.9 - 44.3 %[facility] HospitalHemoglobin (Bld) [Mass/Vol]10.8 g/dLLow11.4 - 15.2 g/dLSuburban Community Hospital & Brentwood HospitalInterpretation and review of laboratory resultsAbnormSamaritan HospitalH (RBC) [Entitic mass]29.7 pg25.9 - 33.9 pgU [facility] Medical CenterMCHC (RBC) [Mass/Vol]31.6 g/dL31.4 - 35.9 g/dLSuburban Community Hospital & Brentwood HospitalMCV (RBC) [Entitic vol]94.0 fL79.6 - 97.7 [facility] Medical CenterPlatelet mean volume (Bld) [Entitic vol]12.0 fL8.5 - 12.2 [facility] CenterComment on above:This is an appended report. These results have been appended to a previously preliminary verified report.Platelets (Bld) [#/Vol]91 10*3/bRCrd843 - 393 K/uL [facility] HospitalComment on above:This is an appended report. These results have been appended to a previously preliminary verified report.RBC (Bld) [#/Vol]3.64 10*6/uLLowSuburban Community Hospital & Brentwood HospitalWBC (Bld) [#/Vol]4.06 10*3/uL 3.99 - 11.19 K/uLParadise Valley HospitalHematocrit (Bld) [Volume fraction]34.2 %Low34.9-44.3OhMemorial HospitalComment on above:Performed By: #### HEMOGC #### [facility] (DEFAULT) [address] [address]Xgsumltynf (Bld) [Mass/Vol]10.8 g/dLLow11.4-15.2Ohio[facility] Nelsonville Health CenterComment on above:Performed By: #### HEMOGC #### [facility] (DEFAULT) [address] [address]EDC (RBC) [Entitic vol]94.0 oZTjhtxe82.6-97.7Ohio[facility] Nelsonville Health CenterComment on above:Performed By: #### HEMOGC #### U [facility] (DEFAULT) [address] [place] [address] 62380Hoye Cell Hgb29.7 hzJamvuc22.9-33.9[facility] Nelson[facility] Health CenterComment on above:Performed By: #### HEMOGC #### U [facility] (DEFAULT) [address] [place] [address] 43652Kmog Cell Hgb Conc31.6 g/vPRcxhfw33.4-35.9[facility] Health CenterComment on above:Performed By: #### HEMOGC #### U [facility] (DEFAULT) [address] [place] [address] 78895Xtjcnmwg mean volume (Bld) [Entitic vol]12.0 fLNormal8.5-12.2 [facility] Health CenterComment on above:Result Comment: This is an appended report. These results have been appended to a previously prelimi nary verified report.Performed By: #### HEMOGC #### [facility] (DEFAULT) [address] [place] [address] 89666Pjqfyjxnu (Bld) [#/Vol]91 10*3/lSAga864-912YaomOhiohealth Nelsonville Health CenterComment on above:Result Comment: This is an appended report. These results have been appended to a previously preliminary verified report.Performed By: #### HEMOGC #### U [facility] (DEFAULT) [address] [place] [address] 51064OFR (Bld) [#/Vol]3.64 10*6/uLLow3.91-5.04Ohio[facility] Health CenterComment on above:Performed By: #### HEMOGC #### U [facility] (DEFAULT) [address] [place] [address] 06262TOG Jcfangpbfwnh38.6 %Yppnwy86.8-14.9[facility] Health CenterComment on above:Performed By: #### HEMOGC #### [facility] (DEFAULT) [address] [place], [place] [address]QQK (Bld) [#/Vol]4.06 10*3/uLNormal3.99-11.19Ohio[facility] Nelson[facility] Health CenterComment on above:Performed By: #### HEMOGC #### [facility] (DEFAULT) [address] [place] [address] 19462DHDU 6 (LYTES, BUN CREA)on 85-98-3077[place] gap [Moles/Vol]13 mmol/L7 - 17 mmol/[facility]ittman HospitalChloride [Moles/Vol]107 mmol/L98 - 108 mmol/[facility]itt[facility] HospitalCO2 [Moles/Vol]25 mmol/L21 - 31 mmol/[facility]itt[facility] HospitalCreatinine [Mass/Vol]0.99 mg/dL0.50 - 1.20 mg/dLSuburban Community Hospital & Brentwood HospitaleGFR, CKD-EPI, Tdyiid57- [facility] HospitalComment on above:Reported eGFR is based on the CKD-EPI 2020 equation using creatinine, age, and sex.Potassium [Moles/Vol]4.1 mmol/L3.5 - 5.0 mmol/Marion Hospitalodium [Moles/Vol]141 mmol/L135 - 145 mmol/[facility]ittman HospitalUrea nitrogen [Mass/Vol]35 mg/dLHigh7 - 25 mg/dLSuburban Community Hospital & Brentwood HospitalUrea nitrogen/Creatinine [Mass ratio]35 mg/mgSuburban Community Hospital & Brentwood HospitalAnion gap [Moles/Vol]13 mmol/LNormal7-17Ohio[facility] Nelson[facility] Health CenterComment on above:Performed By: #### BRIDGET, VARGAS6 #### [facility] (DEFAULT) [address] [place], [place] [address]Gbmqkyyy [Moles/Vol]107 mmol/ZKuoyaq12-894GlvnOhiohealth Nelsonville Health CenterComment on above:Performed By: #### BRIDGET, CHM6 #### [facility] (DEFAULT) [address] [place], [place] [address]RO4 [Moles/Vol]25 mmol/JQplgkq30-38TwfoOhiohealth Nelsonville Health CenterComment on above:Performed By: #### HFP, CHM6 #### [facility] (DEFAULT) [address] [place] [address] 76810Ryjijhluvj [Mass/Vol]0.99 mg/dLNormal0.50-1.20[facility] Health CenterComment on above:Performed By: #### BRIDGET, CHM6 #### [facility] (DEFAULT) [address] [place] [address] 78138GHU/1.73 sq M.predicted among non-blacks MDRD (S/P/Bld) [Vol rate/Area]60 mL/min/{1.73_m2}Normal>=60Ohio[facility] Nelson[facility] Health CenterComment on above:Result Comment: Reported eGFR is based on the CKD-EPI 2020 equation using creatinine, age, and sex.Performed By: #### BRIDGET, CHM6 #### [facility] (DEFAULT) [address] [place] [address] 33897Nyqyefdha [Moles/Vol]4.1 mmol/LNormal3.5-5.0[facility] Health CenterComment on above:Performed By: #### HFP, CHM6 #### [facility] (DEFAULT) [address] [place] [address] 71105Yroriz [Moles/Vol]141 mmol/MEyyewp510-762GltxOhiohealth Nelsonville Health CenterComment on above:Performed By: #### HFP, CHM6 #### [facility] (DEFAULT) [address] [place] [address] 61103Tmsc nitrogen [Mass/Vol]35 mg/dLHigh7-25Ohio[facility] Health CenterComment on above:Performed By: #### HFP, CHM6 #### [facility] (DEFAULT) [address] [place] [address] 06092Bfoe nitrogen/Creatinine [Mass ratio]35 mg/mgNormalOhio Fairfield Medical CenterComment on above:Performed By: #### BRIDGET, CHM6 #### [facility] (DEFAULT) [address] [place] [address] 73246FFJHZLK FUNCTION PANELon 32-30-1998Ecfzfmm [Mass/Vol]4.0 g/dL 3.5 - 5.0 g/dLOSU [facility] Medical CenterALP [Catalytic activity/Vol]118 U/L32 - 126 U/LOSU [facility] CenterALT [Catalytic activity/Vol]34 U/L9 - 48 U/LOSU [facility] CenterAST [Catalytic activity/Vol]39 U/L10 - 39 U/[facility]ittman HospitalBilirubin [Mass/Vol]0.5 mg/dLNINF - 1.5 mg/dLOSU [facility] So[facility] Medical CenterBilirubin.direct [Mass/Vol]0.2 mg/dLNINF - 0.3 mg/dLSuburban Community Hospital & Brentwood HospitalProtein [Mass/Vol]6.3 g/dLLow6.4 - 8.3 g/dLU [facility] Albumin [Mass/Vol]4.0 g/dLNormal3.5-5.0[facility] CenterComment on above:Performed By: #### BRIDGET, CHM6 #### U [facility] (DEFAULT) [address] [place] [address] 66670XPW [Catalytic activity/Vol]118 U/GGodwbs20-944CoqdOhiohealth Nelsonville Health CenterComment on above:Performed By: #### BRIDGET, CHM6 #### [facility] (DEFAULT) [address] [place] [address] 99765TZL [Catalytic activity/Vol]34 U/LNormal9-48[facility] Health CenterComment on above:Performed By: #### BRIDGET, CHM6 #### [facility] (DEFAULT) [address] [place] [address] 79989VGF [Catalytic activity/Vol]39 U/PEobipk54-77VxlhOhiohealth Nelsonville Health CenterComment on above:Performed By: #### BRIDGET, CHM6 #### [facility] (DEFAULT) [address] [place] [address] 09809Rdpwfloxf [Mass/Vol]0.5 mg/dLNormal<1.5[facility] Health CenterComment on above:Performed By: #### HFP, CHM6 #### [facility] (DEFAULT) [address] [place] [address] 27754Ithbmfyak.indirect [Mass/Vol]0.2 mg/dLNormal<0.3OhMemorial HospitalComment on above:Performed By: #### HFP, CHM6 #### [facility] (DEFAULT) [address] [place] [address] 71443Pvezolx [Mass/Vol]6.3 g/dLLow6.4-8.3[facility] Health CenterComment on above:Performed By: #### HFP, CHM6 #### [facility] (DEFAULT) [address] [place] [address] 75185Mn Panel Informationon 58-77-5128Echloxdmaawmnk and review of laboratory resultsAbnoSaint Francis Memorial Hospital PROTIME-INRon 53-76-9300PBQ Coag (Bld) [Relative time]1.3 {INR}High0.9 - 1.1[facility] HospitalInterpretation and review of laboratory resultsAbSt. Francis HospitalPT Coag (PPP) [Time]15.7 [facility]tering HealthINR Coag (PPP) [Relative time]1.3 {INR}High0.9-1.1[facility] Health CenterComment on above:Performed By: #### PTI #### [facility] (DEFAULT) [address] [place] [address] 68238KF Coag (PPP) [Time]15.7 sHigh11.9-14.2[facility] Health CenterComment on above:Performed By: #### PTI #### [facility] (DEFAULT) [address] [place] [address] 61092Z Urineon 11-26-2023 UrineUrine Culture ordered as a result of parameters set on specific urine dip and urine microsopic results. >100,000 cfu/ml Escherichia coli and 30,000 cfu/ml Klebsiella oxytoca ORGANISM EC Kleoxy SUSCEPTIBILITY ORGANISM ID: 1 ANTIBIOTIC INTERPRETATION TERESA STATUS [...] S <=4 Verified Tri/Sulf S <=2/38 Verified SUSCEPTIBILITY ORGANISM ID: 2 ANTIBIOTIC INTERPRETATION TERESA STATUS [...] Tobra S <=4 Verified Tri/Sulf S <=2/38 [facility] HospitalComment on above:Performed By: #### [id number], [id number] #### [facility] (DEFAULT) [address] [place] [address] 40607Burudwqu Orderson 34-43-3740Ohrdrmlo Orders [id number]#1.00OTGTIFFNoPremier Health [facility] Medical Center.Auto Diff 1on 27-27-6912Fvlb [place] %8 %Normal1-12[facility] HospitalComment on above: Performed By: #### [id number], [id number] #### [facility] (DEFAULT) [address] [place] [address] 50803Yvkc Abs#0.0 y28Uyssdl6.0-0.2Magrmercy health urbana hospital HospitalComment on above:Performed By: #### [id number], [id number] #### [facility] (DEFAULT) [address] [place] [address] 27500Vebyjwxry/100 WBC (Bld)0.8 %Normal0.2-2.0[facility] Comment on above:Performed By: #### [id number], [id number] #### [facility] (DEFAULT) [address] [place] [address] 64205Gtm Abs#0.2 q52Dyomqa8.0-0.4[facility] HospitalComment on above:Performed By: #### [id number], [id number] #### [facility] (DEFAULT) [address] [place] [address] 42483Uwcemjedxmz/100 WBC (Bld)4.3 %High0.9-4.0[facility] Hospital Comment on above:Performed By: #### [id number], [id number] #### [facility] (DEFAULT) [address] [place] [address] 10920Nhcfk Abs#0.7 o42Vag7.3-2.9[facility] HospitalComment on above:Performed By: #### [id number], [id number] #### [facility] (DEFAULT) [address] [place] [address] 73132Uqdnrddcflx/100 WBC (Bld)19 %Vhdvyj43-31Toigzywg Hospital Comment on above:Performed By: #### [id number], [id number] #### [facility] (DEFAULT) [address] [place] [address] 54492Hbbn Abs#0.3 i78Hlsowc1.0-0.8[facility] HospitalComment on above:Performed By: #### [id number], [id number] #### [facility] (DEFAULT) [address] [place] [address] 87236Gebu Abs#2.4 u15Ggtqfw4.5-9.2Msuburban community hospital & brentwood hospital HospitalComment on above:Performed By: #### [id number], [id number] #### [facility] (DEFAULT) [address] [place] [address] 83932Llsxiusyqyl/100 WBC (Bld)68 %Ihesaw44-01Tucemcqz Hospital Comment on above:Performed By: #### [id number], [id number] #### [facility] (DEFAULT) [address] [place] [address] 54639TEH Standardon 65-06-3822aMZW Non AA41 mL/min/1.73m2 Invalid Interpretation [facility] HospitalComment on above:Performed By: #### [id number], [id number] #### [facility] (DEFAULT) [address] [place] [address] 06455kDQH AA49 mL/min/1.37i0Wtkmtey Interpretation [facility] HospitalComment on above:Performed By: #### [id number], [id number] #### [facility] (DEFAULT) [address] [place] [address] 54877Awdubkm [Mass/Vol]9.0 mg/dLNormal8.9-10.3MAdena Fayette Medical Center Comment on above:Performed By: #### [id number], [id number] #### [facility] (DEFAULT) [address] [place] [address] 79710Vrarkmvl [Moles/Vol]108 mmol/FNuqpvz565-713Sxkbfbnf HospitalComment on above:Performed By: #### [id number], [id number] #### [facility] (DEFAULT) [address] [place] [address] 36311WO8 [Moles/Vol]24 mmol/KQdirct59-07Mhhbdgik Hospital Comment on above:Performed By: #### [id number], [id number] #### [facility] (DEFAULT) [address] [place] [address] 35233Rcjsciecyy [Mass/Vol]1.28 mg/dLNormal0.60-1.30[facility] HospitalComment on above:Performed By: #### [id number], [id number] #### [facility] (DEFAULT) [address] [place] [address] 81640Pxgqnwl [Mass/Vol]97.0 mg/rQCivdhs46.0-118.0[facility] HospitalComment on above:Performed By: #### [id number], [id number] #### [facility] (DEFAULT) [address] [place] [address] 59259Sunezvkei [Moles/Vol]4.1 mmol/LNormal3.6-5.1Msuburban community hospital & b[facility] hospital HospitalComment on above:Performed By: #### [id number], [id number] #### [facility] (DEFAULT) [address] [place] [address] 00841Qhzzzl [Moles/Vol]138.0 mmol/AQyogkd070.0-144.0[facility] HospitalComment on above:Performed By: #### [id number], [id number] #### [facility] (DEFAULT) [address] [place] [address] 65782Aodl nitrogen [Mass/Vol]43 mg/dLHigh8-26[facility] Comment on above:Performed By: #### [id number], [id number] #### [facility] (DEFAULT) [address] [place] [address] 22879Ffuuh gap [Moles/Vol]10.1 mmol/LNormal5.0-19.0[facility] HospitalComment on above:Performed By: #### [id number], [id number] #### [facility] (DEFAULT) [address] [place] [address] 80186Yxizaoqayv855 mOsm/LInvalid Interpretation CodeHolzer Hospital HospitalComment on above:Performed By: #### [id number], [id number] #### [facility] (DEFAULT) [address] [place] [address] 68578Lnis nitrogen/Creatinine [Mass ratio]33.5 mg/mgHigh 4.6-16.2MAdena Fayette Medical CenterComment on above:Performed By: #### [id number], [id number] #### [facility] (DEFAULT) [address] [place] [address] 00784DOV w/ Auto Diffon 81-53-7323Zvwkwrrvacm distribution width (RBC) [Ratio]14.7 %Ledvsw55.5-15.0[facility] HospitalComment on above: Performed By: #### [id number], [id number] #### [facility] (DEFAULT) [address] [place] [address] 64583Mtpawteauf (Bld) [Volume fraction]33.3 %Low33.7-40.4 [facility] CenterComment on above:Performed By: #### [id number], [id number] #### [facility] (DEFAULT) [address] [place] [address] 84918Trexpjbsta (Bld) [Mass/Vol]11.1 g/dLLow11.3-15.9[facility] CenterComment on above:Performed By: #### [id number], [id number] #### [facility] (DEFAULT) [address] [place] [address] 88106Auz Diff?AutoInvalid Interpretation CodeUniversity Hospitals Lake West Medical Center Comment on above:Performed By: #### [id number], [id number] #### [facility] (DEFAULT) [address] [place] [address] 04458DQK (RBC) [Entitic mass]31 dhNqbmij37-79Djiphlda Hospital Comment on above:Performed By: #### [id number], [id number] #### [facility] (DEFAULT) [address] [place] [address] 34016SAHO (RBC) [Mass/Vol]33 g/tCMsssdr08-00[facility] Comment on above:Performed By: #### [id number], [id number] #### [facility] (DEFAULT) [address] [place] [address] 67254ZWT (RBC) [Entitic vol]92 qTCcjtbu71-386Pcxjuzdn Hospital Comment on above:Performed By: #### [id number], [id number] #### [facility] (DEFAULT) [address] [place] [address] 86570Uvadqfgs824 b04Cem842-925Ukoeyfog HospitalComment on above:Performed By: #### [id number], [id number] #### [facility] (DEFAULT) [address] [place] [address] 24449Izmunpbz mean volume (Bld) [Entitic vol]9.4 fLNormal 6.3-10.2Msuburban community hospital & [facility] HospitalComment on above:Performed By: #### [id number], [id number] #### [facility] (DEFAULT) [address] [place] [address] 27428BHH3.62 g11Aib5.70-5.30[facility] HospitalComment on above: Performed By: #### [id number], [id number] #### [facility] (DEFAULT) [address] [place] [address] 58715RDD0.6 v56Omtqym3.5-10.5[facility] HospitalComment on above: Performed By: #### [id number], [id number] #### [facility] (DEFAULT) [address] [place] [address] 02048SiwL5j Standardon 11-24-2023.Hb11.5Invalid Interpretation [facility] HospitalComment on above:Performed By: #### [id number] ####[facility] (DEFAULT)[address] [place] [address] 11033.Hgb A1c0.53 g/dL Invalid Interpretation [facility] HospitalComment on above:Performed By: #### [id number] ####[facility] (DEFAULT)[address] [place] [address] 85750Odpahxg [Mass/Vol]134 mg/dLInvalid Interpretation [facility] Comment on above:Performed By: #### [id number] ####[facility] (DEFAULT)[address] [place] [address] 88180JcJ1o (Bld) [Mass fraction]6.3 % High4.6-6.2Msuburban community hospital & brent[facility] hospital HospitalComment on above:Performed By: #### [id number] ####[facility] (DEFAULT)[address] [place] [address] 08811XS Micro1 on 69-19-4192AK Amorph.1+NormalNdgrmercy health urbana hospital HospitalComment on above:Order Comment: Urinalysis Microscopic order added on by [employer] Expert Rules system.Performed By: #### [id number], [id number] #### [facility] (DEFAULT) [address] [place] [address] 86141MK Bacteria1+NormalHolzer Hospital HospitalComment on above:Order Comment: Urinalysis Microscopic order added on by [employer] Expert Rules system. Performed By: #### [id number], [id number] #### [facility] (DEFAULT) [address] [place] [address] Hyal Cast5-10NormTrumbull Memorial Hospital HospitalComment on above: Order Comment: Urinalysis Microscopic order added on by [employer] Expert Rules system.Performed By: #### [id number], [id number] #### [facility] (DEFAULT) [address] [place] [address] Mucous2+NormalHolzer Hospital HospitalComment on above:Order Comment: Urinalysis Microscopic order added on by [employer] Expert Rules system. Performed By: #### [id number], [id number] #### [facility] (DEFAULT) [address] [place], [place] [address]UA RBC0-2NormalHolzer Hospital HospitalComment on above:Order Comment: Urinalysis Microscopic order added on by [employer] Expert Rules system. Performed By: #### [id number], [id number] #### [facility] (DEFAULT) [address] [place], [place] [address]UA Squam EpiFewNormTrumbull Memorial Hospital HospitalComment on above: Order Comment: Urinalysis Microscopic order added on by [facility] [employer] Expert Rules system.Performed By: #### [id number], [id number] #### [facility] (DEFAULT) [address] [place], [place] [address]UA WBC3-5NoLutheran Hospital HospitalComment on above:Order Comment: Urinalysis Microscopic order added on by [employer] Expert Rules system. Performed By: #### [id number], [id number] #### [facility] (DEFAULT) [address] [place] [address] 04578EY w Culture if Ind Standardon 58-67-9028Qpleqwhypi UA NormalHolzer Hospital HospitalComment on above:Performed By: #### [id number], [id number] #### [facility] (DEFAULT) [address] [place] [address] 14070Bpfni (U)YellowNoPremier Health Upper Valley Medical CenterComment on above: Performed By: #### [id number], [id number] #### [facility] (DEFAULT) [address] [place] [address] 30100Xloyqmc?IndicatedInvalid Interpretation CodeHolzer Hospital HospitalComment on above:Result Comment: Result created by rule GL_MAGR_ADD_UA_CULT Result created by rule GL_MAGR_ADD_UA_CULT Result created by rule GL_MAGR_ADD_UA_CULTPerformed By: #### [id number], [id number] #### [facility] (DEFAULT) [address] [place] [address] 81364Pyebush (U) [Mass/Vol]NegativeWhite Hospital Comment on above:Performed By: #### [id number], [id number] #### [facility] (DEFAULT) [address] [place] [address] 18003Qoqwkeo Ql (U)TRACENormUniversity Hospitals Portage Medical CenterComment on above:Performed By: #### [id number], [id number] #### [facility] (DEFAULT) [address] [place] [address] 71189Fpnhp?IndicatedInvalid Interpretation CodeUniversity Hospitals Lake West Medical CenterComment on above:Result Comment: Result created by rule GL_MAGR_ADD_UA_MICROPerformed By: #### [id number], [id number] #### [facility] (DEFAULT) [address] [place] [address] 16036ST BilirubinNegativeNormalMagruder HospitalComment on above:Performed By: #### [id number], [id number] #### [facility] (DEFAULT) [address] [place] [address] 77284YD BloodNegativeNormalNEGATIVEHolzer Hospital HospitalComment on above:Performed By: #### [id number], [id number] #### [facility] (DEFAULT) [address] [place] [address] [id number] ClarityCLEARNormalCLEARHolzer Hospital HospitalComment on above:Performed By: #### [id number], [id number] #### [facility] (DEFAULT) [address] [place] [address] [id number] Leuk EstTRACEAbnormalNEGATIVEHolzer Hospital HospitalComment on above:Performed By: #### [id number], [id number] #### [facility] (DEFAULT) [address] [place] [address] [id number] NitriteNegativeNormalNEGATIVEHolzer Hospital HospitalComment on above:Performed By: #### [id number], [id number] #### [facility] (DEFAULT) [address] [place] [address] [id number] pH5.0Vsmkyj0-5Vwyibkyc HospitalComment on above: Performed By: #### [id number], [id number] #### [facility] (DEFAULT) [address] [place] [address] 05754NM ProteinNegativeNormalNEGATIVEHolzer Hospital HospitalComment on above:Performed By: #### [id number], [id number] #### [facility] (DEFAULT) [address] [place] [address] [id number] Spec Grav>=1.273Qnfppz9.001-1.035[facility] Comment on above:Performed By: #### [id number], [id number] #### [facility] (DEFAULT) [address] [place] [address] [id number] Urobilinogen0.2 mg/dLNormal0.2-1.0[facility] Comment on above:Performed By: #### [id number], [id number] #### [facility] (DEFAULT) [address] [place], [place] [address]Smxpt SourceClean [facility] HospitalComment on above:Performed By: #### [id number], [id number] #### [facility] (DEFAULT) [address] [place], [place] [id number] Chest 1 View Frontalon 94-82-9236DV Chest 1 View FrontalEXAM: XR Chest 1 View Frontal INDICATION: pre op-former smoker. COMPARISON: None. TECHNIQUE: Single frontal view of the chest FINDINGS: Normal cardiomediastinal contours. No acute infiltrative process. No pleural effusion or pneumothorax. No acute osseous abnormality. IMPRESSION: No acute cardiopulmonary process. Final Dictated by: Belgica Cordoba MD Dictated DT/TM: 11/27/23 8:58 Signed (Electronic Signature): Belgica Cordoba MD 11/27/23 8:59 am Technologist: [facility] HospitalXR Hip Complete Lefton 46-45-6156DA Hip Complete LeftEXAM: XR Hip Complete Left INDICATION: Left total [...] Belgica Cordoba MD 11/27/23 9:01 am Technologist: [facility] HospitalGastroenterology Office/Clinic Noteon 09-64-4725Gsmmorsvbyrjefbj Office/Clinic NoteChief Complaint f/u History of Present Illness Here [...] f/u bx Repeat in (more content not included)...NormalBerger HospitalMRI Abdomen w/ + w/o Contraston 18-28-9638PRD Abdomen w/ + w/o ContrastHISTORY: Cirrhosis with hepatocellular carcinoma screening. TECHNIQUE: Multiplanar, multisequences were obtained pre and postcontrast. COMPARISON: 03/16/2023. FINDINGS: There is fatty infiltration of the liver with mild hypertrophy left lobe of liver and lobulation suspicious for changes of cirrhosis. No hepatic masses or biliary ductal dilatation is seen.Common bile duct measures 5 mm. There is [...] Is Signed, Electronically Signed in Other Vendor System)Normal Berger HospitalComment on above:Order Comment: medtronic bladder stim, please have pt bring card.eGFRon 73-90-1995Neixiugps GFR 48 mL/min/1.73m?Low>=60Berger HospitalComment on above:Order Comment: Order added by Discern Rule.Result Comment: [facility] have implemented the eGFR calculation approach that does not havea coefficient for race and that conforms to [...] maximum of SCr/? or 1 Age = yearsPerformed By: #### EGFR #### [address] [id number] Creatinine Von 12-27-7681VCP Crea iStat Venous1.2 mg/dL Normal0.6-1.3BOhioHealth Shelby HospitalComment on above:Performed By: #### CD:[id number] #### [address] [id number] Cervical spine Lateral Views W flexion and W extensionon 35-18-7216RNBMKUJBWPR: XR C-SPINE FLEX/EXT ONLY 2 VIEWS 09/16/2023 10:58 AM CLINICAL HISTORY: Laminoplasty ASSOCIATED DIAGNOSIS: Cervical spondylosis with myelopathy ORDERING PROVIDER: GERI VERGARA TECHNOLOGISTS NOTE: COMPARISON: XR C-SPINE FLEX/EXT ONLY 2 VIEWS 06/17/2023, 10:[address] C-SPINE W/O CONTRAST 03/23/2023, 8:32 AM FINDINGS: Visualization of the cervical spine from the levels of the skull base to the C7- T1 intervertebral disc space on the lateral image. [...] flexion which reduces at the C2-C3 and C3- C4 levels with extension. 3. Advanced C4-5, C5-6 and C6-7 degenerative disc disease, moderate C4-C7 endplate spondylosis and degenerative facet arthrosis. 4. Osteopenia. 5. No acute fracture. MACRO: None Rylie Patel, DO - 09/17/2023 EXAMINATION: XR C-SPINE FLEX/EXT ONLY 2 VIEWS 09/16/2023 10:58 AM CLINICAL HISTORY: Laminoplasty ASSOCIATED DIAGNOSIS: Cervical spondylosis with myelopathy ORDERING PROVIDER: GERI VERGARA TECHNMONY NOTE: COMPARISON: XR C-SPINE FLEX/EXT ONLY 2 VIEWS 06/17/2023, 10:[address] C-SPINE W/O CONTRAST 03/23/2023, 8:32 AM FINDINGS: Visualization of the cervical spine from the levels of the skull base to the C7- T1 intervertebral disc space on the lateral image. [...] flexion which reduces at the C2-C3 and C3- C4 levels with extension. 3. Advanced C4-5, C5-6 and C6-7 degenerative disc disease, moderate C4-C7 endplate spondylosis and degenerative facet arthrosis. 4. Osteopenia. 5. No acute fracture. MACRO: None [facility] Cervical spine Lateral Views W flexion and W extensionOrdered By: Rylie Min on 73-52-5482MmrjjPcnswz Work Phone: XR Cervical spine Lateral Views W flexion and W extensionon 55-08-5142Dfeudiypz Study observation (narrative)[facility] Cervical spine Lateral Views W flexion and W extensionon 65-68-8362DRBTUKABKSN: XR C-SPINE FLEX/EXT ONLY 2 VIEWS 06/17/2023 [...] are noted most likely postsurgical. MACRO: None Edin Smalls MD - 06/17/2023 EXAMINATION: XR C-SPINE FLEX/EXT [...] are noted most likely postsurgical. MACRO: None [facility]Radiology Study observation (narrative)[facility]XR Cervical spine Lateral Views W flexion and W extensionOrdered By: Edin Toney on 06-17-2023 [facility] Work Phone: basic metabolic 2000 panelon 84-49-9692Tnyoq gap [Moles/Vol]14 mmol/L10 - 20Met[facility]HealthCalcium [Mass/Vol]9.9 mg/dL8.4 - 10.4 mg/dLMetroHealthChloride [Moles/Vol]104 mmol/L97 - 111 mmol/LMetroHealthCO2 [Moles/Vol]26 mmol/L21 - 30 mmol/LMetroHealthCreatinine [Mass/Vol]1.31 mg/dLHigh 0.50 - 1.10 mg/dLMetroHealthGFR/1.73 sq M.predicted MDRD (S/P/Bld) [Vol rate/Area]43 mL/min/{1.73_m2}Low- PINFMetroHealthComment on above:2020 CKD EPI Equation using Creatinine without Race [...] Diagnosing Kidney Disease. AmericanJournal of Kidney Diseases 202;79(2):268-88.e1. 2. N Engl J Med 2021 Vol. 385 Issue 19 Pages 9491-4558 Glucose [Mass/Vol]187 mg/dNKncb64 - 116 mg/dLMetroHealthInterpretation and review of laboratory resultsAbnormalMetroHealthPotassium [Moles/Vol]4.2 mmol/L 3.3 - 5.3 mmol/LMetroHealthSodium [Moles/Vol]140 mmol/L135 - 148 mmol/L [facility]HealthUrea nitrogen [Mass/Vol]40 mg/dLHigh8 - 22 mg/dLMetroHealthCT Cervical spine WO contrastOrdered By: Jed Neri on 65-09-9765YQ YOB403.15 (mGy.cm)[facility] Work Phone: cT SeriesTopogram,Topogram,C SPINE WOMetroHealth Work Phone: cTDI VOL0.07 (mGy),0.08 (mGy),15.96 (mGy)[facility] Work Phone: PHANTOM TYPEOptics 1 Body Dosimetry Phantom,IEC Body Dosimetry Phantom,IEC Body Dosimetry PhantomMetroHealth Work Phone: [facility] Work Phone: cT Cervical spine WO contraston 07-05-6144DMMPKHDJYLR: CT C-SPINE W/O CONTRAST 03/23/2023 08:32 AM CLINICAL HISTORY: Neck pain, 6 weeks or more; X-ray C-spine done ASSOCIATED DIAGNOSIS: Cervical spondylosis with myelopathy ORDERING PROVIDER: GERI VERGARA TECHNOLOGISTS NOTE: COMPARISON: None TECHNIQUE: Thin isotropic axial images were obtained from the skull base to the upper thoracic spine without intravenous contrast. 2D sagittal and coronal reconstructions were obtained from the axialdata. FINDINGS: Counting reference: Craniocervical junction. Anatomic variants: [...] changes with moderate eccentric spinal canal stenoses andventral cord flattening at C4-5 through C6-7. Scattered moderate and severe neural foraminal stenoses. MACRO: None Jed Blanco MD - 03/23/2023 EXAMINATION: CT C-SPINE W/O [...] and coronal reconstructions were obtained from the axialdata. FINDINGS: Counting reference: Craniocervical junction. Anatomic variants: [...] changes with moderate eccentric spinal canal stenoses andventral cord flattening at C4-5 through C6-7. Scattered moderate and severe neural foraminal stenoses. MACRO: None [facility]Radiology Study observation (narrative)[facility]roHealthEKG 12 LEAD - PERFORMon 04-57-6608NursfgcyyPmdive sinus rhythm Nonspecific ST abnormality Abnormal ECG No previous ECGs available Confirmed by BREN AUSTIN ([id number]) on 03/23/2023 6:39:31 PM MetroHealthP wave Atrium by WUB86XMLYxbwbDxkxcgI wave pzhi92pdwxbgrEmaamFopozfS- R Igllkvmp929 msMetroHealthQ-T cydhcewx986 msMetroHealthQ-T interval corrected 420 msMetroHealthQRS gsfp35vzlfqtsNjymuNcbpqdHER qajzlimw50 msMetroHealthT wave owiu69zggkmbaJjjfcMywpzlInencVutmxdFveqpnhxyl - Blood bankon 04-70-3832CWT and Rh group Nom (Bld)Blood group A Rh(D) positiveMetroHealthABO and Rh group Nom (Bld)No Previous ResultsMetroHealthComment on above:Patient does not require a 2nd sample drawn prior to surgery date of 03/31/2023. Specimen meets Blood Bank's Pre-Surgical Protocol and is valid within 14 days from date of collection but will at midnight on the day of approved Surgery.Blood group antibody screen QlNegativeMetroHealthABO and Rh group Nom (Bld)Blood group A Rh(D) positiveMetroHealthLaboratory - Chemistry and Chemistry - challengeon 03-23-2023 Albumin [Mass/Vol]3.9 g/dL3.4 - 5.1 g/dLMetroHealthALP [Catalytic activity/Vol] 138 U/LMetroHealthALT [Catalytic activity/Vol]33 U/LMetroHealthAST [Catalytic activity/Vol]39 U/LMetroHealthBilirubin [Mass/Vol]0.7 mg/dL0.1 - 1.5 mg/dL MetroHealthBilirubin.direct [Mass/Vol]0.20 mg/dL0.10 - 0.30 mg/dLMet[facility]Health Protein [Mass/Vol]6.2 g/dL5.7 - 8.1 g/dLMetroHealthGlucose [Mass/Vol]183 mg/dL High80 - 116 mg/dLMetroHealthComment on above:Follow Protocol Notified AURORA WAKEFIELD MD Laboratory - Coagulationon 30-90-9699dKQD Coag (Bld) [Time]36 sMetroHealthINR Coag (PPP) [Relative time]1.13 {INR}High0.90 - 1.10MetroHealthPT Coag (PPP) [Time]12.6 sMetroHealthLaboratory - Hematology and Cell countson 03-23-2023 Basophils (Bld) [#/Vol]0.03 10*3/uL0.00 - 0.20 K/uLMetroHealthBasophils/100 WBC (Bld)0.7 %NINF - 1.9 %MetroHealthEosinophils (Bld) [#/Vol]0.15 10*3/uL0.00 - 0.70 K/uLMetroHealthEosinophils/100 WBC (Bld)3.7 %0.1 - 4.0 %[facility] Erythrocyte distribution width (RBC) [Ratio]13.6 %11.5 - 14.5 %[facility] Hematocrit (Bld) [Volume fraction]33.8 %Low36.0 - 46.0 %MetroHealthHemoglobin (Bld) [Mass/Vol]11.1 g/dLLow12.0 - 15.0 g/dLMetroHealthLymphocytes (Bld) [#/Vol] 0.74 10*3/uLLow1.00 - 4.80 K/uLMetroHealthLymphocytes/100 WBC (Bld)18.3 %Low24.0 - 44.0 %MetroHealthMCH (RBC) [Entitic mass]29.8 pg26.0 - 34.0 pgMetroHealthMCHC (RBC) [Mass/Vol]32.9 g/dL32.0 - 35.9 g/dLMetroHealthMCV (RBC) [Entitic vol]91 fL 80 - 100 fLMetroHealthMonocytes (Bld) [#/Vol]0.34 10*3/uL0.20 - 1.00 K/uL MetroHealthMonocytes/100 WBC (Bld)8.4 %2.0 - 11.0 %MetroHealthNeutrophils (Bld) [#/Vol]2.79 10*3/uL1.50 - 8.00 K/uLMetroHealthNeutrophils/100 WBC (Bld)68.9 % 31.0 - 76.0 %MetroHealthPlatelet mean volume (Bld) [Entitic vol]9.8 fL7.5 - 11.2 fLMetroHealthPlatelets (Bld) [#/Vol]109 10*3/jRLzc103 - 400 K/uLMetroHealthRBC (Bld) [#/Vol]3.73 10*6/uLLowMetroHealthWBC (Bld) [#/Vol]4.0 10*3/uLLow4.5 - 11.5 K/uLMetroHealthNo Panel Informationon 67-34-2987SrqtrCargcpKiigqGktufl Interpretation and review of laboratory resultsNormalMetroHealthMetroHealth Interpretation and review of laboratory resultsAbnormalMetroHealthInterpretation and review of laboratory resultsNormalMetroHealthMetroHealthInterpretation and review of laboratory resultsAbnormalMetroHealthMetroHealthInterpretation and review of laboratory resultsAbnormalMetroHealthMetroHealthConsent for Treatment on 09-57-4549Opuiyeo for Treatment [id number]#1.00CD:[address] [place], [place] [address]Consultation Noteon 63-28-7968Gbnflhmqupic NotePatient: ASHLEE BANERJEE Age: 72 years Sex: Female : 1950 Associated Diagnoses: None Author: Gerry Jerry MD Chief Complaint 11/10/2022 9:57 EDT Neck pain History of Present Illness 72-year-old female long history of low back and lower extremity pain. She was under the care of at [facility]. She recently saw Dr. Vergara who obtained an MRI of the cervical spine based on the patient's progressive symptoms of standing and walking instability and clumsiness in her hands. She was found to have rather significant cervical spinal stenosis. The patient has had a recent lumbarepidural steroid injection with Dr. Tian with no [...] Form scanned. Pertinent findings are noted in theHPI. Health Status Allergies: Allergic Reactions (All) Severity Not Documented Morphine- Rash. Nickel- Itching. Penicillin- Swelling. Sulfur Based Preservatives- Itching. Current medications: Home Medications (21) Active acetaminophen-hydrocodone 325 mg-5 mg oral tablet aspirin 81 [...] , Daily Nasacort Allergy 24HR , Daily Pomfret-3 Fish Oil , Daily Probiotic 10 Ultra Strength Restasis ophthalmic 1 drop(s), BID traZODONE 50 mg Tab 50 mg = 1 tab(s), Oral, Once a day (at bedtime) valsartan 320 mg Tab 320 mg = 1 tab(s), Oral, Daily Vitamin D , Daily Zyrtec 10 mg, Daily Problem list: All Problems Diabetes / SNOMED CT 516408121 / Confirmed High blood cholesterol / SNOMED CT 38202831 / Confirmed HTN (hypertension) / SNOMED CT 4627069768 / Confirmed Hypothyroid / SNOMED CT 39244305 / Confirmed Overactive bladder / SNOMED CT 7759331651 / Confirmed Histories Past Medical History: No active or resolved past medical history items have been selected or recorded. Family History: No family history items have been selected or recorded. Procedure history: Electrical stimulation of bladder (718379092) on 08/05/2021 at 70 Years. History of hysterectomy.. (3339993110). Comments: 05/19/2022 12:39 EST - Day Mala EDEN [address] [facility] [address] Cervantes History of right total knee replacement ([id number]). Comments: 05/19/2022 12:40 EST - Day Mala EDEN [address] [facility] [address] Gabriel Complete repair of rotator cuff (629518338). Comments: 05/19/2022 12:41 EST - Day Mala EDEN [address] [facility] [address] Gabriel Complete repair of rotator cuff (534125521). Comments: 05/19/2022 12:42 EST - Day Mala EDEN [address] [facility] [address] Gabriel Social History Social & Psychosocial [...] No evidence for acute (more content not included)...[facility] HospitalComment on above:Result Comment: Electronically Signed By: Rosalino FOSTER, Gerry Ovalle.br\Date and Time Signed: 11/10/22 11:01 EDTHIPAA Forms Officeon 87-78-0003SUJFR Forms Office [id number]#1.00CD:[address] [place], [place] [address]Legal Correspondence Officeon 29-51-7264Wygqg Correspondence Office [id number]#1.00CD:[address] [place], [place] [address]Legal Correspondence Office [id number]#1.00CD:[address] [place], [place] [address]Office/Clinic Note-Physicianon 59-51-3881Jmzafc/Clinic Note-Physician [id number]#1.00CD:[address] [place], [place] [address]Patient Correspondenceon 09-81-2071Oayfhkv Correspondence [id number]#1.00CD:[address] [place], [place] [address]Patient [id number]#1.00CD:127 [facility] HospitalPatient Correspondence [id number]#1.00CD:127[facility] HospitalPatient [id number]#1.00CD:127 [facility] HospitalPatient Correspondence [id number]#1.00CD:127[facility] HospitalPatient History Officeon 21-91-6338Zagjcby History Office [id number]#1.00CD:DarleneProMedica Defiance Regional HospitalMRI Spine Cervical w/o Contraston 00-27-3265UGX Spine Cervical w/o ContrastExam Date/Time: 10/16/2022 15:46 EDT Reason for Exam: [...] Transcribed by: KENYA Technologist: GIANNA Technical Comments [facility] - CantonConsent for Treatmenton 22-38-6053Pyflipk for [id number]#1.00CD:[address] [place], [place] [address]RAD - MRI Screening Formon 12-61-1079FZM - MRI Screening [id number]#1.00CD:[address] [place], [place] [address]Physician Orderon 02-28-5207Pbsddcbfx Order [id number]#1.00CD:[address] [place], [place] [address]GLYCOHEMOGLOBIN A1Con 06-08-5340BIT RECOMMENDATIONSEE BELOWDelaware County HospitalComment on above:Result Comment: ADA RECOMMENDED LIMIT 4.0 - 6.0 ADA THERAPEUTIC TARGET < 7.0 ACTION SUGGESTED > 7.0Performed By: #### A1C #### [facility] [address] [place] [address] Dr. Fernanda SanonGlucose [Mass/Vol]134 mg/dLDelaware County HospitalComment on above:Performed By: #### A1C #### [facility] [address] [address] [address] Fernanda SanonHbA1c (Bld) [Mass fraction]6.3 %Critically high4.5-6.2The [facility] HospitalComment on above:Performed By: #### A1C #### [facility] [address] [address] [address] Fernanda SanonPOINT OF CARE GLUCOSEon 75-73-5472Ezwhrlr [Mass/Vol]138 mg/dL Critically xwup35-334Vio [facility] HospitalComment on above:Performed By: #### POCGLUC #### [facility] [address] [address] [address] Fernanda Wagner Summary.on 03-89-3880Izvysr Summary. CD:214243VJ:5599741GKb1zBu+PGhlYWQ+YP2UHBHzQ23esADjlA1FE7tWSU1KUYJXVVUSUA9ZUI0vw TP5SPaiF7IwrrAj [file] b2xs (more content not included)...NormalClinton Memorial HospitalConsent for Treatmenton 03-84-4614Ckzkmfj for Treatment [id number]#1.00CD:127NormalClinton Memorial HospitalConsultation Noteon 52-22-5223Qasamiysejfw NotePatient: ASHLEE BANERJEE Age: 71 years Sex: Female [...] records she had a lumbar RFA as wellas a left gluteal trigger point injection but [...] 0 Nasacort Allergy 24HR: Daily, Refill(s) 0 Pomfret-3 Fish Oil: Daily, Refills(s) 0 Vitamin D: Daily, Refills(s) 0 Zyrtec: 10 mg, Daily, Refills(s) 0 acetaminophen-hydrocodone 325 mg-5 mg oral tablet: TAKE 1 [...] All Problems Overactive bladder / SNOMED CT 7071206447 / Confirmed Diabetes / SNOMED CT 762852691 / Confirmed HTN (hypertension) / SNOMED CT 9685984147 / Confirmed Hypothyroid / SNOMED CT 81149183 / Confirmed High blood cholesterol / SNOMED CT 62206512 / Confirmed Objective Vital Signs 06/16/2022 13:42 [...] hip flexion 5 -/5 Integumentary: Warm, Dry, Parnell. Neurologic: Alert, Oriented. Psychiatric: Cooperative, Appropriate mood [...] mild right foraminal padilla (more content not included)...[facility] Comment on above:Result Comment: Electronically Signed By: Janie Henning PA-C\.br\Date and Time Signed: 06/16/22 14:02 EST\.br\Electronically Co-Signed By: Geri Vergara MD\.br\Date and Time Co-Signed: 06/21/2320:27 EST Office/Clinic Note-Physicianon 42-57-0224Sffdau/Clinic Note-Physician [id number]#1.00CD:127NoSouthwest General Health CenterCoding Summary.on 30-05-9205Qmxrxz Summary. CD:056713NQ:3223798BQf5hUp+PGhlYWQ+NN1KQUNcZ40ikJYmvB8QI5yTFY2LQGPVOLEXHE6DFV3dz MM5GLnfA2PvngPh [file] b2xs (more content not included)...[facility] HospitalMRI Spine Lumbar w/o Contraston 98-31-4586MUZ Spine Lumbar w/o ContrastExam Date/Time: 06/09/2022 11:53 EST Reason for Exam: [...] Transcribed by: KENYA Technologist: ADRIEL Technical Comments NoneNoSouthwest General Health CenterConsent for Treatmenton 16-76-4129Jztzrdo for [id number]#1.00CD:127[facility] HospitalRAD - MISCon 72-26-6358ARR - MISC [id number]#1.00CD:127[facility] HospitalRAD - MRI Screening Formon 32-02-9831RHI - MRI Screening Form [id number]#1.00CD:127[facility] HospitalOffice/Clinic Note-Nurseon 94-37-8179Krkoat/Clinic Note-Nurse [id number]#1.00CD:Luh [facility] CampusPhysician Orderon 98-38-9288Hbrlfyamx Order [id number]#1.00CD:JoClinton Memorial HospitalPhysician [id number]#1.00CD:Jo Benito [facility] Midtown CampusCoding Summary.on 38-63-7832Wfadbk Summary. CD:678086RF:5603427VGy4pTd+PGhlYWQ+OJ3MXHVaM44ziWHdtS0SM9bQZS0NDXNQJJDZSW3QSC1ip RE1PPgjK1AkelVu [file] b2xs (more content not included)...[facility] HospitalConsent for Treatmenton 08-87-5742Szqdria for Treatment [id number]#1.00CD:[address] [place], [place] [address]HIPAA Forms Officeon 40-00-2492YUCCI Forms Office [id number]#1.00CD:[address] [place], [place] [address]Legal Correspondence Officeon 42-83-4730Danmu Correspondence Office [id number]#1.00CD:[address] [place], [place] [address]Office/Clinic Note-Physicianon 71-65-8978Vucrzk/Clinic Note-Physician [id number]#1.00CD:[address] [place], [place] [address]Patient History Officeon 16-67-4517Mbwomuf History Office [id number]#1.00CD:[address] [place], [place] [address]Outside Records Officeon 80-79-3886Kodfbfo Records Office [id number]#1.00CD:127[facility] HospitalRadiology Outside Office Copyon 17-82-8134Nztqiawvx Outside Office Copy [id number]#1.00CD:127[facility] HospitalRadiology Outside Office Copy [id number]#1.00CD:127[facility] HospitalReferrals Officeon 37-14-0582Iitiebffo Office [id number]#1.00CD:127[facility] HospitalCT LSPINE WO CONon 04-59-6649OS LSPINE WO CONEXAMINATION: CT LSPINE WO CON HISTORY: Lumbar radiculopathy [...] Electronically authenticated by: WILVER HANNAH Date: 2022-05-04 08:26NoTriHealth Good Samaritan HospitalCT PELVIS WO CONon 70-02-6426ZJ PELVIS WO CONEXAMINATION: CT PELVIS WO CON HISTORY: Lumbar radiculopathy [...] Electronically authenticated by: WILVER HANNAH Date: 2022-05-01 14:57NoTriHealth Good Samaritan HospitalOVA AND PARASITE EXAMINATIONon 2O AND P Exam, Formalin OnlyFinal reportDelaware County HospitalComment on above:Result Comment: Reference Range: None Seen No PVA preserved specimen received. For optimal O and P results we suggest the use of O and P kits containing both formalin and PVA. These kits are available from your dietary services manager.Performed By: #### PANCEF #### [facility] [address] [place] [address] Dr. Fernanda Walsh 1CommentNormalThe [facility]row County HospitalComment on above:Result Comment: No ova, cysts, or parasites seen. . One negative specimen does not rule out the possibility of a parasitic infection.Performed By: #### PANCEF #### [facility] [address] [place] [address] Dr. Fernanda SanonCALPROTECTIN, FECALon 89-23-7718Qglfwkffjubs, Fecal83 ug/gNormal 0-120The [facility] HospitalComment on above:Result Comment: Concentration Interpretation Follow-Up <16 - 50 ug/g Normal None >50 -120 ug/g Borderline Re-evaluate in 4-6 weeks >120 ug/g Abnormal Repeat as clinically indicatedPerformed By: #### CALPOO #### [facility] [address] [place] [address] Dr. Fernanda SanonPANCREATIC ELASTASE FECALon 53-26-0881Efweceampa Elastase, Fecal 415 ug Elast./gNormal>200The [facility] HospitalComharbor beach community hospital on above:Result Comment: Severe Pancreatic Insufficiency: <100 Moderate Pancreatic Insufficiency: 100 - 200 Normal: >200Performed By: #### PANCEF #### [facility] [address] [place] [address] Dr. Fernanda Edwards PANEL (PCR)on 39-01-2094Owdzxzlvbr F 40/41Not detectedNormal NOT DETECTEDThe [facility] County HospitalComment on above:Performed By: #### GIPANEL #### [facility] [address] [place] [address] Dr. Fernanda SanonAstrovirusNot detectedNormalNOT DETECTEDThe [facility] Comment on above:Performed By: #### GIPANEL #### [facility] [address] [place] [address] Dr. Fernanda Sena. Diff toxin A/BNot detectedNormalNOT DETECTEDThe [facility] HospitalComment on above:Performed By: #### GIPANEL #### [facility] [address] [place] [address] Dr. Fernanda AmbrizpylobacterNot detectedNormalNOT DETECTEDThe [facility] Comment on above:Performed By: #### GIPANEL #### [facility] [address] [address] [address] Fernanda MancerayptosporidiumNot detectedNormalNOT DETECTEDThe [facility] HospitalComment on above:Performed By: #### GIPANEL #### [facility] [address] [address] [address] Fernanda Carolinaos. CayetanensisNot detectedNormalNOT DETECTEDThe [facility] HospitalComment on above:Performed By: #### GIPANEL #### [facility] [address] [address] [address] Fernanda Thibodeaux Coli J402Kce ApplicableNormalNot ApplicableThe [facility] HospitalComment on above:Performed By: #### GIPANEL #### [facility] [address] [address] [address] Fernanda Thibodeaux histolyticaNot detectedNormalNOT DETECTEDThe [facility] Comment on above:Performed By: #### GIPANEL #### [facility] [address] [address] [address] Fernanda FelicianoAECNot detectedNormalNOT DETECTEDThe [facility] HospitalComment on above:Performed By: #### GIPANEL #### [facility] [address] [address] [address] Fernanda FelicianoIECNot detectedNormalNOT DETECTEDThe [facility] HospitalComharbor [facility] on above:Performed By: #### JJANEL #### [facility] [address] [address] [address] Fernanda FelicianoPECNot detectedNormalNOT DETECTEDThe [facility] HospitalComment on above:Performed By: #### GIPANEL #### [facility] [address] [address] [address] Fernanda FelicianoTECNot detectedNormalNOT DETECTEDThe [facility] HospitalComment on above:Performed By: #### GIPANEL #### [facility] [address] [address] [address] Fernanda Pino. LambliaNot detectedNormalNOT DETECTEDThe [facility] Comment on above:Performed By: #### GIPANEL #### [facility] [address] [address] [address] Fernanda GARCIAPASSMemorial Health System Marietta Memorial HospitalComment on above:Performed By: #### SHANNONL #### [facility] [address] [address] [address] Fernanda Bolaños LADI HEADERGI [facility] Comment on above:Performed By: #### SHANNONL #### [facility] [address] [address] [address] Fernanda Roman ECOLIGI PANEL DIARRHEAGENIC E.COLI / SHIGELLADelaware County HospitalComment on above:Performed By: #### SHANNONL #### [facility] [address] [address] [address] Fernanda Roman INFOSt. Elizabeth HospitalComment on above: Result Comment: EAEC- Enteroaggregative E. Coli EPEC- Enteropathogenic E. Coli ETEC- Enterotoxigenic E. Coli lt/st STEC- Shigella-like toxin-producing E. Coli stx1/stx2 EIEC- Shigella/Enteroinvasive E. ColiPerformed By: #### EFFIE #### [facility] [address] [place] [address] Dr. Fernanda Roman PARASITESGI [facility] Comment on above:Performed By: #### EFFIE #### [facility] [address] [address] [address] Fernanda Roman VIRUSGI PANEL VIRUSESDelaware County HospitalComment on above:Performed By: #### JJANEL #### [facility] [address] [address] [address] Fernanda Wrightvirus GI/GIINot detectedNormalNOT DETECTEDCleveland Clinic Akron GeneralComharbor beach community hospital on above:Performed By: #### SHANNONL #### [facility] [address] [address] [address] Fernanda Garzon ShigelloidesNot detectedNormalNOT DETECTEDThe [facility] HospitalComment on above:Performed By: #### JJANEL #### [facility] [address] [address] [address] Fernanda SannoRotavirus ANot detectedNormalNOT DETECTEDThe [facility] Comment on above:Performed By: #### GIPANEL #### [facility] [address] [address] [address] Fernanda SanonSalmonellaNot detectedNormalNOT DETECTEDCleveland Clinic [facility] General Comment on above:Performed By: #### GIPANEL #### [facility] [address] [address] [address] Fernanda SanonSapovirusNot detectedNormalNOT DETECTEDCleveland Clinic [facility] General Comment on above:Performed By: #### GIPANEL #### [facility] [address] [address] [address] Fernanda SanonSTECNot detectedNormalNOT DETECTEDThe [facility] HospitalComment on above:Performed By: #### GIPANEL #### [facility] [address] [address] [address] Fernanda HaqbrioNot detectedNormalNOT DETECTEDThe [facility] HospitalComment on above:Performed By: #### GIPANEL #### [facility] [address] [address] [address] Fernanda Atkinsonio CholeraNot detectedNormalNOT DETECTEDCleveland Clinic [facility] Comment on above:Performed By: #### GIPANEL #### [facility] [address] [address] [address] Fernanda Vasquez. EnterocoliticaNot detectedNormalNOT DETECTEDThe [facility] HospitalComment on above:Performed By: #### GIPANEL #### [facility] [address] [address] [address] Fernanda SanonPOINT OF CARE GLUCOSEon 16-10-9715Qmuynry [Mass/Vol]81 mg/dL Jovvqj71-534Fjl [facility] HospitalComment on above:Performed By: #### PANCEF #### [facility] [address] [address] [address] Fernanda SanonXR FOOT BOWEN MIN 3 VIEWSon 85-50-3546BZ FOOT BOWEN MIN 3 VIEWS EXAMINATION: XR [...] Electronically authenticated by: WILVER HANNAH Date: 2022-03-24 12:02Del[facility] County HospitalGLYCOHEMOGLOBIN A1Con 31-97-0715OXC RECOMMENDATIONSEE BELOW NormalThe [facility] HospitalComharbor beach community hospital on above:Result Comment: ADA RECOMMENDED LIMIT 4.0 - 6.0 ADA THERAPEUTIC TARGET < 7.0 ACTION SUGGESTED > 7.0Performed By: #### PANCEF #### [facility] [address] [place] [address] Dr. Fernanda SanonGlucose [Mass/Vol]148 mg/dLDelaware County HospitalComharbor beach community hospital on above:Performed By: #### PANCEF #### [facility] [address] [address] [address] Fernanda SanonHbA1c (Bld) [Mass fraction]6.8 %Critically high4.5-6.2The [facility] County HospitalComment on above:Performed By: #### PANCEF #### [facility] [address] [address] [address] Fernanda SanonLIPID PROFILEon 34-30-0470LTIH-HDL RATIO NORMSEE BELOWDelaware County HospitalComharbor beach community hospital on above:Result Comment: 3.3 - 4.4 LOW RISK 4.4 - 7.1 AVERAGE RISK 7.1 - 11.0 MODERATE RISK >11.0 HIGH RISKPerformed By: #### LIPID, TSH, BMP #### [facility] [address] [address] [address] Fernanda SanonCholesterol [Mass/Vol]141 mg/dLNormal<=200The [facility] Comment on above:Performed By: #### LIPID, TSH, BMP #### [facility] [address] [address] [address] Fernanda SanonCholesterol in HDL [Mass/Vol]74 mg/dLCritically rafj87-65Igs [facility] HospitalComment on above:Performed By: #### LIPID, TSH, BMP #### [facility] [address] [address] [address] Fernanda SanonCholesterol in LDL [Mass/Vol]57.6 mg/dLNoTriHealth Good Samaritan HospitalComment on above:Performed By: #### LIPID, TSH, BMP #### [facility] [address] [address] [address] Fernanda Mitchellesteremperatriz.total/Cholesterol in HDL [Mass ratio]1.9 {ratio} NormalThe [facility] HospitalComment on above:Performed By: #### LIPID, TSH, BMP #### [facility] [address] [address] [address] Fernanda Pitts NORMAL> or = 60 mg/dl - LOW CARDIOVASCULAR RISK <40 mg/dl - HIGH CARDIOVASCULAR RISKDelaware County HospitalComment on above:Performed By: #### LIPID, TSH, BMP #### [facility] [address] [address] [address] Fernanda SanonLDL CALC NORMALSEE BELOWNoTriHealth Good Samaritan HospitalComment on above:Result Comment: <100 mg/dl OPTIMAL 100 - 129 mg/dl NEAR OR ABOVE OPTIMAL 130 - 159 mg/dl BORDERLINE HIGH 160 - 189 mg/dl HIGH >190 mg/dl VERY HIGH Performed By: #### LIPID, TSH, BMP #### [facility] [address] [address] [address] Fernanda SanonTriglyceride [Mass/Vol]47 mg/dLNormal<=150The [facility] Comment on above:Performed By: #### LIPID, TSH, BMP #### [facility] [address] [address] [address] Fernanda SanonVLDL CALC9.4 mg/dLNormalThe [facility] HospitalComment on above: Performed By: #### LIPID, TSH, BMP #### [facility] [address] [address] [address] Fernanda DennisALBUMIN, RAND URon 85-24-6295rKQI7.3 mg/LNormal<=30.0The [facility] HospitalComment on above:Performed By: #### MALBR #### [facility] [address] [address] [address] Fernanda SanonPROF CHEM 8 (BAS METB)on 37-01-8697Okzzf gap [Moles/Vol]12.6 mmol/LNormalThe [facility] HospitalComment on above:Performed By: #### LIPID, TSH, BMP #### [facility] [address] [address] [address] Fernanda SanonCalcium [Mass/Vol]9.7 mg/dLNormal8.5-10.1The [facility] Comment on above:Performed By: #### LIPID, TSH, BMP #### [facility] [address] [address] [address] Fernanda SanonChloride [Moles/Vol]104 mmol/YUytgla22-555Xra [facility] Comment on above:Performed By: #### LIPID, TSH, BMP #### [facility] [address] [address] [address] Fernnada SanonCO2 [Moles/Vol]29.2 mmol/AJjolmb21.0-32.0The [facility] Comment on above:Performed By: #### LIPID, TSH, BMP #### [facility] [address] [address] [address] Fernanda SanonCreatinine [Mass/Vol]1.20 mg/dLCritically high0.55-1.02The [facility] HospitalComment on above:Performed By: #### LIPID, TSH, BMP #### [facility] [address] [address] [address] Michael ChangEGFR-AF OJKFTNBO46 mL/min/1.00e8Fkhhkoobnw low>=60The [facility] HospitalComment on above:Performed By: #### LIPID, TSH, BMP #### [facility] [address] [place] [address] Dr. Fernanda FelicianoGFR-NON AF ZTCGTCGE29 mL/min/1.05k7Qrlkjeyxhf low>=60The [facility] HospitalComment on above:Performed By: #### LIPID, TSH, BMP #### [facility] [address] [place] [address] Dr. Fernanda SanonGlucose [Mass/Vol]122 mg/dLCritically yain74-748Gas [facility] HospitalComment on above:Performed By: #### LIPID, TSH, BMP #### [facility] [address] [place] [address] Dr. Fernanda SanonPotassium [Moles/Vol]4.8 mmol/LNormal3.5-5.1The [facility] Comment on above:Performed By: #### LIPID, TSH, BMP #### [facility] [address] [place] [address] Dr. Fernanda Gonzalezdium [Moles/Vol]141 mmol/MKojxhp804-876Mtc [facility] Comment on above:Performed By: #### LIPID, TSH, BMP #### [facility] [address] [place] [address] Dr. Fernanda SanonUrea nitrogen [Mass/Vol]39.0 mg/dLCritically high7.0-18.0The [facility] HospitalComment on above:Performed By: #### LIPID, TSH, BMP #### [facility] [address] [place] [address] Dr. Fernanda Banerjee nitrogen/Creatinine [Mass ratio]32.5 mg/mgNormalThe [facility] HospitalComment on above:Performed By: #### LIPID, TSH, BMP #### [facility] [address] [place] [address] Dr. Fernanda Calvin 88-60-4087GZG9.050 uIU/mLNormal0.358-3.740The [facility] HospitalComment on above:Performed By: #### LIPID, TSH, BMP #### [facility] [address] [address] [address] Fernanda SanonPOINT OF CARE GLUCOSEon 25-93-0714Elelvur [Mass/Vol]124 mg/dL Critically wdfo54-817Blq [facility] HospitalComment on above:Performed By: #### PANCEF #### [facility] [address] [address] [address] Fernanda SanonUrinalysis with Microscopicon 34-82-1902Mfdzpugik UrineNegative NEGATIVEBON SECOURS [facility] HEALTHColor, UAYellowYellowBON SECOURS [facility] Epithelial Cells UA0 TO 2B[facility] [address] HEALTHGlucose, UrNegativeNEGATIVEB[facility] SECOURS [facility] HEALTHInterpretation and review of laboratory resultsAbnormalBON SECOURS MERCY HEALTHKetones Ql (U)TRACEAbnormalNEGATIVEBON SECOURS [facility], AVONEnertec Systems HEALTH Leukocyte esterase Test strip Ql (U)NegativeNEGATIVEB[facility]OU[facility] [facility] Mucus, UA1+AbnormalNoneB[facility] HEALTHNitrite, UrineNegativeNEGATIVEB[facility] SECOURS MERCY HEALTHpH, UA6.05 - 9[facility] HEALTHProtein, UANegative NEGATIVEBON SECOURS [address] HEALTHRBC, UA0 TO 2[facility] HEALTHSpecific [place], UAHigh1.01 - 1.02[facility] HEALTHTurbidity UAClearClearBON SECOURS [facility] HEALTHUrine HgbNegativeNEGATIVEBON SECOURS [facility], AVONEnertec Systems HEALTH Urobilinogen, UrineNormalNormalBON SECOURS MERCY HEALTHWBC, UA0 TO 2[facility] HEALTHB[facility] HEALTHMG MAMM SCREEN 3D BOWEN CADon 90-47-3818LJ MAMM SCREEN 3D BOWEN CADPatient: ASHLEE BANERJEE Exam Date: 12/25/2021 : 1950 Gender:F Ordering : DR DESTINEE COUGHLIN [facility] Admission #: [id number] Family : Order #: [id number] CLICK HERE TO VIEW EXAM RADIOLOGY REPORT [...] thyroid cancer at age 62. LOCATION: [facility] BREAST COMPOSITION: Heterogeneously dense,which may obscure [...] by: Nikko Barbosa M.D. on 12/26/2021 at 11:11[facility] County HospitalUrinalysis with Microscopicon 11-18-2021-[facility] Bacteria, UA2+AbnormalNoneB[facility] HEALTHBilirubin UrineNegative NEGATIVEB[facility]RS [facility] HEALTHColor, UAYellowYellowB[facility] Epithelial Cells UA2 TO 5[facility] HEALTHGlucose, UrNegativeNEGATIVEB[facility] HEALTHInterpretation and review of laboratory resultsAbnormalB[facility] SEC[facility]RS [facility] HEALTHKetones Ql (U)TRACEAbnormalNEGATIVEB[facility] Leukocyte esterase Test strip Ql (U)NegativeNEGATIVEB[facility] Mucus, UA2+AbnormalNoneB[facility] HEALTHNitrite, UrineNegativeNEGATIVEB[facility] HEALTHpH, UA5.5[facility]ALTHProtein, UATRACEAbnormal NEGATIVEBON SECOURS MERCY HEALTHRBC, UA0 TO 2[facility] HEALTHSpecific [place], UA>1.030HighBON SECOURS MERCY HEALTHTurbidity UAClearClearB[facility] SECOURS MERCY HEALTHUrine HgbNegativeNEGATIVEB[facility]OURS [facility] HEALTHUrobilinogen, Urine NormalNormalB[facility] SECOURS MERCY HEALTHWBC, UA0 TO 2[facility] HEALTHB[facility] SECOURS MERCY HEALTHPOINT OF CARE GLUCOSEon 88-23-2867Rhzrxtd [Mass/Vol]105 mg/wKPbzooi54-507Jbs [facility] HospitalComment on above:Performed By: #### PANCEF #### [facility] [address] [place] [address] Dr. Fernanda Bishop Metabolic Panelon 25-90-4666Itahz gap [Moles/Vol]10 mmol/L9 - 17 mmol/LMercy HealthCalcium [Mass/Vol]10.2 mg/dL8.6 - 10.4 mg/dLMercy Health Chloride [Moles/Vol]105 mmol/L98 - 107 mmol/LMercy HealthCO2 [Moles/Vol]26 mmol/L20 - 31 mmol/LMercy HealthCreatinine [Mass/Vol]1.01 mg/dLHigh0.50 - 0.90 mg/dLMercy HealthGFR >60>60 mL/minMercy HealthGFR Non- Uujaeyyd15 mL/minLow>60Mercy HealthGlucose [Mass/Vol]102 mg/uQWtrb09 - 99 mg/dL Mercy HealthInterpretation and review of laboratory resultsAbnormalMerGroup Health [facility] Potassium [Moles/Vol]4.1 mmol/L3.7 - 5.3 mmol/LMercy HealthSodium [Moles/Vol]141 mmol/L135 - 144 mmol/LMercy HealthUrea nitrogen (BldV) [Mass/Vol]32 mg/dLHigh8 - 23 mg/dLMercy HealthUrea nitrogen/Creatinine (Bld) [Mass ratio]32HighMer HealthMercy HealthCBC Auto Differentialon 56-85-3727Rybizlux Eos #0.26Mercy HealthAbsolute Immature Granulocyte<0.03Mercy HealthAbsolute Lymph #1.09LowMercy HealthAbsolute [place] #0.54Mercy HealthBasophils (Bld) [#/Vol]0.05 10*3/uLMercy HealthBasophils/100 WBC (Bld)1 %0 - 2 %Mercy HealthEosinophils/100 WBC (Bld)4 %1 - 4 %Mercy HealthHematocrit (Bld) [Volume fraction]40.2 %36.3 - 47.1 %Mercy HealthHemoglobin.gastrointestinal spec 1 Ql (Stl)12.3 g/dL11.9 - 15.1 g/dLDunlap Memorial HospitalImmature granulocytes/100 WBC (Bld)0 %0Dunlap Memorial HospitalInterpretation and review of laboratory resultsAbnormalDunlap Memorial HospitalLymphocytes/100 WBC (Bld)18 %Low 24 - 43 %[facility] Medical CenterH (RBC) [Entitic mass]29.4 pg25.2 - 33.5 pgDunlap Memorial Hospital MCHC (RBC) [Mass/Vol]30.6 g/dL28.4 - 34.8 g/dLWright-Patterson Medical CenterV (RBC) [Entitic vol]95.9 fL82.6 - 102.9 fLDunlap Memorial HospitalMonocytes/100 WBC (Bld)9 %3 - 12 %[facility] Memorial HospitalNRBC Automated0.00.0 per 100 WBCDunlap Memorial HospitalPlatelet distribution width (Bld) [Ratio]12.5 %11.8 - 14.4 %[facility] Memorial HospitalPlatelets (Bld) [#/Vol]See Reflexed IPF ResultDunlap Memorial HospitalRBC (Bld) [#/Vol]4.19 10*6/uL3.95 - 5.11 m/[facility] Segmented neutrophils/100 WBC (Bld)69 %High36 - 65 %Dunlap Memorial HospitalSegs Absolute 4.26Dunlap Memorial HospitalWBC (Bld) [#/Vol]6.2 10*3/uLTrumbull Regional Medical Center HealthEKG 12 Lead Ordered By: Moni Wilson on 51-80-6612Ortzyp Rrxf47STABrlvp Health Work Phone: P Jwhm43aznwrsrOcdxp Health Work Phone: P-R Iyzlbbcs008 msMercy Health Work Phone: Q-T Wotfyqsa911 [employer] Health Work Phone: QRS Ytkvifcq21 msMercy Health Work Phone: QTc Calculation (Milena)392 msMercy Health Work Phone: R Dyal72ndxmqecXxlby Health Work Phone: T Ymkv89xeylqzdGkmik Health Work Phone: Ventricular Caet21QZBDruqz Health Work Phone: MerVidcaster Work Phone: EKG 12 Leadon 67-57-6980Okszjb sinus rhythm Possible Left atrial enlargement Borderline ECG When compared with ECG of 16-MAR-2016 09:54, No significant change was found Confirmed by MONI WILSON ([id number]) on 07/23/2021 1:56:02 PMST[facility] RAD[facility] Moni Wilson MD - 07/23/2021 Normal sinus rhythm Possible Left atrial enlargement Borderline ECG When compared with ECG of 16-MAR-2016 09:54, No significant change was found Confirmed by MONI WILSON ([id number]) on 07/23/2021 1:56:02 PMAvita Health System Buzz360 Work Phone: Immature Platelet Fractionon 10-13-6736Ophsoywbyuoveb and review of laboratory resultsAbnormalDunlap Memorial HospitalPlatelet, Wpwjtnkmqdwc275Vsh Dun[facility] Memorial HospitalPlatelet, Immature Fraction3.7 %1.1 - 10.3 %[facility] - Chemistry and Chemistry - challengeon 04-19-5588OBC/1.73 sq M.predicted MDRD (S/P/Bld) [Vol rate/Area][facility] Memorial HospitalComment on above:Average GFR for 70 or more years old: 75 mL/min/1.73sq m Chronic Kidney Disease: <60 mL/min/1.73sq m Kidney failure: <15 mL/min/1.73sq m eGFR calculated using average adult body mass. Additional eGFR calculator available at: http://www.RoommateFit.Traity/multiple_crcl_2012.htm Stage 1: Some kidney damage normal GFR Stage 2: Mild kidney damage GFR 60-89 Stage 3: Moderate kidney damage GFR 30-59 Stage 4: Severe kidney damage GFR 15-29 Stage 5: Severe kidney damage GFR <15 ESRD - chronic treatment by dialysis or transplant Urinalysis With Microscopicon 11-01-2766Nmwkoqbhi, UANOT REPORTEDNoneMey Health- [place], KYBacteria, UANOT REPORTEDNoneMey Health- [place], KYBilirubin Urine NegativeNEGATIVEMercy Health- [place], KYCasts UANOT REPORTED/LPFMercy Health- [place], [place] Color, UAYELLOWYELLOWMercy Health- [place], KYCrystals, UANOT REPORTEDNone /HPFMercy Health- [place], KYEpithelial Cells UA0 TO 2[facility]- [place], KYGlucose, UrNegative NEGATIVEMercy Health- [place], KYInterpretation and review of laboratory results AbnormalMercy Health- [place], KYKetones Ql (U)TRACEAbnormalNEGATIVEMercy Health- [place], KYLeukocyte esterase Test strip Ql (U)MODERATEAbnormalNEGATIVEMercy Health- [place], KYMucus, UANOT REPORTEDNoneMercy Health- [place], KYNitrite, UrineNegativeNEGATIVE [facility]- [place], KYOther Observations UANOT REPORTEDNOT REQ.[facility]- [place], KYpH, UA5.5[facility]- [place], KYProtein (U) [Mass/Vol]NegativeNEGATIVEMercy Health- [place], KYRBC (U) [#/Vol]0 TO 2[facility]- [place], KYRenal Epithelial, UANOT REPORTED0 /HPFMercy Health- [place], KYSpecific [place], UA>1.030HighMercy Health- [place], KYTrichomonas, UANOT REPORTEDNoneMercy Health- [place], KYTurbidity UACLEARCLEAR [facility]- [place], KYUrinalysis CommentsNOT REPORTEDMercy Health- [place], KYUrine Hgb NegativeNEGATIVEMercy Health- [place], KYUrobilinogen, UrineNormalNormalMercy Health- [place], KYWBC, UA5 TO 10[facility]- [place], KYYeast, UANOT REPORTEDNoneMercy Health- [place], [place]-[facility]- [place], KYOtheron 74-33-3106Bogjoobxokhh bowel-gas pattern. Indeterminate right upper quadrant calcification most likely reflects cholelithiasis, as seen on prior CT. Possible calculus versus vascular calcification overlying the left renal shadow. No stone at this level on CT 1 year ago.[facility]- [place], KYEXAMINATION: ONE SUPINE XRAY VIEW(S) OF THE ABDOMEN 02/24/2019 2:30 pm COMPARISON: CT abdomen 02/27/2018 HISTORY: ORDERING SYSTEM PROVIDED HISTORY: Renal stones TECHNOLOGIST PROVIDED HISTORY: renal stone FINDINGS: 2 images are presented. Unremarkable bowel gas pattern. Nonspecific approximately 12 x15 mm stippled calcification overlying the right upper quadrant could reflect gallstones, upper pole renal calculus or lymph node. Approximate 2 mm calcific density overlies the inferior left renal shadow. No unusual abdominal or pelvic soft tissue or calcific density is seen. Visualized osseous structures appear unremarkable. Stimulator power pack is noted over the right iliac wing, lead overlying the inferior right sacrum.[facility], [place] Souleymane, Mhpn Incoming Radiant Results From [employer] - 02/24/2019 3:08 PM EDT EXAMINATION: ONE [...] this level on CT 1 year ago. [facility], KYUrinalysis with Microscopicon 95-29-1307Bfzyoydwa, UANOT REPORTEDNoneMeAdena Fayette Medical Center [place], KYBacteria, UANOT REPORTEDNoneMeKettering Health – [facility], [place] Bilirubin UrineNegativeNEGATIVEWhite Hospital [place], KYCasts UANOT REPORTED/LPFMMercy Health Lor[facility] [place], KYColor, UAYELLOWYELLOWDunlap Memorial Hospital- [place], KYCrystals UANOT REPORTED None /HPFDunlap Memorial Hospital- [place], KYEpithelial Cells UA0 TO 2MSelect [facility]ty [facility] [place]- [place], [place] Glucose, UrNegativeNEGATIVEAvita Health System Health- [place], KYInterpretation and review of laboratory resultsAbnormalDunlap Memorial Hospital- [place], KYKetones Ql (U)NegativeNEGATIVE [facility], KYLeukocyte esterase Test strip Ql (U)SMALLAbnormalNEGATIVE [facility]- [place], KYMucus, UANOT REPORTEDNoneMercy Health- [place], KYNitrite, Urine NegativeNEGATIVEMercy Health- [place], KYOther Observations UANOT REPORTEDNOT REQ. [facility]- [place], KYpH, UA5.5[facility]- [place], KYProtein (U) [Mass/Vol]Negative NEGATIVEMercy Health- [place], KYRBC (U) [#/Vol]0 TO 2[facility]- [place], KYRenal Epithelial, UrineNOT REPORTED0 /HPFMercy Health- [place], KYSpecific [place], UA1.020 [facility]- [place], KYTrichomonas, UANOT REPORTEDNoneMercy Health- [place], KYTurbidity UACLEARCLEARMercy Health- [place], KYUrinalysis CommentsNOT REPORTEDMercy Health- [place], KYUrine HgbNegativeNEGATIVEMercy Health- [place], KYUrobilinogen, UrineNormal NormalMercy Health- [place], KYWBC, UA2 TO 5[facility]- [place], KYYeast, UANOT REPORTED NoneMercy Health- [place], [place]-[facility]- [place], [place] Vital Signs Date TimeVital SignValuePerforming LbeptbizfTukouucq91-15-3474 13:28-0500Body zrybhg705.94 Marilou Mckeon APRN Work Phone: [phone] [place], [place] 2702711-09-2025 13:28-0500 Body mass index (BMI) [Ratio]29.7 kg/n6YopvkuTammy Mckeon APRN Work Phone: [phone]11-09-2025 13:28-0500 Body nqboycmpqwi87.8 [degF]Tammy Mckeon APRN Work Phone: [facility]11-09-2025 13:28-0500 Body zxkiox55.24 kgTammy Mckeon APRN Work Phone: 1(678)860-[address] [place], [place] 2702711-09-2025 13:28-0500 Diastolic blood mkscfrty92 mm[Hg]Tammy Mckeon APRN Work Phone: [phone]11-09-2025 13:28-0500 Heart rate98 /minTammy Mckeon APRN Work Phone: [facility]11-09-2025 13:28-0500 Respiratory rate19 /Andres Mckeon VARNISH MAKER HELPER Work Phone: [facility]11-09-2025 13:28-0500 SaO2% (BldA) [Mass fraction]98 %Tammy Mckeon WM Work Phone: 1(484)519-[address] [place], [place] 2702711-09-2025 13:28-0500 Systolic blood rmrqurhn239 mm[Hg]Tammy Mckeon WM Work Phone: [phone]10-29-2025 08:45-0400 SaO2% (BldA) [Mass fraction]97 %Sandra Alvarenga MD Work Phone: [phone])[address] [place], [place] 5560110-29-2025 08:30-0400 Diastolic blood yifqrzfq28 mm[Hg]Sandra Alvarenga MD Work Phone: 1([phone])[address] [place], [place] 5560110-29-2025 08:30-0400Systolic blood wvugkdfb565 mm[Hg]Sandra Alvarenga MD Work Phone: 1(394)[facility]86[facility]10-29-2025 08:05-0400Body pcowzijpqtg75.39 [degF]Sandra Alvarenga MD Work Phone: 1(484)[address] [place], [place] 5560110-29-2025 08:05-0400Heart rate69 /Joshua Alvarenga MD Work Phone: 1(547)[address] [place], [place] 5560110-29-2025 08:05-0400 Respiratory rate18 /Joshua Alvarenga MD Work Phone: 1(594)[facility]42[facility]10-29-2025 06:54-0400Body efchwl521.9 Kathy Alvarenga MD Work Phone: [phone]42[facility]10-29-2025 06:54-0400Body mass index (BMI) [Ratio]29.74 kg/t0FlpijpSandra Alvarenga MD Work Phone: [facility]10-29-2025 06:54-0400Body ataena14.4 kgThomas Colette FOSTER Work Phone: [facility]05-13-2025 12:00-0400Body fcxmqbxpusc65.8 [degF]Juice Melendez MD Work Phone: 1(520)333-[address] [place], [place] 0212905-13-2025 12:00-0400Heart rate 74 /minSandres Melendez MD Work Phone: 1(589)261-[address] [place], [place] 0212905-13-2025 12:00-0400 Respiratory rate21 /Matthew Melendez MD Work Phone: 1([phone])[address]05-13-2025 11:35-0400Diastolic blood wdwemaoa66 mm[Hg]Juice Melendez MD Work Phone: 1(607)[address]05-13-2025 11:35-0400Systolic blood mm[Hg]Juice Melendez MD Work Phone: 1(533)316-[address] [place], [place] 0212905-13-2025 06:00-0400Body mass index (BMI) [Ratio]30.23 kg/x8Ixbxzkpotis Melendez MD Work Phone: 1(875)042-[address] [place], [place] 0212905-13-2025 06:00-0400Body qywnxl51.58 kgSaotis Melendez MD Work Phone: 1(455)[address]05-12-2025 15:15-1540UeO7% (BldA) [Mass fraction]100 %Juice Melendez MD Work Phone: 1(062)992-[address] [place], [place] 0212905-09-2025 18:00-0400Heart rate 76 /Margot Eller MD Work Phone: [facility]05-09-2025 18:00-0400 Respiratory rate19 /Margot Eller MD Work Phone: [facility]05-09-2025 18:00-0827BkS0% (BldA) [Mass fraction]98 %Cooper Eller MD Work Phone: [facility]05-09-2025 17:30-0400Diastolic blood fwkfyiac68 mm[Hg]Cooper Eller MD Work Phone: [facility]05-09-2025 17:30-0400Systolic blood zojixjzj744 mm[Hg]Cooper Eller MD Work Phone: [facility]05-09-2025 15:45-0400Body zmzyjttqnxu158 [degF]Cooper Eller MD Work Phone: [facility]05-09-2025 07:01-0400Body hvijke404.9 cmCooper Eller MD Work Phone: [facility]05-09-2025 03:31-0400Body mass index (BMI) [Ratio]29.3 kg/m2Cooper Eller MD Work Phone: [facility]05-09-2025 03:31-0400Body .3 kgCooper Eller MD Work Phone: [facility]04-30-2025 14:30-0400Diastolic blood bevglljv13 mm[Hg]Rylie Whipple II, MD Work Phone: [phone]-30-2025 14:30-0400Heart rate82 /Laurie Whipple II, MD Work Phone: [facility]04-30-2025 14:30-9228BaK6% (BldA) [Mass fraction]97 %Rylie Whipple II, MD Work Phone: 1(462)217-[address] [place], [place] 2838604-30-2025 14:30-0400Systolic blood ycoixblx028 mm[Hg]Rylie Whipple II, MD Work Phone: 1(260)077-[address] [place], [place] 2838604-30-2025 13:00-0400 Respiratory rate16 /Laurie Whipple II, MD Work Phone: [facility]07-08-2024 13:17-0400Body .9 cmSsegun Cordoba MD Work Phone: 1(744)[facility]6255[facility]07-08-2024 13:17-0400Body mass index (BMI) [Ratio]26.07 kg/m2Lakisha Cordoba MD Work Phone: 1(471)[facility]6255[facility]07-08-2024 13:17-0400Body vtcslwfeagr24.4 [degF]Lakisha Cordoba MD Work Phone: 1([phone])[address] [place], [place] [address]07-08-2024 13:17-0400Body .6 kgLakisha Cordoba MD Work Phone: 1(795)[address] [place], [place] [address]07-08-2024 13:17-0400 Diastolic blood vytrfeid36 mm[Hg]Lakisha Cordoba MD Work Phone: 1(703)[address] [place], [place] 1841107-08-2024 13:17-0400Heart rate76 /Mendoza Cordoba MD Work Phone: 1(329)[address] [place], [place] 1841107-08-2024 13:17-8538ZbF2% (BldA) [Mass fraction]99 %Lakisha Cordoba MD Work Phone: 1(196)[address] [place], [place] [address]07-08-2024 13:17-0400Systolic blood mm[Hg]Lakisha Cordoba MD Work Phone: 1(713)[address] [place], [place] [address]10-31-2023 19:08-0400Heart rate77 /minDee Mireles VARNISH MAKER HELPER-WET ROLLER Work Phone: [phone]lQneccp25-98-2263 10:41-0400Body ytbern530.9 cm Dee Mireles APRN-WET ROLLER Work Phone: YdtqzSoudai06-425510DivnnTtkwtz07-54-1111 10:41-0400Body mass index (BMI) [Ratio]30.04 kg/x3VllmnsyqmDee Mireles APRN-WET ROLLER Work Phone: EqkzlKapzns40-750667XjrfeVpvsly89-09-2701 10:41-0400Body drjkvyqbdev63.01 [degF]Dee Mireles VARNISH MAKER HELPER-WET ROLLER Work Phone: [phone]zRkwkvl26-90-8554 10:41-0400Body .12 kg Dee Mireles VARNISH MAKER HELPER-WET ROLLER Work Phone: [phone]nTrbupt30-56-9512 10:41-0400Diastolic blood iwunjfkg30 mm[Hg]Dee Mireles VARNISH MAKER HELPER-WET ROLLER Work Phone: [phone]lOmxhxb64-97-1471 10:41-0400Heart rate79 /min Dee Mireles VARNISH MAKER HELPER-WET ROLLER Work Phone: [phone]gxJhexuv87-72-6090 10:41-0400Respiratory rate12 /minKiaisha Mireles VARNISH MAKER HELPER-WET ROLLER Work Phone: [phone]493HplxiBmxheh34-67-3188 10:41-7178QeB7% (BldA) [Mass fraction]100 %Dee Mireles VARNISH MAKER HELPER-WET ROLLER Work Phone: [phone]fEtpfaq22-51-5616 10:41-0400Systolic blood eqxqauyb099 mm[Hg]Dee Mireles VARNISH MAKER HELPER-WET ROLLER Work Phone: [phone]aBlpddi70-19-6660 09:57-0400Diastolic blood snasmwpg81 mm[Hg]Gerry Jerry [facility]06-20-2023 09:57-0400Heart rate68 /minLauroelvira Rosalino [facility]06-20-2023 09:57-0400Mean blood iavjjhlj13 mm[Hg]Gerry Jerry [facility]06-20-2023 09:57-0400 Respiratory rate16 /minGerry Jerry [facility]06-20-2023 09:57-0400 Systolic blood qzipyaie411 mm[Hg]Gerry Jerry [facility]01-24-2023 13:42-0500 Diastolic blood ndhnkqux59 mm[Hg]Janie Henning [facility]01-24-2023 13:42-0500Heart rate65 /minAmanda Henning [facility]01-24-2023 13:42-0500Mean blood mrwqewsn02 mm[Hg]Janie Henning [facility]01-24-2023 13:42-0500 Respiratory rate18 /minAmanda Henning [facility]01-24-2023 13:42-0500 Systolic blood ncxfpohy630 mm[Hg]Janie Henning [facility]12-27-2022 12:15-0500 Diastolic blood uhudpaen10 mm[Hg]Geri Jai [facility]12-27-2022 12:15-0500Heart rate62 /minGeri Vergara [facility]12-27-2022 12:15-0500Mean blood mm[Hg]Geri Vergara [facility]12-27-2022 12:15-0500 Respiratory rate18 /minGeri Vergara [facility]12-27-2022 12:15-0500 Systolic blood zscjonyb991 mm[Hg]Geri Vergara [facility]03-15-2022 16:30-0400 Diastolic blood jjvyjuch41 mm[Hg]Sandra Alvarenga MD Work Phone: [facility]Nnoxhn80-[facility]-9433 16:30-0400Heart rate71 /min Sandra Alvarenga MD Work Phone: [place] [address]Siwvzg02-04-0127 16:30-0400Respiratory rate18 /minThhadley Alvarenga MD Work Phone: [place] [address]Paksmh34-94-8814 16:30-6078MwO6% (BldA) [Mass fraction]98 %Sandra Alvarenga MD Work Phone: [place] [address]Ufzgzq27-82-4876 16:30-0400Systolic blood wfcaybnw618 mm[Hg]Sandra Alvarenga MD Work Phone: [place] [address]Dmvspp69-74-9194 15:50-0400Body drixglcpqfn33.1 [degF]Sandra Alvarenga MD Work Phone: [place] [address]Rqnwto42-93-9265 12:44-0400Body felnhu930.9 cm Sandra Alvarenga MD Work Phone: [place] [address]Izhgqe33-30-3569 12:44-0400Body mass index (BMI) [Ratio]30.12 kg/g2HilszcSandra Alvarenga MD Work Phone: [place] [address]Lvimcw70-96-1482 12:44-0400Body .3 kg Sandra Alvarenga MD Work Phone: [place] [address]Qokdyy86-43-0074 09:04-0500Body yqovvn550.9 cm Sandra Alvarenga MD Work Phone: [place] [address]Jxdjpr48-49-0730 09:04-0500Body mass index (BMI) [Ratio]30.89 kg/r2TemienSandra Alvarenga MD Work Phone: [place] [address]Vvkdaf93-97-9267 09:04-0500Body rjjercznoyq92.11 [degF]Sandra Alvarenga MD Work Phone: [place] [address]Omoagf55-84-0416 09:04-0500Body ydpizi44.16 kg Sandra Alvarenga MD Work Phone: [place] [address]Obhrpt03-13-7826 09:04-0500Diastolic blood mm[Hg]Sandra Alvarenga MD Work Phone: [place] [address]Fbsqcd81-53-9762 09:04-0500Heart rate77 /min Sandra Alvarenga MD Work Phone: [facility] Gtsvsb81-69-9843 09:04-0500Respiratory rate20 /minSandra Alvarenga MD Work Phone: [facility] HospitalPetxhg04-10-1776 09:04-6175MiZ8% (BldA) [Mass fraction]99 %Sandra Alvarenga MD Work Phone: [facility] Uvskvt35-02-6483 09:04-0500Systolic blood mm[Hg]Sandra Alvarenga MD Work Phone: [facility] CampusVidcasterRkxkqq35-90-5749 16:39-0500BMI (Body Mass Index) 33.25 kg/r3Snmzox [employer] Work Phone: [phone] 16:39-0500Body sehfbb49.83 kgRobert Daegis Work Phone: [phone] 16:39-0500BP Lngqtcwlk86 mm[Hg][employer] 19-145579-14417688-69-9551 16:39-0500BP Dtobjxqq359 mm[Hg][employer] Work Phone: [phone] 16:39-0500BSA (Body Surface Area)1.85 m2 Vladimir [employer] Work Phone: [phone] 16:39-5381Qdypyy101.94 cmRobert Daegis 58-760579-47621614-87-2863 16:39-0500Pulse (Heart Rate)88 /minRoblea regional medical center [employer] 54-695648-00626505-46-4780 16:05-0400BMI (Body Mass Index)33.82 kg/m2 [employer] Work Phone: [phone] 16:05-0400Body Zvhgcuhofqz83.4 [degF]Vladimir [facility]Dots[facility] Work Phone: [phone] 16:05-0400Body orwyll02.19 kgVladimir Lagan Technologieshills & dales general hospitalOneFineMealAleman LE[facility] Work Phone: [phone] 16:05-0400BP Fvkwlruzo08 mm[Hg]Vladimir Lagan TechnologiesKnickerbocker Hospital [facility] Work Phone: [phone] 16:05-0400BP Njmrmkss733 mm[Hg]Vladimir Lagan TechnologiesKnickerbocker Hospital [facility] Work Phone: [phone] 16:05-0400BSA (Body Surface Area)1.87 m2 Vladimir Lagan Technologieshills & dales general hospitalGlobeTrotr.comnovant health rehabilitation hospital [facility] Work Phone: [phone] 16:05-7988Uwwapp031.94 cmRobert Lagan TechnologiesBath [facility] Medical Center [facility] Work Phone: [phone] 16:05-0400Pulse (Heart Rate)76 /minVladimir Lagan TechnologiesHealthSouth Medical CenterMotorwayBuddy [facility] Work Phone: [phone] 16:08-0500BMI (Body Mass Index)35.01 kg/m2 Vladimir Lagan Technologieshills & dales general hospitalGlobeTrotr.comnovant health rehabilitation hospital [facility] Work Phone: [phone] 16:08-0500Body Ypxrbipzkhr82.7 [degF]Vladimir Lagan Technologieshills & dales general hospitalGlobeTrotr.commassena memorial hospitalMotorwayBuddy [facility] Work Phone: [phone] 16:08-0500Body .06 kgVladimir Lagan Technologieshills & dales general hospitalOneFineMealAlemanFloor64 [facility] Work Phone: [phone] 16:08-0500BP Sulcfeqcg07 mm[Hg]enModusmassena memorial hospitalMotorwayBuddy [facility] Work Phone: [phone] 16:08-0500BP Pojaazga790 mm[Hg]enModusmassena memorial hospitalMotorwayBuddy [facility] Work Phone: [phone] 16:08-0500BSA (Body Surface Area)1.9 m2 Vladimir YumDotsGray [employer]es [employer] 38-454207-98315819-35-8141 16:084992Pmxrkh145.94 SujeyJackPot [employer] 18-862705-90118793-91-9259 16:080500Pulse (Heart Rate)72 /minBroadview Networks 31-103300-06460706-73-3473 18:22-0400BMI (Body Mass Index)34.39 kg/m2 [employer] 21-948107-28645709-18-1163 18:22-0400Body Voozcgvxmbo61.9 [degF][employer] 01-747813-33786727-07-2057 18:22-0400Body cylhgj73.56 kgRoblisa Daegis 80-642542-29754779-24-9263 18:22-0400BP Ktbhlpndl31 mm[Hg][employer] 63-097638-01954988-57-1969 18:22-0400BP Bymkiwll528 mm[Hg][employer] 09-176378-39966872-94-3378 18:22-0400BSA (Body Surface Area)1.88 m2 [employer] 81-891485-78866742-51-7801 18:220400BSA (Body Surface Area)1.89 m2 [employer] 69-886990-48684811-18-8366 18:229561Ygcmws515.94 Dave Daegis 93-403550-79506229-59-1117 18:22-0400Pulse (Heart Rate)80 /minBroadview Networks 64-582615-08052816-86-9872 17:44-0500BMI (Body Mass Index)32.94 kg/m2 [employer] 00-230503-31512432-92-3806 17:44-0500Body Pepytegoslv61.2 [degF][employer] 07-996496-32099897-24-2392 17:44-0500Body oiflrb36.07 kgRobilsa Daegis 33-465688-23195972-48-7820 17:44-0500BP Khpsdpyyp30 mm[Hg][employer] 83-399290-61657043-04-7125 17:44-0500BP Lbuplvhf263 mm[Hg][employer] 24-171373-56315095-80-4347 17:44-0500BSA (Body Surface Area)1.84 m2 [employer] 77-764895-12271788-41-8360 17:44-7053Nehzhm889.94 cmRobert Daegis 09-253994-18952663-20-7370 17:44-0500Pulse (Heart Rate)80 /minVladimir [employer] 50-032794-00111812-09-5071 17:15-0400BMI (Body Mass Index)32.31 kg/m2 [employer] 50-642564-29040129-51-5187 17:15-0400Body Meaeyumaihx02.5 [degF][employer] 25-130382-98952430-81-1769 17:15-0400Body efkfqz26.57 kgVladimir Daegis 09-11-2018 17:15-0400BP Fjohldrih80 mm[Hg][employer] 08-620660-48122451-31-1352 17:15-0400BP Umtdnslz933 mm[Hg][employer] 09-11-2018 17:15-0400BSA (Body Surface Area)1.83 m2 [employer] 09-11-2018 17:151270Oonewe799.94 [employer] 24-918874-34854285-53-9319 17:150400Pulse (Heart Rate)76 /minRobRyMed Technologies 55-374808-71016698-95-4447 17:14-0500BMI (Body Mass Index)32.31 kg/m2 [employer] 26-660423-53077587-39-7578 17:14-0500Body Bkyytjszhtp41.2 [degF][employer] 26-981585-22046723-40-3441 17:14-0500Body wjzyap55.57 kgApplication Developments plc 07-573871-29788989-76-0761 17:14-0500BP Xzmxwswgb39 mm[Hg][employer] 45-797511-53689372-47-6706 17:14-0500BP Pegdiluy672 mm[Hg][employer] 52-718503-21766387-58-6324 17:14-0500BSA (Body Surface Area)1.83 m2 [employer] 58-143054-49844690-59-2375 17:147050Dfvmdw897.94 [employer] 51-525262-04685607-12-9087 17:14-0500Pulse (Heart Rate)68 /minBroadview Networks 15-667840-30533405-39-9611 18:39-0400BMI (Body Mass Index)34.11 kg/m2 [employer] 20-928203-41132244-57-9679 18:39-0400Body Pgzeyxwxlmx26.1 [degF][employer] 74-478635-59481660-92-8598 18:39-0400Body xykyie61.56 kgRoblisa Daegis Work Phone: [phone] 18:39-0400BP Ulxinhdrs86 mm[Hg][employer] 55-013495-78702859-25-9276 18:39-0400BP Jewpxgms492 mm[Hg][employer] 08-745441-87749619-30-8108 18:39-0400BSA (Body Surface Area)1.89 m2 [employer] 04-631451-99481505-14-6562 18:39-9387Vvwoyo100.57 [employer] Work Phone: [phone] 18:39-0400Pulse (Heart Rate)88 /minGuilhermeRyMed Technologies 31-156969-08829686-77-5238 18:05-0500BMI (Body Mass Index)34.48 kg/m2 [employer] 87-671126-58343171-05-7176 18:05-0500Body Chcaxaufhbq66.4 [degF][employer] 75-158044-80832901-13-9786 18:05-0500Body uzvmyy39.46 kgGuilhermeYUPPTV 19-986515-96995092-59-9828 18:05-0500BP Kwnsuvgoy24 mm[Hg][employer] 52-192844-19025381-74-1558 18:05-0500BP Nkchdjwk979 mm[Hg][employer] 12-21-2016 18:05-0500BSA (Body Surface Area)1.9 m2 [employer] 36-508746-69077587-14-3948 18:05-1088Kfgljl759.57 [employer] 12-21-2016 18:05-0500Pulse (Heart Rate)92 /minVladimir [employer] 10-269746-75725263-32-8792 18:22-0400BMI (Body Mass Index)33.45 kg/m2 Vladimir [employer] 76-162129-81237125-34-5128 18:0400Body Vijdgbjltsn01 [degF]Vladimir [employer] 75-553730-11028793-14-8106 18:040Body yhwced14.97 kgVladimir Daegis 71-130307-10322531-36-2047 18:220400BP Wialpubfi16 mm[Hg][employer] 63-451519-89216386-19-0387 18:220400BP Gdcvagwi285 mm[Hg][employer] 93-847852-43248423-43-3869 18:BSA (Body Surface Area)1.87 m2 Vladimir [employer] 82-118213-95379885-35-9999 18:0262Arveba029.57 cmRobert Daegis 41-690849-56543270-77-7153 18:0400Pulse (Heart Rate)76 /minVladimir [employer] 64-403572-89325694-21-4502 18:35-0400BMI (Body Mass Index)33.93 kg/m2 [employer] 55-470974-46428735-72-7461 18:35-0400Body Pxshdueurzx60.3 [degF][employer] 70-430598-12747048-57-7372 18:35-0400Body .46 kgVladimir Daegis 70-953193-94954533-22-8335 18:35-0400BP Hdquoxyos01 mm[Hg][employer] Work Phone: [phone] 18:35-0400BP Igqocdwa147 mm[Hg][employer] Work Phone: [phone] 18:350400BSA (Body Surface Area)1.91 m2 [employer] Work Phone: [phone] 18:351141Qwlews113.84 [facility] HospitalJack[facility] Work Phone: [phone] 18:35-0400Pulse (Heart Rate)88 /minBroad[employer] Work Phone: [phone] 18:26-0500BMI (Body Mass Index)37.61 kg/m2 [employer] Work Phone: [phone] 18:26-0500Body Lqzpixrlelb75.5 [degF][employer] Work Phone: [phone] 18:26-0500Body avbaap68.53 kgRobYUPPTV Work Phone: [phone] 18:26-0500BP Xkxxaawim16 mm[Hg][employer] Work Phone: [phone] 18:26-0500BP Guikpqmy193 mm[Hg][employer] Work Phone: [phone] 18:26-0500BSA (Body Surface Area)2.01 m2 [employer] Work Phone: [phone] 18:26-6114Xrkasb731.84 [facility] HospitalJack[facility] Work Phone: [phone] 18:26-0500Pulse (Heart Rate)66 /minBroadview Networks Work Phone: [phone] 16:34-0500BMI (Body Mass Index)34.02 kg/m2 Vladimir YumDotsmassena memorial hospitalOraHealth Work Phone: [phone] 16:34-0500Body Qoijavbjkhc82.6 [degF]Vladimir Y[facility]Dotsnov[facility] [employer] Work Phone: [phone] 16:34-0500Body yalkrt63.69 kgVladimir DolosysncGrupanya Work Phone: [phone] 16:34-0500BP Bkryxbpbb36 mm[Hg]Vladimir YumDotsmassena memorial hospitalOra[facility] Work Phone: [phone] 16:34-0500BP Ypncfhdv867 mm[Hg]enModusmassena memorial hospitalOraHealth Work Phone: ([phone]) 16:34-0500BSA (Body Surface Area)1.91 m2 Vladimir YumDotsmassena memorial hospitalMotorwayBuddy [facility] Work Phone: ([phone]) 16:34-5601Qxhepn664.84 cmRobert Lagan Technologieshills & dales general hospitalOneFineMealAlemanGrupanya Work Phone: ([phone] 16:34-0500Pulse (Heart Rate)76 /minRoblisa YumDotsmassena memorial hospitalO[facility] Work Phone: [phone] 18:33-0400BMI (Body Mass Index)32.4 kg/m2 Vladimir YumDotsmass[facility] memorial hospitalO[facility] Work Phone: [phone] 18:33-0400Body Yqiteljerso94.6 [degF]enModusmassena memorial hospitalOraHealth Work Phone: [phone] 18:33-0400Body .07 kgVladimir DolosysncGrupanya Work Phone: [phone] 18:33-0400BP Upeuspuug33 mm[Hg]enModusmassena memorial hospitalOraHealth 24-222486-42854438-75-7364 18:33-0400BP Caprimgo764 mm[Hg]Vladimir [employer] 07-22-2013 18:330BSA (Body Surface Area)1.85 m2 Vladimir [employer] 07-22-2013 18:335178Rikmkv128.21 cmRobert [employer] Aleman [employer] 07-22-2013 18:33-0400Pulse (Heart Rate)76 /minRobert [employer] Encounters Encounter DateEncounter TypeCare ProviderFacilityStart: 04-01-2025 End: 61-04-6923eqapcromztXQR [facility] ClydeStart: 04-01-2025 End: 60-04-3561Nedqzxc encounter procedureLaterrell Brown VARNISH MAKER HELPER-[facility] Work Phone: Start: 03-29-2025 End: 45-78-4143Csmtyo outpatient visit 15 minutesGeri Vergara MD Work Phone: [facility] SpineComment on above:Cervical spondylosis with myelopathy (Primary Dx)Start: 03-29-2025 End: 14-20-2921bzzifjyompTADAHFQ A. MOOREFacility:METROHealthStart: 03-29-2025 End: 07-65-3860Otmqfoujjs hospital visit by Alicia Op Xray 1[facility] RadiologyComment on above:Cervical spondylosis with myelopathyStart: 03-21-2025 End: 24-60-0839ubijojmywaEQIU JUSTIN AKERSWyanjane [facility] Hospitaltart: 03-21-2025 End: 31-41-1972Molumiohdi hospital visit by Miko Alvarenga MD Work Phone: W ORStart: 02-27-2025 End: 96-34-4165ukfstcexsqEVMK JUSTIN FLLUCASEast [facility] HospitalStart: 02-14-2025 End: 46-72-6249cagduqilksNENAKDN W PARSELLMerRockville General Hospitaltart: 02-14-2025 End: 84-32-8832Dlwioirqbb hospital visit by physicianSt. [facility] 2M[facility] LABComment on above:Mixed incontinence; Suprapubic painStart: 02-13-2025 End: 19-18-8700jlpcwtycplILVVBOXAscension St[facility] HospitalStart: 02-13-2025 End: 23-07-7623Swkszydqhy hospital visit by physicianSt[facility] 1[facility] Sleep CenterComment on above:Snoring; Type 2 diabetes mellitus without complication, without long-term current use of insulin (HCC) / Metformin ER; Sleep apnea, unspecified typeStart: 02-06-2025 End: 14-09-0207wdyxrwwmscFTMPLUVAscension St. [facility] Hospital HospitalStart: 02-06-2025 End: 00-16-7307Gmoxtakbgq hospital visit by Kristina Eller MD Work Phone: [facility] LABComment on above:Nocturia; Mixed incontinenceStart: 01-03-2025 End: 83-35-6263Mcujhc outpatient visit 15 minutesJr. Keith Gabriel DO Work Phone: noms [facility] OrthopaedicsComment on above:Left hip pain; Acute pain of left knee; Acute pain of right kneeStart: 01-03-2025 End: 83-51-0070rrrextlrdjBN., KEITH GABRIELNot AvailableStart: 01-03-2025 End: 35-53-7977Aatsyd flowsheetJr. Keith Gabriel DO Work Phone: [facility]oms [facility] OrthopaedicsStart: 01-03-2025 End: 93-66-5711Uybopq flowsheetJr. Keith Gabriel DO Work Phone: noMS [facility] OrthopaedicsStart: 10-11-2024 End: 09-20-5614Kwwrlorus Tano Holland MD Work Phone: [facility]tg[facility] Pancreatic & Endocrine SurgeryStart: 38-45-1940sppabznmyuAmmLmbzcv [facility] Start: 09-29-2024 End: 69-91-7040Kslwdggcgp and management of inpatientLisbet Brush MD Work Phone: [facility] GEN 9 ICUComment on above: Gastrointestinal hemorrhage with melena (Primary Dx); Gastrointestinal hemorrhage, unspecified gastrointestinal hemorrhage type; Acute blood loss anemia; Iron deficiency anemia, unspecified iron deficiency anemia type; Right upper quadrant abdominal painStart: 09-28-2024 End: 00-87-5950Volxmysldg and management of inpatientMark Pb Eller MD Work Phone: mtHZ ICUStart: 09-20-2024 End: 63-20-9619hpmisyascqUXUI AKERSFacility:[facility]ENTERtart: 09-20-2024 End: 07-36-9885Aaknkjfydb hospital visit by Torito Whipple MD Work Phone: [facility] SystemComment on above:Liver fibrosisStart: 08-23-2024 End: 06-56-0550ocouchkqdwSxq Paul Babich MDFacility:[facility] Start: 30-99-6357yfjciforxeSSAB AKERSFacility:[facility]tart: 06-20-2024 End: 66-26-8962Asqnma flowsheetJr. Keith Gabriel DO Work Phone: noms FB ORTHOPAEDICSStart: 06-20-2024 End: 36-77-6881Jhxihd flowsheetJr. Keith Gabriel DO Work Phone: noms FB ORTHOPAEDICSStart: 06-20-2024 End: 71-41-4188Jdemxp outpatient visit 15 minutesJr. Keith Gabriel DO Work Phone: noms FB ORTHOPAEDICSComment on above:Left hip pain (Primary Dx); Status post left hip replacementStart: 06-20-2024 End: 70-98-1296hmsaqcnsjrMA., KEITH GABRIELNot AvailableStart: 04-13-2024 End: 72-14-7078Epgatr outpatient visit 15 minutesGeri Vergara MD Work Phone: [facility] Orthopedic SpineComment on above:Cervical spondylosis with myelopathy (Primary Dx)Start: 04-13-2024 End: 73-67-3729klkrxfoztyOVAEFTT FrankSpenser JAIFacility:[facility]ROHealthStart: 04-13-2024 End: 98-53-6765Ujrsqzdirt hospital visit by physicianAlexx Doyle 4[facility] RadiologyComment on above:Cervical spondylosis with myelopathyStart: 03-28-2024 End: 68-61-1009zyrqjsminwBEMLJLE [facility] HospitalStart: 03-28-2024 End: 27-05-9660Gqzqvgrqxk hospital visit by physicianCooper Eller MD Work Phone: mthz LaboratoryComment on above:NocturiaStart: 03-20-2024 End: 35-67-8150Qjliyx flowsheetJr. Keith Gabriel DO Work Phone: NOFS FB ORTHOPAEDICSStart: 03-20-2024 End: 69-10-2670Ivpkrj flowsheetJr. Keith Gabriel DO Work Phone: noms FB ORTHOPAEDICSStart: 03-20-2024 End: 92-84-9187Xrfuju follow up visit related to original pxJr. Keith Gabriel DO Work Phone: NOXT FB ORTHOPAEDICSComment on above:Status post left hip replacement (Primary Dx)Start: 03-20-2024 End: 04-92-2703vrwynutderJN., KEITH GABRIELNot AvailableStart: 02-22-2024 End: 65-76-4428Ygxnlaoab encounterJr. Keith Gabriel DO Work Phone: [facility] SWS ORTHOComment on above:RestrictionsStart: 02-02-2024 End: 40-16-8206Yljfwb flowsheetJr. Keith Gabriel DO Work Phone: [facility] SWS ORTHOStart: 02-02-2024 End: 94-79-2417Jfzbjj flowsheetJr. Keith Gabriel DO Work Phone: [facility] SWS ORTHOStart: 02-02-2024 End: 66-05-7216Olnisj follow up visit related to original pxJr. Keith Gabriel DO Work Phone: noms SWS ORTHOComment on above:Status post left hip replacement (Primary Dx); Acute hip pain, leftStart: 02-02-2024 End: 65-07-2592hjfydqmmsyHS., KEITH GABRIELNot AvailableStart: 01-17-2024 End: 84-96-5804Wfqglgvrw encounterJr. Keith Gabriel DO Work Phone: noms ORTHOPAEDICSComment on above:Eloquis clarificationStart: 12-23-2023 End: 42-67-7705Nuclxokxjf and management of inpatientGEORJENNIFER GABRIEL [facility]: 17-68-3632qluxvupcteKQKI AKERS Facility:[facility]tart: 11-29-2023 End: 34-08-5451Noceov outpatient visit 40 minutesLakisha Cordoba MD Work Phone: [facility] [place] ArlingtonComment on above:Primary biliary cholangitis (Primary Dx); Abnormal LFTs; Splenomegaly; Other abnormal tumor markersStart: 36-47-7496pqkyrbjworQAJF AKERS Facility:[facility]tart: 11-24-2023 End: 94-29-8003eyysdihdxkOVGK J AKERSFacility:[facility]ertart: 11-09-2023 ambulatoryAndrae Patino MDFacility:[facility]tart: 10-19-2023 End: 28-21-9188mqwckiqmflXjvJosselyn Patino MDFacility:[facility]Start: 09-22-2023 End: 03-16-3632spmpjarbvnDriJosselyn Patino MDFacility:[facility] Start: 09-16-2023 End: 29-21-0830Cmohts outpatient visit 15 minutesGeri Vergara MD Work Phone: [facility]opedic SpineComment on above:Cervical spondylosis with myelopathy (Primary Dx); Myelopathy (HCC)Start: 09-16-2023 End: 28-41-5979Egpqvqujvs hospital visit by [facility] Op Xray 4[facility] RadiologyComment on above:Cervical spondylosis with myelopathyStart: 06-17-2023 End: 18-38-2457Ktprihd encounter procedureGeri Vergara MD Work Phone: [facility] Orthopedic SpineComment on above:Cervical spondylosis with myelopathy (Primary Dx)Start: 06-17-2023 End: 63-03-0048Jorhpgjagt hospital visit by [facility] Op Xray 1[facility] RadiologyComment on above:Cervical spondylosis with myelopathyStart: 05-04-2023 Telephone encounterGeri Vergara MD Work Phone: [facility] Orthopedic SpineComment on above:Health InformationStart: 04-22-2023 End: 96-72-5741Azbjiic encounter procedureOrtho Spine RnMetroHealth Orthopedic SpineComment on above:Hx of cervical spine surgery (Primary Dx)Start: 04-09-2023 Telephone encounterGeri Vergara MD Work Phone: [facility] Orthopedic SpineComment on above:Health InformationStart: 03-31-2023 End: 54-03-5339Wnhihvxffo hospital visit by Arron Vergara MD Work Phone: [facility] RadiologyComment on above:ArrivedStart: 03-23-2023 End: 58-16-0549Cqofzmm encounter procedureDee Mireles APRN-WET ROLLER Work Phone: [facility] Pre Surgical EvaluationComment on above: Preop testing (Primary Dx); 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); Other specified disorders of central nervous system; Body mass index (BMI) 30.0-30.9, adultPreop testing (Primary Dx); 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); Other specified disorders of central nervous system; Body mass index (BMI) 30.0-30.9, adult; Abnormal electrocardiogram (ECG) (EKG)Start: 03-23-2023 End: 60-10-6901Jkkdqqe encounter statusDee MUNOZ Work Phone: [facility] Work Phone: Start: 03-23-2023 End: 35-20-5096Ayldoi outpatient visit 25 minutesGeri Vergara MD Work Phone: [facility] Orthopedic SpineComment on above:Cervical spondylosis with myelopathy (Primary Dx)Start: 03-23-2023 End: 60-26-4754Gpionbcouj hospital visit by physicianMh Ip/Op Ct Scan Main 2(Edge)[facility] Radiology CTComment on above:Cervical spondylosis with myelopathyStart: 81-12-9680Etikyuaun to same day surgery centerGeri Vergara MD Work Phone: [facility] Main ORStart: 02-11-2023 End: 80-48-7525Ezvbzz outpatient visit 15 minutesGeri Vergara MD Work Phone: [facility] Orthopedic SpineComment on above:Cervical spondylosis with myelopathy (Primary Dx)Start: 84-30-3502Olmxkc Christina Vergara MD Work Phone: MetHealthStart: 12-24-2022 End: 47-44-9645Faweik outpatient visit 15 minutesGeri Vergara MD Work Phone: metQuitbitLake[facility] Orthopedic SpineComment on above:Cervical spondylosis with myelopathy (Primary Dx)Start: 11-10-2022 End: 04-66-2989ngqjpzkckqTswtejj A MooreFacility:FTMCStart: 11-10-2022 End: 48-02-2539Upkz [facility] Hospitalelvira Jerry [facility] Start: 10-29-2022 End: 61-62-3427Ondshj outpatient visit 15 minutesGeri Vergara MD Work Phone: met[facility] Orthopedic SpineComment on above:Cervical spondylosis with myelopathy (Primary Dx)Start: 75-42-8501Gvujfb Christina Vergara MD Work Phone: [facility] HospitalStart: 10-26-2022 End: 13-97-0093Pozseb Linda Vergara MD Work Phone: [facility] Orthopedic SpineComment on above: Myelopathy (HCC)Start: 10-16-2022 End: 04-05-4400mljrsfgbnvUyeuizt A MooreFacility:FTMCStart: 10-16-2022 End: 24-01-7558Nhnkurc encounter procedureGeri Vergara [facility] Start: 09-28-2022 End: 33-88-1321gtwwgwdaumEO COOPER ISBELLERSFacility:M0Oovdq: 09-24-2022 End: 30-21-6155Szotelqusb hospital visit by physicianSouthern [facility] RadiologyComment on above:Spinal stenosis of lumbar region, unspecified whether neurogenic claudication presentStart: 57-53-9900Uqeadw Linda Vergara MD Work Phone: [facility] Orthopedic SpineStart: 07-30-2022 End: 62-33-9956grvaoaozczEV KELLY S TIAN .Facility:Z3Iixwt: 07-07-2022 End: 17-62-6721jraudhpdteSQ KELLY S TIAN .Facility:R6Pgkea: 06-25-2022 End: 73-71-3844artfdftjhcZR KELLY S TIAN .Facility:U2Pxbrn: 06-16-2022 End: 76-39-1274ubkasxcdqoTawpik JuvencioFacility:FTMCStart: 06-16-2022 End: 84-69-8906Dwmkyhz encounter procedureAmanda Juvencio [facility] Start: 06-09-2022 End: 39-95-9020xydvqubsukNkyeunr A MooreFacility:FTMCStart: 06-09-2022 End: 27-05-6397Nfiehih encounter procedureGeri Vergara [facility] Start: 05-19-2022 End: 62-37-0999bbtpfdbobzXnsghxq A MooreFacility:FTMCStart: 05-19-2022 End: 12-14-0697Enipssg encounter procedureAnjumjonathan Marie Vergara [facility] Start: 05-07-2022 End: 99-87-9617iuwkxihanmRQ KELLY S TIAN .Facility:T5Hxxhw: 05-01-2022 End: 54-90-8452nnsuzqkgibKFRJ CALLEJAS .Facility:X2Ltxaf: 04-22-2022 End: 96-09-3213nycascvallQZ KELLY S TIAN .Facility:O3Fzrfd: 04-22-2022 End: 25-54-2282zggbwipfzvRO COOPER ELLERFacility:W5Jamol: 03-31-2022 End: 95-62-4449awgmbhifnwPE KELLY S TIAN .Facility:W4Izeqa: 03-24-2022 End: 68-87-4526ulnbqserhmLjkbx WestFacility:D9Igqyg: 03-18-2022 End: 77-30-0274swzddazcyeZN KELLY S TIAN .Facility:F5Ogzvc: 03-10-2022 End: 78-63-3645exkdhaorisDW COOPER ELLERFacility:F6Smogo: 03-03-2022 End: 45-33-1998youndxghlgLV KELLY S TIAN .Facility:W8Emlzg: 02-19-2022 End: 81-03-5897zkpdaftvnqTW KELLY S TIAN .Facility:E4Kneyp: 01-20-2022 End: 42-42-4305Lpcprnimyc hospital visit by Kristina Eller MD Work Phone: mthz LaboratoryComment on above:Urinary urgency; Frequency of micturitionStart: 12-25-2021 End: 75-18-8507lcfsykkipmHgbejo ZieberFacility:Q0Npmen: 11-19-2021 End: 83-77-1538qhkgmqrxsuMR KELLY S TIAN .Facility:H1Xliku: 11-18-2021 End: 04-68-0973Veqapyujnh hospital visit by Kristina Eller MD Work Phone: mthz LaboratoryComment on above:Urinary urgencyStart: 10-14-2021 End: 42-17-6640ampdugbfnsVM KELLY TIAN .Facility:E9Vlkdc: 10-09-2021 End: 68-94-1926rvvocggzztTX KELLY TIAN .Facility:X3Nzhdx: 08-05-2021 End: 41-87-5214Nostmawrny hospital visit by Miko Alvarenga MD Work Phone: mthz ORStart: 07-23-2021 End: 27-67-2437Vubrqhg encounter statusSandra Alvarenga MD Work Phone: mthz PRE ADMITStart: 07-23-2021 End: 81-09-6617Lfatuftwjp hospital visit by Miko Alvarenga MD Work Phone: mthz PRE ADMITComment on above:Preop testingStart: 93-45-0252Qhabin outpatient visit 15 minutesRobert [email or web address] Other bvma OfficeStart: 96-75-1766Lzcgul ServicesRobert [email or web address] Other bvma OfficeStart: 07-51-2734Wdqtpa outpatient visit 15 minutesRobert L [employer] Other bvma OfficeStart: 2019 End: 52-18-2483Adgcjbjnkh hospital visit by Kristina Patel Laboratory Comment on above:Mixed incontinenceStart: 08-04-0364Aulgsm outpatient visit 15 minutesRobert L Lagan TechnologiesacoLimitlesslane Other bvma OfficeStart: 02-24-2019 End: 66-60-4758Kgivgmlsfm hospital visit by Robbie Fairbanks [address] RadiologyComment on above:ArrivedRenal stonesStart: 01-06-2019 End: 69-66-8774Ijywzdayic hospital visit by Kristina Patel Laboratory Comment on above:Mixed incontinence; OAB (overactive bladder); Frequency of urination; Urgency of urinationStart: 26-26-0308Lzjbef outpatient visit 15 minutesRobert L Heacock Other BVMA OfficeStart: 03-17-4406Inkypl outpatient visit 15 minutesRobert L Heacock Other BVMA OfficeStart: 58-89-3880Fgtbpm outpatient visit 15 minutesRobert L Heacock Other BV[facility] OfficeStart: 17-32-0162Oanjfy outpatient visit 15 minutesRobert L Heacock Other [facility] OfficeStart: 29-46-3282MimlcgojtUbqayi L Heacock Other [facility] CenterStart: 34-16-2727Dxdzar outpatient visit 15 minutesRobert L Heacock Other BV[facility] OfficeStart: 75-85-7207Xntjul outpatient visit 15 minutesRobert L Heacock Other [facility] OfficeStart: 87-79-8427PwjzvyunrPlrvng L Heacock Other [facility] CenterStart: 82-95-4737Uiimlv outpatient visit 15 minutesRobert L Heacock Other [facility] OfficeStart: 24-02-4677Pdxznp outpatient visit 15 minutesRobert L Heacock Other [facility] OfficeStart: 06-97-0235Hxakao ServicesRobert L Heacock Other [facility] OfficeStart: 96-27-5303Grjnvy ServicesRobert L Heacock Other [facility] OfficeStart: 74-93-2462Wdabek ServicesRobert L Heacock Other [facility] Office Procedures DateProcedureProcedure DetailPerforming ClinicianStart: 59-38-1831Srifg chest X-rayTammy Mckeon APRN Work Phone: Start: 35-52-6634Naucx spine cervical 2 or 3 views Geri Vergara MD Work Phone: Start: 34-99-2643Vv abdomen & pelvis w/o contrst 1/> body reBethany W Parsell VARNISH MAKER HELPER - WET ROLLER Work Phone: start: 72-49-5422Hexsk dip stick/tablet reagent auto microscopyBethany W Parsell VARNISH MAKER HELPER - WET ROLLER Work Phone: start: 19-44-5799Qygfb of urea nitrogen quantitative Prashant Mello Parsell VARNISH MAKER HELPER - WET ROLLER Work Phone: start: 97-80-3772Aalqh dip stick/tablet reagent auto microscopyBethany W Parsell VARNISH MAKER HELPER - WET ROLLER Work Phone: start: 01-03-2025 End: 71-14-5742Gmjzf hip unilateral with pelvis 2-3 viewsJr. Keith Maurice Stepanic DO Work Phone: Start: 58-01-6943OWNAKBZ Emely Melendez MD Work Phone: Start: 14-18-9585RSVRAGR Emely Melendez MD Work Phone: Start: 30-86-4740Xpayz metabolic panel calcium total Juice Melendez MD Work Phone: Start: 50-06-9728IGQUURI Emely Melendez MD Work Phone: Start: 10-02-2024 End: 87-64-8268Sujevrfmrymcdtmbeafvrkhoij transoral diagnosticSara Gavi Noland DO Work Phone: Start: 50-24-5771QczpzvmdtskixcvtvqwzmschvkEzuk F Ludin DO Work Phone: Start: 12-16-4532MHGCZIAYF Allen Suggs MD Work Phone: Start: 85-84-9214Hrtcp of magnesiumTj Amin VARNISH MAKER HELPER-WET ROLLER Work Phone: Start: 13-35-9203Dwzlwonovcueo metabolic panelLauren N Pineda BARRON Work Phone: Start: 37-97-5776Iuqxh count hematocritLauren N Sung PA-C Work Phone: Start: 95-51-3124Jeeim count hematocritLauren N Sung PA-C Work Phone: Start: 42-26-7625Mxksftdqdbxvv metabolic panelLauren N Sung PA-C Work Phone: Start: 72-52-8798Owvkv count hematocritLauren N Sung PA-C Work Phone: Start: 84-71-9001Iknru count hematocritLauren N Sung PA-C Work Phone: Start: 92-84-6023Xmdsvkpumsvee metabolic panelLauren N Sung PA-C Work Phone: Start: 57-45-3961Nzscbkr ionizedTj Randolphnner VARNISH MAKER HELPER-WET ROLLER Work Phone: Start: 99-80-2432Bgmxh depression screening assessment Anjelica Holland MD Work Phone: start: 98-42-7423Nznvwbhdiowyp (pct)Tj Mustafa Eloisa VARNISH MAKER HELPER-WET ROLLER Work Phone: Start: 80-62-7794KBXOUEGK ABORRayna Brush MD Work Phone: Start: 09-29-2024 End: 76-38-4035Xspvbhvx screenSandeeelda Melendez MD Work Phone: Comment on above:Performed By: #### TSC #### [facility] ([facility]) [address] [place] [address] VIRStart: 97-09-1395Ygjmh typing serologic Bree Randolphnner VARNISH MAKER HELPER-WET ROLLER Work Phone: Start: 56-67-8098Vjvpidjvvnnbc metabolic panelTj Randolphnner VARNISH MAKER HELPER-WET ROLLER Work Phone: Start: 50-55-8686UCANTEO GLUCOSENickarla Brush MD Work Phone: Start: 57-59-0356Jwbfrjfrb syst imag inc gb w/pharma intervenjSmita Washington [facility] Work Phone: Start: 09-29-2024 End: 88-33-2694Odyaykygyza of packed red blood cellsTeresa SchultzKindred Hospital Aurora - [facility] Work Phone: Start: 59-26-9256Orykf count hemoglobinMark Pb Eller MD Work Phone: Start: 63-55-6135Hiozl occult peroxidase actv qual feces 1 deterMeganikunj Washington [facility] Work Phone: Start: 09-29-2024 End: 83-25-1675Iewazwttkby of packed red blood cellsSmita Washington [facility] Work Phone: Start: 09-29-2024 End: 92-21-3601Ssgcr of ammoniaSmita Oscar Felix [facility] Work Phone: Start: 09-29-2024 End: 86-10-0275Shw routine ecg w/least 12 lds w/i&rShirpolo Marie [facility] Work Phone: Start: 76-82-7542CYSIUXQ, WHOLE BLOODMark Pb Eller MD Work Phone: Start: 14-40-4310Zorhmiubiz microscopic onlyTeresa Marie [facility] Work Phone: Start: 91-09-4760Xdxfv dip stick/tablet rgnt auto w/o microscopyTeresa Marie [facility] Work Phone: Start: 63-98-6430Ysubw typing serologic aboTeresa Marie [facility] Work Phone: Start: 57-92-1188Gizvlsz bacterial blood aerobic w/id isolatesTeresa Marie [facility] Work Phone: Start: 30-33-7932DIPVVMP, SEPSISShirley A Les LechugaSonoma Speciality HospitalN - [facility] Work Phone: Start: 69-93-9388Zc thorax w/contrast materialShirpolo SaldanaWomen & Infants Hospital of Rhode IslandN - [facility] Work Phone: Start: 09-28-2024 End: 87-13-5272Llv routine ecg w/least 12 lds i&r onlyShirley A [facility]N - [facility] Work Phone: Start: 18-88-6065Nfqjz of lipaseShirley Frank [facility]N - [facility] Work Phone: Start: 06-61-2611LAIFQIH, BLOOD 1Shirley A [facility]N - [facility] Work Phone: Start: 90-20-4593WJGXQKU, SEPSISShirley A LidaBrook Lane Psychiatric CenterN - [facility] Work Phone: Start: 35-30-6247Eaernbg measurement, Richardson Whipple MD Work Phone: Start: 73-76-9116Jjsav spine cervical 2 or 3 views Geri Vergara MD Work Phone: Start: 69-86-7024Dfxfz dip stick/tablet reagent auto microscopyBedarwin Riaz Alvares [facility] Work Phone: start: 59-62-6111Lgets hip unilateral with pelvis 2-3 viewsJr. Keith Gabriel DO Work Phone: Start: 23-75-8289Xliti spine cervical 2 or 3 views Geri Vergara MD Work Phone: Start: 60-75-0211Rjjts spine cervical 2 or 3 views Geri Vergara MD Work Phone: Start: 25-94-8469Zrrqgzrhpht up to 1 hour physician/qhp Ladonna Ridley MD Work Phone: Start: 03-23-2023 End: 78-77-3029Vlnbe typing serologic aboKiaisha Mireles VARNISH MAKER HELPER-WET ROLLER Work Phone: Start: 75-30-0662Ree routine ecg w/least 12 lds trcg only w/o i&rTo Be AssignedStart: 96-32-6479Ufxmx typing, ABO, Rho(D) and RBC antibody screeningDee Mireles VARNISH MAKER HELPER-WET ROLLER Work Phone: Start: 03-23-2023 End: 62-29-4942Aehnfclujfjigz time partial plasma/whole bloodKiaisha Mireles VARNISH MAKER HELPER-WET ROLLER Work Phone: Start: 73-78-1446Ht cervical spine w/o contrast materialGeri Vergara MD Work Phone: Start: 41-62-8223WR NEURO IMAGE IMPORTGeri Vergara MD Work Phone: Start: 95-93-1965YN NEURO IMAGE IMPORTGeri Vergara MD Work Phone: Start: 39-55-7061Zjrkx dip stick/tablet reagent auto microscopyKyle Parvin Frye PA-C Work Phone: Start: 76-61-2623GfhewvzrfqfTg. Stepanic DO Work Phone: Start: 46-13-9890Cimpb dip stick/tablet reagent auto microscopyKyle Parvin Frye PA-C Work Phone: Start: 38-64-0114Qqutnmddda stimulation of bladder Gerry Jerry start: 49-33-6038Esl routine ecg w/least 12 lds i&r onlyKyle Parvin Magdalenoie PA-C Work Phone: Start: 55-91-7810Qhira metabolic panel calcium total Jed Parvin Frye PA-C Work Phone: Start: 27-27-3742VHHQNSVG PLATELET FRACTIONKyle Parvin Frye PA-C Work Phone: Start: 70-47-2992Udiabbhl blood countRobert z Fannie Start: 58-03-0229Geirdzjonsxtd metabolic panelRobert z [facility] DistrictStart: 08-13-2020 ColonoscopyJr. Stepanic DO Work Phone: Start: 20-05-8361Bmdjqsmu blood countRobert z Fannie Start: 88-84-2627Drfktckuutbst metabolic panelRobert z Jeancarlospaul [facility] hospitalStart: 04-10-2020 Current Medications Verified MIPSRobert z Jeancarlospaul [facility] hospitalStart: 48-88-0012Fgv meds verified w/pt or reRobert acoStart: 35-89-4666Vcsssnof blood countRobert z [facility] DistrictStart: 25-18-2091Etlspwuldmgpc metabolic panelRobert z [facility] DistrictStart: 19-40-6526Ubxflvdk blood countRobert z Jeancarlospaul [facility] hospitalStart: 95-66-3052Nnjwref Medications Verified MIPSRobert z Jeancarlospaul [facility] hospitalStart: 01-45-7083Kon meds verified w/pt or reRobert [facility] DistrictStart: 68-49-6450Hlpw energy X-ray absorptiometryRobert z [facility] DistrictStart: 90-83-6291Qwdcvsaf blood countRobert z [facility] DistrictStart: 01-02-2020 Comprehensive metabolic panelRobert z Dr. [facility] Hospitalart: 83-93-4025Oxnxp dip stick/tablet reagent auto microscopyBethdarwin Riaz Alvares Work Phone: Start: 46-31-6451Lhiwhore blood countRobert z Fannie Start: 31-53-8118Seloerskkpkpw metabolic panelRobert z Jeancarlospaul [facility] hospitalStart: 07-11-2019 Complete blood countRobert z FannieStart: 56-60-6975Iepmjpv Medications Verified MIPSRobert z Jeancarlospaul [facility] hospitalStart: 07-94-6293Wut meds verified w/pt or reRobert acoStart: 11-17-4176Cfpywisz blood countRobert z AshwinStart: 05-31-2019 Comprehensive metabolic panelRobert bart [facility] DistrictStart: 87-17-3723Spmuv count complete auto&auto difrntl wbcRobert [facility] DistrictStart: 13-90-5755Czdpfqet blood countRobert bart [facility] DistrictStart: 25-77-4006Wsiqiwfwreoyo metabolic panelRobert [facility] DistrictStart: 90-48-2295Dceqeqhurq exam abdomen 1 viewBethdarwin Mello [employer] Work Phone: Start: 88-89-7285Uehts dip stick/tablet reagent auto microscopyBethdarwin Mello [employer] Work Phone: Start: 23-68-9251Grodrpe Medications Verified MIPS Vladimir [facility] DistrictStart: 62-58-1328Lkv meds verified w/pt or reRobert [facility] DistrictStart: 58-07-4447Fdfjr count complete auto&auto difrntl wbcRobert [facility] DistrictStart: 98-46-5854Kpcldnnl blood countRobert bart [facility] DistrictStart: 01-47-6391Eemusjfaoyztj metabolic panelRobert [facility] DistrictStart: 79-99-9323Hcfvi count complete auto&auto difrntl wbcRobert [facility] DistrictStart: 93-42-8324Qfesfkff blood countRobert bart Arshadpaul [facility] Start: 38-56-3880Rtwfxoyzqdlow metabolic panelRobert [facility] DistrictStart: 08-23-2018 Blood count complete auto&auto difrntl wbcRoblisa [facility] DistrictStart: 08-23-2018 Complete blood countRobert bart Arshadhills & dales general hospitalkatherineStart: 24-82-8463Zkrmydkblkdxg metabolic panelRobert [facility] DistrictStart: 60-27-0935Cjpze count complete auto&auto difrntl wbc Vldaimir ArshadxiomaraStart: 21-84-3283Vuhczxyf blood countRobert bart [facility] DistrictStart: 19-71-9868Hoymzoo Medications Verified MIPSRoblisa Arshadpaul [facility] hospitalStart: 16-02-0281Jzx meds verified w/pt or reRobert [facility] DistrictStart: 04-12-9873Bxhax count complete auto&auto difrntl wbcRoblisa [facility] DistrictStart: 72-36-2653Gtwbxwzy blood countRobert bart [facility] DistrictStart: 10-33-8527Jaasykojcjmsi metabolic panelRobert [facility] DistrictStart: 47-42-7398Qhhwvqe Medications Verified MIPSRoblisa [facility] DistrictStart: 03-22-5069Hmiyg count complete auto&auto difrntl wbcRobert [facility] DistrictStart: 49-59-7782Xjuvyltn blood countRobert bart [facility] DistrictStart: 26-28-5260Wmxbxdpmwxdjv metabolic panelRobert [facility] DistrictStart: 80-85-4924Ygaii count complete auto&auto difrntl wbcRobert [facility] Start: 93-87-7906Otqarlep blood countRobert bart [facility] DistrictStart: 01-24-2018 Comprehensive metabolic panelRobert [facility] [facility] DistrictStart: 07-90-4418Fjzaqgk Medications Verified MIPSRobert [facility] DistrictStart: 26-02-9038Zghdm count complete auto&auto difrntl wbcRobert [facility] DistrictStart: 31-25-8745Nvpmllsg blood countRobert bart [facility] Start: 56-96-1322Guitulpcehiyz metabolic panelRobert [facility] DistrictStart: 05-13-2017 Blood count complete auto&auto difrntl wbcRobert [facility] DistrictStart: 05-13-2017 Complete blood countRobert bart [facility] DistrictStart: 03-91-7433Lyjywxlkqygrx metabolic panelRobert St. [facility] DistrictStart: 42-13-9825YyfwakxagcyRdwcwg Colette FOSTER Work Phone: Start: 41-89-4816Vwndc count complete auto&auto difrntl wbcRobert St. [facility] DistrictStart: 47-99-9880Zvunc ca scrn not hi rsk indRobert Hepaul oliver memorial hospitalStart: 11-12-3217Frehgixk blood countRobert bart [facility] DistrictStart: 11-11-[address] [facility] DistrictStart: 31-92-1259Rcrlgmljd colonoscopyRobert bart [facility] DistrictStart: 62-96-6228Sdrvj count complete auto&auto difrntl wbcRobert St. [facility] DistrictStart: 41-61-6523Divkjozp blood countRobert bart [facility] Start: 87-84-6318Ugafpstjqsqll metabolic panelRobert [facility]. [facility] DistrictStart: 05-13-2016 Colon ca scrn not hi rsk indRobert [facility]aul [facility] hospitalStart: 16-77-5011Dohhlamvx colonoscopy Vladimir [facility] CenterStart: 18-26-2483Svtbl count complete auto&auto difrntl wbc Vladimir Ar[facility]adpaul [facility]liver memorial hospitalStart: 04-52-4479Dvhjtonf blood countRobert bart [facility] DistrictStart: 10-58-3931Jduwl count complete auto&auto difrntl wbcRobert [facility] DistrictStart: 31-10-7431Rwjpfddk blood countRobert bart [facility] DistrictStart: 73-51-5785Baywgorlfahyu metabolic panelRobert [facility]. [facility] DistrictStart: 82-60-4647Cllqp ca scrn not hi rsk indRobert St. [facility] DistrictStart: 02-20-2076Smjmzouxb colonoscopyRobert bart [facility] DistrictStart: 05-30-2015 Blood count complete auto&auto difrntl wbcRobert Dr. [facility] Hospitalart: 05-30-2015 Complete blood countRobert bart Dr. [facility] Hospitalart: 38-20-7278Ckqvowmikvhpt metabolic panelRobert [facility]. [facility] DistrictStart: 07-24-3286Emvkn count complete auto&auto difrntl wbc Vladimir [facility] Hospitalart: 96-67-1056Rrwyecrj blood countRobert bart Dr. [facility] Hospitalart: 94-87-7409Mdctmhnfmtyex metabolic panelRobSelect Specialty HospitalComplete repair of rotator cuffGeri Vergara Comment on above:[address] GabrielUvpoagoe4949 [facility] Dr GabrielH/O: hysterectomyGeri Vergara Comment on above:[address] [facility] [address] CervantesHistory of right total knee replacementGeri Vergara Comment on above:[address] [facility] [address] Gabriel Laboratory test result abnormalOther abnormal tumor markersLakisha Cordoba MD Work Phone: Plan of Treatment DateCare ActivityDetailAuthorStart: 95-94-6555Uuwxkdwid for malignant neoplasm of colonNOMS HealthcareStart: 48-98-9826Lfoeyuoakdc [Mass/volume] in Serum or PlasmaCholesterolMetroHealthStart: 12-24-2026 End: 33-68-9212Plibcru encounter jgaubnsvm08/03/2027 2:15 PM EDT Office Visit [facility] Part of [address] [facility] [place] [address] Destinee Coughlin, WM -[facility] [address] [facility] [address] [facility] [place] [address] yearly--last 12/19/2024--[facility]are[facility]YNECOLOG[facility] Part of [facility] For Special CareComment on above:yearly--last 12/19/2024--MedicareStart: 77-64-6063Kqdnm cancer screen colonoscopyColon cancer screen colonoscopyBellevue Hospital, KYStart: 28-67-8653Fbglbvhvq for malignant neoplasm of colonDunlap Memorial HospitalStart: 95-37-1032Ulhgiyff screeningDiabetic retinal examBon [facility] HospitalStart: 92-68-2466MKQ test (Diabetes, CKD 3-4, OR last GFR 15-59)GFR test (Diabetes, CKD 3-4, OR last GFR 15-59)Bon [facility]art: 43-70-5391Qkpyhzlpw for malignant neoplasm of breastBreast cancer screenBon [facility] Generalart: 35-13-8705Pirnahoyce measurementBasic Metabolic PanelMetroHealthStart: 01-02-2026 End: 26-60-4366Oewnpqu encounter agzebpysw90/12/2026 2:00 PM EDT Office Visit [facility] [address] [place] [phone] Jr. Keith Gabriel, DO [address] [place] [address] NOMSony [facility]ario OrthopaedicsStart: 69-15-8023Idfooizafe ScreenDepression ScreenBon [facility] HospitalStart: 49-63-6219Ctgsf BMI ScreeningAdult BMI ScreeningProBullock County Hospital Health SystemStart: 62-10-3698Fpgbnnm stimulating hormone measurementTSHMetroHealthStart: 10-02-2025 Tobacco ScreeningTobacco ScreeningProThe [facility] SystemStart: 09-30-2025 Depression ScreeningDepression ScreeningProThe [facility] SystemStart: 09-29-2025 GFR test (Diabetes, CKD 3-4, OR last GFR 15-59)GFR test (Diabetes, CKD 3-4, OR last GFR 15-59)[facility] Centerart: 28-16-2649Dsgbkwvfd for malignant neoplasm of colonBon [facility]art: 32-59-2818Gjosutgydc A1c wexphyblsqsS6X test (Diabetic or Prediabetic)[facility] Centerart: 76-42-5241Dilnb panelBon [facility]art: 95-60-6445Hphiz screening for proteinDiabetic Alb to Cr ratio (uACR) testBon [facility] Generalart: 56-33-4489WTLSE-19 Vaccine ( season)COVID-19 Vaccine ()[facility] HealthcareComment on above:Postponed from 08/25/2024 (Patient Refused)Start: 43-30-9572Wizicpimst ScreenDepression ScreenBon [facility] Generalart: 28-56-7935Kerdvzdbo A vaccine (1 of 2 - Risk 2-dose series) Hepatitis A vaccine (1 of 2 - Risk 2-dose series)[facility] HealthcareComment on above:Postponed from 1968 (Patient Refused)Start: 11-35-7593DAIYX-19 Vaccine ( season)COVID-19 Vaccine ( season)[facility] Start: 06-14-2025 End: 54-87-1469Qdpuezn encounter kseyqkvbw94/22/2026 1:00 PM EST Office Visit [facility] Part of [address] [place] [phone] Sandra Alvarenga MD [address] [place] [address], [address] [place] [address] ShopsenseGRE[facility] Part [facility] Medical CenterComment on above: RealDot checkStart: 79-71-0630Zwopx screening for proteinUrine Protein (microalbumin)[facility]roHealthStart: 04-11-2025 End: 59-49-9708Yyixngd encounter riwndgpoq70/19/2025 9:50 AM EST Office Visit Cooper Eller MD [address] [place] [address] [place] [address] Cooper Eller MD [address] [place] [address], [place] [address] Terrell Eller MDComment on above:mawStart: 04-04-2025 Hemoglobin A1c measurementHemoglobin G9JLccbcJdyfeeStmqe: 82-74-2479Pwdvhl Wellness Visit (Medicare)Annual Wellness Visit (Medicare)[facility] HealthcareStart: 03-28-2025 End: 57-49-1172JQ Cervical spine Lateral Views W flexion and W extensionXR C- SPINE FLEX/EXT ONLY 2 VIEWS Imaging Routine Cervical spondylosis with myelopathy Expected: 03/28/2025, Expires: 03/28/2026THE [employer] Work Phone: Comment on above:Expected: 03/28/2025, Expires: 03/28/2026Start: 03-27-2025 End: 89-31-7703Kyffhpz encounter /04/2025 11:30 AM EST Office Visit [facility] [place] [phone] Prashant Alvares, VARNISH MAKER HELPER - [address] [address] post op keep 30 minutesWyandot Specialty Providers on [facility] Children'S HospitalComment on above:post op keep 30 minutesStart: 79-54-4481Ujyuxf Wellness Visit (G0439)Annual Wellness Visit (G0439)MetroHealthStart: 90-99-8672Rysubxgbpj ScreenDepression ScreenBon [facility] HospitalStart: 03-21-2025 End: 68-19-4076DZZNIC NERVE STIMULATIONTIBIAL NERVE STIMULATION Overactive bladder Mixed incontinence 03/21/2025 7:[address] Charles Hospitaltart: 01-35-2443Yxzeqhhymw A1c bwwinfqthicG5J test (Diabetic or Prediabetic)Kelli Madrid [facility] HospitalStart: 37-21-8963Xrmxs screening for proteinUrine Protein (microalbumin)MetroHealthStart: 03-09-2025 End: 76-31-7311Jhsfgcd encounter chzmtixbu80/17/2025 10:15 AM EDT Procedure visit [facility] Part [address] [place] [phone] Sandra Alvarenga MD [address] [facility], [address] [place] [address] cystoscopy, CT already completedGRE[facility] Part [facility] Medical CenterComment on above:cystoscopy, CT already completedStart: 02-27-2025 End: 77-49-8055Jntxtbe encounter aaarntzaz51/07/2025 3:00 PM EDT Appointment [facility] [address] [phone] Home Sleep Study-repeatWESTCHESTER SQUARE [facility] Sleep CenterComment on above:Home Sleep Study-repeatStart: 57-67-9329Tsfajwawz vaccinationProMedica Health SystemStart: 01-03-2025 End: 75-42-0575Jkmdksi encounter bmmkkwhya56/13/2025 2:15 PM EDT Office Visit [facility] [address] [place], [phone] Jr. Keith Gabriel, DO [address] [facility] [address] [place] [address] Left hip painNOMS Abraham OrthopaedicsComment on above:Left hip painStart: 19-51-4398Hmyta panelLipid ProfileMetroHealthStart: 12-19-2024 End: 50-08-5774Rzrhxbz encounter rtfyhpmxt75/29/2025 2:15 PM EDT Office Visit [facility] Part of [address] [place] [address] Destinee Coughlin, WM -CNStephanie [address] [place] [address] [address] [place] [address] yearly-last PAP 12/15/2022-MedicareMER[facility]ECOLOGY Part of Hospital For Special CareComment on above:yearly-last PAP 12/15/2022-MedicareStart: 38-24-7618Wwhptvnn foot examinationDiabetic foot exam [facility] HealthcareStart: 12-13-2024 End: 79-79-7271Kdmogbs encounter utulwvmvm11/23/2025 1:15 PM EDT Office Visit [facility] [address] [place] [address] Jr. Keith Gabriel, DO [address] [place] [address] [facility] ORTHOStart: 12-05-2024 DTaP/Tdap/Td vaccine (1 - Tdap)DTaP/Tdap/Td vaccine (1 - Tdap)Bon [facility] District HospitalComment on above:Postponed from 1968 (Patient Refused)Start: 45-56-1421Oxclaijcu [Moles/volume] in Serum or PlasmaPOTASSIUMOSU [facility] Hospitaltart: 44-58-6295DMI vaccine (adult) (1 - 1-dose 75+ series)RSV vaccine (adult) (1 - 1-dose 75+ series)MetroHealthStart: 10-17-2024 End: 25-85-0694Dwrgarn encounter xfrdatxmj06/27/2025 2:00 PM EDT Office Visit [facility] [address] [facility] [place] [phone] Anjelica Holland MD [address] [facility] [address] [place] [address] [facility]atob[facility], Pancreatic & Endocrine SurgeryStart: 10-11-2024 End: 83-96-2080Qtbtlwp encounter phdkvtnea45/21/2025 2:20 PM EDT Office Visit Cooper Eller MD [address] [place] [address] [place] [address] Cooper Eller MD [address] [place] [address], [address] [place] [address] 2 week follow Vivek Eller MDComment on above:2 week follow upStart: 09-25-2024 End: 18-64-5381Ehyaprs encounter kojszfjas46/05/2025 1:30 PM EDT Office Visit Cooper Eller MD [address] [place] [address] Cooper Eller MD [address] [facility] [place] [address] 6 month f/Melinda Eller MDComment on above:6 month f/uStart: 78-30-3903Vsosz panelLipidsBon Secours [facility] HospitalStart: 33-80-8612Zrxtgtbfjh A1c measurementHemoglobin V9MQzbbdMkvddfPevlk: 93-11-2548ZNAXE-19 Vaccine ( season)COVID-19 Vaccine ()[employer] Start: 06-20-2024 End: 62-18-1444Olyvkgo encounter procedureNOMS FB ORTHOPAEDICSComment on above: ArrivedStart: 06-01-2024 End: 21-69-9917Icaistr encounter bsojvxokl09/09/2025 1:30 PM EST Office Visit [facility] [address] [place] [phone] Prashant Alvares, VARNISH MAKER HELPER - WET ROLLER [address] [place] [address] [facility] [address] [place] [phone] 8 week f/u/ patient bringing deviceGRE[facility] Part [facility] Medical CenterComment on above:8 week f/u/ patient bringing deviceStart: 04-12-2024 End: 17-04-0549JG Cervical spine Lateral Views W flexion and W extensionXR C- SPINE FLEX/EXT ONLY 2 VIEWS Imaging Routine Cervical spondylosis with myelopathy Expected: 04/12/2024, Expires: 04/12/2025THE [employer] Work Phone: Comment on above:Expected: 04/12/2024, Expires: 04/12/2025Start: 04-06-2024 End: 37-46-2952Kiamxuc encounter hhuwurzty15/14/2024 11:00 AM EST Office Visit [facility]ine [address] [place] [address] Geri Vergara MD [address] [place] [address] [facility] Orthopedic SpineStart: 34-31-3490Zjwnvrdpik measurementBasic Metabolic PanelMetroHealthStart: 03-20-2024 End: 64-37-0220Pfkdgpw encounter procedureNOMS FB ORTHOPAEDICSComment on above: ArrivedStart: 73-49-0271Snevf panelLipid ProfileMetroHealthStart: 03-15-2024 Urine screening for proteinMicroalbuminMetroHealthStart: 37-58-0615Gefnaajm screeningEye ExamMetroHealthStart: 02-02-2024 End: 90-53-6707Jooifzr encounter procedureNOMS SWS ORTHOComment on above:Arrived Start: 52-64-5823Dhtcvldgg vaccinationINFLUENZA VACCINE (#1)OSRegional Medical Centertart: 01-50-0484Qzeqptrzx for malignant neoplasm of breastBreast cancer screenBON MADISON HEALTHStart: 88-20-4872BJDIB Vaccine Additional Dose (65+ years)COVID Vaccine Additional Dose (65+ years) MetroHealthStart: 11-29-2023 End: 62-77-5452SYV TUMOR MARKEROSU [facility] Medical CenterComment on above: Expected: 11/29/2023 (Approximate), Expires: 11/28/2024Start: 09-16-2023 End: 05-45-6355Cbpcaeo encounter qgnosmnjv77/25/2024 11:15 AM EDT Office Visit [facility] Spine [address] [place] [address] Geri Vergara MD [address] [place] [address] [facility] SpineStart: 09-15-2023 End: 85-22-1974AR Cervical spine Lateral Views W flexion and W extensionXR C- SPINE FLEX/EXT ONLY 2 VIEWS Imaging Routine Cervical spondylosis with myelopathy Expected: 09/15/2023, Expires: 09/14/2024THE [employer] Work Phone: Comment on above:Expected: 09/15/2023, Expires: 09/14/2024Start: 06-24-2023 End: 15-24-4263Tivipcz encounter dnwhekwhd06/01/2024 10:45 AM EST [facility] [address] [place] [address] Geri Vergara MD [address] [place] [address] [facility] Orthopedic SpineStart: 06-17-2023 End: 43-26-0406Kxrvsyz encounter guutofwfa49/25/2024 10:45 AM EST [facility] [address] [place] [address] Geri Vergara MD [address] [place] [address] [facility] Orthopedic SpineStart: 11-36-5393Mxefutgyhb A1c measurementHemoglobin A7WYndtyFrfgtfIzutf: 04-22-2023 End: 46-65-3718Pkkyazs encounter procedureMetroLakehealth [facility] Orthopedic SpineStart: 03-31-2023 End: 27-10-5176Rucsbqevk to same day surgery onwptg8303/31/2023 7:30 AM EST - 03/31/2023 10:23 AM EST Surgery [facility] Main OR [address] [place] [address] Geri Vergara MD [address] [place] [address] LAMINOPLASTY, POSTERIOR CERVICALMetroLakehealth [facility] Main ORComment on above:LAMINOPLASTY, POSTERIOR CERVICALStart: 03-31-2023 End: 12-84-1142IOCALBRKPYDQ, POSTERIOR CERVICALLAMINOPLASTY, POSTERIOR CERVICAL Routine scheduled Cervical spondylosis with myelopathy 03/31/2023 7:30 AM EST MetroLakehealth Tripoint Medical CenterStart: 25-77-7595Aiagvdjkej hospital visit by physicianA[facility] HospitalroL[facility] Main ORStart: 03-23-2023 End: 40-75-6386Dhegvxy encounter gsbjaotap30/31/2023 10:30 AM EDT Office Visit [facility] Pre Surgical Evaluation [address] [place] [address] Dee Mireles, VARNISH MAKER HELPER-SHEILA [address] [facility] [place] [address] [facility] Pre Surgical EvaluationStart: 03-23-2023 End: 18-17-3685Njoimmq encounter procedureMetFort [facility] Hospital Radiology CTStart: 56-40-7297BUK test (Diabetes, CKD 3-4, OR last GFR 15-59)GFR test (Diabetes, CKD 3-4, OR last GFR 15-59)[facility] HealthcareStart: 84-88-9518Ekdyoh Wellness Visit (G0439)Annual Wellness Visit (G0439)[facility]: 84-74-2379Izpowhawi vaccinationInfluenza Vaccine (#1)[facility] HospitalStart: 02-15-2023 End: 76-22-6865RH Cervical spine WO contrastCT C-SPINE W/O CONTRAST Imaging Within 1 week Cervical spondylosis with myelopathy Expected: 02/15/2023, Expires: 02/16/2024THE [facility] HOSPITALAxcelis Technologies SYSTEM Work Phone: Comment on above:Expected: 02/15/2023, Expires: 02/16/2024Start: 02-11-2023 End: 15-90-2715Tvjizwy encounter jvlwcovvi88/21/2023 10:30 AM EDT Office Visit [facility] Orthopedic Spine [address] [place] [address] Geri Vergara MD [address] [place] [address] [facility] Orthopedic SpineStart: 97-00-1417AWYRL-19 Vaccine ( season)COVID-19 Vaccine ()[facility] HospitalStart: 58-10-8362Lxkgyxuji for malignant neoplasm of breast [facility] HospitalStart: 11-03-2022 End: 19-71-3502Braijsl encounter zbyzkkksf43/13/2023 Office Visit Obstetrics and Gynecology Destinee Coughlin, WM - JEFFREY [address] [facility] [address] [place] [phone] [facility] Part of [facility] Medical Centertart: 92-39-4076viaitdjtkyNdzjjscdqw Facility:U1Uoohq: 10-29-2022 End: 81-36-8807Ayalqjh encounter nfxflvoiq68/08/2023 9:45 AM EDT Office Visit [facility] Orthopedic Spine [address] [place] [address] Geri Vergara MD [address] [place] [address] [facility] Orthopedic SpineStart: 10-06-2022 End: 97-98-8118Lebjmvw encounter vcppfwzqu06/16/2023 Office Visit Orthopedics Geri Vergara MD [address] [place] [address] [facility] Orthopedic SpineStart: 09-23-2022 End: 29-51-9604QAADIFEV POWERSHARE IMAGES TO EPICDOWNLOAD POWERSHARE IMAGES TO EPIC Imaging Routine Spinal stenosis of lumbar region, unspecified whether neurogenic claudication present Expected: 09/23/2022, Expires: 09/24/2023THE [employer] Work Phone: Comment on above:Expected: 09/23/2022, Expires: 09/24/2023Start: 77-24-6135Sgtncszjet ScreenDepression ScreenBON SECOURS [facility]INCIN[facility] HOSPITALStart: 83-26-7821QHtY/Tdap/Td vaccine (1 - Tdap)DTaP/Tdap/Td vaccine (1 - Tdap)KELLI KRYSTAL [facility]INERS HOSPITALComment on above:Postponed from 1968 (Patient Refused)Start: 39-24-4812Oohagloyry measurementCreatinine monitoringDunlap Memorial HospitalStart: 74-04-1761Eyzzljztg monitoringPotassium monitoringDunlap Memorial Hospital Start: 03-24-2022 End: 95-63-2903Xuqoczz encounter tohgdtyic99/01/2022 Office Visit Urology Prashant Alvares, VARNISH MAKER HELPER - WET ROLLER [address] [facility] [address] [place], [phone] [facility] Part of [place] HospitalStart: 69-25-0796Ggkbvqpvps ScreenDepression ScreenDunlap Memorial HospitalStart: 03-17-2022 End: 97-94-1216Riwvqck encounter wpvagiqnn84/25/2022 Office Visit Internal Medicine Cooper Eller MD [address] [place] [address] [place] [address] Cooper Eller MDStart: 55-85-2965Oshjbt Wellness Visit (AWV)Annual Wellness Visit (AWV)[facility] HospitalStart: 03-12-2022 Diabetic foot examinationDiabetic foot examDunlap Memorial HospitalStart: 03-04-2022 Hemoglobin A1c fujdlgktyaoP0T test (Diabetic or Prediabetic)[facility] HospitalStart: 69-99-6848Dalin panelDunlap Memorial HospitalStart: 60-29-1904Jgsgpfp stimulating hormone measurementTSH testingDunlap Memorial HospitalStart: 30-88-1015Bkykf screening for protein Diabetic microalbuminuria testDunlap Memorial HospitalStart: 36-28-8955Vzxesihbs vaccination Flu vaccine (#1)KELLI KRYSTAL [facility]OSPITALStart: 01-20-2022 End: 82-75-6301Gqcdefv encounter fckrhmuow76/30/2022 Office Visit Urology Prashant Alvares, VARNISH MAKER HELPER - WET ROLLER [address] [place], [id number] [facility] Part of [place] HospitalStart: 31-11-1682Zdlhwziuf for malignant neoplasm of breastMAMMOGRAM SCREENING DISCUSSIONOSRegional Medical Centertart: 10-30-2021 End: 55-60-3376Cgejewo encounter suxktzsdv09/09/2022 Office Visit Obstetrics and Gynecology Destinee Coughlin, VARNISH MAKER HELPER - CNM [address] [facility] [address] [place], [place] [address] [facility] Part of [place] HospitalStart: 09-17-2021 End: 01-61-7476Krcmupe encounter ggwxbsfeh55/27/2022 Office Visit Internal Medicine Cooper Eller MD [address] [facility], [place] [address] Cooper Eller MDStart: 18-08-2501Oodvfgvqa A vaccine (1 of 2 - Risk 2-dose series)Hepatitis A vaccine (1 of 2 - Risk 2-dose series)[facility] Memorial HospitalComment on above:Postponed from 1950 (Not Indicated) Start: 08-28-2021 End: 83-93-7753Oulhkuw encounter wrgltheuo35/07/2022 Office Visit Urology Prashant Alvares, VARNISH MAKER HELPER - WET ROLLER [address] [facility] [address] [facility], [phone] [facility] Part of [place] HospitalStart: 55-31-1865Gditkfnwb for malignant neoplasm of colonCOLORECTAL CANCER SCREENING DISCUSSIONOSRegional Medical Centertart: 08-05-2021 End: 44-84-8779Myqbpcdjf to same day surgery aiusjv6508/05/2021 Surgery IP Unit Sandra Alvarenga MD [address] [facility], [address] [place], [place] [address] SACRAL NERVE STIMULATOR IMPLANT--REMOVE INTERSTIM AND LEADSPLACEMENT OF NEW INTERSTIMMTHZ ORComment on above:SACRAL NERVE STIMULATOR IMPLANT--REMOVE INTERSTIM AND LEADS PLACEMENT OF NEW INTERSTIM Start: 08-05-2021 End: 07-17-0087Nhg impltj neurostimulator eltrd sacral nerveFostoria City Hospital HospitalStart: 05-13-7400Fctnkiqxze hospital visit by fkospmxpb53/15/2022 Hospital Encounter IP Unit Sandra Alvarenga MD [address] [facility], [address] [place] [address] [facility] ORStart: 82-73-6373Vykiwhgq retinal examDiabetic retinal examBellevue Hospital, KYStart: 77-20-6352Mqwpd count complete auto&auto difrntl wbcCBC w Tello [facility] Start: 89-99-4256Rueyjhjjeblta metabolic panelComp [place] LEYIO [facility] Start: 03-43-4710Kvhhqgjxxi measurementCreatinine [facility] [place], KYStart: 27-79-0471WyM2l (Bld) [Mass fraction]A1C test (Diabetic or Prediabetic)[facility], KYStart: 86-98-8381Djwap panel Lipid screenBellevue Hospital, KYStart: 67-96-2169Hdpxhpphd monitoringPotassium [facility] [place], KYStart: 14-46-1684Abhxs count complete auto&auto difrntl wbcIntact Vascular [facility] Start: 56-07-8513Xttvjokfcluhc metabolic panelConoverMotorwayBuddy [facility] Start: 04-23-2020 End: 46-55-4829Jlzmeu Visit04/23/2020 Office Visit Urology Prashant Alvares, VARNISH MAKER HELPER - WET ROLLER [address] [facility] [address] [place], [phone] [facility] Part of [place] HospitalStart: 45-55-1673Ddqaa count complete auto&auto difrntl wbcCBC w CallResto Start: 31-56-2059Zxptiqydzkgxv metabolic panelComp [place] LEYIO [facility] Start: 92-69-8642Awtlqwvf retinal examDiabetic retinal examDunlap Memorial HospitalStart: 27-39-2056Zkivasft retinal examDiabetic retinal examBellevue Hospital, KYStart: 03-06-2020 End: 37-91-0905Pdofft Visit03/06/2020 Office Visit Internal Medicine Cooper Eller MD [address] [place] [address], [place] [address] Cooper Eller MDStart: 42-25-8736Tounnm Wellness Visit (AWV)Annual Wellness Visit (AWV)[facility], DARIUSStart: 38-00-2818VGwC/Tdap/Td vaccine (1 - Tdap) DTaP/Tdap/Td vaccine (1 - Tdap)[facility], DARIUSComment on above:Postponed from 1968 (Patient Refused)Start: 84-94-2091Qcfhdhby Vaccine (2 of 3) Shingles Vaccine (2 of 3)[facility], NMComment on above:Postponed from 11/29/2013 (Patient Refused)Start: 71-47-6367Rgflqg Wellness Visit (AWV)Annual Wellness Visit (AWV)[facility], DARIUSStart: 61-26-7942X5Y test (Diabetic or Prediabetic)A1C test (Diabetic or Prediabetic)[facility], [place]Start: 05-10-8073IUR QnTSH [facility], [place]Start: 44-30-8921YZB testingTSFort Hamilton Hospital, [place]Start: 00-15-6170Eramg count complete auto&auto difrntl wbcCBC, PLATELET, DIFFERENTIAL, AUTOMATEDConoverMotorwayBuddy [facility] Start: 58-20-4897Wsgx energy X-ray photon absorptiometryDEXA bone density study of axial skeletonConoverMotorwayBuddy [facility] Start: 25-52-5814Adzon count complete auto&auto difrntl wbcCBC w diffConoverMotorwayBuddy [facility] Start: 62-00-8361Ewubyoimsnbfv metabolic panelComp [place] [employer] [facility] Start: 03-55-5560Mmrwoe cancer screenBreast cancer screenBellevue Hospital, KYStart: 09-95-4662Rdztmznsv for malignant neoplasm of breastBreast cancer screenBellevue Hospital, KYStart: 10-26-2019 End: 12-51-0873Ttzaiz Visit10/26/2019 Office Visit Obstetrics and Gynecology Destinee Coughlin, VARNISH MAKER HELPER - CNM [address] [id number] [facility] OBSTETRICS & GYNECOLOGYStart: 10-10-2019 End: 68-66-5601Awschk Visit10/10/2019 Office Visit Obstetrics and Gynecology Destinee Coughlin, VARNISH MAKER HELPER - CNM [address] [place] [address] [facility] OB/GYNStart: 08-29-2019 End: 21-89-3810Koomen Visit08/29/2019 Office Visit Internal Medicine Cooper Eller MD [address] [place] [address], [facility] [place] [address] Cooper Eller MDStart: 93-85-0581F8T test (Diabetic or Prediabetic)A1C test (Diabetic or Prediabetic)[facility], [place]Start: 10-84-8454Owsfryluhk monitoringCreatinine [facility] [place], [place]Start: 64-55-6577Iwtyjjwbu monitoringPotassium [facility] [place], [place]Start: 15-13-8528Erpoi count complete auto&auto difrntl wbcCBC w diffConoverMotorwayBuddy [facility] Start: 59-02-8510Rgurohaizhbnm metabolic panelWhite City LEYIO [facility] Start: 01-77-2638Xpqwj count complete auto&auto difrntl wbcCBC, PLATELET, DIFFERENTIAL, AUTOMATEDConoverMotorwayBuddy [facility] Start: 99-23-1895Neaiq count complete auto&auto difrntl wbcCBC w CallResto Start: 42-13-7101Kchqyihxfosvw metabolic panelCMP [place] [employer] Start: 03-10-2019 End: 46-24-7493Odxndp Visit03/10/2019 Office Visit Urology Prashant Alvares, VARNISH MAKER HELPER - WET ROLLER 27 [facility] [address] [place], [place] [place] UrologyStart: 62-20-2331Yzyzf count complete auto&auto difrntl wbcCBC, PLATELET, DIFFERENTIAL, AUTOMATEDGray [employer] Start: 33-72-4032Bovivwyqsfhsh metabolic panel COMPREHENSIVE METABOLIC PANELConoverOraHealth Start: 02-25-2019[object Object]Diabetic foot examB[facility]vue Hospital, NMStart: 54-82-4209Thdpowzi foot examinationDiabetic foot examBellevue Hospital, NMStart: 38-91-0267Kzdlcvrrw A vaccine (1 of 2 - Risk 2-dose series) Hepatitis A vaccine (1 of 2 - Risk 2-dose series)[place], [place]Comment on above:Postponed from 1950 (Not Indicated)Start: 02-24-2019 End: 68-69-9485Gnbvlv Visit02/24/2019 Office Visit Internal Medicine Cooper Eller MD [address] [place] [address], [address] [place], [place] [id number] Cooper Eller MDStart: 25-46-3594Jaqux screenLipid screenBlanchester, [place] Start: 77-26-9381Qjmjgfkmk vaccinationFlu vaccine (#1)[place], KYStart: 71-48-9931Vcabz count complete auto&auto difrntl wbcCBC w CallRest[employer] Start: 90-81-4047Irrxxppqcvkwp metabolic panelComp [employer] Start: 04-34-4735Vvwpt count complete auto&auto difrntl wbcCBC, PLATELET, DIFFERENTIAL, AUTOMATEDStarNet Interactive Start: 84-69-4971Hnpezuryzwomb metabolic panel COMPREHENSIVE METABOLIC PANELGray Routes [employer] Start: 08-32-4769Fpukh count complete auto&auto difrntl wbcCBC w [employer]Rest[employer] Start: 20-87-5459Xqnqxqdvrjwji metabolic panelCom [employer] Start: 11-55-9161SXQ testingMercy Health St. [facility], [place]Start: 98-99-1109Rcbxb count complete auto&auto difrntl wbcCBC, PLATELET, DIFFERENTIAL, AUTOMATEDStar[employer] Start: 48-73-6901Mfihn count complete auto&auto difrntl wbcCBC w [employer] Start: 01-17-6874Vzyapdalsmaof metabolic panelCom [employer] Start: 48-59-6946Qwfzennr microalbuminuria testDiabetic microalbuminuria [facility], [place]Start: 89-26-6854Ujdfh screening for proteinDiabetic Alb to Cr ratio (uACR) testBon Secours Dunlap Memorial HospitalStart: 92-79-3316Yfckyb wellness visitAnnual Wellness Visit (G0438)[facility]roHealthStart: 53-57-9945Kbxv Risk ScreeningFall Risk ScreeningOhio Valley Hospital SystemStart: 76-71-4137Xdzrymgzvlkz vaccinationPneumococcal Vaccine(s) (65+ yrs) (1 - PCV) [facility]HealthStart: 49-24-1085Xzbbfhqme for osteoporosisBone Densitometry MetroHealthStart: 51-64-0899Hgzlsgcgaclitk of varicella zoster vaccineZoster (Shingles) Vaccine (2 of 3)[facility] Uniontart: 01-30-7275Wljiogky Vaccine (2 of 3)Shingles Vaccine (2 of 3)[facility]: 48-68-8744Avezvj vaccine hzv live for subcutaneous useZOSTER (SHINGLES) VACCINE (2 of 3)[facility] Hospitaltart: 85-30-8835Nulyko Wellness Visit (AWV)Annual Wellness Visit (AWV)[place], [place]Start: 60-51-6386Vtwdkbvtq B (HBV) Vaccine (optional start 60+ years)Hepatitis B (HBV) Vaccine (optional start 60+ years) [facility] CenterStart: 75-81-6347Pxcsfpgxt B vaccinationHEP B VACCINE (1 of 3 - Risk 3-dose series)[facility]art: 80-92-3074SYK vaccine (optional 60+ years)RSV vaccine (optional 60+ years)MetroLakehealth [facility]point Medical CenterStart: 01-60-1387Hdrgbgbn (RZV) Vaccine (1 of 2)Shingles (RZV) Vaccine (1 of 2)MetFort Hamilton HospitalStart: 63-94-1186Bfzybylyapk [Mass/volume] in Serum or PlasmaCholesterolParkwood Hospital Start: 01-01-5578Tuofsdwvv for malignant neoplasm of colonDunlap Memorial HospitalStart: 61-13-2646Axeiy panelLIPID SCREENINGProMedica Flower Hospitaltart: 1989 Screening for malignant neoplasm of breastMammographyMetroLakehealth Tripoint Medical CenterStart: 71-64-7586Nivsexewm for malignant neoplasm of cervixCERVICAL CANCER SCREENING DISCUSSIONOSRegional Medical Centertart: 24-46-0613ALtX,Tdap and Td Vaccines (1 - Tdap)DTaP,Tdap and Td Vaccines (1 - Tdap)[facility]: 57-23-6040XZhL/Tdap/Td vaccine (1 - Tdap)DTaP/Tdap/Td vaccine (1 - Tdap)[facility] HospitalStparis: 67-08-3467Fzdwumcqj A (HAV) Vaccine (optional start 19+ years) Hepatitis A (HAV) Vaccine (optional start 19+ years)MetroLakehealth Tripoint Medical CenterStart: 1968 Hepatitis A vaccine (1 of 2 - Risk 2-dose series)Hepatitis A vaccine (1 of 2 - Risk 2-dose series)[facility] HealthcareStart: 38-20-4577Kraqh diphtheria, tetanus and acellular pertussis (DTaP) vaccinationTDAP (ADULT)OSRegional Medical Centertart: 72-92-2109Nblxy BMI Follow Up PlanAdult BMI Follow Up Plan [facility] SystemStart: 92-67-6826Ykunowigk C screeningHepatitis C AntibodyMetroHealthStart: 04-79-7879Lmzerin + diphtheria + acellular pertussis vaccine (product)Tdap BoosterMetroHealthStart: 23-45-5062Uoevrwrwb A vaccine (1 of 2 - Risk 2-dose series)Hepatitis A vaccine (1 of 2 - Risk 2-dose series)[facility] SYSTEMSStart: 16-79-3432SBBZR-19 Vaccine (#1)COVID-19 Vaccine (#1) MetroHealthStart: 36-08-7167Xhsxdmzd screeningEye ExamMetroHealthStart: 23-07-2355Tcmji screening for proteinMicroalbuminMetroHealthStart: 1950 COVID-19 Vaccine (1253-0779 formulation)COVID-19 Vaccine (0321-8981 formulation) MetroHealthStart: 74-32-3360Wqduynqkiqnwvq vitamin b-12Vitamin K77MrcsqCscaym Start: 58-97-5614Wuizmasv foot examinationFoot ExamMetroHealthStart: 1950 Hepatitis C screeningHEPATITIS C VIRUS SCREENINGOSRegional Medical Centertart: 13-38-6098Nptfklujd for malignant neoplasm of colonMetroHealthStart: 1950 Screening for osteoporosisDEXA SCAN DISCUSSIONOSRegional Medical Centertart: 25-46-5426Ssrsard vaccinationTETANUSOSRegional Medical Centertart: 1950 Thyroid stimulating hormone measurementTSHMetroHealth End: 05-16-6073JYJ W Auto Differential panel - BloodCBC auto differential Lab Routine Daily for 9 Days starting 09/28/2024 until 10/06/2024, 2 completedBon [facility]land [facility] HospitalComment on above:Daily for 9 Days starting 09/28/2024 until 10/06/2024, 2 completed End: 45-31-8188GYT,PLATELETSCBC,PLATELETS Lab Routine Primary biliary cholangitis Abnormal LFTs Splenomegaly Every 16 Weeks for3 Occurrences starting 11/29/2023 until 11/28/2024, 1 [facility] HospitalComment on above:Every 16 Weeks for 3 Occurrences starting 11/29/2023 until 11/28/2024, 1 completed End: 09-89-9117Sqovdfhxxujyt Metabolic Panel w/ Reflex to MGComprehensive Metabolic Panel w/ Reflex to MG Lab Routine Daily for 9 Days starting 09/29/2024 until 10/07/2024, 1 completedCo[facility] eBayComment on above:Daily for 9 Days starting 09/29/2024 until 10/07/2024, 1 completedCulture, Blood 1 Culture, Blood 1 Microbiology STAT 09/28/2024 2:05 PM EDTBon eBayCulture, Blood 2Culture, Blood 2 Microbiology STAT 09/28/2024 4:20 PM EDT [facility] [employer] End: 71-33-3814Pdrameg, UrineCulture, Urine Microbiology Routine Mixed incontinence 1 Occurrences starting 2019 until 2019[facility], ViFluxComment on above:1 Occurrences starting 2019 until 2019Culture, UrineCulture, Urine Microbiology Routine Mixed incontinence 2019 3:24 PM EDSelect [facility], DARIUS End: 99-93-7111Ypsumlb, UrineBON itsDapper Work Phone: Comment on above:1 Occurrences starting 11/18/2021 until 11/18/2021 End: 58-80-4294Qektznn, UrineBON itsDapper Work Phone: Comment on above:1 Occurrences starting 01/20/2022 until 01/20/2022 End: 02-14-3802Nfcwgyb, UrineBon [employer] Work Phone: comment on above:1 Occurrences starting 03/28/2024 until 03/28/2024 End: 31-54-9518Kdlvnxz, UrineBon eBayComment on above:1 Occurrences starting 02/06/2025 until 02/06/2025 End: 89-71-8138Xfzllrf, UrineBon eBayComment on above:1 Occurrences starting 02/14/2025 until 02/14/2025 End: 12-17-3507Kjy routine ecg w/least 12 lds trcg only w/o i&rEKG 12 LEAD - PERFORM MUSE Routine Preop testing 1 Occurrences starting 03/22/2023 until 04/05/2023[facility] Work Phone: Comment on above:1 Occurrences starting 03/22/2023 until 04/05/2023EKG 12 leadEKG 12 lead ECG Routine 09/29/2024 3:46 AM EDTBon eBay End: 93-54-7793Ytvsjeklucv during operationFLUORO FOR SURGICAL PROCEDURES Imaging Routine Once for 1 Occurrences starting 08/05/2021 until 08/05/2021[facility] Work Phone: comment on above:Once for 1 Occurrences starting 08/05/2021 until 08/05/2021 End: 43-19-3823CHWTGAI PROCEDUREGENERAL PROCEDURE Procedures Routine Once for 1 Occurrences starting 09/20/2024 until 09/20/2024[facility] Work Phone: comment on above:Once for 1 Occurrences starting 09/20/2024 until 09/20/2024 End: 57-34-5772Fcfnqnh [Mass/volume] in Serum or PlasmaPOCT glucose Point of Care Testing Routine One Time for 1 Occurrences starting 09/29/2024 until on eBaySaint [facility] Hospital on above:One Time for 1 Occurrences starting 09/29/2024 until 09/29/2024 End: 25-78-1217Qdrjwikxne and HematocritHemoglobin and Hematocrit Lab Routine Post Transfusion Post Transfusion Post Transfustion until discontinued starting 09/29/2024 eBaySaint Louis University Hospital on above:Post Transfusion Post Transfusion Post Transfustion until discontinued starting 09/29/2024 End: 56-96-2616Etrqtsv function 2000 panel - Serum or PlasmaHEPATIC FUNCTION PANEL Lab Routine Primary biliary cholangitis Abnormal LFTs Splenomegaly Every 16 Weeks for 3 Occurrences starting 11/29/2023 until 11/28/2024, 1 completedOSU Kettering Health [facility] Soin Medical CenterComment on above:Every 16 Weeks for 3 Occurrences starting 11/29/2023 until 11/28/2024, 1 completed End: 57-45-1997MGGWACK WEDGE PRESSURE/VENOOSU [facility] Work Phone: comment on above:One Time for 1 Occurrences starting 12/07/2023 until 12/07/2023 End: 11-19-4038Nggy Sleep StudyBrainard [facility] Routine Snoring Type 2 diabetes mellitus without complication, without long-term current use of insulin (HCC) / Metformin ER Sleep apnea, unspecified type 1 Occurrences s tarting 02/13/2025 until 02/13/2025 Offerial [facility] on above:1 Occurrences starting 02/13/2025 until 02/13/2025 End: 37-98-4035VYTWRTZI PACU OXYGEN THERAPY PROTOCOLInitiate PACU Oxygen Therapy Protocol Respiratory Care Routine Continuous until discontinued starting 08/05/2021[facility] CampusVidcaster Work Phone: comment on above:Continuous until discontinued starting 08/05/2021LAMINOPLASTY, POSTERIOR CERVICALLAMINOPLASTY, POSTERIOR CERVICAL Routine scheduled Cervical spondylosis with myelopathyMetroHealthOxygen therapy [Minimum Data Set]Initiate Oxygen Therapy Protocol Respiratory Care Routine As Needed until discontinued starting 08/05/2021[facility] CampusVidcaster Work Phone: comment on above:As Needed until discontinued starting 2Oxygen therapy [Minimum Data Set]Initiate Oxygen Therapy Protocol Respiratory Care Routine Daily until discontinued starting 09/28/2024 eBaySaint [facility] Hospital on above:Daily until discontinued starting 09/28/2024Oxygen therapy [Minimum Data Set]Initiate Oxygen Therapy Protocol Respiratory Care Routine As Needed until discontinued starting 03/21/2025[facility] Work Phone: comment on above:As Needed until discontinued starting 03/21/2025 End: 39-77-2436AQSQVJO RBC (CROSSMATCH), 1 UnitsPREPARE RBC (CROSSMATCH), 1 Units Blood Bank Routine Once for 1 Occurrences starting 09/29/2024 until 09/29/2024on eBayComment on above:Once for 1 Occurrences starting 09/29/2024 until 09/29/2024 End: 06-61-4139GISJPOF RBC (CROSSMATCH), 2 UnitsPREPARE RBC (CROSSMATCH), 2 Units Blood Bank Routine Once for 1 Occurrences starting 09/28/2024 until 5Bon [facility] HospitalComment on above:Once for 1 Occurrences starting 09/28/2024 until 09/28/2024 End: 29-21-8246EWIE PATH REQUESTSuburban Community Hospital & [facility] Work Phone: Comment on above:One Time for 1 Occurrences starting 09/20/2024 until 09/20/2024, 1 completed End: 70-15-2991AEEHFDZDMYRLI St. Rita's HospitalComment on above:One Time for 1 Occurrences starting 12/07/2023 until 12/07/2023TYPE AND SCREENTYPE AND SCREEN Blood Bank Routine 09/28/2024 4:20 PM EDSentara [facility] End: 53-63-4676Dutva culture clean catchUrine culture clean catch Microbiology Routine Mixed incontinence OAB (overactive bladder) Frequency of urination Urgency of urination 1 Occurrences starting 01/06/2019 until 01/06/2019[facility], [place]Comment on above:1 Occurrences starting 01/06/2019 until 01/06/2019Urine culture clean catchUrine culture clean catch Microbiology Routine Mixed incontinence OAB (overactive bladder) Frequency of urination Urgency of urination 01/06/2019 10:45 AM [facility]ALLiveHealth[facility] [place], [place] Cervical spine Lateral Views W flexion and W extensionXR C-SPINE FLEX/EXT ONLY 2 VIEWS Imaging Routine Cervical spondylosis with myelopathy 09/16/2023 10:58 AM EDT [facility]HealthXR Cervical spine Lateral Views W flexion and W extensionXR C-SPINE FLEX/EXT ONLY 2 VIEWS Imaging Routine Cervical spondylosis with myelopathy 04/13/2024 11:45 AM ESTMetroHealthXR Cervical spine Lateral Views W flexion and W extensionXR C-SPINE FLEX/EXT ONLY 2 VIEWS Imaging Routine Cervical spondylosis with myelopathy 03/29/2025 11:40 AM ESTMetroLakehealth [facility]point Medical Center Immunizations Immunization DateImmunizationNotesCare QbfkqfutElptvhxl11-00-4011ogxhbiwnc, high dose seasonal, preservative-freeIvelisseomas Colette FOSTER Work Phone: [facility] Work Phone: [phone]s R0ACkyfaiiGeri Vergara MD Work Phone: [phone]gZjquay35-53-8507Amciyerwht F9ILpknwajGeri Vergara MD Work Phone: [phone]zCvicok43-04-6881xshcdewuh, high dose seasonal, preservative-freeCooper Eller MD Work Phone: bon [facility] HospitalWjuwmv60-21-0876xxvcekrkl virus vaccine, unspecified formulationAnjelica Holland MD Work Phone: pLakeHealth TriPoint Medical CenterBygiuk42-78-4010VVGRU-65, PFIZER, (age 12y+), IM, 30mcg/0.3mLMsocrates Eller MD Work Phone: [facility]10-03-2023RSV, ABRYSVO, ( or age 60y+), PF, IM, 0.5mLCooper Eller MD Work Phone: bon [facility] HospitalHbkzmp38-19-3560Hnwzislco, seasonal vaccine, quadrivalent, adjuvanted, 0.5mL dose, preservative free (ELB=905) Geri Vergara MD Work Phone: [phone]uRhcokx90-73-1483fgcjpowys virus vaccine, unspecified formulationSsegun Cordoba MD Work Phone: [facility] Medical CenterLfmgml97-45-0728Idxjqdvsbe A1C Dee Mireles APRN-WET ROLLER Work Phone: [phone]nYxdxhl44-27-1188PSYCZ-51, PFIZER Bivalent, DO NOT Dilute, (age 12y+), IM, 30 mcg/0.3 mLCooper Eller MD Work Phone: bon [facility] HospitalFtoxtt70-11-6867TVOJX-99, PFIZER Bivalent, DO NOT Dilute, (age 12y+), IM, 30 mcg/0.3 mLCooper Eller MD Work Phone: bon [facility] HospitalYlltvm90-18-1017BSIDU-23, PFIZER PURPLE top, DILUTE for use, (age 12 y+), 30mcg/0.3mLMsocrates Eller MD Work Phone: Bon [facility] HospitalYlmidr34-66-5419Xdhpcooch, injectable, high-dose seasonal, quadrivalent, 0.7 mL, preservative free (WYT=182)IwfntZwsuxf51-91-3677jbqorkyxw virus vaccine, unspecified formulation Geri Vergara MD Work Phone: [phone]jSbeezj19-87-5157Xydhrc Monovalent (12+ yrs) SARS-COV-2 (COVID-19) vaccine, mRNA, spike protein, LNP, pres. free, 30mcg/0.3mL dose, nabil-sucrose (TGQ=480)FtesuDqeern70-81-9561CZCIL-12, Pfizer Purple top, DILUTE for use, 12+ yrs, 30mcg/0.3mL doseSandra Alvarenga MD Work Phone: [facility] [employer] Work Phone: [phone], High-dose, Quadv, 65 yrs +, IM (Fluzone)Sandra Alvarenga MD Work Phone: [facility] JDLab Phone: [phone]-18, Pfizer Purple top, DILUTE for use, 12+ yrs, 30mcg/0.3mL doseSandra Alvarenga MD Work Phone: [facility] [employer] Work Phone: [phone]-06, Pfizer Purple top, DILUTE for use, 12+ yrs, 30mcg/0.3mL doseSandra Alvarenga MD Work Phone: [facility] [employer]DL[employer] Phone: [phone] virus vaccine, unspecified formulationSandra Alvarenga MD Work Phone: [facility] Work Phone: [phone], High-dose, Quadv, 65 yrs +, IM (Fluzone)Sandra Alvarenga MD Work Phone: [place] [address]Lbkbel52-04-3554wpbnzotum, high dose seasonal, preservative-free[address], LV42-86-6999muppvszcm, high dose seasonal, preservative-freeThe [facility], GG08-89-6223atokqlzrmrax polysaccharide vaccine, 23 valOhio [facility], UR16-97-3420 Influenza Vaccine, unspecified formulation[address], OZ10-67-5476 influenza virus vaccine, unspecified formulationCooper Eller MD Work Phone: bon [facility] Work Phone: [phone]ac, high dose seasonal, preservative-freeThe [facility], RL46-95-5348Gggiyxonv Vaccine, unspecified formulation[address] Work Phone: [phone], injectable, quadrivalent, preservative freeJuice Melendez MD Work Phone: [facility] HospitalDmlahh62-93-3002kjuceqsthtra conjugate vaccine, 13 [facility], OB50-15-0001arixgxvse virus vaccine, unspecified formulationThe [facility], WQ32-80-9563 Seasonal trivalent influenza vaccine, adjuvanted, preservative Iron Melendez MD Work Phone: [facility] Street HospitalPggokc23-38-1299uoalapzewobb conjugate vaccine, [address], ZT97-36-4212sioakcrpu virus vaccine, unspecified formulationCooper Eller MD Work Phone: bon [facility] Work Phone: [phone] influenza, intradermal, preservative freeMth 2[facility] [place], CC89-44-9319qyoyksoul, high dose seasonal, preservative-free[address], UW21-66-9970rvedhaehj virus vaccine, unspecified formulationL[facility] Hospital05-14-2014zoster vaccine, [facility], CZ59-37-3729bjnicx vaccine, unspecified formulationSsegun Cordoba MD Work Phone: [facility] Medical CenterCeplzw30-93-5299nhlamr vaccine, [facility], FA74-20-8467sblxmpdmunnk polysaccharide vaccine, 23 valentThe [facility], CF08-95-9553tolki skkorwggp-W0Z6-97, preservative-free, injectableMetroHealth Payers DatePayer CategoryPayerPolicy [id number]-ejw66-88-5593Kwybjuednj Indemnity AARP 1.2.840.769198.1.13.56.2.7.9.648750.4542.25889-20-5028Felxvoo Health Insurance AARP 1.2.840.044454.1.13.693.2.7.9.260339.166350.22361-21-9433Tpbuevf Care (unspecified)AAR 1.2.840.384386.1.13.172.2.7.9.383147.13390.70909-67-3804Tniniet 1.2.840.346625.1.13.56.2.7.3.305835.315 2019MedicareMEDICARE MEDICARE PART A AND B xxxxxxxxxxx 2018-Present [phone] [address] [address] [place], [place] [address]zdezjfrcojw 1.2.840.199442.1.13.239.2.7.3.546041.77549-54-7027KdfxqblPrivate Health InsuranceHUMANA HUMANA MEDICARE SUPP xxxxxxxxx 2018-Present [address] [address] [place] [address]lsenatfbe 1.2.840.227426.1.13.239.2.7.3.085298.315 2015Medicare1.2.840.925022.1.13.56.2.7.3.024814.315 2015Medicare FFS MEDICARE 1.2.840.532700.1.13.56.2.7.9.170183.100.315 [id number] 2.840.1.091854.3.32146-28-6858Taepivf Health [id number] 1.2.840.437974.1.13.239.2.7.3.349633.71926-79-5927Hjmznlz2392155 2.16840.1.208409.3.579.2.98964-86-3207Hcbcqss5501257 2.16840.1.503306.3.579.2.91761-40-7458Sppxbzl2413636 2.840.1.869162.3.579.2.31570-65-5676Nrjmciq7729149 2.840.1.592985.3.579.2.99010-27-5795Shxvhxm0515255 2.840.1.333913.3.579.2.78062-23-4176Mxevshk9811672 2.840.1.951720.3.579.2.69421-40-2933Unnybqs7068494 2.840.1.018236.3.579.2.11155-20-9653Chkmchv3182522 2.840.1.817403.3.579.2.98137-95-6117Ebdwylq1214910 2.840.1.497907.3.579.2.62620-83-1637Mjeyniv2395656 2.16840.1.707481.3.579.2.84369-38-2028Gbupcax3196423 2.16840.1.769348.3.579.2.80202-54-1783Vatistm5284124 2.16840.1.597714.3.579.2.72041-78-6598Usvuuzp2463087 2.16840.1.297471.3.579.2.85861-88-1586Tiptihq1679103 2.16.840.1.119145.3.579.2.29021-16-2258Ywovnju1455636 2.16.840.1.914680.3.579.2.76802-76-2701Bhhwuyv1288261 2.16.840.1.141484.3.579.2.07648-18-5733Fzeobtf9424961 2.16840.1.601753.3.579.2.42946-59-4320Vqebcae8221264 2.16840.1.096385.3.579.2.49947-23-9316Hrzqhqa5209686 2.16840.1.128899.3.579.2.19379-46-6147Sqqlglh07948093 2.840.1.929980.3.579.2.80093-74-8775Kqiucfd55599444 2.16840.1.295799.3.579.2.53234-16-6077Jortmwo76157416 2.16840.1.387780.3.579.2.35515-05-8666Wikrfep85033695 2.16840.1.737728.3.579.2.78709-94-2257Jakvsjl91785848 2.16840.1.994987.3.579.2.55140-90-1973Gwlmkpk85137913 2.16840.1.683581.3.579.2.06732-28-2786Vzwbbyq77833007 2.16840.1.798669.3.579.2.11986-59-7204Zulbxom065987072 2.16840.1.546438.3.579.2.27384-62-0497Hwljsqk002739976 2.16.840.1.684907.3.579.2.21698-13-1812Lzgyklc869230909 2.840.1.534826.3.579.2.64344-30-0011Ohcttuv427213990 2.840.1.815336.3.579.2.21409-82-3966Hiyxpyo896951267 2.840.1.354366.3.579.2.73076-38-5894Bkzidlu822210189 2.840.1.415296.3.579.2.55015-91-5073Rnvhhhg537063591 2.0.1.488223.3.579.2.00061-30-2761Zrgsizb745655903 2.0.1.671016.3.579.2.20056-70-8619Ehjyvoa194416656 2.0.1.683909.3.579.2.171645-00-7651Fjatuap243814620 2.0.1.647140.3.579.2.250166-80-3068Hsdivyh115786768 2.0.1.109404.3.579.2.219432-99-4203Gcxdumf992390601 2.0.1.693757.3.579.2.058796-61-9583Gybcmnb95269114 2.0.1.841929.3.579.2.215011-58-9801Tgutpjo29300099 2.0.1.366827.3.579.2.169419-06-9878Gmzrbym46529311 2.840.1.565667.3.57[id number] 2.840.1.667637.3.579.2.[id number] 2.16.840.1.369390.3.57[id number] 2.16.840.1.536836.3.579.[id number] 2.16.840.1.641428.3.579.2.[id number] 2.840.1.385071.3.579.[id number] 2.840.1.210969.3.579.[id number] 2..840.1.520586.3.579.2.52676-16-6412Zswhnei60288937 2.840.1.614886.3.579.[id number] 2.840.1.058184.3.579.2.78704-09-7920Gdkyefl87676814 2.840.1.737842.3.579.2.[id number] 2.840.1.165511.3.579.[id number] 2.840.1.149165.3.579.[id number] 2.840.1.711097.3.579.2.77329-35-3026Aoliphv687962274 2.840.1.866043.3.579.[id number] 2.840.1.808281.3.57[id number] 2.840.1.002580.3.57[id number] 2.0.1.236120.3.579.2.732Private Health [id number] 2.840.[id number] 2.840.1.103243.3.441Unknown [id number] 2.0.1.966381.3.760Mzeosfn55771427 2.0.1.060521.3.579.2.531 Social History DateTypeDetailFacilityStart: 45-67-0877Btrxnb ETOH useUniversity [facility] [employer] Start: 01-06-2019 End: 03-04-2803Tasbwy smokerChillicothe Hospital BusinessElite Start: 05-24-1966 End: 66-01-6598Birlryk of tobacco useCurrent smokerC[facility]: 05-24-1966 End: 95-37-0055Mcwnefh of tobacco useCigarette [facility]: 01-06-2019 End: 39-06-7760Kgzmfdmtqw smoked current (pack per day) - ReportedMetroHealth Start: 01-06-2019 End: 55-42-9313Cddcmao intakeOhio State Health Systemtart: 03-24-2016 End: 28-26-5170Nuduxmr Commentsmoked socially on occassion until 1999[facility]: 53-81-7614Byzklvf CommentsocialC[facility] Clinic [facility]: 18-44-2509Whk Assigned At BirthNot on [facility]: 2019 Alcohol intakeCurrent non-drinker of alcohol (finding)[facility]: 70-61-3386Ywbpyxo SDOH Mtsiwjfff6PwvfeCleveland Clinic [facility]on Hospital: 08-29-2019 End: 33-51-3927Rxrulaz SDOH Food Objmq2QntegCleveland Clinic [facility]on Hospital: 08-29-2019 End: 67-88-4368Nwptqta SDOH Transport Vft3EvkmkC[facility] Clinic [facility]on Hospital: 1950 Sex Assigned At BirthFe[place], [place]Exposure to SARS-CoV-2 (event) Unable to assessCleveland Clinic Avon Hospital: 04-03-2015 End: 50-74-6088Jbhtbgj use and exposureSmokeless tobacco non-userAvita Health System JDLab Phone: start: 07-23-2021 End: 25-72-4588Bljfnfx intakeCurrent drinker of alcohol (finding)[employer] Phone: start: 19-92-7789Rcnynyy SDOH Alcohol Std Eevhgp60 [facility] Phone: start: 38-21-3295Scdervv SDOH Social Connections Phone 3Mthe [facility] [employer] Work Phone: start: 12-30-4286Vggfmck SDOH Social Connections [facility] Work Phone: start: 91-99-6654Gvpvnnr SDOH Physical Activity DPW0 [facility] Phone: start: 55-51-3456Uuzgnwq SDOH Loricdadk7[facility] Work Phone: start: 2021 End: 12-09-1399Crhuvema to SARS-CoV-2 (event)Not sureTrinity Health System East CampusVidcaster Work Phone: start: 11-18-2021 End: 80-21-0450Iatrygl intakeEx-drinker (finding)[facility] [employer] Work Phone: Tobacco smoking statusNo Smoking Status [facility] SystemTobacc smoking status NHISTobacco smoking consumption unknownMetroHealthStart: 50-22-2582Oqzkso identityIdentifies as female gender (finding)MetroHealthStart: 92-96-4867Lounlh orientationHeterosexual (finding) MetroHealthWithin the last year, have you been afraid of your partner or ex-partner?NoMetroHealthDo you belong to any clubs or organizations such as sikh groups, unions, fraternal or athletic groups, or school groups?Yes MetroHealthAre you now , , , , never or living with a partner?Never marriedMetroHealthHow hard is it for you to pay for the very basics like food, housing, medical care, and heatingSomewhat hard MetroHealthDo you feel stress - tense, restless, nervous, or anxious, or unable to sleep at night because yourmind is troubled all the time - these days [OSQ]To some extentMetroHealth(I/We) worried whether (my/our) food would run out before (I/we) got money to buy more.Never trueMetroHealthIn the past 12 months, has lack of transportation kept you from medical appointments or from getting medications?NoMetroHealthStart: 98-76-5315Kafgxohde15GnlbgFjblvkQyyzo: 46-01-0250Lmjamyy Commentcaffeine intake: 1-2 cups per dayNOMS HealthcareHow often to you have a drink containing alcohol?NeverBon Secours Dunlap [facility] HospitalStart: 07-03-2012 End: 07-70-1717TggAptyfa (finding)[facility] HospitalStart: 52-16-1408Anaiifr of drug misuse behaviorMisused drugs in past (finding)[facility] Medical Equipment Procedure CodeEquipment CodeEquipment Original TextEquipment IdentifierDatesKit Lead Sure Scan Interstim Mri - [id number]: 07-96-7374Cowzwnqvp Neurostimulator P26sr8ug Thk3in Torq Wrnch Prod - [id number]: 35-41-9580Azzgnod on above:Description: PIN# [id number] Plate 7mm In-Line Shelf Ea1 1102.7251 - [id number]: 03-31-2023 Screw 2.6 X 6mm Self-Drilling Ea1 1102.5052 - [id number]: 21-00-5582Apnxu 2.6 X 4mm Self-Drilling Ea1 1102.6004 - [id number] Start: 14-38-5949Wwzfftasj: Milo [id number]_cyzZpyzh: 03-21-2025 Comment on above:Description: Ref# [id number] Goals DatePatient GoalDesired Activity/StatePersonal health goalComment on above: Evaluation of progress towards goal: Plan to return home. Functional Status MtonHrcjokhirdJvlbmrAsmepglh51-37-4382Esoxe score [AUDIT-C]0 09/30/2024 9:47 AM EDT Kristine Sotomayor [facility] HospitalIrclux34-60-9493Metjrlxjaqc, Afraid, Rape, and Kick questionnaire [HARK]Wilson Street HospitalFnnsiw84-70-7350Rroiluqfcr StatusN/[facility]01-24-2023Functional StatusN/[facility]12-27-2022Functional StatusN/[facility] Clinical Notes 07-23-2021 to 04-01-2025 Note Date & FwoyLiboNsmxmjle65-11-2814 Evaluation note* Diagnosis Onset Date Resolution Status Admit Date Contusion of left chest wall acuteNovember 2024 1:18pm [facility] Work Phone: 1(881) 381-778911-06-2025 History of Present illness Narrative* Salvador Reza - 03/29/2025 1:04 PM EST Soft cervical collar dispensed by clinician. * Ella Henderson MA - 03/29/2025 11:51 AM EST Patient was identified by name and date of . Ella Henderson MA Patient at risk for falls:No Falls Risk protocol implemented: No * Geri Vergara MD - 03/28/2025 9:47 AM EST DX: 31Mar2023 Posterior cervical laminoplasty, C4 to C7, with Globus Canopy laminoplasty system. LV: 13apr2024 Ms Rubio returns today for her 2 year follow up. PE: Incision C/D/I, at neuro baseline, deltoids intact, she has lost some fascial integrity but theskin is still mobile over the spinous processes. INV: Standing lateral flex-ex cervical xrays, no issues IMP: 74yo female s/p C4-C7 laminoplasty, doing well at 2 year. PLAN: No restrictions, she can follow up PRN. documented in this mtjlfyvpoZxrtgErbidu13-17-4814 History of Present illness Narrative* Rob Young Jr., RN - 03/21/2025 8:55 AM EDT Last bp showed elevated pt moving around removing cuff * Mimi Larry RN - 03/20/2025 11:38 AM EDT Surgery date is 03/21/25[place] [address]/730. Come in the surgery entrance. Stop and register at the desk located once inside the sliding glass doors. Bring photo ID and insurance card; leave all other valuables at home. Nothing to eat after midnight. For your safety, if any food is consumed your procedure may be cancelled. Take the following medications prior to coming in - carvedilol, levothyroxine, omeprazole. Youmay brush your teeth in the morning but do not swallow any contents. You may wear deodorant. No lotion, powder, body spray, perfume/cologne, contact lenses, jewelry of any type or dark nail thai. Use hibiclens as instructed. Wear comfortable clothing. You may have one support person accompany you to the PreOp/Recovery area. If you can't make it the day of surgery please call your doctor or the surgery center. VTE: low risk. Educational material to be given to patient. documented in this encounterEast [facility] Hospital Work Phone: 1(272) 309-779810-29-2025 Hospital Discharge instructions* Discharge Instructions* Rob Young Jr., [facility] - 03/21/2025 8:12 AM EDT SAME DAY SURGERY DISCHARGE INSTRUCTIONS Home Care Do not drive or operate hazardous machinery for the next 24 hours, while taking prescription pain medication, or until cleared by your surgeon. Do not make important personal or business decisions for 24 hours. Do not drink alcoholic beverages for 24 hours. Do not smoke tobacco products for 24 hours. Eat light foods (Jell-O, soups, etc....) and drink plenty of fluids (water, Sprite, etc...) up to 8glasses per day, as you can tolerate. Get plenty of rest. Cough and breathe deeply. This helps to clear and expand your lungs and can prevent pneumonia and increase your oxygenation. This needs to be done often, for the first 24-48 hours after surgery. Do mild physical activity. Walking or moving legs will help increase your circulation. You surgeon will help you decide what type of exercises or activity level is appropriate. Limit your activities for 24 hours. Do not engage in heavy work until your surgeon gives you permission. DO NOT lift anything heavier than 10 pounds. You may go up & down stairs and do any activity that can be done comfortably. Actively manage your pain. Staying on a schedule with pain medication is often a good idea. This prevents you from experiencing unbearable pain. It is best to take over the counter pain medication such as Motrin and Tylenol, alternating them ifneeded to prolong pain control and diminish side effects. Resume previous medication, unless instructed otherwise. Lack of appetite, fatigue, aches, pain, constipation are to be expected in days directly after yoursurgery. Incision Care After your surgery you may have an incision covered with a bandage or dressing. Your incision may be slightly red or swollen initially, this is normal. Wash hands before and after incision care. Keep incision clean and dry. Your stitches will be removed at a follow-up appointment, if applicable. If your bandages become soaked with bright red blood, place another dressing pad over your bandages. (DO NOT remove original bandage.) Call your surgeon for further instructions. A small amount of bright red blood is to be expected. You may shower starting two days after surgery. When removing dressing, it is best to do it when showering. Warm water and mild soapy will help adhesive break down and make removal easy. Once dressing is removed, gently wash incision with mild soap and water. Pat incision dry. If you would rather keep incision covered, ensure the incision is dry before replacing dressing. Please change dressing daily during shower. Do not take baths for one week. Report any changes in the wound such as redness, bleeding and/or swelling to your physician Reasons to call your provider or surgeon Excessive swelling of, or around the wound area. Redness or pus-like drainage. Temperature of 100 degrees (F) or above. Excessive pain after taking pain medication one hour prior. If unable to urinate 6-8 hours after surgery. If bleeding at surgery site continues after 5-10 minutes of pressure. Your incision opens. Apply light pressure with a clean cloth if this occurs. You are having side effects from your medications such as nausea, rash, or itching. Lower extremity weakness or extended numbness (greater than 16 hours) Excessive nausea or vomiting. Shortness of breath, pain or tenderness in your calf, or chest pain are all reasons to seek emergency care or call 911. Restrictions Limit activity for 2 weeks. Avoid heavy lifting or vigorous exercise Avoid bending at the waist. If you must bend, bend at the knees. Avoid excessive twisting Avoid scrubbing floors, vacuuming, heavy housework, etc. No sexual relations for 2 weeks When moving to and from the bed/ couch/ seat etc, avoid sliding across the surface. Perform your 24 hour voiding diary as instructed and bring to your follow-up visit. Try not to alter your normal routine (diet, fluid intake, caffeine, alcohol, and medications) during your trial period. Stimulation Notes The stimulation should feel similar to your test stimulation. Although the lead is secured in place, it may move slightly as you change positions, causing stimulation to become more/ less intense, and/or change locations. You may need to adjust amplitude accordingly. DO NOT MAKE MORE THAN ONE INCREASE IN AMPLITUDE EVERY FEW DAYS. Stimulation should be on 24 hours a day. If stimulation becomes painful, turn down the stimulation amplitude or turn off the stimulator and call the office. If you have questions regarding the device and/or settings, the device rep's contact information isinside your device box. If you are having any outpatient testing or imaging, be sure to inform the tech that you have an implanted device. Bring a FULLY CHARGED ui programmer to all urology office visits. Thank you! We sincerely appreciate the opportunity to care for you. We are committed to giving you our best and welcome back your feedback. Please contact the [facility] at [phone], extension [phone], with any comments or concerns you may have. Prevention of Venous Thromboembolism A venous thromboembolism is a blood clot that forms in a vein. A blood clot in a deep vein is called a deep venous thrombosis (DVT). It most often occurs in the legs. Blood clots in these veins need to be treated, because they can get bigger, break loose and travel through the bloodstream to the heart and lungs. A blood clot in the lungs is called a pulmonary embolism (PE). A PE is a sudden blockage of an artery in the lung. In many cases the clots are small and may damage the lungs but if the clot is large and stops blood flow to the lung it could be deadly. Blood clots can form from not moving or poor blood circulation. When blood is not circulated well and blood pools in a vein, the clotting factors in the blood can form a blood clot. Conditions that may increase the risk of a blood clot are: recent orthopedic or general surgery (hip, knee or abdominal surgery). sitting or lying still for over one hour during travel or are confined to a bed or chair (during long distance travel, recovery from an illness/operation, paralysis). have had a stroke, heart attack, heart failure or are paralyzed. have a broken bone such as a leg, hip or pelvis. have had cancer or are being treated for cancer. have a personal or family history of blood clots. take hormones, especially for control or hormone replacement therapy. are overweight. are over 60 years old. smoke. have an implanted vascular access device. have blood circulation problems. Symptoms of a blood clot depend on the location of the clot. Leg or arm may include: swelling of the leg or arm. warmth and redness of the leg or arm. pain in the leg or arm (worse when standing or walking). Lungs may include: difficulty breathing or shortness of breath. chest pain. Pain is often worse with deep breaths. coughing. coughing up blood or blood tinged sputum. rapid heartbeat. dizziness or fainting. A blood clot in the lungs(PE) is a medical emergency. Get help immediately! Prevention exercise regularly. Take a brisk 30 minute walk every day. Staying active and moving around can help prevent blood clots. avoid sitting or lying for long periods of time. Change your position often. women, especially over the age of 35, should consider the risks and benefits of taking estrogen medications. Including control and hormone replacement. Do not smoke. Especially if you are taking estrogen medications. If you smoke, talk to your caregiver on how to quit. eat plenty of fruits and vegetables. Ask your caregiver if there are foods you should avoid. maintain a heathy weight. wear loose-fitting clothing. Avoid constrictive or tight clothing around you waist and legs. avoid crossing your legs. Try not to injure your legs. do not use pillows under your legs unless instructed by your caregiver. take all medications prescribed to you. wear special stockings if they are prescribed to you and wear them correctly. Travel after surgery There is a risk of clotting for up to 4-6 weeks after surgery. Flying or traveling long distances can increase you risk of a clot. As a result, those who travel may need additional preventative measures. Contact your doctor. Drink only non-alcoholic beverages during your travel. Alcohol can dehydrate you and increase your risk of forming clots. General Travel Long distance travel can increase the risk of a blood clot. To prevent blood clots when traveling: exercise your legs every hour by walking or pumping your muscles every hour. Flexing and extending your toes while tightening your calves while seated are good exercises to do every hour during long trips. If you can, stand and stretch and walk as much as possible. Stay well hydrated. Drink water regularly. Contact you doctor if you plan to travel before or after surgery. documented in this encounterEast Ohio Regional Hospital Work Phone: 1(532) 886-543608-13-2025 History of Present illness Narrative* Jr. Keith Gabriel, - 01/03/2025 2:15 PM EDT Images from the original note were not included. HISTORY OF PRESENT ILLNESS: EST PT Ashlee Banerjee is an 74 y.o. @ female. (L) HIP (EST PT) - YEARLY RECHECK (L) JESUS (NICKEL FREE) 12/23/23 (~1 YR, 2 WKS) *NEW HOSPITAL ADMISSIONS (X2) ~ 09/28/24 - INTERNAL BLEEDING S/P LIVER BX XRAY TODAY, 01/03/25 IN [facility] 02/02/24 IN [facility] NO MDP / PREDNISONE HX ATB FOR [...] YRS, 9 MONTHS) XRAY TODAY, 01/03/25 IN [facility] XRAY 03/15/23 IN [facility] / [facility] NO BONE SCAN NO MDP / PREDNISONE [...] mg, Oral, 2 times daily with meals [place] 3-6-9 Fatty Acids (TRIPLE OMEGA COMPLEX PO) [...] Use: Not At Risk (09/30/2024) Received from [employer] AUDIT-C Frequency of Alcohol Consumption: Never Average Number of Drinks: Patient does not drink Frequency of Binge Drinking: Never IMAGING: XR hip left 2 or 3 views Imaging Result: AP and lateral of left hip showed acceptable position and alignment of left total hip arthroplasty.There was no evidence of loosening of the acetabular cup or femoral stem. Femoral head was well centered in the acetabular liner without evidence of asymmetric or accelerated wear. There was no grossevidence of fracture and/or dislocation. Impression: Unremarkable left [...] or asymmetric wear to the patellar button ortibial tray. There was no evidence of fracture and/or dislocation. Impression: Unremarkable right total knee arthroplasty. XR knee 1 or 2 views left Imaging Result: AP and lateral of left knee showed surgical position and alignment of prosthetic components withoutevidence of loosening or wear to the femoral, [...] bilateral knee replacements and her left hip repla cement. Questions answered in laymen terms at the bedside. The diagnosis, home exercise plan and any ongoing restrictions/ recommendations reviewed. If unable to be reached in office, I recommend evaluation at nearest Emergency Room if any symptoms worsened or new symptoms develop for requiring urgent evaluation. documented in this encounterHedrick Medical CenterGjvvlsdzbm04-23-1719 Miscellaneous Notes* Telephone Encounter - Anjelica Holland MD - 10/11/2024 2:41 PM EDT I spoke to the patient's PCP Dr [...] Eller will reach out. documented in [facility] encounterWilson [facility] Telephone encounter Note* Telephone Encounter - Anjelica Holland MD - 10/11/2024 2:41 PM EDT I spoke to the patient's PCP Dr [...] she or Dr. Eller will reach out. [employer] Work Phone: 1(706) 281-326105-13-2025 Hospital course Narrative* Juice Melendez MD - 10/03/2024 12:21 PM EDT Inpatient Discharge Summary BRIEF OVERVIEW Admitting Provider: [...] to above, s/p 2 [facility] with underlying iron deficiency anemia. Hypovolemic shock in settings of acute blood loss anemia. Gallbladder distension with cholelithiasis and sludge CBD 1.3 cm on CTA abdomen and pelvis at [facility] 09/28/2024. Transient abdominal pain most likely related [...] [facility], GAVE, DM2, HTN, GERD presented to [place] ER with abdominal pain and dark stools was transferred to [facility] for GI evaluation, initially admitted to ICU in view of hypotension once stabilized was transferred to [facility] as primary on 10/02/2024. 1. Acute upper [...] [facility] with underlyingiron deficiency anemia. Monitor H&H, transfuse if hemoglobin [...] cm on CTA abdomen and pelvis at [facility]. Appreciate hepatobiliary follow-up with plans for [...] a recent colonoscopy. - Follow-up with primary stock worker and deliverer at [place] for further management of underlying liver disease. [...] This note was completed using a voice bookmobile driver system. Every effort was made to ensure accuracy. However, inadvertent computerized bookmobile driver errors may be present. documented in this encounterMount St. Mary HospitalUniversity of [facility] [id number] History of Present illness Narrative* Yajaira Nickerson APRN-WET ROLLER - 10/03/2024 11:10 AM EDT [facility]Hepatology Progress Note IDENTIFYING DATA PATIENT: Ashlee Banerjee ADMIT DATE: 09/29/2024 TIME OF EVALUATION: 10/03/2024 11:11 AM HOSPITAL STAY: LOS: 4 days REASON FOR HOSPITALIZATION: SUBJECTIVE/INTERVAL HISTORY Ashlee Banerjee's events from the last 12-24 hours were reviewed. She has no further abdominal pain. Had a dark brown stool today. Tells me plan is for discharge andtawanna is going to follow-up with her stock worker and deliverer in [place], Dr. Patino.. OBJECTIVE MEDICATIONS SCHEDULED: ferrous sulfate, [...] a recent colonoscopy. - Follow-up with primary stock worker and deliverer at [place] for further management of underlying liver disease. [...] hours. COMPARISON: CT angiogram of the chest, abdomen,pelvis done September 28, 2024 HISTORY: ORDERING SYSTEM PROVIDED HISTORY: sludge TECHNOLOGIST PROVIDED HISTORY: sludge Reason for Exam: cholelithiasis FINDINGS: Following administration of radiotracer prompt uptake of radiotracer is seen in the liver with no persistence of cardiac blood pool activity. Thebiliary tree is visualized by 30 minutes. Gallbladder activity is not demonstrated up to 2 hours ofimaging. Bowel activity is demonstrated at 30 minutes. Progressive radiotracer excretion is demonstrated from the liver to the small-bowel. Good aboral progression of radiotracer from the proximal todistal small bowel is seen. No enterogastric bile [...] 99 today PLAN: Follow up with her stock worker and deliverer in [place] and her toxics program officer at [facility] Continue ursodiol Noted plans for discharge today Discussed w/ attending physician [place] [address] PH: [phone] ALEXANDER Sosa 10/03/24 1421 * Juice Melendez MD - 10/02/2024 8:00 AM EDT Principal Problem: GI bleed Chief Complaint: 1 bowel movement with dark stools yesterday ASSESSMENT AND PLAN: Patient is a 73-year-old female with known Hx/o primary biliary cirrhosis s/p liver biopsy 09/20/24 at [facility], GAVE, DM2, HTN, GERD presented to [place] ER with abdominal pain and dark stools was transferred to [facility] for GI evaluation, initially admitted to ICU in view of hypotension once stabilized was transferred to [facility] as primary on 10/02/2024. 1. Acute upper [...] [facility] Appreciate hepatobiliary follow-up with plans [...] midnight Question: Diet Type: Answer: NPO 10/01/24 2123 SUBJECTIVE: Patient awake oriented x3 does not [...] This note was completed using a voice bookmobile driver system. Every effort was made to ensure accuracy. However, inadvertent computerized bookmobile driver errors may be present. * Pily Zaman MD - 10/01/2024 1:05 PM EDT HEPATOBILIARY, PANCREAS & ENDOCRINE SURGERY PROGRESS NOTE [...] our system. GI bleed was likely from s tomach, as patient endorses having an EGD early [...] other consulting teams Will follow while inpatient. * Anne-Marie Suggs MD - 10/01/2024 11:55 AM EDT [facility] Gastroenterology/Hepatology Progress Note IDENTIFYING DATA PATIENT: [...] 2 tablets (1,000 mg total) by mouth every6 (six) hours as needed. atorvastatin (LIPITOR) 20 mg tablet Take 1 tablet (20 mg total) by mouth in the morning. calcium carbonate (OS-TIA) 600 mg elemental (1,500 mg) tablet Take 1 tablet (600 mg total) by mouthdaily with breakfast. carboxymethylcellulose sodium (THERATEARS OPHT) Administer [...] total) by mouth in the morning and atbedtime. clindamycin (CLEOCIN) 150 mg capsule Take 1 [...] biopsy done on September 20, 2024 at [place] (pathology showed changes compatible with PVC and stage 3-4 fibrosis), history of GAVE on EGD that was performed on the 1st week of August (this is per patient history, this was done at [facility] and no records are available. Patient presented [...] Anne-Marie Suggs MD [facility] [address] [place] [address] [address] [place] [address] PH: [phone] * Lisbet Brush MD - 10/01/2024 6:13 AM EDT Images from the original note were not included. [facility] Progress Note Name: Ashlee Banerjee Age: 73 y.o. Date: 10/01/24 Length of Stay 2 day(s) ASSESSMENT Acute upper GI bleed, melena Acute blood loss anemia secondary to above, s/p 2 units pRBC at [facility] Primary biliary cirrhosis Recent liver biopsy 09/20/2024 at [facility] History of GAVE Hypovolemic shock, resolved - off vasopressors Right-sided abdominal pain Gallbladder distension with cholelithiasis and sludge CBD 1.3 cm on CTA abdomen and pelvis at [facility] 09/28/2024 Hepatic cirrhosis with postal hypertension on [...] 3 days Lab Units 10/01/24 0309 09/30/24 0909/29/242031 BUN mg/dL 37* 50* 48* CREATININE mg/dL [...] from last 3 days Lab Units 10/01/24 03009/30/24205409/30/24 1713 09/30/24 0949 09/30/2432209/29/242031 WBC x10E9/L 3.5* -- -- 3.5* -- [...] from last 7 days Lab Units 10/01/24 03009/30/2449 09/29/24203109/29/24 194 BEDSIDE GLUCOSE mg/dL -- -- -- 143* GLUCOSE mg/dL 125* 203* 119* -- Lines/Drains PICC Triple Lumen 09/29/24 Left (Active) Precautions Standard precautions;Hand hygiene;Gloves 10/01/24299 Lumen 1 White 10/01/24299 Lumen 1 Status Flushed;Blood return noted;Saline locked;Alcohol sponge cap changed 10/01/24299 Lumen 2 Blue 10/01/24299 Lumen 2 Status Flushed;Blood return noted;Saline locked;Alcohol sponge cap changed 10/01/24299 Lumen 3 Parnell 10/01/24299 Lumen 3 Status Infusing;Alcohol sponge cap maintained;Connections checked/tightened 10/01/24299 Site Assessment Clean;Dry;Intact 05/11/25 0300 Dressing Type Transparent with CHG gel;Occlusive 10/01/24 0300 Dressing Status Clean;Dry;Intact 10/01/24 0300 Dressing Intervention Initial dressing 09/29/241944 Line Necessity Peripherally incompatible solution 10/01/24299 Line Necessity Reviewed With CC 09/30/242044 Patient Tolerance of Line Care Tolerated well 10/01/24299 Dressing Change Due (Non-Gauze) 10/06/24 09/29/24 194 [...] Pulmonary and Sleep Pulmonary / Critical Care * Lisbet Brush MD - 09/30/2024 6:08 AM EDT Images from the original note were not included. [facility] Progress Note Name: Ashlee Banerjee Age: 73 y.o. Date: 09/30/24 Length of Stay 1 day(s) ASSESSMENT Acute upper GI bleed, melena Acute blood loss anemia secondary to above, s/p 2 units pRBC at [facility] Primary biliary cirrhosis Recent liver biopsy 09/20/2024 at [facility] History of GAVE Hypovolemic shock, resolved - off vasopressors Right-sided abdominal pain Gallbladder distension with cholelithiasis and sludge CBD 1.3 cm on CTA abdomen and pelvis at [facility] 09/28/2024 Hepatic cirrhosis with postal hypertension on [...] Results from last 3 days Lab Units 09/30/243 09/29/242031 WBC x10E9/L -- 4.0 HEMOGLOBIN g/dL [...] Left (Active) Precautions Standard precautions;Hand hygiene;Gloves 09/30/24 030 Lumen 1 Parnell 09/30/24 0300 Lumen 1 Status Blood return noted;Alcohol sponge cap maintained 09/30/24 030 Lumen 2 Blue 09/30/24 030 Lumen 2 Status Blood return noted;Alcohol sponge cap maintained 09/30/24 0300 Lumen 3 White 09/30/24 030 Lumen 3 Status Blood return noted;Alcohol sponge cap maintained 09/30/24 0300 Site Assessment Clean;Dry;Intact 09/30/24299 Dressing Type Transparent with CHG gel;Occlusive 09/30/24299 Dressing Status Clean;Dry;Intact 09/30/24299 Dressing Intervention Initial dressing 09/29/241944 Line Necessity Peripherally incompatible solution 09/30/24299 Line Necessity Reviewed With CC 09/30/24299 Patient Tolerance of Line Care Tolerated well 09/30/24299 Dressing Change Due (Non-Gauze) 10/06/24 09/29/24 194 Tammy Sung PA-C 09/30/24 1018 Attestation signed by 2:36 PM PULMONARY/CRITICAL CARE ATTENDING ATTESTATION I, LISBET BRUSH MD, personally performed the face to face diagnostic evaluation on this patient. I have reviewed the GRICELDA's History, Exam, and MDM and agree with the assessment and plan as written. Patient evaluated at the bedside. No further signs of bleeding. She remains hemodynamically stable.Tentative plans for EGD Wednesday. Patient to transfer out of ICU Lisbet Brush MD [facility] Pulmonary and Sleep Pulmonary / [facility]* Discharge Planning Note - Ginny Moreland RN - 10/03/2024 9:08 AM EDT DISCHARGE PLANNING NOTE 10/03/24 0908 Enhanced DTR [...] - Ginny Moreland RN 10/03/24 9:[address] [facility]05-13-2025 Miscellaneous Notes* Discharge Planning Note - Ginny Moreland RN - 10/03/2024 9:08 AM EDT DISCHARGE PLANNING NOTE 10/03/24 0908 Enhanced DTR [...] - Ginny Moreland RN 10/03/24 9:16 AM * Discharge Planning Note - Nadya Pickens RN - 10/03/2024 8:23 AM EDT Initial Assessment Initial Assessment Flowsheet Row Most [...] we didn't have money to get more.Never True Caregiver/Family Member Caregiver/Support System Limitations Patient/Caregiver [...] - Nadya Pickens RN 10/03/24 8:24 AM * Plan of Care - Daron Brush RN - 10/03/2024 5:17 AM EDT Problem: Pain Goal: Patient goal is pain score less than 4, able to rest, and participant in treatment plan as appropriate Description: INTERVENTIONS: 1. Encourage patient or legal claims customer service representative to report early pain and [...] per policy 9. Teach patient or legal claims customer service representative interventions for comforting Outcome: Progressing [...] at the bedside 7. Instruct patient/ patient claims customer service representative about use of safety devices 8. Include patient/ patient claims customer service representative in decisions related to safety [...] hygiene technique. 7. Identify and instruct patient/patient claims customer service representative in use of appropriate isolation precautionsfor identified infection/symptoms. 8. Provide and discuss with patient/patient claims customer service representative on educational MDRO sheet. 9. Encourage and monitor nutritional status daily and consult chief radiologic technologist if indicated. 10. Implement neutropenic guidelines as [...] Moderate - High Risk Fall Score Description: [place] Fall Score of =/> 25 or indicated by [facility] Assessment Goal: Patient should be free from fall Description: Interventions: 1. [place] to environment 2. Hourly rounds addressing the [...] non-skid footwear 11. Teach patient and patient claims customer service representative to maintain environment for safety [...] (cane, walker) within reach 19. Request patient claims customer service representative bring adaptive equipment/mobility aids from home or obtain and provide as needed 20. Consult pharmacy regarding effects of med's affecting mobility, cognition, and alternatives 21. Obtain physician order for PT if risk factors associated with mobility are present 22. Obtain physician order for OT as appropriate 23. Utilize diversional activities 24. Educate patient and patient claims customer service representative how to maintain a safe environment during visitationtimes (notify nurse prior to leaving bedside) 25. Consider appropriateness of medical or non-spanish medical interpreter 26. Set up voiding schedule as appropriate (every 2 hours) Outcome: Progressing Note: Evaluation of progress towards goal: Pt. Remained free of falls this shift. * Discharge instr - Endo Pulm - Christina Noland, - 10/02/2024 1:24 PM EDT Patient Instructions after an EGD without BiopsyPatient: [...] please call the GI Lab. Nurse Signature Patient/Designated Responsible Libertarian SignatureS. Ludin Noland, 10/02/2024 2:57:29 PMThis report has been signed electronically. * Plan of Care - Sherie Maldonado RN - 10/02/2024 6:46 AM EDT Problem: Pain Goal: Patient goal is pain score less than 4, able to rest, and participant in treatment plan as appropriate Description: INTERVENTIONS: 1. Encourage patient or legal claims customer service representative to report early pain and [...] per policy 9. Teach patient or legal claims customer service representative interventions for comforting Outcome: Progressing [...] at the bedside 7. Instruct patient/ patient claims customer service representative about use of safety devices 8. Include patient/ patient claims customer service representative in decisions related to safety Outcome: Progressing Note: Evaluation of progress towards goal: Patient safety maintained, call light in reach, area clear of hazards, hourly rounding continued, bed locked in lowest position, alarm on as applicable, nonskid socks on, safety educated completed with patient/family, [...] hygiene technique. 7. Identify and instruct patient/patient claims customer service representative in use of appropriate isolation precautionsfor identified infection/symptoms. 8. Provide and discuss with patient/patient claims customer service representative on educational MDRO sheet. 9. Encourage and monitor nutritional status daily and consult chief radiologic technologist if indicated. 10. Implement neutropenic guidelines as [...] supplement as ordered 13. Collaborate with clinical chief radiologic technologist 14. Include patient/ patient's claims customer service representative in decisions related to nutrition Outcome: Progressing Note: Evaluation of progress towards goal: Patient is turned every 2 hours and as needed. Skin is clean and dry. Will continue to monitor. Problem: Moderate - High Risk Fall Score Description: [place] Fall Score of =/> 25 or indicated by [facility] Assessment Goal: Patient should be free from fall Description: Interventions: 1. [place] to environment 2. Hourly rounds addressing the [...] non-skid footwear 11. Teach patient and patient claims customer service representative to maintain environment for safety [...] (cane, walker) within reach 19. Request patient claims customer service representative bring adaptive equipment/mobility aids from home or obtain and provide as needed 20. Consult pharmacy regarding effects of med's affecting mobility, cognition, and alternatives 21. Obtain physician order for PT if risk factors associated with mobility are present 22. Obtain physician order for OT as appropriate 23. Utilize diversional activities 24. Educate patient and patient claims customer service representative how to maintain a safe environment during visitationtimes (notify nurse prior to leaving bedside) 25. Consider appropriateness of medical or non-spanish medical interpreter 26. Set up voiding schedule as appropriate (every 2 hours) Outcome: Progressing Note: Evaluation of progress towards goal: Patient is oriented to their environment, area is free from hazards, and hourly rounding is done. The bed alarm is on, bed is in lowest position, and call light is in reach. Fall risk armband is on patient. * Plan of Care - Teresa Rojo RN - 10/01/2024 8:05 PM EDT Problem: Pain Goal: Patient goal is pain score less than 4, able to rest, and participant in treatment plan as appropriate Description: INTERVENTIONS: 1. Encourage patient or legal claims customer service representative to report early pain and [...] per policy 9. Teach patient or legal claims customer service representative interventions for comforting Outcome: Progressing [...] at the bedside 7. Instruct patient/ patient claims customer service representative about use of safety devices 8. Include patient/ patient claims customer service representative in decisions related to safety [...] hygiene technique. 7. Identify and instruct patient/patient claims customer service representative in use of appropriate isolation precautionsfor identified infection/symptoms. 8. Provide and discuss with patient/patient claims customer service representative on educational MDRO sheet. 9. Encourage and monitor nutritional status daily and consult chief radiologic technologist if indicated. 10. Implement neutropenic guidelines as needed. Outcome: Progressing Note: Evaluation of progress towards goal: pt will show no signs or symptoms of infection prior to discharge. Any unneccessary invasive lines and tubes will be removed if not medically necessary to decrease infection risk. Problem: Knowledge Deficit Goal: Patient/patient claims customer service representative demonstrates understanding of disease process, treatment plan,medications, and discharge instructions Description: INTERVENTIONS 1. Complete [...] family members any discharge needs such as transportationand medication needs. Pt will discuss any questions [...] goal: Pt's rectal bleeding has improved/subsided. H+H trendingupwards and remain stable. Pt having regular bowel movements. Problem: Hematologic - Adult Goal: Maintains hematologic stability Description: INTERVENTIONS 1. Assess for signs and symptoms of bleeding or hemorrhage 2. Monitor labs as ordered 3. Administer supportive blood products/factors as ordered and appropriate 4. Sizerock and maintain bleeding precautions Outcome: Progressing Note: Evaluation of progress towards goal: Pt's H+H being monitored at least Q6H, remains stable atthis time, no evidence of bleeding noted. * Plan of Care - Chana Beauchamp RN - 10/01/2024 3:18 PM EDT Problem: Pain Goal: Patient goal is pain score less than 4, able to rest, and participant in treatment plan as appropriate Description: INTERVENTIONS: 1. Encourage patient or legal claims customer service representative to report early pain and [...] per policy 9. Teach patient or legal claims customer service representative interventions for comforting Outcome: Progressing [...] at the bedside 7. Instruct patient/ patient claims customer service representative about use of safety devices 8. Include patient/ patient claims customer service representative in decisions related to safety [...] hygiene technique. 7. Identify and instruct patient/patient claims customer service representative in use of appropriate isolation precautionsfor identified infection/symptoms. 8. Provide and discuss with patient/patient claims customer service representative on educational MDRO sheet. 9. Encourage and monitor nutritional status daily and consult chief radiologic technologist if indicated. 10. Implement neutropenic guidelines as needed. Outcome: Progressing Note: Evaluation of progress towards goal: patient temperature remains within limits, antibiotics given when indicated, hygiene maintained. Problem: Knowledge Deficit Goal: Patient/patient claims customer service representative demonstrates understanding of disease process, treatment plan,medications, and discharge instructions Description: INTERVENTIONS 1. Complete [...] currently in the MICU for critical care. * Situational Awareness - Tammy Snug PA-C - 10/01/2024 12:15 PM EDT [facility] TRANSFER NOTE Name: Ashlee Banerjee Date: 10/01/2024 Admit Date: 09/29/2024 Patient to be transferred out of the ICU. Sign-out has been called to Dr. Hudson at 12:15 PM. Critical Care will sign off at time of transfer out of ICU or 10/02/2024 at 0700 if patient does not have abed and [facility] will assume care at that time. Please contact via patient touch if there any questions. Thank you. BEATRICE NIETO PA-C 10/01/24 1215 * Plan of Care - Christina Adams RN - 09/30/2024 10:00 PM EDT Problem: Pain Goal: Patient goal is pain score less than 4, able to rest, and participant in treatment plan as appropriate Description: INTERVENTIONS: 1. Encourage patient or legal claims customer service representative to report early pain and [...] per policy 9. Teach patient or legal claims customer service representative interventions for comforting Outcome: Progressing [...] at the bedside 7. Instruct patient/ patient claims customer service representative about use of safety devices 8. Include patient/ patient claims customer service representative in decisions related to safety [...] hygiene technique. 7. Identify and instruct patient/patient claims customer service representative in use of appropriate isolation precautionsfor identified infection/symptoms. 8. Provide and discuss with patient/patient claims customer service representative on educational MDRO sheet. 9. Encourage and monitor nutritional status daily and consult chief radiologic technologist if indicated. 10. Implement neutropenic guidelines as needed. Outcome: Progressing Note: Evaluation of progress towards goal: No new s/s of infection. Problem: Knowledge Deficit Goal: Patient/patient claims customer service representative demonstrates understanding of disease process, treatment plan,medications, and discharge instructions Description: INTERVENTIONS 1. Complete [...] supplement as ordered 13. Collaborate with clinical chief radiologic technologist 14. Include patient/ patient's claims customer service representative in decisions related to nutrition [...] Score of =/> 25 or indicated by [facility] Assessment Goal: Patient should be free from fall Description: Interventions: 1. [place] to environment 2. Hourly rounds addressing the [...] non-skid footwear 11. Teach patient and patient claims customer service representative to maintain environment for safety [...] (cane, walker) within reach 19. Request patient claims customer service representative bring adaptive equipment/mobility aids from home or obtain and provide as needed 20. Consult pharmacy regarding effects of med's affecting mobility, cognition, and alternatives 21. Obtain physician order for PT if risk factors associated with mobility are present 22. Obtain physician order for OT as appropriate 23. Utilize diversional activities 24. Educate patient and patient claims customer service representative how to maintain a safe environment during visitationtimes (notify nurse prior to leaving bedside) 25. Consider appropriateness of medical or non-spanish medical interpreter 26. Set up voiding schedule as appropriate [...] appropriate 6. Collaborate with case management/social work therapist for discharge needs Outcome: Progressing Note: Evaluation [...] sudden weight gain, distended neck veins in olderchildren, enlarged liver and spleen) 1. Monitor intake and output 2. Monitor pt's weight 1. Monitor labs and assess patient for signs and symptoms of electrolyte imbalances 2. Administer electrolyte replacement as ordered 3. Monitor response to electrolyte replacements, including repeat lab results as appropriate 4. Fluid restriction or hydration as ordered 5. Instruct patient/ legal claims customer service representative on nutrition/diet; fluid/hydration restrictions as appropriate Outcome: Progressing Note: Evaluation of progress towards goal: Monitor e-lytes and replace per protocol Problem: Hematologic - Adult Goal: Maintains hematologic stability Description: INTERVENTIONS 1. Assess for signs and symptoms of bleeding or hemorrhage 2. Monitor labs as ordered 3. Administer supportive blood products/factors as ordered and appropriate 4. Sizerock and maintain bleeding precautions Outcome: Progressing Note: Evaluation of progress towards goal: No s/s of bleeding, q8h H&H checks. Hgb remains stable. * Situational Awareness - Lisbet Brush MD - 09/30/2024 3:19 PM EDT [facility] SIGN-OFF NOTE Name: Ashlee Banerjee Date: 09/30/2024 Admit Date: 09/29/2024 Patient to be transferred out of the ICU. Sign-out has been called to Dr. Jackson at 3:19 PM. Critical Care will sign off at time of transfer out of ICU. Please call Critical Care GRICELDA at if there any questions. Thank you. LISBET BRUSH MD * Plan of Care - Joe Lao RN - 09/30/2024 10:54 AM EDT Problem: Pain Goal: Patient goal is pain score less than 4, able to rest, and participant in treatment plan as appropriate Description: INTERVENTIONS: 1. Encourage patient or legal claims customer service representative to report early pain and [...] per policy 9. Teach patient or legal claims customer service representative interventions for comforting 09/30/2024 1052 by AURORA Diaz Outcome: Progressing Note: Evaluation of progress towards goal: Patient denies pain at this time; repositioned for comfort; PRN pain medication if needed. 09/30/2024 1035 by AURORA Diaz Outcome: Progressing [...] at the bedside 7. Instruct patient/ patient claims customer service representative about use of safety devices 8. Include patient/ patient claims customer service representative in decisions related to safety 09/30/2024 1052 by AURORA Diaz Outcome: Progressing [...] hygiene technique. 7. Identify and instruct patient/patient claims customer service representative in use of appropriate isolation precautionsfor identified infection/symptoms. 8. Provide and discuss with patient/patient claims customer service representative on educational MDRO sheet. 9. Encourage and monitor nutritional status daily and consult chief radiologic technologist if indicated. 10. Implement neutropenic guidelines as needed. 09/30/2024 105 by AURORA Diaz Outcome: Progressing Note: Evaluation of progress towards goal: No active infections 09/30/20241034 by AURORA Diaz Outcome: Progressing Note: Evaluation of progress towards goal: Patient afebrile; vitals stable; antibiotic therapy continues Problem: Knowledge Deficit Goal: Patient/patient claims customer service representative demonstrates understanding of disease process, treatment plan,medications, and discharge instructions Description: INTERVENTIONS 1. Complete [...] progress towards goal: pt has d/c planning 09/30/2024 1035 by AURORA Diaz Outcome: Progressing [...] initiate plans and interventions as needed 09/30/2024 105 by AURORA Diaz Outcome: Progressing [...] supplement as ordered 13. Collaborate with clinical chief radiologic technologist 14. Include patient/ patient's claims customer service representative in decisions related to nutrition [...] initiate plans and interventions as needed 09/30/2024 105 by AURORA Diaz Outcome: Progressing Note: Evaluation of progress towards goal: No new skin breakdown noted; turning patient every 2 hours per protocol 09/30/2024 103 by AURORA Diaz Outcome: Progressing Note: Evaluation of progress towards goal: No new skin breakdown noted; turning patient every 2 hours per protocol Problem: Moderate - High Risk Fall Score Description: [place] Fall Score of =/> 25 or indicated by [facility] Assessment Goal: Patient should be free from fall Description: Interventions: 1. [place] to environment 2. Hourly rounds addressing the [...] non-skid footwear 11. Teach patient and patient claims customer service representative to maintain environment for safety [...] (cane, walker) within reach 19. Request patient claims customer service representative bring adaptive equipment/mobility aids from home or obtain and provide as needed 20. Consult pharmacy regarding effects of med's affecting mobility, cognition, and alternatives 21. Obtain physician order for PT if risk factors associated with mobility are present 22. Obtain physician order for OT as appropriate 23. Utilize diversional activities 24. Educate patient and patient claims customer service representative how to maintain a safe environment during visitationtimes (notify nurse prior to leaving bedside) 25. Consider appropriateness of medical or non-spanish medical interpreter 26. Set up voiding schedule as appropriate [...] appropriate 6. Collaborate with case management/social work therapist for discharge needs 09/30/2024 1052 by AURORA Diaz Outcome: Progressing Note: Evaluation of progress towards goal: 09/30/2024 1035 by AURORA Diaz Outcome: Progressing Note: Evaluation of progress towards goal: * Plan of Care - Reba Post RN - 09/30/2024 5:46 AM EDT Problem: Pain Goal: Patient goal is pain score less than 4, able to rest, and participant in treatment plan as appropriate Description: INTERVENTIONS: 1. Encourage patient or legal claims customer service representative to report early pain and [...] per policy 9. Teach patient or legal claims customer service representative interventions for comforting 09/30/2024544 by [...] at the bedside 7. Instruct patient/ patient claims customer service representative about use of safety devices 8. Include patient/ patient claims customer service representative in decisions related to safety [...] hygiene technique. 7. Identify and instruct patient/patient claims customer service representative in use of appropriate isolation precautionsfor identified infection/symptoms. 8. Provide and discuss with patient/patient claims customer service representative on educational MDRO sheet. 9. Encourage and monitor nutritional status daily and consult chief radiologic technologist if indicated. 10. Implement neutropenic guidelines as needed. 09/30/2024 9145 by AURORA Britton Outcome: Progressing Note: Evaluation of progress towards goal: Infection safety policies applied to patient's care while monitoring s/s, labs, and vitals for any indications of infection. 09/30/2024 4216 by AURORA Britton Outcome: Progressing Note: Evaluation of progress towards goal: Problem: Knowledge Deficit Goal: Patient/patient claims customer service representative demonstrates understanding of disease process, treatment plan,medications, and discharge instructions Description: INTERVENTIONS 1. Complete learning assessment and assess knowledge base 2. Provide teaching at level of understanding 3. Provide teaching via preferred learning method(s) Outcome: Progressing Note: Evaluation of progress towards goal: continue to provide education to patient and family whenavailable Problem: Discharge Planning Goal: Discharge to post-acute [...] issues at this time [facility] [id number] Progress note* Discharge Planning Note - Nadya Pickens RN - 10/03/2024 8:23 AM EDT Initial Assessment Initial Assessment Flowsheet Row Most [...] we didn't have money to get more.Never True Caregiver/Family Member Caregiver/Support System Limitations Patient/Caregiver [...] - Nadya Pickens RN 10/03/24 8:24 AM [facility] [employer] [id number] Plan of care note* Plan of Care - Daron Brush RN - 10/03/2024 5:17 AM EDT Problem: Pain Goal: Patient goal is pain score less than 4, able to rest, and participant in treatment plan as appropriate Description: INTERVENTIONS: 1. Encourage patient or legal claims customer service representative to report early pain and [...] per policy 9. Teach patient or legal claims customer service representative interventions for comforting Outcome: Progressing [...] at the bedside 7. Instruct patient/ patient claims customer service representative about use of safety devices 8. Include patient/ patient claims customer service representative in decisions related to safety [...] hygiene technique. 7. Identify and instruct patient/patient claims customer service representative in use of appropriate isolation precautionsfor identified infection/symptoms. 8. Provide and discuss with patient/patient claims customer service representative on educational MDRO sheet. 9. Encourage and monitor nutritional status daily and consult chief radiologic technologist if indicated. 10. Implement neutropenic guidelines as [...] Score of =/> 25 or indicated by [facility] Assessment Goal: Patient should be free from fall Description: Interventions: 1. Towanda to environment 2. Hourly rounds addressing the [...] non-skid footwear 11. Teach patient and patient claims customer service representative to maintain environment for safety [...] (cane, walker) within reach 19. Request patient claims customer service representative bring adaptive equipment/mobility aids from home or obtain and provide as needed 20. Consult pharmacy regarding effects of med's affecting mobility, cognition, and alternatives 21. Obtain physician order for PT if risk factors associated with mobility are present 22. Obtain physician order for OT as appropriate 23. Utilize diversional activities 24. Educate patient and patient claims customer service representative how to maintain a safe environment during visitationtimes (notify nurse prior to leaving bedside) 25. Consider appropriateness of medical or non-spanish medical interpreter 26. Set up voiding schedule as appropriate (every 2 hours) Outcome: Progressing Note: Evaluation of progress towards goal: Pt. Remained free of falls this shift. [facility] [id number] [facility] Patient Name: Ashlee Banerjee Procedure Date: 10/02/2024 1:24 PM CSN: [id number] Date of : 1950 Admit Type: Inpatient Age: 73 Room: [place] [address] Gender: Female Note Status: Finalized Attending MD: [...] a recent colonoscopy. - Follow-up with primary stock worker and deliverer at [place] for further management of underlying liver disease. Procedure Code(s): --- Professional --- 80702, Esophagogastroduodenoscopy, flexible, transoral; diagnostic, including collection of specimen(s) by brushing or washing, when performed (separate procedure) Diagnosis Code(s): --- Professional --- K76.6, Portal hypertension K31.89, Other diseases of stomach and duodenum K92.1, Melena (includes Hematochezia) CPT copyright 2022 [employer]. All rights reserved. The codes documented in this report are preliminary and upon patch sander review may be revised to meet current compliance requirements. Thomas Ridley, 10/02/2024 2:57:29 PM This report has been signed electronically. Number of Addenda: 0 Note Initiated On: 10/02/2024 1:24 PMPM [id number] Attending History and physical note* Christina Noland DO - 10/02/2024 2:37 PM EDT HISTORY AND PHYSICAL INTERVAL NOTE: Ashlee Banerjee 1950 [id number] H&P reviewed. The patient was examined and there are no changes to the H&P. Christina Noland DO Source Note - Anne-Marie Suggs MD - 10/01/2024 11:55 AM EDT [facility]Hepatology Progress Note IDENTIFYING [...] 2 tablets (1,000 mg total) by mouth every6 (six) hours as needed. atorvastatin (LIPITOR) 20 mg tablet Take 1 tablet (20 mg total) by mouth in the morning. calcium carbonate (OS-TIA) 600 mg elemental (1,500 mg) tablet Take 1 tablet (600 mg total) by mouthdaily with breakfast. carboxymethylcellulose sodium (THERATEARS OPHT) Administer [...] total) by mouth in the morning and atbedtime. 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 Patient presented [...] proceeding with EGD tomorrow. Anne-Marie Suggs MD [facility] [address] [place] [address] PH: [phone] [facility] [employer] [facility] Work Phone: 1(120) 164-642205-12-2025 History and physical note* Christina Noland DO - 10/02/2024 2:37 PM EDT HISTORY AND PHYSICAL INTERVAL NOTE: Ashlee Banerjee 1950 [id number] H&P reviewed. The patient was examined and there are no changes to the H&P. Christina Noland DO Source Note - Anne-Marie Suggs MD - 10/01/2024 11:55 AM EDT [facility] Gastroenterology/Hepatology Progress Note IDENTIFYING DATA PATIENT: Ashlee [...] 2 tablets (1,000 mg total) by mouth every6 (six) hours as needed. atorvastatin (LIPITOR) 20 mg tablet Take 1 tablet (20 mg total) by mouth in the morning. calcium carbonate (OS-TIA) 600 mg elemental (1,500 mg) tablet Take 1 tablet (600 mg total) by mouthdaily with breakfast. carboxymethylcellulose sodium (THERATEARS OPHT) Administer [...] total) by mouth in the morning and atbedtime. 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 Patient presented [...] proceeding with EGD tomorrow. Anne-Marie Suggs MD [facility] [place] [address] PH: [phone] * Tj Amin, WM-WET ROLLER - 09/29/2024 7:49 PM EDT Images from the original note were [...] stomach'. Patient was a direct admit at [facility] from her doctor's office due to abdominal pain. She states that she has been having intermittent RUQ pain every 2 days or so ever since she had her liver biopsy at [facility]. She also reports that she has noticed dark-colored stools recently. Patient has known history of primary biliary cirrhosis as stated above. She follows with Dr. Patino in [place] as wellas with doctors at [facility]. She has had previous EGD in August the patient states did not show varices. While at [facility], patient was admitted to the ICU due to hypotension and anemia. She was given 2 units of packed red blood cells and started on norepinephrine. CTA did not show active bleeding, however, did note cholelithiasis and sludge. She was transferred to [facility] for GI services. Currently, vital signs are [...] Past Surgical History: Liver biopsy 09/20/2024 at [facility] Allergies: Morphine Nickel Sulfites Leucine Cyclobenzaprine [...] Amin APRN, CNP Acute Care Nurse Practitioner [facility] Please feel free to contact me via Patient Touch. CRITICAL CARE TIME: 40 minutes. Non-contiguous time with attending MD, excluding procedures. This patient, with a critical illness, requires constant monitoring and titration of care by a Critical Care Effervescent Salts Compounder or GRICELDA. Failure to do so may result in further organ system failure, imminent deterioration, or . ALEXANDER Rubio 09/29/242032 Cosigned by Hal Linder MD at 09/30/2024 5:21 AM EDT documented [facility] Note* Discharge instr - Endo Pulm - Christina Noland, - 10/02/2024 1:24 PM EDT Patient Instructions after an EGD without BiopsyPatient: [...] please call the GI Lab. Nurse Signature Patient/Designated Responsible Libertarian SignatureS. Ludin Noland, 10/02/2024 2:57:29 PMThis report has been signed electronically. T [facility]05-12-2025 Plan of care note* Plan of Care - Sherie Maldonado RN - 10/02/2024 6:46 AM EDT Problem: Pain Goal: Patient goal is pain score less than 4, able to rest, and participant in treatment plan as appropriate Description: INTERVENTIONS: 1. Encourage patient or legal claims customer service representative to report early pain and [...] per policy 9. Teach patient or legal claims customer service representative interventions for comforting Outcome: Progressing [...] at the bedside 7. Instruct patient/ patient claims customer service representative about use of safety devices 8. Include patient/ patient claims customer service representative in decisions related to safety Outcome: Progressing Note: Evaluation of progress towards goal: Patient safety maintained, call light in reach, area clear of hazards, hourly rounding continued, bed locked in lowest position, alarm on as applicable, nonskid socks on, safety educated completed with patient/family, [...] hygiene technique. 7. Identify and instruct patient/patient claims customer service representative in use of appropriate isolation precautionsfor identified infection/symptoms. 8. Provide and discuss with patient/patient claims customer service representative on educational MDRO sheet. 9. Encourage and monitor nutritional status daily and consult chief radiologic technologist if indicated. 10. Implement neutropenic guidelines as [...] supplement as ordered 13. Collaborate with clinical chief radiologic technologist 14. Include patient/ patient's claims customer service representative in decisions related to nutrition Outcome: Progressing Note: Evaluation of progress towards goal: Patient is turned every 2 hours and as needed. Skin is clean and dry. Will continue to monitor. Problem: Moderate - High Risk Fall Score Description: Almazan Fall Score of =/> 25 or indicated by [facility] Assessment Goal: Patient should be free from fall Description: Interventions: 1. Towanda to environment 2. Hourly rounds addressing the [...] non-skid footwear 11. Teach patient and patient claims customer service representative to maintain environment for safety [...] (cane, walker) within reach 19. Request patient claims customer service representative bring adaptive equipment/mobility aids from home or obtain and provide as needed 20. Consult pharmacy regarding effects of med's affecting mobility, cognition, and alternatives 21. Obtain physician order for PT if risk factors associated with mobility are present 22. Obtain physician order for OT as appropriate 23. Utilize diversional activities 24. Educate patient and patient claims customer service representative how to maintain a safe environment during visitationtimes (notify nurse prior to leaving bedside) 25. Consider appropriateness of medical or non-spanish medical interpreter 26. Set up voiding schedule as appropriate (every 2 hours) Outcome: Progressing Note: Evaluation of progress towards goal: Patient is oriented to their environment, area is free from hazards, and hourly rounding is done. The bed alarm is on, bed is in lowest position, and call light is in reach. Fall risk armband is on patient. [facility] [id number] Plan of care note* Plan of Care - Teresa Rojo RN - 10/01/2024 8:05 PM EDT Problem: Pain Goal: Patient goal is pain score less than 4, able to rest, and participant in treatment plan as appropriate Description: INTERVENTIONS: 1. Encourage patient or legal claims customer service representative to report early pain and [...] per policy 9. Teach patient or legal claims customer service representative interventions for comforting Outcome: Progressing [...] at the bedside 7. Instruct patient/ patient claims customer service representative about use of safety devices 8. Include patient/ patient claims customer service representative in decisions related to safety [...] hygiene technique. 7. Identify and instruct patient/patient claims customer service representative in use of appropriate isolation precautionsfor identified infection/symptoms. 8. Provide and discuss with patient/patient claims customer service representative on educational MDRO sheet. 9. Encourage and monitor nutritional status daily and consult chief radiologic technologist if indicated. 10. Implement neutropenic guidelines as needed. Outcome: Progressing Note: Evaluation of progress towards goal: pt will show no signs or symptoms of infection prior to discharge. Any unneccessary invasive lines and tubes will be removed if not medically necessary to decrease infection risk. Problem: Knowledge Deficit Goal: Patient/patient claims customer service representative demonstrates understanding of disease process, treatment plan,medications, and discharge instructions Description: INTERVENTIONS 1. Complete [...] family members any discharge needs such as transportationand medication needs. Pt will discuss any questions [...] goal: Pt's rectal bleeding has improved/subsided. H+H trendingupwards and remain stable. Pt having regular bowel movements. Problem: Hematologic - Adult Goal: Maintains hematologic stability Description: INTERVENTIONS 1. Assess for signs and symptoms of bleeding or hemorrhage 2. Monitor labs as ordered 3. Administer supportive blood products/factors as ordered and appropriate 4. Sizerock and maintain bleeding precautions Outcome: Progressing Note: Evaluation of progress towards goal: Pt's H+H being monitored at least Q6H, remains stable atthis time, no evidence of bleeding noted. [facility]05-11-2025 Plan of care note* Plan of Care - Chana Beauchamp RN - 10/01/2024 3:18 PM EDT Problem: Pain Goal: Patient goal is pain score less than 4, able to rest, and participant in treatment plan as appropriate Description: INTERVENTIONS: 1. Encourage patient or legal claims customer service representative to report early pain and [...] per policy 9. Teach patient or legal claims customer service representative interventions for comforting Outcome: Progressing [...] at the bedside 7. Instruct patient/ patient claims customer service representative about use of safety devices 8. Include patient/ patient claims customer service representative in decisions related to safety [...] hygiene technique. 7. Identify and instruct patient/patient claims customer service representative in use of appropriate isolation precautionsfor identified infection/symptoms. 8. Provide and discuss with patient/patient claims customer service representative on educational MDRO sheet. 9. Encourage and monitor nutritional status daily and consult chief radiologic technologist if indicated. 10. Implement neutropenic guidelines as needed. Outcome: Progressing Note: Evaluation of progress towards goal: patient temperature remains within limits, antibiotics given when indicated, hygiene maintained. Problem: Knowledge Deficit Goal: Patient/patient claims customer service representative demonstrates understanding of disease process, treatment plan,medications, and discharge instructions Description: INTERVENTIONS 1. Complete [...] currently in the MICU for critical care. [facility] [id number] Progress note* Situational Awareness - Tammy Sung PA-C - 10/01/2024 12:15 PM EDT [facility] TRANSFER NOTE Name: Ashlee Banerjee Date: 10/01/2024 Admit Date: 09/29/2024 Patient to be transferred out of the ICU. Sign-out has been called to Dr. Hudson at 12:15 PM. Critical Care will sign off at time of transfer out of ICU or 10/02/2024 at 0700 if patient does not have abed and [facility] will assume care at that time. Please contact via patient touch if there any questions. Thank you. BEATRICE NIETO PA-C 10/01/24 1215 [facility] [employer] [facility] Work Phone: [phone]) 318-503805-10-2025 Plan of care note* Plan of Care - Christina Adams RN - 09/30/2024 10:00 PM EDT Problem: Pain Goal: Patient goal is pain score less than 4, able to rest, and participant in treatment plan as appropriate Description: INTERVENTIONS: 1. Encourage patient or legal claims customer service representative to report early pain and [...] per policy 9. Teach patient or legal claims customer service representative interventions for comforting Outcome: Progressing [...] at the bedside 7. Instruct patient/ patient claims customer service representative about use of safety devices 8. Include patient/ patient claims customer service representative in decisions related to safety [...] hygiene technique. 7. Identify and instruct patient/patient claims customer service representative in use of appropriate isolation precautionsfor identified infection/symptoms. 8. Provide and discuss with patient/patient claims customer service representative on educational MDRO sheet. 9. Encourage and monitor nutritional status daily and consult chief radiologic technologist if indicated. 10. Implement neutropenic guidelines as needed. Outcome: Progressing Note: Evaluation of progress towards goal: No new s/s of infection. Problem: Knowledge Deficit Goal: Patient/patient claims customer service representative demonstrates understanding of disease process, treatment plan,medications, and discharge instructions Description: INTERVENTIONS 1. Complete [...] supplement as ordered 13. Collaborate with clinical chief radiologic technologist 14. Include patient/ patient's claims customer service representative in decisions related to nutrition [...] be free from fall Description: Interventions: 1. Towanda to environment 2. Hourly rounds addressing the [...] non-skid footwear 11. Teach patient and patient claims customer service representative to maintain environment for safety [...] (cane, walker) within reach 19. Request patient claims customer service representative bring adaptive equipment/mobility aids from home or obtain and provide as needed 20. Consult pharmacy regarding effects of med's affecting mobility, cognition, and alternatives 21. Obtain physician order for PT if risk factors associated with mobility are present 22. Obtain physician order for OT as appropriate 23. Utilize diversional activities 24. Educate patient and patient claims customer service representative how to maintain a safe environment during visitationtimes (notify nurse prior to leaving bedside) 25. Consider appropriateness of medical or non-spanish medical interpreter 26. Set up voiding schedule as appropriate [...] appropriate 6. Collaborate with case management/social work therapist for discharge needs Outcome: Progressing Note: Evaluation [...] sudden weight gain, distended neck veins in olderchildren, enlarged liver and spleen) 1. Monitor intake and output 2. Monitor pt's weight 1. Monitor labs and assess patient for signs and symptoms of electrolyte imbalances 2. Administer electrolyte replacement as ordered 3. Monitor response to electrolyte replacements, including repeat lab results as appropriate 4. Fluid restriction or hydration as ordered 5. Instruct patient/ legal claims customer service representative on nutrition/diet; fluid/hydration restrictions as appropriate Outcome: Progressing Note: Evaluation of progress towards goal: Monitor e-lytes and replace per protocol Problem: Hematologic - Adult Goal: Maintains hematologic stability Description: INTERVENTIONS 1. Assess for signs and symptoms of bleeding or hemorrhage 2. Monitor labs as ordered 3. Administer supportive blood products/factors as ordered and appropriate 4. Sizerock and maintain bleeding precautions Outcome: Progressing Note: Evaluation of progress towards goal: No s/s of bleeding, q8h H&H checks. Hgb remains stable. [employer]05-10-2025 Progress note* Situational Awareness - Lisbet Brush MD - 09/30/2024 3:19 PM EDT [facility]ICAL [facility] SIGN-OFF NOTE Name: Ashlee Banerjee Date: 09/30/2024 Admit Date: 09/29/2024 Patient to be transferred out of the ICU. Sign-out has been called to Dr. Jackson at 3:19 PM. Critical Care will sign off at time of transfer out of ICU. Please call Critical Care GRICELDA at if there any questions. Thank you. LISBET BRUSH MD [facility]05-10-2025 Plan of care note* Plan of Care - Joe Lao RN - 09/30/2024 10:54 AM EDT Problem: Pain Goal: Patient goal is pain score less than 4, able to rest, and participant in treatment plan as appropriate Description: INTERVENTIONS: 1. Encourage patient or legal claims customer service representative to report early pain and [...] per policy 9. Teach patient or legal claims customer service representative interventions for comforting 09/30/2024 1052 by AURORA Diaz Outcome: Progressing Note: Evaluation of progress towards goal: Patient denies pain at this time; repositioned for comfort; PRN pain medication if needed. 09/30/2024 1035 by AURORA Diaz Outcome: Progressing [...] at the bedside 7. Instruct patient/ patient claims customer service representative about use of safety devices 8. Include patient/ patient claims customer service representative in decisions related to safety 09/30/2024 1052 by AURORA Diaz Outcome: Progressing [...] hygiene technique. 7. Identify and instruct patient/patient claims customer service representative in use of appropriate isolation precautionsfor identified infection/symptoms. 8. Provide and discuss with patient/patient claims customer service representative on educational MDRO sheet. 9. Encourage and monitor nutritional status daily and consult chief radiologic technologist if indicated. 10. Implement neutropenic guidelines as needed. 09/30/2024 1052 by AURORA Diaz Outcome: Progressing Note: Evaluation of progress towards goal: No active infections 09/30/20241034 by AURORA Diaz Outcome: Progressing Note: Evaluation of progress towards goal: Patient afebrile; vitals stable; antibiotic therapy continues Problem: Knowledge Deficit Goal: Patient/patient claims customer service representative demonstrates understanding of disease process, treatment plan,medications, and discharge instructions Description: INTERVENTIONS 1. Complete learning assessment and assess knowledge base 2. Provide teaching at level of understanding 3. Provide teaching via preferred learning method(s) 09/30/2024 1052 by AURORA Diaz Outcome: Progressing Note: Evaluation of progress towards goal: pt updated on POC 09/30/2024 103 by AURORA Diaz Outcome: Progressing [...] for needed discharge transportation as appropriate 09/30/2024 1052 by AURORA Diaz Outcome: Progressing Note: Evaluation of progress towards goal: pt has d/c planning 09/30/2024 103 by AURORA Diaz Outcome: Progressing [...] supplement as ordered 13. Collaborate with clinical chief radiologic technologist 14. Include patient/ patient's claims customer service representative in decisions related to nutrition 09/30/2024 105 by AURORA Diaz Outcome: Progressing [...] initiate plans and interventions as needed 09/30/2024 105 by AURORA Diaz Outcome: Progressing Note: Evaluation of progress towards goal: No new skin breakdown noted; turning patient every 2 hours per protocol 09/30/2024 103 by AURORA Diaz Outcome: Progressing Note: Evaluation of progress towards goal: No new skin breakdown noted; turning patient every 2 hours per protocol Problem: Moderate - High Risk Fall Score Description: Almazan Fall Score of =/> 25 or indicated by [facility] Assessment Goal: Patient should be free from fall Description: Interventions: 1. [place] to environment 2. Hourly rounds addressing the [...] non-skid footwear 11. Teach patient and patient claims customer service representative to maintain environment for safety [...] (cane, walker) within reach 19. Request patient claims customer service representative bring adaptive equipment/mobility aids from home or obtain and provide as needed 20. Consult pharmacy regarding effects of med's affecting mobility, cognition, and alternatives 21. Obtain physician order for PT if risk factors associated with mobility are present 22. Obtain physician order for OT as appropriate 23. Utilize diversional activities 24. Educate patient and patient claims customer service representative how to maintain a safe environment during visitationtimes (notify nurse prior to leaving bedside) 25. Consider appropriateness of medical or non-spanish medical interpreter 26. Set up voiding schedule as appropriate [...] appropriate 6. Collaborate with case management/social work therapist for discharge needs 09/30/2024 1052 by AURORA Diaz Outcome: Progressing Note: Evaluation of progress towards goal: 09/30/2024 1035 by AURORA Diaz Outcome: Progressing Note: Evaluation of progress towards goal: [facility]05-10-2025 Consult note* Anne-Marie Suggs MD - 09/30/2024 9:17 AM EDTAssociated Order(s): IP CONSULT TO GASTROENTEROLOGY [facility] Initial Gastroenterology/Hepatology Consultation Note IDENTIFYING DATA PATIENT: Ashlee Banerjee ADMIT DATE: 09/29/2024 TIME OF EVALUATION: 09/30/2024 9:19 AM Reason for Consult: Melena and anemia. HISTORY OF PRESENT ILLNESS Ashlee Banerjee is a 73 y.o. woman with past medical history significant for hypertension, biopsy-proven primary biliary cholangitis with advanced fibrosis/cirrhosis based on transjugular biopsy done on September 20, 2024 at [place] (pathology showed changes compatible with PVC and stage 3-4 fibrosis), history of GAVE 1st week of August (this is per patient history, this was done at [facility] and no records are available. Patient reports that after she had her liver biopsy done on September 20 she noted frequent bowel movement with black stools, she thinks that this happened immediately a day after her liver biopsy. Shedenied any prior history of melena. She also noted some upper abdominal pain/discomfort. She was evaluated at outside facility in [place] and her hemoglobin was 6.8. She received 2 units ofpacked red blood cells. Initially patient required pressors [...] History: MEDICATIONS Allergies: Allergies Allergen Reactions Cyclobenzaprine Sqygsro-Twpwqjvmsv-Ufhqny-Soy Morphine Nickel Penicillins Sulfites No medications prior [...] to person, place, and time. She appears well- developed and well-nourished. HENT Head Normocephalic and atraumatic. Cardiovascular: Normal rate and regular rhythm. Pulmonary/Chest: Effort normal. No respiratory distress. Abdominal: She exhibits no distension and no mass. Soft. There is abdominal tenderness. There is noguarding. Mild tenderness on deep palpation of the [...] biopsy done on September 20, 2024 at [place] (pathology showed changes compatible with PVC and stage 3-4 fibrosis), history of GAVE on EGD that was performed on the 1st week of August (this is per patient history, this was done at [facility] and no records are available. Patient presented [...] care of Ashlee Banerjee. [place] [address] PH: [phone] [facility]05-10-2025 Consult note* Anne-Marie Suggs MD - 09/30/2024 9:17 AM EDTAssociated Order(s): IP CONSULT TO GASTROENTEROLOGY [facility] Initial Gastroenterology/Hepatology Consultation Note IDENTIFYING DATA PATIENT: Ashlee Banerjee ADMIT DATE: 09/29/2024 TIME OF EVALUATION: 09/30/2024 9:19 AM Reason for Consult: Melena and anemia. HISTORY OF PRESENT ILLNESS Ashlee Banerjee is a 73 y.o. woman with past medical history significant for hypertension, biopsy-proven primary biliary cholangitis with advanced fibrosis/cirrhosis based on transjugular biopsy done on September 20, 2024 at [place] (pathology showed changes compatible with PVC and stage 3-4 fibrosis), history of GAVE 1st week of August (this is per patient history, this was done at [facility] and no records are available. Patient reports that after she had her liver biopsy done on September 20 she noted frequent bowel movement with black stools, she thinks that this happened immediately a day after her liver biopsy. Shedenied any prior history of melena. She also noted some upper abdominal pain/discomfort. She was evaluated at outside facility in [place] and her hemoglobin was 6.8. She received 2 units ofpacked red blood cells. Initially patient required pressors [...] History: MEDICATIONS Allergies: Allergies Allergen Reactions Cyclobenzaprine Vhcllsp-Nfjydlxkde-Uyprit-Soy Morphine Nickel Penicillins Sulfites No medications prior [...] to person, place, and time. She appears well- developed and well-nourished. HENT Head Normocephalic and atraumatic. Cardiovascular: Normal rate and regular rhythm. Pulmonary/Chest: Effort normal. No respiratory distress. Abdominal: She exhibits no distension and no mass. Soft. There is abdominal tenderness. There is noguarding. Mild tenderness on deep palpation of the [...] biopsy done on September 20, 2024 at [place] (pathology showed changes compatible with PVC and stage 3-4 fibrosis), history of GAVE on EGD that was performed on the week of August (this is per patient history, this was done at [facility] and no records are available. Patient presented [...] care of Ashlee Banerjee. Anne-Marie Suggs MD [facility] [place] [address] PH: [phone] * Ramon Decker MD - 09/30/2024 6:28 AM EDTAssociated Order(s): IP CONSULT TO GENERAL SURGERY Images [...] a recent transjugular liver biopsy at [facility] on09/20/2024 and since then has been experiencing epigastric/RUQ abdominal pain and darker colored stools. Patient endorses that she does have a history of hemorrhoids and has experienced blood when shewipes, however change in stool caliber and color [...] upper GI bleed, patient was transferred to [facility] for further workup by GI and general [...] history on file. Allergies Allergen Reactions Cyclobenzaprine Qriodzs-Ktduftkynt-Fybswb-Soy Morphine Nickel Penicillins Sulfites Current Facility-Administered Medications: [...] injection 1 mg, 1 mg, intramuscular, PRN, Tj Amin APRN-SHEILA magnesium sulfate IVPB 2000 mg/50 mL in iso-osmotic water (40 mg/mL premix), 2,000 mg, intravenous,PRN OR magnesium sulfate IVPB 4000 mg/100 mL in iso- osmotic water (40 mg/mL premix), 4,000 mg, intravenous, PRN, ALEXANDER Rubio norepinephrine (LEVOPHED) infusion 8 mg/250 mL in sod chlor 0.9% (0.032 mg/mL PMX), 0.01-0.2 mcg/kg/min (Order-Specific), intravenous, Continuous, ALEXANDER Rubio, Held at 09/29/242014 pantoprazole (PROTONIX) injection 40 mg, 40 mg, intravenous, Q12H, ALEXANDER Rubio, 40 mgat 09/29/242042 potassium chloride (K-TAB,KLOR-CON) CR tablet 20-40 mEq, 20-40 mEq, oral, PRN OR potassium chloride (KAYCIEL) 20 mEq/15 mL solution 20-40 mEq, 20-40 mEq, oral, PRN, Tj J Eloisa, VARNISH MAKER HELPER-WET ROLLER potassium chloride IVPB 10 mEq/50 mL in water (0.2 mEq/mL premix), 10 mEq, intravenous, PRN OR potassium chloride IVPB 10 mEq/100 mL in water (0.1 mEq/mL premix), 10 mEq, intravenous, PRN, Tj J Eloisa, VARNISH MAKER HELPER-WET ROLLER sodium chloride 0.9 % infusion, 10 mL/hr, intravenous, Continuous PRN, Tj J Eloisa, VARNISH MAKER HELPER-WET ROLLER sodium chloride 0.9 % infusion, 10 mL/hr, intravenous, Continuous PRN, Tj J Eloisa, VARNISH MAKER HELPER-WET ROLLER sodium chloride 0.9 % infusion, 10 mL/hr, intravenous, Continuous PRN, Tj J Eloisa, VARNISH MAKER HELPER-WET ROLLER sodium chloride 0.9 % infusion, 75 mL/hr, intravenous, Continuous, Tj J Eloisa, VARNISH MAKER HELPER-WET ROLLER, Last Rate: 75 mL/hr at 09/30/24 0559, [...] Resource Strain: Medium Risk (04/10/2024) Received from [facility] Overall Financial Resource Strain (CARDIA) Difficulty of Paying Living Expenses: Somewhat hard Food Insecurity: No Food Insecurity (09/28/2024) Received from [facility] Hunger Vital Sign Worried About Running Out of Food in the Last Year: Never true Ran Out of Food in the Last Year: Never true Transportation Needs: No Transportation Needs (09/28/2024) Received from [facility] PRAPARE - Transportation Lack of Transportation (Medical): No Lack of Transportation (Non-Medical): No Physical Activity: Insufficiently Active (04/10/2024) Received from [facility] Exercise Vital Sign Days of Exercise per Week: 3 days Minutes of Exercise per Session: 10 min Stress: Stress Concern Present (04/10/2024) Received from [facility] [employer] [place] [facility] Occupational [facility] - Occupational Stress Questionnaire Feeling of Stress : To some extent Social Connections: Moderately Integrated (04/10/2024) Received from [facility] Social Connection and Isolation Panel [NHANES] Frequency of Communication with Friends and Family: More than three times a week Frequency of Social Gatherings with Friends and Family: Twice a week Attends Restoration Services: 1 to 4 times per year Active Member of Clubs or Organizations: Yes Attends Club or Organization Meetings: More than 4 times per year Marital Status: Never Interpersonal Safety: Patient Declined (04/10/2024) Received from [facility] Humiliation, Afraid, Rape, and Kick questionnaire Fear of Current or Ex-Partner: Patient declined Emotionally Abused: Patient declined Physically Abused: Patient declined Sexually Abused: Patient declined Housing Instability: Low Risk (09/28/2024) Received from [facility] Housing Stability Vital Sign Unable to [...] temperature 36.7 C (98.1 F), temperature source Oral,resp. rate 18, height 154.9 cm (5' 1 [...] has been a hysterectomy. There is trace ascitesin the pelvis. Bones/Soft Tissues: There is a left hip arthroplasty. No fracture or suspicious bonelesion is identified. Impression: 1. No aortic aneurysm or dissection. There is moderate atherosclerosis with approximately 25% stenosis at the origin of the left subclavian artery due to fibrocalcific calcific plaque. 2.Distension of the gallbladder with cholelithiasis and tumefactive sludge in the gallbladder. The common bile duct is dilated measuring up to 1.3 cm and there is dependent soft tissue attenuation in the common bile duct believed to represent sludge. Correlation with liver function tests is suggested. 3. Hepatic cirrhosis with portal hypertension including splenomegaly and a small amount of ascitesin the abdomen and pelvis. 4. Thickening of [...] 11:41 AM 09/20/24 midazolam (VERSED) injection 0-10 mgGiven 1 mg Given Rate: 0 Route: Intravenous; [...] 0 Route: Intravenous; 12:07 PM 09/20/24 midazolam (VERSED)injection 0-10 mg Given 1 mg Given Rate: [...] and physiologic status. After administration of sedative m edication(s), I spent 33 minutes of continuous wiav-on-jols time with the patient. COMPARISON: No prior studies available for comparison. TIME OUT: Prior to the procedure a time out was performed in the presence of the patient and all personnel involved in this case. The patient identity, proceduretype, procedure side/site, and allergies were verified. TECHNIQUE: [...] wire was advanced into the IVC. A 10-Taiwanese by 40 cm hemostatic sheath was placed. An endhole catheter was advanced into the right hepatic vein. A right hepatic venogramwas obtained. The catheter was then positioned into a wedged position and wedged hepatic pressure measurement was obtained. It was then pulled back into the free position and free hepatic venous pressure was obtained. This process was repeated until a total of 2 sets of pressure measurements were ob tained. The right atrial pressure was measured via the sheath. An Amplatz wire was placed through the catheter. The sheath was positioned into the right hepatic vein. A biopsy device was advanced through the sheath into the right hepatic vein. A total of 4 passes were made in the right hepatic veinand tissue samples were obtained and submitted in [...] 11: AM 09/20/24 midazolam (VERSED) injection 0-10 mgGiven 1 mg Given Rate: 0 Route: Intravenous; [...] 20 mL Given Rate: 0 Route: Intravenous; 12: PM 09/20/24 fentaNYL (SUBLIMAZE) injection 0-300 mcg Given 50 mcg Given Rate: 0 Route: Intravenous; 12:07 PM 09/20/24 midazolam (VERSED)injection 0-10 mg Given 1 mg Given Rate: [...] and physiologic status. After administration of sedative m edication(s), I spent 33 minutes of continuous wuea-tq-dohe time with the patient. COMPARISON: No prior studies available for comparison. TIME OUT: Prior to the procedure a time out was performed in the presence of the patient and all personnel involved in this case. The patient identity, proceduretype, procedure side/site, and allergies were verified. TECHNIQUE: [...] wire was advanced into the IVC. A 10-Taiwanese by 40 cm hemostatic sheath was placed. An endhole catheter was advanced into the right hepatic vein. A right hepatic venogramwas obtained. The catheter was then positioned into a wedged position and wedged hepatic pressure measurement was obtained. It was then pulled back into the free position and free hepatic venous pressure was obtained. This process was repeated until a total of 2 sets of pressure measurements were ob tained. The right atrial pressure was measured via the sheath. An Amplatz wire was placed through the catheter. The sheath was positioned into the right hepatic vein. A biopsy device was advanced through the sheath into the right hepatic vein. A total of 4 passes were made in the right hepatic veinand tissue samples were obtained and submitted in [...] our system. 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 Plan: Patient would likely benefit from cholecystectomy during this admission, however will defer until after patient is clinically stable GI team consulted, appreciate recommendations regarding possible EGD and/or EUS to evaluate biliarytrack Recommend trying to get images from outside [...] of the service. I was directly involved inthe management and treatment plan of the patient. I reviewed the resident's note. Additional Notes/Findings: Abdomen is soft and mildly tender. Hgb stable. CT images reviewed, no active extravasation. Will plan to follow. [facility]* Ramon Decker MD - 09/30/2024 6:28 AM EDTAssociated Order(s): IP CONSULT TO GENERAL SURGERY Images [...] a recent transjugular liver biopsy at [facility] on09/20/2024 and since then has been experiencing epigastric/RUQ abdominal pain and darker colored stools. Patient endorses that she does have a history of hemorrhoids and has experienced blood when shewipes, however change in stool caliber and color [...] upper GI bleed, patient was transferred to [facility] for further workup by GI and general [...] history on file. Allergies Allergen Reactions Cyclobenzaprine Kqbtian-Ofonwoswln-Cuawxg-Soy Morphine Nickel Penicillins Sulfites Current Facility-Administered Medications: [...] % (D5W) infusion, 100 mL/hr, intravenous, Continuous PRN, ALEXANDER Rubio dextrose 50 % in water (D50W) 50% solution 25 mL, 25 mL, intravenous, PRNTj APRN-CNP fentaNYL (SUBLIMAZE) injection 50 mcg, 50 mcg, intravenous, Q2H PRN OR fentaNYL (SUBLIMAZE) injection 25 mcg, 25 mcg, intravenous, Q2H PRN, ALEXANDER Rubio glucagon HCL injection 1 mg, 1 mg, intramuscular, PRN, ALEXANDER Rubio magnesium sulfate IVPB 2000 mg/50 mL in iso-osmotic water (40 mg/mL premix), 2,000 mg, intravenous,PRN OR magnesium sulfate IVPB 4000 mg/100 mL in iso- osmotic water (40 mg/mL premix), 4,000 mg, intravenous, PRN, ALEXANDER Rubio norepinephrine (LEVOPHED) infusion 8 mg/250 mL in sod chlor 0.9% (0.032 mg/mL PMX), 0.01-0.2 mcg/kg/min (Order-Specific), intravenous, Continuous, ALEXANDER Rubio, Held at 09/29/242014 pantoprazole (PROTONIX) injection 40 mg, 40 mg, intravenous, Q12H, ALEXANDER Rubio, 40 mgat 09/29/242042 potassium chloride (K-TAB,KLOR-CON) CR tablet 20-40 mEq, 20-40 mEq, oral, PRN OR potassium chloride (KAYCIEL) 20 mEq/15 mL solution 20-40 mEq, 20-40 mEq, oral, PRN, Tj J Eloisa, VARNISH MAKER HELPER-WET ROLLER potassium chloride IVPB 10 mEq/50 mL in water (0.2 mEq/mL premix), 10 mEq, intravenous, PRN OR potassium chloride IVPB 10 mEq/100 mL in water (0.1 mEq/mL premix), 10 mEq, intravenous, PRN, Tj J Eloisa, VARNISH MAKER HELPER-WET ROLLER sodium chloride 0.9 % infusion, 10 mL/hr, intravenous, Continuous PRN, Tj J Eloisa, VARNISH MAKER HELPER-WET ROLLER sodium chloride 0.9 % infusion, 10 mL/hr, intravenous, Continuous PRN, Tj J Eloisa, VARNISH MAKER HELPER-WET ROLLER sodium chloride 0.9 % infusion, 10 mL/hr, intravenous, Continuous PRN, Tj J Eloisa, VARNISH MAKER HELPER-WET ROLLER sodium chloride 0.9 % infusion, 75 mL/hr, intravenous, Continuous, Tj J Eloisa, VARNISH MAKER HELPER-WET ROLLER, Last Rate: 75 mL/hr at 09/30/24 0559, [...] Resource Strain: Medium Risk (04/10/2024) Received from [facility] Overall Financial Resource Strain (CARDIA) Difficulty of Paying Living Expenses: Somewhat hard Food Insecurity: No Food Insecurity (09/28/2024) Received from [facility] Hunger Vital Sign Worried About Running Out of Food in the Last Year: Never true Ran Out of Food in the Last Year: Never true Transportation Needs: No Transportation Needs (09/28/2024) Received from [facility] PRAPARE - Transportation Lack of Transportation (Medical): No Lack of Transportation (Non-Medical): No Physical Activity: Insufficiently Active (04/10/2024) Received from [facility] Exercise Vital Sign Days of Exercise per Week: 3 days Minutes of Exercise per Session: 10 min Stress: Stress Concern Present (04/10/2024) Received from [facility] [employer] [place] [facility] [employer] - Occupational Stress Questionnaire Feeling of Stress : To some extent Social Connections: Moderately Integrated (04/10/2024) Received from [facility] Social Connection and Isolation Panel [NHANES] Frequency of Communication with Friends and Family: More than three times a week Frequency of Social Gatherings with Friends and Family: Twice a week Attends Restoration Services: 1 to 4 times per year Active Member of Clubs or Organizations: Yes Attends Club or Organization Meetings: More than 4 times per year Marital Status: Never Interpersonal Safety: Patient Declined (04/10/2024) [facility] Humiliation, Afraid, Rape, and Kick questionnaire Fear of Current or Ex-Partner: Patient declined Emotionally Abused: Patient declined Physically Abused: Patient declined Sexually Abused: Patient declined Housing Instability: Low Risk (09/28/2024) Received from [facility] Housing Stability Vital Sign Unable to [...] temperature 36.7 C (98.1 F), temperature source Oral,resp. rate 18, height 154.9 cm (5' 1 [...] has been a hysterectomy. There is trace ascitesin the pelvis. Bones/Soft Tissues: There is a left hip arthroplasty. No fracture or suspicious bonelesion is identified. Impression: 1. No aortic aneurysm or dissection. There is moderate atherosclerosis with approximately 25% stenosis at the origin of the left subclavian artery due to fibrocalcific calcific plaque. 2.Distension of the gallbladder with cholelithiasis and tumefactive sludge in the gallbladder. The common bile duct is dilated measuring up to 1.3 cm and there is dependent soft tissue attenuation in the common bile duct believed to represent sludge. Correlation with liver function tests is suggested. 3. Hepatic cirrhosis with portal hypertension including splenomegaly and a small amount of ascitesin the abdomen and pelvis. 4. Thickening of [...] 50 mcg Given Rate: 0 Route: Intravenous; : AM 09/20/24 midazolam (VERSED) injection 0-10 mgGiven 1 mg Given Rate: 0 Route: Intravenous; [...] 0 Route: Intravenous; 12:07 PM 09/20/24 midazolam (VERSED)injection 0-10 mg Given 1 mg Given Rate: [...] and physiologic status. After administration of sedative m edication(s), I spent 33 minutes of continuous aaii-hk-uavy time with the patient. COMPARISON: No prior studies available for comparison. TIME OUT: Prior to the procedure a time out was performed in the presence of the patient and all personnel involved in this case. The patient identity, proceduretype, procedure side/site, and allergies were verified. TECHNIQUE: [...] wire was advanced into the IVC. A 10-Taiwanese by 40 cm hemostatic sheath was placed. An endhole catheter was advanced into the right hepatic vein. A right hepatic venogramwas obtained. The catheter was then positioned into a wedged position and wedged hepatic pressure measurement was obtained. It was then pulled back into the free position and free hepatic venous pressure was obtained. This process was repeated until a total of 2 sets of pressure measurements were ob tained. The right atrial pressure was measured via the sheath. An Amplatz wire was placed through the catheter. The sheath was positioned into the right hepatic vein. A biopsy device was advanced through the sheath into the right hepatic vein. A total of 4 passes were made in the right hepatic veinand tissue samples were obtained and submitted in [...] 11:41 AM 09/20/24 midazolam (VERSED) injection 0-10 mgGiven 1 mg Given Rate: 0 Route: Intravenous; [...] 0 Route: Intravenous; 12:07 PM 09/20/24 midazolam (VERSED)injection 0-10 mg Given 1 mg Given Rate: [...] and physiologic status. After administration of sedative m edication(s), I spent 33 minutes of continuous fzgs-no-ueev time with the patient. COMPARISON: No prior studies available for comparison. TIME OUT: Prior to the procedure a time out was performed in the presence of the patient and all personnel involved in this case. The patient identity, proceduretype, procedure side/site, and allergies were verified. TECHNIQUE: [...] wire was advanced into the IVC. A 10-Taiwanese by 40 cm hemostatic sheath was placed. An endhole catheter was advanced into the right hepatic vein. A right hepatic venogramwas obtained. The catheter was then positioned into a wedged position and wedged hepatic pressure measurement was obtained. It was then pulled back into the free position and free hepatic venous pressure was obtained. This process was repeated until a total of 2 sets of pressure measurements were ob tained. The right atrial pressure was measured via the sheath. An Amplatz wire was placed through the catheter. The sheath was positioned into the right hepatic vein. A biopsy device was advanced through the sheath into the right hepatic vein. A total of 4 passes were made in the right hepatic veinand tissue samples were obtained and submitted in [...] our system. 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 Plan: Patient would likely benefit from cholecystectomy during this admission, however will defer until after patient is clinically stable GI team consulted, appreciate recommendations regarding possible EGD and/or EUS to evaluate biliarytrack Recommend trying to get images from outside [...] of the service. I was directly involved inthe management and treatment plan of the patient. I reviewed the resident's note. Additional Notes/Findings: Abdomen is soft and mildly tender. Hgb stable. CT images reviewed, no active extravasation. Will plan to follow. [employer] Work Phone: [phone]) 296-907705-10-2025 Plan of care note* Plan of Care - Reba Post RN - 09/30/2024 5:46 AM EDT Problem: Pain Goal: Patient goal is pain score less than 4, able to rest, and participant in treatment plan as appropriate Description: INTERVENTIONS: 1. Encourage patient or legal claims customer service representative to report early pain and [...] per policy 9. Teach patient or legal claims customer service representative interventions for comforting 09/30/2024544 by [...] at the bedside 7. Instruct patient/ patient claims customer service representative about use of safety devices 8. Include patient/ patient claims customer service representative in decisions related to safety [...] hygiene technique. 7. Identify and instruct patient/patient claims customer service representative in use of appropriate isolation precautionsfor identified infection/symptoms. 8. Provide and discuss with patient/patient claims customer service representative on educational MDRO sheet. 9. Encourage and monitor nutritional status daily and consult chief radiologic technologist if indicated. 10. Implement neutropenic guidelines as needed. 09/30/2024 0545 by AURORA Britton Outcome: Progressing Note: Evaluation of progress towards goal: Infection safety policies applied to patient's care while monitoring s/s, labs, and vitals for any indications of infection. 09/30/2024 0506 by AURORA Britton Outcome: Progressing Note: Evaluation of progress towards goal: Problem: Knowledge Deficit Goal: Patient/patient claims customer service representative demonstrates understanding of disease process, treatment plan,medications, and discharge instructions Description: INTERVENTIONS 1. Complete learning assessment and assess knowledge base 2. Provide teaching at level of understanding 3. Provide teaching via preferred learning method(s) Outcome: Progressing Note: Evaluation of progress towards goal: continue to provide education to patient and family whenavailable Problem: Discharge Planning Goal: Discharge to post-acute [...] intact and without issues at this time [facility]05-09-2025 History and physical note* Tj Amin, VARNISH MAKER HELPER-WET ROLLER - 09/29/2024 7:49 PM EDT Images from the original note were [...] stomach'. Patient was a direct admit at [facility] from her doctor's office due to abdominal pain. She states that she has been having intermittent RUQ pain every 2 days or so ever since she had her liver biopsy at [facility]. She also reports that she has noticed dark-colored stools recently. Patient has known history of primary biliary cirrhosis as stated above. She follows with Dr. Patino in [place] as wellas with doctors at [place]. She has had previous EGD in August the patient states did not show varices. While at [place], patient was admitted to the ICU due to hypotension and anemia. She was given 2 units of packed red blood cells and started on norepinephrine. CTA did not show active bleeding, however, did note cholelithiasis and sludge. She was transferred to [facility] for GI services. Currently, vital signs are [...] Past Surgical History: Liver biopsy 09/20/2024 at [facility] Allergies: Morphine Nickel Sulfites Leucine Cyclobenzaprine [...] Amin APRN, CNP Acute Care Nurse Practitioner [facility] Please feel free to contact me via Patient Touch. CRITICAL CARE TIME: 40 minutes. Non-contiguous time with attending MD, excluding procedures. This patient, with a critical illness, requires constant monitoring and titration of care by a Critical Care Effervescent Salts Compounder or GRICELDA. Failure to do so may result in further organ system failure, imminent deterioration, or . ALEXANDER Rubio 09/29/242032 Cosigned by Hal Linder MD at 09/30/2024 5:21 AM EDT [employer] Work Phone: [phone]) 892-610905-09-2025 History of Present illness Narrative* Valorie Coronado RN - 09/29/2024 6:12 PM EDT Report given to transport crew. * Valorie Coronado RN - 09/29/2024 6:12 PM EDT Called report to Agnieszka at [facility]. * Kvng Díaz RN - 09/29/2024 2:52 PM EDT test company called at this time for update. They stated the ETA is TBD as they are calling around for transport. * Valorie Coronado RN - 09/29/2024 2:32 PM EDT Let access know that patient was through with testing and procedures and clear for transport. * Valorie Coronado RN - 09/29/2024 2:31 PM EDT Returned from Nuc [facility] at this time. * Valorie Coronado RN - 09/29/2024 1:40 PM EDT Hung new bag of Normal Saline and new Protonix drip while patient was in nuc med testing. Scanner unavailable * Valorie Coronado RN - 09/29/2024 12:38 PM EDT Accompanied patient to [facility] at this time along with RVAT nurse for PICC placement. * Valorie Coronado RN - 09/29/2024 11:18 AM EDT Vascular access team to be here in 1.5 hrs. Updated Teresa * Valorie Coronado RN - 09/29/2024 8:26 AM EDT Updated [facility] access at this time * Valorie Coronado RN - 09/29/2024 7:47 AM EDT Blood transfusion completed at this time. Recheck HGB in one hour per orders. * Valorie Coronado RN - 09/29/2024 7:[address] Eller and Teresa SEASONAL RECRUITER rounding at bedside. * Vidya Baign - 09/29/2024 7:01 AM EDT Comprehensive Nutrition Assessment Type and Reason for Visit: Initial Nutrition Recommendations/Plan: Recommendation of GI bland diet with presence of abdominal pain and GERD. Meet >75% of estimated needs. Consume >50% of meals after NPO. Malnutrition Assessment: Malnutrition Status: At risk for malnutrition (09/29/24 0724) Context: Acute Illness Findings of the 6 clinical characteristics of malnutrition: Energy Intake: 75% or less of estimated energy requirements for 7 or more days Weight Loss: No weight loss Body Fat Loss: No body fat loss Muscle Mass Loss: No muscle mass loss Fluid Accumulation: No fluid accumulation It Quality Analyst Strength: Not Performed Nutrition Assessment: Predicted inadequate [...] Measures: Height: 154.9 cm (5' 0.98 ) Felton Body Weight (IBW): 105 lbs (48 kg) [...] Used for Energy Requirements: Current Energy (kcal/day): 5348-1264 (20-23kcal/kg) Weight Used for Protein Requirements: [place]ton Protein (g/day): 58-67 (1.2-1.4g/kg) Method Used for Fluid Requirements: 1 ml/kcal Fluid (ml/day): 1240-4077 Nutrition Diagnosis: Predicted inadequate energy intake related [...] Planning: Continue current diet Serena Baig Contact: [phone] Cosigned by Negrita Godinez, RD, LD at 09/29/2024 11:52 AM EDT * Teresa Moss, VARNISH MAKER HELPER - WET ROLLER - 09/29/2024 6:38 AM EDT INTENSIVE CARE UNIT VARNISH MAKER HELPER - Progress Note Patient - Ashlee Banerjee Date of Admission - 09/28/2024 1:32 PM Date of Evaluation - 09/29/2024 Hospital Day - 1 SUBJECTIVE: The Ashlee Banerjee is a 73 y.o. female who is seen for follow up in the ICU. Per nursing reportand notes, overnight events include: hypotension, worsening Hgb [...] 17 95 % -- 09/29/24 0530 (!) 98/40 98.1 F (36.7 C) Oral 66 20 -- -- 09/29/24 0517 (!) 93/31 98.1 F (36.7 C) Oral 67 22 97 % -- 09/29/24 0500 (!) 94/30 99.1 F (37.3 C) Oral 62 22 94 % -- 09/29/24 0445 (!) 84/34 -- -- 60 20 96 % -- 09/29/24 0442 (!) 93/30 -- -- 57 22 96 % -- 09/29/24 0422 (!) 83/43 98.9 F (37.2 C) Temporal 52 16 96 % -- 09/29/24 0405 (!) 83/46 -- -- (!) 48 -- -- -- 09/29/24 0350 (!) 83/41 -- -- 50 -- -- -- 09/29/24 0345 (!) 84/41 -- -- 50 -- -- -- 09/29/24 [...] at 09/29/2024 0638 Last data filed at 09/29/2024 0331 Gross per 24 hour Intake 2529.67 ml Output 300 ml Net 2229.67 ml Date 09/29/24 0000 - 09/29/24 2359 Shift 8279-9079 0996-4530 8888-4640 24 Hour Total INTAKE I.V.(mL/kg/hr) 2529.7 2529.7 [...] results found for: PHART , PH , TER1FLV , PCO2 , PO2ART , PO2 , IHJ7EHL , HCO3 , BEART , BE , THGBART , THB , ACK4PDH , O9ZKWTIP , O2SAT , FIO2 Radiology/Imaging: CTA CHEST [...] 1.3 cm and thee is dependent soft tissueattentuation in the CBD thought to be sludge. [...] I/O Daily Weight Nutritional Supplements as tolerated Valve Machine Operator consult initiated MALNUTRITION ASSESSMENT AND PLAN [...] so far today, excluding separately billable procedures. [facility] Advanced Care Planning documentation: [x] I have confirmed that the patient's Advance Care Plan is present, Code Status is documented, orsurrogate decision maker is listed in the patient's [...] the patient's medical record. [DOES NOT SATISFY [facility] PERFORMANCE] WM Hopper CNP , WM-SEASONAL RECRUITER-C 09/29/2024 6:38 AM Cosigned by Cooper Eller MD at 09/29/2024 9:51 AM EDT Associated attestation - Cooper Eller MD - 09/29/2024 9:51 AM EDT Attending Supervising Physician s Attestation Statement I have personally evaluated and examined the patient [id number] in conjunction with the nurse practitioner. I agree with management and disposition of the patient. Examined and Reviewed plan of care with SEASONAL RECRUITER. Directions and discussion about care and plans. [...] patient. Electronically signed by Cooper Eller MD * Dana Fajardo RN - 09/29/2024 5:08 AM EDT Playground Equipment Erector called patient's emergency contact, Arun Valentine (sister) to make aware of transfer to ICU. Was sent to voicemail, message left on voicemail to give call back regarding update on patient's status. * Dana Fajardo RN - 09/29/2024 4:48 AM EDT Report given to Eloisa SIMON on patient. Blood administration hand off given to Eloisa SIMON who will remain at bedside for first 15 minutes of blood administration. * Dana Fajardo RN - 09/29/2024 4:44 AM EDT Patient transferred back to ICU, room I305, at this time. Blood was obtained by writer and Shelby SIMON. Unit of blood started by writer and Shelby SIMON once patient back in ICU. Eloisa SIMON who will be taking over patient care is currently at bedside. RN supervisorand Smita SOSA at bedside as well. Patient continues to be hypotensive but patient remains alert and orientated at this time. * Dana Fajardo RN - 09/29/2024 4:20 AM EDT RN were at bedside with patient assisting to [...] of this issues. Patient hypotensive and bradycardic. Writercalled Smita SOSA and requested to come to bedside. EKG, Fingerstick and blood work obtained. Bolus was initiated. Patient placed in trendelenburg. Hemoglobin came back as 6.8. Unit of blood needed. Smita SOSA to transfer patient back to ICU. * Smita Washington APRN - CNP - 09/29/2024 4:00 AM EDT Called to the bedside by nursing staff for change in patient condition. RN states that the patient had gotten up [...] she was in the restroom. Patient to bannersferred back to ICU for closer monitoring. Cosigned by Cooper Eller MD at 09/29/2024 9:51 AM EDT * Zaida Moya RN - 09/28/2024 7:17 PM EDT Patient assessment and vitals completed as charted. Patient A&OX4 and cooperative with assessment. Patient resting comfortably at this time, denies complains of a little bit of pain and requestedpain medications. Denies any needs. Call light within patients reach and bed alarm on. Plan of careongoing. * Ronel Jackson RN - 09/28/2024 2:12 PM EDT [facility]. Vitals and assessment complete. See flowsheets for details. Breathing is regular and unlabored. Lung sounds are clear. Patient reports upper mid abdominal pain. Abdomen is soft and tender. Bowel sounds are active x4. Patient reports passing bloody loose stools. Patient denies further needs at this time. Call light is within reach. Care ongoing. documented in this encounterBon [place] [address]69-30-2025 Nurse Note* Nursing Notes - Kristen Stock RN - 09/20/2024 2:43 PM EDT Abdominal pain and nausea improved. Patient has met outpatient Interventional Radiology post procedure and post sedation discharge criteria. RN discussed After Visit Summary with patient and visitor. Answered all pt questions. Phone numbers given, voices understanding of materials. Right neck dressing clean, dry, and intact, no swelling or shadowing noted. Returned to baseline ambulatory state. All patient belongings gathered priorto discharge home. Pt taken by wheelchair to waiting car for discharge home per MD order. [facility]04-30-2025 Miscellaneous Notes* Nursing Notes - Kristen Stock RN - 09/20/2024 2:43 PM EDT Abdominal pain and nausea improved. Patient has met outpatient Interventional Radiology post procedure and post sedation discharge criteria. RN discussed After Visit Summary with patient and visitor. Answered all pt questions. Phone numbers given, voices understanding of materials. Right neck dressing clean, dry, and intact, no swelling or shadowing noted. Returned to baseline ambulatory state. All patient belongings gathered priorto discharge home. Pt taken by wheelchair to waiting car for discharge home per MD order. * Nursing Notes - Kristen Stock RN - 09/20/2024 2:04 PM EDT 1330: C/o Continuing to have nausea 1 hour post zofran administration. 5mg IV compazine ordered. 1345: C/o 10/10 abdominal pain, Dr. Whipple notified and assessed patient. 2.5mg oxycodone ordered. * Nursing Notes - Smita Pyle RN - 09/20/2024 12:10 PM EDT Interventional Radiology procedure completed with IR Attending MD Whipple/ of transjugular liver biopsy. Pt tolerated procedure with IV sedation and local numbing agent. Surgical path sample time-out done per myself and Teresa Henry RN. Pt to travel to [facility] for post procedure recovery. Po st procedure orders for nursing to acknowledge including strict bedrest for 2 hours post biopsy. Needle out - 1207 Intra-procedure pressures obtained by as the followinst pressures Right Atrium Pressure: 6 Wedge Pressure: 16 Free Hepatic Pressure: 10 2nd pressures Right Atrium Pressure: 5 Wedge Pressure: 13 Free Hepatic Pressure: 8 documented in [facility] Nurse Note* Nursing Notes - Kristen Stock RN - 09/20/2024 2:04 PM EDT 1330: C/o Continuing to have nausea 1 hour post zofran administration. 5mg IV compazine ordered. 1345: C/o 10/10 abdominal pain, Dr. Whipple notified and assessed patient. 2.5mg oxycodone ordered. [facility]04-30-2025 Nurse Note* Nursing Notes - Smita Pyle RN - 09/20/2024 12:10 PM EDT Interventional Radiology procedure completed with IR Attending MD Whipple/ of transjugular liver biopsy. Pt tolerated procedure with IV sedation and local numbing agent. Surgical path sample time-out done per myself and Teresa Henry RN. Pt to travel to [facility] for post procedure recovery. Po st procedure orders for nursing to acknowledge including strict bedrest for 2 hours post biopsy. Needle out - 1207 Intra-procedure pressures obtained by as the followinst pressures Right Atrium Pressure: 6 Wedge Pressure: 16 Free Hepatic Pressure: 10 2nd pressures Right Atrium Pressure: 5 Wedge Pressure: 13 Free Hepatic Pressure: 8 [facility]04-30-2025 Hospital Discharge instructions* Discharge Instructions* Christina Skaggs RN - 09/20/2024 11:00 AM [...] or on Weekends, please call the Hospital Ball Rolling Machine Operator at [phone] and ask them for the Interventional Filer Finish On-Call documented in this encounterOSU [facility] NoteMissing Attachment - attachment storage system not supported [id number] Can be viewed in source system Missing Attachment - attachment storage system not supported [id number] Can be viewed in source system Missing Attachment - attachment storage system not supported [id number] Can be viewed in source system Missing Attachment - attachment storage system not supported [id number] Can be viewed in source system Missing Attachment - attachment storage system not supported [id number] Can be viewed in source system Missing Attachment - attachment storage system not supported [id number] Can be viewed in source system Patient: [...] surgical case FUSION OF BIG TOE JOINT (22557) on 03/24/2021 at 70 Years. Comments: 06/20/2021 14:27 Smita Leyva Left great toe FUSION OF BIG TOE JOINT (14567) on 11/21/2020 at 70 Years. Comments: 06/20/2021 14:27 Smita Leyva Right great toe TOTAL KNEE ARTHROPLASTY (21837) on 05/24/2016 at 65 Years. Comments: 06/20/2021 14:26 Smita Leyva Lt knee REPAIR ROTATOR CUFF ACUTE (87385) on 05/24/2014 at 63 Years. Comments: 06/20/2021 14:25 Smita Leyva Lt REPAIR ROTATOR CUFF ACUTE (13794) on 05/24/2012 at 61 Years. Comments: 06/20/2021 14:25 Smita Leyva Right TOTAL KNEE ARTHROPLASTY (93082) on 05/24/2010 at 59 Years. Comments: 06/20/2021 14:24 Smita Leyva Right ANESTH REPAIR OF HERNIA (80803) on 05/24/1998 at 47 Years. Comments: 06/20/2021 14:23 Smita Leyva 1999 Incisional hernia from hysterectomy REMOVE TONSILS AND ADENOIDS (25063). REMOVE PILONIDAL CYST COMPL (35456). EXPLORATION MAXILLARY SINUS (26824). Comments: 06/20/2021 14:21 Smita Leyva RT ANESTH HYSTERECTOMY (67093). Provision of bladder vibration stimulation device ([id number]).. Informed Consent: After discussing the rationale, risks [...] were none. Estimated blood loss during the procedurewas none. Impression and Plan EGD: Course: Progressing [...] signed by Andrae Patino MD 08/23/24 10:49 [facility] HealthComment on above:Order Comment: Missing Attachment - attachment storage system not supported [id number] Can be viewed in source system Missing Attachment - attachment storage system not supported [id number] Can be viewed in source systemMissing Attachment - attachment storage system not supported [id number] Can be viewed in source systemMissing Attachment - attachment storage system not supported [id number] Can be viewed in source systemMissing Attachment - attachment storage system not supported [id number] Can be viewed in source systemMissing Attachment - attachment storage system not supported [id number] Can be viewed in source [id number] History of Present illness Narrative* Jr. Keith Gabriel, - 06/20/2024 10:00 AM EST Images from the original note were not [...] UP AND MOVING- PT IS WONDERING IF THEMUSCLE IS HEALED - TYLENOL ES PRN- PT USES CAN OCCASIONALLY WHEN OUTSIDE OF HOME- MINIMAL LIMP- PTWOULD LIKE TO START AN EXERCISE ROUTINE ALLERGIES: [...] mg, Oral, 2 times daily with meals [place] 3-6-9 Fatty Acids (TRIPLE OMEGA COMPLEX PO) [...] Use: Not At Risk (03/27/2024) Received from [facility] Frequency of Alcohol Consumption: Never [...] the lower extremities bilaterally. Compartments were soft tolower extremities bilaterally. Questions answered in laymen terms at the bedside. The diagnosis, home exercise plan and any ongoing restrictions/ recommendations reviewed. If unable to be reached in office, I recommend evaluation at nearest Emergency Room if any symptoms worsened or new symptoms develop for requiring urgent evaluation. documented in this encounterHedrick Medical [id number] History of Present illness Narrative* Geri Vergara MD - 04/12/2024 12:40 PM EST DX: [id number] Posterior cervical laminoplasty, C4 to C7, with Globus Canopy laminoplasty system. LV: [id number] Ms Rubio returns today now 1 year out from her surgery. PE: Incision C/D/I, at neuro baseline, deltoids intact, she has lost some fascial integrity but theskin is still mobile over the spinous processes. [...] flexion-extension cervical spine xrays. documented in this [id number] History of Present illness Narrative* Jr. Keith Gabriel DO - 03/20/2024 1:00 PM EDT Images from the original note were [...] the operative lower extremity with abduction stress testingnot preformed secondary to surgery healing. Dorsalis pedis and posterior tibial pulses were presentand equal bilaterally. Sensation to light touch was [...] flexion, seated leg press. We have discussed herHEP and restrictions and will see her back 3 months to reassess her left hip strength / ROM. Keith Gabriel D.O. documented in this encounterHedrick Medical CenterBsgdwkoddf10-04-1753 Telephone encounter Note* Telephone Encounter - JAY Leonard - 02/22/2024 3:47 PM EDT Pt reports doing well, finishing up with therapy in coming weeks.. discussed travels to [facility] For appts.. pt will take breaks with travel.. pt pleased with progress, working on balance, occ tylenol. I am really doing well. [facility] Medical CenterIbnwniusyj03-15-1973 Miscellaneous Notes* Telephone Encounter - JAY Leonard - 02/22/2024 3:47 PM EDT Pt reports doing well, finishing up with therapy in coming weeks.. discussed travels to [facility] For appts.. pt will take breaks with travel.. pt pleased with progress, working on balance, occ tylenol. I am really doing well. * Telephone Encounter - Anamaria Santiago - 02/22/2024 2:23 PM EDT Patient left vm asking for Andrei to call her back regarding her travel restrictions. Please advise [phone]. documented in this encounterHedrick Medical [id number] Telephone encounter Note* Telephone Encounter - Anamaria Santiago - 02/22/2024 2:23 PM EDT Patient left vm asking for Andrei to call her back regarding her travel restrictions. Please advise [phone]. Hedrick Medical [id number] History of Present illness Narrative* Jr. Keith Gabriel, - 02/02/2024 10:00 AM EDT Images from the original note were not included. HISTORY OF PRESENT ILLNESS: POST OP PT Ashlee Banerjee is an 73 y.o. @ female. (EST PT ; LAST APPT W/ ANDREI) S/P (L) JESUS - NICKEL FREE 12/23/23 (5WKS 6DAYS) XRAYS DONE TODAY, 02/02/24 IN [facility] CONTINUES TO HAVE DISCOMFORT - WORSE HS [...] the operative lower extremity with abduction stress testingnot preformed secondary to surgery healing. Dorsalis pedis and posterior tibial pulses were presentand equal bilaterally. Sensation to light touch was [...] position and alignment of left total hip arthroplasty.There was no evidence of loosening of the acetabular cup or femoral stem. Femoral head was well centered in the acetabular liner without evidence of asymmetric or accelerated wear. There was no grossevidence of fracture and/or dislocation. Impression: Unremarkable left total hip arthroplasty. Procedures Orders Placed This Encounter Procedures XR hip left 2 or 3 views Order Specific Question: Reason for exam: Answer: POST-OP Ambulatory referral to Physical Therapy [facility] ; continue to increase strength / ROM [...] bedside. Patient is pleased with her left hipprogress as she admits her left hip is better now than it was prior to sx. She admits that she feels her leg lengths are equal. Patient proceeds to formal physical therapy at [facility] as an outpatient. Patient admits that she [...] time. Keith Gabriel D.O. documented in this encounterHedrick Medical CenterWhqvwwfbhc50-28-1653 Telephone encounter Note* Telephone Encounter - Carol Hurtado - 01/17/2024 1:49 PM EDT Mimi Worthy called today and left vm wanting some clarification on pt for Eloquis- pt is saying something different than what than had down. Please call them to clarify at [phone] [facility] CenterLkeoeegkuh15-11-5219 Miscellaneous Notes* Telephone Encounter - Carol Hurtado - 01/17/2024 1:49 PM EDT Mimi Worthy called today and left vm wanting some clarification on pt for Eloquis- pt is saying something different than what than had down. Please call them to clarify at [phone] documented in this encounterHedrick Medical CenterJfljpzkrho36-39-9246 Note [id number]#1.00[facility]08-05-2024 NoteEducation Materials POST OPERATIVE TOTAL KNEE/HIP DISCHARGE INTRUCTIONS [...] your doctor immediately or go to the emergencyroom. How can I prevent DVT? You should keep active. Moving the ankle and foot and bending the knee as tolerated when you are inbed and walking as tolerated. Take medication, especially [...] #8 follow up in office with physician gallery assistant Andrei Dutta as scheduled #9 [facility] will be contacting you within the next 24 hours to set up home therapy visit #[address] Gabriel at the office [phone] or have him paged through the hospital rough and trueing machine operator [phone] for any concerns or questions #[address] Gabriel if no bowel movement in 2 days Or if you're uncomfortable before that #12 You have been given a prescription for Percocet, Percocet is a narcotic, narcotics are addictive. If you feel you have problems with addiction, feel free to contact Dr. Gabriel, your family physician, or proceed immediately to the nearest [facility] emergency services department. 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 Template Non-Formulary (Restore) [...] range between ( 1.3 and 2.9 ) Cayey Abs#: 0.9 x103/mcL -- Normal range between ( 0.0 and 0.8 ) Auto Baso %: 1.2 % -- Normal range between ( 0.2 and 2.0 ) Auto Cay[place] %: 13 % -- Normal range between [...] 8 ) UA S (more content not included)...[facility] CenterBogdimrj54-05-6734 Note [id number]#1.00[facility]07-08-2024 History of Present illness Narrative* Lakisha Cordoab MD - 11/29/2023 2:00 PM EDT Images from the original note were not included. Chief Complaint: Primary biliary cholangitis (PBC) History of Present Illness: Ashlee Banerjee is a 73 y.o. female who presents to the [facility] Gastroenterology, Hepatology, and Nutrition Clinic [...] has lost approximately 70 pounds over the last20 years with portion control. Mrs. Banerjee had cervical spinal stenosis s/p repair on 03/31/2023. Patient will have a left totalhip arthroplasty soon. 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 documented in this encounterOS[facility] Instructions* Patient Instructions* Lakisha Cordoba MD - 11/29/2023 2:00 PM [...] clinic in one year. documented in [facility] History of Present illness Narrative* Geri Vergara MD - 09/15/2023 2:48 PM EDT DX: [id number] Posterior cervical laminoplasty, C4 to C7, with Globus Canopy laminoplasty system. LV: [id number] Ms Rubio returns today now 6 months out from her surgery. She is dealing with some L hip issues - bursitis vs hip arthritis. PE: Incision C/D/I, at neuro baseline, deltoids intact, she has lost some fascial integrity but theskin is still mobile over the spinous processes. [...] her 1 year postop with standing lateral flexion- extension views of her cervical spine. documented in this [id number] History of Present illness Narrative* Lisa Huff RN - 06/17/2023 10:59 AM EST Patient was identified by name and date of . Lisa Huff RN Patient at risk for falls:No Falls Risk protocol implemented: No * Geri Vergara MD - 06/16/2023 6:06 PM EST DX: [id number] Posterior cervical laminoplasty, C4 to C7, with [...] of her cervical spine. documented in this [id number] Telephone encounter Note* Telephone Encounter - Addie Fox RN - 05/04/2023 1:46 PM EST RN called pt. Pt answered. Pt wanted to know how long to do her neck exercises. RN answered her question, 2 five minutes sessions a day. RN went over the same post-operative teaching that was done at106/22/22 post operative visit. Pt verbalized understanding and was taking notes both at that visit and during this phone call. Pt asked how to send messages in [employer]. RN let her know to make sure she is logged into her [place] [employer] and to send messages to Dr Vergara and they will get to his RN. Pt agreeable. No further questions. Pt verbalized understanding. ----- Message from Judith Palm sent at 05/04/2023 12:15 PM EST ----- Regarding: clarification Needs clarification on her neck exercises. Please call. [id number] Miscellaneous Notes* Telephone Encounter - Addie Fox RN - 05/04/2023 1:46 PM EST RN called pt. Pt answered. Pt wanted to know how long to do her neck exercises. RN answered her question, 2 five minutes sessions a day. RN went over the same post-operative teaching that was done at106/22/22 post operative visit. Pt verbalized understanding and was taking notes both at that visit and during this phone call. Pt asked how to send messages in [employer]. RN let her know to make sure she is logged into her [place] [employer] and to send messages to Dr Vergara and they will get to his RN. Pt agreeable. No further questions. Pt verbalized understanding. ----- Message from Judith Palm sent at 05/04/2023 12:15 PM EST ----- Regarding: clarification Needs clarification on her neck exercises. Please call. documented in this [id number] History of Present illness Narrative* Mauricio Sotelo - 04/22/2023 4:22 PM EST Soft cervical collar dispensed to patient in clinic. * Addie Fox RN - 04/22/2023 10:30 AM EST Patient was identified by name and date [...] She needs to be mindful of her bowels.Continue to work the hands as much as possible and walk a little bit farther today than yesterday. Dr Vergara will want to see her back in 8-10 weeks with standing lateral flexion extension views of the cervical spine. documented in this [id number] Telephone encounter Note* Telephone Encounter - Addie Fox RN - 04/09/2023 10:25 AM EST RN called [facility] back. Spoke with Tasha who had originally called. Advised pt's justine are to stay inplace until follow up appt on 04/22/23. Pt ok to shower, mild soap and water can run over the incision. No vigorous scrubbing. Pat dry. Leave open to air or cover lightly with dry gauze and change daily. Tasha agreeable. No further questions. Tasha verbalized understanding. ----- Message from Maura Trotter sent at 04/08/2023 4:13 PM EST ----- Regarding: ? from [facility] Deacon Cordoba [phone] Calling to question can she get a shower ? Hair washed ? Still has justine - Dressing off today [id number] Miscellaneous Notes* Telephone Encounter - Addie Fox RN - 04/09/2023 10:25 AM EST RN called [facility] back. Spoke with Tasha who had originally called. Advised pt's justine are to stay inplace until follow up appt on 04/22/23. Pt ok to shower, mild soap and water can run over the incision. No vigorous scrubbing. Pat dry. Leave open to air or cover lightly with dry gauze and change daily. Tasha agreeable. No further questions. Tasha verbalized understanding. ----- Message from Maura Trotter sent at 04/08/2023 4:13 PM EST ----- Regarding: ? from [facility] Deacon Cordoba [phone] Calling to question can she get a shower ? Hair washed ? Still has justine - Dressing off today documented in this [id number] History of Present illness Narrative* Geri Vergara MD - 03/23/2023 1:27 PM EDT DX: Cervical spondylosis with myelopathy LV: [id number] Ms Banerjee comes in today with family. It is her preoperative appointment. We spent about 45 minutes talking about the upcoming surgery. They understand the importance of regular bowel habits goinginto surgery. They understand it's extremely important to [...] day of their surgery. documented in this [id number] Instructions* Patient Instructions* Dee Mireles APRN-CNP - 03/23/2023 11:05 AM [...] all Co Q 10 , Vitamin E, Pomfret 3, fish oil and herbal supplements for 1 week prior to surgery Do not take Valsartan,hydrochlorothiazide morning of surgery Don't take any metformin evening before and the morning of surgery Do not take any diabetes medication on the morning of the surgery documented in this [id number] Instructions* Patient Instructions* Dee Mireles APRN-CNP - 03/23/2023 11:05 AM [...] all Co Q 10 , Vitamin E, Pomfret 3, fish oil and herbal supplements for 1 week prior to surgery Do not take Valsartan,hydrochlorothiazide morning of surgery Don't take any metformin evening before and the morning of surgery Do not take any diabetes medication on the morning of the surgery documented in this [id number] Evaluation note* PSE Appt H&P - AnsonYamilka richardse - 03/23/2023 10:41 AM EDT Patient was identified by name and date of . Kassandra Griggs Patient at risk for falls:No Falls Risk protocol implemented: No [id number] Miscellaneous Notes* PSE Appt H&P - AnsonYamilka richardse - 03/23/2023 10:41 AM EDT Patient was identified by name and date of . Kassandra Griggs Patient at risk for falls:No Falls Risk protocol implemented: No * PSE Appt H&P - Dee Mireles APRN-CNP - 03/22/2023 1:39 PM EDT Images from the original note were not included. Presurgical Evaluation (Pre-Admission Testing) Consultation Ashlee Banerjee, [id number] 72 year old Female 03/23/2023 Consult placed [...] that started many years ,pain has gotten worseover past 1 year . Surgical intervention warranted [...] Take 2 Tablets by mouth. (Patient not taking:Reported on 02/11/2023) cycloSPORINE (RESTASIS OP) by Ophthalmic route. cetirizine (ZyrTEC Allergy) 10 MG tablet Take 10 mg by mouth. Triamcinolone Acetonide (NASACORT NASAL) Use in each nostril. aspirin EC 81 MG tablet Take 81 mg by mouth daily. Calcium Citrate 150 MG CAPS Take by mouth 3 times daily. Cholecalciferol (Vitamin D) 50 MCG (2000 UT) TABS Take by mouth. Pomfret 3-6-9 Fatty Acids (TRIPLE OMEGA-3-6-9 ORAL) Take [...] aspirin 7 days before surgery ,Chlorhexidine soap andinstructions given to patient,Proceed to surgery 3) HTN -Do not take Valsartan,hydrochlorothiazide morning of surgery 4 ) DM 2 -Don't take any metformin evening before and the morning of surgery LABS, TESTS, CONSULTS ORDERED: Orders & Meds Signed During This Encounter GLUCOSE, FINGERSTICK-IN OFFICE [80882] BASIC METABOLIC PANEL [CH8] HEPATIC FUNCTION PANEL [HEPATIC] COMPLETE BLOOD COUNT W/DIFF (RAPID RESPONSE LABS) PROTHROMBIN TIME AND INR [PT] PARTIAL THROMBOPLASTIN TIME [APTT] TYPE AND SCREEN [TS] Abo Rh Type Complete Blood Count W/Diff EKG 12-LEAD TRACING [47846] LABORATORY DATA: Contains abnormal data HEMOGLOBIN A1C Order: [id number] Component Ref Range & Units 3 mo [...] Alvarez 10:50 AM 03/23/2023 documented in this [id number] Miscellaneous Notes* PSE Appt H&P - Kassandra Griggs - 03/23/2023 10:41 AM EDT Patient was identified by name and date of . Kassandra Griggs Patient at risk for falls:No Falls Risk protocol implemented: No * PSE Appt H&P - Aline DeeWM marie-WET ROLLER - 03/22/2023 1:39 PM EDT Images from the original note were not included. Presurgical Evaluation (Pre-Admission Testing) Consultation Ashlee Banerjee, [id number] 72 year old Female 03/23/2023 Consult placed to [facility] by Dr. Vergara Patient needs a PSE [...] that started many years ,pain has gotten worseover past 1 year . Surgical intervention warranted [...] Take 2 Tablets by mouth. (Patient not taking:Reported on 02/11/2023) cycloSPORINE (RESTASIS OP) by Ophthalmic route. cetirizine (ZyrTEC Allergy) 10 MG tablet Take 10 mg by mouth. Triamcinolone Acetonide (NASACORT NASAL) Use in each nostril. aspirin EC 81 MG tablet Take 81 mg by mouth daily. Calcium Citrate 150 MG CAPS Take by mouth 3 times daily. Cholecalciferol (Vitamin D) 50 MCG (1999 UT) TABS Take by mouth. Pomfret 3-6-9 Fatty Acids (TRIPLE OMEGA-3-6-9 ORAL) Take [...] aspirin 7 days before surgery ,Chlorhexidine soap andinstructions given to patient,Proceed to surgery 3) HTN -Do not take Valsartan,hydrochlorothiazide morning of surgery 4 ) DM 2 -Don't take any metformin evening before and the morning of surgery LABS, TESTS, CONSULTS ORDERED: Orders & Meds Signed During This Encounter GLUCOSE, FINGERSTICK-IN OFFICE [44675] BASIC METABOLIC PANEL [CH8] HEPATIC FUNCTION PANEL [HEPATIC] COMPLETE BLOOD COUNT W/DIFF (RAPID RESPONSE LABS) PROTHROMBIN TIME AND INR [PT] PARTIAL THROMBOPLASTIN TIME [APTT] TYPE AND SCREEN [TS] Abo Rh Type Complete Blood Count W/Diff EKG 12-LEAD TRACING [14532] LABORATORY DATA: Contains abnormal data HEMOGLOBIN A1C Order: [id number] Component Ref Range & Units 3 mo [...] Alvarez 10:50 AM 03/23/2023 documented in this [id number] Evaluation note* PSE Appt H&P - Dee Mireles APRN-CNP - 03/22/2023 1:39 PM EDT Images from the original note were not included. Presurgical Evaluation (Pre-Admission Testing) Consultation Ashlee Banerjee, [id number] 72 year old Female 03/23/2023 Consult placed [...] that started many years ,pain has gotten worseover past 1 year . Surgical intervention warranted [...] Take 2 Tablets by mouth. (Patient not taking:Reported on 02/11/2023) cycloSPORINE (RESTASIS OP) by Ophthalmic route. cetirizine (ZyrTEC Allergy) 10 MG tablet Take 10 mg by mouth. Triamcinolone Acetonide (NASACORT NASAL) Use in each nostril. aspirin EC 81 MG tablet Take 81 mg by mouth daily. Calcium Citrate 150 MG CAPS Take by mouth 3 times daily. Cholecalciferol (Vitamin D) 50 MCG (2000 UT) TABS Take by mouth. Pomfret 3-6-9 Fatty Acids (TRIPLE OMEGA-3-6-9 ORAL) Take [...] aspirin 7 days before surgery ,Chlorhexidine soap andinstructions given to patient,Proceed to surgery 3) HTN -Do not take Valsartan,hydrochlorothiazide morning of surgery 4 ) DM 2 -Don't take any metformin evening before and the morning of surgery LABS, TESTS, CONSULTS ORDERED: Orders & Meds Signed During This Encounter GLUCOSE, FINGERSTICK-IN OFFICE [54241] BASIC METABOLIC PANEL [CH8] HEPATIC FUNCTION PANEL [HEPATIC] COMPLETE BLOOD COUNT W/DIFF (RAPID RESPONSE LABS) PROTHROMBIN TIME AND INR [PT] PARTIAL THROMBOPLASTIN TIME [APTT] TYPE AND SCREEN [TS] Abo Rh Type Complete Blood Count W/Diff EKG 12-LEAD TRACING [41106] LABORATORY DATA: Contains abnormal data HEMOGLOBIN A1C Order: [id number] Component Ref Range & Units 3 mo [...] Interviewer signature: ALEXANDER Alvarez 10:50 AM 03/23/2023 [id number] History of Present illness Narrative* Judi Flores - 02/11/2023 11:39 AM EDT A soft cervical collar was dispensed to patient in clinic today. * Lisa Huff RN - 02/11/2023 10:38 AM EDT Patient was identified by name and date of . Lisa Huff RN Patient at risk for falls:Yes Falls Risk protocol implemented: Yes Ambulates with cane Lisa Huff RN * Geri Vergara MD - 02/10/2023 7:31 AM EDT Images from the original note were not included. DX: Cervical myelopathy LV: [id number] Ms Banerjee returns today. She received a ANAHY [id number]. It affected her neck symptoms on the leftside but it did not affect her low back pain. INV: MRI cervical performed 16oct2022 IMP: 71yo female significant cervical cord compression, significant clinical myelopathy. PLAN: I again offered her surgery. I am not sure how the ANAHY was done. She can call the office schedule surgery or follow up every 4-6 months. documented in this [id number] History of Present illness Narrative* Lisa Huff RN - 12/24/2022 10:35 AM EDT Patient was identified by name and date of . Lisa Huff RN Patient at risk for falls:No Falls Risk protocol implemented: No * Geri Vergara MD - 12/23/2022 7:54 PM EDT Images from the original note were not included. DX: Cervical myelopathy LV: [id number] Ms Banerjee returns today. [facility] pain management refused to do a ANAHY. She is going to talkto her new pain management docs in [place]. INV: MRI cervical performed 16oct2022 IMP: 71yo female significant cervical cord compression PLAN: I told her again I was concerned about her neck. Yes, I wish she can get a cervical 1 time asthe temporary relief she experiences from the injection is what she can expect from surgery. She isvery atypical as she has mostly lower extremity symptoms. She can call the office and schedule surgery or follow up every 4-6 months. documented in this [id number] Evaluation + Plan note Extracted from:Title:NPVAuthor:Rosalino FOSTER, Gerry DDate:11/10/22 Impression and Plan 72-year-old female with longstanding [...] substances from her current pain provider at [place]. She wishes to continue receiving those prescriptions from them at this time. I offered a referral for psychological care, the patient declined. The patient will follow-up with me as needed. If she decides to switch her care here we will obtain her previous pain management records in full and send the patient for urine drug screen. Patient voiced understanding and agrees with plan of [facility]06-08-2023 History of Present illness Narrative* Lisa Huff RN - 10/29/2022 9:58 AM EDT Patient was identified by name and date of . Lisa Huff RN Patient at risk for falls:No Falls Risk protocol implemented: No * Geri Vergara MD - 10/28/2022 6:37 AM EDT Images from the original note were not included. DX: Lumbar stenosis rule out cervical myelopathy LV: 06oct2022 Ms Banerjee returns today to review the [...] will consider her options. documented in this [id number] NoteCONSULTATION PROCEDURE DATE: 07/30/2022 PREOPERATIVE DIAGNOSIS: Bilateral [...] will be followed up in the office.[facility] 07-30-2022 NoteCONSULTATION CONSULTATION DATE: 07/30/2022 HISTORY OF PRESENT ILLNESS: This is a 71-year-old female who returns to the clinic status post lumbar epidural steroid injection completed on 07/07/2022. This patient received a lumbar epidural and it afforded only 10% relief. Historically, she has received much better relief, and she is disappointed. Medications include Jackson 5/325 b.i.d., Mobic 15 mg daily, Tylenol and trazodone. Patient has seen Dr. Geri Vergara, neurosurgeon, at [facility], but he has since moved to [facility]. She is going to follow up [...] in two months' time, unless otherwise indicated.[facility] [id number] NoteCONSULTATION CONSULTATION DATE: 06/25/2022 HISTORY OF PRESENT ILLNESS: This is a 71-year-old female who returns to the clinic following neurosurgical evaluation with Dr. Geri Vergara at [facility] in [place]. She was last seen in the office [...] denies any falls or injuries. Medications include Jackson 5/325 daily p.r.n., which she does use [...] mg daily and maintain her on her Jackson 5/325 p.r.n. Patient agrees with the procedure and will be followed up in the clinic thereafter.[facility] HospitalJhlsmkyg75-79-9937 Evaluation + Plan noteExtracted from:Title:Spine Follow upAuthor:uJvencio BARRON, AmandaDate: 06/16/22 Impression and Plan Patient is a 71-year-old female with a past medical history significant for lumbar stenosis and lumbar neuritis. We reviewed the MRI scan. We discussed different options. At this time she states thatsurgery would be her absolute last option I [...] surgery. She will follow-up with spine as needed.[facility]12-15-2022 NoteCONSULTATION PROCEDURE DATE: 05/07/2022 PREOPERATIVE DIAGNOSIS: [...] will be followed up in the office.[facility] HospitalPtehekyz27-79-2595 NoteCONSULTATION CONSULTATION DATE: 05/07/2022 HISTORY OF PRESENT [...] consent to. We will start her on Jackson 5/325 once or twice daily p.r.n. for pain. We are sending a referral to Neurosurgery to Dr. Anjum Vergara in [place] [facility]. Patient agrees with this plan of care, will be followed up here in two months' time, unless otherwise indicated.[facility] [id number] NoteCONSULTATION CONSULTATION DATE: 04/22/2022 This is a [...] of care. The patient is in agreement.[facility] HospitalYrxqzkax60-83-1379 NoteCONSULTATION CONSULTATION DATE: 03/18/2022 HISTORY OF PRESENT [...] followed up in the office post procedure.[facility] HospitalAazghnuf19-81-3300 NoteCONSULTATION CONSULTATION DATE: 02/19/2022 HISTORY OF PRESENT [...] followed up in the office post procedure.[facility] HospitalEayjfpjj22-41-1588 Note CONSULTATION CONSULTATION DATE: 11/19/2021 HISTORY OF [...] Patient agrees with the plan of care. [facility] Signed and Approved by: ANDREW CALLEJAS . 11/20/2021 13:37:00[facility]05-19-2022 NoteCONSULTATION CONSULTATION DATE: 10/09/2021 This 70-year-old female [...] followed up in the office post procedure. [facility] Signed and Approved by: ANDREW CALLEJAS . 10/13/2021 14:58:00[facility]03-15-2022 History of Present illness Narrative* Delores Wilson [...] a responsible adult. Yes [facility] this [facility] Phone: 1(614) 811-146103-15-2022 Hospital Discharge instructions* Instructions* Delores Wilson RN [...] urine. Call Dr. Alvarenga for any questions [phone] documented [facility] this [facility] Phone: 1(132) 221-370603-02-2022 History of Present illness Narrative* Sayda Sepulveda RN - 07/23/2021 9:00 AM EST [facility] Preadmission Testing Name: Ashlee Banerjee : 1950 Patient (home) Procedure INTERSTIM [...] stress test? [x] Yes [] No When/where: [facility] Was it normal? [x] Yes [] [...] Caregiver Arranged: Yes Ride Caregiver Provider: MOHANARUN BARNETT Bottle/Wipes provided with instructions for use: Yes [...] instructions reviewed with patient. documented in this [facility] Phone: evaluation + Plan note No data available for this section [facility] Future Appointments Appointment Date:06/16/2022 01:30:00 PM Scheduled Provider:Janie Henning PA-C Location[facility] Appointment Type:Spine - Follow Up (FT) [facility] note* Diagnosis Preop testing Preoperative examination, unspecified documented in this encounter [facility] Phone: evaluation note* Diagnosis OAB (overactive bladder)- Primary Hypertonicity of bladder Mixed incontinence Mixed incontinence urge and stress (male)(female) documented in this encounter [facility] Phone: evalyzquxs note* Diagnosis Urinary urgency Urgency of urination documented in this encounter [facility] [employer] Phone: evaluation note* Diagnosis Urinary urgency Urgency of urination Frequency of micturition Urinary frequency documented in this encounter [facility] [employer] Phone: evalnvskdr note* Diagnosis Spinal stenosis of lumbar region, [...] tumor markers [facility] Diagnosis Status post left hip replacement- Primary [facility] Nocturia [facility] Diagnosis Cervical spondylosis with myelopathy- Primary [facility] Diagnosis Cervical spondylosis with myelopathy [facility]* Diagnosis Status post left hip replacement- Primary Acute hip pain, left documented [facility]* Diagnosis Left hip pain- Primary Pain in joint, pelvic region and thigh Status post left hip replacement documented in [facility] encounter [facility]* Diagnosis Liver fibrosis Cirrhosis of liver without mention of alcohol [facility] Diagnosis Acute abdominal pain- Primary Abdominal pain, unspecified site Primary biliary cirrhosis (HCC) / 2003 / MRI 2022 Biliary cirrhosis Essential hypertension Unspecified essential hypertension Type 2 diabetes mellitus without complication, without long-term current use of insulin (HCC) / Metformin ER Gastrointestinal hemorrhage associated with anorectal source Hypovolemic shock (HCC) Other shock without mention of trauma [facility]* Diagnosis GI bleed- Primary Unspecified, hemorrhage of gastrointestinal tract Gastrointestinal hemorrhage with melena Gastrointestinal hemorrhage, unspecified gastrointestinal hemorrhage type Acute blood loss anemia Acute posthemorrhagic anemia Iron deficiency anemia, unspecified iron deficiency anemia type Right upper quadrant abdominal pain [facility] Diagnosis Left hip pain Pain in joint, pelvic region and thigh Acute pain of left knee Acute pain of right knee documented in this encounter [facility]* Diagnosis Nocturia Mixed incontinence Mixed incontinence urge and stress (male)(female) [facility]* Diagnosis Snoring Other dyspnea and respiratory abnormality Type 2 diabetes mellitus without complication, without long-term current use of insulin (HCC) / Metformin ER Sleep apnea, unspecified type [facility] Diagnosis Mixed incontinence Mixed incontinence urge and stress (male)(female) Suprapubic pain Abdominal pain, other specified site [facility]* Diagnosis Mixed incontinence Mixed incontinence urge and stress (male)(female) Suprapubic pain Abdominal pain, other specified site [facility]* Diagnosis Urge incontinence- Primary OAB (overactive bladder) Hypertonicity of bladder documented in this encounter [facility] Work Phone: evaluation note* Diagnosis Cervical spondylosis with myelopathy- Primary [facility]* Diagnosis Onset Date Resolution Status Admit Date Contusion of left chest wall acuteNovember 2024 1:18pm [facility] Work Phone: Hospital Discharge instructions No data available for this section [facility]* Attachments The following attachments cannot be sent through Care Everywhere. * Blood Transfusions: General Info (Malian) [facility] Discharge instructionsNot on filedocumented in this [facility]ProV[facility]charge instructions* Attachments The following attachments cannot be sent through Care Everywhere. * Blood Transfusions: General Info (Malian) documented in [facility] HospitalInstructionsNot on file documented [address] Hospital[facility] note No data available for this section [facility] for referral (narrative)* Consultation (Routine) - New RequestSpecialtyDiagnoses / ProceduresReferred By Contact Referred To Contact Diagnoses Primary biliary cholangitis Abnormal LFTs Splenomegaly Lakisha Cordoba MD [address] [place] [address] 3[address] [place] [address] Referral IDStatusReasonStart DateExpiration DateVisits RequestedVisits [id number] Request/ [facility] for referral (narrative)No reason for referral information availableHol[facility] Work Phone: Reason for visit Narrative* Auth/CertSpecialty Diagnoses / ProceduresReferred By ContactReferred To Contact Diagnoses OAB (overactive bladder) OAB MIXED CONTINENCE Procedures IA OPEN IMPLANTATION JENNI SACRAL NERVE SACRAL NERVE STIMULATOR IMPLANT--REMOVE INTERSTIM AND LEADS PLACEMENT OF NEW INTERSTIM Sandra Alvarenga MD [address] [facility], [address] [place] [address] [facility] [address] [place] [address] Referral IDStatusReasonStart DateExpiration DateVisits RequestedVisits [id number] [facility] Phone: reason for visit Narrative* Diagnostic X-Ray (Routine) - ClosedSpecialtyDiagnoses / ProceduresReferred By ContactReferred To Contact Radiology Diagnoses Cervical spondylosis with myelopathy Procedures XR C-SPINE FLEX/EXT ONLY 2 VIEWS Geri Vergara MD [address] [place] [address] Phone: tel: fax: [facility] DIAGNOSTIC RADIOLOGY [address] [place] [address] Phone: tel: Referral IDStatusReasonStart DateExpiration DateVisits RequestedVisits [id number]/20/202411/ [facility] for visit Narrative* Auth/CertSpecialtyDiagnoses / Procedures Referred By ContactReferred To Contact Diagnoses Liver fibrosis Liver fibrosis [K74.00] Procedures CHG HEPATC VNGRPH WDG/FR HEMODYN EVAL RS&I IA TRANSCATHETER BIOPSY CHG TRANSCATHETER BIOPSY RS&I VENOGRAPHY HEPATIC W/HEMODYNM EVALUATION W/S&I BX TRANSCATHETER BX TRANSCATHETER W/ S&I Caty, Interventional Rad [address] [place] [address] Phone: tel: fax: [facility] [address] [place] [address] Referral IDStatusReasonStart DateExpiration DateVisits RequestedVisits [id number] [facility] Narrative* Auth/CertSpecialtyDiagnoses / ProceduresReferred By ContactReferred To Contact Diagnoses Acute abdominal pain Cooper Eller MD [address] [facility], [place] [address] Phone: tel: fax: [facility] [address] [place] [address] Referral IDStatusReasonStart DateExpiration DateVisits RequestedVisits [id number] [facility] for visit Narrative* Auth/CertSpecialtyDiagnoses / ProceduresReferred By ContactReferred To Contact Diagnoses GI Bleed [address] [place] [place] [address] Referral IDStatusReasonStparis DateExpiration DateVisits RequestedVisits [id number] [facility] for visit Narrative* Other (Routine) - Not Required - RTASpecialtyDiagnoses / ProceduresReferred By ContactReferred To [facility] Diagnoses Snoring Type 2 diabetes mellitus without complication, without long-term current use of insulin (HCC) Sleep apnea, unspecified type Procedures Home Sleep Study Prashant Alvares APRN - [address] [place] [address] Phone: tel: fax: Referral IDStatusReasonStparis DateExpiration DateVisits RequestedVisits [id number] Required - RTA [facility] for visit Narrative* Imaging (Emergency) - Not Required - RTASpecialtyDiagnoses / ProceduresReferred By ContactReferred To ContactRadiology Diagnoses Mixed incontinence Suprapubic pain Procedures CT UROGRAM Prashant Alvares APRN - [facility] [address] [facility] [address] [place] [address] Phone: tel: fax: Referral IDStatusReasonMalvern DateExpiration DateVisits RequestedVisits [id number] Required - RTA [facility] for visit Narrative* Auth/Cert (Routine)Specialty Diagnoses / ProceduresReferred By ContactReferred To Contact Diagnoses Overactive bladder Mixed incontinence Overactive bladder [N32.81] Mixed incontinence [N39.46] Procedures IA OPEN INSJ/RPLCMT INTEGRATED NSTIMJ SYS PTN SUBQ TIBIAL NERVE STIMULATION Sandra Alvarenga MD [address] [facility], [facility] [address] [place] [address] Phone: tel: fax: [facility] [place] Phone: tel: Referral IDStatusReasonStart DateExpiration DateVisits RequestedVisits [id number] [facility] Work Phone: reason for visit Narrative* Diagnostic X-Ray (Routine) - ClosedSpecialtyDiagnoses / ProceduresReferred By ContactReferred To Contact Radiology Diagnoses Cervical spondylosis with myelopathy Procedures XR C-SPINE FLEX/EXT ONLY 2 VIEWS Geri Vergara MD [address] [place] [address] Phone: tel: fax: [facility] DIAGNOSTIC RADIOLOGY [address] [place] [id number] Phone: tel: Referral IDStatusReasonStart DateExpiration DateVisits RequestedVisits [id number]/5/202511/ [facility] Assessments Diagnosis Mixed incontinence Mixed incontinence urge and stress (male)(female) OAB (overactive bladder) Hypertonicity of bladder Frequency of urination Urinary frequency Urgency of urination Diagnosis Mixed incontinence Mixed incontinence urge and stress (male)(female) Diagnosis Renal stones Calculus of kidney Advance Directives No Advanced Directives Records FoundDocuments on File TypeDate RecordedPatient RepresentativeExplanationAdvance Directives and Living WillPower of AttorneyCode StatusDate ActivatedDate InactivatedCommentsFull Code 04/07/2016 12:51 PM04/07/2016 6:11 PMFull Code03/24/2016 7:53 AM03/24/2016 2:13 PM TypeDate RecordedPatient RepresentativeExplanationACP-Advance DirectiveACP-Power of AttorneyCode StatusDate ActivatedDate InactivatedCommentsFull Code04/07/2016 12:51 PM04/07/2016 6:11 PMFull Code03/24/2016 7:53 AM03/24/2016 2:13 PMCode StatusDate ActivatedDate InactivatedCommentsFull Code08/05/2021 12:10 PMFull Code 04/07/2016 12:51 PM04/07/2016 6:11 PMTypeDate RecordedPatient Senior Tax Accountant ExplanationACP-Advance DirectiveACP-Power of AttorneyCode StatusDate Activated Date InactivatedCommentsFull Code08/05/2021 12:10 PM08/05/2021 6:52 PMFull Code 04/07/2016 12:51 PM04/07/2016 6:11 PMCode StatusDate ActivatedDate Inactivated CommentsFull Code03/31/2023 3:39 PMQuestionAnswerCommentsDocumentation of decision process for this code status:Discussed with patient or surrogate. This is the code status chosen by the patient/surrogate.Code StatusDate ActivatedDate InactivatedCommentsFull Code03/31/2023 3:39 PM04/03/2023 3:35 PMQuestionAnswer CommentsDocumentation of decision process for this code status:Discussed with patient or surrogate. This is the code status chosen by the patient/surrogate. Code StatusDate ActivatedDate InactivatedCommentsFull Code03/31/2023 3:39 PM 04/03/2023 3:35 PMQuestionAnswerCommentsDocumentation of decision process for this code status:Discussed with patient or surrogate. This is the code status chosen by the patient/surrogate.Date ActivatedDate InactivatedComments08/05/2021 12:10 PM08/05/2021 6:52 PMDate ActivatedDate LemqfkigurnFxdvwzxp40/15/2016 12:51 PM04/07/2016 6:11 PMDate ActivatedDate DygzxnhrtxyVsigogda23/1/2016 7:53 AM 03/24/2016 2:13 PMDate ActivatedDate YrnsnmnbpvzMahjyedc03/8/2023 3:39 PM 04/03/2023 3:35 PMQuestionAnswerCommentsDocumentation of decision process for this code status:* Discussed with patient or surrogate. This is the code status chosen by the patient/surrogate. Date ActivatedDate InactivatedComments09/28/2024 1:46 PMDate ActivatedDate InactivatedComments08/05/2021 12:10 PM08/05/2021 6:52 PMDate ActivatedDate NjxymtalgspVdrswrdr36/15/2016 12:51 PM04/07/2016 6:11 PMDate ActivatedDate IccohjrrynaPzonpxbi21/1/2016 7:53 AM03/24/2016 2:13 PMDate ActivatedDate InactivatedComments09/29/2024 7:59 PM10/03/2024 6:17 PMDate ActivatedDate InactivatedComments09/29/2024 7:59 PM10/03/2024 6:17 PMDate ActivatedDate InactivatedComments09/28/2024 1:46 PM09/29/2024 8:18 PMDate ActivatedDate InactivatedComments08/05/2021 12:10 PM08/05/2021 6:52 PMDate ActivatedDate PnnbcmnmygnIfakwhdt23/15/2016 12:51 PM04/07/2016 6:11 PMDate ActivatedDate NectheyzxxwBpjktotr62/1/2016 7:53 AM03/24/2016 2:13 PMDate ActivatedDate InactivatedComments09/28/2024 1:46 PM09/29/2024 8:18 PMDate ActivatedDate VlvebftzebxAklpmyan43/29/2025 6:43 AMDate ActivatedDate InactivatedComments 09/28/2024 1:46 PM09/29/2024 8:18 PMDate ActivatedDate InactivatedComments08/05/2021 12:10 PM08/05/2021 6:52 PMDate ActivatedDate OioqigeovfqPzsboyaq11/15/2016 12:51 PM04/07/2016 6:11 PMDate ActivatedDate NtbntecjddoUjnwzkqt64/1/2016 7:53 AM 03/24/2016 2:13 PM Advance Directive Response Recorded Date/ Time Advance Directives No December 07 7:00am Reason for Referral SpecialtyDiagnoses / ProceduresReferred By ContactReferred To ContactCardiology Diagnoses Preop testing Procedures EKG 12 Lead Prashant Alvares, VARNISH MAKER HELPER - WET ROLLER [address] [facility] [address] [place] [address] Referral IDStatusReasonStart DateExpiration DateVisits RequestedVisits [id number] / ProceduresReferred By ContactReferred To ContactRadiology Diagnoses Spinal stenosis of lumbar region, unspecified whether neurogenic claudication present Procedures DOWNLOAD POWERSHARE IMAGES TO Geri Garay MD [address] [place] [address] [facility] DIAGNOSTIC RADIOLOGY [address] [place] [address] [place] [address] Referral IDStatusReasonStart DateExpiration DateVisits RequestedVisits [id number]/3/20235/[id number] / Procedures Referred By ContactReferred To ContactRadiology Diagnoses Myelopathy (HCC) Procedures MR NEURO IMAGE IMPORT(WHIT) DOWNLOAD POWERSHARE IMAGES TO Geri Garay MD [address] [place] [address] [facility] DIAGNOSTIC RADIOLOGY [address] [place] [address] [place] [address] Referral IDStatusReasonStart DateExpiration DateVisits RequestedVisits [id number]/5/20236/[id number] / Procedures Referred By ContactReferred To ContactRadiology Diagnoses Cervical spondylosis with myelopathy Procedures CT C-SPINE W/O CONTRAST Geri Vergara MD [address] [place] [address] [facility] [address] SCAN Referral IDStatusReasonStart DateExpiration DateVisits RequestedVisits [id number]/25/20239/154435Bqhzvmyr IDStatusReasonStart DateExpiration DateVisits RequestedVisits [id number]/25/2023955085AbgpwvnpaTjvgvxlej / ProceduresReferred By ContactReferred To Contact Radiology Diagnoses Cervical spondylosis with myelopathy Procedures XR C-SPINE FLEX/EXT ONLY 2 VIEWS Geri Vergara MD [address] [place] [address] [facility] DIAGNOSTIC RADIOLOGY [address] [place] [address] [place] [address] Referral IDStatusReasonStart DateExpiration DateVisits RequestedVisits [id number]/24/20241/[id number] IDStatusReasonStart Date Expiration DateVisits RequestedVisits [id number] Review09/15/2023774072QvxzvohyxUtovttlzd / ProceduresReferred By ContactReferred To Contact Physical Therapy Diagnoses Acute hip pain, left Status post left hip replacement Procedures IA OFFICE/OUTPATIENT NEW HIGH MDM 60 MINUTES Jr. Keith Gabriel DO [address] [place] [address] Referral IDStatusReasonStart DateExpiration DateVisits RequestedVisits [id number] Specialty Services Required 010 Summary Purpose Family History No Family History Records FoundNo Family History Records FoundNo Family History Records FoundNo Family History Records FoundNo Family History Records FoundNo Family History Records FoundNo Family History Records FoundNo Family History Records FoundNo Family History Records FoundNo Family History Records FoundNo Family History Records FoundNo Family History Records Found Chief Complaint and Reason for Visit Chief Complaint Admit Date Left shoulder, left knee pain after fall April 01, 2025 1:18pm R07.89 - Other chest pain April 01, 2025 2:01pm Reason for Visit Admit Date Contusion of left chest wall March 1:18pm Additional Source Comments Care Teams (unrecognized sec tion and content) Team MemberRelationshipSpecialtyStart DateEnd Date Cooper Eller MD [address] [place] [address], [facility] [place] [address] PCP - GeneralInternal Medicine07/20/14Team MemberRelationshipSpecialtyStart Date End Date Cooper Eller MD [address] [place] [address], [facility] [place] [address] PCP - GeneralInternal Medicine07/20/14Team MemberRelationshipSpecialtyStart Date End Date Cooper Eller MD [address] [place] [address] [place] [address] PCP - GeneralInternal Medicine07/20/14Te MemberRelationshipSpecialtyStart Date End Date Geri Vergara MD [address] [place] [address] PhysicianOrthopaedic Surgery09/26/22 MemberRelationshipSpecialtyStart DateEnd Date Geri Vergara MD [address] [place] [address] PhysicianOrthopaedic Surgery09/26/22 MemberRelationshipSpecialtyStart DateEnd Date Geri Vergara MD [address] [place] [address] PhysicianOrthopaedic Surgery09/26/22 MemberRelationshipSpecialtyStart DateEnd Date Geri Vergara MD [address] [place] [address] PhysicianOrthopaedic Surgery09/26/22 MemberRelationshipSpecialtyStart DateEnd Date Geri Vergara MD [address] [place] [address] PhysicianOrthopaedic Surgery09/26/22 MemberRelationshipSpecialtyStart DateEnd Date Geri Vergara MD [address] [place] [address] PhysicianOrthopaedic Surgery09/26/22Team MemberRelationshipSpecialtyStart DateEnd Date Geri Vergara MD [address] [place] [address] PhysicianOrthopaedic Surgery09/26/22Team MemberRelationshipSpecialtyStart DateEnd Date Geri Vergara MD [address] [place] [address] PhysicianOrthopaedic Surgery09/26/22Team MemberRelationshipSpecialtyStart DateEnd Date Geri Vergara MD [address] [place] [address] PhysicianOrthopaedic Surgery09/26/22Te MemberRelationshipSpecialtyStart DateEnd Geri Vergara MD [address] [place] [address] PhysicianOrthopaedic Surgery09/26/22Te MemberRelationshipSpecialtyStart DateEnd Geri Vergara MD [address] [place] [address] PhysicianOrthopaedic Surgery09/26/22Te MemberRelationshipSpecialtyStart DateEnd Geri Vergara MD [address] [place] [address] PhysicianOrthopaedic Surgery09/26/22Team MemberRelationshipSpecialtyStart DateEnd Geri Vergara MD [address] [place] [address] PhysicianOrthopaedic Surgery09/26/22Team MemberRelationshipSpecialtyStart DateEnd Date Geri Vergara MD [address] [place] [address] 85952 PhysicianOrthopaedic Surgery09/26/22 Dee Mireles APRN-CNP [address] [place] [address] [place] [address] YWMHbabvwozkeoiff93/4/23Team MemberRelationshipSpecialtyStart DateEnd Date Geri Vergara MD [address] [place] [address] PhysicianOrthopaedic Surgery09/26/22 Dee Mireles APRN-CNP [address] [place] [address] [place] [address] NBZZujbxvwzgcjqhu02/4/23Te MemberRelationshipSpecialtyStart DateEnd Date Geri Vergara MD [address] [place] [address] PhysicianOrthopaedic Surgery09/26/22 Dee Mireles APRN-CNP [address] [place] [address] [place] [address] WUDRkivsdfbcrctly12/4/23Te MemberRelationshipSpecialtyStart DateEnd Geri Powers MD [address] [place] [address] PhysicianOrthopaedic Surgery09/26/22 Dee Mireles APRN-CNP [address] [place] [address] [place] [address] SYNKuwnjhnjdzlqme46/4/23Team MemberRelationshipSpecialtyStart DateGeri Cole A., MD [address] [place] [address] PhysicianOrthopaedic Surgery09/26/22 Dee Mireles APRN-WET ROLLER [address] [place] [address] [place] [address] NTSGypsfzjghtbynf87/4/23Te MemberRelationshipSpecialtyStart DateEnd Date Geri Vergara MD [address] [place] [address] PhysicianOrthopaedic Surgery09/26/22 Dee Mireles APRN-WET ROLLER [address] [place] [address] [place] [address] WFIWtozpujidzpotn72/4/23Te MemberRelationshipSpecialtyStart DateEnd Geri Vergara MD [address] [place] [address]27 PhysicianOrthopaedic Surgery09/26/22 Dee Mireles VARNISH MAKER HELPER-WET ROLLER [address] [place] [address] [place] [address] CWRAouudvdliulqal48/4/23Te MemberRelationshipSpecialtyStart DateEnd Cooper Eller MD [address] [place] [address] [place] [address] PCP - GeneralInternal Medicine11/23/22 Andrae Patino MD [address] [place] [address] Gastroenterology11/23/22Team MemberRelationshipSpecialtyStart DateEnd Date Cooper Eller MD [address] [id number] PCP - Vgkhpde61/16/23Team MemberRelationshipSpecialtyStart DateEnd Date Cooper Eller MD [address] [address] PCP - Tfydkns27/16/23Team MemberRelationshipSpecialtyStart DateEnd Date Coopre Eller MD [address] [id number] PCP - Wmdiqhh04/16/23Team MemberRelationshipSpecialtyStart DateEnd Date Cooper Eller MD [address] [place] [address] PCP - GeneralInternal Medicine07/20/14Team MemberRelationshipSpecialtyStart Date End Date Geri Vergara MD [address] [place] [address] PhysicianOrthopaedic Surgery09/26/22 Dee Mireles, WM-WET ROLLER [address] [place] [address] QPKOqnlhgeclfprkg68/4/23Team MemberRelationshipSpecialtyStart DateEnd Date Cooper Eller MD [address] [id number] PCP - Ivrdgyc99/16/23Team MemberRelationshipSpecialtyStart DateEnd Date Cooper Eller MD [address] [place] [address] PCP - Hcizpmt91/16/23Team MemberRelationshipSpecialtyStart DateEnd Date Cooper Eller MD [address] [place] [address] PCP - [id number]/16/23Team MemberRelationshipSpecialtyStart DateEnd Date Cooper Eller MD [address] [place] [id number] PCP - Xefbysy94/16/23Team MemberRelationshipSpecialtyStart DateEnd Date Cooper Eller MD [address] [place] [id number] PCP - GeneralInternal Medicine11/23/22 Andrae Patino MD [address] [place] [address] Gastroenterology11/23/22Team MemberRelationshipSpecialtyStart DateEnd Date Cooper Eller MD [address] [place] [phone] PCP - GeneralInternal Medicine07/20/14Team MemberRelationshipSpecialtyStart Date End Date Cooper Eller MD [address] [place] [address] PCP - Qeegmel50/16/23Team MemberRelationshipSpecialtyStart DateEnd Date Cooper Eller MD [address] [place] [address] PCP - Cjtukit20/16/23Team MemberRelationshipSpecialtyStart DateEnd Date Cooper Eller MD [address] [place] [address] PCP - GeneralInternal Medicine07/20/14Team MemberRelationshipSpecialtyStart Date End Date Cooper Eller MD [address] [place] [address] PCP - GeneralInternal Medicine07/20/14am MemberRelationshipSpecialtyStart Date End Date Cooper Eller MD [address] [place] [address] PCP - GeneralInternal Medicine07/20/14am MemberRelationshipSpecialtyStart Date End Date Cooper Eller MD [address] [place] [address] PCP - GeneralInternal Medicine07/20/14am MemberRelationshipSpecialtyStart Date End Date Cooper Eller MD [address] [place] [address] PCP - GeneralInternal Medicine07/20/14am MemberRelationshipSpecialtyStart Date End Date Geri Vergara MD [address] [place] [address] PhysicianOrthopaedic Surgery09/26/22 Dee Mireles, WM-WET ROLLER [address] [place] [address] SJBFrvpmhspmjbqfo88/4/23 Team Status: Active Member Role/Relationship Status Dates NON STAFF Primary Care Provider Active Team Status: Inactive Member Role/Relationship Status Dates Tammy Mckeon APRN Attending Provider Active Start: April 01, 2025 End: April 01, 2025[facility] ProviderActiveStart: April 01, 2025 End: April 01, 2025 Team Status: Active Member Role/Relationship Status Dates NON STAFF Primary Care Provider Active Start: April 01, 2025 Fortino Fontaine ProviderActiveStart: April 01, 2025 Team Status: Inactive Member Role/Relationship Status Dates NON STAFF Primary Care Provider Active Start: April 01, 2025 End: April 01, 2025Fortino Fontaine ProviderActiveStart: April 01, 2025 End: April 01, 2025 Scheduled Active and Recently Administ ered Medications (unrecognized section and content) Medication Order/// acetaminophen (TYLENOL) tablet 650 mg (COMPLETED) 650 mg, Oral, ONCE, On Wed08/05/21 at 1230, For 1 dose, Maximum dose of acetaminophen is 4000 mg from all sources in 24 hours., Pre-op (day of surgery) * 1259 (Given - Provider: Aditi Felton, AURORA) clindamycin (CLEOCIN) 900 mg in dextrose 5 % 50 mL IVPB (COMPLETED) 900 mg, IntraVENous, ONCE, 1 dose, On Wed08/05/21 at 1300 * 1427 (New Bag - Provider: Zenon Baltazar, AURORA) * 1447 (Stopped - Provider: Zenon Baltazar, RN) famotidine (PEPCID) injection 20 mg (COMPLETED) 20 mg, IntraVENous, ONCE, On Wed08/05/21 at 1230, For 1 dose, Administer over 2 minutes., Pre-op (day of surgery) * 1259 (Given - Provider: Aditi Felton, AURORA) sodium chloride flush 0.9 % injection 5-40 [...] mL Midline or Central Line = 20 mL/lumen,Pre-op (day of surgery) * 2100 (Due) Medication Order/ lactated ringers infusion IntraVENous, at 100 mL/hr, CONTINUOUS, Starting on Wed08/05/21 at 1230, Pre-op (day of surgery) * 1230 (Due) lactated ringers infusion IntraVENous, at 125 mL/hr, CONTINUOUS, Starting on Wed08/05/21 at 1230, Pre-op (day of surgery) * 1254 (New Bag - Provider: Aditi Felton RN) * 1429 (NoRateChange - Provider: Judith Huerta APRN - CORPORATE OFFICER) * 1548 (Paused - Provider: WM Nash CRNA - Comment: Switch to gravity) * 1549 (Restarted - Provider: WM Nash CRNA) lactated ringers infusion IntraVENous, at 125 mL/hr, CONTINUOUS, Starting on Wed08/05/21 at 1515, PACU only * 1515 (Due) Medication Order/ 0.9 % sodium chloride infusion 25 mL, [...] Pain Severe (7-10), Starting on Wed08/05/21 at 1451,For 1 dose, Maximum dose of acetaminophen is 4000 mg from all sources in 24 hours., PACU only lidocaine-EPINEPHrine 2 percent-[id number] injection (CANCELED) PRN, Starting on Wed08/05/21 at 1449, Intra-op * 1449 (Given - Provider: Sandra Alvarenga MD - Comment: injection to [...] on Wed08/05/21 at 1204, For Line Patency: PeripheralIV = 5 mL; Midline or Central Line = 10 mL/lumen. If following IV push medication, administer flushat same rate as the IV push. Flush [...] = 20 mL/lumen, Pre-op (day of surgery) Medication Order09/18/// Flumazenil (ROMAZICON) injection 0.2 mg 0.2 mg, Intravenous, SEE ADMIN INSTRUCTIONS, Starting on Wed09/20/24 at 1053, Until Wed09/20/24 at 1452, Vial to bedside in procedure room. Administer ONLY UNDER THE DIRECTION OF PHYSICIAN. Reversal of Conscious Sedation Initial dose: 0.2 mg Repeat doses: 0.2 mg repeated at one-minute intervals Maximum total cumulative dose: 1mg, Intra-op/Intra-Proc lidocaine-epinephrine 2 %-1:[id number] injection 0-20 mL 0-20 mL, Infiltration, ONCE, 1 dose, On Wed09/20/24 at 1100, Subcutaneous injection as numbing agent., Intra-op/Intra-Proc * 1100 (Canceled Entry - Provider: System Discharge [...] response is noted after 4 doses, consider othercauses of respiratory depression. Vial to bedside in [...] 4 doses, consider other causes of respiratory d epression. Vial to bedside in procedure room. Administer ONLY UNDER THE DIRECTION OF PHYSICIAN to amaximum dose of 2mg., Intra-op/Intra-Proc oxyCODONE (ROXICODONE) tablet 2.5 mg (COMPLETED) 2.5 mg, Oral, ONCE, 1 dose, On Wed09/20/24 at 1430 * 1400 (Given - Provider: Kristen Stock RN) Prochlorperazine (COMPAZINE) injection 5 mg (COMPLETED) 5 mg, Intravenous, ONCE, 1 dose, On Wed09/20/24 at 1400, For IV route: dilute dose with 10mL normalsaline and give by slow IV push at a rate of 5mg/min. Maximum of 40mg/day. * 1333 (Given - Provider: Moni Jha RN) Medication Order504// fentaNYL (SUBLIMAZE) injection 0-300 mcg 0-300 mcg, Intravenous, Administer over 2 Minutes, ADMINISTER DIRECTED, Starting on Wed09/20/24 at 1053, Until Wed09/20/24 at 1452, intraoperative pain management, Administer during procedure as directed by physician. Recorded MAR dose is cumulative amount given during procedure., Intra-op/Intra-Proc * 1134 (Given - Provider: Smita Pyle RN) * 1141 (Given - Provider: Smita Pyle RN) * 1151 (Given - Provider: Smita Pyle RN) * 1203 (Given - Provider: Smita Pyle RN) * 1207 (Given - Provider: Smita Pyle RN) Iohexol (OMNIPAQUE) 300 MG/ML vial (COMPLETED) ONCE NEEDED, 1 dose, Starting on Wed09/20/24 at 1207, Until Wed09/20/24 at 1207, Intra-op/Intra-Proc * 1207 (Given - Provider: Jorge Serrano MD) Lidocaine 2 % injection (COMPLETED) ONCE NEEDED, 1 dose, Starting on Wed09/20/24 at 1150, Until Wed09/20/24 at 1150, Intra-op/Intra-Proc * 1150 (Given - Provider: Jorge Serrano MD) midazolam (VERSED) injection 0-10 mg 0-10 mg, Intravenous, ADMINISTER DIRECTED, Starting on Wed09/20/24 at 1053, Until Wed09/20/24 [id number], Procedural sedation, Administer during procedure as directed by physician. Recorded MAR dose is cumulative amount given during procedure., Intra-op/Intra-Proc * 1134 (Given - Provider: Smita Pyle RN) * 1141 (Given - Provider: Smita Pyle RN) * 1151 (Given - Provider: Smita Pyle RN) * 1203 (Given - Provider: Smita Pyle RN) * 1207 (Given - Provider: Smita Pyle, AURORA) Ondansetron 4mg/2ml (ZOFRAN) injection 4 mg (COMPLETED) 4 mg, Intravenous, ONCE NEEDED, 1 dose, Starting on Wed09/20/24 at 1053, Until Wed09/20/24 at 1225, Nausea, Intra-op/Intra-Proc * 1225 (Given - Provider: Christina Skaggs RN) Order Group 1: Naloxone (NARCAN) injection 0.1 mgJump to med 0.1 mg, Intravenous, SEE ADMIN INSTRUCTIONS, Starting on Wed09/20/24 at 1053, Until Wed09/20/24 at 1452, If RR </= 7 per min and difficult to arouse give naloxone 0.1 mg q 2 mins until RR > 8/min and/or drowsiness abates. Contact provider. If no response is noted after 4 doses, consider othercauses of respiratory depression. Vial to bedside in [...] 4 doses, consider other causes of respiratory d epression. Vial to bedside in procedure room. Administer ONLY UNDER THE DIRECTION OF PHYSICIAN to amaximum dose of 2mg., Intra-op/Intra-Proc Medication Order//01/2025 carvedilol (COREG) tablet 25 mg 25 mg, Oral, 2 TIMES DAILY, First dose on Wed09/28/24 at 1445, Until Discontinued, Administer with food to minimize the risk of orthostatic hypotension, On hold since Wed09/29/2024 at 0649 until manually unheld * 1529 (Not Given - Provider: Ronel Jackson RN - Reason: Pt NPO) * 2116 (Given - Provider: Zaida Moya RN) * 0649 (Held by provider - Provider: WM Hopper CNP - Reason: Other) * 0900 (Automatically Held - Provider: WM Hopper CNP) * 2100 (Automatically Held - Provider: Teresa Moss, VARNISH MAKER HELPER - WET ROLLER) cycloSPORINE (RESTASIS) 0.05 % ophthalmic emulsion 1 drop (Patient Supplied) 1 drop, Ophthalmic, 2 TIMES DAILY RESP, First dose (after last reorder) on Renee 09/28/24 at 2200, Until Discontinued, Please select a reason the therapeutic interchange was not accepted: Okay for Pharmacy to Substitute * 2151 (Given - Provider: Dana Fajardo RN) * 0906 (Given - Provider: Valorie Coronado RN) * 2000 (Due) levothyroxine (SYNTHROID) tablet 100 mcg 100 mcg, Oral, DAILY, First dose on Renee 09/28/24 at 1500, Until Discontinued, Tube feeding (TF) interaction, obtain physician order to manage, recommend holding TF for 30 minutes before and after dose. * 1528 (Not Given - Provider: Ronel Jackson RN - Reason: Pt NPO) * 0626 (Not Given - Provider: Valorie Coronado RN - Reason: Pt NPO) lidocaine 1 % injection 50 mg 50 mg, IntraDERmal, ONCE, 1 dose, On Wed09/29/24 at 1100 * 1121 (Not Given - Provider: Valorie Coronado RN - Reason: Other - Comment: access provides own medication) lidocaine 1 % injection 50 mg 50 mg, IntraDERmal, ONCE, 1 dose, On Wed09/29/24 at 1345 * 1434 (Canceled Entry - Provider: Valorie Coronado RN - Comment: [facility] provides own meds) meropenem (MERREM) 1,000 mg in sodium chloride 0.9 % 100 mL IVPB (Pxcc2Pes) (COMPLETED)(Linked Group 1) 1,000 mg, IntraVENous, ONCE, 1 dose, On Renee 09/28/24 at 1415, Antimicrobial Indications: Intra-Abdominal Infection, Use 20mm (Blue) [id number] Adapter Preparation instructions: Attach medication vial to one 20mm (Blue) [id number] adapter. Cayetano fluid bag with adapter, mix, and administer per order. * 1634 (New Bag - Provider: Ronel Jackson, RN) * 1704 (Stopped - Provider: Ronel Jackson RN) polyvinyl alcohol-povidone 5-6 MG/ML opthalmic solution 1 drop (CANCELED) 1 drop, Both Eyes, 2 TIMES DAILY, First dose on Renee 5/8/25 at 2100, Until Discontinued, Substitutedfor cycloSPORINE (RESTASIS). * 2117 (Given - Provider: Zaida Moya RN) sodium chloride 0.9 % bolus 1,000 mL (COMPLETED) 1,000 mL (14.4 mL/kg), IntraVENous, at 983.6 mL/hr, Administer over 61 Minutes, ONCE, On Wed09/28/24at 1500, For 1 dose * 1547 (New Bag - Provider: Ronel Jackson RN) * 1726 (Stopped - Provider: Ronel Jackson RN) sodium chloride 0.9 % bolus 1,000 mL (COMPLETED) 1,000 mL (14.2 mL/kg), IntraVENous, at 495.9 mL/hr, Administer over 121 Minutes, ONCE, On Wed09/29/24 at 0400, For 1 dose * 0350 (New Bag - Provider: Zaida Moya RN) * 0506 (Stopped - Provider: Eloisa Olguin RN) sodium chloride flush 0.9 % injection 5-40 mL 5-40 mL, IntraVENous, EVERY 12 HOURS SCHEDULED (2 times per day), First dose on Wed09/28/24 at 2100,Until Discontinued, For Line Patency: Peripheral IV = [...] Midline or Central Line = 20 mL/lumen * 2101 (Not Given - Provider: Dana Fajardo RN - Reason: IV Fluid Infusing) * 0749 (Not Given - Provider: Valorie Coronado RN - Reason: IV Fluid Infusing) * 2100 (Due) sodium chloride flush 0.9 % injection 5-40 mL 5-40 mL, IntraVENous, EVERY 12 HOURS SCHEDULED (2 times per day), First dose on Wed09/29/24 at 1100,Until Discontinued, For Line Patency: Peripheral IV = [...] Midline or Central Line = 20 mL/lumen * 1121 (Not Given - Provider: Valorie Coronado RN - Reason: IV Fluid Infusing) * 2100 (Due) sodium chloride flush 0.9 % injection 5-40 mL 5-40 mL, IntraVENous, EVERY 12 HOURS SCHEDULED (2 times per day), First dose on Wed09/29/24 at 2100,Until Discontinued, For Line Patency: Peripheral IV = [...] Midline or Central Line = 20 mL/lumen * 2100 (Due) ursodiol (ACTIGALL) tablet 500 mg (Patient Supplied) 500 mg, Oral, 2 TIMES DAILY, First dose on Wed09/28/24 at 2100, Until Discontinued, We do not have this medication in stock, and there is no direct substitute, or substitute was declined. The medication is marked patient supplied, however if the patient cannot provide their own medication then contac t the prescriber for an alternative. * 2116 (Not Given - Provider: Zaida Moya RN - Reason: Medication not available) * 0749 (Not Given - Provider: Valorie Coronado RN - Reason: Medication not available) * 2100 (Due) Medication Order09/27///01/2025 0.9 % sodium chloride infusion (CANCELED) IntraVENous, at 125 mL/hr, CONTINUOUS, Starting on Renee 09/28/24 at 1415, For 48 hours, Maintenance IVfluid order, if a bolus IV fluid order is present, begin this order after the bolus is complete. * 1713 (New Bag - Provider: Ronel Jackson, RN) * 0121 (New Bag - Provider: Zaida Moya, AURORA) * 0639 (Stopped - Provider: Valorie Coronado, AURORA) 0.9 % sodium chloride infusion IntraVENous, at 125 mL/hr, CONTINUOUS, Starting on Wed09/29/24 at 0630, For 33 hours, Maintenance IVfluid order, if a bolus IV fluid order is present, begin this order after the bolus is complete. * 0640 (New Bag - Provider: Valorie Coronado, AURORA) * 1008 (Rate/Dose Change - Provider: Valorie Coronado, RN) * 1338 (New Bag - Provider: Valorie Coronado, AURORA) norepinephrine (LEVOPHED) 16 mg in sodium chloride 0.9 % 250 mL infusion (premix) 1-100 mcg/min (0.9375-93.75 mL/hr, rounded to 0.9-93.8 mL/hr), IntraVENous, CONTINUOUS, Starting onWed09/29/24 at 1100, Until Discontinued, Titrate Infusion? Yes, Initial Infusion Dose: 5 mcg/min, Goal of Therapy is: MAP greater than 65 mmHg, Contact Provider if: Patient is receiving the maximum dose and is not achieving the goal of therapy, Vascular access recommendations: - Step 1: Is the concentration GREATER than 16mg/250mL? >Yes - REQUIRES A central line >No - Proceed to step 2 -Step2: Concentrations LESS THAN OR EQUAL TO 16mg/250mL, [...] Titrate infusion? is Yes : If rate LESSthan 10 mcg/min: Titrate by 2 mcg/min no [...] not at goal for >15 minutes, titrate infusionby 10 mcg/min every 2 minutes for a max of 10 minutes and contact the provider for further instructions/orders. Restarting the infusion: If the infusion has been stopped for less than or equal to 30 minutes, resume at previous dose. If the infusion has been stopped for greater than 30 minutes, resume at initial starting dose in order. * 1100 (Due) pantoprazole (PROTONIX) 80 mg in sodium chloride 0.9 % 100 mL infusion 8 mg/hr (10 mL/hr), IntraVENous, CONTINUOUS, Starting on Renee 09/28/24 at 1415, Until Discontinued * 1714 (New Bag - Provider: Ronel Jackson, RN) * 0328 (New Bag - Provider: Zaida Moya, AURORA) * 1339 (New Bag - Provider: Valorie Coronado RN) Medication Order//01/2025 0.9 % sodium chloride infusion IntraVENous, at [...] mL of blood to remove alteplase and residualclot then flush with 10 mL normal saline. [...] hour of each other unless specifically ordered. * 1450 (Given - Provider: Swati Schmidt RN) [...] hour of each other unless specifically ordered. * 1558 (See Alternative - Provider: Swati cShmidt RN) * 192 (Given - Provider: Zaida Moya, AURORA) HYDROmorphone HCl PF (DILAUDID) injection 0.5 mg(Linked Group 2) 0.5 mg, IntraVENous, EVERY 3 HOURS PRN, Starting on Renee 09/28/24 at 1554, Until Discontinued, Pain Severe (7-10), If oral and IV narcotics ordered, use oral first and only use IV if oral is ineffectiveor cannot take oral. Do Not give oral and IV within 1 hour of each other unless specifically ordered. * 1558 (Given - Provider: Swati Schmidt RN) * 1928 (See Alternative - Provider: Zaida Moya, AURORA) iopamidol (ISOVUE-370) 76 % injection 100 mL (COMPLETED) 100 mL, IntraVENous, IMG ONCE PRN, 1 dose, Starting on Renee 09/28/24 at 1458, Until Renee 09/28/24 at 1504, Other * 1504 (Given - Provider: Valerie Coughlin) ondansetron (ZOFRAN) injection 4 mg 4 mg, IntraVENous, EVERY 6 HOURS PRN, Starting on Renee 09/28/24 at 1400, Until Discontinued, Nausea, Vomiting * 1447 (Given - Provider: Swati Schmidt RN) [...] as the IV push. Flush volume is determinedby type of infusion therapy being given. For [...] as the IV push. Flush volume is determinedby type of infusion therapy being given. For [...] as the IV push. Flush volume is determinedby type of infusion therapy being given. For [...] at 1254, Until Wed09/29/24 at 1333, Other * 1333 (Given - Provider: Moe Trevino) Order Group 1: meropenem (MERREM) 1,000 mg in sodium chloride 0.9 % 100 mL IVPB ([id number]) (COMPLETED)Jump to med 1,000 mg, IntraVENous, ONCE, 1 dose, On Renee 09/28/24 at 1415, Antimicrobial Indications: Intra-Abdominal Infection, Use 20mm (Blue) [id number] Adapter Preparation instructions: Attach medication vial to one 20mm (Blue) [id number] adapter. Cayetano fluid bag with adapter, mix, and administer per order. Followed by meropenem (MERREM) 1,000 mg in sodium chloride 0.9 % 100 mL IVPB ([id number]) (CANCELED) 1,000 mg, IntraVENous, at 33.3 mL/hr, Administer over 180 Minutes, EVERY 8 HOURS, First dose on Thu09/28/24 at 2200, Use 20mm (Blue) Ozzc6Qth Adapter Preparation instructions: Attach medication vial to one 20mm (Blue) [id number] adapter. Cayetano fluid bag with adapter, mix, [...] and only use IV if oral is ineffectiveor cannot take oral. Do Not give oral and IV within 1 hour of each other unless specifically ordered. Medication Order// ferrous sulfate tablet 325 mg 325 mg, oral, Daily with breakfast, First dose on Wed10/03/24 at 0800, Give ferrous sulfate 2 hoursbefore or 4 hours after antacids. * 1000 (Given - Provider: Madeleine Espinoza RN) [...] 4 hours when NPO. Notify prescriber if bloodglucose greater than 400 mg/dL. Look-alike/sound-alike medication - verify indication for use. Prime with 2 units of insulin prior to administration. Prandial/supplemental Insulin. Pre-filled pens stable 28 days at room temperature. Insulin lispro should be administered within 15 minutes before or immediately after a meal. * 223 (Given - Provider: Daron Brush RN - Comment: BG 202) insulin lispro (HumaLOG) injection 1-5 Units 1-5 Units, subcutaneous, 3 times daily with meals, First dose on Wed10/02/24 at 1730, Daytime hyperglycemia dosing. For blood glucose 151-200 mg/dL, give 1 unit. For blood glucose 201-250 mg/dL, give2 units. For blood glucose 251-300 mg/dL, give [...] minutes before or immediately after a meal. * 1730 (Not Given - Provider: Sherie Maldonado RN - Reason: Order parameters not met) * 0828 (Given - Provider: Madeliene Espinoza RN - Comment: bs 245) * 1146 (Given - Provider: Madeleine Espinoza RN - [...] TO NEONATES Monitor thyroid function tests weekly * 1049 (Given - Provider: Deidre Payne RN) * 0559 (Given - Provider: Teresa Rojo, AURORA) * 1243 (JUL Hold - Provider: Automatic Transfer Provider - Reason: Patient not available) * 151 (MAR Unhold - Provider: Automatic Transfer Provider) * 0557 (Given - Provider: Daron Brush, RN) loratadine (CLARITIN) tablet 10 mg 10 mg, oral, Daily, First dose on Wed10/02/24 at 1715, Look-alike/sound-alike medication - verify indication for use. * 1755 (Given - Provider: Sherie Maldonado RN) * 0819 (Given - Provider: Madeleine Espinoza, AURORA) pantoprazole (PROTONIX) injection 40 mg 40 mg, intravenous, Every 12 hours, First dose on Wed09/29/24 at 2000, Look-alike/sound-alike medication - verify indication for use., Indication: Upper GI bleed * 0818 (Given - Provider: Chana Beauchamp, RN) * 1931 (Given - Provider: Teresa Rojo, AURORA) * 0728 (Given - Provider: Sherie Maldonado RN) * 1243 (MAR Hold - Provider: Automatic Transfer Provider - Reason: Patient not available) * 1517 (MAR Unhold - Provider: Automatic Transfer Provider) * 202 (Given - Provider: Daron Brush, RN) * 0820 (Given - Provider: Madeleine Espinoza, AURORA) sodium chloride 0.9 % flush 10 mL(Linked Group 1) 10 mL, intravenous, Every 8 hours, First dose on 09/30/24 at 1445, Short-term Central Line. IVP to lumens. * 0304 (Given - Provider: Christina Adams RN) * 1445 (Given - Provider: Chana Mazey, RN) * 2245 (Canceled Entry - Provider: Teresa Rojo, RN) * 0645 (Canceled Entry - Provider: Teresa Rojo, RN) * 1243 (JUL Hold - Provider: Automatic Transfer Provider - Reason: Patient not available) * 1300 (Not Given - Provider: Sherie Maldonado RN - Reason: Other - Comment: pt not on floor) * 1517 (JUL Unhold - Provider: Automatic Transfer Provider) * 2241 (Given - Provider: Daron Brush, RN) * 0557 (Given - Provider: Daron Brush RN) * 1445 (Not Given - Provider: Madeleine Espinoza, AURORA - Reason: Other - Comment: picc removed) ursodioL (MIHAI FORTE) tablet 500 mg 500 mg, oral, 2 times daily, First dose on Wed10/02/24 at 2100 * 2025 (Given - Provider: Daron Brush, RN) * 0818 (Given - Provider: Madeleine Espinoza, RN) Medication Order// sodium chloride 0.9 % infusion () 75 mL/hr, intravenous, Continuous, Starting on Wed09/29/24 at 2015, For 1 day * 0317 (Rate/Dose Verify - Provider: Christina Adams, AURORA) * 0400 (Stop Bag - Provider: Christina Adams, RN) Medication Order/// artificial tears(hypromellose) (ISOPTO TEARS) 0.5 % ophthalmic [...] phosphorus greater than 5.5 mg/dL. VESICANT (RED) * 1243 (JUL Hold - Provider: Automatic Transfer Provider - Reason: Patient not available) * 1517 ([facility] Unhold - Provider: Automatic Transfer Provider) calcium gluconate IVPB 1000 mg/50 mL (20 mg/mL premix)(Linked Group 2) 1,000 mg, intravenous, at 50 mL/hr, Administer over 60 Minutes, As needed, for ionized calcium level 3.5 to 4.4 mg/dL, Starting on Wed09/29/24 at 1955, Recheck ionized calcium 6 hours after infusion. Hold calcium replacement for phosphorus greater than 5.5 mg/dL. VESICANT (RED) * 1243 ([facility] Hold - Provider: Automatic Transfer Provider - Reason: Patient not available) * 1517 ([facility] Unhold - Provider: Automatic Transfer Provider) calcium gluconate IVPB 2000 mg/100 mL (20 mg/mL premix)(Linked Group 2) 2,000 mg, intravenous, at 100 mL/hr, Administer over 60 Minutes, As needed, for ionized calcium level 3 to 3.4 mg/dL, Starting on Wed09/29/24 at 1955, Recheck ionized calcium 6 hours after infusion. Hold calcium replacement for phosphorus greater than 5.5 mg/dL. VESICANT (RED) * 1243 ([facility] Hold - Provider: Automatic Transfer Provider - Reason: Patient not available) * 1517 ([facility] Unhold - Provider: Automatic Transfer Provider) dextrose (GLUTOSE) 40 % gel 15 g 15 g, oral, As needed, low blood sugar, blood glucose less than 70 mg/dL, Starting on Wed09/29/24 [id number], If patient conscious and taking PO. If blood glucose is not greater than 70 mg/dL after initial treatment, repeat treatment. * 1243 ([facility] Hold - Provider: Automatic Transfer Provider - Reason: Patient not available) * 1517 ([facility] Unhold - Provider: Automatic Transfer Provider) dextrose 50 % in water (D50W) 50% solution 25 mL 25 mL, intravenous, As needed, low blood sugar, blood glucose less than 70 mg/dL and unconscious orNPO with IV access, Starting on Wed09/29/24 at [...] mg/dL after initial treatment, repeat treatment. VESICANT (RED)Warning: HYPERTONIC solution. * 1243 ([facility] Hold - Provider: Automatic Transfer Provider - Reason: Patient not available) * 1517 ([facility] Unhold - Provider: Automatic Transfer Provider) fentaNYL (SUBLIMAZE) injection 25 mcg(Linked Group 3) 25 mcg, intravenous, Every 2 hour PRN, for mild to moderate pain, Starting on Wed09/29/24 at 2002, Look-alike/sound-alike medication - verify indication for use. * 1243 ([facility] Hold - Provider: Automatic Transfer Provider - Reason: Patient not available) * 1517 ([facility] Unhold - Provider: Automatic Transfer Provider) fentaNYL (SUBLIMAZE) injection 50 mcg(Linked Group 3) 50 mcg, intravenous, Every 2 hour PRN, for severe pain, Starting on Wed09/29/24 at 2002, Look-alike/sound-alike medication - verify indication for use. * 1243 ([facility] Hold - Provider: Automatic Transfer Provider - Reason: Patient not available) * 1517 ([facility] Unhold - Provider: Automatic Transfer Provider) glucagon [...] additional orders. If blood glucose is not greaterthan 70 mg/dL after initial treatment, repeat treatment. * 1243 ([facility] Hold - Provider: Automatic Transfer Provider - Reason: Patient not available) * 1517 ([facility] Unhold - Provider: Automatic Transfer Provider) hydrALAZINE (APRESOLINE) injection 10 mg 10 mg, intravenous, Every 6 hours PRN, high blood pressure, Starting on Wed10/01/24 at 0940, For systolic blood pressure greater than 160 mmHg Look-alike/sound-alike medication - verify indication for use. Administer IV doses as a slow IV push; maximum rate: 5 mg/minute. * 0927 (Given - Provider: Sherie Maldonado RN) * 1243 ([facility] Hold - Provider: Automatic Transfer Provider - Reason: Patient not available) * 1517 ([facility] Unhold - Provider: Automatic Transfer Provider) magnesium sulfate IVPB 2000 mg/50 mL in iso-osmotic water (40 mg/mL premix) (Linked Group 4) 2,000 mg, intravenous, at 25 mL/hr, Administer over 120 Minutes, As needed, for magnesium level 1.7to 1.9 mg/dL or ionized magnesium level 0.45 to 0.5 mmol/L, Starting on Wed09/29/24 at 1955, Use premix solution. Default to ionized magnesium level in cases where patient has both magnesium and ionized magnesium results. If administered, check ionized magnesium (or total magnesium if ionized magnesium unavailable) level 4 hours after infusion. * 0401 (New Bag - Provider: Christina Adams RN) * 0600 (Rate/Dose Verify - Provider: Christina Adams RN) * 0605 (Stop Bag - Provider: Christina Adams RN) * 0349 (New Bag - Provider: Teresa Rojo RN) * 0549 (Stop Bag - Provider: Teresa Rojo RN) * 1243 ([facility] Hold - Provider: Automatic Transfer Provider - Reason: Patient not available) * 1517 ([facility] Unhold - Provider: Automatic Transfer Provider) magnesium sulfate IVPB 4000 mg/100 mL in iso-osmotic water (40 mg/mL premix) (Linked Group 4) 4,000 mg, intravenous, at 25 mL/hr, Administer over 240 Minutes, As needed, for magnesium level 1.6mg/mL or less, or ionized magnesium level 0.44 mmol/L or less, Starting on Wed09/29/24 at 1955, Use premix solution. Default to ionized magnesium level in cases where patient has both magnesium and ionized magnesium results. If administered, check ionized magnesium (or total magnesium if ionized magnesium unavailable) level 4 hours after infusion. * 0401 (See Alternative - Provider: Christina Adams RN) * 0600 (See Alternative - Provider: Christina Adams RN) * 0605 (See Alternative - Provider: Christina Adams RN) * 0349 (See Alternative - Provider: Teresa Rojo RN) * 0549 (See Alternative - Provider: Teresa Rojo RN) * 1243 ([facility] Hold - Provider: Automatic Transfer Provider - Reason: Patient not available) * 1517 ([facility] Unhold - Provider: Automatic Transfer Provider) potassium chloride (K-TAB,KLOR-CON) CR tablet 20-40 mEq(Linked Group 5) 20-40 mEq, oral, As needed, for potassium replacement, Starting on Wed09/29/24 at 1955, Progress to oral potassium replacement when patient tolerating oral intake. If dose administered, recheck potassium level 4 hours after last dose. For potassium level 3.4 to 3.8 mmol/L and Serum Creatinine 1.2 orless=30 mEq. For potassium level 3.1 to 3.3 [...] 1.2=40 mEq. Do not crush or chew. * 1243 ([facility] Hold - Provider: Automatic Transfer Provider - Reason: Patient not available) * 1517 ([facility] Unhold - Provider: Automatic Transfer Provider) potassium chloride (KAYCIEL) 20 mEq/15 mL solution 20-40 mEq(Linked Group 5) 20-40 mEq, oral, As needed, potassium replacement, Starting on Wed09/29/24 at 1955, Progress to oralpotassium replacement when patient tolerating oral intake. If [...] after per policy and monitor potassium levels * 1243 ([facility] Hold - Provider: Automatic Transfer Provider - Reason: Patient not available) * 1517 ([facility] Unhold - Provider: Automatic Transfer Provider) potassium chloride IVPB 10 mEq/100 mL in water (0.1 mEq/mL premix)(Linked Group 6) 10 mEq, intravenous, at 100 mL/hr, Administer over 60 Minutes, As needed, for potassium replacement, Starting on Wed09/29/24 at 195, Administer Potassium Chloride IVPB in 10 mEq [...] mEq over a minimum of 1 hour. * 1243 ([facility] Hold - Provider: Automatic Transfer Provider - Reason: Patient not available) * 1517 ([facility] Unhold - Provider: Automatic Transfer Provider) potassium [...] For potassium level 3 mmol/L or less andSerum Creatinine greater than 1.2 = 40 mEq VESICANT (YELLOW) * 1243 ([facility] Hold - Provider: Automatic Transfer Provider - Reason: Patient not available) * 1517 ([facility] Unhold - Provider: Automatic Transfer Provider) sodium chloride 0.9 % flush 10 mL(Linked Group 1) 10 mL, intravenous, As needed, line care, Starting on 09/30/24 at 1442, Short-term Central Line.IVP to lumens before and after each use. * 1243 ([facility] Hold - Provider: Automatic Transfer Provider - Reason: Patient not available) * 1517 ([facility] Unhold - Provider: Automatic Transfer Provider) sodium chloride 0.9 % flush 20 mL(Linked Group 1) 20 mL, intravenous, As needed, line care, Starting on 09/30/24 at 1442, Short-term Central Line.IVP to lumens after lab draws, blood infusion, and meds known to precipitate. * 1243 ([facility] Hold - Provider: Automatic Transfer Provider - Reason: Patient not available) * 1517 ([facility] Unhold - Provider: Automatic Transfer Provider) Order Group 1: sodium chloride 0.9 % flush 10 mLJump to med 10 mL, intravenous, Every 8 hours, First dose on 09/30/24 at 1445, Short-term Central Line. IVP to lumens. And sodium chloride 0.9 % flush 10 mLJump to med 10 mL, intravenous, As needed, line care, Starting on 09/30/24 at 1442, Short-term Central Line.IVP to lumens before and after each use. And sodium chloride 0.9 % flush 20 mLJump to med 20 mL, intravenous, As needed, line care, Starting on 09/30/24 at 1442, Short-term Central Line.IVP to lumens after lab draws, blood infusion, [...] 120 Minutes, As needed, for magnesium level 1.7to 1.9 mg/dL or ionized magnesium level 0.45 [...] 240 Minutes, As needed, for magnesium level 1.6mg/mL or less, or ionized magnesium level 0.44 [...] to 3.8 mmol/L and Serum Creatinine 1.2 orless=30 mEq. For potassium level 3.1 to 3.3 [...] Starting on Wed09/29/24 at 1954, Progress to oralpotassium replacement when patient tolerating oral intake. If [...] For potassium level 3 mmol/L or less andSerum Creatinine greater than 1.2 = 40 mEq [...] mEq over a minimum of 1 hour. Medication Order// BUPivacaine (PF) (MARCAINE) 0.5 % injection (CANCELED) PRN, Starting on Wed03/21/25 at 0803, Until Wed03/21/25 at 0809, Intra-op * 0803 (Given - Provider: Sandra Alvarenga MD) lidocaine-EPINEPHrine 1 %-[id number] injection (CANCELED) PRN, Starting on Wed03/21/25 at 0804, Until Wed03/21/25 at 0809, Intra-op * 0804 (Given - Provider: Sandra Alvarenga MD - Comment: mixed 50/50 with Marcaine) Reason for Visit (unrecogniz ed section and content) SpecialtyDiagnoses / ProceduresReferred By ContactReferred To ContactRadiology Diagnoses Spinal stenosis of lumbar region, unspecified whether neurogenic claudication present Procedures MR NEURO IMAGE IMPORT(WHIT) DOWNLOAD POWERSHARE IMAGES TO Geri Garay MD Long [employer]ail [facility] [place] [address] [facility] [address] [place] [address] [place] [address] Referral IDStatusReasonStart DateExpiration DateVisits RequestedVisits [id number]/3/20235/[id number] / Procedures Referred By ContactReferred To ContactRadiology Diagnoses Myelopathy (HCC) Procedures MR NEURO IMAGE IMPORT(WHIT) DOWNLOAD POWERSHARE IMAGES TO [facility] Geri Vergara MD [address] [place] [address] [facility] [address] [place] [address] [place] [address] Referral IDStatusReasonStart DateExpiration DateVisits RequestedVisits [id number]/5/20236/[id number] painReasonComments Leg/thigh symptomsReasonCommentsMonitoring/follow-upSpecialtyDiagnoses / ProceduresReferred By ContactReferred To ContactRadiology Diagnoses Cervical spondylosis with myelopathy Procedures CT C-SPINE W/O CONTRAST Geri Vergara MD [address] [place] [address] [facility] [address] SCAN Referral IDStatusReasonStart DateExpiration DateVisits RequestedVisits [id number]/25/20239/[id number] / Procedures Referred By ContactReferred To ContactGeneral Surgery Diagnoses Cervical spondylosis with myelopathy Cervical spondylosis with myelopathy [M47.12] Procedures LAMINOPLASTY, CERVICAL, W/SPINAL CORD DECOMPRESS, 2/> VERTEBRAL SEGMENTS W/POST BONE RECONSTRUCT LAMINOPLASTY, POSTERIOR CERVICAL Geri Vergara MD [address] [place] [address] [facility] [address] [place] [id number] Phone: [phone] Referral IDStatJacintaStart DateExpiration DateVisits RequestedVisits [id number] DateCommentsHealth Keykhfddhne05/17/2023Reason CommentsPost Op CheckReasonOnset DateCommentsHealth Tmawqelwvpo22/12/2023Reason CommentsPost Op CheckSpecialtyDiagnoses / ProceduresReferred By ContactReferred To ContactRadiology Diagnoses Cervical spondylosis with myelopathy Procedures XR C-SPINE FLEX/EXT ONLY 2 VIEWS Geri Vergara MD [address] [place] [address] [facility] [address] [place] [address] Referral IDStatusReasonStart DateExpiration DateVisits RequestedVisits [id number]/24/20241/[id number] PainPost Op CheckReferral IDStatusReasonStart DateExpiration DateVisits RequestedVisits [id number] Review/[id number]-lf ReasonOnset JrpxOgvhbqhoPojoivqcfuww33/01/2024ReasonCommentsPainReasonComments PainReasonOnset DateCommentsEloquis avunxlpcpfogd59/26/2024ReasonComments Follow-upReasonCommentsNeck pain INFORMATION SOURCE (unrecogn ized section and content) DATE CREATED AUTHOR 10/02/2022 [facility] DATE CREATED AUTHOR AUTHOR'S ORGANIZ ATION 11/11/2022 [facility] DATE CREATED AUTHOR AUTHOR'S ORGANIZ ATION 02/01/2024 [facility] DATE CREATED AUTHOR AUTHOR'S ORGANIZ ATION 08/30/2024 [facility] DATE CREATED AUTHOR AUTHOR'S ORGANIZ ATION 09/27/2024 [facility] DATE CREATED AUTHOR AUTHOR'S ORGANIZ ATION 10/22/2024 [facility] DATE CREATED AUTHOR AUTHOR'S ORGANIZ ATION 10/27/2024 [facility] DATE CREATED AUTHOR AUTHOR'S ORGANIZ ATION 01/08/2025 [facility] DATE CREATED AUTHOR AUTHOR'S ORGANIZ ATION 03/02/2025 [facility] DATE CREATED AUTHOR AUTHOR'S ORGANIZ ATION 03/21/2025 [facility] DATE CREATED AUTHOR AUTHOR'S ORGANROBYN ATION 04/04/2025 [facility] DATE CREATED AUTHOR AUTHOR'S ORGANROBYN ATION 04/05/2025 [facility] Goals (unrecognized section and content) Goals may be documented in a n alternate section FOR RECORDS PERTAINING TO PATIENTS WHO ARE [...] THE PRIMARY CLINICAL RECORDS. [facility]. provides no warranty or guarantee of the accuracy or completeness of information in this document.
== END 2025-04-13 12:07 | disposition home or self-care (01) ==
LOC: LAB 12:10
PROVIDERS: PCP Internal Medicine; Visit Provider Internal Medicine
DX: E11.9 Type 2 diabetes mellitus without complications (principal)
CPT/HCPCS: 36415; 83036